=== PATIENT | female | born 1970 | race Caucasian/White ===

== ENCOUNTER 2020-02-03 03:00 | Emergency (ER) | payer MEDICARE, MEDICAID, SELFPAY ==
--- NOTE | ~2020-02-03 | CT_ITS ---
EXAMINATION: CT abdomen pelvis w con DATE: 02/03/2020 03:55 INDICATION: Epigastric abdominal pain. Nausea. TECHNIQUE: Computed tomography (CT) of the abdomen and pelvis was performed with 100 mL Omnipaque 350 intravenous contrast. Automated exposure control and iterative reconstruction technique were employe d. The dose-length product was 293.07 mGy-cm. COMPARISON: None. FINDINGS: The visualized portions of the lung bases are clear without pneumonia or pleural effusion. The heart size is normal. No pericardial effusion. There are areas of low-attenuation in segment III of the liver. A calcification in the liver is consistent with old granulomatous disease. There are ch anges of cholecystectomy. Pancreas divisum is noted. The spleen and adrenal glands are normal. There are cysts in the kidneys measuring up to 1.4 cm in the right. There are no dilated loops of bowel. Th e appendix is normal. The stomach demonstrates changes of fundoplication. There are no pathologically enlarged lymph nodes. There is no free intraperitoneal fluid. There is lumbar dextroscoliosis and mi ld spondylosis. IMPRESSION: 1. Areas of low attenuation in segment III of the liver that may be steatosis or infarct. Reviewed, dictated and finalized at location A. IMPRESSION: 1. Areas of low attenuation in segment III of the liver that may be steatosis o r infarct.
[2020-02-03 02:57] VITALS: BP 132/92; PULSE 100; RESP 17; TEMP 36.3; O2SAT 98
--- NOTE | 2020-02-03 03:12 | ED.ABDPAIN ---
HPI - Abdominal Pain General Chief Complaint: Abdominal Pain Stated Complaint: ABD PAIN Time Seen by Provider: 02/03/20 03:08 Source: RN notes reviewed History of Present Illness HPI narrative: Patient presents emergency department from home via EMS for abdominal pain. Patient states symptoms began 1 week ago. States she is had pain across the upper abdomen described as cramping in nature associated with nausea vomiting and diarrhea. Patient states approximate 1 week ago she was seen at [facility] and diagnosed with colitis. States she is follow-up with her PCP and was started on Augmentin and Cipro but did not like the way the Cipro made her feel and stopped taking the Cipro. Patient was given Zofran by EMS in route. Denies any fevers or chills chest pain shortness of breath or any other symptoms. Patient states the pain is worse with eating Related Data Home Medications Medication Instructions Recorded Confirmed amoxicillin-pot clavulanate 1 tablet PO Q12H 02/03/20 [Augmentin] ondansetron HCl [Zofran] 4 mg PO Q6H PRN 02/03/20 venlafaxine [Effexor XR] 75 mg PO DAILY 02/03/20 Allergies Allergy/AdvReac Type Severity Reaction Status Date / Time azithromycin Allergy Unknown STOMACH Verified 02/03/20 03:22 UPSET PROCHLORPERAZINE EDISYLATE Allergy Severe CONFUSION Uncoded 02/03/20 03:22 PROCHLORPERAZINE MALEATE Allergy Severe CONFUSION Uncoded 02/03/20 03:22 Review of Systems Review of Systems: Narrative: Gen.: Denies fevers or chills ENT: Denies congestion Respiratory: Denies shortness of breath or cough CV: Denies chest pain or palpitations GI: See HPI denies burning, urgency, frequency or hematuria Musculoskeletal: Denies back pain or muscle pain Neuro: Denies numbness, tingling, weakness or focal weakness Skin: Denies rash Except as documented, all other systems reviewed and negative [facility] Past Medical History Medical History (Updated 02/03/20 @ 05:04 by Rip Anderson DO) Migraine headache Surgical History Surgical History (Updated 02/03/20 @ 03:13 by Rip Anderson DO) History of cholecystectomy Family History Family History (Updated 04/27/14 @ 07:13 by DOCTOR UNKNOWN) Mother Family history of elevated blood lipids Family history of arthritis Sibling Family history of arthritis Other Cerebrovascular accident Family history of cardiovascular disease Hypertension Social History Social History Smoking status: Never smoker Alcohol intake: current Exam Narrative: Exam Narrative: APPEARANCE: No acute distress, nontoxic, resting in bed HEENT: Normocephalic, atraumatic, OMM RESPIRATORY: No respiratory distress, clear to auscultation bilaterally with no rhonchi wheezing or rales CARDIOVASCULAR: RRR s murmur ABDOMINAL: Soft, nondistended, tender palpation epigastric, right upper quadrant left upper quadrant, no tenderness right lower quadrant left lower quadrant, no rebound or guarding MUSCULOSKELETAl: Moves all extremities. No clubbing, cyanosis or edema. NEURO: Awake and alert. Following commands, speech normal, no focal deficits SKIN:: Warm, dry. Normal Color PSYCHIATRIC: Normal affect/mood Course Course Emergency Course: Patient states that they are feeling much better at this time. States abdominal pain has resolved. Repeat abdominal exam shows the patient's abdomen to be soft and nontender. Discussed with patient results of workup and diagnosis. Discussed need for follow-up with primary care physician, reasons to return to the emergency department in proper use of medication. Patient understands and agrees to current treatment plan. Discussed with patient need for follow-up with GI and need for possible EGD Vital Signs Vital signs: Vital Signs Temperature 97.3 F L 02/03/20 02:57 Pulse Rate 100 02/03/20 02:57 Respiratory Rate 17 02/03/20 02:57 Blood Pressure 132/92 H 02/03/20 02:57 Puls
[2020-02-03] MEDS: MORPHINE SULFATE 4 MG/ML INJ IV PUSH (03:19)
[2020-02-03] MEDS: SODIUM CHLORIDE 0.9% IV 1,000 ML 999 ML IV CONT (03:19)
[2020-02-03 03:31] LABS: Basophils Percent Auto 0.4 % (0.2-1.2); Eosinophils Percent Auto 0.7 % (0-4.4); Hematocrit 39.8 % (37.0-47.0); Hemoglobin 13.4 g/dL (12.0-15.0); Immature Granulocyte Absolute 0.03 K/mm3 (0.00-0.031); Immature Granulocyte Percent A 0.5 % (0-0.5); Lymphocytes Percent Auto 24.6 % (18.3-44.2); Mean Corpuscular HGB Conc 33.7 g/dl (32-36); Mean Corpuscular Hemoglobin 30.3 pg (26-34); Mean Platelet Volume 10.9 fl (7.4-10.4); Monocytes Absolute Auto 0.5 K/mm3 (0.1-0.6); Monocytes Percent Auto 8.6 % (2.6-8.5); Neutrophils Absolute Auto 3.7 K/mm3 (1.3-6.7); Neutrophils Percent Auto 65.2 % (45.5-73.1); Platelet Count Result 285 k/mm3 (150-375); Red Blood Count 4.42 M/mm3 (4.2-5.4); Red Cell Distribution Width 12.7 % (11.5-14.5); White Blood Count 5.7 K/mm3 (4.5-10.0)
[2020-02-03 03:39] LABS: Lactic Acid Reflex 2.1 mmol/L (0.7-2.1)
[2020-02-03 03:40] LABS: Alanine Aminotransferase 19 U/L (4-35); Albumin Level 5.2 g/dL (3.5-5.1); Alkaline Phosphatase 74 U/L (38-126); Aspartate Amino Transferase 37 U/L (14-36); Bilirubin,Total 0.6 mg/dL (0.2-1.3); Blood Urea Nitrogen 10 mg/dL (7-17); Carbon Dioxide 26 mmol/L (22-30); Chloride 100 mmol/L (98-107); Estimated CRCL calculation 72 ml/min; Estimated Glomerular Filt Rate > 60; Glucose 115 mg/dL (65-105); Lipase 306 U/L (23-300); Potassium 3.1 mmol/L (3.4-5.0); Sodium 138 mmol/L (137-145)
[2020-02-03 03:45] LABS: Prothrombin Time 12.9 Seconds (11.1-14.7)
[2020-02-03 03:48] LABS: Partial Thromboplastin Time 27.9 SECONDS (22.3-36.8)
[2020-02-03 03:59] LABS: Add Urine Microscopic? NO; Appearance Urine Clear (Clear); Bacteria Urine Trace /hpf; Bilirubin Urine Negative (Negative); Blood Urine Negative (Negative); Color Urine Straw (Yellow); Glucose Urine UA Negative (Negative); Ketones Urine Negative (Negative); Leukocyte Esterase Ur Negative LEU/UL (Negative); Mucus Urine Rare /lpf; Nitrate Urine Negative (Negative); Protein Urine Negative (Negative); RBC Urine 0-2 /hpf (0-2); Specific Grav Ur 1.005 (1.001-1.035); Squamous Epithelial Cell Urine Moderate /hpf (Few); Urobilinogen Urine Negative mg/dL (<2.0); WBC Urine 0-3 /hpf
[2020-02-03 04:15] VITALS: BP 133/76; PULSE 57; RESP 16; O2SAT 100
[2020-02-03] MEDS: DICYCLOMINE HCL INJ 20 MG/2 ML VIAL IM (04:17)
[2020-02-03] MEDS: POTASSIUM CHLORIDE 20 MEQ TABLET 40 MEQ PO (05:10)
[2020-02-03] MEDS: PANTOPRAZOLE SODIUM IV 40 MG VIAL IV PUSH (05:10)
[2020-02-03 05:14] VITALS: BP 123/80; PULSE 64; RESP 15; O2SAT 100
[2020-02-03 06:25] LABS: Reflex Lactic Acid Yes or No Add Lactic
--- NOTE | 2020-02-03 13:27 | ECG_ITS ---
Measurements Intervals [place] Rate: 63 P: 51 ND: 122 QRS: 52 QRSD: 88 T: 43 QT: 434 QTc: 444 Interpretive Statements SINUS RHYTHM FREQUENT ATRIAL PREMATURE COMPLEXES NONSPECIFIC ST & T-WAVE ABNORMALITY- ANT/INF LEADS BASELINE ARTIFACT- II, III, AVF ABNORMAL ECG Electronically Signed On 02-03-2020 14:38:21 CDT by Cabrera Myoa D.O.
== END 2020-02-03 05:25 | disposition home or self-care (01) ==
PROVIDERS: Emergency Provider Emergency Medicine
DX: R10.10 Upper abdominal pain, unspecified (principal); I49.1 Atrial premature depolarization; R94.31 Abnormal electrocardiogram [ECG] [EKG]
CPT/HCPCS: 36415; 74177; 80053; 81003; 83605; 83690; 85025; 85610; 85730; 93005; 96361; 96372; 96374; 96375; 99284; A9270; C9113; J0500; J2270; J7030; Q9967

== ENCOUNTER 2020-02-03 05:59 | Observation (INO) | payer MEDICARE, MEDICAID, SELFPAY ==
[2020-02-03] VITALS (22 sets, daily range): BP systolic 99–137; BP diastolic 54–84; PULSE 49–91; RESP 14–21; TEMP 36.4–36.8; O2SAT 95–100; BMI 22.6
--- NOTE | ~2020-02-03 | XR_ITS ---
EXAMINATION: XR chest 1V portable DATE: 02/03/2020 06:27 INDICATION: Dizziness. TECHNIQUE: A single frontal view of the chest was obtained. COMPARISON: CT abdomen and pelvis 02/03/2020 FINDINGS: The chest demonstrates clear lungs without pneumonia, pleural effusion, or pneumothorax. Th e heart size is normal. IMPRESSION: 1. No acute cardiopulmonary disease. Reviewed, dictated and finalized at location A.
--- NOTE | ~2020-02-03 | MR_ITS ---
EXAMINATION: MR abdomen wo/w con DATE: 02/04/2020 16:00 INDICATION: Abnormal liver function tests. TECHNIQUE: Magnetic resonance imaging (MRI) of the abdomen was performed without and with 10 mL Multi Tayla intravenous contrast. Sequences included coronal T2-weighted FS FSE, coronal and axial FS FIEST A, axial T2-weighted FSE, coronal LAVA-flex, axial STIR FSE, axial DWI, axial dual-echo T1-weighted F SPGR, and axial LAVA. Postcontrast sequences included coronal LAVA-flex and a time course of axial LA VA. COMPARISON: CT abdomen and pelvis 02/03/2020 FINDINGS: There is a calcification in the liver, consistent with old granulomatous disease. There is focal stea tosis in segment III of the liver correlating with the CT abnormality. Periportal edema is noted. The portal veins are patent. The gallbladder is absent. The spleen, pancreas, and adrenal glands are nor mal. There are cysts in the kidneys measuring up to 12 mm in the right. There are no dilated loops of bowel. There is a small volume of ascites. There are no pathologically enlarged lymph nodes. IMPRESSION: 1. Focal steatosis in segment III of the liver correlating with the CT abnormality. 2. Small volume of ascites. Reviewed, dictated and finalized at location E. IMPRESSION: 1. Focal steatosis in segment III of the liver correlating with the CT abnormal ity. 2. Small volume of ascites.
--- NOTE | 2020-02-03 06:01 | ECG_ITS ---
Measurements Intervals [place] Rate: 67 P: SC: 0 QRS: 57 QRSD: 83 T: 15 QT: 399 QTc: 422 Interpretive Statements ATRIAL FIBRILLATION BORDERLINE ST-T WAVE ABNORMALITY- DIFFUSE LEADS BASELINE ARTIFACT- I, II, III, AVR, AVL, AVF, V1-V6 ABNORMAL ECG Electronically Signed On 02-03-2020 7:06:36 CDT by Cabrera Moya D.O.
--- NOTE | 2020-02-03 06:12 | ED.DIZZY ---
HPI - Dizziness General Chief Complaint: Dizziness Stated Complaint: feeling dizzy and nauseated Time Seen by Provider: 02/03/20 06:01 History of Present Illness HPI Narrative: Patient presents to the emergency department from the emergency department waiting room for nausea. Patient had been seen in the emergency department for abdominal pain over the past week associated with nausea vomiting. The patient states she is waiting the waiting room when she again became nauseous states that she had a hot feeling go across her and became dizzy. At that time the patient checked back in for further evaluation. Patient states she still feels nauseous at this time. She denies any current abdominal pain denies chest pain shortness of breath or any other symptoms. The patient had previously received Zofran by EMS. Related Data Home Medications Medication Instructions Recorded Confirmed amoxicillin-pot clavulanate 1 tablet PO Q12H 02/03/20 [Augmentin] ondansetron HCl [Zofran] 4 mg PO Q6H PRN 02/03/20 venlafaxine [Effexor XR] 75 mg PO DAILY 02/03/20 Allergies Allergy/AdvReac Type Severity Reaction Status Date / Time azithromycin Allergy Unknown STOMACH Verified 02/03/20 06:44 UPSET PROCHLORPERAZINE EDISYLATE Allergy Severe CONFUSION Uncoded 02/03/20 06:44 PROCHLORPERAZINE MALEATE Allergy Severe CONFUSION Uncoded 02/03/20 06:44 Review of Systems Review of Systems: Narrative: Gen.: Denies fevers or chills Eyes: Denies eye pain or visual change ENT: Denies congestion Respiratory: Denies shortness of breath or cough CV: Denies chest pain or palpitations GI: Reports nausea vomiting and abdominal pain denies diarrhea Musculoskeletal: Denies back pain or muscle pain Neuro: Denies numbness, tingling, weakness or focal weakness reports dizziness Skin: Denies rash Except as documented, all other systems reviewed and negative COUNTS INCLUDE 234 BEDS AT THE [facility] Past Medical History Medical History Migraine headache Surgical History Surgical History (Updated 02/03/20 @ 03:13 by Rip Anderson DO) History of cholecystectomy Family History Family History (Updated 04/27/14 @ 07:13 by DOCTOR UNKNOWN) Mother Family history of elevated blood lipids Family history of arthritis Sibling Family history of arthritis Other Cerebrovascular accident Family history of cardiovascular disease Hypertension Social History Social History Smoking status: Never smoker Alcohol intake: current Gender identity (if verbalized by the patient): Female Exam Narrative: Exam Narrative: APPEARANCE: No acute distress, nontoxic, resting in bed EYES: EOMI HEENT: Normocephalic, atraumatic, OMM RESPIRATORY: No respiratory distress Clear to auscultation bilaterally with no rhonchi wheezing or rales. CARDIOVASCULAR: Regular rate and rhythm without murmurs rubs or gallops. ABDOMINAL: Soft, nontender, nondistended, no rebound or guarding MUSCULOSKELETAl: Moves all extremities. No clubbing, cyanosis or edema. NEURO: Awake and alert. Following commands, speech normal, no focal deficits SKIN:: Warm, dry. No rashes lesions or abrasions PSYCHIATRIC: Normal affect/mood, Course Course Emergency Course: Reviewed patient's previous records CT scan head showed no acute process lab work is been within normal limits Received a call from Dr. Fowler for radiology who come in to read states an overread from patient's previous CT scan shows area of low attenuation in segment 3 of the liver that may be an infarct or steatosis. No signs of blood clots and all vessels are patent Discussed with Dr. Aguilar presentation work-up. Agrees with admission at this time with consult to GI Discussed with patient and family results of workup and diagnosis. Discussed need for admission. Patient and family understand and agree to current treatment plan Vital Signs Vital signs:
[2020-02-03] MEDS: SODIUM CHLORIDE 0.9% IV 1,000 ML 999 ML IV CONT (06:35)
[2020-02-03] MEDS: PROMETHAZINE HCL 25 MG/ML AMPUL 12.5 MG IV PUSH (06:43)
[2020-02-03 07:03] LABS: Troponin I < 0.012 ng/mL (0.000-0.034)
--- NOTE | 2020-02-03 08:30 | ADMGEN ---
This patient, Sarahy Gill, was admitted to 2 Medical Room 260-01. Patient/family oriented to hospital policies and general routines including ID bracelet, bed and alarms, visiting hours, pain management, procedures, bathroom and other care routines, personal items, smoking policy, room service/diet, and visiting hours. Valuables list has been completed. Information on how to activate the Rapid Response Team has been discussed. Patient/Family are encouraged to report perceived risks to care and to ask questions if they do not understand what they are told or what they should do.
[2020-02-03] MEDS: SODIUM CHLORIDE 0.9% IV 1,000 ML 125 ML IV CONT ×2 (09:34→19:11)
--- NOTE | 2020-02-03 14:33 | WPDANESEPPF ---
Anes - Initial Pre Proc Eval Procedure: Operation Date: 02/03/20 14:30 Proposed Procedures p Esophagogastroduodenoscopy - Alverto Salmeron MD Date/Time: 02/03/20 14:33 Surgeon: Mandeep Aguilar MD Pre Op Diagnosis: INTRACTABLE NAUSEA VOMITING,ABDOMINAL PAIN,HEPATIC Patient Data Age: 49 Gender: F Height: 5 ft 4 in Weight: 59.8 kg Last Vital Signs Temp 36.7 C 02/03/20 14:30 Pulse 57 L 02/03/20 14:30 Resp 18 02/03/20 14:30 BP 127/65 02/03/20 14:30 Pulse Ox 99 02/03/20 14:30 Allergies Allergy/AdvReac Type Severity Reaction Status Date / Time azithromycin Allergy Unknown STOMACH Verified 02/03/20 06:44 UPSET PROCHLORPERAZINE EDISYLATE Allergy Severe CONFUSION Uncoded 02/03/20 06:44 PROCHLORPERAZINE MALEATE Allergy Severe CONFUSION Uncoded 02/03/20 06:44 Home Medications Medication Instructions Recorded Confirmed Type amoxicillin-pot clavulanate 1 tablet PO Q12H 02/03/20 02/03/20 History [Augmentin] gabapentin 100 mg PO TID PRN 02/03/20 02/03/20 History midodrine 5 mg PO BID 02/03/20 02/03/20 History venlafaxine [Effexor XR] 150 mg PO DAILY 02/03/20 02/03/20 History Laboratory Tests 02/03/20 03:22 Troponin I < 0.012 ng/mL ng/mL (0.000-0.034) Patient hx anesthesia problems: none Family hx anesthesia problems: none PMFSH Past Medical History Medical History (Updated 02/03/20 @ 14:34 by Ernesto Kern MD) Migraine headache Neuropathy Surgical History Surgical History History of cholecystectomy Family History Family History Mother Family history of elevated blood lipids Family history of arthritis Sibling Family history of arthritis Other Cerebrovascular accident Family history of cardiovascular disease Hypertension Social History Social History Smoking packs per day: 0.5 Smoking cigarettes per day: 10.0 Years smoked: 10 Smoking pack-years: 5.00 Smoking status: Former smoker Tobacco type: cigarettes Alcohol intake: current Drinks per week: 1 Substance use: current Substance use type: marijuana Last use: 01-02-20 Gender identity (if verbalized by the patient): Female Spiritual care concerns: No Anes - Eval Final PreProcedure Day of Procedure 02/03/20 14:33 Patient weight: normal Heart: regular rate and rhythm Lungs: clear to auscultation Airway: Mallampati scale class II Neurological: alert and oriented Last oral intake: >/= 8 hours ASA classification: III Emergent: no Anesthetic plan: proceed Anesthesia type and monitoring: general GIVS and standard monitoring Informed Consent: The patient's anesthetic plan and its attendant risks and benefits were discussed with the patient/family/POA. Questions were solicited and answers provided to the satisfaction of the patient/family/POA.
[2020-02-03] MEDS: LACTATED RINGERS 1,000 ML 150 ML IV CONT (14:36)
[2020-02-03] MEDS: BENZOCAINE (*SP) 60 ML SPRAY CAN (HURRICAINE) 1 SPRAY MUCOUS MEM (14:41)
--- NOTE | 2020-02-03 14:51 | WPDGICN ---
Assessment and Plan Assessment and plan (1) Epigastric abdominal pain: Code(s): R10.13 - Epigastric pain Status: Acute Assessment and Plan: Patient has had epigastric pain for 1 and half weeks. Has been to the ER several times during this interval of time. No response to current therapy. Plan is for EGD to assess whether her previous fundoplication is intact. And to exclude ulcer disease. In the interim we will treat her with proton pump inhibitor such as Protonix. [place] diet anti-reflux measures to include elevating head of bed at night. Further recommendations after endoscopy. (2) History of [place] fundoplication: Code(s): Z98.890 - Other specified postprocedural states Status: Acute (3) Nausea & vomiting: Code(s): R11.2 - Nausea with vomiting, unspecified Status: Acute GI Consult Note Consult date/time: 02/03/20 14:51 HPI: Sarahy Gill is a 49 year old female Seen in evaluation at the request of the emergency room. Patient reports no 1/2 weeks of nausea vomiting. She has had intermittent dry heaves. Very little actual emesis. She has had several loose diarrhea stools that this interval of time. She initially presented to [facility] Emergency Room. A CT scan was performed findings which are not available. She was treated with Zofran because of persistent difficulties over the last weeks she presented [facility] yesterday. She initially was discharged but returned and was admitted for further evaluation. She continues to complain of epigastric discomfort. She is no longer vomiting. Past medical history is significant for a hiatal hernia and GE reflux. She had a fundoplication hiatal hernia repair in 2012. She reports having been told that she had colitis . Is uncertain how this diagnosis was established. The emergency room CT scan last night is unremarkable aside from fatty liver. Review of Systems Review of Systems: All systems reviewed & are unremarkable except as noted in HPI and below PMFSH Past Medical History Medical History Migraine headache Neuropathy Surgical History Surgical History History of cholecystectomy Family History Family History Mother Family history of elevated blood lipids Family history of arthritis Sibling Family history of arthritis Other Cerebrovascular accident Family history of cardiovascular disease Hypertension Social History Social History Smoking packs per day: 0.5 Smoking cigarettes per day: 10.0 Years smoked: 10 Smoking pack-years: 5.00 Smoking status: Former smoker Tobacco type: cigarettes Alcohol intake: current Drinks per week: 1 Substance use: current Substance use type: marijuana Last use: 01-02-20 Gender identity (if verbalized by the patient): Female Spiritual care concerns: No Meds Home Medications and Allergies Home Medications Medication Instructions Recorded Confirmed Type amoxicillin-pot clavulanate 1 tablet PO Q12H 02/03/20 02/03/20 History [Augmentin] gabapentin 100 mg PO TID PRN 02/03/20 02/03/20 History midodrine 5 mg PO BID 02/03/20 02/03/20 History venlafaxine [Effexor XR] 150 mg PO DAILY 02/03/20 02/03/20 History Allergies Allergy/AdvReac Type Severity Reaction Status Date / Time azithromycin Allergy Unknown STOMACH Verified 02/03/20 06:44 UPSET PROCHLORPERAZINE EDISYLATE Allergy Severe CONFUSION Uncoded 02/03/20 06:44 PROCHLORPERAZINE MALEATE Allergy Severe CONFUSION Uncoded 02/03/20 06:44 Vital Signs Vital Signs - 24 hr 02/03/20 06:00 02/03/20 06:34 02/03/20 06:45 Temperature 36.8 C Pulse Rate 65 66 51 L Respiratory Rate 16 20 Blood Pressure 132/84 133/80 130/73 Pulse Oximetry 99 02/03/20 07:0
[2020-02-03] MEDS: VENLAFAXINE HCL XR 75 MG CAP.ER.24H 150 MG PO (16:04)
[2020-02-03] MEDS: ONDANSETRON INJ 4 MG/2 ML VIAL IV PUSH ×2 (16:46→20:20)
--- NOTE | 2020-02-03 16:46 | PM.IMHP ---
H&P: HPI History of Present Illness Chief complaint: INTRACTABLE NAUSEA VOMITING,ABDOMINAL PAIN,HEPATIC Narrative: Sarahy Gill is a 49 year old female admitted with severe nausea and vomiting, pt has history of colitis. but denies much diarrhea this visit. pt describes more pain in her epigastric stomach area. pt had been to [place] with similar compliants. pt has history of fundoplication hiatal hernia repair in 2013. gi is consulted. ct abdo states liver infarct or steatosis unsure of this. pt main compliant is severe abdo pain, nausea and vomiting. denies vomiting any blood pt is a smoker and has history of hiatal hernia Review of Systems Review of Systems: All systems reviewed & are unremarkable except as noted in HPI and below Gastrointestinal: Gastrointestinal: Reports abdominal pain, Reports excessive flatus, Reports dyspepsia, Reports nausea and Reports vomiting PMFSH Past Medical History Medical History Migraine headache Neuropathy Surgical History Surgical History History of cholecystectomy Family History Family History Mother Family history of elevated blood lipids Family history of arthritis Sibling Family history of arthritis Other Cerebrovascular accident Family history of cardiovascular disease Hypertension Social History Social History Smoking packs per day: 0.5 Smoking cigarettes per day: 10.0 Years smoked: 10 Smoking pack-years: 5.00 Smoking status: Former smoker Tobacco type: cigarettes Alcohol intake: current Drinks per week: 1 Substance use: current Substance use type: marijuana Last use: 01-02-20 Gender identity (if verbalized by the patient): Female Spiritual care concerns: No Meds Home Medications and Allergies Home Medications Medication Instructions Recorded Confirmed Type amoxicillin-pot clavulanate 1 tablet PO Q12H 02/03/20 02/03/20 History [Augmentin] gabapentin 100 mg PO TID PRN 02/03/20 02/03/20 History midodrine 5 mg PO BID 02/03/20 02/03/20 History venlafaxine [Effexor XR] 150 mg PO DAILY 02/03/20 02/03/20 History Allergies Allergy/AdvReac Type Severity Reaction Status Date / Time azithromycin Allergy Unknown STOMACH Verified 02/03/20 06:44 UPSET PROCHLORPERAZINE EDISYLATE Allergy Severe CONFUSION Uncoded 02/03/20 06:44 PROCHLORPERAZINE MALEATE Allergy Severe CONFUSION Uncoded 02/03/20 06:44 Vital Signs Vital Signs - 24 hr 02/03/20 06:00 02/03/20 06:34 02/03/20 06:45 Temperature 36.8 C Pulse Rate 65 66 51 L Respiratory Rate 16 20 Blood Pressure 132/84 133/80 130/73 Pulse Oximetry 99 02/03/20 07:00 02/03/20 07:01 02/03/20 07:15 Temperature Pulse Rate 70 65 62 Respiratory Rate 15 16 15 Blood Pressure 124/79 129/71 Pulse Oximetry 95 100 99 02/03/20 07:16 02/03/20 07:17 02/03/20 07:30 Temperature Pulse Rate 62 60 67 Respiratory Rate 16 14 14 Blood Pressure 124/79 Pulse Oximetry 99 97 99 02/03/20 07:31 02/03/20 07:45 02/03/20 08:00 Temperature Pulse Rate 63 63 57 L Respiratory Rate 14 16 16 Blood Pressure 117/80 Pulse Oximetry 98 97 96 02/03/20 08:15 02/03/20 10:00 02/03/20 14:30 Temperature 36.4 C L 36.7 C Pulse Rate 88 52 L 57 L Respiratory Rate 21 H 16 18 Blood Pressure 117/73 127/65 Pulse Oximetry 96 98 99 02/03/20 14:50 02/03/20 15:00 02/03/20 15:10 Temperature Pulse Rate 56 L 51 L 57 L Respiratory Rate 17 20 18 Blood Pressure 117/61 99/54 L 101/65 Pulse Oximetry 98 98 98 02/03/20 15:18 Temperature Pulse Rate 57 L Respiratory Rate 18 Blood Pressure 109/63 Pulse Oximetry 99 Exam Const: General: well developed Nutritional Appearance: well nourished HENMT: Head: normocephalic Eyes: General: appearance norm
[2020-02-03] MEDS: MIDODRINE HCL 2.5 MG TABLET 5 MG PO (16:49)
--- NOTE | 2020-02-03 20:33 | ECG_ITS ---
Measurements Intervals [place] Rate: 67 P: 8 NM: 128 QRS: 57 QRSD: 85 T: 58 QT: 433 QTc: 459 Interpretive Statements SINUS RHYTHM ATRIAL PREMATURE COMPLEXES BASELINE ARTIFACT- I, II, III, AVR, AVL, AVF BORDERLINE ECG Electronically Signed On 02-04-2020 7:09:33 CDT by Cabrera Moya D.O.
--- NOTE | 2020-02-03 20:37 | PC.NURSE ---
Pt complaint of chest pain, sob,nausea and complaints of not being able to straighten her hands on either side of her body.
[2020-02-03] MEDS: PANTOPRAZOLE 40 MG TABLET PO (20:42)
[2020-02-03] MEDS: FAMOTIDINE 20 MG/2 ML VIAL IV PUSH (20:42)
[2020-02-03 21:24] LABS: Troponin I < 0.012 ng/mL (0.000-0.034)
[2020-02-03] MEDS: PROMETHAZINE HCL 25 MG/ML AMPUL IM (21:50)
--- NOTE | 2020-02-03 23:36 | ECG_ITS ---
Measurements Intervals [place] Rate: 59 P: 22 NH: 125 QRS: 25 QRSD: 89 T: 8 QT: 453 QTc: 451 Interpretive Statements SINUS BRADYCARDIA WITH SINUS ARRHYTHMIA ATRIAL PREMATURE COMPLEX EARLY PRECORDIAL R/S TRANSITION BASELINE ARTIFACT- I, II, III, AVL, AVF, V1 BORDERLINE ECG Electronically Signed On 02-04-2020 7:12:24 CDT by Cabrera Moya D.O.
[2020-02-04] MEDS: MORPHINE SULFATE 4 MG/ML INJ 2 MG IV PUSH (00:02)
[2020-02-04] MEDS: ONDANSETRON INJ 4 MG/2 ML VIAL IV PUSH ×3 (00:02→19:26)
[2020-02-04] MEDS: SODIUM CHLORIDE 0.9% IV 1,000 ML 125 ML IV CONT (04:32)
[2020-02-04 05:40] LABS: Basophils Percent Auto 0.2 % (0.2-1.2); Hematocrit 33.8 % (37.0-47.0); Hemoglobin 10.9 g/dL (12.0-15.0); Immature Granulocyte Absolute 0.06 K/mm3 (0.00-0.031); Immature Granulocyte Percent A 0.4 % (0-0.5); Lymphocytes Absolute Auto 0.71 K/mm3 (0.9-3.2); Lymphocytes Percent Auto 4.6 % (18.3-44.2); Mean Corpuscular HGB Conc 32.2 g/dl (32-36); Mean Corpuscular Volume 93.1 fl (80-100); Mean Platelet Volume 11.7 fl (7.4-10.4); Monocytes Absolute Auto 0.6 K/mm3 (0.1-0.6); Monocytes Percent Auto 3.7 % (2.6-8.5); Neutrophils Absolute Auto 14.1 K/mm3 (1.3-6.7); Neutrophils Percent Auto 91.1 % (45.5-73.1); Platelet Count Result 221 k/mm3 (150-375); Red Blood Count 3.63 M/mm3 (4.2-5.4); Red Cell Distribution Width 13.1 % (11.5-14.5); White Blood Count 15.5 K/mm3 (4.5-10.0)
[2020-02-04 05:43] LABS: Alanine Aminotransferase 76 U/L (4-35); Albumin Level 3.9 g/dL (3.5-5.1); Alkaline Phosphatase 105 U/L (38-126); Aspartate Amino Transferase 115 U/L (14-36); Bilirubin,Total 0.5 mg/dL (0.2-1.3); Blood Urea Nitrogen 10 mg/dL (7-17); Calcium 8.6 mg/dL (8.4-10.2); Carbon Dioxide 24 mmol/L (22-30); Chloride 109 mmol/L (98-107); Estimated CRCL calculation 96 ml/min; Estimated Glomerular Filt Rate > 60; Glucose 101 mg/dL (65-105); Potassium 3.5 mmol/L (3.4-5.0); Sodium 138 mmol/L (137-145)
--- NOTE | 2020-02-04 08:03 | WPDANESPN ---
Anes - Prog Note Post-Op Date/Time: 02/04/20 08:03 Cardiovascular status: normal Respiratory status: normal Airway patency: baseline Mental status: baseline Post-Op hydration status: normal Vital Signs: Last Vital Signs Temp 36.7 C 02/03/20 14:30 Pulse 82 02/03/20 20:35 Resp 18 02/03/20 20:35 BP 132/84 02/03/20 23:34 Pulse Ox 98 02/03/20 20:35 I/O: Intake & Output 02/03/20 02/04/20 02/04/20 23:59 07:59 15:59 Intake Total 1110 1000 Output Total 500 400 Balance 610 600 Laboratory Tests 02/04/20 05:00 02/04/20 05:00 02/03/20 02/04/20 02/04/20 20:55 05:00 05:00 WBC 15.5 H RBC 3.63 L Hgb 10.9 L Hct 33.8 L MCV 93.1 MCH 30.0 MCHC 32.2 RDW 13.1 Plt Count 221 MPV 11.7 H Immature Gran % (Auto) 0.4 Neut % (Auto) 91.1 H Lymph % (Auto) 4.6 L [place] % (Auto) 3.7 Eos % (Auto) 0.0 Baso % (Auto) 0.2 Lymph # (Auto) 0.71 L [place] # (Auto) 0.6 Eos # (Auto) 0.0 Baso # (Auto) 0.0 Abs Immat Gran (auto) 0.06 H Absolute Neuts (auto) 14.1 H Absolute Nucleated RBC 0.0 Nucleated RBC % 0.0 Sodium 138 Potassium 3.5 Chloride 109 H Carbon Dioxide 24 BUN 10 Creatinine 0.50 L Estim Creat Clear Calc 96 Estimated GFR > 60 Glucose 101 Calcium 8.6 Total Bilirubin 0.5 AST 115 H ALT 76 H Alkaline Phosphatase 105 Troponin I < 0.012 Total Protein 6.0 L Albumin 3.9 Post-procedural complaints: none Patient Feedback: Patient satisfied with anesthetic care.
[2020-02-04] MEDS: MIDODRINE HCL 2.5 MG TABLET 5 MG PO ×2 (09:37→16:33)
[2020-02-04] MEDS: PANTOPRAZOLE 40 MG TABLET PO ×2 (09:37→19:26)
[2020-02-04] MEDS: VENLAFAXINE HCL XR 75 MG CAP.ER.24H 150 MG PO (09:37)
--- NOTE | 2020-02-04 09:59 | PM.IMPN ---
Progress Note: A&P Assessment and Plan (1) Epigastric abdominal pain: Code(s): R10.13 - Epigastric pain Status: Acute Assessment and Plan: Dr. Salmeron following; appreciate recommendations. Pain possible related to GERD. Pain has improved overnight; willing to advance her diet. EGD per Dr. Salmeron yesterday showed intact fundoplication and normal mucosa. Advance diet as tolerated Monitor If tolerating diet and okay with GI, will likely discharge in 1-2 days (2) Nausea & vomiting: Code(s): R11.2 - Nausea with vomiting, unspecified Status: Resolved Assessment and Plan: Improved overnight Will advance diet as tolerated to bland diet Zofran as needed (3) GERD (gastroesophageal reflux disease): Code(s): K21.9 - Gastro-esophageal reflux disease without esophagitis Status: Acute Assessment and Plan: Possible etiology behind pain. Will continue PPI therapy, bland diet GI following and appreciate recommendations (4) History of Gary fundoplication: Code(s): Z98.890 - Other specified postprocedural states Status: Acute Assessment and Plan: Hx of hiatal hernia s/p Gary fundoplication. EGD this hospital stays shows intact fundoplication. GI following (5) Abnormal CT of liver: Code(s): R93.2 - Abnormal findings on diagnostic imaging of liver and biliary tract Status: Acute Assessment and Plan: CT abd/pelv w/ contrast read as Areas of low attenuation in segment III of the liver that may be steatosis or infarct. GI following and felt to be hepatic steatosis LFTs slightly increased overnight Monitor LFTs (6) Anxiety and depression: Code(s): F41.9 - Anxiety disorder, unspecified; F32.9 - Major depressive disorder, single episode, unspecified Status: Acute Assessment and Plan: pt takes venlafaxine for anxiety and depression. No acute issues at the moment Continue home medication Subjective Date/time seen: 02/04/20 09:59 Interval history: Patient is a 49 yo F with history of anxiety/depression, GERD, history of fundoplication who is here for evaluation for nausea/vomiting and epigastric pain. Patient states she had burning chest pain last night which has since resolved. She feels better today. No n/v today. BM yesterday; non-blood/non-melenic. She is willing to advance her diet today. Denies f/c/s, headaches, dizziness, lightheadedness, cp/palpitations, sob/cough, n/v/d/c, abd pain today, dysuria, hematuria, cloudy urine, calf pain/swelling. Review of Systems Review of Systems: All systems reviewed & are unremarkable except as noted in HPI and below Exam Narrative: Exam Narrative: Patient lying in semi-mathews's position at time of visit Const: General: cooperative, comfortable, no acute distress, well developed, alert and awake Nutritional Appearance: well nourished Orientation/consciousness: patient oriented x3 HENMT: Head: normocephalic and atraumatic General nose exam: Normal nares present Face and sinus: face symmetric Eyes: General: appearance normal, both eyes and all related structures EOM: EOMs intact bilaterally Neck: Neck: trachea midline and supple Chest: Chest palpation & inspection: normal inspection of the chest Resp: Effort & Inspection: normal respiratory effort Auscultation: clear to auscultation bilaterally Cardio: Rate: regular rate Rhythm: regular rhythm Heart sounds: no murmurs GI: Inspection: non-distended GI Palp: Yes abdominal tenderness (epigastric) and Yes Soft to palpation Auscultation: normal bowel sounds and normoactive bowel sounds : General: Yes no CVA tenderness Back/Spine/Pelvis: Back: no CVA tenderness Skin: General skin exam:
[2020-02-04 14:00] VITALS: BP 124/74; PULSE 68; RESP 14; TEMP 37; O2SAT 99
--- NOTE | 2020-02-04 14:17 | WPDGIPROGNO ---
Progress Note: A&P Additional Plan Patient alert comfortable at the present time. No longer nauseated. Apparently had significant nausea with vomiting last night associated with diarrhea. This lasted for about 1-1/2hour and has subsequently resolved. Physical exam reveals patient to be alert. Comfortable at rest. Vital signs are stable. Lungs are clear. Heart without murmur. Abdomen is soft nontender. Labs reveal elevated LFTs overnight. WBC 15.5, hemoglobin 10 0.9, total bilirubin 0.5, AST now 115, ALT 76. Patient has a history of cholecystectomy 20 years ago for gallbladder dysfunction. CT scan suggest fatty liver. But question of infarct in the liver was described. Impression 1. Recurrent nausea vomiting. Etiology unclear. May be related to elevated LFTs. 2. Intact fundoplication. Patient has a history of hiatal hernia repair many years ago. Surgery appears to be intact. Will continue PPI now because of heartburn and nausea. 3. Abnormal CT scan. Question of hepatic infarct is rather unusual. Given her elevated LFTs we may need to investigate this further. Plan is for MRI of the liver at this time. Continue to follow LFTs. Check hepatitis serologies. Subjective Date/time seen: 02/04/20 14:17 Objective Data Vital Signs Vital Signs: Vital Signs - 24 hr 02/03/20 14:30 02/03/20 14:50 02/03/20 15:00 Temperature 36.7 C Pulse Rate 57 L 56 L 51 L Respiratory Rate 18 17 20 Blood Pressure 127/65 117/61 99/54 L Pulse Oximetry 99 98 98 02/03/20 15:10 02/03/20 15:18 02/03/20 20:35 Temperature Pulse Rate 57 L 57 L 82 Respiratory Rate 18 18 18 Blood Pressure 101/65 109/63 137/72 Pulse Oximetry 98 99 98 02/03/20 23:34 Temperature Pulse Rate Respiratory Rate Blood Pressure 132/84 Pulse Oximetry Intake/Output Intake/Output: Intake & Output 02/01/20 02/02/20 02/03/20 02/04/20 23:59 23:59 23:59 23:59 Intake Total 2410 1000 Output Total 500 400 Balance 1910 600 Meds/Results Medications: Active Medications Generic Name Dose Route Start Last Admin Trade Name Freq PRN Reason Stop Dose Admin Acetaminophen 650 mg 02/04/20 07:24 Tylenol Tablet PO Q6H PRN Mild Pain (1-3) or Fever Gabapentin 100 mg 02/03/20 12:56 Neurontin PO TID PRN nerve pain Sodium Chloride 1,000 mls @ 75 mls/hr 02/03/20 06:45 02/04/20 09:37 Normal Saline Iv IV CONT 75 mls/hr .[id number] MERON Infusion Midodrine 5 mg 02/03/20 17:00 02/04/20 09:37 Proamatine PO 5 mg BID MERON Administration Ondansetron HCl 4 mg 02/03/20 06:44 02/04/20 04:32 Zofran Inj IV PUSH 4 mg Q4H PRN Administration Nausea Pantoprazole Sodium 40 mg 02/03/20 21:00 02/04/20 09:37 Protonix PO 40 mg Q12HR MERON Administration Venlafaxine HCl 150 mg 02/03/20 09:00 02/04/20 09:37 Effexor Xr PO 150 mg DAILY MERON Administration Radiology Results: ITS Impressions Chest X-Ray 02/03/20 06:29 IMPRESSION: 1. No acute cardiopulmonary disease. Labs Labs: Laboratory Results - last 24 hr 02/03/20 02/04/20 02/04/20 20:55 05:00 05:00 WBC 15.5 H RBC 3.63 L Hgb 10.9 L Hct 33.8 L MCV 93.1 MCH 30.0 MCHC 32.2 RDW 13.1 Plt Count 221 MPV 11.7 H Immature Gran % (Auto) 0.4 Neut % (Auto) 91.1 H Lymph % (Auto) 4.6 L [place] % (Auto) 3.7 Eos % (Auto) 0.0 Baso % (Auto) 0.2 Lymph # (Auto) 0.71 L [place] # (Auto) 0.6 Eos # (Auto) 0.0 Baso # (Auto) 0.0 Abs Immat Gran (auto) 0.06 H Absolute Neuts (auto) 14.1 H Absolute Nucleated RBC 0.0 Nucleated RBC % 0.0 Sodium 138 Potassium 3.5 Chloride 109 H Carbon Dioxide 24 BUN 10 Creatinine 0.50 L Estim Creat Clear Calc 96 Estimated GFR > 60 Glucose 101 Calcium 8.6 Total Bilirubin 0.5 AST 115 H ALT 76 H Alkaline Phosphatase 105 Troponin I < 0.012 Total Protein 6.0 L Albumin 3.9
[2020-02-04] MEDS: SODIUM CHLORIDE 0.9% IV 1,000 ML 75 ML IV CONT (14:45)
[2020-02-04 17:59] LABS: Alanine Aminotransferase 67 U/L (4-35); Albumin Level 3.8 g/dL (3.5-5.1); Alkaline Phosphatase 103 U/L (38-126); Aspartate Amino Transferase 77 U/L (14-36); Bilirubin,Total 0.4 mg/dL (0.2-1.3)
[2020-02-04 22:00] VITALS: BP 120/69; PULSE 89; RESP 18; TEMP 36.8; O2SAT 91
[2020-02-05] MEDS: ONDANSETRON INJ 4 MG/2 ML VIAL IV PUSH (03:23)
[2020-02-05] MEDS: SODIUM CHLORIDE 0.9% IV 1,000 ML 75 ML IV CONT ×2 (03:25→17:30)
[2020-02-05 06:00] VITALS: BP 127/63; PULSE 61; RESP 16; TEMP 36.7; O2SAT 100
[2020-02-05 08:08] LABS: Basophils Percent Auto 0.2 % (0.2-1.2); Hemoglobin 11.2 g/dL (12.0-15.0); Immature Granulocyte Absolute 0.07 K/mm3 (0.00-0.031); Immature Granulocyte Percent A 0.5 % (0-0.5); Lymphocytes Absolute Auto 1.33 K/mm3 (0.9-3.2); Lymphocytes Percent Auto 10.4 % (18.3-44.2); Mean Corpuscular Hemoglobin 29.6 pg (26-34); Mean Corpuscular Volume 92.6 fl (80-100); Mean Platelet Volume 11.7 fl (7.4-10.4); Monocytes Absolute Auto 0.6 K/mm3 (0.1-0.6); Monocytes Percent Auto 4.8 % (2.6-8.5); Neutrophils Absolute Auto 10.8 K/mm3 (1.3-6.7); Neutrophils Percent Auto 84.1 % (45.5-73.1); Platelet Count Result 234 k/mm3 (150-375); Red Blood Count 3.78 M/mm3 (4.2-5.4); Red Cell Distribution Width 13.3 % (11.5-14.5); White Blood Count 12.8 K/mm3 (4.5-10.0)
[2020-02-05 08:27] LABS: Alanine Aminotransferase 67 U/L (4-35); Albumin Level 3.7 g/dL (3.5-5.1); Alkaline Phosphatase 120 U/L (38-126); Aspartate Amino Transferase 64 U/L (14-36); Bilirubin,Total 0.4 mg/dL (0.2-1.3); Blood Urea Nitrogen 15 mg/dL (7-17); Calcium 8.4 mg/dL (8.4-10.2); Carbon Dioxide 23 mmol/L (22-30); Chloride 107 mmol/L (98-107); Estimated CRCL calculation 81 ml/min; Estimated Glomerular Filt Rate > 60; Glucose 73 mg/dL (65-105); Magnesium 1.9 mg/dL (1.6-2.3); Phosphorus 2.2 mg/dL (2.5-4.5); Potassium 3.6 mmol/L (3.4-5.0); Sodium 138 mmol/L (137-145)
[2020-02-05] MEDS: PANTOPRAZOLE 40 MG TABLET PO ×2 (09:55→21:28)
[2020-02-05] MEDS: VENLAFAXINE HCL XR 75 MG CAP.ER.24H 150 MG PO (09:56)
[2020-02-05] MEDS: MIDODRINE HCL 2.5 MG TABLET 5 MG PO ×2 (09:56→17:29)
--- NOTE | 2020-02-05 12:02 | PM.IMPN ---
Progress Note: A&P Assessment and Plan (1) Epigastric abdominal pain: Code(s): R10.13 - Epigastric pain Status: Acute Assessment and Plan: Dr. Salmeron following; appreciate recommendations. Pain possible related to GERD. Pain has improved overnight; willing to advance her diet. EGD per Dr. Salmeron yesterday showed intact fundoplication and normal mucosa. MRI abdomen shows focal steatosis in segment III of the liver correlating with the CT abnormality. Advance diet as tolerated Monitor If tolerating diet and okay with GI, will likely discharge in 1-2 days Further rec per GI service (2) Nausea & vomiting: Code(s): R11.2 - Nausea with vomiting, unspecified Status: Resolved Assessment and Plan: Nausea overnight, but improved with Zofran Will advance diet as tolerated to bland diet Zofran as needed (3) GERD (gastroesophageal reflux disease): Code(s): K21.9 - Gastro-esophageal reflux disease without esophagitis Status: Acute Assessment and Plan: Possible etiology behind pain. Will continue PPI therapy, bland diet GI following and appreciate recommendations (4) History of Gary fundoplication: Code(s): Z98.890 - Other specified postprocedural states Status: Acute Assessment and Plan: Hx of hiatal hernia s/p Gary fundoplication. EGD per Dr. Salmeron this hospital stay shows intact fundoplication. GI following (5) Anxiety and depression: Code(s): F41.9 - Anxiety disorder, unspecified; F32.9 - Major depressive disorder, single episode, unspecified Status: Acute Assessment and Plan: pt takes venlafaxine for anxiety and depression. No acute issues at the moment Continue home medication (6) Leukocytosis: Code(s): D72.829 - Elevated white blood cell count, unspecified Status: Acute Assessment and Plan: Leukocytosis of unclear etiology. Improving today to 12.8k. Possibly reactive from n/v/retching? No evidence of infection on exam; no signs/symptoms of infection upon history. Continue to monitor CBC overnight should she stay Monitor (7) Hepatic steatosis: Code(s): K76.0 - Fatty (change of) liver, not elsewhere classified Status: Acute Assessment and Plan: CT abd/pelv w/ contrast read as Areas of low attenuation in segment III of the liver that may be steatosis or infarct. MRI abdomen shows focal steatosis in segment III of the liver correlating with the CT abnormality . LFTs improved/stable from yesterday GI following; appreciate recommendations Monitor LFTs Subjective Date/time seen: 02/05/20 12:02 Interval history: Patient is a 49 yo F with history of anxiety/depression, GERD, history of fundoplication who is here for evaluation for nausea/vomiting and epigastric pain. Patient states she had some nausea last night which was resolved with Zofran. She feels okay today. Occasionally has throbbing pain; epigastric; does not radiate. No n/v today; currently having her lunch - liquid diet. No BMs; passing gas. Denies f/c/s, headaches, dizziness, lightheadedness, cp/palpitations, sob/cough, current n/v/d/c, dysuria, hematuria, cloudy urine, calf pain/swelling. Denies any blood disorders, immunological disorders, cancer, or any hormone therapy. No family history of the above. Review of Systems Review of Systems: All systems reviewed & are unremarkable except as noted in HPI and below Exam Narrative: Exam Narrative: Patient sitting upright in bed having lunch Const: General: cooperative, comfortable, no acute distress, well developed, alert and awake Nutritional Appearance: well nourished Orientation/consciousness: patient orie
[2020-02-05] MEDS: POTASSIUM CHLORIDE 20 MEQ TABLET PO (12:56)
[2020-02-05 14:00] VITALS: BP 115/63; PULSE 116; RESP 15; TEMP 36.3; O2SAT 100
[2020-02-05 22:00] VITALS: BP 131/75; PULSE 69; RESP 12; TEMP 36.9; O2SAT 99
[2020-02-06 04:35] LABS: Basophils Percent Auto 0.3 % (0.2-1.2); Eosinophils Percent Auto 0.3 % (0-4.4); Hematocrit 34.5 % (37.0-47.0); Hemoglobin 11.1 g/dL (12.0-15.0); Immature Granulocyte Absolute 0.04 K/mm3 (0.00-0.031); Immature Granulocyte Percent A 0.4 % (0-0.5); Lymphocytes Absolute Auto 2.13 K/mm3 (0.9-3.2); Lymphocytes Percent Auto 22.3 % (18.3-44.2); Mean Corpuscular HGB Conc 32.2 g/dl (32-36); Mean Corpuscular Hemoglobin 29.8 pg (26-34); Mean Corpuscular Volume 92.7 fl (80-100); Mean Platelet Volume 11.4 fl (7.4-10.4); Monocytes Absolute Auto 1.2 K/mm3 (0.1-0.6); Monocytes Percent Auto 12.3 % (2.6-8.5); Neutrophils Absolute Auto 6.2 K/mm3 (1.3-6.7); Neutrophils Percent Auto 64.4 % (45.5-73.1); Platelet Count Result 225 k/mm3 (150-375); Red Blood Count 3.72 M/mm3 (4.2-5.4); Red Cell Distribution Width 13.3 % (11.5-14.5); White Blood Count 9.6 K/mm3 (4.5-10.0)
[2020-02-06 04:58] LABS: Alanine Aminotransferase 58 U/L (4-35); Albumin Level 3.5 g/dL (3.5-5.1); Alkaline Phosphatase 98 U/L (38-126); Aspartate Amino Transferase 46 U/L (14-36); Bilirubin,Total 0.5 mg/dL (0.2-1.3); Blood Urea Nitrogen 6 mg/dL (7-17); Calcium 8.2 mg/dL (8.4-10.2); Carbon Dioxide 28 mmol/L (22-30); Chloride 104 mmol/L (98-107); Estimated CRCL calculation 81 ml/min; Estimated Glomerular Filt Rate > 60; Glucose 86 mg/dL (65-105); Magnesium 1.9 mg/dL (1.6-2.3); Phosphorus 2.1 mg/dL (2.5-4.5); Potassium 3.4 mmol/L (3.4-5.0); Sodium 135 mmol/L (137-145)
[2020-02-06 06:00] VITALS: BP 120/68; PULSE 76; RESP 12; TEMP 37.1; O2SAT 99
[2020-02-06] MEDS: SODIUM CHLORIDE 0.9% IV 1,000 ML 75 ML IV CONT (07:03)
--- NOTE | 2020-02-06 07:17 | WPDGIPROGNO ---
Progress Note: A&P Additional Plan Patient feeling better. Still some nausea reported. Denies overt abdominal pain. Mild tenderness in the epigastric area described. Physical exam reveals her to be alert. Vital signs are stable. HEENT exam she is anicteric. Lungs are clear. Heart without murmur. Abdomen is soft with minimal epigastric discomfort on palpation. Labs reveal total bilirubin 0.5, AST 46, ALT 58, alk-phos 98. MRI of the liver suggest localized fatty deposit. No evidence of infarct. \ 1. Epigastric pain and nausea. Consistent with acid reflux and dyspepsia. Plan is to keep patient on Protonix. She does have a history of GE reflux status post Gary fundoplication in the past. This appears intact by recent endoscopy. 2. Elevated LFTs. Etiology somewhat unclear. She has a previous cholecystectomy. Fatty liver noted on CAT scan potentially could contribute to this. Suggest follow-up LFTs after discharge. I can see her in the office in 2-3 weeks. Subjective Date/time seen: 02/06/20 07:17 Objective Data Vital Signs Vital Signs: Vital Signs - 24 hr 02/05/20 14:00 02/05/20 22:00 Temperature 36.3 C L 36.9 C Pulse Rate 116 H 69 Respiratory Rate 15 12 Blood Pressure 115/63 131/75 Pulse Oximetry 100 99 Intake/Output Intake/Output: Intake & Output 02/03/20 02/04/20 02/05/20 02/06/20 23:59 23:59 23:59 23:59 Intake Total 2410 2520 2720 1000 Output Total 294 194 2403 Balance 1910 1820 1345 1000 Meds/Results Medications: Active Medications Generic Name Dose Route Start Last Admin Trade Name Freq PRN Reason Stop Dose Admin Acetaminophen 650 mg 02/04/20 07:24 Tylenol Tablet PO Q6H PRN Mild Pain (1-3) or Fever Gabapentin 100 mg 02/03/20 12:56 Neurontin PO TID PRN nerve pain Sodium Chloride 1,000 mls @ 75 mls/hr 02/03/20 06:45 02/06/20 07:03 Normal Saline Iv IV CONT 75 mls/hr .[id number] MERON Administration Midodrine 5 mg 02/03/20 17:00 02/05/20 17:29 Proamatine PO 5 mg BID MERON Administration Ondansetron HCl 4 mg 02/03/20 06:44 02/05/20 03:23 Zofran Inj IV PUSH 4 mg Q4H PRN Administration Nausea Pantoprazole Sodium 40 mg 02/03/20 21:00 02/05/20 21:28 Protonix PO 40 mg Q12HR MERON Administration Venlafaxine HCl 150 mg 02/03/20 09:00 02/05/20 09:56 Effexor Xr PO 150 mg DAILY MERON Administration Radiology Results: ITS Impressions Chest X-Ray 02/03/20 06:29 IMPRESSION: 1. No acute cardiopulmonary disease. Abdomen MRI 02/05/20 11:41 IMPRESSION: 1. Focal steatosis in segment III of the liver correlating with the CT abnormality. 2. Small volume of ascites. Labs Labs: Laboratory Results - last 24 hr 02/05/20 02/05/20 02/06/20 07:29 07:29 04:21 WBC 12.8 H 9.6 RBC 3.78 L 3.72 L Hgb 11.2 L 11.1 L Hct 35.0 L 34.5 L MCV 92.6 92.7 MCH 29.6 29.8 MCHC 32.0 32.2 RDW 13.3 13.3 Plt Count 234 225 MPV 11.7 H 11.4 H Immature Gran % (Auto) 0.5 0.4 Neut % (Auto) 84.1 H 64.4 Lymph % (Auto) 10.4 L 22.3 [place] % (Auto) 4.8 12.3 H Eos % (Auto) 0.0 0.3 Baso % (Auto) 0.2 0.3 Lymph # (Auto) 1.33 2.13 [place] # (Auto) 0.6 1.2 H Eos # (Auto) 0.0 0.0 Baso # (Auto) 0.0 0.0 Abs Immat Gran (auto) 0.07 H 0.04 H Absolute Neuts (auto) 10.8 H 6.2 Absolute Nucleated RBC 0.0 0.0 Nucleated RBC % 0.0 0.0 Sodium 138 Potassium 3.6 Chloride 107 Carbon Dioxide 23 BUN 15 D Creatinine 0.60 L Estim Creat Clear Calc 81 Estimated GFR > 60 Glucose 73 Calcium 8.4 Phosphorus 2.2 L Magnesium 1.9 Total Bilirubin 0.4 Direct Bilirubin 0.0 AST 64 H ALT 67 H Alkaline Phosphatase 120 Total Protein 6.0 L Albumin 3.7 02/06/20 04:21 WBC RBC Hgb Hct MCV MCH MCHC RDW Plt Count MPV Immature Gran % (Auto) Neut % (Auto) Lymph % (Auto) [place] % (Auto) Eos % (Auto)
--- NOTE | 2020-02-06 08:15 | PM.DS ---
DS: Admitting Diagnosis Admitting Diagnosis Admitting Diagnosis: Epigastric pain DS: Discharge Diagnosis Discharge Diagnosis (1) Epigastric abdominal pain: Code(s): R10.13 - Epigastric pain Status: Acute Assessment and Plan: Dr. Salmeron following; appreciate recommendations. Pain possible related to GERD. Pain has improved overnight again. Comfortable with Discharge. EGD per Dr. Salmeron during stay showed intact fundoplication and normal mucosa. MRI abdomen shows focal steatosis in segment III of the liver correlating with the CT abnormality. D/c home F/u with Dr. Salmeron F/u with PCP as needed as well Recommended bland diet (2) Nausea & vomiting: Code(s): R11.2 - Nausea with vomiting, unspecified Status: Resolved Assessment and Plan: Appears to have resolved d/c today f/u with GI (3) GERD (gastroesophageal reflux disease): Code(s): K21.9 - Gastro-esophageal reflux disease without esophagitis Status: Acute Assessment and Plan: Possible etiology behind pain. Will continue PPI therapy, bland diet GI following and appreciate recommendations (4) History of Gary fundoplication: Code(s): Z98.890 - Other specified postprocedural states Status: Acute Assessment and Plan: Hx of hiatal hernia s/p Gary fundoplication. EGD per Dr. Salmeron this hospital stay shows intact fundoplication. GI following (5) Anxiety and depression: Code(s): F41.9 - Anxiety disorder, unspecified; F32.9 - Major depressive disorder, single episode, unspecified Status: Acute Assessment and Plan: pt takes venlafaxine for anxiety and depression. No acute issues at the moment Continue home medication (6) Leukocytosis: Code(s): D72.829 - Elevated white blood cell count, unspecified Status: Acute Assessment and Plan: Leukocytosis of unclear etiology. Appears to resolve today at 9.6k. Possibly reactive from n/v/retching? No evidence of infection on exam; no signs/symptoms of infection upon history. F/u with PCP (7) Hepatic steatosis: Code(s): K76.0 - Fatty (change of) liver, not elsewhere classified Status: Acute Assessment and Plan: CT abd/pelv w/ contrast read as Areas of low attenuation in segment III of the liver that may be steatosis or infarct. MRI abdomen shows focal steatosis in segment III of the liver correlating with the CT abnormality . LFTs improved/stable from yesterday GI f/u after discharge; appreciate recommendations Will do CMP in 1 week DS: Summary Hospital Course Reason for hospitalization: Epigastric pain, N/V evaluation Hospital Course: Patient is a 49 yo F with history of anxiety/depression, celiac disease, diverticulosis, GERD, and history of hiatal hernia s/p Gary fundoplication who presented to the ER on 02/02 with complaints of nausea/vomiting. While in the ED, CT of abd/pelvis with contrast found localized fatty liver versus liver infarction. Patient admitted under this setting. Please see H&P for further details. Presenting VS: Temp Pulse Resp BP Pulse Ox 98.2 F 65 16 132/84 99 02/03/20 06:00 02/03/20 06:00 02/03/20 06:00 02/03/20 06:00 02/03/20 06:00 Presenting Pertinent labs: K 3.1, AST 37, lipase 306. CBC, coag, chemistry, UA otherwise unremarkable Micro: none Imaging: Chest X-Ray 02/03/20 06:29 IMPRESSION: 1. No acute cardiopulmonary disease. CT abd/pelvis with contrast 02/03/20 IMPRESSION: 1. Areas of low attenuation in segment III of the liver that may be steatosis or infarct. Abdomen MRI 02/05/20 11:41 IMPRESSION: 1. Focal steatosis in segment III of the liver correlating with the CT abnormality. 2.
[2020-02-06] MEDS: ACETAMINOPHEN 325 MG TABLET 650 MG PO (08:48)
[2020-02-06] MEDS: POTASSIUM CHLORIDE 20 MEQ TABLET 40 MEQ PO (08:49)
[2020-02-06] MEDS: PANTOPRAZOLE 40 MG TABLET PO (08:50)
[2020-02-06] MEDS: MIDODRINE HCL 2.5 MG TABLET 5 MG PO (08:50)
[2020-02-06] MEDS: VENLAFAXINE HCL XR 75 MG CAP.ER.24H 150 MG PO (08:51)
== END 2020-02-06 10:15 | disposition home or self-care (01) ==
LOC: ANHED 06:50 → ANH2MED 07:48
PROVIDERS: Internal Medicine Gastroenterology; Nurse Practitioner; Physician Assistant; Admitting Provider Family Medicine; Emergency Provider Emergency Medicine; PCP Family Medicine; Visit Provider Internal Medicine
PROC: 0DJ08ZZ Inspection of Upper Intestinal Tract, Via Natural or Artificial Opening Endoscopic (ICD-10-PCS; CPT 43235; principal; 2020-02-03 14:30)
DX: R10.13 Epigastric pain (principal); R11.2 Nausea with vomiting, unspecified; K21.9 Gastro-esophageal reflux disease without esophagitis; Z98.890 Other specified postprocedural states; F41.9 Anxiety disorder, unspecified; F32.9 Major depressive disorder, single episode, unspecified; D72.829 Elevated white blood cell count, unspecified; K76.0 Fatty (change of) liver, not elsewhere classified; K90.0 Celiac disease; K57.90 Diverticulosis of intestine, part unspecified, without perforation or abscess without bleeding; G43.909 Migraine, unspecified, not intractable, without status migrainosus; G62.9 Polyneuropathy, unspecified; Z79.899 Other long term (current) drug therapy; Z87.891 Personal history of nicotine dependence; Z90.49 Acquired absence of other specified parts of digestive tract
CPT/HCPCS: 43235; 36415; 71045; 74177; 74183; 80053; 80069; 80076; 81003; 83605; 83690; 83735; 84484; 85025; 85610; 85730; 93005; 96361; 96372; 96374; 96375; 96376; 99284; 99285; A9270; A9577; C9113; G0378; J0500; J2270; J2405; J2550; J2704; J7030; J7120; Q9967

== ENCOUNTER 2020-02-27 11:07 | Outpatient (CLI) | payer MEDICARE, MEDICAID, SELFPAY ==
[2020-02-27 11:51] LABS: Alanine Aminotransferase 10 U/L (4-35); Albumin Level 4.6 g/dL (3.5-5.1); Alkaline Phosphatase 70 U/L (38-126); Aspartate Amino Transferase 22 U/L (14-36); Bilirubin,Total 0.6 mg/dL (0.2-1.3)
== END 2020-02-27 11:08 | disposition home or self-care (01) ==
LOC: ANHLAB 11:10
PROVIDERS: Visit Provider Physician Assistant
DX: K76.0 Fatty (change of) liver, not elsewhere classified (principal)
CPT/HCPCS: 36415; 80076

== ENCOUNTER 2020-03-02 21:42 | Emergency (ER) | payer MEDICARE, MEDICAID, SELFPAY ==
--- NOTE | ~2020-03-02 | CT_ITS ---
EXAMINATION: CT abdomen pelvis w con DATE: 03/03/2020 01:52 INDICATION: Upper abdominal pain and vomiting TECHNIQUE: Computed tomography (CT) of the abdomen and pelvis was performed with 100 mL Omnipaque-350 intravenous contrast. Automated exposure control and iterative reconstruction technique were employe d. The dose-length product was 234.36 mGy-cm. COMPARISON: Abdomen and pelvis CT dated 02/03/2020 and MRI dated 02/04/2020 FINDINGS: Lung bases are clear. Heart size is normal. No pericardial or pleural effusion. Focal hepatic steatos is at the ligamentum teres. Cholecystectomy clips at the gallbladder fossa. Spleen, pancreas, right k idney and bilateral adrenal glands are normal. 6 mm left renal cyst. Postoperative change of prior Ni ssen fundoplication. Mild wall thickening at the gastric antrum which could be related to underdisten tion or gastritis. Normal appendix. No bowel obstruction. A few sigmoid diverticula without adjacent inflammatory change to suggest diverticulitis. Bladder, anteverted uterus and bilateral adnexa are un remarkable. No free intraperitoneal gas or fluid. No pathologically enlarged abdominal or pelvic lymp hadenopathy. Mild thoracolumbar dextrocurvature with mild to moderate lower lumbar predominant facet osteoarthritis. IMPRESSION: 1. Mild wall thickening at the gastric antrum which could be related to under distention or gastritis . Reviewed, dictated and finalized at location A. IMPRESSION: 1. Mild wall thickening at the gastric antrum which could be related to under d istention or gastritis.
[2020-03-02 21:45] VITALS: BP 132/54; PULSE 84; RESP 18; TEMP 36.7; O2SAT 100
--- NOTE | 2020-03-02 22:25 | ED.ABDPAIN ---
HPI - Abdominal Pain General Chief Complaint: Abdominal Pain Stated Complaint: abd pain, n/v Time Seen by Provider: 03/02/20 21:44 Source: patient Mode of arrival: ambulatory Limitations: no limitations History of Present Illness HPI narrative: This patient is a 49 year old female with history of GERD who presents for evaluation of nausea, vomiting and mid abdominal pain. Patient states 2 weeks ago she was admitted at [facility] for similar symptoms. She was discharged on zofran and pantoprazole. OVer the past 2 days she states her nausea and increased. Tonight starting 1 hour ago she developed vomiting and cramping mid abdominal pain. She also reports 4 episodes of loose stools in past hour. She is out of her antiemetic. She reports being hot and cold but no fever. MD elicited complaint: abdominal pain Onset (ago): hour(s) (1) Pain Consistency: constant Related Data Home Medications Medication Instructions Recorded Confirmed amoxicillin-pot clavulanate 1 tablet PO Q12H 02/03/20 02/03/20 [Augmentin] gabapentin 100 mg PO TID PRN 02/03/20 02/03/20 midodrine 5 mg PO BID 02/03/20 02/03/20 venlafaxine [Effexor XR] 150 mg PO DAILY 02/03/20 02/03/20 Allergies Allergy/AdvReac Type Severity Reaction Status Date / Time prochlorperazine AdvReac Severe Confusion Verified 03/02/20 21:51 azithromycin AdvReac Unknown STOMACH Verified 03/02/20 21:51 UPSET Review of Systems Review of Systems: All systems reviewed & are unremarkable except as noted in HPI and below Constitutional: Constitutional: Reports chills, Denies fever(s) and Denies weakness ENT: Reports dizziness Cardiovascular: Cardiovascular: Denies chest pain Respiratory: Respiratory: Denies cough, Denies dyspnea and Denies wheezing Gastrointestinal: Gastrointestinal: Reports abdominal pain, Reports diarrhea, Reports nausea and Reports vomiting Genitourinary: Genitourinary: Reports no additional female genitourinary complaints [facility] Past Medical History Medical History Anxiety and depression Arthritis Celiac disease Diverticulosis GERD (gastroesophageal reflux disease) Migraine headache Neuropathy Surgical History Surgical History History of delivery History of cholecystectomy History of Gary fundoplication History of tubal ligation Family History Family History Mother Family history of elevated blood lipids Family history of arthritis Sibling Family history of arthritis Other Cerebrovascular accident Family history of cardiovascular disease Hypertension Social History Social History Smoking packs per day: 0.5 Smoking cigarettes per day: 10.0 Years smoked: 10 Smoking pack-years: 5.00 Smoking status: Former smoker Tobacco type: cigarettes Alcohol intake: current Drinks per week: 1 Substance use: current Substance use type: marijuana Last use: 01-02-20 Gender identity (if verbalized by the patient): Female Spiritual care concerns: No Exam Const: General: alert Orientation/consciousness: patient oriented x3 HENMT: Head: normocephalic Face and sinus: face symmetric Mouth: Yes moist mucous membranes abnormal Teeth and gingiva: edentulous Throat: posterior oropharynx normal Eyes: EOM: EOMs intact bilaterally Chest: Chest palpation & inspection: normal inspection of the chest Resp: Effort & Inspection: normal respiratory effort, no retractions and no use of accessory muscles Auscultation: clear to auscultation bilaterally Cardio: Rate: regular rate Rhythm: regular rhythm Heart sounds: no murmurs GI: GI Palp: Yes Soft to palpation, Yes Tenderness to palpation present (GI) (epigastric), No Guarding due to palpation present (GI) and No Rigid due to palpation
[2020-03-02 22:36] LABS: Basophils Percent Auto 0.4 % (0.2-1.2); Eosinophils Absolute Auto 0.1 K/mm3 (0-0.3); Eosinophils Percent Auto 1.4 % (0-4.4); Hematocrit 41.3 % (37.0-47.0); Hemoglobin 13.4 g/dL (12.0-15.0); Immature Granulocyte Absolute 0.03 K/mm3 (0.00-0.031); Immature Granulocyte Percent A 0.3 % (0-0.5); Lymphocytes Percent Auto 23.5 % (18.3-44.2); Mean Corpuscular HGB Conc 32.4 g/dl (32-36); Mean Corpuscular Hemoglobin 30.3 pg (26-34); Mean Corpuscular Volume 93.4 fl (80-100); Mean Platelet Volume 11.4 fl (7.4-10.4); Neutrophils Absolute Auto 5.9 K/mm3 (1.3-6.7); Neutrophils Percent Auto 63.4 % (45.5-73.1); Platelet Count Result 288 k/mm3 (150-375); Red Blood Count 4.42 M/mm3 (4.2-5.4); Red Cell Distribution Width 13.2 % (11.5-14.5); White Blood Count 9.4 K/mm3 (4.5-10.0)
[2020-03-02 22:43] VITALS: BP 127/78; PULSE 86
[2020-03-02] MEDS: PANTOPRAZOLE SODIUM IV 40 MG VIAL IV PUSH (22:43)
[2020-03-02] MEDS: ONDANSETRON INJ 4 MG/2 ML VIAL IV PUSH (22:43)
[2020-03-02 22:45] VITALS: BP 114/80; PULSE 98
[2020-03-02 22:47] VITALS: BP 123/111; PULSE 106
[2020-03-02 22:48] LABS: Alanine Aminotransferase 12 U/L (4-35); Albumin Level 4.9 g/dL (3.5-5.1); Alkaline Phosphatase 83 U/L (38-126); Aspartate Amino Transferase 26 U/L (14-36); Bilirubin,Total 0.1 mg/dL (0.2-1.3); Blood Urea Nitrogen 14 mg/dL (7-17); Calcium 9.3 mg/dL (8.4-10.2); Carbon Dioxide 28 mmol/L (22-30); Chloride 104 mmol/L (98-107); Estimated CRCL calculation 81 ml/min; Estimated Glomerular Filt Rate > 60; Glucose 106 mg/dL (65-105); Lipase 434 U/L (23-300); Potassium 3.6 mmol/L (3.4-5.0); Sodium 140 mmol/L (137-145)
[2020-03-02 22:49] LABS: Add Urine Microscopic? NO; Appearance Urine Clear (Clear); Bilirubin Urine Negative (Negative); Blood Urine Negative (Negative); Color Urine Straw (Yellow); Glucose Urine UA Negative (Negative); Ketones Urine Negative (Negative); Leukocyte Esterase Ur Negative LEU/UL (Negative); Nitrate Urine Negative (Negative); Protein Urine Negative (Negative); RBC Urine 0-2 /hpf (0-2); Specific Grav Ur 1.006 (1.001-1.035); Squamous Epithelial Cell Urine Rare /hpf (Few); Urobilinogen Urine Negative mg/dL (<2.0); WBC Urine 0-3 /hpf
[2020-03-02] MEDS: LACTATED RINGERS 1,000 ML 999 ML IV CONT (22:54)
--- NOTE | 2020-03-02 23:28 | PC.NURSE ---
Assumed care of pt at this time. Report from [facility]
[2020-03-02 23:29] VITALS: BP 124/86; PULSE 81; RESP 15; O2SAT 99
[2020-03-03] VITALS: BP 101/73; PULSE 89; RESP 15; O2SAT 99
[2020-03-03 00:50] VITALS: BP 101/73; PULSE 78; RESP 15; O2SAT 98
[2020-03-03 01:00] VITALS: BP 106/67; PULSE 78; RESP 19; O2SAT 99
[2020-03-03] MEDS: ONDANSETRON INJ 4 MG/2 ML VIAL IV PUSH (01:14)
[2020-03-03 02:00] VITALS: BP 117/70; PULSE 83; RESP 15; O2SAT 99
--- NOTE | 2020-03-03 02:24 | PC.NURSE ---
Signed patient over. Report to KIET Bazzi
[2020-03-03 03:42] VITALS: BP 110/79; PULSE 71; RESP 16; TEMP 36.8; O2SAT 97
== END 2020-03-03 03:45 | disposition home or self-care (01) ==
PROVIDERS: Emergency Provider General Practice; PCP Family Medicine
DX: K21.9 Gastro-esophageal reflux disease without esophagitis (principal); F41.9 Anxiety disorder, unspecified; F32.9 Major depressive disorder, single episode, unspecified; M19.90 Unspecified osteoarthritis, unspecified site; K90.0 Celiac disease; G62.9 Polyneuropathy, unspecified; Z87.891 Personal history of nicotine dependence
CPT/HCPCS: 36415; 74177; 80053; 81003; 81025; 83690; 85025; 96361; 96374; 96375; 96376; 99284; C9113; J0131; J2405; J7120; Q9967

== ENCOUNTER 2020-03-04 08:01 | Emergency (ER) | payer MEDICARE, MEDICAID, SELFPAY ==
[2020-03-04 08:05] VITALS: BP 144/71; PULSE 87; RESP 20; TEMP 36.6; O2SAT 98
--- NOTE | 2020-03-04 08:47 | ED.ABDPAIN ---
HPI - Abdominal Pain General Chief Complaint: Abdominal Pain Stated Complaint: abdominal pain/nausea Time Seen by Provider: 03/04/20 08:18 History of Present Illness HPI narrative: 49 yo female w/ GERD, IBS presents with epigastric pain. She has a long history of this she was hospitalized last month for the same and saw dr. hernandez. She was doing better with bland diet until Thursday when she decided to eat a hot dog. She has had pain and nausea since that time. Related Data Home Medications Medication Instructions Recorded Confirmed amoxicillin-pot clavulanate 1 tablet PO Q12H 02/03/20 02/03/20 [Augmentin] gabapentin 100 mg PO TID PRN 02/03/20 02/03/20 midodrine 5 mg PO BID 02/03/20 02/03/20 venlafaxine [Effexor XR] 150 mg PO DAILY 02/03/20 02/03/20 Allergies Allergy/AdvReac Type Severity Reaction Status Date / Time prochlorperazine AdvReac Severe Confusion Verified 03/04/20 08:55 azithromycin AdvReac Unknown STOMACH Verified 03/04/20 08:55 UPSET Review of Systems Review of Systems: All systems reviewed & are unremarkable except as noted in HPI and below Constitutional: Constitutional: Denies fever(s) Cardiovascular: Cardiovascular: Denies chest pain Respiratory: Respiratory: Denies dyspnea Gastrointestinal: Gastrointestinal: Reports abdominal pain, Reports nausea and Reports vomiting PMFSH Past Medical History Medical History Anxiety and depression Arthritis Celiac disease Diverticulosis GERD (gastroesophageal reflux disease) Migraine headache Neuropathy Surgical History Surgical History History of delivery History of cholecystectomy History of Gary fundoplication History of tubal ligation Family History Family History Mother Family history of elevated blood lipids Family history of arthritis Sibling Family history of arthritis Other Cerebrovascular accident Family history of cardiovascular disease Hypertension Social History Social History Smoking packs per day: 0.5 Smoking cigarettes per day: 10.0 Years smoked: 10 Smoking pack-years: 5.00 Smoking status: Former smoker Tobacco type: cigarettes Alcohol intake: current Drinks per week: 1 Substance use: current Substance use type: marijuana Last use: 01-02-20 Gender identity (if verbalized by the patient): Female Spiritual care concerns: No Exam Const: General: healthy appearing, no acute distress and alert Orientation/consciousness: patient oriented x3 HENMT: Head: normal to inspection Neck: Neck: normal visual inspection and no lymphadenopathy Chest: Chest palpation & inspection: no tenderness Resp: Effort & Inspection: normal respiratory effort Auscultation: clear to auscultation bilaterally, no rales, no rhonchi and no wheezes Cardio: Jugular venous distension: no JVD Rate: regular rate Rhythm: regular rhythm Heart sounds: no murmurs GI: Inspection: non-distended GI Palp: Yes Soft to palpation, Yes Tenderness to palpation present (GI), No Guarding due to palpation present (GI) and No Rebound tenderness present Skin: General skin exam: normal color Neuro: General: patient oriented x3 and moves all extremities Speech: normal speech Extrem: General: no edema Psych: Appearance: well kempt Affect: normal affect Course Vital Signs Vital signs: Vital Signs Temperature 36.6 C 03/04/20 08:05 Pulse Rate 87 03/04/20 08:05 Respiratory Rate 20 03/04/20 08:05 Blood Pressure 144/71 H 03/04/20 08:05 Pulse Oximetry 98 03/04/20 08:05 Temperature 36.9 C 03/04/20 11:21 Pulse Rate 73 03/04/20 11:21 Respiratory Rate 16 03/04/20 11:21 Blood Pressure 118/71 03/04/20 11:21 Pulse Oximetry 99 03/04/20 11:21 MDM - Abdomi
[2020-03-04 09:01] LABS: Basophils Percent Auto 0.3 % (0.2-1.2); Eosinophils Percent Auto 0.5 % (0-4.4); Hematocrit 40.2 % (37.0-47.0); Immature Granulocyte Absolute 0.01 K/mm3 (0.00-0.031); Immature Granulocyte Percent A 0.2 % (0-0.5); Lymphocytes Absolute Auto 1.64 K/mm3 (0.9-3.2); Mean Corpuscular HGB Conc 32.3 g/dl (32-36); Mean Corpuscular Hemoglobin 30.1 pg (26-34); Mean Corpuscular Volume 93.1 fl (80-100); Mean Platelet Volume 11.5 fl (7.4-10.4); Monocytes Absolute Auto 0.5 K/mm3 (0.1-0.6); Monocytes Percent Auto 8.2 % (2.6-8.5); Neutrophils Absolute Auto 3.7 K/mm3 (1.3-6.7); Neutrophils Percent Auto 62.8 % (45.5-73.1); Platelet Count Result 270 k/mm3 (150-375); Red Blood Count 4.32 M/mm3 (4.2-5.4); Red Cell Distribution Width 13.2 % (11.5-14.5); White Blood Count 5.9 K/mm3 (4.5-10.0)
[2020-03-04 09:05] LABS: Add Urine Microscopic? YES; Appearance Urine Clear (Clear); Bacteria Urine Trace /hpf; Bilirubin Urine Negative (Negative); Blood Urine Negative (Negative); Color Urine Yellow (Yellow); Glucose Urine UA Negative (Negative); Ketones Urine 1+ mg/dL (Negative); Leukocyte Esterase Ur Negative LEU/UL (Negative); Mucus Urine Rare /lpf; Nitrate Urine Negative (Negative); Protein Urine Negative (Negative); RBC Urine 0-2 /hpf (0-2); Specific Grav Ur 1.016 (1.001-1.035); Squamous Epithelial Cell Urine Few /hpf (Few); Urobilinogen Urine Negative mg/dL (<2.0); WBC Urine 0-3 /hpf
[2020-03-04 09:12] LABS: Alanine Aminotransferase 12 U/L (4-35); Albumin Level 4.3 g/dL (3.5-5.1); Alkaline Phosphatase 75 U/L (38-126); Aspartate Amino Transferase 23 U/L (14-36); Bilirubin,Total 0.4 mg/dL (0.2-1.3); Blood Urea Nitrogen 11 mg/dL (7-17); Calcium 9.2 mg/dL (8.4-10.2); Carbon Dioxide 25 mmol/L (22-30); Chloride 105 mmol/L (98-107); Estimated CRCL calculation 71 ml/min; Estimated Glomerular Filt Rate > 60; Glucose 104 mg/dL (65-105); Lipase 165 U/L (23-300); Potassium 3.8 mmol/L (3.4-5.0); Sodium 139 mmol/L (137-145)
[2020-03-04] MEDS: SODIUM CHLORIDE 0.9% IV 1,000 ML 999 ML IV CONT (10:09)
[2020-03-04] MEDS: ONDANSETRON INJ 4 MG/2 ML VIAL IV PUSH (10:09)
[2020-03-04] MEDS: DICYCLOMINE HCL INJ 20 MG/2 ML VIAL IM (10:14)
[2020-03-04 11:21] VITALS: BP 118/71; PULSE 73; RESP 16; TEMP 36.9; O2SAT 99
== END 2020-03-04 11:23 | disposition home or self-care (01) ==
PROVIDERS: Emergency Provider Emergency Medicine
DX: R10.84 Generalized abdominal pain (principal); G89.29 Other chronic pain; Z87.891 Personal history of nicotine dependence; F41.9 Anxiety disorder, unspecified; F32.9 Major depressive disorder, single episode, unspecified; K21.9 Gastro-esophageal reflux disease without esophagitis; K57.90 Diverticulosis of intestine, part unspecified, without perforation or abscess without bleeding
CPT/HCPCS: 36415; 80053; 81001; 81025; 83690; 85025; 96361; 96372; 96374; 99284; J0500; J2405; J7030

== ENCOUNTER 2020-03-14 14:40 | Emergency (ER) | payer MEDICARE, MEDICAID, SELFPAY ==
--- NOTE | ~2020-03-14 | XR_ITS ---
XR chest 2V DATE: 03/14/2020 16:28 INDICATION: Twitching in chest. Left upper and lower abdominal pain. TECHNIQUE: PA and lateral views COMPARISON: 02/03/2020 portable AP chest FINDINGS: Normal heart size. No hilar or mediastinal enlargement. No pulmonary infiltrate or consolid ation, pleural effusion or pulmonary vascular congestion or pneumothorax. Bilateral hyperinflation. Surgical clips, right upper quadrant, consistent with cholecystectomy. IMPRESSION: Bilateral hyperinflation Reviewed, dictated and finalized at location A. IMPRESSION: Bilateral hyperinflation
--- NOTE | ~2020-03-14 | CT_ITS ---
EXAMINATION: CT abdomen pelvis w con DATE: 03/14/2020 16:04 INDICATION: Right lower quadrant abdominal pain TECHNIQUE: Computed tomography (CT) of the abdomen and pelvis was performed with 100 cc Omnipaque 350 intravenous contrast. Automated exposure control and iterative reconstruction technique were employe d. Exam dose: 235.19 mGy-cm total exam DLP. COMPARISON: 03/03/2020 CT abdomen pelvis FINDINGS: The included lower lung zones are clear of infiltrate or consolidation or mass lesion. Normal heart size. No pericardial or pleural effusion. Status post cholecystectomy. No bile duct or pancreatic duct dilatation. No hepatic, splenic, pancreatic, and adrenal or suspicious renal space occupying mass lesion is detec zafar. 7 mm mid left renal cyst. No urinary tract calculus or hydroureteronephrosis. The urinary bladde r is unremarkable. The uterus and adnexal areas are unremarkable. Normal caliber of the abdominal aorta. No intraperitoneal or retroperitoneal or pelvic mass lesion or adenopathy or ascites. There is a very prominent amount of fecal material within the left colon including sigmoid and descen ding colon, suggesting constipation. No bowel obstruction is evident. Normal appendix. No bowel wall thickening, pneumatosis or intraperitoneal free air. Included skeletal structures are unremarkable. IMPRESSION: Normal appendix Prominent amount of fecal material in the sigmoid and descending colon suggesting constipation 7 mm left renal cyst Reviewed, dictated and finalized at Location A. Reviewed, dictated and finalized at location A. IMPRESSION: Normal appendix Prominent amount of fecal material in the sigmoid and descending colon suggesti ng constipation 7 mm left renal cyst
--- NOTE | 2020-03-14 14:59 | ED.GENADULT ---
HPI - General Adult General Chief complaint: Abdominal Pain Stated complaint: abd pain Time Seen by Provider: 03/14/20 14:55 Source: patient Mode of arrival: ambulatory Limitations: no limitations History of Present Illness HPI narrative: 50-year-old female patient presents to the [facility] with complaints of lower abdominal pain for the past 2 days that is gotten increasingly worse today. Patient rates her pain at this time 7 out of 10. Patient denies any vomiting or diarrhea. Patient states she actually feels like she might be a little bit constipated. Last bowel movement was this morning. Patient states she noticed a little bright red blood during the bowel movement but thinks she might of also been straining. Patient states that she has had some lower abdominal cramping which is typically a little lower than her normal abdominal pain. Patient states that she does have a history of having a spasmatic colon. Patient states that she does see Dr. Mathur for this. Patient states she has been hospitalized for this before. Patient states home she does take dicyclomine, Gas-X, Zofran and famotidine. Patient also states that she has a history of GERD. Patient denies any chest pain or shortness of breath at this time denies any fevers. Denies any pain with urination. Related Data Home Medications Medication Instructions Recorded Confirmed amoxicillin-pot clavulanate 1 tablet PO Q12H 02/03/20 02/03/20 [Augmentin] gabapentin 100 mg PO TID PRN 02/03/20 02/03/20 midodrine 5 mg PO BID 02/03/20 02/03/20 venlafaxine [Effexor XR] 150 mg PO DAILY 02/03/20 02/03/20 Allergies Allergy/AdvReac Type Severity Reaction Status Date / Time prochlorperazine AdvReac Severe Confusion Verified 03/04/20 08:55 azithromycin AdvReac Unknown STOMACH Verified 03/04/20 08:55 UPSET Review of Systems Review of Systems: Narrative: CONSTITUTIONAL: Denies fever, chills, or sweats. EYES: Denies visual changes, redness, or discharge. ENT: Denies rhinorrhea, congestion, sore throat, or otalgia. CARDIOVASCULAR: Denies chest pain, palpitations, or edema. RESPIRATORY: Denies cough or dyspnea. GASTROINTESTINAL: Positive lower abdominal pain, nausea, denies vomiting, or diarrhea. Positive constipation GENITOURINARY: Denies dysuria or hematuria. SKIN: Denies rash or itching. MUSCULOSKELETAL: Denies back pain, joint pain, or myalgia. NEUROLOGIC: Denies headache, numbness, or weakness. PSYCHIATRIC: Denies anxiety or depression. [facility] Past Medical History Medical History (Updated 03/14/20 @ 17:21 by ERUM Humphrey) Anxiety and depression Arthritis Atrial fibrillation Celiac disease Diverticulosis GERD (gastroesophageal reflux disease) Migraine headache Neuropathy Surgical History Surgical History History of delivery History of cholecystectomy History of Gary fundoplication History of tubal ligation Family History Family History Mother Family history of elevated blood lipids Family history of arthritis Sibling Family history of arthritis Other Cerebrovascular accident Family history of cardiovascular disease Hypertension Social History Social History Smoking packs per day: 0.5 Smoking cigarettes per day: 10.0 Years smoked: 10 Smoking pack-years: 5.00 Smoking status: Former smoker Tobacco type: cigarettes Alcohol intake: current Drinks per week: 1 Substance use: current Substance use type: marijuana Last use: 01-02-20 Gender identity (if verbalized by the patient): Female Spiritual care concerns: No Comments At the time of my signature I agree with nursing past medical history, surgical, social, and family history. There is no relevant family history pertinent to the presenting complaint. Exam Narrative: Exam Narrativ
--- NOTE | 2020-03-14 15:08 | ECG_ITS ---
Measurements Intervals [place] Rate: 68 P: [place]: 0 QRS: 64 QRSD: 73 T: 62 QT: 370 QTc: 395 Interpretive Statements SINUS RHYTHM FREQUENT ATRIAL PREMATURE COMPLEXES BASELINE ARTIFACT- V5-V6 ABNORMAL ECG Electronically Signed On 03-14-2020 15:45:23 CDT by Cabrera Moya D.O.
[2020-03-14 15:13] LABS: Basophils Percent Auto 0.4 % (0.2-1.2); Eosinophils Absolute Auto 0.1 K/mm3 (0-0.3); Eosinophils Percent Auto 0.8 % (0-4.4); Hemoglobin 13.9 g/dL (12.0-15.0); Immature Granulocyte Absolute 0.02 K/mm3 (0.00-0.031); Immature Granulocyte Percent A 0.3 % (0-0.5); Lymphocytes Absolute Auto 1.57 K/mm3 (0.9-3.2); Lymphocytes Percent Auto 21.6 % (18.3-44.2); Mean Corpuscular HGB Conc 33.1 g/dl (32-36); Mean Corpuscular Hemoglobin 30.5 pg (26-34); Mean Corpuscular Volume 92.3 fl (80-100); Monocytes Absolute Auto 0.8 K/mm3 (0.1-0.6); Monocytes Percent Auto 11.4 % (2.6-8.5); Neutrophils Absolute Auto 4.8 K/mm3 (1.3-6.7); Neutrophils Percent Auto 65.5 % (45.5-73.1); Platelet Count Result 294 k/mm3 (150-375); Red Blood Count 4.55 M/mm3 (4.2-5.4); Red Cell Distribution Width 13.3 % (11.5-14.5); White Blood Count 7.3 K/mm3 (4.5-10.0)
[2020-03-14 15:28] LABS: Alanine Aminotransferase 12 U/L (4-35); Albumin Level 5.1 g/dL (3.5-5.1); Alkaline Phosphatase 79 U/L (38-126); Aspartate Amino Transferase 28 U/L (14-36); Bilirubin,Total 0.4 mg/dL (0.2-1.3); Blood Urea Nitrogen 13 mg/dL (7-17); Calcium 9.9 mg/dL (8.4-10.2); Carbon Dioxide 28 mmol/L (22-30); Chloride 101 mmol/L (98-107); Estimated CRCL calculation 62 ml/min; Estimated Glomerular Filt Rate > 60; Glucose 110 mg/dL (65-105); Lipase 254 U/L (23-300); Potassium 3.5 mmol/L (3.4-5.0); Sodium 139 mmol/L (137-145)
[2020-03-14 15:37] LABS: Add Urine Microscopic? NO; Appearance Urine Clear (Clear); Bilirubin Urine Negative (Negative); Blood Urine Negative (Negative); Color Urine Yellow (Yellow); Glucose Urine UA Negative (Negative); Ketones Urine Negative (Negative); Leukocyte Esterase Ur Negative LEU/UL (Negative); Nitrate Urine Negative (Negative); Protein Urine Negative (Negative); Specific Grav Ur 1.013 (1.001-1.035); Urobilinogen Urine Negative mg/dL (<2.0)
[2020-03-14] MEDS: ONDANSETRON INJ 4 MG/2 ML VIAL IV PUSH (15:42)
[2020-03-14] MEDS: SODIUM CHLORIDE 0.9% IV 1,000 ML 999 ML IV CONT (15:42)
[2020-03-14 16:30] VITALS: PULSE 72; RESP 20; O2SAT 99
[2020-03-14 17:24] LABS: Troponin I < 0.012 ng/mL (0.000-0.034)
[2020-03-14 17:27] LABS: D Dimer 0.27 ug/mL (<0.48)
[2020-03-14 17:35] VITALS: BP 119/80; PULSE 71; RESP 20; O2SAT 99
== END 2020-03-14 17:39 | disposition home or self-care (01) ==
PROVIDERS: Emergency Medicine; Emergency Provider Nurse Practitioner Family
DX: K59.00 Constipation, unspecified (principal); K21.9 Gastro-esophageal reflux disease without esophagitis; M19.90 Unspecified osteoarthritis, unspecified site; I48.91 Unspecified atrial fibrillation; K90.0 Celiac disease; G62.9 Polyneuropathy, unspecified; Z87.891 Personal history of nicotine dependence; I49.1 Atrial premature depolarization
CPT/HCPCS: 36415; 71046; 74177; 80053; 81003; 81025; 83690; 84484; 85025; 85380; 93005; 96361; 96374; 96375; 99284; J0131; J2405; J7030; Q9967

== ENCOUNTER 2020-04-01 05:16 | Emergency (ER) | payer MEDICARE, MEDICAID, SELFPAY ==
--- NOTE | ~2020-04-01 | XR_ITS ---
EXAMINATION: XR abdomen obstructive series EXAM DATE: 04/01/2020 06:11 INDICATION: Abdominal pain. TECHNIQUE: Frontal upright projection of the upper abdomen, frontal projection of the lower abdomen f or interpretation. There is no prior study for comparison. Correlation was made with CT abdomen pelv is 03/14/2020. FINDINGS: There is moderate amount of colonic stool and gas. No small bowel dilation, nonobstructiv e bowel gas pattern. There are no suspicious calcifications identified. There is no organomegaly suspected. The bones are unremarkable. There are cholecystectomy clips. There is no free intraper itoneal air. The lung bases are clear. IMPRESSION: Unremarkable abdomen x-ray exam. Reviewed, dictated and finalized at location A.
[2020-04-01 05:18] VITALS: BP 127/83; PULSE 92; RESP 18; TEMP 36.8; O2SAT 98
[2020-04-01 05:42] LABS: Basophils Percent Auto 0.3 % (0.2-1.2); Eosinophils Absolute Auto 0.1 K/mm3 (0-0.3); Eosinophils Percent Auto 0.9 % (0-4.4); Hematocrit 41.1 % (37.0-47.0); Hemoglobin 13.2 g/dL (12.0-15.0); Immature Granulocyte Absolute 0.03 K/mm3 (0.00-0.031); Immature Granulocyte Percent A 0.3 % (0-0.5); Lymphocytes Absolute Auto 1.81 K/mm3 (0.9-3.2); Lymphocytes Percent Auto 21.1 % (18.3-44.2); Mean Corpuscular HGB Conc 32.1 g/dl (32-36); Mean Corpuscular Volume 93.4 fl (80-100); Mean Platelet Volume 10.7 fl (7.4-10.4); Monocytes Absolute Auto 0.7 K/mm3 (0.1-0.6); Monocytes Percent Auto 8.3 % (2.6-8.5); Neutrophils Absolute Auto 5.9 K/mm3 (1.3-6.7); Neutrophils Percent Auto 69.1 % (45.5-73.1); Platelet Count Result 342 k/mm3 (150-375); Red Cell Distribution Width 13.4 % (11.5-14.5); White Blood Count 8.6 K/mm3 (4.5-10.0)
--- NOTE | 2020-04-01 05:43 | ED.ABDPAIN ---
HPI - Abdominal Pain General Chief Complaint: Abdominal Pain <DO Brie Hoffman Last Filed: 04/01/20 05:45> Stated Complaint: ABD PAIN <Rip Anderson DO - Last Filed: 04/01/20 05:45> Time Seen by Provider: 04/01/20 05:24 <DO Brie Hoffman Last Filed: 04/01/20 05:45> Source: RN notes reviewed <DO Brie Hoffman Last Filed: 04/01/20 05:45> History of Present Illness HPI narrative: Patient presents emergency department from home for abdominal pain. Patient states that she has been having abdominal pain for the last 2 months worse over the past 2 days. States is described as cramping diffusely with associated nausea. The patient is on Zofran, dicyclomine, and Protonix at home which she has been taking all of as well as occasional Gas-X. She states she has been feeling constipated she denies any fevers or chills chest pain shortness of breath or any other symptoms. Patient states she is being evaluated by Dr. Salmeron as an outpatient is scheduled for colonoscopy this week <DO Brie Hoffman Last Filed: 04/01/20 05:45> Related Data Home Medications: Home Medications Medication Instructions Recorded Confirmed amoxicillin-pot clavulanate 1 tablet PO Q12H 02/03/20 02/03/20 [Augmentin] gabapentin 100 mg PO TID PRN 02/03/20 03/27/20 midodrine 5 mg PO BID 02/03/20 03/27/20 venlafaxine [Effexor XR] 150 mg PO DAILY 02/03/20 02/03/20 buspirone 5 mg PO BID 03/27/20 03/27/20 dicyclomine 20 mg PO QID 03/27/20 03/27/20 <DO Brie Hoffman Last Filed: 04/01/20 05:45> Allergies/Adverse Reactions: Allergies Allergy/AdvReac Type Severity Reaction Status Date / Time prochlorperazine AdvReac Severe Confusion Verified 03/27/20 14:27 azithromycin AdvReac Unknown STOMACH Verified 03/27/20 14:27 UPSET <Rip Anderson DO - Last Filed: 04/01/20 05:45> Review of Systems Review of Systems: Narrative: Gen.: Denies fevers or chills ENT: Denies congestion Respiratory: Denies shortness of breath or cough CV: Denies chest pain or palpitations GI: See HPI denies burning, urgency, frequency or hematuria Musculoskeletal: Denies back pain or muscle pain Neuro: Denies numbness, tingling, weakness or focal weakness Skin: Denies rash Except as documented, all other systems reviewed and negative <Rip Anderson DO - Last Filed: 04/01/20 05:45> [facility] Past Medical History Medical History: Medical History Anxiety and depression Arthritis Atrial fibrillation Celiac disease Diverticulosis GERD (gastroesophageal reflux disease) Migraine headache Neuropathy <Rip Anderson DO - Last Filed: 04/01/20 05:45> Surgical History Surgical History: Surgical History History of delivery History of cholecystectomy History of Gary fundoplication History of tubal ligation <DO Brie Hoffman Last Filed: 04/01/20 05:45> Social History Social History: Social History Smoking packs per day: 0.5 Smoking cigarettes per day: 10.0 Years smoked: 10 Smoking pack-years: 5.00 Smoking status: Former smoker Tobacco type: cigarettes Alcohol intake: current Drinks per week: 1 Substance use: current Substance use type: marijuana Last use: 01-02-20 Gender identity (if verbalized by the patient): Female Spiritual care concerns: No <DO Brie Hoffman Last Filed: 04/01/20 05:45> Exam Narrative: Exam Narrative: APPEARANCE: No acute distress, nontoxic, resting in bed HEENT: Normocephalic, atraumatic, OMM RESPIRATORY: No respiratory distress, clear to auscultation bilaterally with no rhonchi wheezing or rales CARDIOVASCULAR: RRR s murmur ABDOMINAL: Soft, nondistended, diffusely tender to palpation, no rebound or guard MUSCULOSKELETAl: Moves all extremit
[2020-04-01 05:44] LABS: Add Urine Microscopic? NO; Appearance Urine Clear (Clear); Bilirubin Urine Negative (Negative); Blood Urine Negative (Negative); Color Urine Colorless (Yellow); Glucose Urine UA Negative (Negative); Ketones Urine Negative (Negative); Leukocyte Esterase Ur Negative LEU/UL (Negative); Nitrate Urine Negative (Negative); Protein Urine Negative (Negative); Specific Grav Ur 1.005 (1.001-1.035); Urobilinogen Urine Negative mg/dL (<2.0)
[2020-04-01 05:53] LABS: Alanine Aminotransferase 23 U/L (4-35); Albumin Level 4.9 g/dL (3.5-5.1); Alkaline Phosphatase 78 U/L (38-126); Anion Gap 10.5 mmol/L (7-16); Aspartate Amino Transferase 32 U/L (14-36); Bilirubin,Total 0.3 mg/dL (0.2-1.3); Blood Urea Nitrogen 13 mg/dL (7-17); Calcium 9.4 mg/dL (8.4-10.2); Carbon Dioxide 32 mmol/L (22-30); Chloride 102 mmol/L (98-107); Estimated Glomerular Filt Rate > 60; Glucose 114 mg/dL (65-105); Lipase 214 U/L (23-300); Potassium 3.5 mmol/L (3.4-5.0); Sodium 141 mmol/L (137-145)
[2020-04-01] MEDS: ONDANSETRON INJ 4 MG/2 ML VIAL IV PUSH (06:51)
[2020-04-01] MEDS: SODIUM CHLORIDE 0.9% IV 1,000 ML 999 ML IV CONT (06:51)
[2020-04-01 06:52] VITALS: BP 115/70; PULSE 62; RESP 18; O2SAT 99
--- NOTE | 2020-04-01 07:12 | PC.NURSE ---
Assumed care of pt, pt is alert and upright on stretcher, at bedside, discussed POC, lights dimmed and pt given blanket. Fluids are infusing. VSS.
[2020-04-01 08:00] VITALS: BP 108/68; PULSE 76; RESP 16; O2SAT 100
[2020-04-01 08:20] VITALS: BP 125/71; PULSE 77; RESP 20; O2SAT 99
== END 2020-04-01 08:21 | disposition home or self-care (01) ==
PROVIDERS: Emergency Medicine; Emergency Provider Emergency Medicine
DX: R10.84 Generalized abdominal pain (principal); F41.9 Anxiety disorder, unspecified; F32.9 Major depressive disorder, single episode, unspecified; I48.91 Unspecified atrial fibrillation; K90.0 Celiac disease; K21.9 Gastro-esophageal reflux disease without esophagitis; G62.9 Polyneuropathy, unspecified
CPT/HCPCS: 36415; 74019; 80053; 81003; 81025; 83690; 85025; 96361; 96374; 96375; 99284; A9270; J0131; J2405; J7030

== ENCOUNTER 2020-04-02 01:25 | Outpatient (CLI) | payer MEDICARE, MEDICAID, SELFPAY ==
[2020-04-02 16:16] LABS: SARS-CoV-2 RNA PCR Negative
== END 2020-04-02 01:26 | disposition home or self-care (01) ==
LOC: ANHCOVIDDT 01:27
PROVIDERS: Visit Provider Internal Medicine Gastroenterology
DX: Z01.812 Encounter for preprocedural laboratory examination (principal); Z11.59 Encounter for screening for other viral diseases
CPT/HCPCS: 87635; C9803; U0003

== ENCOUNTER 2020-04-04 00:56 | Day surgery (SDC) | payer MEDICARE, MEDICAID, SELFPAY ==
[2020-03-27 14:30] VITALS: BMI 21.4
[2020-04-04 06:19] VITALS: BP 114/56; PULSE 70; RESP 18; TEMP 36.9; O2SAT 100
[2020-04-04] MEDS: LACTATED RINGERS 1,000 ML 150 ML IV CONT (06:34)
--- NOTE | 2020-04-04 07:20 | WPDANESEPPF ---
Anes - Initial Pre Proc Eval Procedure: Operation Date: 04/04/20 07:30 Proposed Procedures p Colonoscopy - Alverto Salmeron MD Date/Time: 04/04/20 07:20 Surgeon: Alverto Salmeron MD Pre Op Diagnosis: Rectal Bleeding Patient Data Age: 50 Gender: F Height: 5 ft 4 in Weight: 57.3 kg Last Vital Signs Temp 98.5 F 04/04/20 06:19 Pulse 70 04/04/20 06:19 Resp 18 04/04/20 06:19 BP 114/56 L 04/04/20 06:19 Pulse Ox 100 04/04/20 06:19 Allergies Allergy/AdvReac Type Severity Reaction Status Date / Time prochlorperazine AdvReac Severe Confusion Verified 04/04/20 06:16 azithromycin AdvReac Unknown STOMACH Verified 04/04/20 06:16 UPSET Home Medications Medication Instructions Recorded Confirmed Type gabapentin 100 mg PO TID PRN 02/03/20 03/27/20 History midodrine 5 mg PO BID 02/03/20 03/27/20 History venlafaxine [Effexor XR] 150 mg PO DAILY 02/03/20 02/03/20 History pantoprazole 40 mg PO Q12HR #60 tablet 02/06/20 03/27/20 Rx ondansetron HCl [Zofran] 4 mg PO Q6H PRN #20 tablet 03/03/20 03/27/20 Rx buspirone 5 mg PO BID 03/27/20 03/27/20 History dicyclomine 20 mg PO QID 03/27/20 03/27/20 History Patient hx anesthesia problems: none Family hx anesthesia problems: none PMFSH Surgical History Surgical History History of delivery History of cholecystectomy History of Gary fundoplication History of tubal ligation Social History Social History Smoking packs per day: 0.5 Smoking cigarettes per day: 10.0 Years smoked: 10 Smoking pack-years: 5.00 Smoking status: Former smoker Tobacco type: cigarettes Alcohol intake: current Drinks per week: 1 Substance use: current Substance use type: marijuana Last use: 5-4-20 Gender identity (if verbalized by the patient): Female Sexual Orientation (if Verbalized by the Patient): Straight or Heterosexual Spiritual care concerns: No Anes - Eval Final PreProcedure Day of Procedure 04/04/20 07:20 Patient weight: normal Heart: irregular rhythm Lungs: clear to auscultation Airway: Mallampati scale class II Neurological: alert and oriented Last oral intake: >/= 8 hours ASA classification: III Emergent: no Anesthetic plan: proceed Anesthesia type and monitoring: general GIVS and standard monitoring Informed Consent: The patient's anesthetic plan and its attendant risks and benefits were discussed with the patient/family/POA. Questions were solicited and answers provided to the satisfaction of the patient/family/POA.
--- NOTE | 2020-04-04 07:58 | WPDGICN ---
Assessment and Plan Assessment and plan (1) Rectal bleeding: Code(s): K62.5 - Hemorrhage of anus and rectum Status: Acute Assessment and Plan: Patient with long history of irritable bowel syndrome now with rectal bleeding. Plan is to evaluate with colonoscopy. Plan to continue high fiber supplementations. Supplement this with Kaopectate or milk a magnesia at minimal dosing if at all possible to control symptoms. Further recommendations will be given after colonoscopy. (2) IBS (irritable bowel syndrome): Code(s): K58.9 - Irritable bowel syndrome without diarrhea Status: Acute (3) GERD (gastroesophageal reflux disease): Code(s): K21.9 - Gastro-esophageal reflux disease without esophagitis Status: Acute (4) History of Gary fundoplication: Code(s): Z98.890 - Other specified postprocedural states Status: Acute GI Consult Note Consult date/time: 04/04/20 07:58 HPI: Sarahy Gill is a 50 year old female seen in evaluation at the request of Bernabe Vieira.Patient reports recurrent abdominal pain. She has notice bright red blood per rectum sometimes described as maroon stool. She frequently complains of constipation treated with MiraLax. Occasionally will have diarrhea that she describes as severe. The past has been felt to have IBS. Past medical history also significant for GERD status post fundoplication. Current medications include FiberCon and pantoprazole. Recently advised to tried Kaopectate for loose stools. Review of Systems Review of Systems: All systems reviewed & are unremarkable except as noted in HPI and below PMFSH Past Medical History Medical History Anxiety and depression Arthritis Atrial fibrillation Celiac disease Diverticulosis GERD (gastroesophageal reflux disease) Migraine headache Neuropathy Surgical History Surgical History History of delivery History of cholecystectomy History of Gary fundoplication History of tubal ligation Family History Family History Mother Family history of elevated blood lipids Family history of arthritis Sibling Family history of arthritis Other Cerebrovascular accident Family history of cardiovascular disease Hypertension Social History Social History Smoking packs per day: 0.5 Smoking cigarettes per day: 10.0 Years smoked: 10 Smoking pack-years: 5.00 Smoking status: Former smoker Tobacco type: cigarettes Alcohol intake: current Drinks per week: 1 Substance use: current Substance use type: marijuana Last use: 01-02-20 Gender identity (if verbalized by the patient): Female Sexual Orientation (if Verbalized by the Patient): Straight or Heterosexual Spiritual care concerns: No Meds Home Medications and Allergies Home Medications Medication Instructions Recorded Confirmed Type gabapentin 100 mg PO TID PRN 02/03/20 03/27/20 History midodrine 5 mg PO BID 02/03/20 03/27/20 History venlafaxine [Effexor XR] 150 mg PO DAILY 02/03/20 02/03/20 History pantoprazole 40 mg PO Q12HR #60 tablet 02/06/20 03/27/20 Rx ondansetron HCl [Zofran] 4 mg PO Q6H PRN #20 tablet 03/03/20 03/27/20 Rx buspirone 5 mg PO BID 03/27/20 03/27/20 History dicyclomine 20 mg PO QID 03/27/20 03/27/20 History Allergies Allergy/AdvReac Type Severity Reaction Status Date / Time prochlorperazine AdvReac Severe Confusion Verified 04/04/20 06:16 azithromycin AdvReac Unknown STOMACH Verified 04/04/20 06:16 UPSET Vital Signs Vital Signs - 24 hr 04/04/20 06:19 Temperature 98.5 F Pulse Rate 70 Respiratory Rate 18 Blood Pressure 114/56 L Pulse Oximetry 100 Exam Narrative: Exam Narrative: Physical exam reveals patient to be alert. Vital signs stable. H
[2020-04-04 07:59] VITALS: BP 87/48; PULSE 98; RESP 27; O2SAT 98
[2020-04-04 08:09] VITALS: BP 96/61; PULSE 75; RESP 22; O2SAT 98
[2020-04-04 08:19] VITALS: BP 99/62; PULSE 64; RESP 16; O2SAT 100
== END 2020-04-04 08:32 | disposition home or self-care (01) ==
PROVIDERS: Visit Provider Internal Medicine Gastroenterology
PROC: 0DJD8ZZ Inspection of Lower Intestinal Tract, Via Natural or Artificial Opening Endoscopic (ICD-10-PCS; CPT 45378; principal; 2020-04-04 07:30)
DX: Z12.11 Encounter for screening for malignant neoplasm of colon (principal); K62.5 Hemorrhage of anus and rectum; D12.4 Benign neoplasm of descending colon; D12.5 Benign neoplasm of sigmoid colon; K64.8 Other hemorrhoids; Z87.891 Personal history of nicotine dependence; F12.90 Cannabis use, unspecified, uncomplicated
CPT/HCPCS: 45385; 87635; 88305; C9803; J2704; J7120; U0003

== ENCOUNTER 2020-04-17 07:27 | Emergency (ER) | payer MEDICARE, MEDICAID, SELFPAY ==
[2020-04-17] VITALS (9 sets, daily range): BP systolic 107–121; BP diastolic 69–87; PULSE 70–76; RESP 18; TEMP 36.9; O2SAT 89–100
--- NOTE | 2020-04-17 07:37 | ECG_ITS ---
Measurements Intervals [place] Rate: 80 P: 42 IA: 129 QRS: 63 QRSD: 78 T: 61 QT: 367 QTc: 425 Interpretive Statements SINUS RHYTHM WITH SINUS ARRHYTHMIA EARLY PRECORDIAL R/S TRANSITION BASELINE ARTIFACT- II, III, AVF BORDERLINE ECG Electronically Signed On 04-17-2020 7:58:16 CDT by Cabrera Moya D.O.
--- NOTE | 2020-04-17 07:39 | ED.ABDPAIN ---
HPI - Abdominal Pain General Chief Complaint: Abdominal Pain Stated Complaint: abd pain Time Seen by Provider: 04/17/20 07:31 Source: patient and family Mode of arrival: ambulatory Limitations: no limitations History of Present Illness HPI narrative: Patient presents with her for epigastric pain. She has this frequently and is followed by Dr. Salmeron. She tried 1 of her irritable bowel medications, without improvement. She gauges it at 7 out of 10. She has been diagnosed with gastritis, increased pancreatic test, and fatty liver. She has had 3 or 4 CAT scans in the last couple months. She has mucousy diarrhea, without blood. She has nausea without vomiting. She has unexplained weight loss. She says that she has a heart condition, she says she has A. fib and low blood pressure. She does not smoke, drink, or do drugs. She does not work outside the home. She has a surgical history of cholecystectomy, and hiatal hernia repair. MD elicited complaint: abdominal pain Pertinent past history: gastritis and other (Fatty liver and elevated lipase) Pain Consistency: constant Location: epigastric Severity: moderate Pain scale (0-10): 7 Related Data Home Medications Medication Instructions Recorded Confirmed gabapentin 100 mg PO TID PRN 02/03/20 03/27/20 midodrine 5 mg PO BID 02/03/20 03/27/20 venlafaxine [Effexor XR] 150 mg PO DAILY 02/03/20 02/03/20 buspirone 5 mg PO BID 03/27/20 03/27/20 dicyclomine 20 mg PO QID 03/27/20 03/27/20 Allergies Allergy/AdvReac Type Severity Reaction Status Date / Time prochlorperazine AdvReac Severe Confusion Verified 04/04/20 06:16 metoclopramide [From Reglan] AdvReac Intermediate anxiety Verified 04/17/20 08:57 azithromycin AdvReac Unknown STOMACH Verified 04/04/20 06:16 UPSET Review of Systems Review of Systems: Narrative: CONSTITUTIONAL: Denies fever, chills, or sweats. She has had recent weight loss. EYES: Denies visual changes, redness, or discharge. ENT: Denies rhinorrhea, congestion, sore throat, or otalgia. CARDIOVASCULAR: Denies chest pain, palpitations, or edema. RESPIRATORY: Denies cough or dyspnea. GASTROINTESTINAL: She had abdominal pain, and nausea, but not vomiting. GENITOURINARY: Denies dysuria or hematuria. SKIN: Denies rash or itching. MUSCULOSKELETAL: Denies back pain, joint pain, or myalgia. NEUROLOGIC: Denies headache, numbness, or weakness. [facility] Past Medical History Medical History Anxiety and depression Arthritis Atrial fibrillation Celiac disease Diverticulosis GERD (gastroesophageal reflux disease) Migraine headache Neuropathy Surgical History Surgical History History of delivery History of cholecystectomy History of Gary fundoplication History of tubal ligation Social History Social History Smoking packs per day: 0.5 Smoking cigarettes per day: 10.0 Years smoked: 10 Smoking pack-years: 5.00 Smoking status: Former smoker Tobacco type: cigarettes Alcohol intake: current Drinks per week: 1 Substance use: current Substance use type: marijuana Last use: 01-02-20 Gender identity (if verbalized by the patient): Female Spiritual care concerns: No Exam Narrative: Exam Narrative: GENERAL: Very thin. Katelyn tattoo on the right calf. HEAD: Normocephalic, atraumatic. EYES: PERRLA and EOMI. ENT: Nares clear, no rhinorrhea or epistaxis. Mucous membranes moist. NECK: Supple. CHEST: Clear to auscultation. No respiratory distress. HEART: Regular rate and rhythm. No murmur heard. Normal peripheral pulses. ABDOMEN: Soft, nontender, nondistended, normal active bowel sounds. EXTREMITIES: Normal range of motion. No edema. SKIN: Warm, dry, no rash. NEURO: No focal deficits. Alert and oriented x3. PSYCH: Flat affect. Course Reevaluation(s) Reevaluation #1: Went
[2020-04-17 07:51] LABS: Basophils Percent Auto 0.5 % (0.2-1.2); Eosinophils Absolute Auto 0.1 K/mm3 (0-0.3); Eosinophils Percent Auto 1.3 % (0-4.4); Hematocrit 39.7 % (37.0-47.0); Hemoglobin 13.1 g/dL (12.0-15.0); Immature Granulocyte Absolute 0.04 K/mm3 (0.00-0.031); Immature Granulocyte Percent A 0.5 % (0-0.5); Lymphocytes Absolute Auto 1.83 K/mm3 (0.9-3.2); Lymphocytes Percent Auto 20.9 % (18.3-44.2); Mean Corpuscular Hemoglobin 30.3 pg (26-34); Mean Corpuscular Volume 91.9 fl (80-100); Mean Platelet Volume 10.8 fl (7.4-10.4); Monocytes Absolute Auto 0.7 K/mm3 (0.1-0.6); Monocytes Percent Auto 8.2 % (2.6-8.5); Neutrophils Percent Auto 68.6 % (45.5-73.1); Platelet Count Result 345 k/mm3 (150-375); Red Blood Count 4.32 M/mm3 (4.2-5.4); Red Cell Distribution Width 13.2 % (11.5-14.5); White Blood Count 8.8 K/mm3 (4.5-10.0)
[2020-04-17] MEDS: SODIUM CHLORIDE 0.9% IV 1,000 ML 999 ML IV CONT (07:56)
[2020-04-17] MEDS: ONDANSETRON INJ 4 MG/2 ML VIAL IV PUSH (07:57)
[2020-04-17] MEDS: BELLADONNA ALK/PHENOB ELIX 10 ML, MAG HYDROX/ALUMINUM HYD/SIMETH 30 ML, LIDOCAINE HCL 2... PO (07:58)
[2020-04-17] MEDS: FAMOTIDINE 20 MG/2 ML VIAL IV PUSH (07:58)
[2020-04-17] MEDS: MORPHINE SULFATE 2 MG/ML INJ IV PUSH (07:59)
[2020-04-17 08:06] LABS: Alanine Aminotransferase 22 U/L (4-35); Alkaline Phosphatase 66 U/L (38-126); Anion Gap 9 mmol/L (8-16); Aspartate Amino Transferase 37 U/L (14-36); Bilirubin,Total 0.6 mg/dL (0.2-1.3); Blood Urea Nitrogen 12 mg/dL (7-17); Calcium 9.8 mg/dL (8.4-10.2); Carbon Dioxide 27 mmol/L (22-30); Chloride 104 mmol/L (98-107); Estimated Glomerular Filt Rate > 60; Glucose 110 mg/dL (65-105); Lipase 194 U/L (23-300); Potassium 4.1 mmol/L (3.4-5.0); Sodium 140 mmol/L (137-145)
[2020-04-17 08:12] LABS: Add Urine Microscopic? NO; Appearance Urine Clear (Clear); Bilirubin Urine Negative (Negative); Blood Urine Negative (Negative); Color Urine Straw (Yellow); Glucose Urine UA Negative (Negative); Ketones Urine Negative (Negative); Leukocyte Esterase Ur Negative LEU/UL (Negative); Nitrate Urine Negative (Negative); Protein Urine Negative (Negative); Urobilinogen Urine Negative mg/dL (<2.0)
[2020-04-17 08:18] LABS: NT Pro B Type Natriuretic Pept 38 PG/ML (5-100); Troponin I 0.016 ng/mL (0.000-0.034)
[2020-04-17] MEDS: METOCLOPRAMIDE HCL INJ 10 MG/2 ML VIAL IV PUSH (08:43)
--- NOTE | 2020-04-17 09:00 | PC.NURSE ---
Called to room, pt states I'm having problems with the reglan . States feels jittery all over. Dr. Grimes at bedside, orders received.
--- NOTE | 2020-04-17 09:23 | PC.NURSE ---
In to d/c patient. States she's had a sudden return of sharp upper abdominal pain. Pt also requesting something for nausea for at home. Dr. Grimes made aware and back in to speak with the patient.
--- NOTE | 2020-04-17 09:24 | PC.NURSE ---
Plan to observe for the next 1/2 hour and watch pain.
--- NOTE | 2020-04-17 09:59 | PC.NURSE ---
Pt states her pain is gone but remains nauseated. States is ready for d/c.
== END 2020-04-17 10:04 | disposition home or self-care (01) ==
PROVIDERS: Emergency Provider Emergency Medicine
DX: R10.13 Epigastric pain (principal); T50.905A Adverse effect of unspecified drugs, medicaments and biological substances, initial encounter; Z87.891 Personal history of nicotine dependence; F41.9 Anxiety disorder, unspecified; F32.9 Major depressive disorder, single episode, unspecified; M19.90 Unspecified osteoarthritis, unspecified site; I48.91 Unspecified atrial fibrillation; K21.9 Gastro-esophageal reflux disease without esophagitis; K57.90 Diverticulosis of intestine, part unspecified, without perforation or abscess without bleeding
CPT/HCPCS: 36415; 80053; 81003; 81025; 83690; 83880; 84484; 85025; 93005; 96361; 96374; 96375; 99284; A9270; J2060; J2270; J2405; J2765; J7030

== ENCOUNTER 2020-04-19 05:11 | Emergency (ER) | payer MEDICARE, MEDICAID, SELFPAY ==
[2020-04-19 05:13] VITALS: BP 133/80; PULSE 74; RESP 15; TEMP 36.3; O2SAT 100
--- NOTE | 2020-04-19 05:29 | ED.ABDPAIN ---
HPI - Abdominal Pain General Chief Complaint: Abdominal Pain <DO Brie Hoffman Last Filed: 04/19/20 06:59> Stated Complaint: Abdominal pain <Rip Anderson DO - Last Filed: 04/19/20 06:59> Time Seen by Provider: 04/19/20 05:21 <Rip Anderson DO - Last Filed: 04/19/20 06:59> Source: RN notes reviewed <Rip Anderson DO - Last Filed: 04/19/20 06:59> History of Present Illness HPI narrative: Patient presents emergency department from home for abdominal pain. Patient with history of recurrent abdominal pain with nausea and vomiting over the past 3 months. Patient is been seen in the emergency department several times before in the past for the same. Patient states that she was seen 2 days ago and symptoms did improve for a day but then returned. Patient notes cramping in the upper abdomen associated with nausea as well as some diarrhea. She denies any fevers or chills chest pain shortness of breath or any other symptoms. She is tried taking her home medications including Zofran and dicyclomine with minimal relief. Patient is followed by Dr. Mathur and is currently being worked up for the symptoms <DO Brie Hoffman Last Filed: 04/19/20 06:59> Related Data Home Medications: Home Medications Medication Instructions Recorded Confirmed gabapentin 100 mg PO TID PRN 02/03/20 03/27/20 midodrine 5 mg PO BID 02/03/20 03/27/20 venlafaxine [Effexor XR] 150 mg PO DAILY 02/03/20 02/03/20 buspirone 5 mg PO BID 03/27/20 03/27/20 dicyclomine 20 mg PO QID 03/27/20 03/27/20 <DO Brie Hoffman Last Filed: 04/19/20 06:59> Allergies/Adverse Reactions: Allergies Allergy/AdvReac Type Severity Reaction Status Date / Time prochlorperazine AdvReac Severe Confusion Verified 04/19/20 05:17 metoclopramide [From Reglan] AdvReac Intermediate anxiety Verified 04/19/20 05:17 azithromycin AdvReac Unknown STOMACH Verified 04/19/20 05:17 UPSET <Rip Anderson DO - Last Filed: 04/19/20 06:59> Review of Systems Review of Systems: Narrative: Gen.: Denies fevers or chills ENT: Denies congestion Respiratory: Denies shortness of breath or cough CV: Denies chest pain or palpitations GI: See HPI denies burning, urgency, frequency or hematuria Musculoskeletal: Denies back pain or muscle pain Neuro: Denies numbness, tingling, weakness or focal weakness Skin: Denies rash Except as documented, all other systems reviewed and negative <Rip Anderson DO - Last Filed: 04/19/20 06:59> [facility] Past Medical History Medical History: Medical History Anxiety and depression Arthritis Atrial fibrillation Celiac disease Diverticulosis GERD (gastroesophageal reflux disease) Migraine headache Neuropathy <Rip Anderson DO - Last Filed: 04/19/20 06:59> Social History Social History: Social History Smoking packs per day: 0.5 Smoking cigarettes per day: 10.0 Years smoked: 10 Smoking pack-years: 5.00 Smoking status: Former smoker Tobacco type: cigarettes Alcohol intake: current Drinks per week: 1 Substance use: current Substance use type: marijuana Last use: 01-02-20 Gender identity (if verbalized by the patient): Female Spiritual care concerns: No <Rip Anderson DO - Last Filed: 04/19/20 06:59> Exam Narrative: Exam Narrative: APPEARANCE: No acute distress, nontoxic, resting in bed EYES: EOMI HEENT: Normocephalic, atraumatic, OMM RESPIRATORY: No respiratory distress Clear to auscultation bilaterally with no rhonchi wheezing or rales. CARDIOVASCULAR: Regular rate and rhythm without murmurs rubs or gallops. ABDOMINAL: Soft, nondistended, diffusely tender palpation no rebound or guarding MUSCULOSKELETAl: Moves all extremities. No clubbing, cyanosis or edema. NEURO: Awake and alert. Following commands, speech normal, no foca
[2020-04-19] MEDS: SODIUM CHLORIDE 0.9% IV 1,000 ML 999 ML IV CONT (05:36)
[2020-04-19] MEDS: PROMETHAZINE HCL 25 MG/ML AMPUL 12.5 MG IV PUSH (05:38)
[2020-04-19 05:43] LABS: Basophils Percent Auto 0.6 % (0.2-1.2); Eosinophils Absolute Auto 0.1 K/mm3 (0-0.3); Eosinophils Percent Auto 1.2 % (0-4.4); Hematocrit 41.6 % (37.0-47.0); Hemoglobin 13.5 g/dL (12.0-15.0); Immature Granulocyte Absolute 0.02 K/mm3 (0.00-0.031); Immature Granulocyte Percent A 0.3 % (0-0.5); Lymphocytes Absolute Auto 1.99 K/mm3 (0.9-3.2); Lymphocytes Percent Auto 28.8 % (18.3-44.2); Mean Corpuscular HGB Conc 32.5 g/dl (32-36); Mean Corpuscular Hemoglobin 30.5 pg (26-34); Mean Corpuscular Volume 93.9 fl (80-100); Mean Platelet Volume 10.7 fl (7.4-10.4); Monocytes Absolute Auto 0.6 K/mm3 (0.1-0.6); Monocytes Percent Auto 9.1 % (2.6-8.5); Neutrophils Absolute Auto 4.2 K/mm3 (1.3-6.7); Platelet Count Result 351 k/mm3 (150-375); Red Blood Count 4.43 M/mm3 (4.2-5.4); Red Cell Distribution Width 13.2 % (11.5-14.5); White Blood Count 6.9 K/mm3 (4.5-10.0)
[2020-04-19 05:46] LABS: Add Urine Microscopic? NO; Appearance Urine Clear (Clear); Bilirubin Urine Negative (Negative); Blood Urine Negative (Negative); Color Urine Colorless (Yellow); Glucose Urine UA Negative (Negative); Ketones Urine Negative (Negative); Leukocyte Esterase Ur Negative LEU/UL (Negative); Nitrate Urine Negative (Negative); Protein Urine Negative (Negative); Urobilinogen Urine Negative mg/dL (<2.0)
[2020-04-19 05:52] LABS: Specific Grav Ur 1.004 (1.001-1.035)
[2020-04-19 05:57] LABS: Alanine Aminotransferase 27 U/L (4-35); Albumin Level 5.3 g/dL (3.5-5.1); Alkaline Phosphatase 75 U/L (38-126); Anion Gap 9 mmol/L (8-16); Aspartate Amino Transferase 32 U/L (14-36); Bilirubin,Total 0.4 mg/dL (0.2-1.3); Blood Urea Nitrogen 10 mg/dL (7-17); Calcium 9.9 mg/dL (8.4-10.2); Carbon Dioxide 31 mmol/L (22-30); Chloride 103 mmol/L (98-107); Estimated Glomerular Filt Rate > 60; Glucose 115 mg/dL (65-105); Lipase 218 U/L (23-300); Potassium 3.3 mmol/L (3.4-5.0); Sodium 143 mmol/L (137-145)
[2020-04-19 06:40] VITALS: BP 103/65; PULSE 76; RESP 15; O2SAT 99
--- NOTE | 2020-04-19 06:51 | ECG_ITS ---
Measurements Intervals [place] Rate: 84 P: 91 MD: 137 QRS: 61 QRSD: 67 T: 65 QT: 351 QTc: 417 Interpretive Statements SINUS RHYTHM ATRIAL PREMATURE COMPLEXES BASELINE ARTIFACT- II, III, AVF BORDERLINE ECG Electronically Signed On 04-19-2020 7:03:47 CDT by Cabrera Moya D.O.
[2020-04-19 07:28] LABS: Magnesium 1.9 mg/dL (1.6-2.3)
[2020-04-19 08:20] VITALS: BP 101/72; PULSE 80; RESP 18; O2SAT 100
[2020-04-19 08:56] VITALS: BP 102/65; PULSE 73; RESP 18; O2SAT 97
== END 2020-04-19 08:58 | disposition home or self-care (01) ==
PROVIDERS: Emergency Medicine; Emergency Provider Emergency Medicine; PCP Family Medicine
DX: F12.10 Cannabis abuse, uncomplicated (principal); E87.6 Hypokalemia; R11.2 Nausea with vomiting, unspecified; I48.91 Unspecified atrial fibrillation; K90.0 Celiac disease; K21.9 Gastro-esophageal reflux disease without esophagitis; G62.9 Polyneuropathy, unspecified; F32.9 Major depressive disorder, single episode, unspecified; F41.9 Anxiety disorder, unspecified; Z87.891 Personal history of nicotine dependence
CPT/HCPCS: 36415; 80053; 81003; 83690; 83735; 85025; 93005; 96361; 96365; 96375; 99284; A9270; J0131; J2550; J7030

== ENCOUNTER 2020-04-27 07:27 | Emergency (ER) | payer MEDICARE, MEDICAID, SELFPAY ==
[2020-04-27 07:32] VITALS: BP 128/81; PULSE 88; RESP 20; TEMP 36.5; O2SAT 100
--- NOTE | 2020-04-27 07:53 | ED.ABDPAIN ---
HPI - Abdominal Pain General Chief Complaint: Abdominal Pain Stated Complaint: abd pain, n/v Time Seen by Provider: 04/27/20 07:29 Source: RN notes reviewed History of Present Illness HPI narrative: Patient presents emergency department from home for abdominal pain. Patient states that she is having pain in the epigastric region of the abdomen starting last night as well associated nausea. She states last night she took her dicyclomine and Zofran but is not taking medications this morning. Epigastric abdominal pain is described as burning and does not radiate. She denies any fevers or chills chest pain shortness of breath diarrhea or any other symptoms. Patient has a history of recurrent abdominal pain and nausea currently followed by Dr. Mathur. Patient does states she smokes marijuana with last ingestion last night Related Data Home Medications Medication Instructions Recorded Confirmed gabapentin 100 mg PO TID PRN 02/03/20 03/27/20 midodrine 5 mg PO BID 02/03/20 03/27/20 venlafaxine [Effexor XR] 150 mg PO DAILY 02/03/20 02/03/20 buspirone 5 mg PO BID 03/27/20 03/27/20 dicyclomine 20 mg PO QID 03/27/20 03/27/20 Allergies Allergy/AdvReac Type Severity Reaction Status Date / Time prochlorperazine AdvReac Severe Confusion Verified 04/27/20 07:35 metoclopramide [From Reglan] AdvReac Intermediate anxiety Verified 04/27/20 07:35 azithromycin AdvReac Unknown STOMACH Verified 04/27/20 07:35 UPSET Review of Systems Review of Systems: Narrative: Gen.: Denies fevers or chills ENT: Denies congestion Respiratory: Denies shortness of breath or cough CV: Denies chest pain or palpitations GI: See HPI denies burning, urgency, frequency or hematuria Musculoskeletal: Denies back pain or muscle pain Neuro: Denies numbness, tingling, weakness or focal weakness Skin: Denies rash Except as documented, all other systems reviewed and negative [facility] Social History Social History Smoking packs per day: 0.5 Smoking cigarettes per day: 10.0 Years smoked: 10 Smoking pack-years: 5.00 Smoking status: Former smoker Tobacco type: cigarettes Alcohol intake: current Drinks per week: 1 Substance use: current Substance use type: marijuana Last use: 01-02-20 Gender identity (if verbalized by the patient): Female Spiritual care concerns: No Exam Narrative: Exam Narrative: APPEARANCE: No acute distress, nontoxic, resting in bed HEENT: Normocephalic, atraumatic, OMM RESPIRATORY: No respiratory distress, clear to auscultation bilaterally with no rhonchi wheezing or rales CARDIOVASCULAR: RRR s murmur ABDOMINAL: Soft, nondistended, tender palpation epigastric, right upper quadrant left upper quadrant, no tenderness right lower quadrant left lower quadrant no rebound or guarding MUSCULOSKELETAl: Moves all extremities. No clubbing, cyanosis or edema. NEURO: Awake and alert. Following commands, speech normal, no focal deficits SKIN:: Warm, dry. Normal Color PSYCHIATRIC: Normal affect/mood Course Course Emergency Course: Reviewed old records. Patient is well-known to myself as well as this facility for similar complaints in past Discussed with patient results of workup and diagnosis. Discussed need for follow-up with primary care, proper use of medication, and reasons to return to the emergency department. Patient understands and agrees to current treatment plan Vital Signs Vital signs: Vital Signs Temperature 97.7 F 04/27/20 07:32 Pulse Rate 88 04/27/20 07:32 Respiratory Rate 20 04/27/20 07:32 Blood Pressure 128/81 04/27/20 07:32 Pulse Oximetry 100 04/27/20 07:32 Temperature 97.7 F 04/27/20 07:32 Pulse Rate 88 04/27/20 07:32 Respiratory Rate 20 04/27/20 07:32 Blood Pressure 128/81 04/27/20 07:32 Pulse Oximetry 100 04/27/20 07:32 MDM - Abdominal Pain MDM Narrative Medical decision making narrative: Patient's abdomen is s
[2020-04-27 07:57] LABS: Basophils Percent Auto 0.3 % (0.2-1.2); Eosinophils Percent Auto 0.7 % (0-4.4); Hematocrit 40.9 % (37.0-47.0); Hemoglobin 13.4 g/dL (12.0-15.0); Immature Granulocyte Absolute 0.02 K/mm3 (0.00-0.031); Immature Granulocyte Percent A 0.3 % (0-0.5); Lymphocytes Absolute Auto 1.24 K/mm3 (0.9-3.2); Lymphocytes Percent Auto 21.2 % (18.3-44.2); Mean Corpuscular HGB Conc 32.8 g/dl (32-36); Mean Corpuscular Hemoglobin 30.3 pg (26-34); Mean Corpuscular Volume 92.5 fl (80-100); Mean Platelet Volume 11.1 fl (7.4-10.4); Monocytes Absolute Auto 0.5 K/mm3 (0.1-0.6); Monocytes Percent Auto 8.5 % (2.6-8.5); Platelet Count Result 290 k/mm3 (150-375); Red Blood Count 4.42 M/mm3 (4.2-5.4); Red Cell Distribution Width 13.4 % (11.5-14.5); White Blood Count 5.9 K/mm3 (4.5-10.0)
[2020-04-27] MEDS: PANTOPRAZOLE SODIUM IV 40 MG VIAL IV PUSH (07:58)
[2020-04-27] MEDS: SODIUM CHLORIDE 0.9% IV 1,000 ML 999 ML IV CONT (07:58)
[2020-04-27] MEDS: ONDANSETRON INJ 4 MG/2 ML VIAL IV PUSH (07:58)
[2020-04-27 07:59] LABS: Add Urine Microscopic? YES; Appearance Urine Clear (Clear); Bilirubin Urine Negative (Negative); Blood Urine 1+ (Negative); Color Urine Straw (Yellow); Glucose Urine UA Negative (Negative); Ketones Urine Negative (Negative); Leukocyte Esterase Ur Negative LEU/UL (Negative); Mucus Urine Rare /lpf; Nitrate Urine Negative (Negative); Protein Urine Negative (Negative); RBC Urine 0-2 /hpf (0-2); Squamous Epithelial Cell Urine Rare /hpf (Few); Urobilinogen Urine Negative mg/dL (<2.0); WBC Urine 0-3 /hpf
[2020-04-27 08:06] LABS: Alanine Aminotransferase 12 U/L (4-35); Albumin Level 4.7 g/dL (3.5-5.1); Alkaline Phosphatase 71 U/L (38-126); Anion Gap 6 mmol/L (8-16); Aspartate Amino Transferase 22 U/L (14-36); Bilirubin,Total 0.3 mg/dL (0.2-1.3); Blood Urea Nitrogen 8 mg/dL (7-17); Calcium 9.5 mg/dL (8.4-10.2); Carbon Dioxide 30 mmol/L (22-30); Chloride 106 mmol/L (98-107); Estimated CRCL calculation 62 ml/min; Estimated Glomerular Filt Rate > 60; Glucose 114 mg/dL (65-105); Lipase 162 U/L (23-300); Potassium 3.7 mmol/L (3.4-5.0); Sodium 142 mmol/L (137-145)
[2020-04-27] MEDS: diphenhydrAMINE HCl INJ 50 MG/ML VIAL 25 MG IV PUSH (09:56)
[2020-04-27 11:04] VITALS: BP 118/80; PULSE 66; RESP 16; TEMP 36.8; O2SAT 99
== END 2020-04-27 11:05 | disposition home or self-care (01) ==
PROVIDERS: Emergency Provider Emergency Medicine
DX: R10.13 Epigastric pain (principal); R11.2 Nausea with vomiting, unspecified; Z87.891 Personal history of nicotine dependence
CPT/HCPCS: 36415; 80053; 81001; 81025; 83690; 85025; 96365; 96375; 99284; A9270; C9113; J0131; J1200; J2405; J7030

== ENCOUNTER 2020-04-28 20:40 | Emergency (ER) | payer MEDICARE, MEDICAID, SELFPAY ==
--- NOTE | 2020-04-28 20:42 | ECG_ITS ---
Measurements Intervals [place] Rate: 76 P: [place]: 0 QRS: 56 QRSD: 89 T: 12 QT: 390 QTc: 440 Interpretive Statements SINUS RHYTHM SUPRAVENTRICULAR TRIGEMINY BORDERLINE ST ABNORMALITY- DIFFUSE LEADS BASELINE ARTIFACT- I, II, III, AVR, AVL, AVF, V3-V6 ABNORMAL ECG Electronically Signed On 04-29-2020 7:34:04 CDT by Cabrera Moya D.O.
[2020-04-28 20:46] VITALS: BP 137/95; PULSE 70; RESP 16; TEMP 36; O2SAT 100
[2020-04-28 21:01] LABS: Basophils Percent Auto 0.3 % (0.2-1.2); Eosinophils Percent Auto 0.3 % (0-4.4); Hematocrit 40.7 % (37.0-47.0); Hemoglobin 13.4 g/dL (12.0-15.0); Immature Granulocyte Absolute 0.02 K/mm3 (0.00-0.031); Immature Granulocyte Percent A 0.3 % (0-0.5); Lymphocytes Absolute Auto 1.68 K/mm3 (0.9-3.2); Lymphocytes Percent Auto 22.7 % (18.3-44.2); Mean Corpuscular HGB Conc 32.9 g/dl (32-36); Mean Corpuscular Volume 91.3 fl (80-100); Mean Platelet Volume 10.8 fl (7.4-10.4); Monocytes Absolute Auto 0.7 K/mm3 (0.1-0.6); Monocytes Percent Auto 9.9 % (2.6-8.5); Neutrophils Absolute Auto 4.9 K/mm3 (1.3-6.7); Neutrophils Percent Auto 66.5 % (45.5-73.1); Platelet Count Result 303 k/mm3 (150-375); Red Blood Count 4.46 M/mm3 (4.2-5.4); Red Cell Distribution Width 13.2 % (11.5-14.5); White Blood Count 7.4 K/mm3 (4.5-10.0)
[2020-04-28 21:27] LABS: Alanine Aminotransferase 13 U/L (4-35); Albumin Level 5.1 g/dL (3.5-5.1); Alkaline Phosphatase 74 U/L (38-126); Anion Gap 9 mmol/L (8-16); Aspartate Amino Transferase 26 U/L (14-36); Bilirubin,Total 0.5 mg/dL (0.2-1.3); Blood Urea Nitrogen 9 mg/dL (7-17); Carbon Dioxide 28 mmol/L (22-30); Chloride 104 mmol/L (98-107); Estimated CRCL calculation 62 ml/min; Estimated Glomerular Filt Rate > 60; Glucose 101 mg/dL (65-105); Lipase 187 U/L (23-300); Sodium 141 mmol/L (137-145)
[2020-04-28 21:37] LABS: Potassium 3.5 mmol/L (3.4-5.0)
--- NOTE | 2020-04-28 23:00 | ED.ARRPALP ---
HPI - Arrhythmia/Palpitations General Chief Complaint: Arrhythmia/Palpitations Stated Complaint: palpatations Time Seen by Provider: 04/28/20 22:48 Source: patient Mode of arrival: ambulatory Limitations: no limitations History of Present Illness HPI narrative: This patient is a 50 year old female with history of gastritis, chronic abdominal pain, paroxsymal afib who presents for evaluation continued abdominal pain and palpitations. This patient states her epigastric pain has worsened since yesterday. She denies associated vomiting but she has nausea. She also reports palpitations , and she has chronic history of palpitations as well. She also reports burning nonradiating chest pain. She has taken her pepcid, bentyl and protonix. complaint: palpitations Related Data Home Medications Medication Instructions Recorded Confirmed gabapentin 100 mg PO TID PRN 02/03/20 03/27/20 midodrine 5 mg PO BID 02/03/20 03/27/20 venlafaxine [Effexor XR] 150 mg PO DAILY 02/03/20 02/03/20 buspirone 5 mg PO BID 03/27/20 03/27/20 dicyclomine 20 mg PO QID 03/27/20 03/27/20 Allergies Allergy/AdvReac Type Severity Reaction Status Date / Time prochlorperazine AdvReac Severe Confusion Verified 04/28/20 20:41 metoclopramide [From Reglan] AdvReac Intermediate anxiety Verified 04/28/20 20:41 azithromycin AdvReac Unknown STOMACH Verified 04/28/20 20:41 UPSET Review of Systems Review of Systems: All systems reviewed & are unremarkable except as noted in HPI and below Constitutional: Constitutional: Denies chills and Denies fever(s) Cardiovascular: Cardiovascular: Reports chest pain Respiratory: Respiratory: Denies cough and Denies dyspnea Gastrointestinal: Gastrointestinal: Reports abdominal pain, Denies diarrhea, Reports nausea and Denies vomiting PMFSH Past Medical History Medical History Anxiety and depression Arthritis Atrial fibrillation Celiac disease Diverticulosis GERD (gastroesophageal reflux disease) Migraine headache Neuropathy Surgical History Surgical History History of delivery History of cholecystectomy History of Gary fundoplication History of tubal ligation Social History Social History Smoking packs per day: 0.5 Smoking cigarettes per day: 10.0 Years smoked: 10 Smoking pack-years: 5.00 Smoking status: Former smoker Tobacco type: cigarettes Alcohol intake: current Drinks per week: 1 Substance use: current Substance use type: marijuana Last use: 01-02-20 Gender identity (if verbalized by the patient): Female Spiritual care concerns: No Exam Narrative: Exam Narrative: GENERAL: Well-appearing, well-nourished, and in no acute distress. HEAD: Normocephalic, atraumatic EYES: PERRLA and EOMI, conjunctiva clear without discharge THROAT:Mucous membranes moist, Oropharynx normal without erythema, exudate, peritonsillar swelling or fluctuance NECK: Supple, without lymphadenopathy or mass RESPIRATORY: No respiratory distress, Airway patent, Respirations non-labored, Clear to auscultation without rales, rhonchi or wheeze HEART: Regular rate and rhythm. No murmur heard. Normal peripheral pulses. ABDOMEN: Soft, epigastric, nondistended, normal active bowel sounds. No masses. No rebound or guarding, No organomegaly. EXTREMITIES: No edema, normal strength with full range of motion. SKIN: Warm, dry, normal color without rash NEURO: Alert and oriented x3. CN 2-12 grossly intact. No focal deficits. PSYCH: Normal mood and affect. Course Reevaluation(s) Reevaluation #1: Patient is resting comfortably in bed. Patient presented with chronic complaints. labs are unremarkable. She has heart score of only 2 so she is stable for discharge home. EKG shows sinus rhythm Date: 04/29/20 Time: 02:46 Vital Signs
[2020-04-28] MEDS: BELLADONNA ALK/PHENOB ELIX 10 ML, MAG HYDROX/ALUMINUM HYD/SIMETH 30 ML, LIDOCAINE HCL 2... PO (23:06)
[2020-04-28] MEDS: ONDANSETRON HCL ODT 4 MG TABLET PO (23:06)
[2020-04-29 00:50] LABS: Magnesium 2.2 mg/dL (1.6-2.3)
[2020-04-29 01:02] LABS: Troponin I < 0.012 ng/mL (0.000-0.034)
[2020-04-29 02:08] LABS: Add Urine Microscopic? YES; Appearance Urine Clear (Clear); Bacteria Urine Trace /hpf; Bilirubin Urine Negative (Negative); Blood Urine Negative (Negative); Color Urine Yellow (Yellow); Glucose Urine UA Negative (Negative); Ketones Urine Trace mg/dL (Negative); Leukocyte Esterase Ur Negative LEU/UL (Negative); Mucus Urine Rare /lpf; Nitrate Urine Negative (Negative); Protein Urine Negative (Negative); RBC Urine 0-2 /hpf (0-2); Specific Grav Ur 1.011 (1.001-1.035); Squamous Epithelial Cell Urine Rare /hpf (Few); Urobilinogen Urine Negative mg/dL (<2.0); WBC Urine 0-3 /hpf
[2020-04-29 02:27] LABS: Troponin I < 0.012 ng/mL (0.000-0.034)
[2020-04-29 02:37] VITALS: BP 135/82; PULSE 65; RESP 18; O2SAT 98
[2020-04-29 03:17] VITALS: BP 132/85; PULSE 87; RESP 16; TEMP 36.7; O2SAT 98
== END 2020-04-29 03:18 | disposition home or self-care (01) ==
PROVIDERS: Family Medicine; Emergency Provider General Practice
DX: K58.9 Irritable bowel syndrome, unspecified (principal); R00.2 Palpitations; F41.9 Anxiety disorder, unspecified; I48.0 Paroxysmal atrial fibrillation; F32.9 Major depressive disorder, single episode, unspecified; K90.0 Celiac disease; K21.9 Gastro-esophageal reflux disease without esophagitis; G62.9 Polyneuropathy, unspecified; Z87.891 Personal history of nicotine dependence
CPT/HCPCS: 36415; 80053; 81001; 83690; 83735; 84484; 85025; 93005; 99284; A9270

== ENCOUNTER 2020-05-09 18:14 | Emergency (ER) | payer MEDICARE, MEDICAID, SELFPAY ==
--- NOTE | ~2020-05-09 | XR_ITS ---
EXAMINATION: XR chest 2V EXAM DATE: 05/09/2020 19:09 INDICATION: Irregular heart rate, burning sensation in chest. History atrial fibrillation. TECHNIQUE: Frontal and lateral projections of the chest obtained and reviewed. Comparison is made to prior examination from 03/14/2020. FINDINGS: Moderate hyperinflation. The lungs are clear. There are no pleural effusions. The cardio mediastinal silhouette is within normal limits. There is no pneumothorax suspected. The bones and s oft tissues are unremarkable. There is no significant interval change. IMPRESSION: 1. No acute cardiopulmonary findings. 2. Hyperinflation. Reviewed, dictated and finalized at location A.
--- NOTE | 2020-05-09 18:35 | ECG_ITS ---
Measurements Intervals [place] Rate: 74 P: [place]: 0 QRS: 46 QRSD: 63 T: 33 QT: 370 QTc: 411 Interpretive Statements SINUS RHYTHM FREQUENT ATRIAL PREMATURE COMPLEXES BASELINE ARTIFACT- I, II, III, AVR, AVF, V3 ABNORMAL ECG Electronically Signed On 05-10-2020 6:57:04 CDT by Cabrera Moya D.O.
[2020-05-09 18:57] LABS: Basophils Percent Auto 0.4 % (0.2-1.2); Eosinophils Absolute Auto 0.1 K/mm3 (0-0.3); Hematocrit 36.7 % (37.0-47.0); Hemoglobin 12.1 g/dL (12.0-15.0); Immature Granulocyte Absolute 0.01 K/mm3 (0.00-0.031); Immature Granulocyte Percent A 0.1 % (0-0.5); Lymphocytes Percent Auto 26.7 % (18.3-44.2); Mean Corpuscular Hemoglobin 30.2 pg (26-34); Mean Corpuscular Volume 91.5 fl (80-100); Mean Platelet Volume 10.9 fl (7.4-10.4); Monocytes Absolute Auto 0.7 K/mm3 (0.1-0.6); Monocytes Percent Auto 10.4 % (2.6-8.5); Neutrophils Absolute Auto 4.1 K/mm3 (1.3-6.7); Neutrophils Percent Auto 61.4 % (45.5-73.1); Platelet Count Result 285 k/mm3 (150-375); Red Blood Count 4.01 M/mm3 (4.2-5.4); Red Cell Distribution Width 13.1 % (11.5-14.5); White Blood Count 6.7 K/mm3 (4.5-10.0)
[2020-05-09 18:58] VITALS: BP 139/78; PULSE 74; RESP 14; TEMP 36.8; O2SAT 99
--- NOTE | 2020-05-09 19:04 | ED.ARRPALP ---
HPI - Arrhythmia/Palpitations General Chief Complaint: Arrhythmia/Palpitations Stated Complaint: poss afibb, burning chest Time Seen by Provider: 05/09/20 19:01 History of Present Illness HPI narrative: Heart racing and palpitations for the past hour. Now having burning pain in her chest. She has a h/o atrial fibrillation and chronic abdominal pain issues for which she is seen here frequently. Related Data Home Medications Medication Instructions Recorded Confirmed gabapentin 100 mg PO TID PRN 02/03/20 03/27/20 midodrine 5 mg PO BID 02/03/20 03/27/20 venlafaxine [Effexor XR] 150 mg PO DAILY 02/03/20 02/03/20 buspirone 5 mg PO BID 03/27/20 03/27/20 dicyclomine 20 mg PO QID 03/27/20 03/27/20 Allergies Allergy/AdvReac Type Severity Reaction Status Date / Time prochlorperazine AdvReac Severe Confusion Verified 04/28/20 20:41 metoclopramide [From Reglan] AdvReac Intermediate anxiety Verified 04/28/20 20:41 azithromycin AdvReac Unknown STOMACH Verified 04/28/20 20:41 UPSET Review of Systems Review of Systems: All systems reviewed & are unremarkable except as noted in HPI and below Constitutional: Constitutional: Reports weakness ENT: Reports dizziness Cardiovascular: Cardiovascular: Reports chest pain and Reports rapid heart rate Respiratory: Respiratory: Reports dyspnea Gastrointestinal: Gastrointestinal: Reports abdominal pain and Reports nausea Neurologic: Reports numbness and Reports weakness PMFSH Past Medical History Medical History Anxiety and depression Arthritis Atrial fibrillation Celiac disease Diverticulosis GERD (gastroesophageal reflux disease) Migraine headache Neuropathy Surgical History Surgical History History of delivery History of cholecystectomy History of Gary fundoplication History of tubal ligation Family History Family History Mother Family history of elevated blood lipids Family history of arthritis Sibling Family history of arthritis Other Cerebrovascular accident Family history of cardiovascular disease Hypertension Social History Social History Smoking packs per day: 0.5 Smoking cigarettes per day: 10.0 Years smoked: 10 Smoking pack-years: 5.00 Smoking status: Former smoker Tobacco type: cigarettes Alcohol intake: current Drinks per week: 1 Substance use: current Substance use type: marijuana Last use: 01-02-20 Gender identity (if verbalized by the patient): Female Spiritual care concerns: No Exam Const: General: no acute distress and alert Nutritional Appearance: well nourished Orientation/consciousness: patient oriented x3 HENMT: Head: normal to inspection Resp: Effort & Inspection: normal respiratory effort Auscultation: clear to auscultation bilaterally, no rales, no rhonchi and no wheezes Cardio: Rate: regular rate Rhythm: regular rhythm Skin: General skin exam: normal color Neuro: General: patient oriented x3 and moves all extremities Speech: normal speech Extrem: General: normal to inspection Psych: Affect: Anxious affect present Course Vital Signs Vital signs: Vital Signs Temperature 36.8 C 05/09/20 18:58 Pulse Rate 74 05/09/20 18:58 Respiratory Rate 14 05/09/20 18:58 Blood Pressure 139/78 05/09/20 18:58 Pulse Oximetry 99 05/09/20 18:58 Temperature 36.8 C 05/09/20 18:58 Pulse Rate 88 05/09/20 22:23 Respiratory Rate 17 05/09/20 22:23 Blood Pressure 113/74 05/09/20 22:23 Pulse Oximetry 99 05/09/20 22:23 MDM - Arrhythmia/Palpitations MDM Narrative Medical decision making narrative: First EKG shows apparent a-fib, but difficult to interpret due to artifact. Telemetry and repeat EKG show sinus rythym with PACs Differential
[2020-05-09 19:09] LABS: Prothrombin Time 13.3 Seconds (11.1-14.7)
[2020-05-09 19:09] LABS: Anion Gap 7 mmol/L (8-16); Blood Urea Nitrogen 12 mg/dL (7-17); Calcium 9.1 mg/dL (8.4-10.2); Carbon Dioxide 27 mmol/L (22-30); Chloride 105 mmol/L (98-107); Estimated Glomerular Filt Rate > 60; Glucose 99 mg/dL (65-105); Potassium 3.5 mmol/L (3.4-5.0); Sodium 139 mmol/L (137-145)
[2020-05-09 19:10] LABS: Partial Thromboplastin Time 27.1 SECONDS (22.3-36.8)
--- NOTE | 2020-05-09 19:15 | PC.NURSE ---
REPORT RECEIVED AT THIS TIME. PT RESTING ON STRETCHER. PT C/O FEELING ANXIOUS. PT RR EVEN AND UNLABORED. VS STABLE. CALL LIGHT IN REACH-ENCOURAGED TO USE. PT REMAINS HOOKED UP TO MONITOR. MD AT BEDSIDE FOR EVALUATION.
[2020-05-09 19:20] LABS: Troponin I < 0.012 ng/mL (0.000-0.034)
[2020-05-09] MEDS: SODIUM CHLORIDE 0.9% IV 1,000 ML 999 ML IV CONT (19:57)
[2020-05-09 19:58] VITALS: BP 127/80; PULSE 76; RESP 17; O2SAT 100
--- NOTE | 2020-05-09 20:15 | ECG_ITS ---
Measurements Intervals [place] Rate: 77 P: 60 MT: 150 QRS: 58 QRSD: 87 T: 61 QT: 408 QTc: 463 Interpretive Statements SINUS RHYTHM ATRIAL PREMATURE COMPLEX BASELINE ARTIFACT- II, III, AVL, V1 BORDERLINE ECG Electronically Signed On 05-10-2020 7:00:07 CDT by Cabrera Moya D.O.
[2020-05-09 22:13] LABS: Troponin I < 0.012 ng/mL (0.000-0.034)
[2020-05-09 22:23] VITALS: BP 113/74; PULSE 88; RESP 17; O2SAT 99
== END 2020-05-09 22:24 | disposition home or self-care (01) ==
PROVIDERS: Emergency Medicine; Emergency Provider Emergency Medicine
DX: R00.2 Palpitations (principal); F41.9 Anxiety disorder, unspecified; R94.31 Abnormal electrocardiogram [ECG] [EKG]; Z87.891 Personal history of nicotine dependence; F32.9 Major depressive disorder, single episode, unspecified; I48.91 Unspecified atrial fibrillation; K21.9 Gastro-esophageal reflux disease without esophagitis; G62.9 Polyneuropathy, unspecified; M19.90 Unspecified osteoarthritis, unspecified site
CPT/HCPCS: 36415; 71046; 80048; 84484; 85025; 85610; 85730; 93005; 96361; 96374; 99284; J2060; J7030

== ENCOUNTER 2020-05-10 07:50 | Outpatient (CLI) | payer MEDICARE, MEDICAID, SELFPAY ==
--- NOTE | ~2020-05-10 | XR_ITS ---
EXAMINATION: XR UGIAC w small bowel DATE: 05/10/2020 10:21 INDICATION: Abdominal pain, diarrhea. Hiatal hernia repair. TECHNIQUE: The patient drank thick barium, gas-producing crystals, and thin barium. A total of 916 fl uoroscopic images of the esophagus, stomach, and proximal small bowel were obtained. 6 overhead radio graphs were obtained during transit of contrast through the small bowel. Fluoroscopy exposure time wa s 4.6 minutes. COMPARISON: CT abdomen and pelvis dated 03/14/2020 FINDINGS: The esophagus is normal without mass or stricture. Esophageal motility is normal. Oh stoppe r change of prior Gary fundal calcification with no evident recurrent hiatal hernia. There was no g astroesophageal reflux with provocative maneuvers. The stomach and proximal small bowel are normal. T he colon is not diagnostically evaluated with minimal opacification of the cecum and ascending colon which was not prepped. Nonetheless there is suggestion of smooth haustral fold thickening in the prox imal colon which could be seen with colitis. IMPRESSION: 1. Gary fundoplication without recurrent hiatal hernia or evident reflux with provocative maneuvers . 2. Normal small bowel follow-through. 3. Suggestion of haustral fold thickening in the proximal colon suggestive of colitis which could be infectious, inflammatory or ischemic in etiology. Correlate clinically and could consider colonoscopy for further evaluation. Reviewed, dictated and finalized at location A. IMPRESSION: 1. Gary fundoplication without recurrent hiatal hernia or evident reflux with provocative maneuvers. 2. Normal small bowel follow-through. 3. Suggestion of haustral fold thickening in the proximal colon suggestive of c olitis which could be infectious, inflammatory or ischemic in etiology. Correla te clinically and could consider colonoscopy for further evaluation.
== END 2020-05-10 07:51 | disposition home or self-care (01) ==
PROVIDERS: Visit Provider Internal Medicine Gastroenterology
DX: R10.9 Unspecified abdominal pain (principal); R93.3 Abnormal findings on diagnostic imaging of other parts of digestive tract
CPT/HCPCS: 74246; 74248

== ENCOUNTER 2020-05-10 17:57 | Emergency (ER) | payer MEDICARE, MEDICAID, SELFPAY ==
--- NOTE | ~2020-05-10 | XR_ITS ---
EXAMINATION: XR chest 2V EXAM DATE: 05/10/2020 18:25 INDICATION: Heart palpitations. Center, right-sided abdominal pain, with vomiting and nausea. Symptom s 3 months. TECHNIQUE: Frontal and lateral projections of the chest obtained and reviewed. Comparison is made to prior examination from 05/09/2020. FINDINGS: The lungs are clear. There are no pleural effusions. The cardiomediastinal silhouette is within normal limits. There is no pneumothorax suspected. The bones and soft tissues are unremarkab le. Mild hyperinflation. Dense material within the colon, from patient's recent upper GI exam. IMPRESSION: Mild hyperinflation. Reviewed, dictated and finalized at location A. IMPRESSION: Mild hyperinflation.
[2020-05-10 18:01] VITALS: BP 139/83; PULSE 80; RESP 12; TEMP 36.6; O2SAT 100
--- NOTE | 2020-05-10 18:02 | ECG_ITS ---
Measurements Intervals [place] Rate: 77 P: 30 [place]: 137 QRS: 45 QRSD: 101 T: 47 QT: 384 QTc: 436 Interpretive Statements SINUS RHYTHM ATRIAL PREMATURE COMPLEXES BORDERLINE ST ABNORMALITY- ANT/INF LEADS BASELINE ARTIFACT- V5 BORDERLINE ECG Electronically Signed On 05-11-2020 7:19:39 CDT by Cabrera Moya D.O.
--- NOTE | 2020-05-10 18:02 | ED.ARRPALP ---
HPI - Arrhythmia/Palpitations General Chief Complaint: Arrhythmia/Palpitations Stated Complaint: Palpitations Time Seen by Provider: 05/10/20 18:02 Source: patient and family Mode of arrival: ambulatory Limitations: no limitations History of Present Illness HPI narrative: Patient is a 50-year-old female with a history of gastritis, chronic abdominal pain, anxiety, chronic palpitations who is well-known to our facility and presents for evaluation of palpitations. Patient states she reports fatigue, palpitations without chest pain, epigastric pain which is burning in nature over the past 24 hours. Patient states she was seen here yesterday with a negative work-up with Dr. Biggs. She states that she had a GI study and follow through with Dr. Salmeron this morning which was inconclusive per the patient. She states that she was discharged home and just has not been feeling like herself. Patient denies any lorna abdominal pain. No urinary symptoms. No fever, cough or shortness of breath. When asked the patient felt like her anxiety and depression contributed to her symptoms she stated that they do and really her symptoms have been worsening over the past 5 years. Per chart review, pt with 5 visits in March 2020. Related Data Home Medications Medication Instructions Recorded Confirmed gabapentin 100 mg PO TID PRN 02/03/20 03/27/20 midodrine 5 mg PO BID 02/03/20 03/27/20 venlafaxine [Effexor XR] 150 mg PO DAILY 02/03/20 02/03/20 buspirone 5 mg PO BID 03/27/20 03/27/20 dicyclomine 20 mg PO QID 03/27/20 03/27/20 Allergies Allergy/AdvReac Type Severity Reaction Status Date / Time prochlorperazine AdvReac Severe Confusion Verified 04/28/20 20:41 metoclopramide [From Reglan] AdvReac Intermediate anxiety Verified 04/28/20 20:41 azithromycin AdvReac Unknown STOMACH Verified 04/28/20 20:41 UPSET Review of Systems Review of Systems: Narrative: CONSTITUTIONAL: Denies fever, chills, or sweats. EYES: Denies visual changes ENT: Denies rhinorrhea, congestion, sore throat, or otalgia. CARDIOVASCULAR: Denies chest pain, reports intermittent palpitations, denies lower extremity edema RESPIRATORY: Denies cough or dyspnea. GASTROINTESTINAL: Reports chronic epigastric abdominal pain and nausea without vomiting GENITOURINARY: Denies dysuria or hematuria. SKIN: Denies rash or itching. MUSCULOSKELETAL: Denies back pain, joint pain, or myalgia. NEUROLOGIC: Denies headache, numbness, reports feeling weak and fatigued PSYCHIATRIC: Reports anxiety and depression [facility] Past Medical History Medical History Anxiety and depression Arthritis Atrial fibrillation Celiac disease Diverticulosis GERD (gastroesophageal reflux disease) Migraine headache Neuropathy Surgical History Surgical History History of delivery History of cholecystectomy History of Gary fundoplication History of tubal ligation Family History Family History Mother Family history of elevated blood lipids Family history of arthritis Sibling Family history of arthritis Other Cerebrovascular accident Family history of cardiovascular disease Hypertension Social History Social History Smoking packs per day: 0.5 Smoking cigarettes per day: 10.0 Years smoked: 10 Smoking pack-years: 5.00 Smoking status: Former smoker Tobacco type: cigarettes Alcohol intake: current Drinks per week: 1 Substance use: current Substance use type: marijuana Last use: 01-02-20 Gender identity (if verbalized by the patient): Female Spiritual care concerns: No Exam Narrative: Exam Narrative: GENERAL: Awake, alert, conversant HEAD: Normocephalic, atraumatic. EYES: PERRLA and EOMI. ENT: Nares clear, no rhinorrhea or epistaxis. Mucous membr
[2020-05-10] MEDS: SODIUM CHLORIDE 0.9% IV 1,000 ML 999 ML IV CONT (18:31)
[2020-05-10 18:37] LABS: Basophils Percent Auto 0.4 % (0.2-1.2); Eosinophils Percent Auto 0.5 % (0-4.4); Hematocrit 37.1 % (37.0-47.0); Hemoglobin 12.2 g/dL (12.0-15.0); Immature Granulocyte Absolute 0.02 K/mm3 (0.00-0.031); Immature Granulocyte Percent A 0.3 % (0-0.5); Lymphocytes Absolute Auto 1.77 K/mm3 (0.9-3.2); Lymphocytes Percent Auto 24.1 % (18.3-44.2); Mean Corpuscular HGB Conc 32.9 g/dl (32-36); Mean Corpuscular Hemoglobin 30.2 pg (26-34); Mean Corpuscular Volume 91.8 fl (80-100); Mean Platelet Volume 10.9 fl (7.4-10.4); Monocytes Absolute Auto 0.7 K/mm3 (0.1-0.6); Monocytes Percent Auto 9.9 % (2.6-8.5); Neutrophils Absolute Auto 4.8 K/mm3 (1.3-6.7); Neutrophils Percent Auto 64.8 % (45.5-73.1); Platelet Count Result 273 k/mm3 (150-375); Red Blood Count 4.04 M/mm3 (4.2-5.4); Red Cell Distribution Width 13.2 % (11.5-14.5); White Blood Count 7.3 K/mm3 (4.5-10.0)
[2020-05-10 18:46] LABS: Prothrombin Time 13.3 Seconds (11.1-14.7)
[2020-05-10 18:47] LABS: Partial Thromboplastin Time 27.4 SECONDS (22.3-36.8)
[2020-05-10 18:49] LABS: Anion Gap 10 mmol/L (8-16); Blood Urea Nitrogen 10 mg/dL (7-17); Calcium 9.2 mg/dL (8.4-10.2); Carbon Dioxide 27 mmol/L (22-30); Chloride 105 mmol/L (98-107); Estimated CRCL calculation 70 ml/min; Estimated Glomerular Filt Rate > 60; Glucose 100 mg/dL (65-105); Potassium 3.6 mmol/L (3.4-5.0); Sodium 142 mmol/L (137-145)
[2020-05-10 19:00] LABS: Troponin I < 0.012 ng/mL (0.000-0.034)
[2020-05-10] MEDS: ONDANSETRON INJ 4 MG/2 ML VIAL IV PUSH (19:25)
[2020-05-10 19:54] VITALS: BP 128/80; PULSE 80; RESP 18; O2SAT 99
== END 2020-05-10 19:55 | disposition home or self-care (01) ==
PROVIDERS: Emergency Provider Emergency Medicine
DX: R00.2 Palpitations (principal); F41.9 Anxiety disorder, unspecified; R10.13 Epigastric pain; F32.9 Major depressive disorder, single episode, unspecified; M19.90 Unspecified osteoarthritis, unspecified site; I48.91 Unspecified atrial fibrillation; K90.0 Celiac disease; K21.9 Gastro-esophageal reflux disease without esophagitis; G62.9 Polyneuropathy, unspecified; Z87.891 Personal history of nicotine dependence; I49.1 Atrial premature depolarization; R94.31 Abnormal electrocardiogram [ECG] [EKG]
CPT/HCPCS: 36415; 71046; 80048; 84484; 85025; 85610; 85730; 93005; 96374; 99284; J2405; J7030

== ENCOUNTER 2020-05-23 07:39 | Emergency (ER) | payer MEDICARE, MEDICAID, SELFPAY ==
[2020-05-23] VITALS (17 sets, daily range): BP systolic 103–149; BP diastolic 70–88; PULSE 59–81; RESP 12–21; TEMP 36.8–36.9; O2SAT 96–100
--- NOTE | ~2020-05-23 | XR_ITS ---
EXAMINATION: XR chest 2V 05/23/2020 10:54 INDICATION: Epigastric pain PROCEDURE: 2 view chest COMPARISON: Comparison to multiple prior studies sequentially, with oldest reviewed study dated 12/2019. FINDINGS: The lungs are clear. The cardiomediastinal silhouette is within normal limits. There are no pleural effusions. There is no pneumothorax suspected. IMPRESSION: 1: NO ACUTE CARDIOPULMONARY DISEASE. Reviewed, dictated and finalized at location A.
--- NOTE | ~2020-05-23 | CT_ITS ---
EXAMINATION: CT abdomen pelvis w con DATE: 05/23/2020 11:34 INDICATION: Abdomen pain. History of irritable bowel syndrome. TECHNIQUE: Computed tomography (CT) of the abdomen and pelvis was performed with 100 cc Omnipaque 350 intravenous contrast. The dose-length product was 236.26 mGy-cm. Automated exposure control and iter ative reconstruction technique were employed. COMPARISON: CT dated 03/14/2020. FINDINGS: Lung bases unremarkable. No significant pleural or pericardial effusion. Heart size normal. Status post cholecystectomy with expected prominence of the bile ducts. There is a 13 mm exophytic r ight renal cyst. The spleen, pancreas, adrenal glands are unremarkable. There is a subcentimeter hypo density of the left kidney, most likely benign cysts. Nonobstructive bowel gas pattern. Tiny fat-cont aining umbilical hernia. No free air or free fluid. No significant vascular abnormality. No lymphaden opathy. There is dextrocurvature of the lumbar spine. No acute osseous abnormality. IMPRESSION: 1. No acute abdominal abnormality. 2: Status post cholecystectomy with expected prominence of the bile ducts. Reviewed, dictated and finalized at location A.
--- NOTE | 2020-05-23 08:04 | ED.ABDPAIN ---
HPI - Abdominal Pain General Chief Complaint: Abdominal Pain Stated Complaint: abd pain Time Seen by Provider: 05/23/20 08:04 Source: patient and family Mode of arrival: ambulatory Limitations: no limitations History of Present Illness HPI narrative: Patient is a 50-year-old female who is well-known to our facility who presents for evaluation of recurrent abdominal pain and diarrhea. Patient reports that she had been doing well for approximately 11 days, and then began to experience lower abdominal cramping pain, and heartburn. Patient is denying any chest pain or shortness of breath. She does report nausea without vomiting. She reports loose stools without any blood or mucus present. She states is consistent with previous symptoms. She has been trying her antacids and nausea medications without much improvement in her symptoms. She states her symptoms began after eating some red meat which she does not typically consume. Related Data Home Medications Medication Instructions Recorded Confirmed gabapentin 100 mg PO TID PRN 02/03/20 03/27/20 midodrine 5 mg PO BID 02/03/20 03/27/20 venlafaxine [Effexor XR] 150 mg PO DAILY 02/03/20 02/03/20 buspirone 5 mg PO BID 03/27/20 03/27/20 dicyclomine 20 mg PO QID 03/27/20 03/27/20 Allergies Allergy/AdvReac Type Severity Reaction Status Date / Time prochlorperazine AdvReac Severe Confusion Verified 04/28/20 20:41 metoclopramide [From Reglan] AdvReac Intermediate anxiety Verified 04/28/20 20:41 azithromycin AdvReac Unknown STOMACH Verified 04/28/20 20:41 UPSET Review of Systems Review of Systems: Narrative: CONSTITUTIONAL: Denies fever, chills ENT: Denies rhinorrhea, congestion CARDIOVASCULAR: Denies chest pain, reports acid reflux RESPIRATORY: Denies cough or dyspnea. GASTROINTESTINAL: Reports abdominal pain, nausea and diarrhea. GENITOURINARY: Denies dysuria or hematuria. SKIN: Denies rash or itching. MUSCULOSKELETAL: Denies back pain, joint pain, or myalgia. NEUROLOGIC: Denies headache, numbness, or weakness. [facility] Past Medical History Medical History Anxiety and depression Arthritis Atrial fibrillation Celiac disease Diverticulosis GERD (gastroesophageal reflux disease) Migraine headache Neuropathy Social History Social History Smoking packs per day: 0.5 Smoking cigarettes per day: 10.0 Years smoked: 10 Smoking pack-years: 5.00 Smoking status: Former smoker Tobacco type: cigarettes Alcohol intake: current Drinks per week: 1 Substance use: current Substance use type: marijuana Last use: 01-02-20 Gender identity (if verbalized by the patient): Female Spiritual care concerns: No Exam Narrative: Exam Narrative: GENERAL: Awake, alert, conversant HEAD: Normocephalic, atraumatic. EYES: PERRLA and EOMI. ENT: Nares clear, no rhinorrhea or epistaxis. Mucous membranes moist. NECK: Supple. CHEST: No respiratory distress, breathing even and non labored HEART: Regular rate, sinus rhythm ABDOMEN:Non distended, non tender, nonrigid, no guarding EXTREMITIES: Normal range of motion. No edema. SKIN: Warm, dry, no rash. NEURO:No focal deficits. Alert and oriented x3 Course Vital Signs Vital signs: Vital Signs Temperature 36.8 C 05/23/20 08:42 Pulse Rate 77 05/23/20 08:42 Respiratory Rate 14 05/23/20 08:42 Blood Pressure 103/72 05/23/20 08:42 Pulse Oximetry 99 05/23/20 08:42 Temperature 36.8 C 05/23/20 11:18 Pulse Rate 66 05/23/20 11:18 Respiratory Rate 21 H 05/23/20 11:18 Blood Pressure 139/84 05/23/20 11:18 Pulse Oximetry 100 05/23/20 11:18 MDM - Abdominal Pain MDM Narrative Medical decision making narrative: Patient's abdomen is soft without significant pain or signs of surgical abdomen on serial exams. Lab and imaging evaluations are reviewed and patient is felt to be a reasonable candidate f
[2020-05-23 08:48] LABS: Basophils Percent Auto 0.4 % (0.2-1.2); Eosinophils Percent Auto 0.4 % (0-4.4); Hematocrit 39.9 % (37.0-47.0); Immature Granulocyte Absolute 0.01 K/mm3 (0.00-0.031); Immature Granulocyte Percent A 0.2 % (0-0.5); Lymphocytes Absolute Auto 0.99 K/mm3 (0.9-3.2); Lymphocytes Percent Auto 17.9 % (18.3-44.2); Mean Corpuscular HGB Conc 32.6 g/dl (32-36); Mean Corpuscular Hemoglobin 30.4 pg (26-34); Mean Corpuscular Volume 93.2 fl (80-100); Mean Platelet Volume 11.2 fl (7.4-10.4); Monocytes Absolute Auto 0.4 K/mm3 (0.1-0.6); Monocytes Percent Auto 6.9 % (2.6-8.5); Neutrophils Absolute Auto 4.1 K/mm3 (1.3-6.7); Neutrophils Percent Auto 74.2 % (45.5-73.1); Platelet Count Result 300 k/mm3 (150-375); Red Blood Count 4.28 M/mm3 (4.2-5.4); Red Cell Distribution Width 13.4 % (11.5-14.5); White Blood Count 5.5 K/mm3 (4.5-10.0)
[2020-05-23 08:50] LABS: Add Urine Microscopic? NO; Appearance Urine Clear (Clear); Bilirubin Urine Negative (Negative); Blood Urine Negative (Negative); Color Urine Colorless (Yellow); Glucose Urine UA Negative (Negative); Ketones Urine Negative (Negative); Leukocyte Esterase Ur Negative LEU/UL (Negative); Nitrate Urine Negative (Negative); Protein Urine Negative (Negative); Specific Grav Ur 1.011 (1.001-1.035); Urobilinogen Urine Negative mg/dL (<2.0)
[2020-05-23 09:00] LABS: Alanine Aminotransferase 15 U/L (4-35); Albumin Level 4.5 g/dL (3.5-5.1); Alkaline Phosphatase 66 U/L (38-126); Anion Gap 4 mmol/L (8-16); Aspartate Amino Transferase 26 U/L (14-36); Bilirubin,Total 0.3 mg/dL (0.2-1.3); Blood Urea Nitrogen 11 mg/dL (7-17); Calcium 9.7 mg/dL (8.4-10.2); Carbon Dioxide 33 mmol/L (22-30); Chloride 105 mmol/L (98-107); Estimated CRCL calculation 68 ml/min; Estimated Glomerular Filt Rate > 60; Glucose 108 mg/dL (65-105); Lipase 166 U/L (23-300); Potassium 3.9 mmol/L (3.4-5.0); Sodium 142 mmol/L (137-145)
[2020-05-23 09:01] LABS: RBC Urine 0-2 /hpf (0-2); Squamous Epithelial Cell Urine Few /hpf (Few); WBC Urine 0-3 /hpf
[2020-05-23] MEDS: ONDANSETRON INJ 4 MG/2 ML VIAL IV PUSH (09:30)
[2020-05-23] MEDS: FAMOTIDINE 20 MG/2 ML VIAL IV PUSH (09:30)
[2020-05-23] MEDS: MORPHINE SULFATE (*CRX) 4 MG/ML INJ IV PUSH (09:30)
[2020-05-23] MEDS: diphenhydrAMINE HCl INJ 50 MG/ML VIAL 25 MG IV PUSH (09:30)
[2020-05-23] MEDS: SODIUM CHLORIDE 0.9% IV 1,000 ML 999 ML IV CONT (09:30)
[2020-05-23 09:45] LABS: Prothrombin Time 12.6 Seconds (11.1-14.7)
[2020-05-23 09:46] LABS: Partial Thromboplastin Time 26.7 SECONDS (22.3-36.8)
[2020-05-23 09:56] LABS: Troponin I < 0.012 ng/mL (0.000-0.034)
--- NOTE | 2020-05-23 10:29 | ECG_ITS ---
Measurements Intervals [place] Rate: 61 P: 56 OR: 136 QRS: 36 QRSD: 86 T: 53 QT: 414 QTc: 420 Interpretive Statements SINUS RHYTHM SUPRAVENTRICULAR TRIGEMINY BASELINE ARTIFACT- V4 ABNORMAL ECG Electronically Signed On 05-23-2020 12:17:51 CDT by Cabrera Moya D.O.
== END 2020-05-23 13:14 | disposition home or self-care (01) ==
PROVIDERS: Emergency Provider Emergency Medicine; PCP Family Medicine
DX: R10.30 Lower abdominal pain, unspecified (principal); R11.2 Nausea with vomiting, unspecified; F17.210 Nicotine dependence, cigarettes, uncomplicated; F41.9 Anxiety disorder, unspecified; F32.9 Major depressive disorder, single episode, unspecified; M19.90 Unspecified osteoarthritis, unspecified site; I48.91 Unspecified atrial fibrillation; K57.90 Diverticulosis of intestine, part unspecified, without perforation or abscess without bleeding; K21.9 Gastro-esophageal reflux disease without esophagitis
CPT/HCPCS: 36415; 71046; 74177; 80053; 81003; 81025; 83690; 84484; 85025; 85610; 85730; 93005; 96361; 96374; 96375; 99284; J1200; J2270; J2405; J7030; Q9967

== ENCOUNTER 2020-05-27 17:25 | Inpatient (IN) | payer MEDICARE, MEDICAID, SELFPAY ==
--- NOTE | ~2020-05-27 | CT_ITS ---
EXAMINATION: CT brain wo con INDICATION: Dizziness COMPARISON: None TECHNIQUE: Standard unenhanced head CT. The dose-length product (DLP) was 605.33 mGy-cm. The mA was a djusted according to patient size. Iterative reconstruction technique was employed. FINDINGS: There is no intracranial hemorrhage, acute infarction, or abnormal mass lesion. The ventric les are normal. There is no abnormal mass effect or midline shift. The foote-white matter differentiat ion is normal. The basal cisterns are patent. The orbits are normal. The patient is edentulous. The p aranasal sinuses, mastoids and calvarium are normal. IMPRESSION: 1. No acute intracranial abnormality. Reviewed, dictated and finalized at location A.
--- NOTE | ~2020-05-27 | XR_ITS ---
EXAMINATION: XR chest 2V DATE: 05/27/2020 19:09 INDICATION: Nausea vomiting and diarrhea, lightheadedness TECHNIQUE: PA and lateral views of the chest are obtained. COMPARISON: 05/23/2020 FINDINGS: The lungs are free of acute opacities. There is no pleural effusion or pneumothorax. The ca rdiomediastinal silhouette is normal. Cholecystectomy clips are noted at the right upper quadrant. IMPRESSION: 1. No acute cardiopulmonary abnormality. Reviewed, dictated and finalized at location A.
--- NOTE | ~2020-05-27 | US_ITS ---
EXAMINATION: US right upper quadrant EXAM DATE: 05/28/2020 11:14 INDICATION: Elevated liver function tests. TECHNIQUE: Multiple grayscale and Doppler images of the abdomen right upper quadrant were obtained (b y a technologist who performed the scan) and subsequently reviewed. There is no prior study for mariann bedolla. FINDINGS: The pancreatic head and body are normal in appearance. The pancreatic tail is not visualized. The l iver has normal echogenicity and contour. There are no focal liver lesions identified. There is no evidence of intrahepatic biliary duct dilation. Portal venous flow was seen in the hepatopedal, nor mal direction and has normal Doppler waveform. No right-sided hydronephrosis. Common bile duct measures 2 mm, which is normal. Cholecystectomy. IMPRESSION: 1. Unremarkable abdominal ultrasound exam. Reviewed, dictated and finalized at location A.
[2020-05-27 17:43] VITALS: BP 114/73; PULSE 76; RESP 18; TEMP 36.8; O2SAT 98
[2020-05-27 18:11] LABS: Basophils Percent Auto 0.4 % (0.2-1.2); Eosinophils Absolute Auto 0.1 K/mm3 (0-0.3); Eosinophils Percent Auto 1.2 % (0-4.4); Hemoglobin 13.3 g/dL (12.0-15.0); Immature Granulocyte Absolute 0.01 K/mm3 (0.00-0.031); Immature Granulocyte Percent A 0.2 % (0-0.5); Lymphocytes Absolute Auto 1.46 K/mm3 (0.9-3.2); Lymphocytes Percent Auto 28.2 % (18.3-44.2); Mean Corpuscular HGB Conc 33.3 g/dl (32-36); Mean Corpuscular Hemoglobin 29.8 pg (26-34); Mean Corpuscular Volume 89.7 fl (80-100); Mean Platelet Volume 10.8 fl (7.4-10.4); Monocytes Absolute Auto 0.7 K/mm3 (0.1-0.6); Monocytes Percent Auto 14.3 % (2.6-8.5); Neutrophils Absolute Auto 2.9 K/mm3 (1.3-6.7); Neutrophils Percent Auto 55.7 % (45.5-73.1); Platelet Count Result 324 k/mm3 (150-375); Red Blood Count 4.46 M/mm3 (4.2-5.4); Red Cell Distribution Width 12.9 % (11.5-14.5); White Blood Count 5.2 K/mm3 (4.5-10.0)
[2020-05-27 18:25] LABS: Alanine Aminotransferase 50 U/L (4-35); Albumin Level 5.1 g/dL (3.5-5.1); Alkaline Phosphatase 132 U/L (38-126); Anion Gap 11 mmol/L (8-16); Aspartate Amino Transferase 30 U/L (14-36); Bilirubin,Total 0.3 mg/dL (0.2-1.3); Blood Urea Nitrogen 7 mg/dL (7-17); Calcium 9.8 mg/dL (8.4-10.2); Carbon Dioxide 29 mmol/L (22-30); Chloride 104 mmol/L (98-107); Estimated CRCL calculation 60 ml/min; Estimated Glomerular Filt Rate > 60; Glucose 96 mg/dL (65-105); Lipase 249 U/L (23-300); Potassium 3.7 mmol/L (3.4-5.0); Sodium 144 mmol/L (137-145)
--- NOTE | 2020-05-27 18:50 | ECG_ITS ---
Measurements Intervals [place] Rate: 65 P: 74 IA: 130 QRS: 70 QRSD: 92 T: 138 QT: 402 QTc: 421 Interpretive Statements SINUS RHYTHM SUPRAVENTRICULAR TRIGEMINY BORDERLINE T WAVE ABNORMALITY- HIGH LATERAL LEADS BASELINE ARTIFACT- I, II, III, AVR, AVL, AVF, V2 ABNORMAL ECG Electronically Signed On 05-28-2020 6:41:18 CDT by Cabrera Moya D.O.
--- NOTE | 2020-05-27 19:15 | ED.NAVMDI ---
HPI - Nausea/Vomiting/Diarrhea General Chief complaint: Nausea/Vomiting/Diarrhea Stated complaint: Multiple Complaints Time Seen by Provider: 05/27/20 18:30 Source: patient Mode of arrival: ambulatory Limitations: no limitations History of Present Illness HPI Narrative: This is a 50 year old female that presents to the ER for nausea and upper abdominal discomfort x 1 week. Reports constant nausea. Reports episodes of vomiting. Reports she has not been able to eat much and is losing weight. Dr. Salmeron is her GI doctor. She recently had an endoscopy that was normal. Also reports one episode of diarrhea. Denies fever, or dysuria. Related Data Home Medications Medication Instructions Recorded Confirmed gabapentin 100 mg PO TID PRN 02/03/20 03/27/20 midodrine 5 mg PO BID 02/03/20 03/27/20 venlafaxine [Effexor XR] 150 mg PO DAILY 02/03/20 02/03/20 buspirone 5 mg PO BID 03/27/20 03/27/20 dicyclomine 20 mg PO QID 03/27/20 03/27/20 Allergies Allergy/AdvReac Type Severity Reaction Status Date / Time prochlorperazine AdvReac Severe Confusion Verified 05/27/20 17:49 metoclopramide [From Reglan] AdvReac Intermediate anxiety Verified 05/27/20 17:49 azithromycin AdvReac Unknown STOMACH Verified 05/27/20 17:49 UPSET Review of Systems Review of Systems: Narrative: CONSTITUTIONAL: Denies fever GASTROINTESTINAL: Reports abdominal pain, nausea, vomiting, and diarrhea. GENITOURINARY: Denies dysuria or hematuria. All systems reviewed & are unremarkable except as noted in HPI and below PMFSH Social History Social History Smoking packs per day: 0.5 Smoking cigarettes per day: 10.0 Years smoked: 10 Smoking pack-years: 5.00 Smoking status: Former smoker Tobacco type: cigarettes Alcohol intake: current Drinks per week: 1 Substance use: current Substance use type: marijuana Last use: 01-02-20 Gender identity (if verbalized by the patient): Female Spiritual care concerns: No Exam Narrative: Exam Narrative: GENERAL: Well-appearing, well-nourished, and in no acute distress. HEAD: Normocephalic, atraumatic. EYES: PERRLA and EOMI. ENT: Nares clear, no rhinorrhea or epistaxis. Mucous membranes moist. Oropharynx without tonsillar hypertrophy exudate or other lesions. Bilateral TMs pearly foote non-bulging NECK: Supple. No adenopathy or masses. CHEST: Clear to auscultation. No respiratory distress. No wheezes rales or rhonchi HEART: Regular rate and rhythm. No murmur heard. Normal peripheral pulses. ABDOMEN: Soft, nondistended, normal active bowel sounds. Mild tenderness to palpation in the epigastrium, without guarding EXTREMITIES: Normal range of motion. No edema. SKIN: Warm, dry, no rash. NEURO: No focal deficits. Alert and oriented x3. PSYCH: Normal mood and affect Course Consultations Consultation #1: Spoke with hospitalist about patient and work-up who accepts admission Date: 05/27/20 Time: 22:54 Consultation #2: Spoke with Dr. Salmeron who will consult Date: 05/27/20 Time: 22:54 Vital Signs Vital signs: Vital Signs Temperature 98.3 F 05/27/20 17:43 Pulse Rate 76 05/27/20 17:43 Respiratory Rate 18 05/27/20 17:43 Blood Pressure 114/73 05/27/20 17:43 Pulse Oximetry 98 05/27/20 17:43 Temperature 98.3 F 05/27/20 17:43 Pulse Rate 78 05/27/20 22:41 Respiratory Rate 14 05/27/20 22:41 Blood Pressure 136/88 05/27/20 22:41 Pulse Oximetry 98 05/27/20 22:41 MDM - Nausea/Vomiting/Diarrhea MDM Narrative Medical decision making narrative: Patient presents the emergency department for upper abdominal pain, nausea and vomiting. Patient with history of chronic abdominal pain. Sees Dr. Mathur. Recently had an EGD a couple of months ago that was normal. She was seen in the ED for similar complaints 4 days ago with a normal CT scan of her abdomen and pelvis. CBC was without acute findings. Metabolic panel with mild transaminitis
[2020-05-27 19:18] LABS: Troponin I < 0.012 ng/mL (0.000-0.034)
[2020-05-27] MEDS: LORazepam INJ (*CRX) 2 MG/ML VIAL 1 MG IV PUSH (19:22)
[2020-05-27] MEDS: SODIUM CHLORIDE 0.9% IV 1,000 ML 999 ML IV CONT (19:22)
[2020-05-27 19:42] LABS: Add Urine Microscopic? NO; Appearance Urine Clear (Clear); Bilirubin Urine Negative (Negative); Blood Urine Negative (Negative); Color Urine Colorless (Yellow); Glucose Urine UA Negative (Negative); Ketones Urine Negative (Negative); Leukocyte Esterase Ur Negative LEU/UL (Negative); Nitrate Urine Negative (Negative); Protein Urine Negative (Negative); Urobilinogen Urine Negative mg/dL (<2.0)
[2020-05-27 19:48] LABS: Specific Grav Ur 1.003 (1.001-1.035)
[2020-05-27 21:39] VITALS: BP 112/80; BP 129/81; BP 158/73; PULSE 49; PULSE 82
[2020-05-27 22:41] VITALS: BP 136/88; PULSE 78; RESP 14; O2SAT 98
[2020-05-27] MEDS: ONDANSETRON INJ 4 MG/2 ML VIAL IV PUSH (22:58)
--- NOTE | 2020-05-27 23:38 | PM.IMHP ---
H&P: HPI History of Present Illness Date/Time: 05/27/20 23:38 Chief complaint: Intractable nausea and vomiting Narrative: This is a 50 year old female with known history of celiac disease and just seen in the ER four days ago when she presented with a complaint of 11 days of abdominal cramping pain, nausea and vomiting as well as loose stools. Tonight she returned to the hospital with ongoing epigastric cramping pain, nausea and vomiting. She had #3 episodes of loose stools today which she described as water like. She denies any recent antibiotic use. She also denies any recent fevers, chills, dysuria, hematuria, or focal deficits. She believes that she has had a small amount of rectal bleeding in her diarrhea. The patient complains that she can't keep any food or fluid down. ER provider attempted a fluid challenge but the patient couldn't tolerate it. The patient just underwent a CT abd/pelvix four days ago when she was seen in the ER for the same complaint which did not demonstrate any pathology. Her last EGD was in August of this year and was unremarkable according to the patient. Her last Colonoscopy appears to have been earlier this month for rectal bleeding and demonstrated internal hemorrhoids and a polyp. She was last hospitalized in January of this year and GI specialist believed her chronic abdominal pain was due to GERD at that time. 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 No other complaints. Review of Systems Review of Systems: All systems reviewed & are unremarkable except as noted in HPI and below PMFSH Past Medical History Medical History Anxiety and depression Arthritis Atrial fibrillation Celiac disease Diverticulosis GERD (gastroesophageal reflux disease) Migraine headache Neuropathy Surgical History Surgical History History of delivery History of cholecystectomy History of Gary fundoplication History of tubal ligation Family History Family History Mother Family history of elevated blood lipids Family history of arthritis Sibling Family history of arthritis Grandparent Cerebrovascular accident Family history of cardiovascular disease Hypertension Diabetes mellitus Social History Social History Smoking packs per day: 0.5 Smoking cigarettes per day: 10.0 Years smoked: 10 Smoking pack-years: 5.00 Smoking status: Former smoker Tobacco type: cigarettes Alcohol intake: never Substance use: current Substance use type: marijuana Last use: 05/21/20 Gender identity (if verbalized by the patient): Female Spiritual care concerns: No Meds Home Medications and Allergies Home Medications Medication Instructions Recorded Confirmed Type pantoprazole 40 mg PO Q12HR #60 tablet 02/06/20 05/28/20 Rx buspirone 10 mg PO BID 03/27/20 05/28/20 History famotidine [Pepcid] 20 mg PO HS #30 tablet 04/17/20 05/28/20 Rx dicyclomine 10 mg PO BID 3 Days #6 cap 05/23/20 05/28/20 Rx ondansetron HCl [Zofran] 4 mg PO Q8H #14 tablet 05/23/20 05/28/20 Rx alum-mag hydroxide-simeth [Mylanta 10 ml PO QID PRN 05/28/20 05/28/20 History Maximum Strength] sertraline 50 mg PO DAILY 05/28/20 05/28/20 History simethicone [Gas-X Extra Strength] 125 mg PO QID PRN 05/28/20 05/28/20 History sumatriptan succinate 100 mg PO DAILY PRN 05/28/20 05/28/20 History Allergies Allergy/AdvReac Type Severity Reaction Status Date / Time prochlorperazine AdvReac Severe Confusion Verified 05/27/20 17:49 metoclopramide [From Reglan] AdvReac Intermediate anxiety Verified 05/27/20 17:49 azithromycin AdvReac Unknown STOMACH Verified 05/27/20 17:49 UPSET Vital Signs Vital
[2020-05-28] VITALS (7 sets, daily range): BP systolic 111–140; BP diastolic 65–92; PULSE 47–76; RESP 16–20; TEMP 36.4–36.8; O2SAT 95–100; BMI 20.7; BMI 29.0; BMI 20.5
--- NOTE | 2020-05-28 00:13 | ADMGEN ---
This patient, Sarahy Gill, was admitted to 3 [facility] Surg Room 312-01. Patient/family oriented to hospital policies and general routines including ID bracelet, bed and alarms, visiting hours, pain management, procedures, bathroom and other care routines, personal items, smoking policy, room service/diet, and visiting hours. Valuables list has been completed. Information on how to activate the Rapid Response Team has been discussed. Patient/Family are encouraged to report perceived risks to care and to ask questions if they do not understand what they are told or what they should do.
[2020-05-28] MEDS: SODIUM CHLORIDE 0.9% IV 1,000 ML 125 ML IV CONT ×3 (00:17→16:25)
[2020-05-28] MEDS: ONDANSETRON INJ 4 MG/2 ML VIAL IV PUSH ×3 (03:06→19:18)
[2020-05-28 06:36] LABS: Basophils Percent Auto 0.4 % (0.2-1.2); Eosinophils Absolute Auto 0.1 K/mm3 (0-0.3); Eosinophils Percent Auto 1.9 % (0-4.4); Hematocrit 33.7 % (37.0-47.0); Hemoglobin 10.9 g/dL (12.0-15.0); Lymphocytes Absolute Auto 1.77 K/mm3 (0.9-3.2); Lymphocytes Percent Auto 36.9 % (18.3-44.2); Mean Corpuscular HGB Conc 32.3 g/dl (32-36); Mean Corpuscular Hemoglobin 29.5 pg (26-34); Mean Corpuscular Volume 91.3 fl (80-100); Mean Platelet Volume 10.8 fl (7.4-10.4); Monocytes Absolute Auto 0.7 K/mm3 (0.1-0.6); Neutrophils Absolute Auto 2.2 K/mm3 (1.3-6.7); Neutrophils Percent Auto 45.8 % (45.5-73.1); Platelet Count Result 259 k/mm3 (150-375); Red Blood Count 3.69 M/mm3 (4.2-5.4); White Blood Count 4.8 K/mm3 (4.5-10.0)
[2020-05-28 06:59] LABS: Anion Gap 6 mmol/L (8-16); Blood Urea Nitrogen 9 mg/dL (7-17); Calcium 8.9 mg/dL (8.4-10.2); Carbon Dioxide 29 mmol/L (22-30); Chloride 108 mmol/L (98-107); Estimated CRCL calculation 90 ml/min; Estimated Glomerular Filt Rate > 60; Glucose 95 mg/dL (65-105); Potassium 3.8 mmol/L (3.4-5.0); Sodium 143 mmol/L (137-145)
[2020-05-28] MEDS: PANTOPRAZOLE SODIUM IV 40 MG VIAL IV PUSH (08:24)
--- NOTE | 2020-05-28 08:56 | WPDGICN ---
Assessment and Plan Assessment and plan (1) Intractable nausea and vomiting: Code(s): R11.2 - Nausea with vomiting, unspecified Status: Acute Assessment and Plan: Patient has recurrent intractable nausea vomiting. Extensive workup is essentially unremarkable. This somewhat suspicious for cyclical vomiting syndrome. This correlates with her marijuana use. I cannot exclude a functional etiology. This may be related to her known anxiety and depression. Plan is for intravenous Reglan. Consider medications for anxiety depression. (2) History of cholecystectomy: Code(s): Z90.49 - Acquired absence of other specified parts of digestive tract Status: Acute Assessment and Plan: Because of previous cholecystectomy mild elevation of the bile ducts on CT scan is normal an expected finding. (3) GERD (gastroesophageal reflux disease): Qualifiers: Esophagitis presence: esophagitis presence not specified Qualified Code(s): K21.9 - Gastro-esophageal reflux disease without esophagitis Code(s): K21.9 - Gastro-esophageal reflux disease without esophagitis Status: Chronic Assessment and Plan: Patient has an established history of GE reflux. Previously treated with Gary fundoplication. Recent x-rays including EGD of shown that fundoplication remains intact. Continued use of pantoprazole is suggested. Pepcid may be discontinued. (4) History of Gary fundoplication: Code(s): Z98.890 - Other specified postprocedural states Status: Acute GI Consult Note Consult date/time: 05/28/20 08:56 HPI: Sarahy Gill is a 50 year old female Seen in evaluation at the request of the hospitalist service. Patient known to my service she has a history of ongoing nausea and vomiting. Has presented multiple times to the emergency room. Was admitted last evening because of ongoing symptoms. Extensive GI workup in the past been relatively noncontributory. Patient does have a history of acid reflux. She has a history of a fundoplication. Recent EGD revealed that this was intact with no other lesions identified. She has had intermittent diarrhea colonoscopy performed 1 month ago revealed benign colon polyp. No other significant pathology identified. Several CAT scans in the emergency room have been unremarkable. There is evidence for previous cholecystectomy. A small-bowel follow-through recently was unremarkable as well. Patient does have ongoing marijuana use. Suggesting cyclical vomiting syndrome. She has been treated in the past for anxiety and depression. Previous surgeries include cholecystectomy and Gary fundoplication. Current medication use has not been helpful including liquid antacids, BuSpar, Bentyl, Pepcid, Protonix, Zofran, sertraline, Gas-X, Review of Systems Review of Systems: All systems reviewed & are unremarkable except as noted in HPI and below PMFSH Past Medical History Medical History Anxiety and depression Arthritis Atrial fibrillation Celiac disease Diverticulosis GERD (gastroesophageal reflux disease) Migraine headache Neuropathy Surgical History Surgical History History of delivery History of cholecystectomy History of Gary fundoplication History of tubal ligation Family History Family History Mother Family history of elevated blood lipids Family history of arthritis Sibling Family history of arthritis Grandparent Cerebrovascular accident Family history of cardiovascular disease Hypertension Diabetes mellitus Social History Social History Smoking packs per day: 0.5 Smoking cigarettes per day: 10.0 Years smoked: 10 Smoking pack-years: 5.00 Smoking status: Former smoker Tobacco type: ci
[2020-05-28 10:14] LABS: Hepatitis B Surface Antigen Negative (Negative)
[2020-05-28 10:19] LABS: HAV RESULT Negative (Negative); Hepatitis B Core IgM Result Negative (Negative)
[2020-05-28 10:31] LABS: Hepatitis C Virus Antibody Negative (Negative)
--- NOTE | 2020-05-28 11:00 | PC.NURSE ---
To Radiology per [w/c for us of rt upper quad in no apparent distress. ]
--- NOTE | 2020-05-28 12:37 | PM.IMPN ---
Progress Note: A&P Assessment and Plan (1) Intractable nausea and vomiting: Code(s): R11.2 - Nausea with vomiting, unspecified Status: Acute Assessment and Plan: Improving. GI is following. She has had an extensive workup. EGD 01/2020 was unremarkable with intact Gary fundiplocation and normal mucosa. Colonoscopy 03/2020 demonstrated two tubular adenomas and internal hemorrhoids. 4 CT abd/pelvis since 01/2020 were unremarkable with most recent 05/23. WBC is normal. LFTs mildly elevated. Continue supportive care with gentle IV hydration and antiemetics as needed. Appreciate GI input. Continue to monitor and advance diet to clear liquids for today. (2) Chronic abdominal pain: Code(s): R10.9 - Unspecified abdominal pain; G89.29 - Other chronic pain Status: Chronic Assessment and Plan: Likely multifactorial secondary to Celiac disease, GERD, IBS. Continue dicyclomine and simethicone. Continue supportive care with analgesics PRN. (3) Chronic diarrhea: Code(s): K52.9 - Noninfective gastroenteritis and colitis, unspecified Status: Acute Assessment and Plan: Continue supportive care. Continue dicyclomine for IBS. Continue GI recommendations. (4) GERD (gastroesophageal reflux disease): Qualifiers: Esophagitis presence: esophagitis presence not specified Qualified Code(s): K21.9 - Gastro-esophageal reflux disease without esophagitis Code(s): K21.9 - Gastro-esophageal reflux disease without esophagitis Status: Chronic Assessment and Plan: Continue PO protonix. (5) Anxiety and depression: Code(s): F41.9 - Anxiety disorder, unspecified; F32.9 - Major depressive disorder, single episode, unspecified Status: Chronic Assessment and Plan: Chronic with no acute issues. Continue buspirone and sertraline. (6) Hepatic steatosis: Code(s): K76.0 - Fatty (change of) liver, not elsewhere classified Status: Chronic Assessment and Plan: Visualized on MRI 02/05/20. LFTs are elevated. Hepatitis panel negative and RUQ US unremarkable. Repeat CMP tomorrow. Subjective Date/time seen: 05/28/20 12:37 Mrs. Gill is a 50 y.o. female with PMH significant for celiac disease, GERD with hiatal hernia s/p Gary fundoplicaton, anxiety, depression, migraines, and recurrent nausea, vomiting, abdominal pain who is seen in follow-up for recurrent nausea, vomiting, and abdominal discomfort. She is feeling better. She requests clear liquid diet and to resume her home medications. She was able to keep apple juice down with mild dyspepsia. She notes mild nausea but no vomiting today. She has diffuse, mild abdominal discomfort which is better today. She reports a large volume of loose stool yesterday but no further diarrhea today. She denies chest pain, shortness of breath, and cough. She reports that she is occasionally chilled but denies subjective fevers. She has no urinary complaints. She reports occasional dizziness and denies headaches and lightheadedness. She reports occasional bright red blood when she wipes and had a colonoscopy 03/2020 showing internal hemorrhoids and two polyps (1 in sigmoid colon and 1 in descending colon) with pathology demonstrating tubular adenomas. Review of Systems Review of Systems: All systems reviewed & are unremarkable except as noted in HPI and below Exam Narrative: Exam Narrative: General: Well-developed and well-nourished 50 y.o. female sitting up in bed, comfortable and in no acute distress. HEENT: Normocephalic and atraumatic. Scleare anicteric. Conjunctivae and lids without exudate or injection. EOMI. Oral mucosa tacky. Neck: Supple without lymphadenopathy or masses. Cardiac: Regular rate and rhythm. S1 and S2 normal. Lungs: Effort normal. Lungs clear to auscultation bilaterally without wheezes, rhonchi, or rales. Abdomen:Bowel sounds are normoactive. Abdomen is soft, n
[2020-05-28] MEDS: busPIRone HCL 5 MG TABLET 10 MG PO (16:26)
[2020-05-28] MEDS: DICYCLOMINE HCL 10 MG CAPSULE PO (16:26)
[2020-05-28] MEDS: PANTOPRAZOLE 40 MG TABLET PO (18:38)
[2020-05-28] MEDS: SIMETHICONE 125 MG CHEW TAB PO (18:38)
[2020-05-28] MEDS: FAMOTIDINE 20 MG TABLET PO (20:14)
[2020-05-29] MEDS: SODIUM CHLORIDE 0.9% IV 1,000 ML 125 ML IV CONT (01:15)
[2020-05-29] MEDS: ONDANSETRON INJ 4 MG/2 ML VIAL IV PUSH ×4 (04:57→23:13)
[2020-05-29 06:00] VITALS: BP 121/78; PULSE 58; RESP 16; TEMP 36.8; O2SAT 99
[2020-05-29 06:48] LABS: Hematocrit 33.2 % (37.0-47.0); Hemoglobin 10.8 g/dL (12.0-15.0); Mean Corpuscular HGB Conc 32.5 g/dl (32-36); Mean Corpuscular Hemoglobin 30.3 pg (26-34); Mean Platelet Volume 11.2 fl (7.4-10.4); Platelet Count Result 245 k/mm3 (150-375); Red Blood Count 3.57 M/mm3 (4.2-5.4); White Blood Count 3.8 K/mm3 (4.5-10.0)
[2020-05-29 06:59] LABS: Alanine Aminotransferase 31 U/L (4-35); Albumin Level 3.5 g/dL (3.5-5.1); Alkaline Phosphatase 90 U/L (38-126); Anion Gap 6 mmol/L (8-16); Aspartate Amino Transferase 26 U/L (14-36); Bilirubin,Total 0.4 mg/dL (0.2-1.3); Blood Urea Nitrogen 7 mg/dL (7-17); Calcium 8.9 mg/dL (8.4-10.2); Carbon Dioxide 28 mmol/L (22-30); Chloride 106 mmol/L (98-107); Estimated CRCL calculation 76 ml/min; Estimated Glomerular Filt Rate > 60; Glucose 93 mg/dL (65-105); Potassium 3.6 mmol/L (3.4-5.0); Sodium 140 mmol/L (137-145)
[2020-05-29 08:00] VITALS: PULSE 58; RESP 16; O2SAT 99
[2020-05-29] MEDS: SODIUM CHLORIDE 0.9% IV 1,000 ML 60 ML IV CONT (09:27)
[2020-05-29] MEDS: DICYCLOMINE HCL 10 MG CAPSULE PO ×2 (09:28→16:43)
[2020-05-29] MEDS: SERTRALINE HCL 50 MG TABLET PO (09:28)
[2020-05-29] MEDS: SIMETHICONE 125 MG CHEW TAB PO (09:28)
[2020-05-29] MEDS: busPIRone HCL 5 MG TABLET 10 MG PO ×2 (09:28→16:43)
[2020-05-29] MEDS: PANTOPRAZOLE 40 MG TABLET PO ×2 (09:28→16:43)
--- NOTE | 2020-05-29 09:48 | WPDGIPROGNO ---
Progress Note: A&P Additional Plan Patient continues to complain of diarrhea. She states she has burning in the epigastric area. Still feels nauseated. Physical exam reveals her to be alert. Vital signs stable. She is afebrile. Anicteric. Lungs are clear. Heart without murmur. Abdomen bowel sounds present soft nontender with no organomegaly. Impression 1. Cyclical vomiting syndrome appears to be most likely in this patient. Plan is for supportive care. IV rehydration may help as she was dehydrated at the time of admission. She does give a history of marijuana use which likely contributes to this diagnosis. 2. Epigastric burning pain. Patient remains on IV Protonix with Pepcid supplement. Recent EGD was unremarkable. Previous fundoplication appears intact. Supportive care advised. 3. History of GE reflux. She has a previous fundoplication. That appears to be intact. We will continue proton pump inhibitors. 4. Diarrhea. Stool cultures have been ordered. Await these findings before any specific therapy. Plan is for rehydration. Supportive care. Patient is allergic to Reglan so this was discontinued. Will advance diet as tolerated. We may need to consider there is a functional component to her complaints. She does give a history of anxiety depression dose of these medications may need to be adjusted. Subjective Date/time seen: 05/29/20 09:48 Objective Data Vital Signs Vital Signs: Vital Signs - 24 hr 05/28/20 14:00 05/28/20 22:00 05/29/20 06:00 Temperature 97.6 F 98.1 F 98.3 F Pulse Rate 72 55 L 58 L Respiratory Rate 20 16 16 Blood Pressure 111/72 124/65 121/78 Pulse Oximetry 100 99 99 Intake/Output Intake/Output: Intake & Output 05/26/20 05/27/20 05/28/20 05/29/20 23:59 23:59 23:59 23:59 Intake Total 1000 3920 2100 Output Total 850 Balance 1000 3920 1250 Meds/Results Medications: Active Medications Generic Name Dose Route Start Last Admin Trade Name Freq PRN Reason Stop Dose Admin Buspirone HCl 10 mg 05/28/20 17:00 05/29/20 09:28 Buspar PO 10 mg BID MERON Administration Dicyclomine HCl 10 mg 05/28/20 17:00 05/29/20 09:28 Bentyl Capsule PO 10 mg BID MERON Administration Famotidine 20 mg 05/28/20 21:00 05/28/20 20:14 Pepcid PO 20 mg HS MERON Administration Sodium Chloride 1,000 mls @ 60 mls/hr 05/27/20 22:35 05/29/20 09:27 Normal Saline Iv IV CONT 60 mls/hr .[id number] MERON Administration Pantoprazole Sodium 40 mg 05/28/20 17:00 05/29/20 09:28 Protonix PO 40 mg BID MERON Administration Sertraline HCl 50 mg 05/29/20 09:00 05/29/20 09:28 Zoloft PO 50 mg DAILY MERON Administration Simethicone 125 mg 05/28/20 12:37 05/29/20 09:28 Phazyme PO 125 mg QID PRN Administration Abdominal Discomfort Sumatriptan Succinate 100 mg 05/28/20 12:37 Imitrex PO DAILY PRN Migraine headache Radiology Results: ITS Impressions Head CT 05/27/20 19:16 IMPRESSION: 1. No acute intracranial abnormality. Chest X-Ray 05/27/20 19:34 IMPRESSION: 1. No acute cardiopulmonary abnormality. Upper Quadrant Ultrasound 05/28/20 11:19 IMPRESSION: 1. Unremarkable abdominal ultrasound exam. Labs Labs: Laboratory Results - last 24 hr 05/28/20 05/29/20 05/29/20 08:47 06:16 06:16 WBC 3.8 L RBC 3.57 L Hgb 10.8 L Hct 33.2 L MCV 93.0 MCH 30.3 MCHC 32.5 RDW 13.0 Plt Count 245 MPV 11.2 H Sodium 140 Potassium 3.6 Chloride 106 Carbon Dioxide 28 Anion Gap 6 L BUN 7 Creatinine 0.70 Estim Creat Clear Calc 76 Estimated GFR > 60 Glucose 93 Calcium 8.9 Total Bilirubin 0.4 AST 26 ALT 31 Alkaline Phosphatase 90 Total Protein 6.0 L Albumin 3.5 Hepatitis A IgM Ab Negative Hep Bs Antigen Negative Hep B Core IgM Ab Negative Hepatitis C Ab Screen Negative
[2020-05-29 14:00] VITALS: BP 126/71; PULSE 64; RESP 16; TEMP 36.9; O2SAT 99
--- NOTE | 2020-05-29 14:49 | PM.IMPN ---
Progress Note: A&P Assessment and Plan (1) Intractable nausea and vomiting: Code(s): R11.2 - Nausea with vomiting, unspecified Status: Acute Assessment and Plan: Improving. GI is following. She has had an extensive workup. EGD 01/2020 was unremarkable with intact Gary fundiplocation and normal mucosa. Colonoscopy 03/2020 demonstrated two tubular adenomas and internal hemorrhoids. 4 CT abd/pelvis since 01/2020 were unremarkable with most recent 05/23. WBC is normal. LFTs mildly elevated. GI recommends continued supportive care with gentle IV hydration and antiemetics as needed. He believes it could be related to cyclic vomiting syndrome from marijuana use. Continue to monitor and advance diet to clear liquids for today. (2) Chronic abdominal pain: Code(s): R10.9 - Unspecified abdominal pain; G89.29 - Other chronic pain Status: Chronic Assessment and Plan: Likely multifactorial secondary to Celiac disease, GERD, IBS, recurrent nausea, vomiting. Continue PPI, dicyclomine and simethicone. Continue supportive care with analgesics PRN. (3) Chronic diarrhea: Code(s): K52.9 - Noninfective gastroenteritis and colitis, unspecified Status: Acute Assessment and Plan: Continue supportive care. Continue dicyclomine for IBS. Continue GI recommendations. (4) GERD (gastroesophageal reflux disease): Qualifiers: Esophagitis presence: esophagitis presence not specified Qualified Code(s): K21.9 - Gastro-esophageal reflux disease without esophagitis Code(s): K21.9 - Gastro-esophageal reflux disease without esophagitis Status: Chronic Assessment and Plan: Continue PO protonix. (5) Anxiety and depression: Code(s): F41.9 - Anxiety disorder, unspecified; F32.9 - Major depressive disorder, single episode, unspecified Status: Chronic Assessment and Plan: Chronic with no acute issues. Continue buspirone and sertraline. (6) Hepatic steatosis: Code(s): K76.0 - Fatty (change of) liver, not elsewhere classified Status: Chronic Assessment and Plan: Visualized on MRI 02/05/20. LFTs are elevated. Hepatitis panel negative and RUQ US unremarkable. Liver functions normalized. Time Spent With Patient Time with patient: 25 - 35 minutes Subjective Date/time seen: 05/29/20 14:49 Interval history: Date of service 05/29/2020: Patient states she is feeling better today but became nauseous after taking her morning medications. She is otherwise tolerating the clear liquid diet well at this time which is some abdominal cramping and slight nausea. She has not vomited in last few days. She denies a bowel movement since arrival. She reports intermittent chest discomfort which she describes as a ?burning? to her epigastric area and sternal chest at times. There is no radiation, no exacerbating or alleviating symptoms. She denies any shortness of breath, cough, fevers, chills, leg swelling, calf pain, lightheadedness code dizziness or any other symptoms at this time. Review of Systems Review of Systems: All systems reviewed & are unremarkable except as noted in HPI and below Exam Narrative: Exam Narrative: General: 50 year-old woman laying flat in bed watching TV. Appears comfortable. In no acute distress. Skin: No jaundice or cyanosis. Good skin turgor. Neck: Full range of motion. Supple. Respiratory: Lungs are clear to auscultation bilaterally. No wheezing, rales or rhonchi. No bony chest wall tenderness. Cardiovascular: The heart has a regular rate and rhythm without murmur. Lower extremities: No lower extremity edema. Distal pulses are easily palpated. No calf tenderness to palpation. Gastrointestinal: Slight tenderness to palpation of epigastric area. No rebound or guarding. The abdomen is otherwise soft and nondistended with active bowel sounds. Psychiatric: Lucid and oriented. Memory intact.
[2020-05-29] MEDS: FAMOTIDINE 20 MG TABLET PO (20:14)
[2020-05-29 20:37] VITALS: BP 132/79; PULSE 60; RESP 12; TEMP 36.5; O2SAT 100
[2020-05-29] MEDS: SUMAtriptan SUCCINATE 25 MG TABLET 100 MG PO (21:29)
--- NOTE | 2020-05-29 23:44 | ECG_ITS ---
Measurements Intervals [place] Rate: 93 P: CO: 0 QRS: 62 QRSD: 77 T: 63 QT: 363 QTc: 453 Interpretive Statements SINUS RHYTHM ATRIAL PREMATURE COMPLEXES BORDERLINE ST ABNORMALITY- ANTEROLATERAL LEADS BASELINE ARTIFACT- I, II, III, AVR, AVL, AVF, V1-V6 BORDERLINE ECG Electronically Signed On 05-30-2020 6:46:23 CDT by Cabrera Moya D.O.
[2020-05-29 23:47] VITALS: BP 137/76; PULSE 62; RESP 16; TEMP 36.1; O2SAT 99
[2020-05-30] MEDS: MAG HYDROX/AL HYDROX/SIMETH 30 ML UDC PO (00:02)
[2020-05-30 00:53] LABS: Troponin I < 0.012 ng/mL (0.000-0.034)
[2020-05-30] MEDS: LORazepam INJ (*CRX) 2 MG/ML VIAL 0.5 MG IV PUSH (00:55)
[2020-05-30] MEDS: SODIUM CHLORIDE 0.9% IV 1,000 ML 60 ML IV CONT (01:44)
[2020-05-30 06:07] VITALS: BP 105/60; PULSE 70; RESP 14; TEMP 37.2; O2SAT 100
[2020-05-30 06:52] LABS: Hematocrit 34.5 % (37.0-47.0); Hemoglobin 11.4 g/dL (12.0-15.0); Mean Corpuscular Hemoglobin 30.2 pg (26-34); Mean Corpuscular Volume 91.3 fl (80-100); Mean Platelet Volume 10.6 fl (7.4-10.4); Platelet Count Result 258 k/mm3 (150-375); Red Blood Count 3.78 M/mm3 (4.2-5.4); White Blood Count 4.8 K/mm3 (4.5-10.0)
[2020-05-30 07:06] LABS: Anion Gap 9 mmol/L (8-16); Blood Urea Nitrogen 7 mg/dL (7-17); Calcium 9.2 mg/dL (8.4-10.2); Carbon Dioxide 29 mmol/L (22-30); Chloride 109 mmol/L (98-107); Estimated CRCL calculation 76 ml/min; Estimated Glomerular Filt Rate > 60; Glucose 89 mg/dL (65-105); Potassium 3.7 mmol/L (3.4-5.0); Sodium 147 mmol/L (137-145)
--- NOTE | 2020-05-30 07:20 | WPDGIPROGNO ---
Progress Note: A&P Additional Plan Patient reports and uncomfortable evening. Apparently she had numbness in her hands after taking headache medication. She states she still had loose stools but not enough for a stool sample. She states abdominal pain has abated. She feels like she could tolerate more solid food. Currently tolerating liquids. Physical exam reveals her to be alert comfortable at rest HEENT exam reveals her to be anicteric. Lungs are clear to auscultation and percussion. Heart is without murmur. Abdominal exam soft nontender with no organomegaly. Impression 1. Cyclic vomiting. Plan to advance diet she appears to be much more settled at the present time. Advance diet as tolerated. 2. Migraine headaches. 3. Numbness in her hands. After headache medication may be secondary to anxiety. 4. Diarrhea. Ongoing complaint. Not enough for a stool sample yet. Will cultures pending if diarrhea persists. 5. GE reflux disease. Patient remains on proton pump inhibitor therapy. History of fundoplication in the past. Subjective Date/time seen: 05/30/20 07:20 Objective Data Vital Signs Vital Signs: Vital Signs - 24 hr 05/29/20 08:00 05/29/20 14:00 05/29/20 20:37 Temperature 98.5 F 97.7 F Pulse Rate 58 L 64 60 Respiratory Rate 16 16 12 Blood Pressure 126/71 132/79 Pulse Oximetry 99 99 100 05/29/20 23:47 05/30/20 06:07 Temperature 97 F L 98.9 F Pulse Rate 62 70 Respiratory Rate 16 14 Blood Pressure 137/76 105/60 Pulse Oximetry 99 100 Intake/Output Intake/Output: Intake & Output 05/27/20 05/28/20 05/29/20 05/30/20 23:59 23:59 23:59 23:59 Intake Total 1000 3920 3010 1100 Output Total 3050 150 Balance 1000 3920 -40 950 Meds/Results Medications: Active Medications Generic Name Dose Route Start Last Admin Trade Name Freq PRN Reason Stop Dose Admin Buspirone HCl 10 mg 05/28/20 17:00 05/29/20 16:43 Buspar PO 10 mg BID MERON Administration Dicyclomine HCl 10 mg 05/28/20 17:00 05/29/20 16:43 Bentyl Capsule PO 10 mg BID MERON Administration Famotidine 20 mg 05/28/20 21:00 05/29/20 20:14 Pepcid PO 20 mg HS MERON Administration Sodium Chloride 1,000 mls @ 60 mls/hr 05/27/20 22:35 05/30/20 01:44 Normal Saline Iv IV CONT 60 mls/hr .[id number] MERON Administration Ondansetron HCl 4 mg 05/29/20 10:30 05/29/20 23:13 Zofran Inj IV PUSH 4 mg Q6H PRN Administration Nausea And Vomiting Pantoprazole Sodium 40 mg 05/28/20 17:00 05/29/20 16:43 Protonix PO 40 mg BID MERON Administration Sertraline HCl 50 mg 05/29/20 09:00 05/29/20 09:28 Zoloft PO 50 mg DAILY MERON Administration Simethicone 125 mg 05/28/20 12:37 05/29/20 09:28 Phazyme PO 125 mg QID PRN Administration Abdominal Discomfort Sumatriptan Succinate 100 mg 05/28/20 12:37 05/29/20 21:29 Imitrex PO 100 mg DAILY PRN Administration Migraine headache Radiology Results: ITS Impressions Head CT 05/27/20 19:16 IMPRESSION: 1. No acute intracranial abnormality. Chest X-Ray 05/27/20 19:34 IMPRESSION: 1. No acute cardiopulmonary abnormality. Upper Quadrant Ultrasound 05/28/20 11:19 IMPRESSION: 1. Unremarkable abdominal ultrasound exam. Labs Labs: Laboratory Results - last 24 hr 05/29/20 05/30/20 05/30/20 06:16 00:09 06:32 WBC 3.8 L 4.8 RBC 3.57 L 3.78 L Hgb 10.8 L 11.4 L Hct 33.2 L 34.5 L MCV 93.0 91.3 MCH 30.3 30.2 MCHC 32.5 33.0 RDW 13.0 13.0 Plt Count 245 258 MPV 11.2 H 10.6 H Sodium Potassium Chloride Carbon Dioxide Anion Gap BUN Creatinine Estim Creat Clear Calc Estimated GFR Glucose Calcium Troponin I < 0.012 05/30/20 06:32 WBC RBC Hgb Hct MCV MCH MCHC RDW Plt Count MPV Sodium 147 H Potassium 3.7 Chloride 109 H Carbon Dioxide 29 Anion Gap 9 BUN 7 Creatinine 0.70 Estim Cr
[2020-05-30 08:00] VITALS: PULSE 70; RESP 14; O2SAT 100
[2020-05-30] MEDS: PANTOPRAZOLE 40 MG TABLET PO ×2 (09:36→17:04)
[2020-05-30] MEDS: SERTRALINE HCL 50 MG TABLET PO (09:36)
[2020-05-30] MEDS: busPIRone HCL 5 MG TABLET 10 MG PO ×2 (09:36→17:05)
[2020-05-30] MEDS: DICYCLOMINE HCL 10 MG CAPSULE PO ×2 (10:12→17:05)
--- NOTE | 2020-05-30 11:34 | PCNFU ---
Nutrition Follow-Up Complete: Inadequate Oral Intake as related to N/V as evidenced by poor po intake reported Goal: Meet estimated nutritional needs Progressing towards goal. We will continue current goal. Pt current nutrition is Regular . Nutrition recommendation: Agree Last recorded weight is 59.4 kg. No new weight. Bowel Motility: +BM reported 05/28-patient states diarrhea continues. Labs Reviewed:Na 147,Hct 34.5,Hgb 11.4 Meds Noted: Zoloft,Protonix Additional Notes: Patient seen today for nutrition follow up. Diet order has advanced to a regular diet. Tolerating diet. Discussion with patient food choices with IBS. Patient instruction attached. Monitoring: Will follow up every 5 days.
--- NOTE | 2020-05-30 13:51 | PM.DS ---
DS: Admitting Diagnosis Admitting Diagnosis Admitting Diagnosis: Intractable nausea and vomiting DS: Discharge Diagnosis Discharge Diagnosis (1) Intractable nausea and vomiting: Code(s): R11.2 - Nausea with vomiting, unspecified Status: Acute Assessment and Plan: Improving. GI is following. She has had an extensive workup. EGD 01/2020 was unremarkable with intact Gary fundiplocation and normal mucosa. Colonoscopy 03/2020 demonstrated two tubular adenomas and internal hemorrhoids. 4 CT abd/pelvis since 01/2020 were unremarkable with most recent 05/23. WBC is normal. LFTs mildly elevated. GI recommends continued supportive care and her diet was increased to regular today and she tolerated breakfast and lunch without any issues. Will continue her PPI BID and PRN Zofran. Told her to quit using marijuana would could contribute to cyclic vomiting syndrome. Patient understands and agrees with the plan all questions answered. Follow-up with GI as outpatient for further evaluation workup if symptoms continue. (2) Chronic abdominal pain: Code(s): R10.9 - Unspecified abdominal pain; G89.29 - Other chronic pain Status: Chronic Assessment and Plan: Likely multifactorial secondary to Celiac disease, GERD, IBS, recurrent nausea, vomiting. Continue PPI, dicyclomine and simethicone. (3) Chronic diarrhea: Code(s): K52.9 - Noninfective gastroenteritis and colitis, unspecified Status: Acute Assessment and Plan: Continue supportive care. Continue dicyclomine for IBS. (4) GERD (gastroesophageal reflux disease): Qualifiers: Esophagitis presence: esophagitis presence not specified Qualified Code(s): K21.9 - Gastro-esophageal reflux disease without esophagitis Code(s): K21.9 - Gastro-esophageal reflux disease without esophagitis Status: Chronic Assessment and Plan: Continue PO protonix. (5) Anxiety and depression: Code(s): F41.9 - Anxiety disorder, unspecified; F32.9 - Major depressive disorder, single episode, unspecified Status: Chronic Assessment and Plan: Chronic with no acute issues. Continue buspirone and sertraline. (6) Hepatic steatosis: Code(s): K76.0 - Fatty (change of) liver, not elsewhere classified Status: Chronic Assessment and Plan: Visualized on MRI 02/05/20. LFTs on arrival. They have since normalized. Hepatitis panel negative and RUQ US unremarkable. Could be secondary to nausea, vomiting. DS: Summary Hospital Course Reason for hospitalization: Patient is a 50-year-old woman with a history of celiac disease, who presented to the emergency department with nausea, vomiting, abdominal cramping and diarrhea for the last 11 days. She has had 8 emergency room visits since April 17, 2020 for similar symptoms. The patient has had an extensive workup with GI as an outpatient with a recent EGD and colonoscopy in the last 3 months. initial vitals show her 98.3%, blood pressure 114/63, heart rate 76, respiratory 18, oxygen saturation 98% on room air. Labs showed normal CBC with differential normal CMP other than slightly elevated ALT 50 and alk Phosphatase at 132. Negative troponin. Normal lipase. Normal urinalysis. Normal hepatitis panel. CT head showed no Intracranial abnormality. Chest x-ray showed no acute cardiopulmonary abnormality. The patient was admitted into the hospital due to her multiple admissions, recurrence of symptoms, unable to tolerate p.o. in the emergency room. GI was consulted for further evaluation while she is in the hospital. She had a right upper quadrant ultrasound which was unremarkable. Conservative management by GI who believes she could have cyclic vomiting syndrome related to her marijuana use. Over the next few days to be slowly advance her diet, antiemetics p.r.n., and PPI was given. Patient was able tolerate a regular diet prior to discharge and was
[2020-05-30 14:00] VITALS: BP 115/68; PULSE 64; RESP 16; TEMP 36.4; O2SAT 99
== END 2020-05-30 17:38 | disposition home or self-care (01) | DRG 394 ==
LOC: ANHED 23:40 → ANH3MEDSUR 23:47
PROVIDERS: Physician Assistant; Admitting Provider Family Medicine; Emergency Provider Family Medicine; PCP Family Medicine; Visit Provider Internal Medicine
DX: R11.15 Cyclical vomiting syndrome unrelated to migraine (principal); I48.20 Chronic atrial fibrillation, unspecified; Z23 Encounter for immunization; F41.8 Other specified anxiety disorders; F12.90 Cannabis use, unspecified, uncomplicated; G89.29 Other chronic pain; K90.0 Celiac disease; K21.9 Gastro-esophageal reflux disease without esophagitis; K58.0 Irritable bowel syndrome with diarrhea; K76.0 Fatty (change of) liver, not elsewhere classified; E86.0 Dehydration; G43.909 Migraine, unspecified, not intractable, without status migrainosus; G62.9 Polyneuropathy, unspecified; M19.90 Unspecified osteoarthritis, unspecified site; Z87.891 Personal history of nicotine dependence; Z90.49 Acquired absence of other specified parts of digestive tract; Z98.890 Other specified postprocedural states
CPT/HCPCS: 36415; 70450; 71046; 76705; 80048; 80053; 80074; 81003; 83690; 84484; 85025; 85027; 90471; 90686; 93005; 96361; 96374; 96375; 96376; 99285; A9270; C9113; G0008; G0378; J2060; J2405; J7030

== ENCOUNTER 2020-07-05 05:50 | Emergency (ER) | payer MEDICARE, MEDICAID, SELFPAY ==
[2020-07-05 05:53] VITALS: BP 130/68; PULSE 82; RESP 18; TEMP 36.4; O2SAT 100
--- NOTE | 2020-07-05 06:08 | ED.NAVMDI ---
HPI - Nausea/Vomiting/Diarrhea General Chief complaint: Abdominal Pain Stated complaint: stomach pain Time Seen by Provider: 07/05/20 06:01 Source: patient Mode of arrival: ambulatory Limitations: no limitations History of Present Illness HPI Narrative: Patient is a 50-year-old female complaining of nausea vomiting diarrhea and abdominal discomfort that started yesterday. Patient states that she could have eaten something bad. Patient does have a history of chronic abdominal pain and chronic diarrhea with multiple ER visits. Patient has had 4 CT scans, an EGD and a colonoscopy, and upper GI series, right upper quadrant ultrasound, and multiple abdominal x-rays done within the last 6 months for the same complaints. 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 Patient denies any chest pain, shortness of breath, fever or chills. Related Data Home Medications Medication Instructions Recorded Confirmed buspirone 10 mg PO BID 03/27/20 05/28/20 alum-mag hydroxide-simeth [Mylanta 10 ml PO QID PRN 05/28/20 05/28/20 Maximum Strength] sertraline 50 mg PO DAILY 05/28/20 05/28/20 simethicone [Gas-X Extra Strength] 125 mg PO QID PRN 05/28/20 05/28/20 sumatriptan succinate 100 mg PO DAILY PRN 05/28/20 05/28/20 Allergies Allergy/AdvReac Type Severity Reaction Status Date / Time prochlorperazine AdvReac Severe Confusion Verified 07/05/20 05:57 metoclopramide [From Reglan] AdvReac Intermediate anxiety Verified 07/05/20 05:57 azithromycin AdvReac Unknown STOMACH Verified 07/05/20 05:57 UPSET Review of Systems Review of Systems: All systems reviewed & are unremarkable except as noted in HPI and below Constitutional: Constitutional: Denies body ache(s), Denies chills, Denies excessive sweating, Denies fatigue, Denies fever(s), Denies headache(s), Denies lethargy, Denies malaise, Denies weakness and Denies weight loss Eyes: Eyes: Denies blurry vision, Denies change in vision and Denies loss of vision ENT: Denies dizziness, Denies ear discharge, Denies headache(s), Denies lip swelling, Denies epistaxis, Denies nasal congestion, Denies neck pain, Denies throat swelling and Denies tongue swelling Cardiovascular: Cardiovascular: Denies chest pain, Denies chest pain at rest, Denies chest pain with activity, Denies diaphoresis, Denies rapid heart rate, Denies edema, Denies irregular heart rhythm, Denies lightheadedness, Denies palpitations, Denies dyspnea and Denies dyspnea on exertion Respiratory: Respiratory: Denies chest congestion, Denies cough, Denies hemoptysis, Denies dyspnea and Denies dyspnea on exertion Gastrointestinal: Gastrointestinal: Denies melena, Denies hematochezia and Denies hematemesis Musculoskeletal: Musculoskeletal: Denies abnormal gait, Denies deformity, Denies joint swelling, Denies limited range of motion, Denies neck pain and Denies numbness Neurologic: Denies Abnormal speech present, Denies abnormal gait, Denies confusion, Denies dizziness, Denies headache(s), Denies focal weakness, Denies loss of vision, Denies numbness, Denies Other visual disturbances, Denies Sensory deficit (Neuro) and Denies weakness Psychiatric: Psychiatric: Denies confusion, Denies depression, Denies auditory hallucinations, Denies homicidal ideation and Denies suicidal ideation Endocrine: Endocrine: Denies cold intolerance, Denies excessive sweating, Denies fatigue, Denies heat intolerance and Denies palpitations Hematologic/Lymphatic: Hematologic/Lymphatic: Denies easy bleeding and Denies easy bruising Allergic/Immunologic: Allergic/Immunologic: Denies lip swelling, Denies throat swelling and Denies tongue swelling PMFSH Past Medical History Medical History Anxiety and depression Arthritis Atrial fibrillation Celiac disease Diverticulosis GERD (gastroesophageal reflux disease) Migraine headache Neuropathy Surgical History Surgical History (Reviewed 05/28/20 @ 02:39 by Mandeep Stovall
[2020-07-05] MEDS: ONDANSETRON INJ 4 MG/2 ML VIAL IV PUSH (06:22)
[2020-07-05] MEDS: SODIUM CHLORIDE 0.9% IV 1,000 ML 999 ML IV CONT (06:22)
[2020-07-05 06:27] LABS: Basophils Percent Auto 0.7 % (0.2-1.2); Eosinophils Absolute Auto 0.1 K/mm3 (0-0.3); Eosinophils Percent Auto 1.7 % (0-4.4); Hematocrit 38.9 % (37.0-47.0); Hemoglobin 12.7 g/dL (12.0-15.0); Immature Granulocyte Absolute 0.01 K/mm3 (0.00-0.031); Immature Granulocyte Percent A 0.2 % (0-0.5); Lymphocytes Absolute Auto 1.23 K/mm3 (0.9-3.2); Lymphocytes Percent Auto 21.2 % (18.3-44.2); Mean Corpuscular HGB Conc 32.6 g/dl (32-36); Mean Platelet Volume 10.2 fl (7.4-10.4); Monocytes Absolute Auto 0.5 K/mm3 (0.1-0.6); Monocytes Percent Auto 7.9 % (2.6-8.5); Neutrophils Percent Auto 68.3 % (45.5-73.1); Platelet Count Result 316 k/mm3 (150-375); Red Blood Count 4.23 M/mm3 (4.2-5.4); Red Cell Distribution Width 13.1 % (11.5-14.5); White Blood Count 5.8 K/mm3 (4.5-10.0)
[2020-07-05 06:35] LABS: Add Urine Microscopic? NO; Appearance Urine Clear (Clear); Bilirubin Urine Negative (Negative); Blood Urine Negative (Negative); Color Urine Colorless (Yellow); Glucose Urine UA Negative (Negative); Ketones Urine Negative (Negative); Leukocyte Esterase Ur Negative LEU/UL (Negative); Nitrate Urine Negative (Negative); Protein Urine Negative (Negative); RBC Urine 0-2 /hpf (0-2); Specific Grav Ur 1.005 (1.001-1.035); Squamous Epithelial Cell Urine Rare /hpf (Few); Urobilinogen Urine Negative mg/dL (<2.0)
[2020-07-05 06:38] LABS: Alanine Aminotransferase 21 U/L (4-35); Albumin Level 4.8 g/dL (3.5-5.1); Alkaline Phosphatase 74 U/L (38-126); Anion Gap 10 mmol/L (8-16); Aspartate Amino Transferase 28 U/L (14-36); Bilirubin,Total 0.3 mg/dL (0.2-1.3); Blood Urea Nitrogen 12 mg/dL (7-17); Calcium 9.7 mg/dL (8.4-10.2); Carbon Dioxide 32 mmol/L (22-30); Chloride 103 mmol/L (98-107); Estimated CRCL calculation 70 ml/min; Estimated Glomerular Filt Rate > 60; Glucose 114 mg/dL (65-105); Lipase 194 U/L (23-300); Potassium 4.1 mmol/L (3.4-5.0); Sodium 145 mmol/L (137-145)
[2020-07-05 08:01] VITALS: BP 128/65; PULSE 80; RESP 18; O2SAT 100
--- NOTE | 2020-07-25 12:53 | PC.NURSE ---
LATE ENTRY This note is being entered to document information to the patient's record. The following information was omitted on [07/05/20], by [Svitlana Loya RN]. NS stopped at 0620.
--- NOTE | 2020-08-02 21:44 | PC.NURSE ---
NS infused into patient and stopped on 07/05/2020 at 0823.
== END 2020-07-05 08:05 | disposition home or self-care (01) ==
PROVIDERS: Emergency Provider Emergency Medicine; PCP Family Medicine
DX: R10.9 Unspecified abdominal pain (principal); G89.29 Other chronic pain; R11.2 Nausea with vomiting, unspecified; R19.7 Diarrhea, unspecified; F41.9 Anxiety disorder, unspecified; F32.9 Major depressive disorder, single episode, unspecified; I48.91 Unspecified atrial fibrillation; K90.0 Celiac disease; K21.9 Gastro-esophageal reflux disease without esophagitis; G62.9 Polyneuropathy, unspecified; Z87.891 Personal history of nicotine dependence
CPT/HCPCS: 36415; 80053; 81003; 81025; 83690; 85025; 96374; 99284; J2405; J7030

== ENCOUNTER 2021-04-25 11:46 | Emergency (ER) | payer MEDICARE, MEDICAID, SELFPAY ==
[2021-04-25] VITALS (26 sets, daily range): BP systolic 87–150; BP diastolic 48–97; PULSE 67–81; RESP 15–16; TEMP 36.4–36.6; O2SAT 97–100
[2021-04-25 12:24] LABS: Basophils Percent Auto 0.4 % (0.2-1.2); Eosinophils Absolute Auto 0.2 K/mm3 (0-0.3); Eosinophils Percent Auto 1.5 % (0-4.4); Hematocrit 38.2 % (37.0-47.0); Hemoglobin 12.3 g/dL (12.0-15.0); Immature Granulocyte Absolute 0.03 K/mm3 (0.00-0.031); Immature Granulocyte Percent A 0.3 % (0-0.5); Lymphocytes Percent Auto 11.8 % (18.3-44.2); Mean Corpuscular HGB Conc 32.2 g/dl (32-36); Mean Corpuscular Hemoglobin 29.1 pg (26-34); Mean Corpuscular Volume 90.5 fl (80-100); Mean Platelet Volume 10.2 fl (7.4-10.4); Monocytes Absolute Auto 0.7 K/mm3 (0.1-0.6); Monocytes Percent Auto 5.9 % (2.6-8.5); Neutrophils Absolute Auto 8.8 K/mm3 (1.3-6.7); Neutrophils Percent Auto 80.1 % (45.5-73.1); Platelet Count Result 360 k/mm3 (150-375); Red Blood Count 4.22 M/mm3 (4.2-5.4); Red Cell Distribution Width 13.5 % (11.5-14.5)
[2021-04-25 12:33] LABS: Alanine Aminotransferase 17 U/L (4-35); Albumin Level 4.7 g/dL (3.5-5.1); Alkaline Phosphatase 88 U/L (38-126); Anion Gap 8 mmol/L (8-16); Aspartate Amino Transferase 31 U/L (14-36); Bilirubin,Total 0.1 mg/dL (0.2-1.3); Blood Urea Nitrogen 9 mg/dL (7-17); Calcium 9.7 mg/dL (8.4-10.2); Carbon Dioxide 26 mmol/L (22-30); Chloride 104 mmol/L (98-107); Estimated CRCL calculation 69 ml/min; Estimated Glomerular Filt Rate > 60; Glucose 121 mg/dL (65-110); Lipase 185 U/L (23-300); Sodium 138 mmol/L (137-145)
--- NOTE | 2021-04-25 13:08 | ED.NAVMDI ---
HPI - Nausea/Vomiting/Diarrhea General Chief complaint: Nausea/Vomiting/Diarrhea Stated complaint: Vomiting Time Seen by Provider: 04/25/21 13:07 History of Present Illness HPI Narrative: 51 yo female w/ h/o GERD, celiac disease presents to the ED c/o nausea and vomiting. She reports that she has been feeling nauseated for a few weeks. She started vomiting last night and has not been able to keep anything down since then . This is associated with epigastric pain and a few loose stools. he has been seen in this ED numerous times for the same symptoms, although she has been under better control recently. No CP, SOB, fever. Related Data Home Medications Medication Instructions Recorded Confirmed alum-mag hydroxide-simeth [Mylanta 10 ml PO QID PRN 05/28/20 05/28/20 Maximum Strength] simethicone [Gas-X Extra Strength] 125 mg PO QID PRN 05/28/20 05/28/20 sumatriptan succinate 100 mg PO DAILY PRN 05/28/20 05/28/20 buspirone 5 mg tablet 100 mg PO BID tablet 04/17/21 clonazepam 0.5 mg tablet 0.5 mg PO BID tablet 04/17/21 dicyclomine 10 mg capsule 20 mg PO BID cap 04/17/21 metoprolol succinate 25 mg 25 mg PO DAILY 04/17/21 tablet,extended release 24 hr Allergies Allergy/AdvReac Type Severity Reaction Status Date / Time prochlorperazine AdvReac Severe Confusion Verified 04/25/21 11:51 metoclopramide [From Reglan] AdvReac Intermediate anxiety Verified 04/25/21 11:51 azithromycin AdvReac Unknown STOMACH Verified 04/25/21 11:51 UPSET Review of Systems Review of Systems: All systems reviewed & are unremarkable except as noted in HPI and below PMFSH Past Medical History Medical History Anxiety and depression Arthritis Atrial fibrillation Celiac disease Diverticulosis GERD (gastroesophageal reflux disease) Migraine headache Neuropathy Surgical History Surgical History History of delivery History of cholecystectomy History of Gary fundoplication History of tubal ligation Family History Family History Mother Family history of elevated blood lipids Family history of arthritis Sibling Family history of arthritis Grandparent Cerebrovascular accident Family history of cardiovascular disease Hypertension Diabetes mellitus Social History Social History Smoking packs per day: 0.5 Smoking cigarettes per day: 10.0 Years smoked: 10 Smoking pack-years: 5.00 Smoking status: Former smoker Tobacco type: cigarettes Alcohol intake: never Substance use: current Substance use type: marijuana Last use: 05/21/20 Gender identity (if verbalized by the patient): Female Spiritual care concerns: No Exam Const: General: healthy appearing, no acute distress and alert Orientation/consciousness: patient oriented x3 HENMT: Head: normal to inspection Resp: Effort & Inspection: normal respiratory effort Auscultation: clear to auscultation bilaterally, no rales, no rhonchi and no wheezes Cardio: Jugular venous distension: no JVD Rate: regular rate Rhythm: regular rhythm Heart sounds: no murmurs GI: Inspection: non-distended GI Palp: Yes Soft to palpation and Yes Tenderness to palpation present (GI) Skin: General skin exam: normal color Neuro: General: patient oriented x3 and moves all extremities Speech: normal speech Extrem: General: no edema Psych: Appearance: well kempt Affect: normal affect Course Vital Signs Vital signs: Vital Signs Temperature 36.4 C L 04/25/21 11:49 Pulse Rate 81 04/25/21 11:49 Respiratory Rate 15 04/25/21 11:49 Blood Pressure 150/97 H 04/25/21 11:49 Pulse Oximetry 99 04/25/21 11:49 Temperature 36.6 C 04/25/21 18:21 Pulse Rate 67 04/25/21 18:21 Respiratory Rate 16 04/25/21 18:21 Blood Pres
[2021-04-25 13:17] LABS: Add Urine Microscopic? NO; Appearance Urine Clear (Clear); Bilirubin Urine Negative (Negative); Blood Urine Negative (Negative); Color Urine Straw (Yellow); Glucose Urine UA Negative (Negative); Ketones Urine Negative (Negative); Leukocyte Esterase Ur Negative LEU/UL (Negative); Nitrate Urine Negative (Negative); Protein Urine Negative (Negative); Specific Grav Ur 1.008 (1.001-1.035); Urobilinogen Urine Negative mg/dL (<2.0)
[2021-04-25] MEDS: ONDANSETRON INJ 4 MG/2 ML VIAL IV PUSH ×2 (14:20→16:25)
[2021-04-25] MEDS: DICYCLOMINE HCL INJ 20 MG/2 ML VIAL IM (14:20)
[2021-04-25] MEDS: PANTOPRAZOLE SODIUM IV 40 MG VIAL IV PUSH (14:20)
[2021-04-25] MEDS: SODIUM CHLORIDE 0.9% IV 1,000 ML 999 ML IV CONT (14:20)
== END 2021-04-25 18:24 | disposition home or self-care (01) ==
PROVIDERS: Emergency Provider Emergency Medicine; PCP Family Medicine
DX: R11.2 Nausea with vomiting, unspecified (principal); R10.13 Epigastric pain; F41.9 Anxiety disorder, unspecified; F32.9 Major depressive disorder, single episode, unspecified; I48.91 Unspecified atrial fibrillation; K90.0 Celiac disease; K21.9 Gastro-esophageal reflux disease without esophagitis; G62.9 Polyneuropathy, unspecified; Z87.891 Personal history of nicotine dependence
CPT/HCPCS: 36415; 80053; 81003; 81025; 83690; 85025; 96372; 96374; 96375; 96376; 99284; A9270; C9113; J0500; J2405; J7030

== ENCOUNTER 2021-04-25 21:39 | Inpatient (IN) | payer MEDICARE, MEDICAID, SELFPAY ==
--- NOTE | ~2021-04-25 | XR_ITS ---
EXAMINATION: XR abdomen/kub 1V EXAM DATE: 04/29/2021 07:24 INDICATION: Adynamic ileus follow-up. TECHNIQUE: Frontal projection(s) of the abdomen for interpretation. Comparison is made to prior exami nation from 04/01/2020. Correlation was made with CT abdomen pelvis 04/25/2021. FINDINGS: There is expected amount of colonic stool and gas. No small bowel dilation, nonobstructiv e bowel gas pattern. There are no suspicious calcifications identified. There is no organomegaly suspected. Mild lumbar dextroscoliosis. There are mild bony degenerative changes. There are cholec ystectomy clips. IMPRESSION: Unremarkable abdomen x-ray exam. Reviewed, dictated and finalized at location [facility].
--- NOTE | ~2021-04-25 | CT_ITS ---
EXAMINATION: CT abdomen pelvis w con DATE: 04/25/2021 23:37 INDICATION: Upper abdominal pain. Nausea, vomiting, diarrhea TECHNIQUE: Computed tomography (CT) of the abdomen and pelvis was performed with 100 cc Omnipaque 350 intravenous contrast. Automated exposure control and iterative reconstruction technique were employe d. Exam dose: 407.92 mGy-cm total exam DLP. COMPARISON: 05/28/2020 right upper quadrant abdominal ultrasound 05/23/2020 CT abdomen pelvis FINDINGS: The lung bases are clear of infiltrate or consolidation. Normal heart size. No pericardial or pleural effusion. Status post cholecystectomy. The liver, spleen, pancreas and adrenal glands are unremarkable. 1.4 cm upper pole right renal cyst. 6 mm and 3 mm left renal cysts. No urinary tract calculus or hydroureteronephrosis. Normal caliber of the abdominal aorta. No intraperitoneal or retroperitoneal or pelvic mass lesion or adenopathy or ascites. There are some gas-distended small bowel segments measuring up to approximately 2.8 cm diameter. Ther e are small bowel air-fluid levels. There is no apparent bowel obstruction. Findings suggest adynamic ileus or enteritis. Diverticulosis of the colon; no CT evidence of diverticulitis. Normal appendix. The uterus, adnexa and urinary bladder are unremarkable. No suspicious osteolytic or osteoblastic lesions. IMPRESSION: Distended small bowel and small bowel air-fluid levels suggesting enteritis or adynamic ileus No apparent bowel obstruction Normal appendix Diverticulosis of the colon; no CT evidence of diverticulitis Status post cholecystectomy Bilateral renal cysts Reviewed, dictated and finalized at [facility]. Reviewed, dictated and finalized at location [facility].
[2021-04-25 21:41] VITALS: BP 119/70; PULSE 84; RESP 16; TEMP 36.5; O2SAT 100
[2021-04-25 22:15] VITALS: BP 103/66; PULSE 72; RESP 14; O2SAT 98
[2021-04-25] MEDS: ONDANSETRON INJ 4 MG/2 ML VIAL IV PUSH (22:40)
[2021-04-25] MEDS: SODIUM CHLORIDE 0.9% IV 1,000 ML 999 ML IV CONT ×2 (22:45→23:55)
[2021-04-25 22:57] LABS: Basophils Percent Auto 0.4 % (0.2-1.2); Eosinophils Absolute Auto 0.2 K/mm3 (0-0.3); Eosinophils Percent Auto 1.6 % (0-4.4); Hematocrit 37.6 % (37.0-47.0); Hemoglobin 12.1 g/dL (12.0-15.0); Immature Granulocyte Absolute 0.02 K/mm3 (0.00-0.031); Immature Granulocyte Percent A 0.2 % (0-0.5); Lymphocytes Absolute Auto 2.03 K/mm3 (0.9-3.2); Lymphocytes Percent Auto 21.5 % (18.3-44.2); Mean Corpuscular HGB Conc 32.2 g/dl (32-36); Mean Corpuscular Volume 90.2 fl (80-100); Mean Platelet Volume 10.7 fl (7.4-10.4); Monocytes Absolute Auto 0.9 K/mm3 (0.1-0.6); Monocytes Percent Auto 9.7 % (2.6-8.5); Neutrophils Absolute Auto 6.3 K/mm3 (1.3-6.7); Neutrophils Percent Auto 66.6 % (45.5-73.1); Platelet Count Result 341 k/mm3 (150-375); Red Blood Count 4.17 M/mm3 (4.2-5.4); Red Cell Distribution Width 13.7 % (11.5-14.5); White Blood Count 9.4 K/mm3 (4.5-10.0)
[2021-04-25 23:14] LABS: Alanine Aminotransferase 17 U/L (4-35); Albumin Level 4.6 g/dL (3.5-5.1); Alkaline Phosphatase 88 U/L (38-126); Anion Gap 9 mmol/L (8-16); Aspartate Amino Transferase 32 U/L (14-36); Bilirubin,Total 0.4 mg/dL (0.2-1.3); Blood Urea Nitrogen 8 mg/dL (7-17); Calcium 9.5 mg/dL (8.4-10.2); Carbon Dioxide 24 mmol/L (22-30); Chloride 110 mmol/L (98-107); Estimated CRCL calculation 69 ml/min; Estimated Glomerular Filt Rate > 60; Glucose 105 mg/dL (65-110); Lipase 182 U/L (23-300); Potassium 3.5 mmol/L (3.4-5.0); Sodium 143 mmol/L (137-145)
[2021-04-25 23:21] VITALS: BP 100/56; PULSE 60; RESP 16; O2SAT 100
[2021-04-25 23:56] VITALS: BP 105/63; PULSE 65; RESP 12; O2SAT 98
[2021-04-26] VITALS (7 sets, daily range): BP systolic 101–115; BP diastolic 57–72; PULSE 52–79; RESP 14–18; TEMP 36.4–36.8; O2SAT 95–100; BMI 27.6
--- NOTE | 2021-04-26 00:44 | ED.NAVMDI ---
HPI - Nausea/Vomiting/Diarrhea General Chief complaint: Nausea/Vomiting/Diarrhea Stated complaint: n/v Time Seen by Provider: 04/25/21 22:20 History of Present Illness HPI Narrative: Patient presents with nausea vomiting and diarrhea. Patient reports she was seen earlier today and initially were doing better however today persisted and she has been unable to eat or drink anything since the start so she came back to the ER for evaluation. Reports diffuse abdominal pain denies any blood or bile or melena she reports subjective fevers. Related Data Home Medications Medication Instructions Recorded Confirmed alum-mag hydroxide-simeth [Mylanta 10 ml PO QID PRN 05/28/20 04/26/21 Maximum Strength] simethicone [Gas-X Extra Strength] 125 mg PO QID PRN 05/28/20 04/26/21 sumatriptan succinate 100 mg PO PRN PRN 05/28/20 04/26/21 clonazepam 0.5 mg tablet 0.5 mg PO BID tablet 04/17/21 04/26/21 dicyclomine 10 mg capsule 20 mg PO BID cap 04/17/21 04/26/21 metoprolol succinate 25 mg 25 mg PO DAILY 04/17/21 04/26/21 tablet,extended release 24 hr bupropion HCl 100 mg PO BID 04/26/21 04/26/21 Allergies Allergy/AdvReac Type Severity Reaction Status Date / Time prochlorperazine AdvReac Severe Confusion Verified 04/25/21 11:51 metoclopramide [From Reglan] AdvReac Intermediate anxiety Verified 04/25/21 11:51 azithromycin AdvReac Unknown STOMACH Verified 04/25/21 11:51 UPSET Review of Systems Review of Systems: CONSTITUTIONAL: Reports fevers chills and sweats EYES: Denies visual changes, redness, or discharge. ENT: Denies rhinorrhea, congestion, sore throat, or otalgia. CARDIOVASCULAR: Denies chest pain, palpitations, or edema. RESPIRATORY: Denies cough or dyspnea. GASTROINTESTINAL: Reports diffuse abdominal pain nausea vomiting and diarrhea GENITOURINARY: Denies dysuria or hematuria. SKIN: Denies rash or itching. MUSCULOSKELETAL: Denies back pain, joint pain, or myalgia. NEUROLOGIC: Denies headache, numbness, dizziness, or weakness. PSYCHIATRIC: Denies anxiety or depression. All systems reviewed & are unremarkable except as noted in HPI and below PMFSH Past Medical History Medical History (Updated 04/26/21 @ 01:50 by Raphael Ordoñez MD) Anxiety and depression Arthritis Atrial fibrillation Celiac disease Diverticulosis GERD (gastroesophageal reflux disease) Migraine headache Neuropathy Surgical History Surgical History History of delivery History of cholecystectomy History of Gary fundoplication History of tubal ligation Family History Family History Mother Family history of elevated blood lipids Family history of arthritis Sibling Family history of arthritis Grandparent Cerebrovascular accident Family history of cardiovascular disease Hypertension Diabetes mellitus Social History Social History Smoking packs per day: 0.5 Smoking cigarettes per day: 10.0 Years smoked: 10 Smoking pack-years: 5.00 Smoking status: Current every day smoker Tobacco type: e-cigarettes/vaping Alcohol intake: never Substance use: current Substance use type: marijuana Last use: 05/21/20 Gender identity (if verbalized by the patient): Female Spiritual care concerns: No Exam Narrative: GENERAL: Well-appearing, well-nourished, and in no acute distress. HEAD: Normocephalic, atraumatic. EYES: PERRLA and EOMI. ENT: Nares clear, no rhinorrhea or epistaxis. Mucous membranes moist. NECK: Supple. No masses. No JVD CHEST: Clear to auscultation. No respiratory distress. No wheezes rales or rhonchi HEART: Regular rate and rhythm. No murmur heard. Normal peripheral pulses. ABDOMEN: Mild diffuse abdominal pain soft,nondistended. EXTREMITIES: Normal range of motion. No edema. SKIN: Warm, dry, no rash. NEURO: No focal deficits. Al
[2021-04-26] MEDS: ONDANSETRON INJ 4 MG/2 ML VIAL IV PUSH ×3 (00:58→19:37)
[2021-04-26] MEDS: LIDOCAINE HCL 2% VISC SOLN 15 ML UDC 20 ML PO (01:09)
[2021-04-26] MEDS: MAG HYDROX/AL HYDROX/SIMETH 30 ML UDC PO (01:09)
[2021-04-26] MEDS: LORazepam INJ (*CRX) 2 MG/ML VIAL 0.5 MG IV PUSH (01:36)
[2021-04-26] MEDS: SODIUM CHLORIDE 0.9% IV 1,000 ML 125 ML IV CONT ×3 (03:16→20:13)
--- NOTE | 2021-04-26 10:15 | PM.IMHP ---
H&P: HPI History of Present Illness Chief Complaint: nausea and vomiting Narrative: This is a 51- year old lady with a past medical history including but not limited to anxiety, atrial fibrillation, GERD, cholecystitis, Gary fundoplication, who has been admitted to the hospitalist service on 04/25/2021. The patient was in her usual state of yaw until day prior to presentation when she developed nausea, vomiting and persistent loose bowels. Vomitus is food particles and stomach fluids without bloods. she has reported episodes of diarrhea while in Ed, but denies any diarrhea today. The patient is examined at the bedside this morning. She is feeling much better. She had some fluids this morning; although she had mild nausea, she was able to keep her food down. She is now able to tolerate fluids. She denies any abdominal discomfort report she was able to sleep well last night overnight issues. Review of Systems Review of Systems: CONSTITUTIONAL: Positive for subjective fevers, Negative for any chills, night sweats, tiredness, fatigue, malaise, anorexia or weight loss. CARDIOVASCULAR: Negative for chest pain, palpitations, dizziness, orthopnea or lower extremity edema. RESPIRATORY: Negative for shortness of breath, cough, wheezing, sputum. GASTROINTESTINAL: positive for nausea; abdominal pain, vomiting and diarrhea have resolved. GENITOURINARY: Negative for frequency, nocturia, dysuria, hematuria. GYNECOLOGIC: Negative for abnormal bleeding. HEMATOLOGIC: Negative for any abnormal bleeding or bruising. MUSCULOSKELETAL: Negative for joint swelling, stiffness or pain. SKIN: Negative for rashes, eruptions, lesions or dryness. NEUROLOGIC: Negative for any focal neurologic complaints. PSYCHIATRIC: Negative for anxiety, panic, depression. [facility] Past Medical History Medical History (Updated 04/26/21 @ 01:50 by Raphael Ordoñez MD) Anxiety and depression Arthritis Atrial fibrillation Celiac disease Diverticulosis GERD (gastroesophageal reflux disease) Migraine headache Neuropathy Surgical History Surgical History History of delivery History of cholecystectomy History of Gary fundoplication History of tubal ligation Family History Family History Mother Family history of elevated blood lipids Family history of arthritis Sibling Family history of arthritis Grandparent Cerebrovascular accident Family history of cardiovascular disease Hypertension Diabetes mellitus Social History Social History Smoking packs per day: 0.5 Smoking cigarettes per day: 10.0 Years smoked: 10 Smoking pack-years: 5.00 Smoking status: Current every day smoker Tobacco type: e-cigarettes/vaping Alcohol intake: never Substance use: current Substance use type: marijuana Last use: 05/21/20 Gender identity (if verbalized by the patient): Female Sexual Orientation (if Verbalized by the Patient): Straight or Heterosexual Spiritual care concerns: No Meds Home Medications and Allergies Home Medications Medication Instructions Recorded Confirmed Type alum-mag hydroxide-simeth [Mylanta 10 ml PO QID PRN 05/28/20 04/26/21 History Maximum Strength] simethicone [Gas-X Extra Strength] 125 mg PO QID PRN 05/28/20 04/26/21 History sumatriptan succinate 100 mg PO PRN PRN 05/28/20 04/26/21 History pantoprazole 40 mg PO Q12HR #60 tablet 05/30/20 04/26/21 Rx clonazepam 0.5 mg tablet 0.5 mg PO BID tablet 04/17/21 04/26/21 History dicyclomine 10 mg capsule 20 mg PO BID cap 04/17/21 04/26/21 History metoprolol succinate 25 mg 25 mg PO DAILY 04/17/21 04/26/21 History tablet,extended release 24 hr ondansetron HCl [Zofran] 4 mg PO Q6H PRN #20 tablet 04/25/21 04/26/21 Rx bupropion HCl 100 mg PO BID 04/26/21 04/26/21 History Allergies Allergy/AdvReac Typ
[2021-04-26] MEDS: ENOXAPARIN 40 MG/0.4 ML SYRINGE SUB-Q (11:36)
[2021-04-26] MEDS: SIMETHICONE 125 MG CHEW TAB PO (11:36)
[2021-04-26] MEDS: clonazePAM (*CRX) 0.5 MG TABLET PO ×2 (11:36→20:13)
[2021-04-26] MEDS: PANTOPRAZOLE 40 MG TABLET PO ×2 (11:37→20:13)
[2021-04-26] MEDS: DICYCLOMINE HCL 10 MG CAPSULE 20 MG PO ×2 (11:37→17:59)
[2021-04-26] MEDS: buPROPion HCL SR (12HR) 100 MG TABCR PO ×2 (11:37→20:13)
[2021-04-27] MEDS: SODIUM CHLORIDE 0.9% IV 1,000 ML 125 ML IV CONT ×3 (03:55→21:21)
[2021-04-27] MEDS: ONDANSETRON INJ 4 MG/2 ML VIAL IV PUSH (03:55)
[2021-04-27 06:00] VITALS: BP 116/66; PULSE 67; RESP 18; TEMP 36.1; O2SAT 100
[2021-04-27] MEDS: SIMETHICONE 125 MG CHEW TAB PO (08:14)
[2021-04-27] MEDS: buPROPion HCL SR (12HR) 100 MG TABCR PO ×2 (08:14→20:49)
[2021-04-27] MEDS: DICYCLOMINE HCL 10 MG CAPSULE 20 MG PO ×2 (08:14→17:05)
[2021-04-27] MEDS: PANTOPRAZOLE 40 MG TABLET PO ×2 (08:14→20:49)
[2021-04-27] MEDS: clonazePAM (*CRX) 0.5 MG TABLET PO ×2 (08:17→20:49)
[2021-04-27] MEDS: MAG HYDROX/AL HYDROX/SIMETH 30 ML UDC 10 ML PO (08:20)
--- NOTE | 2021-04-27 13:08 | PM.IMPN ---
Progress Note: A&P Assessment and Plan (1) IBS (irritable bowel syndrome): Code(s): K58.9 - Irritable bowel syndrome without diarrhea Status: Acute Assessment and Plan: likely cause of patient's symptoms, each being treated individually as below. will continue patient's GI regimen, including Bentyl and simethicone and Protonix. Noted patient is on dicyclomine at home, will continue. Patient follows closely with GI specialist, who has been consulted, appreciate recommendations. (2) Atrial fibrillation: Code(s): I48.91 - Unspecified atrial fibrillation Status: Acute Assessment and Plan: patient reports being diagnosed with atrial fibrillation in the past. Follows with airdrop systems technician, who advised for her to not take beta-blockers as her heart rate becomes on safely bradycardic. Therefore will hold off on beta blockers while she is admitted. Will start her on blood thinners, Eliquis b.i.d.. Discontinue other anticoagulation. Monitor hemoglobin. (3) Nausea & vomiting: Qualifiers: Vomiting Intractability: intractable Vomiting type: unspecified Qualified Code(s): R11.2 - Nausea with vomiting, unspecified Code(s): R11.2 - Nausea with vomiting, unspecified Status: Acute Assessment and Plan: Complex history, has tried several interventions to treat abdominal pain with nausea and vomiting, however no ultimate resolution Follows closely with GI specialist, who is affiliated with [facility], will consult and appreciate recommendations. Zofran not doing well for nausea, will change to IV Tigan. Pain control with p.r.n. morphine. 2 mg q.4 hours. (4) Chronic abdominal pain: Code(s): R10.9 - Unspecified abdominal pain; G89.29 - Other chronic pain Status: Chronic Assessment and Plan: Suspect related to IBS, patient has had cholecystectomy. Lipase normal on admission. No acute changes in abdominal pain in last 24 hours. No signs of rigidity or peritoneal signs on physical exam. Questionable history of celiac disease? GI on consult, appreciate recommendations. Continue p.r.n. morphine (5) Chronic diarrhea: Code(s): K52.9 - Noninfective gastroenteritis and colitis, unspecified Status: Acute (6) Hepatic steatosis: Code(s): K76.0 - Fatty (change of) liver, not elsewhere classified Status: Chronic (7) GERD (gastroesophageal reflux disease): Qualifiers: Esophagitis presence: esophagitis presence not specified Qualified Code(s): K21.9 - Gastro-esophageal reflux disease without esophagitis Code(s): K21.9 - Gastro-esophageal reflux disease without esophagitis Status: Chronic Assessment and Plan: Continue Protonix from home. (8) History of Gary fundoplication: Code(s): Z98.890 - Other specified postprocedural states Status: Acute (9) Anxiety and depression: Code(s): F41.9 - Anxiety disorder, unspecified; F32.9 - Major depressive disorder, single episode, unspecified Status: Chronic Assessment and Plan: Continue bupropion. currently patient does not feel depressed, homicidal, suicidal. (10) History of cholecystectomy: Code(s): Z90.49 - Acquired absence of other specified parts of digestive tract Status: Acute Subjective Date/time seen: 04/27/21 13:08 Patient sitting in bed comfortably throughout interview. However does state that she has intermittent periods of abdominal pain. A and nausea. Has had 2 episodes of vomiting. Review of Systems Review of Systems: All systems reviewed & are unremarkable except as noted in HPI and below Exam Narrative: Does not appear to be in acute distress, able to converse for at least 10 minutes without any difficulty. Const: General: no acute distress Neck: Neck: no JVD Resp: Effort & Inspection: normal respiratory effort Auscultation: clear to auscultation bilaterally Cardio:
[2021-04-27] MEDS: ENOXAPARIN 40 MG/0.4 ML SYRINGE SUB-Q (13:16)
[2021-04-27] MEDS: TRIMETHOBENZAMIDE HCL 200 MG/2 ML VIAL IM ×2 (13:23→21:20)
[2021-04-27 14:00] VITALS: BP 115/68; PULSE 60; RESP 12; TEMP 36.7; O2SAT 99
[2021-04-27 17:57] LABS: Glucose Point of Care 74 mg/dl (65-105)
--- NOTE | 2021-04-27 18:23 | PC.NURSE ---
This RN called Dr. Zavala at 1145 due to pt c/o nausea and anti-emitic not available for another 2 hours. Pt also complaining of pain and that her current medications: tylenol, mylanta, zofran, are not helping. MD to put in new orders. New orders helped pt, but she voiced additional concerns of nausea at 1715, again complaint noted before PRN anti-emitic medication available for pt. Pt also shaking. Checked a blood sugar and pt noted to be at 74. Called who placed orders for stool collection and clear liquid diet to aid in maintaining blood sugars. Will continue to monitor pt; placed pt on contact C isolation.
[2021-04-27] MEDS: APIXABAN 5 MG TABLET PO (20:49)
[2021-04-27 21:24] VITALS: BP 116/72; PULSE 72; RESP 18; TEMP 36.2; O2SAT 100
[2021-04-28] MEDS: MORPHINE SULFATE (*CRX) 2 MG/ML INJ IV PUSH ×2 (00:46→08:41)
[2021-04-28 05:21] VITALS: BP 112/66; PULSE 60; RESP 18; TEMP 36.4; O2SAT 100
[2021-04-28 06:25] LABS: Basophils Percent Auto 0.5 % (0.2-1.2); Eosinophils Absolute Auto 0.2 K/mm3 (0-0.3); Eosinophils Percent Auto 2.7 % (0-4.4); Hematocrit 30.5 % (37.0-47.0); Hemoglobin 9.5 g/dL (12.0-15.0); Immature Granulocyte Absolute 0.02 K/mm3 (0.00-0.031); Immature Granulocyte Percent A 0.3 % (0-0.5); Lymphocytes Absolute Auto 2.15 K/mm3 (0.9-3.2); Lymphocytes Percent Auto 27.8 % (18.3-44.2); Mean Corpuscular HGB Conc 31.1 g/dl (32-36); Mean Corpuscular Hemoglobin 28.4 pg (26-34); Monocytes Absolute Auto 1.1 K/mm3 (0.1-0.6); Monocytes Percent Auto 13.8 % (2.6-8.5); Neutrophils Absolute Auto 4.3 K/mm3 (1.3-6.7); Neutrophils Percent Auto 54.9 % (45.5-73.1); Platelet Count Result 260 k/mm3 (150-375); Red Blood Count 3.35 M/mm3 (4.2-5.4); Red Cell Distribution Width 13.3 % (11.5-14.5); White Blood Count 7.7 K/mm3 (4.5-10.0)
[2021-04-28 06:41] LABS: Alanine Aminotransferase 27 U/L (4-35); Albumin Level 3.4 g/dL (3.5-5.1); Alkaline Phosphatase 66 U/L (38-126); Anion Gap 8 mmol/L (8-16); Aspartate Amino Transferase 39 U/L (14-36); Bilirubin,Total 0.1 mg/dL (0.2-1.3); Blood Urea Nitrogen 5 mg/dL (7-17); Calcium 8.4 mg/dL (8.4-10.2); Carbon Dioxide 22 mmol/L (22-30); Chloride 108 mmol/L (98-107); Estimated CRCL calculation 90 ml/min; Estimated Glomerular Filt Rate > 60; Glucose 89 mg/dL (65-110); Magnesium 1.6 mg/dL (1.6-2.3); Phosphorus 3.5 mg/dL (2.5-4.5); Potassium 3.6 mmol/L (3.4-5.0); Sodium 138 mmol/L (137-145)
[2021-04-28] MEDS: TRIMETHOBENZAMIDE HCL 200 MG/2 ML VIAL IM (08:42)
[2021-04-28] MEDS: SODIUM CHLORIDE 0.9% IV 1,000 ML 125 ML IV CONT ×2 (08:46→16:28)
[2021-04-28 09:23] LABS: Lactate Dehydrogenase 431 U/L (313-618)
[2021-04-28 09:24] LABS: Immature Reticulocyte Fraction 9.1 % (3.0-15.9); Reticulocyte Hemoglobin Conten 33.6 pg (28.2-35.7); Reticulocyte Percent 1.46 % (0.7-4.3); Reticulocytes Absolute 0.05 B/L (32.2-175.7)
[2021-04-28 09:30] LABS: Transferrin 260 mg/dL (206-381)
[2021-04-28 09:35] LABS: Iron 49 ug/dL (37-170)
[2021-04-28 09:44] LABS: Percent Iron Saturation 14 % (20-50)
--- NOTE | 2021-04-28 10:00 | WPDGICN ---
Assessment and Plan Assessment and plan (1) Nausea & vomiting: Qualifiers: Vomiting Intractability: intractable Vomiting type: unspecified Qualified Code(s): R11.2 - Nausea with vomiting, unspecified <Yanique Gloria APRN - Last Filed: 04/28/21 10:20> Code(s): R11.2 - Nausea with vomiting, unspecified <Yanique Gloria APRN - Last Filed: 04/28/21 10:20> Status: Acute <Yanique Gloria APRN - Last Filed: 04/28/21 10:20> Assessment and Plan: Impression: 1. Nausea/Vomiting/Early Satiety/Bloating/Epigastric Abdominal Pain/Loose stools with CT suggestive of enteritis vs. Adynamic Ileus with possible concerns for Functional Dyspepsia vs. Motility vs. PUD vs. Gastritis 2. Dysphagia ring vs. stricture vs. hiatal hernia vs. motility 3. GERD with hx of Gary Fundoplication 4. Celiac Disease?? No evidence of EGD 5. Normocytic Anemia 6. Anxiety and Depression 7. A Fib on Eliquis BID 8. Hx of adenomatous colon polyps 9. Diverticulosis 10. Hemorrhoids 11. Marijuana abuse Recommendations 1. PPI BID 2. Add carafate 1 gram AC/HS 3. D/c Bentyl 4. EGD in AM with Dr. Salmeron. Hold Eliquis 5. Restart Amitriptyline 10 mg-consider titrating up per GI 6. KUB in AM 7. Celiac Panel and Immunofixation 8. Await Stool Studies-pending 9. Add SCDs <Yanique Gloria APRN - Last Filed: 04/28/21 10:20> GI Consult Note Consult date/time: 04/28/21 10:00 <Yanique Gloria APRN - Last Filed: 04/28/21 10:20> HPI: Sarahy Gill is a 51 year old female who presented to ER 04/26/21 for three weeks of daily nausea and one day of vomiting white clear phlegm with loose water stools. She denies any hematemesis, coffee ground emesis, melena or hematochezia. She also reports one day prior to admission she began having epigastric abdominal pain described as cramping with radiation into bilateral lower quadrants. This pain would come and go with no improvement with BM and possible worse postprandial. She does report increasing pyrosis along with dysphagia to liquids and solids near epigastric level that has been ongoing for sometime she states. She reports early satiety and bloating. Last BM was last night and had some rectal burning. Recently had amitriptyline stopped and feels like this is worse. She currently takes Protonix 40 mg daily, Gas X PRN, and Bentyl 20 mg BID. Hx of celiac disease in the past but does not follow gluten free diet. EGD with Dr. Salmeron 01/2020 was normal with normal appearing duodenum. EGD 2010 at [facility] duodenal bx showed chronic duodenitis. Colonoscopy 04/04/2020 had hemorrhoids and adenomatous colon polyps. CT this Admit showed small bowel fluid filled levels suggested of enteritis vs. adynamic ileus and diverticulosis. Hgb has dropped from 12-9. No evidence of active bleeding. Stool studies and anemia work up pending at this time. Smoke marijuana and last time was 5 days ago. No hx of pancreatitis, fx of GI malignancies or IBD. <Yanique Gloria APRN - Last Filed: 04/28/21 10:20> Review of Systems Review of Systems: All systems reviewed & are unremarkable except as noted in HPI and below <Yanique Gloria APRN - Last Filed: 04/28/21 10:20> Gastrointestinal: Gastrointestinal: Reports as per HPI <Yanique Gloria APRN - Last Filed: 04/28/21 10:20> [facility] Past Medical History Medical History: Medical History (Updated 04/28/21 @ 10:05 by Alverto Gonzalez DO) Adenomatous colon polyp Anxiety and depression Arthritis Atrial fibrillation Celiac disease Diverticulosis GERD (gastroesophageal reflux disease) Migraine headache Neuropathy <Yanique Gloria APRN - Last Filed: 04/28/21 10:20> Surgical History Surgical History: Surgical History History of delivery History of cholecystectomy History of Gary fundoplication History of tubal ligation <Yanique Gloria APRN - Last Filed: 04/28/21 10:20> Fam
--- NOTE | 2021-04-28 10:24 | ECG_ITS ---
Measurements Intervals Griffith Rate: 65 P: 29 SD: 127 QRS: 51 QRSD: 82 T: 29 QT: 436 QTc: 456 Interpretive Statements SINUS RHYTHM ATRIAL PREMATURE COMPLEXES BORDERLINE ST ABNORMALITY- INFERIOR LEADS BORDERLINE ECG Electronically Signed On 04-28-2021 19:57:52 CDT by Cabrera Moya D.O.
[2021-04-28 10:36] LABS: Folic Acid > 20.0 ng/mL (2.76->20)
--- NOTE | 2021-04-28 12:03 | PM.IMPN ---
Progress Note: A&P Assessment and Plan (1) IBS (irritable bowel syndrome): Code(s): K58.9 - Irritable bowel syndrome without diarrhea Status: Acute Assessment and Plan: likely cause of patient's symptoms, each being treated individually as below. will continue patient's GI regimen, including Bentyl and simethicone and Protonix. Noted patient is on dicyclomine at home, will continue. Patient follows closely with GI specialist, who has been consulted, Planning for EGD tomorrow. Noted the GI has started the patient on amitriptyline and sucralfate. (2) Atrial fibrillation: Code(s): I48.91 - Unspecified atrial fibrillation Status: Acute Assessment and Plan: patient reports being diagnosed with atrial fibrillation in the past. Follows with data governance consultant, who advised for her to not take beta-blockers as her heart rate becomes on safely bradycardic. Therefore will hold off on beta blockers while she is admitted. started on Eliquis, however holding for procedure tomorrow. Hemoglobin dropped from 12-9.5 today. Will monitor tomorrow, Anticoagulation on hold for now. (3) Nausea & vomiting: Qualifiers: Vomiting Intractability: intractable Vomiting type: unspecified Qualified Code(s): R11.2 - Nausea with vomiting, unspecified Code(s): R11.2 - Nausea with vomiting, unspecified Status: Acute Assessment and Plan: Complex history, has tried several interventions to treat abdominal pain with nausea and vomiting, however no ultimate resolution Follows closely with GI specialist, who is affiliated with [facility], appreciate recommendations. Zofran not doing well for nausea, will change to IV Tigan. Pain control with p.r.n. morphine. 2 mg q.4 hours. (4) Chronic abdominal pain: Code(s): R10.9 - Unspecified abdominal pain; G89.29 - Other chronic pain Status: Chronic Assessment and Plan: Suspect related to IBS, patient has had cholecystectomy. Lipase normal on admission. No acute changes in abdominal pain in last 24 hours. No signs of rigidity or peritoneal signs on physical exam. Questionable history of celiac disease? GI on consult, appreciate recommendations. Continue p.r.n. morphine (5) Anxiety and depression: Code(s): F41.9 - Anxiety disorder, unspecified; F32.9 - Major depressive disorder, single episode, unspecified Status: Chronic Assessment and Plan: Continue bupropion. currently patient does not feel depressed, homicidal, suicidal. Is on Klonopin, however having difficulty tolerating p.o. meds, so will change to IV Ativan. (6) Chronic diarrhea: Code(s): K52.9 - Noninfective gastroenteritis and colitis, unspecified Status: Acute Assessment and Plan: Stooled pathology sent, including C diff toxin. If negative can start loperamide. (7) Hepatic steatosis: Code(s): K76.0 - Fatty (change of) liver, not elsewhere classified Status: Chronic (8) GERD (gastroesophageal reflux disease): Qualifiers: Esophagitis presence: esophagitis presence not specified Qualified Code(s): K21.9 - Gastro-esophageal reflux disease without esophagitis Code(s): K21.9 - Gastro-esophageal reflux disease without esophagitis Status: Chronic Assessment and Plan: Continue Protonix from home. However will have to be IV, as patient cannot tolerate p.o. (9) History of Gary fundoplication: Code(s): Z98.890 - Other specified postprocedural states Status: Acute Subjective Date/time seen: 04/28/21 12:03 complaining of continued abdominal discomfort and nausea. Occasional vomiting, mainly clear liquids, not bilious nonprojectile. Continues to have bowel movements, diarrhea. Review of Systems Review of Systems: All systems reviewed & are unremarkable except as noted in HPI and below Exam Const: General: no acute distress Neck: Neck: no JVD R
[2021-04-28 12:15] LABS: Free T4 Free Thyroxine Reflex 1.24 ng/dL (0.78-2.19)
[2021-04-28 12:55] LABS: Total Triiodothyronine (T3) 1.07 NG/ML (0.97-1.69)
[2021-04-28] MEDS: ONDANSETRON INJ 4 MG/2 ML VIAL IV PUSH ×2 (13:16→21:02)
[2021-04-28] MEDS: LORazepam INJ (*CRX) 2 MG/ML VIAL 0.5 MG IV PUSH ×2 (13:18→22:58)
[2021-04-28 14:00] VITALS: BP 124/58; PULSE 74; RESP 22; TEMP 36.1; O2SAT 99
[2021-04-28 15:34] LABS: Hematocrit 30.3 % (37.0-47.0); Hemoglobin 9.9 g/dL (12.0-15.0)
[2021-04-28] MEDS: SUCRALFATE 1 GM TABLET PO ×2 (16:27→21:02)
--- NOTE | 2021-04-28 19:53 | PC.NURSE ---
This RN was told pt called out that she had vomited multiple times. I went to in the room to check on pt. She repeated that she had vomited numerous times. I expressed my concern and she showed me her vomit, which was 5mls or less of saliva. I tried to educate patient that it was only saliva. She said she knows but it is because she is throwing up from her (pointed to her upper chest, three inches below her collarbone area) chest. She said I cant get it up from here (pointing to her belly). Pt unable to take PO meds from 0900 to 1600 due to her refusing as she was actively vomiting .
[2021-04-28] MEDS: AMITRIPTYLINE HCL 10 MG TABLET PO (21:02)
[2021-04-28] MEDS: buPROPion HCL SR (12HR) 100 MG TABCR PO (21:02)
[2021-04-28] MEDS: PANTOPRAZOLE SODIUM IV 40 MG VIAL IV PUSH (21:02)
[2021-04-28 22:00] VITALS: BP 120/65; PULSE 84; RESP 18; TEMP 36.7; O2SAT 100
[2021-04-29] VITALS (9 sets, daily range): BP systolic 95–123; BP diastolic 49–71; PULSE 65–108; RESP 13–20; TEMP 35.9–37.1; O2SAT 99–100
[2021-04-29] MEDS: SODIUM CHLORIDE 0.9% IV 1,000 ML 125 ML IV CONT ×2 (05:47→15:47)
[2021-04-29 06:43] LABS: Basophils Percent Auto 0.3 % (0.2-1.2); Eosinophils Absolute Auto 0.3 K/mm3 (0-0.3); Hematocrit 31.7 % (37.0-47.0); Hemoglobin 10.1 g/dL (12.0-15.0); Immature Granulocyte Absolute 0.04 K/mm3 (0.00-0.031); Immature Granulocyte Percent A 0.5 % (0-0.5); Lymphocytes Absolute Auto 1.94 K/mm3 (0.9-3.2); Lymphocytes Percent Auto 22.4 % (18.3-44.2); Mean Corpuscular HGB Conc 31.9 g/dl (32-36); Mean Corpuscular Hemoglobin 28.9 pg (26-34); Mean Corpuscular Volume 90.6 fl (80-100); Mean Platelet Volume 10.8 fl (7.4-10.4); Monocytes Absolute Auto 1.1 K/mm3 (0.1-0.6); Neutrophils Absolute Auto 5.3 K/mm3 (1.3-6.7); Neutrophils Percent Auto 60.8 % (45.5-73.1); Platelet Count Result 263 k/mm3 (150-375); Red Cell Distribution Width 13.4 % (11.5-14.5); White Blood Count 8.7 K/mm3 (4.5-10.0)
[2021-04-29 07:11] LABS: Alanine Aminotransferase 26 U/L (4-35); Albumin Level 3.5 g/dL (3.5-5.1); Alkaline Phosphatase 68 U/L (38-126); Anion Gap 11 mmol/L (8-16); Aspartate Amino Transferase 38 U/L (14-36); Bilirubin,Total 0.2 mg/dL (0.2-1.3); Blood Urea Nitrogen 4 mg/dL (7-17); Calcium 8.5 mg/dL (8.4-10.2); Carbon Dioxide 20 mmol/L (22-30); Chloride 104 mmol/L (98-107); Estimated CRCL calculation 106 ml/min; Estimated Glomerular Filt Rate > 60; Glucose 71 mg/dL (65-110); Magnesium 1.7 mg/dL (1.6-2.3); Phosphorus 3.5 mg/dL (2.5-4.5); Potassium 2.9 mmol/L (3.4-5.0); Sodium 135 mmol/L (137-145)
[2021-04-29] MEDS: ONDANSETRON INJ 4 MG/2 ML VIAL IV PUSH (07:32)
--- NOTE | 2021-04-29 08:21 | WPDANESEPPF ---
Anes - Initial Pre Proc Eval Procedure: Operation Date: 04/29/21 12:00 Proposed Procedures p Esophagogastroduodenoscopy - Alverto Salmeron MD Date/Time: 04/29/21 08:21 Surgeon: Medina Rich DO Pre Op Diagnosis: Nausea, Vomiting Patient Data Age: 51 Gender: F Height: 1.63 m Weight: 72.9 kg Last Vital Signs Temp 37.1 C 04/29/21 05:49 Pulse 108 H 04/29/21 05:49 Resp 18 04/29/21 05:49 BP 121/62 04/29/21 05:49 Pulse Ox 100 04/29/21 05:49 Allergies Allergy/AdvReac Type Severity Reaction Status Date / Time prochlorperazine AdvReac Severe Confusion Verified 04/29/21 11:16 metoclopramide [From Reglan] AdvReac Intermediate anxiety Verified 04/29/21 11:16 azithromycin AdvReac Unknown STOMACH Verified 04/29/21 11:16 UPSET Home Medications Medication Instructions Recorded Confirmed Type alum-mag hydroxide-simeth [Mylanta 10 ml PO QID PRN 05/28/20 04/26/21 History Maximum Strength] simethicone [Gas-X Extra Strength] 125 mg PO QID PRN 05/28/20 04/26/21 History sumatriptan succinate 100 mg PO PRN PRN 05/28/20 04/26/21 History pantoprazole 40 mg PO Q12HR #60 tablet 05/30/20 04/26/21 Rx clonazepam 0.5 mg tablet 0.5 mg PO BID tablet 04/17/21 04/26/21 History dicyclomine 10 mg capsule 20 mg PO BID cap 04/17/21 04/26/21 History metoprolol succinate 25 mg 25 mg PO DAILY 04/17/21 04/26/21 History tablet,extended release 24 hr ondansetron HCl [Zofran] 4 mg PO Q6H PRN #20 tablet 04/25/21 04/26/21 Rx bupropion HCl 100 mg PO BID 04/26/21 04/26/21 History Laboratory Tests 04/28/21 04/28/21 04/28/21 09:06 09:06 09:06 WBC RBC Hgb Hct MCV MCH MCHC RDW Plt Count MPV Immature Gran % (Auto) Neut % (Auto) Lymph % (Auto) [place] % (Auto) Eos % (Auto) Baso % (Auto) Lymph # (Auto) [place] # (Auto) Eos # (Auto) Baso # (Auto) Abs Immat Gran (auto) Absolute Neuts (auto) Absolute Nucleated RBC Nucleated RBC % Absolute Retic 0.05 B/L L B/L (32.2-175.7) Percent Retic 1.46 % % (0.7-4.3) Immature Retic Fraction 9.1 % % (3.0-15.9) Retic Hgb Content 33.6 pg pg (28.2-35.7) Hemoglobin A % Hemoglobin A2 Quant Hemoglobin C % Hemoglobin E % Hemoglobin F Percent Hemoglobin S % Hemoglobinopathy Red Blood Count Hemoglobinopathy Hct Hemoglobinopathy Hgb Hemoglobinopathy MCV Hemoglobinopathy MCH Hemoglobinopathy RDW Hemoglobinopathy Interp Haptoglobin Hemoglobin Other Hemoglobin Other 2 Sodium Potassium Chloride Carbon Dioxide Anion Gap BUN Creatinine Estim Creat Clear Calc Estimated GFR Glucose Calcium Phosphorus Magnesium Iron 49 ug/dL ug/dL (37-170) TIBC 338 ug/dL ug/dL (261-462) % Saturation 14 % L % (20-50) Transferrin 260 mg/dL mg/dL (206-381) Ferritin 11.10 ng/mL ng/mL (11.1-264) Total Bilirubin AST ALT Alkaline Phosphatase Lactate Dehydrogenase 431 U/L U/L (313-618) Total Protein Albumin Vitamin B12 926.0 pg/mL pg/mL (239-931) Folate > 20.0 ng/mL H ng/mL (2.76->20) TSH (Reflex) 4.070 uIU/mL uIU/mL (0.465-4.68) Free T4 Total T3 Reticulin IgG Antibody Reticulin IgA Antibody Tiss Transglut IgA Comm
[2021-04-29] MEDS: PANTOPRAZOLE SODIUM IV 40 MG VIAL IV PUSH ×2 (08:51→22:11)
--- NOTE | 2021-04-29 10:42 | PCNFU ---
Nutrition Follow-Up Complete: Inadequate Oral Intake as related to Nausea/Vomiting as evidenced by poor po intake reported. goal: Adequate Intake of at least 75% of meals/supplements Limited progressing towards goal. we will continues current goal. Pt current nutrition is NPO. Nutrition recommendation:Advancing diet as tolerated per MD orders. Last recorded weight is 72.9 kg, no new weight to report. Bowel Motility:+BM reported 04/28 Labs Reviewed:Cr 0.5,BUN 4,Na 135,Hct 31.7,Hgb 10.1 Meds Noted:NS, Elavil, Ativan,Zofran Additional Notes: Nutrition follow op. Patient having EGD/colonoscopy today. Some Nausea reported, ab discomfort. Agree with diet orders at this time. Monitoring: Will monitor every 3 days.
--- NOTE | 2021-04-29 11:00 | PC.NURSE ---
To GI Lab per w/c, IV standby. Report given to KIET.
[2021-04-29] MEDS: LACTATED RINGERS 1,000 ML 150 ML IV CONT (11:19)
--- NOTE | 2021-04-29 12:35 | PC.NURSE ---
Returned from GI Lab. Report received from KIET.
[2021-04-29] MEDS: SIMETHICONE 125 MG CHEW TAB PO (18:03)
--- NOTE | 2021-04-29 18:06 | PM.IMPN ---
Progress Note: A&P Assessment and Plan (1) IBS (irritable bowel syndrome): Code(s): K58.9 - Irritable bowel syndrome without diarrhea Status: Acute Assessment and Plan: likely cause of patient's symptoms, each being treated individually as below. will continue patient's GI regimen, including Bentyl and simethicone and Protonix. Noted patient is on dicyclomine at home, will continue. Patient follows closely with GI specialist, who has been consulted, Planning for EGD tomorrow. Noted the GI has started the patient on amitriptyline and sucralfate. EGD did today did not reveal any source of patient's symptoms. (2) Atrial fibrillation: Code(s): I48.91 - Unspecified atrial fibrillation Status: Acute Assessment and Plan: patient reports being diagnosed with atrial fibrillation in the past. Follows with repertoire manager, who advised for her to not take beta-blockers as her heart rate becomes on safely bradycardic. Therefore will hold off on beta blockers while she is admitted. started on Eliquis, however holding for procedure tomorrow. Hemoglobin dropped shortly after starting anticoagulation, is stable at 10. Currently holding. (3) Nausea & vomiting: Qualifiers: Vomiting Intractability: intractable Vomiting type: unspecified Qualified Code(s): R11.2 - Nausea with vomiting, unspecified Code(s): R11.2 - Nausea with vomiting, unspecified Status: Acute Assessment and Plan: Complex history, has tried several interventions to treat abdominal pain with nausea and vomiting, however no ultimate resolution Follows closely with GI specialist, who is affiliated with [facility], appreciate recommendations. Zofran not doing well for nausea, will change to IV Tigan. Pain control with p.r.n. morphine. 2 mg q.4 hours. (4) Chronic abdominal pain: Code(s): R10.9 - Unspecified abdominal pain; G89.29 - Other chronic pain Status: Chronic Assessment and Plan: Suspect related to IBS, patient has had cholecystectomy. Lipase normal on admission. No acute changes in abdominal pain in last 24 hours. No signs of rigidity or peritoneal signs on physical exam. Questionable history of celiac disease? GI on consult, appreciate recommendations. Continue p.r.n. morphine (5) Anxiety and depression: Code(s): F41.9 - Anxiety disorder, unspecified; F32.9 - Major depressive disorder, single episode, unspecified Status: Chronic Assessment and Plan: Continue bupropion. currently patient does not feel depressed, homicidal, suicidal. Is on Klonopin, however having difficulty tolerating p.o. meds, so will change to IV Ativan. (6) Chronic diarrhea: Code(s): K52.9 - Noninfective gastroenteritis and colitis, unspecified Status: Acute Assessment and Plan: Stooled pathology sent, including C diff toxin. If negative can start loperamide. (7) Hepatic steatosis: Code(s): K76.0 - Fatty (change of) liver, not elsewhere classified Status: Chronic (8) GERD (gastroesophageal reflux disease): Qualifiers: Esophagitis presence: esophagitis presence not specified Qualified Code(s): K21.9 - Gastro-esophageal reflux disease without esophagitis Code(s): K21.9 - Gastro-esophageal reflux disease without esophagitis Status: Chronic Assessment and Plan: Continue Protonix from home. However will have to be IV, as patient cannot tolerate p.o. (9) History of Gary fundoplication: Code(s): Z98.890 - Other specified postprocedural states Status: Acute Subjective Date/time seen: 04/29/21 18:06 Resting comfortably in bed. Eating current leave this afternoon, and able to tolerate meals so far. No abdominal pain. Review of Systems Review of Systems: All systems reviewed & are unremarkable except as noted in HPI and below Exam Neck: Neck: no JVD Resp: Effort & Inspection: n
[2021-04-29] MEDS: APIXABAN 5 MG TABLET PO (22:11)
[2021-04-29] MEDS: buPROPion HCL SR (12HR) 100 MG TABCR PO (22:11)
[2021-04-29] MEDS: AMITRIPTYLINE HCL 10 MG TABLET PO (22:11)
[2021-04-30] MEDS: LORazepam INJ (*CRX) 2 MG/ML VIAL 0.5 MG IV PUSH (00:34)
[2021-04-30 06:56] LABS: Basophils Percent Auto 0.4 % (0.2-1.2); Eosinophils Absolute Auto 0.2 K/mm3 (0-0.3); Eosinophils Percent Auto 2.9 % (0-4.4); Hematocrit 30.8 % (37.0-47.0); Hemoglobin 9.7 g/dL (12.0-15.0); Immature Granulocyte Absolute 0.03 K/mm3 (0.00-0.031); Immature Granulocyte Percent A 0.4 % (0-0.5); Lymphocytes Percent Auto 22.5 % (18.3-44.2); Mean Corpuscular HGB Conc 31.5 g/dl (32-36); Mean Corpuscular Hemoglobin 28.2 pg (26-34); Mean Corpuscular Volume 89.5 fl (80-100); Mean Platelet Volume 10.8 fl (7.4-10.4); Monocytes Percent Auto 13.5 % (2.6-8.5); Neutrophils Absolute Auto 4.6 K/mm3 (1.3-6.7); Neutrophils Percent Auto 60.3 % (45.5-73.1); Platelet Count Result 285 k/mm3 (150-375); Red Blood Count 3.44 M/mm3 (4.2-5.4); Red Cell Distribution Width 13.4 % (11.5-14.5); White Blood Count 7.6 K/mm3 (4.5-10.0)
[2021-04-30 07:25] LABS: Alanine Aminotransferase 23 U/L (4-35); Albumin Level 3.5 g/dL (3.5-5.1); Alkaline Phosphatase 65 U/L (38-126); Anion Gap 9 mmol/L (8-16); Aspartate Amino Transferase 31 U/L (14-36); Bilirubin,Total 0.2 mg/dL (0.2-1.3); Blood Urea Nitrogen 4 mg/dL (7-17); Calcium 8.3 mg/dL (8.4-10.2); Carbon Dioxide 23 mmol/L (22-30); Chloride 104 mmol/L (98-107); Estimated CRCL calculation 106 ml/min; Estimated Glomerular Filt Rate > 60; Glucose 92 mg/dL (65-110); Magnesium 1.5 mg/dL (1.6-2.3); Phosphorus 3.3 mg/dL (2.5-4.5); Potassium 2.5 mmol/L (3.4-5.0); Sodium 136 mmol/L (137-145)
[2021-04-30] MEDS: PANTOPRAZOLE SODIUM IV 40 MG VIAL IV PUSH ×2 (08:31→21:10)
[2021-04-30] MEDS: APIXABAN 5 MG TABLET PO ×2 (08:31→21:10)
[2021-04-30] MEDS: buPROPion HCL SR (12HR) 100 MG TABCR PO ×2 (08:31→21:10)
[2021-04-30] MEDS: POTASSIUM CHLORIDE 20 MEQ TABLET 40 MEQ PO (08:32)
[2021-04-30] MEDS: SODIUM CHLORIDE 0.9% IV 1,000 ML 125 ML IV CONT ×2 (08:34→17:20)
[2021-04-30] MEDS: MAGNESIUM SULF 2 GM/WATER 50ML 2 GM/50 ML BAG IVPB (08:34)
--- NOTE | 2021-04-30 09:30 | WPDANESPN ---
Anes - Prog Note Post-Op Date/Time: 04/30/21 09:30 Cardiovascular status: normal Respiratory status: normal Airway patency: baseline Mental status: baseline Post-Op hydration status: normal Vital Signs: Last Vital Signs Temp 36.4 C 04/29/21 21:51 Pulse 65 04/29/21 21:51 Resp 18 04/29/21 21:51 BP 115/67 04/29/21 21:51 Pulse Ox 100 04/29/21 21:51 Pain Score (VAS): 0 I/O: Intake & Output 04/29/21 04/30/21 04/30/21 23:59 07:59 15:59 Intake Total 1120 480 Output Total 4 Balance 1116 480 Laboratory Tests 04/30/21 06:04 04/30/21 06:04 04/30/21 04/30/21 06:04 06:04 WBC 7.6 RBC 3.44 L Hgb 9.7 L Hct 30.8 L MCV 89.5 MCH 28.2 MCHC 31.5 L RDW 13.4 Plt Count 285 MPV 10.8 H Immature Gran % (Auto) 0.4 Neut % (Auto) 60.3 Lymph % (Auto) 22.5 [place] % (Auto) 13.5 H Eos % (Auto) 2.9 Baso % (Auto) 0.4 Lymph # (Auto) 1.70 [place] # (Auto) 1.0 H Eos # (Auto) 0.2 Baso # (Auto) 0.0 Abs Immat Gran (auto) 0.03 Absolute Neuts (auto) 4.6 Absolute Nucleated RBC 0.0 Nucleated RBC % 0.0 Sodium 136 L Potassium 2.5 L* Chloride 104 Carbon Dioxide 23 Anion Gap 9 BUN 4 L Creatinine 0.50 L Estim Creat Clear Calc 106 Estimated GFR > 60 Glucose 92 Calcium 8.3 L Phosphorus 3.3 Magnesium 1.5 L Total Bilirubin 0.2 AST 31 ALT 23 Alkaline Phosphatase 65 Total Protein 6.0 L Albumin 3.5 Microbiology 04/28/21 17:25 Stool Cryptosporidium Exam - Final Post-procedural complaints: none Patient Feedback: Patient satisfied with anesthetic care.
--- NOTE | 2021-04-30 10:10 | WPDGIPROGNO ---
Progress Note: A&P Assessment and Plan (1) Cyclic vomiting syndrome: Code(s): R11.15 - Cyclical vomiting syndrome unrelated to migraine Status: Acute Assessment and Plan: Patient with resolved nausea vomiting at present. Appears to have cyclic vomiting syndrome would recommend continuing bland diet. Ppi therapy will continue. Will follow up in office at scheduled visit in several months. Discharge when okay with primary care service. (2) IBS (irritable bowel syndrome): Code(s): K58.9 - Irritable bowel syndrome without diarrhea Status: Acute Assessment and Plan: Patient appears to have irritable bowel syndrome. Abdominal cramping likely related to IBS. Will restart Bentyl. (3) History of Gary fundoplication: Code(s): Z98.890 - Other specified postprocedural states Status: Acute Assessment and Plan: Gary fundoplication appears intact. Hopefully this will minimize her acid reflux symptoms. (4) GERD (gastroesophageal reflux disease): Qualifiers: Esophagitis presence: esophagitis presence not specified Qualified Code(s): K21.9 - Gastro-esophageal reflux disease without esophagitis Code(s): K21.9 - Gastro-esophageal reflux disease without esophagitis Status: Chronic (5) Atrial fibrillation: Code(s): I48.91 - Unspecified atrial fibrillation Status: Acute Subjective Date/time seen: 04/30/21 10:10 Patient much less nauseated today. Tolerating general diet. Notes some mid abdominal cramping. Previously this was controlled with Bentyl. Review of Systems Review of Systems: All systems reviewed & are unremarkable except as noted in HPI and below Exam Narrative: Physical exam reveals patient to be alert comfortable at rest. HEENT exam unremarkable. Patient is anicteric. Lungs are clear. Heart without murmur. Abdomen bowel sounds present soft nontender with no organomegaly. Objective Data Vital Signs Vital Signs: Vital Signs - 24 hr 04/29/21 11:17 04/29/21 12:10 04/29/21 12:20 Temperature 97.6 F Pulse Rate 79 84 78 Respiratory Rate 20 16 13 Blood Pressure 123/67 95/49 L 113/71 Pulse Oximetry 100 100 100 04/29/21 12:30 04/29/21 14:00 04/29/21 16:52 Temperature 96.6 F L Pulse Rate 70 71 Respiratory Rate 14 18 Blood Pressure 112/67 116/67 Pulse Oximetry 100 100 99 04/29/21 21:51 Temperature 97.6 F Pulse Rate 65 Respiratory Rate 18 Blood Pressure 115/67 Pulse Oximetry 100 Intake/Output Intake/Output: Intake & Output 04/27/21 04/28/21 04/29/21 04/30/21 23:59 23:59 23:59 23:59 Intake Total 3200 2900 3380 530 Output Total 300 4 Balance 2900 2900 3376 530 Meds/Results Medications: Active Medications Generic Name Dose Route Start Last Admin Trade Name Freq PRN Reason Stop Dose Admin Al Hydrox/Mg Hydrox/Simethicone 10 ml 04/26/21 10:46 04/27/21 08:20 Mag Hydrox/Al Hydrox/Simeth 30 Ml Udc PO 10 ml QID PRN Administration Acid Reflux Amitriptyline HCl 10 mg 04/28/21 21:00 04/29/21 22:11 Amitriptyline Hcl 10 Mg Tablet PO 10 mg HS MERON Administration Apixaban 5 mg 04/27/21 21:00 04/30/21 08:31 Apixaban 5 Mg Tablet PO 5 mg Q12HR MERON Administration Bupropion HCl 100 mg 04/26/21 09:00 04/30/21 08:31 Bupropion Hcl Sr (12hr) 100 Mg Tabcr PO 100 mg Q12HR MERON Administration Clonazepam 0.5 mg 04/30/21 09:24 Clonazepam (*Crx) 0.5 Mg Tablet PO Q12HR MERON Sodium Chloride 1,000 mls @ 125 mls/hr 04/26/21 01:50 04/30/21 08:34 Normal Saline Iv IV CONT 125 mls/hr .Q8H MERON Administration Potassium Chloride 500 mls @ 125 mls/hr 04/30/21 08:00 04/30/21 09:54 Kcl 40 Meq/D5w 500 Ml Peripheral IVPB 04/30/21 11:59 125 mls/hr ONCE ONE Administration Lorazepam 0.5 mg 04/28/21 12:15 04/30/21 00:34 Lorazepam Inj (*Crx) 2 Mg/Ml Vial IV PUSH 0.5 mg Q6H PRN Administration Anxiety Ondansetron HCl 4 mg
[2021-04-30] MEDS: clonazePAM (*CRX) 0.5 MG TABLET PO ×2 (11:51→21:10)
[2021-04-30] MEDS: DICYCLOMINE HCL 10 MG CAPSULE PO ×2 (11:52→16:15)
[2021-04-30 14:00] VITALS: BP 113/63; PULSE 82; RESP 18; TEMP 37.2; O2SAT 100
--- NOTE | 2021-04-30 15:48 | PM.IMPN ---
Progress Note: A&P Assessment and Plan (1) IBS (irritable bowel syndrome): Code(s): K58.9 - Irritable bowel syndrome without diarrhea Status: Acute Assessment and Plan: likely cause of patient's symptoms, each being treated individually as below. will continue patient's GI regimen, including Bentyl and simethicone and Protonix. Noted patient is on dicyclomine at home, will continue. Patient follows closely with GI specialist, who has been consulted, Planning for EGD tomorrow. Noted the GI has started the patient on amitriptyline and sucralfate. EGD did today did not reveal any source of patient's symptoms. (2) Atrial fibrillation: Code(s): I48.91 - Unspecified atrial fibrillation Status: Acute Assessment and Plan: patient reports being diagnosed with atrial fibrillation in the past. Follows with manager of community relations, who advised for her to not take beta-blockers as her heart rate becomes on safely bradycardic. Therefore will hold off on beta blockers while she is admitted. started on Eliquis, however holding for procedure tomorrow. Hemoglobin dropped shortly after starting anticoagulation, is stable at 10. Currently holding. (3) Nausea & vomiting: Qualifiers: Vomiting Intractability: intractable Vomiting type: unspecified Qualified Code(s): R11.2 - Nausea with vomiting, unspecified Code(s): R11.2 - Nausea with vomiting, unspecified Status: Acute Assessment and Plan: Complex history, has tried several interventions to treat abdominal pain with nausea and vomiting, however no ultimate resolution Follows closely with GI specialist, who is affiliated with [facility], appreciate recommendations. Zofran not doing well for nausea, will change to IV Tigan. Pain control with p.r.n. morphine. 2 mg q.4 hours. (4) Chronic abdominal pain: Code(s): R10.9 - Unspecified abdominal pain; G89.29 - Other chronic pain Status: Chronic Assessment and Plan: Suspect related to IBS, patient has had cholecystectomy. Lipase normal on admission. No acute changes in abdominal pain in last 24 hours. No signs of rigidity or peritoneal signs on physical exam. Questionable history of celiac disease? GI on consult, appreciate recommendations. Continue p.r.n. morphine (5) Anxiety and depression: Code(s): F41.9 - Anxiety disorder, unspecified; F32.9 - Major depressive disorder, single episode, unspecified Status: Chronic Assessment and Plan: Continue bupropion. currently patient does not feel depressed, homicidal, suicidal. Is on Klonopin, however having difficulty tolerating p.o. meds, so will change to IV Ativan. (6) Chronic diarrhea: Code(s): K52.9 - Noninfective gastroenteritis and colitis, unspecified Status: Acute Assessment and Plan: Stooled pathology sent, including C diff toxin. If negative can start loperamide. (7) Hepatic steatosis: Code(s): K76.0 - Fatty (change of) liver, not elsewhere classified Status: Chronic (8) GERD (gastroesophageal reflux disease): Qualifiers: Esophagitis presence: esophagitis presence not specified Qualified Code(s): K21.9 - Gastro-esophageal reflux disease without esophagitis Code(s): K21.9 - Gastro-esophageal reflux disease without esophagitis Status: Chronic Assessment and Plan: Continue Protonix from home. However will have to be IV, as patient cannot tolerate p.o. (9) History of Gary fundoplication: Code(s): Z98.890 - Other specified postprocedural states Status: Acute Additional Plan These he is a 51-year-old lady, who was admitted to the hospital medicine service on April 25, 2021 for nausea, abdominal pain vomiting and diarrhea. The patient was treated with IV bowel rest, supportive care and symptomatic management for nausea and abdominal pain. She was started on a clear liquid diet today. She is cu
[2021-04-30 16:50] LABS: Anion Gap 5 mmol/L (8-16); Blood Urea Nitrogen 2 mg/dL (7-17); Calcium 8.4 mg/dL (8.4-10.2); Carbon Dioxide 26 mmol/L (22-30); Chloride 111 mmol/L (98-107); Estimated CRCL calculation 106 ml/min; Estimated Glomerular Filt Rate > 60; Glucose 103 mg/dL (65-110); Potassium 3.3 mmol/L (3.4-5.0); Sodium 142 mmol/L (137-145)
[2021-04-30 20:35] LABS: Haptoglobin 104 mg/dL (43-212)
[2021-04-30] MEDS: AMITRIPTYLINE HCL 10 MG TABLET PO (21:10)
[2021-04-30 21:30] VITALS: BP 122/79; PULSE 72; RESP 18; TEMP 37.1; O2SAT 100
[2021-05-01] MEDS: ACETAMINOPHEN 325 MG TABLET 650 MG PO (01:05)
[2021-05-01 01:07] LABS: Add Urine Microscopic? NO; Appearance Urine Clear (Clear); Bilirubin Urine Negative (Negative); Blood Urine Negative (Negative); Color Urine Straw (Yellow); Glucose Urine UA Negative (Negative); Ketones Urine Negative (Negative); Leukocyte Esterase Ur Negative LEU/UL (NEGATIVE); Nitrate Urine Negative (Negative); Protein Urine Negative (Negative); Specific Grav Ur 1.006 (1.001-1.035); Urobilinogen Urine Negative mg/dL (<2.0)
[2021-05-01] MEDS: SODIUM CHLORIDE 0.9% IV 1,000 ML 125 ML IV CONT (01:07)
[2021-05-01 05:34] VITALS: BP 123/63; PULSE 60; RESP 18; TEMP 36.6; O2SAT 98
[2021-05-01 08:44] LABS: Hemoglobin 10.2 g/dL (12.0-15.0); Mean Corpuscular HGB Conc 31.9 g/dl (32-36); Mean Corpuscular Hemoglobin 29.1 pg (26-34); Mean Corpuscular Volume 91.4 fl (80-100); Mean Platelet Volume 10.5 fl (7.4-10.4); Platelet Count Result 279 k/mm3 (150-375); White Blood Count 6.2 K/mm3 (4.5-10.0)
[2021-05-01 08:53] LABS: Anion Gap 5 mmol/L (8-16); Calcium 8.4 mg/dL (8.4-10.2); Carbon Dioxide 27 mmol/L (22-30); Chloride 109 mmol/L (98-107); Estimated CRCL calculation 106 ml/min; Estimated Glomerular Filt Rate > 60; Glucose 105 mg/dL (65-110); Magnesium 1.7 mg/dL (1.6-2.3); Potassium 3.3 mmol/L (3.4-5.0); Sodium 141 mmol/L (137-145)
[2021-05-01 09:18] LABS: Blood Urea Nitrogen < 2 mg/dL (7-17)
[2021-05-01] MEDS: APIXABAN 5 MG TABLET PO (09:48)
[2021-05-01] MEDS: buPROPion HCL SR (12HR) 100 MG TABCR PO (09:48)
[2021-05-01] MEDS: POTASSIUM CHLORIDE 20 MEQ PACKET (FOR LIQUID) 40 MEQ PO (09:49)
[2021-05-01] MEDS: DICYCLOMINE HCL 10 MG CAPSULE PO (09:49)
[2021-05-01] MEDS: clonazePAM (*CRX) 0.5 MG TABLET PO (09:49)
[2021-05-01] MEDS: PANTOPRAZOLE SODIUM IV 40 MG VIAL IV PUSH (09:49)
[2021-05-01 10:06] LABS: Hematocrit 30.6 % (35.0-45.0); Hemoglobin 9.9 g/dL (11.7-15.5); MCH 29.1 pg (27.0-33.0); RDW 14.4 % (11.0-15.0)
--- NOTE | 2021-05-01 10:53 | WPDGIPROGNO ---
Progress Note: A&P Assessment and Plan (1) Cyclic vomiting syndrome: Code(s): R11.15 - Cyclical vomiting syndrome unrelated to migraine Status: Acute Assessment and Plan: Patient appears to have cyclical vomiting syndrome. Now she is able to tolerate diet. Hopefully can be followed as an outpatient. (2) Atrial fibrillation: Code(s): I48.91 - Unspecified atrial fibrillation Status: Acute Assessment and Plan: Patient has underlying atrial fibrillation at the present time see no contraindication to anticoagulant. (3) Nausea & vomiting: Qualifiers: Vomiting Intractability: intractable Vomiting type: unspecified Qualified Code(s): R11.2 - Nausea with vomiting, unspecified Code(s): R11.2 - Nausea with vomiting, unspecified Status: Acute Assessment and Plan: The nausea vomiting she was admitted with his now gone. Able to tolerate regular diet. (4) Chronic abdominal pain: Code(s): R10.9 - Unspecified abdominal pain; G89.29 - Other chronic pain Status: Chronic Assessment and Plan: Patient has chronic abdominal pain somewhat suspicious for irritable bowel syndrome. Now on a trial of Bentyl which hopefully can continue. She will continue high-fiber diet as well. Subjective Date/time seen: 05/01/21 10:53 Patient continues to report vague epigastric discomfort. She notes abdominal cramping. She no longer has nausea and vomiting however Review of Systems Review of Systems: All systems reviewed & are unremarkable except as noted in HPI and below Exam Narrative: physical exam patient is alert. Lungs are clear. Heart without murmur. Abdomen is soft no localized tenderness no masses evident. Objective Data Vital Signs Vital Signs: Vital Signs - 24 hr 04/30/21 14:00 04/30/21 21:30 05/01/21 05:34 Temperature 98.9 F 98.8 F 97.9 F Pulse Rate 82 72 60 Respiratory Rate 18 18 18 Blood Pressure 113/63 122/79 123/63 Pulse Oximetry 100 100 98 Intake/Output Intake/Output: Intake & Output 04/28/21 04/29/21 04/30/21 05/01/21 23:59 23:59 23:59 23:59 Intake Total 2900 3380 2740 2240 Output Total 4 Balance 2900 3376 2740 2240 Meds/Results Medications: Active Medications Generic Name Dose Route Start Last Admin Trade Name Freq PRN Reason Stop Dose Admin Al Hydrox/Mg Hydrox/Simethicone 10 ml 04/26/21 10:46 04/27/21 08:20 Mag Hydrox/Al Hydrox/Simeth 30 Ml Udc PO 10 ml QID PRN Administration Acid Reflux Amitriptyline HCl 10 mg 04/28/21 21:00 04/30/21 21:10 Amitriptyline Hcl 10 Mg Tablet PO 10 mg HS MERON Administration Apixaban 5 mg 04/27/21 21:00 05/01/21 09:48 Apixaban 5 Mg Tablet PO 5 mg Q12HR MERON Administration Bupropion HCl 100 mg 04/26/21 09:00 05/01/21 09:48 Bupropion Hcl Sr (12hr) 100 Mg Tabcr PO 100 mg Q12HR MERON Administration Clonazepam 0.5 mg 04/30/21 09:24 05/01/21 09:49 Clonazepam (*Crx) 0.5 Mg Tablet PO 0.5 mg Q12HR MERON Administration Dicyclomine HCl 10 mg 04/30/21 09:00 05/01/21 09:49 Dicyclomine Hcl 10 Mg Capsule PO 10 mg BID MERON Administration Sodium Chloride 1,000 mls @ 125 mls/hr 04/26/21 01:50 05/01/21 09:47 Normal Saline Iv IV CONT Infused .Q8H MERON Infusion Lorazepam 0.5 mg 04/28/21 12:15 04/30/21 00:34 Lorazepam Inj (*Crx) 2 Mg/Ml Vial IV PUSH 0.5 mg Q6H PRN Administration Anxiety Ondansetron HCl 4 mg 04/28/21 11:36 04/29/21 07:32 Ondansetron Inj 4 Mg/2 Ml Vial IV PUSH 4 mg Q4H PRN Administration Nausea And Vomiting Pantoprazole Sodium 40 mg 04/28/21 21:00 05/01/21 09:49 Pantoprazole Sodium Iv 40 Mg Vial IV PUSH 40 mg Q12HR MERON Administration Potassium Chloride 40 meq 05/01/21 09:00 05/01/21 09:49 Potassium Chloride 20 Meq Packet (For Liquid) PO Not Given BID MERON Simethicone 125 mg 04/26/21 10:46 04/29/21 18:03 Simethicone 125 Mg Chew Tab PO 125 mg
--- NOTE | 2021-05-01 10:57 | PM.DS ---
DS: Admitting Diagnosis Admitting Diagnosis Chief Complaint: nausea and vomiting DS: Discharge Diagnosis Discharge Diagnosis (1) IBS (irritable bowel syndrome): Code(s): K58.9 - Irritable bowel syndrome without diarrhea Status: Acute Assessment and Plan: likely cause of patient's symptoms, each being treated individually as below. will continue patient's GI regimen, including Bentyl and simethicone and Protonix. Noted patient is on dicyclomine at home, will continue. Patient follows closely with GI specialist, who has been consulted, Planning for EGD tomorrow. Noted the GI has started the patient on amitriptyline and sucralfate. EGD did today did not reveal any source of patient's symptoms. (2) Atrial fibrillation: Code(s): I48.91 - Unspecified atrial fibrillation Status: Acute Assessment and Plan: patient reports being diagnosed with atrial fibrillation in the past. 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 Therefore will hold off on beta blockers while she is admitted. started on Eliquis, however holding for procedure tomorrow. Hemoglobin dropped shortly after starting anticoagulation, is stable at 10. Currently holding. (3) Nausea & vomiting: Qualifiers: Vomiting Intractability: intractable Vomiting type: unspecified Qualified Code(s): R11.2 - Nausea with vomiting, unspecified Code(s): R11.2 - Nausea with vomiting, unspecified Status: Acute Assessment and Plan: Complex history, has tried several interventions to treat abdominal pain with nausea and vomiting, however no ultimate resolution Follows closely with GI specialist, who is affiliated with [facility], appreciate recommendations. Zofran not doing well for nausea, will change to IV Tigan. Pain control with p.r.n. morphine. 2 mg q.4 hours. (4) Chronic abdominal pain: Code(s): R10.9 - Unspecified abdominal pain; G89.29 - Other chronic pain Status: Chronic Assessment and Plan: Suspect related to IBS, patient has had cholecystectomy. Lipase normal on admission. No acute changes in abdominal pain in last 24 hours. No signs of rigidity or peritoneal signs on physical exam. Questionable history of celiac disease? GI on consult, appreciate recommendations. Continue p.r.n. morphine (5) Anxiety and depression: Code(s): F41.9 - Anxiety disorder, unspecified; F32.9 - Major depressive disorder, single episode, unspecified Status: Chronic Assessment and Plan: Continue bupropion. currently patient does not feel depressed, homicidal, suicidal. Is on Klonopin, however having difficulty tolerating p.o. meds, so will change to IV Ativan. (6) Chronic diarrhea: Code(s): K52.9 - Noninfective gastroenteritis and colitis, unspecified Status: Acute Assessment and Plan: Stooled pathology sent, including C diff toxin. If negative can start loperamide. (7) Hepatic steatosis: Code(s): K76.0 - Fatty (change of) liver, not elsewhere classified Status: Chronic (8) GERD (gastroesophageal reflux disease): Qualifiers: Esophagitis presence: esophagitis presence not specified Qualified Code(s): K21.9 - Gastro-esophageal reflux disease without esophagitis Code(s): K21.9 - Gastro-esophageal reflux disease without esophagitis Status: Chronic Assessment and Plan: Continue Protonix from home. However will have to be IV, as patient cannot tolerate p.o. (9) History of Gary fundoplication: Code(s): Z98.890 - Other specified postprocedural states Status: Acute DS: Summary Hospital Course Reason for hospitalization: Chief Complaint: nausea and vomiting Narrative: This is a 51- year old lady with a past medical history including but not limited to anxiety, atrial fibrillation, GERD, cholecystitis, Gary fu
[2021-05-01 21:28] LABS: H pylori Ag Stool Not Detected (Not Detected)
[2021-05-02 15:57] LABS: Gliadin AB, IgG 5 Units (<20); Reticulin IgA Negative (Negative); TTG IGA AB 1 U/mL (<4)
[2021-05-02 17:31] LABS: Norovirus RNA PCR, Stool NOT DETECTED
[2021-05-03 21:07] LABS: Rotavirus Stool Not Detected
== END 2021-05-01 11:32 | disposition home or self-care (01) | DRG 392 ==
LOC: ANHED 04-26 01:50 → ANH3MEDSUR 04-26 02:13
PROVIDERS: Internal Medicine; Internal Medicine Gastroenterology; Nurse Practitioner; Admitting Provider Internal Medicine; Emergency Provider Emergency Medicine; PCP Family Medicine; Visit Provider Family Medicine
PROC: 0DJ08ZZ Inspection of Upper Intestinal Tract, Via Natural or Artificial Opening Endoscopic (ICD-10-PCS; CPT 43235; principal; 2021-04-29 12:00)
DX: K58.0 Irritable bowel syndrome with diarrhea (principal); R11.15 Cyclical vomiting syndrome unrelated to migraine; G89.29 Other chronic pain; E87.6 Hypokalemia; F41.9 Anxiety disorder, unspecified; F32.9 Major depressive disorder, single episode, unspecified; K76.0 Fatty (change of) liver, not elsewhere classified; K21.9 Gastro-esophageal reflux disease without esophagitis; F17.290 Nicotine dependence, other tobacco product, uncomplicated; I48.91 Unspecified atrial fibrillation; D64.9 Anemia, unspecified; K57.90 Diverticulosis of intestine, part unspecified, without perforation or abscess without bleeding; K64.9 Unspecified hemorrhoids; F12.10 Cannabis abuse, uncomplicated; G43.909 Migraine, unspecified, not intractable, without status migrainosus; M19.90 Unspecified osteoarthritis, unspecified site; Z79.899 Other long term (current) drug therapy; Z90.49 Acquired absence of other specified parts of digestive tract; Z98.890 Other specified postprocedural states
CPT/HCPCS: 36415; 74018; 74177; 80048; 80053; 81003; 82607; 82728; 82746; 82948; 83010; 83021; 83516; 83540; 83550; 83605; 83615; 83690; 83735; 84100; 84439; 84443; 84466; 84480; 85014; 85018; 85025; 85027; 85046; 86255; 87015; 87045; 87177; 87209; 87269; 87272; 87324; 87338; 87425; 87427; 87798; 89055; 93005; 96361; 96365; 96366; 96372; 96374; 96375; 96376; 99285; A9270; C9113; G0378; J0131; J1650; J2060; J2270; J2405; J2704; J3250; J3475; J3480; J7030; J7120; Q9967

== ENCOUNTER 2021-05-28 19:58 | Emergency (ER) | payer MEDICARE, MEDICAID, SELFPAY ==
[2021-05-28 20:02] VITALS: BP 108/68; PULSE 70; RESP 19; TEMP 36.6; O2SAT 99
[2021-05-28 20:53] LABS: Basophils Percent Auto 0.3 % (0.2-1.2); Eosinophils Absolute Auto 0.2 K/mm3 (0-0.3); Eosinophils Percent Auto 1.5 % (0-4.4); Hematocrit 35.7 % (37.0-47.0); Hemoglobin 11.4 g/dL (12.0-15.0); Immature Granulocyte Absolute 0.05 K/mm3 (0.00-0.031); Immature Granulocyte Percent A 0.4 % (0-0.5); Lymphocytes Absolute Auto 1.72 K/mm3 (0.9-3.2); Lymphocytes Percent Auto 13.5 % (18.3-44.2); Mean Corpuscular HGB Conc 31.9 g/dl (32-36); Mean Corpuscular Hemoglobin 29.1 pg (26-34); Mean Corpuscular Volume 91.1 fl (80-100); Mean Platelet Volume 10.6 fl (7.4-10.4); Monocytes Percent Auto 7.9 % (2.6-8.5); Neutrophils Absolute Auto 9.8 K/mm3 (1.3-6.7); Neutrophils Percent Auto 76.4 % (45.5-73.1); Platelet Count Result 336 k/mm3 (150-375); Red Blood Count 3.92 M/mm3 (4.2-5.4); Red Cell Distribution Width 15.3 % (11.5-14.5); White Blood Count 12.8 K/mm3 (4.5-10.0)
[2021-05-28 21:06] LABS: Alanine Aminotransferase 23 U/L (4-35); Albumin Level 4.9 g/dL (3.5-5.1); Alkaline Phosphatase 81 U/L (38-126); Anion Gap 9 mmol/L (8-16); Aspartate Amino Transferase 43 U/L (14-36); Bilirubin,Total 0.2 mg/dL (0.2-1.3); Blood Urea Nitrogen 14 mg/dL (7-17); Calcium 9.4 mg/dL (8.4-10.2); Carbon Dioxide 28 mmol/L (22-30); Chloride 102 mmol/L (98-107); Estimated CRCL calculation 69 ml/min; Estimated Glomerular Filt Rate > 60; Glucose 105 mg/dL (65-110); Lipase 260 U/L (23-300); Sodium 139 mmol/L (137-145)
--- NOTE | 2021-05-28 23:05 | ECG_ITS ---
Measurements Intervals [place] Rate: 65 P: 29 [place]: 131 QRS: 39 QRSD: 82 T: 52 QT: 408 QTc: 426 Interpretive Statements SINUS RHYTHM SUPRAVENTRICULAR TRIGEMINY EARLY PRECORDIAL R/S TRANSITION BASELINE ARTIFACT- II, III, AVR, AVF, V2-V6 ABNORMAL ECG Electronically Signed On 05-29-2021 7:00:27 CDT by Cabrera Moya D.O.
--- NOTE | 2021-05-28 23:09 | ED.NAVMDI ---
HPI - Nausea/Vomiting/Diarrhea General Chief complaint: Nausea/Vomiting/Diarrhea Stated complaint: Vomiting for the last hour Time Seen by Provider: 05/28/21 22:52 Source: patient and RN notes reviewed Mode of arrival: ambulatory Limitations: no limitations History of Present Illness HPI Narrative: This is a 51 year old female with history of cyclic vomiting syndrome and IBS who presents for evaluation of nausea, vomiting and abdominal pain. She reports approximately around 7 pm she developed nausea. She reports she developed lower abdominal pain and she became warm and clammy. She felt like she was going to pass out so she called EMS. She started vomiting for 1 hours. EMS gave patient gave patient zofran 4 mg and she reports it settled her stomach, but she her nausea is return. She reports she had solid BM once she got to her room here. She states this symptoms are no different than what she has been evaluated for at [facility]. She has had EDG and evaluation by Dr. Salmeron. Related Data Home Medications Medication Instructions Recorded Confirmed alum-mag hydroxide-simeth [Mylanta 10 ml PO QID PRN 05/28/20 04/26/21 Maximum Strength] simethicone [Gas-X Extra Strength] 125 mg PO QID PRN 05/28/20 04/26/21 sumatriptan succinate 100 mg PO PRN PRN 05/28/20 04/26/21 clonazepam 0.5 mg tablet 0.5 mg PO BID tablet 04/17/21 04/26/21 dicyclomine 10 mg capsule 20 mg PO BID cap 04/17/21 04/26/21 metoprolol succinate 25 mg 25 mg PO DAILY 04/17/21 04/26/21 tablet,extended release 24 hr bupropion HCl 100 mg PO BID 04/26/21 04/26/21 Allergies Allergy/AdvReac Type Severity Reaction Status Date / Time prochlorperazine AdvReac Severe Confusion Verified 04/29/21 11:16 metoclopramide [From Reglan] AdvReac Intermediate anxiety Verified 04/29/21 11:16 azithromycin AdvReac Unknown STOMACH Verified 04/29/21 11:16 UPSET Review of Systems Review of Systems: All systems reviewed & are unremarkable except as noted in HPI and below PMFSH Past Medical History Medical History Adenomatous colon polyp Anxiety and depression Arthritis Atrial fibrillation Celiac disease Diverticulosis GERD (gastroesophageal reflux disease) Migraine headache Neuropathy Surgical History Surgical History History of delivery History of cholecystectomy History of Gary fundoplication History of tubal ligation Family History Family History Mother Family history of elevated blood lipids Family history of arthritis Sibling Family history of arthritis Grandparent Cerebrovascular accident Family history of cardiovascular disease Hypertension Diabetes mellitus Social History Social History Smoking packs per day: 0.5 Smoking cigarettes per day: 10.0 Years smoked: 10 Smoking pack-years: 5.00 Smoking status: Current every day smoker Tobacco type: e-cigarettes/vaping Alcohol intake: never Substance use: current Substance use type: marijuana Last use: 05/21/20 Gender identity (if verbalized by the patient): Female Sexual Orientation (if Verbalized by the Patient): Straight or Heterosexual Spiritual care concerns: No Exam Const: General: no acute distress and alert Orientation/consciousness: patient oriented x3 Eyes: EOM: EOMs intact bilaterally Chest: Chest palpation & inspection: normal inspection of the chest Resp: Effort & Inspection: normal respiratory effort and no retractions Auscultation: clear to auscultation bilaterally Cardio: Rate: regular rate Rhythm: regular rhythm Heart sounds: no murmurs GI: GI Palp: Yes Soft to palpation, Yes Tenderness to palpation present (GI) (mild diffuse,), No Guarding due to palpation present (GI), No Rigid due to palpation, No Hernia pr
[2021-05-28 23:15] LABS: Add Urine Microscopic? NO; Appearance Urine Clear (Clear); Bilirubin Urine Negative (Negative); Blood Urine Negative (Negative); Color Urine Yellow (Yellow); Glucose Urine UA Negative (Negative); Ketones Urine Negative (Negative); Leukocyte Esterase Ur Negative LEU/UL (Negative); Nitrate Urine Negative (Negative); Protein Urine Negative (Negative); Urobilinogen Urine Negative mg/dL (<2.0)
[2021-05-28 23:29] VITALS: BP 110/66; PULSE 66; RESP 13; TEMP 36.6; O2SAT 99
[2021-05-28 23:40] LABS: Troponin I < 0.012 ng/mL (0.000-0.034)
[2021-05-28] MEDS: SODIUM CHLORIDE 0.9% IV 1,000 ML 999 ML IV CONT (23:45)
[2021-05-28] MEDS: ONDANSETRON INJ 4 MG/2 ML VIAL IV PUSH (23:47)
[2021-05-28] MEDS: DICYCLOMINE HCL INJ 20 MG/2 ML VIAL IM (23:49)
[2021-05-29 00:31] VITALS: BP 105/70; PULSE 85; RESP 14; O2SAT 97
[2021-05-29 01:15] VITALS: BP 95/51; PULSE 80
[2021-05-29 01:16] VITALS: BP 110/67; BP 120/75; PULSE 87; PULSE 88
[2021-05-29 01:17] VITALS: BP 120/75; PULSE 84; RESP 13; O2SAT 98
[2021-05-29] MEDS: ONDANSETRON INJ 4 MG/2 ML VIAL IV PUSH (01:25)
[2021-05-29] MEDS: PANTOPRAZOLE SODIUM IV 40 MG VIAL IV PUSH (01:28)
[2021-05-29 02:29] VITALS: BP 104/67; PULSE 90; RESP 18; O2SAT 98
[2021-05-29 04:35] VITALS: BP 102/65; PULSE 81; RESP 18; O2SAT 97
== END 2021-05-29 04:40 | disposition home or self-care (01) ==
PROVIDERS: Emergency Medicine; Emergency Provider General Practice; PCP Family Medicine
DX: K58.9 Irritable bowel syndrome, unspecified (principal); R11.2 Nausea with vomiting, unspecified; I48.91 Unspecified atrial fibrillation; K90.0 Celiac disease; K21.9 Gastro-esophageal reflux disease without esophagitis; G62.9 Polyneuropathy, unspecified; F41.9 Anxiety disorder, unspecified; F32.9 Major depressive disorder, single episode, unspecified; F17.290 Nicotine dependence, other tobacco product, uncomplicated; Z86.010 Personal history of colon polyps
CPT/HCPCS: 36415; 80053; 81003; 81025; 83690; 84484; 85025; 93005; 96361; 96372; 96374; 96375; 96376; 99284; C9113; J0500; J2405; J7030

== ENCOUNTER 2021-08-08 09:28 | Emergency (ER) | payer MEDICARE, MEDICAID, SELFPAY ==
[2021-08-08] VITALS (8 sets, daily range): BP systolic 99–123; BP diastolic 54–87; PULSE 59–85; RESP 14–19; TEMP 35.8–36.8; O2SAT 97–100
[2021-08-08 09:59] LABS: Basophils Absolute Auto 0.1 K/mm3 (0.0-0.1); Basophils Percent Auto 0.7 % (0.2-1.2); Eosinophils Absolute Auto 0.2 K/mm3 (0-0.3); Eosinophils Percent Auto 2.9 % (0-4.4); Hemoglobin 12.1 g/dL (12.0-15.0); Immature Granulocyte Absolute 0.01 K/mm3 (0.00-0.031); Immature Granulocyte Percent A 0.1 % (0-0.5); Lymphocytes Absolute Auto 1.49 K/mm3 (0.9-3.2); Lymphocytes Percent Auto 21.6 % (18.3-44.2); Mean Corpuscular HGB Conc 32.7 g/dl (32-36); Mean Corpuscular Hemoglobin 28.1 pg (26-34); Mean Platelet Volume 9.8 fl (7.4-10.4); Monocytes Absolute Auto 0.8 K/mm3 (0.1-0.6); Monocytes Percent Auto 11.9 % (2.6-8.5); Neutrophils Absolute Auto 4.3 K/mm3 (1.3-6.7); Neutrophils Percent Auto 62.8 % (45.5-73.1); Platelet Count Result 392 k/mm3 (150-375); Red Cell Distribution Width 15.1 % (11.5-14.5); White Blood Count 6.9 K/mm3 (4.5-10.0)
[2021-08-08 10:06] LABS: Alanine Aminotransferase 15 U/L (4-35); Albumin Level 4.7 g/dL (3.5-5.1); Alkaline Phosphatase 93 U/L (38-126); Anion Gap 10 mmol/L (8-16); Aspartate Amino Transferase 29 U/L (14-36); Bilirubin,Total 0.6 mg/dL (0.2-1.3); Blood Urea Nitrogen 9 mg/dL (7-17); Calcium 9.4 mg/dL (8.4-10.2); Carbon Dioxide 27 mmol/L (22-30); Chloride 104 mmol/L (98-107); Estimated CRCL calculation 61 ml/min; Estimated Glomerular Filt Rate > 60; Glucose 126 mg/dL (65-110); Lipase 201 U/L (23-300); Potassium 3.8 mmol/L (3.4-5.0); Sodium 141 mmol/L (137-145)
[2021-08-08 12:08] LABS: Add Urine Microscopic? YES; Appearance Urine Cloudy (Clear); Bilirubin Urine Negative (Negative); Blood Urine Negative (Negative); Color Urine Yellow (Yellow); Glucose Urine UA Negative (Negative); Ketones Urine Negative (Negative); Leukocyte Esterase Ur Negative LEU/UL (Negative); Mucus Urine Rare /lpf; Nitrate Urine Negative (Negative); Protein Urine Negative (Negative); RBC Urine 0-2 /hpf (0-2); Specific Grav Ur 1.012 (1.001-1.035); Squamous Epithelial Cell Urine Many /hpf (Few); Urobilinogen Urine Negative mg/dL (<2.0)
[2021-08-08] MEDS: HALOPERIDOL LACTATE 5 MG/ML VIAL IV PUSH (12:21)
[2021-08-08] MEDS: diphenhydrAMINE HCl INJ 50 MG/ML VIAL IV PUSH (13:06)
[2021-08-08] MEDS: LACTATED RINGERS 1,000 ML 999 ML IV CONT (13:11)
--- NOTE | 2021-08-08 14:54 | ED.NAVMDI ---
HPI - Nausea/Vomiting/Diarrhea General Chief complaint: Nausea/Vomiting/Diarrhea Stated complaint: Nausea/vomiting/diarrhea. Time Seen by Provider: 08/08/21 11:13 Source: patient Mode of arrival: ambulatory Limitations: no limitations History of Present Illness HPI Narrative: 51-year-old female Patient states she has a history of cyclical vomiting and of irritable bowel, sees Dr Salmeron Also h/o AF She reports nausea and vomiting for several days and diarrhea since last night She has some mild diffuse crampy abdominal pain Denies fever, no hematuria or dysuria No blood in the stool or in the emesis At home she has Zofran which she ran out of last night but which was not helping very much as well as Bentyl which she last took today, also not helpful Related Data Home Medications Medication Instructions Recorded Confirmed alum-mag hydroxide-simeth [Mylanta 10 ml PO QID PRN 05/28/20 06/20/21 Maximum Strength] simethicone [Gas-X Extra Strength] 125 mg PO QID PRN 05/28/20 06/20/21 sumatriptan succinate 100 mg PO PRN PRN 05/28/20 06/20/21 clonazepam 0.5 mg tablet 0.5 mg PO BID tablet 04/17/21 06/20/21 metoprolol succinate 25 mg 25 mg PO DAILY 04/17/21 06/20/21 tablet,extended release 24 hr bupropion HCl 100 mg PO BID 04/26/21 06/20/21 flecainide 50 mg tablet 50 mg PO Q12H 06/20/21 06/20/21 sulfamethoxazole 800 1 tablet PO Q12H 06/20/21 06/20/21 mg-trimethoprim 160 mg tablet Allergies Allergy/AdvReac Type Severity Reaction Status Date / Time prochlorperazine AdvReac Severe Confusion Verified 08/08/21 11:46 metoclopramide [From Reglan] AdvReac Intermediate anxiety Verified 08/08/21 11:46 azithromycin AdvReac Unknown STOMACH Verified 08/08/21 11:46 UPSET Review of Systems Review of Systems: All systems reviewed & are unremarkable except as noted in HPI and below Constitutional: Constitutional: Reports no additional constitutional complaints, Denies chills, Reports fatigue, Denies fever(s), Denies headache(s) and Reports weakness Eyes: Eyes: Reports no additional eye complaints and Denies change in vision ENT: Denies headache(s) and Denies sore throat Cardiovascular: Cardiovascular: Denies chest pain and Denies dyspnea Respiratory: Respiratory: Denies cough and Denies dyspnea Gastrointestinal: Gastrointestinal: Reports abdominal pain, Reports diarrhea, Reports nausea and Reports vomiting Genitourinary: Genitourinary: Denies urinary frequency and Denies dysuria Musculoskeletal: Musculoskeletal: Denies deformity, Denies arthralgias, Denies joint swelling and Denies numbness Integumentary/Breasts: Skin/Breast: Denies rash and Denies wounds Neurologic: Denies headache(s), Denies focal weakness and Denies numbness Psychiatric: Psychiatric: Reports no additional psychiatric complaints Endocrine: Endocrine: Reports no additional endocrine complaints Hematologic/Lymphatic: Hematologic/Lymphatic: Reports no additional hematologic/lymphatic complaints Allergic/Immunologic: Allergic/Immunologic: Reports no additional allergic/immunologic complaints [facility] Past Medical History Medical History Adenomatous colon polyp Anxiety and depression Arthritis Atrial fibrillation Celiac disease Diverticulosis GERD (gastroesophageal reflux disease) Migraine headache Neuropathy Surgical History Surgical History History of delivery History of cholecystectomy History of Gary fundoplication History of tubal ligation Family History Family History Mother Family history of elevated blood lipids Family history of arthritis Sibling Family history of arthritis Grandparent Cerebrovascular accident Family history of cardiovascular disease Hypertension Diabetes mellitus Social History Social History (Reviewed 08/08/21 @ 14:59 by Alverto Coyne
[2021-08-12 22:25] LABS: Lactoferrin, Stool Negative (Negative)
== END 2021-08-08 15:15 | disposition left against medical advice (07) ==
PROVIDERS: Emergency Provider Emergency Medicine; PCP Family Medicine
DX: R11.10 Vomiting, unspecified (principal); R19.7 Diarrhea, unspecified; I48.91 Unspecified atrial fibrillation; F17.210 Nicotine dependence, cigarettes, uncomplicated
CPT/HCPCS: 36415; 80053; 81001; 81025; 83630; 83690; 85025; 87045; 87324; 87427; 89055; 99199; 99283; J1200; J1630; J7120

== ENCOUNTER 2022-06-19 06:33 | Outpatient (RCR) | payer MEDICARE, MEDICAID, SELFPAY | END 2022-09-02 12:40 | disposition home or self-care (01) | LOC: ANHPT 06:33 | PROVIDERS: PCP Family Medicine | DX: N39.3 Stress incontinence (female) (male) (principal) | CPT/HCPCS: 99199 ==

== ENCOUNTER 2023-05-22 17:44 | Emergency (ER) | payer OTHER, MEDICARE, MEDICAID, SELFPAY ==
--- NOTE | ~2023-05-22 | XR_ITS ---
XR foot RT min 3V DATE: 05/22/2023 19:04 INDICATION: Dropped object on dorsal foot. Dorsal foot pain TECHNIQUE: 4 views COMPARISON: None FINDINGS: No fracture or dislocation, periosteal reaction or bone destruction. IMPRESSION: Negative Reviewed, dictated and finalized at location A. IMPRESSION: Negative
[2023-05-22 18:37] VITALS: BP 101/66; PULSE 74; RESP 16; TEMP 36.8; O2SAT 100
--- NOTE | 2023-05-22 19:45 | ED.LOWEXIN ---
HPI - Extremity Injury (Lower) General Chief Complaint: Extremity Injury, Lower Stated Complaint: right foot injury - unable to bear weight Time Seen by Provider: 05/22/23 19:45 Source: patient Mode of arrival: ambulatory Limitations: no limitations History of Present Illness HPI Narrative: Patient is a 53-year-old female who presents to the ED with report of right foot pain. Patient reports she dropped her smoking vape off her bed onto her dorsal R foot around 230 pm today. She c/o pain to her R foot since then, reporting that she is unable to bear weight on her right foot due to the pain. She tried taking Tylenol and icing her foot w/o relief. Denies any other injuries. Denies numbness or tingling. Patient is on eliquis d/t hx of afib. Related Data Home Medications Medication Instructions Recorded Confirmed aluminum-mag hydroxide-simethicone 10 ml PO QID PRN Acid Reflux 05/28/20 06/20/21 400 mg-400 mg-40 mg/5 mL oral susp (Mylanta Maximum Strength) simethicone 125 mg chewable tablet 125 mg PO QID PRN Abdominal 05/28/20 06/20/21 (Gas-X Extra Strength) Discomfort sumatriptan succinate 100 mg tablet 100 mg PO PRN PRN Headache 05/28/20 06/20/21 clonazepam 0.5 mg tablet 0.5 mg PO BID 04/17/21 06/20/21 metoprolol succinate 25 mg 25 mg PO DAILY 04/17/21 06/20/21 tablet,extended release 24 hr bupropion HCl 100 mg tablet,12 hr 100 mg PO BID 04/26/21 06/20/21 sustained-release flecainide 50 mg tablet 50 mg PO Q12H 06/20/21 06/20/21 sulfamethoxazole 800 1 tablet PO Q12H 06/20/21 06/20/21 mg-trimethoprim 160 mg tablet (Bactrim DS) Allergies Allergy/AdvReac Type Severity Reaction Status Date / Time prochlorperazine AdvReac Severe Confusion Verified 05/22/23 17:45 metoclopramide [From Reglan] AdvReac Intermediate anxiety Verified 05/22/23 17:45 azithromycin AdvReac Unknown STOMACH Verified 05/22/23 17:45 UPSET Review of Systems Review of Systems: CONSTITUTIONAL: Denies fever, chills, or sweats. MUSCULOSKELETAL: See HPI. NEUROLOGIC: Denies tingling, numbness, or weakness. All systems reviewed & are unremarkable except as noted in HPI and below PMFSH Past Medical History Medical History Adenomatous colon polyp Anxiety and depression Arthritis Atrial fibrillation Celiac disease Diverticulosis GERD (gastroesophageal reflux disease) Migraine headache Neuropathy Surgical History Surgical History History of delivery History of cholecystectomy History of Gary fundoplication History of tubal ligation Family History Family History Mother Family history of elevated blood lipids Family history of arthritis Sibling Family history of arthritis Grandparent Cerebrovascular accident Family history of cardiovascular disease Hypertension Diabetes mellitus Social History Social History Smoking packs per day: 0.5 Smoking cigarettes per day: 10.0 Years smoked: 10 Smoking pack-years: 5.00 Smoking status: Current every day smoker Tobacco type: e-cigarettes/vaping Alcohol intake: never Substance use: current Substance use type: marijuana Last use: 05/21/20 Gender identity (if verbalized by the patient): Female Sexual Orientation (if Verbalized by the Patient): Straight or Heterosexual Spiritual care concerns: No Exam Narrative: GENERAL: Appears older than stated age, well-nourished, non-toxic, in no acute distress. HEAD: Normocephalic, atraumatic. NECK: Supple. No adenopathy, no masses. RESPIRATORY: Airway patent, respirations nonlabored. Clear to auscultation bilaterally, no rales, rhonchi, wheezing. CARDIOVASCULAR: Regular rate and rhythm without murmurs, rubs, or gallops. Pedal pulses 2+ and equal bilaterally. MUSCUL
[2023-05-22] MEDS: ACETAMINOPHEN 500 MG TABLET 1000 MG PO (20:04)
== END 2023-05-22 20:32 | disposition home or self-care (01) ==
LOC: ANHED 20:14
PROVIDERS: Emergency Provider Physician Assistant; PCP Family Medicine
DX: S90.31XA Contusion of right foot, initial encounter (principal); I48.91 Unspecified atrial fibrillation; K90.0 Celiac disease; K21.9 Gastro-esophageal reflux disease without esophagitis; G62.9 Polyneuropathy, unspecified; F32.A Depression, unspecified; F41.9 Anxiety disorder, unspecified; F17.210 Nicotine dependence, cigarettes, uncomplicated; Z86.010 Personal history of colon polyps; Z90.49 Acquired absence of other specified parts of digestive tract; W20.8XXA Other cause of strike by thrown, projected or falling object, initial encounter
CPT/HCPCS: 73630; 99283; A9270

== ENCOUNTER 2023-05-23 19:35 | Emergency (ER) | payer OTHER, MEDICARE, MEDICAID, SELFPAY ==
[2023-05-23] VITALS (8 sets, daily range): BP systolic 100–112; BP diastolic 60–75; PULSE 51–78; RESP 8–18; TEMP 36.9; O2SAT 90–100
[2023-05-23 22:20] LABS: Basophils Absolute Auto 0.1 K/mm3 (0.0-0.1); Basophils Percent Auto 0.3 % (0.2-1.2); Eosinophils Percent Auto 0.1 % (0-4.4); Hematocrit 33.9 % (37.0-47.0); Hemoglobin 10.7 g/dL (12.0-15.0); Immature Granulocyte Absolute 0.07 K/mm3 (0.00-0.031); Immature Granulocyte Percent A 0.4 % (0-0.5); Lymphocytes Absolute Auto 0.56 K/mm3 (0.9-3.2); Lymphocytes Percent Auto 3.3 % (18.3-44.2); Mean Corpuscular HGB Conc 31.6 g/dl (32-36); Mean Corpuscular Hemoglobin 25.7 pg (26-34); Mean Corpuscular Volume 81.3 fl (80-100); Mean Platelet Volume 10.3 fl (7.4-10.4); Monocytes Absolute Auto 1.1 K/mm3 (0.1-0.6); Monocytes Percent Auto 6.2 % (2.6-8.5); Neutrophils Absolute Auto 15.5 K/mm3 (1.3-6.7); Neutrophils Percent Auto 89.7 % (45.5-73.1); Platelet Count Result 376 k/mm3 (150-375); Red Blood Count 4.17 M/mm3 (4.2-5.4); Red Cell Distribution Width 15.7 % (11.5-14.5); White Blood Count 17.2 K/mm3 (4.5-10.0)
[2023-05-23 22:29] LABS: Ovalocytes 1+ (NORMAL); Schistocytes None Seen (NORMAL)
[2023-05-23 22:34] LABS: Alanine Aminotransferase 18 U/L (6-35); Albumin Level 4.9 g/dL (3.5-5.1); Alkaline Phosphatase 106 U/L (38-126); Anion Gap 7 mmol/L (8-16); Aspartate Amino Transferase 35 U/L (14-36); Bilirubin,Total 0.8 mg/dL (0.2-1.3); Blood Urea Nitrogen 12 mg/dL (7-17); Calcium 9.3 mg/dL (8.4-10.2); Carbon Dioxide 27 mmol/L (22-30); Chloride 104 mmol/L (98-107); Estimated Glomerular Filt Rate > 60; Glucose 112 mg/dL (65-110); Lipase 113 U/L (23-300); Potassium 3.8 mmol/L (3.4-5.0); Sodium 138 mmol/L (137-145)
--- NOTE | 2023-05-23 22:40 | ED.NAVMDI ---
HPI - Nausea/Vomiting/Diarrhea General Chief complaint: Nausea/Vomiting/Diarrhea Stated complaint: nausea, vomiting Time Seen by Provider: 05/23/23 22:10 History of Present Illness HPI Narrative: Patient is a 53-year-old female with a history of A-fib on Eliquis, IBS presenting with nausea and vomiting. Patient states that she has not really been able to keep anything down for the last few days. States that she has had episodes like this in the past and it has been related to her IBS. States that she has been taking her Zofran with no relief. She complains of diffuse abdominal cramping. States that she continues to have small loose bowel movements. No fevers, chest pain, shortness of breath, cough. She does report dysuria. Related Data Home Medications Medication Instructions Recorded Confirmed aluminum-mag hydroxide-simethicone 10 ml PO QID PRN Acid Reflux 05/28/20 06/20/21 400 mg-400 mg-40 mg/5 mL oral susp (Mylanta Maximum Strength) simethicone 125 mg chewable tablet 125 mg PO QID PRN Abdominal 05/28/20 06/20/21 (Gas-X Extra Strength) Discomfort sumatriptan succinate 100 mg tablet 100 mg PO PRN PRN Headache 05/28/20 06/20/21 clonazepam 0.5 mg tablet 0.5 mg PO BID 04/17/21 06/20/21 metoprolol succinate 25 mg 25 mg PO DAILY 04/17/21 06/20/21 tablet,extended release 24 hr bupropion HCl 100 mg tablet,12 hr 100 mg PO BID 04/26/21 06/20/21 sustained-release flecainide 50 mg tablet 50 mg PO Q12H 06/20/21 06/20/21 sulfamethoxazole 800 1 tablet PO Q12H 06/20/21 06/20/21 mg-trimethoprim 160 mg tablet (Bactrim DS) Allergies Allergy/AdvReac Type Severity Reaction Status Date / Time prochlorperazine AdvReac Severe Confusion Verified 05/23/23 19:36 metoclopramide [From Reglan] AdvReac Intermediate anxiety Verified 05/23/23 19:36 azithromycin AdvReac Unknown STOMACH Verified 05/23/23 19:36 UPSET Review of Systems Review of Systems: All systems reviewed & are unremarkable except as noted in HPI and below PMFSH Past Medical History Medical History Adenomatous colon polyp Anxiety and depression Arthritis Atrial fibrillation Celiac disease Diverticulosis GERD (gastroesophageal reflux disease) Migraine headache Neuropathy Surgical History Surgical History History of delivery History of cholecystectomy History of Gary fundoplication History of tubal ligation Family History Family History Mother Family history of elevated blood lipids Family history of arthritis Sibling Family history of arthritis Grandparent Cerebrovascular accident Family history of cardiovascular disease Hypertension Diabetes mellitus Social History Social History Smoking packs per day: 0.5 Smoking cigarettes per day: 10.0 Years smoked: 10 Smoking pack-years: 5.00 Smoking status: Current every day smoker Tobacco type: e-cigarettes/vaping Alcohol intake: never Substance use: current Substance use type: marijuana Last use: 05/21/20 Gender identity (if verbalized by the patient): Female Sexual Orientation (if Verbalized by the Patient): Straight or Heterosexual Spiritual care concerns: No Exam Narrative: GENERAL: Nontoxic, no acute distress, pleasant and cooperative HEAD: Normocephalic, atraumatic. EYES: PERRLA and EOMI. ENT: Grossly unremarkable NECK: Supple. CHEST: Clear to auscultation. No respiratory distress. HEART: Regular rate and rhythm ABDOMEN: Soft, mild diffuse tenderness, no focal tenderness, no guarding or rebound EXTREMITIES: Normal range of motion. No edema. SKIN: Warm, dry, no rash. NEURO: No focal deficits. Alert and oriented x3. PSYCH: Normal mood and affect. Course Vital Signs Vital signs: Vital Signs Temperat
[2023-05-23] MEDS: ONDANSETRON INJ 4 MG/2 ML VIAL IV PUSH (22:53)
[2023-05-23] MEDS: MORPHINE SULFATE (*CRX) 4 MG/ML INJ IV PUSH (22:53)
[2023-05-23] MEDS: SODIUM CHLORIDE 0.9% IV 1,000 ML 999 ML IV CONT (22:53)
[2023-05-23] MEDS: KETOROLAC 30 MG/ML VIAL (*BKC) IV PUSH (23:54)
[2023-05-24] VITALS (28 sets, daily range): BP systolic 103–126; BP diastolic 59–76; PULSE 58–77; RESP 8–34; O2SAT 98–100
[2023-05-24 00:53] LABS: Appearance Urine Clear (Clear); Bacteria Urine None Seen /hpf; Bilirubin Urine Negative (Negative); Blood Urine Negative (Negative); Color Urine Yellow (Yellow); Glucose Urine UA Negative (Negative); Ketones Urine 2+ mg/dL (Negative); Leukocyte Esterase Ur Negative LEU/UL (Negative); Nitrate Urine Negative (Negative); Non Pathogenic Casts 0-2; Protein Urine Trace mg/dL (Negative); RBC Urine 0-2 /hpf (0-2); Specific Grav Ur 1.017 (1.001-1.035); Squamous Epithelial Cell Urine None seen /hpf (Few); Urobilinogen Urine 0.2 mg/dL (<2.0); WBC Urine 0-5 /hpf; pH Urine >=9.0 (5.0-9.0)
[2023-05-24 00:54] LABS: Add Urine Microscopic? YES
[2023-05-24 01:21] LABS: Influenza A QL RT-PCR Negative (Negative); Influenza B QL RT-PCR Negative (Negative); SARS-CoV-2 RNA PCR Negative (Negative)
[2023-05-24] MEDS: ONDANSETRON INJ 4 MG/2 ML VIAL IV PUSH (02:42)
== END 2023-05-24 04:58 | disposition home or self-care (01) ==
PROVIDERS: Emergency Provider Emergency Medicine; PCP Family Medicine
DX: R11.2 Nausea with vomiting, unspecified (principal); I48.91 Unspecified atrial fibrillation; K90.0 Celiac disease; K58.9 Irritable bowel syndrome, unspecified; K21.9 Gastro-esophageal reflux disease without esophagitis; G62.9 Polyneuropathy, unspecified; F17.290 Nicotine dependence, other tobacco product, uncomplicated; F41.9 Anxiety disorder, unspecified; F32.A Depression, unspecified; Z90.49 Acquired absence of other specified parts of digestive tract; Z20.822 Contact with and (suspected) exposure to COVID-19; Z79.01 Long term (current) use of anticoagulants
CPT/HCPCS: 36415; 80053; 81001; 83690; 85025; 87636; 96361; 96374; 96375; 96376; 99284; J1885; J2270; J2405; J7030

== ENCOUNTER 2023-06-11 15:22 | Emergency (ER) | payer OTHER, MEDICARE, MEDICAID, SELFPAY ==
--- NOTE | ~2023-06-11 | CT_ITS ---
EXAMINATION: CT abdomen pelvis w con DATE: 06/11/2023 18:07 INDICATION: Abdomen pain TECHNIQUE: Computed tomography (CT) of the abdomen and pelvis was performed with 100 cc Omnipaque 350 intravenous contrast. The dose-length product was 377.02 mGy-cm. Automated exposure control and iter ative reconstruction technique were employed. COMPARISON: CT dated 04/25/2021 FINDINGS: Heart size is normal. No significant pleural or pericardial effusion. No significant vascul ar abnormality. No left adenopathy. Small fat-containing umbilical hernia. Nonobstructive bowel gas p attern. The liver, spleen, pancreas, adrenal glands are unremarkable. There are low-density lesions in both k idneys, most likely benign. No free air or free fluid. Coarse benign-appearing calcification right he patic lobe. No acute osseous abnormality. IMPRESSION: 1. No acute abdominal abnormality. Reviewed, dictated and finalized at location A.
[2023-06-11 15:45] VITALS: BP 124/78; PULSE 77; RESP 16; TEMP 36.7; O2SAT 100
[2023-06-11 16:16] LABS: Basophils Percent Auto 0.7 % (0.2-1.2); Eosinophils Absolute Auto 0.1 K/mm3 (0-0.3); Hematocrit 35.8 % (37.0-47.0); Hemoglobin 10.8 g/dL (12.0-15.0); Immature Granulocyte Absolute 0.01 K/mm3 (0.00-0.031); Immature Granulocyte Percent A 0.2 % (0-0.5); Lymphocytes Absolute Auto 1.85 K/mm3 (0.9-3.2); Lymphocytes Percent Auto 30.1 % (18.3-44.2); Mean Corpuscular HGB Conc 30.2 g/dl (32-36); Mean Corpuscular Hemoglobin 25.2 pg (26-34); Mean Corpuscular Volume 83.6 fl (80-100); Mean Platelet Volume 10.3 fl (7.4-10.4); Monocytes Absolute Auto 0.7 K/mm3 (0.1-0.6); Monocytes Percent Auto 10.6 % (2.6-8.5); Neutrophils Absolute Auto 3.5 K/mm3 (1.3-6.7); Neutrophils Percent Auto 57.4 % (45.5-73.1); Platelet Count Result 409 k/mm3 (150-375); Red Blood Count 4.28 M/mm3 (4.2-5.4); Red Cell Distribution Width 15.6 % (11.5-14.5); White Blood Count 6.2 K/mm3 (4.5-10.0)
[2023-06-11 16:20] LABS: Alanine Aminotransferase 21 U/L (6-35); Albumin Level 4.8 g/dL (3.5-5.1); Alkaline Phosphatase 101 U/L (38-126); Anion Gap 10 mmol/L (8-16); Aspartate Amino Transferase 33 U/L (14-36); Bilirubin,Total 0.5 mg/dL (0.2-1.3); Blood Urea Nitrogen 8 mg/dL (7-17); Calcium 9.5 mg/dL (8.4-10.2); Carbon Dioxide 25 mmol/L (22-30); Chloride 106 mmol/L (98-107); Estimated CRCL calculation 68 ml/min; Estimated Glomerular Filt Rate > 60; Glucose 101 mg/dL (65-110); Lipase 150 U/L (23-300); Potassium 3.6 mmol/L (3.4-5.0); Sodium 141 mmol/L (137-145)
[2023-06-11 16:21] LABS: Appearance Urine Clear (Clear); Bilirubin Urine Negative (Negative); Blood Urine Negative (Negative); Color Urine Yellow (Yellow); Glucose Urine UA Negative (Negative); Ketones Urine Negative (Negative); Leukocyte Esterase Ur Negative LEU/UL (Negative); Nitrate Urine Negative (Negative); Protein Urine Negative (Negative); Specific Grav Ur 1.003 (1.001-1.035); Urobilinogen Urine 0.2 mg/dL (<2.0); pH Urine 7.5 (5.0-9.0)
[2023-06-11 16:43] LABS: Add Urine Microscopic? NO
[2023-06-11] MEDS: ONDANSETRON INJ 4 MG/2 ML VIAL IV PUSH ×2 (17:39→21:30)
[2023-06-11] MEDS: SODIUM CHLORIDE 0.9% IV 1,000 ML 999 ML IV CONT (17:39)
[2023-06-11 17:42] VITALS: BP 122/71; O2SAT 100
[2023-06-11 17:45] VITALS: BP 124/71
--- NOTE | 2023-06-11 17:48 | ECG_ITS ---
Measurements Intervals [place] Rate: 86 P: 60 [place]: 163 QRS: 41 QRSD: 94 T: 53 QT: 408 QTc: 489 Interpretive Statements SINUS RHYTHM ST SEGMENT ABNORMALITY CONSIDER INFEROLATERAL ISCHEMIA ABNORMAL ECG COMPARED TO ECG 05/28/2021 23:43:22 ST (T WAVE) DEVIATION NOW PRESENT Electronically Signed On 06-12-2023 7:26:08 CDT by Say Lu M.D.
--- NOTE | 2023-06-11 17:52 | ED.ABDPAIN ---
HPI - Abdominal Pain General Chief Complaint: Abdominal Pain Stated Complaint: abd pain/dark diarrhea Time Seen by Provider: 06/11/23 17:03 Source: patient Mode of arrival: ambulatory Limitations: no limitations History of Present Illness HPI narrative: 53-year-old female presents today with complaints of 3 weeks of epigastric pain. Patient seeing GI doctor at [facility] and has been working with her over the last 3 weeks. States she saw her recently noted an increase in white count and started her on some antibiotics due to thinking her bacteria in her colon was not right . Patient had seen her after that with a repeat in labs. White count was better, Hemoccult negative. Patient is using Zofran, pantoprazole, Pepcid at home without relief. Pain is in the epigastric region she is also noting diarrhea. She denies using any recent Pepto-Bismol or Maalox. No vomiting. Related Data Home Medications Medication Instructions Recorded Confirmed aluminum-mag hydroxide-simethicone 10 ml PO QID PRN Acid Reflux 05/28/20 06/20/21 400 mg-400 mg-40 mg/5 mL oral susp (Mylanta Maximum Strength) simethicone 125 mg chewable tablet 125 mg PO QID PRN Abdominal 05/28/20 06/20/21 (Gas-X Extra Strength) Discomfort sumatriptan succinate 100 mg tablet 100 mg PO PRN PRN Headache 05/28/20 06/20/21 clonazepam 0.5 mg tablet 0.5 mg PO BID 04/17/21 06/20/21 metoprolol succinate 25 mg 25 mg PO DAILY 04/17/21 06/20/21 tablet,extended release 24 hr bupropion HCl 100 mg tablet,12 hr 100 mg PO BID 04/26/21 06/20/21 sustained-release flecainide 50 mg tablet 50 mg PO Q12H 06/20/21 06/20/21 sulfamethoxazole 800 1 tablet PO Q12H 06/20/21 06/20/21 mg-trimethoprim 160 mg tablet (Bactrim DS) Allergies Allergy/AdvReac Type Severity Reaction Status Date / Time prochlorperazine AdvReac Severe Confusion Verified 05/23/23 19:36 metoclopramide [From Reglan] AdvReac Intermediate anxiety Verified 05/23/23 19:36 azithromycin AdvReac Unknown STOMACH Verified 05/23/23 19:36 UPSET Review of Systems Review of Systems: All systems reviewed & are unremarkable except as noted in HPI and below PMFSH Past Medical History Medical History Adenomatous colon polyp Anxiety and depression Arthritis Atrial fibrillation Celiac disease Diverticulosis GERD (gastroesophageal reflux disease) Migraine headache Neuropathy Surgical History Surgical History History of delivery History of cholecystectomy History of Gayr fundoplication History of tubal ligation Family History Family History Mother Family history of elevated blood lipids Family history of arthritis Sibling Family history of arthritis Grandparent Cerebrovascular accident Family history of cardiovascular disease Hypertension Diabetes mellitus Social History Social History Smoking packs per day: 0.5 Smoking cigarettes per day: 10.0 Years smoked: 10 Smoking pack-years: 5.00 Smoking status: Current every day smoker Tobacco type: e-cigarettes/vaping Alcohol intake: never Substance use: current Substance use type: marijuana Last use: 05/21/20 Gender identity (if verbalized by the patient): Female Sexual Orientation (if Verbalized by the Patient): Straight or Heterosexual Spiritual care concerns: No Exam Const: General: cooperative, healthy appearing, comfortable, no acute distress and well developed Orientation/consciousness: patient oriented x3 HENMT: Head: normal to inspection Eyes: General: appearance normal, both eyes and all related structures Resp: Effort & Inspection: normal respiratory effort and able to speak in complete sentences Auscultation: clear to auscultation bilaterally Cardio: Rate: regular rate Rhythm: regu
[2023-06-11 18:17] LABS: Troponin I < 0.012 ng/mL (0.000-0.034)
[2023-06-11] MEDS: BELLADONNA ALK/PHENOB ELIX 10 ML, MAG HYDROX/ALUMINUM HYD/SIMETH 30 ML, LIDOCAINE HCL 2... PO (19:10)
[2023-06-11 21:33] VITALS: BP 128/64; PULSE 74; RESP 16; O2SAT 100
== END 2023-06-11 21:34 | disposition home or self-care (01) ==
PROVIDERS: Emergency Medicine; Emergency Provider Nurse Practitioner Family; PCP Family Medicine
DX: R10.13 Epigastric pain (principal); R11.2 Nausea with vomiting, unspecified; I48.91 Unspecified atrial fibrillation; K90.0 Celiac disease; K21.9 Gastro-esophageal reflux disease without esophagitis; G62.9 Polyneuropathy, unspecified; M19.90 Unspecified osteoarthritis, unspecified site; F32.A Depression, unspecified; F41.9 Anxiety disorder, unspecified; F17.290 Nicotine dependence, other tobacco product, uncomplicated; Z86.010 Personal history of colon polyps; Z90.49 Acquired absence of other specified parts of digestive tract; Z79.01 Long term (current) use of anticoagulants
CPT/HCPCS: 36415; 74177; 80053; 81003; 83690; 84484; 85025; 93005; 96361; 96374; 96376; 99284; A9270; J2405; J7030; Q9967

== ENCOUNTER 2023-07-04 19:49 | Emergency (ER) | payer OTHER, MEDICAID, SELFPAY ==
[2023-07-04 19:50] VITALS: BP 122/66; PULSE 70; RESP 15; TEMP 36.6; O2SAT 100
--- NOTE | 2023-07-04 19:59 | ECG_ITS ---
Measurements Intervals [place] Rate: 58 P: 60 [place]: 175 QRS: 26 QRSD: 91 T: 30 QT: 451 QTc: 444 Interpretive Statements SINUS BRADYCARDIA INCOMPLETE RIGHT BUNDLE BRANCH BLOCK LOW QRS VOLTAGE IN PRECORDIAL LEADS BORDERLINE ECG NO PREVIOUS ECG AVAILABLE FOR COMPARISON Electronically Signed On 07-05-2023 6:46:06 CASING WRINGER OPERATOR by Cabrera Moya D.O.
[2023-07-04 20:02] LABS: Glucose Point of Care 136 mg/dl (65-105)
--- NOTE | 2023-07-04 21:11 | ED.GENADULT ---
HPI - General Adult General Chief complaint: Dizziness Stated complaint: near syncope Time Seen by Provider: 07/04/23 20:51 History of Present Illness HPI narrative: Patient is a 53-year-old female who presents to the emergency department this afternoon complaining of a near syncopal episode. Patient states that she was at home and all of a sudden felt as though she was going to pass out. Patient then called EMS and was brought to our facility for further evaluation. EMS obtained a glucose check and was noted to be 67 and patient was administered oral dextrose with improvement of her glucose at 297. Patient admits that she felt significantly better after the oral glucose. Patient admits that she has a history of IBS and has not been eating secondary to this. She denies any syncopal episode, denies falling or hitting her head. Patient does have a history of atrial fibrillation and is on blood thinners due to this. She denies any additional symptoms at this time including chest pain, shortness of breath, nausea, vomiting, abdominal pain, dysuria, hematuria, constipation, diarrhea, melena, hematochezia, fevers or chills. He also denies any headaches, dizziness, lightheadedness, blurry visions, focal weakness, numbness and or tingling. There are no other modifying, alleviating, or precipitating factors at this time. Review of Systems Review of Systems: All systems are reviewed and are negative unless stated otherwise in the HPI. Exam Narrative: General: Alert, awake, afebrile, in no acute distress. HEENT: PERRL, no rhinorrhea, no post nasal drip, oropharynx clear. Neck: Trachea midline, no JVD, no lymphadenopathy. Cardiovascular: Regular rate and rhythm, no murmurs, rubs or gallops, no peripheral edema. Respiratory: Clear to auscultation bilaterally, no tachypnea, no wheezing, no rhonchi, no rubs, no respiratory distress. Abdomen: Soft, nontender, nondistended, no rebound, no guarding, no peritoneal signs. Musculoskeletal: No joint swelling or deformity, normal muscle tone. Skin: No rashes or petechia, no signs of infection. Psychiatric: Alert and oriented, normal behavior and judgment for situation. Neurological: Alert and oriented to person, place, and time. Follows all commands. 5 out of 5 motor strength of the bilateral upper and lower extremity, sensation intact in the bilateral upper and lower extremity, cranial nerves II through XII grossly intact, no focal deficits, speech is clear and fluent. Course Vital Signs Vital signs: Vital Signs Temperature 97.9 F 07/04/23 19:50 Pulse Rate 70 07/04/23 19:50 Respiratory Rate 15 07/04/23 19:50 Blood Pressure 122/66 07/04/23 19:50 Pulse Oximetry 100 07/04/23 19:50 Oxygen Delivery Room Air 07/04/23 19:50 Temperature 97.9 F 07/04/23 19:50 Pulse Rate 71 07/04/23 21:31 Respiratory Rate 15 07/04/23 19:50 Blood Pressure 104/63 07/04/23 21:31 Pulse Oximetry 99 07/04/23 21:31 Oxygen Delivery Room Air 07/04/23 19:50 Medical Decision Making MDM Narrative Medical decision making narrative: The patient was evaluated by myself in the emergency department. History is obtained from patient who is an independent historian and physical exam was performed. External medical records were reviewed at this time. Patient was monitored in our emergency department for 2 hours with no recurrent hypoglycemic episodes. Patient denies any history of diabetes and is currently not on any patient hyperglycemic medications. EKG was obtained which revealed sinus bradycardia at a rate of [address] changes, T wave inversions or evidence of acute ischemia. EKG was independently interpreted by me and is currently pending official cardiology read. Differential diagnosis considerations include hypoglycemia and vasovagal episode. Comorbidities impacting this visit include history of IBS and limited oral intake secondary to this and causing her hypoglycemia. I hav
[2023-07-04 21:15] VITALS: BP 97/64; PULSE 61; O2SAT 100
[2023-07-04 21:29] VITALS: O2SAT 100
[2023-07-04 21:30] VITALS: O2SAT 100
[2023-07-04 21:31] VITALS: BP 104/63; PULSE 71; O2SAT 99
== END 2023-07-04 22:03 | disposition home or self-care (01) ==
PROVIDERS: Emergency Provider Emergency Medicine; PCP Family Medicine
DX: E16.2 Hypoglycemia, unspecified (principal); I45.10 Unspecified right bundle-branch block; R00.1 Bradycardia, unspecified
CPT/HCPCS: 82948; 93005; 99283

== ENCOUNTER 2023-07-17 18:04 | Emergency (ER) | payer OTHER, MEDICARE, MEDICAID, SELFPAY ==
[2023-07-17] VITALS (8 sets, daily range): BP systolic 104–112; BP diastolic 64–68; PULSE 62–81; RESP 12–30; TEMP 36.6; O2SAT 99–100
--- NOTE | ~2023-07-17 | XR_ITS ---
EXAMINATION: XR chest 1V portable DATE: 07/17/2023 23:18 INDICATION: Left-sided chest pain TECHNIQUE: frontal view of the chest was obtained. COMPARISON: Chest radiograph dated 05/27/2020 FINDINGS: The lungs remain clear with no focal airspace opacities, pulmonary edema, pleural effusion or pneumot horax. The cardiomediastinal silhouette is normal. Visualized bones and soft tissues are unremarkable . IMPRESSION: 1. No acute cardiopulmonary disease. Reviewed, dictated and finalized at location A. OM CAGER
--- NOTE | ~2023-07-17 | CT_ITS ---
EXAMINATION: CT abdomen pelvis w con DATE: 07/18/2023 00:01 INDICATION: Periumbilical abdominal pain TECHNIQUE: Computed tomography (CT) of the abdomen and pelvis was performed with 100 mL Omnipaque-350 intravenous contrast. Automated exposure control and iterative reconstruction technique were employe d. The dose-length product was 306.43 mGy-cm. COMPARISON: 06/11/2023 FINDINGS: Lung bases are clear. Heart size is normal. No pericardial or pleural effusion. Change of prior Nisse n fundoplication. Small region of focal hepatic steatosis at the ligamentum teres. Calcific a cyst at the dome of the liver consistent with old granulomatous disease. Cholecystectomy clips at the gallbl adder fossa. Spleen, pancreas, bilateral adrenal glands are normal. Bilateral renal cysts, the larges t measuring 1 cm the upper pole of the left kidney where there is also some cortical scarring likely sequela prior infection or infarction. Bladder, anteverted uterus and bilateral adnexa are unremarkab le. Bowels including the appendix are normal. No free intraperitoneal gas or fluid. No pathologically enlarged abdominal or pelvic lymphadenopathy. Tiny fat-containing umbilical hernia. Mild thoracolumb ar dextroscoliosis with mild to moderate spondylosis. IMPRESSION: 1. No acute intra-abdominal/pelvic process. Reviewed, dictated and finalized at location A. RESS PACKER
--- NOTE | 2023-07-17 20:49 | ECG_ITS ---
Measurements Intervals [place] Rate: 63 P: 49 [place]: 163 QRS: 15 QRSD: 93 T: 40 QT: 425 QTc: 435 Interpretive Statements SINUS RHYTHM EARLY PRECORDIAL R/S TRANSITION LOW QRS VOLTAGE IN PRECORDIAL LEADS BORDERLINE ECG COMPARED TO ECG 07/04/2023 20:04:37 SINUS RHYTHM NOW PRESENT Electronically Signed On 07-17-2023 21:43:44 DRILLER HELPER by Cabrera Moya D.O.
--- NOTE | 2023-07-17 22:57 | ED.GENADULT ---
HPI - General Adult General Chief complaint: Dizziness Stated complaint: dizziness Time Seen by Provider: 07/17/23 21:02 Source: patient Limitations: no limitations History of Present Illness HPI narrative: Patient is a 53-year-old female presents to the emergency department complaining of multiple complaints. Patient states she has been having abdominal pain past couple weeks that feels slightly worse tonight, comes and goes, in the middle of her abdomen, sharp, radiates to her bilateral sides are abdomen, has not noticed anything making the pain come on or go away, she has tried Mylanta and Bentyl without any relief. Patient admits to history of this pain similar in the past there history of IBS. Patient admits to urinary frequency and urinary urgency. Patient denies history of kidney stones. Patient is to history of atrial fibrillation and has been taking Eliquis and metoprolol addition of flecainide and taking all these as prescribed without any recent changes. Patient denies history of blood clots or unilateral lower extremity swelling. Patient is to chronic nausea without vomiting the patient's last bowel movement was 4 days ago. Patient denies melena or hematochezia. Patient also states that she developed some chest pain gradually around approximately 5:00 p.m. on the left side of her chest and recent left side of her ribcage crackles and goes it feels like pounding sensation with some mild associated shortness of breath. Patient denies any chest pain and noticed the patient has not tried anything for the chest pain. Patient denies history of coronary artery disease and admits to seeing a adoption services manager Dr. Michael out of [facility]. Patient denies numbness, weakness, headache, vision changes, sore throat, nasal congestion, hematuria, dysuria, rash, recent injuries, recent illness, fever Related Data Allergies Allergy/AdvReac Type Severity Reaction Status Date / Time azithromycin Allergy Gastrointestinal Verified 07/17/23 18:30 Upset metoclopramide [From Reglan] Allergy Shakiness Verified 07/17/23 18:30 prochlorperazine Allergy Shakiness Verified 07/17/23 18:29 [From Compazine] Review of Systems Review of Systems: A 10 system review of systems was completed on the patient and is negative except for what is stated in the HPI. Nursing and ancillary documentation was reviewed. [facility] Comments At time of signature, I have reviewed and agree with nursing past medical, surgical, social and family history unless otherwise noted. Please see the nursing chart for further information. There is no relevant family history pertinent to the presenting complaint. Exam Narrative: CONST: No acute distress. Well nourished. HENMT: Head is normocephalic and atraumatic. Dry mucous membranes. No posterior oropharynx erythema. EYES: No conjunctival icterus, injection, or pallor. PERRL. NECK: No meningeal signs. no JVD. No cervical lymphadenopathy. RESP: Able to speak in full sentences. Normal respiratory effort. CTAB. CARDIO: Regular rate. Regular rhythm. 2+ DP and radial pulses bilaterally. GI: Nondistended. Soft. Mild tenderness to palpation in the periumbilical region. no rebound or guarding or rigidity. Negative Bravo sign. No McBurney's point tenderness palpation. No palpable masses or hernias. : No CVA tenderness to palpation. SKIN: No rashes or lesions noted on exposed skin. NEURO: Oriented x3. Moves all extremities. EXTREM/MSK/BACK: No pedal edema. PSYCH: Normal affect. Course Vital Signs Vital signs: Vital Signs Temperature 98 F 07/17/23 18:20 Pulse Rate 79 07/17/23 18:20 Respiratory Rate 20 07/17/23 18:20 Blood Pressure 112/64 07/17/23 18:20 Pulse Oximetry 100 07/17/23 18:20 Oxygen Delivery Room Air 07/17/23 18:20 Temperature 98 F 07/17/23 18:20 Pulse Rate 61 07/18/23 03:01 Respiratory Rate 12 07/18/23 03:01 Blood Pressure 109/70
[2023-07-17] MEDS: ASPIRIN 325 MG TABLET PO (23:07)
[2023-07-17] MEDS: ONDANSETRON INJ 4 MG/2 ML VIAL IV PUSH (23:07)
[2023-07-17] MEDS: MORPHINE SULFATE (*CRX) 4 MG/ML INJ IV PUSH (23:08)
[2023-07-17] MEDS: SODIUM CHLORIDE 0.9% IV 1,000 ML 999 ML IV CONT (23:08)
--- NOTE | 2023-07-17 23:15 | PC.NURSE ---
Assumed care of pt. Report from KIET Jaramillo. Pt up to restroom for urine sample.
[2023-07-17 23:16] LABS: Basophils Absolute Auto 0.1 K/mm3 (0.0-0.1); Basophils Percent Auto 0.7 % (0.2-1.2); Eosinophils Absolute Auto 0.1 K/mm3 (0-0.3); Eosinophils Percent Auto 0.8 % (0-4.4); Hematocrit 32.3 % (37.0-47.0); Hemoglobin 9.8 g/dL (12.0-15.0); Immature Granulocyte Absolute 0.02 K/mm3 (0.00-0.031); Immature Granulocyte Percent A 0.3 % (0-0.5); Lymphocytes Absolute Auto 1.98 K/mm3 (0.9-3.2); Mean Corpuscular HGB Conc 30.3 g/dl (32-36); Mean Corpuscular Hemoglobin 25.1 pg (26-34); Mean Corpuscular Volume 82.8 fl (80-100); Monocytes Absolute Auto 0.8 K/mm3 (0.1-0.6); Monocytes Percent Auto 10.6 % (2.6-8.5); Neutrophils Absolute Auto 4.2 K/mm3 (1.3-6.7); Neutrophils Percent Auto 59.6 % (45.5-73.1); Platelet Count Result 345 k/mm3 (150-375); Red Cell Distribution Width 16.2 % (11.5-14.5); White Blood Count 7.1 K/mm3 (4.5-10.0)
[2023-07-17 23:27] LABS: INR 1.2; Prothrombin Time 15.7 Seconds (11.1-14.7)
[2023-07-17 23:44] LABS: Alanine Aminotransferase 17 U/L (6-35); Albumin Level 4.5 g/dL (3.5-5.1); Alkaline Phosphatase 91 U/L (38-126); Anion Gap 9 mmol/L (8-16); Aspartate Amino Transferase 30 U/L (14-36); Bilirubin,Total 0.5 mg/dL (0.2-1.3); Blood Urea Nitrogen 8 mg/dL (7-17); Calcium 9.3 mg/dL (8.4-10.2); Carbon Dioxide 26 mmol/L (22-30); Chloride 107 mmol/L (98-107); Estimated CRCL calculation 60 ml/min; Estimated Glomerular Filt Rate > 60; Glucose 107 mg/dL (65-110); Lipase 193 U/L (23-300); Magnesium 2.2 mg/dL (1.6-2.3); Potassium 3.6 mmol/L (3.4-5.0); Sodium 142 mmol/L (137-145)
[2023-07-17 23:45] LABS: Appearance Urine Clear (Clear); Bacteria Urine None Seen /hpf; Bilirubin Urine Negative (Negative); Blood Urine Negative (Negative); Color Urine Yellow (Yellow); Glucose Urine UA Negative (Negative); Ketones Urine Negative (Negative); Leukocyte Esterase Ur Trace LEU/UL (Negative); Nitrate Urine Negative (Negative); Non Pathogenic Casts 0-2; Protein Urine Negative (Negative); RBC Urine 0-2 /hpf (0-2); Specific Grav Ur 1.008 (1.001-1.035); Squamous Epithelial Cell Urine None seen /hpf (Few); Urobilinogen Urine 0.2 mg/dL (<2.0); WBC Urine 0-5 /hpf; pH Urine 8.5 (5.0-9.0)
[2023-07-17 23:45] LABS: Lactic Acid Reflex 1.1 mmol/L (0.7-2.0)
[2023-07-17 23:52] LABS: Influenza A QL RT-PCR Negative (Negative); Influenza B QL RT-PCR Negative (Negative); SARS-CoV-2 RNA PCR Negative (Negative)
[2023-07-17 23:56] LABS: Troponin I < 0.012 ng/mL (0.000-0.034)
[2023-07-18] VITALS (25 sets, daily range): BP systolic 98–142; BP diastolic 48–81; PULSE 50–91; RESP 9–27; O2SAT 92–100
[2023-07-18] LABS: D Dimer < 0.27 ug/mL (<0.48)
[2023-07-18 00:01] LABS: Add Urine Microscopic? YES
--- NOTE | 2023-07-18 00:43 | ECG_ITS ---
Measurements Intervals [place] Rate: 80 P: 41 [place]: 168 QRS: 45 QRSD: 82 T: 42 QT: 403 QTc: 468 Interpretive Statements SINUS RHYTHM EARLY PRECORDIAL R/S TRANSITION BORDERLINE ST-T WAVE ABNORMALITY- DIFFUSE LEADS BASELINE ARTIFACT- I, II, III, AVR, AVL, AVF, V1-V6 BORDERLINE ECG ST-T WAVE ABNORMALITY NOW PRESENT Electronically Signed On 07-18-2023 7:40:58 ELECTRONIC WIRER by Cabrera Moya D.O.
--- NOTE | 2023-07-18 00:43 | PC.NURSE ---
Pt started having new onset cp that now has moved to epigastric pain. Dr Montiel notified and gave VO for repeat EKG.
--- NOTE | 2023-07-18 00:53 | PC.NURSE ---
VO for famotidine to treat pt's epigastric pain from Dr Montiel.
[2023-07-18] MEDS: FAMOTIDINE 20 MG/2 ML VIAL IV PUSH (01:02)
--- NOTE | 2023-07-18 01:05 | PC.NURSE ---
Pt reports to this rn as famotidine being administered: I've had indigestion pain. This isn't indigestion pain. All VS remain stable. EKG completed and shown to Dr Montiel just after taken.
--- NOTE | 2023-07-18 01:58 | PC.NURSE ---
Pt appears to be sleeping a this time. Resp even and nonlabored.
[2023-07-18 02:03] LABS: Troponin I < 0.012 ng/mL (0.000-0.034)
== END 2023-07-18 03:23 | disposition home or self-care (01) ==
PROVIDERS: Emergency Provider Student in an Organized Health Care Education/Training Program; PCP Family Medicine
DX: R10.33 Periumbilical pain (principal); R07.9 Chest pain, unspecified; Z20.822 Contact with and (suspected) exposure to COVID-19
CPT/HCPCS: 36415; 71045; 74177; 80053; 81001; 83605; 83690; 83735; 84484; 85025; 85380; 85610; 85730; 87636; 93005; 96361; 96374; 96375; 99284; A9270; J2270; J2405; J7030; Q9967

== ENCOUNTER 2023-10-08 06:29 | Emergency (ER) | payer OTHER, MEDICARE, SELFPAY ==
[2023-10-08] VITALS (22 sets, daily range): BP systolic 97–121; BP diastolic 60–75; PULSE 48–75; RESP 12–20; TEMP 36.6; O2SAT 93–100
--- NOTE | ~2023-10-08 | CT_ITS ---
CT ANGIOGRAM NECK AND HEAD History: Dizziness. Technique: Axial noncontrast imaging of the brain was performed. Serial spiral axial images through t he head and neck were then obtained during arterial phase IV injection of 100 cc of Omnipaque 350. 3- D postprocessing and MIP images were then reconstructed on the remote workstation. Dose reduction chuy hnique was used on this scan by utilizing automated exposure control and iterative reconstruction chuy hnique. The dose-length product (DLP) was 1592.29 mGy-cm. COMPARISON: 05/27/2020 CTA neck findings: Bilateral vertebral arteries are patent. Bilateral common carotid, internal carot id, and external carotid arteries are patent. No large vessel occlusion. No stenosis or aneurysm. The proximal right internal carotid artery demonstrates 0% stenosis relative to the normal distal artery lumen diameter. The proximal left internal carotid artery demonstrates 0% stenosis relative to the n ormal distal artery lumen diameter. CTA head findings: Distal vertebral arteries, basilar artery, and posterior cerebral arteries are pat ent. Distal internal carotid arteries, middle cerebral arteries, and anterior cerebral arteries are p atent. No large vessel occlusion. No stenosis or aneurysm. Axial noncontrast imaging of brain is unremarkable. No acute infarct, intracranial hemorrhage, or mas s lesion. Aj-white differentiation preserved. No mass effect or midline shift. Ventricles and subar achnoid spaces are unremarkable. Paranasal sinuses and mastoid air cells are clear. Impression: No significant abnormality seen. Reviewed, dictated and finalized at [facility]. [place] WIRELESS SALES REPRESENTATIVE Impression: No significant abnormality seen.
--- NOTE | 2023-10-08 06:41 | ECG_ITS ---
Measurements Intervals [place] Rate: 68 P: 56 [place]: 156 QRS: 66 QRSD: 90 T: 65 QT: 423 QTc: 450 Interpretive Statements SINUS RHYTHM COMPARED TO ECG 07/18/2023 00:45:45 NO SIGNIFICANT CHANGES Electronically Signed On 10-08-2023 11:25:04 DELIVERY CLERK by Christin Jean Baptiste M.D.
[2023-10-08 07:05] LABS: Basophils Percent Auto 0.4 % (0.2-1.2); Eosinophils Percent Auto 0.1 % (0-4.4); Immature Granulocyte Absolute 0.02 K/mm3 (0.00-0.031); Immature Granulocyte Percent A 0.3 % (0-0.5); Lymphocytes Absolute Auto 1.22 K/mm3 (0.9-3.2); Lymphocytes Percent Auto 17.6 % (18.3-44.2); Mean Corpuscular HGB Conc 30.8 g/dl (32-36); Mean Corpuscular Hemoglobin 28.4 pg (26-34); Mean Corpuscular Volume 92.2 fl (80-100); Mean Platelet Volume 10.9 fl (7.4-10.4); Monocytes Absolute Auto 0.5 K/mm3 (0.1-0.6); Monocytes Percent Auto 7.2 % (2.6-8.5); Neutrophils Absolute Auto 5.2 K/mm3 (1.3-6.7); Neutrophils Percent Auto 74.4 % (45.5-73.1); Platelet Count Result 270 k/mm3 (150-375); Red Blood Count 4.23 M/mm3 (4.2-5.4); Red Cell Distribution Width 19.9 % (11.5-14.5); White Blood Count 6.9 K/mm3 (4.5-10.0)
--- NOTE | 2023-10-08 07:23 | ED.GENADULT ---
HPI - General Adult General Chief complaint: Dizziness Stated complaint: dizziness Time Seen by Provider: 10/08/23 07:03 History of Present Illness HPI narrative: Patient is a 53-year-old female who presents to the emergency department this morning complaining of dizziness that has been ongoing for the past 2 days. Patient states that the dizziness is present at rest and when she gets up from a seated position. When asked if her dizziness is a room spinning sensation or lightheadedness and patient states that as a bolus. Patient states that when she closes her eyes she feels so her dizziness gets worse. Dizziness is not precipitated with head movement. She is currently denying any additional symptoms including chest pain, shortness of breath, nausea, vomiting, abdominal pain, dysuria, hematuria, constipation, diarrhea, melena, hematochezia, fevers or chills. Patient also denies any headaches, lightheadedness, blurry visions, focal weakness, numbness and or tingling. There are no other modifying, alleviating, or precipitating factors at this time. Related Data Allergies Allergy/AdvReac Type Severity Reaction Status Date / Time azithromycin Allergy Gastrointestinal Verified 07/17/23 18:30 Upset metoclopramide [From Reglan] Allergy Shakiness Verified 07/17/23 18:30 prochlorperazine Allergy Shakiness Verified 07/17/23 18:29 [From Compazine] Review of Systems Review of Systems: All systems are reviewed and are negative unless stated otherwise in the HPI. Exam Narrative: General: Alert, awake, afebrile, in no acute distress. HEENT: PERRL, no rhinorrhea, no post nasal drip, oropharynx clear, no nystagmus. Neck: Trachea midline, no JVD, no lymphadenopathy. Cardiovascular: Regular rate and rhythm, no murmurs, rubs or gallops, no peripheral edema. Respiratory: Clear to auscultation bilaterally, no tachypnea, no wheezing, no rhonchi, no rubs, no respiratory distress. Abdomen: Soft, nontender, nondistended, no rebound, no guarding, no peritoneal signs. Musculoskeletal: No joint swelling or deformity, normal muscle tone. Skin: No rashes or petechia, no signs of infection. Psychiatric: Alert and oriented, normal behavior and judgment for situation. Neurological: Alert and oriented to person, place, and time. Follows all commands. 5/5 motor strength in the bilateral upper and lower extremity, sensation intact in the bilateral upper and lower extremities, cranial nerves 2-12 grossly intact, no focal deficits, speech is clear and fluent. Course Vital Signs Vital signs: Vital Signs Temperature 97.9 F 10/08/23 06:34 Pulse Rate 65 10/08/23 06:34 Respiratory Rate 13 10/08/23 06:34 Blood Pressure 121/75 10/08/23 06:34 Pulse Oximetry 100 10/08/23 06:34 Oxygen Delivery Room Air 10/08/23 06:34 Temperature 97.9 F 10/08/23 06:34 Pulse Rate 48 L 10/08/23 09:31 Respiratory Rate 16 10/08/23 09:31 Blood Pressure 98/60 L 10/08/23 09:31 Pulse Oximetry 100 10/08/23 09:31 Oxygen Delivery Room Air 10/08/23 06:34 Medical Decision Making MDM Narrative Medical decision making narrative: The patient was evaluated by myself in the emergency department. History is obtained from patient who is an independent historian and physical exam was performed. External medical records were reviewed at this time. IV was established and pertinent tests were ordered. Patient was administered a 1 L fluid bolus with normal saline and 4 mg of IV Zofran for nausea. EKG was obtained which revealed sinus rhythm at a rate of [address] changes, T wave inversions or evidence of acute ischemia. EKG was independently interpreted by me and is currently pending official cardiology read. Laboratory results obtained revealing no acute process. Urinalysis revealed 2+ ketones otherwise unremarkable. Patient was administered a 2 L bolus with normal saline. Imaging studies obtained included CT brain without IV
[2023-10-08 07:33] LABS: Alanine Aminotransferase 40 U/L (6-35); Albumin Level 4.6 g/dL (3.5-5.1); Alkaline Phosphatase 106 U/L (38-126); Anion Gap 11 mmol/L (8-16); Aspartate Amino Transferase 40 U/L (14-36); Bilirubin,Total 0.6 mg/dL (0.2-1.3); Blood Urea Nitrogen 11 mg/dL (7-17); Calcium 9.7 mg/dL (8.4-10.2); Carbon Dioxide 22 mmol/L (22-30); Chloride 106 mmol/L (98-107); Estimated CRCL calculation 68 ml/min; Estimated Glomerular Filt Rate > 60; Glucose 103 mg/dL (65-110); Sodium 139 mmol/L (137-145)
[2023-10-08] MEDS: SODIUM CHLORIDE 0.9% IV 1,000 ML 999 ML IV CONT ×2 (08:08→09:55)
[2023-10-08] MEDS: ONDANSETRON INJ 4 MG/2 ML VIAL IV PUSH (08:09)
[2023-10-08] MEDS: MECLIZINE HCL 25 MG TABLET PO (09:05)
[2023-10-08 09:28] LABS: Appearance Urine Clear (Clear); Bacteria Urine None Seen /hpf; Bilirubin Urine Negative (Negative); Blood Urine Negative (Negative); Color Urine Yellow (Yellow); Glucose Urine UA Negative (Negative); Ketones Urine 2+ mg/dL (Negative); Leukocyte Esterase Ur 1+ LEU/UL (Negative); Need Manual Microscopic Reviewed; Nitrate Urine Negative (Negative); Non Pathogenic Casts 0-2; Protein Urine Negative (Negative); RBC Urine 0-2 /hpf (0-2); Specific Grav Ur 1.018 (1.001-1.035); Squamous Epithelial Cell Urine None seen /hpf (Few); Urobilinogen Urine 0.2 mg/dL (<2.0); WBC Urine 0-5 /hpf; pH Urine 7.5 (5.0-9.0)
[2023-10-08 09:29] LABS: Add Urine Microscopic? YES
--- NOTE | 2023-10-08 11:06 | PC.NURSE ---
Ambulated to restroom with steady gait. Denies further dizziness.
== END 2023-10-08 11:08 | disposition home or self-care (01) ==
PROVIDERS: Emergency Medicine; Emergency Provider Emergency Medicine; PCP Family Medicine
DX: R42 Dizziness and giddiness (principal); E86.0 Dehydration
CPT/HCPCS: 36415; 70496; 70498; 80053; 81001; 85025; 93005; 96361; 96374; 99284; A9270; J2405; J7030; Q9967

== ENCOUNTER 2023-10-10 08:20 | Emergency (ER) | payer OTHER, MEDICARE, SELFPAY ==
[2023-10-10] VITALS (7 sets, daily range): BP systolic 107–118; BP diastolic 63–67; PULSE 58–70; RESP 4–20; TEMP 36.9; O2SAT 99–100
--- NOTE | ~2023-10-10 | CT_ITS ---
EXAMINATION: CT abdomen pelvis w con INDICATION: Epigastric pain and vomiting TECHNIQUE: Computed tomographic images of the abdomen and pelvis were obtained after the administrati on of 100 cc of Omnipaque 350 intravenous contrast. The dose-length product (DLP) was 263.65 mGy-cm. Automated exposure control and iterative reconstruction technique were employed. COMPARISON: 07/17/2023, 04/05/2021 FINDINGS: The lung bases are clear. The heart size is normal. Changes of cholecystectomy are noted. A peripheral calcification in the right hepatic lobe may reflect old granulomatous disease or possibly prior trauma. The spleen, pancreas, and adrenal glands are normal. Cysts of the kidneys measure up t o 11 mm on the right. No pathologically enlarged abdominal or pelvic lymph nodes are identified. No f ree intraperitoneal gas or evidence of bowel obstruction. There is a small volume of pelvic ascites. There is mild chronic wall thickening of the ascending colon, correlate with colonoscopy history. The re is mild lumbar spondylosis. IMPRESSION: 1. No CT correlate for the patient's symptoms. Reviewed, dictated and finalized at location F. ION ROLLER
[2023-10-10 08:54] LABS: Basophils Percent Auto 0.5 % (0.2-1.2); Eosinophils Percent Auto 0.3 % (0-4.4); Hematocrit 36.5 % (37.0-47.0); Hemoglobin 11.8 g/dL (12.0-15.0); Immature Granulocyte Absolute 0.02 K/mm3 (0.00-0.031); Immature Granulocyte Percent A 0.3 % (0-0.5); Lymphocytes Absolute Auto 1.32 K/mm3 (0.9-3.2); Lymphocytes Percent Auto 19.9 % (18.3-44.2); Mean Corpuscular HGB Conc 32.3 g/dl (32-36); Mean Corpuscular Hemoglobin 28.7 pg (26-34); Mean Corpuscular Volume 88.8 fl (80-100); Mean Platelet Volume 10.2 fl (7.4-10.4); Monocytes Absolute Auto 0.5 K/mm3 (0.1-0.6); Monocytes Percent Auto 6.9 % (2.6-8.5); Neutrophils Absolute Auto 4.8 K/mm3 (1.3-6.7); Neutrophils Percent Auto 72.1 % (45.5-73.1); Platelet Count Result 276 k/mm3 (150-375); Red Blood Count 4.11 M/mm3 (4.2-5.4); Red Cell Distribution Width 19.8 % (11.5-14.5); White Blood Count 6.6 K/mm3 (4.5-10.0)
[2023-10-10 08:55] LABS: Appearance Urine Clear (Clear); Bilirubin Urine Negative (Negative); Blood Urine Negative (Negative); Color Urine Yellow (Yellow); Glucose Urine UA Negative (Negative); Ketones Urine Trace mg/dL (Negative); Leukocyte Esterase Ur Negative LEU/UL (Negative); Nitrate Urine Negative (Negative); Protein Urine Negative (Negative); Specific Grav Ur 1.005 (1.001-1.035); Urobilinogen Urine 0.2 mg/dL (<2.0)
[2023-10-10 09:10] LABS: Alanine Aminotransferase 33 U/L (6-35); Albumin Level 4.3 g/dL (3.5-5.1); Alkaline Phosphatase 90 U/L (38-126); Anion Gap 9 mmol/L (8-16); Aspartate Amino Transferase 41 U/L (14-36); Bilirubin,Total 0.6 mg/dL (0.2-1.3); Blood Urea Nitrogen 5 mg/dL (7-17); Calcium 9.6 mg/dL (8.4-10.2); Carbon Dioxide 26 mmol/L (22-30); Chloride 106 mmol/L (98-107); Estimated CRCL calculation 68 ml/min; Estimated Glomerular Filt Rate > 60; Glucose 90 mg/dL (65-110); Lipase 187 U/L (23-300); Potassium 3.3 mmol/L (3.4-5.0); Sodium 141 mmol/L (137-145)
[2023-10-10 09:13] LABS: Add Urine Microscopic? NO
--- NOTE | 2023-10-10 09:21 | ED.ABDPAIN ---
HPI - Abdominal Pain General Chief Complaint: Abdominal Pain Stated Complaint: abd pain/n/v Time Seen by Provider: 10/10/23 09:06 Source: patient Mode of arrival: ambulatory Limitations: no limitations History of Present Illness HPI narrative: This is a 53 year old female that presents to the ER for epigastric pain. Ongoing over the last couple of weeks. Reports every time she eats she either has pain or feels nauseous. 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 Reports associated vomiting and diarrhea. Denies fever, dysuria or hematuria. Related Data Allergies Allergy/AdvReac Type Severity Reaction Status Date / Time azithromycin AdvReac Gastrointestinal Verified 10/10/23 09:24 Upset metoclopramide [From Reglan] AdvReac Shakiness Verified 10/10/23 09:24 prochlorperazine AdvReac Shakiness Verified 10/10/23 09:24 [From Compazine] Review of Systems Review of Systems: CONSTITUTIONAL: Denies fever GASTROINTESTINAL: Reports abdominal pain, nausea, vomiting, and diarrhea. GENITOURINARY: Denies dysuria or hematuria. All systems reviewed & are unremarkable except as noted in HPI and below PMFSH Past Medical History Medical History (Updated 10/10/23 @ 11:42 by Jenny Leach PA-C) History of atrial fibrillation History of gastroesophageal reflux (GERD) History of hyperlipidemia Surgical History Surgical History (Updated 10/10/23 @ 09:26 by Jenny Leach PA-C) History of appendectomy History of cholecystectomy Social History Social History (Updated 10/10/23 @ 09:26 by Jenny Leach PA-C) Substance use: never Exam Narrative: GENERAL: Well-appearing, thin, and in no acute distress. HEAD: Normocephalic, atraumatic. EYES: EOMI. CHEST: Clear to auscultation. No respiratory distress. No wheezes rales or rhonchi HEART: Regular rate and rhythm. No murmur heard. Normal peripheral pulses. ABDOMEN: Soft, nondistended, normal active bowel sounds. Mild tenderness to palpation in epigastrium, without guarding EXTREMITIES: Normal range of motion. No edema. SKIN: Warm, dry, no rash. NEURO: No focal deficits. Alert and oriented x3. PSYCH: Normal mood and affect Course Course Emergency Course: patient and family updated on workup and agree with plan of care. able to tolerate p.o. challenge Vital Signs Vital signs: Vital Signs Temperature 98.4 F 10/10/23 08:30 Pulse Rate 64 10/10/23 08:30 Respiratory Rate 16 10/10/23 08:30 Blood Pressure 118/63 10/10/23 08:30 Pulse Oximetry 100 10/10/23 08:30 Oxygen Delivery Room Air 10/10/23 08:30 Temperature 98.4 F 10/10/23 08:30 Pulse Rate 68 10/10/23 10:45 Respiratory Rate 20 10/10/23 10:45 Blood Pressure 107/67 10/10/23 09:31 Pulse Oximetry 100 10/10/23 10:45 Oxygen Delivery Room Air 10/10/23 08:30 MDM - Abdominal Pain MDM Narrative Medical decision making narrative: Patient presents to the emergency department for epigastric pain and nausea. Ongoing over the last several weeks. This has been a chronic problem for which she is following with GI currently. she is afebrile and nontoxic appearing. Her vitals are stable. CBC without leukocytosis. Shows normocytic anemia hemoglobin of 11.8. Metabolic panel with mild hypokalemia. Lipase is normal. UA without evidence of infection. Influenza and COVID screens are negative. CT abdomen and pelvis without acute findings. Patient and family updated on workup and agree with plan of care. Able to tolerate p.o. challenge. She is to follow up with her pole climber. She was given warnings to return to the ER Differential Diagnosis Differential diagnosis: Likely gastroenteritis, pancreatitis and other (influenza, COVID, GERD, esophagitis) Lab Data Attestation: I reviewed the patient's lab results. 10/10/23 08:45 10/10/23 08:45 Labs: Lab Results 10/10/23 10/10/23 Range/Units 08:45 09:18 WBC 6.6 (4.5-10.0) K/mm
[2023-10-10 09:25] LABS: Magnesium 2.2 mg/dL (1.6-2.3)
[2023-10-10 09:30] LABS: Pregnancy On Board Control Positive; Urine Pregnancy Test Negative
[2023-10-10] MEDS: SODIUM CHLORIDE 0.9% IV 1,000 ML 999 ML IV CONT (09:40)
[2023-10-10] MEDS: PANTOPRAZOLE SODIUM IV 40 MG VIAL IV PUSH (09:40)
[2023-10-10] MEDS: ONDANSETRON INJ 4 MG/2 ML VIAL IV PUSH (09:40)
[2023-10-10 10:09] LABS: Influenza A QL RT-PCR Negative (Negative); Influenza B QL RT-PCR Negative (Negative); SARS-CoV-2 RNA PCR Negative (Negative)
== END 2023-10-10 12:26 | disposition home or self-care (01) ==
PROVIDERS: Emergency Medicine; Emergency Provider Physician Assistant; PCP Internal Medicine
DX: R10.13 Epigastric pain (principal); R11.0 Nausea; E87.6 Hypokalemia; I48.91 Unspecified atrial fibrillation; E78.5 Hyperlipidemia, unspecified; Z20.822 Contact with and (suspected) exposure to COVID-19
CPT/HCPCS: 36415; 74177; 80053; 81003; 81025; 83690; 83735; 85025; 87636; 96361; 96374; 96375; 99284; C9113; J2405; J7030; Q9967

== ENCOUNTER 2023-10-15 13:27 | Emergency (ER) | payer MEDICARE, SELFPAY ==
--- NOTE | ~2023-10-15 | XR_ITS ---
EXAMINATION: XR chest 2V DATE: 10/15/2023 13:58 INDICATION: Left chest pain. Shortness of breath. TECHNIQUE: Frontal and lateral views of the chest were obtained. COMPARISON: Chest single view 07/17/2023, CT abdomen and pelvis 10/10/2013 FINDINGS: There is no pneumonia, pleural effusion, or pneumothorax. The heart size is normal. IMPRESSION: 1. No acute cardiopulmonary disease. Reviewed, dictated and finalized at location A. INE LEAD BURNER
--- NOTE | 2023-10-15 13:37 | ECG_ITS ---
Measurements Intervals [place] Rate: 62 P: 57 CO: 159 QRS: 63 QRSD: 94 T: 56 QT: 400 QTc: 406 Interpretive Statements SINUS RHYTHM NONSPECIFIC ST ABNORMALITY ABNORMAL ECG COMPARED TO ECG 10/08/2023 07:02:24 NO SIGNIFICANT CHANGES Electronically Signed On 10-15-2023 14:01:00 FASHION JOURNALIST by Ivan Marie M.D.
[2023-10-15 13:43] VITALS: BP 104/61; PULSE 65; RESP 16; TEMP 37; O2SAT 100
[2023-10-15 13:50] LABS: Basophils Percent Auto 0.4 % (0.2-1.2); Eosinophils Percent Auto 0.8 % (0-4.4); Hematocrit 39.2 % (37.0-47.0); Hemoglobin 12.3 g/dL (12.0-15.0); Immature Granulocyte Absolute 0.02 K/mm3 (0.00-0.031); Immature Granulocyte Percent A 0.4 % (0-0.5); Lymphocytes Absolute Auto 1.24 K/mm3 (0.9-3.2); Lymphocytes Percent Auto 24.7 % (18.3-44.2); Mean Corpuscular HGB Conc 31.4 g/dl (32-36); Mean Corpuscular Hemoglobin 28.8 pg (26-34); Mean Corpuscular Volume 91.8 fl (80-100); Mean Platelet Volume 10.8 fl (7.4-10.4); Monocytes Absolute Auto 0.5 K/mm3 (0.1-0.6); Monocytes Percent Auto 9.7 % (2.6-8.5); Neutrophils Absolute Auto 3.2 K/mm3 (1.3-6.7); Platelet Count Result 268 k/mm3 (150-375); Red Blood Count 4.27 M/mm3 (4.2-5.4); Red Cell Distribution Width 19.7 % (11.5-14.5)
[2023-10-15 13:59] LABS: Alanine Aminotransferase 30 U/L (6-35); Albumin Level 4.8 g/dL (3.5-5.1); Alkaline Phosphatase 75 U/L (38-126); Anion Gap 8 mmol/L (8-16); Aspartate Amino Transferase 38 U/L (14-36); Bilirubin,Total 0.5 mg/dL (0.2-1.3); Blood Urea Nitrogen 5 mg/dL (7-17); Calcium 9.7 mg/dL (8.4-10.2); Carbon Dioxide 28 mmol/L (22-30); Chloride 105 mmol/L (98-107); Estimated Glomerular Filt Rate > 60; Glucose 126 mg/dL (65-110); Lipase 262 U/L (23-300); Potassium 3.5 mmol/L (3.4-5.0); Sodium 141 mmol/L (137-145)
[2023-10-15 14:01] LABS: INR 1.3; Prothrombin Time 16.9 Seconds (11.1-14.7)
[2023-10-15 14:02] LABS: Partial Thromboplastin Time 32.8 SECONDS (22.3-36.8)
[2023-10-15 14:11] LABS: Troponin I < 0.012 ng/mL (0.000-0.034)
--- NOTE | 2023-10-15 15:50 | PC.NURSE ---
patient left without being seen. encouraged to return if needed. verbalized understanding
== END 2023-10-15 16:03 | disposition left against medical advice (07) ==
LOC: ANHED 15:58
PROVIDERS: Emergency Provider Student in an Organized Health Care Education/Training Program; PCP Internal Medicine
DX: R06.02 Shortness of breath (principal)
CPT/HCPCS: 36415; 71046; 80053; 83690; 84484; 85025; 85610; 85730; 93005; 99199

== ENCOUNTER 2023-11-19 06:34 | Emergency (ER) | payer OTHER, MEDICARE, SELFPAY ==
--- NOTE | ~2023-11-19 | XR_ITS ---
Clinical Indication: Chest pain PA and lateral views of the chest: Comparison: 10/15/2023 Findings: The lungs are clear, without evidence of focal consolidation or pleural effusion. Cardiome diastinal silhouette is within normal limits. Bones and soft tissues are unremarkable. Impression: Normal chest. Reviewed, dictated and finalized at location . Impression: Normal chest.
--- NOTE | 2023-11-19 06:35 | ECG_ITS ---
Measurements Intervals [place] Rate: 61 P: 66 ND: 156 QRS: 34 QRSD: 90 T: 47 QT: 434 QTc: 438 Interpretive Statements SINUS RHYTHM BASELINE ARTIFACT- I, II, III, AVR, AVL, AVF, V5 NORMAL ECG COMPARED TO ECG 06/11/2023 18:15:29 NO SIGNIFICANT CHANGES Electronically Signed On 11-19-2023 7:56:03 CDT by Cabrera Moya D.O.
[2023-11-19 06:43] VITALS: BP 100/58; PULSE 61; RESP 12; O2SAT 100
[2023-11-19 07:02] VITALS: O2SAT 100
[2023-11-19 07:04] VITALS: BP 118/57; PULSE 60; RESP 17; O2SAT 100
[2023-11-19 07:05] LABS: Basophils Percent Auto 0.3 % (0.2-1.2); Eosinophils Absolute Auto 0.1 K/mm3 (0-0.3); Eosinophils Percent Auto 0.9 % (0-4.4); Hematocrit 37.9 % (37.0-47.0); Hemoglobin 12.2 g/dL (12.0-15.0); Immature Granulocyte Absolute 0.03 K/mm3 (0.00-0.031); Immature Granulocyte Percent A 0.4 % (0-0.5); Lymphocytes Absolute Auto 1.45 K/mm3 (0.9-3.2); Lymphocytes Percent Auto 18.9 % (18.3-44.2); Mean Corpuscular HGB Conc 32.2 g/dl (32-36); Mean Corpuscular Hemoglobin 29.9 pg (26-34); Mean Corpuscular Volume 92.9 fl (80-100); Mean Platelet Volume 10.5 fl (7.4-10.4); Monocytes Absolute Auto 0.7 K/mm3 (0.1-0.6); Monocytes Percent Auto 8.7 % (2.6-8.5); Neutrophils Absolute Auto 5.5 K/mm3 (1.3-6.7); Neutrophils Percent Auto 70.8 % (45.5-73.1); Platelet Count Result 297 k/mm3 (150-375); Red Blood Count 4.08 M/mm3 (4.2-5.4); Red Cell Distribution Width 16.8 % (11.5-14.5); White Blood Count 7.7 K/mm3 (4.5-10.0)
[2023-11-19 07:17] LABS: Alanine Aminotransferase 45 U/L (6-35); Albumin Level 4.6 g/dL (3.5-5.1); Alkaline Phosphatase 96 U/L (38-126); Anion Gap 7 mmol/L (8-16); Aspartate Amino Transferase 44 U/L (14-36); Bilirubin,Total 0.7 mg/dL (0.2-1.3); Blood Urea Nitrogen 6 mg/dL (7-17); Calcium 9.8 mg/dL (8.4-10.2); Carbon Dioxide 29 mmol/L (22-30); Chloride 104 mmol/L (98-107); Estimated CRCL calculation 55 ml/min; Estimated Glomerular Filt Rate > 60; Glucose 108 mg/dL (65-110); Lipase 210 U/L (23-300); Potassium 3.5 mmol/L (3.4-5.0); Sodium 140 mmol/L (137-145)
[2023-11-19 07:29] LABS: Troponin I < 0.012 ng/mL (0.000-0.034)
[2023-11-19 07:34] LABS: INR 1.2; Partial Thromboplastin Time 33.7 Seconds (22.3-36.8)
[2023-11-19] MEDS: DICYCLOMINE HCL INJ 20 MG/2 ML VIAL IM (08:11)
[2023-11-19] MEDS: ONDANSETRON INJ 4 MG/2 ML VIAL IV PUSH (08:11)
--- NOTE | 2023-11-19 09:32 | ECG_ITS ---
Measurements Intervals [place] Rate: 51 P: 54 MO: 160 QRS: 18 QRSD: 82 T: 45 QT: 442 QTc: 409 Interpretive Statements SINUS BRADYCARDIA WITH SINUS ARRHYTHMIA BASELINE ARTIFACT- I, II, AVR, AVL, AVF, V1, V4 BORDERLINE ECG COMPARED TO ECG 11/19/2023 06:45:13 SINUS BRADYCARDIA NOW PRESENT SINUS ARRHYTHMIA NOW PRESENT Electronically Signed On 11-19-2023 9:58:39 CDT by Cabrera Moya D.O.
[2023-11-19 09:35] VITALS: BP 140/86; PULSE 58; RESP 16; O2SAT 98
[2023-11-19 10:03] LABS: Troponin I < 0.012 ng/mL (0.000-0.034)
--- NOTE | 2023-11-19 11:13 | ED.GENADULT ---
HPI - General Adult General Chief complaint: Chest Pain Stated complaint: heart palpitations, chest pain, nausea Time Seen by Provider: 11/19/23 07:00 History of Present Illness HPI narrative: patient is a 53-year-old female who presents ER with multiple complaints. Reports she has had some epigastric bloating new heartburn. She has discomfort with eating and drinking. Discomfort moved into her chest earlier this morning. She has had workup with GI recently BC. Denies fevers or chills or sweats. She takes Mylanta and famotidine. Related Data Home Medications Medication Instructions Recorded Confirmed aluminum-mag hydroxide-simethicone 10 ml PO QID PRN Acid Reflux 05/28/20 10/29/23 400 mg-400 mg-40 mg/5 mL oral susp (Mylanta Maximum Strength) simethicone 125 mg chewable tablet 125 mg PO QID PRN Abdominal 05/28/20 10/29/23 (Gas-X Extra Strength) Discomfort apixaban 5 mg tablet (Eliquis) 5 mg PO BID 10/23/23 10/29/23 atorvastatin 40 mg tablet 40 mg PO QHS 10/23/23 10/29/23 famotidine 20 mg tablet 20 mg PO DAILY PRN 10/23/23 10/29/23 metoprolol succinate 25 mg 25 mg PO DAILY 10/23/23 10/29/23 tablet,extended release 24 hr pantoprazole 40 mg tablet,delayed 40 mg PO QAM 10/23/23 10/29/23 release flecainide 100 mg tablet 100 mg PO Q12H 10/29/23 10/29/23 Allergies Allergy/AdvReac Type Severity Reaction Status Date / Time prochlorperazine AdvReac Severe Confusion Verified 10/29/23 10:19 metoclopramide [From Reglan] AdvReac Intermediate anxiety Verified 10/29/23 10:19 azithromycin AdvReac Unknown STOMACH Verified 10/29/23 10:19 UPSET Review of Systems Review of Systems: All systems reviewed & are unremarkable except as noted in HPI and below Constitutional: Constitutional: Reports no additional constitutional complaints ENT: Reports system reviewed and no additional complaints, except as documented Cardiovascular: Cardiovascular: Reports chest pain, Denies rapid heart rate and Denies radiating jaw, neck or arm pain Respiratory: Respiratory: Reports no additional respiratory complaints Gastrointestinal: Gastrointestinal: Reports abdominal pain, Denies constipation, Reports diarrhea, Reports nausea and Denies vomiting Genitourinary: Genitourinary: Reports no additional female genitourinary complaints [facility] Past Medical History Medical History (Reviewed 10/29/23 @ 10:20 by Deana Green [facility]) Adenomatous colon polyp Anemia Anxiety Anxiety and depression Arthritis Arthritis Atrial fibrillation Celiac disease Diverticulosis GERD (gastroesophageal reflux disease) GERD (gastroesophageal reflux disease) Headache History of atrial fibrillation History of gastroesophageal reflux (GERD) History of hyperlipidemia Irritable bowel syndrome with constipation Migraine headache Neuropathy Surgical History Surgical History History of appendectomy History of delivery History of cholecystectomy History of cholecystectomy History of Gary fundoplication History of tubal ligation Hx of emergency section Family History Family History (Reviewed 10/29/23 @ 10:20 by Deana Green [facility]) Mother Family history of elevated blood lipids Family history of arthritis Sibling Family history of arthritis Grandparent Cerebrovascular accident Family history of cardiovascular disease Hypertension Diabetes mellitus Other Heart disease Acute myocardial infarction Father Alcoholism Mother Alcoholism Depression Anxiety Grandparent Throat cancer Cerebrovascular accident Heart problem Social History Social History Smoking packs per day: 0.5 Smoking cigarettes per day: 10.0 Years smoked: 10 Smoking pack-years: 5.00 Smoking status: Current some day smoker Tobacco type: cigarettes and e-cigarettes/vaping Second hand tobacco smoke exposure: No Alc
[2023-11-19 11:41] VITALS: BP 100/65; PULSE 64; RESP 12; O2SAT 100
== END 2023-11-19 11:42 | disposition home or self-care (01) ==
PROVIDERS: Emergency Medicine; Emergency Provider Emergency Medicine; PCP Internal Medicine
DX: K58.1 Irritable bowel syndrome with constipation (principal); I48.91 Unspecified atrial fibrillation; E78.5 Hyperlipidemia, unspecified; G62.9 Polyneuropathy, unspecified; K21.9 Gastro-esophageal reflux disease without esophagitis; M19.90 Unspecified osteoarthritis, unspecified site; F17.210 Nicotine dependence, cigarettes, uncomplicated; F17.290 Nicotine dependence, other tobacco product, uncomplicated; Z86.010 Personal history of colon polyps; Z90.49 Acquired absence of other specified parts of digestive tract; Z79.01 Long term (current) use of anticoagulants; R00.1 Bradycardia, unspecified
CPT/HCPCS: 36415; 71046; 80053; 83690; 84484; 85025; 85610; 85730; 93005; 96372; 96374; 99284; J0500; J2405

== ENCOUNTER 2023-11-20 04:50 | Emergency (ER) | payer OTHER, MEDICARE, SELFPAY ==
[2023-11-20 04:56] VITALS: BP 114/67; PULSE 67; RESP 15; TEMP 36.2; O2SAT 97
[2023-11-20 05:18] VITALS: BP 137/86; PULSE 64; RESP 15; O2SAT 99
--- NOTE | 2023-11-20 05:22 | ED.GENADULT ---
HPI - General Adult General Chief complaint: Nausea/Vomiting/Diarrhea Stated complaint: vomiting, dizzy Time Seen by Provider: 11/20/23 05:04 History of Present Illness HPI narrative: This is a 53-year-old female presenting nausea vomiting. Patient has a long history of abdominal pain associated with nausea vomiting which he associates to IBS. Says it has been getting worse over the last 2 weeks. She was seen here yesterday and given symptomatic treatment with improvement. She went home and then started having vomiting again this morning. She does have some epigastric discomfort. No fever chills chest pain difficulty breathing or urinary symptoms. She has appointment with GI in the next several weeks. Her says they dealing with this issue for the last 8 years. Patient has a history of anxiety and depression and she becomes tearful several times during the interview. Related Data Home Medications Medication Instructions Recorded Confirmed aluminum-mag hydroxide-simethicone 10 ml PO QID PRN Acid Reflux 05/28/20 10/29/23 400 mg-400 mg-40 mg/5 mL oral susp (Mylanta Maximum Strength) simethicone 125 mg chewable tablet 125 mg PO QID PRN Abdominal 05/28/20 10/29/23 (Gas-X Extra Strength) Discomfort apixaban 5 mg tablet (Eliquis) 5 mg PO BID 10/23/23 10/29/23 atorvastatin 40 mg tablet 40 mg PO QHS 10/23/23 10/29/23 famotidine 20 mg tablet 20 mg PO DAILY PRN 10/23/23 10/29/23 metoprolol succinate 25 mg 25 mg PO DAILY 10/23/23 10/29/23 tablet,extended release 24 hr pantoprazole 40 mg tablet,delayed 40 mg PO QAM 10/23/23 10/29/23 release flecainide 100 mg tablet 100 mg PO Q12H 10/29/23 10/29/23 Allergies Allergy/AdvReac Type Severity Reaction Status Date / Time prochlorperazine AdvReac Severe Confusion Verified 10/29/23 10:19 metoclopramide [From Reglan] AdvReac Intermediate anxiety Verified 10/29/23 10:19 azithromycin AdvReac Unknown STOMACH Verified 10/29/23 10:19 UPSET PMFSH Past Medical History Medical History Adenomatous colon polyp Anemia Anxiety Anxiety and depression Arthritis Arthritis Atrial fibrillation Celiac disease Diverticulosis GERD (gastroesophageal reflux disease) GERD (gastroesophageal reflux disease) Headache History of atrial fibrillation History of gastroesophageal reflux (GERD) History of hyperlipidemia Irritable bowel syndrome with constipation Migraine headache Neuropathy Surgical History Surgical History History of appendectomy History of delivery History of cholecystectomy History of cholecystectomy History of Gary fundoplication History of tubal ligation Hx of emergency section Family History Family History Mother Family history of elevated blood lipids Family history of arthritis Sibling Family history of arthritis Grandparent Cerebrovascular accident Family history of cardiovascular disease Hypertension Diabetes mellitus Other Heart disease Acute myocardial infarction Father Alcoholism Mother Alcoholism Depression Anxiety Grandparent Throat cancer Cerebrovascular accident Heart problem Social History Social History Smoking packs per day: 0.5 Smoking cigarettes per day: 10.0 Years smoked: 10 Smoking pack-years: 5.00 Smoking status: Current some day smoker Tobacco type: cigarettes and e-cigarettes/vaping Second hand tobacco smoke exposure: No Alcohol intake: never Substance use: never Substance use type: marijuana Last use: 05/21/20 Do You Feel Safe in your Home?: Yes Lack of Transportation: No Lack of Food: Never True Current Housing: I Have Housing Concerned About Future Housing: No Difficulty Paying Gas/Electric Bills: No Difficulty Paying for Meds:
[2023-11-20 05:23] LABS: Basophils Percent Auto 0.6 % (0.2-1.2); Eosinophils Absolute Auto 0.1 K/mm3 (0-0.3); Eosinophils Percent Auto 2.2 % (0-4.4); Hematocrit 39.3 % (37.0-47.0); Hemoglobin 12.7 g/dL (12.0-15.0); Immature Granulocyte Absolute 0.02 K/mm3 (0.00-0.031); Immature Granulocyte Percent A 0.4 % (0-0.5); Lymphocytes Absolute Auto 1.56 K/mm3 (0.9-3.2); Lymphocytes Percent Auto 30.8 % (18.3-44.2); Mean Corpuscular HGB Conc 32.3 g/dl (32-36); Mean Corpuscular Hemoglobin 29.8 pg (26-34); Mean Corpuscular Volume 92.3 fl (80-100); Mean Platelet Volume 10.9 fl (7.4-10.4); Monocytes Absolute Auto 0.6 K/mm3 (0.1-0.6); Monocytes Percent Auto 11.3 % (2.6-8.5); Neutrophils Absolute Auto 2.8 K/mm3 (1.3-6.7); Neutrophils Percent Auto 54.7 % (45.5-73.1); Platelet Count Result 319 k/mm3 (150-375); Red Blood Count 4.26 M/mm3 (4.2-5.4); Red Cell Distribution Width 16.7 % (11.5-14.5); White Blood Count 5.1 K/mm3 (4.5-10.0)
[2023-11-20] MEDS: SODIUM CHLORIDE 0.9% IV 1,000 ML 999 ML IV CONT (05:26)
[2023-11-20] MEDS: FAMOTIDINE 20 MG/2 ML VIAL IV PUSH (05:27)
[2023-11-20] MEDS: DICYCLOMINE HCL INJ 20 MG/2 ML VIAL IM (05:28)
[2023-11-20 05:29] LABS: Appearance Urine Clear (Clear); Bacteria Urine None Seen /hpf; Bilirubin Urine Negative (Negative); Blood Urine Negative (Negative); Color Urine Yellow (Yellow); Glucose Urine UA Negative (Negative); Ketones Urine Negative (Negative); Leukocyte Esterase Ur 3+ LEU/UL (Negative); Nitrate Urine Negative (Negative); Non Pathogenic Casts 0-2; Protein Urine Negative (Negative); RBC Urine 0-2 /hpf (0-2); Specific Grav Ur 1.005 (1.001-1.035); Squamous Epithelial Cell Urine Few /hpf (Few); Urobilinogen Urine 0.2 mg/dL (<2.0); WBC Urine 51-100 /hpf (0-3)
[2023-11-20 05:33] VITALS: BP 110/51; PULSE 63
[2023-11-20 05:34] VITALS: BP 108/59; PULSE 61
[2023-11-20 05:36] VITALS: BP 115/98; PULSE 85
[2023-11-20 05:36] LABS: Add Urine Microscopic? YES
[2023-11-20 05:40] LABS: Alanine Aminotransferase 41 U/L (6-35); Albumin Level 4.9 g/dL (3.5-5.1); Alkaline Phosphatase 99 U/L (38-126); Anion Gap 7 mmol/L (8-16); Aspartate Amino Transferase 41 U/L (14-36); Bilirubin,Total 0.8 mg/dL (0.2-1.3); Blood Urea Nitrogen 6 mg/dL (7-17); Calcium 10.1 mg/dL (8.4-10.2); Carbon Dioxide 29 mmol/L (22-30); Chloride 104 mmol/L (98-107); Estimated CRCL calculation 60 ml/min; Estimated Glomerular Filt Rate > 60; Glucose 105 mg/dL (65-110); Lipase 204 U/L (23-300); Potassium 3.5 mmol/L (3.4-5.0); Sodium 140 mmol/L (137-145)
[2023-11-20] MEDS: TRIMETHOBENZAMIDE HCL 200 MG/2 ML VIAL IM (05:44)
[2023-11-20 06:20] VITALS: BP 93/65; PULSE 66; RESP 12; O2SAT 100
== END 2023-11-20 06:49 | disposition home or self-care (01) ==
PROVIDERS: Emergency Provider Emergency Medicine; PCP Internal Medicine
DX: N39.0 Urinary tract infection, site not specified (principal); R11.2 Nausea with vomiting, unspecified; I48.91 Unspecified atrial fibrillation; E78.5 Hyperlipidemia, unspecified; K90.0 Celiac disease; K21.9 Gastro-esophageal reflux disease without esophagitis; K58.1 Irritable bowel syndrome with constipation; M19.90 Unspecified osteoarthritis, unspecified site; F32.A Depression, unspecified; F41.9 Anxiety disorder, unspecified; F17.210 Nicotine dependence, cigarettes, uncomplicated; F17.290 Nicotine dependence, other tobacco product, uncomplicated; Z86.2 Personal history of diseases of the blood and blood-forming organs and certain disorders involving the immune mechanism; Z86.010 Personal history of colon polyps; Z90.49 Acquired absence of other specified parts of digestive tract; Z79.01 Long term (current) use of anticoagulants
CPT/HCPCS: 36415; 80053; 81025; 83690; 85025; 87086; 87088; 96360; 96372; 96374; 99284; J0500; J3250; J7030

== ENCOUNTER 2024-02-10 15:04 | Outpatient (CLI) | payer MEDICARE, OTHER, SELFPAY ==
[2024-02-10 08:00] LABS: Anion Gap 5 mmol/L (4-12); Blood Urea Nitrogen 12 mg/dL (7-17); Carbon Dioxide 32 mmol/L (22-30); Chloride 105 mmol/L (98-107); Estimated Glomerular Filt Rate > 60; Glucose 99 mg/dL (65-110); Potassium 4.1 mmol/L (3.4-5.0); Sodium 142 mmol/L (137-145)
[2024-02-10 08:39] LABS: Hemoglobin A1C 5.2 % (<5.7)
== END 2024-02-10 15:05 | disposition home or self-care (01) ==
PROVIDERS: PCP Internal Medicine; Visit Provider Nurse Practitioner
DX: E16.2 Hypoglycemia, unspecified (principal)
CPT/HCPCS: 36415; 80048; 83036; 84443

== ENCOUNTER 2024-04-04 09:07 | Outpatient (CLI) | payer OTHER, MEDICARE, SELFPAY ==
--- NOTE | ~2024-04-04 | MR_ITS ---
EXAMINATION: MR lumbar spine wo con DATE: 04/04/2024 09:32 INDICATION: Radiculopathy, lumbar region. Low back pain. TECHNIQUE: Magnetic resonance imaging (MRI) of the lumbar spine was performed without intravenous con trast. Sequences included sagittal T2-weighted FSE, sagittal T2-weighted FS FSE, sagittal T1-weighted FSE, and axial T2-weighted FSE. COMPARISON: None FINDINGS: There is 10 degrees dextroscoliosis of thoracolumbar spine. Vertebral body heights are norm al. Intervertebral disc heights are normal. The distal spinal cord signal intensity is normal. The co nus medullaris is at L1-L2. The following disc levels are specifically discussed: L1-L2: The disc does not extend beyond the endplate margin. There is mild bilateral facet joint osteo arthritis. There is no neural foraminal stenosis. There is no central canal stenosis. L2-L3: The disc is bulging. There is mild bilateral facet joint osteoarthritis. There is mild bilater al neural foraminal stenosis. There is mild central canal stenosis. L3-L4: The disc is bulging. There is moderate bilateral facet joint osteoarthritis. There is mild lacey ateral neural foraminal stenosis. There is mild central canal stenosis. L4-L5: The disc is bulging and has an annular fissure. There is severe bilateral facet joint osteoart hritis. There is moderate right and mild left neural foraminal stenosis. There is mild central canal stenosis. L5-S1: The disc is bulging and has an annular fissure. There is severe bilateral facet joint osteoart hritis. There is mild bilateral neural foraminal stenosis. There is mild central canal stenosis. IMPRESSION: 1. Mild lumbar spondylosis. 2. Thoracolumbar dextroscoliosis. Reviewed, dictated and finalized at location A.
== END 2024-04-04 09:08 ==
LOC: MICIMG 09:08
PROVIDERS: PCP Internal Medicine; Visit Provider Nurse Practitioner
DX: M43.06 Spondylolysis, lumbar region (principal); M41.85 Other forms of scoliosis, thoracolumbar region
CPT/HCPCS: 72148

== ENCOUNTER 2024-05-04 10:21 | Outpatient (CLI) | payer OTHER, MEDICARE, SELFPAY ==
--- NOTE | 2024-05-04 11:30 | NEURO_ITS ---
Impression: # Complains of pain in right hand. # Normal Nerve Conduction Study. # No Carpal Tunnel Syndrome or ulnar neuropathy. # Normal needle/EMG exam. Nerve Conduction Studies Anti Sensory Summary Table Stim Site NR Peak (ms) P-T Amp (?V) Site1 Site2 Delta-P (ms) Dist (cm) Nahid (m/s) Left Median Anti Sensory (2-3nd Digit) Wrist 2.8 74.0 Wrist 2-3nd Digit 2.8 14.0 50 Wrist 2.9 81.4 Wrist 2-3nd Digit 2.8 14.0 50 Right Median Anti Sensory (2-3nd Digit) Wrist 3.0 70.1 Wrist 2-3nd Digit 3.0 14.0 47 Wrist 2.9 81.9 Wrist 2-3nd Digit 3.0 14.0 47 Left Radial Anti Sensory (Base 1st Digit) Wrist 1.9 38.1 Wrist Base 1st Digit 1.9 0.0 Right Radial Anti Sensory (Base 1st Digit) Wrist 2.5 16.8 Wrist Base 1st Digit 2.5 0.0 Left Ulnar Anti Sensory (5th Digit) Wrist 2.7 63.2 Wrist 5th Digit 2.7 14.0 52 Right Ulnar Anti Sensory (5th Digit) Wrist 2.5 73.1 Wrist 5th Digit 2.5 14.0 56 Motor Summary Table Stim Site NR Onset (ms) O-P Amp (mV) Site1 Site2 Delta-0 (ms) Dist (cm) Nahid (m/s) Left Median Motor (Abd Poll Brev) Wrist 3.0 5.4 Elbow Wrist 4.5 26.0 58 Elbow 7.5 5.4 Right Median Motor (Abd Poll Brev) Wrist 2.6 8.2 Elbow Wrist 4.7 26.0 55 Elbow 7.3 8.7 Left Ulnar Motor (Abd Dig Minimi) Wrist 2.6 6.9 A Elbow Wrist 4.9 28.0 57 A Elbow 7.5 6.7 Right Ulnar Motor (Abd Dig Minimi) Wrist 2.6 7.7 A Elbow Wrist 5.1 28.0 55 A Elbow 7.7 7.2 F Wave Studies NR F-Lat (ms) L-R F-Lat (ms) Left Median (Mrkrs) (Abd Poll Brev) 27.27 0.40 Right Median (Mrkrs) (Abd Poll Brev) 26.86 0.40 Left Ulnar (Mrkrs) (Abd Dig Min) 27.66 0.16 Right Ulnar (Mrkrs) (Abd Dig Min) 27.50 0.16 EMG Side Muscle Nerve Root Ins Act Fibs Amp Dur Recrt Comment Right 1stDorInt Ulnar C8-T1 Nml Nml Nml Nml Nml Right Ext Indicis Radial (Post Int) C7-8 Nml Nml Nml Nml Nml Right Ext Digitorum Radial (Post Int) C7-8 Nml Nml Nml Nml Nml Right BrachioRad Radial C5-6 Nml Nml Nml Nml Nml Right PronatorTeres Median C6-7 Nml Nml Nml Nml Nml Right Abd Poll Brev Median C8-T1 Nml Nml Nml Nml Nml Right ABD Dig Min Ulnar C8-T1 Nml Nml Nml Nml Nml Left 1stDorInt Ulnar C8-T1 Nml Nml Nml Nml Nml Left Ext Indicis Radial (Post Int) C7-8 Nml Nml Nml Nml Nml Left Ext Digitorum Radial (Post Int) C7-8 Nml Nml Nml Nml Nml Left BrachioRad Radial C5-6 Nml Nml Nml Nml Nml Left PronatorTeres Median C6-7 Nml Nml Nml Nml Nml Left Abd Poll Brev Median C8-T1 Nml Nml Nml Nml Nml Left ABD Dig Min Ulnar C8-T1 Nml Nml Nml Nml Nml MTDD
== END 2024-05-04 10:22 | disposition home or self-care (01) ==
LOC: ANHNEURO 10:23
PROVIDERS: PCP Internal Medicine; Visit Provider Nurse Practitioner
DX: M79.642 Pain in left hand (principal); M79.641 Pain in right hand; R20.0 Anesthesia of skin; R20.2 Paresthesia of skin
CPT/HCPCS: 95886; 95911

== ENCOUNTER 2024-05-10 11:43 | Outpatient (CLI) | payer OTHER, MEDICARE, SELFPAY ==
--- NOTE | ~2024-05-10 | XR_ITS ---
XR cervical spine min 6V Ordering provider: Jenny Tello NP History: . R20.0 - Anesthesia of skin HX 3 HERNIATED DISK PAIN X 1 YR . Comparison: None. FINDINGS: VERTEBRAL BODIES: Normal height and alignment. No visible fracture or subluxation. The dens is intact . DISK SPACES: Well maintained. Multilevel facet joint disease. Multilevel uncovertebral joint osteoart hritic changes. No significant intervertebral foraminal narrowing. PARASPINOUS SOFT TISSUES: No prevertebral soft tissue swelling. IMPRESSION: No acute osseous abnormality cervical spine. Multilevel facet joint disease. Reviewed, dictated and finalized at location A.
== END 2024-05-10 11:44 | disposition home or self-care (01) ==
LOC: ANHIMG 11:46
PROVIDERS: PCP Internal Medicine; Visit Provider Nurse Practitioner
DX: M47.812 Spondylosis without myelopathy or radiculopathy, cervical region (principal); R20.0 Anesthesia of skin; R20.2 Paresthesia of skin
CPT/HCPCS: 72052

== ENCOUNTER 2024-05-12 11:01 | Outpatient (CLI) | payer OTHER, MEDICARE, SELFPAY ==
[2024-05-12 12:15] LABS: Rheumatoid Factor 56.8 IU/ML (<12)
[2024-05-13 13:54] LABS: ANA Cascade Screen NEGATIVE (NEGATIVE)
== END 2024-05-12 11:02 | disposition home or self-care (01) ==
LOC: ANHLAB 11:05
PROVIDERS: PCP Internal Medicine; Visit Provider Nurse Practitioner
DX: M25.50 Pain in unspecified joint (principal)
CPT/HCPCS: 36415; 86038; 86225; 86235; 86364; 86430

== ENCOUNTER 2024-05-19 08:15 | Emergency (ER) | payer OTHER, MEDICARE, SELFPAY ==
--- NOTE | ~2024-05-19 | CT_ITS ---
EXAMINATION: CT abdomen pelvis w con DATE: 05/19/2024 09:25 INDICATION: Left flank pain radiating to the left lower quadrant with burning painful urination TECHNIQUE: Computed tomography (CT) of the abdomen and pelvis was performed with 100 mL Omnipaque-350 intravenous contrast. Automated exposure control and iterative reconstruction technique were employe d. The dose-length product was 377.36 mGy-cm. COMPARISON: 10/10/2023 FINDINGS: Lung bases are clear. Heart size is normal. No pericardial or pleural effusion. Focal hepatic steatos is at the ligamentum teres. Chronic mild intra and extrahepatic ductal dilation likely related to julius or cholecystectomy with surgical clips the gallbladder fossa. Small calcified hepatic nodule consiste nt with old granulomatous disease. Spleen, pancreas and bilateral adrenal glands are normal. Unchange d bilateral low-attenuation renal cysts, the larger measuring 1.5 cm at the upper pole of the right k idney. Bilateral ureters are unremarkable. No evident urolithiasis or hydronephrosis. Bladder, uterus and bilateral adnexa are unremarkable. Suture line at the tip the cecum likely) appendectomy. Bowels are otherwise unremarkable with no obstruction. Tiny fat-containing umbilical hernia. No free intrap eritoneal gas or fluid. No pathologically enlarged abdominal or pelvic lymphadenopathy. Mild upper candelario mbar dextrocurvature with mild spondylosis. IMPRESSION: 1. No urolithiasis, hydronephrosis or other acute intra-abdominal/pelvic process. Reviewed, dictated and finalized at location B. IMPRESSION: 1. No urolithiasis, hydronephrosis or other acute intra-abdominal/pelvic proces s.
[2024-05-19 08:24] VITALS: BP 120/86; PULSE 67; RESP 18; TEMP 36.6; O2SAT 100
[2024-05-19] MEDS: LACTATED RINGERS 1,000 ML 999 ML IV CONT (08:42)
[2024-05-19] MEDS: ONDANSETRON INJ 4 MG/2 ML VIAL IV PUSH (08:42)
[2024-05-19] MEDS: MORPHINE SULFATE (*CRX) 4 MG/ML INJ IV PUSH (08:42)
[2024-05-19 08:43] LABS: Basophils Percent Auto 0.4 % (0.2-1.2); Eosinophils Absolute Auto 0.1 K/mm3 (0-0.3); Eosinophils Percent Auto 0.8 % (0-4.4); Hematocrit 40.1 % (37.0-47.0); Hemoglobin 12.8 g/dL (12.0-15.0); Immature Granulocyte Absolute 0.02 K/mm3 (0.00-0.031); Immature Granulocyte Percent A 0.3 % (0-0.5); Lymphocytes Absolute Auto 1.51 K/mm3 (0.9-3.2); Lymphocytes Percent Auto 19.6 % (18.3-44.2); Mean Corpuscular HGB Conc 31.9 g/dl (32-36); Mean Corpuscular Hemoglobin 30.8 pg (26-34); Mean Corpuscular Volume 96.4 fl (80-100); Mean Platelet Volume 9.9 fl (7.4-10.4); Monocytes Absolute Auto 0.5 K/mm3 (0.1-0.6); Monocytes Percent Auto 6.5 % (2.6-8.5); Neutrophils Absolute Auto 5.6 K/mm3 (1.3-6.7); Neutrophils Percent Auto 72.4 % (45.5-73.1); Platelet Count Result 324 k/mm3 (150-375); Red Blood Count 4.16 M/mm3 (4.2-5.4); White Blood Count 7.7 K/mm3 (4.5-10.0)
--- NOTE | 2024-05-19 08:52 | ED.FEMALEGU ---
HPI - Female Genitourinary General Chief complaint: Urogenital-Female Stated complaint: flank pain Time Seen by Provider: 05/19/24 08:21 History of Present Illness HPI Narrative: 54-year-old female with a past medical history significant for cyclic vomiting syndrome, atrial fibrillation on Xarelto and rate control medications. She presents today with 2 days of left-sided low flank pain radiating to her left groin associated with some burning urination and frequency, urgency. She states she has a remote history of kidney infections and procedures from a urological perspective as a child but has been asymptomatic for many years. Denies any recent injuries or traumas. Was otherwise normal state of health. She states she has some baseline nausea and frequent episodes of vomiting at home for which she takes medications. She states her Zofran home did help alleviate some of her nausea. Denies any fever, chills, chest pain, shortness a breath, vaginal discharge or vaginal bleeding. No history of kidney stones or nausea. No trauma recent injuries. Related Data Home Medications Medication Instructions Recorded Confirmed aluminum-mag hydroxide-simethicone 10 ml PO QID PRN Acid Reflux 05/28/20 04/01/24 400 mg-400 mg-40 mg/5 mL oral susp (Mylanta Maximum Strength) simethicone 125 mg chewable tablet 125 mg PO QID PRN Abdominal 05/28/20 04/01/24 (Gas-X Extra Strength) Discomfort apixaban 5 mg tablet (Eliquis) 5 mg PO BID 10/23/23 04/01/24 atorvastatin 40 mg tablet 40 mg PO QHS 10/23/23 04/01/24 famotidine 20 mg tablet 20 mg PO DAILY PRN 10/23/23 04/01/24 metoprolol succinate 25 mg 25 mg PO DAILY 10/23/23 04/01/24 tablet,extended release 24 hr flecainide 100 mg tablet 100 mg PO Q12H 10/29/23 04/01/24 pantoprazole 40 mg tablet,delayed 40 mg PO BID 01/04/24 04/01/24 release Allergies Allergy/AdvReac Type Severity Reaction Status Date / Time prochlorperazine AdvReac Severe Confusion Verified 02/15/24 08:55 metoclopramide [From Reglan] AdvReac Intermediate anxiety Verified 02/15/24 08:55 azithromycin AdvReac Unknown STOMACH Verified 02/15/24 08:55 UPSET promethazine [From Phenergan] AdvReac Jittery Verified 05/19/24 08:26 Review of Systems Review of Systems: As [facility] Past Medical History Medical History Adenomatous colon polyp Anemia Anxiety Anxiety and depression Arthritis Arthritis Atrial fibrillation Celiac disease Diverticulosis GERD (gastroesophageal reflux disease) GERD (gastroesophageal reflux disease) Headache History of atrial fibrillation History of gastroesophageal reflux (GERD) History of hyperlipidemia Irritable bowel syndrome with constipation Migraine headache Neuropathy Surgical History Surgical History History of appendectomy History of delivery History of cholecystectomy History of cholecystectomy History of Gary fundoplication History of tubal ligation Hx of emergency section Family History Family History Mother Family history of elevated blood lipids Family history of arthritis Sibling Family history of arthritis Grandparent Cerebrovascular accident Family history of cardiovascular disease Hypertension Diabetes mellitus Other Heart disease Acute myocardial infarction Father Alcoholism Mother Alcoholism Depression Anxiety Grandparent Throat cancer Cerebrovascular accident Heart problem Social History Social History Smoking packs per day: 0.5 Smoking cigarettes per day: 10.0 Years smoked: 10 Smoking pack-years: 5.00 Smoking status: Current some day smoker Tobacco type: cigarettes and e-cigarettes/vaping Second hand tobacco smoke exposure: No Alcohol in
[2024-05-19 09:01] LABS: Add Urine Microscopic? YES; Appearance Urine Clear (Clear); Bacteria Urine None Seen /hpf; Bilirubin Urine Negative (Negative); Blood Urine Negative (Negative); Color Urine Yellow (Yellow); Glucose Urine UA Negative (Negative); Ketones Urine Negative (Negative); Leukocyte Esterase Ur 2+ LEU/UL (Negative); Nitrate Urine Negative (Negative); Non Pathogenic Casts 0-2; Protein Urine Negative (Negative); RBC Urine 0-2 /hpf (0-2); Specific Grav Ur 1.007 (1.001-1.035); Squamous Epithelial Cell Urine None Seen /hpf (Few); Urobilinogen Urine 0.2 mg/dL (<2.0); WBC Urine 0-5 /hpf (0-3); pH Urine 6.5 (5.0-9.0)
[2024-05-19 09:07] LABS: Alanine Aminotransferase 42 U/L (6-35); Albumin Level 4.7 g/dL (3.5-5.1); Alkaline Phosphatase 67 U/L (38-126); Anion Gap 9 mmol/L (4-12); Aspartate Amino Transferase 46 U/L (14-36); Bilirubin,Total 0.5 mg/dL (0.2-1.3); Blood Urea Nitrogen 9 mg/dL (7-17); Calcium 9.3 mg/dL (8.4-10.2); Carbon Dioxide 29 mmol/L (22-30); Chloride 101 mmol/L (98-107); Estimated CRCL calculation 67 ml/min; Estimated Glomerular Filt Rate > 60; Glucose 120 mg/dL (65-110); Potassium 3.6 mmol/L (3.4-5.0); Sodium 139 mmol/L (137-145)
--- NOTE | 2024-05-19 09:13 | ECG_ITS ---
Test Date: 2024-05-19 09:37:26 Measurements Intervals [place] Rate: 64 P: 63 HI: 193 QRS: 24 QRSD: 94 T: 39 QT: 436 QTc: 451 Interpretive Statements SINUS RHYTHM NORMAL ECG No previous ECG available for comparison Electronically Signed On 05-19-2024 10:38:53 CDT by Cabrera Moya D.O.
[2024-05-19 09:24] LABS: Lipase 190 U/L (23-300)
[2024-05-19 10:04] LABS: Troponin I < 0.012 ng/mL (0.000-0.034)
[2024-05-19 11:10] VITALS: BP 117/77; PULSE 71; RESP 18; O2SAT 100
[2024-05-19 11:33] VITALS: BP 118/61; PULSE 57; RESP 18; O2SAT 99
[2024-05-19 12:35] VITALS: BP 109/67; PULSE 54; RESP 20; TEMP 36.6; O2SAT 100
== END 2024-05-19 12:38 | disposition home or self-care (01) ==
PROVIDERS: Emergency Provider Student in an Organized Health Care Education/Training Program; PCP Internal Medicine
DX: R10.32 Left lower quadrant pain (principal); R11.2 Nausea with vomiting, unspecified; I48.91 Unspecified atrial fibrillation; E78.5 Hyperlipidemia, unspecified; K90.0 Celiac disease; K21.9 Gastro-esophageal reflux disease without esophagitis; K58.9 Irritable bowel syndrome, unspecified; M19.90 Unspecified osteoarthritis, unspecified site; G62.9 Polyneuropathy, unspecified; F32.A Depression, unspecified; F41.9 Anxiety disorder, unspecified; F17.210 Nicotine dependence, cigarettes, uncomplicated; F17.290 Nicotine dependence, other tobacco product, uncomplicated; Z86.010 Personal history of colon polyps; Z90.49 Acquired absence of other specified parts of digestive tract; Z79.01 Long term (current) use of anticoagulants; Z79.899 Other long term (current) drug therapy
CPT/HCPCS: 36415; 74177; 80053; 81001; 83690; 84484; 85025; 87086; 87088; 93005; 96361; 96374; 96375; 99284; J2270; J2405; J7120; Q9967

== ENCOUNTER 2024-05-29 14:25 | Emergency (ER) | payer OTHER, MEDICARE, SELFPAY ==
--- NOTE | ~2024-05-29 | XR_ITS ---
XR knee RT 3V Ordering provider: Panchito Torres MD History: . WENT TO STAND FRONT BENT POSITION FELT AN POP IN MEDIAL KNEE . Comparison: None. FINDINGS: BONES: No acute fracture or dislocation. JOINT SPACES: Normal. SOFT TISSUES: Normal. IMPRESSION: No acute osseous abnormality right knee. Reviewed, dictated and finalized at location A.
--- NOTE | ~2024-05-29 | US_ITS ---
RIGHT LOWER EXTREMITY VENOUS ULTRASOUND Ordering provider: Manuela Sierra PA-C History: . pain in R knee/lower leg . Comparison: None. FINDINGS: --COMMON FEMORAL: Patent and free of thrombus. Normal compressibility, phasic flow and augmentation. --PROXIMAL SUPERFICIAL FEMORAL: Patent and free of thrombus. Normal compressibility, phasic flow and augmentation. --DISTAL SUPERFICIAL FEMORAL: Patent and free of thrombus. Normal compressibility, phasic flow and au gmentation. --POPLITEAL: Patent and free of thrombus. Normal compressibility, phasic flow and augmentation. --POSTERIOR TIBIAL: Patent and free of thrombus. Normal compressibility, phasic flow and augmentation . IMPRESSION: Negative right lower extremity venous US. No deep vein thrombosis. Reviewed, dictated and finalized at location A.
--- NOTE | 2024-05-29 14:34 | ECG_ITS ---
Test Date: 2024-05-29 14:39:30 Measurements Intervals [place] Rate: 63 P: 40 SD: 169 QRS: 18 QRSD: 97 T: 15 QT: 452 QTc: 463 Interpretive Statements SINUS RHYTHM EARLY PRECORDIAL R/S TRANSITION BORDERLINE T WAVE ABNORMALITY- INFERIOR LEADS BASELINE ARTIFACT- I, II, III, AVR, AVL, AVF, V1-V6 BORDERLINE ECG Compared to ECG 05/19/2024 09:37:26 No significant changes Electronically Signed On 05-29-2024 15:36:59 CDT by Cabrera Moya D.O.
[2024-05-29 14:41] VITALS: BP 120/58; PULSE 57; RESP 14; TEMP 36.9; O2SAT 100
--- NOTE | 2024-05-29 14:45 | ED.GENADULT ---
HPI - General Adult General Chief complaint: Extremity Injury, Lower Stated complaint: R leg pain Time Seen by Provider: 05/29/24 14:37 Source: patient Mode of arrival: ambulatory Limitations: no limitations History of Present Illness HPI narrative: Patient is a 54 y/o female, with PMH of pAFIB on Eliquis, who presents to the ED with c/o R knee pain. Patient reports she was squatting down her by refrigerator today putting away groceries when she went to stand and felt a sharp pain in her R knee, felt like a snapping sensation. Patient reports she has had issues with this knee recently and has been going to PT for strengthening. She states the pain was severe at that time and she was unable to bear any weight on her R leg. Her then brought her to the ED. Upon arriving at the ED and getting out of the car, patient became dizzy/ lightheaded, diaphoretic, near syncopal, developed tunnel vision. She was brought immediately back to an ED room. She did not lose consciousness. She states she is feeling better currently. Feels slightly lightheaded with movements. Denies headache, focal numbness or weakness. Related Data Home Medications Medication Instructions Recorded Confirmed aluminum-mag hydroxide-simethicone 10 ml PO QID PRN Acid Reflux 05/28/20 04/01/24 400 mg-400 mg-40 mg/5 mL oral susp (Mylanta Maximum Strength) simethicone 125 mg chewable tablet 125 mg PO QID PRN Abdominal 05/28/20 04/01/24 (Gas-X Extra Strength) Discomfort apixaban 5 mg tablet (Eliquis) 5 mg PO BID 10/23/23 04/01/24 atorvastatin 40 mg tablet 40 mg PO QHS 10/23/23 04/01/24 famotidine 20 mg tablet 20 mg PO DAILY PRN 10/23/23 04/01/24 metoprolol succinate 25 mg 25 mg PO DAILY 10/23/23 04/01/24 tablet,extended release 24 hr flecainide 100 mg tablet 100 mg PO Q12H 10/29/23 04/01/24 pantoprazole 40 mg tablet,delayed 40 mg PO BID 01/04/24 04/01/24 release Allergies Allergy/AdvReac Type Severity Reaction Status Date / Time prochlorperazine AdvReac Severe Confusion Verified 05/29/24 14:47 metoclopramide [From Reglan] AdvReac Intermediate anxiety Verified 05/29/24 14:47 azithromycin AdvReac Unknown STOMACH Verified 05/29/24 14:47 UPSET promethazine [From Phenergan] AdvReac Jittery Verified 05/29/24 14:47 Review of Systems Review of Systems: All systems reviewed & are unremarkable except as noted in HPI. All systems reviewed & are unremarkable except as noted in HPI and below PMFSH Past Medical History Medical History Adenomatous colon polyp Anemia Anxiety Anxiety and depression Arthritis Arthritis Atrial fibrillation Celiac disease Diverticulosis GERD (gastroesophageal reflux disease) GERD (gastroesophageal reflux disease) Headache History of atrial fibrillation History of gastroesophageal reflux (GERD) History of hyperlipidemia Irritable bowel syndrome with constipation Migraine headache Neuropathy Surgical History Surgical History History of appendectomy History of delivery History of cholecystectomy History of cholecystectomy History of Gary fundoplication History of tubal ligation Hx of emergency section Family History Family History Mother Family history of elevated blood lipids Family history of arthritis Sibling Family history of arthritis Grandparent Cerebrovascular accident Family history of cardiovascular disease Hypertension Diabetes mellitus Other Heart disease Acute myocardial infarction Father Alcoholism Mother Alcoholism Depression Anxiety Grandparent Throat cancer Cerebrovascular accident Heart problem Social History Social History Smoking packs per day: 0.5 Smoking cigarettes per day: 10.0 Years smoked: 10
[2024-05-29 14:50] VITALS: BP 92/63; PULSE 61; RESP 18; O2SAT 100
[2024-05-29 14:59] LABS: Basophils Percent Auto 0.5 % (0.2-1.2); Eosinophils Absolute Auto 0.2 K/mm3 (0-0.3); Hematocrit 36.2 % (37.0-47.0); Hemoglobin 12.2 g/dL (12.0-15.0); Immature Granulocyte Absolute 0.01 K/mm3 (0.00-0.031); Immature Granulocyte Percent A 0.1 % (0-0.5); Lymphocytes Absolute Auto 3.54 K/mm3 (0.9-3.2); Lymphocytes Percent Auto 43.5 % (18.3-44.2); Mean Corpuscular HGB Conc 33.7 g/dl (32-36); Mean Corpuscular Hemoglobin 31.5 pg (26-34); Mean Corpuscular Volume 93.5 fl (80-100); Mean Platelet Volume 10.3 fl (7.4-10.4); Monocytes Absolute Auto 1.1 K/mm3 (0.1-0.6); Monocytes Percent Auto 13.8 % (2.6-8.5); Neutrophils Absolute Auto 3.3 K/mm3 (1.3-6.7); Neutrophils Percent Auto 40.1 % (45.5-73.1); Platelet Count Result 306 k/mm3 (150-375); Red Blood Count 3.87 M/mm3 (4.2-5.4); Red Cell Distribution Width 12.9 % (11.5-14.5); White Blood Count 8.1 K/mm3 (4.5-10.0)
[2024-05-29 15:13] LABS: Alanine Aminotransferase 29 U/L (6-35); Albumin Level 4.8 g/dL (3.5-5.1); Alkaline Phosphatase 78 U/L (38-126); Anion Gap 12 mmol/L (4-12); Aspartate Amino Transferase 36 U/L (14-36); Bilirubin,Total 0.3 mg/dL (0.2-1.3); Blood Urea Nitrogen 11 mg/dL (7-17); Calcium 9.5 mg/dL (8.4-10.2); Carbon Dioxide 23 mmol/L (22-30); Chloride 104 mmol/L (98-107); Estimated CRCL calculation 59 ml/min; Estimated Glomerular Filt Rate > 60; Glucose 109 mg/dL (65-110); Sodium 139 mmol/L (137-145)
[2024-05-29 15:22] LABS: Magnesium 2.1 mg/dL (1.6-2.3)
[2024-05-29] MEDS: POTASSIUM CHLORIDE 20 MEQ ER TABLET 40 MEQ PO (15:31)
[2024-05-29] MEDS: HYDROcodone/acetaminophen (*CRX) 5-325 MG TABLET 1 TAB PO (15:31)
[2024-05-29] MEDS: SODIUM CHLORIDE 0.9% IV 1,000 ML 999 ML IV CONT (15:33)
== END 2024-05-29 18:12 | disposition home or self-care (01) ==
PROVIDERS: Emergency Medicine; Emergency Provider Physician Assistant; PCP Internal Medicine
DX: M23.91 Unspecified internal derangement of right knee (principal); I48.91 Unspecified atrial fibrillation; Z79.01 Long term (current) use of anticoagulants; F41.8 Other specified anxiety disorders; K90.0 Celiac disease; K21.9 Gastro-esophageal reflux disease without esophagitis; E78.5 Hyperlipidemia, unspecified; Z72.0 Tobacco use
CPT/HCPCS: 36415; 73562; 80053; 83735; 85025; 93005; 93971; 96360; 99284; A9270; J7030

== ENCOUNTER 2024-06-13 10:45 | Outpatient (CLI) | payer MEDICARE, OTHER, SELFPAY ==
--- NOTE | ~2024-06-13 | MR_ITS ---
MRI of the right knee Clinical history: Medial meniscus tear Technique: Coronal proton density and proton density-weighted images, sagittal proton-density and T2 fat-sat images, and axial proton-density fat-saturated images were acquired. Findings: Anterior and posterior cruciate ligaments are intact. Medial collateral ligament and the la teral collateral ligament complex are intact. Popliteus tendon is intact. There is oblique flap tear of the posterior horn of the medial meniscus. No lateral meniscal tear steve dent. There is mild to moderate chondromalacia at the medial patellar facet extending to the apex. Remainin g articular cartilage in these relatively well-preserved. Bone marrow signals are intact. No significant joint effusion or Roberson's cyst. Extensor mechanism is intact. Impression: Oblique flap tear of the posterior horn of the medial meniscus. Chondromalacia patella, as detailed above. Reviewed, dictated and finalized at location . Impression: Oblique flap tear of the posterior horn of the medial meniscus. Chondromalacia patella, as detailed above.
== END 2024-06-13 10:46 | disposition home or self-care (01) ==
PROVIDERS: PCP Internal Medicine; Visit Provider Orthopaedic Surgery
DX: S83.241A Other tear of medial meniscus, current injury, right knee, initial encounter (principal); X58.XXXA Exposure to other specified factors, initial encounter; M22.41 Chondromalacia patellae, right knee
CPT/HCPCS: 73721

== ENCOUNTER 2024-06-14 06:18 | Emergency (ER) | payer OTHER, MEDICARE, SELFPAY ==
[2024-06-14 06:30] VITALS: BP 103/78; PULSE 62; RESP 16; TEMP 36.6; O2SAT 100
[2024-06-14 06:34] LABS: BEDSIDEPREGUCG Negative (Negative)
[2024-06-14 06:45] LABS: Basophils Percent Auto 0.5 % (0.2-1.2); Eosinophils Absolute Auto 0.1 K/mm3 (0-0.3); Eosinophils Percent Auto 0.7 % (0-4.4); Hematocrit 37.4 % (37.0-47.0); Hemoglobin 12.1 g/dL (12.0-15.0); Immature Granulocyte Absolute 0.04 K/mm3 (0.00-0.031); Immature Granulocyte Percent A 0.5 % (0-0.5); Lymphocytes Absolute Auto 1.39 K/mm3 (0.9-3.2); Lymphocytes Percent Auto 16.5 % (18.3-44.2); Mean Corpuscular HGB Conc 32.4 g/dl (32-36); Mean Corpuscular Hemoglobin 31.3 pg (26-34); Mean Corpuscular Volume 96.6 fl (80-100); Mean Platelet Volume 10.1 fl (7.4-10.4); Monocytes Absolute Auto 0.6 K/mm3 (0.1-0.6); Monocytes Percent Auto 6.7 % (2.6-8.5); Neutrophils Absolute Auto 6.3 K/mm3 (1.3-6.7); Neutrophils Percent Auto 75.1 % (45.5-73.1); Platelet Count Result 289 k/mm3 (150-375); Red Blood Count 3.87 M/mm3 (4.2-5.4); Red Cell Distribution Width 12.8 % (11.5-14.5); White Blood Count 8.4 K/mm3 (4.5-10.0)
[2024-06-14 06:52] LABS: Alanine Aminotransferase 43 U/L (6-35); Albumin Level 4.7 g/dL (3.5-5.1); Alkaline Phosphatase 74 U/L (38-126); Anion Gap 9 mmol/L (4-12); Aspartate Amino Transferase 48 U/L (14-36); Bilirubin,Total 0.5 mg/dL (0.2-1.3); Blood Urea Nitrogen 6 mg/dL (7-17); Calcium 9.7 mg/dL (8.4-10.2); Carbon Dioxide 29 mmol/L (22-30); Chloride 103 mmol/L (98-107); Estimated CRCL calculation 67 ml/min; Estimated Glomerular Filt Rate > 60; Glucose 121 mg/dL (65-110); Lipase 151 U/L (23-300); Potassium 3.8 mmol/L (3.4-5.0); Sodium 141 mmol/L (137-145)
[2024-06-14 06:53] LABS: Add Urine Microscopic? YES; Appearance Urine Clear (Clear); Bacteria Urine None Seen /hpf; Bilirubin Urine Negative (Negative); Blood Urine Negative (Negative); Color Urine Yellow (Yellow); Glucose Urine UA Negative (Negative); Ketones Urine Negative (Negative); Leukocyte Esterase Ur 1+ LEU/UL (Negative); Need Manual Microscopic Reviewed; Nitrate Urine Negative (Negative); Non Pathogenic Casts 0-2; Protein Urine Negative (Negative); RBC Urine 0-2 /hpf (0-2); Specific Grav Ur 1.005 (1.001-1.035); Squamous Epithelial Cell Urine None Seen /hpf (Few); Urobilinogen Urine 0.2 mg/dL (<2.0); WBC Urine 0-5 /hpf (0-3)
--- NOTE | 2024-06-14 07:53 | PC.NURSE ---
Assumed care of pt. Pt reports cramp like abdominal pain that is intermittent, rates pain 5. Pt ambulatory to BR with steady gait. Pt reports history of IBS & cyclic vomiting. Pt reports she is a marijuana user.
[2024-06-14 07:55] VITALS: BP 103/78; PULSE 83; RESP 16; TEMP 36.6; O2SAT 97
--- NOTE | 2024-06-14 08:07 | ED.ABDPAIN ---
HPI - Abdominal Pain General Chief Complaint: Abdominal Pain Stated Complaint: nausea, vomiting, abd pain Time Seen by Provider: 06/14/24 07:58 History of Present Illness HPI narrative: patient is a 54-year-old female with chronic issues related to her abdomen. She woke up this morning with vomiting. She reports she has had upset stomach for the last 4-5 days. She is scheduled to have a procedure at [facility] where they insert electrode to some measure her stomach acid. She has been compliant with home medications. no improvement with home Protonix or Zofran. Related Data Home Medications Medication Instructions Recorded Confirmed aluminum-mag hydroxide-simethicone 10 ml PO QID PRN Acid Reflux 05/28/20 05/31/24 400 mg-400 mg-40 mg/5 mL oral susp (Mylanta Maximum Strength) simethicone 125 mg chewable tablet 125 mg PO QID PRN Abdominal 05/28/20 05/31/24 (Gas-X Extra Strength) Discomfort apixaban 5 mg tablet (Eliquis) 5 mg PO BID 10/23/23 05/31/24 atorvastatin 40 mg tablet 40 mg PO QHS 10/23/23 05/31/24 famotidine 20 mg tablet 20 mg PO DAILY PRN 10/23/23 05/31/24 metoprolol succinate 25 mg 25 mg PO DAILY 10/23/23 05/31/24 tablet,extended release 24 hr flecainide 100 mg tablet 100 mg PO Q12H 10/29/23 05/31/24 pantoprazole 40 mg tablet,delayed 40 mg PO BID 01/04/24 05/31/24 release Allergies Allergy/AdvReac Type Severity Reaction Status Date / Time prochlorperazine AdvReac Severe Confusion Verified 06/14/24 06:18 metoclopramide [From Reglan] AdvReac Intermediate anxiety Verified 06/14/24 06:18 azithromycin AdvReac Unknown STOMACH Verified 06/14/24 06:18 UPSET promethazine [From Phenergan] AdvReac Jittery Verified 06/14/24 06:18 Review of Systems Review of Systems: All systems reviewed & are unremarkable except as noted in HPI and below Constitutional: Constitutional: Reports no additional constitutional complaints ENT: Reports system reviewed and no additional complaints, except as documented Cardiovascular: Cardiovascular: Reports no additional cardiovascular complaints Respiratory: Respiratory: Reports no additional respiratory complaints Gastrointestinal: Gastrointestinal: Reports abdominal pain, Denies constipation, Denies diarrhea, Reports nausea and Reports vomiting PMF Past Medical History Medical History (Updated 06/14/24 @ 08:10 by Sterling Nieves MD) Acute medial meniscus tear of right knee Adenomatous colon polyp Anemia Anxiety Anxiety and depression Arthritis Arthritis Atrial fibrillation Celiac disease Diverticulosis GERD (gastroesophageal reflux disease) GERD (gastroesophageal reflux disease) Headache History of atrial fibrillation History of gastroesophageal reflux (GERD) History of hyperlipidemia Irritable bowel syndrome with constipation Migraine headache Neuropathy Surgical History Surgical History History of appendectomy History of delivery History of cholecystectomy History of cholecystectomy History of Gary fundoplication History of tubal ligation Hx of emergency section Family History Family History Mother Family history of elevated blood lipids Family history of arthritis Sibling Family history of arthritis Grandparent Cerebrovascular accident Family history of cardiovascular disease Hypertension Diabetes mellitus Other Heart disease Acute myocardial infarction Father Alcoholism Mother Alcoholism Depression Anxiety Grandparent Throat cancer Cerebrovascular accident Heart problem Social History Social History Smoking packs per day: 0.5 Smoking cigarettes per day: 10.0 Years smoked: 10 Smoking pack-years: 5.00 Smoking status: Current some day smoker Tobacco type: cigarettes and e-cigarettes/vaping Second hand tobacco smoke exposure: N
[2024-06-14] MEDS: ONDANSETRON INJ 4 MG/2 ML VIAL IV PUSH (08:16)
[2024-06-14] MEDS: SODIUM CHLORIDE 0.9% IV 1,000 ML 999 ML IV CONT (08:16)
[2024-06-14] MEDS: BELLADONNA ALK/PHENOB ELIX 10 ML, MAG HYDROX/ALUMINUM HYD/SIMETH 30 ML, LIDOCAINE HCL 2... PO (08:16)
[2024-06-14 09:12] VITALS: BP 105/57; PULSE 93; RESP 20; O2SAT 100
== END 2024-06-14 09:14 | disposition home or self-care (01) ==
PROVIDERS: Student in an Organized Health Care Education/Training Program; Emergency Provider Emergency Medicine; PCP Internal Medicine
DX: R10.13 Epigastric pain (principal); F17.210 Nicotine dependence, cigarettes, uncomplicated; D64.9 Anemia, unspecified; F41.9 Anxiety disorder, unspecified; F32.A Depression, unspecified; I48.91 Unspecified atrial fibrillation; M19.90 Unspecified osteoarthritis, unspecified site; K21.9 Gastro-esophageal reflux disease without esophagitis
CPT/HCPCS: 36415; 80053; 81001; 81025; 83690; 85025; 87086; 96361; 96374; 99284; A9270; J2405; J7030

== ENCOUNTER 2024-07-14 00:54 | Day surgery (SDC) | payer MEDICARE, OTHER, SELFPAY ==
[2024-07-07 09:29] VITALS: BMI 24.9
--- NOTE | 2024-07-07 09:37 | PC.NURSE ---
Report to the Outpatient Waiting Room, entrance under the green pavilion located off [facility], at time _0730_ on date _[id number]_. Planned Procedure Time: _0930_.? Time changes happen often and if your time is changed the preop area will call you the afternoon before. - You and your visitor will be asked to self-screen and do not enter if you have any COVID symptoms. Please call surgeon if you need to reschedule. - A mask is optional within the hospital at this time. Patients may have clear liquids (water, carbonated beverages, clear teas, apple juice) until 3 hours prior to surgery with a maximum of 20 ounces. - No food from midnight until time of surgery and no smoking Take only the following medications with a SIP of water on the morning of surgery: ___Buspirone, Flecainide, Metoprolol and if needed Zofran DO NOT STOP ANY OF YOUR OTHER PRESCRIPTION MEDICATIONS PRIOR TO SURGERY EXCEPT THE FOLLOWING Medications to discontinue per physician ___Eliquis____ Date to take last [id number]__[id number]____qc patient says was told by Dr Andersen. Please no make-up, nail tajik, hairspray, perfume, deodorant, or body powder the day of surgery.? No jewelry (including any body piercings) or valuables the day of surgery, leave them at home.? Please take a shower or bath the night before, or the morning of, surgery with an antibacterial soap.? Wear comfortable, loose fitting clothing.? - Jewelry must be removed prior to entering the operating room.? Rings and piercings that are not removed may be cut off. - The hospital will not accept responsibility for valuables.? - Please leave all valuables, including medications, at home the day of surgery. If you are going home after surgery, a licensed minibus driver must drive you home.? - NO public transportation without another adult if you receive anesthesia. - We recommend that an adult stay with you for 24 hours following discharge. - We also recommend that you do not drive, make important decision, drink alcoholic beverages, or take any drugs that were not prescribed by your health care provider for at least 24 hours after your discharge time. Follow any additional instructions given to you from your surgeon. Telephone instructions given to __Debbie__and asked if any additional questions and then verbalized understanding. Patient advised to call surgeon office or pre surgery nurse liaison [phone] if any additional questions.
--- NOTE | 2024-07-13 12:32 | PM.IMHP ---
H&P: HPI History of Present Illness Date/Time: 07/13/24 12:32 Chief Complaint: Right knee pain Narrative: right knee pain after injury for the past 2 months. Catching and locking noted. Pain with weight-bearing and activity. Unrelieved with activity modification, exercises and anti-inflammatories. MRI shows medial meniscus tear. [facility] Past Medical History Medical History Acute medial meniscus tear of right knee Adenomatous colon polyp Anemia Anxiety Anxiety and depression Arthritis Arthritis Atrial fibrillation Celiac disease Chondromalacia of right knee Diverticulosis GERD (gastroesophageal reflux disease) GERD (gastroesophageal reflux disease) Headache History of atrial fibrillation History of gastroesophageal reflux (GERD) History of hyperlipidemia Irritable bowel syndrome with constipation Migraine headache Neuropathy Surgical History Surgical History History of appendectomy History of delivery History of cholecystectomy History of cholecystectomy History of [place] fundoplication History of tubal ligation Hx of emergency section Family History Family History Mother Family history of elevated blood lipids Family history of arthritis Sibling Family history of arthritis Grandparent Cerebrovascular accident Family history of cardiovascular disease Hypertension Diabetes mellitus Other Heart disease Acute myocardial infarction Father Alcoholism Mother Alcoholism Depression Anxiety Grandparent Throat cancer Cerebrovascular accident Heart problem Social History Social History Smoking packs per day: 0.5 Smoking cigarettes per day: 10.0 Years smoked: 15 Smoking pack-years: 7.50 Smoking status: Former smoker Tobacco type: cigarettes and e-cigarettes/vaping Second hand tobacco smoke exposure: No Smoking end date: 07/07/02 Additional smoking assessment comments: Currently vapes. Alcohol intake: never Substance use: never Substance use type: marijuana Other substance usage details: Daily Last use: 05/21/20 Do You Feel Safe in your Home?: Yes Lack of Transportation: No Lack of Food: Never True Current Housing: I Have Housing Concerned About Future Housing: No Difficulty Paying Gas/Electric Bills: No Difficulty Paying for Meds: No Currently Unemployed: No Education: Decline to Answer Difficulty w/ Childcare or Family Care: No Living arrangements: with family Occupation/Education: other Additional occupation/education comments: disabled Gender identity (if verbalized by the patient): Female Sexual Orientation (if Verbalized by the Patient): Straight or Heterosexual Spiritual care concerns: No Meds Home Medications and Allergies Home Medications Medication Instructions Recorded Confirmed Type aluminum-mag hydroxide-simethicone 10 ml PO QID PRN Acid Reflux 05/28/20 07/07/24 History 400 mg-400 mg-40 mg/5 mL oral susp (Mylanta Maximum Strength) simethicone 125 mg chewable tablet 125 mg PO QID PRN Abdominal 05/28/20 07/07/24 History (Gas-X Extra Strength) Discomfort dicyclomine 10 mg capsule 20 mg PO BID #60 caps 08/28/21 07/07/24 Rx acetaminophen 500 mg tablet 500 mg PO Q6H PRN pain #30 tabs 07/18/23 07/07/24 Rx ondansetron 4 mg disintegrating 4 mg PO Q8H PRN nausea and 07/18/23 07/07/24 Rx tablet vomiting #14 tabs meclizine 12.5 mg tablet 12.5 mg PO TID PRN dizziness #10 10/08/23 07/07/24 Rx tabs apixaban 5 mg tablet (Eliquis) 5 mg PO BID 10/23/23 07/07/24 History atorvastatin 40 mg tablet 40 mg PO QHS 10/23/23 07/07/24 History famotidine 20 mg tablet 20 mg PO DAILY PRN Acid Reflux 10/23/23 07/07/24 History metoprolol succinate 25 mg 25 mg PO DAILY 10/23/23 07/07/24 History tablet,extended release 24 hr flecainide 100 mg tablet 100 mg PO Q12H 10/29/23 07/07/24 History pantoprazole 40 mg tablet,delayed 40 mg PO BID 01/04/24 07/07/24 History release sumatriptan succinate 6 mg/0.5 mL 6 mg (0.5 mL) subcut ONCE 01/04/24 07/07/24 Rx subcutaneous pen injector abdominal migraine, cyclic vomit syndrome #1 mL amitriptyline 10 mg tablet 10 mg PO QHS #30 tabs 07/06/24 07/07/24 Rx buspirone 10 mg tablet 10 mg PO BID 07/07/24 07/07/24 History Allergies Allergy/AdvReac Type Severity Reaction Status Date / Time prochlorperazine AdvReac Severe Confusion Verified 07/07/24 09:25 metoclopramide [From Reglan] AdvReac Intermediate anxiety Verified 07/07/24 09:25 azithromycin AdvReac Unknown STOMACH Verified 07/07/24 09:25 UPSET promethazine [From Phenergan] AdvReac Jittery Verified 07/07/24 09:25 Exam Const: General: healthy appearing; No in distress or confusion Orientation/consciousness: oriented to person, oriented to place, oriented to time and No confusion HENMT: Head: normal to inspection, normocephalic and atraumatic Eyes: Conjunctivae: conjunctivae normal Sclera: sclerae normal Neck: Neck: supple and nontender Resp: Effort & Inspection: normal respiratory effort and no audible wheezes Cardio: Rate: regular rate Rhythm: regular rhythm Skin: General skin exam: no rashes or lesions noted Neuro: General: oriented to person, oriented to place, oriented to time and No confusion Extrem: Right upper extremity: normal to inspection Left upper extremity: normal to inspection Right lower extremity: hip/thigh Details: normal ROM; no tenderness, knee Details: tenderness (anterior and medial joint line ) Location: of the medial joint line (moderate ) and of the pre-patellar area (moderate ), swelling (peripatellar and medial joint ), abnormal ROM (active range of motion -10 degrees extension, 110 degrees flexion) Details: pain with active ROM during Details: in extension and in flexion, knee ligament exam normal Details: anterior drawer test normal, posterior drawer test normal, valgus stress test normal and Lesvia?s test normal, knee ligament exam abnormal Details: varus stress test normal (painful medial ) and Radha's Test Details: positive medially and foot Details: normal capillary refill, toes with normal ROM, vascular exam Details: dorsalis pedis pulse present and motor-sensory exam Details: light-touch normal; no tenderness; no edema Left lower extremity: normal to inspection, normal capillary refill and knee Details: normal ROM (Active extension 5, flexion 130) and knee ligament exam normal; no tenderness Psych: Affect: normal affect Assessment and Plan Assessment and plan (1) Acute medial meniscus tear of right knee: Qualifiers: Encounter type: subsequent encounter Qualified Code(s): S83.241D - Other tear of medial meniscus, current injury, right knee, subsequent encounter Code(s): S83.241A - Other tear of medial meniscus, current injury, right knee, initial encounter Status: Acute Assessment and Plan: Updated history, physical exam and radiographs reviewed with the patient. Interval changes reviewed. MRI done which shows medial meniscus tear and chondromalacia. Patient has had previous meniscus tear on the left side and underwent arthroscopic surgery. Discussed the condition, nature, etiology and course of natural history with the patient. Treatment options including surgical and nonoperative treatment were reviewed. Risks and benefits of each as well as alternatives reviewed. The patient's questions were answered. Patient desires operative treatment As she is having locking and catching. ? ? ? Discussed nonoperative and operative treatment options with the patient. Risks and benefits of each as well as alternatives were reviewed. All of the patient's questions were answered. The risks of surgery reviewed including but not limited to: Neurovascular damage, wound complication, infection, blood clot, pulmonary embolus, stroke, myocardial infarction, and anesthetic risks up to and including . Continued pain and possible dysfunction were explained. Specific risks of the procedure including later recurrence of deformity. No guarantees were offered. If hardware used, discussed risk of failure/ breakage and possible need for removal. If complications occur, the patient understands the need for further treatment, possible further surgery. Patient verbalizes understanding and wishes to proceed. ? PLAN: Right knee arthroscopy with debridement, partial meniscectomy, chondroplasty, synovectomy, proceed as indicated. (2) Chondromalacia of right knee: Code(s): M94.261 - Chondromalacia, right knee Status: Acute (3) Right knee pain: Qualifiers: Chronicity: acute Qualified Code(s): M25.561 - Pain in right knee Code(s): M25.561 - Pain in right knee Status: Acute
[2024-07-14] VITALS (9 sets, daily range): BP systolic 104–123; BP diastolic 58–68; PULSE 58–75; RESP 9–20; TEMP 36.8–36.9; O2SAT 97–100
--- NOTE | 2024-07-14 07:00 | WPDHPUPDATE1 ---
History and Physical Update Update Date/Time: 07/14/24 07:00 History and Physical has been reviewed, including an updated exam of the patient. There are NO changes in the patient's condition. Risks, benefits, and alternatives have been discussed and questions answered. Patient agrees to proceed with procedure.
[2024-07-14] MEDS: ACETAMINOPHEN 500 MG TABLET 1000 MG PO (08:04)
[2024-07-14] MEDS: LACTATED RINGERS 1,000 ML 30 ML IV CONT (08:05)
[2024-07-14] MEDS: KETOROLAC 15 MG/ML VIAL (*BKC) IV PUSH (08:08)
[2024-07-14] MEDS: BUPIVACAINE/EPINEPHRINE 0.5% 50 ML VIAL INFILTRATE (08:17)
[2024-07-14] MEDS: BUPivacaine HCL 0.25% PF 30 ML VIAL INFILTRATE (08:17)
--- NOTE | 2024-07-14 09:12 | P.PNAN_ITS ---
Anes - Initial Pre Proc Eval Procedure: Operation Date: 07/14/24 09:00 Proposed Procedures p Right Knee Arthroscopy, Debride Meniscus, Synovectomy, Chondroplasty, Proceed As Indicated - Vivek Andersen MD Date/Time: 07/14/24 09:12 Surgeon: Vivek Andersen MD Pre Op Diagnosis: right knee pain,medial meniscus tear,chondromalcia Patient Data Age: 54 Gender: F Height: 1.63 m Weight: 65.8 kg Last Vital Signs Temp 98.2 F 07/14/24 07:09 Pulse 58 L 07/14/24 07:09 Resp 20 07/14/24 07:09 BP 120/66 07/14/24 07:09 Pulse Ox 100 07/14/24 07:09 O2 Del Method Room Air 07/14/24 07:09 Allergies Allergy/AdvReac Type Severity Reaction Status Date / Time prochlorperazine AdvReac Severe Confusion Verified 07/14/24 08:01 metoclopramide [From Reglan] AdvReac Intermediate anxiety Verified 07/14/24 08:01 azithromycin AdvReac Unknown STOMACH Verified 07/14/24 08:01 UPSET promethazine [From Phenergan] AdvReac Jittery Verified 07/14/24 08:01 Home Medications Medication Instructions Recorded Confirmed Type aluminum-mag hydroxide-simethicone 10 ml PO QID PRN Acid Reflux 05/28/20 07/07/24 History 400 mg-400 mg-40 mg/5 mL oral susp (Mylanta Maximum Strength) simethicone 125 mg chewable tablet 125 mg PO QID PRN Abdominal 05/28/20 07/07/24 History (Gas-X Extra Strength) Discomfort dicyclomine 10 mg capsule 20 mg PO BID #60 caps 08/28/21 07/14/24 Rx acetaminophen 500 mg tablet 500 mg PO Q6H PRN pain #30 tabs 07/18/23 07/07/24 Rx ondansetron 4 mg disintegrating 4 mg PO Q8H PRN nausea and 07/18/23 07/07/24 Rx tablet vomiting #14 tabs meclizine 12.5 mg tablet 12.5 mg PO TID PRN dizziness #10 10/08/23 07/07/24 Rx tabs apixaban 5 mg tablet (Eliquis) 5 mg PO BID 10/23/23 07/14/24 History atorvastatin 40 mg tablet 40 mg PO QHS 10/23/23 07/14/24 History famotidine 20 mg tablet 20 mg PO DAILY PRN Acid Reflux 10/23/23 07/14/24 History metoprolol succinate 25 mg 25 mg PO DAILY 10/23/23 07/14/24 History tablet,extended release 24 hr flecainide 100 mg tablet 100 mg PO Q12H 10/29/23 07/14/24 History pantoprazole 40 mg tablet,delayed 40 mg PO BID 01/04/24 07/14/24 History release sumatriptan succinate 6 mg/0.5 mL 6 mg (0.5 mL) subcut ONCE 01/04/24 07/07/24 Rx subcutaneous pen injector abdominal migraine, cyclic vomit syndrome #1 mL amitriptyline 10 mg tablet 10 mg PO QHS #30 tabs 07/06/24 07/14/24 Rx buspirone 10 mg tablet 10 mg PO BID 07/07/24 07/14/24 History hydrocodone 5 mg-acetaminophen 325 1 tablet PO Q6H PRN pain #30 tabs 07/14/24 Rx mg tablet ondansetron 8 mg disintegrating 8 mg PO Q8H PRN nausea and 07/14/24 Rx tablet vomiting #10 tabs polyethylene glycol 3350 17 gram 17 g PO DAILY PRN constipation #14 07/14/24 Rx oral powder packet ea sennosides 8.6 mg-docusate sodium 1 tab-cap PO BID PRN constipation 07/14/24 Rx 50 mg tablet (Senna with Docusate #20 tabs Sodium) Patient hx anesthesia problems: none Family hx anesthesia problems: none Results Review: All pre-operative results and documents have been reviewed as part of the pre- operative evaluation. PENDING SALE TO [facility] Past Medical History Medical History Acute medial meniscus tear of right knee Adenomatous colon polyp Anemia Anxiety Anxiety and depression Arthritis Arthritis Atrial fibrillation Celiac disease Chondromalacia of right knee Diverticulosis GERD (gastroesophageal reflux disease) GERD (gastroesophageal reflux disease) Headache History of atrial fibrillation History of gastroesophageal reflux (GERD) History of hyperlipidemia Irritable bowel syndrome with constipation Migraine headache Neuropathy Surgical History Surgical History History of appendectomy History of delivery History of cholecystectomy History of cholecystectomy History of [place] fundoplication History of tubal ligation Hx of emergency section Family History Family History Mother Family history of elevated blood lipids Family history of arthritis Sibling Family history of arthritis Grandparent Cerebrovascular accident Family history of cardiovascular disease Hypertension Diabetes mellitus Other Heart disease Acute myocardial infarction Father Alcoholism Mother Alcoholism Depression Anxiety Grandparent Throat cancer Cerebrovascular accident Heart problem Social History Social History Smoking packs per day: 0.5 Smoking cigarettes per day: 10.0 Years smoked: 15 Smoking pack-years: 7.50 Smoking status: Former smoker Tobacco type: cigarettes and e-cigarettes/vaping Second hand tobacco smoke exposure: No Smoking end date: 07/07/02 Additional smoking assessment comments: Currently vapes. Alcohol intake: never Substance use: never Substance use type: marijuana Other substance usage details: Daily Last use: 05/21/20 Do You Feel Safe in your Home?: Yes Lack of Transportation: No Lack of Food: Never True Current Housing: I Have Housing Concerned About Future Housing: No Difficulty Paying Gas/Electric Bills: No Difficulty Paying for Meds: No Currently Unemployed: No Education: Decline to Answer Difficulty w/ Childcare or Family Care: No Living arrangements: with family Occupation/Education: other Additional occupation/education comments: disabled Gender identity (if verbalized by the patient): Female Sexual Orientation (if Verbalized by the Patient): Straight or Heterosexual Spiritual care concerns: No Anes - Eval Final PreProcedure Day of Procedure 07/14/24 09:12 Patient weight: normal Heart: regular rate and rhythm Lungs: clear to auscultation Airway: Mallampati scale class II Neurological: alert and oriented Last oral intake: >/= 8 hours ASA classification: III Emergent: no Anesthetic plan: proceed Anesthesia type and monitoring: general LMA and standard monitoring Results Review: All pre-operative results and documents have been reviewed as part of the pre- operative evaluation. Informed Consent: The patient's anesthetic plan and its attendant risks and benefits were discussed with the patient/family/POA. Questions were solicited and answers provided to the satisfaction of the patient/family/POA.
[2024-07-14] MEDS: ceFAZolin 2 GM/D5W 50 ML 2 GM/50 ML BAG IVPB (09:20)
--- NOTE | 2024-07-14 10:36 | P.OP_ITS ---
Procedure Note - Detailed Date of Procedure 07/14/24 Pre-op Diagnosis right knee pain,medial meniscus tear,chondromalcia Post-op Diagnosis Same Procedure Performed Right knee arthroscopy with partial medial meniscectomy, synovectomy cho ndroplasty medial femoral condyle and patellofemoral articulation. Surgeon Vivek Andersen MD Anesthesia General Indications 54-year-old woman sustained an injury to her right knee. Pain along the medial aspect swelling. MRI demonstrates medial meniscus tear and chondromalacia presents for operative treatment. Findings right knee arthroscopic findings: Bucket-handle tear of the medial meniscus with displacement into the intercondylar notch. mucoid degeneration of the body and anterior horn portion of the remaining medial meniscus. Large medial femoral condyle chondral defect and delamination involving the weight-bearing portion of the medial femoral condyle. Located more on the central portion of the medial femoral condyle 4 cm in length and 1 cm in with through the cartilage to the bone surface. Unstable cartilage surrounding. Grade 2 chondromalacia patellofemoral articulation. ACL and PCL intact. Lateral compartment and lateral meniscus intact. This severe synovitis anterior knee medial lateral g utter. Large medial and lateral synovial plica with Impingement. Description of Procedure Informed consent given by patient. Operative extremity marked in preoperative holding area. Patient received intravenous antibiotics. Patient brought to operating room and underwent general anesthetic by anesthesia team. Positioned supine on operating room table. Right leg placed into a posterior thigh leg granger. Foot of the table dropped to 90? and left leg padded out of the field. Time-out performed confirming patient, site of surgery and plan. Right knee prepped and draped in usual sterile surgical fashion using ChloraPrep skin solution. Standard arthroscopic portals made by using a 11 blade knife for the anterior lateral portal 1st. Capsule penetrated bluntly. Camera and inflow started. The below operative findings noted. Intra-articular visualization used to position the anterior medial portal using 22 gauge spinal needle. A 11 blade knife used for the skin and blunt penetration of the capsule. 4.7 millimeter arthroscopic shaver introduced and partial medial meniscectomy of the loose and torn portion performed. Edge of meniscus completed with arthroscopic Wand. Arthroscopic Wand used to perform chondroplasty of the patellofemoral articulation and the medial femoral condyle. Shaver reintroduced and a synovectomy performed of the anterior fat pad and extensive synovium as well as medial and lateral plica. Bleeding points coagulated with Wand. Knee inspected, no loose pieces noted. 1 liter of irrigant infused and suction out. Arthroscopic cannulas removed. Skin closed with 4 nylon interrupted suture. Local anesthetic with 0.25% Marcaine. Sterile dressing applied. Patient awoken from anesthesia, extubated and taken to recovery room in stable condition. All sponge needle and instrument counts correct at the end of the case. Implants None Estimated Blood Loss 5 Tourniquet Time Total Tourniquet Time: 0 Drains No Packing No Pathology None sent Complications None Condition Stable Disposition PACU [facility] Billing Surgery - Charge Forward: Surgery Billing ([id number], [id number])
[2024-07-14] MEDS: fentaNYL CITRATE INJ (*CRX) 100 MCG/2 ML VIAL 25 MCG IV PUSH ×3 (11:21→11:28)
== END 2024-07-14 13:00 | disposition home or self-care (01) ==
PROVIDERS: PCP Internal Medicine; Visit Provider Orthopaedic Surgery
PROC: (CPT 29870; principal; 2024-07-14 09:00)
DX: S83.211A Bucket-handle tear of medial meniscus, current injury, right knee, initial encounter (principal); M94.261 Chondromalacia, right knee; M65.861 Other synovitis and tenosynovitis, right lower leg; X58.XXXA Exposure to other specified factors, initial encounter; I48.91 Unspecified atrial fibrillation; K21.9 Gastro-esophageal reflux disease without esophagitis; F41.8 Other specified anxiety disorders; K58.1 Irritable bowel syndrome with constipation; F17.290 Nicotine dependence, other tobacco product, uncomplicated; F12.90 Cannabis use, unspecified, uncomplicated
CPT/HCPCS: 29881; 29876; A9270; J0461; J0690; J1100; J1596; J1885; J2003; J2250; J2405; J2704; J3010; J7120

== ENCOUNTER 2024-07-30 17:05 | Inpatient (IN) | payer MEDICARE, OTHER, SELFPAY ==
[2024-07-30] VITALS (9 sets, daily range): BP systolic 84–146; BP diastolic 41–64; PULSE 59–76; RESP 10–16; TEMP 36.6; O2SAT 94–100
--- NOTE | ~2024-07-30 | CT_ITS ---
EXAMINATION: CT abdomen pelvis w con DATE: 07/30/2024 22:50 INDICATION: Left lower quadrant abdominal pain. TECHNIQUE: Computed tomography (CT) of the abdomen and pelvis was performed with 100 mL Omnipaque 350 intravenous contrast. Automated exposure control and iterative reconstruction technique were employe d. The dose-length product was 313.15 mGy-cm. COMPARISON: CT abdomen and pelvis 05/19/2024 FINDINGS: The visualized portions of the lung bases are clear without pneumonia or pleural effusion. The heart size is normal. No pericardial effusion. There is a small sliding hiatal hernia. The liver and spleen are normal. There are changes of cholecystectomy. Pancreas divisum is noted. The adrenal g lands are normal. There are cysts in the kidneys measuring up to 12 mm on the right. There are no dil ated loops of bowel. Wall thickening of the descending colon. There are changes of appendectomy. Ther e are no pathologically enlarged lymph nodes. There is no free intraperitoneal fluid. There is mild l umbar spondylosis. Thoracolumbar dextroscoliosis is noted. IMPRESSION: 1. Wall thickening of the descending colon, which may be secondary to underdistention or colitis. Reviewed, dictated and finalized at location A. [employer] IMPRESSION: 1. Wall thickening of the descending colon, which may be secondary to underdist ention or colitis.
--- NOTE | ~2024-07-30 | XR_ITS ---
EXAMINATION: XR chest port-a-cath/central DATE: 07/31/2024 03:14 INDICATION: Central line placement. TECHNIQUE: A single frontal view of the chest was obtained. COMPARISON: Chest 2 views 11/19/2023 FINDINGS: There is no pneumonia, pleural effusion, or pneumothorax. The heart size is normal. There i s a left subclavian central venous catheter with tip at superior cavoatrial junction. Surgical clips in the right upper quadrant are likely from cholecystectomy. IMPRESSION: 1. Central line tip at the superior cavoatrial junction. Reviewed, dictated and finalized at location A. ITY ARBORIST
--- NOTE | 2024-07-30 20:09 | ECG_ITS ---
Test Date: 2024-07-30 20:23:34 Measurements Intervals [place] Rate: 57 P: 39 DC: 162 QRS: 26 QRSD: 86 T: 51 QT: 468 QTc: 458 Interpretive Statements SINUS BRADYCARDIA WITH NON-CONDUCTED ATRIAL PREMATURE COMPLEX BASELINE ARTIFACT- I, II, III, AVR, AVL, AVF, V1-V6 BORDERLINE ECG Compared to ECG 05/29/2024 14:39:30 HEART RATE HAS DECREASED Electronically Signed On 07-30-2024 21:58:26 DEMENTIA PROGRAM DIRECTOR by Cabrera Moya D.O.
--- NOTE | 2024-07-30 20:09 | PC.NURSE ---
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 Pt pointed to center of her chest. EKG order placed.
--- NOTE | 2024-07-30 20:22 | ED_ITS ---
HPI - Nausea/Vomiting/Diarrhea General Chief complaint: Nausea/Vomiting/Diarrhea Stated complaint: LLQ pain Time Seen by Provider: 07/30/24 20:14 History of Present Illness HPI Narrative: 54-year-old female with a past medical history significant for cyclic vomiting syndrome, intractable nausea vomiting, GERD, IBS, atrial fibrillation on Xarelto and rate control medications. Today patient presents to the emergency room with a chief complaint of left lower quadrant abdominal pain, nauseousness, vomiting and diarrhea. She states that she was otherwise in her normal state of health until this afternoon when all her symptoms started the same time. She has had similar presentations in the past. Endorses subjective fever and chills. No urinary complaints. No headache, vision change, shortness for breath. States she is allergic to Compazine and Reglan and Phenergan. Of note recently she had a medial meniscus repair with orthopedic surgery and has been recovering well from this according to her and no complaints in the knee today. Related Data Home Medications Medication Instructions Recorded Confirmed aluminum-mag hydroxide-simethicone 10 ml PO QID PRN Acid Reflux 05/28/20 07/31/24 400 mg-400 mg-40 mg/5 mL oral susp (Mylanta Maximum Strength) simethicone 125 mg chewable tablet 125 mg PO QID PRN Abdominal 05/28/20 07/31/24 (Gas-X Extra Strength) Discomfort apixaban 5 mg tablet (Eliquis) 5 mg PO BID 10/23/23 07/31/24 atorvastatin 40 mg tablet 40 mg PO QHS 10/23/23 07/31/24 famotidine 20 mg tablet 20 mg PO DAILY PRN Acid Reflux 10/23/23 07/31/24 metoprolol succinate 25 mg 25 mg PO DAILY 10/23/23 07/31/24 tablet,extended release 24 hr flecainide 100 mg tablet 100 mg PO Q12H 10/29/23 07/31/24 pantoprazole 40 mg tablet,delayed 40 mg PO BID 01/04/24 07/31/24 release buspirone 10 mg tablet 10 mg PO BID 07/07/24 07/31/24 dicyclomine 10 mg capsule 20 mg PO BID PRN cramping 07/31/24 07/31/24 Allergies Allergy/AdvReac Type Severity Reaction Status Date / Time prochlorperazine AdvReac Severe Confusion Verified 07/31/24 04:54 metoclopramide [From Reglan] AdvReac Intermediate anxiety Verified 07/31/24 04:54 azithromycin AdvReac Unknown STOMACH Verified 07/31/24 04:54 UPSET promethazine [From Phenergan] AdvReac Jittery Verified 07/31/24 04:54 Review of Systems Review of Systems: As reviewed above in HPI [facility] [place] Past Medical History Medical History (Updated 07/31/24 @ 06:46 by Frandy Orellana MD) Adenomatous colon polyp Anemia Anxiety and depression Arthritis Atrial fibrillation Celiac disease Chondromalacia of right knee Diverticulosis GERD (gastroesophageal reflux disease) History of atrial fibrillation History of gastroesophageal reflux (GERD) History of hyperlipidemia History of TIA (transient ischemic attack) Irritable bowel syndrome with constipation Migraine headache Neuropathy Surgical History Surgical History (Updated 07/31/24 @ 06:37 by Medina Rich DO) History of appendectomy History of delivery History of cholecystectomy History of colonoscopy with polypectomy (03/2021) And repeat colonoscopy 2022 History of [place] fundoplication History of tubal ligation Hx of emergency section Status post lateral meniscectomy of right knee (07/2024) Family History Family History Mother Family history of elevated blood lipids Family history of arthritis Sibling Family history of arthritis Grandparent Cerebrovascular accident Family history of cardiovascular disease Hypertension Diabetes mellitus Other Heart disease Acute myocardial infarction Father Alcoholism Mother Alcoholism Depression Anxiety Grandparent Throat cancer Cerebrovascular accident Heart problem Social History Social History (Updated 07/31/24 @ 06:11 by Medina Rich DO) Social History: She lives at home with her of 6 years. This is her 3rd marriage. She had 6 children. One son and 5 daughters. She smoked half pack of cigarettes per day since she was 14 years old but switched to vaping nicotine several years ago. She rarely drinks alcohol and only minute amounts. She uses marijuana daily. Code status: Full code (she would not want to be on the ventilator long-term or if she had no quality of life ) Surrogate decision maker: Smoking packs per day: 0.5 Smoking cigarettes per day: 10.0 Years smoked: 15 Smoking pack-years: 7.50 Smoking status: Former smoker Tobacco type: cigarettes and e-cigarettes/vaping Second hand tobacco smoke exposure: No Smoking end date: 07/07/02 Additional smoking assessment comments: Currently vapes. Alcohol intake: never Substance use: current Substance use type: marijuana Other substance usage details: Daily Last use: 07/30/24 Do You Feel Safe in your Home?: Yes Lack of Transportation: No Lack of Food: Never True Current Housing: Decline to Answer Concerned About Future Housing: Decline to Answer Difficulty Paying Gas/Electric Bills: Decline to Answer Difficulty Paying for Meds: Decline to Answer Currently Unemployed: Decline to Answer Education: Decline to Answer Difficulty w/ Childcare or Family Care: Decline to Answer Living arrangements: with family Occupation/Education: other Additional occupation/education comments: disabled Gender identity (if verbalized by the patient): Female Sexual Orientation (if Verbalized by the Patient): Straight or Heterosexual Spiritual care concerns: No Exam Narrative: GENERAL: Uncomfortable appearing and retching but not any acute distress, answers my questions appropriately, awake alert oriented. HEAD: [Normocephalic, atraumatic.] EYES: [PERRLA and EOMI.] ENT: Nares clear, no rhinorrhea or epistaxis. Mucous membranes moist. NECK: Supple. CHEST: [Clear to auscultation. No respiratory distress.] HEART: [Regular rate and rhythm]. No murmur heard. [Normal peripheral pulses.] ABDOMEN: [Soft, nondistended], [nontender], [No rigidity or guarding] EXTREMITIES: Normal range of motion. [No edema.] SKIN: Warm, dry, no rash. NEURO: [No focal deficits]. Alert and oriented [x3.] PSYCH: [Normal mood and affect.] Course Vital Signs Vital signs: Vital Signs Temperature 36.6 C 07/30/24 17:18 Pulse Rate 64 07/30/24 17:18 Respiratory Rate 14 07/30/24 17:18 Blood Pressure 112/64 07/30/24 17:18 Pulse Oximetry 100 07/30/24 17:18 Temperature 36.6 C 07/30/24 17:18 Pulse Rate 66 07/31/24 03:46 Respiratory Rate 16 07/31/24 03:46 Blood Pressure 102/53 L 07/31/24 03:45 Pulse Oximetry 100 07/31/24 03:46 Oxygen Delivery Room Air 07/31/24 04:30 Procedures Central Line Placement Left SC: Central Line Date: 07/31/24 Central Line Time: 02:30 Discussed w/ the patient/family/POA,the placement of a central venous catheter, including its clinical necessity/indication & associated potential risks, benifits and alternatives.: Yes The patient/family/POA understand(s) and acknowledge(s) the need to proceed with central venous catheter insertion as an important element of the patient's clinical management.: Yes Time Out Performed: Yes Patient Placed on Monitor/Pulse Ox: Yes Max. Sterile Barrier Technique: Caps, large sterile sheet and hand hygiene Central Line Prep: 2% chlorhexidine scrub and sterile drapes applied Technique: seldinger Local Anesthetic: lidocaine 1% Amount of anesthesia used (mL): 5 Ultrasound Used for Placement: No Central Line Lumen Inserted: triple Post Procedure: sutured in place, good blood return, all ports aspirated, flushed, capped and sterile dressing applied Post Procedure X-Ray: tip of catheter in good position and no pneumothorax seen Patient Tolerated Procedure: well and no complications Complications: none MDM - Nausea/Vomiting/Diarrhea MDM Narrative Medical decision making narrative: 54-year-old female with history of cyclic vomiting syndrome, GERD, IBS, atrial fibrillation on Xarelto. Today she presents to the emergency room with sudden-onset abdominal discomfort question left lower quadrant associated with nausea, vomiting, chills and fever. She is afebrile here, not any acute distress but is retching throughout the examination. Abdomen is soft nontender nondistended. Vital signs are reassuring without any fever, hypoxia, tachycar damon or blood pressure concerns. She has had similar presentations in the past. She endorses allergies to Compazine, Phenergan, promethazine as wanting only Zofran for nausea control. Patient has a history of cyclic vomiting syndrome and IBS with similar presentations in past. Differential does include recurrence of cyclic vomiting syndrome, gastroparesis, IBS flare, less likely intra-abdominal process but possible including diverticulitis, appendicitis, pancreatitis. Laboratory studies were obtained including a CBC, CMP, lipase, urinalysis, ekg. She was treated symptomatically with Zofran, morphine, lactated Ringer bolus. Will be reassessed frequently. Patient was treated recently with antibiotics during her orthopedic procedure which raises concern for potential C diff. C diff test was ordered. Patient was re-evaluated had improvement the pain was still retching and very nauseous and still having diarrhea. At this time she was given 2.5 mg of intravenous Haldol which resolved her nauseous and retching sensation. She felt significantly improved. She has a very significant leukocytosis of 25,000, anemia of 11.9 which is just around her baseline. No platelet elevations. Electrolyte panel within normal limits. No renal dysfunction. Glucose 154. No significant hepatic elevations, negative lipase. Urinalysis pending at this time. Straight catheterization ordered. I independently reviewed patient's CT images and I do appreciate significant evidence of colitis specially in the descending right-sided colon. CT scan read by [facility] confirms thickened descending colon concerning for acute colitis. This combined with her elevated white count and soft blood pressures on repeat evaluation of raises suspicion for sepsis. Blood cultures and lactic acid were drawn at this time and she was given additional fluid resuscitation and started on antibiotics including Rocephin and Flagyl to cover intra-abdominal process. Urinalysis pending and will be admitted shortly thereafter. Patient started having downward trending blood pressures here and reached 80 systolic at one point. This was despite adequate 30 cc/kg fluid resuscitation and presently being on antibiotics. We changed her antibiotics to include Zosyn at this time and a central line was placed into her left subclavian with norepinephrine ordered. I discussed the case with both the bog worker Dr. Rueda and the hospitalist Dr. Rich over the phone. We went over patient's imaging studies, laboratory assessments, leukocytosis and lactic elevations as well as her CT scan showing colitis with potential source of her septic shock. Patient was accepted to the intensive care unit at this time. Repeat lactic acid improved to 2.2 indicating adequate resuscitative efforts and is reassuring that her colitis is less likely ischemic in nature. Medical Records Attestation: I reviewed the patient's medical records. Lab Data Attestation: I reviewed the patient's lab results. 07/30/24 21:03 07/30/24 21:03 Labs: Lab Results 07/30/24 07/30/24 07/31/24 Range/Units 21:03 22:00 01:02 WBC 25.0 H (4.5-10.0) K/mm3 RBC 3.84 L (4.2-5.4) M/mm3 Hgb 11.9 L (12.0-15.0) g/dL Hct 36.4 L (37.0-47.0) % MCV 94.8 (80-100) fl MCH 31.0 (26-34) pg MCHC 32.7 (32-36) g/dl RDW 12.6 (11.5-14.5) % Plt Count 340 (150-375) k/mm3 MPV 10.5 H (7.4-10.4) fl Immature Gran % (Auto) Not Reportable Neut % (Auto) Not Reportable Lymph % (Auto) Not Reportable [place] % (Auto) Not Reportable Eos % (Auto) Not Reportable Baso % (Auto) Not Reportable Lymph # (Auto) Not Reportable [place] # (Auto) Not Reportable Eos # (Auto) Not Reportable Baso # (Auto) Not Reportable Abs Immat Gran (auto) Not Reportable Absolute Neuts (auto) Not Reportable Absolute Nucleated RBC Not Reportable Total Counted 100 Neutrophils % (Manual) 83 H (46-73) % Band Neutrophils % 6 (0-6) % Lymphocytes % (Manual) 4.0 L (18-44) % Monocytes % (Manual) 7 (3-9) % Nucleated RBC % Not Reportable Abs Neuts (Manual) 22.25 H (1.7-7.2) K/mm3 Abs Lymphs (Manual) 1.00 L (1.1-4.5) K/mm3 Abs Monocytes (Manual) 1.75 H (0.1-0.90) K/mm3 Platelet Estimate Adequate (Adequate) Schistocytes None seen Sodium 139 (137-145) mmol/L Potassium 3.7 (3.4-5.0) mmol/L Chloride 105 (98-107) mmol/L Carbon Dioxide 23 (22-30) mmol/L Anion Gap 11 (4-12) mmol/L BUN 14 D (7-17) mg/dL Creatinine 0.70 (0.7-1.0) mg/dL Estim Creat Clear Calc Not Reportable Estimated GFR > 60 (59 - ) Glucose 154 H (65-110) mg/dL Lactic Acid 14.3 H* (0.7-2.0) mmol/L Calcium 9.4 (8.4-10.2) mg/dL Total Bilirubin 0.8 (0.2-1.3) mg/dL AST 39 H (14-36) U/L ALT 28 (6-35) U/L Alkaline Phosphatase 87 (38-126) U/L Total Protein 8.0 (6.3-8.2) g/dL Albumin 4.7 (3.5-5.1) g/dL Lipase 210 (23-300) U/L Urine Color Yellow (Yellow) Urine Appearance Clear (Clear) Urine pH 8.0 (5.0-9.0) Ur Specific [place] > 1.045 H (1.001-1.035) Urine Protein Negative (Negative) mg/dL Urine Glucose (UA) Negative (Negative) mg/dL Urine Ketones Negative (Negative) mg/dL Ur Blood (Man) Negative (Negative) Urine Nitrate Negative (Negative) Urine Bilirubin Negative (Negative) Urine Urobilinogen 1.0 (<2.0) mg/dL Leukocyte Esterase Rfl Negative (Negative) NEHA/UL C. difficile (PCR) Negative (NEGATIVE) Influenza A (RT-PCR) Negative (Negative) Influenza B (RT-PCR) Negative (Negative) RSV (RT-PCR) Negative (Negative) SARS-CoV-2 RNA (RT-PCR) Negative (Negative) Imaging Data Attestation: I personally reviewed and interpreted this imaging study as follows: My impression: Inflammatory changes in the colon, no suspicious transition points or obvious bowel obstruction. No obvious perforation or abscess formation. Radiologist's impression: Stat read interpretation of colitis in the descending colon ECG Data EKG #1: Attestation: I personally reviewed and interpreted this ECG as follows: ECG completion date: 07/30/24 ECG completion time: 20:23 Prior ECG tracings: available for review Interpretation: Regular rate rhythm an axis, QTC normal at 458, QRS of 86 and normal, DE interval normal 162. No ST segment elevations, depressions or new inversions. Overall appears to be sinus bradycardia without any ectopy or blocks. Overall no significant interval changes compared to the morphology of previous EKGs on review of the EMR. Critical Care Time Critical Care Time Critical Care Time: Yes Total Critical Care Time: 80 Discharge Plan Discharge Clinical Impression: Septic shock, Colitis, Acidosis, lactic Patient Disposition: Still a Patient Condition: Serious Time of Disposition: 03:07
[2024-07-30] MEDS: MORPHINE SULFATE (*CRX) 4 MG/ML INJ IV PUSH (20:59)
[2024-07-30] MEDS: ONDANSETRON INJ 4 MG/2 ML VIAL IV PUSH (20:59)
[2024-07-30] MEDS: LACTATED RINGERS 1,000 ML 999 ML IV CONT (21:01)
[2024-07-30 21:16] LABS: Hematocrit 36.4 % (37.0-47.0); Hemoglobin 11.9 g/dL (12.0-15.0); Mean Corpuscular HGB Conc 32.7 g/dl (32-36); Mean Corpuscular Volume 94.8 fl (80-100); Mean Platelet Volume 10.5 fl (7.4-10.4); Platelet Count Result 340 k/mm3 (150-375); Red Blood Count 3.84 M/mm3 (4.2-5.4); Red Cell Distribution Width 12.6 % (11.5-14.5)
[2024-07-30 21:31] LABS: Alanine Aminotransferase 28 U/L (6-35); Albumin Level 4.7 g/dL (3.5-5.1); Alkaline Phosphatase 87 U/L (38-126); Anion Gap 11 mmol/L (4-12); Aspartate Amino Transferase 39 U/L (14-36); Bilirubin,Total 0.8 mg/dL (0.2-1.3); Blood Urea Nitrogen 14 mg/dL (7-17); Calcium 9.4 mg/dL (8.4-10.2); Carbon Dioxide 23 mmol/L (22-30); Chloride 105 mmol/L (98-107); Estimated Glomerular Filt Rate > 60; Glucose 154 mg/dL (65-110); Lipase 210 U/L (23-300); Potassium 3.7 mmol/L (3.4-5.0); Sodium 139 mmol/L (137-145)
[2024-07-30 21:53] LABS: Influenza A QL RT-PCR Negative (Negative); Influenza B QL RT-PCR Negative (Negative); RSV RNA, RT-PCR Negative (Negative); SARS-CoV-2 RNA PCR Negative (Negative)
[2024-07-30 22:10] LABS: Band Neutrophils Percent 6 % (0-6); Monocytes Absolute Manual 1.75 K/mm3 (0.1-0.90); Monocytes Percent Manual 7 % (3-9); Neutrophils Absolute Manual 22.25 K/mm3 (1.7-7.2); Neutrophils Percent Manual 83 % (46-73); Platelet Estimate Adequate (Adequate); Total Cells Counted 100
[2024-07-30 22:11] LABS: Schistocytes None Seen
[2024-07-30] MEDS: HALOPERIDOL LACTATE 5 MG/ML VIAL 2.5 MG IV PUSH (22:56)
[2024-07-30 23:17] LABS: Toxigenic C. Diff NEGATIVE (NEGATIVE)
[2024-07-31] VITALS (32 sets, daily range): BP systolic 87–120; BP diastolic 43–95; PULSE 60–93; RESP 10–21; TEMP 36.4–37.2; O2SAT 96–100; BMI 25.5
[2024-07-31] MEDS: LACTATED RINGERS 1,000 ML 999 ML IV CONT ×2 (00:37→02:08)
[2024-07-31 01:12] LABS: Add Urine Microscopic? NO; Appearance Urine Clear (Clear); Bilirubin Urine Negative (Negative); Blood Urine Negative (Negative); Color Urine Yellow (Yellow); Glucose Urine UA Negative (Negative); Ketones Urine Negative (Negative); Leukocyte Esterase Ur Negative LEU/UL (Negative); Nitrate Urine Negative (Negative); Protein Urine Negative (Negative); Specific Grav Ur > 1.045 (1.001-1.035)
[2024-07-31] MEDS: HALOPERIDOL LACTATE 5 MG/ML VIAL 2.5 MG IV PUSH (02:10)
[2024-07-31 02:16] LABS: Lactic Acid Reflex 14.3 mmol/L (0.7-2.0)
[2024-07-31] MEDS: metroNIDAZOLE 500 MG/ISO 100ML 500 MG/100 ML BAG 100 MG IVPB ×3 (02:18→21:28)
--- NOTE | 2024-07-31 02:54 | PC.NURSE ---
per edp dr. guy start norepi infusion when bp is less than 65.
[2024-07-31] MEDS: PIPERACILLIN/TAZ 4.5G/NS 100ML 4.5 GM/100 ML BAG IVPB (03:22)
[2024-07-31 04:08] LABS: Reflex Lactic Acid Yes or No Add Lactic
--- NOTE | 2024-07-31 04:08 | PC.NURSE ---
Report received from KIET Lambert in ED.
--- NOTE | 2024-07-31 04:30 | PC.NURSE ---
This patient, Sarahy Glil, was admitted to Intensive Care Unit-9. Patient/family oriented to hospital policies and general routines including ID bracelet, bed and alarms, visiting hours, pain management, procedures, bathroom and other care routines, personal items, smoking policy, room service/diet, and visiting hours. Information on how to activate the Rapid Response Team has been discussed. Patient/Family are encouraged to report perceived risks to care and to ask questions if they do not understand what they are told or what they should do.
[2024-07-31] MEDS: CENTRAL LINE FLUSH 10 ML IV PUSH ×3 (06:01→21:28)
--- NOTE | 2024-07-31 06:04 | PM.IMHP ---
H&P: HPI History of Present Illness Date/Time: 07/31/24 06:04 Chief Complaint: Abdominal pain, nausea and dry heaves, diarrhea Narrative: 54-year-old female with a past medical history of irritable bowel syndrome with constipation, cyclic vomiting, hiatal hernia with history of Gary fundoplication, atrial fibrillation on Xarelto and chronic back pain who presented to the ER with sudden onset of left lower abdominal pain associated with dry heaves on the evening of the . Symptoms started as a couple of hours prior to coming to the ER. She had associated diaphoresis and flushed sensation. She felt as if she may pass out. She denies any recent ill contacts or unusual food intake. She has not had any travel. She did have a recent meniscus repair 2 weeks ago as outpatient. She did have some preoperative antibiotics. The patient reports that symptoms started with the nausea and dry heaves. She does not vomit because of prior Gary fundoplication. Then she did have 1 formed bowel movement at home. The pain was so bad that she was doubled over and could not move her walk. She reported that the pain was not 11/10 in intensity. She was brought in by EMS and when she was in triage she had complete loss of bowel control with 2 episodes of mushy brown stool. She denies any hematochezia or melena. She denies dysuria changes in urinary frequency. Initially in the ER patient was hypotensive. She received greater than 30 mL/kilos bolus LR. She still had mildly low systolic blood pressures. She did not mention to the ER provider that she does tend to run with a little bit lower blood pressures. She states that she has the lower blood pressures due to being on metoprolol for her history of atrial fibrillation. Currently she is in sinus bradycardia. Review of Systems Review of Systems: 12 systems were reviewed with pertinent positives and negatives per HPI. Except as documented in the HPI, all other systems were reviewed and are negative. She reports chronic low back pain, frequent stress urinary incontinence, mild swelling of the right knee where she had a meniscus repair but no erythema or unexpected pain PMFSH Past Medical History Medical History (Updated 07/31/24 @ 06:52 by Medina Rich, ) Adenomatous colon polyp Anemia Anxiety and depression Arthritis Atrial fibrillation Celiac disease Chondromalacia of right knee Diverticulosis GERD (gastroesophageal reflux disease) History of atrial fibrillation History of gastroesophageal reflux (GERD) History of hyperlipidemia History of TIA (transient ischemic attack) Irritable bowel syndrome with constipation Migraine headache Neuropathy Surgical History Surgical History (Updated 07/31/24 @ 06:37 by Medina Rich DO) History of appendectomy History of delivery History of cholecystectomy History of colonoscopy with polypectomy (03/2021) And repeat colonoscopy 2022 History of Gary fundoplication History of tubal ligation Hx of emergency section Status post lateral meniscectomy of right knee (07/2024) Family History Family History Mother Family history of elevated blood lipids Family history of arthritis Sibling Family history of arthritis Grandparent Cerebrovascular accident Family history of cardiovascular disease Hypertension Diabetes mellitus Other Heart disease Acute myocardial infarction Father Alcoholism Mother Alcoholism Depression Anxiety Grandparent Throat cancer Cerebrovascular accident Heart problem Social History Social History (Updated 07/31/24 @ 06:11 by Medina Rich DO) Social History: She lives at home with her of 6 years. This is her 3rd marriage. She had 6 children. One son and 5 daughters. She smoked half pack of cigarettes per day since she was 14 years old but switched to vaping nicotine several years ago. She rarely drinks alcohol and only minute amounts. She uses marijuana daily. Code status: Full code (she would not want to be on the ventilator long-term or if she had no quality of life ) Surrogate decision maker: Smoking packs per day: 0.5 Smoking cigarettes per day: 10.0 Years smoked: 15 Smoking pack-years: 7.50 Smoking status: Former smoker Tobacco type: cigarettes and e-cigarettes/vaping Second hand tobacco smoke exposure: No Smoking end date: 07/07/02 Additional smoking assessment comments: Currently vapes. Alcohol intake: never Substance use: current Substance use type: marijuana Other substance usage details: Daily Last use: 07/30/24 Do You Feel Safe in your Home?: Yes Lack of Transportation: No Lack of Food: Never True Current Housing: Decline to Answer Concerned About Future Housing: Decline to Answer Difficulty Paying Gas/Electric Bills: Decline to Answer Difficulty Paying for Meds: Decline to Answer Currently Unemployed: Decline to Answer Education: Decline to Answer Difficulty w/ Childcare or Family Care: Decline to Answer Living arrangements: with family Occupation/Education: other Additional occupation/education comments: disabled Gender identity (if verbalized by the patient): Female Sexual Orientation (if Verbalized by the Patient): Straight or Heterosexual Spiritual care concerns: No Meds Home Medications and Allergies Home Medications Medication Instructions Recorded Confirmed Type aluminum-mag hydroxide-simethicone 10 ml PO QID PRN Acid Reflux 05/28/20 07/31/24 History 400 mg-400 mg-40 mg/5 mL oral susp (Mylanta Maximum Strength) simethicone 125 mg chewable tablet 125 mg PO QID PRN Abdominal 05/28/20 07/31/24 History (Gas-X Extra Strength) Discomfort acetaminophen 500 mg tablet 500 mg PO Q6H PRN pain #30 tabs 07/18/23 07/31/24 Rx ondansetron 4 mg disintegrating 4 mg PO Q8H PRN nausea and 07/18/23 07/31/24 Rx tablet vomiting #14 tabs meclizine 12.5 mg tablet 12.5 mg PO TID PRN dizziness #10 10/08/23 07/31/24 Rx tabs apixaban 5 mg tablet (Eliquis) 5 mg PO BID 10/23/23 07/31/24 History atorvastatin 40 mg tablet 40 mg PO QHS 10/23/23 07/31/24 History famotidine 20 mg tablet 20 mg PO DAILY PRN Acid Reflux 10/23/23 07/31/24 History metoprolol succinate 25 mg 25 mg PO DAILY 10/23/23 07/31/24 History tablet,extended release 24 hr flecainide 100 mg tablet 100 mg PO Q12H 10/29/23 07/31/24 History pantoprazole 40 mg tablet,delayed 40 mg PO BID 01/04/24 07/31/24 History release amitriptyline 10 mg tablet 10 mg PO QHS #30 tabs 07/06/24 07/31/24 Rx buspirone 10 mg tablet 10 mg PO BID 07/07/24 07/31/24 History ondansetron 8 mg disintegrating 8 mg PO Q8H PRN nausea and 07/14/24 07/31/24 Rx tablet vomiting #10 tabs dicyclomine 10 mg capsule 20 mg PO BID PRN cramping 07/31/24 07/31/24 History Allergies Allergy/AdvReac Type Severity Reaction Status Date / Time prochlorperazine AdvReac Severe Confusion Verified 07/31/24 04:54 metoclopramide [From Reglan] AdvReac Intermediate anxiety Verified 07/31/24 04:54 azithromycin AdvReac Unknown STOMACH Verified 07/31/24 04:54 UPSET promethazine [From Phenergan] AdvReac Jittery Verified 07/31/24 04:54 Vital Signs Vital Signs - 24 hr 07/30/24 17:18 07/30/24 21:08 07/30/24 21:07 Temperature 97.9 F Pulse Rate 64 71 59 L Respiratory Rate 14 13 16 Blood Pressure 112/64 146/61 H 146/61 H Pulse Oximetry 100 100 100 07/30/24 21:45 07/30/24 22:59 07/30/24 23:00 Temperature Pulse Rate 73 75 68 Respiratory Rate 15 10 L 12 Blood Pressure 90/52 L 98/56 L Pulse Oximetry 100 100 100 07/30/24 23:15 07/30/24 23:30 07/30/24 23:45 Temperature Pulse Rate 71 76 76 Respiratory Rate 13 14 13 Blood Pressure 90/43 L 89/48 L 84/41 L Pulse Oximetry 97 94 96 07/31/24 00:00 07/31/24 00:15 07/31/24 00:31 Temperature Pulse Rate 73 73 72 Respiratory Rate 16 11 L 16 Blood Pressure 98/53 L 108/55 L 95/43 L Pulse Oximetry 96 98 97 07/31/24 00:45 07/31/24 02:02 07/31/24 02:10 Temperature Pulse Rate 79 75 79 Respiratory Rate 13 12 15 Blood Pressure 112/62 87/52 L 96/48 L Pulse Oximetry 100 99 99 07/31/24 02:23 07/31/24 02:15 07/31/24 02:30 Temperature Pulse Rate 80 93 75 Respiratory Rate 10 L 15 15 Blood Pressure 103/53 L 103/53 L 96/51 L Pulse Oximetry 100 100 97 07/31/24 02:31 07/31/24 02:45 07/31/24 02:53 Temperature Pulse Rate 71 87 86 Respiratory Rate 16 11 L 18 Blood Pressure 106/57 L Pulse Oximetry 97 07/31/24 03:00 07/31/24 03:01 07/31/24 03:15 Temperature Pulse Rate 79 84 64 Respiratory Rate 21 H 15 14 Blood Pressure 107/59 L Pulse Oximetry 97 96 98 07/31/24 03:16 07/31/24 03:30 07/31/24 03:31 Temperature Pulse Rate 70 74 67 Respiratory Rate 18 16 16 Blood Pressure 100/47 L 99/52 L Pulse Oximetry 98 98 99 07/31/24 03:45 07/31/24 03:46 Temperature Pulse Rate 73 66 Respiratory Rate 17 16 Blood Pressure 102/53 L Pulse Oximetry 100 100 Exam Narrative: Weight 67 kg BMI 25.6 Const: Other: Appears much older than stated age, no acute distress, normal body habitus HENMT: Other: Mucous membranes are dry, no oral pharyngeal erythema, edentulous in upper and lower jaw, head is normocephalic atraumatic Eyes: Other: No conjunctival pallor, no scleral icterus, pupils are equal and reactive Neck: Other: No JVD, no thyromegaly, supple Resp: Other: Decreased breath sounds bilaterally, no increased work of breathing Cardio: Other: Regular rate, regular rhythm, 2+ bilateral radial pedal pulses GI: Other: Mildly tender in left lower quadrant, nondistended, normoactive bowel sounds, no organomegaly Skin: Other: Mild pallor, non jaundice, no petechia Neuro: Other: Alert oriented x4, speech is clear, no facial asymmetry although exam is somewhat limited as patient does not have dentures in place, moves all extremities equally, no localizing deficits noted during the course of conversation Extrem: Other: Mild edema to the right knee with observed arthroscopic incisions sites that are clean dry and intact Psych: Other: Appropriate mood and affect, pleasant and cooperative, judgment and insight intact H&P: Results Labs Labs: Laboratory Tests 07/30/24 21:03 07/30/24 21:03 07/30/24 07/30/24 07/31/24 21:03 22:00 01:02 WBC 25.0 H RBC 3.84 L Hgb 11.9 L Hct 36.4 L MCV 94.8 MCH 31.0 MCHC 32.7 RDW 12.6 Plt Count 340 MPV 10.5 H Immature Gran % (Auto) Not Reportable Neut % (Auto) Not Reportable Lymph % (Auto) Not Reportable [place] % (Auto) Not Reportable Eos % (Auto) Not Reportable Baso % (Auto) Not Reportable Lymph # (Auto) Not Reportable [place] # (Auto) Not Reportable Eos # (Auto) Not Reportable Baso # (Auto) Not Reportable Abs Immat Gran (auto) Not Reportable Absolute Neuts (auto) Not Reportable Absolute Nucleated RBC Not Reportable Total Counted 100 Neutrophils % (Manual) 83 H Band Neutrophils % 6 Lymphocytes % (Manual) 4.0 L Monocytes % (Manual) 7 Nucleated RBC % Not Reportable Abs Neuts (Manual) 22.25 H Abs Lymphs (Manual) 1.00 L Abs Monocytes (Manual) 1.75 H Platelet Estimate Adequate Schistocytes None seen Sodium 139 Potassium 3.7 Chloride 105 Carbon Dioxide 23 Anion Gap 11 BUN 14 D Creatinine 0.70 Estim Creat Clear Calc Not Reportable Estimated GFR > 60 Glucose 154 H Lactic Acid 14.3 H* Calcium 9.4 Total Bilirubin 0.8 AST 39 H ALT 28 Alkaline Phosphatase 87 Total Protein 8.0 Albumin 4.7 Lipase 210 Urine Color Yellow Urine Appearance Clear Urine pH 8.0 Ur Specific [place] > 1.045 H Urine Protein Negative Urine Glucose (UA) Negative Urine Ketones Negative Ur Blood (Man) Negative Urine Nitrate Negative Urine Bilirubin Negative Urine Urobilinogen 1.0 Leukocyte Esterase Rfl Negative Nasal MRSA (PCR) C. difficile (PCR) Negative Influenza A (RT-PCR) Negative Influenza B (RT-PCR) Negative RSV (RT-PCR) Negative SARS-CoV-2 RNA (RT-PCR) Negative 07/31/24 07/31/24 05:31 05:50 WBC RBC Hgb Hct MCV MCH MCHC RDW Plt Count MPV Immature Gran % (Auto) Neut % (Auto) Lymph % (Auto) [place] % (Auto) Eos % (Auto) Baso % (Auto) Lymph # (Auto) [place] # (Auto) Eos # (Auto) Baso # (Auto) Abs Immat Gran (auto) Absolute Neuts (auto) Absolute Nucleated RBC Total Counted Neutrophils % (Manual) Band Neutrophils % Lymphocytes % (Manual) Monocytes % (Manual) Nucleated RBC % Abs Neuts (Manual) Abs Lymphs (Manual) Abs Monocytes (Manual) Platelet Estimate Schistocytes Sodium Potassium Chloride Carbon Dioxide Anion Gap BUN Creatinine Estim Creat Clear Calc Estimated GFR Glucose Lactic Acid 2.2 H Calcium Total Bilirubin AST ALT Alkaline Phosphatase Total Protein Albumin Lipase Urine Color Urine Appearance Urine pH Ur Specific [place] Urine Protein Urine Glucose (UA) Urine Ketones Ur Blood (Man) Urine Nitrate Urine Bilirubin Urine Urobilinogen Leukocyte Esterase Rfl Nasal MRSA (PCR) Pending C. difficile (PCR) Influenza A (RT-PCR) Influenza B (RT-PCR) RSV (RT-PCR) SARS-CoV-2 RNA (RT-PCR) Impressions Chest X-Ray 07/31/24 06:08 (personally reviewed and interpreted) IMPRESSION: 1. Central line tip at the superior cavoatrial junction. EKG personally reviewed interpreted demonstrated sinus bradycardia Assessment and Plan Assessment and plan (1) Irritable bowel syndrome with constipation: Code(s): K58.1 - Irritable bowel syndrome with constipation Status: Acute (2) Colitis: Code(s): K52.9 - Noninfective gastroenteritis and colitis, unspecified Status: Acute (3) Nausea vomiting and diarrhea: Code(s): R11.2 - Nausea with vomiting, unspecified; R19.7 - Diarrhea, unspecified Status: Acute (4) Hypotension due to hypovolemia: Code(s): E86.1 - Hypovolemia Status: Acute (5) Atrial fibrillation: Qualifiers: Atrial fibrillation type: paroxysmal Qualified Code(s): I48.0 - Paroxysmal atrial fibrillation Code(s): I48.91 - Unspecified atrial fibrillation Status: Acute (6) Cyclic vomiting syndrome: Code(s): R11.15 - Cyclical vomiting syndrome unrelated to migraine Status: Acute Plan Patient has acute colitis and presented with sepsis, hypotension and hypovolemia. Hypovolemia more likely due to hypovolemia and less likely due to septic shock. Patient likely had a more exaggerated response to to hypovolemia because of her chronic baseline borderline hypotension Although patient did have severe lactic acidosis her lactic acid level corrected rapidly with IV fluid administration in is near normal. Patient received 1 dose of Zosyn, Rocephin and Flagyl in the ER. Will continue Rocephin and Flagyl per antibiotic stewardship guidelines. Patient's C diff PCR was negative in the ER. If patient has recurrent diarrhea will send for stool culture. Will continue maintenance IV fluids. Patient does have history of paroxysmal atrial fibrillation but currently is in normal sinus rhythm with occasional intervals of sinus bradycardia. Will continue to monitor patient on telemetry. Patient will be transferred from the ICU to [facility] with telemetry. However will hold patient's metoprolol given her borderline low blood pressures. Will continue home flecainide and Eliquis. The patient does have a history of cyclic vomiting. She reports she has not had a major exacerbation of her cyclic vomiting in a couple of years. She is allergic to multiple anti emetics and sounds like she actually has dystonic reaction to a couple of the antiemetics. If vomiting resumed patient may benefit from additional dosing of Haldol as she had good response to this in the ER. The patient already has outpatient follow-up with GI for pH testing in her esophagus and possible esophageal dilatation in August. Will continue home Pepcid and Protonix. Will also continue home Gas-X as needed. Quality VTE Prophylaxis VTE prophylaxis: pharmacologic ordered (Continue home Eliquis) Hospitalist MIPS Advance Care Plan I have confirmed that the patient's Advanced Care Plan is present, code status is documented, or surrogate decision maker is listed in patient medical record.: Yes Medication Reconciliation I have utilized all available resources to obtain, update and review the patients current medications (includes all prescriptions, OTC, herbals, cannabis, and nutritional supplements).: Yes
[2024-07-31 06:11] LABS: Lactic Acid 2.2 mmol/L (0.7-2.0)
--- NOTE | 2024-07-31 07:44 | P.PNIM_ITS ---
Subjective Date/time seen: 07/31/24 07:44 Interval history: Objective Data Vital Signs Vital Signs: Vital Signs - 24 hr 07/30/24 17:18 07/30/24 21:08 07/30/24 21:07 Temperature 97.9 F Pulse Rate 64 71 59 L Respiratory Rate 14 13 16 Blood Pressure 112/64 146/61 H 146/61 H Pulse Oximetry 100 100 100 Oxygen Delivery 07/30/24 21:45 07/30/24 22:59 07/30/24 23:00 Temperature Pulse Rate 73 75 68 Respiratory Rate 15 10 L 12 Blood Pressure 90/52 L 98/56 L Pulse Oximetry 100 100 100 Oxygen Delivery 07/30/24 23:15 07/30/24 23:30 07/30/24 23:45 Temperature Pulse Rate 71 76 76 Respiratory Rate 13 14 13 Blood Pressure 90/43 L 89/48 L 84/41 L Pulse Oximetry 97 94 96 Oxygen Delivery 07/31/24 00:00 07/31/24 00:15 07/31/24 00:31 Temperature Pulse Rate 73 73 72 Respiratory Rate 16 11 L 16 Blood Pressure 98/53 L 108/55 L 95/43 L Pulse Oximetry 96 98 97 Oxygen Delivery 07/31/24 00:45 07/31/24 02:02 07/31/24 02:10 Temperature Pulse Rate 79 75 79 Respiratory Rate 13 12 15 Blood Pressure 112/62 87/52 L 96/48 L Pulse Oximetry 100 99 99 Oxygen Delivery 07/31/24 02:23 07/31/24 02:15 07/31/24 02:30 Temperature Pulse Rate 80 93 75 Respiratory Rate 10 L 15 15 Blood Pressure 103/53 L 103/53 L 96/51 L Pulse Oximetry 100 100 97 Oxygen Delivery 07/31/24 02:31 07/31/24 02:45 07/31/24 02:53 Temperature Pulse Rate 71 87 86 Respiratory Rate 16 11 L 18 Blood Pressure 106/57 L Pulse Oximetry 97 Oxygen Delivery 07/31/24 03:00 07/31/24 03:01 07/31/24 03:15 Temperature Pulse Rate 79 84 64 Respiratory Rate 21 H 15 14 Blood Pressure 107/59 L Pulse Oximetry 97 96 98 Oxygen Delivery 07/31/24 03:16 07/31/24 03:30 07/31/24 03:31 Temperature Pulse Rate 70 74 67 Respiratory Rate 18 16 16 Blood Pressure 100/47 L 99/52 L Pulse Oximetry 98 98 99 Oxygen Delivery 07/31/24 03:45 07/31/24 03:46 07/31/24 04:30 Temperature Pulse Rate 73 66 Respiratory Rate 17 16 Blood Pressure 102/53 L Pulse Oximetry 100 100 Oxygen Delivery Room Air 07/31/24 06:00 07/31/24 04:30 Temperature 98.9 F Pulse Rate 73 79 Respiratory Rate 12 Blood Pressure 101/57 L Pulse Oximetry 98 Oxygen Delivery Intake/Output Intake/Output: Intake & Output 07/28/24 07/29/24 07/30/24 07/31/24 23:59 23:59 23:59 23:59 Intake Total 1000.0 2250 Output Total 450 Balance 1000.0 1800 Meds/Results Medications: Active Medications Generic Name Dose Route Start Last Admin Trade Name Freq PRN Reason Stop Dose Admin Acetaminophen 500 mg 07/31/24 06:44 Acetaminophen 500 Mg Tablet PO Q6H PRN pain 1-3 or fever Al Hydrox/Mg Hydrox/Simethicone 10 ml 07/31/24 06:59 Mag Hydrox/Al Hydrox/Simeth 30 Ml Udc PO QID PRN Acid Reflux Amitriptyline HCl 10 mg 07/31/24 21:00 Amitriptyline Hcl 10 Mg Tablet PO QHS [facility] Apixaban 5 mg 07/31/24 09:00 Apixaban 5 Mg Tablet PO Q12HR [facility] Atorvastatin Calcium 40 mg 07/31/24 21:00 Atorvastatin 40 Mg Tablet PO QHS [facility] Buspirone HCl 10 mg 07/31/24 09:00 Buspirone Hcl 10 Mg Tablet PO BID [facility] Dicyclomine HCl 20 mg 07/31/24 06:44 Dicyclomine Hcl 10 Mg Capsule PO BID PRN cramping Famotidine 20 mg 07/31/24 06:44 Famotidine 20 Mg Tablet PO DAILY PRN Acid Reflux Flecainide Acetate 100 mg 07/31/24 09:00 Flecainide Acetate 100 Mg Tablet PO Q12HR [facility] Ceftriaxone Sodium 1 gm in 50 mls @ 100 mls/hr 07/31/24 22:00 Rocephin 1 Gm/Ns 50 Ml IVPB Q24H [facility] Metronidazole 500 mg in 100 mls @ 100 mls/hr 07/31/24 10:00 Flagyl 500 Mg/Iso Soln 100 Ml IVPB Q8HR [facility] Sodium Chloride 1,000 mls @ 100 mls/hr 07/31/24 07:00 Normal Saline Iv IV CONT .Q10H [facility] Sodium Chloride 1,000 mls @ 100 mls/hr 07/31/24 07:18 Normal Saline Iv IV CONT .Q10H [facility] Meclizine HCl 12.5 mg 07/31/24 06:44 Meclizine Hcl 12.5 Mg Tablet PO TID PRN dizziness Morphine Sulfate 2 mg 07/31/24 03:01 Morphine Sulfate (*Crx) 2 Mg/Ml Inj IV PUSH Q2H PRN Pain Rated 7-10 Ondansetron HCl 4 mg 07/31/24 03:01 Ondansetron Inj 4 Mg/2 Ml Vial IV PUSH Q4H PRN Nausea Pantoprazole Sodium 40 mg 07/31/24 09:00 Pantoprazole 40 Mg Tablet PO Q12HR [facility] Simethicone 125 mg 07/31/24 06:44 Simethicone 125 Mg Chew Tab PO QID PRN Abdominal Discomfort Sodium Chloride 10 ml 07/31/24 06:00 07/31/24 06:01 Central Line Flush IV PUSH 10 ml Q8HR [facility]ON Administration Sodium Chloride 20 ml 07/31/24 04:21 Central Line Flush IV PUSH PRN PRN after blood draws Radiology Results: ITS Impressions Chest X-Ray 07/31/24 06:08 IMPRESSION: 1. Central line tip at the superior cavoatrial junction. Labs Labs: Laboratory Results - last 24 hr 07/30/24 07/30/24 07/31/24 21:03 22:00 01:02 WBC 25.0 H RBC 3.84 L Hgb 11.9 L Hct 36.4 L MCV 94.8 MCH 31.0 MCHC 32.7 RDW 12.6 Plt Count 340 MPV 10.5 H Immature Gran % (Auto) Not Reportable Neut % (Auto) Not Reportable Lymph % (Auto) Not Reportable [place] % (Auto) Not Reportable Eos % (Auto) Not Reportable Baso % (Auto) Not Reportable Lymph # (Auto) Not Reportable [place] # (Auto) Not Reportable Eos # (Auto) Not Reportable Baso # (Auto) Not Reportable Abs Immat Gran (auto) Not Reportable Absolute Neuts (auto) Not Reportable Absolute Nucleated RBC Not Reportable Total Counted 100 Neutrophils % (Manual) 83 H Band Neutrophils % 6 Lymphocytes % (Manual) 4.0 L Monocytes % (Manual) 7 Nucleated RBC % Not Reportable Abs Neuts (Manual) 22.25 H Abs Lymphs (Manual) 1.00 L Abs Monocytes (Manual) 1.75 H Platelet Estimate Adequate Schistocytes None seen Sodium 139 Potassium 3.7 Chloride 105 Carbon Dioxide 23 Anion Gap 11 BUN 14 D Creatinine 0.70 Estim Creat Clear Calc Not Reportable Estimated GFR > 60 Glucose 154 H Lactic Acid 14.3 H* Calcium 9.4 Total Bilirubin 0.8 AST 39 H ALT 28 Alkaline Phosphatase 87 Total Protein 8.0 Albumin 4.7 Lipase 210 Urine Color Yellow Urine Appearance Clear Urine pH 8.0 Ur Specific [place] > 1.045 H Urine Protein Negative Urine Glucose (UA) Negative Urine Ketones Negative Ur Blood (Man) Negative Urine Nitrate Negative Urine Bilirubin Negative Urine Urobilinogen 1.0 Leukocyte Esterase Rfl Negative C. difficile (PCR) Negative Influenza A (RT-PCR) Negative Influenza B (RT-PCR) Negative RSV (RT-PCR) Negative SARS-CoV-2 RNA (RT-PCR) Negative 07/31/24 05:50 WBC RBC Hgb Hct MCV MCH MCHC RDW Plt Count MPV Immature Gran % (Auto) Neut % (Auto) Lymph % (Auto) [place] % (Auto) Eos % (Auto) Baso % (Auto) Lymph # (Auto) [place] # (Auto) Eos # (Auto) Baso # (Auto) Abs Immat Gran (auto) Absolute Neuts (auto) Absolute Nucleated RBC Total Counted Neutrophils % (Manual) Band Neutrophils % Lymphocytes % (Manual) Monocytes % (Manual) Nucleated RBC % Abs Neuts (Manual) Abs Lymphs (Manual) Abs Monocytes (Manual) Platelet Estimate Schistocytes Sodium Potassium Chloride Carbon Dioxide Anion Gap BUN Creatinine Estim Creat Clear Calc Estimated GFR Glucose Lactic Acid 2.2 H Calcium Total Bilirubin AST ALT Alkaline Phosphatase Total Protein Albumin Lipase Urine Color Urine Appearance Urine pH Ur Specific [place] Urine Protein Urine Glucose (UA) Urine Ketones Ur Blood (Man) Urine Nitrate Urine Bilirubin Urine Urobilinogen Leukocyte Esterase Rfl C. difficile (PCR) Influenza A (RT-PCR) Influenza B (RT-PCR) RSV (RT-PCR) SARS-CoV-2 RNA (RT-PCR)
[2024-07-31 07:45] LABS: MRSA (PCR) DETECTED (NOT DETECTE)
--- NOTE | 2024-07-31 07:48 | P.PNCROSS_ITS ---
Event Note Event Note Event Note: Interval history: This is a 54-year-old female who presented to the hospital today with abdominal pain, nausea, dry heaves, diarrhea. Workup in the hospital included abdomen/pelvis CT which shown. A central line was placed due to hypotension. Chest x-ray which showed central line tip at the superior cavoatrial junction. Initial labs shown a white blood cell count of 25.0, RBC 3.84, hemoglobin 11.9, lactic acid 14.3> 2.2. UA showed urine specific gravity of greater than 1.045, otherwise unremarkable. MRSA was positive. C diff was negative. Rest the doug panel was negative for influenza a and B, RSV, COVID. Blood cultures were obtained and are pending. Patient was given 3 L of IV fluids, Haldol, morphine, Zofran, started on Zosyn and Flagyl while in the ED. she was originally hypotensive and was sent to the ICU for Levophed infusion however her blood pressure improved with just the fluids alone and has been moved out of the ICU. Of note patient sees GI on an outpatient basis at [facility] and is planning for EGD with esophageal dilation next month. Subjective: Patient denies any nausea, vomiting, diarrhea, chest pain, shortness a breath, fever, chills currently. Patient endorses epigastric abdominal pain and acid reflux which is chronic for her. Labs and imaging reviewed. Exam: General: In no acute distress, well nourished Head: atraumatic, no encephalopathy Eyes: EOMI, PERRLA, sclera clear ENT: moist mucous membranes, nasal passages clear Neck: supple, no JVD, no adenopathy, trachea midline Cardiac: Normal S1 and S2. No murmur, gallops or friction rubs, peripheral pulses intact. Respiratory: Lungs clear to auscultation, no adventitious lung sounds Gastrointestinal: soft, non-distended, non-tender, normoactive bowel sounds. : voiding without difficulty. Extremities: moves all extremities well, no edema, good ROM, strength 5/5 Skin: clean, dry, intact. No wounds or lesions. Neuro: Alert and oriented x4, cranial nerves intact, no neuro deficits. Psych: normal mood, normal affect, interactive Plan: * Continue Rocephin and Flagyl * Continue cardiac monitoring * Stool culture pending * C diff was negative * MRSA was positive * White blood cell count 25.0, lactic acid 14.3 now down to 2.2 after 3 L IV fluids * Move out of ICU to regular med surge floor with tele
[2024-07-31] MEDS: busPIRone HCL 10 MG TABLET PO ×2 (08:48→17:06)
[2024-07-31] MEDS: PANTOPRAZOLE 40 MG TABLET PO ×2 (08:48→20:42)
[2024-07-31] MEDS: SODIUM CHLORIDE 0.9% IV 1,000 ML 100 ML IV CONT ×2 (08:48→20:40)
[2024-07-31] MEDS: FLECAINIDE ACETATE 100 MG TABLET PO ×2 (08:48→20:42)
[2024-07-31] MEDS: APIXABAN 5 MG TABLET PO ×2 (08:48→20:43)
[2024-07-31] MEDS: ACETAMINOPHEN 500 MG TABLET PO ×2 (08:55→20:44)
--- NOTE | 2024-07-31 13:13 | PC.NURSE ---
This patient, Sarahy Gill, was transferred to [facility] on 07/31/24 at 1230. Personal belongings sent with patient. Report given to Philomena SANTA. Appropriate documentation sent with patient.
--- NOTE | 2024-07-31 13:42 | PC.NURSE ---
This patient, Sarahy Gill, was received from ICU on 07/31/24 at 1145. Patient/family oriented to unit policies and routines. report received from Julia SANTA
[2024-07-31] MEDS: AMITRIPTYLINE HCL 10 MG TABLET PO (20:42)
[2024-07-31] MEDS: ATORVASTATIN 40 MG TABLET PO (20:42)
[2024-08-01] VITALS (7 sets, daily range): BP systolic 112–131; BP diastolic 65–68; PULSE 42–78; RESP 16–18; TEMP 36.1–36.6; O2SAT 97–98
[2024-08-01] MEDS: metroNIDAZOLE 500 MG/ISO 100ML 500 MG/100 ML BAG 100 MG IVPB (05:58)
[2024-08-01] MEDS: CENTRAL LINE FLUSH 10 ML IV PUSH ×2 (06:10→13:58)
[2024-08-01] MEDS: PANTOPRAZOLE 40 MG TABLET PO (08:17)
[2024-08-01] MEDS: busPIRone HCL 10 MG TABLET PO (08:17)
[2024-08-01] MEDS: APIXABAN 5 MG TABLET PO (08:17)
[2024-08-01] MEDS: FLECAINIDE ACETATE 100 MG TABLET PO (08:17)
[2024-08-01] MEDS: SODIUM CHLORIDE 0.9% IV 1,000 ML 100 ML IV CONT (08:25)
[2024-08-01 11:09] LABS: Basophils Percent Auto 0.3 % (0.2-1.2); Eosinophils Percent Auto 0.2 % (0-4.4); Hematocrit 29.6 % (37.0-47.0); Hemoglobin 9.6 g/dL (12.0-15.0); Immature Granulocyte Absolute 0.05 K/mm3 (0.00-0.031); Immature Granulocyte Percent A 0.5 % (0-0.5); Lymphocytes Absolute Auto 1.62 K/mm3 (0.9-3.2); Lymphocytes Percent Auto 15.1 % (18.3-44.2); Mean Corpuscular HGB Conc 32.4 g/dl (32-36); Mean Corpuscular Hemoglobin 31.5 pg (26-34); Mean Platelet Volume 10.1 fl (7.4-10.4); Monocytes Absolute Auto 1.1 K/mm3 (0.1-0.6); Monocytes Percent Auto 10.6 % (2.6-8.5); Neutrophils Absolute Auto 7.9 K/mm3 (1.3-6.7); Neutrophils Percent Auto 73.3 % (45.5-73.1); Platelet Count Result 234 k/mm3 (150-375); Red Blood Count 3.05 M/mm3 (4.2-5.4); Red Cell Distribution Width 13.1 % (11.5-14.5); White Blood Count 10.7 K/mm3 (4.5-10.0)
[2024-08-01 11:24] LABS: Alanine Aminotransferase 51 U/L (6-35); Albumin Level 3.6 g/dL (3.5-5.1); Alkaline Phosphatase 75 U/L (38-126); Anion Gap 1 mmol/L (4-12); Aspartate Amino Transferase 54 U/L (14-36); Bilirubin,Total 0.4 mg/dL (0.2-1.3); Blood Urea Nitrogen 8 mg/dL (7-17); Calcium 8.3 mg/dL (8.4-10.2); Carbon Dioxide 28 mmol/L (22-30); Chloride 110 mmol/L (98-107); Estimated CRCL calculation 77 ml/min; Estimated Glomerular Filt Rate > 60; Glucose 98 mg/dL (65-110); Magnesium 1.9 mg/dL (1.6-2.3); Potassium 3.3 mmol/L (3.4-5.0); Sodium 139 mmol/L (137-145)
[2024-08-01] MEDS: POTASSIUM CHLORIDE 20 MEQ ER TABLET 40 MEQ PO (12:04)
--- NOTE | 2024-08-01 13:48 | PM.DS ---
DS: Admitting Diagnosis Discharge Date 08/01/24 Admitting Diagnosis Irritable bowel syndrome with constipation Colitis Nausea vomiting and diarrhea Hypotension due to hypovolemia Atrial fibrillation Cyclic vomiting syndrome DS: Discharge Diagnosis Discharge Diagnosis (1) Irritable bowel syndrome with constipation: Code(s): K58.1 - Irritable bowel syndrome with constipation Status: Acute (2) Colitis: Code(s): K52.9 - Noninfective gastroenteritis and colitis, unspecified Status: Acute (3) Nausea vomiting and diarrhea: Code(s): R11.2 - Nausea with vomiting, unspecified; R19.7 - Diarrhea, unspecified Status: Acute (4) Hypotension due to hypovolemia: Code(s): E86.1 - Hypovolemia Status: Acute (5) Atrial fibrillation: Qualifiers: Atrial fibrillation type: paroxysmal Qualified Code(s): I48.0 - Paroxysmal atrial fibrillation Code(s): I48.91 - Unspecified atrial fibrillation Status: Acute (6) Cyclic vomiting syndrome: Code(s): R11.15 - Cyclical vomiting syndrome unrelated to migraine Status: Acute DS: Summary Hospital Course Reason for hospitalization: Irritable bowel syndrome with constipation Colitis Nausea vomiting and diarrhea Hypotension due to hypovolemia Atrial fibrillation Cyclic vomiting syndrome Hospital Course: This is a 54-year-old female who presented to the hospital today with abdominal pain, nausea, dry heaves, diarrhea. Workup in the hospital included abdomen/pelvis CT which shown wall thickening of the descending colon secondary to under distention or colitis. A central line was placed due to hypotension. Chest x-ray which showed central line tip at the superior cavoatrial junction. Initial labs shown a white blood cell count of 25.0, RBC 3.84, hemoglobin 11.9, lactic acid 14.3> 2.2. UA showed urine specific gravity of greater than 1.045, otherwise unremarkable. MRSA was positive. C diff was negative. Rest the doug panel was negative for influenza a and B, RSV, COVID. Blood cultures were obtained and are pending. Patient was given 3 L of IV fluids, Haldol, morphine, Zofran, started on Zosyn and Flagyl while in the ED. she was originally hypotensive and was sent to the ICU for Levophed infusion however her blood pressure improved with just the fluids alone and has been moved out of the ICU. Of note patient sees GI on an outpatient basis at [place] and is planning for EGD with esophageal dilation next month. Patient denies any new complaints today. She is alert and oriented x3, VSS, currently on room air. She is stable for discharge at this time. She will need to finish antibiotics and then follow up with her PCP in 1 week. Final diagnosis: Colitis, IBS, dehydration Status at Discharge Cognitive/behavioral status at discharge: Alert oriented x4 Functional status at discharge: independent ambulation Overall status at discharge: patient is progressing back to baseline Time Spent with Patient Time attestation: Total time spent providing and/or coordinating discharge services: Exam Narrative: General: In no acute distress, well nourished Cardiac: Normal S1 and S2. No murmur, gallops or friction rubs, peripheral pulses intact. Respiratory: Lungs clear to auscultation, no adventitious lung sounds Gastrointestinal: soft, non-distended, non-tender, normoactive bowel sounds. : voiding without difficulty. Neuro: Alert and oriented x4 DS: Data Data Completed and Pending Completed studies during hospitalization: Abdomen/pelvis CT Chest x-ray Pending studies at discharge: Blood cultures Stool culture Labs on day of discharge: Labs from last 24 hours 08/01/24 10:54 WBC 10.7 H RBC 3.05 L Hgb 9.6 L Hct 29.6 L MCV 97.0 MCH 31.5 MCHC 32.4 RDW 13.1 Plt Count 234 MPV 10.1 Immature Gran % (Auto) 0.5 Neut % (Auto) 73.3 H Lymph % (Auto) 15.1 L Kershaw % (Auto) 10.6 H Eos % (Auto) 0.2 Baso % (Auto) 0.3 Lymph # (Auto) 1.62 Kershaw # (Auto) 1.1 H Eos # (Auto) 0.0 Baso # (Auto) 0.0 Abs Immat Gran (auto) 0.05 H Absolute Neuts (auto) 7.9 H Absolute Nucleated RBC 0.000 Nucleated RBC % 0.0 Sodium 139 Potassium 3.3 L Chloride 110 H Carbon Dioxide 28 Anion Gap 1 L BUN 8 D Creatinine 0.60 L Estim Creat Clear Calc 77 Estimated GFR > 60 Glucose 98 Calcium 8.3 L Magnesium 1.9 Total Bilirubin 0.4 AST 54 H ALT 51 H Alkaline Phosphatase 75 Total Protein 6.0 L Albumin 3.6 Preliminary micro results at discharge 07/31/24 01:02 Blood Culture - Preliminary Blood 07/31/24 01:02 Blood Culture - Preliminary Blood Procedures/Treatments: None Discharge Plan Discharge Attending physician on discharge: Eber Moore Consulting providers: Tino Rueda Discharging Clinician: Lashae Hall Anticipated Discharge Date/Time: 08/01/24 11:24 Patient Disposition: Home, Self-Care Activity: as tolerated Diet: as tolerated Discharge Instructions: if initial of your antibiotic as directed even if your feeling better follow-up with your primary care physician in 1 week stay hydrated Patient Instructions: Antibiotic Form, Ciprofloxacin (By mouth), Metronidazole (By mouth), Apixaban (By mouth), MRSA (Methicillin-Resistant Staphylococcus Aureus) (DC), Colitis (ED) Patient Language: Azerbaijani Stand Alone Forms: General Discharge Information Follow-up/Referrals: Mandeep Pennington, [Primary Care Provider] - 1 Week Discharge Medications: New metronidazole 500 mg Tablet 500 mg PO Q8HR Qty: 27 0RF ciprofloxacin HCl 500 mg Tablet 500 mg PO Q12HR Qty: 18 0RF Continued metoprolol succinate 25 mg tablet extended release 24 hr 25 mg PO DAILY atorvastatin 40 mg tablet 40 mg PO QHS famotidine 20 mg tablet 20 mg PO DAILY PRN (Reason: Acid Reflux) Eliquis 5 mg tablet 5 mg PO BID flecainide 100 mg tablet 100 mg PO Q12H amitriptyline 10 mg tablet 10 mg PO QHS Qty: 30 2RF pantoprazole 40 mg tablet,delayed release (DR/EC) 40 mg PO BID buspirone 10 mg tablet 10 mg PO BID ondansetron 8 mg tablet,disintegrating 8 mg PO Q8H PRN (Reason: nausea and vomiting) Qty: 10 1RF dicyclomine 10 mg capsule 20 mg PO BID PRN (Reason: cramping) simethicone [Gas-X Extra Strength] 125 mg Tablet,Chewable 125 mg PO QID PRN (Reason: Abdominal Discomfort) Patient Comments: Patient states that she takes one between meals. alum-mag hydroxide-simeth [Mylanta Maximum Strength] 400-400-40 mg/5 mL Suspension 10 ml PO QID PRN (Reason: Acid Reflux) Patient Comments: Patient states she takes in between meals and before bed. acetaminophen 500 mg tablet 500 mg PO Q6H PRN (Reason: pain) Qty: 30 0RF ondansetron 4 mg tablet,disintegrating 4 mg PO Q8H PRN (Reason: nausea and vomiting) Qty: 14 0RF meclizine 12.5 mg tablet 12.5 mg PO TID PRN (Reason: dizziness) Qty: 10 0RF Date of admission: 07/31/24 03:01 Primary Care Provider: Mandeep Pennington Admitting Provider: Medina Rich Attending physician on admission: Lashae Hall Condition: Improved Quality VTE Prophylaxis VTE prophylaxis: pharmacologic ordered (Continue home Eliquis) Hospitalist MIPS Heart Failure (Exclusion) Patient has history of Heart Transplant or Left Ventricular Assistive Device?: No IF YES, STOP HERE Heart Failure (Qualifier) Patient has current or prior documentation of LVEF less than or equal to 40%, or mod/servere depressed LVSF?: No IF NO, STOP HERE
[2024-08-01] MEDS: metroNIDAZOLE 500 MG TABLET PO (13:58)
== END 2024-08-01 15:35 | disposition home or self-care (01) | DRG 392 ==
LOC: ANHED 20:27 → ANHICU 07-31 03:38 → ANH2MED 07-31 12:32
PROVIDERS: Emergency Medicine; Admitting Provider Internal Medicine; Emergency Provider Student in an Organized Health Care Education/Training Program; PCP Internal Medicine; Visit Provider Nurse Practitioner Acute Care
DX: K52.9 Noninfective gastroenteritis and colitis, unspecified (principal); I48.20 Chronic atrial fibrillation, unspecified; I95.9 Hypotension, unspecified; E86.1 Hypovolemia; K21.9 Gastro-esophageal reflux disease without esophagitis; K90.0 Celiac disease; K57.30 Diverticulosis of large intestine without perforation or abscess without bleeding; K44.9 Diaphragmatic hernia without obstruction or gangrene; E78.5 Hyperlipidemia, unspecified; M19.90 Unspecified osteoarthritis, unspecified site; R11.15 Cyclical vomiting syndrome unrelated to migraine; G62.9 Polyneuropathy, unspecified; F12.90 Cannabis use, unspecified, uncomplicated; F41.9 Anxiety disorder, unspecified; F32.A Depression, unspecified; Z79.01 Long term (current) use of anticoagulants; Z20.822 Contact with and (suspected) exposure to COVID-19; Z86.73 Personal history of transient ischemic attack (TIA), and cerebral infarction without residual deficits; Z86.0101 Personal history of adenomatous and serrated colon polyps; Z22.322 Carrier or suspected carrier of Methicillin resistant Staphylococcus aureus
CPT/HCPCS: 36415; 36556; 74177; 80053; 81003; 83605; 83690; 83735; 85025; 87040; 87045; 87427; 87449; 87493; 87637; 87641; 93005; 96361; 96365; 96367; 96375; 96376; 99291; A9270; C1751; J0696; J1630; J1836; J2270; J2405; J2543; J7030; J7120; Q9967

== ENCOUNTER 2024-08-08 09:49 | Outpatient (CLI) | payer OTHER, MEDICARE, SELFPAY ==
[2024-08-08 19:36] LABS: Basophils Absolute Auto 0.1 K/mm3 (0.0-0.1); Basophils Percent Auto 0.7 % (0.2-1.2); Eosinophils Absolute Auto 0.2 K/mm3 (0-0.3); Eosinophils Percent Auto 2.6 % (0-4.4); Hematocrit 38.4 % (37.0-47.0); Hemoglobin 12.2 g/dL (12.0-15.0); Immature Granulocyte Absolute 0.01 K/mm3 (0.00-0.031); Immature Granulocyte Percent A 0.1 % (0-0.5); Lymphocytes Absolute Auto 2.07 K/mm3 (0.9-3.2); Lymphocytes Percent Auto 30.1 % (18.3-44.2); Mean Corpuscular HGB Conc 31.8 g/dl (32-36); Mean Corpuscular Volume 97.5 fl (80-100); Mean Platelet Volume 10.4 fl (7.4-10.4); Monocytes Absolute Auto 0.8 K/mm3 (0.1-0.6); Monocytes Percent Auto 10.9 % (2.6-8.5); Neutrophils Absolute Auto 3.8 K/mm3 (1.3-6.7); Neutrophils Percent Auto 55.6 % (45.5-73.1); Platelet Count Result 384 k/mm3 (150-375); Red Blood Count 3.94 M/mm3 (4.2-5.4); Red Cell Distribution Width 12.9 % (11.5-14.5); White Blood Count 6.9 K/mm3 (4.5-10.0)
[2024-08-08 20:34] LABS: Alanine Aminotransferase 45 U/L (6-35); Albumin Level 4.6 g/dL (3.5-5.1); Alkaline Phosphatase 72 U/L (38-126); Anion Gap 4 mmol/L (4-12); Aspartate Amino Transferase 50 U/L (14-36); Bilirubin,Total 0.5 mg/dL (0.2-1.3); Blood Urea Nitrogen 5 mg/dL (7-17); Calcium 9.6 mg/dL (8.4-10.2); Carbon Dioxide 33 mmol/L (22-30); Chloride 105 mmol/L (98-107); Estimated Glomerular Filt Rate > 60; Glucose 92 mg/dL (65-110); Magnesium 2.3 mg/dL (1.6-2.3); Potassium 4.2 mmol/L (3.4-5.0); Sodium 142 mmol/L (137-145)
[2024-08-08 21:35] LABS: Folic Acid > 20.0 ng/mL (2.76->20); Vitamin B12 > 1000.0 pg/mL (239-931)
== END 2024-08-08 09:50 | disposition home or self-care (01) ==
LOC: ANHGOSHLAB 09:50
PROVIDERS: PCP Internal Medicine; Visit Provider Internal Medicine
DX: E87.20 Acidosis, unspecified (principal); D64.9 Anemia, unspecified; R11.2 Nausea with vomiting, unspecified; R74.8 Abnormal levels of other serum enzymes
CPT/HCPCS: 36415; 80053; 82607; 82728; 82746; 83735; 85025

== ENCOUNTER 2024-08-12 16:15 | Outpatient (CLI) | payer OTHER, MEDICARE, SELFPAY ==
[2024-08-12 17:39] LABS: Toxigenic C. Diff NEGATIVE (NEGATIVE)
--- OUTSIDE RECORDS SUMMARY | 2024-08-16 04:29 | XMS_ITS | Encounter Summary ---
Author Organization [facility] Care Team Providers Care Electrician Elevator Maintenance Name Role Phone Parmjit Dai MD Primary Care Provider [phone] Jazmine Kulkarni MD Unavailable + [phone] Encounter Details Date Type Department Care Team (Latest Contact Info) Description 09/01/2023 Travel Social History Tobacco Use Types Packs/Day Years Used Date Smoking Tobacco: Former Cigarettes 0.5 10 1 990 - 2000 Smokeless Tobacco: Never Comments Unknown Sex and Gender Information Value Date Recorded Sex Assigned at Not on file Legal Sex Female 1:04 PM CDT Gender Identity Not on file Sexual Orientation Not on file documented as of this encounter Plan of Treatment Not on file documented as of this encounter Visit Diagnoses Not on filedocumented in this encounter Care Teams Electrician Elevator Maintenance Relationship Specialty Start Date End Date Parmjit Dai MD [address] [place] [address] [address] [place] [address] PCP - General Family Medicine 05/21/22 Jazmine Kulkarni MD [address] [place] [address] [address] [place] [address] Family Medicine 05/21/22 documented as of this encounter
--- OUTSIDE RECORDS SUMMARY | 2024-08-16 04:29 | XMS_ITS | Encounter Summary ---
Author Organization [facility] Care Team Providers Care Utility Assembler Name Role Phone Parmjit Dai MD Primary Care Provider [phone] Jazmine Kulkarni MD Unavailable + [phone] Encounter Details Date Type Department Care Team (Latest Contact Info) Description 08/26/2023 Travel Social History Tobacco Use Types Packs/Day Years Used Date Smoking Tobacco: Former Cigarettes 0.5 10 1 990 - 1999 Smokeless Tobacco: Never Comments Unknown Sex and Gender Information Value Date Recorded Sex Assigned at Not on file Legal Sex Female 1:04 PM CDT Gender Identity Not on file Sexual Orientation Not on file documented as of this encounter Plan of Treatment Not on file documented as of this encounter Visit Diagnoses Not on filedocumented in this encounter Care Teams Utility Assembler Relationship Specialty Start Date End Date Parmjit Dai MD [address] [place] [address] [address] [place] [address] PCP - General Family Medicine 05/21/22 Jazmine Kulkarni MD [address] [place] [address] [address] [place] [address] Family Medicine 05/21/22 documented as of this encounter
--- OUTSIDE RECORDS SUMMARY | 2024-08-16 04:29 | XMS_ITS | Encounter Summary ---
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 Role Phone Mandeep Pennington DO Primary Care Provider [phone] Reason for Visit * Reason Comments Follow-up Polyarthralgia Encounter Details Date Type Department Care Team (Late st Contact Info) Description 06/30/2024 9:20 AM CDT Office Visit [facility] Medical [facility] - Rheumatology [address], [address] [place] [address] Rolando Castro DO [address] [place] [address] Fibromyalgia syndrome (Primary Dx); Rheumatoid factor positive; Primary osteoarthritis of both first carpometacarpal joints Social History Tobacco Use Types Packs/Day Years Used Date Smoking Tobacco: Never Smokeless Tobacco: Never Alcohol Use Standard Drinks/Week Comments Not Currently 0 (1 standard drink = 0.6 oz pur e alcohol) Sex and Gender Information Value Date Recorded Sex Assigned at Not on file Gender Identity Not on file Sexual Orientation Not on file documented as of this encounter Last Filed Vital Signs Vital Sign Reading Time Taken Comments Blood Pressure 92/60 06/30/2024 9:18 AM CDT Pulse 61 06/30/2024 9:18 AM CDT Temperature 36.7 ??C (98 ??F) 06/30/2024 9:18 AM CDT Respiratory Rate 16 06/30/2024 9:18 AM CDT Oxygen Saturation 98% 06/30/2024 9:18 AM CDT Inhaled Oxygen Concentration - - Weight 65.3 kg (144 lb) 06/30/2024 9:18 AM CDT Height 162.6 cm (5' 4 ) 06/30/2024 9:18 AM CDT Body Mass Index 24.72 06/30/2024 9:18 AM CDT documented in this encounter Patient Instructions * Patient Instructions* Rolando Castro - 06/30/2024 9:51 AM CDT ICD-10-CM 1. Fibromyalgia syndrome M79.7 2. Rheumatoid factor positive R76.8 3. Primary osteoarthritis of both first carpometacarpal joints M18.0 Fibromyalgia syndrome (Primary) Assessment & Plan: Multiple tender points identified that might explain both joint pain, burning upper back pain and hand/finger numbness/tingling (reports negative NCV testing). I discussed the approach to the clinical diagnosis of a fibromyalgia syndrome as a cause for chronic musculoskeletal pain. I do not provide long-term care for the treatment of fibromyalgia and I have suggested that at thispoint it is not necessary to add any additional medications to possibly relieve symptoms related tothis non-inflammatory hypersensitivity pain disorder. Sarahy Gill was provided additional written information regarding fibromyalgia for further educational information. Fibromyalgia is a painful condition that is not completely understood by medical experts. The causeof fibromyalgia is not known. A person may feel tired and ache all over. It causes tender spots on the body that hurt only when pressed upon. A patient may have trouble sleeping, as well as other symptoms. These problems can upset work and home life. Symptoms tend to come and go, although they may never go away completely. Fibromyalgia does not harm the muscles, joints or organs or cause any permanent deformity or disability in the body. Fibromyalgia syndrome is characterized by generalized noninflammatory pain and is associated with long-standing pain that may come and go and be variable or at time persistently contant. The pain may be located in the soft tissues including tendons or muscle s or joints. The pain can occur in any of the extremities and also be felt along the spine or torso. This is the reason some people feel that they have arthritis. Other unusual symptoms that may suggest an underlying neurologic disorder have also been described in patients with fibromyalgia including numbness and tingling type sensations and shooting pains . Patients often describe fatigue and may awaken with non restorative sleep quality. The condition can occur in men or women in any age butis most common in women routine the ages of 20 in 50. There is no specific test used that can confirm the diagnosis of fibromyalgia and is considered a diagnosis of exclusion where by other conditions need to be excluded and this may or may not require additional test to be performed. The current nature of fibromyalgia seems to suggest that this syndrome represents a disorder of increased sensitivity in pain perception or so-called central pain amplification. Unfortunately, the exact cause of this disorder still remains elusive and unknown and limits the treatment to symptom relief without any known cure at this time. Rheumatoid factor positive Comments: No identificaton on exam or additional lab testing (anti-CCP negative, normal ESR/CRP) or xrays to suggest rheumatoid arthritis diagnosis by diagnostic criteria Primary osteoarthritis of both first carpometacarpal joints documented in this encounter Progress Notes * Rolando Castro DO - 06/30/2024 9:20 AM CDT Images from the original note were not included. RHEUMATOLOGY ESTABLISHED FOLLOW-UP OFFICE ENCOUNTER NOTE 06/30/2024 REFERRING PHYSICIAN/PROVIDER: Mandeep Pennington DO [address] [place] [address] PRIMARY CARE PHYSICIAN /PROVIDER: Mandeep Pennington DO [address] [facility] [address] INDICATION FOR RHEUMATOLOGIC FOLLOW-UP CARE: Chief Complaint Patient presents with Follow-up Polyarthralgia HISTORY OF PRESENTING ILLNESS: Sarahy Gill is a 54 year old female initially seen in [facility]ology on 05/30/2024 for evaluation of progressively worsening polyarthralgi involving the hands, radial and ulnar wrists (worse with certain movements), shoulders (described as a burning sensation), upper back pain on the left, back, left hip and bilateral foot pain (contributing to difficulty walking) developing over the preceding 12 months and the identification of a positive rheumatoid factor at 56.8 IU per mL (normal less than 12) but without any examination findings confirmatory of an inflammatory arthropathies including rheumatoid arthritis but with a clinical suspicion of a fibromyalgia syndrome returns to review results of additional laboratory testing and imaging. Bilateral hand radiographs identified osteoarthritis with significant change localized to the basilar 1st CMC articulations. Bilateral foot radiographs unremarkable. Sedimentation rate and C-reactive protein both within normal range.Anti CCP antibody negative, negative hepatitis-C antibody, and negative QuantiFERON TB gold has checked for further evaluation regarding the presence of a positive rheumatoid factor of uncertain clinical significance. Past rheumatologic history: Sarahy Gill describes a component of morning stiffness upon awakening in the morning with her hands feeling tight but had been experiencing increasing foot pain withinactivity as well and more recently had experienced acute right knee pain described as though her joint had ???popped out of place?? and a loud cracking sensation was awaiting follow-up with an reproduction specialist and was using a right knee Tyron wrap. She did indicate a history of atrial fibrillation on long-term apixaban systemic anticoagulation (avoids the use of NSAIDs) and also had been previous diagnosed with irritable bowel syndrome (prescribed buspirone, amitriptyline and dicyclomine). Outside records review: Records received from referring office [facility]ello[facility] [address] [place] [address] include a single chart note dated 04/01/2024 indicating the patient had presented with bilateralhand pain for 6+ months described as feeling ???achy?? and some numbness/tingling in the fingers (p rimarily the tips of the fingers) and feeling more weakness in her hands as well with difficulty opening jars. Laboratory testing collected 05/12/2024 included detection of a positive rheumatoid factor at 56.8 IU/mL with normal less than 12 and a negative NITIN screen. REVIEW OF SYSTEMS: ROS See pertinent positive and/or negative in HPI PAST MEDICAL HISTORY: Past Medical History: Diagnosis Date Anxiety disorder IBS (irritable bowel syndrome) Major depressive disorder, single episode OA (osteoarthritis) Paroxysmal atrial fibrillation (HCC) PAST SURGICAL HISTORY: Past Surgical History: Procedure Laterality Date APPENDECTOMY, LAPAROSCOPIC 08/2023 Hernia Repair 2013 hiatal FAMILY HISTORY: No family history on file. Allergies Allergen Reactions Azithromycin Other and GI Discomfort Abdominal pain Metoclopramide Other Doesn't like the way it makes her body feel. Had TIA after trying. Doesn't like the way it makes her body feel. Prochlorperazine Other and Unknown made me feel weird, odd also agitation Promethazine Other Made her feel spaced out Social History Socioeconomic History Marital status: Spouse name: Not on file Number of children: Not on file Years of education: Not on file Highest education level: Not on file Occupational History Not on file Tobacco Use Smoking status: Never Smokeless tobacco: Never Vaping Use Vaping status: Every Day Substance and Sexual Activity Alcohol use: Not Currently Drug use: Yes Frequency: 7.0 times per week Types: Marijuana Sexual activity: Not on file Other Topics Concern Not on file Social History Narrative Not on file Social Determinants of Health Financial Resource Strain: Low Risk (09/09/2023) Received from [facility], [facility] Overall Financial Resource Strain (CARDIA) Difficulty of Paying Living Expenses: Not hard at all Food Insecurity: No Food Insecurity (09/09/2023) Received from [facility], [facility] Hunger Vital Sign Worried About Running Out of Food in the Last Year: Never true Ran Out of Food in the Last Year: Never true Transportation Needs: No Transportation Needs (09/09/2023) Received from [facility], [facility] PRAPARE - Transportation Lack of Transportation (Medical): No Lack of Transportation (Non-Medical): No Stress: Not on file Housing Stability: Low Risk (09/09/2023) Received from [facility], [facility] Housing Stability Vital Sign Unable to Pay for Housing in the Last Year: No Number of Places Lived in the Last Year: 1 Unstable Housing in the Last Year: No There is no immunization history on file for this patient. Current Outpatient Medications Medication Sig Dispense Refill Acetaminophen Extra Strength 500 MG TABS Take 1 (one) tablet by mouth every 6 hours as needed For pain. amitriptyline (Elavil) 10 MG tablet Take 1 (one) tablet by mouth apixaban (Eliquis) 5 MG tablet Take 1 (one) tablet by mouth 2 times daily atorvastatin (Lipitor) 40 MG tablet Take 1 (one) tablet by mouth at bedtime busPIRone (Buspar) 10 MG tablet 1 (one) tablet dicyclomine (Bentyl) 20 MG tablet Take 1 (one) tablet by mouth famotidine (Pepcid) 20 MG tablet Take 1 (one) tablet by mouth once daily as needed flecainide (Tambocor) 100 MG tablet TAKE 1 TABLET BY MOUTH TWICE DAILY. START TAKING SATURDAY 07/07 meclizine (Antivert) 12.5 MG tablet Take 1 (one) tablet by mouth 3 times daily as needed (Patient not taking: Reported on 06/30/2024) metoprolol succinate XL 24hr (Toprol XL) 25 MG tablet Take 1 (one) tablet by mouth once daily ondansetron, disintegrating, (Zofran ODT) 4 MG tablet DISSOLVE 1 TABLET ON THE TONGUE EVERY 8 HOURSAS NEEDED FOR NAUSEA OR VOMITING pantoprazole EC (Protonix) 40 MG tablet Take 1 (one) tablet by mouth 2 times daily SUMAtriptan Succinate 6 MG/0.5ML (Patient not taking: Reported on 06/30/2024) No current facility-administered medications for this visit. VITALS: Wt Readings from Last 3 Encounters: 06/30/24 65.3 kg (144 lb) 05/30/24 63.5 kg (140 lb) Temp Readings from Last 3 Encounters: 06/30/24 98 ??F (36.7 ??C) 05/30/24 98 ??F (36.7 ??C) BP Readings from Last 3 Encounters: 06/30/24 92/60 05/30/24 98/60 Pulse Readings from Last 3 Encounters: 06/30/24 61 05/30/24 56 APPEARANCE: Unaccompanied. MUSCULOSKELETAL: No active synovitis identified. Multiple soft tissue tender points consistent witha pattern of allodynia including >11/18 positive fibromyalgia tender points noted. PSYCH: Alert. Appropriate. LABS: No results for input(s): WBC , RBC , HGB , HCT , MCV , MCHC , PLTCOUNT , NEUTPCT , LYMPHPCT , MONOCYTPCT , EOSINPCT , BASOPHILPCT , GRANSIMMPCT , NEUTABS , LYMPHABS , MONOCYTABS , EOSINABS , BASOABS , IMMGRANSABS in the last 28362 hours. No results for input(s): SODIUM , POTASSIUM , CHLORIDE , CO2 , BUN , CREATININE , GLUCOSE , CALCIUM , ALBUMIN , ALKPHOS , ALT , AST , TBIL , TPROT , EGFR in the last 03047 hours. Recent Labs Component Name 06/06/24 1430 CRP <1 Recent Labs Component Name 06/06/24 1430 SEDRATE 2 Component Latest Ref Rng 06/06/2024 2:30 PM QuantiFERON-TB Gold Plus Negative Negative QuantiFERON Criteria Comment QuantiFERON TB1 Ag Value IU/mL 0.00 QuantiFERON TB2 Ag Value IU/mL 0.00 QuantiFERON Nil Value IU/mL 0.00 QuantiFERON Mitogen Value IU/mL >10.00 CCP Antibodies IgG/IgA 0 - 19 units 8 Hepatitis C Antibody Non Reactive Non Reactive No results for input(s): RAQNT in the last 69433 hours. No results for input(s): CCPIGG in the last 04410 hours. No results for input(s): NITIN , ANATITER in the last 36761 hours. No results for input(s): DNAABDS in the last 12242 hours. No results for input(s): C3 in the last 24800 hours., No results for input(s): C4 in the last 42903 hours. No results for input(s): SMAB , SMRNPAB , SSAAB , SSBAB , PFH57EN in the last 14978 hours. No results for input(s): CK in the last 97754 hours. No results for input(s): COLORUA , CLARITYUA , SPECGRAVUA , PHUA , PROTEINUA , BLOODUA , LEUKOCYTEUA , NITRITEUA , GLUCOSEUA , KETONEUA , BILIRUBINUA , UROBILINUA , REDSUBUA , WBCUAAUTO , RBCUAAUTO , EPITHUAAUTO , BACTUAAUTO , YEASTUAAUTO , SPERMUAAUTO , CASTUAAUTO , CRYSUAAUTO , MUCUSUAAUTO in the last 07143 hours. No results for input(s): [id number] in the last 15213 hours. IMAGING: XR Foot Bilat 3Vw or More Narrative: PROCEDURE: XR FOOT BILAT 3VW OR MORE DATE/TIME OF EXAM: 06/06/2024 2:07 PM CLINICAL INFORMATION: None relevant/not provided if blank. Indication: M25.50: Pain in unspecified joint R76.8: Other specified abnormal immunological findings in serum Additional History: COMPARISON: None. FINDINGS: There is no fracture. Alignment is normal. Joint spaces are normal. There is no appreciable soft tissue abnormality. Impression: IMPRESSION: Normal feet radiographs. > Interpreting Provider: Natalia Hamm MD on 06/06/2024 3:01 PM XR Hand Bilat 3Vw or More Narrative: PROCEDURE: XR HAND BILAT 3VW OR MORE DATE/TIME OF EXAM: 06/06/2024 2:07 PM CLINICAL INFORMATION: None relevant/not provided if blank. Indication: M25.50: Pain in unspecified joint R76.8: Other specified abnormal immunological findings in serum Additional History: COMPARISON: None. FINDINGS: There is no fracture. Alignment is normal. There is arthritis throughout the right hand and wrist, most severe at the bases of the thumb and triscaphe joint. There is no identifiable erosion. There is no appreciable soft tissue abnormality. Impression: IMPRESSION: Right hand and wrist osteoarthritis. > Interpreting Provider: Natalia Hamm MD on 06/06/2024 3:00 PM ASSESSMENT/PLAN: ICD-10-CM 1. Fibromyalgia syndrome M79.7 2. Rheumatoid factor positive R76.8 3. Primary osteoarthritis of both first carpometacarpal joints M18.0 Fibromyalgia syndrome (Primary) Assessment & Plan: Multiple tender points identified that might explain both joint pain, burning upper back pain and hand/finger numbness/tingling (reports negative NCV testing). I discussed the approach to the clinical diagnosis of a fibromyalgia syndrome as a cause for chronic musculoskeletal pain. I do not provide long-term care for the treatment of fibromyalgia and I have suggested that at thispoint it is not necessary to add any additional medications to possibly relieve symptoms related tothis non-inflammatory hypersensitivity pain disorder. Sarahy Theresa Gill was provided additional written information regarding fibromyalgia for further educational information. Fibromyalgia is a painful condition that is not completely understood by medical experts. The causeof fibromyalgia is not known. A person may feel tired and ache all over. It causes tender spots on the body that hurt only when pressed upon. A patient may have trouble sleeping, as well as other symptoms. These problems can upset work and home life. Symptoms tend to come and go, although they may never go away completely. Fibromyalgia does not harm the muscles, joints or organs or cause any permanent deformity or disability in the body. Fibromyalgia syndrome is characterized by generalized noninflammatory pain and is associated with long-standing pain that may come and go and be variable or at time persistently contant. The pain may be located in the soft tissues including tendons or muscle s or joints. The pain can occur in any of the extremities and also be felt along the spine or torso. This is the reason some people feel that they have arthritis. Other unusual symptoms that may suggest an underlying neurologic disorder have also been described in patients with fibromyalgia including numbness and tingling type sensations and shooting pains . Patients often describe fatigue and may awaken with non restorative sleep quality. The condition can occur in men or women in any age butis most common in women routine the ages of 20 in 50. There is no specific test used that can confirm the diagnosis of fibromyalgia and is considered a diagnosis of exclusion where by other conditions need to be excluded and this may or may not require additional test to be performed. The current nature of fibromyalgia seems to suggest that this syndrome represents a disorder of increased sensitivity in pain perception or so-called central pain amplification. Unfortunately, the exact cause of this disorder still remains elusive and unknown and limits the treatment to symptom relief without any known cure at this time. Rheumatoid factor positive Comments: No identificaton on exam or additional lab testing (anti-CCP negative, normal ESR/CRP) or xrays to suggest rheumatoid arthritis diagnosis by diagnostic criteria Primary osteoarthritis of both first carpometacarpal joints No follow-ups on file. Please do not hesitate to contact me if I can provide any additional follow-up information that youmay require. Rolando Castro D.O., [facility] [address] [place] [address] The total time spent today in the visit with the patient for this initial encounter, including performing chart preparation, review of available data, and documentation, patient education, not related to any procedure or preventative visit services was 20 minutes. 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 [address] Managing Fibromyalgia Fibromyalgia is a chronic illness. It causes widespread body pain, tenderness, stiffness, and constant tiredness (fatigue). It is important to work with your healthcare provider to make a plan so that you can feel better and do the things you enjoy. Take medicines as directed You may be given medicines to help reduce pain and improve sleep. Several medicines are used to treat fibromyalgia. Two were first made to treat depression. They areduloxetine and milnacipran. A third is called pregaballin. It was made to treat nerve pain. Other medicines include pain relievers, such as acetaminophen. Opioid pain medicines and sleep medicines like zolpidem are not advised for treating fibromyalgia symptoms. Nonsteroidal anti-inflammatory drugs (NSAIDs) may also be used to ease pain. These include ibuprofen and naproxen. Get exercise Gentle exercise can help lessen your pain. Try these tips: ?? Choose activities that are gentle on your joints, such as walking, michael chi, gentle yoga, biking,and swimming or other water exercises. ?? Don?t push yourself too hard. Build up your strength and endurance slowly over time. ?? Stick to it. For the most relief, exercise should become part of your daily life. Get a good night?s rest To help you get more sleep, try the tips below: ?? Sleep only in a bed, not on a couch or chair. ?? Don?t watch TV, read, or work in bed. ?? Go to bed and get up at the same time each day. ?? Try not to take naps. ?? Don?t use alcohol, caffeine, or tobacco for at least 3 hours before going to bed. ?? Don?t drink fluids in the evening to prevent having to get up to urinate. Other things you can do Experts don't know what causes fibromyalgia. But stress, poor eating habits, and extra weight can make symptoms worse. These tips may help you feel better: ?? Eat a balanced diet with plenty of fruits and vegetables, whole grains, lean protein, and low-fat or nonfat dairy products. ?? Maintain a healthy weight. ?? Learn ways to reduce or manage the stress in your life. ?? Work with a cognitive behavior therapist to help manage symptoms of depression and anxiety ?? Ask your healthcare provider for resources to help you make changes. Or check out the resources below. To learn more ?? Arthritis Foundation, www.arthritis.org ?? National Fibromyalgia Association, www.fmaware.org ?? [place] Fibromyalgia [employer] Association, www.afsafund.org Last Reviewed Date: 2023 00:00:00 ?? The [employer]. All rights reserved. This information is not intended as a substitute for professional medical care. Always follow your healthcare professional's instructions. * Clinical References AVS - Rolando Castro DO - 06/30/2024 9:53 AM CDT [id number] Fibromyalgia Fibromyalgia is a chronic condition. It causes pain and tenderness in connective tissues and muscles. Often, there are also many sore areas throughout the body. Symptoms may also include stiffness and feelings of numbness and tingling. Symptoms may be worse when you wake up. They may increase with poor sleep, heavy activity, cold or damp weather, anxiety, or stress. People with fibromyalgia often feel tired. They may have trouble sleeping. Other symptoms include morning stiffness, headaches, and painful menstrual periods. Some people have problems with thinking clearly and changes in memory. The cause of fibromyalgia isn't known. Symptoms are a lot like those of other diseases. These include rheumatoid arthritis, low thyroid, chronic fatigue syndrome, and Lyme disease. In some cases, these diseases may occur together. Fibromyalgia is often treated with medicines. You and your healthcare provider can discuss the medicine that may work best for you. You may have to try more than 1 medicine or combination of medicines before you find what works for you. Home care ?? If your healthcare provider has prescribed or advised medicines, take them as directed. ?? Rest as needed. Try to get enough sleep. If you have trouble sleeping, tell your provider. ?? Be active. Regular exercise can help manage symptoms. Some options include walking, swimming, and biking. Strengthening and aerobic exercises may also be helpful. Talk to your provider about the best ways to be active. ?? Follow a healthy diet. Limit caffeine and alcohol. If you smoke, ask your provider for help to stop. ?? Notice how your body reacts to stress. Learn to listen to your body signals. This will help you take action before the stress becomes severe. ?? Learn relaxation methods. Also consider joining a stress reduction program or class. ?? Talk to your provider about trying complementary treatments. These include acupuncture, hypnosis, and biofeedback. Yoga and michael chi may be helpful. ?? Ask your provider about cognitive behavioral therapy (CBT). This type of counseling can help people with fibromyalgia cope better with their illness. Follow-up care Follow up with your healthcare provider as advised. In many cases, fibromyalgia is best treated with a team approach. This may include your primary care provider, a deep fat cook fry, a physical therapist, and a mental health provider. For more information, visit the National [employer] of Arth[employer] and Musculoskeletal and Skin Diseases (NIAMS) website at www.niams.nih.gov or call 370-419-4020. When to get medical advice Contact your healthcare provider right away if any of these occur: ?? Symptoms get worse or new symptoms develop ?? You feel hopeless, helpless, or lose interest in day-to-day life Last Reviewed Date: 2021 00:00:00 ?? [id number] The [employer]. All rights reserved. This information is not intended as a substitute for professional medical care. Always follow your healthcare professional's instructions. * Clinical References AVS - Rolando Castro DO - 06/30/2024 9:53 AM CDT Images from the original note were not included. [id number] Understanding Fibromyalgia Fibromyalgia is a condition that causes chronic pain. The pain may be all over the body or at certain points on the body. You may also have soreness, stiffness, and severe tiredness (fatigue). What are the symptoms of fibromyalgia? Some people have pain all over their body. But in most cases, you will have tender points on your body. These points are very sore, especially when touched. Finding several of these points along withother symptoms helps your healthcare provider diagnose fibromyalgia. People with fibromyalgia tend to have at least 11 of the 18 tender points shown above. Along with the tender points, you may have some or all these symptoms: ?? Constant tiredness (fatigue), even after a full night?s sleep (nonrestorative sleep) ?? Problems with memory or clear thinking, called fibro fog ?? A burning or throbbing pain in many parts of the body (this pain may vary during the day) ?? Stiffness or aching all over your body ?? Numbness or tingling in your arms and legs ?? Trouble sleeping ?? Bowel problems (bloating, diarrhea, constipation, irritable bowel syndrome) ?? Irritable or overactive bladder ?? Pelvic pain ?? Jaw pain ?? Migraine or tension headaches ?? Depression ?? Anxiety How is fibromyalgia diagnosed? There is no specific lab test to diagnose fibromyalgia. Instead, your healthcare provider will takeyour health history. They will also look at your joints and muscles. Certain criteria are used whendiagnosing fibromyalgia. Symptoms need to be present for at least 3 months. Tests may be done to rule out other health problems with similar symptoms. Then you and your provider can make a plan to help you manage your symptoms. How is fibromyalgia treated? Your healthcare provider may advise 1 or more of these treatments: ?? Medicines. Several medicines may be used to treat fibromyalgia. Two were first made to treat depression. They are duloxetine and milnacipran. A third is pregaballin. It was made to treat nerve pain. ?? Pain relievers. Certain medicines may be used to ease pain. Your provider may tell you to take acetaminophen or a nonsteroidal anti-inflammatory drug (NSAID) like ibuprofen or naproxen. Opioid pain medicines and sleep medicines like zolpidem are not advised for treating fibromyalgia symptoms. ?? Lifestyle changes. You may feel better if you get enough sleep and exercise regularly. Yoga and michael chi are gentle, meditative exercise options. Eating healthy foods may also help with symptoms. ?? Cognitive behavioral therapy. This is a form of talk therapy that can help manage depression andanxiety ?? Alternative treatments. Some people feel better after trying massage or chiropractic treatment. Other choices are biofeedback or acupuncture. Last Reviewed Date: 2023 00:00:00 ?? [id number] The [employer]. All rights reserved. This information is not intended as a substitute for professional medical care. Always follow your healthcare professional's instructions. documented in this encounter Plan of Treatment Not on file documented as of this encounter Visit Diagnoses Diagnosis Fibromyalgia syndrome- Primary Mylagia and myositis, unspecified Rheumatoid factor positive Other and unspecified nonspecific immunological findings Primary osteoarthritis of both first carpometacarpal joints Primary localized osteoarthrosis, hand * Assessment & Plan Note - Rolando Castro, - 06/30/2024 9:52 AM CDTAssociated Problem(s): Fibromyalgia syndrome Multiple tender points identified that might explain both joint pain, burning upper back pain and hand/finger numbness/tingling (reports negative NCV testing). I discussed the approach to the clinical diagnosis of a fibromyalgia syndrome as a cause for chronic musculoskeletal pain. I do not provide long-term care for the treatment of fibromyalgia and I have suggested that at thispoint it is not necessary to add any additional medications to possibly relieve symptoms related tothis non-inflammatory hypersensitivity pain disorder. Sarahy Gill was provided additional written information regarding fibromyalgia for further educational information. Fibromyalgia is a painful condition that is not completely understood by medical experts. The causeof fibromyalgia is not known. A person may feel tired and ache all over. It causes tender spots on the body that hurt only when pressed upon. A patient may have trouble sleeping, as well as other symptoms. These problems can upset work and home life. Symptoms tend to come and go, although they may never go away completely. Fibromyalgia does not harm the muscles, joints or organs or cause any permanent deformity or disability in the body. Fibromyalgia syndrome is characterized by generalized noninflammatory pain and is associated with long-standing pain that may come and go and be variable or at time persistently contant. The pain may be located in the soft tissues including tendons or muscle s or joints. The pain can occur in any of the extremities and also be felt along the spine or torso. This is the reason some people feel that they have arthritis. Other unusual symptoms that may suggest an underlying neurologic disorder have also been described in patients with fibromyalgia including numbness and tingling type sensations and shooting pains . Patients often describe fatigue and may awaken with non restorative sleep quality. The condition can occur in men or women in any age butis most common in women routine the ages of 20 in 50. There is no specific test used that can confirm the diagnosis of fibromyalgia and is considered a diagnosis of exclusion where by other conditions need to be excluded and this may or may not require additional test to be performed. The current nature of fibromyalgia seems to suggest that this syndrome represents a disorder of increased sensitivity in pain perception or so-called central pain amplification. Unfortunately, the exact cause of this disorder still remains elusive and unknown and limits the treatment to symptom relief without any known cure at this time. documented in this encounter Care Teams Auto Machinist Relationship Specialty Start Date End Date Mandeep Pennington DO [address] [place] [address] PCP - General Internal Medicine 06/30/24 documented as of this encounter
--- OUTSIDE RECORDS SUMMARY | 2024-08-16 04:29 | XMS_ITS | Referral Summary ---
Author Organization [facility] Address [address] [place] [address] Care Team Providers Care Notary Public Name Role Phone Mandeep Pennington DO Primary Care Provider [phone] Source Comments [facility] and Associated Physician Practices is amultiple site organization consisting of ambulatory clinics and hospital sitesin [place], [place], [place] and [place]. This disclosure is being madepursuant to the Care Everywhere program and may not contain all information available regarding this patient. Last updated 18.[facility] Encounters Date Type Department Care Team Description 06/30/2024 9:20 AM CDT Office Visit [facility] - Rheumatology [address] [place] [address], [address] [place] [address] Rolando Castro DO Fibromyalgia syndrome (Primary Dx); Rheumatoid factor positive; Primary osteoarthritis of both first carpometacarpal joints 06/06/2024 1:15 PM CDT - 06/06/2024 11:59 PM CDT Hospital Encounter [facility] Imaging Services [address] [place] [address] Rolando Castro DO Discharge Disposition: Home or Self Care 05/30/2024 3:00 PM CDT Office Visit [facility] - Rheumatology [address], [address] [place] [id number] Rolando Castro DO Polyarthralgia (Primary Dx); Rheumatoid factor positive; Fibromyalgia syndrome; History of IBS from Last 3 Months Allergies Active Allergy Reactions Criticality Noted Date Comments Azithromycin Other,GI Discomfort Low 07/29/2016 Abdominal pain Metoclopramide Other Low 09/24/2021 Doesn't like the way it makes her body feel. Had TIA after trying. Doesn't like the way it makes her body feel. Prochlorperazine Other,Unknown Low 07/29/2016 made me feel weird, odd also agitation Promethazine Other Low 08/08/2021 Made her feel spaced out Medications * Be aware that medications may not be up to date on this document. Alwaysverify current medications with the patient. Medication Sig Dispensed Refills Start Date End Date Status Acetaminophen Extra Strength 500 MG TABS Take 1 (one) tablet by mouth every 6 hours as needed For pain. 07/18/2023 Active amitriptyline (Elavil) 10 MG tablet Take 1 (one) tablet by mouth Active apixaban (Eliquis) 5 MG tablet Take 1 (one) tablet by mouth 2 times daily Active atorvastatin (Lipitor) 40 MG tablet Take 1 (one) tablet by mouth at bedtime Active busPIRone (Buspar) 10 MG tablet 1 (one) tablet 05/06/2024 Active dicyclomine (Bentyl) 20 MG tablet Take 1 (one) tablet by mouth 04/17/2023 Active famotidine (Pepcid) 20 MG tablet Take 1 (one) tablet by mouth once daily as needed Active flecainide (Tambocor) 100 MG tablet TAKE 1 TABLET BY MOUTH TWICE DAILY. START TAKING SATURDAY 07/07 Active meclizine (Antivert) 12.5 MG tablet Take 1 (one) tablet by mouth 3 times daily as needed 10/16/2023 Active metoprolol succinate XL 24hr (Toprol XL) 25 MG tablet Take 1 (one) tablet by mouth once daily Active ondansetron, disintegrating, (Zofran ODT) 4 MG tablet DISSOLVE 1 TABLET ON THE TONGUE EVERY 8 HOURS NEEDED FOR NAUSEA OR VOMITING 07/18/2023 Active pantoprazole EC (Protonix) 40 MG tablet Take 1 (one) tablet by mouth 2 times daily 05/13/2024 Active SUMAtriptan Succinate 6 MG/0.5ML 01/04/2024 Active Active Problems Problem Noted Date Diagnosed Date Polyarthralgia 05/30/2024 Overview (05/30/2024): Despite positive RF no current examination findings to confirm rheumatoid arthritis identified. Check CRP/ESR, anti-CCP and hand/foot xrays. Recheck 2 weeks. Rheumatoid factor positive 05/30/2024 Fibromyalgia syndrome 05/30/2024 Overview (05/30/2024): Multiple tender points identified that might explain both joint pain, burning upper back pain and hand/finger numbness/tingling (reports negative NCV testing). Assessment & Plan (06/30/2024 9:52 AM CDT): Multiple tender points identified that might explain both joint pain, burning upper back pain and hand/finger numbness/tingling (reports negative NCV testing). I discussed the approach to the clinical diagnosis of a fibromyalgia syndrome as a cause for chronic musculoskeletal pain. I do not provide long-term care for the treatment of fibromyalgia and I have suggested that at this point it is not necessary to add any additional medications to possibly relieve symptoms related to this non-inflammatory hypersensitivity pain disorder. Sarahy Gill was provided additional written information regarding fibromyalgia for further educational information. Fibromyalgia is a painful condition that is not completely understood by medical experts. The cause of fibromyalgia is not known. A person may [...] in the soft tissues including tendons or muscles or joints. The pain can occur in [...] in men or women in any age but is most common in women routine the ages [...] without any known cure at this time. History of IBS 05/30/2024 Social History Tobacco Use Types Packs/Day Years Used Date Smoking Tobacco: Never Smokeless Tobacco: Never Tobacco Cessation:Counseling Given: Not Answered Alcohol Use Standard Drinks/Week Comments Not Currently 0 (1 standard drink = 0.6 oz pur e alcohol) Sex and Gender Information Value Date Recorded Sex Assigned at Not on file Gender Identity Not on file Sexual Orientation Not on file Last Filed Vital Signs Vital Sign Reading [...] Mass Index 24.72 06/30/2024 9:18 AM CDT Plan of Treatment Not on file Procedures Procedure Name Priority Date/Time Associated Diagnosis Comments HEPATITIS C ANTIBODY Routine 06/06/2024 2:30 PM CDT Rheumatoid factor positive QUANTIFERON TB-GOLD Routine 06/06/2024 2 :30 PM CDT Rheumatoid factor positive CYCLIC CITRUL PEPTIDE ANTIBODY IGG/IGA (CCP) Routine 06/06/2024 2:30 PM CDT Polyarthralgia ERYTHROCYTE SEDIMENTATION RATE Routine 06/06/2024 2:30 PM CDT Polyarthralgia C-REACTIVE PROTEIN Routine 06/06/2024 2: 30 PM CDT Polyarthralgia XR FOOT BILAT 3VW OR MORE Routine 06/06/2024 2:06 PM CDT Polyarthralgia Rheumatoid factor positive XR HAND BILAT 3VW OR MORE Routine 06/06/2024 2:06 PM CDT Polyarthralgia Rheumatoid factor positive from Last 3 Months Results * CYCLIC CITRUL PEPTIDE ANTIBODY IGG/IGA (CCP) (06/06/2024 2:30 PM CDT) CCP Antibodies IgG/IgA 8 0 - 19 units [facility] INSURANCE BILL Comment: ?Negative ? <20 ?Weak positive ?20 - 39 ?Moderate positive ??40 - 59 ?Strong positive ?>59 Blood BLOOD SPECIMEN / Unknown 06/06/2024 2:30 PM CDT 06/06/2024 Narrative [facility] INSURANCE BILL - 06/07/2024 1:10 PM CDT Performed at: ??01 - [facility] [address] [place], [place] ??[id number] Telecom Manager: Edmundo Dias PhD, Phone: ??[phone] Rolando Castro DO LAB - SEROLOGY ORDER KIRA [facility] INSURANCE BILL [address] [place] [address] * C-REACTIVE PROTEIN (CRP) (06/06/2024 2:30 PM CDT) Pathologist [facility] C-Reactive Protein <1 0 - 10 mg/L [facility] INSURANCE BILL Blood BLOOD SPECIMEN / Unknown 06/06/2024 2:30 PM CDT 06/06/2024 Narrative [facility] INSURANCE BILL - 06/07/2024 1:10 PM CDT Performed at: ??01 - [address] ??[id number] Telecom Manager: Edmundo Dias PhD, Phone: ??[phone] Rolando Castro DO LAB - CHEMISTRY ROQUE WALDRON [facility] INSURANCE BILL [address] [place] [address] * QUANTIFERON TB-GOLD (06/06/2024 2:30 PM CDT) [facility] QuantiFERON Incubation Incubation performed. [facility] INSURANCE BILL QuantiFERON-TB Gold Plus Negative Negative [facility] INSURANCE BILL Comment: No response to M tuberculosis antigens detected. Infection with M tuberculosis is unlikely, but high risk individuals should be considered for additional testing (ATS/IDSA/CDC Clinical Practice Guidelines, 2017). The reference range is an Antigen minus Nil result of <0.35 IU/mL. Chemiluminescence immunoassay methodology Performed at: ??[address] - [address] ??[id number] Telecom Manager: Edmundo Disa PhD, Phone: ??[phone] QuantiFERON Criteria Comment [facility] INSURANCE BILL Comment: QuantiFERON-TB Gold Plus is a qualitative indirect test for M tuberculosis infection (including disease) and is intended for use in conjunction with risk assessment, radiography, and other medical and diagnostic evaluations. The QuantiFERON-TB Gold Plus result is determined by subtracting the Nil value from either TB antigen (Ag) value. The Mitogen tube serves as a control for the test. QuantiFERON TB1 Ag Value 0.00 IU/mL [facility] INSURANCE BILL QuantiFERON TB2 Ag Value 0.00 IU/mL [facility] INSURANCE BILL QuantiFERON Nil Value 0.00 IU/mL [facility] INSURANCE BILL QuantiFERON Mitogen Value >10.00 IU/mL [facility] INSURANCE BILL Blood BLOOD SPECIMEN / Unknown 06/06/2024 2:30 PM CDT 06/06/2024 Narrative [facility] INSURANCE BILL - 06/08/2024 11:07 PM CDT Performed at: ??[address] - [address] ??[id number] Telecom Manager: Edmundo Dias PhD, Phone: ??[phone] Rolando Castro DO LAB - CHEMISTRY ORDE RABLES Performing Organization Address City/[facility]/ZIP Co de Phone Number [facility] INSURANCE BILL [address] [place] [address] * SED RATE AUTO (ESR) (06/06/2024 2:30 PM CDT) Erythrocyte Sedimentation Rate Westergren 2 0 - 40 mm/hr [facility] INSURANCE BILL Blood BLOOD SPECIMEN / Unknown 06/06/2024 2:30 PM CDT 06/06/2024 Narrative [facility] INSURANCE BILL - 06/07/2024 7:12 AM CDT Performed at: ??[address] [facility] ??[id number] Telecom Manager: Edmundo Dias PhD, Phone: ??[phone] Rolando Castro DO LAB - HEMATOLOGY ORD ERABLES Performing Organization Address City/[facility] Co de Phone Number [facility] INSURANCE BILL [address] [place] [address] * HEPATITIS C ANTIBODY (06/06/2024 2:30 PM CDT) Hepatitis C Antibody Non Reactive Non Reactive [facility] INSURANCE BILL Comment: HCV antibody alone does not differentiate between previously resolved infection and active infection. Equivocal and Reactive HCV antibody results should be followed up with an HCV RNA test to support the diagnosis of active HCV infection. Blood BLOOD SPECIMEN / Unknown 06/06/2024 2:30 PM CDT 06/06/2024 Narrative [facility] INSURANCE BILL - 06/07/2024 7:12 AM CDT Performed at: ??01 - [facility] [address] [place], [place] ??[id number] Telecom Manager: Edmundo Dias PhD, Phone: ??[phone] Rolando Castro DO LAB - CHEMISTRY ROQUE [place] [facility] INSURANCE BILL [address] [place] [address] * XR Foot Bilat 3Vw or More (06/06/2024 2:06 PM CDT) Anatomical Region Laterality Modality Ankle / Foot, Lower Extremity Ra diographic Imaging 06/06/2024 3:01 PM CDT Impressions 06/06/2024 3:01 PM CDT IMPRESSION: Normal feet radiographs. > Interpreting Provider: Natalia Hamm MD on 06/06/2024 3:01 PM Narrative 06/06/2024 3:01 PM CDT PROCEDURE: ??XR FOOT BILAT 3VW OR MORE DATE/TIME OF EXAM: ??06/06/2024 2:07 PM CLINICAL INFORMATION: None relevant/not provided if blank. Indication: M25.50: Pain in unspecified joint R76.8: Other specified abnormal immunological findings in serum Additional History: COMPARISON: None. FINDINGS: There is no fracture. Alignment is normal. Joint spaces are normal. There is no appreciable soft tissue abnormality. Procedure Note Natalia Hamm MD - 06/06/2024 PROCEDURE: XR FOOT BILAT 3VW OR MORE DATE/TIME OF EXAM: 06/06/2024 2:07 PM CLINICAL INFORMATION: None relevant/not provided if blank. Indication: M25.50: Pain in unspecified joint R76.8: Other specified abnormal immunological findings in serum Additional History: COMPARISON: None. FINDINGS: There is no fracture. Alignment is normal. Joint spaces are normal. There is no appreciable soft tissue abnormality. IMPRESSION: Normal feet radiographs. > Interpreting Provider: Natalia Hamm MD on 06/06/2024 3:01 PM Rolando Castro DO DIAGNOSTIC IMAGING O RDERABLES * XR Hand Bilat 3Vw or More (06/06/2024 2:06 PM CDT) Anatomical Region Laterality Modality Upper Extremity, Wrist / Hand Ra diographic Imaging 06/06/2024 3:00 PM CDT Impressions 06/06/2024 3:00 PM CDT IMPRESSION: Right hand and wrist osteoarthritis. > Interpreting Provider: Natalia Hamm MD on 06/06/2024 3:00 PM Narrative 06/06/2024 3:00 PM CDT PROCEDURE: ??XR HAND BILAT 3VW OR MORE DATE/TIME OF EXAM: ??06/06/2024 2:07 PM CLINICAL INFORMATION: None relevant/not provided [...] There is no appreciable soft tissue abnormality. Procedure Note Natalia Hamm MD - 06/06/2024 PROCEDURE: XR HAND BILAT 3VW OR MORE DATE/TIME OF EXAM: 06/06/2024 2:07 PM CLINICAL INFORMATION: None relevant/not provided if blank. Indication: M25.50: Pain in unspecified joint R76.8: Other specified abnormal immunological findings in serum Additional History: COMPARISON: None. FINDINGS: There is no fracture. Alignment is normal. There is arthritis throughout the right hand and wrist, most severe at the bases of thethumb and triscaphe joint. There is no identifiable erosion. There is no appreciable soft tissue abnormality. IMPRESSION: Right hand and wrist osteoarthritis. > Interpreting Provider: Natalia Hamm MD on 06/06/2024 3:00 PM Rolando Castro DO DIAGNOSTIC IMAGING O RDERABLES from Last 3 Months Care Teams Notary Public Relationship Specialty Start Date End Date Mandeep Pennington DO [address] [place] [address] PCP - General Internal Medicine 06/30/24
--- OUTSIDE RECORDS SUMMARY | 2024-08-16 04:29 | XMS_ITS | Encounter Summary ---
Author Organization [facility] Care Team Providers Care Grainer Machine Name Role Phone Parmjit Dai MD Primary Care Provider [phone] Jazmine Kulkarni MD Unavailable [phone] Encounter Details Date Type Department Care Team (Latest Contact Info) Description 09/04/2023 Travel Social History Tobacco Use Types Packs/Day [...] on filedocumented in this encounter Care Teams Grainer Machine Relationship Specialty Start Date End Date Parmjit Dai MD [address] [place] [address] [address] [place] [address] PCP - General Family Medicine 05/21/22 Jazmine Kulkarni MD [address] [place] [address] [address] [place] [address] Family Medicine 05/21/22 documented as of this encounter
--- OUTSIDE RECORDS SUMMARY | 2024-08-16 04:29 | XMS_ITS | Encounter Summary ---
Author Organization [facility] Address [address] [facility] [place] [address] Phone Care Team Providers Care International First Officer Name Role Phone Parmjit Dai MD Primary Care Provider [phone] Jazmine Kulkarni MD Unavailable + [phone] Reason for Visit * Episode Based Medications (Routine) - Closed Specialty Diagnoses / Procedures Referred By Loreta t Referred To Contact Diagnoses Iron deficiency anemia, unspecified iron deficiency anemia type Milla Brenner Betina, PAC [address] [place] [address] Phone: tel: fax: [facility] [address] [place] [address] Phone: tel: fax: Referral ID Status Reason Start Date Expiration Date Visits Re quested Visits Authorized [id number] Closed 08/14/2023 4 4 Encounter Details Date Type Department Care Team (Late st Contact Info) Description 08/26/2023 9:00 AM AUDIOMETRIST Clinical Support [facility] [address] [place] [id number] Ramone Soto MD [address] [place] [address] Iron deficiency anemia, unspecified iron deficiency anemia type (Primary Dx) Discharge Disposition: Discharged to home or Selfcare Social History Tobacco Use Types Packs/Day Years [...] Sign Reading Time Taken Comments Blood Pressure 127/75 08/26/2023 9:05 AM AUDIOMETRIST Pulse 74 08/26/2023 9:05 AM AUDIOMETRIST Temperature 36.3 ??C (97.4 ??F) 08/26/2023 9:05 AM CS T Respiratory Rate 16 08/26/2023 9:05 AM AUDIOMETRIST Oxygen Saturation - - Inhaled Oxygen Concentration - - Weight - - Height - - Body Mass Index - - documented in this encounter Progress Notes * Monique Short, RN - 08/26/2023 9:00 AM CST Patient arrived in Infusion. IV started.Medication education completed. Patient verbalized no quesitons. Medication given as order per parameters per MD. See VS/IV per flowsheets. Infusion completed.IV dc'd. Patient discharged without concerns. AVS declined. Patient aware of Thursday appointment fornext Infusion. OMETRIST documented in this encounter Plan of Treatment Not on file documented as of this encounter Visit Diagnoses Diagnosis Iron deficiency anemia, unspecified iron deficiency anemia type- Primary documented in this encounter Administered Medications Inactive Administered Medications - up to 3 most recent administrations Medication Order MAR Action Action Date Dose Rate Site iron sucrose (VENOFER) 300 mg in sodium chloride 0.9 % 250 mL IVPB 300 mg, Intravenous, ONCE, 1 dose, On Thu08/26/23 at 1000, Administer over 90 Minutes, Monitor patient for 30 minutes after infusion completedIndications:Iron deficiency anemia, unspecified iron deficiency anemia type New Bag 08/26/2023 9:43 AM AUDIOMETRIST 300 mg 166.7 mL/hr documented in this encounter Care Teams International First Officer Relationship Specialty Start Date End Date Parmjit Dai MD [address] [place] [address] [address] [place] [address] PCP - General Family Medicine 05/21/22 Jazmine Kulkarni MD [address] [facility] [address] Family Medicine 05/21/22 documented as of this encounter
--- OUTSIDE RECORDS SUMMARY | 2024-08-16 04:29 | XMS_ITS | Clinical Summary ---
Author Organization [facility] Address [address] [place] [address] Phone Care Team Providers Care Shovel Handle Assembler Name Role Phone Parmjit Dai MD Primary Care Provider [phone] Jazmine Kulkarni MD Unavailable + [phone] Mir Spencer MD Unavailable Allergies Active Allergy Reactions Criticality Noted Date Comments Azithromycin Other (see Comments) 08/14/2023 Abdominal pain Prochlorperazine Unknown 10/29/2023 Promethazine Other (see Comments) 08/14/2023 Made her feel spaced out Metoclopramide Other (see Comments) 10/29/2023 Doesn't like the way it makes her body feel. Medications apixaban (Eliquis) 5 MG Tablet Take 5 mg by mouth 2 times daily. Active flecainide (TAMBOCOR) 100 MG Tablet Take 100 mg by mouth 2 times daily. Active metoprolol tartrate (LOPRESSOR) 25 MG Tablet Take 25 mg by mouth 2 times daily. Active atorvastatin (LIPITOR) 40 MG Tablet Take 40 mg by mouth nightly. Active nortriptyline (PAMELOR) 25 MG Capsule Take 25 mg by mouth daily. Active pantoprazole (PROTONIX) 40 MG Pack 40 mg by Per NG tube route 2 times daily. Active famotidine (PEPCID) 20 MG Tablet Take 20 mg by mouth daily. Active Ondansetron HCl (ZOFRAN PO) Take by mouth as needed. Active baclofen (LIORESAL) 10 MG Tablet Take 10 mg by mouth 3 times daily. Active Dicyclomine HCl (BENTYL PO)Indications:U p to four times a day Take by mouth. Indications : Up to four times a day Active Active Problems Problem Noted Date Diagnosed Date Anemia Immunizations Immunization Administration Dates Next Due Influenza Vaccine 08/05/2015 Influenza Vaccine, Quadrivalent, PF 05/31,08/20/2021,05/30/2020,2019,07/31/2017 Influenza Vaccine,unspecifie d Formulation 07/01/2022,05/01/2021 Influenza, Injectable, Quadrivalent 07/14/2023,0 09/07/2018,09/08/2016 Influenza, Seasonal, Injecta ble, Undefined 06/02/2014 TDAP Vaccine 07/31/2017 Family History Medical History Relation Name Comments Cancer Maternal Aunt Cancer Maternal Grandmother Diabetes Maternal Grandmother Stroke Maternal Grandmother Relation Name Status Comments Father Maternal Aunt Maternal Grandmother Mother Alive Social History Tobacco Use Types Packs/Day Years Used Date Smoking Tobacco: Former Cigarettes 0.5 10 1 990 - 2000 Smokeless Tobacco: Never Alcohol Use Standard Drinks/Week Comments Not Currently 0 (1 standard drink = 0.6 oz pur e alcohol) Sexually Active Control Partners Comments Not Currently Comments No Sex and Gender Information Value Date Recorded Sex Assigned at Not on file Legal Sex Female 1:04 PM CDT Gender Identity Not on file Sexual Orientation Not on file Last Filed Vital Signs Vital Sign Reading Time Taken Comments Blood Pressure 96/66 10/29/2023 8:05 AM SAWDUST MACHINE OPERATOR Pulse 52 10/29/2023 8:05 AM SAWDUST MACHINE OPERATOR Temperature 36.9 ??C (98.4 ??F) 10/16/2023 8:53 AM CS T Respiratory Rate 20 10/29/2023 8:05 AM SAWDUST MACHINE OPERATOR Oxygen Saturation 100% 10/16/2023 8:53 AM SAWDUST MACHINE OPERATOR Inhaled Oxygen Concentration - - Weight 56.7 kg (125 lb) 10/29/2023 8:05 AM SAWDUST MACHINE OPERATOR Height 162.6 cm (5' 4 ) 10/29/2023 8:05 AM SAWDUST MACHINE OPERATOR Body Mass Index 21.46 10/29/2023 8:05 AM SAWDUST MACHINE OPERATOR Plan of Treatment Health Maintenance Due Date Last Done Comments Hepatitis C Virus (HCV) Screening 1968 Hepatitis B Immunization (1 of 3 - 19+ 3-dose series) 1987 Pap Smear 1989 Cervical Cancer Screening (CCS) 1998 HPV/Cotest 1998 Cologuard 2018 Zoster Immunization (1 of 2) 2018 Influenza Immunization (#1) 05/01/202407/01, 07/01/2022, 06/18/2022, Additional history exists SARS-COV-2 Immunization ( season) 2024 02/20/2021, 01/23/2021 Immunochemical Fecal Occult Blood 06/10/2024 06/10/2023 Mammogram 11/10/2025 11/11/2023, 05/20/2022 Td Immunization Every 10 Years (Adults With 1 Tdap) 07/31/2027 07/31/2017 Colonoscopy 10/29/2032 10/29/2022 Colorectal Cancer Screening 10/29/2032 Respiratory Syncytial Virus (RSV) Immunization (Adult) (1 - 1-dose 75+ series) 2043 10/29/2022 DTaP/Tdap/Td Immunization Discontinued 07/31/2017 Meningococcal Immunization (ACWY) Aged Out No longer eligible based on patient's age to complete this topic Pneumococcal Immunization Combined Aged Out No longer eligible based on patient's age to complete this topic Rotavirus Immunization Aged Out No lo nger eligible based on patient's age to complete this topic Insurance [place] MED[place]ARE C [employer] [facility] Care Teams Shovel Handle Assembler Relationship Specialty Start Date End Date Parmjit Dai MD [address] [facility] [address] [place] [address] PCP - General Family Medicine 05/21/22 Jazmine Kulkarni MD [address] [facility] [facility] [facility] [address] [place] [address] Family Medicine 05/21/22 Mir Spencer MD [address] [place] [address] Consulting Physician Urology 10/29/23
--- OUTSIDE RECORDS SUMMARY | 2024-08-16 04:29 | XMS_ITS | Encounter Summary ---
Author Organization [employer] Care Team Providers Care Supervisor Hot Dip Plating Name Role Phone Parmjit Dai MD Primary Care Provider [phone] Jazmine Kulkarni MD Unavailable + [phone] Mir Spencer MD Unavailable Encounter Details Date Type Department Care Team (Latest Contact Info) Description 10/29/2023 Travel Social History Tobacco Use Types Packs/Day [...] on filedocumented in this encounter Care Teams Supervisor Hot Dip Plating Relationship Specialty Start Date End Date Parmjit Dai MD [address] [place] [address] [address] [place] [address] PCP - General Family Medicine 05/21/22 Jazmine Kulkarni MD [address] [place] [address] [address] [place] [address] Family Medicine 05/21/22 Mir Spencer MD [address] [facility], [address] [address] Consulting Physician Urology 10/29/23 documented as of this encounter
--- OUTSIDE RECORDS SUMMARY | 2024-08-16 04:29 | XMS_ITS | Encounter Summary ---
Author Organization [employer] Care Team Providers Care Siding Stapler Name Role Phone Parmjit Dai MD Primary Care Provider [phone] Jazmine Kulkarni MD Unavailable + [phone] Encounter Details Date Type Department Care Team (Latest Contact Info) Description 10/14/2023 Travel Social History Tobacco Use Types Packs/Day [...] on filedocumented in this encounter Care Teams Siding Stapler Relationship Specialty Start Date End Date Parmjit Dai MD [address] [place] [address] [address] [place] [address] PCP - General Family Medicine 05/21/22 Jazmine Kulkarni MD [address] [place] [address] [address] [place] [place] [address] Family Medicine 05/21/22 documented as of this encounter
--- OUTSIDE RECORDS SUMMARY | 2024-08-16 04:29 | XMS_ITS | Encounter Summary ---
Author Organization [facility] Address [address] [place] [address] Care Team Providers Care Weigher Packing Name Role Phone Unavailable Primary Care Provider Unavailabl e Reason for Visit * Reason Comments Establish Care +RF, polyarthralgia Encounter Details Date Type Department Care Team (Late st Contact Info) Description 05/30/2024 3:00 PM CDT Office Visit [facility] - Rheumatology [address], [address] [place] [address] Rolando Castro DO [address] [place] [address] Polyarthralgia (Primary Dx); Rheumatoid factor positive; Fibromyalgia syndrome; History of IBS Social History Tobacco Use Types Packs/Day Years [...] Sign Reading Time Taken Comments Blood Pressure 98/60 05/30/2024 3:09 PM CDT Pulse 56 05/30/2024 3:09 PM CDT Temperature 36.7 ??C (98 ??F) 05/30/2024 3:09 PM CDT Respiratory Rate 16 05/30/2024 3:09 PM CDT Oxygen Saturation 99% 05/30/2024 3:09 PM CDT Inhaled Oxygen Concentration - - Weight 63.5 kg (140 lb) 05/30/2024 3:09 PM CDT Height 162.6 cm (5' 4 ) 05/30/2024 3:09 PM CDT Body Mass Index 24.03 05/30/2024 3:09 PM CDT documented in this encounter Patient Instructions * Patient Instructions* Rolando Castro DO - 05/30/2024 3:46 PM CDT ICD-10-CM 1. Polyarthralgia Active M25.50 2. Rheumatoid factor positive R76.8 3. Fibromyalgia syndrome Active M79.7 4. History of IBS Z87.19 Polyarthralgia (Primary) Comments: Despite positive RF no current examination findings to confirm rheumatoid arthritis identified. Check CRP/ESR, anti-CCP and hand/foot xrays. Recheck 2 weeks. Orders: - C-REACTIVE PROTEIN (CRP) - SED RATE AUTO (ESR) - CYCLIC CITRUL PEPTIDE ANTIBODY IGG/IGA (CCP) - XR Hand Bilat 3Vw or More; Future - XR Foot Bilat 3Vw or More; Future Rheumatoid factor positive The finding of a positive rheumatoid factor of undetermined clinical significance (with low pre-test probability for rheumatoid arthritis) without current history, examination findings, and/or additional available laboratory results for review, regarding this finding being consistent with the specific diagnosis of rheumatoid arthritis by [employer] classification criteria nor seems to suggest any other active inflammatory polyarthropathy at this time. Rheumatoid factors are nonspecific in nature and can be seen in otherwise healthy individuals and generally are more frequently found in older age groups. Rheumatoid factor can be seen as an immunologic phenomena in patients with chronic infections (e.g. tuberculosis, syphilis, hepatitis C), chronic gingivitis and periodontal disease, cryoglobulinemia, and pulmonary fibrosis. Additional evaluation should be consideredin clinically indicated cases. - XR Hand Bilat 3Vw or More; Future - XR Foot Bilat 3Vw or More; Future - QUANTIFERON TB-GOLD - HEPATITIS C ANTIBODY - RPR; Future Fibromyalgia syndrome Comments: Multiple tender points identified that might explain both joint pain, burning upper back pain and hand/finger numbness/tingling (reports negative NCV testing). Might be a good candidate to consider use of duloxetine that might be effective for fibromyalgia related pain symptoms but also might benefit IBS reported symptoms (in place of buspirone). I discussed the approach to the clinical diagnosis of a fibromyalgia syndrome as a cause for chronic musculoskeletal pain. I do not provide long-term care for the treatment of fibromyalgia and I have suggested that Sarahy Samayoa follow-up with her primary care provider/physician for any additional needed long-term treatment approach recommendations that may be of benefit for relief of symptoms related to this non-inflammatory hypersensitivity pain [...] cure at this time. History of IBS documented in this encounter Progress Notes * Rolando Castro DO - 05/30/2024 3:16 PM CDT RHEUMATOLOGY INITIAL OFFICE ENCOUNTER NOTE 05/30/2024 REFERRING PHYSICIAN/PROVIDER: SEUN Simon [address] [place] [address] PRIMARY CARE PHYSICIAN /PROVIDER: No primary care provider on file. No primary provider on file. REASON FOR CONSULT: Chief Complaint Patient presents with Establish Care +RF, polyarthralgia HISTORY OF PRESENTING ILLNESS: Sarahy Gill is a 54 year old female who was referred to [facility]'s Rheumatology for evaluation of progressively worsening polyarthralgia over the past 12 months primarily involving her hands, radial and ulnar wrists (worse with certain movements), shoulders (described as a burning sensation), upper back pain on the left, back, left hip and bilateral foot pain (contributing to difficulty walking) along with the laboratory finding of a positive rheumatoid factor at 56.8 IU per mL (normal less than 12).. She does describe a component of morning stiffness upon awakening in the morningin her hands feel tight but she also experiences increased pain in her feet with inactivity as welland more recently has experienced acute right knee pain felt like her joint had ???popped out of place?? and yesterday her to loud cracking sensation in his awaiting follow-up with an philosophy specialist and now using an Tyron wrap on her right knee. She does indicate a history of atrial fibrillation on long-term apixaban systemic anticoagulation (avoids the use of NSAIDs) and also has been diagnosed with irritable bowel syndrome and has been prescribed buspirone, amitriptyline and dicyclomine. Outside records review: Records received from referring office of SEUN Simon [address] [place] [address] include a single chart note dated 04/01/2024 [...] Never Smokeless tobacco: Never Vaping Use Vaping Use: Every day Substance and Sexual Activity Alcohol use: Not Currently Drug use: Yes Frequency: 7.0 times per week Types: Marijuana Sexual activity: Not on file Other Topics Concern Not on file Social History Narrative Not on file Social Determinants of Health Financial Resource Strain: Not on file Food Insecurity: Not on file Transportation Needs: Not on file Stress: Not on file Housing Stability: Not on file There is no immunization history on file [...] by mouth 3 times daily as needed metoprolol succinate XL 24hr (Toprol XL) 25 MG tablet Take 1 (one) tablet by mouth once daily ondansetron, disintegrating, (Zofran ODT) 4 MG tablet DISSOLVE 1 TABLET ON THE TONGUE EVERY 8 HOURSAS NEEDED FOR NAUSEA OR VOMITING pantoprazole EC (Protonix) 40 MG tablet Take 1 (one) tablet by mouth 2 times daily SUMAtriptan Succinate 6 MG/0.5ML No current facility-administered medications for this visit. VITALS: Wt Readings from Last 3 Encounters: 05/30/24 63.5 kg (140 lb) Temp Readings from Last 3 Encounters: 05/30/24 98 ??F (36.7 ??C) BP Readings from Last 3 Encounters: 05/30/24 98/60 Pulse Readings from Last 3 Encounters: 05/30/24 56 GEN: Examined while sitting in a manual clinic wheelchair. Accompanied by her . HEENT: Anicteric, noninjected sclera without appearance of episcleritis, scleritis or ciliary flush. MSK: No active synovitis or appearance of chronic rheumatoid joint deformities identified. Multiplesoft tissue tender points suggestive of allodynia with >11/18 positive fibromyalgia tender points noted. Physical Exam There is currently no information documented on the homunculus. Go to the Rheumatology activity andcomplete the homunculus joint exam. SKIN: No rash including plaque psoriasis or nodules identified. PSYCH: Alert. Appropriate. LABS: No results for input(s): WBC , RBC , HGB , HCT , MCV , MCHC , PLTCOUNT , NEUTPCT , LYMPHPCT , MONOCYTPCT , EOSINPCT , BASOPHILPCT , GRANSIMMPCT , NEUTABS , LYMPHABS , MONOCYTABS , EOSINABS , BASOABS , IMMGRANSABS in the last 76734 hours. No results for input(s): SODIUM , POTASSIUM , CHLORIDE , CO2 , BUN , CREATININE , GLUCOSE , CALCIUM , ALBUMIN , ALKPHOS , ALT , AST , TBIL , TPROT , EGFR in the last 26017 hours. No results for input(s): CRP in the last 01464 hours. No results for input(s): SEDRATE in the last 97314 hours. No results for input(s): RAQNT in the last 17256 hours. No results for input(s): CCPIGG in the last 61577 hours. No results for input(s): NITIN , ANATITER in the last 81448 hours. No results for input(s): DNAABDS in the last 94690 hours. No results for input(s): C3 in the last 16320 hours., No results for input(s): C4 in the last 91601 hours. No results for input(s): SMAB , SMRNPAB , SSAAB , SSBAB , THC76YM in the last 74348 hours. No results for input(s): CK in the last 89979 hours. No results for input(s): COLORUA , CLARITYUA , SPECGRAVUA , PHUA , PROTEINUA , BLOODUA , LEUKOCYTEUA , NITRITEUA , GLUCOSEUA , KETONEUA , BILIRUBINUA , UROBILINUA , REDSUBUA , WBCUAAUTO , RBCUAAUTO , EPITHUAAUTO , BACTUAAUTO , YEASTUAAUTO , SPERMUAAUTO , CASTUAAUTO , CRYSUAAUTO , MUCUSUAAUTO in the last 83329 hours. No results for input(s): [id number] in the last 98402 hours. IMAGING: No image results found. ASSESSMENT/PLAN: Orders Placed This Encounter XR Hand Bilat 3Vw or More XR Foot Bilat 3Vw or More C-REACTIVE PROTEIN (CRP) SED RATE AUTO (ESR) CYCLIC CITRUL PEPTIDE ANTIBODY IGG/IGA (CCP) QUANTIFERON TB-GOLD HEPATITIS C ANTIBODY RPR ICD-10-CM 1. Polyarthralgia Active M25.50 2. Rheumatoid factor positive R76.8 3. Fibromyalgia syndrome Active M79.7 4. History of IBS Z87.19 Polyarthralgia (Primary) Comments: Despite positive RF no current examination findings to confirm rheumatoid arthritis identified. Check CRP/ESR, anti-CCP and hand/foot xrays. Recheck 2 weeks. Orders: - C-REACTIVE PROTEIN (CRP) - SED RATE AUTO (ESR) - CYCLIC CITRUL PEPTIDE ANTIBODY IGG/IGA (CCP) - XR Hand Bilat 3Vw or More; Future - XR Foot Bilat 3Vw or More; Future Rheumatoid factor positive The finding of a positive rheumatoid factor of undetermined clinical significance (with low pre-test probability for rheumatoid arthritis) without current history, examination findings, and/or additional available laboratory results for review, regarding this finding being consistent with the specific diagnosis of rheumatoid arthritis by [employer] classification criteria nor seems to suggest any other active inflammatory polyarthropathy at this time. Rheumatoid factors are nonspecific in nature and can be seen in otherwise healthy individuals and generally are more frequently found in older age groups. Rheumatoid factor can be seen as an immunologic phenomena in patients with chronic infections (e.g. tuberculosis, syphilis, hepatitis C), chronic gingivitis and periodontal disease, cryoglobulinemia, and pulmonary fibrosis. Additional evaluation should be consideredin clinically indicated cases. - XR Hand Bilat 3Vw or More; Future - XR Foot Bilat 3Vw or More; Future - QUANTIFERON TB-GOLD - HEPATITIS C ANTIBODY - RPR; Future Fibromyalgia syndrome Comments: Multiple tender points identified that might explain both joint pain, burning upper back pain and hand/finger numbness/tingling (reports negative NCV testing). Might be a good candidate to consider use of duloxetine that might be effective for fibromyalgia related pain symptoms but also might benefit IBS reported symptoms (in place of buspirone). I discussed the approach to the clinical diagnosis of a fibromyalgia syndrome as a cause for chronic musculoskeletal pain. I do not provide long-term care for the treatment of fibromyalgia and I have suggested that Sarahy Yao follow-up with her primary care provider/physician for any additional needed long-term treatment approach recommendations that may be of benefit for relief of symptoms related to this non-inflammatory hypersensitivity pain [...] cure at this time. History of IBS Return in about 2 weeks (around 06/13/2024). Thank you for allowing me to participate in the rheumatologic care of your pleasant patient. Please do not hesitate to contact me if I can provide any additional follow-up information that you may require. Rolando Castro D.O., [facility] Rheumatology [address] [place] [address] The total time spent today in the visit with the patient for this initial encounter, including performing chart preparation, review of available data, and documentation, patient education, not related to any procedure or preventative visit services was 50 minutes. Portions of the record was created with voice recognition software.Variances in soils analyst may occur Rolando Castro DO 05/30/2024 5:02 PM documented in this encounter Plan of Treatment Scheduled Orders Name Type Priority Associated Diagnoses Orde r Schedule RPR Lab Routine Rheumatoid factor positive 1 Occurrences starting 05/30/2024 until 06/24/2025 documented as of this encounter Procedures Procedure Name Priority Date/Time Associated Diagnosis Comments CYCLIC CITRUL PEPTIDE ANTIBODY IGG/IGA (CCP) Routine 06/06/2024 2:30 PM CDT Polyarthralgia C-REACTIVE PROTEIN Routine 06/06/2024 2: 30 PM CDT Polyarthralgia QUANTIFERON TB-GOLD Routine 06/06/2024 2 :30 PM CDT Rheumatoid factor positive ERYTHROCYTE SEDIMENTATION RATE Routine 06/06/2024 2:30 PM CDT Polyarthralgia HEPATITIS C ANTIBODY Routine 06/06/2024 2:30 PM CDT Rheumatoid factor positive documented in this encounter Results * HEPATITIS C ANTIBODY (06/06/2024 2:30 PM [...] 7:12 AM CDT Performed at: ??01 - [facility] ??[id number] Chair Inspector: Edmundo Dias PhD, Phone: ??[phone] Rolandolaura Castro LAB - CHEMISTRY ROQUE WALDRON [facility] INSURANCE BILL [address] [place] [address] * QUANTIFERON TB-GOLD (06/06/2024 2:30 PM CDT) QuantiFERON Incubation Incubation performed. [facility] INSURANCE BILL QuantiFERON-TB Gold Plus Negative Negative [facility] INSURANCE BILL Comment: No response to M tuberculosis antigens detected. Infection with M tuberculosis is unlikely, but high risk individuals should be considered for additional testing (ATS/IDSA/CDC Clinical Practice Guidelines, 2017). The reference range is an Antigen minus Nil result of <0.35 IU/mL. Chemiluminescence immunoassay methodology Performed at: ??01 - [facility] ??[id number] Chair Inspector: Edmundo Dias PhD, Phone: ??[phone] QuantiFERON Criteria Comment [facility] INSURANCE BILL Comment: [...] BILL QuantiFERON TB2 Ag Value 0.00 IU/mL [facility] INSURANCE BILL QuantiFERON Nil Value 0.00 IU/mL [facility] INSURANCE BILL QuantiFERON Mitogen Value >10.00 IU/mL [facility] INSURANCE BILL Blood BLOOD SPECIMEN / Unknown 06/06/2024 2:30 PM CDT 06/06/2024 Narrative [facility] INSURANCE BILL - 06/08/2024 11:07 PM CDT Performed at: ??01 - [facility] [address] [place], [place] ??[id number] Chair Inspector: Edmundo Dias PhD, Phone: ??[phone] Rolando Castro DO LAB - CHEMISTRY ROQUE WALDRON [facility] INSURANCE BILL [address] [place] [address] * CYCLIC CITRUL PEPTIDE ANTIBODY IGG/IGA (CCP) (06/06/2024 2:30 PM CDT) CCP Antibodies IgG/IgA 8 0 - 19 units [facility] INSURANCE BILL Comment: ?Negative ? <20 ?Weak positive ?20 - 39 ?Moderate positive ??40 - 59 ?Strong positive ?>59 Blood BLOOD SPECIMEN / Unknown 06/06/2024 2:30 PM CDT 06/06/2024 Narrative [facility] INSURANCE BILL - 06/07/2024 1:10 PM CDT Performed at: ??01 - [facility] ??[id number] Chair Inspector: Edmundo Dias PhD, Phone: ??[phone] Rolando Castro DO LAB - SEROLOGY ORDER KIRA Performing Organization Address [facility] de Phone Number [facility] INSURANCE BILL [address] [place] [address] * SED RATE AUTO (ESR) (06/06/2024 2:30 PM CDT) Erythrocyte Sedimentation Rate Westergren 2 0 - 40 mm/hr [facility] INSURANCE BILL Blood BLOOD SPECIMEN / Unknown 06/06/2024 2:30 PM CDT 06/06/2024 Narrative [facility] INSURANCE BILL - 06/07/2024 7:12 AM CDT Performed at: ??01 - [facility] ??[id number] Chair Inspector: Edmundo Dias PhD, Phone: ??[phone] Rolando Castro DO LAB - HEMATOLOGY ORD ERABLES Performing Organization Address [facility] de Phone Number [facility] INSURANCE BILL [address] [place] [address] * C-REACTIVE PROTEIN (CRP) (06/06/2024 2:30 PM CDT) C-Reactive Protein <1 0 - 10 mg/L [facility] INSURANCE BILL Blood BLOOD SPECIMEN / Unknown 06/06/2024 2:30 PM CDT 06/06/2024 Narrative [facility] INSURANCE BILL - 06/07/2024 1:10 PM CDT Performed at: ??01 - [facility] [address] [place], [place] ??[id number] Chair Inspector: Edmundo Dias PhD, Phone: ??[phone] Rolando Castro DO LAB - CHEMISTRY ROQUE Ortiz Organization Address City/State/ZIP Co de Phone Number [facility] INSURANCE BILL [address] [place] [address] * XR Foot Bilat 3Vw or More [...] Rolando Castro DO DIAGNOSTIC IMAGING O RDERABLES documented in this encounter Visit Diagnoses Diagnosis Polyarthralgia- Primary Pain in joint, multiple sites Rheumatoid factor positive Other and unspecified nonspecific immunological findings Fibromyalgia syndrome Mylagia and myositis, unspecified History of IBS Personal history of other diseases of digestive system Polyarthralgia Pain in joint, multiple sites Rheumatoid factor positive Other and unspecified nonspecific immunological findings documented in this encounter
--- OUTSIDE RECORDS SUMMARY | 2024-08-16 04:29 | XMS_ITS | Encounter Summary ---
Author Organization [employer] Care Team Providers Care Tumbler Machine Operator Helper Name Role Phone Parmjit Dai MD Primary Care Provider [phone] Jazmine Kulkarni MD Unavailable + [phone] Encounter Details Date Type Department Care Team (Latest Contact Info) Description 08/28/2023 Travel Social History Tobacco Use Types Packs/Day [...] on filedocumented in this encounter Care Teams Tumbler Machine Operator Helper Relationship Specialty Start Date End Date Parmjit Dai MD [address] [place] [address] [address] [place] [address] PCP - General Family Medicine 05/21/22 Jazmine Kulkarni MD [address] [place] [address] [address] [place] [address] Family Medicine 05/21/22 documented as of this encounter
--- OUTSIDE RECORDS SUMMARY | 2024-08-16 04:29 | XMS_ITS | Encounter Summary ---
Author Organization [email or web address] Care Team Providers Care Front Desk Attendant Name Role Phone Parmjit Dai MD Primary Care Provider [phone] Jazmine Kulkarni MD Unavailable + [phone] Encounter Details Date Type Department Care Team (Latest Contact Info) Description 10/16/2023 Travel Social History Tobacco Use Types Packs/Day Years Used Date Smoking Tobacco: Former Cigarettes 0.5 10 1 990 - 1999 Smokeless Tobacco: Never Comments No Sex and Gender Information Value Date Recorded Sex Assigned at Not on file Legal Sex Female 1:04 PM CDT Gender Identity Not on file Sexual Orientation Not on file documented as of this encounter Plan of Treatment Not on file documented as of this encounter Visit Diagnoses Not on filedocumented in this encounter Care Teams Front Desk Attendant Relationship Specialty Start Date End Date Parmjit Dai MD [address] [place] [address] [address] [place] [address] PCP - General Family Medicine 05/21/22 Jazmine Kulkarni MD [address] [place] [address] [address] [place] [place] [address] Family Medicine 05/21/22 documented as of this encounter
--- OUTSIDE RECORDS SUMMARY | 2024-08-16 04:29 | XMS_ITS | Encounter Summary ---
Author Organization [employer] Care Team Providers Care Box Estimator Name Role Phone Parmjit Dai MD Primary Care Provider [phone] Jazmine Kulkarni MD Unavailable + [phone] Encounter Details Date Type Department Care Team (Latest Contact Info) Description 08/14/2023 Travel Social History Tobacco Use Types Packs/Day [...] on filedocumented in this encounter Care Teams Box Estimator Relationship Specialty Start Date End Date Parmjit Dai MD [address] [place] [address] [address] [place] [address] PCP - General Family Medicine 05/21/22 Jazmine Kulkarni MD [address] [place] [address] [address] [place] [address] Family Medicine 05/21/22 documented as of this encounter
--- OUTSIDE RECORDS SUMMARY | 2024-08-16 04:29 | XMS_ITS | Encounter Summary ---
Author Organization [facility] Address [address] [place] [address] Phone Care Team Providers Care Blueprinting And Photocopy Supervisor Name Role Phone Parmjit Dai MD Primary Care Provider [phone] Jazmine Kulkarni MD Unavailable + [phone] Reason for Visit * Episode Based Medications (Routine) - Closed Specialty Diagnoses / Procedures Referred By Loreta t Referred To Contact Diagnoses Iron deficiency anemia, unspecified iron deficiency anemia type Milla Brenner [address], [address] [place] [address] Phone: tel: fax: [facility] [address] [place] [address] Phone: tel: fax: Referral ID Status Reason Start Date Expiration Date Visits Re quested Visits Authorized [id number] Closed 08/14/2023 4 4 Encounter Details Date Type Department Care Team (Late st Contact Info) Description 08/28/2023 9:00 AM TIME BUYER Clinical Support [facility] [address] [place] [id number] Ramone Soto MD [address] [place] [address] Iron deficiency anemia, unspecified iron [...] Sign Reading Time Taken Comments Blood Pressure 121/76 08/28/2023 9:13 AM TIME BUYER Pulse 78 08/28/2023 9:13 AM TIME BUYER Temperature 36.2 ??C (97.2 ??F) 08/28/2023 9:13 AM CS T Respiratory Rate 16 08/28/2023 9:13 AM TIME BUYER Oxygen Saturation - - Inhaled Oxygen Concentration - - Weight - - Height - - Body Mass Index - - documented in this encounter Miscellaneous Notes * Interdisciplinary - Mary Hawk RN - 08/28/2023 9:00 AM CST Pt ambulated into treatment room in stable condition. Vitals obtained. IV started x1 attempt. Flushed with ease and blood return noted. Medication side effects and intended effects reviewed with pt. Pt medicated per MD orders. Pt tolerated well. IV flushed and removed. Gauze and coban to site. Pt discharged in stable condition. BUYER documented in this encounter Plan of Treatment [...] 300 mg, Intravenous, ONCE, 1 dose, On Thu08/28/23 at 1000, Administer over 90 Minutes, Monitor patient for 30 minutes after infusion completedIndications:Iron deficiency anemia, unspecified iron deficiency anemia type New Bag 08/28/2023 9:39 AM TIME BUYER 300 mg 166.7 mL/hr documented in this encounter Care Teams Blueprinting And Photocopy Supervisor Relationship Specialty Start Date End Date Parmjit Dai MD [address] [place] [address] [place] [address] PCP - General Family Medicine 05/21/22 Jazmine Kulkarni MD [address] [place] [address] [place] [address] Family Medicine 05/21/22 documented as of this encounter
--- OUTSIDE RECORDS SUMMARY | 2024-08-16 04:29 | XMS_ITS | Encounter Summary ---
Author Organization [facility] Address [address] [place] [address] Phone Care Team Providers Care Mixed Signal Design Engineer Name Role Phone Parmjit Dai MD Primary Care Provider [phone] Jazmine Kulkarni MD Unavailable + [phone] Reason for Visit * Episode Based Medications (Routine) - Closed Specialty Diagnoses / Procedures Referred By Loreta t Referred To Contact Diagnoses Iron deficiency anemia, unspecified iron deficiency anemia type Milla Brenner Betina, [address] [place] [address] Phone: tel: fax: [facility] [address] [place] [address] Phone: tel: fax: Referral ID Status Reason Start Date Expiration Date Visits Re quested Visits Authorized [id number] Closed 08/14/2023 4 4 Encounter Details Date Type Department Care Team (Late st Contact Info) Description 09/01/2023 9:00 AM SECOND FACING BASTER Clinical Support [facility] [address] [place] [id number] Ramone Soto MD [address] [place] [address] Iron deficiency anemia, unspecified iron [...] Sign Reading Time Taken Comments Blood Pressure 119/78 09/01/2023 9:17 AM SECOND FACING BASTER Pulse 69 09/01/2023 9:17 AM SECOND FACING BASTER Temperature 36.3 ??C (97.4 ??F) 09/01/2023 9:17 AM CS T Respiratory Rate 16 09/01/2023 9:17 AM SECOND FACING BASTER Oxygen Saturation - - Inhaled Oxygen Concentration - - Weight - - Height - - Body Mass Index - - documented in this encounter Miscellaneous Notes * Interdisciplinary - Mary Hawk RN - 09/01/2023 9:00 AM CST Pt ambulated into treatment room in stable condition. Vitals obtained. IV started x1 attempt. Flushed with ease and blood return noted. Medication side effects and intended effects reviewed with pt. Pt medicated per MD orders. Pt tolerated well. IV flushed and removed. Gauze and coban to site. Pt discharged in stable condition. ND FACING BASTER documented in this encounter Plan of Treatment [...] 300 mg, Intravenous, ONCE, 1 dose, On Thu09/01/23 at 0930, Administer over 90 Minutes, Monitor patient for 30 minutes after infusion completedIndications:Iron deficiency anemia, unspecified iron deficiency anemia type New Bag 09/01/2023 9:26 AM SECOND FACING BASTER 300 mg 166.7 mL/hr documented in this encounter Care Teams Mixed Signal Design Engineer Relationship Specialty Start Date End Date Parmjit Dai MD [address] [place] [address] [place] [address] PCP - General Family Medicine 05/21/22 Jazmine Kulkarni MD [address] [place] [address] [place] [address] Family Medicine 05/21/22 documented as of this encounter
--- OUTSIDE RECORDS SUMMARY | 2024-08-16 04:29 | XMS_ITS | Encounter Summary ---
Author Organization [facility] Address [address] [facility] [place] [address] Phone Care Team Providers Care Mva Reactor Operator Name Role Phone Parmjit Dai MD Primary Care Provider Jazmine Kulkarni MD Unavailable [phone] Encounter Details Date Type Department Care Team (Late st Contact Info) Description 08/14/2023 Telephone [facility] [address] [place] [id number] Milla Brenner Betina, [address] [place] [address] Social History Tobacco Use Types Packs/Day Years Used Date Smoking Tobacco: Former Cigarettes 0.5 10 1 990 - 2000 Smokeless Tobacco: Never Comments Unknown Sex and Gender Information Value Date Recorded Sex Assigned at Not on file Legal Sex Female 1:04 PM CDT Gender Identity Not on file Sexual Orientation Not on file documented as of this encounter Miscellaneous Notes * Telephone Encounter - Tricia Carpio RN - 08/14/2023 1:24 PM DATABASE DEVELOPMENT PROJECT MANAGER Pt called and informed of lab results and Milla's recommendations. Educated on the intended effects and side effects of infusion, verbalized understanding. Appts made. BASE DEVELOPMENT PROJECT MANAGER * Telephone Encounter - Tricia Carpio RN - 08/14/2023 1:18 PM DATABASE DEVELOPMENT PROJECT MANAGER ----- Message from HUMERA Kan sent at 08/14/2023 1:04 PM DATABASE DEVELOPMENT PROJECT MANAGER ----- Please advise iron saturation is 9%. Recommend Venofer 300 mg for 4 infusions. Reschedule follow-upfor approximate 2 months. New labs 6 weeks after last infusion. BASE DEVELOPMENT PROJECT MANAGER documented in this encounter Plan of Treatment Not on file documented as of this encounter Visit Diagnoses Not on filedocumented in this encounter Care Teams Mva Reactor Operator Relationship Specialty Start Date End Date Parmjit Dai MD [address] [place] [address] PCP - General Family Medicine 05/21/22 Jazmine Kulkarni MD [address] [place] [address] [address] [place] [place] [address] Family Medicine 05/21/22 documented as of this encounter
--- OUTSIDE RECORDS SUMMARY | 2024-08-16 04:29 | XMS_ITS | Patient Health Summary ---
Author Organization [facility] Address [address] [place] [address] Care Team Providers Care Route Sales Person Name Role Phone Mandeep Pennington DO Primary Care Provider [phone] [facility],non-owned Affiliates and Associated Physician Practices is amultiple site organization consisting of ambulatory clinics and hospital sitesin [place], [place], [place] and [place]. This disclosure is being madepursuant to the Care Everywhere program and may not contain all information available regarding this patient. Last updated 18.[facility] Allergies * Azithromycin(Other,GI Discomfort) -Low Criticality * Metoclopramide(Other) -Low Criticality * Prochlorperazine(Other,Unknown) -Low Criticality * Promethazine(Other) -Low Criticality Medications * Be aware that medications may not be up to date on this document. Alwaysverify current medications with the patient. * Acetaminophen Extra Strength 500 MG TABS(Started 07/18/2023) Take 1 (one) tablet by mouth every 6 hours as needed For pain. * amitriptyline (Elavil) 10 MG tablet Take 1 (one) tablet by mouth * apixaban (Eliquis) 5 MG tablet Take 1 (one) tablet by mouth 2 times daily * atorvastatin (Lipitor) 40 MG tablet Take 1 (one) tablet by mouth at bedtime * busPIRone (Buspar) 10 MG tablet(Started 05/06/2024) 1 (one) tablet * dicyclomine (Bentyl) 20 MG tablet(Started 04/17/2023) Take 1 (one) tablet by mouth * famotidine (Pepcid) 20 MG tablet Take 1 (one) tablet by mouth once daily as needed * flecainide (Tambocor) 100 MG tablet TAKE 1 TABLET BY MOUTH TWICE DAILY. START TAKING SATURDAY 07/07 * meclizine (Antivert) 12.5 MG tablet(Started 10/16/2023) Take 1 (one) tablet by mouth 3 times daily as needed * metoprolol succinate XL 24hr (Toprol XL) 25 MG tablet Take 1 (one) tablet by mouth once daily * ondansetron, disintegrating, (Zofran ODT) 4 MG tablet(Started 07/18/2023) DISSOLVE 1 TABLET ON THE TONGUE EVERY 8 HOURS NEEDED FOR NAUSEA OR VOMITING * pantoprazole EC (Protonix) 40 MG tablet(Started 05/13/2024) Take 1 (one) tablet by mouth 2 times daily * SUMAtriptan Succinate 6 MG/0.5ML(Started 01/04/2024) Active Problems Problem Noted Date Diagnosed Date Polyarthralgia 05/30/2024 Rheumatoid factor positive 05/30/2024 Fibromyalgia syndrome 05/30/2024 History of IBS 05/30/2024 Social History Tobacco [...] Mass Index 24.72 06/30/2024 9:18 AM CDT Procedures * HEPATITIS C ANTIBODY(Performed 06/06/2024) Performed for Rheumatoid factor positive * QUANTIFERON TB-GOLD(Performed 06/06/2024) Performed for Rheumatoid factor positive * CYCLIC CITRUL PEPTIDE ANTIBODY IGG/IGA (CCP)(Performed 06/06/2024) Performed for Polyarthralgia * ERYTHROCYTE SEDIMENTATION RATE(Performed 06/06/2024) Performed for Polyarthralgia * C-REACTIVE PROTEIN(Performed 06/06/2024) Performed for Polyarthralgia * XR FOOT BILAT 3VW OR MORE(Performed 06/06/2024) Performed for Polyarthralgia, Rheumatoid factor positive * XR HAND BILAT 3VW OR MORE(Performed 06/06/2024) Performed for Polyarthralgia, Rheumatoid factor positive Results * CYCLIC CITRUL PEPTIDE ANTIBODY IGG/IGA (CCP) (06/06/2024 2:30 PM CDT) CCP Antibodies IgG/IgA 8 0 - 19 units [facility] INSURANCE BILL Comment: ?Negative ? <20 ?Weak positive ?20 - 39 ?Moderate positive ??40 - 59 ?Strong positive ?>59 Blood BLOOD SPECIMEN / Unknown 06/06/2024 2:30 PM CDT 06/06/2024 Narrative [facility] INSURANCE BILL - 06/07/2024 1:10 PM CDT Performed at: ??01 - [facility] [place] [address] [place], [place] ??[id number] Pier Hand: Edmundo Dias PhD, Phone: ??[phone] Rolando Castro DO LAB - SEROLOGY ORDER KIRA [facility] INSURANCE BILL [address] [place] [address] * C-REACTIVE PROTEIN (CRP) (06/06/2024 2:30 PM CDT) [facility] C-Reactive Protein <1 0 - 10 mg/L [facility] INSURANCE BILL Blood BLOOD SPECIMEN / Unknown 06/06/2024 2:30 PM CDT 06/06/2024 Narrative [facility] INSURANCE BILL - 06/07/2024 1:10 PM CDT Performed at: ??01 - [address] ??[id number] Pier Hand: Edmundo Dias PhD, Phone: ??[phone] Rolando Castro DO LAB - CHEMISTRY ROQUE WALDRON [facility] INSURANCE BILL [address] [place] [address] * QUANTIFERON TB-GOLD (06/06/2024 2:30 PM CDT) [facility] QuantiFERON Incubation Incubation performed. [facility] INSURANCE BILL QuantiFERON-TB Gold Plus Negative Negative [facility] INSURANCE BILL Comment: No response to M tuberculosis antigens detected. Infection with M tuberculosis is unlikely, but high risk individuals should be considered for additional testing (ATS/IDSA/CDC Clinical Practice Guidelines, 2017). The reference range is an Antigen minus Nil result of <0.35 IU/mL. Chemiluminescence immunoassay methodology Performed at: ??[address] - [address] ??[id number] Pier Hand: Edmundo Dias PhD, Phone: ??[phone] QuantiFERON Criteria Comment [facility] INSURANCE BILL Comment: [...] test. QuantiFERON TB1 Ag Value 0.00 IU/mL [facility] INSURANCE BILL QuantiFERON TB2 Ag Value 0.00 IU/mL [facility] INSURANCE BILL QuantiFERON Nil Value 0.00 IU/mL [facility] INSURANCE BILL QuantiFERON Mitogen Value >10.00 IU/mL [facility] INSURANCE BILL Blood BLOOD SPECIMEN / Unknown 06/06/2024 2:30 PM CDT 06/06/2024 Narrative [facility] INSURANCE BILL - 06/08/2024 11:07 PM CDT Performed at: ??01 - [facility] ??[id number] Pier Hand: Edmundo Dias PhD, Phone: ??[phone] Rolando Castro DO LAB - CHEMISTRY ORDE RABLES Performing Organization Address [place] Co de Phone Number [facility] INSURANCE BILL [address] [place] [address] * SED RATE AUTO (ESR) (06/06/2024 2:30 PM CDT) Erythrocyte Sedimentation Rate Westergren 2 0 - 40 mm/hr [facility] INSURANCE BILL Blood BLOOD SPECIMEN / Unknown 06/06/2024 2:30 PM CDT 06/06/2024 Narrative [facility] INSURANCE BILL - 06/07/2024 7:12 AM CDT Performed at: ??01 - [facility] ??[id number] Pier Hand: Edmundo Dias PhD, Phone: ??[phone] Rolando Castro DO LAB - HEMATOLOGY ORD ERABLES Performing Organization Address [facility] Co de Phone Number [facility] INSURANCE BILL [address] [place] [address] * HEPATITIS C ANTIBODY (06/06/2024 2:30 PM [...] 7:12 AM CDT Performed at: ??01 - [facility] [address] [facility] [place], [place] ??[id number] Pier Hand: Edmundo Dias PhD, Phone: ??[phone] Rolando Castro LAB - CHEMISTRY ROQUE WALDRON [facility] INSURANCE BILL [address] [place] [address] * XR Foot Bilat 3Vw or More [...] Rolando Castro DO DIAGNOSTIC IMAGING O RDERABLES Care Teams Route Sales Person Relationship Specialty Start Date End Date Mandeep Pennington DO [address] [place] [address] PCP - General Internal Medicine 06/30/24
--- OUTSIDE RECORDS SUMMARY | 2024-08-16 04:29 | XMS_ITS | Encounter Summary ---
Author Organization [facility] Care Team Providers Care Braille Coder Name Role Phone Parmjit Dai MD Primary Care Provider [phone] Jazmine Kulkarni MD Unavailable + [phone] Mir Spencer MD Unavailable Encounter Details Date Type Department Care Team (Latest Contact Info) Description 02/10/2024 Travel Social History Tobacco Use Types Packs/Day [...] on filedocumented in this encounter Care Teams Braille Coder Relationship Specialty Start Date End Date Parmjit Dai MD [address] [place] [address] [address] [place] [address] PCP - General Family Medicine 05/21/22 Jazmine Kulkarni MD [address] [place] [address] [address] [place] [place] [address] Family Medicine 05/21/22 Mir Spencer MD [address] [facility], [address] [address] Consulting Physician Urology 10/29/23 documented as of this encounter
--- OUTSIDE RECORDS SUMMARY | 2024-08-16 04:29 | XMS_ITS | Encounter Summary ---
Author Organization [facility] Address [address] [facility], [place] [address] Phone Care Team Providers Care Sodium Chlorite Operator Name Role Phone Parmjit Dai MD Primary Care Provider [phone] Jazmine Kulkarni MD Unavailable + [phone] Encounter Details Date Type Department Care Team (Late st Contact Info) Description 08/14/2023 10:00 AM UNIVERSAL BANKER Lab [facility] [address] [place] [address] Milla Brenner PAC [address] [place] [address] Anemia, unspecified type Discharge Disposition: Discharged to home or Selfcare [...] on file documented as of this encounter Progress Notes * Milla Brenner PAC - 08/14/2023 10:00 AM CST Please advise iron saturation is 9%. Recommend Venofer 300 mg for 4 infusions. Reschedule follow-upfor approximate 2 months. New labs 6 weeks after last infusion. ERSAL BANKER documented in this encounter Plan of Treatment Not on file documented as of this encounter Procedures Procedure Name Priority Date/Time Associated Diagnosis Comments IRON,TRANSFERN,CALC.TIB C,%SAT Routine 08/14/2023 10:07 AM UNIVERSAL BANKER Anemia, unspecified type CBC WITH AUTO DIFFERENTIAL Routine 08/14/2023 10:07 AM UNIVERSAL BANKER Anemia, unspecified type FREE KAPPA & LAMBDA LIGHT CHAINS SERUM Routine 08/14/2023 10:07 AM UNIVERSAL BANKER Anemia, unspecified type VITAMIN B12 Routine 08/14/2023 10:07 AM UNIVERSAL BANKER Anemia, unspecified type RETICULOCYTE COUNT (RETIC) Routine 08/14/2023 10:07 AM UNIVERSAL BANKER Anemia, unspecified type LACTATE DEHYDROGENASE (LD) Routine 08/14/2023 10:07 AM UNIVERSAL BANKER Anemia, unspecified type IMMUNOFIXATION W/ ELECTROPHORESIS SERUM Routine 08/14/2023 10:07 AM UNIVERSAL BANKER Anemia, unspecified type FOLIC ACID (FOLATE) Routine 08/14/2023 1 0:07 AM UNIVERSAL BANKER Anemia, unspecified type FERRITIN Routine 08/14/2023 10:07 AM UNIVERSAL BANKER Anemia, unspecified type CMP (COMPREHENSIVE METABOLIC PANEL) Routine 08/14/2023 10:07 AM UNIVERSAL BANKER Anemia, unspecified type COMPLETE BLOOD COUNT (CBC) WITH DIFF Routine 08/14/2023 10:07 AM UNIVERSAL BANKER Anemia, unspecified type documented in this encounter Results * (ABNORMAL) CBC WITH AUTO DIFFERENTIAL (08/14/2023 10:07 AM UNIVERSAL BANKER) WBC 6.72 4.00 - 12.00 10(3)/mcL 08/14/2023 11:45 AM UNIVERSAL BANKER [facility] RBC 3.91 3.80 - 5.30 10(6)/[facility] 08/14/2023 11:45 AM [facility] HEMOGLOBIN (HGB) 10.0(L) 12.0 - 15.8 g/dL 08/14/2023 11:45 AM [facility] HEMATOCRIT (HCT) 32.7(L) 36.0 - 47.0 % 08/14/2023 11:45 AM [facility] MCV 83.6 82.0 - 96.0 fL 08/14/2023 11:45 AM [facility] MCH 25.6(L) 26.0 - 34.0 pg 08/14/2023 11:45 AM [facility] MCHC 30.6(L) 31.0 - 36.0 g/dL 08/14/2023 11:45 AM [facility] PLATELET COUNT 362 140 - 440 10(3)/[facility] 08/14/2023 11:45 AM [facility] RDW 15.9(H) 11.8 - 15.5 % 08/14/2023 11:45 AM [facility] MPV 10.7 9.7 - 12.4 fL 08/14/2023 11:45 AM [facility] NEUTROPHILS 51.9 47.0 - 73.0 % 08/14/2023 11:45 AM [facility] LYMPHOCYTES 30.7 18.0 - 42.0 % 08/14/2023 11:45 AM [facility] MONOCYTES 14.3(H) 4.0 - 12.0 % 08/14/2023 11:45 AM [facility] EOSINOPHILS 2.4 0.0 - 5.0 % 08/14/2023 11:45 AM [facility] BASOPHILS 0.7 0.0 - 1.0 % 08/14/2023 11:45 AM [facility] ABSOLUTE NEUTROPHILS 3.49 1.60 - 7.70 10(3)/mcL 08/14/2023 11:45 AM [facility] ABSOLUTE LYMPHOCYTES 2.06 1.30 - 3.20 10(3)/mcL 08/14/2023 11:45 AM UNIVERSAL BANKER [facility] ABSOLUTE MONOCYTES 0.96 0.20 - 1.00 10(3)/mcL 08/14/2023 11:45 AM UNIVERSAL BANKER [facility] ABSOLUTE EOSINOPHIL 0.16 0.00 - 0.40 10(3)/mcL 08/14/2023 11:45 AM UNIVERSAL BANKER [facility] ABSOLUTE BASOPHILS 0.05 0.00 - 0.10 10(3)/[facility] 08/14/2023 11:45 AM UNIVERSAL BANKER [facility] NRBC PER 100 WBC 0 08/14/20 11:45 AM UNIVERSAL BANKER [facility] Blood Venipuncture / Unknown 08/14/2023 10:07 AM UNIVERSAL BANKER 08/14/2023 11:38 AM UNIVERSAL BANKER [facility] HEMATOLOGY ORDERABLES Fin al Result Performing Organization Address [facility]/State/ZIP Co de Phone Number [facility] [address] [place] [address] * (ABNORMAL) IRON,TRANSFERN,CALC.TIBC,%SAT (08/14/2023 10:07 AM UNIVERSAL BANKER) IRON 42 25 - 156 mcg/dL 08/14/2023 12:24 PM UNIVERSAL BANKER [facility] TRANSFERRIN 362 180 - 382 mg/dL 08/14/2023 12:24 PM UNIVERSAL BANKER [facility] TIBC, CALCULATED 453 265 - 497 mcg/dL 08/14/2023 12:24 PM UNIVERSAL BANKER [facility] % SATURATION * 9(L) 15 - 62 % 08/14/2023 12:24 PM UNIVERSAL BANKER [facility] Blood Venipuncture / Unknown 08/14/2023 10:07 AM UNIVERSAL BANKER 08/14/2023 11:38 AM UNIVERSAL BANKER [facility] CHEMISTRY ORDERABLES Cristy l Result [facility] [address] [place] [address] * (ABNORMAL) IMMUNOFIXATION W/ ELECTROPHORESIS SERUM (08/14/2023 10:07 AM UNIVERSAL BANKER) TOTAL PROTEIN 7.2 6.3 - 8.2 g/dL 08/19/2023 11:40 AM [facility] % ALBUMIN 54.4(L) 55.8 - 66.7 % 08/19/2023 11:40 AM [facility] ALBUMIN SERUM 3.9 2.5 - 5.4 g/dL 08/19/2023 11:40 AM [facility] % ALPHA 1 GLOBULIN 3.3 2.9 - 4.9 % 08/19/2023 11:40 AM [facility] ALPHA 1 0.2 0.2 - 0.4 g/dL 08/19/2023 11:40 AM [facility] % ALPHA 2 GLOBULIN 9.9 7.1 - 11.8 % 08/19/2023 11:40 AM [facility] ALPHA 2 0.7 0.5 - 1.0 g/dL 08/19/2023 11:40 AM [facility] % BETA 14.8(H) 8.4 - 13.1 % 08/19/2023 11:40 AM [facility] BETA-GLOBULIN 1.1 0.5 - 1.1 g/dL 08/19/2023 11:40 AM [facility] % GAMMA GLOBULIN 17.6 11.1 - 18.8 % 08/19/2023 11:40 AM [facility] GAMMA 1.3 0.7 - 1.5 g/dL 08/19/2023 11:40 AM [facility] IMMUNOGLOBULIN G 1,197 552 - 1,631 mg/dL 08/19/2023 11:40 AM [facility] IMMUNOGLOBULIN A 203 65 - 421 mg/dL 08/19/2023 11:40 AM [facility] IMMUNOGLOBULIN M 104 33 - 293 mg/dL 08/19/2023 11:40 AM UNIVERSAL BANKER [facility] INTERPRETATION SERUM No abnormal protein band is detected by serum protein electrophoresis. Serum immunofixation electrophoresis is negative for monoclonal immunoglobulins. Reviewed by Abdirahman Valentine, Ph.D. 08/19/2023 11:40 AM UNIVERSAL BANKER [facility] A/G RATIO, SERUM 1.2 08/19/20 11:40 AM UNIVERSAL BANKER [facility] Blood Venipuncture / Unknown 08/14/2023 10:07 AM UNIVERSAL BANKER 08/14/2023 11:37 AM UNIVERSAL BANKER Narrative [facility] - 08/19/2023 11:40 AM UNIVERSAL BANKER Reviewed by Emiliano Fulton M.D. [facility] PAC CHEMISTRY ORDERABLES Cristy l Result Performing Organization Address [facility] Co de Phone Number [facility] [address] [place] [address], [place] * (ABNORMAL) FREE KAPPA & LAMBDA LIGHT CHAINS SERUM (08/14/2023 10:07 AM UNIVERSAL BANKER) Pathologist [facility] Free Burgess Lt Chn 23.37(H) 3.30 - 19.40 mg/L 08/17/2023 11:03 AM UNIVERSAL BANKER [facility] Free Lambda Lt Chn 14.89 5.71 - 26.30 mg/L 08/17/2023 11:03 AM UNIVERSAL BANKER [facility] free angelo george ratio 1.57 0.26 - 1.65 08/17/2023 11:03 AM UNIVERSAL BANKER [facility] Blood Venipuncture / Unknown 08/14/2023 10:07 AM UNIVERSAL BANKER 08/14/2023 11:37 AM UNIVERSAL BANKER [facility] PAC CHEMISTRY ORDERABLES Cristy l Result Performing Organization Address [facility] Co de Phone Number [facility] [address] [place] [address], [place] * LACTATE DEHYDROGENASE (LD) (08/14/2023 10:07 AM UNIVERSAL BANKER) LDH 202 125 - 220 U/L 08/14/2023 12:24 PM UNIVERSAL BANKER [facility] Blood Venipuncture / Unknown 08/14/2023 10:07 AM UNIVERSAL BANKER 08/14/2023 11:38 AM UNIVERSAL BANKER [facility] PAC CHEMISTRY ORDERABLES Cristy l Result Performing Organization Address City/[facility]/ZIP Co de Phone Number [facility] [address] [place] [address] * RETICULOCYTE COUNT (RETIC) (08/14/2023 10:07 AM UNIVERSAL BANKER) RETICULOCYTES 0.7 0.5 - 2.0 % 08/14/2023 11:45 AM UNIVERSAL BANKER [facility] Blood Venipuncture / Unknown 08/14/2023 10:07 AM UNIVERSAL BANKER 08/14/2023 11:38 AM UNIVERSAL BANKER [facility] HEMATOLOGY ORDERABLES Fin al Result Performing Organization Address City/[facility]/ZIP Co de Phone Number [facility] [address] [place] [address] * VITAMIN B12 (08/14/2023 10:07 AM UNIVERSAL BANKER) VITAMIN B12 783 213 - 816 pg/mL 08/14/2023 12:57 PM UNIVERSAL BANKER [facility] Blood Venipuncture / Unknown 08/14/2023 10:07 AM UNIVERSAL BANKER 08/14/2023 11:37 AM UNIVERSAL BANKER [facility] PAC CHEMISTRY ORDERABLES Cristy l Result Performing Organization Address City/[facility]/ZIP Co de Phone Number [facility] [address] [place] [address] * CMP (COMPREHENSIVE METABOLIC PANEL) (08/14/2023 10:07 AM UNIVERSAL BANKER) SODIUM 144 136 - 145 mmol/L 08/14/2023 12:24 PM [facility] POTASSIUM 3.8 3.5 - 5.1 mmol/L 08/14/2023 12:24 PM [facility] CHLORIDE 106 98 - 107 mmol/L 08/14/2023 12:24 PM [facility] CO2, VENOUS 28 22 - 30 mmol/L 08/14/2023 12:24 PM [facility] ANION GAP 13.8 <18.0 mmol/L 08/14/2023 12:24 PM [facility] GLUCOSE 92 70 - 99 mg/dL 08/14/2023 12:24 PM [facility] BUN 11 10 - 20 mg/dL 08/14/2023 12:24 PM [facility] CREATININE, BLOOD 0.77 0.60 - 1.00 mg/dL 08/14/2023 12:24 PM [facility] BUN/CREATININE RATIO 14 12 - 20 ratio 08/14/2023 12:24 PM [facility] TOTAL PROTEIN 7.5 6.3 - 8.2 g/dL 08/14/2023 12:24 PM [facility] ALBUMIN 4.4 3.5 - 5.0 g/dL 08/14/2023 12:24 PM [facility] A/G RATIO 1.4 1.0 - 2.2 08/14/2023 12:24 PM [facility] CALCIUM 9.2 8.7 - 10.5 mg/dL 08/14/2023 12:24 PM [facility] T BILI 0.4 0.2 - 1.2 mg/dL 08/14/2023 12:24 PM [facility] SGOT (AST) 24 5 - 34 U/L 08/14/2023 12:24 PM [facility] SGPT (ALT) 15 0 - 55 U/L 08/14/2023 12:24 PM [facility] ALKALINE PHOSPHATASE 90 40 - 150 U/L 08/14/2023 12:24 PM UNIVERSAL BANKER [facility] IS THE PATIENT REQUIRED TO BE FASTING? No 08/14/2023 12:24 PM UNIVERSAL BANKER [facility] GFR, ESTIMATED >60 >=60 08/14/2023 12:24 PM UNIVERSAL BANKER [facility] Comment: Creatinine Clearance is the preferred criteria for selecting drug dose adjustments in renally impaired patients. ??The GFR is provided as additional pertinent clinical information. GFR is reported in mL/min/1.73 sq m. Calculation based on the Chronic Kidney Disease Epidemiology Collaboration (CKD- EPI) equation refit without adjustment for race. GFR, EST. >60 >=60 023 12:24 PM UNIVERSAL BANKER [facility] GFR, EST. NONAFRICAN >60 >=60 08/14/2023 12:24 PM UNIVERSAL BANKER [facility] Blood Venipuncture / Unknown 08/14/2023 10:07 AM UNIVERSAL BANKER 08/14/2023 11:38 AM UNIVERSAL BANKER [facility] PAC CHEMISTRY ORDERABLES Cristy l Result [facility] [address] [place] [address] * FERRITIN (08/14/2023 10:07 AM UNIVERSAL BANKER) FERRITIN 7 5 - 204 ng/mL 08/14/2023 12:35 PM UNIVERSAL BANKER [facility] Blood Venipuncture / Unknown 08/14/2023 10:07 AM UNIVERSAL BANKER 08/14/2023 11:38 AM UNIVERSAL BANKER [facility] PAC CHEMISTRY ORDERABLES Cristy l Result [facility] [address] [place] [address] * FOLIC ACID (FOLATE) (08/14/2023 10:07 AM UNIVERSAL BANKER) FOLATE 8.4 7.0 - 31.4 ng/mL 08/14/2023 12:57 PM UNIVERSAL BANKER [facility] IS THE PATIENT REQUIRED TO BE FASTING? No 08/14/2023 12:57 PM UNIVERSAL BANKER [facility] Blood Venipuncture / Unknown 08/14/2023 10:07 AM UNIVERSAL BANKER 08/14/2023 11:37 AM UNIVERSAL BANKER Milla Ayoubris PAC CHEMISTRY ORDERABLES Cristy l Result [facility] [address] [place] [address] documented in this encounter Visit Diagnoses Diagnosis Anemia, unspecified type documented in this encounter Care Teams Sodium Chlorite Operator Relationship Specialty Start Date End Date Parmjit Dai MD [address] [place] [address] [place] [address] PCP - General Family Medicine 05/21/22 Jazmine Kulkarni MD [address] [place] [address] [place] [address] Family Medicine 05/21/22 documented as of this encounter
--- OUTSIDE RECORDS SUMMARY | 2024-08-16 04:29 | XMS_ITS | Encounter Summary ---
Author Organization [facility] Address [address] [place] [address] Phone Care Team Providers Care Steamboat Pilot Name Role Phone Parmjit Dai MD Primary Care Provider [phone] Jazmine Kulkarni MD Unavailable + [phone] Mir Spencer MD Unavailable Reason for Visit * Reason Comments New Patient Kidney Cyst Flank Pain * Consult, Test & Initiate Treatment (Routine) - Open Specialty Diagnoses / Procedures Referred By Contac t Referred To Contact Urology Diagnoses Cyst of kidney, acquired Parmjit Dai MD [address] [place] [address] [facility] [address] [place] [address] Phone: tel: fax: [facility] [address] [place] [address] Phone: tel: fax: Referral ID Status Reason Start Date Expiration Date Visits Re quested Visits Authorized [id number] Open 1 1 Encounter Details Date Type Department Care Team (Late st Contact Info) Description 10/29/2023 8:00 AM CITY COUNCILMAN Office Visit [facility] [address] [place] [address] Mir Spencer MD [address] [facility] [address] [place] [address] Kidney cysts (Primary Dx); Overactive bladder Discharge Disposition: Discharged to home or Selfcare [...] Comments Blood Pressure 96/66 10/29/2023 8:05 AM CITY COUNCILMAN Pulse 52 10/29/2023 8:05 AM CITY COUNCILMAN Temperature - - Respiratory Rate 20 10/29/2023 8:05 AM CITY COUNCILMAN Oxygen Saturation - - Inhaled Oxygen Concentration - - Weight 56.7 kg (125 lb) 10/29/2023 8:05 AM CITY COUNCILMAN Height 162.6 cm (5' 4 ) 10/29/2023 8:05 AM CITY COUNCILMAN Body Mass Index 21.46 10/29/2023 8:05 AM CITY COUNCILMAN documented in this encounter Progress Notes * Mir Spencer MD - 10/29/2023 8:00 AM CST Images from the original note were not included. UROLOGY [facility] [address] [facility], [address] [place] [address] PHONE: FAX: Assessment & Plan Renal cysts -- 10/29/2023: Initial office visit. Bilateral back pain, ache, burning sensation. No dysuria, hematuria. Multiple CTs from [facility] reviewed personally. CT with 08/2023 = 13 mm right upper renal cysts, 5mm left renal cyst, no hydronephrosis or urolithiasis. I do not believe the cysts are causing any pain. Plan: Conservative management. Overactive bladder -- 10/29/2023: Urgency, urge incontinence, nocturia 1-2x. UA negative. Bladder scan = 54 mL. No caffeine intake. Patient not bothered by symptoms enough to try medication. Plan: Try timed voiding. Consider beta agonist or anticholinergic in the future. Follow-up as needed. Subjective: 10/29/2023 CT 08/2023 [facility] HPI: HPI: Sarahy Gill presents with a chief complaint of back pain and kidney cysts. The following portions of the patient's chart were reviewed in this encounter and updated as appropriate: ROS: Review of systems was negative, except as documented in HPI. Objective: VITALS: Resp 20 Ht 5' 4 (1.626 m) Wt 125 lb (56.7 kg) LMP 10/16/2012 BMI 21.46 kg/m?? PHYSICAL EXAM: GENERAL: Normal appearance. Patient is sitting in the exam room comfortably. EYES: Extraocular movements intact. No scleral icterus, normal conjuctiva. ENT: Normal external appearance; oral mucosa is pink and moist. NECK: Symmetrical, no visible thyromegaly or masses. RESPIRATORY: Unlabored respirations. Symmetric chest expansion. CARDIAC: Regular rate GASTROINTESTINAL: Abdomen soft, non-tender. No CVA tenderness PELVIC EXAM: Exam deferred Lab Results Component Value Date WBC 5.11 10/14/2023 HEMOGLOBIN 12.7 10/14/2023 HEMATOCRIT 40.0 10/14/2023 PLATELETCNT 306 10/14/2023 MCV 89.1 10/14/2023 Lab Results Component Value Date SODIUM 144 08/14/2023 POTASSIUM 3.8 08/14/2023 CHLORIDE 106 08/14/2023 CO2VEN 28 08/14/2023 ANIONGAP 13.8 08/14/2023 GLUCOSE 92 08/14/2023 BUN 11 08/14/2023 CREATININE 0.77 08/14/2023 BCRATIO8 14 08/14/2023 TOTALPROTEIN 7.5 08/14/2023 TOTALPROTEIN 7.2 08/14/2023 ALBUMIN 4.4 08/14/2023 AGRATIO 1.2 08/14/2023 CALCIUM 9.2 08/14/2023 TBIL 0.4 08/14/2023 SGOTAST 24 08/14/2023 SGPTALT 15 08/14/2023 ALKALINEPHO 90 08/14/2023 GFRNA >60 08/14/2023 GFRA >60 08/14/2023 No results found for this or any previous visit. No results found for: TESTOSTTTL No results found for this or any previous visit from the past [address]. [address] ABDOMEN PELVIS W/ CONTRAST 09/19/2023 Narrative EXAM DESCRIPTION: CT ABDOMEN PELVIS W CONTRAST REASON FOR STUDY: Abdominal pain, acute, nonlocalized, Pain Pt had appendix removed ten days ago and now having numbness and burning sensations down both legs other surgery hx: GB TECHNIQUE: CT scan of the abdomen and pelvis performed with intravenous and without oral contrast using helical scanning technique with dynamic intravenous contrast injection. Reconstructed coronal and sagittal MPR images reviewed. All images stored on PACS. Automated exposure control was used as a dose optimization technique for this examination. CONTRAST TYPE/DOSE: 75mL of IOVERSOL 350 MG IODINE/ML INTRAVENOUS SYRINGE injected via intravenous COMPARISON: 09/09/2023 REFERENCE: Per ACR white paper recommendations, unless otherwise specified no follow-up imaging is recommended for incidental renal and adrenal lesions per consensus recommendations based on imaging criteria. Further lab evaluation could be pursued based on clinical findings. FINDINGS: LOWER CHEST: Lung bases are clear. Heart size normal. No effusion. LIVER/BILIARY: Liver unremarkable. Biliary tree normal in caliber. GALLBLADDER: Absent. SPLEEN: Normal. PANCREAS: Normal. ADRENAL GLANDS: Normal. KIDNEYS/URINARY TRACT: Small cyst upper pole right kidney. Mild symmetric renal atrophy suggests prior obstruction or infection. Ureters and bladder appear normal. GI: Stomach and small bowel appear normal. Colon unremarkable. Appendix not seen. OTHER ABDOMINAL/PELVIS: Major vascular structures are grossly patent and normal in caliber. No enlarged lymph node or free fluid. Trace pelvic edema. MSK: Moderate facet arthropathy, mild disc disease. Mild hip and SI joint arthrosis. BODY WALL: Small amount of subcutaneous edema in the left lower quadrant suggests a trocar site. IMPRESSION: No abscess or other acute postoperative complication identified. Trace pelvic edema. THIS IS AN ELECTRONICALLY VERIFIED FINAL REPORT 09/19/2023 10:46 AM - Electronically signed by Boone Hernandez M.D. AR: [id number] Report ID: [id number] Reading Location: [id number] No results found for this or any previous visit from the past 365 days. Sarahy Arboleda was seen today for new patient and kidney cyst . Diagnoses and all orders for this visit: Kidney cysts - POCT UA AUTOMATED W/O MICRO By: Mir Spencer MD, 10/29/2023, 8:08 AM [place] COUNCILMAN Primary Care Physician: PARMJIT DAI MD COUNCILMAN documented in this encounter Procedure Notes * Willem Bynum - 10/29/2023 8:00 AM CSTAssociated Order(s): SMILEY,POST-VOID RES,US,NON-IMAGING POCT Bladder Scan collected per standing order of Dr. Spencer on 10/29/2023 PVR= 54 ML COUNCILMAN documented in this encounter Miscellaneous Notes * Addendum Note - Willem Bynum - 10/29/2023 8:00 AM CSTAddended by: WILLEM BYNUM on: 10/29/2023 08:46 AM Modules accepted: Orders COUNCILMAN documented in this encounter Plan of Treatment Not on file documented as of this encounter Procedures Procedure Name Priority Date/Time Associated Diagnosis Comments POCT UA AUTOMATED W/O MICRO Routine 10/29/2023 8:11 AM [place] COUNCILMAN Kidney cysts SMILEY,POST-VOID RES,US,NON-IMAGING Routine 10/29/2023 8:00 AM [place] COUNCILMAN Kidney cysts Overactive bladder documented in this encounter Results * (ABNORMAL) POCT UA AUTOMATED W/O MICRO (10/29/2023 8:11 AM CITY COUNCILMAN) POC UA SPECIFIC GRAVITY 1.005 URINE PH 8.0 5.0 - 9.0 POC URINE LEUKOCYTES 25 /ul(A) Negative Ivone/uL POC URINE NITRITE Negative Negative POC URINE PROTEIN Negative Negative mg/dL POC URINE GLUCOSE Negative Negative, Norm mg/dL POC URINE KETONE Negative Negative mg/dL POC URINE UROBILINOGEN Norm Norm, 0.2 E.U./dL (mg/dL), 1 E.U./dL (mg/dL) POC URINE BILIRUBIN Negative Negative mg/dL POC URINE BLOOD INSTRUMENT Negative Negative Naman/uL POC URINE COLOR Yellow POC URINE CLARITY Clear Urine 10/29/2023 8:11 AM CITY COUNCILMAN us Mir Spencer MD POINT OF CARE TESTING (MANUAL) F inal Result * SMILEY,POST-VOID RES,US,NON-IMAGING (10/29/2023 8:00 AM CITY COUNCILMAN) Narrative Willem Bynum - 10/29/2023 8:00 AM CITY COUNCILMAN Willem Bynum ? 10/29/2023 ??8:46 AM POCT Bladder Scan collected per standing order of Dr. Spencer on 10/29/2023 PVR= 54 ML Mir Spencer MD [place] - SURGERY Final Result documented in this encounter Visit Diagnoses Diagnosis Kidney cysts- Primary Unspecified congenital cystic kidney disease Overactive bladder Hypertonicity of bladder documented in this encounter Care Teams Steamboat Pilot Relationship Specialty Start Date End Date Parmjit Dai MD [address] [place] [address] [address] [place] [address] PCP - General Family Medicine 05/21/22 Jazmine Kulkarni MD [address] [place] [address] [address] [place] [address] Family Medicine 05/21/22 Mir Spencer MD #2 [facility] [address] [place] [address] Consulting Physician Urology 10/29/23 documented as of this encounter
--- OUTSIDE RECORDS SUMMARY | 2024-08-16 04:29 | XMS_ITS | Clinical Summary ---
Author Organization [facility] [employer] Address [address] [place] [address] Care Team Providers Care Production Finisher Name Role Phone Mandeep Pennington DO Primary Care Provider [phone] Source Comments [facility] [employer],non-owned Affiliates and Associated Physician Practices is amultiple site organization consisting of ambulatory clinics and hospital sitesin [place], [place], [place] and [place]. This disclosure is being madepursuant to the Care Everywhere program and may not contain all information available regarding this patient. Last updated 18.[facility] [employer] Allergies Active Allergy Reactions Criticality Noted Date [...] to this non-inflammatory hypersensitivity pain disorder. Sarahy Cardenas Wongjulianalexanderelise was provided additional written information regarding fibromyalgia [...] at this time. History of IBS 05/30/2024 Encounters Date Type Department Care Team Description 06/30/2024 9:20 AM CDT Office Visit [facility] - Rheumatology [address] [place] [address], [address] [place] [id number] Rolando Castro DO Fibromyalgia syndrome (Primary Dx); Rheumatoid factor positive; Primary osteoarthritis of both first carpometacarpal joints 06/06/2024 1:15 PM CDT - 06/06/2024 11:59 PM CDT Hospital Encounter [facility] Health Imaging Services [address] [facility] [address] [place] [address] Rolando Castro DO Discharge Disposition: Home or Self Care 05/30/2024 3:00 PM CDT Office Visit [facility] - Rheumatology [address] [facility] [address], [address] [place] [phone] Rolando Castro DO Polyarthralgia (Primary Dx); Rheumatoid factor positive; Fibromyalgia syndrome; History of IBS from Last 3 Months Social History Tobacco Use Types Packs/Day Years [...] 06/30/2024 9:18 AM CDT Plan of Treatment Health Maintenance Due Date Last Done Comments COLOGUARD (AGES 45-75) - COLON CA SCREENING 1968 COLON MONITORING 1968 COLONOSCOPY - COLON CA SCREENING 1968 CT COLONOGRAPHY - COLON CA SCREENING 1968 Colorectal Cancer Screening 1968 FIT - COLON CA SCREENING 1968 FLEX SIG - COLON CA SCREENING 1968 PAP SMEAR 1968 HIV SCREENING 1983 DTAP/TDAP/TD VACCINES (1 - Tdap) 1987 HEPATITIS B VACCINE (1 of 3 - 19+ 3-dose series) 1987 ZOSTER VACCINE (1 of 2) 2018 DEPRESSION SCREENING 08/31/2023 MEDICARE AWV ? CALENDAR YEAR 2023 COVID-19 VACCINE ( season) 2024 INFLUENZA VACCINE (#1) 2024 , 07/01/2022, 06/18/2022, Additional history exists MAMMOGRAM 11/10/2025 11/11/2023, 05/20/2022 HEPATITIS C SCREENING Completed 06/06/2024 HIB VACCINE Aged Out No longer eligi ble based on patient's age to complete this topic HPV VACCINE Aged Out No longer eligi ble based on patient's age to complete this topic MENINGOCOCCAL VACCINE Aged Out No tal pratima eligible based on patient's age to complete this topic PNEUMOCOCCAL VACCINE Aged Out No long er eligible based on patient's age to complete this topic Procedures Procedure Name Priority Date/Time Associated Diagnosis [...] 1:10 PM CDT Performed at: ??01 - [address] ??[id number] Recreation Facilities Supervisor: Edmundo Dias PhD, Phone: ??[phone] Rolando Castro DO LAB - SEROLOGY ORDER KIRA Performing Organization Address [facility] de Phone Number [facility] INSURANCE BILL [address] [place] [address] * C-REACTIVE PROTEIN (CRP) (06/06/2024 2:30 PM CDT) C-Reactive Protein <1 0 - 10 mg/L [facility] INSURANCE BILL Blood BLOOD SPECIMEN / Unknown 06/06/2024 2:30 PM CDT 06/06/2024 Narrative [facility] INSURANCE BILL - 06/07/2024 1:10 PM CDT Performed at: ??01 - [address] ??[id number] Recreation Facilities Supervisor: Edmundo Dias PhD, Phone: ??[phone] Rolando Castro DO LAB - CHEMISTRY ORDKourtney WALDRON Performing Organization Address City/[facility]/ZIP Co de Phone Number [facility] INSURANCE BILL [address] [place] [address] * QUANTIFERON TB-GOLD (06/06/2024 2:30 PM CDT) [facility] QuantiFERON Incubation Incubation performed. [facility] INSURANCE BILL QuantiFERON-TB Gold Plus Negative Negative [facility] INSURANCE BILL Comment: No response to M tuberculosis antigens detected. Infection with M tuberculosis is unlikely, but high risk individuals should be considered for additional testing (ATS/IDSA/CDC Clinical Practice Guidelines, 2017). The reference range is an Antigen minus Nil result of <0.35 IU/mL. Chemiluminescence immunoassay methodology Performed at: ?? - [address] ??[id number] Recreation Facilities Supervisor: Edmundo Dias PhD, Phone: ??[phone] QuantiFERON Criteria Comment [facility] INSURANCE BILL Comment: [...] - 06/08/2024 11:07 PM CDT Performed at: ?? - [address] ??[id number] Recreation Facilities Supervisor: Edmundo Dias PhD, Phone: ??[phone] Rolando Castro DO LAB - CHEMISTRY ROQUE WALDRON Performing Organization Address City/[facility]/ZIP Co de Phone Number [facility] INSURANCE BILL [address] [place] [address] * SED RATE AUTO (ESR) (06/06/2024 2:30 PM CDT) Erythrocyte Sedimentation Rate Westergren 2 0 - 40 mm/hr [facility] INSURANCE BILL Blood BLOOD SPECIMEN / Unknown 06/06/2024 2:30 PM CDT 06/06/2024 Narrative [facility] INSURANCE BILL - 06/07/2024 7:12 AM CDT Performed at: ??01 - [facility] [address] ??[id number] Recreation Facilities Supervisor: Edmundo Dias PhD, Phone: ??[phone] Rolando Castro DO LAB - HEMATOLOGY ORD ERABLES Performing Organization Address [facility] Co de Phone Number [facility] INSURANCE BILL [address] [place] [address] * HEPATITIS C ANTIBODY (06/06/2024 2:30 PM CDT) Pathologist [facility] Hepatitis C Antibody Non Reactive Non Reactive [...] AM CDT Performed at: ??01 - [facility] [address] ??[id number] Recreation Facilities Supervisor: Edmundo Dias PhD, Phone: ??[phone] Rolando Castro DO LAB - CHEMISTRY ORDE RABDAPHNE Performing Organization Address [facility]/ZIP Co de Phone Number [facility] INSURANCE BILL [address] [place] [address] * XR Foot Bilat 3Vw or More [...] hand and wrist osteoarthritis. > Interpreting Provider: Nataila Hamm MD on 06/06/2024 3:00 PM Narrative [...] RDERABLES from Last 3 Months Care Teams Production Finisher Relationship Specialty Start Date End Date Mandeep Pennington DO [address] [place] [address] PCP - General Internal Medicine 06/30/24
--- OUTSIDE RECORDS SUMMARY | 2024-08-16 04:29 | XMS_ITS | Encounter Summary ---
Author Organization [facility] Address [address] [facility] [address] Phone Care Team Providers Care Assembler Dc Field Yoke Name Role Phone Parmjit Dai MD Primary Care Provider [phone] Jazmine Kulkarni MD Unavailable + [phone] Reason for Visit * Reason Comments Follow-up Encounter Details Date Type Department Care Team (Late st Contact Info) Description 10/16/2023 8:45 AM ICE GUARD TESTER Office Visit [facility] Oncology Services [address] [place] [address] Milla Brenner Betina, [address] [place] [address] Iron deficiency anemia, unspecified iron deficiency anemia type (Primary Dx) Discharge Disposition: Discharged to home or Selfcare Social History Tobacco Use Types Packs/Day Years Used Date Smoking Tobacco: Former Cigarettes 0.5 10 1 990 - 2000 Smokeless Tobacco: Never Comments No Sex and Gender Information Value Date Recorded Sex Assigned at Not on file Legal Sex Female 1:04 PM CDT Gender Identity Not on file Sexual Orientation Not on file documented as of this encounter Last Filed Vital Signs Vital Sign Reading Time Taken Comments Blood Pressure 116/64 10/16/2023 8:53 AM ICE GUARD TESTER Pulse 62 10/16/2023 8:53 AM ICE GUARD TESTER Temperature 36.9 ??C (98.4 ??F) 10/16/2023 8:53 AM CS T Respiratory Rate 20 10/16/2023 8:53 AM ICE GUARD TESTER Oxygen Saturation 100% 10/16/2023 8:53 AM ICE GUARD TESTER Inhaled Oxygen Concentration - - Weight 55.6 kg (122 lb 8 oz) 10/16/2023 8:53 AM ICE GUARD TESTER Height 162.6 cm (5' 4 ) 10/16/2023 8:53 AM ICE GUARD TESTER Body Mass Index 21.03 10/16/2023 8:53 AM ICE GUARD TESTER documented in this encounter Patient Instructions * Patient Instructions* Milla Brenner PAC - 10/16/2023 8:45 AM ICE GUARD TESTER Continue iron rich diet- handout provided Avoid foods/ beverages that interfere with iron absorption Certain heartburn medication such as pantoprazole (Protonix) interfere with iron absorption- do nottake with iron supplement Famotidine (Pepcid) does not interfere with iron absorption Begin oral iron supplement Lyford's chewable, 1 at bedtime- be sure to take iron supplement on an empty stomach with vitamin-C Use cast iron cookware Avoid ibuprofen/Aleve/naproxen-may use Tylenol or Tylenol arthritis as needed for pain. Proceed with labs as recommended prior to follow-up Follow-up in 4 months to review labs PLEASE READ: If you are required to have labs/ testing done PRIOR to follow up, please have testing completed nolater than 2-5 days prior to appointment. If you do not have testing completed prior to your scheduled follow-up appointment you will be asked to reschedule until testing completed All patients are expected to check in with registration 15 minutes prior to all appointments. Patients who arrive 15 minutes or more after their scheduled appointment time may be required to reschedule. Please schedule follow-up in near future to discuss any concerns that were not addressed fully at today's office visit. To continue to provide excellent patient care, you may receive a survey regarding your visit today.To help us serve you better, please complete and return. These surveys are completely anonymous. If you have any concerns/ questions regarding today's visit, please call. If you experience any new or worsening symptoms, please call or go to the emergency department. GUARD TESTER GUARD TESTER GUARD TESTER * Attachments The following attachments cannot be sent through Care Everywhere. * Iron-Rich Diet (Tunisian) documented in this encounter Progress Notes * Milla Brenner, PAC - 10/16/2023 8:45 AM CST Outpatient Hem/Onc Progress Note Sarahy Gill is a 53 y.o. female who presents for 2 month follow-up for iron- deficiency anemia. She received Venofer 300 mg for 4 infusions. Last infusion 09/04/2023. Unfortunately on 09/08/2023 she experienced acute appendicitis and underwent laparoscopic appendectomy. States she is still trying to bounce back get on her feet and experiencing some occasional dizziness, nausea as well as fatigue. Did not really notice any significant change in her energy level with Venofer but this could have been due to the acute illness she suffered. Other than still feeling like she is trying to recoverfrom her surgery she reports feeling good. Denies any chest pain or shortness a breath. Here to review labs. ALLERGIES: Allergies Allergen Reactions ??? Azithromycin Other (see Comments) Abdominal pain ??? Phenergan [Promethazine] Other (see Comments) Made her feel spaced out MEDICATIONS: Current Outpatient Medications Medication Sig Dispense Refill ??? apixaban (Eliquis) 5 MG Tablet Take 5 mg by mouth 2 times daily. ??? atorvastatin (LIPITOR) 40 MG Tablet Take 40 mg by mouth nightly. ??? baclofen (LIORESAL) 10 MG Tablet Take 10 mg by mouth 3 times daily. ??? Dicyclomine HCl (BENTYL PO) Take by mouth. Indications: Up to four times a day ??? famotidine (PEPCID) 20 MG Tablet Take 20 mg by mouth daily. ??? flecainide (TAMBOCOR) 100 MG Tablet Take 100 mg by mouth 2 times daily. ??? metoprolol tartrate (LOPRESSOR) 25 MG Tablet Take 25 mg by mouth 2 times daily. ??? nortriptyline (PAMELOR) 25 MG Capsule Take 25 mg by mouth daily. ??? Ondansetron HCl (ZOFRAN PO) Take by mouth as needed. ??? pantoprazole (PROTONIX) 40 MG Pack 40 mg by Per NG tube route 2 times daily. No current facility-administered medications for this visit. PMS/H: Past Medical History Positives Diagnosis Date ??? Anxiety ??? Arthritis ??? Depression ??? GERD (gastroesophageal reflux disease) ??? Hemorrhoids ??? Hiatal hernia ??? IBS (irritable bowel syndrome) ??? Migraine ??? Palpitations ??? TIA (transient ischemic attack) Past Surgical History: Procedure Laterality Date ??? APPENDECTOMY 08/2023 ??? SECTION 1992 [facility] ??? CHOLECYSTECTOMY 2010 [place] ??? HIATAL HERNIA REPAIR 2012 [facility] ??? KNEE SURGERY 1980 and 2003 [facility] ??? TUBAL LIGATION 2000 [facility] SOCIAL: Social History Socioeconomic History ??? Marital status: Spouse name: Not on file ??? Number of children: Not on file ??? Years of education: Not on file ??? Highest education level: Not on file Occupational History ??? Not on file Tobacco Use ??? Smoking status: Former Packs/day: 0.50 Years: 10.00 Additional pack years: 0.00 Total pack years: 5.00 Types: Cigarettes Quit date: 2000 Years since quittin.1 ??? Smokeless tobacco: Never Vaping Use ??? Vaping Use: Never used Substance and Sexual Activity ??? Alcohol use: Not on file ??? Drug use: Never ??? Sexual activity: Not on file Other Topics Concern ??? Not on file Social History Narrative ??? Not on file Social Determinants of Health Financial Resource Needs: Not on file Food Insecurity Needs: Not on file Transportation Needs: Not on file Physical Activity: Not on file Stress: Not on file Social Integration: Not on file Intimate Partner Violence: Not on file Housing Stability: Not on file FAMILY HX: Family History Problem Relation Age of Onset ??? Cancer Maternal Aunt ??? Stroke Maternal Grandmother ??? Diabetes Maternal Grandmother ??? Cancer Maternal Grandmother VITAL SIGNS: Vitals: 10/16/23 0853 BP: 116/64 BP Location: Right Arm BP Position: Sitting BP Cuff Size: Regular Pulse: 62 Resp: 20 Temp: 98.4 ??F (36.9 ??C) SpO2: 100% Weight: 122 lb 8 oz (55.6 kg) Height: 5' 4 (1.626 m) GENERAL EXAM: GENERAL: Well developed, well nourished, in no acute distress. AAO x3. Cooperative. HEENT: Normocephalic. PERRLA. Nonicteric. NECK: Supple/ non tender/ full ROM LYMPH NODES: No adenopathy. CARDIOVASCULAR: RRR/ S1S2/ No m/g/c/r. PULMONARY: Respirations easy and regular. Breath sounds clear bilaterally. No rhonchi/ rales/ wheezes. MUSCULOSKELETAL: Normal gait and movement of extremities. SKIN: General-warm, pink and dry. No rashes/ lesions. PSYCHIATRIC: Euthymic. Affect congruent with mood. Normal thought process. PAIN ASSESSMENT: 0 DATA: Results for orders placed or performed in visit on 10/14/23 VITAMIN B12 Result Value Ref Range VITAMIN B12 >2,000 (H) 213 - 816 pg/mL FERRITIN Result Value Ref Range FERRITIN 293 (H) 5 - 204 ng/mL IRON,TRANSFERN,CALC.TIBC,%SAT Result Value Ref Range IRON 49 25 - 156 mcg/dL TRANSFERRIN 228 180 - 382 mg/dL TIBC, CALCULATED 285 265 - 497 mcg/dL % SATURATION * 17 15 - 62 % CBC WITH AUTO DIFFERENTIAL Result Value Ref Range WBC 5.11 4.00 - 12.00 10(3)/mcL RBC 4.49 3.80 - 5.30 10(6)/mcL HEMOGLOBIN (HGB) 12.7 12.0 - 15.8 g/dL HEMATOCRIT (HCT) 40.0 36.0 - 47.0 % MCV 89.1 82.0 - 96.0 fL MCH 28.3 26.0 - 34.0 pg MCHC 31.8 31.0 - 36.0 g/dL PLATELET COUNT 306 140 - 440 10(3)/mcL RDW 19.5 (H) 11.8 - 15.5 % MPV 11.0 9.7 - 12.4 fL NEUTROPHILS 57.0 47.0 - 73.0 % LYMPHOCYTES 29.5 18.0 - 42.0 % MONOCYTES 11.5 4.0 - 12.0 % EOSINOPHILS 1.4 0.0 - 5.0 % BASOPHILS 0.6 0.0 - 1.0 % ABSOLUTE NEUTROPHILS 2.91 1.60 - 7.70 10(3)/mcL ABSOLUTE LYMPHOCYTES 1.51 1.30 - 3.20 10(3)/mcL ABSOLUTE MONOCYTES 0.59 0.20 - 1.00 10(3)/mcL ABSOLUTE EOSINOPHIL 0.07 0.00 - 0.40 10(3)/mcL ABSOLUTE BASOPHILS 0.03 0.00 - 0.10 10(3)/mcL NRBC PER 100 WBC 0 Assessment: Diagnoses and all orders for this visit: Iron deficiency anemia, unspecified iron deficiency anemia type - COMPLETE BLOOD COUNT (CBC) WITH DIFF; Future - VITAMIN B12; Future - FERRITIN; Future - IRON,TRANSFERN,CALC.TIBC,%SAT; Future Plan: Reviewed and discussed above results. Advised she did seem to respond to the iron infusion fairly well. Recommended beginning Flintstones chewable 1 chewable nightly with vitamin-C to enhance absorption. She reports she does have cast iron cookware, was encouraged to use for meal prep. Was advised to avoid taking her iron supplement with her pantoprazole as this will interfere with absorption. Iron rich handout was provided. New labs and follow-up in 4 months. Diagnoses and all orders for this visit: Iron deficiency anemia, unspecified iron deficiency anemia type - COMPLETE BLOOD COUNT (CBC) WITH DIFF; Future - VITAMIN B12; Future - FERRITIN; Future - IRON,TRANSFERN,CALC.TIBC,%SAT; Future Return in about 4 months (around 02/14/2024) for Anemia. The patient was given an opportunity to ask questions, and all questions answered to patient's satisfaction. Patient verbalizes understanding of the plan as outlined above. Patient Instructions Continue iron rich diet- handout provided Avoid foods/ beverages that interfere with iron absorption Certain heartburn medication such as pantoprazole (Protonix) interfere with iron absorption- do nottake with iron supplement Famotidine (Pepcid) does not interfere with iron absorption Begin oral iron supplement Lyford's chewable, 1 at bedtime- be sure to take iron supplement on an empty stomach with vitamin-C Use cast iron cookware Avoid ibuprofen/Aleve/naproxen-may use Tylenol or Tylenol arthritis as needed for pain. Proceed with labs as recommended prior to follow-up Follow-up in 4 months to review labs PLEASE READ: If you are required to have labs/ testing done PRIOR to follow up, please have testing completed nolater than 2-5 days prior to appointment. If you do not have testing completed prior to your scheduled follow-up appointment you will be asked to reschedule until testing completed All patients are expected to check in with registration 15 minutes prior to all appointments. Patients who arrive 15 minutes or more after their scheduled appointment time may be required to reschedule. Please schedule follow-up in near future to discuss any concerns that were not addressed fully at today's office visit. To continue to provide excellent patient care, you may receive a survey regarding your visit today.To help us serve you better, please complete and return. These surveys are completely anonymous. If you have any concerns/ questions regarding today's visit, please call. If you experience any new or worsening symptoms, please call or go to the emergency department. GUARD TESTER documented in this encounter Miscellaneous Notes * Interdisciplinary - Vangie Ward - 10/16/2023 8:45 AM CST The patient reports dizziness, nausea and fatigue. Pain score is 0. GUARD TESTER * Idalmis - Vangie Ward - 10/16/2023 8:45 AM CST The patient will follow up in 4 months with labs prior. AVS printed and handed to patient as she was escorted to the lobby. GUARD TESTER documented in this encounter Plan of Treatment Not on file documented as of this encounter Results * IRON,TRANSFERN,CALC.TIBC,%SAT (02/10/2024 9:43 AM CDT) IRON 87 25 - 156 mcg/dL 02/10/2024 10:32 AM CDT [facility] TRANSFERRIN 269 180 - 382 mg/dL 02/10/2024 10:32 AM CDT [facility] TIBC, CALCULATED 336 265 - 497 mcg/dL 02/10/2024 10:32 AM CDT [facility] % SATURATION * 26 15 - 62 % 02/10/2024 10:32 AM CDT [facility] Blood Venipuncture / Unknown 02/10/2024 9:43 AM CDT 02/10/2024 9:53 AM CDT [facility] PAC CHEMISTRY ORDERABLES Cristy l Result [facility] [address] [place] [address] * FERRITIN (02/10/2024 9:43 AM CDT) FERRITIN 135 5 - 204 ng/mL 02/10/2024 10:49 AM CDT [facility] Blood Venipuncture / Unknown 02/10/2024 9:43 AM CDT 02/10/2024 9:53 AM CDT [facility] PAC CHEMISTRY ORDERABLES Cristy l Result [facility] [address] [place] [address] * (ABNORMAL) VITAMIN B12 (02/10/2024 9:43 AM CDT) VITAMIN B12 1,313(H) 213 - 816 pg/mL 02/10/2024 10:52 AM CDT [facility] Blood Venipuncture / Unknown 02/10/2024 9:43 AM CDT 02/10/2024 9:53 AM CDT [facility] PAC CHEMISTRY ORDERABLES Cristy l Result [facility] [address] [place] [address] documented in this encounter Visit Diagnoses Diagnosis Iron deficiency anemia, unspecified iron deficiency anemia type- Primary documented in this encounter Care Teams Assembler Dc Field Yoke Relationship Specialty Start Date End Date Parmjit Dai MD [address] [place] [address] PCP - General Family Medicine 05/21/22 Jazmine Kulkarni MD [address] [place] [address] Family Medicine 05/21/22 documented as of this encounter
--- OUTSIDE RECORDS SUMMARY | 2024-08-16 04:29 | XMS_ITS | Encounter Summary ---
Author Organization [facility] Address [address] [facility] [address] [place] [address] Phone Care Team Providers Care Cadd Instructor Name Role Phone Parmjit Dai MD Primary Care Provider [phone] Jazmine Kulkarni MD Unavailable [phone] Reason for Visit * Episode Based Medications (Routine) - Closed Specialty Diagnoses / Procedures Referred By Loreta t Referred To Contact Diagnoses Iron deficiency anemia, unspecified iron deficiency anemia type Milla Brenner Betina, [address] [place] [address] Phone: tel: fax: [facility] [address] [place] [address] Phone: tel: fax: Referral ID Status Reason Start Date Expiration Date Visits Re quested Visits Authorized [id number] Closed 08/14/2023 4 4 Encounter Details Date Type Department Care Team (Late st Contact Info) Description 09/04/2023 11:00 AM ADVANCE AGENT Clinical Support [facility] [address] [place] [address] Ramone Soto MD [address] [place] [address] Iron deficiency anemia, unspecified iron [...] Sign Reading Time Taken Comments Blood Pressure 122/75 09/04/2023 11:03 AM ADVANCE AGENT Pulse 68 09/04/2023 11:03 AM ADVANCE AGENT Temperature 37 ??C (98.6 ??F) 09/04/2023 11:03 AM ADVANCE AGENT Respiratory Rate 16 09/04/2023 11:03 AM ADVANCE AGENT Oxygen Saturation - - Inhaled Oxygen Concentration - - Weight - - Height - - Body Mass Index - - documented in this encounter Miscellaneous Notes * Interdisciplinary - Chichi Jansen RN - 09/04/2023 11:00 AM CST Presented for scheduled venofer. Vitals and IV obtained. Medicated per orders, tolerated well. IV removed, gauze and coban applied. Left treatment room in stable condition. NCE AGENT documented in this encounter Plan of Treatment [...] 300 mg, Intravenous, ONCE, 1 dose, On Thu09/04/23 at 1130, Administer over 90 Minutes, Monitor patient for 30 minutes after infusion completedIndications:Iron deficiency anemia, unspecified iron deficiency anemia type New Bag 09/04/2023 11:22 AM ADVANCE AGENT 300 mg 166.7 mL/hr documented in this encounter Care Teams Cadd Instructor Relationship Specialty Start Date End Date Parmjit Dai MD [address] [place] [address] PCP - General Family Medicine 05/21/22 Jazmine Kulkarni MD [address] [facility] [address] [address] Family Medicine 05/21/22 documented as of this encounter
--- OUTSIDE RECORDS SUMMARY | 2024-08-16 04:29 | XMS_ITS | Encounter Summary ---
Author Organization [facility] Health Address [address] [place] [address] Care Team Providers Care Security And Privacy Consultant Name Role Phone Unavailable Primary Care Provider Unavailabl e Encounter Details Date Type Department Care Team (Latest Contact Info) Description 06/06/2024 1:15 PM CDT - 06/06/2024 11:59 PM CDT Hospital Encounter [facility] [address] [place] [address] Rolando Castro DO [address] [place] [id number] Discharge Disposition: Home or Self Care Social History Tobacco Use Types Packs/Day Years Used Date Smoking Tobacco: Never Smokeless Tobacco: Never Alcohol Use Standard Drinks/Week Comments Not Currently 0 (1 standard drink = 0.6 oz pur e alcohol) Sex and Gender Information Value Date Recorded Sex Assigned at Not on file Gender Identity Not on file Sexual Orientation Not on file documented as of this encounter Medications at Time of Discharge Medication Sig Dispensed Refills Start Date End Date Acetaminophen Extra Strength 500 MG TABS Take 1 (one) tablet by mouth every 6 hours as needed For pain. 07/18/2023 amitriptyline (Elavil) 10 MG tablet Take 1 (one) tablet by mouth apixaban (Eliquis) 5 MG tablet Take 1 (one) tablet by mouth 2 times daily atorvastatin (Lipitor) 40 MG tablet Take 1 (one) tablet by mouth at bedtime busPIRone (Buspar) 10 MG tablet 1 (one) tablet 05/06/2024 dicyclomine (Bentyl) 20 MG tablet Take 1 (one) tablet by mouth 04/17/2023 famotidine (Pepcid) 20 MG tablet Take 1 (one) tablet by mouth once daily as needed flecainide (Tambocor) 100 MG tablet TAKE 1 TABLET BY MOUTH TWICE DAILY. START TAKING SATURDAY 07/07 meclizine (Antivert) 12.5 MG tablet Take 1 (one) tablet by mouth 3 times daily as needed 10/16/2023 metoprolol succinate XL 24hr (Toprol XL) 25 MG tablet Take 1 (one) tablet by mouth once daily ondansetron, disintegrating, (Zofran ODT) 4 MG tablet DISSOLVE 1 TABLET ON THE TONGUE EVERY 8 HOURS NEEDED FOR NAUSEA OR VOMITING 07/18/2023 pantoprazole EC (Protonix) 40 MG tablet Take 1 (one) tablet by mouth 2 times daily 05/13/2024 SUMAtriptan Succinate 6 MG/0.5ML 01/04/2024 documented as of this encounter Plan of Treatment Not on file documented as of this encounter Procedures Procedure Name Priority Date/Time Associated Diagnosis Comments XR FOOT BILAT 3VW OR MORE Routine 06/06/2024 2:06 PM CDT Polyarthralgia Rheumatoid factor positive XR HAND BILAT 3VW OR MORE Routine 06/06/2024 2:06 PM CDT Polyarthralgia Rheumatoid factor positive documented in this encounter Results * XR Foot Bilat 3Vw or More [...] documented in this encounter Visit Diagnoses Diagnosis Polyarthralgia Pain in joint, multiple sites Rheumatoid factor positive Other and unspecified nonspecific immunological findings documented in this encounter
--- OUTSIDE RECORDS SUMMARY | 2024-08-16 04:30 | XMS_ITS | Encounter Summary ---
Author Organization [facility] Address [address] [place] [address] Phone Care Team Providers Care Aircraft Maintenance Supervisor Name Role Phone Parmjit Dai MD Primary Care Provider [phone] Jazmine Kulkarni MD Unavailable [phone] Reason for Visit * Reason Comments New Patient * Consult, Test & Initiate Treatment (Routine) - Closed Specialty Diagnoses / Procedures Referred By Contac t Referred To Contact Hematology Diagnoses Iron deficiency anemia, unspecified Parmjit Dai MD [address] [place] [address] [address] Phone: tel: fax: [address] [address] Phone: tel: Referral ID Status Reason Start Date Expiration Date Visits Re quested Visits Authorized [id number] Closed 1 1 Encounter Details Date Type Department Care Team (Late st Contact Info) Description 08/14/2023 9:15 AM HOSE FINISHER Initial Consult [facility] [address] [place] [address] Andry Brenner Betina, PAC [address] [place] [address] Anemia, unspecified type (Primary Dx) Discharge Disposition: Discharged to [...] Sign Reading Time Taken Comments Blood Pressure 120/78 08/14/2023 9:31 AM HOSE FINISHER Pulse 76 08/14/2023 9:31 AM HOSE FINISHER Temperature 36.8 ??C (98.2 ??F) 08/14/2023 9:31 AM CS T Respiratory Rate 16 08/14/2023 9:31 AM HOSE FINISHER Oxygen Saturation 96% 08/14/2023 9:31 AM HOSE FINISHER Inhaled Oxygen Concentration - - Weight 61.3 kg (135 lb 3.2 oz) 08/14/2023 9:31 A M HOSE FINISHER Height 162.6 cm (5' 4 ) 08/14/2023 9:31 AM HOSE FINISHER Body Mass Index 23.21 08/14/2023 9:31 AM HOSE FINISHER documented in this encounter Patient Instructions * Patient Instructions* Andry Brenner, HUMERA - 08/14/2023 9:15 AM HOSE FINISHER Iron rich diet- handout provided Increase vitamin C intake to enhance iron absorption Avoid foods/ beverages that interfere with iron absorption Certain heartburn medication such as pantoprazole (Protonix), interfere with iron absorption- do not take at the same time as iron supplement Famotidine (Pepcid) does not interfere with iron absorption May begin Napoleon's chewables 2 tabs 2 x a day - be sure to take iron supplement on an empty stomach with vitamin-C Avoid ibuprofen/Aleve/naproxen-may use Tylenol or Tylenol arthritis as needed for pain. Proceed with labs as recommended Follow-up in 4 weeks to review labs If iron infusion indicated will contact to arrange and plan follow up 2 months after last infusion with new labs a week prior to appointment PLEASE READ: If you are required to [...] call or go to the emergency department. FINISHER FINISHER FINISHER * Attachments The following attachments cannot be sent through Care Everywhere. * Iron-Rich Diet (Cymraes) documented in this encounter Progress Notes * Andry Brenner PAC - 08/14/2023 9:15 AM CST Outpatient Hem/Onc Progress Note Sarahy Gill is a 53 y.o. female seen today for evaluation anemia. Reports she is had chronic problems with anemia for numerous years. Usually has been instructed to take oral iron. States it doeswork but it irritates her IBS and she is difficulty tolerating it. She does have history of GERD, IBS. History of hiatal hernia with surgical repair. Also reports anxiety. States she is lost approximately 10 lb over the last 3-6 months. States she experiences chills frequently. Has been having somenight sweats. Her fatigue is chronic, all the time. Denies any PICA for ice. She does wear glasses but also reports she is noticed some visual changes. She does have hoarseness secondary to her GERD.She suffers from chronic neck pain and stiffness as well as joint pain and stiffness and back pain.She does report DELEON for the last 6-8 months. States she will experience some chest discomfort and palpitations as well. Believes this may also be related to some of her anxiety issues. She reports anitching sensation to arms and legs. Numerous GI issues including poor appetite, heartburn, nausea. IBS causing bowel changes with constipation. Also reports dysphagia. Her last EGD was approximate 2 years ago. She states she is scheduled for new EGD 08/19/2023. Her last colonoscopy was performed 1 year ago. She reports that time she did have polyps. Recommendation was due to check in 5 years. Does notice some dizziness with position change in's especially sitting to standing. Experiences chronic sleep and anxiety issues. Reports urinary frequency Denies headache/ facial pain or sinus pressure or pain. Denies earache/ hearing loss or tinnitus. No nasal discharge or epistaxis. Denies any oral lesions or bleeding from gums. Denies sore throat. Denies lesions/ rash/ discoloration to skin. Denies fainting. Denies any numbness or tingling. Deniesbreast pain/ lump/ nipple discharge. Menarche age 10. Last menstrual cycle age 43 due to ablation. Menopause unknown. Reviewed patients past medical, surgical, social, and family history. Outpatient Medications Marked as Taking for the 08/14/23 encounter (Initial Consult) with Andry Brenner, [facility] Medication Sig Dispense Refill ??? apixaban (Eliquis) [...] Per NG tube route 2 times daily. Allergies as of 08/14/2023 - Reviewed 08/14/2023 Allergen Reaction Noted ??? Azithromycin Other (see Comments) 08/14/2023 History reviewed. No pertinent past medical history. No past surgical history on file. Physical Exam GENERAL:Well developed, well nourished, in no acute distress. AAO x3. Cooperative. HEENT:Normocephalic. PERRLA. Nonicteric. NECK:Supple/ non tender/ full ROM. LYMPH NODES:No adenopathy. CARDIOVASCULAR:RRR/ S1S2/ No m/g/c/r. PULMONARY: Respirations easy and regular. Breath sounds clear bilaterally. No rhonchi/ rales/ wheezes. GI: Abdomen soft, nondistended. No tenderness, rebound, guarding or mass. No hepatosplenomegaly. Bowel sounds normoactive. MUSCULOSKELETAL:Full ROM all extremities. No tenderness/ swelling/ crepitus. SKIN: General-warm, pink and dry. No rashes/ lesions. PSYCHIATRIC:Euthymic. Affect congruent with mood. Normal thought processes. PAIN ASSESSMENT: 0 DATA: CBC: 07/17/23 WBC 7.1 Hgb 9.8 Hct 32.3 Platelets 345 CMP: Na 142 K 3.6 Cl 107 CO2 26 Glu 107 BUN 8 Cr 0.00 AST 30 ALT 17 Alk Phos 91 T. bili 0.5 eGFR >60 Assessment: Diagnoses and all orders for this visit: Anemia, unspecified type - FOLIC ACID (FOLATE); Future - FERRITIN; Future - CMP (COMPREHENSIVE METABOLIC PANEL); Future - COMPLETE BLOOD COUNT (CBC) WITH DIFF; Future - VITAMIN B12; Future - RETICULOCYTE COUNT (RETIC); Future - LACTATE DEHYDROGENASE (LD); Future - FREE KAPPA & LAMBDA LIGHT CHAINS SERUM; Future - IMMUNOFIXATION W/ ELECTROPHORESIS SERUM; Future - IRON,TRANSFERN,CALC.TIBC,%SAT; Future Other orders - apixaban (Eliquis) 5 MG Tablet; Take 5 mg by mouth 2 times daily. - flecainide (TAMBOCOR) 100 MG Tablet; Take 100 mg by mouth 2 times daily. - metoprolol tartrate (LOPRESSOR) 25 MG Tablet; Take 25 mg by mouth 2 times daily. - atorvastatin (LIPITOR) 40 MG Tablet; Take 40 mg by mouth nightly. - nortriptyline (PAMELOR) 25 MG Capsule; Take 25 mg by mouth daily. - pantoprazole (PROTONIX) 40 MG Pack; 40 mg by Per NG tube route 2 times daily. - famotidine (PEPCID) 20 MG Tablet; Take 20 mg by mouth daily. - Ondansetron HCl (ZOFRAN PO); Take by mouth as needed. - baclofen (LIORESAL) 10 MG Tablet; Take 10 mg by mouth 3 times daily. - Dicyclomine HCl (BENTYL PO); Take by mouth. Indications: Up to four times a day Plan: Reviewed discussed chronic anemia. Will proceed with labs to evaluate iron and B12 levels. Was instructed to try Flintstones chewables 2 tabs twice daily. Handout provided on iron rich diet. Was encouraged to take vitamin-C supplement with her largest meal of the day and protein. Counseled regarding interference pantoprazole with iron absorption. Will proceed with labs and follow up in approximately 4 weeks. If iron infusions or indicated, she will be contacted these will be arranged, follow-up will be postponed for 2 months. Diagnoses and all orders for this visit: Anemia, unspecified type - FOLIC ACID (FOLATE); Future - FERRITIN; Future - CMP (COMPREHENSIVE METABOLIC PANEL); Future - COMPLETE BLOOD COUNT (CBC) WITH DIFF; Future - VITAMIN B12; Future - RETICULOCYTE COUNT (RETIC); Future - LACTATE DEHYDROGENASE (LD); Future - FREE KAPPA & LAMBDA LIGHT CHAINS SERUM; Future - IMMUNOFIXATION W/ ELECTROPHORESIS SERUM; Future - IRON,TRANSFERN,CALC.TIBC,%SAT; Future Other orders - apixaban (Eliquis) 5 MG Tablet; Take 5 mg by mouth 2 times daily. - flecainide (TAMBOCOR) 100 MG Tablet; Take 100 mg by mouth 2 times daily. - metoprolol tartrate (LOPRESSOR) 25 MG Tablet; Take 25 mg by mouth 2 times daily. - atorvastatin (LIPITOR) 40 MG Tablet; Take 40 mg by mouth nightly. - nortriptyline (PAMELOR) 25 MG Capsule; Take 25 mg by mouth daily. - pantoprazole (PROTONIX) 40 MG Pack; 40 mg by Per NG tube route 2 times daily. - famotidine (PEPCID) 20 MG Tablet; Take 20 mg by mouth daily. - Ondansetron HCl (ZOFRAN PO); Take by mouth as needed. - baclofen (LIORESAL) 10 MG Tablet; Take 10 mg by mouth 3 times daily. - Dicyclomine HCl (BENTYL PO); Take by mouth. Indications: Up to four times a day Return in about 4 weeks (around 09/11/2023) for Anemia, Review labs/ tests after completed. The patient was given an opportunity to ask questions, and all questions answered to patient's satisfaction. Patient verbalizes understanding of the plan as outlined above. Patient Instructions Iron rich diet- handout provided Increase vitamin C intake to enhance iron absorption Avoid foods/ beverages that interfere with iron absorption Certain heartburn medication such as pantoprazole (Protonix), interfere with iron absorption- do not take at the same time as iron supplement Famotidine (Pepcid) does not interfere with iron absorption May begin Napoleon's chewables 2 tabs 2 x a day - be sure to take iron supplement on an empty stomach with vitamin-C Avoid ibuprofen/Aleve/naproxen-may use Tylenol or Tylenol arthritis as needed for pain. Proceed with labs as recommended Follow-up in 4 weeks to review labs If iron infusion indicated will contact to arrange and plan follow up 2 months after last infusion with new labs a week prior to appointment PLEASE READ: If you are required to [...] call or go to the emergency department. FINISHER documented in this encounter Miscellaneous Notes * Interdisciplinary - Seema Carroll MA - 08/14/2023 9:15 AM CST New pt consult for iron deficiency anemia. No pain, today. Meds updated from new pt paperwork--tjo FINISHER * Interdisciplinary - Seema Carroll MA - 08/14/2023 9:15 AM CST Discussed discharge instructions. AVS given--tjo FINISHER * Addendum Note - Andry Brenner PAC - 08/14/2023 9:15 AM CSTAddended by: ANDRY BRENNER on: 08/14/2023 01:07 PM Modules accepted: Orders FINISHER documented in this encounter Plan of Treatment Not on file documented as of this encounter Results * IRON,TRANSFERN,CALC.TIBC,%SAT (10/14/2023 10:09 AM HOSE FINISHER) IRON 49 25 - 156 mcg/dL 10/14/2023 11:30 AM HOSE FINISHER [facility] TRANSFERRIN 228 180 - 382 mg/dL 10/14/2023 11:30 AM HOSE FINISHER [facility] TIBC, CALCULATED 285 265 - 497 mcg/dL 10/14/2023 11:30 AM HOSE FINISHER [facility] % SATURATION * 17 15 - 62 % 10/14/2023 11:30 AM HOSE FINISHER [facility] Blood Venipuncture / Unknown 10/14/2023 10:09 AM HOSE FINISHER 10/14/2023 11:05 AM HOSE FINISHER Andry Brenner PAC CHEMISTRY ORDERABLES Cristy l Result [facility] [address] [place] [address] * (ABNORMAL) FERRITIN (10/14/2023 10:09 AM HOSE FINISHER) FERRITIN 293(H) 5 - 204 ng/mL 10/14/2023 11:46 AM HOSE FINISHER [facility] Blood Venipuncture / Unknown 10/14/2023 10:09 AM HOSE FINISHER 10/14/2023 11:05 AM HOSE FINISHER [facility] PAC CHEMISTRY ORDERABLES Cristy l Result Performing Organization Address City/[facility]/ZIP Co de Phone Number [facility] [address] [place] [address] * (ABNORMAL) VITAMIN B12 (10/14/2023 10:09 AM HOSE FINISHER) VITAMIN B12 >2,000(H) 213 - 816 pg/mL 10/14/2023 12:02 PM HOSE FINISHER [facility] Blood Venipuncture / Unknown 10/14/2023 10:09 AM HOSE FINISHER 10/14/2023 11:05 AM HOSE FINISHER [facility] PAC CHEMISTRY ORDERABLES Cristy l Result Performing Organization Address City/[facility]/ZIP Co de Phone Number [facility] [address] [place] [address] * (ABNORMAL) IRON,TRANSFERN,CALC.TIBC,%SAT (08/14/2023 10:07 AM HOSE FINISHER) IRON 42 25 - 156 mcg/dL 08/14/2023 12:24 PM HOSE FINISHER [facility] TRANSFERRIN 362 180 - 382 mg/dL 08/14/2023 12:24 PM HOSE FINISHER [facility] TIBC, CALCULATED 453 265 - 497 mcg/dL 08/14/2023 12:24 PM HOSE FINISHER [facility] % SATURATION * 9(L) 15 - 62 % 08/14/2023 12:24 PM HOSE FINISHER [facility] Blood Venipuncture / Unknown 08/14/2023 10:07 AM HOSE FINISHER 08/14/2023 11:38 AM HOSE FINISHER Andry Brenner PAC CHEMISTRY ORDERABLES Cristy l Result [facility] [address] [place] [address] * (ABNORMAL) IMMUNOFIXATION W/ ELECTROPHORESIS SERUM (08/14/2023 10:07 AM HOSE FINISHER) TOTAL PROTEIN 7.2 6.3 - 8.2 g/dL 08/19/2023 11:40 AM [facility] % ALBUMIN 54.4(L) 55.8 - 66.7 % 08/19/2023 11:40 AM [facility] ALBUMIN SERUM 3.9 2.5 - 5.4 g/dL 08/19/2023 11:40 AM [facility] % ALPHA 1 GLOBULIN 3.3 2.9 - 4.9 % 08/19/2023 11:40 AM [facility] ALPHA 1 0.2 0.2 - 0.4 g/dL 08/19/2023 11:40 AM [facility] % ALPHA 2 GLOBULIN 9.9 7.1 - 11.8 % 08/19/2023 11:40 AM [facility] ALPHA 2 0.7 0.5 - 1.0 g/dL 08/19/2023 11:40 AM [facility] % BETA 14.8(H) 8.4 - 13.1 % 08/19/2023 11:40 AM [facility] BETA-GLOBULIN 1.1 0.5 - 1.1 g/dL 08/19/2023 11:40 AM [facility] % GAMMA GLOBULIN 17.6 11.1 - 18.8 % 08/19/2023 11:40 AM [facility] GAMMA 1.3 0.7 - 1.5 g/dL 08/19/2023 11:40 AM [facility] IMMUNOGLOBULIN G 1,197 552 - 1,631 mg/dL 08/19/2023 11:40 AM [facility] IMMUNOGLOBULIN A 203 65 - 421 mg/dL 08/19/2023 11:40 AM HOSE FINISHER [facility] IMMUNOGLOBULIN M 104 33 - 293 mg/dL 08/19/2023 11:40 AM HOSE FINISHER [facility] INTERPRETATION SERUM No abnormal protein band is detected by serum protein electrophoresis. Serum immunofixation electrophoresis is negative for monoclonal immunoglobulins. Reviewed by Abdirahman Valentine, Ph.D. 08/19/2023 11:40 AM HOSE FINISHER [facility] A/G RATIO, SERUM 1.2 08/19/20 11:40 AM HOSE FINISHER [facility] Blood Venipuncture / Unknown 08/14/2023 10:07 AM HOSE FINISHER 08/14/2023 11:37 AM HOSE FINISHER Narrative [facility] - 08/19/2023 11:40 AM HOSE FINISHER Reviewed by Emiliano Fulton M.D. [facility] PAC CHEMISTRY ORDERABLES Cristy l Result Performing Organization Address City/[facility] Co de Phone Number [facility] [address] [place] [address], [place] * (ABNORMAL) FREE KAPPA & LAMBDA LIGHT CHAINS SERUM (08/14/2023 10:07 AM HOSE FINISHER) Free Owenton Lt Chn 23.37(H) 3.30 - 19.40 mg/L 08/17/2023 11:03 AM HOSE FINISHER [facility] Free Lambda Lt Chn 14.89 5.71 - 26.30 mg/L 08/17/2023 11:03 AM HOSE FINISHER [facility] free angelo george ratio 1.57 0.26 - 1.65 08/17/2023 11:03 AM HOSE FINISHER [facility] Blood Venipuncture / Unknown 08/14/2023 10:07 AM HOSE FINISHER 08/14/2023 11:37 AM HOSE FINISHER [facility] PAC CHEMISTRY ORDERABLES Cristy l Result Performing Organization Address [facility] Co de Phone Number [facility] [address] [place] [address], [place] * LACTATE DEHYDROGENASE (LD) (08/14/2023 10:07 AM HOSE FINISHER) LDH 202 125 - 220 U/L 08/14/2023 12:24 PM HOSE FINISHER [facility] Blood Venipuncture / Unknown 08/14/2023 10:07 AM HOSE FINISHER 08/14/2023 11:38 AM HOSE FINISHER [facility] PAC CHEMISTRY ORDERABLES Cristy l Result [facility] [address] [place] [address] * RETICULOCYTE COUNT (RETIC) (08/14/2023 10:07 AM HOSE FINISHER) RETICULOCYTES 0.7 0.5 - 2.0 % 08/14/2023 11:45 AM HOSE FINISHER [facility] Blood Venipuncture / Unknown 08/14/2023 10:07 AM HOSE FINISHER 08/14/2023 11:38 AM HOSE FINISHER [facility] PAC HEMATOLOGY ORDERABLES Fin al Result Performing Organization Address City/[facility]/ZIP Co de Phone Number [facility] [address] [place] [address] * VITAMIN B12 (08/14/2023 10:07 AM HOSE FINISHER) VITAMIN B12 783 213 - 816 pg/mL 08/14/2023 12:57 PM HOSE FINISHER [facility] Blood Venipuncture / Unknown 08/14/2023 10:07 AM HOSE FINISHER 08/14/2023 11:37 AM HOSE FINISHER [facility] PAC CHEMISTRY ORDERABLES Cristy l Result Performing Organization Address City/[facility]/ZIP Co de Phone Number [facility] [address] [place] [address] * CMP (COMPREHENSIVE METABOLIC PANEL) (08/14/2023 10:07 AM [facility]) SODIUM 144 136 - 145 mmol/L 08/14/2023 12:24 PM [facility] POTASSIUM 3.8 3.5 - 5.1 mmol/L 08/14/2023 12:24 PM [facility] CHLORIDE 106 98 - 107 mmol/L 08/14/2023 12:24 PM [facility] CO2, VENOUS 28 22 - 30 mmol/L 08/14/2023 12:24 PM [facility] ANION GAP 13.8 <18.0 mmol/L 08/14/2023 12:24 PM [facility] GLUCOSE 92 70 - 99 mg/dL 08/14/2023 12:24 PM [facility] BUN 11 10 - 20 mg/dL 08/14/2023 12:24 PM [facility] CREATININE, BLOOD 0.77 0.60 - 1.00 mg/dL 08/14/2023 12:24 PM [facility] BUN/CREATININE RATIO 14 12 - 20 ratio 08/14/2023 12:24 PM [facility] TOTAL PROTEIN 7.5 6.3 - 8.2 g/dL 08/14/2023 12:24 PM [facility] ALBUMIN 4.4 3.5 - 5.0 g/dL 08/14/2023 12:24 PM [facility] A/G RATIO 1.4 1.0 - 2.2 08/14/2023 12:24 PM [facility] CALCIUM 9.2 8.7 - 10.5 mg/dL 08/14/2023 12:24 PM [facility] T BILI 0.4 0.2 - 1.2 mg/dL 08/14/2023 12:24 PM [facility] SGOT (AST) 24 5 - 34 U/L 08/14/2023 12:24 PM [facility] SGPT (ALT) 15 0 - 55 U/L 08/14/2023 12:24 PM HOSE FINISHER [facility] ALKALINE PHOSPHATASE 90 40 - 150 U/L 08/14/2023 12:24 PM HOSE FINISHER [facility] IS THE PATIENT REQUIRED TO BE FASTING? No 08/14/2023 12:24 PM HOSE FINISHER [facility] GFR, ESTIMATED >60 >=60 08/14/2023 12:24 PM HOSE FINISHER [facility] Comment: Creatinine Clearance is the preferred criteria for selecting drug dose adjustments in renally impaired patients. ??The GFR is provided as additional pertinent clinical information. GFR is reported in mL/min/1.73 sq m. Calculation based on the Chronic Kidney Disease Epidemiology Collaboration (CKD- EPI) equation refit without adjustment for race. GFR, EST. >60 >=60 023 12:24 PM HOSE FINISHER [facility] GFR, EST. NONAFRICAN >60 >=60 08/14/2023 12:24 PM HOSE FINISHER [facility] Blood Venipuncture / Unknown 08/14/2023 10:07 AM HOSE FINISHER 08/14/2023 11:38 AM HOSE FINISHER [facility] PAC CHEMISTRY ORDERABLES Cristy l Result [facility] [address] [place] [address] * FERRITIN (08/14/2023 10:07 AM HOSE FINISHER) FERRITIN 7 5 - 204 ng/mL 08/14/2023 12:35 PM HOSE FINISHER [facility] Blood Venipuncture / Unknown 08/14/2023 10:07 AM HOSE FINISHER 08/14/2023 11:38 AM HOSE FINISHER [facility] PAC CHEMISTRY ORDERABLES Cristy l Result [facility] [address] [place] [address] * FOLIC ACID (FOLATE) (08/14/2023 10:07 AM HOSE FINISHER) FOLATE 8.4 7.0 - 31.4 ng/mL 08/14/2023 12:57 PM HOSE FINISHER [facility] IS THE PATIENT REQUIRED TO BE FASTING? No 08/14/2023 12:57 PM HOSE FINISHER [facility] Blood Venipuncture / Unknown 08/14/2023 10:07 AM HOSE FINISHER 08/14/2023 11:37 AM HOSE FINISHER us Andry Brenner PAC CHEMISTRY ORDERABLES Cristy l Result [facility] [address] [place] [address] documented in this encounter Visit Diagnoses Diagnosis Anemia, unspecified type- Primary documented in this encounter Care Teams Aircraft Maintenance Supervisor Relationship Specialty Start Date End Date Parmjit Dai MD [address] [place] [address] [address] [address] PCP - General Family Medicine 05/21/22 Jazmine Kulkarni MD [address] [place] [address] [address] [place] [place] [address] Family Medicine 05/21/22 documented as of this encounter
--- OUTSIDE RECORDS SUMMARY | 2024-08-16 04:31 | XMS_ITS | Encounter Summary ---
Author Organization [facility] Address [address] [place] [address] Phone Care Team Providers Care Supply Chain Design Manager Name Role Phone Meer Landa NP Unavailable [phone] Parmjit Dai MD Primary Care Provider [phone] Tico Burton MD Unavailable [phone] Ivan Liang MD Unavailable Encounter Details Date Type Department Care Team (Late st Contact Info) Description 02/12/2024 Telephone [facility] Gastroenterology [address] [place] [address] [place] [address] Katharine Carty Social History Tobacco Use Types Packs/Day Years Used Date Smoking Tobacco: Former Cigarettes 1 4 - 1999 Vaping Smokeless Tobacco: Never Comments:off and on Alcohol Use Standard Drinks/Week Comments No 0 (1 standard drink = 0.6 oz pur e alcohol) on occasion [facility] Utilities Answer Date Recorded In the past 12 months has [employer], gas, oil, or water company threatened to shut off services in your home? No 09/09/2023 Social Connection and Isolat ion Panel [NHANES] Answer Date Recorded In a typical week, how many times do you talk on the phone with family, friends, or neighbors? More than three times a week 09/09/2023 How often do you get togethe r with friends or relatives? More than three times a week 09/09/2023 How often do you attend chur ch or holiness services? Never 09/09/2023 Do you belong to any clubs o r organizations such as jewish groups, unions, fraternal or athletic groups, or school groups? No 09/09/2023 How often do you attend meet ings of the clubs or organizations you belong to? Never 09/09/2023 Are you , , di vorced, , never , or living with a partner? 09/09/2023 AUDIT-C Answer Date Recorded Q1: How often do you have a drink containing alcohol? Never 09/24/2023 Q2: How many drinks containi ng alcohol do you have on a typical day when you are drinking? Patient does not drink Frequency of Binge Drinking Not on file 09/01 Overall Financial Resource Strain (CARDIA) Answe r Date Recorded How hard is it for you to pa y for the very basics like food, housing, medical care, and heating? Not hard at all 09/09/2023 PHQ-2 Answer Date Recorded PHQ-2 Total Score (If total score is 3 or more points, staff should administer the PHQ-9) 0 08/09/2021 Hunger Vital Sign Answer Date Recorded Within the past 12 months, y ou worried that your food would run out before you got the money to buy more. Never true 09/09/19 24 Within the past 12 months, t he food you bought just didn't last and you didn't have money to get more. Never true 09/09/2023 PRAPARE - Transportation Answer Date Re corded In the past 12 months, has l ack of transportation kept you from medical appointments or from getting medications? No 08/31 In the past 12 months, has l ack of transportation kept you from meetings, work, or from getting things needed for daily living? No 09/09/2023 Housing Stability Vital Sign Answer Loco e Recorded In the last 12 months, was t here a time when you were not able to pay the mortgage or rent on time? No 09/09/2023 In the last 12 months, how many places have you lived? 1 09/09/2023 In the last 12 months, was t here a time when you did not have a steady place to sleep or slept in a long-term (including now)? No 09/09/2023 Personal Safety Answer Date Recorded Have you ever been in or are you currently in a harmful physical or emotional relationship or is someone making you feel afraid or unsafe? Denies 02/08/2024 Comments No Sex and Gender Information Value Date Recorded Sex Assigned at Not on file Legal Sex Female 10:06 AM APPLICATION PERFORMANCE ENGINEER Gender Identity Female 06/17/2024 7:02 AM CDT Sexual Orientation Not on file documented as of this encounter Miscellaneous Notes * Telephone Encounter - Evelyn Kerns LPN - 02/12/2024 9:53 AM CDT Refill sent. Sees Dr. Negron 02/19/24. * Telephone Encounter - Katharine Carty - 02/12/2024 9:28 AM CDT Images from the original note were not included. Received refill request via fax. documented in this encounter Plan of Treatment Upcoming Encounters Date Type Department Care Team (Latest Contact Info) Description 09/07/2024 8:30 AM APPLICATION PERFORMANCE ENGINEER Hospital Encounter [facility] [address] [place] [phone] Forest Catherine MD [address] [address] 09/07/2024 8:30 AM APPLICATION PERFORMANCE ENGINEER - 09/07/2024 9:00 AM APPLICATION PERFORMANCE ENGINEER Surgery [facility] [address] [place] [phone] Forest Catherine MD [address] [address] EGD w/Endo Flip & YI placement Scheduled Procedures Name Priority Associated Diagnoses Date/Ti me ESOPHAGOGASTRODUODENOSCOPY Hiatal hernia Gastroesophageal reflux disease, unspecified whether esophagitis present 09/07/2024 8:30 AM APPLICATION PERFORMANCE ENGINEER documented as of this encounter Visit Diagnoses Not on filedocumented in this encounter Care Teams Supply Chain Design Manager Relationship Specialty Start Date End Date Parmjit Dai MD PCP - General 12/31/20 Mere Landa NP Nurse Practitioner 02/07/20 Tico Burton MD Surgeon General Surgery 08/09/21 Ivan Liang MD Consulting Physician General Surgery 09/09/23 documented as of this encounter
--- OUTSIDE RECORDS SUMMARY | 2024-08-16 04:31 | XMS_ITS | Encounter Summary ---
Author Organization [facility] Address [address] [place] [address] Care Team Providers Care City Secretary Name Role Phone Mere Landa NP Unavailable [phone] Parmjit Dai MD Primary Care Provider [phone] Tico Burton MD Unavailable [phone] Ivan Liang MD Unavailable Reason for Visit * Auth/Cert (Routine) Specialty Diagnoses / Procedures Referred By Loreta t Referred To Contact Diagnoses Gastroesophageal reflux disease, unspecified whether esophagitis present Other chronic gastritis without hemorrhage Esophageal dysmotility Gastroesophageal reflux disease, unspecified whether esophagitis present [K21.9] Other chronic gastritis without hemorrhage [K29.50] Esophageal dysmotility [K22.4] Procedures WY ESOPHAGOGASTRODUODENOSCOPY TRANSORAL DIAGNOSTIC WY EGD REMOVAL TUMOR POLYP/OTHER LESION SNARE TECH ESOPHAGOGASTRODUODENOSCOPY with manometry catheter placement Referral ID Status Reason Start Date Expiration Date Visits Re quested Visits Authorized [id number] 1 1 Encounter Details Date Type Department Care Team (Latest Contact Info) Description 02/08/2024 8:00 AM CDT - 02/08/2024 8:30 AM CDT Surgery [facility] [place] [address] [facility] [address] [place] [address] Alecia Newman MD [address] [place] [address] ENDO ADD ON ESOPHAGOGASTRODUODENOSCOPY BIOPSY Surgery Details Date/Time Status Location OR Service Patient Class Case Class Case Type Trauma Case? 02/08/2024 8:00 AM Posted [facility] ENDOSCOPY GI 08 Gastroenterology Outpatient Elective Panel 1 Procedure LRB Anes Op Region Wound Class Comments ENDO ADD ON ESOPHAGOGASTRODUODENOSCOPY BIOPSY N/A Monitor Anesthesia Care N/A ESOPHAGOGASTRODUODENOSCOPY P LACE CATHETER/TUBE N/A Choice Surgeon Surgeon Role Service Panel Alecia Newman MD Primary Gastroenterology 1 documented in this encounter Social History Tobacco Use Types Packs/Day Years Used Date Smoking Tobacco: Former Cigarettes 1999 Vaping Smokeless Tobacco: Never Comments:off and on Alcohol Use Standard Drinks/Week Comments No 0 (1 standard drink = 0.6 oz pur e alcohol) on occasion [facility] Utilities Answer Date Recorded In the past 12 months has [employer], gas, oil, or water [employer] threatened to shut off services in your [...] often do you attend chur ch or zoroastrian services? Never 09/09/2023 Do you belong to any clubs o r organizations such as jain groups, unions, fraternal or athletic groups, or [...] place to sleep or slept in a intermediate (including now)? No 09/09/2023 Personal Safety Answer Date Recorded Have you ever been in or are you currently in a harmful physical or emotional relationship or is someone making you feel afraid or unsafe? 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 Gender Identity Female 06/17/2024 7:02 AM CDT Sexual Orientation Not on file documented as of this encounter Last Filed Vital Signs Vital Sign Reading Time Taken Comments Blood Pressure 116/71 02/08/2024 8:03 AM CDT Pulse 55 02/08/2024 8:03 AM CDT Temperature 36 ??C (96.8 ??F) 02/08/2024 8:03 AM CDT Respiratory Rate 20 02/08/2024 8:03 AM CDT Oxygen Saturation 100% 02/08/2024 8:03 AM CDT Inhaled Oxygen Concentration - - Weight 58.5 kg (129 lb) 02/08/2024 8:03 AM CDT Height 162.6 cm (5' 4 ) 02/08/2024 8:03 AM CDT Body Mass Index 22.14 02/08/2024 8:03 AM CDT documented in this encounter Medications at Time of Discharge albuterol HFA (PROVENTIL HFA,VENTOLIN HFA,PROAIR HFA) 90 mcg/actuation inhaler 2 puffs every 4 (four) hours as needed 04/03/2023 amitriptyline (ELAVIL) 10 mg tablet Take 1 tablet (10 mg total) by mouth nightly at bedtime 02/03/2024 apixaban (ELIQUIS) 5 mg tablet Take 1 tablet (5 mg total) by mouth 2 (two) times a day atorvastatin (LIPITOR) 40 mg tabletIndication s:hyperlipidemia Take 1 tablet (40 mg total) by mouth daily 30 tablet 1 08/13/2021 cephalexin (KEFLEX) 500 mg capsule Take 1 capsule (500 mg total) by mouth every 12 (twelve) hours 11/20/2023 dicyclomine (BENTYL) 20 mg tablet Take 1 tablet (20 mg total) by mouth 4 (four) times a day as needed (abdominal pain/cramping) 360 capsule 3 04/17/2023 docusate sodium (COLACE) 100 mg capsuleIndicatio ns:constipation Take 2 capsules (200 mg total) by mouth nightly famotidine (PEPCID) 20 mg tablet Take 1 tablet (20 mg total) by mouth daily as needed for indigestion or heartburn 180 tablet 3 04/17/2023 flecainide (TAMBOCOR) 100 mg tablet TAKE 1 TABLET BY MOUTH TWICE DAILY. START TAKING Saturday 07/0707/08/2022 meclizine (ANTIVERT) 12.5 mg tablet Take 1 tablet (12.5 mg total) by mouth 3 (three) times a day as needed 10/16/2023 metoprolol XL (TOPROL-XL) 25 mg extended release tablet Take 1 tablet (25 mg total) by mouth daily mirtazapine (REMERON) 15 mg tablet 11/18/2023 SUMAtriptan (IMITREX) 6 mg/0.5 mL injection 01/04/2024 busPIRone (BUSPAR) 10 mg tabletIndication s:Generalized Anxiety Disorder Take 1 tablet (10 mg total) by mouth 3 (three) times a day 90 tablet 1 11/26/2023 4 ondansetron (ZOFRAN) 8 mg tablet Take 0.5-1 tablets (4-8 mg total) by mouth every 6 (six) hours as needed for nausea or vomiting 20 tablet 3 10/08/[address] (PROTONIX) 40 mg EC tablet Take 1 tablet (40 mg total) by mouth 2 (two) times a day before breakfast and dinner 120 tablet 12/16/2023 4 prucalopride (MOTEGRITY) 2 mg tablet Take 1 tablet (2 mg total) by mouth daily 30 tablet 1 11/13/2023 4 documented as of this encounter Discharge Disposition Disposition Code Departure Means Destination Comment s Discharge to home or self care documented in this encounter H&P Notes * Alecia Newman MD - 02/08/2024 8:01 AM CDT Pre Endoscopy History and Physical Sarahyelise Mays is a 53 y.o. female who is here for Procedure(s): ESOPHAGOGASTRODUODENOSCOPY with manometry catheter placement The indication(s) for the procedure(s): dysphagia Past Medical History: Diagnosis Date A-fib (CMS/HCC) (HCC) Anemia Anxiety Arthritis Bipolar affect, depressed ([facility]) Chronic nausea 09/24/2021 Colon polyp Cyclic vomiting syndrome Depression GERD (gastroesophageal reflux disease) Headache, tension-type Hypertension Hypotension IBS (irritable bowel syndrome) Migraine Nausea and vomiting, unspecified vomiting type 12/18/2021 Stroke ([facility]) TIA Weight loss Past Surgical History: Procedure Laterality Date ABDOMINAL SURGERY 2012 hiatel hernia repair APPENDECTOMY ARTHROSCOPIC SURGERY Left 1984,1994,2001 knee SECTION 1992 CHOLECYSTECTOMY COLONOSCOPY 1-2yrs ago COLONOSCOPY 10/29/2022 ENDOMETRIAL ABLATION HERNIA REPAIR POLYPECTOMY TUBAL LIGATION Social History Tobacco Use Smoking status: Former Current packs/day: 0.00 Types: Vaping, Cigarettes Start date: 1983 Quit date: 1999 Years since quittin.4 Smokeless tobacco: Never Tobacco comments: off and on Substance and Sexual Activity Drug use: Yes Types: Marijuana Comment: occasionally last used 09-02-23 Sexual activity: Defer control/protection: Post-menopausal Alcohol Use: Not At Risk (09/24/2023) AUDIT-C Frequency of Alcohol Consumption: Never Average Number of Drinks: Patient does not drink Frequency of Binge Drinking: Not on file Family History Problem Relation Age of Onset Esophageal cancer Maternal Grandmother Heart disease Maternal Grandmother Stroke Maternal Grandmother Hypertension Maternal Grandmother Migraines Mother Allergies Allergen Reactions Metoclopramide Other (See comments) Had TIA after trying. Doesn't like the way it makes her body feel. Phenergan [Promethazine] Agitation Prochlorperazine Other (See comments) and Unknown made me feel weird, odd also agitation Zithromax [Azithromycin] Stomach upset Prior to Admission medications Medication Sig Start Date End Date Taking? Authorizing Provider amitriptyline (ELAVIL) 10 mg tablet Take 1 tablet (10 mg total) by mouth nightly at bedtime 02/03/24 Yes Rosanne Perez MD atorvastatin (LIPITOR) 40 mg tablet Take 1 tablet (40 mg total) by mouth daily 08/13/21 02/08/24 YesLetha Rose MD busPIRone (BUSPAR) 10 mg tablet Take 1 tablet (10 mg total) by mouth 3 (three) times a day 11/26/23 02/08/24 Yes Rose Negron MD dicyclomine (BENTYL) 20 mg tablet Take 1 tablet (20 mg total) by mouth 4 (four) times a day as needed (abdominal pain/cramping) 04/17/23 Yes Richard Bowman NP famotidine (PEPCID) 20 mg tablet Take 1 tablet (20 mg total) by mouth daily as needed for indigestion or heartburn 04/17/23 Yes Richard Bowman NP flecainide (TAMBOCOR) 100 mg tablet TAKE 1 TABLET BY MOUTH TWICE DAILY. START TAKING Saturday 07/0707/08/22 Yes Rosanne Perez MD metoprolol XL (TOPROL-XL) 25 mg extended release tablet Take 1 tablet (25 mg total) by mouth daily Yes Rosanne Perez MD ondansetron (ZOFRAN) 8 mg tablet Take 0.5-1 tablets (4-8 mg total) by mouth every 6 (six) hours as needed for nausea or vomiting 10/08/23 Yes Richard Bowman NP pantoprazole DR (PROTONIX) 40 mg EC tablet Take 1 tablet (40 mg total) by mouth 2 (two) times a daybefore breakfast and dinner 12/16/23 02/14/24 Yes Rose Negron MD albuterol HFA (PROVENTIL HFA,VENTOLIN HFA,PROAIR HFA) 90 mcg/actuation inhaler 2 puffs every 4 (four) hours as needed Patient not taking: Reported on 11/13/2023 04/03/23 Rosanne Perez MD apixaban (ELIQUIS) 5 mg tablet Take 1 tablet (5 mg total) by mouth 2 (two) times a day Rosanne Perez MD cephalexin (KEFLEX) 500 mg capsule Take 1 capsule (500 mg total) by mouth every 12 (twelve) hours 11/20/23 Rosanne Perez MD docusate sodium (COLACE) 100 mg capsule Take 2 capsules (200 mg total) by mouth nightly Rosanne Perez MD meclizine (ANTIVERT) 12.5 mg tablet Take 1 tablet (12.5 mg total) by mouth 3 (three) times a day asneeded 10/16/23 Rosanne Perez MD mirtazapine (REMERON) 15 mg tablet 11/18/23 Rosanne Perez MD prucalopride (MOTEGRITY) 2 mg tablet Take 1 tablet (2 mg total) by mouth daily 11/13/23 01/12/24 Rose Negron MD Review of Systems A pertinent, focused review of systems was completed and negative, except as noted above. OBJECTIVE: Vitals: There were no vitals filed for this visit. Physical Exam: Airway: No significant abnormality. Cardiac: No significant abnormality. Pulmonary: No significant abnormality. Neurological: No significant abnormality. Gastrointestinal: No significant abnormality. ASA Score: per Anesthesia Sedation/Anesthesia Plan: per Anesthesia The risks and complications of the procedure have been explained to the patient. Informed consent was signed. Impression and plan: Will proceed with the planned procedure for the reasons stated above. documented in this encounter Procedure Notes * Alecia Newman MD - 02/08/2024 8:02 AM CDTAssociated Order(s): EGD GI ENDOSCOPY [facility] Patient Name: Sarahy Mays Procedure Date: 02/08/2024 8:02 AM Date of : 1970 Admit Type: Outpatient Age: 53 Gender: Female Attending MD: Alecia Newman M.D. Room: [facility] ENDOSCOPY ROOM 8 Note Status: Finalized Procedure: Upper GI endoscopy Indications: Dysphagia Referring MD: Rose Negron M.D. Providers: Alecia Newman M.D. Medicines: Monitored Anesthesia Care Complications: No immediate complications. Estimated Blood Loss: Estimated blood loss was minimal. Estimated blood loss was minimal. Procedure: Pre-Anesthesia Assessment: - Immediately prior to administration of medications, the patient was re-assessed for adequacy to receive sedatives. The benefits, risks, and alternatives to the procedure and sedation were discussed and informed consent was obtained. The scope was passed under direct vision. The GIF H190 [id number] endoscope was introduced through the mouth, and advanced to the second part of duodenum. The upper GI endoscopy was accomplished without difficulty. The patient tolerated the procedure well. Findings: The Z-line was regular and was found 40 cm from the incisors. The distal esophagus was tortuous. Diffuse erythematous mucosa was found in the stomach. Biopsies were taken with a cold forceps for Helicobacter pylori testing. Two 2 to 4 mm mucosal papules (nodules) were found in the stomach. Biopsies were taken with a cold forceps for histology. Evidence of a fundoplication was found in the cardia. This was traversed. The examined duodenum was normal. A manometry probe catheter was placed under endoscopic guidance Impression: - Z-line regular, 40 cm from the incisors. - Tortuous esophagus. - Erythematous mucosa in the stomach. Biopsied. - Two mucosal papules (nodules) found in the stomach. Biopsied. - A fundoplication was found. - Normal examined duodenum. Recommendation: - Await pathology results. - Perform ambulatory esophageal manometry today. - Return to referring physician. Attending Participation: I personally performed the entire procedure. Electronically signed by Alecia Newman MD Alecia Newman M.D. 02/08/2024 8:37:35 AM . 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 Hospital Encounter [facility] [address] [place] [address] [phone] Forest Catherine MD [address] [address] 09/07/2024 8:30 AM 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 - 09/07/2024 9:00 AM 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 Surgery [facility] [address] [place] [phone] Forest Catherine MD [address] [address] EGD w/Endo Flip & YI placement Scheduled Procedures Name Priority Associated Diagnoses Date/Ti me ESOPHAGOGASTRODUODENOSCOPY Hiatal hernia Gastroesophageal reflux disease, unspecified whether esophagitis present 09/07/2024 8:30 AM 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 documented as of this encounter Procedures Procedure Name Priority Date/Time Associated Diagnosis Comments SURGICAL PATHOLOGY Routine 02/08/2024 8:18 AM CDT Gastroesophageal reflux disease, unspecified whether esophagitis present Other chronic gastritis without hemorrhage Esophageal dysmotility ESOPHAGOGASTRODUODENOSCOPY PLACE CATHETER/TUBE 02/08/2024 8:05 AM CDT Gastroesophageal reflux disease, unspecified whether esophagitis present Other chronic gastritis without hemorrhage Esophageal dysmotility ENDO ADD ON ESOPHAGOGASTRODUODENOSCOPY BIOPSY 02/08/2024 8:05 AM CDT Gastroesophageal reflux disease, unspecified whether esophagitis present Other chronic gastritis without hemorrhage Esophageal dysmotility EGD 02/08/2024 8:02 AM CDT documented in this encounter Results * Surgical pathology (02/08/2024 8:18 AM CDT) Tissue (Gastric/Stomach biopsy) 02/08/2024 8:18 AM CDT Comment:R\o h pylori Tissue (Gastric/Stomach biopsy) 02/08/2024 8:19 AM CDT Narrative PATHOLOGY [facility] - 02/09/2024 12:03 PM CDT EPIC results best viewed via link to PDF [facility] Katerine Lim [facility] [place] [address] [place] [address] Note to Patients: This report may contain a detailed description of human tissue sent by a health care provider to the laboratory for pathologic evaluation. The content of this report is essential for diagnosis and may provide important critical findings. This information may be unfamiliar to patients to review without a medical professional present. It is advised that the patient review this report in the presence of a health care provider who can answer questions and explain the details. SURGICAL PATHOLOGY REPORT FINAL Patient Name: ?? SARAHY MAYS Gender: ??F : ??1970 (Age: 53) Address: ??[address] [place] [address] ??[id number] Hospital #: ??[id number] Taken:02/08/2024 Received:02/08/2024 Reported: 02/09/2024 Patient Type: [facility] SDS ?? Service: Gastro Location: Physician(s): ??Alecia Newman M.D. Parmjit Dai M.D. Rose Negron M.D. Diagnosis: A. ??Stomach, random biopsy: ? - Antral and oxyntic mucosa with no significant abnormality. ? - No Helicobacter pylori is seen. B. ??Stomach, nodule, biopsy: ? - Oxyntic mucosa with foveolar hyperplasia, erosion, acute and chronic inflammation and reactive epithelial changes, in keeping with a gastric hyperplastic polyp. ? - Negative for intestinal metaplasia or dysplasia. ? - No Helicobacter pylori is seen. [facility]/02/09/2024 09:59 By this signature, I attest that the above diagnosis is based upon my personal examination of the slides(and/or other material indicated in the diagnosis). Deandre Hidalgo MD, PHD Report Electronically Reviewed and Signed Out By ??Deandre Hidalgo MD, PHD 02/09/2024 12:03:49 Jesica Salinas M.D. History: The patient is a 53-year-old woman with gastroesophageal reflux disease, other chronic gastritis without hemorrhage and esophageal dysmotility. ??Rule out H pylori. ??Operative procedure: ??Esophagogastroduodenoscopy biopsy. Specimen(s) Received: A: Random gastric cold biopsies B: Gastric nodule cold biopsies Gross Description: Received in two formalin jars labeled with the patient's identifiers. A. ??Labeled random gastric cold biopsies are two padron-white tissue fragments measuring 0.2 and 0.5 cm in greatest dimension. ??Entirely submitted in A1. ??Jar 0. ?? B. ??Labeled gastric nodule cold biopsies is a 0.4 cm in greatest dimension padron-white tissue fragment. ??Entirely submitted in B1. ??Jar 0. ? dxb/02/08/2024 15:34 PA(s): JOSE Ching PA([facility])CM By this signature, I attest that the above diagnosis is based upon my personal examination of the slides(and/or other material). Addenda/Procedures The performance characteristics of some immunohistochemical stains, fluorescence in-situ hybridization tests and immunophenotyping by flow cytometry cited in this report (if any) were determined by the Surgical Pathology and Flow Cytometry Departments at [facility] as part of an ongoing chemistry quality control analyst program and in compliance with federally mandated regulations drawn from the Clinical Laboratory Improvement Act of 1988 (CLIA '88). ??Some of these tests rely on the use of analyte specific reagents and are subject to specific labeling requirements by the US Food and Drug Administration. ??Such diagnostic tests may only be performed in a facility that is certified by the Department of Health and Human Services as a high complexity laboratory under CLIA '88. ??The FDA has determined that such clearance or approval is not necessary. ??This test is used for clinical purposes. ??It should not be regarded as investigational or for research. ??Nevertheless, federal rules concerning the medical use of analyte specific reagents require that the following disclaimer be attached to the report: This test was developed and its performance characteristics determined by the Surgical Pathology and Flow Cytometry Departments of [facility]. ??It has not been cleared or approved by the U. S. Food and Drug Administration. IMAGES AND SCANNED DOCUMENTS, IF INCLUDED, ONLY VIEWABLE IN PDF VERSION OF REPORT us Alecia Newman MD LAB PATHOLOGY ORDERABLES Final Result PATHOLOGY [facility] 3rd Floor [place], [place] [phone] * EGD (02/08/2024 8:02 AM CDT) Anatomical Region Laterality Modality Other Narrative Procedure Note Alecia Newman MD - 02/08/2024 8:02 AM CDT GI ENDOSCOPY [facility] Patient Name: Sarahy Mays Procedure Date: 02/08/2024 8:02 AM Date of : 1970 Admit Type: Outpatient Age: 53 Gender: Female Attending MD: Alecia Newman M.D. Room: [facility] ENDOSCOPY ROOM 8 Note Status: Finalized Procedure: Upper GI endoscopy Indications: Dysphagia Referring MD: Rose Negron M.D. Providers: Alecia Newman M.D. Medicines: Monitored Anesthesia Care Complications: No immediate complications. Estimated Blood Loss: Estimated blood loss was minimal. Estimated bloodloss was minimal. Procedure: Pre-Anesthesia Assessment: - Immediately prior to administration ofmedications, the patient was re-assessed for adequacy to receive sedatives. The benefits, risks, and alternatives to theprocedure and sedation were discussed and informed consentwas obtained. The scope was passed under direct vision. The GIF H190 [id number] endoscope was introducedthrough the mouth, and advanced to the second part of duodenum. The upper GI endoscopy was accomplished without difficulty. The patient tolerated the procedure well. Findings: The Z-line was regular and was found 40 cm from the incisors. The distal esophagus was tortuous. Diffuse erythematous mucosa was found in the stomach. Biopsies were taken with a cold forceps for Helicobacter pylori testing. Two 2 to 4 mm mucosal papules (nodules) were found in the stomach. Biopsies were taken with a cold forceps for histology. Evidence of a fundoplication was found in the cardia. This wastraversed. The examined duodenum was normal. A manometry probe catheter was placed under endoscopic guidance Impression: - Z-line regular, 40 cm from the incisors. - Tortuous esophagus. - Erythematous mucosa in the stomach. Biopsied. - Two mucosal papules (nodules) found in thestomach. Biopsied. - A fundoplication was found. - Normal examined duodenum. Recommendation: - Await pathology results. - Perform ambulatory esophageal manometry today. - Return to referring physician. Attending Participation: I personally performed the entire procedure. Electronically signed by Alecia Newman MD Alecia Newman M.D. 02/08/2024 8:37:35 AM . Number of Addenda: 0 Note Initiated On: 02/08/2024 8:02 AM us Alecia Newman MD ENDOSCOPY PROCEDURES Final Res ult documented in this encounter Visit Diagnoses Diagnosis Gastroesophageal reflux disease, unspecified whether esophagitis present Other chronic gastritis without hemorrhage Esophageal dysmotility Dyskinesia of esophagus Gastritis Unspecified gastritis and gastroduodenitis without mention of hemorrhage Gastroesophageal reflux disease, unspecified whether esophagitis present Other chronic gastritis without hemorrhage Esophageal dysmotility Dyskinesia of esophagus Hiatal hernia Diaphragmatic hernia without mention of obstruction or gangrene Gastroesophageal reflux disease, unspecified whether esophagitis present documented in this encounter Admitting Diagnoses Diagnosis Gastritis Unspecified gastritis and gastroduodenitis without mention of hemorrhage Gastroesophageal reflux disease Esophageal reflux Esophageal dysmotility Dyskinesia of esophagus documented in this encounter Administered Medications Inactive Administered Medications - up to 3 most recent administrations Medication Order MAR Action Action Date Dose Rate Site ondansetron (ZOFRAN) injection 4 mg 4 mg, intravenous, Administer over 2 Minutes, Every 6 hours PRN, nausea, vomiting, Starting on Thu02/08/24 at 0751, Pre-Procedure (GI) sodium chloride 0.9% flush 0.5-20 mL 0.5-20 mL, intra-catheter, As needed, line care, Starting on Thu02/08/24 at 0751, Pre-Procedure (GI), Flush volume based on line type and size. Flush before and after each use. , Indications: FlushingIndications:Flushing sodium chloride 0.9% infusion 30 mL/hr, intravenous, Continuous, Starting on Thu02/08/24 at 0830 Rate/Dose Verify 02/08/2024 8:05 AM CDT New Bag 02/08/2024 8:05 AM CDT 30 mL/hr 30 mL/hr documented in this encounter Historical Medications * This list may reflect changes made after this encounter. amitriptyline (ELAVIL) 10 mg tablet Take 1 tablet (10 mg total) by mouth nightly at bedtime 02/03/2024 added in this encounter Active and Recently Administered Medications Times are shown in CDT. Continuous Medication Order 02/06/2024 02/07/2024 02/08/2024 sodium chloride 0.9% infusion 30 mL/hr, intravenous, Continuous, Starting on Thu02/08/24 at 0830 0805 (New Bag - Prov ider: Tony Vazquez RN)0805 (Rate/Dose Verify - Provider: Marie Collazo CRNA)0903 (Stopped - Provider: Shanel Mario RN) PRN Medication Order 02/06/2024 02/07/2024 02/08/2024 ondansetron (ZOFRAN) injection 4 mg 4 mg, intravenous, Administer over 2 Minutes, Every 6 hours PRN, nausea, vomiting, Starting on Thu02/08/24 at 0751, Pre-Procedure (GI) sodium chloride 0.9% flush 0.5-20 mL 0.5-20 mL, intra-catheter, As needed, line care, Starting on Thu02/08/24 at 0751, Pre-Procedure (GI), Flush volume based on line type and size. Flush before and after each use. , Indications: Flushing documented in this encounter Orders Medications Ordered That Rg ht Not Have Been Administered Count Last Ordered Date First Ordered Date ondansetron (ZOFRAN) injection 4 mg 1 02/07 sodium chloride 0.9% flush 0.5-20 mL 1 01/29 Discharge Count Last Ordered Date First Orde red Date DISCHARGE PATIENT 1 02/08/2024 documented in this encounter Care Teams City Secretary Relationship Specialty Start Date End Date Parmjit Dai MD PCP - General 12/31/20 Mere Landa NP Nurse Practitioner 02/07/20 Tico Burton MD Surgeon General Surgery 08/09/21 Ivan Liagn MD Consulting Physician General Surgery 09/09/23 documented as of this encounter
--- OUTSIDE RECORDS SUMMARY | 2024-08-16 04:31 | XMS_ITS | Encounter Summary ---
Author Organization [facility] Address [address] [place] [address] Phone Care Team Providers Care Heavy Duty Mechanic Farm Equipment Name Role Phone Mere Landa NP Unavailable [phone] Parmjit Dai MD Primary Care Provider [phone] Tico Burton MD Unavailable + [phone] Ivan Liang MD Unavailable Encounter Details Date Type Department Care Team (Late st Contact Info) Description 07/21/2024 Orders Only [facility] Gastroenterology [address] Advanced Medicine 12th [place] [address] [place] [phone] Rose Negron MD [address] [place] [address] Chronic nausea (Primary Dx); Diarrhea, unspecified type Social History Tobacco Use Types Packs/Day Years Used Date Smoking Tobacco: Former Cigarettes 1 - 1999 Vaping Smokeless Tobacco: Never Comments:off and on Alcohol Use Standard Drinks/Week Comments No 0 (1 standard drink = 0.6 oz pur e alcohol) on occasion [facility] Utilities Answer Date Recorded In the past 12 months has [employer], gas, oil, or water company threatened to [...] often do you attend chur ch or latter-day services? Never 09/09/2023 Do you belong to any clubs o r organizations such as zoroastrian groups, unions, fraternal or athletic groups, or [...] place to sleep or slept in a group home (including now)? No 09/09/2023 Personal Safety Answer Date Recorded Have you ever been in or are you currently in a harmful physical or emotional relationship or is someone making you feel afraid or unsafe? Denies 02/08/2024 Comments No Sex and Gender Information Value Date Recorded Sex Assigned at Not on file Legal Sex Female 10:06 AM GROUNDWATER PROGRAMS DIRECTOR Gender Identity Female 06/17/2024 7:02 AM CDT Sexual Orientation Not on file documented as of this encounter Plan of Treatment Upcoming Encounters Date Type Department Care Team (Latest Contact Info) Description 09/07/2024 8:30 AM GROUNDWATER PROGRAMS DIRECTOR Hospital Encounter [facility] [address] [place] [phone] Forest Catherine MD [address] [address] 09/07/2024 8:30 AM GROUNDWATER PROGRAMS DIRECTOR - 09/07/2024 9:00 AM GROUNDWATER PROGRAMS DIRECTOR Surgery [facility] [address] [place] [phone] Forest Catherine MD [address] [address] EGD w/Endo Flip & YI placement Scheduled Orders Name Type Priority Associated Diagnoses Orde r Schedule C. difficile testing Stool Microbiology Routine Chronic nausea Diarrhea, unspecified type Expected: 07/21/2024, Expires: 07/21/2025 Scheduled Procedures Name Priority Associated Diagnoses Date/Ti me ESOPHAGOGASTRODUODENOSCOPY Hiatal hernia Gastroesophageal reflux disease, unspecified whether esophagitis present 09/07/2024 8:30 AM GROUNDWATER PROGRAMS DIRECTOR documented as of this encounter Visit Diagnoses Diagnosis Chronic nausea- Primary Nausea alone Diarrhea, unspecified type Hiatal hernia Diaphragmatic hernia without mention of obstruction or gangrene Gastroesophageal reflux disease, unspecified whether esophagitis present documented in this encounter Additional Health Concerns Infection Onset Date Last Indicated Resolved Time C. difficile suspected 07/21/2024 07/21/202407/22 3:05 AM GROUNDWATER PROGRAMS DIRECTOR documented as of this encounter Care Teams Heavy Duty Mechanic Farm Equipment Relationship Specialty Start Date End Date Parmjit Dai MD PCP - General 12/31/20 Mere Landa NP Nurse Practitioner 02/07/20 Tico Burton MD Surgeon General Surgery 08/09/21 Ivan Liang MD Consulting Physician General Surgery 09/09/23 documented as of this encounter
--- OUTSIDE RECORDS SUMMARY | 2024-08-16 04:31 | XMS_ITS | Encounter Summary ---
Author Organization [facility] Address [address] [place] [address] Phone Care Team Providers Care Community Sports Coordinator Name Role Phone Mere Landa NP Unavailable [phone] Parmjit Dai MD Primary Care Provider [phone] Tico Burton MD Unavailable [phone] Ivan Liang MD Unavailable Encounter Details Date Type Department Care Team (Late st Contact Info) Description 07/30/2024 Orders Only [facility] Scanning, Provider Social History Tobacco Use Types Packs/Day Years Used Date Smoking Tobacco: Former Cigarettes 1 4 - 1999 Vaping Smokeless Tobacco: Never Comments:off and on Alcohol Use Standard Drinks/Week Comments No 0 (1 standard drink = 0.6 oz pur e alcohol) on occasion [facility] Utilities Answer Date Recorded In the past 12 months has [employer], gas, oil, or water company threatened to [...] often do you attend chur ch or anabaptism services? Never 09/09/2023 Do you belong to any clubs o r organizations such as spiritism groups, unions, fraternal or athletic groups, or [...] place to sleep or slept in a senior care (including now)? No 09/09/2023 Personal Safety Answer Date Recorded Have you ever been in or are you currently in a harmful physical or emotional relationship or is someone making you feel afraid or unsafe? Denies 02/08/2024 Comments No Sex and Gender Information Value Date Recorded Sex Assigned at Not on file Legal Sex Female 10:06 AM WATERSHED ENGINEER Gender Identity Female 06/17/2024 7:02 AM CDT Sexual Orientation Not on file documented as of this encounter Plan of Treatment Upcoming Encounters Date Type Department Care Team (Latest Contact Info) Description 09/07/2024 8:30 AM WATERSHED ENGINEER Hospital Encounter [facility] [address] [place] [phone] Forest Catherine MD [address] [address] 09/07/2024 8:30 AM WATERSHED ENGINEER - 09/07/2024 9:00 AM WATERSHED ENGINEER Surgery [facility] [address] [place] [phone] Forest Catherine MD [address] [address] EGD w/Endo Flip & YI placement Scheduled Procedures Name Priority Associated Diagnoses Date/Ti me ESOPHAGOGASTRODUODENOSCOPY Hiatal hernia Gastroesophageal reflux disease, unspecified whether esophagitis present 09/07/2024 8:30 AM WATERSHED ENGINEER documented as of this encounter Procedures Procedure Name Priority Date/Time Associated Diagnosis Comments SCAN - RADIOLOGY/IMAGING 07/30/2024 documented in this encounter Results * SCAN - RADIOLOGY/IMAGING (07/30/2024) Anatomical Region Laterality Modality Other us Provider Scanning Final Result documented in this encounter Visit Diagnoses Not on filedocumented in this encounter Care Teams Community Sports Coordinator Relationship Specialty Start Date End Date Parmjit Dai MD PCP - General 12/31/20 Mere Landa V., BOX ORDER PERSON Nurse Practitioner 02/07/20 Tico Burton MD Surgeon General Surgery 08/09/21 Ivan Liang MD Consulting Physician General Surgery 09/09/23 documented as of this encounter
--- OUTSIDE RECORDS SUMMARY | 2024-08-16 04:31 | XMS_ITS | Clinical Summary ---
Author Organization [facility]Care Care Team Providers Care Quality Improvement Manager Name Role Phone Mere Landa NP Unavailable [phone] Parmjit Dai MD Primary Care Provider [phone] Tico Burton MD Unavailable [phone] Ivan Liang MD Unavailable Allergies Active Allergy Reactions Criticality Noted Date Comments Metoclopramide Other (See comments) Low 09/24/2021 Had TIA after trying. Doesn't like the way it makes her body feel. Promethazine Agitation Low 08/08/2021 Prochlorperazine Other (See comments),Unknown Low 02/23/2018 made me feel weird, odd also agitation Azithromycin Stomach upset Low 02/23/2018 Medications apixaban (ELIQUIS) 5 mg tablet Take 1 tablet (5 mg total) by mouth 2 (two) times a day Active metoprolol XL (TOPROL-XL) 25 mg extended release tablet Take 1 tablet (25 mg total) by mouth daily Active atorvastatin (LIPITOR) 40 mg tabletIndication s:hyperlipidemia Take 1 tablet (40 mg total) by mouth daily 30 tablet 1 1 Active flecainide (TAMBOCOR) 100 mg tablet TAKE 1 TABLET BY MOUTH TWICE DAILY. START TAKING Saturday 07/07 2 Active albuterol HFA (PROVENTIL HFA,VENTOLIN HFA,PROAIR HFA) 90 mcg/actuation inhaler 2 puffs every 4 (four) hours as needed 3 Active famotidine (PEPCID) 20 mg tablet Take 1 tablet (20 mg total) by mouth daily as needed for indigestion or heartburn 180 tablet 3 3 Active dicyclomine (BENTYL) 20 mg tablet Take 1 tablet (20 mg total) by mouth 4 (four) times a day as needed (abdominal pain/cramping) 360 capsule 3 3 Active docusate sodium (COLACE) 100 mg capsuleIndicatio ns:constipation Take 2 capsules (200 mg total) by mouth nightly Active meclizine (ANTIVERT) 12.5 mg tablet Take 1 tablet (12.5 mg total) by mouth 3 (three) times a day as needed 4 Active cephalexin (KEFLEX) 500 mg capsule Take 1 capsule (500 mg total) by mouth every 12 (twelve) hours 4 Active mirtazapine (REMERON) 15 mg tablet 4 Active amitriptyline (ELAVIL) 10 mg tablet Take 1 tablet (10 mg total) by mouth nightly at bedtime 4 Active ondansetron (ZOFRAN) 8 mg tablet Take 0.5-1 tablets (4-8 mg total) by mouth every 6 (six) hours as needed for nausea or vomiting 20 tablet 3 4 Active linaCLOtide (LINZESS) 72 mcg capsuleIndicatio ns:Constipation Predominant Irritable Bowel Syndrome Take 1 capsule (72 mcg total) by mouth daily 30 capsule 2 4 Active SUMAtriptan (IMITREX) 6 mg/0.5 mL injection 4 Active busPIRone (BUSPAR) 10 mg tabletIndication s:Generalized Anxiety Disorder Take 1 tablet (10 mg total) by mouth 2 (two) times a day 60 tablet 2 4 10/03/[address] (PROTONIX) 40 mg EC tablet Take 1 tablet (40 mg total) by mouth 2 (two) times a day before breakfast and dinner 60 tablet 2 4 02/05/20 25 Active Active Problems Problem Noted Date Diagnosed Date Dyssynergic defecation 04/11/2024 Gastroesophageal reflux disease 11/24/2023 Esophageal dysmotility 11/24/2023 Paresthesia of both lower extremities 10/28/2023 Slow transit constipation 09/24/2023 Small intestinal bacterial overgrowth (SIBO) Tubular adenoma of colon 09/24/2023 Chronic abdominal pain 09/09/2023 Iron deficiency anemia 09/09/2023 Severe protein-calorie malnutrition (CMS/HCC) 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 Continue bowel regimen if needed to avoid straining. No submerging incision for 1 more week. Light duty for another 2 weeks. Patient will call us back with any further questions or concerns. Assessment & Plan (09/03/2023 8:54 AM CAFE HELPER): I will discuss her case with GI. The patient is at the point where she is willing to undergo an appendectomy to see if this improves her symptoms. We have discussed that in unfortunately may not relieve any of her current complaints. She is in understanding. Given her full anticoagulation use we will contact her primary care to ensure we can hold this. She is in understanding of the plan. Abdominal pain 07/21/2023 Dyspepsia 07/21/2023 Colitis 09/10/2022 Overview (09/10/2022): Added automatically from request for surgery [id number] Cyclical vomiting 09/05/2022 Gastritis 09/05/2022 Gastroesophageal reflux dise ase with esophagitis without hemorrhage 06/03/2022 Chronic superficial gastritis without bleeding 0 01/17/2022 Chronic anemia 01/17/2022 Nausea and vomiting 12/18/2021 Marijuana use 12/18/2021 Assessment & Plan (12/19/2021 4:23 PM CDT): Patient admits to daily marijuana use. Possibly contributing to cyclic vomiting. Have advised pt to stop smoking. - UDS: Positive for cannabinoid Nausea and vomiting, unspecified vomiting type 0 12/18/2021 History of colonoscopy with polypectomy 10/07/19 22 Hepatic steatosis 10/04/2021 Periumbilical abdominal pain 09/24/2021 Irritable bowel syndrome wit h both constipation and diarrhea 09/24/2021 Chronic nausea 09/24/2021 History of repair of hiatal hernia 09/24/2021 Gastroesophageal reflux disease without esophagi tis 09/24/2021 Dysuria 08/13/2021 Assessment & Plan (08/13/2021 9:33 AM CAFE HELPER): Pt complains of pain with urination. Pt also complains of suprapubic pain. Plan - Urine analysis TIA (transient ischemic attack) 08/11/2021 Assessment & Plan (08/13/2021 9:29 AM CAFE HELPER): Sarahy Gill 51-year-old female presenting with left facial droop and left face tingling sensation. Not a tPA candidate. NA score of 2. Has had previous similar event. Currently back to baseline without any deficits. CT of head showing no intracranial findings, most likely TIA rather than CVA, due to the findings on the CT and MRI. MRI 08/12: Mild chronic ischemic microangiopathy. No acute intracranial abnormality or recent infarction Echo:Normal left ventricular systolic function with no focal wall motion abnormalities. Normal left ventricular size. Left ventricular wall thickness upper limits of normal. Normal left ventricular diastolic function. Ejection fraction is visually estimated at 60-70 % Ultrasound of carotid arteries: Less than 50% of stenosis. Continue aspirin 325 Continue atorvastatin 40 mg Assessment & Plan (08/12/2021 6:00 PM CAFE HELPER): Sarahy Gill 51-year-old female presenting with left facial droop and left face tingling sensation. Not a tPA candidate. NA score of 2. Has had previous similar event. Currently back to baseline without any deficits. CT of head showing no intracranial findings, most likely TIA rather than CVA, due to the findings on the CT and MRI. MRI was done today: Mild chronic ischemic microangiopathy. No acute intracranial abnormality or recent infarction Echo was done pending results Ultrasound of carotid arteries: Less than 50% of stenosis. Continue aspirin 325 Continue atorvastatin 40 mg Cyclic vomiting syndrome 08/09/2021 Assessment & Plan (12/19/2021 4:30 PM CDT): Patient has history of cyclic vomiting syndrome, and chronic marijuana use. Unclear as to what could be the cause as she does report recent marijuana use. Patient reports allergy to Compazine, Phenergan, Reglan. Previously tolerated as home medications and received in hospital. Unclear as if these are real allergies. EGD today: Unremarkable. Patient started on nortriptyline but did not take last night. Reports worried about possible side effects and interactions with other medications. Says she will take tonight. - UDS screen positive for cannabinoids: Have advised to stop - Nortriptyline per GI - p.r.n. Haldol, Zofran, hydroxyzine - Protonix - Diet progression as tolerated - GI on consult appreciate recommendations Assessment & Plan (08/09/2021 6:14 PM CAFE HELPER): Patient has a history of IBS with cyclic vomiting syndrome Patient smokes prescription strength marijuana daily Continue Zofran Started Reglan Monitoring electrolytes IV fluids as needed Will continue to monitor Bipolar affect, depressed 08/09/2021 Assessment & Plan (12/18/2021 5:11 PM CDT): Patient has history of bipolar disease depression type. Currently denies any suicidal homicidal ideation. Says that she is doing well overall and is stable at this time. Will continue home psych meds. Patient continued on citalopram 10 mg q.day, escitalopram 0.5 mg Q a.m., nortriptyline 25 mg Q nightly, venlafaxine 37.5 mg q.day - patient receiving hydroxyzine and Haldol p.r.n. for cyclic vomiting, will also help with agitation/anxiety Assessment & Plan (08/13/2021 9:30 AM CAFE HELPER): Currently mood at baseline. Continue home med Celexa Assessment & Plan (08/12/2021 5:53 PM CAFE HELPER): Currently mood at baseline. Continue home med Celexa Assessment & Plan (08/09/2021 6:30 PM CAFE HELPER): Per patient has a history of bipolar depressive type Stable at this time Not currently on any medication Patient denies any suicidal homicidal ideation Intussusception intestine (CMS/HCC) 08/09/2021 Assessment & Plan (08/09/2021 6:36 PM CAFE HELPER): 08/08/2021 CT abdomen/pelvis with contrast: Possible cystitis, short segmental jejunal to jejunal intussusception measuring 3.5 cm in left upper quadrant 08/09/2021 CT abdomen/pelvis with contrast: Intussusception no longer visualized Patient receiving IV fluid Reglan motility help Zofran for nausea Patient tolerating p.o. food and liquid Will continue to monitor and discharged home tomorrow Hypertension 08/08/2021 Assessment & Plan (12/18/2021 4:38 PM CDT): Have reviewed 24 hour blood pressures and stable at this time. BP: (96-145)/(57-96) 100/61 - will continue home blood pressure medications metoprolol XL 25 mg q.day Assessment & Plan (08/13/2021 9:29 AM CAFE HELPER): Blood pressure has been under control Metoprolol restarted Assessment & Plan (08/12/2021 5:49 PM CAFE HELPER): Blood pressure has been under control Metoprolol has been on hold-to allow for permissive hypertension for the next 24 hours, will restart tomorrow Assessment & Plan (08/09/2021 6:31 PM CAFE HELPER): Have reviewed 24 hour blood pressures and patient is stable Home Metoprolol with hold parameters as patient has AFib Patient on IV fluids Abdominal pain, generalized 08/08/2021 Assessment & Plan (12/19/2021 4:23 PM CDT): Patient reports generalized abdominal pain with multiple admissions for intussusception, cyclic vomiting. - CT abdomen and pelvis: Mild urinary bladder wall thickening, stomach and small bowel are normal in course and caliber without evidence of obstruction,: Normal, pending ox normal, tiny fat containing periumbilical hernia is noted. - UA unremarkable with conditions not met for culture - patient on home Bentyl, nortriptyline, venlafaxine - p.r.n. Haldol, hydroxyzine, Zofran, MiraLax, - GI on consult: Assessment & Plan (08/09/2021 6:12 PM CAFE HELPER): CT abdomen pelvis with contrast at [place] yesterday showed intussusception CT abdomen pelvis with contrast at [facility]: Showed resolution of intussusception Patient has generalized abdominal pain that is chronic in nature. Associated nausea and vomiting: On Zofran p.r.n. Atrial fibrillation (CMS/HCC) 05/15/2020 Assessment & Plan (12/18/2021 4:41 PM CDT): Patient has history of AFib. Currently normal sinus rhythm. - Anticoagulation: Eliquis 5 mg b.i.d. - Rate control: Metoprolol XL 25 mg q.day, flecainide 50 mg b.i.d. - Pt on telemetry at this time - will continue to monitor Assessment & Plan (08/13/2021 9:29 AM CAFE HELPER): Currently in sinus rhythm. Eliquis on hold will resume on August 15. Continue with flecainide Metoprolol restarted Assessment & Plan (08/12/2021 5:54 PM CAFE HELPER): Currently in sinus rhythm. Eliquis on hold will resume on August 15. Continue with flecainide Metoprolol on hold will resume tomorrow Assessment & Plan (08/09/2021 6:18 PM CAFE HELPER): No acute events since admission Patient on Eliquis Metoprolol for rate control with hold parameters Will continue to monitor Essential tremor 10/12/2018 Assessment & Plan (08/13/2021 9:30 AM CAFE HELPER): B/l hand with tremor - no changes in strength Assessment & Plan (08/09/2021 6:30 PM CAFE HELPER): Patient reports after waking up had increase in the essential tremor Patient on beta-isaias No other focal deficit LFTs, electrolytes within normal range Patient denies drug or alcohol use: Will get tox screen to rule out withdrawal Will continue to monitor Jerky body movements 10/12/2018 Irritable bowel syndrome wit h both constipation and diarrhea 02/23/2018 Assessment & Plan (12/18/2021 4:50 PM CDT): She is currently denying any diarrhea but reports constipation. Patient states she was recently seen by GI who started lubiprostone 24 b.i.d.. She has not started this medication. - Started home lubiprostone, Miralax and Pericolace - continue Bentyl - GI on consult Assessment & Plan (08/13/2021 9:30 AM CAFE HELPER): Currently in no acute exacerbation. -continue Bentyl Assessment & Plan (08/12/2021 5:47 PM CAFE HELPER): Currently in no acute exacerbation. -continue Bentyl Assessment & Plan (08/09/2021 6:15 PM CAFE HELPER): Patient on Bentyl Monitoring electrolytes Assessment & Plan (05/21/2018 3:02 PM CDT): Recurrent bloating pain and erratic bms. No access to results of tests from elsewhere. PE neg today. Offered repeat egd/colon but this is ibs-d for all purposes so will try hi fiber diet and recap in 4 weeks. Assessment & Plan (02/23/2018 4:10 PM CDT): Many years of epi and diffuse abd pain often pc assoc with D. No blood. Has had 2 CT scans, 4 EGDs and 2 colonoscopies. Has been told colitis on basis of CT. Has been treated unsuccesssfully with acid reducers and gluten abstinence. Viberzi was offered but insurance wouldn't pay. My feeling is probably ibs-d. Will get all the records from [place] and then regroup to discuss possible treatment options. Orthostatic dizziness 09/16/2016 Palpitations 07/29/2016 Migraine headache 07/29/2016 Assessment & Plan (12/18/2021 4:59 PM CDT): Started home Topamax Assessment & Plan (08/09/2021 6:17 PM CAFE HELPER): Patient not complaining of headache or migraines at this time Sumatriptan on hold Hypokalemia Encounters Date Type Department Care Team Description 08/08/2024 E-Visit [facility] [address] [place] [address] Rose Negron MD Follow up visit with my primary physician 07/30/2024 Orders Only [facility] Scanning, Provider 07/21/2024 Orders Only [facility] [address] [address] [facility] [address] [place] [address] [place] [address] Rose Negron MD Chronic nausea (Primary Dx); Diarrhea, unspecified type 07/20/2024 Orders Only [facility] [address] [facility] [place] [address] [place] [address] Rose Negron MD 07/05/2024 Telephone [facility] [address] [place] [address] [place] [address] Katharine Carty 06/28/2024 Telephone [facility] [place] [facility] [address], [place] [address] Maura Ray RMA 06/23/2024 Telephone [facility] [address] [place] [phone] Spring Campos RN 06/23/2024 Telephone [facility] - [facility] Min[facility]ally Invasive Surgery [address] [facility] [address], [place] [address] Render, Maura E., RMA from Last 3 Months Immunizations Name Administration Dates Next Due Influenza, Unspecified 07/01/2022,05/01/2021 Surgical History Surgery Date Site/Laterality Comments HERNIA REPAIR CHOLECYSTECTOMY ENDOMETRIAL ABLATION TUBAL LIGATION SECTION 08/31/1992 - 08/30/1993 ARTHROSCOPIC SURGERY 1985,1994,2001 Left knee ABDOMINAL SURGERY 08/31/2012 - 08/30/2013 hiatel hernia repair COLONOSCOPY 1-2yrs ago POLYPECTOMY COLONOSCOPY 10/29/2022 APPENDECTOMY UPPER GASTROINTESTINAL ENDOSCOPY Medical History Medical History Date Comments Anxiety Depression Bipolar affect, depressed (HCC) Weight loss Headache, tension-type Migraine Cyclic vomiting syndrome Arthritis Hypertension Stroke (HCC) TIA IBS (irritable bowel syndrome) Hypotension A-fib (CMS/HCC) (HCC) Colon polyp Chronic nausea 09/24/2021 Nausea and vomiting, unspecified vomiting type 0 12/18/2021 Anemia GERD (gastroesophageal reflux disease) Family History Medical History Relation Name Comments Esophageal cancer Maternal Grandmother Heart disease Maternal Grandmother Hypertension Maternal Grandmother Stroke Maternal Grandmother Migraines Mother Relation Name Status Comments Maternal Grandmother Mother Social History Tobacco Use Types Packs/Day Years Used Date Smoking Tobacco: Former Cigarettes 1 - 1999 Vaping Smokeless Tobacco: Never Tobacco Cessation:Counseling Given: Not Answered Comments:off and on Alcohol Use Standard Drinks/Week Comments No 0 (1 standard drink = 0.6 oz pur e alcohol) on occasion [employer] Utilities Answer Date Recorded In the past 12 months has th e electric, gas, oil, or water [employer] threatened to shut off services in your [...] often do you attend chur ch or advent services? Never 09/09/2023 Do you belong to any clubs o r organizations such as hinduism groups, unions, fraternal or athletic groups, or [...] place to sleep or slept in a fci (including now)? No 09/09/2023 Personal Safety Answer Date Recorded Have you ever been in or are you currently in a harmful physical or emotional relationship or is someone making you feel afraid or unsafe? Denies 02/08/2024 Comments No Sex and Gender Information Value Date Recorded Sex Assigned at Not on file Legal Sex Female 10:06 AM CAFE HELPER Gender Identity Female 06/17/2024 7:02 AM CDT Sexual Orientation Not on file Obstetrics History Para Term AB IAB SAB Ectopic Multiple Livin g Live Births 8 6 6 Date Outcome GA Total Labor Labor/2nd/3rd Weight Sex Type Anes PTL Sherrie A1 A5 Name Clin Term Term Term Term Term Term Last Filed Vital Signs Vital Sign Reading Time Taken Comments Blood Pressure 98/64 04/20/2024 2:59 PM CDT Pulse 69 04/20/2024 2:59 PM CDT Temperature 36.8 ??C (98.2 ??F) 04/20/2024 2:59 PM CD T Respiratory Rate 16 04/20/2024 2:59 PM CDT Oxygen Saturation 98% 04/20/2024 2:59 PM CDT Inhaled Oxygen Concentration - - Weight 63 kg (139 lb) 04/20/2024 2:59 PM CDT Height 162.6 cm (5' 4 ) 04/20/2024 2:59 PM CDT Body Mass Index 23.86 04/20/2024 2:59 PM CDT Plan of Treatment Upcoming Encounters Date Type Department Care Team (Latest Contact Info) Description 09/07/2024 8:30 AM CAFE HELPER Hospital Encounter [facility] [address] [place] [phone] Forest Catherine MD [address] [address] 09/07/2024 8:30 AM CAFE HELPER - 09/07/2024 9:00 AM CAFE HELPER Surgery [facility] [address] [place] [address] [phone] Forest Catherine MD [address] [address] EGD w/Endo Flip & YI placement Scheduled Procedures Name Priority Associated Diagnoses Date/Ti me ESOPHAGOGASTRODUODENOSCOPY Hiatal hernia Gastroesophageal reflux disease, unspecified whether esophagitis present 09/07/2024 8:30 AM CAFE HELPER Health Maintenance Due Date Last Done Comments Cervical Cancer Screening 1970 Hepatitis C Screening 1970 Pneumococcal vaccine <65 (1 of 2 - PCV) 1974 Hepatitis B Screening 1986 Regular Well Visit/Exam 18-64 1986 Zoster Vaccine (1 of 2) 2018 Depression Screening 08/08/2022 08/08/2021 Covid-19 Vaccine (3 - 2023-2 5 season) 2024 02/20/2021, 01/23/2021 Influenza Vaccine (#1) 2024 , 07/01/2022, 06/18/2022, Additional history exists Breast Cancer Screening-Mammogram 11/10/2024 11/11/2023, 11/11/2023, 05/20/2022, Additional history exists DTaP/Tdap/Td Vaccine (2 - Td or Tdap) 07/31/2027 07/31/2017 Colon Cancer Screening-Colonoscopy 10/29/2032 10/29/2022 Colon Cancer Screening-CT Colonography Discontinued 10/29/2022 Colon Cancer Screening-DNA Stool Discontinued 10/30/19 Colon Cancer Screening-FIT Discontinued 10/29/2022 Colon Cancer Screening-Sigmoidoscopy Discontinued 10/29/2022 Procedures Procedure Name Priority Date/Time Associated Diagnosis Comments SCAN - RADIOLOGY/IMAGING 07/30/2024 SCREENING MAMMOGRAM BILATERAL W BONG Schedule Routine, Read Routine (OP Routine) 11/11/2023 8:54 AM CDT Screening mammogram, encounter for COLONOSCOPY 10/29/2022 7:59 AM CAFE HELPER from Last 3 Months or Most Recently Relevant to Health Maintenance Results * SCAN - RADIOLOGY/IMAGING (07/30/2024) Anatomical Region Laterality Modality Other us Provider Scanning Final Result * Screening Mammogram Bilateral W Bong (11/11/2023 8:54 AM CDT) Anatomical Region Laterality Modality Breast Bilateral Mammography 11/11/2023 9:13 AM CDT Impressions 11/11/2023 9:13 AM CDT There is no mammographic evidence of malignancy. A 1 year screening mammogram is recommended. BI-RADS: 1 - Negative. The patient has been or will be contacted. The patient will be entered into a reminder system with a target due date of 1 year for her next mammogram. Electronically signed by: Chelle Narayanan 11/11/2023 9:13 AM CDT EXAMINATION: SCREENING MAMMOGRAM BILATERAL W BONG ORDERING HEALTHCARE PROVIDER: SELF SCREENING MAMMOGRAM HISTORY: Routine screening mammography. COMPARISON: ??01/17/2022, 10/05/2018, 08/22/2015 TECHNIQUE: CC and MLO views of the bilateral breasts were obtained with digital technique using breast tomosynthesis with C view. Computer aided detection was utilized. FINDINGS: DENSITY: There are scattered fibroglandular elements in the bilateral breasts. BREASTS: There are no suspicious masses, suspicious calcifications, or other suspicious findings in either breast. There has been no suspicious interval change. us Self Screening Mammogram IMG MAMMO PROCEDURES Fi nal Result * COLONOSCOPY (10/29/2022 7:59 AM CAFE HELPER) Anatomical Region Laterality Modality Other Narrative Procedure Note Germania Sorto MD - 10/29/2022 7:59 AM CST Center Patient Name: Sarahy Gill Procedure Date: 10/29/2022 7:59 AM Date of : 1970 Admit Type: Outpatient Age: 52 Gender: Female Attending MD: Germania Sorto M.D. Room: [facility] ROOM 1 Note Status: Finalized Patient Profile: This is a 52 year old female. Patient was recently hospitalized with acute colitis. Colonoscopy for follow-up evaluation. No family history of coloncancer Procedure: Colonoscopy Indications: Last colonoscopy within the past 3 years, Follow-upof colitis Referring MD: Parmjit Dai M.D. Providers: Germania Sorto M.D. Impression: - One 5 mm polyp in the transverse colon, removedwith a jumbo cold forceps. Resected and retrieved. - Mild diverticulosis in the sigmoid colon. - Random colon biopsy performed. No inflammatory changes noted in the colon at this time. - Internal hemorrhoids. Recommendation: - Await pathology results. - Repeat colonoscopy in 4 years for screeningpurposes. - Continue present medications. Medicines: Monitored Anesthesia Care Complications: No immediate complications. Estimated Blood Loss: Estimated blood loss: none. Procedure: Pre-Anesthesia Assessment: - Prior to the procedure, a History and Physicalwas performed, and patient medications and allergieswere reviewed. The patient's tolerance of previous anesthesia was also reviewed. The risks andbenefits of the procedure and the sedation options and risks were discussed with the patient. All questions were answered, and informed consent was obtained. Prior Anticoagulants: The patient has taken noanticoagulant or antiplatelet agents. ASA Grade Assessment: II -A patient with mild systemic disease. After reviewing the risks and benefits, the patient was deemed in satisfactory condition to undergo the procedure. The benefits, risks and alternatives of theprocedure and sedation were discussed and informed consentwas obtained. All questions were answered. Please referto the signed informed consent document in the medical record. The bowel preparation used was Miralax and bisacodyl tablets via split dose instruction. The scope was passed under direct vision. The Pediatric Colonoscope PCF-H190L [id number] was introducedthrough the anus and advanced to the the cecum, identifiedby appendiceal orifice and ileocecal valve. Thequality of the bowel preparation was fair. Bowel prep was administered using a split dose. Findings: The perianal and digital rectal examinations were normal. The cecum appeared normal. A 5 mm polyp was found in the transverse colon. The polyp wassessile. The polyp was removed with a jumbo cold forceps. Resection andretrieval were complete. The colon (entire examined portion) appeared normal otherwiseoverall. No inflammatory changes noted. Few small scattered diverticuli notedin the left side of the colon. Random biopsies were taken with a cold forceps for histology. Internal hemorrhoids were found during retroflexion. The hemorrhoids were small. Electronically signed by Germania Sorto M.D. Germania Sorto M.D. 10/29/2022 9:46:43 AM Number of Addenda: 0 Note Initiated On: 10/29/2022 7:59 AM Procedure Code(s): --- Professional --- 07159, Colonoscopy, flexible; with biopsy, single or multiple Diagnosis Code(s): --- Professional --- K64.8, Other hemorrhoids D12.3, Benign neoplasm of transverse colon (hepatic flexure orsplenic flexure) K52.9, Noninfective gastroenteritis and colitis, unspecified CPT copyright 2020 [employer]. All rights reserved. The codes documented in this report are preliminary and upon toggler reviewmay be revised to meet current compliance requirements. Recognized by the [employer] for promoting quality in endoscopy Germania Sorto MD ENDOSCOPY PROCEDURES Final Result from Last 3 Months or Most Recently Relevant to Health Maintenance Insurance IDPA CIGFORMERLY [facility] IDPA MEDICARE SOLUTIONS [facility] [place] [id number] Advance Directives For more information, please contact: [phone] Documents on File Type Date Recorded Patient Toolman Expl anation ADVANCE DIRECTIVE 08/14/2021 9:12 AM Raz r of Director Of Residence [employer] * Full Code (Latest Code Status on File) Date Activated Date Inactivated Comments 02/08/2024 7:51 AM 02/08/2024 1:33 PM * Full Code Date Activated Date Inactivated Comments 09/09/2023 4:03 AM 09/09/2023 7:47 PM * Full Code Date Activated Date Inactivated Comments 08/21/2023 9:04 AM 08/21/2023 3:29 PM * Full Code Date Activated Date Inactivated Comments 08/21/2023 9:04 AM 08/21/2023 9:04 AM * Full Code Date Activated Date Inactivated Comments 10/29/2022 8:07 AM 10/29/2022 2:30 PM Care Teams Quality Improvement Manager Relationship Specialty Start Date End Date Parmjit Dai MD PCP - General 12/31/20 Mere Landa NP Nurse Practitioner 02/07/20 Tico Burton MD Surgeon General Surgery 08/09/21 Ivan Liang MD Consulting Physician General Surgery 09/09/23
--- OUTSIDE RECORDS SUMMARY | 2024-08-16 04:31 | XMS_ITS | Encounter Summary ---
Author Organization [facility] Address [address] [place] [address] Phone Care Team Providers Care Nurse Administrator Name Role Phone Mere Landa NP Unavailable [phone] Parmjit Dai MD Primary Care Provider [phone] Tico Burton MD Unavailable [phone] Ivan Liang MD Unavailable Encounter Details Date Type Department Care Team (Late st Contact Info) Description 08/08/2024 E-Visit [facility] Gastroenterology [address] [place] [address] Medical Office Building [address] [place] [address] Rose Negron MD [address] [place] [address] Follow up visit with my primary physician Social History Tobacco Use Types Packs/Day Years Used Date Smoking Tobacco: Former Cigarettes - 1999 Vaping Smokeless Tobacco: Never Comments:off and on Alcohol Use Standard Drinks/Week Comments No 0 (1 standard drink = 0.6 oz pur e alcohol) on occasion [facility] Utilities Answer Date Recorded In the past 12 months has [employer] electric, gas, oil, or water company threatened [...] often do you attend chur ch or pentecostal services? Never 09/09/2023 Do you belong to any clubs o r organizations such as restorationist groups, unions, fraternal or athletic groups, or [...] place to sleep or slept in a mcfp (including now)? No 09/09/2023 Personal Safety Answer Date Recorded Have you ever been in or are you currently in a harmful physical or emotional relationship or is someone making you feel afraid or unsafe? Denies 02/08/2024 Comments No Sex and Gender Information Value Date Recorded Sex Assigned at Not on file Legal Sex Female 10:06 AM BENDING FRAME OPERATOR Gender Identity Female 06/17/2024 7:02 AM CDT Sexual Orientation Not on file documented as of this encounter Progress Notes * Rose Negron MD - 08/11/2024 8:20 AM CST [employer] Message Note This patient gave consent for this Medical Advice Message and is aware that it may result in a billto their insurance, as well as the possibility of receiving a bill. They are an established patientbut are not seeking information exclusively about a problem treated during an in-person or video visit in the last seven days. I did not recommend an in-person or video visit within the next seven days of my reply. See the [employer] message reply for my assessment and plan. I spent a total of 12 minutes reviewing the patient???s prior medical records and current request for medical advice, prescribing medications or ordering tests (if applicable), replying to the patient and documenting this encounter. Rose Negron MD Reviewed outside records, including admission for colitis per patient request CT 07/20 Thickening of the descending colon, under distension vs colitis as treated above Previous colonoscopy 11/20 unremarkable Shows mainly - hiatal hernia, small- nothing to worry about - pancreas divisum- nothing to worry about or fix at present - some thickening of the descending colon, which could be just because your colon was in its naturally collapsed state during the scan or inflamed due to your infection In terms of the hernia- it is difficult to ascertain if it is new or not, based on the small size. .Regards, Rose Negron ING FRAME OPERATOR documented in this encounter Plan of Treatment Upcoming Encounters Date Type Department Care Team (Latest Contact Info) Description 09/07/2024 8:30 AM BENDING FRAME OPERATOR Hospital Encounter [facility] [address] [place] [phone] Forest Catherine MD [address] [address] 09/07/2024 8:30 AM BENDING FRAME OPERATOR - 09/07/2024 9:00 AM BENDING FRAME OPERATOR Surgery [facility] [address] [place] [phone] Forest Catherine MD [address] [address] EGD w/Endo Flip & YI placement Scheduled Procedures Name Priority Associated Diagnoses Date/Ti oh ESOPHAGOGASTRODUODENOSCOPY Hiatal hernia Gastroesophageal reflux disease, unspecified whether esophagitis present 09/07/2024 8:30 AM BENDING FRAME OPERATOR documented as of this encounter Visit Diagnoses Diagnosis Abnormal CT scan, gastrointestinal tract- Primary Hiatal hernia Diaphragmatic hernia without mention of obstruction or gangrene Colitis Other and unspecified noninfectious gastroenteritis and colitis Hiatal hernia Diaphragmatic hernia without mention of obstruction or gangrene Gastroesophageal reflux disease, unspecified whether esophagitis present documented in this encounter Care Teams Nurse Administrator Relationship Specialty Start Date End Date Parmjit Dai MD PCP - General 12/31/20 Mere Landa NP Nurse Practitioner 02/07/20 Tico Burton MD Surgeon General Surgery 08/09/21 Ivan Liang MD Consulting Physician General Surgery 09/09/23 documented as of this encounter
--- OUTSIDE RECORDS SUMMARY | 2024-08-16 04:31 | XMS_ITS | Encounter Summary ---
Author Organization [facility] Healthcare Address [address] [place] [address] Care Team Providers Care High Speed Operator Name Role Phone Mere Landa NP Unavailable [phone] Parmjit Dai MD Primary Care Provider [phone] Tico Burton MD Unavailable [phone] Ivan Liang MD Unavailable Encounter Details Date Type Department Care Team (Late st Contact Info) Description 06/23/[address] [phone] Spring Campos RN Social History Tobacco Use Types Packs/Day Years Used Date Smoking Tobacco: Former Cigarettes - 1999 Vaping Smokeless Tobacco: Never Comments:off and on Alcohol Use Standard Drinks/Week Comments No 0 (1 standard drink = 0.6 oz pur e alcohol) on occasion [facility] Utilities Answer Date Recorded In the past 12 months has [employer] electric, gas, oil, or water company threatened [...] often do you attend chur ch or anglican services? Never 09/09/2023 Do you belong to any clubs o r organizations such as amish groups, unions, fraternal or athletic groups, or [...] place to sleep or slept in a correction (including now)? No 09/09/2023 Personal Safety Answer Date Recorded Have you ever been in or are you currently in a harmful physical or emotional relationship or is someone making you feel afraid or unsafe? Denies 02/08/2024 Comments No Sex and Gender Information Value Date Recorded Sex Assigned at Not on file Legal Sex Female 10:06 AM CERTIFIED HYPERBARIC TECHNOLOGIST Gender Identity Female 06/17/2024 7:02 AM CDT Sexual Orientation Not on file documented as of this encounter Plan of Treatment Upcoming Encounters Date Type Department Care Team (Latest Contact Info) Description 09/07/2024 8:30 AM CERTIFIED HYPERBARIC TECHNOLOGIST Hospital Encounter [facility] [address] [place] [phone] Forest Catherine MD [address] [address] 09/07/2024 8:30 AM CERTIFIED HYPERBARIC TECHNOLOGIST - 09/07/2024 9:00 AM CERTIFIED HYPERBARIC TECHNOLOGIST Surgery [facility] [address] [place] [phone] Forest Catherine MD [address] [address] EGD w/Endo Flip & YI placement Scheduled Procedures Name Priority Associated Diagnoses Date/Ti vt ESOPHAGOGASTRODUODENOSCOPY Hiatal hernia Gastroesophageal reflux disease, unspecified whether esophagitis present 09/07/2024 8:30 AM CERTIFIED HYPERBARIC TECHNOLOGIST documented as of this encounter Visit Diagnoses Not on filedocumented in this encounter Care Teams High Speed Operator Relationship Specialty Start Date End Date Parmjit Dai MD PCP - General 12/31/20 Mere Landa NP Nurse Practitioner 02/07/20 Tico Burton MD Surgeon General Surgery 08/09/21 Ivan Liang MD Consulting Physician General Surgery 09/09/23 documented as of this encounter
--- OUTSIDE RECORDS SUMMARY | 2024-08-16 04:31 | XMS_ITS | Encounter Summary ---
Author Organization [facility] Address [address] [place] [address] Phone Care Team Providers Care Communications Billing Analyst Name Role Phone Mere Landa NP Unavailable [phone] Parmjit Dai MD Primary Care Provider [phone] Tico Burton MD Unavailable [phone] Ivan Liang MD Unavailable Encounter Details Date Type Department Care Team (Late st Contact Info) Description 06/23/2024 Telephone [facility] ([facility] - [facility] Minimally Invasive Surgery [address] [facility] 12th Floor, [place] [address] Maura Ray RMA Social History Tobacco Use Types Packs/Day Years Used Date Smoking Tobacco: Former Cigarettes 1 984 - 1999 Vaping Smokeless Tobacco: Never Comments:off and on Alcohol Use Standard Drinks/Week Comments No 0 (1 standard drink = 0.6 oz pur e alcohol) on occasion [facility] Utilities Answer Date Recorded In the past 12 months has th e electric, gas, oil, or water company threatened [...] often do you attend chur ch or congregational services? Never 09/09/2023 Do you belong to any clubs o r organizations such as evangelical groups, unions, fraternal or athletic groups, or [...] place to sleep or slept in a custodial (including now)? No 09/09/2023 Personal Safety Answer Date Recorded Have you ever been in or are you currently in a harmful physical or emotional relationship or is someone making you feel afraid or unsafe? Denies 02/08/2024 Comments No Sex and Gender Information Value Date Recorded Sex Assigned at Not on file Legal Sex Female 10:06 AM ACCOUNT EXECUTIVE AGRIBUSINESS Gender Identity Female 06/17/2024 7:02 AM CDT Sexual Orientation Not on file documented as of this encounter Miscellaneous Notes * Telephone Encounter - Maura Ray RMA - 06/23/2024 12:07 PM CDT Date: 06/23/2024 Reason for Call: EGD Testing Patient Provider: Say Davila M.D., Ph.D. Medical/Surgical Information: Outcome/Plan: Called pt and she advised that she is going to be having arthroscopic surgery on her knee 07/14/2024. She wants to make sure that this wouldn't cause an issue with her testing on 07/15/2024. Advised pt that I would need to discuss this with the EGD team and would get back into contact with her. Pt agrees with and understands this plan. documented in this encounter Plan of Treatment Upcoming Encounters Date Type Department Care Team (Latest Contact Info) Description 09/07/2024 8:30 AM ACCOUNT EXECUTIVE AGRIBUSINESS Hospital Encounter [facility] [address] [place] [phone] Forest Catherine MD [address] [place] [address] 09/07/2024 8:30 AM ACCOUNT EXECUTIVE AGRIBUSINESS - 09/07/2024 9:00 AM ACCOUNT EXECUTIVE AGRIBUSINESS Surgery [facility] [address] [place] [phone] Forest Catherine MD [address] [place] [address] EGD w/Endo Flip & YI placement Scheduled Procedures Name Priority Associated Diagnoses Date/Ti me ESOPHAGOGASTRODUODENOSCOPY Hiatal hernia Gastroesophageal reflux disease, unspecified whether esophagitis present 09/07/2024 8:30 AM ACCOUNT EXECUTIVE AGRIBUSINESS documented as of this encounter Visit Diagnoses Not on filedocumented in this encounter Care Teams Communications Billing Analyst Relationship Specialty Start Date End Date Parmjit Dai MD PCP - General 12/31/20 Mere Landa NP Nurse Practitioner 02/07/20 Tico Burton MD Surgeon General Surgery 08/09/21 Ivan Liang MD Consulting Physician General Surgery 09/09/23 documented as of this encounter
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
--- OUTSIDE RECORDS SUMMARY | 2024-08-16 04:31 | XMS_ITS | Encounter Summary ---
Author Organization [facility] Address [address] [place] [address] Phone Care Team Providers Care Lacrosse Coach Name Role Phone Mere Landa NP Unavailable [phone] Parmjit Dai MD Primary Care Provider [phone] Tico Burton MD Unavailable [phone] Ivan Liang MD Unavailable Reason for Referral * (Routine) - Pending Review Specialty Diagnoses / Procedures Referred By Contac t Referred To Contact Diagnoses Hiatal hernia Procedures Ambulatory esophageal pH impedance function test > 1 hour (24 hr) - Say Davila MD PhD [address] [place] [address] Phone: tel: fax: [facility] [address] [place] [address] Referral ID Status Reason Start Date Expiration Date V isits Requested Visits Authorized [id number] Pending Review 04/20/2024 05/20/2025 1 1 Reason for Visit * Consultation (Routine) - Closed Specialty Diagnoses / Procedures Referred By Contac t Referred To Contact Minimally Invasive Surgery Diagnoses Hiatal hernia Kapuria, Rose, MD [address] [place] [address] Phone: tel: fax: [facility] (All Locations) Referral ID Status Reason Start Date Expiration Date V isits Requested Visits Authorized [id number] Closed Specialty Services Required 02/19/2024 03/20/2025 1 1 Encounter Details Date Type Department Care Team (Late st Contact Info) Description 04/20/2024 3:00 PM CDT Office Visit [facility] Minimally Invasive Surgery [address] [facility] [address], [place] [address] Say Davila MD PhD [address] [place] [address] Esophageal dysphagia; Severe protein-calorie malnutrition (CMS/HCC) (HCC); Bipolar affective disorder, current episode depressed, current episode severity unspecified (HCC); Atrial fibrillation, unspecified type (HCC) Social History Tobacco Use Types Packs/Day Years Used Date Smoking Tobacco: Former Cigarettes - 1999 Vaping Smokeless Tobacco: Never Comments:off and on Alcohol Use Standard Drinks/Week Comments No 0 (1 standard drink = 0.6 oz pur e alcohol) on occasion [facility] Utilities Answer Date Recorded In the past 12 months has [employer], gas, oil, or water [employer] threatened to shut off services in your [...] often do you attend chur ch or denominational services? Never 09/09/2023 Do you belong to any clubs o r organizations such as baptism groups, unions, fraternal or athletic groups, or [...] place to sleep or slept in a skilled nursing (including now)? No 09/09/2023 Personal Safety Answer Date Recorded Have you ever been in or are you currently in a harmful physical or emotional relationship or is someone making you feel afraid or unsafe? Denies 02/08/2024 Comments No Sex and Gender Information Value Date Recorded Sex Assigned at Not on file Legal Sex Female 10:06 AM HISTORIAN RESEARCH ASSISTANT Gender Identity Female 06/17/2024 7:02 AM CDT [...] Mass Index 23.86 04/20/2024 2:59 PM CDT documented in this encounter Progress Notes * Say Davila MD PhD - 04/20/2024 3:00 PM CDT PT NAME: Sarahy Gill : 1970 DOS: 04/20/2024 #[id number] PRIMARY CARE PHYSICIAN: Parmjit Dai MD REFERRING PHYSICIAN: Rose Negron MD REASON FOR CLINIC VISIT: Consultation requested by Rose Negron MD for dysphagia and regurgitation. BRIEF HISTORY: Sarahy Gill is a 54 y.o. year-old female with a history of atrial fibrillationon Eliquis who presents with a chief complaint of regurgitation. Patient has a history of a hiatal hernia and reflux and per report underwent laparoscopic hiatal hernia repair with fundoplication (noop report available) in 2012 which she notes resolved her symptoms. However, about two years ago, she reports that she started having regurgitation as her primary symptom in which undigested food wascoming back up with every meal. This was associated with dysphagia to both solids and liquids, as well as heartburn and epigastric pain. The patient has tried altering her diet to avoid spicy foods, a lcohol, caffeine and chocolate; eating smaller meals, and avoiding eating close to bedtime. The patient has also tried elevating the head of the bed at night. The patient has tried anti-reflux medication including famotidine and pantoprazole, which has provided only limited relief. The patient denies hematemesis or melena; coughing, wheezing or asthma. The GERD-HRQL score is 27. Patient's workup has included EGD, CT chest abdomen and pelvis as well as high resolution manometry, results of whichare detailed below. PAST MEDICAL HISTORY: The patient has a past medical history of A-fib (CMS/HCC) ([facility]), Anemia, Anxiety, Arthritis, Bipolar affect, depressed ([facility]), Chronic nausea (09/24/2021), Colon polyp, Cyclic vomiting syndrome, Depression, GERD (gastroesophageal reflux disease), Headache, tension-type, Hypertension, Hypotension, IBS (irritable bowel syndrome), Migraine, Nausea and vomiting, unspecified vomiting type (12/18/2021),Stroke ([facility]), and Weight loss. She has no past medical history of Asthma, Awareness under anesthesia, Cancer ([facility]/HCC) ([facility]), CHF (congestive heart failure) ([facility]/HCC) ([facility]), COPD (chronic obstructive pulmonary disease) ([facility]), Coronary artery disease, Delayed emergence from general anesthesia, Diabetes mellitus ([facility]), Hard to intubate, History of transfusion, Malignant hyperthermia, Pseudocholinesterase deficiency, Sleep apnea,Spinal headache, or Thyroid disease. PAST SURGICAL HISTORY: Past Surgical History: Procedure Laterality Date ABDOMINAL SURGERY 2012 hiatel hernia repair APPENDECTOMY ARTHROSCOPIC SURGERY Left 1984,1994,2001 knee SECTION 1992 CHOLECYSTECTOMY COLONOSCOPY 1-2yrs ago COLONOSCOPY 10/29/2022 ENDOMETRIAL ABLATION HERNIA REPAIR POLYPECTOMY TUBAL LIGATION UPPER GASTROINTESTINAL ENDOSCOPY MEDICATIONS: Current Outpatient Medications: albuterol HFA (PROVENTIL HFA,VENTOLIN HFA,PROAIR HFA) 90 mcg/actuation inhaler amitriptyline (ELAVIL) 10 mg tablet apixaban (ELIQUIS) 5 mg tablet busPIRone (BUSPAR) 10 mg tablet cephalexin (KEFLEX) 500 mg capsule dicyclomine (BENTYL) 20 mg tablet docusate sodium (COLACE) 100 mg capsule famotidine (PEPCID) 20 mg tablet flecainide (TAMBOCOR) 100 mg tablet linaCLOtide (LINZESS) 72 mcg capsule meclizine (ANTIVERT) 12.5 mg tablet metoprolol XL (TOPROL-XL) 25 mg extended release tablet mirtazapine (REMERON) 15 mg tablet ondansetron (ZOFRAN) [address] (PROTONIX) 40 mg EC tablet SUMAtriptan (IMITREX) 6 mg/0.5 mL injection atorvastatin (LIPITOR) 40 mg tablet ALLERGIES: Allergies Allergen Reactions Metoclopramide Other (See comments) Had TIA after trying. Doesn't like the way it makes her body feel. Phenergan [Promethazine] Agitation Prochlorperazine Other (See comments) and Unknown made me feel weird, odd also agitation Zithromax [Azithromycin] Stomach upset Social History Tobacco Use Smoking status: Former Current packs/day: 0.00 Types: Vaping, Cigarettes Start date: 1983 Quit date: 1999 Years since quittin.6 Smokeless tobacco: Never Tobacco comments: off and on Substance and Sexual Activity Drug use: Yes Types: Marijuana Comment: occasionally Sexual activity: Defer control/protection: Post-menopausal Alcohol Use: Not At Risk (09/24/2023) AUDIT-C Frequency of Alcohol Consumption: Never Average Number of Drinks: Patient does not drink Frequency of Binge Drinking: Not on file FAMILY HISTORY: The patient's family history includes Esophageal cancer in her maternal grandmother; Heart disease in her maternal grandmother; Hypertension in her maternal grandmother; Migraines in her mother; Stroke in her maternal grandmother. REVIEW OF SYSTEMS: A comprehensive 15-point review of systems was completed by the patient and reviewed in clinic today as documented in the medical record. PHYSICAL EXAMINATION: Vitals: 04/20/24 1459 BP: 98/64 Pulse: 69 Resp: 16 Temp: 36.8 ??C (98.2 ??F) SpO2: 98% Weight: 63 kg (139 lb) Height: 162.6 cm (5' 4 ) Body mass index is 23.86 kg/m??. General: Alert and oriented, in no acute distress. Head: Atraumatic, normocephalic. Eyes: Pupils are equal, round and reactive to light and accommodation. Extraocular muscles are intact. Mouth: Moist mucus membranes. Neck: Supple with no lymphadenopathy. Chest: Clear to auscultation bilaterally. Cardiovascular: Regular rate and rhythm. Abdomen: Soft, nondistended, nontender. Extremities: Warm and dry. Neurovascular: Grossly intact. REVIEW OF STUDIES: All studies independently reviewed by myself High resolution manometry (02/08/24): hypertensive LES with elevated post swallow residual pressures. Intact esophageal body peristalsis EGD (02/08/24): tortuous esophagus. Erythematous mucosa in the stomach. Evidence of fundoplication. CT chest abdomen and pelvis (10/07/2023): No evidence of recurrent hiatal hernia Esophagram (08/04/2023): No evidence of recurrent hiatal hernia. ASSESSMENT AND PLAN: Sarahy Gill is a 54 y.o. year-old female with regurgitation, heartburn and epigastric pain of unknown origin. She has no evidence of a recurrent hiatal hernia. The differential diagnosis includes a loose fundoplication causing GERD and possible peptic stricture versus esop hagogastric junction outflow obstruction (EGJOO) due to a hypertonic LES. We will plan to investigate further with esophageal pH testing as well as EGD with FLIP. We will schedule these tests and contact the patient with the results and further recommendations. She expressed understanding and agreement with this plan. Sincerely, Say Davila MD, PhD, FACS pbx mechanic Minimally Invasive Foregut and General Surgery Director, Robotic Surgery, [facility] HealthCare Director, [facility] ([facility]) Director, [facility] Simulation Fellowship [facility] [place], [place] Office phone: [phone] I have seen and examined the patient along with the resident and agree with the note and plan as documented above. documented in this encounter Plan of Treatment Upcoming Encounters Date Type Department Care Team (Latest Contact Info) Description 09/07/2024 8:30 AM HISTORIAN RESEARCH ASSISTANT Hospital Encounter [facility] [address] [place] [id number] Forest Catherine MD [address] [facility] [address] [place] [address] 09/07/2024 8:30 AM HISTORIAN RESEARCH ASSISTANT - 09/07/2024 9:00 AM HISTORIAN RESEARCH ASSISTANT Surgery [facility] [address] [facility] [address] [place] [phone] Forest Catherine MD [address] [place] [address] EGD w/Endo Flip & YI placement Scheduled Orders Name Type Priority Associated Diagnoses Orde r Schedule EGD -[facility] GI Routine Esophageal dysphagia Expected: 04/21/2024 (Approximate), Expires: 04/20/2025 Ambulatory esophageal pH impedance function test > 1 hour (24 hr) - GI Routine Esophageal dysphagia 1 Occurrences starting 04/20/2024 until 04/20/2025 Scheduled Procedures Name Priority Associated Diagnoses Date/Ti me ESOPHAGOGASTRODUODENOSCOPY Hiatal hernia Gastroesophageal reflux disease, unspecified whether esophagitis present 09/07/2024 8:30 AM HISTORIAN RESEARCH ASSISTANT documented as of this encounter Visit Diagnoses Diagnosis Esophageal dysphagia Dysphagia, pharyngoesophageal phase Severe protein-calorie malnutrition (CMS/HCC) (HCC) Other severe protein-calorie malnutrition Bipolar affective disorder, current episode depressed, current episode severity unspecified (HCC) Atrial fibrillation, unspecified type (HCC) Hiatal hernia Diaphragmatic hernia without mention of obstruction or gangrene Gastroesophageal reflux disease, unspecified whether esophagitis present documented in this encounter Orders Outpatient Referral Count Last Ordered Date Fir st Ordered Date AMB REFERRAL TO MINIMALLY INVASIVE SURGERY 1 04/20/2024 documented in this encounter Care Teams Lacrosse Coach Relationship Specialty Start Date End Date Parmjit Dai MD PCP - General 12/31/20 Mere Landa NP Nurse Practitioner 02/07/20 Tico Burton MD Surgeon General Surgery 08/09/21 Ivan Liang MD Consulting Physician General Surgery 09/09/23 documented as of this encounter
--- OUTSIDE RECORDS SUMMARY | 2024-08-16 04:31 | XMS_ITS | Encounter Summary ---
Author Organization [facility] Address [address] [place] [address] Phone Care Team Providers Care Chip Mixing Machine Operator Name Role Phone Mere Landa NP Unavailable [phone] Parmjit Dai MD Primary Care Provider [phone] Tico Burton MD Unavailable [phone] Ivan Liang MD Unavailable Encounter Details Date Type Department Care Team (Late st Contact Info) Description 04/05/2024 Orders Only [facility] ([facility] Minimally Invasive Surgery [address] [facility] [address] Floor, [place] [address] Maura Ray RMTheresa Social History Tobacco Use Types Packs/Day Years Used Date Smoking Tobacco: Former Cigarettes 1 984 - 1999 Vaping Smokeless Tobacco: Never Comments:off and on Alcohol Use Standard Drinks/Week Comments No 0 (1 standard drink = 0.6 oz pur e alcohol) on occasion [facility] Utilities Answer Date Recorded In [...] often do you attend chur ch or christianity services? Never 09/09/2023 Do you belong to any clubs o r organizations such as faith groups, unions, fraternal or athletic groups, or [...] on file Legal Sex Female 10:06 AM DINING CAR STEWARD Gender Identity Female 06/17/2024 7:02 AM CDT Sexual Orientation Not on file documented as of this encounter Plan of Treatment Upcoming Encounters Date Type Department Care Team (Latest Contact Info) Description 09/07/2024 8:30 AM DINING CAR STEWARD Hospital Encounter [facility] [address] [place] [phone] Forest Catherine MD [address] [address] 09/07/2024 8:30 AM DINING CAR STEWARD - 09/07/2024 9:00 AM DINING CAR STEWARD Surgery [facility] [address] [place] [phone] Forest Catherine MD [address] [address] EGD w/Endo Flip & YI placement Scheduled Procedures Name Priority Associated Diagnoses Date/Ti me ESOPHAGOGASTRODUODENOSCOPY Hiatal hernia Gastroesophageal reflux disease, unspecified whether esophagitis present 09/07/2024 8:30 AM DINING CAR STEWARD documented as of this encounter Visit Diagnoses Not on filedocumented in this encounter Historical Medications * This list may reflect changes made after this encounter. Medication Sig Dispense Quantity Refills Last Filled Start D ate End Date SUMAtriptan (IMITREX) 6 mg/0.5 mL injection 01/04/2024 added in this encounter Care Teams Chip Mixing Machine Operator Relationship Specialty Start Date End Date Parmjit Dai MD PCP - General 12/31/20 Mere Landa NP Nurse Practitioner 02/07/20 Tico Burton MD Surgeon General Surgery 08/09/21 Ivan Liang MD Consulting Physician General Surgery 09/09/23 documented as of this encounter
--- OUTSIDE RECORDS SUMMARY | 2024-08-16 04:31 | XMS_ITS | Encounter Summary ---
Author Organization [facility] Healthcare Address [address] [place] [address] Care Team Providers Care Linesperson Name Role Phone Mere Landa NP Unavailable [phone] Parmjit Dai MD Primary Care Provider [phone] Tico Burton MD Unavailable [phone] Ivan Liang MD Unavailable Encounter Details Date Type Department Care Team (Late st Contact Info) Description 04/27/2024 Telephone [facility] Center [address] [place] [phone] Julia Wyman RN Social History Tobacco Use Types Packs/Day Years Used Date Smoking Tobacco: Former Cigarettes - 1999 Vaping Smokeless Tobacco: Never Comments:off and on Alcohol Use Standard Drinks/Week Comments No 0 (1 standard drink = 0.6 oz pur e alcohol) on occasion [facility] Utilities Answer Date Recorded In the past 12 months has [employer], gas, oil, or water company threatened [...] often do you attend chur ch or protestant services? Never 09/09/2023 Do you belong to any clubs o r organizations such as presybeterian groups, unions, fraternal or athletic groups, or [...] place to sleep or slept in a detention (including now)? No 09/09/2023 Personal Safety Answer Date Recorded Have you ever been in or are you currently in a harmful physical or emotional relationship or is someone making you feel afraid or unsafe? Denies 02/08/2024 Comments No Sex and Gender Information Value Date Recorded Sex Assigned at Not on file Legal Sex Female 10:06 AM PRESS OPERATOR [employer] Gender Identity Female 06/17/2024 7:02 AM CDT Sexual Orientation Not on file documented as of this encounter Plan of Treatment Upcoming Encounters Date Type Department Care Team (Latest Contact Info) Description 09/07/2024 8:30 AM PRESS OPERATOR [employer] Hospital Encounter [facility] [address] [place] [phone] Forest Catherine MD [address] [address] 09/07/2024 8:30 AM PRESS OPERATOR [employer] - 09/07/2024 9:00 AM PRESS OPERATOR [employer] Surgery [facility] [address] [place] [phone] Forest Catherine MD [address] [address] EGD w/Endo Flip & YI placement Scheduled Procedures Name Priority Associated Diagnoses Date/Ti mo ESOPHAGOGASTRODUODENOSCOPY Hiatal hernia Gastroesophageal reflux disease, unspecified whether esophagitis present 09/07/2024 8:30 AM PRESS OPERATOR [employer] documented as of this encounter Visit Diagnoses Not on filedocumented in this encounter Care Teams Linesperson Relationship Specialty Start Date End Date Parmjit Dai MD PCP - General 12/31/20 Mere Landa NP Nurse Practitioner 02/07/20 Tico Burton MD Surgeon General Surgery 08/09/21 Ivan Liang MD Consulting Physician General Surgery 09/09/23 documented as of this encounter
--- OUTSIDE RECORDS SUMMARY | 2024-08-16 04:31 | XMS_ITS | Encounter Summary ---
Author Organization [facility] Address [address] [place] [address] Phone Care Team Providers Care Law Firm Partner Name Role Phone Mere Landa NP Unavailable [phone] Parmjit Dai MD Primary Care Provider [phone] Tico Burton MD Unavailable [phone] Ivan Liang MD Unavailable Encounter Details Date Type Department Care Team (Late st Contact Info) Description 07/05/2024 Telephone [facility] Gastroenterology [address] [facility] 12th [place] [address] [place] [address] Katharine Carty Social History Tobacco Use Types Packs/Day Years Used Date Smoking Tobacco: Former Cigarettes 1 4 - 1999 Vaping Smokeless Tobacco: Never Comments:off and on Alcohol Use Standard Drinks/Week Comments No 0 (1 standard drink = 0.6 oz pur e alcohol) on occasion [facility] Utilities Answer Date Recorded In the past 12 months has [employer], gas, oil, or water company threatened to [...] often do you attend chur ch or buddhism services? Never 09/09/2023 Do you belong to any clubs o r organizations such as buddhist groups, unions, fraternal or athletic groups, or [...] on file Legal Sex Female 10:06 AM STRUCTURAL ENGINEER Gender Identity Female 06/17/2024 7:02 AM CDT Sexual Orientation Not on file documented as of this encounter Miscellaneous Notes * Telephone Encounter - Evelyn Kerns LPN - 07/05/2024 2:28 PM STRUCTURAL ENGINEER Buspirone refilled to pharmacy. CTURAL ENGINEER * Telephone Encounter - Katharine Carty - 07/05/2024 9:06 AM CST Images from the original note were not included. CTURAL ENGINEER * Telephone Encounter - Katharine Carty - 07/05/2024 9:03 AM CST Images from the original note were not included. CTURAL ENGINEER documented in this encounter Plan of Treatment Upcoming Encounters Date Type Department Care Team (Latest Contact Info) Description 09/07/2024 8:30 AM STRUCTURAL ENGINEER Hospital Encounter [facility] [address] [place] [phone] Forest Catherine MD [address] [place] [address] 09/07/2024 8:30 AM STRUCTURAL ENGINEER - 09/07/2024 9:00 AM STRUCTURAL ENGINEER Surgery [facility] [address] [place] [phone] Forest Catherine MD [address] [place] [address] EGD w/Endo Flip & YI placement Scheduled Procedures Name Priority Associated Diagnoses Date/Ti tn ESOPHAGOGASTRODUODENOSCOPY Hiatal hernia Gastroesophageal reflux disease, unspecified whether esophagitis present 09/07/2024 8:30 AM STRUCTURAL ENGINEER documented as of this encounter Visit Diagnoses Not on filedocumented in this encounter Care Teams Law Firm Partner Relationship Specialty Start Date End Date Parmjit Dai MD PCP - General 12/31/20 Mere Landa NP Nurse Practitioner 02/07/20 Tico Burton MD Surgeon General Surgery 08/09/21 Ivan Liang MD Consulting Physician General Surgery 09/09/23 documented as of this encounter
--- OUTSIDE RECORDS SUMMARY | 2024-08-16 04:31 | XMS_ITS | Encounter Summary ---
Author Organization [facility] Healthcare Address [address] [place] [address] Care Team Providers Care Commercial Lender Name Role Phone Mere Landa NP Unavailable [phone] Parmjit Dai MD Primary Care Provider [phone] Tico Burton MD Unavailable [phone] Ivan Liang MD Unavailable Reason for Visit * Auth/Cert (Routine) Specialty Diagnoses / Procedures Referred By Loreta t Referred To Contact Diagnoses Gastroesophageal reflux disease, unspecified whether esophagitis present Other chronic gastritis without hemorrhage Esophageal dysmotility Gastroesophageal reflux disease, unspecified whether esophagitis present [K21.9] Other chronic gastritis without hemorrhage [K29.50] Esophageal dysmotility [K22.4] Procedures IN ESOPHAGOGASTRODUODENOSCOPY TRANSORAL DIAGNOSTIC IN EGD REMOVAL TUMOR POLYP/OTHER LESION SNARE TECH ESOPHAGOGASTRODUODENOSCOPY with manometry catheter placement Referral ID Status Reason Start Date Expiration Date Visits Re quested Visits Authorized [id number] 1 1 Encounter Details Date Type Department Care Team (Late st Contact Info) Description 02/08/2024 8:05 AM CDT Anesthesia Event [facility] [place] [address] [place] [address] Raj Benavides MD [address] [facility] [address] [place] [address] Anesthesia Record Procedure Summary Procedure Name Responsible Anesthesiologist Anesthesia Start Time Anesthesia Stop Time ENDO ADD ON ESOPHAGOGASTRODUODENOSCOPY BIOPSY Raj Benavides MD 02/08/24 0805 02/08/24 0842 Events Date Time Event Comment 02/08/2024 0756 0805 In Room 0805 An Start 0805 An Start Data 0808 An Data Art 0811 Start Supplemental O2 0811 Bite Block Placed 0811 An Induction The patient was reevaluated immediately before moderate or deep sedation use and before anesthesia induction. 0814 Proc Start 0814 Anesthesia Ready 0830 Proc Fin 0834 an stop data 0835 Out of Room 0842 Handoff to RN I completed my handoff to the receiving nurse during which we: 1. Patient identified 2. Responsible provider identified 3. Pertinent medical history reviewed 4. Procedure type and surgical course discussed 5. Intraoperative anesthetic management and any significant issues discussed 6. Expectations and concerns for postop period discussed 7. Questions solicited from receiving nurse 8. Patient disposition at the time of handoff: PACU 0842 An Stop Meds Name Total lidocaine (cardiac) syringe 2 % 60 mg propofol 130 mg propofol 200.07 mg sodium chloride 0.9% infusion 0 mL * Agents Name O2% N2O O2 * Blood No blood administrations on file. Lines, Drains, and Airways Type Details Placement Removal RETIRED Surgical Site 09/09/23; 0959; Abdomen; 08/02/24 (Retired LDA, Removed/Completed by Active Scaler with LDA Utility); 1213 (Retired LDA, Removed/Completed by Active Scaler with LDA Utility) 09/09/23 0959 by Debbie Rich RN 08/02/24 1213 by Discharge Provider, Automatic Peripheral IV Placement Date: 02/08/24; Placement Time: 803; Catheter Size: 20 G; Orientation: Posterior, Right; Location: Hand; Site Prep: Chlorhexidine; Technique: Anatomical landmarks; Inserted by: Marie; Insertion Attempts: 1; Patient Tolerance: Tolerated well; Removal Date: 02/08/24; Removal Time: 90202/08/24 0804 by Tony Vazquez RN 02/08/24 09 by Shanel Mario RN documented in this encounter Social History Tobacco Use Types Packs/Day Years Used Date Smoking Tobacco: Former Cigarettes 1 984 - 1999 Vaping Smokeless Tobacco: Never Comments:off and on Alcohol Use Standard Drinks/Week Comments No 0 (1 standard drink = 0.6 oz pur e alcohol) on occasion [facility] Utilities Answer Date Recorded In [...] often do you attend chur ch or faith services? Never 09/09/2023 Do you belong to [...] place to sleep or slept in a longterm (including now)? No 09/09/2023 Personal Safety Answer Date Recorded Have you ever been in or are you currently in a harmful physical or emotional relationship or is someone making you feel afraid or unsafe? Denies 02/08/2024 Comments No Sex and Gender Information Value Date Recorded Sex Assigned at Not on file Legal Sex Female 10:06 AM DISPATCHER REFINERY Gender Identity Female 06/17/2024 7:02 AM CDT Sexual Orientation Not on file documented as of this encounter OR Notes * Anesthesia Postprocedure Evaluation - Raj Benavides MD - 02/08/2024 9:18 AM CDT Patient: Sarahy Gill Procedure Summary Date: 02/08/24 Room / Location: [facility] ENDOSCOPY ROOM 8 / [facility] Anesthesia Start: 804 Anesthesia Stop: 841 Procedures: ESOPHAGOGASTRODUODENOSCOPY BIOPSY ENDO ADD ON ESOPHAGOGASTRODUODENOSCOPY PLACE CATHETER/TUBE Diagnosis: Gastroesophageal reflux disease, unspecified whether esophagitis present Other chronic gastritis without hemorrhage Esophageal dysmotility (Gastroesophageal reflux disease, unspecified whether esophagitis present [K21.9]) (Other chronic gastritis without hemorrhage [K29.50]) (Esophageal dysmotility [K22.4]) Providers: Alecia Newman MD Responsible Provider: Raj Benavides MD Anesthesia Type: MAC ASA Status: 3 Anesthesia Type: MAC Last vitals BP 124/66 (BP Location: Left arm, Patient Position: Sitting) Pulse 55 Temp 36.5 ??C (97.7 ??F) (Temporal) Resp 12 SpO2 99% Anesthesia Post Evaluation Patient location during evaluation: PACU Patient participation: complete - patient participated Level of consciousness: fully awake Pain management: satisfactory to patient Airway patency: adequate Cardiovascular status: acceptable and hemodynamically stable Respiratory status: acceptable Hydration status: acceptable Pt is: normothermic Nausea/Vomiting status: none No notable events documented. * Anesthesia Preprocedure Evaluation - Raj Benavides MD - 02/08/2024 7:12 AM CDT Images from the original note were not included. Anesthesia Evaluation Sarahy Gill is a 53 y.o. female ESOPHAGOGASTRODUODENOSCOPY with manometry catheter placement Pre-Op Diagnosis Codes: * Gastroesophageal reflux disease, unspecified whether esophagitis present [K21.9] * Other chronic gastritis without hemorrhage [K29.50] * Esophageal dysmotility [K22.4] HISTORY Past Medical History Neurological + TIA Cardiovascular + Hypertension + Atrial fibrillation/flutter - Respiratory Respiratory system: negative Hepatic / Heme Hepatic/Heme system: negative Gastrointestinal + GERD Renal / Renal/ system: negative Musculoskeletal/Pain + Headaches - migraine headaches. Endocrine / Other Endocrine/Other system: negative Patient Active Problem List Diagnosis Date Noted Gastroesophageal reflux disease 11/24/2023 Esophageal dysmotility 11/24/2023 Paresthesia of both lower extremities 10/28/2023 Slow transit constipation 09/24/2023 Small intestinal bacterial overgrowth (SIBO) 09/24/2023 Tubular adenoma of colon 09/24/2023 Chronic abdominal pain 09/09/2023 Iron deficiency anemia 09/09/2023 Severe protein-calorie malnutrition (CMS/HCC) (HCC) 09/09/2023 Appendix disease 09/03/2023 Abdominal pain 07/21/2023 Dyspepsia 07/21/2023 Colitis 09/10/2022 Cyclical vomiting 09/05/2022 Gastritis 09/05/2022 Gastroesophageal reflux disease with esophagitis without hemorrhage 06/03/2022 Chronic superficial gastritis without bleeding 01/17/2022 Chronic anemia 01/17/2022 Nausea and vomiting 12/18/2021 Marijuana use 12/18/2021 Nausea and vomiting, unspecified vomiting type 12/18/2021 History of colonoscopy with polypectomy 10/07/2021 Hepatic steatosis 10/04/2021 Periumbilical abdominal pain 09/24/2021 Irritable bowel syndrome with both constipation and diarrhea 09/24/2021 Chronic nausea 09/24/2021 History of repair of hiatal hernia 09/24/2021 Gastroesophageal reflux disease without esophagitis 09/24/2021 Dysuria 08/13/2021 Hypokalemia TIA (transient ischemic attack) 08/11/2021 Cyclic vomiting syndrome 08/09/2021 Bipolar affect, depressed (HCC) 08/09/2021 Intussusception intestine (CMS/HCC) (HCC) 08/09/2021 Hypertension 08/08/2021 Abdominal pain, generalized 08/08/2021 Atrial fibrillation (CMS/HCC) ([facility]) 05/15/2020 Essential tremor 10/12/2018 Jerky body movements 10/12/2018 Irritable bowel syndrome with both constipation and diarrhea 02/23/2018 Orthostatic dizziness 09/16/2016 Palpitations 07/29/2016 Migraine headache 07/29/2016 Past Medical History: Diagnosis Date A-fib (CMS/HCC) ([facility]) Anemia Anxiety Arthritis Bipolar affect, depressed (HCC) Chronic nausea 09/24/2021 Colon polyp Cyclic vomiting syndrome Depression GERD (gastroesophageal reflux disease) Headache, tension-type Hypertension Hypotension IBS (irritable bowel syndrome) Migraine Nausea and vomiting, unspecified vomiting type 12/18/2021 Stroke ([facility]) TIA Weight loss Past Surgical History: Procedure Laterality Date ABDOMINAL SURGERY 2013 hiatel hernia repair APPENDECTOMY ARTHROSCOPIC SURGERY Left 1984,1994,2001 knee SECTION 1992 CHOLECYSTECTOMY COLONOSCOPY 1-2yrs ago COLONOSCOPY 10/29/2022 ENDOMETRIAL ABLATION HERNIA REPAIR POLYPECTOMY TUBAL LIGATION OB History 8 Para 6 Term 6 AB Living SAB IAB Ectopic Multiple Live Births Allergies Allergen Reactions Metoclopramide Other (See comments) Had TIA after trying. Doesn't like the way it makes her body feel. Phenergan [Promethazine] Agitation Prochlorperazine Other (See comments) and Unknown made me feel weird, odd also agitation Zithromax [Azithromycin] Stomach upset Taking? Last Dose Start Date End Date Provider albuterol HFA (PROVENTIL HFA,VENTOLIN HFA,PROAIR HFA) 90 mcg/actuation inhaler -- 04/03/23 -- Rosanne Perez MD apixaban (ELIQUIS) 5 mg tablet -- -- -- Rosanne Perez MD atorvastatin (LIPITOR) 40 mg tablet () -- 08/13/21 09/24/23 Letha Rose MD Take 1 tablet (40 mg total) by mouth daily busPIRone (BUSPAR) 10 mg tablet () -- 11/26/23 01/25/24 Rose Negron MD Take 1 tablet (10 mg total) by mouth 3 (three) times a day cephalexin (KEFLEX) 500 mg capsule -- 11/20/23 -- Rosanne Perez MD dicyclomine (BENTYL) 20 mg tablet -- 04/17/23 -- Richard Bowman NP Take 1 tablet (20 mg total) by mouth 4 (four) times a day as needed (abdominal pain/cramping) docusate sodium (COLACE) 100 mg capsule -- -- -- Rosanne Perez MD famotidine (PEPCID) 20 mg tablet -- 04/17/23 -- Richard Bowman NP Take 1 tablet (20 mg total) by mouth daily as needed for indigestion or heartburn flecainide (TAMBOCOR) 100 mg tablet -- 07/08/22 -- Rosanne Perez MD meclizine (ANTIVERT) 12.5 mg tablet -- 10/16/23 -- Rosanne Perez MD metoprolol XL (TOPROL-XL) 25 mg extended release tablet -- -- -- Rosanne Perez MD mirtazapine (REMERON) 15 mg tablet -- 11/18/23 -- Rosanne Perez MD ondansetron (ZOFRAN) 8 mg tablet -- 10/08/23 -- Richard Bowman NP Take 0.5-1 tablets (4-8 mg total) by mouth every 6 (six) hours as needed for nausea or vomiting pantoprazole DR (PROTONIX) 40 mg EC tablet -- 12/16/23 02/14/24 Rose Negron MD Take 1 tablet (40 mg total) by mouth 2 (two) times a day before breakfast and dinner prucalopride (MOTEGRITY) 2 mg tablet () -- 11/13/23 01/12/24 Rose Negron MD Take 1 tablet (2 mg total) by mouth daily No current facility-administered medications for this encounter. Social History Tobacco Use Smoking Status Former Current packs/day: 0.00 Types: Vaping, Cigarettes Start date: 1983 Quit date: 1999 Years since quittin.4 Smokeless Tobacco Never Tobacco Comments off and on Alcohol Use: Not At Risk (09/24/2023) AUDIT-C Frequency of Alcohol Consumption: Never Average Number of Drinks: Patient does not drink Frequency of Binge Drinking: Not on file Substance and Sexual Activity Drug Use Yes Types: Marijuana Comment: occasionally last used 09-02-23 Family History Problem Relation Age of Onset Esophageal cancer Maternal Grandmother Heart disease Maternal Grandmother Stroke Maternal Grandmother Hypertension Maternal Grandmother Migraines Mother There were no vitals filed for this visit. PT: No results found for requested labs within last 30 days. INR: No results found for requested labs within last 30 days. APTT: No results found for requested labs within last 30 days. Hgb A1C: No results found for requested labs within last 30 days. CBC RBC: No results found for requested labs within last 30 days. RDW: No results found for requested labs within last 30 days. MCHC: No results found for requested labs within last 30 days. MCH: No results found for requested labs within last 30 days. MCV: No results found for requested labs within last 30 days. Hct: No results found for requested labs within last 30 days. Hgb: No results found for requested labs within last 30 days. WBC: No results found for requested labs within last 30 days. MPV: No results found for requested labs within last 30 days. Platelets: No results found for requested labs within last 30 days. RDW CV: No results found for requested labs within last 30 days. RDW Sd: No results found for requested labs within last 30 days. BMP Glucose: No results found for requested labs within last 30 days. Calcium: No results found for requested labs within last 30 days. Sodium: No results found for requested labs within last 30 days. Potassium: No results found for requested labs within last 30 days. CO2: No results found for requested labs within last 30 days. Chloride: No results found for requested labs within last 30 days. BUN: No results found for requested labs within last 30 days. Creatinine: No results found for requested labs within last 30 days. DOS Physical Exam Attestation: This PAT evaluation Airway Exam: Mallampati: II Cervical ROM: FROM Cardiovascular Exam: Rate: regular Rhythm: regular Pulmonary Exam: LCTA, bilat EENT Exam: trachea midline Dental Exam: Upper dentures and lower dentures Current state: Patient's current state is cooperative and interactive. Anesthesia Plan ASA 3 My patient is approved for the Anesthesia Controlled Medication protocol when under care of a THERMOSTAT REPAIRER Planned anesthesia: MAC Induction: Induction: intravenous. Postoperative Plan: No plan for postoperative opioid use. No postoperative mechanical ventilation intended. Patient's planned disposition post procedure is Outpatient. Informed Consent: Anesthesia plan and risks discussed with patient. Plan and Consent Comments: PLAN MAC. Explained risks. Agreeable to proceed. Consent and Attending signature: I and/or my designee have discussed the anesthesia plan, benefits, possible alternatives, parental presence at time of induction (if indicated), and clinically relevant risks that may include dental injury, unintentional awareness, and/or other complications. The patient and/or parent/legal guardian understand, and agree to proceed. All questions answered. documented in this encounter Plan of Treatment Upcoming Encounters Date Type Department Care Team (Latest Contact Info) Description 09/07/2024 8:30 AM DISPATCHER REFINERY Hospital Encounter [facility] [address] [place] [address] Forest Catherine MD [address] [place] [address] 09/07/2024 8:30 AM DISPATCHER REFINERY - 09/07/2024 9:00 AM DISPATCHER REFINERY Surgery [facility] [address] [place] [address] Forest Catherine MD [address] [place] [address] EGD w/Endo Flip & YI placement Scheduled Procedures Name Priority Associated Diagnoses Date/Ti md ESOPHAGOGASTRODUODENOSCOPY Hiatal hernia Gastroesophageal reflux disease, unspecified whether esophagitis present 09/07/2024 8:30 AM DISPATCHER REFINERY documented as of this encounter Visit Diagnoses Not on filedocumented in this encounter Administered Medications Inactive Administered Medications - up to 3 most recent administrations Medication Order MAR Action Action Date Dose Rate Site lidocaine (cardiac) (XYLOCAINE) preservative free injection intravenous, As needed, Starting on Thu02/08/24 at 0811, Anesthesia Intra-op, Indications: Ventricular ArrhythmiasIndications:Ventricular Arrhythmias Given 02/08/2024 8:11 AM CDT 60 mg propofoL (DIPRIVAN) 10 mg/mL IV intravenous, As needed, Starting on Thu02/08/24 at 0811, Anesthesia Intra-op Given 02/08/2024 8:14 AM CDT 30 mg Given 02/08/2024 8:13 AM CDT 50 mg Given 02/08/2024 8:11 AM CDT 50 mg propofoL (DIPRIVAN) 10 mg/mL IV intravenous, Continuous PRN, Starting on Thu02/08/24 at 0811, Anesthesia Intra-op New Bag 02/08/2024 8:11 AM CDT 180 mcg/kg/min 63.18 mL/hr sodium chloride 0.9% infusion 30 mL/hr, intravenous, Continuous, Starting on Thu02/08/24 at 0830 Rate/Dose Verify 02/08/2024 8:05 AM CDT New Bag 02/08/2024 8:05 AM CDT 30 mL/hr 30 mL/hr documented in this encounter Care Teams Commercial Lender Relationship Specialty Start Date End Date Parmjit Dai MD PCP - General 12/31/20 Mere Landa NP Nurse Practitioner 02/07/20 Tico Burton MD Surgeon General Surgery 08/09/21 Ivan Liang MD Consulting Physician General Surgery 09/09/23 documented as of this encounter
--- OUTSIDE RECORDS SUMMARY | 2024-08-16 04:31 | XMS_ITS | Encounter Summary ---
Author Organization [facility] Address [address] [place] [address] Phone Care Team Providers Care Supervisor Refractory Products Name Role Phone Mere Landa NP Unavailable [phone] Parmjit Dai MD Primary Care Provider [phone] Tico Burton MD Unavailable [phone] Ivan Liang MD Unavailable Reason for Referral * Consultation (Routine) - Closed Specialty Diagnoses / Procedures Referred By Contac t Referred To Contact Minimally Invasive Surgery Diagnoses Hiatal hernia Rose Negron MD [address] [place] [address] Phone: tel: fax: [facility] (All Locations) Referral ID Status Reason Start Date Expiration Date V isits Requested Visits Authorized [id number] Closed Specialty Services Required 02/19/2024 03/20/2025 1 1 Question Answer Please select the performing region: [facility] (All Locations) [167] # of visits: 1 Comments Dysfunctional wrap/recurrent paraesophageal hernia * Consultation (Routine) - Authorized Specialty Diagnoses / Procedures Referred By Contac t Referred To Contact Physical Therapy Diagnoses Dyssynergic defecation Rose Negron MD [address] [place] [address] Phone: tel: fax: [facility] (All Locations) Referral ID Status Reason Start Date Expiration Date Visits Requested Visits Authorized [id number] Authorized Evaluate and Treat 02/19/2024 02/18/2025 24 24 Question Answer PTRFR PT Evaluate and Treat Therapy options discussed with patient? Yes Location provided for therapy services is: Patient requested/Patient preferred Please select the performing region: [facility] (All Locations) [167] # of visits: 24 Comments Pelvic floor physical therapy Encounter Details Date Type Department Care Team (Late st Contact Info) Description 02/19/2024 10:45 AM CDT Office Visit [facility] Gastroenterology [address] 12th [place] [address] [place] [address] Rose Negron MD [address] [place] [address] Dyssynergic defecation (Primary Dx); Hiatal hernia; Constipation due to outlet dysfunction; Esophageal dysphagia; Regurgitation of food Social History Tobacco Use Types Packs/Day Years Used Date Smoking Tobacco: Former Cigarettes 1 984 - 1999 Vaping Smokeless Tobacco: Never Tobacco Cessation:Counseling Given: Not Answered Comments:off and on Alcohol Use Standard Drinks/Week Comments No 0 (1 standard drink = 0.6 oz pur e alcohol) on occasion [employer] Utilities Answer Date Recorded In the past 12 months has [employer], oil, or water [employer] threatened to shut off services in your [...] week 09/09/2023 How often do you attend [facility] or [facility] services? Never 09/09/2023 Do you belong to any clubs o r organizations such as sikhism groups, unions, fraternal or athletic groups, or [...] place to sleep or slept in a nursing home (including now)? No 09/09/2023 Personal Safety Answer Date Recorded Have you ever been in or are you currently in a harmful physical or emotional relationship or is someone making you feel afraid or unsafe? Denies 02/08/2024 Comments No Sex and Gender Information Value Date Recorded Sex Assigned at Not on file Legal Sex Female 10:06 AM NEON TECHNICIAN Gender Identity Female 06/17/2024 7:02 AM CDT Sexual Orientation Not on file documented as of this encounter Last Filed Vital Signs Vital Sign Reading Time Taken Comments Blood Pressure 113/69 02/19/2024 10:43 AM CDT Pulse 54 02/19/2024 10:43 AM CDT Temperature 36.9 ??C (98.5 ??F) 02/19/2024 10:43 AM C DT Respiratory Rate - - Oxygen Saturation 99% 02/19/2024 10:43 AM CDT Inhaled Oxygen Concentration - - Weight 58.5 kg (129 lb) 02/19/2024 10:43 AM CDT Height 162.6 cm (5' 4 ) 02/19/2024 10:43 AM CDT Body Mass Index 22.14 02/19/2024 10:43 AM CDT documented in this encounter Ordered Prescriptions Prescription Sig Dispense Quantity Refills Last Filled Start Date End Date linaCLOtide (LINZESS) 72 mcg capsuleIndications :Constipation Predominant Irritable Bowel Syndrome Take 1 capsule (72 mcg total) by mouth daily 30 capsule 2 02/19/2024 busPIRone (BUSPAR) 10 mg tabletIndications: Generalized Anxiety Disorder Take 1 tablet (10 mg total) by mouth 2 (two) times a day 180 tablet 1 02/19/2024 documented in this encounter Progress Notes * Rose Negron MD - 02/19/2024 12:00 AM CDT PATIENT NAME: LUKASZ GILL : 1970 LIGIA: 02/19/2024 REASON FOR VISIT: Dysphagia, regurgitation as well as constipation. HISTORY OF PRESENT ILLNESS: She is a 53-year-old female with a history of IBS mixed, AFib on Eliquis and migraines, who I initially saw in October for multiple GI issues including alternating diarrhea and constipation with bloating, sensation of fullness that worsened after her cholecystectomy. Also reports nausea and a sensation of regurgitation as well as food often getting stuck in her chest with instances of choking. No improvement with baclofen. She had a hiatal hernia repair at [facility] in 2012. Also, surgeries include appendectomy for appendicitis and a cholecystectomy remotely. She had an upper GI endoscopy in January 2024 that showed a tortuous esophagus and a fundoplication. She had an esophageal manometry on February 07 which showed hypertensive LES with elevated post swallow residual pressures, which represents a dysfunctional wrap and a recurrent paraesophageal hernia and intact esophageal body peristalsis. 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 Pelvic floor therapy was recommended. She has been taking buspirone which has caused a significant improvement in her bloating, however, dysphagia persists. Continues to take Linzess for constipation and is going to start pelvic floor physical therapy soon. Weight has actually improved, which is a good sign. MEDICATIONS: Current Outpatient Medications on File Prior to Visit Medication Sig Dispense Refill amitriptyline (ELAVIL) 10 mg tablet Take 1 tablet (10 mg total) by mouth nightly at bedtime atorvastatin (LIPITOR) 40 mg tablet Take 1 tablet (40 mg total) by mouth daily 30 tablet 1 albuterol HFA (PROVENTIL HFA,VENTOLIN HFA,PROAIR HFA) 90 mcg/actuation inhaler 2 puffs every 4 (four) hours as needed (Patient not taking: Reported on 11/13/2023) apixaban (ELIQUIS) 5 mg tablet Take 1 tablet (5 mg total) by mouth 2 (two) times a day cephalexin (KEFLEX) 500 mg capsule Take 1 capsule (500 mg total) by mouth every 12 (twelve) hours dicyclomine (BENTYL) 20 mg tablet Take 1 tablet (20 mg total) by mouth 4 (four) times a day as needed (abdominal pain/cramping) 360 capsule 3 docusate sodium (COLACE) 100 mg capsule Take 2 capsules (200 mg total) by mouth nightly famotidine (PEPCID) 20 mg tablet Take 1 tablet (20 mg total) by mouth daily as needed for indigestion or heartburn 180 tablet 3 flecainide (TAMBOCOR) 100 mg tablet TAKE 1 TABLET BY MOUTH TWICE DAILY. START TAKING SATURDAY 07/07 meclizine (ANTIVERT) 12.5 mg tablet Take 1 tablet (12.5 mg total) by mouth 3 (three) times a day asneeded metoprolol XL (TOPROL-XL) 25 mg extended release tablet Take 1 tablet (25 mg total) by mouth daily mirtazapine (REMERON) 15 mg tablet ondansetron (ZOFRAN) 8 mg tablet Take 0.5-1 tablets (4-8 mg total) by mouth every 6 (six) hours as needed for nausea or vomiting [address] (PROTONIX) 40 mg EC tablet Take 1 tablet (40 mg total) by mouth 2 (two) times a daybefore breakfast and dinner 60 tablet 0 No current facility-administered medications on file prior to visit. PHYSICAL EXAMINATION: VITALS: Vitals BP 113/69 Pulse 54 Temp 36.9 ??C (98.5 ??F) Ht 162.6 cm (5' 4 ) Wt 58.5 kg (129 lb) SpO2 99% BMI 22.14 kg/m?? GENERAL: Well-appearing, in no acute distress. HEENT: Sclerae anicteric. ABDOMEN: Soft, non-tender; bowel sounds normal; no masses, no organomegaly. EXTREMITIES: No clubbing, cyanosis or edema, or evident deformity. SKIN: No rash or jaundice. NEUROLOGIC: Grossly non-focal on simple observation with normal insight, memory, affect, and orientation, and no focal weakness evident. OBJECTIVE DATA: CT CAP 10/24 IMPRESSION: No evidence of pulmonary embolism is seen. CT AP 09/23 No acute process is otherwise seen to explain the patient's symptoms. IMPRESSION: No abscess or other acute postoperative complication identified. Trace pelvic edema. 08/19/2023-CTA of the abdomen and pelvis with IV contrast: IMPRESSION: Mild narrowing of the proximal celiac artery with slight post stenotic dilatation. This is of uncertain clinical significance. Slight thickening of the wall of the appendix with small appendicolith proximally. No definite acute findings of the appendix. Please correlate with clinical factors. No aortic aneurysm or dissection. No acute finding. 08/04/2023-Double contrast barium esophagram: showed no evidence of hiatal hernia. Mild GERD seen with productive movers only. Possible gastric diverticulum seen. Mild tertiary non pulsatile esophageal contractions seen Endoscopy EGD in July 2023 for cm gastric polyp, localized mild inflammation in the stomach, irregular Z-line, esophageal spasm, dilation at GE junction performed up to 52 [place] . Diagnosis: A. Gastric polyp, biopsy: - Consistent with hyperplastic polyp. - Negative for intestinal metaplasia and dysplasia. B. Esophagus, biopsy: - Fragments of benign squamous epithelium. C. Stomach, biopsy: - Antral type gastric mucosa showing mild chronic inactive gastritis. - Negative for intestinal metaplasia and dysplasia. - Negative for Helicobacter. Colonoscopy October 2022 5 mm polyp, internal hemorrhoids, small scattered diverticulosis Diagnosis: A. Colon, transverse, biopsy: - Tubular adenoma. - No evidence of high-grade dysplasia or malignancy. B. Colon, random, biopsy: - Colonic mucosa with no significant histopathologic abnormalities. ASSESSMENT AND PLAN: A 53-year-old female with irritable bowel syndrome mixed subtype, constipation secondary to outlet dysfunction, dysphagia likely due to dysfunctional wrap, as well as functional bloating. Pelvic floor dyssynergia. Refer to pelvic floor physical therapy. Dysphagia and regurgitation with gastroesophageal reflux disease. Discussed heartburn could be secondary to stasis in the esophagus. Continue pantoprazole and refer to [facility] for potential fundoplication repair. Chronic constipation. Start Linzess before breakfast. Discussed diarrhea can occur for the first 10days, which is expected. Bloating. Improved with buspirone with weight gain. Continue buspirone 10 mg twice daily. Prescription was refilled. Follow up in 6 months. ELECTRONICALLY SIGNED - 02/22/2024 01:19 PM Rose Negron M.D. Credit Card Associatedairy science teacher [address] [address] administrative sales assistant Academic office TELMA/leeroy documented in this encounter Plan of Treatment Upcoming Encounters Date Type Department Care Team (Latest Contact Info) Description 09/07/2024 8:30 AM NEON TECHNICIAN Hospital Encounter [facility] [address] [place] [phone] Forest Catherine MD [address] [place] [address] 09/07/2024 8:30 AM NEON TECHNICIAN - 09/07/2024 9:00 AM NEON TECHNICIAN Surgery [facility] [address] [place] [phone] Forest Catherine MD [address] [place] [address] EGD w/Endo Flip & YI placement Scheduled Procedures Name Priority Associated Diagnoses Date/Ti me ESOPHAGOGASTRODUODENOSCOPY Hiatal hernia Gastroesophageal reflux disease, unspecified whether esophagitis present 09/07/2024 8:30 AM NEON TECHNICIAN Scheduled Referrals Name Type Priority Associated Diagnoses Order Schedule Ambulatory referral order to Physical Therapy - Outpatient Referral Routine Dyssynergic defecation Expected: 03/04/2024 (Approximate), Expires: 02/18/2025 Ambulatory referral to Minimally Invasive Surgery Outpatient Referral Routine Hiatal hernia Expected: 03/04/2024 (Approximate), Expires: 02/18/2025 documented as of this encounter Visit Diagnoses Diagnosis Dyssynergic defecation- Primary Hiatal hernia Diaphragmatic hernia without mention of obstruction or gangrene Constipation due to outlet dysfunction Esophageal dysphagia Dysphagia, pharyngoesophageal phase Regurgitation of food Hiatal hernia Diaphragmatic hernia without mention of obstruction or gangrene Gastroesophageal reflux disease, unspecified whether esophagitis present documented in this encounter Discontinued Medications Medication Sig Discontinue Reason Start Date End Da te prucalopride (MOTEGRITY) 2 mg tablet Take 1 tablet (2 mg total) by mouth daily 11/13/2023 02/19/2024 busPIRone (BUSPAR) 10 mg tabletIndications:Genera lized Anxiety Disorder Take 1 tablet (10 mg total) by mouth 3 (three) times a day Reorder 11/26/2023 02/19/2024 documented as of this encounter Care Teams Supervisor Refractory Products Relationship Specialty Start Date End Date Parmjit Dai MD PCP - General 12/31/20 Mere Landa NP Nurse Practitioner 02/07/20 Tico Burton MD Surgeon General Surgery 08/09/21 Ivan Liang MD Consulting Physician General Surgery 09/09/23 documented as of this encounter
--- OUTSIDE RECORDS SUMMARY | 2024-08-16 04:31 | XMS_ITS | Encounter Summary ---
Author Organization [facility] Address [address] [place] [address] Phone Care Team Providers Care Certified Medical Coding Specialist Name Role Phone Mere Landa NP Unavailable [phone] Parmjit Dai MD Primary Care Provider [phone] Tico Burton MD Unavailable [phone] Ivan Liang MD Unavailable Encounter Details Date Type Department Care Team (Late st Contact Info) Description 07/20/2024 Orders Only [facility] Gastroenterology [address] [facility] 12th [place] [address] [place] [phone] Rose Negron MD [address] [place] [address] Social History Tobacco Use Types Packs/Day Years Used Date Smoking Tobacco: Former Cigarettes 1 984 - 1999 Vaping Smokeless Tobacco: Never Comments:off and on Alcohol Use Standard Drinks/Week Comments No 0 (1 standard drink = 0.6 oz pur e alcohol) on occasion [facility] Utilities Answer Date Recorded In the past 12 months has [employer] electric, gas, oil, or water company threatened [...] often do you attend chur ch or church services? Never 09/09/2023 Do you belong to [...] on file Legal Sex Female 10:06 AM SELF PAY SPECIALIST Gender Identity Female 06/17/2024 7:02 AM CDT Sexual Orientation Not on file documented as of this encounter Plan of Treatment Upcoming Encounters Date Type Department Care Team (Latest Contact Info) Description 09/07/2024 8:30 AM SELF PAY SPECIALIST Hospital Encounter [facility] [address] [place] [phone] Forest Catherine MD [address] [address] 09/07/2024 8:30 AM SELF PAY SPECIALIST - 09/07/2024 9:00 AM SELF PAY SPECIALIST Surgery [facility] [address] [place] [phone] Forest Catherine MD [address] [address] EGD w/Endo Flip & YI placement Scheduled Procedures Name Priority Associated Diagnoses Date/Ti me ESOPHAGOGASTRODUODENOSCOPY Hiatal hernia Gastroesophageal reflux disease, unspecified whether esophagitis present 09/07/2024 8:30 AM SELF PAY SPECIALIST documented as of this encounter Visit Diagnoses Not on filedocumented in this encounter Additional Health Concerns Infection Onset Date Last Indicated Resolved Time C. difficile suspected 07/21/2024 07/21/202407/22 3:05 AM SELF PAY SPECIALIST documented as of this encounter Care Teams Certified Medical Coding Specialist Relationship Specialty Start Date End Date Parmjit Dai MD PCP - General 12/31/20 Mere Landa NP Nurse Practitioner 02/07/20 Tico Burton MD Surgeon General Surgery 08/09/21 Ivan Liang MD Consulting Physician General Surgery 09/09/23 documented as of this encounter
--- OUTSIDE RECORDS SUMMARY | 2024-08-16 04:31 | XMS_ITS | Encounter Summary ---
Author Organization [facility] Healthcare Address [address] [place] [address] Care Team Providers Care Rewinder Operator Helper Name Role Phone Mere Landa NP Unavailable [phone] Parmjit Dai MD Primary Care Provider [phone] Tico Burton MD Unavailable [phone] Ivan Liang MD Unavailable Reason for Referral * Gastroenterology (Routine) - Closed Specialty Diagnoses / Procedures Referred By Loreta ledbetter Referred To Contact Diagnoses Irritable bowel syndrome with both constipation and diarrhea Procedures High Resolution Anorectal Motility (Rectal Sensation/Tone) with Balloon Expulsion - Rose Negron MD [address] [facility] [address] [place] [address] Phone: tel: fax: [address] [address] Referral ID Status Reason Start Date Expiration Date Visits Re quested Visits Authorized [id number] Closed 11/24/2023 12/23/2024 1 1 Reason for Visit * Auth/Cert (Routine) Specialty Diagnoses / Procedures Referred By Loreta ledbetter Referred To Contact Diagnoses Gastroesophageal reflux disease, unspecified whether esophagitis present Other chronic gastritis without hemorrhage Esophageal dysmotility Gastroesophageal reflux disease, unspecified whether esophagitis present [K21.9] Other chronic gastritis without hemorrhage [K29.50] Esophageal dysmotility [K22.4] Procedures VT ESOPHAGOGASTRODUODENOSCOPY TRANSORAL DIAGNOSTIC VT EGD REMOVAL TUMOR POLYP/OTHER LESION SNARE TECH ESOPHAGOGASTRODUODENOSCOPY with manometry catheter placement Referral ID Status Reason Start Date Expiration Date Visits Re quested Visits Authorized [id number] 1 1 Encounter Details Date Type Department Care Team (Latest Contact Info) Description 02/08/2024 7:10 AM CDT - 02/08/2024 11:59 PM CDT Hospital Encounter [facility] [address] [facility] [address] [place] [id number] Irritable bowel syndrome with both constipation and diarrhea Discharge Disposition: Discharge to home or self care Social History Tobacco Use Types Packs/Day Years Used Date Smoking Tobacco: Former Cigarettes 1 4 - 1999 Vaping Smokeless Tobacco: Never Comments:off and on Alcohol Use Standard Drinks/Week Comments No 0 (1 standard drink = 0.6 oz pur e alcohol) on occasion [employer] Utilities Answer Date Recorded In the past 12 months has [employer], gas, oil, or water [employer] threatened to shut off services in your [...] 09/09/2023 How often do you attend chur or tenriism services? Never 09/09/2023 Do you belong to any clubs o r organizations such as hindu groups, unions, fraternal or athletic groups, or [...] on file Legal Sex Female 10:06 AM GALLERY MANAGER Gender Identity Female 06/17/2024 7:02 AM CDT Sexual Orientation Not on file documented as of this encounter Discharge Instructions * Discharge Instructions* Maty Hammond RN - 02/08/2024 9:50 AM CDT .Resume normal activities you were doing at home. Resume diet you were on at home Resume home medications . For questions or concerns please call the Motility Nurse during normal business hours (7:00 am to 3:30 pm) at [phone] Patient received copy and understands the discharge insructions. documented in this encounter Medications at Time [...] Discharge Disposition Disposition Code Departure Means Destination Discharge to home or self care documented in this encounter Plan of Treatment Upcoming Encounters Date Type Department Care Team (Latest Contact Info) Description 09/07/2024 8:30 AM [facility] Hospital Encounter [facility] [address] [place] [phone] Forest Catherine MD [address] [address] 09/07/2024 8:30 AM GALLERY MANAGER - 09/07/2024 9:00 AM [facility] Surgery [facility] [address] [place] [phone] Forest Catherine MD [address] [address] EGD w/Endo Flip & YI placement Scheduled Procedures Name Priority Associated Diagnoses Date/Ti la ESOPHAGOGASTRODUODENOSCOPY Hiatal hernia Gastroesophageal reflux disease, unspecified whether esophagitis present 09/07/2024 8:30 AM GALLERY MANAGER documented as of this encounter Procedures Procedure Name Priority Date/Time Associated Diagnosis Comments HIGH RESOLUTION ANORECTAL MOTILITY (RECTAL SENSATION/TONE) WITH BALLOON EXPULSION Routine 02/08/2024 2:47 PM CDT Irritable bowel syndrome with both constipation and diarrhea documented in this encounter Results * High Resolution Anorectal Motility (Rectal Sensation/Tone) with Balloon Expulsion - (02/08/2024 2:47 PM CDT) Anatomical Region Laterality Modality Other Rose Negron MD GI LAB PROCEDURE ORDERABLES Fi nal Result documented in this encounter Visit Diagnoses Diagnosis Irritable bowel syndrome with both constipation and diarrhea Hiatal hernia Diaphragmatic hernia without mention of obstruction or gangrene Gastroesophageal reflux disease, unspecified whether esophagitis present documented in this encounter Care Teams Rewinder Operator Helper Relationship Specialty Start Date End Date Parmjit Dai MD PCP - General 12/31/20 Mere Landa NP Nurse Practitioner 02/07/20 Tico Burton MD Surgeon General Surgery 08/09/21 Ivan Liang MD Consulting Physician General Surgery 09/09/23 documented as of this encounter
--- OUTSIDE RECORDS SUMMARY | 2024-08-16 04:31 | XMS_ITS | Encounter Summary ---
Author Organization [facility] Healthcare Address [address] [place] [address] Care Team Providers Care Manager Regional Name Role Phone Mere Landa NP Unavailable [phone] Parmjit Dai MD Primary Care Provider [phone] Tico Burton MD Unavailable [phone] Ivan Liang MD Unavailable Encounter Details Date Type Department Care Team (Late st Contact Info) Description 02/01/2024 Telephone [facility] [address] [address] Lamar Figueroa RN Social History Tobacco Use Types Packs/Day Years Used Date Smoking Tobacco: Former Cigarettes 1 4 - 1999 Vaping Smokeless Tobacco: Never Comments:off and on Alcohol Use Standard Drinks/Week Comments No 0 (1 standard drink = 0.6 oz pur e alcohol) on occasion [facility] Utilities Answer Date Recorded In the past 12 months has [employer], gas, oil, or water company threatened [...] often do you attend chur ch or catholic services? Never 09/09/2023 Do you belong to any clubs o r organizations such as taoism groups, unions, fraternal or athletic groups, or [...] place to sleep or slept in a chcf (including now)? No 09/09/2023 Personal Safety Answer Date Recorded Have you ever been in or are you currently in a harmful physical or emotional relationship or is someone making you feel afraid or unsafe? Denies 10/07/2023 Comments No Sex and Gender Information Value Date Recorded Sex Assigned at Not on file Legal Sex Female 10:06 AM CONTAINER PACKER OPERATOR Gender Identity Female 06/17/2024 7:02 AM CDT Sexual Orientation Not on file documented as of this encounter Miscellaneous Notes * Telephone Encounter - Lamar Figueroa RN - 02/01/2024 10:47 AM CDT GI PROCEDURE PRE CALL 7 day call Discussed with: Unable to get a hold of patient, left message [x] Spoke with patient and confirmed procedure, physician, location, date, arrival time [] No answer. Left voicemail asking patient to return call to [facility]. GENERAL INSTRUCTIONS [x] Bring medication list, photo ID, and insurance card [] Review general procedure process. The Endo nurse will review your medical history, place an IV, and you will meet anesthesia team. We will monitor you after the procedure until it is safe for you to go home. Please plan to spend at least four hours here for the entire process. [x] Patient will need a ambulette driver or responsible adult. Since you will be receiving sedation, you willnot be able to drive or leave without someone who can monitor you. You must have a ride arranged toand from the hospital with a responsible adult. If you will be going home by way of a transport service a responsible adult will need to be with you. The nurse will call to confirm your transportation and if they are unable to confirm your procedure will be cancelled. [x] Instructed patient to removed all jewelry and piercing before procedure. Notes/Issues: Left message for [facility] regarding EGD with Manometry on 02/08/2024 to arrive at 7 am or the time you were instructed to for manometry. Left the above general instructions. Provided number to call Evelyn [phone] if do not have instructions, have not been instructed on holding Eliquis, have questions or unable to come. documented in this encounter Plan of Treatment Upcoming Encounters Date Type Department Care Team (Latest Contact Info) Description 09/07/2024 8:30 AM CONTAINER PACKER OPERATOR Hospital Encounter [facility] [address] [place] [phone] Forest Catherine MD [address] [address] 09/07/2024 8:30 AM CONTAINER PACKER OPERATOR - 09/07/2024 9:00 AM CONTAINER PACKER OPERATOR Surgery [facility] [address] [place] [phone] Forest Catherine MD [address] [address] EGD w/Endo Flip & YI placement Scheduled Procedures Name Priority Associated Diagnoses Date/Ti me ESOPHAGOGASTRODUODENOSCOPY Hiatal hernia Gastroesophageal reflux disease, unspecified whether esophagitis present 09/07/2024 8:30 AM CONTAINER PACKER OPERATOR documented as of this encounter Visit Diagnoses Not on filedocumented in this encounter Care Teams Manager Regional Relationship Specialty Start Date End Date Parmjit Dai MD PCP - General 12/31/20 Mere Landa NP Nurse Practitioner 02/07/20 Tico Burton MD Surgeon General Surgery 08/09/21 Ivan Liang MD Consulting Physician General Surgery 09/09/23 documented as of this encounter
--- OUTSIDE RECORDS SUMMARY | 2024-08-16 04:31 | XMS_ITS | Encounter Summary ---
Author Organization [facility] Healthcare Address [address] [place] [address] Care Team Providers Care Tractor Operator Name Role Phone Mere Landa NP Unavailable [phone] Parmjit Dai MD Primary Care Provider [phone] Tico Burton MD Unavailable [phone] Ivan Liang MD Unavailable Reason for Referral * Gastroenterology (Routine) - Closed Specialty Diagnoses / Procedures Referred By Loreta lebdetter Referred To Contact Diagnoses Gastroesophageal reflux disease with esophagitis without hemorrhage History of repair of hiatal hernia Esophageal dysmotility Procedures High resolution esophageal motility (manometry) - Rose Negron MD [address] [facility] [address] [place] [address] Phone: tel: fax: [facility] (All Locations) Referral ID Status Reason Start Date Expiration Date Visits Re quested Visits Authorized [id number] Closed 11/13/2023 12/12/2024 1 1 Reason for Visit * Auth/Cert (Routine) Specialty Diagnoses / Procedures Referred By Loreta ledbetter Referred To Contact Diagnoses Gastroesophageal reflux disease, unspecified whether esophagitis present Other chronic gastritis without hemorrhage Esophageal dysmotility Gastroesophageal reflux disease, unspecified whether esophagitis present [K21.9] Other chronic gastritis without hemorrhage [K29.50] Esophageal dysmotility [K22.4] Procedures NC ESOPHAGOGASTRODUODENOSCOPY TRANSORAL DIAGNOSTIC NC EGD REMOVAL TUMOR POLYP/OTHER LESION SNARE TECH ESOPHAGOGASTRODUODENOSCOPY with manometry catheter placement Referral ID Status Reason Start Date Expiration Date Visits Re quested Visits Authorized [id number] 1 1 Encounter Details Date Type Department Care Team (Latest Contact Info) Description 02/08/2024 7:10 AM CDT - 02/08/2024 11:59 PM CDT Hospital Encounter [facility] [address] [facility] [address] [place] [address] Gastroesophageal reflux disease with esophagitis without hemorrhage; History of repair of hiatal hernia; Esophageal dysmotility Discharge Disposition: Discharge to home or self care Social History Tobacco Use Types Packs/Day Years Used Date Smoking Tobacco: Former Cigarettes 1 - 1999 Vaping Smokeless Tobacco: Never Comments:off and on Alcohol Use Standard Drinks/Week Comments No 0 (1 standard drink = 0.6 oz pur e alcohol) on occasion [employer] Utilities Answer Date Recorded In the past 12 months has [employer], gas, oil, or water [employer] threatened to shut off services in your [...] How often do you attend chur or pentecostal services? Never 09/09/2023 Do you [...] place to sleep or slept in a retirement (including now)? No 09/09/2023 Personal Safety Answer Date Recorded Have you ever been in or are you currently in a harmful physical or emotional relationship or is someone making you feel afraid or unsafe? 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 Resume diet you were on at home Resume home medications. For questions or concerns please call the Motility Nurse during normal business hours (7:00 am to 3:30 pm) at [phone] Patient received copy and understands the discharge [...] (Latest Contact Info) Description 09/07/2024 8:30 AM [facility] Hospital Encounter [facility] [address] [place] [phone] Forest Catherine MD [address] [address] 09/07/2024 8:30 AM HUNTING SALES LEADER - 09/07/2024 9:00 AM [facility] Surgery [facility] [address] [place] [phone] Forest Catherine MD [address] [address] EGD w/Endo Flip & YI placement Scheduled Procedures Name Priority Associated Diagnoses Date/Ti fl ESOPHAGOGASTRODUODENOSCOPY Hiatal hernia Gastroesophageal reflux disease, unspecified whether esophagitis present 09/07/2024 8:30 AM HUNTING SALES LEADER documented as of this encounter Procedures Procedure Name Priority Date/Time Associated Diagnosis Comments HIGH RESOLUTION ESOPHAGEAL MOTILITY (MANOMETRY) Routine 02/08/2024 Gastroesophageal reflux disease with esophagitis without hemorrhage History of repair of hiatal hernia Esophageal dysmotility documented in this encounter Results * High resolution esophageal motility (manometry) - (02/08/2024) Anatomical Region Laterality Modality Other Rose Negron MD GI LAB PROCEDURE ORDERABLES Fi nal Result documented in this encounter Visit Diagnoses Diagnosis Gastroesophageal reflux disease with esophagitis without hemorrhage History of repair of hiatal hernia Esophageal dysmotility Dyskinesia of esophagus Hiatal hernia Diaphragmatic hernia without mention of obstruction or gangrene Gastroesophageal reflux disease, unspecified whether esophagitis present documented in this encounter Care Teams Tractor Operator Relationship Specialty Start Date End Date Parmjit Dai MD PCP - General 12/31/20 Mere Landa NP Nurse Practitioner 02/07/20 Tico Burton MD Surgeon General Surgery 08/09/21 Ivan Liagn MD Consulting Physician General Surgery 09/09/23 documented as of this encounter
--- OUTSIDE RECORDS SUMMARY | 2024-08-16 04:31 | XMS_ITS | Encounter Summary ---
Author Organization [facility] Address [address] [place] [address] Phone Care Team Providers Care Field Service Specialist Name Role Phone Mere Landa NP Unavailable [phone] Parmjit Dai MD Primary Care Provider [phone] Tico Burton MD Unavailable [phone] Ivan Liang MD Unavailable Encounter Details Date Type Department Care Team (Late st Contact Info) Description 05/13/2024 Telephone [facility] [address] [facility] 12th [place] [address] [place] [address] Katharine Carty Social History Tobacco Use Types Packs/Day Years Used Date Smoking Tobacco: Former Cigarettes 1 4 - 1999 Vaping Smokeless Tobacco: Never Comments:off and on Alcohol Use Standard Drinks/Week Comments No 0 (1 standard drink = 0.6 oz pur e alcohol) on occasion [facility] Utilities Answer Date Recorded In the past 12 months has [employer]), gas, oil, or water company threatened to [...] any clubs o r organizations such as anabaptist groups, unions, fraternal or athletic groups, or [...] on file Legal Sex Female 10:06 AM SUPERVISOR MODERN LANGUAGES Gender Identity Female 06/17/2024 7:02 AM CDT Sexual Orientation Not on file documented as of this encounter Ordered Prescriptions Prescription Sig Dispense Quantity Refills Last Filled Start Date End Date pantoprazole DR (PROTONIX) 40 mg EC tablet Take 1 tablet (40 mg total) by mouth 2 (two) times a day before breakfast and dinner 60 tablet 2 05/13/2024 documented in this encounter Miscellaneous Notes * Addendum Note - Earle Quiroz LPN - 05/13/2024 1:43 PM CDTAddended by: EARLE QUIROZ on: 05/13/2024 01:43 PM Modules accepted: Orders * Telephone Encounter - Katharine Carty - 05/13/2024 12:30 PM CDT Images from the original note were not included. Fax from pharmacy requesting a refill. documented in this encounter Plan of Treatment Upcoming Encounters Date Type Department Care Team (Latest Contact Info) Description 09/07/2024 8:30 AM SUPERVISOR MODERN LANGUAGES Hospital Encounter [facility] [address] [place] [phone] Forest Catherine MD [address] [place] [address] 09/07/2024 8:30 AM SUPERVISOR MODERN LANGUAGES - 09/07/2024 9:00 AM SUPERVISOR MODERN LANGUAGES Surgery [facility] [address] [place] [phone] Forest Catherine MD [address] [place] [address] EGD w/Endo Flip & YI placement Scheduled Procedures Name Priority Associated Diagnoses Date/Ti me ESOPHAGOGASTRODUODENOSCOPY Hiatal hernia Gastroesophageal reflux disease, unspecified whether esophagitis present 09/07/2024 8:30 AM SUPERVISOR MODERN LANGUAGES documented as of this encounter Visit Diagnoses Not on filedocumented in this encounter Discontinued Medications Medication Sig Discontinue Reason Start Date End Da te pantoprazole DR (PROTONIX) 40 mg EC tablet Take 1 tablet (40 mg total) by mouth 2 (two) times a day before breakfast and dinner Reorder 03/21/2024 05/13/2024 documented as of this encounter Care Teams Field Service Specialist Relationship Specialty Start Date End Date Parmjit Dai MD PCP - General 12/31/20 Mere Landa NP Nurse Practitioner 02/07/20 Tico Burton MD Surgeon General Surgery 08/09/21 Ivan Liang MD Consulting Physician General Surgery 09/09/23 documented as of this encounter
--- OUTSIDE RECORDS SUMMARY | 2024-08-16 04:31 | XMS_ITS | Encounter Summary ---
Author Organization [facility] Address [address] [place] [address] Phone Care Team Providers Care Production Broacher Name Role Phone Mere Landa NP Unavailable [phone] Parmjit Dai MD Primary Care Provider [phone] Tico Burton MD Unavailable [phone] Ivan Liang MD Unavailable Encounter Details Date Type Department Care Team (Late st Contact Info) Description 04/11/2024 Plan of Care Documentation [facility] Physical Therapy [address] [place] [address] Social History Tobacco Use Types Packs/Day Years Used Date Smoking Tobacco: Former Cigarettes 1 - 1999 Vaping Smokeless Tobacco: Never Comments:off and on Alcohol Use Standard Drinks/Week Comments No 0 (1 standard drink = 0.6 oz pur e alcohol) on occasion [facility] Utilities Answer Date Recorded In the past 12 months has [employer], gas, oil, or water company threatened to [...] often do you attend chur ch or bahai services? Never 09/09/2023 Do you belong to any clubs o r organizations such as confucianist groups, unions, fraternal or athletic groups, or [...] place to sleep or slept in a residential (including now)? No 09/09/2023 Personal Safety Answer Date Recorded Have you ever been in or are you currently in a harmful physical or emotional relationship or is someone making you feel afraid or unsafe? Denies 02/08/2024 Comments No Sex and Gender Information Value Date Recorded Sex Assigned at Not on file Legal Sex Female 10:06 AM GLOBAL TRANSPORTATION MANAGER Gender Identity Female 06/17/2024 7:02 AM CDT Sexual Orientation Not on file documented as of this encounter Plan of Treatment Upcoming Encounters Date Type Department Care Team (Latest Contact Info) Description 09/07/2024 8:30 AM GLOBAL TRANSPORTATION MANAGER Hospital Encounter [facility] [address] [place] [phone] Forest Catherine MD [address] [address] 09/07/2024 8:30 AM GLOBAL TRANSPORTATION MANAGER - 09/07/2024 9:00 AM GLOBAL TRANSPORTATION MANAGER Surgery [facility] [address] [place] [phone] Forest Catherine MD [address] [address] EGD w/Endo Flip & YI placement Scheduled Procedures Name Priority Associated Diagnoses Date/Ti me ESOPHAGOGASTRODUODENOSCOPY Hiatal hernia Gastroesophageal reflux disease, unspecified whether esophagitis present 09/07/2024 8:30 AM GLOBAL TRANSPORTATION MANAGER documented as of this encounter Visit Diagnoses Not on filedocumented in this encounter Care Teams Production Broacher Relationship Specialty Start Date End Date Parmjit Dai MD PCP - General 12/31/20 Mere Landa NP Nurse Practitioner 02/07/20 Tico Burton MD Surgeon General Surgery 08/09/21 Ivan Liang MD Consulting Physician General Surgery 09/09/23 documented as of this encounter
--- OUTSIDE RECORDS SUMMARY | 2024-08-16 04:31 | XMS_ITS | Referral Summary ---
Author Organization [facility] Care Team Providers Care Fixed Income Analyst Name Role Phone Mere Landa NP Unavailable [phone] Parmjit Dai MD Primary Care Provider [phone] Tico Burton MD Unavailable [phone] Ivan Liang MD Unavailable Encounters Date Type Department Care Team Description 08/08/2024 E-Visit [facility] [address] [place] [address] Medical Office Building [address] [place] [address] Rose Negron MD Follow up visit with my primary physician 07/30/2024 Orders Only [facility] Scanning, Provider 07/21/2024 Orders Only [facility] Medicine 12th [place] [address] [place] [address] Rose Negron MD Chronic nausea (Primary Dx); Diarrhea, unspecified type 07/20/2024 Orders Only [facility] [address] [facility] Medicine 12th [place] [address] [place] [address] Rose Negron MD 07/05/2024 Telephone [facility] [address] [facility] 12th [place] [address] [place] [address] Katharine Carty 06/28/2024 Telephone [facility]) [facility] [address] [facility] 12th Floor, [place] [phone] Maura Ray RMA 06/23/2024 Telephone [facility] [address] [place] [phone] Spring Campos RN 06/23/2024 Telephone [facility]) [facility] [address] [facility] 12th Floor, [place] [phone] Render, Maura Recinos RMA from Last 3 Months Allergies Active Allergy [...] breakfast and dinner 60 tablet 2 4 10/05/19 25 Active Active Problems Problem Noted Date Diagnosed Date 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 Continue bowel regimen if needed to avoid straining. No submerging incision for 1 more week. Light duty for another 2 weeks. Patient will call us back with any further questions or concerns. Assessment & Plan (09/03/2023 8:54 AM CERTIFIED MASTER LOCKSMITH): I will discuss her case with GI. [...] (09/10/2022): Added automatically from request for surgery [id number] Cyclical vomiting 09/05/2022 Gastritis 09/05/2022 Gastroesophageal reflux [...] 08/13/2021 Assessment & Plan (08/13/2021 9:33 AM CERTIFIED MASTER LOCKSMITH): Pt complains of pain with urination. Pt also complains of suprapubic pain. Plan - Urine analysis TIA (transient ischemic attack) 08/11/2021 Assessment & Plan (08/13/2021 9:29 AM CERTIFIED MASTER LOCKSMITH): Sarahy Gill 51-year-old female presenting with left [...] mg Assessment & Plan (08/12/2021 6:00 PM CERTIFIED MASTER LOCKSMITH): Sarahy Gill 51-year-old female presenting with left [...] recommendations Assessment & Plan (08/09/2021 6:14 PM CERTIFIED MASTER LOCKSMITH): Patient has a history of IBS with [...] agitation/anxiety Assessment & Plan (08/13/2021 9:30 AM CERTIFIED MASTER LOCKSMITH): Currently mood at baseline. Continue home med Celexa Assessment & Plan (08/12/2021 5:53 PM CERTIFIED MASTER LOCKSMITH): Currently mood at baseline. Continue home med Celexa Assessment & Plan (08/09/2021 6:30 PM CERTIFIED MASTER LOCKSMITH): Per patient has a history of bipolar depressive type Stable at this time Not currently on any medication Patient denies any suicidal homicidal ideation Intussusception intestine (CMS/HCC) 08/09/2021 Assessment & Plan (08/09/2021 6:36 PM CERTIFIED MASTER LOCKSMITH): 08/08/2021 CT abdomen/pelvis with contrast: Possible cystitis, [...] q.day Assessment & Plan (08/13/2021 9:29 AM CERTIFIED MASTER LOCKSMITH): Blood pressure has been under control Metoprolol restarted Assessment & Plan (08/12/2021 5:49 PM CERTIFIED MASTER LOCKSMITH): Blood pressure has been under control Metoprolol has been on hold-to allow for permissive hypertension for the next 24 hours, will restart tomorrow Assessment & Plan (08/09/2021 6:31 PM CERTIFIED MASTER LOCKSMITH): Have reviewed 24 hour blood pressures and [...] consult: Assessment & Plan (08/09/2021 6:12 PM CERTIFIED MASTER LOCKSMITH): CT abdomen pelvis with contrast at [place] yesterday showed intussusception CT abdomen pelvis with contrast at [facility]: Showed resolution of intussusception Patient has generalized [...] monitor Assessment & Plan (08/13/2021 9:29 AM CERTIFIED MASTER LOCKSMITH): Currently in sinus rhythm. Eliquis on hold will resume on August 15. Continue with flecainide Metoprolol restarted Assessment & Plan (08/12/2021 5:54 PM CERTIFIED MASTER LOCKSMITH): Currently in sinus rhythm. Eliquis on hold will resume on August 15. Continue with flecainide Metoprolol on hold will resume tomorrow Assessment & Plan (08/09/2021 6:18 PM CERTIFIED MASTER LOCKSMITH): No acute events since admission Patient on Eliquis Metoprolol for rate control with hold parameters Will continue to monitor Essential tremor 10/12/2018 Assessment & Plan (08/13/2021 9:30 AM CERTIFIED MASTER LOCKSMITH): B/l hand with tremor - no changes in strength Assessment & Plan (08/09/2021 6:30 PM CERTIFIED MASTER LOCKSMITH): Patient reports after waking up had increase [...] consult Assessment & Plan (08/13/2021 9:30 AM CERTIFIED MASTER LOCKSMITH): Currently in no acute exacerbation. -continue Bentyl Assessment & Plan (08/12/2021 5:47 PM CERTIFIED MASTER LOCKSMITH): Currently in no acute exacerbation. -continue Bentyl Assessment & Plan (08/09/2021 6:15 PM CERTIFIED MASTER LOCKSMITH): Patient on Bentyl Monitoring electrolytes Assessment & [...] ibs-d. Will get all the records from [place] and then regroup to discuss possible treatment options. Orthostatic dizziness 09/16/2016 Palpitations 07/29/2016 Migraine headache 07/29/2016 Assessment & Plan (12/18/2021 4:59 PM CDT): Started home Topamax Assessment & Plan (08/09/2021 6:17 PM CERTIFIED MASTER LOCKSMITH): Patient not complaining of headache or migraines at this time Sumatriptan on hold Hypokalemia Immunizations Name Administration Dates Next Due Influenza, Unspecified 07/01/2022,05/01/2021 Social History Tobacco Use Types Packs/Day Years Used Date Smoking Tobacco: Former Cigarettes 1 1999 Vaping Smokeless Tobacco: Never Tobacco Cessation:Counseling Given: Not Answered Comments:off and on Alcohol Use Standard Drinks/Week Comments No 0 (1 standard drink = 0.6 oz pur e alcohol) on occasion [facility] Utilities Answer Date Recorded In the past 12 months has [place], gas, oil, or water [employer] threatened to shut off services in your [...] often do you attend chur ch or oriental orthodox services? Never 09/09/2023 Do you belong to any clubs o r organizations such as yarsani groups, unions, fraternal or athletic groups, or [...] file Legal Sex Female 10:06 AM CERTIFIED MASTER LOCKSMITH Gender Identity Female 06/17/2024 7:02 AM CDT Sexual Orientation Not on file Last Filed [...] Contact Info) Description 09/07/2024 8:30 AM CERTIFIED MASTER LOCKSMITH Hospital Encounter [facility] [address] [place] [phone] Forest Catherine MD [address] [place] [address] 09/07/2024 8:30 AM CERTIFIED MASTER LOCKSMITH - 09/07/2024 9:00 AM CERTIFIED MASTER LOCKSMITH Surgery [facility] [address] [place] [phone] Forest Catherine MD [address] [place] [address] EGD w/Endo Flip & YI placement Scheduled Procedures Name Priority Associated Diagnoses Date/Ti me ESOPHAGOGASTRODUODENOSCOPY Hiatal hernia Gastroesophageal reflux disease, unspecified whether esophagitis present 09/07/2024 8:30 AM CERTIFIED MASTER LOCKSMITH Procedures Procedure Name Priority Date/Time Associated Diagnosis Comments SCAN - RADIOLOGY/IMAGING 07/30/2024 SCREENING MAMMOGRAM BILATERAL W BONG Schedule Routine, Read Routine (OP Routine) 11/11/2023 8:54 AM CDT Screening mammogram, encounter for COLONOSCOPY 10/29/2022 7:59 AM CERTIFIED MASTER LOCKSMITH from Last 3 Months or Most Recently [...] for her next mammogram. Electronically signed by: Ting Newman M.D. Narrative 11/11/2023 9:13 AM CDT EXAMINATION: SCREENING MAMMOGRAM [...] nal Result * COLONOSCOPY (10/29/2022 7:59 AM CERTIFIED MASTER LOCKSMITH) Anatomical Region Laterality Modality Other Narrative Procedure Note Germania Sorto MD - 10/29/2022 7:59 AM CST [facility] Patient Name: Sarahy Gill Procedure Date: 10/29/2022 7:59 AM Date of : 1970 Admit Type: Outpatient Age: 52 Gender: Female Attending MD: Germania Sorto M.D. Room: [facility] ROOM 1 Note Status: Finalized Patient Profile: [...] under direct vision. The Pediatric Colonoscope PCF-H190L [id number] was introducedthrough the anus and advanced to [...] 7:59 AM Procedure Code(s): --- Professional --- 84380, Colonoscopy, flexible; with biopsy, single or multiple Diagnosis Code(s): --- Professional --- K64.8, Other hemorrhoids D12.3, Benign neoplasm of transverse colon (hepatic flexure orsplenic flexure) K52.9, Noninfective gastroenteritis and colitis, unspecified CPT copyright 2020 [employer]. All rights reserved. The codes documented in this report are preliminary and upon roping machine tender reviewmay be revised to meet current compliance requirements. Recognized by the [employer] for promoting quality in endoscopy Germania Sorto MD ENDOSCOPY PROCEDURES Final Result from Last 3 Months or Most Recently Relevant to Health Maintenance Insurance [employer] MEDICARE SOLUTIONS [facility] [facility] [employer] MEDICARE SOLUTIONS [employer] ALLEGIAN Advance Directives For more information, please contact: [phone] Documents on File Type Date Recorded Patient Stockkeeper Expl anation ADVANCE DIRECTIVE 08/14/2021 9:12 AM Raz r of Development Assistant-Medical * Full Code (Latest Code Status on [...] 8:07 AM 10/29/2022 2:30 PM Care Teams Fixed Income Analyst Relationship Specialty Start Date End Date Parmjit Dai MD PCP - General 12/31/20 Mere Landa NP Nurse Practitioner 02/07/20 Tico Burton MD Surgeon General Surgery 08/09/21 Ivan Liang MD Consulting Physician General Surgery 09/09/23
--- OUTSIDE RECORDS SUMMARY | 2024-08-16 04:31 | XMS_ITS | Encounter Summary ---
Author Organization [facility] Address [address] [place] [address] Phone Care Team Providers Care Electric Scoop Operator Name Role Phone Mere Landa NP Unavailable [phone] Parmjit Dai MD Primary Care Provider [phone] Tico Burton MD Unavailable [phone] Ivan Liang MD Unavailable Encounter Details Date Type Department Care Team (Late st Contact Info) Description 04/26/2024 Orders Only [facility] ([facility]) - [facility] Minimally Invasive Surgery [address] [facility] 12th Floor, [place] [address] Say Davila MD PhD [address] [place] [address] Gastroesophageal reflux disease, unspecified whether esophagitis present (Primary Dx) Social History Tobacco Use Types Packs/Day Years Used Date Smoking Tobacco: Former Cigarettes - 1999 Vaping Smokeless Tobacco: Never Comments:off and on Alcohol Use Standard Drinks/Week Comments No 0 (1 standard drink = 0.6 oz pur e alcohol) on occasion [facility] Utilities Answer Date Recorded In the [...] often do you attend chur ch or scientology services? Never 09/09/2023 Do you belong to any clubs o r organizations such as orthodoxy groups, unions, fraternal or athletic groups, or [...] on file Legal Sex Female 10:06 AM METALWORKING INSTRUCTOR Gender Identity Female 06/17/2024 7:02 AM CDT Sexual Orientation Not on file documented as of this encounter Plan of Treatment Upcoming Encounters Date Type Department Care Team (Latest Contact Info) Description 09/07/2024 8:30 AM METALWORKING INSTRUCTOR Hospital Encounter [facility] [address] [place] [phone] Forest Catherine MD [address] [address] 09/07/2024 8:30 AM METALWORKING INSTRUCTOR - 09/07/2024 9:00 AM METALWORKING INSTRUCTOR Surgery [facility] [address] [place] [phone] Forest Catherine MD [address] [address] EGD w/Endo Flip & YI placement Scheduled Orders Name Type Priority Associated Diagnoses Orde r Schedule YI - GI Routine Gastroesophageal reflux disease, unspecified whether esophagitis present Expected: 04/27/2024 (Approximate), Expires: 04/26/2025 Scheduled Procedures Name Priority Associated Diagnoses Date/Ti me ESOPHAGOGASTRODUODENOSCOPY Hiatal hernia Gastroesophageal reflux disease, unspecified whether esophagitis present 09/07/2024 8:30 AM METALWORKING INSTRUCTOR documented as of this encounter Visit Diagnoses Diagnosis Gastroesophageal reflux disease, unspecified whether esophagitis present- Primary Hiatal hernia Diaphragmatic hernia without mention of obstruction or gangrene Gastroesophageal reflux disease, unspecified whether esophagitis present documented in this encounter Care Teams Electric Scoop Operator Relationship Specialty Start Date End Date Parmjit Dai MD PCP - General 12/31/20 Mere Landa NP Nurse Practitioner 02/07/20 Tico Burton MD Surgeon General Surgery 08/09/21 Ivan Liang MD Consulting Physician General Surgery 09/09/23 documented as of this encounter
--- OUTSIDE RECORDS SUMMARY | 2024-08-16 04:31 | XMS_ITS | Encounter Summary ---
Author Organization [facility] Address [address] [place] [address] Phone Care Team Providers Care Display Maker Name Role Phone Mere Landa NP Unavailable [phone] Parmjit Dai MD Primary Care Provider [phone] Tico Burton MD Unavailable [phone] Ivan Liang MD Unavailable Encounter Details Date Type Department Care Team (Late st Contact Info) Description 06/28/2024 Telephone [facility] ([facility]) - [facility] Minimally Invasive Surgery [address] [facility] 12th Floor, [place] [address] Maura Ray RMA Social History Tobacco Use Types Packs/Day Years Used Date Smoking Tobacco: Former Cigarettes 1 984 - 1999 Vaping Smokeless Tobacco: Never Comments:off and on Alcohol Use Standard Drinks/Week Comments No 0 (1 standard drink = 0.6 oz pur e alcohol) on occasion [facility] Utilities Answer Date Recorded In the past [...] often do you attend chur ch or uatsdin services? Never 09/09/2023 Do you belong to any clubs o r organizations such as episcopalian groups, unions, fraternal or athletic groups, or [...] place to sleep or slept in a jail (including now)? No 09/09/2023 Personal Safety Answer Date Recorded Have you ever been in or are you currently in a harmful physical or emotional relationship or is someone making you feel afraid or unsafe? Denies 02/08/2024 Comments No Sex and Gender Information Value Date Recorded Sex Assigned at Not on file Legal Sex Female 10:06 AM MEDICAL LABORATORY TECHNOLOGIST Gender Identity Female 06/17/2024 7:02 AM CDT Sexual Orientation Not on file documented as of this encounter Miscellaneous Notes * Telephone Encounter - Maura Ray RMA - 06/28/2024 12:44 PM CDT Images from the original note were not included. Date: 06/28/2024 Reason for Call: Reschedule Testing Patient Provider: Say Davila M.D., Ph.D. Medical/Surgical Information: Marah Byrnes RMA Render, Denise E., RMA What testing is she scheduled for? Probably not a good idea to consider any esophageal test till she is through the acute phase. For instance, if she gets prescribed an opioid, it might affect manometry. Erasto Previous Messages ----- Message ----- From: Marua Ray RMA Sent: 06/23/2024 12:06 PM CDT To: JOHNY Gould Subject: EGD with Endoflip 07/15/2024 Devaughn Mesa pt is going to be having arthroscopic surgery on her knee 07/14 due to an injury. Is this going to cause an issue with Dr. Catherine being able to do the testing the following day? I didn't want to have the pt reschedule if this would be ok. I think rescheduling would be better since I am not sure how well she is going to be getting around for the testing. Please advise. Thank you, Maura ZABALA ([facility]) Outcome/Plan: Called pt and advised of Dr. Catherine recommendations. Advised pt that we can get her rescheduled for the testing after her surgery. Transferred pt to [facility]. Pt agrees with and understands this plan. documented in this encounter Plan of Treatment Upcoming Encounters Date Type Department Care Team (Latest Contact Info) Description 09/07/2024 8:30 AM MEDICAL LABORATORY TECHNOLOGIST Hospital Encounter [facility] [address] [place] [phone] Forest Catherine MD [address] [address] 09/07/2024 8:30 AM MEDICAL LABORATORY TECHNOLOGIST - 09/07/2024 9:00 AM MEDICAL LABORATORY TECHNOLOGIST Surgery [facility] [address] [place] [phone] Forest Catherine MD [address] [address] EGD w/Endo Flip & YI placement Scheduled Procedures Name Priority Associated Diagnoses Date/Ti me ESOPHAGOGASTRODUODENOSCOPY Hiatal hernia Gastroesophageal reflux disease, unspecified whether esophagitis present 09/07/2024 8:30 AM MEDICAL LABORATORY TECHNOLOGIST documented as of this encounter Visit Diagnoses Not on filedocumented in this encounter Care Teams Display Maker Relationship Specialty Start Date End Date Parmjit Dai MD PCP - General 12/31/20 Mere Landa NP Nurse Practitioner 02/07/20 Tico Burton MD Surgeon General Surgery 08/09/21 Ivan Liang MD Consulting Physician General Surgery 09/09/23 documented as of this encounter
--- OUTSIDE RECORDS SUMMARY | 2024-08-16 04:31 | XMS_ITS | Encounter Summary ---
Author Organization [facility] Address [address] [place] [address] Care Team Providers Care Broom Maker Name Role Phone Mere Landa NP Unavailable [phone] Parmjit Dai MD Primary Care Provider [phone] Tico Burton MD Unavailable [phone] Ivan Liang MD Unavailable Encounter Details Date Type Department Care Team (Late st Contact Info) Description 02/03/2024 Telephone [facility] [address] [address] Lamar Figueroa RN Social History Tobacco Use Types Packs/Day Years Used Date Smoking Tobacco: Former Cigarettes 1 4 - 1999 Vaping Smokeless Tobacco: Never Comments:off and on Alcohol Use Standard Drinks/Week Comments No 0 (1 standard drink = 0.6 oz pur e alcohol) on occasion [facility] Utilities Answer Date Recorded In the past 12 months has [employer], gas, oil, or water company threatened [...] often do you attend chur ch or restorationist services? Never 09/09/2023 Do you belong to any clubs o r organizations such as cheondoism groups, unions, fraternal or athletic groups, or [...] on file Legal Sex Female 10:06 AM CLINICAL PROJECT ASSISTANT Gender Identity Female 06/17/2024 7:02 AM CDT Sexual Orientation Not on file documented as of this encounter Miscellaneous Notes * Telephone Encounter - Lamar Figueroa RN - 02/03/2024 2:37 PM CDT GI PROCEDURE PRE CALL 3 day call Discussed with: Unable to get a hold of patient, left message [] Spoke with patient and confirmed procedure, physician, location, date, arrival time [x] No answer. Left voicemail asking patient to return call to [facility]. GENERAL INSTRUCTIONS [x] Bring medication list, photo ID, and insurance card [x] Review general procedure process. The Endo nurse will review your medical history, place an IV,and you will meet anesthesia team. We will monitor you after the procedure until it is safe for youto go home. Please plan to spend at least four hours here for the entire process. [x] Confirm patient has a bicycle taxi driver or responsible adult. Since you will be receiving sedation, you will not be able to drive or leave without someone who can monitor you. You must have a ride arranged to and from the hospital with a responsible adult. If you will be going home by way of a transport service a responsible adult will need to be with you. The nurse will call to confirm your transportation and if they are unable to confirm your procedure will be cancelled. [x] Instructed patient to removed all jewelry and piercing before procedure. Notes/Issues: Left another message for Nkechi regarding EGD with Manometry on 02/08/2024 to arrive at 7 am or the time you were instructed to for manometry. Left the above general instructions. Make sure you hold your blood thinner 3 days prior to your procedure. Provided number to call Evelyn [phone] if do not have instructions, have questions or unable to come. documented in this encounter Plan of Treatment Upcoming Encounters Date Type Department Care Team (Latest Contact Info) Description 09/07/2024 8:30 AM CLINICAL PROJECT ASSISTANT Hospital Encounter [facility] [address] [place] [phone] Forest Catherine MD [address] [address] 09/07/2024 8:30 AM CLINICAL PROJECT ASSISTANT - 09/07/2024 9:00 AM CLINICAL PROJECT ASSISTANT Surgery [facility] [address] [place] [phone] Forest Catherine MD [address] [address] EGD w/Endo Flip & YI placement Scheduled Procedures Name Priority Associated Diagnoses Date/Ti me ESOPHAGOGASTRODUODENOSCOPY Hiatal hernia Gastroesophageal reflux disease, unspecified whether esophagitis present 09/07/2024 8:30 AM CLINICAL PROJECT ASSISTANT documented as of this encounter Visit Diagnoses Not on filedocumented in this encounter Care Teams Broom Maker Relationship Specialty Start Date End Date Parmjit Dai MD PCP - General 12/31/20 Mere Landa NP Nurse Practitioner 02/07/20 Tico Burton MD Surgeon General Surgery 08/09/21 Ivan Liang MD Consulting Physician General Surgery 09/09/23 documented as of this encounter
--- OUTSIDE RECORDS SUMMARY | 2024-08-16 04:31 | XMS_ITS | Encounter Summary ---
Author Organization [facility] Address [address] [place] [address] Phone Care Team Providers Care Military Logistics Specialist Name Role Phone Mere Landa NP Unavailable [phone] Parmjit Dai MD Primary Care Provider [phone] Tico Burton MD Unavailable + [phone] Ivan Liang MD Unavailable Encounter Details Date Type Department Care Team (Late st Contact Info) Description 03/21/2024 Telephone [facility] Gastroenterology [address] [facility] 12th [place] [address] [place] [address] Katharine Carty Social History Tobacco Use Types Packs/Day Years Used Date Smoking Tobacco: Former Cigarettes 1 4 - 1999 Vaping Smokeless Tobacco: Never Comments:off and on Alcohol Use Standard Drinks/Week Comments No 0 (1 standard drink = 0.6 oz pur e alcohol) on occasion [facility] Utilities Answer Date Recorded In the past 12 months has [employer], gas, oil, or water company threatened to [...] often do you attend chur ch or sikhism services? Never 09/09/2023 Do you belong to [...] on file Legal Sex Female 10:06 AM SENIOR SALES EXECUTIVE Gender Identity Female 06/17/2024 7:02 AM CDT Sexual Orientation Not on file documented as of this encounter Miscellaneous Notes * Telephone Encounter - Evelyn Kerns LPN - 03/21/2024 9:31 AM CDT Prescription refilled. * Telephone Encounter - Katharine Carty - 03/21/2024 8:24 AM CDT Images from the original note were not included. Received fax from pharmacy for a refill. documented in this encounter Plan of Treatment Upcoming Encounters Date Type Department Care Team (Latest Contact Info) Description 09/07/2024 8:30 AM SENIOR SALES EXECUTIVE Hospital Encounter [facility] [address] [place] [phone] Forest Catherine MD [address] [address] 09/07/2024 8:30 AM SENIOR SALES EXECUTIVE - 09/07/2024 9:00 AM SENIOR SALES EXECUTIVE Surgery [facility] [address] [place] [phone] Forest Catherine MD [address] [address] EGD w/Endo Flip & YI placement Scheduled Procedures Name Priority Associated Diagnoses Date/Ti me ESOPHAGOGASTRODUODENOSCOPY Hiatal hernia Gastroesophageal reflux disease, unspecified whether esophagitis present 09/07/2024 8:30 AM SENIOR SALES EXECUTIVE documented as of this encounter Visit Diagnoses Not on filedocumented in this encounter Care Teams Military Logistics Specialist Relationship Specialty Start Date End Date Parmjit Dai MD PCP - General 12/31/20 Mere Landa NP Nurse Practitioner 02/07/20 Tico Burton MD Surgeon General Surgery 08/09/21 Ivan Liang MD Consulting Physician General Surgery 09/09/23 documented as of this encounter
--- OUTSIDE RECORDS SUMMARY | 2024-08-16 04:31 | XMS_ITS | Encounter Summary ---
Author Organization [facility] Healthcare Address [address] [place] [address] Care Team Providers Care Supervisor Composing Room Name Role Phone Mere Landa NP Unavailable [phone] Parmjit Dai MD Primary Care Provider [phone] Tico Burton MD Unavailable [phone] Ivan Liang MD Unavailable Reason for Visit * Auth/Cert (Routine) Specialty Diagnoses / Procedures Referred By Loreta t Referred To Contact Diagnoses Gastroesophageal reflux disease, unspecified whether esophagitis present Other chronic gastritis without hemorrhage Esophageal dysmotility Gastroesophageal reflux disease, unspecified whether esophagitis present [K21.9] Other chronic gastritis without hemorrhage [K29.50] Esophageal dysmotility [K22.4] Procedures AK ESOPHAGOGASTRODUODENOSCOPY TRANSORAL DIAGNOSTIC AK EGD REMOVAL TUMOR POLYP/OTHER LESION SNARE TECH ESOPHAGOGASTRODUODENOSCOPY with manometry catheter placement Referral ID Status Reason Start Date Expiration Date Visits Re quested Visits Authorized [id number] 1 1 Encounter Details Date Type Department Care Team (Latest Contact Info) Description 02/08/2024 7:10 AM CDT - 02/08/2024 9:28 AM CDT Hospital Encounter [facility] [address] [facility] [address] [place], [place] [phone] Alecia Newman MD [address] [place] [address] Gastroesophageal reflux disease, unspecified whether esophagitis present; Other chronic gastritis without hemorrhage; Esophageal dysmotility Discharge Disposition: Discharge to home or self care Social History Tobacco Use Types Packs/Day Years Used Date Smoking Tobacco: Former Cigarettes 1 - 1999 Vaping Smokeless Tobacco: Never Comments:off and on Alcohol Use Standard Drinks/Week Comments No 0 (1 standard drink = 0.6 oz pur e alcohol) on occasion [facility] Utilities Answer Date Recorded In the past 12 months has e [employer], gas, oil, or water [employer] threatened to shut off services in your [...] any clubs o r organizations such as sabianism groups, unions, fraternal or athletic groups, or [...] place to sleep or slept in a snf (including now)? No 09/09/2023 Personal Safety Answer Date Recorded Have you ever been in or are you currently in a harmful physical or emotional relationship or is someone making you feel afraid or unsafe? 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 Gender Identity Female 06/17/2024 7:02 AM CDT Sexual Orientation Not on file documented as of this encounter Last Filed Vital Signs Vital Sign Reading Time Taken Comments Blood Pressure 124/66 02/08/2024 9:08 AM CDT Pulse 55 02/08/2024 9:08 AM CDT Temperature 36.5 ??C (97.7 ??F) 02/08/2024 8:38 AM C DT Respiratory Rate 12 02/08/2024 9:08 AM CDT Oxygen Saturation 99% 02/08/2024 9:08 AM CDT Inhaled Oxygen Concentration - - [...] (HCC) Anemia Anxiety Arthritis Bipolar affect, depressed ([facility]) Chronic nausea 09/24/2021 Colon polyp Cyclic vomiting syndrome Depression GERD (gastroesophageal reflux disease) Headache, tension-type Hypertension Hypotension IBS (irritable bowel syndrome) Migraine Nausea and vomiting, unspecified vomiting type 12/18/2021 Stroke ([facility]) TIA Weight loss Past Surgical History: Procedure Laterality Date ABDOMINAL SURGERY 2013 hiatel hernia repair APPENDECTOMY ARTHROSCOPIC SURGERY Left 1984,1994,2001 knee SECTION 1992 CHOLECYSTECTOMY COLONOSCOPY 1-2yrs ago COLONOSCOPY 10/29/2022 ENDOMETRIAL ABLATION HERNIA REPAIR POLYPECTOMY TUBAL LIGATION Social History Tobacco Use Smoking status: Former Current packs/day: 0.00 Types: Vaping, Cigarettes Start date: 1983 Quit date: 2000 Years since quittin.4 Smokeless tobacco: Never Tobacco comments: off and on Substance and Sexual Activity Drug use: Yes Types: Marijuana Comment: occasionally last used 1-24 Sexual activity: Defer control/protection: Post-menopausal Alcohol Use: [...] by mouth nightly at bedtime 02/03/24 Yes ProviderRosanne MD atorvastatin (LIPITOR) 40 mg tablet Take [...] TWICE DAILY. START TAKING Saturday 07/0707/08/22 Yes ProviderRosanne MD metoprolol XL (TOPROL-XL) 25 mg extended release tablet Take 1 tablet (25 mg total) by mouth daily Yes ProviderRosanne MD ondansetron (ZOFRAN) 8 mg tablet Take [...] Female Attending MD: Alecia Newman M.D. Room: [facility] ENDOSCOPY ROOM 8 Note Status: Finalized Procedure: [...] passed under direct vision. The GIF [id number] endoscope was introduced through the mouth, and [...] (Latest Contact Info) Description 09/07/2024 8:30 AM [facility] Hospital Encounter [facility] [address] [place] [phone] Forest Catherine MD [address] [place] [address] 09/07/2024 8:30 AM WATER TECHNICIAN - 09/07/2024 9:00 AM WATER TECHNICIAN Surgery [facility] [address] [place] [phone] Forest Catehrine MD [address] [place] [address] EGD w/Endo Flip & YI placement Scheduled Procedures Name Priority Associated Diagnoses Date/Ti me ESOPHAGOGASTRODUODENOSCOPY Hiatal hernia Gastroesophageal reflux disease, unspecified whether esophagitis present 09/07/2024 8:30 AM WATER TECHNICIAN documented as of this encounter Procedures Procedure [...] biopsy) 02/08/2024 8:19 AM CDT Narrative PATHOLOGY [facility] - 02/09/2024 12:03 PM CDT EPIC results best viewed via link to PDF [facility] Katerine Lim [facility] [place] [address] Note to Patients: This report may contain [...] Gender: ??F : ??1970 (Age: 53) Address: ??[address] [place] [address] Hospital #: ??[id number] Taken:02/08/2024 Received:02/08/2024 Reported: 02/09/2024 Patient Type: [facility] SDS ?? Service: Gastro Location: Physician(s): ??Alecia Newman M.D. Chelle Colón M.D. Diagnosis: A. ??Stomach, random biopsy: ? [...] ? - No Helicobacter pylori is seen. [facility]/02/09/2024 09:59 By this signature, I attest [...] B1. ??Jar 0. ? dxb/02/08/2024 15:34 PA(s): Jb Herron S, LUCÍA(ASCP)CM By this signature, I attest that the above diagnosis is based upon my personal examination of the slides(and/or other material). Addenda/Procedures The performance characteristics of some immunohistochemical stains, fluorescence in-situ hybridization tests and immunophenotyping by flow cytometry cited in this report (if any) were determined by the Surgical Pathology and Flow Cytometry Departments at [facility] as part of an ongoing vice president quality assurance program and in compliance with federally mandated [...] Surgical Pathology and Flow Cytometry Departments of [facility]. ??It has not been cleared or approved by the U. S. Food and Drug Administration. IMAGES AND SCANNED DOCUMENTS, IF INCLUDED, ONLY VIEWABLE IN PDF VERSION OF REPORT us Alecia Newman MD LAB PATHOLOGY ORDERABLES Final Result PATHOLOGY [facility] 3rd Floor [place], [place] [phone] * EGD (02/08/2024 8:02 AM CDT) Anatomical Region Laterality Modality Other Narrative Procedure Note Alecia Newman MD - 02/08/2024 8:02 AM CDT [facility] ENDOSCOPY [facility] Patient Name: Sarahy Mays Procedure Date: 02/08/2024 8:02 AM Date of : 1970 Admit Type: Outpatient Age: 53 Gender: Female Attending MD: Alecia Newman M.D. Room: [facility] ENDOSCOPY ROOM 8 Note Status: Finalized Procedure: [...] passed under direct vision. The GIF [id number] endoscope was introducedthrough the mouth, and advanced [...] gastritis and gastroduodenitis without mention of hemorrhage Hiatal hernia Diaphragmatic hernia without mention of [...] 02/08/2024 documented in this encounter Care Teams Supervisor Composing Room Relationship Specialty Start Date End Date Parmjit Dai MD PCP - General 12/31/20 Mere Landa NP Nurse Practitioner 02/07/20 Tico Burton MD Surgeon General Surgery 08/09/21 Ivan Liang MD Consulting Physician General Surgery 09/09/23 documented as of this encounter
--- OUTSIDE RECORDS SUMMARY | 2024-08-16 04:32 | XMS_ITS | Encounter Summary ---
Author Organization [facility] Healthcare Address [address] [place] [address] Care Team Providers Care Certified Endoscopy Technician Name Role Phone Mere Landa NP Unavailable [phone] Parmjit Dai MD Primary Care Provider [phone] Tico Burton MD Unavailable [phone] Ivna Liang MD Unavailable Encounter Details Date Type Department Care Team (Late st Contact Info) Description 11/11/2023 9:20 AM CDT [address] Paresthesia of both lower extremities Social History Tobacco Use Types Packs/Day Years Used Date Smoking Tobacco: Former Cigarettes 1 4 - 1999 Vaping Smokeless Tobacco: Never Comments:off and on Alcohol Use Standard Drinks/Week Comments No 0 (1 standard drink = 0.6 oz pur e alcohol) on occasion [facility] Utilities Answer Date Recorded In the past 12 months has [employer], gas, oil, or water company threatened [...] week 09/09/2023 How often do you attend [facility] or episcopalian services? 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 Gender Identity Female 06/17/2024 7:02 AM CDT Sexual Orientation Not on file documented as of this encounter Plan of Treatment Upcoming Encounters Date Type Department Care Team (Latest Contact Info) Description 09/07/2024 8:30 AM MORTGAGE PROTECTION SPECIALIST Hospital Encounter [facility] [address] [place] [phone] Forest Catherine MD [address] [address] 09/07/2024 8:30 AM MORTGAGE PROTECTION SPECIALIST - 09/07/2024 9:00 AM MORTGAGE PROTECTION SPECIALIST Surgery [facility] [address] [place] [phone] Forest Catherine MD [address] [address] EGD w/Endo Flip & YI placement Scheduled Procedures Name Priority Associated Diagnoses Date/Ti me ESOPHAGOGASTRODUODENOSCOPY Hiatal hernia Gastroesophageal reflux disease, unspecified whether esophagitis present 09/07/2024 8:30 AM MORTGAGE PROTECTION SPECIALIST documented as of this encounter Procedures Procedure Name Priority Date/Time Associated Diagnosis Comments THYROID FUNCTION CASCADE Routine 11/11/2023 9:04 AM CDT Paresthesia of both lower extremities PROTEIN ELECTROPHORESIS, WITH REFLEX, SERUM Routine 11/11/2023 9:04 AM CDT Paresthesia of both lower extremities FOLATE Routine 11/11/2023 9:04 AM CDT Paresthesia of both lower extremities VITAMIN B12 Routine 11/11/2023 9:04 AM CDT Paresthesia of both lower extremities documented in this encounter Results * Vitamin B12 (11/11/2023 9:04 AM CDT) Pathologist [facility] Vitamin B12 1,184 230 - 1,250 pg/mL Blood 11/11/2023 9:04 AM CDT 11/11/2023 10:45 AM CDT Say Nugent MD LAB BLOOD ORDERABLES Fi nal Result Performing Organization Address City/[facility]/ZIP Co de Phone Number BREN GONZALEZ ([place]) [address] [facility] [place] [address] * Folate (11/11/2023 9:04 AM CDT) [facility] Folic acid >20.0 >=5.0 ng/mL Comment:Slightly Hemolyzed S pecimen. Results may be affected. Blood 11/11/2023 9:04 AM CDT 11/11/2023 10:45 AM CDT Say Nugent MD LAB BLOOD ORDERABLES Fi nal Result Performing Organization Address [facility] Co de Phone Number BREN GONZALE[facility] ([place]) [address] [place] [address] [place] [address] * Protein electrophoresis with reflex, serum (11/11/2023 9:04 AM CDT) [facility] Protein, sr 7.1 6.2 - 8.2 g/dL Comment:Testing performed by : [facility], [address] [place]., [address] Albumin 4.5 3.2 - 5.0 g/dL BREN GONZALEZ ([place]) Comment:Testing performed by : [facility], [address] [place]., [address] Alpha-1 globulin 0.3 0.2 - 0.4 g/dL [facility]EN [facility] ([place]) Comment:Testing performed by : [facility], [address] [place]., [address] Alpha-2 globulin 0.6 0.5 - 1.0 g/dL [facility] ([place]) Comment:Testing performed by : [facility], [address] [place]., [address] Beta-1 globulin 0.4 0.3 - 0.6 g/dL [facility] ([place]) Comment:Testing performed by : [facility], [address] [place]., [address] Beta-2 globulin 0.3 0.2 - 0.6 g/dL [facility] ([place]) Comment:Testing performed by : [facility], [address] [place]., [address] Gamma globulin 1.0 0.5 - 1.7 g/dL [facility] ([place]) Comment:Testing performed by : [facility], [address] [place] [address], [address] SPEP interp Please see comment [facility] ([place]) Comment: No apparent monoclonal peak Reviewed and signed by Marcos Wynn MD, PhD 11/12/2023 Testing performed by: [facility], [address] [place] [address]., [address] Blood 11/11/2023 9:04 AM CDT 11/11/2023 2:33 PM CDT Say Nugent MD LAB BLOOD ORDERABLES nal Result [facility] ([place]) 1 [facility] Department [place] [address] * Thyroid Function [place] (11/11/2023 9:04 AM CDT) TSH 0.93 0.30 - 4.20 mcIUnit/mL Blood 11/11/2023 9:04 AM CDT 11/11/2023 10:46 AM CDT us Say Nugent MD LAB BLOOD ORDERABLES Fi nal Result [facility]EN [facility] ([place]) 1 [facility] [place] [place] [address] documented in this encounter Visit Diagnoses Diagnosis Paresthesia of both lower extremities Hiatal hernia Diaphragmatic hernia without mention of obstruction or gangrene Gastroesophageal reflux disease, unspecified whether esophagitis present documented in this encounter Care Teams Certified Endoscopy Technician Relationship Specialty Start Date End Date Parmjit Dai MD PCP - General 12/31/20 Mere Landa NP Nurse Practitioner 02/07/20 Tico Burton MD Surgeon General Surgery 08/09/21 Ivan Liang MD Consulting Physician General Surgery 09/09/23 documented as of this encounter
--- OUTSIDE RECORDS SUMMARY | 2024-08-16 04:32 | XMS_ITS | Encounter Summary ---
Author Organization [facility] Healthcare Address [address] [place] [address] Care Team Providers Care Quality Assurance Monitor Chassis Name Role Phone Mere Landa NP Unavailable [phone] Parmjit Dai MD Primary Care Provider [phone] Tico Burton MD Unavailable [phone] Ivan Liang MD Unavailable Reason for Referral * Diagnostic Imaging (Routine) - Closed Specialty Diagnoses / Procedures Referred By Contac t Referred To Contact Diagnoses Screening mammogram, encounter for Procedures Screening Mammogram Bilateral W Bong Screening Mammogram, [address] [phone] Referral ID Status Reason Start Date Expiration Date Visits Re quested Visits Authorized [id number] Closed 09/23/2023 10/22/2024 1 1 * Diagnostic Imaging (Routine) - Closed Specialty Diagnoses / Procedures Referred By Contac t Referred To Contact Diagnoses Screening mammogram, encounter for Procedures Screening Mammogram Bilateral W Bong Screening Mammogram, [address] [phone] Referral ID Status Reason Start Date Expiration Date Visits Re quested Visits Authorized [id number] Closed 09/23/2023 10/22/2024 1 1 CTOR FUNDS DEVELOPMENT Reason for Visit * Diagnostic Imaging (Routine) - Closed Specialty Diagnoses / Procedures Referred By Loreta t Referred To Contact Diagnoses Screening mammogram, encounter for Procedures Screening Mammogram Bilateral W Bong Screening Mammogram, Self [facility] [address] [place] [address] Referral ID Status Reason Start Date Expiration Date Visits Re quested Visits Authorized [id number] Closed 09/23/2023 10/22/2024 1 1 Encounter Details Date Type Department Care Team (Latest Contact Info) Description 11/11/2023 8:41 AM CDT - 11/11/2023 11:59 PM CDT Hospital Encounter [facility] [address] [place] [address] Screening mammogram, encounter for Discharge Disposition: Discharge to home or self care Social History Tobacco Use Types Packs/Day Years Used Date Smoking Tobacco: Former Cigarettes 1 1999 Vaping Smokeless Tobacco: Never Comments:off and on Alcohol Use Standard Drinks/Week Comments No 0 (1 standard drink = 0.6 oz pur e alcohol) on occasion [facility] Utilities Answer Date Recorded In the past 12 months has [employer], gas, oil, or water [employer] threatened to shut off services in your [...] How often do you attend chur or episcopalian services? 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 Gender Identity Female 06/17/2024 7:02 AM CDT Sexual Orientation Not on file documented as of this encounter Medications at Time of Discharge albuterol HFA (PROVENTIL HFA,VENTOLIN HFA,PROAIR HFA) 90 mcg/actuation inhaler 2 puffs every 4 (four) hours as needed 04/03/2023 apixaban (ELIQUIS) 5 mg tablet Take 1 tablet (5 mg total) by mouth 2 (two) times a day atorvastatin (LIPITOR) 40 mg tabletIndication s:hyperlipidemia Take 1 tablet (40 mg total) by mouth daily 30 tablet 1 08/13/2021 dicyclomine (BENTYL) 20 mg tablet Take 1 [...] tablet (25 mg total) by mouth daily baclofen (LIORESAL) 10 mg tablet Take 1/2-1 pill t.i.d. Take 10-15 minutes before eating to help with the esophageal spasms. 90 tablet 3 08/06/2023 4 colestipoL (COLESTID) 1 gram tablet Take two tablets up to twice daily for problematic diarrhea. Hold if get constipated. Take all other medications at least 1 hour before or 4 hours after you take colestipol because it can interfere with their absorption. 120 tablet 1 11/06/2023 4 lactulose solution 10 gram/15mL Take 15-30 mls 1-2 times daily as needed for problematic constipation. 473 mL 2 09/24/2023 4 lubiprostone (AMITIZA) 24 mcg capsule Take 1 capsule (24 mcg total) by mouth 2 (two) times a day with meals 180 capsule 3 04/17/2023 4 nortriptyline (PAMELOR) 25 mg capsule Take 1 capsule (25 mg total) by mouth nightly 90 capsule 3 04/17/2023 4 ondansetron (ZOFRAN) 8 mg tablet Take 0.5-1 tablets (4-8 mg total) by mouth every 6 (six) hours as needed for nausea or vomiting 20 tablet 3 10/08/[address] (PROTONIX) 40 mg EC tablet Take 1 tablet (40 mg total) by mouth daily 90 tablet 3 04/17/2023 4 sucralfate (CARAFATE) 1 gram tabletIndication s:Gastritis. Take one pill 3-4 times daily for the next two weeks. 56 tablet 10/07/2023 4 SUMAtriptan (IMITREX) 50 mg tabletIndication s:Migraine Take 1 tablet (50 mg total) by mouth once as needed for migraine May repeat dose once in 2 hours if no relief. Do not exceed 2 doses in 24 hours. 4 documented as of this encounter Discharge Disposition Disposition Code Departure Means Destination Discharge to home or self care documented in this encounter Plan of Treatment Upcoming Encounters Date Type Department Care Team (Latest Contact Info) Description 09/07/2024 8:30 AM [facility] Hospital Encounter [facility] [address] [place] [phone] Forest Catherine MD [address] [address] 09/07/2024 8:30 AM DIRECTOR FUNDS DEVELOPMENT - 09/07/2024 9:00 AM [facility] Surgery [facility] [address] [place] [phone] Forest Catherine MD [address] [address] EGD w/Endo Flip & YI placement Scheduled Procedures Name Priority Associated Diagnoses Date/Ti me ESOPHAGOGASTRODUODENOSCOPY Hiatal hernia Gastroesophageal reflux disease, unspecified whether esophagitis present 09/07/2024 8:30 AM DIRECTOR FUNDS DEVELOPMENT documented as of this encounter Procedures Procedure Name Priority Date/Time Associated Diagnosis Comments SCREENING MAMMOGRAM BILATERAL W BONG Schedule Routine, Read Routine (OP Routine) 11/11/2023 8:54 AM CDT Screening mammogram, encounter for documented in this encounter Results * Screening Mammogram Bilateral W Bong (11/11/2023 [...] Mammogram IMG MAMMO PROCEDURES Fi nal Result documented in this encounter Visit Diagnoses Diagnosis Screening mammogram, encounter for Hiatal hernia Diaphragmatic hernia without mention of obstruction or gangrene Gastroesophageal reflux disease, unspecified whether esophagitis present documented in this encounter Care Teams Quality Assurance Monitor Chassis Relationship Specialty Start Date End Date Parmjit Dai MD PCP - General 12/31/20 Mere Landa NP Nurse Practitioner 02/07/20 Tico Burton MD Surgeon General Surgery 08/09/21 Ivan Liang MD Consulting Physician General Surgery 09/09/23 documented as of this encounter
--- OUTSIDE RECORDS SUMMARY | 2024-08-16 04:32 | XMS_ITS | Encounter Summary ---
Author Organization [facility] Healthcare Address [address] [place] [address] Care Team Providers Care Creative Manager Name Role Phone Mere Landa NP Unavailable [phone] Parmjit Dai MD Primary Care Provider [phone] Tico Burton MD Unavailable [phone] Ivan Liang MD Unavailable Reason for Referral * Neurology (Routine) - Authorized Specialty Diagnoses / Procedures Referred By Contgonzalo t Referred To Contact Diagnoses Paresthesia of both lower extremities Procedures EMG/NCV - Say Nugent MD [address] [place] [address] [address] [place] [address] Phone: tel: fax: [address] [phone] Referral ID Status Reason Start Date Expiration Date V isits Requested Visits Authorized [id number] Authorized 10/28/2023 11/26/2024 1 1 EMENTATION ENGINEER Reason for Visit * Reason Comments Numbness Numbness and burning of lower extremities - difficulty walking Encounter Details Date Type Department Care Team (Late st Contact Info) Description 10/28/2023 2:30 PM IMPLEMENTATION ENGINEER Office Visit [facility] [address] [facility] [address] [place] [address] Say Nugent MD [address] [facility] [place] [address] Paresthesia of both lower extremities (Primary Dx) Social History Tobacco Use Types Packs/Day Years Used Date Smoking Tobacco: Former Cigarettes 1 4 - 1999 Vaping Smokeless Tobacco: Never Tobacco Cessation:Counseling Given: Not Answered Comments:off and on Alcohol Use Standard Drinks/Week Comments No 0 (1 standard drink = 0.6 oz pur e alcohol) on occasion [facility] Utilities Answer Date Recorded In the past 12 months has e electric, gas, oil, or water company [...] often do you attend chur ch or yarsanism services? Never 09/09/2023 Do you belong to any clubs o r organizations such as adventism groups, unions, fraternal or athletic groups, or [...] on file Legal Sex Female 10:06 AM IMPLEMENTATION ENGINEER Gender Identity Female 06/17/2024 7:02 AM CDT Sexual Orientation Not on file documented as of this encounter Last Filed Vital Signs Vital Sign Reading Time Taken Comments Blood Pressure 101/70 10/28/2023 2:27 PM IMPLEMENTATION ENGINEER Pulse 58 10/28/2023 2:27 PM IMPLEMENTATION ENGINEER Temperature - - Respiratory Rate - - Oxygen Saturation 94% 10/28/2023 2:27 PM IMPLEMENTATION ENGINEER Inhaled Oxygen Concentration - - Weight 56.7 kg (125 lb) 10/28/2023 2:27 PM IMPLEMENTATION ENGINEER Height 162.6 cm (5' 4 ) 10/28/2023 2:27 PM IMPLEMENTATION ENGINEER Body Mass Index 21.46 10/28/2023 2:27 PM IMPLEMENTATION ENGINEER documented in this encounter Progress Notes * Say Nugent MD - 10/28/2023 2:30 PM CST Subjective/Objective Patient ID: Sarahy Gill is a 53 y.o. female. Chief Complaint Tingling, numbness and weakness of lower extremities HPI She had a ER visit on 09/19/2023 for tingling and numbness of lower extremities, as well as weaknesslower extremities. They were tired. This has been going on for one months ago. It started suddenly from both feet up to hips. Over the time, it is the same. Past Medical History: Diagnosis Date A-fib ([facility]) ([facility]) Anemia Anxiety Arthritis Bipolar affect, depressed ([facility]) Chronic nausea 09/24/2021 Colon polyp Cyclic vomiting syndrome Depression Headache, tension-type Hypertension Hypotension IBS (irritable bowel syndrome) Migraine Nausea and vomiting, unspecified vomiting type 12/18/2021 Stroke ([facility]) TIA Weight loss Allergies Allergen Reactions Compazine [Prochlorperazine] Other (See comments) made me feel weird, odd also agitation Phenergan [Promethazine] Agitation Reglan [Metoclopramide] Other (See comments) Had TIA after trying. Zithromax [Azithromycin] Stomach upset Current Outpatient Medications Medication Sig Dispense Refill albuterol HFA (PROVENTIL HFA,VENTOLIN HFA,PROAIR HFA) 90 mcg/actuation inhaler 2 puffs every 4 (four) hours as needed apixaban (ELIQUIS) 5 mg tablet Take 1 tablet (5 mg total) by mouth 2 (two) times a day baclofen (LIORESAL) 10 mg tablet Take 1/2-1 pill t.i.d. Take 10-15 minutes before eating to help with the esophageal spasms. 90 tablet 3 dicyclomine (BENTYL) 20 mg tablet Take 1 [...] MOUTH TWICE DAILY. START TAKING SATURDAY 07/07 lactulose solution 10 gram/15mL Take 15-30 mls 1-2 times daily as needed for problematic constipation. 473 mL 2 lubiprostone (AMITIZA) 24 mcg capsule Take 1 capsule (24 mcg total) by mouth 2 (two) times a day with meals 180 capsule 3 metoprolol XL (TOPROL-XL) 25 mg extended release tablet Take 1 tablet (25 mg total) by mouth daily nortriptyline (PAMELOR) 25 mg capsule Take 1 capsule (25 mg total) by mouth nightly 90 capsule 3 ondansetron (ZOFRAN) 8 mg tablet Take 0.5-1 tablets (4-8 mg total) by mouth every 6 (six) hours as needed for nausea or vomiting [address] (PROTONIX) 40 mg EC tablet Take 1 tablet (40 mg total) by mouth daily 90 tablet 3 sucralfate (CARAFATE) 1 gram tablet Take one pill 3-4 times daily for the next two weeks. 56 tablet0 SUMAtriptan (IMITREX) 50 mg tablet Take 1 tablet (50 mg total) by mouth once as needed for migraineMay repeat dose once in 2 hours if no relief. Do not exceed 2 doses in 24 hours. atorvastatin (LIPITOR) 40 mg tablet Take 1 tablet (40 mg total) by mouth daily 30 tablet 1 No current facility-administered medications for this visit. has a current medication list which includes the following prescription(s): albuterol hfa, apixaban, baclofen, dicyclomine, docusate sodium, famotidine, flecainide, lactulose, lubiprostone, metoprolol xl, nortriptyline, ondansetron, pantoprazole dr, sucralfate, sumatriptan, and atorvastatin. Family History Problem Relation Age of Onset Esophageal cancer Maternal Grandmother Heart disease Maternal Grandmother Stroke Maternal Grandmother Hypertension Maternal Grandmother Migraines Mother Social History Socioeconomic History Marital status: Spouse name: Not on file Number of children: Not on file Years of education: Not on file Highest education level: Not on file Occupational History Not on file Tobacco Use Smoking status: Former Smoker Start date: 1983 Quit date: 2000 Years since quittin.0 Smokeless tobacco: Never Used Tobacco comment: off and on Vaping Use Vaping Use: Every day Substance and Sexual Activity Alcohol use: No Comment: on occasion Drug use: Yes Types: Marijuana Comment: occasionally Sexual activity: Defer control/protection: Post-menopausal Other Topics Concern Not on file Social History Narrative Not on file Social Determinants of Health Financial Resource Strain: Not on file Food Insecurity: Not on file Transportation Needs: Not on file Physical Activity: Not on file Stress: Not on file Social Connections: Not on file Intimate Partner Violence: Not on file Housing Stability: Not on file BP 101/70 (BP Location: Left arm, Patient Position: Sitting) Pulse 58 Ht 162.6 cm (5' 4 ) Wt 56.7 kg (125 lb) SpO2 94% BMI 21.46 kg/m?? Physical Exam Mental status: alert, speech fluent, comprehension intact, follow command appropriately Cranial nerve: JOSEF, corneal reflex present. EOMI, VFF by confrontation method. Facial sensations symmetrical. Face symmetrical. shoulder shrug symmetrical b/l. tongue midline. Motor: bulk normal, tone normal, pronator drift negative. Strength 5/5. No abnormal movement. Sensation: LT Normal and symmetrical. Gait: normal Assessment/Plan I am seeing this 53 y.o. female who is here for tingling and numbness of lower extremities. Diagnoses and all orders for this visit: Paresthesia of both lower extremities 1. NCV/EMG of bilateral lower extremity 2. Folic acid, vitamin B12, TSH with T4 reflex and SPEP Past investigations: 1. 08/12/2021 MRI of the brain without: No acute intracranial process. 2. 08/12/2021 carotid ultrasound: No high-degree stenosis. 3. 08/16/2021 EKG: Sinus rhythm. HR 69. 4. 08/12/2021 echocardiogram: 60-70%. No mural thrombosis or valvular vegetation. 5. 08/12/2021 cholesterol 192, triglyceride 70, HDL 55, LDL 123. Return in about 2 months (around 12/27/2023). EMENTATION ENGINEER documented in this encounter Miscellaneous Notes * Addendum Note - Lauren Finch CLT - 10/28/2023 2:30 PM CSTAddended by: LAUREN FINCH on: 11/11/2023 09:04 AM Modules accepted: Orders documented in this encounter Plan of Treatment Upcoming Encounters Date Type Department Care Team (Latest Contact Info) Description 09/07/2024 8:30 AM IMPLEMENTATION ENGINEER Hospital Encounter [facility] [address] [place] [phone] Forest Catherine MD [address] [place] [phone] 09/07/2024 8:30 AM IMPLEMENTATION ENGINEER - 09/07/2024 9:00 AM IMPLEMENTATION ENGINEER Surgery [facility] [address] [place] [phone] Forest Catherine MD [address] [place] [id number] EGD w/Endo Flip & YI placement Scheduled Orders Name Type Priority Associated Diagnoses Orde r Schedule EMG/NCV - Neurology Routine Paresthesia of both lower extremities 1 Occurrences starting 10/28/2023 until 10/28/2024 Scheduled Procedures Name Priority Associated Diagnoses Date/Ti me ESOPHAGOGASTRODUODENOSCOPY Hiatal hernia Gastroesophageal reflux disease, unspecified whether esophagitis present 09/07/2024 8:30 AM IMPLEMENTATION ENGINEER documented as of this encounter Results * Thyroid Function Hunt (11/11/2023 9:04 AM CDT) TSH 0.93 0.30 - 4.20 mcIUnit/mL Blood 11/11/2023 9:04 AM CDT 11/11/2023 10:46 AM CDT us Say Nugent MD LAB BLOOD ORDERABLES Fi nal Result [facility] ([place]) [address] [facility] [place] [address] * Protein electrophoresis with reflex, serum (11/11/2023 9:04 AM CDT) [facility] Protein, sr 7.1 6.2 - 8.2 g/dL Comment:Testing performed by : [facility], [address] [place]., [address] Albumin 4.5 3.2 - 5.0 g/dL [facility] ([place]) Comment:Testing performed by : [facility], [address] [place] [address], [id number] Alpha-1 globulin 0.3 0.2 - 0.4 g/dL [facility] ([place]) Comment:Testing performed by : [facility], [address] [place] [address], [id number] Alpha-2 globulin 0.6 0.5 - 1.0 g/dL [facility] ([place]) Comment:Testing performed by : [facility], [address] [place] [address], [id number] Beta-1 globulin 0.4 0.3 - 0.6 g/dL [facility] ([place]) Comment:Testing performed by : [facility], [address] [place] [address], [id number] Beta-2 globulin 0.3 0.2 - 0.6 g/dL [facility] ([place]) Comment:Testing performed by : [facility], [address] [place] [address], [id number] Gamma globulin 1.0 0.5 - 1.7 g/dL [facility] ([place]) Comment:Testing performed by : [facility], [address] [place] [address], [id number] SPEP interp Please see comment [facility] ([place]) Comment: No apparent monoclonal peak Reviewed and signed by Marcos Wynn MD, PhD 11/12/2023 Testing performed by: [facility], [address] [place] [address], [id number] Blood 11/11/2023 9:04 AM CDT 11/11/2023 2:33 PM CDT us Say Nugent MD LAB BLOOD ORDERABLES Fi nal Result Performing Organization Address City/[facility]/ZIP Co de Phone Number [facility] ([place]) [address] [facility] [place] [address] * Folate (11/11/2023 9:04 AM CDT) Folic acid >20.0 >=5.0 ng/mL Comment:Slightly Hemolyzed S pecimen. Results may be affected. Blood 11/11/2023 9:04 AM CDT 11/11/2023 10:45 AM CDT Say Nugent MD LAB BLOOD ORDERABLES Fi nal Result Performing Organization Address [facility] Co de Phone Number [facility] ([place]) [address] [facility] [place] [address] * Vitamin B12 (11/11/2023 9:04 AM CDT) Vitamin B12 1,184 230 - 1,250 pg/mL Blood 11/11/2023 9:04 AM CDT 11/11/2023 10:45 AM CDT Say Nugent MD LAB BLOOD ORDERABLES Fi nal Result Performing Organization Address [facility] Co de Phone Number [facility] ([place]) 1 [facility] [address] documented in this encounter Visit Diagnoses Diagnosis Paresthesia of both lower extremities- Primary Hiatal hernia Diaphragmatic hernia without mention of obstruction or gangrene Gastroesophageal reflux disease, unspecified whether esophagitis present documented in this encounter Care Teams Creative Manager Relationship Specialty Start Date End Date Parmjit Dai MD PCP - General 12/31/20 Mere Landa NP Nurse Practitioner 02/07/20 Tico Burton MD Surgeon General Surgery 08/09/21 Ivan Liang MD Consulting Physician General Surgery 09/09/23 documented as of this encounter
--- OUTSIDE RECORDS SUMMARY | 2024-08-16 04:32 | XMS_ITS | Encounter Summary ---
Author Organization [facility] Address [address] [place] [address] Phone Care Team Providers Care Oncology Registrar Name Role Phone Mere Landa NP Unavailable [phone] Parmjit Dai MD Primary Care Provider [phone] Tico Burton MD Unavailable [phone] Ivan Liang MD Unavailable Reason for Referral * Gastroenterology (Routine) - Closed Specialty Diagnoses / Procedures Referred By Loreta ledbetter Referred To Contact Diagnoses Gastroesophageal reflux disease with esophagitis without hemorrhage History of repair of hiatal hernia Esophageal dysmotility Procedures High resolution esophageal motility (manometry) - Rose Negron MD [address] [place] [address] Phone: tel: fax: [facility] (All Locations) Referral ID Status Reason Start Date Expiration Date Visits Re quested Visits Authorized [id number] Closed 11/13/2023 12/12/2024 1 1 Reason for Visit * Consultation (Urgent) - Authorized Specialty Diagnoses / Procedures Referred By Loreta ledbetter Referred To Contact Gastroenterology Diagnoses Irritable bowel syndrome with both constipation and diarrhea Chronic nausea Gastroesophageal reflux disease with esophagitis without hemorrhage Small intestinal bacterial overgrowth (SIBO) Chronic superficial gastritis without bleeding History of repair of hiatal hernia Esophageal dysmotility Richard Bowman NP [address] [place] [address] Phone: tel: fax: [facility] (All Locations) Referral ID Status Reason Start Date Expiration Date Visits Requested Visits Authorized [id number] Authorized Specialty Services Required 10/09/2023 11/07/2024 10 10 Encounter Details Date Type Department Care Team (Late st Contact Info) Description 11/13/2023 9:00 AM CDT Office Visit [facility] Gastroenterology [address] 12th [place] [address] [place] [address] Rose Negron MD [address] [place] [address] Irritable bowel syndrome with both constipation and diarrhea; Chronic nausea; Gastroesophageal reflux disease with esophagitis without hemorrhage; Small intestinal bacterial overgrowth (SIBO); Chronic superficial gastritis without bleeding; History of repair of hiatal hernia; Esophageal dysmotility Social History Tobacco Use Types Packs/Day Years Used Date Smoking Tobacco: Former Cigarettes 1999 Vaping Smokeless Tobacco: Never Tobacco Cessation:Counseling Given: Not Answered Comments:off and on Alcohol Use Standard Drinks/Week Comments No 0 (1 standard drink = 0.6 oz pur e alcohol) on occasion [facility] Utilities Answer Date Recorded In the past 12 months has [employer], [employer], or water [employer] threatened to shut off services in your [...] How often do you attend chur or worship services? Never 09/09/2023 Do you belong to any clubs o r organizations such as buddhism groups, unions, fraternal or athletic groups, or [...] place to sleep or slept in a alf (including now)? No 09/09/2023 Personal Safety Answer Date Recorded Have you ever been in or are you currently in a harmful physical or emotional relationship or is someone making you feel afraid or unsafe? Denies 10/07/2023 Comments No Sex and Gender Information Value Date Recorded Sex Assigned at Not on file Legal Sex Female 10:06 AM ENTERPRISE SOFTWARE DEVELOPER Gender Identity Female 06/17/2024 7:02 AM CDT Sexual Orientation Not on file documented as of this encounter Last Filed Vital Signs Vital Sign Reading Time Taken Comments Blood Pressure 96/66 11/13/2023 8:59 AM CDT Pulse 51 11/13/2023 8:59 AM CDT Temperature 36.7 ??C (98 ??F) 11/13/2023 8:59 AM CDT Respiratory Rate - - Oxygen Saturation - - Inhaled Oxygen Concentration - - Weight 56.3 kg (124 lb 3.2 oz) 11/13/2023 8:59 A M CDT Height 162.6 cm (5' 4 ) 11/13/2023 8:59 AM CDT Body Mass Index 21.32 11/13/2023 8:59 AM CDT documented in this encounter Ordered Prescriptions Prescription Sig Dispense Quantity Refills Last Filled Start Date End Date pantoprazole DR (PROTONIX) 40 mg EC tablet Take 1 tablet (40 mg total) by mouth 2 (two) times a day before breakfast and dinner 120 tablet 11/13/2023 4 prucalopride (MOTEGRITY) 2 mg tablet Take 1 tablet (2 mg total) by mouth daily 30 tablet 1 11/13/2023 4 busPIRone (BUSPAR) 5 mg tabletIndications: Generalized Anxiety Disorder Take 1 tablet (5 mg total) by mouth 3 (three) times a day 90 tablet 1 11/13/2023 4 documented in this encounter Progress Notes * Rose Negron MD - 11/13/2023 9:00 AM CDT Images from the original note were not included. [facility] DIV[facility] OF GASTROENTEROLOGY Clinic Address: [address] [place] [address], [address] , [place] [address] [facility] [address] [place] [address] [place] [address] Consult Note NAME: Sarahy Gill : 1970 DOS: 11/13/2023 Reason for referral: abdominal pain, nausea and emesis, diarrhea and constipation Consult requested by: Richard Bowman* Primary Care Physician: Parmjit Dai MD Subjective Chief complaint: abdominal pain, nausea and emesis, diarrhea and constipation HPI Ms. Gill is a 53 y.o. female with history ofIBS- mixed, afib on Eliquis, migraines, who presents , presents with a long-standing history of gastrointestinal issues. The patient describes an inconsistency in bowel movements, alternating between diarrhea and constipation. The patient also experiences bloating and a sensation of fullness, which she believes contributes to her nausea and abdominal pain. These symptoms have been ongoing for approximately 10-15 years, with the patient noting a possible increase in severity following cholecystectomy. The patient describes the abdominal fullness as intermittent, with periods of a few good days where she can eat without discomfort, followed by days where she wakes up feeling unable to eat due to nausea and cramping. The cramping is localized to the lower abdomen, while the pain is felt in the upper abdomen. These symptoms are typically noticed after meals and in the evenings. The patient also reports issues with swallowing, with food often getting stuck in her chest. This has led to instances of choking. The patient is currently taking baclofen to manage this issue, has not noted any significant improvement. The patient has a history of blood in the stool, with the most recent occurrence being the morning of the consultation. The patient also reports a history of constipation, with the sensation of stool getting stuck in the rectum. In some instances, the patient has had to manually remove the stool. The patient has a history ofatrial fibrillation and is currently on Apixaban. The patient also has a history of a large perineal tear from childbirth. She had a hiatal hernia repair at [facility], possibly in 2012, cholecystectomy and recent appendectomy for appendicitis. She feels that her symptoms have improved somewhat after her appendectomy Patient Active Problem List Diagnosis Irritable bowel syndrome with both constipation and diarrhea Essential tremor Jerky body movements Orthostatic dizziness Hypertension Atrial fibrillation (CMS/HCC) (HCC) Palpitations Migraine headache Abdominal pain, generalized Cyclic vomiting syndrome Bipolar affect, depressed (HCC) Intussusception intestine (CMS/HCC) (HCC) TIA (transient ischemic attack) Dysuria Hypokalemia Periumbilical abdominal pain Irritable bowel syndrome with both constipation and diarrhea Chronic nausea History of repair of hiatal hernia Gastroesophageal reflux disease without esophagitis Hepatic steatosis History of colonoscopy with polypectomy Nausea and vomiting Marijuana use Nausea and vomiting, unspecified vomiting type Chronic superficial gastritis without bleeding Chronic anemia Gastroesophageal reflux disease with esophagitis without hemorrhage Cyclical vomiting Gastritis Colitis Abdominal pain Dyspepsia Appendix disease Chronic abdominal pain Iron deficiency anemia Severe protein-calorie malnutrition (CMS/HCC) (HCC) Slow transit constipation Small intestinal bacterial overgrowth (SIBO) Tubular adenoma of colon Paresthesia of both lower extremities Past Medical History: Diagnosis Date A-fib (CMS/HCC) (HCC) Anemia Anxiety Arthritis Bipolar affect, depressed (HCC) Chronic nausea 09/24/2021 Colon polyp Cyclic vomiting syndrome Depression Headache, tension-type Hypertension Hypotension IBS (irritable bowel syndrome) Migraine Nausea and vomiting, unspecified vomiting type 12/18/2021 Stroke (HCC) TIA Weight loss Past Surgical History: Procedure Laterality Date ABDOMINAL SURGERY 2012 hiatel hernia repair ARTHROSCOPIC SURGERY Left 1984,1994,2001 knee SECTION 1992 CHOLECYSTECTOMY COLONOSCOPY 1-2yrs ago COLONOSCOPY 10/29/2022 ENDOMETRIAL ABLATION HERNIA REPAIR POLYPECTOMY TUBAL LIGATION Current Outpatient Medications: apixaban (ELIQUIS) 5 mg tablet, Take 1 tablet (5 mg total) by mouth 2 (two) times a day, Disp: , Rfl: atorvastatin (LIPITOR) 40 mg tablet, Take 1 tablet (40 mg total) by mouth daily, Disp: , Rfl: dicyclomine (BENTYL) 20 mg tablet, Take 1 tablet (20 mg total) by mouth 4 (four) times a day as needed (abdominal pain/cramping), Disp: 360 capsule, Rfl: 3 famotidine (PEPCID) 20 mg tablet, Take 1 tablet (20 mg total) by mouth daily as needed for indigestion or heartburn, Disp: 180 tablet, Rfl: 3 flecainide (TAMBOCOR) 100 mg tablet, TAKE 1 TABLET BY MOUTH TWICE DAILY. START TAKING SATURDAY 07/07, Disp: , Rfl: meclizine (ANTIVERT) 12.5 mg tablet, Take 1 tablet (12.5 mg total) by mouth 3 (three) times a day as needed, Disp: , Rfl: metoprolol XL (TOPROL-XL) 25 mg extended release tablet, Take 1 tablet (25 mg total) by mouth daily, Disp: , Rfl: ondansetron (ZOFRAN) 8 mg tablet, Take 0.5-1 tablets (4-8 mg total) by mouth every 6 (six) hours asneeded for nausea or vomiting, Disp: 20 tablet, Rfl: 3 albuterol HFA (PROVENTIL HFA,VENTOLIN HFA,PROAIR HFA) 90 mcg/actuation inhaler, 2 puffs every 4 (four) hours as needed (Patient not taking: Reported on 11/13/2023), Disp: , Rfl: atorvastatin (LIPITOR) 40 mg tablet, Take 1 tablet (40 mg total) by mouth daily, Disp: 30 tablet, Rfl: 1 busPIRone (BUSPAR) 5 mg tablet, Take 1 tablet (5 mg total) by mouth 3 (three) times a day, Disp: 90tablet, Rfl: 1 docusate sodium (COLACE) 100 mg capsule, Take 2 capsules (200 mg total) by mouth nightly, Disp: , Rfl: pantoprazole DR (PROTONIX) 40 mg EC tablet, Take 1 tablet (40 mg total) by mouth 2 (two) times a day before breakfast and dinner, Disp: 120 tablet, Rfl: 0 prucalopride (MOTEGRITY) 2 mg tablet, Take 1 tablet (2 mg total) by mouth daily, Disp: 30 tablet, Rfl: 1 Allergies Allergen Reactions Metoclopramide Other (See comments) Had TIA after trying. Doesn't like the way it makes her body feel. Phenergan [Promethazine] Agitation Prochlorperazine Other (See comments) and Unknown made me feel weird, odd also agitation Zithromax [Azithromycin] Stomach upset Family History Problem Relation Age of Onset Esophageal cancer Maternal Grandmother Heart disease Maternal Grandmother Stroke Maternal Grandmother Hypertension Maternal Grandmother Migraines Mother Social History Tobacco Use Smoking status: Former Current packs/day: 0.00 Types: Vaping, Cigarettes Start date: 1983 Quit date: 1999 Years since quittin.2 Smokeless tobacco: Never Tobacco comments: off and on Substance and Sexual Activity Drug use: Yes Types: Marijuana Comment: occasionally last used 1-24 Sexual activity: Defer control/protection: Post-menopausal Alcohol Use: Not At Risk (09/24/2023) AUDIT-C Frequency of Alcohol Consumption: Never Average Number of Drinks: Patient does not drink Frequency of Binge Drinking: Not on file ROS As outlined in HPI. All other systems negative. Objective Vital Signs BP 96/66 Pulse 51 Temp 36.7 ??C (98 ??F) Ht 162.6 cm (5' 4 ) Wt 56.3 kg (124 lb 3.2 oz) BMI 21.32 kg/m?? Physical Exam GENERAL: Well-appearing, in no acute distress. HEENT: NC/AT/JOSEF NECK: Supple without lymphadenopathy. LUNGS: Clear to auscultation bilaterally. CARDIOVASCULAR: Regular rate and rhythm with no murmur. ABDOMEN: soft, non-tender; bowel sounds normal; no masses, no organomegaly EXTREMITIES: No clubbing, cyanosis or edema SKIN: No rash or jaundice. NEUROLOGIC: Grossly nonfocal on simple observation with normal insight, memory, affect, and orientation, and no focal weakness evident Results: Labs Lab Results Component Value Date WBC 5.7 10/07/2023 HGB 12.1 10/07/2023 HCT 38.0 10/07/2023 MCV 89.6 10/07/2023 LABPLAT 286 10/07/2023 Lab Results Component Value Date SODIUM 143 10/07/2023 POTASSIUM 3.8 10/07/2023 CHLORIDE 104 10/07/2023 CO2 26 10/07/2023 BUNSER 8 10/07/2023 CREATININE 0.89 10/07/2023 GLUCOSE 100 10/07/2023 CALCIUM 9.8 10/07/2023 Lab Results Component Value Date PROT 7.6 10/07/2023 ALBUMIN 4.7 10/07/2023 BILITOT 0.4 10/07/2023 ALKPHOS 106 10/07/2023 AST 35 10/07/2023 ALT 38 10/07/[address] CAP 10/24 IMPRESSION: No evidence of [...] at GE junction performed up to 52 [place] . Diagnosis: A. Gastric polyp, biopsy: - [...] Colonic mucosa with no significant histopathologic abnormalities. Assessment/Plan Constipation and dysphagia, with chronic nausea: Longstanding history of inconsistent bowel movements, alternating between diarrhea and constipation, with associated abdominal pain and bloating. History of hiatal hernia repair and cholecystectomy. Current symptoms suggestive of potential pelvic floor dysfunction and possible issues with gastric accommodation. -Order anorectal manometry to assess pelvic floor function. -Order esophageal manometry to assess esophageal motility post-hiatal hernia repair. -Start Buspirone 5mg TID . -Start Motegrity for constipation. -Increase Protonix to twice daily. -Discontinue Baclofen and nortriptyline -Continue Dicyclamine as needed for cramping. -Follow-up in 10 weeks. Atrial Fibrillation: On anticoagulation therapy. -Continue current management. Orders Orders Placed This Encounter Procedures High resolution esophageal motility (manometry) - Standing Status: Future Standing Expiration Date: 11/12/2024 Order Specific Question: Where should this order be performed? Answer: [facility] (All Locations) [167] High Resolution Anorectal Motility (Rectal Sensation/Tone) with Balloon Expulsion - Standing Status: Future Standing Expiration Date: 11/12/2024 Order Specific Question: Where should this order be performed? Answer: [facility] [[id number]] Return to clinic in 10 weeks Rose Negron MD Railroad Car Inspectoroverlock sleeve setter [place] [address] [place] [address] fish hatchery assistant Academic office documented in this encounter Plan of Treatment Upcoming Encounters Date Type Department Care Team (Latest Contact Info) Description 09/07/2024 8:30 AM ENTERPRISE SOFTWARE DEVELOPER Hospital Encounter [facility] [address] [place] [phone] Forest Catherine MD [address] [address] 09/07/2024 8:30 AM ENTERPRISE SOFTWARE DEVELOPER - 09/07/2024 9:00 AM ENTERPRISE SOFTWARE DEVELOPER Surgery [facility] [address] [place] [phone] Forest Catherine MD [address] [id number] EGD w/Endo Flip & YI placement Scheduled Procedures Name Priority Associated Diagnoses Date/Ti me ESOPHAGOGASTRODUODENOSCOPY Hiatal hernia Gastroesophageal reflux disease, unspecified whether esophagitis present 09/07/2024 8:30 AM ENTERPRISE SOFTWARE DEVELOPER documented as of this encounter Results * High resolution esophageal motility (manometry) - (02/08/2024) Anatomical Region Laterality Modality Other us Rose Negron MD GI LAB PROCEDURE ORDERABLES Fi nal Result documented in this encounter Visit Diagnoses Diagnosis Irritable bowel syndrome with both constipation and diarrhea Chronic nausea Nausea alone Gastroesophageal reflux disease with esophagitis without hemorrhage Small intestinal bacterial overgrowth (SIBO) Chronic superficial gastritis without bleeding History of repair of hiatal hernia Esophageal dysmotility Dyskinesia of esophagus Hiatal hernia Diaphragmatic hernia without mention of obstruction or gangrene Gastroesophageal reflux disease, unspecified whether esophagitis present documented in this encounter Discontinued Medications Medication Sig Discontinue Reason Start Date End Da te baclofen (LIORESAL) 10 mg tablet Take 1/2-1 pill t.i.d. Take 10-15 minutes before eating to help with the esophageal spasms. 08/06/2023 11/13/2023 colestipoL (COLESTID) 1 gram tablet Take two tablets up to twice daily for problematic diarrhea. Hold if get constipated. Take all other medications at least 1 hour before or 4 hours after you take colestipol because it can interfere with their absorption. 11/06/2023 11/13/2023 lactulose solution 10 gram/15mL Take 15-30 mls 1-2 times daily as needed for problematic constipation. 09/24/2023 11/13/2023 nortriptyline (PAMELOR) 25 mg capsule Take 1 capsule (25 mg total) by mouth nightly 04/17/2023 11/13/2023 sucralfate (CARAFATE) 1 gram tabletIndications:Bg ritis. Take one pill 3-4 times daily for the next two weeks. 10/07/2023 11/13/2023 lubiprostone (AMITIZA) 24 mcg capsule Take 1 capsule (24 mcg total) by mouth 2 (two) times a day with meals 04/17/2023 11/13/2023 SUMAtriptan (IMITREX) 50 mg tabletIndications:Migr angie Take 1 tablet (50 mg total) by mouth once as needed for migraine May repeat dose once in 2 hours if no relief. Do not exceed 2 doses in 24 hours. 11/13/[address] (PROTONIX) 40 mg EC tablet Take 1 tablet (40 mg total) by mouth daily 04/17/2023 11/13/2023 documented as of this encounter Historical Medications * This list may reflect changes made after this encounter. meclizine (ANTIVERT) 12.5 mg tablet Take 1 tablet (12.5 mg total) by mouth 3 (three) times a day as needed 10/16/2023 atorvastatin (LIPITOR) 40 mg tablet Take 1 tablet (40 mg total) by mouth daily 11/24/2023 added in this encounter Orders Outpatient Referral Count Last Ordered Date Fir st Ordered Date AMB REFERRAL TO GASTROENTEROLOGY 1 11/13/19 documented in this encounter Care Teams Oncology Registrar Relationship Specialty Start Date End Date Parmjit Dai MD PCP - General 12/31/20 Mere Landa V. FOLLOW UP REP Nurse Practitioner 02/07/20 Tico Burton MD Surgeon General Surgery 08/09/21 Ivan Liang MD Consulting Physician General Surgery 09/09/23 documented as of this encounter
--- OUTSIDE RECORDS SUMMARY | 2024-08-16 04:32 | XMS_ITS | Encounter Summary ---
Author Organization [facility] Address [address] [place] [address] Care Team Providers Care Swimming Pool Servicer Name Role Phone Mere Landa NP Unavailable [phone] Parmjit Dai MD Primary Care Provider [phone] Tico Burton MD Unavailable [phone] Ivan Liang MD Unavailable Encounter Details Date Type Department Care Team (Late st Contact Info) Description 11/18/2023 Telephone [facility] Center [address] [place] [phone] Julia Wyman RN Social History Tobacco Use Types Packs/Day Years Used Date Smoking Tobacco: Former Cigarettes - 1999 Vaping Smokeless Tobacco: Never Comments:off and on Alcohol Use Standard Drinks/Week Comments No 0 (1 standard drink = 0.6 oz pur e alcohol) on occasion [facility] Utilities Answer Date Recorded In the past 12 months has [employer], gas, oil, or water company threatened [...] often do you attend chur ch or congregation services? Never 09/09/2023 Do you belong to any clubs o r organizations such as restorationism groups, unions, fraternal or athletic groups, or [...] place to sleep or slept in a usp (including now)? No 09/09/2023 Personal Safety Answer Date Recorded Have you ever been in or are you currently in a harmful physical or emotional relationship or is someone making you feel afraid or unsafe? Denies 10/07/2023 Comments No Sex and Gender Information Value Date Recorded Sex Assigned at Not on file Legal Sex Female 10:06 AM SOLE BUFFER Gender Identity Female 06/17/2024 7:02 AM CDT Sexual Orientation Not on file documented as of this encounter Miscellaneous Notes * Telephone Encounter - Julia Wyman RN - 11/18/2023 2:55 PM CDT Tried calling pt to schedule EMOTE and anorectal motility. PT stated she tried to have the esophageal motility placed before she was unable to tolerate probe placement while awake. Told pt she would have to talk with Dr. Negorn to see if she would be okay with it being placed endoscopically and wewould need to have a new order for an EGD if the MD still wanted test. Pt was going to call back once talked with MD documented in this encounter Plan of Treatment Upcoming Encounters Date Type Department Care Team (Latest Contact Info) Description 09/07/2024 8:30 AM SOLE BUFFER Hospital Encounter [facility] [address] [place] [phone] Forest Catherine MD [address] [address] 09/07/2024 8:30 AM SOLE BUFFER - 09/07/2024 9:00 AM SOLE BUFFER Surgery [facility] [address] [place] [phone] Forest Catherine MD [address] [address] EGD w/Endo Flip & YI placement Scheduled Procedures Name Priority Associated Diagnoses Date/Ti me ESOPHAGOGASTRODUODENOSCOPY Hiatal hernia Gastroesophageal reflux disease, unspecified whether esophagitis present 09/07/2024 8:30 AM SOLE BUFFER documented as of this encounter Visit Diagnoses Not on filedocumented in this encounter Care Teams Swimming Pool Servicer Relationship Specialty Start Date End Date Parmjit Dai MD PCP - General 12/31/20 Mere Landa NP Nurse Practitioner 02/07/20 Tico Burton MD Surgeon General Surgery 08/09/21 Ivan Liang MD Consulting Physician General Surgery 09/09/23 documented as of this encounter
--- OUTSIDE RECORDS SUMMARY | 2024-08-16 04:32 | XMS_ITS | Encounter Summary ---
Author Organization [facility] Healthcare Address [address] [place] [address] Care Team Providers Care Steam Clothes Press Operator Name Role Phone Mere Landa NP Unavailable [phone] Parmjit Dai MD Primary Care Provider [phone] Tico Burton MD Unavailable [phone] Ivan Liang MD Unavailable Reason for Visit * Reason Comments Chest Pain Encounter Details Date Type Department Care Team (Late st Contact Info) Description 10/07/2023 7:48 PM SCOURING MACHINE OPERATOR - 10/07/2023 11:09 PM [facility] Emergency [facility] Emergency Department [address] [place] [address] Kat Biggs MD [address] [place] [address] [place] [address] Chronic abdominal pain (Primary Dx); Left flank pain; Chest pain, unspecified type Discharge Disposition: Discharge to home or self care Social History Tobacco Use Types Packs/Day Years Used Date Smoking Tobacco: Former Cigarettes - 1999 Vaping Smokeless Tobacco: Never Comments:off and on Alcohol Use Standard Drinks/Week Comments No 0 (1 standard drink = 0.6 oz pur e alcohol) on occasion [facility] Utilities Answer Date Recorded In the past 12 months has [employer], oil, or water [employer] threatened to shut off services in your [...] often do you attend chur ch or spiritism services? Never 09/09/2023 Do you belong to any clubs o r organizations such as sikh groups, unions, fraternal or athletic groups, or [...] on file Legal Sex Female 10:06 AM SCOURING MACHINE OPERATOR Gender Identity Female 06/17/2024 7:02 AM CDT Sexual Orientation Not on file documented as of this encounter Last Filed Vital Signs Vital Sign Reading Time Taken Comments Blood Pressure 115/75 10/07/2023 10:00 PM SCOURING MACHINE OPERATOR Pulse 57 10/07/2023 10:00 PM SCOURING MACHINE OPERATOR Temperature 35.8 ??C (96.5 ??F) 10/07/2023 10:[address] Respiratory Rate 12 10/07/2023 10:00 PM SCOURING MACHINE OPERATOR Oxygen Saturation 97% 10/07/2023 10:00 PM SCOURING MACHINE OPERATOR Inhaled Oxygen Concentration - - Weight 56.7 kg (125 lb) 10/07/2023 5:45 PM SCOURING MACHINE OPERATOR Height - - Body Mass Index 21.46 09/29/2023 10:42 AM SCOURING MACHINE OPERATOR documented in this encounter Discharge Instructions * Discharge Instructions* Kat Biggs MD - 10/07/2023 9:53 PM SCOURING MACHINE OPERATOR Continue your previously prescribed medications. Perkins diet Increase fluids. Follow-up with your doctor in 2-3 days. Return to the ER with worsening symptoms or with concerns. RING MACHINE OPERATOR documented in this encounter Medications at Time [...] MOUTH TWICE DAILY. START TAKING Saturday 07/0707/08/2022 metoprolol XL (TOPROL-XL) 25 mg extended release tablet Take 1 tablet (25 mg total) by mouth daily baclofen (LIORESAL) 10 mg tablet Take 1/2-1 pill t.i.d. Take 10-15 minutes before eating to help with the esophageal spasms. 90 tablet 3 08/06/2023 4 lactulose solution 10 gram/15mL Take 15-30 [...] for nausea or vomiting 20 tablet 3 05/29/2023 4 ondansetron (ZOFRAN) 8 mg tablet Take [...] or self care documented in this encounter ED Notes * Kat Biggs MD - 10/07/2023 7:57 PM CST HPI Chief Complaint Patient presents with Chest Pain HPI Patient History: This is a 53-year-old female with a history of tremor, TIA, CVA, IBS, hypertension, AFib on Eliquis, cyclical vomiting, bipolar, migraines who presents with intermittent left-sided chest pain since this morning and left flank pain for 2 days. She notes nausea and inability to keep down food. Per chart review patient had an appendectomy on 09/09. She was seen here in the ER on 09/19 for legpain she had a CT scan of the abdomen pelvis with contrast on 09/19 which showed postop changes. She also had CT scans on 09/09/22 and 08/19/23 Patient Active Problem List Diagnosis Date Noted Slow transit constipation 09/24/2023 Small intestinal bacterial [...] Cyclic vomiting syndrome 08/09/2021 Bipolar affect, depressed ([facility]) 08/09/2021 Intussusception intestine (CMS/HCC) ([facility]) 08/09/2021 Hypertension 08/08/2021 Abdominal pain, generalized 08/08/2021 Atrial fibrillation (CMS/HCC) ([facility]) 05/15/2020 Essential tremor 10/12/2018 Jerky body movements 10/12/2018 Irritable bowel syndrome with both constipation and diarrhea 02/23/2018 Orthostatic dizziness 09/16/2016 Palpitations 07/29/2016 Migraine headache 07/29/2016 Past Medical History: Diagnosis Date A-fib (CMS/HCC) ([facility]) Anemia Anxiety Arthritis Bipolar affect, depressed ([facility]) Chronic nausea 09/24/2021 Colon polyp Cyclic vomiting syndrome Depression Headache, tension-type Hypertension Hypotension IBS (irritable bowel syndrome) Migraine Nausea and vomiting, unspecified vomiting type 12/18/2021 Stroke ([facility]) TIA Weight loss Past Surgical History: Procedure Laterality Date ABDOMINAL SURGERY 2013 hiatel hernia repair ARTHROSCOPIC SURGERY Left 1984,1994,2001 knee SECTION 1992 CHOLECYSTECTOMY COLONOSCOPY 1-2yrs ago COLONOSCOPY 10/29/2022 ENDOMETRIAL ABLATION HERNIA REPAIR POLYPECTOMY TUBAL LIGATION Family History Problem Relation Age of Onset Esophageal cancer Maternal Grandmother Heart disease Maternal Grandmother Stroke Maternal Grandmother Hypertension Maternal Grandmother Migraines Mother Social History Tobacco Use Smoking status: Former Types: Vaping, Cigarettes Start date: 1983 Quit date: 1999 Years since quittin.1 Smokeless tobacco: Never Tobacco comments: off and on Vaping Use Vaping Use: Every day Start date: 10/02/2014 Substances: Nicotine, Flavoring Devices: Pre-filled or refillable cartridge, Refillable tank Substance and Sexual Activity Alcohol use: No Comment: on occasion Drug use: Yes Types: Marijuana Comment: occasionally last used 1-3-24 Sexual activity: Defer control/protection: Post-menopausal Social History Social History Narrative Not on file Review of Systems Review of Systems Constitutional: Negative for chills. HENT: Negative for congestion. Eyes: Negative for pain. Respiratory: Negative for chest tightness. Cardiovascular: Positive for chest pain. Negative for leg swelling. Gastrointestinal: Positive for abdominal pain. Endocrine: Negative for polydipsia. Genitourinary: Positive for flank pain. Negative for dysuria. Musculoskeletal: Negative for back pain. Allergic/Immunologic: Negative for food allergies. Neurological: Negative for headaches. Hematological: Negative for adenopathy. Psychiatric/Behavioral: Negative for behavioral problems. All other systems reviewed and are negative. Physical Exam ED Triage Vitals [10/07/23 1745] Temp Pulse Resp BP SpO2 36.7 ??C (98.1 ??F) 60 16 110/61 100 % Temp src Heart Rate Source Patient Position BP Location FiO2 (%) Temporal -- -- -- -- Height Height Method Weight Weight Method -- -- 56.7 kg (125 lb) Stated Physical Exam Vitals and nursing note reviewed. Constitutional: General: She is not in acute distress. Appearance: She is normal weight. She is not ill-appearing. HENT: Head: Normocephalic. Eyes: Extraocular Movements: Extraocular movements intact. Pupils: Pupils are equal, round, and reactive to light. Cardiovascular: Rate and Rhythm: Normal rate and regular rhythm. Pulses: Carotid pulses are 2+ on the right side and 2+ on the left side. Radial pulses are 2+ on the right side and 2+ on the left side. Dorsalis pedis pulses are 2+ on the right side and 2+ on the left side. Posterior tibial pulses are 2+ on the right side and 2+ on the left side. Heart sounds: Normal heart sounds. Pulmonary: Effort: Pulmonary effort is normal. Breath sounds: Normal breath sounds. Chest: Chest wall: No tenderness. Abdominal: General: Bowel sounds are normal. Palpations: Abdomen is soft. Tenderness: There is no abdominal tenderness. Comments: Left flank minimally tender Musculoskeletal: General: Normal range of motion. Cervical back: Normal range of motion and neck supple. Right lower leg: No tenderness. No edema. Left lower leg: No tenderness. No edema. Skin: General: Skin is warm. Capillary Refill: Capillary refill takes less than 2 seconds. Findings: No ecchymosis. Neurological: General: No focal deficit present. Mental Status: She is alert. Psychiatric: Mood and Affect: Mood normal. MDM NIH Score Medical Decision Making This is a 53-year-old female with a history of tremor, TIA, CVA, IBS, hypertension, AFib on Eliquis, cyclical vomiting, bipolar, migraines who presents with intermittent left-sided chest pain since this morning and left flank pain for 2 days. Differential includes infection, PE, ACS, chest wall stra in, GERD, esophagitis, other Amount and/or Complexity of Data Reviewed Independent Historian: Details: Alone External Data Reviewed: notes. Labs: ordered. Radiology: ordered. ECG/medicine tests: ordered. Risk OTC drugs. Prescription drug management. ED Course as of 10/07/232157 Time: 10/07 2152 Comment: EKG done at 5:51 p.m. normal sinus rhythm rate [address] changes By: Kat Biggs MD Time: 10/07 2157 Comment: Patient feeling better. Will discharge By: Kat Biggs MD Final diagnoses: Chronic abdominal pain Left flank pain Chest pain, unspecified type Kat Biggs MD 10/07/232157 RING MACHINE OPERATOR * Cori Garcia RN - 10/07/2023 5:44 PM CST Pt ambulatory to triage with c/o L sided chest pain intermittently since this morning and flank pain x 2 days. PMH a-fib RING MACHINE OPERATOR documented in this encounter Plan of Treatment Upcoming Encounters Date Type Department Care Team (Latest Contact Info) Description 09/07/2024 8:30 AM SCOURING MACHINE OPERATOR Hospital Encounter [facility] [address] [place] [phone] Forest Catherine MD [address] [address] 09/07/2024 8:30 AM SCOURING MACHINE OPERATOR - 09/07/2024 9:00 AM SCOURING MACHINE OPERATOR Surgery [facility] [address] [place] [phone] Forest Catherine MD [address] [address] EGD w/Endo Flip & YI placement Scheduled Procedures Name Priority Associated Diagnoses Date/Ti me ESOPHAGOGASTRODUODENOSCOPY Hiatal hernia Gastroesophageal reflux disease, unspecified whether esophagitis present 09/07/2024 8:30 AM SCOURING MACHINE OPERATOR documented as of this encounter Procedures Procedure Name Priority Date/Time Associated Diagnosis Comments CT CHEST PE ABDOMEN PELVIS W CONTRAST ED 10/07/2023 9:03 PM SCOURING MACHINE OPERATOR TROPONIN T HIGH-SENSITIVITY 2-HOUR Timed 10/07/2023 8:23 PM SCOURING MACHINE OPERATOR URINALYSIS AND REFLEX TO MICROSCOPIC AND CULTURE STAT 10/07/2023 6:54 PM SCOURING MACHINE OPERATOR XR CHEST PA LATERAL 2 VIEWS ED 10/07/2023 6:07 PM SCOURING MACHINE OPERATOR TROPONIN T HIGH-SENSITIVITY SERIES (BASELINE, 2HR, 4HR, 6HR) STAT 10/07/2023 5:54 PM SCOURING MACHINE OPERATOR EGFR STAT 10/07/2023 5:54 PM SCOURING MACHINE OPERATOR DIFFERENTIAL AUTO STAT 10/07/2023 5:5 4 PM SCOURING MACHINE OPERATOR CBC WITH AUTO DIFFERENTIAL STAT 10/07/2023 5:54 PM SCOURING MACHINE OPERATOR LIPASE STAT 10/07/2023 5:54 PM SCOURING MACHINE OPERATOR COMPREHENSIVE METABOLIC PANEL STAT 10/07/2023 5:54 PM SCOURING MACHINE OPERATOR ECG 12-LEAD STAT 10/07/2023 5:51 PM SCOURING MACHINE OPERATOR documented in this encounter Results * CT Chest PE (CTA) Abdomen Pelvis W Contrast (10/07/2023 9:03 PM SCOURING MACHINE OPERATOR) Anatomical Region Laterality Modality Body N/A Computed Tomogra phy 10/07/2023 9:32 PM SCOURING MACHINE OPERATOR Narrative 10/07/2023 9:39 PM SCOURING MACHINE OPERATOR EXAM DESCRIPTION: CT CHEST PE (CTA) ABDOMEN PELVIS W CONTRAST REASON FOR STUDY: cp and flank pain and abd pain ?? Intermittent left side chest pain, left flank pain, and nausea for 2 days ?? Hx of HTN, a-fib,hernia repair, cholecystectomy, and tubal ligation ? TECHNIQUE: CT angiogram of the chest with routine abdomen and pelvis performed with intravenous and ??without ??oral contrast using helical scanning technique with dynamic intravenous contrast injection. Reconstructed coronal and sagittal MPR images reviewed. All images stored on PACS. ??3D MIP images of the chest rendered on scanning unit and reviewed at time of interpretation. ?? Automated exposure control was used as a dose optimization technique for this examination. CONTRAST TYPE/DOSE: 75mL of IOVERSOL 350 MG IODINE/ML INTRAVENOUS SYRINGE ?? injected via ?? intravenous COMPARISON: 09/19/2023 REFERENCE: Per ACR white paper recommendations, unless otherwise specified no follow-up imaging is recommended for incidental renal and adrenal lesions per consensus recommendations based on imaging criteria. Further lab evaluation could be pursued based on clinical findings. FINDINGS: CHEST CHEST VASCULATURE: ??No acute pulmonary thromboembolism. LUNGS: ??No nodules or masses. No pneumonia. PLEURA: ??No effusion. No pneumothorax. MEDIASTINUM/ANNE: ??No identified masses or abnormal nodes. HEART: ??Heart size is normal with no pericardial effusion. AXILLA: ??No adenopathy. CHEST WALL: ??No masses. ??No subcutaneous air. HARDWARE/LINES/TUBES: ??None. MUSCULOSKELETAL CHEST: ??No significant abnormality. ABDOMEN/PELVIS LIVER: ??Small focus of calcification within the lateral aspect of the right lobe is similar to previous GALLBLADDER: ??Removed BILE DUCTS: ??No intrahepatic or extrahepatic ductal dilatation. SPLEEN: ??Normal size. ??No focal lesions. PANCREAS: ??No identified cystic or solid masses. No significant calcifications. No adjacent inflammation or peripancreatic fluid collections. Pancreatic duct not dilated. ?? ADRENALS: ??Normal. KIDNEYS/URINARY TRACT: ??No identified significant cystic or solid masses. No visualized stones. No hydronephrosis or hydroureter. Symmetric enhancement. ?? Urinary bladder is unremarkable. GI: ??No dilated bowel loops. No obvious wall thickening. ??The appendix appears to have been removed.. ??No significant diverticular disease. PERITONEUM: ??No ascites or free air. RETROPERITONEUM: ??No mass or adenopathy. REPRODUCTIVE: ??No significant abnormality. VASCULATURE ABDOMEN: ??No abdominal aortic aneurysm. MUSCULOSKELETAL ABDOMEN PELVIS: ??No acute finding. OTHER: ??No significant abnormality. IMPRESSION: No evidence of pulmonary embolism is seen. No acute process is otherwise seen to explain the patient's symptoms. THIS IS AN ELECTRONICALLY VERIFIED FINAL REPORT 10/07/2023 9:39 PM - Electronically signed by ??Humza Jolly M.D. KH: TARIK D: ??10/07/2023 9:39 PM T: ??10/07/2023 9:39 PM Report ID: [id number] Reading Location: ??[id number] Procedure Note Humza Jolly MD - 10/07/2023 EXAM DESCRIPTION: CT CHEST PE (CTA) ABDOMEN PELVIS W CONTRAST REASON FOR STUDY: cp and flank pain and abd pain Intermittent left side chest pain, left flank pain, and nausea for 2 daysHx of HTN, a-fib,hernia repair, cholecystectomy, and tubal ligation TECHNIQUE: CT angiogram of the chest with routine abdomen and pelvisperformed with intravenous and without oral contrast using helical scanningtechnique with dynamic intravenous contrast injection. Reconstructed coronal and sagittal MPR images reviewed. All images stored on PACS. 3D MIP images ofthe chest rendered on scanning unit and reviewed at time of interpretation. Automated exposure control was used as a dose optimization technique forthis examination. CONTRAST TYPE/DOSE: 75mL of IOVERSOL 350 MG IODINE/ML INTRAVENOUS SYRINGE injected via intravenous COMPARISON: 09/19/2023 REFERENCE: Per ACR white paper recommendations, unless otherwise specifiedno follow-up imaging is recommended for incidental renal and adrenal lesionsper consensus recommendations based on imaging criteria. Further labevaluation could be pursued based on clinical findings. FINDINGS: CHEST CHEST VASCULATURE: No acute pulmonary thromboembolism. LUNGS: No nodules or masses. No pneumonia. PLEURA: No effusion. No pneumothorax. MEDIASTINUM/ANNE: No identified masses or abnormal nodes. HEART: Heart size is normal with no pericardial effusion. AXILLA: No adenopathy. CHEST WALL: No masses. No subcutaneous air. HARDWARE/LINES/TUBES: None. MUSCULOSKELETAL CHEST: No significant abnormality. ABDOMEN/PELVIS LIVER: Small focus of calcification within the lateral aspect of theright lobe is similar to previous GALLBLADDER: Removed BILE DUCTS: No intrahepatic or extrahepatic ductal dilatation. SPLEEN: Normal size. No focal lesions. PANCREAS: No identified cystic or solid masses. No significant calcifications. No adjacent inflammation or peripancreatic fluidcollections. Pancreatic duct not dilated. ADRENALS: Normal. KIDNEYS/URINARY TRACT: No identified significant cystic or solid masses.No visualized stones. No hydronephrosis or hydroureter. Symmetricenhancement. Urinary bladder is unremarkable. GI: No dilated bowel loops. No obvious wall thickening. The appendixappears to have been removed.. No significant diverticular disease. PERITONEUM: No ascites or free air. RETROPERITONEUM: No mass or adenopathy. REPRODUCTIVE: No significant abnormality. VASCULATURE ABDOMEN: No abdominal aortic aneurysm. MUSCULOSKELETAL ABDOMEN PELVIS: No acute finding. OTHER: No significant abnormality. IMPRESSION: No evidence of pulmonary embolism is seen. No acute process is otherwise seen to explain the patient's symptoms. THIS IS AN ELECTRONICALLY VERIFIED FINAL REPORT 10/07/2023 9:39 PM - Electronically signed by Humza Jolly M.D. KH: TARIK Report ID: [id number] Reading Location: [id number] Kat Biggs MD IMG CT PROCEDURES Final R esult * Troponin T high-sensitivity 2-hour (10/07/2023 8:23 PM SCOURING MACHINE OPERATOR) Trop T hs <6 <=14 ng/L [facility] ([place]) Comment: Interpretive Data For further hscTnT resources including the diagnostic algorithm and an aid in interpretation, copy and paste this link: https://nrl.testcatalog.org/show/hsTrop Current Interpretive Data last revised 2020. Trop T hs delta 0 ng/L [facility] Trop T hs interp Insignificant [facility] Blood 10/07/2023 8:23 PM SCOURING MACHINE OPERATOR 10/07/2023 8:26 PM SCOURING MACHINE OPERATOR us Cornelius Monson MD LAB BLOOD ORDERABLES Final Res ult [facility] ([place]) [address] [facility] Department [place] [address] * Urinalysis reflex to microscopic and culture Urine, clean voided (10/07/2023 6:54 PM SCOURING MACHINE OPERATOR) Color, ur Straw Yellow [facility] Clarity, ur Clear Clear [facility] ([place]) Specific gravity, ur 1.005 1.003 - 1.030 [facility] ([place]) pH, urine 8.0 [facility] Comment: Interpretive Data ? Urine pH is affected by diet, medications, systemic acid-base disturbances, and renal tubular function. ??pH may affect urinary stone formation. ??For example, urine pH below 6.0 may help reduce the tendency for calcium phosphate stones and pH greater than 6.0 may reduce the tendency for uric acid stone formation. Source: [employer] Current Interpretive Data was last revised on 2017 Protein, ur ql Negative Negative [facility] Glucose, ur ql Negative Negative [facility] ([place]) Ketones, ur Negative Negative [facility] ([place]) Bilirubin, ur Negative Negative [facility] ([place]) Blood, ur Negative Negative [facility] ([place]) Urobilinogen, ur <2.0 <2.0 mg/dL [facility] ([place]) Nitrite, ur Negative Negative [facility] ([place]) Leukocyte esterase, ur Negative Negative [facility] ([place]) UA reflex comment Reflex conditions for microscopic UA and culture not met. [facility] ([place]) Urine, clean voided 10/07/2023 6:54 PM SCOURING MACHINE OPERATOR 10/07/2023 7:10 PM SCOURING MACHINE OPERATOR us Kat Biggs MD LAB MICROBIOLOGY - GENERA L ORDERABLES Final Result [facility] [address] [facility] Department [place] [address] * XR Chest Pa Lateral 2 Views (10/07/2023 6:07 PM SCOURING MACHINE OPERATOR) Anatomical Region Laterality Modality Body, Chest N/A Computed Radiogr aphy 10/07/2023 6:12 PM SCOURING MACHINE OPERATOR Narrative 10/07/2023 6:12 PM SCOURING MACHINE OPERATOR EXAM DESCRIPTION: XR CHEST PA LATERAL 2 VIEWS REASON FOR STUDY: chest pain ?? Pt ambulatory to triage with c/o L sided chest pain intermittently since this morning and flank pain x 2 days. ?? Hx of a-fib ??No surgery ?? TECHNIQUE: 2 ??radiographic view(s) of the chest. COMPARISON: Chest radiographs 09/19/2023 FINDINGS: LUNGS: ??No focal opacity, pleural effusion, or pneumothorax. ?? HEART/MEDIASTINUM: ??Cardiac silhouette normal in size. Mediastinal and hilar contours appear normal. LINES/TUBES: ??None. BONES: ??No acute osseous abnormality. IMPRESSION: No acute cardiopulmonary abnormality. THIS IS AN ELECTRONICALLY VERIFIED FINAL REPORT 10/07/2023 6:12 PM - Electronically signed by ??Princess Grant Burns M.D. FT: FT D: ??10/07/2023 6:12 PM T: ??10/07/2023 6:12 PM Report ID: [id number] Reading Location: ??[id number] Procedure Note Princess Almodovar MD - 10/07/2023 EXAM DESCRIPTION: XR CHEST PA LATERAL 2 VIEWS REASON FOR STUDY: chest pain Pt ambulatory to triage with c/o L sided chest pain intermittently sincethis morning and flank pain x 2 days. Hx of a-fib No surgery TECHNIQUE: 2 radiographic view(s) of the chest. COMPARISON: Chest radiographs 09/19/2023 FINDINGS: LUNGS: No focal opacity, pleural effusion, or pneumothorax. HEART/MEDIASTINUM: Cardiac silhouette normal in size. Mediastinal andhilar contours appear normal. LINES/TUBES: None. BONES: No acute osseous abnormality. IMPRESSION: No acute cardiopulmonary abnormality. THIS IS AN ELECTRONICALLY VERIFIED FINAL REPORT 10/07/2023 6:12 PM - Electronically signed by Princess Burns M.D. FT: FT Report ID: [id number] Reading Location: [id number] Kat Biggs MD IMG XR PROCEDURES Final R esult * eGFR (10/07/2023 5:54 PM SCOURING MACHINE OPERATOR) eGFR 77 mL/min/1. 73 m2 [facility] ([place]) Comment: Interpretive Data Reference Interval Normal ?>/= 90 mL/min/1.73m2 Mildly decreased* ? 60 - 89 mL/min/1.73m2 Mildly to moderately decreased ?45 - 59 mL/min/1.73m2 Moderately to severely decreased ??30 - 44 mL/min/1.73m2 Severely decreased ?15 - 29 mL/min/1.73m2 Kidney Failure ?< 15 ??mL/min/1.73m2 *Relative to young adult level Estimated glomerular filtration rate is determined by the 2020 CKD-EPI equation recommended by the National Kidney Foundation (A Unifying Approach to GFR Estimation: Recommendations of the NKF-ASK Task Force on Reassessing the Inclusion of Race in Diagnosing Kidney Disease, JASN 2020). The CKD-EPI equation should not be used for patients with unstable renal function and has not been validated in children and those over 70. Current interpretive data was last reviewed 2021. Blood 10/07/2023 5:54 PM SCOURING MACHINE OPERATOR 10/07/2023 5:57 PM SCOURING MACHINE OPERATOR us Kat Biggs MD LAB BLOOD ORDERABLES Cristy l Result [facility] ([place]) [address] [facility] Department [place] [address] * Differential, auto (10/07/2023 5:54 PM SCOURING MACHINE OPERATOR) Neutrophil abs 3.5 1.5 - 6.5 K/cumm [facility] ([place]) Imm gran abs 0.0 0.0 - 0.1 K/cumm [facility] ([place]) Lymphocyte abs 1.7 0.8 - 3.3 K/cumm [facility] ([place]) Monocyte abs 0.5 0.2 - 0.8 K/cumm [facility] ([place]) Eosinophil abs 0.0 0.0 - 0.5 K/cumm [facility] ([place]) Basophil abs 0.0 0.0 - 0.1 K/cumm [facility] ([place]) Neutrophil pct 60.5 % [facility] ([place]) Comment: Interpretive Data Percent cell count reference ranges are not reported, since discordance with absolute values may lead to misinterpretation of CBC data. Current Interpretive Data was last revised on 2017. Imm gran pct 0.2 % [facility] ([place]) Comment: Interpretive Data Percent cell count reference ranges are not reported, since discordance with absolute values may lead to misinterpretation of CBC data. Current Interpretive Data was last revised on 2017. Lymphocyte pct 30.3 % [facility] ([place]) Comment: Interpretive Data Percent cell count reference ranges are not reported, since discordance with absolute values may lead to misinterpretation of CBC data. Current Interpretive Data was last revised on 2017. Monocyte pct 8.0 % [facility] ([place]) Comment: Interpretive Data Percent cell count reference ranges are not reported, since discordance with absolute values may lead to misinterpretation of CBC data. Current Interpretive Data was last revised on 2017. Eosinophil pct 0.5 % [facility] ([place]) Comment: Interpretive Data Percent cell count reference ranges are not reported, since discordance with absolute values may lead to misinterpretation of CBC data. Current Interpretive Data was last revised on 2017. Basophil pct 0.5 % [facility] ([place]) Comment: Interpretive Data Percent cell count reference ranges are not reported, since discordance with absolute values may lead to misinterpretation of CBC data. Current Interpretive Data was last revised on 2017. Blood 10/07/2023 5:54 PM SCOURING MACHINE OPERATOR 10/07/2023 5:57 PM SCOURING MACHINE OPERATOR Kat Biggs MD LAB BLOOD ORDERABLES Cristy l Result Performing Organization Address City/[facility]/ZIP Co de Phone Number [facility] ([place]) [address] [facility] [place] [address] * Lipase (10/07/2023 5:54 PM SCOURING MACHINE OPERATOR) Lipase 43 10 - 99 Units/L [facility] ([place]) Blood 10/07/2023 5:54 PM SCOURING MACHINE OPERATOR 10/07/2023 5:57 PM SCOURING MACHINE OPERATOR Kat Biggs MD LAB BLOOD ORDERABLES Cristy l Result Performing Organization Address City/[facility]/ZIP Co de Phone Number [facility] ([place]) [address] [facility] [place] [address] * Troponin T high-sensitivity series (baseline, 2hr, 4hr, 6hr) (10/07/2023 5:54 PM SCOURING MACHINE OPERATOR) Pathologist [facility] Trop T hs <6 <=14 ng/L [facility] ([place]) Comment: Interpretive Data For further hscTnT resources including the diagnostic algorithm and an aid in interpretation, copy and paste this link: https://nrl.testcatalog.org/show/hsTrop Current Interpretive Data last revised 2020. Blood 10/07/2023 5:54 PM SCOURING MACHINE OPERATOR 10/07/2023 5:57 PM SCOURING MACHINE OPERATOR Kat Biggs MD LAB BLOOD ORDERABLES Cristy l Result [facility] ([place]) [address] [facility] Department [place] [address] * Comprehensive metabolic panel (10/07/2023 5:54 PM SCOURING MACHINE OPERATOR) [facility] Sodium 143 135 - 145 mmol/L [facility] ([place]) Potassium, pl 3.8 3.3 - 4.9 mmol/L [facility] ([place]) Chloride 104 97 - 110 mmol/L [facility] ([place]) CO2 26 22 - 32 mmol/L [facility] ([place]) Anion gap 13 2 - 15 mmol/L [facility] ([place]) BUN 8 6 - 25 mg/dL [facility] ([place]) Creatinine 0.89 0.60 - 1.10 mg/dL [facility] ([place]) Glucose 100 70 - 199 mg/dL [facility] ([place]) Comment: Interpretive Data Fasting glucose >/= 126 mg/dl is diagnostic for diabetes. ?? Fasting is defined as no caloric intake for at least 8 hours. Fasting glucose between 100 mg/dl to 125 mg/dl is diagnostic of prediabetes. In a patient with classic symptoms of hyperglycemia or hyperglycemic crisis, a random glucose >/= 200 mg/dl is diagnostic for diabetes. In the absence of unequivocal hyperglycemia, results should be confirmed by repeat testing. The classification and Diagnosis of Diabetes Diabetes Care 2021; 46: S19-S40. Current interpretive data was last revised 2022. Calcium 9.8 8.5 - 10.3 mg/dL [facility] ([place]) Bilirubin, total 0.4 0.1 - 1.2 mg/dL [facility] ([place]) Protein, pl 7.6 6.5 - 8.5 g/dL [facility] ([place]) Albumin 4.7 3.5 - 5.0 g/dL [facility] ([place]) Alk phos 106 40 - 130 Units/L [facility] ([place]) ALT 38 7 - 45 Units/L [facility] ([place]) AST 35 10 - 45 Units/L [facility] ([place]) Blood 10/07/2023 5:54 PM SCOURING MACHINE OPERATOR 10/07/2023 5:57 PM SCOURING MACHINE OPERATOR us Kat Biggs MD LAB BLOOD ORDERABLES Cristy l Result [facility] ([place]) [address] [facility] [place] [address] * (ABNORMAL) CBC with auto differential (10/07/2023 5:54 PM SCOURING MACHINE OPERATOR) WBC 5.7 3.8 - 9.9 K/cumm [facility] ([place]) Hgb 12.1 11.9 - 15.5 g/dL [facility] ([place]) Hct 38.0 35.6 - 45.5 % [facility] ([place]) Plt 286 150 - 400 K/cumm [facility] ([place]) MPV 10.3 9.1 - 12.3 fL [facility] ([place]) RBC 4.24 3.90 - 5.20 M/cumm [facility] ([place]) MCV 89.6 81.3 - 96.4 fL [facility] ([place]) MCH 28.5 27.1 - 33.3 pg [facility] ([place]) MCHC 31.8(L) 32.3 - 35.7 g/dL [facility] ([place]) RDW CV 20.1(H) 11.1 - 14.9 % [facility] ([place]) RDW SD 65.6(H) 35.7 - 48.1 fL [facility] ([place]) NRBC abs 0.00 0.00 - 0.01 K/cumm [facility] ([place]) Blood (Blood, Venous) 10/07/2023 5:54 PM SCOURING MACHINE OPERATOR 10/07/2023 5:57 PM SCOURING MACHINE OPERATOR Kat Biggs MD LAB BLOOD ORDERABLES Cristy l Result Performing Organization Address City/[facility]/ZIP Co de Phone Number [facility] ([place]) [address] [facility] [place] [address] * ECG 12 lead (10/07/2023 5:51 PM SCOURING MACHINE OPERATOR) 10/07/2023 5:51 PM SCOURING MACHINE OPERATOR Narrative [facility] - 10/08/2023 10:43 AM SCOURING MACHINE OPERATOR Vent Rate: 58 bpm RR Interval: 1023 msec ND Interval: 147 msec QRS Duration: 85 msec QT Interval: 424 msec QTC Interval: 421 msec P-R-T [place]: 65 - 42 - 56 degrees IMPRESSION: SINUS BRADYCARDIA BORDERLINE ECG NO CHANGE FROM PREVIOUS TRACING NOTED Electronically Signed By: Arnaldo Yan MD Kat Biggs MD ECG ORDERABLES Final Res ult Performing Organization Address [facility] Phone Number [facility] [email or web address] [facility] documented in this encounter Visit Diagnoses Diagnosis Chronic abdominal pain- Primary Abdominal pain, unspecified site Left flank pain Abdominal pain, unspecified site Chest pain, unspecified type Hiatal hernia Diaphragmatic hernia without mention of obstruction or gangrene Gastroesophageal reflux disease, unspecified whether esophagitis present documented in this encounter Administered Medications Inactive Administered Medications - up to 3 most recent administrations Medication Order MAR Action Action Date Dose Rate Site aspirin chewable tablet 324 mg 324 mg, oral, Once, On Thu10/07/23 at 1746, For 1 dose, Indications: Chest PainIndications:Chest Pain Given 10/07/2023 7:59 PM SCOURING MACHINE OPERATOR 324 mg droPERidol (INAPSINE) injection 1.25 mg 1.25 mg, intravenous, Administer over 5 Minutes, Once, On Thu10/07/23 at 2006, For 1 dose Given 10/07/2023 8:27 PM SCOURING MACHINE OPERATOR 1.25 mg ioversoL (OPTIRAY 350) syringe 75 mL 75 mL, intravenous, Once in imaging, contrast, Starting on Thu10/07/23 at 2103, For 1 dose Contrast Given 10/07/2023 9:03 PM SCOURING MACHINE OPERATOR 75 mL pantoprazole (PROTONIX) 40 mg in sodium chloride 0.9% 10 mL IV Syringe 40 mg, intravenous, at 300 mL/hr, Administer over 2 Minutes, Once, On Thu10/07/23 at 2151, For 1 dose, For IV administration, reconstitute 40 mg vial with 10 mL sodium chloride 0.9% for injection for a final concentration of 4 mg/mL, Indications: Treatment of Non-Bleeding Gastric DisorderIndications:Treatm ent of Non-Bleeding Gastric Disorder Given 10/07/2023 10:23 PM SCOURING MACHINE OPERATOR 40 mg 300 mL/hr sodium chloride 0.9% bolus 1,000 mL 1,000 mL, intravenous, at 1,000 mL/hr, Administer over 1 Hours, Once, On Thu10/07/23 at 2005, For 1 dose New Bag 10/07/2023 8:30 PM SCOURING MACHINE OPERATOR 1,000 mL 1000 mL/hr documented in this encounter Active and Recently Administered Medications Times are shown in SCOURING MACHINE OPERATOR. Scheduled Medication Order 10/05/2023 10/06/2023 10/07/2023 aspirin chewable tablet 324 mg (COMPLETED) 324 mg, oral, Once, On Thu10/07/23 at 1746, For 1 dose, Indications: Chest Pain 1958 (Given - Provid er: Gina Arreola RN) droPERidol (INAPSINE) injection 1.25 mg (COMPLETED) 1.25 mg, intravenous, Administer over 5 Minutes, Once, On Thu10/07/23 at 2005, For 1 dose 2026 (Given - Provid er: Lucy Rich RN) pantoprazole (PROTONIX) 40 mg in sodium chloride 0.9% 10 mL IV Syringe (COMPLETED) 40 mg, intravenous, at 300 mL/hr, Administer over 2 Minutes, Once, On Thu10/07/23 at 2151, For 1 dose, For IV administration, reconstitute 40 mg vial with 10 mL sodium chloride 0.9% for injection for a final concentration of 4 mg/mL, Indications: Treatment of Non-Bleeding Gastric Disorder 2223 (Given - Provid er: Gina Arreola, KIET) sodium chloride 0.9% bolus 1,000 mL (COMPLETED) 1,000 mL, intravenous, at 1,000 mL/hr, Administer over 1 Hours, Once, On Thu10/07/23 at 2006, For 1 dose 2030 (New Bag - Prov ider: Lucy Rich RN)2307 (Stopped - Provider: Gina Arreola RN) PRN Medication Order 10/05/2023 10/06/2023 10/07/2023 ioversoL (OPTIRAY 350) syringe 75 mL (COMPLETED) 75 mL, intravenous, Once in imaging, contrast, Starting on Thu10/07/23 at 210, For 1 dose 2102 (Contrast Given - Provider: Shanel Almonte RT) documented in this encounter Care Teams Steam Clothes Press Operator Relationship Specialty Start Date End Date Parmjit Dai MD PCP - General 12/31/20 Mere Landa NP Nurse Practitioner 02/07/20 Tico Burton MD Surgeon General Surgery 08/09/21 Ivan Liang MD Consulting Physician General Surgery 09/09/23 documented as of this encounter
--- OUTSIDE RECORDS SUMMARY | 2024-08-16 04:32 | XMS_ITS | Encounter Summary ---
Author Organization [facility] Address [address] [place] [address] Phone Care Team Providers Care Manager Performance Improvement Name Role Phone Mere Landa NP Unavailable [phone] Parmjit Dai MD Primary Care Provider [phone] Tico Burton MD Unavailable [phone] Ivan Liang MD Unavailable Reason for Visit * Reason Onset Date Comments GI Preprocedure 11/24/2023 Encounter Details Date Type Department Care Team (Late st Contact Info) Description 11/24/2023 Documentation [facility] Gastroenterology [facility] 12th [place] [address] [place] [address] Evelyn Kerns LPN GI Preprocedure Social History Tobacco Use Types Packs/Day Years Used Date Smoking Tobacco: Former Cigarettes 1 984 - 1999 Vaping Smokeless Tobacco: Never Comments:off and on Alcohol Use Standard Drinks/Week Comments No 0 (1 standard drink = 0.6 oz pur e alcohol) on occasion [facility] Utilities Answer Date Recorded In [...] often do you attend chur ch or taoism services? Never 09/09/2023 Do you belong to any clubs o r organizations such as muslim groups, unions, fraternal or athletic groups, or [...] on file Legal Sex Female 10:06 AM OVERNIGHT CAREGIVER Gender Identity Female 06/17/2024 7:02 AM CDT Sexual Orientation Not on file documented as of this encounter Progress Notes * Evelyn Kerns, KAVITHA - 11/24/2023 10:41 AM CDT PROCEDURE Type: EGD w/manometry placement Indication: GERD/ Referring Physician: Migdalia Date Referred: 10/2023 CLINICAL ASSESSMENT [x] Clinical assessment obtained via MyChart with patient 11/24/23 []COVID/Flu Screening questions []BMI>45, Weight >350 lbs [x] Patient had GI procedure/CPAP clinic/GI clinic <30 days (if Yes, no medical screening questions needed unless new clinical issues in last 30 days) Medical screening questions: Notes: PACEMAKER/ICD Y/N: No/NA Device info: Last documented device check: Any shocks since last cards visit (if yes must see cardiology for procedure clearance): DIALYSIS Y/N: No/NA []HD- Schedule on non-HD day, see protocol []PD- Drain PD fluid AM of procedure, if colonoscopy order AB ppx, see protocol REGULAR DIABETIC MEDS Y/N: No/NA []Yes- Discuss diabetes medication management with prescribing physician GLP DIABETIC MEDICATIONS Y/N: No/NA None Educated Patient on the need to hold Medication, and to contact their ordering MD or Molded Goods Spot Picker about bridging medication for procedure. N/A [] Yes - Letter Sent to Ordering Physician/Molded Goods Spot Picker Date sent: Hold instructions: GLP Weight Loss Medications N/A Educated Patient on the need to hold Medication, and to contact their ordering MD or Molded Goods Spot Picker about bridging medication for procedure. Y/N: No/NA None [] Yes - Letter Sent to Ordering Physician/Molded Goods Spot Picker Hold older Instructions: BLOOD THINNERS/ANTICOAG/ANTIPLATELET (BESIDES ASA) Medication: Apixaban (Eliquis) Physician contacted for hold order/date sent: 11/24/23 Dr. Tarik Michael Hold order Method sent: Epic Fax Date hold received: 11/25/23 Hold instructions: Hold Eliquis x 3 days CONTINUE ASPIRIN INFORMATION REQUESTED []Imaging: []Medical Progress Note/H&P []Medication list []Other: PATIENT OPTIMIZATION []Physician reviewing escalation: []CPAP: Date scheduled: Outcome : [] Location limitations: Scheduling Scheduling location limitations: Tool Chaser needed [] NA Language: POA [] NA Name: Required extended education:no SPECIAL PROCEDURE INSTRUCTIONS Scheduling Notes Procedure information Date of procedure: 02/08/24 Time of procedure: 0800 Arrival time: 0700 Location: [facility] Proceduralist: Paty Instructions Method of instructions: MyChart and Mailed Copy [x]Confirmation of ride/orthotic/prosthetic practitioner [x]Post anesthesia restrictions given [x]NPO Instructions: [x]Diet Instructions: [x]Take non-blood thinner prescription meds that morning []Bring med list, photo ID, insurance card, no valuables []Bring COVID vaccination card (if vaccinated) Bowel Prep Prep prescribed: NA Method of Bowel Prep (RX): NA documented in this encounter Plan of Treatment Upcoming Encounters Date Type Department Care Team (Latest Contact Info) Description 09/07/2024 8:30 AM [facility] Hospital Encounter [facility] [address] [place] [phone] Forest Catherine MD [address] [place] [address] 09/07/2024 8:30 AM OVERNIGHT CAREGIVER - 09/07/2024 9:00 AM OVERNIGHT CAREGIVER Surgery [facility] [address] [place] [phone] Forest Catherine MD [address] [place] [address] EGD w/Endo Flip & YI placement Scheduled Procedures Name Priority Associated Diagnoses Date/Ti me ESOPHAGOGASTRODUODENOSCOPY Hiatal hernia Gastroesophageal reflux disease, unspecified whether esophagitis present 09/07/2024 8:30 AM OVERNIGHT CAREGIVER documented as of this encounter Visit Diagnoses Diagnosis Gastroesophageal reflux disease, unspecified whether esophagitis present- Primary Other chronic gastritis without hemorrhage Esophageal dysmotility Dyskinesia of esophagus Hiatal hernia Diaphragmatic hernia without mention of obstruction or gangrene Gastroesophageal reflux disease, unspecified whether esophagitis present documented in this encounter Orders Case Request Count Last Ordered Date First Orde red Date CASE REQUEST GI 1 11/24/2023 documented in this encounter Care Teams Manager Performance Improvement Relationship Specialty Start Date End Date Parmjit Dai MD PCP - General 12/31/20 Mere Landa NP Nurse Practitioner 02/07/20 Tico Burton MD Surgeon General Surgery 08/09/21 Ivan Liang MD Consulting Physician General Surgery 09/09/23 documented as of this encounter
--- OUTSIDE RECORDS SUMMARY | 2024-08-16 04:32 | XMS_ITS | Encounter Summary ---
Author Organization [facility] Healthcare Address [address] [place] [address] Care Team Providers Care Louver Door Assembler Name Role Phone Mere Landa NP Unavailable [phone] Parmjit Dai MD Primary Care Provider [phone] Tico Burton MD Unavailable [phone] Ivan Liang MD Unavailable Reason for Visit * Reason Comments Leg Pain Encounter Details Date Type Department Care Team (Late st Contact Info) Description 09/19/2023 8:51 AM CONSTRUCTION TRADES CONTRACTOR - 09/19/2023 11:30 AM [facility] Emergency [facility] Emergency Department [address] [place] [address] Beverley Paige MD [address] [place] [address] Pain in both lower extremities (Primary Dx) Discharge Disposition: Discharge to home or self care Social History Tobacco Use Types Packs/Day Years Used Date Smoking Tobacco: Former Cigarettes - 1999 Vaping Smokeless Tobacco: Never Comments:off and on Alcohol Use Standard Drinks/Week Comments No 0 (1 standard drink = 0.6 oz pur e alcohol) on occasion [facility] Utilities Answer Date Recorded In the past 12 months has [employer], gas, oil, or water [employer] threatened to shut off services in your [...] often do you attend chur ch or yarsani services? Never 09/09/2023 Do you belong to any clubs o r organizations such as adventist groups, unions, fraternal or athletic groups, or school groups? No 09/09/2023 How often do you attend meet ings of the clubs or organizations you belong to? Never 09/09/2023 Are you , , di vorced, , never , or living with a partner? 09/09/2023 AUDIT-C Answer Date Recorded Q1: How often do you have a drink containing alcohol? Never 09/03/2023 Q2: How many drinks containi ng alcohol do you have on a typical day when you are drinking? Patient does not drink Frequency of Binge Drinking Not on file 11/2023 Overall Financial Resource Strain (CARDIA) Answe r [...] No 09/09/2023 Personal Safety Answer Date Recorded Getting School Help Needed Denies 08/10 Comments No Sex and Gender Information Value Date Recorded Sex Assigned at Not on file Legal Sex Female 10:06 AM CONSTRUCTION TRADES CONTRACTOR Gender Identity Female 06/17/2024 7:02 AM CDT Sexual Orientation Not on file documented as of this encounter Last Filed Vital Signs Vital Sign Reading Time Taken Comments Blood Pressure 114/65 09/19/2023 11:00 AM CONSTRUCTION TRADES CONTRACTOR Pulse 56 09/19/2023 11:15 AM CONSTRUCTION TRADES CONTRACTOR Temperature 36.7 ??C (98 ??F) 09/19/2023 8:49 AM CONSTRUCTION TRADES CONTRACTOR Respiratory Rate 13 09/19/2023 11:15 AM CONSTRUCTION TRADES CONTRACTOR Oxygen Saturation 100% 09/19/2023 11:15 AM CONSTRUCTION TRADES CONTRACTOR Inhaled Oxygen Concentration - - Weight 57.6 kg (127 lb) 09/19/2023 8:49 AM CONSTRUCTION TRADES CONTRACTOR Height 162.6 cm (5' 4 ) 09/19/2023 8:49 AM CONSTRUCTION TRADES CONTRACTOR Body Mass Index 21.8 09/19/2023 8:49 AM CONSTRUCTION TRADES CONTRACTOR documented in this encounter Discharge Instructions * Attachments The following attachments cannot be sent through Care Everywhere. * Myalgias (Amharic) * Pain, Acute, Uncertain Cause (Amharic) documented in this encounter Medications at Time [...] esophageal spasms. 90 tablet 3 08/06/2023 4 lubiprostone (AMITIZA) 24 mcg capsule Take [...] or vomiting 20 tablet 3 05/29/[address] (PROTONIX) 40 mg EC tablet Take 1 tablet (40 mg total) by mouth daily 90 tablet 3 04/17/2023 4 SUMAtriptan (IMITREX) 50 mg tabletIndication s:Migraine [...] documented in this encounter ED Notes * Beverley Paige MD - 09/19/2023 11:03 AM CST HPI Chief Complaint Patient presents with Leg Pain Patient is a 53-year-old female with a recent appendectomy about 10 days ago comes to emergency department today for leg pain and a burning sensation since yesterday. Patient states she has had this issue before when she had COVID last year. She denies any other symptoms denies any falls Patient History: Patient Active Problem List Diagnosis Date Noted Chronic abdominal pain 09/09/2023 Iron deficiency anemia [...] Abdominal pain, generalized 08/08/2021 Atrial fibrillation (CMS/HCC) (HCC) 05/15/2020 Essential tremor 10/12/2018 Jerky body movements [...] 2000 Years since quittin.0 Smokeless tobacco: Never Tobacco comments: off and on Vaping Use Vaping Use: Every day Start date: 10/02/2014 Substances: Nicotine, Flavoring Devices: Pre-filled or refillable cartridge, Refillable tank Substance and Sexual Activity Alcohol use: No Comment: on occasion Drug use: Yes Types: Marijuana Comment: occasionally last used 09-02-23 Sexual activity: Defer control/protection: Post-menopausal Social History Social History Narrative Not on file Review of Systems Review of Systems Constitutional: Negative. Negative for activity change, appetite change, chills, diaphoresis, fatigue and fever. HENT: Negative. Negative for congestion, drooling, rhinorrhea and sore throat. Eyes: Negative. Negative for photophobia, redness and visual disturbance. Respiratory: Negative. Negative for cough, chest tightness and shortness of breath. Cardiovascular: Negative. Negative for chest pain, palpitations and leg swelling. Gastrointestinal: Negative. Negative for abdominal pain, anal bleeding, blood in stool, constipation, diarrhea, nausea and vomiting. Endocrine: Negative. Genitourinary: Negative. Negative for decreased urine volume, difficulty urinating, dysuria, frequency, hematuria and urgency. Musculoskeletal: Positive for myalgias (bilateral lower extremity). Negative for arthralgias. Skin: Negative. Negative for rash and wound. Allergic/Immunologic: Negative for immunocompromised state. Neurological: Negative. Negative for dizziness, weakness and headaches. Hematological: Negative. Does not bruise/bleed easily. Psychiatric/Behavioral: Negative. Negative for confusion. All other systems reviewed and are negative. Physical Exam ED Triage Vitals [09/19/23 0849] Temp Pulse Resp BP SpO2 36.7 ??C (98 ??F) 67 14 122/75 100 % Temp src Heart Rate Source Patient Position BP Location FiO2 (%) Temporal -- -- -- -- Height Height Method Weight Weight Method 1.626 m (5' 4 ) Stated 57.6 kg (127 lb) Stated Physical Exam Vitals and nursing note reviewed. Constitutional: General: She is not in acute distress. Appearance: She is well-developed. She is not ill-appearing, toxic-appearing or diaphoretic. HENT: Head: Normocephalic and atraumatic. Eyes: General: No scleral icterus. Extraocular Movements: Extraocular movements intact. Conjunctiva/sclera: Conjunctivae normal. Pupils: Pupils are equal, round, and reactive to light. Neck: Thyroid: No thyromegaly. Vascular: No JVD. Trachea: No tracheal deviation. Cardiovascular: Rate and Rhythm: Normal rate. Pulmonary: Effort: Pulmonary effort is normal. No respiratory distress. Breath sounds: No stridor. No wheezing or rhonchi. Abdominal: General: Abdomen is flat. There is no distension. Palpations: Abdomen is soft. There is no mass. Tenderness: There is no abdominal tenderness. Hernia: No hernia is present. Musculoskeletal: General: Normal range of motion. Cervical back: Normal range of motion and neck supple. Right lower leg: No edema. Left lower leg: No edema. Skin: General: Skin is warm and dry. Neurological: General: No focal deficit present. Mental Status: She is alert and oriented to person, place, and time. Mental status is at baseline. Motor: No abnormal muscle tone. Psychiatric: Mood and Affect: Mood normal. Behavior: Behavior normal. Thought Content: Thought content normal. Judgment: Judgment normal. MDM NIH Score Medical Decision Making Amount and/or Complexity of Data Reviewed Labs: ordered. Radiology: ordered. ECG/medicine tests: ordered. Risk Prescription drug management. Final diagnoses: Pain in both lower extremities There may be grammatical errors in this note due to use of voice recognition software. DISPOSITION:DISCHARGED Beverley Paige MD 09/19/23 1120 TRUCTION TRADES CONTRACTOR * Lilian Prajapati RN - 09/19/2023 8:48 AM CST Patient to ED c/o bilateral leg pain that started last night. Patient denies injury. Reports recentlow back pain. TRUCTION TRADES CONTRACTOR documented in this encounter Plan of Treatment Upcoming Encounters Date Type Department Care Team (Latest Contact Info) Description 09/07/2024 8:30 AM CONSTRUCTION TRADES CONTRACTOR Hospital Encounter [facility] [address] [place] [phone] Forest Catherine MD [address] [address] 09/07/2024 8:30 AM CONSTRUCTION TRADES CONTRACTOR - 09/07/2024 9:00 AM CONSTRUCTION TRADES CONTRACTOR Surgery [facility] [address] [place] [phone] Forest Catherine MD [address] [address] EGD w/Endo Flip & YI placement Scheduled Procedures Name Priority Associated Diagnoses Date/Ti me ESOPHAGOGASTRODUODENOSCOPY Hiatal hernia Gastroesophageal reflux disease, unspecified whether esophagitis present 09/07/2024 8:30 AM CONSTRUCTION TRADES CONTRACTOR documented as of this encounter Procedures Procedure Name Priority Date/Time Associated Diagnosis Comments CT ABDOMEN PELVIS W CONTRAST ED 09/19/2023 10:39 AM CONSTRUCTION TRADES CONTRACTOR TROPONIN T HIGH-SENSITIVITY SERIES (BASELINE, 2HR, 4HR, 6HR) STAT 09/19/2023 10:05 AM CONSTRUCTION TRADES CONTRACTOR INFLUENZA A/B, RSV, AND COVID-19 PCR Routine 09/19/2023 10:05 AM CONSTRUCTION TRADES CONTRACTOR SEPSIS LACTATE WITH REFLEX STAT 09/19/2023 10:05 AM CONSTRUCTION TRADES CONTRACTOR EGFR STAT 09/19/2023 10:05 AM CONSTRUCTION TRADES CONTRACTOR DIFFERENTIAL AUTO STAT 09/19/2023 10: 05 AM CONSTRUCTION TRADES CONTRACTOR CBC WITH AUTO DIFFERENTIAL STAT 09/19/2023 10:05 AM CONSTRUCTION TRADES CONTRACTOR PROTIME-INR STAT 09/19/2023 10:05 AM CONSTRUCTION TRADES CONTRACTOR CREATINE KINASE (CK), TOTAL STAT 09/19/2023 10:05 AM CONSTRUCTION TRADES CONTRACTOR COMPREHENSIVE METABOLIC PANEL STAT 09/19/2023 10:05 AM CONSTRUCTION TRADES CONTRACTOR XR CHEST 1 VIEW ED 09/19/2023 10:01 AM CONSTRUCTION TRADES CONTRACTOR ECG 12-LEAD STAT 09/19/2023 9:55 AM CONSTRUCTION TRADES CONTRACTOR documented in this encounter Results * CT Abdomen Pelvis W Contrast (09/19/2023 10:39 AM CONSTRUCTION TRADES CONTRACTOR) Anatomical Region Laterality Modality Body N/A Computed Tomogra phy 09/19/2023 10:4 2 AM CONSTRUCTION TRADES CONTRACTOR Narrative 09/19/2023 10:46 AM CONSTRUCTION TRADES CONTRACTOR EXAM DESCRIPTION: ?? CT ABDOMEN PELVIS W CONTRAST REASON FOR STUDY: ?? Abdominal pain, acute, nonlocalized, Pain ?? Pt had appendix removed ten days ago and now having numbness and burning sensations down both legs ??other surgery hx: GB ?? TECHNIQUE: CT scan of the abdomen and pelvis performed with intravenous and ?? without ??oral contrast using helical scanning technique with dynamic intravenous contrast injection. Reconstructed coronal and sagittal MPR images reviewed. All images stored on PACS. Automated exposure control was used as a dose optimization technique for this examination. CONTRAST TYPE/DOSE: ?? 75mL of IOVERSOL 350 MG IODINE/ML INTRAVENOUS SYRINGE ?? injected via ?? intravenous COMPARISON: ?? 09/09/2023 REFERENCE: Per ACR white paper recommendations, unless otherwise specified no follow-up imaging is recommended for incidental renal and adrenal lesions per consensus recommendations based on imaging criteria. Further lab evaluation could be pursued based on clinical findings. FINDINGS: LOWER CHEST: ??Lung bases are clear. ??Heart size normal. ??No effusion. LIVER/BILIARY: ??Liver unremarkable. ?? Biliary tree normal in caliber. GALLBLADDER: ??Absent. SPLEEN: ??Normal. PANCREAS: ??Normal. ADRENAL GLANDS: ??Normal. KIDNEYS/URINARY TRACT: ??Small cyst upper pole right kidney. ??Mild symmetric renal atrophy suggests prior obstruction or infection. ??Ureters and bladder appear normal. ?? GI: ??Stomach and small bowel appear normal. ??Colon unremarkable. ??Appendix not seen. ?? OTHER ABDOMINAL/PELVIS: ??Major vascular structures are grossly patent and normal in caliber. ??No enlarged lymph node or free fluid. ??Trace pelvic edema. MSK: ??Moderate facet arthropathy, mild disc disease. ??Mild hip and SI joint arthrosis. ?? BODY WALL: ??Small amount of subcutaneous edema in the left lower quadrant suggests a trocar site. ?? IMPRESSION: No abscess or other acute postoperative complication identified. ??Trace pelvic edema. ?? THIS IS AN ELECTRONICALLY VERIFIED FINAL REPORT 09/19/2023 10:46 AM - Electronically signed by ??Boone Hernandez M.D. AR: GRAEME D: ??09/19/2023 10:46 AM T: ??09/19/2023 10:46 AM Report ID: [id number] Reading Location: ??[id number] Procedure Note Boone Hernandez MD - 09/19/2023 EXAM DESCRIPTION: CT ABDOMEN PELVIS W CONTRAST REASON FOR STUDY: Abdominal pain, acute, nonlocalized, Pain Pt had appendix removed ten days ago and now having numbness and burning sensations down both legs other surgery hx: GB TECHNIQUE: CT scan of the abdomen and pelvis performed with intravenousand without oral contrast using helical scanning technique with dynamic intravenous contrast injection. Reconstructed coronal and sagittal MPRimages reviewed. All images stored on PACS. Automated exposure control was usedas a dose optimization technique for this examination. CONTRAST TYPE/DOSE: 75mL of IOVERSOL 350 MG IODINE/ML INTRAVENOUSSYRINGE injected via intravenous COMPARISON: 09/09/2023 REFERENCE: Per [...] TRACT: Small cyst upper pole right kidney. Mildsymmetric renal atrophy suggests prior obstruction or infection. Ureters andbladder appear normal. GI: Stomach and small bowel appear normal. Colon unremarkable. Appendixnot seen. OTHER ABDOMINAL/PELVIS: Major vascular structures are grossly patent and normal in caliber. No enlarged lymph node or free fluid. Trace pelvicedema. MSK: Moderate facet arthropathy, mild disc disease. Mild hip and SIjoint arthrosis. BODY WALL: Small amount of subcutaneous edema in the left lower quadrant suggests a trocar site. IMPRESSION: No abscess or other acute postoperative complication identified. Tracepelvic edema. THIS IS AN ELECTRONICALLY VERIFIED FINAL REPORT 09/19/2023 10:46 AM - Electronically signed by Boone Hernandez M.D. AR: GRAEME Report ID: [id number] Reading Location: [place] [address] Beverley Paige MD IMG CT PROCEDURES F inal Result * eGFR (09/19/2023 10:05 AM CONSTRUCTION TRADES CONTRACTOR) eGFR 99 mL/min/1. 73 m2 [facility] ([place]) Comment: [...] interpretive data was last reviewed 2021. Blood 09/19/2023 10:0 5 AM CONSTRUCTION TRADES CONTRACTOR 09/19/2023 10:09 AM CONSTRUCTION TRADES CONTRACTOR us Beverley Paige MD LAB BLOOD ORDERABLE S Final Result [facility] ([place]) 1 [facility] Department [place] [address] * Differential, auto (09/19/2023 10:05 AM CONSTRUCTION TRADES CONTRACTOR) Neutrophil abs 3.6 1.5 - 6.5 K/cumm [facility] ([place]) Imm gran abs 0.0 0.0 - 0.1 K/cumm [facility] ([place]) Lymphocyte abs 1.2 0.8 - 3.3 K/cumm [facility] ([place]) Monocyte abs 0.5 0.2 - 0.8 K/cumm [facility] ([place]) Eosinophil abs 0.1 0.0 - 0.5 K/cumm [facility] ([place]) Basophil abs 0.0 0.0 - 0.1 K/cumm [facility] ([place]) Neutrophil pct 66.4 % [facility] ([place] Comment: Interpretive Data Percent cell count reference ranges are not reported, since discordance with absolute values may lead to misinterpretation of CBC data. Current Interpretive Data was last revised on 2017. Imm gran pct 0.4 % [facility] ([place]) Comment: Interpretive Data Percent cell count reference ranges are not reported, since discordance with absolute values may lead to misinterpretation of CBC data. Current Interpretive Data was last revised on 2017. Lymphocyte pct 22.9 % [facility] ([place]) Comment: Interpretive Data Percent cell count reference ranges are not reported, since discordance with absolute values may lead to misinterpretation of CBC data. Current Interpretive Data was last revised on 2017. Monocyte pct 8.6 % [facility] ([place]) Comment: Interpretive Data Percent cell count reference ranges are not reported, since discordance with absolute values may lead to misinterpretation of CBC data. Current Interpretive Data was last revised on 2017. Eosinophil pct 1.1 % [facility] ([place]) Comment: Interpretive Data Percent cell count reference ranges are not reported, since discordance with absolute values may lead to misinterpretation of CBC data. Current Interpretive Data was last revised on 2017. Basophil pct 0.6 % [facility] ([place]) Comment: Interpretive Data Percent cell count reference ranges are not reported, since discordance with absolute values may lead to misinterpretation of CBC data. Current Interpretive Data was last revised on 2017. Blood 09/19/2023 10:0 5 AM CONSTRUCTION TRADES CONTRACTOR 09/19/2023 10:09 AM CONSTRUCTION TRADES CONTRACTOR us Beverley Paige MD LAB BLOOD ORDERABLE S Final Result [facility] ([place]) [address] [facility] Department [place] [address] * Influenza A/B, RSV, and COVID-19 PCR Nasopharyngeal (09/19/2023 10:05 AM CONSTRUCTION TRADES CONTRACTOR) COVID-19 RNA Negative Negative [facility] ([place]) Influenza A RNA Negative Negative [facility] Influenza B RNA [facility] RSV RNA Negative Negative [facility] Comment: Interpretive data: Testing performed by [facility]. This test is performed using the [employer] Xpert Xpress CoV-2/Flu/RSV plus assay. This is a multiplex, real- time reverse transcriptase PCR assay intended for the qualitative detection of nucleic acid from SARS-CoV-2, influenza A, influenza B, and respiratory syncytial virus. This assay has been cleared by the [place] Food and Drug administration. The performance characteristics have been verified by the [facility]. ?? Results must be considered in the clinical context, and a negative result does not rule out infection. Interpretive Data last revised 2023 Nasopharyngeal 09/19/2023 10 :05 AM CONSTRUCTION TRADES CONTRACTOR 09/19/2023 10:09 AM CONSTRUCTION TRADES CONTRACTOR Narrative [facility] - 09/19/2023 11:00 AM CONSTRUCTION TRADES CONTRACTOR Is the Patient experiencing symptoms consistent with COVID?->Yes Beverley Paige MD LAB MICROBIOLOGY - GENERAL ORDERABLES Final Result [facility] ([place] [address] [facility] Department [place] [address] * Creatine kinase (CK), total (09/19/2023 10:05 AM CONSTRUCTION TRADES CONTRACTOR) CK 60 30 - 200 Units/L [facility] ([place]) Blood 09/19/2023 10:0 5 AM CONSTRUCTION TRADES CONTRACTOR 09/19/2023 10:09 AM CONSTRUCTION TRADES CONTRACTOR Beverley Paige MD LAB BLOOD ORDERABLE S Final Result Performing Organization Address City/[facility]/ZIP Co de Phone Number [facility] ([place]) [address] [place] [address] Department [place] [address] * (ABNORMAL) Protime-INR (09/19/2023 10:05 AM CONSTRUCTION TRADES CONTRACTOR) PT 19.0(H) 10.3 - 13.7 sec [facility] ([place]) INR 1.67(H) 0.90 - 1.20 [facility] ([place]) Comment: Interpretive data Oral anticoagulant therapeutic ranges: Venous thromboembolism prophylaxis or treatment: 2.0-3.0 CARDIOLOGY Standard range: 2.0-3.0 High-intensity range: 2.5-3.5 Refer to indication-specific guidelines for appropriate target ranges for prosthetic heart valve replacement. Current interpretive data was last revised on 2019. Blood 09/19/2023 10:0 5 AM CONSTRUCTION TRADES CONTRACTOR 09/19/2023 10:09 AM CONSTRUCTION TRADES CONTRACTOR Beverley Paige MD LAB BLOOD ORDERABLE S Final Result Performing Organization Address [facility] Co de Phone Number [facility] ([place] [address] [place] [address] * Sepsis Lactate w/ Reflex (09/19/2023 10:05 AM CONSTRUCTION TRADES CONTRACTOR) Sepsis Lactate 1.0 0.7 - 2.0 mmol/L [facility]) Blood 09/19/2023 10:0 5 AM CONSTRUCTION TRADES CONTRACTOR 09/19/2023 10:09 AM CONSTRUCTION TRADES CONTRACTOR Result [facility] Beverley Paige MD LAB BLOOD ORDERABLE S Final Result Performing Organization Address [facility] de Phone Number [facility] ([place] [address] [place] [address] * Troponin T high-sensitivity series (baseline, 2hr, 4hr, 6hr) (09/19/2023 10:05 AM CONSTRUCTION TRADES CONTRACTOR) Trop T hs <6 <=14 ng/L [facility] ([place] Comment: Interpretive Data For further hscTnT resources including the diagnostic algorithm and an aid in interpretation, copy and paste this link: https://nrl.testcatalog.org/show/hsTrop Current Interpretive Data last revised 2020. Blood 09/19/2023 10:0 5 AM CONSTRUCTION TRADES CONTRACTOR 09/19/2023 10:09 AM CONSTRUCTION TRADES CONTRACTOR Beverley Paige MD LAB BLOOD ORDERABLE S Final Result Performing Organization Address [facility] Co de Phone Number [facility] ([place] 1 [facility] [place] [address] * Comprehensive metabolic panel (09/19/2023 10:05 AM CONSTRUCTION TRADES CONTRACTOR) Sodium 142 135 - 145 mmol/L [facility] ([place]) Potassium, pl 4.0 3.3 - 4.9 mmol/L [facility] ([place]) Chloride 106 97 - 110 mmol/L [facility] ([place]) CO2 28 22 - 32 mmol/L [facility] ([place]) Anion gap 8 2 - 15 mmol/L [facility] ([place]) BUN 9 6 - 25 mg/dL [facility] ([place]) Creatinine 0.72 0.60 - 1.10 mg/dL [facility] ([place]) Glucose 95 70 - 199 mg/dL [facility] ([place]) Comment: Interpretive Data Fasting glucose >/= 126 [...] interpretive data was last revised 2022. Calcium 9.7 8.5 - 10.3 mg/dL [facility] ([place]) Bilirubin, total 0.4 0.1 - 1.2 mg/dL [facility] ([place]) Protein, pl 7.6 6.5 - 8.5 g/dL [facility] ([place]) Albumin 4.5 3.5 - 5.0 g/dL [facility] ([place]) Alk phos 90 40 - 130 Units/L [facility]) ALT 25 7 - 45 Units/L [facility]) AST 26 10 - 45 Units/L [facility] ([place]) Blood 09/19/2023 10:0 5 AM CONSTRUCTION TRADES CONTRACTOR 09/19/2023 10:09 AM CONSTRUCTION TRADES CONTRACTOR us Beverley Paige MD LAB BLOOD ORDERABLE S Final Result [facility] ([place]) [address] [facility] Department [place] [address] * (ABNORMAL) CBC with auto differential (09/19/2023 10:05 AM CONSTRUCTION TRADES CONTRACTOR) WBC 5.4 3.8 - 9.9 K/cumm [facility] ([place]) Hgb 11.5(L) 11.9 - 15.5 g/dL [facility] ([place]) Hct 36.6 35.6 - 45.5 % [facility] ([place]) Plt 334 150 - 400 K/cumm [facility] ([place]) MPV 10.6 9.1 - 12.3 fL [facility]) RBC 4.18 3.90 - 5.20 M/cumm [facility] ([place]) MCV 87.6 81.3 - 96.4 fL [facility] ([place]) MCH 27.5 27.1 - 33.3 pg [facility] ([place]) MCHC 31.4(L) 32.3 - 35.7 g/dL [facility] ([place]) RDW CV 21.0(H) 11.1 - 14.9 % [facility] ([place]) RDW SD 65.4(H) 35.7 - 48.1 fL [facility] ([place]) NRBC abs 0.00 0.00 - 0.01 K/cumm [facility] ([place]) Blood 09/19/2023 10:0 5 AM CONSTRUCTION TRADES CONTRACTOR 09/19/2023 10:09 AM CONSTRUCTION TRADES CONTRACTOR us Beverley Paige MD LAB BLOOD ORDERABLE S Final Result [facility] ([place] [address] [facility] Department [place] [address] * XR Chest 1 Vw Portable (09/19/2023 10:01 AM CONSTRUCTION TRADES CONTRACTOR) Anatomical Region Laterality Modality Body, Chest N/A Computed Radiogr aphy 09/19/2023 10:4 1 AM CONSTRUCTION TRADES CONTRACTOR Narrative 09/19/2023 10:42 AM CONSTRUCTION TRADES CONTRACTOR EXAM DESCRIPTION: XR CHEST 1 VIEW REASON FOR STUDY: chest pain ?? Patient to ED c/o bilateral leg pain that started last night. Patient denies injury. Reports recent low back pain ? TECHNIQUE: ??Portable upright AP view of the chest. COMPARISON: 01/01/2023 FINDINGS: LUNGS AND PLEURA: ??No focal opacity, large effusion, or pneumothorax identified. HEART/MEDIASTINUM: ??Trachea midline. ?? Cardiac silhouette normal in size. Mediastinal contours appear normal. BONES: ??Unremarkable. ?? CHEST WALL: ??Unremarkable. ?? UPPER ABDOMEN: ??Unremarkable. ?? IMPRESSION: No acute abnormality identified. ?? THIS IS AN ELECTRONICALLY VERIFIED FINAL REPORT 09/19/2023 10:42 AM - Electronically signed by ??Boone Hernandez M.D. AR: [email or web address] D: ??09/19/2023 10:42 AM T: ??09/19/2023 10:42 AM Report ID: [id number] Reading Location: ??[id number] Procedure Note Boone Hernandez MD - 09/19/2023 EXAM DESCRIPTION: XR CHEST 1 VIEW REASON FOR STUDY: chest pain Patient to ED c/o bilateral leg pain that started last night. Patientdenies injury. Reports recent low back pain TECHNIQUE: Portable upright AP view of the chest. COMPARISON: 01/01/2023 FINDINGS: LUNGS AND PLEURA: No focal opacity, large effusion, or pneumothorax identified. HEART/MEDIASTINUM: Trachea midline. Cardiac silhouette normal in size. Mediastinal contours appear normal. BONES: Unremarkable. CHEST WALL: Unremarkable. UPPER ABDOMEN: Unremarkable. IMPRESSION: No acute abnormality identified. THIS IS AN ELECTRONICALLY VERIFIED FINAL REPORT 09/19/2023 10:42 AM - Electronically signed by Boone Hernandez M.D. AR: [email or web address] Report ID: [id number] Reading Location: [id number] Beverley Paige MD IMG XR PROCEDURES F inal Result * ECG 12 lead (09/19/2023 9:55 AM [employer]) 09/19/2023 9:55 AM [employer] Narrative [facility] - 09/19/2023 12:26 PM [employer] Vent Rate: 63 bpm RR Interval: 939 msec MT Interval: 173 msec QRS Duration: 77 msec QT Interval: 403 msec QTC Interval: 411 msec P-R-T [employer]: 65 - 38 - 45 degrees IMPRESSION: SINUS RHYTHM NORMAL ECG NO CHANGE FROM PREVIOUS TRACING NOTED Electronically Signed By: Arnaldo Yan MD us Beverley Paige MD ECG ORDERABLES Fin al Result [facility] documented in this encounter Visit Diagnoses Diagnosis Pain in both lower extremities- Primary Hiatal hernia Diaphragmatic hernia without mention of obstruction or gangrene Gastroesophageal reflux disease, unspecified whether esophagitis present documented in this encounter Administered Medications Inactive Administered Medications - up to 3 most recent administrations Medication Order MAR Action Action Date Dose Rate Site HYDROcodone-acetaminophen (NORCO) 5-325 mg per tablet 2 tablet 2 tablet, oral, Once, On 09/19/23 at 0947, For 1 dose, Indications: PainIndications:Pain Given 09/19/2023 10:08 AM [employer] 2 tablets ioversoL (OPTIRAY 350) syringe 75 mL 75 mL, intravenous, Once in imaging, contrast, Starting on 09/19/23 at 1037, For 1 dose Contrast Given 09/19/2023 10:39 AM [employer] 75 mL documented in this encounter Active and Recently Administered Medications Times are shown in [employer]. Scheduled Medication Order 09/17/2023 09/18/2023 09/19/2023 HYDROcodone-acetaminophen (NORCO) 5-325 mg per tablet 2 tablet (COMPLETED) 2 tablet, oral, Once, On 09/19/23 at 0947, For 1 dose, Indications: Pain 1008 (Given - Provid er: Narda Foss RN) PRN Medication Order 09/17/2023 09/18/2023 09/19/2023 ioversoL (OPTIRAY 350) syringe 75 mL (COMPLETED) 75 mL, intravenous, Once in imaging, contrast, Starting on 09/19/23 at 1037, For 1 dose 1039 (Contrast Given - Provider: Naz Quinteros RT) documented in this encounter Orders Nursing Count Last Ordered Date First Orde red Date CONTINUOUS PULSE OXIMETRY 1 09/19/2023 documented in this encounter Additional Health Concerns Infection Onset Date Last Indicated Resolved Time COVID: Suspected 09/19/2023 09/19/2023 09/19/2023 11:01 AM [employer] documented as of this encounter Care Teams [employer] Relationship Specialty Start Date End Date Parmjit Dai MD PCP - General 12/31/20 Mere Landa NP Nurse Practitioner 02/07/20 Tico Burton MD Surgeon General Surgery 08/09/21 Ivan Liang MD Consulting Physician General Surgery 09/09/23 documented as of this encounter
--- OUTSIDE RECORDS SUMMARY | 2024-08-16 04:32 | XMS_ITS | Encounter Summary ---
Author Organization [facility] Healthcare Address [address] [place] [address] Care Team Providers Care Optometrist President/Practice Owner Name Role Phone Mere Landa NP Unavailable [phone] Parmjit Dai MD Primary Care Provider [phone] Tico Burton MD Unavailable [phone] Ivan Liang MD Unavailable Reason for Visit * Reason Comments Follow-up Patient is here toda y for a 3 month follow up for IBS-C/D. Constipation Patient reports havi ng frequent constipation. Patient states she can go 2-3 days without a BM. Encounter Details Date Type Department Care Team (Latest Contact Info) Description 09/24/2023 8:00 AM POLICY WRITER TYPIST Office Visit [facility] at [address] [place] [address] Richard Bowman NP [address] [place] [address] [address] [place] [address] Irritable bowel syndrome with both constipation and diarrhea (Primary Dx); Slow transit constipation; Small intestinal bacterial overgrowth (SIBO); Chronic nausea; Gastroesophageal reflux disease with esophagitis without hemorrhage; Chronic superficial gastritis without bleeding; History of repair of hiatal hernia; Tubular adenoma of colon; Esophageal dysmotility Social History Tobacco Use Types Packs/Day Years Used Date Smoking Tobacco: Former Cigarettes 1 984 - 1999 Vaping Smokeless Tobacco: Never Tobacco Cessation:Counseling Given: Not Answered Comments:off and on Alcohol Use Standard Drinks/Week Comments No 0 (1 standard drink = 0.6 oz pur e alcohol) on occasion [facility] Utilities Answer Date Recorded In the [...] often do you attend chur ch or christian services? Never 09/09/2023 Do you belong to any clubs o r organizations such as christianity groups, unions, fraternal or athletic groups, or [...] place to sleep or slept in a penitentiary (including now)? No 09/09/2023 Personal Safety Answer Date Recorded Getting School Help Needed Denies 08/10 Comments No Sex and Gender Information Value Date Recorded Sex Assigned at Not on file Legal Sex Female 10:06 AM POLICY WRITER TYPIST Gender Identity Female 06/17/2024 7:02 AM CDT Sexual Orientation Not on file documented as of this encounter Last Filed Vital Signs Vital Sign Reading Time Taken Comments Blood Pressure 101/64 09/24/2023 8:18 AM POLICY WRITER TYPIST Pulse 68 09/24/2023 8:18 AM POLICY WRITER TYPIST Temperature - - Respiratory Rate - - Oxygen Saturation - - Inhaled Oxygen Concentration - - Weight 58.9 kg (129 lb 12.8 oz) 09/24/2023 8:18 AM POLICY WRITER TYPIST Height 162.6 cm (5' 4 ) 09/24/2023 8:18 AM POLICY WRITER TYPIST Body Mass Index 22.28 09/24/2023 8:18 AM POLICY WRITER TYPIST documented in this encounter Patient Instructions * Patient Instructions* Richard Bowman NP - 09/24/2023 8:00 AM POLICY WRITER TYPIST The only changes I recommend making today are adding lactulose as needed. You can take 15-30 mL up to twice daily as needed when on day 2-3 without a good bowel movement. It should help you have a bowel movement within a few hours, but do not be surprised if it causes some short term diarrhea. If you seem to get any excessive gas production with the lactulose, take a dose of Gas-X/simethicone each time you take it. CY WRITER TYPIST CY WRITER TYPIST documented in this encounter Ordered Prescriptions Prescription Sig Dispense Quantity Refills Last Filled Start Date End Date lactulose solution 10 gram/15mL Take 15-30 mls 1-2 times daily as needed for problematic constipation. 473 mL 2 09/24/2023 4 documented in this encounter Progress Notes * Richard Bowman NP - 09/24/2023 8:00 AM CST Images from the original note were not included. PATIENT DEMOGRAPHICS Sarahy Gill is a 53 y.o. White female. PATIENT'S CARE TEAM Patient Care Team: Parmjit Dai MD as PCP - Mere Orellana NP (Nurse Practitioner) Tico Burton MD as Surgeon (General Surgery) Ivan Liang MD as Consulting Physician (General Surgery) CHIEF COMPLAINT Chief Complaint Patient presents with Follow-up Patient is here today for a 3 month follow up for IBS-C/D. Constipation Patient reports having frequent constipation. Patient states she can go 2-3 days without a BM. HPI/ROS New or existing patient visit: Existing. Weight is down 12 lb since last office visit with me on 06/08. Eats less when she is not feeling well from a GI standpoint. Referring Provider: Parmjit Dai MD Nkechi is here today for routine GI follow up on chronic IBS that is constipation predominant with likely a component of SIBO. Has a history of colitis that resolved with antibiotics (early 2022). Since last office visit, 06/08, she has realized MiraLax and senna/docusate make her sick after she takes the so she has been avoiding them. This helps her to have less nausea/vomiting. She continues on Amitiza/lubiprostone 24 mcg b.i.d.. She has Bentyl/dicyclomine 20 mg to use as needed when cramping is severe, but she only truly takes it as needed when cramping is severe since it can contribute to constipation by relaxing the colon. She continues to intermittently have nausea/vomiting and abdominal pain. No melena. Occasionally has blood on the stool and with wiping whenever her constipation bel little more severe, likely from hemorrhoids. No rectal pain. She has had a good bowel movement yesterday and today so for the last few days she has really been feeling well. However, even with the A mitiza/lubiprostone on board she will still go 2-3 days without a good bowel movement and that is whenever she feels much worse from a GI standpoint. She does intermittently have diarrhea issues, especially with laxative use. She does use Gas-X as needed with positive benefit. She uses Zofran as needed with positive benefit. She has been also started on nortriptyline and has been up titrated to 25 mg at HS. She has chronic dysphagia and takes baclofen 5-10 mg 10-15 minutes before eating with positive benefit. Heartburn and reflux are well controlled on Protonix 40 mg daily and famotidine 20 mg daily as needed. (History hiatal hernia repair). She is chronically anticoagulated on Eliquis. No NSAID use. No alcohol use. Nonsmoker. No drug use. Former smoker. Vapes nicotine. Denies alcohol and drug use other than occasional marijuana use. * Will keep in mind that at one point we tried doxycycline to cover for SIBO and it did not help, but the Rifaximin did..., but made constipation worse... Gastric emptying study is scheduled for 10/20/2023. EGD in early showed mild chronic inactive gastritis and reflux esophagitis changes. Repeat EGD 08/21/2023 with benign hyperplastic polyp removed. Esophageal biopsy was normal. Stomach biopsy showed mild chronic inactive gastritis without H pylori, intestinal metaplasia, or dysplasia. 09/19/2023-CT of the abdomen and pelvis with IV contrast: No concerning findings noted. Trace pelvic edema seen. No postop appendectomy complications noted. 09/09/2023-appendectomy with Dr. Liang with pathology report revealing benign appendix with impacted fecal material and focal acute inflammation consistent with early acute appendicitis. 09/09/2023 CT of the abdomen and pelvis with IV contrast: IMPRESSION: Persistent ascending colonic wall thickening mucosal hyperenhancement compared to 08/19/2023. This finding is new compared to 09/04/2022. These findings are most compatible with colitis. However given persistence since 08/19/2023, underlying mass can not be excluded. Recommend follow-up colonoscopy when clinically feasible if not recently performed for further evaluation. Normal appendix. 08/19/2023-CTA of the abdomen and pelvis with [...] seen. Mild tertiary non pulsatile esophageal contractions seen. 10/29/2022-colonoscopy completed. 5 mm tubular adenoma removed from the transverse colon. Mild diverticulosis seen in the sigmoid colon. No obvious inflammatory changes. Random colon biopsy normal. Small internal hemorrhoids noted. Advised to repeat in four years. Gallbladder previously surgically removed. Celiac screening negative in 2022. Current Outpatient Medications Medication Sig Dispense Refill albuterol HFA (PROVENTIL HFA,VENTOLIN HFA,PROAIR HFA) 90 mcg/actuation inhaler 2 puffs every 4 (four) hours as needed apixaban (ELIQUIS) 5 mg tablet Take 1 tablet (5 mg total) by mouth 2 (two) times a day atorvastatin (LIPITOR) 40 mg tablet Take 1 tablet (40 mg total) by mouth daily 30 tablet 1 baclofen (LIORESAL) 10 mg tablet Take 1/2-1 [...] MOUTH TWICE DAILY. START TAKING SATURDAY 07/07 lubiprostone (AMITIZA) 24 mcg capsule Take 1 [...] total) by mouth daily 90 tablet 3 SUMAtriptan (IMITREX) 50 mg tablet Take 1 tablet (50 mg total) by mouth once as needed for migraineMay repeat dose once in 2 hours if no relief. Do not exceed 2 doses in 24 hours. lactulose solution 10 gram/15mL Take 15-30 mls 1-2 times daily as needed for problematic constipation. 473 mL 2 No current facility-administered medications for this visit. PHYSICAL EXAM BP 101/64 (BP Location: Left arm, Patient Position: Sitting) Pulse 68 Ht 162.6 cm (5' 4 ) Wt 58.9 kg (129 lb 12.8 oz) BMI 22.28 kg/m?? No LMP recorded. Patient is postmenopausal. Positive responses are italicized. Constitutional: No acute distress/sickly appearance. Eyes: No scleral icterus. Cardiovascular: Normal rate and regular rhythm; no murmur heard; no leg edema. Pulmonary: Pulmonary effort and breath sounds normal. Abdominal: Bowel sounds active; abdomen is soft/non-distended. No abdominal tenderness; no rebound;no guarding. No obvious hernia identified. Skin: No jaundice or significant pallor. No rash. Neurological: Alert and oriented to person, place, time. Psychiatric: Mood/behavioral normal. TESTS/LABS/PROCEDURES (not all inclusive) 09/19/23- CT abd/pelvis with IV contrast: FINDINGS: LOWER CHEST: Lung bases are clear. [...] acute postoperative complication identified. Trace pelvic edema. 09/09/23- Appendectomy with Dr. Liang: Diagnosis: A. Appendix, laparoscopic appendectomy: Benign appendix with impacted fecal material and focal acute inflammation Consistent with early acute appendicitis 09/09/23- CT abd/pelvis with IV contrast: FINDINGS: LOWER CHEST: No significant pulmonary abnormalities. No effusion. LIVER: Normal size. No identified cystic or solid masses. GALLBLADDER: Surgically absent. BILE DUCTS: No intrahepatic or extrahepatic ductal dilatation. SPLEEN: Normal size. No focal lesions. PANCREAS: No identified cystic or solid masses. No significant calcifications. No adjacent inflammation or peripancreatic fluid collections. Pancreatic duct not dilated. ADRENALS: Normal. KIDNEYS/URINARY TRACT: Kidneys enhance symmetrically. Redemonstrated right upper pole cystic lesion similar in size compared to prior examination. Left kidney has a normal CT appearance. No hydronephrosis. Urinary bladder is unremarkable. GI: There is persistent colonic wall thickening ascending colon mucosal hyperenhancement compared to 08/19/2023. This finding is new compared to 09/04/2022. The appendix is normal. There is a 2 mm appendicolith in the distal portion of the appendix. PERITONEUM: No ascites or free air. RETROPERITONEUM: No mass or adenopathy. REPRODUCTIVE: No significant abnormality. VASCULATURE: No abdominal aortic aneurysm. MUSCULOSKELETAL: No acute findings. Mild multilevel degenerative intervertebral disc height loss. There is dextroscoliosis. OTHER: No other abnormality. IMPRESSION: Persistent ascending colonic wall thickening mucosal hyperenhancement compared to 08/19/2023. This finding is new compared to 09/04/2022. These findings are most compatible with colitis. However given persistence since 08/19/2023, underlying mass can not be excluded. Recommend follow-up colonoscopy when clinically feasible if not recently performed for further evaluation. Normal appendix. 08/21/2023-EGD with Dr. Sorto: A single benign gastric polyp was resected and retrieved. Chronic gastritis changes noted. Mild esophageal dysmotility noted she was biopsied and dilated. Diagnosis: A. Gastric polyp, biopsy: - Consistent with hyperplastic polyp. - Negative for intestinal metaplasia and dysplasia. B. Esophagus, biopsy: - Fragments of benign squamous epithelium. C. Stomach, biopsy: - Antral type gastric mucosa showing mild chronic inactive gastritis. - Negative for intestinal metaplasia and dysplasia. - Negative for Helicobacter. 08/19/23- CTA abd/pelvis: FINDINGS: VASCULATURE: No dissection, aneurysm, intramural hematoma, rupture, or penetrating atherosclerotic ulcer. No large vessel occlusion. CELIAC TRUNK: There is a relative mild narrowing of the proximal celiac artery with slight post stenotic dilatation. This is best appreciated on sagittal image 55 and 56. This is of uncertain clinical significance. SUPERIOR MESENTERIC ARTERY: No flow limiting stenosis, dissection, or aneurysm. RIGHT RENAL ARTERY: No flow limiting stenosis, dissection, or aneurysm.. LEFT RENAL ARTERY: No flow limiting stenosis, dissection, or aneurysm. Duplicated right renal artery. INFERIOR MESENTERIC ARTERY: No flow limiting stenosis, dissection, or aneurysm. AORTA: No flow limiting stenosis, dissection, or aneurysm. ILIAC ARTERIES: No flow limiting stenosis, dissection, or aneurysm. LOWER CHEST: No significant pulmonary abnormalities. No effusion. LIVER: Normal size. No identified cystic or solid masses. GALLBLADDER: Cholecystectomy. BILE DUCTS: No intrahepatic or extrahepatic ductal dilatation. SPLEEN: Normal size. No focal lesions. PANCREAS: No identified cystic or solid masses. No significant calcifications. No adjacent inflammation or peripancreatic fluid collections. Pancreatic duct not dilated. ADRENALS: Normal. KIDNEYS/URINARY TRACT: Septated renal cyst in the upper pole right kidney measuring 1.5 cm. No renal calculi. No definable hydronephrosis. GI: Appendix is very slightly thick walled with a small calculus proximally. No definite acute findings evident of the appendix. Please correlate with clinical factors. There is no bowel wall thickening or evidence for ischemic bowel. Large amount of formed stool throughout the colon. PERITONEUM: No ascites or free air. RETROPERITONEUM: No mass or adenopathy. REPRODUCTIVE: No significant abnormality. MUSCULOSKELETAL: Slight dextroscoliosis. OTHER: No other abnormality. IMPRESSION: Mild narrowing of the proximal celiac artery with slight post stenotic dilatation. This is of uncertain clinical significance. Slight thickening of the wall of the appendix with small appendicolith proximally. No definite acute findings of the appendix. Please correlate with clinical factors. No aortic aneurysm or dissection. No acute finding. 08/04/23- Double contrast barium esophagram: IMPRESSION: 1. No evidence of hiatal hernia. Mild gastroesophageal reflux with provocative maneuvers. 2. There appears to be an outpouching of the gastric fundus projecting to the right which may represent a gastric diverticulum. 3. Mild tertiary and non pulsatile esophageal contractions. 01/21/2023-fecal elastase level normal at 374. 10/29/2022-Colonoscopy with Dr. Sorto: 5 mm tubular adenoma polyp removed from the transverse colon. Mild diverticulosis noted in the sigmoid colon. No obvious inflammatory changes seen. Random colon biopsies were negative for microscopic colitis. Small internal hemorrhoids noted. Advised to repeat in four years. 09/04/2022-CT of the abdomen and pelvis with IV contrast: IMPRESSION: 1. No definite evidence of bowel obstruction. 2. Mild diffuse mucosal thickening of the colon, which is concerning for mild colitis of infectious or inflammatory etiology. 3. Mild circumferential mucosal thickening of the urinary bladder, which may be related to underdistention versus cystitis. Clinical correlation with urinary analysis is recommended as clinically indicated. 4. Scattered colonic diverticula without definite evidence of diverticulitis. 5. Mild diffuse hepatic steatosis. 6. Normal appendix. 06/10/22- CT abd/pelvis with IV contrast: IMPRESSION: 1. Moderate right-sided colonic stool burden. Otherwise, no acute findings in the abdomen or pelvisto explain the patient's abdominal pain. 12/18/21- EGD with Dr. Sorto: Normal duodenum. Mild reflux esophagitis changes noted. Nonspecific gastric antral erythema noted. Gastric biopys noted antral-type gastric mucosa showing mild chronic inactive gastritis with mild regenerative changes. No metaplasia, dysplasia, or H. Pylori. 12/18/21- CT Abd/pelvis with IV, but no PO contrast: There was a lot of motion artifact during the exam. New nodular soft tissue density noted in the R medial gluteal fold. Infectious etiology cannot be excluded. Minimal urinary bladder wall thickening noted. 09/09/21-CT abdomen/pelvis with contrast noted: a focus of air in the bladder, decreased from prior imaging; a tiny fat containing umbilical hernia was noted; otherwise normal. 09/09/2021 -X-ray of the abdomen noted: a prominent air-filled loops of small bowel measuring up to2.8 cm and that is why the CT was completed. 09/09/2021- Labs: white blood cell count was 10.4. H/ H was 11.4/37.5 and hemoglobin had been 10.8 one month prior. CMP was normal. Urinalysis normal. Lipase normal in July of 2021. 08/22/2021-CT abd/pelvis: noted: a large amount of stool in the colon along with air bubbles in thebladder. 08/12/2021-Echocardiogram showed: a normal ejection fraction at 60-70%. She does follow with Cardiology. 08/09/2021- CT ABD/Pelvis: showed resolution of the intussusception. 08/08/21- CT abd/pelvis showed: a possible short-segment jejunal intussusception in the left upper quadrant along with diffuse hepatic steatosis and postsurgical changes of cholecystectomy. Possible cystitis was noted as well. 2019- Colonoscopy was completed with Dr. Aiken: A few polyps were removed. Internal hemorrhoids were noted. Not sure when she is supposed to repeat. No family history of colon cancer. Likely needs to be on a 5 year surveillance colonoscopy schedule. GI ASSESSMENT/PLAN (K58.2) Irritable bowel syndrome with both constipation and diarrhea (primary encounter diagnosis) (K59.01) Slow transit constipation Chronic symptomatology. Constipation predominant, but easily prone to diarrhea issues, especially with laxative use. Improving, but still not under good control. She will avoid MiraLax and senna/docusate combo pill since they seem to cause nausea/vomiting and make her not feel well. Recent CT scan was without concerning findings. She was provided the following instructions/plan to follow after today's visit: -The only changes I recommend making today is adding lactulose as needed. You can take 15-30 mL up to twice daily as needed when on day 2-3 without a good bowel movement. It should help you have a bowel movement within a few hours, but do not be surprised if it causes some short term diarrhea. -If you seem to get any excessive gas production with the lactulose, take a dose of Gas-X/simethicone each time you take it. -Continue QID PRN Gas-X -Continue Bentyl/dicyclomine 20 mg q.i.d. p.r.n., but use sparingly for cramping, since can contribute to diarrhea. -Continue Amitiza/lubiprostone 24 mcg b.i.d.. -Continue Nortriptyline 25 mg at HS. -Continue to identify/avoid food triggers (FODMAP diet list previously provided). (K63.8228) Small intestinal bacterial overgrowth (SIBO) * Will keep in mind that at one point we tried doxycycline to cover for SIBO and it did not help, but the Rifaximin did..., but made constipation worse... No concerns for an active SIBO issue at thistime. (R11.0) Chronic nausea Chronic symptomatology that waxes and wanes in severity, but is more problematic when constipation is not well controlled so that is where the majority of our focus will be placed. She will continue Zofran as needed. She has a gastric emptying study that is scheduled for next month. She will continue to avoid senna/docusate and MiraLax since it seems to contribute to nausea issues. Has had a cholecystectomy in the past. (K21.00) Gastroesophageal reflux disease with esophagitis without hemorrhage (K29.30) Chronic superficial gastritis without bleeding (Z98.890, Z87.19) History of repair of hiatal hernia Well controlled at present on Protonix 40 mg daily and famotidine 20 mg daily p.r.n.. She will continue this regimen without change. Risks/benefits/side effects of long-term PPI use were discussed with patient. Encouraged to continue to work on vaping cessation. Encouraged to continue to avoid alcohol and NSAID use. (K22.4) Esophageal dysmotility Noted at time of recent double-contrast barium esophagram. Baclofen is helping. She will continue it at 10 mg 10-15 minutes before eating up to t.i.d.. (D12.6) Tubular adenoma of colon Needs a repeat colonoscopy at the [facility], in October of 2026. Orders Placed This Encounter lactulose solution 10 gram/15mL Sig: Take 15-30 mls 1-2 times daily as needed for problematic constipation. Dispense: 473 mL Refill: 2 Return in about 6 weeks (around 11/05/2023) for IBS. Medication(s) and/or immunization(s) uses and side effects briefly discussed. Patient verbalizes understanding of all instructions provided today and agrees with plan. Total time spent on the date of the [id number]-[id number]-[id number] encounter, including both gydg-vu-cxtw time (including time spent providing education) and jix-bfff-fm-face time (pre-charting, reviewing chart, post-charting) was 33 minutes. This note is dictated and transcribed by [employer]. Planning Director variances may occur. Despite proofreading, typographical errors may occur. My collaborating physician is Dr. Germania Sorto-Gastroenterology. Richard Bowman NP CY WRITER TYPIST documented in this encounter Plan of Treatment Upcoming Encounters Date Type Department Care Team (Latest Contact Info) Description 09/07/2024 8:30 AM POLICY WRITER TYPIST Hospital Encounter [facility] [address] [place] [phone] Forest Catherine MD [address] [address] 09/07/2024 8:30 AM POLICY WRITER TYPIST - 09/07/2024 9:00 AM POLICY WRITER TYPIST Surgery [facility] [address] [place] [phone] Forest Catherine MD [address] [address] EGD w/Endo Flip & YI placement Scheduled Procedures Name Priority Associated Diagnoses Date/Ti me ESOPHAGOGASTRODUODENOSCOPY Hiatal hernia Gastroesophageal reflux disease, unspecified whether esophagitis present 09/07/2024 8:30 AM POLICY WRITER TYPIST documented as of this encounter Visit Diagnoses Diagnosis Irritable bowel syndrome with both constipation and diarrhea- Primary Slow transit constipation Small intestinal bacterial overgrowth (SIBO) Chronic nausea Nausea alone Gastroesophageal reflux disease with esophagitis without hemorrhage Chronic superficial gastritis without bleeding History of repair of hiatal hernia Tubular adenoma of colon Benign neoplasm of colon Esophageal dysmotility Dyskinesia of esophagus Hiatal hernia Diaphragmatic hernia without mention of obstruction or gangrene Gastroesophageal reflux disease, unspecified whether esophagitis present documented in this encounter Care Teams Optometrist President/Practice Owner Relationship Specialty Start Date End Date Parmjit Dai MD PCP - General 12/31/20 Mere Landa NP Nurse Practitioner 02/07/20 Tico Burton MD Surgeon General Surgery 08/09/21 Ivan Liang MD Consulting Physician General Surgery 09/09/23 documented as of this encounter
--- OUTSIDE RECORDS SUMMARY | 2024-08-16 04:32 | XMS_ITS | Encounter Summary ---
Author Organization [facility] Healthcare Address [address] [place] [address] Care Team Providers Care Digital Assistant Name Role Phone Mere Landa NP Unavailable [phone] Parmjit Ewing MD Primary Care Provider [phone] Tico Burton MD Unavailable [phone] Jared Liang MD Unavailable Reason for Visit * Reason Comments Abdominal Pain * Auth/Cert (Routine) Specialty Diagnoses / Procedures Referred By Loreta t Referred To Contact Diagnoses Chronic abdominal pain Procedures na Referral ID Status Reason Start Date Expiration Date Visits Re quested Visits Authorized [id number] 1 1 Encounter Details Date Type Department Care Team (Late st Contact Info) Description 09/08/2023 9:44 PM NURSERY WORKER - 09/09/2023 3:47 PM NURSERY WORKER Emergency [facility] Surgery Care [address] [place] [address] Matilde Knowles MD [address] [place] [address] [place] [address] Germán Egan MD [address] [place] [address] [place] [address] Ryan Nation Jr., MD [address] [place] [address] [place] [address] Jared Liang MD [address] [place] [address] [place] [address] Chronic abdominal pain (Primary Dx); Acute appendicitis, unspecified acute appendicitis type; Appendix disease Discharge Disposition: Discharge to home or self care Social History Tobacco Use Types Packs/Day Years Used Date Smoking Tobacco: Former Cigarettes 1999 Vaping Smokeless Tobacco: Never Comments:off and on Alcohol Use Standard Drinks/Week Comments No 0 (1 standard drink = 0.6 oz pur e alcohol) on occasion [facility] Utilities Answer Date Recorded In the past 12 months has [employer], gas, oil, or water company threatened to [...] any clubs o r organizations such as anabaptism groups, unions, fraternal or athletic groups, or [...] to sleep or slept in a senior living (including now)? No 09/09/2023 Personal Safety Answer Date Recorded Getting School Help Needed Denies 08/10 Comments No Sex and Gender Information Value Date Recorded Sex Assigned at Not on file Legal Sex Female 10:06 AM NURSERY WORKER Gender Identity Female 06/17/2024 7:02 AM CDT Sexual Orientation Not on file documented as of this encounter Last Filed Vital Signs Vital Sign Reading Time Taken Comments Blood Pressure 109/70 09/09/2023 12:06 PM NURSERY WORKER Pulse 67 09/09/2023 12:06 PM NURSERY WORKER Temperature 36.3 ??C (97.3 ??F) 09/09/2023 12:[address] Respiratory Rate 18 09/09/2023 12:06 PM NURSERY WORKER Oxygen Saturation 100% 09/09/2023 12:06 PM NURSERY WORKER Inhaled Oxygen Concentration - - Weight 57.9 kg (127 lb 9.6 oz) 09/09/2023 3:05 A M NURSERY WORKER Height 163.8 cm (5' 4.5 ) 09/09/2023 3:05 AM NURSERY WORKER Body Mass Index 21.56 09/09/2023 3:05 AM NURSERY WORKER documented in this encounter Discharge Summaries * Della Wright MD - 09/09/2023 3:47 PM CST Inpatient Discharge Summary Patient Name - Sarahy Mays Patient Age - 53 yrs Patient - [id number] [facility] - [id number] Document Creation Date: 09/09/2023 Admitting Provider, : Jared Liang MD Discharge Provider, MD: No att. providers found Primary Care Physician at Discharge: Parmjit Ewing MD [phone] Admission Date: 09/08/2023 Discharge Date/time: 09/09/2023 Admission Location: [facility] LOS - LOS: 0 days DETAILS OF HOSPITAL STAY Hospital Problems/Diagnoses Principal Problem: Chronic abdominal pain Active Problems: Irritable bowel syndrome with both constipation and diarrhea Atrial fibrillation (CMS/HCC) (HCC) Bipolar affect, depressed (HCC) Chronic nausea History of repair of hiatal hernia Gastroesophageal reflux disease without esophagitis History of colonoscopy with polypectomy Nausea and vomiting Chronic anemia Appendix disease Iron deficiency anemia Severe protein-calorie malnutrition (CMS/HCC) (HCC) Reason for Hospitalization: Chronic abdominal pain Hospital Course: Sarahy Mays is a 53 y.o. female with a PMH of afib, DDD, BPD, panic disorder, depression, IBS, and anemia presented with chief complaint of abdominal pain. Patient has chronic right lower quadrant pain, which has been ongoing for the past few months, but reports for the past day and a the abdo brigido pain has got worse. Dull pain with severity of 8/10. Patient reports it radiates from right lower quadrant to the belly button and occasionally into the groin. Reports constant pain for the past day and a half. Reports nausea and vomiting. Patient also reports multiple bowel movements non bloody, no melena. Patient reports that she has not tolerated the pain so she came to the ED for further evaluation. Patient has been evaluated by Dr. Liang who had scheduled an appendectomy for 09/09. In the ED, afebrile, pulse 78, RR 18, BP 106/56, SpO2 of 100%. CMP within normal limits, lipase 35,CBC no leukocytosis noted, hemoglobin 10.6 with an MCV of 83.7. The ER doctor spoke with Dr. Liang who recommended further CT imaging to be obtained. CT abdomen pelvis Persistent ascending colonicwall thickening mucosal hyperenhancement compared to 08/19/2023. This finding is new compared to 09/04/2022. These findings are most compatible with colitis. However given persistence since 08/19/2023, underlying mass can not be excluded. Recommend follow-up colonoscopy when clinically feasible if not recently performed for further evaluation. Normal appendix. Pain was given Bentyl, Toradol, Zofran, droperidol , and 1 L of fluids. GI was consulted ED. a formed stool was obtained, solid light brown no gross blood or melena, and no observed mucous. Patient was admitted for chronic abdominal pain. Patient taken to surgery early on 09/09/23 and seen afterwards. Stated pain was previously 8/10 prior to surgery, and 3/10 after procedure. Patient stated she felt well to go home. Placed on Wellpinit 5-325mg for pain control. Patient is to follow up with GI at hospital discharge. Discharge Details Physical Exam at Discharge: Discharge Condition: good Pulse: 67 Resp: 18 BP: 109/70 Temp: 36.3 ??C (97.3 ??F) Weight: 57.9 kg (127 lb 9.6 oz) Pertinent Exam Findings at Discharge: Constitutional: In NAD, stated pain was 3/10 and she felt well enough to go home Cardiac: Regular rate and rhythm, normal S1 and S2 Respiratory: No wheezes, rales or rhonchi Gastrointestinal: No TTP MSK: Neck supple Skin: No rashes or lesions Discharge Disposition: Discharge to home or self care Code Status at Discharge: Full Code Active Issues & Recommended Plan for Follow-up: Chronic abdominal pain IBS syndrome with both constipation and diarrhea Colitis S/p appendectomy -Continue Wellpinit 5-325mg q6hr PRN for 7 days -Continue Zofran 8mg q8hr GERD -Continue Famotidine 20mg PRN -Continue Protonix 40mg daily Bipolar disorder Anxiety -Continue Nortriptyline 25mg A-fib -Continue Eliquis 5mg BID Allergies: Compazine [prochlorperazine], Phenergan [promethazine], Reglan [metoclopramide], and Zithromax [azithromycin] Discharge Medications: Your medication list START taking these medications Instructions Last Dose Given Next Dose Due HYDROcodone-acetaminophen 5-325 mg per tablet Commonly known as: NORCO Take 1 tablet by mouth every 6 (six) hours as needed for pain for up to 7 days CONTINUE taking these medications Instructions Last Dose Given Next Dose Due albuterol HFA 90 mcg/actuation inhaler Commonly known as: PROVENTIL HFA,VENTOLIN HFA,PROAIR HFA 2 puffs every 4 (four) hours as needed apixaban 5 mg tablet Commonly known as: ELIQUIS Take 1 tablet (5 mg total) by mouth 2 (two) times a day atorvastatin 40 mg tablet Commonly known as: LIPITOR Take 1 tablet (40 mg total) by mouth daily baclofen 10 mg tablet Commonly known as: LIORESAL Take 1/2-1 pill t.i.d. Take 10-15 minutes before eating to help with the esophageal spasms. dicyclomine 20 mg tablet Commonly known as: BENTYL Take 1 tablet (20 mg total) by mouth 4 (four) times a day as needed (abdominal pain/cramping) docusate sodium 100 mg capsule Commonly known as: COLACE Take 2 capsules (200 mg total) by mouth nightly famotidine 20 mg tablet Commonly known as: PEPCID Take 1 tablet (20 mg total) by mouth daily as needed for indigestion or heartburn flecainide 100 mg tablet Commonly known as: TAMBOCOR TAKE 1 TABLET BY MOUTH TWICE DAILY. START TAKING SATURDAY 07/07 lubiprostone 24 mcg capsule Doctor's comments: ZERO refills remain on this prescription. Your patient is requesting advance approval of refills for this medication to PREVENT ANY MISSED DOSES Commonly known as: AMITIZA Take 1 capsule (24 mcg total) by mouth 2 (two) times a day with meals metoprolol XL 25 mg extended release tablet Commonly known as: TOPROL-XL Take 1 tablet (25 mg total) by mouth daily nortriptyline 25 mg capsule Commonly known as: PAMELOR Take 1 capsule (25 mg total) by mouth nightly ondansetron 8 mg tablet Commonly known as: ZOFRAN Take 0.5-1 tablets (4-8 mg total) by mouth every 6 (six) hours as needed for nausea or vomiting pantoprazole DR 40 mg EC tablet Commonly known as: PROTONIX Take 1 tablet (40 mg total) by mouth daily SUMAtriptan 50 mg tablet Commonly known as: IMITREX Take 1 tablet (50 mg total) by mouth once as needed for migraine May repeat dose once in 2 hours ifno relief. Do not exceed 2 doses in 24 hours. Where to Get Your Medications You can get these medications from any pharmacy Bring a paper prescription for each of these medications HYDROcodone-acetaminophen 5-325 mg per tablet Time Spent in Discharge Process: I have spent 30 minutes on discharge planning activities. Time spent was on Coordination of care, Follow up , and discharge exam Test Results Pending at Discharge (If Blank, None Found): Pending Labs Order Current Status Surgical pathology In process Operative Procedures Performed (If Blank, None Found): Procedure(s): LAPAROSCOPIC APPENDECTOMY Outpatient Follow-Up: Future Appointments Date Time Provider Department Center 09/11/2023 8:45 AM [facility] Br[facility] Img [facility] 09/15/2023 12:00 PM [facility] Nuc Med [facility] 09/15/2023 1:00 PM [facility] Nuc [facility] 09/15/2023 2:00 PM [facility] Nuc Med [facility] 09/15/2023 3:00 PM [facility] Nuc Med [facility] 09/15/2023 4:00 PM [facility] Nuc Med [facility] 09/24/2023 8:00 AM Richard Bowman NP [facility] Specialty 10/19/2023 9:00 AM Richard Bowman NP [facility] Specialty Contact Information for Follow-ups Jared Liang MD Specialty: General Surgery Relationship: Consulting Physician [address] [facility] [address] [place] [address] Next Steps: Schedule an appointment as soon as possible for a visit in 1 week(s) Parmjit Ewing MD Specialty: Family Medicine [address] [facility] [address] TIANA Lyle [facility] [address] [facility] [address] Next Steps: Follow up Comments: Follow up with established provider: 1 week Questions: To provider: PARMJIT EWING Matthew Christopher, MD Specialty: General Surgery Relationship: Consulting Physician Farida [address] [facility] [address] Next Steps: Follow up Instructions: Follow up with general surgery Questions: To provider: JARED LIANG Instructions for follow-up (appointment date and time): Follow up with general surgery Please schedule an appointment with the following provider(s): Jared Liang MD [address] [facility] [address] [place] [address] Schedule an appointment as soon as possible for a visit in 1 week(s) Parmjit Ewing MD [address] [facility] [address] MONTIEL B [facility] [address] [place] [address] Jared Liang MD [address] [facility] [address] [place] [address] Follow up with general surgery ANCILLARY INFORMATION Other Procedures & Diagnostic Tests: CT Abdomen Pelvis W Contrast Result Date: 09/09/2023 EXAM DESCRIPTION: CT ABDOMEN PELVIS W CONTRAST REASON FOR STUDY: RLQ abdominal pain, appendicitis suspected (Age => 12y) Right sided lower abdominal pain started yesterday Scheduled for appendectomy today No surgeries No cancer HTN Hx of hysterectomy Hx of hernia repair Hx of cholecystectomy Hx of ablation TECHNIQUE: CT scan of the abdomen and pelvis performed with intravenous and without oralcontrast using helical scanning technique with dynamic intravenous contrast injection. Reconstructed coronal and sagittal MPR images reviewed. All images stored on PACS. Automated exposure control was used as a dose optimization technique for this examination. CONTRAST TYPE/DOSE: 75mL of IOVERSOL 350 MG IODINE/ML INTRAVENOUS SYRINGE injected via intravenous COMPARISON: 08/19/2023 REFERENCE: Per ACR white paper recommendations, unless otherwise specified no follow-up imaging is recommended for incidental renal and adrenal lesions per consensus recommendations based on imaging criteria. Furtherlab evaluation could be pursued based on clinical findings. FINDINGS: LOWER CHEST: No significant pulmonary abnormalities. [...] to 08/19/2023. This finding is new compared to09/04/2022. The appendix is normal. There is a 2 mm appendicolith in the distal portion of the appendix. PERITONEUM: No ascites or free air. RETROPERITONEUM: No mass or adenopathy. REPRODUCTIVE: No significant abnormality. VASCULATURE: No abdominal aortic aneurysm. MUSCULOSKELETAL: No acute findings. Mild multilevel degenerative intervertebral disc height loss. There is dextroscoliosis. OTHER: Noother abnormality. IMPRESSION: Persistent ascending colonic wall thickening mucosal hyperenhancement compared to 08/19/2023. This finding is new compared to 09/04/2022. These findings are most compatible with colitis. However given persistence since 08/19/2023, underlying mass can not be excluded. Recommend follow-up colonoscopy when clinically feasible if not recently performed for further evaluation. Normal appendix. THIS IS AN ELECTRONICALLY VERIFIED FINAL REPORT 09/09/2023 1:07 AM - Electronically signed by Parmjit Herrera M.D. BB: BÁRBARA Report ID: [id number] Reading Location: [place] [address] Recent Labs: Recent Labs Lab Units 09/09/23 07509/08/23 1859 WBC K/cumm 9.0 7.5 HEMOGLOBIN g/dL 10.2* 10.6* HEMATOCRIT % 33.2* 33.3* PLATELETS K/cumm 321 333 Recent Labs Lab Units 09/09/23 0758 09/08/23 1859 WBC K/cumm 9.0 7.5 HEMOGLOBIN g/dL 10.2* 10.6* HEMATOCRIT % 33.2* 33.3* PLATELETS K/cumm 321 333 NEUTROS PCT % -- 76.5 LYMPHS PCT % -- 15.8 MONOS PCT % -- 6.9 EOS PCT % -- 0.3 Recent Labs Lab Units 09/09/23 07509/08/23 1859 SODIUM mmol/L 144 141 POTASSIUM PLASMA mmol/L 3.7 3.4 CHLORIDE mmol/L 109 106 CO2 mmol/L 25 25 BUN SERUM mg/dL 10 7 CREATININE mg/dL 0.66 0.68 [id number] mL/min/1.73 m2 104 103 GLUCOSE mg/dL 105 110 CALCIUM mg/dL 9.0 9.6 ALBUMIN g/dL 4.2 4.5 Recent Labs Lab Units 09/09/23 0758 09/08/23 1859 SODIUM mmol/L 144 141 POTASSIUM PLASMA mmol/L 3.7 3.4 CHLORIDE mmol/L 109 106 CO2 mmol/L 25 25 ANIONGAP mmol/L 10 11 GLUCOSE mg/dL 105 110 BUN SERUM mg/dL 10 7 CREATININE mg/dL 0.66 0.68 CALCIUM mg/dL 9.0 9.6 ALBUMIN g/dL 4.2 4.5 ALK PHOS Units/L 85 90 ALT Units/L 34 34 AST Units/L 38 37 BILIRUBIN TOTAL mg/dL 0.3 0.4 Recent Labs Lab Units 09/09/23 0758 09/08/23 1859 ALK PHOS Units/L 85 90 BILIRUBIN TOTAL mg/dL 0.3 0.4 TOTAL PROTEIN g/dL 6.9 7.6 ALT Units/L 34 34 AST Units/L 38 37 Lab Results Component Value Date GLUCOSE 105 09/09/2023 GLUCOSE 110 09/08/2023 GLUCOSE 113 09/04/2022 Implant Implants No active implants to display in this view. General Precautions (If Blank, None Found): Isolation Status: No active isolations Nutritional Status and in-house recommendations: Dietary Orders (From admission, onward) Start Ordered 09/09/23 1700 Oral Nutrition Supplements Select Supplement: Ensure Clear - Any Flavor All Meals Question: Select Supplement: Answer: Ensure Clear - Any Flavor 09/09/23 1453 09/09/23 1053 Adult Diet Clear Liquid Diet effective now Question: ([facility]) Diet Type Answer: Clear Liquid 09/09/23 1052 Anticoagulation Indication: INR: No results found for requested labs within last 30 days. Warfarin Administrations (last 168 hours) None Oxygen Status: O2 Therapy for the past 12 hrs: O2 Therapy O2 Flow Rate (L/min) 09/09/23 1206 None (Room air) -- 09/09/23 1106 None (Room air) -- 09/09/23 1035 None (Room air) -- 09/09/23 1020 Supplemental oxygen 6 L/min 09/09/23 0810 None (Room air) -- 09/09/23 0717 None (Room air) -- Wound Care Instructions Other Instructions Call provider for: difficulty breathing or chest pain Call provider for: persistent dizziness or light-headedness Call provider for: persistent nausea or vomiting Call provider for: redness, tenderness, or signs of infection (pain, swelling, redness, odor or green/yellow discharge around incision site) Call provider for: severe uncontrolled pain Active LDAs (If Blank, None Found): Peripheral IV 09/08/23 20 G Anterior;Distal;Left Forearm (Active) Placement Date/Time: 09/08/232309 Type: Angiocath Size (Gauge): 20 G Location Orientation: Anterior;Distal;Left Location: Forearm Site Prep: Chlorhexidine Inserted by: leslie cole Insertion attempts: 2 Patient Tolerance: Tolerated well Patient Emergency Contact: Primary Emergency Contact: Arnulfo Mays Immunization Status at Discharge Immunization History Administered Date(s) Administered Influenza, Unspecified 05/01/2021, 07/01/2022 Moderna SARS-CoV-2 Monovalent Vaccination (12+ YRS) 01/23/2021, 02/20/2021 Della Wright MD Cosigned by Ryan Nation Jr., MD at 09/10/2023 7:20 AM NURSERY WORKER ERY WORKER ERY WORKER Associated attestation - Ryan Nation Jr., MD - 09/10/2023 7:20 AM NURSERY WORKER I personally saw and examined the patient and discussed the case with the resident. I have reviewedthe resident's note and agree with the content and plan as written. My total encounter time on 09/10/23 was 36 minutes which was spent in the activities documented in the note. This includes time spent prior to the visit and after the visit in direct care of the patient. This time does not include time spent in any separately reportable services. Ryan Nation Jr., MD documented in this encounter Discharge Instructions * Discharge Instructions* Bernice Velazquez RN - 09/09/2023 2:03 PM NURSERY WORKER Discharge Instructions: 1. No driving while on narcotics 2. No heavy lifting greater than a milk jug until follow up 3. Ice to operative site, on 15 minutes off 15 minutes as needed for pain 4. May shower starting 09/10, No tub baths or soaking of incisions 5. Take stool softner while on narcotics to prevent constipation 6. Call for worsening pain, erythema, drainage or any other concerns about your incisions or post operative course 7. Follow up in 1 week, Please call office for appointment 8. Diet, until follow up: as tolerates THANK YOU for choosing our team to provide your health care. Your HEALTH AND SAFETY are important to us. We hope you feel your care on [facility] is ALWAYS EXCELLENT! Please call [facility] at [phone] if you have any questions regarding your care. Wishing you continued improvement during your recovery. Your Surgical Care Unit Team Bernice Carranza Dana, Denise, Brittny Kessler Samantha, Megan, Stacy, Debbie, Sheila, Lamika, Judy, Nicole Lopez Jocelyn, Rochelle, Simona, Bonnie, Angie, Melanie, Kayla, Devin, Cassie. Nicole Lopez Jocelyn, Rochelle, Simona, Bonnie, Angie, Melanie, Angelique, Jennifer Gray. ERY WORKER ERY WORKER * Discharge Instr - Diet* Monique Luna, SILVIA - 09/09/2023 2:48 PM NURSERY WORKER Recommend to eat a GI soft diet until physician approves advancement. This diet consists of foods that are easily digested. Acceptable foods are soft in texture and low in fiber. Highly fibrous foods, fried foods, legumes, spicy foods, and gas forming fruits and vegetables are likely to cause pain and discomfort and should be avoided. Additional resources are available online from the Academy of Nutrition and Dietetics at www.eatright.org If poor intakes and/or unintended weight loss occur on discharge follow up with primary care physician. Call [facility] Dietitian's office at [phone] for questions about your diet. If interested in nutrition counseling, ask your doctor for referral and call [phone] to make an appointment. Oral nutritional supplement 2 - 3 x daily until intakes consistently adequate. ERY WORKER * Attachments The following attachments cannot be sent through Care Everywhere. * Hydrocodone/Acetaminophen (By mouth) (Algerian) documented in this encounter Medications at Time [...] tablet (25 mg total) by mouth daily HYDROcodone-acet aminophen (NORCO) 5-325 mg per tabletIndication s:Pain Take 1 tablet by mouth every 6 (six) hours as needed for pain for up to 7 days 28 tablet 09/09/2023 baclofen (LIORESAL) 10 mg tablet Take 1/2-1 [...] hours. 4 documented as of this encounter Ordered Prescriptions Prescription Sig Dispense Quantity Refills Last Filled Start Date End Date HYDROcodone-acetam inophen (NORCO) 5-325 mg per tabletIndications: Pain Take 1 tablet by mouth every 6 (six) hours as needed for pain for up to 7 days 28 tablet 09/09/2023 09/16/2023 documented in this encounter Discharge Disposition Disposition Code Departure Means Destination Comment s Discharge to home or self care documented in this encounter H&P Notes * Letha Rose MD - 09/09/2023 2:52 AM CST History and Physical Family Medicine Service Date of service: 09/09/23 Chief Complaint: Abdominal pain Primary care provider: Parmjit Ewing MD HPI: Sarahy Mays is a 53 y.o. female with a PMH of afib, DDD, BPD, panic disorder, depression, IBS, and anemia presented with chief complaint of abdominal pain. Patient has chronic right lower quadrant pain, which has been ongoing for the past few months, but reports for the past day and a the abdo brigido pain has got worse. Dull pain with severity of 8/10. Patient reports it radiates from right lower quadrant to the belly button and occasionally into the groin. Reports constant pain for the past day and a half. Reports nausea and vomiting. Patient also reports multiple bowel movements non bloody, no melena. Patient reports that she has not tolerated the pain so she came to the ED for further evaluation. Patient has been evaluated by Dr. Liang who had scheduled an appendectomy for 09/09 In the ED, afebrile, pulse 78, RR 18, BP 106/56, SpO2 of 100%. CMP within normal limits, lipase 35,CBC no leukocytosis noted, hemoglobin 10.6 with an MCV of 83.7. The ER doctor spoke with Dr. Liang who recommended further CT imaging to be obtained. CT abdomen pelvis Persistent ascending colonicwall thickening mucosal hyperenhancement compared to 08/19/2023. This finding is new compared to 09/04/2022. These findings are most compatible with colitis. However given persistence since 08/19/2023, underlying mass can not be excluded. Recommend follow-up colonoscopy when clinically feasible if not recently performed for further evaluation. Normal appendix. Pain was given Bentyl, Toradol, Zofran, droperidol , and 1 L of fluids. GI was consulted ED. a formed stool was obtained, solid light brown no gross blood or melena, and no observed mucous. Patient was admitted for chronic abdominal pain At time of visit patient denied any abdominal pain, denied any nausea or vomiting. Patient reports last colonoscopy was in October of 2022, polyp was removed and patient was to follow up in 3-4 years. Patient also reported history of colitis requiring antibiotics and treatment. Patient reports that she has been off of her Eliquis due to planned surgery on 09/09. Patient accepted by [facility], Ryan Salinas Jr* (Attending) and Dr. Letha Rose MD (Resident). Past Medical History: Diagnosis Date A-fib (CMS/HCC) (HCC) Anemia Anxiety Arthritis Bipolar affect, depressed (HCC) Chronic nausea 09/24/2021 Colon polyp Cyclic vomiting syndrome Depression Headache, tension-type Hypertension Hypotension IBS (irritable bowel syndrome) Migraine Nausea and vomiting, unspecified vomiting type 12/18/2021 Stroke (HCC) TIA Weight loss Past Surgical History: Procedure Laterality Date ABDOMINAL SURGERY 2013 hiatel hernia repair ARTHROSCOPIC SURGERY Left 1985,1994,2001 knee SECTION 1992 CHOLECYSTECTOMY COLONOSCOPY 1-2yrs ago COLONOSCOPY 10/29/2022 ENDOMETRIAL ABLATION HERNIA REPAIR POLYPECTOMY TUBAL LIGATION Medications Prior to Admission Medication Sig Dispense Refill Last Dose albuterol HFA (PROVENTIL HFA,VENTOLIN HFA,PROAIR HFA) 90 [...] not exceed 2 doses in 24 hours. Allergies Allergen Reactions Compazine [Prochlorperazine] Other (See comments) made me feel weird, odd also agitation Phenergan [Promethazine] Agitation Reglan [Metoclopramide] Other (See comments) Had TIA after trying. Zithromax [Azithromycin] Stomach upset Social History Tobacco Use Smoking status: Former Types: Vaping, Cigarettes Start date: 1983 Quit date: 1999 Years since quittin.0 Smokeless tobacco: Never Tobacco comments: off and on Substance and Sexual Activity Drug use: Yes Types: Marijuana Comment: occasionally last used 124 Sexual activity: Defer control/protection: Post-menopausal Alcohol Use: Not At Risk (09/03/2023) AUDIT-C Frequency of Alcohol Consumption: Never Average Number of Drinks: Patient does not drink Frequency of Binge Drinking: Not on file Family History Problem Relation Age of Onset Esophageal cancer Maternal Grandmother Heart disease Maternal Grandmother Stroke Maternal Grandmother Hypertension Maternal Grandmother Migraines Mother Review of Systems: Review of Systems Constitutional: Negative for chills, fever, malaise/fatigue and weight loss. HENT: Negative for congestion and sore throat. Eyes: Negative for blurred vision. Respiratory: Negative for cough and shortness of breath. Cardiovascular: Negative for chest pain and leg swelling. Gastrointestinal: Positive for abdominal pain, diarrhea, heartburn, nausea and vomiting. Negative for blood in stool. Genitourinary: Negative for dysuria, frequency and urgency. Musculoskeletal: Negative for myalgias. Skin: Negative for rash. Neurological: Negative for dizziness and headaches. Psychiatric/Behavioral: Positive for depression. The patient is nervous/anxious. OBJECTIVE Vitals: Arrival Vitals [09/08/23 1854] Temp 36.4 ??C (97.6 ??F) Pulse 78 Resp 18 BP 106/56 SpO2 100 % Temp src Heart Rate Source Patient Position BP Location FiO2 (%) 24hr Min/Max: Temp Min: 36.4 ??C (97.6 ??F) Max: 37 ??C (98.6 ??F) Pulse Min: 59 Max: 104 BP Min: 97/57 Max: 119/59 Resp Min: 8 Max: 21 SpO2 Min: 99 % Max: 100 % Most Recent : Vitals: 09/09/23 0305 BP: 107/62 Pulse: 69 Resp: 14 Temp: 37 ??C (98.6 ??F) SpO2: 99% No intake or output data in the 24 hours ending 09/09/23 0412 Physical exam: General: Patient no acute distress, lying in bed Eyes: EOMI, CANDIDA, sclare non icteric Neck: supple, no cervical LAD ENT: No gross oral lesion, tongue midline, mucosa moist Respiratory: Clear to auscultation Cardiovascular: Regular rate, S1-S2 Abdomen: +BS, Non Tender, Non distended, No gross hepatomegaly Lower Ext: No gross edema, pedal artery pulses present bilaterally Neuro: Moves all 4 extremities, Alert and oriented x 4, good coordination, normal speech Musculoskeletal: no gross joint erythema, edema, tenderness Genitourinary: No suprapubic tenderness Skin: warm and dry Psychiatric: Normal affect, good judgment Lab/Radiology/Diagnostic Review: Recent Results (from the past 24 hour(s)) CBC with auto differential Collection Time: 09/08/23 6:59 PM Result Value Ref Range WBC 7.5 3.8 - 9.9 K/cumm Hgb 10.6 (L) 11.9 - 15.5 g/dL Hct 33.3 (L) 35.6 - 45.5 % Plt 333 150 - 400 K/cumm MPV 10.0 9.1 - 12.3 fL RBC 3.98 3.90 - 5.20 M/cumm MCV 83.7 81.3 - 96.4 fL MCH 26.6 (L) 27.1 - 33.3 pg MCHC 31.8 (L) 32.3 - 35.7 g/dL RDW CV 18.7 (H) 11.1 - 14.9 % RDW SD 55.2 (H) 35.7 - 48.1 fL NRBC abs 0.00 0.00 - 0.01 K/cumm Comprehensive metabolic panel Collection Time: 09/08/23 6:59 PM Result Value Ref Range Sodium 141 135 - 145 mmol/L Potassium, pl 3.4 3.3 - 4.9 mmol/L Chloride 106 97 - 110 mmol/L CO2 25 22 - 32 mmol/L Anion gap 11 2 - 15 mmol/L BUN 7 6 - 25 mg/dL Creatinine 0.68 0.60 - 1.10 mg/dL Glucose 110 70 - 199 mg/dL Calcium 9.6 8.5 - 10.3 mg/dL Bilirubin, total 0.4 0.1 - 1.2 mg/dL Protein, pl 7.6 6.5 - 8.5 g/dL Albumin 4.5 3.5 - 5.0 g/dL Alk phos 90 40 - 130 Units/L ALT 34 7 - 45 Units/L AST 37 10 - 45 Units/L Lipase Collection Time: 09/08/23 6:59 PM Result Value Ref Range Lipase 35 10 - 99 Units/L Differential, auto Collection Time: 09/08/23 6:59 PM Result Value Ref Range Neutrophil abs 5.8 1.5 - 6.5 K/cumm Imm gran abs 0.0 0.0 - 0.1 K/cumm Lymphocyte abs 1.2 0.8 - 3.3 K/cumm Monocyte abs 0.5 0.2 - 0.8 K/cumm Eosinophil abs 0.0 0.0 - 0.5 K/cumm Basophil abs 0.0 0.0 - 0.1 K/cumm Neutrophil pct 76.5 % Imm gran pct 0.1 % Lymphocyte pct 15.8 % Monocyte pct 6.9 % Eosinophil pct 0.3 % Basophil pct 0.4 % eGFR Collection Time: 09/08/23 6:59 PM Result Value Ref Range eGFR 103 mL/min/1.[address] Abdomen Pelvis W Contrast Result Date: 09/09/2023 Narrative: EXAM DESCRIPTION: CT ABDOMEN PELVIS W CONTRAST REASON FOR STUDY: RLQ abdominal pain, appendicitis suspected (Age => 12y) Right sided lower abdominal pain started yesterday Scheduled forappendectomy today No surgeries No cancer HTN Hx of hysterectomy Hx of hernia repair Hx of cholecystectomy Hx of ablation TECHNIQUE: CT scan of the abdomen and pelvis performed with intravenous and wi thout oral contrast using helical scanning technique with dynamic intravenous contrast injection. Reconstructed coronal and sagittal MPR images reviewed. All images stored on PACS. Automated exposurecontrol was used as a dose optimization technique for this examination. CONTRAST TYPE/DOSE: 75mL ofIOVERSOL 350 MG IODINE/ML INTRAVENOUS SYRINGE injected via intravenous COMPARISON: 08/19/2023 REFERENCE: Per ACR white paper recommendations, unless otherwise specified no follow-up imaging is recommended for incidental renal and adrenal lesions per consensus recommendations based on imaging criteria. Further lab evaluation could be pursued based on clinical findings. FINDINGS: LOWER CHEST: No sig nificant pulmonary abnormalities. No effusion. LIVER: Normal size. No identified cystic or solid masses. GALLBLADDER: Surgically absent. BILE DUCTS: No intrahepatic or extrahepatic ductal dilatation.SPLEEN: Normal size. No focal lesions. PANCREAS: No identified cystic or solid masses. No significant calcifications. No adjacent inflammation or peripancreatic fluid collections. Pancreatic duct notdilated. ADRENALS: Normal. KIDNEYS/URINARY TRACT: Kidneys enhance symmetrically. [...] IMPRESSION: Persistent ascending colonic wall thickening mucosal hyper enhancement compared to 08/19/2023. This finding is new compared to 09/04/2022. These findings are most compatible with colitis. However given persistence since 08/19/2023, underlying mass can not beexcluded. Recommend follow-up colonoscopy when clinically feasible if not recently performed for further evaluation. Normal appendix. THIS IS AN ELECTRONICALLY VERIFIED FINAL REPORT 09/09/2023 1:07 AM- Electronically signed by Parmjit Herrera M.D. BB: BÁRBARA Report ID: [id number] Reading Location: [id number] CTA Abdomen Pelvis Result Date: 08/19/2023 Narrative: EXAM DESCRIPTION: CTA ABDOMEN PELVIS REASON FOR STUDY: Rule out abdominal blood vessel ischemia as a cause of her acute on chronic abdominal pain that is worse after eating. Abdomen pain for 6 months / nausea Had hiatal hernia repaired 2 years ago Surgery:GB and TECHNIQUE: CTA scan of the abdomen and pelvis performed without and with intravenous and without oral contrast using helical scanning technique with dynamic intravenous contrast injection. Precontrast, arterial, and portal venous phase images of the abdomen and pelvis were acquired. Images reviewed with lung, soft tissue and bone windows. Reconstructed coronal and sagittal MPR images reviewed. All images storedon PACS. 3D MIP images rendered on scanning unit and reviewed at time of interpretation. Automated exposure control was used as a dose optimization technique for this examination. CONTRAST TYPE/DOSE:75mL of IOVERSOL 350 MG IODINE/ML INTRAVENOUS SYRINGE injected via intravenous COMPARISON: CT abdomen pelvis 09/04/2022. REFERENCE: Unless otherwise specified, no follow-up imaging is recommended forincidental renal and adrenal lesions per consensus recommendations based on imaging criteria. Further lab evaluation could be pursued based on clinical findings. Management of the Incidental Renal Mass on CT: A White Paper of the ACR Incidental Findings Committee. J Am Kacey Radiol. 2018 Oct;15(2):264-273. Management of Incidental Adrenal Masses: A White Paper of the ACR Incidental Findings Committee. J Am Kacey Radiol. 2017 Mar;14(8):1038- 1044. FINDINGS: VASCULATURE: No dissection, aneurysm, intramural hematoma, [...] AORTA: No flow limiting stenosis, dissection, or aneurysm.ILIAC ARTERIES: No flow limiting stenosis, dissection, or aneurysm. LOWER CHEST: No significant pulmonary abnormalities. No effusion. LIVER: Normal size. No identified cystic or solid masses. GALLBLADDER: Cholecystectomy. BILE DUCTS: No intrahepatic or extrahepatic ductal dilatation. SPLEEN: Normalsize. No focal lesions. PANCREAS: No identified cystic or solid masses. No significant calcifications. No adjacent inflammation or peripancreatic fluid collections. Pancreatic duct not dilated. ADRENALS: Normal. KIDNEYS/URINARY TRACT: Septated renal cyst in the upper pole right kidney measuring 1.5cm. No renal calculi. No definable hydronephrosis. GI: [...] aortic aneurysm or dissection. No acute finding. THIS IS AN ELECTRONICALLY VERIFIED FINAL REPORT 08/19/2023 11:51 AM - Electronically signed by Kolby Kay M.D. LC: NICKY Report ID: [id number] Reading Location: [id number] Current Facility-Administered Medications Medication Dose Route Frequency Provider Last Rate Last Admin albuterol 2.5 mg /3 mL (0.083 %) nebulizer solution 2.5 mg 2.5 mg nebulization Q4H PRN (RT) Letha Rose MD dicyclomine (BENTYL) capsule 20 mg 20 mg oral QID PRN Letha Rose MD famotidine (PEPCID) tablet 20 mg 20 mg oral Daily PRN Letha Rose MD flecainide (TAMBOCOR) tablet 100 mg 100 mg oral BID Letha Rose MD Lactated Ringer's (LR) infusion 75 mL/hr intravenous Continuous Letha Rose MD lubiprostone (AMITIZA) capsule 24 mcg 24 mcg oral BID with meals (bkfst, dinner) Letha Rose MD metoprolol XL (TOPROL-XL) extended release tablet 25 mg 25 mg oral Daily Letha Rose MD nortriptyline (PAMELOR) capsule 25 mg 25 mg oral Nightly Letha Rose MD ondansetron ODT (ZOFRAN-ODT) disintegrating tablet 4 mg 4 mg oral Q6H PRN Matilde Knowles MD Or ondansetron (ZOFRAN) injection 4 mg 4 mg intravenous Q6H PRN Matilde Knowles MD 4 mg at 09/09/[address] (PROTONIX) extended release tablet 40 mg 40 mg oral Daily Letha Rose MD polyethylene glycol (MIRALAX) packet 17 g 17 g oral Daily PRN Matilde Knowles MD A/P Assessment/Plan ASSESSMENT AND PLAN: Principal Problem: Chronic abdominal pain Active Problems: Atrial fibrillation (CMS/HCC) (HCC) Irritable bowel syndrome with both constipation and diarrhea Bipolar affect, depressed (HCC) Chronic nausea History of repair of hiatal hernia Gastroesophageal reflux disease without esophagitis History of colonoscopy with polypectomy Nausea and vomiting Chronic anemia Iron deficiency anemia Resolved Problems: No resolved hospital problems. No new Assessment & Plan notes have been filed under this hospital service since the last note was generated. Service: Hospitalists Abdominal pain IBS syndrome with both constipation diarrhea History Cyclic vomiting syndrome, and colitis 53-year-old female presents with chief complaint of abdominal pain. Abdominal pain cramping nature lower quadrant. Patient has multiple medical conditions that can be the cause of her current abdominal pain. Differential diagnosis: IBS, GERD, colitis, UTI, nephrolithiasis, appendicitis,(unlikely pancreatitis with a normal lipase) CT abdomen pelvis with contrast: Persistent ascending colonic wall thickening, which are compatiblewith colitis. Underlying mass could not be excluded recommended follow up colonoscopy. Patient currently without a white count, with well-formed stool, unlikely colitis requiring antibiotics. Per chart review: Patient with history of cyclic vomiting syndrome secondary to MJ use, with previous history of colitis treated with antibiotics. Last colonoscopy 10/29/2022:with Dr. Sorto: 5 mm tubular adenoma polyp removed from the transverse colon. Mild diverticulosis noted in the sigmoid colon. No obvious inflammatory changes seen. Random colon biopsies were negative for microscopic colitis. Small internal hemorrhoids noted. Advised to repeat in four years. Patient was scheduled to have an appendectomy by Dr. Liang on 09/09. Previous CT scan did show abnormal appendix, per surgery: mild thickening of the appendix with a possible small appendicolith. Current CT obtained showed normal appendix. Will defer to Dr. Liang to see if he is planning on still continue with the procedure Home medication: Amitiza 24 mcg b.i.d, MiraLax and senna as needed, Bentyl for cramping as needed, Gas-X as needed Previous workup for celiac disease was negative Plan Will resume home medication Will get a UA Pending recommendations of GI and surgery Patient currently NPO Continue with fluids GERD Currently treated with Protonix and p.r.n. use of famotidine Will continue home medication Bipolar disorder Anxiety Patient has a history of bipolar disorder, type 2. Currently stable Home medication: Nortriptyline 25 mg AFib Patient with known history of AFib Previously anticoagulated with Eliquis 5 mg b.i.d.-due to elective surgery on 09/09, Eliquis has been placed on hold since 09/06. Rate control: Metoprolol and flecainide Chronic anemia Iron deficiency anemia On presentation noted to have a hemoglobin of 10.6 Patient baseline about 10-11 Currently stable Continue to follow with daily CBC Patient received schedule Venofer last administration was 09/04/2023 These fluid and electrolyte abnormalities are being treated, evaluated or monitored: No fluid or electrolyte disorders FEN: NPO, LR75ml/hr GI PPX: Protonix DVT PPx: No DVT prophylaxis-plan for surgery today Consults: Surgery, GI Code Status: Full code Anticipated LOS: Less than 2 midnights Letha Rose MD [facility]- PGY3 [facility] Date of Service: 09/09/2023 4:12 AM Cosigned by Ryan Nation Jr., MD at 09/09/2023 4:22 PM NURSERY WORKER ERY WORKER ERY WORKER Associated attestation - Ryan Nation Jr., MD - 09/09/2023 4:22 PM NURSERY WORKER I personally saw and examined the patient and discussed the case with the resident. I have reviewedthe resident's note and agree with the content and plan as written. CT abd/pelvis w/ contrast showed some thickening of the wall of the ascending colon concerning for colitis vs mass and a grossly normal appearing appendix, imaging personally reviewed. UA unremarkable other than 1+ ketones. CMP unremarkable. MDM: high complexity Ryan Nation Jr., MD documented in this encounter Consult Notes * FelishaMonique romero, RD - 09/09/2023 2:46 PM CSTAssociated Order(s): IP CONSULT TO NUTRITION SERVICES NUTRITION ASSESSMENT Nutrition Status: Patient meets criteria for severe chronic malnutrition, reference ASPEN guidelines. Present on Admission: Yes REASON FOR ASSESSMENT: Consult/Referral - At Risk MST Score and Malnutrition Assessment and Screened at Nutrition Risk - At Risk MST Score Encounter Date: 09/09/23 2:49 PM Admission Date: 09/08/2023 LOS: 0 days HPI: Patient is a 53 y.o. female PMH of afib, DDD, BPD, panic disorder, depression, IBS, and anemia presented with chief complaint of abdominal pain. Patient has chronic right lower quadrant pain, which has been ongoing for the past few months, but reports for the past day and a the abdominal pain has got worse. Dull pain with severity of 8/10. Patient reports it radiates from right lower quadrant to the belly button and occasionally into the groin. Reports constant pain for the past day and a half.Reports nausea and vomiting. Patient also reports multiple bowel movements non bloody, no melena. Patient reports that she has not tolerated the pain so she came to the ED for further evaluation. Patient has been evaluated by Dr. Liang who had scheduled an appendectomy for 09/09 Objective Past Medical History: Diagnosis Date A-fib (CMS/HCC) [...] control/protection: Post-menopausal Alcohol Use: Not At Risk (09/03/2023) AUDIT-C Frequency of Alcohol Consumption: Never Average Number of Drinks: Patient does not drink Frequency of Binge Drinking: Not on file MEDICATION/LAB REVIEW: Scheduled Meds: flecainide, 100 mg, oral, BID lubiprostone, 24 mcg, oral, BID with meals (bkfst, dinner) metoprolol XL, 25 mg, oral, Daily nortriptyline, 25 mg, oral, Nightly pantoprazole DR, 40 mg, oral, Daily Continuous Infusions: Lactated Ringer's, 125 mL/hr, Last Rate: 125 mL/hr (09/09/23 1110) PRN Meds: albuterol dicyclomine famotidine ondansetron ODT OR ondansetron polyethylene glycol Recent Labs Lab Units 09/09/23 0758 SODIUM mmol/L 144 POTASSIUM PLASMA mmol/L 3.7 CHLORIDE mmol/L 109 CO2 mmol/L 25 BUN SERUM mg/dL 10 CREATININE mg/dL 0.66 [id number] mL/min/1.73 m2 104 CALCIUM mg/dL 9.0 ALBUMIN g/dL 4.2 Recent Labs Lab Units 09/09/23 0758 09/08/23 1859 GLUCOSE mg/dL 105 110 ALT Date Value Ref Range Status 09/09/2023 34 7 - 45 Units/L Final AST Date Value Ref Range Status 09/09/2023 38 10 - 45 Units/L Final Alk phos Date Value Ref Range Status 09/09/2023 85 40 - 130 Units/L Final Lipase Date Value Ref Range Status 09/08/2023 35 10 - 99 Units/L Final Lab Results Component Value Date HGBA1C 5.0 08/12/2021 HDL 55 08/12/2021 LDLCALC 123 08/12/2021 CHOL 192 08/12/2021 TRIG 70 08/12/2021 NURSING ASSESSMENT: Last BM Date: 09/08/23 Bowel Sounds (All Quadrants): Present Hansel Scale Score: 20 Skin Integrity: Surgical incision Vital Signs BP: 109/70 Temp: 36.3 ??C (97.3 ??F) Pulse: 67 Resp: 18 SpO2: 100 % Intake/Output Summary (Last 24 hours) at 09/09/2023 1449 Last data filed at 09/09/2023 1412 Gross per 24 hour Intake 1100 ml Output 205 ml Net 895 ml Adult Malnutrition Scoring Tool (MST) Have You Recently Lost Weight Without Trying?: Yes (Comment) How Much Weight Have You Lost?: 2 - 13 lb Have you been eating poorly because of a decreased appetite?: Yes Malnutrition Screening Tool (MST) Score: 2 Anthropometrics Weight: 57.9 kg (127 lb 9.6 oz) Admission Weight : 59 kg Weight Change: -1.08 kg (-2.40 lbs) IBW/kg (Calculated) : 55.6 kg Height: 163.8 cm (5' 4.5 ) Weight in (lb) to have BMI = 25: 147.6 BMI (Calculated): 21.6 Wt Readings from Last 10 Encounters: 09/09/23 57.9 kg (127 lb 9.6 oz) 09/03/23 59.3 kg (130 lb 11.2 oz) 08/21/23 60.8 kg (134 lb) 06/08/23 64 kg (141 lb 1.6 oz) 04/17/23 65.5 kg (144 lb 4.8 oz) 12/02/22 67.6 kg (149 lb 1.6 oz) 10/29/22 63.5 kg (140 lb) 09/05/22 62.6 kg (138 lb 0.1 oz) 09/04/22 62.6 kg (138 lb) 08/18/22 63.5 kg (140 lb) ESTIMATED NEEDS: Total Kcal/kg Estimated Needs : 1852.13 Kcal/k. Type of Weight Used for Estimated Kcals: Current Total Protein Estimated Needs (gm): 46.3 Protein Needs Based on g/k.8 Type of Weight Used for Estimated Protein : Current Total Fluid Estimated Needs: 1852.13 Fluid Needs Based on : 1 ml/kcal Type of Weight Used for Estimated Fluid Needs: Current Dietary Orders (From admission, onward) Start Ordered 09/09/23 1053 Adult Diet Clear Liquid Diet effective now Question: ([facility]) Diet Type Answer: Clear Liquid 09/09/23 1052 Allergies: Reviewed. IMPRESSION: Pt seen for 2 MST and consult. Pt says 3-4 months ago she was 140 lbs, 9.9% weight loss in 3-4 months, clinically significant. Pt says during that time, she's been unable to eat because of stomach issues. She has not tried supplements but is willing to try them. Ensure clear at meals. Encourage PO i yovany. ASPEN MALNUTRITION ASSESSMENT: Date of completion: 09/09/23 ASPEN/AND Malnutrition Screening: Chronic illness or injury severe Energy Intake: < 75% energy intake compared to estimated energy needs > (or equal to) 1 month Weight Loss: > 7.5% in 3 months (9.9% in 3-4 months) Body Fat: Severe Muscle Mass: Severe Patient Meets Criteria for Severe Malnutrition: Yes NUTRITION FOCUSED PHYSICAL EXAM: Completed. Subcutaneous Fat Loss Orbital Region - Surrounding the Eye: Dark circles Cheek Region - Buccal Fat: Flat cheeks Upper Arm Region - Triceps/Biceps: Between folds, fingers touch Muscle Loss Pentecostal Region - Temporalis Muscle: Hollowing, scooping, depression Clavicle Bone Region - Pectoralis Major, Deltoid, Trapezius Muscles: Visible in male, some protrusion in female Clavicle and Acromion Bone Region - Deltoid Muscle: Acromion process may slightly protrude Dorsal Hand - Interosseous Muscle: Slightly depressed NUTRITION DIAGNOSIS: Nutrition Diagnosis 1: Inadequate oral intake Related to: Loss of appetite, Nausea, Vomiting, Weight loss Evidenced by: Patient interview, Subcutaneous fat loss, Wt loss 10% /6m INTERVENTION(S): Summary: Encouragement, [place] diet preferences within the limits of nutrition care order, Initial assessment, Medical food supplement, NFPE GOAL(S): Oral intake to meet 75% estimated nutritional needs by next assessment, Advance to oral intake as medically able, Tolerance of medical food supplement by next assessment MONITORING/EVALUATION: Discharge plans, Labs, PO intake, Supplement tolerance Diet Instructions Adult Discharge Diet Diet Type: Return to previous diet Recommend to eat a GI soft diet until physician approves advancement. This diet consists of foods that are easily digested. Acceptable foods are soft in texture and low in fiber. Highly fibrous foods, fried foods, legumes, spicy foods, and gas forming fruits and vegetables are likely to cause pain and discomfort and should be avoided. Additional resources are available online from the Academy of Nutrition and Dietetics at www.eatright.org If poor intakes and/or unintended weight loss occur on discharge follow up with primary care physician. Call [facility] Dietitian's office at [phone] for questions about your diet. If interested in nutrition counseling, ask your doctor for referral and call [phone] to make an appointment. Oral nutritional supplement 2 - 3 x daily until intakes consistently adequate. Monique Luna RDN N Inpatient Office: [phone] Weekend Coverage: [phone] ERY WORKER * Jared Liang MD - 09/09/2023 9:12 AM CSTAssociated Order(s): IP CONSULT TO GENERAL SURGERY Surgery Consult Subjective: Patient Name: Sarahy Mays Date of Consult: 09/09/23 HPI: Sarahy Mays is a 53 y.o. female presenting for surgical evaluation of Abdominal pain. The patient was recently seen as an outpatient for this. She has been having several months of intermittent right lower quadrant abdominal pain. Imaging performed brought up question of a possibly dilated appendix with an appendicolith present. She had been seen and evaluated by GI with upper and lower endoscopy without any significant findings. She was referred to us for further evaluation for potential appendectomy just to rule this out as a source. She was being set up to have this performed when she presented to the emergency department with worsening of her symptoms Chief Complaint: Abdominal Pain Attending Provider: Ryan Nation Jr* Allergies as of 09/08/2023 - Reviewed 09/08/2023 Allergen Reaction Noted Compazine [prochlorperazine] Other (See comments) 02/23/2018 Phenergan [promethazine] Agitation 08/08/2021 Reglan [metoclopramide] Other (See comments) 09/24/2021 Zithromax [azithromycin] Stomach upset 02/23/2018 Current Facility-Administered Medications: [MAR Hold] albuterol 2.5 mg /3 mL (0.083 %) nebulizer solution 2.5 mg, 2.5 mg, nebulization, Q4H PRN (RT) Carrier Fluids for Secondary Infusion - 0.9% Sodium Chloride, 30 mL, intravenous, PRN cefOXitin (MEFOXITIN) 2,000 mg/20 mL in sterile water (premix) 2,000 mg, 2,000 mg, intravenous, Once [OCT Hold] dicyclomine (BENTYL) capsule 20 mg, 20 mg, oral, QID PRN [OCT Hold] famotidine (PEPCID) tablet 20 mg, 20 mg, oral, Daily PRN [OCT Hold] flecainide (TAMBOCOR) tablet 100 mg, 100 mg, oral, BID, 100 mg at 09/09/23804 Lactated Ringer's (LR) infusion, 75 mL/hr, intravenous, Continuous, Stopped at 09/09/23804 Lactated Ringer's (LR) infusion, 30 mL/hr, intravenous, Continuous, Last Rate: 30 mL/hr at , 30 mL/hr at 09/09/23811 [OCT Hold] lubiprostone (AMITIZA) capsule 24 mcg, 24 mcg, oral, BID with meals (bkfst, dinner) [OCT Hold] metoprolol XL (TOPROL-XL) extended release tablet 25 mg, 25 mg, oral, Daily, 25 mg at 09/09/23804 [OCT Hold] nortriptyline (PAMELOR) capsule 25 mg, 25 mg, oral, Nightly [OCT Hold] ondansetron ODT (ZOFRAN-ODT) disintegrating tablet 4 mg, 4 mg, oral, Q6H PRN OR [MARHold] ondansetron (ZOFRAN) injection 4 mg, 4 mg, intravenous, Q6H PRN, 4 mg at 09/09/23351 [OCT Hold] pantoprazole DR (PROTONIX) extended release tablet 40 mg, 40 mg, oral, Daily [MAR Hold] polyethylene glycol (MIRALAX) packet 17 g, 17 g, oral, Daily PRN sodium chloride 0.9% flush 0.5-20 mL, 0.5-20 mL, intra-catheter, PRN Past Medical History: Diagnosis Date A-fib (CMS/HCC) (HCC) Anemia Anxiety Arthritis Bipolar affect, depressed ([facility]) Chronic nausea 09/24/2021 Colon polyp Cyclic vomiting syndrome Depression Headache, tension-type Hypertension Hypotension IBS (irritable bowel syndrome) Migraine Nausea and vomiting, unspecified vomiting type 12/18/2021 Stroke ([facility]) TIA Weight loss Past Surgical History: [...] date: 1983 Quit date: 1999 Years since quittin.0 Smokeless tobacco: Never Tobacco comments: off and on Substance and Sexual Activity Drug use: Yes Types: Marijuana Comment: occasionally last used 1--24 Sexual activity: Defer control/protection: Post-menopausal Alcohol Use: Not At Risk (09/03/2023) AUDIT-C Frequency of Alcohol Consumption: Never Average Number of Drinks: Patient does not drink Frequency of Binge Drinking: Not on file Review of Systems Constitutional: Negative for activity change. HENT: Negative for hearing loss and sore throat. Eyes: Negative for visual disturbance. Respiratory: Negative for cough and shortness of breath. Cardiovascular: Negative for chest pain. Gastrointestinal: positive for abdominal pain Genitourinary: Negative for dysuria. Musculoskeletal: Negative for back pain. Neurological: Negative for dizziness and syncope. Psychiatric/Behavioral: Negative for agitation and confusion. Objective: Temp: [36.1 ??C (96.9 ??F)-37 ??C (98.6 ??F)] 36.7 ??C (98.1 ??F) Pulse: [59-104] 68 Resp: [8-21] 18 BP: (97-119)/(51-78) 115/73 Physical Exam Constitutional: The patient is oriented to person, place, and time. Head: Normocephalic and atraumatic. Eyes: Pupils are equal, round, and reactive to light. Neck: No thyromegaly present. Cardiovascular: Normal rate and regular rhythm. Pulmonary/Chest: Effort normal and breath sounds normal. Abdominal: Soft. non distended. Tenderness to palpation in the right lower quadrant Genitourinary: Rectum normal. Musculoskeletal: Normal range of motion. Neurological: alert and oriented to person, place, and time. Skin: Skin is warm and dry. Psychiatric: normal mood and affect. Labs: White blood cell count 9 Imaging: CT scan of the abdomen pelvis was personally reviewed. There was no free air or pneumatosis. The appendicolith was redemonstrated. There is no secondary signs of appendicitis. There is some mild thickening potentially within the ascending colon versus just the colon being decompressed Assessment: Present on Admission: Chronic abdominal pain Atrial fibrillation (CMS/HCC) (HCC) Bipolar affect, depressed (HCC) Chronic anemia Chronic nausea Gastroesophageal reflux disease without esophagitis Irritable bowel syndrome with both constipation and diarrhea Nausea and vomiting Plan: Chronic right lower quadrant abdominal pain Patient will be NPO for the procedure. We have discussed again that this may not resolve any of hersymptoms. If pain is unchanged after appendectomy will rediscuss with GI further options going forward. Continue IV pain control and IV antiemetics as needed. Consent to be obtained Jared Liang MD 9:12 AM 09/09/2023 ERY WORKER documented in this encounter ED Notes * Tianna Churchill PA - 09/08/2023 10:42 PM CST HPI Chief Complaint Patient presents with ??? Abdominal Pain 53-year-old A&O x4 female patient with multiple comorbidities presents for re- evaluation of herchronic right lower quadrant pain. This has been ongoing for the past few months, has been working with Dr. Liang. Scheduled to have an appendectomy performed tomorrow morning. States her pain hasbeen to severe at home and she has not developing nausea, presents for evaluation. Has been afebrile. Denies all other complaints at this time including urinary complaints Patient History: Patient Active Problem List Diagnosis Date Noted ??? 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 Abdominal pain 07/21/2023 ??? Dyspepsia 07/21/2023 ??? Colitis 09/10/2022 ??? Cyclical vomiting 09/05/2022 ??? Gastritis 09/05/2022 ??? Gastroesophageal reflux disease with esophagitis without hemorrhage 06/03/2022 ??? Chronic superficial gastritis without bleeding 01/17/2022 ??? Chronic anemia 01/17/2022 ??? Nausea and vomiting 12/18/2021 ??? Marijuana use 12/18/2021 ??? Nausea and vomiting, unspecified vomiting type 12/18/2021 ??? History of colonoscopy with polypectomy 10/07/2021 ??? Hepatic steatosis 10/04/2021 ??? Periumbilical abdominal pain 09/24/2021 ??? Irritable bowel syndrome with both constipation and diarrhea 09/24/2021 ??? Chronic nausea 09/24/2021 ??? History of repair of hiatal hernia 09/24/2021 ??? Gastroesophageal reflux disease without esophagitis 09/24/2021 ??? Dysuria 08/13/2021 ??? Hypokalemia ??? TIA (transient ischemic attack) 08/11/2021 ??? Cyclic vomiting syndrome 08/09/2021 ??? Bipolar affect, depressed (HCC) 08/09/2021 ??? Intussusception intestine (CMS/HCC) (HCC) 08/09/2021 ??? Hypertension 08/08/2021 ??? Abdominal pain, generalized 08/08/2021 ??? Atrial fibrillation (CMS/HCC) ([facility]) 05/15/2020 ??? Essential tremor 10/12/2018 ??? Jerky body movements 10/12/2018 ??? Irritable bowel syndrome with both constipation and diarrhea 02/23/2018 ??? Orthostatic dizziness 09/16/2016 ??? Palpitations 07/29/2016 ??? Migraine headache 07/29/2016 Past Medical History: Diagnosis Date ??? A-fib (CMS/HCC) (HCC) ??? Anemia ??? Anxiety ??? Arthritis ??? Bipolar affect, depressed (HCC) ??? Chronic nausea 09/24/2021 ??? Colon polyp ??? Cyclic vomiting syndrome ??? Depression ??? Headache, tension-type ??? Hypertension ??? Hypotension ??? IBS (irritable bowel syndrome) ??? Migraine ??? Nausea and vomiting, unspecified vomiting type 12/18/2021 ??? Stroke (HCC) TIA ??? Weight loss Past Surgical History: Procedure Laterality Date ??? ABDOMINAL SURGERY 2012 hiatel hernia repair ??? ARTHROSCOPIC SURGERY Left 1984,1994,2001 knee ??? SECTION 1992 ??? CHOLECYSTECTOMY ??? COLONOSCOPY 1-2yrs ago ??? COLONOSCOPY 10/29/2022 ??? ENDOMETRIAL ABLATION ??? HERNIA REPAIR ??? POLYPECTOMY ??? TUBAL LIGATION Family History Problem Relation Age of Onset ??? Esophageal cancer Maternal Grandmother ??? Heart disease Maternal Grandmother ??? Stroke Maternal Grandmother ??? Hypertension Maternal Grandmother ??? Migraines Mother Social History Tobacco Use ??? Smoking status: Former Types: Vaping, Cigarettes Start date: 1983 Quit date: 2000 Years since quittin.0 ??? Smokeless tobacco: Never ??? Tobacco comments: off and on Vaping Use ??? Vaping Use: Every day ??? Start date: 10/02/2014 ??? Substances: Nicotine, Flavoring ??? Devices: Pre-filled or refillable cartridge, Refillable tank Substance and Sexual Activity ??? Alcohol use: No Comment: on occasion ??? Drug use: Yes Types: Marijuana Comment: occasionally last used 1-3-24 ??? Sexual activity: Defer control/protection: Post-menopausal Social History Social History Narrative ??? Not on file Review of Systems Review of Systems Gastrointestinal: Positive for abdominal pain. All other systems reviewed and are negative. Physical Exam ED Triage Vitals [09/08/23 1854] Temp Pulse Resp BP SpO2 36.4 ??C (97.6 ??F) 78 18 106/56 100 % Temp src Heart Rate Source Patient Position BP Location FiO2 (%) -- -- -- -- -- Height Height Method Weight Weight Method -- -- 59 kg (130 lb) -- Physical Exam Vitals and nursing note reviewed. Constitutional: General: She is not in acute distress. Appearance: She is well-developed. She is not ill-appearing, toxic-appearing or diaphoretic. HENT: Head: Normocephalic and atraumatic. Eyes: Extraocular Movements: Extraocular movements intact. Cardiovascular: Rate and Rhythm: Normal rate. Heart sounds: Normal heart sounds. Pulmonary: Effort: Pulmonary effort is normal. Breath sounds: Normal breath sounds. Abdominal: General: Bowel sounds are normal. Palpations: Abdomen is soft. Tenderness: There is abdominal tenderness in the right lower quadrant. Skin: General: Skin is warm and dry. Capillary Refill: Capillary refill takes less than 2 seconds. Coloration: Skin is not mottled or pale. Findings: No rash. Neurological: General: No focal deficit present. Mental Status: She is alert and oriented to person, place, and time. MDM NIH Score Medical Decision Making 53-year-old A&O x4 female patient with multiple comorbidities presents for evaluation of continuing right lower quadrant pain. She states this has been ongoing for the past few months, is currently working with Dr. Liang. Due to no resolution of symptoms, they are scheduled an appendectomy for tomorrow despite any current signs of appendicitis. She states she was due to arrive here tomorrow at 7:45 a.m., surgery scheduled for 9:15 a.m.. She states her pain and nausea has been too difficult to control at home, presents for evaluation. Denies change in her type of pain just states it wasworse than normal. Denies associated fever, chills, emesis, bowel change, diarrhea, dyspnea, chest pain. No recent trauma. Denies dysuria, hematuria, pyuria Physical exam shows mild tenderness to right lower quadrant. Otherwise unremarkable Differential: Chronic right lower quadrant pain. Doubt pancreatitis. Doubt other infectious process Plan: Labs, symptom control. Patient would prefer at this time to go home and not stay overnight. We will attempt IV medications and re-evaluate Risk Prescription drug management. ED Course as of 09/09/23 0247 Time: 09/08 4687 Comment: Denies any change in improvement, is wanting be admitted at this time By: Tianna Churchill PA Time: 09/08 2348 Value: Comprehensive metabolic panel: Sodium 141 Potassium, pl 3.4 Chloride 106 CO2 25 Anion gap 11 BUN 7 Creatinine 0.68 Glucose 110 Calcium 9.6 Bilirubin, total 0.4 Protein, pl 7.6 Albumin 4.5 Alk phos 90 ALT 34 AST 37 Comment: Unremarkable By: Tianna Churchill PA Time: 09/08 2348 Value: Lipase: Lipase, Serum 35 Comment: Unremarkable By: Tianna Churchill PA Time: 09/08 2348 Value: CBC with auto differential(!): WBC 7.5 Hgb 10.6(!) Hct 33.3(!) Plt 333 MPV 10.0 RBC 3.98 MCV 83.7 MCH 26.6(!) MCHC 31.8(!) RDW CV 18.7(!) RDW SD 55.2(!) NRBC abs 0.00 Comment: Chronic anemia By: Tianna Churchill PA Time: 09/09 11 Comment: I spoke to Dr. Liang who recommends obtaining advanced imaging/CT to rule out other causes of ongoing abdominal pain. He said on previous image she had an irregular appendix. 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 This is of uncertain clinical significance. Slight thickening of the wall of the appendix with small appendicolith proximally. No definite acute findings of the appendix. Please correlate with clinical factors. No aortic aneurysm or dissection. No acute finding. By: Matilde Knowles MD Time: 09/09 34 Comment: Transferring care to Dr. Knowles d/t shift change. Pending CT for dispo By: Tianna Churchill PA Time: 09/09 128 Value: CT Abdomen Pelvis W Contrast Comment: IMPRESSION: Persistent ascending colonic wall thickening mucosal hyperenhancement compared to 08/19/2023. This finding is new compared to 09/04/2022. These findings are most compatible with colitis. However given persistence since 08/19/2023, underlying mass can not be excluded. Recommend follow-up colonoscopy when clinically feasible if not recently performed for further evaluation. Normal appendix. By: Matilde Knowles MD Time: 09/09 129 Value: WBC: 7.5 Comment: Normal By: Matilde Knowles MD Time: 09/09 0130 Value: Hgb(!): 10.6 Comment: Baseline By: Matilde Knowles MD Time: 09/09 0155 Comment: Dr. Egan accepts patient for admission for GI consultation. We discussed antibiotics. The patient denies diarrhea. She says she was having formed stools that are sometimes mucousy. No fever. No white count. These symptoms have been going on for months. I have a low suspicion for acute in fectious or bacterial cause of symptoms. Will hold off on antibiotics. By: Matilde Knowles MD Time: 09/09 0246 Comment: Patient produced a stool sample. Gross description of the specimen: Small, 1 or 2 grams I would estimate, solid light brown formed stool chunk. No gross blood or melena. No mucous observed. It is definitely not diarrhea. Discussing with the hospitalist to see if any test should be run on this normal appearing stool sample. By: Matilde Knowles MD Final diagnoses: Chronic abdominal pain Tianna Churchill PA 09/09/23 0047 Cosigned by Matilde Knowles MD at 09/09/2023 3:22 AM NURSERY WORKER ERY WORKER ERY WORKER * Geoff Renee, RN - 09/08/2023 6:52 PM CST Patient complains of RLQ abdominal pain and nausea that started this morning. Patient states she isscheduled to have an appendectomy in the morning. ERY WORKER documented in this encounter Miscellaneous Notes * Initial Assessments - Queenie Byrnes RN - 09/09/2023 3:18 PM CST CM Low Risk Discharge Planning Assessment Note Primary Care Provider: Parmjit Ewing MD Preferred Pharmacy: No Pharmacies Listed Who does the patient or legal guardian want to receive education instruction and discharge plans for after care assistance?: Decline Living Arrangements: Spouse/significant other, Family members (09/09/23 030) Additional Information and Discharge Plan: DC plan discussed with patient and at bedside. Goal is to return home-lives with her and he will be her ride home. Independent and doesn't use any equipment for mobility. Had a lap appy this morning. Barrier to dc is recovery after surgery.No home needs noted at this time. Queenie Byrnes RN Phone Number: ERY WORKER * Op Note - Jared Liang MD - 09/09/2023 9:36 AM CST NAME: Sarahy Mays DATE OF : 1970 SURGEON: Jared Liang MD CHOCOLATE COATER:Supervisor Sample Preparation: Debbie Rich RN Scrub: Halina Vieira RN LEARNING CENTER COORDINATOR: Funmi Gilmore NP FLOAT: Annie Regalado RNFA DATE OF SURGERY: 09/09/2023 PREOP DIAGNOSES: Chronic right lower quadrant pain POSTOP DIAGNOSES: Mild inflammation of distal tip of appendix PROCEDURE: Laparoscopic appendectomy INDICATIONS OF PROCEDURE: The patient is a 53-year-old female with several months of chronic right lower quadrant abdominal pain. Imaging at 1 point demonstrated a mildly dilated appendix with an appendicolith present. She would underwent upper and lower endoscopy by GI without significant finding. We discussed with the patient performing an appendectomy with her knowing that this may not make any difference with regards to the right lower quadrant pain. She was set up for elective surgery but presented to the ER for worsening pain. We proceeded with diagnostic laparoscopy and appendectomy. FINDINGS: The distal tip of the appendix did appear to be mildly injected. The ascending colon that was read as potential colitis on imaging appeared without abnormality. The small bowel was run from the ligament of Treitz to the terminal ileum without any findings. The stomach and liver appeared normal. Thesigmoid colon was redundant but without inflammation. The uterus and left ovary was normal. There was changes with partial oophorectomy or some resection of the adnexal structure on the right. DETAILS OF PROCEDURE: After informed consent was obtained the patient was taken to the operating room and placed supine on the operating table. SCD boots were applied to bilateral lower extremities. General endotracheal intubation was achieved. Perioperative antibiotics were administered and a preoperative time-out completed. The patient was then prepped and draped in standard sterile fashion. Attention was directed towards the abdomen where a 1 cm supraumbilical incision was made. Using Optiview technique a 5 mm trocar and 0 degree scope was inserted into the abdominal cavity under direct visualization. No bowel noted to be in the vicinity of this initial trocar entrance. The abdomen was insufflated to 15 mm ofmercury. A 12 mm trocar was placed in the left mid abdomen with care taken to avoid injury to the inferior epigastric vessels. A 5 mm port was placed in the suprapubic location with care taken to avoid injury to the bladder. At this time the patient was placed head down and rotated to her left. Thesmall bowel was grasped and retracted out of the pelvis. At this time the appendix came into view. The distal tip was noted to be mildly inflamed. At this time the appendix was grasped and elevated. The mesoappendix was taken down with the Harmonic scalpel. This was done until the base of the appendix was freed as it entered the cecum. At this time a linear stapler was inserted and the base of the appendix divided with a single firing of a purple load. The appendix was then grasped and brought through the 12 mm trocar. At this time the appendiceal base was inspected. It was found to be hemostatic. The remaining abdomen was then inspected. The ascending colon that was read as potential colitis on imaging was without abnormality. The small bowel was run from Treitz to terminal ileum withoutpathology. The liver and stomach appeared normal. The sigmoid colon was redundant but again withoutany inflammation or signs of diverticulitis. The left ovary and tube structures appeared without abnormality as well as the uterus. The right adnexal structures had a partial resection either of a portion of the ovary or tubes at some point. At this point we are happy that there was no other identifiable cause of the pain within the right abdomen. Trocars were removed under direct visualization and pneumoperitoneum evacuated. The fascia of the 12 mm trocar was closed with a [id number] 0 Vicryl stitch. The skin of all trocar sites were closed with interrupted 4 0 Monocryl subcuticular stitches. Dermabond was then applied. The patient was awoken from anesthesia and transferred to recovery in stable condition. At the end of the procedure all sponge, needle and instrument counts were reported to be correct x2 at the end of the case. ANESTHESIA: General. Plus 10 cc of 0.5% Marcaine with epinephrine COMPLICATIONS: None BLOOD LOSS: 10 cc SPECIMEN: Appendix Jared Liang MD 09/09/2023 10:20 AM ERY WORKER * Plan of Care - Teri Acosta RN - 09/09/2023 4:17 AM CST Problem: Health Behavior: Goal: Understanding of discharge needs will improve Outcome: Ongoing Problem: Lack of Knowledge: Goal: Verbalization of understanding the information provided will improve Outcome: Ongoing Problem: Fluid Volume: Goal: Maintenance of adequate hydration will improve Outcome: Ongoing Goal: Will show no signs and symptoms of electrolyte imbalance Outcome: Ongoing Problem: Nutritional: Goal: Maintenance of adequate nutrition will improve Outcome: Ongoing Problem: Sensory: Goal: Occurrences of nausea will decrease Outcome: Ongoing Goals: Clinical Goals for the Shift: Patient to remain hemodynamically stable this shift. Summary: Patient orientated to the unit. PRN for nausea given as per order. Up to bathroom with SBA. NPO for surgery later this morning. IV SL. ERY WORKER * ED Re-evaluation Note - Matilde Knowles MD - 09/09/2023 12:16 AM NURSERY WORKER ED Re-evaluation Portions of the record may have been created with voice recognition software. Occasional wrong-word or '[id number]' substitutions may have occurred due to the inherent limitations of voice recognition software. Read the chart carefully and recognize, using context, where substitutions have occurred. I have reviewed and interpreted all of the currently available lab results from this visit (if applicable): Labs Reviewed CBC WITH AUTO DIFFERENTIAL - Abnormal Result Value WBC 7.5 Hgb 10.6 (*) Hct 33.3 (*) Plt 333 MPV 10.0 RBC 3.98 MCV 83.7 MCH 26.6 (*) MCHC 31.8 (*) RDW CV 18.7 (*) RDW SD 55.2 (*) NRBC abs 0.00 URINALYSIS AND REFLEX TO MICROSCOPIC AND CULTURE COMPREHENSIVE METABOLIC PANEL Sodium 141 Potassium, pl 3.4 Chloride 106 CO2 25 Anion gap 11 BUN 7 Creatinine 0.68 Glucose 110 Calcium 9.6 Bilirubin, total 0.4 Protein, pl 7.6 Albumin 4.5 Alk phos 90 ALT 34 AST 37 LIPASE Lipase 35 DIFFERENTIAL AUTO Neutrophil abs 5.8 Imm gran abs 0.0 Lymphocyte abs 1.2 Monocyte abs 0.5 Eosinophil abs 0.0 Basophil abs 0.0 Neutrophil pct 76.5 Imm gran pct 0.1 Lymphocyte pct 15.8 Monocyte pct 6.9 Eosinophil pct 0.3 Basophil pct 0.4 EGFR eGFR 103 Radiographs (if obtained): Report Reviewed: CT Abdomen Pelvis W Contrast Final Result EKG (if obtained): (All EKGs are interpreted by myself in the absence of a med surg rn) Procedures Chart/outside records review shows: Reviewed recent CT scan that showed appendicolith ED course/MDM: External chart review: (details typically documented under ED workup or in chart/outside record review above in my note, if obtained) History obtained by: (Typically documented in the HPI section, sometimes in ED course when obtainedfrom additional historians but not at the initial time of patient presentation.) Discussion of management: (typically conversations time stamped and documented in ED course), Independent interpretation studies: (typically documented in ED course and please note that labs and Radiology reads obtained in the ED and listed above have been reviewed) Vitals: 09/09/23 0235 09/09/23 0240 09/09/23 0245 09/09/23 0250 BP: Pulse: 71 71 79 75 Resp: 12 10 11 9 Temp: SpO2: 100% 100% 100% 100% Weight: ED Course as of 09/09/23 0301 Time: 09/08 2347 Comment: Denies any change in improvement, is wanting be admitted at this time By: Tianna Churchill PA Time: 09/08 2348 Value: Comprehensive metabolic panel: Sodium 141 Potassium, pl 3.4 Chloride 106 CO2 25 Anion gap 11 BUN 7 Creatinine 0.68 Glucose 110 Calcium 9.6 Bilirubin, total 0.4 Protein, pl 7.6 Albumin 4.5 Alk phos 90 ALT 34 AST 37 Comment: Unremarkable By: Tianna Churchill PA Time: 09/08 2348 Value: Lipase: Lipase, Serum 35 Comment: Unremarkable By: Tianna Churchill PA Time: 09/08 2348 Value: CBC with auto differential(!): WBC 7.5 Hgb 10.6(!) Hct 33.3(!) Plt 333 MPV 10.0 RBC 3.98 MCV 83.7 MCH 26.6(!) MCHC 31.8(!) RDW CV 18.7(!) RDW SD 55.2(!) NRBC abs 0.00 Comment: Chronic anemia By: Tianna Churchill PA Time: 09/09 11 Comment: I spoke to Dr. Liang who recommends obtaining advanced imaging/CT to rule out other causes of ongoing abdominal pain. He said on previous image she had an irregular appendix. 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 This is of uncertain clinical significance. Slight thickening of the wall of the appendix with small appendicolith proximally. No definite acute findings of the appendix. Please correlate with clinical factors. No aortic aneurysm or dissection. No acute finding. By: Matilde Knowles MD Time: 09/09 34 Comment: Transferring care to Dr. Knowles d/t shift change. Pending CT for dispo By: Tianna Churchill PA Time: 09/09 128 Value: CT Abdomen Pelvis W Contrast Comment: IMPRESSION: Persistent ascending colonic wall thickening mucosal hyperenhancement compared to 08/19/2023. This finding is new compared to 09/04/2022. These findings are most compatible with colitis. However given persistence since 08/19/2023, underlying mass can not be excluded. Recommend follow-up colonoscopy when clinically feasible if not recently performed for further evaluation. Normal appendix. By: Matilde Knowles MD Time: 09/09 129 Value: WBC: 7.5 Comment: Normal By: Matilde Knowles MD Time: 09/09 129 Value: Hgb(!): 10.6 Comment: Baseline By: Matilde Knowles MD Time: 09/09 154 Comment: Dr. Egan accepts patient for admission for GI consultation. We discussed antibiotics. The patient denies diarrhea. She says she was having formed stools that are sometimes mucousy. No fever. No white count. These symptoms have been going on for months. I have a low suspicion for acute in fectious or bacterial cause of symptoms. Will hold off on antibiotics. By: Matilde Knowles MD Time: 09/09 245 Comment: Patient produced a stool sample. Gross description of the specimen: Small, 1 or 2 grams I would estimate, solid light brown formed stool chunk. No gross blood or melena. No mucous observed. It is definitely not diarrhea. Discussing with the hospitalist to see if any test should be run on this normal appearing stool sample. By: Matilde Knowles MD MDM: 53-year-old presenting with chronic abdominal pain. No diarrhea. A previous CT scan showed abnormal appendix so she was going to get her appendix out this morning. But now her appendix is normalon CT so that may not happen. Certain recommended further workup to find out cause of chronic abdominal pain and a repeat CT scan was obtained that showed possible colitis. The patient has no diarrhea. She was hemodynamically stable. She has no elevated white count. Will admit for further workup and treatment of symptoms. No indication for antibiotics at this time. Shared decision-making: Patientis agreeable to admission Clinical Impression: 1. Chronic abdominal pain Disposition: Admit (Please note that portions of this note may have been completed with a voice recognition program. Ultrasound Technol errors occur. Please contact me for any clarification.) Matilde Knowles MD 09/09/23 0302 ERY WORKER documented in this encounter Plan of Treatment Upcoming Encounters Date Type Department Care Team (Latest Contact Info) Description 09/07/2024 8:30 AM NURSERY WORKER Hospital Encounter [facility] [address] [place] [phone] Forest Catherine MD [address] [address] 09/07/2024 8:30 AM NURSERY WORKER - 09/07/2024 9:00 AM NURSERY WORKER Surgery [facility] [address] [place] [phone] Forest Catherine MD [address] [address] EGD w/Endo Flip & YI placement Scheduled Procedures Name Priority Associated Diagnoses Date/Ti me ESOPHAGOGASTRODUODENOSCOPY Hiatal hernia Gastroesophageal reflux disease, unspecified whether esophagitis present 09/07/2024 8:30 AM NURSERY WORKER documented as of this encounter Procedures Procedure Name Priority Date/Time Associated Diagnosis Comments SURGICAL PATHOLOGY Routine 09/09/2023 11 :04 AM NURSERY WORKER Acute appendicitis, unspecified acute appendicitis type LAPAROSCOPIC APPENDECTOMY 09/09/2023 9:01 AM NURSERY WORKER APPENDIX DISEASE [K38.9] ABO/RH STAT 09/09/2023 8:11 AM NURSERY WORKER ANTIBODY SCREEN STAT 09/09/2023 8:11 AM NURSERY WORKER TYPE AND SCREEN STAT 09/09/2023 8:11 AM NURSERY WORKER EGFR Routine 09/09/2023 7:58 AM NURSERY WORKER CBC WITHOUT DIFFERENTIAL Routine 09/09/2023 7:58 AM NURSERY WORKER COMPREHENSIVE METABOLIC PANEL Routine 09/09/2023 7:58 AM NURSERY WORKER URINALYSIS AND REFLEX TO MICROSCOPIC AND CULTURE STAT 09/09/2023 2:[address] ABDOMEN PELVIS W CONTRAST ED 09/09/2023 12:52 AM NURSERY WORKER EGFR STAT 09/08/2023 6:59 PM NURSERY WORKER DIFFERENTIAL AUTO STAT 09/08/2023 6:5 9 PM NURSERY WORKER CBC WITH AUTO DIFFERENTIAL STAT 09/08/2023 6:59 PM NURSERY WORKER LIPASE STAT 09/08/2023 6:59 PM NURSERY WORKER COMPREHENSIVE METABOLIC PANEL STAT 09/08/2023 6:59 PM NURSERY WORKER documented in this encounter Results * Surgical pathology (09/09/2023 11:04 AM NURSERY WORKER) Tissue (Appendix) 09/09/2023 9:44 AM NURSERY WORKER Comment:Dx right lower quadr ant pain Narrative [facility] ([place]) - 09/11/2023 10:29 AM NURSERY WORKER EPIC results best viewed via link to PDF [facility] Department of Pathology [address] [place] [id number] Note to Patients: This report may contain [...] can answer questions and explain the details. Final Report Patient Name: ??SARAHY MAYS Address: ??[address] [place] [address], ??[place], [place] ?? Gender: ??F : ??1970 (Age: 53) Service: ??Surgery Location: ??[facility] Hospital #: ??[id number] Patient Type: ??[facility] EP OP in bed Accession # ?[id number] Taken: ??09/09/2023 Received: ??09/09/2023 Accessioned: ??09/09/2023 Reported: ??09/11/2023 Physician(s):Jared Liang MD Diagnosis: A. ??Appendix, laparoscopic appendectomy: ? Benign appendix with impacted fecal material and focal acute inflammation ? Consistent with early acute appendicitis ?? Victoria Saravia M.D. Report Electronically Reviewed and Signed Out By ??Victoria Saravia M.D. ??09/11/2023 10:29:10 Specimen(s) Received: A: Appendix Microscopic Description: Microscopic examination corroborates the diagnosis. ??Initially submitted tissue shows benign appendix with impacted fecal material with slight mural attenuation but does not demonstrate significant acute inflammation. ??The remaining appendix is submitted, showing additional impacted fecal material with surrounding acute inflammation within the lumen with associated reactive epithelial changes and focal intraepithelial neutrophils, consistent with early acute appendicitis. Clinical History: APPENDIX DISEASE [K38.9] Laparoscopic Appendectomy Gross Description: The specimen is submitted in a single formalin filled container labeled with SARAHY MAYS and appendix . ??It is a vermiform appendix that measures 6 x 0.8 cm. ??The serosa is congested but smooth. ??The wall is intact and measures up to 0.3 cm in thickness. ??Soft fecal matter is present within the lumen. ??Represented in 1 cassette. ??Remaining tissue is submitted in A2 T.Stanford Zuñiga R.N. PYobany./Victoria Saravia M.D. REPORT IMAGES AND SCANNED DOCUMENTS, IF INCLUDED, ONLY VIEWABLE IN PDF VERSION OF REPORT The performance characteristics of some immunohistochemical stains, fluorescence in-situ hybridization tests and immunophenotyping by flow cytometry cited in this report (if any) were determined by the Surgical Pathology Department at [facility] as part of an ongoing type disk quality control supervisor program and in compliance with federally mandated [...] a high complexity laboratory under CLIA '88. The FDA has determined that such clearance or approval is not necessary. ??This test is used for clinical purposes. ??It should not be regarded as investigational or for research. ??Nevertheless, federal rules concerning the medical use of analyte specific reagents require that the following disclaimer be attached to the report: This test was developed and its performance characteristics determined by the Surgical Pathology Department [facility]. ??It has not been cleared or approved by the U. S. Food and Drug Administration. Note for decalcified specimens: This assay has not been validated on decalcified tissues. Results should be interpreted with caution given the possibility of false negativity on decalcified specimens us Jared Liang MD LAB PATHOLOGY OR DERABLES Final Result PATHOLOGY [facility] ([place]) [address] [place], [place] [id number] * Antibody screen (09/09/2023 8:11 AM NURSERY WORKER) Hola, indirect, Gel Interpretation Negative ABSC [facility] ([place]) Blood 09/09/2023 8:11 AM NURSERY WORKER 09/09/2023 8:29 AM NURSERY WORKER Narrative [facility] ([place]) - 09/09/2023 9:10 AM NURSERY WORKER Has the patient had Daratumumab or Isatuximab in the past 6 months?->Unknown Jared Liang MD LAB BLOOD BANK T EST ORDERABLES Final Result Performing Organization Address [facility] Co de Phone Number [facility] ([place]) 1 [facility] [place] [address] * ABO/Rh (09/09/2023 8:11 AM NURSERY WORKER) ABO/Rh B Positive [facility] ([place]) Blood 09/09/2023 8:11 AM NURSERY WORKER 09/09/2023 8:29 AM NURSERY WORKER Narrative [facility] ([place]) - 09/09/2023 9:10 AM NURSERY WORKER Has the patient had Daratumumab or Isatuximab in the past 6 months?->Unknown Jared Liang MD LAB BLOOD BANK T EST ORDERABLES Final Result Performing Organization Address [facility] de Phone Number [facility] ([place]) 1 [facility] [place] [address] * eGFR (09/09/2023 7:58 AM NURSERY WORKER) eGFR 104 mL/min/1. 73 m2 [facility] ([place]) Comment: [...] interpretive data was last reviewed 2021. Blood 09/09/2023 7:58 AM NURSERY WORKER 09/09/2023 8:04 AM NURSERY WORKER us Ryan Nation Jr., MD LAB BLOOD ORDERABLE S Final Result [facility] ([place]) 1 [facility] [place] [address] * Comprehensive metabolic panel (09/09/2023 7:58 AM NURSERY WORKER) Sodium 144 135 - 145 mmol/L [facility] Potassium, pl 3.7 3.3 - 4.9 mmol/L [facility] ([place]) Chloride 109 97 - 110 mmol/L [facility] ([place]) CO2 25 22 - 32 mmol/L [facility] ([place] Anion gap 10 2 - 15 mmol/L [facility] BUN 10 6 - 25 mg/dL [facility] ([place]) Creatinine 0.66 0.60 - 1.10 mg/dL [facility] ([place]) Glucose 105 70 - 199 mg/dL [facility] ([place]) [...] interpretive data was last revised 2022. Calcium 9.0 8.5 - 10.3 mg/dL [facility] ([place]) Bilirubin, total 0.3 0.1 - 1.2 mg/dL [facility] ([place]) Protein, pl 6.9 6.5 - 8.5 g/dL [facility] ([place]) Albumin 4.2 3.5 - 5.0 g/dL [facility] ([place]) Alk phos 85 40 - 130 Units/L [facility] ([place]) ALT 34 7 - 45 Units/L [facility] ([place]) AST 38 10 - 45 Units/L [facility] ([place]) Blood 09/09/2023 7:58 AM NURSERY WORKER 09/09/2023 8:04 AM NURSERY WORKER us Ryan Nation Jr., MD LAB BLOOD ORDERABLE S Final Result [facility] ([place]) 1 [facility] [place] [address] * (ABNORMAL) CBC without differential (09/09/2023 7:58 AM NURSERY WORKER) WBC 9.0 3.8 - 9.9 K/cumm [facility] ([place]) Hgb 10.2(L) 11.9 - 15.5 g/dL [facility] ([place]) Hct 33.2(L) 35.6 - 45.5 % [facility] ([place]) Plt 321 150 - 400 K/cumm [facility] ([place]) MPV 10.1 9.1 - 12.3 fL [facility] ([place]) RBC 3.90 3.90 - 5.20 M/cumm [facility] ([place]) MCV 85.1 81.3 - 96.4 fL [facility] ([place]) MCH 26.2(L) 27.1 - 33.3 pg [facility] ([place]) MCHC 30.7(L) 32.3 - 35.7 g/dL [facility] ([place]) RDW CV 19.8(H) 11.1 - 14.9 % [facility] ([place]) RDW SD 58.6(H) 35.7 - 48.1 fL [facility] ([place]) NRBC abs 0.00 0.00 - 0.01 K/cumm [facility] ([place]) Blood 09/09/2023 7:58 AM NURSERY WORKER 09/09/2023 8:04 AM NURSERY WORKER us Ryan Nation Jr., MD LAB BLOOD ORDERABLE S Final Result [facility] ([place]) 1 [facility] [place] [address] * (ABNORMAL) Urinalysis reflex to microscopic and culture Urine (09/09/2023 2:28 AM NURSERY WORKER) Color, ur Yellow Yellow [facility] ([place]) Clarity, ur Clear Clear [facility] ([place]) Specific gravity, ur OVER 1.003 - 1.030 [facility] ([place]) pH, urine 8.0 [facility] ([place]) Comment: Interpretive Data ? Urine pH is affected by diet, medications, systemic acid-base disturbances, and renal tubular function. ??pH may affect urinary stone formation. ??For example, urine pH below 6.0 may help reduce the tendency for calcium phosphate stones and pH greater than 6.0 may reduce the tendency for uric acid stone formation. Source: [facility] [place] Current Interpretive Data was last revised on 2017 Protein, ur ql Trace Negative [facility] ([place]) Glucose, ur ql Negative Negative [facility] ([place]) Ketones, ur 1+(A) Negative [facility] ([place]) Bilirubin, ur Negative Negative [facility] ([place]) Blood, ur Negative Negative [facility] ([place]) Urobilinogen, ur <2.0 <2.0 mg/dL [facility] ([place]) Nitrite, ur Negative Negative [facility] ([place]) Leukocyte esterase, ur Negative Negative [facility] ([place]) UA reflex comment Reflex conditions for microscopic UA and culture not met. [facility] ([place]) Urine 09/09/2023 2:28 AM NURSERY WORKER 09/09/2023 5:46 AM NURSERY WORKER us Matilde Knowles MD LAB MICROBIOLOGY - GENER AL ORDERABLES Final Result [facility] ([place]) 1 [facility] [place] [address] * CT Abdomen Pelvis W Contrast (09/09/2023 12:52 AM NURSERY WORKER) Anatomical Region Laterality Modality Body N/A Computed Tomogra phy 09/09/2023 12:5 5 AM NURSERY WORKER Narrative 09/09/2023 1:07 AM NURSERY WORKER EXAM DESCRIPTION: ?? CT ABDOMEN PELVIS W CONTRAST REASON FOR STUDY: ?? RLQ abdominal pain, appendicitis suspected (Age => 12y) ?? Right sided lower abdominal pain started yesterday ??Scheduled for appendectomy today ??No surgeries ??No cancer ??HTN ?? Hx of hysterectomy ??Hx of hernia repair ?? Hx of cholecystectomy ??Hx of ablation ? TECHNIQUE: CT scan of the abdomen and [...] ?? injected via ?? intravenous COMPARISON: ?? 08/19/2023 REFERENCE: Per ACR white paper recommendations, unless otherwise specified no follow-up imaging is recommended for incidental renal and adrenal lesions per consensus recommendations based on imaging criteria. Further lab evaluation could be pursued based on clinical findings. FINDINGS: LOWER CHEST: ?? No significant pulmonary abnormalities. No effusion. LIVER: ?? Normal size. ??No identified cystic or solid masses. GALLBLADDER: ?? Surgically absent. BILE DUCTS: ?? No intrahepatic or extrahepatic ductal dilatation. SPLEEN: ?? Normal size. ??No focal lesions. PANCREAS: ?? No identified cystic or solid masses. No significant calcifications. No adjacent inflammation or peripancreatic fluid collections. Pancreatic duct not dilated. ?? ADRENALS: ?? Normal. KIDNEYS/URINARY TRACT: ?? Kidneys enhance symmetrically. ?? Redemonstrated right upper pole cystic lesion similar in size compared to prior examination. ??Left kidney has a normal CT appearance. ??No hydronephrosis. ?? Urinary bladder is unremarkable. GI: ?? There is persistent colonic wall thickening ascending colon mucosal hyperenhancement compared to 08/19/2023. ??This finding is new compared to 09/04/2022. ??The appendix is normal. ??There is a 2 mm appendicolith in the distal portion of the appendix. PERITONEUM: ?? No ascites or free air. RETROPERITONEUM: ?? No mass or adenopathy. REPRODUCTIVE: ?? No significant abnormality. VASCULATURE: ?? No abdominal aortic aneurysm. MUSCULOSKELETAL: ?? No acute findings. ??Mild multilevel degenerative intervertebral disc height loss. ??There is dextroscoliosis. OTHER: ?? No other abnormality. IMPRESSION: Persistent ascending colonic wall thickening mucosal hyperenhancement compared to 08/19/2023. This finding is new compared to 09/04/2022. These findings are most compatible with colitis. ??However given persistence since 08/19/2023, underlying mass can not be excluded. ??Recommend follow-up colonoscopy when clinically feasible if not recently performed for further evaluation. Normal appendix. THIS IS AN ELECTRONICALLY VERIFIED FINAL REPORT 09/09/2023 1:07 AM - Electronically signed by ??Parmjit Herrera M.D. BB: BÁRBARA D: ??09/09/2023 1:07 AM T: ??09/09/2023 1:07 AM Report ID: [id number] Reading Location: ??[id number] Procedure Note Parmjit Herrera MD PhD - 09/09/2023 EXAM DESCRIPTION: CT ABDOMEN PELVIS W CONTRAST REASON FOR STUDY: RLQ abdominal pain, appendicitis suspected (Age =>12y) Right sided lower abdominal pain started yesterday Scheduled forappendectomy today No surgeries No cancer HTN Hx of hysterectomy Hx of herniarepair Hx of cholecystectomy Hx of ablation TECHNIQUE: CT scan of the abdomen and pelvis performed with intravenousand without oral contrast using helical scanning technique with dynamic intravenous contrast injection. Reconstructed coronal and sagittal MPRimages reviewed. All images stored on PACS. Automated exposure control was usedas a dose optimization technique for this examination. CONTRAST TYPE/DOSE: 75mL of IOVERSOL 350 MG IODINE/ML INTRAVENOUSSYRINGE injected via intravenous COMPARISON: 08/19/2023 REFERENCE: Per ACR white paper recommendations, unless otherwise specifiedno follow-up imaging is recommended for incidental renal and adrenal lesionsper consensus recommendations based on imaging criteria. Further labevaluation could be pursued based on clinical findings. FINDINGS: LOWER CHEST: No significant pulmonary abnormalities. No effusion. LIVER: Normal size. No identified cystic or solid masses. GALLBLADDER: Surgically absent. BILE DUCTS: No intrahepatic or extrahepatic ductal dilatation. SPLEEN: Normal size. No focal lesions. PANCREAS: No identified cystic or solid masses. No significant calcifications. No adjacent inflammation or peripancreatic fluidcollections. Pancreatic duct not dilated. ADRENALS: Normal. KIDNEYS/URINARY TRACT: Kidneys enhance symmetrically. Redemonstratedright upper pole cystic lesion similar in size compared to prior examination.Left kidney has a normal CT appearance. No hydronephrosis. Urinary bladderis unremarkable. GI: There is persistent colonic wall [...] are most compatible with colitis. However given persistencesince 08/19/2023, underlying mass can not be excluded. Recommend follow-up colonoscopy when clinically feasible if not recently performed for further evaluation. Normal appendix. THIS IS AN ELECTRONICALLY VERIFIED FINAL REPORT 09/09/2023 1:07 AM - Electronically signed by Parmjit Herrera M.D. BB: BÁRBARA Report ID: [id number] Reading Location: [place] [address] Matilde Knowles MD IMG CT PROCEDURES Final Result * eGFR (09/08/2023 6:59 PM NURSERY WORKER) eGFR 103 mL/min/1. 73 m2 [facility] ([place]) Comment: Interpretive Data Reference Interval Normal ?>/= [...] interpretive data was last reviewed 2021. Blood 09/08/2023 6:59 PM NURSERY WORKER 09/08/2023 7:02 PM NURSERY WORKER us Matilde Knowles MD LAB BLOOD ORDERABLES Fin al Result [facility] ([place]) 1 [facility] [place] [address] * Differential, auto (09/08/2023 6:59 PM NURSERY WORKER) Neutrophil abs 5.8 1.5 - 6.5 K/cumm [facility] ([place]) Imm gran abs 0.0 0.0 - 0.1 K/cumm [facility] ([place]) Lymphocyte abs 1.2 0.8 - 3.3 K/cumm [facility] ([place]) Monocyte abs 0.5 0.2 - 0.8 K/cumm [facility] ([place]) Eosinophil abs 0.0 0.0 - 0.5 K/cumm [facility] ([place]) Basophil abs 0.0 0.0 - 0.1 K/cumm [facility] ([place]) Neutrophil pct 76.5 % [facility] ([place]) Comment: Interpretive Data Percent cell count reference ranges are not reported, since discordance with absolute values may lead to misinterpretation of CBC data. Current Interpretive Data was last revised on 2017. Imm gran pct 0.1 % [facility] ([place]) Comment: Interpretive Data Percent cell count reference ranges are not reported, since discordance with absolute values may lead to misinterpretation of CBC data. Current Interpretive Data was last revised on 2017. Lymphocyte pct 15.8 % [facility] ([place]) Comment: Interpretive Data Percent cell count reference ranges are not reported, since discordance with absolute values may lead to misinterpretation of CBC data. Current Interpretive Data was last revised on 2017. Monocyte pct 6.9 % [facility] ([place]) Comment: Interpretive Data Percent cell count reference ranges are not reported, since discordance with absolute values may lead to misinterpretation of CBC data. Current Interpretive Data was last revised on 2017. Eosinophil pct 0.3 % [facility] ([place]) Comment: Interpretive Data Percent cell count reference ranges are not reported, since discordance with absolute values may lead to misinterpretation of CBC data. Current Interpretive Data was last revised on 2017. Basophil pct 0.4 % [facility] ([place]) Comment: Interpretive Data Percent cell count reference ranges are not reported, since discordance with absolute values may lead to misinterpretation of CBC data. Current Interpretive Data was last revised on 2017. Blood 09/08/2023 6:59 PM NURSERY WORKER 09/08/2023 7:02 PM NURSERY WORKER us Matilde Knowles MD LAB BLOOD ORDERABLES Fin al Result [facility] ([place]) 1 [facility] [place] [address] * Lipase (09/08/2023 6:59 PM NURSERY WORKER) Lipase 35 10 - 99 Units/L [facility] Blood (Blood, Venous) 09/08/2023 6:59 PM NURSERY WORKER 09/08/2023 7:02 PM NURSERY WORKER Matilde Knowles MD LAB BLOOD ORDERABLES Fin al Result Performing Organization Address [facility] Co de Phone Number [facility] ([place]) 1 [facility] [place] [address] * Comprehensive metabolic panel (09/08/2023 6:59 PM NURSERY WORKER) Sodium 141 135 - 145 mmol/L [facility] ([place]) Potassium, pl 3.4 3.3 - 4.9 mmol/L [facility] ([place]) Chloride 106 97 - 110 mmol/L [facility] ([place]) CO2 25 22 - 32 mmol/L [facility] ([place]) Anion gap 11 2 - 15 mmol/L [facility] ([place]) BUN 7 6 - 25 mg/dL [facility] ([place]) Creatinine 0.68 0.60 - 1.10 mg/dL [facility] ([place]) Glucose 110 70 - 199 mg/dL [facility] ([place]) [...] interpretive data was last revised 2022. Calcium 9.6 8.5 - 10.3 mg/dL [facility] ([place]) Bilirubin, total 0.4 0.1 - 1.2 mg/dL [facility] ([place]) Protein, pl 7.6 6.5 - 8.5 g/dL [facility] ([place]) Albumin 4.5 3.5 - 5.0 g/dL [facility] ([place]) Alk phos 90 40 - 130 Units/L [facility] ([place]) ALT 34 7 - 45 Units/L [facility] ([place]) AST 37 10 - 45 Units/L [facility] ([place]) Blood 09/08/2023 6:59 PM NURSERY WORKER 09/08/2023 7:02 PM NURSERY WORKER us Matilde Knowles MD LAB BLOOD ORDERABLES Fin al Result [facility] ([place]) 1 [facility] [place] [address] * (ABNORMAL) CBC with auto differential (09/08/2023 6:59 PM NURSERY WORKER) WBC 7.5 3.8 - 9.9 K/cumm [facility] ([place]) Hgb 10.6(L) 11.9 - 15.5 g/dL [facility] ([place]) Hct 33.3(L) 35.6 - 45.5 % [facility] ([place]) Plt 333 150 - 400 K/cumm [facility] ([place]) MPV 10.0 9.1 - 12.3 fL [facility] ([place]) RBC 3.98 3.90 - 5.20 M/cumm [facility] ([place]) MCV 83.7 81.3 - 96.4 fL [facility] ([place]) MCH 26.6(L) 27.1 - 33.3 pg [facility] ([place]) MCHC 31.8(L) 32.3 - 35.7 g/dL [facility] ([place]) RDW CV 18.7(H) 11.1 - 14.9 % [facility] ([place]) RDW SD 55.2(H) 35.7 - 48.1 fL [facility] ([place]) NRBC abs 0.00 0.00 - 0.01 K/cumm [facility] ([place]) Blood (Blood, Venous) 09/08/2023 6:59 PM NURSERY WORKER 09/08/2023 7:02 PM NURSERY WORKER us Matilde Knowles MD LAB BLOOD ORDERABLES Fin al Result [facility] ([place]) 1 [facility] [place] [address] documented in this encounter Visit Diagnoses Diagnosis Chronic abdominal pain- Primary Abdominal pain, unspecified site Chronic abdominal pain Abdominal pain, unspecified site Acute appendicitis, unspecified acute appendicitis type Appendix disease Other and unspecified diseases of appendix Atrial fibrillation (CMS/HCC) ([facility]) Atrial fibrillation Bipolar affect, depressed ([facility]) Bipolar I disorder, most recent episode (or current) depressed, unspecified Chronic anemia Unspecified anemia Chronic nausea Nausea alone Gastroesophageal reflux disease without esophagitis Esophageal reflux History of colonoscopy with polypectomy Other postprocedural status History of repair of hiatal hernia Irritable bowel syndrome with both constipation and diarrhea Nausea and vomiting Nausea with vomiting Iron deficiency anemia Unspecified iron deficiency anemia Appendix disease Other and unspecified diseases of appendix Severe protein-calorie malnutrition (CMS/HCC) ([facility]) Other severe protein-calorie malnutrition Hiatal hernia Diaphragmatic hernia without mention of obstruction or gangrene Gastroesophageal reflux disease, unspecified whether esophagitis present documented in this encounter Admitting Diagnoses Diagnosis Chronic abdominal pain Abdominal pain, unspecified site Appendix disease Other and unspecified diseases of appendix documented in this encounter Administered Medications Inactive Administered Medications - up to 3 most recent administrations Medication Order MAR Action Action Date Dose Rate Site acetaminophen (TYLENOL) tablet 1,000 mg 1,000 mg, oral, Once, On Thu09/09/23 at 0224, For 1 dose Given 09/09/2023 2:36 AM NURSERY WORKER 1,000 mg acetaminophen (TYLENOL) tablet 1,000 mg 1,000 mg, oral, Once, On Thu09/09/23 at 0845, For 1 dose, Pre-Op, Indications: Pre-Emptive AnalgesiaIndications:Pre-E mptive Analgesia Given 09/09/2023 8:11 AM NURSERY WORKER 1,000 mg albuterol 2.5 mg /3 mL (0.083 %) nebulizer solution 2.5 mg 2.5 mg, nebulization, Every 4 hours PRN (respiratory practitioner), wheezing, shortness of breath, Starting on Thu09/09/23 at 0405, This therapy was substituted for Albuterol HFA per protocol. dicyclomine (BENTYL) capsule 20 mg 20 mg, oral, Once, On Thu09/09/23 at 0224, For 1 dose Given 09/09/2023 2:35 AM NURSERY WORKER 20 mg droPERidol (INAPSINE) injection 1.25 mg 1.25 mg, intravenous, Administer over 5 Minutes, Once, On Thu09/09/23 at 0223, For 1 dose Given 09/09/2023 2:35 AM NURSERY WORKER 1.25 mg flecainide (TAMBOCOR) tablet 100 mg 100 mg, oral, 2 times daily, First dose on Thu09/09/23 at 0900 Given 09/09/2023 8:05 AM NURSERY WORKER 100 mg ioversoL (OPTIRAY 350) syringe 75 mL 75 mL, intravenous, Once in imaging, contrast, Starting on Thu09/09/23 at 0042, For 1 dose Contrast Given 09/09/2023 12:43 AM NURSERY WORKER 75 mL ketorolac (TORADOL) 15 mg/mL injection 15 mg 15 mg, intravenous, Once, On Thu09/08/23 at 2220, For 1 dose, For Adult IV push, administer over 15 seconds, Indications: PainIndications:Pain Given 09/08/2023 11:20 PM NURSERY WORKER 15 mg Lactated Ringer's (LR) infusion 75 mL/hr, intravenous, Continuous, Starting on Thu09/09/23 at 0445 New Bag 09/09/2023 4:39 AM NURSERY WORKER 75 mL/hr 75 mL/hr Lactated Ringer's (LR) infusion 30 mL/hr, intravenous, Continuous, Starting on Thu09/09/23 at 0845, Pre-Op New Bag 09/09/2023 9:56 AM NURSERY WORKER Restarted 09/09/2023 9:17 AM NURSERY WORKER New Bag 09/09/2023 8:12 AM NURSERY WORKER 30 mL/hr 30 mL/hr Lactated Ringer's (LR) infusion 125 mL/hr, intravenous, Continuous, Starting on Thu09/09/23 at 1100, Phase I Restarted 09/09/2023 11:10 AM NURSERY WORKER 125 mL/hr 125 m L/hr metoprolol XL (TOPROL-XL) extended release tablet 25 mg 25 mg, oral, Daily, First dose on Thu09/09/23 at 0900, Tablets that are scored may be split, but do not crush, chew, dissolve, open or otherwise manipulate tablet/capsule. Given 09/09/2023 8:05 AM NURSERY WORKER 25 mg ondansetron (ZOFRAN) injection 4 mg 4 mg, intravenous, Administer over 2 Minutes, Once, On Thu09/08/23 at 2216, For 1 dose Given 09/08/2023 11:20 PM NURSERY WORKER 4 mg ondansetron (ZOFRAN) injection 4 mg 4 mg, intravenous, Administer over 2 Minutes, Every 6 hours PRN, nausea, vomiting, if not tolerating PO, Starting on Thu09/09/23 at 0335, Indications: Nausea and VomitingIndications:Nausea and Vomiting Given 09/09/2023 9:21 AM NURSERY WORKER 4 mg Given 09/09/2023 3:52 AM NURSERY WORKER 4 mg ondansetron ODT (ZOFRAN-ODT) disintegrating tablet 4 mg 4 mg, oral, Every 6 hours PRN, nausea, vomiting, Starting on Thu09/09/23 at 0335, Indications: Nausea and VomitingIndications:Nausea and Vomiting sodium chloride 0.9% bolus 1,000 mL 1,000 mL, intravenous, Once, On Thu09/08/23 at 2330, For 1 dose New Bag 09/08/2023 11:30 PM NURSERY WORKER 1,000 mL documented in this encounter Active and Recently Administered Medications Times are shown in NURSERY WORKER. Scheduled Medication Order 09/07/2023 09/08/2023 09/09/2023 acetaminophen (TYLENOL) tablet 1,000 mg (COMPLETED) 1,000 mg, oral, Once, On Thu09/09/23 at 0224, For 1 dose 0236 (Given - Provid er: Leslie Nolan RN) acetaminophen (TYLENOL) tablet 1,000 mg (COMPLETED) 1,000 mg, oral, Once, On Thu09/09/23 at 0845, For 1 dose, Pre-Op, Indications: Pre-Emptive Analgesia 0811 (Given - Provid er: Jessica Angel RN - Comment: took this morning) cefOXitin (MEFOXITIN) 2,000 mg/20 mL in sterile water (premix) 2,000 mg (COMPLETED) 2,000 mg, intravenous, at 400 mL/hr, Administer over 3 Minutes, Once, On Thu09/09/23 at 0845, For 1 dose, Pre-Op, Indications: Prophylaxis, Surgical 0926 (Given - Provid er: Rodri Key CRNA) dicyclomine (BENTYL) capsule 20 mg (COMPLETED) 20 mg, oral, Once, On Thu09/09/23 at 0224, For 1 dose 0235 (Given - Provid er: Leslie Nolan RN) droPERidol (INAPSINE) injection 1.25 mg (COMPLETED) 1.25 mg, intravenous, Administer over 5 Minutes, Once, On Thu09/09/23 at 0223, For 1 dose 0235 (Given - Provid er: Leslie Nolan RN) flecainide (TAMBOCOR) tablet 100 mg 100 mg, oral, 2 times daily, First dose on Thu09/09/23 at 0900 0801 (MAR Hold - Provider: Automatic Transfer Provider - Reason: Patient not available)0801 ([facility] Unhold - Provider: Automatic Transfer Provider)0801 ([facility] Hold - Provider: Automatic Transfer Provider - Reason: Patient not available)0801 ([facility] Unhold - Provider: Automatic Transfer Provider)0802 (MAR Hold - Provider: Automatic Transfer Provider - Reason: Patient not available)0805 (Given - Provider: Hedy Stoll RN)0900 (Dose Auto Held - Provider: Automatic Transfer Provider)1052 ([facility] Unhold - Provider: Hedy Stoll RN) ketorolac (TORADOL) 15 mg/mL injection 15 mg (COMPLETED) 15 mg, intravenous, Once, On Thu09/08/23 at 2220, For 1 dose, For Adult IV push, administer over 15 seconds, Indications: Pain 2320 (Given - Provider: Leslie Nolan, KIET) lubiprostone (AMITIZA) capsule 24 mcg 24 mcg, oral, 2 times daily with meals (bkfst, dinner), First dose on Thu09/09/23 at 0800, Do not crush, chew, cut, dissolve, open or otherwise manipulate tablet/capsule. 0801 ([facility] Hold - Provider: Automatic Transfer Provider - Reason: Patient not available)0801 ([facility] Unhold - Provider: Automatic Transfer Provider)0801 ([facility] Hold - Provider: Automatic Transfer Provider - Reason: Patient not available)0801 ([facility] Unhold - Provider: Automatic Transfer Provider)0802 ([facility] Hold - Provider: Automatic Transfer Provider - Reason: Patient not available)0805 (Not Given - Provider: Hedy Stoll RN - Reason: Hold for Procedure)1052 ([facility] Unhold - Provider: Hedy Stoll, KIET) metoprolol XL (TOPROL-XL) extended release tablet 25 mg 25 mg, oral, Daily, First dose on Thu09/09/23 at 0900, Tablets that are scored may be split, but do not crush, chew, dissolve, open or otherwise manipulate tablet/capsule. 0801 ([facility] Hold - Provider: Automatic Transfer Provider - Reason: Patient not available)0801 ([facility] Unhold - Provider: Automatic Transfer Provider)0801 ([facility] Hold - Provider: Automatic Transfer Provider - Reason: Patient not available)0801 ([facility] Unhold - Provider: Automatic Transfer Provider)0802 ([facility] Hold - Provider: Automatic Transfer Provider - Reason: Patient not available)0805 (Given - Provider: Hedy Stoll RN)0900 (Dose Auto Held - Provider: Automatic Transfer Provider)1052 ([facility] Unhold - Provider: Hdey Stoll, KIET) nortriptyline (PAMELOR) capsule 25 mg 25 mg, oral, Nightly, First dose on Thu09/09/23 at 2100 0801 ([facility] Hold - Provider: Automatic Transfer Provider - Reason: Patient not available)0801 ([facility] Unhold - Provider: Automatic Transfer Provider)0801 ([facility] Hold - Provider: Automatic Transfer Provider - Reason: Patient not available)0801 ([facility] Unhold - Provider: Automatic Transfer Provider)0802 ([facility] Hold - Provider: Automatic Transfer Provider - Reason: Patient not available)1052 ([facility] Unhold - Provider: Hedy Stoll, KIET) ondansetron (ZOFRAN) injection 4 mg (COMPLETED) 4 mg, intravenous, Administer over 2 Minutes, Once, On Thu09/08/23 at 2216, For 1 dose 2320 (Given - Provider: Leslie Nolan RN) pantoprazole DR (PROTONIX) extended release tablet 40 mg 40 mg, oral, Daily, First dose on Thu09/09/23 at 0900, Do not crush, chew, cut, dissolve, open or otherwise manipulate tablet/capsule., Indications: gerd 0801 (MAR Hold - Provider: Automatic Transfer Provider - Reason: Patient not available)0801 ([facility] Unhold - Provider: Automatic Transfer Provider)0801 ([facility] Hold - Provider: Automatic Transfer Provider - Reason: Patient not available)08 (MAR Unhold - Provider: Automatic Transfer Provider)0802 (MAR Hold - Provider: Automatic Transfer Provider - Reason: Patient not available)0900 (Dose Auto Held - Provider: Automatic Transfer Provider)1052 ([facility] Unhold - Provider: Hedy Stoll, KIET) sodium chloride 0.9% bolus 1,000 mL (COMPLETED) 1,000 mL, intravenous, Once, On Thu09/08/23 at 2330, For 1 dose 2330 (New Bag - Provider: Leslie Nolan RN) 0030 (Stopped - Provider: Leslie Nolan RN) Continuous Medication Order 09/07/2023 09/08/2023 09/09/2023 Lactated Ringer's (LR) infusion (CANCELED) 75 mL/hr, intravenous, Continuous, Starting on Thu09/09/23 at 0445 0439 (New Bag - Prov ider: Teri Acosta RN)0805 (Stopped - Provider: Hedy Stoll, KIET) Lactated Ringer's (LR) infusion (CANCELED) 30 mL/hr, intravenous, Continuous, Starting on Thu09/09/23 at 0845, Pre-Op 0812 (New Bag - Prov ider: Jessica Angel, KIET)0916 (Paused - Provider: Rodri Key CRNA - Comment: Switch to gravity)0917 (Restarted - Provider: Rodri Key CRNA)0956 (New Bag - Provider: Rodri Key CRNA)1052 (Due: Stopped - Provider: Jared Liang MD) Lactated Ringer's (LR) infusion 125 mL/hr, intravenous, Continuous, Starting on Thu09/09/23 at 1100, Phase I 1110 (Restarted - Pr ovider: Hedy Stoll RN)1947 (Due: Stopped) PRN Medication Order 09/07/2023 09/08/2023 09/09/2023 albuterol 2.5 mg /3 mL (0.083 %) nebulizer solution 2.5 mg 2.5 mg, nebulization, Every 4 hours PRN (respiratory practitioner), wheezing, shortness of breath, Starting on Thu09/09/23 at 0405, This therapy was substituted for Albuterol HFA per protocol. 0801 ([facility] Hold - Pro vider: Automatic Transfer Provider - Reason: Patient not available)08 ([facility] Unhold - Provider: Automatic Transfer Provider)08 ([facility] Hold - Provider: Automatic Transfer Provider - Reason: Patient not available)08 ([facility] Unhold - Provider: Automatic Transfer Provider)08 ([facility] Hold - Provider: Automatic Transfer Provider - Reason: Patient not available)1052 ([facility] Unhold - Provider: Hedy Stoll, KIET) BUPivacaine-EPINEPHrine (MARCAINE with EPI) 0.5 %-1:200,000 preservative free injection (CANCELED) As needed, Starting on Thu09/09/23 at 0938, Intra-Op 0938 (Given - Provid er: Jared Liang MD) dicyclomine (BENTYL) capsule 20 mg 20 mg, oral, 4 times daily PRN, abdominal pain/cramping, Starting on Thu09/09/23 at 0401 0801 ([facility] Hold - Pro vider: Automatic Transfer Provider - Reason: Patient not available)08 ([facility] Unhold - Provider: Automatic Transfer Provider)08 ([facility] Hold - Provider: Automatic Transfer Provider - Reason: Patient not available)08 ([facility] Unhold - Provider: Automatic Transfer Provider)0802 ([facility] Hold - Provider: Automatic Transfer Provider - Reason: Patient not available)1052 ([facility] Unhold - Provider: Hedy Stoll, KIET) famotidine (PEPCID) tablet 20 mg 20 mg, oral, Daily PRN, indigestion, heartburn, Starting on Thu09/09/23 at 0401 0801 ([facility] Hold - Pro vider: Automatic Transfer Provider - Reason: Patient not available)08 ([facility] Unhold - Provider: Automatic Transfer Provider)0801 ([facility] Hold - Provider: Automatic Transfer Provider - Reason: Patient not available)0801 ([facility] Unhold - Provider: Automatic Transfer Provider)0802 ([facility] Hold - Provider: Automatic Transfer Provider - Reason: Patient not available)1052 ([facility] Unhold - Provider: Hedy Stoll, RN) ioversoL (OPTIRAY 350) syringe 75 mL (COMPLETED) 75 mL, intravenous, Once in imaging, contrast, Starting on Thu09/09/23 at 0042, For 1 dose 0043 (Contrast Given - Provider: Tessa Ceron, RT) ondansetron (ZOFRAN) injection 4 mg(Linked Group 1) 4 mg, intravenous, Administer over 2 Minutes, Every 6 hours PRN, nausea, vomiting, if not tolerating PO, Starting on Thu09/09/23 at 0335, Indications: Nausea and Vomiting 0352 (Given - Provid er: Teri Acosta RN)0801 ([facility] Hold - Provider: Automatic Transfer Provider - Reason: Patient not available)0801 ([facility] Unhold - Provider: Automatic Transfer Provider)0801 ([facility] Hold - Provider: Automatic Transfer Provider - Reason: Patient not available)0801 ([facility] Unhold - Provider: Automatic Transfer Provider)0802 ([facility] Hold - Provider: Automatic Transfer Provider - Reason: Patient not available)0921 (Given - Provider: Rodri Key CRNA)1052 ([facility] Unhold - Provider: Hedy Stoll, KIET) ondansetron ODT (ZOFRAN-ODT) disintegrating tablet 4 mg(Linked Group 1) 4 mg, oral, Every 6 hours PRN, nausea, vomiting, Starting on Thu09/09/23 at 0335, Indications: Nausea and Vomiting 0352 (See Alternativ e - Provider: Teri Acosta RN)0801 ([facility] Hold - Provider: Automatic Transfer Provider - Reason: Patient not available)0801 ([facility] Unhold - Provider: Automatic Transfer Provider)0801 ([facility] Hold - Provider: Automatic Transfer Provider - Reason: Patient not available)0801 ([facility] Unhold - Provider: Automatic Transfer Provider)0802 ([facility] Hold - Provider: Automatic Transfer Provider - Reason: Patient not available)0921 (See Alternative - Provider: Rodri Key CRNA)1052 ([facility] Unhold - Provider: Hedy Stoll, RN) polyethylene glycol (MIRALAX) packet 17 g 17 g, oral, Daily PRN, constipation, Starting on Thu09/09/23 at 0335, Indications: constipation 0801 ([facility] Hold - Pro vider: Automatic Transfer Provider - Reason: Patient not available)0801 ([facility] Unhold - Provider: Automatic Transfer Provider)0801 ([facility] Hold - Provider: Automatic Transfer Provider - Reason: Patient not available)08 ([facility] Unhold - Provider: Automatic Transfer Provider)0802 ([facility] Hold - Provider: Automatic Transfer Provider - Reason: Patient not available)1052 ([facility] Unhold - Provider: Hedy Stoll, RN) sodium chloride 0.9% irrigation (CANCELED) As needed, Starting on Thu09/09/23 at 0942, Intra-Op 0942 (Given - Provid er: Jared Liang MD - Comment: On sterile field for irrigation) Linked Groups Order Group 1: ondansetron ODT (ZOFRAN-ODT) disintegrating tablet 4 mgJump to med 4 mg, oral, Every 6 hours PRN, nausea, vomiting, Starting on Thu09/09/23 at 0335, Indications: Nausea and Vomiting Or ondansetron (ZOFRAN) injection 4 mgJump to med 4 mg, intravenous, Administer over 2 Minutes, Every 6 hours PRN, nausea, vomiting, if not tolerating PO, Starting on Thu09/09/23 at 0335, Indications: Nausea and Vomiting documented in this encounter Orders Medications Ordered That Rg ht Not Have Been Administered Count Last Ordered Date First Ordered Date albuterol 2.5 mg /3 mL (0.08 3 %) nebulizer solution 2.5 mg 1 09/09/2023 albuterol HFA (PROVENTIL HFA ,VENTOLIN HFA,PROAIR HFA) 90 mcg/actuation inhaler 2 puff 09/09/2023 BUPivacaine-EPINEPHrine (MAR SHIRIN with EPI) 0.5 %-1:200,000 preservative free injection 09/09/2023 Carrier Fluids for Secondary Infusion - 0.9% Sodium Chloride 09/09/2023 cefOXitin (MEFOXITIN) 2,000 mg/20 mL in sterile water (premix) 2,000 mg 09/09/2023 dicyclomine (BENTYL) capsule 20 mg 1 2023 famotidine (PEPCID) tablet 20 mg 1 09/09/19 24 fentaNYL (SUBLIMAZE) preserv ative free injection 25 mcg 1 09/09/2023 lubiprostone (AMITIZA) capsule 24 mcg 1 05/2024 naloxone (NARCAN) 0.4 mg/mL injection 0.04-0.4 mg 1 09/09/2023 nortriptyline (PAMELOR) capsule 25 mg 1 05/2024 ondansetron (ZOFRAN) injection 4 mg 1 09/09 ondansetron ODT (ZOFRAN-ODT) disintegrating tablet 4 mg 1 09/09/[address] (PROTONIX) e xtended release tablet 40 mg 1 09/09/2023 polyethylene glycol (MIRALAX) packet 17 g 1 09/09/2023 sodium chloride 0.9% flush 0.5-20 mL 1 08/31 sodium chloride 0.9% irrigation 1 Diet Count Last Ordered Date First Orde red Date ADULT DISCHARGE DIET 1 09/09/2023 Nursing Count Last Ordered Date First Orde red Date DISCHARGE ACTIVITY 1 09/09/2023 DISCHARGE CALL PROVIDER 5 09/09/2023 FOLLOW UP WITH ESTABLISHED PROVIDER 2 09/09 Consult Count Last Ordered Date First Orde red Date IP CONSULT TO GENERAL SURGERY 1 09/09/2023 IP CONSULT TO NUTRITION SERVICES 1 09/09/19 24 IV Count Last Ordered Date First Orde red Date INSERT PERIPHERAL IV 1 09/08/2023 SALINE LOCK IV 1 09/08/2023 Admission Count Last Ordered Date First Orde red Date INITIATE OBSERVATION SERVICES 1 09/09/2023 Discharge Count Last Ordered Date First Orde red Date DISCHARGE PATIENT 1 09/09/2023 CORE MEASURES Count Last Ordered Date First Ord ered Date REASON FOR NO VTE PROPHYLAXIS AT ADMISSION 1 09/09/2023 documented in this encounter Care Teams Digital Assistant Relationship Specialty Start Date End Date Parmjit Ewing MD PCP - General 12/31/20 Mere Landa V., SMALL ENGINE TRAINER Nurse Practitioner 02/07/20 Tico Burton MD Surgeon General Surgery 08/09/21 Jared Liang MD Consulting Physician General Surgery 09/09/23 documented as of this encounter
--- OUTSIDE RECORDS SUMMARY | 2024-08-16 04:32 | XMS_ITS | Encounter Summary ---
Author Organization [facility] Healthcare Address [address] [place] [address] Care Team Providers Care Tax Accounting Assistant Name Role Phone Mere Landa NP Unavailable [phone] Parmjit Dai MD Primary Care Provider [phone] Tico Burton MD Unavailable [phone] Ivan Liang MD Unavailable Encounter Details Date Type Department Care Team (Late st Contact Info) Description 11/26/2023 Orders Only [facility] [address] [place] [id number] Rose Negron MD [address] [facility] [address] [place] [address] Social History Tobacco Use Types Packs/Day Years Used Date Smoking Tobacco: Former Cigarettes 1 984 - 1999 Vaping Smokeless Tobacco: Never Comments:off and on Alcohol Use Standard Drinks/Week Comments No 0 (1 standard drink = 0.6 oz pur e alcohol) on occasion [facility] Utilities Answer Date Recorded In [...] often do you attend chur ch or synagogue services? Never 09/09/2023 Do you belong to any clubs o r organizations such as uatsdin groups, unions, fraternal or athletic groups, or [...] place to sleep or slept in a assisted (including now)? No 09/09/2023 Personal Safety Answer Date Recorded Have you ever been in or are you currently in a harmful physical or emotional relationship or is someone making you feel afraid or unsafe? Denies 10/07/2023 Comments No Sex and Gender Information Value Date Recorded Sex Assigned at Not on file Legal Sex Female 10:06 AM ELECTRIC CUTTER OPERATOR Gender Identity Female 06/17/2024 7:02 AM CDT Sexual Orientation Not on file documented as of this encounter Ordered Prescriptions Prescription Sig Dispense Quantity Refills Last Filled Start Date End Date busPIRone (BUSPAR) 10 mg tabletIndications: Generalized Anxiety Disorder Take 1 tablet (10 mg total) by mouth 3 (three) times a day 90 tablet 1 11/26/2023 02/19/2024 documented in this encounter Plan of Treatment Upcoming Encounters Date Type Department Care Team (Latest Contact Info) Description 09/07/2024 8:30 AM ELECTRIC CUTTER OPERATOR Hospital Encounter [facility] [address] [place] [phone] Forest Catherine MD [address] [address] 09/07/2024 8:30 AM ELECTRIC CUTTER OPERATOR - 09/07/2024 9:00 AM ELECTRIC CUTTER OPERATOR Surgery [facility] [address] [place] [phone] Forest Catherine MD [address] [address] EGD w/Endo Flip & YI placement Scheduled Procedures Name Priority Associated Diagnoses Date/Ti me ESOPHAGOGASTRODUODENOSCOPY Hiatal hernia Gastroesophageal reflux disease, unspecified whether esophagitis present 09/07/2024 8:30 AM ELECTRIC CUTTER OPERATOR documented as of this encounter Visit Diagnoses Not on filedocumented in this encounter Discontinued Medications Medication Sig Discontinue Reason Start Date End Da te busPIRone (BUSPAR) 5 mg tabletIndications:Genera lized Anxiety Disorder Take 1 tablet (5 mg total) by mouth 3 (three) times a day 11/13/2023 11/26/2023 documented as of this encounter Care Teams Tax Accounting Assistant Relationship Specialty Start Date End Date Parmjit Dai MD PCP - General 12/31/20 Mere Landa NP Nurse Practitioner 02/07/20 Tico Burton MD Surgeon General Surgery 08/09/21 Ivan Liang MD Consulting Physician General Surgery 09/09/23 documented as of this encounter
--- OUTSIDE RECORDS SUMMARY | 2024-08-16 04:32 | XMS_ITS | Encounter Summary ---
Author Organization [facility] Address [address] [place] [address] Phone Care Team Providers Care [employer] Name Role Phone Mere Landa NP Unavailable [phone] Parmjit Dai MD Primary Care Provider [phone] Tico Burton MD Unavailable [phone] Ivan Liang MD Unavailable Reason for Referral * Gastroenterology (Routine) - Closed Specialty Diagnoses / Procedures Referred By Contgonzalo t Referred To Contact Diagnoses Irritable bowel syndrome with both constipation and diarrhea Procedures High Resolution Anorectal Motility (Rectal Sensation/Tone) with Balloon Expulsion - Rose Negron MD [address] [place] [address] Phone: tel: fax: [address] [phone] Referral ID Status Reason Start Date Expiration Date Visits Re quested Visits Authorized [id number] Closed 11/24/2023 12/23/2024 1 1 Encounter Details Date Type Department Care Team (Late st Contact Info) Description 11/24/2023 Orders Only [facility] Gastroenterology [address] [facility] 12th [place] [address] [place] [address] Rose Negron MD [address] [place] [address] Irritable bowel syndrome with both constipation and diarrhea (Primary Dx) Social History Tobacco Use Types Packs/Day Years Used Date Smoking Tobacco: Former Cigarettes 1999 Vaping Smokeless Tobacco: Never Comments:off and on Alcohol Use Standard Drinks/Week Comments No 0 (1 standard drink = 0.6 oz pur e alcohol) on occasion [facility] Utilities Answer Date Recorded In the past 12 months has e [employer], gas, oil, or water company threatened to [...] often do you attend chur ch or taoist services? Never 09/09/2023 Do you belong to any clubs o r organizations such as mandaen groups, unions, fraternal or athletic groups, or [...] on file Legal Sex Female 10:06 AM FRONT EDGER Gender Identity Female 06/17/2024 7:02 AM CDT Sexual Orientation Not on file documented as of this encounter Plan of Treatment Upcoming Encounters Date Type Department Care Team (Latest Contact Info) Description 09/07/2024 8:30 AM FRONT EDGER Hospital Encounter [facility] [address] [place] [id number] Forest Catherine MD [address] [place] [address] 09/07/2024 8:30 AM FRONT EDGER - 09/07/2024 9:00 AM FRONT EDGER Surgery [facility] [address] [place] [id number] Forest Catherine MD [address] [place] [address] EGD w/Endo Flip & YI placement Scheduled Procedures Name Priority Associated Diagnoses Date/Ti me ESOPHAGOGASTRODUODENOSCOPY Hiatal hernia Gastroesophageal reflux disease, unspecified whether esophagitis present 09/07/2024 8:30 AM FRONT EDGER documented as of this encounter Results * High Resolution Anorectal Motility (Rectal Sensation/Tone) with Balloon Expulsion - (02/08/2024 2:47 PM CDT) Anatomical Region Laterality Modality Other Rose Negron MD GI LAB PROCEDURE ORDERABLES Fi nal Result documented in this encounter Visit Diagnoses Diagnosis Irritable bowel syndrome with both constipation and diarrhea- Primary Hiatal hernia Diaphragmatic hernia without mention of obstruction or gangrene Gastroesophageal reflux disease, unspecified whether esophagitis present documented in this encounter Care Teams [employer] Relationship Specialty Start Date End Date Parmjit Dai MD PCP - General 12/31/20 Mere Landa NP Nurse Practitioner 02/07/20 Tico Burton MD Surgeon General Surgery 08/09/21 Ivan Liang MD Consulting Physician General Surgery 09/09/23 documented as of this encounter
--- OUTSIDE RECORDS SUMMARY | 2024-08-16 04:32 | XMS_ITS | Encounter Summary ---
Author Organization [facility] Healthcare Address [address] [place] [address] Care Team Providers Care School Speech Language Pathologist Name Role Phone Mere Landa NP Unavailable [phone] Parmjit Ewing MD Primary Care Provider [phone] Tico Burton MD Unavailable [phone] Jared Liang MD Unavailable Reason for Visit * Reason Comments Abdominal Pain * Auth/Cert (Routine) Specialty Diagnoses / Procedures Referred By Loreta t Referred To Contact Diagnoses Chronic abdominal pain Procedures na Referral ID Status Reason Start Date Expiration Date Visits Re quested Visits Authorized [id number] 1 1 Encounter Details Date Type Department Care Team (Late st Contact Info) Description 09/09/2023 9:20 AM SENIOR PHP WEB DEVELOPER - 09/09/2023 10:50 AM SENIOR PHP WEB DEVELOPER Surgery [facility] Operating Room [address] [place] [address] Jared Liang MD [address] [place] [id number] LAPAROSCOPIC APPENDECTOMY Surgery Details Date/Time Status Location OR Service Patient Class Case Class Case Type Trauma Case? 09/09/2023 9:20 AM Posted [facility] OPERATING ROOM OR 01 General Surgery Inpatient Elective Panel 1 Procedure LRB Anes Op Region Wound Class Comments LAPAROSCOPIC APPENDECTOMY N/A General Abdomen Class II - Clean Contaminated dx right lower quadrant pain Surgeon Surgeon Role Service Panel Jared Liang MD Primary General Surgery 1 documented in this encounter Social History Tobacco Use Types Packs/Day Years Used Date Smoking Tobacco: Former Cigarettes 1999 Vaping Smokeless Tobacco: Never Comments:off and on Alcohol Use Standard Drinks/Week Comments No 0 (1 standard drink = 0.6 oz pur e alcohol) on occasion [facility] Utilities Answer Date Recorded In [...] often do you attend chur ch or gnosticist services? Never 09/09/2023 Do you belong to any clubs o r organizations such as yazidi groups, unions, fraternal or athletic groups, or [...] file Legal Sex Female 10:06 AM SENIOR PHP WEB DEVELOPER Gender Identity Female 06/17/2024 7:02 AM CDT Sexual Orientation Not on file documented as of this encounter Last Filed Vital Signs Vital Sign Reading Time Taken Comments Blood Pressure 109/63 09/09/2023 10:45 AM SENIOR PHP WEB DEVELOPER Pulse 63 09/09/2023 10:45 AM SENIOR PHP WEB DEVELOPER Temperature 36.5 ??C (97.7 ??F) 09/09/2023 10:[address] Respiratory Rate 15 09/09/2023 10:45 AM SENIOR PHP WEB DEVELOPER Oxygen Saturation 96% 09/09/2023 10:45 AM SENIOR PHP WEB DEVELOPER Inhaled Oxygen Concentration - - Weight 57.9 kg (127 lb 9.6 oz) 09/09/2023 3:05 A M SENIOR PHP WEB DEVELOPER Height 163.8 cm (5' 4.5 ) 09/09/2023 3:05 AM SENIOR PHP WEB DEVELOPER Body Mass Index 21.56 09/09/2023 3:05 AM SENIOR PHP WEB DEVELOPER documented in this encounter Discharge Summaries * Della Wright MD - 09/09/2023 3:47 PM CST Inpatient Discharge Summary Patient Name - Sarahy Mays Patient Age - 53 yrs Patient - [id number] [facility] - [id number] Document Creation Date: 09/09/2023 Admitting Provider, : Jared Liang MD Discharge Provider, : No att. providers found Primary Care Physician at Discharge: Parmjit Ewing MD [phone] Admission Date: 09/08/2023 Discharge Date/time: 09/09/2023 Admission Location: [facility] LOS - LOS: 0 days [...] felt well to go home. Placed on [place] 5-325mg for pain control. Patient is to [...] constipation and diarrhea Colitis S/p appendectomy -Continue [place] 5-325mg q6hr PRN for 7 days -Continue [...] 2:00 PM [facility]IG [facility] Nuc Med [facility] Main 09/15/2023 3:00 PM [facility] Nuc Med [facility] Main 09/15/2023 4:00 PM [facility] Nuc Med [facility] Main 09/24/2023 8:00 AM Richard Bowman NP [facility] 230 Specialty 10/19/2023 9:00 AM Richard Bowman NP [facility] 230 Specialty Contact Information for Follow-ups Jared Liang MD Specialty: General Surgery Relationship: Consulting Physician [address] [place] [address] [address] [place] [address] Next Steps: Schedule an appointment as soon as possible for a visit in 1 week(s) Parmjit Ewing MD Specialty: Family Medicine [address] [place] [address] DR TIANA Lyle [facility] [address] [place] [address] Next Steps: Follow up Comments: Follow up with established provider: 1 week Questions: To provider: PARMJIT EWING Matthew Christopher, MD Specialty: General Surgery Relationship: Consulting Physician Farida [facility] [address] S[address] [place] [address] Next Steps: Follow up Instructions: Follow up with general surgery Questions: To provider: JARED LIANG Instructions for follow-up (appointment date and time): Follow up with general surgery Please schedule an appointment with the following provider(s): Jared Liang MD [address] [facility] [address] [place] [phone] Schedule an appointment as soon as possible for a visit in 1 week(s) Parmjit Ewing MD [address] [facility] [address] TIANA Lyle [facility] [address] [facility] [address] Jared Liang MD [address] [facility] [address] [facility] [address] Follow up with general surgery ANCILLARY INFORMATION [...] Parmjit Herrera M.D. BB: BÁRBARA Report ID: [id number] Reading Location: [place] [address] Recent Labs: Recent Labs Lab Units 09/09/23 0758 09/08/23 [...] -- 0.3 Recent Labs Lab Units 09/09/23 0758 09/08/23 1859 SODIUM mmol/L 144 141 POTASSIUM PLASMA mmol/L 3.7 3.4 CHLORIDE mmol/L 109 106 CO2 mmol/L 25 25 BUN SERUM mg/dL 10 7 CREATININE mg/dL 0.66 0.68 [id number] mL/min/1.73 m2 104 103 GLUCOSE mg/dL 105 [...] Nation Jr., MD at 09/10/2023 7:20 AM SENIOR PHP WEB DEVELOPER OR PHP WEB DEVELOPER OR PHP WEB DEVELOPER Associated attestation - Ryan Nation Jr., MD - 09/10/2023 7:20 AM SENIOR PHP WEB DEVELOPER I personally saw and examined the patient [...] Bernice Velazquez RN - 09/09/2023 2:03 PM SENIOR PHP WEB DEVELOPER Discharge Instructions: 1. No driving while on [...] is ALWAYS EXCELLENT! Please call [facility] at [phone] if you have any questions regarding your care. Wishing you continued improvement during your recovery. Your Surgical Care Unit Team Bernice Carranza Dana, Denise, Victoria, Brittny, Alexandra Hale Stacy, Debbie, Sheila, Lamika, Judy, Nicole Lopez, Chloe Barry Simona, Bonnie, Angie, Melanie, Angelique, Jennifer Gray. Nicole Lopez Jocelyn, Rochelle, Simona, Bonnie, Angie, Melanie, Angelique, Jennifer Gray. OR PHP WEB DEVELOPER OR PHP WEB DEVELOPER * Discharge Instr - Diet* Monique Luna, RD - 09/09/2023 2:48 PM SENIOR PHP WEB DEVELOPER Recommend to eat a GI soft diet [...] follow up with primary care physician. Call [facility] Dietitian's office at [phone] for questions about your diet. If interested in nutrition counseling, ask your doctor for referral and call [phone] to make an appointment. Oral nutritional supplement 2 - 3 x daily until intakes consistently adequate. OR PHP WEB DEVELOPER * Attachments The following attachments cannot be sent through Care Everywhere. * Hydrocodone/Acetaminophen (By mouth) (Comoran) documented in this encounter Medications at Time [...] up to 7 days 28 tablet 09/09/2023 4 baclofen (LIORESAL) 10 mg tablet Take 1/2-1 [...] planned surgery on 09/09. Patient accepted by [facility], Ryan Salinas [...] Parmjit Herrera M.D. BB: BÁRBARA Report ID: [id number] Reading Location: [id number] CTA Abdomen Pelvis Result Date: 08/19/2023 Narrative: [...] with dynamic intravenous contrast injection. Precontrast, arterial, andportal venous phase images of the abdomen and pelvis were acquired. Images reviewed with lung, softtissue and bone windows. Reconstructed coronal and sagittal MPR images reviewed. All images stored on PACS. 3D MIP images rendered on scanning unit and reviewed at time of interpretation. Automated exposure control was used as a dose optimization technique for this examination. CONTRAST TYPE/DOSE: 75mL of IOVERSOL 350 MG IODINE/ML INTRAVENOUS SYRINGE injected via intravenous COMPARISON: CT abdomen pelvis 09/04/2022. REFERENCE: Unless otherwise specified, no follow-up imaging is recommended for incidental [...] dissection, or aneurysm. LOWER CHEST: No significant pulmo nary abnormalities. No effusion. LIVER: Normal size. No [...] Appendix is very slightly thick walled with asmall calculus proximally. No definite acute findings evident of the appendix. Please correlate with clinical factors. There is no bowel wall thickening or evidence for ischemic bowel. Large amount of formed stool throughout the colon. PERITONEUM: No ascites or free air. RETROPERITONEUM: No mass oradenopathy. REPRODUCTIVE: No significant abnormality. MUSCULOSKELETAL: Slight dextroscoliosis. OTHER: No other abnormality. 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 This is of uncertain clinical significance. Slight thickening of the wall of theappendix with small appendicolith proximally. No definite acute findings of the appendix. Please correlate with clinical factors. No aortic aneurysm or dissection. No acute finding. THIS IS AN ELECTRONICALLY VERIFIED FINAL REPORT 08/19/2023 11:51 AM - Electronically signed by Kolby Kay M.D. LC: NICKY Report ID: [id number] Reading Location: [place] [address] Current Facility-Administered Medications Medication Dose Route Frequency [...] MD 4 mg at 09/09/23 0352 pantoprazole (PROTONIX) extended release tablet 40 mg 40 [...] Less than 2 midnights Letha Rose MD [facility] Family Medicine Residency- PGY3 [facility] Date of Service: 09/09/2023 4:12 AM Cosigned by Ryan Nation Jr., MD at 09/09/2023 4:22 PM SENIOR PHP WEB DEVELOPER OR PHP WEB DEVELOPER OR PHP WEB DEVELOPER Associated attestation - Ryan Nation Jr., MD - 09/09/2023 4:22 PM SENIOR PHP WEB DEVELOPER I personally saw and examined the patient [...] documented in this encounter Consult Notes * Monique Luna, RD - 09/09/2023 2:46 PM CSTAssociated Order(s): [...] BUN SERUM mg/dL 10 CREATININE mg/dL 0.66 [id number] mL/min/1.73 m2 104 CALCIUM mg/dL 9.0 ALBUMIN [...] them. Ensure clear at meals. Encourage PO rylee pedroza. DERICK MALNUTRITION ASSESSMENT: Date of completion: 09/09/23 ASPEN/AND [...] Triceps/Biceps: Between folds, fingers touch Muscle Loss Nondenominational Region - Temporalis Muscle: Hollowing, scooping, depression [...] Wt loss 10% /6m INTERVENTION(S): Summary: Encouragement, [place] diet preferences within the limits of nutrition [...] follow up with primary care physician. Call [facility] Dietitian's office at [phone] for questions about your diet. If interested in nutrition counseling, ask your doctor for referral and call [phone] to make an appointment. Oral nutritional supplement 2 - 3 x daily until intakes consistently adequate. DESTINEE Pino Inpatient Office: [phone] Weekend Coverage: [phone] OR PHP WEB DEVELOPER * Jared Liang MD - 09/09/2023 9:12 [...] tablet 40 mg, 40 mg, oral, Daily [OCT Hold] polyethylene glycol (MIRALAX) packet 17 g, [...] obtained Jared Liang MD 9:12 AM 09/09/2023 OR PHP WEB DEVELOPER documented in this encounter ED Notes * [...] pain, generalized 08/08/2021 ??? Atrial fibrillation (CMS/HCC) (HCC) 05/15/2020 ??? Essential tremor 10/12/2018 ??? Jerky [...] History: Procedure Laterality Date ??? ABDOMINAL SURGERY 2013 hiatel hernia repair ??? ARTHROSCOPIC SURGERY Left 1985,1995,2002 knee ??? SECTION 1992 ??? CHOLECYSTECTOMY ??? [...] Types: Marijuana Comment: occasionally last used 09-02-23 ??? Sexual activity: Defer control/protection: Post-menopausal Social [...] Course as of 09/09/23 0247 Time: 09/08 2347 Comment: Denies any change in improvement, is wanting be admitted at this time By: Tianna Churchill PA Time: 09/08 6532 Value: Comprehensive metabolic panel: Sodium 141 Potassium, [...] Matilde Knowles MD at 09/09/2023 3:22 AM SENIOR PHP WEB DEVELOPER OR PHP WEB DEVELOPER OR PHP WEB DEVELOPER * Geoff Renee RN - 09/08/2023 6:52 PM CST Patient complains of RLQ abdominal pain and nausea that started this morning. Patient states she isscheduled to have an appendectomy in the morning. OR PHP WEB DEVELOPER documented in this encounter Miscellaneous Notes * Initial Assessments - Queenie Byrnes RN - 09/09/2023 3:18 PM CST CM Low Risk Discharge Planning Assessment Note Primary Care Provider: Parmjit Ewing MD Preferred Pharmacy: No Pharmacies Listed Who does the patient or legal guardian want to receive education instruction and discharge plans for after care assistance?: Decline Living Arrangements: Spouse/significant other, Family members (09/09/23 0303) Additional Information and Discharge Plan: DC plan discussed with patient and at bedside. Goal is to return home-lives with her and he will be her ride home. Independent and doesn't use any equipment for mobility. Had a lap appy this morning. Barrier to dc is recovery after surgery.No home needs noted at this time. Queenie Byrnes RN Phone Number: OR PHP WEB DEVELOPER * Op Note - Jared Liang MD - 09/09/2023 9:36 AM CST NAME: Sarahy Mays DATE OF : 1970 SURGEON: Jared Liang MD EMERGENCY MANAGEMENT SPECIALIST:Marketing Services Specialist: Debbie Rich RN Scrub: Halina Vieira RN DECISION SUPPORT ANALYST: Funmi Gilmore NP FLOAT: Annie Regalado RNFA [...] 12 mm trocar was closed with a [id number] 0 Vicryl stitch. The skin of all [...] Appendix Jared Liang MD 09/09/2023 10:20 AM OR PHP WEB DEVELOPER * Plan of Care - Teri Acosta [...] for surgery later this morning. IV SL. OR PHP WEB DEVELOPER * ED Re-evaluation Note - Matilde Knowles MD - 09/09/2023 12:16 AM SENIOR PHP WEB DEVELOPER ED Re-evaluation Portions of the record may have been created with voice recognition software. 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 By: Matilde Knowles MD Time: 09/09 7879 Comment: Patient produced a stool sample. Gross [...] been completed with a voice recognition program. Is Support Analyst errors occur. Please contact me for any clarification.) Matilde Knowles MD 09/09/23 0302 OR PHP WEB DEVELOPER documented in this encounter Plan of Treatment Upcoming Encounters Date Type Department Care Team (Latest Contact Info) Description 09/07/2024 8:30 AM SENIOR PHP WEB DEVELOPER Hospital Encounter [facility] [address] [place] [phone] Forest Catherine MD [address] [address] 09/07/2024 8:30 AM SENIOR PHP WEB DEVELOPER - 09/07/2024 9:00 AM SENIOR PHP WEB DEVELOPER Surgery [facility] Center [address] [place] [phone] Forest Catherine MD [address] [address] EGD w/Endo Flip & YI placement Scheduled Procedures Name Priority Associated Diagnoses Date/Ti me ESOPHAGOGASTRODUODENOSCOPY Hiatal hernia Gastroesophageal reflux disease, unspecified whether esophagitis present 09/07/2024 8:30 AM SENIOR PHP WEB DEVELOPER documented as of this encounter Procedures Procedure Name Priority Date/Time Associated Diagnosis Comments SURGICAL PATHOLOGY Routine 09/09/2023 11 :04 AM SENIOR PHP WEB DEVELOPER Acute appendicitis, unspecified acute appendicitis type LAPAROSCOPIC APPENDECTOMY 09/09/2023 9:01 AM SENIOR PHP WEB DEVELOPER APPENDIX DISEASE [K38.9] ABO/RH STAT 09/09/2023 8:11 AM SENIOR PHP WEB DEVELOPER ANTIBODY SCREEN STAT 09/09/2023 8:11 AM SENIOR PHP WEB DEVELOPER TYPE AND SCREEN STAT 09/09/2023 8:11 AM SENIOR PHP WEB DEVELOPER EGFR Routine 09/09/2023 7:58 AM SENIOR PHP WEB DEVELOPER CBC WITHOUT DIFFERENTIAL Routine 09/09/2023 7:58 AM SENIOR PHP WEB DEVELOPER COMPREHENSIVE METABOLIC PANEL Routine 09/09/2023 7:58 AM SENIOR PHP WEB DEVELOPER URINALYSIS AND REFLEX TO MICROSCOPIC AND CULTURE STAT 09/09/2023 2:28 AM SENIOR PHP WEB DEVELOPER CT ABDOMEN PELVIS W CONTRAST ED 09/09/2023 12:52 AM SENIOR PHP WEB DEVELOPER EGFR STAT 09/08/2023 6:59 PM SENIOR PHP WEB DEVELOPER DIFFERENTIAL AUTO STAT 09/08/2023 6:5 9 PM SENIOR PHP WEB DEVELOPER CBC WITH AUTO DIFFERENTIAL STAT 09/08/2023 6:59 PM SENIOR PHP WEB DEVELOPER LIPASE STAT 09/08/2023 6:59 PM SENIOR PHP WEB DEVELOPER COMPREHENSIVE METABOLIC PANEL STAT 09/08/2023 6:59 PM SENIOR PHP WEB DEVELOPER documented in this encounter Results * Surgical pathology (09/09/2023 11:04 AM SENIOR PHP WEB DEVELOPER) Tissue (Appendix) 09/09/2023 9:44 AM SENIOR PHP WEB DEVELOPER Comment:Dx right lower quadr ant pain Narrative PATHOLOGY [facility] ([facility]) - 09/11/2023 10:29 AM SENIOR PHP WEB DEVELOPER EPIC results best viewed via link to PDF [facility] Department of Pathology [address] [place], [place] [id number] Note to Patients: This report may contain [...] Final Report Patient Name: ??SARAHY MAYS Address: ??[address] [place] [address], ??[place], [place] ?? Gender: ??F : ??1970 (Age: 53) Service: ??Surgery Location: ??[facility] Hospital #: ??[id number] Patient Type: ??[facility] EP OP in bed Accession # ?[id number] Taken: ??09/09/2023 Received: ??09/09/2023 Accessioned: ??09/09/2023 Reported: [...] cassette. ??Remaining tissue is submitted in A2 Romi Zuñiga R.N., P.A./Victoria Saravia M.D. REPORT IMAGES AND SCANNED DOCUMENTS, IF INCLUDED, ONLY VIEWABLE IN PDF VERSION OF REPORT The performance characteristics of some immunohistochemical stains, fluorescence in-situ hybridization tests and immunophenotyping by flow cytometry cited in this report (if any) were determined by the Surgical Pathology Department at [facility] as part of an ongoing quality assurance analyst program and in compliance with federally [...] characteristics determined by the Surgical Pathology Department [facility]. ??It has not been cleared or approved by the U. S. Food and Drug Administration. Note for decalcified specimens: This assay has not been validated on decalcified tissues. Results should be interpreted with caution given the possibility of false negativity on decalcified specimens Jared Liang MD LAB PATHOLOGY OR DERABLES Final Result PATHOLOGY [facility] ([facility]) [address] [place] [address] * Antibody screen (09/09/2023 8:11 AM SENIOR PHP WEB DEVELOPER) Hola, indirect, Gel Interpretation Negative ABSC [facility] ([facility]) Blood 09/09/2023 8:11 AM SENIOR PHP WEB DEVELOPER 09/09/2023 8:29 AM SENIOR PHP WEB DEVELOPER Narrative [facility] ([place]) - 09/09/2023 9:10 AM SENIOR PHP WEB DEVELOPER Has the patient had Daratumumab or Isatuximab in the past 6 months?->Unknown Jared Liang MD LAB BLOOD BANK T EST ORDERABLES Final Result [facility] ([facility]) 1 [facility] [place] [address] * ABO/Rh (09/09/2023 8:11 AM SENIOR PHP WEB DEVELOPER) ABO/Rh B Positive [facility] ([place]) Blood 09/09/2023 8:11 AM SENIOR PHP WEB DEVELOPER 09/09/2023 8:29 AM SENIOR PHP WEB DEVELOPER Narrative [facility] ([facility]) - 09/09/2023 9:10 AM SENIOR PHP WEB DEVELOPER Has the patient had Daratumumab or Isatuximab in the past 6 months?->Unknown Jared Liang MD LAB BLOOD BANK T EST ORDERABLES Final Result [facility] ([facility]) 1 [facility] [place] [address] * eGFR (09/09/2023 7:58 AM SENIOR PHP WEB DEVELOPER) eGFR 104 mL/min/1. 73 m2 [facility] ([place]) Comment: Interpretive Data Reference Interval Normal ?>/= [...] last reviewed 2021. Blood 09/09/2023 7:58 AM SENIOR PHP WEB DEVELOPER 09/09/2023 8:04 AM SENIOR PHP WEB DEVELOPER us Ryan Nation Jr., MD LAB BLOOD ORDERABLE S Final Result [facility]) 1 [facility] Department [place] [address] * Comprehensive metabolic panel (09/09/2023 7:58 AM SENIOR PHP WEB DEVELOPER) Sodium 144 135 - 145 mmol/L [facility] ([facility]) Potassium, pl 3.7 3.3 - 4.9 mmol/L [facility] ([place]) Chloride 109 97 - 110 mmol/L [facility] ([place]) CO2 25 22 - 32 mmol/L [facility] ([place]) Anion gap 10 2 - 15 mmol/L [facility] ([place]) BUN 10 6 - 25 [...] [facility] ([place]) Blood 09/09/2023 7:58 AM SENIOR PHP WEB DEVELOPER 09/09/2023 8:04 AM SENIOR PHP WEB DEVELOPER us Ryan Nation Jr., MD LAB BLOOD ORDERABLE S Final Result [facility] ([place]) 1 [facility] Department [place] [address] * (ABNORMAL) CBC without differential (09/09/2023 7:58 AM SENIOR PHP WEB DEVELOPER) WBC 9.0 3.8 - 9.9 K/cumm [facility] [...] [facility] ([place]) Blood 09/09/2023 7:58 AM SENIOR PHP WEB DEVELOPER 09/09/2023 8:04 AM SENIOR PHP WEB DEVELOPER us Ryan Nation Jr., MD LAB BLOOD ORDERABLE S Final Result Performing Organization Address [facility] Co de Phone Number [facility] ([place]) 1 [facility] Department [place] [address] * (ABNORMAL) Urinalysis reflex to microscopic and culture Urine (09/09/2023 2:28 AM SENIOR PHP WEB DEVELOPER) Color, ur Yellow Yellow [facility] ([place]) [...] tendency for uric acid stone formation. Source: [facility] Current Interpretive Data was last revised on [...] [facility] ([place]) Urine 09/09/2023 2:28 AM SENIOR PHP WEB DEVELOPER 09/09/2023 5:46 AM SENIOR PHP WEB DEVELOPER us Matilde Knowles MD LAB MICROBIOLOGY - GENER AL ORDERABLES Final Result [facility] ([place]) 1 [facility] Department [place] [address] * CT Abdomen Pelvis W Contrast (09/09/2023 12:52 AM SENIOR PHP WEB DEVELOPER) Anatomical Region Laterality Modality Body N/A Computed Tomogra phy 09/09/2023 12:5 5 AM SENIOR PHP WEB DEVELOPER Narrative 09/09/2023 1:07 AM SENIOR PHP WEB DEVELOPER EXAM DESCRIPTION: ?? CT ABDOMEN PELVIS W [...] AM T: ??09/09/2023 1:07 AM Report ID: [id number] Reading Location: ??[id number] Procedure Note Parmjit Herrera MD PhD - [...] Parmjit Herrera M.D. BB: BÁRBARA Report ID: [id number] Reading Location: [id number] Matilde Knowles MD IMG CT PROCEDURES Final Result * eGFR (09/08/2023 6:59 PM SENIOR PHP WEB DEVELOPER) eGFR 103 mL/min/1. 73 m2 [facility] ([place]) Comment: [...] last reviewed 2021. Blood 09/08/2023 6:59 PM SENIOR PHP WEB DEVELOPER 09/08/2023 7:02 PM SENIOR PHP WEB DEVELOPER us Matilde Knowles MD LAB BLOOD ORDERABLES Fin al Result Performing Organization Address City/State/[facility] Co de Phone Number [facility] ([place]) 1 [facility] Department [place] [address] * Differential, auto (09/08/2023 6:59 PM SENIOR PHP WEB DEVELOPER) Neutrophil abs 5.8 1.5 - 6.5 K/cumm [facility] ([place]) Imm gran abs 0.0 0.0 - 0.1 [...] revised on 2017. Monocyte pct 6.9 % [facility] ([place]) Comment: Interpretive Data Percent cell [...] revised on 2017. Blood 09/08/2023 6:59 PM SENIOR PHP WEB DEVELOPER 09/08/2023 7:02 PM SENIOR PHP WEB DEVELOPER us Matilde Knowles MD LAB BLOOD ORDERABLES Fin al Result [facility] ([place]) 1 [facility] Department [place] [address] * Lipase (09/08/2023 6:59 PM SENIOR PHP WEB DEVELOPER) Lipase 35 10 - 99 Units/L [facility] ([place]) Blood (Blood, Venous) 09/08/2023 6:59 PM SENIOR PHP WEB DEVELOPER 09/08/2023 7:02 PM SENIOR PHP WEB DEVELOPER us Matilde Knowles MD LAB BLOOD ORDERABLES Fin al Result [facility] ([place]) 1 [facility] [place] [address] * Comprehensive metabolic panel (09/08/2023 6:59 PM SENIOR PHP WEB DEVELOPER) Sodium 141 135 - 145 mmol/L [facility] [...] [facility] ([place]) Blood 09/08/2023 6:59 PM SENIOR PHP WEB DEVELOPER 09/08/2023 7:02 PM SENIOR PHP WEB DEVELOPER us Matilde Knowles MD LAB BLOOD ORDERABLES Fin al Result [facility] ([place]) 1 [facility] [place] [address] * (ABNORMAL) CBC with auto differential (09/08/2023 6:59 PM SENIOR PHP WEB DEVELOPER) WBC 7.5 3.8 - 9.9 K/cumm [facility] [...] - 0.01 K/cumm [facility] ([place]) Blood (Blood, Venous) 09/08/2023 6:59 PM SENIOR PHP WEB DEVELOPER 09/08/2023 7:02 PM SENIOR [employer] WE[employer] DEVELOPER us Matilde Knowles MD LAB BLOOD ORDERABLES Fin al Result BREN GONZALEZ CAYDEN 1 [facility] [place] Department [place] [address] documented in this encounter Visit Diagnoses Not on filedocumented in this encounter Admitting Diagnoses Diagnosis Chronic [...] For 1 dose Given 09/09/2023 2:36 AM SENIOR PHP WEB DEVELOPER 1,000 mg acetaminophen (TYLENOL) tablet 1,000 mg 1,000 mg, oral, Once, On Thu09/09/23 at 0845, For 1 dose, Pre-Op, Indications: Pre-Emptive AnalgesiaIndications:P re-Emptive Analgesia Given 09/09/2023 8:11 AM SENIOR PHP WEB DEVELOPER 1,000 mg albuterol 2.5 mg /3 mL (0.083 %) nebulizer solution 2.5 mg 2.5 mg, nebulization, Every 4 hours PRN (leather stamper), wheezing, shortness of breath, Starting on Thu09/09/23 at 0405, This therapy was substituted for Albuterol HFA per protocol. BUPivacaine-EPINEPHrin e (MARCAINE with EPI) 0.5 %-1:200,000 preservative free injection As needed, Starting on Thu09/09/23 at 0938, Intra-Op Given 09/09/2023 9:38 AM SENIOR PHP WEB DEVELOPER 7 mL Surgical Site dicyclomine (BENTYL) capsule 20 mg 20 mg, oral, Once, On Thu09/09/23 at 0224, For 1 dose Given 09/09/2023 2:35 AM SENIOR PHP WEB DEVELOPER 20 mg droPERidol (INAPSINE) injection 1.25 mg 1.25 mg, intravenous, Administer over 5 Minutes, Once, On Thu09/09/23 at 0223, For 1 dose Given 09/09/2023 2:35 AM SENIOR PHP WEB DEVELOPER 1.25 mg flecainide (TAMBOCOR) tablet 100 mg 100 mg, oral, 2 times daily, First dose on Thu09/09/23 at 0900 Given 09/09/2023 8:05 AM SENIOR PHP WEB DEVELOPER 100 mg ioversoL (OPTIRAY 350) syringe 75 mL 75 mL, intravenous, Once in imaging, contrast, Starting on Thu09/09/23 at 0042, For 1 dose Contrast Given 09/09/2023 12:43 AM SENIOR PHP WEB DEVELOPER 75 mL ketorolac (TORADOL) 15 mg/mL injection 15 mg 15 mg, intravenous, Once, On Thu09/08/23 at 2220, For 1 dose, For Adult IV push, administer over 15 seconds, Indications: PainIndications:Pain Given 09/08/2023 11:20 PM SENIOR PHP WEB DEVELOPER 15 mg Lactated Ringer's (LR) infusion 75 mL/hr, intravenous, Continuous, Starting on Thu09/09/23 at 0445 New Bag 09/09/2023 4:39 AM SENIOR PHP WEB DEVELOPER 75 mL/hr 75 mL/hr Lactated Ringer's (LR) infusion 30 mL/hr, intravenous, Continuous, Starting on Thu09/09/23 at 0845, Pre-Op New Bag 09/09/2023 9:56 AM SENIOR PHP WEB DEVELOPER Restarted 09/09/2023 9:17 AM SENIOR PHP WEB DEVELOPER New Bag 09/09/2023 8:12 AM SENIOR PHP WEB DEVELOPER 30 mL/hr 30 mL/hr Lactated Ringer's (LR) infusion 125 mL/hr, intravenous, Continuous, Starting on Thu09/09/23 at 1100, Phase I Restarted 09/09/2023 11:10 AM SENIOR PHP WEB DEVELOPER 125 mL/hr 125 m L/hr metoprolol XL (TOPROL-XL) extended release tablet 25 mg 25 mg, oral, Daily, First dose on Thu09/09/23 at 0900, Tablets that are scored may be split, but do not crush, chew, dissolve, open or otherwise manipulate tablet/capsule. Given 09/09/2023 8:05 AM SENIOR PHP WEB DEVELOPER 25 mg ondansetron (ZOFRAN) injection 4 mg 4 mg, intravenous, Administer over 2 Minutes, Once, On Thu09/08/23 at 2216, For 1 dose Given 09/08/2023 11:20 PM SENIOR PHP WEB DEVELOPER 4 mg ondansetron (ZOFRAN) injection 4 mg 4 mg, intravenous, Administer over 2 Minutes, Every 6 hours PRN, nausea, vomiting, if not tolerating PO, Starting on Thu09/09/23 at 0335, Indications: Nausea and VomitingIndications:Nausea and Vomiting Given 09/09/2023 9:21 AM SENIOR PHP WEB DEVELOPER 4 mg Given 09/09/2023 3:52 AM SENIOR PHP WEB DEVELOPER 4 mg ondansetron ODT (ZOFRAN-ODT) disintegrating tablet 4 mg 4 mg, oral, Every 6 hours PRN, nausea, vomiting, Starting on Thu09/09/23 at 0335, Indications: Nausea and VomitingIndications:Nausea and Vomiting sodium chloride 0.9% bolus 1,000 mL 1,000 mL, intravenous, Once, On Thu09/08/23 at 2330, For 1 dose New Bag 09/08/2023 11:30 PM SENIOR PHP WEB DEVELOPER 1,000 mL sodium chloride 0.9% irrigation As needed, Starting on Thu09/09/23 at 0942, Intra-Op Given 09/09/2023 9:42 AM SENIOR PHP WEB DEVELOPER 500 mL Surgical Site documented in this encounter Active and Recently Administered Medications Times are shown in SENIOR PHP WEB DEVELOPER. Scheduled Medication Order 09/07/2023 09/08/2023 09/09/2023 acetaminophen (TYLENOL) tablet 1,000 mg (COMPLETED) 1,000 mg, oral, Once, On Thu09/09/23 at 0224, For 1 dose 023 (Given - Provid er: Leslie Nolan RN) acetaminophen (TYLENOL) tablet 1,000 mg (COMPLETED) 1,000 mg, oral, Once, On Thu09/09/23 at 0845, For 1 dose, Pre-Op, Indications: Pre-Emptive Analgesia 08 (Given - Provid er: Jessica Angel RN - Comment: took this morning) cefOXitin (MEFOXITIN) 2,000 mg/20 mL in sterile water (premix) 2,000 mg (COMPLETED) 2,000 mg, intravenous, at 400 mL/hr, Administer over 3 Minutes, Once, On Thu09/09/23 at 0845, For 1 dose, Pre-Op, Indications: Prophylaxis, Surgical 09 (Given - Provid er: Rodri Key CRNA) dicyclomine (BENTYL) capsule 20 mg (COMPLETED) 20 mg, oral, Once, On Thu09/09/23 at 0224, For 1 dose 0235 (Given - Provid er: Leslie Nolan, KIET) droPERidol (INAPSINE) injection 1.25 mg (COMPLETED) 1.25 mg, intravenous, Administer over 5 Minutes, Once, On Thu09/09/23 at 0223, For 1 dose 0235 (Given - Provid er: Leslie Nolan, KIET) flecainide (TAMBOCOR) tablet 100 mg 100 mg, oral, 2 times daily, First dose on Thu09/09/23 at 0900 0801 (MAR Hold - Provider: Automatic Transfer Provider - Reason: Patient not available)08 ([facility] Unhold - Provider: Automatic Transfer Provider)08 ([facility] Hold - Provider: Automatic Transfer Provider - Reason: Patient not available)08 ([facility] Unhold - Provider: Automatic Transfer Provider)08 ([facility] Hold - Provider: Automatic Transfer Provider - Reason: Patient not available)0805 (Given - Provider: Hedy Stoll, KIET)0900 (Dose Auto Held - Provider: Automatic Transfer Provider)1052 ([facility] Unhold - Provider: Hedy Stoll, KIET) ketorolac (TORADOL) 15 mg/mL injection 15 mg [...] dissolve, open or otherwise manipulate tablet/capsule. 0801 ([facility] Hold - Provider: Automatic Transfer Provider - Reason: Patient not available)0801 ([facility] Unhold - Provider: Automatic Transfer Provider)08 ([facility] Hold - Provider: Automatic Transfer Provider - Reason: Patient not available)08 ([facility] Unhold - Provider: Automatic Transfer Provider)0802 ([facility] Hold - Provider: Automatic Transfer Provider - Reason: Patient not available)0805 (Not Given - Provider: Hedy Stoll RN - Reason: Hold for Procedure)1052 ([facility] Unhold - Provider: Hedy Stoll RN) metoprolol XL (TOPROL-XL) extended release tablet 25 mg 25 mg, oral, Daily, First dose on Thu09/09/23 at 0900, Tablets that are scored may be split, but do not crush, chew, dissolve, open or otherwise manipulate tablet/capsule. 0801 ([facility] Hold - Provider: Automatic Transfer Provider - Reason: Patient not available)0801 ([facility] Unhold - Provider: Automatic Transfer Provider)08 ([facility] Hold - Provider: Automatic Transfer Provider - Reason: Patient not available)08 ([facility] Unhold - Provider: Automatic Transfer Provider)0802 (MAR Hold - Provider: Automatic Transfer Provider - Reason: Patient not available)0805 (Given - Provider: Hedy Stoll, KIET)0900 (Dose Auto Held - Provider: Automatic Transfer Provider)1052 ([facility] Unhold - Provider: Hedy Stoll, KIET) nortriptyline (PAMELOR) capsule 25 mg 25 mg, oral, Nightly, First dose on Thu09/09/23 at 2100 0801 ([facility] Hold - Provider: Automatic Transfer Provider - Reason: Patient not available)08 ([facility] Unhold - Provider: Automatic Transfer Provider)08 ([facility] Hold - Provider: Automatic Transfer Provider - Reason: Patient not available)08 ([facility] Unhold - Provider: Automatic Transfer Provider)08 ([facility] Hold - Provider: Automatic Transfer Provider - Reason: Patient not available)1052 ([facility] Unhold - Provider: Hedy Stoll, RN) ondansetron (ZOFRAN) injection 4 mg (COMPLETED) 4 mg, intravenous, Administer over 2 Minutes, Once, On Thu09/08/23 at 2216, For 1 dose 2320 (Given - Provider: Leslie Nolan, RN) pantoprazole DR (PROTONIX) extended release tablet 40 mg 40 mg, oral, Daily, First dose on Thu09/09/23 at 0900, Do not crush, chew, cut, dissolve, open or otherwise manipulate tablet/capsule., Indications: gerd 0801 ([facility] Hold - Provider: Automatic Transfer Provider - Reason: Patient not available)08 ([facility] Unhold - Provider: Automatic Transfer Provider)08 ([facility] Hold - Provider: Automatic Transfer Provider - Reason: Patient not available)08 ([facility] Unhold - Provider: Automatic Transfer Provider)0802 (MAR Hold - Provider: Automatic Transfer Provider - Reason: Patient not available)0900 (Dose Auto Held - Provider: Automatic Transfer Provider)1052 ([facility] Unhold - Provider: Hedy Stoll, KIET) sodium chloride 0.9% bolus 1,000 mL (COMPLETED) 1,000 mL, intravenous, Once, On Thu09/08/23 at 2330, For 1 dose 2330 (New Bag - Provider: Leslie Nolan, RN) 0030 (Stopped - Provider: Leslie Nolan RN) Continuous Medication Order 09/07/2023 09/08/2023 09/09/2023 Lactated Ringer's (LR) infusion (CANCELED) 75 mL/hr, intravenous, Continuous, Starting on Thu09/09/23 at 0445 0439 (New Bag - Prov ider: Teri Acosta RN)0805 (Stopped - Provider: Hedy Stoll RN) Lactated Ringer's (LR) infusion (CANCELED) 30 mL/hr, intravenous, Continuous, Starting on Thu09/09/23 at 0845, Pre-Op 0812 (New Bag - Prov ider: Jessica Angel RN)0916 (Paused - Provider: Rodri Key CRNA - [...] 2.5 mg, nebulization, Every 4 hours PRN (leather stamper), wheezing, shortness of breath, Starting on Thu09/09/23 at 0405, This therapy was substituted for Albuterol HFA per protocol. 0801 (OCT Hold - Pro vider: Automatic Transfer Provider - Reason: Patient not available)0801 ([facility] Unhold - Provider: Automatic Transfer Provider)0801 ([facility] Hold - Provider: Automatic Transfer Provider - Reason: Patient not available)0801 ([facility] Unhold - Provider: Automatic Transfer Provider)0802 ([facility] Hold - Provider: Automatic Transfer Provider - Reason: Patient not available)1052 ([facility] Unhold - Provider: Hedy Stoll, KIET) BUPivacaine-EPINEPHrine (MARCAINE with EPI) 0.5 %-1:200,000 preservative free injection (CANCELED) As needed, Starting on Thu09/09/23 at 0938, Intra-Op 0938 (Given - Provid er: Jared Liang MD) dicyclomine (BENTYL) capsule 20 mg 20 mg, oral, 4 times daily PRN, abdominal pain/cramping, Starting on Thu09/09/23 at 0401 0801 ([facility] Hold - Pro vider: Automatic Transfer Provider - Reason: Patient not available)0801 ([facility] Unhold - Provider: Automatic Transfer Provider)0801 ([facility] Hold - Provider: Automatic Transfer Provider - Reason: Patient not available)0801 ([facility] Unhold - Provider: Automatic Transfer Provider)0802 ([facility] Hold - Provider: Automatic Transfer Provider - Reason: Patient not available)1052 ([facility] Unhold - Provider: Hedy Stoll, KIET) famotidine (PEPCID) tablet 20 mg 20 mg, oral, Daily PRN, indigestion, heartburn, Starting on Thu09/09/23 at 0401 0801 ([facility] Hold - Pro vider: Automatic Transfer Provider - Reason: Patient not available)0801 ([facility] Unhold - Provider: Automatic Transfer Provider)0801 ([facility] Hold - Provider: Automatic Transfer Provider - Reason: Patient not available)0801 ([facility] Unhold - Provider: Automatic Transfer Provider)0802 ([facility] Hold - Provider: Automatic Transfer Provider - Reason: Patient not available)1052 ([facility] Unhold - Provider: Hedy Stoll, KIET) ioversoL (OPTIRAY 350) syringe 75 mL (COMPLETED) 75 mL, intravenous, Once in imaging, contrast, Starting on Thu09/09/23 at 0042, For 1 dose 0043 (Contrast Given - Provider: Tessa Chayo Ceron, RT) ondansetron (ZOFRAN) injection 4 mg(Linked Group 1) 4 mg, intravenous, Administer over 2 Minutes, Every 6 hours PRN, nausea, vomiting, if not tolerating PO, Starting on Thu09/09/23 at 0335, Indications: Nausea and Vomiting 0352 (Given - Provid er: Teri Acosta RN)0801 ([facility] Hold - Provider: Automatic Transfer Provider - Reason: Patient not available)0801 ([facility] Unhold - Provider: Automatic Transfer Provider)0801 ([facility] Hold - Provider: Automatic Transfer Provider - Reason: Patient not available)0801 ([facility] Unhold - Provider: Automatic Transfer Provider)0802 ([facility] Hold - Provider: Automatic Transfer Provider - Reason: Patient not available)0921 (Given - Provider: Rodri Key CRNA)1052 ([facility] Unhold - Provider: Hedy Stoll, KIET) ondansetron ODT (ZOFRAN-ODT) disintegrating tablet 4 mg(Linked Group 1) 4 mg, oral, Every 6 hours PRN, nausea, vomiting, Starting on Thu09/09/23 at 0335, Indications: Nausea and Vomiting 0352 (See Alternativ e - Provider: Teri Acosta RN)0801 ([facility] Hold - Provider: Automatic Transfer Provider - Reason: Patient not available)0801 ([facility] Unhold - Provider: Automatic Transfer Provider)0801 ([facility] Hold - Provider: Automatic Transfer Provider - Reason: Patient not available)0801 ([facility] Unhold - Provider: Automatic Transfer Provider)0802 ([facility] Hold - Provider: Automatic Transfer Provider - Reason: Patient not available)0921 (See Alternative - Provider: Rodri Key CRNA)1052 ([facility] Unhold - Provider: Hedy Stoll, KIET) polyethylene glycol (MIRALAX) packet 17 g 17 g, oral, Daily PRN, constipation, Starting on Thu09/09/23 at 0335, Indications: constipation 0801 ([facility] Hold - Pro vider: Automatic Transfer Provider - Reason: Patient not available)0801 ([facility] Unhold - Provider: Automatic Transfer Provider)0801 ([facility] Hold - Provider: Automatic Transfer Provider - Reason: Patient not available)0801 ([facility] Unhold - Provider: Automatic Transfer Provider)0802 ([facility] Hold - Provider: Automatic Transfer Provider - Reason: Patient not available)1052 ([facility] Unhold - Provider: Hedy Stoll RN) sodium chloride 0.9% irrigation (CANCELED) As [...] (0.08 3 %) nebulizer solution 2.5 mg 09/09/2023 albuterol HFA (PROVENTIL HFA ,VENTOLIN HFA,PROAIR HFA) 90 mcg/actuation inhaler 2 puff 09/09/2023 Carrier Fluids for Secondary Infusion - 0.9% Sodium Chloride 09/09/2023 cefOXitin (MEFOXITIN) 2,000 mg/20 mL in sterile water (premix) 2,000 mg 09/09/2023 dicyclomine (BENTYL) capsule 20 mg 2023 famotidine (PEPCID) tablet 20 mg 09/09/19 fentaNYL (SUBLIMAZE) preserv ative free injection 25 mcg 09/09/2023 lubiprostone (AMITIZA) capsule 24 mcg 05/2024 naloxone (NARCAN) 0.4 mg/mL injection 0.04-0.4 mg 09/09/2023 nortriptyline (PAMELOR) capsule 25 mg 05/2024 ondansetron (ZOFRAN) injection 4 mg 09/09 ondansetron ODT (ZOFRAN-ODT) disintegrating tablet 4 mg 09/09/[address] (PROTONIX) e xtended release tablet 40 mg 1 09/09/2023 polyethylene glycol (MIRALAX) packet 17 g 1 09/09/2023 sodium chloride 0.9% flush 0.5-20 mL 1 08/31 Diet Count Last Ordered Date First Orde red Date ADULT DISCHARGE DIET 1 09/09/2023 Nursing Count Last Ordered Date First Orde red Date DISCHARGE ACTIVITY 1 09/09/2023 DISCHARGE CALL PROVIDER 5 09/09/2023 FOLLOW UP WITH ESTABLISHED PROVIDER 2 09/09 Consult Count Last Ordered Date First Orde red Date IP CONSULT TO GENERAL SURGERY 1 09/09/2023 IP CONSULT TO NUTRITION SERVICES 1 09/09/19 IV Count Last Ordered Date First Orde [...] 09/09/2023 documented in this encounter Care Teams School Speech Language Pathologist Relationship Specialty Start Date End Date Parmjit Ewing MD PCP - General 12/31/20 Mere Landa NP Nurse Practitioner 02/07/20 Tico Burton MD Surgeon General Surgery 08/09/21 Jared Liang MD Consulting Physician General Surgery 09/09/23 documented as of this encounter
--- OUTSIDE RECORDS SUMMARY | 2024-08-16 04:32 | XMS_ITS | Encounter Summary ---
Author Organization [facility] Healthcare Address [address] [place] [address] Care Team Providers Care Hair Spinner Name Role Phone Mere Landa NP Unavailable [phone] Parmjit Dai MD Primary Care Provider [phone] Tico Burton MD Unavailable [phone] Ivan Liang MD Unavailable Reason for Visit * Reason Comments Ingestion Encounter Details Date Type Department Care Team (Late st Contact Info) Description 09/29/2023 11:31 AM PRINTED CIRCUIT BOARDS CONTACT PRINTER - 09/29/2023 4:18 PM [facility] Emergency Department [address] [place] [address] Juice Pineda MD [address] [place] [id number] Accidental drug ingestion, initial encounter (Primary Dx) Discharge Disposition: Discharge to home [...] Recorded In the past 12 months has [employer] gas, oil, or water company threatened to [...] on file Legal Sex Female 10:06 AM PRINTED CIRCUIT BOARDS CONTACT PRINTER Gender Identity Female 06/17/2024 7:02 AM CDT Sexual Orientation Not on file documented as of this encounter Last Filed Vital Signs Vital Sign Reading Time Taken Comments Blood Pressure 102/54 09/29/2023 3:30 PM PRINTED CIRCUIT BOARDS CONTACT PRINTER Pulse 56 09/29/2023 4:00 PM PRINTED CIRCUIT BOARDS CONTACT PRINTER Temperature 36.1 ??C (97 ??F) 09/29/2023 10:42 AM PRINTED CIRCUIT BOARDS CONTACT PRINTER Respiratory Rate 18 09/29/2023 4:00 PM PRINTED CIRCUIT BOARDS CONTACT PRINTER Oxygen Saturation 98% 09/29/2023 4:00 PM PRINTED CIRCUIT BOARDS CONTACT PRINTER Inhaled Oxygen Concentration - - Weight 56.7 kg (125 lb) 09/29/2023 10:42 AM PRINTED CIRCUIT BOARDS CONTACT PRINTER Height 162.6 cm (5' 4 ) 09/29/2023 10:42 AM PRINTED CIRCUIT BOARDS CONTACT PRINTER Body Mass Index 21.46 09/29/2023 10:42 AM PRINTED CIRCUIT BOARDS CONTACT PRINTER documented in this encounter Discharge Instructions * Discharge Instructions* Juice Pineda MD - 09/29/2023 2:28 PM PRINTED CIRCUIT BOARDS CONTACT PRINTER Do not take Eliquis, pantoprazole, famotidine, metoprolol or Tambocor today. Resume those medications tomorrow. Follow-up with your primary care doctor. TED CIRCUIT BOARDS CONTACT PRINTER * Attachments The following attachments cannot be sent through Care Everywhere. * Ingestion, Accidental: Nontoxic (Adult) (Cambodian) documented in this encounter Medications at Time [...] documented in this encounter ED Notes * Juice Pineda MD - 09/29/2023 12:10 PM CST HPI Chief Complaint Patient presents with Ingestion She accidentally took her medications twice this morning, at 5:00 a.m. and 9:00 a.m.. She says she took the 9:00 a.m. pills out of habit . Patient complains of nausea, headache, shortness of breath,dizziness, weakness. Patient History: Patient Active Problem List Diagnosis [...] Cyclic vomiting syndrome 08/09/2021 Bipolar affect, depressed ([facility]) 08/09/2021 Intussusception intestine ([facility]) ([facility]) 08/09/2021 Hypertension 08/08/2021 Abdominal pain, generalized 08/08/2021 Atrial fibrillation ([facility]) ([facility]) 05/15/2020 Essential tremor 10/12/2018 Jerky body movements 10/12/2018 Irritable bowel syndrome with both constipation and diarrhea 02/23/2018 Orthostatic dizziness 09/16/2016 Palpitations 07/29/2016 Migraine headache 07/29/2016 Past Medical History: Diagnosis Date A-fib ([facility]) ([facility]) Anemia Anxiety Arthritis Bipolar affect, depressed ([facility]) Chronic nausea 09/24/2021 Colon polyp Cyclic vomiting syndrome Depression Headache, tension-type Hypertension Hypotension IBS (irritable bowel syndrome) Migraine Nausea and vomiting, unspecified vomiting type 12/18/2021 Stroke ([facility]) TIA Weight loss Past Surgical History: Procedure [...] Systems Review of Systems Constitutional: Negative for chills and fever. HENT: Negative for congestion, rhinorrhea and sore throat. Eyes: Negative for pain. Respiratory: Positive for shortness of breath. Negative for cough. Cardiovascular: Negative for chest pain and leg swelling. Gastrointestinal: Positive for nausea. Negative for abdominal pain, diarrhea and vomiting. Genitourinary: Negative for difficulty urinating. Musculoskeletal: Negative for myalgias. Skin: Negative for rash. Neurological: Positive for dizziness and weakness. Negative for headaches. Psychiatric/Behavioral: Negative for behavioral problems. Physical Exam ED Triage Vitals [09/29/23 1042] Temp Pulse Resp BP SpO2 36.1 ??C (97 ??F) 68 16 131/82 100 % Temp src Heart Rate Source Patient Position BP Location FiO2 (%) Temporal -- -- -- -- Height Height Method Weight Weight Method 1.626 m (5' 4 ) Stated 56.7 kg (125 lb) Stated Physical Exam Vitals and nursing note reviewed. Constitutional: General: She is not in acute distress. Appearance: She is well-developed. HENT: Head: Normocephalic and atraumatic. Eyes: Conjunctiva/sclera: Conjunctivae normal. Cardiovascular: Rate and Rhythm: Normal rate and regular rhythm. Heart sounds: No murmur heard. Pulmonary: Effort: Pulmonary effort is normal. No respiratory distress. Breath sounds: Normal breath sounds. Abdominal: Palpations: Abdomen is soft. Tenderness: There is no abdominal tenderness. Musculoskeletal: General: No swelling. Cervical back: Neck supple. Skin: General: Skin is warm and dry. Capillary Refill: Capillary refill takes less than 2 seconds. Neurological: Mental Status: She is alert. Psychiatric: Mood and Affect: Mood normal. Labs Reviewed CBC WITH AUTO DIFFERENTIAL - Abnormal Result Value WBC 5.0 Hgb 12.6 Hct 39.9 Plt 247 MPV 10.8 RBC 4.51 MCV 88.5 MCH 27.9 MCHC 31.6 (*) RDW CV 20.5 (*) RDW SD 65.5 (*) NRBC abs 0.00 COMPREHENSIVE METABOLIC PANEL Sodium 142 Potassium, pl 3.7 Chloride 103 CO2 26 Anion gap 13 BUN 7 Creatinine 0.82 Glucose 94 Calcium 10.0 Bilirubin, total 0.4 Protein, pl 7.9 Albumin 4.9 Alk phos 97 ALT 32 AST 30 MAGNESIUM Magnesium 2.2 DIFFERENTIAL AUTO Neutrophil abs 2.8 Imm gran abs 0.0 Lymphocyte abs 1.7 Monocyte abs 0.5 Eosinophil abs 0.0 Basophil abs 0.0 Neutrophil pct 56.4 Imm gran pct 0.4 Lymphocyte pct 32.7 Monocyte pct 9.1 Eosinophil pct 0.8 Basophil pct 0.6 EGFR eGFR 84 No orders to display MDM NIH Score Medical Decision Making Patient presents with accidental ingestion including Eliquis, pantoprazole, famotidine, metoprolol,flecainide. Amount and/or Complexity of Data Reviewed Labs: Details: Labs unremarkable ECG/medicine tests: ordered and independent interpretation performed. Details: EKG: Sinus bradycardia, rate 58 EKG: Sinus rhythm, rate 62, normal Discussion of management or test interpretation with external provider(s): Differential diagnosis: Accidental ingestion, arrhythmia. Main concern is the flecainide. Patient observed for 6 hours. EKGswere normal. Final diagnoses: Accidental drug ingestion, initial encounter Juice Pineda MD 09/29/23 1527 TED CIRCUIT BOARDS CONTACT PRINTER * Julia Molina RN - 09/29/2023 10:40 AM CST Pt to ED for c/o I think I took my morning medications twice today on accident . Pt reports she called poison control and was advised to come to ED for observation. Pt reports she believes she took Eliquis, Pantoprazole, Famotidine, Metoprolol and Tambocor twice. TED CIRCUIT BOARDS CONTACT PRINTER documented in this encounter Miscellaneous Notes * ED Procedure Note - Juice Pineda MD - 09/29/2023 1:43 PM CSTAssociated Order(s): ECG 12 lead Procedure ECG 12 lead Date/Time: 09/29/2023 1:43 PM Performed by: Juice Pineda MD Authorized by: Juice Pineda MD Rate: ECG rate: 62 ECG rate assessment: normal Rhythm: Rhythm: sinus rhythm Interpretation: Interpretation: normal Juice Pineda MD 09/29/23 1343 TED CIRCUIT BOARDS CONTACT PRINTER documented in this encounter Plan of Treatment Upcoming Encounters Date Type Department Care Team (Latest Contact Info) Description 09/07/2024 8:30 AM PRINTED CIRCUIT BOARDS CONTACT PRINTER Hospital Encounter [address] [place] [phone] Forest Catherine MD [address] [place] [address] 09/07/2024 8:30 AM PRINTED CIRCUIT BOARDS CONTACT PRINTER - 09/07/2024 9:00 AM PRINTED CIRCUIT BOARDS CONTACT PRINTER Surgery [facility] [address] [place] [phone] Forest Catherine MD [address] [place] [address] EGD w/Endo Flip & YI placement Scheduled Procedures Name Priority Associated Diagnoses Date/Ti in ESOPHAGOGASTRODUODENOSCOPY Hiatal hernia Gastroesophageal reflux disease, unspecified whether esophagitis present 09/07/2024 8:30 AM PRINTED CIRCUIT BOARDS CONTACT PRINTER documented as of this encounter Procedures Procedure Name Priority Date/Time Associated Diagnosis Comments ECG 12-LEAD Routine 09/29/2023 1:30 PM PRINTED CIRCUIT BOARDS CONTACT PRINTER EGFR STAT 09/29/2023 11:02 AM PRINTED CIRCUIT BOARDS CONTACT PRINTER DIFFERENTIAL AUTO STAT 09/29/2023 11: 02 AM PRINTED CIRCUIT BOARDS CONTACT PRINTER CBC WITH AUTO DIFFERENTIAL STAT 09/29/2023 11:02 AM PRINTED CIRCUIT BOARDS CONTACT PRINTER MAGNESIUM Routine 09/29/2023 11:02 AM PRINTED CIRCUIT BOARDS CONTACT PRINTER COMPREHENSIVE METABOLIC PANEL STAT 09/29/2023 11:02 AM PRINTED CIRCUIT BOARDS CONTACT PRINTER ECG 12-LEAD STAT 09/29/2023 10:49 AM PRINTED CIRCUIT BOARDS CONTACT PRINTER documented in this encounter Results * ECG 12 lead (09/29/2023 1:30 PM PRINTED CIRCUIT BOARDS CONTACT PRINTER) 09/29/2023 1:30 PM PRINTED CIRCUIT BOARDS CONTACT PRINTER Narrative [facility] - 09/29/2023 3:02 PM PRINTED CIRCUIT BOARDS CONTACT PRINTER Vent Rate: 62 bpm RR Interval: 965 msec PA Interval: 164 msec QRS Duration: 80 msec QT Interval: 431 msec QTC Interval: 436 msec P-R-T Viola: 71 - 22 - 36 degrees IMPRESSION: SINUS RHYTHM POOR R-WAVE PROGRESSION - LATE TRANSISITION VS. ANTERIOR WV INDETERMINATE AGE NORMAL ECG NO CHANGE FROM PREVIOUS TRACING NOTED Electronically Signed By: Arnaldo Yan MD us Juice Pineda MD ECG ORDERABLES Final Result [facility] * eGFR (09/29/2023 11:02 AM PRINTED CIRCUIT BOARDS CONTACT PRINTER) eGFR 84 mL/min/1. 73 m2 [facility] ([place] Comment: [...] interpretive data was last reviewed 2021. Blood 09/29/2023 11:0 2 AM PRINTED CIRCUIT BOARDS CONTACT PRINTER 09/29/2023 11:17 AM PRINTED CIRCUIT BOARDS CONTACT PRINTER us Beverley Paige MD LAB BLOOD ORDERABLE S Final Result [facility] ([place]) 1 [facility] [place] [address] * Differential, auto (09/29/2023 11:02 AM PRINTED CIRCUIT BOARDS CONTACT PRINTER) Neutrophil abs 2.8 1.5 - 6.5 K/cumm [facility] ([place]) Imm gran abs 0.0 0.0 - 0.1 K/cumm [facility] ([place]) Lymphocyte abs 1.7 0.8 - 3.3 K/cumm [facility] ([place]) Monocyte abs 0.5 0.2 - 0.8 K/cumm [facility] ([place]) Eosinophil abs 0.0 0.0 - 0.5 K/cumm [facility] ([place]) Basophil abs 0.0 0.0 - 0.1 K/cumm [facility] ([place]) Neutrophil pct 56.4 % [facility] ([place]) Comment: Interpretive Data Percent cell count reference [...] was last revised on 2017. Lymphocyte pct 32.7 % [facility] ([place]) Comment: Interpretive Data Percent cell count reference ranges are not reported, since discordance with absolute values may lead to misinterpretation of CBC data. Current Interpretive Data was last revised on 2017. Monocyte pct 9.1 % [facility] ([place]) Comment: Interpretive Data Percent cell count reference ranges are not reported, since discordance with absolute values may lead to misinterpretation of CBC data. Current Interpretive Data was last revised on 2017. Eosinophil pct 0.8 % [facility] ([place]) Comment: Interpretive [...] Data was last revised on 2017. Blood 09/29/2023 11:0 2 AM PRINTED CIRCUIT BOARDS CONTACT PRINTER 09/29/2023 11:17 AM PRINTED CIRCUIT BOARDS CONTACT PRINTER Beverley Paige MD LAB BLOOD ORDERABLE S Final Result [facility] ([place]) 1 [facility] [place] [place] [address] * Magnesium (09/29/2023 11:02 AM PRINTED CIRCUIT BOARDS CONTACT PRINTER) Pathologist [facility] Magnesium 2.2 1.4 - 2.5 mg/dL [facility] ([place]) Blood 09/29/2023 11:0 2 AM PRINTED CIRCUIT BOARDS CONTACT PRINTER 09/29/2023 11:17 AM PRINTED CIRCUIT BOARDS CONTACT PRINTER Beverley Paige MD LAB BLOOD ORDERABLE S Final Result Performing Organization Address City/[facility]/ZIP Co de Phone Number [facility] ([place]) 1 [facility] [place] [address] * (ABNORMAL) CBC with auto differential (09/29/2023 11:02 AM PRINTED CIRCUIT BOARDS CONTACT PRINTER) WBC 5.0 3.8 - 9.9 K/cumm [facility] ([place]) Hgb 12.6 11.9 - 15.5 g/dL [facility] ([place]) Hct 39.9 35.6 - 45.5 % [facility] ([place]) Plt 247 150 - 400 K/cumm [facility] ([place]) MPV 10.8 9.1 - 12.3 fL [facility] ([place]) RBC 4.51 3.90 - 5.20 M/cumm [facility] ([place]) MCV 88.5 81.3 - 96.4 fL [facility] ([place]) MCH 27.9 27.1 - 33.3 pg [facility] ([place]) MCHC 31.6(L) 32.3 - 35.7 g/dL [facility] ([place]) RDW CV 20.5(H) 11.1 - 14.9 % [facility] ([place]) RDW SD 65.5(H) 35.7 - 48.1 fL [facility] NRBC abs 0.00 0.00 - 0.01 K/cumm [facility] ([place]) Blood 09/29/2023 11:0 2 AM PRINTED CIRCUIT BOARDS CONTACT PRINTER 09/29/2023 11:17 AM PRINTED CIRCUIT BOARDS CONTACT PRINTER us Beverley Paige MD LAB BLOOD ORDERABLE S Final Result [facility] ([place]) 1 [facility] Department [place] [address] * Comprehensive metabolic panel (09/29/2023 11:02 AM PRINTED CIRCUIT BOARDS CONTACT PRINTER) Sodium 142 135 - 145 mmol/L [facility] Potassium, pl 3.7 3.3 - 4.9 mmol/L [facility] Chloride 103 97 - 110 mmol/L [facility]) CO2 26 22 - 32 mmol/L [facility] ([place]) Anion gap 13 2 - 15 mmol/L [facility] BUN 7 6 - 25 mg/dL [facility] ([place]) Creatinine 0.82 0.60 - 1.10 mg/dL [facility] Glucose 94 70 - 199 mg/dL [facility] ([place]) Comment: Interpretive Data Fasting glucose [...] interpretive data was last revised 2022. Calcium 10.0 8.5 - 10.3 mg/dL [facility] ([place]) Bilirubin, total 0.4 0.1 - 1.2 mg/dL [facility] ([place]) Protein, pl 7.9 6.5 - 8.5 g/dL [facility] ([place]) Albumin 4.9 3.5 - 5.0 g/dL [facility] ([place]) Alk phos 97 40 - 130 Units/L [facility] ([place]) ALT 32 7 - 45 Units/L [facility] ([place]) AST 30 10 - 45 Units/L [facility] ([place]) Blood 09/29/2023 11:0 2 AM PRINTED CIRCUIT BOARDS CONTACT PRINTER 09/29/2023 11:17 AM PRINTED CIRCUIT BOARDS CONTACT PRINTER Beverley Paige MD LAB BLOOD ORDERABLE S Final Result Performing Organization Address [facility] Co de Phone Number [facility] ([place]) 1 [facility] [place] [address] * ECG 12 lead (09/29/2023 10:49 AM PRINTED CIRCUIT BOARDS CONTACT PRINTER) 09/29/2023 10:4 9 AM PRINTED CIRCUIT BOARDS CONTACT PRINTER Narrative [facility] - 09/29/2023 3:02 PM PRINTED CIRCUIT BOARDS CONTACT PRINTER Vent Rate: 58 bpm RR Interval: 1021 msec PA Interval: 155 msec QRS Duration: 94 msec QT Interval: 422 msec QTC Interval: 419 msec P-R-T Viola: 77 - 79 - 71 degrees IMPRESSION: SINUS BRADYCARDIA WITH SINUS ARRHYTHMIA SEPTAL MYOCARDIAL INFARCTION , PROBABLY OLD [40+ ms Q WAVE IN V1/V2] ABNORMAL ECG NO CHANGE FROM PREVIOUS TRACING NOTED Electronically Signed By: Arnaldo Yan MD us Juice Pineda MD ECG ORDERABLES Final Result Performing Organization Address [facility] Co de Phone Number [facility] [employer] [facility] documented in this encounter Visit Diagnoses Diagnosis Accidental drug ingestion, initial encounter- Primary Hiatal hernia Diaphragmatic hernia without mention of obstruction or gangrene Gastroesophageal reflux disease, unspecified whether esophagitis present documented in this encounter Care Teams Hair Spinner Relationship Specialty Start Date End Date Parmjit Dai MD PCP - General 12/31/20 Mere Landa NP Nurse Practitioner 02/07/20 Tico Burton MD Surgeon General Surgery 08/09/21 Ivan Liang MD Consulting Physician General Surgery 09/09/23 documented as of this encounter
--- OUTSIDE RECORDS SUMMARY | 2024-08-16 04:32 | XMS_ITS | Encounter Summary ---
Author Organization [facility] Healthcare Address [address] [place] [address] Care Team Providers Care Last Picker Name Role Phone Mere Landa NP Unavailable [phone] Parmjit Dai MD Primary Care Provider [phone] Tico Burton MD Unavailable [phone] Ivan Liang MD Unavailable Encounter Details Date Type Department Care Team (Late st Contact Info) Description 11/24/2023 Telephone [facility] [address] [address] Maty Hammond RN Social History Tobacco Use Types Packs/Day Years Used Date Smoking Tobacco: Former Cigarettes 4 - 1999 Vaping Smokeless Tobacco: Never Comments:off and on Alcohol Use Standard Drinks/Week Comments No 0 (1 standard drink = 0.6 oz pur e alcohol) on occasion [facility] Utilities Answer Date Recorded In the past 12 months has [employer], gas, oil, or water company threatened [...] often do you attend chur ch or worship services? Never 09/09/2023 Do you [...] on file Legal Sex Female 10:06 AM ROPE TOW OPERATOR Gender Identity Female 06/17/2024 7:02 AM CDT Sexual Orientation Not on file documented as of this encounter Miscellaneous Notes * Telephone Encounter - Maty Hammond RN - 11/24/2023 3:52 PM CDT Instructions given to patient and information mailed for esophageal manometry on 02/08/24. documented in this encounter Plan of Treatment Upcoming Encounters Date Type Department Care Team (Latest Contact Info) Description 09/07/2024 8:30 AM ROPE TOW OPERATOR Hospital Encounter [facility] [address] [place] [phone] Forest Catherine MD [address] [address] 09/07/2024 8:30 AM ROPE TOW OPERATOR - 09/07/2024 9:00 AM ROPE TOW OPERATOR Surgery [facility] [address] [place] [phone] Forest Catherine MD [address] [address] EGD w/Endo Flip & YI placement Scheduled Procedures Name Priority Associated Diagnoses Date/Ti me ESOPHAGOGASTRODUODENOSCOPY Hiatal hernia Gastroesophageal reflux disease, unspecified whether esophagitis present 09/07/2024 8:30 AM ROPE TOW OPERATOR documented as of this encounter Visit Diagnoses Not on filedocumented in this encounter Discontinued Medications Medication Sig Discontinue Reason Start Date End Da te atorvastatin (LIPITOR) 40 mg tablet Take 1 tablet (40 mg total) by mouth daily 11/24/2023 documented as of this encounter Historical Medications * This list may reflect changes made after this encounter. mirtazapine (REMERON) 15 mg tablet 11/18/2023 cephalexin (KEFLEX) 500 mg capsule Take 1 capsule (500 mg total) by mouth every 12 (twelve) hours 11/20/2023 added in this encounter Care Teams Last Picker Relationship Specialty Start Date End Date Parmjit Dai MD PCP - General 12/31/20 Mere Landa NP Nurse Practitioner 02/07/20 Tico Burton MD Surgeon General Surgery 08/09/21 Ivan Liang MD Consulting Physician General Surgery 09/09/23 documented as of this encounter
--- OUTSIDE RECORDS SUMMARY | 2024-08-16 04:32 | XMS_ITS | Encounter Summary ---
Author Organization [facility] Healthcare Address [address] [place] [address] Care Team Providers Care Facilities Technician Name Role Phone Mere Landa NP Unavailable [phone] Parmjit Dai MD Primary Care Provider [phone] Tico Burton MD Unavailable [phone] Ivan Liang MD Unavailable Reason for Visit * Reason Comments Post-op : LAPAROSCOPIC APPEN DECTOMY 09/09/23 Encounter Details Date Type Department Care Team (Late st Contact Info) Description 09/17/2023 8:50 AM TEACHERS ASSISTANT Office Visit [address] [place] [address] Ivan Liang MD [address] [place] [address] [address] [place] [address] Appendix disease (Primary Dx) Social History Tobacco Use Types Packs/Day Years Used Date Smoking Tobacco: Former Cigarettes - 1999 Vaping Smokeless Tobacco: Never Comments:off and on Alcohol Use Standard Drinks/Week Comments No 0 (1 standard drink = 0.6 oz pur e alcohol) on occasion [facility] Utilities Answer Date Recorded In the past 12 months has [employer], gas, oil, or water company threatened to [...] often do you attend chur ch or hinduism services? Never 09/09/2023 Do you belong to [...] place to sleep or slept in a [place] (including now)? No 09/09/2023 Personal Safety Answer Date Recorded Getting School Help Needed Denies 08/10 Comments No Sex and Gender Information Value Date Recorded Sex Assigned at Not on file Legal Sex Female 10:06 AM TEACHERS ASSISTANT Gender Identity Female 06/17/2024 7:02 AM CDT Sexual Orientation Not on file documented as of this encounter Last Filed Vital Signs Vital Sign Reading Time Taken Comments Blood Pressure 104/63 09/17/2023 9:12 AM TEACHERS ASSISTANT Pulse 69 09/17/2023 9:12 AM TEACHERS ASSISTANT Temperature 36.2 ??C (97.1 ??F) 09/17/2023 9:12 AM CS T Respiratory Rate - - Oxygen Saturation 98% 09/17/2023 9:12 AM TEACHERS ASSISTANT Inhaled Oxygen Concentration - - Weight 58.2 kg (128 lb 3.2 oz) 09/17/2023 9:12 A M TEACHERS ASSISTANT Height 162.6 cm (5' 4 ) 09/17/2023 9:12 AM TEACHERS ASSISTANT Body Mass Index 22.01 09/17/2023 9:12 AM TEACHERS ASSISTANT documented in this encounter Progress Notes * Ivan Liang MD - 09/17/2023 8:50 AM CST Images from the original note were not included. Post Op Note Subjective: Patient Name: Sarahy Gill Date of Visit: 09/17/23 HPI: No complaints since surgery. Had some issues with diarrhea and then constipation but these areimproving. Tolerating a diet Chief Complaint: Post-op (: LAPAROSCOPIC APPENDECTOMY 09/09/23) Objective: Vitals BP 104/63 (BP Location: Right arm, Patient Position: Sitting) Pulse 69 Temp 36.2 ??C (97.1 ??F) Ht 162.6 cm (5' 4 ) Wt 58.2 kg (128 lb 3.2 oz) SpO2 98% BMI 22.01 kg/m?? Physical Exam Incisions clean, dry and intact Assessment/Plan Diagnoses and all orders for this visit: Appendix disease (Primary) Assessment & Plan: Diet as tolerates. Continue bowel regimen if needed to avoid straining. No submerging incision for 1 more week. Light duty for another 2 weeks. Patient will call us back with any further questions orconcerns. 9:54 AM 09/17/2023 HERS ASSISTANT documented in this encounter Miscellaneous Notes * Assessment & Plan Note - Ivan Liang MD - 09/17/2023 9:54 AM CSTAssociated Problem(s): Appendix disease Diet as tolerates. Continue bowel regimen if needed to avoid straining. No submerging incision for 1 more week. Light duty for another 2 weeks. Patient will call us back with any further questions orconcerns. HERS ASSISTANT documented in this encounter Plan of Treatment Upcoming Encounters Date Type Department Care Team (Latest Contact Info) Description 09/07/2024 8:30 AM TEACHERS ASSISTANT Hospital Encounter [facility] [address] [place] [phone] Forest Catherine MD [address] [address] 09/07/2024 8:30 AM TEACHERS ASSISTANT - 09/07/2024 9:00 AM TEACHERS ASSISTANT Surgery [facility] [address] [place] [phone] Forest Catherine MD [address] [address] EGD w/Endo Flip & YI placement Scheduled Procedures Name Priority Associated Diagnoses Date/Ti me ESOPHAGOGASTRODUODENOSCOPY Hiatal hernia Gastroesophageal reflux disease, unspecified whether esophagitis present 09/07/2024 8:30 AM TEACHERS ASSISTANT documented as of this encounter Visit Diagnoses Diagnosis Appendix disease- Primary Other and unspecified diseases of appendix Hiatal hernia Diaphragmatic hernia without mention of obstruction or gangrene Gastroesophageal reflux disease, unspecified whether esophagitis present documented in this encounter Care Teams Facilities Technician Relationship Specialty Start Date End Date Parmjit Dai MD PCP - General 12/31/20 Mere Landa NP Nurse Practitioner 02/07/20 Tico Burton MD Surgeon General Surgery 08/09/21 Ivan Liang MD Consulting Physician General Surgery 09/09/23 documented as of this encounter
--- OUTSIDE RECORDS SUMMARY | 2024-08-16 04:32 | XMS_ITS | Encounter Summary ---
Author Organization [facility] Healthcare Address [address] [place] [address] Care Team Providers Care Block Chopper Hand Name Role Phone Mere Landa NP Unavailable [phone] Parmjit Dai MD Primary Care Provider [phone] Tico Burton MD Unavailable [phone] Ivan Liang MD Unavailable Encounter Details Date Type Department Care Team (Late st Contact Info) Description 11/25/2023 Telephone [facility] [address] [id number] Maty Hammond RN Social History Tobacco Use Types Packs/Day Years Used Date Smoking Tobacco: Former Cigarettes 4 - 1999 Vaping Smokeless Tobacco: Never Comments:off and on Alcohol Use Standard Drinks/Week Comments No 0 (1 standard drink = 0.6 oz pur e alcohol) on occasion [facility] Utilities Answer Date Recorded In the past 12 months has [employer], gas, oil, or water company threatened [...] any clubs o r organizations such as shinto groups, unions, fraternal or athletic groups, or [...] place to sleep or slept in a half-way (including now)? No 09/09/2023 Personal Safety Answer Date Recorded Have you ever been in or are you currently in a harmful physical or emotional relationship or is someone making you feel afraid or unsafe? Denies 10/07/2023 Comments No Sex and Gender Information Value Date Recorded Sex Assigned at Not on file Legal Sex Female 10:06 AM MEDICAL SCIENTIFIC LIAISON Gender Identity Female 06/17/2024 7:02 AM CDT Sexual Orientation Not on file documented as of this encounter Miscellaneous Notes * Telephone Encounter - Maty Hammond, RN - 11/25/2023 8:29 AM CDT Instructions given to patient and information mailed for ARM on 02/08/24 at 10:00 documented in this encounter Plan of Treatment Upcoming Encounters Date Type Department Care Team (Latest Contact Info) Description 09/07/2024 8:30 AM MEDICAL SCIENTIFIC LIAISON Hospital Encounter [facility] [address] [place] [phone] Forest Catherine MD [address] [address] 09/07/2024 8:30 AM MEDICAL SCIENTIFIC LIAISON - 09/07/2024 9:00 AM MEDICAL SCIENTIFIC LIAISON Surgery [facility] [address] [place] [phone] Forest Catherine MD [address] [address] EGD w/Endo Flip & YI placement Scheduled Procedures Name Priority Associated Diagnoses Date/Ti me ESOPHAGOGASTRODUODENOSCOPY Hiatal hernia Gastroesophageal reflux disease, unspecified whether esophagitis present 09/07/2024 8:30 AM MEDICAL SCIENTIFIC LIAISON documented as of this encounter Visit Diagnoses Not on filedocumented in this encounter Care Teams Block Chopper Hand Relationship Specialty Start Date End Date Parmjit Dai MD PCP - General 12/31/20 Mere Landa NP Nurse Practitioner 02/07/20 Tico Burton MD Surgeon General Surgery 08/09/21 Ivan Liang MD Consulting Physician General Surgery 09/09/23 documented as of this encounter
--- OUTSIDE RECORDS SUMMARY | 2024-08-16 04:33 | XMS_ITS | Encounter Summary ---
Author Organization [facility] Address [address] [place] [address] Care Team Providers Care Manager Math Name Role Phone Mere Landa NP Unavailable [phone] Parmjit Dai MD Primary Care Provider [phone] Tico Burton MD Unavailable [phone] Reason for Visit * Auth/Cert (Routine) Specialty Diagnoses / Procedures Referred By Contgonzalo t Referred To Contact Diagnoses Abdominal pain Dyspepsia Abdominal pain [R10.9] Dyspepsia [R10.13] Procedures [place] ESOPHAGOGASTRODUODENOSCOPY TRANSORAL DIAGNOSTIC ESOPHAGOGASTRODUODENOSCOPY Referral ID Status Reason Start Date Expiration Date Visits Re quested Visits Authorized [id number] 1 1 Encounter Details Date Type Department Care Team (Latest Contact Info) Description 08/21/2023 10:30 AM LOSS PREVENTION AGENT - 08/21/2023 11:00 AM LOSS PREVENTION AGENT Surgery [facility] [address] [place] [address] Germania Sorto MD [address] [place] [id number] ESOPHAGOGASTRODUODENOSCOPY BIOPSY Surgery Details Date/Time Status Location OR Service Patient Class Case Class Case Type Trauma Case? 08/21/2023 10:30 AM Posted [facility] GI 01 Gastroenterology Outpatient Elective Panel 1 Procedure LRB Anes Op Region Wound Class Comments ESOPHAGOGASTRODUODENOSCOPY BIOPSY N/A Monitor Anesthesia Care BOUGIE DILATION N/A Choice Surgeon Surgeon Role Service Panel Germania Sorto MD Primary Gastroenterology 1 documented in this encounter Social History Tobacco Use Types Packs/Day Years Used Date Smoking Tobacco: Former Cigarettes 1 - 1999 Vaping Smokeless Tobacco: Never Tobacco Cessation:Counseling Given: Not Answered Comments:off and on Alcohol Use Standard Drinks/Week Comments No 0 (1 standard drink = 0.6 oz pur e alcohol) on occasion AUDIT-C Answer Date Recorded Q1: How often do you have a drink containing alcohol? Never 06/08/2023 Q2: How many drinks containi ng alcohol do you have on a typical day when you are drinking? Patient does not drink Q3: How often do you have si x or more drinks on one occasion? Never 06/08/2023 PHQ-2 Answer Date Recorded PHQ-2 Total Score (If total score is 3 or more points, staff should administer the PHQ-9) 0 08/09/2021 Personal Safety Answer Date Recorded Getting School Help Needed Denies 08/10 Comments No Sex and Gender Information Value Date Recorded Sex Assigned at Not on file Legal Sex Female 10:06 AM LOSS PREVENTION AGENT Gender Identity Female 06/17/2024 7:02 AM CDT Sexual Orientation Not on file documented as of this encounter Last Filed Vital Signs Vital Sign Reading Time Taken Comments Blood Pressure 107/70 08/21/2023 10:48 AM LOSS PREVENTION AGENT Pulse 64 08/21/2023 10:48 AM LOSS PREVENTION AGENT Temperature 37.1 ??C (98.8 ??F) 08/21/2023 9:12 AM CS T Respiratory Rate 16 08/21/2023 10:48 AM LOSS PREVENTION AGENT Oxygen Saturation 100% 08/21/2023 10:48 AM LOSS PREVENTION AGENT Inhaled Oxygen Concentration - - Weight 60.8 kg (134 lb) 08/21/2023 9:12 AM LOSS PREVENTION AGENT Height 162.6 cm (5' 4 ) 08/21/2023 9:12 AM LOSS PREVENTION AGENT Body Mass Index 23 08/21/2023 9:12 AM LOSS PREVENTION AGENT documented in this encounter Medications at Time [...] needed (abdominal pain/cramping) 360 capsule 3 04/17/2023 famotidine (PEPCID) 20 mg tablet Take 1 [...] documented in this encounter H&P Notes * Germania Sorto MD - 08/21/2023 10:43 AM CST History and Physical Date of visit: 08/21/2023 Subjective: Patient is a 53 y.o. female presented for evaluation for chronic abdominal pain and vomiting. Past Medical History: Diagnosis Date A-fib (CMS/HCC) (HCC) Anxiety Arthritis Bipolar affect, depressed ([facility]) Chronic nausea 09/24/2021 Colon polyp Cyclic vomiting syndrome Depression Headache, tension-type Hypertension Hypotension IBS (irritable bowel syndrome) Migraine Nausea and vomiting, unspecified vomiting type 12/18/2021 Stroke ([facility]) Weight loss Past Surgical History: Procedure Laterality Date ABDOMINAL SURGERY 2012 hiatel hernia repair ARTHROSCOPIC SURGERY Left 1984,1994,2001 knee SECTION 1992 CHOLECYSTECTOMY COLONOSCOPY 1-2yrs ago COLONOSCOPY 10/29/2022 ENDOMETRIAL ABLATION HERNIA REPAIR POLYPECTOMY TUBAL LIGATION Medications Prior to Admission Medication Sig Dispense Refill Last Dose apixaban (ELIQUIS) 5 mg tablet Take 1 tablet (5 mg total) by mouth 2 (two) times a day Past Week flecainide (TAMBOCOR) 100 mg tablet TAKE 1 TABLET BY MOUTH TWICE DAILY. START TAKING Saturday 07/0708/21/2023 metoprolol XL (TOPROL-XL) 25 mg extended release tablet Take 1 tablet (25 mg total) by mouth daily 08/21/2023 albuterol HFA (PROVENTIL HFA,VENTOLIN HFA,PROAIR HFA) 90 mcg/actuation inhaler 2 puffs every 4 (four) hours as needed atorvastatin (LIPITOR) 40 mg tablet Take 1 [...] as needed (abdominal pain/cramping) 360 capsule 3 famotidine (PEPCID) 20 mg tablet Take 1 tablet (20 mg total) by mouth daily as needed for indigestion or heartburn 180 tablet 3 lubiprostone (AMITIZA) 24 mcg capsule Take 1 capsule (24 mcg total) by mouth 2 (two) times a day with meals 180 capsule 3 More than a month nortriptyline (PAMELOR) 25 mg capsule Take 1 [...] date: 1983 Quit date: 2000 Years since quittin.9 Smokeless tobacco: Never Tobacco comments: off and on Substance and Sexual Activity Drug use: Yes Types: Marijuana Comment: occasionally last used 10/28/2022 Sexual activity: Defer control/protection: Post-menopausal Alcohol Use: Not At Risk (06/08/2023) AUDIT-C Frequency of Alcohol Consumption: Never Average Number of Drinks: Patient does not drink Frequency of Binge Drinking: Never Family History Problem Relation Age of Onset Esophageal cancer Maternal Grandmother Heart disease Maternal Grandmother Stroke Maternal Grandmother Hypertension Maternal Grandmother Migraines Mother Physical Exam: Patient is awake and answers well. Eyes: no jaundice. Lungs: CTA anteriorly. ENT: no mouth ulcers. Abdomen: soft, no distention, no tenderness, bowel sounds positive. Extremities: no edema. Skin: no rash. GI IMPRESSION: Chronic abdominal pain and vomiting GI PLAN/RECOMMENDATIONS: EGD Germania Sorto MD PREVENTION AGENT documented in this encounter Procedure Notes * Germania Sorto MD - 08/21/2023 9:09 AM CSTAssociated Order(s): EGD [facility] Patient Name: Sarahy Gill Procedure Date: 08/21/2023 9:09 AM Date of : 1970 Admit Type: Outpatient Age: 53 Gender: Female Attending MD: Germania Sorto M.D. Room: [facility] ROOM 1 Note Status: Upper Inspector Override Patient Profile: This is a 53 year old female. Patient has chronic complaints of abdominal pain, nausea vomiting and dry heaving intermittently, intermittent dysphagia. Noted patient smokes marijuana regularly. Recent CT angiogram of the abdomen was unremarkable except for mild thickening at the appendix as well as a small phleboliths. On exam she does have mild tenderness in the right lower quadrant area. Procedure: Upper GI endoscopy Indications: Generalized abdominal pain, Dysphagia, Nausea with vomiting Referring MD: Parmjit Dai M.D. Providers: Germania Sorto M.D. Impression: - A single small benign gastric polyp. Resected and retrieved. - Chronic gastritis. Biopsied. - Mild esophageal dysmotility otherwise normal esophagus. Biopsied. Dilated. Recommendation: - Await pathology results. - Continue present medications. - I think there is a good element of functional symptoms. If the abdominal pain continued and specially if patient has tenderness in the right lower quadrant then 1 should consider empiric appendectomy considering the recent CT findings. - Patient will definitely benefit from stopping marijuana use. Medicines: Monitored Anesthesia Care Complications: No immediate complications. Estimated Blood Loss: Estimated blood loss: none. Procedure: Pre-Anesthesia Assessment: - Prior to the procedure, a History and Physical was performed, and patient medications and allergies were reviewed. The patient's tolerance of previous anesthesia was also reviewed. The risks and benefits of the procedure and the sedation options and risks were discussed with the patient. All questions were answered, and informed consent was obtained. Prior Anticoagulants: The patient has taken no anticoagulant or antiplatelet agents. ASA Grade Assessment: Per anesthesia note and evaluation. After reviewing the risks and benefits, the patient was deemed in satisfactory condition to undergo the procedure. The benefits, risks, and alternatives to the procedure and sedation were discussed and informed consent was obtained. The scope was passed under direct vision. The Endoscope GIF-H190 [id number] was introduced through the mouth, and advanced to the second part of duodenum. The upper GI endoscopy was accomplished without difficulty. The patient tolerated the procedure well. Findings: The examined duodenum was normal. A single 4 mm semi-sessile polyp with no stigmata of recent bleeding was found in the gastric antrum. The polyp was removed with a cold biopsy forceps. Resection and retrieval were complete. Localized mild inflammation characterized by erosions and erythema was found in the prepyloric region of the stomach. Biopsies were taken with a cold forceps for histology. Mild irregularity noted at the Z-line at the GE junction which may represent mild reflux esophagitis. No erosions and no ulcers The examined esophagus was normal. Spasm noted in the esophagus body which may represent dysmotility. Biopsies were taken with a cold forceps for histology. The scope was withdrawn. Dilation was performed with a Hills dilator with no resistance at 52 Fr. Electronically signed by Germania Sorto M.D. Germania Sorto M.D. 08/21/2023 11:07:47 AM Number of Addenda: 0 Note Initiated On: 08/21/2023 9:09 AM Procedure Code(s): --- Professional --- 09951, Esophagogastroduodenoscopy, flexible, transoral; with biopsy, single or multiple 70074, Dilation of esophagus, by unguided sound or bougie, single or multiple passes Diagnosis Code(s): --- Professional --- K31.7, Polyp of stomach and duodenum K29.50, Unspecified chronic gastritis without bleeding R10.84, Generalized abdominal pain R13.10, Dysphagia, unspecified R11.2, Nausea with vomiting, unspecified CPT copyright 2020 [employer]. All rights reserved. The codes documented in this report are preliminary and upon fish bait processing supervisor review may be revised to meet current compliance requirements. Recognized by the [employer] for promoting quality in endoscopy PREVENTION AGENT PREVENTION AGENT documented in this encounter Miscellaneous Notes * Perioperative Nursing Note - Mery Mcelroy RN - 08/21/2023 11:10 AM LOSS PREVENTION AGENT Dr. Sorto spoke with patient regarding today's procedure. He stated patient may try to cease marijuana and may opt for appendix removal after follow up in office in August. PREVENTION AGENT documented in this encounter Plan of Treatment Upcoming Encounters Date Type Department Care Team (Latest Contact Info) Description 09/07/2024 8:30 AM LOSS PREVENTION AGENT Hospital Encounter [facility] [address] [place] [id number] Forest Catherine MD [address] [facility] [address] [place], [place] [id number] 09/07/2024 8:30 AM LOSS PREVENTION AGENT - 09/07/2024 9:00 AM LOSS PREVENTION AGENT Surgery [facility] [address] [place] [address] Forest Catherine MD [address] [place] [address] EGD w/Endo Flip & YI placement Scheduled Procedures Name Priority Associated Diagnoses Date/Ti me ESOPHAGOGASTRODUODENOSCOPY Hiatal hernia Gastroesophageal reflux disease, unspecified whether esophagitis present 09/07/2024 8:30 AM LOSS PREVENTION AGENT documented as of this encounter Procedures Procedure Name Priority Date/Time Associated Diagnosis Comments SURGICAL PATHOLOGY STAT 08/21/2023 11:36 AM LOSS PREVENTION AGENT Abdominal pain Dyspepsia BOUGIE DILATION 08/21/2023 10:08 AM LOSS PREVENTION AGENT Abdominal pain Dyspepsia ESOPHAGOGASTRODUODENOSCOPY BIOPSY 08/21/2023 10:08 AM LOSS PREVENTION AGENT Abdominal pain Dyspepsia EGD 08/21/2023 9:09 AM LOSS PREVENTION AGENT documented in this encounter Results * Surgical pathology (08/21/2023 11:36 AM LOSS PREVENTION AGENT) Tissue (Gastric/Stomach biopsy) 08/21/2023 10:30 AM LOSS PREVENTION AGENT Tissue (Esophageal biopsy) 08/21/2023 10:30 AM LOSS PREVENTION AGENT Tissue (Gastric/Stomach biopsy) 08/21/2023 10:30 AM LOSS PREVENTION AGENT Narrative PATHOLOGY [facility] ([facility]) - 08/26/2023 8:34 AM LOSS PREVENTION AGENT EPIC results best viewed via link to PDF [facility] Department of Pathology [address] [place] [id number] Note to Patients: This report may contain [...] the details. Final Report Patient Name: ??SARAHY GILL Address: ??[address] [place], [place] [address], ??[place], [place] ?? Gender: ??F : ??1970 (Age: 53) Service: ??Gastro Location: ??[facility] Hospital #: ??[id number] Patient Type: [facility] Accession # ?[id number] Taken: ??08/21/2023 Received: ??08/21/2023 Accessioned: ??08/21/2023 Reported: ??08/26/2023 Physician(s):Dr. Germania Sorto M.D. Diagnosis: A. ??Gastric polyp, biopsy: ? - Consistent with hyperplastic polyp. ? - Negative for intestinal metaplasia and dysplasia. B. ??Esophagus, biopsy: ? - Fragments of benign squamous epithelium. C. ??Stomach, biopsy: ? - Antral type gastric mucosa showing mild chronic inactive gastritis. ? - Negative for intestinal metaplasia and dysplasia. ? - Negative for Helicobacter. Say Martin M.D. Report Electronically Reviewed and Signed Out By ??Say Martin M.D. ??08/26/2023 08:34:31 Specimen(s) Received: A: Gastric polyp biopsy B: Esophageal Biopsy C: Gastric biopsy Microscopic Description: A. Sections show oxyntic type polypoid gastric mucosa with overlying hyperplastic foveolar epithelium compatible with a hyperplastic polyp. ??Additionally, a small panel of immunohistochemical stains was performed with adequate controls. ??A Helicobacter immunohistochemical stain is negative. ??A pancytokeratin AE1/AE3 shows no evidence of an infiltrating carcinoma. B. Sections show fragments of benign squamous epithelium. ??No significant inflammatory infiltrate is seen. ??No fungal elements or viral cytopathic effect is seen. ??There is no evidence of dysplasia. ??No glandular mucosa is present. C. Sections show antral-type gastric mucosa showing mild chronic inactive gastritis. ??No significant acute inflammatory infiltrate is seen. ??There is no evidence of intestinal metaplasia or dysplasia. ??In order to classify the gastritis further, a Helicobacter immunohistochemical stain was performed with adequate controls and is negative. ??Additionally, a pancytokeratin AE1/AE3 shows no evidence of an infiltrating carcinoma. Clinical History: Abdominal pain [R10.9] Dyspepsia [R10.13] EGD Gross Description: The specimen is submitted in three formalin containers labeled SARAHY GILL . A. ??The first container is labeled gastric polyp . ??It is 2 padron 2 mm fragments. ??All in A. B. ??The second container is labeled esophageal biopsy . ??It is 3 padron fragments between 1 and 2 mm. ??All in B. C. ??The third container is labeled gastric . It is 3 padron fragments between 2 and 3 mm. All in C. T.A. Brenda Zuñiga., P.Theresa./Victoria Saravia M.D. REPORT IMAGES AND SCANNED DOCUMENTS, IF INCLUDED, ONLY VIEWABLE IN PDF VERSION OF REPORT The performance characteristics of some immunohistochemical stains, fluorescence in-situ hybridization tests and immunophenotyping by flow cytometry cited in this report (if any) were determined by the Surgical Pathology Department at [facility] as part of an ongoing fiberglass quality technician program and in compliance with federally mandated [...] characteristics determined by the Surgical Pathology Department [facility]. ??It has not been cleared or approved by the U. S. Food and Drug Administration. Note for decalcified specimens: This assay has not been validated on decalcified tissues. Results should be interpreted with caution given the possibility of false negativity on decalcified specimens Germania Sorto MD LAB PATHOLOGY ORDERABLES F inal Result PATHOLOGY [facility]) [address] [place] [address] * EGD (08/21/2023 9:09 AM LOSS PREVENTION AGENT) Anatomical Region Laterality Modality Other Narrative Procedure Note Germania Sorto MD - 08/21/2023 9:09 AM CST [facility] Patient Name: Sarahy Gill Procedure Date: 08/21/2023 9:09 AM Date of : 1970 Admit Type: Outpatient Age: 53 Gender: Female Attending MD: Germania Sorto M.D. Room: [facility] ROOM 1 Note Status: Upper Inspector Override Patient Profile: This is a 53 year old female. Patient has chronic complaints of abdominal pain, nausea vomiting anddry heaving intermittently, intermittent dysphagia.Noted patient smokes marijuana regularly. Recent CT angiogram of the abdomen was unremarkable exceptfor mild thickening at the appendix as well as a small phleboliths. On exam she does have mild tendernessin the right lower quadrant area. Procedure: Upper GI endoscopy Indications: Generalized abdominal pain, Dysphagia, Nausea with vomiting Referring MD: Parmjit Dai M.D. Providers: Ahmad A. Karadaghy, M.D. Impression: - A single small benign gastric polyp. Resected and retrieved. - Chronic gastritis. Biopsied. - Mild esophageal dysmotility otherwise normal esophagus. Biopsied. Dilated. Recommendation: - Await pathology results. - Continue present medications. - I think there is a good element of functional symptoms. If the abdominal pain continued and specially if patient has tenderness in the rightlower quadrant then 1 should consider empiricappendectomy considering the recent CT findings. - Patient will definitely benefit from stopping marijuana use. Medicines: Monitored Anesthesia Care Complications: No immediate [...] noanticoagulant or antiplatelet agents. ASA Grade Assessment: Per anesthesia note and evaluation. After reviewing the risks and benefits, the patient was deemed in satisfactory condition to undergo the procedure. The benefits, risks, and alternatives to theprocedure and sedation were discussed and informed consentwas obtained. The scope was passed under direct vision. The Endoscope GIF-H190 [id number] was introduced through the mouth, and advanced to the second partof duodenum. The upper GI endoscopy was accomplished without difficulty. The patient tolerated the procedure well. Findings: The examined duodenum was normal. A single 4 mm semi-sessile polyp with no stigmata of recent bleedingwas found in the gastric antrum. The polyp was removed with a cold biopsy forceps. Resection and retrieval were complete. Localized mild inflammation characterized by erosions and erythemawas found in the prepyloric region of the stomach. Biopsies were takenwith a cold forceps for histology. Mild irregularity noted at the Z-line at the GE junction which may represent mild reflux esophagitis. No erosions and no ulcers The examined esophagus was normal. Spasm noted in the esophagus body which may represent dysmotility. Biopsies were taken with a coldforceps for histology. The scope was withdrawn. Dilation was performed with a Hills dilator with no resistance at 52 Fr. Electronically signed by Germania Sorto M.D. Germania Sorto M.D. 08/21/2023 11:07:47 AM Number of Addenda: 0 Note Initiated On: 08/21/2023 9:09 AM Procedure Code(s): --- Professional --- 69363, Esophagogastroduodenoscopy, flexible, transoral; with biopsy, single or multiple 79062, Dilation of esophagus, by unguided sound or bougie, single or multiple passes Diagnosis Code(s): --- Professional --- K31.7, Polyp of stomach and duodenum K29.50, Unspecified chronic gastritis without bleeding R10.84, Generalized abdominal pain R13.10, Dysphagia, unspecified R11.2, Nausea with vomiting, unspecified CPT copyright 2020 [employer]. All rights reserved. The codes documented in this report are preliminary and upon fish bait processing supervisor reviewmay be revised to meet current compliance requirements. Recognized by the [employer] for promoting quality in endoscopy Germania Sorto MD ENDOSCOPY PROCEDURES Edite d Result - Final documented in this encounter Visit Diagnoses Diagnosis Abdominal pain Abdominal pain, unspecified site Dyspepsia Dyspepsia and other specified disorders of function of stomach Abdominal pain Abdominal pain, unspecified site Dyspepsia Dyspepsia and other specified disorders of function of stomach Hiatal hernia Diaphragmatic hernia without mention of obstruction or gangrene Gastroesophageal reflux disease, unspecified whether esophagitis present documented in this encounter Admitting Diagnoses Diagnosis Abdominal pain Abdominal pain, unspecified site Dyspepsia Dyspepsia and other specified disorders of function of stomach documented in this encounter Administered Medications Inactive Administered Medications - up to 3 most recent administrations Medication Order MAR Action Action Date Dose Rate Site ondansetron (ZOFRAN) injection 4 mg 4 mg, intravenous, Administer over 2 Minutes, Every 30 min PRN, nausea, vomiting, Starting on Thu08/21/23 at 0903, For 2 doses, Recovery (GI), Indications: Nausea and VomitingIndications:Nausea and Vomiting sodium chloride 0.9% flush 0.5-20 mL 0.5-20 mL, intra-catheter, As needed, line care, Starting on Thu08/21/23 at 0904, Pre-Procedure (GI), Flush volume based on line type and size. Flush before and after each use. sodium chloride 0.9% infusion 30 mL/hr, intravenous, Continuous, Starting on Thu08/21/23 at 0945, Pre-Procedure (GI) Rate/Dose Verify 08/21/2023 10:13 AM LOSS PREVENTION AGENT 30 mL/hr New Bag 08/21/2023 9:36 AM LOSS PREVENTION AGENT 30 mL/hr 30 mL/hr sodium chloride 0.9% infusion 125 mL/hr, intravenous, Continuous, Starting on Thu08/21/23 at 0945, Recovery (GI) documented in this encounter Discontinued Medications Medication Sig Discontinue Reason Start Date End Da te hyoscyamine (LEVSIN) 0.125 mg SL tabletIndications:Urinar y Incontinence Take 1-2 tablets (0.125-0.25 mg total) by mouth 4 (four) times a day as needed for cramping (abdominal pain) 07/22/2023 08/20/2023 documented as of this encounter Active and Recently Administered Medications Times are shown in LOSS PREVENTION AGENT. Continuous Medication Order 08/19/2023 08/20/2023 08/21/2023 sodium chloride 0.9% infusion 30 mL/hr, intravenous, Continuous, Starting on Thu08/21/23 at 0945, Pre-Procedure (GI) 0936 (New Bag - Prov ider: Brook Stanton RN)1013 (Rate/Dose Verify - Provider: Magda Hutton MD)1524 (Due: Stopped) sodium chloride 0.9% infusion 125 mL/hr, intravenous, Continuous, Starting on Thu08/21/23 at 0945, Recovery (GI) 0945 (Due) PRN Medication Order 08/19/2023 08/20/2023 08/21/2023 ondansetron (ZOFRAN) injection 4 mg 4 mg, intravenous, Administer over 2 Minutes, Every 30 min PRN, nausea, vomiting, Starting on Thu08/21/23 at 0903, For 2 doses, Recovery (GI), Indications: Nausea and Vomiting sodium chloride 0.9% flush 0.5-20 mL 0.5-20 mL, intra-catheter, As needed, line care, Starting on Thu08/21/23 at 0904, Pre-Procedure (GI), Flush volume based on line type and size. Flush before and after each use. documented in this encounter Orders Medications Ordered That Rg ht Not Have Been Administered Count Last Ordered Date First Ordered Date ondansetron (ZOFRAN) injection 4 mg 1 08/21 sodium chloride 0.9% flush 0.5-20 mL 1 08/01 sodium chloride 0.9% infusion 1 08/21/2023 Discharge Count Last Ordered Date First Orde red Date DISCHARGE PATIENT 1 08/21/2023 documented in this encounter Care Teams Manager Math Relationship Specialty Start Date End Date Parmjit Dai MD PCP - General 12/31/20 Mere Landa NP Nurse Practitioner 02/07/20 Tico Burton MD Surgeon General Surgery 08/09/21 documented as of this encounter
--- OUTSIDE RECORDS SUMMARY | 2024-08-16 04:33 | XMS_ITS | Encounter Summary ---
Author Organization [facility] Healthcare Address [address] [place] [address] Care Team Providers Care Mergers And Acquisitions Associate Name Role Phone Mere Landa NP Unavailable [phone] Parmjit Dai MD Primary Care Provider [phone] Tico Burton MD Unavailable + [phone] Reason for Visit * Reason Onset Date Comments Schedule EGD 07/21/2023 Encounter Details Date Type Department Care Team (Late st Contact Info) Description 07/21/2023 Telephone [facility] Medical [facility] Gastroenterology at [address] [place] [address] Kalani Barth Schedule EGD Social History Tobacco Use Types Packs/Day Years Used Date Smoking Tobacco: Former Cigarettes 1999 Smokeless Tobacco: Never Comments:off and on Alcohol [...] staff should administer the PHQ-9) 0 08/09/2021 Comments No Sex and Gender Information Value Date Recorded Sex Assigned at Not on file Legal Sex Female 10:06 AM CONCRETE POLISHER Gender Identity Female 06/17/2024 7:02 AM CDT Sexual Orientation Not on file documented as of this encounter Miscellaneous Notes * Telephone Encounter - Kalani Barth - 07/21/2023 11:09 AM CST Patient is scheduled for an EGD with Dr. Sorto on 08/21/23. Instructions mailed to patient and sent via [employer]. Pt on blood thinner (if yes, list medication and reason for taking): Yes - Eliquis Has pt had recent stent placement within the last year: No Pt have pacemaker/defibrillator: No Pt diabetic (if yes, insulin or oral meds): No Pt on any injections for weight loss: No Pt have kidney disease or on dialysis: No Pt on iron: No Mechanical Heart valve: No Instructed pt to call with any medical changes and/or medications/insurance. RETE POLISHER documented in this encounter Plan of Treatment Upcoming Encounters Date Type Department Care Team (Latest Contact Info) Description 09/07/2024 8:30 AM CONCRETE POLISHER Hospital Encounter [facility] [address] [place] [phone] Forest Catherine MD [address] [address] 09/07/2024 8:30 AM CONCRETE POLISHER - 09/07/2024 9:00 AM CONCRETE POLISHER Surgery [facility] [address] [place] [phone] Forest Catherine MD [address] [address] EGD w/Endo Flip & YI placement Scheduled Procedures Name Priority Associated Diagnoses Date/Ti me ESOPHAGOGASTRODUODENOSCOPY Hiatal hernia Gastroesophageal reflux disease, unspecified whether esophagitis present 09/07/2024 8:30 AM CONCRETE POLISHER documented as of this encounter Visit Diagnoses Diagnosis Abdominal pain- Primary Abdominal pain, unspecified site Dyspepsia Dyspepsia and other specified disorders of function of stomach Hiatal hernia Diaphragmatic hernia without mention of obstruction or gangrene Gastroesophageal reflux disease, unspecified whether esophagitis present documented in this encounter Orders Case Request Count Last Ordered Date First Orde red Date CASE REQUEST GI 1 07/21/2023 documented in this encounter Care Teams Mergers And Acquisitions Associate Relationship Specialty Start Date End Date Parmjit Dai MD PCP - General 12/31/20 Mere Landa NP Nurse Practitioner 02/07/20 Tico Burton MD Surgeon General Surgery 08/09/21 documented as of this encounter
--- OUTSIDE RECORDS SUMMARY | 2024-08-16 04:33 | XMS_ITS | Encounter Summary ---
Author Organization [facility] Healthcare Address [address] [place] [address] Care Team Providers Care Wood Furniture Assembler Name Role Phone Mere Landa NP Unavailable [phone] Parmjit Dai MD Primary Care Provider [phone] Tico Burton MD Unavailable [phone] Encounter Details Date Type Department Care Team (Late st Contact Info) Description 08/12/2023 Telephone [facility] Medical Group Gastroenterology at [address] [place] [address] Antonio Hand MA Social History Tobacco Use Types Packs/Day Years Used Date Smoking Tobacco: Former Cigarettes 1 4 - 1999 Smokeless Tobacco: Never Comments:off and on [...] on file Legal Sex Female 10:06 AM HOME PERFORMANCE CONSULTANT Gender Identity Female 06/17/2024 7:02 AM CDT Sexual Orientation Not on file documented as of this encounter Miscellaneous Notes * Telephone Encounter - Richard Bowman NP - 08/13/2023 7:54 AM HOME PERFORMANCE CONSULTANT Okay- thank you for letting me know! PERFORMANCE CONSULTANT * Telephone Encounter - Antonio Hand MA - 08/12/2023 2:19 PM HOME PERFORMANCE CONSULTANT Patient called stating that she was supposed to have a gastric emptying study done today & patient had to reschedule due to her sensitivity to eggs. Patients study will now be done on September 15 with oatmeal instead of eggs. Patient wanted me to let you know. PERFORMANCE CONSULTANT documented in this encounter Plan of Treatment Upcoming Encounters Date Type Department Care Team (Latest Contact Info) Description 09/07/2024 8:30 AM HOME PERFORMANCE CONSULTANT Hospital Encounter [facility] [address] [place] [phone] Forest Catherine MD [address] [address] 09/07/2024 8:30 AM HOME PERFORMANCE CONSULTANT - 09/07/2024 9:00 AM HOME PERFORMANCE CONSULTANT Surgery [facility] [address] [place] [phone] Forest Catherine MD [address] [address] EGD w/Endo Flip & YI placement Scheduled Procedures Name Priority Associated Diagnoses Date/Ti me ESOPHAGOGASTRODUODENOSCOPY Hiatal hernia Gastroesophageal reflux disease, unspecified whether esophagitis present 09/07/2024 8:30 AM HOME PERFORMANCE CONSULTANT documented as of this encounter Visit Diagnoses Not on filedocumented in this encounter Care Teams Wood Furniture Assembler Relationship Specialty Start Date End Date Parmjit Dai MD PCP - General 12/31/20 Mere Landa NP Nurse Practitioner 02/07/20 Tico Burton MD Surgeon General Surgery 08/09/21 documented as of this encounter
--- OUTSIDE RECORDS SUMMARY | 2024-08-16 04:33 | XMS_ITS | Encounter Summary ---
Author Organization [facility] Healthcare Address [address] [place] [address] Care Team Providers Care Care Administrative Tech Name Role Phone Mere Landa NP Unavailable [phone] Parmjit Dai MD Primary Care Provider [phone] Tico Burton MD Unavailable [phone] Reason for Visit * Reason Comments Follow-up Patient is here toda y for a ER follow up for vomiting. Patient reports abdominal cramps with nausea. Abdominal Cramping Nausea Encounter Details Date Type Department Care Team (Latest Contact Info) Description 06/08/2023 1:30 PM CDT Office Visit [facility] Medical [facility] Gastroenterology at [address] [place] [address] Richard Bowman NP [address] [place] [address] [address] [place] [address] Irritable bowel syndrome with both constipation and diarrhea (Primary Dx); Chronic nausea; Gastroesophageal reflux disease with esophagitis without hemorrhage; Chronic superficial gastritis without bleeding; History of repair of hiatal hernia; History of colonoscopy with polypectomy; Leukocytosis, unspecified type Social History Tobacco Use Types Packs/Day Years Used Date Smoking Tobacco: Former Cigarettes 1 984 - 1999 Smokeless Tobacco: Never Tobacco Cessation:Counseling Given: Not [...] file Legal Sex Female 10:06 AM FOOD CLERK Gender Identity Female 06/17/2024 7:02 AM CDT Sexual Orientation Not on file documented as of this encounter Last Filed Vital Signs Vital Sign Reading Time Taken Comments Blood Pressure 108/72 06/08/2023 1:25 PM CDT Pulse 68 06/08/2023 1:25 PM CDT Temperature - - Respiratory Rate - - Oxygen Saturation 99% 06/08/2023 1:25 PM CDT Inhaled Oxygen Concentration - - Weight 64 kg (141 lb 1.6 oz) 06/08/2023 1:25 PM CDT Height 162.6 cm (5' 4 ) 06/08/2023 1:25 PM CDT Body Mass Index 24.22 06/08/2023 1:25 PM CDT documented in this encounter Patient Instructions * Patient Instructions* Richard Bowman NP - 06/08/2023 1:30 PM CDT Get Oil of Oregano capsules by [employer] on and take 1 pill 3 times daily for 10 days, off 20-30 days, then repeat. Continue this pattern indefinitely as it is a natural antibiotic that will help keep your gut bacteria balanced... Continue Amitiza/lubiprostone one pill twice daily for chronic constipation, but until you are having better bowel movements, take two senna/docusate combo pills nightly. On bad days you can take up to two twice daily. Cut back on it and use a few times weekly, if it ends up causing you problematicdiarrhea. For more severely problematic constipation issues, you can take up to two bisacodyl/Dulcolax tabs, but on the days that you take this, skip the senna/docusate. Continue Gas-X/simethicone up to 4 times daily. Continue to try to identify food triggers that you need to avoid. As heartburn and reflux get under better control, try to reduce your pantoprazole/Protonix to everyother day dosing as this will help her bowel issues become less problematic over time. Continue to reserve the Bentyl for cramping unrelieved by Gas-X since it can contribute to constipation by slowing GI transit. documented in this encounter Progress Notes * Richard Bowman NP - 06/08/2023 1:30 PM CDT Images from the original note were not included. PATIENT DEMOGRAPHICS Sarahy Gill is a 53 y.o. White female. PATIENT'S CARE TEAM Patient Care Team: Parmjit Dai MD as PCP - General Mere Landa NP (Nurse Practitioner) Tico Burton MD as Surgeon (General Surgery) CHIEF COMPLAINT Chief Complaint Patient presents with Follow-up Patient is here today for a ER follow up for vomiting. Patient reports abdominal cramps with nausea. Abdominal Cramping Nausea HPI/ROS New or existing patient visit: Existing. Referring Provider: Parmjit Dai MD Nkechi is here today for an ER follow up r/t her chronic GI issues. She has IBS that is constipation predominant, but definitely has a component of diarrhea and SIBO as well as chronic nausea. She also has GERD/gastritis and history of hiatal hernia repair. She was recently seen in the ER for her symptoms at [facility] on 05/23 with problematic abdominal pain and diarrhea. She was diagnosed as having likely food poisoning/gastroenteritis and dehydration. White blood cell count was 17.2. Hemoglobin was 10.7. Platelet count 376. Creatinine was normal. Sodium and other electrolytes were normal. No significant interventions beyond Zofran and morphine were provided. She was advised to follow-up with GI. She sent me a message that her symptoms were worsening and I sent her a course of rifaximin to cover for SIBO, which she completed a few days ago and is feeling better, but constipation has been a little more problematic post antibiotics. She continues on Amitiza, but is not doing any Mitzi Colace or MiraLax. She has Zofran to use as needed for the na usea, but it is improving. She uses Gas-X as needed for cramping and bloating. She uses Bentyl as needed for the cramping that is significant and unrelieved by the Gas-X, but she knows to use this sparingly since it can contribute to constipation/slow GI transit. Heartburn and reflux are well controlled as long as she takes Protonix 40 mg daily and avoids red sauce/spicy foods. She has Pepcid to use b.i.d. p.r.n.. Sometimes she takes it more routinely when her GERD symptoms are flare up and other times she uses it just as needed. She is chronically anticoagulated on Eliquis. No NSAID or aspirin use. Former smoker. Vapes nicotine. Denies alcohol and drug use other than occasional marijuana use. No recent vomiting. * Will keep in mind that at one point we tried doxycycline to cover for SIBO and it did not help, but the Rifaximin did... EGD in early showed mild chronic inactive gastritis and reflux esophagitis changes. She had a colonoscopy in October. Small tubular adenoma removed. Diverticulosis noted in the sigmoid colon that was mild in nature. Random colon biopsy was negative for microscopic colitis. Small internal hemorrhoids noted. Advised to repeat in four years. Celiac serology normal. She does have a history of bacterial colitis earlier this year, but no concerns for an active colitis issue. She has not been havingany diarrhea, melena, or hematochezia. Gallbladder previously surgically removed. Celiac screening earlier this year was negative. No NSAID or aspirin use. Chronically anticoagulated on Eliquis. Former smoker. Vapes nicotine. Denies alcohol and drug use other than occasional marijuana use. PHYSICAL EXAM BP 108/72 (BP Location: Left arm, Patient Position: Sitting) Pulse 68 Ht 162.6 cm (5' 4 ) Wt 64 kg (141 lb 1.6 oz) SpO2 99% BMI 24.22 kg/m?? No LMP recorded. Patient is postmenopausal. [...] Psychiatric: Mood/behavioral normal. TESTS/LABS/PROCEDURES (not all inclusive) 01/21/2023-fecal elastase level normal at 374. 10/29/2022-Colonoscopy [...] both constipation and diarrhea (primary encounter diagnosis) Chronic symptomatology. Appears to have a SIBO component given her positive response to rifaximin for the diarrhea and bloating/nausea, but it has worsened her chronic underlying constipation short term. She was provided the following instructions/plan to follow after today's visit: -Get Oil of Oregano capsules by Herbal [employer] on and take 1 pill 3 times daily for 10 days,off 20-30 days, then repeat. Continue this pattern indefinitely as it is a natural antibiotic that will help keep your gut bacteria balanced... -Continue Amitiza/lubiprostone one pill twice daily for chronic constipation, but until you are having better bowel movements, take two senna/docusate combo pills nightly. On bad days you can take upto two twice daily. Cut back on it and use a few times weekly, if it ends up causing you problematic diarrhea. -For more severely problematic constipation issues, you can take up to two bisacodyl/Dulcolax tabs,but on the days that you take this, skip the senna/docusate. -Continue Gas-X/simethicone up to 4 times daily. -Continue to try to identify food triggers that you need to avoid. -As heartburn and reflux get under better control, try to reduce your pantoprazole/Protonix to every other day dosing as this will help her bowel issues become less problematic over time. -Continue to reserve the Bentyl for cramping unrelieved by Gas-X since it can contribute to constipation by slowing GI transit. (R11.0) Chronic nausea Chronic, intermittent issue that I believe is related to excessive gas production and her IBS more so than anything else. Will that is where we will place our focus. See discussion above. She can continue Zofran as needed. (K21.00) Gastroesophageal reflux disease with esophagitis without hemorrhage (K29.30) Chronic superficial gastritis without bleeding (Z98.890, Z87.19) History of repair of hiatal hernia Chronic symptomatology is well controlled on Protonix 40 mg daily and b.i.d. p.r.n. famotidine. I advised her that as she feels better over time she should try to reduce her Protonix to every other day dosing as this will help with her bowel habits long-term. Reminded to moderate her diet, avoid triggers, avoid NSAIDs, and avoid alcohol. Risks/benefits/side effects of long-term PPI use were discussed with patient. (Z98.890, Z86.010) History of colonoscopy with polypectomy On a four year surveillance schedule and needs repeat colonoscopy in October of 2026. (D72.829) Leukocytosis, unspecified type White blood cell count mildly elevated at 17 while in the ER on 05/23. Diagnosed as likely having food poisoning versus viral gastroenteritis at that time. Will reassess to make sure it has normalized. Orders Placed This Encounter CBC with auto differential Standing Status: Future Number of Occurrences: 1 Standing Expiration Date: 06/08/2024 Return in about 3 months (around 09/08/2023) for IBS/GERD. Medication(s) and/or immunization(s) uses and side effects briefly discussed. Patient verbalizes understanding of all instructions provided today and agrees with plan. Total time spent on the date of the [id number] encounter, including both gsqv-ex-mthj time (including time spent providing education) and bzh-uwfz-in-face time (pre-charting, reviewing chart, post-charting) was 40 minutes. This note is dictated and transcribed by [email or web address]. Mechanical Maintenance Engineer variances may occur. Despite proofreading, typographical errors may occur. My collaborating physician is Dr. Germania Sorto-Gastroenterology. Richard Bowman NP documented in this encounter Plan of Treatment Upcoming Encounters Date Type Department Care Team (Latest Contact Info) Description 09/07/2024 8:30 AM FOOD CLERK Hospital Encounter [facility] [address] [place] [phone] Forset Catherine MD [address] [address] 09/07/2024 8:30 AM FOOD CLERK - 09/07/2024 9:00 AM FOOD CLERK Surgery [facility] [address] [place] [phone] Forest Catherine MD [address] [address] EGD w/Endo Flip & YI placement Scheduled Procedures Name Priority Associated Diagnoses Date/Ti me ESOPHAGOGASTRODUODENOSCOPY Hiatal hernia Gastroesophageal reflux disease, unspecified whether esophagitis present 09/07/2024 8:30 AM FOOD CLERK documented as of this encounter Results * (ABNORMAL) CBC with auto differential (06/08/2023 2:14 PM CDT) WBC 6.7 3.8 - 9.9 K/cumm [facility] Hgb 9.3(L) 11.9 - 15.5 g/dL [facility] Hct 30.5(L) 35.6 - 45.5 % [facility] Plt 372 150 - 400 K/cumm [facility] MPV 10.6 9.1 - 12.3 fL [facility] RBC 3.66(L) 3.90 - 5.20 M/cumm [facility] Comment: Interpretive Data A reference range for this assay has not been established for patients with an unknown legal sex. Please refer to the laboratory test catalog for established sex-specific reference intervals. Current interpretive data was last revised on 2023. MCV 83.3 81.3 - 96.4 fL [facility] MCH 25.4(L) 27.1 - 33.3 pg [facility] MCHC 30.5(L) 32.3 - 35.7 g/dL [facility] RDW CV 15.5(H) 11.1 - 14.9 % [facility] RDW SD 47.6 35.7 - 48.1 fL [facility] NRBC abs 0.00 0.00 - 0.01 K/cumm [facility] Blood 06/08/2023 2:14 PM CDT 06/08/2023 3:33 PM CDT Richard Bowman PRECISION ASSEMBLER LAB BLOOD ORDERABLE S Final Result [facility] Department [place] [address] documented in this encounter Visit Diagnoses Diagnosis Irritable bowel syndrome with both constipation and diarrhea- Primary Chronic nausea Nausea alone Gastroesophageal reflux disease with esophagitis without hemorrhage Chronic superficial gastritis without bleeding History of repair of hiatal hernia History of colonoscopy with polypectomy Other postprocedural status Leukocytosis, unspecified type Hiatal hernia Diaphragmatic hernia without mention of obstruction or gangrene Gastroesophageal reflux disease, unspecified whether esophagitis present documented in this encounter Care Teams Care Administrative Tech Relationship Specialty Start Date End Date Parmjit Dai MD PCP - General 12/31/20 Mere Landa NP Nurse Practitioner 02/07/20 Tico Burton MD Surgeon General Surgery 08/09/21 documented as of this encounter
--- OUTSIDE RECORDS SUMMARY | 2024-08-16 04:33 | XMS_ITS | Encounter Summary ---
Author Organization [facility] Healthcare Address [address] [place] [address] Care Team Providers Care [employer] Name Role Phone Mere Landa NP Unavailable [phone] Parmjit Dai MD Primary Care Provider [phone] Tico Burton MD Unavailable [phone] Reason for Visit * Auth/Cert Specialty Diagnoses / Procedures Referred By Contac t Referred To Contact Diagnoses Colitis Colitis [K52.9] Procedures ND COLONOSCOPY FLX DX W/COLLJ SPEC WHEN PFRMD COLONOSCOPY Referral ID Status Reason Start Date Expiration Date Visits Re quested Visits Authorized [id number] 1 1 Encounter Details Date Type Department Care Team (Late st Contact Info) Description 10/29/2022 9:00 AM USED CAR LOT ATTENDANT - 10/29/2022 9:30 AM USED CAR LOT ATTENDANT Surgery [facility] [address] [place] [address] Germania Sorto MD [address] [place] [id number] COLON BIOPSY Surgery Details Date/Time Status Location OR Service Patient Class Case Class Case Type Trauma Case? 10/29/2022 9:00 AM Posted [facility] GI 01 Gastroenterology Outpatient Elective Panel 1 Procedure LRB Anes Op Region Wound Class Comments COLON BIOPSY N/A Monitor Anesthesia Care Surgeon Surgeon Role Service Panel Geramnia Sorto MD Primary Gastroenterology 1 documented in [...] you have a drink containing alcohol? Never 10/29/2022 Q2: How many drinks containi ng alcohol do you have on a typical day when you are drinking? Patient does not drink Q3: How often do you have si x or more drinks on one occasion? Never 10/29/2022 PHQ-2 Answer Date Recorded PHQ-2 Total Score (If total score is 3 or more points, staff should administer the PHQ-9) 0 08/09/2021 Comments No Sex and Gender Information Value Date Recorded Sex Assigned at Not on file Legal Sex Female 10:06 AM USED CAR LOT ATTENDANT Gender Identity Female 06/17/2024 7:02 AM CDT Sexual Orientation Not on file documented as of this encounter Last Filed Vital Signs Vital Sign Reading Time Taken Comments Blood Pressure 111/74 10/29/2022 8:16 AM USED CAR LOT ATTENDANT Pulse 63 10/29/2022 8:16 AM USED CAR LOT ATTENDANT Temperature 36.6 ??C (97.9 ??F) 10/29/2022 8:16 AM CS T Respiratory Rate 20 10/29/2022 8:16 AM USED CAR LOT ATTENDANT Oxygen Saturation 100% 10/29/2022 8:16 AM USED CAR LOT ATTENDANT Inhaled Oxygen Concentration - - Weight 63.5 kg (140 lb) 10/29/2022 8:16 AM USED CAR LOT ATTENDANT Height 162.6 cm (5' 4 ) 10/29/2022 8:16 AM USED CAR LOT ATTENDANT Body Mass Index 24.03 10/29/2022 8:16 AM USED CAR LOT ATTENDANT documented in this encounter Medications at Time of Discharge apixaban (ELIQUIS) 5 mg tablet Take 1 tablet (5 mg total) by mouth 2 (two) times a day atorvastatin (LIPITOR) 40 mg tabletIndications:h yperlipidemia Take 1 tablet (40 mg total) by mouth daily 30 tablet 1 08/13/2021 flecainide (TAMBOCOR) 100 mg tablet TAKE 1 TABLET BY MOUTH TWICE DAILY. START TAKING STEVE 11/7 07/08/2022 metoprolol XL (TOPROL-XL) 25 mg extended release tablet Take 1 tablet (25 mg total) by mouth daily dicyclomine (BENTYL) 10 mg capsule Take 2 capsules (20 mg total) by mouth 4 (four) times a day as needed (abdominal pain/cramping) 240 capsule 5 09/24/2021 11/25/[address] (CYMBALTA) 60 mg capsule Take 1 capsule (60 mg total) by mouth daily 10/01/2022 04/17/20 23 famotidine (PEPCID) 20 mg tablet Take 1 tablet (20 mg total) by mouth daily as needed for indigestion or heartburn 90 tablet 3 01/15/2022 02/11/20 23 hydrOXYzine (ATARAX) 50 mg tablet Take 1 tablet (50 mg total) by mouth 3 (three) times a day 10/01/2022 04/17/20 23 lubiprostone (AMITIZA) 24 mcg capsule TAKE 1 CAPSULE(24 MCG) BY MOUTH TWICE DAILY WITH MEALS 60 capsule 5 06/05/2022 04/17/20 23 nortriptyline (PAMELOR) 25 mg capsule Take 1 capsule (25 mg total) by mouth nightly 30 capsule 11 12/20/2021 04/17/20 23 ondansetron (ZOFRAN) 4 mg tablet Take 1 tablet (4 mg total) by mouth every 6 (six) hours 30 tablet 5 09/24/2021 12/02/19 23 ondansetron ODT (ZOFRAN-ODT) 8 mg disintegrating tablet Take 1 tablet (8 mg total) by mouth every 6 (six) hours as needed for nausea or vomiting 20 tablet 3 09/04/2022 04/17/[address] (PROTONIX) 40 mg EC tablet Take 1 tablet (40 mg total) by mouth daily 90 tablet 3 09/24/2021 01/16/20 23 SUMAtriptan (IMITREX) 50 mg tabletIndications:M igraine Take 1 tablet (50 mg total) by mouth once as needed for migraine May repeat dose once in 2 hours if no relief. Do not exceed 2 doses in 24 hours. 11/13/19 24 documented as of this encounter Discharge Disposition Disposition Code Departure Means Destination Comment s Discharge to home or self care documented in this encounter H&P Notes * Germania Sorto MD - 10/29/2022 9:34 AM CST History and Physical Date of visit: 10/29/2022 Subjective: Patient is a 52 y.o. female presented for evaluation for acute colitis. Past Medical History: Diagnosis Date A-fib (CMS/HCC) ([facility]) Anxiety Arthritis Bipolar affect, depressed (CMS/HCC) (HCC) Colon polyp Cyclic vomiting syndrome Depression Headache, tension-type Hypertension Hypotension IBS (irritable bowel syndrome) Migraine Stroke (CMS/HCC) ([facility]) Weight loss Past Surgical History: Procedure Laterality Date ABDOMINAL SURGERY 2012 hiatel hernia repair ARTHROSCOPIC SURGERY Left 1984,1994,2001 knee SECTION 1992 CHOLECYSTECTOMY COLONOSCOPY 1-2yrs ago COLONOSCOPY 10/29/2022 ENDOMETRIAL ABLATION HERNIA REPAIR POLYPECTOMY TUBAL LIGATION Medications Prior to Admission Medication Sig Dispense Refill Last Dose atorvastatin (LIPITOR) 40 mg tablet Take 1 tablet (40 mg total) by mouth daily 30 tablet 1 10/28/2022 dicyclomine (BENTYL) 10 mg capsule Take 2 capsules (20 mg total) by mouth 4 (four) times a day as needed (abdominal pain/cramping) 240 capsule 5 Past Week famotidine (PEPCID) 20 mg tablet Take 1 tablet (20 mg total) by mouth daily as needed for indigestion or heartburn 90 tablet 3 10/28/2022 flecainide (TAMBOCOR) 100 mg tablet TAKE 1 TABLET BY MOUTH TWICE DAILY. START TAKING Saturday 07/0710/28/2022 lubiprostone (AMITIZA) 24 mcg capsule TAKE 1 CAPSULE(24 MCG) BY MOUTH TWICE DAILY WITH MEALS 60 capsule 5 Past Week metoprolol XL (TOPROL-XL) 25 mg extended release tablet Take 25 mg by mouth daily 10/28/2022 nortriptyline (PAMELOR) 25 mg capsule Take 1 capsule (25 mg total) by mouth nightly 30 capsule 11 Past Week ondansetron (ZOFRAN) 4 mg tablet Take 1 tablet (4 mg total) by mouth every 6 (six) hours 30 tablet 5 Past Week ondansetron ODT (ZOFRAN-ODT) 8 mg disintegrating tablet Take 1 tablet (8 mg total) by mouth every 6(six) hours as needed for nausea or vomiting 20 tablet 3 Past Week pantoprazole DR (PROTONIX) 40 mg EC tablet Take 1 tablet (40 mg total) by mouth daily 90 tablet 3 10/28/2022 apixaban (ELIQUIS) 5 mg tablet Take 5 mg by mouth 2 (two) times a day 10/23/2022 ciprofloxacin (CIPRO) 500 mg tablet Take 1 tablet (500 mg total) by mouth 2 (two) times a day 14 tablet 0 escitalopram (LEXAPRO) 10 mg tablet Take 10 mg by mouth daily SUMAtriptan (IMITREX) 50 mg tablet Take 50 mg by mouth once as needed for migraine May repeat dose once in 2 hours if no relief. Do not exceed 2 doses in 24 hours. More than a month traMADoL (ULTRAM) 50 mg tablet Take 1 tablet (50 mg total) by mouth every 6 (six) hours as needed for pain for up to 15 doses 15 tablet 0 Allergies Allergen Reactions Compazine [Prochlorperazine] Other (See comments) made me feel weird, odd also agitation Phenergan [Promethazine] Agitation Reglan [Metoclopramide] Other (See comments) Had TIA after trying. Zithromax [Azithromycin] Stomach upset Social History Tobacco Use Smoking status: Former Types: Cigarettes Start date: 1983 Quit date: 1999 Years since quittin. Smokeless tobacco: Never Tobacco comments: off and on Substance and Sexual Activity Drug use: Yes Types: Marijuana Comment: occasionally last used 10/28/2022 Sexual activity: Defer control/protection: Post-menopausal Alcohol Use: Not At Risk Frequency of Alcohol Consumption: Never Average Number [...] no edema. Skin: no rash. GI IMPRESSION: Colitis, follow up evaluation GI PLAN/RECOMMENDATIONS: Colonoscopy Germania Sorto MD CAR LOT ATTENDANT documented in this encounter Procedure Notes * Germania Sorto MD - 10/29/2022 7:59 AM CSTAssociated Order(s): COLONOSCOPY [facility] Patient Name: Lukasz Gill Procedure Date: 10/29/2022 7:59 AM Date of : 1970 Admit Type: Outpatient Age: 52 Gender: Female Attending MD: Germania Sorto M.D. Room: [facility] ENDOSCOPY ROOM 1 Note Status: Finalized Patient Profile: This is a 52 year old female. Patient was recently hospitalized with acute colitis. Colonoscopy for follow-up evaluation. No family history of colon cancer Procedure: Colonoscopy Indications: Last colonoscopy within the past 3 years, Follow-up of colitis Referring MD: Parmjit Dai M.D. Providers: Germania Sorto M.D. Impression: - One 5 mm polyp in the transverse colon, removed with a jumbo cold forceps. Resected and retrieved. - Mild diverticulosis in the sigmoid colon. - Random colon biopsy performed. No inflammatory changes noted in the colon at this time. - Internal hemorrhoids. Recommendation: - Await pathology results. - Repeat colonoscopy in 4 years for screening purposes. - Continue present medications. Medicines: Monitored Anesthesia [...] anticoagulant or antiplatelet agents. ASA Grade Assessment: II - A patient with mild systemic disease. After reviewing the risks and benefits, the patient was deemed in satisfactory condition to undergo the procedure. The benefits, risks and alternatives of the procedure and sedation were discussed and informed consent was obtained. All questions were answered. Please refer to the signed informed consent document in the medical record. The bowel preparation used was Miralax and bisacodyl tablets via split dose instruction. The scope was passed under direct vision. The Pediatric Colonoscope PCF-H190L [id number] was introduced through the anus and advanced to the the cecum, identified by appendiceal orifice and ileocecal valve. The quality of the bowel preparation was fair. Bowel prep was administered using a split dose. Findings: The perianal and digital rectal examinations were normal. The cecum appeared normal. A 5 mm polyp was found in the transverse colon. The polyp was sessile. The polyp was removed with a jumbo cold forceps. Resection and retrieval were complete. The colon (entire examined portion) appeared normal otherwise overall. No inflammatory changes noted. Few small scattered diverticuli noted in the left side of the colon. Random biopsies were taken with a cold forceps for histology. Internal hemorrhoids were found during retroflexion. The hemorrhoids were small. Electronically signed by Germania Sorto M.D. Germania Sorto M.D. 10/29/2022 9:46:43 AM Number of Addenda: 0 Note Initiated On: 10/29/2022 7:59 AM Procedure Code(s): --- Professional --- 76410, Colonoscopy, flexible; with biopsy, single or multiple Diagnosis Code(s): --- Professional --- K64.8, Other hemorrhoids D12.3, Benign neoplasm of transverse colon (hepatic flexure or splenic flexure) K52.9, Noninfective gastroenteritis and colitis, unspecified CPT copyright 2020 [employer]. All rights reserved. The codes documented in this report are preliminary and upon fine wire drawer review may be revised to meet current compliance requirements. Recognized by the [place] [employer] for promoting quality in endoscopy CAR LOT ATTENDANT documented in this encounter Miscellaneous Notes * Perioperative Nursing Note - Adryan Benavides RN - 10/29/2022 9:57 AM USED CAR LOT ATTENDANT Dr Sorto spoke with the patient about the procedure. Patient is to have a repeat colonoscopy in4 years. CAR LOT ATTENDANT documented in this encounter Plan of Treatment Upcoming Encounters Date Type Department Care Team (Latest Contact Info) Description 09/07/2024 8:30 AM USED CAR LOT ATTENDANT Hospital Encounter [facility] [address] [place] [phone] Forest Catherine MD [address] [address] 09/07/2024 8:30 AM USED CAR LOT ATTENDANT - 09/07/2024 9:00 AM USED CAR LOT ATTENDANT Surgery [facility] [address] [place] [phone] Forest Catherine MD [address] [address] EGD w/Endo Flip & YI placement Scheduled Procedures Name Priority Associated Diagnoses Date/Ti me ESOPHAGOGASTRODUODENOSCOPY Hiatal hernia Gastroesophageal reflux disease, unspecified whether esophagitis present 09/07/2024 8:30 AM USED CAR LOT ATTENDANT documented as of this encounter Procedures Procedure Name Priority Date/Time Associated Diagnosis Comments SURGICAL PATHOLOGY STAT 10/29/2022 1: 04 PM USED CAR LOT ATTENDANT Colitis COLON BIOPSY 10/29/2022 9:01 AM USED CAR LOT ATTENDANT Colitis COLONOSCOPY 10/29/2022 7:59 AM USED CAR LOT ATTENDANT documented in this encounter Results * Surgical pathology (10/29/2022 1:04 PM USED CAR LOT ATTENDANT) Tissue (Polyp(s), colon/colorectal, esophageal, gastric) 10/29/2022 9:32 AM USED CAR LOT ATTENDANT Tissue (Colon, Biopsy) 10/29/2022 9:32 AM USED CAR LOT ATTENDANT Narrative PATHOLOGY [facility] [facility] - 10/30/2022 10:44 AM USED CAR LOT ATTENDANT EPIC results best viewed via link to PDF [facility] Department of Pathology [address] [place] [address] Note to Patients: This report may contain [...] explain the details. Final Report Patient Name: ??LUKASZ GILL Address: ??[address] [place] [address], ??[place], [place] ?? Gender: ??F : ??1970 (Age: 52) Service: ??Gastro Location: ??[facility] Hospital #: ??[id number] Patient Type: ??[facility] Accession # ?[id number] Taken: ??10/29/2022 Received: ??10/29/2022 Accessioned: ??10/29/2022 Reported: ??10/30/2022 Physician(s):Dr. Germania Sorto M.D. Diagnosis: A. ??Colon, transverse, biopsy: ? - Tubular adenoma. ? - No evidence of high-grade dysplasia or malignancy. B. ??Colon, random, biopsy: ? - Colonic mucosa with no significant histopathologic abnormalities. Sterling Collier MD Report Electronically Reviewed and Signed Out By ??Sterling Collier MD ??10/30/2022 10:44:07 Specimen(s) Received: A: Tranverse colon polyp B: Random colon biopsy Microscopic Description: A. Microscopic examination shows three polypoid fragments of colonic mucosa, one of which shows adenomatous mucosal changes consistent with a tubular adenoma. ??There is no evidence of high-grade dysplasia or malignancy. B. Microscopic examination shows fragments of colonic mucosa with no significant histopathologic abnormalities. ??There is no significant active inflammation. ??There is no significant intraepithelial lymphocytosis nor is there thickening of the subepithelial collagen layer. ??There is no evidence of dysplasia or malignancy. Clinical History: Colitis. ??Colonoscopy. ?? Gross Description: The specimen is submitted in two formalin containers labeled LUKASZ LYNROSA . A. ??The first container is labeled transverse colon polyp . It is 3 padron 2 mm fragments. All in A. B. ??The second container is labeled random . It is multiple padron 2-4 mm fragments. All in B. T.A. Brenda Zuñiga., P.A./Mitch Alexander M.D. REPORT IMAGES AND SCANNED DOCUMENTS, IF INCLUDED, ONLY VIEWABLE IN PDF VERSION OF REPORT The performance characteristics of some immunohistochemical stains, fluorescence in-situ hybridization tests and immunophenotyping by flow cytometry cited in this report (if any) were determined by the Surgical Pathology Department at [facility] as part of an ongoing water quality manager program and in compliance with federally mandated [...] characteristics determined by the Surgical Pathology Department [facility]. ??It has not been cleared or approved by the U. S. Food and Drug Administration. Note for decalcified specimens: This assay has not been validated on decalcified tissues. Results should be interpreted with caution given the possibility of false negativity on decalcified specimens us Germania Sorto MD LAB PATHOLOGY ORDERABLES F inal Result PATHOLOGY [facility] [address] [place] [address] * COLONOSCOPY (10/29/2022 7:59 AM USED CAR LOT ATTENDANT) Anatomical Region Laterality Modality Other Narrative Procedure Note Germania Sorto MD - 10/29/2022 7:59 AM CST [facility] Patient Name: Lukasz Gill Procedure Date: 10/29/2022 7:59 AM Date of : 1970 Admit Type: Outpatient Age: 52 Gender: Female Attending MD: Germania Sorto M.D. Room: [facility] ENDOSCOPY ROOM 1 Note Status: Finalized Patient Profile: [...] under direct vision. The Pediatric Colonoscope PCF-H190L [id number] was introducedthrough the anus and advanced to [...] 7:59 AM Procedure Code(s): --- Professional --- 46289, Colonoscopy, flexible; with biopsy, single or multiple Diagnosis Code(s): --- Professional --- K64.8, Other hemorrhoids D12.3, Benign neoplasm of transverse colon (hepatic flexure orsplenic flexure) K52.9, Noninfective gastroenteritis and colitis, unspecified CPT copyright 2020 [employer]. All rights reserved. The codes documented in this report are preliminary and upon fine wire drawer reviewmay be revised to meet current compliance requirements. Recognized by the [place] [employer] for promoting quality in endoscopy Germania Sorto MD ENDOSCOPY PROCEDURES Final Result documented in this encounter Visit Diagnoses Diagnosis Colitis- Primary Other and unspecified noninfectious gastroenteritis and colitis Colitis Other and unspecified noninfectious gastroenteritis and colitis Hiatal hernia Diaphragmatic hernia without mention of obstruction or gangrene Gastroesophageal reflux disease, unspecified whether esophagitis present documented in this encounter Admitting Diagnoses Diagnosis Colitis Other and unspecified noninfectious gastroenteritis and colitis documented in this encounter Administered Medications Inactive Administered Medications - up to 3 most recent administrations Medication Order MAR Action Action Date Dose Rate Site ondansetron (ZOFRAN) injection 4 mg 4 mg, intravenous, Administer over 2 Minutes, Every 30 min PRN, nausea, vomiting, Starting on Thu10/29/22 at 0806, For 2 doses, Recovery (GI), Indications: Nausea and VomitingIndications:Nausea and Vomiting sodium chloride 0.9% flush 0.5-20 mL 0.5-20 mL, intra-catheter, Every 8 hours scheduled, First dose on Thu10/29/22 at 0845, Pre-Procedure (GI), Flush volume based on line type and size. sodium chloride 0.9% flush 0.5-20 mL 0.5-20 mL, intra-catheter, As needed, line care, Starting on Thu10/29/22 at 0807, Pre-Procedure (GI), Flush volume based on line type and size. Flush before and after each use. sodium chloride 0.9% infusion 30 mL/hr, intravenous, Continuous, Starting on Thu10/29/22 at 0845, Pre-Procedure (GI) Restarted 10/29/2022 9:18 AM USED CAR LOT ATTENDANT Rate/Dose Verify 10/29/2022 9:16 AM USED CAR LOT ATTENDANT 30 mL/h r New Bag 10/29/2022 8:43 AM USED CAR LOT ATTENDANT 30 mL/hr 30 mL/hr sodium chloride 0.9% infusion 125 mL/hr, intravenous, Continuous, Starting on Thu10/29/22 at 0845, Recovery (GI) documented in this encounter Discontinued Medications Medication Sig Discontinue Reason Start Date End Da te escitalopram (LEXAPRO) 10 mg tabletIndications:Anxi ety with Depression Take 10 mg by mouth daily Stop Taking at Discharge 10/29/2022 ciprofloxacin (CIPRO) 500 mg tabletIndications:Abdo brigido/Pelvic Infection Take 1 tablet (500 mg total) by mouth 2 (two) times a day Stop Taking at Discharge 09/04/2022 10/29/2022 traMADoL (ULTRAM) 50 mg tablet Take 1 tablet (50 mg total) by mouth every 6 (six) hours as needed for pain for up to 15 doses Stop Taking at Discharge 09/04/2022 10/29/2022 documented as of this encounter Active and Recently Administered Medications Times are shown in USED CAR LOT ATTENDANT. Scheduled Medication Order 10/27/2022 10/28/2022 10/29/2022 sodium chloride 0.9% flush 0.5-20 mL 0.5-20 mL, intra-catheter, Every 8 hours scheduled, First dose on Thu10/29/22 at 0845, Pre-Procedure (GI), Flush volume based on line type and size. 0845 (Due) Continuous Medication Order 10/27/2022 10/28/2022 10/29/2022 sodium chloride 0.9% infusion 30 mL/hr, intravenous, Continuous, Starting on Thu10/29/22 at 0845, Pre-Procedure (GI) 0843 (New Bag - Prov ider: Adryan Benavides RN)0916 (Rate/Dose Verify - Provider: Travis Shahid MD)0917 (Paused - Provider: Travis Shahid MD - Comment: Switch to gravity)0918 (Restarted - Provider: Travis Shahid MD)0931 (Anesthesia Volume Adjustment - Provider: Travis Shahid MD)1430 (Due: Stopped) sodium chloride 0.9% infusion 125 mL/hr, intravenous, Continuous, Starting on Thu10/29/22 at 0845, Recovery (GI) 0845 (Due) PRN Medication Order 10/27/2022 10/28/2022 10/29/2022 ondansetron (ZOFRAN) injection 4 mg 4 mg, intravenous, Administer over 2 Minutes, Every 30 min PRN, nausea, vomiting, Starting on Thu10/29/22 at 0806, For 2 doses, Recovery (GI), Indications: Nausea and Vomiting sodium chloride 0.9% flush 0.5-20 mL 0.5-20 mL, intra-catheter, As needed, line care, Starting on Thu10/29/22 at 0807, Pre-Procedure (GI), Flush volume based on line type and size. Flush before and after each use. documented in this encounter Orders Medications Ordered That Rg ht Not Have Been Administered Count Last Ordered Date First Ordered Date ondansetron (ZOFRAN) injection 4 mg 1 10/29 sodium chloride 0.9% flush 0.5-20 mL 2 08/2022 sodium chloride 0.9% infusion 1 10/29/2022 Discharge Count Last Ordered Date First Orde red Date DISCHARGE PATIENT 1 10/29/2022 documented in this encounter Care Teams [employer] Relationship Specialty Start Date End Date Parmjit Dai MD PCP - General 12/31/20 Mere Landa NP Nurse Practitioner 02/07/20 Tico Burton MD Surgeon General Surgery 08/09/21 documented as of this encounter
--- OUTSIDE RECORDS SUMMARY | 2024-08-16 04:33 | XMS_ITS | Encounter Summary ---
Author Organization [facility] Healthcare Address [address] [place] [address] Care Team Providers Care Pipe Testing Technician Name Role Phone Mere Landa NP Unavailable [phone] Parmjit Dai MD Primary Care Provider [phone] Tico Burton MD Unavailable + [phone] Encounter Details Date Type Department Care Team (Latest Contact Info) Description 06/10/2023 7:00 AM CDT - 06/10/2023 11:59 PM CDT Hospital Encounter [address] Anemia, unspecified type Discharge Disposition: Discharge to home [...] on file Legal Sex Female 10:06 AM COTTONSEED MEAT PRESSER Gender Identity Female 06/17/2024 7:02 AM CDT [...] tablet (25 mg total) by mouth daily lubiprostone (AMITIZA) 24 mcg capsule Take 1 [...] or self care documented in this encounter Miscellaneous Notes * Result Encounter Note - Richard Bowman NP - 06/10/2023 2:28 PM CDT Results discussed with patient via [place]. Stool testing negative for blood. documented in this encounter Plan of Treatment Upcoming Encounters Date Type Department Care Team (Latest Contact Info) Description 09/07/2024 8:30 AM COTTONSEED MEAT PRESSER Hospital Encounter [facility] [address] [place] [phone] Forest Catherine MD [address] [address] 09/07/2024 8:30 AM COTTONSEED MEAT PRESSER - 09/07/2024 9:00 AM COTTONSEED MEAT PRESSER Surgery [facility] [address] [place] [phone] Forest Catherine MD [address] [address] EGD w/Endo Flip & YI placement Scheduled Procedures Name Priority Associated Diagnoses Date/Ti me ESOPHAGOGASTRODUODENOSCOPY Hiatal hernia Gastroesophageal reflux disease, unspecified whether esophagitis present 09/07/2024 8:30 AM COTTONSEED MEAT PRESSER documented as of this encounter Procedures Procedure Name Priority Date/Time Associated Diagnosis Comments GUAIAC OCCULT BLOOD, FECAL, NOT FOR NEOPLASM SCREENING Routine 06/10/2023 11:50 AM CDT Anemia, unspecified type GUAIAC OCCULT BLOOD, FECAL, NOT FOR NEOPLASM SCREENING Routine 06/10/2023 11:50 AM CDT Anemia, unspecified type documented in this encounter Results * Guaiac occult blood, fecal, non-neoplasm (06/10/2023 11:50 AM CDT) Guaiac occult blood, fecal Negative Negative Stool 06/10/2023 11:5 0 AM CDT 06/10/2023 1:48 PM CDT Narrative BREN GON[facility]ALE[facility] ([place]) - 06/10/2023 1:53 PM CDT Yes x2 please. Richard Bowman NP LAB BODY FLUIDS AND STOOLS ORDERABLES Final Result Performing Organization Address City/[facility] Co de Phone Number BREN GONZALEZ ([place]) [address] [facility] [place] [address] * Guaiac occult blood, fecal, non-neoplasm (06/10/2023 11:50 AM CDT) Guaiac occult blood, fecal Negative Negative Stool 06/10/2023 11:5 0 AM CDT 06/10/2023 1:48 PM CDT Narrative BREN GONZALEZ ([place]) - 06/10/2023 1:53 PM CDT Yes, x2 please. Richard Bowman NP LAB BODY FLUIDS AND STOOLS ORDERABLES Final Result BREN GONZALEZ ([place]) [address] [place] [address] [place] [address] documented in this encounter Visit Diagnoses Diagnosis Anemia, unspecified type Hiatal hernia Diaphragmatic hernia without mention of obstruction or gangrene Gastroesophageal reflux disease, unspecified whether esophagitis present documented in this encounter Care Teams Pipe Testing Technician Relationship Specialty Start Date End Date Parmjit Dai MD PCP - General 12/31/20 CordellMree garcia NP Nurse Practitioner 02/07/20 Tico Burton MD Surgeon General Surgery 08/09/21 documented as of this encounter
--- OUTSIDE RECORDS SUMMARY | 2024-08-16 04:33 | XMS_ITS | Encounter Summary ---
Author Organization [facility] Healthcare Address [address] [place] [address] Care Team Providers Care Monumental Stonemason Name Role Phone Mere Landa NP Unavailable [phone] Parmjit Dai MD Primary Care Provider [phone] Tico Burton MD Unavailable [phone] Reason for Visit * Auth/Cert Specialty Diagnoses / Procedures Referred By Contac t Referred To Contact Diagnoses Colitis Colitis [K52.9] Procedures [place] COLONOSCOPY FLX DX W/COLLJ SPEC WHEN PFRMD COLONOSCOPY Referral ID Status Reason Start Date Expiration Date Visits Re quested Visits Authorized [id number] 1 1 Encounter Details Date Type Department Care Team (Late st Contact Info) Description 10/29/2022 9:16 AM CIGARETTE ROLLER Anesthesia Event [facility] Center [address] [place] [address] Travis Shahid MD [address] [place] [id number] Anesthesia Record Procedure Summary Procedure Name Responsible Anesthesiologist Anesthesia Start Time Anesthesia Stop Time COLON BIOPSY Travis Shahid MD 10/29/22 0916 10/29/22 0933 Events Date Time Event Comment 10/29/2022 0844 0906 In Room 0908 An Start Data 0916 An Start 0916 Start Supplemental O2 0916 Patient Positioned Laterally 0918 An Induction The patient was reevaluated immediately before moderate or deep sedation use and before anesthesia induction. 0918 Anesthesia Ready 0933 an stop data 0933 Handoff to RN I completed my handoff [...] disposition at the time of handoff: PACU 33 An Stop 0935 Out of Room Meds Name Total lidocaine (cardiac) syringe 2 % 100 mg propofol 340 mg sodium chloride 0.9% infusion 350 mL * Agents No agents on file. * Blood No blood administrations on file. Lines, Drains, and Airways Type Details Placement Removal Peripheral IV Placement Date: 09/22; Placement Time: 841; Catheter Size: 20 G; Orientation: Right; Location: Hand; Site Prep: Alcohol; Insertion Attempts: 3; Removal Date: 10/29/22; Removal Time: 1013 10/29/22 0842 by Adryan Benavides RN 10/29/22 1013 by Adryan Benavides RN documented in this encounter Social History Tobacco Use Types Packs/Day Years Used Date Smoking Tobacco: Former Cigarettes 1 984 - 2000 Smokeless Tobacco: Never Comments:off and on Alcohol [...] on file Legal Sex Female 10:06 AM CIGARETTE ROLLER Gender Identity Female 06/17/2024 7:02 AM CDT Sexual Orientation Not on file documented as of this encounter OR Notes * Anesthesia Postprocedure Evaluation - Travis Shahid MD - 10/29/2022 9:42 AM CST Patient: Sarahy Gill Procedure Summary Date: 10/29/22 Room / Location: [facility] ROOM 1 / [facility] Anesthesia Start: 915 Anesthesia Stop: 932 Procedure: COLON BIOPSY Diagnosis: Colitis (Colitis [K52.9]) Providers: Germania Sorto MD Responsible Provider: Travis Shahid MD Anesthesia Type: general/TIVA ASA Status: 3 Anesthesia Type: general/TIVA Last vitals BP 93/51 Pulse 60 Temp 36.6 ??C (97.9 ??F) (Temporal) Resp 20 SpO2 100% Anesthesia Post Evaluation Patient location during evaluation: PACU Patient participation: complete - patient participated Level of consciousness: fully awake Pain management: adequate Airway patency: adequate Evidence of recall: no Cardiovascular status: acceptable Respiratory status: acceptable Hydration status: acceptable Pt is: normothermic Nausea/Vomiting status: none No notable events documented. RETTE ROLLER * Anesthesia Preprocedure Evaluation - Travis Shahid MD - 10/29/2022 8:09 AM CST Images from the original note were not included. Anesthesia Evaluation Sarahy Gill is a 52 y.o. female Procedure(s): COLONOSCOPY Pre-Op Diagnosis Codes: * Colitis [K52.9] HISTORY Past Medical History Information obtained from: patient and chart. Neurological + TIA + Psychiatric history - anxiety, depression and bipolar Cardiovascular + Hypertension + Hyperlipidemia + Atrial fibrillation/flutter - Respiratory Respiratory system: negative Hepatic / Heme Hepatic/Heme system: negative Gastrointestinal + GERD - on daily therapy. Renal / Renal/ system: negative Musculoskeletal/Pain + Osteoarthritis + Headaches - migraine headaches. Endocrine / Other Endocrine/Other system: negative Day of Surgery assessments + Possibility of assessed - ruled out by patient's provided history. Patient Active Problem List Diagnosis ??? Irritable bowel syndrome with both constipation and diarrhea ??? Essential tremor ??? Jerky body movements ??? Orthostatic dizziness ??? Hypertension ??? Atrial fibrillation (CMS/HCC) (HCC) ??? Palpitations ??? Migraine headache ??? Abdominal pain, generalized ??? Cyclic vomiting syndrome ??? Bipolar affect, depressed (CMS/HCC) (HCC) ??? Intussusception intestine (CMS/HCC) (HCC) ??? TIA (transient ischemic attack) ??? Dysuria ??? Hypokalemia ??? Periumbilical abdominal pain ??? Irritable bowel syndrome with both constipation and diarrhea ??? Chronic nausea ??? History of repair of hiatal hernia ??? Gastroesophageal reflux disease without esophagitis ??? Hepatic steatosis ??? History of colonoscopy with polypectomy ??? Nausea and vomiting ??? Marijuana use ??? Nausea and vomiting, unspecified vomiting type ??? Chronic superficial gastritis without bleeding ??? Chronic anemia ??? Gastroesophageal reflux disease with esophagitis without hemorrhage ??? Cyclical vomiting ??? Gastritis ??? Colitis Past Medical History: Diagnosis Date ??? A-fib (CMS/HCC) (HCC) ??? Anxiety ??? Arthritis ??? Bipolar affect, depressed (CMS/HCC) (HCC) ??? Colon polyp ??? Cyclic vomiting syndrome ??? Depression ??? Headache, tension-type ??? Hypertension ??? Hypotension ??? IBS (irritable bowel syndrome) ??? Migraine ??? Stroke (CMS/HCC) (HCC) ??? Weight loss Past Surgical History: Procedure Laterality Date ??? ABDOMINAL SURGERY 2013 hiatel hernia repair ??? ARTHROSCOPIC SURGERY Left 1984,1994,2001 knee ??? SECTION 1992 ??? CHOLECYSTECTOMY ??? COLONOSCOPY 1-2yrs ago ??? ENDOMETRIAL ABLATION ??? HERNIA REPAIR ??? POLYPECTOMY ??? TUBAL LIGATION OB History 8 Para 6 Term 6 AB Living SAB IAB Ectopic Multiple Live Births Allergies Allergen Reactions ??? Compazine [Prochlorperazine] Other (See comments) made me feel weird, odd also agitation ??? Phenergan [Promethazine] Agitation ??? Reglan [Metoclopramide] Other (See comments) Had TIA after trying. ??? Zithromax [Azithromycin] Stomach upset Taking? Last Dose Start Date End Date Provider apixaban (ELIQUIS) 5 mg tablet -- -- -- ProviderRosanne MD atorvastatin (LIPITOR) 40 mg tablet () -- 08/13/21 09/02/22 Letha Rose MD Take 1 tablet (40 mg total) by mouth daily ciprofloxacin (CIPRO) 500 mg tablet -- 09/04/22 -- Kat Biggs MD Take 1 tablet (500 mg total) by mouth 2 (two) times a day dicyclomine (BENTYL) 10 mg capsule -- 09/24/21 -- Richard Gracia NP Take 2 capsules (20 mg total) by mouth 4 (four) times a day as needed (abdominal pain/cramping) escitalopram (LEXAPRO) 10 mg tablet -- -- -- Rosanne Perez MD famotidine (PEPCID) 20 mg tablet -- 01/15/22 -- Richard Gracia NP Take 1 tablet (20 mg total) by mouth daily as needed for indigestion or heartburn flecainide (TAMBOCOR) 100 mg tablet -- 07/08/22 -- Rosanne Perez MD lubiprostone (AMITIZA) 24 mcg capsule -- 06/05/22 -- Richard Gracia NP TAKE 1 CAPSULE(24 MCG) BY MOUTH TWICE DAILY WITH MEALS Notes: ZERO refills remain on this prescription. Your patient is requesting advance approval of refills for this medication to PREVENT ANY MISSED DOSES metoprolol XL (TOPROL-XL) 25 mg extended release tablet -- -- -- Rosanne Perez MD nortriptyline (PAMELOR) 25 mg capsule -- 12/20/21 12/20/22 Joshua Pearson MD Take 1 capsule (25 mg total) by mouth nightly ondansetron (ZOFRAN) 4 mg tablet -- 09/24/21 -- Richard Gracia NP Take 1 tablet (4 mg total) by mouth every 6 (six) hours ondansetron ODT (ZOFRAN-ODT) 8 mg disintegrating tablet -- 09/04/22 -- Richadr Gracia NP Take 1 tablet (8 mg total) by mouth every 6 (six) hours as needed for nausea or vomiting Notes: 4 mg dose is not working. pantoprazole DR (PROTONIX) 40 mg EC tablet -- 09/24/21 -- Richard Gracia NP Take 1 tablet (40 mg total) by mouth daily SUMAtriptan (IMITREX) 50 mg tablet -- -- -- Rosanne Perez MD traMADoL (ULTRAM) 50 mg tablet -- 09/04/22 -- Kat Biggs MD Take 1 tablet (50 mg total) by mouth every 6 (six) hours as needed for pain for up to 15 doses Current Facility-Administered Medications: ??? ondansetron (ZOFRAN) injection 4 mg, 4 mg, intravenous, Q30 Min PRN ??? sodium chloride 0.9% flush 0.5-20 mL, 0.5-20 mL, intra-catheter, Q8H MERON ??? sodium chloride 0.9% flush 0.5-20 mL, 0.5-20 mL, intra-catheter, PRN ??? sodium chloride 0.9% infusion, 30 mL/hr, intravenous, Continuous ??? sodium chloride 0.9% infusion, 125 mL/hr, intravenous, Continuous Social History Tobacco Use Smoking Status Former ??? Types: Cigarettes ??? Start date: 1983 ??? Quit date: 1999 ??? Years since quittin.1 Smokeless Tobacco Never Tobacco Comments off and on Alcohol Use: Not At Risk ??? Frequency of Alcohol Consumption: Never ??? Average Number of Drinks: Patient does not drink ??? Frequency of Binge Drinking: Never Substance and Sexual Activity Drug Use Yes ??? Types: Marijuana Comment: occasionally Family History Problem Relation Age of Onset ??? Esophageal cancer Maternal Grandmother ??? Heart disease Maternal Grandmother ??? Stroke Maternal Grandmother ??? Hypertension Maternal Grandmother ??? Migraines Mother There were no vitals filed for this visit. PT: No results found for requested labs within last 720 hours. INR: No results found for requested labs within last 720 hours. APTT: No results found for requested labs within last 720 hours. Hgb A1C: No results found for requested labs within last 720 hours. CBC RBC: No results found for requested labs within last 720 hours. RDW: No results found for requested labs within last 720 hours. MCHC: No results found for requested labs within last 720 hours. MCH: No results found for requested labs within last 720 hours. MCV: No results found for requested labs within last 720 hours. Hct: No results found for requested labs within last 720 hours. Hgb: No results found for requested labs within last 720 hours. WBC: No results found for requested labs within last 720 hours. MPV: No results found for requested labs within last 720 hours. Platelets: No results found for requested labs within last 720 hours. RDW CV: No results found for requested labs within last 720 hours. RDW Sd: No results found for requested labs within last 720 hours. BMP Glucose: No results found for requested labs within last 720 hours. Calcium: No results found for requested labs within last 720 hours. Sodium: No results found for requested labs within last 720 hours. Potassium: No results found for requested labs within last 720 hours. CO2: No results found for requested labs within last 720 hours. Chloride: No results found for requested labs within last 720 hours. BUN: No results found for requested labs within last 720 hours. Creatinine: No results found for requested labs within last 720 hours. DOS Physical Exam Medical history, medications, and allergies reviewed. Attestation: I endorse the findings of the anesthesia pre-evaluation assessment dated: 10/29/2022. Airway Exam: Mallampati: I Cervical ROM: FROM TM distance: normal Cardiovascular Exam: Rate: regular Rhythm: regular Pulmonary Exam: LCTA, bilat Dental Exam: Edentulous Current state: Patient's current state is cooperative and interactive. Anesthesia Plan ASA 3 My patient is approved for the Anesthesia Controlled Medication protocol when under care of a HEAD OF PRECISION TARGETING Planned anesthesia: General/TIVA Induction: Induction: intravenous. Postoperative Plan: No plan for postoperative opioid use. No postoperative mechanical ventilation intended. Patient's planned disposition post procedure is Outpatient. Informed Consent: Discussed plan with attending and HEAD OF PRECISION TARGETING. Anesthesia plan and risks discussed with patient. Consent and Attending signature: I and/or my designee have discussed the anesthesia plan, benefits, possible alternatives, parental presence at time of induction (if indicated), and clinically relevant risks that may include dental injury, unintentional awareness, and/or other complications. The patient and/or parent/legal guardian understand, and agree to proceed. All questions answered. RETTE ROLLER RETTE ROLLER documented in this encounter Plan of Treatment Upcoming Encounters Date Type Department Care Team (Latest Contact Info) Description 09/07/2024 8:30 AM CIGARETTE ROLLER Hospital Encounter [facility] [address] [place] [phone] Forest Catherine MD [address] [place] [id number] 09/07/2024 8:30 AM CIGARETTE ROLLER - 09/07/2024 9:00 AM CIGARETTE ROLLER Surgery [facility] [address] [place] [phone] Forest Catherine MD [address] [place] [id number] EGD w/Endo Flip & YI placement Scheduled Procedures Name Priority Associated Diagnoses Date/Ti me ESOPHAGOGASTRODUODENOSCOPY Hiatal hernia Gastroesophageal reflux disease, unspecified whether esophagitis present 09/07/2024 8:30 AM CIGARETTE ROLLER documented as of this encounter Visit Diagnoses Not on filedocumented in this encounter Administered Medications Inactive Administered Medications - up to 3 most recent administrations Medication Order MAR Action Action Date Dose Rate Site lidocaine (XYLOCAINE) 20 mg/mL (2 %) preservative free injection intravenous, As needed, Starting on Thu10/29/22 at 0918, Anesthesia Intra-op Given 10/29/2022 9:18 AM CIGARETTE ROLLER 100 mg propofoL (DIPRIVAN) 10 mg/mL IV intravenous, As needed, Starting on Thu10/29/22 at 0918, Anesthesia Intra-op Given 10/29/2022 9:28 AM CIGARETTE ROLLER 40 mg Given 10/29/2022 9:26 AM CIGARETTE ROLLER 50 mg Given 10/29/2022 9:21 AM CIGARETTE ROLLER 80 mg sodium chloride 0.9% infusion 30 mL/hr, intravenous, Continuous, Starting on Thu10/29/22 at 0845, Pre-Procedure (GI) Restarted 10/29/2022 9:18 AM CIGARETTE ROLLER Rate/Dose Verify 10/29/2022 9:16 AM CIGARETTE ROLLER 30 mL/h r New Bag 10/29/2022 8:43 AM CIGARETTE ROLLER 30 mL/hr 30 mL/hr documented in this encounter Care Teams Monumental Stonemason Relationship Specialty Start Date End Date Parmjit Dai MD PCP - General 12/31/20 Mere Landa NP Nurse Practitioner 02/07/20 Tico Burton MD Surgeon General Surgery 08/09/21 documented as of this encounter
--- OUTSIDE RECORDS SUMMARY | 2024-08-16 04:33 | XMS_ITS | Encounter Summary ---
Author Organization [facility] Healthcare Address [address] [place] [address] Care Team Providers Care Supervisor Coke Handling Name Role Phone Mere Landa NP Unavailable [phone] Parmjit Dai MD Primary Care Provider [phone] Tico Burton MD Unavailable [phone] Reason for Visit * Auth/Cert Specialty Diagnoses / Procedures Referred By Contac t Referred To Contact Diagnoses Colitis Colitis [K52.9] Procedures KS COLONOSCOPY FLX DX W/COLLJ SPEC WHEN PFRMD COLONOSCOPY Referral ID Status Reason Start Date Expiration Date Visits Re quested Visits Authorized [id number] 1 1 Encounter Details Date Type Department Care Team (Latest Contact Info) Description 10/29/2022 7:57 AM MAINTENANCE INSPECTOR - 10/29/2022 10:30 AM MAINTENANCE INSPECTOR Hospital Encounter [facility] [address] [place] [address] Germania Sorto MD [address] [place] [id number] Colitis Discharge Disposition: Discharge to home or self care Social History Tobacco Use Types Packs/Day Years Used Date Smoking Tobacco: Former Cigarettes 1 - 1999 Smokeless Tobacco: Never Tobacco Cessation:Counseling [...] on file Legal Sex Female 10:06 AM MAINTENANCE INSPECTOR Gender Identity Female 06/17/2024 7:02 AM CDT Sexual Orientation Not on file documented as of this encounter Last Filed Vital Signs Vital Sign Reading Time Taken Comments Blood Pressure 116/65 10/29/2022 10:10 AM MAINTENANCE INSPECTOR Pulse 55 10/29/2022 10:10 AM MAINTENANCE INSPECTOR Temperature 36.7 ??C (98.1 ??F) 10/29/2022 10:[address] Respiratory Rate 20 10/29/2022 10:10 AM MAINTENANCE INSPECTOR Oxygen Saturation 100% 10/29/2022 10:10 AM MAINTENANCE INSPECTOR Inhaled Oxygen Concentration - - Weight 63.5 kg (140 lb) 10/29/2022 8:16 AM MAINTENANCE INSPECTOR Height 162.6 cm (5' 4 ) 10/29/2022 8:16 AM MAINTENANCE INSPECTOR Body Mass Index 24.03 10/29/2022 8:16 AM MAINTENANCE INSPECTOR documented in this encounter Medications at Time [...] Past Medical History: Diagnosis Date A-fib (CMS/HCC) ([facility]) Anxiety Arthritis Bipolar affect, depressed (CMS/HCC) ([facility]) Colon polyp Cyclic vomiting syndrome Depression Headache, tension-type Hypertension Hypotension IBS (irritable bowel syndrome) Migraine Stroke (CMS/HCC) ([facility]) Weight loss Past Surgical History: [...] evaluation GI PLAN/RECOMMENDATIONS: Colonoscopy Germania Sorto MD TENANCE INSPECTOR documented in this encounter Procedure Notes * Germania Sorto MD - 10/29/2022 7:59 AM CSTAssociated Order(s): [facility] Patient Name: Sarahy Gill Procedure Date: 10/29/2022 7:59 AM Date of : 1970 Admit Type: Outpatient Age: 52 Gender: Female Attending MD: Germania Sorto M.D. Room: [facility] END[facility]COPY ROOM 1 Note Status: Finalized Patient [...] under direct vision. The Pediatric Colonoscope PCF-H190L [id number] was introduced through the anus and advanced [...] 7:59 AM Procedure Code(s): --- Professional --- 57248, Colonoscopy, flexible; with biopsy, single or multiple Diagnosis Code(s): --- Professional --- K64.8, Other hemorrhoids D12.3, Benign neoplasm of transverse colon (hepatic flexure or splenic flexure) K52.9, Noninfective gastroenteritis and colitis, unspecified CPT copyright 2020 [employer]. All rights reserved. The codes documented in this report are preliminary and upon automated logistics specialist review may be revised to meet current compliance requirements. Recognized by the [employer] for promoting quality in endoscopy TENANCE INSPECTOR documented in this encounter Miscellaneous Notes * Perioperative Nursing Note - Adryan Benavides RN - 10/29/2022 9:[address] Sorto spoke with the patient about the procedure. Patient is to have a repeat colonoscopy in4 years. TENANCE INSPECTOR documented in this encounter Plan of Treatment Upcoming Encounters Date Type Department Care Team (Latest Contact Info) Description 09/07/2024 8:30 AM MAINTENANCE INSPECTOR Hospital Encounter [facility] [address] [place] [phone] Forest Catherine MD [address] [address] 09/07/2024 8:30 AM MAINTENANCE INSPECTOR - 09/07/2024 9:00 AM MAINTENANCE INSPECTOR Surgery [facility] [address] [place] [phone] Forest Catherine MD [address] [address] EGD w/Endo Flip & YI placement Scheduled Procedures Name Priority Associated Diagnoses Date/Ti me ESOPHAGOGASTRODUODENOSCOPY Hiatal hernia Gastroesophageal reflux disease, unspecified whether esophagitis present 09/07/2024 8:30 AM MAINTENANCE INSPECTOR documented as of this encounter Procedures Procedure Name Priority Date/Time Associated Diagnosis Comments SURGICAL PATHOLOGY STAT 10/29/2022 1: 04 PM MAINTENANCE INSPECTOR Colitis COLON BIOPSY 10/29/2022 9:01 AM MAINTENANCE INSPECTOR Colitis COLONOSCOPY 10/29/2022 7:59 AM MAINTENANCE INSPECTOR documented in this encounter Results * Surgical pathology (10/29/2022 1:04 PM MAINTENANCE INSPECTOR) Tissue (Polyp(s), colon/colorectal, esophageal, gastric) 10/29/2022 9:32 AM MAINTENANCE INSPECTOR Tissue (Colon, Biopsy) 10/29/2022 9:32 AM MAINTENANCE INSPECTOR Narrative PATHOLOGY [facility] - 10/30/2022 10:44 AM MAINTENANCE INSPECTOR EPIC results best viewed via link to PDF [facility] Department of Pathology [address] [place], [place] [id number] Note to Patients: This report may contain [...] explain the details. Final Report Patient Name: ??KSENIA GILLTheresa Coyne Address: ??[address] [place] [address], ??[place], [place] ?? Gender: ??F : ??1970 (Age: 52) Service: ??Gastro Location: ??[facility] Hospital #: ??[id number] Patient Type: ??[facility] Accession # ?[id number] Taken: ??10/29/2022 Received: ??10/29/2022 Accessioned: ??10/29/2022 Reported: [...] is submitted in two formalin containers labeled SARAHY GILL . A. ??The first container is labeled transverse colon polyp . It is 3 padron 2 mm fragments. All in A. B. ??The second container is labeled random . It is multiple padron 2-4 mm fragments. All in B. T.A. Emi Zuñiga, P.A./Mitch Alexander M.D. REPORT IMAGES AND SCANNED DOCUMENTS, IF INCLUDED, ONLY VIEWABLE IN PDF VERSION OF REPORT The performance characteristics of some immunohistochemical stains, fluorescence in-situ hybridization tests and immunophenotyping by flow cytometry cited in this report (if any) were determined by the Surgical Pathology Department at [facility] as part of an ongoing supplier quality engineer program and in compliance with federally mandated [...] characteristics determined by the Surgical Pathology Department [facility]. ??It has not been cleared or approved by the U. S. Food and Drug Administration. Note for decalcified specimens: This assay has not been validated on decalcified tissues. Results should be interpreted with caution given the possibility of false negativity on decalcified specimens Germania Sorto MD LAB PATHOLOGY ORDERABLES F inal Result PATHOLOGY [facility] [address] [place] [address] * COLONOSCOPY (10/29/2022 7:59 AM MAINTENANCE INSPECTOR) Anatomical Region Laterality Modality Other Narrative Procedure Note Germania Sorto MD - 10/29/2022 7:59 AM CST [facility] Patient Name: Sarahy Gill Procedure Date: 10/29/2022 7:59 AM Date of : 1970 Admit Type: Outpatient Age: 52 Gender: Female Attending MD: Germania Sorto M.D. Room: [facility]COPY ROOM 1 Note Status: Finalized Patient [...] under direct vision. The Pediatric Colonoscope PCF-H190L [id number] was introducedthrough the anus and advanced to [...] 7:59 AM Procedure Code(s): --- Professional --- 28900, Colonoscopy, flexible; with biopsy, single or multiple Diagnosis Code(s): --- Professional --- K64.8, Other hemorrhoids D12.3, Benign neoplasm of transverse colon (hepatic flexure orsplenic flexure) K52.9, Noninfective gastroenteritis and colitis, unspecified CPT copyright 2020 [employer]. All rights reserved. The codes documented in this report are preliminary and upon automated logistics specialist reviewmay be revised to meet current compliance requirements. Recognized by the [employer] for promoting quality [...] 0845, Pre-Procedure (GI) Restarted 10/29/2022 9:18 AM MAINTENANCE INSPECTOR Rate/Dose Verify 10/29/2022 9:16 AM MAINTENANCE INSPECTOR 30 mL/h r New Bag 10/29/2022 8:43 AM MAINTENANCE INSPECTOR 30 mL/hr 30 mL/hr sodium chloride 0.9% [...] Recently Administered Medications Times are shown in MAINTENANCE INSPECTOR. Scheduled Medication Order 10/27/2022 10/28/2022 10/29/2022 sodium [...] 10/29/2022 documented in this encounter Care Teams Supervisor Coke Handling Relationship Specialty Start Date End Date Parmjit Dai MD PCP - General 12/31/20 Mere Landa NP Nurse Practitioner 02/07/20 Tico Burton MD Surgeon General Surgery 08/09/21 documented as of this encounter
--- OUTSIDE RECORDS SUMMARY | 2024-08-16 04:33 | XMS_ITS | Encounter Summary ---
Author Organization [facility] Healthcare Address [address] [place] [address] Care Team Providers Care Diamond Driller Helper Name Role Phone Mere Landa NP Unavailable [phone] Parmjit Dai MD Primary Care Provider [phone] Tico Burton MD Unavailable [phone] Encounter Details Date Type Department Care Team (Late st Contact Info) Description 07/20/2023 Telephone [facility] Gastroenterology at [address] [place] [address] Richard Bowman NP [address] [place] [address] [address] [place] [address] Social History Tobacco Use Types Packs/Day Years [...] on file Legal Sex Female 10:06 AM DIGITAL MARKETING APPRENTICE Gender Identity Female 06/17/2024 7:02 AM CDT Sexual Orientation Not on file documented as of this encounter Miscellaneous Notes * Telephone Encounter - Kalani Barth - 07/21/2023 10:25 AM CST Called patient and she was agreeable to having EGD done on 08/21/23 at 11:00 am. TAL MARKETING APPRENTICE * Telephone Encounter - Richard Bowman NP - 07/20/2023 3:48 PM DIGITAL MARKETING APPRENTICE Patient and I have been communicating via my chart. She has ongoing stomach upset after eating/abdominal pain. Please schedule her an EGD with Dr. Sorto for evaluation of abdominal pain and dyspepsia. Please try to do within the next six weeks, if possible as she has had a few ER visits for this issue. TAL MARKETING APPRENTICE documented in this encounter Plan of Treatment Upcoming Encounters Date Type Department Care Team (Latest Contact Info) Description 09/07/2024 8:30 AM DIGITAL MARKETING APPRENTICE Hospital Encounter [facility] [address] [place] [phone] Forest Catherine MD [address] [address] 09/07/2024 8:30 AM DIGITAL MARKETING APPRENTICE - 09/07/2024 9:00 AM DIGITAL MARKETING APPRENTICE Surgery [facility] [address] [place] [phone] Forest Catherine MD [address] [address] EGD w/Endo Flip & YI placement Scheduled Procedures Name Priority Associated Diagnoses Date/Ti me ESOPHAGOGASTRODUODENOSCOPY Hiatal hernia Gastroesophageal reflux disease, unspecified whether esophagitis present 09/07/2024 8:30 AM DIGITAL MARKETING APPRENTICE documented as of this encounter Visit Diagnoses Not on filedocumented in this encounter Care Teams Diamond Driller Helper Relationship Specialty Start Date End Date Parmjit Dai MD PCP - General 12/31/20 Mere Landa NP Nurse Practitioner 02/07/20 Tico Burton MD Surgeon General Surgery 08/09/21 documented as of this encounter
--- OUTSIDE RECORDS SUMMARY | 2024-08-16 04:33 | XMS_ITS | Encounter Summary ---
Author Organization [facility] Healthcare Address [address] [place] [address] Care Team Providers Care Roof Mechanic Name Role Phone Mere Landa NP Unavailable [phone] Parmjit Dai MD Primary Care Provider [phone] Tico Burton MD Unavailable [phone] Encounter Details Date Type Department Care Team (Late st Contact Info) Description 08/19/2023 9:35 AM ESTIMATOR LUMBER [address] [phone] Social History Tobacco Use Types Packs/Day Years Used Date Smoking Tobacco: Former Cigarettes 1 984 - 1999 Smokeless Tobacco: Never Comments:off and [...] on file Legal Sex Female 10:06 AM ESTIMATOR LUMBER Gender Identity Female 06/17/2024 7:02 AM CDT Sexual Orientation Not on file documented as of this encounter Plan of Treatment Upcoming Encounters Date Type Department Care Team (Latest Contact Info) Description 09/07/2024 8:30 AM ESTIMATOR LUMBER Hospital Encounter [facility] [address] [place] [phone] Forest Catherine MD [address] [address] 09/07/2024 8:30 AM ESTIMATOR LUMBER - 09/07/2024 9:00 AM ESTIMATOR LUMBER Surgery [facility] [address] [place] [phone] Forest Catherine MD [address] [address] EGD w/Endo Flip & YI placement Scheduled Procedures Name Priority Associated Diagnoses Date/Ti me ESOPHAGOGASTRODUODENOSCOPY Hiatal hernia Gastroesophageal reflux disease, unspecified whether esophagitis present 09/07/2024 8:30 AM ESTIMATOR LUMBER documented as of this encounter Procedures Procedure Name Priority Date/Time Associated Diagnosis Comments CREATININE, WHOLE BLOOD STAT 08/19/2023 9:42 AM ESTIMATOR LUMBER documented in this encounter Results * Creatinine, whole blood (08/19/2023 9:42 AM ESTIMATOR LUMBER) Creatinine, bld 0.87 0.60 - 1.30 mg/dL [facility] Blood 08/19/2023 9:42 AM ESTIMATOR LUMBER 08/19/2023 9:51 AM ESTIMATOR LUMBER us Richard Bowman BITUMASTIC APPLIER LAB BLOOD ORDERABLE S Final Result [facility] [address] [facility] Department [place] [address] documented in this encounter Visit Diagnoses Not on filedocumented in this encounter Care Teams Roof Mechanic Relationship Specialty Start Date End Date Parmjit Dai MD PCP - General 12/31/20 Mere Landa NP Nurse Practitioner 02/07/20 Tico Burton MD Surgeon General Surgery 08/09/21 documented as of this encounter
--- OUTSIDE RECORDS SUMMARY | 2024-08-16 04:33 | XMS_ITS | Encounter Summary ---
Author Organization [facility] Address [address] [facility] [address] [place] [address] Care Team Providers Care Forge Operator Name Role Phone Mere Landa NP Unavailable [phone] Parmjit Dai MD Primary Care Provider [phone] Tico Burton MD Unavailable [phone] Encounter Details Date Type Department Care Team (Late st Contact Info) Description 05/25/2023 Telephone [facility] Gastroenterology at [address] [place] [address] Swetha Worthy MA Social History Tobacco Use Types Packs/Day Years Used Date Smoking Tobacco: Former Cigarettes 1 984 - 1999 Smokeless Tobacco: Never Comments:off and on Alcohol Use Standard Drinks/Week Comments No 0 (1 standard drink = 0.6 oz pur e alcohol) on occasion AUDIT-C Answer Date Recorded Q1: How often do you have a drink containing alcohol? Never 04/17/2023 Q2: How many drinks containi ng alcohol do you have on a typical day when you are drinking? Patient does not drink Q3: How often do you have si x or more drinks on one occasion? Never 04/17/2023 PHQ-2 Answer Date Recorded PHQ-2 Total Score (If total score is 3 or more points, staff should administer the PHQ-9) 0 08/09/2021 Comments No Sex and Gender Information Value Date Recorded Sex Assigned at Not on file Legal Sex Female 10:06 AM INSURANCE REPRESENTATIVE Gender Identity Female 06/17/2024 7:02 AM CDT Sexual Orientation Not on file documented as of this encounter Miscellaneous Notes * Telephone Encounter - Richard Bowman NP - 05/26/2023 12:19 PM CDT Great- thank you! * Telephone Encounter - Keri Chamberlain MA - 05/26/2023 9:06 AM CDT Xifaxin has been approved and patient has been informed * Telephone Encounter - Keri Chamberlain MA - 05/25/2023 12:07 PM CDT Precert sent to cover my meds * Telephone Encounter - Richard Bowman NP - 05/25/2023 9:50 AM CDT Please also check into the rifaximin denial that she is talking about. * Telephone Encounter - Richard Bowman NP - 05/25/2023 9:50 AM CDT Please try to obtain a copy of any ER records before her visit. * Telephone Encounter - Swetha Worthy MA - 05/25/2023 9:27 AM CDT Patient called in requesting an ER follow up visit. Patient stated that she went to [facility] on Thursday due to feeling weak and vomiting. Patient stated she is unable to eat. She is also following up about a medication that you had prescribed that her insurance would not cover. I let the patient know that your first available appt was 06/08. Please advise documented in this encounter Plan of Treatment Upcoming Encounters Date Type Department Care Team (Latest Contact Info) Description 09/07/2024 8:30 AM INSURANCE REPRESENTATIVE Hospital Encounter [facility] [address] [place] [phone] Forest Catherine MD [address] [address] 09/07/2024 8:30 AM INSURANCE REPRESENTATIVE - 09/07/2024 9:00 AM INSURANCE REPRESENTATIVE Surgery [facility] [address] [place] [phone] Forest Catherine MD [address] [address] EGD w/Endo Flip & YI placement Scheduled Procedures Name Priority Associated Diagnoses Date/Ti me ESOPHAGOGASTRODUODENOSCOPY Hiatal hernia Gastroesophageal reflux disease, unspecified whether esophagitis present 09/07/2024 8:30 AM INSURANCE REPRESENTATIVE documented as of this encounter Visit Diagnoses Not on filedocumented in this encounter Care Teams Forge Operator Relationship Specialty Start Date End Date Parmjit Dai MD PCP - General 12/31/20 Mere Landa NP Nurse Practitioner 02/07/20 Tico Burton MD Surgeon General Surgery 08/09/21 documented as of this encounter
--- OUTSIDE RECORDS SUMMARY | 2024-08-16 04:33 | XMS_ITS | Encounter Summary ---
Author Organization [facility] Healthcare Address [address] [place] [address] Care Team Providers Care Multilith Operator Name Role Phone Mere Landa NP Unavailable [phone] Parmjit Dai MD Primary Care Provider [phone] Tico Burton MD Unavailable [phone] Encounter Details Date Type Department Care Team (Late st Contact Info) Description 08/12/2023 Telephone [facility] Gastroenterology at [address] [place] [phone] Antonio Hand MA Social History [...] on file Legal Sex Female 10:06 AM VEHICLE DELIVERY WORKER Gender Identity Female 06/17/2024 7:02 AM CDT Sexual Orientation Not on file documented as of this encounter Miscellaneous Notes * Telephone Encounter - Antonio Hand MA - 08/12/2023 12:36 PM VEHICLE DELIVERY WORKER Patient left a voicemail about not being able to get her gastric emptying study done due to eggs making her sick. I called patient and left voicemail asking her to call the office back so I could geta little more information to forward to the doctor. CLE DELIVERY WORKER documented in this encounter Plan of Treatment Upcoming Encounters Date Type Department Care Team (Latest Contact Info) Description 09/07/2024 8:30 AM VEHICLE DELIVERY WORKER Hospital Encounter [facility] [address] [place] [phone] Forest Catherine MD [address] [address] 09/07/2024 8:30 AM VEHICLE DELIVERY WORKER - 09/07/2024 9:00 AM VEHICLE DELIVERY WORKER Surgery [facility] [address] [place] [phone] Forest Catherine MD [address] [address] EGD w/Endo Flip & YI placement Scheduled Procedures Name Priority Associated Diagnoses Date/Ti me ESOPHAGOGASTRODUODENOSCOPY Hiatal hernia Gastroesophageal reflux disease, unspecified whether esophagitis present 09/07/2024 8:30 AM VEHICLE DELIVERY WORKER documented as of this encounter Visit Diagnoses Not on filedocumented in this encounter Care Teams Multilith Operator Relationship Specialty Start Date End Date Parmjit Dai MD PCP - General 12/31/20 Mere Landa NP Nurse Practitioner 02/07/20 Tico Burton MD Surgeon General Surgery 08/09/21 documented as of this encounter
--- OUTSIDE RECORDS SUMMARY | 2024-08-16 04:33 | XMS_ITS | Encounter Summary ---
Author Organization [facility] Address [address] [place] [address] Care Team Providers Care Corporate Account Executive Name Role Phone Mere Landa NP Unavailable [phone] Parmjit Dai MD Primary Care Provider [phone] Tico Burton MD Unavailable [phone] Reason for Visit * Reason Comments Follow-up 6 month follow up fo r ibs/nausea/gerd.Patient reports having nausea,constipation abdominal cramping. Irritable Bowel Syndrome GERD Nausea Abdominal Cramping Constipation Encounter Details Date Type Department Care Team (Latest Contact Info) Description 12/02/2022 8:30 AM CDT Office Visit [facility] Gastroenterology at [address] [place] [address] Richard Bowman NP [address] [place] [address] [address] [place] [address] Irritable bowel syndrome with both constipation and diarrhea (Primary Dx); Chronic nausea; Gastroesophageal reflux disease with esophagitis without hemorrhage; Chronic superficial gastritis without bleeding; History of repair of hiatal hernia; History of colonoscopy with polypectomy Social History Tobacco Use Types Packs/Day Years Used Date Smoking Tobacco: Former Cigarettes 1 984 - 1999 Smokeless Tobacco: Never Tobacco Cessation:Counseling Given: Not Answered Comments:off and on Alcohol Use Standard Drinks/Week Comments No 0 (1 standard drink = 0.6 oz pur e alcohol) on occasion AUDIT-C Answer Date Recorded Q1: How often do you have a drink containing alcohol? Never 12/02/2022 Q2: How many drinks containi ng alcohol do you have on a typical day when you are drinking? Patient does not drink Q3: How often do you have si x or more drinks on one occasion? Never 12/02/2022 PHQ-2 Answer Date Recorded PHQ-2 Total Score (If total score is 3 or more points, staff should administer the PHQ-9) 0 08/09/2021 Comments No Sex and Gender Information Value Date Recorded Sex Assigned at Not on file Legal Sex Female 10:06 AM CAREER COUNSELOR Gender Identity Female 06/17/2024 7:02 AM CDT Sexual Orientation Not on file documented as of this encounter Last Filed Vital Signs Vital Sign Reading Time Taken Comments Blood Pressure 107/69 12/02/2022 8:22 AM CDT Pulse 78 12/02/2022 8:22 AM CDT Temperature - - Respiratory Rate - - Oxygen Saturation 98% 12/02/2022 8:22 AM CDT Inhaled Oxygen Concentration - - Weight 67.6 kg (149 lb 1.6 oz) 12/02/2022 8:22 A M CDT Height 162.6 cm (5' 4 ) 12/02/2022 8:22 AM CDT Body Mass Index 25.59 12/02/2022 8:22 AM CDT documented in this encounter Patient Instructions * Patient Instructions* Richard Bowman NP - 12/02/2022 8:30 AM CDT Add in Milk of magnesia- 30 mls a few times weekly, in place of miralax, or if you need to, in addition to. documented in this encounter Progress Notes * Richard Bowman NP - 12/02/2022 8:30 AM CDT Images from the original note were not included. PATIENT DEMOGRAPHICS Sarahy Gill is a 52 y.o. White female. PATIENT'S CARE TEAM Patient Care Team: Parmjit Dai MD as PCP - General Mere Landa NP (Nurse Practitioner) Tico Burton MD as Surgeon (General Surgery) CHIEF COMPLAINT Chief Complaint Patient presents with Follow-up 6 month follow up for ibs/nausea/gerd.Patient reports having nausea,constipation abdominal cramping. Irritable Bowel Syndrome GERD Nausea Abdominal Cramping Constipation HPI/ROS New or existing patient visit: Existing. Referring Provider: Parmjit Dai MD Nkechi is here today for routine GI follow up. WILLEM with me was 09/02/22; appetite has overall improved and weight is up 11 lbs since that time. She has had the following testing completed in recent months: 10/29/2022-colonoscopy with Dr. Sorto: 5 mm tubular adenoma [...] Mild diffuse hepatic steatosis. 6. Normal appendix. The possible CT proven colitis was treated with antibiotics and symptoms subsided. No evidence of residual or inflammatory colitis on colonoscopy. Constipation is doing better. She is not always ableto take the Amitiza twice daily because she does not like to eat 1st thing in the morning and it is supposed to be taken with food. She is prescribed Amitiza 24 mcg b.i.d. some more often than not she finds herself taking it once daily. Also takes two senna-S daily and MiraLax a few times weekly. Tends to alternate between diarrhea and straining. At this point she is having a bowel movement usually every 3-4 days. Uses Bentyl as needed for the cramping with significant positive benefit. Also takes nortriptyline, which sometimes helps IBS symptoms. She uses Gas-X as needed with positive benefit. Having much less problematic nausea than she once did. No recent use of Zofran. Heartburn and reflux are currently well controlled on Protonix 40 mg daily and she is requiring rare use of famotidine for breakthrough symptoms. She stays away from spicy foods and red sauce is as they definitely trigger her GERD symptoms. No melena or hematochezia. No significant abdominal pain recently. EGD in early showed mild chronic inactive gastritis and reflux esophagitis changes. She took a course of doxycycline several months ago to cover for SIBO, but it did not have a positive impact on her symptoms. Celiac screening earlier this year was negative. She never did complete the stool testing to rule out EPI. No NSAID or aspirin use. Chronically anticoagulated on Eliquis. Former smoker. Vapes nicotine. Denies alcohol and drug use other than occasional marijuana use. Gallbladder previously surgically removed. PHYSICAL EXAM BP 107/69 (BP Location: Left arm, Patient Position: Sitting) Pulse 78 Ht 162.6 cm (5' 4 ) Wt 67.6 kg (149 lb 1.6 oz) SpO2 98% BMI 25.59 kg/m?? No LMP recorded. Patient is postmenopausal. [...] Psychiatric: Mood/behavioral normal. TESTS/LABS/PROCEDURES (not all inclusive) 10/29/2022-Colonoscopy with Dr. Sorto: 5 mm tubular [...] and diarrhea (primary encounter diagnosis) Chronic symptomatology. Constipation predominant. Improving over time, but not quite well controlled. She was encouraged to continue Amitiza. Currently taking once every day and sometimes twice dailybecause does not always eat breakfast and it is supposed to be taken with food or can cause nausea.I advised patient that she can try taking without eating and if it does not cause nausea, she can take it regardless of eating. If she is able to consistently take one dose b.i.d., I have a feeling that her IBS will significantly improve. For now she will continue two senna-S daily, and in place ofMiraLax or in addition to, can take one dose of milk of magnesia at 30 mils a few times weekly. Shewill continue Bentyl, nortriptyline, and Gas-X without change. She will continue to identify and avoid food triggers. Will check pancreatic elastase levels to see if she would benefit from PERT therapy. (R11.0) Chronic nausea Significantly improving over time and only problematic on rare occasion. Can continue Zofran as needed. Will focus on managing her constipation better as that seems to be one of the causes of the nausea, especially when fecal load is on the high side. Will check pancreatic elastase levels to see ifshe would benefit from PERT therapy. (K21.00) Gastroesophageal reflux disease with esophagitis without hemorrhage (K29.30) Chronic superficial gastritis without bleeding (Z98.890, Z87.19) History of repair of hiatal hernia Chronic symptomatology. Well controlled as long as she takes Protonix 40 mg daily. Has problematic symptoms if she misses a dose. For now, will have her continue it daily, but eventually I would liketo see her wean down to at least every other day dosing to reduce risk of potential side effects from long-term daily use. Can continue to use famotidine b.i.d. p.r.n.. However, does not have to takevery often at this point. Advised to continue moderate her diet, continue to avoid NSAIDs, triggers, and alcohol. Risks/benefits/side effects of long-term PPI use were discussed with patient. Previous hiatal hernia repair appeared to be intact on EGD completed in early . Vaping cessation encouraged. (Z98.890, Z86.010) History of colonoscopy with polypectomy On a four year surveillance schedule and needs repeat colonoscopy in October of 2026. Orders Placed This Encounter Pancreatic elastase, stool Standing Status: Future Standing Expiration Date: 12/03/2023 Return in about 4 months (around 04/03/2023) for IBS&GERD&Nausea. Medication(s) and/or immunization(s) uses and side effects briefly discussed. Patient verbalizes understanding of all instructions provided today and agrees with plan. This note is dictated and transcribed by [employer]. Manager Room variances may occur. Despite proofreading, typographical errors may occur. My collaborating physician is Dr. Germania Sorto-Gastroenterology. Richard Bowman NP documented in this encounter Plan of Treatment Upcoming Encounters Date Type Department Care Team (Latest Contact Info) Description 09/07/2024 8:30 AM CAREER COUNSELOR Hospital Encounter [facility] [address] [place] [phone] Forest Catherine MD [address] [address] 09/07/2024 8:30 AM CAREER COUNSELOR - 09/07/2024 9:00 AM CAREER COUNSELOR Surgery [facility] [address] [place] [phone] Forest Catherine MD [address] [address] EGD w/Endo Flip & YI placement Scheduled Procedures Name Priority Associated Diagnoses Date/Ti me ESOPHAGOGASTRODUODENOSCOPY Hiatal hernia Gastroesophageal reflux disease, unspecified whether esophagitis present 09/07/2024 8:30 AM CAREER COUNSELOR documented as of this encounter Results * Pancreatic elastase, stool (01/21/2023 9:30 AM CDT) Pancreatic elastase, stool 374 >200 (Normal) mcg/g BREN GONZALEZ ([place]) Comment: Test Performed by: [facility] [address] [place] [address] Newspaper Subscription Solicitor: Cheo Yuen M.D. Ph.D.; CLIA# [id number] Stool 01/21/2023 9:30 AM CDT 01/21/2023 12:19 PM CDT Richard Bowman COMMUNITY SERVICE SPECIALIST LAB BODY FLUIDS AND STOOLS ORDERABLES Final Result BREN GONZALEZ ([place]) [address] [facility] Department [place] [address] documented in this encounter Visit Diagnoses Diagnosis Irritable bowel syndrome with both constipation and diarrhea- Primary Chronic nausea Nausea alone Gastroesophageal reflux disease with esophagitis without hemorrhage Chronic superficial gastritis without bleeding History of repair of hiatal hernia History of colonoscopy with polypectomy Other postprocedural status Hiatal hernia Diaphragmatic hernia without mention of obstruction or gangrene Gastroesophageal reflux disease, unspecified whether esophagitis present documented in this encounter Historical Medications * This list may reflect changes made after this encounter. DULoxetine DR (CYMBALTA) 60 mg capsule Take 1 capsule (60 mg total) by mouth daily 10/01/2022 04/17/2023 hydrOXYzine (ATARAX) 50 mg tablet Take 1 tablet (50 mg total) by mouth 3 (three) times a day 10/01/2022 04/17/2023 added in this encounter Care Teams Corporate Account Executive Relationship Specialty Start Date End Date Parmjit Dai MD PCP - General 12/31/20 Mere Landa NP Nurse Practitioner 02/07/20 Tico Burton MD Surgeon General Surgery 08/09/21 documented as of this encounter
--- OUTSIDE RECORDS SUMMARY | 2024-08-16 04:33 | XMS_ITS | Encounter Summary ---
Author Organization [facility] Address [address] [place] [address] Care Team Providers Care Rn On Site Name Role Phone Mere Landa NP Unavailable [phone] Parmjit Dai MD Primary Care Provider [phone] Tico Burton MD Unavailable [phone] Reason for Visit * Reason Comments Consult Abnormal CT scan GI tract * Consultation (Routine) - Closed Specialty Diagnoses / Procedures Referred By Loreta ledbetter Referred To Contact General Surgery Diagnoses Abnormal CT scan, gastrointestinal tract Richard Bowman NP [address] [place] [address] DR SANTI[address]O [address] [place] [id number] Phone: tel: fax: Ivan Liang MD Phone: tel: fax: Referral ID Status Reason Start Date Expiration Date V isits Requested Visits Authorized [id number] Closed Specialty Services Required 08/27/2023 09/25/2024 1 1 Encounter Details Date Type Department Care Team (Latest Contact Info) Description 09/03/2023 8:45 AM PATTERNMAKER BENCH Office Visit [address] [place] [address] Ivan Liang MD [address] [place] [address] DR SANTIAGO [address] [place] [address] Appendix disease (Primary Dx); Abnormal CT scan, gastrointestinal tract Social History Tobacco Use Types Packs/Day Years [...] of Binge Drinking Not on file 11/2023 PHQ-2 Answer Date Recorded PHQ-2 Total Score (If total score is 3 or more points, staff should administer the PHQ-9) 0 08/09/2021 Personal Safety Answer Date Recorded Getting School Help Needed Denies 08/10 Comments No Sex and Gender Information Value Date Recorded Sex Assigned at Not on file Legal Sex Female 10:06 AM PATTERNMAKER BENCH Gender Identity Female 06/17/2024 7:02 AM CDT Sexual Orientation Not on file documented as of this encounter Last Filed Vital Signs Vital Sign Reading Time Taken Comments Blood Pressure 107/71 09/03/2023 8:33 AM PATTERNMAKER BENCH Pulse 68 09/03/2023 8:33 AM PATTERNMAKER BENCH Temperature 36.2 ??C (97.1 ??F) 09/03/2023 8:33 AM CS T Respiratory Rate - - Oxygen Saturation 99% 09/03/2023 8:33 AM PATTERNMAKER BENCH Inhaled Oxygen Concentration - - Weight 59.3 kg (130 lb 11.2 oz) 09/03/2023 8:33 AM PATTERNMAKER BENCH Height 162.6 cm (5' 4 ) 09/03/2023 8:33 AM PATTERNMAKER BENCH Body Mass Index 22.43 09/03/2023 8:33 AM PATTERNMAKER BENCH documented in this encounter Progress Notes * Ivan Liang MD - 09/03/2023 8:45 AM CST Images from the original note were not included. Surgery Consult Subjective: Patient Name: Sarahy Gill Date of Visit: 09/03/23 HPI: Sarahy Gill is a 53 y.o. female presenting for surgical evaluation of right lower quadrant pain. This has been ongoing for the past few months. This is sharp at times but can also be dull.It does not seem to radiate. There does not seem to be a clear-cut cause to trigger the symptoms. The attacks seem to be increasing in frequency over the past few months. Chief Complaint: Consult (Abnormal CT scan GI tract ) Referred by: Parmjit Dai MD Allergies as of 09/03/2023 - Reviewed 09/03/2023 Allergen Reaction Noted Compazine [prochlorperazine] Other (See comments) 02/23/2018 Phenergan [promethazine] Agitation 08/08/2021 Reglan [metoclopramide] Other (See comments) 09/24/2021 Zithromax [azithromycin] Stomach upset 02/23/2018 Current Outpatient Medications: albuterol HFA (PROVENTIL HFA,VENTOLIN HFA,PROAIR HFA) 90 mcg/actuation inhaler apixaban (ELIQUIS) 5 mg tablet atorvastatin (LIPITOR) 40 mg tablet baclofen (LIORESAL) 10 mg tablet dicyclomine (BENTYL) 20 mg tablet famotidine (PEPCID) 20 mg tablet lubiprostone (AMITIZA) 24 mcg capsule metoprolol XL (TOPROL-XL) 25 mg extended release tablet nortriptyline (PAMELOR) 25 mg capsule ondansetron (ZOFRAN) [address] (PROTONIX) 40 mg EC tablet SUMAtriptan (IMITREX) 50 mg tablet flecainide (TAMBOCOR) 100 mg tablet Past Medical History: Diagnosis Date A-fib (CMS/HCC) (HCC) Anxiety Arthritis Bipolar affect, depressed (HCC) Chronic nausea 09/24/2021 Colon polyp Cyclic vomiting syndrome Depression Headache, tension-type Hypertension Hypotension IBS (irritable bowel syndrome) Migraine Nausea and vomiting, unspecified vomiting type 12/18/2021 Stroke ([facility]) Weight loss Past Surgical [...] not drink Frequency of Binge Drinking: Never Review of Systems Constitutional: Negative for activity change. HENT: Negative for hearing loss and sore throat. Eyes: Negative for visual disturbance. Respiratory: Negative for cough and shortness of breath. Cardiovascular: Negative for chest pain. Gastrointestinal: Positive for abdominal pain Genitourinary: Negative for dysuria. Musculoskeletal: Negative for back pain. Neurological: Negative for dizziness and syncope. Psychiatric/Behavioral: Negative for agitation and confusion. Imaging: CT scan of the abdomen pelvis was personally reviewed. There was no free air or pneumatosis. There is a significant stool burden throughout the entire colon. There was some mild thickening of the appendix with a possible small appendicolith. Objective: Vitals BP 107/71 (BP Location: Right arm, Patient Position: Sitting) Pulse 68 Temp 36.2 ??C (97.1 ??F) Ht 162.6 cm (5' 4 ) Wt 59.3 kg (130 lb 11.2 oz) SpO2 99% BMI 22.43 kg/m?? Physical Exam Constitutional: The patient is oriented to person, place, and time. Head: Normocephalic and atraumatic. Eyes: Pupils are equal, round, and reactive to light. Neck: No thyromegaly present. Cardiovascular: Normal rate and regular rhythm. Pulmonary/Chest: Effort normal and breath sounds normal. Abdominal: Soft. non distended. Right lower quadrant tenderness Genitourinary: Rectum normal. Musculoskeletal: Normal range of motion. Neurological: alert and oriented to person, place, and time. Skin: Skin is warm and dry. Psychiatric: normal mood and affect. Assessment/Plan Diagnoses and all orders for this visit: Appendix disease (Primary) Assessment & Plan: I will discuss her case with GI. [...] She is in understanding of the plan. Abnormal CT scan, gastrointestinal tract - Ambulatory referral to General Surgery Ivan Liang MD 8:54 AM 09/03/2023 ERNMAKER BENCH documented in this encounter Miscellaneous Notes * Assessment & Plan Note - Ivan Liang MD - 09/03/2023 8:54 AM CSTAssociated Problem(s): Appendix disease I will discuss her case with GI. [...] She is in understanding of the plan. ERNMAKER BENCH documented in this encounter Plan of Treatment Upcoming Encounters Date Type Department Care Team (Latest Contact Info) Description 09/07/2024 8:30 AM PATTERNMAKER BENCH Hospital Encounter [facility] [address] [place] [phone] Forest Catherine MD [address] [address] 09/07/2024 8:30 AM PATTERNMAKER BENCH - 09/07/2024 9:00 AM PATTERNMAKER BENCH Surgery [facility] [address] [place] [phone] Forest Catherine MD [address] [address] EGD w/Endo Flip & YI placement Scheduled Procedures Name Priority Associated Diagnoses Date/Ti me ESOPHAGOGASTRODUODENOSCOPY Hiatal hernia Gastroesophageal reflux disease, unspecified whether esophagitis present 09/07/2024 8:30 AM PATTERNMAKER BENCH documented as of this encounter Visit Diagnoses Diagnosis Appendix disease- Primary Other and unspecified diseases of appendix Abnormal CT scan, gastrointestinal tract Hiatal hernia Diaphragmatic hernia without mention of obstruction or gangrene Gastroesophageal reflux disease, unspecified whether esophagitis present documented in this encounter Orders Outpatient Referral Count Last Ordered Date Fir st Ordered Date AMB REFERRAL TO GENERAL SURGERY 1 4 documented in this encounter Care Teams Rn On Site Relationship Specialty Start Date End Date Parmjit Dai MD PCP - General 12/31/20 Mere Landa NP Nurse Practitioner 02/07/20 Tico Burton MD Surgeon General Surgery 08/09/21 documented as of this encounter
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
--- OUTSIDE RECORDS SUMMARY | 2024-08-16 04:33 | XMS_ITS | Encounter Summary ---
Author Organization [facility] Healthcare Address [address] [place] [address] Care Team Providers Care Rn Orthopaedic Name Role Phone Mere Landa NP Unavailable [phone] Parmjit Dai MD Primary Care Provider [phone] Tico Burton MD Unavailable [phone] Encounter Details Date Type Department Care Team (Late st Contact Info) Description 06/08/2023 Orders Only [facility] Medical [facility] Gastroenterology at [address] [place] [address] Richard Bowman NP [address] [place] [address] [address] [place] [address] Anemia, unspecified type (Primary Dx) Social History Tobacco Use Types [...] on file Legal Sex Female 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 Gender Identity Female 06/17/2024 7:02 AM CDT Sexual Orientation Not on file documented as of this encounter Plan of Treatment Upcoming Encounters Date Type Department Care Team (Latest Contact Info) Description 09/07/2024 8:30 AM PULVERIZING AND SIFTING OPERATOR Hospital Encounter [facility] [address] [place] [phone] Forest Catherine MD [address] [id number] 09/07/2024 8:30 AM PULVERIZING AND SIFTING OPERATOR - 09/07/2024 9:00 AM PULVERIZING AND SIFTING OPERATOR Surgery [facility] [address] [place] [phone] Forest Catherine MD [address] [id number] EGD w/Endo Flip & YI placement Scheduled Procedures Name Priority Associated Diagnoses Date/Ti me ESOPHAGOGASTRODUODENOSCOPY Hiatal hernia Gastroesophageal reflux disease, unspecified whether esophagitis present 09/07/2024 8:30 AM PULVERIZING AND SIFTING OPERATOR documented as of this encounter Results * Guaiac occult blood, fecal, non-neoplasm (06/10/2023 11:50 AM CDT) Guaiac occult blood, fecal Negative Negative Stool 06/10/2023 11:5 0 AM CDT 06/10/2023 1:48 PM CDT Narrative BREN GONZALEZ ([place]) - 06/10/2023 1:53 PM CDT Yes, x2 please. Richard Bowman PAINTING MANAGER LAB BODY FLUIDS AND STOOLS ORDERABLES Final Result BREN GONZALEZ ([place]) 1 [facility] [place] [address] * Guaiac occult blood, fecal, non-neoplasm (06/10/2023 11:50 AM CDT) Guaiac occult blood, fecal Negative Negative Stool 06/10/2023 11:5 0 AM CDT 06/10/2023 1:48 PM CDT Narrative BREN GONZALEZ ([place]) - 06/10/2023 1:53 PM CDT Yes x2 please. Richard Bowman PAINTING MANAGER LAB BODY FLUIDS AND STOOLS ORDERABLES Final Result Performing Organization Address City/[facility] Co de Phone Number BREN GONZALEZ ([place]) 1 [facility] [place] [address] documented in this encounter Visit Diagnoses Diagnosis Anemia, unspecified type- Primary Anemia, unspecified type Hiatal hernia Diaphragmatic hernia without mention of obstruction or gangrene Gastroesophageal reflux disease, unspecified whether esophagitis present documented in this encounter Care Teams Rn Orthopaedic Relationship Specialty Start Date End Date Parmjit Dai MD PCP - General 12/31/20 Mere Lnada NP Nurse Practitioner 02/07/20 Tico Burton MD Surgeon General Surgery 08/09/21 documented as of this encounter
--- OUTSIDE RECORDS SUMMARY | 2024-08-16 04:33 | XMS_ITS | Encounter Summary ---
Author Organization [facility] Healthcare Address [address] [place] [address] Care Team Providers Care Stain Sprayer Name Role Phone Mere Landa NP Unavailable [phone] Parmjit Dai MD Primary Care Provider [phone] Tico Burton MD Unavailable [phone] Reason for Referral * MRI/CAT/PET Scan (Routine) - Closed Specialty Diagnoses / Procedures Referred By Loreta ledbetter Referred To Contact Radiology Diagnoses Chronic abdominal pain Generalized postprandial abdominal pain Procedures CTA Abdomen Pelvis Richard Bowman NP Phone: tel: fax: [address] [phone] Referral ID Status Reason Start Date Expiration Date Visits Re quested Visits Authorized [id number] Closed 07/22/2023 08/20/2024 1 1 N COATER Reason for Visit * MRI/CAT/PET Scan (Routine) - Closed Specialty Diagnoses / Procedures Referred By Loreta ledbetter Referred To Contact Radiology Diagnoses Chronic abdominal pain Generalized postprandial abdominal pain Procedures CTA Abdomen Pelvis Richard Bowman NP Phone: tel: fax: [address] [phone] Referral ID Status Reason Start Date Expiration Date Visits Re quested Visits Authorized [id number] Closed 07/22/2023 08/20/2024 1 1 Encounter Details Date Type Department Care Team (Latest Contact Info) Description 08/19/2023 9:29 AM RESIN COATER - 08/19/2023 11:59 PM RESIN COATER Hospital Encounter [facility] [address] [place] [address] Chronic abdominal pain; Generalized postprandial abdominal pain Discharge Disposition: Discharge to home or self care Social History Tobacco Use Types Packs/Day Years Used Date Smoking Tobacco: Former Cigarettes 1 1999 Smokeless Tobacco: Never Comments:off and on [...] on file Legal Sex Female 10:06 AM RESIN COATER Gender Identity Female 06/17/2024 7:02 AM CDT Sexual Orientation Not on file documented as of this encounter Medications at Time of Discharge albuterol HFA (PROVENTIL HFA,VENTOLIN HFA,PROAIR HFA) 90 mcg/actuation inhaler 2 puffs every 4 (four) hours as needed 04/03/2023 apixaban (ELIQUIS) 5 mg tablet Take 1 tablet (5 mg total) by mouth 2 (two) times a day atorvastatin (LIPITOR) 40 mg tabletIndications: hyperlipidemia Take 1 tablet (40 mg total) by [...] esophageal spasms. 90 tablet 3 08/06/2023 4 hyoscyamine (LEVSIN) 0.125 mg SL tabletIndications: Urinary Incontinence Take 1-2 tablets (0.125-0.25 mg total) by mouth 4 (four) times a day as needed for cramping (abdominal pain) 120 tablet 3 07/22/2023 3 lubiprostone (AMITIZA) 24 mcg capsule Take [...] 3 04/17/2023 4 SUMAtriptan (IMITREX) 50 mg tabletIndications: Migraine Take 1 tablet (50 mg total) by [...] Encounter Note - Richard Bowman NP - 08/19/2023 11:59 PM CST You are doing an EGD on this patient tomorrow. She has horrible IBS, but never sticks with my suggestions because they all cause abdominal pain or diarrhea. She has chronic abdominal pain that has led to several CTs, not just here, but at [place]. Please review the celiac artery and appendix abnormalities on her recent CTA and give guidance. Please discuss with patient whenever you see her tomorrow at time of her EGD. As you can see, there was a large amount of stool in her colon. N COATER documented in this encounter Plan of Treatment Upcoming Encounters Date Type Department Care Team (Latest Contact Info) Description 09/07/2024 8:30 AM RESIN COATER Hospital Encounter [facility] [address] [place] [phone] Forest Catherine MD [address] [address] 09/07/2024 8:30 AM RESIN COATER - 09/07/2024 9:00 AM RESIN COATER Surgery [facility] [address] [place] [phone] Forest Catherine MD [address] [address] EGD w/Endo Flip & YI placement Scheduled Procedures Name Priority Associated Diagnoses Date/Ti me ESOPHAGOGASTRODUODENOSCOPY Hiatal hernia Gastroesophageal reflux disease, unspecified whether esophagitis present 09/07/2024 8:30 AM RESIN COATER documented as of this encounter Procedures Procedure Name Priority Date/Time Associated Diagnosis Comments CTA ABDOMEN PELVIS W WO CONTRAST Schedule YULISSA, Read Routine (Patient lives out of area) 08/19/2023 10:53 AM RESIN COATER Chronic abdominal pain Generalized postprandial abdominal pain documented in this encounter Results * CTA Abdomen Pelvis (08/19/2023 10:53 AM RESIN COATER) Anatomical Region Laterality Modality Body N/A Computed Tomogra phy 08/19/2023 11:2 1 AM RESIN COATER Narrative 08/19/2023 11:51 AM RESIN COATER EXAM DESCRIPTION: ?? CTA ABDOMEN PELVIS REASON FOR STUDY: ?? Rule out abdominal blood vessel ischemia as a cause of her acute on chronic abdominal pain that is worse after eating. ?? Abdomen pain for 6 months / nausea ??Had hiatal hernia repaired 2 years ago ?? Surgery:GB and ?? TECHNIQUE: CTA scan of the abdomen and pelvis performed ??without and with ?? intravenous and ??without ??oral contrast using helical scanning technique with dynamic intravenous contrast injection. ??Precontrast, arterial, and portal venous phase images of the abdomen and pelvis were acquired. ?Images reviewed with lung, soft tissue and bone windows. Reconstructed coronal and sagittal MPR images reviewed. All images stored on PACS. ??3D MIP images rendered on scanning unit and reviewed at time of interpretation. ??Automated exposure control was used as a dose optimization technique for this examination. CONTRAST TYPE/DOSE: ?? 75mL of IOVERSOL 350 MG IODINE/ML INTRAVENOUS SYRINGE ?? injected via ?? intravenous COMPARISON: ?? CT abdomen pelvis 09/04/2022. REFERENCE: Unless otherwise [...] Findings Committee. J Am Kacey Radiol. 2017 Mar;14(8):4485-4697. FINDINGS: VASCULATURE: ?No dissection, aneurysm, intramural hematoma, rupture, or penetrating atherosclerotic ulcer. ?? No large vessel occlusion. CELIAC TRUNK: ?? There is a relative mild narrowing of the proximal celiac artery with slight post stenotic dilatation. ??This is best appreciated on sagittal image 55 and 56. ??This is of uncertain clinical significance. SUPERIOR MESENTERIC ARTERY: ?? No flow limiting stenosis, dissection, or aneurysm. RIGHT RENAL ARTERY: ?? No flow limiting stenosis, dissection, or aneurysm.. LEFT RENAL ARTERY: ?? No flow limiting stenosis, dissection, or aneurysm. ?? Duplicated right renal artery. INFERIOR MESENTERIC ARTERY: ?? No flow limiting stenosis, dissection, or aneurysm. AORTA: ?? No flow limiting stenosis, dissection, or aneurysm. ILIAC ARTERIES: ?? No flow limiting stenosis, dissection, or aneurysm. LOWER CHEST: ?? No significant pulmonary abnormalities. No effusion. LIVER: ?? Normal size. ??No identified cystic or solid masses. GALLBLADDER: ?? Cholecystectomy. BILE DUCTS: ?? No intrahepatic or extrahepatic ductal dilatation. SPLEEN: ?? Normal size. ??No focal lesions. PANCREAS: ?? No identified cystic or solid masses. No significant calcifications. No adjacent inflammation or peripancreatic fluid collections. Pancreatic duct not dilated. ?? ADRENALS: ?? Normal. KIDNEYS/URINARY TRACT: ?? Septated renal cyst in the upper pole right kidney measuring 1.5 cm. ?No renal calculi. ??No definable hydronephrosis. GI: ?? Appendix is very slightly thick walled with a small calculus proximally. No definite acute findings evident of the appendix. ??Please correlate with clinical factors. ??There is no bowel wall thickening or evidence for ischemic bowel. ??Large amount of formed stool throughout the colon. PERITONEUM: ?? No ascites or free air. RETROPERITONEUM: ?? No mass or adenopathy. REPRODUCTIVE: ?? No significant abnormality. MUSCULOSKELETAL: ?? Slight dextroscoliosis. OTHER: ?? No other abnormality. IMPRESSION: Mild narrowing of [...] 08/19/2023 11:51 AM - Electronically signed by ??Kolby Kay M.D. LC: NICKY D: ??08/19/2023 11:51 AM T: ??08/19/2023 11:51 AM Report ID: [id number] Reading Location: ??[id number] Procedure Note Stacy Kay MD - 08/19/2023 EXAM DESCRIPTION: CTA ABDOMEN PELVIS REASON FOR STUDY: Rule out abdominal blood vessel ischemia as a cause ofher acute on chronic abdominal pain that is worse after eating. Abdomen pain for 6 months / nausea Had hiatal hernia repaired 2 years ago Surgery:GB and TECHNIQUE: CTA scan of the abdomen and pelvis performed without and with intravenous and without oral contrast using helical scanning techniquewith dynamic intravenous contrast injection. Precontrast, arterial, and portal venous phase images of the abdomen and pelvis were acquired. Images reviewed with lung, soft tissue and bone windows. Reconstructed coronaland sagittal MPR images reviewed. All images stored on PACS. 3D MIP images rendered on scanning unit and reviewed at time of interpretation.Automated exposure control was used as a dose optimization technique for this examination. CONTRAST TYPE/DOSE: 75mL of IOVERSOL 350 MG IODINE/ML INTRAVENOUSSYRINGE injected via intravenous COMPARISON: CT abdomen pelvis 09/04/2022. REFERENCE: Unless otherwise specified, no follow-up imaging is recommendedfor incidental renal and adrenal lesions per consensus recommendations basedon imaging criteria. Further lab evaluation could be pursued based onclinical findings. Management of the Incidental Renal Mass on CT: A White Paper of the ACR Incidental Findings Committee. J Am Kacey Radiol. 2018 Oct;15(2):264-273. Management of Incidental Adrenal Masses: A White Paper of the ACRIncidental Findings Committee. J Am Kacey Radiol. 2017 Mar;14(8):5138-8575. FINDINGS: VASCULATURE: No dissection, aneurysm, intramural hematoma, [...] Septated renal cyst in the upper pole rightkidney measuring 1.5 cm. No renal calculi. No definable hydronephrosis. GI: Appendix is very slightly thick walled with a small calculusproximally. No definite acute findings evident of the appendix. Please correlatewith clinical factors. There is no bowel wall thickening or evidence forischemic bowel. Large amount of formed stool throughout [...] definite acute findings of the appendix. Please correlatewith clinical factors. No aortic aneurysm or dissection. No acute finding. THIS IS AN ELECTRONICALLY VERIFIED FINAL REPORT 08/19/2023 11:51 AM - Electronically signed by Kolby Kay M.D. LC: NICKY Report ID: [id number] Reading Location: [place] [address] [facility] DEVELOPMENT TRAINER IMG CT PROCEDURES F inal Result documented in this encounter Visit Diagnoses Diagnosis Chronic abdominal pain Abdominal pain, unspecified site Generalized postprandial abdominal pain Hiatal hernia Diaphragmatic hernia without mention of obstruction or gangrene Gastroesophageal reflux disease, unspecified whether esophagitis present documented in this encounter Administered Medications Inactive Administered Medications - up to 3 most recent administrations Medication Order MAR Action Action Date Dose Rate Site ioversoL (OPTIRAY 350) syringe 75 mL 75 mL, intravenous, Once in imaging, contrast, Starting on Thu08/19/23 at 1027, For 1 dose Contrast Given 08/19/2023 10:28 AM RESIN COATER 75 mL documented in this encounter Orders Medications Ordered That Rg ht Not Have Been Administered Count Last Ordered Date First Ordered Date ioversoL (OPTIRAY 350) syringe 75 mL 1 08/01 documented in this encounter Care Teams Stain Sprayer Relationship Specialty Start Date End Date Parmjit Dai MD PCP - General 12/31/20 Mere Landa NP Nurse Practitioner 02/07/20 Tico Burton MD Surgeon General Surgery 08/09/21 documented as of this encounter
--- OUTSIDE RECORDS SUMMARY | 2024-08-16 04:33 | XMS_ITS | Encounter Summary ---
Author Organization [facility] Healthcare Address [address] [place] [address] Care Team Providers Care General Milling Superintendent Name Role Phone Mere Landa NP Unavailable [phone] Parmjit Dai MD Primary Care Provider [phone] Tico Burton MD Unavailable [phone] Encounter Details Date Type Department Care Team (Late st Contact Info) Description 06/08/2023 2:15 PM CDT Lab [address] Leukocytosis, unspecified type Social History Tobacco Use [...] on file Legal Sex Female 10:06 AM EXTENSION CLERK Gender Identity Female 06/17/2024 7:02 AM CDT Sexual Orientation Not on file documented as of this encounter Miscellaneous Notes * Result Encounter Note - Richard Bowman NP - 06/08/2023 3:49 PM CDT The following [email or web address] message was sent to patient discussing results: Hi Nkechi, Your white blood cell count has returned to normal. You do have mild anemia that has slightly worsened since your ER visit. Hemoglobin is 9.3 and I believe it was in the 10s at that time. I am going to order stool test to check your stool for blood. Please obtain the supplies you need to collect through our lab downstairs. I am placing those orders now. Please collect from two different stool samples. If the stool testing is negative, then I will have you please follow-up with your PCP for additional evaluation/management of the anemia. Please let me know if you have any questions or concerns. Richard Bowman NP documented in this encounter Plan of Treatment Upcoming Encounters Date Type Department Care Team (Latest Contact Info) Description 09/07/2024 8:30 AM [facility] Hospital Encounter [facility] [address] [place] [phone] Forest Catherine MD [address] [address] 09/07/2024 8:30 AM EXTENSION CLERK - 09/07/2024 9:00 AM [facility] Surgery [facility] [address] [place] [address] [phone] Forest Catherine MD [address] [address] EGD w/Endo Flip & YI placement Scheduled Procedures Name Priority Associated Diagnoses Date/Ti me ESOPHAGOGASTRODUODENOSCOPY Hiatal hernia Gastroesophageal reflux disease, unspecified whether esophagitis present 09/07/2024 8:30 AM EXTENSION CLERK documented as of this encounter Procedures Procedure Name Priority Date/Time Associated Diagnosis Comments DIFFERENTIAL AUTO Routine 06/08/2023 2:1 4 PM CDT Leukocytosis, unspecified type CBC WITH AUTO DIFFERENTIAL Routine 06/08/2023 2:14 PM CDT Leukocytosis, unspecified type documented in this encounter Results * (ABNORMAL) Differential, auto (06/08/2023 2:14 PM CDT) Neutrophil abs 3.2 1.7 - 6.5 K/cumm [facility] Imm gran abs 0.0 0.0 - 0.1 K/cumm [facility] Lymphocyte abs 2.5 0.8 - 3.3 K/cumm [facility] Monocyte abs 0.9(H) 0.2 - 0.8 K/cumm [facility] Eosinophil abs 0.2 0.0 - 0.5 K/cumm [facility] Basophil abs 0.0 0.0 - 0.1 K/cumm [facility] Neutrophil pct 46.7 % [facility] Comment: Interpretive [...] was last revised on 2017. Lymphocyte pct 37.1 % [facility] Comment: Interpretive Data Percent cell count reference ranges are not reported, since discordance with absolute values may lead to misinterpretation of CBC data. Current Interpretive Data was last revised on 2017. Monocyte pct 12.8 % [facility] Comment: Interpretive Data Percent cell count reference ranges are not reported, since discordance with absolute values may lead to misinterpretation of CBC data. Current Interpretive Data was last revised on 2017. Eosinophil pct 2.7 % [facility] Comment: Interpretive [...] Data was last revised on 2017. Blood 06/08/2023 2:14 PM CDT 06/08/2023 3:33 PM CDT Richard Bowman LEG MAN LAB BLOOD ORDERABLE S Final Result [facility] 1 [facility] [place] [address] * (ABNORMAL) CBC with auto differential (06/08/2023 [...] ([place]) MCHC 30.5(L) 32.3 - 35.7 g/dL [facility] RDW CV 15.5(H) 11.1 - 14.9 % [facility] RDW SD 47.6 35.7 - 48.1 fL [facility] NRBC abs 0.00 0.00 - 0.01 K/cumm [facility] Blood 06/08/2023 2:14 PM CDT 06/08/2023 3:33 PM CDT Richard Bowman LEG MAN LAB BLOOD ORDERABLE S Final Result [facility] 1 [facility] Department [place] [address] documented in this encounter Visit Diagnoses Diagnosis Leukocytosis, unspecified type Hiatal hernia Diaphragmatic hernia without mention of obstruction or gangrene Gastroesophageal reflux disease, unspecified whether esophagitis present documented in this encounter Care Teams General Milling Superintendent Relationship Specialty Start Date End Date Parmjit Dai MD PCP - General 12/31/20 Mere Landa NP Nurse Practitioner 02/07/20 Tico Burton MD Surgeon General Surgery 08/09/21 documented as of this encounter
--- OUTSIDE RECORDS SUMMARY | 2024-08-16 04:33 | XMS_ITS | Encounter Summary ---
Author Organization [facility] Healthcare Address [address] [place] [address] Care Team Providers Care Geology Teacher Name Role Phone Mere Landa NP Unavailable [phone] Parmjit Dai MD Primary Care Provider [phone] Tico Burton MD Unavailable [phone] Reason for Referral * Diagnostic Imaging (Routine) - Closed Specialty Diagnoses / Procedures Referred By Loreta ledbetter Referred To Contact Diagnoses Gastroesophageal reflux disease with esophagitis without hemorrhage Chronic nausea Cough, unspecified type Procedures [place] Esophagram, Double Contrast Richard Bowman NP Phone: tel: fax: [address] [address] Referral ID Status Reason Start Date Expiration Date Visits Re quested Visits Authorized [id number] Closed 07/15/2023 08/13/2024 1 1 UITRY NEGATIVE INSPECTOR Reason for Visit * Diagnostic Imaging (Routine) - Closed Specialty Diagnoses / Procedures Referred By Loreta ledbetter Referred To Contact Diagnoses Gastroesophageal reflux disease with esophagitis without hemorrhage Chronic nausea Cough, unspecified type Procedures FL Esophagram, Double Contrast Richard Bowman NP Phone: tel: fax:[phone] [address] Referral ID Status Reason Start Date Expiration Date Visits Re quested Visits Authorized [id number] Closed 07/15/2023 08/13/2024 1 1 Encounter Details Date Type Department Care Team (Latest Contact Info) Description 08/04/2023 8:53 AM CIRCUITRY NEGATIVE INSPECTOR - 08/04/2023 11:59 PM CIRCUITRY NEGATIVE INSPECTOR Hospital Encounter [facility] [address] [place] [address] Rad, Amh Fluoro Gastroesophageal reflux disease with esophagitis without hemorrhage; Chronic nausea; Cough, unspecified type Discharge Disposition: Discharge to home [...] on file Legal Sex Female 10:06 AM CIRCUITRY NEGATIVE INSPECTOR Gender Identity Female 06/17/2024 7:02 AM [...] tablet (25 mg total) by mouth daily hyoscyamine (LEVSIN) 0.125 mg SL tabletIndications: Urinary [...] (Latest Contact Info) Description 09/07/2024 8:30 AM [facility] Hospital Encounter [facility] [address] [place] [phone] Forest Catherine MD [address] [address] 09/07/2024 8:30 AM CIRCUITRY NEGATIVE INSPECTOR - 09/07/2024 9:00 AM CIRCUITRY NEGATIVE INSPECTOR Surgery [facility] [address] [place] [phone] Forest Catherine MD [address] [address] EGD w/Endo Flip & YI placement Scheduled Procedures Name Priority Associated Diagnoses Date/Ti me ESOPHAGOGASTRODUODENOSCOPY Hiatal hernia Gastroesophageal reflux disease, unspecified whether esophagitis present 09/07/2024 8:30 AM CIRCUITRY NEGATIVE INSPECTOR documented as of this encounter Procedures Procedure Name Priority Date/Time Associated Diagnosis Comments FL ESOPHAGRAM, DOUBLE CONTRAST Schedule Routine, Read Routine (OP Routine) 08/04/2023 9:02 AM CIRCUITRY NEGATIVE INSPECTOR Gastroesophageal reflux disease with esophagitis without hemorrhage Chronic nausea Cough, unspecified type documented in this encounter Results * FL Esophagram, Double Contrast (08/04/2023 9:02 AM CIRCUITRY NEGATIVE INSPECTOR) Anatomical Region Laterality Modality Body N/A Radio Fluoroscop y 08/04/2023 11:5 8 AM CIRCUITRY NEGATIVE INSPECTOR Narrative 08/04/2023 12:16 PM CIRCUITRY NEGATIVE INSPECTOR EXAM DESCRIPTION: ?? FL ESOPHAGRAM BARIUM SWALLOW TO STOMACH, DOUBLE CONTRAST REASON FOR STUDY: ?? Significant GERD and cough. If you can see the intestines, please comment on if she appears to have a lot of poop on board..., How significant is GERD? ??Any concerns for hiatal hernia or esophageal dysmotility? COMPARISON: CT abdomen pelvis 09/04/2022 RADIATION DOSE: Dose: ??81.5 ?? mGy Reference Air Kerma (Ka,r) TECHNIQUE: Patient ingested effervescent granules followed by thick and thin barium. FINDINGS: ESOPHAGEAL MOTILITY: ?? Mild tertiary and non-pulsatile contractions of the esophagus were noted. ??There appears to be a mid esophageal leftward directed diverticulum. ESOPHAGEAL MUCOSA: ?? No mass or ulceration appreciated. GASTRO-ESOPHAGEAL JUNCTION: ?? Gastroesophageal junction was located below the diaphragm and there is no evidence of a hiatal hernia. ??There was mild gastroesophageal reflux with provocative maneuvers. STOMACH: ?? There appears to be an outpouching of the fundus projecting to the right which most likely represents a gastric diverticulum . ??Otherwise the stomach is unremarkable. GASTRIC OUTLET: ?? No delay in emptying. ??Normal pylorus. DUODENAL BULB: ?? Normal distention. No spasm or ulceration. DUODENUM: ?? Mucosa normal. ??No extrinsic masses or malrotation. PROXIMAL SMALL BOWEL: ?? Mucosa normal. ??No extrinsic masses or malrotation. NON-GI TRACT STRUCTURES: ?? No significant finding. OTHER: ?? On the operations officer afloat radiograph there was no evidence of a high stool burden to suggest constipation as clinically queried. IMPRESSION: 1. ?? No evidence of hiatal hernia. ??Mild gastroesophageal reflux with provocative maneuvers. 2. ?? There appears to be an outpouching of the gastric fundus projecting to the right which may represent a gastric diverticulum. 3. ?? Mild tertiary and non pulsatile esophageal contractions. THIS IS AN ELECTRONICALLY VERIFIED FINAL REPORT 08/04/2023 12:16 PM - Electronically signed by ??Ken Gonsales M.D. MM: MM D: ??08/04/2023 12:16 PM T: ??08/04/2023 12:16 PM Report ID: [id number] Reading Location: ??[id number] Procedure Note Ken Gonsales MD - 08/04/2023 EXAM DESCRIPTION: FL ESOPHAGRAM BARIUM SWALLOW TO STOMACH, DOUBLECONTRAST REASON FOR STUDY: Significant GERD and cough. If you can see theintestines, please comment on if she appears to have a lot of poop on board..., How significant is GERD? Any concerns for hiatal hernia or esophageal dysmotility? COMPARISON: CT abdomen pelvis 09/04/2022 RADIATION DOSE: Dose: 81.5 mGy Reference Air Kerma (Ka,r) TECHNIQUE: Patient ingested effervescent granules followed by thick andthin barium. FINDINGS: ESOPHAGEAL MOTILITY: Mild tertiary and non-pulsatile contractions of the esophagus were noted. There appears to be a mid esophageal leftwarddirected diverticulum. ESOPHAGEAL MUCOSA: No mass or ulceration appreciated. GASTRO-ESOPHAGEAL JUNCTION: Gastroesophageal junction was located belowthe diaphragm and there is no evidence of a hiatal hernia. There was mild gastroesophageal reflux with provocative maneuvers. STOMACH: There appears to be an outpouching of the fundus projecting tothe right which most likely represents a gastric diverticulum . Otherwise the stomach is unremarkable. GASTRIC OUTLET: No delay in emptying. Normal pylorus. DUODENAL BULB: Normal distention. No spasm or ulceration. DUODENUM: Mucosa normal. No extrinsic masses or malrotation. PROXIMAL SMALL BOWEL: Mucosa normal. No extrinsic masses ormalrotation. NON-GI TRACT STRUCTURES: No significant finding. OTHER: On the operations officer afloat radiograph there was no evidence of a high stoolburden to suggest constipation as clinically queried. IMPRESSION: 1. No evidence of hiatal hernia. Mild gastroesophageal reflux with provocative maneuvers. 2. There appears to be an outpouching of the gastric fundus projectingto the right which may represent a gastric diverticulum. 3. Mild tertiary and non pulsatile esophageal contractions. THIS IS AN ELECTRONICALLY VERIFIED FINAL REPORT 08/04/2023 12:16 PM - Electronically signed by Ken Gonsales M.D. MM: MM Report ID: [id number] Reading Location: [place] [address] [facility] Natalia Bilderback PUTTY PATCHER IMG FLUOROSCOPY PRO CEDURES Final Result documented in this encounter Visit Diagnoses Diagnosis Gastroesophageal reflux disease with esophagitis without hemorrhage Chronic nausea Nausea alone Cough, unspecified type Hiatal hernia Diaphragmatic hernia without mention of obstruction or gangrene Gastroesophageal reflux disease, unspecified whether esophagitis present documented in this encounter Administered Medications Inactive Administered Medications - up to 3 most recent administrations Medication Order MAR Action Action Date Dose Rate Site barium sulfate (E-Z DISK) 700 mg tablet 700 mg 700 mg, oral, Once in imaging, contrast, Starting on Thu08/04/23 at 0902, For 1 dose Contrast Given 08/04/2023 9:05 AM CIRCUITRY NEGATIVE INSPECTOR 700 mg barium sulfate (E-Z-HD) 98 % suspension 135 mL 135 mL, oral, Once in imaging, contrast, Starting on Thu08/04/23 at 0902, For 1 dose Contrast Given 08/04/2023 9:06 AM CIRCUITRY NEGATIVE INSPECTOR 135 mL barium sulfate (E-Z-PAQUE) 96 % (w/w) suspension 1 Bottle 1 Bottle, oral, Once in imaging, contrast, Starting on Thu08/04/23 at 0902, For 1 dose Contrast Given 08/04/2023 9:06 AM CIRCUITRY NEGATIVE INSPECTOR 1 Bottle sod bicarbonate-citric acid-simethicone (E-Z GAS) (EZ-GAS II) effervescent granules 1 packet 1 packet, oral, Once in imaging, contrast, Starting on Thu08/04/23 at 0902, For 1 dose Given 08/04/2023 9:06 AM CIRCUITRY NEGATIVE INSPECTOR 1 packet documented in this encounter Care Teams Geology Teacher Relationship Specialty Start Date End Date Parmjit Dai MD PCP - General 12/31/20 Mere Landa NP Nurse Practitioner 02/07/20 Tico Burton MD Surgeon General Surgery 08/09/21 documented as of this encounter
--- OUTSIDE RECORDS SUMMARY | 2024-08-16 04:33 | XMS_ITS | Encounter Summary ---
Author Organization [facility] Healthcare Address [address] [place] [address] Care Team Providers Care Administrative Receptionist Name Role Phone Mere Landa NP Unavailable [phone] Parmjit Dai MD Primary Care Provider [phone] Tico Burton MD Unavailable [phone] Reason for Visit * Auth/Cert (Routine) Specialty Diagnoses / Procedures Referred By Contac t Referred To Contact Diagnoses Abdominal pain Dyspepsia Abdominal pain [R10.9] Dyspepsia [R10.13] Procedures CT ESOPHAGOGASTRODUODENOSCOPY TRANSORAL DIAGNOSTIC ESOPHAGOGASTRODUODENOSCOPY Referral ID Status Reason Start Date Expiration Date Visits Re quested Visits Authorized [id number] 1 1 Encounter Details Date Type Department Care Team (Latest Contact Info) Description 08/21/2023 8:57 AM MAGAZINE GRINDER LOADER - 08/21/2023 11:18 AM MAGAZINE GRINDER LOADER Hospital Encounter [facility] [address] [place] [address] Germania Sorto MD [address] [place] [id number] Abdominal pain; Dyspepsia Discharge Disposition: Discharge to home or self [...] on file Legal Sex Female 10:06 AM MAGAZINE GRINDER LOADER Gender Identity Female 06/17/2024 7:02 AM CDT Sexual Orientation Not on file documented as of this encounter Last Filed Vital Signs Vital Sign Reading Time Taken Comments Blood Pressure 119/75 08/21/2023 11:02 AM MAGAZINE GRINDER LOADER Pulse 62 08/21/2023 11:02 AM MAGAZINE GRINDER LOADER Temperature 36.9 ??C (98.5 ??F) 08/21/2023 11:[address] Respiratory Rate 16 08/21/2023 11:02 AM MAGAZINE GRINDER LOADER Oxygen Saturation 100% 08/21/2023 11:02 AM MAGAZINE GRINDER LOADER Inhaled Oxygen Concentration - - Weight 60.8 kg (134 lb) 08/21/2023 9:12 AM MAGAZINE GRINDER LOADER Height 162.6 cm (5' 4 ) 08/21/2023 9:12 AM MAGAZINE GRINDER LOADER Body Mass Index 23 08/21/2023 9:12 AM MAGAZINE GRINDER LOADER documented in this encounter Medications at Time [...] and vomiting, unspecified vomiting type 12/18/2021 Stroke ([facility]) Weight loss Past Surgical History: Procedure Laterality [...] date: 1983 Quit date: 1999 Years since quittin.9 Smokeless tobacco: Never Tobacco [...] vomiting GI PLAN/RECOMMENDATIONS: EGD Germania Sorto MD ZINE GRINDER LOADER documented in this encounter Procedure Notes * Germania Sorto MD - 08/21/2023 9:09 AM CSTAssociated Order(s): [facility] Patient Name: Sarahy Gill Procedure Date: 08/21/2023 9:09 AM Date of : 1970 Admit Type: Outpatient Age: 53 Gender: Female Attending MD: Germania Sorto M.D. [facility] Note Status: Quiller Machine Fixer Override Patient Profile: This is a 53 [...] passed under direct vision. The Endoscope GIF-H190 [id number] was introduced through the mouth, and advanced [...] 9:09 AM Procedure Code(s): --- Professional --- 19963, Esophagogastroduodenoscopy, flexible, transoral; with biopsy, single or multiple 76139, Dilation of esophagus, by unguided sound or bougie, single or multiple passes Diagnosis Code(s): --- Professional --- K31.7, Polyp of stomach and duodenum K29.50, Unspecified chronic gastritis without bleeding R10.84, Generalized abdominal pain R13.10, Dysphagia, unspecified R11.2, Nausea with vomiting, unspecified CPT copyright 2020 [employer]. All rights reserved. The codes documented in this report are preliminary and upon rn internship review may be revised to meet current compliance requirements. Recognized by the [place] [employer] for promoting quality in endoscopy ZINE GRINDER LOADER ZINE GRINDER LOADER documented in this encounter Miscellaneous Notes * Perioperative Nursing Note - Mery Mcelroy RN - 08/21/2023 11:10 [address] GRINDER LO[address]ER Dr[address] Sorto spoke with patient regarding today's procedure. He stated patient may try to cease marijuana and may opt for appendix removal after follow up in office in August. ZINE GRINDER LOADER documented in this encounter Plan of Treatment Upcoming Encounters Date Type Department Care Team (Latest Contact Info) Description 09/07/2024 8:30 AM MAGAZINE GRINDER LOADER Hospital Encounter [facility] [address] [place] [phone] Forest Catherine MD [address] [facility] [place] [address] 09/07/2024 8:30 AM MAGAZINE GRINDER LOADER - 09/07/2024 9:00 AM MAGAZINE GRINDER LOADER Surgery [facility] [address] [place] [phone] Forest Catherine MD [address] [facility] [place] [address] EGD w/Endo Flip & YI placement Scheduled Procedures Name Priority Associated Diagnoses Date/Ti me ESOPHAGOGASTRODUODENOSCOPY Hiatal hernia Gastroesophageal reflux disease, unspecified whether esophagitis present 09/07/2024 8:30 AM MAGAZINE GRINDER LOADER documented as of this encounter Procedures Procedure Name Priority Date/Time Associated Diagnosis Comments SURGICAL PATHOLOGY STAT 08/21/2023 11:36 AM MAGAZINE GRINDER LOADER Abdominal pain Dyspepsia BOUGIE DILATION 08/21/2023 10:08 AM MAGAZINE GRINDER LOADER Abdominal pain Dyspepsia ESOPHAGOGASTRODUODENOSCOPY BIOPSY 08/21/2023 10:08 AM MAGAZINE GRINDER LOADER Abdominal pain Dyspepsia EGD 08/21/2023 9:09 AM MAGAZINE GRINDER LOADER documented in this encounter Results * Surgical pathology (08/21/2023 11:36 AM MAGAZINE GRINDER LOADER) Tissue (Gastric/Stomach biopsy) 08/21/2023 10:30 AM MAGAZINE GRINDER LOADER Tissue (Esophageal biopsy) 08/21/2023 10:30 AM MAGAZINE GRINDER LOADER Tissue (Gastric/Stomach biopsy) 08/21/2023 10:30 AM MAGAZINE GRINDER LOADER Narrative [facility] - 08/26/2023 8:34 AM MAGAZINE GRINDER LOADER EPIC results best viewed via link to PDF [facility] Department of Pathology [address] [place], [place] [id number] Note to Patients: This report may contain [...] explain the details. Final Report Patient Name: ??DAVONSARAHY Stanford Address: ??[address] [place] [address], ??[place], [place] [address] Gender: ??F : ??1970 (Age: 53) Service: ??Gastro Location: ??[facility] #: ??[id number] Patient Type: ??[facility] Accession # ?[id number] Taken: ??08/21/2023 Received: ??08/21/2023 Accessioned: ??08/21/2023 Reported: [...] and 3 mm. All in C. T.A. Emi Zuñiga P.A./Victoria Saravia M.D. REPORT IMAGES AND SCANNED DOCUMENTS, IF INCLUDED, ONLY VIEWABLE IN PDF VERSION OF REPORT The performance characteristics of some immunohistochemical stains, fluorescence in-situ hybridization tests and immunophenotyping by flow cytometry cited in this report (if any) were determined by the Surgical Pathology Department at [facility] as part of an ongoing quality control microbiologist program and in compliance with federally mandated [...] characteristics determined by the Surgical Pathology Department [facility]. ??It has not been cleared or approved by the U. S. Food and Drug Administration. Note for decalcified specimens: This assay has not been validated on decalcified tissues. Results should be interpreted with caution given the possibility of false negativity on decalcified specimens us Germania Sorto MD LAB PATHOLOGY ORDERABLES F inal Result [facility]OLOGY [facility] [address] [place] [address] * EGD (08/21/2023 9:09 AM MAGAZINE GRINDER LOADER) Anatomical Region Laterality Modality Other Narrative Procedure Note Gemrania Sorto MD - 08/21/2023 9:09 AM CST [facility] Patient Name: Sarahy Gill Procedure Date: 08/21/2023 9:09 AM Date of : 1970 Admit Type: Outpatient Age: 53 Gender: Female Attending MD: Germania Sorto M.D. Room: [facility] 1 Note Status: Quiller Machine Fixer Override Patient Profile: This is a 53 [...] passed under direct vision. The Endoscope [id number]-[id number] was introduced through the mouth, and advanced [...] 9:09 AM Procedure Code(s): --- Professional --- 39430, Esophagogastroduodenoscopy, flexible, transoral; with biopsy, single or multiple 38820, Dilation of esophagus, by unguided sound or bougie, single or multiple passes Diagnosis Code(s): --- Professional --- K31.7, Polyp of stomach and duodenum K29.50, Unspecified chronic gastritis without bleeding R10.84, Generalized abdominal pain R13.10, Dysphagia, unspecified R11.2, Nausea with vomiting, unspecified CPT copyright 2020 [employer]. All rights reserved. The codes documented in this report are preliminary and upon rn internship reviewmay be revised to meet current compliance requirements. Recognized by the [place] [employer] for promoting quality [...] Pre-Procedure (GI) Rate/Dose Verify 08/21/2023 10:13 AM MAGAZINE GRINDER LOADER 30 mL/hr New Bag 08/21/2023 9:36 AM MAGAZINE GRINDER LOADER 30 mL/hr 30 mL/hr sodium chloride 0.9% [...] Recently Administered Medications Times are shown in MAGAZINE GRINDER LOADER. Continuous Medication Order 08/19/2023 08/20/2023 08/21/2023 sodium [...] 08/21/2023 documented in this encounter Care Teams Administrative Receptionist Relationship Specialty Start Date End Date Parmjit Dai MD PCP - General 12/31/20 Mere Landa NP Nurse Practitioner 02/07/20 Tico Burton MD Surgeon General Surgery 08/09/21 documented as of this encounter
--- OUTSIDE RECORDS SUMMARY | 2024-08-16 04:33 | XMS_ITS | Encounter Summary ---
Author Organization [facility] Address [address] [place] [address] Care Team Providers Care Manual Equipment Mechanic Name Role Phone Mere Landa NP Unavailable [phone] Parmjit Dai MD Primary Care Provider [phone] Tico Burton MD Unavailable [phone] Encounter Details Date Type Department Care Team (Latest Contact Info) Description 01/21/2023 9:30 AM CDT - 01/21/2023 11:59 PM CDT Hospital Encounter [address] [phone] Irritable bowel syndrome with both constipation and diarrhea; Chronic nausea; Gastroesophageal reflux disease with esophagitis without hemorrhage; Chronic superficial gastritis without bleeding Discharge Disposition: Discharge to home or self [...] on file Legal Sex Female 10:06 AM RELATIONSHIP CONSULTANT Gender Identity Female 06/17/2024 7:02 AM [...] mg total) by mouth daily 90 tablet 1 01/15/2023 04/17/20 23 SUMAtriptan (IMITREX) 50 mg tabletIndications:M igraine [...] Encounter Note - Richard Bowman NP - 01/21/2023 11:59 PM CDT See my chart comment as follows: Thank you for completing the stool testing to check for digestive issues related to the pancreas; test results were normal. CEB documented in this encounter Plan of Treatment Upcoming Encounters Date Type Department Care Team (Latest Contact Info) Description 09/07/2024 8:30 AM [facility] Hospital Encounter [facility] [address] [place] [phone] Forest Catherine MD [address] [address] 09/07/2024 8:30 AM RELATIONSHIP CONSULTANT - 09/07/2024 9:00 AM [facility] Surgery [facility] [address] [place] [phone] Forest Catherine MD [address] [address] EGD w/Endo Flip & YI placement Scheduled Procedures Name Priority Associated Diagnoses Date/Ti me ESOPHAGOGASTRODUODENOSCOPY Hiatal hernia Gastroesophageal reflux disease, unspecified whether esophagitis present 09/07/2024 8:30 AM RELATIONSHIP CONSULTANT documented as of this encounter Procedures Procedure Name Priority Date/Time Associated Diagnosis Comments PANCREATIC ELASTASE, STOOL Routine 01/21/2023 9:30 AM CDT Irritable bowel syndrome with both constipation and diarrhea Chronic nausea Gastroesophageal reflux disease with esophagitis without hemorrhage Chronic superficial gastritis without bleeding documented in this encounter Results * Pancreatic elastase, stool (01/21/2023 9:30 AM CDT) Pancreatic elastase, stool 374 >200 (Normal) mcg/g BREN GONZALEZ ([place]) Comment: Test Performed by: [facility] [address] [place] [address] Fur Blower Operator: Cheo Yuen M.D. Ph.D.; [facility]# [id number] Stool 01/21/2023 9:30 AM CDT 01/21/2023 12:19 PM CDT Richard Bowman NP LAB BODY FLUIDS AND STOOLS ORDERABLES Final Result BREN GONZALEZ ([place]) 1 [facility] [place] [address] documented in this encounter Visit Diagnoses Diagnosis Irritable bowel syndrome with both constipation and diarrhea Chronic nausea Nausea alone Gastroesophageal reflux disease with esophagitis without hemorrhage Chronic superficial gastritis without bleeding Hiatal hernia Diaphragmatic hernia without mention of obstruction or gangrene Gastroesophageal reflux disease, unspecified whether esophagitis present documented in this encounter Care Teams Manual Equipment Mechanic Relationship Specialty Start Date End Date Parmjit Dai MD PCP - General 12/31/20 Mere Landa NP Nurse Practitioner 02/07/20 Tico Burton MD Surgeon General Surgery 08/09/21 documented as of this encounter
--- OUTSIDE RECORDS SUMMARY | 2024-08-16 04:33 | XMS_ITS | Encounter Summary ---
Author Organization [facility] Healthcare Address [address] [place] [address] Care Team Providers Care Small Offset Printer Name Role Phone Mere Landa NP Unavailable [phone] Parmjit Dai MD Primary Care Provider [phone] Tico Burton MD Unavailable [phone] Encounter Details Date Type Department Care Team (Late st Contact Info) Description 08/18/2023 Telephone [facility] [address] [place] [address] Kalani Rojas, RT Social History Tobacco Use Types Packs/Day Years [...] on file Legal Sex Female 10:06 AM STOCK DRIER TENDER Gender Identity Female 06/17/2024 7:02 AM CDT Sexual Orientation Not on file documented as of this encounter Miscellaneous Notes * Telephone Encounter - Kalani Rojas RT - 08/18/2023 10:22 AM CST Confirmed appt K DRIER TENDER documented in this encounter Plan of Treatment Upcoming Encounters Date Type Department Care Team (Latest Contact Info) Description 09/07/2024 8:30 AM STOCK DRIER TENDER Hospital Encounter [facility] [address] [place] [phone] Forest Catherine MD [address] [address] 09/07/2024 8:30 AM STOCK DRIER TENDER - 09/07/2024 9:00 AM STOCK DRIER TENDER Surgery [facility] [address] [place] [phone] Forest Catherine MD [address] [address] EGD w/Endo Flip & YI placement Scheduled Procedures Name Priority Associated Diagnoses Date/Ti me ESOPHAGOGASTRODUODENOSCOPY Hiatal hernia Gastroesophageal reflux disease, unspecified whether esophagitis present 09/07/2024 8:30 AM STOCK DRIER TENDER documented as of this encounter Visit Diagnoses Not on filedocumented in this encounter Care Teams Small Offset Printer Relationship Specialty Start Date End Date Parmjit Dai MD PCP - General 12/31/20 Mere Landa NP Nurse Practitioner 02/07/20 Tico Burton MD Surgeon General Surgery 08/09/21 documented as of this encounter
--- OUTSIDE RECORDS SUMMARY | 2024-08-16 04:33 | XMS_ITS | Encounter Summary ---
Author Organization [facility] Address [address] [facility] [address] [place] [address] Care Team Providers Care Information Specialist Name Role Phone Mere Landa NP Unavailable [phone] Parmjit Dai MD Primary Care Provider [phone] Tico Burton MD Unavailable [phone] Reason for Visit * Reason Comments Follow-up Patient is here toda y for a 4 month follow up for IBS&GERD&Nausea. Patient reports having abdominal cramping for the past 2 days. Abdominal Cramping Encounter Details Date Type Department Care Team (Latest Contact Info) Description 04/17/2023 9:00 AM CDT Office Visit [facility] Gastroenterology at [address] [place] [address] Richard Bowman NP [address] [place] [address] [address] [place] [address] Irritable bowel syndrome with both constipation and diarrhea (Primary Dx); Chronic nausea; Gastroesophageal reflux disease with esophagitis without hemorrhage; Chronic superficial gastritis without bleeding; History of repair of hiatal hernia; History of colonoscopy with polypectomy; Slow transit constipation Social History Tobacco Use Types Packs/Day Years Used Date Smoking Tobacco: Former Cigarettes 1 4 - 1999 Smokeless Tobacco: Never Tobacco Cessation:Counseling [...] on file Legal Sex Female 10:06 AM PLYWOOD STOCK GRADER Gender Identity Female 06/17/2024 7:02 AM CDT Sexual Orientation Not on file documented as of this encounter Last Filed Vital Signs Vital Sign Reading Time Taken Comments Blood Pressure 101/66 04/17/2023 9:00 AM CDT Pulse 73 04/17/2023 9:00 AM CDT Temperature - - Respiratory Rate - - Oxygen Saturation 98% 04/17/2023 9:00 AM CDT Inhaled Oxygen Concentration - - Weight 65.5 kg (144 lb 4.8 oz) 04/17/2023 9:00 A M CDT Height 162.6 cm (5' 4 ) 04/17/2023 9:00 AM CDT Body Mass Index 24.77 04/17/2023 9:00 AM CDT documented in this encounter Patient Instructions * Patient Instructions* Richard Bowman NP - 04/17/2023 9:00 AM CDT Increase your 100 mg docusate stool softener to taking 2 twice daily. Take with food to avoid nausea. If that does not help, add in 1 capful of Miralax a few times weekly, but you can do it daily if you need to. Senna is the medication that really helps with moving stool through the colon so you can take 2 of these a few times weekly if you need to! If you need to, you can take 1-2 magnesium based dulcolax chews a few times weekly to help with better bowel movements. Continue Amitiza/lubiprostone, Protonix, famotidine, Zofran, nortriptyline, Gas- X and Bentyl without change. documented in this encounter Ordered Prescriptions Prescription Sig Dispense Quantity Refills Last Filled Start Date End Date dicyclomine (BENTYL) 20 mg tablet Take 1 tablet (20 mg total) by mouth 4 (four) times a day as needed (abdominal pain/cramping) 360 capsule 3 04/17/2023 famotidine (PEPCID) 20 mg tablet Take 1 tablet (20 mg total) by mouth daily as needed for indigestion or heartburn 180 tablet 3 04/17/2023 lubiprostone (AMITIZA) 24 mcg capsule Take 1 capsule (24 mcg total) by mouth 2 (two) times a day with meals 180 capsule 3 04/17/2023 11/13/[address] (PROTONIX) 40 mg EC tablet Take 1 tablet (40 mg total) by mouth daily 90 tablet 3 04/17/2023 11/13/19 24 nortriptyline (PAMELOR) 25 mg capsule Take 1 capsule (25 mg total) by mouth nightly 90 capsule 3 04/17/2023 11/13/19 24 ondansetron ODT (ZOFRAN-ODT) 8 mg disintegrating tablet Take 1 tablet (8 mg total) by mouth every 6 (six) hours as needed for nausea or vomiting 20 tablet 11 04/17/2023 05/29/20 23 documented in this encounter Progress Notes * Richard Bowman NP - 04/17/2023 9:00 AM CDT Images from the original note were not included. PATIENT DEMOGRAPHICS Sarahy Gill is a 53 y.o. White female. PATIENT'S CARE TEAM Patient Care Team: Parmjit Dai MD as PCP - General Mere Landa V. MILL MANAGER (Nurse Practitioner) Tico Burton MD as Surgeon (General Surgery) CHIEF COMPLAINT Chief Complaint Patient presents with Follow-up Patient is here today for a 4 month follow up for IBS&GERD&Nausea. Patient reports having abdominal cramping for the past 2 days. Abdominal Cramping HPI/ROS New or existing patient visit: Existing. Referring Provider: Parmjit Dai MD Nkechi is here today for routine GI follow up. WILLEM with 12/21; weight is down 5 lbs since that time. Following last office visit pancreatic elastase levels came back normal. Her chronic nausea is currently well controlled on p.r.n. Zofran and Gas-X. Heartburn and reflux are well controlled on famotidine 20 mg b.i.d. p.r.n. and Protonix 40 mg daily, but she does not feel like she can reduce fromdaily PPI use. Her IBS that is constipation predominant is improving, but not quite well controlled. She is definitely having much more good days than bad days. She continues on Amitiza 24 mcg b.i.d.and two Colace stool softeners nightly. She takes senna as needed, but still has some issues with the constipation being problematic. She sometimes has cramping and bloating. She uses Gas-X for the bloating and cramping as needed. She uses Bentyl as needed for the more severe cramping, but uses it sparingly as she knows it can contribute to constipation. Her chronic IBS symptoms are less bothersome on nortriptyline so she would like to continue it at 25 mg at HS. She has made appropriate dietary changes that have helped her IBS and GERD as well. EGD in early showed mild chronic inactive [...] active colitis issue. She has not been having any diarrhea, melena, or hematochezia. She took a course of doxycycline several months ago to cover for SIBO, but it did not have a positive impact on her symptoms. Gallbladder previously surgically removed. Celiac screening earlier this year was negative. No NSAID or aspirin use. Chronically anticoagulated on Eliquis. Former smoker. Vapes nicotine. Denies alcohol and drug use other than occasional marijuana use. PHYSICAL EXAM BP 101/66 (BP Location: Left arm, Patient Position: Sitting) Pulse 73 Ht 162.6 cm (5' 4 ) Wt 65.5 kg (144 lb 4.8 oz) SpO2 98% BMI 24.77 kg/m?? No LMP recorded. Patient is postmenopausal. [...] with both constipation and diarrhea (primary encounter diagnosis)/Slow transit constipation (K59.01) Chronic symptomatology. Constipation predominant. No recent diarrhea issues. Improving, but not well controlled. She will continue to moderate her diet and avoid triggers. She was provided the following instructions/plan to follow after today's visit: -Increase your 100 mg docusate stool softener to taking 2 twice daily. Take with food to avoid nausea. -If that does not help, add in 1 capful of Miralax a few times weekly, but you can do it daily if you need to. -Senna is the medication that really helps with moving stool through the colon so you can take 2 ofthese a few times weekly if you need to! -If you need to, you can take 1-2 magnesium based dulcolax chews a few times weekly to help with better bowel movements. - Continue Bentyl, Gas-X, and nortriptyline without change. She is aware to use the Bentyl sparingly since can contribute to constipation. (R11.0) Chronic nausea Well controlled on p.r.n. use of Zofran, which she will continue without change. She will continue to moderate her diet and avoid triggers. (K21.00) Gastroesophageal reflux disease with esophagitis without hemorrhage (K29.30) Chronic superficial gastritis without bleeding (Z98.890, Z87.19) History of repair of hiatal hernia Chronic symptomatology that is decently well controlled on Protonix 40 mg daily and famotidine b.i.d. p.r.n., which she can continue without change. She will continue to moderate her diet and avoid triggers. Long-term goal is to get her off of high-dose daily PPI use. Risks/benefits/side effects oflong-term PPI use were discussed with patient. Also reminded to avoid NSAIDs and alcohol, especially when symptoms have been flared up. (Z98.890, Z86.010) History of colonoscopy with polypectomy On a four year surveillance schedule and needs repeat colonoscopy in October of 2026. Orders Placed This Encounter ondansetron ODT (ZOFRAN-ODT) 8 mg disintegrating tablet Sig: Take 1 tablet (8 mg total) by mouth every 6 (six) hours as needed for nausea or vomiting Dispense: 20 tablet Refill: 11 4 mg dose is not working. nortriptyline (PAMELOR) 25 mg capsule Sig: Take 1 capsule (25 mg total) by mouth nightly Dispense: 90 capsule Refill: [address] (PROTONIX) 40 mg EC tablet Sig: Take 1 tablet (40 mg total) by mouth daily Dispense: 90 tablet Refill: 3 famotidine (PEPCID) 20 mg tablet Sig: Take 1 tablet (20 mg total) by mouth daily as needed for indigestion or heartburn Dispense: 180 tablet Refill: 3 lubiprostone (AMITIZA) 24 mcg capsule Sig: Take 1 capsule (24 mcg total) by mouth 2 (two) times a day with meals Dispense: 180 capsule Refill: 3 ZERO refills remain on this prescription. Your patient is requesting advance approval of refills for this medication to PREVENT ANY MISSED DOSES dicyclomine (BENTYL) 20 mg tablet Sig: Take 1 tablet (20 mg total) by mouth 4 (four) times a day as needed (abdominal pain/cramping) Dispense: 360 capsule Refill: 3 Return in about 6 months (around 10/18/2023) for IBS/GERD. Medication(s) and/or immunization(s) uses and side effects briefly discussed. Patient verbalizes understanding of all instructions provided today and agrees with plan. This note is dictated and transcribed by [employer]. Audit Spec variances may occur. Despite proofreading, typographical errors may occur. My collaborating physician is Dr. Germania Sorto-Gastroenterology. Richard Bowman NP Cosigned by Germania Sorto MD at 04/22/2023 3:12 PM CDT documented in this encounter Plan of Treatment Upcoming Encounters Date Type Department Care Team (Latest Contact Info) Description 09/07/2024 8:30 AM [facility] Hospital Encounter [facility] [address] [place] [phone] Forest Catherine MD [address] [address] 09/07/2024 8:30 AM PLYWOOD STOCK GRADER - 09/07/2024 9:00 AM PLYWOOD STOCK GRADER Surgery [facility] [address] [place] [phone] Forest Catherine MD [address] [address] EGD w/Endo Flip & YI placement Scheduled Procedures Name Priority Associated Diagnoses Date/Ti sd ESOPHAGOGASTRODUODENOSCOPY Hiatal hernia Gastroesophageal reflux disease, unspecified whether esophagitis present 09/07/2024 8:30 AM PLYWOOD STOCK GRADER documented as of this encounter Visit Diagnoses Diagnosis Irritable bowel syndrome with both constipation and diarrhea- Primary Chronic nausea Nausea alone Gastroesophageal reflux disease with esophagitis without hemorrhage Chronic superficial gastritis without bleeding History of repair of hiatal hernia History of colonoscopy with polypectomy Other postprocedural status Slow transit constipation Hiatal hernia Diaphragmatic hernia without mention of obstruction or gangrene Gastroesophageal reflux disease, unspecified whether esophagitis present documented in this encounter Discontinued Medications Medication Sig Discontinue Reason Start Date End Da te ondansetron (ZOFRAN) 4 mg tablet Take 1 tablet (4 mg total) by mouth every 6 (six) hours 12/01/2022 04/17/2023 hydrOXYzine (ATARAX) 50 mg tablet Take 1 tablet (50 mg total) by mouth 3 (three) times a day 10/01/2022 04/17/[address] (CYMBALTA) 60 mg capsule Take 1 capsule (60 mg total) by mouth daily 10/01/2022 04/17/2023 nortriptyline (PAMELOR) 25 mg capsule Take 1 capsule (25 mg total) by mouth nightly Reorder 12/20/2021 04/17/2023 lubiprostone (AMITIZA) 24 mcg capsule TAKE 1 CAPSULE(24 MCG) BY MOUTH TWICE DAILY WITH MEALS Reorder 06/05/2022 04/17/2023 ondansetron ODT (ZOFRAN-ODT) 8 mg disintegrating tablet Take 1 tablet (8 mg total) by mouth every 6 (six) hours as needed for nausea or vomiting Reorder 09/04/2022 04/17/2023 dicyclomine (BENTYL) 10 mg capsule Take 2 capsules (20 mg total) by mouth 4 (four) times a day as needed (abdominal pain/cramping) Reorder 11/24/2022 04/17/[address] (PROTONIX) 40 mg EC tablet Take 1 tablet (40 mg total) by mouth daily Reorder 01/15/2023 04/17/2023 famotidine (PEPCID) 20 mg tablet Take 1 tablet (20 mg total) by mouth daily as needed for indigestion or heartburn Reorder 02/10/2023 04/17/2023 documented as of this encounter Historical Medications * This list may reflect changes made after this encounter. albuterol HFA (PROVENTIL HFA,VENTOLIN HFA,PROAIR HFA) 90 mcg/actuation inhaler 2 puffs every 4 (four) hours as needed 04/03/2023 added in this encounter Care Teams Information Specialist Relationship Specialty Start Date End Date Parmjit Dai MD PCP - General 12/31/20 Mere Landa NP Nurse Practitioner 02/07/20 Tico Burton MD Surgeon General Surgery 08/09/21 documented as of this encounter
--- OUTSIDE RECORDS SUMMARY | 2024-08-16 04:33 | XMS_ITS | Encounter Summary ---
Author Organization [facility] Address [address] [place] [address] Care Team Providers Care Senior Javascript Engineer Name Role Phone Mere Landa NP Unavailable [phone] Parmjit Dai MD Primary Care Provider [phone] Tico Burton MD Unavailable [phone] Reason for Visit * Reason Onset Date Comments Schedule Colonoscopy 09/10/2022 Encounter Details Date Type Department Care Team (Late st Contact Info) Description 09/10/2022 Telephone [facility] Gastroenterology at [address] [place] [address] Kalani Barth Schedule Colonoscopy Social History Tobacco Use Types Packs/Day Years Used Date Smoking Tobacco: Former Cigarettes 4 - 1999 Smokeless Tobacco: Never Comments:off and on Alcohol Use Standard Drinks/Week Comments No 0 (1 standard drink = 0.6 oz pur e alcohol) on occasion AUDIT-C Answer Date Recorded Q1: How often do you have a drink containing alcohol? Never 09/05/2022 Q2: How many drinks containi ng alcohol do you have on a typical day when you are drinking? Patient does not drink Q3: How often do you have si x or more drinks on one occasion? Never 09/05/2022 PHQ-2 Answer Date Recorded PHQ-2 Total Score (If total score is 3 or more points, staff should administer the PHQ-9) 0 08/09/2021 Comments No Sex and Gender Information Value Date Recorded Sex Assigned at Not on file Legal Sex Female 10:06 AM GAMING INVESTIGATOR Gender Identity Female 06/17/2024 7:02 AM CDT Sexual Orientation Not on file documented as of this encounter Miscellaneous Notes * Telephone Encounter - Kalani Barth - 09/10/2022 9:05 AM CST Patient is scheduled for a colonoscopy with Dr. Sorto on 10/29/22. Prep instructions mailed to patient and sent via [employer]. Last colonoscopy: 1-2 years ago Family history colon cancer (if yes, relationship to pt): No Personal history colon polyps or colon cancer: Yes - Polyps Pt on blood thinner (if yes, list medication and reason for taking): Yes - Eliquis Has pt had recent stent placement within the last year: No Pt have pacemaker/defibrillator: No Pt diabetic (if yes, insulin or oral meds): No Pt have kidney disease or on dialysis: No Pt on iron: No Hx of Constipation: Yes Mechanical Heart valve: No COVID-19 test verbally given to pt: Not Needed Instructed pt to call with any medical changes and/or medications/insurance. NG INVESTIGATOR documented in this encounter Plan of Treatment Upcoming Encounters Date Type Department Care Team (Latest Contact Info) Description 09/07/2024 8:30 AM GAMING INVESTIGATOR Hospital Encounter [facility] [address] [place] [phone] Forest Catherine MD [address] [address] 09/07/2024 8:30 AM GAMING INVESTIGATOR - 09/07/2024 9:00 AM GAMING INVESTIGATOR Surgery [facility] [address] [place] [phone] Forest Catherine MD [address] [address] EGD w/Endo Flip & YI placement Scheduled Procedures Name Priority Associated Diagnoses Date/Ti me ESOPHAGOGASTRODUODENOSCOPY Hiatal hernia Gastroesophageal reflux disease, unspecified whether esophagitis present 09/07/2024 8:30 AM GAMING INVESTIGATOR documented as of this encounter Visit Diagnoses Diagnosis Colitis- Primary Other and unspecified noninfectious gastroenteritis and colitis Hiatal hernia Diaphragmatic hernia without mention of obstruction or gangrene Gastroesophageal reflux disease, unspecified whether esophagitis present documented in this encounter Orders Case Request Count Last Ordered Date First Orde red Date CASE REQUEST GI 1 09/10/2022 documented in this encounter Care Teams Senior Javascript Engineer Relationship Specialty Start Date End Date Parmjit Dai MD PCP - General 12/31/20 Mere Landa NP Nurse Practitioner 02/07/20 Tico Burton MD Surgeon General Surgery 08/09/21 documented as of this encounter
--- OUTSIDE RECORDS SUMMARY | 2024-08-16 04:33 | XMS_ITS | Encounter Summary ---
Author Organization [facility] Healthcare Address [address] [place] [address] Care Team Providers Care Linux Server Engineer Name Role Phone Mere Landa NP Unavailable [phone] Parmjit Dai MD Primary Care Provider [phone] Tico Burton MD Unavailable [phone] Reason for Visit * Auth/Cert (Routine) Specialty Diagnoses / Procedures Referred By Contac t Referred To Contact Diagnoses Abdominal pain Dyspepsia Abdominal pain [R10.9] Dyspepsia [R10.13] Procedures DE ESOPHAGOGASTRODUODENOSCOPY TRANSORAL DIAGNOSTIC ESOPHAGOGASTRODUODENOSCOPY Referral ID Status Reason Start Date Expiration Date Visits Re quested Visits Authorized [id number] 1 1 Encounter Details Date Type Department Care Team (Late st Contact Info) Description 08/21/2023 10:13 AM STAVE BLOCK ROLLER Anesthesia Event [facility] [address] [place] [id number] Magda Hutton MD [address] [facility] [phone] [place] [phone] Anesthesia Record Procedure Summary Procedure Name Responsible Anesthesiologist Anesthesia Start Time Anesthesia Stop Time ESOPHAGOGASTRODUODENOSCOPY BIOPSY Magda Hutton MD 08/21/23 1013 08/21/23 1031 Events Date Time Event Comment 08/21/2023 1013 1013 In Room 1013 An Start 1013 An Start Data 1014 Start Supplemental O2 1018 Patient Positioned Laterally 1018 An Induction The patient was reevaluated immediately before moderate or deep sedation use and before anesthesia induction. 1019 Proc Start 1019 Anesthesia Ready 1028 Proc Fin 1028 an stop data 1029 Handoff to RN I completed my handoff [...] Patient disposition at the time of handoff: No value filed. 1031 An Stop 1032 Out of Room Meds Name Total lidocaine (cardiac) syringe 2 % 60 mg propofol 200 mg benzocaine (HURRICAINE ONE) mouth spray 20 % 1 spray sodium chloride 0.9% infusion 0 mL * Agents Name O2 * Blood No blood administrations on file. Lines, Drains, and Airways Type Details Placement Removal Peripheral IV Placement Date: 08/01 10/23; Placement Time: 935; Catheter Size: 20 G; Orientation: Right, Lateral; Location: Wrist; Site Prep: Chlorhexidine; Technique: Anatomical landmarks; Inserted by: abiel stanton rn; Insertion Attempts: 1; Patient Tolerance: Tolerated well; Removal Date: 08/21/23; Removal Time: 111; Removal Reason: Therapy completed 08/21/2336 by Brook Stanton RN 08/21/23 111 by Mery Mcelroy RN documented in this encounter Social History [...] on file Legal Sex Female 10:06 AM STAVE BLOCK ROLLER Gender Identity Female 06/17/2024 7:02 AM CDT Sexual Orientation Not on file documented as of this encounter OR Notes * Anesthesia Postprocedure Evaluation - Magda Hutton MD - 08/21/2023 12:19 PM CST Patient: Sarahy Gill Procedure Summary Date: 08/21/23 Room / Location: [facility] ROOM 1 / [facility] Anesthesia Start: 1013 Anesthesia Stop: 103 Procedures: ESOPHAGOGASTRODUODENOSCOPY BIOPSY BOUGIE DILATION Diagnosis: Abdominal pain Dyspepsia (Abdominal pain [R10.9]) (Dyspepsia [R10.13]) Providers: Germania Sorto MD Responsible Provider: Magda Hutton MD Anesthesia Type: general TIVA ASA Status: 2 Anesthesia Type: general TIVA Last vitals BP 119/75 Pulse 62 Temp 36.9 ??C (98.5 ??F) (Temporal) Resp 16 SpO2 100% Anesthesia Post Evaluation Patient location during evaluation: PACU Patient participation: complete - patient participated Level of consciousness: fully awake Pain management: adequate Airway patency: adequate Evidence of recall: no Cardiovascular status: acceptable Respiratory status: acceptable Hydration status: acceptable Pt is: normothermic Nausea/Vomiting status: none No notable events documented. E BLOCK ROLLER * Anesthesia Preprocedure Evaluation - Magda Hutton MD - 08/21/2023 10:05 AM CST Images from the original note were not included. Anesthesia Evaluation Sarahy Gill is a 53 y.o. female Procedure(s): ESOPHAGOGASTRODUODENOSCOPY Pre-Op Diagnosis Codes: * Abdominal pain [R10.9] * Dyspepsia [R10.13] HISTORY Past Medical History Information obtained from: patient and chart. Neurological + TIA + Psychiatric history - anxiety, depression and bipolar Pertinent negatives: seizures and CVA/stroke Cardiovascular + Hypertension + Hyperlipidemia + Atrial fibrillation/flutter - Pertinent negatives: TX ; pacemaker/ICD and negative for CHF Respiratory + Current smoker (MJ and nicotine vape) - Counseled to abstain from smoking the day of surgery. Patient refrained from smoking on day of surgery. Pertinent negatives: COPD; asthma and sleep apnea (ABIGAIL) Hepatic / Heme + History of anemia Gastrointestinal + GERD - on daily therapy. Renal / Pertinent negatives: renal disease Musculoskeletal/Pain + Osteoarthritis + Headaches - migraine headaches. Endocrine / Other Pertinent negatives: diabetes mellitus and thyroid disease Functional Capacity Functional capacity: 4-6 METs Day of Surgery assessments + Possibility of assessed - ruled out by patient's provided history. Review of Systems Pertinent negatives: SOB; recent cold/flu; fever and chest pain Patient Active Problem List Diagnosis ??? Irritable bowel syndrome with both constipation and diarrhea ??? Essential tremor ??? Jerky body movements ??? Orthostatic dizziness ??? Hypertension ??? Atrial fibrillation (CMS/HCC) (HCC) ??? Palpitations ??? Migraine headache ??? Abdominal pain, generalized ??? Cyclic vomiting syndrome ??? Bipolar affect, depressed (HCC) ??? Intussusception intestine (CMS/HCC) (HCC) ??? [...] ??? Cyclical vomiting ??? Gastritis ??? Colitis ??? Abdominal pain ??? Dyspepsia Past Medical History: Diagnosis Date ??? A-fib (CMS/HCC) (HCC) ??? Anxiety ??? Arthritis ??? Bipolar affect, depressed (HCC) ??? Chronic nausea 09/24/2021 ??? Colon polyp ??? Cyclic vomiting syndrome ??? Depression ??? Headache, tension-type ??? Hypertension ??? Hypotension ??? IBS (irritable bowel syndrome) ??? Migraine ??? Nausea and vomiting, unspecified vomiting type 12/18/2021 ??? Stroke (HCC) ??? Weight loss Past Surgical History: [...] HFA) 90 mcg/actuation inhaler -- 04/03/23 -- Provider, MD Rosanne apixaban (ELIQUIS) 5 mg tablet Past Week -- -- ProviderRosanne MD atorvastatin (LIPITOR) 40 mg tablet () -- 08/13/21 06/08/23 Letha Rose MD Take 1 tablet (40 mg total) by mouth daily baclofen (LIORESAL) 10 mg tablet -- 08/06/23 -- Richard Bowman NP Take 1/2-1 pill t.i.d. Take 10-15 minutes before eating to help with the esophageal spasms. dicyclomine (BENTYL) 20 mg tablet -- 04/17/23 -- Richard Bowman NP Take 1 tablet (20 mg total) by mouth 4 (four) times a day as needed (abdominal pain/cramping) famotidine (PEPCID) 20 mg tablet -- 04/17/23 -- Richard Bowman NP Take 1 tablet (20 mg total) by mouth daily as needed for indigestion or heartburn flecainide (TAMBOCOR) 100 mg tablet 08/21/2023 11/08/22 -- Rosanne Perez MD lubiprostone (AMITIZA) 24 mcg capsule More than a month 04/17/23 -- Richard Bowman NP Take 1 capsule (24 mcg total) by mouth 2 (two) times a day with meals Notes: ZERO refills remain on this prescription. Your patient is requesting advance approval of refills for this medication to PREVENT ANY MISSED DOSES metoprolol XL (TOPROL-XL) 25 mg extended release tablet 08/21/2023 -- -- Rosanne Perez MD nortriptyline (PAMELOR) 25 mg capsule -- 04/17/23 04/16/24 Richard Bowman NP Take 1 capsule (25 mg total) by mouth nightly ondansetron (ZOFRAN) 8 mg tablet -- 05/29/23 -- Richard Bowman NP Take 0.5-1 tablets (4-8 mg total) by mouth every 6 (six) hours as needed for nausea or vomiting pantoprazole DR (PROTONIX) 40 mg EC tablet -- 04/17/23 -- Richard Bowman NP Take 1 tablet (40 mg total) by mouth daily SUMAtriptan (IMITREX) 50 mg tablet -- -- -- Rosanne Perez MD Current Facility-Administered Medications: ??? ondansetron (ZOFRAN) injection 4 mg, 4 mg, intravenous, Q30 Min PRN ??? sodium chloride 0.9% flush 0.5-20 mL, 0.5-20 mL, intra-catheter, PRN ??? sodium chloride 0.9% infusion, 30 mL/hr, intravenous, Continuous, Last Rate: 30 mL/hr at 08/21/23935, 30 mL/hr at 08/21/23935 ??? sodium chloride 0.9% infusion, 125 mL/hr, intravenous, Continuous Social History Tobacco Use Smoking Status Former ??? Types: Vaping, Cigarettes ??? Start date: 1983 ??? Quit date: 1999 ??? Years since quittin.9 Smokeless Tobacco Never Tobacco Comments off and on Alcohol Use: Not At Risk (06/08/2023) AUDIT-C ??? Frequency of Alcohol Consumption: Never ??? Average Number of Drinks: Patient does not drink ??? Frequency of Binge Drinking: Never Substance and Sexual Activity Drug Use Yes ??? Types: Marijuana Comment: occasionally last used 10/28/2022 Family History Problem Relation Age of Onset ??? Esophageal cancer Maternal Grandmother ??? Heart disease Maternal Grandmother ??? Stroke Maternal Grandmother ??? Hypertension Maternal Grandmother ??? Migraines Mother Vitals: 08/21/23 0912 BP: 109/74 Pulse: 61 Resp: 16 Temp: 37.1 ??C (98.8 ??F) SpO2: 97% PT: No results found for requested labs [...] requested labs within last 30 days. Creatinine: 08/19/2023: 0.87 mg/dL STOP-Bang Total Score: 3 DOS Physical Exam Medical history, medications, and allergies reviewed. Attestation: I endorse the findings of the anesthesia pre-evaluation assessment dated: 08/21/2023. Airway Exam: Mallampati: I Cervical ROM: FROM TM distance: normal Cardiovascular Exam: Rate: regular Rhythm: regular Pulmonary Exam: LCTA, bilat Dental Exam: Edentulous Current state: Patient's current state is cooperative and interactive. Anesthesia Plan ASA 2 My patient is approved for the Anesthesia Controlled Medication protocol when under care of a DEPARTMENT ASSISTANT Planned anesthesia: General TIVA Induction: Induction: intravenous. Informed Consent: Discussed plan with DEPARTMENT ASSISTANT. Anesthesia plan and risks discussed with patient. Consent and Attending signature: I and/or my designee have discussed the anesthesia plan, benefits, possible alternatives, parental presence at time of induction (if indicated), and clinically relevant risks that may include dental injury, unintentional awareness, and/or other complications. The patient and/or parent/legal guardian understand, and agree to proceed. All questions answered. E BLOCK ROLLER documented in this encounter Plan of Treatment Upcoming Encounters Date Type Department Care Team (Latest Contact Info) Description 09/07/2024 8:30 AM STAVE BLOCK ROLLER Hospital Encounter [facility] [address] [place] [phone] Forest Catherine MD [address] [address] 09/07/2024 8:30 AM STAVE BLOCK ROLLER - 09/07/2024 9:00 AM STAVE BLOCK ROLLER Surgery [facility] [address] [place] [phone] Forest Catherine MD [address] [address] EGD w/Endo Flip & YI placement Scheduled Procedures Name Priority Associated Diagnoses Date/Ti me ESOPHAGOGASTRODUODENOSCOPY Hiatal hernia Gastroesophageal reflux disease, unspecified whether esophagitis present 09/07/2024 8:30 AM STAVE BLOCK ROLLER documented as of this encounter Visit Diagnoses Not on filedocumented in this encounter Administered Medications Inactive Administered Medications - up to 3 most recent administrations Medication Order MAR Action Action Date Dose Rate Site benzocaine (HURRICAINE) 20 % mouth spray mouth/throat, As needed, Starting on Thu08/21/23 at 1015, Anesthesia Intra-op Given 08/21/2023 10:15 AM STAVE BLOCK ROLLER 1 spray lidocaine (XYLOCAINE) 20 mg/mL (2 %) preservative free injection intravenous, As needed, Starting on Thu08/21/23 at 1018, Anesthesia Intra-op Given 08/21/2023 10:18 AM STAVE BLOCK ROLLER 60 mg propofoL (DIPRIVAN) 10 mg/mL IV intravenous, As needed, Starting on Thu08/21/23 at 1018, Anesthesia Intra-op Bolus 08/21/2023 10:26 AM STAVE BLOCK ROLLER 30 mg Bolus 08/21/2023 10:23 AM STAVE BLOCK ROLLER 40 mg Bolus 08/21/2023 10:20 AM STAVE BLOCK ROLLER 30 mg sodium chloride 0.9% infusion 30 mL/hr, intravenous, Continuous, Starting on Thu08/21/23 at 0945, Pre-Procedure (GI) Rate/Dose Verify 08/21/2023 10:13 AM STAVE BLOCK ROLLER 30 mL/hr New Bag 08/21/2023 9:36 AM STAVE BLOCK ROLLER 30 mL/hr 30 mL/hr documented in this encounter Care Teams Linux Server Engineer Relationship Specialty Start Date End Date Parmjit Dai MD PCP - General 12/31/20 Mere Landa NP Nurse Practitioner 02/07/20 Tico Burton MD Surgeon General Surgery 08/09/21 documented as of this encounter
--- OUTSIDE RECORDS SUMMARY | 2024-08-16 04:33 | XMS_ITS | Encounter Summary ---
Author Organization [facility] Healthcare Address [address] [place] [address] Care Team Providers Care Powder Compounder Name Role Phone Mere Landa NP Unavailable [phone] Parmjit Dai MD Primary Care Provider [phone] Tico Burton MD Unavailable [phone] Ivan Liang MD Unavailable Reason for Visit * Auth/Cert (Routine) Specialty Diagnoses / Procedures Referred By Contac t Referred To Contact Diagnoses Chronic abdominal pain Procedures na Referral ID Status Reason Start Date Expiration Date Visits Re quested Visits Authorized [id number] 1 1 Encounter Details Date Type Department Care Team (Late st Contact Info) Description 09/09/2023 9:17 AM TRUCK GREASER Anesthesia Event [facility] Operating Room [address] [place] [address] Travis Shahid MD [address] [place] [address] [place] [id number] [address] Anesthesia Record Procedure Summary Procedure Name Responsible Anesthesiologist Anesthesia Start Time Anesthesia Stop Time LAPAROSCOPIC APPENDECTOMY (Abdomen) Travis Shahid MD 09/09/23 0917 09/09/23 1020 Events Date Time Event Comment 09/09/2023 0830 0916 In Room 0917 An Start 0917 An Start Data 0921 An Induction The patient was reevaluated immediately before moderate or deep sedation use and before anesthesia induction. 0921 An Intubation 0931 Anesthesia Ready 0936 Proc Start 0936 Incision Start 1011 An Extubation 1011 Proc Fin 1014 an stop data 1015 Out of Room 1020 Handoff to RN I completed my handoff [...] the time of handoff: No value filed. 1020 An Stop Meds Name Total midazolam 2 mg fentaNYL 100 mcg propofol 100 mg lidocaine (cardiac) syringe 2 % 3 mL rocuronium 30 mg phenylephrine 300 mcg dexamethasone 4 mg cefOXitin (MEFOXITIN) 2,000 mg/20 mL in sterile water (premix) 2,000 mg 2,000 mg ondansetron (ZOFRAN) injection 4 mg 4 mg glycopyrrolate 400 mcg neostigmine 1 mg/mL 3 mg ketorolac 15 mg Lactated Ringer's (LR) infusion 1,000 mL * Agents Name O2 Air Sevoflurane Inspired Sevoflurane * Blood No blood administrations on file. Lines, Drains, and Airways Type Details Placement Removal Peripheral IV Placement Date: 09/08/23; Placement Time: 231; Catheter Size: 20 G; Orientation: Anterior, Distal, Left; Location: Forearm; Site Prep: Chlorhexidine; Inserted by: leslie cole; Insertion Attempts: 2; Patient Tolerance: Tolerated well; Removal Date: 09/19/23; Removal Time: 1004; Removal Reason: Not present on admission 09/08/23 2310 by Leslie Nolan RN 09/19/23 1004 by Narda Foss RN ETT Placement Date: 09/09/23; Placement Time: 926 (created via procedure documentation); Mask Ventilation: 1; Technique: Video laryngoscopy; Type: ETT - single; Single Lumen Tube Size: 7 mm; Cuffed: Yes; Laryngoscope: Claudio; Blade Size: 3; Location: Oral; Insertion Attempts: 1; Placement Verification: Auscultation, Capnometry; Removal Date: 09/09/23; Removal Time: 1011 09/09/23 0927 by Rodri Key CRNA 09/09/23 1011 by Rodri Key CRNA RETIRED Surgical Site 09/09/23; 0959; Abdomen; 08/02/24 (Retired LDA, Removed/Completed by [facility] with LDA Utility); 1213 (Retired LDA, Removed/Completed by [facility] with LDA Utility) 09/09/23 0959 by Debbie Rich RN 08/02/24 1213 by Discharge Provider, Automatic documented in this encounter Social History Tobacco Use Types Packs/Day Years Used Date Smoking Tobacco: Former Cigarettes 1 - 1999 Vaping Smokeless Tobacco: Never Comments:off and on Alcohol Use Standard Drinks/Week Comments No 0 (1 standard drink = 0.6 oz pur e alcohol) on occasion [facility] Utilities Answer Date Recorded In the past 12 months has [employer], gas, oil, or water [employer] threatened to shut off services in your [...] often do you attend chur ch or druze services? Never 09/09/2023 Do you belong to any clubs o r organizations such as rastafarian groups, unions, fraternal or athletic groups, or [...] on file Legal Sex Female 10:06 AM TRUCK GREASER Gender Identity Female 06/17/2024 7:02 AM CDT Sexual Orientation Not on file documented as of this encounter OR Notes * Anesthesia Postprocedure Evaluation - Travis Shahid MD - 09/09/2023 10:29 AM CST Patient: Sarahy Gill Procedure Summary Date: 09/09/23 Room / [facility] Anesthesia Start: 916 Anesthesia Stop: 1019 Procedure: LAPAROSCOPIC APPENDECTOMY (Abdomen) Diagnosis: (APPENDIX DISEASE [K38.9]) Providers: Ivan Liang MD Responsible Provider: Travis Shahid MD Anesthesia Type: general ASA Status: 2 Anesthesia Type: general Last vitals BP 120/58 Pulse 84 Temp 36.5 ??C (97.7 ??F) (Skin) Resp 20 SpO2 99% Anesthesia Post Evaluation Patient location during evaluation: PACU Patient participation: complete - patient participated Level of consciousness: fully awake Pain management: adequate Airway patency: adequate Evidence of recall: no Cardiovascular status: acceptable Respiratory status: acceptable Hydration status: acceptable Pt is: normothermic Nausea/Vomiting status: none No notable events documented. K GREASER * Anesthesia Procedure Notes - Rodri Key CRNA - 09/09/2023 9:27 AM TRUCK GREASER Associated Order(s): Airway Airway Patient location: pre-op Urgency: elective Indications for airway management: anesthesia Difficult airway: no Staff: Placed by: OFFICE ASSOCIATE: Rodri Key CRNA Emergent airway documentation: Risks and benefits discussed: yes Consent obtained: yes Consent given by: patient Airway prep: Preoxygenated: yes Patient position: sniffing MILS maintained throughout: yes Mask difficulty assessment: 1 - vent by mask Spontaneous ventilation during airway: absent Sedation level during airway: GA Final airway details: Final airway type: endotracheal airway Tube type: ETT ETT size: 7.0 mm Cuffed: yes Technique used for successful ETT placement: video laryngoscopy Insertion site: oral Blade type: Claudio Video blade type: Lopes Blade size: 3 Cormack-Lehane (video): grade I - full view of glottis Cuff inflated with: air ETT to teeth: 20 cm Placement verified by: auscultation and CO2 detection Airway secured with: silk tape Number of attempts: 1 Ventilation between attempts: none Planned trial extubation: yes K GREASER * Anesthesia Preprocedure Evaluation - Magda Hutton MD - 09/09/2023 8:03 AM TRUCK GREASER Images from the original note were not included. Anesthesia Evaluation Sarahy Gill is a 53 y.o. female Procedure(s): LAPAROSCOPIC APPENDECTOMY * No Diagnosis Codes entered * HISTORY Past Medical History Information obtained from: chart. Neurological + TIA + Psychiatric history - anxiety, depression and bipolar Pertinent negatives: seizures and CVA/stroke Cardiovascular + Hypertension + Hyperlipidemia + Atrial fibrillation/flutter - Pertinent negatives: [place] ; pacemaker/ICD and negative for CHF Respiratory [...] by patient's provided history. Review of Systems + nausea/vomiting (Last emesis was yesterday and was clear fluid.) Pertinent negatives: SOB; recent cold/flu; fever and [...] ??? Colitis ??? Abdominal pain ??? Dyspepsia ??? Appendix disease ??? Chronic abdominal pain ??? Iron deficiency anemia Past Medical History: Diagnosis Date ??? A-fib [...] after trying. ??? Zithromax [Azithromycin] Stomach upset Med List Status: Nurse Complete Set By: Teri Acosta RN at 09/09/2023 3:38 AM Taking? Last Dose Start Date End Date Provider albuterol HFA (PROVENTIL HFA,VENTOLIN HFA,PROAIR HFA) 90 mcg/actuation inhaler -- 04/03/23 -- ProviderRosanne MD apixaban (ELIQUIS) 5 mg tablet -- -- -- Rosanne Perez MD atorvastatin (LIPITOR) 40 mg tablet () -- 08/13/21 09/03/23 Letha Rose MD Take 1 tablet (40 [...] MD lubiprostone (AMITIZA) 24 mcg capsule -- 04/17/23 -- Richard Bowman NP Take [...] Rosanne Perez MD Current Facility-Administered Medications: ??? [MAR Hold] albuterol 2.5 mg /3 mL (0.083 %) nebulizer solution 2.5 mg, 2.5 mg, nebulization, Q4H PRN (RT) ??? [MAR Hold] dicyclomine (BENTYL) capsule 20 mg, 20 mg, oral, QID PRN ??? [MAR Hold] famotidine (PEPCID) tablet 20 mg, 20 mg, oral, Daily PRN ??? [MAR Hold] flecainide (TAMBOCOR) tablet 100 mg, 100 mg, oral, BID ??? Lactated Ringer's (LR) infusion, 75 mL/hr, intravenous, Continuous, Last Rate: 75 mL/hr at 09/09/23 0439, 75 mL/hr at 09/09/23 0439 ??? [MAR Hold] lubiprostone (AMITIZA) capsule 24 mcg, 24 mcg, oral, BID with meals (bkfst, dinner) ??? [MAR Hold] metoprolol XL (TOPROL-XL) extended release tablet 25 mg, 25 mg, oral, Daily ??? [MAR Hold] nortriptyline (PAMELOR) capsule 25 mg, 25 mg, oral, Nightly ??? [MAR Hold] ondansetron ODT (ZOFRAN-ODT) disintegrating tablet 4 mg, 4 mg, oral, Q6H PRN OR [MAR Hold] ondansetron (ZOFRAN) injection 4 mg, 4 mg, intravenous, Q6H PRN, 4 mg at 09/09/23 0352 ??? [MAR Hold] pantoprazole DR (PROTONIX) extended release tablet 40 mg, 40 mg, oral, Daily ??? [MAR Hold] polyethylene glycol (MIRALAX) packet 17 g, 17 g, oral, Daily PRN Social History Tobacco Use Smoking Status Former ??? Types: Vaping, Cigarettes ??? Start date: 1983 ??? Quit date: 1999 ??? Years since quittin.0 Smokeless Tobacco Never Tobacco Comments off and on Alcohol Use: Not At Risk (09/03/2023) AUDIT-C ??? Frequency of Alcohol Consumption: Never ??? Average Number of Drinks: Patient does not drink ??? Frequency of Binge Drinking: Not on file Substance and Sexual Activity Drug Use Yes ??? Types: Marijuana Comment: occasionally last used 124 Family History Problem Relation Age of Onset ??? Esophageal cancer Maternal Grandmother ??? Heart disease Maternal Grandmother ??? Stroke Maternal Grandmother ??? Hypertension Maternal Grandmother ??? Migraines Mother Vitals: 09/09/23 0250 09/09/23 0305 09/09/23 0717 BP: 107/62 101/72 Pulse: 75 69 81 Resp: 9 14 Temp: 37 ??C (98.6 ??F) 36.1 ??C (96.9 ??F) SpO2: 100% 99% 100% PT: No results found for requested labs within last 30 days. INR: No results found for requested labs within last 30 days. APTT: No results found for requested labs within last 30 days. Hgb A1C: No results found for requested labs within last 30 days. CBC RBC: 09/08/2023: 3.98 M/cumm RDW: No results found for requested labs within last 30 days. MCHC: 09/08/2023: 31.8 g/dL (L) MCH: 09/08/2023: 26.6 pg (L) MCV: 09/08/2023: 83.7 fL Hct: 09/08/2023: 33.3 % (L) Hgb: 09/08/2023: 10.6 g/dL (L) WBC: 09/08/2023: 7.5 K/cumm MPV: 09/08/2023: 10.0 fL Platelets: 09/08/2023: 333 K/cumm RDW CV: 09/08/2023: 18.7 % (H) RDW Sd: 09/08/2023: 55.2 fL (H) BMP Glucose: 09/08/2023: 110 mg/dL Calcium: 09/08/2023: 9.6 mg/dL Sodium: 09/08/2023: 141 mmol/L Potassium: 09/08/2023: 3.4 mmol/L CO2: 09/08/2023: 25 mmol/L Chloride: 09/08/2023: 106 mmol/L BUN: 09/08/2023: 7 mg/dL Creatinine: 09/08/2023: 0.68 mg/dL DOS Physical Exam Medical history, medications, and allergies reviewed. Attestation: I endorse the findings of the anesthesia pre-evaluation assessment dated: 09/09/2023. Airway Exam: Mallampati: I Cervical ROM: FROM TM distance: normal Cardiovascular Exam: Rate: regular Rhythm: regular Pulmonary Exam: LCTA, bilat Dental Exam: Edentulous Current state: Patient's current state is cooperative and interactive. Anesthesia Plan ASA 2 My patient is approved for the Anesthesia Controlled Medication protocol when under care of a OFFICE ASSOCIATE Planned anesthesia: General Team communication plan: oral ET tube Induction: Induction: intravenous. Postoperative Plan: No postoperative mechanical ventilation intended. Informed Consent: Discussed plan with OFFICE ASSOCIATE. Anesthesia plan and risks discussed with patient. Consent and Attending signature: I and/or my designee have discussed the anesthesia plan, benefits, possible alternatives, parental presence at time of induction (if indicated), and clinically relevant risks that may include dental injury, unintentional awareness, and/or other complications. The patient and/or parent/legal guardian understand, and agree to proceed. All questions answered. K GREASER documented in this encounter Plan of Treatment Upcoming Encounters Date Type Department Care Team (Latest Contact Info) Description 09/07/2024 8:30 AM TRUCK GREASER Hospital Encounter [facility] [address] [place] [phone] Forest Catherine MD [address] [address] 09/07/2024 8:30 AM TRUCK GREASER - 09/07/2024 9:00 AM TRUCK GREASER Surgery [facility] [address] [place] [phone] Forest Catherine MD [address] [address] EGD w/Endo Flip & YI placement Scheduled Procedures Name Priority Associated Diagnoses Date/Ti me ESOPHAGOGASTRODUODENOSCOPY Hiatal hernia Gastroesophageal reflux disease, unspecified whether esophagitis present 09/07/2024 8:30 AM TRUCK GREASER documented as of this encounter Procedures Procedure Name Priority Date/Time Associated Diagnosis Comments HI AN ELECTIVE ENDOTRACHEAL AIRWAY Routine 09/09/2023 9:27 AM TRUCK GREASER documented in this encounter Results * HI AN ELECTIVE ENDOTRACHEAL AIRWAY (09/09/2023 9:27 AM TRUCK GREASER) Narrative Rodri Key CRNA - 09/09/2023 9:27 AM TRUCK GREASER Rodri Key CRNA ? 09/09/2023 ??9:27 AM Airway Patient location: pre-op Urgency: elective Indications for airway management: anesthesia Difficult airway: no Staff: Placed by: OFFICE ASSOCIATE: Rodri Key CRNA Emergent airway documentation: Risks and benefits discussed: yes Consent obtained: yes Consent given by: patient Airway prep: Preoxygenated: yes Patient position: sniffing MILS maintained throughout: yes Mask difficulty assessment: 1 - vent by mask Spontaneous ventilation during airway: absent Sedation level during airway: GA Final airway details: Final airway type: endotracheal airway Tube type: ETT ETT size: 7.0 mm Cuffed: yes Technique used for successful ETT placement: video laryngoscopy Insertion site: oral Blade type: Lcaudio Video blade type: Lopes Blade size: 3 Cormack-Lehane (video): grade I - full view of glottis Cuff inflated with: air ETT to teeth: 20 cm Placement verified by: auscultation and CO2 detection Airway secured with: silk tape Number of attempts: 1 Ventilation between attempts: none Planned trial extubation: yes us Travis Shahid MD ANESTHESIA ORDERABLES Final Result documented in this encounter Visit Diagnoses Not on filedocumented in this encounter Administered Medications Inactive Administered Medications - up to 3 most recent administrations Medication Order MAR Action Action Date Dose Rate Site cefOXitin (MEFOXITIN) 2,000 mg/20 mL in sterile water (premix) 2,000 mg 2,000 mg, intravenous, at 400 mL/hr, Administer over 3 Minutes, Once, On Thu09/09/23 at 0845, For 1 dose, Pre-Op, Indications: Prophylaxis, SurgicalIndications:Prophylaxis, Surgical Given 09/09/2023 9:26 AM TRUCK GREASER 2,000 mg dexAMETHasone (DECADRON) 4 mg/mL injection intravenous, Administer over 2 Minutes, As needed, Starting on Thu09/09/23 at 0926, Anesthesia Intra-op Given 09/09/2023 9:26 AM TRUCK GREASER 4 mg fentaNYL (SUBLIMAZE) preservative free injection intravenous, As needed, Starting on Thu09/09/23 at 0921, Anesthesia Intra-op Given 09/09/2023 9:55 AM TRUCK GREASER 50 mcg Given 09/09/2023 9:21 AM TRUCK GREASER 50 mcg glycopyrrolate (ROBINUL) injection intravenous, Administer over 1 Minutes, As needed, Starting on Thu09/09/23 at 0931, Anesthesia Intra-op Given 09/09/2023 10:04 AM TRUCK GREASER 200 mcg Given 09/09/2023 9:31 AM TRUCK GREASER 200 mcg ketorolac (TORADOL) 30 mg/mL (1 mL) injection intravenous, As needed, Starting on Thu09/09/23 at 1004, Anesthesia Intra-op Given 09/09/2023 10:04 AM TRUCK GREASER 15 mg Lactated Ringer's (LR) infusion 30 mL/hr, intravenous, Continuous, Starting on Thu09/09/23 at 0845, Pre-Op New Bag 09/09/2023 9:56 AM TRUCK GREASER Restarted 09/09/2023 9:17 AM TRUCK GREASER New Bag 09/09/2023 8:12 AM TRUCK GREASER 30 mL/hr 30 mL/hr lidocaine (XYLOCAINE) 20 mg/mL (2 %) preservative free injection intravenous, As needed, Starting on Thu09/09/23 at 0921, Anesthesia Intra-op Given 09/09/2023 9:21 AM TRUCK GREASER 3 mL midazolam (VERSED) 1 mg/mL preservative free injection intravenous, Administer over 2 Minutes, As needed, Starting on Thu09/09/23 at 0917, Anesthesia Intra-op Given 09/09/2023 9:17 AM TRUCK GREASER 2 mg neostigmine (PROSTIGMIN) injection intravenous, Administer over 3 Minutes, As needed, Starting on Thu09/09/23 at 1004, Anesthesia Intra-op Given 09/09/2023 10:04 AM TRUCK GREASER 3 mg ondansetron (ZOFRAN) injection 4 mg 4 mg, intravenous, Administer over 2 Minutes, Every 6 hours PRN, nausea, vomiting, if not tolerating PO, Starting on Thu09/09/23 at 0335, Indications: Nausea and VomitingIndications:Nausea and Vomiting Given 09/09/2023 9:21 AM TRUCK GREASER 4 mg Given 09/09/2023 3:52 AM TRUCK GREASER 4 mg phenylephrine (PAUL-SYNEPHRINE) injection intravenous, As needed, Starting on Thu09/09/23 at 0930, Anesthesia Intra-op Given 09/09/2023 9:37 AM TRUCK GREASER 100 mcg Given 09/09/2023 9:34 AM TRUCK GREASER 100 mcg Given 09/09/2023 9:30 AM TRUCK GREASER 100 mcg propofoL (DIPRIVAN) 10 mg/mL IV intravenous, As needed, Starting on Thu09/09/23 at 0921, Anesthesia Intra-op New Bag 09/09/2023 9:21 AM TRUCK GREASER 100 mg rocuronium (ZEMURON) injection intravenous, As needed, Starting on Thu09/09/23 at 0921, Anesthesia Intra-op Given 09/09/2023 9:21 AM TRUCK GREASER 30 mg documented in this encounter Care Teams Powder Compounder Relationship Specialty Start Date End Date Parmjit Dai MD PCP - General 12/31/20 Mere Landa NP Nurse Practitioner 02/07/20 Tico Burton MD Surgeon General Surgery 08/09/21 Ivan Liang MD Consulting Physician General Surgery 09/09/23 documented as of this encounter
--- OUTSIDE RECORDS SUMMARY | 2024-08-16 04:34 | XMS_ITS | Encounter Summary ---
Author Organization [facility] Healthcare Address [address] [place] [address] Care Team Providers Care Bullet Maker Name Role Phone Mere Landa NP Unavailable [phone] Parmjit Dai MD Primary Care Provider [phone] Tico Burton MD Unavailable [phone] Reason for Visit * Reason Comments Multiple Medical Complaints Encounter Details Date Type Department Care Team (Late st Contact Info) Description 08/17/2022 11:42 PM TEXTILE EXAMINER - 08/18/2022 4:55 AM [facility] Emergency [facility] Emergency Department [address] [place] [address] Sterling Briones MD [address] [place] [id number] Vasovagal episode (Primary Dx) Discharge Disposition: Discharge to home [...] you have a drink containing alcohol? Never 06/03/2022 Q2: How many drinks containi ng alcohol do you have on a typical day when you are drinking? Patient does not drink Q3: How often do you have si x or more drinks on one occasion? Never 06/03/2022 PHQ-2 Answer Date Recorded PHQ-2 Total Score (If total score is 3 or more points, staff should administer the PHQ-9) 0 08/09/2021 Comments No Sex and Gender Information Value Date Recorded Sex Assigned at Not on file Legal Sex Female 10:06 AM TEXTILE EXAMINER Gender Identity Female 06/17/2024 7:02 AM CDT Sexual Orientation Not on file documented as of this encounter Last Filed Vital Signs Vital Sign Reading Time Taken Comments Blood Pressure 120/66 08/18/2022 4:00 AM TEXTILE EXAMINER Pulse 81 08/18/2022 4:00 AM TEXTILE EXAMINER Temperature 36.7 ??C (98 ??F) 08/17/2022 8:52 PM TEXTILE EXAMINER Respiratory Rate 17 08/17/2022 8:52 PM TEXTILE EXAMINER Oxygen Saturation 100% 08/18/2022 4:00 AM TEXTILE EXAMINER Inhaled Oxygen Concentration - - Weight 63.5 kg (140 lb) 08/17/2022 8:52 PM TEXTILE EXAMINER Height 162.6 cm (5' 4 ) 08/17/2022 8:52 PM TEXTILE EXAMINER Body Mass Index 24.03 08/17/2022 8:52 PM TEXTILE EXAMINER documented in this encounter Discharge Instructions * Discharge Instructions* Sterling Briones MD - 08/18/2022 4:08 AM TEXTILE EXAMINER Your labs, vital signs, and physical exam were re-assuring. There are no signs of any dangerous or life threatening condition today. You are stable do follow- up with your primary care provider. Continue your home medication regimen. ILE EXAMINER documented in this encounter Medications at Time of Discharge apixaban (ELIQUIS) 5 mg tablet Take 1 tablet (5 mg total) by mouth 2 (two) times a day atorvastatin (LIPITOR) 40 mg tabletIndications:h yperlipidemia Take 1 tablet (40 mg total) by mouth daily 30 tablet 1 1 flecainide (TAMBOCOR) 100 mg tablet TAKE 1 TABLET BY MOUTH TWICE DAILY. START TAKING Saturday 07/07 2 metoprolol XL (TOPROL-XL) 25 mg extended release tablet Take 1 tablet (25 mg total) by mouth daily clonazePAM (KlonoPIN) 0.5 mg tablet Take 0.5 mg by mouth every morning 2 09/02/19 23 dicyclomine (BENTYL) 10 mg capsule Take 2 capsules (20 mg total) by mouth 4 (four) times a day as needed (abdominal pain/cramping) 240 capsule 5 2 11/25/19 23 escitalopram (LEXAPRO) 10 mg tabletIndications:A nxiety with Depression Take 10 mg by mouth daily 10/30/19 23 famotidine (PEPCID) 20 mg tablet Take 1 tablet (20 mg total) by mouth daily as needed for indigestion or heartburn 90 tablet 3 2 02/11/20 23 flecainide (TAMBOCOR) 50 mg tablet Take 50 mg by mouth 2 (two) times a day 09/02/19 23 fluconazole (DIFLUCAN) 150 mg tablet Take 1 pill at onset of yeast infection symptoms. May repeat dose in 72 hours if no resolution of symptoms. 2 tablet 2 09/05/19 23 hydrOXYzine (ATARAX) 25 mg tablet Take 25 mg by mouth 3 (three) times a day as needed 1 09/02/19 23 lubiprostone (AMITIZA) 24 mcg capsule TAKE 1 CAPSULE(24 MCG) BY MOUTH TWICE DAILY WITH MEALS 60 capsule 5 2 04/17/20 23 melatonin 5 mg tablet Take 1 tablet (5 mg total) by mouth nightly as needed (sleep) 10 tablet 2 09/05/19 23 nortriptyline (PAMELOR) 25 mg capsule Take 1 capsule (25 mg total) by mouth nightly 30 capsule 11 2 04/17/20 23 ondansetron (ZOFRAN) 4 mg tablet Take 1 tablet (4 mg total) by mouth every 6 (six) hours 30 tablet 5 2 12/02/19 23 ondansetron ODT (ZOFRAN-ODT) 4 mg disintegrating tablet Take 1 tablet (4 mg total) by mouth every 4 (four) hours as needed for nausea or vomiting 30 tablet 2 09/04/[address] (PROTONIX) 40 mg EC tablet Take 1 tablet (40 mg total) by mouth daily 90 tablet 3 2 01/16/20 23 polyethylene glycol (MIRALAX) 17 gram/dose powder Take 1-2 capfuls nightly for constipation management. 595 g 3 2 09/05/19 23 senna-docusate (PERICOLACE) 8.6-50 mg Take 2 pills nightly for constipation management 180 tablet 3 2 09/05/19 23 SUMAtriptan (IMITREX) 50 mg tabletIndications:M igraine Take 1 tablet (50 mg total) by mouth once as needed for migraine May repeat dose once in 2 hours if no relief. Do not exceed 2 doses in 24 hours. 11/13/19 24 venlafaxine XR (EFFEXOR-XR) 37.5 mg 24 hr capsule Take 37.5 mg by mouth daily 2 09/02/19 23 documented as of this encounter Ordered Prescriptions Prescription Sig Dispense Quantity Refills Last Filled Start Date End Date melatonin 5 mg tablet Take 1 tablet (5 mg total) by mouth nightly as needed (sleep) 10 tablet 08/18/2022 3 documented in this encounter Discharge Disposition Disposition Code Departure Means Destination Discharge to home or self care documented in this encounter ED Notes * Sterling Briones MD - 08/17/2022 11:51 PM CST HPI Chief Complaint Patient presents with Multiple Medical Complaints Patient presents c/o multiple complaints. She has a PMhx of cyclical vomiting syndrome / cannabinoid hyperemsis, gastritis, GERD, esophagitis, IBS (w/ constipation & diarrhea), cyclical vomiting syndrome / cannabinoid hyperemesis, hypokalemia, TIA/stroke, migraines, HTN, A fib, essential tremor, anxiety and bipolar disorder. Patient reports 1.5 week of productive cough and feeling bad. Today had a near syncopal episode. Developed dizziness/lightheadedness, got hot and sweaty, developed nausea and palpitations, and generalized weakness. Also c/o mild headache. Some urine frequency but no dysuria. 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 Called PCP (Parmjit Dai) for an appointment and is scheduled for Sep 02. Patient History: Patient Active Problem List Diagnosis Date Noted Gastroesophageal reflux disease with esophagitis without hemorrhage [...] Cyclic vomiting syndrome 08/09/2021 Bipolar affect, depressed (CMS/HCC) (FORMERLY [facility]) 08/09/2021 Intussusception intestine (CMS/HCC) ([facility]) 08/09/2021 Hypertension 08/08/2021 Abdominal pain, generalized 08/08/2021 Atrial fibrillation (CMS/HCC) ([facility]) 05/15/2020 Essential tremor 10/12/2018 Jerky body movements 10/12/2018 Irritable bowel syndrome with both constipation and diarrhea 02/23/2018 Orthostatic dizziness 09/16/2016 Palpitations 07/29/2016 Migraine headache 07/29/2016 Past Medical History: Diagnosis Date A-fib (CMS/HCC) (FORM[facility]LY [facility]) Anxiety Arthritis Bipolar affect, depressed (CMS/HCC) ([facility]) Cyclic vomiting syndrome Depression Headache, tension-type Hypertension Hypotension IBS (irritable bowel syndrome) Migraine Stroke (CMS/HCC) ([facility]) Weight loss Past Surgical History: Procedure Laterality Date ABDOMINAL SURGERY 2013 hiatel hernia repair ARTHROSCOPIC SURGERY Left 1984,1994,2001 knee SECTION 1992 CHOLECYSTECTOMY ENDOMETRIAL ABLATION HERNIA REPAIR TUBAL LIGATION Family History Problem Relation Age of Onset Esophageal cancer Maternal Grandmother Heart disease Maternal Grandmother Stroke Maternal Grandmother Hypertension Maternal Grandmother Migraines Mother Social History Tobacco Use Smoking status: Former Types: Cigarettes Start date: 1983 Quit date: 2000 Years since quittin.9 Smokeless tobacco: Never Tobacco comments: off and on Vaping Use Vaping Use: Every day Start date: 10/02/2014 Substances: Nicotine, Flavoring Devices: Pre-filled or refillable cartridge, Refillable tank Substance and Sexual Activity Alcohol use: No Comment: on occasion Drug use: Yes Types: Marijuana Comment: occasionally Sexual activity: Defer control/protection: Post-menopausal Social History Social History Narrative Not on file Review of Systems Review of Systems Constitutional: Positive for diaphoresis and fatigue. HENT: Negative. Eyes: Positive for photophobia. Respiratory: Positive for cough. Negative for shortness of breath. Cardiovascular: Positive for palpitations. Negative for chest pain. Gastrointestinal: Positive for nausea. Negative for abdominal pain, constipation, diarrhea and vomiting. Endocrine: Negative. Genitourinary: Positive for frequency. Negative for dysuria and flank pain. Musculoskeletal: Negative. Allergic/Immunologic: Negative. Neurological: Positive for dizziness, weakness (generalized), light-headedness and headaches. Hematological: Negative. Psychiatric/Behavioral: Negative. Breast: Negative. Physical Exam ED Triage Vitals [08/17/222051] Temp Pulse Resp BP SpO2 36.7 ??C (98 ??F) 68 17 106/63 100 % Temp src Heart Rate Source Patient Position BP Location FiO2 (%) -- -- -- -- -- Height Height Method Weight Weight Method 1.626 m (5' 4 ) -- 63.5 kg (140 lb) -- Physical Exam Vitals and nursing note reviewed. Constitutional: General: She is not in acute distress. HENT: Head: Normocephalic and atraumatic. Nose: Nose normal. Mouth/Throat: Mouth: Mucous membranes are moist. Eyes: Extraocular Movements: Extraocular movements intact. Cardiovascular: Rate and Rhythm: Tachycardia present. Pulses: Normal pulses. Heart sounds: Normal heart sounds. Pulmonary: Effort: Pulmonary effort is normal. Breath sounds: Normal breath sounds. Abdominal: General: Abdomen is flat. Bowel sounds are normal. Palpations: Abdomen is soft. Tenderness: There is no abdominal tenderness. There is no right CVA tenderness, left CVA tenderness, guarding or rebound. Musculoskeletal: General: Normal range of motion. Cervical back: Neck supple. Skin: General: Skin is warm and dry. Capillary Refill: Capillary refill takes less than 2 seconds. Neurological: General: No focal deficit present. Mental Status: She is alert and oriented to person, place, and time. Mental status is at baseline. Psychiatric: Mood and Affect: Mood normal. Behavior: Behavior normal. Thought Content: Thought content normal. Judgment: Judgment normal. [facility] Medical Decision Making Reviewed previous records: From clinic visits and previous admission(s) Summarize previous history: She has a PMhx of cyclical vomiting syndrome / cannabinoid hyperemsis, gastritis, GERD, esophagitis, IBS (w/ constipation & diarrhea), cyclical vomiting syndrome / cannabinoid hyperemesis, hypokalemia, TIA/stroke, migraines, HTN, A fib, essential tremor, anxiety and bipolar disorder. 06/10/22 - CT Abd/Pel = Moderate right-sided colonic stool burden. Otherwise, no acute findings in the abdomen or pelvis to explain the patient's abdominal pain. Critical care performed: No ED Course as of 08/18/22 0438 Time: 08/17 2107 Value: ECG 12 lead Comment: Sinus at 67 bpm, no acute injury pattern By: Sterling Briones MD Time: 08/17 2125 Value: WBC(!): 10.7 Comment: Chronic leukocytosis, stable By: Sterling Briones MD Time: 08/17 2125 Value: Hgb(!): 10.3 Comment: Chronic anemia By: Sterling Briones MD Time: 08/17 2313 Comment: Chem unremarkable LFT normal Trop neg x 1 By: Sterling Briones MD Time: 08/18 0000 Comment: Treated with droperidol, toradol, pepcid, and NS bolus. [She reports allergies to compazine, phenergan, and reglan] By: Sterling Briones MD Time: 08/18 159 Value: Cannabinoids, ur(!): Detected Comment: (Reviewed) By: Sterling Briones MD Time: 08/18 200 Comment: COVID / FLU / RSV = neg By: Sterling Briones MD Time: 08/18 200 Value: XR Chest 1 Vw Portable Comment: No acute cardiopulmonary disease. By: Sterling Briones MD Time: 08/18 222 Comment: Droperidol ordered for nausea --> patient refused and wants zofran. GUILLAUME improved. Now only reporting nausea. By: Sterling Briones MD Time: 08/18 336 Comment: Trop neg x 2 By: Sterling Briones MD Time: 08/18 403 Comment: Patient stable for discharge. She was updated and is agreeable with the plan. By: Sterling Briones MD Time: 08/18 408 Comment: DC / Follow-up instructions Your labs, vital signs, and physical exam were re-assuring. There are no signs of any dangerous or life threatening condition today. You are stable do follow- up with your primary care provider. Continue your home medication regimen. By: Sterling Briones MD Final diagnoses: Vasovagal episode Sterling Briones MD 08/18/22 0438 ILE EXAMINER * Eagle Gabriel RN - 08/17/2022 8:49 PM CST Patient arrives to the ED with complaints of palpitations, nausea, dizziness, and general unwell feeling. Patient states she has a history of A-fib. Patient states she has a history of a stroke too. Patient states at time of triage she feels weak and feels a little off. Patient also complains of dry mouth. Patient states she has epigastric pain. Patient states she has also had issues going to [facility] this week. ILE EXAMINER documented in this encounter Miscellaneous Notes * ED Procedure Note - Sterling Briones MD - 08/17/2022 9:06 PM CSTAssociated Order(s): ECG 12 lead Procedure ECG 12 lead Date/Time: 08/17/2022 9:06 PM Performed by: Sterling Briones MD Authorized by: Beverley Paige MD Rate: ECG rate: 67 ECG rate assessment: normal Rhythm: Rhythm: sinus rhythm Ectopy: Ectopy: none QRS: QRS axis: Normal QRS intervals: Normal Conduction: Conduction: normal ST segments: ST segments: Normal T waves: T waves: normal Interpretation: Interpretation: No acute injury pattern Recommended Follow-up: Recommended follow up: further workup in the ED Sterling Briones MD 08/17/222106 ILE EXAMINER documented in this encounter Plan of Treatment Upcoming Encounters Date Type Department Care Team (Latest Contact Info) Description 09/07/2024 8:30 AM TEXTILE EXAMINER Hospital Encounter [facility] [address] [place] [phone] Forest Catherine MD [address] [address] 09/07/2024 8:30 AM TEXTILE EXAMINER - 09/07/2024 9:00 AM TEXTILE EXAMINER Surgery [facility] [address] [place] [phone] Forest Catherine MD [address] [address] EGD w/Endo Flip & YI placement Scheduled Procedures Name Priority Associated Diagnoses Date/Ti me ESOPHAGOGASTRODUODENOSCOPY Hiatal hernia Gastroesophageal reflux disease, unspecified whether esophagitis present 09/07/2024 8:30 AM TEXTILE EXAMINER documented as of this encounter Procedures Procedure Name Priority Date/Time Associated Diagnosis Comments TROPONIN T HIGH-SENSITIVITY 6-HOUR Timed 08/18/2022 2:34 AM TEXTILE EXAMINER POCT HCG, URINE Routine 08/18/2022 12:38 AM TEXTILE EXAMINER URINALYSIS AND REFLEX TO MICROSCOPIC AND CULTURE STAT 08/18/2022 12:30 AM TEXTILE EXAMINER DRUGS OF ABUSE SCREEN, URINE WITHOUT CONFIRMATION STAT 08/18/2022 12:30 AM TEXTILE EXAMINER XR CHEST 1 VIEW ED 08/18/2022 12:17 AM TEXTILE EXAMINER INFLUENZA A/B, RSV, AND COVID-19 PCR Routine 08/18/2022 12:12 AM TEXTILE EXAMINER ECG 12-LEAD STAT 08/17/2022 9:02 PM TEXTILE EXAMINER TROPONIN T HIGH-SENSITIVITY SERIES (BASELINE, 2HR, 4HR, 6HR) STAT 08/17/2022 9:00 PM TEXTILE EXAMINER EGFR STAT 08/17/2022 9:00 PM TEXTILE EXAMINER DIFFERENTIAL AUTO STAT 08/17/2022 9:0 0 PM TEXTILE EXAMINER CBC WITH AUTO DIFFERENTIAL STAT 08/17/2022 9:00 PM TEXTILE EXAMINER LIPASE STAT 08/17/2022 9:00 PM TEXTILE EXAMINER COMPREHENSIVE METABOLIC PANEL STAT 08/17/2022 9:00 PM TEXTILE EXAMINER documented in this encounter Results * Troponin T high-sensitivity 6-hour (08/18/2022 2:34 AM TEXTILE EXAMINER) Trop T hs <6 <=14 ng/L [facility] ([place]) Comment: Interpretive Data For further hscTnT resources including the diagnostic algorithm and an aid in interpretation, copy and paste this link: https://nrl.testcatalog.org/show/hsTrop Current Interpretive Data last revised 2020. Trop T hs delta 0 ng/L [facility] ([place]) Trop T hs interp Insignificant [facility] ([place]) Blood 08/18/2022 2:34 AM TEXTILE EXAMINER 08/18/2022 2:38 AM TEXTILE EXAMINER Beverley Paige MD LAB BLOOD ORDERABLE S Final Result [facility] ([place]) 1 [facility] Department [place] [address] * POCT hCG, urine (08/18/2022 12:38 AM TEXTILE EXAMINER) HCG, ur, POC Negative Lot Number [id number] QC Backgroud Clear Acceptable QC Control Line Acceptable Urine 08/18/2022 12:3 8 AM TEXTILE EXAMINER Beverley Paige MD POINT OF CARE TEST ORDERABLES Final Result * (ABNORMAL) Drugs of Abuse Screen, Urine without Confirmation (08/18/2022 12:30 AM TEXTILE EXAMINER) Amphetamine, ur Not Detected CutOff 500ng/mL [facility] ([place]) Comment: Interpretive Data - Amphetamines: ??Samples containing greater than 500 ng/mL d-methamphetamine ??or other cross-reacting amphetamine compounds are reported as positive. ??Amphetamine immunoassays are subject to significant false positive rates due to cross-reactivity of non-amphetamine drugs. Current Interpretive Data was last reviewed 2018. Barbiturates, ur Not Detected CutOff 200ng/mL [facility] ([place]) Comment: Interpretive Data - Barbiturates: ??Samples containing greater than 200 ng/mL secobarbital or other cross-reacting barbiturate compounds are reported as positive. ??False positive and false negative results are possible. Current Interpretive Data was last reviewed 2018. Benzodiazepines, ur Not Detected CutOff 100ng/mL [facility] ([place]) Comment: Interpretive Data - Benzodiazepines: ??Samples containing greater than 100 ng/mL nordiazepam or other cross-reacting compounds are reported as positive. ?? False positive and false negative results are possible. ?? Current Interpretive Data was last reviewed 2018. Cannabinoids, ur Detected(A) CutOff 50 ng/mL [facility] ([place]) Comment: Interpretive Data - Cannabinoids: ??Samples containing greater than 50 ng/mL delta-9 THC -COOH or other cross-reacting compounds are reported as positive. ??False positive and false negative results are possible. ?? Current Interpretive Data was last reviewed 2018. Cocaine, ur Not Detected CutOff 150ng/mL [facility] ([place]) Comment: Interpretive Data - Cocaine: ??Samples containing greater than 150 ng/mL benzoylecgonine or other cross-reacting compounds are reported as positive. False positive and false negative results are possible. Current Interpretive Data was last reviewed 2018. Fentanyl, Ur Not Detected Cutoff 1 ng/mL [facility] ([place]) Comment: Interpretive Data - Fentanyls: ??Samples containing greater than 1 ng/mL fentanyl or other cross-reacting fentanyl compounds are reported as detected. ??False positive and false negative results are possible. Current Interpretive Data was last reviewed 2019. Methadone, ur Not Detected CutOff 300ng/mL [facility] ([place]) Comment: Interpretive Data - Methadone: ??Samples containing greater than 300 ng/mL d,l-methadone or other cross-reacting compounds are reported as positive. ??False positive and false negative results are possible. Current Interpretive Data was last reviewed 2018. Opiates, ur Not Detected CutOff 300ng/mL [facility] ([place]) Comment: Interpretive Data - Opiates: ??Samples containing greater than 300 ng/mL morphine or other cross-reacting compounds are reported as positive. ??False positive and false negative results are possible. Current Interpretive Data was last reviewed 2018. Oxycodone, ur Not Detected CutOff 100ng/mL [facility] ([place]) Comment: Interpretive Data - Oxycodone: ??Samples containing greater than 100 ng/mL oxycodone or other cross-reacting compounds are reported as positive. ??False positive and false negative results are possible. ?? Current Interpretive Data was last reviewed 2018. Phencyclidine, ur Not Detected CutOff 25 ng/mL [facility] ([place]) Comment: Interpretive Data - Phencyclidine: ??Samples containing greater than 25 ng/mL phencyclidine or other cross-reacting compounds are reported as positive. ??False positive and false negative results are possible. ?? Current Interpretive Data was last reviewed 2018. Urine Creatinine 15 mg/dL [facility] ([place]) Comment: Interpretive Data Urine Creatinine: < 10 mg/dL is extremely dilute = or > 10 but < 20 mg/dL is dilute = or > 20 mg/dL is normal Current Interpretive Data was last revised on 2017. Urine 08/18/2022 12:3 0 AM TEXTILE EXAMINER 08/18/2022 12:32 AM TEXTILE EXAMINER Narrative [facility] ([place]) - 08/18/2022 1:11 AM TEXTILE EXAMINER Drug of Abuse screening is performed by immunoassay for medical purposes only. ??This is not to be used for Pain Management purposes. Sterling Briones MD LAB URINE ORDERABLES Final Result [facility] ([place]) 1 [facility] Department of Laboratories [place], [place] [id number] * (ABNORMAL) Urinalysis reflex to microscopic and culture Urine (08/18/2022 12:30 AM TEXTILE EXAMINER) Color, ur Straw Yellow [facility] ([place]) Clarity, ur Clear Clear [facility] ([place]) Specific gravity, ur 1.002(L) 1.003 - 1.030 [facility] ([place]) pH, urine 7.0 [facility] ([place]) Protein, ur ql Negative Negative [facility] ([place]) Glucose, ur ql Negative Negative [facility] ([place]) Ketones, ur Negative Negative [facility] ([place]) Bilirubin, ur Negative Negative [facility] ([place]) Blood, ur Negative Negative [facility] ([place]) Urobilinogen, ur <2.0 <2.0 mg/dL [facility] ([place]) Nitrite, ur Negative Negative [facility] ([place]) Leukocyte esterase, ur Negative Negative [facility] ([place]) UA reflex comment Reflex conditions for microscopic UA and culture not met. [facility] ([place]) Urine 08/18/2022 12:3 0 AM TEXTILE EXAMINER 08/18/2022 12:32 AM TEXTILE EXAMINER Narrative [facility] ([place]) - 08/18/2022 12:56 AM TEXTILE EXAMINER ?? Urine pH is affected by diet, medications, systemic acid-base disturbances, and renal tubular function. ??pH may affect urinary stone formation. ??For example, urine pH below 6.0 may help reduce the tendency for calcium phosphate stones and pH greater than 6.0 may reduce the tendency for uric acid stone formation. Source: [place] Noted. Last revised 09-10-2017 us Beverley Paige MD LAB MICROBIOLOGY - GENERAL ORDERABLES Final Result [facility] ([place] 1 [facility] Department [place] [address] * XR Chest 1 Vw Portable (08/18/2022 12:17 AM TEXTILE EXAMINER) Anatomical Region Laterality Modality Body, Chest N/A Computed Radiogr aphy 08/18/2022 12:4 0 AM TEXTILE EXAMINER Narrative 08/18/2022 12:40 AM TEXTILE EXAMINER EXAM DESCRIPTION: ?? XR CHEST 1 VIEW REASON FOR STUDY: ?? infection ?? Complaints of palpitations, nausea, dizziness, and general unwell feeling for 2-3 days. ?? Hx of AFIB, stroke ?? TECHNIQUE: ?? Frontal ??radiographic view of the chest acquired. COMPARISON: 07/06/2022 FINDINGS: LUNGS/PLEURA: ?? No focal consolidation or pneumothorax. No pleural effusion. HEART/MEDIASTINUM: ?? Heart size is normal. Normal mediastinal and hilar contours. HARDWARE/LINES/TUBES: ?? None. BONES: ?? No acute findings. OTHER: ?? No other significant finding. IMPRESSION: ??No acute cardiopulmonary disease. THIS IS AN ELECTRONICALLY VERIFIED FINAL REPORT 08/18/2022 12:40 AM - Electronically signed by ??David Hernandez M.D. RW: [email or web address] D: ??08/18/2022 12:40 AM T: ??08/18/2022 12:40 AM Report ID: [id number] Reading Location: ??[id number] Procedure Note David Hernandez MD - 08/18/2022 EXAM DESCRIPTION: XR CHEST 1 VIEW REASON FOR STUDY: infection Complaints of palpitations, nausea, dizziness, and general unwell feelingfor 2-3 days. Hx of AFIB, stroke TECHNIQUE: Frontal radiographic view of the chest acquired. COMPARISON: 07/06/2022 FINDINGS: LUNGS/PLEURA: No focal consolidation or pneumothorax. No pleuraleffusion. HEART/MEDIASTINUM: Heart size is normal. Normal mediastinal and hilar contours. HARDWARE/LINES/TUBES: None. BONES: No acute findings. OTHER: No other significant finding. IMPRESSION: No acute cardiopulmonary disease. THIS IS AN ELECTRONICALLY VERIFIED FINAL REPORT 08/18/2022 12:40 AM - Electronically signed by David Hernandez M.D. RW: YOSSI Report ID: [id number] Reading Location: [id number] us Sterling Briones MD IMG XR PROCEDURES Final Re sult * Influenza A/B, RSV, and COVID-19 PCR Nasopharyngeal (08/18/2022 12:12 AM TEXTILE EXAMINER) COVID-19 RNA Negative Negative [facility] ([place]) Influenza A RNA Negative Negative [facility]) Influenza B RNA Negative Negative [facility] ([place]) RSV RNA Negative Negative [facility] ([place]) Comment: Interpretive data: This test is performed using the [employer] Xpert Xpress CoV-2/Flu/RSV plus assay. This is a multiplex, real-time reverse transcriptase PCR assay intended for the qualitative detection of nucleic acid from SARS-CoV-2, influenza A, influenza B, and respiratory syncytial virus. This assay has been reviewed by the FDA for Emergency Use Authorization (EUA). The performance characteristics have been verified by the performing laboratory. Results must be considered in the clinical context, and a negative result does not rule out infection. Interpretive Data last revised 2021. Nasopharyngeal 08/18/2022 12 :12 AM TEXTILE EXAMINER 08/18/2022 12:14 AM TEXTILE EXAMINER Narrative [facility] ([place]) - 08/18/2022 12:58 AM TEXTILE EXAMINER Is the Patient experiencing symptoms consistent with COVID?->Unknown Reason for testing?->Symptomatic us Sterling Briones MD LAB MICROBIOLOGY - GENERAL ORDERABLES Final Result Performing Organization Address City/[facility]/ZIP Co de Phone Number [facility] ([place]) 1 [facility] Department [place] [address] * ECG 12 lead (08/17/2022 9:02 PM TEXTILE EXAMINER) 08/17/2022 9:02 PM TEXTILE EXAMINER Narrative [facility] - 08/18/2022 7:42 AM TEXTILE EXAMINER Vent Rate: 67 bpm RR Interval: 886 msec VA Interval: 144 msec QRS Duration: 98 msec QT Interval: 412 msec QTC Interval: 428 msec P-R-T [place]: 50 - 46 - 53 degrees SINUS RHYTHM NORMAL ECG COMPARED TO PREVIOUS TRACING, HEART RATE IS NOW SLOWER and PACs no longer seen Electronically Signed By: Dr Rip Huizar us Beverley Paige MD ECG ORDERABLES Fin al Result Performing Organization Address [facility] Co de Phone Number [facility] * eGFR (08/17/2022 9:00 PM TEXTILE EXAMINER) eGFR 65 mL/min/1. 73 m2 [facility] ([place]) Comment: Interpretive Data Reference Interval Normal [...] interpretive data was last reviewed 2021. Blood 08/17/2022 9:00 PM TEXTILE EXAMINER 08/17/2022 9:08 PM TEXTILE EXAMINER us Beverley Paige MD LAB BLOOD ORDERABLE S Final Result [facility] ([place]) 1 [facility] Department [place] [address] * (ABNORMAL) Differential, auto (08/17/2022 9:00 PM TEXTILE EXAMINER) Neutrophil abs 7.0(H) 1.7 - 6.5 K/cumm [facility] ([place]) Imm gran abs 0.0 0.0 - 0.1 K/cumm [facility] ([place]) Lymphocyte abs 2.3 0.8 - 3.3 K/cumm [facility] ([place]) Monocyte abs 1.1(H) 0.2 - 0.8 K/cumm [facility] ([place]) Eosinophil abs 0.2 0.0 - 0.5 K/cumm [facility] ([place]) Basophil abs 0.1 0.0 - 0.1 K/cumm [facility] ([place]) Neutrophil pct 65.4 % [facility] ([place]) Comment: Interpretive Data Percent cell count reference ranges are not reported, since discordance with absolute values may lead to misinterpretation of CBC data. Current Interpretive Data was last revised on 2017. Imm gran pct 0.3 % [facility] ([place]) Comment: Interpretive Data Percent cell count reference ranges are not reported, since discordance with absolute values may lead to misinterpretation of CBC data. Current Interpretive Data was last revised on 2017. Lymphocyte pct 21.4 % [facility] ([place]) Comment: Interpretive Data Percent cell count reference ranges are not reported, since discordance with absolute values may lead to misinterpretation of CBC data. Current Interpretive Data was last revised on 2017. Monocyte pct 10.0 % [facility] ([place]) Comment: Interpretive Data Percent cell count reference ranges are not reported, since discordance with absolute values may lead to misinterpretation of CBC data. Current Interpretive Data was last revised on 2017. Eosinophil pct 2.2 % [facility] ([place]) Comment: Interpretive Data Percent cell count reference ranges are not reported, since discordance with absolute values may lead to misinterpretation of CBC data. Current Interpretive Data was last revised on 2017. Basophil pct 0.7 % [facility] ([place]) Comment: Interpretive Data Percent cell count reference ranges are not reported, since discordance with absolute values may lead to misinterpretation of CBC data. Current Interpretive Data was last revised on 2017. Blood 08/17/2022 9:00 PM TEXTILE EXAMINER 08/17/2022 9:08 PM TEXTILE EXAMINER us Beverley Paige MD LAB BLOOD ORDERABLE S Final Result [facility] ([place]) 1 [facility] Department [place] [address] * Troponin T high-sensitivity series (baseline, 2hr, 4hr, 6hr) (08/17/2022 9:00 PM TEXTILE EXAMINER) Trop T hs <6 <=14 ng/L [facility] ([place]) Comment: Interpretive Data For further hscTnT resources including the diagnostic algorithm and an aid in interpretation, copy and paste this link: https://nrl.testcatalog.org/show/hsTrop Current Interpretive Data last revised 2020. Blood 08/17/2022 9:00 PM TEXTILE EXAMINER 08/17/2022 9:08 PM TEXTILE EXAMINER Beverley Paige MD LAB BLOOD ORDERABLE S Final Result [facility] ([place]) 1 [facility] Department [place] [address] * Lipase (08/17/2022 9:00 PM TEXTILE EXAMINER) Lipase 44 10 - 99 Units/L [facility] ([place]) Blood (Blood, Venous) 08/17/2022 9:00 PM TEXTILE EXAMINER 08/17/2022 9:08 PM TEXTILE EXAMINER Beverley Paige MD LAB BLOOD ORDERABLE S Final Result Performing Organization Address [facility] Co de Phone Number [facility] ([place]) 1 [facility] [place] [address] * Comprehensive metabolic panel (08/17/2022 9:00 PM TEXTILE EXAMINER) Sodium 141 135 - 145 mmol/L [facility] Potassium, pl 3.4 3.3 - 4.9 mmol/L [facility] ([place]) Chloride 105 97 - 110 mmol/L [facility] ([place]) CO2 26 22 - 32 mmol/L [facility] ([place]) Anion gap 10 2 - 15 mmol/L [facility] ([place]) BUN 9 8 - 25 mg/dL [facility] ([place]) Creatinine 1.03 0.60 - 1.10 mg/dL [facility] ([place]) Glucose 137 70 - 199 mg/dL [facility] ([place]) [...] classification and Diagnosis of Diabetes Diabetes Care 2017;40 (Suppl. 1):S11. Current interpretive data was last revised 2017. Calcium 9.2 8.5 - 10.3 mg/dL [facility] ([place]) Bilirubin, total <0.2 0.1 - 1.2 mg/dL [facility] ([place]) Protein, pl 7.2 6.5 - 8.5 g/dL [facility] ([place]) Albumin 4.2 3.5 - 5.0 g/dL [facility] ([place]) Alk phos 101 40 - 130 Units/L [facility] ([place]) ALT 16 7 - 45 Units/L [facility] ([place]) AST 24 10 - 45 Units/L [facility] ([place]) Blood 08/17/2022 9:00 PM TEXTILE EXAMINER 08/17/2022 9:08 PM TEXTILE EXAMINER us Beverley Paige MD LAB BLOOD ORDERABLE S Final Result [facility] ([place]) 1 [facility] Department [place] [address] * (ABNORMAL) CBC with auto differential (08/17/2022 9:00 PM TEXTILE EXAMINER) WBC 10.7(H) 3.8 - 9.9 K/cumm [facility] ([place]) Hgb 10.3(L) 11.9 - 15.5 g/dL [facility] ([place]) Hct 32.6(L) 35.6 - 45.5 % [facility] ([place]) Plt 353 150 - 400 K/cumm [facility] ([place]) MPV 10.1 9.1 - 12.3 fL [facility] ([place]) RBC 3.79(L) 3.90 - 5.20 M/cumm [facility] ([place]) MCV 86.0 81.3 - 96.4 fL [facility] ([place]) MCH 27.2 27.1 - 33.3 pg [facility] ([place]) MCHC 31.6(L) 32.3 - 35.7 g/dL [facility] ([place]) RDW CV 14.3 11.1 - 14.9 % [facility] ([place]) RDW SD 45.1 35.7 - 48.1 fL [facility] ([place]) NRBC abs 0.00 0.00 - 0.01 K/cumm [facility] ([place]) Blood (Blood, Venous) 08/17/2022 9:00 PM TEXTILE EXAMINER 08/17/2022 9:08 PM TEXTILE EXAMINER us Beverley Paige MD LAB BLOOD ORDERABLE S Final Result [facility] ([place]) 1 [facility] [place] [address] documented in this encounter Visit Diagnoses Diagnosis Vasovagal episode- Primary Syncope and collapse Hiatal hernia Diaphragmatic hernia without mention of obstruction or gangrene Gastroesophageal reflux disease, unspecified whether esophagitis present documented in this encounter Administered Medications Inactive Administered Medications - up to 3 most recent administrations Medication Order MAR Action Action Date Dose Rate Site dextrose 5% and sodium chloride 0.9% infusion (premix) 250 mL/hr, intravenous, Continuous, Starting on 08/18/22 at 0225, For 4 hours New Bag 08/18/2022 2:31 AM TEXTILE EXAMINER 250 mL/hr 250 mL/hr diphenhydrAMINE (BENADRYL) injection 25 mg 25 mg, intravenous, Administer over 2 Minutes, Once, On Thu08/18/22 at 0228, For 1 dose Given 08/18/2022 2:31 AM TEXTILE EXAMINER 25 mg droperidoL (INAPSINE) injection 1.25 mg 1.25 mg, intravenous, Administer over 5 Minutes, Once, On Thu08/18/22 at 0001, For 1 dose Given 08/18/2022 12:05 AM TEXTILE EXAMINER 1.25 mg famotidine (PEPCID) injection 20 mg 20 mg, intravenous, Administer over 2 Minutes, Once, On Thu08/18/22 at 0001, For 1 dose Given 08/18/2022 12:06 AM TEXTILE EXAMINER 20 mg ketorolac (TORADOL) 30 mg/mL (1 mL) injection 30 mg 30 mg, intravenous, Once, On Thu08/18/22 at 0001, For 1 dose Given 08/18/2022 12:05 AM TEXTILE EXAMINER 30 mg ondansetron (ZOFRAN) injection 4 mg 4 mg, intravenous, Administer over 2 Minutes, Once, On Thu08/18/22 at 0228, For 1 dose Given 08/18/2022 2:31 AM TEXTILE EXAMINER 4 mg sodium chloride 0.9% bolus 2,000 mL 2,000 mL, intravenous, Once, On Thu08/18/22 at 0001, For 1 dose New Bag 08/18/2022 12:05 AM TEXTILE EXAMINER 1,000 mL documented in this encounter Active and Recently Administered Medications Times are shown in TEXTILE EXAMINER. Scheduled Medication Order 08/16/2022 08/17/2022 08/18/2022 diphenhydrAMINE (BENADRYL) injection 25 mg (COMPLETED) 25 mg, intravenous, Administer over 2 Minutes, Once, On Thu08/18/22 at 0228, For 1 dose 0231 (Given - Provid er: Genevieve Garibay RN) droperidoL (INAPSINE) injection 1.25 mg (COMPLETED) 1.25 mg, intravenous, Administer over 5 Minutes, Once, On Thu08/18/22 at 0001, For 1 dose 0005 (Given - Provid er: Shannon Neves RN) famotidine (PEPCID) injection 20 mg (COMPLETED) 20 mg, intravenous, Administer over 2 Minutes, Once, On Thu08/18/22 at 0001, For 1 dose 0006 (Given - Provid er: Shannon Neves RN) ketorolac (TORADOL) 30 mg/mL (1 mL) injection 30 mg (COMPLETED) 30 mg, intravenous, Once, On Thu08/18/22 at 0001, For 1 dose 0005 (Given - Provid er: Shannon Neves RN) ondansetron (ZOFRAN) injection 4 mg (COMPLETED) 4 mg, intravenous, Administer over 2 Minutes, Once, On Thu08/18/22 at 0228, For 1 dose 0231 (Given - Provid er: Genevieve Garibay RN) sodium chloride 0.9% bolus 2,000 mL (COMPLETED) 2,000 mL, intravenous, Once, On Thu08/18/22 at 0001, For 1 dose 0005 (New Bag - Prov ider: Shannon Neves RN - Comment: first bag)[id number] (Stopped - Provider: Genevieve Garibay RN) Continuous Medication Order 08/16/2022 08/17/2022 08/18/2022 dextrose 5% and sodium chloride 0.9% infusion (premix) 250 mL/hr, intravenous, Continuous, Starting on 08/18/22 at 0225, For 4 hours 0231 (New Bag - Prov ider: Genevieve Garibay RN)[id number] (Stopped - Provider: Genevieve Garibay RN) documented in this encounter Orders Medications Ordered That Rg ht Not Have Been Administered Count Last Ordered Date First Ordered Date droperidoL (INAPSINE) injection 1.25 mg 1 1 10/19/2021 Nursing Count Last Ordered Date First Orde red Date MISCELLANEOUS NURSING CARE ORDER (SPECIFY) 1 08/17/2022 IV Count Last Ordered Date First Orde red Date SALINE LOCK IV 1 08/17/2022 documented in this encounter Additional Health Concerns Infection Onset Date Last Indicated Resolved Time COVID: Suspected 08/18/2022 08/18/2022 08/18/2022 12:59 AM TEXTILE EXAMINER documented as of this encounter Care Teams Bullet Maker Relationship Specialty Start Date End Date Parmjit Dai MD PCP - General 12/31/20 Mere Landa NP Nurse Practitioner 02/07/20 Tico Burton MD Surgeon General Surgery 08/09/21 documented as of this encounter
--- OUTSIDE RECORDS SUMMARY | 2024-08-16 04:34 | XMS_ITS | Encounter Summary ---
Author Organization Formerly [facility] Address [address] [place] [address] Care Team Providers Care Information Security Architect Name Role Phone Mere Landa NP Unavailable [phone] Parmjit Dai MD Primary Care Provider [phone] Tico Burton MD Unavailable [phone] Reason for Visit * Reason Comments Rapid Heart Rate Encounter Details Date Type Department Care Team (Late st Contact Info) Description 07/06/2022 2:03 AM PARTY PLAN SALES CONSULTANT - 07/06/2022 5:33 AM [facility] Emergency Department [address] [place] [address] Kat Biggs MD 1 [facility] [place] [address] Palpitations (Primary Dx) Discharge Disposition: Discharge to home [...] on file Legal Sex Female 10:06 AM PARTY PLAN SALES CONSULTANT Gender Identity Female 06/17/2024 7:02 AM CDT Sexual Orientation Not on file documented as of this encounter Last Filed Vital Signs Vital Sign Reading Time Taken Comments Blood Pressure 110/57 07/06/2022 5:00 AM PARTY PLAN SALES CONSULTANT Pulse 88 07/06/2022 5:00 AM PARTY PLAN SALES CONSULTANT Temperature 36.7 ??C (98 ??F) 07/06/2022 2:07 AM PARTY PLAN SALES CONSULTANT Respiratory Rate 14 07/06/2022 5:00 AM PARTY PLAN SALES CONSULTANT Oxygen Saturation 97% 07/06/2022 5:00 AM PARTY PLAN SALES CONSULTANT Inhaled Oxygen Concentration - - Weight 63.5 kg (140 lb) 07/06/2022 2:05 AM PARTY PLAN SALES CONSULTANT Height 162.6 cm (5' 4 ) 07/06/2022 2:05 AM PARTY PLAN SALES CONSULTANT Body Mass Index 24.03 07/06/2022 2:05 AM PARTY PLAN SALES CONSULTANT documented in this encounter Discharge Instructions * Discharge Instructions* Kat Biggs MD - 07/06/2022 5:24 AM PARTY PLAN SALES CONSULTANT Obtain the Holter monitor. They will call you to arrange it. Follow-up with your doctor in 2-3 days. Return with worsening symptoms or with concerns. Y PLAN SALES CONSULTANT * Attachments The following attachments cannot be sent through Care Everywhere. * Heart Palpitations ([employer]) (Persian) documented in this encounter Medications at Time of Discharge apixaban (ELIQUIS) 5 mg tablet Take 1 tablet (5 mg total) by mouth 2 (two) times a day atorvastatin (LIPITOR) 40 mg tabletIndications:h yperlipidemia Take 1 tablet (40 mg total) by mouth daily 30 tablet 1 metoprolol XL (TOPROL-XL) 25 mg extended release [...] MEALS 60 capsule 5 2 04/17/20 23 nortriptyline (PAMELOR) 25 mg capsule [...] 09/02/19 23 documented as of this encounter Discharge Disposition Disposition Code Departure Means Destination Discharge to home or self care documented in this encounter ED Notes * Kat Biggs MD - 07/06/2022 2:35 AM CST HPI Chief Complaint Patient presents with Rapid Heart Rate HPI Patient History: This is a 52-year-old female with a history IBS, marijuana use, cyclical vomiting syndrome, chronicnausea, TIA, bipolar, hypertension, GERD, atrial fibrillation on Eliquis who presents with racing heart. The patient states she woke up and her heart was racing and she had a hard time catching her breath. She states she felt like it would not go away so she came in. Now she states her arms and legs are a little bit numb and tingly for the racing heart has resolved. She also has some burning in her upper abdomen move/lower chest. She states she is been sick with a cough for about a week and that her grandson is sick but she does not know with what. She states they have been treating him for avirus. She denies fever, chills, nausea, vomiting. Patient Active Problem List Diagnosis Date Noted [...] syndrome 08/09/2021 Bipolar affect, depressed (CMS/HCC) ([facility]) 08/09/2021 Intussusception intestine (CMS/HCC) ([facility]) 08/09/2021 Hypertension 08/08/2021 Abdominal pain, generalized 08/08/2021 Atrial fibrillation (CMS/HCC) ([facility]) 05/15/2020 Essential tremor 10/12/2018 Jerky body movements 10/12/2018 Irritable bowel syndrome with both constipation and diarrhea 02/23/2018 Orthostatic dizziness 09/16/2016 Palpitations 07/29/2016 Migraine headache 07/29/2016 Past Medical History: Diagnosis Date A-fib (CMS/HCC) ([facility]) Anxiety Arthritis Bipolar affect, depressed (CMS/HCC) ([facility]) Cyclic vomiting syndrome Depression Headache, tension-type Hypertension Hypotension IBS (irritable bowel syndrome) Migraine Stroke ([facility]) ([facility]) Weight loss Past [...] date: 1983 Quit date: 2000 Years since quittin.8 Smokeless tobacco: Never Tobacco comments: off and [...] Constitutional: Negative for chills. HENT: Negative for hearing loss. Eyes: Negative for itching. Respiratory: Positive for cough and shortness of breath. Cardiovascular: Positive for palpitations. Gastrointestinal: Negative for constipation. Endocrine: Negative for heat intolerance. Genitourinary: Negative for dysuria. Musculoskeletal: Negative for back pain. Skin: Negative for rash. Allergic/Immunologic: Negative for food allergies. Neurological: Positive for numbness. Negative for facial asymmetry. Hematological: Negative for adenopathy. Psychiatric/Behavioral: Negative for hallucinations. All other systems reviewed and are negative. Breast: Negative for tenderness. Physical Exam ED Triage Vitals Temp Pulse Resp BP SpO2 07/06/2220607/06/2220607/06/2220407/06/2220607/06/22204 36.7 ??C (98 ??F) 86 18 114/70 100 % Temp src Heart Rate Source Patient Position BP Location FiO2 (%) 07/06/22206 -- -- -- -- Temporal Height Height Method Weight Weight Method 07/06/2220407/06/2220407/06/2220407/06/22204 1.626 m (5' 4 ) Stated 63.5 kg (140 lb) Stated Physical Exam Vitals and nursing note reviewed. Constitutional: General: She is not in acute distress. Appearance: Normal appearance. She is normal weight. She is not ill-appearing, toxic-appearing or diaphoretic. Comments: Patient is extremely anxious and hyperventilating slightly HENT: Head: Normocephalic and atraumatic. Right Ear: External ear normal. Left Ear: External ear normal. Nose: Nose normal. Mouth/Throat: Mouth: Mucous membranes are dry. Pharynx: Oropharynx is clear. Eyes: Extraocular Movements: Extraocular movements intact. Conjunctiva/sclera: Conjunctivae normal. Pupils: Pupils are equal, round, and reactive to light. Cardiovascular: Rate and Rhythm: Normal rate and regular rhythm. Pulses: Normal pulses. Heart sounds: Normal heart sounds. Pulmonary: Effort: Pulmonary effort is normal. Breath sounds: Normal breath sounds. No wheezing. Abdominal: General: Bowel sounds are normal. Palpations: Abdomen is soft. Tenderness: There is no abdominal tenderness. There is no right CVA tenderness or left CVA tenderness. Musculoskeletal: General: Normal range of motion. Cervical back: Normal range of motion and neck supple. Right lower leg: No edema. Left lower leg: No edema. Skin: General: Skin is warm. Capillary Refill: Capillary refill takes less than 2 seconds. Findings: No erythema. Neurological: General: No focal deficit present. Mental Status: She is alert and oriented to person, place, and time. Cranial Nerves: No cranial nerve deficit. Motor: No weakness. Psychiatric: Mood and Affect: Mood normal. Behavior: Behavior normal. Thought Content: Thought content normal. Comments: Anxious [facility] ED Course as of 07/06/22527 Time: 07/06 455 Comment: Patient feels much better. Will f/u as OP By: Kat Biggs MD Time: 07/06 525 Comment: EKG done at 2 7 atrial fibrillation rate [address] changes By: Kat Biggs MD Time: 07/06 526 Comment: Patient is noted to be in sinus rhythm while in the room on the monitor. By: Kat Biggs MD Final diagnoses: Palpitations Kat Biggs MD 07/06/22527 Y PLAN SALES CONSULTANT * Shannon Neves RN - 07/06/2022 2:04 AM CST Pt states she woke up with a racing heart. Pt states that she had trouble catching her breath. Pt states she has a hx of afib. Pt has burning in her chest. Y PLAN SALES CONSULTANT Y PLAN SALES CONSULTANT documented in this encounter Plan of Treatment Upcoming Encounters Date Type Department Care Team (Latest Contact Info) Description 09/07/2024 8:30 AM PARTY PLAN SALES CONSULTANT Hospital Encounter [facility] [address] [place] [phone] Forest Catherine MD [address] [address] 09/07/2024 8:30 AM PARTY PLAN SALES CONSULTANT - 09/07/2024 9:00 AM PARTY PLAN SALES CONSULTANT Surgery [facility] [address] [place] [phone] Forest Catherine MD [address] [address] EGD w/Endo Flip & YI placement Scheduled Procedures Name Priority Associated Diagnoses Date/Ti me ESOPHAGOGASTRODUODENOSCOPY Hiatal hernia Gastroesophageal reflux disease, unspecified whether esophagitis present 09/07/2024 8:30 AM PARTY PLAN SALES CONSULTANT documented as of this encounter Procedures Procedure Name Priority Date/Time Associated Diagnosis Comments XR CHEST 1 VIEW ED 07/06/2022 4:14 AM PARTY PLAN SALES CONSULTANT TROPONIN T HIGH-SENSITIVITY 2-HOUR Timed 07/06/2022 4:12 AM PARTY PLAN SALES CONSULTANT INFLUENZA A/B, RSV, AND COVID-19 PCR Routine 07/06/2022 2:43 AM PARTY PLAN SALES CONSULTANT TROPONIN T HIGH-SENSITIVITY SERIES (BASELINE, 2HR, 4HR, 6HR) STAT 07/06/2022 2:14 AM PARTY PLAN SALES CONSULTANT EGFR STAT 07/06/2022 2:14 AM PARTY PLAN SALES CONSULTANT DIFFERENTIAL AUTO STAT 07/06/2022 2:1 4 AM PARTY PLAN SALES CONSULTANT CBC WITH AUTO DIFFERENTIAL STAT 07/06/2022 2:14 AM PARTY PLAN SALES CONSULTANT COMPREHENSIVE METABOLIC PANEL STAT 07/06/2022 2:14 AM PARTY PLAN SALES CONSULTANT ECG 12-LEAD STAT 07/06/2022 2:07 AM PARTY PLAN SALES CONSULTANT documented in this encounter Results * XR Chest 1 Vw Portable (07/06/2022 4:14 AM PARTY PLAN SALES CONSULTANT) Anatomical Region Laterality Modality Body, Chest N/A Computed Radiogr aphy 07/06/2022 4:31 AM PARTY PLAN SALES CONSULTANT Narrative 07/06/2022 4:32 AM PARTY PLAN SALES CONSULTANT EXAM DESCRIPTION: ?? XR CHEST 1 VIEW REASON FOR STUDY: ?? Palpitations ?? Pt states she woke up with a racing heart. ??Pt states that she had trouble catching her breath. ??Pt states she has a hx of afib. ??Pt has burning in her chest. Former smoker ?? TECHNIQUE: ?? Frontal ??radiographic view of the chest acquired. COMPARISON: None Available. FINDINGS: LUNGS/PLEURA: ?? No focal consolidation or pneumothorax. No pleural effusion. HEART/MEDIASTINUM: ?? Heart size is normal. Normal mediastinal and hilar contours. HARDWARE/LINES/TUBES: ?? None. BONES: ?? No acute findings. OTHER: ?? No other significant finding. IMPRESSION: ??No acute cardiopulmonary disease. THIS IS AN ELECTRONICALLY VERIFIED FINAL REPORT 07/06/2022 4:32 AM - Electronically signed by ??David Hernandez M.D. RW: YOSSI D: ??07/06/2022 4:32 AM T: ??07/06/2022 4:32 AM Report ID: [id number] Reading Location: ??[id number] Procedure Note David Hernandez MD - 07/06/2022 EXAM DESCRIPTION: XR CHEST 1 VIEW REASON FOR STUDY: Palpitations Pt states she woke up with a racing heart. Pt states that she had trouble catching her breath. Pt states she has a hx of afib. Pt has burning inher chest. Former smoker TECHNIQUE: Frontal radiographic view of the chest acquired. COMPARISON: None Available. FINDINGS: LUNGS/PLEURA: No focal consolidation or pneumothorax. No pleuraleffusion. HEART/MEDIASTINUM: Heart size is normal. Normal mediastinal and hilar contours. HARDWARE/LINES/TUBES: None. BONES: No acute findings. OTHER: No other significant finding. IMPRESSION: No acute cardiopulmonary disease. THIS IS AN ELECTRONICALLY VERIFIED FINAL REPORT 07/06/2022 4:32 AM - Electronically signed by David Hernandez M.D. RW: YOSSI Report ID: [id number] Reading Location: [place] [address] Kat Biggs MD IMG XR PROCEDURES Final R esult * Troponin T high-sensitivity 2-hour (07/06/2022 4:12 AM PARTY PLAN SALES CONSULTANT) Trop T hs <6 <=14 ng/L [facility] ([place]) Comment: Interpretive Data For further hscTnT resources including the diagnostic algorithm and an aid in interpretation, copy and paste this link: https://nrl.testcatalog.org/show/hsTrop Current Interpretive Data last revised 2020. Trop T hs delta 0 ng/L [facility] ([place]) Trop T hs interp Insignificant [facility] ([place]) Blood 07/06/2022 4:12 AM PARTY PLAN SALES CONSULTANT 07/06/2022 4:18 AM PARTY PLAN SALES CONSULTANT Kat Biggs MD LAB BLOOD ORDERABLES Cristy l Result [facility] ([place]) 1 [facility] [place] [address] * Influenza A/B, RSV, and COVID-19 PCR Nasopharyngeal (07/06/2022 2:43 AM PARTY PLAN SALES CONSULTANT) Pathologist [facility] COVID-19 RNA Negative Negative [facility] ([place]) Influenza A RNA Negative Negative [facility] ([place]) Influenza B RNA Negative Negative [facility] ([place]) RSV RNA Negative Negative [facility] ([place]) Comment: Interpretive data: This test is performed using the [employer] Xpert Xpress CoV-2/Flu/RSV plus assay. This is [...] infection. Interpretive Data last revised 2021. Nasopharyngeal 07/06/2022 2: 43 AM PARTY PLAN SALES CONSULTANT 07/06/2022 2:48 AM PARTY PLAN SALES CONSULTANT Narrative [facility] ([place]) - 07/06/2022 3:51 AM PARTY PLAN SALES CONSULTANT Is the Patient experiencing symptoms consistent with COVID?->Yes Date of Symptom Onset->06/29/22 Reason for testing?->Bed placement or semi-private room Kta Biggs MD LAB MICROBIOLOGY - GENERA L ORDERABLES Final Result [facility] ([place]) 1 [facility] [place] [address] * eGFR (07/06/2022 2:14 AM PARTY PLAN SALES CONSULTANT) Pathologist [facility] eGFR 105 mL/min/1. 73 m2 [facility] ([place]) Comment: Interpretive Data Reference Interval Normal ?>/= [...] interpretive data was last reviewed 2021. Blood 07/06/2022 2:14 AM PARTY PLAN SALES CONSULTANT 07/06/2022 2:19 AM PARTY PLAN SALES CONSULTANT Kat Biggs MD LAB BLOOD ORDERABLES Cristy beebe Result [facility] ([place]) 1 [facility] [place] [address] * (ABNORMAL) Differential, auto (07/06/2022 2:14 AM PARTY PLAN SALES CONSULTANT) Neutrophil abs 9.0(H) 1.7 - 6.5 K/cumm [facility] ([place]) Imm gran abs 0.0 0.0 - 0.1 K/cumm [facility] ([place]) Lymphocyte abs 1.7 0.8 - 3.3 K/cumm [facility] ([place]) Monocyte abs 1.0(H) 0.2 - 0.8 K/cumm [facility] ([place]) Eosinophil abs 0.1 0.0 - 0.5 K/cumm [facility] ([place]) Basophil abs 0.0 0.0 - 0.1 K/cumm [facility] ([place]) Neutrophil pct 76.4 % [facility] ([place]) Comment: Interpretive [...] was last revised on 2017. Lymphocyte pct 14.2 % [facility] ([place]) Comment: Interpretive Data Percent cell count reference ranges are not reported, since discordance with absolute values may lead to misinterpretation of CBC data. Current Interpretive Data was last revised on 2017. Monocyte pct 8.1 % [facility] ([place]) Comment: Interpretive Data Percent cell count reference ranges are not reported, since discordance with absolute values may lead to misinterpretation of CBC data. Current Interpretive Data was last revised on 2017. Eosinophil pct 0.7 % [facility] ([place]) Comment: Interpretive Data Percent cell count reference ranges are not reported, since discordance with absolute values may lead to misinterpretation of CBC data. Current Interpretive Data was last revised on 2017. Basophil pct 0.3 % [facility] ([place]) Comment: Interpretive Data Percent cell count reference ranges are not reported, since discordance with absolute values may lead to misinterpretation of CBC data. Current Interpretive Data was last revised on 2017. Blood 07/06/2022 2:14 AM PARTY PLAN SALES CONSULTANT 07/06/2022 2:19 AM PARTY PLAN SALES CONSULTANT us Kat Biggs MD LAB BLOOD ORDERABLES Cristy l Result [facility] ([place]) 1 [facility] [place] [address] * Troponin T high-sensitivity series (baseline, 2hr, 4hr, 6hr) (07/06/2022 2:14 AM PARTY PLAN SALES CONSULTANT) Trop T hs <6 <=14 ng/L [facility] ([place]) Comment: Interpretive Data For further hscTnT resources including the diagnostic algorithm and an aid in interpretation, copy and paste this link: https://nrl.testcatalog.org/show/hsTrop Current Interpretive Data last revised 2020. Blood 07/06/2022 2:14 AM PARTY PLAN SALES CONSULTANT 07/06/2022 2:19 AM PARTY PLAN SALES CONSULTANT Kat Biggs MD LAB BLOOD ORDERABLES Cristy beebe Result [facility] ([place]) 1 [facility] [place] [address] * (ABNORMAL) Comprehensive metabolic panel (07/06/2022 2:14 AM PARTY PLAN SALES CONSULTANT) Sodium 141 135 - 145 mmol/L [facility] ([place]) Potassium, pl 3.4 3.3 - 4.9 mmol/L [facility] ([place]) Chloride 104 97 - 110 mmol/L [facility] ([place]) CO2 26 22 - 32 mmol/L [facility] ([place]) Anion gap 11 2 - 15 mmol/L [facility] ([place]) BUN 6(L) 8 - 25 mg/dL [facility] ([place]) Creatinine 0.64 0.60 - 1.10 mg/dL [facility] ([place]) Glucose 126 70 - 199 mg/dL [facility] ([place]) [...] interpretive data was last revised 2017. Calcium 9.6 8.5 - 10.3 mg/dL [facility] ([place]) Bilirubin, total <0.2 0.1 - 1.2 mg/dL [facility] ([place]) Protein, pl 7.9 6.5 - 8.5 g/dL [facility] ([place]) Albumin 4.6 3.5 - 5.0 g/dL [facility] ([place]) Alk phos 124 40 - 130 Units/L [facility] ([place]) ALT 16 7 - 45 Units/L [facility] ([place]) AST 29 10 - 45 Units/L [facility] ([place]) Blood 07/06/2022 2:14 AM PARTY PLAN SALES CONSULTANT 07/06/2022 2:19 AM PARTY PLAN SALES CONSULTANT Kat Biggs MD LAB BLOOD ORDERABLES Cristy beebe Result [facility] ([place]) 1 [facility] [place] [address] * (ABNORMAL) CBC with auto differential (07/06/2022 2:14 AM PARTY PLAN SALES CONSULTANT) WBC 11.8(H) 3.8 - 9.9 K/cumm [facility] ([place]) Hgb 11.6(L) 11.9 - 15.5 g/dL [facility] ([place]) Hct 35.6 35.6 - 45.5 % [facility] ([place]) Plt 390 150 - 400 K/cumm [facility] ([place]) MPV 9.8 9.1 - 12.3 fL [facility] ([place]) RBC 4.16 3.90 - 5.20 M/cumm [facility] ([place]) MCV 85.6 81.3 - 96.4 fL [facility] ([place]) MCH 27.9 27.1 - 33.3 pg [facility] ([place]) MCHC 32.6 32.3 - 35.7 g/dL [facility] ([place]) RDW CV 14.4 11.1 - 14.9 % [facility] ([place]) RDW SD 45.1 35.7 - 48.1 fL [facility] ([place]) NRBC abs 0.00 0.00 - 0.01 K/cumm [facility] ([place]) Blood (Blood, Venous) 07/06/2022 2:14 AM PARTY PLAN SALES CONSULTANT 07/06/2022 2:19 AM PARTY PLAN SALES CONSULTANT Kat Biggs MD LAB BLOOD ORDERABLES Cristy l Result Performing Organization Address City/[facility]/ZIP Co de Phone Number [facility] ([place]) 1 [facility] [place] [address] * ECG 12 lead (07/06/2022 2:07 AM PARTY PLAN SALES CONSULTANT) 07/06/2022 2:07 AM PARTY PLAN SALES CONSULTANT Narrative [facility] - 07/07/2022 8:28 AM PARTY PLAN SALES CONSULTANT Vent Rate: 88 bpm RR Interval: 678 msec [place] Interval: 0 msec QRS Duration: 82 msec QT Interval: 380 msec QTC Interval: 426 msec P-R-T [place]: 0 - 61 - 44 degrees Probable sinus rhythm with PACs LOW QRS VOLTAGE IN PRECORDIAL LEADS ??[QRS DEFLECTION < 1.0 mV IN CHEST LEADS] MODERATE ST DEPRESSION ??[0.05+ mV ST DEPRESSION] ABNORMAL ECG No change from prior EKG Electronically Signed By: Arnaldo Yan MD Kat Biggs MD ECG ORDERABLES Final Res ult Performing Organization Address [facility] Co de Phone Number [facility] documented in this encounter Visit Diagnoses Diagnosis Palpitations- Primary Hiatal hernia Diaphragmatic hernia without mention of obstruction or gangrene Gastroesophageal reflux disease, unspecified whether esophagitis present documented in this encounter Administered Medications Inactive Administered Medications - up to 3 most recent administrations Medication Order MAR Action Action Date Dose Rate Site LORazepam (ATIVAN) tablet 0.5 mg 0.5 mg, oral, Once, On 07/06/22 at 0253, For 1 dose Given 07/06/2022 3:01 AM PARTY PLAN SALES CONSULTANT 0.5 mg ondansetron (ZOFRAN) injection 4 mg 4 mg, intravenous, Administer over 2 Minutes, Once, On 07/06/22 at 0244, For 1 dose Given 07/06/2022 2:45 AM PARTY PLAN SALES CONSULTANT 4 mg documented in this encounter Active and Recently Administered Medications Due to Daylight Saving Time, this section may contain times in both CDT and PARTY PLAN SALES CONSULTANT. Scheduled Medication Order 07/04/2022 07/05/2022 07/06/2022 LORazepam (ATIVAN) tablet 0.5 mg (COMPLETED) 0.5 mg, oral, Once, On 07/06/22 at 0253, For 1 dose 0301 (Given - Provid er: Destinee Foote RN) ondansetron (ZOFRAN) injection 4 mg (COMPLETED) 4 mg, intravenous, Administer over 2 Minutes, Once, On 07/06/22 at 0244, For 1 dose 0245 (Given - Provid er: Destinee Foote RN) documented in this encounter Additional Health Concerns Infection Onset Date Last Indicated Resolved Time COVID: Suspected 07/06/2022 07/06/2022 07/06/2022 3:52 AM PARTY PLAN SALES CONSULTANT documented as of this encounter Care Teams Information Security Architect Relationship Specialty Start Date End Date Parmjit Dai MD PCP - General 12/31/20 Mere Landa NP Nurse Practitioner 02/07/20 Tico Burton MD Surgeon General Surgery 08/09/21 documented as of this encounter
--- OUTSIDE RECORDS SUMMARY | 2024-08-16 04:34 | XMS_ITS | Encounter Summary ---
Author Organization [facility] Address [address] [place] [address] Care Team Providers Care Family Nurse Name Role Phone Mere Landa NP Unavailable [phone] Parmjit Dai MD Primary Care Provider [phone] Tico Burton MD Unavailable [phone] Encounter Details Date Type Department Care Team (Late st Contact Info) Description 08/22/2022 Orders Only [facility] Gastroenterology at [address] [place] [address] Richard Bowman NP [address] [place] [address] [address] [place] [address] Irritable bowel syndrome with both constipation and [...] on file Legal Sex Female 10:06 AM HUMAN RESOURCES MANAGER Gender Identity Female 06/17/2024 7:02 AM CDT Sexual Orientation Not on file documented as of this encounter Plan of Treatment Upcoming Encounters Date Type Department Care Team (Latest Contact Info) Description 09/07/2024 8:30 AM HUMAN RESOURCES MANAGER Hospital Encounter [facility] [address] [place] [phone] Forest Catherine MD [address] [address] 09/07/2024 8:30 AM HUMAN RESOURCES MANAGER - 09/07/2024 9:00 AM HUMAN RESOURCES MANAGER Surgery [facility] [address] [place] [phone] Forest Catherine MD [address] [address] EGD w/Endo Flip & YI placement Scheduled Procedures Name Priority Associated Diagnoses Date/Ti me ESOPHAGOGASTRODUODENOSCOPY Hiatal hernia Gastroesophageal reflux disease, unspecified whether esophagitis present 09/07/2024 8:30 AM HUMAN RESOURCES MANAGER documented as of this encounter Visit Diagnoses Diagnosis Irritable bowel syndrome with both constipation and diarrhea- Primary Hiatal hernia Diaphragmatic hernia without mention of obstruction or gangrene Gastroesophageal reflux disease, unspecified whether esophagitis present documented in this encounter Care Teams Family Nurse Relationship Specialty Start Date End Date Parmjit Dai MD PCP - General 12/31/20 Mere Landa NP Nurse Practitioner 02/07/20 Tico Burton MD Surgeon General Surgery 08/09/21 documented as of this encounter
--- OUTSIDE RECORDS SUMMARY | 2024-08-16 04:34 | XMS_ITS | Encounter Summary ---
Author Organization [facility] Address [address] [place] [address] Care Team Providers Care Institute Scientist Name Role Phone Mere Landa NP Unavailable [phone] Parmjit Dai MD Primary Care Provider [phone] Tico Burton MD Unavailable [phone] Encounter Details Date Type Department Care Team (Late st Contact Info) Description 09/04/2022 Telephone [facility] Gastroenterology at [address] [place] [address] Richard Bowman NP [address] [place] [address] [address] [place] [address] Social History Tobacco Use Types [...] on file Legal Sex Female 10:06 AM BULB ASSEMBLER Gender Identity Female 06/17/2024 7:02 AM CDT Sexual Orientation Not on file documented as of this encounter Ordered Prescriptions Prescription Sig Dispense Quantity Refills Last Filled Start Date End Date ondansetron ODT (ZOFRAN-ODT) 8 mg disintegrating tablet Take 1 tablet (8 mg total) by mouth every 6 (six) hours as needed for nausea or vomiting 20 tablet 3 09/04/2022 3 documented in this encounter Miscellaneous Notes * Telephone Encounter - Kalani Barth - 09/10/2022 8:56 AM CST Called patient and scheduled her colonoscopy with Dr. Sorto on 10/29/22. ASSEMBLER * Telephone Encounter - Richard Gracia NP - 09/04/2022 4:33 PM BULB ASSEMBLER 2 day please- to be on the safe side. ASSEMBLER * Telephone Encounter - Kalani Barth - 09/04/2022 4:17 PM CST Lvm for pt to call back and schedule. Richard, should pt do 1 or 2 day prep? Looks like she's had both diarrhea and constipation. ASSEMBLER * Telephone Encounter - Corina Petersen MA - 09/04/2022 2:16 PM CST Pt informed of the results please schedule see message and schedule procedure. ASSEMBLER * Telephone Encounter - Richard Gracia NP - 09/04/2022 1:52 PM BULB ASSEMBLER Please send her information to Kalani so she can set her up for a colonoscopy in 6-8 weeks so we can do biopsies to ensure nothing else is going on. As long as the antibiotics make her feel better, she can wait and follow-up with me in October as scheduled. Based on her allergy list, I can not give her Compazine, promethazine, or Reglan as they can all cause similar reactions. I will send the 8 mg dose of Zofran, to see if it helps better. ASSEMBLER * Telephone Encounter - Corina Petersen MA - 09/04/2022 11:31 AM CST Patient called and reports that she went to the ER this morning [facility] for Abdominal pain ER sent her home reporting that she has colitis and was sent home with two antibiotics. Pt on Flagyl and Cipro. Patient wants to know if there anything she can do for the nausea. Pt was given Zofran inthe ER. Patient was just in Thursday and was told to follow up with our office 2-3 days afterwards. Pt wants to know if follow up is needed since she was just seen. Please Advice? ASSEMBLER documented in this encounter Plan of Treatment Upcoming Encounters Date Type Department Care Team (Latest Contact Info) Description 09/07/2024 8:30 AM BULB ASSEMBLER Hospital Encounter [facility] [address] [place] [phone] Forest Catherine MD [address] [place] [address] 09/07/2024 8:30 AM BULB ASSEMBLER - 09/07/2024 9:00 AM BULB ASSEMBLER Surgery [facility] [address] [place] [phone] Forest Catherine MD [address] [place] [address] EGD w/Endo Flip & YI placement Scheduled Procedures Name Priority Associated Diagnoses Date/Ti me ESOPHAGOGASTRODUODENOSCOPY Hiatal hernia Gastroesophageal reflux disease, unspecified whether esophagitis present 09/07/2024 8:30 AM BULB ASSEMBLER documented as of this encounter Visit Diagnoses Not on filedocumented in this encounter Discontinued Medications Medication Sig Discontinue Reason Start Date End Da te ondansetron ODT (ZOFRAN-ODT) 4 mg disintegrating tablet Take 1 tablet (4 mg total) by mouth every 4 (four) hours as needed for nausea or vomiting 06/10/2022 09/04/2022 ondansetron (ZOFRAN) 4 mg tablet Take 1 tablet (4 mg total) by mouth every 4 (four) hours as needed for nausea or vomiting 09/04/2022 09/04/2022 documented as of this encounter Care Teams Institute Scientist Relationship Specialty Start Date End Date Parmjit Dai MD PCP - General 12/31/20 Mere Landa NP Nurse Practitioner 02/07/20 Tico Burton MD Surgeon General Surgery 08/09/21 documented as of this encounter
--- OUTSIDE RECORDS SUMMARY | 2024-08-16 04:34 | XMS_ITS | Encounter Summary ---
Author Organization [facility] Address [address] [place] [address] Care Team Providers Care Full Service Supervisor Name Role Phone Mere Landa NP Unavailable [phone] Parmjit Dai MD Primary Care Provider [phone] Tico Burton MD Unavailable [phone] Encounter Details Date Type Department Care Team (Late st Contact Info) Description 03/27/2022 Telephone [facility] Gastroenterology at [address] [place] [address] Katerine Lundy PA [address] [place] [address] [address] [place] [address] Social History Tobacco Use Types Packs/Day Years Used Date Smoking Tobacco: Former Cigarettes - 1999 Smokeless Tobacco: Never Comments:off and on Alcohol Use Standard Drinks/Week Comments No 0 (1 standard drink = 0.6 oz pur e alcohol) on occasion AUDIT-C Answer Date Recorded Q1: How often do you have a drink containing alc ohol? Never 12/18/2021 Average Number of Drinks Not on file 022 Q3: How often do you have si x or more drinks on one occasion? 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 * Telephone Encounter - Katerine Lundy PA - 03/27/2022 3:36 PM CDT I have reached out to the patient via [email or web address]. Please let me know if she calls back. Thanks! * Telephone Encounter - Corina Petersen MA - 03/27/2022 12:18 PM CDT Patient sees arabella for IBS has an apt scheduled with Arabella on 04/15/2022. Patient wants sooner apt having a flare up pt reports having really bad heart burn took Mylanta for symptoms having blood in stool and abdominal pain pain scale 5 has Upper abdominal pain above belly button. documented in this encounter Plan of Treatment Upcoming Encounters Date Type Department Care Team (Latest Contact Info) Description 09/07/2024 8:30 AM ACCOUNT FINANCIAL MANAGER Hospital Encounter GI Center [facility] [place] [phone] Forest Catherine MD [address] [place] [address] 09/07/2024 8:30 AM ACCOUNT FINANCIAL MANAGER - 09/07/2024 9:00 AM ACCOUNT FINANCIAL MANAGER Surgery GI Center [address] [place] [address] Forest Catherine MD [address] [place] [address] EGD w/Endo Flip & YI placement Scheduled Procedures Name Priority Associated Diagnoses Date/Ti me ESOPHAGOGASTRODUODENOSCOPY Hiatal hernia Gastroesophageal reflux disease, unspecified whether esophagitis present 09/07/2024 8:30 AM ACCOUNT FINANCIAL MANAGER documented as of this encounter Visit Diagnoses Not on filedocumented in this encounter Care Teams Full Service Supervisor Relationship Specialty Start Date End Date Parmjit Dai MD PCP - General 12/31/20 Mere Landa NP Nurse Practitioner 02/07/20 Tico Burton MD Surgeon General Surgery 08/09/21 documented as of this encounter
--- OUTSIDE RECORDS SUMMARY | 2024-08-16 04:34 | XMS_ITS | Encounter Summary ---
Author Organization [facility] Address [address] [facility] [address] [place] [address] Care Team Providers Care Transformation Lead Name Role Phone Mere Landa NP Unavailable [phone] Parmjit Dai MD Primary Care Provider [phone] Tico Burton MD Unavailable [phone] Reason for Visit * Reason Comments Follow-up Patient here for a f ollow up for abdominal pain and nausea. Patient reports symptoms are better but had two episodes of abdominal cramping that came on quickly. 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 Gender Identity Female 06/17/2024 7:02 AM CDT Sexual Orientation Not on file documented as of this encounter Last Filed Vital Signs Vital Sign Reading Time Taken Comments Blood Pressure 142/64 06/03/2022 1:25 PM CDT Pulse 74 06/03/2022 1:25 PM CDT Temperature - - Respiratory Rate - - Oxygen Saturation 98% 06/03/2022 1:25 PM CDT Inhaled Oxygen Concentration - - Weight 64.5 kg (142 lb 1.6 oz) 06/03/2022 1:25 P M CDT Height - - Body Mass Index 24.39 01/17/2022 2:20 PM CDT documented in this encounter Patient Instructions * Patient Instructions* Richard Gracia NP - 06/03/2022 1:30 PM CDT Consider taking Gas-X as needed when cramping is more severe; consider taking 2- 3 times daily. Add in Culturelle or Align probiotic and take daily for 2-3 months, then change to taking a 1 monthcourse of these probiotics every 2-3 months so that you are getting 4 months per year of a good probiotic. documented in this encounter Ordered Prescriptions Prescription Sig Dispense Quantity Refills Last Filled Start Date End Date lubiprostone (AMITIZA) 24 mcg capsule Take 1 capsule (24 mcg total) by mouth 2 (two) times a day with meals 60 capsule 5 06/03/2022 2 documented in this encounter Progress Notes * Richard Gracia NP - 06/03/2022 1:30 PM CDT Images from the original note were not included. PATIENT DEMOGRAPHICS Sarahy Gill is a 52 y.o. White female. PATIENT'S CARE TEAM Patient Care Team: Parmjit Dai MD as PCP - General Mere Landa NP (Nurse Practitioner) Tico Burton MD as Surgeon (General Surgery) CHIEF COMPLAINT Chief Complaint Patient presents with ??? Follow-up Patient here for a follow up for abdominal pain and nausea. Patient reports symptoms are better buthad two episodes of abdominal cramping that came on quickly. ??? Nausea ??? Abdominal Cramping HPI New or existing patient visit: Existing. Referring Provider: Parmjit Dai MD Nkechi is here today for routine GI follow up. Last office visit with me was in December. Weight is up 2lb since that time so honestly essentially stable. IBS symptoms are doing better. Has good days and bad days, but much more good days than she used to. IBS is constipation predominant, but has a component of diarrhea as well, especially when constipation has recently been more problematic. Only has cramping on occasion so takes Bentyl as needed, but uses sparingly, with positive benefit. She continues on two Colace stool softeners daily, Amitiza 24 mcg b.i.d., and MiraLax as needed, but has not recently had to take any MiraLax. Still sometimes has bloating and gas issues, but they are better than they have been in the past. On rare occasion will notice some scant bright red blood with wiping (likely from known internal hemorrhoids); denies r ectal pain. She has been working on identifying and avoiding or trigger foods. She did take a course of doxycycline after her last office visit to cover for potential SIBO, but she is honestly not sure how much it helped. She does take nortriptyline 25 mg at HS started earlier this year in it does seem to help with both her IBS and insomnia issues so she would like to continue it. Colonoscopy last completed in [address] Aiken: A few polyps were removed. Internal hemorrhoidswere noted. Not sure when she is supposed to repeat. No family history of colon cancer. Likely needs to be on a 5 year surveillance colonoscopy schedule. Celiac screening earlier this year was negative. She never did complete the stool testing to rule out EPI. Still occasionally has nausea, but no recent vomiting. Has Zofran to use as needed with positive benefit. Heartburn and reflux do well, only if she takes Protonix 40 mg every single day, and does notmiss a dose. No recent issues with significant abdominal pain. Has famotidine to use as needed for heartburn and reflux issues, but has not recently had to take it. EGD completed earlier this year showed mild chronic inactive gastritis and reflux esophagitis changes. No NSAID or aspirin use. Chronically anticoagulated on Eliquis. Former smoker. Vapes nicotine. Denies alcohol and drug use other than occasional marijuana use. Gallbladder previously surgically removed. MEDICAL HISTORY Patient's active problem list, medical history, surgical history, social history, and family history were reviewed and updated as needed. Patient Active Problem List Diagnosis Date Noted ??? Gastroesophageal reflux disease with esophagitis without [...] vomiting syndrome 08/09/2021 ??? Bipolar affect, depressed (CMS/HCC) (HCC) 08/09/2021 ??? Intussusception intestine (CMS/HCC) (HCC) 08/09/2021 ??? Hypertension 08/08/2021 ??? Abdominal pain, generalized 08/08/2021 ??? Atrial fibrillation (CMS/HCC) ([facility]) 05/15/2020 ??? Essential tremor 10/12/2018 ??? Jerky body movements 10/12/2018 ??? Irritable bowel syndrome with both constipation and diarrhea 02/23/2018 ??? Orthostatic dizziness 09/16/2016 ??? Palpitations 07/29/2016 ??? Migraine headache 07/29/2016 Past Medical History: Diagnosis Date ??? Anxiety ??? Arthritis ??? Bipolar affect, depressed (CMS/HCC) (HCC) ??? Cyclic vomiting syndrome ??? Depression ??? Headache, tension-type ??? Hypertension ??? Migraine ??? Stroke (CMS/HCC) ([facility]) ??? Weight loss Past Surgical History: Procedure Laterality Date ??? ABDOMINAL SURGERY 2012 hiatel hernia repair ??? ARTHROSCOPIC SURGERY Left 1984,1994,2001 knee ??? SECTION 1992 ??? CHOLECYSTECTOMY ??? ENDOMETRIAL ABLATION ??? HERNIA REPAIR ??? TUBAL LIGATION Family History Problem Relation Age of Onset ??? Esophageal cancer Maternal Grandmother ??? Heart disease Maternal Grandmother ??? Stroke Maternal Grandmother ??? Hypertension Maternal Grandmother ??? Migraines Mother Social History Tobacco Use ??? Smoking status: Former Types: Cigarettes Start date: 1983 Quit date: 2000 Years since quittin.7 ??? Smokeless tobacco: Never ??? Tobacco comments: off and on Substance and Sexual Activity ??? Drug use: Yes Types: Marijuana Comment: occasionally ??? Sexual activity: Defer control/protection: Post-menopausal Alcohol Use: Not At Risk ??? Frequency of Alcohol Consumption: Never ??? Average Number of Drinks: Patient does not drink ??? Frequency of Binge Drinking: Never MEDICATIONS Current Outpatient Medications: ??? apixaban (ELIQUIS) 5 mg tablet ??? atorvastatin (LIPITOR) 40 mg tablet ??? clonazePAM (KlonoPIN) 0.5 mg tablet ??? dicyclomine (BENTYL) 10 mg capsule ??? escitalopram (LEXAPRO) 10 mg tablet ??? famotidine (PEPCID) 20 mg tablet ??? flecainide (TAMBOCOR) 50 mg tablet ??? fluconazole (DIFLUCAN) 150 mg tablet ??? hydrOXYzine (ATARAX) 25 mg tablet ??? metoprolol XL (TOPROL-XL) 25 mg extended release tablet ??? nortriptyline (PAMELOR) 25 mg capsule ??? ondansetron (ZOFRAN) 4 mg tablet ??? pantoprazole DR (PROTONIX) 40 mg EC tablet ??? polyethylene glycol (MIRALAX) 17 gram/dose powder ??? senna-docusate (PERICOLACE) 8.6-50 mg ??? SUMAtriptan (IMITREX) 50 mg tablet ??? venlafaxine XR (EFFEXOR-XR) 37.5 mg 24 hr capsule ??? lubiprostone (AMITIZA) 24 mcg capsule Medications were reviewed and updated as needed. ALLERGIES Allergies Allergen Reactions ??? Compazine [Prochlorperazine] Other (See comments) made me feel weird, odd also agitation ??? Phenergan [Promethazine] Agitation ??? Reglan [Metoclopramide] Other (See comments) Had TIA after trying. ??? Zithromax [Azithromycin] Stomach upset Allergies were reviewed and updated as needed. REVIEW OF SYSTEMS Positive responses are italicized. Constitutional: Activity change, appetite change, chills, diaphoresis, fatigue, fever, significant weight change. HENT: Congestion, drooling, mouth sores, postnasal drip, rhinorrhea, sore throat, trouble swallowing, voice change. Respiratory: Cough, choking, chest tightness, shortness of breath, wheezing, stridor. Cardiovascular: Chest pain, palpitations, leg swelling. Gastrointestinal: See HPI for full review of this system. Genitourinary: Difficulty urinating, dysuria, frequency,urgency. Musculoskeletal: Arthralgias or myalgias. Skin: Pallor or rash. Neurological: Dizziness, light-headedness, headaches. Psychiatric/Behavioral: Decreased concentration, sleep issues, problematic depression, problematic anxiety. PHYSICAL EXAM BP 142/64 (BP Location: Right arm, Patient Position: Sitting) Pulse 74 Wt 64.5 kg (142 lb 1.6 oz) SpO2 98% BMI 24.39 kg/m?? No LMP recorded. Patient is postmenopausal. Positive responses are italicized. Constitutional: No acute distress/sickly appearance. HENT: Normocephalic/atraumatic; mucous membranes moist; oropharynx is clear; no posterior oropharyngeal erythema. Eyes: No scleral icterus. Neck: No thyroid mass/obvious thyromegaly. Trachea midline. No obvious lymphadenopathy. Cardiovascular: Normal rate and regular rhythm; no murmur heard; no leg edema. Pulmonary: Pulmonary effort and breath sounds normal. Abdominal: Bowel sounds active; abdomen is soft/non-distended. No abdominal tenderness; no rebound;no guarding. No obvious hernia identified. Skin: No jaundice or significant pallor. No rash. Neurological: Alert and oriented to person, place, time. Psychiatric: Mood/behavioral normal. TESTS/LABS/PROCEDURES 12/18/21- EGD with Dr. Sorto: Normal duodenum. [...] on a 5 year surveillance colonoscopy schedule. No visits with results within 3 Month(s) from this visit. Latest known visit with results is: Lab on 01/17/2022 Component Date Value ??? WBC 01/17/2022 9.6 ??? Hgb 01/17/2022 11.5 (A) ??? Hct 01/17/2022 36.1 ??? Plt 01/17/2022 353 ??? MPV 01/17/2022 10.9 ??? RBC 01/17/2022 4.12 ??? MCV 01/17/2022 87.6 ??? MCH 01/17/2022 27.9 ??? MCHC 01/17/2022 31.9 (A) ??? RDW CV 01/17/2022 17.0 (A) ??? RDW SD 01/17/2022 54.7 (A) ??? NRBC abs 01/17/2022 0.00 ??? IgA 01/17/2022 223 ??? Celiac disease interpret* 01/17/2022 See Comment ??? Neutrophil abs 01/17/2022 6.5 ??? Imm gran abs 01/17/2022 0.0 ??? Lymphocyte abs 01/17/2022 1.8 ??? Monocyte abs 01/17/2022 1.1 (A) ??? Eosinophil abs 01/17/2022 0.2 ??? Basophil abs 01/17/2022 0.1 ??? Neutrophil pct 01/17/2022 67.1 ??? Imm gran pct 01/17/2022 0.2 ??? Lymphocyte pct 01/17/2022 18.6 ??? Monocyte pct 01/17/2022 11.1 ??? Eosinophil pct 01/17/2022 2.4 ??? Basophil pct 01/17/2022 0.6 ? ? TTG ab, IgA 01/17/2022 <1.2 GI ASSESSMENT/PLAN (K58.2) Irritable bowel syndrome with both constipation and diarrhea (primary encounter diagnosis) Chronic condition that waxes and wanes in severity. Constipation predominant. Symptoms seem to be improving over time with better management of her underlying constipation. She will continue Amitiza without change. She can continue her two stool softeners daily and MiraLax as needed. Recommend she add in Culturelle or align probiotics as follows:take daily for 2-3 months, then change to taking a 1 month course of these probiotics every 2-3 months so that you are getting 4 months per year of a good probiotic. I also recommend she add in Gas-X as needed or consider taking scheduled 2-3 times daily. I think this would really helped a lot of her IBS related cramping. Can use Bentyl as needed, but will continue to use sparingly, since can contribute to constipation issues. At this point, we are not sure if she has a SIBO component, especially when symptoms are more severe, but she does not recall having a positive response to the ten day course of doxycycline prescribed at last office visit. New Medications Ordered This Visit Medications ??? lubiprostone (AMITIZA) 24 mcg capsule Sig: Take 1 capsule (24 mcg total) by mouth 2 (two) times a day with meals Dispense: 60 capsule Refill: 5 (R11.0) Chronic nausea Chronic, intermittent issue. Improving over time. Can continue Zofran as needed. Also going to haveher try Gas-X as needed, since nausea could potentially be related to trapped gas, when problematic. (K21.00) Gastroesophageal reflux disease with esophagitis without [...] Can continue to use famotidine b.i.d. p.r.n.. Advised to moderate her diet, continue to avoid NSAIDs, triggers, and alcohol. Risks/benefits/side effects of long-term PPI use were discussed with patient. Previous hiatal hernia repair appeared to be intact on EGD completed earlier this year. (Z98.890, Z86.010) History of colonoscopy with polypectomy Needs repeat colonoscopy at the five year point, in 2024. Return in about 6 months (around 12/02/2022) for IBS/nausea/GERD. Medication(s) and/or immunization(s) uses and side effects briefly discussed. Patient verbalizes understanding of all instructions provided today and agrees with plan. Total time spent on the date of the [id number] encounter, including both xisc-xk-fohe time (including staff/provider time spent providing education) and rsr-qmlx-ki-face time (pre-charting, reviewing chart, post-charting) was 32 minutes. This note is dictated and transcribed by [employer]. Manager Commercial Sales variances may occur. Despite proofreading, typographical errors may occur. My collaborating physician is Dr. Germania Sorto- Gastroenterology. Richard Gracia NP Cosigned by Germania Sorto MD at 06/07/2022 10:05 AM CDT documented in this encounter Plan of Treatment Upcoming Encounters Date Type Department Care Team (Latest Contact Info) Description 09/07/2024 8:30 AM [facility] Hospital Encounter [facility] [address] [place] [phone] Forest Catherine MD [address] [place] [address] 09/07/2024 8:30 AM [employer] - 09/07/2024 9:00 AM [facility] Surgery [facility] [address] [place] [phone] Forest Catherine MD [address] [place] [address] EGD w/Endo Flip & YI placement Scheduled Procedures Name Priority Associated Diagnoses Date/Ti me ESOPHAGOGASTRODUODENOSCOPY Hiatal hernia Gastroesophageal reflux disease, unspecified whether esophagitis present 09/07/2024 8:30 AM [employer]YS documented as of this encounter Visit Diagnoses [...] Discontinue Reason Start Date End Da te lubiprostone (AMITIZA) 24 mcg capsule Take 1 capsule (24 mcg total) by mouth 2 (two) times a day with meals Reorder 12/16/2021 06/03/2022 documented as of this encounter Care Teams Transformation Lead Relationship Specialty Start Date End Date Parmjit Dai MD PCP - General 12/31/20 Mere Landa NP Nurse Practitioner 02/07/20 Tico Burton MD Surgeon General Surgery 08/09/21 documented as of this encounter
--- OUTSIDE RECORDS SUMMARY | 2024-08-16 04:34 | XMS_ITS | Encounter Summary ---
Author Organization [facility] Healthcare Address [address] [place] [address] Care Team Providers Care Roving Department Supervisor Name Role Phone Mere Landa NP Unavailable [phone] Parmjit Dai MD Primary Care Provider [phone] Tico Burton MD Unavailable [phone] Reason for Visit * Reason Comments Shortness of Breath Encounter Details Date Type Department Care Team (Late st Contact Info) Description 06/09/2022 9:33 PM CDT - 06/10/2022 5:32 AM CDT Emergency [facility] Emergency Department [address] [place] [address] Beverley Paige MD [address] [facility] [place] [address] Matilde Knowles MD [address] [place] [address] [place] [address] Abdominal pain (Primary Dx); Irritable bowel syndrome, unspecified type; Cyclical vomiting Discharge Disposition: Discharge to home or self [...] on file Legal Sex 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 Gender Identity Female 06/17/2024 7:02 AM CDT Sexual Orientation Not on file documented as of this encounter Last Filed Vital Signs Vital Sign Reading Time Taken Comments Blood Pressure 117/81 06/10/2022 2:45 AM CDT Pulse 106 06/10/2022 5:30 AM CDT Temperature 36.8 ??C (98.2 ??F) 06/10/2022 2:45 AM CD T Respiratory Rate 13 06/10/2022 2:45 AM CDT Oxygen Saturation 99% 06/10/2022 5:30 AM CDT Inhaled Oxygen Concentration - - Weight 63.5 kg (140 lb) 06/09/2022 8:11 PM CDT Height - - Body Mass Index 24.03 01/17/2022 2:20 PM CDT documented in this encounter Discharge Instructions * Attachments The following attachments cannot be sent through Care Everywhere. * Abdominal Pain, Unknown Cause, (Female) (Polish) * Irritable Bowel Syndrome (AfterCare(R) Instructions(ER/ED)) (Polish) documented in this encounter Medications at Time of Discharge apixaban (ELIQUIS) 5 mg tablet Take 1 tablet (5 mg total) by mouth 2 (two) times a day atorvastatin (LIPITOR) 40 mg tabletIndications:h yperlipidemia Take 1 tablet (40 mg total) by mouth daily 30 tablet 1 1 metoprolol XL (TOPROL-XL) 25 mg extended [...] Start Date End Date ondansetron ODT (ZOFRAN-ODT) 4 mg disintegrating tablet Take 1 tablet (4 mg total) by mouth every 4 (four) hours as needed for nausea or vomiting 30 tablet 06/10/2022 3 documented in this encounter Discharge Disposition Disposition Code Departure Means Destination Discharge to home or self care documented in this encounter ED Notes * Beverley aPige MD - 06/10/2022 1:01 AM CDT HPI Chief Complaint Patient presents with Shortness of Breath The patient is a 52-year-old female with a past medical history of TIA, migraines, AFib on Eliquis,central tremor, GERD, irritable bowel syndrome , bipolar 1 disorder who comes emergency department today for nausea and vomiting as well as fevers and chills. Patient states her symptoms started today she denies a headache she denies cough she denies chest pain she denies shortness of breath. Patient denies diarrhea or constipation. She has no other complaints at this time. Issues did who symptoms started this evening. Patient History: Patient Active Problem List Diagnosis [...] Cyclic vomiting syndrome 08/09/2021 Bipolar affect, depressed ([facility]) ([facility]) 08/09/2021 Intussusception intestine ([facility]) ([facility]) 08/09/2021 Hypertension 08/08/2021 Abdominal pain, generalized 08/08/2021 Atrial fibrillation ([facility]) ([facility]) 05/15/2020 Essential tremor 10/12/2018 Jerky body movements 10/12/2018 Irritable bowel syndrome with both constipation and diarrhea 02/23/2018 Orthostatic dizziness 09/16/2016 Palpitations 07/29/2016 Migraine headache 07/29/2016 Past Medical History: Diagnosis Date Anxiety Arthritis Bipolar affect, depressed ([facility]) ([facility]) Cyclic vomiting syndrome Depression Headache, tension-type Hypertension Migraine Stroke ([facility]) ([facility]) Weight loss Past Surgical History: [...] not drink Frequency of Binge Drinking: Never Alcohol Use: Not At Risk Frequency of Alcohol Consumption: Never Average Number of Drinks: Patient does not drink Frequency of Binge Drinking: Never Social History Social History Narrative Not on file Review of Systems Review of Systems Constitutional: Positive for chills and fever. Negative for activity change, appetite change, diaphoresis and fatigue. HENT: Negative. Negative for congestion, drooling, rhinorrhea and sore throat. Eyes: Negative. Negative for photophobia, redness and visual disturbance. Respiratory: Negative. Negative for cough, chest tightness and shortness of breath. Cardiovascular: Negative. Negative for chest pain, palpitations and leg swelling. Gastrointestinal: Positive for abdominal pain, nausea and vomiting. Negative for anal bleeding, blood in stool, constipation and diarrhea. Endocrine: Negative. Genitourinary: Negative. Negative for decreased urine volume, difficulty urinating, dysuria, frequency, hematuria and urgency. Musculoskeletal: Negative. Negative for arthralgias and myalgias. Skin: Negative. Negative for rash and wound. Allergic/Immunologic: Negative for immunocompromised state. Neurological: Negative. Negative for dizziness, weakness and headaches. Hematological: Negative. Does not bruise/bleed easily. Psychiatric/Behavioral: Negative. Negative for confusion. All other systems reviewed and are negative. Physical Exam ED Triage Vitals Temp Pulse Resp BP SpO2 06/09/22201006/09/22201006/09/22201006/09/22201006/09/222010 36.3 ??C (97.4 ??F) 98 20 124/74 100 % Temp src Heart Rate Source Patient Position BP Location FiO2 (%) 06/09/22201006/09/22 2300 06/09/22 2300 06/09/22 2300 -- Temporal Monitor Lying Right arm Height Height Method Weight Weight Method -- -- 06/09/22201006/09/222010 63.5 kg (140 lb) Stated Physical Exam [...] There is no mass. Tenderness: There is abdominal tenderness (lower abdominal tenderness). There is no guarding or rebound. Hernia: No hernia is present. Musculoskeletal: General: Normal range of motion. Cervical back: Normal range of motion and neck supple. Skin: General: Skin is warm and dry. Coloration: Skin is not jaundiced or pale. Findings: No bruising. Neurological: General: No focal deficit present. Mental Status: She is alert and oriented to person, place, and time. Mental status is at baseline. Motor: No abnormal muscle tone. Psychiatric: Comments: Anxious appearing Pt care turned over to Dr. Knowles at shift change. MDM MDM Final diagnoses: Abdominal pain Irritable bowel syndrome, unspecified type Cyclical vomiting There may be grammatical errors in this note due to use of voice recognition software. Beverley Paige MD 06/14/22 0612 * Hood Guerrero RN - 06/09/2022 8:15 PM CDT Patient c/o SOB today Positive for nausea, vomiting, chills Negative for CP, abdominal pain, diarrhea, cough. PMHx of a-fib, TIA. Patient is diaphoretic in triage and states that she is too weak to move for FAST exam. is currently shouting at this RN.Security called documented in this encounter Miscellaneous Notes * ED Re-evaluation Note - Matilde Knowles MD - 06/10/2022 1:17 AM CDT ED Re-evaluation Patient care assumed from Dr. Paige. Case and findings, including treatment plan, evaluations, consults, and lab/imaging results were discussed. Please see previous physician's documentation for complete history and physical exam. At this time CT pending. 52-year-old female with history of constipation predominant irritable bowel syndrome, cyclic vomiting, chronic marijuana use reporting nausea vomiting abdominal pain and she would like to be admittedto the hospital for this. Patient has history of AFib paroxysmally, EKG shows a lot of baseline artifact, AFib with rate control 78, narrow QRS, normal ST segments and T-waves without STEMI or equivalent appreciated on this EKG limited by baseline artifact. ED Course as of 06/10/22 0549 Time: 06/10 203 Value: CT Abdomen Pelvis W Contrast Comment: IMPRESSION: 1. Moderate right-sided colonic stool burden. Otherwise, no acute findings in the abdomen or pelvis to explain the patient's abdominal pain. By: Matilde Knowles MD Time: 06/10 335 Value: Hgb(!): 11.1 Comment: Baseline By: Matilde Knowles MD Time: 06/10 335 Value: WBC(!): 14.8 Comment: Nonspecific and nondiagnostic By: Matilde Knowles MD Time: 06/10 451 Comment: Patient reports feeling antsy after droperidol. But is no longer dry heaving. By: Matilde Knowles MD Patient required additional treatment for nausea vomiting prior to discharge but is now tolerating p.o.. In fact she has never actually thrown up while in the emergency department she does clings onto a vomit basin in possibly heaves. But her lab work is all very reassuring. I gave her copy of it went over everything including or CT scan with her. She has been given return precautions and follow-up instructions which he verbalized understanding agreement. Impression: 1. Abdominal pain 2. Irritable bowel syndrome, unspecified type 3. 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 Surgery [facility] [address] [place] [phone] Forest Catherine MD [address] [address] EGD w/Endo Flip & YI placement Scheduled Procedures Name Priority Associated Diagnoses Date/Ti me ESOPHAGOGASTRODUODENOSCOPY Hiatal hernia Gastroesophageal reflux disease, unspecified whether esophagitis present 09/07/2024 8:30 AM [employer]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 documented as of this encounter Procedures Procedure Name Priority Date/Time Associated Diagnosis Comments CT ABDOMEN PELVIS W CONTRAST ED 06/10/2022 12:36 AM CDT URINALYSIS AND REFLEX TO MICROSCOPIC AND CULTURE STAT 06/09/2022 10:58 PM CDT DRUGS OF ABUSE SCREEN, URINE WITHOUT CONFIRMATION STAT 06/09/2022 10:58 PM CDT TROPONIN T HIGH-SENSITIVITY SERIES (BASELINE, 2HR, 4HR, 6HR) STAT 06/09/2022 10:35 PM CDT INFLUENZA A/B, RSV, AND COVID-19 PCR Routine 06/09/2022 10:35 PM CDT SEPSIS LACTATE WITH REFLEX STAT 06/09/2022 10:35 PM CDT EGFR STAT 06/09/2022 10:35 PM CDT DIFFERENTIAL AUTO STAT 06/09/2022 10: 35 PM CDT CBC WITH AUTO DIFFERENTIAL STAT 06/09/2022 10:35 PM CDT BLOOD CULTURE Routine 06/09/2022 10:35 PM CDT BLOOD CULTURE Routine 06/09/2022 10:35 PM CDT COMPREHENSIVE METABOLIC PANEL STAT 06/09/2022 10:35 PM CDT XR CHEST PA LATERAL 2 VIEWS ED 06/09/2022 8:41 PM CDT ECG 12-LEAD STAT 06/09/2022 8:19 PM CDT documented in this encounter Results * CT Abdomen Pelvis W Contrast (06/10/2022 12:36 AM CDT) Anatomical Region Laterality Modality Body N/A Computed Tomogra phy 06/10/2022 1:16 AM CDT Narrative 06/10/2022 1:23 AM CDT EXAM DESCRIPTION: ?? CT ABDOMEN PELVIS W CONTRAST REASON FOR STUDY: ?? Pain ?? C/o nausea, vomiting, shortness of breath, and chills onset today. ?? Hx of hernia repair, , tubal ligation, and cholecystectomy ? TECHNIQUE: CT scan of the abdomen and pelvis performed with intravenous and ?? without ??oral contrast using helical scanning technique with dynamic intravenous contrast injection. Reconstructed coronal and sagittal MPR images reviewed. All images stored on PACS. Automated exposure control was used as a dose optimization technique for this examination. CONTRAST TYPE/DOSE: ?? 100mL of IOVERSOL 350 MG IODINE/ML INTRAVENOUS SOLUTION ?? injected via ?? intravenous COMPARISON: ?? 12/18/2021 FINDINGS: LOWER CHEST: ?? No significant pulmonary [...] Normal. KIDNEYS/URINARY TRACT: ?? Kidneys enhance symmetrically. ??Redemonstrated is a simple cyst in the upper pole right kidney. ??Low-attenuation lesion in the midpole left kidney is too small to characterize by CT likely represents a simple cyst statistically speaking. ??No hydronephrosis. ?Urinary bladder is unremarkable. GI: Moderate right-sided colonic stool burden. ?? No dilated bowel loops. No obvious wall thickening. ??Normal appendix. ??No significant diverticular disease. PERITONEUM: ?? No ascites or free air. RETROPERITONEUM: ?? No mass or adenopathy. REPRODUCTIVE: ?? No significant abnormality. VASCULATURE: ?? No abdominal aortic aneurysm. ??The proximal superior mesenteric artery is patent. ??The main portal vein, superior mesenteric vein and splenic vein are patent. MUSCULOSKELETAL: ?? No significant abnormality. OTHER: ?? No other abnormality. IMPRESSION: ?? 1. ?? Moderate right-sided colonic stool burden. ??Otherwise, no acute findings in the abdomen or pelvis to explain the patient's abdominal pain. REFERENCE: Unless otherwise specified, no follow-up imaging [...] Findings Committee. J Am Kacey Radiol. 2017 Mar;14(8):9122-4663. THIS IS AN ELECTRONICALLY VERIFIED FINAL REPORT 06/10/2022 1:23 AM - Electronically signed by ??Parmjit Herrera M.D. BB: BÁRBARA D: ??06/10/2022 1:23 AM T: ??06/10/2022 1:23 AM Report ID: [id number] Reading Location: ??[id number] Procedure Note Parmjit Herrera MD PhD - 06/10/2022 EXAM DESCRIPTION: CT ABDOMEN PELVIS W CONTRAST REASON FOR STUDY: Pain C/o nausea, vomiting, shortness of breath, and chills onset today. Hx of hernia repair, , tubal ligation, and cholecystectomy TECHNIQUE: CT scan of the abdomen and pelvis performed with intravenousand without oral contrast using helical scanning technique with dynamic intravenous contrast injection. Reconstructed coronal and sagittal MPRimages reviewed. All images stored on PACS. Automated exposure control was used as a dose optimization technique forthis examination. CONTRAST TYPE/DOSE: 100mL of IOVERSOL 350 MG IODINE/ML INTRAVENOUSSOLUTION injected via intravenous COMPARISON: 12/18/2021 FINDINGS: LOWER CHEST: No significant pulmonary abnormalities. No effusion. LIVER: Normal size. No identified cystic or solid masses. GALLBLADDER: Surgically absent. BILE DUCTS: No intrahepatic or extrahepatic ductal dilatation. SPLEEN: Normal size. No focal lesions. PANCREAS: No identified cystic or solid masses. No significant calcifications. No adjacent inflammation or peripancreatic fluidcollections. Pancreatic duct not dilated. ADRENALS: Normal. KIDNEYS/URINARY TRACT: Kidneys enhance symmetrically. Redemonstrated bel simple cyst in the upper pole right kidney. Low-attenuation lesion in the midpole left kidney is too small to characterize by CT likely represents a simple cyst statistically speaking. No hydronephrosis. Urinary bladderis unremarkable. GI: Moderate right-sided colonic stool burden. No dilated bowel loops.No obvious wall thickening. Normal appendix. No significant diverticular disease. PERITONEUM: No ascites or free air. RETROPERITONEUM: No mass or adenopathy. REPRODUCTIVE: No significant abnormality. VASCULATURE: No abdominal aortic aneurysm. The proximal superiormesenteric artery is patent. The main portal vein, superior mesenteric vein andsplenic vein are patent. MUSCULOSKELETAL: No significant abnormality. OTHER: No other abnormality. IMPRESSION: 1. Moderate right-sided colonic stool burden. Otherwise, no acutefindings in the abdomen or pelvis to explain the patient's abdominal pain. REFERENCE: Unless otherwise specified, no follow-up imaging [...] Findings Committee. J Am Kacey Radiol. 2017 Mar;14(8):2383-8742. THIS IS AN ELECTRONICALLY VERIFIED FINAL REPORT 06/10/2022 1:23 AM - Electronically signed by Parmjit Herrera M.D. BB: BÁRBARA Report ID: [id number] Reading Location: [place] [address] Beverley Paige MD [facility] [place] PROCEDURES F inal Result * (ABNORMAL) Drugs of Abuse Screen, Urine without Confirmation (06/09/2022 10:58 PM CDT) Amphetamine, ur Not Detected CutOff 500ng/mL [facility] ([place]) Comment: Interpretive Data - Amphetamines: [...] Data was last reviewed 2018. Urine Creatinine 44 mg/dL [facility] ([place]) Comment: Interpretive Data Urine Creatinine: < 10 mg/dL is extremely dilute = or > 10 but < 20 mg/dL is dilute = or > 20 mg/dL is normal Current Interpretive Data was last revised on 2017. Urine 06/09/2022 10:5 8 PM CDT 06/09/2022 11:04 PM CDT Narrative [facility] ([place]) - 06/09/2022 11:26 PM CDT Drug of Abuse screening is performed by immunoassay for medical purposes only. ??This is not to be used for Pain Management purposes. Beverley Paige MD LAB URINE ORDERABLE S Final Result [facility] 1 [facility] Department [place] [address] * Urinalysis reflex to microscopic and culture Urine (06/09/2022 10:58 PM CDT) Color, ur Straw Yellow [facility] ([place]) Clarity, ur Clear Clear [facility] ([place]) Specific gravity, ur 1.005 1.003 - 1.030 [facility] ([place]) pH, urine 7.5 [facility] ([place]) Protein, ur ql Negative [...] culture not met. [facility] ([place]) Urine 06/09/2022 10:5 8 PM CDT 06/09/2022 11:04 PM CDT Narrative [facility] ([place]) - 06/09/2022 11:08 PM CDT ?? Urine pH is affected by diet, medications, systemic acid-base disturbances, and renal tubular function. ??pH may affect urinary stone formation. ??For example, urine pH below 6.0 may help reduce the tendency for calcium phosphate stones and pH greater than 6.0 may reduce the tendency for uric acid stone formation. Source: [place]. Last revised 09-10-2017 us Beverley Paige MD LAB MICROBIOLOGY - GENERAL ORDERABLES Final Result [facility] ([place]) 1 [facility] Department [place] [address] * eGFR (06/09/2022 10:35 PM CDT) eGFR 99 mL/min/1. 73 m2 [facility] ([place]) Comment: Interpretive Data Reference Interval Normal ?>/= [...] interpretive data was last reviewed 2021. Blood 06/09/2022 10:3 5 PM CDT 06/09/2022 10:45 PM CDT us Beverley Paige MD LAB BLOOD ORDERABLE S Final Result [facility] ([place]) 1 [facility] Department [place] [address] * (ABNORMAL) Differential, auto (06/09/2022 10:35 PM CDT) Neutrophil abs 11.2(H) 1.7 - 6.5 K/cumm [facility] ([place]) Imm gran abs 0.1 0.0 - 0.1 K/cumm [facility] ([place]) Lymphocyte abs 1.8 0.8 - 3.3 K/cumm [facility] ([place]) Monocyte abs 1.6(H) 0.2 - 0.8 K/cumm [facility] ([place]) Eosinophil abs 0.1 0.0 - 0.5 K/cumm [facility] ([place]) Basophil abs 0.1 0.0 - 0.1 K/cumm [facility] ([place]) Neutrophil pct 75.8 % [facility] ([place]) Comment: Interpretive Data Percent cell count reference ranges are not reported, since discordance with absolute values may lead to misinterpretation of CBC data. Current Interpretive Data was last revised on 2017. Imm gran pct 0.5 % [facility] ([place]) Comment: Interpretive Data Percent cell count reference ranges are not reported, since discordance with absolute values may lead to misinterpretation of CBC data. Current Interpretive Data was last revised on 2017. Lymphocyte pct 12.1 % [facility] ([place]) Comment: Interpretive Data Percent cell count reference ranges are not reported, since discordance with absolute values may lead to misinterpretation of CBC data. Current Interpretive Data was last revised on 2017. Monocyte pct 10.8 % [facility] ([place]) Comment: Interpretive Data Percent cell count reference ranges are not reported, since discordance with absolute values may lead to misinterpretation of CBC data. Current Interpretive Data was last revised on 2017. Eosinophil pct 0.4 % [facility] ([place]) Comment: Interpretive [...] Data was last revised on 2017. Blood 06/09/2022 10:3 5 PM CDT 06/09/2022 10:45 PM CDT Beverley Paige MD LAB BLOOD ORDERABLE S Final Result Performing Organization Address City/[facility]/ZIP Co de Phone Number [facility] ([place]) 1 [facility] [place] [address] * Troponin T high-sensitivity series (baseline, 2hr, 4hr, 6hr) (06/09/2022 10:35 PM CDT) Trop T hs <6 <=14 ng/L [facility] ([place]) Comment: Interpretive Data For further hscTnT resources including the diagnostic algorithm and an aid in interpretation, copy and paste this link: https://nrl.testcatalog.org/show/hsTrop Current Interpretive Data last revised 2020. Blood 06/09/2022 10:3 5 PM CDT 06/09/2022 10:45 PM CDT Beverley Paige MD LAB BLOOD ORDERABLE S Final Result Performing Organization Address City/[facility]/ZIP Co de Phone Number [facility] ([place]) 1 [facility] [place] [employer] [place] [address] * Blood culture Blood (06/09/2022 10:35 PM CDT) Report Final Report: No growth [facility] ([place]) Comment:Testing performed by : [facility], [address] [facility]., [address] Blood 06/09/2022 10:3 5 PM CDT 06/10/2022 5:52 AM CDT Narrative [facility] ([place]) - 06/14/2022 7:01 AM CDT From a different site than #1. 1. ?Blood cultures are incubated for 4 days on a continuously monitored blood culture system. The first report of a negative culture is issued within 24 hours of receipt of the specimen in the laboratory. 2. ?Positive culture results are reported as soon as they are detected. 3. ?The most important factor for detection of microbes in the setting of bloodstream infection is the volume of blood submitted for culture. Failure to collect an optimal blood volume can result in false negative blood cultures. For pediatric patients, the recommended blood volume to collect is 1 mL of blood per year of patient age (up to 20 mL) per blood culture set. For adult patients, 20 mL of blood, divided equally between aerobic and anaerobic blood culture bottles, is recommended for each blood culture set. 4. ?For blood cultures with Gram-positive cocci, a rapid molecular test for organism identification may be performed using the Postabonigene Gram-Positive Blood Culture Assay. This assay detects microbial DNA in positive blood culture broth via hybridization of target DNA to capture oligonucleotides on a microarray. This assay has been cleared by the [place] Food and Drug Administration and its performance characteristics have been verified by the [facility]. 5. ?For questions about this culture, contact the Microbiology Laboratory at [phone]. Interpretive data was last revised on 2020. Beverley Paige MD LAB MICROBIOLOGY - GENERAL ORDERABLES Final Result [facility] ([place]) 1 [facility] Department [place] [address] * Blood culture Blood (06/09/2022 10:35 PM CDT) Report Final Report: No growth [facility] ([place]) Comment:Testing performed by : [facility], [address] [facility]., [address] Blood 06/09/2022 10:3 5 PM CDT 06/10/2022 5:52 AM CDT Narrative [facility]LAINA [facility]ON[facility] ([place]) - 06/14/2022 7:01 AM CDT 1. ?Blood cultures are incubated for 4 days on a continuously monitored blood culture system. The first report of a negative culture is issued within 24 hours of receipt of the specimen in the laboratory. 2. ?Positive culture results are reported as soon as they are detected. 3. ?The most important factor for detection of microbes in the setting of bloodstream infection is the volume of blood submitted for culture. Failure to collect an optimal blood volume can result in false negative blood cultures. For pediatric patients, the recommended blood volume to collect is 1 mL of blood per year of patient age (up to 20 mL) per blood culture set. For adult patients, 20 mL of blood, divided equally between aerobic and anaerobic blood culture bottles, is recommended for each blood culture set. 4. ?For blood cultures with Gram-positive cocci, a rapid molecular test for organism identification may be performed using the Postabonigene Gram-Positive Blood Culture Assay. This assay detects microbial DNA in positive blood culture broth via hybridization of target DNA to capture oligonucleotides on a microarray. This assay has been cleared by the [place] Food and Drug Administration and its performance characteristics have been verified by the [facility]. 5. ?For questions about this culture, contact the Microbiology Laboratory at [phone]. Interpretive data was last revised on 2020. Beverley Paige MD LAB MICROBIOLOGY - GENERAL ORDERABLES Final Result [facility]ON[facility] ([place]) 1 [facility] Department [place] [address] * Sepsis Lactate w/ Reflex (06/09/2022 10:35 PM CDT) Sepsis Lactate 1.4 0.7 - 2.0 mmol/L [facility] ([place]) Blood 06/09/2022 10:3 5 PM CDT 06/09/2022 10:45 PM CDT Beverley Paige MD LAB BLOOD ORDERABLE S Final Result Performing Organization Address City/[facility]/ZIP Co de Phone Number BREN GONZALEZ ([place]) 1 [facility] Department [place] [address] * Influenza A/B, RSV, and COVID-19 PCR Nasopharyngeal (06/09/2022 10:35 PM CDT) COVID-19 RNA Negative Negative [facility] ([place]) Influenza A RNA Negative Negative [facility] ([place]) Influenza B RNA Negative Negative [facility] ([place]) RSV RNA Negative Negative [facility] ([place]) Comment: Interpretive data: This test is performed using the BlueSw[employer] Xpert Xpress CoV-2/Flu/RSV plus assay. This is [...] infection. Interpretive Data last revised 2021. Nasopharyngeal 06/09/2022 10 :35 PM CDT 06/09/2022 10:45 PM CDT Narrative [facility]ON[facility] ([place]) - 06/09/2022 11:27 PM CDT Is the Patient experiencing symptoms consistent with COVID?->Yes Date of Symptom Onset->06/07/22 Reason for testing?->Symptomatic Bevreley Paige MD LAB MICROBIOLOGY - GENERAL ORDERABLES Final Result [facility] ([place]) 1 [facility] Department [place] [address] * Comprehensive metabolic panel (06/09/2022 10:35 PM CDT) Sodium 140 135 - 145 mmol/L [facility] ([place]) Potassium, pl 3.5 3.3 - 4.9 mmol/L [facility] ([place]) Chloride 103 97 - 110 mmol/L [facility] ([place]) CO2 27 22 - 32 mmol/L [facility] ([place]) Anion gap 10 2 - 15 mmol/L [facility] ([place]) BUN 9 8 - 25 mg/dL [facility] ([place]) Creatinine 0.72 0.60 - 1.10 mg/dL [facility] ([place]) Glucose 146 70 - 199 mg/dL [facility] ([place]) [...] 10.3 mg/dL [facility] ([place]) Bilirubin, total 0.2 0.1 - 1.2 mg/dL [facility] ([place]) Protein, pl 7.4 6.5 - 8.5 g/dL [facility] ([place]) Albumin 4.5 3.5 - 5.0 g/dL [facility] ([place]) Alk phos 116 40 - 130 Units/L [facility] ([place]) ALT 12 7 - 45 Units/L [facility] ([place]) AST 23 10 - 45 Units/L [facility] ([place]) Blood 06/09/2022 10:3 5 PM CDT 06/09/2022 10:45 PM CDT us Beverley Paige MD LAB BLOOD ORDERABLE S Final Result [facility] ([place]) 1 [facility] [place] [address] * (ABNORMAL) CBC with auto differential (06/09/2022 10:35 PM CDT) WBC 14.8(H) 3.8 - 9.9 K/cumm [facility] ([place]) Hgb 11.1(L) 11.9 - 15.5 g/dL [facility] ([place]) Hct 34.4(L) 35.6 - 45.5 % [facility] ([place]) Plt 349 150 - 400 K/cumm [facility] ([place]) MPV 10.2 9.1 - 12.3 fL [facility] ([place]) RBC 3.93 3.90 - 5.20 M/cumm [facility] ([place]) MCV 87.5 81.3 - 96.4 fL [facility] ([place]) MCH 28.2 27.1 - 33.3 pg [facility] ([place]) MCHC 32.3 32.3 - 35.7 g/dL [facility] ([place]) RDW CV 13.8 11.1 - 14.9 % [facility] ([place]) RDW SD 44.2 35.7 - 48.1 fL [facility] ([place]) NRBC abs 0.00 0.00 - 0.01 K/cumm [facility] ([place]) Blood 06/09/2022 10:3 5 PM CDT 06/09/2022 10:45 PM CDT us Beverley Paige MD LAB BLOOD ORDERABLE S Final Result [facility] GONZALE[facility] ([place]) 1 [facility] [place] [employer] [place] [address] * XR Chest 2 views (06/09/2022 8:41 PM CDT) Anatomical Region Laterality Modality Body, Chest N/A Computed Radiogr aphy 06/09/2022 9:13 PM CDT Narrative 06/09/2022 9:13 PM CDT EXAM DESCRIPTION: ?? XR CHEST PA LATERAL 2 VIEWS REASON FOR STUDY: ?? new onset sob ?? c/o SOB today ? Positive for nausea, vomiting, chills ??Negative for CP, abdominal pain, diarrhea, cough. PMHx of a-fib, TIA. Patient is diaphoretic in triage and states that she is too weak to move for FAST exam. is currently shouting at this RN. Security called ?Former smoker ?? TECHNIQUE: ?? Frontal ??and lateral radiographic views of the chest acquired. COMPARISON: 08/14/2021 FINDINGS: LUNGS/PLEURA: ?? No focal consolidation or pneumothorax. No pleural effusion. HEART/MEDIASTINUM: ?? Heart size is normal. Normal mediastinal and hilar contours. HARDWARE/LINES/TUBES: ?? None. BONES: ?? No acute findings. OTHER: ?? No other significant finding. IMPRESSION: ??No acute cardiopulmonary abnormality. THIS IS AN ELECTRONICALLY VERIFIED FINAL REPORT 06/09/2022 9:13 PM - Electronically signed by ??David Hernandez M.D. RW: [email or web address] D: ??06/09/2022 9:13 PM T: ??06/09/2022 9:13 PM Report ID: [id number] Reading Location: ??[id number] Procedure Note David Hernandez MD - 06/09/2022 EXAM DESCRIPTION: XR CHEST PA LATERAL 2 VIEWS REASON FOR STUDY: new onset sob c/o SOB today Positive for nausea, vomiting, chills Negative for CP, abdominal pain, diarrhea, cough. PMHx of a-fib, TIA. Patient isdiaphoretic in triage and states that she is too weak to move for FAST exam. is currently shouting at this RN. Security called Former smoker TECHNIQUE: Frontal and lateral radiographic views of the chestacquired. COMPARISON: 08/14/2021 FINDINGS: LUNGS/PLEURA: No focal consolidation or pneumothorax. No pleuraleffusion. HEART/MEDIASTINUM: Heart size is normal. Normal mediastinal and hilar contours. HARDWARE/LINES/TUBES: None. BONES: No acute findings. OTHER: No other significant finding. IMPRESSION: No acute cardiopulmonary abnormality. THIS IS AN ELECTRONICALLY VERIFIED FINAL REPORT 06/09/2022 9:13 PM - Electronically signed by David Hernandez M.D. RW: [email or web address] Report ID: [id number] Reading Location: [place] [address] Beverley Paige MD IMG XR PROCEDURES F inal Result * ECG 12 lead (06/09/2022 8:19 PM CDT) 06/09/2022 8:19 PM CDT Narrative [facility] - 06/10/2022 12:44 PM CDT Vent Rate: 78 bpm RR Interval: 762 msec NE Interval: 0 msec QRS Duration: 71 msec QT Interval: 401 msec QTC Interval: 435 msec P-R-T [place]: 0 - 37 - 4 degrees Baseline artifact, probable sinus rhythm with PACs ST DEVIATION AND MODERATE T-WAVE ABNORMALITY, CONSIDER INFERIOR ISCHEMIA ??[- 0.1+ mV T WAVE IN II/aVF] ABNORMAL ECG Recommend repeat EKG with stable baseline for accurate comparison Electronically Signed By: Arnaldo Yan MD Beverley Paige MD ECG ORDERABLES Fin al Result [facility] documented in this encounter Visit Diagnoses Diagnosis Abdominal pain- Primary Abdominal pain, unspecified site Irritable bowel syndrome, unspecified type Cyclical vomiting Persistent vomiting Hiatal hernia Diaphragmatic hernia without mention of obstruction or gangrene Gastroesophageal reflux disease, unspecified whether esophagitis present documented in this encounter Administered Medications Inactive Administered Medications - up to 3 most recent administrations Medication Order MAR Action Action Date Dose Rate Site dicyclomine (BENTYL) capsule 20 mg 20 mg, oral, Once, On Thu06/10/22 at 0336, For 1 dose Given 06/10/2022 4:21 AM CDT 20 mg diphenhydrAMINE (BENADRYL) injection 25 mg 25 mg, intravenous, Administer over 2 Minutes, Once, On Thu06/10/22 at 0452, For 1 dose Given 06/10/2022 5:19 AM CDT 25 mg droperidoL (INAPSINE) injection 1.25 mg 1.25 mg, intravenous, Administer over 5 Minutes, Once, On Thu06/10/22 at 0334, For 1 dose Given 06/10/2022 4:20 AM CDT 1.25 mg famotidine (PEPCID) injection 40 mg 40 mg, intravenous, Administer over 2 Minutes, Once, On Thu06/10/22 at 0337, For 1 dose Given 06/10/2022 4:20 AM CDT 40 mg ioversoL (OPTIRAY 350) injection 100 mL 100 mL, intravenous, Once in imaging, contrast, Starting on Thu06/10/22 at 0025, For 1 dose Contrast Given 06/10/2022 12:33 AM CDT 100 mL ondansetron (ZOFRAN) injection 4 mg 4 mg, intravenous, Administer over 2 Minutes, Once, On Thu06/09/22 at 2206, For 1 dose Given 06/09/2022 10:35 PM CDT 4 mg ondansetron (ZOFRAN) injection 4 mg 4 mg, intravenous, Administer over 2 Minutes, Once, On Thu06/10/22 at 0245, For 1 dose Given 06/10/2022 2:54 AM CDT 4 mg documented in this encounter Active and Recently Administered Medications Times are shown in CDT. Scheduled Medication Order 06/08/2022 06/09/2022 06/10/2022 aluminum-magnesium hydroxide-simethicone (MAALOX) 40-40-4 mg/mL oral suspension 10 mL 10 mL, oral, Once, On Thu06/10/22 at 0336, For 1 dose 0336 (Due) dicyclomine (BENTYL) capsule 20 mg (COMPLETED) 20 mg, oral, Once, On Thu06/10/22 at 0336, For 1 dose 0421 (Given - Provid er: Clarisse Valles, KIET) diphenhydrAMINE (BENADRYL) injection 25 mg (COMPLETED) 25 mg, intravenous, Administer over 2 Minutes, Once, On Thu06/10/22 at 0452, For 1 dose 0519 (Given - Provid er: Clarisse Valles RN) droperidoL (INAPSINE) injection 1.25 mg (COMPLETED) 1.25 mg, intravenous, Administer over 5 Minutes, Once, On Thu06/10/22 at 0334, For 1 dose 0420 (Given - Provid er: Clarisse Valles, RN) famotidine (PEPCID) injection 40 mg (COMPLETED) 40 mg, intravenous, Administer over 2 Minutes, Once, On Thu06/10/22 at 0337, For 1 dose 0420 (Given - Provid er: Clarisse Valles, KIET) ondansetron (ZOFRAN) injection 4 mg (COMPLETED) 4 mg, intravenous, Administer over 2 Minutes, Once, On Thu06/09/22 at 2206, For 1 dose 2235 (Given - Provider: Clarisse Valles RN) ondansetron (ZOFRAN) injection 4 mg (COMPLETED) 4 mg, intravenous, Administer over 2 Minutes, Once, On Thu06/10/22 at 0245, For 1 dose 0254 (Given - Provid er: Clarisse Valles RN) PRN Medication Order 06/08/2022 06/09/2022 06/10/2022 ioversoL (OPTIRAY 350) injection 100 mL (COMPLETED) 100 mL, intravenous, Once in imaging, contrast, Starting on Thu06/10/22 at 0025, For 1 dose 0033 (Contrast Given - Provider: Shanel De Leon RT) documented in this encounter Orders Medications Ordered That Rg ht Not Have Been Administered Count Last Ordered Date First Ordered Date aluminum-magnesium hydroxide -simethicone (MAALOX) 40-40-4 mg/mL oral suspension 10 mL 1 06/10/2022 Nursing Count Last Ordered Date First Orde red Date NURSING COMMUNICATION 1 06/10/2022 documented in this encounter Additional Health Concerns Infection Onset Date Last Indicated Resolved Time COVID: Suspected 06/09/2022 06/09/2022 06/09/2022 11:28 PM CDT documented as of this encounter Care Teams Roving Department Supervisor Relationship Specialty Start Date End Date Parmjit Dai MD PCP - General 12/31/20 Mere Landa NP Nurse Practitioner 02/07/20 Tico Burton MD Surgeon General Surgery 08/09/21 documented as of this encounter
--- OUTSIDE RECORDS SUMMARY | 2024-08-16 04:34 | XMS_ITS | Encounter Summary ---
Author Organization [facility] Address [address] [place] [address] Care Team Providers Care Clerical Administrator Name Role Phone Mere Landa NP Unavailable [phone] Parmjit Dai MD Primary Care Provider [phone] Tico Burton MD Unavailable [phone] Reason for Referral * Diagnostic Imaging (Routine) - Closed Specialty Diagnoses / Procedures Referred By Contac t Referred To Contact Diagnoses Screening mammogram, encounter for Procedures Screening Mammogram Bilateral W Bong Screening Mammogram, Self [address] [address] Referral ID Status Reason Start Date Expiration Date Visits Re quested Visits Authorized [id number] Closed 04/23/2022 05/23/2023 1 1 * Diagnostic Imaging (Routine) - Closed Specialty Diagnoses / Procedures Referred By Contac t Referred To Contact Diagnoses Screening mammogram, encounter for Procedures Screening Mammogram Bilateral W Bong Screening Mammogram, Self [address] [address] Referral ID Status Reason Start Date Expiration Date Visits Re quested Visits Authorized [id number] Closed 04/23/2022 05/23/2023 1 1 Reason for Visit * Diagnostic Imaging (Routine) - Closed Specialty Diagnoses / Procedures Referred By Contac t Referred To Contact Diagnoses Screening mammogram, encounter for Procedures Screening Mammogram Bilateral W Bong Screening Mammogram, Self [facility] [address] [place] [address] Referral ID Status Reason Start Date Expiration Date Visits Re quested Visits Authorized [id number] Closed 04/23/2022 05/23/2023 1 1 Encounter Details Date Type Department Care Team (Latest Contact Info) Description 05/20/2022 2:56 PM CDT - 05/20/2022 11:59 PM CDT Hospital Encounter [facility] [address] [place] [address] Screening Mammogram, Self Screening mammogram, encounter for Discharge Disposition: Discharge [...] on file Legal Sex Female 10:06 AM [employer] Gender Identity Female 06/17/2024 7:02 AM CDT Sexual Orientation Not on file documented as of this encounter Medications at Time of Discharge apixaban (ELIQUIS) 5 mg tablet Take 1 tablet (5 mg total) by mouth 2 (two) times a day atorvastatin (LIPITOR) 40 mg tabletIndication s:hyperlipidemia Take 1 tablet (40 mg total) by mouth daily 30 tablet 1 08/13/2021 metoprolol XL (TOPROL-XL) 25 mg extended release tablet Take 1 tablet (25 mg total) by mouth daily clonazePAM (KlonoPIN) 0.5 mg tablet Take 0.5 mg by mouth every morning 09/12/2021 3 dicyclomine (BENTYL) 10 mg capsule Take 2 capsules (20 mg total) by mouth 4 (four) times a day as needed (abdominal pain/cramping) 240 capsule 5 09/24/2021 3 escitalopram (LEXAPRO) 10 mg tabletIndication s:Anxiety with Depression Take 10 mg by mouth daily 3 famotidine (PEPCID) 20 mg tablet Take 1 tablet (20 mg total) by mouth daily as needed for indigestion or heartburn 90 tablet 3 01/15/2022 3 flecainide (TAMBOCOR) 50 mg tablet Take 50 mg by mouth 2 (two) times a day 3 fluconazole (DIFLUCAN) 150 mg tablet Take 1 pill at onset of yeast infection symptoms. May repeat dose in 72 hours if no resolution of symptoms. 2 tablet 01/30/2022 3 hydrOXYzine (ATARAX) 25 mg tablet Take 25 mg by mouth 3 (three) times a day as needed 08/14/2021 3 lubiprostone (AMITIZA) 24 mcg capsule Take 1 capsule (24 mcg total) by mouth 2 (two) times a day with meals 60 capsule 5 12/16/2021 2 nortriptyline (PAMELOR) 25 mg capsule Take 1 capsule (25 mg total) by mouth nightly 30 capsule 11 12/20/2021 3 ondansetron (ZOFRAN) 4 mg tablet Take 1 tablet (4 mg total) by mouth every 6 (six) hours 30 tablet 5 09/24/[address] (PROTONIX) 40 mg EC tablet Take 1 tablet (40 mg total) by mouth daily 90 tablet 3 09/24/2021 3 polyethylene glycol (MIRALAX) 17 gram/dose powder Take 1-2 capfuls nightly for constipation management. 595 g 3 09/24/2021 3 senna-docusate (PERICOLACE) 8.6-50 mg Take 2 pills nightly for constipation management 180 tablet 3 09/24/2021 3 SUMAtriptan (IMITREX) 50 mg tabletIndication s:Migraine Take 1 tablet (50 mg total) by mouth once as needed for migraine May repeat dose once in 2 hours if no relief. Do not exceed 2 doses in 24 hours. 4 venlafaxine XR (EFFEXOR-XR) 37.5 mg 24 hr capsule Take 37.5 mg by mouth daily 12/12/2021 3 documented as of this encounter Discharge Disposition Disposition Code Departure Means Destination Discharge to home or self care documented in this encounter Plan of Treatment Upcoming Encounters Date Type Department Care Team (Latest Contact Info) Description 09/07/2024 8:30 AM [employer] MECH[employer]IC Hospital Encounter [facility] [address] [place] [phone] Forest Catherine MD [address] [address] 09/07/2024 8:30 AM [employer] MECH[employer]IC - 09/07/2024 9:00 AM [employer] MECH[employer]IC Surgery [facility] [address] [place] [phone] Forest Catherine MD [address] [address] EGD w/Endo Flip & YI placement Scheduled Procedures Name Priority Associated Diagnoses Date/Ti me ESOPHAGOGASTRODUODENOSCOPY Hiatal hernia Gastroesophageal reflux disease, unspecified whether esophagitis present 09/07/2024 8:30 AM [employer] documented as of this encounter Procedures Procedure Name Priority Date/Time Associated Diagnosis Comments SCREENING MAMMOGRAM BILATERAL W BONG Schedule Routine, Read Routine (OP Routine) 05/20/2022 3:11 PM CDT Screening mammogram, encounter for documented in this encounter Results * Screening Mammogram Bilateral W Bong (05/20/2022 3:11 PM CDT) Anatomical Region Laterality Modality Breast Bilateral Mammography 05/30/2022 12:1 4 PM CDT Impressions 05/30/2022 12:14 PM CDT There is no mammographic evidence of malignancy. A 1 year screening mammogram is recommended. BI-RADS: 1 - Negative. The patient has been or will be contacted. The patient will be entered into a reminder system with a target due date of 1 year for her next mammogram. Electronically signed by: Cedric Barnhart M.D. Narrative 05/30/2022 12:14 PM CDT EXAMINATION: SCREENING MAMMOGRAM BILATERAL W BONG ORDERING HEALTHCARE PROVIDER: SELF SCREENING MAMMOGRAM HISTORY: Routine screening mammography. COMPARISON: ??10/05/2018, 08/22/2015 TECHNIQUE: CC and MLO views of [...] present documented in this encounter Care Teams Clerical Administrator Relationship Specialty Start Date End Date Parmjit Dai MD PCP - General 12/31/20 Mere Landa NP Nurse Practitioner 02/07/20 Tico Burton MD Surgeon General Surgery 08/09/21 documented as of this encounter
--- OUTSIDE RECORDS SUMMARY | 2024-08-16 04:34 | XMS_ITS | Encounter Summary ---
Author Organization [facility] Address [address] [place] [address] Care Team Providers Care Beader Name Role Phone Mere Landa NP Unavailable [phone] Parmjit Dai MD Primary Care Provider [phone] Tico Burton MD Unavailable [phone] Reason for Visit * Reason Comments Follow-up Pt here for a follow up reports diarrhea has subsided and now is having constipation, abdominal pain upper mid x 2 weeks interment pain scale 5 and abdominal cramping and nausea. Nausea Constipation Abdominal Cramping Encounter Details Date Type Department Care Team (Latest Contact Info) Description 09/02/2022 1:30 PM MACHINE II CUTTER Office Visit [facility] Gastroenterology at [address] [place] [address] Richard Bowman NP [address] [place] [address] [address] [place] [address] Irritable bowel syndrome with both constipation and [...] you have a drink containing alcohol? Never 09/02/2022 Q2: How many drinks containi ng alcohol do you have on a typical day when you are drinking? Patient does not drink Q3: How often do you have si x or more drinks on one occasion? Never 09/02/2022 PHQ-2 Answer Date Recorded PHQ-2 Total Score (If total score is 3 or more points, staff should administer the PHQ-9) 0 08/09/2021 Comments No Sex and Gender Information Value Date Recorded Sex Assigned at Not on file Legal Sex Female 10:06 AM MACHINE II CUTTER Gender Identity Female 06/17/2024 7:02 AM CDT Sexual Orientation Not on file documented as of this encounter Patient Instructions * Patient Instructions* Richard Gracia NP - 09/02/2022 1:30 PM MACHINE II CUTTER To get you feeling better, you need to do a laxative cleanse as follows: -On the morning of the cleanse, take 4 (5 mg) Bisacodyl tabs. - 2 hours later mix up 8 heaping capfuls of Miralax in 1000 mls (4 capfuls per 500 mls) and drink over 2 hours. - If no significant BM 6 hours after completing miralax mixture, take 4 additional Bisacodyl tabs. -On a day to day basis, feel free to take extra strength Gas-X up to 4 times daily and I think it will really help your cramping/bloating. -You can continue Bentyl as needed for cramping, but try to take less of it overtime since can contribute to constipation. -Continue Amitiza, but try to remember to take twice daily, every day. -As needed when constipation is more problematic, add in 2 Senna-S as needed. Never go two days without a good BM before adding this in. Senna-S is a colace/senna combo pill. INE II CUTTER documented in this encounter Progress Notes * Richard Gracia NP - 09/02/2022 1:30 PM CST Images from the original note were not included. PATIENT DEMOGRAPHICS Sarahy Gill is a 52 y.o. White female. PATIENT'S CARE TEAM Patient Care Team: Parmjit Dai MD as PCP - Mere Orellana NP (Nurse Practitioner) Tico Burton MD as Surgeon (General Surgery) CHIEF COMPLAINT Chief Complaint Patient presents with Follow-up Pt here for a follow up reports diarrhea has subsided and now is having constipation, abdominal pain upper mid x 2 weeks interment pain scale 5 and abdominal cramping and nausea. Nausea Constipation Abdominal Cramping HPI New or existing patient visit: Existing. Referring Provider: Parmjit Dai MD Nkechi called a few weeks ago with problematic bowel issues/GERD symptoms. Last office visit was on 07/04. Weight is stable since that time. I ordered a KUB x- ray to evaluate fecal load, but she didnot complete. She was stuck in the cycle of diarrhea at that time, but is now constipated and has gone 1-1.5 weeks without a bowel movement. She is prescribed Amitiza 24 mcg b.i.d.. Last filled for 60 day supply on 05/31. Originally she stated that she was taking it as prescribed, but then admittedthat she forgets to take it twice daily most of the time so usually only takes it once daily. Whenever she is taking it twice daily, she does feel much better. Having a lot of abdominal cramping, bloating, and nausea. No vomiting. Heartburn and reflux are well controlled as long as she takes Protonix 40 mg daily and Pepcid 1-2 times daily as needed. She did take a course of Cipro for five days starting 08/20 for a UTI. She is using Zofran as needed for the nausea with positive benefit. She continues to have less cycles of problematic symptoms than she used to, but symptoms are still not quitewell controlled. Denies hematochezia or melena. Appetite waxes and wanes. The following testing hasbeen completed since last office visit: 06/10/22- CT abd/pelvis with IV contrast: IMPRESSION: 1. Moderate right-sided colonic stool burden. Otherwise, no acute findings in the abdomen or pelvisto explain the patient's abdominal pain. She took a course of doxycycline a few months ago to cover for SIBO, but it did not have a positiveimpact on her symptoms. She does take nortriptyline 25 mg at HS started earlier this year in it does seem to help with bothher IBS and insomnia issues so she would like to continue it. Colonoscopy last completed in [address] Aiken: A few polyps were removed. Internal hemorrhoidswere noted. Not sure when she is supposed to repeat. No family history of colon cancer. Likely needs to be on a 5 year surveillance colonoscopy schedule. EGD completed earlier this year showed mild chronic inactive gastritis and reflux esophagitis changes. Celiac screening earlier this year was negative. [...] vomiting syndrome 08/09/2021 Bipolar affect, depressed (CMS/HCC) ([facility]) 08/09/2021 Intussusception intestine (CMS/HCC) (HCC) 08/09/2021 Hypertension 08/08/2021 Abdominal pain, generalized 08/08/2021 Atrial fibrillation (CMS/HCC) ([facility]) 05/15/2020 Essential tremor 10/12/2018 Jerky body movements 10/12/2018 Irritable bowel syndrome with both constipation and diarrhea 02/23/2018 Orthostatic dizziness 09/16/2016 Palpitations 07/29/2016 Migraine headache 07/29/2016 Past Medical History: Diagnosis Date A-fib ([facility]) ([facility]) Anxiety Arthritis Bipolar affect, depressed ([facility]) ([facility]) Cyclic vomiting syndrome Depression Headache, tension-type Hypertension Hypotension IBS (irritable bowel syndrome) Migraine Stroke ([facility]) ([facility]) Weight loss Past Surgical History: Procedure Laterality [...] not drink Frequency of Binge Drinking: Never MEDICATIONS Current Outpatient Medications: apixaban (ELIQUIS) 5 mg tablet atorvastatin (LIPITOR) 40 mg tablet dicyclomine (BENTYL) 10 mg capsule escitalopram (LEXAPRO) 10 mg tablet famotidine (PEPCID) 20 mg tablet fluconazole (DIFLUCAN) 150 mg tablet lubiprostone (AMITIZA) 24 mcg capsule melatonin 5 mg tablet metoprolol XL (TOPROL-XL) 25 mg extended release tablet nortriptyline (PAMELOR) 25 mg capsule ondansetron (ZOFRAN) 4 mg tablet ondansetron ODT (ZOFRAN-ODT) [address] tablet pantoprazole [address] (PROTONIX) 40 mg EC tablet polyethylene glycol (MIRALAX) 17 gram/dose powder senna-docusate (PERICOLACE) 8.6-50 mg SUMAtriptan (IMITREX) [address] (CYMBALTA) 60 mg capsule flecainide (TAMBOCOR) 100 mg tablet hydrOXYzine (ATARAX) 50 mg tablet Medications were reviewed and updated as needed. ALLERGIES Allergies Allergen Reactions Compazine [Prochlorperazine] Other (See comments) made me feel weird, odd also agitation Phenergan [Promethazine] Agitation Reglan [Metoclopramide] Other (See comments) Had TIA after trying. Zithromax [Azithromycin] Stomach upset Allergies were reviewed [...] of this system. Genitourinary: Difficulty urinating, dysuria, frequency, urgency. Musculoskeletal: Arthralgias or myalgias. Skin: Pallor or rash. Neurological: Dizziness, light-headedness, headaches. Psychiatric/Behavioral: Decreased concentration, sleep issues, problematic depression, problematic anxiety. PHYSICAL EXAM There were no vitals taken for this visit. No LMP recorded. Patient is postmenopausal. Positive [...] person, place, time. Psychiatric: Mood/behavioral normal. TESTS/LABS/PROCEDURES 06/10/22- CT abd/pelvis with IV contrast: IMPRESSION: [...] on a 5 year surveillance colonoscopy schedule. Admission on 08/18/2022, Discharged on 08/18/2022 Component Date Value WBC 08/18/2022 11.1 (H) Hgb 08/18/2022 10.9 (L) Hct 08/18/2022 34.3 (L) Plt 08/18/2022 380 MPV 08/18/2022 10.3 RBC 08/18/2022 3.94 MCV 08/18/2022 87.1 MCH 08/18/2022 27.7 MCHC 08/18/2022 31.8 (L) RDW CV 08/18/2022 14.2 RDW SD 08/18/2022 45.7 NRBC abs 08/18/2022 0.00 Sodium 08/18/2022 138 Potassium, pl 08/18/2022 3.1 (L) Chloride 08/18/2022 102 CO2 08/18/2022 25 Anion gap 08/18/2022 11 BUN 08/18/2022 10 Creatinine 08/18/2022 0.70 Glucose 08/18/2022 107 Calcium 08/18/2022 9.1 Bilirubin, total 08/18/2022 0.3 Protein, pl 08/18/2022 7.5 Albumin 08/18/2022 4.3 Alk phos 08/18/2022 103 ALT 08/18/2022 15 AST 08/18/2022 24 Color, ur 08/18/2022 Yellow Clarity, ur 08/18/2022 Turbid (A) Specific gravity, ur 08/18/2022 1.016 pH, urine 08/18/2022 6.5 Protein, ur ql 08/18/2022 Trace Glucose, ur ql 08/18/2022 1+ (A) Ketones, ur 08/18/2022 Negative Bilirubin, ur 08/18/2022 Negative Blood, ur 08/18/2022 Negative Urobilinogen, ur 08/18/2022 <2.0 Nitrite, ur 08/18/2022 Negative Leukocyte esterase, ur 08/18/2022 2+ (A) UA reflex comment 08/18/2022 Reflex to microscopic UA will be performed. Neutrophil abs 08/18/2022 8.7 (H) Imm gran abs 08/18/2022 0.0 Lymphocyte abs 08/18/2022 1.5 Monocyte abs 08/18/2022 0.8 Eosinophil abs 08/18/2022 0.0 Basophil abs 08/18/2022 0.0 Neutrophil pct 08/18/2022 78.6 Imm gran pct 08/18/2022 0.3 Lymphocyte pct 08/18/2022 13.2 Monocyte pct 08/18/2022 7.4 Eosinophil pct 08/18/2022 0.2 Basophil pct 08/18/2022 0.3 WBC, ur 08/18/2022 0-5 RBC, ur 08/18/2022 0-2 Epithelial cells, squamo* 08/18/2022 1-5 Bacteria, ur 08/18/2022 4+ (A) Mucous, ur 08/18/2022 Present (A) Culture Reflex Comment 08/18/2022 Reflex conditions for urine culture (WBC >10) not met. eGFR 08/18/2022 103 Admission on 08/17/2022, Discharged on 08/18/2022 Component Date Value WBC 08/17/2022 10.7 (H) Hgb 08/17/2022 10.3 (L) Hct 08/17/2022 32.6 (L) Plt 08/17/2022 353 MPV 08/17/2022 10.1 RBC 08/17/2022 3.79 (L) MCV 08/17/2022 86.0 MCH 08/17/2022 27.2 MCHC 08/17/2022 31.6 (L) RDW CV 08/17/2022 14.3 RDW SD 08/17/2022 45.1 NRBC abs 08/17/2022 0.00 Sodium 08/17/2022 141 Potassium, pl 08/17/2022 3.4 Chloride 08/17/2022 105 CO2 08/17/2022 26 Anion gap 08/17/2022 10 BUN 08/17/2022 9 Creatinine 08/17/2022 1.03 Glucose 08/17/2022 137 Calcium 08/17/2022 9.2 Bilirubin, total 08/17/2022 <0.2 Protein, pl 08/17/2022 7.2 Albumin 08/17/2022 4.2 Alk phos 08/17/2022 101 ALT 08/17/2022 16 AST 08/17/2022 24 Lipase 08/17/2022 44 Color, ur 08/18/2022 Straw Clarity, ur 08/18/2022 Clear Specific gravity, ur 08/18/2022 1.002 (L) pH, urine 08/18/2022 7.0 Protein, ur ql 08/18/2022 Negative Glucose, ur ql 08/18/2022 Negative Ketones, ur 08/18/2022 Negative Bilirubin, ur 08/18/2022 Negative Blood, ur 08/18/2022 Negative Urobilinogen, ur 08/18/2022 <2.0 Nitrite, ur 08/18/2022 Negative Leukocyte esterase, ur 08/18/2022 Negative UA reflex comment 08/18/2022 Reflex conditions for microscopic UA and culture not met. HCG, ur, POC 08/18/2022 Negative Lot Number 08/18/2022 [id number] QC Backgroud Clear 08/18/2022 Acceptable QC Control Line 08/18/2022 Acceptable Trop T hs 08/17/2022 <6 Neutrophil abs 08/17/2022 7.0 (H) Imm gran abs 08/17/2022 0.0 Lymphocyte abs 08/17/2022 2.3 Monocyte abs 08/17/2022 1.1 (H) Eosinophil abs 08/17/2022 0.2 Basophil abs 08/17/2022 0.1 Neutrophil pct 08/17/2022 65.4 Imm gran pct 08/17/2022 0.3 Lymphocyte pct 08/17/2022 21.4 Monocyte pct 08/17/2022 10.0 Eosinophil pct 08/17/2022 2.2 Basophil pct 08/17/2022 0.7 Trop T hs 08/18/2022 <6 Trop T hs delta 08/18/2022 0 Trop T hs interp 08/18/2022 Insignificant eGFR 08/17/2022 65 Amphetamine, ur 08/18/2022 Not Detected Barbiturates, ur 08/18/2022 Not Detected Benzodiazepines, ur 08/18/2022 Not Detected Cannabinoids, ur 08/18/2022 Detected (A) Cocaine, ur 08/18/2022 Not Detected Fentanyl, Ur 08/18/2022 Not Detected Methadone, ur 08/18/2022 Not Detected Opiates, ur 08/18/2022 Not Detected Oxycodone, ur 08/18/2022 Not Detected Phencyclidine, ur 08/18/2022 Not Detected Urine Creatinine 08/18/2022 15 COVID-19 RNA 08/18/2022 Negative Influenza A RNA 08/18/2022 Negative Influenza B RNA 08/18/2022 Negative RSV RNA 08/18/2022 Negative Admission on 07/06/2022, Discharged on 07/06/2022 Component Date Value WBC 07/06/2022 11.8 (H) Hgb 07/06/2022 11.6 (L) Hct 07/06/2022 35.6 Plt 07/06/2022 390 MPV 07/06/2022 9.8 RBC 07/06/2022 4.16 MCV 07/06/2022 85.6 MCH 07/06/2022 27.9 MCHC 07/06/2022 32.6 RDW CV 07/06/2022 14.4 RDW SD 07/06/2022 45.1 NRBC abs 07/06/2022 0.00 Sodium 07/06/2022 141 Potassium, pl 07/06/2022 3.4 Chloride 07/06/2022 104 CO2 07/06/2022 26 Anion gap 07/06/2022 11 BUN 07/06/2022 6 (L) Creatinine 07/06/2022 0.64 Glucose 07/06/2022 126 Calcium 07/06/2022 9.6 Bilirubin, total 07/06/2022 <0.2 Protein, pl 07/06/2022 7.9 Albumin 07/06/2022 4.6 Alk phos 07/06/2022 124 ALT 07/06/2022 16 AST 07/06/2022 29 Trop T hs 07/06/2022 <6 Neutrophil abs 07/06/2022 9.0 (H) Imm gran abs 07/06/2022 0.0 Lymphocyte abs 07/06/2022 1.7 Monocyte abs 07/06/2022 1.0 (H) Eosinophil abs 07/06/2022 0.1 Basophil abs 07/06/2022 0.0 Neutrophil pct 07/06/2022 76.4 Imm gran pct 07/06/2022 0.3 Lymphocyte pct 07/06/2022 14.2 Monocyte pct 07/06/2022 8.1 Eosinophil pct 07/06/2022 0.7 Basophil pct 07/06/2022 0.3 Trop T hs 07/06/2022 <6 Trop T hs delta 07/06/2022 0 Trop T hs interp 07/06/2022 Insignificant COVID-19 RNA 07/06/2022 Negative Influenza A RNA 07/06/2022 Negative Influenza B RNA 07/06/2022 Negative RSV RNA 07/06/2022 Negative eGFR 07/06/2022 105 Admission on 06/09/2022, Discharged on 06/10/2022 Component Date Value WBC 06/09/2022 14.8 (H) Hgb 06/09/2022 11.1 (L) Hct 06/09/2022 34.4 (L) Plt 06/09/2022 349 MPV 06/09/2022 10.2 RBC 06/09/2022 3.93 MCV 06/09/2022 87.5 MCH 06/09/2022 28.2 MCHC 06/09/2022 32.3 RDW CV 06/09/2022 13.8 RDW SD 06/09/2022 44.2 NRBC abs 06/09/2022 0.00 Sodium 06/09/2022 140 Potassium, pl 06/09/2022 3.5 Chloride 06/09/2022 103 CO2 06/09/2022 27 Anion gap 06/09/2022 10 BUN 06/09/2022 9 Creatinine 06/09/2022 0.72 Glucose 06/09/2022 146 Calcium 06/09/2022 9.6 Bilirubin, total 06/09/2022 0.2 Protein, pl 06/09/2022 7.4 Albumin 06/09/2022 4.5 Alk phos 06/09/2022 116 ALT 06/09/2022 12 AST 06/09/2022 23 COVID-19 RNA 06/09/2022 Negative Influenza A RNA 06/09/2022 Negative Influenza B RNA 06/09/2022 Negative RSV RNA 06/09/2022 Negative Color, ur 06/09/2022 Straw Clarity, ur 06/09/2022 Clear Specific gravity, ur 06/09/2022 1.005 pH, urine 06/09/2022 7.5 Protein, ur ql 06/09/2022 Negative Glucose, ur ql 06/09/2022 Negative Ketones, ur 06/09/2022 Negative Bilirubin, ur 06/09/2022 Negative Blood, ur 06/09/2022 Negative Urobilinogen, ur 06/09/2022 <2.0 Nitrite, ur 06/09/2022 Negative Leukocyte esterase, ur 06/09/2022 Negative UA reflex comment 06/09/2022 Reflex conditions for microscopic UA and culture not met. Sepsis Lactate 06/09/2022 1.4 Report 06/09/2022 Value:Final Report: No growth Report 06/09/2022 Value:Final Report: No growth Trop T hs 06/09/2022 <6 Amphetamine, ur 06/09/2022 Not Detected Barbiturates, ur 06/09/2022 Not Detected Benzodiazepines, ur 06/09/2022 Not Detected Cannabinoids, ur 06/09/2022 Detected (A) Cocaine, ur 06/09/2022 Not Detected Fentanyl, Ur 06/09/2022 Not Detected Methadone, ur 06/09/2022 Not Detected Opiates, ur 06/09/2022 Not Detected Oxycodone, ur 06/09/2022 Not Detected Phencyclidine, ur 06/09/2022 Not Detected Urine Creatinine 06/09/2022 44 Neutrophil abs 06/09/2022 11.2 (H) Imm gran abs 06/09/2022 0.1 Lymphocyte abs 06/09/2022 1.8 Monocyte abs 06/09/2022 1.6 (H) Eosinophil abs 06/09/2022 0.1 Basophil abs 06/09/2022 0.1 Neutrophil pct 06/09/2022 75.8 Imm gran pct 06/09/2022 0.5 Lymphocyte pct 06/09/2022 12.1 Monocyte pct 06/09/2022 10.8 Eosinophil pct 06/09/2022 0.4 Basophil pct 06/09/2022 0.4 eGFR 06/09/2022 99 GI ASSESSMENT/PLAN (K58.2) Irritable bowel syndrome with both constipation and diarrhea (primary encounter diagnosis) Chronic condition that waxes and wanes in severity. Constipation predominant. Symptoms seem to be improving over time with better management of her underlying constipation, but still having some significant cycles of both diarrhea and constipation (although less cycles of problematic symptoms are occurring over time). She was given the following instructions/plan to follow after today's visit: To get you feeling better, you need to do a laxative cleanse as follows: -On the morning of the cleanse, take 4 (5 mg) Bisacodyl tabs. - 2 hours later mix up 8 heaping capfuls of Miralax in 1000 mls (4 capfuls per 500 mls) and drink over 2 hours. - If no significant BM 6 hours after completing miralax mixture, take 4 additional Bisacodyl tabs. -On a day to day basis, feel free to take extra strength Gas-X up to 4 times daily and I think it will really help your cramping/bloating. -You can continue Bentyl as needed for cramping, but try to take less of it overtime since can contribute to constipation. -Continue Amitiza, but try to remember to take twice daily, every day. -As needed when constipation is more problematic, add in 2 Senna-S as needed. Never go two days without a good BM before adding this in. Senna-S is a colace/senna combo pill. (R11.0) Chronic nausea (K21.00) Gastroesophageal reflux disease with esophagitis without [...] intact on EGD completed in early . Smoking cessation encouraged. Can continue PRN Zofran. (Z98.890, Z86.010) History of colonoscopy with polypectomy Needs repeat colonoscopy at the five year point, in 2024. Return in about 10 weeks (around 11/11/2022) for IBS C & D . Medication(s) and/or immunization(s) uses and side effects briefly discussed. Patient verbalizes understanding of all instructions provided today and agrees with plan. Total time spent on the date of the dakg-lb-bplc encounter, including both ziks-yb-sosm time (including staff/provider time spent providing education) and nkn-nmez-ov-face time (pre-charting, reviewing chart, post-charting) was 32 minutes. This note is dictated and transcribed by [employer]. Radiology Asst variances may occur. Despite proofreading, typographical errors may occur. My collaborating physician is Dr. Germania Sorto- Gastroenterology. Richard Gracia NP INE II CUTTER documented in this encounter Plan of Treatment Upcoming Encounters Date Type Department Care Team (Latest Contact Info) Description 09/07/2024 8:30 AM MACHINE II CUTTER Hospital Encounter [facility] [address] [place] [phone] Forest Catherine MD [address] [address] 09/07/2024 8:30 AM MACHINE II CUTTER - 09/07/2024 9:00 AM MACHINE II CUTTER Surgery [facility] [address] [place] [phone] Forest Catherine MD [address] [address] EGD w/Endo Flip & YI placement Scheduled Procedures Name Priority Associated Diagnoses Date/Ti me ESOPHAGOGASTRODUODENOSCOPY Hiatal hernia Gastroesophageal reflux disease, unspecified whether esophagitis present 09/07/2024 8:30 AM MACHINE II CUTTER documented as of this encounter Visit Diagnoses [...] Discontinue Reason Start Date End Da te ciprofloxacin (CIPRO) 250 mg tablet TAKE 1 TABLET BY MOUTH EVERY DAY FOR 5 DAYS 08/20/2022 09/02/2022 clonazePAM (KlonoPIN) 0.5 mg tablet Take 0.5 mg by mouth every morning 09/12/2021 09/02/2022 flecainide (TAMBOCOR) 50 mg tablet Take 50 mg by mouth 2 (two) times a day 09/02/2022 hydrOXYzine (ATARAX) 25 mg tablet Take 25 mg by mouth 3 (three) times a day as needed 08/14/2021 09/02/2022 venlafaxine XR (EFFEXOR-XR) 37.5 mg 24 hr capsule Take 37.5 mg by mouth daily 12/12/2021 09/02/2022 documented as of this encounter Historical Medications * This list may reflect changes made after this encounter. flecainide (TAMBOCOR) 100 mg tablet TAKE 1 TABLET BY MOUTH TWICE DAILY. START TAKING Saturday 07/0707/08/2022 hydrOXYzine (ATARAX) 50 mg tablet Take 50 mg by mouth 3 (three) times a day 08/20/2022 09/05/[address] (CYMBALTA) 60 mg capsule Take 60 mg by mouth daily 08/20/2022 09/05/2022 ciprofloxacin (CIPRO) 250 mg tablet TAKE 1 TABLET BY MOUTH EVERY DAY FOR 5 DAYS 08/20/2022 09/02/2022 added in this encounter Care Teams Beader Relationship Specialty Start Date End Date Parmjit Dai MD PCP - General 12/31/20 Mere Landa NP Nurse Practitioner 02/07/20 Tico Burton MD Surgeon General Surgery 08/09/21 documented as of this encounter
--- OUTSIDE RECORDS SUMMARY | 2024-08-16 04:34 | XMS_ITS | Encounter Summary ---
Author Organization [facility] Address [address] [place] [address] Care Team Providers Care Coal Cager Name Role Phone Mere Landa NP Unavailable [phone] Parmjit Dai MD Primary Care Provider [phone] Tico Burton MD Unavailable [phone] Encounter Details Date Type Department Care Team (Late st Contact Info) Description 03/28/2022 Orders Only [facility] Gastroenterology at [address] [place] [phone] Katerine Lundy PA [address] [place] [address] [address] [place] [address] Social History Tobacco Use Types [...] on file Legal Sex Female 10:06 AM CASING SPLITTER Gender Identity Female 06/17/2024 7:02 AM CDT Sexual Orientation Not on file documented as of this encounter Ordered Prescriptions Prescription Sig Dispense Quantity Refills Last Filled Start Date End Date hydrocortisone (ANUSOL-HC) 2.5 % rectal cream Insert into the rectum 2 (two) times a day for 14 days 30 g 03/28/2022 04/11/2022 documented in this encounter Plan of Treatment Upcoming Encounters Date Type Department Care Team (Latest Contact Info) Description 09/07/2024 8:30 AM CASING SPLITTER Hospital Encounter [facility] [address] [place] [phone] Forest Catherine MD [address] [address] 09/07/2024 8:30 AM CASING SPLITTER - 09/07/2024 9:00 AM CASING SPLITTER Surgery [facility] [address] [place] [phone] Forest Catherine MD [address] [address] EGD w/Endo Flip & YI placement Scheduled Procedures Name Priority Associated Diagnoses Date/Ti ak ESOPHAGOGASTRODUODENOSCOPY Hiatal hernia Gastroesophageal reflux disease, unspecified whether esophagitis present 09/07/2024 8:30 AM CASING SPLITTER documented as of this encounter Visit Diagnoses Not on filedocumented in this encounter Care Teams Coal Cager Relationship Specialty Start Date End Date Parmjit Dai MD PCP - General 12/31/20 Mere Landa NP Nurse Practitioner 02/07/20 Tico Burton MD Surgeon General Surgery 08/09/21 documented as of this encounter
--- OUTSIDE RECORDS SUMMARY | 2024-08-16 04:34 | XMS_ITS | Encounter Summary ---
Author Organization [facility] Address [address] [place] [address] Care Team Providers Care Section 8 Property Manager Name Role Phone Mere Landa NP Unavailable [phone] Parmjit Dai MD Primary Care Provider [phone] Tico Burton MD Unavailable [phone] Encounter Details Date Type Department Care Team (Late st Contact Info) Description 01/30/2022 Telephone [facility] Gastroenterology at [address] [place] [address] Keri Chamberlain MA Social History Tobacco Use Types Packs/Day [...] file Legal Sex 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 May repeat dose in 72 hours if no resolution of symptoms. 2 tablet 01/30/2022 3 documented in this encounter Miscellaneous Notes * Telephone Encounter - Corina Petersen MA - 01/30/2022 1:11 PM CDT Informed pt of the below information. * Telephone Encounter - Vinita Gracia NP - 01/30/2022 12:08 PM CDT Dicyclomine does not tend to cause yeast infections. I sent a round of Diflucan. She should follow-up with PCP or Gyne if symptoms persist. * Addendum Note - Vinita Gracia NP - 01/30/2022 12:08 PM CDTAddended by: VINITA GRACIA on: 01/30/2022 12:08 PM Modules accepted: Orders * Telephone Encounter - Keri Chamberlain MA - 01/30/2022 8:44 AM CDT Pt call stating that she has been taking dicyclomine and now has developed a yeast infection and would like a script sent to [facility] in [place], will call her back documented in this encounter Plan of Treatment Upcoming Encounters Date Type Department Care Team (Latest Contact Info) Description 09/07/2024 8:30 AM SENIOR SCIENTIST Hospital Encounter [facility] [address] [place] [phone] Forest Catherine MD [address] [address] 09/07/2024 8:30 AM SENIOR SCIENTIST - 09/07/2024 9:00 AM SENIOR SCIENTIST Surgery [facility] [address] [place] [phone] Forest Catherine MD [address] [address] EGD w/Endo Flip & YI placement Scheduled Procedures Name Priority Associated Diagnoses Date/Ti me ESOPHAGOGASTRODUODENOSCOPY Hiatal hernia Gastroesophageal reflux disease, unspecified whether esophagitis present 09/07/2024 8:30 AM SENIOR SCIENTIST documented as of this encounter Visit Diagnoses Not on filedocumented in this encounter Care Teams Section 8 Property Manager Relationship Specialty Start Date End Date Parmjit Dai MD PCP - General 12/31/20 Mere Landa NP Nurse Practitioner 02/07/20 Tico Burton MD Surgeon General Surgery 08/09/21 documented as of this encounter
--- OUTSIDE RECORDS SUMMARY | 2024-08-16 04:34 | XMS_ITS | Encounter Summary ---
Author Organization [facility] Healthcare Address [address] [place] [address] Care Team Providers Care Stylist Apprentice Name Role Phone Mere Landa NP Unavailable [phone] Parmjit Dai MD Primary Care Provider [phone] Tico Burton MD Unavailable [phone] Encounter Details Date Type Department Care Team (Late st Contact Info) Description 01/17/2022 2:55 PM CDT Lab [address] Germania Sorto MD [address] [place] [id number] Richard Bowman NP [address] [place] [phone] Irritable bowel syndrome with both constipation and diarrhea; Periumbilical abdominal pain; Chronic nausea Discharge Disposition: Discharge to home or self [...] on file Legal 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 * Result Encounter Note - Richard Gracia NP - 01/20/2022 4:09 PM CDT See my chart comment as follows: Anemia is improving. Celiac screening is still pending. documented in this encounter Plan of Treatment Upcoming Encounters Date Type Department Care Team (Latest Contact Info) Description 09/07/2024 8:30 AM [facility] Hospital Encounter [facility] [address] [place] [phone] Forest Catherine MD [address] [place] [address] 09/07/2024 8:30 AM BATTERY STARTER - 09/07/2024 9:00 AM BATTERY STARTER Surgery [facility] [address] [place] [phone] Forest Catherine MD [address] [place] [address] EGD w/Endo Flip & YI placement Scheduled Procedures Name Priority Associated Diagnoses Date/Ti me ESOPHAGOGASTRODUODENOSCOPY Hiatal hernia Gastroesophageal reflux disease, unspecified whether esophagitis present 09/07/2024 8:30 AM BATTERY STARTER documented as of this encounter Procedures Procedure Name Priority Date/Time Associated Diagnosis Comments DIFFERENTIAL AUTO Routine 01/17/2022 2:5 3 PM CDT Irritable bowel syndrome with both constipation and diarrhea CBC WITH AUTO DIFFERENTIAL Routine 01/17/2022 2:53 PM CDT Irritable bowel syndrome with both constipation and diarrhea CELIAC REFLEX PANEL Routine 01/17/2022 2 :53 PM CDT Irritable bowel syndrome with both constipation and diarrhea Periumbilical abdominal pain Chronic nausea TISSUE TRANSGLUTAMINASE, IGA Routine 01/17/2022 2:53 PM CDT documented in this encounter Results * Tissue transglutaminase IgA (TGG-IgA Ab) (01/17/2022 2:53 PM CDT) [facility] TTG ab, IgA <1.2 <4.0 (Negative) units/mL [facility] Comment: Test Performed by: [place] [address] [employer]eral Limousine Driver: Cheo Yuen M.D. Ph.D.; CLIA# [id number] Blood 01/17/2022 2:53 PM CDT 01/17/2022 5:37 PM CDT us Richard Bowman CONVEX GRINDER OPERATOR LAB BLOOD ORDERABLE S Final Result [facility] [address] [facility] Department [place] [address] * (ABNORMAL) Differential, auto (01/17/2022 2:53 PM CDT) Neutrophil abs 6.5 1.7 - 6.5 K/cumm [facility] ([place] Imm gran abs 0.0 0.0 - 0.1 K/cumm [facility] ([place] Lymphocyte abs 1.8 0.8 - 3.3 K/cumm [facility] ([place]) Monocyte abs 1.1(H) 0.2 - 0.8 K/cumm [facility] ([place]) Eosinophil abs 0.2 0.0 - 0.5 K/cumm [facility] ([place]) Basophil abs 0.1 0.0 - 0.1 K/cumm [facility] ([place]) Neutrophil pct 67.1 % [facility] ([place]) Comment: Interpretive Data Percent cell count reference ranges are not reported, since discordance with absolute values may lead to misinterpretation of CBC data. Current Interpretive Data was last revised on 2017. Imm gran pct 0.2 % [facility] ([place]) Comment: Interpretive Data Percent cell count reference ranges are not reported, since discordance with absolute values may lead to misinterpretation of CBC data. Current Interpretive Data was last revised on 2017. Lymphocyte pct 18.6 % [facility] ([place]) Comment: Interpretive Data Percent cell count reference ranges are not reported, since discordance with absolute values may lead to misinterpretation of CBC data. Current Interpretive Data was last revised on 2017. Monocyte pct 11.1 % [facility] ([place]) Comment: Interpretive Data Percent cell count reference ranges are not reported, since discordance with absolute values may lead to misinterpretation of CBC data. Current Interpretive Data was last revised on 2017. Eosinophil pct 2.4 % [facility] ([place]) Comment: Interpretive [...] Data was last revised on 2017. Blood 01/17/2022 2:53 PM CDT 01/17/2022 5:37 PM CDT Richard Bowman LAB BLOOD ORDERABLE S Final Result Performing Organization Address [facility] Co de Phone Number [facility] 1 [facility] [place] [address] * Celiac reflex panel (01/17/2022 2:53 PM CDT) IgA 223 61 - 356 mg/dL [facility]) Celiac disease interpretation See Comment [facility]) Comment: Negative serology. Celiac disease unlikely. However, approximately 10% of patients with celiac disease are seronegative. Also, patients who are already adhering to a gluten-free diet may be seronegative. If celiac disease is highly clinically suspected, consider HLA-DQ typing. Test Performed by: [place] [address] [employer] Limousine Driver: Cheo Yuen M.D. Ph.D.; CLIA# [id number] Blood 01/17/2022 2:53 PM CDT 01/17/2022 5:37 PM CDT Richard Bowman LAB BLOOD ORDERABLE S Final Result Performing Organization Address [facility] de Phone Number [facility] 1 [facility] [place] [address] * (ABNORMAL) CBC with auto differential (01/17/2022 2:53 PM CDT) WBC 9.6 3.8 - 9.9 K/cumm [facility] ([place] Hgb 11.5(L) 11.9 - 15.5 g/dL [facility] ([place] Hct 36.1 35.6 - 45.5 % [facility] Plt 353 150 - 400 K/cumm [facility] ([place] MPV 10.9 9.1 - 12.3 fL [facility] RBC 4.12 3.90 - 5.20 M/cumm [facility] ([place] MCV 87.6 81.3 - 96.4 fL [facility] MCH 27.9 27.1 - 33.3 pg [facility] MCHC 31.9(L) 32.3 - 35.7 g/dL [facility] RDW CV 17.0(H) 11.1 - 14.9 % [facility] RDW SD 54.7(H) 35.7 - 48.1 fL [facility] NRBC abs 0.00 0.00 - 0.01 K/cumm [facility] ([place] Blood 01/17/2022 2:53 PM CDT 01/17/2022 5:37 PM CDT Richard Bowman NP LAB BLOOD ORDERABLE S Final Result [facility] [address] [facility] Department [place] [address] documented in this encounter Visit Diagnoses Diagnosis Irritable bowel syndrome with both constipation and diarrhea Periumbilical abdominal pain Abdominal pain, periumbilic Chronic nausea Nausea alone Hiatal hernia Diaphragmatic hernia without mention of obstruction or gangrene Gastroesophageal reflux disease, unspecified whether esophagitis present documented in this encounter Care Teams Stylist Apprentice Relationship Specialty Start Date End Date Parmjit Dai MD PCP - General 12/31/20 Mere Landa NP Nurse Practitioner 02/07/20 Tico Burton MD Surgeon General Surgery 08/09/21 documented as of this encounter
--- OUTSIDE RECORDS SUMMARY | 2024-08-16 04:34 | XMS_ITS | Encounter Summary ---
Author Organization [facility] Healthcare Address [address] [place] [address] Care Team Providers Care Director Of Conservation Name Role Phone Mere Landa NP Unavailable [phone] Parmjit Dai MD Primary Care Provider [phone] Tico Burton MD Unavailable [phone] Reason for Visit * Reason Comments Vomiting * Auth/Cert Specialty Diagnoses / Procedures Referred By Contac t Referred To Contact Diagnoses Cyclical vomiting Colitis Procedures na Referral ID Status Reason Start Date Expiration Date Visits Re quested Visits Authorized [id number] 1 1 Encounter Details Date Type Department Care Team (Late st Contact Info) Description 09/05/2022 3:55 AM SEPTIC TECHNICIAN - 09/05/2022 3:53 PM SEPTIC TECHNICIAN Emergency [facility] Surgery Care [address] [place] [address] Cornelius Monson MD [address] [place] [address] [place] [address] [place] [id number] Juve Sheldon MD [address] [place] [address] # [place] [address] Geraldo Vazquez MD [address] [facility] [place] [address] Yadi Kulkarni MD [address] [place] [address] [place] [address] Cyclical vomiting (Primary Dx); Colitis Discharge Disposition: Discharge to home or [...] on file Legal Sex Female 10:06 AM SEPTIC TECHNICIAN Gender Identity Female 06/17/2024 7:02 AM CDT Sexual Orientation Not on file documented as of this encounter Last Filed Vital Signs Vital Sign Reading Time Taken Comments Blood Pressure 108/57 09/05/2022 11:29 AM SEPTIC TECHNICIAN Pulse 92 09/05/2022 2:08 PM SEPTIC TECHNICIAN Temperature 36.3 ??C (97.4 ??F) 09/05/2022 11:[address] Respiratory Rate 18 09/05/2022 11:29 AM SEPTIC TECHNICIAN Oxygen Saturation 100% 09/05/2022 11:29 AM SEPTIC TECHNICIAN Inhaled Oxygen Concentration - - Weight 62.6 kg (138 lb 0.1 oz) 09/05/2022 3:57 A M SEPTIC TECHNICIAN Height - - Body Mass Index 23.69 09/04/2022 6:44 AM SEPTIC TECHNICIAN documented in this encounter Discharge Summaries * Joshua Pearson MD - 09/05/2022 3:29 PM CST Inpatient same day H&P/Discharge Summary Patient Name - Sarahy Gill Patient Age - 52 yrs Patient - [id number] [facility] - [id number] Document Creation Date: 09/05/2022 Admitting Provider, MD: Geraldo Vazquez MD Discharge Provider, : Yadi Kulkarni MD Primary Care Physician at Discharge: Parmjit Dai MD [phone] Admission Date: 09/05/2022 Discharge Date/time: 09/05/2022 Admission Location: [facility] LOS - LOS: 0 days DETAILS OF HOSPITAL STAY Hospital Problems/Diagnoses Principal Problem: Cyclical vomiting Active Problems: Irritable bowel syndrome with both constipation and diarrhea Hypertension Atrial fibrillation (CMS/HCC) (HCC) Bipolar affect, depressed (CMS/HCC) (HCC) Chronic nausea Hepatic steatosis Chronic anemia Gastroesophageal reflux disease with esophagitis without hemorrhage Gastritis Reason for Hospitalization: CC: Uncontrolled nausea and vomiting Sarahy Gill is a 52 y.o. female with a PMH of cyclic vomiting syndrome, cannabis use, bipolardisorder, hypertension, GERD, hepatic steatosis, anemia. HPI: Patient is a 52-year-old female who presented to the emergency department earlier this morning withcomplaints of nausea/vomiting, diarrhea and epigastric abdominal discomfort. Patient has multiple visits to the emergency department over the last week complaining of similar symptoms. CT abd yesterday showed colitis. She was discharged at that time with a diagnosis of mild colitis on Flagyl and cefepime which she has taken for 1 day. Yet returned with similar symptoms. Patient has also been seenby her desk operator this past week who reported for her to continue to take the Zofran along with the antibiotics. That they believed it was of possibly a flare from her IBS versus colitis. Urine drug screen 08/18 positive for cannabinoids. Patient reports daily marijuana use and cites that it helps with anxiety and helps her to have an appetite. Has been advised on multiple hospitalizations to avoid marijuana as could be the cause of her cyclic vomiting. Patient reports that she quit smoking marijuana for short time and continued to have nausea and vomiting. These symptoms are not new for this patient. She has intermittently experienced flares over the past requiring hospitalization. She has had multiple changes in her medications due to abnormal side effects to medications previously tolerated like Compazine, Phenergan, Reglan, hydroxyzine. All of which have been on her home med list in tolerated. Unclear if these are true allergies. Patient on home Bentyl p.r.n., q.i.d. Gas-X p.r.n., p.r.n. Zofran with 40 mg and 80 mg available, 40 mg of Protonixdaily, Colace/senna p.r.n., b.i.d. Amitiza, and MiraLax p.r.n.. Hospital course While in the emergency department patient had mild leukocytosis which is her baseline, urinalysis was unremarkable with reflex conditions not met. Lipase 48 and with normal limits. CMP reassuring with normal kidney function and GFR at 85. 09/04/22 CT-AB with contrast performed yesterday noted to milddiffuse thickening of the colon with mild colitis, diverticulosis no diverticulitis, mild diffuse hepatic steatosis. At day of DC denying any nausea, vomiting or abdominal pain. She has not had emesis or diarrhea since admission. She is no longer complaining of heartburn. She has no dysphagia or melena noted. She is currently on day 10/07 of Cipro and Flagyl for her colitis. Zofran for nausea and vomiting which is helping. Patient diet progressed to full liquid diet and tolerating so far. She reports that she hasbeen told she needs a colonoscopy which can be arranged as an outpatient. Patient has regular follow-up with her GI doctor. Patient has no nausea or vomiting, is tolerating p.o. fluids and food, has had a bowel movement and is no longer complaining of abdominal pain. Vital signs are reviewed with patient stable at this time. GI has signed off. Patient stable for discharge at this time. Colitis Abdominal pain, generalized Irritable bowel syndrome with both constipation and diarrhea Cyclic vomiting syndrome Chronic nausea hepatic steatosis Assessment Patient has history of cyclic vomiting syndrome, and chronic marijuana use. Unclear as to what could be the cause as she does report marijuana use as recent as yesterday. EGD 12/18/21 which noted erythematous mucosa in antrum likely mild chronic gastritis, mild reflux esophagitis; biopsies unremarkable. Patient reports allergy to Compazine, Phenergan, Reglan. Previously tolerated as home medications and received in hospital. Unclear as if these are real allergies. Interval history Patient seen at bedside in is currently tolerating p.o. fluid and full liquid diet. Physical exam with minimal abdominal tenderness on deep palpation. Nausea and vomiting controlled with p.o. and IV Zofran. Had small loose bowel movement which did not sound like diarrhea per patient's description. Patient has mild leukocytosis at baseline WBC 12.[address] abdomen 09/04/2022 showed mild diffuse thickening of the colon indicating mild colitis, no fat stranding. Patient started on antibiotics on day 2 of 7 Cipro and Flagyl. CMP with normal AST and ALTs no LFT abnormalities noted. Plan - continue p.o. Cefepime and Flagyl day 2 - patient admits to cannabinoid use despite being advised to stop. - continue home Amitiza b.i.d., nortriptyline 25 mg q.h.s., Bentyl 20 mg q.i.d. p.r.n., - cholestyramine as needed to bulk up stools, avoid home laxative regimens at this time, and restart after diarrhea is resolved. - p.r.n. 4 mg Zofran Q 4 p.r.n. - Protonix 40 mg q.day - Diet progression as tolerated: Full liquid diet and asking for regular food; continue with - GI on consult will follow-up as outpatient, has signed off and okay to discharge - colonoscopy and stool studies will be arranged as outpatient Marijuana use Assessment & Plan Patient admits to daily marijuana use. Possibly contributing to cyclic vomiting. Patient has been advised during multiple hospital visits to quit smoking marijuana as it makes it hard to to discern what is causing her cyclic vomiting. Marijuana use does fit the bill however also has IBS and ongoingcolitis. Patient reports is the only thing that stimulates her appetite and controls her anxiety. - 08/18/2022 UDS: Positive for cannabinoid Bipolar affect, depressed (CMS/HCC) ([facility]) Assessment & Plan Patient has history of bipolar disease depression type. Currently denies any suicidal homicidal ideation. Says that she is doing well overall and is stable at this time. Patient was previously takinghydroxyzine but says she has been having bad reactions to it and has not been taking at home. She has multiple psych medications on her reconciled med list that she are not currently taking. Patient currently only taking Zoloft and nortriptyline. - home Zoloft 10 mg not on formulary patient temporarily transferred to citalopram 10 mg. Will continue Zoloft on discharge. - nortriptyline 25 mg q.h.s. continue Atrial fibrillation ([facility]) (HCC) Assessment & Plan Patient has history of AFib. - Anticoagulation: Eliquis 5 mg b.i.d. - Rate control: Metoprolol XL 25 mg q.day, flecainide 50 mg b.i.d. - Pt on telemetry at this time: Normal sinus rhythm - will continue to monitor Hypertension Assessment & Plan Have reviewed 24 hour blood pressures and stable at this time. 24 hour BP range: (108-137)/(56-94) 108/57 - will continue home blood pressure medications metoprolol XL 25 mg q.day Discharge Details Physical Exam at Discharge: Discharge Condition: good Pulse: 92 Resp: 18 BP: 108/57 Temp: 36.3 ??C (97.4 ??F) Weight: 62.6 kg (138 lb 0.1 oz) Pertinent Exam Findings at Discharge: General; patient reports no nausea or vomiting, is breathing comfortably on room air, does report anxiety. Lungs: Clear to auscultation bilaterally, normal respiratory effort, no wheezing rhonchi rales Cardio: Normal heart sounds with regular rate and rhythm, S1 and S2 appreciated, no murmurs, gallops, rubs, denies chest pain or palpitations Abdomen: Soft, nondistended, nontender do light and when distracted no pain on deep palpation, no guarding, no rebound tenderness no noted masses MSK: Patient able to ambulate on her own with normal gait no weakness,No peripheral edema noted, Discharge Disposition: Discharge to home or self care Code Status at Discharge: Full Code Active Issues & Recommended Plan for Follow-up: Follow-up with your PCP 1 week after discharge for continuity of care. Follow-up with your GI specialists possible colonoscopy with stool studies as outpatient. Allergies: Compazine [prochlorperazine], Phenergan [promethazine], Reglan [metoclopramide], and Zithromax [azithromycin] Discharge Medications: Your medication list START taking these medications Instructions Last Dose Given Next Dose Due fluconazole 150 mg tablet Commonly known as: DIFLUCAN Start taking on: September 06, 2022 Notes to patient: Anti fungal medication Take 1 tablet (150 mg total) by mouth daily for 4 doses CONTINUE taking these medications Instructions Last Dose Given Next Dose Due apixaban 5 mg tablet Commonly known as: ELIQUIS Take 5 mg by mouth 2 (two) times a day atorvastatin 40 mg tablet Commonly known as: LIPITOR Take 1 tablet (40 mg total) by mouth daily ciprofloxacin 500 mg tablet Commonly known as: CIPRO Take 1 tablet (500 mg total) by mouth 2 (two) times a day dicyclomine 10 mg capsule Commonly known as: BENTYL Take 2 capsules (20 mg total) by mouth 4 (four) times a day as needed (abdominal pain/cramping) escitalopram 10 mg tablet Commonly known as: LEXAPRO Take 10 mg by mouth daily famotidine 20 mg tablet Commonly known as: [...] ANY MISSED DOSES Commonly known as: AMITIZA TAKE 1 CAPSULE(24 MCG) BY MOUTH TWICE DAILY WITH MEALS metoprolol XL 25 mg extended release tablet Commonly known as: TOPROL-XL Take 25 mg by mouth daily metroNIDAZOLE 500 mg tablet Commonly known as: FLAGYL Take 1 tablet (500 mg total) by mouth 3 (three) times a day for 7 days nortriptyline 25 mg capsule Commonly known as: PAMELOR Take 1 capsule (25 mg total) by mouth nightly ondansetron 4 mg tablet Commonly known as: ZOFRAN Take 1 tablet (4 mg total) by mouth every 6 (six) hours ondansetron ODT 8 mg disintegrating tablet Doctor's comments: 4 mg dose is not working. Commonly known as: ZOFRAN-ODT Take 1 tablet (8 mg total) by mouth every 6 (six) hours as needed for nausea or vomiting pantoprazole DR 40 mg EC tablet Commonly known as: PROTONIX Take 1 tablet (40 mg total) by mouth daily SUMAtriptan 50 mg tablet Commonly known as: IMITREX Take 50 mg by mouth once as needed for migraine May repeat dose once in 2 hours if no relief. Do not exceed 2 doses in 24 hours. traMADoL 50 mg tablet Commonly known as: ULTRAM Take 1 tablet (50 mg total) by mouth every 6 (six) hours as needed for pain for up to 15 doses Where to Get Your Medications These medications were sent to [id number] - [place], [place] - [address] [facility] [address], [facility] [id number] fluconazole 150 mg tablet Time Spent in Discharge Process: I have spent 45 minutes on discharge planning activities. Time spent was on Coordination of care, Counselling with patient/family, discharge exam, parent/patient education, and PCP communication Test Results Pending at Discharge (If Blank, None Found): Operative Procedures Performed (If Blank, None Found): Outpatient Follow-Up: Future Appointments Date Time Provider Department Center 11/12/2022 9:00 AM Richard Gracia NP [facility] 12/02/2022 8:30 AM Richard Gracia NP [facility] Contact Information for Follow-ups Parmjit Dai MD Specialty: Family Medicine [address] [place] [address] DR TIANA SANTIAGO [address] [place] [id number] Next Steps: Follow up in 1 week(s) Instructions: Please call office to make an appointment Please schedule an appointment with the following provider(s): Parmjit Dai MD [address] [place] [address] DR TIANA SANTIAGO [address] [place] [id number] Follow up in 1 week(s) Please call office to make an appointment ANCILLARY INFORMATION Other Procedures & Diagnostic Tests: No results found. Recent Labs: Recent Labs Lab Units 09/04/22 0727 WBC K/cumm 12.1* HEMOGLOBIN g/dL 12.0 HEMATOCRIT % 37.5 PLATELETS K/cumm 455* Recent Labs Lab Units 09/04/22 0727 WBC K/cumm 12.1* HEMOGLOBIN g/dL 12.0 HEMATOCRIT % 37.5 PLATELETS K/cumm 455* NEUTROS PCT % 73.6 LYMPHS PCT % 15.2 MONOS PCT % 8.6 EOS PCT % 1.7 Recent Labs Lab Units 09/04/22 0727 SODIUM mmol/L 138 POTASSIUM PLASMA mmol/L 3.7 CHLORIDE mmol/L 99 CO2 mmol/L 29 BUN SERUM mg/dL 14 CREATININE mg/dL 0.82 [id number] mL/min/1.73 m2 85 GLUCOSE mg/dL 113 CALCIUM mg/dL 9.9 ALBUMIN g/dL 4.6 Recent Labs Lab Units 09/04/22 0727 SODIUM mmol/L 138 POTASSIUM PLASMA mmol/L 3.7 CHLORIDE mmol/L 99 CO2 mmol/L 29 ANIONGAP mmol/L 10 GLUCOSE mg/dL 113 BUN SERUM mg/dL 14 CREATININE mg/dL 0.82 CALCIUM mg/dL 9.9 ALBUMIN g/dL 4.6 ALK PHOS Units/L 108 ALT Units/L 19 AST Units/L 27 BILIRUBIN TOTAL mg/dL 0.5 Recent Labs Lab Units 09/04/22 0727 ALK PHOS Units/L 108 BILIRUBIN TOTAL mg/dL 0.5 TOTAL PROTEIN g/dL 8.0 ALT Units/L 19 AST Units/L 27 Lab Results Component Value Date GLUCOSE 113 09/04/2022 GLUCOSE 107 08/18/2022 GLUCOSE 137 08/17/2022 Implant: Implants No active implants to display in this view. General Precautions (If Blank, None Found): Isolation Status: No active isolations Nutritional Status and in-house recommendations: Dietary Orders (From admission, onward) Start Ordered 09/05/22 0958 Adult Diet Full Liquid Diet effective now Comments: Advanced as tolerated Question: ([facility]) Diet Type Answer: Full Liquid 09/05/22 0957 Anticoagulation Indication: INR: No results found for requested labs within last 720 hours. Warfarin Administrations (last 168 hours) None Oxygen Status: O2 Therapy for the past 12 hrs: O2 Therapy 09/05/22 1129 None (Room air) 09/05/22 0928 None (Room air) 09/05/22 0806 None (Room air) 09/05/22 0730 None (Room air) 09/05/22 0700 (P) None (Room air) 09/05/22 0655 None (Room air) 09/05/22 0357 None (Room air) Wound Care Instructions Other Instructions Call provider for: Temperature -Temperature greater than 101 degrees F Call provider for: difficulty breathing or chest pain Call provider for: hives Call provider for: persistent dizziness or light-headedness Call provider for: persistent nausea or vomiting Call provider for: redness, tenderness, or signs of infection (pain, swelling, redness, odor or green/yellow discharge around incision site) Call provider for: severe uncontrolled pain Call provider for: headache, visual disturbances, weakness and speech changes Active LDAs (If Blank, None Found): Patient Emergency Contact: Primary Emergency Contact: Arnulfo Gill Immunization Status at Discharge Immunization History Administered Date(s) Administered Influenza, Unspecified 05/01/2021, 07/01/2022 Moderna SARS-CoV-2 Vaccination (12+ YRS) 01/23/2021, 02/20/2021 Joshua Pearson MD Cosigned by Yadi Kulkarni MD at 09/05/2022 4:54 PM SEPTIC TECHNICIAN IC TECHNICIAN IC TECHNICIAN IC TECHNICIAN Associated attestation - Yadi Kulkarni MD - 09/05/2022 4:54 PM SEPTIC TECHNICIAN I personally saw and examined the patient and discussed the case with the resident. I have reviewedthe resident's note and agree with the content and plan as written. MDM moderate Yadi Kulkarni MD documented in this encounter Discharge Instructions * Attachments The following attachments cannot be sent through Care Everywhere. * Fluconazole (By mouth) (Welsh) documented in this encounter Medications at Time [...] tablet (25 mg total) by mouth daily fluconazole (DIFLUCAN) 150 mg tabletIndications:S kin/Soft Tissue Infection Take 1 tablet (150 mg total) by mouth daily for 4 doses 4 tablet 09/06/2022 09/10/19 metroNIDAZOLE (FLAGYL) 500 mg tablet Take 1 tablet (500 mg total) by mouth 3 (three) times a day for 7 days 21 tablet 09/04/2022 09/11/19 23 ciprofloxacin (CIPRO) 500 mg tabletIndications:A bdominal/Pelvic Infection Take 1 tablet (500 mg total) by mouth 2 (two) times a day 14 tablet 09/04/2022 10/30/19 23 dicyclomine (BENTYL) 10 mg capsule Take 2 capsules (20 mg total) by mouth 4 (four) times a day as needed (abdominal pain/cramping) 240 capsule 5 09/24/2021 11/25/19 23 escitalopram (LEXAPRO) 10 mg tabletIndications:A nxiety with Depression Take 10 mg by mouth daily 10/30/19 23 famotidine (PEPCID) 20 mg tablet Take 1 tablet (20 mg total) by mouth daily as needed for indigestion or heartburn 90 tablet 3 01/15/2022 02/11/20 23 lubiprostone (AMITIZA) 24 mcg capsule TAKE [...] 2 doses in 24 hours. 11/13/19 24 traMADoL (ULTRAM) 50 mg tablet Take 1 tablet (50 mg total) by mouth every 6 (six) hours as needed for pain for up to 15 doses 15 tablet 09/04/2022 10/30/19 documented as of this encounter Ordered Prescriptions Prescription Sig Dispense Quantity Refills Last Filled Start Date End Date fluconazole (DIFLUCAN) 150 mg tabletIndications: Skin/Soft Tissue Infection Take 1 tablet (150 mg total) by mouth daily for 4 doses 4 tablet 09/06/2022 09/10/2022 documented in this encounter Discharge Disposition Disposition Code Departure Means Destination Discharge to home or self care documented in this encounter Progress Notes * Queenie Byrnes RN - 09/05/2022 2:24 PM CST DC plan discussed with patient. Goal is to return home-lives with her and he will be her ride home. Indep. Ambulating in hallways. Barrier to dc is resolution of cyclic vomiting. No needs noted at this time. 09/05/22 1423 Discharge Summary Chart reviewed Other (Comment) (spoke with patient.) Does patient have a planned readmission to hospital planned? No Discharge Disposition Private residence Equipment/Provider Needs No Home Needs Identified Discharge Additional Assistance Does the patient need discharge transport arranged? No Post Discharge Care Provider Post Discharge Care Plan Next level of care provider has access to complete EMR IC TECHNICIAN * Katerine Lundy PA - 09/05/2022 10:00 AM CST Gastroenterology Daily Inpatient Progress Note Reason for consult: Cyclic vomiting, colitis Date of visit: 09/05/2022 Subjective HPI: Sarahy Gill is a 52 y.o. female who presented to the ED early this morning with c/o nausea, vomiting, diarrhea, epigastric abdominal pain. Patient was seen in the ED yesterday as well for similar symptoms. CT A/P W contrast performed yesterday noted mild diffuse thickening of the colon c/o mild colitis, diverticulosis, mild diffuse hepatic steatosis. She was D/C home at that time with diagnosis of mild colitis. Of note, patient is well known to our GI office and follows closely with ERUM Alaniz. She reports having a history of cyclical vomiting syndrome and IBS-C/D. Her current symptoms are not new for her; she will intermittently experience flares. Per chart review, patient had been on a regimen of bentyl prn, QID gasX prn, prn zofran, 40mg protonix daily, colace/senna prn, BID amitiza, and miralax prn. At time of exam patient denies any current nausea, vomiting, abdominal pain. No emesis or diarrhea charted since admission. Denies heartburn. Denies dysphagia. Denies melena. WBC elevated at 12.1. Patient is currently on cipro and flagyl for colitis. She is using zofran as needed for the nausea/vomiting; states the IV zofran helps more than PO. She is on a full liquid diet. Appetite fair. Of note, UDS from 08/18/22 detected cannabinoids. Patient had an EGD 12/18/21 which noted erythematous mucosa in antrum likely mild chronic gastritis, mild reflux esophagitis; biopsies unremarkable. Review of Systems Constitutional: Negative for chills, diaphoresis, fatigue, fever, and unexpected weight change. +appetite change, activity change HENT: Negative for congestion, drooling, mouth sores, postnasal drip, rhinorrhea, sore throat, trouble swallowing, and voice change. Respiratory: Negative for cough, choking, chest tightness, wheezing, and stridor. +shortness of breath Cardiovascular: Negative for chest pain, palpitations, and leg swelling. Gastrointestinal: See HPI for full review of this system. No heartburn or reflux. No constipation. No bowel habit changes. No dark, black, or bloody bowel movements. No rectal pain or bleeding. +epigastric abdominal pain, nausea, vomiting, diarrhea Genitourinary: Negative for difficulty urinating, dysuria, frequency, and urgency. Musculoskeletal: Negative for arthralgias and myalgias. Skin: Negative for pallor and rash. Neurological: Negative for dizziness, light-headedness, and headaches. Psychiatric/Behavioral: Negative for decreased concentration, dysphoric mood, and sleep disturbance. The patient is not nervous/anxious. Intake/Output last 3 shifts: No intake/output data recorded. Lab/Radiology/Diagnostic Review: Recent Labs Lab Units 09/04/22 0727 WBC K/cumm 12.1* HEMOGLOBIN g/dL 12.0 HEMATOCRIT % 37.5 PLATELETS K/cumm 455* SODIUM mmol/L 138 POTASSIUM PLASMA mmol/L 3.7 CHLORIDE mmol/L 99 CO2 mmol/L 29 ANIONGAP mmol/L 10 GLUCOSE mg/dL 113 BUN SERUM mg/dL 14 CREATININE mg/dL 0.82 CALCIUM mg/dL 9.9 ALBUMIN g/dL 4.6 BILIRUBIN TOTAL mg/dL 0.5 ALK PHOS Units/L 108 ALT Units/L 19 AST Units/L 27 and Results for orders placed during the hospital encounter of 09/04/22CT Abdomen Pelvis W ContrastNarrativeEXAM DESCRIPTION: CT ABDOMEN PELVIS W CONTRASTREASON FOR STUDY: Abdominal pain, acute, nonlocalizedPelvic pain today, nausea and diarrheaTECHNIQUE: CT scan of the abdomen and pelvis performedwith intravenous andwithout oral contrast using helical scanning technique with dynamicintravenous contrast injection. Reconstructed coronal and sagittal MPR imagesreviewed. All images stored on PACS.Automated exposure control was used as a dose optimization technique for thisexamination.CONTRAST TYPE/DOSE: 75mL of IOVERSOL 350 MG IODINE/ML INTRAVENOUS SYRINGEinjected via intravenousCOMPARISON: 06/10/2022FINDINGS:LOWER CHEST: The heart size is stable. There is no definite evidence ofpericardialeffusion. There is mild bibasilar subsegmental atelectasis, whichis most significant in the lingula.LIVER: There is mild diffuse hepatic steatosis. The hepatic and portalveins are grossly patent. There is a stable nonspecific parenchymalcalcification in the lateral right hepatic dome measuring 0.5 cm, which doesnot require follow-up imaging.GALLBLADDER: Surgically absent.BILE DUCTS: No intrahepatic or extrahepatic ductal dilatation.SPLEEN: The spleen is grossly stable in size and unremarkable.PA NCREAS: The pancreas appears grossly stable without definite of pancreaticductal dilatation, peripancreatic inflammatory changes, or peripancreaticfluid collection.ADRENALS: The bilateral adrenal glands are grossly stable and unremarkable.KIDNEYS/URINARY TRACT: The bilateral kidneys enhance symmetrically. Thereis a 1.3 cm cyst in the upper pole of the right kidney. There are fewadditional too small to characterize hypoattenuating lesions in the bilateralkidneys, and these lesions do not requirefollow-up imaging. There is nodefinite evidence of hydronephrosis or hydroureter. There is mildcircu mferential mucosal thickening of the urinary bladder.GI: There is no definite evidence of bowel obstruction. The appendix isvisualized without definite evidence of pericecal or periappendicealinflammatory changes to suggest appendicitis. There is mild diffuse mucosalthickening of the colon. There are scattered colonic diverticula withoutdefinite evidence of diverticulitis. There is a tiny fat containingperiumbilical hernia. There is no definite evidence of free air or fluid inthe abdomen and pelvis. There is no definite evidence of lymphadenopathy inthe abdomen and pelvis.REPRODUCTIVE: There is no definite CT evidence of a large ovarian or uterinemass.MUSCULOSKELETAL: There is a mild dextroscoliotic curvature of the spine withmild degenerative changes.OTHER: No other abnormality.Impression1. No definite evidence of bowel obstruction.2. Mild diffuse mucosal thickening of the colon, whichis concerning formild colitis of infectious or inflammatory etiology.3. Mild circumferential mucosal thickening of the urinary bladder, which maybe related to underdistention versus cystitis. Clinical correlation withurinary analysis is recommended as clinically indicated.4. Scattered colonic diverticula without definite evidence ofdiverticulitis.5. Mild diffuse hepatic steatosis.6. Normal appendix.REFERENCE: Unless otherwise specified, no follow-up imaging is recommended forincidental renal and adrenal lesions per consensus recommendations based onimaging criteria. Further lab evaluation could be pursued based on clinicalfindings.Management of the Incidental Renal Mass on CT: A White Paperof the ACRIncidental Findings Committee. J Am Kacey Radiol. 2018 Oct;15(2):264- 273.Management of Incidental Adrenal Masses: A White Paper of the ACR IncidentalFindings Committee. J Am Kacey Radiol. 2017 Mar;14(8):6673-2176.THIS IS AN ELECTRONICALLY VERIFIED FINAL REPORT09/04/2022 9:19 AM- Electronically signed by Luis Ricketts D.O.PS: PSD: 09/04/2022 9:19 AMT: 09/04/2022 9:19 AMReport ID:[id number] Location: [id number] Current Medications: Current Facility-Administered Medications: acetaminophen (TYLENOL) tablet 650 mg, 650 mg, oral, Q4H PRN, Juve Sheldon MD, 650 mg at 09/05/22 0828 ciprofloxacin (CIPRO) 400 mg/200 mL in dextrose 5% (premix) 400 mg, 400 mg, intravenous, Q12H Pito CHANCE Alan F., MD, Last Rate: 200 mL/hr at 09/05/22828, 400 mg at 09/05/22828 metroNIDAZOLE (FLAGYL) 500 mg/100 mL in sodium chloride (premix) 500 mg, 500 mg, intravenous, Q8H Pito CHANCE Alan F., MD ondansetron ODT (ZOFRAN-ODT) disintegrating tablet 4 mg, 4 mg, oral, Q6H PRN OR ondansetron (ZOFRAN) injection 4 mg, 4 mg, intravenous, Q6H PRN, Juve Sheldon MD, 4 mg at 09/05/22828 Objective Vital signs in last 24 hours: Temp: [35.5 ??C (95.9 ??F)-36.6 ??C (97.8 ??F)] 36.5 ??C (97.7 ??F) Pulse: [86-99] 99 Resp: [18-20] 20 BP: (109-137)/(56-94) 116/75 Physical Exam Constitutional: General: No acute distress. Appearance: Not ill-appearing. HENT: Head: Normocephalic and atraumatic. Mouth/Throat: Mouth: Mucous membranes are moist. Pharynx: Oropharynx is clear. No posterior oropharyngeal erythema. Eyes: General: No scleral icterus. Neck: Thyroid: No thyroid mass or thyromegaly. Trachea: Trachea normal. Cardiovascular: Rate and Rhythm: Normal rate and regular rhythm. Heart sounds: No murmur heard. Appearance: No edema in legs. Pulmonary: Effort: Pulmonary effort is normal. Breath sounds: Normal breath sounds. Abdominal: General: Bowel sounds are normal. Palpations: Abdomen is soft and non-distended. Tenderness: There is no abdominal tenderness. There is no guarding or rebound. Hernia: No hernia is present. Lymphadenopathy: Cervical: No cervical adenopathy. Skin: General: Skin is warm and dry. Coloration: Skin is not jaundiced or pale. Findings: No bruising or rash. Neurological: Mental Status: Pt is alert and oriented to person, place, and time. Psychiatric: Mood and Affect: Mood normal. Behavior: Behavior normal. Gastroenterology Impression/Plan/Recommendations: Nausea, vomiting Epigastric abdominal pain Reports history of cyclic vomiting syndrome. Flares of these symptoms appear to be typical for this patient. Will treat symptomatically with zofran prn and diet restriction. Symptoms starting to improve. Can advance diet to GI soft if symptoms continue to improve. Diarrhea with CT findings c/o colitis CT A/P W contrast performed yesterday noted mild diffuse thickening of the colon c/o mild colitis; no fat stranding. May avoid using any home laxative regimens at this time. Can continue cipro and flagyl to cover infectious etiologies; treat for a total of 7 days. Will order stool tests for furtherworkup. If tolerating diet advance, advance to GI soft. If diarrhea persists, can add cholestyramine to help bulk the stools. Hepatic steatosis CT noted fatty liver changes. LFTs within normal limits. Will order liver workup. Limit high fructose corn syrup and alcohol. Once symptoms are controlled, patient can follow-up with our office outpatient for continued management. My collaborating physician is Dr. Germania Sorto-Gastroenterology. Voice recognition software [employer] Direct was used dictate and transcribe this document. Draw Tender variances may occur. Despite proofreading, typographical errors may occur. LUCÍA Michelle Cosigned by Germania Sorto MD at 09/06/2022 1:39 PM SEPTIC TECHNICIAN IC TECHNICIAN IC TECHNICIAN IC TECHNICIAN documented in this encounter Nursing Notes * Natividad Baugh RN - 09/05/2022 3:37 PM CST Pt discharged today. Stable, A&O x4. Explained and given discharge instructions with atbedside, verbalized understanding with all questions at this time. Pt belongings received. Chaperoned out per wheelchair to family. IC TECHNICIAN documented in this encounter ED Notes * Juve Sheldon MD - 09/05/2022 6:17 AM CST HPI Chief Complaint Patient presents with Vomiting HPI Patient History: Patient Active Problem List Diagnosis Date Noted Cyclical vomiting 09/05/2022 Gastroesophageal reflux disease with esophagitis without [...] depressed (CMS/HCC) (FORMERLY [facility]) 08/09/2021 Intussusception intestine (CMS/HCC) (FORMER[facility]) 08/09/2021 Hypertension 08/08/2021 Abdominal pain, generalized 08/08/2021 Atrial fibrillation (CMS/HCC) (HCC) 05/15/2020 Essential tremor 10/12/2018 Jerky body movements 10/12/2018 Irritable bowel syndrome with both constipation and diarrhea 02/23/2018 Orthostatic dizziness 09/16/2016 Palpitations 07/29/2016 Migraine headache 07/29/2016 Past Medical History: Diagnosis Date A-fib (CMS/HCC) (FORMERLY [facility]) Anxiety Arthritis Bipolar affect, depressed (CMS/HCC) (HCC) Cyclic vomiting syndrome Depression Headache, tension-type Hypertension Hypotension IBS (irritable bowel syndrome) Migraine Stroke (CMS/HCC) (FORM[facility]) Weight loss Past Surgical History: Procedure Laterality [...] file Review of Systems Review of Systems Physical Exam ED Triage Vitals [09/05/22 0357] Temp Pulse Resp BP SpO2 (!) 35.5 ??C (95.9 ??F) 86 18 137/94 100 % Temp src Heart Rate Source Patient Position BP Location FiO2 (%) -- -- -- -- -- Height Height Method Weight Weight Method -- -- 62.6 kg (138 lb 0.1 oz) -- Physical Exam MDM Medical Decision Making 52-year-old female with history of cyclic vomiting, seen here at this facility frequently for the same, most recently yesterday with full workup showing mild colitis-discharged on Cipro and Flagyl, returns with continued nausea vomiting. Will admit patient for IV antibiotics Amount and/or Complexity of Data Reviewed Discussion of management or test interpretation with external provider(s): Spoke with the hospitalist, agrees on admission for IV antibiotics Risk Decision regarding hospitalization. ED Course as of 09/05/22616 Time: 09/05 547 Comment: Still feeling nauseous , she states every time she turns still feels sick to her stomach. By: Cornelius Monson MD Final diagnoses: Cyclical vomiting Colitis Juve Sheldon MD 09/05/22617 IC TECHNICIAN * Cornelius Monson MD - 09/05/2022 4:30 AM CST HPI Chief Complaint Patient presents with Vomiting 52-year-old with a history of cyclical vomiting syndrome, bipolar disorder, hypertension here with the complaints of nausea and vomiting since last evening. Patient was seen yesterday morning in the ER for the same complaint was diagnosed with mild colitis. However patient denies any diarrhea at this time. She states that she has taken Zofran with no relief. Patient History: Patient Active Problem List Diagnosis [...] depressed (CMS/HCC) (FORM[facility]LY [facility]) 08/09/2021 Intussusception intestine (CMS/HCC) ([facility]) 08/09/2021 Hypertension 08/08/2021 Abdominal pain, generalized 08/08/2021 Atrial fibrillation (CMS/HCC) (HCC) 05/15/2020 Essential tremor 10/12/2018 Jerky body movements 10/12/2018 Irritable bowel syndrome with both constipation and diarrhea 02/23/2018 Orthostatic dizziness 09/16/2016 Palpitations 07/29/2016 Migraine headache 07/29/2016 Past Medical History: Diagnosis Date A-fib (CMS/HCC) (FORM[facility]LY [facility]) Anxiety Arthritis Bipolar affect, depressed (CMS/HCC) (HCC) Cyclic vomiting syndrome Depression Headache, tension-type Hypertension Hypotension IBS (irritable bowel syndrome) Migraine Stroke (CMS/HCC) ([facility]) Weight loss Past Surgical History: Procedure Laterality [...] of Systems Review of Systems Constitutional: Negative. HENT: Negative. Eyes: Negative. Respiratory: Negative. Cardiovascular: Negative. Endocrine: Negative. Genitourinary: Negative. Musculoskeletal: Negative. Neurological: Negative. Hematological: Negative. Physical Exam ED Triage Vitals [09/05/22 0359] Temp Pulse Resp BP SpO2 (!) 35.5 ??C (95.9 ??F) 86 18 137/94 100 % Temp src Heart Rate Source Patient Position BP Location FiO2 (%) -- -- -- -- -- Height Height Method Weight Weight Method -- -- 62.6 kg (138 lb 0.1 oz) -- Physical Exam Vitals and nursing note reviewed. HENT: Head: Normocephalic. Nose: Nose normal. Eyes: Pupils: Pupils are equal, round, and reactive to light. Cardiovascular: Rate and Rhythm: Normal rate and regular rhythm. Heart sounds: Normal heart sounds. Pulmonary: Effort: Pulmonary effort is normal. Breath sounds: Normal breath sounds. Abdominal: Palpations: Abdomen is soft. Musculoskeletal: Cervical back: Normal range of motion. Skin: General: Skin is warm. Neurological: General: No focal deficit present. Mental Status: She is alert. [facility] Medical Decision Making 32-year-old with a history of cyclical vomiting syndrome here with nausea and vomiting since last evening. She was discharged from the ER less than 12 hours ago for the same page P will congressional assistant IV fluids and droperidol Risk Prescription drug management. ED Course as of 09/05/22 0549 Time: 09/05 547 Comment: Still feeling nauseous , she states every time she turns still feels sick to her stomach. By: Cornelius Monson MD Final diagnoses: Cyclical vomiting Cornelius Monson MD 09/05/2249 IC TECHNICIAN * Eagle Gabriel RN - 09/05/2022 3:55 AM CST Patient arrives to the ED with complaints of vomiting. Patient was seen here yesterday and diagnosed with mild colitis. Patient states she just woke up an hour ago and started vomiting again and states her zofran isnt working. Patient is alert and oriented x 4 at time of triage. IC TECHNICIAN documented in this encounter Plan of Treatment Upcoming Encounters Date Type Department Care Team (Latest Contact Info) Description 09/07/2024 8:30 AM SEPTIC TECHNICIAN Hospital Encounter [facility] [address] [place] [phone] Forest Catherine MD [address] [address] 09/07/2024 8:30 AM SEPTIC TECHNICIAN - 09/07/2024 9:00 AM SEPTIC TECHNICIAN Surgery [facility] [address] [place] [phone] Forest Catherine MD [address] [address] EGD w/Endo Flip [facility] Y[facility] placement Scheduled Procedures Name Priority Associated Diagnoses Date/Ti me ESOPHAGOGASTRODUODENOSCOPY Hiatal hernia Gastroesophageal reflux disease, unspecified whether esophagitis present 09/07/2024 8:30 AM SEPTIC TECHNICIAN documented as of this encounter Visit Diagnoses Diagnosis Cyclical vomiting- Primary Persistent vomiting Cyclical vomiting Persistent vomiting Colitis Other and unspecified noninfectious gastroenteritis and colitis Atrial fibrillation (CMS/HCC) (HCC) Atrial fibrillation Bipolar affect, depressed (HCC) Bipolar I disorder, most recent episode (or current) depressed, unspecified Chronic anemia Unspecified anemia Chronic nausea Nausea alone Gastroesophageal reflux disease with esophagitis without hemorrhage Hepatic steatosis Other chronic nonalcoholic liver disease Hypertension Unspecified essential hypertension Irritable bowel syndrome with both constipation and diarrhea Gastritis Unspecified gastritis and gastroduodenitis without mention of hemorrhage Hiatal hernia Diaphragmatic hernia without mention of obstruction or gangrene Gastroesophageal reflux disease, unspecified whether esophagitis present documented in this encounter Admitting Diagnoses Diagnosis Cyclical vomiting Persistent vomiting documented in this encounter Administered Medications Inactive Administered Medications - up to 3 most recent administrations Medication Order MAR Action Action Date Dose Rate Site acetaminophen (TYLENOL) tablet 650 mg 650 mg, oral, Every 4 hours PRN, 1st line for pain, Starting on Thu09/05/22 at 0759, Indications: PainIndications:Pain Given 09/05/2022 8:28 AM SEPTIC TECHNICIAN 650 mg apixaban (ELIQUIS) tablet 5 mg 5 mg, oral, 2 times daily, First dose on Thu09/05/22 at 1400, Nurse to discontinue heparin infusion order and associated bolus at first administration of apixaban using 'order condition met' order source, Indications: atrial fibrillationIndications:atri al fibrillation Given 09/05/2022 2:09 PM SEPTIC TECHNICIAN 5 mg ciprofloxacin (CIPRO) 400 mg/200 mL in dextrose 5% (premix) 400 mg 400 mg, intravenous, at 200 mL/hr, Administer over 60 Minutes, Every 12 hours scheduled, First dose on Thu09/05/22 at 0845, Indications: Abdominal/Pelvic InfectionIndications:Abdomin al/Pelvic Infection New Bag 09/05/2022 8:29 AM SEPTIC TECHNICIAN 400 mg 200 mL/hr droperidoL (INAPSINE) injection 1.25 mg 1.25 mg, intravenous, Administer over 5 Minutes, Once, On Thu09/05/22 at 0425, For 1 dose Given 09/05/2022 4:38 AM SEPTIC TECHNICIAN 1.25 mg flecainide (TAMBOCOR) tablet 100 mg 100 mg, oral, 2 times daily, First dose on Thu09/05/22 at 1400 Given 09/05/2022 2:09 PM SEPTIC TECHNICIAN 100 mg fluconazole (DIFLUCAN) tablet 150 mg 150 mg, oral, Daily, First dose on Thu09/05/22 at 1200, For 5 doses, Indications: Skin/Soft Tissue InfectionIndications:Skin/So ft Tissue Infection Given 09/05/2022 2:10 PM SEPTIC TECHNICIAN 150 mg metoprolol XL (TOPROL-XL) extended release tablet 25 mg 25 mg, oral, Daily, First dose on Thu09/05/22 at 1400, Tablets that are scored may be split, but do not crush, chew, dissolve, open or otherwise manipulate tablet/capsule. Given 09/05/2022 2:08 PM SEPTIC TECHNICIAN 25 mg metroNIDAZOLE (FLAGYL) 500 mg/100 mL in sodium chloride (premix) 500 mg 500 mg, intravenous, at 200 mL/hr, Administer over 30 Minutes, Every 8 hours scheduled, First dose on Thu09/05/22 at 0900, Room temperature only, Indications: Abdominal/Pelvic InfectionIndications:Abdomin al/Pelvic Infection New Bag 09/05/2022 10:30 AM SEPTIC TECHNICIAN 500 mg 200 mL/hr ondansetron (ZOFRAN) injection 4 mg 4 mg, intravenous, Administer over 2 Minutes, Every 6 hours PRN, nausea, vomiting, if not tolerating PO, Starting on Thu09/05/22 at 0759, Indications: Nausea and VomitingIndications:Nausea and Vomiting Given 09/05/2022 8:29 AM SEPTIC TECHNICIAN 4 mg ondansetron ODT (ZOFRAN-ODT) disintegrating tablet 4 mg 4 mg, oral, Every 6 hours PRN, nausea, vomiting, Starting on Thu09/05/22 at 0759, Indications: Nausea and VomitingIndications:Nausea and Vomiting pantoprazole DR (PROTONIX) extended release tablet 40 mg 40 mg, oral, Daily, First dose on Thu09/05/22 at 1400, Do not crush, chew, cut, dissolve, open or otherwise manipulate tablet/capsule. Given 09/05/2022 2:09 PM SEPTIC TECHNICIAN 40 mg sodium chloride 0.9% bolus 1,000 mL 1,000 mL, intravenous, at 1,000 mL/hr, Administer over 1 Hours, Once, On Thu09/05/22 at 0425, For 1 dose New Bag 09/05/2022 4:40 AM SEPTIC TECHNICIAN 1,000 mL 1000 mL/hr sodium chloride 0.9% infusion 125 mL/hr, intravenous, Continuous, Starting on Thu09/05/22 at 0830 New Bag 09/05/2022 8:29 AM SEPTIC TECHNICIAN 125 mL/hr 125 mL/hr documented in this encounter Discontinued Medications Medication Sig Discontinue Reason Start Date End Da te polyethylene glycol (MIRALAX) 17 gram/dose powder Take 1-2 capfuls nightly for constipation management. Therapy completed 09/24/2021 09/05/2022 senna-docusate (PERICOLACE) 8.6-50 mg Take 2 pills nightly for constipation management Therapy completed 09/24/2021 09/05/[address] (CYMBALTA) 60 mg capsule Take 60 mg by mouth daily Therapy completed 08/20/2022 09/05/2022 fluconazole (DIFLUCAN) 150 mg tablet Take 1 pill at onset of yeast infection symptoms. May repeat dose in 72 hours if no resolution of symptoms. 01/30/2022 09/05/2022 melatonin 5 mg tablet Take 1 tablet (5 mg total) by mouth nightly as needed (sleep) Therapy completed 08/18/2022 09/05/2022 hydrOXYzine (ATARAX) 50 mg tablet Take 50 mg by mouth 3 (three) times a day 08/20/2022 09/05/2022 documented as of this encounter Active and Recently Administered Medications Times are shown in SEPTIC TECHNICIAN. Scheduled Medication Order 09/03/2022 09/04/2022 09/05/2022 apixaban (ELIQUIS) tablet 5 mg 5 mg, oral, 2 times daily, First dose on Thu09/05/22 at 1400, Nurse to discontinue heparin infusion order and associated bolus at first administration of apixaban using 'order condition met' order source, Indications: atrial fibrillation 1409 (Given - Provid er: Natividad Baugh RN) ciprofloxacin (CIPRO) 400 mg/200 mL in dextrose 5% (premix) 400 mg 400 mg, intravenous, at 200 mL/hr, Administer over 60 Minutes, Every 12 hours scheduled, First dose on Thu09/05/22 at 0845, Indications: Abdominal/Pelvic Infection 0829 (New Bag - Prov ider: Natividad Baugh RN) citalopram (CeleXA) tablet 10 mg 10 mg, oral, Daily, First dose on Thu09/05/22 at 1400, Indications: Anxiety with Depression 1407 (Not Given - Pr ovider: Natividad Baugh RN - Reason: Patient/family refused) droperidoL (INAPSINE) injection 1.25 mg (COMPLETED) 1.25 mg, intravenous, Administer over 5 Minutes, Once, On Thu09/05/22 at 0425, For 1 dose 0438 (Given - Provid er: Jessica Washington RN) flecainide (TAMBOCOR) tablet 100 mg 100 mg, oral, 2 times daily, First dose on Thu09/05/22 at 1400 1409 (Given - Provid er: Natividad Baugh RN) fluconazole (DIFLUCAN) tablet 150 mg 150 mg, oral, Daily, First dose on Thu09/05/22 at 1200, For 5 doses, Indications: Skin/Soft Tissue Infection 1410 (Given - Provid er: Natividad Baugh RN) lubiprostone (AMITIZA) capsule 24 mcg 24 mcg, oral, 2 times daily with meals (bkfst, dinner), First dose on Thu09/05/22 at 1800, Do not crush, chew, cut, dissolve, open or otherwise manipulate tablet/capsule. metoprolol XL (TOPROL-XL) extended release tablet 25 mg 25 mg, oral, Daily, First dose on Thu09/05/22 at 1400, Tablets that are scored may be split, but do not crush, chew, dissolve, open or otherwise manipulate tablet/capsule. 1408 (Given - Provid er: Natividad Baugh RN) metroNIDAZOLE (FLAGYL) 500 mg/100 mL in sodium chloride (premix) 500 mg 500 mg, intravenous, at 200 mL/hr, Administer over 30 Minutes, Every 8 hours scheduled, First dose on Thu09/05/22 at 0900, Room temperature only, Indications: Abdominal/Pelvic Infection 1030 (New Bag - Prov ider: Natividad Baugh RN)1400 (Due) nortriptyline (PAMELOR) capsule 25 mg 25 mg, oral, Nightly, First dose on Thu09/05/[address] (PROTONIX) extended release tablet 40 mg 40 mg, oral, Daily, First dose on Thu09/05/22 at 1400, Do not crush, chew, cut, dissolve, open or otherwise manipulate tablet/capsule. 1409 (Given - Provid er: Natividad Baugh RN) sodium chloride 0.9% bolus 1,000 mL (COMPLETED) 1,000 mL, intravenous, at 1,000 mL/hr, Administer over 1 Hours, Once, On Thu09/05/22 at 0425, For 1 dose 0440 (New Bag - Prov ider: Jessica Washington RN)0700 (Stopped - Provider: Jessica Bey RN) Continuous Medication Order 09/03/2022 09/04/2022 09/05/2022 sodium chloride 0.9% infusion (CANCELED) 125 mL/hr, intravenous, Continuous, Starting on Thu09/05/22 at 0830 0829 (New Bag - Prov ider: Natividad Baugh RN)0957 (Stopped - Provider: Natividad Baugh RN) PRN Medication Order 09/03/2022 09/04/2022 09/05/2022 acetaminophen (TYLENOL) tablet 650 mg 650 mg, oral, Every 4 hours PRN, 1st line for pain, Starting on Thu09/05/22 at 0759, Indications: Pain 0828 (Given - Provid er: Natividad Baugh RN) dicyclomine (BENTYL) capsule 20 mg 20 mg, oral, 4 times daily PRN, abdominal pain/cramping, Starting on Thu09/05/22 at 1257 famotidine (PEPCID) tablet 20 mg 20 mg, oral, Daily PRN, indigestion, heartburn, Starting on Thu09/05/22 at 1258 ondansetron (ZOFRAN) injection 4 mg(Linked Group 1) 4 mg, intravenous, Administer over 2 Minutes, Every 6 hours PRN, nausea, vomiting, if not tolerating PO, Starting on Thu09/05/22 at 0759, Indications: Nausea and Vomiting 0829 (Given - Provid er: Natividad Baugh RN) ondansetron ODT (ZOFRAN-ODT) disintegrating tablet 4 mg(Linked Group 1) 4 mg, oral, Every 6 hours PRN, nausea, vomiting, Starting on Thu09/05/22 at 0759, Indications: Nausea and Vomiting 0829 (See Alternativ e - Provider: Natividad Baugh RN) SUMAtriptan (IMITREX) tablet 50 mg 50 mg, oral, Once as needed, migraine, Starting on Thu09/05/22 at 1310, May repeat dose once in 2 hours if unresolved. Do not exceed 200 mg in 24 hours., Indications: Migraine Linked Groups Order Group 1: ondansetron ODT (ZOFRAN-ODT) disintegrating tablet 4 mgJump to med 4 mg, oral, Every 6 hours PRN, nausea, vomiting, Starting on Thu09/05/22 at 0759, Indications: Nausea and Vomiting Or ondansetron (ZOFRAN) injection 4 mgJump to med 4 mg, intravenous, Administer over 2 Minutes, Every 6 hours PRN, nausea, vomiting, if not tolerating PO, Starting on Thu09/05/22 at 0759, Indications: Nausea and Vomiting documented in this encounter Orders Medications Ordered That Rg ht Not Have Been Administered Count Last Ordered Date First Ordered Date citalopram (CeleXA) tablet 10 mg 1 09/05/19 23 dicyclomine (BENTYL) capsule 20 mg 1 2022 famotidine (PEPCID) tablet 20 mg 1 09/05/19 23 lubiprostone (AMITIZA) capsule 24 mcg 1 01/2023 nortriptyline (PAMELOR) capsule 25 mg 1 01/2023 ondansetron ODT (ZOFRAN-ODT) disintegrating tablet 4 mg 1 09/05/2022 SUMAtriptan (IMITREX) tablet 50 mg 1 2022 Diet Count Last Ordered Date First Orde red Date ADULT DISCHARGE DIET 1 09/05/2022 Nursing Count Last Ordered Date First Orde red Date DISCHARGE ACTIVITY 1 09/05/2022 DISCHARGE CALL PROVIDER 8 09/05/2022 TELEMETRY MONITORING 1 09/05/2022 Admission Count Last Ordered Date First Orde red Date INITIATE OBSERVATION SERVICES 1 09/05/2022 Discharge Count Last Ordered Date First Orde red Date DISCHARGE PATIENT 1 09/05/2022 CORE MEASURES Count Last Ordered Date First Ord ered Date REASON FOR NO VTE PROPHYLAXIS AT ADMISSION 1 09/05/2022 documented in this encounter Care Teams Director Of Conservation Relationship Specialty Start Date End Date Parmjit Dai MD PCP - General 12/31/20 Mere Landa NP Nurse Practitioner 02/07/20 Tico Burton MD Surgeon General Surgery 08/09/21 documented as of this encounter
--- OUTSIDE RECORDS SUMMARY | 2024-08-16 04:34 | XMS_ITS | Encounter Summary ---
Author Organization [facility] Address [address] [place] [address] Care Team Providers Care Printed Circuit Boards Solder Leveler Name Role Phone Mere Landa NP Unavailable [phone] Parmjit Dai MD Primary Care Provider [phone] Tico Burton MD Unavailable [phone] Encounter Details Date Type Department Care Team (Late st Contact Info) Description 12/18/2021 3:38 PM CDT Anesthesia Event [address] [address] Travis Shahid MD [address] [place] [address] [place] [address] [facility] [address] [place], [place] [id number] Anesthesia Record Procedure Summary Procedure Name Responsible Anesthesiologist Anesthesia Start Time Anesthesia Stop Time ESOPHAGOGASTRODUODENOSCOPY BIOPSY Travis Shahid MD 12/18/21 1538 12/18/21 1545 Events Date Time Event Comment 12/18/2021 1425 1533 In Room 1538 An Start 1538 An Start Data 1538 Start Supplemental O2 1538 Patient Positioned Laterally 1539 An Induction The patient was reevaluated immediately before moderate or deep sedation use and before anesthesia induction. 1540 Proc Start 1541 Anesthesia Ready 1543 Proc Fin 1545 Handoff to RN I completed my handoff [...] disposition at the time of handoff: PACU 1545 An Stop 1546 Release from care 1548 Out of Room Meds Name Total lidocaine (cardiac) syringe 2 % 60 mg propofol 100 mg sodium chloride 0.9% infusion 400 mL * Agents Name O2 * Blood No blood administrations on file. Lines, Drains, and Airways Type Details Placement Removal Peripheral IV Placement Date: 11/29 05/22; Placement Time: 2112; Catheter Size: 20 G; Orientation: Right; Location: Antecubital; Site Prep: Alcohol; Inserted by: timmy; Insertion Attempts: 1; Patient Tolerance: Tolerated well; Removal Date: 12/19/21; Removal Time: 152; Removal Reason: Occluded 12/17/212112 by Marce Doty RN 12/19/211519 by Jessica Delarosa documented in this encounter Social History Tobacco [...] on file Legal Sex Female 10:06 AM UR COORDINATOR Gender Identity Female 06/17/2024 7:02 AM CDT Sexual Orientation Not on file documented as of this encounter OR Notes * Anesthesia Postprocedure Evaluation - Travis Shahid MD - 12/18/2021 4:00 PM CDT Patient: Sarahy Gill Procedure Summary Date: 12/18/21 Room / Location: [facility] ENDOSCOPY ROOM 1 / [facility]OSCOPY Anesthesia Start: 1538 Anesthesia Stop: 1545 Procedure: ESOPHAGOGASTRODUODENOSCOPY BIOPSY (N/A ) Diagnosis: Nausea and vomiting, unspecified vomiting type (Nausea and vomiting, unspecified vomiting type [R11.2]) Providers: Germania Sorto MD Responsible Provider: Travis Shahid MD Anesthesia Type: general/TIVA ASA Status: 3 Anesthesia Type: general/TIVA Last vitals BP 101/61 (BP Location: Right arm) Pulse 61 Temp 37.1 ??C (98.7 ??F) (Temporal) Resp 16 SpO2 98% Anesthesia Post Evaluation Patient location during evaluation: PACU Patient participation: complete - patient participated Level of consciousness: fully awake Pain management: adequate Airway patency: adequate Evidence of recall: no Cardiovascular status: acceptable Respiratory status: acceptable Hydration status: acceptable Pt is: normothermic Nausea/Vomiting status: none No complications documented. * Anesthesia Preprocedure Evaluation - Prasanna Shaw MD - 12/18/2021 9:50 AM CDT Images from the original note were not included. Anesthesia Evaluation Sarahy Gill is a 51 y.o. female Procedure(s): ESOPHAGOGASTRODUODENOSCOPY Pre-Op Diagnosis Codes: * Nausea and vomiting, unspecified vomiting type [R11.2] HISTORY Past Medical History Information obtained from: chart. Neurological + TIA + Psychiatric history - bipolar and anxiety Cardiovascular + Hypertension + Atrial fibrillation/flutter - Hepatic / Heme + Liver disease - ENCISO. Gastrointestinal + GERD - on daily therapy. Comments: IBS Musculoskeletal/Pain + Headaches - migraine headaches. Review of Systems + nausea/vomiting + abdominal pain Patient Active Problem List Diagnosis ??? Irritable bowel syndrome with diarrhea ??? Essential tremor ??? Jerky body [...] colonoscopy with polypectomy ??? Nausea and vomiting Past Medical History: Diagnosis Date ??? Anxiety ??? Arthritis ??? Bipolar affect, depressed (CMS/HCC) (HCC) ??? Cyclic vomiting syndrome ??? Depression ??? Headache, tension-type ??? Hypertension ??? Migraine ??? Stroke (CMS/HCC) (HCC) ??? Weight loss Past Surgical History: Procedure Laterality Date ??? ABDOMINAL SURGERY 2012 hiatel hernia repair ??? ARTHROSCOPIC SURGERY Left 1984,1994,2001 knee ??? SECTION 1992 ??? CHOLECYSTECTOMY ??? ENDOMETRIAL ABLATION ??? HERNIA REPAIR ??? TUBAL LIGATION OB History No obstetric history on file. Allergies Allergen Reactions ??? Compazine [Prochlorperazine] Other (See comments) made me feel weird, odd also agitation ??? Phenergan [Promethazine] Agitation ??? Reglan [Metoclopramide] Other (See comments) Had TIA after trying. ??? Zithromax [Azithromycin] Stomach upset Taking? Last Dose Start Date End Date Provider apixaban (ELIQUIS) 5 mg tablet -- -- Rosanne Perez MD atorvastatin (LIPITOR) 40 mg tablet () 08/13/21 10/12/21 Letha Rose MD Take 1 tablet (40 mg total) by mouth daily clonazePAM (KlonoPIN) 0.5 mg tablet 09/12/21 -- Rosanne Perez MD dicyclomine (BENTYL) 10 mg capsule 09/24/21 -- Richard Gracia NP Take 2 capsules (20 mg total) by mouth 4 (four) times a day as needed (abdominal pain/cramping) escitalopram (LEXAPRO) 10 mg tablet -- -- Rosanne Perez MD flecainide (TAMBOCOR) 50 mg tablet -- -- Rosanne Perez MD hydrOXYzine (ATARAX) 25 mg tablet 08/14/21 -- Rosanne Perez MD lubiprostone (AMITIZA) 24 mcg capsule 12/16/21 01/15/22 Richard Gracia NP Take 1 capsule (24 mcg total) by mouth 2 (two) times a day with meals metoprolol XL (TOPROL-XL) 25 mg extended release tablet -- -- Rosanne Perez MD ondansetron (ZOFRAN) 4 mg tablet 09/24/21 -- Richard Gracia NP Take 1 tablet (4 mg total) by mouth every 6 (six) hours pantoprazole DR (PROTONIX) 40 mg EC tablet 09/24/21 -- Richard Gracia NP Take 1 tablet (40 mg total) by mouth daily polyethylene glycol (MIRALAX) 17 gram/dose powder 09/24/21 -- Richard Gracia NP Take 1-2 capfuls nightly for constipation management. senna-docusate (PERICOLACE) 8.6-50 mg 09/24/21 -- Richard Gracia NP Take 2 pills nightly for constipation management SUMAtriptan (IMITREX) 50 mg tablet -- -- Rosanne Perez MD venlafaxine XR (EFFEXOR-XR) 37.5 mg 24 hr capsule 12/12/21 -- Rosanne Perez MD Current Facility-Administered Medications: ??? acetaminophen (TYLENOL) tablet 650 mg, 650 mg, oral, Q4H PRN ??? dicyclomine (BENTYL) capsule 20 mg, 20 mg, oral, Q8H PRN ??? haloperidol (HALDOL) injection 2 mg, 2 mg, intramuscular, Q6H PRN ??? loperamide (IMODIUM) capsule 2 mg, 2 mg, oral, TID PRN, 2 mg at 12/18/21 0714 ??? ondansetron ODT (ZOFRAN-ODT) disintegrating tablet 4 mg, 4 mg, oral, Q6H PRN OR ondansetron(ZOFRAN) injection 4 mg, 4 mg, intravenous, Q6H PRN, 4 mg at 12/18/21 0714 ??? polyethylene glycol (MIRALAX) packet 17 g, 17 g, oral, Daily PRN Current Outpatient Medications: ??? apixaban (ELIQUIS) 5 mg tablet ??? atorvastatin (LIPITOR) 40 mg tablet ??? clonazePAM (KlonoPIN) 0.5 mg tablet ??? dicyclomine (BENTYL) 10 mg capsule ??? escitalopram (LEXAPRO) 10 mg tablet ??? flecainide (TAMBOCOR) 50 mg tablet ??? hydrOXYzine (ATARAX) 25 mg tablet ??? lubiprostone (AMITIZA) 24 mcg capsule ??? metoprolol XL (TOPROL-XL) 25 mg extended release tablet ??? ondansetron (ZOFRAN) 4 mg tablet ??? pantoprazole DR (PROTONIX) 40 mg EC tablet ??? polyethylene glycol (MIRALAX) 17 gram/dose powder ??? senna-docusate (PERICOLACE) 8.6-50 mg ??? SUMAtriptan (IMITREX) 50 mg tablet ??? venlafaxine XR (EFFEXOR-XR) 37.5 mg 24 hr capsule Social History Tobacco Use Smoking Status Former Smoker ??? Start date: 1983 ??? Quit date: 1999 ??? Years since quittin.3 Smokeless Tobacco Never Used Tobacco Comment off and on Substance and Sexual Activity Alcohol Use No Comment: on occasion Substance and Sexual Activity Drug Use Yes ??? Types: Marijuana Comment: occasionally Family History Problem Relation Age of Onset ??? Esophageal cancer Maternal Grandmother ??? Heart disease Maternal Grandmother ??? Stroke Maternal Grandmother ??? Hypertension Maternal Grandmother ??? Migraines Mother Vitals: 12/18/21 0639 12/18/21 0700 12/18/21 0800 BP: 145/96 96/61 Pulse: 66 78 61 Resp: Temp: 36 ??C (96.8 ??F) SpO2: 100% 97% 95% PT: No results found for requested labs within last 720 hours. INR: No results found for requested labs within last 720 hours. APTT: No results found for requested labs within last 720 hours. Hgb A1C: No results found for requested labs within last 720 hours. CBC RBC: 12/17/2021: 4.38 M/cumm RDW: No results found for requested labs within last 720 hours. MCHC: 12/17/2021: 32.3 g/dL MCH: 12/17/2021: 26.7 pg (L) MCV: 12/17/2021: 82.6 fL Hct: 12/17/2021: 36.2 % Hgb: 12/17/2021: 11.7 g/dL (L) WBC: 12/17/2021: 14.3 K/cumm (H) MPV: 12/17/2021: 10.6 fL Platelets: 12/17/2021: 320 K/cumm RDW CV: 12/17/2021: 15.5 % (H) RDW Sd: 12/17/2021: 46.9 fL BMP Glucose: 12/17/2021: 101 mg/dL Calcium: 12/17/2021: 9.7 mg/dL Sodium: 12/17/2021: 140 mmol/L Potassium: 12/17/2021: 4.0 mmol/L CO2: 12/17/2021: 25 mmol/L Chloride: 12/17/2021: 103 mmol/L BUN: 12/17/2021: 9 mg/dL Creatinine: 12/17/2021: 0.70 mg/dL TTE 08/11/21 Conclusions: Normal left ventricular systolic function with no focal wall motion abnormalities. Normal left ventricular size. Left ventricular wall thickness upper limits of normal. Normal left ventricular diastolic function. Ejection fraction is visually estimated at 60-70 %. The atrial septum is not well visualized. Saline contrast study performed without evidence of right to left shunt within limitations of poor image quality. EKG 08/16/21 SINUS RHYTHM NONSPECIFIC T-WAVE ABNORMALITY CXR 08/14/21 NAD DOS Physical Exam Medical history, medications, and allergies reviewed. Attestation: This PAT evaluation 12/18/2021. Airway Exam: Mallampati: II Cervical ROM: FROM TM distance: >4 Cardiovascular Exam: Rate: regular Rhythm: regular Pulmonary Exam: LCTA, bilat Dental Exam: Upper dentures and lower dentures Current state: Patient's current state is cooperative. Anesthesia Plan ASA 3 Planned anesthesia: General/TIVA Induction: Induction: intravenous. Informed Consent: Discussed plan with TRANSITIONS MANAGER RN. Anesthesia plan and risks discussed with patient. [...] (Latest Contact Info) Description 09/07/2024 8:30 AM UR COORDINATOR Hospital Encounter [facility] [address] [place] [phone] Forest Catherine MD [address] [address] 09/07/2024 8:30 AM UR COORDINATOR - 09/07/2024 9:00 AM UR COORDINATOR Surgery [facility] [address] [place] [phone] Forest Catherine MD [address] [address] EGD w/Endo Flip & YI placement Scheduled Procedures Name Priority Associated Diagnoses Date/Ti me ESOPHAGOGASTRODUODENOSCOPY Hiatal hernia Gastroesophageal reflux disease, unspecified whether esophagitis present 09/07/2024 8:30 AM UR COORDINATOR documented as of this encounter Visit Diagnoses Not on filedocumented in this encounter Administered Medications Inactive Administered Medications - up to 3 most recent administrations Medication Order MAR Action Action Date Dose Rate Site lidocaine (XYLOCAINE) 20 mg/mL (2 %) preservative free injection intravenous, As needed, Starting on Thu12/18/21 at 1539, Anesthesia Intra-op Given 12/18/2021 3:39 PM CDT 60 mg propofoL (DIPRIVAN) 10 mg/mL IV intravenous, As needed, Starting on Thu12/18/21 at 1539, Anesthesia Intra-op Given 12/18/2021 3:41 PM CDT 50 mg Given 12/18/2021 3:39 PM CDT 50 mg sodium chloride 0.9% infusion 125 mL/hr, intravenous, Continuous, Starting on Thu12/18/21 at 1500, Recovery (GI) New Bag 12/18/2021 3:38 PM CDT 100 mL/hr documented in this encounter Care Teams Printed Circuit Boards Solder Leveler Relationship Specialty Start Date End Date Parmjit Dai MD PCP - General 12/31/20 Mere Landa NP Nurse Practitioner 02/07/20 Tico uBrton MD Surgeon General Surgery 08/09/21 documented as of this encounter
--- OUTSIDE RECORDS SUMMARY | 2024-08-16 04:34 | XMS_ITS | Encounter Summary ---
Author Organization [facility] Address [address] [place] [address] Care Team Providers Care Thread Separator Name Role Phone Mere Landa NP Unavailable [phone] Parmjit Dai MD Primary Care Provider [phone] Tico Burton MD Unavailable [phone] Encounter Details Date Type Department Care Team (Latest Contact Info) Description 08/17/2022 8:11 PM IT CONSULTING MANAGER - 08/17/2022 11:41 PM IT CONSULTING MANAGER Hospital Encounter [facility] Emergency, Room R Discharge Disposition: Discharge to home or self [...] on file Legal Sex Female 10:06 AM IT CONSULTING MANAGER Gender Identity Female 06/17/2024 7:02 AM [...] (Latest Contact Info) Description 09/07/2024 8:30 AM IT CONSULTING MANAGER Hospital Encounter [facility] [address] [place] [phone] Forest Catherine MD [address] [place] [address] 09/07/2024 8:30 AM IT CONSULTING MANAGER - 09/07/2024 9:00 AM IT CONSULTING MANAGER Surgery [facility] [address] [place] [phone] Forest Catherine MD [address] [place] [address] EGD w/Endo Flip & YI placement Scheduled Procedures Name Priority Associated Diagnoses Date/Ti al ESOPHAGOGASTRODUODENOSCOPY Hiatal hernia Gastroesophageal reflux disease, unspecified whether esophagitis present 09/07/2024 8:30 AM IT CONSULTING MANAGER documented as of this encounter Visit Diagnoses Not on filedocumented in this encounter Care Teams Thread Separator Relationship Specialty Start Date End Date Parmjit Dai MD PCP - General 12/31/20 Mere Landa NP Nurse Practitioner 02/07/20 Tico Burton MD Surgeon General Surgery 08/09/21 documented as of this encounter
--- OUTSIDE RECORDS SUMMARY | 2024-08-16 04:34 | XMS_ITS | Encounter Summary ---
Author Organization [facility] Healthcare Address [address] [place] [address] Care Team Providers Care Moccasin Sewer Name Role Phone Mere Landa NP Unavailable [phone] Parmjit Ewing MD Primary Care Provider [phone] Tico Burton MD Unavailable [phone] Reason for Visit * Reason Comments Abdominal Pain Vomiting Nausea Encounter Details Date Type Department Care Team (Latest Contact Info) Description 12/17/2021 10:18 PM CDT - 12/20/2021 12:10 PM CDT Hospital Encounter 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 Gender Identity Female 06/17/2024 7:02 AM CDT Sexual Orientation Not on file documented as of this encounter Last Filed Vital Signs Vital Sign Reading Time Taken Comments Blood Pressure 126/65 12/20/2021 7:43 AM CDT Pulse 69 12/20/2021 7:43 AM CDT Temperature 36.1 ??C (97 ??F) 12/20/2021 7:43 AM CDT Respiratory Rate 16 12/20/2021 7:43 AM CDT Oxygen Saturation 100% 12/20/2021 7:43 AM CDT Inhaled Oxygen Concentration - - Weight 64 kg (141 lb) 12/18/2021 1:17 PM CDT Height 162.6 cm (5' 4 ) 12/18/2021 1:17 PM CDT Body Mass Index 24.2 12/18/2021 1:17 PM CDT documented in this encounter Discharge Diagnoses Diagnosis Cyclical vomiting syndrome unrelated to migraine - CYCLICAL VOMITING SYNDROME UNRELATED TO MIGRAINE Gastro-esophageal reflux disease with esophagitis, without bleeding - GASTRO-ESOPHAGEAL REFLUX DISEASE WITH ESOPHAGITIS, WITHOUT BLEEDING Unspecified chronic gastritis without bleeding - UNSPECIFIED CHRONIC GASTRITIS WITHOUT BLEEDING Mixed irritable bowel syndrome - MIXED IRRITABLE BOWEL SYNDROME Generalized abdominal pain - GENERALIZED ABDOMINAL PAIN Abdominal pain, generalized Elevated white blood cell count, unspecified - ELEVATED WHITE BLOOD CELL COUNT, UNSPECIFIED Cannabis use, unspecified, uncomplicated - CANNABIS USE, UNSPECIFIED, UNCOMPLICATED Essential (primary) hypertension - ESSENTIAL (PRIMARY) HYPERTENSION Unspecified essential hypertension Contact with and (suspected) exposure to covid-19 - CONTACT WITH AND (SUSPECTED) EXPOSURE TO COVID-19 Unspecified atrial fibrillation (HCC) - UNSPECIFIED ATRIAL FIBRILLATION Other bipolar disorder (HCC) - OTHER BIPOLAR DISORDER Anemia, unspecified - ANEMIA, UNSPECIFIED Migraine, unspecified, not intractable, without status migrainosus - MIGRAINE, UNSPECIFIED, NOT INTRACTABLE, WITHOUT STATUS MIGRAINOSUS Personal history of transient ischemic attack (TIA), and cerebral infarction without residual deficits - PERSONAL HISTORY OF TRANSIENT ISCHEMIC ATTACK (TIA), AND CEREBRAL INFARCTION WITHOUT RESIDUAL DEFICI Acquired absence of other specified parts of digestive tract - ACQUIRED ABSENCE OF OTHER SPECIFIED PARTS OF DIGESTIVE TRACT Tubal ligation status - TUBAL LIGATION STATUS snf (current) use of anticoagulants - 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) USE OF ANTICOAGULANTS Long-term (current) use of anticoagulants 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 - OTHER 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) DRUG THERAPY Allergy status to other antibiotic agents - ALLERGY STATUS TO OTHER ANTIBIOTIC AGENTS Allergy status to narcotic agent - ALLERGY STATUS TO NARCOTIC AGENT Allergy status to other drugs, medicaments and biological substances - ALLERGY STATUS TO OTHER DRUGS, MEDICAMENTS AND BIOLOGICAL SUBSTANCES Personal history of nicotine dependence - PERSONAL HISTORY OF NICOTINE DEPENDENCE Family history of stroke - FAMILY HISTORY OF STROKE Family history of stroke (cerebrovascular) Family history of ischemic heart disease and other diseases of the circulatory system - FAMILY HISTORY OF ISCHEMIC HEART DISEASE AND OTHER DISEASES OF THE CIRCULATORY SYSTEM Family history of malignant neoplasm of digestive organs - FAMILY HISTORY OF MALIGNANT NEOPLASM OF DIGESTIVE ORGANS documented in this encounter Discharge Summaries * Joshua Pearson MD - 12/20/2021 12:10 PM CDT Inpatient Discharge Summary Patient Name - Sarahy Mays Patient Age - 51 yrs Patient - [id number] [facility] - [id number] Document Creation Date: 12/20/2021 Admitting Provider, MD: Cheyenne Benavides MD Discharge Provider, : Naz Enriquez MD Primary Care Physician at Discharge: Parmjit Eiwng MD [phone] Admission Date: 12/17/2021 Discharge Date/time: 12/20/2021 Admission Location: [facility] LOS - LOS: 2 days DETAILS OF HOSPITAL STAY Hospital Problems/Diagnoses Active Problems: Cyclic vomiting syndrome Irritable bowel syndrome with both constipation and diarrhea Hypertension Atrial fibrillation (CMS/HCC) (HCC) Migraine headache Abdominal pain, generalized Bipolar affect, depressed (CMS/HCC) (HCC) Marijuana use Reason for Hospitalization: CC: nausea and vomiting Hospital Course: SUBJECTIVE Sarahy Mays is a 51 y.o. female with a PMH of irritable bowel syndrome, cyclic vomiting, chronic marijuana use presented to the emergency department with complaints of decreased appetite, weight loss, uncontrollable nausea and vomiting. ?? HPI: Onset of symptoms was about 2 weeks ago when patient noted decrease in appetite. Reports only eating 1 meal a day during this time with weight loss. However during GI office visit patient had noted to gain 2 lb. Reports seeing GI yesterday who prescribed her lubiprostone 24 mcg b.i.d. with breakfast and dinner. She reports not starting the medication due to sudden onset of abdominal pain with bowel urgency with no relief or bowel movement. Patient reports associated diaphoresis and feelinglightheaded like she was going to pass out. Pain was rated 8/10, radiated to her left lower quadrant. Was described as stabbing with no clear aggravating factors. Reports that felt similar to when she had intussusception so she went to the emergency department. Reports multiple episodes of nausea with vomiting unable to tell how many times. Did not take her temperature, reports no bowel movement in the last 2 days. Does have a history of IBD and fluctuates between diarrhea and constipation. At this time she denies any headache, lightheadedness, difficulty swelling, cough, chills, fever, nightsweats, chest pain, palpitations, shortness of breath changes in urination frequency/dysuria. No vaginal symptoms as patient has history of uterine ablation and is postmenopausal. ?? ED Course: While in the emergency department significant labs UDS positive for cannabinoids, leukocytosis with white blood cells at 14.3. Mild anemia with hemoglobin 11.7. CMP, kidney function, lactate all reassuring. CT showed normal bowel structures but did have noted nodules in the gluteal folds, with mild bladder wall thickening. UA unremarkable with conditions not met for reflex. Upper respiratory panel including COVID unremarkable. Patient was given Zofran, Haldol, Phenergan rectal with little relief. Continued to have nausea and vomiting and was admitted for further management. Active Problems: Cyclic vomiting syndrome Irritable bowel syndrome with both constipation and diarrhea Hypertension Atrial fibrillation (CMS/HCC) ([facility]) Migraine headache Abdominal pain, generalized Bipolar affect, depressed (CMS/HCC) ([facility]) Marijuana use Resolved Problems: No resolved hospital problems. Cyclic vomiting syndrome Assessment & Plan Patient has history of cyclic vomiting syndrome, and chronic marijuana use. Unclear as to what could be the cause as she does report recent marijuana use. Patient reports allergy to Compazine, Phenergan, Reglan. Previously tolerated as home medications and received in hospital. Unclear as if these are real allergies. EGD Unremarkable. Patient started on nortriptyline and reports she felt much better this morning. - UDS screen positive for cannabinoids: Have advised to stop - Nortriptyline started per GI - Luibiprostone started by GI as outpatient prior to admission - Protonix - Diet progression as tolerated - GI on consult appreciate recommendations Marijuana use Assessment & Plan Patient admits to daily marijuana use. Possibly contributing to cyclic vomiting. Have advised pt tostop smoking. - UDS: Positive for cannabinoid Bipolar affect, depressed (CMS/[facility]) ([facility]) Assessment & Plan Patient has history of [...] cyclic vomiting, will also help with agitation/anxiety Abdominal pain, generalized Assessment & Plan Patient reports generalized abdominal pain with multiple admissions for intussusception, cyclic vomiting. - CT abdomen and pelvis: Mild urinary bladder wall thickening, stomach and small bowel are normal in course and caliber without evidence of obstruction,: Normal, pending ox normal, tiny fat containing periumbilical hernia is noted. - UA unremarkable with conditions not met for culture - continue home meds - GI on consult will follow up with them as op Migraine headache Assessment & Plan OnTopamax Atrial fibrillation ([facility]) ([facility]) Assessment & Plan Patient has history of AFib. Currently normal sinus rhythm. She has had some asymptomatic episodes of bradycardia into the 40's. She may benefit from dose changes in her metoprolol as op. - Anticoagulation: Eliquis 5 mg b.i.d. - Rate control: Metoprolol XL 25 mg q.day, flecainide 50 mg b.i.d. - Pt on telemetry at this time Hypertension Assessment & Plan Have reviewed 24 hour blood pressures and stable at this time. BP: (125-129)/(64-69) 126/65 - will continue home blood pressure medications metoprolol XL 25 mg q.day Irritable bowel syndrome with both constipation and diarrhea Assessment & Plan She is currently denying any diarrhea but reports constipation. Patient states she was recently seen by GI who started lubiprostone 24 b.i.d.. She has not started this medication. - Started home lubiprostone, Miralax and Pericolace - continue Bentyl - GI on consult Discharge Details Physical Exam at Discharge: Discharge Condition: good Pulse: 69 Resp: 16 BP: 126/65 Temp: 36.1 ??C (97 ??F) Weight: 64 kg (141 lb) Pertinent Exam Findings at Discharge: Physical Exam Vitals and nursing note reviewed. Constitutional: General: She is not in acute distress. Appearance: Normal appearance. She is not ill-appearing, toxic-appearing or diaphoretic. HENT: Head: Normocephalic and atraumatic. Right Ear: External ear normal. Left Ear: External ear normal. Nose: Nose normal. Mouth/Throat: Mouth: Mucous membranes are moist. Pharynx: Oropharynx is clear. Eyes: General: No scleral icterus. Extraocular Movements: Extraocular movements intact. Conjunctiva/sclera: Conjunctivae normal. Pupils: Pupils are equal, round, and reactive to light. Cardiovascular: Rate and Rhythm: Normal rate and regular rhythm. Pulses: Normal pulses. Heart sounds: Normal heart sounds. No murmur heard. No friction rub. No gallop. Pulmonary: Effort: Pulmonary effort is normal. No respiratory distress. Breath sounds: Normal breath sounds. No wheezing or rhonchi. Chest: Chest wall: No tenderness. Abdominal: General: Abdomen is flat. Bowel sounds are normal. There is no distension. Palpations: Abdomen is soft. There is no shifting dullness, fluid wave, hepatomegaly, splenomegaly or mass. Tenderness: There is no abdominal tenderness. There is no right CVA tenderness, left CVA tenderness, guarding or rebound. Musculoskeletal: General: No swelling or tenderness. Normal range of motion. Cervical back: Normal range of motion and neck supple. Right lower leg: No edema. Left lower leg: No edema. Skin: General: Skin is warm. Capillary Refill: Capillary refill takes less than 2 seconds. Coloration: Skin is not jaundiced. Findings: No erythema or rash. Neurological: General: No focal deficit present. Mental Status: She is alert and oriented to person, place, and time. Mental status is at baseline. Psychiatric: Mood and Affect: Mood is anxious. Behavior: Behavior normal. Discharge Disposition: Discharge to home or self care Code Status at Discharge: Full Code Active Issues & Recommended Plan for Follow-up: Patient will need to follow-up with her primary care physician for resolution of symptoms. Follow-up with GI appointment already made Continue to take all medications as prescribed Discontinue smoking marijuana as can be the cause of some of her cyclic vomiting symptom. Allergies: Compazine [prochlorperazine], Phenergan [promethazine], Reglan [metoclopramide], and Zithromax [azithromycin] Discharge Medications: Your medication list START taking these medications Instructions Last Dose Given Next Dose Due nortriptyline 25 mg capsule Commonly known as: PAMELOR Take 1 capsule (25 mg total) by mouth nightly CONTINUE taking these medications Instructions Last Dose Given Next Dose Due apixaban 5 mg tablet Commonly known as: ELIQUIS Notes to patient: Blood thinner atorvastatin 40 mg tablet Commonly known as: LIPITOR Notes to patient: cholesterol Take 1 tablet (40 mg total) by mouth daily clonazePAM 0.5 mg tablet Commonly known as: KlonoPIN Notes to patient: anxiety dicyclomine 10 mg capsule Commonly known as: BENTYL Take 2 capsules (20 mg total) by mouth 4 (four) times a day as needed (abdominal pain/cramping) escitalopram 10 mg tablet Commonly known as: LEXAPRO Notes to patient: mood flecainide 50 mg tablet Commonly known as: TAMBOCOR Notes to patient: Irregular heart rate hydrOXYzine 25 mg tablet Commonly known as: ATARAX Notes to patient: Anxiety/itching lubiprostone 24 mcg capsule Commonly known as: AMITIZA Notes to patient: IBS/constipation Take 1 capsule (24 mcg total) by mouth 2 (two) times a day with meals metoprolol XL 25 mg extended release tablet Commonly known as: TOPROL-XL Notes to patient: Blood pressure ondansetron 4 mg tablet Commonly known as: ZOFRAN Notes to patient: nausea Take 1 tablet (4 mg total) by mouth every 6 (six) hours pantoprazole DR 40 mg EC tablet Commonly known as: PROTONIX Notes to patient: Acid trademark paralegal Take 1 tablet (40 mg total) by mouth daily polyethylene glycol 17 gram/dose powder Commonly known as: MIRALAX Take 1-2 capfuls nightly for constipation management. senna-docusate 8.6-50 mg Commonly known as: PERICOLACE Take 2 pills nightly for constipation management SUMAtriptan 50 mg tablet Commonly known as: IMITREX venlafaxine XR 37.5 mg 24 hr capsule Commonly known as: EFFEXOR-XR Notes to patient: mood Where to Get Your Medications These medications were sent to [id number] - [place], [place] - [address] [address], [place] [id number] ?? nortriptyline 25 mg capsule Time Spent in Discharge Process: I have spent 40 minutes on discharge planning activities. Time spent was on Coordination of care, Follow up , Counselling with patient/family, discharge exam and parent/patient education Test Results Pending at Discharge (If Blank, None Found): Operative Procedures Performed (If Blank, None Found): Procedure(s): ESOPHAGOGASTRODUODENOSCOPY BIOPSY Outpatient Follow-Up: Future Appointments Date Time Provider Department Center 01/14/2022 12:00 PM [facility] 01/14/2022 1:00 PM [facility] 01/14/2022 2:00 PM [facility] 01/14/2022 3:00 PM [facility] 01/14/2022 4:00 PM [facility] 01/28/2022 10:15 AM Richard Gracia NP [facility] 01/29/2022 9:30 AM Richard Gracia NP [facility] Contact Information for Follow-ups Parmjit Ewing MD Specialty: Family Medicine Relationship: PCP - General [address] [place] [address] [place] [address] Next Steps: Follow up Instructions: Please follow up with your PCP after hospital discharge. Call to make an appointment. Questions: Instructions for follow-up (appointment date and time): Please follow up with your PCP after hospital discharge. Call to make an appointment. To provider: PARMJIT EWING Ahmad A., MD Specialty: Gastroenterology, Internal Medicine [address] [place] [address] [address] [facility] [id number] Next Steps: Follow up Instructions: call to make a follow up in 6-8 weeks Please schedule an appointment with the following provider(s): Parmjit Ewing MD [address] [place] [address] [address] [place] [address] Please follow up with your PCP after hospital discharge. Call to make an appointment. Germania Sorto MD [address] [place] [address] [address] [facility] [id number] Follow up call to make a follow up in 6-8 weeks ANCILLARY INFORMATION Other Procedures & Diagnostic Tests: CT Abdomen Pelvis W Contrast Result Date: 12/18/2021 EXAM DESCRIPTION: CT ABDOMEN PELVIS W CONTRAST REASON FOR STUDY: Abdominal infection suspected 51 y.o. female with h/o irritable bowel syndrome, cyclical vomiting, presents for abdominal pain that isnot her typical abdominal pain. The patient had been feeling well for the past 2 weeks has only been eating 1 meal a day has lost 7 lb per her report (per GI note had gained 2 lb from her previous visit) saw her GI doctor yesterday who prescribed a new med but the patient has not started yet, she has not yet picked it up from the pharmacy. Today, she went to the bathroom, she was having some low abdominal pain and thought that she needed to have a bowel movement, sat on the toilet, did not havea bowel movement, but started sweating, feeling lightheaded like she was going to pass out, put a cool washcloth on her neck and laid down in bed. Then the pain traveled into her right-sided abdomen,was severe, stabbing without clear aggravating or relieving factors, but felt similar to when she had intussusception the past which is why she presented to the emergency department. She has been nauseated. No vomiting, no measured fever, no change in bowel habits. Last bowel movement was 2 days ago but she goes in between having diarrhea and constipation. No dysuria frequency urgency, no vaginalsymptoms, his history of uterine ablation and is postmenopausal. TECHNIQUE: CT scan of the abdomen and pelvis performed with intravenous and without oral contrast using helical scanning technique with dynamic intravenous contrast injection. Reconstructed coronal and sagittal MPR images reviewed. All images stored on PACS. Automated exposure control was used as a dose optimization technique for this examination. CONTRAST TYPE/DOSE: 100mL of IOVERSOL 320 MG IODINE/ML INTRAVENOUS SOLUTION injectedvia intravenous COMPARISON: 09/09/2021 FINDINGS: Motion artifact degrades images limiting interpretation evaluation of this examination. LOWER CHEST: No significant pulmonary abnormalities. No effusion. Small sliding hiatal hernia. LIVER: Focus of contrast enhancement in the right carey liver is notseen on prior examination, likely related to portal venous shunting, and phase of contrast. GALLBLADDER: Surgically absent BILE DUCTS: No intrahepatic or extrahepatic ductal dilatation. SPLEEN: Normal size. No focal lesions. PANCREAS: No identified cystic or solid masses. No significant calcifications. No adjacent inflammation or peripancreatic fluid collections. Pancreatic duct not dilated. ADRENALS: Normal. KIDNEYS/URINARY TRACT: Kidneys enhance symmetrically. Right upper pole renal lesion isdegraded by motion artifact and better evaluated on prior CT 09/09/2021. No hydronephrosis. Mild urinary bladder wall thickening. GI: New nodular soft tissue densities the right medial gluteal fold (image 147). For reference, there is a 1.1 cm nodular soft tissue density in the medial right glutealfold (image 147). Stomach and small bowel are normal in course and caliber without evidence of obstruction. The colon is normal. The appendix is normal. Tiny fat containing periumbilical hernia is seen. PERITONEUM: No ascites or free air. RETROPERITONEUM: The portal venous system is poorly opacified due to phase of contrast. The proximal superior mesenteric artery is patent. There is a replaced right hepatic artery. REPRODUCTIVE: No significant abnormality. VASCULATURE: No abdominal aortic aneur ysm. MUSCULOSKELETAL: Scoliosis. Grade 1 anterolisthesis of L4 on L5. Mild multilevel degenerative disc disease of the lumbar spine. Bilateral facet arthropathy. OTHER: No other abnormality. IMPRESSION: 1. Mild urinary bladder wall thickening. Recommend clinical correlation with urinalysis to evaluate for cystitis. 2. New, nodular soft tissue densities in the right medial gluteal fold. Infectiousetiology cannot be excluded. Recommend clinical correlation with physical examination. THIS IS AN ELECTRONICALLY VERIFIED FINAL REPORT 12/18/2021 1:07 AM - Electronically signed by Parmjit Herrera M.D. BB: BÁRBARA Report ID: [id number] Reading Loca tion: [id number] Recent Labs: Recent Labs Lab Units 12/19/2130212/17/212111 WBC K/cumm 10.3* 14.3* HEMOGLOBIN g/dL 9.1* 11.7* HEMATOCRIT % 29.3* 36.2 PLATELETS K/cumm 230 320 Recent Labs Lab Units 12/19/2130212/17/212111 WBC K/cumm 10.3* 14.3* HEMOGLOBIN g/dL 9.1* 11.7* HEMATOCRIT % 29.3* 36.2 PLATELETS K/cumm 230 320 NEUTROS PCT % -- 79.7 LYMPHS PCT % -- 14.4 MONOS PCT % -- 5.0 EOS PCT % -- 0.3 Recent Labs Lab Units 12/19/2130212/17/212111 SODIUM mmol/L 143 140 POTASSIUM PLASMA mmol/L 3.5 4.0 CHLORIDE mmol/L 108 103 CO2 mmol/L 26 25 BUN SERUM mg/dL 11 9 CREATININE mg/dL 0.79 0.70 [id number] mL/min/1.73 m2 89 103 GLUCOSE mg/dL 99 101 CALCIUM mg/dL 8.7 9.7 ALBUMIN g/dL -- 4.7 Recent Labs Lab Units 12/19/2130212/17/212111 SODIUM mmol/L 143 140 POTASSIUM PLASMA mmol/L 3.5 4.0 CHLORIDE mmol/L 108 103 CO2 mmol/L 26 25 ANIONGAP mmol/L 10 12 GLUCOSE mg/dL 99 101 BUN SERUM mg/dL 11 9 CREATININE mg/dL 0.79 0.70 CALCIUM mg/dL 8.7 9.7 ALBUMIN g/dL -- 4.7 ALK PHOS Units/L -- 107 ALT Units/L -- 10 AST Units/L -- 22 BILIRUBIN TOTAL mg/dL -- 0.3 Recent Labs Lab Units 12/17/212111 ALK PHOS Units/L 107 BILIRUBIN TOTAL mg/dL 0.3 TOTAL PROTEIN g/dL 7.7 ALT Units/L 10 AST Units/L 22 Lab Results Component Value Date GLUCOSE 99 12/19/2021 GLUCOSE 101 12/17/2021 GLUCOSE 106 09/09/2021 Implant: Implants No active implants to display in this view. General Precautions (If Blank, None Found): Isolation Status: No active isolations Nutritional Status and in-house recommendations: Dietary Orders (From admission, onward) Start Ordered 12/19/21 1104 Adult Diet GI Diets; GI Soft; Low Fat, Low Chol, Low Na Diet effective now Question Answer Comment ([facility]) Diet Type GI Diets GI: GI Soft Fat / Sodium Restriction: Low Fat, Low Chol, Low Na 12/19/21 1106 Anticoagulation Indication: INR: No results found for requested labs within last 720 hours. Warfarin Administrations (last 168 hours) None Oxygen Status: No data found. Wound Care Instructions Other Instructions Call provider for: Temperature -Temperature greater than 101 degrees F Call provider for: difficulty breathing or chest pain Call provider for: extreme fatigue Call provider for: hives Call provider for: persistent dizziness or light-headedness Call provider for: persistent nausea or vomiting Call provider for: redness, tenderness, or signs of infection (pain, swelling, redness, odor or green/yellow discharge around incision site) Call provider for: severe uncontrolled pain Call provider for: headache, visual disturbances, weakness and speech changes If you have any questions or concerns after discharge please call [facility] at [phone]. Active LDAs (If Blank, None Found): Patient Emergency Contact: Primary Emergency Contact: Arnulfo Mays Immunization Status at Discharge Immunization History Administered Date(s) Administered ??? Influenza, Unspecified 05/01/2021 ??? Moderna SARS-CoV-2 Vaccination 01/23/2021, 02/20/2021 Joshua Pearson MD Cosigned by Naz Enriquez MD at 12/20/2021 6:06 PM CDT Associated attestation - Naz Enriquez MD - 12/20/2021 6:06 PM CDT I personally saw and examined the patient on 12/20/2021 and discussed the case with the resident. Kevin reviewed the resident's note and agree with the content and plan as written. Additional information as noted below. Patient admitted and treated for ongoing issues with cyclical vomiting. Patient improved by discharge. Was seen by GI and started on nortriptyline. EGD completed with no acute issues. A final exam, heart regular rate and rhythm. Lungs clear. Abdomen soft and nontender. Patient tolerating regular diet by discharge. Discharged home with plan to continue follow-up with GI as well as her primary physician. Please see resident physician note for full details. Total time spent in discharge: 40 minutes Naz Enriquez MD Director of Family Medicine Inpatient Services Sales Representative [employer], [facility] documented in this encounter Discharge Instructions * Discharge Instr - Other Orders* Julia Pulido RN - 12/20/2021 11:44 AM CDT If you have any questions or concerns after discharge please call [facility] at [phone]. * Attachments The following attachments cannot be sent through Care Everywhere. * Nortriptyline (By mouth) (Surinamese) documented in this encounter Medications at Time [...] Take 10 mg by mouth daily 3 flecainide (TAMBOCOR) 50 mg tablet Take 50 mg by mouth 2 (two) times a day 3 hydrOXYzine (ATARAX) 25 mg tablet Take [...] 12/12/2021 3 documented as of this encounter Ordered Prescriptions Prescription Sig Dispense Quantity Refills Last Filled Start Date End Date nortriptyline (PAMELOR) 25 mg capsule Take 1 capsule (25 mg total) by mouth nightly 30 capsule 11 12/20/2021 3 nortriptyline (PAMELOR) 25 mg capsule Take 1 capsule (25 mg total) by mouth nightly 30 capsule 12/20/2021 2 documented in this encounter Discharge Disposition Disposition Code Departure Means Destination Discharge to home or self care documented in this encounter Progress Notes * Joshua Pearson MD - 12/19/2021 4:24 PM CDT Images from the original note were not included. General Medicine Daily Progress [facility] Sarahy Mays [id number] Admitting Provider: Cheyenne Benavides MD Primary Care Physician:Parmjit Ewing MD [phone] Attending Physician: Naz Enriquez MD Today's Date: 12/19/2021 Time: 4:30 PM Admission Date: 12/17/2021 SUBJECTIVE Sarahy Mays is a 51 y.o. female with a PMH of irritable bowel syndrome, cyclic vomiting, chronic marijuana use presented to the emergency department with complaints of decreased appetite, weight loss, uncontrollable nausea and vomiting. Interval history: Patient states that she is feeling well overall and is seen lying in supine position in NAD. Decreased appetite but tolerating clear liquid diet. Progressed by GI today with small bites taken. Patient still having nausea without vomiting. She did not take nortriptyline last night due to questions about side effects and interactions with other medications. Says she will try tonight. Reports diarrhea has continued since admission. Decreased sleep due to anxiety over current medical condition and fear of getting another TIA. Denies any headache, changes in vision, cough, new onset chest pain, shortness of breath. OBJECTIVE Vitals: 24hr Min/Max: Temp Min: 36.3 ??C (97.3 ??F) Max: 37.1 ??C (98.7 ??F) Pulse Min: 44 Max: 95 BP Min: 101/61 Max: 129/69 Resp Min: 15 Max: 16 SpO2 Min: 98 % Max: 100 % Most Recent : Vitals: 12/19/21 1545 BP: Pulse: 76 Resp: Temp: SpO2: I/O last 2 completed shifts: In: 1910 [P.O.:360; I.V.:1550] Out: - I/O this shift: In: 300 [P.O.:300] Out: - Past Medical History: Diagnosis Date ??? Anxiety ??? Arthritis ??? Bipolar affect, depressed (CMS/HCC) (HCC) ??? Cyclic vomiting syndrome ??? Depression ??? Headache, tension-type ??? Hypertension ??? Migraine ??? Stroke (CMS/HCC) (HCC) ??? Weight loss Medications Review Scheduled Meds: Current Facility-Administered Medications Medication Dose Route Frequency Provider Last Rate Last Admin ??? acetaminophen (TYLENOL) tablet 650 mg 650 mg oral Q4H PRN Germania Sorto MD 650 mg at 12/19/21 1517 ??? apixaban (ELIQUIS) tablet 5 mg 5 mg oral BID Joshua Pearson MD 5 mg at 12/19/21 0803 ??? atorvastatin (LIPITOR) tablet 40 mg 40 mg oral Daily Joshua Pearson MD 40 mg at 12/18/212024 ??? bisacodyl EC (DULCOLAX EC) tablet 10 mg 10 mg oral Daily PRN Naz Enriquez MD ??? citalopram (CeleXA) tablet 10 mg 10 mg oral Daily Joshua Pearson MD ??? clonazePAM (KlonoPIN) tablet 0.5 mg 0.5 mg oral QAM Joshua Pearson MD 0.5 mg at 12/18/21 2248 ??? famotidine (PEPCID) tablet 20 mg 20 mg oral BID Joshua Pearson MD 20 mg at 12/19/21 0807 ??? flecainide (TAMBOCOR) tablet 50 mg 50 mg oral BID Joshua Pearson MD 50 mg at 12/19/21 0801 ??? haloperidol (HALDOL) injection 2 mg 2 mg intramuscular Q6H PRN Germania Sorto MD ??? hydrOXYzine (VISTARIL) capsule 25 mg 25 mg oral TID PRN Naz Enriquez MD ??? lubiprostone (AMITIZA) capsule 24 mcg 24 mcg oral BID with meals (bkfst, dinner) Joshua Pearson MD 24 mcg at 12/19/21 0813 ??? magnesium hydroxide (MILK OF MAGNESIA) 80 mg/mL (33.3 mg/mL as elemental magnesium) oral suspension 30 mL 30 mL oral Daily PRN Naz Enriquez MD ??? metoprolol XL (TOPROL-XL) extended release tablet 25 mg 25 mg oral Daily Joshua Pearson MD 25 mg at 12/19/21 0803 ??? mineral oil (FLEET MINERAL OIL) enema 1 enema 1 enema rectal Daily PRN Naz Enriquez MD ??? nortriptyline (PAMELOR) capsule 25 mg 25 mg oral Nightly Germania Sorto MD ??? ondansetron ODT (ZOFRAN-ODT) disintegrating tablet 4 mg 4 mg oral Q6H PRN Germania Sorto MD Or ??? ondansetron (ZOFRAN) injection 4 mg 4 mg intravenous Q6H PRN Germania Sorto MD 4 mg at 12/18/21 0714 ??? ondansetron (ZOFRAN) tablet 4 mg 4 mg oral Q6H Joshua Pearson MD 4 mg at 12/19/21 1114 ??? polyethylene glycol (MIRALAX) packet 17 g 17 g oral Daily PRN Germania Sorto MD ??? polyethylene glycol (MIRALAX) packet 17 g 17 g oral Nightly Joshua Pearson MD ??? senna-docusate (PERICOLACE) 8.6-50 mg per tablet 2 tablet 2 tablet oral Nightly Joshua Pearson MD ??? sodium chloride 0.9% flush 0.5-20 mL 0.5-20 mL intra-catheter Q8H [facility] Germania Sorto MD 10 mL at 12/19/21 1519 ??? sodium chloride 0.9% flush 0.5-20 mL 0.5-20 mL intra-catheter PRN Germania Sorto MD ??? SUMAtriptan (IMITREX) tablet 50 mg 50 mg oral Once PRN Joshua Pearson MD ??? venlafaxine XR (EFFEXOR-XR) extended release capsule 37.5 mg 37.5 mg oral Daily Joshua Pearson MD 37.5 mg at 12/19/21 0803 PRN Meds:??? acetaminophen ??? bisacodyl EC ??? haloperidol ??? hydrOXYzine ??? magnesium hydroxide ??? mineral oil ??? ondansetron ODT OR ondansetron ??? polyethylene glycol ??? sodium chloride 0.9% ??? SUMAtriptan Home Meds: HOME MEDICATIONS : apixaban (ELIQUIS) 5 mg tablet atorvastatin (LIPITOR) 40 mg tablet clonazePAM (KlonoPIN) 0.5 mg tablet dicyclomine (BENTYL) 10 mg capsule escitalopram (LEXAPRO) 10 mg tablet flecainide (TAMBOCOR) 50 mg tablet hydrOXYzine (ATARAX) 25 mg tablet lubiprostone (AMITIZA) 24 mcg capsule metoprolol XL (TOPROL-XL) 25 mg extended release tablet ondansetron (ZOFRAN) [address] (PROTONIX) 40 mg EC tablet polyethylene glycol (MIRALAX) 17 gram/dose powder senna-docusate (PERICOLACE) 8.6-50 mg SUMAtriptan (IMITREX) 50 mg tablet venlafaxine XR (EFFEXOR-XR) 37.5 mg 24 hr capsule Continuous Infusions: Physical Exam Lab/Current Review: Recent Results (from the past 24 hour(s)) CBC without differential Collection Time: 12/19/21 3:03 AM Result Value Ref Range WBC 10.3 (H) 3.8 - 9.9 K/cumm Hgb 9.1 (L) 11.9 - 15.5 g/dL Hct 29.3 (L) 35.6 - 45.5 % Plt 230 150 - 400 K/cumm MPV 11.1 9.1 - 12.3 fL RBC 3.42 (L) 3.90 - 5.20 M/cumm MCV 85.7 81.3 - 96.4 fL MCH 26.6 (L) 27.1 - 33.3 pg MCHC 31.1 (L) 32.3 - 35.7 g/dL RDW CV 16.3 (H) 11.1 - 14.9 % RDW SD 51.1 (H) 35.7 - 48.1 fL NRBC abs 0.00 0.00 - 0.01 K/cumm Basic metabolic panel Collection Time: 12/19/21 3:03 AM Result Value Ref Range Sodium 143 135 - 145 mmol/L Potassium, pl 3.5 3.3 - 4.9 mmol/L Chloride 108 97 - 110 mmol/L CO2 26 22 - 32 mmol/L Anion gap 10 2 - 15 mmol/L BUN 11 8 - 25 mg/dL Creatinine 0.79 0.60 - 1.10 mg/dL Glucose 99 70 - 199 mg/dL Calcium 8.7 8.5 - 10.3 mg/dL eGFR Collection Time: 12/19/21 3:03 AM Result Value Ref Range eGFR 89 mL/min/1.73 m2 No results found for: TROPONINT Recent Labs Lab Units 12/17/21 2335 LACTATE mmol/L 1.0 Recent Labs Lab Units 12/19/21 0303 CREATININE mg/dL 0.[address] Abdomen Pelvis W Contrast Result Date: 12/18/2021 Narrative: EXAM DESCRIPTION: CT ABDOMEN PELVIS W CONTRAST REASON FOR STUDY: Abdominal infection suspected 51 y.o. female with h/o irritable bowel syndrome, cyclical vomiting, presents for abdominal pain that is not her typical abdominal pain. The patient had been feeling well for the past 2 weeks has only been eating 1 meal a day has lost 7 lb per her report (per GI note had gained 2 lb from her previous visit) saw her GI doctor yesterday who prescribed a new med but the patient has not startedyet, she has not yet picked it up from the pharmacy. Today, she went to the bathroom, she was having some low abdominal pain and thought that she needed to have a bowel movement, sat on the toilet, di d not have a bowel movement, but started sweating, feeling lightheaded like she was going to pass out, put a cool washcloth on her neck and laid down in bed. Then the pain traveled into her right-sided abdomen, was severe, stabbing without clear aggravating or relieving factors, but felt similar towhen she had intussusception the past which is why she presented to the emergency department. She has been nauseated. No vomiting, no measured fever, no change in bowel habits. Last bowel movement was 2 days ago but she goes in between having diarrhea and constipation. No dysuria frequency urgency,no vaginal symptoms, his history of uterine ablation and is postmenopausal. TECHNIQUE: CT scan of the abdomen and pelvis performed with intravenous and without oral contrast using helical scanning technique with dynamic intravenous contrast injection. Reconstructed coronal and sagittal MPR images reviewed. All images stored on PACS. Automated exposure control was used as a dose optimization technique for this examination. CONTRAST TYPE/DOSE: 100mL of IOVERSOL 320 MG IODINE/ML INTRAVENOUS SOLUTION injected via intravenous COMPARISON: 09/09/2021 FINDINGS: Motion artifact degrades images limiting interpretation evaluation of this examination. LOWER CHEST: No significant pulmonary abnormalities. No effusion. Small sliding hiatal hernia. LIVER: Focus of contrast enhancement in the right carey liver is not seen on prior examination, likely related to portal venous shunting, and phase of contrast. GALLBLADDER: Surgically absent BILE DUCTS: No intrahepatic or extrahepatic ductal dilatation. SPLEEN: Normal size. No focal lesions. PANCREAS: No identified cystic or solid masses. No significant c alcifications. No adjacent inflammation or peripancreatic fluid collections. Pancreatic duct not dilated. ADRENALS: Normal. KIDNEYS/URINARY TRACT: Kidneys enhance symmetrically. Right upper pole renal lesion is degraded by motion artifact and better evaluated on prior CT 09/09/2021. No hydronephrosis. Mild urinary bladder wall thickening. GI: New nodular soft tissue densities the right medial gluteal fold (image 147). For reference, there is a 1.1 cm nodular soft tissue density in the medial right gluteal fold (image 147). Stomach and small bowel are normal in course and caliber without evidence of obstruction. The colon is normal. The appendix is normal. Tiny fat containing periumbilical he rnia is seen. PERITONEUM: No ascites or free air. RETROPERITONEUM: The portal venous system is poorly opacified due to phase of contrast. The proximal superior mesenteric artery is patent. There is areplaced right hepatic artery. REPRODUCTIVE: No significant abnormality. VASCULATURE: No abdominal aortic aneurysm. MUSCULOSKELETAL: Scoliosis. Grade 1 anterolisthesis of L4 on L5. Mild multilevel degenerative disc disease of the lumbar spine. Bilateral facet arthropathy. OTHER: No other abnormality. IMPRESSION: 1. Mild urinary bladder wall thickening. Recommend clinical correlation with urinalysis to evaluate for cystitis. 2. New, nodular soft tissue densities in the right medial gluteal fold.Infectious etiology cannot be excluded. Recommend clinical correlation with physical examination. THIS IS AN ELECTRONICALLY VERIFIED FINAL REPORT 12/18/2021 1:07 AM - Electronically signed by Parmjit Herrera M.D. BB: BÁRBARA Report ID: [id number] Reading Location: [id number] Microbiology 12/18/21 1355 Influenza A/B, RSV, and COVID-19 PCR Nasopharyngeal Collected: 12/18/21 1305 Final result Specimen: Nasopharyngeal COVID-19 RNA Negative Influenza B RNA Negative Influenza A RNA Negative RSV RNA Negative ASSESSMENT AND PLAN: 12/19/21 Patient stable at this time continue have nausea and vomiting. Did not take nortriptyline last night but will this evening. Anticipate discharge tomorrow. Active Problems: Cyclic vomiting syndrome Irritable bowel syndrome with both constipation and diarrhea Hypertension Atrial fibrillation (CMS/HCC) ([facility]) Migraine headache Abdominal pain, generalized Bipolar affect, depressed (CMS/HCC) ([facility]) Marijuana use Resolved Problems: No resolved hospital problems. Cyclic vomiting syndrome Assessment & Plan Patient has history of cyclic vomiting syndrome, [...] effects and interactions with other medications. Says lian take tonight. - UDS screen positive for cannabinoids: Have advised to stop - Nortriptyline per GI - p.r.n. Haldol, Zofran, hydroxyzine - Protonix - Diet progression as tolerated - GI on consult appreciate recommendations Marijuana use Assessment & Plan Patient admits to daily marijuana use. Possibly contributing to cyclic vomiting. Have advised pt tostop smoking. - UDS: Positive for cannabinoid Bipolar affect, depressed ([facility]) ([facility]) Assessment & Plan Patient has history of [...] cyclic vomiting, will also help with agitation/anxiety Abdominal pain, generalized Assessment & Plan Patient reports generalized abdominal pain with multiple [...] hydroxyzine, Zofran, MiraLax, - GI on consult: Migraine headache Assessment & Plan Started home Topamax Atrial fibrillation ([facility]) ([facility]) Assessment & Plan Patient has history of AFib. Currently normal sinus rhythm. - Anticoagulation: Eliquis 5 mg b.i.d. - Rate control: Metoprolol XL 25 mg q.day, flecainide 50 mg b.i.d. - Pt on telemetry at this time - will continue to monitor Hypertension Assessment & Plan Have reviewed 24 hour blood pressures and stable at this time. BP: (96-145)/(57-96) 100/61 - will continue home blood pressure medications metoprolol XL 25 mg q.day Irritable bowel syndrome with both constipation and diarrhea Assessment & Plan She is currently denying any diarrhea but reports constipation. Patient states she was recently seen by GI who started lubiprostone 24 b.i.d.. She has not started this medication. - Started home lubiprostone, Miralax and Pericolace - continue Bentyl - GI on consult Code: Full FEN: Patient started on IV fluids, electrolytes within normal limits, nutritional supplements as needed Diet: Adult clear liquid GI prophylaxis: Protonix DVT prophylaxis: Eliquis Precautions: Consults: GI Disposition: Sarahy Mays is a 51 y.o. female admitted for cyclic vomiting on 12/17/2021. Waiting for GI workup including EGD and discharge when released by a GI. Anticipate discharge in 1-2 days. Portions of the record may have been created with voice recognition software. Occasional wrong-word or '[id number]' substitutions may have occurred due to the inherent limitations of voice recognition software. Read the chart carefully and recognize, using context, where substitutions have occurred. RAJIV Pearson MD Family Medicine PGY-1 [facility] 12/19/2021 4:30 PM Cosigned by Naz Enriquez MD at 12/19/2021 5:08 PM CDT Associated attestation - Naz Enriquez MD - 12/19/2021 5:08 PM CDT I personally saw and examined the patient on 12/19/2021 and discussed the case with the resident. Kevin reviewed the resident's note and agree with the content and plan as written. Additional information as noted below. Patient seen earlier today. Feeling better with no current nausea or vomiting. Already seen by GI with diet advanced. Patient agreeable to taking nortriptyline tonight. On exam, no acute distress. Abdomen with bowel sounds present, soft an nontender. Heart regular rate and rhythm. Lungs clear bilaterally. Will monitor overnight. Anticipate discharge tomorrow if stable. Continue treatment as otherwise outlined in resident physician note. MDM: Yancy Enriquez MD Director of Family Medicine Inpatient Services Sales Representative [employer], [facility] * Germania Sorto MD - 12/19/2021 2:37 PM CDT GI Daily Progress Note Date of visit: 12/19/2021 Subjective: Last 24 hours records reviewed. Patient is doing well. No more nausea vomiting since yesterday. No abdominal pain. No chest pain. No dysphagia. She feels well. She tolerated liquid diet well. ROS: GENERAL: no fever, appetite is good. RESPIRATORY: no shortness of breath, no cough. SKIN: no itching, no rash. EYES: no redness, no itching, no visual changes. Objective: Vital signs in last 24 hours: Temp: [36.3 ??C (97.3 ??F)-37.1 ??C (98.7 ??F)] 36.3 ??C (97.3 ??F) Pulse: [50-95] 95 Resp: [15-18] 16 BP: (100-112)/(59-66) 112/66 Intake/Output last 3 shifts: I/O last 3 completed shifts: In: 1910 [P.O.:360; I.V.:1550] Out: - Physical Exam: Patient is alert and oriented to time and place and self. Patient appears comfortable. Eyes: no jaundice. Lymphatics: no submandibular and no subclavicular lymphadenopathy. Lungs: CTA anteriorly. ENT: no mouth ulcers. GI: abdomen is soft, no distention, no tenderness, bowel sounds positive. Musculos keletal: no joint swelling, no edema. Skin: no rash. Psych: mood seems normal. No confusion. Labs and Imaging: Labs and X rays reviewed. Recent Results (from the past 24 hour(s)) CBC without differential Collection Time: 12/19/21 3:03 AM Result Value Ref Range WBC 10.3 (H) 3.8 - 9.9 K/cumm Hgb 9.1 (L) 11.9 - 15.5 g/dL Hct 29.3 (L) 35.6 - 45.5 % Plt 230 150 - 400 K/cumm MPV 11.1 9.1 - 12.3 fL RBC 3.42 (L) 3.90 - 5.20 M/cumm MCV 85.7 81.3 - 96.4 fL MCH 26.6 (L) 27.1 - 33.3 pg MCHC 31.1 (L) 32.3 - 35.7 g/dL RDW CV 16.3 (H) 11.1 - 14.9 % RDW SD 51.1 (H) 35.7 - 48.1 fL NRBC abs 0.00 0.00 - 0.01 K/cumm Basic metabolic panel Collection Time: 12/19/21 3:03 AM Result Value Ref Range Sodium 143 135 - 145 mmol/L Potassium, pl 3.5 3.3 - 4.9 mmol/L Chloride 108 97 - 110 mmol/L CO2 26 22 - 32 mmol/L Anion gap 10 2 - 15 mmol/L BUN 11 8 - 25 mg/dL Creatinine 0.79 0.60 - 1.10 mg/dL Glucose 99 70 - 199 mg/dL Calcium 8.7 8.5 - 10.3 mg/dL eGFR Collection Time: 12/19/21 3:03 AM Result Value Ref Range eGFR 89 mL/min/1.73 m2 No results found. GI IMPRESSION: 1. Acute nausea vomiting. This is recurrent episodes attributed to cyclic vomiting syndrome and possibly to associated chronic marijuana use. GI PLAN/RECOMMENDATIONS: 1. Patient is doing well. Advance diet. 2. Continue famotidine. Continue nortriptyline at night. 3. If diet tolerated the patient can be discharged home. 4. Follow-up in the GI office in 6-8 weeks Voice recognition software [employer] was used dictate and transcribe this document. [employer] variances may occur. Despite proofreading, typographical errors may occur. Germania Sorto MD * Christa Abdullahi, KIET - 12/19/2021 12:26 PM CDT CM Initial Assessment Interview Note Information Obtained From: Patient (12/19/21 1223) Admission Source: home Impression: nausea and vomiting Plan Includes: evaluation Primary Source of Transportation: Does the patient need discharge transport arranged?: No (12/18/21 4097) Health Insurance Coverage: [facility] Prescription Coverage: yes Pharmacy: [facility] Primary Care Provider: Parmjit Ewing MD Prior to Admission: Primary Caregiver: Self Support System: Spouse/Significant Other, Children, Family members Home Care Services: No Durable Medical Equipment: None Living Arrangements: Spouse/significant other, Children, Family members Type of Residence: Private residence Steps in home? : No steps inside or outside (12/18/21 1317) Potential discharge needs include: Patient expects to be Discharged to: Private residence, (12/19/21 1223) Additional Information: Patient lives at home with her , daughter, daughter's fiance and grandson. She is independent with mobility and adls. No devices used. Patient can drive. She doesn't work. Discharge plan is to return to home and her or daughter will provide transportation. No needs at this time. IMM signed. Will continue to follow. Patient's Identified Problem/Goal Problem: Ensure acute medical needs are met and that patient has a safe discharge plan. Goal: Secure a discharge plan that patient/family are agreeable with and ensure patient has continuum of care. Case management will follow for discharge planning and send referrals as needed. Christa Abdullahi RN * Germania Sorto MD - 12/18/2021 8:30 AM CDT GI Daily Progress Note Date of visit: 12/18/2021 Subjective: Last 24 hours records reviewed. Patient was doing well yesterday and she was in the GI office. Patient went home and around 10:00 a.m. at night she started to have dry heaving and nausea vomiting. She could not recall if she ate anything bad. Discontinue overnight so she came today is to the emergency room. Symptoms seems to quickly settled. She has some abdominal cramping but no severe abdominalpain. No hematemesis. Patient throw up mainly bile. She has no dysphagia. Patient has recurrent episode of nausea vomiting over the years and diagnosed with cyclic vomiting syndrome. At home she take Protonix. She has chronic constipation and she take laxatives at home ROS: GENERAL: no fever, appetite is normal good. RESPIRATORY: no shortness of breath, no cough. SKIN: no itching, no rash. EYES: no redness, no itching, no visual changes. Objective: Vital signs in last 24 hours: Temp: [36 ??C (96.8 ??F)-37.2 ??C (98.9 ??F)] 36 ??C (96.8 ??F) Pulse: [61-78] 61 Resp: [11-22] 22 BP: (96-145)/(61-96) 96/61 Intake/Output last 3 shifts: No intake/output data recorded. Physical Exam: Patient is alert and oriented to time and place and self. Patient appears comfortable. Eyes: no jaundice. Lymphatics: no submandibular and no subclavicular lymphadenopathy. Lungs: CTA anteriorly. ENT: no mouth ulcers. GI: abdomen is soft, no distention, no tenderness, bowel sounds positive. Musculos keletal: no joint swelling, no edema. Skin: no rash. Psych: mood seems normal. No confusion. Labs and Imaging: Labs and X rays reviewed. Recent Results (from the past 24 hour(s)) CBC with auto differential Collection Time: 12/17/21 9:12 PM Result Value Ref Range WBC 14.3 (H) 3.8 - 9.9 K/cumm Hgb 11.7 (L) 11.9 - 15.5 g/dL Hct 36.2 35.6 - 45.5 % Plt 320 150 - 400 K/cumm MPV 10.6 9.1 - 12.3 fL RBC 4.38 3.90 - 5.20 M/cumm MCV 82.6 81.3 - 96.4 fL MCH 26.7 (L) 27.1 - 33.3 pg MCHC 32.3 32.3 - 35.7 g/dL RDW CV 15.5 (H) 11.1 - 14.9 % RDW SD 46.9 35.7 - 48.1 fL NRBC abs 0.00 0.00 - 0.01 K/cumm Comprehensive metabolic panel Collection Time: 12/17/21 9:12 PM Result Value Ref Range Sodium 140 135 - 145 mmol/L Potassium, pl 4.0 3.3 - 4.9 mmol/L Chloride 103 97 - 110 mmol/L CO2 25 22 - 32 mmol/L Anion gap 12 2 - 15 mmol/L BUN 9 8 - 25 mg/dL Creatinine 0.70 0.60 - 1.10 mg/dL Glucose 101 70 - 199 mg/dL Calcium 9.7 8.5 - 10.3 mg/dL Bilirubin, total 0.3 0.1 - 1.2 mg/dL Protein, pl 7.7 6.5 - 8.5 g/dL Albumin 4.7 3.5 - 5.0 g/dL Alk phos 107 40 - 130 Units/L ALT 10 7 - 45 Units/L AST 22 10 - 45 Units/L Lipase Collection Time: 12/17/21 9:12 PM Result Value Ref Range Lipase 38 10 - 99 Units/L Differential, auto Collection Time: 12/17/21 9:12 PM Result Value Ref Range Neutrophil abs 11.4 (H) 1.7 - 6.5 K/cumm Imm gran abs 0.0 0.0 - 0.1 K/cumm Lymphocyte abs 2.1 0.8 - 3.3 K/cumm Monocyte abs 0.7 0.2 - 0.8 K/cumm Eosinophil abs 0.1 0.0 - 0.5 K/cumm Basophil abs 0.0 0.0 - 0.1 K/cumm Neutrophil pct 79.7 % Imm gran pct 0.3 % Lymphocyte pct 14.4 % Monocyte pct 5.0 % Eosinophil pct 0.3 % Basophil pct 0.3 % eGFR Collection Time: 12/17/21 9:12 PM Result Value Ref Range eGFR 103 mL/min/1.73 m2 Urinalysis reflex to microscopic and culture Urine, clean voided Collection Time: 12/17/21 9:25 PM Specimen: Urine, clean voided Result Value Ref Range Color, ur Yellow Yellow Clarity, ur Clear Clear Specific gravity, ur 1.010 1.003 - 1.030 pH, urine 6.5 Protein, ur ql Negative Negative Glucose, ur ql Negative Negative Ketones, ur Negative Negative Bilirubin, ur Negative Negative Blood, ur Negative Negative Urobilinogen, ur <2.0 <2.0 mg/dL Nitrite, ur Negative Negative Leukocyte esterase, ur Negative Negative UA reflex comment Reflex conditions for microscopic UA and culture not met. Drugs of Abuse Screen, Urine without Confirmation Collection Time: 12/17/21 9:25 PM Result Value Ref Range Amphetamine, ur Not Detected CutOff 500ng/mL Barbiturates, ur Not Detected CutOff 200ng/mL Benzodiazepines, ur Not Detected CutOff 100ng/mL Cannabinoids, ur Detected (A) CutOff 50 ng/mL Cocaine, ur Not Detected CutOff 150ng/mL Fentanyl, Ur Not Detected Cutoff 1 ng/mL Methadone, ur Not Detected CutOff 300ng/mL Opiates, ur Not Detected CutOff 300ng/mL Oxycodone, ur Not Detected CutOff 100ng/mL Phencyclidine, ur Not Detected CutOff 25 ng/mL Urine Creatinine 101 mg/dL Lactate Collection Time: 12/17/21 11:35 PM Result Value Ref Range Lactate 1.0 0.7 - 2.0 mmol/L No results found. GI IMPRESSION: 1. Recurrent episode nausea vomiting attributed to cyclic vomiting syndrome. With this is primarilycyclic vomiting syndrome or secondary to marijuana use is hard to a certain in the setting. I suspect this is at least partially effect of hyperemesis secondary to marijuana use. GI PLAN/RECOMMENDATIONS: 1. EGD today. 2. Counseling for marijuana use. 3. Nortriptyline at night. 4. Follow-up progress. Voice recognition software [employer] was used dictate and transcribe this document. Hat Brim Curler variances may occur. Despite proofreading, typographical errors may occur. Germania Sorto MD documented in this encounter H&P Notes * Joshua Pearson MD - 12/18/2021 4:52 PM CDT Images from the original note were not included. History and Physical Hospitalist services [facility] Admitting Provider: Cheyenne Benavides MD Primary Care Physician:Parmjit Ewing MD [phone] Attending Physician: Naz Enriquez MD Admission Date: 12/17/2021 Sarahy Mays [id number] SUBJECTIVE Sarahy Mays is a 51 y.o. female with a PMH of irritable bowel syndrome, cyclic vomiting, chronic marijuana use presented to the emergency department with complaints of decreased appetite, weight loss, uncontrollable nausea and vomiting. HPI: Onset of symptoms was about 2 weeks ago when patient noted decrease in appetite. Reports only eating 1 meal a day during this time with weight loss. However during GI office visit patient had noted to gain 2 lb. Reports seeing GI yesterday who prescribed her lubiprostone 24 mcg b.i.d. with breakfast and dinner. She reports not starting the medication due to sudden onset of abdominal pain with bowel urgency with no relief or bowel movement. Patient reports associated diaphoresis and feelinglightheaded like she was going to pass out. Pain was rated 8/10, radiated to her left lower quadrant. Was described as stabbing with no clear aggravating factors. Reports that felt similar to when she had intussusception so she went to the emergency department. Reports multiple episodes of nausea with vomiting unable to tell how many times. Did not take her temperature, reports no bowel movement in the last 2 days. Does have a history of IBD and fluctuates between diarrhea and constipation. At this time she denies any headache, lightheadedness, difficulty swelling, cough, chills, fever, nightsweats, chest pain, palpitations, shortness of breath changes in urination frequency/dysuria. No vaginal symptoms as patient has history of uterine ablation and is postmenopausal. ED Course: While in the emergency department significant labs UDS positive for cannabinoids, leukocytosis with white blood cells at 14.3. Mild anemia with hemoglobin 11.7. CMP, kidney function, lactate all reassuring. CT showed normal bowel structures but did have noted nodules in the gluteal folds, with mild bladder wall thickening. UA unremarkable with conditions not met for reflex. Upper respiratory panel including COVID unremarkable. Patient was given Zofran, Haldol, Phenergan rectal with little relief. Continued to have nausea and vomiting and was admitted for further management. Past Medical History: Diagnosis Date ??? Anxiety ??? Arthritis ??? Bipolar affect, depressed (CMS/HCC) (FORM[facility]LY [facility]) ??? Cyclic vomiting syndrome ??? Depression ??? Headache, tension-type ??? Hypertension ??? Migraine ??? Stroke (CMS/HCC) ([facility]) ??? Weight loss Past Surgical History: Procedure Laterality Date ??? ABDOMINAL SURGERY 2013 hiatel hernia repair ??? ARTHROSCOPIC SURGERY Left 1984,1994,2001 knee ??? SECTION 1992 ??? CHOLECYSTECTOMY ??? ENDOMETRIAL ABLATION ??? HERNIA REPAIR ??? TUBAL LIGATION Medications Prior to Admission Medication Sig Dispense Refill Last Dose ??? apixaban (ELIQUIS) 5 mg tablet Take 5 mg by mouth 2 (two) times a day 12/17/2021 at Unknown time ??? atorvastatin (LIPITOR) 40 mg tablet Take 1 tablet (40 mg total) by mouth daily 30 tablet 1 ??? clonazePAM (KlonoPIN) 0.5 mg tablet Take 0.5 mg by mouth every morning Past Week at Unknown time ??? dicyclomine (BENTYL) 10 mg capsule Take 2 capsules (20 mg total) by mouth 4 (four) times a day as needed (abdominal pain/cramping) 240 capsule 5 12/17/2021 at Unknown time ??? escitalopram (LEXAPRO) 10 mg tablet Take 10 mg by mouth daily Past Week at Unknown time ??? flecainide (TAMBOCOR) 50 mg tablet Take 50 mg by mouth 2 (two) times a day Past Week at Unknowntime ??? hydrOXYzine (ATARAX) 25 mg tablet Take 25 mg by mouth 3 (three) times a day as needed Past Weekat Unknown time ??? lubiprostone (AMITIZA) 24 mcg capsule Take 1 capsule (24 mcg total) by mouth 2 (two) times a day with meals 60 capsule 5 Unknown at Unknown time ??? metoprolol XL (TOPROL-XL) 25 mg extended release tablet Take 25 mg by mouth daily 12/17/2021 at Unknown time ??? ondansetron (ZOFRAN) 4 mg tablet Take 1 tablet (4 mg total) by mouth every 6 (six) hours 30 tablet 5 12/17/2021 at Unknown time ??? pantoprazole DR (PROTONIX) 40 mg EC tablet Take 1 tablet (40 mg total) by mouth daily 90 tablet3 12/17/2021 at Unknown time ??? polyethylene glycol (MIRALAX) 17 gram/dose powder Take 1-2 capfuls nightly for constipation management. 595 g 3 Past Week at Unknown time ??? senna-docusate (PERICOLACE) 8.6-50 mg Take 2 pills nightly for constipation management 180 tablet 3 Past Week at Unknown time ??? SUMAtriptan (IMITREX) 50 mg tablet Take 50 mg by mouth once as needed for migraine May repeat dose once in 2 hours if no relief. Do not exceed 2 doses in 24 hours. Past Week at Unknown time ??? venlafaxine XR (EFFEXOR-XR) 37.5 mg 24 hr capsule Take 37.5 mg by mouth daily Past Week at Unknown time Allergies Allergen Reactions ??? Compazine [Prochlorperazine] Other (See comments) made me feel weird, odd also agitation ??? Phenergan [Promethazine] Agitation ??? Reglan [Metoclopramide] Other (See comments) Had TIA after trying. ??? Zithromax [Azithromycin] Stomach upset Social History Tobacco Use ??? Smoking status: Former Smoker Start date: 1983 Quit date: 2000 Years since quittin.3 ??? Smokeless tobacco: Never Used ??? Tobacco comment: off and on Substance Use Topics ??? Alcohol use: No Comment: on occasion Family History Problem Relation Age of Onset ??? Esophageal cancer Maternal Grandmother ??? Heart disease Maternal Grandmother ??? Stroke Maternal Grandmother ??? Hypertension Maternal Grandmother ??? Migraines Mother Review of Systems Constitutional: Positive for malaise/fatigue. Negative for chills, fever and weight loss. HENT: Negative. Eyes: Negative. Respiratory: Negative. Cardiovascular: Negative. Gastrointestinal: Positive for abdominal pain, constipation, diarrhea, heartburn, nausea and vomiting. Negative for blood in stool and melena. Genitourinary: Negative. Musculoskeletal: Negative. Skin: Negative. Neurological: Positive for headaches. Endo/Heme/Allergies: Negative. Psychiatric/Behavioral: Positive for depression and substance abuse. Negative for hallucinations, memory loss and suicidal ideas. The patient is nervous/anxious. The patient does not have insomnia. OBJECTIVE Vitals: Arrival Vitals Temp 12/17/21 1635 36.9 ??C (98.5 ??F) Pulse 12/17/21 1635 63 Resp 12/17/21 1635 18 BP 12/17/21 1635 106/62 SpO2 12/17/21 1635 100 % Temp src 12/17/21 2117 Tympanic Heart Rate Source 12/18/21 1317 Monitor Patient Position 12/17/21 2117 Sitting BP Location 12/17/21 2117 Right arm FiO2 (%) -- 24hr Min/Max: Temp Min: 36 ??C (96.8 ??F) Max: 37.2 ??C (98.9 ??F) Pulse Min: 50 Max: 78 BP Min: 96/61 Max: 145/96 Resp Min: 11 Max: 22 SpO2 Min: 95 % Max: 100 % Most Recent : Vitals: 12/18/21 1653 BP: 103/61 Pulse: 50 Resp: 15 Temp: 36.4 ??C (97.6 ??F) SpO2: 99% I/O this shift: In: 900 [I.V.:900] Out: - Intake/Output Summary (Last 24 hours) at 12/18/20211713 Last data filed at 12/18/2021 1630 Gross per 24 hour Intake 900 ml Output -- Net 900 ml Past Medical History: Diagnosis Date ??? Anxiety ??? Arthritis ??? Bipolar affect, depressed (CMS/HCC) ([facility]) ??? Cyclic vomiting syndrome ??? Depression ??? Headache, tension-type ??? Hypertension ??? Migraine ??? Stroke (CMS/HCC) ([facility]) ??? Weight loss Medications HOME MEDICATIONS : apixaban (ELIQUIS) 5 mg tablet atorvastatin (LIPITOR) 40 mg tablet clonazePAM (KlonoPIN) 0.5 mg tablet dicyclomine (BENTYL) 10 mg capsule escitalopram (LEXAPRO) 10 mg tablet flecainide (TAMBOCOR) 50 mg tablet hydrOXYzine (ATARAX) 25 mg tablet lubiprostone (AMITIZA) 24 mcg capsule metoprolol XL (TOPROL-XL) 25 mg extended release tablet ondansetron (ZOFRAN) [address] (PROTONIX) 40 mg EC tablet polyethylene glycol (MIRALAX) 17 gram/dose powder senna-docusate (PERICOLACE) 8.6-50 mg SUMAtriptan (IMITREX) 50 mg tablet venlafaxine XR (EFFEXOR-XR) 37.5 mg 24 hr capsule Current Facility-Administered Medications Medication Dose Route Frequency Provider Last Rate Last Admin ??? acetaminophen (TYLENOL) tablet 650 mg 650 mg oral Q4H PRN Germania Sorto MD ??? apixaban (ELIQUIS) tablet 5 mg 5 mg oral BID Joshua Pearson MD ??? atorvastatin (LIPITOR) tablet 40 mg 40 mg oral Daily Joshua Pearson MD ??? citalopram (CeleXA) tablet 10 mg 10 mg oral Daily Joshua Pearson MD 10 mg at 12/18/21 1711 ??? [START ON 12/19/2021] clonazePAM (KlonoPIN) tablet 0.5 mg 0.5 mg oral QAM Joshua Pearson MD ??? flecainide (TAMBOCOR) tablet 50 mg 50 mg oral BID Joshua Pearson MD ??? haloperidol (HALDOL) injection 2 mg 2 mg intramuscular Q6H PRN Germania Sorto MD ??? hydrOXYzine (VISTARIL) capsule 25 mg 25 mg oral TID PRN Naz Enriquez MD ??? lubiprostone (AMITIZA) capsule 24 mcg 24 mcg oral BID with meals (bkfst, dinner) Joshua Pearson MD ??? metoprolol XL (TOPROL-XL) extended release tablet 25 mg 25 mg oral Daily Joshua Pearson MD 25 mg at 12/18/211710 ??? nortriptyline (PAMELOR) capsule 25 mg 25 mg oral Nightly Germania Sorto MD ??? ondansetron ODT (ZOFRAN-ODT) disintegrating tablet 4 mg 4 mg oral Q6H PRN Germania Sorto MD Or ??? ondansetron (ZOFRAN) injection 4 mg 4 mg intravenous Q6H PRN Germania Sorto MD 4 mg at 12/18/21 0714 ??? ondansetron (ZOFRAN) tablet 4 mg 4 mg oral Q6H Joshua Pearson MD 4 mg at 12/18/211710 ??? pantoprazole DR (PROTONIX) extended release tablet 40 mg 40 mg oral Daily Joshua Pearson MD 40 mg at 12/18/211710 ??? polyethylene glycol (MIRALAX) packet 17 g 17 g oral Daily PRN Germania Sorto MD ??? polyethylene glycol (MIRALAX) packet 17 g 17 g oral Nightly Joshua Pearson MD ??? [START ON 12/19/2021] senna-docusate (PERICOLACE) 8.6-50 mg per tablet 2 tablet 2 tablet oral Nightly Joshua Pearson MD ??? sodium chloride 0.9% flush 0.5-20 mL 0.5-20 mL intra-catheter Q8H MERON Germania Sorto MD 10 mL at 12/18/211646 ??? sodium chloride 0.9% flush 0.5-20 mL 0.5-20 mL intra-catheter PRN Germania Sorto MD ??? sodium chloride 0.9% infusion 50 mL/hr intravenous Continuous Germania Sorto MD 50 mL/hr at 12/18/211646 50 mL/hr at 12/18/211646 ??? SUMAtriptan (IMITREX) tablet 50 mg 50 mg oral Once PRN Joshua Pearson MD ??? venlafaxine XR (EFFEXOR-XR) extended release capsule 37.5 mg 37.5 mg oral Daily Joshua Pearson MD PRN Medications Medication Dose Route Frequency Last Admin ??? acetaminophen (TYLENOL) tablet 650 mg 650 mg oral Q4H PRN ??? haloperidol (HALDOL) injection 2 mg 2 mg intramuscular Q6H PRN ??? hydrOXYzine (VISTARIL) capsule 25 mg 25 mg oral TID PRN ??? ondansetron ODT (ZOFRAN-ODT) disintegrating tablet 4 mg 4 mg oral Q6H PRN Or ??? ondansetron (ZOFRAN) injection 4 mg 4 mg intravenous Q6H PRN 4 mg at 12/18/21 0714 ??? polyethylene glycol (MIRALAX) packet 17 g 17 g oral Daily PRN ??? sodium chloride 0.9% flush 0.5-20 mL 0.5-20 mL intra-catheter PRN ??? SUMAtriptan (IMITREX) tablet 50 mg 50 mg oral Once PRN sodium chloride 0.9%, 50 mL/hr, Last Rate: 50 mL/hr (12/18/211646) Physical Exam Vitals and nursing note reviewed. Constitutional: General: She is not in acute distress. Appearance: Normal appearance. She is well-developed. She is not toxic-appearing or diaphoretic. Comments: Patient reports feeling nauseous, and weak HENT: Head: Normocephalic and atraumatic. Right Ear: External ear normal. Left Ear: External ear normal. Nose: Nose normal. Mouth/Throat: Mouth: Mucous membranes are moist. Pharynx: Oropharynx is clear. No oropharyngeal exudate. Eyes: General: No scleral icterus. Extraocular Movements: Extraocular movements intact. Conjunctiva/sclera: Conjunctivae normal. Pupils: Pupils are equal, round, and reactive to light. Cardiovascular: Rate and Rhythm: Normal rate and regular rhythm. Pulses: Normal pulses. Heart sounds: Normal heart sounds. No murmur heard. No friction rub. No gallop. Pulmonary: Effort: Pulmonary effort is normal. No respiratory distress. Breath sounds: Normal breath sounds. No stridor. No wheezing, rhonchi or rales. Chest: Chest wall: No tenderness. Abdominal: General: Abdomen is flat. Bowel sounds are normal. There is no distension or abdominal bruit. Thereare no signs of injury. Palpations: Abdomen is soft. There is no fluid wave, mass or pulsatile mass. Tenderness: There is generalized abdominal tenderness. There is no right CVA tenderness, left CVA tenderness, guarding or rebound. Hernia: No hernia is present. Musculoskeletal: General: No swelling or tenderness. Normal range of motion. Cervical back: Normal range of motion and neck supple. Right lower leg: No edema. Left lower leg: No edema. Skin: General: Skin is warm. Capillary Refill: Capillary refill takes less than 2 seconds. Coloration: Skin is not jaundiced. Findings: No erythema or rash. Neurological: General: No focal deficit present. Mental Status: She is alert and oriented to person, place, and time. Mental status is at baseline. Psychiatric: Mood and Affect: Mood normal. Behavior: Behavior normal. Lab Recent Results (from the past 24 hour(s)) CBC with auto differential Collection Time: 12/17/21 9:12 PM Result Value Ref Range WBC 14.3 (H) 3.8 - 9.9 K/cumm Hgb 11.7 (L) 11.9 - 15.5 g/dL Hct 36.2 35.6 - 45.5 % Plt 320 150 - 400 K/cumm MPV 10.6 9.1 - 12.3 fL RBC 4.38 3.90 - 5.20 M/cumm MCV 82.6 81.3 - 96.4 fL MCH 26.7 (L) 27.1 - 33.3 pg MCHC 32.3 32.3 - 35.7 g/dL RDW CV 15.5 (H) 11.1 - 14.9 % RDW SD 46.9 35.7 - 48.1 fL NRBC abs 0.00 0.00 - 0.01 K/cumm Comprehensive metabolic panel Collection Time: 12/17/21 9:12 PM Result Value Ref Range Sodium 140 135 - 145 mmol/L Potassium, pl 4.0 3.3 - 4.9 mmol/L Chloride 103 97 - 110 mmol/L CO2 25 22 - 32 mmol/L Anion gap 12 2 - 15 mmol/L BUN 9 8 - 25 mg/dL Creatinine 0.70 0.60 - 1.10 mg/dL Glucose 101 70 - 199 mg/dL Calcium 9.7 8.5 - 10.3 mg/dL Bilirubin, total 0.3 0.1 - 1.2 mg/dL Protein, pl 7.7 6.5 - 8.5 g/dL Albumin 4.7 3.5 - 5.0 g/dL Alk phos 107 40 - 130 Units/L ALT 10 7 - 45 Units/L AST 22 10 - 45 Units/L Lipase Collection Time: 12/17/21 9:12 PM Result Value Ref Range Lipase 38 10 - 99 Units/L Differential, auto Collection Time: 12/17/21 9:12 PM Result Value Ref Range Neutrophil abs 11.4 (H) 1.7 - 6.5 K/cumm Imm gran abs 0.0 0.0 - 0.1 K/cumm Lymphocyte abs 2.1 0.8 - 3.3 K/cumm Monocyte abs 0.7 0.2 - 0.8 K/cumm Eosinophil abs 0.1 0.0 - 0.5 K/cumm Basophil abs 0.0 0.0 - 0.1 K/cumm Neutrophil pct 79.7 % Imm gran pct 0.3 % Lymphocyte pct 14.4 % Monocyte pct 5.0 % Eosinophil pct 0.3 % Basophil pct 0.3 % eGFR Collection Time: 12/17/21 9:12 PM Result Value Ref Range eGFR 103 mL/min/1.73 m2 Urinalysis reflex to microscopic and culture Urine, clean voided Collection Time: 12/17/21 9:25 PM Specimen: Urine, clean voided Result Value Ref Range Color, ur Yellow Yellow Clarity, ur Clear Clear Specific gravity, ur 1.010 1.003 - 1.030 pH, urine 6.5 Protein, ur ql Negative Negative Glucose, ur ql Negative Negative Ketones, ur Negative Negative Bilirubin, ur Negative Negative Blood, ur Negative Negative Urobilinogen, ur <2.0 <2.0 mg/dL Nitrite, ur Negative Negative Leukocyte esterase, ur Negative Negative UA reflex comment Reflex conditions for microscopic UA and culture not met. Drugs of Abuse Screen, Urine without Confirmation Collection Time: 12/17/21 9:25 PM Result Value Ref Range Amphetamine, ur Not Detected CutOff 500ng/mL Barbiturates, ur Not Detected CutOff 200ng/mL Benzodiazepines, ur Not Detected CutOff 100ng/mL Cannabinoids, ur Detected (A) CutOff 50 ng/mL Cocaine, ur Not Detected CutOff 150ng/mL Fentanyl, Ur Not Detected Cutoff 1 ng/mL Methadone, ur Not Detected CutOff 300ng/mL Opiates, ur Not Detected CutOff 300ng/mL Oxycodone, ur Not Detected CutOff 100ng/mL Phencyclidine, ur Not Detected CutOff 25 ng/mL Urine Creatinine 101 mg/dL Lactate Collection Time: 12/17/21 11:35 PM Result Value Ref Range Lactate 1.0 0.7 - 2.0 mmol/L Influenza A/B, RSV, and COVID-19 PCR Nasopharyngeal Collection Time: 12/18/21 1:05 PM Specimen: Nasopharyngeal Result Value Ref Range COVID-19 RNA Negative Negative Influenza A RNA Negative Negative Influenza B RNA Negative Negative RSV RNA Negative Negative Recent Labs Lab Units 12/17/21 2112 CREATININE mg/dL 0.70 No results found for: TROPONINT Recent Labs Lab Units 12/17/21 2335 LACTATE mmol/L [address] Abdomen Pelvis W Contrast Result Date: 12/18/2021 Narrative: EXAM DESCRIPTION: CT ABDOMEN PELVIS W CONTRAST REASON FOR STUDY: Abdominal infection suspected 51 y.o. female with h/o irritable bowel syndrome, cyclical vomiting, presents for abdominal pain that is not her typical abdominal pain. The patient had been feeling well for the past 2 weeks has only been eating 1 meal a day has lost 7 lb per her report (per GI note had gained 2 lb from her previous visit) saw her GI doctor yesterday who prescribed a new med but the patient has not startedyet, she has not yet picked it up from the pharmacy. Today, she went to the bathroom, she was having some low abdominal pain and thought that she needed to have a bowel movement, sat on the toilet, di d not have a bowel movement, but started sweating, feeling lightheaded like she was going to pass out, put a cool washcloth on her neck and laid down in bed. Then the pain traveled into her right-sided abdomen, was severe, stabbing without clear aggravating or relieving factors, but felt similar towhen she had intussusception the past which is why she presented to the emergency department. She has been nauseated. No vomiting, no measured fever, no change in bowel habits. Last bowel movement was 2 days ago but she goes in between having diarrhea and constipation. No dysuria frequency urgency,no vaginal symptoms, his history of uterine ablation and is postmenopausal. TECHNIQUE: CT scan of the abdomen and pelvis performed with intravenous and without oral contrast using helical scanning technique with dynamic intravenous contrast injection. Reconstructed coronal and sagittal MPR images reviewed. All images stored on PACS. Automated exposure control was used as a dose optimization technique for this examination. CONTRAST TYPE/DOSE: 100mL of IOVERSOL 320 MG IODINE/ML INTRAVENOUS SOLUTION injected via intravenous COMPARISON: 09/09/2021 FINDINGS: Motion artifact degrades images limiting interpretation evaluation of this examination. LOWER CHEST: No significant pulmonary abnormalities. No effusion. Small sliding hiatal hernia. LIVER: Focus of contrast enhancement in the right carey liver is not seen on prior examination, likely related to portal venous shunting, and phase of contrast. GALLBLADDER: Surgically absent BILE DUCTS: No intrahepatic or extrahepatic ductal dilatation. SPLEEN: Normal size. No focal lesions. PANCREAS: No identified cystic or solid masses. No significant c alcifications. No adjacent inflammation or peripancreatic fluid collections. Pancreatic duct not dilated. ADRENALS: Normal. KIDNEYS/URINARY TRACT: Kidneys enhance symmetrically. Right upper pole renal lesion is degraded by motion artifact and better evaluated on prior CT 09/09/2021. No hydronephrosis. Mild urinary bladder wall thickening. GI: New nodular soft tissue densities the right medial gluteal fold (image 147). For reference, there is a 1.1 cm nodular soft tissue density in the medial right gluteal fold (image 147). Stomach and small bowel are normal in course and caliber without evidence of obstruction. The colon is normal. The appendix is normal. Tiny fat containing periumbilical he rnia is seen. PERITONEUM: No ascites or free air. RETROPERITONEUM: The portal venous system is poorly opacified due to phase of contrast. The proximal superior mesenteric artery is patent. There is areplaced right hepatic artery. REPRODUCTIVE: No significant abnormality. VASCULATURE: No abdominal aortic aneurysm. MUSCULOSKELETAL: Scoliosis. Grade 1 anterolisthesis of L4 on L5. Mild multilevel degenerative disc disease of the lumbar spine. Bilateral facet arthropathy. OTHER: No other abnormality. IMPRESSION: 1. Mild urinary bladder wall thickening. Recommend clinical correlation with urinalysis to evaluate for cystitis. 2. New, nodular soft tissue densities in the right medial gluteal fold.Infectious etiology cannot be excluded. Recommend clinical correlation with physical examination. THIS IS AN ELECTRONICALLY VERIFIED FINAL REPORT 12/18/2021 1:07 AM - Electronically signed by Parmjit Herrera M.D. BB: BÁRBARA Report ID: [id number] Reading Location: [place] [id number] Microbiology 12/18/21 1355 Influenza A/B, RSV, and COVID-19 PCR Nasopharyngeal Collected: 12/18/21 1305 Final result Specimen: Nasopharyngeal COVID-19 RNA Negative Influenza B RNA Negative Influenza A RNA Negative RSV RNA Negative 12/17/212131 Urinalysis reflex to microscopic and culture Urine, clean voided Collected: 12/17/212124 Final result Specimen: Urine, clean voided Color, ur Yellow Bilirubin, ur Negative Clarity, ur Clear Blood, ur Negative Specific gravity, ur 1.010 Urobilinogen, ur <2.0 mg/dL pH, urine 6.5 Nitrite, ur Negative Protein, ur ql Negative Leukocyte esterase, ur Negative Glucose, ur ql Negative UA reflex comment Reflex conditions for microscopic UA and culture not met. Ketones, ur Negative ASSESSMENT AND PLAN: 12/18/21 Pt stable at this time, complaining of some abdominal with nausea and vomiting. Most likely cyclic vomiting versus hyperemesis from chronic marijuana use or combo of both. - UDS positive for cannabinoid, patient admits to daily use. - GI on consult EGD unremarkable - CT abdomen unremarkable, did indicate nodules in the gluteal fold Principal Problem: Nausea and vomiting, unspecified vomiting type Active Problems: Cyclic vomiting syndrome Irritable bowel syndrome with both constipation and diarrhea Hypertension Atrial fibrillation (CMS/HCC) ([facility]) Migraine headache Abdominal pain, generalized Bipolar affect, depressed ([facility]) ([facility]) Marijuana use Resolved Problems: No resolved hospital problems. Cyclic vomiting syndrome Assessment & Plan Patient has history of cyclic vomiting syndrome, and chronic marijuana use. Unclear as to what could be the cause as she does report recent marijuana use. Patient reports allergy to Compazine, Phenergan, Reglan. Previously tolerated as home medications and received in hospital. Unclear as if these are real allergies. EGD today: Unremarkable - UDS screen positive for cannabinoids. - p.r.n. Haldol, Zofran, hydroxyzine - continue Protonix - GI on consult appreciate recommendations Marijuana use Assessment & Plan Patient admits to daily marijuana use. Possibly contributing to cyclic vomiting. - UDS: Positive for cannabinoid Bipolar affect, depressed ([facility]) ([facility]) Assessment & Plan Patient has history of [...] cyclic vomiting, will also help with agitation/anxiety Abdominal pain, generalized Assessment & Plan Patient reports generalized abdominal pain with multiple [...] hydroxyzine, Zofran, MiraLax, - GI on consult: Migraine headache Assessment & Plan Started home Topamax Atrial fibrillation ([facility]) ([facility]) Assessment & Plan Patient has history of AFib. Currently normal sinus rhythm. - Anticoagulation: Eliquis 5 mg b.i.d. - Rate control: Metoprolol XL 25 mg q.day, flecainide 50 mg b.i.d. - Pt on telemetry at this time - will continue to monitor Hypertension Assessment & Plan Have reviewed 24 hour blood pressures and stable at this time. BP: (96-145)/(57-96) 100/61 - will continue home blood pressure medications metoprolol XL 25 mg q.day Irritable bowel syndrome with both constipation and diarrhea Assessment & Plan She is currently denying any diarrhea but reports constipation. Patient states she was recently seen by GI who started lubiprostone 24 b.i.d.. She has not started this medication. - Started home lubiprostone, Miralax and Pericolace - continue Bentyl - GI on consult Family communication:12/18/21 None Code: Full FEN: Patient started on IV fluids, electrolytes within normal limits, nutritional supplements as needed Diet: Adult clear liquid GI prophylaxis: Protonix DVT prophylaxis: Eliquis Precautions: Consults: GI Disposition: Sarahy Mays is a 51 y.o. female admitted for cyclic vomiting on 12/17/2021. Waiting for GI workup including EGD and discharge when released by a GI. Anticipate discharge in 1-2 days. Portions of the record may have been created with voice recognition software. Occasional wrong-word or '[id number]' substitutions may have occurred due to the inherent limitations of voice recognition software. Read the chart carefully and recognize, using context, where substitutions have occurred. Joshua Pearson MD Family Medicine PGY-1 [facility] Date of Service: 12/18/2021 Cosigned by Naz Enriquez MD at 12/18/2021 6:53 PM CDT Associated attestation - Naz Enriquez MD - 12/18/2021 6:53 PM CDT I personally saw and examined the patient on 12/18/2021 and discussed the case with the resident. Ihave reviewed the resident's note and agree with the content and plan as written. Additional information as noted below. Patient seen this morning while still in the emergency room. Patient with recurrent problems of cyclical vomiting. Doing better at the time of visit but had still had episodes of vomiting while in the emergency room. Patient regularly seen by GI. On exam, no acute distress. Heart S1-S2. Lungs clear bilaterally. Abdomen soft and nontender. Extremities without edema. Appreciate help from GI with patient now having had EGD. Continue PPI. Continue other treatments as outlined in resident physician history and physical. Anticipated length of stay: Greater than 2 midnights Total time spent in history and physical: 50 minutes MDM: High complexity Naz Enriquez MD Director of Family Medicine Inpatient Services Sales Representative [employer], [facility] documented in this encounter Procedure Notes * Germania Sorto MD - 12/18/2021 2:14 PM CDTAssociated Order(s): EGD [facility] Patient Name: Sarahy Mays Procedure Date: 12/18/2021 2:14 PM Date of : 1970 Admit Type: Outpatient Age: 51 Gender: Female Attending MD: Germania Sorto M.D. Room: [facility] ENDOSCOPY ROOM 1 Note Status: Finalized Patient Profile: This is a 51 year old female. Patient admitted with nausea vomiting. She has recurrent episode of nausea vomiting attributed to cyclic vomiting syndrome. She smokes marijuana Procedure: Upper GI endoscopy Indications: Nausea with vomiting Referring MD: Parmjit Ewing M.D. Providers: Germania Sorto M.D. Impression: - Normal examined duodenum. - Erythematous mucosa in the antrum likely mild chronic gastritis. Biopsied. - Mild reflux esophagitis Recommendation: - Await pathology results. - Use Protonix (pantoprazole) 40 mg PO daily. - Start clear liquid diet and slowly advance diet. - Add nortriptyline at night. Medicines: Monitored Anesthesia Care Complications: No immediate [...] passed under direct vision. The Endoscope [id number]-H190 [id number] was introduced through the mouth, and advanced to the second part of duodenum. The upper GI endoscopy was accomplished without difficulty. The patient tolerated the procedure well. Findings: The examined duodenum was normal. Mucosal pattern normal. Diffuse moderately erythematous mucosa without bleeding was found in the gastric antrum suggestive of mild chronic gastritis. No ulcers. Biopsies were taken with a cold forceps for histology. The gastric body and fundus were unremarkable. Retroflexion view in the stomach was unremarkable . The examined esophagus was normal. The GE junction noted with mild reflux esophagitis Electronically signed by Germania Sorto M.D. Germania Sorto M.D. 12/18/2021 4:22:58 PM Number of Addenda: 0 Note Initiated On: 12/18/2021 2:14 PM Procedure Code(s): --- Professional --- 83769, Esophagogastroduodenoscopy, flexible, transoral; with biopsy, single or multiple Diagnosis Code(s): --- Professional --- K31.89, Other diseases of stomach and duodenum R11.2, Nausea with vomiting, unspecified CPT copyright 2020 [employer]. All rights reserved. The codes documented in this report are preliminary and upon cost estimator review may be revised to meet current compliance requirements. Recognized by the [employer] for promoting quality in endoscopy documented in this encounter Nursing Notes * Mary Sheldon RN - 12/20/2021 10:33 AM CDT was contacted/ pt's request. Pt would like to be out before noon, her only ride has to be at work by 1400. Pt stated I have no one else to call so I can get a ride home * Mary Sheldon RN - 12/20/2021 10:[address] Enriquez was notified the pt's sensitivities are back. documented in this encounter ED Notes * Matilde Knowles MD - 12/17/2021 10:55 PM CDT Triage Chief Complaint: Chief Complaint Patient presents with ??? Abdominal Pain ??? Vomiting ??? Nausea Portions of the record may have been created with voice recognition software. Occasional wrong-word or '[id number]' substitutions may have occurred due to the inherent limitations of voice recognition software. Read the chart carefully and recognize, using context, where substitutions have occurred. H&P: Sarahy Mays is a 51 y.o. female with h/o irritable bowel syndrome, cyclical vomiting, presents for abdominal pain that is not her typical abdominal pain. The patient had been feeling well for the past 2 weeks has only been eating 1 meal a day has lost 7 lb per her report (per GI note had gained 2 lb from her previous visit) saw her GI doctor yesterday who prescribed a new med but the patient has not started yet, she has not yet picked it up from the pharmacy. Today, she went to the bathroom, she was having some low abdominal pain and thought that she needed to have a bowel movement, saton the toilet, did not have a bowel movement, but started sweating, feeling lightheaded like she was going to pass out, put a cool washcloth on her neck and laid down in bed. Then the pain traveled into her right-sided abdomen, was severe, stabbing without clear aggravating or relieving factors, but felt similar to when she had intussusception the past which is why she presented to the emergency department. She has been nauseated. No vomiting, no measured fever, no change in bowel habits. Last bowel movement was 2 days ago but she goes in between having diarrhea and constipation. No dysuria frequency urgency, no vaginal symptoms, his history of uterine ablation and is postmenopausal. ROS: At least 10 systems reviewed and otherwise negative except as in the HPI. Past Medical History: Diagnosis Date ??? Anxiety ??? Arthritis ??? Bipolar affect, depressed (CMS/HCC) ([facility]) ??? Cyclic vomiting syndrome ??? Depression ??? Headache, tension-type ??? Hypertension ??? Migraine ??? Stroke (CMS/HCC) ([facility]) ??? Weight loss Past Surgical History: Procedure Laterality Date ??? ABDOMINAL SURGERY 2013 hiatel hernia repair ??? ARTHROSCOPIC SURGERY Left 1984,1994,2001 knee ??? SECTION 1992 ??? CHOLECYSTECTOMY ??? ENDOMETRIAL ABLATION ??? HERNIA REPAIR ??? TUBAL LIGATION HOME MEDICATIONS : apixaban (ELIQUIS) 5 mg tablet atorvastatin (LIPITOR) 40 mg tablet clonazePAM (KlonoPIN) 0.5 mg tablet dicyclomine (BENTYL) 10 mg capsule escitalopram (LEXAPRO) 10 mg tablet flecainide (TAMBOCOR) 50 mg tablet hydrOXYzine (ATARAX) 25 mg tablet lubiprostone (AMITIZA) 24 mcg capsule metoprolol XL (TOPROL-XL) 25 mg extended release tablet ondansetron (ZOFRAN) [address] (PROTONIX) 40 mg EC tablet polyethylene glycol (MIRALAX) 17 gram/dose powder senna-docusate (PERICOLACE) 8.6-50 mg SUMAtriptan (IMITREX) 50 mg tablet venlafaxine XR (EFFEXOR-XR) 37.5 mg 24 hr capsule Allergies Allergen Reactions ??? Compazine [Prochlorperazine] Other (See comments) made me feel weird, odd also agitation ??? Phenergan [Promethazine] Agitation ??? Reglan [Metoclopramide] Other (See comments) Had TIA after trying. ??? Zithromax [Azithromycin] Stomach upset Nursing Notes Reviewed. Physical Exam: ED Triage Vitals Temp Pulse Resp BP SpO2 12/17/21 1635 12/17/21 1635 12/17/21 1635 12/17/21 1635 12/17/21 1635 36.9 ??C (98.5 ??F) 63 18 106/62 100 % Temp src Heart Rate Source Patient Position BP Location FiO2 (%) 12/17/212116 -- 12/17/21211612/17/212116 -- Tympanic Sitting Right arm GENERAL APPEARANCE: Awake and alert. No acute distress. HEAD: Atraumatic. EYES: Sclera anicteric. EOMI. ENT: Tolerates saliva. NECK: Supple. Trachea midline. HEART: RRR. Radial pulses 2+. LUNGS: Respirations unlabored. CTAB. ABDOMEN: Soft. Non-tender. No guarding or rebound. EXTREMITIES: No acute deformities. SKIN: Warm and dry. NEUROLOGICAL: No gross facial drooping. Moves all 4 extremities spontaneously. Normal speech and mental status. No ataxia noted. PSYCHIATRIC: Normal mood. I have reviewed and interpreted all of the currently available lab results from this visit (if applicable): Labs Reviewed CBC WITH AUTO DIFFERENTIAL - Abnormal Result Value WBC 14.3 (*) Hgb 11.7 (*) Hct 36.2 Plt 320 MPV 10.6 RBC 4.38 MCV 82.6 MCH 26.7 (*) MCHC 32.3 RDW CV 15.5 (*) RDW SD 46.9 NRBC abs 0.00 DIFFERENTIAL AUTO - Abnormal Neutrophil abs 11.4 (*) Imm gran abs 0.0 Lymphocyte abs 2.1 Monocyte abs 0.7 Eosinophil abs 0.1 Basophil abs 0.0 Neutrophil pct 79.7 Imm gran pct 0.3 Lymphocyte pct 14.4 Monocyte pct 5.0 Eosinophil pct 0.3 Basophil pct 0.3 URINALYSIS AND REFLEX TO MICROSCOPIC AND CULTURE Color, ur Yellow Clarity, ur Clear Specific gravity, ur 1.010 pH, urine 6.5 Protein, ur ql Negative Glucose, ur ql Negative Ketones, ur Negative Bilirubin, ur Negative Blood, ur Negative Urobilinogen, ur <2.0 Nitrite, ur Negative Leukocyte esterase, ur Negative UA reflex comment Value: Reflex conditions for microscopic UA and culture not met. Narrative: Urine pH is affected by diet, medications, systemic acid-base disturbances, and renal tubular function. pH may affect urinary stone formation. For example, urine pH below 6.0 may help reduce the tendency for calcium phosphate stones and pH greater than 6.0 may reduce the tendency for uric acid stone formation. Source: [place].Last revised 09-10-2017 COMPREHENSIVE METABOLIC PANEL Sodium 140 Potassium, pl 4.0 Chloride 103 CO2 25 Anion gap 12 BUN 9 Creatinine 0.70 Glucose 101 Calcium 9.7 Bilirubin, total 0.3 Protein, pl 7.7 Albumin 4.7 Alk phos 107 ALT 10 AST 22 LIPASE Lipase 38 EGFR eGFR 103 LACTATE Lactate 1.0 DRUGS OF ABUSE SCREEN, URINE WITHOUT CONFIRMATION Radiographs (if obtained): Report Reviewed: CT Abdomen Pelvis W Contrast Final Result ED course/MDM: Vitals: 12/17/21 1635 12/17/21 2117 12/18/21 0115 BP: 106/62 134/89 BP Location: Right arm Patient Position: Sitting Pulse: 63 76 67 Resp: 18 18 14 Temp: 36.9 ??C (98.5 ??F) 37.2 ??C (98.9 ??F) TempSrc: Tympanic SpO2: 100% 100% 100% Weight: 64 kg (141 lb) ED Course as of 12/18/21 0510 Time: 12/17 2236 Value: WBC(!): 14.3 Comment: Nonspecific and nondiagnostic By: Matilde Knowles MD Time: 12/17 2236 Value: Hgb(!): 11.7 Comment: Baseline By: Matilde Knowles MD Time: 12/17 2257 Comment: Patient is asking if she can have her home flecainide and apixaban. Will hold apixaban until CT scan results return just in case of surgical emergency, will give patient's home dose of flecainide. She was given Zofran in triage in feels somewhat improved at this time. UA not consistent with UTI. Electrolytes, renal and liver function all reassuring. Slight leukocytosis which is nonspecific. She denies any other symptoms such as runny nose cough shortness of breath chest pain rash. Because her symptoms to her feel like previous episode of intussusception, it is not her typical abdominal pain, was more sudden onset and severe as well as migratory, will obtain advanced imaging. By: Matilde Knowles MD Time: 12/18 125 Value: CT Abdomen Pelvis W Contrast Comment: IMPRESSION: ?? 1. Mild urinary bladder wall thickening. Recommend clinical correlation with urinalysis to evaluate for cystitis. 2. New, nodular soft tissue densities in the right medial gluteal fold. Infectious etiology cannot be excluded. Recommend clinical correlation with physical examination. ?? By: Matilde Knowles MD Time: 12/18 4988 Comment: Patient pulled out her IV. She is not having nausea vomiting. Will give IM Zofran, also discussed rectal Phenergan, she gets extrapyramidal side effects with multiple antiemetics. Non IV route of administration much less likely to cause extrapyramidal side effects. Additionally, medicationside effect has been miss classified in this patient's case as a allergy when it is not actually true allergy. In this case it is likely that the benefit outweighs the risk. After reading in reviewing the CT scan report, a thorough inspection and evaluation of the patient's gluteal fold and perirectal and rectal area were examined with male nurse hand heel seat fitter. No abnormal finding. No skin changes. No nodular density identified. No abscess or cellulitis or induration or fluctuance appreciated. No pain on exam. By: Matilde Knowles MD Time: 12/18 4196 Comment: At that patient had improved, however after her CT scan was done when I had gone over her results she started throwing up again. Have unable to control her symptoms, at this point it looks like she may require admission to the hospital for intractable vomiting. By: Matilde Knowles MD Time: 12/18 9742 Comment: Dr. Benavides accepts patient for admission By: Matilde Knowles MD Clinical Impression: 1. Nausea and vomiting, unspecified vomiting type 2. Abdominal pain Disposition: Observation for intractable vomiting (Please note that portions of this note may have been completed with a voice recognition program. [employer] errors occur. Please contact me for any clarification.) Matilde Knowles MD 12/18/21510 * Natalia Delacruz RN - 12/17/2021 4:33 PM CDT Patient here for evaluation of abdominal pain, nausea, and vomiting x2 days. Patient seen by her doctor yesterday for this and was prescribed a new medication, but patient has not been able to get itfilled. documented in this encounter Miscellaneous Notes * Plan of Care - Mary Sheldon RN - 12/20/2021 12:10 PM CDT Goals: Clinical Goals for the Shift: VSS, monitor pain and nausea, remain free from falls and injuries, discharge today. Summary: this shift pt had no complaints of pain/nausea. Pt remained free of falls and injuries. Pthad all her scheduled medications. MD was contacted/pt request. Pt desired to leave before noon, since only ride had to be at work by 1400. Pt had no IV during this shift. Reviewed discharge information with pt, pt discharged to home, pt taken down to ems driver parking where daughter was waiting for her. Purse was taken from locked cabinet and given to pt. * Plan of Care - Jovon Rios RN - 12/20/2021 5:38 AM CDT Goals: Clinical Goals for the Shift: Patient will tolerate food and fluid. Patient will remain safe and free from falls. patient will have increased comfort. Summary: Rested well overnight. VSS. No n/v noted. Tolerating fluids well. No falls or injuries occurred. * Plan of Care - Mary Tobin RN - 12/19/2021 5:53 PM CDT Problem: Health Behavior: Goal: Understanding of discharge needs will improve Outcome: Not Progressing Problem: Activity: Goal: Risk for activity intolerance will decrease Outcome: Not Progressing Problem: Lack of Knowledge: Goal: Knowledge of diagnostic tests will improve Outcome: Not Progressing Goal: Knowledge of safety precautions will improve Outcome: Not Progressing Goal: Knowledge of the prescribed therapeutic regimen will improve Outcome: Not Progressing Problem: Health Behavior: Goal: Ability to state signs and symptoms to report to health care provider will improve Outcome: Not Progressing Problem: Physical Regulation: Goal: Ability to maintain clinical measurements within normal limits will improve Outcome: Not Progressing Problem: Infection Risk: Goal: Will remain free from infection Outcome: Not Progressing Problem: Safety: Goal: Ability to remain free from injury will improve Outcome: Not Progressing Goal: Will remain free from falls Outcome: Not Progressing Problem: Self-Care: Goal: Ability to participate in self-care as condition permits will improve Outcome: Not Progressing Problem: Sensory: Goal: Pain level will decrease Outcome: Not Progressing Goals: Clinical Goals for the Shift: Patient will tolerate food and fluid. Patient will remain safe and free from falls. patient will have increased comfort. Summary: Patient tolerated food and fluid but patient ate a few bites at meal time. Patient states no feeling of nausea. Patient has been up ambulating the trevino this evening multiple times. Patient has been safe and free from falls. Patient has spent some time in the chair and patient has been moreengaging. * Plan of Care - Deedee Camacho RN - 12/19/2021 5:45 AM CDT Goals: Clinical Goals for the Shift: VSS. Monitor pain & nausea. No falls/injuries. Summary: VSS. Pt has been resting in bed tonight with no complaints of pain. Zofran given for nausea. Pt independent to bathroom, no diarrhea tonight. No falls/injuries. Call light within reach and pt uses appropriately. * Assessment & Plan Note - Joshua Pearson MD - 12/18/2021 4:57 PM CDT Associated Problem(s): Migraine headache Started home Topamax * Assessment & Plan Note - Joshua Pearson MD - 12/18/2021 4:56 PM CDT Associated Problem(s): Marijuana use Patient admits to daily marijuana use. Possibly contributing to cyclic vomiting. Have advised pt tostop smoking. - UDS: Positive for cannabinoid * Assessment & Plan Note - Joshua Pearson MD - 12/18/2021 4:46 PM CDT Associated Problem(s): Bipolar affect, depressed (HCC) Patient has history of bipolar disease depression [...] cyclic vomiting, will also help with agitation/anxiety * Assessment & Plan Note - Joshua Pearson MD - 12/18/2021 4:44 PM CDT Associated Problem(s): Cyclic vomiting syndrome Patient has history of cyclic vomiting syndrome, [...] effects and interactions with other medications. Says lian take tonight. - UDS screen positive for cannabinoids: Have advised to stop - Nortriptyline per GI - p.r.n. Haldol, Zofran, hydroxyzine - Protonix - Diet progression as tolerated - GI on consult appreciate recommendations * Assessment & Plan Note - Joshua Pearson MD - 12/18/2021 4:41 PM CDT Associated Problem(s): Abdominal pain, generalized Patient reports generalized abdominal pain with multiple [...] hydroxyzine, Zofran, MiraLax, - GI on consult: * Assessment & Plan Note - Joshua Pearson MD - 12/18/2021 4:38 PM CDT Associated Problem(s): Atrial fibrillation (CMS/HCC) (HCC) Patient has history of AFib. Currently normal sinus rhythm. - Anticoagulation: Eliquis 5 mg b.i.d. - Rate control: Metoprolol XL 25 mg q.day, flecainide 50 mg b.i.d. - Pt on telemetry at this time - will continue to monitor * Assessment & Plan Note - Joshua Pearson MD - 12/18/2021 4:37 PM CDT Associated Problem(s): Hypertension Have reviewed 24 hour blood pressures and stable at this time. BP: (96-145)/(57-96) 100/61 - will continue home blood pressure medications metoprolol XL 25 mg q.day * Assessment & Plan Note - Joshua Pearson MD - 12/18/2021 4:33 PM CDT Associated Problem(s): Irritable bowel syndrome with both constipation and diarrhea She is currently denying any diarrhea but reports constipation. Patient states she was recently seen by GI who started lubiprostone 24 b.i.d.. She has not started this medication. - Started home lubiprostone, Miralax and Pericolace - continue Bentyl - GI on consult * Perioperative Nursing Note - Destinee Mejia RN - 12/18/2021 4:[address] Sorto spoke with Patient regarding today's procedure. He recommends staying on Protonix daily and nortriptyline in the evening. She is to remain on a clear liquid diet and advance as tolerated. Report called to Mary Tobin RN/U. She is being transported back to [facility]/Room 3606 via wheelchair. * Plan of Care - Mary Tobin RN - 12/18/2021 1:50 PM CDT Problem: Health Behavior: Goal: Understanding of discharge needs will improve Outcome: Not Progressing Problem: Activity: Goal: Risk for activity intolerance will decrease Outcome: Not Progressing Problem: Lack of Knowledge: Goal: Knowledge of diagnostic tests will improve Outcome: Not Progressing Goal: Knowledge of safety precautions will improve Outcome: Not Progressing Goal: Knowledge of the prescribed therapeutic regimen will improve Outcome: Not Progressing Problem: Health Behavior: Goal: Ability to state signs and symptoms to report to health care provider will improve Outcome: Not Progressing Problem: Physical Regulation: Goal: Ability to maintain clinical measurements within normal limits will improve Outcome: Not Progressing Problem: Infection Risk: Goal: Will remain free from infection Outcome: Not Progressing Problem: Safety: Goal: Ability to remain free from injury will improve Outcome: Not Progressing Goal: Will remain free from falls Outcome: Not Progressing Problem: Self-Care: Goal: Ability to participate in self-care as condition permits will improve Outcome: Not Progressing Problem: Sensory: Goal: Pain level will decrease Outcome: Not Progressing Goals: Summary: Patient admit to room 3606 for ongoing assessment and testing for complaints of abd pain with nausea and vomiting. Patient states she alos had diarrhea. Patient instructed how to reach the nurse and how to operate the TV. Patient instructed to call for trips to the bathroom should she feelunstable. documented in this encounter Plan of Treatment Upcoming Encounters Date Type Department Care Team (Latest Contact Info) Description 09/07/2024 8:30 AM REGIONAL DRIVER Hospital Encounter [facility] [address] [place] [phone] Forest Catherine MD [address] [place] [address] 09/07/2024 8:30 AM REGIONAL DRIVER - 09/07/2024 9:00 AM REGIONAL DRIVER Surgery [facility] [address] [place] [phone] Forest Catherine MD [address] [place] [address] EGD w/Endo Flip & YI placement Scheduled Procedures Name Priority Associated Diagnoses Date/Ti me ESOPHAGOGASTRODUODENOSCOPY Hiatal hernia Gastroesophageal reflux disease, unspecified whether esophagitis present 09/07/2024 8:30 AM REGIONAL DRIVER documented as of this encounter Procedures Procedure Name Priority Date/Time Associated Diagnosis Comments EGFR Routine 12/19/2021 3:03 AM CDT CBC WITHOUT DIFFERENTIAL Routine 022 3:03 AM CDT BASIC METABOLIC PANEL Routine 12/19/2021 3:03 AM CDT ESOPHAGOGASTRODUODENOSCOPY BIOPSY 12/18/2021 3:28 PM CDT Nausea and vomiting, unspecified vomiting type EGD 12/18/2021 2:14 PM CDT INFLUENZA A/B, RSV, AND COVID-19 PCR Routine 12/18/2021 1:05 PM CDT SURGICAL PATHOLOGY STAT 12/18/2021 9:28 AM CDT Nausea and vomiting, unspecified vomiting type CT ABDOMEN PELVIS W CONTRAST ED 12:37 AM CDT LACTATE STAT 12/17/2021 11:35 PM CDT URINALYSIS AND REFLEX TO MICROSCOPIC AND CULTURE STAT 12/17/2021 9:25 PM CDT DRUGS OF ABUSE SCREEN, URINE WITHOUT CONFIRMATION STAT 12/17/2021 9:25 PM CDT EGFR STAT 12/17/2021 9:12 PM CDT DIFFERENTIAL AUTO STAT 12/17/2021 9:12 PM CDT CBC WITH AUTO DIFFERENTIAL STAT 12/17 9:12 PM CDT LIPASE STAT 12/17/2021 9:12 PM CDT COMPREHENSIVE METABOLIC PANEL STAT 9:12 PM CDT documented in this encounter Results * eGFR (12/19/2021 3:03 AM CDT) eGFR 89 mL/min/1. 73 m2 [facility] ([place]) Comment: [...] interpretive data was last reviewed 2021. Blood 12/19/2021 3:03 AM CDT 12/19/2021 3:14 AM CDT Naz Enriquez MD LAB BLOOD ORDERABLES Cristy beebe Result [facility] ([place]) 1 [facility] [place] [address] * Basic metabolic panel (12/19/2021 3:03 AM CDT) Sodium 143 135 - 145 mmol/L [facility] ([place]) Potassium, pl 3.5 3.3 - 4.9 mmol/L [facility] ([place]) Chloride 108 97 - 110 mmol/L [facility] ([place]) CO2 26 22 - 32 mmol/L [facility] ([place]) Anion gap 10 2 - 15 mmol/L [facility] ([place]) BUN 11 8 - 25 mg/dL [facility] ([place]) Creatinine 0.79 0.60 - 1.10 mg/dL [facility] ([place]) Glucose 99 70 - 199 mg/dL [facility] ([place]) [...] interpretive data was last revised 2017. Calcium 8.7 8.5 - 10.3 mg/dL [facility] ([place]) Blood 12/19/2021 3:03 AM CDT 12/19/2021 3:14 AM CDT us Naz Enriquez MD LAB BLOOD ORDERABLES Cristy l Result [facility] ([place]) 1 [facility] [place] [place] [address] * (ABNORMAL) CBC without differential (12/19/2021 3:03 AM CDT) WBC 10.3(H) 3.8 - 9.9 K/cumm [facility] ([place]) Hgb 9.1(L) 11.9 - 15.5 g/dL [facility] ([place]) Hct 29.3(L) 35.6 - 45.5 % [facility] ([place]) Plt 230 150 - 400 K/cumm [facility] ([place]) MPV 11.1 9.1 - 12.3 fL [facility] ([place]) RBC 3.42(L) 3.90 - 5.20 M/cumm [facility] ([place]) MCV 85.7 81.3 - 96.4 fL [facility] ([place]) MCH 26.6(L) 27.1 - 33.3 pg [facility] ([place]) MCHC 31.1(L) 32.3 - 35.7 g/dL [facility] ([place]) RDW CV 16.3(H) 11.1 - 14.9 % [facility] ([place]) RDW SD 51.1(H) 35.7 - 48.1 fL [facility] ([place]) NRBC abs 0.00 0.00 - 0.01 K/cumm [facility] ([place]) Blood 12/19/2021 3:03 AM CDT 12/19/2021 3:14 AM CDT us Naz Enriquez MD LAB BLOOD ORDERABLES Cristy l Result [facility] ([place]) 1 [facility] [place] [place] [address] * EGD (12/18/2021 2:14 PM CDT) Anatomical Region Laterality Modality Other Narrative Procedure Note Germania Sorto MD - 12/18/2021 2:14 PM CDT [facility] Patient Name: Sarahy Mays Procedure Date: 12/18/2021 2:14 PM Date of : 1970 Admit Type: Outpatient Age: 51 Gender: Female Attending MD: Germania Sorto M.D. Room: [facility] ENDOSCOPY ROOM 1 Note Status: Finalized Patient Profile: This is a 51 year old female. Patient admitted with nausea vomiting. She has recurrent episode ofnausea vomiting attributed to cyclic vomiting syndrome.She smokes marijuana Procedure: Upper GI endoscopy Indications: Nausea with vomiting Referring MD: Parmjit Ewing M.D. Providers: Germania Sorto M.D. Impression: - Normal examined duodenum. - Erythematous mucosa in the antrum likely mild chronic gastritis. Biopsied. - Mild reflux esophagitis Recommendation: - Await pathology results. - Use Protonix (pantoprazole) 40 mg PO daily. - Start clear liquid diet and slowly advancediet. - Add nortriptyline at night. Medicines: Monitored Anesthesia Care Complications: No immediate [...] passed under direct vision. The Endoscope [id number] was introduced through the mouth, and advanced to the second partof duodenum. The upper GI endoscopy was accomplished without difficulty. The patient tolerated the procedure well. Findings: The examined duodenum was normal. Mucosal pattern normal. Diffuse moderately erythematous mucosa without bleeding was found inthe gastric antrum suggestive of mild chronic gastritis. No ulcers.Biopsies were taken with a cold forceps for histology. The gastric body and fundus were unremarkable. Retroflexion view in the stomach was unremarkable . The examined esophagus was normal. The GE junction noted with mild reflux esophagitis Electronically signed by Germania Sorto M.D. Germania Sorto M.D. 12/18/2021 4:22:58 PM Number of Addenda: 0 Note Initiated On: 12/18/2021 2:14 PM Procedure Code(s): --- Professional --- 90032, Esophagogastroduodenoscopy, flexible, transoral; with biopsy, single or multiple Diagnosis Code(s): --- Professional --- K31.89, Other diseases of stomach and duodenum R11.2, Nausea with vomiting, unspecified CPT copyright 2020 [employer]. All rights reserved. The codes documented in this report are preliminary and upon cost estimator reviewmay be revised to meet current compliance requirements. Recognized by the [place] [employer] for promoting quality in endoscopy Germania Sorto MD ENDOSCOPY PROCEDURES Final Result * Influenza A/B, RSV, and COVID-19 PCR Nasopharyngeal (12/18/2021 1:05 PM CDT) COVID-19 RNA Negative Negative [facility] ([place]) Influenza A RNA Negative Negative [facility] ([place]) Influenza B RNA Negative Negative [facility] ([place]) RSV RNA Negative Negative [facility] ([place]) Comment: Interpretive data: This test is performed using the [employer] Xpert Xpress CoV-2/Flu/RSV plus assay. This is [...] infection. Interpretive Data last revised 2021. Nasopharyngeal 12/18/2021 1: 05 PM CDT 12/18/2021 1:10 PM CDT Narrative [facility] ([place]) - 12/18/2021 1:55 PM CDT Is the Patient experiencing symptoms consistent with COVID?->No Reason for testing?->Urgent surgical procedure Germania Sorto MD LAB MICROBIOLOGY - GENERAL ORDERABLES Final Result [facility] ([place]) 1 [facility] [place] [address] * Surgical pathology (12/18/2021 9:28 AM CDT) Tissue (Polyp(s), colon/colorectal, esophageal, gastric) 12/18/2021 3:49 PM CDT Narrative PATHOLOGY [facility] ([place]) - 12/20/2021 1:33 PM CDT EPIC results best viewed via link to PDF [facility] Department of Pathology [address] [place] [id number] Note to Patients: This report may contain [...] Final Report Patient Name: ??SARAHY MAYS Address: ??[address] [place] [address], ??[place], [place] ?? Gender: ??F : ??1970 (Age: 51) Service: ??Medical Location: ??[facility] Hospital #: ??[id number] Patient Type: ??[facility] Accession # ?[id number] Taken: ??12/18/2021 Received: ??12/19/2021 Accessioned: ??12/19/2021 Reported: ??12/20/2021 Physician(s):Dr. Germania Sorto M.D. Diagnosis: Stomach, biopsies: ? - Antral-type gastric mucosa showing mild chronic inactive gastritis with mild regenerative change. - Negative for intestinal metaplasia and dysplasia. - Negative for Helicobacter. Say Martin M.D. Report Electronically Reviewed and Signed Out By ??Say Martin M.D. ??12/20/2021 13:33:45 Specimen(s) Received: A: Gastric biopsy Microscopic Description: Sections show fragments of antral-type gastric mucosa showing a mild chronic inactive gastritis with some mild regenerative change. ??There is no evidence of intestinal metaplasia or dysplasia. In order to classify the gastritis further, a Helicobacter immunohistochemical stain was performed with adequate controls and is negative. Clinical History: Nausea and vomiting. ??EGD. ?? Gross Description: The specimen is submitted in a single container labeled Sarahy Mays and gastric body . ??It is two padron 2 mm fragments. ??All in one cassette. ??Victoria Saravia M.D./Hotrensia Florez REPORT IMAGES AND SCANNED DOCUMENTS, IF INCLUDED, ONLY VIEWABLE IN PDF VERSION OF REPORT The performance characteristics of some immunohistochemical stains, fluorescence in-situ hybridization tests and immunophenotyping by flow cytometry cited in this report (if any) were determined by the Surgical Pathology Department at [facility] as part of an ongoing director quality systems program and in compliance with federally mandated [...] characteristics determined by the Surgical Pathology Department [facility]. ??It has not been cleared or approved by the U. S. Food and Drug Administration. Note for decalcified specimens: This assay has not been validated on decalcified tissues. Results should be interpreted with caution given the possibility of false negativity on decalcified specimens Germania Sorto MD LAB PATHOLOGY ORDERABLES F inal Result Performing Organization Address City/State/[facility] Co de Phone Number PATHOLOGY [facility] [address] [place] [address] * CT Abdomen Pelvis W Contrast (12/18/2021 12:37 AM CDT) Anatomical Region Laterality Modality Body N/A Computed Tomogra phy 12/18/2021 12:5 1 AM CDT Narrative 12/18/2021 1:07 AM CDT EXAM DESCRIPTION: ?? CT ABDOMEN PELVIS W CONTRAST REASON FOR STUDY: ?? Abdominal infection suspected ?? 51 y.o. female with h/o irritable bowel syndrome, cyclical vomiting, presents for abdominal pain that is not her typical abdominal pain. ??The patient had been feeling well for the past 2 weeks has only been eating 1 meal a day has lost 7 lb per her ?? report (per GI note had gained 2 lb from her previous visit) saw her GI doctor yesterday who prescribed a new med but the patient has not started yet, she has not yet picked it up from the pharmacy. ??Today, she went to the bathroom, she was having some ?? low abdominal pain and thought that she needed to have a bowel movement, sat on the toilet, did not have a bowel movement, but started sweating, feeling lightheaded like she was going to pass out, put a cool washcloth on her neck and laid down in bed. ?Then the pain traveled into her right-sided abdomen, was severe, stabbing without clear aggravating or relieving factors, but felt similar to when she had intussusception the past which is why she presented to the emergency department. ??She has been ?? nauseated. ??No vomiting, no measured fever, no change in bowel habits. ??Last bowel movement was 2 days ago but she goes in between having diarrhea and constipation. ??No dysuria frequency urgency, no vaginal symptoms, his history of uterine ablation and ?? is postmenopausal. ?? TECHNIQUE: CT scan of the abdomen and pelvis performed with intravenous and ?? without ??oral contrast using helical scanning technique with dynamic intravenous contrast injection. Reconstructed coronal and sagittal MPR images reviewed. All images stored on PACS. Automated exposure control was used as a dose optimization technique for this examination. CONTRAST TYPE/DOSE: ?? 100mL of IOVERSOL 320 MG IODINE/ML INTRAVENOUS SOLUTION ?? injected via ?? intravenous COMPARISON: ?? 09/09/2021 FINDINGS: Motion artifact degrades images limiting interpretation evaluation of this examination. LOWER CHEST: ?? No significant pulmonary abnormalities. No effusion. ?? Small sliding hiatal hernia. LIVER: ?? Focus of contrast enhancement in the right carey liver is not seen on prior examination, likely related to portal venous shunting, and phase of contrast. GALLBLADDER: ?? Surgically absent BILE DUCTS: ?? No intrahepatic or extrahepatic ductal dilatation. SPLEEN: ?? Normal size. ??No focal lesions. PANCREAS: ?? No identified cystic or solid masses. No significant calcifications. No adjacent inflammation or peripancreatic fluid collections. Pancreatic duct not dilated. ?? ADRENALS: ?? Normal. KIDNEYS/URINARY TRACT: ?? Kidneys enhance symmetrically. ??Right upper pole renal lesion is degraded by motion artifact and better evaluated on prior CT 09/09/2021. ??No hydronephrosis. ?Mild urinary bladder wall thickening. GI: ?? New nodular soft tissue densities the right medial gluteal fold (image 147). ??For reference, there is a 1.1 cm nodular soft tissue density in the medial right gluteal fold (image 147). ??Stomach and small bowel are normal in course and caliber without evidence of obstruction. ??The colon is normal. ??The appendix is normal. ??Tiny fat containing periumbilical hernia is seen. PERITONEUM: ?? No ascites or free air. RETROPERITONEUM: ?? The portal venous system is poorly opacified due to phase of contrast. ??The proximal superior mesenteric artery is patent. ??There is a replaced right hepatic artery. REPRODUCTIVE: ?? No significant abnormality. VASCULATURE: ?? No abdominal aortic aneurysm. MUSCULOSKELETAL: ?? Scoliosis. ??Grade 1 anterolisthesis of L4 on L5. ??Mild multilevel degenerative disc disease of the lumbar spine. ?? Bilateral facet arthropathy. OTHER: ?? No other abnormality. IMPRESSION: ?? 1. ?? Mild urinary bladder wall thickening. ??Recommend clinical correlation with urinalysis to evaluate for cystitis. 2. ?? New, nodular soft tissue densities in the right medial gluteal fold. ?? Infectious etiology cannot be excluded. ??Recommend clinical correlation with physical examination. THIS IS AN ELECTRONICALLY VERIFIED FINAL REPORT 12/18/2021 1:07 AM - Electronically signed by ??Parmjit Herrera M.D. BB: BÁRBARA D: ??12/18/2021 1:07 AM T: ??12/18/2021 1:07 AM Report ID: [id number] Reading Location: ??[id number] Procedure Note Parmjit Herrera MD PhD - 12/18/2021 EXAM DESCRIPTION: CT ABDOMEN PELVIS W CONTRAST REASON FOR STUDY: Abdominal infection suspected 51 y.o. female with h/o irritable bowel syndrome, cyclical vomiting,presents for abdominal pain that is not her typical abdominal pain. The patienthad been feeling well for the past 2 weeks has only been eating 1 meal a dayhas lost 7 lb per her report (per GI note had gained 2 lb from her previous visit) saw her GI doctor yesterday who prescribed a new med but thepatient has not started yet, she has not yet picked it up from the pharmacy.Today, she went to the bathroom, she was having some low abdominal pain andthought that she needed to have a bowel movement, sat on the toilet, did not havea bowel movement, but started sweating, feeling lightheaded like she wasgoing to pass out, put a cool washcloth on her neck and laid down in bed.Then the pain traveled into her right-sided abdomen, was severe, stabbingwithout clear aggravating or relieving factors, but felt similar to when she had intussusception the past which is why she presented to the emergency department. She has been nauseated. No vomiting, no measured fever, no change in bowel habits. Last bowel movement was 2 days ago but she goesin between having diarrhea and constipation. No dysuria frequency urgency,no vaginal symptoms, his history of uterine ablation and is postmenopausal. TECHNIQUE: CT scan of the abdomen and pelvis performed with intravenousand without oral contrast using helical scanning technique with dynamic intravenous contrast injection. Reconstructed coronal and sagittal MPRimages reviewed. All images stored on PACS. Automated exposure control was used as a dose optimization technique forthis examination. CONTRAST TYPE/DOSE: 100mL of IOVERSOL 320 MG IODINE/ML INTRAVENOUSSOLUTION injected via intravenous COMPARISON: 09/09/2021 FINDINGS: Motion artifact degrades images limiting interpretation evaluation of this examination. LOWER CHEST: No significant pulmonary abnormalities. No effusion.Small sliding hiatal hernia. LIVER: Focus of contrast enhancement in the right carey liver is not seenon prior examination, likely related to portal venous shunting, and phase of contrast. GALLBLADDER: Surgically absent BILE DUCTS: No intrahepatic or extrahepatic ductal dilatation. SPLEEN: Normal size. No focal lesions. PANCREAS: No identified cystic or solid masses. No significant calcifications. No adjacent inflammation or peripancreatic fluidcollections. Pancreatic duct not dilated. ADRENALS: Normal. KIDNEYS/URINARY TRACT: Kidneys enhance symmetrically. Right upper pole renal lesion is degraded by motion artifact and better evaluated on priorCT 09/09/2021. No hydronephrosis. Mild urinary bladder wall thickening. GI: New nodular soft tissue densities the right medial gluteal fold(image 147). For reference, there is a 1.1 cm nodular soft tissue density in the medial right gluteal fold (image 147). Stomach and small bowel are normalin course and caliber without evidence of obstruction. The colon is normal.The appendix is normal. Tiny fat containing periumbilical hernia is seen. PERITONEUM: No ascites or free air. RETROPERITONEUM: The portal venous system is poorly opacified due tophase of contrast. The proximal superior mesenteric artery is patent. There bel replaced right hepatic artery. REPRODUCTIVE: No significant abnormality. VASCULATURE: No abdominal aortic aneurysm. MUSCULOSKELETAL: Scoliosis. Grade 1 anterolisthesis of L4 on L5. Mild multilevel degenerative disc disease of the lumbar spine. Bilateralfacet arthropathy. OTHER: No other abnormality. IMPRESSION: 1. Mild urinary bladder wall thickening. Recommend clinical correlation with urinalysis to evaluate for cystitis. 2. New, nodular soft tissue densities in the right medial gluteal fold. Infectious etiology cannot be excluded. Recommend clinical correlationwith physical examination. THIS IS AN ELECTRONICALLY VERIFIED FINAL REPORT 12/18/2021 1:07 AM - Electronically signed by Parmjit Herrera M.D. BB: BÁRBARA Report ID: [id number] Reading Location: [id number] Mtailde Knowles MD IMG CT PROCEDURES Final Result * Lactate (12/17/2021 11:35 PM CDT) Pathologist [facility] Lactate 1.0 0.7 - 2.0 mmol/L [facility]) Blood 12/17/2021 11:3 5 PM CDT 12/17/2021 11:47 PM CDT Matilde Knowles MD LAB BLOOD ORDERABLES Fin al Result [facility] ([place]) 1 [facility] Department [place] [address] * (ABNORMAL) Drugs of Abuse Screen, Urine without Confirmation (12/17/2021 9:25 PM CDT) Pathologist [facility] Amphetamine, ur Not Detected CutOff 500ng/mL [facility] [...] 2018. Opiates, ur Not Detected CutOff 300ng/mL [facility] ([place]) Comment: Interpretive Data - Opiates: ??Samples containing greater than 300 ng/mL morphine or other cross-reacting compounds are reported as positive. ??False positive and false negative results are possible. Current Interpretive Data was last reviewed 2018. Oxycodone, ur Not Detected CutOff 100ng/mL [facility] ([place]) Comment: Interpretive Data - Oxycodone: ??Samples containing greater than 100 ng/mL oxycodone or other cross-reacting compounds are reported as positive. ??False positive and false negative results are possible. ?? Current Interpretive Data was last reviewed 2018. Phencyclidine, ur Not Detected CutOff 25 ng/mL [facility] ([place]) Comment: Interpretive Data - Phencyclidine: ??Samples containing greater than 25 ng/mL phencyclidine or other cross-reacting compounds are reported as positive. ??False positive and false negative results are possible. ?? Current Interpretive Data was last reviewed 2018. Urine Creatinine 101 mg/dL [facility] ([place]) Comment: Interpretive Data Urine Creatinine: < 10 mg/dL is extremely dilute = or > 10 but < 20 mg/dL is dilute = or > 20 mg/dL is normal Current Interpretive Data was last revised on 2017. Urine 12/17/2021 9:25 PM CDT 12/18/2021 5:13 AM CDT Narrative [facility] ([place]) - 12/18/2021 5:39 AM CDT Drug of Abuse screening is performed by immunoassay for medical purposes only. ??This is not to be used for Pain Management purposes. us Matilde Knowles MD LAB URINE ORDERABLES Fin al Result [facility] ([place]) 1 [facility] [place] [address] * Urinalysis reflex to microscopic and culture Urine, clean voided (12/17/2021 9:25 PM CDT) Color, ur Yellow Yellow [facility] ([place]) Clarity, ur Clear Clear [facility] ([place]) Specific gravity, ur 1.010 1.003 - 1.030 [facility] ([place]) pH, urine 6.5 [facility] ([place]) Protein, ur ql Negative [...] met. [facility] ([place]) Urine, clean voided 12/17/2021 9:25 PM CDT 12/17/2021 9:28 PM CDT Narrative [facility] ([place]) - 12/17/2021 9:32 PM CDT ?? Urine pH is affected by diet, medications, systemic acid-base disturbances, and renal tubular function. ??pH may affect urinary stone formation. ??For example, urine pH below 6.0 may help reduce the tendency for calcium phosphate stones and pH greater than 6.0 may reduce the tendency for uric acid stone formation. Source: [employer]. Last revised 09-10-2017 us Matilde Knowles MD LAB MICROBIOLOGY - GENER AL ORDERABLES Final Result [facility] ([place]) 1 [facility] [place] [address] * eGFR (12/17/2021 9:12 PM CDT) eGFR 103 mL/min/1. 73 m2 [facility] ([place]) Comment: Interpretive Data Reference Interval Normal [...] interpretive data was last reviewed 2021. Blood 12/17/2021 9:12 PM CDT 12/17/2021 9:16 PM CDT us Matilde Knowles MD LAB BLOOD ORDERABLES Fin al Result Performing Organization Address City/State/[facility] Co de Phone Number [facility] ([place]) 1 [facility] Department of Laboratories [place], [place] [id number] * (ABNORMAL) Differential, auto (12/17/2021 9:12 PM CDT) Neutrophil abs 11.4(H) 1.7 - 6.5 K/cumm [facility] ([place]) Imm gran abs 0.0 0.0 - 0.1 K/cumm [facility] ([place]) Lymphocyte abs 2.1 0.8 - 3.3 K/cumm [facility] ([place]) Monocyte abs 0.7 0.2 - 0.8 K/cumm [facility] ([place]) Eosinophil abs 0.1 0.0 - 0.5 K/cumm [facility] ([place]) Basophil abs 0.0 0.0 - 0.1 K/cumm [facility] ([place]) Neutrophil pct 79.7 % [facility] ([place]) Comment: Interpretive [...] was last revised on 2017. Lymphocyte pct 14.4 % [facility] ([place]) Comment: Interpretive Data Percent cell count reference ranges are not reported, since discordance with absolute values may lead to misinterpretation of CBC data. Current Interpretive Data was last revised on 2017. Monocyte pct 5.0 % [facility] ([place]) Comment: Interpretive Data [...] revised on 2017. Basophil pct 0.3 % [facility] ([place]) Comment: Interpretive Data Percent cell count reference ranges are not reported, since discordance with absolute values may lead to misinterpretation of CBC data. Current Interpretive Data was last revised on 2017. Blood 12/17/2021 9:12 PM CDT 12/17/2021 9:16 PM CDT us Matilde Knowles MD LAB BLOOD ORDERABLES Fin al Result [facility] ([place]) 1 [facility] [place] [address] * Lipase (12/17/2021 9:12 PM CDT) Lipase 38 10 - 99 Units/L [facility] ([place]) Blood 12/17/2021 9:12 PM CDT 12/17/2021 9:16 PM CDT us Matilde Knowles MD LAB BLOOD ORDERABLES Fin al Result [facility] ([place]) 1 [facility] [place] [address] * Comprehensive metabolic panel (12/17/2021 9:12 PM CDT) Sodium 140 135 - 145 mmol/L [facility] ([place]) Potassium, pl 4.0 3.3 - 4.9 mmol/L [facility] ([place]) Chloride 103 97 - 110 mmol/L [facility] ([place]) CO2 25 22 - 32 mmol/L [facility] Anion gap 12 2 - 15 mmol/L [facility] BUN 9 8 - 25 mg/dL [facility] Creatinine 0.70 0.60 - 1.10 mg/dL [facility] Glucose 101 70 - 199 mg/dL [facility] [...] interpretive data was last revised 2017. Calcium 9.7 8.5 - 10.3 mg/dL [facility] Bilirubin, total 0.3 0.1 - 1.2 mg/dL [facility] Protein, pl 7.7 6.5 - 8.5 g/dL [facility] Albumin 4.7 3.5 - 5.0 g/dL [facility] Alk phos 107 40 - 130 Units/L [facility] ALT 10 7 - 45 Units/L [facility] AST 22 10 - 45 Units/L [facility] Blood 12/17/2021 9:12 PM CDT 12/17/2021 9:16 PM CDT us Matilde Knowles MD LAB BLOOD ORDERABLES Fin al Result [facility] 1 [facility] [place] [address] * (ABNORMAL) CBC with auto differential (12/17/2021 9:12 PM CDT) WBC 14.3(H) 3.8 - 9.9 K/cumm [facility] Hgb 11.7(L) 11.9 - 15.5 g/dL [facility] Hct 36.2 35.6 - 45.5 % [facility] Plt 320 150 - 400 K/cumm [facility] MPV 10.6 9.1 - 12.3 fL [facility] RBC 4.38 3.90 - 5.20 M/cumm [facility] MCV 82.6 81.3 - 96.4 fL [facility] MCH 26.7(L) 27.1 - 33.3 pg [facility] MCHC 32.3 32.3 - 35.7 g/dL [facility] RDW CV 15.5(H) 11.1 - 14.9 % [facility] RDW SD 46.9 35.7 - 48.1 fL [facility] NRBC abs 0.00 0.00 - 0.01 K/cumm [facility] Blood 12/17/2021 9:12 PM CDT 12/17/2021 9:16 PM CDT us Matilde Knowles MD LAB BLOOD ORDERABLES Fin al Result [facility] [place] 1 [facility] Department [place] [address] documented in this encounter Visit Diagnoses Diagnosis Nausea and vomiting, unspecified vomiting type- Primary Abdominal pain Abdominal pain, unspecified site Irritable bowel syndrome with both constipation and diarrhea Hypertension Unspecified essential hypertension Atrial fibrillation (CMS/HCC) (HCC) Atrial fibrillation Abdominal pain, generalized Cyclic vomiting syndrome Persistent vomiting Bipolar affect, depressed (HCC) Bipolar I disorder, most recent episode (or current) depressed, unspecified Marijuana use Migraine headache Migraine, unspecified, without mention of intractable migraine without mention of status migrainosus Hiatal hernia Diaphragmatic hernia without mention of obstruction or gangrene Gastroesophageal reflux disease, unspecified whether esophagitis present documented in this encounter Admitting Diagnoses Diagnosis Nausea and vomiting Nausea with vomiting documented in this encounter Administered Medications Inactive Administered Medications - up to 3 most recent administrations Medication Order MAR Action Action Date Dose Rate Site acetaminophen (TYLENOL) tablet 650 mg 650 mg, oral, Every 4 hours PRN, 1st line for pain, Starting on Thu12/18/21 at 0639, Indications: PainIndications:Pain Given 12/19/2021 3:17 PM CDT 650 mg Given 12/19/2021 8:12 AM CDT 650 mg apixaban (ELIQUIS) tablet 5 mg 5 mg, oral, 2 times daily, First dose on Thu12/18/21 at 2100, Indications: atrial fibrillationIndications:atrial fibrillation Given 12/20/2021 10:15 AM CDT 5 mg Given 12/19/2021 8:48 PM CDT 5 mg Given 12/19/2021 8:03 AM CDT 5 mg atorvastatin (LIPITOR) tablet 40 mg 40 mg, oral, Daily, First dose on Thu12/18/21 at 2100, Indications: hyperlipidemiaIndications:hyperlipidemia Given 12/19/2021 8:48 PM CDT 40 mg Given 12/18/2021 8:25 PM CDT 40 mg bisacodyl EC (DULCOLAX EC) tablet 10 mg 10 mg, oral, Daily PRN, constipation, If no results 24 hours after milk of magnesia, Starting on Thu12/18/21 at 2123, Do not crush, chew, cut, dissolve, open or otherwise manipulate tablet/capsule. clonazePAM (KlonoPIN) tablet 0.5 mg 0.5 mg, oral, Every morning, First dose on Thu12/18/21 at 2145 Given 12/19/2021 7:54 PM CDT 0.5 mg Given 12/18/2021 10:48 PM CDT 0.5 mg famotidine (PEPCID) injection 40 mg 40 mg, intravenous, Administer over 2 Minutes, Once, On Thu12/18/21 at 0419, For 1 dose Given 12/18/2021 5:00 AM CDT 40 mg famotidine (PEPCID) tablet 20 mg 20 mg, oral, 2 times daily, First dose on Thu12/19/21 at 0900, Medication, pantoprazole, changed from PPI to H2 antagonist (famotidine) per protocol for stress ulcer prophylaxis. Dosed based off of crcl > 50 ml/min (Estimated Creatinine Clearance: 71.1 mL/min (by C-G formula based on SCr of 0.79 mg/dL).) Given 12/20/2021 10:14 AM CDT 20 mg Given 12/19/2021 8:48 PM CDT 20 mg Given 12/19/2021 8:07 AM CDT 20 mg flecainide (TAMBOCOR) tablet 50 mg 50 mg, oral, Once, On Thu12/17/21 at 2259, For 1 dose Given 12/17/2021 11:34 PM CDT 50 mg flecainide (TAMBOCOR) tablet 50 mg 50 mg, oral, 2 times daily, First dose on Thu12/18/21 at 2100 Given 12/20/2021 10:14 AM CDT 50 mg Given 12/19/2021 8:49 PM CDT 50 mg Given 12/19/2021 8:01 AM CDT 50 mg haloperidol (HALDOL) injection 2.5 mg 2.5 mg, intramuscular, Once, On Thu12/18/21 at 0419, For 1 dose, If administered IV push, administer over 5 min for adults Given 12/18/2021 4:47 AM CDT 2.5 mg Left Deltoid hydrOXYzine (VISTARIL) capsule 25 mg 25 mg, oral, 3 times daily PRN, anxiety, Starting on Thu12/18/21 at 1655 ioversoL (OPTIRAY 320) injection 100 mL 100 mL, intravenous, Once in imaging, contrast, Starting on Thu12/18/21 at 0029, For 1 dose Contrast Given 12/18/2021 12:37 AM CDT 100 mL Lactated Ringer's (LR) bolus 1,000 mL 1,000 mL, intravenous, at 1,000 mL/hr, Administer over 1 Hours, Once, On Thu12/17/21 at 2252, For 1 dose New Bag 12/17/2021 11:34 PM CDT 1,000 mL 1000 mL/hr loperamide (IMODIUM) capsule 2 mg 2 mg, oral, 3 times daily PRN, diarrhea, Starting on Thu12/18/21 at 0639, Maximum recommended dose 16 mg/day Given 12/18/2021 7:14 AM CDT 2 mg LORazepam (ATIVAN) injection 0.5 mg 0.5 mg, intravenous, Once, On Thu12/18/21 at 0003, For 1 dose, For IV administration, dilute with equal volume of 0.9% sodium chloride to a final concentration of 1 mg/mL. Do not exceed a rate of 2 mg/minute Given 12/18/2021 12:05 AM CDT 0.5 mg lubiprostone (AMITIZA) capsule 24 mcg 24 mcg, oral, 2 times daily with meals (bkfst, dinner), First dose on Thu12/18/21 at 1800, Do not crush, chew, cut, dissolve, open or otherwise manipulate tablet/capsule. Given 12/20/2021 10:16 AM CDT 24 mcg Given 12/19/2021 5:37 PM CDT 24 mcg Given 12/19/2021 8:13 AM CDT 24 mcg magnesium hydroxide (MILK OF MAGNESIA) 80 mg/mL (33.3 mg/mL as elemental magnesium) oral suspension 30 mL 30 mL, oral, Daily PRN, constipation, Starting on Thu12/18/21 at 2123 metoprolol XL (TOPROL-XL) extended release tablet 25 mg 25 mg, oral, Daily, First dose on Thu12/18/21 at 1715, Tablets that are scored may be split, but do not crush, chew, dissolve, open or otherwise manipulate tablet/capsule., On hold since Thu12/20/2021 at 0727 until manually unheld Given 12/19/2021 8:03 AM CDT 25 mg Given 12/18/2021 5:11 PM CDT 25 mg mineral oil (FLEET MINERAL OIL) enema 1 enema 1 enema, rectal, Daily PRN, constipation, if no results 24 hours after bisacodyl, Starting on Thu12/18/21 at 2123, Indications: constipationIndications:cons tipation nortriptyline (PAMELOR) capsule 25 mg 25 mg, oral, Nightly, First dose on Thu12/18/21 at 2100 Given 12/19/2021 8:49 PM CDT 25 mg ondansetron (ZOFRAN) injection 4 mg 4 mg, intravenous, Administer over 2 Minutes, Once, On Thu12/17/21 at 2342, For 1 dose Given 12/17/2021 11:44 PM CDT 4 mg ondansetron (ZOFRAN) injection 4 mg 4 mg, intravenous, Administer over 2 Minutes, Every 6 hours PRN, nausea, vomiting, if not tolerating PO, Starting on Thu12/18/21 at 0639, Indications: Nausea and VomitingIndications:Nausea and Vomiting Given 12/18/2021 7:14 AM CDT 4 mg ondansetron (ZOFRAN) injection 8 mg 8 mg, intramuscular, Once, On Thu12/18/21 at 0136, For 1 dose Given 12/18/2021 1:52 AM CDT 8 mg Left Dorsogluteal/Buttock ondansetron (ZOFRAN) tablet 4 mg 4 mg, oral, Every 6 hours, First dose on Thu12/18/21 at 1715 Given 12/20/2021 11:22 AM CDT 4 mg Given 12/20/2021 5:27 AM CDT 4 mg Given 12/19/2021 11:06 PM CDT 4 mg ondansetron ODT (ZOFRAN-ODT) disintegrating tablet 4 mg 4 mg, oral, Once, On Thu12/17/21 at 2115, For 1 dose Given 12/17/2021 9:16 PM CDT 4 mg ondansetron ODT (ZOFRAN-ODT) disintegrating tablet 4 mg 4 mg, oral, Every 6 hours PRN, nausea, vomiting, Starting on Thu12/18/21 at 0639, Indications: Nausea and VomitingIndications:Nausea and Vomiting pantoprazole DR (PROTONIX) extended release tablet 40 mg 40 mg, oral, Daily, First dose on Thu12/18/21 at 1715, Do not crush, chew, cut, dissolve, open or otherwise manipulate tablet/capsule., Indications: Stress Ulcer ProphylaxisIndications:Stress Ulcer Prophylaxis Given 12/18/2021 5:11 PM CDT 40 mg polyethylene glycol (MIRALAX) packet 17 g 17 g, oral, Nightly, First dose (after last reorder) on Anayeli 12/19/21 at 2100 Given 12/19/2021 8:49 PM CDT 17 g promethazine (PHENERGAN) suppository 25 mg 25 mg, rectal, Once, On Thu12/18/21 at 0136, For 1 dose, Refrigerate Given 12/18/2021 1:52 AM CDT 25 mg senna-docusate (PERICOLACE) 8.6-50 mg per tablet 2 tablet 2 tablet, oral, Nightly, First dose on Anayeli 12/19/21 at 2100 Given 12/19/2021 8:50 PM CDT 2 tablets sodium chloride 0.9% flush 0.5-20 mL 0.5-20 mL, intra-catheter, Every 8 hours scheduled, First dose on Thu12/18/21 at 1400, Flush volume based on line type and size. Given 12/20/2021 5:28 AM CDT 10 mL Given 12/19/2021 8:50 PM CDT 10 mL Given 12/19/2021 3:19 PM CDT 10 mL sodium chloride 0.9% flush 0.5-20 mL 0.5-20 mL, intra-catheter, As needed, line care, Starting on Thu12/18/21 at 1318, Flush volume based on line type and size. Flush before and after each use. sodium chloride 0.9% infusion 50 mL/hr, intravenous, Continuous, Starting on Thu12/18/21 at 1715 Rate/Dose Verify 12/19/2021 6:00 AM CDT 50 mL/hr 50 mL/hr New Bag 12/18/2021 4:47 PM CDT 50 mL/hr 50 mL/hr venlafaxine XR (EFFEXOR-XR) extended release capsule 37.5 mg 37.5 mg, oral, Daily, First dose on Thu12/18/21 at 1800, Do not crush, chew, cut, dissolve, open or otherwise manipulate tablet/capsule. Given 12/20/2021 10:14 AM CDT 37.5 mg Given 12/19/2021 8:03 AM CDT 37.5 mg Given 12/18/2021 5:36 PM CDT 37.5 mg documented in this encounter Discontinued Medications Medication Sig Discontinue Reason Start Date End Da te nortriptyline (PAMELOR) 25 mg capsule Take 1 capsule (25 mg total) by mouth nightly 12/20/2021 12/20/2021 documented as of this encounter Active and Recently Administered Medications Times are shown in CDT. Scheduled Medication Order 12/18/2021 12/19/2021 12/20/2021 apixaban (ELIQUIS) tablet 5 mg 5 mg, oral, 2 times daily, First dose on Thu12/18/21 at 2100, Indications: atrial fibrillation 2024 (Given - Provider: Deedee Camacho RN) 0803 (Given - Provider: Jessica Delarosa)2047 (Given - Provider: Jovon Rios RN) 1015 (Given - Provider: Mary Sheldon RN) atorvastatin (LIPITOR) tablet 40 mg 40 mg, oral, Daily, First dose on Thu12/18/21 at 2100, Indications: hyperlipidemia 2024 (Given - Provider: Deedee Camacho RN) 2047 (Given - Provider: Jovon Rios, KIET) citalopram (CeleXA) tablet 10 mg 10 mg, oral, Daily, First dose on Thu12/18/21 at 1715, Indications: Anxiety with Depression 1711 (Not Given - Provider: Mary Tobin RN - Reason: Patient/family refused) 0800 (Not Given - Provider: Jessica Delarosa - Reason: Patient/family refused) 1015 (Not Given - Provider: Mary Sheldon RN - Reason: Patient/family refused) clonazePAM (KlonoPIN) tablet 0.5 mg 0.5 mg, oral, Every morning, First dose on Thu12/18/21 at 2145 2248 (Given - Provider: Deedee Camacho, KIET) 1954 (Given - Provider: Jovon Rios RN) famotidine (PEPCID) injection 40 mg (COMPLETED) 40 mg, intravenous, Administer over 2 Minutes, Once, On Thu12/18/21 at 0419, For 1 dose 0500 (Given - Provider: Nicolás Goodwin RN) famotidine (PEPCID) tablet 20 mg 20 mg, oral, 2 times daily, First dose on Anayeli 12/19/21 at 0900, Medication, pantoprazole, changed from PPI to H2 antagonist (famotidine) per protocol for stress ulcer prophylaxis. Dosed based off of crcl > 50 ml/min (Estimated Creatinine Clearance: 71.1 mL/min (by C-G formula based on SCr of 0.79 mg/dL).) 0803 (Not Given - Provider: Jessica Delraosa - Reason: Order Discontinued)0807 (Given - Provider: Jessica Delarosa)2047 (Given - Provider: Jovon Rios RN) 1014 (Given - Provider: Mary Sheldon RN) flecainide (TAMBOCOR) tablet 50 mg 50 mg, oral, 2 times daily, First dose on Thu12/18/21 at 2100 202 (Given - Provider: Deedee Camacho RN) 08 (Given - Provider: Jessica Delarosa)2048 (Given - Provider: Jovon Rios RN) 1014 (Given - Provider: Mary Sheldon RN) haloperidol (HALDOL) injection 2.5 mg (COMPLETED) 2.5 mg, intramuscular, Once, On Thu12/18/21 at 0419, For 1 dose, If administered IV push, administer over 5 min for adults 0447 (Given - Provider: Nicolás Goodwin RN) LORazepam (ATIVAN) injection 0.5 mg (COMPLETED) 0.5 mg, intravenous, Once, On Thu12/18/21 at 0003, For 1 dose, For IV administration, dilute with equal volume of 0.9% sodium chloride to a final concentration of 1 mg/mL. Do not exceed a rate of 2 mg/minute 0005 (Given - Provider: Nicolás Goodwin RN) lubiprostone (AMITIZA) capsule 24 mcg 24 mcg, oral, 2 times daily with meals (bkfst, dinner), First dose on Thu12/18/21 at 1800, Do not crush, chew, cut, dissolve, open or otherwise manipulate tablet/capsule. 2019 (Not Given - Provider: Deedee Camacho RN - Reason: Patient/family refused) 0813 (Given - Provider: Jessica Delarosa)1737 (Given - Provider: Mary Tobin RN) 1016 (Given - Provider: Mary Sheldon RN) metoprolol XL (TOPROL-XL) extended release tablet 25 mg 25 mg, oral, Daily, First dose on Thu12/18/21 at 1715, Tablets that are scored may be split, but do not crush, chew, dissolve, open or otherwise manipulate tablet/capsule., On hold since Thu12/20/2021 at 0727 until manually unheld 171 (Given - Provider: Mary Tobin RN) 0803 (Given - Provider: Jessica Delarosa) 0727 (Held by Provider - Provider: Joshua Pearson MD - Reason: Change in Patient Status)0900 (Dose Auto Held - Provider: Joshua Pearson MD)1643 (Unheld by Provider - Provider: Automatic Discharge Provider) nortriptyline (PAMELOR) capsule 25 mg 25 mg, oral, Nightly, First dose on Thu12/18/21 at 2100 2020 (Not Given - Provider: Deedee Camacho RN - Reason: Patient/family refused) 2048 (Given - Provider: Jovon Rios RN) ondansetron (ZOFRAN) injection 8 mg (COMPLETED) 8 mg, intramuscular, Once, On Thu12/18/21 at 0136, For 1 dose 0152 (Given - Provider: Nicolás Goodwin RN) ondansetron (ZOFRAN) tablet 4 mg 4 mg, oral, Every 6 hours, First dose on Thu12/18/21 at 1715 1711 (Given - Provider: Mary Tobin RN)2248 (Given - Provider: Deedee Camacho RN) 0555 (Given - Provider: Deedee Camacho RN)1114 (Given - Provider: Jessica Delarosa)1649 (Given - Provider: Mary Tobin, KIET)2306 (Given - Provider: Jovon Rios, KIET) 0527 (Given - Provider: Jovon Rios RN)1122 (Given - Provider: Mary Sheldon RN) pantoprazole DR (PROTONIX) extended release tablet 40 mg (CANCELED) 40 mg, oral, Daily, First dose on Thu12/18/21 at 1715, Do not crush, chew, cut, dissolve, open or otherwise manipulate tablet/capsule., Indications: Stress Ulcer Prophylaxis 171 (Given - Provider: Mary Tobin, KIET) polyethylene glycol (MIRALAX) packet 17 g 17 g, oral, Nightly, First dose (after last reorder) on Thu12/19/21 at 2100 2048 (Given - Provider: Jovon Rios, KIET) promethazine (PHENERGAN) suppository 25 mg (COMPLETED) 25 mg, rectal, Once, On Thu12/18/21 at 0136, For 1 dose, Refrigerate 0152 (Given - Provider: Nicolás Goodwin, KIET) senna-docusate (PERICOLACE) 8.6-50 mg per tablet 2 tablet 2 tablet, oral, Nightly, First dose on Thu12/19/21 at 2100 2049 (Given - Provider: Jovon Rios, KIET) sodium chloride 0.9% flush 0.5-20 mL 0.5-20 mL, intra-catheter, Every 8 hours scheduled, First dose on Thu12/18/21 at 1400, Flush volume based on line type and size. 1407 (OCT Hold - Provider: Automatic Transfer Provider - Reason: Patient not available)1642 (MAR Unhold - Provider: Mary Tobin RN)1647 (Given - Provider: Mary Toibn RN - Comment: in EGD)2245 (Not Given - Provider: Deedee Camacho RN - Reason: IV Infusing) 0555 (Not Given - Provider: Deedee Camacho, KIET - Reason: IV Infusing)1519 (Given - Provider: Jessica Delarosa)2049 (Given - Provider: Jovon Rios RN) 0528 (Given - Provider: Jovon Rios RN) venlafaxine XR (EFFEXOR-XR) extended release capsule 37.5 mg 37.5 mg, oral, Daily, First dose on Thu12/18/21 at 1800, Do not crush, chew, cut, dissolve, open or otherwise manipulate tablet/capsule. 1736 (Given - Provider: Mary Tobin RN) 0803 (Given - Provider: Jessica Delarosa) 1014 (Given - Provider: Mary Sheldon RN) Continuous Medication Order 12/18/2021 12/19/2021 12/20/2021 sodium chloride 0.9% infusion (CANCELED) 125 mL/hr, intravenous, Continuous, Starting on Thu12/18/21 at 1500, Recovery (GI) 1538 (New Bag - Provider: Lauren Yang CRNA)1545 (Anesthesia Volume Adjustment - Provider: Lauren Yang CRNA) sodium chloride 0.9% infusion (CANCELED) 50 mL/hr, intravenous, Continuous, Starting on Thu12/18/21 at 1715 1647 (New Bag - Provider: Mary Tobin RN) 0600 (Rate/Dose Verify - Provider: Lea Marcelo RN)1214 (Stopped - Provider: Jessica Delarosa) PRN Medication Order 12/18/2021 12/19/2021 12/20/2021 acetaminophen (TYLENOL) tablet 650 mg 650 mg, oral, Every 4 hours PRN, 1st line for pain, Starting on Thu12/18/21 at 0639, Indications: Pain 1407 (MAR Hold - Provider: Automatic Transfer Provider - Reason: Patient not available)1642 (MAR Unhold - Provider: Mary Tobin RN) 0812 (Given - Provider: Jessica Delarosa)1143 (Not Given - Provider: Jessica Delarosa - Reason: Other - Comment: given at 8:12)1517 (Given - Provider: Jessica Delarosa) bisacodyl EC (DULCOLAX EC) tablet 10 mg 10 mg, oral, Daily PRN, constipation, If no results 24 hours after milk of magnesia, Starting on Thu12/18/21 at 2123, Do not crush, chew, cut, dissolve, open or otherwise manipulate tablet/capsule. haloperidol (HALDOL) injection 2 mg 2 mg, intramuscular, Every 6 hours PRN, nausea, Starting on Thu12/18/21 at 0639, If administered IV push, administer over 5 min for adults 1407 (OCT Hold - Provider: Automatic Transfer Provider - Reason: Patient not available)1642 ([facility] Unhold - Provider: Mary Tobin RN) hydrOXYzine (VISTARIL) capsule 25 mg 25 mg, oral, 3 times daily PRN, anxiety, Starting on Thu12/18/21 at 1655 ioversoL (OPTIRAY 320) injection 100 mL (COMPLETED) 100 mL, intravenous, Once in imaging, contrast, Starting on Thu12/18/21 at 0029, For 1 dose 0037 (Contrast Given - Provider: Lottie Jones, RT) loperamide (IMODIUM) capsule 2 mg (CANCELED) 2 mg, oral, 3 times daily PRN, diarrhea, Starting on Thu12/18/21 at 0639, Maximum recommended dose 16 mg/day 0714 (Given - Provider: Roxy Denney RN)1407 (OCT Hold - Provider: Automatic Transfer Provider - Reason: Patient not available)164 ([facility] Unhold - Provider: Mary Tobin RN) magnesium hydroxide (MILK OF MAGNESIA) 80 mg/mL (33.3 mg/mL as elemental magnesium) oral suspension 30 mL 30 mL, oral, Daily PRN, constipation, Starting on Thu12/18/21 at 2123 mineral oil (FLEET MINERAL OIL) enema 1 enema 1 enema, rectal, Daily PRN, constipation, if no results 24 hours after bisacodyl, Starting on Thu12/18/21 at 2123, Indications: constipation ondansetron (ZOFRAN) injection 4 mg(Linked Group 1) 4 mg, intravenous, Administer over 2 Minutes, Every 6 hours PRN, nausea, vomiting, if not tolerating PO, Starting on Thu12/18/21 at 0639, Indications: Nausea and Vomiting 0714 (Given - Provider: Roxy Denney RN)1407 ([facility] Hold - Provider: Automatic Transfer Provider - Reason: Patient not available)1642 ([facility] Unhold - Provider: Mary Tobin RN) ondansetron ODT (ZOFRAN-ODT) disintegrating tablet 4 mg(Linked Group 1) 4 mg, oral, Every 6 hours PRN, nausea, vomiting, Starting on Thu12/18/21 at 0639, Indications: Nausea and Vomiting 0714 (See Alternative - Provider: Roxy Denney RN)1407 ([facility] Hold - Provider: Automatic Transfer Provider - Reason: Patient not available)1642 ([facility] Unhold - Provider: Mary Tobin RN) polyethylene glycol (MIRALAX) packet 17 g 17 g, oral, Daily PRN, constipation, Starting on Thu12/18/21 at 0639, Indications: constipation 1407 ([facility] Hold - Provider: Automatic Transfer Provider - Reason: Patient not available)1642 ([facility] Unhold - Provider: Mary Tobin RN) sodium chloride 0.9% flush 0.5-20 mL 0.5-20 mL, intra-catheter, As needed, line care, Starting on Thu12/18/21 at 1318, Flush volume based on line type and size. Flush before and after each use. 1407 ([facility] Hold - Provider: Automatic Transfer Provider - Reason: Patient not available)1642 ([facility] Unhold - Provider: Mary Tobin RN) SUMAtriptan (IMITREX) tablet 50 mg 50 mg, oral, Once as needed, migraine, Starting on Thu12/18/21 at 1631, May repeat dose once in 2 hours if unresolved. Do not exceed 200 mg in 24 hours., Indications: Migraine Linked Groups Order Group 1: ondansetron ODT (ZOFRAN-ODT) disintegrating tablet 4 mgJump to med 4 mg, oral, Every 6 hours PRN, nausea, vomiting, Starting on Thu12/18/21 at 0639, Indications: Nausea and Vomiting Or ondansetron (ZOFRAN) injection 4 mgJump to med 4 mg, intravenous, Administer over 2 Minutes, Every 6 hours PRN, nausea, vomiting, if not tolerating PO, Starting on Thu12/18/21 at 0639, Indications: Nausea and Vomiting documented in this encounter Orders Medications Ordered That Rg ht Not Have Been Administered Count Last Ordered Date First Ordered Date bisacodyl EC (DULCOLAX EC) tablet 10 mg 1 0 12/18/2021 citalopram (CeleXA) tablet 10 mg 1 12/19/19 dicyclomine (BENTYL) capsule 20 mg 1 2021 haloperidol (HALDOL) injection 2 mg 1 12/18 hydrOXYzine (ATARAX) tablet 25 mg 1 022 hydrOXYzine (VISTARIL) capsule 25 mg 1 11/30 magnesium hydroxide (MILK OF MAGNESIA) 80 mg/mL (33.3 mg/mL as elemental magnesium) oral suspension 30 mL 1 12/18/2021 mineral oil (FLEET MINERAL O IL) enema 1 enema 1 12/18/2021 ondansetron ODT (ZOFRAN-ODT) disintegrating tablet 4 mg 1 12/18/2021 polyethylene glycol (MIRALAX) packet 17 g 2 12/18/2021 polyethylene glycol (MIRALAX) powder 238 g 1 12/18/2021 sodium chloride 0.9% flush 0.5-20 mL 1 11/30 sodium chloride 0.9% infusion 2 12/18/2021 SUMAtriptan (IMITREX) tablet 50 mg 1 2021 Diet Count Last Ordered Date First Orde red Date ADULT DISCHARGE DIET 1 12/20/2021 Nursing Count Last Ordered Date First Orde red Date DISCHARGE ACTIVITY 1 12/20/2021 DISCHARGE CALL PROVIDER 8 12/20/2021 DISCHARGE INSTRUCTIONS 1 12/20/2021 FOLLOW UP WITH ESTABLISHED PROVIDER 1 12/20 WEIGH PATIENT 1 12/18/2021 CORE MEASURES Count Last Ordered Date First Ord ered Date REASON FOR NO VTE PROPHYLAXIS AT ADMISSION 1 12/18/2021 Case Request Count Last Ordered Date First Orde red Date CASE REQUEST GI 1 12/18/2021 ADT Patient Update Count Last Ordered Date Firs t Ordered Date ED IP DECISION TO ADMIT 1 12/18/2021 documented in this encounter Care Teams [employer] Relationship Specialty Start Date End Date Parmjit Ewing MD PCP - General 12/31/20 Mere Landa NP Nurse Practitioner 02/07/20 Tico Burton MD Surgeon General Surgery 08/09/21 documented as of this encounter
--- OUTSIDE RECORDS SUMMARY | 2024-08-16 04:34 | XMS_ITS | Encounter Summary ---
Author Organization [facility] Address [address] [place] [address] Care Team Providers Care Child Development Instructor Name Role Phone Mere Landa NP Unavailable [phone] Parmjit Dai MD Primary Care Provider [phone] Tico Burton MD Unavailable [phone] Encounter Details Date Type Department Care Team (Late st Contact Info) Description 07/17/2022 Telephone [facility] Gastroenterology at [address] [place] [address] Keri Chamberlain MA Social History [...] on file Legal Sex Female 10:06 AM FINDING FASTENER Gender Identity Female 06/17/2024 7:02 AM CDT Sexual Orientation Not on file documented as of this encounter Miscellaneous Notes * Telephone Encounter - Corina Petersen MA - 07/18/2022 3:08 PM CST Pt aware of cleanse and will look in her my-chart for instructions. ING FASTENER * Telephone Encounter - Corina Petersen MA - 07/18/2022 9:17 AM CST Left detailed message that cleanse was sent to her my chart and if pt doesn't see it to call officeeither way to inform us or my chart a message that instructions are received. ING FASTENER * Telephone Encounter - Richard Gracia NP - 07/17/2022 4:16 PM FINDING FASTENER Okay, she needs to do a laxative cleanse as follows: ON THE DAY OF YOUR QUICK CLEANSE: Mix up 6 heaping capfuls/packets of Miralax in 1000 mls of water or electrolyte replacement drink. Drink mixture over 1-2 hours. When you first start drinking it; take 3 Bisacodyl tabs. Stay at home and near the toilet this day!! Electrolyte replacement solution: Gatorade, Powerade, Propel, Pedialyte, hydration packets (use sugar free/low sugar version if have diabetes). Stay well hydrated!! Please buy all items over the counter. When she notices bowel habits slowing down, she should add in 1 capful of Miralax and 1 Bisacodyl tab taken daily as needed. She can periodically do above cleanse if she needs to. Let me know if symptoms do not soon improve. ING FASTENER * Telephone Encounter - Corina Petersen MA - 07/17/2022 3:57 PM CST Patient took 2 Bentyl yesterday for cramping and takes this as needed. Pt takes 2 stool softeners QHS and Amitiza BID, pt took Miralax 1 capful mix with a cup of water but normally she does not take Miralax. Pt has not had a bowel movement in a week just little hard pieces of stool. Yes pt had diarrhea one week prior to the Constipation. Pt also reports stomach cramping on going always no start date with flare-ups. ING FASTENER * Telephone Encounter - Richard Gracia NP - 07/17/2022 1:35 PM FINDING FASTENER So it looks like she is supposed to be taking two stool softeners daily, Amitiza 24 mcg twice daily, and MiraLax as needed, and Bentyl as needed. How has she been taking these? What are her currently problematic symptoms? When did they start? Is she having diarrhea, was she having any obvious constipation before the diarrhea started? ING FASTENER * Telephone Encounter - Keri Chamberlain MA - 07/17/2022 9:00 AM CST Patient called stating that she is having an ibs flare and would like to know what she could do at home, will her call her back to let her know ING FASTENER documented in this encounter Plan of Treatment Upcoming Encounters Date Type Department Care Team (Latest Contact Info) Description 09/07/2024 8:30 AM FINDING FASTENER Hospital Encounter [facility] [address] [place] [address] Forest Catherine MD [address] [place] [address] 09/07/2024 8:30 AM FINDING FASTENER - 09/07/2024 9:00 AM FINDING FASTENER Surgery [facility] [address] [place] [address] Forest Catherine MD [address] [place] [address] EGD w/Endo Flip & YI placement Scheduled Procedures Name Priority Associated Diagnoses Date/Ti me ESOPHAGOGASTRODUODENOSCOPY Hiatal hernia Gastroesophageal reflux disease, unspecified whether esophagitis present 09/07/2024 8:30 AM FINDING FASTENER documented as of this encounter Visit Diagnoses Not on filedocumented in this encounter Care Teams Child Development Instructor Relationship Specialty Start Date End Date Parmjit Dai MD PCP - General 12/31/20 Mere Landa NP Nurse Practitioner 02/07/20 Tico Burton MD Surgeon General Surgery 08/09/21 documented as of this encounter
--- OUTSIDE RECORDS SUMMARY | 2024-08-16 04:34 | XMS_ITS | Encounter Summary ---
Author Organization [facility] Address [address] [place] [address] Care Team Providers Care Unit Receptionist Name Role Phone Mere Landa NP Unavailable [phone] Parmjit Dai MD Primary Care Provider [phone] Tico Burton MD Unavailable [phone] Reason for Visit * Reason Comments Follow-up Irritable Bowel Syndrome Patient here fo r a 6 week follow up. Patient reports IBS flair up x 1 week reports diarrhea. Diarrhea Encounter Details Date Type Department Care Team (Latest Contact Info) Description 01/17/2022 2:30 PM CDT Office Visit [facility] Gastroenterology at [address] [place] [address] Richard Bowman NP [address] [place] [address] [address] [place] [address] Irritable bowel syndrome with both constipation and diarrhea (Primary Dx); Chronic nausea; Cyclic vomiting syndrome; Gastroesophageal reflux disease with esophagitis without hemorrhage; Chronic superficial gastritis without bleeding; History of repair of hiatal hernia; History of colonoscopy with polypectomy; Chronic anemia Social History Tobacco Use Types Packs/Day Years [...] on file Legal Sex Female 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 AM 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 Gender Identity Female 06/17/2024 7:02 AM CDT Sexual Orientation Not on file documented as of this encounter Last Filed Vital Signs Vital Sign Reading Time Taken Comments Blood Pressure 90/62 01/17/2022 2:20 PM CDT Pulse 83 01/17/2022 2:20 PM CDT Temperature - - Respiratory Rate - - Oxygen Saturation 98% 01/17/2022 2:20 PM CDT Inhaled Oxygen Concentration - - Weight 63.5 kg (140 lb) 01/17/2022 2:20 PM CDT Height 162.6 cm (5' 4 ) 01/17/2022 2:20 PM CDT Body Mass Index 24.03 01/17/2022 2:20 PM CDT documented in this encounter Ordered Prescriptions Prescription Sig Dispense Quantity Refills Last Filled Start Date End Date doxycycline (ADOXA) 100 mg tablet Take 1 tablet (100 mg total) by mouth 2 (two) times a day for 10 days 20 tablet 01/17/2022 01/27/2022 documented in this encounter Progress Notes * Richard Gracia NP - 01/17/2022 2:30 PM CDT Images from the original note were not included. PATIENT DEMOGRAPHICS Sarahy Gill is a 51 y.o. White female. PATIENT'S CARE TEAM Patient Care Team: Parmjit Dai MD as PCP - General Mere Landa NP (Nurse Practitioner) Tico Burton MD as Surgeon (General Surgery) EMOGRAPHICS CHIEF COMPLAINT Chief Complaint Patient presents with ??? Follow-up ??? Irritable Bowel Syndrome Patient here for a 6 week follow up. Patient reports IBS flair up x 1 week reports diarrhea. ??? Diarrhea HPI New or existing patient visit: Existing. Referring Provider: Parmjit Dai MD Nkechi is here today with her significant other for follow up. WILLEM with me was 12/16; weight is stable since that time. She was hospitalized on 12/17 with nausea without vomiting, abdominal pain, and alternating constipation/ diarrhea. All of these are chronic issues. She had an EGD during her hospital stay with Dr. Sorto that showed mild chronic inactive gastritis along with mild reflux esophagitis changes, but was otherwise normal. Advised to continue Protonix 40 mg daily and she has. Nortriptyline 25 mg daily was added and she believes it offers positive benefit and is helping her sleepbetter at night. Has not had any vomiting since getting out of the hospital, but still having ongoing nausea issues although they are better than they were in the past. She still alternates between constipation and diarrhea. No recent skipped days on her bowel movements. Had diarrhea yesterday. No BM today. Started on Amitiza 24 micro g b.i.d. at her last visit and she feels that it has offered positive benefit and she would like to continue it. She is also using Pericolace and Miralax as needed, but needs them less than she used to. No bright red blood per rectum or rectal pain. Appetite is not great, but is improving. She stay away from spicy foods. Heartburn and reflux are well controlled on Protonix 40 mg daily. Only occasionally having breakthrough symptoms. Has a history of hiatal hernia repair in 2012. No mention of recurrent hernia or loose wrap on her recent EGD. She does not take NSAIDs. She is on chronic anticoagulation. She takes Tylenol for her aches and pains. She chronically uses marijuana on a routine basis, which could potentially contribute to her nausea issues. Uses Zofran p.r.n. for the nausea with positive benefit. Used to have a lot of cyclic vomiting, but hon estly does not vomit very much anymore. She called yesterday with a lot of cramping and bloating issues. Had not been taking her Bentyl since getting out of the hospital so she was advised that it was okay to take. She was worried about combining it with nortriptyline. She took a few doses of Bentyl yesterday and it is helping the pain/cramping. I had previously mentioned at her last office visitsending her for a hydrogen breath test to rule out the possibility of SIBO, but she did not really want to drive to [facility] for the test. I also ordered a celiac screening and fecal elastaselevels, but these did not get done. She has a history of chronic mild anemia with baseline hemoglobin in the 10s and 11s, but it looks like her hemoglobin was down to the 9s at hospital discharge so will likely reassess. GB previously surgically removed. Former smoker. Vapes nicotine. No alcohol use. Answers for HPI/ROS submitted by the patient on 01/16/2022 Chronicity: chronic Onset: in the past 7 days Onset quality: gradual Frequency: constantly Episode duration: 1 weeks Progression since onset: gradually worsening Pain location: generalized abdominal region Pain - numeric: 6/10 Pain quality: aching, burning, cramping, a sensation of fullness Radiates to: LUQ, RUQ, back anorexia: No arthralgias: Yes belching: No constipation: Yes diarrhea: Yes dysuria: Yes fever: No flatus: Yes frequency: Yes headaches: No hematochezia: No hematuria: No melena: No myalgias: Yes nausea: Yes weight loss: Yes vomiting: No Aggravated by: eating, movement, vomiting Relieved by: being still, certain positions, passing flatus, recumbency Diagnostic workup: CT scan, GI consult, upper endoscopy MEDICAL HISTORY Patient's active problem list, medical history, surgical history, social history, and family history were reviewed and updated as needed. Patient Active Problem List Diagnosis Date Noted ??? Chronic superficial gastritis without bleeding 01/17/2022 [...] syndrome 08/09/2021 ??? Bipolar affect, depressed (CMS/HCC) ([facility]) 08/09/2021 ??? Intussusception intestine (CMS/HCC) ([facility]) 08/09/2021 ??? Hypertension 08/08/2021 ??? Abdominal pain, generalized 08/08/2021 ??? Atrial fibrillation (CMS/HCC) ([facility]) 05/15/2020 ??? Essential tremor 10/12/2018 ??? Jerky body movements 10/12/2018 ??? Irritable bowel syndrome with both constipation and diarrhea 02/23/2018 ??? Orthostatic dizziness 09/16/2016 ??? Palpitations 07/29/2016 ??? Migraine headache 07/29/2016 Past Medical History: Diagnosis Date ??? Anxiety ??? Arthritis ??? Bipolar affect, depressed (CMS/HCC) (HCC) ??? Cyclic vomiting syndrome ??? Depression ??? Headache, tension-type ??? Hypertension ??? Migraine ??? Stroke (CMS/HCC) ([facility]) ??? Weight loss Past Surgical History: Procedure Laterality Date ??? ABDOMINAL SURGERY 2013 hiatel hernia repair ??? ARTHROSCOPIC SURGERY Left 1985,1995,2002 knee ??? SECTION 1993 ??? CHOLECYSTECTOMY ??? ENDOMETRIAL ABLATION ??? HERNIA [...] Used ??? Tobacco comment: off and on Vaping Use ??? Vaping Use: Every day ??? Start date: 10/02/2014 ??? Substances: Nicotine, Flavoring ??? Devices: Pre-filled or refillable cartridge, Refillable tank Substance Use Topics ??? Alcohol use: No Comment: on occasion ??? Drug use: Yes Types: Marijuana Comment: occasionally MEDICATIONS Current Outpatient Medications: ??? apixaban (ELIQUIS) [...] (EFFEXOR-XR) 37.5 mg 24 hr capsule ??? doxycycline (ADOXA) 100 mg tablet Medications were reviewed and updated [...] problematic depression, problematic anxiety. PHYSICAL EXAM BP 90/62 (BP Location: Right arm, Patient Position: Sitting) Pulse 83 Ht 162.6 cm (5' 4 ) Wt 63.5 kg (140 lb) SpO2 98% BMI 24.03 kg/m?? No LMP recorded. Patient is postmenopausal. [...] 5 year surveillance colonoscopy schedule. Admission on 12/17/2021, Discharged on 12/20/2021 Component Date Value ??? WBC 12/17/2021 14.3 (A) ??? Hgb 12/17/2021 11.7 (A) ??? Hct 12/17/2021 36.2 ??? Plt 12/17/2021 320 ??? MPV 12/17/2021 10.6 ??? RBC 12/17/2021 4.38 ??? MCV 12/17/2021 82.6 ??? MCH 12/17/2021 26.7 (A) ??? MCHC 12/17/2021 32.3 ??? RDW CV 12/17/2021 15.5 (A) ??? RDW SD 12/17/2021 46.9 ??? NRBC abs 12/17/2021 0.00 ??? Sodium 12/17/2021 140 ??? Potassium, pl 12/17/2021 4.0 ??? Chloride 12/17/2021 103 ??? CO2 12/17/2021 25 ??? Anion gap 12/17/2021 12 ??? BUN 12/17/2021 9 ??? Creatinine 12/17/2021 0.70 ??? Glucose 12/17/2021 101 ??? Calcium 12/17/2021 9.7 ??? Bilirubin, total 12/17/2021 0.3 ??? Protein, pl 12/17/2021 7.7 ??? Albumin 12/17/2021 4.7 ??? Alk phos 12/17/2021 107 ??? ALT 12/17/2021 10 ??? AST 12/17/2021 22 ??? Lipase 12/17/2021 38 ??? Color, ur 12/17/2021 Yellow ??? Clarity, ur 12/17/2021 Clear ??? Specific gravity, ur 12/17/2021 1.010 ??? pH, urine 12/17/2021 6.5 ??? Protein, ur ql 12/17/2021 Negative ??? Glucose, ur ql 12/17/2021 Negative ??? Ketones, ur 12/17/2021 Negative ??? Bilirubin, ur 12/17/2021 Negative ??? Blood, ur 12/17/2021 Negative ? ? Urobilinogen, ur 12/17/2021 <2.0 ??? Nitrite, ur 12/17/2021 Negative ??? Leukocyte esterase, ur 12/17/2021 Negative ??? UA reflex comment 12/17/2021 Reflex conditions for microscopic UA and culture not met. ??? Neutrophil abs 12/17/2021 11.4 (A) ??? Imm gran abs 12/17/2021 0.0 ??? Lymphocyte abs 12/17/2021 2.1 ??? Monocyte abs 12/17/2021 0.7 ??? Eosinophil abs 12/17/2021 0.1 ??? Basophil abs 12/17/2021 0.0 ??? Neutrophil pct 12/17/2021 79.7 ??? Imm gran pct 12/17/2021 0.3 ??? Lymphocyte pct 12/17/2021 14.4 ??? Monocyte pct 12/17/2021 5.0 ??? Eosinophil pct 12/17/2021 0.3 ??? Basophil pct 12/17/2021 0.3 ??? eGFR 12/17/2021 103 ??? Lactate 12/17/2021 1.0 ??? Amphetamine, ur 12/17/2021 Not Detected ??? Barbiturates, ur 12/17/2021 Not Detected ??? Benzodiazepines, ur 12/17/2021 Not Detected ??? Cannabinoids, ur 12/17/2021 Detected (A) ??? Cocaine, ur 12/17/2021 Not Detected ??? Fentanyl, Ur 12/17/2021 Not Detected ??? Methadone, ur 12/17/2021 Not Detected ??? Opiates, ur 12/17/2021 Not Detected ??? Oxycodone, ur 12/17/2021 Not Detected ??? Phencyclidine, ur 12/17/2021 Not Detected ??? Urine Creatinine 12/17/2021 101 ??? COVID-19 RNA 12/18/2021 Negative ??? Influenza A RNA 12/18/2021 Negative ??? Influenza B RNA 12/18/2021 Negative ??? RSV RNA 12/18/2021 Negative ??? WBC 12/19/2021 10.3 (A) ??? Hgb 12/19/2021 9.1 (A) ??? Hct 12/19/2021 29.3 (A) ??? Plt 12/19/2021 230 ??? MPV 12/19/2021 11.1 ??? RBC 12/19/2021 3.42 (A) ??? MCV 12/19/2021 85.7 ??? MCH 12/19/2021 26.6 (A) ??? MCHC 12/19/2021 31.1 (A) ??? RDW CV 12/19/2021 16.3 (A) ??? RDW SD 12/19/2021 51.1 (A) ??? NRBC abs 12/19/2021 0.00 ??? Sodium 12/19/2021 143 ??? Potassium, pl 12/19/2021 3.5 ??? Chloride 12/19/2021 108 ??? CO2 12/19/2021 26 ??? Anion gap 12/19/2021 10 ??? BUN 12/19/2021 11 ??? Creatinine 12/19/2021 0.79 ??? Glucose 12/19/2021 99 ??? Calcium 12/19/2021 8.7 ??? eGFR 12/19/2021 89 GI ASSESSMENT/PLAN (K58.2) Irritable bowel syndrome with both constipation and diarrhea (primary encounter diagnosis) Chronic condition. Constipation predominant with some diarrhea at times. Improving, but not quite well controlled. She will continue the Amitiza without change as it does seem to offer positive benefit. She will continue to use Mitzi Colace and MiraLax as needed. She will continue Bentyl p.r.n.. Shewill continue nortriptyline 25 mg at HS. She was again given a handout with high and low FODMAP foods. Advised to focus on the low FODMAP foods and to avoid the high FODMAP foods. Discussed cutting out lactose to see if it offers positive benefit. Discussed the possibility of having her do independent food sensitivity testing. Examples provided. Celiac sprue screening order provided to patient to complete. Ordered at last visit, but not completed by patient. Duodenum appeared normal on recent EGD, which makes this less likely to be an issue, but I still would like the testing done. She was also given an order to check pancreatic elastase levels to assess for EPI; originally ordered at [facility], but not yet done. Encouraged to complete outstanding labs, if possible! Also, going to treat for possible SIBO with a course of doxycycline to see if offers positive benefit. If it does offer positivebenefit, but symptoms eventually return, will [facility] so that if abnormal, can hopefully qualify her for a round of rifaximin. Will see how her symptoms do and go from there. Potential side effects of doxycycline discussed with patient. (R11.0) Chronic nausea Chronic issue. Remains problematic. Can continue Zofran p.r.n.. Going to treat for possible SIBO with a course of doxycycline to see if offers positive benefit. If it does offer positive benefit, butsymptoms eventually return, will try to get the hydrogen breath test completed for her through [facility] so that if abnormal, can hopefully qualify her for a round of rifaximin. Will see how her symptoms do and go from there. Gastric emptying study scheduled for 01/14. Ordered at last office visit. (R11.15) Cyclic vomiting syndrome No recent issues with vomiting, but have to keep in mind she may have a component of cannabis hyperemesis syndrome, given her chronic cannabis use. Will keep this in mind if vomiting returns. She will continue nortriptyline 25 mg daily as it does offer positive benefit for her chronic GI symptoms and sleep. (K21.00) Gastroesophageal reflux disease with esophagitis without hemorrhage (K29.30) Chronic superficial gastritis without bleeding Chronic GERD symptoms are well controlled with rare breakthrough symptoms as long as she takes Protonix 40 mg daily. Recent EGD showed mild chronic reflux esophagitis changes and inactive gastritis. Given her chronic anticoagulation and chronic upper GI symptoms, will have her continue it without change for now to reduce her risk of upper GI issues in the future. She will continue to avoid NSAIDsand alcohol. (Z98.890, Z87.19) History of repair of hiatal hernia Has had no recurrence of hiatal hernia. Will monitor. (Z98.890, Z86.010) History of colonoscopy with polypectomy Due for surveillance colonoscopy in 2024. (D64.9) Chronic anemia Chronic issue. Slightly worse at time of hospital discharge. Likely related to hemodilution from IVfluids. Will reassess to make sure it is improving. No concerns for active GI bleed at this time, based on symptomatology. Orders Placed This Encounter Procedures ??? CBC with auto differential Standing Status: Future Number of Occurrences: 1 Standing Expiration Date: 01/17/2023 New Medications Ordered This Visit Medications ??? doxycycline (ADOXA) 100 mg tablet Sig: Take 1 tablet (100 mg total) by mouth 2 (two) times a day for 10 days Dispense: 20 tablet Refill: 0 Return in about 6 weeks (around 02/28/2022) for IBS, GERD, Nausea . Medication(s) and/or immunization(s) uses and side effects briefly discussed. Patient verbalizes understanding of all instructions provided today and agrees with plan. Total time spent on the date of the yotr-ps-aleu encounter, including both njcq-ro-yulp time (including staff/provider time spent providing education) and ljw-xlpv-zw-face time (pre-charting, reviewing chart, post-charting) was 30 minutes. This note is dictated and transcribed by [employer]. Pitch Filler variances may occur. Despite proofreading, typographical errors may occur. My collaborating physician is Dr. Germania Sorto- Gastroenterology. Richard Gracia NP documented in this encounter Plan of Treatment Upcoming Encounters Date Type Department Care Team (Latest Contact Info) Description 09/07/2024 8:30 AM 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 Hospital Encounter [facility] [address] [place] [phone] Forest Catherine MD [address] [place] [id number] 09/07/2024 8:30 AM 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 - 09/07/2024 9:00 AM 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 Surgery [facility] [address] [place] [phone] Forest Catherine MD [address] [address] EGD w/Endo Flip & YI placement Scheduled Procedures Name Priority Associated Diagnoses Date/Ti me ESOPHAGOGASTRODUODENOSCOPY Hiatal hernia Gastroesophageal reflux disease, unspecified whether esophagitis present 09/07/2024 8:30 AM 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 documented as of this encounter Results * (ABNORMAL) CBC with auto differential (01/17/2022 2:53 PM CDT) WBC 9.6 3.8 - 9.9 K/cumm [facility] Hgb 11.5(L) 11.9 - 15.5 g/dL [facility] Hct 36.1 35.6 - 45.5 % [facility] Plt 353 150 - 400 K/cumm [facility] MPV 10.9 9.1 - 12.3 fL [facility] RBC 4.12 3.90 - 5.20 M/cumm [facility] MCV 87.6 81.3 - 96.4 fL [facility] MCH 27.9 27.1 - 33.3 pg [facility] MCHC 31.9(L) 32.3 - 35.7 g/dL [facility] RDW CV 17.0(H) 11.1 - 14.9 % [facility] RDW SD 54.7(H) 35.7 - 48.1 fL [facility] NRBC abs 0.00 0.00 - 0.01 K/cumm [facility] Blood 01/17/2022 2:53 PM CDT 01/17/2022 5:37 PM CDT Richard Bowman NP LAB BLOOD ORDERABLE S Final Result [facility] [place] [address] documented in this encounter Visit Diagnoses Diagnosis Irritable bowel syndrome with both constipation and diarrhea- Primary Chronic nausea Nausea alone Cyclic vomiting syndrome Persistent vomiting Gastroesophageal reflux disease with esophagitis without hemorrhage Chronic superficial gastritis without bleeding History of repair of hiatal hernia History of colonoscopy with polypectomy Other postprocedural status Chronic anemia Unspecified anemia Hiatal hernia Diaphragmatic hernia without mention of obstruction or gangrene Gastroesophageal reflux disease, unspecified whether esophagitis present documented in this encounter Discontinued Medications Medication Sig Discontinue Reason Start Date End Da te hydrOXYzine (ATARAX) 50 mg tablet Take 50 mg by mouth 3 (three) times a day Duplicate order 01/09/2022 01/17/2022 documented as of this encounter Historical Medications * This list may reflect changes made after this encounter. hydrOXYzine (ATARAX) 50 mg tablet Take 50 mg by mouth 3 (three) times a day 01/09/2022 01/17/2022 added in this encounter Care Teams Unit Receptionist Relationship Specialty Start Date End Date Parmjit Dai MD PCP - General 12/31/20 Mere Landa V. BURGLAR ALARM OPERATOR Nurse Practitioner 02/07/20 Tico Burton MD Surgeon General Surgery 08/09/21 documented as of this encounter
--- OUTSIDE RECORDS SUMMARY | 2024-08-16 04:34 | XMS_ITS | Encounter Summary ---
Author Organization [facility] Address [address] [place] [address] Care Team Providers Care Manager Trade Marketing Name Role Phone Mere Landa NP Unavailable [phone] Parmjit Dai MD Primary Care Provider [phone] Tico Burton MD Unavailable + [phone] Reason for Visit * Reason Comments Multiple Medical Complaints Encounter Details Date Type Department Care Team (Late st Contact Info) Description 08/18/2022 8:18 AM TOUR BUS DRIVER/GUIDE - 08/18/2022 8:36 AM [facility] Emergency [facility] Emergency Department [address] [place] [address] Juve Sheldon MD [address] [place] [id number] Nausea and vomiting, unspecified vomiting type (Primary Dx) Discharge Disposition: Discharge to home [...] you are drinking? Patient does not drink 10/04/202 2 Q3: How often do you have si x or more drinks on one occasion? Never 06/03/2022 PHQ-2 Answer Date Recorded PHQ-2 Total Score (If total score is 3 or more points, staff should administer the PHQ-9) 0 08/09/2021 Comments No Sex and Gender Information Value Date Recorded Sex Assigned at Not on file Legal Sex Female 10:06 AM TOUR BUS DRIVER/GUIDE Gender Identity Female 06/17/2024 7:02 AM CDT Sexual Orientation Not on file documented as of this encounter Last Filed Vital Signs Vital Sign Reading Time Taken Comments Blood Pressure 121/88 08/18/2022 7:03 AM TOUR BUS DRIVER/GUIDE Pulse 85 08/18/2022 7:03 AM TOUR BUS DRIVER/GUIDE Temperature 36.4 ??C (97.6 ??F) 08/18/2022 7:03 AM CS T Respiratory Rate 16 08/18/2022 7:03 AM TOUR BUS DRIVER/GUIDE Oxygen Saturation 100% 08/18/2022 7:03 AM TOUR BUS DRIVER/GUIDE Inhaled Oxygen Concentration - - Weight 63.5 kg (140 lb) 08/18/2022 7:03 AM TOUR BUS DRIVER/GUIDE Height 162.6 cm (5' 4 ) 08/18/2022 7:03 AM TOUR BUS DRIVER/GUIDE Body Mass Index 24.03 08/18/2022 7:03 AM TOUR BUS DRIVER/GUIDE documented in this encounter Discharge Instructions * Discharge Instructions* Juve Sheldon MD - 08/18/2022 8:34 AM TOUR BUS DRIVER/GUIDE Take your Zofran as directed BUS DRIVER/GUIDE * Attachments The following attachments cannot be sent through Care Everywhere. * Acute Nausea and Vomiting (Discharge Care) (Ethiopian) documented in this encounter Medications at Time [...] ED Notes * Juve Sheldon MD - 08/18/2022 8:24 AM CST HPI Chief Complaint Patient presents with Multiple Medical Complaints Patient is a 52-year-old female who presents emergency room, again, complaining of nausea vomiting.Patient was discharged from this facility approximately 2-3 hours ago for the same. No fevers or chills. No abdominal pain or urinary symptoms or diarrhea. No respiratory complaints. Patient also states that the back of my throat is yellow . Patient has a history of cyclic vomiting and has Zofran at home. Patient became quite belligerent during examination-not happy that her repeat blood work was essentially unremarkable from before. No aggravating alleviating factors. There is no other complaints of further review of symptoms negative Patient History: Patient Active Problem List Diagnosis [...] vomiting syndrome 08/09/2021 Bipolar affect, depressed (CMS/HCC) ([facility]) 08/09/2021 Intussusception intestine (CMS/HCC) ([facility]) 08/09/2021 Hypertension 08/08/2021 Abdominal pain, generalized 08/08/2021 Atrial fibrillation (CMS/HCC) ([facility]) 05/15/2020 Essential tremor 10/12/2018 Jerky body movements 10/12/2018 Irritable bowel syndrome with both constipation and diarrhea 02/23/2018 Orthostatic dizziness 09/16/2016 Palpitations 07/29/2016 Migraine headache 07/29/2016 Past Medical History: Diagnosis Date A-fib (CMS/HCC) ([facility]) Anxiety Arthritis Bipolar affect, depressed (CMS/HCC) ([facility]) Cyclic vomiting syndrome Depression Headache, tension-type Hypertension Hypotension IBS (irritable bowel syndrome) Migraine Stroke (CMS/[facility]) ([facility]) Weight loss [...] file Review of Systems Review of Systems All other systems reviewed and are negative. Physical Exam ED Triage Vitals [08/18/22 0703] Temp Pulse Resp BP SpO2 36.4 ??C (97.6 ??F) 85 16 121/88 100 % Temp src Heart Rate Source Patient Position BP Location FiO2 (%) Temporal -- -- -- -- Height Height Method Weight Weight Method 1.626 m (5' 4 ) Stated 63.5 kg (140 lb) Stated Physical Exam Vitals and nursing note reviewed. Constitutional: General: She is not in acute distress. Appearance: She is not ill-appearing, toxic-appearing or diaphoretic. HENT: Head: Normocephalic and atraumatic. Mouth/Throat: Mouth: Mucous membranes are moist. Pharynx: Oropharynx is clear. No oropharyngeal exudate or posterior oropharyngeal erythema. Eyes: Extraocular Movements: Extraocular movements intact. Conjunctiva/sclera: Conjunctivae normal. Pupils: Pupils are equal, round, and reactive to light. Cardiovascular: Rate and Rhythm: Normal rate and regular rhythm. Pulses: Normal pulses. Pulmonary: Effort: Pulmonary effort is normal. No respiratory distress. Breath sounds: Normal breath sounds. No wheezing. Abdominal: General: There is no distension. Palpations: Abdomen is soft. There is no mass. Tenderness: There is no abdominal tenderness. Musculoskeletal: General: Normal range of motion. Cervical back: Normal range of motion. No rigidity. Skin: General: Skin is warm and dry. Capillary Refill: Capillary refill takes less than 2 seconds. Neurological: Mental Status: She is alert and oriented to person, place, and time. Gait: Gait normal. Psychiatric: Thought Content: Thought content normal. [facility] ED Course as of 08/18/22833 Time: 08/18 803 Comment: Patient states I think I am just going to leave . By: Juve Sheldon MD Final diagnoses: Nausea and vomiting, unspecified vomiting type Juve Sheldon MD 08/18/22833 BUS DRIVER/GUIDE * Araseli Kong RN - 08/18/2022 6:57 AM CST Pt returns to ED c/o sore throat since last night and pelvic pain, N/V Denies injury. Emesis x 2 athome with constipation. Pt states she was here yesterday c/o afib. PmHx: cyclic vomiting, IBS, Afib BUS DRIVER/GUIDE BUS DRIVER/GUIDE documented in this encounter Plan of Treatment Upcoming Encounters Date Type Department Care Team (Latest Contact Info) Description 09/07/2024 8:30 AM TOUR BUS DRIVER/GUIDE Hospital Encounter [facility] [address] [place] [phone] Forest Catherine MD [address] [address] 09/07/2024 8:30 AM TOUR BUS DRIVER/GUIDE - 09/07/2024 9:00 AM TOUR BUS DRIVER/GUIDE Surgery [facility] [address] [place] [phone] Forest Catherine MD [address] [address] EGD w/Endo Flip & YI placement Scheduled Procedures Name Priority Associated Diagnoses Date/Ti me ESOPHAGOGASTRODUODENOSCOPY Hiatal hernia Gastroesophageal reflux disease, unspecified whether esophagitis present 09/07/2024 8:30 AM TOUR BUS DRIVER/GUIDE documented as of this encounter Procedures Procedure Name Priority Date/Time Associated Diagnosis Comments EGFR STAT 08/18/2022 7:21 AM TOUR BUS DRIVER/GUIDE DIFFERENTIAL AUTO STAT 08/18/2022 7:2 1 AM TOUR BUS DRIVER/GUIDE URINALYSIS AND REFLEX TO MICROSCOPIC AND CULTURE STAT 08/18/2022 7:21 AM TOUR BUS DRIVER/GUIDE CBC WITH AUTO DIFFERENTIAL STAT 08/18/2022 7:21 AM TOUR BUS DRIVER/GUIDE URINALYSIS, MICROSCOPIC ONLY STAT 08/18/2022 7:21 AM TOUR BUS DRIVER/GUIDE COMPREHENSIVE METABOLIC PANEL STAT 08/18/2022 7:21 AM TOUR BUS DRIVER/GUIDE documented in this encounter Results * eGFR (08/18/2022 7:21 AM TOUR BUS DRIVER/GUIDE) eGFR 103 mL/min/1. 73 m2 [facility] ([place]) Comment: Interpretive Data Reference Interval Normal ?>/= [...] of Race in Diagnosing Kidney Disease, JASN 202). The CKD-EPI equation should not be used for patients with unstable renal function and has not been validated in children and those over 70. Current interpretive data was last reviewed 2021. Blood 08/18/2022 7:21 AM TOUR BUS DRIVER/GUIDE 08/18/2022 7:24 AM TOUR BUS DRIVER/GUIDE us Juve Sheldon MD LAB BLOOD ORDERABLES Final Re sult [facility] ([place]) 1 [facility] Department [place] [address] * (ABNORMAL) Urinalysis, microscopic only (08/18/2022 7:21 AM TOUR BUS DRIVER/GUIDE) WBC, ur 0-5 0 - 5 /HPF [facility] ([place]) RBC, ur 0-2 0 - 2 /HPF [facility] ([place]) Epithelial cells, squamous, ur 1-5 0 - 5 /HPF [facility] ([place]) Bacteria, ur 4+(A) [facility] ([place]) Mucous, ur Present(A) [facility] ([place]) Culture Reflex Comment Reflex conditions for urine culture (WBC >10) not met. [facility] ([place]) Urine, bladder 08/18/2022 7 :21 AM TOUR BUS DRIVER/GUIDE 08/18/2022 7:24 AM TOUR BUS DRIVER/GUIDE us Juve Sheldon MD LAB URINE ORDERABLES Final Re sult [facility] ([place]) 1 [facility] Department [place] [address] * (ABNORMAL) Differential, auto (08/18/2022 7:21 AM TOUR BUS DRIVER/GUIDE) Neutrophil abs 8.7(H) 1.7 - 6.5 K/cumm [facility] ([place]) Imm gran abs 0.0 0.0 - 0.1 K/cumm [facility] ([place]) Lymphocyte abs 1.5 0.8 - 3.3 K/cumm [facility] ([place]) Monocyte abs 0.8 0.2 - 0.8 K/cumm [facility] ([place]) Eosinophil abs 0.0 0.0 - 0.5 K/cumm [facility] ([place]) Basophil abs 0.0 0.0 - 0.1 K/cumm [facility] ([place]) Neutrophil pct 78.6 % [facility] ([place]) Comment: Interpretive [...] was last revised on 2017. Lymphocyte pct 13.2 % [facility] ([place]) Comment: Interpretive Data Percent cell count reference ranges are not reported, since discordance with absolute values may lead to misinterpretation of CBC data. Current Interpretive Data was last revised on 2017. Monocyte pct 7.4 % [facility] ([place]) Comment: Interpretive Data Percent cell count reference ranges are not reported, since discordance with absolute values may lead to misinterpretation of CBC data. Current Interpretive Data was last revised on 2017. Eosinophil pct 0.2 % [facility] ([place]) Comment: Interpretive [...] Data was last revised on 2017. Blood 08/18/2022 7:21 AM TOUR BUS DRIVER/GUIDE 08/18/2022 7:24 AM TOUR BUS DRIVER/GUIDE us Juve Sheldon MD LAB BLOOD ORDERABLES Final Re sult [facility] ([place]) 1 [facility] Department [place] [address] * (ABNORMAL) Urinalysis reflex to microscopic and culture Urine, bladder (08/18/2022 7:21 AM TOUR BUS DRIVER/GUIDE) Color, ur Yellow Yellow [facility] ([place]) Clarity, ur Turbid(A) Clear [facility] ([place]) Specific gravity, ur 1.016 1.003 - 1.030 [facility] ([place]) pH, urine 6.5 [facility] ([place]) Protein, ur ql Trace Negative [facility] ([place]) Glucose, ur ql 1+(A) Negative [facility] ([place]) Ketones, ur Negative Negative [facility] ([place]) Bilirubin, ur Negative Negative [facility] ([place]) Blood, ur Negative Negative [facility]) Urobilinogen, ur <2.0 <2.0 mg/dL [facility] ([place]) Nitrite, ur Negative Negative [facility] ([place]) Leukocyte esterase, ur 2+(A) Negative [facility] ([place]) UA reflex comment Reflex to microscopic UA will be performed. [facility] ([place]) Urine, bladder 08/18/2022 7: 21 AM TOUR BUS DRIVER/GUIDE 08/18/2022 7:24 AM TOUR BUS DRIVER/GUIDE Narrative [facility] ([place]) - 08/18/2022 7:28 AM TOUR BUS DRIVER/GUIDE ?? Urine pH is affected by diet, medications, systemic acid-base disturbances, and renal tubular function. ??pH may affect urinary stone formation. ??For example, urine pH below 6.0 may help reduce the tendency for calcium phosphate stones and pH greater than 6.0 may reduce the tendency for uric acid stone formation. Source: [employer] Last revised 09-10-2017 us Juve Sheldon MD LAB MICROBIOLOGY - GENERAL OR DERABLES Final Result [facility] ([place]) 1 [facility] Department [place] [address] * (ABNORMAL) Comprehensive metabolic panel (08/18/2022 7:21 AM TOUR BUS DRIVER/GUIDE) Sodium 138 135 - 145 mmol/L [facility] ([place]) Potassium, pl 3.1(L) 3.3 - 4.9 mmol/L [facility] ([place]) Chloride 102 97 - 110 mmol/L [facility]) CO2 25 22 - 32 mmol/L [facility]) Anion gap 11 2 - 15 mmol/L [facility]) BUN 10 8 - 25 mg/dL [facility]) Creatinine 0.70 0.60 - 1.10 mg/dL [facility] ([place]) Glucose 107 70 - 199 mg/dL [facility] ([place]) [...] interpretive data was last revised 2017. Calcium 9.1 8.5 - 10.3 mg/dL [facility] ([place]) Bilirubin, total 0.3 0.1 - 1.2 mg/dL [facility] ([place]) Protein, pl 7.5 6.5 - 8.5 g/dL [facility] ([place]) Albumin 4.3 3.5 - 5.0 g/dL [facility] ([place]) Alk phos 103 40 - 130 Units/L [facility]) ALT 15 7 - 45 Units/L [facility]) AST 24 10 - 45 Units/L [facility] ([place]) Blood 08/18/2022 7:21 AM TOUR BUS DRIVER/GUIDE 08/18/2022 7:24 AM TOUR BUS DRIVER/GUIDE us Juve Sheldon MD LAB BLOOD ORDERABLES [facility] 1 [facility] Department [place] [address] * (ABNORMAL) CBC with auto differential (08/18/2022 7:21 AM TOUR BUS DRIVER/GUIDE) WBC 11.1(H) 3.8 - 9.9 K/cumm [facility] ([place]) Hgb 10.9(L) 11.9 - 15.5 g/dL [facility] ([place]) Hct 34.3(L) 35.6 - 45.5 % [facility] ([place]) Plt 380 150 - 400 K/cumm [facility] ([place]) MPV 10.3 9.1 - 12.3 fL [facility]) RBC 3.94 3.90 - 5.20 M/cumm [facility] ([place]) MCV 87.1 81.3 - 96.4 fL [facility] ([place]) MCH 27.7 27.1 - 33.3 pg [facility]) MCHC 31.8(L) 32.3 - 35.7 g/dL [facility] ([place]) RDW CV 14.2 11.1 - 14.9 % [facility] ([place]) RDW SD 45.7 35.7 - 48.1 fL [facility] ([place]) NRBC abs 0.00 0.00 - 0.01 K/cumm [facility] ([place]) Blood 08/18/2022 7:21 AM TOUR BUS DRIVER/GUIDE 08/18/2022 7:24 AM TOUR BUS DRIVER/GUIDE Juve Sheldon MD LAB BLOOD ORDERABLES Final Re sult [facility] ([place]) 1 [facility] Department [place] [address] documented in this encounter Visit Diagnoses Diagnosis Nausea and vomiting, unspecified vomiting type- Primary Hiatal hernia Diaphragmatic hernia without mention of obstruction or gangrene Gastroesophageal reflux disease, unspecified whether esophagitis present documented in this encounter Care Teams Manager Trade Marketing Relationship Specialty Start Date End Date Parmjit Dai MD PCP - General 12/31/20 Mere Landa NP Nurse Practitioner 02/07/20 Tico Burton MD Surgeon General Surgery 08/09/21 documented as of this encounter
--- OUTSIDE RECORDS SUMMARY | 2024-08-16 04:34 | XMS_ITS | Encounter Summary ---
Author Organization [facility] Address [address] [place] [address] Care Team Providers Care Taxi Proprietor Name Role Phone Mere Landa NP Unavailable [phone] Parmjit Dai MD Primary Care Provider [phone] Tico Burton MD Unavailable [phone] Encounter Details Date Type Department Care Team (Late st Contact Info) Description 01/15/2022 Telephone [facility] Gastroenterology at [address] [place] [address] Richard Bowman NP [address] [place] [address] [address] [place] [address] Social History Tobacco Use Types [...] on file Legal Sex Female 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 Patient states that Nortriptyline is working and she will see you on 01/17/22 for visit. * Telephone Encounter - Richard Gracia NP - 01/15/2022 11:31 AM CDT To give the best guidance, I really need to know what her biggest problematic symptoms are. She cantake 20 mg of Bentyl up to 4 times daily For abdominal cramping and pain. She can take Protonix 40 mg daily, but I would recommend taking any more than that. I will send a script for p.r.n. famotidine that she can take daily as needed for breakthrough heartburn and reflux symptoms. Does she feel that the nortriptyline has offered a positive benefit? We started her on it at 25 mg a few weeks ago. If she has feels that it is helping, but not enough, let me know and I can increase dose. * Telephone Encounter - Corina Petersen MA - 01/15/2022 10:13 AM CDT Patient has an apt ThursdayJanuary 17 for a follow up on IBS and pt is currently having a flair up. Patient wants to know if she can take her Protonix more than once a day with the other medications that she is taking? Bentyl and Nortriptyline? documented in this encounter Plan of Treatment Upcoming Encounters Date Type Department Care Team (Latest Contact Info) Description 09/07/2024 8:30 AM WOOL WASHING MACHINE OPERATOR Hospital Encounter [facility] [address] [place] [phone] Forest Catherine MD [address] [place] [address] 09/07/2024 8:30 AM WOOL WASHING MACHINE OPERATOR - 09/07/2024 9:00 AM WOOL WASHING MACHINE OPERATOR Surgery [facility] [address] [place] [phone] Forest Catherine MD [address] [place] [address] EGD w/Endo Flip & YI placement Scheduled Procedures Name Priority Associated Diagnoses Date/Ti me ESOPHAGOGASTRODUODENOSCOPY Hiatal hernia Gastroesophageal reflux disease, unspecified whether esophagitis present 09/07/2024 8:30 AM WOOL WASHING MACHINE OPERATOR documented as of this encounter Visit Diagnoses Not on filedocumented in this encounter Care Teams Taxi Proprietor Relationship Specialty Start Date End Date Parmjit Dai MD PCP - General 12/31/20 Mere Landa NP Nurse Practitioner 02/07/20 Tico Burton MD Surgeon General Surgery 08/09/21 documented as of this encounter
--- OUTSIDE RECORDS SUMMARY | 2024-08-16 04:34 | XMS_ITS | Encounter Summary ---
Author Organization [facility] Address [address] [place] [address] Care Team Providers Care Incident Response Manager Name Role Phone Mere Landa NP Unavailable [phone] Parmjit Dai MD Primary Care Provider [phone] Tico Burton MD Unavailable [phone] Reason for Visit * Reason Comments Abdominal Pain Encounter Details Date Type Department Care Team (Late st Contact Info) Description 09/04/2022 6:54 AM OIL AND GAS SPECIALIST - 09/04/2022 10:12 AM [facility] Emergency [facility] Emergency Department [address] [place] [address] Kat Biggs MD [address] [place] [address] [place] [address] Colitis (Primary Dx) Discharge Disposition: Discharge to home [...] on file Legal Sex Female 10:06 AM OIL AND GAS SPECIALIST Gender Identity Female 06/17/2024 7:02 AM CDT Sexual Orientation Not on file documented as of this encounter Last Filed Vital Signs Vital Sign Reading Time Taken Comments Blood Pressure 111/65 09/04/2022 9:30 AM OIL AND GAS SPECIALIST Pulse 82 09/04/2022 9:30 AM OIL AND GAS SPECIALIST Temperature 36.3 ??C (97.3 ??F) 09/04/2022 9:45 AM CS T Respiratory Rate 16 09/04/2022 9:30 AM OIL AND GAS SPECIALIST Oxygen Saturation 100% 09/04/2022 9:30 AM OIL AND GAS SPECIALIST Inhaled Oxygen Concentration - - Weight 62.6 kg (138 lb) 09/04/2022 6:44 AM OIL AND GAS SPECIALIST Height 162.6 cm (5' 4 ) 09/04/2022 6:44 AM OIL AND GAS SPECIALIST Body Mass Index 23.69 09/04/2022 6:44 AM OIL AND GAS SPECIALIST documented in this encounter Discharge Instructions * Discharge Instructions* Kat Bgigs MD - 09/04/2022 9:30 AM OIL AND GAS SPECIALIST Meds as prescribed. Return to the ER with worsening symptoms or with concerns Liquid diet. Advance your diet to regular slowly as tolerated. Follow-up with her doctor in 2-3 days. AND GAS SPECIALIST * Attachments The following attachments cannot be sent through Care Everywhere. * Colitis (AfterCare(R) Instructions(ER/ED)) (Telugu) documented in this encounter Medications at Time [...] tablet (25 mg total) by mouth daily metroNIDAZOLE (FLAGYL) 500 mg tablet Take 1 tablet (500 mg total) by mouth 3 (three) times a day for 7 days 21 tablet 09/04/2022 3 ciprofloxacin (CIPRO) 500 mg tabletIndication s:Abdominal/Pelv ic Infection Take 1 tablet (500 mg total) by mouth 2 (two) times a day 14 tablet 09/04/2022 3 dicyclomine (BENTYL) 10 mg capsule Take 2 capsules (20 mg total) by mouth 4 (four) times a day as needed (abdominal pain/cramping) 240 capsule 5 09/24/[address] (CYMBALTA) 60 mg capsule Take 60 mg by mouth daily 08/20/2022 3 escitalopram (LEXAPRO) 10 mg tabletIndication s:Anxiety with Depression Take 10 mg by mouth daily 3 famotidine (PEPCID) 20 mg tablet Take 1 tablet (20 mg total) by mouth daily as needed for indigestion or heartburn 90 tablet 3 01/15/2022 3 fluconazole (DIFLUCAN) 150 mg tablet Take 1 pill at onset of yeast infection symptoms. May repeat dose in 72 hours if no resolution of symptoms. 2 tablet 01/30/2022 3 hydrOXYzine (ATARAX) 50 mg tablet Take 50 mg by mouth 3 (three) times a day 08/20/2022 3 lubiprostone (AMITIZA) 24 mcg capsule TAKE 1 CAPSULE(24 MCG) BY MOUTH TWICE DAILY WITH MEALS 60 capsule 5 06/05/2022 3 melatonin 5 mg tablet Take 1 tablet (5 mg total) by mouth nightly as needed (sleep) 10 tablet 08/18/2022 3 nortriptyline (PAMELOR) 25 mg capsule Take [...] exceed 2 doses in 24 hours. 4 traMADoL (ULTRAM) 50 mg tablet Take 1 tablet (50 mg total) by mouth every 6 (six) hours as needed for pain for up to 15 doses 15 tablet 09/04/2022 3 documented as of this encounter Ordered Prescriptions Prescription Sig Dispense Quantity Refills Last Filled Start Date End Date traMADoL (ULTRAM) 50 mg tablet Take 1 tablet (50 mg total) by mouth every 6 (six) hours as needed for pain for up to 15 doses 15 tablet 09/04/2022 3 ondansetron (ZOFRAN) 4 mg tablet Take 1 tablet (4 mg total) by mouth every 4 (four) hours as needed for nausea or vomiting 15 tablet 09/04/2022 3 metroNIDAZOLE (FLAGYL) 500 mg tablet Take 1 tablet (500 mg total) by mouth 3 (three) times a day for 7 days 21 tablet 09/04/2022 3 ciprofloxacin (CIPRO) 500 mg tabletIndications: Abdominal/Pelvic Infection Take 1 tablet (500 mg total) by mouth 2 (two) times a day 14 tablet 09/04/2022 3 documented in this encounter Discharge Disposition Disposition Code Departure Means Destination Discharge to home or self care documented in this encounter ED Notes * Kat Biggs MD - 09/04/2022 7:11 AM CST HPI Chief Complaint Patient presents with Abdominal Pain HPI Patient History: This is a 52-year-old female with a history of IBS, GERD, migraines, hypertension,atrial fibrillation on Eliquis, bipolar, cyclical vomiting syndrome with chronic nausea who presents with abdominal pain since this morning and nausea. The patient describes left-sided abdominal discomfort, worse in the lower abdomen. She denies fever or chills. No sick contacts. Nothing really makes it better or worse. No diarrhea or constipation. Patient states her symptoms are mild. states he thinks they are little worse than usual. Patient Active Problem List Diagnosis Date Noted Cyclical vomiting 09/05/2022 Gastritis 09/05/2022 Gastroesophageal reflux [...] vomiting syndrome 08/09/2021 Bipolar affect, depressed (CMS/HCC) ([facility]) 08/09/2021 Intussusception intestine (CMS/HCC) (HCC) 08/09/2021 Hypertension 08/08/2021 Abdominal pain, generalized 08/08/2021 Atrial fibrillation (CMS/HCC) (HCC) 05/15/2020 Essential tremor 10/12/2018 Jerky body movements 10/12/2018 Irritable bowel syndrome with both constipation and diarrhea 02/23/2018 Orthostatic dizziness 09/16/2016 Palpitations 07/29/2016 Migraine headache 07/29/2016 Past Medical History: Diagnosis Date A-fib (CMS/HCC) ([facility]) Anxiety Arthritis Bipolar affect, depressed (CMS/HCC) (HCC) Cyclic vomiting syndrome Depression Headache, tension-type Hypertension Hypotension IBS (irritable bowel syndrome) Migraine Stroke (CMS/HCC) (HCC) Weight loss Past Surgical History: Procedure Laterality [...] Eyes: Negative for pain. Respiratory: Negative for cough. Cardiovascular: Negative for chest pain. Gastrointestinal: Positive for abdominal pain and nausea. Endocrine: Negative for polydipsia. Genitourinary: Negative for frequency. Musculoskeletal: Negative for arthralgias. Allergic/Immunologic: Negative for food allergies. Neurological: Negative for headaches. Hematological: Negative for adenopathy. Psychiatric/Behavioral: Negative for behavioral problems. All other systems reviewed and are negative. Physical Exam ED Triage Vitals [09/04/22 0644] Temp Pulse Resp BP SpO2 36.3 ??C (97.4 ??F) 64 18 124/79 100 % Temp src Heart Rate Source Patient Position BP Location FiO2 (%) Temporal -- -- -- -- Height Height Method Weight Weight Method 1.626 m (5' 4 ) Stated 62.6 kg (138 lb) Stated Physical Exam Vitals reviewed. Constitutional: Appearance: She is well-developed and normal weight. She is not toxic-appearing. HENT: Head: Normocephalic and atraumatic. Mouth/Throat: Mouth: Mucous membranes are moist. Pharynx: Oropharynx is clear. Eyes: Extraocular Movements: Extraocular movements intact. Pupils: Pupils are equal, round, and reactive to light. Cardiovascular: Rate and Rhythm: Normal rate and regular rhythm. Heart sounds: Normal heart sounds. Pulmonary: Effort: Pulmonary effort is normal. Breath sounds: Normal breath sounds. Abdominal: General: Abdomen is flat. Bowel sounds are normal. Palpations: Abdomen is soft. Tenderness: There is no right CVA tenderness or left CVA tenderness. Hernia: No hernia is present. Skin: General: Skin is warm. Capillary Refill: Capillary refill takes less than 2 seconds. Neurological: General: No focal deficit present. Mental Status: She is alert and oriented to person, place, and time. Psychiatric: Mood and Affect: Mood normal. Behavior: Behavior normal. MDM Medical Decision Making 52-year-old with IBS, nausea, abdominal pain. Differential includes IBS exacerbation, cystitis, diverticulitis, colitis, viral infection, other Amount and/or Complexity of Data Reviewed Labs: ordered. Decision-making details documented in ED Course. Radiology: ordered. Risk Prescription drug management. ED Course as of 09/08/22814 Time: 09/04 758 Comment: UA contaminated, but negative By: Kat Biggs MD Time: 09/04 758 Value: WBC(!): 12.1 Comment: (Reviewed) By: Kat Biggs MD Time: 09/08 813 Comment: Discussed results with and patient. They voiced understanding and think me for treatment. Will follow-up By: Kat Biggs MD Final diagnoses: Colitis Kat Biggs MD 09/08/22 0815 AND GAS SPECIALIST * Julia Molina RN - 09/04/2022 6:42 AM CST Pt arrives to ED via POV for c/o abdominal pain that started this morning. Pt reports nausea. Pt denies vomiting or diarrhea. Pt has hx of IBS. Pt reports pain as in the lower abdominal area. AND GAS SPECIALIST documented in this encounter Plan of Treatment Upcoming Encounters Date Type Department Care Team (Latest Contact Info) Description 09/07/2024 8:30 AM OIL AND GAS SPECIALIST Hospital Encounter [facility] [address] [place] [phone] Forest Catherine MD [address] [address] 09/07/2024 8:30 AM OIL AND GAS SPECIALIST - 09/07/2024 9:00 AM OIL AND GAS SPECIALIST Surgery [facility] [address] [place] [phone] Forest Catherine MD [address] [address] EGD w/Endo Flip & YI placement Scheduled Procedures Name Priority Associated Diagnoses Date/Ti me ESOPHAGOGASTRODUODENOSCOPY Hiatal hernia Gastroesophageal reflux disease, unspecified whether esophagitis present 09/07/2024 8:30 AM OIL AND GAS SPECIALIST documented as of this encounter Procedures Procedure Name Priority Date/Time Associated Diagnosis Comments CT ABDOMEN PELVIS W CONTRAST ED 09/04/2022 9:10 AM OIL AND GAS SPECIALIST XR ABDOMEN 2 VIEWS W CHEST 1 VIEW ED 09/04/2022 8:15 AM OIL AND GAS SPECIALIST EGFR STAT 09/04/2022 7:27 AM OIL AND GAS SPECIALIST DIFFERENTIAL AUTO STAT 09/04/2022 7:2 7 AM OIL AND GAS SPECIALIST URINALYSIS AND REFLEX TO MICROSCOPIC AND CULTURE STAT 09/04/2022 7:27 AM OIL AND GAS SPECIALIST CBC WITH AUTO DIFFERENTIAL STAT 09/04/2022 7:27 AM OIL AND GAS SPECIALIST URINALYSIS, MICROSCOPIC ONLY STAT 09/04/2022 7:27 AM OIL AND GAS SPECIALIST LIPASE STAT 09/04/2022 7:27 AM OIL AND GAS SPECIALIST COMPREHENSIVE METABOLIC PANEL STAT 09/04/2022 7:27 AM OIL AND GAS SPECIALIST documented in this encounter Results * CT Abdomen Pelvis W Contrast (09/04/2022 9:10 AM OIL AND GAS SPECIALIST) Anatomical Region Laterality Modality Body N/A Computed Tomogra phy 09/04/2022 9:12 AM OIL AND GAS SPECIALIST Narrative 09/04/2022 9:19 AM OIL AND GAS SPECIALIST EXAM DESCRIPTION: ?? CT ABDOMEN PELVIS W CONTRAST REASON FOR STUDY: ?? Abdominal pain, acute, nonlocalized ?? Pelvic pain today, nausea and diarrhea ?? TECHNIQUE: CT scan of the abdomen [...] ?? injected via ?? intravenous COMPARISON: ?? 06/10/2022 FINDINGS: LOWER CHEST: ?? The heart size is stable. ??There is no definite evidence of pericardial effusion. ??There is mild bibasilar subsegmental atelectasis, which is most significant in the lingula. LIVER: ?? There is mild diffuse hepatic steatosis. ??The hepatic and portal veins are grossly patent. ??There is a stable nonspecific parenchymal calcification in the lateral right hepatic dome measuring 0.5 cm, which does not require follow-up imaging. GALLBLADDER: ?? Surgically absent. BILE DUCTS: ?? No intrahepatic or extrahepatic ductal dilatation. SPLEEN: ?? The spleen is grossly stable in size and unremarkable. PANCREAS: ?? The pancreas appears grossly stable without definite of pancreatic ductal dilatation, peripancreatic inflammatory changes, or peripancreatic fluid collection. ?? ADRENALS: ?? The bilateral adrenal glands are grossly stable and unremarkable. KIDNEYS/URINARY TRACT: ?? The bilateral kidneys enhance symmetrically. ??There is a 1.3 cm cyst in the upper pole of the right kidney. ??There are few additional too small to characterize hypoattenuating lesions in the bilateral kidneys, and these lesions do not require follow-up imaging. ??There is no definite evidence of hydronephrosis or hydroureter. ?There is mild circumferential mucosal thickening of the urinary bladder. GI: ?? There is no definite evidence of bowel obstruction. ??The appendix is visualized without definite evidence of pericecal or periappendiceal inflammatory changes to suggest appendicitis. ??There is mild diffuse mucosal thickening of the colon. ??There are scattered colonic diverticula without definite evidence of diverticulitis. ??There is a tiny fat containing periumbilical hernia. ??There is no definite evidence of free air or fluid in the abdomen and pelvis. ??There is no definite evidence of lymphadenopathy in the abdomen and pelvis. REPRODUCTIVE: ?? There is no definite CT evidence of a large ovarian or uterine mass. MUSCULOSKELETAL: ?? There is a mild dextroscoliotic curvature of the spine with mild degenerative changes. OTHER: ?? No other abnormality. IMPRESSION: ?? 1. ?? No definite evidence of bowel obstruction. 2. ?? Mild diffuse mucosal thickening of the colon, which is concerning for mild colitis of infectious or inflammatory etiology. 3. ?? Mild circumferential mucosal thickening of the urinary bladder, which may be related to underdistention versus cystitis. ??Clinical correlation with urinary analysis is recommended as clinically indicated. 4. ?? Scattered colonic diverticula without definite evidence of diverticulitis. 5. ?? Mild diffuse hepatic steatosis. 6. ?? Normal appendix. REFERENCE: Unless otherwise specified, no follow-up imaging [...] Findings Committee. J Am Kacey Radiol. 2017 Mar;14(8):2903-0458. THIS IS AN ELECTRONICALLY VERIFIED FINAL REPORT 09/04/2022 9:19 AM - Electronically signed by ??Luis Ricketts D.O. PS: PS D: ??09/04/2022 9:19 AM T: ??09/04/2022 9:19 AM Report ID: [id number] Reading Location: ??[id number] Procedure Note Luis Ricketts, DO - 09/04/2022 EXAM DESCRIPTION: CT ABDOMEN PELVIS W CONTRAST REASON FOR STUDY: Abdominal pain, acute, nonlocalized Pelvic pain today, nausea and diarrhea TECHNIQUE: CT scan of the abdomen and pelvis performed with intravenousand without oral contrast using helical scanning technique with dynamic intravenous contrast injection. Reconstructed coronal and sagittal MPRimages reviewed. All images stored on PACS. Automated exposure control was used as a dose optimization technique forthis examination. CONTRAST TYPE/DOSE: 75mL of IOVERSOL 350 MG IODINE/ML INTRAVENOUSSYRINGE injected via intravenous COMPARISON: 06/10/2022 FINDINGS: LOWER CHEST: The heart size is stable. There is no definite evidence of pericardial effusion. There is mild bibasilar subsegmental atelectasis,which is most significant in the lingula. LIVER: There is mild diffuse hepatic steatosis. The hepatic and portal veins are grossly patent. There is a stable nonspecific parenchymal calcification in the lateral right hepatic dome measuring 0.5 cm, whichdoes not require follow-up imaging. GALLBLADDER: Surgically absent. BILE DUCTS: No intrahepatic or extrahepatic ductal dilatation. SPLEEN: The spleen is grossly stable in size and unremarkable. PANCREAS: The pancreas appears grossly stable without definite ofpancreatic ductal dilatation, peripancreatic inflammatory changes, or peripancreatic fluid collection. ADRENALS: The bilateral adrenal glands are grossly stable andunremarkable. KIDNEYS/URINARY TRACT: The bilateral kidneys enhance symmetrically.There is a 1.3 cm cyst in the upper pole of the right kidney. There are few additional too small to characterize hypoattenuating lesions in thebilateral kidneys, and these lesions do not require follow-up imaging. There is no definite evidence of hydronephrosis or hydroureter. There is mild circumferential mucosal thickening of the urinary bladder. GI: There is no definite evidence of bowel obstruction. The appendix is visualized without definite evidence of pericecal or periappendiceal inflammatory changes to suggest appendicitis. There is mild diffusemucosal thickening of the colon. There are scattered colonic diverticula without definite evidence of diverticulitis. There is a tiny fat containing periumbilical hernia. There is no definite evidence of free air or fluidin the abdomen and pelvis. There is no definite evidence of lymphadenopathyin the abdomen and pelvis. REPRODUCTIVE: There is no definite CT evidence of a large ovarian oruterine mass. MUSCULOSKELETAL: There is a mild dextroscoliotic curvature of the spinewith mild degenerative changes. OTHER: No other abnormality. IMPRESSION: 1. No definite evidence of bowel obstruction. 2. Mild diffuse mucosal thickening of the colon, which is concerning for mild colitis of infectious or inflammatory etiology. 3. Mild circumferential mucosal thickening of the urinary bladder, whichmay be related to underdistention versus cystitis. Clinical correlation with urinary analysis is recommended as clinically indicated. 4. Scattered colonic diverticula without definite evidence of diverticulitis. 5. Mild diffuse hepatic steatosis. 6. Normal appendix. REFERENCE: Unless otherwise specified, no follow-up imaging [...] Findings Committee. J Am Kacey Radiol. 2017 Mar;14(8):4769-2062. THIS IS AN ELECTRONICALLY VERIFIED FINAL REPORT 09/04/2022 9:19 AM - Electronically signed by Luis Ricketts D.O. PS: PS Report ID: [id number] Reading Location: [place] [address] Kat Biggs MD IM CT PROCEDURES Final R esult * XR Abdomen 2 Views W Chest 1 View (09/04/2022 8:15 AM OIL AND GAS SPECIALIST) Anatomical Region Laterality Modality Body, Abdomen N/A Computed Radiogr aphy 09/04/2022 8:30 AM OIL AND GAS SPECIALIST Narrative 09/04/2022 8:34 AM OIL AND GAS SPECIALIST EXAM DESCRIPTION: ?? XR ABDOMEN 2 VIEWS W CHEST 1 VIEW REASON FOR STUDY: ?? lower abd pain ?? history of IBS, GERD, migraines, hypertension, atrial fibrillation on Eliquis, bipolar, cyclical vomiting syndrome with chronic nausea who presents with abdominal pain since this morning and nausea. ?? TECHNIQUE: 1 view of the chest and ??2 ??views of the abdomen acquired. COMPARISON: ?? Chest radiograph dated 08/18/2022 and abdominal radiograph dated 09/09/2021. FINDINGS: LUNGS/PLEURA: ?? No focal consolidation or pneumothorax. No pleural effusion. HEART/MEDIASTINUM: ?? Heart size is normal. Normal mediastinal and hilar contours. FREE-AIR: ?? None. No abnormal gas collections. ?? BOWEL GAS PATTERN: ?? Nonobstructive pattern. No dilated loops or air fluid levels. ?? SOFT TISSUES: ?? No significant abnormal calcifications. ?? HARDWARE/LINES/TUBES: ?? None. BONES: ?? Moderate degenerative changes in the lower lumbar spine. OTHER: ?? No other significant finding. ?? IMPRESSION: ??No acute abnormalities. THIS IS AN ELECTRONICALLY VERIFIED FINAL REPORT 09/04/2022 8:34 AM - Electronically signed by ??Humza Gonzales M.D. KN: ALON D: ??09/04/2022 8:34 AM T: ??09/04/2022 8:34 AM Report ID: [id number] Reading Location: ??[id number] Procedure Note Humza Gonzales MD - 09/04/2022 EXAM DESCRIPTION: XR ABDOMEN 2 VIEWS W CHEST 1 VIEW REASON FOR STUDY: lower abd pain history of IBS, GERD, migraines, hypertension, atrial fibrillation onEliquis, bipolar, cyclical vomiting syndrome with chronic nausea who presents with abdominal pain since this morning and nausea. TECHNIQUE: 1 view of the chest and 2 views of the abdomen acquired. COMPARISON: Chest radiograph dated 08/18/2022 and abdominal radiographdated 09/09/2021. FINDINGS: LUNGS/PLEURA: No focal consolidation or pneumothorax. No pleuraleffusion. HEART/MEDIASTINUM: Heart size is normal. Normal mediastinal and hilar contours. FREE-AIR: None. No abnormal gas collections. BOWEL GAS PATTERN: Nonobstructive pattern. No dilated loops or air fluid levels. SOFT TISSUES: No significant abnormal calcifications. HARDWARE/LINES/TUBES: None. BONES: Moderate degenerative changes in the lower lumbar spine. OTHER: No other significant finding. IMPRESSION: No acute abnormalities. THIS IS AN ELECTRONICALLY VERIFIED FINAL REPORT 09/04/2022 8:34 AM - Electronically signed by Humza Gonzales M.D. KN: ALON Report ID: [id number] Reading Location: [place] [address] Kat Biggs MD IMG XR PROCEDURES Final R esult * eGFR (09/04/2022 7:27 AM OIL AND GAS SPECIALIST) eGFR 85 mL/min/1. 73 m2 [facility] ([place]) Comment: [...] interpretive data was last reviewed 2021. Blood 09/04/2022 7:27 AM OIL AND GAS SPECIALIST 09/04/2022 7:34 AM OIL AND GAS SPECIALIST Kat Biggs MD LAB BLOOD ORDERABLES Cristy l Result Performing Organization Address City/[facility] Co de Phone Number [facility] ([place]) [address] [facility] [place] [address] * (ABNORMAL) Urinalysis, microscopic only (09/04/2022 7:27 AM OIL AND GAS SPECIALIST) WBC, ur 0-5 0 - 5 /HPF [facility] ([place]) RBC, ur 0-2 0 - 2 /HPF [facility] ([place]) Epithelial cells, squamous, ur 11-20(A) 0 - 5 /HPF [facility] ([place]) Bacteria, ur Trace(A) [facility] ([place]) Mucous, ur Present(A) [facility] ([place]) Culture Reflex Comment Reflex conditions for urine culture (WBC >10) not met. [facility] ([place]) Urine 09/04/2022 7:27 AM OIL AND GAS SPECIALIST 09/04/2022 7:34 AM OIL AND GAS SPECIALIST Kat Biggs MD LAB URINE ORDERABLES Cristy l Result Performing Organization Address City/[facility] Co de Phone Number [facility] ([place]) [address] [facility] [place] [address] * (ABNORMAL) Differential, auto (09/04/2022 7:27 AM OIL AND GAS SPECIALIST) Neutrophil abs 8.9(H) 1.7 - 6.5 K/cumm [facility] ([place]) Imm gran abs 0.1 0.0 - 0.1 K/cumm [facility] ([place]) Lymphocyte abs 1.8 0.8 - 3.3 K/cumm [facility] ([place]) Monocyte abs 1.0(H) 0.2 - 0.8 K/cumm [facility] ([place]) Eosinophil abs 0.2 0.0 - 0.5 K/cumm [facility] ([place]) Basophil abs 0.1 0.0 - 0.1 K/cumm [facility] ([place]) Neutrophil pct 73.6 % [facility] ([place]) Comment: Interpretive [...] was last revised on 2017. Lymphocyte pct 15.2 % [facility] ([place]) Comment: Interpretive [...] was last revised on 2017. Eosinophil pct 1.7 % [facility] ([place]) Comment: Interpretive [...] Data was last revised on 2017. Blood 09/04/2022 7:27 AM OIL AND GAS SPECIALIST 09/04/2022 7:34 AM OIL AND GAS SPECIALIST us Kat Biggs MD LAB BLOOD ORDERABLES Cristy beebe Result [facility] ([place]) 1 [facility] Department [place] [address] * (ABNORMAL) Urinalysis reflex to microscopic and culture Urine (09/04/2022 7:27 AM OIL AND GAS SPECIALIST) Color, ur Yellow Yellow [facility] ([place]) Clarity, ur Turbid(A) Clear [facility] ([place]) Specific gravity, ur 1.017 1.003 - 1.030 [facility] ([place]) pH, urine 5.5 [facility] ([place]) Protein, ur ql Trace Negative [facility] ([place]) Glucose, ur ql Negative Negative [facility] ([place]) Ketones, ur Negative Negative [facility] ([place]) Bilirubin, ur Negative Negative [facility] ([place]) Blood, ur Trace(A) Negative [facility] ([place]) Urobilinogen, ur <2.0 <2.0 mg/dL [facility] ([place]) Nitrite, ur Negative Negative [facility] ([place]) Leukocyte esterase, ur 1+(A) Negative [facility] ([place]) UA reflex comment Reflex to microscopic UA will be performed. [facility] ([place]) Urine 09/04/2022 7:27 AM OIL AND GAS SPECIALIST 09/04/2022 7:34 AM OIL AND GAS SPECIALIST Narrative [facility] ([place]) - 09/04/2022 7:39 AM OIL AND GAS SPECIALIST ?? Urine pH is affected by diet, medications, systemic acid-base disturbances, and renal tubular function. ??pH may affect urinary stone formation. ??For example, urine pH below 6.0 may help reduce the tendency for calcium phosphate stones and pH greater than 6.0 may reduce the tendency for uric acid stone formation. Source: [employer]. Last revised 09-10-2017 us Kat Biggs MD LAB MICROBIOLOGY - GENERA L ORDERABLES Final Result [facility] ([place]) 1 [facility] Department [place] [address] * Lipase (09/04/2022 7:27 AM OIL AND GAS SPECIALIST) Lipase 48 10 - 99 Units/L [facility] Blood 09/04/2022 7:27 AM OIL AND GAS SPECIALIST 09/04/2022 7:34 AM OIL AND GAS SPECIALIST Kat Biggs MD LAB BLOOD ORDERABLES Cristy l Result Performing Organization Address City/[facility]/ZIP Co de Phone Number [facility] 1 [facility] [employer] [place] [address] * (ABNORMAL) CBC with auto differential (09/04/2022 7:27 AM OIL AND GAS SPECIALIST) WBC 12.1(H) 3.8 - 9.9 K/cumm [facility] Hgb 12.0 11.9 - 15.5 g/dL [facility] Hct 37.5 35.6 - 45.5 % [facility] Plt 455(H) 150 - 400 K/cumm [facility] MPV 9.8 9.1 - 12.3 fL [facility] RBC 4.45 3.90 - 5.20 M/cumm [facility] MCV 84.3 81.3 - 96.4 fL [facility] MCH 27.0(L) 27.1 - 33.3 pg [facility] MCHC 32.0(L) 32.3 - 35.7 g/dL [facility] RDW CV 14.1 11.1 - 14.9 % [facility] RDW SD 43.1 35.7 - 48.1 fL [facility] NRBC abs 0.00 0.00 - 0.01 K/cumm [facility] Blood 09/04/2022 7:27 AM OIL AND GAS SPECIALIST 09/04/2022 7:34 AM OIL AND GAS SPECIALIST Kat Biggs MD LAB BLOOD ORDERABLES Cristy l Result Performing Organization Address City/[facility]/ZIP Co de Phone Number [facility] 1 [facility] [place] [address] * Comprehensive metabolic panel (09/04/2022 7:27 AM OIL AND GAS SPECIALIST) Sodium 138 135 - 145 mmol/L [facility] Potassium, pl 3.7 3.3 - 4.9 mmol/L [facility] Chloride 99 97 - 110 mmol/L [facility] CO2 29 22 - 32 mmol/L [facility] Anion gap 10 2 - 15 mmol/L [facility] BUN 14 8 - 25 mg/dL [facility] Creatinine 0.82 0.60 - 1.10 mg/dL [facility] Glucose 113 70 - 199 mg/dL [facility] [...] interpretive data was last revised 2017. Calcium 9.9 8.5 - 10.3 mg/dL [facility] Bilirubin, total 0.5 0.1 - 1.2 mg/dL [facility] Protein, pl 8.0 6.5 - 8.5 g/dL [facility] Albumin 4.6 3.5 - 5.0 g/dL [facility] Alk phos 108 40 - 130 Units/L [facility] ALT 19 7 - 45 Units/L [facility] AST 27 10 - 45 Units/L [facility] Blood 09/04/2022 7:27 AM OIL AND GAS SPECIALIST 09/04/2022 7:34 AM OIL AND GAS SPECIALIST Kat Biggs MD LAB BLOOD ORDERABLES Cristy beebe Result [facility] [place]) 1 [facility] Department [place] [address] documented in this encounter Visit Diagnoses Diagnosis Colitis- Primary Other and unspecified noninfectious gastroenteritis and colitis Hiatal hernia Diaphragmatic hernia without mention of obstruction or gangrene Gastroesophageal reflux disease, unspecified whether esophagitis present documented in this encounter Administered Medications Inactive Administered Medications - up to 3 most recent administrations Medication Order MAR Action Action Date Dose Rate Site ciprofloxacin (CIPRO) tablet 500 mg 500 mg, oral, Once, On Anayeli 09/04/22 at 0928, For 1 dose, Indications: Abdominal/Pelvic InfectionIndications:Abdo brigido/Pelvic Infection Given 09/04/2022 9:41 AM OIL AND GAS SPECIALIST 500 mg ioversoL (OPTIRAY 350) syringe 75 mL 75 mL, intravenous, Once in imaging, contrast, Starting on Anayeli 09/04/22 at 0901, For 1 dose Contrast Given 09/04/2022 9:02 AM OIL AND GAS SPECIALIST 75 mL ketorolac (TORADOL) 30 mg/mL (1 mL) injection 30 mg 30 mg, intravenous, Once, On Anayeli 09/04/22 at 0744, For 1 dose, For Adult IV push, administer over 15 seconds Given 09/04/2022 8:02 AM OIL AND GAS SPECIALIST 30 mg metroNIDAZOLE (FLAGYL) tablet 500 mg 500 mg, oral, Once, On Anayeli 09/04/22 at 0928, For 1 dose, Indications: Abdominal/Pelvic InfectionIndications:Abdo brigido/Pelvic Infection Given 09/04/2022 9:41 AM OIL AND GAS SPECIALIST 500 mg ondansetron (ZOFRAN) injection 4 mg 4 mg, intravenous, Administer over 2 Minutes, Once, On Anayeli 09/04/22 at 0928, For 1 dose, Indications: Nausea and VomitingIndications:Nause a and Vomiting Given 09/04/2022 9:41 AM OIL AND GAS SPECIALIST 4 mg sodium chloride 0.9% bolus 1,000 mL 1,000 mL, intravenous, at 1,000 mL/hr, Administer over 1 Hours, Once, On Anayeli 09/04/22 at 0744, For 1 dose New Bag 09/04/2022 8:02 AM OIL AND GAS SPECIALIST 1,000 mL 1000 mL/hr documented in this encounter Active and Recently Administered Medications Times are shown in OIL AND GAS SPECIALIST. Scheduled Medication Order 09/02/2022 09/03/2022 09/04/2022 ciprofloxacin (CIPRO) tablet 500 mg (COMPLETED) 500 mg, oral, Once, On Anayeli 09/04/22 at 0928, For 1 dose, Indications: Abdominal/Pelvic Infection 0941 (Given - Provid er: Maritza Sullivan RN) ketorolac (TORADOL) 30 mg/mL (1 mL) injection 30 mg (COMPLETED) 30 mg, intravenous, Once, On Anayeli 09/04/22 at 0744, For 1 dose, For Adult IV push, administer over 15 seconds 0802 (Given - Provid er: Maritza Sullivan RN) metroNIDAZOLE (FLAGYL) tablet 500 mg (COMPLETED) 500 mg, oral, Once, On Anayeli 09/04/22 at 0928, For 1 dose, Indications: Abdominal/Pelvic Infection 0941 (Given - Provid er: Maritza Sullivan RN) ondansetron (ZOFRAN) injection 4 mg (COMPLETED) 4 mg, intravenous, Administer over 2 Minutes, Once, On Anayeli 09/04/22 at 0928, For 1 dose, Indications: Nausea and Vomiting 0941 (Given - Provid er: Maritza Sullivan RN) sodium chloride 0.9% bolus 1,000 mL (COMPLETED) 1,000 mL, intravenous, at 1,000 mL/hr, Administer over 1 Hours, Once, On Anayeli 09/04/22 at 0744, For 1 dose 0802 (New Bag - Prov ider: Maritza Sullivan RN)0932 (Stopped - Provider: Maritza Sullivan RN) PRN Medication Order 09/02/2022 09/03/2022 09/04/2022 ioversoL (OPTIRAY 350) syringe 75 mL (COMPLETED) 75 mL, intravenous, Once in imaging, contrast, Starting on Anayeli 09/04/22 at 0901, For 1 dose 0902 (Contrast Given - Provider: Kassidy Richards, RT) documented in this encounter Care Teams Incident Response Manager Relationship Specialty Start Date End Date Parmjit Dai MD PCP - General 12/31/20 Mere Landa NP Nurse Practitioner 02/07/20 Tico Burton MD Surgeon General Surgery 08/09/21 documented as of this encounter
--- OUTSIDE RECORDS SUMMARY | 2024-08-16 04:35 | XMS_ITS | Encounter Summary ---
Author Organization [facility] Healthcare Address [address] [place] [address] Care Team Providers Care Director Of Events Name Role Phone Mere Landa NP Unavailable [phone] Parmjit Dai MD Primary Care Provider [phone] Tico Burton MD Unavailable [phone] Encounter Details Date Type Department Care Team (Latest Contact Info) Description 12/17/2021 3:32 PM CDT - 12/17/2021 10:17 PM CDT Hospital En[facility] Discharge Disposition: Discharge to home or self [...] on file Legal Sex Female 10:06 AM RESIDENTIAL TECH Gender Identity Female 06/17/2024 7:02 AM CDT [...] by mouth nightly 30 capsule 11 12/20/2021 2 nortriptyline (PAMELOR) 25 mg capsule Take [...] (Latest Contact Info) Description 09/07/2024 8:30 AM RESIDENTIAL TECH Hospital Encounter [facility] [address] [place] [phone] Forest Catherine MD [address] [address] 09/07/2024 8:30 AM RESIDENTIAL TECH - 09/07/2024 9:00 AM RESIDENTIAL TECH Surgery [facility] [address] [place] [phone] Forest Catherine MD [address] [address] EGD w/Endo Flip & YI placement Scheduled Procedures Name Priority Associated Diagnoses Date/Ti il ESOPHAGOGASTRODUODENOSCOPY Hiatal hernia Gastroesophageal reflux disease, unspecified whether esophagitis present 09/07/2024 8:30 AM RESIDENTIAL TECH documented as of this encounter Visit Diagnoses Not on filedocumented in this encounter Care Teams Director Of Events Relationship Specialty Start Date End Date Parmjit Dai MD PCP - General 12/31/20 Mere Landa NP Nurse Practitioner 02/07/20 Tico Burton MD Surgeon General Surgery 08/09/21 documented as of this encounter
--- OUTSIDE RECORDS SUMMARY | 2024-08-16 04:35 | XMS_ITS | Encounter Summary ---
Author Organization [facility] Healthcare Address [address] [place] [address] Care Team Providers Care Catering Staff Member Name Role Phone Mere Landa NP Unavailable [phone] Parmjit Dai MD Primary Care Provider [phone] Tico Burton MD Unavailable [phone] Reason for Visit * Reason Comments Palpitations Pt reports feeling d sidney that started yesterday at 2030 with generalized body shaking , chest palpitations, and nausea without emesis that is unrelieved with anti-emetics. Pt reports last BM was yesterday without any black or red in stool. Pt denies diarrhea. Pt is anxious; Pt self reports feeling anxious. Pt reports hx of afib. Pt denies hx of diabetes. Pt reports she was recently admitted and discharged with TIA and UTI and prescribed anbx and ASA. Pt in no distress with even and unlabored respiratio Nausea Shaking Encounter Details Date Type Department Care Team (Late st Contact Info) Description 08/14/2021 1:31 AM ASSESSMENT ANALYST - 08/14/2021 5:43 AM ASSESSMENT ANALYST Emergency [facility] [address] [place] [address] Matilde Knowles MD [address] [place], [place] [address] [address] Tremulousness (Primary Dx); Palpitations; Nausea Discharge Disposition: Discharge to home or self [...] have a drink containing alc ohol? Never 08/09/2021 Average Number of Drinks Not on file 021 Frequency of Binge Drinking Not on file 07/31 PHQ-2 Answer Date Recorded PHQ-2 Total Score (If total score is 3 or more points, staff should administer the PHQ-9) 0 08/09/2021 Comments No Sex and Gender Information Value Date Recorded Sex Assigned at Not on file Legal Sex Female 10:06 AM ASSESSMENT ANALYST Gender Identity Female 06/17/2024 7:02 AM CDT Sexual Orientation Not on file documented as of this encounter Last Filed Vital Signs Vital Sign Reading Time Taken Comments Blood Pressure 112/58 08/14/2021 5:30 AM ASSESSMENT ANALYST Pulse 87 08/14/2021 5:30 AM ASSESSMENT ANALYST Temperature 37.1 ??C (98.7 ??F) 08/14/2021 1:38 AM CS T Respiratory Rate 24 08/14/2021 5:30 AM ASSESSMENT ANALYST Oxygen Saturation 100% 08/14/2021 5:30 AM ASSESSMENT ANALYST Inhaled Oxygen Concentration - - Weight 68 kg (150 lb) 08/14/2021 1:38 AM ASSESSMENT ANALYST Height 162.6 cm (5' 4 ) 08/14/2021 1:38 AM ASSESSMENT ANALYST Body Mass Index 25.75 08/14/2021 1:38 AM ASSESSMENT ANALYST documented in this encounter Discharge Diagnoses Diagnosis Tremor, unspecified - TREMOR, UNSPECIFIED Palpitations - PALPITATIONS Nausea - NAUSEA Nausea alone Essential (primary) hypertension - ESSENTIAL (PRIMARY) HYPERTENSION Unspecified essential hypertension Unspecified atrial fibrillation (HCC) - UNSPECIFIED ATRIAL FIBRILLATION Irritable bowel syndrome without diarrhea - IRRITABLE BOWEL SYNDROME WITHOUT DIARRHEA Unspecified osteoarthritis, unspecified site - UNSPECIFIED OSTEOARTHRITIS, UNSPECIFIED SITE Bipolar disorder, unspecified (HCC) - BIPOLAR DISORDER, UNSPECIFIED Bipolar disorder, unspecified intermission coordinator (current) use of anticoagulants - PROCESSING OPERATOR (CURRENT) USE OF ANTICOAGULANTS Long-term (current) use of anticoagulants half-way (current) use of aspirin - PROCESSING OPERATOR (CURRENT) USE OF ASPIRIN 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 - OTHER [facility] (CURRENT) DRUG THERAPY Personal history of transient ischemic attack (TIA), and cerebral infarction without residual deficits - PERSONAL HISTORY OF TRANSIENT ISCHEMIC ATTACK (TIA), AND CEREBRAL INFARCTION WITHOUT RESIDUAL DEFICI Personal history of urinary (tract) infections - PERSONAL HISTORY OF URINARY (TRACT) INFECTIONS Allergy status to other antibiotic agents - ALLERGY STATUS TO OTHER ANTIBIOTIC AGENTS Allergy status to other drugs, medicaments and biological substances - ALLERGY STATUS TO OTHER DRUGS, MEDICAMENTS AND BIOLOGICAL SUBSTANCES documented in this encounter Discharge Instructions * Attachments The following attachments cannot be sent through Care Everywhere. * Tremors (Toe Puncher) (Fijian) * Heart Palpitations (General Information) (Fijian) * Symptoms With Uncertain Cause (Fijian) documented in this encounter Medications at Time of Discharge apixaban (ELIQUIS) 5 mg tablet Take 1 tablet (5 mg total) by mouth 2 (two) times a day atorvastatin (LIPITOR) 40 mg tabletIndication s:hyperlipidemia Take 1 tablet (40 mg total) by mouth daily 30 tablet 1 08/13/2021 metoprolol XL (TOPROL-XL) 25 mg extended release tablet Take 1 tablet (25 mg total) by mouth daily ondansetron (ZOFRAN) 4 mg tablet Take 1 tablet (4 mg total) by mouth every 8 (eight) hours as needed for nausea or vomiting 30 tablet 08/10/2021 2 sulfamethoxazole -trimethoprim (BACTRIM DS) 800-160 mg per tabletIndication s:Urinary Tract/Genitourin fang Infection Take 1 tablet (160 mg of trimethoprim total) by mouth 2 (two) times a day for 9 doses 9 tablet 08/13/2021 1 aspirin 325 mg tabletIndication s:cerebral ischemia,Cerebra l Ischemia Take 1 tablet (325 mg total) by mouth daily for 1 dose Take until Aug 15- when you restart eliquis 1 tablet 08/14/2021 2 dicyclomine (BENTYL) 10 mg capsule Take 20 mg by mouth 2 (two) times a day 2 escitalopram (LEXAPRO) 10 mg tabletIndication s:Anxiety with Depression Take 10 mg by mouth daily 3 flecainide (TAMBOCOR) 50 mg tablet Take 50 mg by mouth 2 (two) times a day 3 hydrOXYzine (ATARAX) 25 mg tablet Take 25 mg by mouth 3 (three) times a day as needed 08/14/[address] (PROTONIX) 40 mg EC tablet Take 40 mg by mouth every 12 (twelve) hours 2 SUMAtriptan (IMITREX) 50 mg tabletIndication s:Migraine Take 1 tablet (50 mg total) by mouth once as needed for migraine May repeat dose once in 2 hours if no relief. Do not exceed 2 doses in 24 hours. 4 documented as of this encounter Discharge Disposition Disposition Code Departure Means Destination Discharge to home or self care documented in this encounter ED Notes * Riaz Marinelli RN - 08/14/2021 1:55 AM CST Pt reports feeling dizzy that started yesterday at 2030 with generalized body shaking , chest palpitations, and nausea without emesis that is unrelieved with anti-emetics. Pt reports last BM was yesterday without any black or red in stool. Pt denies diarrhea. Pt is anxious; Pt self reports feelinganxious. Pt reports hx of afib. Pt denies hx of diabetes. Pt reports she was recently admitted and discharged with TIA and UTI and prescribed anbx and ASA. Pt in no distress with even and unlabored respirations. VSS. NIH 0. Pt updated. Pt denies any needs. Pt provided with warm blanket. Pt ambulatory with a steady gait and no assistance required. SSMENT ANALYST * Matilde Knowles MD - 08/14/2021 1:50 AM CST Triage Chief Complaint: Chief Complaint Patient presents with ??? Palpitations Pt reports feeling dizzy that started yesterday at 2030 with generalized body shaking , chest palpitations, and nausea without emesis that is unrelieved with anti-emetics. Pt reports last BM was yesterday without any black or red in stool. Pt denies diarrhea. Pt is anxious; Pt self reports feelinganxious. Pt reports hx of afib. Pt denies hx of diabetes. Pt reports she was recently admitted and discharged with TIA and UTI and prescribed anbx and ASA. Pt in no distress with even and unlabored respiratio ??? Nausea ??? Shaking Portions of the record may have been created with voice recognition software. Occasional wrong-word or '[id number]' substitutions may have occurred due to the inherent limitations of voice recognition software. Read the chart carefully and recognize, using context, where substitutions have occurred. H&P: Sarahy Gill is a 51 y.o. female with h/o AFib on Eliquis, cyclical vomiting, IBS, anxiety andbipolar disorder, recent admission for diffuse tremors , and chief complaint of ???tingling?? , speech disturbance/left-sided facial droop, Workup for CVA overall negative, MRI without evidence of acute infarct. Stroke Neurology did recommend tPA. ??Patient likely developed a TIA, per discharge documentation. Patient was discharged yesterday. Patient took her night medications and went to bed. She then felt like both of her lower extremities were shaking. She then felt like her heart was racing. She became nauseous but did not throw up. She still feels like she is shaking. No facial droop one-sided weakness or numbness or speech disturbance. No new medications. She reports that she was having this shaking while she was here in the emergency department. No new symptoms. No new fever or shortness of breath chest pain abdominal pain vomiting or diarrhea. No leg swelling. ROS: At least 10 systems reviewed and otherwise negative except as in the HPI. Past Medical History: Diagnosis Date ??? Anxiety ??? Arthritis ??? Bipolar affect, depressed (CMS/HCC) (HCC) ??? Cyclic vomiting syndrome ??? Depression ??? Headache, tension-type ??? Hypertension ??? Migraine ??? Stroke (CMS/HCC) ([facility]) ??? Weight loss Past Surgical History: Procedure Laterality Date ??? ABDOMINAL SURGERY 2013 hiatel hernia repair ??? ARTHROSCOPIC SURGERY Left 1984,1994,2001 knee ??? SECTION 1992 ??? CHOLECYSTECTOMY ??? ENDOMETRIAL ABLATION ??? HERNIA REPAIR ??? TUBAL LIGATION HOME MEDICATIONS : apixaban (ELIQUIS) 5 mg tablet aspirin 325 mg tablet atorvastatin (LIPITOR) 40 mg tablet dicyclomine (BENTYL) 10 mg capsule escitalopram (LEXAPRO) 10 mg tablet flecainide (TAMBOCOR) 50 mg tablet metoprolol XL (TOPROL-XL) 25 mg extended release tablet ondansetron (ZOFRAN) [address] (PROTONIX) 40 mg EC tablet sulfamethoxazole-trimethoprim (BACTRIM DS) 800-160 mg per tablet SUMAtriptan (IMITREX) 50 mg tablet Allergies Allergen Reactions ??? Compazine [Prochlorperazine] Other (See comments) made me feel weird, odd also agitation ??? Phenergan [Promethazine] Agitation ??? Zithromax [Azithromycin] Stomach upset Nursing Notes Reviewed. Physical Exam: ED Triage Vitals [08/14/21 0138] Temp Pulse Resp BP SpO2 37.1 ??C (98.7 ??F) 68 14 135/82 100 % Temp src Heart Rate Source Patient Position BP Location FiO2 (%) Oral -- -- -- -- GENERAL APPEARANCE: Awake and alert. HEAD: Atraumatic. EYES: Sclera anicteric. EOMI. ENT: Tolerates saliva. NECK: Supple. Trachea midline. HEART: RRR. Radial pulses 2+. LUNGS: Respirations unlabored. CTAB. ABDOMEN: Soft. Non-tender. No guarding or rebound. EXTREMITIES: No acute deformities. SKIN: Warm and dry. NEUROLOGICAL: No gross facial drooping. Moves all 4 extremities spontaneously. Normal speech and mental status. No ataxia noted. Finger-nose within normal limits. Patient was not shaking when I initially wanted to see ear but when I had her blow onto her back to demonstrate that her legs were shaking she seemed to be shaking her legs. When I had her lift 1 leg up and then the other to demonstratestrength testing, there did not seem to be an intention tremor or other abnormality. It seem to extinguish with exertion. No dysmetria. Symmetrical smile and palate rise. Symmetrical eyebrow lift. 5/5 strength throughout. Sensation light touch is intact throughout. No visual field deficit. No difficulty naming. No slurred speech. NIH stroke score: 0. PSYCHIATRIC: Anxious affect. I have reviewed and interpreted all of the currently available lab results from this visit (if applicable): Labs Reviewed CBC WITH AUTO DIFFERENTIAL - Abnormal Result Value WBC 8.9 Hgb 10.1 (*) Hct 31.2 (*) Plt 302 MPV 10.1 RBC 3.57 (*) MCV 87.4 MCH 28.3 MCHC 32.4 RDW CV 15.2 (*) RDW SD 48.6 (*) NRBC abs 0.00 COMPREHENSIVE METABOLIC PANEL - Abnormal Sodium 142 Potassium, pl 3.5 Chloride 107 CO2 21 (*) Anion gap 14 BUN 7 (*) Creatinine 0.56 (*) Glucose 123 Calcium 9.2 Bilirubin, total 0.2 Protein, pl 7.0 Albumin 4.2 Alk phos 71 ALT 9 AST 19 DIFFERENTIAL AUTO - Abnormal Neutrophil abs 6.4 Imm gran abs 0.0 Lymphocyte abs 1.4 Monocyte abs 1.0 (*) Eosinophil abs 0.1 Basophil abs 0.0 Neutrophil pct 71.5 Imm gran pct 0.2 Lymphocyte pct 15.4 Monocyte pct 11.6 Eosinophil pct 0.9 Basophil pct 0.4 TROPONIN T HIGH-SENSITIVITY SERIES (BASELINE, 2HR, 4HR, 6HR) Trop T hs <6 TROPONIN T HIGH-SENSITIVITY 2-HOUR Trop T hs <6 Trop T hs delta 0 Trop T hs interp Insignificant EGFR eGFR 109 Radiographs (if obtained): Report Reviewed: XR Chest Pa Lateral 2 Vw Final Result COMPARISON: None FINDINGS: LUNGS/PLEURA: No focal consolidation or pneumothorax. No pleural effusion. ?? HEART/MEDIASTINUM: Heart size is normal. Normal mediastinal and hilar contours. ?? HARDWARE/LINES/TUBES: None. ?? BONES: No acute findings. ?? OTHER: No other significant finding. IMPRESSION: No acute cardiopulmonary abnormality. ?? EKG (if obtained): (All EKGs are interpreted by myself in the absence of a tile power shear operator) Sinus rhythm with a rate of 65, normal intervals, normal axis, normal ST segments and T-waves as far as I can tell but there is lot of baseline artifact limiting interpretation. A repeat EKG was obtained, once again there is baseline artifact limiting interpretation, there might be some ST sagging in leads V3 through V6. No STEMI. Unclear significance. Patient remains in sinus rhythm. Compared toprevious EKG on 08/11/2021, no change. Including the nonspecific T- wave abnormality noted in the lateral leads. Previously there were some occasional supraventricular premature complexes that are notseen today. Procedures Chart review shows: Transthoracic echocardiogram 08/12/2021 Conclusions: Normal left ventricular systolic function with no focal wall motion abnormalities. Normal left ventricular size. Left ventricular wall thickness upper limits of normal. Normal left ventricular diastolic function. Ejection fraction is visually estimated at 60-70 %. The atrial septum is not well visualized. Saline contrast study performed without evidence of right to left shunt within limitations of poor image quality. MRI brain 08/12/2021 IMPRESSION: Mild chronic ischemic microangiopathy. No acute intracranial abnormality or recent infarction. ED course/MDM: Vitals: 08/14/21 0445 08/14/21 0500 08/14/21 0515 08/14/21 0530 BP: 124/71 124/74 130/74 112/58 Pulse: 57 82 52 87 Resp: Temp: TempSrc: SpO2: 96% 100% 98% 100% Weight: Height: ED Course as of 08/14/21 0616 Time: 08/14 340 Value: Potassium, pl: 3.5 Comment: Patient was concerned about her recent history of low potassium, it was corrected prior todischarge. It remains stable from 15 hours ago. By: Matilde Knowles MD Time: 08/14 340 Value: Hgb(!): 10.1 Comment: Stable from previous By: Matilde Knowles MD MDM: Treated with Zofran and lorazepam. No vomiting while here. Low suspicion for atypical ACS. Symptoms not consistent with stroke-like symptoms. EKG and troponin both x2 are unchanged from baseline. For the shakiness, recommend following up with Neurology. Patient has a follow-up next week with her tile power shear operator and her primary doctor which she has been encouraged to keep. At this time, it is unclear what is causing her symptoms. No electrolyte abnormality. Patient was concerned about hypokalemia but it looks as though it is still corrected from yesterday. Patient has been given return precautions and follow-up instructions which she verbalized understanding agreement. Clinical Impression: 1. Tremulousness 2. Palpitations 3. Nausea Disposition: Discharge (Please note that portions of this note may have been completed with a voice recognition program. Pediatric Nurse errors occur. Please contact me for any clarification.) Matilde Knowles MD 08/14/21 0616 SSMENT ANALYST documented in this encounter Plan of Treatment Upcoming Encounters Date Type Department Care Team (Latest Contact Info) Description 09/07/2024 8:30 AM ASSESSMENT ANALYST Hospital Encounter [facility] [address] [place] [phone] Forest Catherine MD [address] [address] 09/07/2024 8:30 AM ASSESSMENT ANALYST - 09/07/2024 9:00 AM ASSESSMENT ANALYST Surgery [facility] [address] [place] [phone] Forest Catherine MD [address] [address] EGD w/Endo Flip & YI placement Scheduled Procedures Name Priority Associated Diagnoses Date/Ti me ESOPHAGOGASTRODUODENOSCOPY Hiatal hernia Gastroesophageal reflux disease, unspecified whether esophagitis present 09/07/2024 8:30 AM ASSESSMENT ANALYST documented as of this encounter Procedures Procedure Name Priority Date/Time Associated Diagnosis Comments TROPONIN T HIGH-SENSITIVITY 2-HOUR Timed 08/14/2021 3:52 AM ASSESSMENT ANALYST ECG 12-LEAD STAT 08/14/2021 3:17 AM ASSESSMENT ANALYST XR CHEST PA LATERAL 2 VIEWS ED 08/14/2021 2:06 AM ASSESSMENT ANALYST EGFR STAT 08/14/2021 1:51 AM ASSESSMENT ANALYST COMPREHENSIVE METABOLIC PANEL STAT 08/14/2021 1:51 AM ASSESSMENT ANALYST TROPONIN T HIGH-SENSITIVITY SERIES (BASELINE, 2HR, 4HR, 6HR) STAT 08/14/2021 1:50 AM ASSESSMENT ANALYST DIFFERENTIAL AUTO STAT 08/14/2021 1:5 0 AM ASSESSMENT ANALYST CBC WITH AUTO DIFFERENTIAL STAT 08/14/2021 1:50 AM ASSESSMENT ANALYST ECG 12-LEAD STAT 08/14/2021 1:46 AM ASSESSMENT ANALYST documented in this encounter Results * Troponin T high-sensitivity 2-hour (08/14/2021 3:52 AM ASSESSMENT ANALYST) Trop T hs <6 <=14 ng/L [facility] ([place]) Comment: Interpretive Data For further hscTnT resources including the diagnostic algorithm and an aid in interpretation, copy and paste this link: https://nrl.testcatalog.org/show/hsTrop Current Interpretive Data last revised 2020. Trop T hs delta 0 ng/L [facility] ([place]) Trop T hs interp Insignificant [facility] ([place]) Blood 08/14/2021 3:52 AM ASSESSMENT ANALYST 08/14/2021 4:33 AM ASSESSMENT ANALYST us Matilde Knowles MD LAB BLOOD ORDERABLES Fin al Result [facility] ([place]) 1 [facility] Department of Laboratories [place], [place] [id number] * ECG 12 lead (08/14/2021 3:17 AM ASSESSMENT ANALYST) 08/14/2021 3:17 AM ASSESSMENT ANALYST Narrative [facility] - 08/14/2021 9:58 AM ASSESSMENT ANALYST Vent Rate: 67 bpm RR Interval: 891 msec [place] Interval: 131 msec QRS Duration: 78 msec QT Interval: 421 msec QTC Interval: 436 msec P-R-T [place]: 36 - 33 - 3 degrees SINUS RHYTHM POSSIBLE RIGHT VENTRICULAR CONDUCTION DELAY ??[RSR (QR) IN V1/V2] NONSPECIFIC ST \T\ T-WAVE ABNORMALITY BORDERLINE ECG Electronically Signed By: Kofi Sheffield MD, [facility] us Matilde Knowles MD ECG ORDERABLES Edited R esult - Final [facility] [employer] [facility] * XR Chest Pa Lateral 2 Vw (08/14/2021 2:06 AM ASSESSMENT ANALYST) Anatomical Region Laterality Modality Body, Chest N/A Computed Radiogr aphy 08/14/2021 2:12 AM ASSESSMENT ANALYST Narrative 08/14/2021 2:13 AM ASSESSMENT ANALYST EXAM DESCRIPTION: ?? XR CHEST PA LATERAL 2 VIEWS REASON FOR STUDY: ?? Chest Pain ?? Patient was just discharged yesterday for possible TIA, last night patient became shaky and heart felt like it was racing ?? TECHNIQUE: ?? Frontal ??and lateral radiographic views of the chest acquired. COMPARISON: ?? None FINDINGS: LUNGS/PLEURA: ?? No focal consolidation or pneumothorax. No pleural effusion. HEART/MEDIASTINUM: ?? Heart size is normal. Normal mediastinal and hilar contours. HARDWARE/LINES/TUBES: ?? None. BONES: ?? No acute findings. OTHER: ?? No other significant finding. IMPRESSION: ??No acute cardiopulmonary abnormality. THIS IS AN ELECTRONICALLY VERIFIED FINAL REPORT 08/14/2021 2:13 AM - Electronically signed by ??Parmjit Herrera M.D. BB: BÁRBARA D: ??08/14/2021 2:13 AM T: ??08/14/2021 2:13 AM Report ID: [id number] Reading Location: ??[id number] Procedure Note Parmjit Herrera MD PhD - 08/14/2021 EXAM DESCRIPTION: XR CHEST PA LATERAL 2 VIEWS REASON FOR STUDY: Chest Pain Patient was just discharged yesterday for possible TIA, last night patient became shaky and heart felt like it was racing TECHNIQUE: Frontal and lateral radiographic views of the chestacquired. COMPARISON: None FINDINGS: LUNGS/PLEURA: No focal consolidation or pneumothorax. No pleuraleffusion. HEART/MEDIASTINUM: Heart size is normal. Normal mediastinal and hilar contours. HARDWARE/LINES/TUBES: None. BONES: No acute findings. OTHER: No other significant finding. IMPRESSION: No acute cardiopulmonary abnormality. THIS IS AN ELECTRONICALLY VERIFIED FINAL REPORT 08/14/2021 2:13 AM - Electronically signed by Parmjit Herrera M.D. BB: BÁRBARA Report ID: [id number] Reading Location: [id number] us Matilde Knowles MD IMG XR PROCEDURES Final Result * eGFR (08/14/2021 1:51 AM ASSESSMENT ANALYST) eGFR 109 mL/min/1. 73 m2 [facility] ([place]) Comment: [...] interpretive data was last reviewed 2021. Blood 08/14/2021 1:51 AM ASSESSMENT ANALYST 08/14/2021 1:56 AM ASSESSMENT ANALYST us Matilde Knowles MD LAB BLOOD ORDERABLES Fin al Result [facility] ([place]) 1 [facility] Department [place] [address] * (ABNORMAL) Comprehensive metabolic panel (08/14/2021 1:51 AM ASSESSMENT ANALYST) Sodium 142 135 - 145 mmol/L [facility] ([place]) Potassium, pl 3.5 3.3 - 4.9 mmol/L [facility] ([place]) Chloride 107 97 - 110 mmol/L [facility] ([place]) CO2 21(L) 22 - 32 mmol/L [facility] ([place]) Anion gap 14 2 - 15 mmol/L [facility] ([place]) BUN 7(L) 8 - 25 mg/dL [facility] ([place]) Creatinine 0.56(L) 0.60 - 1.10 mg/dL [facility] ([place]) Glucose 123 70 - 199 mg/dL [facility] ([place]) [...] 1.2 mg/dL [facility] ([place]) Protein, pl 7.0 6.5 - 8.5 g/dL [facility] ([place]) Albumin 4.2 3.5 - 5.0 g/dL [facility] ([place]) Alk phos 71 40 - 130 Units/L [facility] ([place]) ALT 9 7 - 45 Units/L [facility] ([place]) AST 19 10 - 45 Units/L [facility] ([place]) Comment:Slightly Hemolyzed S pecimen Blood 08/14/2021 1:51 AM ASSESSMENT ANALYST 08/14/2021 1:56 AM ASSESSMENT ANALYST us Matilde Knowles MD LAB BLOOD ORDERABLES Fin al Result [facility] ([place]) 1 [facility] Department [place] [address] * (ABNORMAL) Differential, auto (08/14/2021 1:50 AM ASSESSMENT ANALYST) Neutrophil abs 6.4 1.7 - 6.5 K/cumm [facility] ([place]) Imm gran abs 0.0 0.0 - 0.1 K/cumm [facility] ([place]) Lymphocyte abs 1.4 0.8 - 3.3 K/cumm [facility] ([place]) Monocyte abs 1.0(H) 0.2 - 0.8 K/cumm [facility] ([place]) Eosinophil abs 0.1 0.0 - 0.5 K/cumm [facility] ([place]) Basophil abs 0.0 0.0 - 0.1 K/cumm [facility] ([place]) Neutrophil pct 71.5 % [facility] ([place]) Comment: Interpretive [...] was last revised on 2017. Lymphocyte pct 15.4 % [facility] ([place]) Comment: Interpretive Data Percent cell count reference ranges are not reported, since discordance with absolute values may lead to misinterpretation of CBC data. Current Interpretive Data was last revised on 2017. Monocyte pct 11.6 % [facility] ([place]) Comment: Interpretive Data Percent cell count reference ranges are not reported, since discordance with absolute values may lead to misinterpretation of CBC data. Current Interpretive Data was last revised on 2017. Eosinophil pct 0.9 % [facility] ([place]) Comment: Interpretive [...] Data was last revised on 2017. Blood 08/14/2021 1:50 AM ASSESSMENT ANALYST 08/14/2021 1:53 AM ASSESSMENT ANALYST Matilde Knowles MD LAB BLOOD ORDERABLES Fin al Result [facility] ([place]) 1 [facility] [place] [address] * Troponin T high-sensitivity series (baseline, 2hr, 4hr, 6hr) (08/14/2021 1:50 AM ASSESSMENT ANALYST) Trop T hs <6 <=14 ng/L [facility] ([place]) Comment: Interpretive Data For further hscTnT resources including the diagnostic algorithm and an aid in interpretation, copy and paste this link: https://nrl.testcatalog.org/show/hsTrop Current Interpretive Data last revised 2020. Blood 08/14/2021 1:50 AM ASSESSMENT ANALYST 08/14/2021 1:53 AM ASSESSMENT ANALYST Matilde Knowles MD LAB BLOOD ORDERABLES Fin al Result Performing Organization Address City/[facility]/ZIP Co de Phone Number [facility] ([place]) 1 [facility] [place] [address] * (ABNORMAL) CBC with auto differential (08/14/2021 1:50 AM ASSESSMENT ANALYST) WBC 8.9 3.8 - 9.9 K/cumm [facility] Hgb 10.1(L) 11.9 - 15.5 g/dL [facility] Hct 31.2(L) 35.6 - 45.5 % [facility] Plt 302 150 - 400 K/cumm [facility] MPV 10.1 9.1 - 12.3 fL [facility] RBC 3.57(L) 3.90 - 5.20 M/cumm [facility] MCV 87.4 81.3 - 96.4 fL [facility] MCH 28.3 27.1 - 33.3 pg [facility] MCHC 32.4 32.3 - 35.7 g/dL [facility] RDW CV 15.2(H) 11.1 - 14.9 % [facility] RDW SD 48.6(H) 35.7 - 48.1 fL [facility] NRBC abs 0.00 0.00 - 0.01 K/cumm [facility] Blood (Blood, Venous) 08/14/2021 1:50 AM ASSESSMENT ANALYST 08/14/2021 1:53 AM ASSESSMENT ANALYST us Matilde Knowles MD LAB BLOOD ORDERABLES Fin al Result [facility] 1 [facility] Department [place] [address] * ECG 12 lead (08/14/2021 1:46 AM ASSESSMENT ANALYST) 08/14/2021 1:46 AM ASSESSMENT ANALYST Narrative [facility] - 08/14/2021 9:56 AM ASSESSMENT ANALYST Vent Rate: 65 bpm RR Interval: 912 msec [place] Interval: 136 msec QRS Duration: 65 msec QT Interval: 416 msec QTC Interval: 428 msec P-R-T [place]: 42 - 27 - 2 degrees SINUS RHYTHM NONSPECIFIC T-WAVE ABNORMALITY BORDERLINE ECG Electronically Signed By: Kofi Sheffield MD, [facility] us Matilde Knowles MD ECG ORDERABLES Final Re sult [facility] documented in this encounter Visit Diagnoses Diagnosis Tremulousness- Primary Palpitations Nausea Nausea alone Hiatal hernia Diaphragmatic hernia without mention of obstruction or gangrene Gastroesophageal reflux disease, unspecified whether esophagitis present documented in this encounter Administered Medications Inactive Administered Medications - up to 3 most recent administrations Medication Order MAR Action Action Date Dose Rate Site LORazepam (ATIVAN) tablet 0.5 mg 0.5 mg, oral, Once, On Thu08/14/21 at 0311, For 1 dose Given 08/14/2021 3:18 AM ASSESSMENT ANALYST 0.5 mg ondansetron ODT (ZOFRAN-ODT) disintegrating tablet 4 mg 4 mg, oral, Once, On Thu08/14/21 at 0150, For 1 dose, Indications: Nausea, VomitingIndications:Nausea,Vomitin g Given 08/14/2021 2:10 AM ASSESSMENT ANALYST 4 mg documented in this encounter Active and Recently Administered Medications Times are shown in ASSESSMENT ANALYST. Scheduled Medication Order 08/12/2021 08/13/2021 08/14/2021 LORazepam (ATIVAN) tablet 0.5 mg (COMPLETED) 0.5 mg, oral, Once, On Thu08/14/21 at 0311, For 1 dose 0318 (Given - Provid er: Riaz Marinelli RN) ondansetron ODT (ZOFRAN-ODT) disintegrating tablet 4 mg (COMPLETED) 4 mg, oral, Once, On Thu08/14/21 at 0150, For 1 dose, Indications: Nausea, Vomiting 0210 (Given - Provid er: Riaz Marinelli RN) documented in this encounter Orders Nursing Count Last Ordered Date First Orde red Date CARDIO RESPIRATORY MONITORING 08/14/2021 NURSING COMMUNICATION 1 08/14/2021 IV Count Last Ordered Date First Orde red Date SALINE LOCK IV 1 08/14/2021 documented in this encounter Care Teams Catering Staff Member Relationship Specialty Start Date End Date Parmjit Dai MD PCP - General 12/31/20 Mere Landa NP Nurse Practitioner 02/07/20 Tico Burton MD Surgeon General Surgery 08/09/21 documented as of this encounter
--- OUTSIDE RECORDS SUMMARY | 2024-08-16 04:35 | XMS_ITS | Encounter Summary ---
Author Organization [facility] Address [address] [place] [address] Care Team Providers Care Top Printing Press Operator Name Role Phone Sumit Bose MD Primary Care Provider Reason for Visit * Reason Comments Abdominal Pain Nausea Diarrhea Poor Appetite Encounter Details Date Type Department Care Team (Latest Contact Info) Description 05/21/2018 2:45 PM CDT Office Visit [facility] Gastroenterology at [address] [place] [address] Mandeep Fountain MD [address] [place] [address] [address] [place] [address] Irritable bowel syndrome with diarrhea (Primary Dx) Social History Tobacco Use Types Packs/Day Years Used Date Smoking Tobacco: Former Cigarettes 1 984 - 1999 Smokeless Tobacco: Never Comments:off and on Alcohol Use Standard Drinks/Week Comments Yes 0 (1 standard drink = 0.6 oz pur e alcohol) on occasion Comments No Sex and Gender Information Value Date Recorded Sex Assigned at Not on file Legal Sex Female 10:06 AM HOME THERAPY CLINICIAN Gender Identity Female 06/17/2024 7:02 AM CDT Sexual Orientation Not on file documented as of this encounter Last Filed Vital Signs Vital Sign Reading Time Taken Comments Blood Pressure 106/80 05/21/2018 2:36 PM CDT Pulse 93 05/21/2018 2:36 PM CDT Temperature 36.9 ??C (98.5 ??F) 05/21/2018 2:36 PM CD T Respiratory Rate - - Oxygen Saturation 96% 05/21/2018 2:36 PM CDT Inhaled Oxygen Concentration - - Weight 59.8 kg (131 lb 12.8 oz) 05/21/2018 2:36 PM CDT Height 163.8 cm (5' 4.5 ) 05/21/2018 2:36 PM CDT Body Mass Index 22.27 05/21/2018 2:36 PM CDT documented in this encounter Patient Instructions * Patient Instructions* Mandeep Fountain MD - 05/21/2018 2:45 PM CDT Hi fiber diet and return 4 weeks documented in this encounter Progress Notes * Mandeep Fountain MD - 05/21/2018 2:45 PM CDT Subjective/Objective Patient ID: Sarahy Navarrete is a 48 y.o. female. Chief Complaint Abdominal Pain; Nausea; Diarrhea; and Poor Appetite ibs-d Review of Systems Constitutional: Negative for appetite change, fatigue and unexpected weight change. HENT: Negative for dental problem, sore throat and trouble swallowing. Eyes: Negative for photophobia. Respiratory: Negative for shortness of breath and wheezing. Cardiovascular: Negative for chest pain, palpitations and leg swelling. Gastrointestinal: Positive for abdominal distention, abdominal pain and diarrhea. Negative for blood in stool, constipation, nausea, rectal pain and vomiting. Endocrine: Negative. Negative for polydipsia and polyphagia. Genitourinary: Negative for difficulty urinating. Musculoskeletal: Negative for arthralgias, back pain, gait problem, joint swelling and myalgias. Skin: Negative. Negative for pallor and rash. Allergic/Immunologic: Negative for food allergies and immunocompromised state. Neurological: Negative. Hematological: Negative. Psychiatric/Behavioral: Negative. Physical Exam Constitutional: She is oriented to person, place, and time. She appears well- developed and well-nourished. HENT: Nose: Nose normal. Mouth/Throat: Oropharynx is clear and moist. Eyes: Conjunctivae and lids are normal. Neck: Trachea normal. No thyroid mass and no thyromegaly present. Cardiovascular: Normal rate, regular rhythm and normal pulses. Pulmonary/Chest: Effort normal and breath sounds normal. Abdominal: Soft. Normal appearance and bowel sounds are normal. Neurological: She is alert and oriented to person, place, and time. Skin: Skin is warm and dry. Psychiatric: She has a normal mood and affect. Assessment/Plan Diagnoses and all orders for this visit: Irritable bowel syndrome with diarrhea (K58.0) (Primary) Assessment & Plan: Recurrent bloating pain and erratic bms. No access to results of tests from elsewhere. PE neg today. Offered repeat egd/colon but this is ibs-d for all purposes so will try hi fiber diet and recap in4 weeks. documented in this encounter Miscellaneous Notes * Assessment & Plan Note - Mandeep Fountain MD - 05/21/2018 3:00 PM CDT Associated Problem(s): Irritable bowel syndrome with both constipation and diarrhea Recurrent bloating pain and erratic bms. No access to results of tests from elsewhere. PE neg today. Offered repeat egd/colon but this is ibs-d for all purposes so will try hi fiber diet and recap in4 weeks. documented in this encounter Plan of Treatment Upcoming Encounters Date Type Department Care Team (Latest Contact Info) Description 09/07/2024 8:30 AM [facility] Hospital Encounter [facility] [address] [place] [phone] Forest Catherine MD [address] [facility] [place] [address] 09/07/2024 8:30 AM HOME THERAPY CLINICIAN - 09/07/2024 9:00 AM [facility] Surgery [facility] [address] [place] [phone] Forest Catherine MD [address] [place] [address] EGD w/Endo Flip & YI placement Scheduled Procedures Name Priority Associated Diagnoses Date/Ti me ESOPHAGOGASTRODUODENOSCOPY Hiatal hernia Gastroesophageal reflux disease, unspecified whether esophagitis present 09/07/2024 8:30 AM HOME THERAPY CLINICIAN documented as of this encounter Visit Diagnoses Diagnosis Irritable bowel syndrome with diarrhea- Primary Irritable bowel syndrome Hiatal hernia Diaphragmatic hernia without mention of obstruction or gangrene Gastroesophageal reflux disease, unspecified whether esophagitis present documented in this encounter Historical Medications * This list may reflect changes made after this encounter. ciprofloxacin (CIPRO) 500 mg tablet 05/21/2018 08/09/2021 venlafaxine XR (EFFEXOR-XR) 150 mg 24 hr capsule TK 1 C PO D 0 05/13/2018 08/09/2021 added in this encounter Care Teams Top Printing Press Operator Relationship Specialty Start Date End Date Sumit Bose MD [address] [facility] [address] [place] [address] PCP - General Gastroenterology 04/15/17 10/11/18 documented as of this encounter
--- OUTSIDE RECORDS SUMMARY | 2024-08-16 04:35 | XMS_ITS | Encounter Summary ---
Author Organization [facility] Healthcare Address [address] [place] [address] Care Team Providers Care Bank Credit Card Collection Clerk Name Role Phone Mere Landa NP Unavailable [phone] Parmjit Dai MD Primary Care Provider [phone] Tico Burton MD Unavailable [phone] Encounter Details Date Type Department Care Team (Latest Contact Info) Description 09/09/2021 9:06 AM HAND WOODWORKING SANDER - 09/09/2021 10:14 AM HAND WOODWORKING SANDER Hospital Encounter [facility] [address] [place] [id number] Discharge Disposition: Discharge to home or self [...] on file Legal Sex Female 10:06 AM HAND WOODWORKING SANDER Gender Identity Female 06/17/2024 7:02 AM CDT [...] for nausea or vomiting 30 tablet 08/10/2021 09/09/2021 aspirin 325 mg tabletIndication s:cerebral ischemia,Cerebra l Ischemia Take 1 tablet (325 mg total) by mouth daily for 1 dose Take until Aug 15- when you restart eliquis 1 tablet 08/14/2021 09/17/2021 dicyclomine (BENTYL) 10 mg capsule Take 20 mg by mouth 2 (two) times a day 09/24/2021 escitalopram (LEXAPRO) 10 mg tabletIndication s:Anxiety with Depression Take 10 mg by mouth daily 10/29/2022 flecainide (TAMBOCOR) 50 mg tablet Take 50 mg by mouth 2 (two) times a day 09/02/2022 hydrOXYzine (ATARAX) 25 mg tablet Take 25 mg by mouth 3 (three) times a day as needed 08/14/2021 09/02/[address] (PROTONIX) 40 mg EC tablet Take 40 mg by mouth every 12 (twelve) hours 09/24/2021 SUMAtriptan (IMITREX) 50 mg tabletIndication s:Migraine Take 1 tablet (50 mg total) by mouth once as needed for migraine May repeat dose once in 2 hours if no relief. Do not exceed 2 doses in 24 hours. 11/13/2023 documented as of this encounter Discharge Disposition Disposition Code Departure Means Destination Discharge to home or self care documented in this encounter Plan of Treatment Upcoming Encounters Date Type Department Care Team (Latest Contact Info) Description 09/07/2024 8:30 AM [facility] Hospital Encounter [facility] [address] [phone] Forest Catherine MD [address] [place] [address] 09/07/2024 8:30 AM HAND WOODWORKING SANDER - 09/07/2024 9:00 AM HAND WOODWORKING SANDER Surgery [facility] [address] [place] [phone] Forest Catherine MD [address] [place] [address] EGD w/Endo Flip & YI placement Scheduled Procedures Name Priority Associated Diagnoses Date/Ti me ESOPHAGOGASTRODUODENOSCOPY Hiatal hernia Gastroesophageal reflux disease, unspecified whether esophagitis present 09/07/2024 8:30 AM HAND WOODWORKING SANDER documented as of this encounter Procedures Procedure Name Priority Date/Time Associated Diagnosis Comments XR ABDOMEN ERECT AND OR DECUBITS 2 VIEWS ED 09/09/2021 9:17 AM HAND WOODWORKING SANDER documented in this encounter Results * XR Abdomen Erect and or Decubitus 2 Views (09/09/2021 9:17 AM HAND WOODWORKING SANDER) Anatomical Region Laterality Modality Body, Abdomen N/A Computed Radiogr aphy 09/09/2021 9:20 AM HAND WOODWORKING SANDER Narrative 09/09/2021 9:22 AM HAND WOODWORKING SANDER EXAM DESCRIPTION: ?? XR ABDOMEN ERECT AND OR DECUBITUS 2 VIEWS REASON FOR STUDY: ?? Abdominal Pain ?? C/O n/v/d as well as +GUILLAUME and abdominal pain, RUQ and lower abdomen. Pt reports she also has cramping that also goes along with it . Pt reports hx of hiatal hernia repair as well as cholecystetomy ([id number]?). Pt has history of IBS. ?? TECHNIQUE: ??Supine and erect/decubitus ??radiographic views of the abdomen acquired. COMPARISON: ?? None FINDINGS: There is no definite evidence of bowel obstruction. ??There are prominent air-filled loops of small bowel measuring up to 2.8 cm. ??There is air and fecal debris noted in the colon. ??There is no definite evidence of free air under the diaphragm. ??Postsurgical clips are noted in the right upper quadrant the abdomen. ??There is a mild dextroscoliotic curvature of the spine with degenerative changes. IMPRESSION: ?? 1. ?? No definite evidence of bowel obstruction. 2. ?? Prominent air-filled loops of small bowel measuring up to 2.8 cm, which may be related to enteritis or ileus. ??Follow-up is recommended as clinically indicated. THIS IS AN ELECTRONICALLY VERIFIED FINAL REPORT 09/09/2021 9:22 AM - Electronically signed by ??Luis Ricketts D.O. PS: PS D: ??09/09/2021 9:22 AM T: ??09/09/2021 9:22 AM Report ID: [id number] Reading Location: ??[id number] Procedure Note Luis Ricketts, - 09/09/2021 EXAM DESCRIPTION: XR ABDOMEN ERECT AND OR DECUBITUS 2 VIEWS REASON FOR STUDY: Abdominal Pain C/O n/v/d as well as +GUILLAUME and abdominal pain, RUQ and lower abdomen. Ptreports she also has cramping that also goes along with it . Pt reports hx ofhiatal hernia repair as well as cholecystetomy ([id number]?). Pt has history ofIBS. TECHNIQUE: Supine and erect/decubitus radiographic views of the abdomen acquired. COMPARISON: None FINDINGS: There is no definite evidence of bowel obstruction. There are prominent air-filled loops of small bowel measuring up to 2.8 cm. There is air and fecal debris noted in the colon. There is no definite evidence of freeair under the diaphragm. Postsurgical clips are noted in the right upperquadrant the abdomen. There is a mild dextroscoliotic curvature of the spine with degenerative changes. IMPRESSION: 1. No definite evidence of bowel obstruction. 2. Prominent air-filled loops of small bowel measuring up to 2.8 cm,which may be related to enteritis or ileus. Follow-up is recommended asclinically indicated. THIS IS AN ELECTRONICALLY VERIFIED FINAL REPORT 09/09/2021 9:22 AM - Electronically signed by Luis Ricketts D.O. PS: PS Report ID: [id number] Reading Location: [id number] Kat Biggs MD IMG XR PROCEDURES Final R esult documented in this encounter Visit Diagnoses Not on filedocumented in this encounter Care Teams Bank Credit Card Collection Clerk Relationship Specialty Start Date End Date Parmjit Dai MD PCP - General 12/31/20 Mere Landa NP Nurse Practitioner 02/07/20 Tico Burton MD Surgeon General Surgery 08/09/21 documented as of this encounter
--- OUTSIDE RECORDS SUMMARY | 2024-08-16 04:35 | XMS_ITS | Encounter Summary ---
Author Organization [facility] Healthcare Address [address] [place] [address] Care Team Providers Care Grocery Clerk Name Role Phone Mere Landa NP Unavailable [phone] Parmjit aDi MD Primary Care Provider [phone] Tico Burton MD Unavailable [phone] Reason for Visit * Reason Comments Diarrhea Abdominal Pain Encounter Details Date Type Department Care Team (Late st Contact Info) Description 08/26/2021 - 08/26/2021 10:39 AM [facility] Emergency [facility] Emergency Department [address] [place] [id number] Discharge Disposition: Left without being seen Social History Tobacco Use Types Packs/Day Years [...] on file Legal Sex Female 10:06 AM TOW TRUCK DRIVER Gender Identity Female 06/17/2024 7:02 AM CDT Sexual Orientation Not on file documented as of this encounter Last Filed Vital Signs Vital Sign Reading Time Taken Comments Blood Pressure 113/74 08/26/2021 7:39 AM TOW TRUCK DRIVER Pulse 63 08/26/2021 7:39 AM TOW TRUCK DRIVER Temperature 37.1 ??C (98.7 ??F) 08/26/2021 7:39 AM CS T Respiratory Rate 18 08/26/2021 7:39 AM TOW TRUCK DRIVER Oxygen Saturation 100% 08/26/2021 7:39 AM TOW TRUCK DRIVER Inhaled Oxygen Concentration - - Weight 67.1 kg (148 lb) 08/26/2021 7:39 AM TOW TRUCK DRIVER Height 162.6 cm (5' 4 ) 08/26/2021 7:39 AM TOW TRUCK DRIVER Body Mass Index 25.4 08/26/2021 7:39 AM TOW TRUCK DRIVER documented in this encounter Discharge Diagnoses Diagnosis Procedure and treatment not carried out due to patient leaving prior to being seen by health care provider - PROCEDURE AND TREATMENT NOT CARRIED OUT DUE TO PATIENT LEAVING PRIOR TO BEING SEEN BY HEALTH CARE IN documented in this encounter Medications at Time [...] Discharge Disposition Disposition Code Departure Means Destination Left without being seen documented in this encounter ED Notes * Narda Kraus RN - 08/26/2021 7:38 AM CST Patient arrives with diarrhea x 3 this morning, patient states she was here 11 days ago and diagnosed with constipation and took miralax and has been going little santo each day and this morning she started having cramping in her abdomen and had the diarrhea. TRUCK DRIVER documented in this encounter Plan of Treatment Upcoming Encounters Date Type Department Care Team (Latest Contact Info) Description 09/07/2024 8:30 AM TOW TRUCK DRIVER Hospital Encounter [facility] [address] [place] [phone] Forest Catherine MD [address] [address] 09/07/2024 8:30 AM TOW TRUCK DRIVER - 09/07/2024 9:00 AM TOW TRUCK DRIVER Surgery [facility] [address] [place] [phone] Forest Catherine MD [address] [address] EGD w/Endo Flip & YI placement Scheduled Procedures Name Priority Associated Diagnoses Date/Ti me ESOPHAGOGASTRODUODENOSCOPY Hiatal hernia Gastroesophageal reflux disease, unspecified whether esophagitis present 09/07/2024 8:30 AM TOW TRUCK DRIVER documented as of this encounter Procedures Procedure Name Priority Date/Time Associated Diagnosis Comments EGFR STAT 08/26/2021 8:05 AM TOW TRUCK DRIVER DIFFERENTIAL AUTO STAT 08/26/2021 8:0 5 AM TOW TRUCK DRIVER CBC WITH AUTO DIFFERENTIAL STAT 08/26/2021 8:05 AM TOW TRUCK DRIVER COMPREHENSIVE METABOLIC PANEL STAT 08/26/2021 8:05 AM TOW TRUCK DRIVER documented in this encounter Results * eGFR (08/26/2021 8:05 AM TOW TRUCK DRIVER) eGFR 98 mL/min/1. 73 m2 [facility] Comment: [...] interpretive data was last reviewed 2021. Blood 08/26/2021 8:05 AM TOW TRUCK DRIVER 08/26/2021 8:07 AM TOW TRUCK DRIVER us Juice Pineda MD LAB BLOOD ORDERABLES Final R esult [facility] 1 [facility] Department [place] [address] * Differential, auto (08/26/2021 8:05 AM TOW TRUCK DRIVER) Neutrophil abs 3.9 1.7 - 6.5 K/cumm [facility] Imm gran abs 0.0 0.0 - 0.1 K/cumm [facility] Lymphocyte abs 1.8 0.8 - 3.3 K/cumm [facility] Monocyte abs 0.8 0.2 - 0.8 K/cumm [facility] Eosinophil abs 0.2 0.0 - 0.5 K/cumm [facility] Basophil abs 0.1 0.0 - 0.1 K/cumm [facility] Neutrophil pct 57.3 % [facility] Comment: Interpretive [...] was last revised on 2017. Lymphocyte pct 27.2 % [facility] Comment: Interpretive Data Percent cell count reference ranges are not reported, since discordance with absolute values may lead to misinterpretation of CBC data. Current Interpretive Data was last revised on 2017. Monocyte pct 11.7 % [facility] Comment: Interpretive Data Percent cell count reference ranges are not reported, since discordance with absolute values may lead to misinterpretation of CBC data. Current Interpretive Data was last revised on 2017. Eosinophil pct 3.0 % [facility] Comment: Interpretive Data Percent cell count reference ranges are not reported, since discordance with absolute values may lead to misinterpretation of CBC data. Current Interpretive Data was last revised on 2017. Basophil pct 0.7 % [facility] Comment: Interpretive Data Percent cell count reference ranges are not reported, since discordance with absolute values may lead to misinterpretation of CBC data. Current Interpretive Data was last revised on 2017. Blood 08/26/2021 8:05 AM TOW TRUCK DRIVER 08/26/2021 8:07 AM TOW TRUCK DRIVER us Juice Pineda MD LAB BLOOD ORDERABLES Final R esult [facility] ([place] 1 [facility] Department [place] [address] * Comprehensive metabolic panel (08/26/2021 8:05 AM TOW TRUCK DRIVER) Sodium 143 135 - 145 mmol/L [facility] Potassium, pl 4.4 3.3 - 4.9 mmol/L [facility] Chloride 105 97 - 110 mmol/L [facility] CO2 28 22 - 32 mmol/L [facility] Anion gap 10 2 - 15 mmol/L [facility] BUN 11 8 - 25 mg/dL [facility] Creatinine 0.73 0.60 - 1.10 mg/dL [facility] [...] interpretive data was last revised 2017. Calcium 9.8 8.5 - 10.3 mg/dL [facility] Bilirubin, total 0.3 0.1 - 1.2 mg/dL [facility] Protein, pl 7.7 6.5 - 8.5 g/dL [facility] Albumin 4.5 3.5 - 5.0 g/dL [facility] Alk phos 86 40 - 130 Units/L [facility] ALT 17 7 - 45 Units/L [facility] AST 23 10 - 45 Units/L [facility] Blood 08/26/2021 8:05 AM TOW TRUCK DRIVER 08/26/2021 8:07 AM TOW TRUCK DRIVER us Juice Pineda MD LAB BLOOD ORDERABLES Final R esult [facility] 1 [facility] Department [place] [address] * (ABNORMAL) CBC with auto differential (08/26/2021 8:05 AM TOW TRUCK DRIVER) WBC 6.7 3.8 - 9.9 K/cumm [facility] Hgb 11.2(L) 11.9 - 15.5 g/dL [facility] Hct 35.9 35.6 - 45.5 % [facility] Plt 349 150 - 400 K/cumm [facility] MPV 10.6 9.1 - 12.3 fL [facility] RBC 4.00 3.90 - 5.20 M/cumm [facility] MCV 89.8 81.3 - 96.4 fL [facility] MCH 28.0 27.1 - 33.3 pg [facility] MCHC 31.2(L) 32.3 - 35.7 g/dL [facility] RDW CV 14.3 11.1 - 14.9 % [facility] RDW SD 47.3 35.7 - 48.1 fL [facility] NRBC abs 0.00 0.00 - 0.01 K/cumm [facility] ([place] Blood 08/26/2021 8:05 AM TOW TRUCK DRIVER 08/26/2021 8:07 AM TOW TRUCK DRIVER Juice Pineda MD LAB BLOOD ORDERABLES Final R esult [facility] ([place]) 1 [facility] Department [place] [address] documented in this encounter Visit Diagnoses Not on filedocumented in this encounter Care Teams Grocery Clerk Relationship Specialty Start Date End Date Parmjit Dai MD PCP - General 12/31/20 Mere Landa NP Nurse Practitioner 02/07/20 Tico Burton MD Surgeon General Surgery 08/09/21 documented as of this encounter
--- OUTSIDE RECORDS SUMMARY | 2024-08-16 04:35 | XMS_ITS | Encounter Summary ---
Author Organization [facility] Healthcare Address [address] [place] [address] Care Team Providers Care University Relations Recruiter Name Role Phone Mere Landa NP Unavailable [phone] Parmjit Dai MD Primary Care Provider [phone] Tico Burton MD Unavailable [phone] Reason for Visit * Reason Comments Abdominal Pain Encounter Details Date Type Department Care Team (Late st Contact Info) Description 08/27/2021 2:45 AM PERL DEVELOPER - 08/27/2021 6:49 AM [facility] Emergency [facility] Emergency Department [address] [place] [address] Matilde Knowles MD [address] [place] [id number] Abdominal pain (Primary Dx); Alternating constipation and diarrhea; Bradycardia Discharge Disposition: Discharge to home or self [...] Frequency of Binge Drinking Not on file 12/1 PHQ-2 Answer Date Recorded PHQ-2 Total Score (If total score is 3 or more points, staff should administer the PHQ-9) 0 08/09/2021 Comments No Sex and Gender Information Value Date Recorded Sex Assigned at Not on file Legal Sex Female 10:06 AM PERL DEVELOPER Gender Identity Female 06/17/2024 7:02 AM CDT Sexual Orientation Not on file documented as of this encounter Last Filed Vital Signs Vital Sign Reading Time Taken Comments Blood Pressure 130/82 08/27/2021 6:45 AM PERL DEVELOPER Pulse 51 08/27/2021 6:45 AM PERL DEVELOPER Temperature 36.6 ??C (97.9 ??F) 08/26/2021 9:43 PM CS T Respiratory Rate 16 08/27/2021 6:45 AM PERL DEVELOPER Oxygen Saturation 97% 08/27/2021 6:45 AM PERL DEVELOPER Inhaled Oxygen Concentration - - Weight 67.1 kg (148 lb) 08/26/2021 9:43 PM PERL DEVELOPER Height 162.6 cm (5' 4 ) 08/26/2021 9:43 PM PERL DEVELOPER Body Mass Index 25.4 08/26/2021 9:43 PM PERL DEVELOPER documented in this encounter Discharge Diagnoses Diagnosis Constipation, unspecified - CONSTIPATION, UNSPECIFIED Diarrhea, unspecified - DIARRHEA, UNSPECIFIED Bradycardia, unspecified - BRADYCARDIA, UNSPECIFIED Personal history of transient ischemic attack (TIA), and cerebral infarction without residual deficits - PERSONAL HISTORY OF TRANSIENT ISCHEMIC ATTACK (TIA), AND CEREBRAL INFARCTION WITHOUT RESIDUAL DEFICI Other fdc (current) drug therapy - OTHER EXECUTIVE TEAM LEADER (CURRENT) DRUG THERAPY termite treater helper (current) use of aspirin - EXECUTIVE TEAM LEADER (CURRENT) USE OF ASPIRIN [facility] (current) use of anticoagulants - EXECUTIVE TEAM LEADER (CURRENT) USE OF ANTICOAGULANTS Long-term (current) use of anticoagulants Essential (primary) hypertension - ESSENTIAL (PRIMARY) HYPERTENSION Unspecified essential hypertension documented in this encounter Discharge Instructions * Attachments The following attachments cannot be sent through Care Everywhere. * Abdominal Pain, Unknown Cause, (Female) (Wolof) * Symptoms With Uncertain Cause (Wolof) documented in this encounter Medications at Time [...] ED Notes * Matilde Knowles MD - 08/27/2021 3:01 AM CST Triage Chief Complaint: Chief Complaint Patient presents with ??? Abdominal Pain Portions of the record may have been created with voice recognition software. Occasional wrong-word or '[id number]' substitutions may have occurred due to the inherent limitations of voice recognition software. Read the chart carefully and recognize, using context, where substitutions have occurred. H&P: Sarahy Gill is a 51 y.o. female with h/o irritable bowel syndrome and cyclic vomiting syndrome and previous psychiatric illness, treated for UTI with Bactrim after positive UA on 08/13, presents for abdominal pain that is epigastric and in the low abdomen. It does not move or radiate. It started about 3 days ago. Has had reduced appetite for about 3 days. Has started MiraLax after her last visit for constipation and is now having diarrhea. No black or bloody stool. No hemoptysis. Some nausea but not vomiting. Has had urinary frequency for 1 and half days. No fever. No vaginal bleeding or discharge. No chest pain or shortness of breath or cough. Patient is worried she has recurrence of intussusception seen on 08/08/2021. Resolved on 08/09/2021. Patient had an abdominal pelvis CT scanon 08/22/2021, 5 days ago. At that time was noted to have some air bubbles in her bladder. A UA at that time was normal. ROS: At least 10 systems reviewed and [...] EC tablet SUMAtriptan (IMITREX) 50 mg tablet Allergies Allergen Reactions ??? Compazine [Prochlorperazine] Other (See comments) made me feel weird, odd also agitation ??? Phenergan [Promethazine] Agitation ??? Zithromax [Azithromycin] Stomach upset Nursing Notes Reviewed. Physical Exam: ED Triage Vitals [08/26/213] Temp Pulse Resp BP SpO2 36.6 ??C (97.9 ??F) 61 16 114/76 100 % Temp src Heart Rate Source Patient Position BP Location FiO2 (%) Temporal -- -- -- -- GENERAL APPEARANCE: Awake and alert. No acute [...] from this visit (if applicable): Labs Reviewed URINALYSIS AND REFLEX TO MICROSCOPIC AND CULTURE - Abnormal Result Value Color, ur Yellow Clarity, ur Clear Specific gravity, ur 1.013 pH, urine 7.0 Protein, ur ql Negative Glucose, ur ql Negative Ketones, ur Negative Bilirubin, ur Negative Blood, ur Negative Urobilinogen, ur <2.0 Nitrite, ur Negative Leukocyte esterase, ur 2+ (*) UA reflex comment Reflex to microscopic UA will be performed. Narrative: Urine pH is affected by diet, medications, systemic acid-base disturbances, and renal tubular function. pH may affect urinary stone formation. For example, urine pH below 6.0 may help reduce the tendency for calcium phosphate stones and pH greater than 6.0 may reduce the tendency for uric acid stone formation. Source: [employer].Last revised 09-10-2017 CBC WITH AUTO DIFFERENTIAL - Abnormal WBC 6.8 Hgb 10.8 (*) Hct 35.1 (*) Plt 332 MPV 10.8 RBC 3.92 MCV 89.5 MCH 27.6 MCHC 30.8 (*) RDW CV 14.6 RDW SD 47.6 NRBC abs 0.00 URINALYSIS, MICROSCOPIC ONLY - Abnormal WBC, ur 11-20 (*) RBC, ur 0-2 Epithelial cells, squamous, ur 6-10 (*) Bacteria, ur Trace (*) Mucous, ur Present (*) Culture Reflex Comment Reflex to urine culture will be performed. URINE CULTURE COMPREHENSIVE METABOLIC PANEL Sodium 144 Potassium, pl 3.7 Chloride 106 CO2 26 Anion gap 12 BUN 10 Creatinine 0.72 Glucose 109 Calcium 9.6 Bilirubin, total 0.3 Protein, pl 7.5 Albumin 4.7 Alk phos 79 ALT 16 AST 37 DIFFERENTIAL AUTO Neutrophil abs 3.6 Imm gran abs 0.0 Lymphocyte abs 2.3 Monocyte abs 0.8 Eosinophil abs 0.1 Basophil abs 0.0 Neutrophil pct 53.1 Imm gran pct 0.1 Lymphocyte pct 34.0 Monocyte pct 11.2 Eosinophil pct 1.2 Basophil pct 0.4 EGFR eGFR 100 Radiographs (if obtained): Report Reviewed: No orders to display EKG (if obtained): (All EKGs are interpreted by myself in the absence of a machine welder) Procedures Chart review shows: Results for SARAHY GILL ( ) as of 08/27/2021 05:35 Ref. Range 08/22/2021 09:25 Color, ur Latest Ref Range: Yellow Straw Clarity, ur Latest Ref Range: Clear Clear Specific gravity, ur Latest Ref Range: 1.003 - 1.030 1.006 pH, urine Unknown 6.5 Protein, ur ql Latest Ref Range: Negative Negative Glucose, ur ql Latest Ref Range: Negative Negative Ketones, ur Latest Ref Range: Negative Negative Bilirubin, ur Latest Ref Range: Negative Negative Blood, ur Latest Ref Range: Negative Negative Urobilinogen, ur Latest Ref Range: <2.0 mg/dL <2.0 Nitrite, ur Latest Ref Range: Negative Negative Leukocyte esterase, ur Latest Ref Range: Negative Negative CT abdomen pelvis 08/22/2021, 5 days ago FINDINGS: LOWER CHEST: No significant pulmonary abnormalities. No effusion. ?? LIVER: Normal size. No identified cystic or solid masses. ?? GALLBLADDER: Surgically removed ?? BILE DUCTS: No intrahepatic or extrahepatic ductal dilatation. ?? SPLEEN: Normal size. No focal lesions. ?? PANCREAS: No identified cystic or solid masses. No significant calcifications. No adjacent inflammation or peripancreatic fluid collections. Pancreatic duct not dilated. ?? ADRENALS: Normal. ?? KIDNEYS/URINARY TRACT: No identified significant cystic or solid masses. A couple of small benign cysts are seen in the right kidney. No visualized stones. No hydronephrosis or hydroureter. Symmetric enhancement. A couple of air bubbles are seen in the bladder. ?? GI: No bowel obstruction was seen. There is no intussusception. A large amount of stool is seen throughout the colon. ?? PERITONEUM: No ascites or free air. ?? RETROPERITONEUM: No mass or adenopathy. ?? REPRODUCTIVE: No significant abnormality. ?? VASCULATURE: No abdominal aortic aneurysm. ?? MUSCULOSKELETAL: No significant abnormality. ?? OTHER: No other abnormality. IMPRESSION: 1. Large amount of stool in the colon. ?? 2. Air bubbles in the bladder. This might be due to recent catheterization. Correlation with the catheterization history is required. ?? 3. No intussusception. Patient developed dysuria on 08/13. Urinalysis significant for 4+ leukocyte esterase and >50 wbc. Patient started antibiotics Bactrim. Collected 08/13/2021 08:47 ?? Status: Final result ?? Visible to patient: Yes (seen) ?? Specimen Information: Urine ?? 0 Result Notes Component Report ??.??(.) Final Report: Greater than or equal to 100,000 colonies/mL of Escherichia coli Comment: Testing performed by: [facility], [address] [facility], [place]., [address] Organism ESCHERICHIA COLI Resulting Agency [facility] Susceptibility Escherichia coli INTERPRETATION Ampicillin Susceptible Cefazolin Susceptible Cefdinir Susceptible Cefepime Susceptible Ceftazidime Susceptible Ceftriaxone Susceptible Cefuroxime-axetil Susceptible Cephalexin Susceptible Ciprofloxacin Susceptible Gentamicin Susceptible Meropenem Susceptible Nitrofurantoin Susceptible Piperacillin/Tazobactam Susceptible Trimethoprim with Sulfamethoxazole Susceptible ?? 08/08/21 IMPRESSION: Intussusception has resolved. No acute abnormality identified. ED course/MDM: Vitals: 08/27/21 0525 08/27/21 0545 08/27/21 0550 08/27/21 0630 BP: 103/75 113/72 Pulse: (!) 49 56 (!) 46 51 Resp: 16 14 16 17 Temp: TempSrc: SpO2: 100% 99% 99% 99% Weight: Height: ED Course as of 08/27/21 0643 Time: 08/27 0300 Value: Epithelial cells, squamous, ur(!): 6-10 Comment: (Reviewed) By: Matilde Knowles MD Time: 08/27 0300 Value: Nitrite, ur: Negative Comment: (Reviewed) By: Matilde Knowles MD MDM: 51-year-old female who is well known to this department presenting multiple times recently for various complaints is presenting today with abdominal pain and diarrhea. Was having constipation startedon stool softeners. Not having diarrhea. On review of system she did endorse urinary frequency and urgency. No dysuria. UA is really not consistent with UTI. A previous UA was positive for E coli andat that time she had greater than 50 white blood cells. Today it is slightly elevated with no nitrite. Low suspicion for UTI at this time. Urine will be reflex to a culture. Due to chemistry equipment being down in our lab, patient's chemistry results were delayed. No concerning abnormalities. Patient has had multiple CT scans including 1 5 days ago. At this time based on her benign abdominal exam, advanced imaging not indicated. She was treated with Zofran. If able to tolerate p.o. okay for discharge. Clinical Impression: 1. Abdominal pain 2. Alternating constipation and diarrhea 3. Bradycardia Disposition: Discharge (Please note that portions of this note may have been completed with a voice recognition program. Artificial Glass Eye Maker errors occur. Please contact me for any clarification.) Matilde Knowles MD 08/27/21 0643 DEVELOPER * Queenie Alves RN - 08/26/2021 9:40 PM CST Pt amb to er by self. Pt c/o pain to upper and lower abd pain since yesterday. States she has IBS. States she has had diarrhea all day today. resp even and non-labored. Pt c/o feeling nauseated without emesis. States she took zofran at home. Denies fever. DEVELOPER documented in this encounter Plan of Treatment Upcoming Encounters Date Type Department Care Team (Latest Contact Info) Description 09/07/2024 8:30 AM PERL DEVELOPER Hospital Encounter [facility] [address] [place] [phone] Forest Catherine MD [address] [address] 09/07/2024 8:30 AM PERL DEVELOPER - 09/07/2024 9:00 AM PERL DEVELOPER Surgery [facility] [address] [place] [phone] Forest Catherine MD [address] [address] EGD w/Endo Flip & YI placement Scheduled Procedures Name Priority Associated Diagnoses Date/Ti me ESOPHAGOGASTRODUODENOSCOPY Hiatal hernia Gastroesophageal reflux disease, unspecified whether esophagitis present 09/07/2024 8:30 AM PERL DEVELOPER documented as of this encounter Procedures Procedure Name Priority Date/Time Associated Diagnosis Comments EGFR STAT 08/27/2021 2:04 AM PERL DEVELOPER DIFFERENTIAL AUTO STAT 08/27/2021 2:0 4 AM PERL DEVELOPER CBC WITH AUTO DIFFERENTIAL STAT 08/27/2021 2:04 AM PERL DEVELOPER COMPREHENSIVE METABOLIC PANEL STAT 08/27/2021 2:04 AM PERL DEVELOPER URINALYSIS AND REFLEX TO MICROSCOPIC AND CULTURE STAT 08/26/2021 9:52 PM PERL DEVELOPER URINALYSIS, MICROSCOPIC ONLY STAT 08/26/2021 9:52 PM PERL DEVELOPER URINE CULTURE STAT 08/26/2021 9:52 PM PERL DEVELOPER documented in this encounter Results * eGFR (08/27/2021 2:04 AM PERL DEVELOPER) eGFR 100 mL/min/1. 73 m2 [facility] ([place]) Comment: Interpretive Data Reference Interval Normal ?>/= [...] Current interpretive data was last reviewed 2021. Testing performed by: [facility], [address] [place] [address], [place]., [address] Blood 08/27/2021 2:04 AM PERL DEVELOPER 08/27/2021 5:03 AM PERL DEVELOPER us Mandeep Kaba MD LAB BLOOD ORDERABLES Final Result [facility] ([place]) 1 [facility] [place] [address] * Differential, auto (08/27/2021 2:04 AM PERL DEVELOPER) Neutrophil abs 3.6 1.7 - 6.5 K/cumm [facility] ([place]) Imm gran abs 0.0 0.0 - 0.1 K/cumm [facility] ([place]) Lymphocyte abs 2.3 0.8 - 3.3 K/cumm [facility] ([place]) Monocyte abs 0.8 0.2 - 0.8 K/cumm [facility] ([place]) Eosinophil abs 0.1 0.0 - 0.5 K/cumm [facility] ([place]) Basophil abs 0.0 0.0 - 0.1 K/cumm [facility] ([place]) Neutrophil pct 53.1 % [facility] ([place]) Comment: Interpretive [...] was last revised on 2017. Lymphocyte pct 34.0 % [facility] ([place]) Comment: Interpretive Data Percent cell count reference ranges are not reported, since discordance with absolute values may lead to misinterpretation of CBC data. Current Interpretive Data was last revised on 2017. Monocyte pct 11.2 % [facility] ([place]) Comment: Interpretive Data Percent cell count reference ranges are not reported, since discordance with absolute values may lead to misinterpretation of CBC data. Current Interpretive Data was last revised on 2017. Eosinophil pct 1.2 % [facility] ([place]) Comment: Interpretive [...] Data was last revised on 2017. Blood 08/27/2021 2:04 AM PERL DEVELOPER 08/27/2021 2:23 AM PERL DEVELOPER us Matilde Knowles MD LAB BLOOD ORDERABLES Fin al Result [facility] ([place]) 1 [facility] [place] [address] * Comprehensive metabolic panel (08/27/2021 2:04 AM PERL DEVELOPER) Sodium 144 135 - 145 mmol/L [facility] ([place]) Comment:Testing performed by : [address] [address] Potassium, pl 3.7 3.3 - 4.9 mmol/L [facility] ([place]) Comment:Testing performed by : [facility], [address] [place] [address], [address] Chloride 106 97 - 110 mmol/L [facility] ([place]) Comment:Testing performed by : [facility], [address] [place] [address], [address] CO2 26 22 - 32 mmol/L [facility] ([place]) Comment:Testing performed by : [address] [address] Anion gap 12 2 - 15 mmol/L [facility] ([place]) Comment:Testing performed by : [address] [address] BUN 10 8 - 25 mg/dL [facility] ([place]) Comment:Testing performed by : [address], [address] Creatinine 0.72 0.60 - 1.10 mg/dL [facility] ([place]) Comment:Testing performed by : [address], [address] Glucose 109 70 - 199 mg/dL [facility] ([place]) [...] Current interpretive data was last revised 2017. Testing performed by: [facility], [address] [place] [address]., [address] Calcium 9.6 8.5 - 10.3 mg/dL [facility] ([place]) Comment:Testing performed by : [address] [address] Bilirubin, total 0.3 0.1 - 1.2 mg/dL [facility] ([place]) Comment:Testing performed by : [address], [address] Protein, pl 7.5 6.5 - 8.5 g/dL [facility] ([place]) Comment:Testing performed by : [address], [address] Albumin 4.7 3.5 - 5.0 g/dL [facility] ([place]) Comment:Testing performed by : [address], [address] Alk phos 79 40 - 130 Units/L [facility] ([place]) Comment:Testing performed by : [address], [address] ALT 16 7 - 45 Units/L [facility] ([place]) Comment:Testing performed by : [address], [address] AST 37 10 - 45 Units/L [facility] ([place]) Comment:Testing performed by : [address], [address] Blood 08/27/2021 2:04 AM PERL DEVELOPER 08/27/2021 2:23 AM PERL DEVELOPER us Matilde Knowles MD LAB BLOOD ORDERABLES Fin al Result [facility] ([place]) 1 [facility] Department [place] [address] * (ABNORMAL) CBC with auto differential (08/27/2021 2:04 AM PERL DEVELOPER) WBC 6.8 3.8 - 9.9 K/cumm [facility] ([place]) Hgb 10.8(L) 11.9 - 15.5 g/dL [facility] ([place]) Hct 35.1(L) 35.6 - 45.5 % [facility] ([place]) Plt 332 150 - 400 K/cumm [facility] ([place]) MPV 10.8 9.1 - 12.3 fL [facility]) RBC 3.92 3.90 - 5.20 M/cumm [facility] ([place]) MCV 89.5 81.3 - 96.4 fL [facility] ([place]) MCH 27.6 27.1 - 33.3 pg [facility] ([place]) MCHC 30.8(L) 32.3 - 35.7 g/dL [facility] ([place]) RDW CV 14.6 11.1 - 14.9 % [facility]) RDW SD 47.6 35.7 - 48.1 fL [facility] ([place]) NRBC abs 0.00 0.00 - 0.01 K/cumm [facility] ([place]) Blood 08/27/2021 2:04 AM PERL DEVELOPER 08/27/2021 2:23 AM PERL DEVELOPER us Matilde Knowles MD LAB BLOOD ORDERABLES Fin al Result [facility] ([place]) 1 [facility] Department [place] [address] * Urine culture Urine (08/26/2021 9:52 PM PERL DEVELOPER) Report Final Report: Less than 100,000 colonies/mL (clinically insignificant growth based on current clinical standards) [facility] ([place]) Comment:Testing performed by : [facility], [address] [facility], [place]., [address] Organism (CLINICALLY INSIGNIFICANT GROWTH [facility] ([place]) Urine 08/26/2021 9:52 PM PERL DEVELOPER 08/27/2021 1:13 AM PERL DEVELOPER Narrative [facility] ([place]) - 08/28/2021 6:44 AM PERL DEVELOPER Urine culture reflexed based upon urinalysis results. Testing performed by [facility] ([phone]) us Mandeep Kaba MD LAB MICROBIOLOGY - GENERAL ORDERABLES Final Result Performing Organization Address [facility] Co de Phone Number [facility] ([place] 1 [facility] [place] [address] * (ABNORMAL) Urinalysis, microscopic only (08/26/2021 9:52 PM PERL DEVELOPER) WBC, ur 11-20(A) 0 - 5 /HPF [facility] ([place]) RBC, ur 0-2 0 - 2 /HPF [facility] ([place]) Epithelial cells, squamous, ur 6-10(A) 0 - 5 /HPF [facility] ([place]) Bacteria, ur Trace(A) [facility] ([place]) Mucous, ur Present(A) [facility] ([place]) Culture Reflex Comment Reflex to urine culture will be performed. [facility] ([place]) Urine 08/26/2021 9:52 PM PERL DEVELOPER 08/26/2021 9:55 PM PERL DEVELOPER us Matilde Knowles MD LAB URINE ORDERABLES Fin al Result Performing Organization Address [facility] Co de Phone Number [facility] 1 [facility] [place] [address] * (ABNORMAL) Urinalysis reflex to microscopic and culture Urine (08/26/2021 9:52 PM PERL DEVELOPER) Color, ur Yellow Yellow [facility] ([place]) Clarity, ur Clear Clear [facility] ([place]) Specific gravity, ur 1.013 1.003 - 1.030 [facility] ([place]) pH, urine 7.0 [facility] ([place]) Protein, ur ql Negative Negative [facility]) Glucose, ur ql Negative Negative [facility]) Ketones, ur Negative Negative [facility]) Bilirubin, ur Negative Negative [facility]) Blood, ur Negative Negative [facility]) Urobilinogen, ur <2.0 <2.0 mg/dL [facility] ([place]) Nitrite, ur Negative Negative [facility] ([place]) Leukocyte esterase, ur 2+(A) Negative [facility] ([place]) UA reflex comment Reflex to microscopic UA will be performed. [facility] Urine 08/26/2021 9:52 PM PERL DEVELOPER 08/26/2021 9:55 PM PERL DEVELOPER Narrative [facility] ([place] - 08/26/2021 10:03 PM PERL DEVELOPER ?? Urine pH is affected by diet, medications, systemic acid-base disturbances, and renal tubular function. ??pH may affect urinary stone formation. ??For example, urine pH below 6.0 may help reduce the tendency for calcium phosphate stones and pH greater than 6.0 may reduce the tendency for uric acid stone formation. Source: [employer]. Last revised 09-10-2017 us Matilde Knowles MD LAB MICROBIOLOGY - [facility] AL ORDERABLES Final Result [facility] ([place]) 1 [facility] [place] [address] documented in this encounter Visit Diagnoses Diagnosis Abdominal pain- Primary Abdominal pain, unspecified site Alternating constipation and diarrhea Bradycardia Other specified cardiac dysrhythmias Hiatal hernia Diaphragmatic hernia without mention of obstruction or gangrene Gastroesophageal reflux disease, unspecified whether esophagitis present documented in this encounter Administered Medications Inactive Administered Medications - up to 3 most recent administrations Medication Order MAR Action Action Date Dose Rate Site ondansetron ODT (ZOFRAN-ODT) disintegrating tablet 4 mg 4 mg, oral, Once, On Thu08/27/21 at 0438, For 1 dose, Indications: Nausea, VomitingIndications:Nausea,Vomiting Given 08/27/2021 4:43 AM PERL DEVELOPER 4 mg documented in this encounter Active and Recently Administered Medications Times are shown in PERL DEVELOPER. Scheduled Medication Order 08/25/2021 08/26/2021 08/27/2021 ondansetron ODT (ZOFRAN-ODT) disintegrating tablet 4 mg (COMPLETED) 4 mg, oral, Once, On Thu08/27/21 at 0438, For 1 dose, Indications: Nausea, Vomiting 0443 (Given - Provid er: Riaz Marinelli, KIET) documented in this encounter Orders Medications Ordered That Rg ht Not Have Been Administered Count Last Ordered Date First Ordered Date ondansetron ODT (ZOFRAN-ODT) disintegrating tablet 4 mg 1 08/27/2021 documented in this encounter Care Teams University Relations Recruiter Relationship Specialty Start Date End Date Parmjit Dai MD PCP - General 12/31/20 Mere Landa NP Nurse Practitioner 02/07/20 Tico Burton MD Surgeon General Surgery 08/09/21 documented as of this encounter
--- OUTSIDE RECORDS SUMMARY | 2024-08-16 04:35 | XMS_ITS | Encounter Summary ---
Author Organization [facility] Healthcare Address [address] [place] [address] Care Team Providers Care Corporate Sales Trainer Name Role Phone Mere Landa NP Unavailable [phone] Parmjit Dai MD Primary Care Provider [phone] Tico Burton MD Unavailable [phone] Ivan Liang MD Unavailable Reason for Visit * Reason Onset Date Comments Scheduling Appointments 06/19/2021 confirmi ng mammogram appt Encounter Details Date Type Department Care Team (Late st Contact Info) Description 06/19/2021 Telephone [facility] [address] [place] [id number] Cheryl Trejo RT Scheduling Appointments (confirming mammogram appt) Social History Tobacco Use Types Packs/Day Years Used Date Smoking Tobacco: Former Cigarettes 1 - 1999 Smokeless Tobacco: Never Comments:off and on Alcohol Use Standard Drinks/Week Comments No 0 (1 standard drink = 0.6 oz pur e alcohol) on occasion Comments No Sex and Gender Information Value Date Recorded Sex Assigned at Not on file Legal Sex Female 10:06 AM [employer] APPRENTICE Gender Identity Female 06/17/2024 7:02 AM CDT Sexual Orientation Not on file documented as of this encounter Plan of Treatment Upcoming Encounters Date Type Department Care Team (Latest Contact Info) Description 09/07/2024 8:30 AM [employer] MECH[employer]IC APPRENTICE Hospital Encounter [address] [place] [phone] Forest Catherine MD [address] [address] 09/07/2024 8:30 AM [employer] MECHANIC APPRENTICE - 09/07/2024 9:00 AM PIANO MECHANIC APPRENTICE Surgery [facility] [address] [place] [phone] Forest Catherine MD [address] [address] EGD w/Endo Flip & YI placement Scheduled Procedures Name Priority Associated Diagnoses Date/Ti ri ESOPHAGOGASTRODUODENOSCOPY Hiatal hernia Gastroesophageal reflux disease, unspecified whether esophagitis present 09/07/2024 8:30 AM [employer] ME[employer] APPRENTICE documented as of this encounter Visit Diagnoses Not on filedocumented in this encounter Additional Health Concerns Infection Onset Date Last Indicated Resolved Time COVID: Suspected 06/09/2022 06/09/2022 06/09/2022 11:28 PM CDT COVID: Suspected 07/06/2022 07/06/2022 07/06/2022 3:52 AM [employer] APPRENTICE COVID: Suspected 08/18/2022 08/18/2022 08/18/2022 12:59 AM [employer] ME[employer]IC APPRENTICE COVID: Suspected 09/19/2023 09/19/2023 09/19/2023 11:01 AM [employer] ME[employer]IC APPRENTICE C. difficile suspected 07/21/2024 07/21/202407/22 3:05 AM [employer] ME[employer] APPRENTICE documented as of this encounter Care Teams Corporate Sales Trainer Relationship Specialty Start Date End Date Parmjit Dai MD PCP - General 12/31/20 Mere Landa NP Nurse Practitioner 02/07/20 Tico Burton MD Surgeon General Surgery 08/09/21 Ivan Liang MD Consulting Physician General Surgery 09/09/23 documented as of this encounter
--- OUTSIDE RECORDS SUMMARY | 2024-08-16 04:35 | XMS_ITS | Encounter Summary ---
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 [employer] Name Role Phone Mere Landa NP Unavailable [phone] Parmjit Dai MD Primary Care Provider [phone] Tico Burton MD Unavailable [phone] Reason for Visit * Reason Comments Multiple Medical Complaints Encounter Details Date Type Department Care Team (Late st Contact Info) Description 09/09/2021 10:15 AM GUN PERFORATOR - 09/09/2021 3:16 PM GUN PERFORATOR Emergency [facility] Emergency Department [address] [place] [address] Cornelius Monson MD [address] [place] [id number] Abdominal pain (Primary Dx); Irritable bowel syndrome with diarrhea Discharge Disposition: Discharge to home or [...] on file Legal Sex Female 10:06 AM GUN PERFORATOR Gender Identity Female 06/17/2024 7:02 AM CDT Sexual Orientation Not on file documented as of this encounter Last Filed Vital Signs Vital Sign Reading Time Taken Comments Blood Pressure 115/73 09/09/2021 3:00 PM GUN PERFORATOR Pulse 68 09/09/2021 3:00 PM GUN PERFORATOR Temperature 36.9 ??C (98.5 ??F) 09/09/2021 9:03 AM CS T Respiratory Rate 18 09/09/2021 9:03 AM GUN PERFORATOR Oxygen Saturation 100% 09/09/2021 3:00 PM GUN PERFORATOR Inhaled Oxygen Concentration - - Weight 67.1 kg (148 lb) 09/09/2021 9:03 AM GUN PERFORATOR Height 162.6 cm (5' 4 ) 09/09/2021 9:03 AM GUN PERFORATOR Body Mass Index 25.4 09/09/2021 9:03 AM GUN PERFORATOR documented in this encounter Discharge Diagnoses Diagnosis Unspecified abdominal pain - UNSPECIFIED ABDOMINAL PAIN Irritable bowel syndrome with diarrhea - IRRITABLE BOWEL SYNDROME WITH DIARRHEA Irritable bowel syndrome Unspecified atrial fibrillation (HCC) - UNSPECIFIED ATRIAL FIBRILLATION Essential (primary) hypertension - ESSENTIAL (PRIMARY) HYPERTENSION Unspecified essential hypertension Family history of ischemic heart disease and other diseases of the circulatory system - FAMILY HISTORY OF ISCHEMIC HEART DISEASE AND OTHER DISEASES OF THE CIRCULATORY SYSTEM Personal history of transient ischemic attack (TIA), and cerebral infarction without residual deficits - PERSONAL HISTORY OF TRANSIENT ISCHEMIC ATTACK (TIA), AND CEREBRAL INFARCTION WITHOUT RESIDUAL DEFICI Personal history of nicotine dependence - PERSONAL HISTORY OF NICOTINE DEPENDENCE Acquired absence of other specified parts of digestive tract - ACQUIRED ABSENCE OF OTHER SPECIFIED PARTS OF DIGESTIVE TRACT 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 * Irritable Bowel Syndrome ([place]) ([place]) documented in this encounter Medications at Time [...] times a day as needed 08/14/2021 09/02/2022 ondansetron (ZOFRAN) 4 mg tablet Take 1 tablet (4 mg total) by mouth every 6 (six) hours 12 tablet 09/09/2021 09/24/[address] (PROTONIX) 40 mg EC tablet Take 40 mg by mouth every 12 (twelve) hours 09/24/2021 SUMAtriptan (IMITREX) 50 mg tabletIndication s:Migraine Take 1 tablet (50 mg total) by mouth once as needed for migraine May repeat dose once in 2 hours if no relief. Do not exceed 2 doses in 24 hours. 11/13/2023 documented as of this encounter Ordered Prescriptions Prescription Sig Dispense Quantity Refills Last Filled Start Date End Date ondansetron (ZOFRAN) 4 mg tablet Take 1 tablet (4 mg total) by mouth every 6 (six) hours 12 tablet 09/09/2021 09/24/2021 documented in this encounter Discharge Disposition Disposition Code Departure Means Destination Discharge to home or self care documented in this encounter ED Notes * Cornelius Monson MD - 09/09/2021 3:16 PM CST HPI Chief Complaint Patient presents with ??? Multiple Medical Complaints 51-year-old with a history of atrial fibrillation, IBS here with the complaints of abdominal pain, nausea vomiting and diarrhea. She states that she has been having significant abdominal pain for last 2 days. She denies any fever or chills. Denies any blood in the urine or in the stool. No history of fever or chills Patient History: Patient Active Problem List Diagnosis Date Noted ??? Dysuria 08/13/2021 ??? Hypokalemia ??? TIA (transient ischemic attack) 08/11/2021 ??? Cyclic vomiting syndrome 08/09/2021 ??? Bipolar affect, depressed (CMS/HCC) (HCC) 08/09/2021 ??? Intussusception intestine (CMS/HCC) (HCC) 08/09/2021 ??? Hypertension 08/08/2021 ??? Abdominal pain, generalized 08/08/2021 ??? Atrial fibrillation (CMS/HCC) (HCC) 05/15/2020 ??? Essential tremor 10/12/2018 ??? Jerky body movements 10/12/2018 ??? Irritable bowel syndrome with diarrhea 02/23/2018 ??? Orthostatic dizziness 09/16/2016 ??? [...] Years since quittin.0 ??? Smokeless tobacco: Never Used ??? Tobacco comment: off and on Vaping Use ??? Vaping Use: Every day Substance Use Topics ??? Alcohol use: No Comment: on occasion ??? Drug use: Yes Types: Marijuana Comment: occasionally Social History Social History Narrative ??? Not on file Review of Systems Review of Systems Constitutional: Negative. HENT: Negative. Gastrointestinal: Positive for abdominal pain, diarrhea, nausea and vomiting. Genitourinary: Negative. Musculoskeletal: Negative. Skin: Negative. Neurological: Negative. Hematological: Negative. Psychiatric/Behavioral: Negative. Physical Exam ED Triage Vitals [09/09/21 0903] Temp Pulse Resp BP SpO2 36.9 ??C (98.5 ??F) 55 18 100/72 100 % Temp src Heart Rate Source Patient Position BP Location FiO2 (%) Temporal -- -- -- -- Physical Exam Vitals and nursing note reviewed. Constitutional: Appearance: Normal appearance. HENT: Head: Normocephalic and atraumatic. Eyes: Extraocular Movements: Extraocular movements intact. Pupils: Pupils are equal, round, and reactive to light. Cardiovascular: Rate and Rhythm: Normal rate and regular rhythm. Pulses: Normal pulses. Heart sounds: Normal heart sounds. Pulmonary: Effort: Pulmonary effort is normal. Breath sounds: Normal breath sounds. Abdominal: General: Abdomen is flat. Palpations: Abdomen is soft. Tenderness: There is no abdominal tenderness. Musculoskeletal: General: Normal range of motion. Cervical back: Normal range of motion. Skin: General: Skin is warm. Capillary Refill: Capillary refill takes less than 2 seconds. Neurological: General: No focal deficit present. Mental Status: She is alert and oriented to person, place, and time. CT Abdomen Pelvis W Contrast Final Result XR Abdomen Erect and or Decubitus 2 Views Final Result Results for orders placed or performed during the hospital encounter of 09/09/21 Urinalysis reflex to microscopic and culture Urine Specimen: Urine Result Value Ref Range Color, ur Straw Yellow Clarity, ur Clear Clear Specific gravity, ur 1.003 1.003 - 1.030 pH, urine 6.0 Protein, ur ql Negative Negative Glucose, ur ql Negative Negative Ketones, ur Negative Negative Bilirubin, ur Negative Negative Blood, ur Negative Negative Urobilinogen, ur <2.0 <2.0 mg/dL Nitrite, ur Negative Negative Leukocyte esterase, ur Negative Negative UA reflex comment Reflex conditions for microscopic UA and culture not met. CBC with auto differential Result Value Ref Range WBC 10.4 (H) 3.8 - 9.9 K/cumm Hgb 11.4 (L) 11.9 - 15.5 g/dL Hct 37.5 35.6 - 45.5 % Plt 310 150 - 400 K/cumm MPV 10.8 9.1 - 12.3 fL RBC 4.13 3.90 - 5.20 M/cumm MCV 90.8 81.3 - 96.4 fL MCH 27.6 27.1 - 33.3 pg MCHC 30.4 (L) 32.3 - 35.7 g/dL RDW CV 14.1 11.1 - 14.9 % RDW SD 46.5 35.7 - 48.1 fL NRBC abs 0.00 0.00 - 0.01 K/cumm Comprehensive metabolic panel Result Value Ref Range Sodium 141 135 - 145 mmol/L Potassium, pl 4.1 3.3 - 4.9 mmol/L Chloride 104 97 - 110 mmol/L CO2 29 22 - 32 mmol/L Anion gap 8 2 - 15 mmol/L BUN 4 (L) 8 - 25 mg/dL Creatinine 0.67 0.60 - 1.10 mg/dL Glucose 106 70 - 199 mg/dL Calcium 9.3 8.5 - 10.3 mg/dL Bilirubin, total 0.3 0.1 - 1.2 mg/dL Protein, pl 7.0 6.5 - 8.5 g/dL Albumin 4.6 3.5 - 5.0 g/dL Alk phos 86 40 - 130 Units/L ALT 15 7 - 45 Units/L AST 24 10 - 45 Units/L Differential, auto Result Value Ref Range Neutrophil abs 8.2 (H) 1.7 - 6.5 K/cumm Imm gran abs 0.0 0.0 - 0.1 K/cumm Lymphocyte abs 1.3 0.8 - 3.3 K/cumm Monocyte abs 0.8 0.2 - 0.8 K/cumm Eosinophil abs 0.1 0.0 - 0.5 K/cumm Basophil abs 0.0 0.0 - 0.1 K/cumm Neutrophil pct 78.0 % Imm gran pct 0.3 % Lymphocyte pct 12.5 % Monocyte pct 7.8 % Eosinophil pct 1.1 % Basophil pct 0.3 % eGFR Result Value Ref Range eGFR 104 mL/min/1.73 m2 Sepsis Lactate w/ Reflex Result Value Ref Range Sepsis Lactate 1.0 0.7 - 2.0 mmol/L [facility] MDM Final diagnoses: Abdominal pain Irritable bowel syndrome with diarrhea Cornelius Monson MD 09/09/21 1167 PERFORATOR * Emerald Gates RN - 09/09/2021 9:00 AM CST 51 yr old female presents to the ED with C/O n/v/d as well as +GUILLAUME and abdominal pain, RUQ and lowerabdomen. Pt reports she also has cramping that also goes along with it . Pt reports hx of hiatal hernia repair as well as cholecystetomy ([id number]?). Pt adds she spoke with her pcp last week who put her on iron pills. PERFORATOR PERFORATOR documented in this encounter Plan of Treatment Upcoming Encounters Date Type Department Care Team (Latest Contact Info) Description 09/07/2024 8:30 AM GUN PERFORATOR Hospital Encounter [facility] [address] [place] [phone] Forest Catherine MD [address] [place] [address] 09/07/2024 8:30 AM GUN PERFORATOR - 09/07/2024 9:00 AM GUN PERFORATOR Surgery [facility] [address] [place] [phone] Forest Catherine MD [address] [place] [address] EGD w/Endo Flip & YI placement Scheduled Procedures Name Priority Associated Diagnoses Date/Ti me ESOPHAGOGASTRODUODENOSCOPY Hiatal hernia Gastroesophageal reflux disease, unspecified whether esophagitis present 09/07/2024 8:30 AM GUN PERFORATOR documented as of this encounter Procedures Procedure Name Priority Date/Time Associated Diagnosis Comments CT ABDOMEN PELVIS W CONTRAST ED 09/09/2021 11:46 AM GUN PERFORATOR SEPSIS LACTATE WITH REFLEX STAT 09/09/2021 11:04 AM GUN PERFORATOR URINALYSIS AND REFLEX TO MICROSCOPIC AND CULTURE STAT 09/09/2021 9:58 AM GUN PERFORATOR EGFR STAT 09/09/2021 9:29 AM GUN PERFORATOR DIFFERENTIAL AUTO STAT 09/09/2021 9:2 9 AM GUN PERFORATOR CBC WITH AUTO DIFFERENTIAL STAT 09/09/2021 9:29 AM GUN PERFORATOR COMPREHENSIVE METABOLIC PANEL STAT 09/09/2021 9:29 AM GUN PERFORATOR XR ABDOMEN ERECT AND OR DECUBITS 2 VIEWS ED 09/09/2021 9:17 AM GUN PERFORATOR documented in this encounter Results * CT Abdomen Pelvis W Contrast (09/09/2021 11:46 AM GUN PERFORATOR) Anatomical Region Laterality Modality Body N/A Computed Tomogra phy 09/09/2021 11:4 9 AM GUN PERFORATOR Narrative 09/09/2021 11:54 AM GUN PERFORATOR EXAM DESCRIPTION: ?? CT ABDOMEN PELVIS W CONTRAST REASON FOR STUDY: ?? Bowel obstruction high-grade suspected ?? Abdominal pain, nausea and vomiting diarrhea for a week and a half ??Known IBS ?? TECHNIQUE: CT scan of the abdomen [...] ?? injected via ?? intravenous COMPARISON: ?? 08/22/2021 FINDINGS: LOWER CHEST: ?? Imaged lung bases appear clear. LIVER: ?? Focal decreased attenuation along the falciform ligament is noted, most compatible with focal fatty infiltration. ??Remainder of the liver demonstrates customary postcontrast enhancement. GALLBLADDER: ?? Surgically absent BILE DUCTS: ?? No intrahepatic or extrahepatic ductal dilatation. SPLEEN: ?? Normal size. ??No focal lesions. PANCREAS: ?? There is no evidence of a pancreatic mass or significant peripancreatic inflammation. ?? ADRENALS: ?? Normal. KIDNEYS/URINARY TRACT: ?? There is a 1.2 cm fluid attenuation mass within the superior pole of the right kidney, similar to the prior examination, compatible with a cyst. ??There is no evidence of hydronephrosis. ??No abnormal enhancing renal masses are seen. ?The bladder is mildly distended with fluid. ??A small focus of gas within the bladder is noted. GI: ?? The appendix originates around axial image 103, within normal limits in size. ??No significant periappendiceal inflammatory changes are noted. ??There is no evidence of small-bowel obstruction. ??No significant wall thickening, mural hyperenhancement is seen of the bowel. PERITONEUM: ?? No ascites or free air. RETROPERITONEUM: ?? No mass or adenopathy. REPRODUCTIVE: ?? No significant abnormality. VASCULATURE: ?? Aorta demonstrates normal course and caliber. ??Tiny fat containing umbilical hernia is present. MUSCULOSKELETAL: ?? Minor osteoarthritic changes of the hips are noted. ??Mild osteoarthritic changes of the spine are present. OTHER: ?? No other abnormality. IMPRESSION: ?? 1. ?? No findings of bowel obstruction. 2. ?? No findings of enteritis. 3. ?? Focus of air within the bladder, decreased over the prior examination. ?? This may result from prior instrumentation, or infection and appears improved over the prior examination. THIS IS AN ELECTRONICALLY VERIFIED FINAL REPORT 09/09/2021 11:54 AM - Electronically signed by ??Oj Echeverria M.D. AT: AT D: ??09/09/2021 11:54 AM T: ??09/09/2021 11:54 AM Report ID: [id number] Reading Location: ??[id number] Procedure Note Oj Echeverria MD - 09/09/2021 EXAM DESCRIPTION: CT ABDOMEN PELVIS W CONTRAST REASON FOR STUDY: Bowel obstruction high-grade suspected Abdominal pain, nausea and vomiting diarrhea for a week and a half KnownIBS TECHNIQUE: CT scan of the abdomen and pelvis performed with intravenousand without oral contrast using helical scanning technique with dynamic intravenous contrast injection. Reconstructed coronal and sagittal MPRimages reviewed. All images stored on PACS. Automated exposure control was used as a dose optimization technique forthis examination. CONTRAST TYPE/DOSE: 100mL of IOVERSOL 320 MG IODINE/ML INTRAVENOUSSOLUTION injected via intravenous COMPARISON: 08/22/2021 FINDINGS: LOWER CHEST: Imaged lung bases appear clear. LIVER: Focal decreased attenuation along the falciform ligament isnoted, most compatible with focal fatty infiltration. Remainder of the liver demonstrates customary postcontrast enhancement. GALLBLADDER: Surgically absent BILE DUCTS: No intrahepatic or extrahepatic ductal dilatation. SPLEEN: Normal size. No focal lesions. PANCREAS: There is no evidence of a pancreatic mass or significant peripancreatic inflammation. ADRENALS: Normal. KIDNEYS/URINARY TRACT: There is a 1.2 cm fluid attenuation mass withinthe superior pole of the right kidney, similar to the prior examination, compatible with a cyst. There is no evidence of hydronephrosis. Noabnormal enhancing renal masses are seen. The bladder is mildly distended with fluid. A small focus of gas within the bladder is noted. GI: The appendix originates around axial image 103, within normal limitsin size. No significant periappendiceal inflammatory changes are noted.There is no evidence of small-bowel obstruction. No significant wallthickening, mural hyperenhancement is seen of the bowel. PERITONEUM: No ascites or free air. RETROPERITONEUM: No mass or adenopathy. REPRODUCTIVE: No significant abnormality. VASCULATURE: Aorta demonstrates normal course and caliber. Tiny fat containing umbilical hernia is present. MUSCULOSKELETAL: Minor osteoarthritic changes of the hips are noted.Mild osteoarthritic changes of the spine are present. OTHER: No other abnormality. IMPRESSION: 1. No findings of bowel obstruction. 2. No findings of enteritis. 3. Focus of air within the bladder, decreased over the priorexamination. This may result from prior instrumentation, or infection and appearsimproved over the prior examination. THIS IS AN ELECTRONICALLY VERIFIED FINAL REPORT 09/09/2021 11:54 AM - Electronically signed by Oj Echeverria M.D. AT: AT Report ID: [id number] Reading Location: [place] [address] Cornelius Monson MD IMG CT PROCEDURES Final Result * Sepsis Lactate w/ Reflex (09/09/2021 11:04 AM GUN PERFORATOR) Pathologist [facility] Sepsis Lactate 1.0 0.7 - 2.0 mmol/L [facility] ([place]) Blood 09/09/2021 11:0 4 AM GUN PERFORATOR 09/09/2021 11:06 AM GUN PERFORATOR Cornelius Monson MD LAB BLOOD ORDERABLES Final Res ult [facility] ([place] Department of Laboratories [place] [id number] * Urinalysis reflex to microscopic and culture Urine (09/09/2021 9:58 AM GUN PERFORATOR) Color, ur Straw Yellow [facility] ([place]) Clarity, ur Clear Clear [facility] ([place]) Specific gravity, ur 1.003 1.003 - 1.030 [facility] ([place]) pH, urine 6.0 [facility] ([place]) Protein, ur ql Negative [...] culture not met. [facility] ([place]) Urine 09/09/2021 9:58 AM GUN PERFORATOR 09/09/2021 10:01 AM GUN PERFORATOR Narrative [facility] ([place]) - 09/09/2021 10:11 AM GUN PERFORATOR ?? Urine pH is affected by diet, medications, systemic acid-base disturbances, and renal tubular function. ??pH may affect urinary stone formation. ??For example, urine pH below 6.0 may help reduce the tendency for calcium phosphate stones and pH greater than 6.0 may reduce the tendency for uric acid stone formation. Source: [facility] [employer]. Last revised 09-10-2017 us Kat Biggs MD LAB MICROBIOLOGY - GENERA L ORDERABLES Final Result [facility] ([place]) 1 [facility] Department [place] [address] * eGFR (09/09/2021 9:29 AM GUN PERFORATOR) eGFR 104 mL/min/1. 73 m2 [facility] ([place]) Comment: [...] of Race in Diagnosing Kidney Disease, JASN 2021). The CKD-EPI equation should not be used for patients with unstable renal function and has not been validated in children and those over 70. Current interpretive data was last reviewed 2021. Blood 09/09/2021 9:2 9 AM GUN PERFORATOR 09/09/2021 9:34 AM GUN PERFORATOR Kat Biggs MD LAB BLOOD ORDERABLES Cristy beebe Result [facility] ([place]) [facility] Department [place] [address] * (ABNORMAL) Differential, auto (09/09/2021 9:29 AM GUN PERFORATOR) Neutrophil abs 8.2(H) 1.7 - 6.5 K/cumm [facility] ([place]) Imm gran abs 0.0 0.0 - 0.1 K/cumm [facility] ([place]) Lymphocyte abs 1.3 0.8 - 3.3 K/cumm [facility] ([place]) Monocyte abs 0.8 0.2 - 0.8 K/cumm [facility] ([place]) Eosinophil abs 0.1 0.0 - 0.5 K/cumm [facility] ([place]) Basophil abs 0.0 0.0 - 0.1 K/cumm [facility] ([place]) Neutrophil pct 78.0 % [facility] ([place]) Comment: Interpretive [...] was last revised on 2017. Lymphocyte pct 12.5 % [facility] ([place]) Comment: Interpretive Data Percent cell count reference ranges are not reported, since discordance with absolute values may lead to misinterpretation of CBC data. Current Interpretive Data was last revised on 2017. Monocyte pct 7.8 % [facility] ([place]) Comment: Interpretive Data [...] Data was last revised on 2017. Blood 09/09/2021 9:29 AM GUN PERFORATOR 09/09/2021 9:34 AM GUN PERFORATOR Kat Biggs MD LAB BLOOD ORDERABLES Cristy l Result [facility] Department [place] [address] * (ABNORMAL) Comprehensive metabolic panel (09/09/2021 9:29 AM GUN PERFORATOR) Sodium 141 135 - 145 mmol/L [facility] ([place]) Potassium, pl 4.1 3.3 - 4.9 mmol/L [facility] ([place]) Chloride 104 97 - 110 mmol/L [facility]) CO2 29 22 - 32 mmol/L [facility] ([place]) Anion gap 8 2 - 15 mmol/L [facility] BUN 4(L) 8 - 25 mg/dL [facility]) Creatinine 0.67 0.60 - 1.10 mg/dL [facility] ([place]) Glucose 106 70 - 199 mg/dL [facility]) Comment: Interpretive Data Fasting glucose [...] interpretive data was last revised 2017. Calcium 9.3 8.5 - 10.3 mg/dL [facility] ([place]) [...] - 45 Units/L [facility] ([place]) Blood 09/09/2021 9:29 AM GUN PERFORATOR 09/09/2021 9:34 AM GUN PERFORATOR us Kat Biggs MD LAB BLOOD ORDERABLES Cristy l Result [facility] Department [place] [address] * (ABNORMAL) CBC with auto differential (09/09/2021 9:29 AM GUN PERFORATOR) WBC 10.4(H) 3.8 - 9.9 K/cumm [facility] ([place]) Hgb 11.4(L) 11.9 - 15.5 g/dL [facility] ([place]) Hct 37.5 35.6 - 45.5 % [facility] ([place]) Plt 310 150 - 400 K/cumm [facility] ([place]) MPV 10.8 9.1 - 12.3 fL [facility] ([place]) RBC 4.13 3.90 - 5.20 M/cumm [facility] ([place]) MCV 90.8 81.3 - 96.4 fL [facility] ([place]) MCH 27.6 27.1 - 33.3 pg [facility] ([place]) MCHC 30.4(L) 32.3 - 35.7 g/dL [facility] ([place]) RDW CV 14.1 11.1 - 14.9 % [facility] ([place]) RDW SD 46.5 35.7 - 48.1 fL [facility] ([place]) NRBC abs 0.00 0.00 - 0.01 K/cumm [facility] ([place]) Blood (Blood, Venous) 09/09/2021 9:29 AM GUN PERFORATOR 09/09/2021 9:34 AM GUN PERFORATOR us Kat Biggs MD LAB BLOOD ORDERABLES Cristy beebe Result [facility] ([place]) [facility] [place] [address] * XR Abdomen Erect and or Decubitus 2 Views (09/09/2021 9:17 AM GUN PERFORATOR) Anatomical Region Laterality Modality Body, Abdomen N/A Computed Radiogr aphy 09/09/2021 9:20 AM GUN PERFORATOR Narrative 09/09/2021 9:22 AM GUN PERFORATOR EXAM DESCRIPTION: ?? XR ABDOMEN ERECT AND OR DECUBITUS 2 VIEWS REASON FOR STUDY: ?? Abdominal Pain ?? C/O n/v/d as well as +GUILLAUME and abdominal pain, RUQ and lower abdomen. Pt reports she also has cramping that also goes along with it . Pt reports hx of hiatal hernia repair as well as cholecystetomy ([id number]?). Pt has history of IBS. ?? TECHNIQUE: [...] AM T: ??09/09/2021 9:22 AM Report ID: [id number] Reading Location: ??[id number] Procedure Note Jamarcus Luis Belle, DO - 09/09/2021 EXAM DESCRIPTION: XR ABDOMEN ERECT AND OR DECUBITUS 2 VIEWS REASON FOR STUDY: Abdominal Pain C/O n/v/d as well as +GUILLAUME and abdominal pain, RUQ and lower abdomen. Ptreports she also has cramping that also goes along with it . Pt reports hx ofhiatal hernia repair as well as cholecystetomy ([id number]?). Pt has history ofIBS. TECHNIQUE: Supine and [...] Luis Ricketts D.O. PS: PS Report ID: [id number] Reading Location: [id number] us Kat Biggs MD IMG XR PROCEDURES Final R esult documented in this encounter Visit Diagnoses Diagnosis Abdominal pain- Primary Abdominal pain, unspecified site Irritable bowel syndrome with diarrhea Irritable bowel syndrome Hiatal hernia Diaphragmatic hernia without mention of obstruction or gangrene Gastroesophageal reflux disease, unspecified whether esophagitis present documented in this encounter Administered Medications Inactive Administered Medications - up to 3 most recent administrations Medication Order MAR Action Action Date Dose Rate Site ioversoL (OPTIRAY 320) injection 100 mL 100 mL, intravenous, Once in imaging, contrast, Starting on Thu09/09/21 at 1129, For 1 dose Contrast Given 09/09/2021 11:42 AM GUN PERFORATOR 100 mL sodium chloride 0.9% bolus 1,000 mL 1,000 mL, intravenous, at 1,000 mL/hr, Administer over 1 Hours, Once, On Thu09/09/21 at 1103, For 1 dose New Bag 09/09/2021 11:12 AM GUN PERFORATOR 1,000 mL 1000 mL/hr documented in this encounter Active and Recently Administered Medications Times are shown in GUN PERFORATOR. Scheduled Medication Order 09/07/2021 09/08/2021 09/09/2021 sodium chloride 0.9% bolus 1,000 mL (COMPLETED) 1,000 mL, intravenous, at 1,000 mL/hr, Administer over 1 Hours, Once, On Thu09/09/21 at 1103, For 1 dose 1112 (New Bag - Prov ider: Kassidy Peraza, RN)[phone] (Stopped - Provider: Kassidy Peraza, KIET) PRN Medication Order 09/07/2021 09/08/2021 09/09/2021 ioversoL (OPTIRAY 320) injection 100 mL (COMPLETED) 100 mL, intravenous, Once in imaging, contrast, Starting on Thu09/09/21 at 1129, For 1 dose 1142 (Contrast Given - Provider: Naz Quinteros, RT - Comment: /23) documented in this encounter Care Teams Welding [employer] Relationship Specialty Start Date End Date Parmjit Dai MD PCP - General 12/31/20 Mere Landa NP Nurse Practitioner 02/07/20 Tico Burton MD Surgeon General Surgery 08/09/21 documented as of this encounter
--- OUTSIDE RECORDS SUMMARY | 2024-08-16 04:35 | XMS_ITS | Encounter Summary ---
Author Organization [facility] Healthcare Address [address] [place] [address] Care Team Providers Care Biometrics Instructor Name Role Phone Mere Landa NP Unavailable [phone] Parmjit Dai MD Primary Care Provider [phone] Encounter Details Date Type Department Care Team (Latest Contact Info) Description 05/28/2021 7:09 PM CDT - 05/28/2021 11:59 PM CDT Hospital Encounter [facility] [...] file Legal Sex Female 10:06 AM CLINICAL NUTRITION MANAGER Gender Identity Female 06/17/2024 7:02 AM CDT Sexual Orientation Not on file documented as of this encounter Medications at Time of Discharge busPIRone (BUSPAR) 15 mg tabletIndication s:Generalized Anxiety Disorder Take 15 mg by mouth 2 (two) times a day. 08/09/2021 calcium carbonate-mag hydroxid 400-135 mg/5 mL suspension Take by mouth 4 (four) times a day. 08/09/2021 ciprofloxacin (CIPRO) 500 mg tablet 05/21/2018 08/09/2021 clonazePAM (KlonoPIN) 0.5 mg tabletIndication s:Panic Disorder Take 0.5 mg by mouth as needed for anxiety. 08/09/2021 desvenlafaxine 50 mg tablet extended release 24hrIndications: major depressive disorder Take 50 mg by mouth daily. 08/09/2021 divalproex ER (DEPAKOTE ER) 500 mg 24 hr tabletIndication s:Bipolar Disorder Take 500 mg by mouth daily. 08/09/2021 naproxen (ANAPROX,ALEVE) 220 mg tablet Take by mouth as needed for pain. 08/09/2021 naproxen-diphenh ydramine 220-25 mg tablet Take by mouth. 08/09/2021 ondansetron (ZOFRAN) 4 mg tablet Take 1 tablet (4 mg total) by mouth every 6 (six) hours 12 tablet 01/25/2020 08/13/2021 primidone (MYSOLINE) 50 mg tabletIndication s:Essential tremor 1/4 tab po qhs 1 week, 1/2 tab qhs 1 week, 1/4 tab qam & 1/2 tab qhs 1 week, 1/2 tab bid 1 w, 1/2 tab qam, 1 tab qhs1 week, then 1 tab bid 120 tablet 3 10/12/2018 08/09/2021 SUMAtriptan (IMITREX) 50 mg tabletIndication s:Migraine Take 1 tablet (50 mg total) by mouth once as needed for migraine May repeat dose once in 2 hours if no relief. Do not exceed 2 doses in 24 hours. 11/13/2023 venlafaxine XR (EFFEXOR-XR) 150 mg 24 hr capsule TK 1 C PO D 0 05/13/2018 021 documented as of this encounter Discharge Disposition Disposition Code Departure Means Destination Discharge to home or self care documented in this encounter Plan of Treatment Upcoming Encounters Date Type Department Care Team (Latest Contact Info) Description 09/07/2024 8:30 AM CLINICAL NUTRITION MANAGER Hospital Encounter [facility] [address] [place] [id number] Forest Catherine MD [address] [place] [address] 09/07/2024 8:30 AM CLINICAL NUTRITION MANAGER - 09/07/2024 9:00 AM CLINICAL NUTRITION MANAGER Surgery [facility] [address] [place] [address] Forest Catherine MD [address] [place] [address] EGD w/Endo Flip & YI placement Scheduled Procedures Name Priority Associated Diagnoses Date/Ti me ESOPHAGOGASTRODUODENOSCOPY Hiatal hernia Gastroesophageal reflux disease, unspecified whether esophagitis present 09/07/2024 8:30 AM CLINICAL NUTRITION MANAGER documented as of this encounter Visit Diagnoses Not on filedocumented in this encounter Care Teams Biometrics Instructor Relationship Specialty Start Date End Date Parmjit Dai MD PCP - General 12/31/20 Mere Landa NP Nurse Practitioner 02/07/20 documented as of this encounter
--- OUTSIDE RECORDS SUMMARY | 2024-08-16 04:35 | XMS_ITS | Encounter Summary ---
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 Name Role Phone Mere Landa NP Unavailable [phone] Parmjit Dai MD Primary Care Provider [phone] Tico Burton MD Unavailable [phone] Reason for Visit * Reason Comments Abdominal Pain Encounter Details Date Type Department Care Team (Late st Contact Info) Description 08/08/2021 8:21 PM KILN FIRER - 08/10/2021 3:00 PM KILN FIRER Emergency [facility] Surgery Care [address] [place] [address] Juice Pineda MD [address] [facility] [place] [address] Roxy Barros MD [address] [facility] [place] [address] Amelia Riley MD [address] [facility] [place] [address] [place] Huertas MD [address] [place] [address] Abdominal pain, generalized (Primary Dx); Non-intractable vomiting, presence of nausea not specified, unspecified vomiting type; Diarrhea, unspecified type; Small bowel intussusception (CMS/HCC) (HCC) Discharge Disposition: Discharge to home or self [...] on file Legal Sex Female 10:06 AM KILN FIRER Gender Identity Female 06/17/2024 7:02 AM CDT Sexual Orientation Not on file documented as of this encounter Last Filed Vital Signs Vital Sign Reading Time Taken Comments Blood Pressure 112/65 08/10/2021 7:40 AM KILN FIRER Pulse 84 08/10/2021 7:40 AM KILN FIRER Temperature 36.1 ??C (97 ??F) 08/10/2021 7:40 AM KILN FIRER Respiratory Rate 16 08/10/2021 7:40 AM KILN FIRER Oxygen Saturation 100% 08/10/2021 7:40 AM KILN FIRER Inhaled Oxygen Concentration - - Weight 67.7 kg (149 lb 4.8 oz) 08/09/2021 1:00 A M KILN FIRER Height 162.6 cm (5' 4 ) 08/09/2021 1:00 AM KILN FIRER Body Mass Index 25.63 08/09/2021 1:00 AM KILN FIRER documented in this encounter Discharge Diagnoses Diagnosis Intussusception (CMS/HCC) (HCC) - INTUSSUSCEPTION Intussusception Irritable bowel syndrome with diarrhea - IRRITABLE BOWEL SYNDROME WITH DIARRHEA Irritable bowel syndrome Essential tremor - ESSENTIAL TREMOR Essential (primary) hypertension - ESSENTIAL (PRIMARY) HYPERTENSION Unspecified essential hypertension Unspecified atrial fibrillation (HCC) - UNSPECIFIED ATRIAL FIBRILLATION Migraine, unspecified, not intractable, without status migrainosus - MIGRAINE, UNSPECIFIED, NOT INTRACTABLE, WITHOUT STATUS MIGRAINOSUS Cyclical vomiting syndrome unrelated to migraine - CYCLICAL VOMITING SYNDROME UNRELATED TO MIGRAINE Bipolar disorder, unspecified (HCC) - BIPOLAR DISORDER, UNSPECIFIED Bipolar disorder, unspecified Anxiety disorder, unspecified - ANXIETY DISORDER, UNSPECIFIED Personal history of nicotine dependence - PERSONAL HISTORY OF NICOTINE DEPENDENCE documented in this encounter Discharge Summaries * Joshua Pearson MD - 08/10/2021 1:30 PM CST Inpatient Discharge Summary BRIEF OVERVIEW Admitting Provider: [place] MD Discharge Provider: Amelia Riley MD Primary Care Physician at Discharge: Parmjit Dai MD [phone] Admission Date: 08/08/2021 Discharge Date: 08/10/2021 Date of Service: 08/10/2021 Primary Discharge Diagnosis: Intussusception intestine (CMS/HCC) (HCC) Secondary Discharge Diagnosis: Principal Problem: Intussusception intestine (CMS/HCC) (HCC) Active Problems: Irritable bowel syndrome with diarrhea Essential tremor Hypertension Atrial fibrillation (CMS/HCC) (HCC) Migraine headache Abdominal pain, generalized Cyclic vomiting syndrome Bipolar affect, depressed (CMS/HCC) (HCC) DETAILS OF HOSPITAL STAY Presenting Problem/History of Present Illness: Intussusception intestine (CMS/HCC) (FORMERLY [facility]) Hospital Course: Sarahy Gill is a 51 y.o. y/o female with PMH bipolar type 2, cyclic vomiting syndrome, IBS, ,headache tension, migraine. Complains of generalized abdominal pain, onset 4 days, nausea dry heaving 3-4, vomiting, chest pain15 episodes of diarrhea since last night. [place] ED yesterday morning: Discharged receiving Haldol, Benadryl IV fluid for cyclic vomiting. No imaging, felt better on discharge became the [facility] when symptoms came back. CT scan showed resolution of intussusception. Patient receiving Zofran, Reglan, IV fluid. Slight leukocytosis, no fever, no chills, no night sweats. Urinalysis negative. EKG showed sinus rhythm with supraventricular beats. ?? This afternoon patient states that she is feeling much better, stating that her abdominal pain is gone. Patient still having nausea without vomiting. Intussusception intestine (CMS/HCC) (HCC) 08/08/2021 CT abdomen/pelvis with contrast: Possible cystitis, short segmental jejunal to jejunal intussusception measuring 3.5 cm in left upper quadrant 08/09/2021 CT abdomen/pelvis with contrast: Intussusception no longer visualized Per EMR review: Patient has had 4 CT exam, 4 EGDs, 2 colonoscopys. Has been told colitis basis of CT, given diagnoses IBD-d Encourage p.o. fluid intake Patient tolerating food have advised gradual progression of diet on discharge Reglan t.i.d. on discharge Zofran p.r.n. for nausea Patient will need follow-up with her GI doctor for further workup and monitoring. Will continue to monitor and discharged home tomorrow ?? Abdominal pain, generalized Patient has ongoing chronic abdominal pain issues being evaluated by her GI doc Dr. Fountain See above ?? Cyclic vomiting syndrome Patient has a history of IBS with cyclic vomiting syndrome Patient smokes prescription strength marijuana daily: Have advised cutting back as can cause cyclicvomiting. Zofran p.r.n. Reglan t.i.d. ?? Irritable bowel syndrome with diarrhea Patient on Bentyl Hypertension Have reviewed 24 hour blood pressures and patient is stable Home Metoprolol with hold parameters as patient has AFib ?? Migraine headache Patient not complaining of headache or migraines at this time Sumatriptan on hold resume on discharge ?? Atrial fibrillation ([facility]/HCC) (FORMERLY [facility]) No acute events since admission Patient on Eliquis Metoprolol for rate control with hold parameters ?? Essential tremor Patient reports after waking up had increase in the essential tremor Patient on beta-isaias No other focal deficit LFTs, electrolytes within normal range Will continue to monitor ?? Bipolar affect, depressed (CMS/HCC) (FORMERLY [facility]) Per patient has a history of bipolar depressive type Stable at this time Not currently on any medication Patient denies any suicidal homicidal ideation Active Issues Requiring Follow-up: Follow-up with GI for further workup of intussusception, nausea and vomiting Test Results Pending at Discharge: None Operative Procedures Performed: None Pertinent Test Results: ECG 12 lead Result Date: 08/09/2021 Narrative: Vent Rate: 65 bpm RR Interval: 916 msec TN Interval: 133 msec QRS Duration: 81 msec QT Interval: 425 msec QTC Interval: 437 msec P-R-T [place]: 142 - 173 - 165 degrees SINUS RHYTHM WITH FREQUENT SUPRAVENTRICULAR PREMATURE COMPLEXES ARM LEADS REVERSED [INVERTED P AND QRS IN I] ABNORMAL RHYTHM ECG Electronically Signed By: Dr Ryan [place] CT Abdomen Pelvis W Contrast Result Date: 08/09/2021 Narrative: EXAM DESCRIPTION: CT ABDOMEN PELVIS W CONTRAST REASON FOR STUDY: Abdominal pain, acute, nonlocalized c/o has had abd pain n/v and unable to keep anything down Prior exam done on 08/08/21 at 9:35 pm For evaluation of small bowel intussusception TECHNIQUE: CT scan of the abdomen and pelvisperformed with intravenous and without oral contrast using helical scanning technique with dynamic intravenous contrast injection. Reconstructed coronal and sagittal MPR images reviewed. All images stored on PACS. Automated exposure control was used as a dose optimization technique for this examination. CONTRAST TYPE/DOSE: 100mL of IOVERSOL 320 MG IODINE/ML INTRAVENOUS SYRINGE injected via intravenous COMPARISON: 08/08/2021 FINDINGS: LOWER CHEST: Lung bases are clear. Heart size normal. No effusion. LIVER/BILIARY: Liver unremarkable. Biliary tree normal in caliber. GALLBLADDER: Absent. SPLEEN: Normal. PANCREAS: Normal. ADRENAL GLANDS: Normal. KIDNEYS/URINARY TRACT: Right calyceal diverticulum. Contrast in the collecting systems. GI: Stomach and small bowel appear normal. Colon and appendix unremarkable. OTHER ABDOMINAL/PELVIS: Major vascular structures are grossly patent and normal in caliber. No enlarged lymph node or free fluid. MSK: Mild facet arthropathy. BODY WALL: Normal. IMPRESSION: Intussusception has resolved. No acute abnormality identified. THIS IS AN ELECTRONICALLY VERIFIED FINAL REPORT 08/09/2021 5:39 AM - Electronically signed by Boone Hernandez M.D. AR: GRAEME Report ID: [id number] Reading Location: [id number] CT Abdomen Pelvis W Contrast Result Date: 08/08/2021 Narrative: EXAM DESCRIPTION: CT ABDOMEN PELVIS W CONTRAST REASON FOR STUDY: Abdominal pain, acute, nonlocalized h/o A-fib on Eliquis, cyclic vomiting, IBS, anxiety, and depression, s/p cholecystectomy and hernia repair, generalized abdominal pain for 1 week, worsening for 4 days. Associated symptoms include nausea, vomiting, and chest pain, as well as 15 episodes of diarrhea since last night TECHNIQUE: CT scan of the abdomen and pelvis performed with intravenous and without oral contrast usinghelical scanning technique with dynamic intravenous contrast injection. Reconstructed coronal and sagittal MPR images reviewed. All images stored on PACS. Automated exposure control was used as a dose optimization technique for this examination. CONTRAST TYPE/DOSE: 100 mL Optiray 320 COMPARISON: 01/25/2020. FINDINGS: LOWER CHEST: No significant abnormality is visualized. LIVER: Diffuse hepatic steatosis. Normal size. Small calcification of the lateral right hepatic lobe, likely sequela of healed granulomatous disease. GALLBLADDER: Surgically absent. BILE DUCTS: No intrahepatic or extrahepatic ductal dilatation. PANCREAS: Enhances normally. No peripancreatic inflammatory change. SPLEEN: Enhances normally. Normal size. Small splenule located anteriorly. ADRENALS: Normal. KIDNEYS/URINARY TRACT: No visualized stones. No hydronephrosis or hydroureter. Symmetric enhancement. Small bilateral renal cysts, unchanged from prior. Persistent lobulation of both kidneys, a normal anatomic variant. Small focus of gas within the anti dependent urinary bladder, which also appears mildly thick-walled. In the absence of any recent instrumentation, findings are suspicious for cystitis. Correlation with urinalysis recommended. REPRODUCTIVE: No suspicious abnormality. GI: No evidence of acute gastrointestinal inflammation or obstruction. Short segment jejunal-jejunal intussusception within the left upper quadrant of the abdomen, measuring no greater than 3.5 cm, likely a transient phenomenon. Normal appendix. PERITONEUM: No intraperitoneal free fluid or free air. Tiny fat containing umbilical hernia. RETROPERITONEUM: No suspicious abdominal or pelvic lymphadenopathy. VASCULATURE: No abdominal aortic aneurysm. Mild atheromatous disease of the abdominal aorta and branch vessels. MUSCULO SKELETAL: No suspicious abnormality. OTHER: No other abnormality. IMPRESSION: 1. Possible cystitis.Correlation with urinalysis recommended. 2. Short segment jejunal-jejunal intussusception in the left upper quadrant of the abdomen measures 3.5 cm. Small bowel small bowel intussusceptions measuringless than 5 cm in length are typically a transient phenomenon. 3. Diffuse hepatic steatosis. 4. Postsurgical changes of cholecystectomy. THIS IS AN ELECTRONICALLY VERIFIED FINAL REPORT 08/08/2021 10:20 PM - Electronically signed by Rip De La Vega M.D. RT: RT T: 08/08/2021 10:20 PM Report ID: [id number] Reading Location: [place] [address] Discharge Details Physical Exam at Discharge: Discharge Condition: improved and stable. Pulse: 84 Resp: 16 BP: 112/65 Temp: 36.1 ??C (97 ??F) Pertinent Exam Findings at Discharge: General: Awake and alert. No acute distress. Eyes: EOMI, CANDIDA, sclerae non icteric. Neck: supple, no lymphadenopathy, no gross carotid bruits appreciated Pharynx: No gross oral lesion, tongue midline, mucous membranes moist. CV: Heart regular rate and rhythm. No murmur. Respiratory: Lungs clear to auscultation bilaterally, no rales, rhonchi or wheezes, good inspiratory effort. GI: Abdomen with bowel sounds present, soft, nontender, nondistended, no hepatomegaly. : Extremities: No gross edema, pedal artery pulses present bilaterally. Neurologic: Muscular Strength upper and lower extremities 5/5 bilaterally, DTRs 2/4 biceps and knees, sensory intact, cranial nerves 2-12 within normal limits, good coordination, normal speech. Oriented x 3. Musculoskeletal: No gross joint erythema, edema, tenderness. Skin: No rash or lesion seen. Psychiatric: Appropriate mood and affect. Discharge Disposition: Discharge to home or self care Code Status at Discharge: Full Code Discharge Instructions: patient will need to follow-up with her GI doctor for further workup and evaluation of ongoing IBS-d, cyclic vomiting syndrome, intussusception. Call to make an appointment. Discharge Medications: Your medication list START taking these medications metoclopramide 10 mg tablet Take 1 tablet (10 mg total) by mouth 3 (three) times a day before meals Commonly known as: REGLAN CONTINUE taking these medications apixaban 5 mg tablet Commonly known as: ELIQUIS dicyclomine 10 mg capsule Commonly known as: BENTYL flecainide 50 mg tablet Commonly known as: TAMBOCOR metoprolol XL 25 mg extended release tablet Commonly known as: TOPROL-XL ondansetron 4 mg tablet Take 1 tablet (4 mg total) by mouth every 6 (six) hours Commonly known as: ZOFRAN pantoprazole DR 40 mg EC tablet Commonly known as: PROTONIX SUMAtriptan 50 mg tablet Commonly known as: IMITREX Outpatient Follow-Up: No future appointments. TOTAL TIME SPENT ON DAY OF DISCHARGE 35 MINUTES VTyler Alber Pearson MD Family Medicine PGY-1 [facility] 08/10/2021 1:30 PM Cosigned by Metias, Cisneros, MD at 08/10/2021 2:17 PM KILN FIRER FIRER FIRER Associated attestation - Amelia Riley MD - 08/10/2021 2:17 PM KILN FIRER I personally saw and examined the patient on 08/10/2021 and discussed the case with the resident. Ihave reviewed the resident's note and agree with the content and plan as written. Additional information as noted below. 51yo F with PMHx of bipolar 2 disorder, pAFib, cannabis use disorder, cyclical vomiting syndrome, IBS here for abdominal pain, nausea, vomiting. Found to have intussusception. Repeat CT scan 7hr later with resolution of symptoms. Diet was slowly advanced. On day of discharge, patient was able to tolerate her regular diet. Nausea was controlled with Zofran and Reglan. Will discharge with plan to follow-up with GI as outpatient, scheduled Reglan 10 mg TID and Zofran as needed. Rest of plan per resident note Amelia Riley MD Family Medicine Hospitalist Attending Physician - JADYN [place] [facility] documented in this encounter Discharge Instructions * Discharge Instructions* Joshua Pearson MD - 08/10/2021 1:21 PM KILN FIRER Abdominal Pain WHAT YOU NEED TO KNOW: Abdominal pain can be dull, achy, or sharp. You may have pain in one area of your abdomen, or in your entire abdomen. Your pain may be caused by a condition such as constipation, food sensitivity or poisoning, infection, or a blockage. Abdominal pain can also be from a hernia, appendicitis, or an ulcer. Liver, gallbladder, or kidney conditions can also cause abdominal pain. The cause of your abdominal pain may be unknown. DISCHARGE INSTRUCTIONS: Return to the emergency department if: ?? You have new chest pain or shortness of breath. ?? You have pulsing pain in your upper abdomen or lower back that suddenly becomes constant. ?? Your pain is in the right lower abdominal area and worsens with movement. ?? You have a fever over 100.4??F (38??C) or shaking chills. ?? You are vomiting and cannot keep food or liquids down. ?? Your pain does not improve or gets worse over the next 8 to 12 hours. ?? You see blood in your vomit or bowel movements, or they look black and tarry. ?? Your skin or the whites of your eyes turn yellow. ?? You are a woman and have a large amount of vaginal bleeding that is not your monthly period. Contact your healthcare provider if: ?? You have pain in your lower back. ?? You are a man and have pain in your testicles. ?? You have pain when you urinate. ?? You have questions or concerns about your condition or care. Follow up with your healthcare provider within 24 hours or as directed: Write down your questions so you remember to ask them during your visits. Medicines: ?? Medicines may be given to calm your stomach and prevent vomiting or to decrease pain. Ask how totake pain medicine safely. ?? Take your medicine as directed. Contact your healthcare provider if you think your medicine is not helping or if you have side effects. Tell him of her if you are allergic to any medicine. Keep a list of the medicines, vitamins, and herbs you take. Include the amounts, and when and why you take them. Bring the list or the pill bottles to follow-up visits. Carry your medicine list with you in case of an emergency. ?? 2017 [employer] Information is for End User's use only and may not be sold, redistributed or otherwise used for commercial purposes. All illustrations and images included in CareNotes?? are the copyrighted property of [employer] or [employer]. The above information is an surgical aides teacher only. It is not intended as medical advice for individual conditions or treatments. Talk to your doctor, nurse or pharmacist before following any medical regimen to see if it is safe and effective for you. FIRER * Discharge Instr - Other Orders* Brittny Jay RN - 08/10/2021 1:49 PM KILN FIRER THANK YOU for choosing our team to provide your health care. Your HEALTH AND SAFETY are important to us. We hope you feel your care on SCU was ALWAYS EXCELLENT! Please call [facility] at [phone] if you have any questions regarding your care. Wishing you continued improvement during your recovery. Your Surgical Care Unit Team Bernice Carranza Dana, Denise, Nancy, Peggy, Alexandra Hale Stacy, Debbie, Sheila, Lamika, Judy, Lindsey, Suzie, Nik, Jocelyn, Rochelle, Simona, Cathy, Emily. FIRER * Attachments The following attachments cannot be sent through Care Everywhere. * Irritable Bowel Syndrome (Discharge Care) ([place]) * Irritable Bowel Syndrome (General Information) ([place]an) * Abdominal Pain (AfterCare(R) Instructions(ER/ED)) ([place]) * Metoclopramide (By mouth) ([place]) documented in this encounter Medications at Time of Discharge apixaban (ELIQUIS) 5 mg tablet Take 1 tablet (5 mg total) by mouth 2 (two) times a day metoprolol XL (TOPROL-XL) 25 mg extended release tablet Take 1 tablet (25 mg total) by mouth daily ondansetron (ZOFRAN) 4 mg tablet Take 1 tablet (4 mg total) by mouth every 8 (eight) hours as needed for nausea or vomiting 30 tablet 08/10/2021 09/09/2021 dicyclomine (BENTYL) 10 mg capsule Take 20 mg by mouth 2 (two) times a day 09/24/2021 flecainide (TAMBOCOR) 50 mg tablet Take 50 mg by mouth 2 (two) times a day 09/02/2022 metoclopramide (REGLAN) 10 mg tabletIndication s:gastroesophage al reflux disease Take 1 tablet (10 mg total) by mouth 3 (three) times a day before meals 90 tablet 08/10/2021 08/13/2021 ondansetron (ZOFRAN) 4 mg tablet Take 1 tablet (4 mg total) by mouth every 6 (six) hours 12 tablet 01/25/2020 08/13/[address] (PROTONIX) 40 mg EC tablet [...] nausea or vomiting 30 tablet 08/10/2021 2 metoclopramide (REGLAN) 10 mg tabletIndications: gastroesophageal reflux disease Take 1 tablet (10 mg total) by mouth 3 (three) times a day before meals 90 tablet 08/10/2021 1 documented in this encounter Discharge Disposition Disposition Code Departure Means Destination Discharge to home or self care documented in this encounter Progress Notes * Christa Abdullahi RN - 08/09/2021 2:29 PM CST DAREK Initial Assessment Interview Note Information Obtained From: Patient (08/09/211427) Admission Source: home Impression: abdominal pain Plan Includes: evaluation Primary Source of Transportation: Health Insurance Coverage: [facility] [employer] Prescription Coverage: yes Pharmacy: [facility] Primary Care Provider: Parmjit Dai MD Prior to Admission: Primary Caregiver: Self Support System: Spouse/Significant Other Home Care Services: No Durable Medical Equipment: None Living Arrangements: Spouse/significant other Type of Residence: Private residence Steps in home? : No steps inside or outside,Yes, Outside of home Number of steps outside:: 3 steps (08/09/21102) Potential discharge needs include: Patient expects to be Discharged to: Private residence, (08/09/211427) Additional Information: Patient lives at home with her . She is independent with mobility and adls. No devices used for mobility. Able to drive. Doesn't work. Discharge plan will be to return to home and her will provide transportation. No needs at this time. OBS booklet given and RIVERA letter signed. Will continue to follow. Patient's Identified Problem/Goal Problem: Ensure acute medical needs are met and that patient has a safe discharge plan. Goal: Secure a discharge plan that patient/family are agreeable with and ensure patient has continuum of care. Case management will follow for discharge planning and send referrals as needed. Based on a comprehensive family assessment, assistance with instrumental activities of daily livingafter discharge will be provided by patient. Christa Abdullahi RN FIRER * Monique Luna RD - 08/09/2021 2:00 PM CST Nutrition Assessment Reason for Assessment: Screened at Nutrition Risk and Initial Nutrition Assessment Encounter Date: 08/09/21 2:00 PM Nutrition Assessment and Plan: Patient is a 51 y.o. female. Admit Dx: ABDOMINAL PAIN, GENERALIZED (PRIMARY ENCOUNTER DIAGNOSIS) NON-INTRACTABLE VOMITING, PRESENCE OF NAUSEA NOT SPECIFIED, UNSPECIFIED VOMITING TYPE DIARRHEA, UNSPECIFIED TYPE SMALL BOWEL INTUSSUSCEPTION (CMS/HCC) (HCC). Admitted on 08/08/2021, current LOS is 0 days. Pediatric Nutrition Screen What diet do you follow at home?: [place]/Heart Healthy Adult Malnutrition Scoring Tool (MST) What diet do you follow at home?: [place]/Heart Healthy Have You Recently Lost Weight Without Trying?: No Have you been eating poorly because of a decreased appetite?: Yes Malnutrition Screening Tool (MST) Score: 1 Current diet order: Adult Diet Regular Pt intake na. PO intakes: na ASSESSMENT: Nutrition Diagnosis 1: Inadequate oral intake Related to: Nausea,Vomiting Evidenced by: Physical finding ?? Interventions: [place] diet preferences within the limits of nutrition care order ?? Monitoring and Evaluation: Diet advancement,Discharge plans,Labs,PO intake ?? Goals: Advance to oral intake as medically able,Adequate nutrition to meet estimated needs by next assessment ? Wt Readings from Last 10 Encounters: 08/09/21 67.7 kg (149 lb 4.8 oz) 01/25/20 62.1 kg (137 lb) 10/12/18 56.5 kg (124 lb 9.6 oz) 05/21/18 59.8 kg (131 lb 12.8 oz) 02/23/18 65.2 kg (143 lb 12.8 oz) Estimated needs: ?? Total Kcal/kg Estimated Needs : 1693.05 based on Kcal/k. Type of Weight Used for Estimated Kcals: Current ?? Total Protein Estimated Needs (gm): 54.18 Protein Needs Based on g/k.8 Type of Weight Used for Estimated Protein : Current. ?? Total Fluid Estimated Needs: 2030.66 Fluid Needs Based on : 30 ml/kg. Objective Anthropometrics Weight: 67.7 kg (149 lb 4.8 oz) Admission Weight : 65.8 kg Weight Change: 1.95 kg (4.30 lbs) IBW/kg (Calculated) : 54.4 kg Height: 162.6 cm (5' 4 ) Weight in (lb) to have BMI = 25: 145.3 BMI (Calculated): 25.6 3 Day I/O Summary 08/07 1900 - 08/09 0659 In: 277 [I.V.:277] Out: - Temp: 36.3 ??C (97.4 ??F) Past Medical History: Diagnosis Date ??? Anxiety ??? Bipolar affect, depressed (CMS/HCC) (HCC) ??? Cyclic vomiting syndrome ??? Depression ??? Headache, tension-type ??? Migraine ??? Weight loss Medications and Lab Review: Scheduled Meds: Continuous Infusions: Sodium Date Value Ref Range Status 08/09/2021 141 135 - 145 mmol/L Final Potassium, pl Date Value Ref Range Status 08/09/2021 3.4 3.3 - 4.9 mmol/L Final BUN Date Value Ref Range Status 08/09/2021 9 8 - 25 mg/dL Final Creatinine Date Value Ref Range Status 08/09/2021 0.52 (L) 0.60 - 1.10 mg/dL Final Albumin Date Value Ref Range Status 08/08/2021 4.5 3.5 - 5.0 g/dL Final Calcium Date Value Ref Range Status 08/09/2021 8.9 8.5 - 10.3 mg/dL Final No results found for: HGBA1C POC Glucose: na(08/09) Nursing Assessment: Bowel Sounds (All Quadrants): Hypoactive Hansel Scale Score: 20 Skin Integrity: Abrasion Nutrition Follow-Up : 08/13/[address],LDN FIRER documented in this encounter H&P Notes * Joshua Pearson MD - 08/09/2021 6:19 PM CST [facility] Adult Hospitalist Service History and Physical Patient Name: Sarahy Gill Patient : 1970 Age/Sex: 51 y.o. female Room/Bed: [id number]/[place] [address] Admission Date/Time: 08/08/2021 8:21 PM Date: 08/09/2021 Time: 6:36 PM Primary Care Physician: Parmjit Dai MD PCP Office Location: [address] [place] [address] [place] [id number] PCP Date and Time of Service of H&P: Chief Complaint: Abdominal discomfort HPI: Sarahy Gill is a 51 y.o. y/o female with PMH bipolar type 2, cyclic vomiting syndrome, IBS, ,headache tension, migraine. Complains of generalized abdominal pain, onset 4 days, nausea dry heaving 3-4, vomiting, chest pain15 episodes of diarrhea since last night. [place] ED yesterday morning: Discharged receiving Haldol, Benadryl IV fluid for cyclic vomiting. No imaging, felt better on discharge became the [facility] when symptoms came back. CT scan showed resolution of intussusception. Patient receiving Zofran, Reglan, IV fluid. Slight leukocytosis, no fever, no chills, no night sweats. Urinalysis negative. EKG showed sinus rhythm with supraventricular beats. This afternoon patient states that she is feeling much better after eating and drinking fluid. Returned back to room this evening patient complaining of nausea despite receiving Zofran and Reglan. Also complains of essential tremor, which appears to be exaggerated. When distracted intensity decreases. REVIEW OF SYSTEMS 1. Constitutional Denies: weight loss, weight gain, fever, chills, night sweats, fatigue 2. Eyes Denies: change in vision, double vision, eye pain, eye discharge, icterus 3. ENT Denies: change in hearing, ear pain, ear discharge, nose bleed, nasal congestion, sore throat 4. Respiratory Denies: SOB, wheezing, cough, sputum, hemoptysis 5. CV Denies: chest pain, palpitations, syncope, edema, dyspnea 6. GI Denies: abdominal pain, decreased appetite, nausea, vomiting, change in bowel habitus, diarrhea, constipation, melena, BRBPR 7. Denies: dysuria, frequency, hematuria, nocturia, urgency 8. Metabolic Denies: cold intolerance, heat intolerance, polyphagia, polydipsia 9. Neurologic Denies: Essential tremor, headache, dizziness, seizure, change in mental status, focal weakness, focal numbness 10. Musculoskeletal Denies: myalgia, joint pain, joint redness, joint swelling, extremity pain 11. Hematologic Denies: bleeding, bruising, hematoma, lymphadenopathy, icterus 12. Skin Denies: rash, lesion 13. Psychiatric Denies: anxiety, depression Past Medical History: Diagnosis Date ??? Anxiety ??? Bipolar affect, depressed (CMS/HCC) (FORMERLY [facility]) ??? Cyclic vomiting syndrome ??? Depression ??? Headache, tension-type ??? Migraine ??? Weight loss Past Surgical History: Procedure Laterality Date ??? ARTHROSCOPIC SURGERY Left 1984,1994,2001 knee ??? [...] 1983 Quit date: 2000 Years since quittin.9 ??? Smokeless tobacco: Never Used ??? Tobacco comment: off and on Substance Use Topics ??? Alcohol use: No Comment: on occasion Allergies Allergen Reactions ??? Compazine [Prochlorperazine] Other (See comments) made me feel weird, odd also agitation ??? Phenergan [Promethazine] Agitation ??? Zithromax [Azithromycin] Stomach upset Medications Prior to Admission Medication Sig Dispense Refill Last Dose ??? apixaban (ELIQUIS) 5 mg tablet Take 5 mg by mouth 2 (two) times a day ??? dicyclomine (BENTYL) 10 mg capsule Take 20 mg by mouth 2 (two) times a day ??? flecainide (TAMBOCOR) 50 mg tablet Take 50 mg by mouth 2 (two) times a day ??? metoprolol XL (TOPROL-XL) 25 mg extended release tablet Take 25 mg by mouth daily ??? pantoprazole DR (PROTONIX) 40 mg EC tablet Take 40 mg by mouth every 12 (twelve) hours ??? ondansetron (ZOFRAN) 4 mg tablet Take 1 tablet (4 mg total) by mouth every 6 (six) hours 12 tablet 0 ??? SUMAtriptan (IMITREX) 50 mg tablet Take 50 mg by mouth once as needed for migraine. May repeat dose once in 2 hours if no relief. Do not exceed 2 doses in 24 hours. Objective: Patient Vitals for the past 24 hrs: BP Temp Temp src Pulse Resp SpO2 Height Weight 08/09/21 1108 110/62 36.3 ??C (97.4 ??F) Temporal 76 20 98 % -- -- 08/09/21 0810 -- -- -- 72 -- -- -- -- 08/09/21 0720 119/63 36.6 ??C (97.8 ??F) Temporal 76 18 100 % -- -- 08/09/21 0100 133/65 36.3 ??C (97.3 ??F) Temporal 70 16 100 % 162.6 cm (5' 4 ) 67.7 kg (149 lb 4.8 oz) 08/08/21 2156 109/67 37 ??C (98.6 ??F) Oral 66 16 99 % -- -- 08/08/21 1930 109/60 36.7 ??C (98 ??F) Temporal 81 18 100 % 162.6 cm (5' 4 ) 65.8 kg (145 lb) Physical Exam: General: Awake and alert. No acute distress. Eyes: EOMI, CANDIDA, sclerae non icteric. Neck: supple, no lymphadenopathy, no gross carotid bruits appreciated Pharynx: No gross oral lesion, tongue midline, mucous membranes moist. CV: Heart regular rate and rhythm. No murmur. Respiratory: Lungs clear to auscultation bilaterally, no rales, rhonchi or wheezes, good inspiratory effort. GI: Abdomen with bowel sounds present, soft, nontender, nondistended, no hepatomegaly. : Extremities: No gross edema, pedal artery pulses present bilaterally. Neurologic: Muscular Strength upper and lower extremities 5/5 bilaterally, DTRs 2/4 biceps and knees, sensory intact, cranial nerves 2-12 within normal limits, good coordination, normal speech. Oriented x 3. Musculoskeletal: No gross joint erythema, edema, tenderness. Skin: No rash or lesion seen. Psychiatric: Appropriate mood and affect. Laboratory Results: Recent Results (from the past 24 hour(s)) CBC with auto differential Collection Time: 08/08/21 8:43 PM Result Value Ref Range WBC 10.0 (H) 3.8 - 9.9 K/cumm Hgb 11.1 (L) 11.9 - 15.5 g/dL Hct 35.1 (L) 35.6 - 45.5 % Plt 328 150 - 400 K/cumm MPV 10.3 9.1 - 12.3 fL RBC 3.99 3.90 - 5.20 M/cumm MCV 88.0 81.3 - 96.4 fL MCH 27.8 27.1 - 33.3 pg MCHC 31.6 (L) 32.3 - 35.7 g/dL RDW CV 15.2 (H) 11.1 - 14.9 % RDW SD 48.6 (H) 35.7 - 48.1 fL NRBC abs 0.00 0.00 - 0.01 K/cumm Comprehensive metabolic panel Collection Time: 08/08/21 8:43 PM Result Value Ref Range Sodium 138 135 - 145 mmol/L Potassium, pl 3.5 3.3 - 4.9 mmol/L Chloride 105 97 - 110 mmol/L CO2 22 22 - 32 mmol/L Anion gap 11 2 - 15 mmol/L BUN 10 8 - 25 mg/dL Creatinine 0.59 (L) 0.60 - 1.10 mg/dL Glucose 128 70 - 199 mg/dL Calcium 9.4 8.5 - 10.3 mg/dL Bilirubin, total 0.2 0.1 - 1.2 mg/dL Protein, pl 7.4 6.5 - 8.5 g/dL Albumin 4.5 3.5 - 5.0 g/dL Alk phos 85 40 - 130 Units/L ALT 10 7 - 45 Units/L AST 21 10 - 45 Units/L Lipase Collection Time: 08/08/21 8:43 PM Result Value Ref Range Lipase 34 10 - 99 Units/L Differential, auto Collection Time: 08/08/21 8:43 PM Result Value Ref Range Neutrophil abs 8.4 (H) 1.7 - 6.5 K/cumm Imm gran abs 0.0 0.0 - 0.1 K/cumm Lymphocyte abs 0.9 0.8 - 3.3 K/cumm Monocyte abs 0.7 0.2 - 0.8 K/cumm Eosinophil abs 0.0 0.0 - 0.5 K/cumm Basophil abs 0.0 0.0 - 0.1 K/cumm Neutrophil pct 84.0 % Imm gran pct 0.4 % Lymphocyte pct 8.5 % Monocyte pct 6.9 % Eosinophil pct 0.0 % Basophil pct 0.2 % Troponin T high-sensitivity series (baseline, 2hr, 4hr, 6hr) Collection Time: 08/08/21 8:43 PM Result Value Ref Range Trop T hs <6 <=14 ng/L eGFR Collection Time: 08/08/21 8:43 PM Result Value Ref Range eGFR 105 mL/min/1.73 m2 Troponin T high-sensitivity 2-hour Collection Time: 08/08/21 11:29 PM Result Value Ref Range Trop T hs <6 <=14 ng/L Trop T hs delta 0 ng/L Trop T hs interp Insignificant Urinalysis reflex to microscopic and culture Urine, clean voided Collection Time: 08/08/21 11:29 PM Specimen: Urine, clean voided Result Value Ref Range Color, ur Yellow Yellow Clarity, ur Clear Clear Specific gravity, ur OVER 1.003 - 1.030 pH, urine 7.5 Protein, ur ql Trace Negative Glucose, ur ql Negative Negative Ketones, ur 1+ (A) Negative Bilirubin, ur Negative Negative Blood, ur Negative Negative Urobilinogen, ur <2.0 <2.0 mg/dL Nitrite, ur Negative Negative Leukocyte esterase, ur Negative Negative UA reflex comment Reflex conditions for microscopic UA and culture not met. Basic metabolic panel Collection Time: 08/09/21 6:48 AM Result Value Ref Range Sodium 141 135 - 145 mmol/L Potassium, pl 3.4 3.3 - 4.9 mmol/L Chloride 108 97 - 110 mmol/L CO2 23 22 - 32 mmol/L Anion gap 9 2 - 15 mmol/L BUN 9 8 - 25 mg/dL Creatinine 0.52 (L) 0.60 - 1.10 mg/dL Glucose 103 70 - 199 mg/dL Calcium 8.9 8.5 - 10.3 mg/dL eGFR Collection Time: 08/09/21 6:48 AM Result Value Ref Range eGFR 109 mL/min/1.73 m2 Radiology: ECG 12 lead Result Date: 08/09/2021 Narrative: Vent Rate: 65 bpm RR Interval: 916 msec TN Interval: 133 msec QRS Duration: 81 msec QT Interval: 425 msec QTC Interval: 437 msec P-R-T [place]: 142 - 173 - 165 degrees SINUS RHYTHM WITH FREQUENT SUPRAVENTRICULAR PREMATURE COMPLEXES ARM LEADS REVERSED [INVERTED P AND QRS IN I] ABNORMAL RHYTHM ECG Electronically Signed By: Dr Ryan [place] CT Abdomen Pelvis W Contrast Result Date: 08/09/2021 Narrative: EXAM DESCRIPTION: CT ABDOMEN PELVIS W CONTRAST REASON FOR STUDY: Abdominal pain, acute, nonlocalized c/o has had abd pain n/v and unable to keep anything down Prior exam done on 08/08/21 at 9:35 pm For evaluation of small bowel intussusception TECHNIQUE: CT scan of the abdomen and pelvisperformed with intravenous and without oral contrast using helical scanning technique with dynamic intravenous contrast injection. Reconstructed coronal and sagittal MPR images reviewed. All images stored on PACS. Automated exposure control was used as a dose optimization technique for this examination. CONTRAST TYPE/DOSE: 100mL of IOVERSOL 320 MG IODINE/ML INTRAVENOUS SYRINGE injected via intravenous COMPARISON: 08/08/2021 FINDINGS: LOWER CHEST: Lung bases are clear. Heart size normal. No effusion. LIVER/BILIARY: Liver unremarkable. Biliary tree normal in caliber. GALLBLADDER: Absent. SPLEEN: Normal. PANCREAS: Normal. ADRENAL GLANDS: Normal. KIDNEYS/URINARY TRACT: Right calyceal diverticulum. Contrast in the collecting systems. GI: Stomach and small bowel appear normal. Colon and appendix unremarkable. OTHER ABDOMINAL/PELVIS: Major vascular structures are grossly patent and normal in caliber. No enlarged lymph node or free fluid. MSK: Mild facet arthropathy. BODY WALL: Normal. IMPRESSION: Intussusception has resolved. No acute abnormality identified. THIS IS AN ELECTRONICALLY VERIFIED FINAL REPORT 08/09/2021 5:39 AM - Electronically signed by Boone Hernandez M.D. AR: GRAEME Report ID: [id number] Reading Location: [id number] CT Abdomen Pelvis W Contrast Result Date: 08/08/2021 Narrative: EXAM DESCRIPTION: CT ABDOMEN PELVIS W CONTRAST REASON FOR STUDY: Abdominal pain, acute, nonlocalized h/o A-fib on Eliquis, cyclic vomiting, IBS, anxiety, and depression, s/p cholecystectomy and hernia repair, generalized abdominal pain for 1 week, worsening for 4 days. Associated symptoms include nausea, vomiting, and chest pain, as well as 15 episodes of diarrhea since last night TECHNIQUE: CT scan of the abdomen and pelvis performed with intravenous and without oral contrast using helical scanning technique with dynamic intravenous contrast injection. Reconstructed coronal and sagittal MPR images reviewed. All images stored on PACS. Automated exposure control was used as a doseoptimization technique for this examination. CONTRAST TYPE/DOSE: 100 mL Optiray 320 COMPARISON: 01/25/2020. FINDINGS: LOWER CHEST: No significant abnormality is visualized. LIVER: Diffuse hepatic steatosis. Normal size. Small calcification of the lateral right hepatic lobe, likely sequela of healed granulomatous disease. GALLBLADDER: Surgically absent. BILE DUCTS: No intrahepatic or extrahepatic ductal dilatation. PANCREAS: Enhances normally. No peripancreatic inflammatory change. SPLEEN: Enhances normally. Normal size. Small splenule located anteriorly. ADRENALS: Normal. KIDNEYS/URINARY TRACT: No visualized stones. No hydronephrosis or hydroureter. Symmetric enhancement. Small bilateral renal cysts, unchanged from prior. Persistent lobulation of both kidneys, a normal anatomic variant. Small focus of gas within the anti dependent urinary bladder, which also appears mildly thick-walled. In the absence of any recent instrumentation, findings are suspicious for cystitis. Correlation with urinalysis recommended. REPRODUCTIVE: No suspicious abnormality. GI: No evidence of acute gastrointestinal inflammation or obstruction. Short segment jejunal-jejunal intussusception within theleft upper quadrant of the abdomen, measuring no greater than 3.5 cm, likely a transient phenomenon. Normal appendix. PERITONEUM: No intraperitoneal free fluid or free air. Tiny fat containing umbilical hernia. RETROPERITONEUM: No suspicious abdominal or pelvic lymphadenopathy. VASCULATURE: No abdominal aortic aneurysm. Mild atheromatous disease of the abdominal aorta and branch vessels. MUSCULOSK ELETAL: No suspicious abnormality. OTHER: No other abnormality. IMPRESSION: 1. Possible cystitis. Correlation with urinalysis recommended. 2. Short segment jejunal-jejunal intussusception in the leftupper quadrant of the abdomen measures 3.5 cm. Small bowel small bowel intussusceptions measuring less than 5 cm in length are typically a transient phenomenon. 3. Diffuse hepatic steatosis. 4. Postsurgical changes of cholecystectomy. THIS IS AN ELECTRONICALLY VERIFIED FINAL REPORT 08/08/2021 10:20 PM - Electronically signed by Rip De La Vega M.D. RT: RT Report ID: [id number] Reading Location: [place] [id number] ASSESSMENT AND PLAN: Principal Problem: Intussusception intestine (CMS/HCC) (FORMERLY [facility]) Active Problems: Irritable bowel syndrome with diarrhea Essential tremor Hypertension Atrial fibrillation (CMS/HCC) (HCC) Migraine headache Abdominal pain, generalized Cyclic vomiting syndrome Bipolar affect, depressed (CMS/HCC) (HCC) Resolved Problems: No resolved hospital problems. Intussusception intestine (CMS/HCC) (FORMERLY [facility]) 08/08/2021 CT abdomen/pelvis with contrast: Possible cystitis, short segmental jejunal to jejunal intussusception measuring 3.5 cm in left upper quadrant 08/09/2021 CT abdomen/pelvis with contrast: Intussusception no longer visualized Per EMR review: Patient has had 4 CT exam, 4 EGDs, 2 colonoscopys. Has been told colitis basis of CT, given diagnoses IBD-d Patient receiving IV fluid Reglan motility help Zofran for nausea Patient tolerating p.o. food and liquid Patient will need follow-up with her GI doctor for further workup and monitoring. Will continue to monitor and discharged home tomorrow Abdominal pain, generalized Patient has ongoing chronic abdominal pain issues being evaluated by her GI doc Dr. Fountain See above Cyclic vomiting syndrome Patient has a history of IBS with cyclic vomiting syndrome Patient smokes prescription strength marijuana daily Continue Zofran Started Reglan Monitoring electrolytes IV fluids as needed Will continue to monitor Irritable bowel syndrome with diarrhea Patient on Bentyl Monitoring electrolytes Hypertension Have reviewed 24 hour blood pressures and patient is stable Home Metoprolol with hold parameters as patient has AFib Patient on IV fluids Migraine headache Patient not complaining of headache or migraines at this time Sumatriptan on hold Atrial fibrillation (CMS/HCC) (FORMERLY [facility]) No acute events since admission Patient on Eliquis Metoprolol for rate control with hold parameters Will continue to monitor Essential tremor Patient reports after waking up had increase in the essential tremor Patient on beta-isaias No other focal deficit LFTs, electrolytes within normal range Patient denies drug or alcohol use: Will get tox screen to rule out withdrawal Will continue to monitor Bipolar affect, depressed (CMS/HCC) (HCC) Per patient has a history of bipolar depressive type Stable at this time Not currently on any medication Patient denies any suicidal homicidal ideation Code: Full code Fluids: Normal saline 0.9 infusion 75 mL completed encouraging p.o. fluid intake Electrolyte: Monitoring electrolytes and within normal limits Nutrition: Nutritional supplements vitamin supplements as needed Diet: Adult regular diet GI prophylaxis: Famotidine 20 mg DVT prophylaxis: On Eliquis Precaution: None Consult: Surgical Disposition: Patient will most likely discharge home tomorrow with follow-up with her GI as outpatient. Portions of the record may have been created with voice recognition software. Occasional wrong-word or '[id number]' substitutions may have occurred due to the inherent limitations of voice recognition software. Read the chart carefully and recognize, using context, where substitutions have occurred. MDM: Joshua Pearson [facility] PGY-1 [facility] CC: Parmjit Dai MD Cosigned by Amelia Riley MD at 08/09/2021 7:06 PM KILN FIRER FIRER FIRER Associated attestation - Amelia Riley MD - 08/09/2021 7:06 PM KILN FIRER I personally saw and examined the patient on 08/09/2021 and discussed the case with the resident. Ihave reviewed the resident's note and agree with the content and plan as written. Additional information as noted below. 51-year-old female with PMHx of bipolar 2 disorder, paroxysmal AFib, cannabis use disorder, cyclical vomiting syndrome, IBS presenting for abdominal pain, nausea, vomiting. CT abdomen/pelvis in the ED found to have intussusception. Patient was admitted overnight for evaluation with surgery. RepeatCT abdomen pelvis this a.m. demonstrated resolution of intussusception. Patient tolerated p.o. welland was cleared for discharge from General surgery however patient felt she was still on well and was complaining of tremor. Denied any drug use or other medications. Will continue patient on Reglan Zofran p.r.n. advanced diet as tolerated. Will obtain UDS to assess for possible substance use. If patient remains well controlled, plan to discharge tomorrow on Reglan with close follow- up with GI for further workup. Continue flecainide, metoprolol, Eliquis for AFib management. Rest of plan per resident note Amelia Riley MD Family Medicine Hospitalist Attending Physician - [facility] MDM: Moderate complexity documented in this encounter Consult Notes * Salima Knowles NP - 08/09/2021 11:10 AM CSTAssociated Order(s): IP CONSULT TO GENERAL SURGERY General Surgery Consult Reason for Consult: small bowel intussusception Requesting Provider: Subjective Patient is a 51 y.o. female with chief complaint of nausea, vomiting. HPI: Patient with acute onset nausea, vomiting, who was seen at outside hospital yesterday, treated the vomiting, and was then discharged home. She had return of symptoms and diarrhea shortly after being discharged and then presented to our hospital. Imaging demonstrated a short segment jejunal intussusception. She was made npo,, admitted for observation. Repeat ct 6 hours later demonstrated resolution of symptoms. Patient states she feels sores and somewhat still nauseated. Denies blood in stool. Past Medical History: Diagnosis Date ??? Anxiety ??? Bipolar affect, depressed (CMS/HCC) (HCC) ??? Cyclic vomiting syndrome ??? Depression ??? Headache, tension-type ??? Migraine ??? Weight loss Past Surgical History: Procedure Laterality Date ??? ARTHROSCOPIC SURGERY Left 1984,1994,2001 knee ??? SECTION 1992 ??? CHOLECYSTECTOMY ??? ENDOMETRIAL ABLATION ??? HERNIA REPAIR ??? TUBAL LIGATION HOME MEDICATIONS : apixaban (ELIQUIS) 5 mg tablet dicyclomine (BENTYL) 10 mg capsule flecainide (TAMBOCOR) 50 mg tablet metoprolol XL (TOPROL-XL) 25 mg extended release tablet pantoprazole DR (PROTONIX) 40 mg EC tablet ondansetron (ZOFRAN) 4 mg tablet SUMAtriptan (IMITREX) 50 mg tablet busPIRone (BUSPAR) 15 mg tablet calcium carbonate-mag hydroxid 400-135 mg/5 mL suspension ciprofloxacin (CIPRO) 500 mg tablet clonazePAM (KlonoPIN) 0.5 mg tablet desvenlafaxine 50 mg tablet extended release 24hr divalproex ER (DEPAKOTE ER) 500 mg 24 hr tablet naproxen (ANAPROX,ALEVE) 220 mg tablet naproxen-diphenhydramine 220-25 mg tablet primidone (MYSOLINE) 50 mg tablet venlafaxine XR (EFFEXOR-XR) 150 mg 24 hr capsule Allergies Allergen Reactions ??? Compazine [Prochlorperazine] Other (See comments) made me feel weird, odd also agitation ??? Phenergan [Promethazine] Agitation ??? Zithromax [Azithromycin] Stomach upset Social History Tobacco Use ??? Smoking status: Former Smoker Start date: 1983 Quit date: 2000 Years since quittin.9 ??? Smokeless tobacco: Never Used ??? Tobacco comment: off and on Substance Use Topics ??? Alcohol use: No Comment: on occasion Family History Problem Relation Age of Onset ??? Esophageal cancer Maternal Grandmother ??? Heart disease Maternal Grandmother ??? Stroke Maternal Grandmother ??? Hypertension Maternal Grandmother ??? Migraines Mother Review of Systems: Constitutional: negative Eyes: negative Ears, nose, mouth, throat, and face: negative Respiratory: negative Cardiovascular: positive for chest pressure/discomfort Gastrointestinal: positive for abdominal pain, change in bowel habits, diarrhea, nausea and vomiting Genitourinary: negative Integument/breast: negative Musculoskeletal: negative Neurological: negative Behavioral/Psych: negative Vitals: 24hr Min/Max: Temp Min: 36.3 ??C (97.3 ??F) Max: 37 ??C (98.6 ??F) Pulse Min: 66 Max: 81 BP Min: 109/67 Max: 133/65 Resp Min: 16 Max: 20 SpO2 Min: 98 % Max: 100 % Most Recent : Vitals: 08/09/21 1108 BP: 110/62 Pulse: 76 Resp: 20 Temp: 36.3 ??C (97.4 ??F) SpO2: 98% I/O last 2 completed shifts: In: 277 [I.V.:277] Out: - I/O this shift: In: 240 [P.O.:240] Out: - Objective Physical Exam: General appearance: appears stated age, cooperative, fatigued and mild distress Head: Normocephalic, without obvious abnormality, atraumatic Eyes: conjunctivae/corneas clear. PERRL Lungs: unlabored without cough Heart: regular rate and rhythm Abdomen:soft, non-distended, some tenderness but non-specific, no guarding, no rebound Extremities: extremities normal, warm and well-perfused Pulses: 2+ and symmetric Skin: Skin color, texture, turgor normal. No rashes or lesions Neurologic: Alert and oriented x4, non-focal ASA Classification:II Lab/Radiology/Diagnostic Review: Laboratory review: Lab results in the last 24 hours: Recent Results (from the past 24 hour(s)) CBC with auto differential Collection Time: 08/08/21 8:43 PM Result Value Ref Range WBC 10.0 (H) 3.8 - 9.9 K/cumm Hgb 11.1 (L) 11.9 - 15.5 g/dL Hct 35.1 (L) 35.6 - 45.5 % Plt 328 150 - 400 K/cumm MPV 10.3 9.1 - 12.3 fL RBC 3.99 3.90 - 5.20 M/cumm MCV 88.0 81.3 - 96.4 fL MCH 27.8 27.1 - 33.3 pg MCHC 31.6 (L) 32.3 - 35.7 g/dL RDW CV 15.2 (H) 11.1 - 14.9 % RDW SD 48.6 (H) 35.7 - 48.1 fL NRBC abs 0.00 0.00 - 0.01 K/cumm Comprehensive metabolic panel Collection Time: 08/08/21 8:43 PM Result Value Ref Range Sodium 138 135 - 145 mmol/L Potassium, pl 3.5 3.3 - 4.9 mmol/L Chloride 105 97 - 110 mmol/L CO2 22 22 - 32 mmol/L Anion gap 11 2 - 15 mmol/L BUN 10 8 - 25 mg/dL Creatinine 0.59 (L) 0.60 - 1.10 mg/dL Glucose 128 70 - 199 mg/dL Calcium 9.4 8.5 - 10.3 mg/dL Bilirubin, total 0.2 0.1 - 1.2 mg/dL Protein, pl 7.4 6.5 - 8.5 g/dL Albumin 4.5 3.5 - 5.0 g/dL Alk phos 85 40 - 130 Units/L ALT 10 7 - 45 Units/L AST 21 10 - 45 Units/L Lipase Collection Time: 08/08/21 8:43 PM Result Value Ref Range Lipase 34 10 - 99 Units/L Differential, auto Collection Time: 08/08/21 8:43 PM Result Value Ref Range Neutrophil abs 8.4 (H) 1.7 - 6.5 K/cumm Imm gran abs 0.0 0.0 - 0.1 K/cumm Lymphocyte abs 0.9 0.8 - 3.3 K/cumm Monocyte abs 0.7 0.2 - 0.8 K/cumm Eosinophil abs 0.0 0.0 - 0.5 K/cumm Basophil abs 0.0 0.0 - 0.1 K/cumm Neutrophil pct 84.0 % Imm gran pct 0.4 % Lymphocyte pct 8.5 % Monocyte pct 6.9 % Eosinophil pct 0.0 % Basophil pct 0.2 % Troponin T high-sensitivity series (baseline, 2hr, 4hr, 6hr) Collection Time: 08/08/21 8:43 PM Result Value Ref Range Trop T hs <6 <=14 ng/L eGFR Collection Time: 08/08/21 8:43 PM Result Value Ref Range eGFR 105 mL/min/1.73 m2 Troponin T high-sensitivity 2-hour Collection Time: 08/08/21 11:29 PM Result Value Ref Range Trop T hs <6 <=14 ng/L Trop T hs delta 0 ng/L Trop T hs interp Insignificant Urinalysis reflex to microscopic and culture Urine, clean voided Collection Time: 08/08/21 11:29 PM Specimen: Urine, clean voided Result Value Ref Range Color, ur Yellow Yellow Clarity, ur Clear Clear Specific gravity, ur OVER 1.003 - 1.030 pH, urine 7.5 Protein, ur ql Trace Negative Glucose, ur ql Negative Negative Ketones, ur 1+ (A) Negative Bilirubin, ur Negative Negative Blood, ur Negative Negative Urobilinogen, ur <2.0 <2.0 mg/dL Nitrite, ur Negative Negative Leukocyte esterase, ur Negative Negative UA reflex comment Reflex conditions for microscopic UA and culture not met. Basic metabolic panel Collection Time: 08/09/21 6:48 AM Result Value Ref Range Sodium 141 135 - 145 mmol/L Potassium, pl 3.4 3.3 - 4.9 mmol/L Chloride 108 97 - 110 mmol/L CO2 23 22 - 32 mmol/L Anion gap 9 2 - 15 mmol/L BUN 9 8 - 25 mg/dL Creatinine 0.52 (L) 0.60 - 1.10 mg/dL Glucose 103 70 - 199 mg/dL Calcium 8.9 8.5 - 10.3 mg/dL eGFR Collection Time: 08/09/21 6:48 AM Result Value Ref Range eGFR 109 mL/min/1.73 m2 Imaging review: I have reviewed the result(s) ct abd and pelvis Assessment /Plan will initiate food, if she tolerates this, she can be discharged. We discussed that if she does have recurrent symptoms any time in the future that she needs to have ct imaging and follow up to discuss surgical intervention. Patient voices understanding. Principal Problem: Abdominal pain, generalized Cosigned by Tico Burton MD at 08/09/2021 11:22 AM KILN FIRER FIRER FIRER documented in this encounter Nursing Notes * Brittny Jay RN - 08/10/2021 3:12 PM CST 1500 IV removed. All belongings packed. To cigar packer and picker prescription medications at outside pharmacy. Discharged to home with and escorted out to car in stable condition. FIRER documented in this encounter ED Notes * Juice Pineda MD - 08/08/2021 8:52 PM CST Chief Complaint Patient presents with ??? Abdominal Pain HPI 08/08/2021 8:52 PM Sarahy Gill is a 51 y.o. female former smoker with a h/o A-fib on Eliquis, cyclic vomiting, IBS, anxiety, and depression, s/p cholecystectomy and hernia repair, who arrived via EMS with generalized abdominal pain for 1 week, worsening for 4 days. Associated symptoms include nausea, vomiting, and chest pain, as well as 15 episodes of diarrhea since last night. Patient states that she was seen at [place] ED this morning, and was discharged after receiving Haldol, Benadryl, and IV fluids, but her symptoms have persisted. She denies having a CT of her abdomen today. No other complaints at this time. GI: Dr. Salmeron Past Medical History: Diagnosis Date ??? Anxiety ??? Bipolar affect, depressed (CMS/HCC) (HCC) ??? Cyclic vomiting syndrome ??? Depression ??? Headache, tension-type ??? Migraine ??? Weight loss Past Surgical History: Procedure Laterality Date ??? ARTHROSCOPIC SURGERY Left 1984,1994,2001 knee ??? [...] 1983 Quit date: 2000 Years since quittin.9 ??? Smokeless tobacco: Never Used ??? Tobacco comment: off and on Vaping Use ??? Vaping Use: Every day Substance Use Topics ??? Alcohol use: No Comment: on occasion ??? Drug use: Yes Types: Marijuana Review of Systems Review of Systems Constitutional: Negative for chills and fever. HENT: Negative for congestion, rhinorrhea and sore throat. Eyes: Negative for pain and visual disturbance. Respiratory: Negative for cough and shortness of breath. Cardiovascular: Positive for chest pain. Negative for leg swelling. Gastrointestinal: Positive for abdominal pain, diarrhea, nausea and vomiting. Genitourinary: Negative for difficulty urinating and dysuria. Musculoskeletal: Negative for arthralgias and myalgias. Skin: Negative for rash and wound. Neurological: Negative for dizziness and headaches. Psychiatric/Behavioral: Negative for behavioral problems. Physical Exam ED Triage Vitals Temp Pulse Resp BP SpO2 08/08/21192908/08/21192908/08/21192908/08/[id number]/08/[id number] 36.7 ??C (98 ??F) 81 18 109/60 100 % Temp src Heart Rate Source Patient Position BP Location FiO2 (%) 08/08/21192908/08/21215508/09/219908/08/212155 -- Temporal Monitor Lying;HOB 30 degrees Left arm Physical Exam Vitals and nursing note reviewed. HENT: Head: Normocephalic and atraumatic. Eyes: Extraocular Movements: Extraocular movements intact. Conjunctiva/sclera: Conjunctivae normal. Cardiovascular: Rate and Rhythm: Normal rate and regular rhythm. Pulmonary: Effort: Pulmonary effort is normal. No respiratory distress. Breath sounds: Normal breath sounds. Abdominal: Palpations: Abdomen is soft. Tenderness: There is generalized abdominal tenderness. Musculoskeletal: Cervical back: Normal range of motion and neck supple. Skin: General: Skin is warm and dry. Neurological: General: No focal deficit present. Mental Status: She is alert and oriented to person, place, and time. Procedures Labs Reviewed URINALYSIS AND REFLEX TO MICROSCOPIC AND CULTURE - Abnormal Result Value Color, ur Yellow Clarity, ur Clear Specific gravity, ur OVER pH, urine 7.5 Protein, ur ql Trace Glucose, ur ql Negative Ketones, ur 1+ (*) Bilirubin, ur Negative Blood, ur Negative Urobilinogen, [...] for uric acid stone formation. Source: [employer].Last revised 09-10-2017 CBC WITH AUTO DIFFERENTIAL - Abnormal WBC 10.0 (*) Hgb 11.1 (*) Hct 35.1 (*) Plt 328 MPV 10.3 RBC 3.99 MCV 88.0 MCH 27.8 MCHC 31.6 (*) RDW CV 15.2 (*) RDW SD 48.6 (*) NRBC abs 0.00 COMPREHENSIVE METABOLIC PANEL - Abnormal Sodium 138 Potassium, pl 3.5 Chloride 105 CO2 22 Anion gap 11 BUN 10 Creatinine 0.59 (*) Glucose 128 Calcium 9.4 Bilirubin, total 0.2 Protein, pl 7.4 Albumin 4.5 Alk phos 85 ALT 10 AST 21 DIFFERENTIAL AUTO - Abnormal Neutrophil abs 8.4 (*) Imm gran abs 0.0 Lymphocyte abs 0.9 Monocyte abs 0.7 Eosinophil abs 0.0 Basophil abs 0.0 Neutrophil pct 84.0 Imm gran pct 0.4 Lymphocyte pct 8.5 Monocyte pct 6.9 Eosinophil pct 0.0 Basophil pct 0.2 BASIC METABOLIC PANEL - Abnormal Sodium 141 Potassium, pl 3.4 Chloride 108 CO2 23 Anion gap 9 BUN 9 Creatinine 0.52 (*) Glucose 103 Calcium 8.9 LIPASE Lipase 34 TROPONIN T HIGH-SENSITIVITY SERIES (BASELINE, 2HR, 4HR, 6HR) Trop T hs <6 EGFR eGFR 105 TROPONIN T HIGH-SENSITIVITY 2-HOUR Trop T hs <6 Trop T hs delta 0 Trop T hs interp Insignificant EGFR eGFR 109 COMPREHENSIVE METABOLIC PANEL Sodium 143 Potassium, pl 3.4 Chloride 106 CO2 23 Anion gap 14 BUN 15 Creatinine 0.63 Glucose 93 Calcium 9.2 Bilirubin, total 0.3 Protein, pl 7.1 Albumin 4.4 Alk phos 78 ALT 11 AST [address] Abdomen Pelvis W Contrast Final Result CT Abdomen Pelvis W Contrast Final Result BP 112/65 (BP Location: Left arm) Pulse 84 Temp 36.1 ??C (97 ??F) (Temporal) Resp 16 Ht 162.6 cm (5' 4 ) Wt 67.7 kg (149 lb 4.8 oz) SpO2 100% BMI 25.63 kg/m?? MDM Number of Diagnoses or Management Options Amount and/or Complexity of Data Reviewed Clinical lab tests: ordered Tests in the radiology section of CPT??: ordered Risk of Complications, Morbidity, and/or Mortality Presenting problems: moderate Diagnostic procedures: moderate Management options: moderate General comments: Patient has a history of cyclic vomiting. Also has a history of atrial fibrillation. She has some chest pain and abdominal pain with persistent nausea and vomiting. Will start fluids and Zofran. Will get CT scan. Will check labs. Patient Progress Patient progress: stable ED Course as of 08/11/21 0958 Time: 08/08 2056 Comment: I discussed case and findings, including treatment plan, evaluations, consults, and lab/imaging results. Dr. Barros agreed to assume care of the patient. By: Kellie Scott Time: 08/08 2300 Comment: Patient was feeling better but now is feeling nauseated again. Abdomen: Soft, no guarding or rebound. Will page surgery to consult on CT scan results. By: Roxy Barros MD Time: 08/08 2311 Comment: Benson AGUIRRE recommends repeat CT with contrast in 6 hours. Will page hospitalist for admit. By: Roxy Barros MD Time: 08/08 157 Comment: Dr. Huertas has accepted the patient for admit. By: Roxy Barros MD Final diagnoses: Abdominal pain, generalized Non-intractable vomiting, presence of nausea not specified, unspecified vomiting type Diarrhea, unspecified type Small bowel intussusception (CMS/HCC) (HCC) This note is prepared by Kellie Scott, acting as a scribe for Juice Pineda MD. I electronically signed this note at 9:58 AM on 08/11/2021. I, Juice Pineda MD, have personally performed the services described in the documentation, reviewed the documentation, as recorded by the scribe in my presence, and it accurately and completely records my words and actions. Kellie Scott 08/08/212055 Juice Pineda MD 08/08/212127 Juice Pineda MD 08/11/21957 FIRER FIRER * Kelby Keita RN - 08/08/2021 7:29 PM CST Brought to triage via [facility] c/o has had abd pain n/v. Was seen at [facility] today and wasgiven haldol benadryl and iv fluids. States was discharged home and is not feeling better. has been unable to keep any food down. FIRER documented in this encounter Miscellaneous Notes * Plan of Care - Brittny Jay RN - 08/10/2021 3:11 PM CST Problem: Health Behavior: Goal: Understanding of discharge needs will improve Outcome: Adequate for Discharge Problem: Lack of Knowledge: Goal: Knowledge on safety and abstaining from self-injurious behavior will increase Outcome: Adequate for Discharge Goal: Knowledge of therapies/resources will increase Outcome: Adequate for Discharge Problem: Health Behavior: Goal: Ability to manage health-related needs will improve Outcome: Adequate for Discharge Problem: Low Risk for Self-Injurious Behavior: Goal: Ability to remain free from injury will improve Description: (Low Risk) Outcome: Adequate for Discharge Problem: Activity: Goal: Risk for activity intolerance will decrease Outcome: Adequate for Discharge Problem: Lack of Knowledge: Goal: Knowledge of disease or condition will improve Outcome: Adequate for Discharge Goal: Ability to state and carry out methods to decrease the pain will improve Outcome: Adequate for Discharge Problem: Nutritional: Goal: Nutritional status will be supported Outcome: Adequate for Discharge Problem: Fluid Volume: Goal: Maintenance of adequate hydration will improve Outcome: Adequate for Discharge Problem: Health Behavior: Goal: Ability to state signs and symptoms to report to health care provider will improve Outcome: Adequate for Discharge Problem: Physical Regulation: Goal: Complications related to the disease process, condition or treatment will be avoided or minimized Outcome: Adequate for Discharge Goal: Ability to maintain clinical measurements within normal limits will improve Outcome: Adequate for Discharge Problem: Sensory: Goal: Ability to identify factors that increase the pain will improve Outcome: Adequate for Discharge Goal: Ability to notify healthcare provider of pain before it becomes unmanageable or unbearable will improve Outcome: Adequate for Discharge Goal: Pain level will decrease Outcome: Adequate for Discharge Problem: Lack of Knowledge: Goal: Ability to state ways to decrease the risk of falls will improve Outcome: Adequate for Discharge Problem: Safety: Goal: Will remain free from falls Outcome: Adequate for Discharge Goal: Will remain free from injury from falls Outcome: Adequate for Discharge Goal: Will remain free from falls and injury in home environment Outcome: Adequate for Discharge Goals: Clinical Goals for the Shift: pt to have positive bowel sounds, VSS, pain controlled Summary: all goals met for stable discharge to home FIRER * Plan of Care - Brittny Jay RN - 08/10/2021 1:46 PM CST Problem: Health Behavior: Goal: Understanding of discharge needs will improve Outcome: Adequate for Discharge Problem: Lack of Knowledge: Goal: Knowledge on safety and abstaining from self-injurious behavior will increase Outcome: Adequate for Discharge Goal: Knowledge of therapies/resources will increase Outcome: Adequate for Discharge Problem: Health Behavior: Goal: Ability to manage health-related needs will improve Outcome: Adequate for Discharge Problem: Low Risk for Self-Injurious Behavior: Goal: Ability to remain free from injury will improve Description: (Low Risk) Outcome: Adequate for Discharge Problem: Activity: Goal: Risk for activity intolerance will decrease Outcome: Adequate for Discharge Problem: Lack of Knowledge: Goal: Knowledge of disease or condition will improve Outcome: Adequate for Discharge Goal: Ability to state and carry out methods to decrease the pain will improve Outcome: Adequate for Discharge Problem: Nutritional: Goal: Nutritional status will be supported Outcome: Adequate for Discharge Problem: Fluid Volume: Goal: Maintenance of adequate hydration will improve Outcome: Adequate for Discharge Problem: Health Behavior: Goal: Ability to state signs and symptoms to report to health care provider will improve Outcome: Adequate for Discharge Problem: Physical Regulation: Goal: Complications related to the disease process, condition or treatment will be avoided or minimized Outcome: Adequate for Discharge Goal: Ability to maintain clinical measurements within normal limits will improve Outcome: Adequate for Discharge Problem: Sensory: Goal: Ability to identify factors that increase the pain will improve Outcome: Adequate for Discharge Goal: Ability to notify healthcare provider of pain before it becomes unmanageable or unbearable will improve Outcome: Adequate for Discharge Goal: Pain level will decrease Outcome: Adequate for Discharge Problem: Lack of Knowledge: Goal: Ability to state ways to decrease the risk of falls will improve Outcome: Adequate for Discharge Problem: Safety: Goal: Will remain free from falls Outcome: Adequate for Discharge Goal: Will remain free from injury from falls Outcome: Adequate for Discharge Goal: Will remain free from falls and injury in home environment Outcome: Adequate for Discharge Goals: Clinical Goals for the Shift: pt to have positive bowel sounds, VSS, pain controlled Summary: all goals met for stable discharge to home FIRER * Plan of Care - Victoria Pope RN - 08/10/2021 4:57 AM CST Problem: Health Behavior: Goal: Understanding of discharge needs will improve Outcome: Progressing Problem: Lack of Knowledge: Goal: Knowledge on safety and abstaining from self-injurious behavior will increase Outcome: Progressing Goal: Knowledge of therapies/resources will increase Outcome: Progressing Problem: Health Behavior: Goal: Ability to manage health-related needs will improve Outcome: Progressing Problem: Low Risk for Self-Injurious Behavior: Goal: Ability to remain free from injury will improve Description: (Low Risk) Outcome: Progressing Problem: Activity: Goal: Risk for activity intolerance will decrease Outcome: Progressing Problem: Nutritional: Goal: Nutritional status will be supported Outcome: Progressing Problem: Lack of Knowledge: Goal: Knowledge of disease or condition will improve Outcome: Progressing Goal: Ability to state and carry out methods to decrease the pain will improve Outcome: Progressing Problem: Physical Regulation: Goal: Complications related to the disease process, condition or treatment will be avoided or minimized Outcome: Progressing Goal: Ability to maintain clinical measurements within normal limits will improve Outcome: Progressing Problem: Sensory: Goal: Ability to identify factors that increase the pain will improve Outcome: Progressing Goal: Ability to notify healthcare provider of pain before it becomes unmanageable or unbearable will improve Outcome: Progressing Goal: Pain level will decrease Outcome: Progressing Problem: Health Behavior: Goal: Ability to state signs and symptoms to report to health care provider will improve Outcome: Progressing Goals: Clinical Goals for the Shift: no diarrhea, pain and nausea relieved. oral intake sufficient. vs andlabs wnl. Summary: has slept at intervals. No diarrhea. Tolerating fluids po without nausea. Remains on scheduled po zofran. No request for pain med. FIRER * Assessment & Plan Note - Joshua Pearson MD - 08/09/2021 6:33 PM KILN FIRER Associated Problem(s): Intussusception intestine (CMS/HCC) (HCC) 08/08/2021 CT abdomen/pelvis with contrast: Possible cystitis, short segmental jejunal to jejunal intussusception measuring 3.5 cm in left upper quadrant 08/09/2021 CT abdomen/pelvis with contrast: Intussusception no longer visualized Patient receiving IV fluid Reglan motility help Zofran for nausea Patient tolerating p.o. food and liquid Will continue to monitor and discharged home tomorrow FIRER * Assessment & Plan Note - Joshua Pearson MD - 08/09/2021 6:29 PM KILN FIRER Associated Problem(s): Bipolar affect, depressed (HCC) Per patient has a history of bipolar depressive type Stable at this time Not currently on any medication Patient denies any suicidal homicidal ideation FIRER * Assessment & Plan Note - Joshua Pearson MD - 08/09/2021 6:18 PM KILN FIRER Associated Problem(s): Essential tremor Patient reports after waking up had increase in the essential tremor Patient on beta-isaias No other focal deficit LFTs, electrolytes within normal range Patient denies drug or alcohol use: Will get tox screen to rule out withdrawal Will continue to monitor FIRER FIRER * Assessment & Plan Note - Joshua Pearson MD - 08/09/2021 6:17 PM KILN FIRER Associated Problem(s): Atrial fibrillation (CMS/HCC) (HCC) No acute events since admission Patient on Eliquis Metoprolol for rate control with hold parameters Will continue to monitor FIRER * Assessment & Plan Note - Joshua Pearson MD - 08/09/2021 6:15 PM KILN FIRER Associated Problem(s): Migraine headache Patient not complaining of headache or migraines at this time Sumatriptan on hold FIRER * Assessment & Plan Note - Joshua Pearson MD - 08/09/2021 6:15 PM KILN FIRER Associated Problem(s): Irritable bowel syndrome with both constipation and diarrhea Patient on Bentyl Monitoring electrolytes FIRER * Assessment & Plan Note - Joshua Pearson MD - 08/09/2021 6:14 PM KILN FIRER Associated Problem(s): Hypertension Have reviewed 24 hour blood pressures and patient is stable Home Metoprolol with hold parameters as patient has AFib Patient on IV fluids FIRER FIRER * Assessment & Plan Note - Joshua Pearson MD - 08/09/2021 6:12 PM KILN FIRER Associated Problem(s): Cyclic vomiting syndrome Patient has a history of IBS with cyclic vomiting syndrome Patient smokes prescription strength marijuana daily Continue Zofran Started Reglan Monitoring electrolytes IV fluids as needed Will continue to monitor FIRER * Assessment & Plan Note - Joshua Pearson MD - 08/09/2021 6:10 PM KILN FIRER Associated Problem(s): Abdominal pain, generalized CT abdomen pelvis with contrast at [place] yesterday showed intussusception CT abdomen pelvis with contrast at [facility]: Showed resolution of intussusception Patient has generalized abdominal pain that is chronic in nature. Associated nausea and vomiting: On Zofran p.r.n. FIRER FIRER * Plan of Care - Nkechi Hernandez RN - 08/09/2021 11:44 AM CST Goals: Clinical Goals for the Shift: Patient will remain hemodynamically stable. Summary: VSS, adequate pain control, free from falls/injury FIRER * Plan of Care - Della Gates RN - 08/09/2021 6:11 AM CST Goals: Clinical Goals for the Shift: Patient will remain hemodynamically stable. Summary: Problem: Health Behavior: Goal: Understanding of discharge needs will improve Outcome: Progressing Problem: Lack of Knowledge: Goal: Knowledge on safety and abstaining from self-injurious behavior will increase Outcome: Progressing Goal: Knowledge of therapies/resources will increase Outcome: Progressing Problem: Health Behavior: Goal: Ability to manage health-related needs will improve Outcome: Progressing Problem: Low Risk for Self-Injurious Behavior: Goal: Ability to remain free from injury will improve Description: (Low Risk) Outcome: Progressing Problem: Activity: Goal: Risk for activity intolerance will decrease Outcome: Progressing Problem: Lack of Knowledge: Goal: Knowledge of disease or condition will improve Outcome: Progressing Goal: Ability to state and carry out methods to decrease the pain will improve Outcome: Progressing Problem: Fluid Volume: Goal: Maintenance of adequate hydration will improve Outcome: Progressing Problem: Health Behavior: Goal: Ability to state signs and symptoms to report to health care provider will improve Outcome: Progressing Problem: Physical Regulation: Goal: Complications related to the disease process, condition or treatment will be avoided or minimized Outcome: Progressing Goal: Ability to maintain clinical measurements within normal limits will improve Outcome: Progressing Problem: Sensory: Goal: Ability to identify factors that increase the pain will improve Outcome: Progressing Goal: Ability to notify healthcare provider of pain before it becomes unmanageable or unbearable will improve Outcome: Progressing Goal: Pain level will decrease Outcome: Progressing Problem: Lack of Knowledge: Goal: Ability to state ways to decrease the risk of falls will improve Outcome: Progressing Problem: Safety: Goal: Will remain free from falls Outcome: Progressing Goal: Will remain free from injury from falls Outcome: Progressing Goal: Will remain free from falls and injury in home environment Outcome: Progressing FIRER * ED Procedure Note - Roxy Barros MD - 08/09/2021 2:50 AM CSTAssociated Order(s): ECG 12 lead Procedure ECG 12 lead Date/Time: 08/09/2021 2:50 AM Performed by: Roxy Barros MD Authorized by: Juice Pineda MD Rate: ECG rate: 65 ECG rate assessment: normal Rhythm: Rhythm: sinus arrhythmia Ectopy: Ectopy: PAC QRS: QRS axis: Normal Conduction: Conduction: normal T waves: T waves: flattening Flattening: AVF Previous ECG: Previous ECG: Unavailable Interpretation: Interpretation: abnormal Roxy Barros MD 08/09/21 0251 FIRER * ED Re-evaluation Note - Roxy Barros MD - 08/08/2021 8:53 PM CST ED Re-evaluation Assumed care of the patient from Dr. Pineda. 51-year-old female with complaint of diarrhea since last night. Patient had 3-4 episodes of dry heaving today. Patient was seen at [place] earlier today and discharged from there at 2:00 p.m.. Ryland was treated for cyclic vomiting with Haldol, Benadryl and IV fluids. No imaging was done at that time. Patient felt better on discharge but symptoms returned so she came here. Vitals: 08/08/21 2156 BP: 109/67 Pulse: 66 Resp: 16 Temp: 37 ??C (98.6 ??F) SpO2: 99% PE: No acute distress, emesis and nausea have resolved. CV: Regular rate rhythm Lungs: Clear to auscultation bilateral Abdomen: Soft, nontender no guarding or rebound Results for orders placed or performed during the hospital encounter of 08/08/21 CBC with auto differential Result Value Ref Range WBC 10.0 (H) 3.8 - 9.9 K/cumm Hgb 11.1 (L) 11.9 - 15.5 g/dL Hct 35.1 (L) 35.6 - 45.5 % Plt 328 150 - 400 K/cumm MPV 10.3 9.1 - 12.3 fL RBC 3.99 3.90 - 5.20 M/cumm MCV 88.0 81.3 - 96.4 fL MCH 27.8 27.1 - 33.3 pg MCHC 31.6 (L) 32.3 - 35.7 g/dL RDW CV 15.2 (H) 11.1 - 14.9 % RDW SD 48.6 (H) 35.7 - 48.1 fL NRBC abs 0.00 0.00 - 0.01 K/cumm Comprehensive metabolic panel Result Value Ref Range Sodium 138 135 - 145 mmol/L Potassium, pl 3.5 3.3 - 4.9 mmol/L Chloride 105 97 - 110 mmol/L CO2 22 22 - 32 mmol/L Anion gap 11 2 - 15 mmol/L BUN 10 8 - 25 mg/dL Creatinine 0.59 (L) 0.60 - 1.10 mg/dL Glucose 128 70 - 199 mg/dL Calcium 9.4 8.5 - 10.3 mg/dL Bilirubin, total 0.2 0.1 - 1.2 mg/dL Protein, pl 7.4 6.5 - 8.5 g/dL Albumin 4.5 3.5 - 5.0 g/dL Alk phos 85 40 - 130 Units/L ALT 10 7 - 45 Units/L AST 21 10 - 45 Units/L Lipase Result Value Ref Range Lipase 34 10 - 99 Units/L Differential, auto Result Value Ref Range Neutrophil abs 8.4 (H) 1.7 - 6.5 K/cumm Imm gran abs 0.0 0.0 - 0.1 K/cumm Lymphocyte abs 0.9 0.8 - 3.3 K/cumm Monocyte abs 0.7 0.2 - 0.8 K/cumm Eosinophil abs 0.0 0.0 - 0.5 K/cumm Basophil abs 0.0 0.0 - 0.1 K/cumm Neutrophil pct 84.0 % Imm gran pct 0.4 % Lymphocyte pct 8.5 % Monocyte pct 6.9 % Eosinophil pct 0.0 % Basophil pct 0.2 % Troponin T high-sensitivity series (baseline, 2hr, 4hr, 6hr) Result Value Ref Range Trop T hs <6 <=14 ng/L eGFR Result Value Ref Range eGFR 105 mL/min/1.[address] A/P: FINDINGS: ?? LOWER CHEST: No significant abnormality is visualized. ?? LIVER: Diffuse hepatic steatosis. Normal size. Small calcification of the lateral right hepatic lobe, likely sequela of healed granulomatous disease. ?? GALLBLADDER: Surgically absent. ?? BILE DUCTS: No intrahepatic or extrahepatic ductal dilatation. ?? PANCREAS: Enhances normally. No peripancreatic inflammatory change. ?? SPLEEN: Enhances normally. Normal size. Small splenule located anteriorly. ?? ADRENALS: Normal. ?? KIDNEYS/URINARY TRACT: No visualized stones. No hydronephrosis or hydroureter. Symmetric enhancement. Small bilateral renal cysts, unchanged from prior. Persistent lobulation of both kidneys, a normal anatomic variant. ?? Small focus of gas within the anti dependent urinary bladder, which also appears mildly thick-walled. In the absence of any recent instrumentation, findings are suspicious for cystitis. Correlation with urinalysis recommended. ?? REPRODUCTIVE: No suspicious abnormality. ?? GI: No evidence of acute gastrointestinal inflammation or obstruction. Short segment jejunal-jejunal intussusception within the left upper quadrant of the abdomen, measuring no greater than 3.5 cm, likely a transient phenomenon. Normal appendix. ?? PERITONEUM: No intraperitoneal free fluid or free air. Tiny fat containing umbilical hernia. ?? RETROPERITONEUM: No suspicious abdominal or pelvic lymphadenopathy. ?? VASCULATURE: No abdominal aortic aneurysm. Mild atheromatous disease of the abdominal aorta and branch vessels. ?? MUSCULOSKELETAL: No suspicious abnormality. ?? OTHER: No other abnormality. IMPRESSION: ?? 1. Possible cystitis. Correlation with urinalysis recommended. 2. Short segment jejunal-jejunal intussusception in the left upper quadrant of the abdomen measures 3.5 cm. Small bowel small bowel intussusceptions measuring less than 5 cm in length are typically a transient phenomenon. 3. Diffuse hepatic steatosis. 4. Postsurgical changes of cholecystectomy. ? THIS IS AN ELECTRONICALLY VERIFIED FINAL REPORT 08/08/2021 10:20 PM - Electronically signed by Rip De La Vega M.D. ?? RT: RT ED Course as of 08/08/21 2350 Time: 08/08 2056 Comment: I discussed case and findings, including treatment plan, evaluations, consults, and lab/imaging results. Dr. Barros agreed to assume care of the patient. By: Kellie Scott Time: 08/08 2300 Comment: Patient was feeling better but now is feeling nauseated again. Abdomen: Soft, no guarding or rebound. Will page surgery to consult on CT scan results. By: Roxy Barros MD Time: 08/08 2311 Comment: [facility] AGUIRRE recommends repeat CT with contrast in 6 hours. Will page hospitalist for admit. By: Roxy Barros MD Time: 08/08 9441 Comment: Dr. Huertas has accepted the patient for admit. By: Roxy Barros MD 51-year-old female presenting with diarrhea, nausea and vomiting x1 day. This is her 2nd hospital visit within 24 hours. Patient also had generalized abdominal pain for 1 week. Labs today are benign.CT scan reveals 3.5 cm jejunal jejunal intussusception and cystitis probable. We have consulted surgery. Nurse practitioner Eyers recommends repeat CT scan in 6 hours. Patient will be admitted for 1. Nausea and vomiting-patient received antiemetics and IV fluid 2. Jejunal intussusception-repeat CT scan in 6 hours with surgical consult Patient is stable for admission at this time. Diagnosis: 1. Abdominal pain, generalized 2. Non-intractable vomiting, presence of nausea not specified, unspecified vomiting type 3. Diarrhea, unspecified type 4. Small bowel intussusception (CMS/HCC) (HCC) Disposition: Admit for observation. Roxy Barros MD 08/09/21 0355 FIRER documented in this encounter Plan of Treatment Upcoming Encounters Date Type Department Care Team (Latest Contact Info) Description 09/07/2024 8:30 AM KILN FIRER Hospital Encounter [facility] [address] [place] [phone] Forest Catherine MD [address] [place] [address] [address] 09/07/2024 8:30 AM KILN FIRER - 09/07/2024 9:00 AM KILN FIRER Surgery [facility] [address] [place] [address] [phone] Forest Catherine MD [address] [place] [address] [address] EGD w/Endo Flip & YI placement Scheduled Procedures Name Priority Associated Diagnoses Date/Ti me ESOPHAGOGASTRODUODENOSCOPY Hiatal hernia Gastroesophageal reflux disease, unspecified whether esophagitis present 09/07/2024 8:30 AM KILN FIRER documented as of this encounter Procedures Procedure Name Priority Date/Time Associated Diagnosis Comments EGFR Routine 08/10/2021 8:20 AM KILN FIRER COMPREHENSIVE METABOLIC PANEL Routine 08/10/2021 8:20 AM KILN FIRER EGFR Routine 08/09/2021 6:48 AM KILN FIRER BASIC METABOLIC PANEL Routine 08/09/2021 6:[address] ABDOMEN PELVIS W CONTRAST ED 08/09/2021 5:12 AM KILN FIRER TROPONIN T HIGH-SENSITIVITY 2-HOUR Timed 08/08/2021 11:29 PM KILN FIRER URINALYSIS AND REFLEX TO MICROSCOPIC AND CULTURE Routine 08/08/2021 11:[address] ABDOMEN PELVIS W CONTRAST ED 08/08/2021 9:51 PM KILN FIRER ECG 12-LEAD Routine 08/08/2021 9:02 PM KILN FIRER TROPONIN T HIGH-SENSITIVITY SERIES (BASELINE, 2HR, 4HR, 6HR) Routine 08/08/2021 8:43 PM KILN FIRER EGFR STAT 08/08/2021 8:43 PM KILN FIRER DIFFERENTIAL AUTO STAT 08/08/2021 8:4 3 PM KILN FIRER CBC WITH AUTO DIFFERENTIAL STAT 08/08/2021 8:43 PM KILN FIRER LIPASE STAT 08/08/2021 8:43 PM KILN FIRER COMPREHENSIVE METABOLIC PANEL STAT 08/08/2021 8:43 PM KILN FIRER documented in this encounter Results * eGFR (08/10/2021 8:20 AM KILN FIRER) eGFR 102 mL/min/1.7 3 m2 [facility] ([place]) Comment: Interpretive Data Reference Interval Normal ?>/= 90 mL/min/1.73m2 Mildly decreased* ? 60 - 89 mL/min/1.73m2 Mildly to moderately decreased ?45 - 59 mL/min/1.73m2 Moderately to severely decreased ??30 - 44 mL/min/1.73m2 Severely decreased ?15 - 29 mL/min/1.73m2 Kidney Failure ?< 15 ??mL/min/1.73m2 *Relative to young adult level Estimated glomerular filtration rate is determined by the CKD-EPI equation recommended by the National Kidney Foundation (KDIGO 2012 Clinical Practice Guideline for the Evaluation and Management of Chronic Kidney Disease. Kidney Intnl Suppl Aug 2012;3:1). The CKD-EPI equation should not be used for patients with unstable renal function and has not been validated in children and those over 70. Current interpretive data was last reviewed 2020 Blood 08/10/2021 8:20 AM KILN FIRER 08/10/2021 8:21 AM KILN FIRER us Amelia Riley MD LAB BLOOD ORDERABLES Final Resul t [facility] ([place]) [facility] Department of Laboratories [place], [place] [id number] * Comprehensive metabolic panel (08/10/2021 8:20 AM KILN FIRER) Sodium 143 135 - 145 mmol/L [facility] ([place]) Potassium, pl 3.4 3.3 - 4.9 mmol/L [facility] ([place]) Chloride 106 97 - 110 mmol/L [facility] ([place]) CO2 23 22 - 32 mmol/L [facility] ([place]) Anion gap 14 2 - 15 mmol/L [facility] ([place]) BUN 15 8 - 25 mg/dL [facility] ([place]) Creatinine 0.63 0.60 - 1.10 mg/dL [facility] ([place]) Glucose 93 70 - 199 mg/dL [facility] ([place]) [...] 1.2 mg/dL [facility] ([place]) Protein, pl 7.1 6.5 - 8.5 g/dL [facility] ([place]) Albumin 4.4 3.5 - 5.0 g/dL [facility] ([place]) Alk phos 78 40 - 130 Units/L [facility] ([place]) ALT 11 7 - 45 Units/L [facility] ([place]) AST 21 10 - 45 Units/L [facility] ([place]) Blood 08/10/2021 8:20 AM KILN FIRER 08/10/2021 8:21 AM KILN FIRER us Amelia Riley MD LAB BLOOD ORDERABLES Final Resul t [facility] ([place]) [facility] Department [place] [address] * eGFR (08/09/2021 6:48 AM KILN FIRER) eGFR 109 mL/min/1.7 3 m2 [facility] ([place]) Comment: Interpretive Data Reference Interval Normal ?>/= 90 mL/min/1.73m2 Mildly decreased* ? 60 - 89 mL/min/1.73m2 Mildly to moderately decreased ?45 - 59 mL/min/1.73m2 Moderately to severely decreased ??30 - 44 mL/min/1.73m2 Severely decreased ?15 - 29 mL/min/1.73m2 Kidney Failure ?< 15 ??mL/min/1.73m2 *Relative to young adult level Estimated glomerular filtration rate is determined by the CKD-EPI equation recommended by the National Kidney Foundation (KDIGO 2012 Clinical Practice Guideline for the Evaluation and Management of Chronic Kidney Disease. Kidney Intnl Suppl Aug 2012;3:1). The CKD-EPI equation should not be used for patients with unstable renal function and has not been validated in children and those over 70. Current interpretive data was last reviewed 2020 Blood 08/09/2021 6:48 AM KILN FIRER 08/09/2021 7:08 AM KILN FIRER us Roxy Barros MD LAB BLOOD ORDERABLES Final Resul t [facility] ([place]) [facility] Department [place] [address] * (ABNORMAL) Basic metabolic panel (08/09/2021 6:48 AM KILN FIRER) Sodium 141 135 - 145 mmol/L [facility] ([place]) Potassium, pl 3.4 3.3 - 4.9 mmol/L [facility] ([place]) Chloride 108 97 - 110 mmol/L [facility] ([place]) CO2 23 22 - 32 mmol/L [facility] ([place]) Anion gap 9 2 - 15 mmol/L [facility] ([place]) BUN 9 8 - 25 mg/dL [facility] ([place]) Creatinine 0.52(L) 0.60 - 1.10 mg/dL [facility] ([place]) Glucose 103 70 - 199 mg/dL [facility] ([place]) Comment: Interpretive Data Fasting glucose >/= [...] interpretive data was last revised 2017. Calcium 8.9 8.5 - 10.3 mg/dL [facility] ([place]) Blood 08/09/2021 6:48 AM KILN FIRER 08/09/2021 7:08 AM KILN FIRER us Roxy Barros MD LAB BLOOD ORDERABLES Final Resul t [facility] ([place]) [facility] Department [place] [address] * CT Abdomen Pelvis W Contrast (08/09/2021 5:12 AM KILN FIRER) Anatomical Region Laterality Modality Body N/A Computed Tomogra phy 08/09/2021 5:28 AM KILN FIRER Narrative 08/09/2021 5:39 AM KILN FIRER EXAM DESCRIPTION: ?? CT ABDOMEN PELVIS W CONTRAST REASON FOR STUDY: ?? Abdominal pain, acute, nonlocalized ?? c/o has had abd pain n/v and unable to keep anything down ?? Prior exam done on 08/08/21 at 9:35 pm ?? For evaluation of small bowel intussusception ?? TECHNIQUE: CT scan of the abdomen and pelvis performed with intravenous and ?? without ??oral contrast using helical scanning technique with dynamic intravenous contrast injection. Reconstructed coronal and sagittal MPR images reviewed. All images stored on PACS. Automated exposure control was used as a dose optimization technique for this examination. CONTRAST TYPE/DOSE: ?? 100mL of IOVERSOL 320 MG IODINE/ML INTRAVENOUS SYRINGE ?? injected via ?? intravenous COMPARISON: ?? 08/08/2021 FINDINGS: LOWER CHEST: ??Lung bases are clear. ??Heart size normal. ??No effusion. LIVER/BILIARY: ??Liver unremarkable. ?? Biliary tree normal in caliber. GALLBLADDER: ??Absent. SPLEEN: ??Normal. PANCREAS: ??Normal. ADRENAL GLANDS: ??Normal. KIDNEYS/URINARY TRACT: ??Right calyceal diverticulum. ??Contrast in the collecting systems. ?? GI: ??Stomach and small bowel appear normal. ??Colon and appendix unremarkable. ?? OTHER ABDOMINAL/PELVIS: ??Major vascular structures are grossly patent and normal in caliber. ??No enlarged lymph node or free fluid. MSK: ??Mild facet arthropathy. ?? BODY WALL: ??Normal. ?? IMPRESSION: Intussusception has resolved. ??No acute abnormality identified. ?? THIS IS AN ELECTRONICALLY VERIFIED FINAL REPORT 08/09/2021 5:39 AM - Electronically signed by ??Boone Hernandez M.D. AR: [place] D: ??08/09/2021 5:39 AM T: ??08/09/2021 5:39 AM Report ID: [id number] Reading Location: ??[id number] Procedure Note Boone Hernandez MD - 08/09/2021 EXAM DESCRIPTION: CT ABDOMEN PELVIS W CONTRAST REASON FOR STUDY: Abdominal pain, acute, nonlocalized c/o has had abd pain n/v and unable to keep anything down Prior examdone on 08/08/21 at 9:35 pm For evaluation of small bowel intussusception TECHNIQUE: CT scan of the abdomen and pelvis performed with intravenousand without oral contrast using helical scanning technique with dynamic intravenous contrast injection. Reconstructed coronal and sagittal MPRimages reviewed. All images stored on PACS. Automated exposure control was used as a dose optimization technique forthis examination. CONTRAST TYPE/DOSE: 100mL of IOVERSOL 320 MG IODINE/ML INTRAVENOUSSYRINGE injected via intravenous COMPARISON: 08/08/2021 FINDINGS: LOWER CHEST: Lung bases are clear. Heart size normal. No effusion. LIVER/BILIARY: Liver unremarkable. Biliary tree normal in caliber. GALLBLADDER: Absent. SPLEEN: Normal. PANCREAS: Normal. ADRENAL GLANDS: Normal. KIDNEYS/URINARY TRACT: Right calyceal diverticulum. Contrast in the collecting systems. GI: Stomach and small bowel appear normal. Colon and appendixunremarkable. OTHER ABDOMINAL/PELVIS: Major vascular structures are grossly patent and normal in caliber. No enlarged lymph node or free fluid. MSK: Mild facet arthropathy. BODY WALL: Normal. IMPRESSION: Intussusception has resolved. No acute abnormality identified. THIS IS AN ELECTRONICALLY VERIFIED FINAL REPORT 08/09/2021 5:39 AM - Electronically signed by Boone Hernandez M.D. AR: [place] Report ID: [id number] Reading Location: [place] [address] us Roxy Barros MD IMG CT PROCEDURES Final Result * (ABNORMAL) Urinalysis reflex to microscopic and culture Urine, clean voided (08/08/2021 11:29 PM KILN FIRER) Color, ur Yellow Yellow [facility] ([place]) Clarity, ur Clear Clear [facility] ([place]) Specific gravity, ur OVER 1.003 - 1.030 [facility] ([place]) pH, urine 7.5 [facility] ([place]) Protein, ur ql Trace Negative [facility] ([place]) Glucose, ur ql Negative Negative [facility] ([place]) Ketones, ur 1+(A) Negative [facility] [...] met. [facility] ([place]) Urine, clean voided 08/08/2021 11:29 PM KILN FIRER 08/08/2021 11:37 PM KILN FIRER Narrative [facility] ([place]) - 08/09/2021 12:58 AM KILN FIRER ?? Urine pH is affected by diet, medications, systemic acid-base disturbances, and renal tubular function. ??pH may affect urinary stone formation. ??For example, urine pH below 6.0 may help reduce the tendency for calcium phosphate stones and pH greater than 6.0 may reduce the tendency for uric acid stone formation. Source: [facility]. Last revised 09-10-2017 us Roxy Barros MD LAB MICROBIOLOGY - GENERAL ORDER KIRA Final Result Performing Organization Address [facility] de Phone Number [facility] ([place]) [address] [place] [address] [place] [address] * Troponin T high-sensitivity 2-hour (08/08/2021 11:29 PM KILN FIRER) Trop T hs <6 <=14 ng/L [facility] ([place]) Comment: Interpretive Data For further hscTnT resources including the diagnostic algorithm and an aid in interpretation, copy and paste this link: https://nrl.testcatalog.org/show/hsTrop Current Interpretive Data last revised 2020. Trop T hs delta 0 ng/L [facility] ([place]) Trop T hs interp Insignificant [facility] ([place]) Blood 08/08/2021 11:2 9 PM KILN FIRER 08/08/2021 11:36 PM KILN FIRER us Juice Pineda MD LAB BLOOD ORDERABLES Final R esult Performing Organization Address [facility] de Phone Number [facility] ([place]) [address] [place] [address] [place] [address] * CT Abdomen Pelvis W Contrast (08/08/2021 9:51 PM KILN FIRER) Anatomical Region Laterality Modality Body N/A Computed Tomogra phy 08/08/2021 10:0 8 PM KILN FIRER Narrative 08/08/2021 10:20 PM KILN FIRER EXAM DESCRIPTION: ?? CT ABDOMEN PELVIS W CONTRAST REASON FOR STUDY: ?? Abdominal pain, acute, nonlocalized ?? h/o A-fib on Eliquis, cyclic vomiting, IBS, anxiety, and depression, s/p cholecystectomy and hernia repair, generalized abdominal pain for 1 week, worsening for 4 days. Associated symptoms include nausea, vomiting, and chest pain, as well as 15 episodes of diarrhea since last night ?? TECHNIQUE: CT scan of the abdomen and pelvis performed with intravenous and ?? without ??oral contrast using helical scanning technique with dynamic intravenous contrast injection. Reconstructed coronal and sagittal MPR images reviewed. All images stored on PACS. ??Automated exposure control was used as a dose optimization technique for this examination. CONTRAST TYPE/DOSE: ?? 100 mL Optiray 320 ?? COMPARISON: ?? 01/25/2020. FINDINGS: ?? LOWER CHEST: ?? No significant abnormality is visualized. LIVER: ?? Diffuse hepatic steatosis. ?Normal size. ?? Small calcification of the lateral right hepatic lobe, likely sequela of healed granulomatous disease. GALLBLADDER: ?? Surgically absent. BILE DUCTS: ?? No intrahepatic or extrahepatic ductal dilatation. PANCREAS: ?? Enhances normally. ??No peripancreatic inflammatory change. ? SPLEEN: ?? Enhances normally. ?? Normal size. ?? Small splenule located anteriorly. ADRENALS: ?? Normal. KIDNEYS/URINARY TRACT: ?? No visualized stones. No hydronephrosis or hydroureter. Symmetric enhancement. ?Small bilateral renal cysts, unchanged from prior. ??Persistent lobulation of both kidneys, a normal anatomic variant. ??Small focus of gas within the anti dependent urinary bladder, which also appears mildly thick-walled. ??In the absence of any recent instrumentation, findings are suspicious for cystitis. ??Correlation with urinalysis recommended. REPRODUCTIVE: ?? No suspicious abnormality. ? GI: ?? No evidence of acute gastrointestinal inflammation or obstruction. ?? Short segment jejunal-jejunal intussusception within the left upper quadrant of the abdomen, measuring no greater than 3.5 cm, likely a transient phenomenon. ??Normal appendix. PERITONEUM: ?? No intraperitoneal free fluid or free air. ?? Tiny fat containing umbilical hernia. RETROPERITONEUM: ?? No suspicious abdominal or pelvic lymphadenopathy. ? VASCULATURE: ?? No abdominal aortic aneurysm. ?? Mild atheromatous disease of the abdominal aorta and branch vessels. MUSCULOSKELETAL: ?? No suspicious abnormality. ? OTHER: ?? No other abnormality. IMPRESSION: ?? 1. ?? Possible cystitis. ??Correlation with urinalysis recommended. 2. ?? Short segment jejunal-jejunal intussusception in the left upper quadrant of the abdomen measures 3.5 cm. ??Small bowel small bowel intussusceptions measuring less than 5 cm in length are typically a transient phenomenon. 3. ?? Diffuse hepatic steatosis. 4. ?? Postsurgical changes of cholecystectomy. THIS IS AN ELECTRONICALLY VERIFIED FINAL REPORT 08/08/2021 10:20 PM - Electronically signed by ??Rip De La Vega M.D. RT: RT D: ??08/08/2021 10:20 PM T: ??08/08/2021 10:20 PM Report ID: [id number] Reading Location: ??[id number] Procedure Note Rip De La Vega MD - 08/08/2021 EXAM DESCRIPTION: CT ABDOMEN PELVIS W CONTRAST REASON FOR STUDY: Abdominal pain, acute, nonlocalized h/o A-fib on Eliquis, cyclic vomiting, IBS, anxiety, and depression, s/p cholecystectomy and hernia repair, generalized abdominal pain for 1 week, worsening for 4 days. Associated symptoms include nausea, vomiting, andchest pain, as well as 15 episodes of diarrhea since last night TECHNIQUE: CT scan of the abdomen and pelvis performed with intravenousand without oral contrast using helical scanning technique with dynamic intravenous contrast injection. Reconstructed coronal and sagittal MPRimages reviewed. All images stored on PACS. Automated exposure control was used as a dose optimization technique for this examination. CONTRAST TYPE/DOSE: 100 mL Optiray 320 COMPARISON: 01/25/2020. FINDINGS: LOWER CHEST: No significant abnormality is visualized. LIVER: Diffuse hepatic steatosis. Normal size. Small calcificationof the lateral right hepatic lobe, likely sequela of healed granulomatous disease. GALLBLADDER: Surgically absent. BILE DUCTS: No intrahepatic or extrahepatic ductal dilatation. PANCREAS: Enhances normally. No peripancreatic inflammatory change. SPLEEN: Enhances normally. Normal size. Small splenule located anteriorly. ADRENALS: Normal. KIDNEYS/URINARY TRACT: No visualized stones. No hydronephrosis or hydroureter. Symmetric enhancement. Small bilateral renal cysts,unchanged from prior. Persistent lobulation of both kidneys, a normalanatomic variant. Small focus of gas within the anti dependent urinary bladder, which also appears mildly thick-walled. In the absence of any recentinstrumentation, findings are suspicious for cystitis. Correlation with urinalysis recommended. REPRODUCTIVE: No suspicious abnormality. GI: No evidence of acute gastrointestinal inflammation or obstruction. Short segment jejunal-jejunal intussusception within the left upperquadrant of the abdomen, measuring no greater than 3.5 cm, likely a transient phenomenon. Normal appendix. PERITONEUM: No intraperitoneal free fluid or free air. Tiny fatcontaining umbilical hernia. RETROPERITONEUM: No suspicious abdominal or pelvic lymphadenopathy. VASCULATURE: No abdominal aortic aneurysm. Mild atheromatous diseaseof the abdominal aorta and branch vessels. MUSCULOSKELETAL: No suspicious abnormality. OTHER: No other abnormality. IMPRESSION: 1. Possible cystitis. Correlation with urinalysis recommended. 2. Short segment jejunal-jejunal intussusception in the left upperquadrant of the abdomen measures 3.5 cm. Small bowel small bowel intussusceptions measuring less than 5 cm in length are typically a transient phenomenon. 3. Diffuse hepatic steatosis. 4. Postsurgical changes of cholecystectomy. THIS IS AN ELECTRONICALLY VERIFIED FINAL REPORT 08/08/2021 10:20 PM - Electronically signed by Rip De La Vega M.D. RT: RT Report ID: [id number] Reading Location: [place] [address] Juice Pineda MD IMG CT PROCEDURES Final Resu lt * ECG 12 lead (08/08/2021 9:02 PM KILN FIRER) 08/08/2021 9:02 PM KILN FIRER Narrative [facility] - 08/09/2021 1:19 PM KILN FIRER Vent Rate: 65 bpm RR Interval: 916 msec TN Interval: 133 msec QRS Duration: 81 msec QT Interval: 425 msec QTC Interval: 437 msec P-R-T [place]: 142 - 173 - 165 degrees SINUS RHYTHM WITH FREQUENT SUPRAVENTRICULAR PREMATURE COMPLEXES ARM LEADS REVERSED ??[INVERTED P AND QRS IN I] ABNORMAL RHYTHM ECG Electronically Signed By: Dr Ryan [place] us Juice Pineda MD ECG ORDERABLES Final Result [facility] * eGFR (08/08/2021 8:43 PM KILN FIRER) eGFR 105 mL/min/1.7 3 m2 [facility] ([place]) Comment: Interpretive Data Reference Interval Normal ?>/= 90 mL/min/1.73m2 Mildly decreased* ? 60 - 89 mL/min/1.73m2 Mildly to moderately decreased ?45 - 59 mL/min/1.73m2 Moderately to severely decreased ??30 - 44 mL/min/1.73m2 Severely decreased ?15 - 29 mL/min/1.73m2 Kidney Failure ?< 15 ??mL/min/1.73m2 *Relative to young adult level Estimated glomerular filtration rate is determined by the CKD-EPI equation recommended by the National Kidney Foundation (KDIGO 2012 Clinical Practice Guideline for the Evaluation and Management of Chronic Kidney Disease. Kidney Intnl Suppl Aug 2012;3:1). The CKD-EPI equation should not be used for patients with unstable renal function and has not been validated in children and those over 70. Current interpretive data was last reviewed 2020 Blood 08/08/2021 8:43 PM KILN FIRER 08/08/2021 8:46 PM KILN FIRER us Juice Pineda MD LAB BLOOD ORDERABLES Final R esult [facility] ([place]) [facility] Department [place] [address] * Troponin T high-sensitivity series (baseline, 2hr, 4hr, 6hr) (08/08/2021 8:43 PM KILN FIRER) Trop T hs <6 <=14 ng/L [facility] ([place]) Comment: Interpretive Data For further hscTnT resources including the diagnostic algorithm and an aid in interpretation, copy and paste this link: https://nrl.testcatalog.org/show/hsTrop Current Interpretive Data last revised 2020. Blood 08/08/2021 8:43 PM KILN FIRER 08/08/2021 9:38 PM KILN FIRER us Juice Pineda MD LAB BLOOD ORDERABLES Final R esult [facility] ([place]) [address] [facility] Department [place] [address] * (ABNORMAL) Differential, auto (08/08/2021 8:43 PM KILN FIRER) Neutrophil abs 8.4(H) 1.7 - 6.5 K/cumm [facility] ([place]) Imm gran abs 0.0 0.0 - 0.1 K/cumm [facility] ([place]) Lymphocyte abs 0.9 0.8 - 3.3 K/cumm [facility] ([place]) Monocyte abs 0.7 0.2 - 0.8 K/cumm [facility] ([place]) Eosinophil abs 0.0 0.0 - 0.5 K/cumm [facility] ([place]) Basophil abs 0.0 0.0 - 0.1 K/cumm [facility] ([place]) Neutrophil pct 84.0 % [facility] ([place]) Comment: Interpretive [...] was last revised on 2017. Lymphocyte pct 8.5 % [facility] ([place]) Comment: Interpretive Data Percent cell count reference ranges are not reported, since discordance with absolute values may lead to misinterpretation of CBC data. Current Interpretive Data was last revised on 2017. Monocyte pct 6.9 % [facility] ([place]) Comment: Interpretive Data Percent cell count reference ranges are not reported, since discordance with absolute values may lead to misinterpretation of CBC data. Current Interpretive Data was last revised on 2017. Eosinophil pct 0.0 % [facility] ([place]) Comment: Interpretive Data Percent cell count reference ranges are not reported, since discordance with absolute values may lead to misinterpretation of CBC data. Current Interpretive Data was last revised on 2017. Basophil pct 0.2 % [facility] ([place]) Comment: Interpretive Data Percent cell count reference ranges are not reported, since discordance with absolute values may lead to misinterpretation of CBC data. Current Interpretive Data was last revised on 2017. Blood 08/08/2021 8:43 PM KILN FIRER 08/08/2021 8:46 PM KILN FIRER us Juice Pineda MD LAB BLOOD ORDERABLES Final R esult Performing Organization Address City/[facility]/ZIP Co de Phone Number [facility] ([place]) [address] [facility] [place] [address] * Lipase (08/08/2021 8:43 PM KILN FIRER) Lipase 34 10 - 99 Units/L [facility] ([place]) Blood 08/08/2021 8:43 PM KILN FIRER 08/08/2021 8:46 PM KILN FIRER us Juice Pineda MD LAB BLOOD ORDERABLES Final R esult Performing Organization Address [facility] Co de Phone Number [facility] ([place]) [address] [facility] [place] [address] * (ABNORMAL) Comprehensive metabolic panel (08/08/2021 8:43 PM KILN FIRER) Sodium 138 135 - 145 mmol/L [facility] ([place]) Potassium, pl 3.5 3.3 - 4.9 mmol/L [facility] ([place]) Chloride 105 97 - 110 mmol/L [facility] ([place]) CO2 22 22 - 32 mmol/L [facility] ([place]) Anion gap 11 2 - 15 mmol/L [facility] ([place]) BUN 10 8 - 25 mg/dL [facility] ([place]) Creatinine 0.59(L) 0.60 - 1.10 mg/dL [facility] ([place]) Glucose 128 70 - 199 mg/dL [facility] ([place]) [...] interpretive data was last revised 2017. Calcium 9.4 8.5 - 10.3 mg/dL [facility] ([place]) Bilirubin, total 0.2 0.1 - 1.2 mg/dL [facility] ([place]) Protein, pl 7.4 6.5 - 8.5 g/dL [facility] ([place]) Albumin 4.5 3.5 - 5.0 g/dL [facility] ([place]) Alk phos 85 40 - 130 Units/L [facility] ([place]) ALT 10 7 - 45 Units/L [facility] ([place]) AST 21 10 - 45 Units/L [facility] ([place]) Blood 08/08/2021 8:43 PM KILN FIRER 08/08/2021 8:46 PM KILN FIRER Juice Pineda MD LAB BLOOD ORDERABLES Final R esult [facility] ([place]) [address] [facility] Department [place] [address] * (ABNORMAL) CBC with auto differential (08/08/2021 8:43 PM KILN FIRER) WBC 10.0(H) 3.8 - 9.9 K/cumm [facility] ([place]) Hgb 11.1(L) 11.9 - 15.5 g/dL [facility] ([place]) Hct 35.1(L) 35.6 - 45.5 % [facility] ([place]) Plt 328 150 - 400 K/cumm [facility] ([place]) MPV 10.3 9.1 - 12.3 fL [facility] ([place]) RBC 3.99 3.90 - 5.20 M/cumm [facility] ([place]) MCV 88.0 81.3 - 96.4 fL [facility] ([place]) MCH 27.8 27.1 - 33.3 pg [facility] ([place]) MCHC 31.6(L) 32.3 - 35.7 g/dL [facility] ([place]) RDW CV 15.2(H) 11.1 - 14.9 % [facility] ([place]) RDW SD 48.6(H) 35.7 - 48.1 fL [facility] ([place]) NRBC abs 0.00 0.00 - 0.01 K/cumm [facility] ([place]) Blood 08/08/2021 8:43 PM KILN FIRER 08/08/2021 8:46 PM KILN FIRER us Juice Pineda MD LAB BLOOD ORDERABLES Final R esult [facility] ([place]) [address] [facility] Department [place] [address] documented in this encounter Visit Diagnoses Diagnosis Intussusception intestine (CMS/HCC) (FORMERLY [facility])- Primary Intussusception Abdominal pain, generalized Non-intractable vomiting, presence of nausea not specified, unspecified vomiting type Diarrhea, unspecified type Small bowel intussusception (CMS/HCC) ([facility]) Abdominal pain, generalized Hypertension Unspecified essential hypertension Irritable bowel syndrome with diarrhea Irritable bowel syndrome Migraine headache Migraine, unspecified, without mention of intractable migraine without mention of status migrainosus Cyclic vomiting syndrome Persistent vomiting Atrial fibrillation (CMS/HCC) (HCC) Atrial fibrillation Essential tremor Bipolar affect, depressed (HCC) Bipolar I disorder, most recent episode (or current) depressed, unspecified Hiatal hernia Diaphragmatic hernia without mention of obstruction or gangrene Gastroesophageal reflux disease, unspecified whether esophagitis present documented in this encounter Admitting Diagnoses Diagnosis Abdominal pain, generalized documented in this encounter Administered Medications Inactive Administered Medications - up to 3 most recent administrations Medication Order MAR Action Action Date Dose Rate Site apixaban (ELIQUIS) tablet 5 mg 5 mg, oral, 2 times daily, First dose on Thu08/09/21 at 2100, Nurse to discontinue heparin infusion order and associated bolus at first administration of apixaban using ? order condition met? order source, Indications: atrial fibrillationIndications:atrial fibrillation Given 08/10/2021 8:31 AM KILN FIRER 5 mg Given 08/09/2021 8:19 PM KILN FIRER 5 mg dicyclomine (BENTYL) capsule 20 mg 20 mg, oral, 2 times daily, First dose on Thu08/09/21 at 2100 Given 08/10/2021 8:31 AM KILN FIRER 20 mg Given 08/09/2021 8:19 PM KILN FIRER 20 mg famotidine (PEPCID) tablet 20 mg 20 mg, oral, 2 times daily, First dose on Thu08/09/21 at 1600, Medication, pantoprazole 40 mg , changed from PPI to H2 antagonist famotidine 20 mg po bid per protocol for indication of stress ulcer prophylaxis., Indications: Prevention of Stress UlcerIndications:Prevention of Stress Ulcer Given 08/10/2021 8:31 AM KILN FIRER 20 mg Given 08/09/2021 4:14 PM KILN FIRER 20 mg fentaNYL (SUBLIMAZE) preservative free injection 50 mcg 50 mcg, intravenous, Once, On Anayeli 08/08/21 at 2054, For 1 dose Given 08/08/2021 9:33 PM KILN FIRER 50 mcg flecainide (TAMBOCOR) tablet 50 mg 50 mg, oral, 2 times daily, First dose on Thu08/09/21 at 2100 Given 08/10/2021 8:31 AM KILN FIRER 50 mg Given 08/09/2021 8:19 PM KILN FIRER 50 mg ioversoL (OPTIRAY 320) intravenous syringe 100 mL 100 mL, intravenous, Once in imaging, contrast, Starting on Anayeli 08/08/21 at 2152, For 1 dose Contrast Given 08/08/2021 9:52 PM KILN FIRER 100 mL ioversoL (OPTIRAY 320) intravenous syringe 100 mL 100 mL, intravenous, Once in imaging, contrast, Starting on Thu08/09/21 at 0512, For 1 dose Contrast Given 08/09/2021 5:13 AM KILN FIRER 100 mL metoclopramide (REGLAN) tablet 10 mg 10 mg, oral, 3 times daily before meals, First dose on Thu08/09/21 at 1500 Given 08/10/2021 2:10 PM KILN FIRER 10 mg Given 08/10/2021 8:31 AM KILN FIRER 10 mg Given 08/09/2021 4:14 PM KILN FIRER 10 mg metoprolol XL (TOPROL-XL) extended release tablet 25 mg 25 mg, oral, Daily, First dose on Thu08/09/21 at 1900, Hold if systolic blood pressure < 100, or heart rate < 60. Tablets that are scored may be split, but do not crush, chew, dissolve, open or otherwise manipulate tablet/capsule. Given 08/10/2021 8:31 AM KILN FIRER 25 mg Given 08/09/2021 6:45 PM KILN FIRER 25 mg morphine injection 2 mg 2 mg, intravenous, Administer over 4 Minutes, Every 3 hours PRN, 1st line for pain, Starting on Thu08/09/21 at 0102, Indications: PainIndications:Pain Given 08/09/2021 4:41 AM KILN FIRER 2 mg Given 08/09/2021 1:44 AM KILN FIRER 2 mg ondansetron (ZOFRAN) injection 4 mg 4 mg, intravenous, Administer over 2 Minutes, Once, On Anayeli 08/08/21 at 2054, For 1 dose Given 08/08/2021 9:30 PM KILN FIRER 4 m g ondansetron (ZOFRAN) injection 4 mg 4 mg, intravenous, Administer over 2 Minutes, Every 6 hours PRN, nausea, vomiting, Starting on Thu08/09/21 at 0148 Given 08/09/2021 2:14 PM KILN FIRER 4 mg Given 08/09/2021 3:45 AM KILN FIRER 4 mg ondansetron (ZOFRAN) tablet 4 mg 4 mg, oral, Every 6 hours, First dose on Thu08/09/21 at 1800 Given 08/10/2021 2:10 PM KILN FIRER 4 mg Given 08/10/2021 6:44 AM KILN FIRER 4 mg Given 08/10/2021 12:01 AM KILN FIRER 4 mg sodium chloride 0.9% bolus 1,000 mL 1,000 mL, intravenous, Once, On Anayeli 08/08/21 at 2054, For 1 dose New Bag 08/08/2021 9:49 PM KILN FIRER 1,000 mL sodium chloride 0.9% infusion 75 mL/hr, intravenous, Continuous, Starting on Anayeli 08/08/21 at 2330, For 12 hours Rate/Dose Verify 08/09/2021 8:10 AM KILN FIRER 75 mL/hr 75 mL/hr New Bag 08/09/2021 1:27 AM KILN FIRER 75 mL/hr 75 mL/hr documented in this encounter Discontinued Medications Medication Sig Discontinue Reason Start Date End Da te busPIRone (BUSPAR) 15 mg tabletIndications:Genera lized Anxiety Disorder Take 15 mg by mouth 2 (two) times a day. Therapy completed 08/09/2021 calcium carbonate-mag hydroxid 400-135 mg/5 mL suspension Take by mouth 4 (four) times a day. Therapy completed 08/09/2021 ciprofloxacin (CIPRO) 500 mg tablet Therapy completed 05/21/2018 08/09/2021 clonazePAM (KlonoPIN) 0.5 mg tabletIndications:Panic Disorder Take 0.5 mg by mouth as needed for anxiety. Therapy completed 08/09/2021 desvenlafaxine 50 mg tablet extended release 24hrIndications:major depressive disorder Take 50 mg by mouth daily. Therapy completed 08/09/2021 divalproex ER (DEPAKOTE ER) 500 mg 24 hr tabletIndications:Bipola r Disorder Take 500 mg by mouth daily. Therapy completed 08/09/2021 naproxen (ANAPROX,ALEVE) 220 mg tablet Take by mouth as needed for pain. Therapy completed 08/09/2021 naproxen-diphenhydramine 220-25 mg tablet Take by mouth. Therapy completed 08/09/2021 primidone (MYSOLINE) 50 mg tabletIndications:Essent ial tremor 1/4 tab po qhs 1 week, 1/2 tab qhs 1 week, 1/4 tab qam & 1/2 tab qhs 1 week, 1/2 tab bid 1 w, 1/2 tab qam, 1 tab qhs1 week, then 1 tab bid Therapy completed 10/12/2018 08/09/2021 venlafaxine XR (EFFEXOR-XR) 150 mg 24 hr capsule TK 1 C PO D Therapy completed 05/13/2018 08/09/2021 documented as of this encounter Historical Medications * This list may reflect changes made after this encounter. metoprolol XL (TOPROL-XL) 25 mg extended release tablet Take 1 tablet (25 mg total) by mouth daily apixaban (ELIQUIS) 5 mg tablet Take 1 tablet (5 mg total) by mouth 2 (two) times a day dicyclomine (BENTYL) 10 mg capsule Take 20 mg by mouth 2 (two) times a day 09/24/2021 flecainide (TAMBOCOR) 50 mg tablet Take 50 mg by mouth 2 (two) times a day 09/02/[address] (PROTONIX) 40 mg EC tablet Take 40 mg by mouth every 12 (twelve) hours 09/24/2021 added in this encounter Active and Recently Administered Medications Times are shown in KILN FIRER. Scheduled Medication Order 08/08/2021 08/09/2021 08/10/2021 apixaban (ELIQUIS) tablet 5 mg 5 mg, oral, 2 times daily, First dose on Thu08/09/21 at 2100, Nurse to discontinue heparin infusion order and associated bolus at first administration of apixaban using ? order condition met? order source, Indications: atrial fibrillation 2019 (Given - Provider: Victoria Pope RN) 0831 (Given - Provider: Brittny Jay RN) dicyclomine (BENTYL) capsule 20 mg 20 mg, oral, 2 times daily, First dose on Thu08/09/21 at 2100 2019 (Given - Provider: Victoria Pope RN) 0831 (Given - Provider: Brittny Jay RN) famotidine (PEPCID) tablet 20 mg 20 mg, oral, 2 times daily, First dose on Thu08/09/21 at 1600, Medication, pantoprazole 40 mg , changed from PPI to H2 antagonist famotidine 20 mg po bid per protocol for indication of stress ulcer prophylaxis., Indications: Prevention of Stress Ulcer 161 (Given - Provider: Nkechi Hernandez RN) 0831 (Given - Provider: Brittny Jay RN) fentaNYL (SUBLIMAZE) preservative free injection 50 mcg (COMPLETED) 50 mcg, intravenous, Once, On Anayeli 08/08/21 at 205, For 1 dose 2132 (Given - Provider: Nicolás Goodwin RN) flecainide (TAMBOCOR) tablet 50 mg 50 mg, oral, 2 times daily, First dose on Thu08/09/21 at 2100 2019 (Given - Provider: Victoria Pope RN) 0831 (Given - Provider: Brittny Jay, KIET) metoclopramide (REGLAN) tablet 10 mg 10 mg, oral, 3 times daily before meals, First dose on Thu08/09/21 at 1500 1614 (Given - Provider: Nkechi Hernandez RN) 0831 (Given - Provider: Brittny Jay RN)1410 (Given - Provider: Brittny Jay RN) metoprolol XL (TOPROL-XL) extended release tablet 25 mg 25 mg, oral, Daily, First dose on Thu08/09/21 at 1900, Hold if systolic blood pressure < 100, or heart rate < 60. Tablets that are scored may be split, but do not crush, chew, dissolve, open or otherwise manipulate tablet/capsule. 1845 (Given - Provider: Nkechi Hernandez RN) 0831 (Given - Provider: Brittny Jay RN) ondansetron (ZOFRAN) injection 4 mg (COMPLETED) 4 mg, intravenous, Administer over 2 Minutes, Once, On Anayeli 08/08/21 at 2053, For 1 dose 2129 (Given - Provider: Nicolás Goodwin RN) ondansetron (ZOFRAN) tablet 4 mg 4 mg, oral, Every 6 hours, First dose on Thu08/09/21 at 1800 1845 (Given - Provider: Nkechi Hernandez RN) 0001 (Given - Provider: Victoria Pope RN)0644 (Given - Provider: Victoria Pope, KIET)1410 (Given - Provider: Brittny Jay RN) sodium chloride 0.9% bolus 1,000 mL (COMPLETED) 1,000 mL, intravenous, Once, On Anayeli 08/08/21 at 2053, For 1 dose 2148 (New Bag - Provider: Nicolás Goodwin RN) 0005 (Stopped - Provider: Nicolás Goodwin RN) Continuous Medication Order 08/08/2021 08/09/2021 08/10/2021 sodium chloride 0.9% infusion () 75 mL/hr, intravenous, Continuous, Starting on Anayeli 08/08/21 at 2330, For 12 hours 0127 (New Bag - Provider: Della Gates RN)0810 (Rate/Dose Verify - Provider: Nkechi Hernandez, RN) PRN Medication Order 08/08/2021 08/09/2021 08/10/2021 ioversoL (OPTIRAY 320) intravenous syringe 100 mL (COMPLETED) 100 mL, intravenous, Once in imaging, contrast, Starting on Anayeli 08/08/21 at 2152, For 1 dose 2152 (Contrast Given - Provider: Shanel De Leon, RT - Comment: /2023) ioversoL (OPTIRAY 320) intravenous syringe 100 mL (COMPLETED) 100 mL, intravenous, Once in imaging, contrast, Starting on 08/09/21 at 0512, For 1 dose 0513 (Contrast Given - Provider: Shanel De Leon, RT - Comment: /2023) morphine injection 2 mg 2 mg, intravenous, Administer over 4 Minutes, Every 3 hours PRN, 1st line for pain, Starting on 08/09/21 at 0102, Indications: Pain 0144 (Given - Provider: Della Gates RN)0441 (Given - Provider: Della Gates RN) ondansetron (ZOFRAN) injection 4 mg 4 mg, intravenous, Administer over 2 Minutes, Every 6 hours PRN, nausea, vomiting, Starting on 08/09/21 at 0148 0345 (Given - Provider: Della Gates RN)1414 (Given - Provider: Nkechi Hernandez, KIET) ondansetron (ZOFRAN) tablet 4 mg 4 mg, oral, 3 times daily PRN, nausea, vomiting, Starting on 08/10/21 at 1323 documented in this encounter Orders Medications Ordered That Rg ht Not Have Been Administered Count Last Ordered Date First Ordered Date ondansetron (ZOFRAN) tablet 4 mg 1 08/10/[address] (PROTONIX) e xtended release tablet 40 mg 1 08/09/2021 Nursing Count Last Ordered Date First Orde red Date FOLLOW UP WITH ESTABLISHED PROVIDER 1 08/09 Consult Count Last Ordered Date First Orde red Date IP CONSULT TO GENERAL SURGERY 1 08/09/2021 CORE MEASURES Count Last Ordered Date First Ord ered Date REASON FOR NO VTE PROPHYLAXI S - HOSPITAL ADMISSION - MEDICATIONS 1 08/09/2021 ADT Patient Update Count Last Ordered Date Firs t Ordered Date ED IP DECISION TO ADMIT 1 08/08/2021 documented in this encounter Care Teams Computerized Mill Recorder Relationship Specialty Start Date End Date Parmjit Dai MD PCP - General 12/31/20 Mere Landa NP Nurse Practitioner 02/07/20 Tico Burton MD Surgeon General Surgery 08/09/21 documented as of this encounter
--- OUTSIDE RECORDS SUMMARY | 2024-08-16 04:35 | XMS_ITS | Encounter Summary ---
Author Organization [facility] Healthcare Address [address] [place] [address] Care Team Providers Care General Operator Name Role Phone Sumit Bose MD Primary Care Provider Encounter Details Date Type Department Care Team (Late st Contact Info) Description 10/07/2018 10:00 AM APRN Ancillary Procedure [facility] Outside Films Social History Tobacco Use Types Packs/Day Years Used Date Smoking Tobacco: Former Cigarettes 1 984 - 2000 Smokeless Tobacco: Never Comments:off and on Alcohol Use Standard Drinks/Week Comments Yes 0 (1 standard drink = 0.6 oz pur e alcohol) on occasion Comments No Sex and Gender Information Value Date Recorded Sex Assigned at Not on file Legal Sex Female 10:06 AM APRN Gender Identity Female 06/17/2024 7:02 AM CDT Sexual Orientation Not on file documented as of this encounter Plan of Treatment Upcoming Encounters Date Type Department Care Team (Latest Contact Info) Description 09/07/2024 8:30 AM APRN Hospital Encounter [facility] [address] [place] [phone] Forest Catherine MD [address] [place] [address] 09/07/2024 8:30 AM APRN - 09/07/2024 9:00 AM APRN Surgery [facility] [address] [place] [address] [place] [phone] Forest Catherine MD [address] [place] [address] EGD w/Endo Flip & YI placement Scheduled Procedures Name Priority Associated Diagnoses Date/Ti me ESOPHAGOGASTRODUODENOSCOPY Hiatal hernia Gastroesophageal reflux disease, unspecified whether esophagitis present 09/07/2024 8:30 AM APRN documented as of this encounter Procedures Procedure Name Priority Date/Time Associated Diagnosis Comments BREAST IMAGING OUTSIDE REFERENCE Routine 10/07/2018 10:00 AM APRN documented in this encounter Results * Breast Imaging Outside Reference (10/07/2018 10:00 AM APRN) Narrative [facility] - 05/30/2022 9:52 AM CDT This order has been auto-finalized and does not contain a result. us Not In File Miscellaneous IMG MAMMO PROCEDURES F inal Result [facility] documented in this encounter Visit Diagnoses Not on filedocumented in this encounter Care Teams General Operator Relationship Specialty Start Date End Date Sumit Bose MD [address] [facility] [address] [place] [address] PCP - General Gastroenterology 04/15/17 10/11/18 documented as of this encounter
--- OUTSIDE RECORDS SUMMARY | 2024-08-16 04:35 | XMS_ITS | Encounter Summary ---
Author Organization [facility] Healthcare Address [address] [place] [address] Care Team Providers Care Range Aide Name Role Phone Mere Landa NP Unavailable [phone] Parmjit Ewing MD Primary Care Provider [phone] Tico Burton MD Unavailable [phone] Reason for Visit * Reason Comments Abdominal Pain Vomiting Nausea Encounter Details Date Type Department Care Team (Latest Contact Info) Description 12/18/2021 2:35 PM CDT - 12/18/2021 3:10 PM CDT Surgery [facility] [address] [place] [address] Germania Sorto MD [address] [place] [address] ESOPHAGOGASTRODUODENOSCOPY BIOPSY Surgery Details Date/Time Status Location OR Service Patient Class Case Class Case Type Trauma Case? 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[employer] ADV[employer] Gender Identity Female 06/17/2024 7:02 AM CDT Sexual Orientation Not on file documented as of this encounter Last Filed Vital Signs Vital Sign Reading Time Taken Comments Blood Pressure 101/57 12/18/2021 2:09 PM CDT Pulse 63 12/18/2021 2:09 PM CDT Temperature 36.8 ??C (98.3 ??F) 12/18/2021 2:09 PM CD T Respiratory Rate 16 12/18/2021 2:09 PM CDT Oxygen Saturation 100% 12/18/2021 2:09 PM CDT Inhaled Oxygen Concentration - - Weight 64 kg (141 lb) 12/18/2021 1:17 PM CDT Height 162.6 cm (5' 4 ) 12/18/2021 1:17 PM CDT Body Mass Index 24.2 12/18/2021 1:17 PM CDT documented in this encounter Discharge Summaries * Joshua Pearson MD - 12/20/2021 12:10 PM CDT Inpatient Discharge Summary Patient Name - Sarahy Mays Patient Age - 51 yrs Patient - [id number] [facility] - [id number] Document Creation Date: 12/20/2021 Admitting Provider, MD: Cheyenne Benavides MD Discharge Provider, : Naz Enriquez MD Primary Care Physician at Discharge: Parmjit Ewing MD [phone] Admission Date: 12/17/2021 Discharge Date/time: 12/20/2021 Admission Location: [facility] LOS - LOS: 2 days DETAILS OF HOSPITAL STAY Hospital Problems/Diagnoses Active Problems: Cyclic vomiting syndrome Irritable bowel syndrome with both constipation and diarrhea Hypertension Atrial fibrillation ([facility]) ([facility]) Migraine headache Abdominal pain, generalized Bipolar affect, depressed ([facility]) ([facility]) Marijuana use Reason for Hospitalization: CC: nausea [...] both constipation and diarrhea Hypertension Atrial fibrillation ([facility]) ([facility]) Migraine headache Abdominal pain, generalized Bipolar affect, depressed ([facility]) ([facility]) Marijuana use Resolved Problems: No resolved hospital [...] UDS: Positive for cannabinoid Bipolar affect, depressed ([facility]) ([facility]) Assessment & Plan Patient has history of [...] headache Assessment & Plan OnTopamax Atrial fibrillation ([facility]) ([facility]) Assessment & Plan Patient has history of [...] known as: 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 nortriptyline 25 mg capsule Time Spent [...] 12:00 PM [facility] Nuc Med [facility] Main 01/14/2022 1:00 PM [facility] Nuc Med [facility] Main 01/14/2022 2:00 PM [facility] Nuc Med [facility] Main 01/14/2022 3:00 PM [facility] Nuc Med [facility] Main 01/14/2022 4:00 PM [facility] Nuc Med [facility] Main 01/28/2022 10:15 AM Richard Gracia NP [facility] 01/29/2022 9:30 AM Richard Gracia NP [facility] Contact Information for Follow-ups Parmjit Ewing MD Specialty: Family Medicine Relationship: PCP - General [address] [facility] [address] [place] [address] Next Steps: Follow up Instructions: Please follow up with your PCP after hospital discharge. Call to make an appointment. Questions: Instructions for follow-up (appointment date and time): Please follow up with your PCP after hospital discharge. Call to make an appointment. To provider: PARMJIT EWING Ahmad A., MD Specialty: Gastroenterology, Internal Medicine [address] [facility] [address] [place] [address] Next Steps: Follow up Instructions: call to make a follow up in 6-8 weeks Please schedule an appointment with the following provider(s): Parmjit Ewing MD [address] [place] [address] [address] [place] [address] Please follow up with your PCP after hospital discharge. Call to make an appointment. Germania Sorto MD [address] [place] [address] [address] [place] [address] Follow up call to make a follow [...] Parmjit Herrera M.D. BB: BÁRBARA Report ID: [id number] Reading Loca tion: [id number] Recent Labs: Recent Labs Lab Units 12/19/2130212/17/212111 [...] mg/dL 11 9 CREATININE mg/dL 0.79 0.70 [id number] mL/min/1.73 m2 89 103 GLUCOSE mg/dL 99 [...] concerns after discharge please call [facility] at [phone]. Active LDAs (If Blank, None Found): Patient [...] and discussed the case with the resident. Melitonave reviewed the resident's note and agree with [...] MD Director of Family Medicine Inpatient Services [place], [facility] Family Medicine Residency [facility] documented in this encounter Discharge Instructions * Discharge Instr - Other Orders* Julia Pulido RN - 12/20/2021 11:44 AM CDT If you have any questions or concerns after discharge please call [facility] at [phone]. * Attachments The following attachments cannot be sent through Care Everywhere. * Nortriptyline (By mouth) (Spanish) documented in this encounter Medications at Time [...] total) by mouth nightly 30 capsule 12/20/2021 3 nortriptyline (PAMELOR) 25 mg capsule [...] General Medicine Daily Progress [facility] Sarahy Mays [id number] Admitting Provider: Cheyenne Benavides MD Primary Care Physician:Parmjit Ewing MD [phone] Attending Physician: Naz Enriquez MD Today's Date: 12/19/2021 Time: 4:30 PM Admission Date: 12/17/2021 NOMAN Mays is a 51 y.o. female with [...] MERON Germania Sorto MD 10 mL at 12/19/21 [...] Parmjit Herrera M.D. BB: BÁRBARA Report ID: [id number] Reading Location: [place] [address] Microbiology 12/18/21 1355 Influenza A/B, RSV, and [...] constipation and diarrhea Hypertension Atrial fibrillation (CMS/HCC) ([facility]) Migraine headache Abdominal pain, generalized Bipolar affect, depressed (CMS/HCC) ([facility]) Marijuana use Resolved Problems: No resolved hospital [...] effects and interactions with other medications. Says shewill take tonight. - UDS screen positive for cannabinoids: Have advised to stop - Nortriptyline per GI - p.r.n. Haldol, Zofran, hydroxyzine - Protonix - Diet progression as tolerated - GI on consult appreciate recommendations Marijuana use Assessment & Plan Patient admits to daily marijuana use. Possibly contributing to cyclic vomiting. Have advised pt tostop smoking. - UDS: Positive for cannabinoid Bipolar affect, depressed ([facility]) ([facility]) Assessment & Plan Patient has history of [...] & Plan Started home Topamax Atrial fibrillation ([facility]) ([facility]) Assessment & Plan Patient has history of [...] with voice recognition software. Occasional wrong-word or 'washc-g-rrhh' substitutions may have occurred due to the inherent limitations of voice recognition software. Read the chart carefully and recognize, using context, where substitutions have occurred. RAJIV Pearson MD Family Medicine PGY-1 [facility] Family Medicine Residency 12/19/2021 4:30 PM Cosigned [...] MD Director of Family Medicine Inpatient Services [place], [facility] Medicine Residency [facility] * Germania Sorto MD - 12/19/2021 2:37 [...] office in 6-8 weeks Voice recognition software [employer] Fluency Direct was used dictate and transcribe this document. Finisher Denture variances may occur. Despite proofreading, typographical errors may occur. Germania Sorto MD * Christa Abdullahi RN - 12/19/2021 12:26 PM CDT CM Initial Assessment Interview Note Information Obtained From: Patient (12/19/21 1223) Admission Source: home Impression: nausea and vomiting Plan Includes: evaluation Primary Source of Transportation: Does the patient need discharge transport arranged?: No (12/18/21 9940) Health Insurance Coverage: [facility] Navigating Cancer Prescription Coverage: yes Pharmacy: [facility] Primary Care Provider: Parmjit Ewing MD Prior [...] night. 4. Follow-up progress. Voice recognition software Tuan[employer] Direct was used dictate and transcribe this document. Finisher Denture variances may occur. Despite proofreading, typographical errors may occur. Germania Sorto MD documented in this encounter H&P Notes * Joshua Pearson MD - 12/18/2021 4:52 PM CDT Images from the original note were not included. History and Physical Hospitalist services [facility] Admitting Provider: Cheyenne Benavides MD Primary Care Physician:Parmjit Ewing MD [phone] Attending Physician: Naz Enriquez MD Admission Date: 12/17/2021 Sarahy Mays [id number] SUBJECTIVE Sarahy Mays is a 51 y.o. [...] ??? Arthritis ??? Bipolar affect, depressed (CMS/HCC) ([facility]) ??? Cyclic vomiting syndrome ??? Depression ??? Headache, tension-type ??? Hypertension ??? Migraine ??? Stroke (CMS/HCC) ([facility]) ??? Weight loss Past Surgical History: Procedure [...] Rate Source 12/18/21 1317 Monitor Patient Position 12/17/212116 Sitting BP Location 12/17/21 2117 Right arm [...] - Intake/Output Summary (Last 24 hours) at 12/18/2021 1714 Last data filed at 12/18/2021 1630 Gross per 24 hour Intake 900 ml Output -- Net 900 ml Past Medical History: Diagnosis Date ??? Anxiety ??? Arthritis ??? Bipolar affect, depressed (CMS/HCC) (HCC) ??? Cyclic vomiting syndrome ??? Depression ??? Headache, tension-type ??? Hypertension ??? Migraine ??? Stroke (CMS/HCC) (HCC) ??? Weight loss Medications HOME MEDICATIONS : [...] Daily Joshua Pearson MD 10 mg at 12/18/211710 ??? [START ON 12/19/2021] clonazePAM (KlonoPIN) tablet [...] GI note had gained 2 lb from herprevious visit) saw her GI doctor yesterday who [...] appendix is normal. Tiny fat containing periumbilical h ernia is seen. PERITONEUM: No ascites or free air. RETROPERITONEUM: The portal venous system is poorly opacified due to phase of contrast. The proximal superior mesenteric artery is patent. There is a replaced right hepatic artery. REPRODUCTIVE: No significant abnormality. VASCULATURE: No abdominalaortic aneurysm. MUSCULOSKELETAL: Scoliosis. Grade 1 anterolisthesis of [...] Parmjit Herrera M.D. BB: BÁRBARA Report ID: [id number] Location: [id number] Microbiology 12/18/21 1355 Influenza A/B, RSV, and [...] both constipation and diarrhea Hypertension Atrial fibrillation ([facility]) ([facility]) Migraine headache Abdominal pain, generalized Bipolar affect, depressed ([facility]) ([facility]) Marijuana use Resolved Problems: No resolved hospital [...] UDS: Positive for cannabinoid Bipolar affect, depressed ([facility]) ([facility]) Assessment & Plan Patient has history of [...] & Plan Started home Topamax Atrial fibrillation ([facility]) (HCC) Assessment & Plan Patient has history [...] with voice recognition software. Occasional wrong-word or 'ffwsd-h-dvbi' substitutions may have occurred due to the inherent limitations of voice recognition software. Read the chart carefully and recognize, using context, where substitutions have occurred. Joshua Pearson MD Family Medicine PGY-1 [facility] Family Medicine Residency Date of Service: 12/18/2021 [...] MD Director of Family Medicine Inpatient Services [place], [facility] Family Medicine Residency [facility] documented in this encounter Procedure Notes * Germania Sorto MD - 12/18/2021 2:14 PM CDTAssociated Order(s): EGD [facility] Patient Name: Sarahy Mays Procedure Date: 12/18/2021 2:14 PM Date of : 1970 Admit Type: Outpatient Age: 51 Gender: Female Attending MD: Germania Sorto M.D. Room: [facility] ENDOSCOPY ROOM 1 Note Status: Finalized Patient [...] passed under direct vision. The Endoscope GIF-[id number] was introduced through the mouth, and advanced [...] 2:14 PM Procedure Code(s): --- Professional --- 83181, Esophagogastroduodenoscopy, flexible, transoral; with biopsy, single or multiple Diagnosis Code(s): --- Professional --- K31.89, Other diseases of stomach and duodenum R11.2, Nausea with vomiting, unspecified CPT copyright 2020 [employer]. All rights reserved. The codes documented in this report are preliminary and upon stenographic court reporter review may be revised to meet current compliance requirements. Recognized by the [employer] for promoting quality in endoscopy documented in this encounter Nursing Notes * Mary Sheldon RN - 12/20/2021 10:33 AM CDT MD was contacted/ pt's request. Pt would like [...] with voice recognition software. Occasional wrong-word or 'wcqkt-z-[id number]' substitutions may have occurred due to the [...] ??? Arthritis ??? Bipolar affect, depressed (CMS/HCC) ([facility]) ??? Cyclic vomiting syndrome ??? Depression ??? Headache, tension-type ??? Hypertension ??? Migraine ??? Stroke (CMS/HCC) ([facility]) ??? Weight loss Past Surgical History: Procedure [...] tendency for uric acid stone formation. Source: [employer].Last revised 09-10-2017 COMPREHENSIVE METABOLIC PANEL Sodium 140 [...] ?? By: Matilde Knowles MD Time: 12/18 0957 Comment: Patient pulled out her IV. She [...] rectal area were examined with male nurse staff radiation therapist. No abnormal finding. No skin changes. No nodular density identified. No abscess or cellulitis or induration or fluctuance appreciated. No pain on exam. By: Matilde Knowles MD Time: 12/18 5695 Comment: At that patient had improved, however after her CT scan was done when I had gone over her results she started throwing up again. Have unable to control her symptoms, at this point it looks like she may require admission to the hospital for intractable vomiting. By: Matilde Knowles MD Time: 12/18 509 Comment: Dr. Benavides accepts patient for admission By: Matilde Knowles MD Clinical Impression: 1. Nausea and vomiting, unspecified vomiting type 2. Abdominal pain Disposition: Observation for intractable vomiting (Please note that portions of this note may have been completed with a voice recognition program. Finisher Denture errors occur. Please contact me for any [...] discharged to home, pt taken down to [email or web address] parking where daughter was waiting for her. [...] RN/U. She is being transported back to U/Room 3606 via wheelchair. * Plan of Care [...] (Latest Contact Info) Description 09/07/2024 8:30 AM CUSTOMER SUCCESS ADVOCATE Hospital Encounter [facility] [address] [place] [address] [phone] Forest Catherine MD [address] [address] 09/07/2024 8:30 AM CUSTOMER SUCCESS ADVOCATE - 09/07/2024 9:00 AM CUSTOMER SUCCESS ADVOCATE Surgery [facility] [address] [place] [address] [phone] Forest Catherine MD [address] [address] EGD w/Endo Flip & YI placement Scheduled Procedures Name Priority Associated Diagnoses Date/Ti me ESOPHAGOGASTRODUODENOSCOPY Hiatal hernia Gastroesophageal reflux disease, unspecified whether esophagitis present 09/07/2024 8:30 AM CUSTOMER SUCCESS ADVOCATE documented as of this encounter Procedures Procedure [...] MD LAB BLOOD ORDERABLES Cristy beebe Result [facility] Department [place] [address] * Basic metabolic panel (12/19/2021 3:03 AM [...] Cristy beebe Result [facility] Department [place] [address] * (ABNORMAL) CBC without differential (12/19/2021 3:03 [...] Cristy beebe Result [facility] Department [place] [address] * EGD (12/18/2021 2:14 PM CDT) Anatomical Region Laterality Modality Other Narrative Procedure Note Germania Sorto MD - 12/18/2021 2:14 PM CDT [facility] Patient Name: Sarahy Mays Procedure Date: 12/18/2021 2:14 PM Date of : 1970 Admit Type: Outpatient Age: 51 Gender: Female Attending MD: Germania Sorto M.D. Room: [facility] ENDOSCOPY ROOM 1 Note Status: Finalized Patient [...] passed under direct vision. The Endoscope GIF-H190 [id number] was introduced through the mouth, and advanced [...] 2:14 PM Procedure Code(s): --- Professional --- 17531, Esophagogastroduodenoscopy, flexible, transoral; with biopsy, single or multiple Diagnosis Code(s): --- Professional --- K31.89, Other diseases of stomach and duodenum R11.2, Nausea with vomiting, unspecified CPT copyright 2020 [employer]. All rights reserved. The codes documented in this report are preliminary and upon stenographic court reporter reviewmay be revised to meet current compliance requirements. Recognized by the [employer] for promoting quality [...] data: This test is performed using the [employer] Xpert Xpress CoV-2/Flu/RSV plus assay. This is [...] PM CDT 12/18/2021 1:10 PM CDT Narrative [facility] - 12/18/2021 1:55 PM CDT Is the Patient experiencing symptoms consistent with COVID?->No Reason for testing?->Urgent surgical procedure Germania Sorto MD LAB MICROBIOLOGY - GENERAL ORDERABLES Final Result [facility] ([place]) [facility] Department [place] [address] * Surgical pathology (12/18/2021 9:28 AM CDT) Tissue (Polyp(s), colon/colorectal, esophageal, gastric) 12/18/2021 3:49 PM CDT Narrative PATHOLOGY [facility] - 12/20/2021 1:33 PM CDT EPIC results best viewed via link to PDF [facility] Department of Pathology [address] [place] [id number] Note to Patients: This report may contain [...] the details. Final Report Patient Name: ??SARAHY MAYSCinthya Address: ??[address] [place] [address], ??[place], [place] ?? Gender: ??F : ??1970 (Age: 51) Service: ??Medical Location: ??[facility] Hospital #: ??[id number] Patient Type: ??[facility] IP Accession # ?[id number] Taken: ??12/18/2021 Received: ??12/19/2021 Accessioned: ??12/19/2021 Reported: [...] submitted in a single container labeled Sarahy A. Dellarosa and gastric body . ??It is two padron 2 mm fragments. ??All in one cassette. ??Victoria Saravia M.D./Lynette Florez. REPORT IMAGES AND SCANNED DOCUMENTS, IF INCLUDED, ONLY VIEWABLE IN PDF VERSION OF REPORT The performance characteristics of some immunohistochemical stains, fluorescence in-situ hybridization tests and immunophenotyping by flow cytometry cited in this report (if any) were determined by the Surgical Pathology Department at [facility] as part of an ongoing supervisor type disk quality control program and in compliance with federally mandated [...] determined by the Surgical Pathology Department [facility]. ??It has not been cleared or approved by the U. S. Food and Drug Administration. Note for decalcified specimens: This assay has not been validated on decalcified tissues. Results should be interpreted with caution given the possibility of false negativity on decalcified specimens us Germania Sorto MD LAB PATHOLOGY ORDERABLES F inal Result PATHOLOGY [facility] [address] [place] [address] * CT Abdomen Pelvis W Contrast (12/18/2021 [...] AM T: ??12/18/2021 1:07 AM Report ID: [id number] Reading Location: ??[id number] Procedure Note Parmjit Herrera MD PhD - [...] Parmjit Herrera M.D. BB: BÁRBARA Report ID: [id number] Reading Location: [place] [address] Matilde Knowles MD IMG CT PROCEDURES Final Result * Lactate (12/17/2021 11:35 PM CDT) Lactate 1.0 0.7 - 2.0 mmol/L [facility] Blood 12/17/2021 11:3 5 PM CDT 12/17/2021 11:47 PM CDT Matilde Knowles MD LAB BLOOD ORDERABLES Fin al Result [facility] ([place] Department [place] [address] * (ABNORMAL) Drugs of Abuse Screen, Urine without Confirmation (12/17/2021 9:25 PM CDT) [facility] Amphetamine, ur Not Detected CutOff 500ng/mL [facility] [...] 2019. Methadone, ur Not Detected CutOff 300ng/mL [facility] ([place]) Comment: Interpretive Data - Methadone: ??Samples [...] 12/18/2021 5:13 AM CDT Narrative [facility] ([place]) - 12/18/2021 5:39 AM CDT Drug of Abuse screening is performed by immunoassay for medical purposes only. ??This is not to be used for Pain Management purposes. us Matilde Ana Casner MD LAB URINE ORDERABLES Fin al Result [facility] ([place]) [facility] [place] [address] * Urinalysis reflex to microscopic and culture [...] PM CDT 12/17/2021 9:28 PM CDT Narrative [facility] ([place]) - 12/17/2021 9:32 PM CDT ?? Urine pH is affected by diet, medications, systemic acid-base disturbances, and renal tubular function. ??pH may affect urinary stone formation. ??For example, urine pH below 6.0 may help reduce the tendency for calcium phosphate stones and pH greater than 6.0 may reduce the tendency for uric acid stone formation. Source: [employer]. Last revised 09-10-2017 Matilde Knowles MD LAB MICROBIOLOGY - GENER AL ORDERABLES Final Result [facility] ([place] [place] [address] * eGFR (12/17/2021 9:12 PM CDT) eGFR 103 mL/min/1. 73 m2 [facility] ([place]) Comment: Interpretive Data Reference Interval Normal ?>/= [...] BLOOD ORDERABLES Fin al Result [facility] ([place]) [facility] Department [place] [address] * (ABNORMAL) Differential, auto (12/17/2021 9:12 PM CDT) Neutrophil abs 11.4(H) 1.7 - 6.5 K/cumm [facility] ([place]) Imm gran abs 0.0 0.0 - 0.1 [...] Fin al Result [facility] ([place]) [facility] Department [place] [address] * Lipase (12/17/2021 9:12 PM CDT) Lipase 38 10 - 99 Units/L [facility] Blood 12/17/2021 9:12 PM CDT 12/17/2021 9:16 PM CDT Matilde Knowles MD LAB BLOOD ORDERABLES Fin al Result Performing Organization Address [facility] [facility] de Phone Number BREN GONZALEZ ([place]) 1 [facility] Department of [employer] [place] [address] * Comprehensive metabolic panel (12/17/2021 9:12 PM [...] Fin al Result [facility] ([place]) 1 [facility] Department [place] [address] * (ABNORMAL) CBC with auto differential (12/17/2021 [...] - 0.01 K/cumm BREN GONZALEZ ([place]) Blood 12/17/2021 9:12 PM CDT 12/17/2021 9:16 PM CDT us Matilde Knowles MD LAB BLOOD ORDERABLES Fin al Result BREN GONZALEZ ([place]) 1 [facility] Department [place] [address] documented in this encounter Visit Diagnoses Diagnosis Nausea and vomiting, unspecified vomiting type- Primary Abdominal pain Abdominal pain, unspecified site Nausea and vomiting, unspecified vomiting type Hiatal hernia Diaphragmatic hernia without mention [...] 10:48 PM CDT 0.5 mg famotidine (PEPCID) tablet 20 mg 20 [...] Given 12/19/2021 8:01 AM CDT 50 mg hydrOXYzine (VISTARIL) capsule 25 mg 25 mg, oral, 3 times daily PRN, anxiety, Starting on Thu12/18/21 at 1655 lubiprostone (AMITIZA) capsule 24 mcg 24 mcg, [...] bisacodyl, Starting on Thu12/18/21 at 2123, Indications: constipationIndications:constipation nortriptyline (PAMELOR) capsule 25 mg 25 mg, [...] 7:14 AM CDT 4 mg ondansetron (ZOFRAN) tablet 4 mg [...] 0639, Indications: Nausea and VomitingIndications:Nausea and Vomiting polyethylene glycol (MIRALAX) packet 17 g 17 g, oral, Nightly, First dose (after last reorder) on Thu12/19/21 at 2100 Given 12/19/2021 8:49 PM CDT 17 g senna-docusate (PERICOLACE) 8.6-50 mg per tablet 2 tablet 2 tablet, oral, Nightly, First dose on Thu12/19/21 at 2100 Given 12/19/2021 8:50 PM CDT [...] size. Flush before and after each use. venlafaxine XR (EFFEXOR-XR) extended release capsule 37.5 [...] Mary Tobin RN - Reason: Patient/family refused) 08 (Not Given - Provider: Jessica Delarosa - Reason: Patient/family refused) 101 (Not Given - Provider: Mary Sheldon RN - Reason: Patient/family refused) clonazePAM (KlonoPIN) tablet 0.5 mg 0.5 mg, oral, Every morning, First dose on Thu12/18/21 at 2145 2248 (Given - Provider: Deedee Camacho RN) 195 (Given - Provider: Jovon Rios RN) famotidine [...] mg/dL).) 0803 (Not Given - Provider: Jessica Delarosa - Reason: Order Discontinued)0807 (Given - Provider: Jessica Delarosa)2047 (Given - Provider: Jovon Rios, KIET) 101 (Given - Provider: Mary Sheldon, KIET) flecainide (TAMBOCOR) tablet 50 mg 50 mg, oral, 2 times daily, First dose on Thu12/18/21 at 2100 2024 (Given - Provider: Deedee Camacho RN) 08 (Given - Provider: Jessica Delarosa)2048 (Given - Provider: Jovon Rios RN) 1014 (Given - Provider: Mary Sheldon, KIET) haloperidol (HALDOL) injection 2.5 mg (COMPLETED) 2.5 mg, intramuscular, Once, On Thu12/18/21 at 0419, For 1 dose, If administered IV push, administer over 5 min for adults 0447 (Given - Provider: Nicolás Goodwin, KIET) LORazepam (ATIVAN) injection 0.5 mg (COMPLETED) 0.5 mg, intravenous, Once, On Thu12/18/21 at 0003, For 1 dose, For IV administration, dilute with equal volume of 0.9% sodium chloride to a final concentration of 1 mg/mL. Do not exceed a rate of 2 mg/minute 0005 (Given - Provider: Nicolás Goodwin, KIET) lubiprostone (AMITIZA) capsule 24 mcg 24 [...] at 1715 1711 (Given - Provider: Mary Tobin, KIET)2248 (Given - Provider: Deedee Camacho, KIET) 0555 (Given - Provider: Deedee Camacho RN)1114 (Given - Provider: Jessica Delarosa)1649 (Given - Provider: Mary Tobin RN)2306 (Given - Provider: Jovon Rios RN) 0527 (Given - Provider: Jovon Rios RN)1122 (Given - Provider: Mary Sheldon RN) pantoprazole DR (PROTONIX) extended release tablet 40 mg (CANCELED) 40 mg, oral, Daily, First dose on Thu12/18/21 at 1715, Do not crush, chew, cut, dissolve, open or otherwise manipulate tablet/capsule., Indications: Stress Ulcer Prophylaxis 1710 (Given - Provider: Mary Tobin RN) polyethylene glycol (MIRALAX) packet 17 g 17 g, oral, Nightly, First dose (after last reorder) on Thu12/19/21 at 2100 2048 (Given - Provider: Jovon Rios, KIET) promethazine (PHENERGAN) suppository 25 mg (COMPLETED) 25 mg, rectal, Once, On Thu12/18/21 at 0136, For 1 dose, Refrigerate 015 (Given - Provider: Nicolás Goodwin RN) senna-docusate (PERICOLACE) 8.6-50 mg per tablet 2 tablet 2 tablet, oral, Nightly, First dose on Thu12/19/21 at 2100 2049 (Given - Provider: Jovon Rios RN) sodium chloride 0.9% flush 0.5-20 mL 0.5-20 mL, intra-catheter, Every 8 hours scheduled, First dose on Thu12/18/21 at 1400, Flush volume based on line type and size. 1407 ([facility] Hold - Provider: Automatic Transfer Provider - Reason: Patient not available)1642 ([facility] Unhold - Provider: Mary Tobin RN)1647 (Given - Provider: Mary Tobin RN - Comment: in EGD)2245 (Not Given - Provider: Deedee Camacho RN - Reason: IV Infusing) 0555 (Not Given - Provider: Deedee Camacho RN - Reason: IV Infusing)1519 (Given - Provider: Jessica Delarosa)2050 (Given - Provider: Jovon Rios RN) 0528 [...] on Thu12/18/21 at 0639, Indications: Pain 1407 (OCT Hold - Provider: Automatic Transfer Provider - Reason: Patient not available)1642 ([facility] Unhold - Provider: Mary Tobin, KIET) 0812 (Given - Provider: Jessica Delarosa)1143 (Not [...] administer over 5 min for adults 1407 ([facility] Hold - Provider: Automatic Transfer Provider - Reason: Patient not available)164 ([facility] Unhold - Provider: Mary Tobin, KIET) hydrOXYzine (VISTARIL) capsule 25 mg 25 mg, [...] 16 mg/day 0714 (Given - Provider: Roxy Denney, KIET)1407 ([facility] Hold - Provider: Automatic Transfer Provider - Reason: Patient not available)1642 ([facility] Unhold - Provider: Mary Tobin, KIET) magnesium hydroxide (MILK OF MAGNESIA) 80 mg/mL [...] 0714 (Given - Provider: Roxy Denney RN)1407 ([facility] Hold - Provider: Automatic Transfer Provider - Reason: Patient not available)1642 ([facility] Unhold - Provider: Mary Tobin RN) ondansetron ODT (ZOFRAN-ODT) disintegrating tablet 4 mg(Linked Group 1) 4 mg, oral, Every 6 hours PRN, nausea, vomiting, Starting on Thu12/18/21 at 0639, Indications: Nausea and Vomiting 0714 (See Alternative - Provider: Roxy Denney RN)1407 ([facility] Hold - Provider: Automatic Transfer Provider - Reason: Patient not available)1642 ([facility] Unhold - Provider: Mary oTbin RN) polyethylene glycol (MIRALAX) packet 17 g 17 g, oral, Daily PRN, constipation, Starting on Thu12/18/21 at 0639, Indications: constipation 1407 ([facility] Hold - Provider: Automatic Transfer Provider - Reason: Patient not available)1642 ([facility] Unhold - Provider: Mary Tobin RN) sodium chloride 0.9% flush 0.5-20 mL 0.5-20 mL, intra-catheter, As needed, line care, Starting on Thu12/18/21 at 1318, Flush volume based on line type and size. Flush before and after each use. 1407 ([facility] Hold - Provider: Automatic Transfer Provider - Reason: Patient not available)1642 ([facility] Unhold - Provider: Mary Tobin RN) SUMAtriptan [...] Count Last Ordered Date First Ordered Date famotidine (PEPCID) tablet 20 mg 1 12/20/19 polyethylene glycol (MIRALAX) packet 17 g 3 12/19/2021 12/18/2021 acetaminophen (TYLENOL) tablet 650 mg 1 apixaban (ELIQUIS) tablet 5 mg 1 12/18/2021 atorvastatin (LIPITOR) tablet 40 mg 1 12/18 bisacodyl EC (DULCOLAX EC) tablet 10 mg 1 0 12/18/2021 citalopram (CeleXA) tablet 10 mg 1 12/19/19 clonazePAM (KlonoPIN) tablet 0.5 mg 1 12/18 dicyclomine (BENTYL) capsule 20 mg 1 2021 famotidine (PEPCID) injection 40 mg 1 12/18 flecainide (TAMBOCOR) tablet 50 mg 2 202112/17/2021 haloperidol (HALDOL) injection 2 mg 1 12/18 haloperidol (HALDOL) injection 2.5 mg 1 hydrOXYzine (ATARAX) tablet 25 mg 1 022 hydrOXYzine (VISTARIL) capsule 25 mg 11/30 ioversoL (OPTIRAY 320) injection 100 mL 1 0 12/18/2021 loperamide (IMODIUM) capsule 2 mg 1 022 LORazepam (ATIVAN) injection 0.5 mg 1 12/18 lubiprostone (AMITIZA) capsule 24 mcg 1 magnesium hydroxide (MILK OF MAGNESIA) 80 mg/mL (33.3 mg/mL as elemental magnesium) oral suspension 30 mL 1 12/18/2021 metoprolol XL (TOPROL-XL) ex tended release tablet 25 mg 1 12/18/2021 mineral oil (FLEET MINERAL O [place]) enema 1 enema 1 12/18/2021 nortriptyline (PAMELOR) capsule 25 mg 1 ondansetron (ZOFRAN) injection 4 mg 2 12/1812/17/2021 ondansetron (ZOFRAN) injection 8 mg 1 12/18 ondansetron (ZOFRAN) tablet 4 mg 1 12/19/19 ondansetron ODT (ZOFRAN-ODT) disintegrating tablet 4 mg 2 12/18/2021 12/17/[address] (PROTONIX) e xtended release tablet 40 mg 1 12/18/2021 polyethylene glycol (MIRALAX) powder 238 g 1 12/18/2021 promethazine (PHENERGAN) suppository 25 mg 1 12/18/2021 senna-docusate (PERICOLACE) 8.6-50 mg per tablet 2 tablet 1 12/18/2021 sodium chloride 0.9% flush 0.5-20 mL 2 11/30 sodium chloride 0.9% infusion 3 12/18/2021 SUMAtriptan (IMITREX) tablet 50 mg 1 2021 venlafaxine XR (EFFEXOR-XR) extended release capsule 37.5 mg 1 12/18/2021 Lactated Ringer's (LR) bolus 1,000 mL 1 Diet Count Last Ordered Date First [...] 12/18/2021 documented in this encounter Care Teams Range Aide Relationship Specialty Start Date End Date Parmjit Ewing MD PCP - General 12/31/20 Mere Landa NP Nurse Practitioner 02/07/20 Tico Burton MD Surgeon General Surgery 08/09/21 documented as of this encounter
--- OUTSIDE RECORDS SUMMARY | 2024-08-16 04:35 | XMS_ITS | Encounter Summary ---
Author Organization [facility] Address [address] [place] [address] Care Team Providers Care Cutting Machine Offbearer Name Role Phone Mere Landa NP Unavailable [phone] Parmjit Dai MD Primary Care Provider [phone] Tico Burton MD Unavailable [phone] Reason for Visit * Reason Comments Abdominal Pain Per the patient stil l having abdominal pain and nausea for over a year. Per the patient her bowel movements are normal Encounter Details Date Type Department Care Team (Latest Contact Info) Description 10/29/2021 10:15 AM [facility] [employer] Office Visit [facility] Gastroenterology at [address] [place] [id number] Richard Bowman NP [address] [place] [address] [address] [place] [address] Irritable bowel syndrome with both constipation and diarrhea (Primary Dx); Periumbilical abdominal pain; Cyclic vomiting syndrome; Chronic nausea; History of repair of hiatal hernia; Gastroesophageal reflux disease without esophagitis; History of colonoscopy with polypectomy; Hepatic steatosis Social History Tobacco Use Types Packs/Day Years [...] on file Legal Sex Female 10:06 AM [employer] Gender Identity Female 06/17/2024 7:02 AM CDT Sexual Orientation Not on file documented as of this encounter Last Filed Vital Signs Vital Sign Reading Time Taken Comments Blood Pressure 102/72 10/29/2021 10:12 AM [employer] Pulse 54 10/29/2021 10:12 AM [employer] Temperature - - Respiratory Rate - - Oxygen Saturation 98% 10/29/2021 10:12 AM [employer] Inhaled Oxygen Concentration - - Weight 67.4 kg (148 lb 9.6 oz) 10/29/2021 10:12 AM [employer] Height 162.6 cm (5' 4 ) 10/29/2021 10:12 AM [employer] Body Mass Index 25.51 10/29/2021 10:12 AM [employer] documented in this encounter Patient Instructions * Patient Instructions* Richard Gracia NP - 10/29/2021 10:15 AM [employer] Continue Mitzi-colace (senna and colace combo) 2 tabs nightly. Continue 1-2 capfuls of Miralax nightly. You can add in more Miralax as needed. Just make sure you do not get dehydrated from the diarrhea. Add in 1-2 extra plain colace nightly (also known as docusate) Comes in 100 mg or 250 mg. You can do the lower or higher dose, but maybe start with the lower dose. Do not take this on an empty stomach. Buy these OTC. 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 PATIENT DEMOGRAPHICS Sarahy Gill is a 51 y.o. White female. PATIENT'S CARE TEAM Patient Care Team: Parmjit Dai MD as PCP - General Mere Landa NP (Nurse Practitioner) Tico Burton MD as Surgeon (General Surgery) EMOGRAPHICS CHIEF COMPLAINT Chief Complaint Patient presents with ??? Abdominal Pain Per the patient still having abdominal pain and nausea for over a year. Per the patient her bowel movements are normal HPI New or existing patient visit: Existing. Referring Provider: Parmjit Dai MD Nkechi is here today for routine follow up visit. WILLEM with me was 09/24/21 (established care with on this date); previously saw Dr. Urbano at [place] (I never did receive these prior records). Weight is up 2 lbs since last visit. Has not had any cycles of vomiting since her WILLEM with me. Still has some morning nausea issues. Takes Zofran PRN and it helps. No seizure history, but has tried Reglan in the past and not tolerated it. Periumbilical pain/cramping are a lot better. The Bentyl definitely helps. Her bowel regimen currently includes 2 pericolace nightly and 1 capful of Miralax nightly. Still sometimes gets two days in a row and other times will go multiple times per day. Has a combination of loose and formed stools. Today she has already gone 3 times since 9:00 a.m.. Stool started out hard this morning, but now they are on the looser side. The better BMs she has, the less issues she has with gas/bloating/cramping. Tries to follow a low FODMAP diet. Occasionally notices a little blood with wiping, but none mixedin the stool. Has not noticed these last few days. No rectal pain. She is anticoagulated on Eliquis. She believe she is likely lactose intolerance so she tries to stay away from lactose containing products. Heartburn and reflux feel like they are decently well controlled on Protonix 40 mg daily with rare breakthrough symptoms (reduced from BID dosing at time of WILLEM). Not has not recently had to take anyfamotidine. No NSAID or aspirin use. Has history of Afib and TIAs. Takes Eliquis. History of hiatalhernia repair in 2013. Has had an EGD sometime in the last few years and believes that wrap was intact. GB previously surgically removed. No alcohol use, drug use, or tobacco use. CT abdomen/pelvis with contrast done on 09/09/2021 noted a focus of air in the bladder, decreased from prior imaging. Otherwise normal. A tiny fat containing umbilical hernia was noted. X-ray of the abdomen done on 09/09/2021 noted a prominent air-filled loops of small bowel measuringup to 2.8 cm and that is why the CT was completed. CT completed on 08/22/2021 noted a large amount of stool in the colon along with air bubbles in thebladder. Had an echocardiogram done on 08/12/2021 that showed a normal ejection fraction at 60-70%. She doesfollow with Cardiology. CT completed on 08/09/2021 showed resolution of the intussusception. 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 Possible cystitis was noted as well. Colonoscopy was completed with Dr. Aiken in 2019. A few polyps were removed. Internal hemorrhoids were noted. Not sure when she is supposed to repeat. No family history of colon cancer. Likely needsto be on a 5 year surveillance colonoscopy schedule. Labs complete last completed on 09/09/2021 and at that time white blood cell count was 10.4. H/ H was 11.4/37.5 and hemoglobin had been 10.8 one month prior. CMP was normal. Urinalysis normal. Lipasenormal in July of 2021. REVIEW OF SYSTEMS Review of Systems Constitutional: Negative for activity change, appetite change, chills, diaphoresis, fatigue, fever,and unexpected weight change. HENT: Negative for congestion, drooling, mouth sores, postnasal drip, rhinorrhea, sore throat, trouble swallowing, and voice change. Respiratory: Negative for cough, choking, chest tightness, shortness of breath, wheezing, and stridor. Cardiovascular: Negative for chest pain, palpitations, and leg swelling. Gastrointestinal: See HPI for full review of this system. Heartburn and reflux are well controlled with rare breakthrough symptoms. Still sometimes has morning nausea, but improved from previous visit. No longer having any vomiting issues and has not vomited since last visit. No recent issues with dry heaving. The periumbilical pain and cramping that she was having has greatly improved. Constipation is better controlled. Passing a combination of loose and formed stools. Sometimes has urgency and frequency, especially in the morning. Rarely he passes bright red blood per rectum with wiping, but none mixed in the stool. Has a hemorrhoid that occasionally flares up. No recent rectal pain issues. Occasionally having gas and bloating issues, but they are better than they have been in the past.No incontinence issues. No bowel habit changes. No dark, black, or bloody bowel movements. Genitourinary: Negative for difficulty urinating, dysuria, frequency, and urgency. Musculoskeletal: Negative for arthralgias and myalgias. Skin: Negative for pallor and rash. Neurological: Negative for dizziness, light-headedness, and headaches. Psychiatric/Behavioral: Negative for decreased concentration, dysphoric mood, and sleep disturbance. The patient is not nervous/anxious. PHYSICAL EXAM BP 102/72 (BP Location: Left arm, Patient Position: Sitting) Pulse 54 Ht 162.6 cm (5' 4 ) Wt 67.4 kg (148 lb 9.6 oz) SpO2 98% BMI 25.51 kg/m?? No LMP recorded. Patient is postmenopausal. Physical Exam Constitutional: General: No acute distress. Appearance: Not ill-appearing. Weight is healthy. HENT: Head: Normocephalic and atraumatic. Mouth/Throat: Mouth: [...] Bowel sounds are normal. Palpations: Abdomen is soft, non distended. Tenderness: No abdominal tenderness noted. There is no guarding or rebound. Hernia: No hernia is present. Lymphadenopathy: Cervical: No cervical adenopathy. Skin: General: Skin is warm and dry. Coloration: Skin is not jaundiced or pale. Findings: No bruising or rash. Neurological: Mental Status: Pt is alert and oriented to person, place, and time. Psychiatric: Mood and Affect: Mood normal. Behavior: Behavior normal. GI ASSESSMENT/PLAN Diagnoses and all orders for this visit: Irritable bowel syndrome with both constipation and diarrhea (Primary) Periumbilical abdominal pain Chronic issues, much better controlled than have been in the past. Can continue Bentyl PRN for cramping as it helps. She was given the following instructions to follow: Continue Mitzi-colace (senna and colace combo) 2 tabs nightly. Continue 1-2 capfuls of Miralax nightly. You can add in more Miralax as needed. Just make sure you do not get dehydrated from the diarrhea. Add in 1-2 extra plain colace nightly (also known as docusate) Comes in 100 mg or 250 mg. You can do the lower or higher dose, but maybe start with the lower dose. Do not take this on an empty stomach. Buy these OTC. She was also provided with the following dietary recommendations to review/implement: [email or web address] Cyclic vomiting syndrome Chronic nausea Chronic issue, doing significantly better on her symptomatology than she has done in the past. No vomiting since WILLEM; continues to sometimes have some am nausea. Can continue Zofran p.r.n.. Should continue to try to eat small, frequent, healthy meals. Should avoid eating late and overeating. History of repair of hiatal hernia Gastroesophageal reflux disease without esophagitis - pantoprazole DR (PROTONIX) 40 mg EC tablet; Take 1 tablet (40 mg total) by mouth daily Heartburn and reflux are well controlled with rare breakthrough symptoms. Has had EGD in past few years that showed intact wrap from prior HH repair. Protonix 40 mg b.i.d. was reduced to 40 mg daily at time of last office visit and she has tolerated this change well. For now, will have her continueProtonix 40 mg daily without change, but I am hopeful that we will get her down to every other day d osing on 40 mg or 20 mg daily, eventually. Long-term goal would be to reduce her PPI use to preventpotential for long-term side effects. If symptoms become problematic, will get double contrast barium esophagram. ~Patient was counseled to: -Avoid trigger foods (such as spicy foods, fried foods, onions, peppermints, chocolate, high acid foods and juices, caffeinated beverages, carbonated beverages, and tomato based products). -Avoid alcohol take. -Avoid routine use of NSAIDs. -Avoid lying down for 2-3 hours after eating. -Weight loss encouraged. -Eat smaller meals. - Avoid tobacco use. -Sleep on left side. -Avoid wearing tight clothing that puts pressure on the stomach. History of colonoscopy with polypectomy Colonoscopy was completed with Dr. Aiken in 2019. A few polyps were removed. Internal hemorrhoids were noted. Not sure when she is supposed to repeat. No family history of colon cancer. Likely needsto be on a 5 year surveillance colonoscopy schedule and due in 2024. Hepatic steatosis Incidental finding on prior imaging. Healthy lifestyle changes encouraged. Encouraged to limit alcohol use to on occasion and only in moderation. Encouraged to cut back on carbs, fats, portions, and sugary beverages in diet. Encouraged to walk as much as possible for exercise. Weight is healthy so no weight loss needed. Return in about 3 months (around 01/29/2022) for IBS. Medication(s) and/or immunization(s) uses and side effects briefly discussed. Patient verbalizes understanding of all instructions provided today and agrees with plan. MEDICAL HISTORY Patient's active problem list, medical history, surgical history, social history, and family history were reviewed and updated as needed. Patient Active Problem List Diagnosis Date Noted ??? History of colonoscopy with polypectomy 10/07/2021 [...] date: 1983 Quit date: 2000 Years since quittin.2 ??? Smokeless tobacco: Never Used ??? Tobacco [...] mg ??? SUMAtriptan (IMITREX) 50 mg tablet Medications were reviewed and updated as needed. ALLERGIES Allergies Allergen Reactions ??? Compazine [Prochlorperazine] Other (See comments) made me feel weird, odd also agitation ??? Phenergan [Promethazine] Agitation ??? Reglan [Metoclopramide] Other (See comments) Had TIA after trying. ??? Zithromax [Azithromycin] Stomach upset Allergies were reviewed and updated as needed. Total time spent on the date of the azpa-oe-jrut encounter, including both oswr-nk-sakr time (including staff/provider time spent providing education) and wae-uwwy-pf-face time (pre-charting, reviewing chart, post-charting) was 30 minutes. This note is dictated and transcribed by [email or web address]. Regulatory Coordinator variances may occur. Despite proofreading, typographical errors may occur. My collaborating physician is Dr. Germania Sorto- Gastroenterology. Richard Gracia NP documented in this encounter Plan of Treatment Upcoming Encounters Date Type Department Care Team (Latest Contact Info) Description 09/07/2024 8:30 AM [facility] Hospital Encounter [facility] [address] [place] [phone] Forest Catherine MD [address] [place] [address] 09/07/2024 8:30 AM [employer] - 09/07/2024 9:00 AM [employer] Surgery [facility] [address] [place] [id number] Forest Catherine MD [address] [place] [address] EGD w/Endo Flip & YI placement Scheduled Procedures Name Priority Associated Diagnoses Date/Ti me ESOPHAGOGASTRODUODENOSCOPY Hiatal hernia Gastroesophageal reflux disease, unspecified whether esophagitis present 09/07/2024 8:30 AM [employer] documented as of this encounter Visit Diagnoses Diagnosis Irritable bowel syndrome with both constipation and diarrhea- Primary Periumbilical abdominal pain Abdominal pain, periumbilic Cyclic vomiting syndrome Persistent vomiting Chronic nausea Nausea alone History of repair of hiatal hernia Gastroesophageal reflux disease without esophagitis Esophageal reflux History of colonoscopy with polypectomy Other postprocedural status Hepatic steatosis Other chronic nonalcoholic liver disease Hiatal hernia Diaphragmatic hernia without mention of obstruction or gangrene Gastroesophageal reflux disease, unspecified whether esophagitis present documented in this encounter Care Teams Cutting Machine Offbearer Relationship Specialty Start Date End Date Parmjit Dai MD PCP - General 12/31/20 Mere Landa NP Nurse Practitioner 02/07/20 Tico Burton MD Surgeon General Surgery 08/09/21 documented as of this encounter
--- OUTSIDE RECORDS SUMMARY | 2024-08-16 04:35 | XMS_ITS | Encounter Summary ---
Author Organization [facility] Healthcare Address [address] [place] [address] Care Team Providers Care Traffic Signal Repairer Name Role Phone Mere Landa NP Unavailable [phone] Parmjit Dai MD Primary Care Provider [phone] Tico Burton MD Unavailable [phone] Reason for Visit * Reason Comments Abdominal Pain Encounter Details Date Type Department Care Team (Late st Contact Info) Description 08/22/2021 8:59 AM FORESTRY PATROLMAN - 08/22/2021 11:47 AM [facility] Emergency [facility] Emergency Department [address] [place] [id number] Irritable bowel syndrome with constipation (Primary Dx) Discharge Disposition: Discharge to home [...] on file Legal Sex Female 10:06 AM FORESTRY PATROLMAN Gender Identity Female 06/17/2024 7:02 AM CDT Sexual Orientation Not on file documented as of this encounter Last Filed Vital Signs Vital Sign Reading Time Taken Comments Blood Pressure 106/66 08/22/2021 11:19 AM FORESTRY PATROLMAN Pulse 55 08/22/2021 11:19 AM FORESTRY PATROLMAN Temperature 36.8 ??C (98.2 ??F) 08/22/2021 11:[address] Respiratory Rate 18 08/22/2021 8:43 AM FORESTRY PATROLMAN Oxygen Saturation 99% 08/22/2021 11:19 AM FORESTRY PATROLMAN Inhaled Oxygen Concentration - - Weight 67.1 kg (148 lb) 08/22/2021 8:43 AM FORESTRY PATROLMAN Height 162.6 cm (5' 4 ) 08/22/2021 8:43 AM FORESTRY PATROLMAN Body Mass Index 25.4 08/22/2021 8:43 AM FORESTRY PATROLMAN documented in this encounter Discharge Diagnoses Diagnosis Irritable bowel syndrome with constipation - IRRITABLE BOWEL SYNDROME WITH CONSTIPATION Irritable bowel syndrome Essential (primary) hypertension - ESSENTIAL (PRIMARY) HYPERTENSION Unspecified essential hypertension Acquired absence of other specified parts of digestive tract - ACQUIRED ABSENCE OF OTHER SPECIFIED PARTS OF DIGESTIVE TRACT Personal history of other diseases of the digestive system - PERSONAL HISTORY OF OTHER DISEASES OF THE DIGESTIVE SYSTEM Personal history of transient ischemic attack (TIA), and cerebral infarction without residual deficits - PERSONAL HISTORY OF TRANSIENT ISCHEMIC ATTACK (TIA), AND CEREBRAL INFARCTION WITHOUT RESIDUAL DEFICI Personal history of nicotine dependence - PERSONAL HISTORY OF NICOTINE DEPENDENCE documented in this encounter Discharge Instructions * Discharge Instructions* Moni Pina NP - 08/22/2021 10:57 AM FORESTRY PATROLMAN Take a capful of Miralax every day until you have good bowel movements. STRY PATROLMAN * Attachments The following attachments cannot be sent through Care Everywhere. * Constipation (Adult) ([place]) * Irritable Bowel Syndrome (AfterCare(R) Instructions(ER/ED)) ([place] Citizen) documented in this encounter Medications at Time of Discharge apixaban (ELIQUIS) 5 mg tablet Take 1 tablet (5 mg total) by mouth 2 (two) times a day atorvastatin (LIPITOR) 40 mg tabletIndication s:hyperlipidemia Take 1 tablet (40 mg total) by mouth daily 30 tablet 1 08/13/2021 metoprolol XL (TOPROL-XL) 25 mg extended release tablet Take 1 tablet (25 mg total) by mouth daily magnesium citrate solution Take 296 mL by mouth once for 1 dose 300 mL 08/22/2021 08/22/2021 ondansetron (ZOFRAN) 4 mg tablet Take 1 [...] Refills Last Filled Start Date End Date magnesium citrate solution Take 296 mL by mouth once for 1 dose 300 mL 08/22/2021 08/22/2021 documented in this encounter Discharge Disposition Disposition Code Departure Means Destination Discharge to home or self care documented in this encounter ED Notes * Moni Pina NP - 08/22/2021 9:18 AM CST HPI Chief Complaint Patient presents with ??? Abdominal Pain 51-year-old female presents to ED with visitor at side. Patient states last night she began having nausea. Patient states today she began having epigastric and mid lower abdominal pain. Patient reports feeling bloated. Patient states she is not sure if she ate too much yesterday denies having an unhealthy diet recently. Patient reports urinary frequency but denies any dysuria. Denies any fevers, chills, chest pain, shortness of breath, diarrhea, constipation, or back pain. Patient has taken Zofran at home without any relief. Patient History: Patient Active Problem List Diagnosis Date Noted ??? Dysuria 08/13/2021 ??? Hypokalemia ??? TIA (transient ischemic attack) 08/11/2021 ??? Cyclic vomiting syndrome 08/09/2021 ??? Bipolar affect, depressed (CMS/HCC) ([facility]) 08/09/2021 ??? Intussusception intestine (CMS/HCC) ([facility]) 08/09/2021 ??? Hypertension 08/08/2021 ??? Abdominal pain, generalized 08/08/2021 ??? Atrial fibrillation (CMS/HCC) ([facility]) 05/15/2020 ??? Essential tremor 10/12/2018 ??? Jerky body movements 10/12/2018 ??? Irritable bowel syndrome with diarrhea 02/23/2018 ??? Orthostatic dizziness 09/16/2016 ??? Palpitations 07/29/2016 ??? Migraine headache 07/29/2016 Past Medical History: Diagnosis Date ??? Anxiety ??? Arthritis ??? Bipolar affect, depressed (CMS/HCC) (HCC) ??? Cyclic vomiting syndrome ??? Depression ??? Headache, tension-type ??? Hypertension ??? Migraine ??? Stroke (CMS/HCC) ([facility]) ??? Weight loss Past Surgical History: [...] occasion ??? Drug use: Yes Types: Marijuana Social History Social History Narrative ??? Not on file Review of Systems Review of Systems Constitutional: Negative. Negative for chills and fever. HENT: Negative. Respiratory: Negative. Negative for shortness of breath. Cardiovascular: Negative. Negative for chest pain. Gastrointestinal: Positive for abdominal distention, abdominal pain and nausea. Negative for constipation, diarrhea and vomiting. Genitourinary: Positive for frequency. Negative for dysuria. Musculoskeletal: Negative. Negative for back pain. Skin: Negative. Neurological: Negative. All other systems reviewed and are negative. Physical Exam ED Triage Vitals [08/22/21 0843] Temp Pulse Resp BP SpO2 36.7 ??C (98 ??F) 53 18 109/63 100 % Temp src Heart Rate Source Patient Position BP Location FiO2 (%) -- -- -- -- -- Physical Exam Vitals and nursing note reviewed. Exam conducted with a print support specialist present. Constitutional: General: She is not in acute distress. Appearance: She is well-developed. She is not ill-appearing, toxic-appearing or diaphoretic. HENT: Head: Normocephalic and atraumatic. Eyes: Extraocular Movements: Extraocular movements intact. Cardiovascular: Rate and Rhythm: Normal rate. Heart sounds: Normal heart sounds. Pulmonary: Effort: Pulmonary effort is normal. No respiratory distress. Breath sounds: Normal breath sounds. Abdominal: General: Bowel sounds are decreased. Palpations: Abdomen is soft. Tenderness: There is abdominal tenderness in the epigastric area. Skin: General: Skin is warm and dry. Capillary Refill: Capillary refill takes less than 2 seconds. Neurological: General: No focal deficit present. Mental Status: She is alert and oriented to person, place, and time. Psychiatric: Mood and Affect: Mood normal. Behavior: Behavior normal. MDM Medical Decision Making Differential Diagnosis or Management Options: IBS Bowel obstruction UTI Intussusception Critical care performed: No ED Course as of 08/22/21 1100 Time: 08/22 1051 Comment: 1. Large amount of stool in the colon. ?? 2. Air bubbles in the bladder. This might be due to recent catheterization. Correlation with the catheterization history is required. ?? 3. No intussusception. By: Moni Pina NP Time: 08/22 1059 Comment: Discussed the importance of walking/movement and good water intake. By: Moni Pina NP Final diagnoses: Irritable bowel syndrome with constipation Moni Pina NP 08/22/21 1100 Cosigned by Juice Pineda MD at 08/22/2021 11:03 AM FORESTRY PATROLMAN STRY PATROLMAN STRY PATROLMAN Associated attestation - Juice Pineda MD - 08/22/2021 11:03 AM FORESTRY PATROLMAN ED Attestation I agree with management. * Natalia Delacruz RN - 08/22/2021 8:40 AM CST Patient here for evaluation of abdominal pain. Patient states she started to loose her appetite yesterday and her stomach felt bloated. States the pain started this morning. Reports nausea but no vomiting or diarrhea. STRY PATROLMAN documented in this encounter Plan of Treatment Upcoming Encounters Date Type Department Care Team (Latest Contact Info) Description 09/07/2024 8:30 AM FORESTRY PATROLMAN Hospital Encounter [facility] [address] [place] [phone] Forest Catherine MD [address] [address] 09/07/2024 8:30 AM FORESTRY PATROLMAN - 09/07/2024 9:00 AM FORESTRY PATROLMAN Surgery [facility] [address] [place] [phone] Forest Catherine MD [address] [address] EGD w/Endo Flip & YI placement Scheduled Procedures Name Priority Associated Diagnoses Date/Ti me ESOPHAGOGASTRODUODENOSCOPY Hiatal hernia Gastroesophageal reflux disease, unspecified whether esophagitis present 09/07/2024 8:30 AM FORESTRY PATROLMAN documented as of this encounter Procedures Procedure Name Priority Date/Time Associated Diagnosis Comments CT ABDOMEN PELVIS W CONTRAST ED 08/22/2021 10:33 AM FORESTRY PATROLMAN EGFR STAT 08/22/2021 9:25 AM FORESTRY PATROLMAN DIFFERENTIAL AUTO STAT 08/22/2021 9:2 5 AM FORESTRY PATROLMAN URINALYSIS AND REFLEX TO MICROSCOPIC AND CULTURE STAT 08/22/2021 9:25 AM FORESTRY PATROLMAN CBC WITH AUTO DIFFERENTIAL STAT 08/22/2021 9:25 AM FORESTRY PATROLMAN LIPASE STAT 08/22/2021 9:25 AM FORESTRY PATROLMAN COMPREHENSIVE METABOLIC PANEL STAT 08/22/2021 9:25 AM FORESTRY PATROLMAN documented in this encounter Results * CT Abdomen Pelvis W Contrast (08/22/2021 10:33 AM FORESTRY PATROLMAN) Anatomical Region Laterality Modality Body N/A Computed Tomogra phy 08/22/2021 10:3 5 AM FORESTRY PATROLMAN Narrative 08/22/2021 10:47 AM FORESTRY PATROLMAN EXAM DESCRIPTION: ?? CT ABDOMEN PELVIS W CONTRAST REASON FOR STUDY: Epigastric pain; epigastric and lower mid abdomen pain, hx of intussception that resolved one week ago ? PSHx tyler hernia ? TECHNIQUE: CT scan of the abdomen [...] ?? injected via ?? intravenous COMPARISON: ?? 08/09/2021 and 08/08/2021 FINDINGS: LOWER CHEST: ?? No significant pulmonary abnormalities. No effusion. LIVER: ?? Normal size. ??No identified cystic or solid masses. GALLBLADDER: ?? Surgically removed BILE DUCTS: ?? No intrahepatic or extrahepatic ductal dilatation. SPLEEN: ?? Normal size. ??No focal lesions. PANCREAS: ?? No identified cystic or solid masses. No significant calcifications. No adjacent inflammation or peripancreatic fluid collections. Pancreatic duct not dilated. ?? ADRENALS: ?? Normal. KIDNEYS/URINARY TRACT: ?? No identified significant cystic or solid masses. ??A couple of small benign cysts are seen in the right kidney. ??No visualized stones. No hydronephrosis or hydroureter. Symmetric enhancement. ?A couple of air bubbles are seen in the bladder. GI: ?? No bowel obstruction was seen. ??There is no intussusception. ??A large amount of stool is seen throughout the colon. PERITONEUM: ?? No ascites or free air. RETROPERITONEUM: ?? No mass or adenopathy. REPRODUCTIVE: ?? No significant abnormality. VASCULATURE: ?? No abdominal aortic aneurysm. MUSCULOSKELETAL: ?? No significant abnormality. OTHER: ?? No other abnormality. IMPRESSION: ??1. ??Large amount of stool in the colon. 2. ??Air bubbles in the bladder. ??This might be due to recent catheterization. ?? Correlation with the catheterization history is required. 3. ??No intussusception. THIS IS AN ELECTRONICALLY VERIFIED FINAL REPORT 08/22/2021 10:47 AM - Electronically signed by ??Irvin Tran M.D. SHYAM: SHYAM D: ??08/22/2021 10:47 AM T: ??08/22/2021 10:47 AM Report ID: [id number] Reading Location: ??[id number] Procedure Note Sathish Tran MD - 08/22/2021 EXAM DESCRIPTION: CT ABDOMEN PELVIS W CONTRAST REASON FOR STUDY: Epigastric pain; epigastric and lower mid abdomen pain, hx ofintussception that resolved one week ago PSHx tyler hernia TECHNIQUE: CT scan of the abdomen and pelvis performed with intravenousand without oral contrast using helical scanning technique with dynamic intravenous contrast injection. Reconstructed coronal and sagittal MPRimages reviewed. All images stored on PACS. Automated exposure control was used as a dose optimization technique forthis examination. CONTRAST TYPE/DOSE: 100mL of IOVERSOL 320 MG IODINE/ML INTRAVENOUSSYRINGE injected via intravenous COMPARISON: 08/09/2021 and 08/08/2021 FINDINGS: LOWER CHEST: No significant pulmonary abnormalities. No effusion. LIVER: Normal size. No identified cystic or solid masses. GALLBLADDER: Surgically removed BILE DUCTS: No intrahepatic or extrahepatic ductal dilatation. SPLEEN: Normal size. No focal lesions. PANCREAS: No identified cystic or solid masses. No significant calcifications. No adjacent inflammation or peripancreatic fluidcollections. Pancreatic duct not dilated. ADRENALS: Normal. KIDNEYS/URINARY TRACT: No identified significant cystic or solid masses.A couple of small benign cysts are seen in the right kidney. No visualized stones. No hydronephrosis or hydroureter. Symmetric enhancement. Acouple of air bubbles are seen in the bladder. GI: No bowel obstruction was seen. There is no intussusception. Alarge amount of stool is seen throughout the colon. PERITONEUM: No ascites or free air. RETROPERITONEUM: No mass or adenopathy. REPRODUCTIVE: No significant abnormality. VASCULATURE: No abdominal aortic aneurysm. MUSCULOSKELETAL: No significant abnormality. OTHER: No other abnormality. IMPRESSION: 1. Large amount of stool in the colon. 2. Air bubbles in the bladder. This might be due to recentcatheterization. Correlation with the catheterization history is required. 3. No intussusception. THIS IS AN ELECTRONICALLY VERIFIED FINAL REPORT 08/22/2021 10:47 AM - Electronically signed by Irvin Tran M.D. SHYAM: SHYAM Report ID: [id number] Reading Location: [place] [address] us Moni Pina HOTEL ENGINEER IMG CT PROCEDURES Final Resu lt * eGFR (08/22/2021 9:25 AM FORESTRY PATROLMAN) eGFR 103 mL/min/1. 73 m2 [facility] [...] interpretive data was last reviewed 2021. Blood 08/22/2021 9:25 AM FORESTRY PATROLMAN 08/22/2021 9:33 AM FORESTRY PATROLMAN us Moni Pina NP LAB BLOOD ORDERABLES Final R esult [facility] ([place]) 1 [facility] Department [place] [address] * Differential, auto (08/22/2021 9:25 AM FORESTRY PATROLMAN) Neutrophil abs 5.9 1.7 - 6.5 K/cumm [facility] ([place]) Imm gran abs 0.0 0.0 - 0.1 K/cumm [facility] ([place]) Lymphocyte abs 1.2 0.8 - 3.3 K/cumm [facility] ([place]) Monocyte abs 0.8 0.2 - 0.8 K/cumm [facility] ([place]) Eosinophil abs 0.2 0.0 - 0.5 K/cumm [facility] ([place]) Basophil abs 0.0 0.0 - 0.1 K/cumm [facility] ([place]) Neutrophil pct 72.8 % [facility] ([place] Comment: Interpretive [...] was last revised on 2017. Lymphocyte pct 14.9 % [facility] Comment: Interpretive Data Percent cell count reference ranges are not reported, since discordance with absolute values may lead to misinterpretation of CBC data. Current Interpretive Data was last revised on 2017. Monocyte pct 9.6 % [facility] ([place]) Comment: Interpretive Data Percent cell count reference ranges are not reported, since discordance with absolute values may lead to misinterpretation of CBC data. Current Interpretive Data was last revised on 2017. Eosinophil pct 1.9 % [facility] ([place] Comment: Interpretive [...] Data was last revised on 2017. Blood 08/22/2021 9:25 AM FORESTRY PATROLMAN 08/22/2021 9:34 AM FORESTRY PATROLMAN Moni Pina HOTEL ENGINEER LAB BLOOD ORDERABLES Final R esult Performing Organization Address City/[facility]/ZIP Co de Phone Number [facility] ([place]) 1 [facility] [place] [address] * Lipase (08/22/2021 9:25 AM FORESTRY PATROLMAN) Lipase 67 10 - 99 Units/L [facility] ([place]) Blood 08/22/2021 9:25 AM FORESTRY PATROLMAN 08/22/2021 9:33 AM FORESTRY PATROLMAN Moni Pina HOTEL ENGINEER LAB BLOOD ORDERABLES Final R esult Performing Organization Address [facility]/RUST de Phone Number [facility] ([place]) [address] [place] [address] * Urinalysis reflex to microscopic and culture Urine (08/22/2021 9:25 AM FORESTRY PATROLMAN) Color, ur Straw Yellow [facility] ([place]) Clarity, ur Clear Clear [facility] ([place]) Specific gravity, ur 1.006 1.003 - 1.030 [facility] ([place]) pH, [...] microscopic UA and culture not met. [facility] ([place]) Urine 08/22/2021 9:25 AM FORESTRY PATROLMAN 08/22/2021 10:01 AM FORESTRY PATROLMAN Narrative [facility] ([place]) - 08/22/2021 10:05 AM FORESTRY PATROLMAN ?? Urine pH is affected by diet, medications, systemic acid-base disturbances, and renal tubular function. ??pH may affect urinary stone formation. ??For example, urine pH below 6.0 may help reduce the tendency for calcium phosphate stones and pH greater than 6.0 may reduce the tendency for uric acid stone formation. Source: [facility] [place]. Last revised 09-10-2017 us Moni Pina NP LAB MICROBIOLOGY - GENERAL O RDERABLES Final Result [facility] ([place] 1 [facility] Department [place] [address] * Comprehensive metabolic panel (08/22/2021 9:25 AM FORESTRY PATROLMAN) Sodium 142 135 - 145 mmol/L [facility] Potassium, pl 4.3 3.3 - 4.9 mmol/L [facility] ([place] Chloride 105 97 - 110 mmol/L [facility] ([place] CO2 26 22 - 32 mmol/L [facility] ([place] Anion gap 11 2 - 15 mmol/L [facility] ([place] BUN 10 8 - 25 mg/dL [facility] Creatinine 0.70 0.60 - 1.10 mg/dL [facility] ([place]) Glucose 108 70 - 199 mg/dL [facility] Comment: Interpretive Data Fasting glucose [...] 1.2 mg/dL [facility] ([place]) Protein, pl 7.3 6.5 - 8.5 g/dL [facility] ([place]) Albumin 4.4 3.5 - 5.0 g/dL [facility] ([place]) Alk phos 83 40 - 130 Units/L [facility] ([place] ALT 13 7 - 45 Units/L [facility] ([place] AST 18 10 - 45 Units/L [facility] ([place]) Blood 08/22/2021 9:25 AM FORESTRY PATROLMAN 08/22/2021 9:33 AM FORESTRY PATROLMAN us Moni Pina HOTEL ENGINEER LAB BLOOD ORDERABLES Final R esult [facility] ([place] 1 [facility] Department [place] [address] * (ABNORMAL) CBC with auto differential (08/22/2021 9:25 AM FORESTRY PATROLMAN) WBC 8.1 3.8 - 9.9 K/cumm [facility] ([place]) Hgb 11.2(L) 11.9 - 15.5 g/dL [facility] ([place]) Hct 35.4(L) 35.6 - 45.5 % [facility] ([place] Plt 335 150 - 400 K/cumm [facility] ([place] MPV 10.1 9.1 - 12.3 fL [facility] RBC 3.99 3.90 - 5.20 M/cumm [facility] MCV 88.7 81.3 - 96.4 fL [facility] ([place] MCH 28.1 27.1 - 33.3 pg [facility] ([place] MCHC 31.6(L) 32.3 - 35.7 g/dL [facility] ([place] RDW CV 14.6 11.1 - 14.9 % [facility] ([place]) RDW SD 46.8 35.7 - 48.1 fL [facility] ([place]) NRBC abs 0.00 0.00 - 0.01 K/cumm [facility] ([place]) Blood 08/22/2021 9:25 AM FORESTRY PATROLMAN 08/22/2021 9:34 AM FORESTRY PATROLMAN us Moni Pina NP LAB BLOOD ORDERABLES Final R esult [facility] ([place] Department [place] [address] documented in this encounter Visit Diagnoses Diagnosis Irritable bowel syndrome with constipation- Primary Irritable bowel syndrome Hiatal hernia Diaphragmatic hernia without mention of obstruction or gangrene Gastroesophageal reflux disease, unspecified whether esophagitis present documented in this encounter Administered Medications Inactive Administered Medications - up to 3 most recent administrations Medication Order MAR Action Action Date Dose Rate Site ioversoL (OPTIRAY 320) intravenous syringe 100 mL 100 mL, intravenous, Once in imaging, contrast, Starting on Anayeli 08/22/21 at 1031, For 1 dose Contrast Given 08/22/2021 10:33 AM FORESTRY PATROLMAN 100 mL ondansetron (ZOFRAN) injection 4 mg 4 mg, intravenous, Administer over 2 Minutes, Once, On Anayeli 08/22/21 at 0918, For 1 dose, Indications: Nausea and VomitingIndications:Nausea and Vomiting Given 08/22/2021 9:29 AM FORESTRY PATROLMAN 4 mg documented in this encounter Active and Recently Administered Medications Times are shown in FORESTRY PATROLMAN. Scheduled Medication Order 08/20/2021 08/21/2021 08/22/2021 ondansetron (ZOFRAN) injection 4 mg (COMPLETED) 4 mg, intravenous, Administer over 2 Minutes, Once, On Anayeli 08/22/21 at 0918, For 1 dose, Indications: Nausea and Vomiting 0929 (Given - Provid er: Kalani Rose RN) PRN Medication Order 08/20/2021 08/21/2021 08/22/2021 ioversoL (OPTIRAY 320) intravenous syringe 100 mL (COMPLETED) 100 mL, intravenous, Once in imaging, contrast, Starting on Anayeli 08/22/21 at 1031, For 1 dose 1033 (Contrast Given - Provider: RT Clay) documented in this encounter Care Teams Traffic Signal Repairer Relationship Specialty Start Date End Date Parmjit Dai MD PCP - General 12/31/20 Mere Landa NP Nurse Practitioner 02/07/20 Tico Burton MD Surgeon General Surgery 08/09/21 documented as of this encounter
--- OUTSIDE RECORDS SUMMARY | 2024-08-16 04:35 | XMS_ITS | Encounter Summary ---
Author Organization [facility] Address [address] [place] [address] Care Team Providers Care Airset Caster Name Role Phone Jazmine Hanson MD Primary Care Provider [phone] Encounter Details Date Type Department Care Team (Late st Contact Info) Description 10/12/2018 8:30 AM ELECTRICAL MAINTENANCE MECHANIC Office Visit [facility] [address] [place] [address] Say Nugent MD [address] [facility] [address] [place] [address] Essential tremor (Primary Dx); Jerky body movements Social History Tobacco Use Types Packs/Day Years Used Date Smoking Tobacco: Former Cigarettes 1 984 - 2000 Smokeless Tobacco: Never Comments:off and on Alcohol Use Standard Drinks/Week Comments No 0 (1 standard drink = 0.6 oz pur e alcohol) on occasion Comments No Sex and Gender Information Value Date Recorded Sex Assigned at Not on file Legal Sex Female 10:06 AM ELECTRICAL MAINTENANCE MECHANIC Gender Identity Female 06/17/2024 7:02 AM CDT Sexual Orientation Not on file documented as of this encounter Last Filed Vital Signs Vital Sign Reading Time Taken Comments Blood Pressure 117/81 10/12/2018 8:49 AM ELECTRICAL MAINTENANCE MECHANIC Pulse 97 10/12/2018 8:49 AM ELECTRICAL MAINTENANCE MECHANIC Temperature - - Respiratory Rate - - Oxygen Saturation - - Inhaled Oxygen Concentration - - Weight 56.5 kg (124 lb 9.6 oz) 10/12/2018 8:49 A M ELECTRICAL MAINTENANCE MECHANIC Height 163.8 cm (5' 4.5 ) 10/12/2018 8:49 AM ELECTRICAL MAINTENANCE MECHANIC Body Mass Index 21.06 10/12/2018 8:49 AM ELECTRICAL MAINTENANCE MECHANIC documented in this encounter Ordered Prescriptions Prescription Sig Dispense Quantity Refills Last Filled Start Date End Date primidone (MYSOLINE) 50 mg tabletIndications:E ssential tremor 1/4 tab po qhs 1 week, 1/2 tab qhs 1 week, 1/4 tab qam & 1/2 tab qhs 1 week, 1/2 tab bid 1 w, 1/2 tab qam, 1 tab qhs1 week, then 1 tab bid 120 tablet 3 10/12/2018 08/09/2021 documented in this encounter Progress Notes * Say Nugent MD - 10/12/2018 8:30 AM CST Subjective/Objective Patient ID: Sarahy Navarrete is a 48 y.o. female. Chief Complaint This is a 48 y.o. female who is referred by Dr. Sumit Bose MD for consultation of tremor and jerky movement HPI This has been going on for about 1-2 months. The tremor affected both hands equally. It is both rest tremor and action tremor. No significant change with gait. Her mother side grandmother has Parkinson disease. She has intermittent involuntary jerky movement of hands. She has been taking Depakote 500 mg qam and 2 tablets qhs. The dose was increased about 6 months ago. Clonazepam 0.5 mg qd prn. She had stomach hernia surgery in 2012. Since then, her appetite has been poor. She has been losing weight. She was evaluated by GI. Past Medical History: Diagnosis Date ??? Anxiety ??? Bipolar affect, depressed (CMS/HCC) ??? Depression ??? Headache, tension-type ??? Migraine ??? Weight loss Allergies Allergen Reactions ??? Compazine [Prochlorperazine] Other (See comments) made me feel weird, odd ??? Zithromax [Azithromycin] Stomach upset Current Outpatient Prescriptions Medication Sig Dispense Refill ??? busPIRone (BUSPAR) 15 mg tablet Take 15 mg by mouth 2 (two) times a day. ??? calcium carbonate-mag hydroxid 400-135 mg/5 mL suspension Take by mouth 4 (four) times a day. ??? divalproex ER (DEPAKOTE ER) 500 mg 24 hr tablet Take 500 mg by mouth daily. ??? naproxen-diphenhydramine 220-25 mg tablet Take by mouth. ??? venlafaxine XR (EFFEXOR-XR) 150 mg 24 hr capsule TK 1 C PO D 0 ??? ciprofloxacin (CIPRO) 500 mg tablet ??? clonazePAM (KlonoPIN) 0.5 mg tablet Take 0.5 mg by mouth as needed for anxiety. ??? desvenlafaxine 50 mg tablet extended release 24hr Take 50 mg by mouth daily. ??? naproxen (ANAPROX,ALEVE) 220 mg tablet Take by mouth as needed for pain. ? ? primidone (MYSOLINE) 50 mg tablet 1/4 tab po qhs 1 week, 1/2 tab qhs 1 week, 1/4 tab qam & 1/2 tab qhs 1 week, 1/2 tab bid 1 w, 1/2 tab qam, 1 tab qhs1 week, then 1 tab bid 120 tablet 3 ??? SUMAtriptan (IMITREX) 50 mg tablet Take 50 mg by mouth once as needed for migraine. May repeat dose once in 2 hours if no relief. Do not exceed 2 doses in 24 hours. No current facility-administered medications for this visit. has a current medication list which includes the following prescription(s): buspirone, calcium carbonate-mag hydroxid, divalproex er, naproxen- diphenhydramine, venlafaxine xr, ciprofloxacin, clonazepam, desvenlafaxine, naproxen, primidone, and sumatriptan. Family History Problem Relation Age of Onset ??? Esophageal cancer Maternal Grandmother ??? Heart disease Maternal Grandmother ??? Stroke Maternal Grandmother ??? Hypertension Maternal Grandmother ??? Migraines Mother Social History Social History ??? Marital status: Unknown Spouse name: N/A ??? Number of children: N/A ??? Years of education: N/A Occupational History ??? Not on file. Social History Main Topics ??? Smoking status: Former Smoker Start date: 1983 Quit date: 1999 ??? Smokeless tobacco: Never Used Comment: off and on ??? Alcohol use No Comment: on occasion ??? Drug use: Yes Types: Marijuana ??? Sexual activity: Not on file Other Topics Concern ??? Not on file Social History Narrative ??? No narrative on file Review of Systems Constitutional: No weight loss/gain, Fatigue, excessive sweating, fever, chills HEENT: No headache/migraine, hearing loss,change in vision, cataracts Respiratory: No trouble breathing, coughing/wheezing, asthma, snoring Muscle skeletal: No joint pain, muscle pain, back pain, neck pain, limb pain Cardiovascular: No chest pain, palpitations, irregular heart beat, passing out, fainting Vascular: NoTingling, numbness, swelling, discoloration of the extremities Gastrointestinal: No nausea, vomiting, diarrhea, abdominal pain Neurologic: No tremors, weakness, numbness, changes in gait, changes in memory Genitourinary: No painful urination, difficulty urination, frequent urination, urinary incontinence, discoloration of urine Reproductive: No hot flash, changes in libido, sexual transmitted disease Metabolic//Endocrine: No sensitivity to heat/cold, abnormal sleep pattern, skin change No hot flash. Psychiatric: No anxiety, depression, mood swings BP 117/81 Pulse 97 Ht 163.8 cm (5' 4.5 ) Wt 56.5 kg (124 lb 9.6 oz) BMI 21.06 kg/m?? Physical Exam Constitutional: well-developed, well-nourished and in no acute stress. Head/Neck: atraumatic, no deformity or stiffness of neck Ears, Nose, Mouth and Throat: No ear tenderness, rhinorrhea, dry mouth or redness of throat. Eyes: Conjunctiva is clear. Sclera normal in color. Eyelid is normal Cardiovascular: S1, S2 are regular. No rubs or gallops Respiratory: clear bilaterally. No rales or wheezing. Adequate air entry Musculoskeletal: no atrophy, Tenderness or abnormal movement Extremities: no edema, cyanosis or deformities Skin: no rashes or lesions. No discoloration. Psychiatric: normal mood and affect. Judgment and insight appear intact Mental status: alert, speech fluent, comprehension intact, follow command appropriately Cranial nerve: JOSEF, corneal reflex present. EOMI, VFF by confrontation method. Facial sensations symmetrical. Face symmetrical. shoulder shrug symmetrical b/l. tongue midline. Motor: bulk normal, tone normal, pronator drift negative. Strength 5/5. Moderate postural tremor of hands Coordination: FTN normal Reflexes: Biceps 2+ b/l, Triceps 2+ b/l, Knee reflex 2+ b/l, Achilles reflex 2+ b/l. plantar downward b/l. Sensation: LT Normal and symmetrical. Gait: could walk independently. Assessment/Plan This is a 48 y.o. female who is referred by Dr. Sumit Bose MD for consultation of tremor and jerky movement. The tremor looks like essential tremor. The jerking movement sounds like benign myoclonic jerking movement. Diagnoses and all orders for this visit: Essential tremor (Primary) - primidone (MYSOLINE) 50 mg tablet; 1/4 tab po qhs 1 week, 1/2 tab qhs 1 week, 1/4 tab qam & 1/2 tab qhs 1 week, 1/2 tab bid 1 w, 1/2 tab qam, 1 tab qhs1 week, then 1 tab bid Jerky body movements - mild. Will observe at this time. Return in about 3 months (around 01/09/2019), or with terry. TRICAL MAINTENANCE MECHANIC documented in this encounter Plan of Treatment Upcoming Encounters Date Type Department Care Team (Latest Contact Info) Description 09/07/2024 8:30 AM ELECTRICAL MAINTENANCE MECHANIC Hospital Encounter [facility] [address] [place] [phone] Forest Catherine MD [address] [address] 09/07/2024 8:30 AM ELECTRICAL MAINTENANCE MECHANIC - 09/07/2024 9:00 AM ELECTRICAL MAINTENANCE MECHANIC Surgery [facility] [address] [place] [phone] Forest Catherine MD [address] [address] EGD w/Endo Flip & YI placement Scheduled Procedures Name Priority Associated Diagnoses Date/Ti me ESOPHAGOGASTRODUODENOSCOPY Hiatal hernia Gastroesophageal reflux disease, unspecified whether esophagitis present 09/07/2024 8:30 AM ELECTRICAL MAINTENANCE MECHANIC documented as of this encounter Visit Diagnoses Diagnosis Essential tremor- Primary Jerky body movements Abnormal involuntary movements Hiatal hernia Diaphragmatic hernia without mention of obstruction or gangrene Gastroesophageal reflux disease, unspecified whether esophagitis present documented in this encounter Historical Medications * This list may reflect changes made after this encounter. naproxen-diphenhy dramine 220-25 mg tablet Take by mouth. 08/09/2021 added in this encounter Care Teams Airset Caster Relationship Specialty Start Date End Date Jazmine Hanson MD [address] [place] [address] DR MONTIEL B [address] [address] PCP - General Family Medicine 10/12/18 01/19/20 documented as of this encounter
--- OUTSIDE RECORDS SUMMARY | 2024-08-16 04:35 | XMS_ITS | Encounter Summary ---
Author Organization [facility] Address [address] [place] [address] Care Team Providers Care Space Systems Operations Manager Name Role Phone Mere Landa NP Unavailable [phone] Parmjit Dai MD Primary Care Provider [phone] Tico Burton MD Unavailable [phone] Encounter Details Date Type Department Care Team (Late st Contact Info) Description 10/04/2021 Telephone [facility] Gastroenterology at [address] [place] [address] Keri Chamberlain MA Social History [...] on file Legal Sex Female 10:06 AM ACTIVITY DIRECTOR Gender Identity Female 06/17/2024 7:02 AM CDT Sexual Orientation Not on file documented as of this encounter Miscellaneous Notes * Telephone Encounter - Mandeep Fountain MD - 10/07/2021 9:51 AM CST I last saw 05/18. Suggest OC next avail or return to [facility] who has recently seen her VITY DIRECTOR * Telephone Encounter - Keri Chamberlain MA - 10/04/2021 12:00 PM CST Pt states her symptoms have worsened, states that she is taking double the zofran for nausea and her abdominal pain is more severe, would like to know what she should do VITY DIRECTOR documented in this encounter Plan of Treatment Upcoming Encounters Date Type Department Care Team (Latest Contact Info) Description 09/07/2024 8:30 AM ACTIVITY DIRECTOR Hospital Encounter [facility] [address] [place] [phone] Forest Catherine MD [address] [address] 09/07/2024 8:30 AM ACTIVITY DIRECTOR - 09/07/2024 9:00 AM ACTIVITY DIRECTOR Surgery [facility] [address] [place] [phone] Forest Catherine MD [address] [address] EGD w/Endo Flip & IY placement Scheduled Procedures Name Priority Associated Diagnoses Date/Ti me ESOPHAGOGASTRODUODENOSCOPY Hiatal hernia Gastroesophageal reflux disease, unspecified whether esophagitis present 09/07/2024 8:30 AM ACTIVITY DIRECTOR documented as of this encounter Visit Diagnoses Not on filedocumented in this encounter Care Teams Space Systems Operations Manager Relationship Specialty Start Date End Date Parmjit Dai MD PCP - General 12/31/20 Mere Landa NP Nurse Practitioner 02/07/20 Tico Burton MD Surgeon General Surgery 08/09/21 documented as of this encounter
--- OUTSIDE RECORDS SUMMARY | 2024-08-16 04:35 | XMS_ITS | Encounter Summary ---
Author Organization [facility] Healthcare Address [address] [place] [address] Care Team Providers Care Roof Truss Detailer Name Role Phone Mere Landa NP Unavailable [phone] Parmjit Dai MD Primary Care Provider [phone] Tico Burton MD Unavailable [phone] Reason for Visit * Reason Comments Weakness - Generalized Encounter Details Date Type Department Care Team (Late st Contact Info) Description 08/15/2021 10:09 PM ALARM SIGNALER - 08/16/2021 5:25 AM [facility] Emergency [facility] Emergency Department [address] [place] [address] Roxy Barros MD [address] [place] [id number] Weakness (Primary Dx); Paresthesia and pain of extremity; Nausea Discharge Disposition: Discharge to home or [...] on file Legal Sex Female 10:06 AM ALARM SIGNALER Gender Identity Female 06/17/2024 7:02 AM CDT Sexual Orientation Not on file documented as of this encounter Last Filed Vital Signs Vital Sign Reading Time Taken Comments Blood Pressure 117/72 08/16/2021 1:43 AM ALARM SIGNALER Pulse 61 08/16/2021 1:43 AM ALARM SIGNALER Temperature 36.3 ??C (97.4 ??F) 08/15/2021 9:50 PM CS T Respiratory Rate 14 08/16/2021 1:43 AM ALARM SIGNALER Oxygen Saturation 100% 08/16/2021 1:43 AM ALARM SIGNALER Inhaled Oxygen Concentration - - Weight 68 kg (150 lb) 08/15/2021 9:50 PM ALARM SIGNALER Height 162.6 cm (5' 4 ) 08/15/2021 9:50 PM ALARM SIGNALER Body Mass Index 25.75 08/15/2021 9:50 PM ALARM SIGNALER documented in this encounter Discharge Diagnoses Diagnosis Weakness - WEAKNESS Other malaise and fatigue Paresthesia of skin - PARESTHESIA OF SKIN Nausea with vomiting, unspecified - NAUSEA WITH VOMITING, UNSPECIFIED Unspecified atrial fibrillation (HCC) - UNSPECIFIED ATRIAL FIBRILLATION retirement (current) use of anticoagulants - SUPERINTENDENT PIER (CURRENT) USE OF ANTICOAGULANTS Long-term (current) use of anticoagulants Personal history of transient ischemic attack (TIA), and cerebral infarction without residual deficits - PERSONAL HISTORY OF TRANSIENT ISCHEMIC ATTACK (TIA), AND CEREBRAL INFARCTION WITHOUT RESIDUAL DEFICI Personal history of nicotine dependence - PERSONAL HISTORY OF NICOTINE DEPENDENCE documented in this encounter Discharge Instructions * Discharge Instructions* Roxy Barros MD - 08/16/2021 5:15 AM ALARM SIGNALER Your CT head tonight did not show any acute intracranial findings. The lab work and EKG were withinnormal limits. Your MRI on August 12 did not show any acute infarction. Keep your appointment with neurology and cardiology next week. Call your primary care physician today for follow-up of continued symptoms. Return if worse, new numbness or weakness, chest pain or fever. M SIGNALER * Attachments The following attachments cannot be sent through Care Everywhere. * Paresthesia (General Information) (Kyrgyz) * Weakness (Beach Attendant) (Kyrgyz) documented in this encounter Medications at Time [...] documented in this encounter ED Notes * Roxy Barros MD - 08/15/2021 11:41 PM CSTAssociated Order(s): ECG 12 lead Chief Complaint Patient presents with ??? Weakness - Generalized 10:51 PM 08/15/2021 Patient is a 51 year old female with a history of IBS, atrial fibrillation (on Eliquis), s/p cholecystectomy, s/p hernia repair, cyclical vomiting, anxiety, and bipolar disorder, who presents to the ED, complaining of moderate left-sided weakness onset around 1-2 PM that has been gradually worsening throughout the day. She states that her left arms feels heavy as though she has been overexerting it. Additionally, she reports that she has cramping in her legs and feels as though they may give out. She reports that she had difficulty with her PT and OT exercises today secondary to the left-sided weakness. She states that she also noted the weakness was worsened when walking from her bed to the bathroom. Associated symptoms include nausea, abdominal cramping, bilateral feet numbness, dysequilibrium, and dizziness. She has tried taking a hot shower and ambulating with minimal relief, but does note moderate relief with rest. She was recently admitted for a TIA and notes that her symptoms today are similar to her symptoms at the time of the TIA. She also reports that she did have tremors in her left hand at that time, but notes that these have improved. She had been instructed to stop taking her Eliquis today and reports that she started taking it again today. She states that she was feeling well when she woke up this morning and slept for 7 hours last night. No other alleviating orexacerbating factors. She states that she is right hand dominant. Per Chart Review: Patient was seen in this ED on 08/14/2021 for palpitations, nausea, and tremors. EKG and troponin were unchanged from baseline. Lab work did not show an electrolyte abnormality. Patient was treated with Zofran and lorazepam. Patient was discharged home with instructions to follow-up with her PCP and neurology. Patient was admitted to this facility on 08/11/2021 s/p TIA. CT head without contrast was negative for any acute intracranial findings. Neurology did not recommend tPA. NIH score was 2. MRI showed noevidence of acute infarct. Carotid arteries ultrasound and echo showed no acute findings. Urinalysis showed 4+ leukocyte esterase and >50 wbc and the patient was started on antibiotics. Eliquis was held and patient was started on aspirin and Lipitor. Patient was discharged home on 08/13/2021 with instructions to follow-up with her PCP. Patient was admitted prior to that for intussusception. That resolved spontaneously and she was discharged on 08/10/21. 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 Anxiety ??? Arthritis ??? Bipolar affect, depressed (CMS/HCC) ([facility]) ??? Cyclic vomiting syndrome ??? Depression ??? Headache, tension-type ??? Hypertension ??? Migraine ??? Stroke (CMS/HCC) ([facility]) ??? Weight loss Past Surgical History: [...] use: Yes Types: Marijuana Review of Systems Constitutional: Negative for chills and fever. HENT: Negative for congestion and ear pain. Eyes: Negative for pain and discharge. Respiratory: Negative for cough and shortness of breath. Cardiovascular: Negative for chest pain and palpitations. Gastrointestinal: Positive for abdominal pain (cramping) and nausea. Negative for vomiting. Genitourinary: Negative for dysuria and frequency. Musculoskeletal: Negative for back pain and myalgias. Skin: Negative for rash and wound. Neurological: Positive for dizziness, weakness (left-sided) and numbness (bilateral feet). Negativefor headaches. +Dysequilibrium ED Triage Vitals Temp Pulse Resp BP SpO2 08/15/21214908/15/21214908/15/21214908/15/21214908/15/212149 36.3 ??C (97.4 ??F) 67 18 123/70 100 % Temp src Heart Rate Source Patient Position BP Location FiO2 (%) 08/15/21214908/16/21 0015 08/16/21 0015 -- -- Temporal Monitor Lying Physical Exam Vitals and nursing note reviewed. Constitutional: Appearance: Normal appearance. She is not ill-appearing. HENT: Head: Normocephalic and atraumatic. Right Ear: [...] breath sounds. Abdominal: General: Abdomen is flat. There is no distension. Tenderness: There is no abdominal tenderness. Musculoskeletal: Cervical back: Normal range of motion and neck supple. Skin: Capillary Refill: Capillary refill takes less than 2 seconds. Neurological: General: No focal deficit present. Mental Status: She is alert and oriented to person, place, and time. Comments: Mental status: Awake, alert and oriented x 3 Higher Cerebral Function: speech is fluent, naming intact Cranial Nerves II- Visual bartlett intact III, IV,- Extraocular movements intact, pupils equal, round and reactive to light V/VII- Facial sensation intact and symmetric with normal strength VIII, IX, X- Hearing not tested, normal swallow and gag XI- normal trapezius strength via shoulder shrug and head rotation XII- no tongue deviation on protrusion Motor Function Right upper extremity: 5/5 Left upper extremity: 5/5 Right lower extremity: 5/5 Left lower extremity: 5/5 Reflexes: 2/4 throughout, no clonus Sensory: normal to touch, temperature to all limbs Coordination: normal finger to nose, no dysmetria or tremor Gait: normal ECG 12 lead Date/Time: 08/16/2021 6:31 AM Performed by: Roxy Barros MD Authorized by: Boone Meyers MD Rate: ECG rate: 69 ECG rate assessment: normal Rhythm: Rhythm: sinus rhythm Ectopy: Ectopy: none QRS: QRS axis: Normal T waves: T waves: flattening and inverted Flattening: V3 Inverted: III and aVF Previous ECG: Previous ECG: Compared to current Date of previous EC08/14/2021 Similarity: No change Interpretation: Interpretation: abnormal Labs Reviewed CBC WITH AUTO DIFFERENTIAL - Abnormal Result Value WBC 9.3 Hgb 10.5 (*) Hct 32.5 (*) Plt 306 MPV 10.2 RBC 3.71 (*) MCV 87.6 MCH 28.3 MCHC 32.3 RDW CV 15.2 (*) RDW SD 47.9 NRBC abs 0.00 DIFFERENTIAL AUTO - Abnormal Neutrophil abs 6.3 Imm gran abs 0.0 Lymphocyte abs 1.5 Monocyte abs 1.3 (*) Eosinophil abs 0.1 Basophil abs 0.0 Neutrophil pct 67.9 Imm gran pct 0.2 Lymphocyte pct 16.3 Monocyte pct 14.0 Eosinophil pct 1.2 Basophil pct 0.4 BASIC METABOLIC PANEL Sodium 140 Potassium, pl 3.4 Chloride 104 CO2 27 Anion gap 9 BUN 9 Creatinine 0.66 Glucose 103 Calcium 9.[address] Head WO Contrast Final Result BP 117/72 (Patient Position: Lying) Pulse 61 Temp 36.3 ??C (97.4 ??F) (Temporal) Resp 14 Ht162.6 cm (5' 4 ) Wt 68 kg (150 lb) SpO2 100% BMI 25.75 kg/m?? MDM Number of Diagnoses or Management Options Nausea: established and worsening Paresthesia and pain of extremity: established and worsening Weakness: established and worsening Amount and/or Complexity of Data Reviewed Clinical lab tests: reviewed Tests in the radiology section of CPT??: reviewed Tests in the medicine section of CPT??: ordered and reviewed Review and summarize past medical records: yes Risk of Complications, Morbidity, and/or Mortality Presenting problems: moderate Diagnostic procedures: moderate Management options: moderate General comments: Will evaluate for acute intracranial abnormality, electrolyte abnormality or infection, dehydration Patient Progress Patient progress: improved 51-year-old female with weakness and paresthesias to the left upper extremity and lower extremity. Symptoms have been intermittent and improved since being in the ER. I have repeated CT imaging that shows no acute change. Labs are otherwise within normal limits and we have given her medicines for nausea. Patient is stable for discharge at this time. During her last admission she had complete neurological workup including MRI and carotid artery imaging. MRI at that time did not show any acute infarction. Patient has scheduled follow-up with Cardiology and Neurology. I have encouraged her to keep these appointments. 5:15 AM: Rechecked the patient- The patient is resting comfortably and feeling better. I discussed the results of the diagnostic studies, my clinical impression, and the plan for further treatment with the patient. The patient agrees with the plan and discharge at this time, all questions addressed. The patient is medically stable for discharge at this time. I have given the patient instructions regarding his diagnosis, expectations, follow up, and return precautions. I explained to the patient that emergent conditions may arise and to return to the ER for new, worsening, or any persistent conditions. I've explained the importance of following up with h is/her Primary Care Physician- (or the referral physician listed below) as instructed. The patient verbalized understanding of the discharge instructions. New medications: Discharge Medication List as of 08/16/2021 5:21 AM I have advised the patient to follow up with the information as noted below Contact Information for Follow-ups Parmjit Dai MD Specialty: Family Medicine Relationship: PCP - General [address] [place] [address] [address] [facility] [id number] Next Steps: Call today Instructions: for recheck of symptoms Disposition: Discharged Diagnosis: Weakness Paresthesia and pain of extremity Nausea Lottie Lepe scribed for Roxy Barros MD, in the doctor's presence. I electronically signed this note at 11:45 PM on 08/15/2021. I, Roxy Barros MD, have personally performed the services described in the documentation, reviewed the documentation, as recorded by the scribe in my presence, and it accurately and completely records my words and actions. MattRamon betheaLottie 08/16/21 0518 Roxy Barros MD 08/16/21 0637 M SIGNALER * Kelby Keita RN - 08/15/2021 9:48 PM CST Ambulate to triage c/o headache leg weakness and heaviness in lt arm that started around 1pm today.States was recently in hospital. M SIGNALER documented in this encounter Plan of Treatment Upcoming Encounters Date Type Department Care Team (Latest Contact Info) Description 09/07/2024 8:30 AM ALARM SIGNALER Hospital Encounter [facility] [address] [place] [phone] Forest Catherine MD [address] [address] 09/07/2024 8:30 AM ALARM SIGNALER - 09/07/2024 9:00 AM ALARM SIGNALER Surgery [facility] [address] [place] [phone] Forest Catherine MD [address] [address] EGD w/Endo Flip & YI placement Scheduled Procedures Name Priority Associated Diagnoses Date/Ti me ESOPHAGOGASTRODUODENOSCOPY Hiatal hernia Gastroesophageal reflux disease, unspecified whether esophagitis present 09/07/2024 8:30 AM ALARM SIGNALER documented as of this encounter Procedures Procedure Name Priority Date/Time Associated Diagnosis Comments EGFR STAT 08/15/2021 11:45 PM ALARM SIGNALER DIFFERENTIAL AUTO STAT 08/15/2021 11: 45 PM ALARM SIGNALER CBC WITH AUTO DIFFERENTIAL STAT 08/15/2021 11:45 PM ALARM SIGNALER BASIC METABOLIC PANEL STAT 08/15/2021 11:[address] HEAD WO CONTRAST ED 08/15/2021 1 1:39 PM ALARM SIGNALER ECG 12-LEAD STAT 08/15/2021 9:57 PM ALARM SIGNALER documented in this encounter Results * eGFR (08/15/2021 11:45 PM ALARM SIGNALER) eGFR 105 mL/min/1. 73 m2 [facility] ([place]) Comment: [...] interpretive data was last reviewed 2021. Blood 08/15/2021 11:4 5 PM ALARM SIGNALER 08/15/2021 11:50 PM ALARM SIGNALER us Roxy Barros MD LAB BLOOD ORDERABLES Final Resul t [facility] ([place]) 1 [facility] Department [place] [address] * (ABNORMAL) Differential, auto (08/15/2021 11:45 PM ALARM SIGNALER) Neutrophil abs 6.3 1.7 - 6.5 K/cumm [facility] ([place]) Imm gran abs 0.0 0.0 - 0.1 K/cumm [facility] ([place]) Lymphocyte abs 1.5 0.8 - 3.3 K/cumm [facility] ([place]) Monocyte abs 1.3(H) 0.2 - 0.8 K/cumm [facility] ([place]) Eosinophil abs 0.1 0.0 - 0.5 K/cumm [facility] ([place]) Basophil abs 0.0 0.0 - 0.1 K/cumm [facility] ([place]) Neutrophil pct 67.9 % [facility] ([place]) Comment: Interpretive [...] was last revised on 2017. Lymphocyte pct 16.3 % [facility] ([place]) Comment: Interpretive Data Percent cell count reference ranges are not reported, since discordance with absolute values may lead to misinterpretation of CBC data. Current Interpretive Data was last revised on 2017. Monocyte pct 14.0 % [facility] ([place]) Comment: Interpretive Data [...] Data was last revised on 2017. Blood 08/15/2021 11:4 5 PM ALARM SIGNALER 08/15/2021 11:50 PM ALARM SIGNALER us Roxy Barros MD LAB BLOOD ORDERABLES Final Resul t [facility] ([place]) [facility] Department [place] [address] * (ABNORMAL) CBC with auto differential (08/15/2021 11:45 PM ALARM SIGNALER) WBC 9.3 3.8 - 9.9 K/cumm [facility] ([place]) Hgb 10.5(L) 11.9 - 15.5 g/dL [facility] ([place]) Hct 32.5(L) 35.6 - 45.5 % [facility] ([place]) Plt 306 150 - 400 K/cumm [facility] ([place]) MPV 10.2 9.1 - 12.3 fL [facility] ([place]) RBC 3.71(L) 3.90 - 5.20 M/cumm [facility] ([place]) MCV 87.6 81.3 - 96.4 fL [facility] ([place]) MCH 28.3 27.1 - 33.3 pg [facility] ([place]) MCHC 32.3 32.3 - 35.7 g/dL [facility] ([place]) RDW CV 15.2(H) 11.1 - 14.9 % [facility] ([place]) RDW SD 47.9 35.7 - 48.1 fL [facility] ([place]) NRBC abs 0.00 0.00 - 0.01 K/cumm [facility] ([place]) Blood 08/15/2021 11:4 5 PM ALARM SIGNALER 08/15/2021 11:50 PM ALARM SIGNALER us Roxy Barros MD LAB BLOOD ORDERABLES Final Resul t [facility] ([place]) 1 [facility] Department [place] [address] * Basic metabolic panel (08/15/2021 11:45 PM ALARM SIGNALER) Sodium 140 135 - 145 mmol/L [facility] ([place]) Potassium, pl 3.4 3.3 - 4.9 mmol/L [facility] ([place]) Chloride 104 97 - 110 mmol/L [facility] ([place]) CO2 27 22 - 32 mmol/L [facility] ([place]) Anion gap 9 2 - 15 mmol/L [facility] ([place]) BUN 9 8 - 25 mg/dL [facility] ([place]) Creatinine 0.66 0.60 - 1.10 mg/dL [facility] ([place]) Glucose 103 70 - 199 mg/dL [facility] ([place]) [...] interpretive data was last revised 2017. Calcium 9.5 8.5 - 10.3 mg/dL [facility] ([place]) Blood 08/15/2021 11:4 5 PM ALARM SIGNALER 08/15/2021 11:50 PM ALARM SIGNALER us Roxy Barros MD LAB BLOOD ORDERABLES Final Resul t [facility] ([place]) 1 [facility] [employer] [place] [facility] [place] [address] * CT Head WO Contrast (08/15/2021 11:39 PM ALARM SIGNALER) Anatomical Region Laterality Modality Head and Neck N/A Computed Tomogra phy 08/15/2021 11:5 4 PM ALARM SIGNALER Narrative 08/15/2021 11:57 PM ALARM SIGNALER EXAM DESCRIPTION: ?? CT HEAD WO CONTRAST REASON FOR STUDY: ?? 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 c/o headache leg weakness and heaviness in lt arm that started around 1pm today. History of TIA ?? TECHNIQUE: Axial images acquired through the brain without intravenous contrast. ??Images stored on PACS. ?? Automated exposure control was used as a dose optimization technique for this examination. COMPARISON: ?? 08/11/2020 FINDINGS: BRAIN: ?? No acute intracranial hemorrhage. ??Ventricles are normal in size and morphology. ??No midline shift or mass effect. ??The foote-white matter differentiation is normal. CALVARIUM: ?? No fracture. SINUSES/MASTOIDS: ?? No fluid or mucosal thickening. ORBITS: ?? No significant abnormality. OTHER: ?? No other significant abnormality. IMPRESSION: ??No acute intracranial findings. ?? MRI is more sensitive for the detection of acute cerebral ischemia. ??If neoplasm is suspected a brain MRI with and without intravenous contrast should be obtained for further evaluation. THIS IS AN ELECTRONICALLY VERIFIED FINAL REPORT 08/15/2021 11:57 PM - Electronically signed by ??Parmjit Herrera M.D. 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 History of TIA TECHNIQUE: Axial images acquired through the brain without intravenous contrast. Images stored on PACS. Automated exposure control was used asa dose optimization technique for this examination. COMPARISON: 08/11/2020 FINDINGS: BRAIN: No acute intracranial hemorrhage. Ventricles are normal in sizeand morphology. No midline shift or mass effect. The foote-white matter differentiation is normal. CALVARIUM: No fracture. SINUSES/MASTOIDS: No fluid or mucosal thickening. ORBITS: No significant abnormality. OTHER: No other significant abnormality. IMPRESSION: No acute intracranial findings. MRI is more sensitive for thedetection of acute cerebral ischemia. If neoplasm is suspected a brain MRI with and without intravenous contrast should be obtained for further evaluation. THIS IS AN ELECTRONICALLY VERIFIED FINAL REPORT 08/15/2021 11:57 PM - Electronically signed by Parmjit Herrera M.D. BB: BÁRBARA Report ID: [id number] Reading Location: [id number] us Roxy Barros MD IMG CT PROCEDURES Final Result * ECG 12 lead (08/15/2021 9:57 PM ALARM SIGNALER) 08/15/2021 9:57 PM ALARM SIGNALER Narrative [facility] - 08/16/2021 8:38 AM ALARM SIGNALER Vent Rate: 69 bpm RR Interval: 859 msec SD Interval: 142 msec QRS Duration: 80 msec QT Interval: 393 msec QTC Interval: 413 msec P-R-T Chambers: 32 - 26 - 12 degrees SINUS RHYTHM NONSPECIFIC T-WAVE ABNORMALITY BORDERLINE ECG No change from prior EKG Electronically Signed By: Arnaldo Yan MD us Boone Meyers MD ECG ORDERABLES Fin al Result [facility] documented in this encounter Visit Diagnoses Diagnosis Weakness- Primary Other malaise and fatigue Paresthesia and pain of extremity Nausea Nausea alone Hiatal hernia Diaphragmatic hernia without mention of obstruction or gangrene Gastroesophageal reflux disease, unspecified whether esophagitis present documented in this encounter Administered Medications Inactive Administered Medications - up to 3 most recent administrations Medication Order MAR Action Action Date Dose Rate Site diphenhydrAMINE (BENADRYL) injection 12.5 mg 12.5 mg, intravenous, Administer over 2 Minutes, Once, On Thu08/16/21 at 0207, For 1 dose Given 08/16/2021 2:16 AM ALARM SIGNALER 12.5 mg ondansetron (ZOFRAN) injection 4 mg 4 mg, intravenous, Administer over 2 Minutes, Once, On Thu08/16/21 at 0207, For 1 dose Given 08/16/2021 2:20 AM ALARM SIGNALER 4 mg sodium chloride 0.9% bolus 1,000 mL 1,000 mL, intravenous, Once, On Thu08/16/21 at 0235, For 1 dose New Bag 08/16/2021 2:41 AM ALARM SIGNALER 1,000 mL documented in this encounter Active and Recently Administered Medications Times are shown in ALARM SIGNALER. Scheduled Medication Order 08/14/2021 08/15/2021 08/16/2021 diphenhydrAMINE (BENADRYL) injection 12.5 mg (COMPLETED) 12.5 mg, intravenous, Administer over 2 Minutes, Once, On Thu08/16/21 at 0207, For 1 dose 0216 (Given - Provid er: Clarisse Valles RN) ondansetron (ZOFRAN) injection 4 mg (COMPLETED) 4 mg, intravenous, Administer over 2 Minutes, Once, On Thu08/16/21 at 0207, For 1 dose 0220 (Given - Provid er: Clarisse Valles, KIET) sodium chloride 0.9% bolus 1,000 mL (COMPLETED) 1,000 mL, intravenous, Once, On Thu08/16/21 at 0235, For 1 dose 0241 (New Bag - Prov ider: Clarisse Valles, KIET)[id number] (Stopped - Provider: Francine Dorado RN) documented in this encounter Care Teams Roof Truss Detailer Relationship Specialty Start Date End Date Parmjit Dai MD PCP - General 12/31/20 Mere Landa NP Nurse Practitioner 02/07/20 Tico Burton MD Surgeon General Surgery 08/09/21 documented as of this encounter
--- OUTSIDE RECORDS SUMMARY | 2024-08-16 04:35 | XMS_ITS | Encounter Summary ---
Author Organization [facility] Healthcare Address [address] [place] [address] Care Team Providers Care Relay Telegrapher Name Role Phone Jazmine Hanson MD Unavailable Jazmine Hanson MD Primary Care Provider [phone] Encounter Details Date Type Department Care Team (Latest Contact Info) Description 02/03/2020 2:33 AM CDT - 02/03/2020 11:59 PM CDT Hospital Encounter [facility] [...] on file Legal Sex Female 10:06 AM MOLD TECHNICIAN Gender Identity Female 06/17/2024 7:02 AM [...] (Latest Contact Info) Description 09/07/2024 8:30 AM MOLD TECHNICIAN Hospital Encounter [facility] [address] [place] [phone] Forest Catherine MD [address] [place] [address] 09/07/2024 8:30 AM MOLD TECHNICIAN - 09/07/2024 9:00 AM MOLD TECHNICIAN Surgery [facility] [address] [place] [phone] Forest Catherine MD [address] [place] [address] EGD w/Endo Flip & YI placement Scheduled Procedures Name Priority Associated Diagnoses Date/Ti md ESOPHAGOGASTRODUODENOSCOPY Hiatal hernia Gastroesophageal reflux disease, unspecified whether esophagitis present 09/07/2024 8:30 AM MOLD TECHNICIAN documented as of this encounter Visit Diagnoses Not on filedocumented in this encounter Care Teams Relay Telegrapher Relationship Specialty Start Date End Date Jazmine Hanson MD [address] [place] [address] [address] TIANA L[address] [place] [address] PCP - General 01/26/20 12/30/20 Jazmine Hanson MD [address] [place] [address] [address] TIANA Lyle [address] [place] [address] Family Medicine 01/20/20 02/06/20 documented as of this encounter
--- OUTSIDE RECORDS SUMMARY | 2024-08-16 04:35 | XMS_ITS | Encounter Summary ---
Author Organization [facility] Healthcare Address [address] [place] [address] Care Team Providers Care Promotions Executive Producer Name Role Phone Mere Landa NP Unavailable Parmjit Dai MD Primary Care Provider [phone] Encounter Details Date Type Department Care Team (Latest Contact Info) Description 08/08/2021 6:39 PM TRANSCRIBING OPERATORS SUPERVISOR - 08/08/2021 8:20 PM TRANSCRIBING OPERATORS SUPERVISOR Hospital Encounter [facility] Discharge Disposition: [...] on file Legal Sex Female 10:06 AM TRANSCRIBING OPERATORS SUPERVISOR Gender Identity Female 06/17/2024 7:02 AM CDT [...] nausea or vomiting 30 tablet 08/10/2021 09/09/2021 busPIRone (BUSPAR) 15 mg tabletIndication s:Generalized Anxiety [...] Take 50 mg by mouth daily. 08/09/2021 dicyclomine (BENTYL) 10 mg capsule Take 20 mg by mouth 2 (two) times a day 09/24/2021 divalproex ER (DEPAKOTE ER) 500 mg 24 hr tabletIndication s:Bipolar Disorder Take 500 mg by mouth daily. 08/09/2021 flecainide (TAMBOCOR) 50 mg tablet Take 50 mg by mouth 2 (two) times a day 09/02/2022 metoclopramide (REGLAN) 10 mg tabletIndication s:gastroesophage al reflux disease Take 1 tablet (10 mg total) by mouth 3 (three) times a day before meals 90 tablet 08/10/2021 08/13/2021 naproxen (ANAPROX,ALEVE) 220 mg tablet Take by mouth as needed for pain. 08/09/2021 naproxen-diphenh ydramine 220-25 mg tablet Take by mouth. 08/09/2021 ondansetron (ZOFRAN) 4 mg tablet Take 1 tablet (4 mg total) by mouth every 6 (six) hours 12 tablet 01/25/2020 08/13/[address] (PROTONIX) 40 mg EC tablet Take 40 mg by mouth every 12 (twelve) hours 09/24/2021 primidone (MYSOLINE) 50 mg tabletIndication s:Essential tremor [...] (Latest Contact Info) Description 09/07/2024 8:30 AM TRANSCRIBING OPERATORS SUPERVISOR Hospital Encounter [facility] [address] [place] [phone] Forest Catherine MD [address] [address] 09/07/2024 8:30 AM TRANSCRIBING OPERATORS SUPERVISOR - 09/07/2024 9:00 AM TRANSCRIBING OPERATORS SUPERVISOR Surgery [facility] [address] [place] [phone] Forest Catherine MD [address] [address] EGD w/Endo Flip & YI placement Scheduled Procedures Name Priority Associated Diagnoses Date/Ti mt ESOPHAGOGASTRODUODENOSCOPY Hiatal hernia Gastroesophageal reflux disease, unspecified whether esophagitis present 09/07/2024 8:30 AM TRANSCRIBING OPERATORS SUPERVISOR documented as of this encounter Visit Diagnoses Not on filedocumented in this encounter Care Teams Promotions Executive Producer Relationship Specialty Start Date End Date Parmjit Dai MD PCP - General 12/31/20 Mere Landa NP Nurse Practitioner 02/07/20 documented as of this encounter
--- OUTSIDE RECORDS SUMMARY | 2024-08-16 04:35 | XMS_ITS | Encounter Summary ---
Author Organization [facility] Address [address] [place] [address] Care Team Providers Care Outbound Sales Agent Name Role Phone Mere Landa NP Unavailable [phone] Parmjit Dai MD Primary Care Provider [phone] Tico Burton MD Unavailable [phone] Reason for Visit * Reason Comments Abdominal Pain Patient is in office for abdominal pain. Patient states she was seeing another Gi physician at [facility]. Patient was diagnosed with IBs with Dr. Fountain and the other Gi physician. States this pain has been going on for a long time with no relief. Diarrhea Patient states she g oes back and forth between constipation and diarrhea Constipation * Consultation (Routine) - Closed Specialty Diagnoses / Procedures Referred By Loreta ledbetter Referred To Contact Gastroenterology Diagnoses Abdominal pain Germania Sorto MD Phone: tel: fax: Germania Sorto MD [address] [place] [address] [address] Phone: tel: fax: Referral ID Status Reason Start Date Expiration Date V isits Requested Visits Authorized [id number] Closed Specialty Services Required 09/02/2021 10/02/2022 1 1 Encounter Details Date Type Department Care Team (Latest Contact Info) Description 09/24/2021 10:45 AM QUALITY CONTROL TECHNICIAN Office Visit [facility] Gastroenterology at [address] [place] [phone] Richard Bowman NP [address] [facility] [address] [place] [address] Irritable bowel syndrome with both constipation and diarrhea (Primary Dx); Periumbilical abdominal pain; Cyclic vomiting syndrome; Chronic nausea; History of repair of hiatal hernia; Gastroesophageal reflux disease without esophagitis; Hepatic steatosis; History of colonoscopy with polypectomy Social History [...] on file Legal Sex Female 10:06 AM QUALITY CONTROL TECHNICIAN Gender Identity Female 06/17/2024 7:02 AM CDT Sexual Orientation Not on file documented as of this encounter Last Filed Vital Signs Vital Sign Reading Time Taken Comments Blood Pressure 96/82 09/24/2021 11:10 AM QUALITY CONTROL TECHNICIAN Pulse 55 09/24/2021 11:10 AM QUALITY CONTROL TECHNICIAN Temperature - - Respiratory Rate - - Oxygen Saturation 94% 09/24/2021 11:10 AM QUALITY CONTROL TECHNICIAN Inhaled Oxygen Concentration - - Weight 66.5 kg (146 lb 9.6 oz) 09/24/2021 11:10 AM QUALITY CONTROL TECHNICIAN Height 162.6 cm (5' 4 ) 09/24/2021 11:10 AM QUALITY CONTROL TECHNICIAN Body Mass Index 25.16 09/24/2021 11:10 AM QUALITY CONTROL TECHNICIAN documented in this encounter Patient Instructions * Patient Instructions* Richard Gracia NP - 09/24/2021 10:45 AM QUALITY CONTROL TECHNICIAN If you feel like you are super constipated, you have my permission to mix up heaping 6 capfuls of Miralax in 1 L of electrolyte replacement beverage and drink over 2 hours. Take 2 Dulcolax (Bisacodyl) tabs or 2 Senna (brad-colace) tabs when you first start drinking the solution. The goal is to get a lot of stool out this day. You have my permission to do this 2-3 times monthly as needed. On a regular basis, take: 1-2 capfuls of Miralax nightly 2 Pericolace nightly (senna/sennoside-colace/docusate combo) it is a combo of stool softener and laxative. You can add in up to 2 additional colace stool softeners nightly as needed. Drop your Protonix down to 40 mg once daily. Zofran as needed. Bentyl 10-20 mg up to 4 times daily as needed, but I am fine if you take at least twice daily scheduled. We can consider adding back in some Amitriptyline to help with pain if you continue to have issues,but it can contribute to constipation so lets see how you do with the new regimen first before adding it. ITY CONTROL TECHNICIAN documented in this encounter Ordered Prescriptions Prescription Sig Dispense Quantity Refills Last Filled Start Date End Date senna-docusate (PERICOLACE) 8.6-50 mg Take 2 pills nightly for constipation management 180 tablet 3 09/24/2021 3 polyethylene glycol (MIRALAX) 17 gram/dose powder Take 1-2 capfuls nightly for constipation management. 595 g 3 09/24/2021 3 dicyclomine (BENTYL) 10 mg capsule Take 2 capsules (20 mg total) by mouth 4 (four) times a day as needed (abdominal pain/cramping) 240 capsule 5 09/24/2021 3 ondansetron (ZOFRAN) 4 mg tablet Take 1 tablet (4 mg total) by mouth every 6 (six) hours 30 tablet 5 09/24/[address] (PROTONIX) 40 mg EC tablet Take 1 tablet (40 mg total) by mouth daily 90 tablet 3 09/24/2021 3 documented in this encounter Progress Notes * Richard Gracia NP - 09/24/2021 10:45 AM CST Images from the original note were not included. PATIENT DEMOGRAPHICS Sarahy Gill is a 51 y.o. White female. PATIENT'S CARE TEAM Patient Care Team: Parmjit Dai MD as PCP - General Mere Landa NP (Nurse Practitioner) Tico Burton MD as Surgeon (General Surgery) EMOGRAPHICS CHIEF COMPLAINT Chief Complaint Patient presents with ??? Abdominal Pain Patient is in office for abdominal pain. Patient states she was seeing another Gi physician at [facility]. Patient was diagnosed with IBs with Dr. Fountain and the other Gi physician. States this pain has been going on for a long time with no relief. ??? Diarrhea Patient states she goes back and forth between constipation and diarrhea ??? Constipation HPI New or existing patient visit: New. Referring Provider: Parmjit Dai MD Nkechi is here today to establish care for her GI health. She does carry a diagnosis of cyclic vomiting syndrome. Prior patient of Dr. Urbano at [facility], but just felt like she was getting nowhere with her GI issues over time. Has had 5+ ER visits for GI related issues in last 1-2 months. Chronically has periumbilical pain, lower abdominal cramping, gas, bloating. Alternates between one extremeto the other (constipation/diarrhea). Will go from skipping bowel movements for three or four days to having 5-6 bowel movements daily. Sometimes has urgency. Has a combination of loose and formed stools. Frequently feels nauseated. Occasionally vomits, but dry heaves more than anything else. Weight goes up and down but is within her usual range. Heartburn and reflux are well controlled. No dark stools bloody stools, rectal pain, or rectal bleeding. No incontinency issues. No seizure history, but has tried Reglan in the past and not tolerated it. She has tried cutting out processed cheeses. Tries to follow a low FODMAP diet. She has never triedLinzess or Amitiza. Takes MiraLax only whenever she is miserable. Previously took amitriptyline andfelt that it helped with her chronic GI symptoms. Not sure why it was stopped. Heartburn and reflux are well controlled with rare breakthrough symptoms. Has been taking Protonix 40 mg b.i.d. for more than a year. No NSAID or aspirin use. Has history of Afib and TIAs. Takes Eliquis. History of hiatal hernia repair in 2012. Has had an EGD sometime in the last few years and believes that wrap was intact. GB previously surgically removed. She takes Zofran p.r.n. and Bentyl p.r.n. with some positive relief from her symptoms. No alcohol use, drug use, or tobacco use. She is going to consider seeing a local specialist who does hair testing for food sensitivities. CT abdomen/pelvis with contrast done on 09/09/2021 [...] well controlled with rare breakthrough symptoms. Has frequent nausea with occasional vomiting. Has frequent dry heaving. Has chronic periumbilical pain and lower abdominal cramping. Chronically has gas and bloating issues. Chronically alternates between constipation and diarrhea. Has a combination of loose and formed stools. Sometimes has fecal urgency. No incontinence issues. No bowel habit changes. No dark, black, or bloody bowel movements. No rectal pain or bleeding. Genitourinary: Negative for difficulty urinating, dysuria, frequency, and urgency. Musculoskeletal: Negative for arthralgias and myalgias. Skin: Negative for pallor and rash. Neurological: Negative for dizziness, light-headedness, and headaches. Psychiatric/Behavioral: Negative for decreased concentration, dysphoric mood, and sleep disturbance. The patient is not nervous/anxious. PHYSICAL EXAM BP 96/82 (BP Location: Left arm, Patient Position: Sitting) Pulse 55 Ht 162.6 cm (5' 4 ) Wt 66.5 kg (146 lb 9.6 oz) SpO2 94% BMI 25.16 kg/m?? No LMP recorded. Patient is postmenopausal. [...] sounds are normal. Palpations: Abdomen is soft, but bloated. Tenderness: Mild periumbilical tenderness noted. There is no guarding or [...] constipation and diarrhea (Primary) Periumbilical abdominal pain - Ambulatory referral to Gastroenterology - dicyclomine (BENTYL) 10 mg capsule; Take 2 capsules (20 mg total) by mouth 4 (four) times a day as needed (abdominal pain/cramping) - polyethylene glycol (MIRALAX) 17 gram/dose powder; Take 1-2 capfuls nightly for constipation management. - senna-docusate (PERICOLACE) 8.6-50 mg; Take 2 pills nightly for constipation management Chronic issue Still problematic. Chronically has periumbilical pain, lower abdominal cramping, gas,bloating. Alternates between one extreme to the other (constipation/diarrhea). Will go from skipping bowel movements for three or four days to having 5-6 bowel movements daily. Sometimes has urgency.Has a combination of loose and formed stools. She is going to consider seeing a local specialist who does hair testing for food sensitivities. Advised to stick to Low FODMAP eating as much as possible, identifying and avoiding triggers. She was given the following instructions to follow: If you feel like you are super constipated, you have my permission to mix up heaping 6 capfuls of Miralax in 1 L of electrolyte replacement beverage and drink over 2 hours. Take 2 Dulcolax (Bisacodyl) tabs or 2 Senna (brad-colace) tabs when you first start drinking the solution. The goal is to get a lot of stool out this day. You have my permission to do this 2-3 times monthly as needed. On a regular basis, take: 1-2 capfuls of Miralax nightly 2 Pericolace nightly (senna/sennoside-colace/docusate combo) it is a combo of stool softener and laxative. You can add in up to 2 additional colace stool softeners nightly as needed. Bentyl 10-20 mg up to 4 times daily as needed, but I am fine if you take at least twice daily scheduled. We can consider adding back in some Amitriptyline to help with pain if you continue to have issues,but it can contribute to constipation so lets see how you do with the new regimen first before adding it. Cyclic vomiting syndrome Chronic nausea Frequently feels nauseated. Occasionally vomits, but dry heaves more than anything else. Weight goes up and down but is within her usual range. This is a chronic issue without an acute change. Can continue PRN Zofran. Refill sent and usually works well for her. We can consider adding back in some Amitriptyline to help with pain and these symptoms if she continues to have issues with them, but it can contribute to constipation so I want to see how she does with her new bowel regimen first beforeadding it back in. Also, better control of her lower GI symptoms, will likely positively effect herproblematic upper GI symptoms. Will see how she is doing at follow up and go from there. Recommend she try to eat small, frequent, healthy meals and avoid alcohol/drug use. History of repair of hiatal hernia Gastroesophageal reflux disease without esophagitis - pantoprazole DR (PROTONIX) 40 mg EC tablet; Take 1 tablet (40 mg total) by mouth daily - ondansetron (ZOFRAN) 4 mg tablet; Take 1 tablet (4 mg total) by mouth every 6 (six) hours Heartburn and reflux are well controlled with rare breakthrough symptoms. Has had EGD in past few years that showed intact wrap from prior HH repair. Has been on Protonix 40 mg b.i.d., consistently for more than a year. Will reduce dosing to 40 mg once daily on her Protonix to reduce her future risk of long-term side effects from taking the high-dose medication on a daily basis. Will see how she is doing at follow-up and consider reducing dosing further to 20 mg daily or 40 mg every other day. ~Patient was counseled to: -Avoid trigger foods [...] surveillance colonoscopy schedule and due in 2024. Return in about 8 weeks (around 11/19/2021) for IBS . Will attempt to obtain copy of all prior GI records from Dr. Aiken and [facility] in [place], [place]. Medication(s) and/or immunization(s) uses and side effects briefly discussed. Patient verbalizes understanding of all instructions provided today and agrees with plan. MEDICAL HISTORY Patient's active problem list, medical history, surgical history, social history, and family history were reviewed and updated as needed. Patient Active Problem List Diagnosis Date Noted ??? Periumbilical abdominal pain 09/24/2021 ??? Irritable bowel syndrome with both constipation and diarrhea 09/24/2021 ??? Chronic nausea 09/24/2021 ??? History of repair of hiatal hernia 09/24/2021 ??? Gastroesophageal reflux disease without esophagitis 09/24/2021 ??? Dysuria 08/13/2021 ??? Hypokalemia ??? TIA (transient ischemic attack) 08/11/2021 ??? Cyclic vomiting syndrome 08/09/2021 ??? Bipolar affect, depressed (CMS/HCC) ([facility]) 08/09/2021 ??? Intussusception intestine (CMS/HCC) ([facility]) 08/09/2021 ??? Hypertension 08/08/2021 ??? Abdominal pain, generalized 08/08/2021 ??? Atrial fibrillation (CMS/HCC) ([facility]) 05/15/2020 ??? Essential tremor 10/12/2018 ??? [...] DR (PROTONIX) 40 mg EC tablet ??? SUMAtriptan (IMITREX) 50 mg tablet ??? polyethylene glycol (MIRALAX) 17 gram/dose powder ??? senna-docusate (PERICOLACE) 8.6-50 mg Medications were reviewed and updated as needed. ALLERGIES Allergies Allergen Reactions ??? Compazine [Prochlorperazine] Other (See comments) made me feel weird, odd also agitation ??? Phenergan [Promethazine] Agitation ??? Zithromax [Azithromycin] Stomach upset Allergies were reviewed and updated as needed. Total time spent on the date of the idni-qp-lkix encounter, including both btcj-ki-pdus time (including staff/provider time spent providing education) and xcc-uwcl-se-face time (pre-charting, reviewing chart, post-charting) was 45 minutes. This note is dictated and transcribed by [employer]. Solar Installation Manager variances may occur. Despite proofreading, typographical errors may occur. My collaborating physician is Dr. Germania Sorto- Gastroenterology. Richard Gracia NP ITY CONTROL TECHNICIAN documented in this encounter Plan of Treatment Upcoming Encounters Date Type Department Care Team (Latest Contact Info) Description 09/07/2024 8:30 AM QUALITY CONTROL TECHNICIAN Hospital Encounter [facility] [address] [place] [phone] Forest Catherine MD [address] [address] 09/07/2024 8:30 AM QUALITY CONTROL TECHNICIAN - 09/07/2024 9:00 AM QUALITY CONTROL TECHNICIAN Surgery [facility] [address] [place] [phone] Forest Catherine MD [address] [address] EGD w/Endo Flip & YI placement Scheduled Procedures Name Priority Associated Diagnoses Date/Ti me ESOPHAGOGASTRODUODENOSCOPY Hiatal hernia Gastroesophageal reflux disease, unspecified whether esophagitis present 09/07/2024 8:30 AM QUALITY CONTROL TECHNICIAN documented as of this encounter Visit Diagnoses Diagnosis Irritable bowel syndrome with both constipation and diarrhea- Primary Periumbilical abdominal pain Abdominal pain, periumbilic Cyclic vomiting syndrome Persistent vomiting Chronic nausea Nausea alone History of repair of hiatal hernia Gastroesophageal reflux disease without esophagitis Esophageal reflux Hepatic steatosis Other chronic nonalcoholic liver disease History of colonoscopy with polypectomy Other postprocedural status Hiatal hernia Diaphragmatic hernia without mention of obstruction or gangrene Gastroesophageal reflux disease, unspecified whether esophagitis present documented in this encounter Discontinued Medications Medication Sig Discontinue Reason Start Date End Da te pantoprazole DR (PROTONIX) 40 mg EC tablet Take 40 mg by mouth every 12 (twelve) hours Reorder 09/24/2021 dicyclomine (BENTYL) 10 mg capsule Take 20 mg by mouth 2 (two) times a day Reorder 09/24/2021 ondansetron (ZOFRAN) 4 mg tablet Take 1 tablet (4 mg total) by mouth every 6 (six) hours Reorder 09/09/2021 09/24/2021 documented as of this encounter Historical Medications * This list may reflect changes made after this encounter. hydrOXYzine (ATARAX) 25 mg tablet Take 25 mg by mouth 3 (three) times a day as needed 08/14/2021 09/02/2022 clonazePAM (KlonoPIN) 0.5 mg tablet Take 0.5 mg by mouth every morning 09/12/2021 09/02/2022 added in this encounter Orders Outpatient Referral Count Last Ordered Date Fir st Ordered Date AMB REFERRAL TO GASTROENTEROLOGY 1 09/24/19 22 documented in this encounter Care Teams Outbound Sales Agent Relationship Specialty Start Date End Date Parmjit Dai MD PCP - General 12/31/20 Mere Landa NP Nurse Practitioner 02/07/20 Tico Burton MD Surgeon General Surgery 08/09/21 documented as of this encounter
--- OUTSIDE RECORDS SUMMARY | 2024-08-16 04:35 | XMS_ITS | Encounter Summary ---
Author Organization [facility] Address [address] [place] [address] Care Team Providers Care Air Traffic Control Supervisor Name Role Phone Mere Landa NP Unavailable [phone] Parmjit Dai MD Primary Care Provider [phone] Tico Burton MD Unavailable [phone] Encounter Details Date Type Department Care Team (Late st Contact Info) Description 09/17/2021 8:30 AM GUEST SERVICES COORDINATOR Office Visit [facility] [address] [facility] [address] [place] [address] Say Nugent MD [address] [place] [address] [address] [place] [address] TIA (transient ischemic attack) (Primary Dx) Social History Tobacco Use Types [...] on file Legal Sex Female 10:06 AM GUEST SERVICES COORDINATOR Gender Identity Female 06/17/2024 7:02 AM CDT Sexual Orientation Not on file documented as of this encounter Last Filed Vital Signs Vital Sign Reading Time Taken Comments Blood Pressure 93/64 09/17/2021 8:41 AM GUEST SERVICES COORDINATOR Pulse 66 09/17/2021 8:41 AM GUEST SERVICES COORDINATOR Temperature - - Respiratory Rate - - Oxygen Saturation - - Inhaled Oxygen Concentration - - Weight 66.6 kg (146 lb 12.8 oz) 09/17/2021 8:41 AM GUEST SERVICES COORDINATOR Height 162.6 cm (5' 4 ) 09/17/2021 8:41 AM GUEST SERVICES COORDINATOR Body Mass Index 25.2 09/17/2021 8:41 AM GUEST SERVICES COORDINATOR documented in this encounter Progress Notes * Say Nugent MD - 09/17/2021 8:30 AM CST Subjective/Objective Patient ID: Sarahy Gill is a 51 y.o. female. Chief Complaint I am seeing this 51 y.o. female in consultation requested by Dr. Parmjit Dai MD for TIA HPI She had numbness of left face in 07/2021. It was associated with left facial drooping, weakness of left upper and lower extremities. It happened while she was watching TV. It was slightly weaker on left side. She was able to move them. It lasted for about 12 hours. She had PT/OT and physical therapy. No new episode since she was discharged. She has AF and has been on Eliquis. She was evaluated [facility]. Past Medical History: Diagnosis Date ??? Anxiety ??? Arthritis ??? Bipolar affect, depressed (CMS/HCC) ([facility]) ??? Cyclic vomiting syndrome ??? Depression ??? Headache, tension-type ??? Hypertension ??? Migraine ??? Stroke (CMS/HCC) ([facility]) ??? Weight loss Allergies Allergen Reactions ??? Compazine [Prochlorperazine] Other (See comments) made me feel weird, odd also agitation ??? Phenergan [Promethazine] Agitation ??? Zithromax [Azithromycin] Stomach upset Current Outpatient Medications Medication Sig Dispense Refill ??? apixaban (ELIQUIS) 5 mg tablet Take 5 mg by mouth 2 (two) times a day ??? atorvastatin (LIPITOR) 40 mg tablet Take 1 tablet (40 mg total) by mouth daily 30 tablet 1 ??? dicyclomine (BENTYL) 10 mg capsule Take 20 mg by mouth 2 (two) times a day ??? escitalopram (LEXAPRO) 10 mg tablet Take 10 mg by mouth daily ??? flecainide (TAMBOCOR) 50 mg tablet Take 50 mg by mouth 2 (two) times a day ??? metoprolol XL (TOPROL-XL) 25 mg extended release tablet Take 25 mg by mouth daily ??? ondansetron (ZOFRAN) 4 mg tablet Take 1 tablet (4 mg total) by mouth every 6 (six) hours 12 tablet 0 ??? pantoprazole DR (PROTONIX) 40 mg EC tablet Take 40 mg by mouth every 12 (twelve) hours ??? SUMAtriptan (IMITREX) 50 mg tablet Take 50 mg by mouth once as needed for migraine. May repeat dose once in 2 hours if no relief. Do not exceed 2 doses in 24 hours. No current facility-administered medications for this visit. has a current medication list which includes the following prescription(s): apixaban, atorvastatin,dicyclomine, escitalopram, flecainide, metoprolol xl, ondansetron, pantoprazole dr, and sumatriptan. Family History Problem Relation Age of Onset ??? Esophageal cancer Maternal Grandmother ??? Heart disease Maternal Grandmother ??? Stroke Maternal Grandmother ??? Hypertension Maternal Grandmother ??? Migraines Mother Social History Socioeconomic History ??? Marital status: Spouse name: Not on file ??? Number of children: Not on file ??? Years of education: Not on file ??? Highest education level: Not on file Occupational History ??? Not on file Tobacco Use ??? Smoking status: Former Smoker Start date: 1983 Quit date: 2000 Years since quittin.0 ??? Smokeless tobacco: Never Used ??? Tobacco comment: off and on Vaping Use ??? Vaping Use: Every day Substance and Sexual Activity ??? Alcohol use: No Comment: on occasion ??? Drug use: Yes Types: Marijuana Comment: occasionally ??? Sexual activity: Defer control/protection: Post-menopausal Other Topics Concern ??? Not on file Social History Narrative ??? Not on file Social Determinants of Health Financial Resource Strain: Not on file Food Insecurity: Not on file Transportation Needs: Not on file Physical Activity: Not on file Stress: Not on file Social Connections: Not on file Intimate Partner Violence: Not on file Housing Stability: Not on file BP 93/64 Pulse 66 Ht 162.6 cm (5' 4 ) Wt 66.6 kg (146 lb 12.8 oz) BMI 25.20 kg/m?? Physical Exam Mental status: alert, speech fluent, comprehension intact, follow command appropriately Cranial nerve: JOSEF, corneal reflex present. EOMI, VFF by confrontation method. Facial sensations symmetrical. Face symmetrical. shoulder shrug symmetrical b/l. tongue midline. Motor: bulk normal, tone normal, pronator drift negative. Strength 5/5. No abnormal movement. Sensation: LT Normal and symmetrical. Gait: normal Assessment/Plan I am seeing this 51 y.o. female in consultation requested by Dr. Parmjit Dai MD for TIA. She has AF Diagnoses and all orders for this visit: TIA (transient ischemic attack) (Primary) 1. Eliquis 5 mg b.i.d. 2. Atorvastatin 40 mg daily 3. Discussed risk modifications for TIA and stroke Review of investigations: 1. 08/12/2021 MRI of the brain without: No acute intracranial process. 2. 08/12/2021 carotid ultrasound: No high-degree stenosis. 3. 08/16/2021 EKG: Sinus rhythm. HR 69. 4. 08/12/2021 echocardiogram: 60-70%. No mural thrombosis or valvular vegetation. 5. 08/12/2021 cholesterol 192, triglyceride 70, HDL 55, LDL 123. Return if symptoms worsen or fail to improve. T SERVICES COORDINATOR documented in this encounter Plan of Treatment Upcoming Encounters Date Type Department Care Team (Latest Contact Info) Description 09/07/2024 8:30 AM GUEST SERVICES COORDINATOR Hospital Encounter [address] [phone] Forest Catherine MD [address] [place] [address] 09/07/2024 8:30 AM GUEST SERVICES COORDINATOR - 09/07/2024 9:00 AM GUEST SERVICES COORDINATOR Surgery [facility] [address] [place] [address] Forest Catherine MD [address] [place] [address] EGD w/Endo Flip & YI placement Scheduled Procedures Name Priority Associated Diagnoses Date/Ti me ESOPHAGOGASTRODUODENOSCOPY Hiatal hernia Gastroesophageal reflux disease, unspecified whether esophagitis present 09/07/2024 8:30 AM GUEST SERVICES COORDINATOR documented as of this encounter Visit Diagnoses Diagnosis TIA (transient ischemic attack)- Primary Unspecified transient cerebral ischemia Hiatal hernia Diaphragmatic hernia without mention of obstruction or gangrene Gastroesophageal reflux disease, unspecified whether esophagitis present documented in this encounter Discontinued Medications Medication Sig Discontinue Reason Start Date End Da te aspirin 325 mg tabletIndications:cerebr al ischemia,Cerebral Ischemia Take 1 tablet (325 mg total) by mouth daily for 1 dose Take until Aug 15- when you restart eliquis Alternate therapy 08/14/2021 09/17/2021 documented as of this encounter Care Teams Air Traffic Control Supervisor Relationship Specialty Start Date End Date Parmjit Dai MD PCP - General 12/31/20 Mere Landa NP Nurse Practitioner 02/07/20 Tico Burton MD Surgeon General Surgery 08/09/21 documented as of this encounter
--- OUTSIDE RECORDS SUMMARY | 2024-08-16 04:35 | XMS_ITS | Encounter Summary ---
Author Organization [facility] Healthcare Address [address] [place] [address] Care Team Providers Care Tailman Name Role Phone Mere Landa NP Primary Care Provider [phone] Jazmine Hanson MD Unavailable Reason for Visit * Reason Comments Abdominal Pain Vomiting Encounter Details Date Type Department Care Team (Late st Contact Info) Description 01/25/2020 5:18 AM CDT - 01/25/2020 8:21 AM CDT Emergency 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 RECRUITER Gender Identity Female 06/17/2024 7:02 AM CDT Sexual Orientation Not on file documented as of this encounter Last Filed Vital Signs Vital Sign Reading Time Taken Comments Blood Pressure 109/78 01/25/2020 8:16 AM CDT Pulse 76 01/25/2020 8:16 AM CDT Temperature 36.3 ??C (97.4 ??F) 01/25/2020 5:21 AM CD T Respiratory Rate 12 01/25/2020 8:16 AM CDT Oxygen Saturation 100% 01/25/2020 8:16 AM CDT Inhaled Oxygen Concentration - - Weight 62.1 kg (137 lb) 01/25/2020 5:21 AM CDT Height 162.6 cm (5' 4 ) 01/25/2020 5:21 AM CDT Body Mass Index 23.52 01/25/2020 5:21 AM CDT documented in this encounter Discharge Diagnoses Diagnosis Nausea with vomiting, unspecified - NAUSEA WITH VOMITING, UNSPECIFIED Irritable bowel syndrome without diarrhea - IRRITABLE BOWEL SYNDROME WITHOUT DIARRHEA Anxiety disorder, unspecified - ANXIETY DISORDER, UNSPECIFIED Major depressive disorder, single episode, unspecified - MAJOR DEPRESSIVE DISORDER, SINGLE EPISODE, UNSPECIFIED Acquired absence of other specified parts of digestive tract - ACQUIRED ABSENCE OF OTHER SPECIFIED PARTS OF DIGESTIVE TRACT Family history of ischemic heart disease and other diseases of the circulatory system - FAMILY HISTORY OF ISCHEMIC HEART DISEASE AND OTHER DISEASES OF THE CIRCULATORY SYSTEM Family history of stroke - FAMILY HISTORY OF STROKE Family history of stroke (cerebrovascular) Family history of malignant neoplasm of digestive organs - FAMILY HISTORY OF MALIGNANT NEOPLASM OF DIGESTIVE ORGANS Personal history of nicotine dependence - PERSONAL HISTORY OF NICOTINE DEPENDENCE Cannabis use, unspecified, uncomplicated - CANNABIS USE, UNSPECIFIED, UNCOMPLICATED documented in this encounter Discharge Instructions * Attachments The following attachments cannot be sent through Care Everywhere. * Vomiting and Diarrhea, Nonspecific (Adult) (Jamaican) documented in this encounter Medications at Time [...] 05/13/2018 021 documented as of this encounter Ordered Prescriptions Prescription Sig Dispense Quantity Refills Last Filled Start Date End Date ondansetron (ZOFRAN) 4 mg tablet Take 1 tablet (4 mg total) by mouth every 6 (six) hours 12 tablet 01/25/2020 08/13/2021 documented in this encounter Discharge Disposition Disposition Code Departure Means Destination Discharge to home or self care documented in this encounter ED Notes * Rekha Cheek MD - 01/25/2020 5:21 AM CDT HPI Chief Complaint Patient presents with ??? Abdominal Pain ??? Vomiting HPI 5:22 AM Sarahy Gill is a 49 y.o. female former smoker with a h/o IBS who presents to the ED with abdominal pain for 2 days. Associated symptoms include nausea and vomiting. No exacerbating or alleviating factors. Patient states she cannot tolerate PO. She states she has been hospitalized 3 times in the past year for the same symptoms, and was treated with antibiotics and nausea medication. She denies fever. No other complaints at this time. Patient History Past Medical History: Diagnosis Date ??? Anxiety [...] Smoking status: Former Smoker Start date: 1983 Last attempt to quit: 2000 Years since quittin.4 ??? Smokeless tobacco: Never Used ??? Tobacco comment: off and on Substance Use Topics ??? Alcohol use: No Comment: on occasion ??? Drug use: Yes Types: Marijuana Review of Systems Review of Systems Constitutional: Negative for fever. HENT: Negative for congestion. Eyes: Negative for redness. Respiratory: Negative for shortness of breath. Cardiovascular: Negative for chest pain. Gastrointestinal: Positive for abdominal pain, nausea and vomiting. Genitourinary: Negative for difficulty urinating. Musculoskeletal: Negative for joint swelling. Skin: Negative for rash. Neurological: Negative for headaches. Psychiatric/Behavioral: Negative for agitation. Physical Exam ED Triage Vitals [01/25/20 0521] Temp Pulse Resp BP SpO2 36.3 ??C (97.4 ??F) 88 18 151/96 100 % Temp src Heart Rate Source Patient Position BP Location FiO2 (%) Temporal -- -- -- -- Physical Exam Vitals signs and nursing note reviewed. Constitutional: General: She is not in acute distress. Appearance: She is well-developed. HENT: Head: Normocephalic and atraumatic. Right Ear: External ear normal. No drainage. Left Ear: External ear normal. No drainage. Nose: No rhinorrhea. Mouth/Throat: Mouth: Mucous membranes are moist. Eyes: Extraocular Movements: Extraocular movements intact. Conjunctiva/sclera: Conjunctivae normal. Neck: Musculoskeletal: Normal range of motion. Cardiovascular: Rate and Rhythm: Normal rate and regular rhythm. Heart sounds: Normal heart sounds. No murmur. Pulmonary: Effort: Pulmonary effort is normal. No respiratory distress. Breath sounds: Normal breath sounds. Abdominal: General: There is no distension. Palpations: Abdomen is soft. Tenderness: There is generalized abdominal tenderness. Musculoskeletal: Right lower leg: No edema. Left lower leg: No edema. Skin: General: Skin is warm and dry. Neurological: Mental Status: She is alert. Motor: Motor function is intact. Psychiatric: Behavior: Behavior is cooperative. Procedures MDM Labs Reviewed CBC WITH AUTO DIFFERENTIAL - Abnormal Result Value WBC 10.9 (*) Hgb 13.4 Hct 41.1 Plt 314 MPV 10.7 RBC 4.46 MCV 92.2 MCH 30.0 MCHC 32.6 RDW CV 12.8 RDW SD 43.7 NRBC abs 0.00 LACTATE - Abnormal Lactate 2.3 (*) DIFFERENTIAL AUTO - Abnormal Neutrophil abs 8.2 (*) Imm gran abs 0.0 Lymphocyte abs 1.8 Monocyte abs 0.7 Eosinophil abs 0.0 Basophil abs 0.0 Neutrophil pct 75.6 Imm gran pct 0.4 Lymphocyte pct 16.9 Monocyte pct 6.5 Eosinophil pct 0.2 Basophil pct 0.4 URINALYSIS AND REFLEX TO MICROSCOPIC AND CULTURE COMPREHENSIVE METABOLIC PANEL LIPASE PROTIME-INR CT Abdomen Pelvis W Contrast (Results Pending) BP 151/96 Pulse 88 Temp 36.3 ??C (97.4 ??F) (Temporal) Resp 18 Ht 162.6 cm (5' 4 ) Wt 62.1 kg (137 lb) SpO2 100% BMI 23.52 kg/m?? MDM Number of Diagnoses or Management Options Diagnosis management comments: 49-year-old female with multiple comorbidities including IBD the presents today for acute abdominal pain. Differential diagnosis includes appy flare versus diverticulitis versus other acute abdominal pelvic pathology. Amount and/or Complexity of Data Reviewed Clinical lab tests: ordered and reviewed Tests in the radiology section of CPT??: ordered and reviewed ED Course as of Jan 24 551 Time: 01/24 550 Comment: Patient care transferred to Dr. Weiss. ??Case and findings, including treatment plan,evaluations, consults, and lab/imaging results were discussed. By: Rekha Cheek MD No diagnosis found. This note is prepared by Kellie Scott, acting as a scribe for Rekha Cheek MD. I electronically signed this note at 5:51 AM on 01/25/2020. I, Rekha Cheek MD, have personally performed the services described in the documentation, reviewed the documentation, as recorded by the scribe in my presence, and it accurately and completely records my words and actions. Any errors in translation of speech to the EMR are related to software and not the clinician. Rekha Cheek MD 01/25/20550 * Kelby Keita RN - 01/25/2020 5:19 AM CDT Ambulate to room c/o abd pain and vomiting for last 2 days. States has hx of colitis. Denies difficulty with urination. States has had loose stools. documented in this encounter Miscellaneous Notes * ED Re-evaluation Note - Jovon Weiss MD - 01/25/2020 8:06 AM CDT ED Re-evaluation Received this patient in transfer from Dr. Cheek, she has been resting comfortably and has minimal nausea at this time. Discussed labs and CT report with her. She will follow-up with her GI doctor. Will discharge home. Jovon Weiss MD 01/25/20 0807 documented in this encounter Plan of Treatment Upcoming Encounters Date Type Department Care Team (Latest Contact Info) Description 09/07/2024 8:30 AM TECHNOLOGY RECRUITER Hospital Encounter [facility] [address] [place] [phone] Forest Catherine MD [address] [place] [phone] 09/07/2024 8:30 AM TECHNOLOGY RECRUITER - 09/07/2024 9:00 AM TECHNOLOGY RECRUITER Surgery [facility] [address] [place] [phone] Forest Catherine MD [address] [place] [address] EGD w/Endo Flip & YI placement Scheduled Procedures Name Priority Associated Diagnoses Date/Ti me ESOPHAGOGASTRODUODENOSCOPY Hiatal hernia Gastroesophageal reflux disease, unspecified whether esophagitis present 09/07/2024 8:30 AM TECHNOLOGY RECRUITER documented as of this encounter Procedures Procedure Name Priority Date/Time Associated Diagnosis Comments CT ABDOMEN PELVIS W CONTRAST ED 01/25/2020 7:05 AM CDT URINALYSIS AND REFLEX TO MICROSCOPIC AND CULTURE STAT 01/25/2020 6:48 AM CDT URINALYSIS, MICROSCOPIC ONLY STAT 01/25/2020 6:48 AM CDT LACTATE STAT 01/25/2020 5:34 AM CDT EGFR STAT 01/25/2020 5:34 AM CDT DIFFERENTIAL AUTO STAT 01/25/2020 5:3 4 AM CDT CBC WITH AUTO DIFFERENTIAL STAT 01/25/2020 5:34 AM CDT PROTIME-INR STAT 01/25/2020 5:34 AM CDT LIPASE STAT 01/25/2020 5:34 AM CDT COMPREHENSIVE METABOLIC PANEL STAT 01/25/2020 5:34 AM CDT documented in this encounter Results * CT Abdomen Pelvis W Contrast (01/25/2020 7:05 AM CDT) Anatomical Region Laterality Modality Body N/A Computed Tomogra phy 01/25/2020 7:14 AM CDT Impressions 01/25/2020 7:37 AM CDT 1. ??No CT evidence of a bowel obstruction. ??No evidence of diverticulitis. 2. ??2.3 x 2 cm masslike region of hypoattenuation at the gastroesophageal junction. ??Per report the patient has a history of prior hernia repair, and this may represent the sequela of that (such as a Gary fundoplication). ??This can be correlated with patient history as well as reports of prior multiple endoscopies. ??In the absence of prior surgery, this may represent a lesion such as a gastrointestinal stromal tumor and can be further evaluated with MRI. 3. ??Hepatic steatosis. Electronically signed by: Say Oswald M.D. Narrative 01/25/2020 7:37 AM CDT EXAMINATION: CT ABDOMEN PELVIS W CONTRAST ORDERING HEALTHCARE PROVIDER: REKHA CHEEK HISTORY: Abdominal pain, acute, nonlocalized. ??For one week ?? TECHNIQUE: CT abdomen and pelvis with intravenous and without oral contrast. ??Reconstructed coronal and sagittal MPR images reviewed. All images stored on PACS. ??Automated exposure control was used as a dose optimization technique for this examination. CONTRAST TYPE/DOSE: Optiray 320, 100 mL intravenous right AC COMPARISON: None available FINDINGS: Limited view of the lung bases is normal. ??The visualized heart is normal. Hepatic steatosis is present. ??There is focal fatty deposition adjacent to the falciform ligament. ??The gallbladder surgically absent. ??Possible dropped gallstone or surgical clip at the hepatic dome is noted. ??The common duct is normal in caliber for postcholecystectomy state. ??The pancreas and, spleen and adrenal glands are normal. Right renal cyst is present. ??Small left renal hypoattenuating lesion is too small to characterize. ??There is no hydronephrosis. ??The bladder is normal. There is a 2.3 x 2 cm masslike area of hypoattenuation at the gastroesophageal junction. ??The stomach is otherwise normal in appearance. ??The duodenum is normal in course. ??The small bowel is normal in course and morphology, without evidence of obstruction. The colon is normal. ??The appendix is visualized and is normal. The uterus is normal. ??There is no intra-abdominal free fluid or free air. ??There is no lymphadenopathy. ??Arterial atherosclerosis is present. ??Small fat-containing periumbilical hernia is present. Bone windows demonstrate no suspicious osseous lytic or blastic lesions. Procedure Note Say Oswald MD - 01/25/2020 EXAMINATION: CT ABDOMEN PELVIS W CONTRAST ORDERING HEALTHCARE PROVIDER: REKHA CHEEK HISTORY: Abdominal pain, acute, nonlocalized. For one week TECHNIQUE: CT abdomen and pelvis with intravenous and without oral contrast. Reconstructed coronal and sagittal MPR images reviewed. All images stored on PACS. Automated exposure control was used as a dose optimization technique for this examination. CONTRAST TYPE/DOSE: Optiray 320, 100 mL intravenous right AC COMPARISON: None available FINDINGS: Limited view of the lung bases is normal. The visualized heart is normal. Hepatic steatosis is present. There is focal fatty deposition adjacent to the falciform ligament. The gallbladder surgically absent. Possible dropped gallstone or surgical clip at the hepatic dome is noted. The common duct is normal in caliber for postcholecystectomy state. The pancreas and, spleen and adrenal glands are normal. Right renal cyst is present. Small left renal hypoattenuating lesion is too small to characterize. There is no hydronephrosis. The bladder is normal. There is a 2.3 x 2 cm masslike area of hypoattenuation at the gastroesophageal junction. The stomach is otherwise normal in appearance. The duodenum is normal in course. The small bowel is normal in course and morphology, without evidence of obstruction. The colon is normal. The appendix is visualized and is normal. The uterus is normal. There is no intra-abdominal free fluid or free air. There is no lymphadenopathy. Arterial atherosclerosis is present. Small fat-containing periumbilical hernia is present. Bone windows demonstrate no suspicious osseous lytic or blastic lesions. IMPRESSION: 1. No CT evidence of a bowel obstruction. No evidence of diverticulitis. 2. 2.3 x 2 cm masslike region of hypoattenuation at the gastroesophageal junction. Per report the patient has a history of prior hernia repair, and this may represent the sequela of that (such as a Gary fundoplication). This can be correlated with patient history as well as reports of prior multiple endoscopies. In the absence of prior surgery, this may represent a lesion such as a gastrointestinal stromal tumor and can be further evaluated with MRI. 3. Hepatic steatosis. Electronically signed by: Say Oswald M.D. Rekha Cheek MD IMG CT PROCEDURES Final Resu lt * (ABNORMAL) Urinalysis, microscopic only (01/25/2020 6:48 AM CDT) WBC, ur 0-5 0 - 5 /HPF [facility] ([place]) RBC, ur 0-2 0 - 2 /HPF [facility] ([place]) Epithelial cells, squamous, ur 1-5 0 - 5 /HPF [facility] ([place]) Mucous, ur Present(A) [facility] ([place]) Hyaline casts, ur 1-5 0 - 10 /LPF [facility] ([place]) Culture Reflex Comment Reflex conditions for urine culture (WBC >10) not met. [facility] ([place]) Urine 01/25/2020 6:48 AM CDT 01/25/2020 6:51 AM CDT Rekha Cheek MD LAB URINE ORDERABLES Final R esult [facility] ([place]) 1 [facility] Department [place] [address] * (ABNORMAL) Urinalysis reflex to microscopic and culture Urine (01/25/2020 6:48 AM CDT) Color, ur Yellow Yellow [facility] ([place]) Clarity, ur Clear Clear [facility] ([place]) Specific gravity, ur 1.013 1.010 - 1.025 [facility] pH, urine 7.0 [facility] ([place]) Protein, ur ql Trace Negative [facility] ([place]) Glucose, ur ql Negative Negative [facility] Ketones, ur 1+(A) Negative [facility] ([place]) Bilirubin, ur Negative Negative [facility] ([place]) Blood, ur Negative Negative [facility] Urobilinogen, ur <2.0 <2.0 mg/dL [facility] ([place]) Nitrite, ur Negative Negative [facility] ([place]) Leukocyte esterase, ur 1+(A) Negative [facility] ([place]) UA reflex comment Reflex to microscopic UA will be performed. [facility] ([place]) Urine 01/25/2020 6:48 AM CDT 01/25/2020 6:51 AM CDT Narrative [facility] ([place]) - 01/25/2020 6:54 AM CDT ?? Urine pH is affected by diet, medications, systemic acid-base disturbances, and renal tubular function. ??pH may affect urinary stone formation. ??For example, urine pH below 6.0 may help reduce the tendency for calcium phosphate stones and pH greater than 6.0 may reduce the tendency for uric acid stone formation. Source: [facility]. Last revised 09-10-2017 us Rekha Cheek MD LAB MICROBIOLOGY - GENERAL O RDERABLES Final Result [facility] ([place]) 1 [facility] Department [place] [address] * eGFR (01/25/2020 5:34 AM CDT) eGFR 97 mL/min/1.7 3 m2 [facility] ([place]) Comment: Interpretive Data Reference Interval Normal ?>/= 90 mL/min/1.73m2 Mildly decreased* ? 60 - 89 mL/min/1.73m2 Mildly to moderately decreased ?45 - 59 mL/min/1.73m2 Moderately to severely decreased ??30 - 44 mL/min/1.73m2 Severely decreased ?15 - 29 mL/min/1.73m2 Kidney Failure ?< 15 ??mL/min/1.73m2 *Relative to young adult level If -Mozambican multiply value by 1.16. Estimated glomerular filtration rate is determined by [...] 70. Current interpretive data was last reviewed 2016. Blood specimen (specimen) 01/25/2020 5:34 AM CDT 01/25/2020 5:36 AM CDT us Rekha Cheek MD LAB BLOOD ORDERABLES Final R esult [facility] ([place] 1 [facility] Department [place] [address] * (ABNORMAL) Differential, auto (01/25/2020 5:34 AM CDT) Neutrophil abs 8.2(H) 1.7 - 6.5 K/cumm [facility] ([place]) Imm gran abs 0.0 0.0 - 0.1 K/cumm [facility] ([place]) Lymphocyte abs 1.8 0.8 - 3.3 K/cumm [facility] ([place]) Monocyte abs 0.7 0.2 - 0.8 K/cumm [facility] ([place]) Eosinophil abs 0.0 0.0 - 0.5 K/cumm [facility] ([place]) Basophil abs 0.0 0.0 - 0.1 K/cumm [facility] ([place]) Neutrophil pct 75.6 % [facility] ([place]) Comment: Interpretive [...] was last revised on 2017. Lymphocyte pct 16.9 % [facility] ([place]) Comment: Interpretive Data Percent cell count reference ranges are not reported, since discordance with absolute values may lead to misinterpretation of CBC data. Current Interpretive Data was last revised on 2017. Monocyte pct 6.5 % [facility] ([place]) Comment: Interpretive Data [...] revised on 2017. Basophil pct 0.4 % [facility] ([place]) Comment: Interpretive Data Percent cell count reference ranges are not reported, since discordance with absolute values may lead to misinterpretation of CBC data. Current Interpretive Data was last revised on 2017. Blood specimen (specimen) 01/25/2020 5:34 AM CDT 01/25/2020 5:36 AM CDT us Rekha Cheek MD LAB BLOOD ORDERABLES Final R esult [facility] ([place]) 1 [facility] Department [place] [address] * Protime-INR (01/25/2020 5:34 AM CDT) PT 12.5 9.5 - 13.0 sec [facility] ([place]) INR 1.1 0.9 - 1.2 [facility] ([place]) Comment: Interpretive data Oral anticoagulant therapeutic ranges: Venous thromboembolism prophylaxis or treatment: 2.0-3.0 CARDIOLOGY Standard range: 2.0-3.0 High-intensity range: 2.5-3.5 Refer to indication-specific guidelines for appropriate target ranges for prosthetic heart valve replacement. Current interpretive data was last revised on 2019. Blood specimen (specimen) 01/25/2020 5:34 AM CDT 01/25/2020 5:36 AM CDT Rekha Cheek MD LAB BLOOD ORDERABLES Final R esult Performing Organization Address City/[facility]/ZIP Co de Phone Number [facility] ([place]) 1 [facility] [place] [address] * (ABNORMAL) Lactate (01/25/2020 5:34 AM CDT) Lactate 2.3(H) 0.7 - 2.0 mmol/L [facility] ([place]) Blood specimen (specimen) 01/25/2020 5:34 AM CDT 01/25/2020 5:36 AM CDT Rekha Cheek MD LAB BLOOD ORDERABLES Final R esult Performing Organization Address [facility]/[place] Co de Phone Number [facility] ([place]) 1 [facility] [place] [address] * Lipase (01/25/2020 5:34 AM CDT) Lipase 56 10 - 99 Units/L [facility] ([place]) Blood specimen (specimen) 01/25/2020 5:34 AM CDT 01/25/2020 5:36 AM CDT Rekha Cheek MD LAB BLOOD ORDERABLES Final R esult Performing Organization Address City/[facility]/[place] Co de Phone Number [facility] ([place]) 1 [facility] [place] [address] * Comprehensive metabolic panel (01/25/2020 5:34 AM CDT) Sodium 142 135 - 145 mmol/L [facility] ([place]) Potassium, pl 3.6 3.3 - 4.9 mmol/L [facility] ([place]) Chloride 101 97 - 110 mmol/L [facility] ([place]) CO2 27 22 - 32 mmol/L [facility] ([place]) Anion gap 15 2 - 15 mmol/L [facility] ([place]) BUN 16 8 - 25 mg/dL [facility] ([place]) Creatinine 0.72 0.60 - 1.10 mg/dL [facility] ([place]) Glucose 152 70 - 199 mg/dL [facility] ([place]) [...] - 8.5 g/dL [facility] ([place]) Albumin 5.0 3.5 - 5.0 g/dL [facility] ([place]) Alk phos 72 40 - 130 Units/L [facility] ([place]) ALT 11 7 - 45 Units/L [facility] ([place]) AST 32 10 - 45 Units/L [facility] ([place]) Blood specimen (specimen) 01/25/2020 5:34 AM CDT 01/25/2020 5:36 AM CDT us Rekha Cheek MD LAB BLOOD ORDERABLES Final R esult [facility] ([place]) 1 [facility] Department [place] [address] * (ABNORMAL) CBC with auto differential (01/25/2020 5:34 AM CDT) WBC 10.9(H) 3.8 - 9.9 K/cumm [facility] ([place]) Hgb 13.4 11.9 - 15.5 g/dL [facility] ([place]) Hct 41.1 35.6 - 45.5 % [facility] ([place]) Plt 314 150 - 400 K/cumm [facility] ([place]) MPV 10.7 9.1 - 12.3 fL [facility] ([place]) RBC 4.46 3.90 - 5.20 M/cumm [facility] ([place]) MCV 92.2 81.3 - 96.4 fL [facility] ([place]) MCH 30.0 27.1 - 33.3 pg [facility] ([place]) MCHC 32.6 32.3 - 35.7 g/dL [facility] ([place]) RDW CV 12.8 11.1 - 14.9 % [facility] ([place]) RDW SD 43.7 35.7 - 48.1 fL [facility] ([place]) NRBC abs 0.00 0.00 - 0.01 K/cumm [facility] ([place]) Blood specimen (specimen) 01/25/2020 5:34 AM CDT 01/25/2020 5:36 AM CDT us Rekha Cheek MD LAB BLOOD ORDERABLES Final R esult [facility] ([place]) 1 [facility] Department [place] [address] documented in this encounter Visit Diagnoses Diagnosis Non-intractable vomiting with nausea, unspecified vomiting type- Primary Hiatal hernia Diaphragmatic hernia without mention of obstruction or gangrene Gastroesophageal reflux disease, unspecified whether esophagitis present documented in this encounter Administered Medications Inactive Administered Medications - up to 3 most recent administrations Medication Order MAR Action Action Date Dose Rate Site ioversoL (OPTIRAY 320) intravenous syringe 100 mL 100 mL, intravenous, Once in imaging, contrast, Starting on Thu01/25/20 at 0656, For 1 dose Given 01/25/2020 6:57 AM CDT 100 mL LORazepam (ATIVAN) injection 1 mg 1 mg, intravenous, Once, On Thu01/25/20 at 0806, For 1 dose, For IV administration, dilute with equal volume of 0.9% sodium chloride. Do not exceed a rate of 2 mg/minute Given 01/25/2020 8:12 AM CDT 1 mg metoclopramide (REGLAN) injection 10 mg 10 mg, intravenous, Administer over 1 Minutes, Once, On Thu01/25/20 at 0649, For 1 dose Given 01/25/2020 6:52 AM CDT 10 mg ondansetron (ZOFRAN) injection 4 mg 4 mg, intravenous, Administer over 2 Minutes, Once, On Thu01/25/20 at 0525, For 1 dose, Indications: Nausea, VomitingIndications:Nausea, Vomiting Given 01/25/2020 5:37 AM CDT 4 mg sodium chloride 0.9% bolus 1,000 mL 1,000 mL, intravenous, at 1,000 mL/hr, Administer over 1 Hours, Once, On Thu01/25/20 at 0525, For 1 dose New Bag 01/25/2020 5:37 AM CDT 1,000 mL 100 0 mL/hr documented in this encounter Active and Recently Administered Medications Times are shown in CDT. Scheduled Medication Order 01/23/2020 01/24/2020 01/25/2020 LORazepam (ATIVAN) injection 1 mg (COMPLETED) 1 mg, intravenous, Once, On Thu01/25/20 at 0806, For 1 dose, For IV administration, dilute with equal volume of 0.9% sodium chloride. Do not exceed a rate of 2 mg/minute 0812 (Given - Provid er: Yadira Babb RN) metoclopramide (REGLAN) injection 10 mg (COMPLETED) 10 mg, intravenous, Administer over 1 Minutes, Once, On Thu01/25/20 at 0649, For 1 dose 0652 (Given - Provid er: Yadira Babb RN) ondansetron (ZOFRAN) injection 4 mg (COMPLETED) 4 mg, intravenous, Administer over 2 Minutes, Once, On Thu01/25/20 at 0525, For 1 dose, Indications: Nausea, Vomiting 0537 (Given - Provid er: Kelby Keita RN) sodium chloride 0.9% bolus 1,000 mL (COMPLETED) 1,000 mL, intravenous, at 1,000 mL/hr, Administer over 1 Hours, Once, On Thu01/25/20 at 0525, For 1 dose 0537 (New Bag - Prov ider: Kelby Keita RN)0649 (Stopped - Provider: Yadira Babb RN) PRN Medication Order 01/23/2020 01/24/2020 01/25/2020 ioversoL (OPTIRAY 320) intravenous syringe 100 mL (COMPLETED) 100 mL, intravenous, Once in imaging, contrast, Starting on Thu01/25/20 at 0656, For 1 dose 0657 (Given - Provid er: Elizabeth Eubanks, RT - Comment: [id number]) documented in this encounter Orders Nursing Count Last Ordered Date First Orde red Date CARDIO RESPIRATORY MONITORING 1 01/25/2020 CONTINUOUS PULSE OXIMETRY 1 01/25/2020 IV Count Last Ordered Date First Orde red Date INSERT PERIPHERAL IV 1 01/25/2020 documented in this encounter Care Teams Tailman Relationship Specialty Start Date End Date Mere Landa V., BALANCE WEIGHER PCP - General Nurse Practitioner 01/20/20 01/25/20 Jazmine Hanson MD [address] [place] [address] DR MONTIEL B [facility] [address] [place] [address] Family Medicine 01/20/20 02/06/20 documented as of this encounter
--- OUTSIDE RECORDS SUMMARY | 2024-08-16 04:35 | XMS_ITS | Encounter Summary ---
Author Organization [facility] Address [address] [place] [address] Care Team Providers Care Lace Stripper Name Role Phone Mere Landa NP Unavailable [phone] Parmjit Dai MD Primary Care Provider [phone] Tico Burton MD Unavailable [phone] Reason for Visit * Reason Comments Nausea Patient reports naus ea x month. Patient reports not having an appetite. 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 Gender Identity Female 06/17/2024 7:02 AM CDT Sexual Orientation Not on file documented as of this encounter Last Filed Vital Signs Vital Sign Reading Time Taken Comments Blood Pressure 112/74 12/16/2021 11:12 AM CDT Pulse 52 12/16/2021 11:12 AM CDT Temperature - - Respiratory Rate - - Oxygen Saturation 95% 12/16/2021 11:12 AM CDT Inhaled Oxygen Concentration - - Weight 64 kg (141 lb) 12/16/2021 11:12 AM CDT Height 162.6 cm (5' 4 ) 12/16/2021 11:12 AM CDT Body Mass Index 24.2 12/16/2021 11:12 AM CDT documented in this encounter Ordered Prescriptions Prescription Sig Dispense Quantity Refills Last Filled Start Date End Date lubiprostone (AMITIZA) 24 mcg capsule Take 1 capsule (24 mcg total) by mouth 2 (two) times a day with meals 60 capsule 5 12/16/2021 documented in this encounter Progress Notes * Richard Gracia NP - 12/16/2021 11:15 AM CDT Images from the original note were not included. PATIENT DEMOGRAPHICS Sarahy Gill is a 51 y.o. White female. PATIENT'S CARE TEAM Patient Care Team: Parmjit Dai MD as PCP - Mere Orellana NP (Nurse Practitioner) Tico Burton MD as Surgeon (General Surgery) EMOGRAPHICS CHIEF COMPLAINT Chief Complaint Patient presents with ??? Nausea Patient reports nausea x month. Patient reports not having an appetite. ??? Weight Loss Patient reports loosing 7 pounds ??? Constipation Patient reports stools are not regular HPI New or existing patient visit: Existing. Referring Provider: Parmjit Dai MD Nkechi is here today for routine follow up visit; WILLEM 10/29- down 7 lbs. States that she has had somenausea and decreased appetite for the last month. Complains of occasional cramping and upper abdominal discomfort just above the belly button and across the abdomen. Has some constipation and irregularity issues. No diarrhea issues. Has some gas and bloating issues. Manages her chronic constipationwith one cap full of MiraLax nightly, two senna daily, and two Colace daily. Takes Bentyl 3-4 timesdaily for the cramping, which helps. No side effect issues. No vomiting. No bright red blood per rectum. No rectal pain. Tries to follow a low FODMAP diet. Occasional heartburn and reflux, but nothing significant; for the most part is well controlled on Protonix 40 mg daily. Uses Zofran p.r.n. for the nausea, which helps; needs refill. Has tried Reglan in the past and is intolerant of it. She does take Protonix 40 mg daily. She is chronically anticoagulated on Eliquis. Used to have cyclic vomiting issues, but no vomiting issues in several months.History of hiatal hernia repair in 2012. Has had an EGD sometime in the last few years and believes that wrap was intact. GB previously surgically removed. No alcohol use or drug use. Former smoker. Vapes nicotine. No NSAID use. MEDICAL HISTORY Patient's active problem list, medical history, surgical history, social history, and family history were reviewed and updated as needed. Patient Active Problem List Diagnosis Date Noted ??? Nausea and vomiting 12/18/2021 ??? Marijuana [...] syndrome 08/09/2021 ??? Bipolar affect, depressed (CMS/HCC) ([facility]) 08/09/2021 ??? Intussusception intestine (CMS/HCC) ([facility]) 08/09/2021 ??? Hypertension 08/08/2021 ??? Abdominal pain, generalized 08/08/2021 ??? Atrial fibrillation (CMS/HCC) ([facility]) 05/15/2020 ??? Essential tremor 10/12/2018 ??? Jerky body movements 10/12/2018 ??? Irritable bowel syndrome with both constipation and diarrhea 02/23/2018 ??? Orthostatic dizziness 09/16/2016 ??? Palpitations 07/29/2016 ??? Migraine headache 07/29/2016 Past Medical History: Diagnosis Date ??? Anxiety ??? Arthritis ??? Bipolar affect, depressed (CMS/HCC) (HCC) ??? Cyclic vomiting syndrome ??? Depression ??? Headache, tension-type ??? Hypertension ??? Migraine ??? Stroke (CMS/HCC) ([facility]) ??? Weight loss Past Surgical History: [...] capsule ??? lubiprostone (AMITIZA) 24 mcg capsule ??? nortriptyline (PAMELOR) 25 mg capsule Medications were reviewed and updated as [...] problematic depression, problematic anxiety. PHYSICAL EXAM BP 112/74 (BP Location: Right arm, Patient Position: Sitting) Pulse 52 Ht 162.6 cm (5' 4 ) Wt64 kg (141 lb) SpO2 95% BMI 24.20 kg/m?? No LMP recorded. Patient is postmenopausal. [...] person, place, time. Psychiatric: Mood/behavioral normal. TESTS/LABS/PROCEDURES 09/09/21-CT abdomen/pelvis with contrast noted: a focus [...] both constipation and diarrhea (primary encounter diagnosis) (R10.33) Periumbilical abdominal pain Chronic issue; better controlled; will continue Bentyl p.r.n./Low FODMAP diet; will continue bowel regimen with 1 capful miralax nightly, two Colace daily, and two senna daily. Going to try her on Amitiza 24 mcg BID, if insurance will cover and she can try stopping other meds and slowly adding backin, as needed, depending on her response to Amitiza. -Celiac reflex panel, -Pancreatic elastase, stool -Consider sending for hydrogen breath test to rule out the possibility of SIBO in the future. (R11.0) Chronic nausea Chronic issue; used to be associated with vomiting, but now no longer is. -Celiac reflex panel, -Pancreatic elastase, stool - NM Gastric Emptying -Consider sending for hydrogen breath test to rule out the possibility of SIBO in the future. (Z98.890, Z87.19) History of repair of hiatal hernia (K21.9) Gastroesophageal reflux disease without esophagitis Chronic issue. Better control and has been in the past. Will continue Protonix 40 mg daily. GERD precautions advised/discussed and handout provided. Advised to avoid NSAIDs/alcohol. (Z98.890, Z86.010) History of colonoscopy with polypectomy Due for C-scope in 2024. (K76.0) Hepatic steatosis Chronic; stable issue. Weight loss, blood sugar control, healthy diet, increased exercise, alcohol avoidance (other than rare moderation)-all strongly advised. Return in about 6 weeks (around 01/27/2022) for IBS with constipation and chronic nausea . Medication(s) and/or immunization(s) uses and side effects briefly discussed. Patient verbalizes understanding of all instructions provided today and agrees with plan. Total time spent on the date of the [id number] encounter, including both tgso-km-kxtz time (including staff/provider time spent providing education) and mow-vasg-yp-face time (pre-charting, reviewing chart, post-charting) was 30 minutes. This note is dictated and transcribed by [employer]. Computed Tomography Technician variances may occur. Despite proofreading, typographical errors may occur. My collaborating physician is Dr. Germania Sorto- Gastroenterology. Richard Gracia NP documented in this encounter Plan of Treatment Upcoming Encounters Date Type Department Care Team (Latest Contact Info) Description 09/07/2024 8:30 AM POWER CHISEL OPERATOR Hospital Encounter [facility] [address] [place] [phone] Forest Catherine MD [address] [address] 09/07/2024 8:30 AM POWER CHISEL OPERATOR - 09/07/2024 9:00 AM POWER CHISEL OPERATOR Surgery [facility] [address] [place] [phone] Forest Catherine MD [address] [address] EGD w/Endo Flip & YI placement Scheduled Procedures Name Priority Associated Diagnoses Date/Ti me ESOPHAGOGASTRODUODENOSCOPY Hiatal hernia Gastroesophageal reflux disease, unspecified whether esophagitis present 09/07/2024 8:30 AM POWER CHISEL OPERATOR documented as of this encounter Results * Celiac reflex panel (01/17/2022 2:53 PM [...] suspected, consider HLA-DQ typing. Test Performed by: [facility] [address] [place] [address] Steam Box Tender: Cheo Yuen M.D. Ph.D.; IA# [id number] Blood 01/17/2022 2:53 PM CDT 01/17/2022 5:37 PM CDT Richard Bowman CLINCHING MACHINE OPERATOR LAB BLOOD ORDERABLE S Final Result [facility] ([facility]) [address] [facility] Department [place] [address] documented in this encounter Visit Diagnoses Diagnosis Irritable bowel syndrome with both constipation and diarrhea- Primary Periumbilical abdominal pain Abdominal pain, periumbilic Chronic nausea Nausea alone History of repair [...] may reflect changes made after this encounter. venlafaxine XR (EFFEXOR-XR) 37.5 mg 24 hr capsule Take 37.5 mg by mouth daily 12/12/2021 09/02/2022 added in this encounter Care Teams Lace Stripper Relationship Specialty Start Date End Date Parmjit Dai MD PCP - General 12/31/20 Mere Landa NP Nurse Practitioner 02/07/20 Tico Burton MD Surgeon General Surgery 08/09/21 documented as of this encounter
--- OUTSIDE RECORDS SUMMARY | 2024-08-16 04:35 | XMS_ITS | Encounter Summary ---
Author Organization [facility] Address [address] [place] [address] Care Team Providers Care Filter Tank Tender Helper Head Name Role Phone Mere Landa NP Unavailable [phone] Parmjit Dai MD Primary Care Provider [phone] Tico Burton MD Unavailable [phone] Reason for Visit * Reason Comments Tingling Encounter Details Date Type Department Care Team (Latest Contact Info) Description 08/11/2021 10:00 AM IDENTIFICATION TECHNICIAN - 08/13/2021 4:00 PM IDENTIFICATION TECHNICIAN Hospital Encounter [facility] IMU [address] [place] [address] Juice Pineda MD [address] [place] [address] Antoinette Pickett MD [address] [place] [address] [place] [address] Amelia Riley MD [address] [place] [address] Naz Enriquez MD [address] [place] [address] [place] [address] Cerebrovascular accident (CVA) due to embolism of precerebral artery (CMS/HCC) (HCC) (Primary Dx) Discharge Disposition: Discharge to home [...] on file Legal Sex Female 10:06 AM IDENTIFICATION TECHNICIAN Gender Identity Female 06/17/2024 7:02 AM CDT Sexual Orientation Not on file documented as of this encounter Last Filed Vital Signs Vital Sign Reading Time Taken Comments Blood Pressure 121/71 08/13/2021 11:20 AM IDENTIFICATION TECHNICIAN Pulse 65 08/13/2021 11:20 AM IDENTIFICATION TECHNICIAN Temperature 36.8 ??C (98.3 ??F) 08/13/2021 11:[address] Respiratory Rate 16 08/13/2021 11:20 AM IDENTIFICATION TECHNICIAN Oxygen Saturation 100% 08/13/2021 11:20 AM IDENTIFICATION TECHNICIAN Inhaled Oxygen Concentration - - Weight 75.8 kg (167 lb) 08/11/2021 1:13 PM IDENTIFICATION TECHNICIAN Height 162.6 cm (5' 4 ) 08/11/2021 1:13 PM IDENTIFICATION TECHNICIAN Body Mass Index 28.67 08/11/2021 1:13 PM IDENTIFICATION TECHNICIAN documented in this encounter Discharge Diagnoses Diagnosis Transient cerebral ischemic attack, unspecified - TRANSIENT CEREBRAL ISCHEMIC ATTACK, UNSPECIFIED Hypokalemia - HYPOKALEMIA Hypopotassemia Nicotine dependence, other tobacco product, uncomplicated - NICOTINE DEPENDENCE, OTHER TOBACCO PRODUCT, UNCOMPLICATED Bipolar disorder, unspecified (HCC) - BIPOLAR DISORDER, UNSPECIFIED Bipolar disorder, unspecified Essential tremor - ESSENTIAL TREMOR Essential (primary) hypertension - ESSENTIAL (PRIMARY) HYPERTENSION Unspecified essential hypertension Paroxysmal atrial fibrillation (CMS/HCC) (HCC) - PAROXYSMAL ATRIAL FIBRILLATION Atrial fibrillation Other specified peripheral vascular diseases (HCC) - OTHER SPECIFIED PERIPHERAL VASCULAR DISEASES Irritable bowel syndrome with diarrhea - IRRITABLE BOWEL SYNDROME WITH DIARRHEA Irritable bowel syndrome Nihss score 2 - NIHSS SCORE 2 Facial weakness - FACIAL WEAKNESS senior care (current) use of anticoagulants - SURVEYOR OIL WELL DIRECTIONAL (CURRENT) USE OF ANTICOAGULANTS Long-term (current) use of anticoagulants Family history of ischemic heart disease and other diseases of the circulatory system - FAMILY HISTORY OF ISCHEMIC HEART DISEASE AND OTHER DISEASES OF THE CIRCULATORY SYSTEM Family history of stroke - FAMILY HISTORY OF STROKE Family history of stroke (cerebrovascular) Anxiety disorder, unspecified - ANXIETY DISORDER, UNSPECIFIED Other [facility] (current) drug therapy - OTHER [facility] (CURRENT) DRUG THERAPY documented in this encounter Discharge Summaries * Letha Rose MD - 08/13/2021 3:09 PM CST Inpatient Discharge Summary BRIEF OVERVIEW Admitting Provider: Antoinette Pickett MD Discharge Provider: Naz Enriquez MD Primary Care Physician at Discharge: Parmjit Dai MD [phone] Admission Date: 08/11/2021 Discharge Date: 08/13/2021 Date of Service: 08/13/2021 Primary Discharge Diagnosis: TIA (transient ischemic attack) Secondary Discharge Diagnosis: Principal Problem: TIA (transient ischemic attack) Active Problems: Hypertension Atrial fibrillation (CMS/HCC) (HCC) Dysuria Irritable bowel syndrome with diarrhea Essential tremor Bipolar affect, depressed (CMS/HCC) (HCC) Abdominal pain, generalized DETAILS OF HOSPITAL STAY Presenting Problem/History of Present Illness: TIA (transient ischemic attack) Sarahy Mays is a 51 y.o. female former smoker with a h/o A-fib on Eliquis, cyclic vomiting, small bowel intussusception, IBS, anxiety, and bipolar disorder, s/p cholecystectomy and hernia repair, who presents to the ED on 08/11 with left-sided facial droop. At 7pm on 08/10 is when pt developed the symptoms. Associated symptoms include speech difficulty and generalized tremors. She states that these symptoms have improved since last night, but are still present. Additionally, she reports decreased appetite, nausea, and mild, intermittent abdominal cramping, which have been improving since she was recently admitted to this facility for small bowel intussusception. She reports taking Eliquis as prescribed. She denies vomiting, chest pain, and SOB. No other complaints at this time. Hospital Course: Workup in the ED noted stable vital signs,Blood work was unremarkable.CT head without contrast negative for any acute intracranial findings.NIH score 2. Tele stroke team consulted. Recommended against tPA. Patient was admitted for stroke workup. Eliquis was put on hold. PT was started on aspirin and Lipitor. Further lab work for hemoglobin A1c and lipid panel. PT OT speech was on consult. Patientwas put on fall precautions. Metoprolol was on hold since patient was on permissive hypertension for the next 24-48 hours. Further testing with MRI ultrasound of care did arteries and echo cardiogramwas done on 08/12. Workup for CVA overall negative, MRI without evidence of acute infarct. Patient likely developed a TIA. Reglan was discontinued due to its likely contribution to neuro symptoms. Patient was back to baseline. Patient developed dysuria on 08/13. Urinalysis significant for 4+ leukocyte esterase and >50 wbc. Patient started antibiotics Bactrim. Patient also developed hypokalemiawhich was replenished. Active Issues Requiring Follow-up: TIA (transient ischemic attack) Hypertension Atrial fibrillation Irritable bowel syndrome with diarrhea Essential tremor Bipolar affect, depressed Test Results Pending at Discharge: Pending Labs Order Current Status Urine culture Urine In process Operative Procedures Performed: none Pertinent Test Results: ECG 12 lead Result Date: 08/12/2021 Narrative: Vent Rate: 69 bpm RR Interval: 864 msec OR Interval: 141 msec QRS Duration: 70 msec QT Interval: 392 msec QTC Interval: 411 msec P-R-T [place]: 41 - 41 - 18 degrees SINUS RHYTHM WITH OCCASIONAL SUPRAVENTRICULAR PREMATURE COMPLEXES NONSPECIFIC T-WAVE ABNORMALITY BORDERLINE ECG No change fromprior EKG Electronically Signed By: Arnaldo Yan MD ECG 12 lead Result Date: 08/09/2021 Narrative: Vent Rate: 65 bpm RR Interval: 916 msec OR Interval: 133 msec QRS Duration: 81 msec QT Interval: 425 msec QTC Interval: 437 msec P-R-T [place]: 142 - 173 - 165 degrees SINUS [...] 5:39 AM - Electronically signed by Boone Hrenandez M.D. AR: GRAEME Report ID: [id number] Reading Location: [place] [address] CT Abdomen Pelvis W Contrast Result Date: [...] La Vega M.D. RT: RT Report ID: [id number] Reading Location: [id number] MRI Brain WO Contrast Result Date: 08/12/2021 Narrative: EXAM DESCRIPTION: MRI BRAIN WO CONTRAST REASON FOR STUDY: Neuro deficit, acute, stroke suspected left-sided facial droop since Thursday at 7 PM. Associated symptoms include speech difficulty and generalized tremors. She states that these symptoms have improved since last night, but are still present. Additionally, she reports decreased appetite, nausea, and mild, intermittent abdominalcramping, which have been improving since she was recently admitted to this facility for small bowel intussusception TECHNIQUE: Multiplanar imaging includes non-contrasted T1, T2, FLAIR, and diffusion with ADC map sequences. Additional sequence(s) sensitive to blood products. Images stored on PACS.COMPARISON: Head CT 08/11/2021. FINDINGS: CEREBRUM: There is no mass, mass effect or midline shift.No intracranial hemorrhage or blood degradation products. WHITE MATTER: Few small T2/FLAIR hyperintensities affecting the supratentorial white matter are nonspecific and may not be clinically signific ant. Most likely this is on the basis of very mild chronic ischemic microangiopathy. POSTERIOR FOSSA: Unremarkable. There is no cerebellar tonsillar ectopia. DIFFUSION IMAGING: No cytotoxic edema is identified. EXTRAAXIAL SPACES: No mass or fluid collection. BRAIN VOLUME: Age appropriate. No evidence of hydrocephalus. PITUITARY: Unremarkable. VASCULATURE: Flow voids at the skull base are present.ORBITS: Unremarkable. PARANASAL SINUSES AND MASTOIDS: Sinuses and mastoids are clear. OTHER: No other significant finding. IMPRESSION: Mild chronic ischemic microangiopathy. No acute intracranial abnormality or recent infarction. THIS IS AN ELECTRONICALLY VERIFIED FINAL REPORT 08/12/2021 8:53 AM - Electronically signed by Rodri Hayes D.O. : Report ID: [id number] Reading Location: [place] [id number] US Carotids Duplex Bilateral Result Date: 08/12/2021 Narrative: EXAM DESCRIPTION: US CAROTIDS DUPLEX BILATERAL REASON FOR STUDY: Other Cerebral Infarction (Stroke) Stroke, left-sided facial tingling and left extremity weakness since last night. TECHNIQUE: Aj scale, color Doppler and spectral Doppler imaging were performed. Velocity criteria are extrapolated from diameter as defined by the Society of Radiologists in Ultrasound Consensus Conference. All velocity measurements are in cm/sec. COMPARISON: None FINDINGS: Right: Mild intimal thickening. Distal CCA Peak Systolic Velocity: 95.9 Peak ICA Systolic Velocity: 122.8 Peak ICA/CCA Systolic Ratio: 1.3 Vertebral Artery: Antegrade flow. Left: Mild intimal thickening. Distal CCA Peak Systolic Ve locity: 94.2 Peak ICA Systolic Velocity: 106.9 Peak ICA/CCA Systolic Ratio: 1.1 Vertebral Artery: Antegrade flow. IMPRESSION: 1. Velocities correspond to a less than 50% diameter stenosis of the right internal carotid artery. 2. Velocities correspond to a less than 50% diameter stenosis of the leftinternal carotid artery. 3. Antegrade direction of flow of the bilateral vertebral arteries. REFERENCE: Consensus Panel Aj-Scale and Doppler US Criteria for Diagnosis of ICA Stenosis. No stenosis: ICA PSV <125*, 0% plaque, ICA/CCA PSV Ratio <2.0, ICA EDV <40*. <50% stenosis: ICA PSV <125*, <50% plaque, ICA/CCA PSV Ratio <2.0, ICA EDV <40*. 50-69% stenosis: ICA PSV 125-230*, >=50% plaque, ICA/CCA PSV Ratio 2.0-4.0, ICA EDV 40-100*. >=70% but less than near occlusion >230, >=50% plaque, ICA/CAA PSV Ratio >4.0, ICA EDV >100*. *cm/sec Plaque estimate (diameter reduction) with ja-scale and color Doppler US. RSNA 2002 THIS IS AN ELECTRONICALLY VERIFIED FINAL REPORT 08/12/2021 9:24 AM - Electronically signed by Sukhjinder Pastrana M.D. JR: Report ID: [id number] Reading Location: [place] [address] CT Stroke Head WO Contrast Result Date: 08/11/2021 Narrative: EXAM DESCRIPTION: CT STROKE HEAD WO CONTRAST REASON FOR STUDY: Neuro deficit, acute, stroke suspected, Stroke Left sided facial tingling and left extremity weakness started around 7 pm last night. TECHNIQUE: Axial images acquired through the brain without intravenous contrast. Images stored on PACS. Automated exposure control was used as a dose optimization technique for this examination. COMPARISON: No prior. FINDINGS: BRAIN: There are no extra-axial fluid collections. No evidence of hemorrhage. Aj-white matter differentiation is normal. Ventricles and sulci are consistent with age. No shift of midline structures or of mass effect. EXTRA-AXIAL SPACES: No fluid collections. No m asses. CALVARIUM: No fracture. SINUSES/MASTOIDS: No fluid or mucosal thickening. ORBITS: No significant abnormality. OTHER: No other significant abnormality. IMPRESSION: 1. No acute intracranial findings. 2. Findings called by the operation support center at 10:15 a.m. 08/11/2021. THIS IS AN ELECTRONICALLY VERIFIED FINAL REPORT 08/11/2021 10:15 AM - Electronically signed by Say Ford M.D. MJ: KIA Report ID: [id number] Reading Location: [id number] TRANSTHORACIC ECHO (TTE) W BUBBLE STUDY Result Date: 08/12/2021 Narrative: [address] [place] [address] Echocardiogram Report Patient Name: SARAHY MAYS : 1970 Study Date: 2021-08-12 3:14:03 PM Gender: F Tech: DEHORNER Location: [id number] Ref.Provider: NORTH HUERTAS Height(Cm): 164 BSA: 1.76 Weight(Kg): 68 Quality: Adequate Order Provider: NORTH HUERTAS Procedures: Echocardiographic Report: Transthoracic echocardiogram with 2D, M-Mode, and color Doppler examination with saline contrast study. Indications: Transient Ischemic Attack. Measurements: 2D/M Mode Doppler Measurement Value Normal Range Measurement Value Normal Range EF Teich MM 51.3 [ 55.0 - 70.0 ] percent ELAINA Vmax 3.36 [ 2.00 - 4.00 ] cm2 LVIDd MM 4.89 [ 3.90 - 5.30 ] cm AV Mean PG 4 [ 2- 4 ] mmHg LVIDs MM 3.61 [ 2.30 - 3.90 ] cm AV Peak Nahid 1.49 [ 1.00 - 1.70 ] m/s LVPWd MM 1.15 [ 0.60 - 1.00 ] cm AV VTI 35.55 cm IVSd MM 0.90 [ 0.60 - 0.90 ] cm LVOT Diam 2.34 [ 1.70 - 2.10 ] cm LA Dimension MM 3.82 [ 2.70 - 3.80 ] cm LVOT Peak Nahid 1.17 [ 0.70 - 1.10 ] m/s AoR Diam MM 2.92 [ 2.60- 3.70 ] cm LVOT VTI 22.72 [ 20.00 - 30.00 ] cm ACS MM 2.01 cm MV E Peak Nahid 0.95 [ 0.60 - 1.30 ] m/s MV A Peak Nahid 0.42 [ 1.00 - 1.20 ] m/s MV Mean PG 2 [ <= 5 ] mmHg MV PHT 56 [ 20 - 100 ] msec MVA 3.90 MV Decel Time 194 [ 104 - 258 ] msec PV Peak Nahid 1.17 [ 0.40 - 0.80 ] m/s TR Peak Nahid 3.00 [ 1.00 - 2.80 ] m/s TR Peak PG 36 mmHg RVSP 46.00 [ 10.00 - 36.00 ] mmHg E' 0.11 E/E' 8.65 PA Pressure 10.00 [ 10.00 - 36.00 ] mmHg Findings: Atrial Septum: The atrial septum is not well visualized. Saline contrast study performed without evidence of right to left shunt. Left Ventricle: Normal left ventricular systolic function with no focal wall motion abnormalities. Normal left ventricular size. Left ventricular wall thickness upper limits of normal. Normal left ventricular diastolic function. Ejection fraction is visually estimated at 60-70 %. Left Atrium: The left atrium is normal in size. Right Ventricle: Normal right ventricular size. Normal right ventricular systolic function. Right Atrium: The right atrium is normal in size. Aortic Valve: Normal structure of the aortic valve. Mitral Valve: Normal structure of the mitral valve. Pulmonic Valve: Normal structure of the pulmonicvalve. Tricuspid Valve: Normal structure of the tricuspid valve. Normal right ventricular systolic pressure. Pericardium: Normal pericardium with no significant pericardial effusion. Aorta: Normal aor tic root. Sinus of Valsalva is normal. Aortic arch is normal. Descending aorta is normal. IVC: Normal size and normal respiratory collapse consistent with normal right atrial pressure (<5 mmHg). Pulmonary Artery: Normal pulmonary artery size. Conclusions: Normal left ventricular systolic function with no focal wall motion abnormalities. Normal left ventricular size. Left ventricular wall thickness upper limits of normal. Normal left ventricular diastolic function. Ejection fraction is visually estimated at 60-70 %. The atrial septum is not well visualized. Saline contrast study performed without evidence of right to left shunt within limitations of poor image quality. Electronically Signed By: Kofi Sheffield MD, [facility] 2021-08-12 18:32:12 IDENTIFICATION TECHNICIAN Discharge Details Physical Exam at Discharge: Discharge Condition: improved and stable. Pulse: 65 Resp: 16 BP: 121/71 Temp: 36.8 ??C (98.3 ??F) Pertinent Exam Findings at Discharge: Patient sitting in bed comfortably in no acute distress. Lungs clear to auscultation with good air movement. Abdomen soft positive bowel sounds,suprapubic tenderness, negative CVA, heart regular rate and rhythm. Lower extremities no edema. Speaking in full sentences without any difficulty. No facial droop visualized. Lower extremity strength 5/5, upper extremity strength 5/5. Discharge Disposition: Discharge to home or self care Code Status at Discharge: Full Code Discharge Instructions: Activity Instructions Discharge activity: Resume normal activity Diet Instructions Adult Discharge Diet Diet Type: Return to previous diet Other Instructions Call provider for: difficulty breathing or chest pain Call provider for: headache, visual disturbances, weakness and speech changes THANK YOU for choosing our team to provide your health care. Your HEALTH AND SAFETY are important to us. We hope you feel your care on IMU was ALWAYS EXCELLENT! Please call IMU at [phone] if you have any questions regarding your care. Wishing you continued improvement during your recovery. Your Intermediate Care Unit Team Discharge Medications: Your medication list START taking these medications aspirin 325 mg tablet Take 1 tablet (325 mg total) by mouth daily for 1 dose Take until Aug 15- when you restart eliquis Start taking on: August 14, 2021 atorvastatin 40 mg tablet Take 1 tablet (40 mg total) by mouth daily Commonly known as: LIPITOR sulfamethoxazole-trimethoprim 800-160 mg per tablet Take 1 tablet (160 mg of trimethoprim total) by mouth 2 (two) times a day for 9 doses Commonly known as: BACTRIM DS CHANGE how you take these medications ondansetron 4 mg tablet Take 1 tablet (4 mg total) by mouth every 8 (eight) hours as needed for nausea or vomiting Commonly known as: ZOFRAN What changed: Another medication with the same name was removed. Continue taking this medication, and follow the directions you see here. CONTINUE taking these medications apixaban 5 mg tablet Commonly known as: ELIQUIS dicyclomine 10 mg capsule Commonly known as: BENTYL escitalopram 10 mg tablet Commonly known as: LEXAPRO flecainide 50 mg tablet Commonly known as: TAMBOCOR metoprolol XL 25 mg extended release tablet Commonly known as: TOPROL-XL pantoprazole DR 40 mg EC tablet Commonly known as: PROTONIX SUMAtriptan 50 mg tablet Commonly known as: IMITREX STOP taking these medications metoclopramide 10 mg tablet Commonly known as: REGLAN Outpatient Follow-Up: No future appointments. TOTAL TIME SPENT ON DAY OF DISCHARGE 30 MINUTES Letha Rose MD Family Medicine PGY-1 [facility] 08/13/2021 3:09 PM Cosigned by Naz Enriquez MD at 08/13/2021 6:19 PM IDENTIFICATION TECHNICIAN TIFICATION TECHNICIAN TIFICATION TECHNICIAN Associated attestation - Naz Enriquez MD - 08/13/2021 6:19 PM IDENTIFICATION TECHNICIAN I personally saw and examined the patient on 08/13/2021 and discussed the case with the resident. Kevin reviewed the resident's note and agree with the content and plan as written. Additional information as noted below. Patient admitted with left facial droop and generalized tremors. Patient had resolution of symptoms. Known atrial fibrillation on [facility]. By the time of discharge, patient with no speech difficulty or facial droop but still having some tremors. Patient also with some other paresthesias. No chest pain or chest pressure by discharge. On final physical exam, patient awake and alert in no acute distress. Strength equal bilaterally. Speech clear. Heart irregularly irregular. Lungs clear to auscultation bilaterally. Abdomen soft and nontender. Patient felt to have TIA. While in hospital, patient given aspirin but will returned to [facility] on 08/15/2021. Additionally, patient with dysuria at discharge with UA suspicious for UTI for which shewill complete a course of Bactrim. Continue to monitor blood pressure with metoprolol restarted. Patient will follow-up with primary physician as well as Cardiology. Patient did require correction of hypokalemia while in hospital. Additional information as per resident physician discharge summary. Additional discharge diagnosis: Hypokalemia Total time spent in discharge: 35 minutes Naz Enriquez MD Director of Family Medicine Inpatient Services Record Pressman, JADYN [facility] documented in this encounter Discharge Instructions * Discharge Instructions* Denise Barth, RN - 08/13/2021 3:03 PM IDENTIFICATION TECHNICIAN Images from the original note were not included. Effects of a Stroke WHAT YOU NEED TO KNOW: The effects of a stroke may be different for everyone. They may depend on where the stroke happenedin your brain and how much damage occurred there. Some people may make a full recovery. Other people may have long-term effects. It is important to talk to your healthcare provider about any symptomsyou have after a stroke. There are medicines and therapies to help manage the effects of a stroke. DISCHARGE INSTRUCTIONS: Call 911 or have someone else call 911 for any of the following: ?? You have any of the following signs of a stroke: ?? Numbness or drooping on one side of your face ?? Weakness in an arm or leg ?? Confusion or difficulty speaking ?? Dizziness, a severe headache, or vision loss ? You cannot be woken up. ?? You fall and hit your head. ?? You have a seizure. ?? You feel lightheaded, short of breath, and have chest pain. ?? You cough up blood. Seek care immediately if: ?? Your arm or leg is painful, red, or larger than normal. ?? You feel weak, dizzy, or faint. ?? You have a fall without hitting your head. ?? Your blood sugar level or blood pressure is higher or lower than your healthcare provider said it should be. ?? You bleed heavily or cannot stop bleeding from a cut or injury. ?? You have a new, severe headache. Contact your healthcare provider if: ?? You have a fever. ?? You have a rash. ?? You have new or worsening symptoms. ?? You feel extremely sad or anxious. ?? You feel you are unable to cope with your condition. ?? You have trouble sleeping. ?? You have open sores. ?? You choke or cough when eating or drinking. ?? You have questions or concerns about your condition or care. Problems with language, speech, and memory: ?? Difficulty finding the right words or putting complete sentences together ?? Difficulty putting words together that make sense ?? Difficulty paying attention or a short attention span ?? Difficulty writing or reading ?? Problems with memory or being disoriented to time, place, or situation ?? Problems thinking clearly or feeling confused ?? Difficulty understanding written or spoken language or learning something new Muscle and nerve problems: A stroke may affect one side of your body or part of one side. You may be at an increased risk for falling if you have difficulty moving your leg muscles. You may have any of the following: ?? Inability to move your arm, leg, or one side of your face (paralysis) ?? Muscle weakness, spasms, or muscles that stay in one position (contracted) ?? Poor balance, difficulty walking, or difficulty grasping objects ?? Changes in your vision or poor vision ?? Ignoring, or being unaware of one side of your body ?? Numbness of your arm, hand, fingers, leg, foot, or toes ?? Pain, tickling, or prickling in weak or paralyzed parts of your body Bowel and bladder problems: ?? Loss of control of your urine or bowel movements ?? Feeling like you have to urinate frequently, even when your bladder is not full ?? Difficulty emptying your bladder or constipation Swallowing and eating problems: ?? Difficulty swallowing food ?? Difficulty feeding yourself ?? A lack of taste or a change in the way you taste things ?? An increased risk for aspiration (food moves into the lungs) and pneumonia due to swallowing problems Changes in personality or mood: ?? Depression, sadness, irritability, or hopelessness ?? Anger, frustration, or anxiety ?? Difficulty controlling emotions or expressing inappropriate emotions ?? Quick mood changes Fatigue: ?? Low energy levels ?? Tiring easily ?? A lack of motivation Problems sleeping: ?? Development of sleep apnea ?? Changes in sleep such as sleeping too much or not enough Problems with sexual function: ?? Difficulty having or keeping an erection ?? Vaginal dryness ?? A decreased interest in sex Self care after a stroke: ?? Go to rehabilitation (rehab) as directed. Rehab is an important part of treatment. A speech therapist helps you relearn or improve your ability to talk and swallow. You may start slowly and start doing more difficult tasks over time. Physical therapists can help you gain strength and build endurance. Occupational therapists teach you new ways to do daily activities, such as getting dressed. Therapy can help you improve your ability to walk or keep your balance. Your therapy may include tasksor movements you will need to do for everyday activities. An example is being able to raise or lower yourself from a chair. ?? Prevent falls in your home. Remove anything you might trip over. Tape electrical cords down. Keep paths clear throughout your home. Make sure your home is well lighted. Put nonslip materials on surfaces that might be slippery. An example is your bathtub or shower floor. ?? Use assistive devices. A cane or walker may help you keep your balance as you walk. ?? Manage other medical conditions. Manage your heart conditions, blood pressure, and diabetes. Management of these conditions can reduce your risk for another stroke. Take your medicines as directed. Follow your healthcare provider's instructions for diet. ?? Join a support group. Life after a stroke can be difficult. It may be helpful to talk to others who have had a stroke. There are also support groups for family members or support persons of those whom have had a stroke. Ask your healthcare provider for more information about support groups. Know the signs of depression: Depression may happen after you have a stroke. Depression can lower your quality of life and cause you to stop doing things to help you be stronger. Depression can causeyou to become less independent. Know the signs of depression so that you can receive help. Tell your family and friends that if they see these signs, to let your healthcare provider know. You may show any of the following signs of depression: ?? Extreme sadness ?? Avoiding social interaction with family or friends ?? A lack of interest in things you once enjoyed ?? Irritability ?? Trouble sleeping ?? Low energy levels ?? A change in eating habits or sudden weight gain or loss Driving after a stroke: Do not drive a car without talking to your healthcare provider or occupational therapist. The effects of a stroke may make it difficult or unsafe for you to drive. You may need to have a driver retraining instructor evaluation before you can safely and legally drive a car. You may also need to take a driver retraining instructor training program or get special equipment installed in your car. Ask your healthcare provider for more information about driving after a stroke. For more information and support: ?? National Stroke [employer] [address] [place] [address] Phone: Web Address: http://www.stroke.org Follow up with your healthcare provider as directed: You may need to come in for regular tests of your brain function. If you are taking warfarin, you will need to come in for regular blood tests. Your INR levels will also need to be checked. These tests help make sure you are taking the right amount of warfarin. Write down your questions so you remember to ask them during your visits. ?? 2017 [employer] Information is for End User's use only and may not be sold, redistributed or otherwise used for commercial purposes. All illustrations and images included in CareNotes?? are the copyrighted property of [employer]. or [employer]. The above information is an educational program director only. It is not intended as medical advice for individual conditions or treatments. Talk to your doctor, nurse or pharmacist before following any medical regimen to see if it is safe and effective for you. TIFICATION TECHNICIAN * Discharge Instr - Other Orders* Denise Barth RN - 08/13/2021 3:00 PM IDENTIFICATION TECHNICIAN THANK YOU for choosing our team to provide your health care. Your HEALTH AND SAFETY are important to us. We hope you feel your care on IMU was ALWAYS EXCELLENT! Please call IMU at [phone] if you have any questions regarding your care. Wishing you continued improvement during your recovery. Your Intermediate Care Unit Team TIFICATION TECHNICIAN * Attachments The following attachments cannot be sent through Care Everywhere. * Aspirin (By mouth) (Surinamese) * Atorvastatin (By mouth) (Surinamese) * Sulfamethoxazole/Trimethoprim (By mouth) (Surinamese) documented in this encounter [...] mouth 2 (two) times a day [address] (PROTONIX) 40 mg EC [...] Refills Last Filled Start Date End Date atorvastatin (LIPITOR) 40 mg tabletIndications :hyperlipidemia Take 1 tablet (40 mg total) by mouth daily 30 tablet 1 08/13/2021 sulfamethoxazole- trimethoprim (BACTRIM DS) 800-160 mg per tabletIndications :Urinary Tract/Genitourina ry Infection Take 1 tablet (160 mg of trimethoprim total) by mouth 2 (two) times a day for 9 doses 9 tablet 08/13/2021 1 aspirin 325 mg tabletIndications :cerebral ischemia,Cerebral Ischemia Take 1 tablet (325 mg total) by mouth daily for 1 dose Take until Aug 15- when you restart eliquis 1 tablet 08/14/2021 2 documented in this encounter Discharge Disposition Disposition Code Departure Means Destination Discharge to home or self care documented in this encounter Progress Notes * Teresa Zepeda COTA - 08/13/2021 3:00 PM CST Occupational Therapy 08/13/21 1413 General Session Type Treatment OT Received On 08/13/21 Safe Environment Arm Band Checked;Call Light within Reach Pain Assessment Pain Assessment No/denies pain All Joints - ROM/Strength - Right R Motion All Joints AROM R Position All Joints Seated Equipment Theraband (Red) Muscle Tone-All Joints-Right WNL R Weight/Reps/Sets All Joints 10 reps using Red Theraband with handout All Joints - ROM/STRENGTH - Left L Motion All Joints AROM L Position All Joints Seated Equipment Theraband (Red) Muscle Tone-All Joints-Left WNL L Weight/Reps/Sets All Joints 10 reps using Red Theraband with Handout Cognition Orientation Oriented X4 (person, place, time, situation) Plan Plan Discharge Recommendation/Plan OT Recommendation Home with family Treatment/Interventions Therapeutic exercise;Strengthening OT - OK to Discharge Yes TIFICATION TECHNICIAN * Letha Rose MD - 08/13/2021 9:38 AM CST General Medicine Daily Progress SUBJECTIVE Sarahy A Wonglarosa??is a 51 y.o.??female??former smoker??with a h/o A- fib on Eliquis, cyclic vomiting, small bowel??intussusception, IBS, anxiety, and bipolar disorder, s/p cholecystectomy and hernia repair,??who presents to the ED with left-sided facial droop?? Chief complaint of left-sided facial droop, left face tingling, speech difficulty Interval History: Patient states that her appetite is not good. She states that she had only few bites for dinner. She also complains of pain with urination, and abdominal pain. She denies any blood in urine. No catheter placed in recent hospital admission. She also states that she has the tremor in b/l hands and feet. Numbness and tingling in the S 1 dermatone region in b/l feet. Denies any changes in strength. Speech is clear. She is basically back to her baseline. Pt K level was low 2.9 and it was replenished. Patient had her MRI and ultrasound of carotid arteries, echo with out any significant finding. Patient to resume Eliquis on August 15. Will continue with aspirin 325. Denies any SOB, headache, vision changes, chest pain OBJECTIVE Vitals: 24hr Min/Max: Temp Min: 36.3 ??C (97.4 ??F) Max: 37.1 ??C (98.7 ??F) Pulse Min: 52 Max: 80 BP Min: 123/72 Max: 136/77 Resp Min: 16 Max: 20 SpO2 Min: 97 % Max: 99 % Most Recent : Vitals: 08/13/21 0732 BP: 136/77 Pulse: 69 Resp: 16 Temp: 36.5 ??C (97.7 ??F) SpO2: 99% I/O last 2 completed shifts: In: 600 [P.O.:600] Out: 750 [Urine:750] I/O this shift: In: 500 [IV Piggyback:500] Out: - Physical Exam: Eyes: EOMI, CANDIDA, sclare non icteric Neck: supple, no nuchal ridigity, no gross carotid bruits appreciated Pharynx: No gross oral lesion, tongue midline, mucosa moist Lungs: good air movement, clear to auscultation Heart: [id number], no significant murmur or gallop Abd: +BS, Tender, Non distended, suprapubic tenderness, negative CVA b/l Lower Ext: No gross edema, pedal artery pulses are palpable bilaterally Neuro: No new deficits appreciated Musculoskeletal: no gross joint erythema, edema, tenderness Skin: No new change Lab/Current Medication Review: Recent Results (from the past 24 hour(s)) Basic metabolic panel Collection Time: 08/13/21 4:50 AM Result Value Ref Range Sodium 141 135 - 145 mmol/L Potassium, pl 2.9 (Critical) 3.3 - 4.9 mmol/L Chloride 105 97 - 110 mmol/L CO2 26 22 - 32 mmol/L Anion gap 10 2 - 15 mmol/L BUN 10 8 - 25 mg/dL Creatinine 0.53 (L) 0.60 - 1.10 mg/dL Glucose 102 70 - 199 mg/dL Calcium 8.9 8.5 - 10.3 mg/dL Magnesium Collection Time: 08/13/21 4:50 AM Result Value Ref Range Magnesium 1.7 1.4 - 2.5 mg/dL Phosphorus Collection Time: 08/13/21 4:50 AM Result Value Ref Range Phosphorus, pl 3.5 2.3 - 4.5 mg/dL CBC with auto differential Collection Time: 08/13/21 4:50 AM Result Value Ref Range WBC 7.0 3.8 - 9.9 K/cumm Hgb 10.1 (L) 11.9 - 15.5 g/dL Hct 31.4 (L) 35.6 - 45.5 % Plt 281 150 - 400 K/cumm MPV 10.8 9.1 - 12.3 fL RBC 3.55 (L) 3.90 - 5.20 M/cumm MCV 88.5 81.3 - 96.4 fL MCH 28.5 27.1 - 33.3 pg MCHC 32.2 (L) 32.3 - 35.7 g/dL RDW CV 15.1 (H) 11.1 - 14.9 % RDW SD 48.9 (H) 35.7 - 48.1 fL NRBC abs 0.00 0.00 - 0.01 K/cumm Differential, auto Collection Time: 08/13/21 4:50 AM Result Value Ref Range Neutrophil abs 4.0 1.7 - 6.5 K/cumm Imm gran abs 0.0 0.0 - 0.1 K/cumm Lymphocyte abs 1.8 0.8 - 3.3 K/cumm Monocyte abs 1.0 (H) 0.2 - 0.8 K/cumm Eosinophil abs 0.1 0.0 - 0.5 K/cumm Basophil abs 0.0 0.0 - 0.1 K/cumm Neutrophil pct 56.8 % Imm gran pct 0.1 % Lymphocyte pct 26.3 % Monocyte pct 14.3 % Eosinophil pct 1.9 % Basophil pct 0.6 % eGFR Collection Time: 08/13/21 4:50 AM Result Value Ref Range eGFR 111 mL/min/1.73 m2 ECG 12 lead Result Date: 08/12/2021 Narrative: Vent Rate: 69 bpm RR Interval: 864 msec OR Interval: 141 msec QRS Duration: 70 msec QT Interval: 392 msec QTC Interval: 411 msec P-R-T [place]: 41 - 41 - 18 degrees SINUS RHYTHM WITH OCCASIONAL SUPRAVENTRICULAR PREMATURE COMPLEXES NONSPECIFIC T-WAVE ABNORMALITY BORDERLINE ECG No change fromprior EKG Electronically Signed By: Arnaldo Yan MD ECG 12 lead Result Date: 08/09/2021 Narrative: Vent Rate: 65 bpm RR Interval: 916 msec OR Interval: 133 msec QRS Duration: 81 msec QT Interval: 425 msec QTC Interval: 437 msec P-R-T [place]: 142 - 173 - 165 degrees SINUS [...] Boone Hernandez M.D. AR: GRAEME Report ID: [id number] Reading Location: [place] [address] CT Abdomen Pelvis W Contrast Result Date: [...] La Vega M.D. RT: RT Report ID: [id number] Reading Location: [place] [address] MRI Brain WO Contrast Result Date: 08/12/2021 Narrative: EXAM DESCRIPTION: MRI BRAIN WO CONTRAST REASON FOR STUDY: Neuro deficit, acute, stroke suspected left-sided facial droop since Thursday at 7 PM. Associated symptoms include speech difficulty and generalized tremors. She states that these symptoms have improved since last night, but are still present. Additionally, she reports decreased appetite, nausea, and mild, intermittent abdominalcramping, which have been improving since she was recently admitted to this facility for small bowel intussusception TECHNIQUE: Multiplanar imaging includes non-contrasted T1, T2, FLAIR, and diffusion with ADC map sequences. Additional sequence(s) sensitive to blood products. Images stored on PACS.COMPARISON: Head CT 08/11/2021. FINDINGS: CEREBRUM: There is no mass, mass effect or midline shift. No intracranial hemorrhage or blood degradation products. WHITE MATTER: Few small T2/FLAIR hyperintensities affecting the supratentorial white matter are nonspecific and may not be clinically signifi cant. Most likely this is on the basis of very mild chronic ischemic microangiopathy. POSTERIOR FOSSA: Unremarkable. There is no cerebellar tonsillar ectopia. DIFFUSION IMAGING: No cytotoxic edema isidentified. EXTRAAXIAL SPACES: No mass or fluid collection. BRAIN VOLUME: Age appropriate. No evidence of hydrocephalus. PITUITARY: Unremarkable. VASCULATURE: Flow voids at the skull base are present. ORBITS: Unremarkable. PARANASAL SINUSES AND MASTOIDS: Sinuses and mastoids are clear. OTHER: No other significant finding. IMPRESSION: Mild chronic ischemic microangiopathy. No acute intracranial abnormality or recent infarction. THIS IS AN ELECTRONICALLY VERIFIED FINAL REPORT 08/12/2021 8:53 AM - Electronically signed by Rodri Hayes D.O. : Report ID: [id number] Reading Location: [id number] US Carotids Duplex Bilateral Result Date: 08/12/2021 Narrative: EXAM DESCRIPTION: US CAROTIDS DUPLEX BILATERAL REASON FOR STUDY: Other Cerebral Infarction (Stroke) Stroke, left-sided facial tingling and left extremity weakness since last night. TECHNIQUE: Aj scale, color Doppler and spectral Doppler imaging were performed. Velocity criteria are extrapolated from diameter as defined by the Society of Radiologists in Ultrasound Consensus Conference. All velocity measurements are in cm/sec. COMPARISON: None FINDINGS: Right: Mild intimal thickening. Distal CCA Peak Systolic Velocity: 95.9 Peak ICA Systolic Velocity: 122.8 Peak ICA/CCA Systolic Ratio: 1.3 Vertebral Artery: Antegrade flow. Left: Mild intimal thickening. Distal CCA Peak Systolic Ve locity: 94.2 Peak ICA Systolic Velocity: 106.9 Peak ICA/CCA Systolic Ratio: 1.1 Vertebral Artery: Antegrade flow. IMPRESSION: 1. Velocities correspond to a less than 50% diameter stenosis of the right internal carotid artery. 2. Velocities correspond to a less than 50% diameter stenosis of the leftinternal carotid artery. 3. Antegrade direction of flow of the bilateral vertebral arteries. REFERENCE: Consensus Panel Aj-Scale and Doppler US Criteria for Diagnosis of ICA Stenosis. No stenosis: ICA PSV <125*, 0% plaque, ICA/CCA PSV Ratio <2.0, ICA EDV <40*. <50% stenosis: ICA PSV <125*, <50% plaque, ICA/CCA PSV Ratio <2.0, ICA EDV <40*. 50-69% stenosis: ICA PSV 125-230*, >=50% plaque, ICA/CCA PSV Ratio 2.0-4.0, ICA EDV 40-100*. >=70% but less than near occlusion >230, >=50% plaque, ICA/CAA PSV Ratio >4.0, ICA EDV >100*. *cm/sec Plaque estimate (diameter reduction) with aj-scale and color Doppler US. RSNA 2002 THIS IS AN ELECTRONICALLY VERIFIED FINAL REPORT 08/12/2021 9:24 AM - Electronically signed by Sukhjinder Pastrana M.D. JR: Report ID: [id number] Reading Location: [id number] CT Stroke Head WO Contrast Result Date: 08/11/2021 Narrative: EXAM DESCRIPTION: CT STROKE HEAD WO CONTRAST REASON FOR STUDY: Neuro deficit, acute, stroke suspected, Stroke Left sided facial tingling and left extremity weakness started around 7 pm last night. TECHNIQUE: Axial images acquired through the brain without intravenous contrast. Images stored on PACS. Automated exposure control was used as a dose optimization technique for this examination. COMPARISON: No prior. FINDINGS: BRAIN: There are no extra-axial fluid collections. No evidence of hemorrhage. Aj-white matter differentiation is normal. Ventricles and sulci are consistent withage. No shift of midline structures or of mass effect. EXTRA-AXIAL SPACES: No fluid collections. No masses. CALVARIUM: No fracture. SINUSES/MASTOIDS: No fluid or mucosal thickening. ORBITS: No significant abnormality. OTHER: No other significant abnormality. IMPRESSION: 1. No acute intracranial findings. 2. Findings called by the operation support center at 10:15 a.m. 08/11/2021. THIS IS AN ELECTR ONICALLY VERIFIED FINAL REPORT 08/11/2021 10:15 AM - Electronically signed by Say ADAM: KIA Report ID: [id number] Reading Location: [id number] TRANSTHORACIC ECHO (TTE) W BUBBLE STUDY Result Date: 08/12/2021 Narrative: [address] [place] [address] Echocardiogram Report Patient Name: SARAHY MAYS : 1970 Study Date: 2021-08-12 3:14:03 PM Gender: F Tech: DEHORNER Location: [id number] Ref.Provider: NORTH HUERTAS Height(Cm): 164 BSA: 1.76 Weight(Kg): 68 Quality: Adequate Order Provider: NORTH HUERTAS Procedures: Echocardiographic Report: Transthoracic echocardiogram with 2D, M-Mode, and color Doppler examination with saline contrast study. Indications: Transient Ischemic Attack. Measurements: 2D/M Mode Doppler Measurement Value Normal Range Measurement Value Normal Range EF Teich MM 51.3 [ 55.0 -70.0 ] percent ELAINA Vmax 3.36 [ 2.00 - 4.00 ] cm2 LVIDd MM 4.89 [ 3.90 - 5.30 ] cm AV Mean PG 4 [ 2 - 4 ] mmHg LVIDs MM 3.61 [ 2.30 - 3.90 ] cm AV Peak Nahid 1.49 [ 1.00 - 1.70 ] m/s LVPWd MM 1.15 [ 0.60 - 1.00 ] cm AV VTI 35.55 cm IVSd MM 0.90 [ 0.60 - 0.90 ] cm LVOT Diam 2.34 [ 1.70 - 2.10 ] cm LA Di mension MM 3.82 [ 2.70 - 3.80 ] cm LVOT Peak Nahid 1.17 [ 0.70 - 1.10 ] m/s AoR Diam MM 2.92 [ 2.60 -3.70 ] cm LVOT VTI 22.72 [ 20.00 - 30.00 ] cm ACS MM 2.01 cm MV E Peak Nahid 0.95 [ 0.60 - 1.30 ] m/sMV A Peak Nahid 0.42 [ 1.00 - 1.20 ] m/s MV Mean PG 2 [ <= 5 ] mmHg MV PHT 56 [ 20 - 100 ] msec MVA 3.90 MV Decel Time 194 [ 104 - 258 ] msec PV Peak Nahid 1.17 [ 0.40 - 0.80 ] m/s TR Peak Nahid 3.00 [ 1.00 - 2.80 ] m/s TR Peak PG 36 mmHg RVSP 46.00 [ 10.00 - 36.00 ] mmHg E' 0.11 E/E' 8.65 PA Pressure 10.00 [ 10.00 - 36.00 ] mmHg Findings: Atrial Septum: The atrial septum is not well visualized.Saline contrast study performed without evidence of right to left shunt. Left Ventricle: Normal left ventricular systolic function with no focal wall motion abnormalities. Normal left ventricular size. Left ventricular wall thickness upper limits of normal. Normal left ventricular diastolic function. Ejection fraction is visually estimated at 60-70 %. Left Atrium: The left atrium is normal in size. Right Ventricle: Normal right ventricular size. Normal right ventricular systolic function. RightAtrium: The right atrium is normal in size. Aortic Valve: Normal structure of the aortic valve. Mitral Valve: Normal structure of the mitral valve. Pulmonic Valve: Normal structure of the pulmonic valve. Tricuspid Valve: Normal structure of the tricuspid valve. Normal right ventricular systolic pressure. Pericardium: Normal pericardium with no significant pericardial effusion. Aorta: Normal aortic root. Sinus of Valsalva is normal. Aortic arch is normal. Descending aorta is normal. IVC: Normal size and normal respiratory collapse consistent with normal right atrial pressure (<5 mmHg). Pulmonary Artery: Normal pulmonary artery size. Conclusions: Normal left ventricular systolic function with no focal wall motion abnormalities. Normal left ventricular size. Left ventricular wall thickness upper limits of normal. Normal left ventricular diastolic function. Ejection fraction is visually estimated at 60-70 %. The atrial septum is not well visualized. Saline contrast study performed without evidence of right to left shunt within limitations of poor image quality. Electronically SignedBy: Kofi Sheffield MD, [facility] 2021-08-12 18:32:12 IDENTIFICATION TECHNICIAN Current Facility-Administered Medications Medication Dose Route Frequency Provider Last Rate Last Admin ??? [Held by Provider] apixaban (ELIQUIS) tablet 5 mg 5 mg oral BID [place] MD ??? aspirin tablet 325 mg 325 mg oral Daily [place] Hu[place] MD 325 mg at 08/13/21 0838 Or ??? aspirin suppository 300 mg 300 mg rectal Daily [place] MD ??? atorvastatin (LIPITOR) tablet 40 mg 40 mg oral Daily [place] MD 40 mg at 08/12/212013 ??? citalopram (CeleXA) tablet 10 mg 10 mg oral Daily [place] MD 10 mg at 08/13/21 0838 ??? dicyclomine (BENTYL) capsule 20 mg 20 mg oral BID [place] MD 20 mg at 08/13/21 0838 ??? flecainide (TAMBOCOR) tablet 50 mg 50 mg oral BID [place] MD 50 mg at 08/13/21 0838 ??? [Held by Provider] metoprolol XL (TOPROL-XL) extended release tablet 25 mg 25 mg oral Daily [place] Hu[place] MD ??? ondansetron (ZOFRAN) injection 4 mg 4 mg intravenous Q6H PRN [place] MD 4 mg at 08/12/212013 ??? pantoprazole DR (PROTONIX) extended release tablet 40 mg 40 mg oral Q12H [place] MD 40 mg at 08/13/21 0838 ??? potassium chloride 40 mEq/520 mL in sodium chloride 0.9% (premix) 40 mEq 40 mEq intravenous [id number] ogrman MD 130 mL/hr at 08/13/21 0838 40 mEq at 08/13/21 0838 ??? ramelteon (ROZEREM) tablet 8 mg 8 mg oral Nightly PRN [place] MD 8 mg at 08/12/212013 A/P: Assessment/Plan * TIA (transient ischemic attack) Assessment & Plan Sarahy Mays 51-year-old female presenting with left facial droop and left face tingling sensation. Not a tPA candidate. NA score of 2. Has had previous similar event. Currently back to baselinewithout any deficits. CT of head showing no intracranial findings, most likely TIA rather than CVA, due to the findings on the CT and MRI. MRI 08/12: Mild chronic ischemic microangiopathy. No acute intracranial abnormality or recent infarction Echo:Normal left ventricular systolic function with no focal wall motion abnormalities. Normal leftventricular size. Left ventricular wall thickness upper limits of normal. Normal left ventricular diastolic function. Ejection fraction is visually estimated at 60-70 % Ultrasound of carotid arteries: Less than 50% of stenosis. Continue aspirin 325 Continue atorvastatin 40 mg Dysuria Assessment & Plan Pt complains of pain with urination. Pt also complains of suprapubic pain. Plan - UA 4+ leukocyte esterase, >50 wbc - reflexed to UC pending results -started bactrim BID for 5 days ( last day 08/17) Atrial fibrillation (CMS/HCC) (HCC) Assessment & Plan Currently in sinus rhythm. Eliquis on hold will resume on August 15. Continue with flecainide Metoprolol restarted Hypertension Assessment & Plan Blood pressure has been under control Metoprolol restarted Bipolar affect, depressed (CMS/HCC) (HCC) Assessment & Plan Currently mood at baseline. Continue home med Celexa Essential tremor Assessment & Plan B/l hand with tremor - no changes in strength Irritable bowel syndrome with diarrhea Assessment & Plan Currently in no acute exacerbation. - continue Bentyl FEN: GI ppx: pantoprazole DVT ppx: eliquis on hold Consults: neurology Code: Full code dispo: MDM Principal Problem: TIA (transient ischemic attack) Active Problems: Hypertension Atrial fibrillation (CMS/HCC) (HCC) Dysuria Irritable bowel syndrome with diarrhea Essential tremor Bipolar affect, depressed (CMS/HCC) (HCC) Abdominal pain, generalized Resolved Problems: No resolved hospital problems. Letha Rose MD Family Medicine PGY-1 [facility] 08/13/2021 9:36 AM Cosigned by Naz Enriquez MD at 08/13/2021 4:15 PM IDENTIFICATION TECHNICIAN TIFICATION TECHNICIAN TIFICATION TECHNICIAN Associated attestation - Naz Enriquez MD - 08/13/2021 4:15 PM IDENTIFICATION TECHNICIAN I personally saw and examined the patient on 08/13/2021 and discussed the case with the resident. Kevin reviewed the resident's note and agree with the content and plan as written. Additional information as noted below. Patient reports feeling much better today. No chest pain. No shortness of breath. No facial droop. Currently receiving potassium for low potassium level. Still has tremor. On physical exam, she is inno acute distress. Speech is clear. Heart irregularly irregular. Lungs are clear. Abdomen is soft nontender. Strength is equal bilaterally. Initial potassium 2.9 with repeat 3.5 after replacement. Discussed with patient discharge today as long as potassium improved. Will still need to continue follow-up as an outpatient. Patient agreeable with discharge after follow-up potassium level known. Please see resident physician as well as discharge summary for further details. MDM: Yancy Enriquez MD Director of Family Medicine Inpatient Services Record [place], [facility] * Teresa Zepeda COTA - 08/13/2021 8:55 AM CST Occupational Therapy 08/13/21 0850 General OT Missed Visit Reason Unavailable (Pt eating breakfast, will check back @ later time.) Rehab Only - Missed Reasons - All Disciplines Unavailable (Comment) (Pt just eating breakfast, will check back @ later time.) TIFICATION TECHNICIAN * Letha Rose MD - 08/12/2021 6:00 PM CST General Medicine Daily Progress SUBJECTIVE Sarahy A Dellarosa??is a 51 y.o.??female??former smoker??with a h/o A- fib on Eliquis, cyclic vomiting, small bowel??intussusception, IBS, anxiety, and bipolar disorder, s/p cholecystectomy and hernia repair,??who presents to the ED with left-sided facial droop Chief complaint of left-sided facial droop, left face tingling, speech difficulty Interval History: Patient enjoying breakfast during examination. Speech clear. Believes that she isback to her baseline. Patient denies any numbness or tingling in the left side of the face. Patienthad her MRI and ultrasound of carotid arteries, echo done today. Reglan was discontinued. Patient to resume Eliquis on August 15. Will continue with aspirin 325. Patient denies any shortness of breath, headache, vision changes, chest pain, palpitations, weakness. OBJECTIVE Vitals: 24hr Min/Max: Temp Min: 36.1 ??C (96.9 ??F) Max: 37.1 ??C (98.7 ??F) Pulse Min: 58 Max: 66 BP Min: 120/74 Max: 131/76 Resp Min: 16 Max: 20 SpO2 Min: 98 % Max: 100 % Most Recent : Vitals: 12/13/21 1553 BP: 129/75 Pulse: 61 Resp: 16 Temp: 36.9 ??C (98.5 ??F) SpO2: 99% I/O last 2 completed shifts: In: 1951. [I.V.:1953.] Out: 200 [Urine:200] I/O this shift: In: 600 [P.O.:600] Out: - Physical Exam: General: Awake, alert, oriented x4, in no acute distress Eyes: EOMI, CANDDIA, sclare non icteric Neck: supple, trachea midline, thyroid not enlarged, no gross carotid bruits appreciated Pharynx: No gross oral lesion, tongue midline, mucosa moist Lungs: CTA, no wheezing Heart: Regular rate and rhythm Abd: +BS, Non Tender, Non distended, No gross hepatomegaly Lower Ext: No gross edema Neuro: clear speech , no facial droop observed ,Cranial nerves II-XII grossly intact. Moves all extremities equally, no gross sensory deficits Lab/Current Medication Review: Recent Results (from the past 24 hour(s)) Basic metabolic panel Collection Time: 08/12/21 3:11 AM Result Value Ref Range Sodium 144 135 - 145 mmol/L Potassium, pl 3.1 (L) 3.3 - 4.9 mmol/L Chloride 107 97 - 110 mmol/L CO2 22 22 - 32 mmol/L Anion gap 15 2 - 15 mmol/L BUN 12 8 - 25 mg/dL Creatinine 0.52 (L) 0.60 - 1.10 mg/dL Glucose 91 70 - 199 mg/dL Calcium 8.6 8.5 - 10.3 mg/dL Magnesium Collection Time: 08/12/21 3:11 AM Result Value Ref Range Magnesium 1.7 1.4 - 2.5 mg/dL Phosphorus Collection Time: 08/12/21 3:11 AM Result Value Ref Range Phosphorus, pl 3.1 2.3 - 4.5 mg/dL CBC with auto differential Collection Time: 08/12/21 3:11 AM Result Value Ref Range WBC 8.3 3.8 - 9.9 K/cumm Hgb 9.8 (L) 11.9 - 15.5 g/dL Hct 30.6 (L) 35.6 - 45.5 % Plt 277 150 - 400 K/cumm MPV 11.1 9.1 - 12.3 fL RBC 3.47 (L) 3.90 - 5.20 M/cumm MCV 88.2 81.3 - 96.4 fL MCH 28.2 27.1 - 33.3 pg MCHC 32.0 (L) 32.3 - 35.7 g/dL RDW CV 15.7 (H) 11.1 - 14.9 % RDW SD 49.6 (H) 35.7 - 48.1 fL NRBC abs 0.00 0.00 - 0.01 K/cumm Differential, auto Collection Time: 08/12/21 3:11 AM Result Value Ref Range Neutrophil abs 4.9 1.7 - 6.5 K/cumm Imm gran abs 0.0 0.0 - 0.1 K/cumm Lymphocyte abs 2.2 0.8 - 3.3 K/cumm Monocyte abs 1.1 (H) 0.2 - 0.8 K/cumm Eosinophil abs 0.1 0.0 - 0.5 K/cumm Basophil abs 0.0 0.0 - 0.1 K/cumm Neutrophil pct 58.8 % Imm gran pct 0.2 % Lymphocyte pct 26.0 % Monocyte pct 13.3 % Eosinophil pct 1.2 % Basophil pct 0.5 % eGFR Collection Time: 08/12/21 3:11 AM Result Value Ref Range eGFR 109 mL/min/1.73 m2 Hemoglobin A1c Collection Time: 08/12/21 3:12 AM Result Value Ref Range Hgb A1C 5.0 4.0 - 5.6 % Estimated Average Glucose 97 mg/dL Lipid panel Collection Time: 08/12/21 3:12 AM Result Value Ref Range Cholesterol 192 30 - 199 mg/dL Triglycerides 70 <=149 mg/dL HDL 55 >=40 mg/dL LDL, calculated 123 <=129 mg/dL Non-HDL Cholesterol 137 mg/dL Chol/HDL ratio 3 ECG 12 lead Result Date: 08/12/2021 Narrative: Vent Rate: 69 bpm RR Interval: 864 msec OR Interval: 141 msec QRS Duration: 70 msec QT Interval: 392 msec QTC Interval: 411 msec P-R-T [place]: 41 - 41 - 18 degrees SINUS RHYTHM WITH OCCASIONAL SUPRAVENTRICULAR PREMATURE COMPLEXES NONSPECIFIC T-WAVE ABNORMALITY BORDERLINE ECG No change fromprior EKG Electronically Signed By: Arnaldo Yan MD ECG 12 lead Result Date: 08/09/2021 Narrative: Vent Rate: 65 bpm RR Interval: 916 msec OR Interval: 133 msec QRS Duration: 81 msec QT Interval: 425 msec QTC Interval: 437 msec P-R-T [place]: 142 - 173 - 165 degrees SINUS [...] Boone Hernandez M.D. AR: GRAEME Report ID: [id number] Reading Location: [id number] CT Abdomen Pelvis W Contrast Result Date: [...] Surgically absent. BILE DUCTS: No intrahepatic or extrahepaticductal dilatation. PANCREAS: Enhances normally. No peripancreatic inflammatory [...] of the abdominal aorta and branch vessels. MUSCULOS KELETAL: No suspicious abnormality. OTHER: No other abnormality. [...] IS AN ELECTRONICALLY VERIFIED FINAL REPORT 08/08/2021 10:20PM - Electronically signed by Rip De La Vega M.D. RT: RT Report ID: [id number] Reading Location: [id number] MRI Brain WO Contrast Result Date: 08/12/2021 Narrative: EXAM DESCRIPTION: MRI BRAIN WO CONTRAST REASON FOR STUDY: Neuro deficit, acute, stroke suspected left-sided facial droop since Thursday at 7 PM. Associated symptoms include speech difficulty and generalized tremors. She states that these symptoms have improved since last night, but are still present. Additionally, she reports decreased appetite, nausea, and mild, intermittent abdominalcramping, which have been improving since she was recently admitted to this facility for small bowel intussusception TECHNIQUE: Multiplanar imaging includes non-contrasted T1, T2, FLAIR, and diffusion with ADC map sequences. Additional sequence(s) sensitive to blood products. Images stored on PACS.COMPARISON: Head CT 08/11/2021. FINDINGS: CEREBRUM: There is no mass, mass effect or midline shift.No intracranial hemorrhage or blood degradation products. WHITE MATTER: Few small T2/FLAIR hyperintensities affecting the supratentorial white matter are nonspecific and may not be clinically signific ant. Most likely this is on the basis of very mild chronic ischemic microangiopathy. POSTERIOR FOSSA: Unremarkable. There is no cerebellar tonsillar ectopia. DIFFUSION IMAGING: No cytotoxic edema is identified. EXTRAAXIAL SPACES: No mass or fluid collection. BRAIN VOLUME: Age appropriate. No evidence of hydrocephalus. PITUITARY: Unremarkable. VASCULATURE: Flow voids at the skull base are present.ORBITS: Unremarkable. PARANASAL SINUSES AND MASTOIDS: Sinuses and mastoids are clear. OTHER: No other significant finding. IMPRESSION: Mild chronic ischemic microangiopathy. No acute intracranial abnormality or recent infarction. THIS IS AN ELECTRONICALLY VERIFIED FINAL REPORT 08/12/2021 8:53 AM - Electronically signed by Rordi Hayes D.O. : Report ID: [id number] Reading Location: [id number] US Carotids Duplex Bilateral Result Date: 08/12/2021 Narrative: EXAM DESCRIPTION: US CAROTIDS DUPLEX BILATERAL REASON FOR STUDY: Other Cerebral Infarction (Stroke) Stroke, left-sided facial tingling and left extremity weakness since last night. TECHNIQUE: Aj scale, color Doppler and spectral Doppler imaging were performed. Velocity criteria are extrapolated from diameter as defined by the Society of Radiologists in Ultrasound Consensus Conference. All velocity measurements are in cm/sec. COMPARISON: None FINDINGS: Right: Mild intimal thickening. Distal CCA Peak Systolic Velocity: 95.9 Peak ICA Systolic Velocity: 122.8 Peak ICA/CCA Systolic Ratio: 1.3 Vertebral Artery: Antegrade flow. Left: Mild intimal thickening. Distal CCA Peak Systolic Ve locity: 94.2 Peak ICA Systolic Velocity: 106.9 Peak ICA/CCA Systolic Ratio: 1.1 Vertebral Artery: Antegrade flow. IMPRESSION: 1. Velocities correspond to a less than 50% diameter stenosis of the right internal carotid artery. 2. Velocities correspond to a less than 50% diameter stenosis of the leftinternal carotid artery. 3. Antegrade direction of flow of the bilateral vertebral arteries. REFERENCE: Consensus Panel Aj-Scale and Doppler US Criteria for Diagnosis of ICA Stenosis. No stenosis: ICA PSV <125*, 0% plaque, ICA/CCA PSV Ratio <2.0, ICA EDV <40*. <50% stenosis: ICA PSV <125*, <50% plaque, ICA/CCA PSV Ratio <2.0, ICA EDV <40*. 50-69% stenosis: ICA PSV 125-230*, >=50% plaque, ICA/CCA PSV Ratio 2.0-4.0, ICA EDV 40-100*. >=70% but less than near occlusion >230, >=50% plaque, ICA/CAA PSV Ratio >4.0, ICA EDV >100*. *cm/sec Plaque estimate (diameter reduction) with aj-scale and color Doppler US. RSNA 2003 THIS IS AN ELECTRONICALLY VERIFIED FINAL REPORT 08/12/2021 9:24 AM - Electronically signed by Sukhjinder Pastrana M.D. JR: Report ID: [id number] Reading Location: [place] [address] CT Stroke Head WO Contrast Result Date: 08/11/2021 Narrative: EXAM DESCRIPTION: CT STROKE HEAD WO CONTRAST REASON FOR STUDY: Neuro deficit, acute, stroke suspected, Stroke Left sided facial tingling and left extremity weakness started around 7 pm last night. TECHNIQUE: Axial images acquired through the brain without intravenous contrast. Images stored on PACS. Automated exposure control was used as a dose optimization technique for this examination. COMPARISON: No prior. FINDINGS: BRAIN: There are no extra-axial fluid collections. No evidence of hemorrhage. Aj-white matter differentiation is normal. Ventricles and sulci are consistent with age. No shift of midline structures or of mass effect. EXTRA-AXIAL SPACES: No fluid collections. No m asses. CALVARIUM: No fracture. SINUSES/MASTOIDS: No fluid or mucosal thickening. ORBITS: No significant abnormality. OTHER: No other significant abnormality. IMPRESSION: 1. No acute intracranial findings. 2. Findings called by the operation support center at 10:15 a.m. 08/11/2021. THIS IS AN ELECTRONICALLY VERIFIED FINAL REPORT 08/11/2021 10:15 AM - Electronically signed by Say Ford M.D. MJ: KIA Report ID: [id number] Reading Location: [id number] Current Facility-Administered Medications Medication Dose Route Frequency Provider Last Rate Last Admin ??? [Held by Provider] apixaban (ELIQUIS) tablet 5 mg 5 mg oral BID [place] MD ??? aspirin tablet 325 mg 325 mg oral Daily [place] MD 325 mg at 08/12/21936 Or ??? aspirin suppository 300 mg 300 mg rectal Daily [place] MD ??? atorvastatin (LIPITOR) tablet 40 mg 40 mg oral Daily [place] MD 40 mg at 08/11/212125 ??? citalopram (CeleXA) tablet 10 mg 10 mg oral Daily [place] MD 10 mg at 08/12/21937 ??? dicyclomine (BENTYL) capsule 20 mg 20 mg oral BID [place] MD 20 mg at 08/12/21936 ??? flecainide (TAMBOCOR) tablet 50 mg 50 mg oral BID [place] MD 50 mg at 08/12/21937 ??? [Held by Provider] metoprolol XL (TOPROL-XL) extended release tablet 25 mg 25 mg oral Daily [place] MD ??? ondansetron (ZOFRAN) injection 4 mg 4 mg intravenous Q6H PRN [place] MD 4 mg at 08/12/21 0720 ??? pantoprazole DR (PROTONIX) extended release tablet 40 mg 40 mg oral Q12H [place] MD 40 mg at 08/12/21 0937 A/P: MDM Principal Problem: Cerebrovascular accident (CVA) due to embolism of precerebral artery (CMS/HCC) ([facility]) Active Problems: Irritable bowel syndrome with diarrhea Essential tremor Hypertension Atrial fibrillation (CMS/HCC) (HCC) Abdominal pain, generalized Bipolar affect, depressed (CMS/HCC) ([facility]) Resolved Problems: No resolved hospital problems. Letha Rose MD Family Medicine PGY-1 [facility] 08/12/2021 5:39 PM Assessment/Plan * TIA (transient ischemic attack) Assessment & Plan Sarahy Mendezalexanderelise 51-year-old female presenting with left facial droop and left face tingling sensation. Not a tPA candidate. NA score of 2. Has had previous similar event. Currently back to baselinewithout any deficits. CT of head showing no intracranial findings, most likely TIA rather than CVA, due to the findings on the CT and MRI. MRI was done today: Mild chronic ischemic microangiopathy. No acute intracranial abnormality or recent infarction Echo was done pending results Ultrasound of carotid arteries: Less than 50% of stenosis. Continue aspirin 325 Continue atorvastatin 40 mg Atrial fibrillation (CMS/HCC) ([facility]) Assessment & Plan Currently in sinus rhythm. Eliquis on hold will resume on August 15. Continue with flecainide Metoprolol on hold will resume tomorrow Hypertension Assessment & Plan Blood pressure has been under control Metoprolol has been on hold-to allow for permissive hypertension for the next 24 hours, will restart tomorrow Irritable bowel syndrome with diarrhea Assessment & Plan Currently in no acute exacerbation. -continue Bentyl Bipolar affect, depressed (CMS/HCC) ([facility]) Assessment & Plan Currently mood at baseline. Continue home med Celexa FEN: No fluids, normal diet GI ppx: Pantoprazole Code: Full code DVT prophylaxis: None Dispo: 08/13/2021 Cosigned by Amelia Riley MD at 08/12/2021 6:45 PM IDENTIFICATION TECHNICIAN TIFICATION TECHNICIAN TIFICATION TECHNICIAN Associated attestation - Amelia Riley MD - 08/12/2021 6:45 PM IDENTIFICATION TECHNICIAN I personally saw and examined the patient on 08/12/2021 and discussed the case with the resident. Ihave reviewed the resident's note and agree with the content and plan as written. Additional information as noted below. 51yo F with PMHx of bipolar disorder, paroxysmal AFib, cannabis use disorder, cyclical vomiting, IBS admitted as a stroke 1 for facial droop 4 hours after discharge on 08/10. Workup for CVA overall negative, MRI today obtained without evidence of acute infarct. Patient likely developed a TIA and asymptomatically at baseline today, PT/OT/PLASTIC STRAIGHTENING ROLL OPERATOR eval performed, no needs noted. Will hold Reglan, likelycontributed to neuro symptoms. Still awaiting echo with bubble study, can discharge if normal, anticipate discharge tomorrow. Rest of plan per resident note Amelia Riley MD Family Medicine Hospitalist Attending Physician - JADYN Rodarte Family [facility] MDM: Moderate complexity * Maxwell Romero, OT - 08/12/2021 3:48 PM CST Occupational Therapy Initial EValuation Past Medical History: Diagnosis Date Anxiety Arthritis Bipolar affect, depressed (CMS/HCC) ([facility]) Cyclic vomiting syndrome Depression Headache, tension-type Hypertension Migraine Stroke (CMS/HCC) ([facility]) Weight loss 08/12/21 1219 General Chart Reviewed Yes Session Type Evaluation OT Received On 08/12/21 Safe Environment Arm Band Checked;Notified RN;Call Light within Reach Subjective Agreeable to Therapy Family/Caregiver Present Yes Occupational Therapy-Patient Goal go home Precautions Precautions Fall risk Home Living Type of Home House Home Layout One level Home Access Stairs to enter without rails Entrance Stairs-Rails None Entrance Stairs-Number of Steps 3 Bathroom Shower/Tub Tub/shower unit Bathroom Toilet Standard Bathroom Equipment Hand-held shower Home Mobility Equipment None Prior Function Level of [place] Independent with ADLs;Independent functional transfers;Independent with ambulation;Independent with homemaking with ambulation Lives With Spouse;Daughter Receives Help From Spouse/Significant other;Family (dtr's S.O, and grandson) Driving Yes Fall within the last 6 months Yes Fall within the last 6 months comment 2 falls, once off of front stairs, then when playing with grandson ADL ADLS (WDL) X Grooming Grooming: Where assessed Standing at sink Grooming: Level of assistance Independent Grooming: Assistance with Wash/dry hands LE Dressing LE Dressing: Where assessed Sitting;Edge of bed LE Dressing: Level of assistance Independent LE Dressing: Assistance with Don/doff R sock;Don/doff L sock Toileting Toileting: Where assessed Toilet Toileting: Level of assistance Independent Toileting: Assistance with Clothing management up;Clothing management down Toilet Transfers Toilet Transfer From Bed Toilet Transfer Type To and from Toilet Transfer to Standard toilet Toilet Transfer Technique Ambulating Toilet Transfer: Equipment No device Toilet Transfers Independent Pain Assessment Pain Assessment No/denies pain Activity Tolerance Endurance Endurance does not limit participation in activity Cognition Orientation Oriented X4 (person, place, time, situation) Bed Mobility 1 Bed Mobility From 1 Supine Bed Mobility Type 1 To and from Bed Mobility to 1 Edge of bed Level of Assistance 1 Independent Transfer 1 Transfer From 1 Bed Transfer Type 1 To and from Transfer to 1 Toilet Technique 1 Stand pivot;Sit to stand;Stand to sit Transfer Device 1 No device Transfer Level of Assistance 1 Independent RUE Assessment RUE Assessment WFL LUE Assessment LUE Assessment WFL OT Treatment/Exercise Comments OT Treatment/Exercise Comments pt reports LT UE fatigue with activity, educated in home exercises and continueing to use LT UE with all activity. Pt requests one more OT visit to establish HEP. Assessment Prognosis Excellent Plan Plan If this is the last note, consider this the discharge summary;Plan of care initiated Recommendation/Plan OT Recommendation Home with family OT Frequency Follow-up visit only Treatment/Interventions Strengthening;Therapeutic exercise OT Evaluation Complete Yes Multi-Disciplinary Problems (from Occupational Therapy) Active Problems Problem: OT Misc Start Date: 08/12/21 Goal Start Date Expected End Date End Date OT [facility] [place]12[place] 08/19/21 -- Goal Details: Patient will be independent with UE HEP x 15 reps each to improve lacey UE strength andcoordination for improved functional capacity and ADL independence. TIFICATION TECHNICIAN * Lesvia Bell RN - 08/12/2021 1:21 PM CST CM Initial Assessment Interview Note Information Obtained From: Patient (08/12/211317) Admission Source: ED Impression: c/o L. Sided facial droop and difficulty speaking. Plan Includes: Assessment and discharge planning Primary Source of Transportation: Health Insurance Coverage: [facility] [employer] and Medicaid [place] Prescription Coverage: yes Pharmacy: [facility] Primary Care Provider: Parmjit Dai MD Prior to Admission: Primary Caregiver: Self Support System: Spouse/Significant Other,Family members,Children Home Care Services: No Living Arrangements: Spouse/significant other,Children,Family members Type of Residence: Private residence Steps in home? : Yes, Outside of home Number of steps outside:: 3 steps (08/12/211317) Potential discharge needs include: Dialysis: Behavioral Health Services: Behavioral Health Services: No (08/12/211317) Patient expects to be Discharged to: Private residence, (08/12/211317) Additional Information: Discharge plan discussed with pt. Goal is to return home with spouse and family. Spouse will be her ride home. Pt. Is independent and uses no ambulatory aides. Barrier to discharge is resolution of L. Sided facial droop and difficulty speaking. No needs at this time. CM willcontinue to follow. Patient's Identified Problem/Goal Problem: Ensure acute medical needs are met and that patient has a safe discharge plan. Goal: Secure a discharge plan that patient/family are agreeable with and ensure patient has continuum of care. Case management will follow for discharge planning and send referrals as needed. Lesvia Bell RN TIFICATION TECHNICIAN * Vanessa Calvillo PT - 08/12/2021 10:37 AM CST Physical Therapy INITIAL EVALUATION PATIENT'S NAME:Sarahy Mays :1970 AGE:51 y.o. TIME IN:1040 TIME OUT:1058 CURRENT DIAGNOSIS AND HOSPITAL COURSE:left facial droop and speech difficulty with h/o a-fib, cyclic vomiting, small bowel intussusception, IBS, anxiety, bipolar, s/p cholecystectomy, hernia repair Patient Active Problem List Diagnosis ??? Irritable bowel syndrome with diarrhea ??? Essential tremor ??? Jerky body movements ??? Orthostatic dizziness ??? Hypertension ??? Atrial fibrillation (CMS/HCC) (HCC) ??? Palpitations ??? Migraine headache ??? Abdominal pain, generalized ??? Cyclic vomiting syndrome ??? Bipolar affect, depressed (CMS/HCC) (HCC) ??? Intussusception intestine (CMS/HCC) (HCC) ??? Cerebrovascular accident (CVA) due to embolism of precerebral artery (CMS/HCC) (HCC) Past Medical History: Diagnosis Date ??? Anxiety [...] ABLATION ??? HERNIA REPAIR ??? TUBAL LIGATION SUBJECTIVE LIVES WITH: , dtr and dtrs fiance and grandson LIVING ENVIRONMENT: house with 3 steps to enter without handrails PRIOR LEVEL OF FUNCTION: independent with bathing, dressing, cooking and cleaning. Family does not assist with equipment cleaner EQUIPMENT OWNED: no DME EQUIPMENT USED: no DME FALL HISTORY: reports 3 falls in the last 6 months, reporting that it feels like she in not pickingup her left foot far enough SOCIAL SUPPORTS: , dtr and dtrs fiance work, patient is home alone PATIENT/FAMILY GOAL: none stated MENTAL STATUS/ORIENTATION: Alert and oriented x4 OBJECTIVE PRECAUTIONS: fall risk APPEARANCE/POSTURE: supine in bed with IV attached PAIN: Pre-therapy pain level: 5/10 Pain location: back Pain intervention: denies need for pain meds Post-therapy pain level/response to intervention: 01/07 VITAL SIGNS: Resting heart rate: 57 Post-activity heart rate: 62 Resting O2 sat: 98 Post-activity O2 sat: 97 LE ASSESSMENTS: Right LE ROM: WFL Left LE ROM: WFL Right LE strength: WFL Left LE strength: WFL Coordination: not tested Tone: WFL MOBILITY: Bed mobility: supine to sit with independence Transfers: sit to/from stand with independence Ambulation: Distance: 500' Assistive device: no assistive device Level of assist: independent Deviations: steady gait Stairs: Not tested Balance/Special Tests: Static sitting balance: good Dynamic sitting balance: good Static standing balance: good Dynamic standing balance: good 6 CLICK: Basic Mobility - 6 Click How much difficulty does the patient have: Turning over in bed: None How much difficulty does the patient currently have: Sitting down and standing up from a chair witharms?: None How much difficulty does the patient have: Moving from lying on back to sitting on the side of the bed?: None How much difficulty does the patient have: Moving to and from a bed to a chair including wheelchair?: None How much help does the patient currently need: Walk in hospital room?: None How much help from another person does the patient currently need: Climbing 3-5 steps with a railing?: None Total 6 Click Score (range 6-24): 24 APPEARANCE/POSTURE (end of session): sitting in bedside chair with IV attached EDUCATION: patient educated on plan of care RESPONSE TO EDUCATION: verbalizes understanding ASSESSMENT PROBLEM LIST: none noted at this time BARRIERS TO LEARNING: NA BARRIERS TO DISCHARGE: NA REHAB POTENTIAL/PROGNOSIS: good PLAN RECOMMENDATIONS: home with family TREATMENT PLAN/INTERVENTIONS: initial discharge, independent with gait and mobility FREQUENCY: one time visit EQUIPMENT RECOMMENDATIONS: none noted at this time Refer to multi-disciplinary care plan section for PT specific goals. If this is the last note, please consider this the discharge summary. TIFICATION TECHNICIAN * Katharine Green, PLASTIC STRAIGHTENING ROLL OPERATOR - 08/12/2021 9:32 AM CST Speech Language/Pathology 08/12/21 0900 General Chart Reviewed Yes Session Type Evaluation PLASTIC STRAIGHTENING ROLL OPERATOR Received On 08/12/21 Safe Environment Call Light within Reach;Session Completed Bedside Subjective Agreeable to Therapy Family/Caregiver Present Yes ( was present) Current Functional Status PLASTIC STRAIGHTENING ROLL OPERATOR Swallowing WFL PLASTIC STRAIGHTENING ROLL OPERATOR Cognition WFL PLASTIC STRAIGHTENING ROLL OPERATOR Communication WFL Cognition Overall Cognitive Status WFL Arousal/Alertness Alert Attention Span Appears intact Current communication Appears Intact Orientation Oriented X4 (person, place, time, situation) Compliance/Behavior Easy to engage Perseveration Not present Articulation/Phonology Speech WFL Motor Speech Apraxia None present Verbal Expression Primary Mode of Expression Verbal Comments Comments Pt just returned from MRI, she was alert & talkative & ready to eat Speech Therapy Prognosis Services No skilled PLASTIC STRAIGHTENING ROLL OPERATOR services at this time Recommendations PLASTIC STRAIGHTENING ROLL OPERATOR Recommendation (Add'l Services) No further PLASTIC STRAIGHTENING ROLL OPERATOR indicated PLASTIC STRAIGHTENING ROLL OPERATOR - OK to Discharge Yes Speech Evaluation Complete Yes TIFICATION TECHNICIAN documented in this encounter H&P Notes * [place] Huert[place] MD - 08/11/2021 7:52 PM CST Adult Hospitalist Service History and Physical Patient Name: Sarahy Mays Patient : 1970 Age/Sex: 51 y.o. female Room/Bed: [place] [id number] Admission Date/Time: 08/11/2021 10:00 AM Date: 08/11/2021 Time: 7:52 PM Primary Care Physician: Parmjit Dai MD PCP Office Location: [address] [place] [address] PCP SUBJECTIVE: Sarahy Mays is a 51 y.o. female former smoker with a h/o A-fib on Eliquis, cyclic vomiting, small bowel intussusception, IBS, anxiety, and bipolar disorder, s/p cholecystectomy and hernia repair, who presents to the ED with left-sided facial droop HPI Patient presented to the emergency department for evaluation of left-sided facial drooping onset 7:00 p.m. yesterday evening associated with speech difficulty generalized tremors, decreased appetite,some nausea mild intermittent cramping. Patient reports history of recent admission to the facilitywith intussusception which resolved spontaneously. History of AFib currently on Eliquis oral anticoagulation. Had been compliant with the medications. On further workup in the ED noted stable vital signs. Blood work was unremarkable. CT head without contrast negative for any acute intracranial findings. NIH score 2. Tele stroke team consulted. Recommended against tPA. Patient did meet the criteria for thrombectomyas well. Patient was referred for admission for stroke workup. Review of Systems: Constitutional Denies: weight loss, weight gain, fever, chills, night sweats, fatigue Eyes Denies: change in vision, double vision, eye pain, eye discharge, icterus ENT Denies: change in hearing, ear pain, ear discharge, nose bleed, nasal congestion, sore throat Respiratory Denies: SOB, wheezing, cough, sputum, hemoptysis CV Denies: chest pain, palpitations, syncope, edema, dyspnea GI Complains of: Mild intermittent abdominal pain, decreased appetite, nausea, denies vomiting, changein bowel habitus, diarrhea, constipation, melena, BRBPR Denies: dysuria, frequency, hematuria, nocturia, urgency Metabolic Denies: cold intolerance, heat intolerance, polyphagia, polydipsia Neurologic Denies: headache, dizziness, seizure, change in mental status, focal weakness, focal numbness. Complains of left-sided facial drooping, speech difficulties. Symptoms currently almost completely resolved Musculoskeletal Denies: myalgia, joint pain, joint redness, joint swelling, extremity pain Hematologic Denies: bleeding, bruising, hematoma, lymphadenopathy, icterus Past Medical History: Past Medical History: Diagnosis Date ??? Anxiety ??? Arthritis ??? Bipolar affect, depressed (CMS/HCC) ([facility]) ??? Cyclic vomiting syndrome ??? Depression ??? Headache, tension-type ??? Hypertension ??? Migraine ??? Stroke (CMS/HCC) ([facility]) ??? Weight loss Past Surgical History: Past Surgical History: Procedure Laterality Date ??? ABDOMINAL SURGERY 2013 hiatel hernia repair ??? ARTHROSCOPIC SURGERY Left 1984,1994,2001 knee ??? SECTION 1992 ??? CHOLECYSTECTOMY ??? ENDOMETRIAL ABLATION ??? HERNIA REPAIR ??? TUBAL LIGATION Family History: Family History Problem Relation Age of Onset ??? Esophageal cancer Maternal Grandmother ??? Heart disease Maternal Grandmother ??? Stroke Maternal Grandmother ??? Hypertension Maternal Grandmother ??? Migraines Mother Social History: Social History Tobacco Use ??? Smoking status: Former Smoker Start date: 1983 Quit date: 2000 Years since quittin.9 ??? Smokeless tobacco: Never Used ??? Tobacco comment: off and on Substance Use Topics ??? Alcohol use: No Comment: on occasion Allergies: Allergies Allergen Reactions ??? Compazine [Prochlorperazine] Other (See comments) made me feel weird, odd also agitation ??? Phenergan [Promethazine] Agitation ??? Zithromax [Azithromycin] Stomach upset Home Medications: Medications Prior to Admission Medication Sig Dispense Refill Last Dose ??? escitalopram (LEXAPRO) 10 mg tablet Take 10 mg by mouth daily 08/10/2021 at Unknown time ??? apixaban (ELIQUIS) 5 mg tablet Take 5 mg by mouth 2 (two) times a day 08/11/2021 at Unknown time ??? dicyclomine (BENTYL) 10 mg capsule Take 20 mg by mouth 2 (two) times a day 08/10/2021 at Unknown time ??? flecainide (TAMBOCOR) 50 mg tablet Take 50 mg by mouth 2 (two) times a day 08/11/2021 at Unknown time ??? metoclopramide (REGLAN) 10 mg tablet Take 1 tablet (10 mg total) by mouth 3 (three) times a daybefore meals 90 tablet 0 08/10/2021 at Unknown time ??? metoprolol XL (TOPROL-XL) 25 mg extended release tablet Take 25 mg by mouth daily 08/10/2021 atUnknown time ??? ondansetron (ZOFRAN) 4 mg tablet Take 1 tablet (4 mg total) by mouth every 6 (six) hours 12 tablet 0 08/11/2021 at Unknown time ??? ondansetron (ZOFRAN) 4 mg tablet Take 1 tablet (4 mg total) by mouth every 8 (eight) hours as needed for nausea or vomiting 30 tablet 0 Unknown at Unknown time ??? pantoprazole DR (PROTONIX) 40 mg EC tablet Take 40 mg by mouth every 12 (twelve) hours 08/11/2021 at Unknown time ??? SUMAtriptan (IMITREX) 50 mg tablet Take 50 mg by mouth once as needed for migraine. May repeat dose once in 2 hours if no relief. Do not exceed 2 doses in 24 hours. More than a month at Unknown time Objective: Vitals: Patient Vitals for the past 24 hrs: Patient Vitals for the past 24 hrs: BP Temp Temp src Pulse Resp SpO2 Height Weight 08/11/21 1937 123/70 36.2 ??C (97.2 ??F) Temporal 66 18 99 % -- -- 08/11/21 1800 -- -- -- 64 -- -- -- -- 08/11/21 1456 122/72 36.4 ??C (97.6 ??F) Temporal 64 18 99 % -- -- 08/11/21 1313 126/79 36.4 ??C (97.5 ??F) Temporal 59 18 99 % 162.6 cm (5' 4 ) 75.8 kg (167 lb) 08/11/21 1030 126/70 -- -- 67 19 98 % -- -- 08/11/21 1029 -- 36.8 ??C (98.2 ??F) Oral -- -- -- -- -- 08/11/21 1017 126/77 -- -- 67 18 99 % 162.6 cm (5' 4 ) 73 kg (161 lb) 08/11/21 1002 (!) 143/107 -- -- -- -- -- -- -- Physical Exam: General: Awake, alert, oriented x4, in no acute distress Eyes: EOMI, CANDIDA, sclare non icteric Neck: supple, trachea midline, thyroid not enlarged, no gross carotid bruits appreciated Pharynx: No gross oral lesion, tongue midline, mucosa moist Lungs CTA Heart: [id number] Abd: +BS, Non Tender, Non distended, No gross hepatomegaly Lower Ext: No gross edema Neuro: Cranial nerves II-XII grossly intact. Moves all extremities equally, no gross sensory deficits Level of Consciousness (1a.): 0 LOC Questions (1b.): 0 LOC Commands (1c.): 0 Best Gaze (2.): 0 Visual (3.): 0 Facial Palsy (4.): 1 Motor Arm, Left (5a.): 0 Motor Arm, Right (5b.): 0 Motor Leg, Left (6a.): 0 Motor Leg, Right (6b.): 0 Limb Ataxia (7.): 0 Sensory (8.): 1 Best Language (9.): 0 Dysarthria (10.): 0 Extinction and Inattention (11.) (Formerly Neglect): 0 Total: 2 Musculoskeletal: no gross joint erythema, edema, tenderness Genitourinary: No suprapubic or CVA tenderness Skin: No skin rashes, warm and dry to palpation Laboratory Results: Recent Results (from the past 24 hour(s)) POCT glucose Collection Time: 08/11/21 10:03 AM Result Value Ref Range Glucose, POC 117 (H) 71 - 98 mg/dL Basic metabolic panel Collection Time: 08/11/21 10:10 AM Result Value Ref Range Sodium 140 135 - 145 mmol/L Potassium, pl 3.3 3.3 - 4.9 mmol/L Chloride 103 97 - 110 mmol/L CO2 27 22 - 32 mmol/L Anion gap 10 2 - 15 mmol/L BUN 12 8 - 25 mg/dL Creatinine 0.71 0.60 - 1.10 mg/dL Glucose 123 70 - 199 mg/dL Calcium 9.1 8.5 - 10.3 mg/dL CBC with auto differential Collection Time: 08/11/21 10:10 AM Result Value Ref Range WBC 7.8 3.8 - 9.9 K/cumm Hgb 11.4 (L) 11.9 - 15.5 g/dL Hct 35.8 35.6 - 45.5 % Plt 330 150 - 400 K/cumm MPV 10.1 9.1 - 12.3 fL RBC 4.04 3.90 - 5.20 M/cumm MCV 88.6 81.3 - 96.4 fL MCH 28.2 27.1 - 33.3 pg MCHC 31.8 (L) 32.3 - 35.7 g/dL RDW CV 15.3 (H) 11.1 - 14.9 % RDW SD 49.5 (H) 35.7 - 48.1 fL NRBC abs 0.00 0.00 - 0.01 K/cumm Protime-INR Collection Time: 08/11/21 10:10 AM Result Value Ref Range PT 18.6 (H) 9.5 - 13.6 sec INR 1.7 (H) 0.9 - 1.2 aPTT Collection Time: 08/11/21 10:10 AM Result Value Ref Range aPTT 41 (H) 27 - 37 sec Troponin T high-sensitivity series (baseline, 2hr, 4hr, 6hr) Collection Time: 08/11/21 10:10 AM Result Value Ref Range Trop T hs <6 <=14 ng/L Hepatic function panel Collection Time: 08/11/21 10:10 AM Result Value Ref Range Bilirubin, total 0.2 0.1 - 1.2 mg/dL Bilirubin, direct <0.2 0.1 - 0.3 mg/dL Protein, pl 7.5 6.5 - 8.5 g/dL Albumin 4.4 3.5 - 5.0 g/dL Alk phos 83 40 - 130 Units/L ALT 12 7 - 45 Units/L AST 23 10 - 45 Units/L Differential, auto Collection Time: 08/11/21 10:10 AM Result Value Ref Range Neutrophil abs 5.4 1.7 - 6.5 K/cumm Imm gran abs 0.0 0.0 - 0.1 K/cumm Lymphocyte abs 1.5 0.8 - 3.3 K/cumm Monocyte abs 0.8 0.2 - 0.8 K/cumm Eosinophil abs 0.0 0.0 - 0.5 K/cumm Basophil abs 0.0 0.0 - 0.1 K/cumm Neutrophil pct 69.4 % Imm gran pct 0.3 % Lymphocyte pct 19.4 % Monocyte pct 10.1 % Eosinophil pct 0.4 % Basophil pct 0.4 % eGFR Collection Time: 08/11/21 10:10 AM Result Value Ref Range eGFR 97 mL/min/1.73 m2 Radiology: ECG 12 lead Result Date: 08/09/2021 Narrative: Vent Rate: 65 bpm RR Interval: 916 msec OR Interval: 133 msec QRS Duration: 81 msec QT Interval: 425 msec QTC Interval: 437 msec P-R-T [place]: 142 - 173 - 165 degrees SINUS [...] keep anything down Prior exam done on 12/09/21 at 9:35 pm For evaluation of small [...] and small bowel appear normal. Colon and appendi x unremarkable. OTHER ABDOMINAL/PELVIS: Major vascular structures are grossly patent and normal in caliber. No enlarged lymph node or free fluid. MSK: Mild facet arthropathy. BODY WALL: Normal. IMPRESSION: Intussusception has resolved. No acute abnormality identified. THIS IS AN ELECTRONICALLY VERIFIED FINAL REPORT 08/09/2021 5:39 AM - Electronically signed by Boone Hernandez M.D. AR: GRAEME Report ID: [id number] Reading Location: [id number] CT Abdomen Pelvis W Contrast Result Date: [...] of the abdominal aorta and branch vessels. MUSCULOS KELETAL: No suspicious abnormality. OTHER: No other abnormality. [...] IS AN ELECTRONICALLY VERIFIED FINAL REPORT 08/08/2021 10:20PM - Electronically signed by Rip De La Vega M.D. RT: RT Report ID: [id number] Reading Location: [id number] CT Stroke Head WO Contrast Result Date: 08/11/2021 Narrative: EXAM DESCRIPTION: CT STROKE HEAD WO CONTRAST REASON FOR STUDY: Neuro deficit, acute, stroke suspected, Stroke Left sided facial tingling and left extremity weakness started around 7 pm last night. TECHNIQUE: Axial images acquired through the brain without intravenous contrast. Images stored on PACS. Automated exposure control was used as a dose optimization technique for this examination. COMPARISON: No prior. FINDINGS: BRAIN: There are no extra-axial fluid collections. No evidence of hemorrhage. Aj-white matter differentiation is normal. Ventricles and sulci are consistent with age. No shift of midline structures or of mass effect. EXTRA-AXIAL SPACES: No fluid collections. No m asses. CALVARIUM: No fracture. SINUSES/MASTOIDS: No fluid or mucosal thickening. ORBITS: No significant abnormality. OTHER: No other significant abnormality. IMPRESSION: 1. No acute intracranial findings. 2. Findings called by the operation support center at 10:15 a.m. 08/11/2021. THIS IS AN ELECTRONICALLY VERIFIED FINAL REPORT 08/11/2021 10:15 AM - Electronically signed by Say Ford M.D. MJ: KIA Report ID: [id number] Reading Location: [place] [id number] EKG: Rate: ?ECG rate: ??69 ?ECG rate assessment: normal ?? Rhythm: ?Rhythm: sinus rhythm ?? Ectopy: ?Ectopy comment: ??PACs Interpretation: ?Interpretation comment: ??Nothing acute ASSESSMENT AND PLAN: Principal Problem: Cerebrovascular accident (CVA) due to embolism of precerebral artery (CMS/HCC) (HCC) Patient currently is on Eliquis oral anticoagulation. Noted candidate for tPA or thrombectomy. NIH score 2 Tele stroke recommendations appreciated. Will hold Eliquis for now and resume in 4 days. Started on aspirin and Lipitor. Will check hemoglobin A1c and lipid panel in a.m.. PT OT speech eval. Fall precautions. Permissive hypertension for the next 24-48 hours unless end-organ damage evidence. Will hold metoprolol for now. MRI, ultrasound carotid arteries and echocardiogram bubble study scheduled in a.m.. Active Problems: Irritable bowel syndrome with diarrhea Continue Bentyl Essential tremor Hypertension Holding metoprolol for now. Will allow permissive hypertension for the next 12- 48 hours. Atrial fibrillation (CMS/HCC) (HCC) On Eliquis oral anticoagulation which is on hold for the next 4 days. Holding metoprolol for permissive hypertension. Continue flecainide. Abdominal pain, generalized Recent admission for small-bowel intussusception. Symptoms overall are improving. Continue with Bentyl as needed. Bipolar affect, depressed (CMS/HCC) (HCC) Continue Lexapro Principal Problem: Cerebrovascular accident (CVA) due to embolism of precerebral artery (CMS/HCC) (HCC) Active Problems: Irritable bowel syndrome with diarrhea Essential tremor Hypertension Atrial fibrillation (CMS/HCC) (HCC) Abdominal pain, generalized Bipolar affect, depressed (CMS/HCC) (HCC) Full Code Expected LOS: Present midnights MDM: High complexity [place] Huertas MD Internal Medicine - Hospitalist [facility] - Adult Hospitalist Service CC: Parmjit Dai MD TIFICATION TECHNICIAN TIFICATION TECHNICIAN documented in this encounter Consult Notes * Sheridan Davenport - 08/12/2021 11:11 AM CSTAssociated Order(s): IP CONSULT TO NUTRITION SERVICES Nutrition Assessment Reason for Assessment: Consult/Referral and Diet Education Encounter Date: 08/12/21 11:11 AM Nutrition Assessment and Plan: Patient is a 51 y.o. female. Admit Dx: CEREBROVASCULAR ACCIDENT (CVA) DUE TO EMBOLISM OF PRECEREBRAL ARTERY (CMS/HCC) (HCC) (PRIMARY ENCOUNTER DIAGNOSIS). Admitted on 08/11/2021, current LOS is 1 days. Adult Malnutrition Scoring Tool (MST) Have You Recently Lost Weight Without Trying?: No Have you been eating poorly because of a decreased appetite?: No Malnutrition Screening Tool (MST) Score: 0 Current diet order: Adult Diet Restricted; Low Fat, Low Chol, Low Na Pt intake is inconsistent. PO intakes: no intakes yet Supplement Order: N/A ASSESSMENT: Nutrition education for stroke. Pt says she has IBS and cyclic vomiting as well. Nutrition education given for low sodium diet. Pt verbalizes understanding. Printed materials given. Continue to monitor. Nutrition Diagnosis 1: (STROKE CONSULT) Related to: Chronic illness/injury Evidenced by: Patient interview,Physical finding ?? Interventions: Education, nutrition,Ransom diet preferences within the limits of nutrition care order ?? Monitoring and Evaluation: Discharge plans,Labs,Plan of care,PO intake,Weight changes ?? Goals: Adequate nutrition to meet estimated needs by next assessment ? Wt Readings from Last 10 Encounters: 08/11/21 75.8 kg (167 lb) 08/09/21 67.7 kg (149 lb 4.8 oz) 01/25/20 62.1 kg (137 lb) 10/12/18 56.5 kg (124 lb 9.6 oz) 05/21/18 59.8 kg (131 lb 12.8 oz) 02/23/18 65.2 kg (143 lb 12.8 oz) Estimated needs: ?? Total Kcal/kg Estimated Needs : 1893.78 based on Kcal/k. Type of Weight Used for Estimated Kcals: Current ?? MS Total Energy Needs: 1779.36 kcal using Stress Factor: 1.2 Activity Factor: 1.1 ?? [place] Total Energy Needs + Fever Factor: 1779.36 ?? Total Protein Estimated Needs (gm): 75.75 Protein Needs Based on g/k.0 Type of Weight Used for Estimated Protein : Current. ?? Total Fluid Estimated Needs: 1892.78 Fluid Needs Based on : 1 ml/kcal. Objective Anthropometrics Weight: 75.8 kg (167 lb) Admission Weight : 75.8 kg Weight Change: 2.72 kg (6.00 lbs) IBW/kg (Calculated) : 54.4 kg Height: 162.6 cm (5' 4 ) Weight in (lb) to have BMI = 25: 145.3 BMI (Calculated): 28.7 BMI Classification: BMI 25.0 - 29.9 Overweight 3 Day I/O Summary 08/10 1900 - 08/12 0659 In: 1952.1 [I.V.:1952.1] Out: 200 [Urine:200] Temp: 36.1 ??C (96.9 ??F) Past Medical History: Diagnosis Date ??? Anxiety ??? Arthritis ??? Bipolar affect, depressed (CMS/HCC) (HCC) ??? Cyclic vomiting syndrome ??? Depression ??? Headache, tension-type ??? Hypertension ??? Migraine ??? Stroke (CMS/HCC) (HCC) ??? Weight loss Medications and Lab Review: Scheduled Meds: [Held by Provider] apixaban, 5 mg, oral, BID aspirin, 325 mg, oral, Daily Or aspirin, 300 mg, rectal, Daily atorvastatin, 40 mg, oral, Daily citalopram, 10 mg, oral, Daily dicyclomine, 20 mg, oral, BID flecainide, 50 mg, oral, BID metoclopramide, 10 mg, oral, TID AC [Held by Provider] metoprolol XL, 25 mg, oral, Daily pantoprazole DR, 40 mg, oral, Q12H Continuous Infusions: sodium chloride 0.9%, 125 mL/hr, Last Rate: 125 mL/hr (08/12/21 0305) Sodium Date Value Ref Range Status 08/12/2021 144 135 - 145 mmol/L Final Potassium, pl Date Value Ref Range Status 08/12/2021 3.1 (L) 3.3 - 4.9 mmol/L Final BUN Date Value Ref Range Status 08/12/2021 12 8 - 25 mg/dL Final Creatinine Date Value Ref Range Status 08/12/2021 0.52 (L) 0.60 - 1.10 mg/dL Final Phosphorus, pl Date Value Ref Range Status 08/12/2021 3.1 2.3 - 4.5 mg/dL Final Albumin Date Value Ref Range Status 08/11/2021 4.4 3.5 - 5.0 g/dL Final Magnesium Date Value Ref Range Status 08/12/2021 1.7 1.4 - 2.5 mg/dL Final Calcium Date Value Ref Range Status 08/12/2021 8.6 8.5 - 10.3 mg/dL Final HDL Date Value Ref Range Status 08/12/2021 55 >=40 mg/dL Final Comment: Interpretive Data Ages < or = 19 years Acceptable: >45 mg/dL Borderline low: 40-45 mg/dL Low: <40 mg/dL Ages > or = 20 years Desirable: >or= 60 mg/dL Low: <40 mg/dL Literature References: 1. Expert Panel on Integrated Guidelines for Cardiovascular Health and Risk Reduction in Children and Adolescents. Pediatrics 2011;128:S213 2. NCEP Expert Panel. Circulation 2004;110:227 Current Interpretive Data was last revised on 2018. Lab Results Component Value Date HGBA1C 5.0 08/12/2021 POC Glucose: Results for SARAHY MAYS ( ) as of 08/12/2021 11:13 Ref. Range 08/09/2021 06:48 08/10/2021 08:20 08/11/2021 10:03 08/11/2021 10:10 08/12/2021 03:11 Glucose Latest Ref Range: 70 - 199 mg/dL 103 93 123 91 Glucose, POC Latest Ref Range: 71 - 98 mg/dL 117 (H) Nursing Assessment: Last BM Date: 08/11/21 Bowel Sounds (All Quadrants): Active,Passing flatus Hansel Scale Score: 21 Skin Integrity: Bruising Nutrition Follow-Up : 08/16/21 Sheridan Davenport, MS RD LDN TIFICATION TECHNICIAN documented in this encounter Nursing Notes * Monique Anthony RN - 08/11/2021 1:10 PM CST 1310 Pt to room per stretcher from ED. Oriented to room, call system, safety precautions and plan of care. 1345 Assessment complete. Discussed plan of care. Questions answered. TIFICATION TECHNICIAN TIFICATION TECHNICIAN documented in this encounter ED Notes * Juice Pineda MD - 08/11/2021 10:13 AM CSTAssociated Order(s): ECG 12 lead Chief Complaint Patient presents with ??? Tingling HPI 08/11/2021 10:13 AM Sarahy Mays is a 51 y.o. female former smoker with a h/o A-fib on Eliquis, cyclic vomiting, small bowel intussusception, IBS, anxiety, and bipolar disorder, s/p cholecystectomy and hernia repair, who presents to the ED with left-sided facial droop since yesterday at 7 PM. Associated symptoms include speech difficulty and generalized tremors. She states that these symptoms have improved since last night, but are still present. Additionally, she reports decreased appetite, nausea, and mild,intermittent abdominal cramping, which have been improving since she was recently admitted to this facility for small bowel intussusception. She reports taking Eliquis as prescribed. She denies vomiting, chest pain, and SOB. No other complaints at this time. Per chart review: Patient was admitted to this facility 08/09/21-08/10/21 for small bowel intussusception. Repeat CT showed resolution of intussusception. Treated with Reglan, Zofran, IV fluids. Past Medical History: Diagnosis Date ??? Anxiety [...] Systems Review of Systems Constitutional: Positive for appetite change (decreased). Negative for chills and fever. HENT: Negative for congestion, rhinorrhea and sore throat. Eyes: Negative for pain and redness. Respiratory: Negative for cough and shortness of breath. Cardiovascular: Negative for chest pain and leg swelling. Gastrointestinal: Positive for nausea. Negative for abdominal pain, diarrhea and vomiting. Genitourinary: Negative for difficulty urinating and dysuria. Musculoskeletal: Negative for arthralgias and myalgias. Skin: Negative for rash and wound. Neurological: Positive for tremors (generalized), facial asymmetry (left-sided facial droop) and speech difficulty. Negative for dizziness and headaches. Psychiatric/Behavioral: Negative for behavioral problems. Physical Exam ED Triage Vitals Temp Pulse Resp BP SpO2 08/11/21 1029 08/11/21 1017 08/11/21 1017 08/11/21 1002 08/11/21 1017 36.8 ??C (98.2 ??F) 67 18 (!) 143/107 99 % Temp src Heart Rate Source Patient Position BP Location FiO2 (%) 08/11/21 1029 -- -- -- -- Oral Physical Exam Vitals and nursing note reviewed. HENT: Head: Normocephalic and atraumatic. Comments: Decreased sensation to left facial area. Mouth/Throat: Comments: Slight mouth droop on the left side. Eyes: Extraocular Movements: Extraocular movements intact. Conjunctiva/sclera: [...] and dry. Neurological: Mental Status: She is alert and oriented to person, place, and time. Comments: No motor deficits. Slight mouth droop on the left side. Decreased sensation to left face and left leg. Normal [id number]. Normal speech. Normal comprehension. ECG 12 lead Date/Time: 08/11/2021 10:23 AM Performed by: Juice Pineda MD Authorized by: Juice Pineda MD Rate: ECG rate: 69 ECG rate assessment: normal Rhythm: Rhythm: sinus rhythm Ectopy: Ectopy comment: PACs Interpretation: Interpretation comment: Nothing acute Labs Reviewed CBC WITH AUTO DIFFERENTIAL - Abnormal Result Value WBC 7.8 Hgb 11.4 (*) Hct 35.8 Plt 330 MPV 10.1 RBC 4.04 MCV 88.6 MCH 28.2 MCHC 31.8 (*) RDW CV 15.3 (*) RDW SD 49.5 (*) NRBC abs 0.00 Narrative: Potential Stroke Patient PROTIME-INR - Abnormal PT 18.6 (*) INR 1.7 (*) Narrative: Potential stroke patient. APTT - Abnormal aPTT 41 (*) Narrative: Potential stroke patient. POCT GLUCOSE DEVICE - Abnormal Glucose, POC 117 (*) BASIC METABOLIC PANEL Sodium 140 Potassium, pl 3.3 Chloride 103 CO2 27 Anion gap 10 BUN 12 Creatinine 0.71 Glucose 123 Calcium 9.1 Narrative: Potential Stroke patient. TROPONIN T HIGH-SENSITIVITY SERIES (BASELINE, 2HR, 4HR, 6HR) Trop T hs <6 HEPATIC FUNCTION PANEL Bilirubin, total 0.2 Bilirubin, direct <0.2 Protein, pl 7.5 Albumin 4.4 Alk phos 83 ALT 12 AST 23 DIFFERENTIAL AUTO Neutrophil abs 5.4 Imm gran abs 0.0 Lymphocyte abs 1.5 Monocyte abs 0.8 Eosinophil abs 0.0 Basophil abs 0.0 Neutrophil pct 69.4 Imm gran pct 0.3 Lymphocyte pct 19.4 Monocyte pct 10.1 Eosinophil pct 0.4 Basophil pct 0.4 EGFR eGFR 97 TROPONIN T HIGH-SENSITIVITY 2-HOUR TROPONIN T HIGH-SENSITIVITY 4-HR TROPONIN T HIGH-SENSITIVITY 6-HOUR POCT GLUCOSE DEVICE CT Stroke Head WO Contrast Final Result BP 126/70 Pulse 67 Temp 36.8 ??C (98.2 ??F) (Oral) Resp 19 Ht 162.6 cm (5' 4 ) Wt 73 kg (161 lb) SpO2 98% BMI 27.64 kg/m?? MDM Number of Diagnoses or Management Options Amount and/or Complexity of Data Reviewed Clinical lab tests: reviewed and ordered Tests in the radiology section of CPT??: reviewed and ordered Tests in the medicine section of CPT??: ordered and reviewed Independent visualization of images, tracings, or specimens: yes Risk of Complications, Morbidity, and/or Mortality Presenting problems: high Diagnostic procedures: high Management options: high General comments: Patient presents with neurological symptoms since 7:00 p.m. last evening. She hasmouth droop on the left with numbness of the left face and arm. She says she has slurred speech. I do not feel she has slurred speech. NIH stroke scale is 2. CT negative. Will admit for further workup including MRI, carotid ultrasound, echo. Patient Progress Patient progress: stable ED Course as of 08/11/21 1214 Time: 08/11 1028 Comment: Discussed case with [facility] Cede[facility] stroke team, who does not recommend tPA or thrombectomy. By: Kellie Scott Time: 08/11 1039 Comment: Discussed case with Dr. Sanches, Neurology, who agrees to consult. By: Kellie Scott Time: 08/11 1044 Comment: Discussed case with Dr. Pickett, Hospitalist, who accepts the patient for admission. By: Kellie Scott Final diagnoses: Cerebrovascular accident (CVA) due to embolism of precerebral artery (CMS/HCC) (HCC) This note is prepared by Kellie Scott, acting as a scribe for Juice Pineda MD. I electronically signed this note at 12:14 PM on 08/11/2021. I, Juice Pineda MD, have personally performed the services described in the documentation, reviewed the documentation, as recorded by the scribe in my presence, and it accurately and completely records my words and actions. Kellie Scott 08/11/21 1034 Juice Pineda MD 08/11/21 1215 Juice Pineda MD 08/11/21 1221 TIFICATION TECHNICIAN TIFICATION TECHNICIAN * Lauren Hernandez, KIET - 08/11/2021 9:57 AM CST 51 y.o. female pt to ED, reports she was here yesterday, was d/c from here 3pm yesterday. At 7pm last night pts L side of face was drooping, difficulty speaking at that time as well. Drooping to L side of mouth has improved, equal shingle trimmer, pt reports persistent nausea. TIFICATION TECHNICIAN documented in this encounter Miscellaneous Notes * Plan of Care - Teresa Zepeda COTA - 08/13/2021 3:01 PM CST Problem: OT Misc Goal: OT STG - Misc 1 Description: Patient will be independent with UE HEP x 15 reps each to improve lacey UE strength and coordination for improved functional capacity and ADL independence. Outcome: Completed Pt issued and demo'd HEP with Red Theraband Exercises while seated in bed. Pt also educated on importance of returning to home routine and to continue working on strengthening exercises using small dumbbells at home or soup cans to improve functional strength for increased INDEP with ADL and IADL activities. TIFICATION TECHNICIAN * Subjective & Objective - Letha Rose MD - 08/13/2021 9:36 AM IDENTIFICATION TECHNICIAN General Medicine Daily Progress SUBJECTIVE Sarahy A Dellarosa??is a 51 y.o.??female??former smoker??with a h/o A- fib on Eliquis, cyclic vomiting, small bowel??intussusception, IBS, anxiety, and bipolar disorder, s/p cholecystectomy and hernia repair,??who presents to the ED with left-sided facial droop?? Chief complaint of left-sided facial droop, left face tingling, speech difficulty Interval History: Patient states that her appetite is not good. She states that she had only few bites for dinner. She also complains of pain with urination, and abdominal pain. She denies any blood in urine. No catheter placed in recent hospital admission. She also states that she has the tremor in b/l hands and feet. Numbness and tingling in the S 1 dermatone region in b/l feet. Denies any changes in strength. Speech is clear. She is basically back to her baseline. Patient had her MRI and ultrasound of carotid arteries, echo with out any significant finding. Patient to resume Eliquis on August 15. Will continue with aspirin 325. Denies any SOB, headache, vision changes, chest pain OBJECTIVE Vitals: 24hr Min/Max: Temp Min: 36.3 ??C (97.4 ??F) Max: 37.1 ??C (98.7 ??F) Pulse Min: 52 Max: 80 BP Min: 123/72 Max: 136/77 Resp Min: 16 Max: 20 SpO2 Min: 97 % Max: 99 % Most Recent : Vitals: 08/13/21 0732 BP: 136/77 Pulse: 69 Resp: 16 Temp: 36.5 ??C (97.7 ??F) SpO2: 99% I/O last 2 completed shifts: In: 600 [P.O.:600] Out: 750 [Urine:750] I/O this shift: In: 500 [IV Piggyback:500] Out: - Physical Exam: Eyes: EOMI, CANDIDA, sclare non icteric Neck: supple, no nuchal ridigity, no gross carotid bruits appreciated Pharynx: No gross oral lesion, tongue midline, mucosa moist Lungs: good air movement, clear to auscultation Heart: [id number], no significant murmur or gallop Abd: +BS, Tender, Non distended, suprapubic tenderness, negative CVA b/l Lower Ext: No gross edema, pedal artery pulses are palpable bilaterally Neuro: No new deficits appreciated Musculoskeletal: no gross joint erythema, edema, tenderness Skin: No new change Lab/Current Medication Review: Recent Results (from the past 24 hour(s)) Basic metabolic panel Collection Time: 08/13/21 4:50 AM Result Value Ref Range Sodium 141 135 - 145 mmol/L Potassium, pl 2.9 (Critical) 3.3 - 4.9 mmol/L Chloride 105 97 - 110 mmol/L CO2 26 22 - 32 mmol/L Anion gap 10 2 - 15 mmol/L BUN 10 8 - 25 mg/dL Creatinine 0.53 (L) 0.60 - 1.10 mg/dL Glucose 102 70 - 199 mg/dL Calcium 8.9 8.5 - 10.3 mg/dL Magnesium Collection Time: 08/13/21 4:50 AM Result Value Ref Range Magnesium 1.7 1.4 - 2.5 mg/dL Phosphorus Collection Time: 08/13/21 4:50 AM Result Value Ref Range Phosphorus, pl 3.5 2.3 - 4.5 mg/dL CBC with auto differential Collection Time: 08/13/21 4:50 AM Result Value Ref Range WBC 7.0 3.8 - 9.9 K/cumm Hgb 10.1 (L) 11.9 - 15.5 g/dL Hct 31.4 (L) 35.6 - 45.5 % Plt 281 150 - 400 K/cumm MPV 10.8 9.1 - 12.3 fL RBC 3.55 (L) 3.90 - 5.20 M/cumm MCV 88.5 81.3 - 96.4 fL MCH 28.5 27.1 - 33.3 pg MCHC 32.2 (L) 32.3 - 35.7 g/dL RDW CV 15.1 (H) 11.1 - 14.9 % RDW SD 48.9 (H) 35.7 - 48.1 fL NRBC abs 0.00 0.00 - 0.01 K/cumm Differential, auto Collection Time: 08/13/21 4:50 AM Result Value Ref Range Neutrophil abs 4.0 1.7 - 6.5 K/cumm Imm gran abs 0.0 0.0 - 0.1 K/cumm Lymphocyte abs 1.8 0.8 - 3.3 K/cumm Monocyte abs 1.0 (H) 0.2 - 0.8 K/cumm Eosinophil abs 0.1 0.0 - 0.5 K/cumm Basophil abs 0.0 0.0 - 0.1 K/cumm Neutrophil pct 56.8 % Imm gran pct 0.1 % Lymphocyte pct 26.3 % Monocyte pct 14.3 % Eosinophil pct 1.9 % Basophil pct 0.6 % eGFR Collection Time: 08/13/21 4:50 AM Result Value Ref Range eGFR 111 mL/min/1.73 m2 ECG 12 lead Result Date: 08/12/2021 Narrative: Vent Rate: 69 bpm RR Interval: 864 msec OR Interval: 141 msec QRS Duration: 70 msec QT Interval: 392 msec QTC Interval: 411 msec P-R-T [place]: 41 - 41 - 18 degrees SINUS RHYTHM WITH OCCASIONAL SUPRAVENTRICULAR PREMATURE COMPLEXES NONSPECIFIC T-WAVE ABNORMALITY BORDERLINE ECG No change fromprior EKG Electronically Signed By: Arnaldo Yan MD ECG 12 lead Result Date: 08/09/2021 Narrative: Vent Rate: 65 bpm RR Interval: 916 msec OR Interval: 133 msec QRS Duration: 81 msec QT Interval: 425 msec QTC Interval: 437 msec P-R-T [place]: 142 - 173 - 165 degrees SINUS [...] Boone Hernandez M.D. AR: GRAEME Report ID: [id number] Reading Location: [id number] CT Abdomen Pelvis W Contrast Result Date: [...] of the abdominal aorta and branch vessels. MUSCULOS KELETAL: No suspicious abnormality. OTHER: No other abnormality. [...] RT T: 08/08/2021 10:20 PM Report ID: [id number] Reading Location: [id number] MRI Brain WO Contrast Result Date: 08/12/2021 Narrative: EXAM DESCRIPTION: MRI BRAIN WO CONTRAST REASON FOR STUDY: Neuro deficit, acute, stroke suspected left-sided facial droop since Thursday at 7 PM. Associated symptoms include speech difficulty and generalized tremors. She states that these symptoms have improved since last night, but are still present. Additionally, she reports decreased appetite, nausea, and mild, intermittent abdominalcramping, which have been improving since she was recently admitted to this facility for small bowel intussusception TECHNIQUE: Multiplanar imaging includes non-contrasted T1, T2, FLAIR, and diffusion with ADC map sequences. Additional sequence(s) sensitive to blood products. Images stored on PACS.COMPARISON: Head CT 08/11/2021. FINDINGS: CEREBRUM: There is no mass, mass effect or midline shift.No intracranial hemorrhage or blood degradation products. WHITE MATTER: Few small T2/FLAIR hyperintensities affecting the supratentorial white matter are nonspecific and may not be clinically signific ant. Most likely this is on the basis of very mild chronic ischemic microangiopathy. POSTERIOR FOSSA: Unremarkable. There is no cerebellar tonsillar ectopia. DIFFUSION IMAGING: No cytotoxic edema is identified. EXTRAAXIAL SPACES: No mass or fluid collection. BRAIN VOLUME: Age appropriate. No evidence of hydrocephalus. PITUITARY: Unremarkable. VASCULATURE: Flow voids at the skull base are present.ORBITS: Unremarkable. PARANASAL SINUSES AND MASTOIDS: Sinuses and mastoids are clear. OTHER: No other significant finding. IMPRESSION: Mild chronic ischemic microangiopathy. No acute intracranial abnormality or recent infarction. THIS IS AN ELECTRONICALLY VERIFIED FINAL REPORT 08/12/2021 8:53 AM - Electronically signed by Rodri Hayes D.O. : Report ID: [id number] Reading Location: [id number] US Carotids Duplex Bilateral Result Date: 08/12/2021 Narrative: EXAM DESCRIPTION: US CAROTIDS DUPLEX BILATERAL REASON FOR STUDY: Other Cerebral Infarction (Stroke) Stroke, left-sided facial tingling and left extremity weakness since last night. TECHNIQUE: Aj scale, color Doppler and spectral Doppler imaging were performed. Velocity criteria are extrapolated from diameter as defined by the Society of Radiologists in Ultrasound Consensus Conference. All velocity measurements are in cm/sec. COMPARISON: None FINDINGS: Right: Mild intimal thickening. Distal CCA Peak Systolic Velocity: 95.9 Peak ICA Systolic Velocity: 122.8 Peak ICA/CCA Systolic Ratio: 1.3 Vertebral Artery: Antegrade flow. Left: Mild intimal thickening. Distal CCA Peak Systolic Ve locity: 94.2 Peak ICA Systolic Velocity: 106.9 Peak ICA/CCA Systolic Ratio: 1.1 Vertebral Artery: Antegrade flow. IMPRESSION: 1. Velocities correspond to a less than 50% diameter stenosis of the right internal carotid artery. 2. Velocities correspond to a less than 50% diameter stenosis of the leftinternal carotid artery. 3. Antegrade direction of flow of the bilateral vertebral arteries. REFERENCE: Consensus Panel Aj-Scale and Doppler US Criteria for Diagnosis of ICA Stenosis. No stenosis: ICA PSV <125*, 0% plaque, ICA/CCA PSV Ratio <2.0, ICA EDV <40*. <50% stenosis: ICA PSV <125*, <50% plaque, ICA/CCA PSV Ratio <2.0, ICA EDV <40*. 50-69% stenosis: ICA PSV 125-230*, >=50% plaque, ICA/CCA PSV Ratio 2.0-4.0, ICA EDV 40-100*. >=70% but less than near occlusion >230, >=50% plaque, ICA/CAA PSV Ratio >4.0, ICA EDV >100*. *cm/sec Plaque estimate (diameter reduction) with aj-scale and color Doppler US. RSNA 2003 THIS IS AN ELECTRONICALLY VERIFIED FINAL REPORT 08/12/2021 9:24 AM - Electronically signed by Sukhjinder Pastrana M.D. JR: Report ID: [id number] Reading Location: [place] [id number] CT Stroke Head WO Contrast Result Date: 08/11/2021 Narrative: EXAM DESCRIPTION: CT STROKE HEAD WO CONTRAST REASON FOR STUDY: Neuro deficit, acute, stroke suspected, Stroke Left sided facial tingling and left extremity weakness started around 7 pm last night. TECHNIQUE: Axial images acquired through the brain without intravenous contrast. Images stored on PACS. Automated exposure control was used as a dose optimization technique for this examination. COMPARISON: No prior. FINDINGS: BRAIN: There are no extra-axial fluid collections. No evidence of hemorrhage. Aj-white matter differentiation is normal. Ventricles and sulci are consistent with age. No shift of midline structures or of mass effect. EXTRA-AXIAL SPACES: No fluid collections. No m asses. CALVARIUM: No fracture. SINUSES/MASTOIDS: No fluid or mucosal thickening. ORBITS: No significant abnormality. OTHER: No other significant abnormality. IMPRESSION: 1. No acute intracranial findings. 2. Findings called by the operation support center at 10:15 a.m. 08/11/2021. THIS IS AN ELECTRONICALLY VERIFIED FINAL REPORT 08/11/2021 10:15 AM - Electronically signed by Say Ford M.D. MJ: KIA Report ID: [id number] Reading Location: [id number] TRANSTHORACIC ECHO (TTE) W BUBBLE STUDY Result Date: 08/12/2021 Narrative: [place] [id number] Echocardiogram Report Patient Name: SARAHY MAYS : 1970 Study Date: 2021-08-12 3:14:03 PM Gender: F Tech: DEHORNER Location: [id number] Ref.Provider: NOR[facility] HUERTAS Height(Cm): 164 BSA: 1.76 Weight(Kg): 68 Quality: Adequate Order Provider: NORTH HUERTAS Procedures: Echocardiographic Report: Transthoracic echocardiogram with 2D, M-Mode, and color Doppler examination with saline contrast study. Indications: Transient Ischemic Attack. Measurements: 2D/M Mode Doppler Measurement Value Normal Range Measurement Value Normal Range EF Teich MM 51.3 [ 55.0 - 70.0 ] percent ELAINA Vmax 3.36 [ 2.00 - 4.00 ] cm2 LVIDd MM 4.89 [ 3.90 - 5.30 ] cm AV Mean PG 4 [ 2- 4 ] mmHg LVIDs MM 3.61 [ 2.30 - 3.90 ] cm AV Peak Nahid 1.49 [ 1.00 - 1.70 ] m/s LVPWd MM 1.15 [ 0.60 - 1.00 ] cm AV VTI 35.55 cm IVSd MM 0.90 [ 0.60 - 0.90 ] cm LVOT Diam 2.34 [ 1.70 - 2.10 ] cm LA Dimension MM 3.82 [ 2.70 - 3.80 ] cm LVOT Peak Nahid 1.17 [ 0.70 - 1.10 ] m/s AoR Diam MM 2.92 [ 2.60 - 3.70 ] cm LVOT VTI 22.72 [ 20.00 - 30.00 ] cm ACS MM 2.01 cm MV E Peak Nahid 0.95 [ 0.60 - 1.30 ]m/s MV A Peak Nahid 0.42 [ 1.00 - 1.20 ] m/s MV Mean PG 2 [ <= 5 ] mmHg MV PHT 56 [ 20 - 100 ] msec MVA 3.90 MV Decel Time 194 [ 104 - 258 ] msec PV Peak Nahid 1.17 [ 0.40 - 0.80 ] m/s TR Peak Nahid 3.00 [ 1.00 - 2.80 ] m/s TR Peak PG 36 mmHg RVSP 46.00 [ 10.00 - 36.00 ] mmHg E' 0.11 E/E' 8.65 PAPressure 10.00 [ 10.00 - 36.00 ] mmHg Findings: Atrial Septum: The atrial septum is not well visualized. Saline contrast study performed without evidence of right to left shunt. Left Ventricle: Normal left ventricular systolic function with no focal wall motion abnormalities. Normal left ventricular size. Left ventricular wall thickness upper limits of normal. Normal left ventricular diastolic function. Ejection fraction is visually estimated at 60-70 %. Left Atrium: The left atrium is normal in size. Right Ventricle: Normal right ventricular size. Normal right ventricular systolic function. Right Atrium: The right atrium is normal in size. Aortic Valve: Normal structure of the aortic valve. Mitral Valve: Normal structure of the mitral valve. Pulmonic Valve: Normal structure of the pulmonic valve. Tricuspid Valve: Normal structure of the tricuspid valve. Normal right ventricular systolic pressure. Pericardium: Normal pericardium with no significant pericardial effusion. Aorta: Normal a ortic root. Sinus of Valsalva is normal. Aortic arch is normal. Descending aorta is normal. IVC: Normal size and normal respiratory collapse consistent with normal right atrial pressure (<5 mmHg).Pulmonary Artery: Normal pulmonary artery size. Conclusions: Normal left ventricular systolic function with no focal wall motion abnormalities. Normal left ventricular size. Left ventricular wall thic kness upper limits of normal. Normal left ventricular diastolic function. Ejection fraction is visually estimated at 60-70 %. The atrial septum is not well visualized. Saline contrast study performedwithout evidence of right to left shunt within limitations of poor image quality. Electronically Signed By: Kofi Sheffield MD, [facility] 2021-08-12 18:32:12 IDENTIFICATION TECHNICIAN Current Facility-Administered Medications Medication Dose Route Frequency Provider Last Rate Last Admin ??? [Held by Provider] apixaban (ELIQUIS) tablet 5 mg 5 mg oral BID [place] MD ??? aspirin tablet 325 mg 325 mg oral Daily [place] MD 325 mg at 08/13/21 0838 Or ??? aspirin suppository 300 mg 300 mg rectal Daily [place] MD ??? atorvastatin (LIPITOR) tablet 40 mg 40 mg oral Daily [place] MD 40 mg at 08/12/212013 ??? citalopram (CeleXA) tablet 10 mg 10 mg oral Daily [place] MD 10 mg at 08/13/21 0838 ??? dicyclomine (BENTYL) capsule 20 mg 20 mg oral BID [place] MD 20 mg at 08/13/21 0838 ??? flecainide (TAMBOCOR) tablet 50 mg 50 mg oral BID [place] MD 50 mg at 08/13/21 0838 ??? [Held by Provider] metoprolol XL (TOPROL-XL) extended release tablet 25 mg 25 mg oral Daily [place] MD ??? ondansetron (ZOFRAN) injection 4 mg 4 mg intravenous Q6H PRN [place] MD 4 mg at 08/12/212013 ??? pantoprazole DR (PROTONIX) extended release tablet 40 mg 40 mg oral Q12H [place] MD 40 mg at 08/13/21 0838 ??? potassium chloride 40 mEq/520 mL in sodium chloride 0.9% (premix) 40 mEq 40 mEq intravenous [id number] Wilkins MD 130 mL/hr at 08/13/21 0838 40 mEq at 08/13/21 0838 ??? ramelteon (ROZEREM) tablet 8 mg 8 mg oral Nightly PRN [place] MD 8 mg at 08/12/212013 A/P: MDM Principal Problem: TIA (transient ischemic attack) Active Problems: Hypertension Atrial fibrillation (CMS/HCC) (HCC) Dysuria Irritable bowel syndrome with diarrhea Essential tremor Bipolar affect, depressed (CMS/HCC) (HCC) Abdominal pain, generalized Resolved Problems: No resolved hospital problems. Letha Rose MD Family Medicine PGY-1 [facility] 08/13/2021 9:36 AM TIFICATION TECHNICIAN * Assessment & Plan Note - Letha Rose MD - 08/13/2021 9:32 AM IDENTIFICATION TECHNICIAN Associated Problem(s): Dysuria Pt complains of pain with urination. Pt also complains of suprapubic pain. Plan - Urine analysis TIFICATION TECHNICIAN * Assessment & Plan Note - Letha Rose MD - 08/13/2021 9:30 AM IDENTIFICATION TECHNICIAN Associated Problem(s): Bipolar affect, depressed ([facility]) Currently mood at baseline. Continue home med Celexa TIFICATION TECHNICIAN * Assessment & Plan Note - Letha Rose MD - 08/13/2021 9:30 AM IDENTIFICATION TECHNICIAN Associated Problem(s): Essential tremor B/l hand with tremor - no changes in strength TIFICATION TECHNICIAN * Assessment & Plan Note - Letha Rose MD - 08/13/2021 9:29 AM IDENTIFICATION TECHNICIAN Associated Problem(s): Irritable bowel syndrome with both constipation and diarrhea Currently in no acute exacerbation. -continue Bentyl TIFICATION TECHNICIAN * Assessment & Plan Note - Letha Rose MD - 08/13/2021 9:29 AM IDENTIFICATION TECHNICIAN Associated Problem(s): Atrial fibrillation (CMS/HCC) (HCC) Currently in sinus rhythm. Eliquis on hold will resume on August 15. Continue with flecainide Metoprolol restarted TIFICATION TECHNICIAN * Assessment & Plan Note - Letha Rose MD - 08/13/2021 9:29 AM IDENTIFICATION TECHNICIAN Associated Problem(s): Hypertension Blood pressure has been under control Metoprolol restarted TIFICATION TECHNICIAN * Assessment & Plan Note - Letha Rose MD - 08/13/2021 9:28 AM IDENTIFICATION TECHNICIAN Associated Problem(s): TIA (transient ischemic attack) Sarahy Cardenas Jairo 51-year-old female presenting with left facial droop and left face tingling sensation. Not a tPA candidate. NA score of 2. Has had previous similar event. Currently back to baselinewithout any deficits. CT of head showing no intracranial findings, most likely TIA rather than CVA, due to the findings on the CT and MRI. MRI 08/12: Mild chronic ischemic microangiopathy. No acute intracranial abnormality or recent infarction Echo:Normal left ventricular systolic function with no focal wall motion abnormalities. Normal leftventricular size. Left ventricular wall thickness upper limits of normal. Normal left ventricular diastolic function. Ejection fraction is visually estimated at 60-70 % Ultrasound of carotid arteries: Less than 50% of stenosis. Continue aspirin 325 Continue atorvastatin 40 mg TIFICATION TECHNICIAN * Assessment & Plan Note - Letha Rose MD - 08/12/2021 5:54 PM IDENTIFICATION TECHNICIAN Associated Problem(s): TIA (transient ischemic attack) Sarahy Mays 51-year-old female presenting with left facial droop and left face tingling sensation. Not a tPA candidate. NA score of 2. Has had previous similar event. Currently back to baselinewithout any deficits. CT of head showing no intracranial findings, most likely TIA rather than CVA, due to the findings on the CT and MRI. MRI was done today: Mild chronic ischemic microangiopathy. No acute intracranial abnormality or recent infarction Echo was done pending results Ultrasound of carotid arteries: Less than 50% of stenosis. Continue aspirin 325 Continue atorvastatin 40 mg TIFICATION TECHNICIAN TIFICATION TECHNICIAN * Assessment & Plan Note - Letha Rose MD - 08/12/2021 5:54 PM IDENTIFICATION TECHNICIAN Associated Problem(s): Atrial fibrillation (CMS/HCC) (HCC) Currently in sinus rhythm. Eliquis on hold will resume on August 15. Continue with flecainide Metoprolol on hold will resume tomorrow TIFICATION TECHNICIAN * Assessment & Plan Note - Letha Rose MD - 08/12/2021 5:52 PM IDENTIFICATION TECHNICIAN Associated Problem(s): Bipolar affect, depressed (HCC) Currently mood at baseline. Continue home med Celexa TIFICATION TECHNICIAN TIFICATION TECHNICIAN * Assessment & Plan Note - Letha Rose MD - 08/12/2021 5:48 PM IDENTIFICATION TECHNICIAN Associated Problem(s): Hypertension Blood pressure has been under control Metoprolol has been on hold-to allow for permissive hypertension for the next 24 hours, will restart tomorrow TIFICATION TECHNICIAN * Assessment & Plan Note - Letha Rose MD - 08/12/2021 5:46 PM IDENTIFICATION TECHNICIAN Associated Problem(s): Irritable bowel syndrome with both constipation and diarrhea Currently in no acute exacerbation. -continue Bentyl TIFICATION TECHNICIAN * Subjective & Objective - Letha Rose MD - 08/12/2021 5:39 PM IDENTIFICATION TECHNICIAN General Medicine Daily Progress SUBJECTIVE Sarahy A Dellarosa??is a 51 y.o.??female??former smoker??with a h/o A- fib on Eliquis, cyclic vomiting, small bowel??intussusception, IBS, anxiety, and bipolar disorder, s/p cholecystectomy and hernia repair,??who presents to the ED with left-sided facial droop Chief complaint of left-sided facial droop, left face tingling, speech difficulty Interval History: Patient enjoying breakfast during examination. Speech clear. Believes that she isback to her baseline. Patient denies any numbness or tingling in the left side of the face. Patienthad her MRI and ultrasound of carotid arteries, echo today pending results. Reglan was discontinued. Patient to resume Eliquis on August 15. Will continue with aspirin 325. OBJECTIVE Vitals: 24hr Min/Max: Temp Min: 36.1 ??C (96.9 ??F) Max: 37.1 ??C (98.7 ??F) Pulse Min: 58 Max: 66 BP Min: 120/74 Max: 131/76 Resp Min: 16 Max: 20 SpO2 Min: 98 % Max: 100 % Most Recent : Vitals: 08/12/21 1553 BP: 129/75 Pulse: 61 Resp: 16 Temp: 36.9 ??C (98.5 ??F) SpO2: 99% I/O last 2 completed shifts: In: 1951.1 [I.V.:1951.1] Out: 200 [Urine:200] I/O this shift: In: 600 [P.O.:600] Out: - Physical Exam: General: Awake, alert, oriented x4, in no acute distress Eyes: EOMI, CANDIDA, sclare non icteric Neck: supple, trachea midline, thyroid not enlarged, no gross carotid bruits appreciated Pharynx: No gross oral lesion, tongue midline, mucosa moist Lungs: CTA, no wheezing Heart: Regular rate and rhythm Abd: +BS, Non Tender, Non distended, No gross hepatomegaly Lower Ext: No gross edema Neuro: clear speech , no facial droop observed ,Cranial nerves II-XII grossly intact. Moves all extremities equally, no gross sensory deficits Lab/Current Medication Review: Recent Results (from the past 24 hour(s)) Basic metabolic panel Collection Time: 08/12/21 3:11 AM Result Value Ref Range Sodium 144 135 - 145 mmol/L Potassium, pl 3.1 (L) 3.3 - 4.9 mmol/L Chloride 107 97 - 110 mmol/L CO2 22 22 - 32 mmol/L Anion gap 15 2 - 15 mmol/L BUN 12 8 - 25 mg/dL Creatinine 0.52 (L) 0.60 - 1.10 mg/dL Glucose 91 70 - 199 mg/dL Calcium 8.6 8.5 - 10.3 mg/dL Magnesium Collection Time: 08/12/21 3:11 AM Result Value Ref Range Magnesium 1.7 1.4 - 2.5 mg/dL Phosphorus Collection Time: 08/12/21 3:11 AM Result Value Ref Range Phosphorus, pl 3.1 2.3 - 4.5 mg/dL CBC with auto differential Collection Time: 08/12/21 3:11 AM Result Value Ref Range WBC 8.3 3.8 - 9.9 K/cumm Hgb 9.8 (L) 11.9 - 15.5 g/dL Hct 30.6 (L) 35.6 - 45.5 % Plt 277 150 - 400 K/cumm MPV 11.1 9.1 - 12.3 fL RBC 3.47 (L) 3.90 - 5.20 M/cumm MCV 88.2 81.3 - 96.4 fL MCH 28.2 27.1 - 33.3 pg MCHC 32.0 (L) 32.3 - 35.7 g/dL RDW CV 15.7 (H) 11.1 - 14.9 % RDW SD 49.6 (H) 35.7 - 48.1 fL NRBC abs 0.00 0.00 - 0.01 K/cumm Differential, auto Collection Time: 08/12/21 3:11 AM Result Value Ref Range Neutrophil abs 4.9 1.7 - 6.5 K/cumm Imm gran abs 0.0 0.0 - 0.1 K/cumm Lymphocyte abs 2.2 0.8 - 3.3 K/cumm Monocyte abs 1.1 (H) 0.2 - 0.8 K/cumm Eosinophil abs 0.1 0.0 - 0.5 K/cumm Basophil abs 0.0 0.0 - 0.1 K/cumm Neutrophil pct 58.8 % Imm gran pct 0.2 % Lymphocyte pct 26.0 % Monocyte pct 13.3 % Eosinophil pct 1.2 % Basophil pct 0.5 % eGFR Collection Time: 08/12/21 3:11 AM Result Value Ref Range eGFR 109 mL/min/1.73 m2 Hemoglobin A1c Collection Time: 08/12/21 3:12 AM Result Value Ref Range Hgb A1C 5.0 4.0 - 5.6 % Estimated Average Glucose 97 mg/dL Lipid panel Collection Time: 08/12/21 3:12 AM Result Value Ref Range Cholesterol 192 30 - 199 mg/dL Triglycerides 70 <=149 mg/dL HDL 55 >=40 mg/dL LDL, calculated 123 <=129 mg/dL Non-HDL Cholesterol 137 mg/dL Chol/HDL ratio 3 ECG 12 lead Result Date: 08/12/2021 Narrative: Vent Rate: 69 bpm RR Interval: 864 msec OR Interval: 141 msec QRS Duration: 70 msec QT Interval: 392 msec QTC Interval: 411 msec P-R-T [place]: 41 - 41 - 18 degrees SINUS RHYTHM WITH OCCASIONAL SUPRAVENTRICULAR PREMATURE COMPLEXES NONSPECIFIC T-WAVE ABNORMALITY BORDERLINE ECG No change fromprior EKG Electronically Signed By: Arnaldo Yan MD ECG 12 lead Result Date: 08/09/2021 Narrative: Vent Rate: 65 bpm RR Interval: 916 msec OR Interval: 133 msec QRS Duration: 81 msec QT Interval: 425 msec QTC Interval: 437 msec P-R-T [place]: 142 - 173 - 165 degrees SINUS [...] Boone Hernandez M.D. AR: GRAEME Report ID: [id number] Reading Location: [id number] CT Abdomen Pelvis W Contrast Result Date: [...] La Vega M.D. RT: RT Report ID: [id number] Reading Location: [place] [address] MRI Brain WO Contrast Result Date: 08/12/2021 Narrative: EXAM DESCRIPTION: MRI BRAIN WO CONTRAST REASON FOR STUDY: Neuro deficit, acute, stroke suspected left-sided facial droop since Thursday at 7 PM. Associated symptoms include speech difficulty and generalized tremors. She states that these symptoms have improved since last night, but are still present. Additionally, she reports decreased appetite, nausea, and mild, intermittent abdominalcramping, which have been improving since she was recently admitted to this facility for small bowel intussusception TECHNIQUE: Multiplanar imaging includes non-contrasted T1, T2, FLAIR, and diffusion with ADC map sequences. Additional sequence(s) sensitive to blood products. Images stored on PACS.COMPARISON: Head CT 08/11/2021. FINDINGS: CEREBRUM: There is no mass, mass effect or midline shift.No intracranial hemorrhage or blood degradation products. WHITE MATTER: Few small T2/FLAIR hyperintensities affecting the supratentorial white matter are nonspecific and may not be clinically signific ant. Most likely this is on the basis of very mild chronic ischemic microangiopathy. POSTERIOR FOSSA: Unremarkable. There is no cerebellar tonsillar ectopia. DIFFUSION IMAGING: No cytotoxic edema is identified. EXTRAAXIAL SPACES: No mass or fluid collection. BRAIN VOLUME: Age appropriate. No evidence of hydrocephalus. PITUITARY: Unremarkable. VASCULATURE: Flow voids at the skull base are present.ORBITS: Unremarkable. PARANASAL SINUSES AND MASTOIDS: Sinuses and mastoids are clear. OTHER: No other significant finding. IMPRESSION: Mild chronic ischemic microangiopathy. No acute intracranial abnormality or recent infarction. THIS IS AN ELECTRONICALLY VERIFIED FINAL REPORT 08/12/2021 8:53 AM - Electronically signed by Rodri Hayes D.O. : Report ID: [id number] Reading Location: [id number] US Carotids Duplex Bilateral Result Date: 08/12/2021 Narrative: EXAM DESCRIPTION: US CAROTIDS DUPLEX BILATERAL REASON FOR STUDY: Other Cerebral Infarction (Stroke) Stroke, left-sided facial tingling and left extremity weakness since last night. TECHNIQUE: Aj scale, color Doppler and spectral Doppler imaging were performed. Velocity criteria are extrapolated from diameter as defined by the Society of Radiologists in Ultrasound Consensus Conference. All velocity measurements are in cm/sec. COMPARISON: None FINDINGS: Right: Mild intimal thickening. Distal CCA Peak Systolic Velocity: 95.9 Peak ICA Systolic Velocity: 122.8 Peak ICA/CCA Systolic Ratio: 1.3 Vertebral Artery: Antegrade flow. Left: Mild intimal thickening. Distal CCA Peak Systolic Ve locity: 94.2 Peak ICA Systolic Velocity: 106.9 Peak ICA/CCA Systolic Ratio: 1.1 Vertebral Artery: Antegrade flow. IMPRESSION: 1. Velocities correspond to a less than 50% diameter stenosis of the right internal carotid artery. 2. Velocities correspond to a less than 50% diameter stenosis of the leftinternal carotid artery. 3. Antegrade direction of flow of the bilateral vertebral arteries. REFERENCE: Consensus Panel Aj-Scale and Doppler US Criteria for Diagnosis of ICA Stenosis. No stenosis: ICA PSV <125*, 0% plaque, ICA/CCA PSV Ratio <2.0, ICA EDV <40*. <50% stenosis: ICA PSV <125*, <50% plaque, ICA/CCA PSV Ratio <2.0, ICA EDV <40*. 50-69% stenosis: ICA PSV 125-230*, >=50% plaque, ICA/CCA PSV Ratio 2.0-4.0, ICA EDV 40-100*. >=70% but less than near occlusion >230, >=50% plaque, ICA/CAA PSV Ratio >4.0, ICA EDV >100*. *cm/sec Plaque estimate (diameter reduction) with aj-scale and color Doppler US. RSNA 2002 THIS IS AN ELECTRONICALLY VERIFIED FINAL REPORT 08/12/2021 9:24 AM - Electronically signed by Sukhjinder Pastrana M.D. JR: Report ID: [id number] Reading Location: [id number] CT Stroke Head WO Contrast Result Date: 08/11/2021 Narrative: EXAM DESCRIPTION: CT STROKE HEAD WO CONTRAST REASON FOR STUDY: Neuro deficit, acute, stroke suspected, Stroke Left sided facial tingling and left extremity weakness started around 7 pm last night. TECHNIQUE: Axial images acquired through the brain without intravenous contrast. Images stored on PACS. Automated exposure control was used as a dose optimization technique for this examination. COMPARISON: No prior. FINDINGS: BRAIN: There are no extra-axial fluid collections. No evidence of hemorrhage. Aj-white matter differentiation is normal. Ventricles and sulci are consistent with age. No shift of midline structures or of mass effect. EXTRA-AXIAL SPACES: No fluid collections. No masses. CALVARIUM: No fracture. SINUSES/MASTOIDS: No fluid or mucosal thickening. ORBITS: No significant abnormality. OTHER: No other significant abnormality. IMPRESSION: 1. No acute intracranial findings. 2. Findings called by the operation support center at 10:15 a.m. 08/11/2021. THIS IS AN ELECTR ONICALLY VERIFIED FINAL REPORT 08/11/2021 10:15 AM - Electronically signed by Say Ford M.D. MJ: KIA Report ID: [id number] Reading Location: [id number] Current Facility-Administered Medications Medication Dose Route Frequency Provider Last Rate Last Admin ??? [Held by Provider] apixaban (ELIQUIS) tablet 5 mg 5 mg oral BID [place] MD ??? aspirin tablet 325 mg 325 mg oral Daily [place] MD 325 mg at 08/12/21 0937 Or ??? aspirin suppository 300 mg 300 mg rectal Daily [place] MD ??? atorvastatin (LIPITOR) tablet 40 mg 40 mg oral Daily [place] MD 40 mg at 08/11/216 ??? citalopram (CeleXA) tablet 10 mg 10 mg oral Daily [place] MD 10 mg at 08/12/21 0938 ??? dicyclomine (BENTYL) capsule 20 mg 20 mg oral BID [place] MD 20 mg at 08/12/21936 ??? flecainide (TAMBOCOR) tablet 50 mg 50 mg oral BID [place] MD 50 mg at 08/12/21 0938 ??? [Held by Provider] metoprolol XL (TOPROL-XL) extended release tablet 25 mg 25 mg oral Daily [place] MD ??? ondansetron (ZOFRAN) injection 4 mg 4 mg intravenous Q6H PRN [place] MD 4 mg at 08/12/21 0720 ??? pantoprazole DR (PROTONIX) extended release tablet 40 mg 40 mg oral Q12H [place] MD 40 mg at 08/12/21936 A/P: MDM Principal Problem: Cerebrovascular accident (CVA) due to embolism of precerebral artery (CMS/HCC) (HCC) Active Problems: Irritable bowel syndrome with diarrhea Essential tremor Hypertension Atrial fibrillation (CMS/HCC) (HCC) Abdominal pain, generalized Bipolar affect, depressed (CMS/HCC) (HCC) Resolved Problems: No resolved hospital problems. Letha Rose MD Family Medicine PGY-1 [facility] 08/12/2021 5:39 PM TIFICATION TECHNICIAN * Plan of Care - Kassidy Vo RN - 08/12/2021 5:36 AM CST Goals: Clinical Goals for the Shift: Patient will have stable neurological status, vitals and labs, remainfree from injury/fall Summary: Patient medicated for nausea once, c/o feeling intermittently shaky. No facial droop. Vitals stable. Problem: Health Behavior: Goal: Understanding of discharge [...] and injury in home environment Outcome: Progressing Problem: Activity: Goal: Ability to perform activities of daily living will be supported Outcome: Progressing Problem: Lack of Knowledge: Goal: Knowledge of disease or condition will improve Outcome: Progressing Goal: Understanding of discharge needs will improve Outcome: Progressing Problem: Coping: Goal: Level of anxiety will decrease Outcome: Progressing Problem: Nutritional: Goal: Maintenance of adequate nutrition will improve Description: AHA recommends a diet rich in fruits and vegatables, low-fat dairy and restricted saltintake to aid with blood pressure reduction Outcome: Progressing Problem: Physical Regulation: Goal: Complications related to the disease process, condition or treatment will be avoided or minimized Outcome: Progressing Problem: Safety: Goal: Will remain free from injury Outcome: Progressing TIFICATION TECHNICIAN * Plan of Care - Monique Anthony RN - 08/11/2021 4:59 PM CST Problem: Health Behavior: Goal: Understanding [...] and injury in home environment Outcome: Progressing Problem: Activity: Goal: Ability to perform activities of daily living will be supported Outcome: Progressing Problem: Lack of Knowledge: Goal: Knowledge of disease or condition will improve Outcome: Progressing Goal: Understanding of discharge needs will improve Outcome: Progressing Problem: Coping: Goal: Level of anxiety will decrease Outcome: Progressing Problem: Nutritional: Goal: Maintenance of adequate nutrition will improve Description: AHA recommends a diet rich in fruits and vegatables, low-fat dairy and restricted saltintake to aid with blood pressure reduction Outcome: Progressing Problem: Physical Regulation: Goal: Complications related to the disease process, condition or treatment will be avoided or minimized Outcome: Progressing Problem: Safety: Goal: Will remain free from injury Outcome: Progressing Goals: Hemodynamic stability, no neuro deficits, comfort/safety Summary: goals initiated TIFICATION TECHNICIAN * ED Procedure Note - Juice Pineda MD - 08/11/2021 12:20 PM CSTAssociated Order(s): Critical Care Procedure Critical Care Performed by: Juice Pineda MD Authorized by: Juice Pineda MD Critical care provider statement: As reflected in the history, physical exam, orders, notes, and/or MDM, I was personally present while the patient was critically ill and provided critical care services for approximately 45 minutes, excluding time involved in separately billable procedures. Critical care was necessary to treat or prevent imminent or life-threatening deterioration of the following condition(s): acute cerebrovascular accident (CVA) Critical care was time spent by me providing the following: decision regarding acute lytic therapy and initiation of stroke management I provided emergent necessary critical care medicine services to this patient. I ordered and reviewed test results and/or imaging studies. I spent time discussing the management of this critically ill patient with consultants and the medical staff. Juice Pineda MD 08/11/21 1220 Juice Pineda MD 08/11/21 1220 TIFICATION TECHNICIAN TIFICATION TECHNICIAN * Telestroke - Ned Stratton MD - 08/11/2021 10:30 AM [facility] Telestroke Consultation Note Patient Name: Sarahy Mays Date of : 1970 Date of Service: 08/11/2021 Telestroke Documentation Consult Start Time: 1022 Consult Stop Time: 1029 Consult Time Calculation (min): 7 min Video Used? : No Reminded Originating Hosp to Document use of Video: No Imaging Reviewed?: Yes (08/11/21 1028) Subjective HPI: Patient is a 51 y.o. female presenting with L facial droop and L face and left leg tingling sensation. Onset was 7pm. Unclear what she was doing at the time when it occurred. She is a former smoker, on eliquis for pafib and was just discharged from the hospital for small bowel intussuception. No headache or left arm involvement. Last known well Onset of Symptoms - Date: 08/10/21 Onset of Symptoms - Time: 1900 (08/11/21 1025) PMH/Vascular Risk Factors: Atrial Fibrillation, (Not in a hospital admission) No current facility-administered medications for this encounter. Current Outpatient Medications Medication Sig Dispense Refill ??? apixaban (ELIQUIS) 5 mg tablet Take 5 mg by mouth 2 (two) times a day ??? dicyclomine (BENTYL) 10 mg capsule Take 20 mg by mouth 2 (two) times a day ??? flecainide (TAMBOCOR) 50 mg tablet Take 50 mg by mouth 2 (two) times a day ??? metoclopramide (REGLAN) 10 mg tablet Take 1 tablet (10 mg total) by mouth 3 (three) times a daybefore meals 90 tablet 0 ??? metoprolol XL (TOPROL-XL) 25 mg extended release tablet Take 25 mg by mouth daily ??? ondansetron (ZOFRAN) 4 mg tablet Take 1 tablet (4 mg total) by mouth every 6 (six) hours 12 tablet 0 ??? ondansetron (ZOFRAN) 4 mg tablet Take 1 tablet (4 mg total) by mouth every 8 (eight) hours as needed for nausea or vomiting 30 tablet 0 ??? pantoprazole DR (PROTONIX) 40 mg EC tablet Take 40 mg by mouth every 12 (twelve) hours ??? SUMAtriptan (IMITREX) 50 mg tablet Take 50 mg by mouth once as needed for migraine. May repeat dose once in 2 hours if no relief. Do not exceed 2 doses in 24 hours. Objective Vitals: Patient Vital Signs for the past 24 hrs: BP Temp Temp src Pulse Resp SpO2 Height Weight 08/11/21 1029 -- 36.8 ??C (98.2 ??F) Oral -- -- -- -- -- 08/11/21 1017 126/77 -- -- 67 18 99 % 162.6 cm (5' 4 ) 73 kg (161 lb) 08/11/21 1002 (!) 143/107 -- -- -- -- -- -- -- NIHSS: NIH Stroke Scale Level of Consciousness (1a.): Alert, keenly responsive LOC Questions (1b.): Answers both questions correctly LOC Commands (1c.): Performs both tasks correctly Best Gaze (2.): Normal Visual (3.): No visual loss Facial Palsy (4.): Minor paralysis Motor Arm, Left (5a.): No drift Motor Arm, Right (5b.): No drift Motor Leg, Left (6a.): No drift Motor Leg, Right (6b.): No drift Limb Ataxia (7.): Absent Sensory (8.): Rirc-sd-rnzmizxa sensory loss, patient feels pinprick is less sharp or is dull on theaffected side, or there is a loss of superficial pain with pinprick, but patient is aware of being touched Best Language (9.): No aphasia Dysarthria (10.): Normal Extinction and Inattention (11.) (Formerly Neglect): No abnormality Total: 2 (08/11/21 1020) Other exam findings Imaging Interpretation: no acute intracrainal abnl. CT Head preliminary read for lytic treatment (Read to Treat)? N/A Labs: Lab Results Lab Value Date/Time GLUCOSE 117 (H) 08/11/2021 1003 GLUCOSE 93 08/10/2021 0820 PT 18.6 (H) 08/11/2021 1010 INR 1.7 (H) 08/11/2021 1010 Hematology Lab History Some values may be hidden. Unless noted otherwise, only the newest values recorded on each date aredisplayed. Labs - Hematology Latest Ref Range 08/08/21 08/11/21 WBC 3.8 - 9.9 K/cumm 10.0 (A) 7.8 Total Hb, POC 11.9 - 15.5 g/dL 11.1 (A) 11.4 (A) Hct 35.6 - 45.5 % 35.1 (A) 35.8 Plt 150 - 400 K/cumm 328 330 Neutrophil abs 1.7 - 6.5 K/cumm 8.4 (A) 5.4 Lymphocytes, abs 0.8 - 3.3 K/cumm 0.9 1.5 (A) Abnormal value Other notable labs: Medical Decision Making: Recommendations t-PA Recommended: No Patient was evaluated but ineligible for IV thrombolysis for the following reason(s): Mild, non-disabling stroke symptoms,Unable to administer tPA by 4.5 hr from last known well Thrombectomy Decision: No Thrombectomy Exclusion Criteria: NIHSS < 6 between 0-16 hours, or NIHSS < 10 between 16 and 24 hours (08/11/21 1028) Assessment/Plan: Ms. Mays presenting with L facial droop and L face and leg tingling sensation. Not an acute TPA or thrombectomy candidate. Agree with admission for further observation and management. Agree with Aspirin 325mg or 300mg suppository if not given already Allow for permissive hypertension, allowing BP up to 220/120. Can benefit from a brain MRI For stroke risk evaluation, please obtain A1c, LDL. Carotid imaging (ultrasound or CTA) Will also benefit from high intensity statin such as Lipitor 40-80mg or crestor 20mg, regardless ofLDL. In the setting of a small/mild stroke, can stop anticoagulation and resume in 4 days from last known well. In the mean time, she should be on ASA 325mg daily. Total time spent coordinating care 15 minutes. Ned Stratton MD [facility] [employer] Telestroke Service TIFICATION TECHNICIAN documented in this encounter Plan of Treatment Upcoming Encounters Date Type Department Care Team (Latest Contact Info) Description 09/07/2024 8:30 AM IDENTIFICATION TECHNICIAN Hospital Encounter [facility] [address] [place] [phone] Forest Catherine MD [address] [address] 09/07/2024 8:30 AM IDENTIFICATION TECHNICIAN - 09/07/2024 9:00 AM IDENTIFICATION TECHNICIAN Surgery [facility] [address] [place] [phone] Forest Catherine MD [address] [address] EGD w/Endo Flip & YI placement Scheduled Procedures Name Priority Associated Diagnoses Date/Ti me ESOPHAGOGASTRODUODENOSCOPY Hiatal hernia Gastroesophageal reflux disease, unspecified whether esophagitis present 09/07/2024 8:30 AM IDENTIFICATION TECHNICIAN documented as of this encounter Procedures Procedure Name Priority Date/Time Associated Diagnosis Comments EGFR Routine 08/13/2021 12:09 PM IDENTIFICATION TECHNICIAN BASIC METABOLIC PANEL Routine 08/13/2021 12:09 PM IDENTIFICATION TECHNICIAN URINALYSIS AND REFLEX TO MICROSCOPIC AND CULTURE Routine 08/13/2021 8:47 AM IDENTIFICATION TECHNICIAN URINALYSIS, MICROSCOPIC ONLY Routine 08/13/2021 8:47 AM IDENTIFICATION TECHNICIAN URINE CULTURE Routine 08/13/2021 8:47 AM IDENTIFICATION TECHNICIAN EGFR Routine 08/13/2021 4:50 AM IDENTIFICATION TECHNICIAN DIFFERENTIAL AUTO Routine 08/13/2021 4:5 0 AM IDENTIFICATION TECHNICIAN CBC WITH AUTO DIFFERENTIAL Routine 08/13/2021 4:50 AM IDENTIFICATION TECHNICIAN PHOSPHORUS Routine 08/13/2021 4:50 AM IDENTIFICATION TECHNICIAN MAGNESIUM Routine 08/13/2021 4:50 AM IDENTIFICATION TECHNICIAN BASIC METABOLIC PANEL Routine 08/13/2021 4:50 AM IDENTIFICATION TECHNICIAN TRANSTHORACIC ECHO (TTE) COMPLETE W DOPPLER/CF WO CONTRAST W BUBBLE STAT 08/12/2021 3:45 PM IDENTIFICATION TECHNICIAN US CAROTIDS DUPLEX BILATERAL ED 08/12/2021 9:12 AM IDENTIFICATION TECHNICIAN MRI BRAIN WO CONTRAST ED 08/12/2021 8:43 AM IDENTIFICATION TECHNICIAN HEMOGLOBIN A1C Routine 08/12/2021 3:12 AM IDENTIFICATION TECHNICIAN LIPID PANEL Routine 08/12/2021 3:12 AM IDENTIFICATION TECHNICIAN EGFR Routine 08/12/2021 3:11 AM IDENTIFICATION TECHNICIAN DIFFERENTIAL AUTO Routine 08/12/2021 3:1 1 AM IDENTIFICATION TECHNICIAN CBC WITH AUTO DIFFERENTIAL Routine 08/12/2021 3:11 AM IDENTIFICATION TECHNICIAN PHOSPHORUS Routine 08/12/2021 3:11 AM IDENTIFICATION TECHNICIAN MAGNESIUM Routine 08/12/2021 3:11 AM IDENTIFICATION TECHNICIAN BASIC METABOLIC PANEL Routine 08/12/2021 3:11 AM IDENTIFICATION TECHNICIAN OR CRITICAL CARE ILL/INJURED PATIENT INIT 30-74 MIN Routine 08/11/2021 12:20 PM IDENTIFICATION TECHNICIAN ECG 12-LEAD STAT 08/11/2021 10:[address] STROKE PROTOCOL WO CONTRAST Critical/Life-T hreatening 08/11/2021 10:11 AM IDENTIFICATION TECHNICIAN TROPONIN T HIGH-SENSITIVITY SERIES (BASELINE, 2HR, 4HR, 6HR) STAT 08/11/2021 10:10 AM IDENTIFICATION TECHNICIAN EGFR STAT 08/11/2021 10:10 AM IDENTIFICATION TECHNICIAN DIFFERENTIAL AUTO STAT 08/11/2021 10: 10 AM IDENTIFICATION TECHNICIAN CBC WITH AUTO DIFFERENTIAL STAT 08/11/2021 10:10 AM IDENTIFICATION TECHNICIAN APTT STAT 08/11/2021 10:10 AM IDENTIFICATION TECHNICIAN PROTIME-INR STAT 08/11/2021 10:10 AM IDENTIFICATION TECHNICIAN HEPATIC FUNCTION PANEL STAT 08/11/2021 10:10 AM IDENTIFICATION TECHNICIAN BASIC METABOLIC PANEL STAT 08/11/2021 10:10 AM IDENTIFICATION TECHNICIAN POCT GLUCOSE DEVICE Routine 08/11/2021 1 0:03 AM IDENTIFICATION TECHNICIAN documented in this encounter Results * eGFR (08/13/2021 12:09 PM IDENTIFICATION TECHNICIAN) eGFR 109 mL/min/1. 73 m2 [facility] [...] interpretive data was last reviewed 2021. Blood 08/13/2021 12:0 9 PM IDENTIFICATION TECHNICIAN 08/13/2021 12:23 PM IDENTIFICATION TECHNICIAN us Naz Enriquez MD LAB BLOOD ORDERABLES Cristy beebe Result [facility] ([place]) [address] [facility] Department [place] [address] * (ABNORMAL) Basic metabolic panel (08/13/2021 12:09 PM IDENTIFICATION TECHNICIAN) Sodium 139 135 - 145 mmol/L [facility] ([place]) Potassium, pl 3.5 3.3 - 4.9 mmol/L [facility] ([place]) Chloride 104 97 - 110 mmol/L [facility] ([place]) CO2 25 22 - 32 mmol/L [facility] ([place]) Anion gap 10 2 - 15 mmol/L [facility] ([place] BUN 10 8 - 25 mg/dL [facility] ([place]) Creatinine 0.57(L) 0.60 - 1.10 mg/dL [facility] ([place]) Glucose 94 70 - 199 mg/dL [facility] ([place]) [...] 2017. Calcium 8.7 8.5 - 10.3 mg/dL [facility] ([place]) Blood 08/13/2021 12:0 9 PM IDENTIFICATION TECHNICIAN 08/13/2021 12:23 PM IDENTIFICATION TECHNICIAN us Naz Enriquez MD LAB BLOOD ORDERABLES Cristy beebe Result [facility] ([place]) 1 [facility] Department [place] [address] * (ABNORMAL) Urine culture Urine (08/13/2021 8:47 AM IDENTIFICATION TECHNICIAN) Report Final Report: Greater than or equal to 100,000 colonies/mL of Escherichia coli (.) [facility] ([place]) Comment:Testing performed by : [facility], [address] [facility], [place]., [address] Organism ESCHERICHIA COLI [facility]ON[facility] ([place]) Urine 08/13/2021 8:47 AM IDENTIFICATION TECHNICIAN 08/13/2021 1:09 PM IDENTIFICATION TECHNICIAN Narrative [facility] ([place]) - 08/16/2021 7:04 AM IDENTIFICATION TECHNICIAN Urine culture reflexed based upon urinalysis results. Testing performed by [facility] ([phone]) Organism Antibiotic Method Susceptibility Escherichia coli Ampicillin INTERPRETATION Susceptible Escherichia coli Cefazolin INTERPRETATION Susceptible Escherichia coli Nitrofurantoin INTERPRETATION Susceptible Escherichia coli Gentamicin INTERPRETATION Susceptible Escherichia coli Trimethoprim with Sulfamethoxazole IN TERPRETATION Susceptible Escherichia coli Meropenem INTERPRETATION Susceptible Escherichia coli Cefepime INTERPRETATION Susceptible Escherichia coli Ciprofloxacin INTERPRETATION Susceptible Escherichia coli Ceftazidime INTERPRETATION Susceptible Escherichia coli Ceftriaxone INTERPRETATION Susceptible Escherichia coli Piperacillin/Tazobactam INTERPRETATIO N Susceptible Escherichia coli Cephalexin INTERPRETATION Susceptible Escherichia coli Cefuroxime-axetil INTERPRETATION Susceptible Escherichia coli Cefdinir INTERPRETATION Susceptible Letha Rose MD LAB MICROBIOLOGY - GENERA L ORDERABLES Final Result Performing Organization Address [facility] Co de Phone Number [facility] ([place]) 1 [facility] [employer] [place] [address] * (ABNORMAL) Urinalysis, microscopic only (08/13/2021 8:47 AM IDENTIFICATION TECHNICIAN) WBC, ur >50(A) 0 - 5 /HPF [facility] ([place]) RBC, ur 11-20(A) 0 - 2 /HPF [facility] ([place]) Epithelial cells, squamous, ur 6-10(A) 0 - 5 /HPF [facility] ([place]) Bacteria, ur 1+(A) [facility] ([place]) Mucous, ur Present(A) [facility] ([place]) Hyaline casts, ur 6-10 0 - 10 /LPF [facility] ([place]) Culture Reflex Comment Reflex to urine culture will be performed. [facility] ([place]) Urine 08/13/2021 8:4 7 AM IDENTIFICATION TECHNICIAN 08/13/2021 9:44 AM IDENTIFICATION TECHNICIAN Letha Rose MD LAB URINE ORDERABLES Cristy l Result Performing Organization Address City/[facility] Co de Phone Number [facility] ([place]) 1 [facility] [employer] [place] [address] * (ABNORMAL) Urinalysis reflex to microscopic and culture Urine (08/13/2021 8:47 AM IDENTIFICATION TECHNICIAN) Color, ur Yellow Yellow [facility] ([place]) Clarity, ur Turbid(A) Clear [facility] ([place]) Specific gravity, ur 1.016 1.003 - 1.030 [facility] ([place]) pH, urine 6.5 [facility] ([place]) Protein, ur ql 1+(A) Negative [facility] ([place]) Glucose, ur ql Negative Negative [facility] ([place]) Ketones, ur 2+(A) Negative [facility] ([place]) Bilirubin, ur Negative Negative [facility] ([place]) Blood, ur 1+(A) Negative [facility] ([place]) Urobilinogen, ur <2.0 <2.0 mg/dL [facility] ([place]) Nitrite, ur Negative Negative [facility] ([place]) Leukocyte esterase, ur 4+(A) Negative [facility] ([place]) UA reflex comment Reflex to microscopic UA will be performed. [facility] ([place]) Urine 08/13/2021 8:47 AM IDENTIFICATION TECHNICIAN 08/13/2021 9:44 AM IDENTIFICATION TECHNICIAN Narrative [facility] - 08/13/2021 9:48 AM IDENTIFICATION TECHNICIAN ?? Urine pH is affected by diet, medications, systemic acid-base disturbances, and renal tubular function. ??pH may affect urinary stone formation. ??For example, urine pH below 6.0 may help reduce the tendency for calcium phosphate stones and pH greater than 6.0 may reduce the tendency for uric acid stone formation. Source: [employer] (MM). Last revised 09-10-2017 Letha Rose MD LAB MICROBIOLOGY - GENERA L ORDERABLES Final Result [facility] ([place]) 1 [facility] Department [place] [address] * eGFR (08/13/2021 4:50 AM IDENTIFICATION TECHNICIAN) eGFR 111 mL/min/1. 73 m2 [facility] ([place]) Comment: [...] interpretive data was last reviewed 2021. Blood 08/13/2021 4:50 AM IDENTIFICATION TECHNICIAN 08/13/2021 5:34 AM IDENTIFICATION TECHNICIAN us Amelia Riley MD LAB BLOOD ORDERABLES Final Resul t [facility] ([place]) 1 [facility] Department [place] [address] * (ABNORMAL) Differential, auto (08/13/2021 4:50 AM IDENTIFICATION TECHNICIAN) Neutrophil abs 4.0 1.7 - 6.5 K/cumm [facility] ([place]) Imm gran abs 0.0 0.0 - 0.1 K/cumm [facility] ([place]) Lymphocyte abs 1.8 0.8 - 3.3 K/cumm [facility] ([place]) Monocyte abs 1.0(H) 0.2 - 0.8 K/cumm [facility] ([place]) Eosinophil abs 0.1 0.0 - 0.5 K/cumm [facility] ([place]) Basophil abs 0.0 0.0 - 0.1 K/cumm [facility] ([place]) Neutrophil pct 56.8 % [facility] ([place]) Comment: Interpretive [...] was last revised on 2017. Lymphocyte pct 26.3 % [facility] ([place]) Comment: Interpretive Data Percent cell count reference ranges are not reported, since discordance with absolute values may lead to misinterpretation of CBC data. Current Interpretive Data was last revised on 2017. Monocyte pct 14.3 % [facility] ([place]) Comment: Interpretive Data Percent cell [...] Data was last revised on 2017. Blood 08/13/2021 4:50 AM IDENTIFICATION TECHNICIAN 08/13/2021 5:34 AM IDENTIFICATION TECHNICIAN us Amelia Riley MD LAB BLOOD ORDERABLES Final Resul t [facility] ([place]) 1 [facility] Department [place] [address] * (ABNORMAL) CBC with auto differential (08/13/2021 4:50 AM IDENTIFICATION TECHNICIAN) WBC 7.0 3.8 - 9.9 K/cumm [facility] ([place]) Hgb 10.1(L) 11.9 - 15.5 g/dL [facility] ([place]) Hct 31.4(L) 35.6 - 45.5 % [facility] ([place]) Plt 281 150 - 400 K/cumm [facility] ([place]) MPV 10.8 9.1 - 12.3 fL [facility] ([place]) RBC 3.55(L) 3.90 - 5.20 M/cumm [facility] ([place]) MCV 88.5 81.3 - 96.4 fL [facility] ([place]) MCH 28.5 27.1 - 33.3 pg [facility] ([place]) MCHC 32.2(L) 32.3 - 35.7 g/dL [facility] ([place]) RDW CV 15.1(H) 11.1 - 14.9 % [facility] ([place]) RDW SD 48.9(H) 35.7 - 48.1 fL [facility] ([place]) NRBC abs 0.00 0.00 - 0.01 K/cumm [facility] ([place]) Blood 08/13/2021 4:50 AM IDENTIFICATION TECHNICIAN 08/13/2021 5:34 AM IDENTIFICATION TECHNICIAN Amelia Riley MD LAB BLOOD ORDERABLES Final Resul t Performing Organization Address City/[facility] Co de Phone Number [facility] ([place]) 1 [facility] [employer] [place] [address] * Phosphorus (08/13/2021 4:50 AM IDENTIFICATION TECHNICIAN) Phosphorus, pl 3.5 2.3 - 4.5 mg/dL [facility] ([place]) Blood 08/13/2021 4:50 AM IDENTIFICATION TECHNICIAN 08/13/2021 5:34 AM IDENTIFICATION TECHNICIAN Amelia Riley MD LAB BLOOD ORDERABLES Final Resul t Performing Organization Address City/[facility] Co de Phone Number [facility] ([place]) 1 [facility] [place] [address] * Magnesium (08/13/2021 4:50 AM IDENTIFICATION TECHNICIAN) Magnesium 1.7 1.4 - 2.5 mg/dL [facility] ([place]) Blood 08/13/2021 4:50 AM IDENTIFICATION TECHNICIAN 08/13/2021 5:34 AM IDENTIFICATION TECHNICIAN Amelia Riley MD LAB BLOOD ORDERABLES Final Resul t [facility] ([place]) 1 [facility] Department [place] [address] * (ABNORMAL) Basic metabolic panel (08/13/2021 4:50 AM IDENTIFICATION TECHNICIAN) Sodium 141 135 - 145 mmol/L [facility] ([place]) Potassium, pl 2.9(C) 3.3 - 4.9 mmol/L [facility] ([place]) Comment:Critical Result call ed to and read back by Farhan Lewis ([facility]), DATE: 2021-08-13 06:44:00 BY: Maurizio Sylvester Chloride 105 97 - 110 mmol/L [facility] ([place]) CO2 26 22 - 32 mmol/L [facility] ([place]) Anion gap 10 2 - 15 mmol/L [facility] ([place]) BUN 10 8 - 25 mg/dL [facility] ([place]) Creatinine 0.53(L) 0.60 - 1.10 mg/dL [facility] ([place]) Glucose 102 70 - 199 mg/dL [facility] ([place]) [...] 2017. Calcium 8.9 8.5 - 10.3 mg/dL [facility] ([place]) Blood 08/13/2021 4:50 AM IDENTIFICATION TECHNICIAN 08/13/2021 5:34 AM IDENTIFICATION TECHNICIAN us Amelia Riley MD LAB BLOOD ORDERABLES Final Resul t [facility] ([place]) [address] [place] [address] Department [place] [address] * TRANSTHORACIC ECHO (TTE) COMPLETE W DOPPLER/CF WO CONTRAST W BUBBLE (08/12/2021 3:45 PM IDENTIFICATION TECHNICIAN) Anatomical Region Laterality Modality Ultrasound 08/12/2021 3:14 PM IDENTIFICATION TECHNICIAN Narrative 08/12/2021 6:32 PM IDENTIFICATION TECHNICIAN [address] [address] Echocardiogram Report Patient Name: SARAHY MAYS : 1970 Study Date: 2021-08-12 3:14:03 PM Gender: F Tech: DEHORNER Location: [id number] Ref.Provider: NORTH HUERTAS Height(Cm): 164 BSA: 1.76 Weight(Kg): 68 Quality: Adequate Order Provider: NORTH HUERTAS Procedures: Echocardiographic Report: Transthoracic echocardiogram with 2D, M-Mode, and color Doppler examination with saline contrast study. Indications: Transient Ischemic Attack. Measurements: 2D/M Mode ?Doppler ? Measurement ?Value ?Normal Range ? Measurement ?Value ?Normal Range ? EF Teich MM ?51.3 ? [ 55.0 - 70.0 ] percent ?ELAINA Vmax ? 3.36 ? [ 2.00 - 4.00 ] cm2 ? LVIDd MM ? 4.89 ? [ 3.90 - 5.30 ] cm ? AV Mean PG ? 4 ?[ 2 - 4 ] mmHg ? LVIDs MM ? 3.61 ? [ 2.30 - 3.90 ] cm ? AV Peak Nahid ?1.49 ? [ 1.00 - 1.70 ] m/s ? LVPWd MM ? 1.15 ? [ 0.60 - 1.00 ] cm ? AV VTI ? 35.55 ?cm ? IVSd MM ?0.90 ? [ 0.60 - 0.90 ] cm ? LVOT Diam ?2.34 ? [ 1.70 - 2.10 ] cm ? LA Dimension MM ?3.82 ? [ 2.70 - 3.80 ] cm ? LVOT Peak Nahid ?1.17 ? [ 0.70 - 1.10 ] m/s ? AoR Diam MM ?2.92 ? [ 2.60 - 3.70 ] cm ? LVOT VTI ? 22.72 ?[ 20.00 - 30.00 ] cm ? ACS MM ? 2.01 ? cm ? MV E Peak Nahid ?0.95 ? [ 0.60 - 1.30 ] m/s ? MV A Peak Nahid ?0.42 ? [ 1.00 - 1.20 ] m/s ? MV Mean PG ? 2 ?[ <= 5 ] mmHg ? MV PHT ? 56 ? [ 20 - 100 ] msec ? MVA ?3.90 ? MV Decel Time ?194 ?[ 104 - 258 ] msec ? PV Peak Nahid ?1.17 ? [ 0.40 - 0.80 ] m/s ? TR Peak Nahid ?3.00 ? [ 1.00 - 2.80 ] m/s ? TR Peak PG ? 36 ? mmHg ? RVSP ? 46.00 ?[ 10.00 - 36.00 ] mmHg ? E' ? 0.11 ? E/E' ? 8.65 ? PA Pressure ?10.00 ?[ 10.00 - 36.00 ] mmHg ? Findings: Atrial Septum: The atrial septum is not well visualized. Saline contrast study performed without evidence of right to left shunt. Left Ventricle: Normal left ventricular systolic function with no focal wall motion abnormalities. Normal left ventricular size. Left ventricular wall thickness upper limits of normal. Normal left ventricular diastolic function. Ejection fraction is visually estimated at 60-70 %. Left Atrium: The left atrium is normal in size. Right Ventricle: Normal right ventricular size. Normal right ventricular systolic function. Right Atrium: The right atrium is normal in size. Aortic Valve: Normal structure of the aortic valve. Mitral Valve: Normal structure of the mitral valve. Pulmonic Valve: Normal structure of the pulmonic valve. Tricuspid Valve: Normal structure of the tricuspid valve. Normal right ventricular systolic pressure. Pericardium: Normal pericardium with no significant pericardial effusion. Aorta: Normal aortic root. Sinus of Valsalva is normal. Aortic arch is normal. Descending aorta is normal. IVC: Normal size and normal respiratory collapse consistent with normal right atrial pressure (<5 mmHg). Pulmonary Artery: Normal pulmonary artery size. Conclusions: Normal left ventricular systolic function with no focal wall motion abnormalities. Normal left ventricular size. Left ventricular wall thickness upper limits of normal. Normal left ventricular diastolic function. Ejection fraction is visually estimated at 60-70 %. The atrial septum is not well visualized. Saline contrast study performed without evidence of right to left shunt within limitations of poor image quality. Electronically Signed By: Kofi Sheffield MD, [facility] 2021-08-12 18:32:12 IDENTIFICATION TECHNICIAN Procedure Note Kofi Sheffield MD - 08/12/[address] [address] Echocardiogram Report Patient Name: Rajwinder MAYS ID: [id number] : [id number] Date: 2021-08-12 3:14:03 PM Gender: FAccession #: [id number] Tech: NPLocation: [id number] Ref.Provider: NORTH HUERTASHeight(Cm): 164 BSA: 1.76Weight(Kg): 68 Quality: AdequateOrder Provider: NORTH HUERTAS Procedures: Echocardiographic Report: Transthoracic echocardiogram with 2D, M-Mode, and color Dopplerexamination with saline contrast study. Indications: Transient Ischemic Attack. Measurements: 2D/M Mode Doppler Measurement Value Normal Range MeasurementValue Normal Range EF Teich MM 51.3 [ 55.0 - 70.0 ] percent ELAINA Vmax3.36 [ 2.00 - 4.00 ] cm2 LVIDd MM 4.89 [ 3.90 - 5.30 ] cm AV Mean PG 4[ 2 - 4 ] mmHg LVIDs MM 3.61 [ 2.30 - 3.90 ] cm AV Peak Vel1.49 [ 1.00 - 1.70 ] m/s LVPWd MM 1.15 [ 0.60 - 1.00 ] cm AV VTI35.55 cm IVSd MM 0.90 [ 0.60 - 0.90 ] cm LVOT Diam2.34 [ 1.70 - 2.10 ] cm LA Dimension MM 3.82 [ 2.70 - 3.80 ] cm LVOT Peak Vel1.17 [ 0.70 - 1.10 ] m/s AoR Diam MM 2.92 [ 2.60 - 3.70 ] cm LVOT VTI22.72 [ 20.00 - 30.00 ] cm ACS MM 2.01 cm MV E Peak Vel0.95 [ 0.60 - 1.30 ] m/s MV A Peak Vel0.42 [ 1.00 - 1.20 ] m/s MV Mean PG 2[ <= 5 ] mmHg MV PHT 56[ 20 - 100 ] msec MVA3.90 MV Decel Avso055 [ 104 - 258 ] msec PV Peak Vel1.17 [ 0.40 - 0.80 ] m/s TR Peak Vel3.00 [ 1.00 - 2.80 ] m/s TR Peak PG 36mmHg RVSP46.00 [ 10.00 - 36.00 ] mmHg E'0.11 E/E'8.65 PA Xcxxjnaq05.00 [ 10.00 - 36.00 ] mmHg Findings: Atrial Septum: The atrial septum is not well visualized. Saline contrast study performedwithout evidence of right to left shunt. Left Ventricle: Normal left ventricular systolic function with no focal wall motionabnormalities. Normal left ventricular size. Left ventricular wall thickness upper limits ofnormal. Normal left ventricular diastolic function. Ejection fraction is visuallyestimated at 60-70 %. Left Atrium: The left atrium is normal in size. Right Ventricle: Normal right ventricular size. Normal right ventricular systolicfunction. Right Atrium: The right atrium is normal in size. Aortic Valve: Normal structure of the aortic valve. Mitral Valve: Normal structure of the mitral valve. Pulmonic Valve: Normal structure of the pulmonic valve. Tricuspid Valve: Normal structure of the tricuspid valve. Normal right ventricular systolicpressure. Pericardium: Normal pericardium with no significant pericardial effusion. Aorta: Normal aortic root. Sinus of Valsalva is normal. Aortic arch is normal.Descending aorta is normal. IVC: Normal size and normal respiratory collapse consistent with normal rightatrial pressure (<5 mmHg). Pulmonary Artery: Normal pulmonary artery size. Conclusions: Normal left ventricular systolic function with no focal wall motionabnormalities. Normal left ventricular size. Left ventricular wall thickness upper limitsof normal. Normal left ventricular diastolic function. Ejection fraction is visuallyestimated at 60-70 %. The atrial septum is not well visualized. Saline contrast study performedwithout evidence of right to left shunt within limitations of poor imagequality. Electronically Signed By: Kofi Sheffield MD, [facility] 2021-08-12 18:32:12 IDENTIFICATION TECHNICIAN us [place] MD CV ECHO PROCEDURES Final Resu lt * US Carotids Duplex Bilateral (08/12/2021 9:12 AM IDENTIFICATION TECHNICIAN) Anatomical Region Laterality Modality Vascular Bilateral Ultrasound 08/12/2021 9:16 AM IDENTIFICATION TECHNICIAN Narrative 08/12/2021 9:24 AM IDENTIFICATION TECHNICIAN EXAM DESCRIPTION: ?? US CAROTIDS DUPLEX BILATERAL REASON FOR STUDY: Other Cerebral Infarction (Stroke) ?? Stroke, left-sided facial tingling and left extremity weakness since last night. ? TECHNIQUE: Aj scale, color Doppler and spectral Doppler imaging were performed. ??Velocity criteria are extrapolated from diameter as defined by the Society of Radiologists in Ultrasound Consensus Conference. All velocity measurements are in cm/sec. COMPARISON: None FINDINGS: Right: ??Mild intimal thickening. Distal CCA Peak Systolic Velocity: ??95.9 Peak ICA Systolic Velocity: ??122.8 Peak ICA/CCA Systolic Ratio: ??1.3 Vertebral Artery: ?? Antegrade flow. Left: ??Mild intimal thickening. Distal CCA Peak Systolic Velocity: 94.2 Peak ICA Systolic Velocity: 106.9 Peak ICA/CCA Systolic Ratio: 1.1 Vertebral Artery: ?? Antegrade flow. IMPRESSION: 1. Velocities correspond to a ??less than 50% ??diameter stenosis of the right internal carotid artery. 2. Velocities correspond to a ??less than 50% ??diameter stenosis of the left internal carotid artery. 3. ??Antegrade direction of flow of the bilateral vertebral arteries. REFERENCE: Consensus Panel Aj-Scale and Doppler US Criteria for Diagnosis of ICA Stenosis. No stenosis: ICA PSV <125*, 0% plaque, ICA/CCA PSV Ratio <2.0, ICA EDV <40*. <50% stenosis: ICA PSV <125*, <50% plaque, ICA/CCA PSV Ratio <2.0, ICA EDV <40*. 50-69% stenosis: ICA PSV 125-230*, >=50% plaque, ICA/CCA PSV Ratio 2.0-4.0, ICA EDV 40-100*. >=70% but less than near occlusion >230, >=50% plaque, ICA/CAA PSV Ratio >4.0, ICA EDV >100*. *cm/sec Plaque estimate (diameter reduction) with aj-scale and color Doppler US. RSNA 2002 THIS IS AN ELECTRONICALLY VERIFIED FINAL REPORT 08/12/2021 9:24 AM - Electronically signed by ??Sukhjinder Pastrana M.D. JR: D: ??08/12/2021 9:24 AM T: ??08/12/2021 9:24 AM Report ID: [id number] Reading Location: ??[id number] Procedure Note Sukhjinder Pastrana MD - 08/12/2021 EXAM DESCRIPTION: US CAROTIDS DUPLEX BILATERAL REASON FOR STUDY: Other Cerebral Infarction (Stroke) Stroke, left-sided facial tingling and left extremity weakness since last night. TECHNIQUE: Aj scale, color Doppler and spectral Doppler imaging were performed. Velocity criteria are extrapolated from diameter as defined bythe Society of Radiologists in Ultrasound Consensus Conference. All velocity measurements are in cm/sec. COMPARISON: None FINDINGS: Right: Mild intimal thickening. Distal CCA Peak Systolic Velocity: 95.9 Peak ICA Systolic Velocity: 122.8 Peak ICA/CCA Systolic Ratio: 1.3 Vertebral Artery: Antegrade flow. Left: Mild intimal thickening. Distal CCA Peak Systolic Velocity: 94.2 Peak ICA Systolic Velocity: 106.9 Peak ICA/CCA Systolic Ratio: 1.1 Vertebral Artery: Antegrade flow. IMPRESSION: 1. Velocities correspond to a less than 50% diameter stenosis of theright internal carotid artery. 2. Velocities correspond to a less than 50% diameter stenosis of theleft internal carotid artery. 3. Antegrade direction of flow of the bilateral vertebral arteries. REFERENCE: Consensus Panel Aj-Scale and Doppler US Criteria forDiagnosis of ICA Stenosis. No stenosis: ICA PSV <125*, 0% plaque, ICA/CCA PSV Ratio <2.0, ICA EDV<40*. <50% stenosis: ICA PSV <125*, <50% plaque, ICA/CCA PSV Ratio <2.0, ICA EDV <40*. 50-69% stenosis: ICA PSV 125-230*, >=50% plaque, ICA/CCA PSV Ratio2.0-4.0, ICA EDV 40-100*. >=70% but less than near occlusion >230, >=50% plaque, ICA/CAA PSV Ratio>4.0, ICA EDV >100*. *cm/sec Plaque estimate (diameter reduction) with aj-scale and color DopplerUS. RSNA 2002 THIS IS AN ELECTRONICALLY VERIFIED FINAL REPORT 08/12/2021 9:24 AM - Electronically signed by Sukhjinder Pastrana M.D. JR: Report ID: [id number] Reading Location: [id number] [place] MD IM US PROCEDURES Final Resul t * MRI Brain WO Contrast (08/12/2021 8:43 AM IDENTIFICATION TECHNICIAN) Anatomical Region Laterality Modality Head and Neck N/A Magnetic Resonan ce 08/12/2021 8:48 AM IDENTIFICATION TECHNICIAN Narrative 08/12/2021 8:53 AM IDENTIFICATION TECHNICIAN EXAM DESCRIPTION: ?? MRI BRAIN WO CONTRAST REASON FOR STUDY: ?? Neuro deficit, acute, stroke suspected ?? left-sided facial droop since Thursday at 7 PM. Associated symptoms include speech difficulty and generalized tremors. She states that these symptoms have improved since last night, but are still present. Additionally, she reports decreased appetite, ?? nausea, and mild, intermittent abdominal cramping, which have been improving since she was recently admitted to this facility for small bowel intussusception ?? TECHNIQUE: Multiplanar imaging includes non-contrasted T1, T2, FLAIR, and diffusion with ADC map sequences. Additional sequence(s) sensitive to blood products. Images stored on PACS. ? COMPARISON: ?? Head CT 08/11/2021. FINDINGS: CEREBRUM: ?? There is no mass, mass effect or midline shift. ?No intracranial hemorrhage or blood degradation products. WHITE MATTER: ?? Few small T2/FLAIR hyperintensities affecting the supratentorial white matter are nonspecific and may not be clinically significant. ??Most likely this is on the basis of very mild chronic ischemic microangiopathy. POSTERIOR FOSSA: ?? Unremarkable. ??There is no cerebellar tonsillar ectopia. DIFFUSION IMAGING: ?? No cytotoxic edema is identified. EXTRAAXIAL SPACES: ?? No mass or fluid collection. BRAIN VOLUME: ?? Age appropriate. ??No evidence of hydrocephalus. PITUITARY: ?? Unremarkable. VASCULATURE: ?? Flow voids at the skull base are present. ORBITS: ?? Unremarkable. PARANASAL SINUSES AND MASTOIDS: ?? Sinuses and mastoids are clear. OTHER: ?? No other significant finding. IMPRESSION: ?? Mild chronic ischemic microangiopathy. ??No acute intracranial abnormality or recent infarction. THIS IS AN ELECTRONICALLY VERIFIED FINAL REPORT 08/12/2021 8:53 AM - Electronically signed by ??Rodri Hayes D.O. : D: ??08/12/2021 8:53 AM T: ??08/12/2021 8:53 AM Report ID: [id number] Reading Location: ??[id number] Procedure Note Abigail Rodri, DO - 08/12/2021 EXAM DESCRIPTION: MRI BRAIN WO CONTRAST REASON FOR STUDY: Neuro deficit, acute, stroke suspected left-sided facial droop since Thursday at 7 PM. Associated symptomsinclude speech difficulty and generalized tremors. She states that these symptomshave improved since last night, but are still present. Additionally, shereports decreased appetite, nausea, and mild, intermittent abdominal cramping,which have been improving since she was recently admitted to this facility forsmall bowel intussusception TECHNIQUE: Multiplanar imaging includes non-contrasted T1, T2, FLAIR, and diffusion with ADC map sequences. Additional sequence(s) sensitive toblood products. Images stored on PACS. COMPARISON: Head CT 08/11/2021. FINDINGS: CEREBRUM: There is no mass, mass effect or midline shift. Nointracranial hemorrhage or blood degradation products. WHITE MATTER: Few small T2/FLAIR hyperintensities affecting the supratentorial white matter are nonspecific and may not be clinically significant. Most likely this is on the basis of very mild chronicischemic microangiopathy. POSTERIOR FOSSA: Unremarkable. There is no cerebellar tonsillarectopia. DIFFUSION IMAGING: No cytotoxic edema is identified. EXTRAAXIAL SPACES: No mass or fluid collection. BRAIN VOLUME: Age appropriate. No evidence of hydrocephalus. PITUITARY: Unremarkable. VASCULATURE: Flow voids at the skull base are present. ORBITS: Unremarkable. PARANASAL SINUSES AND MASTOIDS: Sinuses and mastoids are clear. OTHER: No other significant finding. IMPRESSION: Mild chronic ischemic microangiopathy. No acute intracranial abnormalityor recent infarction. THIS IS AN ELECTRONICALLY VERIFIED FINAL REPORT 08/12/2021 8:53 AM - Electronically signed by Rodri Hayes D.O. : Report ID: [id number] Reading Location: [id number] [place] MD IMG MRI PROCEDURES Final Resu lt * Lipid panel (08/12/2021 3:12 AM IDENTIFICATION TECHNICIAN) Cholesterol 192 30 - 199 mg/dL [facility] ([place]) Comment: Interpretive Data Ages < or = 19 years ??Acceptable: ? <170 mg/dL ??Borderline high: ??170-199 mg/dL ??High: ? >or= 200 mg/dL Ages > or = 20 years ??Desirable: ?<200 mg/dL ??Borderline high: ??200-239 mg/dL ??High: ? >or= 240 mg/dL Literature References: 1. Expert Panel on Integrated Guidelines for Cardiovascular Health and Risk Reduction in Children and Adolescents. Pediatrics 2011;128:S213 2. NCEP Expert Panel. Circulation 2004;110:227 Current Interpretive Data was last revised on 2018. Triglycerides 70 <=149 mg/dL [facility] ([place]) Comment: Interpretive Data Ages < or = 9 years ??Acceptable: ? <75 mg/dL ??Borderline high: ??75-99 mg/dL ??High: ? >or= 100 mg/dL Ages 10 to 20 years ??Acceptable: ? <90 mg/dL ??Borderline high: ??90-129 mg/dL ??High: ? >or= 130 mg/dL Ages > or = 20 years ??Desirable: ?<150 mg/dL ??Borderline high: ??150-199 mg/dL ??High: ? 200-499 mg/dL ?Very high: ?? >or= 499 mg/dL Literature References: 1. Expert Panel on Integrated Guidelines for Cardiovascular Health and Risk Reduction in Children and Adolescents. Pediatrics 2011;128:S213 2. NCEP Expert Panel. Circulation 2004;110:227 Current Interpretive Data was last revised on 2018. HDL 55 >=40 mg/dL [facility] ([place]) Comment: Interpretive Data Ages < or = 19 years ??Acceptable: ? >45 mg/dL ??Borderline low: ?? 40-45 mg/dL ??Low: ? <40 mg/dL Ages > or = 20 years ??Desirable: ?>or= 60 mg/dL ??Low: ? <40 mg/dL Literature References: 1. Expert Panel on Integrated Guidelines for Cardiovascular Health and Risk Reduction in Children and Adolescents. Pediatrics 2011;128:S213 2. NCEP Expert Panel. Circulation 2004;110:227 Current Interpretive Data was last revised on 2018. LDL, calculated 123 <=129 mg/dL [facility] ([place]) Comment: Interpretive Data Ages < or = 19 years ??Acceptable: ? <110 mg/dL ??Borderline high: ??110-129 mg/dL ??High: ?>or= 130 mg/dL Ages > or = 20 years ??Optimal: ? <100 mg/dL ??Near optimal: ?100-129 mg/dL ??Borderline high: ?? 130-159 mg/dL ??High: ?>160 mg/dL Literature References: 1. Expert Panel on Integrated Guidelines for Cardiovascular Health and Risk Reduction in Children and Adolescents. Pediatrics 2011;128:S213 2. NCEP Expert Panel. Circulation 2004;110:227 Current Interpretive Data was last revised on 2018. Non-HDL Cholesterol 137 mg/dL [facility] ([place]) Comment: Interpretive Data Ages < or = 19 years ??Acceptable: ?<120 mg/dL ??Borderline high: ??120-144 mg/dL ??High: ?>145 mg/dL Ages > or = 20 years ??When triglycerides are >200 mg/dL, Non-HDL cholesterol is a secondary target of ? therapy with treatment goals that are 30 mg/dL greater than the LDL cholesterol target. ? Literature References: 1. Expert Panel on Integrated Guidelines for Cardiovascular Health and Risk Reduction in Children and Adolescents. Pediatrics 2011;128:S213 2. NCEP Expert Panel. Circulation 2004;110:227 Current Interpretive Data was last revised on 2018. Chol/HDL ratio 3 [facility] ([place]) Blood 08/12/2021 3:12 AM IDENTIFICATION TECHNICIAN 08/12/2021 4:33 AM IDENTIFICATION TECHNICIAN [place] MD LAB BLOOD ORDERABLES Final Re sult Performing Organization Address [facility] de Phone Number [facility] ([facility]) 1 [facility] [place] [address] * Hemoglobin A1c (08/12/2021 3:12 AM IDENTIFICATION TECHNICIAN) Pathologist [facility] Hgb A1C 5.0 4.0 - 5.6 % [facility] ([facility]) Estimated Average Glucose 97 mg/dL [facility] ([facility]) Comment: The ADA recommends reporting an estimated Average Glucose (eAG) with all Hemoglobin A1c results using the equation derived from a study of 507 normal and diabetic adults. ??Minority populations were underrepresented and children were not included. ?? (Diabetes Care 31:2120-9003, 2008). ??The eAG is not equivalent to a fasting glucose. Blood 08/12/2021 3:12 AM IDENTIFICATION TECHNICIAN 08/12/2021 4:33 AM IDENTIFICATION TECHNICIAN [place] MD LAB BLOOD ORDERABLES Final Re sult Performing Organization Address City/[facility] Co de Phone Number [facility] ([place]) 1 [facility] [place] [address] * eGFR (08/12/2021 3:11 AM IDENTIFICATION TECHNICIAN) eGFR 109 mL/min/1. 73 m2 [facility] [...] interpretive data was last reviewed 2021. Blood 08/12/2021 3:11 AM IDENTIFICATION TECHNICIAN 08/12/2021 8:14 AM IDENTIFICATION TECHNICIAN us Amelia Riley MD LAB BLOOD ORDERABLES Final Resul t [facility] ([place]) 1 [facility] Department [place] [address] * (ABNORMAL) Differential, auto (08/12/2021 3:11 AM IDENTIFICATION TECHNICIAN) Neutrophil abs 4.9 1.7 - 6.5 K/cumm [facility] ([place]) Imm gran abs 0.0 0.0 - 0.1 K/cumm [facility] ([place]) Lymphocyte abs 2.2 0.8 - 3.3 K/cumm [facility] ([place]) Monocyte abs 1.1(H) 0.2 - 0.8 K/cumm [facility] ([place]) Eosinophil abs 0.1 0.0 - 0.5 K/cumm [facility] ([place]) Basophil abs 0.0 0.0 - 0.1 K/cumm [facility] ([place]) Neutrophil pct 58.8 % [facility] ([place]) Comment: Interpretive [...] was last revised on 2017. Lymphocyte pct 26.0 % [facility] ([place]) Comment: Interpretive Data Percent cell count reference ranges are not reported, since discordance with absolute values may lead to misinterpretation of CBC data. Current Interpretive Data was last revised on 2017. Monocyte pct 13.3 % [facility] ([place]) Comment: Interpretive Data [...] Data was last revised on 2017. Blood 08/12/2021 3:11 AM IDENTIFICATION TECHNICIAN 08/12/2021 8:14 AM IDENTIFICATION TECHNICIAN us Amelia Riley MD LAB BLOOD ORDERABLES Final Resul t [facility] ([place]) 1 [facility] Department [place] [address] * (ABNORMAL) CBC with auto differential (08/12/2021 3:11 AM IDENTIFICATION TECHNICIAN) WBC 8.3 3.8 - 9.9 K/cumm [facility] ([place]) Hgb 9.8(L) 11.9 - 15.5 g/dL [facility] ([place]) Hct 30.6(L) 35.6 - 45.5 % [facility] ([place]) Plt 277 150 - 400 K/cumm [facility] ([place]) MPV 11.1 9.1 - 12.3 fL [facility] ([place]) RBC 3.47(L) 3.90 - 5.20 M/cumm [facility] ([place]) MCV 88.2 81.3 - 96.4 fL [facility] ([place]) MCH 28.2 27.1 - 33.3 pg [facility] ([place]) MCHC 32.0(L) 32.3 - 35.7 g/dL [facility] ([place]) RDW CV 15.7(H) 11.1 - 14.9 % [facility] ([place]) RDW SD 49.6(H) 35.7 - 48.1 fL [facility] ([place]) NRBC abs 0.00 0.00 - 0.01 K/cumm [facility] ([place]) Blood 08/12/2021 3:11 AM IDENTIFICATION TECHNICIAN 08/12/2021 8:14 AM IDENTIFICATION TECHNICIAN Amelia Riley MD LAB BLOOD ORDERABLES Final Resul t Performing Organization Address City/[facility] Co de Phone Number [facility] ([place]) 1 [facility] [place] [address] * Phosphorus (08/12/2021 3:11 AM IDENTIFICATION TECHNICIAN) Phosphorus, pl 3.1 2.3 - 4.5 mg/dL [facility] ([place]) Blood 08/12/2021 3:11 AM IDENTIFICATION TECHNICIAN 08/12/2021 8:14 AM IDENTIFICATION TECHNICIAN Amelia Riley MD LAB BLOOD ORDERABLES Final Resul t [facility] ([place]) 1 [facility] [place] [address] * Magnesium (08/12/2021 3:11 AM IDENTIFICATION TECHNICIAN) Magnesium 1.7 1.4 - 2.5 mg/dL [facility] ([place]) Blood 08/12/2021 3:11 AM IDENTIFICATION TECHNICIAN 08/12/2021 8:14 AM IDENTIFICATION TECHNICIAN Amelia Riley MD LAB BLOOD ORDERABLES Final Resul t [facility] ([place]) 1 [facility] Department [place] [address] * (ABNORMAL) Basic metabolic panel (08/12/2021 3:11 AM IDENTIFICATION TECHNICIAN) Sodium 144 135 - 145 mmol/L [facility] ([place]) Potassium, pl 3.1(L) 3.3 - 4.9 mmol/L [facility] ([place]) Chloride 107 97 - 110 mmol/L [facility] ([place]) CO2 22 22 - 32 mmol/L [facility] ([place]) Anion gap 15 2 - 15 mmol/L [facility] ([place]) BUN 12 8 - 25 mg/dL [facility] ([place]) Creatinine 0.52(L) 0.60 - 1.10 mg/dL [facility] ([place]) Glucose 91 70 - 199 mg/dL [facility] ([place] Comment: Interpretive Data Fasting glucose [...] interpretive data was last revised 2017. Calcium 8.6 8.5 - 10.3 mg/dL [facility] ([place]) Blood 08/12/2021 3:11 AM IDENTIFICATION TECHNICIAN 08/12/2021 8:14 AM IDENTIFICATION TECHNICIAN Amelia Riley MD LAB BLOOD ORDERABLES Final Resul t [facility] [place]) 6 [facility] Department [place] [address] * OR CRITICAL CARE ILL/INJURED PATIENT INIT 30-74 MIN (08/11/2021 12:20 PM IDENTIFICATION TECHNICIAN) Narrative Juice Pineda MD - 08/11/2021 12:20 PM IDENTIFICATION TECHNICIAN Juice Pineda MD ? 08/11/2021 12:20 PM Critical Care Performed by: Juice Pineda MD Authorized by: Juice Pineda MD Critical care provider statement: As reflected in the history, physical exam, orders, notes, and/or MDM, I was personally present while the patient was critically ill and provided critical care services for approximately 45 minutes, excluding time involved in separately billable procedures. ??Critical care was necessary to treat or prevent imminent or life-threatening deterioration of the following condition(s): ?? acute cerebrovascular accident (CVA) ??Critical care was time spent by me providing the following: ? decision regarding acute lytic therapy and initiation of stroke management ?? I provided emergent necessary critical care medicine services to this patient. I ordered and reviewed test results and/or imaging studies. I spent time discussing the management of this critically ill patient with consultants and the medical staff. us Jiuce Pineda MD IN CLINIC/BEDSIDE ORDERABLES Edited Result - Final * ECG 12 lead (08/11/2021 10:23 AM IDENTIFICATION TECHNICIAN) 08/11/2021 10:2 3 AM IDENTIFICATION TECHNICIAN Narrative [facility] - 08/12/2021 9:51 AM IDENTIFICATION TECHNICIAN Vent Rate: 69 bpm RR Interval: 864 msec OR Interval: 141 msec QRS Duration: 70 msec QT Interval: 392 msec QTC Interval: 411 msec P-R-T [place]: 41 - 41 - 18 degrees SINUS RHYTHM WITH OCCASIONAL SUPRAVENTRICULAR PREMATURE COMPLEXES NONSPECIFIC T-WAVE ABNORMALITY BORDERLINE ECG No change from prior EKG Electronically Signed By: Arnaldo Yan MD us Juice Pineda MD ECG ORDERABLES Final Result [facility] * CT Stroke Head WO Contrast (08/11/2021 10:11 AM IDENTIFICATION TECHNICIAN) Anatomical Region Laterality Modality Head N/A Computed Tomogra phy 08/11/2021 10:1 3 AM IDENTIFICATION TECHNICIAN Narrative 08/11/2021 10:15 AM IDENTIFICATION TECHNICIAN EXAM DESCRIPTION: ?? CT STROKE HEAD WO CONTRAST REASON FOR STUDY: ?? Neuro deficit, acute, stroke suspected, Stroke ?? Left sided facial tingling and left extremity weakness started around 7 pm last night. ?? TECHNIQUE: Axial images acquired through the brain without intravenous contrast. ??Images stored on PACS. ?? Automated exposure control was used as a dose optimization technique for this examination. COMPARISON: ?? No prior. FINDINGS: BRAIN: ?? There are no extra-axial fluid collections. ??No evidence of hemorrhage. ??Aj-white matter differentiation is normal. ?Ventricles and sulci are consistent with age. ??No shift of midline structures or of mass effect. ? EXTRA-AXIAL SPACES: ?? No fluid collections. No masses. CALVARIUM: ?? No fracture. SINUSES/MASTOIDS: ?? No fluid or mucosal thickening. ORBITS: ?? No significant abnormality. OTHER: ?? No other significant abnormality. IMPRESSION: ?? 1. ?? No acute intracranial findings. 2. ?? Findings called by the operation support center at 10:15 a.m. 08/11/2021. THIS IS AN ELECTRONICALLY VERIFIED FINAL REPORT 08/11/2021 10:15 AM - Electronically signed by ??Say Ford M.D. MJ: KIA D: ??08/11/2021 10:15 AM T: ??08/11/2021 10:15 AM Report ID: [id number] Reading Location: ??[id number] Procedure Note Say Ford MD - 08/11/2021 EXAM DESCRIPTION: CT STROKE HEAD WO CONTRAST REASON FOR STUDY: Neuro deficit, acute, stroke suspected, Stroke Left sided facial tingling and left extremity weakness started around 7 pm last night. TECHNIQUE: Axial images acquired through the brain without intravenous contrast. Images stored on PACS. Automated exposure control was used asa dose optimization technique for this examination. COMPARISON: No prior. FINDINGS: BRAIN: There are no extra-axial fluid collections. No evidence of hemorrhage. Aj-white matter differentiation is normal. Ventriclesand sulci are consistent with age. No shift of midline structures or of mass effect. EXTRA-AXIAL SPACES: No fluid collections. No masses. CALVARIUM: No fracture. SINUSES/MASTOIDS: No fluid or mucosal thickening. ORBITS: No significant abnormality. OTHER: No other significant abnormality. IMPRESSION: 1. No acute intracranial findings. 2. Findings called by the operation support center at 10:15 a.m.08/11/2021. THIS IS AN ELECTRONICALLY VERIFIED FINAL REPORT 08/11/2021 10:15 AM - Electronically signed by Say Ford M.D. MJ: KIA Report ID: [id number] Reading Location: [place] [address] us Juice Pineda MD IMG CT PROCEDURES Final Resu lt * eGFR (08/11/2021 10:10 AM IDENTIFICATION TECHNICIAN) eGFR 97 mL/min/1.7 3 m2 [facility] ([place]) Comment: Interpretive Data [...] interpretive data was last reviewed 2020 Blood 08/11/2021 10:1 0 AM IDENTIFICATION TECHNICIAN 08/11/2021 10:13 AM IDENTIFICATION TECHNICIAN us Juice Pineda MD LAB BLOOD ORDERABLES Final R esult [facility] ([place] 1 [facility] Department [place] [address] * Differential, auto (08/11/2021 10:10 AM IDENTIFICATION TECHNICIAN) Neutrophil abs 5.4 1.7 - 6.5 K/cumm [facility] ([place]) Imm gran abs 0.0 0.0 - 0.1 K/cumm [facility] ([place]) Lymphocyte abs 1.5 0.8 - 3.3 K/cumm [facility] ([place]) Monocyte abs 0.8 0.2 - 0.8 K/cumm [facility] ([place]) Eosinophil abs 0.0 0.0 - 0.5 K/cumm [facility] ([place]) Basophil abs 0.0 0.0 - 0.1 K/cumm [facility] ([place]) Neutrophil pct 69.4 % [facility] ([place]) Comment: Interpretive [...] was last revised on 2017. Lymphocyte pct 19.4 % [facility] ([place]) Comment: Interpretive Data Percent cell count reference ranges are not reported, since discordance with absolute values may lead to misinterpretation of CBC data. Current Interpretive Data was last revised on 2017. Monocyte pct 10.1 % [facility] ([place]) Comment: Interpretive Data [...] Data was last revised on 2017. Blood 08/11/2021 10:1 0 AM IDENTIFICATION TECHNICIAN 08/11/2021 10:13 AM IDENTIFICATION TECHNICIAN Juice Pineda MD LAB BLOOD ORDERABLES Final R esult [facility] ([place]) 1 [facility] Department [place] [address] * Hepatic function panel (08/11/2021 10:10 AM IDENTIFICATION TECHNICIAN) Bilirubin, total 0.2 0.1 - 1.2 mg/dL [facility] ([place]) Bilirubin, direct <0.2 0.1 - 0.3 mg/dL [facility] ([place]) Protein, pl 7.5 6.5 - 8.5 g/dL [facility] ([place]) Albumin 4.4 3.5 - 5.0 g/dL [facility] ([place]) Alk phos 83 40 - 130 Units/L [facility] ([place]) ALT 12 7 - 45 Units/L [facility] ([place]) AST 23 10 - 45 Units/L [facility] ([place]) Blood 08/11/2021 10:1 0 AM IDENTIFICATION TECHNICIAN 08/11/2021 10:13 AM IDENTIFICATION TECHNICIAN Juice Pineda MD LAB BLOOD ORDERABLES Final R esult Performing Organization Address City/[facility]/ZIP Co de Phone Number [facility] ([place]) 1 [facility] [place] [address] * Troponin T high-sensitivity series (baseline, 2hr, 4hr, 6hr) (08/11/2021 10:10 AM IDENTIFICATION TECHNICIAN) Trop T hs <6 <=14 ng/L [facility] ([place]) Comment: Interpretive Data For further hscTnT resources including the diagnostic algorithm and an aid in interpretation, copy and paste this link: [email or web address].testcatalog.org/show/[email or web address] Current Interpretive Data last revised 2020. Blood 08/11/2021 10:1 0 AM IDENTIFICATION TECHNICIAN 08/11/2021 10:13 AM IDENTIFICATION TECHNICIAN Juice Pineda MD LAB BLOOD ORDERABLES Final R esult Performing Organization Address [facility] Co de Phone Number [facility] ([place]) 1 [facility] [place] [address] * (ABNORMAL) aPTT (08/11/2021 10:10 AM IDENTIFICATION TECHNICIAN) aPTT 41(H) 27 - 37 sec [facility] ([place]) Comment: Interpretive data Heparin therapeutic range: 60-94 seconds Range based on correlation with therapeutic heparin activity range of 0.3-0.7 units/ml. Current interpretive data was last revised on 2019. Blood (Blood, Venous) 08/11/2021 10:10 AM IDENTIFICATION TECHNICIAN 08/11/2021 10:13 AM IDENTIFICATION TECHNICIAN Narrative [facility] ([place]) - 08/11/2021 10:25 AM IDENTIFICATION TECHNICIAN Potential stroke patient. Juice Pineda MD LAB BLOOD ORDERABLES Final R esult Performing Organization Address City/[facility]/ZIP Co de Phone Number [facility] ([place]) 1 [facility] [place] [address] * (ABNORMAL) Protime-INR (08/11/2021 10:10 AM IDENTIFICATION TECHNICIAN) Pathologist [facility] PT 18.6(H) 9.5 - 13.6 sec [facility] ([place]) INR 1.7(H) 0.9 - 1.2 [facility] ([place]) Comment: Interpretive data Oral anticoagulant therapeutic ranges: Venous thromboembolism prophylaxis or treatment: 2.0-3.0 CARDIOLOGY Standard range: 2.0-3.0 High-intensity range: 2.5-3.5 Refer to indication-specific guidelines for appropriate target ranges for prosthetic heart valve replacement. Current interpretive data was last revised on 2019. Blood (Blood, Venous) 08/11/2021 10:10 AM IDENTIFICATION TECHNICIAN 08/11/2021 10:13 AM IDENTIFICATION TECHNICIAN Narrative [facility] ([place] - 08/11/2021 10:23 AM IDENTIFICATION TECHNICIAN Potential stroke patient. Juice Pineda MD LAB BLOOD ORDERABLES Final R esult [facility] ([place]) 1 [facility] Department [place] [address] * (ABNORMAL) CBC with auto differential (08/11/2021 10:10 AM IDENTIFICATION TECHNICIAN) Pathologist [facility] WBC 7.8 3.8 - 9.9 K/cumm [facility] ([place]) Hgb 11.4(L) 11.9 - 15.5 g/dL [facility] ([place]) Hct 35.8 35.6 - 45.5 % [facility] ([place]) Plt 330 150 - 400 K/cumm [facility] ([place]) MPV 10.1 9.1 - 12.3 fL [facility] ([place]) RBC 4.04 3.90 - 5.20 M/cumm [facility] ([place]) MCV 88.6 81.3 - 96.4 fL [facility] ([place]) MCH 28.2 27.1 - 33.3 pg [facility] ([place]) MCHC 31.8(L) 32.3 - 35.7 g/dL [facility] ([place]) RDW CV 15.3(H) 11.1 - 14.9 % [facility] ([place]) RDW SD 49.5(H) 35.7 - 48.1 fL [facility] ([place] NRBC abs 0.00 0.00 - 0.01 K/cumm [facility] ([place]) Blood (Blood, Venous) 08/11/2021 10:10 AM IDENTIFICATION TECHNICIAN 08/11/2021 10:13 AM IDENTIFICATION TECHNICIAN Narrative [facility] ([place]) - 08/11/2021 10:16 AM IDENTIFICATION TECHNICIAN Potential Stroke Patient us Juice Pineda MD LAB BLOOD ORDERABLES Final R esult [facility] ([place]) 1 [facility] Department [place] [address] * Basic metabolic panel (08/11/2021 10:10 AM IDENTIFICATION TECHNICIAN) Sodium 140 135 - 145 mmol/L [facility] ([place]) Potassium, pl 3.3 3.3 - 4.9 mmol/L [facility] ([place]) Chloride 103 97 - 110 mmol/L [facility] ([place]) CO2 27 22 - 32 mmol/L [facility]) Anion gap 10 2 - 15 mmol/L [facility] ([place]) BUN 12 8 - 25 mg/dL [facility] ([place]) Creatinine 0.71 0.60 - 1.10 mg/dL [facility] ([place]) Glucose 123 70 - 199 mg/dL [facility] ([place]) Comment: Interpretive Data Fasting glucose [...] 2017. Calcium 9.1 8.5 - 10.3 mg/dL [facility] ([place]) Blood 08/11/2021 10:1 0 AM IDENTIFICATION TECHNICIAN 08/11/2021 10:13 AM IDENTIFICATION TECHNICIAN Narrative [facility] ([place]) - 08/11/2021 10:34 AM IDENTIFICATION TECHNICIAN Potential Stroke patient. us Juice Pineda MD LAB BLOOD ORDERABLES Final R esult [facility] ([place]) 1 [facility] [employer] [place] [address] * (ABNORMAL) POCT glucose (08/11/2021 10:03 AM IDENTIFICATION TECHNICIAN) [facility] Signature Glucose, POC 117(H) 71 - 98 mg/dL [facility] ([place]) Blood 08/11/2021 10:0 3 AM IDENTIFICATION TECHNICIAN 08/11/2021 10:03 AM IDENTIFICATION TECHNICIAN us Notinfile Unknown LAB POCT ORDERABLES - DEVICE F inal Result Performing Organization Address City/[facility]/ZIP Co de Phone Number [facility] ([place]) 1 [facility] [place] [address] documented in this encounter Visit Diagnoses Diagnosis TIA (transient ischemic attack)- Primary Unspecified transient cerebral ischemia Cerebrovascular accident (CVA) due to embolism of precerebral artery (HCC) Abdominal pain, generalized Atrial fibrillation (CMS/HCC) (HCC) Atrial fibrillation Bipolar affect, depressed (HCC) Bipolar I disorder, most recent episode (or current) depressed, unspecified Essential tremor Hypertension Unspecified essential hypertension Irritable bowel syndrome with diarrhea Irritable bowel syndrome Dysuria Hiatal hernia Diaphragmatic hernia without mention of obstruction or gangrene Gastroesophageal reflux disease, unspecified whether esophagitis present documented in this encounter Admitting Diagnoses Diagnosis Cerebrovascular accident (CVA) due to embolism of precerebral artery (HCC) documented in this encounter Administered Medications Inactive Administered Medications - up to 3 most recent administrations Medication Order MAR Action Action Date Dose Rate Site aspirin suppository 300 mg 300 mg, rectal, Daily, First dose on 08/11/21 at 2044, If unable to tolerate PO, Indications: cerebral ischemia, Cerebral IschemiaIndications:cerebral ischemia,Cerebral Ischemia aspirin tablet 325 mg 325 mg, oral, Daily, First dose on Thu08/11/21 at 2045, Administer suppository per rectum if unable to tolerate PO., Indications: cerebral ischemia, Cerebral IschemiaIndications:cerebral ischemia,Cerebral Ischemia Given 08/13/2021 8:38 AM IDENTIFICATION TECHNICIAN 325 mg Given 08/12/2021 9:37 AM IDENTIFICATION TECHNICIAN 325 mg Given 08/11/2021 9:26 PM IDENTIFICATION TECHNICIAN 325 mg atorvastatin (LIPITOR) tablet 40 mg 40 mg, oral, Daily, First dose on 08/11/21 at 2100, Indications: hyperlipidemiaIndications:hyperlipidemia Given 08/12/2021 8:14 PM IDENTIFICATION TECHNICIAN 40 mg Given 08/11/2021 9:26 PM IDENTIFICATION TECHNICIAN 40 mg citalopram (CeleXA) tablet 10 mg 10 mg, oral, Daily, First dose on Thu08/12/21 at 0900, Indications: Anxiety with DepressionIndications:Anxiety with Depression Given 08/13/2021 8:3 8 AM IDENTIFICATION TECHNICIAN 10 mg Given 08/12/2021 9:38 AM IDENTIFICATION TECHNICIAN 10 mg dicyclomine (BENTYL) capsule 20 mg 20 mg, oral, 2 times daily, First dose on 08/11/21 at 2100 Given 08/13/2021 8:38 AM IDENTIFICATION TECHNICIAN 20 mg Given 08/12/2021 8:14 PM IDENTIFICATION TECHNICIAN 20 mg Given 08/12/2021 9:37 AM IDENTIFICATION TECHNICIAN 20 mg flecainide (TAMBOCOR) tablet 50 mg 50 mg, oral, 2 times daily, First dose on 08/11/21 at 2100 Given 08/13/2021 8:38 AM IDENTIFICATION TECHNICIAN 50 mg Given 08/12/2021 8:14 PM IDENTIFICATION TECHNICIAN 50 mg Given 08/12/2021 9:38 AM IDENTIFICATION TECHNICIAN 50 mg LORazepam (ATIVAN) injection 0.5 mg 0.5 mg, intravenous, Once, On Thu08/12/21 at 0845, For 1 dose, For IV administration, dilute with equal volume of 0.9% sodium chloride to a final concentration of 1 mg/mL. Do not exceed a rate of 2 mg/minute Given 08/12/2021 8:06 AM IDENTIFICATION TECHNICIAN 0.5 mg metoclopramide (REGLAN) tablet 10 mg 10 mg, oral, 3 times daily before meals, First dose on Thu08/12/21 at 0730, Indications: gastroesophageal reflux diseaseIndications:gastroesophageal reflux disease Given 08/12/2021 9:37 AM IDENTIFICATION TECHNICIAN 10 mg ondansetron (ZOFRAN) injection 4 mg 4 mg, intravenous, Administer over 2 Minutes, Once, On Thu08/11/21 at 1048, For 1 dose Given 08/11/2021 11:02 AM IDENTIFICATION TECHNICIAN 4 mg ondansetron (ZOFRAN) injection 4 mg 4 mg, intravenous, Administer over 2 Minutes, Every 6 hours PRN, nausea, Starting on Thu08/11/21 at 1053 Given 08/12/2021 8:14 PM IDENTIFICATION TECHNICIAN 4 mg Given 08/12/2021 7:20 AM IDENTIFICATION TECHNICIAN 4 mg Given 08/12/2021 1:12 AM IDENTIFICATION TECHNICIAN [address] (PROTONIX) extended release tablet 40 mg 40 mg, oral, Every 12 hours, First dose on Thu08/11/21 at 2100, Do not crush, chew, cut, dissolve, open or otherwise manipulate tablet/capsule., Indications: Stress Ulcer Prophylaxis, Cyclic vomiting syndrome, Intussusception intestineIndications:Stress Ulcer Prophylaxis,Cyclic vomiting syndrome, Intussusception intestine Given 08/13/2021 8:38 AM IDENTIFICATION TECHNICIAN 40 mg Given 08/12/2021 8:14 PM IDENTIFICATION TECHNICIAN 40 mg Given 08/12/2021 9:37 AM IDENTIFICATION TECHNICIAN 40 mg potassium chloride 40 mEq/520 mL in sodium chloride 0.9% (premix) 40 mEq 40 mEq, intravenous, at 130 mL/hr, Administer over 4 Hours, Every 4 hours, First dose on Thu08/13/21 at 0800, For 2 doses, Total dose = 80 mEq, Indications: hypokalemiaIndications:hypokalemia New Bag 08/13/2021 12:59 PM IDENTIFICATION TECHNICIAN 40 mE q 130 mL/hr New Bag 08/13/2021 8:38 AM IDENTIFICATION TECHNICIAN 40 mEq 130 mL/hr ramelteon (ROZEREM) tablet 8 mg 8 mg, oral, Nightly PRN, sleep, Starting on Thu08/12/21 at 1935, Indications: Sleep-Onset InsomniaIndications:Sleep-Onset Insomnia Given 08/12/2021 8:14 PM IDENTIFICATION TECHNICIAN 8 mg sodium chloride 0.9% infusion 125 mL/hr, intravenous, Continuous, Starting on 08/11/21 at 1054 New Bag 08/12/2021 3:05 AM IDENTIFICATION TECHNICIAN 125 mL/hr 125 mL/hr New Bag 08/11/2021 7:41 PM IDENTIFICATION TECHNICIAN 125 mL/hr 125 mL/hr New Bag 08/11/2021 11:26 AM IDENTIFICATION TECHNICIAN 125 mL/hr 125 mL/hr sulfamethoxazole-trimethoprim (BACTRIM DS) 800-160 mg per tablet 160 mg of trimethoprim 160 mg of trimethoprim, oral, 2 times daily, First dose on Thu08/13/21 at 1130, For 5 days, Indications: Urinary Tract/Genitourinary InfectionIndications:Urinary Tract/Genitourinary Infection Given 08/13/2021 12:59 PM IDENTIFICATION TECHNICIAN 160 mg of trimethoprim documented in this encounter Discontinued Medications Medication Sig Discontinue Reason Start Date End Da te ondansetron (ZOFRAN) 4 mg tablet Take 1 tablet (4 mg total) by mouth every 6 (six) hours Stop Taking at Discharge 01/25/2020 08/13/2021 metoclopramide (REGLAN) 10 mg tabletIndications:lubna roesophageal reflux disease Take 1 tablet (10 mg total) by mouth 3 (three) times a day before meals Stop Taking at Discharge 08/10/2021 08/13/2021 documented as of this encounter Historical Medications * This list may reflect changes made after this encounter. escitalopram (LEXAPRO) 10 mg tabletIndications :Anxiety with Depression Take 10 mg by mouth daily 10/29/2022 added in this encounter Active and Recently Administered Medications Times are shown in IDENTIFICATION TECHNICIAN. Scheduled Medication Order 08/11/2021 08/12/2021 08/13/2021 apixaban (ELIQUIS) tablet 5 mg 5 mg, oral, 2 times daily, First dose on 08/11/21 at 2100, Indications: atrial fibrillation, On hold since 08/11/2021 at 2019 until manually unheld 2018 (Held by Provider - Provider: [place] Huertas MD - Reason: Change in Patient Status)2099 (Dose Auto Held) 0900 (Dose Auto Held)2100 (Dose Auto Held) 0900 (Dose Auto Held)2000 (Unheld by Provider - Provider: Automatic Discharge Provider) aspirin suppository 300 mg(Linked Group 1) 300 mg, rectal, Daily, First dose on 08/11/21 at 2044, If unable to tolerate PO, Indications: cerebral ischemia, Cerebral Ischemia 2125 (See Alternative - Provider: Kassidy Vo RN) 0937 (See Alternative - Provider: May Caldwell RN) 0838 (See Alternative - Provider: May Caldwell RN) aspirin tablet 325 mg(Linked Group 1) 325 mg, oral, Daily, First dose on 08/11/21 at 2044, Administer suppository per rectum if unable to tolerate PO., Indications: cerebral ischemia, Cerebral Ischemia 2125 (Given - Provider: Kassidy Vo RN) 0937 (Given - Provider: May Caldwell RN) 0838 (Given - Provider: May Caldwell RN) atorvastatin (LIPITOR) tablet 40 mg 40 mg, oral, Daily, First dose on 08/11/21 at 2099, Indications: hyperlipidemia 2125 (Given - Provider: Kassidy Vo RN) 2013 (Given - Provider: Kassidy Vo RN) citalopram (CeleXA) tablet 10 mg 10 mg, oral, Daily, First dose on Thu08/12/21 at 0900, Indications: Anxiety with Depression 937 (Given - Provider: May Caldwell RN) 0838 (Given - Provider: May Caldwell RN) dicyclomine (BENTYL) capsule 20 mg 20 mg, oral, 2 times daily, First dose on 08/11/21 at 2099 2125 (Given - Provider: Kassidy Vo RN) 0937 (Given - Provider: May Caldwell RN)2013 (Given - Provider: Kassidy Vo RN) 0838 (Given - Provider: May Caldwell RN) flecainide (TAMBOCOR) tablet 50 mg 50 mg, oral, 2 times daily, First dose on 08/11/21 at 2099 2137 (Given - Provider: Kassidy Vo RN) 0938 (Given - Provider: May Caldwell RN)2013 (Given - Provider: Kassidy Vo RN) 0838 (Given - Provider: May Caldwell RN) LORazepam (ATIVAN) injection 0.5 mg (COMPLETED) 0.5 mg, intravenous, Once, On Thu08/12/21 at 0845, For 1 dose, For IV administration, dilute with equal volume of 0.9% sodium chloride to a final concentration of 1 mg/mL. Do not exceed a rate of 2 mg/minute 0806 (Given - Provider: May Caldwell, KIET) metoclopramide (REGLAN) tablet 10 mg (CANCELED) 10 mg, oral, 3 times daily before meals, First dose on Thu08/12/21 at 0730, Indications: gastroesophageal reflux disease 0937 (Given - Provider: May Caldwell, KIET)1922 (Not Given - Provider: Kassidy Vo, KIET - Reason: Order Discontinued) metoprolol XL (TOPROL-XL) extended release tablet 25 mg 25 mg, oral, Daily, First dose on Thu08/12/21 at 0900, Tablets that are scored may be split, but do not crush, chew, dissolve, open or otherwise manipulate tablet/capsule. 2018 (Held by Provider - Provider: North Huertas MD - Reason: Change in Patient Status) 0900 (Dose Auto Held) 0900 (Dose Auto Held)0942 (Unheld by Provider - Provider: Letha Rose MD) ondansetron (ZOFRAN) injection 4 mg (COMPLETED) 4 mg, intravenous, Administer over 2 Minutes, Once, On 08/11/21 at 1048, For 1 dose 1102 (Given - Provider: Emerald Gates RN) pantoprazole DR (PROTONIX) extended release tablet 40 mg 40 mg, oral, Every 12 hours, First dose on Thu08/11/21 at 2100, Do not crush, chew, cut, dissolve, open or otherwise manipulate tablet/capsule., Indications: Stress Ulcer Prophylaxis, Cyclic vomiting syndrome, Intussusception intestine 2126 (Given - Provider: Kassidy Vo, KIET) 936 (Given - Provider: May Caldwell, KIET)2013 (Given - Provider: Kassidy Vo, KIET) 0838 (Given - Provider: May Caldwell, KIET) potassium chloride 40 mEq/520 mL in sodium chloride 0.9% (premix) 40 mEq 40 mEq, intravenous, at 130 mL/hr, Administer over 4 Hours, Every 4 hours, First dose on Thu08/13/21 at 0800, For 2 doses, Total dose = 80 mEq, Indications: hypokalemia 0838 (New Bag - Provider: May Caldwell, KIET)1259 (New Bag - Provider: May Caldwell, RN) sulfamethoxazole-trimetho prim (BACTRIM DS) 800-160 mg per tablet 160 mg of trimethoprim 160 mg of trimethoprim, oral, 2 times daily, First dose on Thu08/13/21 at 1130, For 5 days, Indications: Urinary Tract/Genitourinary Infection 1259 (Given - Provider: May Caldwell, KIET) Continuous Medication Order 08/11/2021 08/12/2021 08/13/2021 sodium chloride 0.9% infusion (CANCELED) 125 mL/hr, intravenous, Continuous, Starting on Thu08/11/21 at 1054 1126 (New Bag - Provider: Funmi Leonard RN)1940 (Stopped - Provider: Kassidy Vo RN)194 (New Bag - Provider: Kassidy Vo RN) 030 (Stopped - Provider: Kassidy Vo, KIET)0305 (New Bag - Provider: Kassidy Vo, RN) PRN Medication Order 08/11/2021 08/12/2021 08/13/2021 ondansetron (ZOFRAN) injection 4 mg 4 mg, intravenous, Administer over 2 Minutes, Every 6 hours PRN, nausea, Starting on Thu08/11/21 at 1053 0112 (Given - Provider: Rodríguez Raymond RN)0720 (Given - Provider: Kassidy Vo, KIET)2013 (Given - Provider: Kassidy Vo, RN) ramelteon (ROZEREM) tablet 8 mg 8 mg, oral, Nightly PRN, sleep, Starting on Thu08/12/21 at 1935, Indications: Sleep-Onset Insomnia 2013 (Given - Provider: Rodríguez Raymond, KIET) Linked Groups Order Group 1: aspirin tablet 325 mgJump to med 325 mg, oral, Daily, First dose on Thu08/11/21 at 2045, Administer suppository per rectum if unable to tolerate PO., Indications: cerebral ischemia, Cerebral Ischemia Or aspirin suppository 300 mgJump to med 300 mg, rectal, Daily, First dose on 08/11/21 at 2045, If unable to tolerate PO, Indications: cerebral ischemia, Cerebral Ischemia documented in this encounter Orders Medications Ordered That Rg ht Not Have Been Administered Count Last Ordered Date First Ordered Date apixaban (ELIQUIS) tablet 5 mg 1 08/11/2021 aspirin suppository 300 mg 1 08/11/2021 metoprolol XL (TOPROL-XL) ex tended release tablet 25 mg 1 08/11/2021 Lab Orders Without Results Count Last Ordered D ate First Ordered Date POCT GLUCOSE DEVICE 1 08/11/2021 Diet Count Last Ordered Date First Orde red Date ADULT DISCHARGE DIET 1 08/13/2021 Nursing Count Last Ordered Date First Orde red Date DISCHARGE ACTIVITY 1 08/13/2021 DISCHARGE CALL PROVIDER 2 08/13/2021 CARDIORESPIRATORY MONITOR 1 08/11/2021 MISCELLANEOUS NURSING CARE ORDER (SPECIFY) 1 08/11/2021 NURSING SWALLOW ASSESSMENT 1 08/11/2021 WEIGH PATIENT 1 08/11/2021 Consult Count Last Ordered Date First Orde red Date IP CONSULT TO NUTRITION SERVICES 2 08/11/20 21 IV Count Last Ordered Date First Orde red Date SALINE LOCK IV 2 08/11/2021 CORE MEASURES Count Last Ordered Date First Ord ered Date REASON FOR NO VTE PROPHYLAXIS AT ADMISSION 2 08/11/2021 REASON FOR NOT ADMINISTERING ANTITHROMBOTIC THERAPY BY EOD 2 1 08/11/2021 REASON FOR NOT INITIATING IV THROMBOLYTIC 1 08/11/2021 ADT Patient Update Count Last Ordered Date Firs t Ordered Date ED IP DECISION TO ADMIT 1 08/11/2021 documented in this encounter Care Teams Filter Tank Tender Helper Head Relationship Specialty Start Date End Date Parmjit Dai MD PCP - General 12/31/20 Mere Landa NP Nurse Practitioner 02/07/20 Tico Burton MD Surgeon General Surgery 08/09/21 documented as of this encounter
--- OUTSIDE RECORDS SUMMARY | 2024-08-16 04:36 | XMS_ITS | Encounter Summary ---
Author Organization [facility] Healthcare Address [address] [place] [address] Care Team Providers Care Office Messenger Name Role Phone Unavailable Primary Care Provider Unavailabl e Encounter Details Date Type Department Care Team (Late st Contact Info) Description 09/04/2015 1:55 PM HELPER/DRIVER - 09/29/2016 1:55 PM HELPER/DRIVER Hospital Encounter [facility] Willi Macias MD [facility] [address] Social History Tobacco Use Types Packs/Day Years Used Date Smoking Tobacco: Never Assessed Comments Unknown Sex and Gender Information Value Date Recorded Sex Assigned at Not on file Legal Sex Female 10:06 AM HELPER/DRIVER Gender Identity Female 06/17/2024 7:02 AM CDT Sexual Orientation Not on file documented as of this encounter Plan of Treatment Upcoming Encounters Date Type Department Care Team (Latest Contact Info) Description 09/07/2024 8:30 AM HELPER/DRIVER Hospital Encounter [facility] [address] [place] [phone] Forest Catherine MD [address] [place] [address] 09/07/2024 8:30 AM HELPER/DRIVER - 09/07/2024 9:00 AM HELPER/DRIVER Surgery [facility] [address] [place] [phone] Forest Catherine MD [address] [place] [address] EGD w/Endo Flip & YI placement Scheduled Procedures Name Priority Associated Diagnoses Date/Ti me ESOPHAGOGASTRODUODENOSCOPY Hiatal hernia Gastroesophageal reflux disease, unspecified whether esophagitis present 09/07/2024 8:30 AM HELPER/DRIVER documented as of this encounter Visit Diagnoses Not on filedocumented in this encounter
--- OUTSIDE RECORDS SUMMARY | 2024-08-16 04:36 | XMS_ITS | Encounter Summary ---
Author Organization [facility] Healthcare Address [address] [place] [address] Care Team Providers Care Medical Oncologist Name Role Phone Unavailable Primary Care Provider Unavailabl e Encounter Details Date Type Department Care Team (Latest Contact Info) Description 09/12/2015 8:44 AM DATA MODELING ARCHITECT Hospital Encounter [facility] Sumit Bose MD [address] [address] Other specified disorders of kidney and ureter Social History Tobacco Use Types Packs/Day Years Used Date Smoking Tobacco: Never Assessed Comments Unknown Sex and Gender Information Value Date Recorded Sex Assigned at Not on file Legal Sex Female 10:06 AM DATA MODELING ARCHITECT Gender Identity Female 06/17/2024 7:02 AM CDT Sexual Orientation Not on file documented as of this encounter Plan of Treatment Upcoming Encounters Date Type Department Care Team (Latest Contact Info) Description 09/07/2024 8:30 AM DATA MODELING ARCHITECT Hospital Encounter [facility] [address] [place] [phone] Forest Catherine MD [address] [facility] [address] [place] [address] 09/07/2024 8:30 AM DATA MODELING ARCHITECT - 09/07/2024 9:00 AM DATA MODELING ARCHITECT Surgery [facility] [address] [place] [address], [place] [phone] Forest Catherine MD [address] [place] [address] EGD w/Endo Flip & YI placement Scheduled Procedures Name Priority Associated Diagnoses Date/Ti me ESOPHAGOGASTRODUODENOSCOPY Hiatal hernia Gastroesophageal reflux disease, unspecified whether esophagitis present 09/07/2024 8:30 AM DATA MODELING ARCHITECT documented as of this encounter Procedures Procedure Name Priority Date/Time Associated Diagnosis Comments CT ABDOMEN W WO CONTRAST Routine 09/12/2015 12:00 AM DATA MODELING ARCHITECT documented in this encounter Results * CT Abdomen W WO Contrast (09/12/2015 12:00 AM DATA MODELING ARCHITECT) Anatomical Region Laterality Modality Body N/A Computed Tomogra phy 09/12/2015 Narrative 09/12/2015 11:[address] scan of the abdomen with and without contrast History of renal mass seen on MRI. ??The exam is compared to MRI performed on 08/18/2015 TECHNIQUE: ??Pre and postcontrast imaging was performed The patient received 100 mL of Omnipaque 350 to the right AC without complication. Diagnosis Code N28.89 Findings: The lung bases are clear. Heart size is normal. No focal liver mass is present. ??Spleen is normal. Cholecystectomy changes are present. ??The abnormality on the recent MRI corresponds to a dilated carrie. ??This is benign. ??No concerning solid mass is present. ??There is no hydronephrosis present. The pancreas spleen are within normal limits. There is no adenopathy present. ??No free air noted. ??Diverticulosis is present. Impression Abnormality seen on recent MRI corresponds to a dilated renal carrie. ??No concerning solid mass is present. ??Cholecystectomy changes are present. Diverticulosis. THIS IS AN ELECTRONICALLY VERIFIED REPORT 09/12/2015 11:28 AM: ??Gabriel Lin M.D. Gabriel Lin M.D. NC:jaz 11:28 AM 11:28 AM [facility] [EOD] Procedure Note Provider, MD Rosanne - 01/14/2021 CT scan of the abdomen with and without contrast History of renal mass seen on MRI. The exam is compared to MRI performedon 08/18/2015 TECHNIQUE: Pre and postcontrast imaging was performed The patient received 100 mL of Omnipaque 350 to the right AC without complication. Diagnosis Code N28.89 Findings: The lung bases are clear. Heart size is normal. No focal liver mass is present. Spleen is normal. Cholecystectomy changes are present. The abnormality on the recent MRI corresponds to a dilated carrie. This is benign. No concerning solid massis present. There is no hydronephrosis present. The pancreas spleen are within normal limits. There is no adenopathy present. No free air noted. Diverticulosis ispresent. Impression Abnormality seen on recent MRI corresponds to a dilated renal carrie. No concerning solid mass is present. Cholecystectomy changes are present. Diverticulosis. THIS IS AN ELECTRONICALLY VERIFIED REPORT 09/12/2015 11:28 AM: Gabriel Lin M.D. Gabriel Lin M.D. NC:jaz 11:28 AM 11:28 AM [facility] [EOD] Sumit Bose MD IMG CT PROCEDURES Final Result documented in this encounter Visit Diagnoses Diagnosis Other specified disorders of kidney and ureter Hiatal hernia Diaphragmatic hernia without mention of obstruction or gangrene Gastroesophageal reflux disease, unspecified whether esophagitis present documented in this encounter
--- OUTSIDE RECORDS SUMMARY | 2024-08-16 04:36 | XMS_ITS | Encounter Summary ---
Author Organization [facility] Healthcare Address [address] [place] [address] Care Team Providers Care Purchasing Analyst Name Role Phone Unavailable Primary Care Provider Unavailabl e Encounter Details Date Type Department Care Team (Late st Contact Info) Description 12/12/2015 8:43 AM CDT - 12/12/2015 10:11 AM CDT Hospital Encounter [facility] Yue Gu, CORONER TRANSPORT TECHNICIAN [address] [facility] [address] [address] Cervicalgia Social History Tobacco Use Types Packs/Day Years Used Date Smoking Tobacco: Never Assessed Comments Unknown Sex and Gender Information Value Date Recorded Sex Assigned at Not on file Legal Sex Female 10:06 AM APPRENTICE CARPENTER Gender Identity Female 06/17/2024 7:02 AM CDT Sexual Orientation Not on file documented as of this encounter Last Filed Vital Signs Vital Sign Reading Time Taken Comments Blood Pressure 121/77 12/12/2015 9:02 AM CDT Pulse 70 12/12/2015 9:02 AM CDT Temperature 37 ??C (98.6 ??F) 12/12/2015 9:02 AM CDT Respiratory Rate - - Oxygen Saturation 99% 12/12/2015 9:02 AM CDT Inhaled Oxygen Concentration - - Weight 82.1 kg (181 lb) 12/12/2015 9:02 AM CDT Height 162.6 cm (5' 4 ) 12/12/2015 9:02 AM CDT Body Mass Index 31.07 12/12/2015 9:02 AM CDT documented in this encounter Plan of Treatment Upcoming Encounters Date Type Department Care Team (Latest Contact Info) Description 09/07/2024 8:30 AM APPRENTICE CARPENTER Hospital Encounter [facility] [address] [place] [phone] Forest Catherine MD [address] [address] 09/07/2024 8:30 AM APPRENTICE CARPENTER - 09/07/2024 9:00 AM APPRENTICE CARPENTER Surgery [facility] [address] [place] [phone] Forest Catherine MD [address] [address] EGD w/Endo Flip & YI placement Scheduled Procedures Name Priority Associated Diagnoses Date/Ti wy ESOPHAGOGASTRODUODENOSCOPY Hiatal hernia Gastroesophageal reflux disease, unspecified whether esophagitis present 09/07/2024 8:30 AM APPRENTICE CARPENTER documented as of this encounter Visit Diagnoses Diagnosis Cervicalgia Hiatal hernia Diaphragmatic hernia without mention of obstruction or gangrene Gastroesophageal reflux disease, unspecified whether esophagitis present documented in this encounter
--- OUTSIDE RECORDS SUMMARY | 2024-08-16 04:36 | XMS_ITS | Encounter Summary ---
Author Organization [facility] Healthcare Address [address] [place] [address] Care Team Providers Care Cytology Manager Name Role Phone Unavailable Primary Care Provider Unavailabl e Encounter Details Date Type Department Care Team (Late st Contact Info) Description 08/14/2015 10:09 AM TUBE BUFFER - 08/14/2015 11:12 AM TUBE BUFFER Hospital Encounter [facility] Yue Gu, BUSINESS DEVELOPMENT ASSISTANT [address] [facility] [address] [address] Low back pain; Cervicalgia Social History Tobacco Use Types Packs/Day Years Used Date Smoking Tobacco: Never Assessed Comments Unknown Sex and Gender Information Value Date Recorded Sex Assigned at Not on file Legal Sex Female 10:06 AM TUBE BUFFER Gender Identity Female 06/17/2024 7:02 AM CDT Sexual Orientation Not on file documented as of this encounter Last Filed Vital Signs Vital Sign Reading Time Taken Comments Blood Pressure 130/85 08/14/2015 10:37 AM TUBE BUFFER Pulse 83 08/14/2015 10:37 AM TUBE BUFFER Temperature 36.9 ??C (98.4 ??F) 08/14/2015 10:[address] Respiratory Rate - - Oxygen Saturation 96% 08/14/2015 10:37 AM TUBE BUFFER Inhaled Oxygen Concentration - - Weight 86.2 kg (190 lb) 08/14/2015 10:37 AM TUBE BUFFER Height 165.1 cm (5' 5 ) 08/14/2015 10:37 AM TUBE BUFFER Body Mass Index 31.62 08/14/2015 10:37 AM TUBE BUFFER documented in this encounter Plan of Treatment Upcoming Encounters Date Type Department Care Team (Latest Contact Info) Description 09/07/2024 8:30 AM TUBE BUFFER Hospital Encounter [facility] [address] [place] [phone] Forest Catherine MD [address] [address] 09/07/2024 8:30 AM TUBE BUFFER - 09/07/2024 9:00 AM TUBE BUFFER Surgery [facility] [address] [place] [phone] Forest Catherine MD [address] [address] EGD w/Endo Flip & YI placement Scheduled Procedures Name Priority Associated Diagnoses Date/Ti me ESOPHAGOGASTRODUODENOSCOPY Hiatal hernia Gastroesophageal reflux disease, unspecified whether esophagitis present 09/07/2024 8:30 AM TUBE BUFFER documented as of this encounter Visit Diagnoses Diagnosis Low back pain Lumbago Cervicalgia Hiatal hernia Diaphragmatic hernia without mention of obstruction or gangrene Gastroesophageal reflux disease, unspecified whether esophagitis present documented in this encounter
--- OUTSIDE RECORDS SUMMARY | 2024-08-16 04:36 | XMS_ITS | Encounter Summary ---
Author Organization [facility] Care Team Providers Care Bricklayer Sewer Name Role Phone Unavailable Primary Care Provider Unavailabl e Encounter Details Date Type Department Care Team (Late st Contact Info) Description 07/13/2012 9:58 AM GOODWILL AMBASSADOR - 07/13/2012 4:00 PM GOODWILL AMBASSADOR Hospital Encounter [facility] Forest Catherine MD [address] [place] [address] Cough; Vomiting alone; Procedure not carried out because of patient's decision Social History Tobacco Use Types Packs/Day Years Used Date Smoking Tobacco: Never Assessed Comments Unknown Sex and Gender Information Value Date Recorded Sex Assigned at Not on file Legal Sex Female 10:06 AM GOODWILL AMBASSADOR Gender Identity Female 06/17/2024 7:02 AM CDT Sexual Orientation Not on file documented as of this encounter Plan of Treatment Upcoming Encounters Date Type Department Care Team (Latest Contact Info) Description 09/07/2024 8:30 AM GOODWILL AMBASSADOR Hospital Encounter [facility] [address] [place] [phone] Forest Catherine MD [address] [place] [address] 09/07/2024 8:30 AM GOODWILL AMBASSADOR - 09/07/2024 9:00 AM GOODWILL AMBASSADOR Surgery [facility] [address] [place] [phone] Forest Catherine MD [address] [place] [address] EGD w/Endo Flip & YI placement Scheduled Procedures Name Priority Associated Diagnoses Date/Ti me ESOPHAGOGASTRODUODENOSCOPY Hiatal hernia Gastroesophageal reflux disease, unspecified whether esophagitis present 09/07/2024 8:30 AM GOODWILL AMBASSADOR documented as of this encounter Visit Diagnoses Diagnosis Cough Vomiting alone Procedure not carried out because of patient's decision Surgical or other procedure not carried out because of patient's decision Hiatal hernia Diaphragmatic hernia without mention of obstruction or gangrene Gastroesophageal reflux disease, unspecified whether esophagitis present documented in this encounter
--- OUTSIDE RECORDS SUMMARY | 2024-08-16 04:36 | XMS_ITS | Encounter Summary ---
Author Organization [facility] Healthcare Address [address] [place] [address] Care Team Providers Care Facility Sales And Admin Name Role Phone Unavailable Primary Care Provider Unavailabl e Encounter Details Date Type Department Care Team (Late st Contact Info) Description 02/24/2013 9:47 AM CDT - 02/24/2014 9:47 AM CDT Hospital Encounter [facility] Willi Macias MD [address] [address] Social History Tobacco Use Types Packs/Day Years Used Date Smoking Tobacco: Never Assessed Comments Unknown Sex and Gender Information Value Date Recorded Sex Assigned at Not on file Legal Sex Female 10:06 AM DIRT BIKE MECHANIC Gender Identity Female 06/17/2024 7:02 AM CDT Sexual Orientation Not on file documented as of this encounter Plan of Treatment Upcoming Encounters Date Type Department Care Team (Latest Contact Info) Description 09/07/2024 8:30 AM DIRT BIKE MECHANIC Hospital Encounter [facility] [address] [place] [phone] Forest Catherine MD [address] [place] [address] 09/07/2024 8:30 AM DIRT BIKE MECHANIC - 09/07/2024 9:00 AM DIRT BIKE MECHANIC Surgery [facility] [address] [place] [phone] Forest Catherine MD [address] [place] [address] EGD w/Endo Flip & YI placement Scheduled Procedures Name Priority Associated Diagnoses Date/Ti me ESOPHAGOGASTRODUODENOSCOPY Hiatal hernia Gastroesophageal reflux disease, unspecified whether esophagitis present 09/07/2024 8:30 AM DIRT BIKE MECHANIC documented as of this encounter Visit Diagnoses Not on filedocumented in this encounter
--- OUTSIDE RECORDS SUMMARY | 2024-08-16 04:36 | XMS_ITS | Encounter Summary ---
Author Organization [facility] Healthcare Address [address] [place] [address] Care Team Providers Care Grocery Store Courtesy Clerk Name Role Phone Unavailable Primary Care Provider Unavailabl e Encounter Details Date Type Department Care Team (Latest Contact Info) Description 09/10/2015 11:19 AM CHARGE MACHINE OPERATOR - 09/10/2015 12:24 PM CHARGE MACHINE OPERATOR Hospital Encounter [facility] Yue Gu, STEMHOLE BORER [address] [facility] [address] [address] Other intervertebral disc degeneration, lumbar region; Low back pain; Pain of left lower leg Social History Tobacco Use Types Packs/Day Years Used Date Smoking Tobacco: Never Assessed Comments Unknown Sex and Gender Information Value Date Recorded Sex Assigned at Not on file Legal Sex Female 10:06 AM CHARGE MACHINE OPERATOR Gender Identity Female 06/17/2024 7:02 AM CDT Sexual Orientation Not on file documented as of this encounter Last Filed Vital Signs Vital Sign Reading Time Taken Comments Blood Pressure 128/82 09/10/2015 11:34 AM CHARGE MACHINE OPERATOR Pulse 71 09/10/2015 11:34 AM CHARGE MACHINE OPERATOR Temperature 37.3 ??C (99.1 ??F) 09/10/2015 11:[address] Respiratory Rate - - Oxygen Saturation 97% 09/10/2015 11:34 AM CHARGE MACHINE OPERATOR Inhaled Oxygen Concentration - - Weight 85.9 kg (189 lb 6.4 oz) 09/10/2015 11:34 AM CHARGE MACHINE OPERATOR Height 162.6 cm (5' 4 ) 09/10/2015 11:34 AM CHARGE MACHINE OPERATOR Body Mass Index 32.51 09/10/2015 11:34 AM CHARGE MACHINE OPERATOR documented in this encounter Plan of Treatment Upcoming Encounters Date Type Department Care Team (Latest Contact Info) Description 09/07/2024 8:30 AM CHARGE MACHINE OPERATOR Hospital Encounter [facility] [address] [place] [phone] Forest Catherine MD [address] [address] 09/07/2024 8:30 AM CHARGE MACHINE OPERATOR - 09/07/2024 9:00 AM CHARGE MACHINE OPERATOR Surgery [facility] [address] [place] [phone] Forest Catherine MD [address] [address] EGD w/Endo Flip & YI placement Scheduled Procedures Name Priority Associated Diagnoses Date/Ti me ESOPHAGOGASTRODUODENOSCOPY Hiatal hernia Gastroesophageal reflux disease, unspecified whether esophagitis present 09/07/2024 8:30 AM CHARGE MACHINE OPERATOR documented as of this encounter Visit Diagnoses Diagnosis Other intervertebral disc degeneration, lumbar region Low back pain Lumbago Pain of left lower leg Hiatal hernia Diaphragmatic hernia without mention of obstruction or gangrene Gastroesophageal reflux disease, unspecified whether esophagitis present documented in this encounter
--- OUTSIDE RECORDS SUMMARY | 2024-08-16 04:36 | XMS_ITS | Encounter Summary ---
Author Organization [facility] Healthcare Address [address] [place] [address] Care Team Providers Care Insulation Sprayer Name Role Phone Unavailable Primary Care Provider Unavailabl e Encounter Details Date Type Department Care Team (Late st Contact Info) Description 08/22/2015 10:40 AM EMPLOYEE RELATIONS SPECIALIST Ancillary Procedure [facility] Outside Films Social History Tobacco Use Types Packs/Day Years Used Date Smoking Tobacco: Never Assessed Comments Unknown Sex and Gender Information Value Date Recorded Sex Assigned at Not on file Legal Sex Female 10:06 AM EMPLOYEE RELATIONS SPECIALIST Gender Identity Female 06/17/2024 7:02 AM CDT Sexual Orientation Not on file documented as of this encounter Plan of Treatment Upcoming Encounters Date Type Department Care Team (Latest Contact Info) Description 09/07/2024 8:30 AM EMPLOYEE RELATIONS SPECIALIST Hospital Encounter [facility] [address] [place] [phone] Forest Catherine MD [address] [address] 09/07/2024 8:30 AM EMPLOYEE RELATIONS SPECIALIST - 09/07/2024 9:00 AM EMPLOYEE RELATIONS SPECIALIST Surgery [facility] [address] [place] [phone] Forest Catherine MD [address] [address] EGD w/Endo Flip & YI placement Scheduled Procedures Name Priority Associated Diagnoses Date/Ti me ESOPHAGOGASTRODUODENOSCOPY Hiatal hernia Gastroesophageal reflux disease, unspecified whether esophagitis present 09/07/2024 8:30 AM EMPLOYEE RELATIONS SPECIALIST documented as of this encounter Procedures Procedure Name Priority Date/Time Associated Diagnosis Comments BREAST IMAGING OUTSIDE REFERENCE Routine 08/22/2015 10:40 AM EMPLOYEE RELATIONS SPECIALIST documented in this encounter Results * Breast Imaging Outside Reference (08/22/2015 10:40 AM EMPLOYEE RELATIONS SPECIALIST) Narrative [facility] - 05/30/2022 9:52 AM CDT This order has been auto-finalized and does not contain a result. us Not In File Miscellaneous IMG MAMMO PROCEDURES F inal Result [facility] documented in this encounter Visit Diagnoses Not on filedocumented in this encounter
--- OUTSIDE RECORDS SUMMARY | 2024-08-16 04:36 | XMS_ITS | Encounter Summary ---
Author Organization [facility] Care Team Providers Care Kerfer Machine Operator Name Role Phone Unavailable Primary Care Provider Unavailabl e Encounter Details Date Type Department Care Team (Late st Contact Info) Description 09/04/2009 2:00 PM FOOD PRODUCTION MACHINE OPERATOR - 08/30/2010 11:59 PM FOOD PRODUCTION MACHINE OPERATOR Hospital Encounter [facility] Shira Cooper MD [address] [place] [phone] Social History Tobacco Use Types Packs/Day Years Used Date Smoking Tobacco: Never Assessed Comments Unknown Sex and Gender Information Value Date Recorded Sex Assigned at Not on file Legal Sex Female 10:06 AM FOOD PRODUCTION MACHINE OPERATOR Gender Identity Female 06/17/2024 7:02 AM CDT Sexual Orientation Not on file documented as of this encounter Plan of Treatment Upcoming Encounters Date Type Department Care Team (Latest Contact Info) Description 09/07/2024 8:30 AM FOOD PRODUCTION MACHINE OPERATOR Hospital Encounter [facility] [address] [place] [phone] Forest Catherine MD [address] [facility] [address] [place] [address] 09/07/2024 8:30 AM FOOD PRODUCTION MACHINE OPERATOR - 09/07/2024 9:00 AM FOOD PRODUCTION MACHINE OPERATOR Surgery [facility] [address] [place] [phone] Forest Catherine MD [address] [place] [address] EGD w/Endo Flip & YI placement Scheduled Procedures Name Priority Associated Diagnoses Date/Ti co ESOPHAGOGASTRODUODENOSCOPY Hiatal hernia Gastroesophageal reflux disease, unspecified whether esophagitis present 09/07/2024 8:30 AM FOOD PRODUCTION MACHINE OPERATOR documented as of this encounter Visit Diagnoses Not on filedocumented in this encounter
--- OUTSIDE RECORDS SUMMARY | 2024-08-16 04:36 | XMS_ITS | Encounter Summary ---
Author Organization [facility] Medical Group Address [address] [facility] [address] [place] [address] Care Team Providers Care Hose Stripper Name Role Phone Sumit Bose MD Primary Care Provider Encounter Details Date Type Department Care Team (Late st Contact Info) Description 11/30/2017 Telephone [place] [address] [place] [address] [place] [phone] Juancarlos Toribio RN Social History Tobacco Use Types Packs/Day Years Used Date Smoking Tobacco: Never Assessed Comments Unknown Sex and Gender Information Value Date Recorded Sex Assigned at Not on file Legal Sex Female 10:06 AM QUARTZ MOUNTER Gender Identity Female 06/17/2024 7:02 AM CDT Sexual Orientation Not on file documented as of this encounter Miscellaneous Notes * Telephone Encounter - Juancarlos Navarro MA - 11/30/2017 10:39 AM CDT Left 3rd message for pt to call back. Referral for o/v from Dr. Lucero's office. Fakierra Lucero making office aware, have not been able to contact pt. documented in this encounter Plan of Treatment Upcoming Encounters Date Type Department Care Team (Latest Contact Info) Description 09/07/2024 8:30 AM QUARTZ MOUNTER Hospital Encounter [facility] [address] [place] [phone] Forest Catherine MD [address] [place] [address] 09/07/2024 8:30 AM QUARTZ MOUNTER - 09/07/2024 9:00 AM QUARTZ MOUNTER Surgery [facility] [address] [place] [phone] Forest Catherine MD [address] [place] [address] EGD w/Endo Flip & YI placement Scheduled Procedures Name Priority Associated Diagnoses Date/Ti me ESOPHAGOGASTRODUODENOSCOPY Hiatal hernia Gastroesophageal reflux disease, unspecified whether esophagitis present 09/07/2024 8:30 AM QUARTZ MOUNTER documented as of this encounter Visit Diagnoses Not on filedocumented in this encounter Care Teams Hose Stripper Relationship Specialty Start Date End Date Sumit Bose MD [address] [facility] [address] [place] [address] PCP - General Gastroenterology 04/15/17 10/11/18 documented as of this encounter
--- OUTSIDE RECORDS SUMMARY | 2024-08-16 04:36 | XMS_ITS | Encounter Summary ---
Author Organization [facility] Healthcare Address [address] [place] [address] Care Team Providers Care Lining Mechanic Name Role Phone Unavailable Primary Care Provider Unavailabl e Encounter Details Date Type Department Care Team (Latest Contact Info) Description 08/18/2015 10:11 AM WEB ENGINEER Hospital Encounter [facility] Willi Macias MD [facility] [place] [phone] Low back pain; Other intervertebral disc degeneration, lumbar region Social History Tobacco Use Types Packs/Day Years Used Date Smoking Tobacco: Never Assessed Comments Unknown Sex and Gender Information Value Date Recorded Sex Assigned at Not on file Legal Sex Female 10:06 AM WEB ENGINEER Gender Identity Female 06/17/2024 7:02 AM CDT Sexual Orientation Not on file documented as of this encounter Plan of Treatment Upcoming Encounters Date Type Department Care Team (Latest Contact Info) Description 09/07/2024 8:30 AM WEB ENGINEER Hospital Encounter [facility] [address] [place] [phone] Forest Catherine MD [address] [place] [address] 09/07/2024 8:30 AM WEB ENGINEER - 09/07/2024 9:00 AM WEB ENGINEER Surgery [facility] [address] [place] [phone] Forest Catherine MD [address] [place] [address] EGD w/Endo Flip & YI placement Scheduled Procedures Name Priority Associated Diagnoses Date/Ti me ESOPHAGOGASTRODUODENOSCOPY Hiatal hernia Gastroesophageal reflux disease, unspecified whether esophagitis present 09/07/2024 8:30 AM WEB ENGINEER documented as of this encounter Procedures Procedure Name Priority Date/Time Associated Diagnosis Comments MRI LUMBAR SPINE WO CONTRAST Routine 08/18/2015 10:45 AM WEB ENGINEER XR SPINE LUMBAR 2 OR 3 VIEWS Routine 08/18/2015 10:14 AM WEB ENGINEER documented in this encounter Results * MRI Lumbar Spine WO Contrast (08/18/2015 10:45 AM WEB ENGINEER) Anatomical Region Laterality Modality Spine N/A Magnetic Resonan ce 08/18/2015 10:4 5 AM WEB ENGINEER Impressions 08/20/2015 8:39 AM WEB ENGINEER ?? Degenerative disc and joint disease at L4-5 and L5-S1 as detailed. 1.7 cm irregularly marginated lesion in the superior pole the right kidney is indeterminate. ??Recommend further evaluation with renal mass protocol CT. THIS IS AN ELECTRONICALLY VERIFIED REPORT 08/20/2015 8:36 AM: ??Mandeep Jarvis M.D. Mandeep Jarvis M.D. DS:ds 08:36 AM 08:36 AM BM [EOD] Narrative 08/20/2015 8:39 AM WEB ENGINEER EXAMINATION: ??Lumbar spine MRI without contrast HISTORY: ??Low back pain for 10 years TECHNIQUE: ??Sagittal and axial T1 and T2-weighted images and spine were performed without contrast. COMPARISON: ??Lumbar radiograph 08/18/2015 FINDINGS: ??5 lumbar type vertebral bodies are assumed for the purposes of this dictation. ??Very subtle mild dextroconvex lumbar curvature. ??There is normal lumbar lordosis. ??No abnormalities of alignment are identified. ??The vertebral body heights are maintained. ??Small benign osseous hemangioma in L1. The distal cord and conus medullaris have a normal caliber and morphology. ?? The conus terminates at the upper L2 level. ??No abnormal cord signal is noted. 1.7 cm T2 hyperintense lesion in the right superior renal pole. Findings on a level by level basis: T12-L1 thru L3-4: Normal L4-5: Mild facet arthropathy. ??Mild disc desiccation. ??Broad-based right paracentral disc protrusion, and mild diffuse asymmetric right disc bulge. ?? Mild to moderate right subarticular and foraminal stenosis. ??Minimal spinal and left foraminal stenosis. L5-S1:Mild facet arthropathy. ??Mild disc desiccation. ??Small broad-based left paracentral disc protrusion minimally effacing the left S1 nerve root sleeve. Mild left subarticular and foraminal stenosis. ??No central spinal or right foraminal stenosis. Procedure Note Provider, MD Rosanne - 01/14/2021 EXAMINATION: Lumbar spine MRI without contrast HISTORY: Low back pain for 10 years TECHNIQUE: Sagittal and axial T1 and T2-weighted images and spine were performed without contrast. COMPARISON: Lumbar radiograph 08/18/2015 FINDINGS: 5 lumbar type vertebral bodies are assumed for the purposes ofthis dictation. Very subtle mild dextroconvex lumbar curvature. There isnormal lumbar lordosis. No abnormalities of alignment are identified. Thevertebral body heights are maintained. Small benign osseous hemangioma in L1. The distal cord and conus medullaris have a normal caliber and morphology. The conus terminates at the upper L2 level. No abnormal cord signal isnoted. 1.7 cm T2 hyperintense lesion in the right superior renal pole. Findings on a level by level basis: T12-L1 thru L3-4: Normal L4-5: Mild facet arthropathy. Mild disc desiccation. Broad-based right paracentral disc protrusion, and mild diffuse asymmetric right disc bulge. Mild to moderate right subarticular and foraminal stenosis. Minimalspinal and left foraminal stenosis. L5-S1:Mild facet arthropathy. Mild disc desiccation. Small broad-basedleft paracentral disc protrusion minimally effacing the left S1 nerve rootsleeve. Mild left subarticular and foraminal stenosis. No central spinal or right foraminal stenosis. IMPRESSION: Degenerative disc and joint disease at L4-5 and L5-S1 as detailed. 1.7 cm irregularly marginated lesion in the superior pole the right kidneyis indeterminate. Recommend further evaluation with renal mass protocol CT. THIS IS AN ELECTRONICALLY VERIFIED REPORT 08/20/2015 8:36 AM: Mandeep Jarvis M.D. Mandeep Jarvis M.D. DS:nanda 08:36 AM 08:36 AM [facility] [EOD] Willi Macias MD IMG MRI PROCEDURES Final Result * XR Spine Lumbar 2 or 3 Views (08/18/2015 10:14 AM WEB ENGINEER) Anatomical Region Laterality Modality Spine N/A Radiographic Chiquita ging 08/18/2015 10:1 4 AM WEB ENGINEER Impressions 08/18/2015 10:39 AM WEB ENGINEER ?? 1. ??No evidence of acute fracture or spondylolisthesis in the lumbar spine. 2. ??Minimal degenerative disc disease and facet arthropathy at L5-S1. THIS IS AN ELECTRONICALLY VERIFIED REPORT 08/18/2015 10:35 AM: ??Sterling Reece M.D. Sterling Reece M.D. AB: 10:35 AM 10:35 AM BM [EOD] Narrative 08/18/2015 10:39 AM WEB ENGINEER EXAMINATION: ??Lumbar spine series. HISTORY: ??Lower back pain for 10 years. TECHNIQUE: ??3 views of the lumbar spine. COMPARISON: ??None. FINDINGS: ??There are 5 non-rib bearing lumbar type vertebral bodies. ??The vertebral body heights are preserved. ??There is minimal disc height loss at L5-S1. ??There are tiny marginal paravertebral osteophytes. ??There is mild facet arthropathy N L5-S1. ??The visualized bony pelvis is intact. ??The sacroiliac joints are unremarkable. ??Surgical clips project over the right upper quadrant. Procedure Note Provider, MD Rosanne - 01/14/2021 EXAMINATION: Lumbar spine series. HISTORY: Lower back pain for 10 years. TECHNIQUE: 3 views of the lumbar spine. COMPARISON: None. FINDINGS: There are 5 non-rib bearing lumbar type vertebral bodies. The vertebral body heights are preserved. There is minimal disc height lossat L5-S1. There are tiny marginal paravertebral osteophytes. There is mild facet arthropathy N L5-S1. The visualized bony pelvis is intact. The sacroiliac joints are unremarkable. Surgical clips project over the right upper quadrant. IMPRESSION: 1. No evidence of acute fracture or spondylolisthesis in the lumbarspine. 2. Minimal degenerative disc disease and facet arthropathy at L5-S1. THIS IS AN ELECTRONICALLY VERIFIED REPORT 08/18/2015 10:35 AM: Sterling Reece M.D. Sterling Reece M.D. AB: 10:35 AM 10:35 AM [facility] [EOD] Yue [place] [employer] DEFENSE CREWMEMBER IMG XR PROCEDURES Final Res ult documented in this encounter Visit Diagnoses Diagnosis Low back pain Lumbago Other intervertebral disc degeneration, lumbar region Hiatal hernia Diaphragmatic hernia without mention of obstruction or gangrene Gastroesophageal reflux disease, unspecified whether esophagitis present documented in this encounter
--- OUTSIDE RECORDS SUMMARY | 2024-08-16 04:36 | XMS_ITS | Encounter Summary ---
Author Organization [facility] Healthcare Address [address] [place] [address] Care Team Providers Care Nuclear Criticality Safety Engineer Name Role Phone Unavailable Primary Care Provider Unavailabl e Encounter Details Date Type Department Care Team (Latest Contact Info) Description 12/20/2015 2:37 PM CDT - 12/20/2015 4:32 PM CDT Hospital Encounter [facility] Willi Macias MD [facility] [place] [address] Spondylosis of cervical region without myelopathy or radiculopathy; Cervicalgia; Pain in left shoulder; Bipolar disorder (CMS/HCC) Social History Tobacco Use Types Packs/Day Years Used Date Smoking Tobacco: Never Assessed Comments Unknown Sex and Gender Information Value Date Recorded Sex Assigned at Not on file Legal Sex Female 10:06 AM RUBBER FLAP TUBER MACHINE OPERATOR Gender Identity Female 06/17/2024 7:02 AM CDT Sexual Orientation Not on file documented as of this encounter Last Filed Vital Signs Vital Sign Reading Time Taken Comments Blood Pressure 107/72 12/20/2015 2:51 PM CDT Pulse 75 12/20/2015 2:51 PM CDT Temperature 36.8 ??C (98.3 ??F) 12/20/2015 2:51 PM CD T Respiratory Rate - - Oxygen Saturation 98% 12/20/2015 2:51 PM CDT Inhaled Oxygen Concentration - - Weight - - Height - - Body Mass Index - - documented in this encounter Plan of Treatment Upcoming Encounters Date Type Department Care Team (Latest Contact Info) Description 09/07/2024 8:30 AM RUBBER FLAP TUBER MACHINE OPERATOR Hospital Encounter [facility] [address] [place] [phone] Forest Catherine MD [address] [address] 09/07/2024 8:30 AM RUBBER FLAP TUBER MACHINE OPERATOR - 09/07/2024 9:00 AM RUBBER FLAP TUBER MACHINE OPERATOR Surgery [facility] [address] [place] [phone] Forest Catherine MD [address] [address] EGD w/Endo Flip & YI placement Scheduled Procedures Name Priority Associated Diagnoses Date/Ti az ESOPHAGOGASTRODUODENOSCOPY Hiatal hernia Gastroesophageal reflux disease, unspecified whether esophagitis present 09/07/2024 8:30 AM RUBBER FLAP TUBER MACHINE OPERATOR documented as of this encounter Visit Diagnoses Diagnosis Spondylosis of cervical region without myelopathy or radiculopathy Cervicalgia Pain in left shoulder Bipolar disorder (HCC) Bipolar disorder, unspecified Hiatal hernia Diaphragmatic hernia without mention of obstruction or gangrene Gastroesophageal reflux disease, unspecified whether esophagitis present documented in this encounter
--- OUTSIDE RECORDS SUMMARY | 2024-08-16 04:36 | XMS_ITS | Encounter Summary ---
Author Organization [facility] Address [address] [place] [address] Care Team Providers Care Translator/Interpreter Name Role Phone Sumit Bose MD Primary Care Provider Reason for Visit * Reason Comments Weight Loss over 3 years 220#, n o appetite, EGD and colonoscopy late 2016; Hospitalized in November, dx stomach inf and colitits Encounter Details Date Type Department Care Team (Latest Contact Info) Description 02/23/2018 3:15 PM CDT Office Visit [facility] Gastroenterology at [address] [place] [address] Mandeep Fountain MD [address] [place] [address] [address] [place] [address] Irritable bowel syndrome with diarrhea (Primary Dx) [...] on file Legal Sex Female 10:06 AM KNITTER MACHINE Gender Identity Female 06/17/2024 7:02 AM CDT Sexual Orientation Not on file documented as of this encounter Last Filed Vital Signs Vital Sign Reading Time Taken Comments Blood Pressure 104/66 02/23/2018 3:42 PM CDT Pulse 62 02/23/2018 3:42 PM CDT Temperature 36.8 ??C (98.2 ??F) 02/23/2018 3:42 PM CD T Respiratory Rate - - Oxygen Saturation - - Inhaled Oxygen Concentration - - Weight 65.2 kg (143 lb 12.8 oz) 02/23/2018 3:42 PM CDT Height 163.8 cm (5' 4.5 ) 02/23/2018 3:42 PM CDT Body Mass Index 24.3 02/23/2018 3:42 PM CDT documented in this encounter Patient Instructions * Patient Instructions* Mandeep Fountain MD - 02/23/2018 3:15 PM CDT retur n after we go over the data from prior workups documented in this encounter Progress Notes * Mandeep Fountain MD - 02/23/2018 3:15 PM CDT Subjective/Objective Patient ID: Sarahy Navarrete is a 47 y.o. female. Chief Complaint Weight Loss (over 3 years 220#, no appetite, EGD and colonoscopy late 2016; Hospitalized in November, dx stomach inf and colitits) Years of abd pain assoc with abnormal bowel function. Review of Systems Constitutional: Negative for appetite change, fatigue and unexpected weight change. HENT: Negative for dental problem, sore throat and trouble swallowing. Eyes: Negative for photophobia. Respiratory: Negative for shortness of breath and wheezing. Cardiovascular: Negative for chest pain, palpitations and leg swelling. Gastrointestinal: Negative for abdominal pain, blood in stool, constipation, diarrhea, nausea, rectal pain and vomiting. Endocrine: Negative. [...] this visit: Irritable bowel syndrome with diarrhea (Primary) Assessment & Plan: Many years of epi and diffuse abd pain often pc assoc with D. No blood. Has had 2 CT scans, 4 EGDs and 2 colonoscopies. Has been told colitis on basis of CT. Has been treated unsuccesssfully with acid reducers and gluten abstinence. Viberzi was offered but insurance wouldn't pay. My feeling is probably ibs-d. Will get all the records from [place] and then regroup to discuss possible treatment options. documented in this encounter Miscellaneous Notes * Assessment & Plan Note - Mandeep Fountain MD - 02/23/2018 4:07 PM CDT Associated Problem(s): Irritable bowel syndrome with both constipation and diarrhea Many years of epi and diffuse abd pain often pc assoc with D. No blood. Has had 2 CT scans, 4 EGDs and 2 colonoscopies. Has been told colitis on basis of CT. Has been treated unsuccesssfully with acid reducers and gluten abstinence. Viberzi was offered but insurance wouldn't pay. My feeling is probably ibs-d. Will get all the records from [place] and then regroup to discuss possible treatment options. documented in this encounter Plan of Treatment Upcoming Encounters Date Type Department Care Team (Latest Contact Info) Description 09/07/2024 8:30 AM KNITTER MACHINE Hospital Encounter [facility] [address] [place] [phone] Forest Catherine MD [address] [place] [address] 09/07/2024 8:30 AM KNITTER MACHINE - 09/07/2024 9:00 AM KNITTER MACHINE Surgery [facility] [address] [place] [phone] Forest Catherine MD [address] [place] [address] EGD w/Endo Flip & YI placement Scheduled Procedures Name Priority Associated Diagnoses Date/Ti me ESOPHAGOGASTRODUODENOSCOPY Hiatal hernia Gastroesophageal reflux disease, unspecified whether esophagitis present 09/07/2024 8:30 AM KNITTER MACHINE documented as of this encounter Visit Diagnoses Diagnosis Irritable bowel syndrome with diarrhea- Primary Irritable bowel syndrome Hiatal hernia Diaphragmatic hernia without mention of obstruction or gangrene Gastroesophageal reflux disease, unspecified whether esophagitis present documented in this encounter Historical Medications * This list may reflect changes made after this encounter. calcium carbonate-mag hydroxid 400-135 mg/5 mL suspension Take by mouth 4 (four) times a day. 08/09/2021 naproxen (ANAPROX,ALEVE) 220 mg tablet Take by mouth as needed for pain. 08/09/2021 SUMAtriptan (IMITREX) 50 mg tabletIndication s:Migraine Take 1 tablet (50 mg total) by mouth once as needed for migraine May repeat dose once in 2 hours if no relief. Do not exceed 2 doses in 24 hours. 11/13/2023 clonazePAM (KlonoPIN) 0.5 mg tabletIndication s:Panic Disorder Take 0.5 mg by mouth as needed for anxiety. 08/09/2021 divalproex ER (DEPAKOTE ER) 500 mg 24 hr tabletIndication s:Bipolar Disorder Take 500 mg by mouth daily. 08/09/2021 busPIRone (BUSPAR) 15 mg tabletIndication s:Generalized Anxiety Disorder Take 15 mg by mouth 2 (two) times a day. 08/09/2021 desvenlafaxine 50 mg tablet extended release 24hrIndications: major depressive disorder Take 50 mg by mouth daily. 08/09/2021 added in this encounter Care Teams Translator/Interpreter Relationship Specialty Start Date End Date Sumit Bose MD [address] [facility] [address] [place] [address] PCP - General Gastroenterology 04/15/17 10/11/18 documented as of this encounter
--- OUTSIDE RECORDS SUMMARY | 2024-08-16 04:36 | XMS_ITS | Encounter Summary ---
Author Organization [facility] Address [address] [place] [address] Care Team Providers Care Hosted Services Analyst Name Role Phone Unavailable Primary Care Provider Unavailabl e Encounter Details Date Type Department Care Team (Late st Contact Info) Description 08/15/2011 4:31 PM OFFICE SPECIALIST - 08/15/2011 11:59 PM OFFICE SPECIALIST Hospital Encounter [facility] Other depressive disorder Social History Tobacco Use Types Packs/Day Years Used Date Smoking Tobacco: Never Assessed Comments Unknown Sex and Gender Information Value Date Recorded Sex Assigned at Not on file Legal Sex Female 10:06 AM OFFICE SPECIALIST Gender Identity Female 06/17/2024 7:02 AM CDT Sexual Orientation Not on file documented as of this encounter Plan of Treatment Upcoming Encounters Date Type Department Care Team (Latest Contact Info) Description 09/07/2024 8:30 AM OFFICE SPECIALIST Hospital Encounter [facility] [address] [place] [phone] Forest Catherine MD [address] [address] 09/07/2024 8:30 AM OFFICE SPECIALIST - 09/07/2024 9:00 AM OFFICE SPECIALIST Surgery [facility] [address] [place] [phone] Forest Catherine MD [address] [address] EGD w/Endo Flip & YI placement Scheduled Procedures Name Priority Associated Diagnoses Date/Ti me ESOPHAGOGASTRODUODENOSCOPY Hiatal hernia Gastroesophageal reflux disease, unspecified whether esophagitis present 09/07/2024 8:30 AM OFFICE SPECIALIST documented as of this encounter Visit Diagnoses Diagnosis Other depressive disorder Hiatal hernia Diaphragmatic hernia without mention of obstruction or gangrene Gastroesophageal reflux disease, unspecified whether esophagitis present documented in this encounter
--- OUTSIDE RECORDS SUMMARY | 2024-08-16 04:36 | XMS_ITS | Encounter Summary ---
Author Organization [facility] Address [address] [place] [address] Care Team Providers Care Child & Adolescent Psychiatrist Name Role Phone Sumit Bose MD Primary Care Provider Encounter Details Date Type Department Care Team (Late st Contact Info) Description 11/23/2017 Telephone [place] [address] [place] [phone] Juancarlos Toribio, RN Social History Tobacco Use Types Packs/Day Years Used Date Smoking Tobacco: Never Assessed Comments Unknown Sex and Gender Information Value Date Recorded Sex Assigned at Not on file Legal Sex Female 10:06 AM INTERMODAL DISPATCHER Gender Identity Female 06/17/2024 7:02 AM CDT Sexual Orientation Not on file documented as of this encounter Miscellaneous Notes * Telephone Encounter - Juancarlos Navarro MA - 11/23/2017 9:19 AM CDT Left message for patient to call back to schedule o/v w/ Dr. Fountain, per referral from pt PCP, Dr. Lucero. - 11/03/17 @ 11:51 - 11/23/16 @ 0917 documented in this encounter Plan of Treatment Upcoming Encounters Date Type Department Care Team (Latest Contact Info) Description 09/07/2024 8:30 AM INTERMODAL DISPATCHER Hospital Encounter [facility] [address] [place] [phone] Forest Catherine MD [address] [address] 09/07/2024 8:30 AM INTERMODAL DISPATCHER - 09/07/2024 9:00 AM INTERMODAL DISPATCHER Surgery [facility] [address] [place] [phone] Forest Catherine MD [address] [address] EGD w/Endo Flip & YI placement Scheduled Procedures Name Priority Associated Diagnoses Date/Ti me ESOPHAGOGASTRODUODENOSCOPY Hiatal hernia Gastroesophageal reflux disease, unspecified whether esophagitis present 09/07/2024 8:30 AM INTERMODAL DISPATCHER documented as of this encounter Visit Diagnoses Not on filedocumented in this encounter Care Teams Child & Adolescent Psychiatrist Relationship Specialty Start Date End Date Sumit Bose MD [address] [address] PCP - General Gastroenterology 04/15/17 10/11/18 documented as of this encounter
== END 2024-08-12 16:16 | disposition home or self-care (01) ==
LOC: ANHLAB 16:16
PROVIDERS: PCP Internal Medicine; Visit Provider Nurse Practitioner
DX: R19.7 Diarrhea, unspecified (principal)
CPT/HCPCS: 87045; 87177; 87209; 87427; 87449; 87493; 89055

== ENCOUNTER 2024-10-11 03:32 | Emergency (ER) | payer OTHER, MEDICARE, SELFPAY ==
--- NOTE | ~2024-10-11 | CT_ITS ---
EXAMINATION: CT abdomen pelvis w con DATE: 10/11/2024 11:44 INDICATION: Abdominal pain. Nausea and vomiting. TECHNIQUE: Computed tomography (CT) of the abdomen and pelvis was performed with 100 mL Omnipaque 350 intravenous contrast. Automated exposure control and iterative reconstruction technique were employe d. The dose-length product was 291.06 mGy-cm. COMPARISON: CT abdomen and pelvis 07/30/2024 FINDINGS: The visualized portions of lung bases are clear without pneumonia or pleural effusion. The heart size is normal. No pericardial effusion. Calcifications in the liver consistent with old granul omatous disease. There are changes of cholecystectomy. The spleen, pancreas, and adrenal glands are n ormal. There are cysts in the kidneys measuring up to 15 mm on the right. There are no dilated loops of bowel. There are changes of appendectomy. There are no pathologically enlarged lymph nodes. There is no free intraperitoneal fluid. There is lumbar dextroscoliosis and mild spondylosis. IMPRESSION: 1. No etiology for the patient's symptoms. Reviewed, dictated and finalized at location A. NCIAL ECONOMIST
--- OUTSIDE RECORDS SUMMARY | 2024-10-11 03:36 | XMS_ITS | Clinical Summary ---
Author Organization [facility] [employer] Address [address] [place] [address] Care Team Providers Care Recruitment And Outreach Assistant Name Role Phone Mandeep Pennington DO Primary Care Provider [phone] Source Comments [facility] [employer],non-owned Affiliates and Associated Physician Practices is amultiple site organization consisting of ambulatory clinics and hospital sitesin [place], [place], [place] and [place]. This disclosure is being madepursuant to the Care Everywhere program and may not contain all information available regarding this patient. Last updated 18.[facility] [employer] Allergies Active Allergy Reactions Criticality Noted Date [...] this non-inflammatory hypersensitivity pain disorder. Sarahy Cardenas Jairo was provided additional written information regarding fibromyalgia [...] 59 06/30/2024 9:18 AM CDT Temperature 36.7 C (98 F) 06/30/2024 9:18 AM CDT Respiratory Rate 16 [...] COLON CA SCREENING [address] COLONOGRAPHY - COLON CA SCREENING 1968 FIT - COLON CA SCREENING 1968 FLEX SIG - COLON CA SCREENING 1968 PAP SMEAR 1968 HIV SCREENING 1983 DTAP/TDAP/TD VACCINES (1 - Tdap) 1987 HEPATITIS B VACCINE (1 of 3 - 19+ 3-dose series) 1987 PNEUMOCOCCAL VACCINE 50+ (1 of 1 - PCV) 2018 ZOSTER VACCINE (1 of 2) 2018 COVID-19 VACCINE (1 - season) 2024 INFLUENZA VACCINE (#1) 2024 , 07/01/2022, 06/18/2022, Additional history exists DEPRESSION SCREENING 08/31/2024 MEDICARE AWV CALENDAR YEAR 2024 MAMMOGRAM 11/10/2025 11/11/2023, 10/29, 05/20/2022 COLONOSCOPY - COLON CA SCREENING 10/29/2032 10/29/2022 Colorectal Cancer Screening 10/29/2032 HEPATITIS C SCREENING Completed 06/06/2024 HIB VACCINE Aged Out No longer eligi ble based on patient's age to complete this topic HPV VACCINE Aged Out No longer eligi ble based on patient's age to complete this topic MENINGOCOCCAL (Group B) VACCINE Aged Out No longer eligible based on [...] 06/06/2024 2:30 PM CDT Rheumatoid factor positive from Last 3 Months or Most Recently Relevant to Health Maintenance Results * HEPATITIS C ANTIBODY (06/06/2024 2:30 [...] - 06/07/2024 7:12 AM CDT Performed at: [address] [id number] [employer] Operator: Edmundo Dias PhD, Phone: [phone] Rolando Castro DO LAB - CHEMISTRY [facility] INSURANCE BILL [address] [place] [address] from Last 3 Months or Most Recently Relevant to Health Maintenance Care Teams Recruitment And Outreach Assistant Relationship Specialty Start Date End Date Mandeep Pennington DO [address] [place] [phone] PCP - General Internal Medicine 06/30/24
--- OUTSIDE RECORDS SUMMARY | 2024-10-11 03:36 | XMS_ITS | Referral Summary ---
Author Organization [facility]Care Care Team Providers Care Delivery Driver Name Role Phone Mere Landa NP Unavailable [phone] Parmjit Dai MD Primary Care Provider [phone] Tico Burton MD Unavailable [phone] Ivan Liang MD Unavailable Encounters Date Type Department Care Team Description 09/08/[address] [facility] - [facility] Minimally Invasive Surgery [address] [place] [address] 12th Floor, [place] [address] Socorro Ruano 09/06/2024 Telephone [facility] [place] [address] Michael Sanchez, RN 09/06/2024 Telephone [facility] [place] [address] Michael Sanchez, RN 09/06/[address] [facility] - [facility] Minimally Invasive Surgery [address] [facility] 12th Floor, [place] [address] Say Davila MD PhD Medical Question/Miscellaneo us 09/06/2024 Telephone [facility] ([facility] - [facility] Minimally Invasive Surgery [address] [facility] 12th Floor, [place] [address] Say Davila MD PhD Medical Question/Miscellaneo us 09/05/2024 Telephone [facility] [address] [facility] 12th [place] [address] [place] [address] Katerine Blanco, RN AC Hold - Eliquis 09/02/2024 Orders Only [facility]enter[facility] [address] [place] [address] Medical Office Building [address] [place] [phone] Ary Carter LPN 09/02/2024 Telephone [facility] [address] [place] [address] Michael Sanchez RN 09/01/2024 Telephone [facility]enter[facility] [address] [place] [address] [place] [address] [place] [phone] Katharine Carty 08/08/2024 E-Visit [facility] [address] [place] [address] Medical Office Building [address] [place] [phone] Rose Negron MD Follow up visit with my primary physician 07/30/2024 Orders Only [facility] Scanning, Provider 07/21/2024 Orders Only [facility] [address] [place] [address] [place] [address] [place] [phone] Rose Negron MD Chronic nausea (Primary Dx); Diarrhea, unspecified type 07/20/2024 Orders Only 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 Continue bowel regimen if needed to avoid straining. No submerging incision for 1 more week. Light duty for another 2 weeks. Patient will call us back with any further questions or concerns. Assessment & Plan (09/03/2023 8:54 AM AWAKE OVERNIGHT COUNSELOR): I will discuss her case with GI. [...] (09/10/2022): Added automatically from request for surgery [id number] Cyclical vomiting 09/05/2022 Gastritis 09/05/2022 Gastroesophageal reflux [...] 08/13/2021 Assessment & Plan (08/13/2021 9:33 AM AWAKE OVERNIGHT COUNSELOR): Pt complains of pain with urination. Pt also complains of suprapubic pain. Plan - Urine analysis TIA (transient ischemic attack) 08/11/2021 Assessment & Plan (08/13/2021 9:29 AM AWAKE OVERNIGHT COUNSELOR): Sarahy Cardenas Jairo 51-year-old female presenting with [...] mg Assessment & Plan (08/12/2021 6:00 PM AWAKE OVERNIGHT COUNSELOR): Sarahy Gill 51-year-old female presenting with left [...] recommendations Assessment & Plan (08/09/2021 6:14 PM AWAKE OVERNIGHT COUNSELOR): Patient has a history of IBS with [...] agitation/anxiety Assessment & Plan (08/13/2021 9:30 AM AWAKE OVERNIGHT COUNSELOR): Currently mood at baseline. Continue home med Celexa Assessment & Plan (08/12/2021 5:53 PM AWAKE OVERNIGHT COUNSELOR): Currently mood at baseline. Continue home med Celexa Assessment & Plan (08/09/2021 6:30 PM AWAKE OVERNIGHT COUNSELOR): Per patient has a history of bipolar depressive type Stable at this time Not currently on any medication Patient denies any suicidal homicidal ideation Intussusception intestine (CMS/HCC) 08/09/2021 Assessment & Plan (08/09/2021 6:36 PM AWAKE OVERNIGHT COUNSELOR): 08/08/2021 CT abdomen/pelvis with contrast: Possible cystitis, [...] q.day Assessment & Plan (08/13/2021 9:29 AM AWAKE OVERNIGHT COUNSELOR): Blood pressure has been under control Metoprolol restarted Assessment & Plan (08/12/2021 5:49 PM AWAKE OVERNIGHT COUNSELOR): Blood pressure has been under control Metoprolol has been on hold-to allow for permissive hypertension for the next 24 hours, will restart tomorrow Assessment & Plan (08/09/2021 6:31 PM AWAKE OVERNIGHT COUNSELOR): Have reviewed 24 hour blood pressures and [...] consult: Assessment & Plan (08/09/2021 6:12 PM AWAKE OVERNIGHT COUNSELOR): CT abdomen pelvis with contrast at [facility] yesterday showed intussusception CT abdomen pelvis with contrast at [facility]: Showed resolution of intussusception Patient has generalized abdominal pain that is chronic in nature. Associated nausea and vomiting: On Zofran p.r.n. Atrial fibrillation ([facility]/HCC) 05/15/2020 Assessment & Plan (12/18/2021 4:41 PM CDT): Patient has history of AFib. Currently normal sinus rhythm. - Anticoagulation: Eliquis 5 mg b.i.d. - Rate control: Metoprolol XL 25 mg q.day, flecainide 50 mg b.i.d. - Pt on telemetry at this time - will continue to monitor Assessment & Plan (08/13/2021 9:29 AM AWAKE OVERNIGHT COUNSELOR): Currently in sinus rhythm. Eliquis on hold will resume on August 15. Continue with flecainide Metoprolol restarted Assessment & Plan (08/12/2021 5:54 PM AWAKE OVERNIGHT COUNSELOR): Currently in sinus rhythm. Eliquis on hold will resume on August 15. Continue with flecainide Metoprolol on hold will resume tomorrow Assessment & Plan (08/09/2021 6:18 PM AWAKE OVERNIGHT COUNSELOR): No acute events since admission Patient on Eliquis Metoprolol for rate control with hold parameters Will continue to monitor Essential tremor 10/12/2018 Assessment & Plan (08/13/2021 9:30 AM AWAKE OVERNIGHT COUNSELOR): B/l hand with tremor - no changes in strength Assessment & Plan (08/09/2021 6:30 PM AWAKE OVERNIGHT COUNSELOR): Patient reports after waking up had increase [...] consult Assessment & Plan (08/13/2021 9:30 AM AWAKE OVERNIGHT COUNSELOR): Currently in no acute exacerbation. -continue Bentyl Assessment & Plan (08/12/2021 5:47 PM AWAKE OVERNIGHT COUNSELOR): Currently in no acute exacerbation. -continue Bentyl Assessment & Plan (08/09/2021 6:15 PM AWAKE OVERNIGHT COUNSELOR): Patient on Bentyl Monitoring electrolytes Assessment & [...] ibs-d. Will get all the records from [place] and then regroup to discuss possible treatment options. Orthostatic dizziness 09/16/2016 Palpitations 07/29/2016 Migraine headache 07/29/2016 Assessment & Plan (12/18/2021 4:59 PM CDT): Started home Topamax Assessment & Plan (08/09/2021 6:17 PM AWAKE OVERNIGHT COUNSELOR): Patient not complaining of headache or migraines at this time Sumatriptan on hold Hypokalemia Immunizations Name Administration Dates Next Due Influenza, Unspecified 07/01/2022,05/01/2021 Social History Tobacco Use Types Packs/Day Years Used Date Smoking Tobacco: Former Cigarettes 1 984 - 2000 Vaping Smokeless Tobacco: Never Tobacco Cessation:Counseling Given: Not Answered Comments:off and on Alcohol Use Standard Drinks/Week Comments No 0 (1 standard drink = 0.6 oz pur e alcohol) on occasion [facility] Utilities Answer Date Recorded In the past 12 months has Guide, gas, oil, or water Float: [place] threatened to shut off services in your [...] week 09/09/2023 How often do you attend [facility] or restorationism services? Never 09/09/2023 Do you belong to any clubs o r organizations such as jainism groups, unions, fraternal or athletic groups, or school groups? No 09/09/2023 How often do you attend meet ings of the clubs or organizations you belong to? Never 09/09/2023 Are you , , di vorced, , never , or living with a partner? 09/09/2023 AUDIT-C Answer Date Recorded Q1: How often do you have a drink containing alcohol? Never 08/26/2024 Q2: How many drinks containi ng alcohol do you have on a typical day when you are drinking? Patient does not drink Q3: How often do you have si x or more drinks on one occasion? Never 08/26/2024 Overall Financial Resource Strain (CARDIA) Answe r [...] on file Legal Sex Female 10:06 AM AWAKE OVERNIGHT COUNSELOR Gender Identity Female 06/17/2024 7:02 AM CDT Sexual Orientation Not on file Last Filed Vital Signs Vital Sign Reading Time Taken Comments Blood Pressure 98/64 04/20/2024 2:59 PM CDT Pulse 69 04/20/2024 2:59 PM CDT Temperature 36.8 C (98.2 F) 04/20/2024 2:59 PM CDT Respiratory Rate 16 04/20/2024 2:59 PM CDT Oxygen Saturation 98% 04/20/2024 2:59 PM CDT Inhaled Oxygen Concentration - - Weight 63 kg (139 lb) 04/20/2024 2:59 PM CDT Height 162.6 cm (5' 4 ) 04/20/2024 2:59 PM CDT Body Mass Index 23.86 04/20/2024 2:59 PM CDT Plan of Treatment Upcoming Encounters Date Type Department Care Team (Latest Contact Info) Description 10/19/2024 8:30 AM AWAKE OVERNIGHT COUNSELOR Hospital Encounter [facility] [address] [place] [phone] Forest Catherine MD [address] [address] 10/19/2024 8:30 AM AWAKE OVERNIGHT COUNSELOR - 10/19/2024 9:00 AM AWAKE OVERNIGHT COUNSELOR Surgery [facility] [address] [place] [phone] Forest Catherine MD [address] [address] EGD w/Endo Flip & YI placement Scheduled Procedures Name Priority Associated Diagnoses Date/Ti me ESOPHAGOGASTRODUODENOSCOPY Hiatal hernia Gastroesophageal reflux disease, unspecified whether esophagitis present 10/19/2024 8:30 AM AWAKE OVERNIGHT COUNSELOR Procedures Procedure Name Priority Date/Time Associated Diagnosis Comments SCAN - RADIOLOGY/IMAGING 07/30/2024 SCREENING MAMMOGRAM BILATERAL W BONG Schedule Routine, Read Routine (OP Routine) 11/11/2023 8:54 AM CDT Screening mammogram, encounter for COLONOSCOPY 10/29/2022 7:59 AM AWAKE OVERNIGHT COUNSELOR from Last 3 Months or Most Recently [...] SCREENING MAMMOGRAM HISTORY: Routine screening mammography. COMPARISON: 01/17/2022, 10/05/2018, 08/22/2015 TECHNIQUE: CC and MLO views [...] nal Result * COLONOSCOPY (10/29/2022 7:59 AM AWAKE OVERNIGHT COUNSELOR) Anatomical Region Laterality Modality Other Narrative Procedure Note Germania Sorto MD - 10/29/2022 7:[address] [facility] Patient Name: Sarahy Gill Procedure Date: 10/29/2022 7:59 AM Date of : 1970 Admit Type: Outpatient Age: 52 Gender: Female Attending MD: Germania Sorto M.D. Room: [facility] ENDOSCOPY ROOM 1 Note Status: [...] under direct vision. The Pediatric Colonoscope PCF-H190L [id number] was introducedthrough the anus and advanced to [...] 7:59 AM Procedure Code(s): --- Professional --- 64565, Colonoscopy, flexible; with biopsy, single or multiple Diagnosis Code(s): --- Professional --- K64.8, Other hemorrhoids D12.3, Benign neoplasm of transverse colon (hepatic flexure orsplenic flexure) K52.9, Noninfective gastroenteritis and colitis, unspecified CPT copyright 2020 [place] [employer]. All rights reserved. The codes documented in this report are preliminary and upon dental insurance coordinator reviewmay be revised to meet current compliance requirements. Recognized by the [place] [employer] for Gastrointestinal End[employer] for promoting quality in endoscopy Germania Sorto MD ENDOSCOPY PROCEDURES Final Result from Last 3 Months or Most Recently Relevant to Health Maintenance Insurance [facility] MEDICARE [employer] [facility] MED[facility] Address: [address] [address] [place] [address] [facility] H[facility]/PPO Address: [facility] [id number] JULIANA [place]TEGA [address] [employer] MEDICARE SOLUTIONS [employer] Advance Directives For more information, please contact: [phone] Documents on File Type Date Recorded Patient Transit Coach Operator Expl anation ADVANCE DIRECTIVE 08/14/2021 9:12 AM Raz r [employer] * Full Code (Latest Code Status on [...] 8:07 AM 10/29/2022 2:30 PM Care Teams Delivery Driver Relationship Specialty Start Date End Date Parmjit Dai MD PCP - General 12/31/20 Mere Landa NP Nurse Practitioner 02/07/20 Tico Burton MD Surgeon General Surgery 08/09/21 Ivan Liang MD Consulting Physician General Surgery 09/09/23
--- OUTSIDE RECORDS SUMMARY | 2024-10-11 03:36 | XMS_ITS | Patient Health Summary ---
Author Organization [facility] Address [address] [place] [address] Care Team Providers Care Mass Spec Name Role Phone Mandeep Pennington DO Primary Care Provider [phone] [facility],non-owned Affiliates and Associated Physician Practices is amultiple site organization consisting of ambulatory clinics and hospital sitesin [place], [place], [place] and [place]. This disclosure is being madepursuant to the Care Everywhere program and may not contain all information available regarding this patient. Last updated 18.[facility] Allergies * Azithromycin(Other,GI Discomfort) -Low Criticality * [...] - 19 units [facility] INSURANCE BILL Comment: Negative <20 Weak positive 20 - 39 Moderate positive 40 - 59 Strong positive >59 Blood BLOOD SPECIMEN / Unknown 06/06/2024 2:30 PM CDT 06/06/2024 Narrative [facility] INSURANCE BILL - 06/07/2024 1:10 PM CDT Performed at: [address] [place] [id number] Graduate Nurse: Edmundo Dias PhD, Phone: [phone] Rolando Castro DO LAB - SEROLOGY ORDER KIRA [facility] INSURANCE BILL [address] [place] [address] * C-REACTIVE PROTEIN (CRP) (06/06/2024 2:30 PM CDT) C-Reactive Protein <1 0 - 10 mg/L [facility] INSURANCE BILL Blood BLOOD SPECIMEN / Unknown 06/06/2024 2:30 PM CDT 06/06/2024 Narrative [facility] INSURANCE BILL - 06/07/2024 1:10 PM CDT Performed at: [address] [place] [id number] Graduate Nurse: Edmundo Dias PhD, Phone: [phone] Rolando Castro DO LAB - CHEMISTRY ROQUE WALDRON [facility] INSURANCE BILL [address] [place] [address] * QUANTIFERON TB-GOLD (06/06/2024 2:30 PM CDT) [facility] QuantiFERON Incubation Incubation performed. [facility] INSURANCE BILL QuantiFERON-TB Gold Plus Negative Negative [facility] INSURANCE BILL Comment: No response to M tuberculosis antigens detected. Infection with M tuberculosis is unlikely, but high risk individuals should be considered for additional testing (ATS/IDSA/CDC Clinical Practice Guidelines, 2017). The reference range is an Antigen minus Nil result of <0.35 IU/mL. Chemiluminescence immunoassay methodology Performed at: [address] [place] [id number] Graduate Nurse: Edmundo Dias PhD, Phone: [phone] QuantiFERON Criteria Comment [facility] INSURANCE BILL Comment: [...] - 06/08/2024 11:07 PM CDT Performed at: [address] [place] [address] [id number] Graduate Nurse: Edmundo Dias PhD, Phone: [phone] Rolando Castro DO LAB - CHEMISTRY ORDE RABDAPHNE Performing Organization Address City/[facility] Co de Phone Number [facility] INSURANCE BILL [address] [place] [address] * SED RATE AUTO (ESR) (06/06/2024 2:30 PM CDT) Pathologist [facility] Erythrocyte Sedimentation Rate Westergren 2 0 - 40 mm/hr [facility] INSURANCE BILL Blood BLOOD SPECIMEN / Unknown 06/06/2024 2:30 PM CDT 06/06/2024 Narrative [facility] INSURANCE BILL - 06/07/2024 7:12 AM CDT Performed at: - [address] [id number] Graduate Nurse: Edmundo Dias PhD, Phone: [phone] Rolando Castro DO LAB - HEMATOLOGY ORD ERABLES Performing Organization Address [facility] de Phone Number [facility] INSURANCE BILL [address] [place] [address] * HEPATITIS C ANTIBODY (06/06/2024 2:30 PM CDT) Pathologist [facility] Hepatitis C Antibody Non Reactive Non Reactive [...] - 06/07/2024 7:12 AM CDT Performed at: - [facility] [id number] Graduate Nurse: Edmundo Dias PhD, Phone: [phone] Rolando Castro DO LAB - CHEMISTRY ORDE RABDAPHNE Performing Organization Address [facility] Co de Phone Number [facility] INSURANCE BILL [address] [place] [address] * XR Foot Bilat 3Vw or More (06/06/2024 2:06 PM CDT) Anatomical Region Laterality Modality Ankle / Foot, Lower Extremity Ra diographic Imaging 06/06/2024 3:01 PM CDT Impressions 06/06/2024 3:01 PM CDT IMPRESSION: Normal feet radiographs. > Interpreting Provider: Natalia Hamm MD on 06/06/2024 3:01 PM Narrative 06/06/2024 3:01 PM CDT PROCEDURE: XR FOOT BILAT 3VW OR MORE [...] PM Narrative 06/06/2024 3:00 PM CDT PROCEDURE: XR HAND BILAT 3VW OR MORE [...] PM Rolando Castro DO DIAGNOSTIC IMAGING O [facility] Care Teams Mass Spec Relationship Specialty Start Date End Date Mandeep Pennington DO [address] [place] [address] PCP - General Internal Medicine 06/30/24
--- OUTSIDE RECORDS SUMMARY | 2024-10-11 03:36 | XMS_ITS | Clinical Summary ---
Author Organization [facility] Address [address] [place] [address] Phone Care Team Providers Care Design Center Consultant Name Role Phone Parmjit Dai MD Primary Care Provider [phone] Jazmine Kulkarni MD Unavailable [phone] Mir Spencer MD Unavailable Allergies Active Allergy [...] Comments Blood Pressure 96/66 10/29/2023 8:05 AM POLICY DIRECTOR Pulse 52 10/29/2023 8:05 AM POLICY DIRECTOR Temperature 36.9 C (98.4 F) 10/16/2023 8:53 AM POLICY DIRECTOR Respiratory Rate 20 10/29/2023 8:05 AM POLICY DIRECTOR Oxygen Saturation 100% 10/16/2023 8:53 AM POLICY DIRECTOR Inhaled Oxygen Concentration - - Weight 56.7 kg (125 lb) 10/29/2023 8:05 AM POLICY DIRECTOR Height 162.6 cm (5' 4 ) 10/29/2023 8:05 AM POLICY DIRECTOR Body Mass Index 21.46 10/29/2023 8:05 AM POLICY DIRECTOR Plan of Treatment Health Maintenance Due Date Last Done Comments Hepatitis C Virus (HCV) Screening 1970 Hepatitis B Immunization (1 of 3 - 19+ 3-dose series) 1987 Pap Smear 1989 Cervical Cancer Screening (CCS) 1998 HPV/Cotest 1998 Cologuard 2018 Pneumococcal Immunization (50+ years) (1 of 1 - PCV) 2018 Zoster Immunization (1 of 2) 2018 [...] age to complete this topic Insurance MEDICAID [place] MEDICARE C [facility] CIGNA Care Teams Design Center Consultant Relationship Specialty Start Date End Date Parmjit Dai MD [address] [place] [address] [address] [place] [address] PCP - General Family Medicine 05/21/22 Jazmine Kulkarni MD [address] [place] [address] [address] [place] [address] Family Medicine 05/21/22 Mir Spencer MD [address] [facility] [address] [place] [address] Consulting Physician Urology 10/29/23
--- OUTSIDE RECORDS SUMMARY | 2024-10-11 03:36 | XMS_ITS | Referral Summary ---
Author Organization [facility] Address [address] [place] [address] Care Team Providers Care Sanitary Napkin Machine Tender Name Role Phone Mandeep Pennington DO Primary Care Provider [phone] Source Comments [facility],non-owned Affiliates and Associated Physician Practices is amultiple site organization consisting of ambulatory clinics and hospital sitesin [place], [place], [place] and [place]. This disclosure is being madepursuant to the Care Everywhere program and may not contain all information available regarding this patient. Last updated 18.[facility] Allergies Active Allergy Reactions Criticality Noted Date [...] - 06/07/2024 7:12 AM CDT Performed at: [address] [place], [place] [id number] [place], [place] [id number] Animal Rides Manager: Edmundo Dias PhD, Phone: [phone] Rolando Castro DO LAB - CHEMISTRY ROQUE WALDRON [facility] INSURANCE BILL [address] [place] [address] from Last 3 Months or Most Recently Relevant to Health Maintenance Care Teams Sanitary [place]kin Machine Tender Relationship Specialty Start Date End Date Mandeep Pennington DO [address] [place] [address] PCP - General Internal Medicine 06/30/24
--- OUTSIDE RECORDS SUMMARY | 2024-10-11 03:36 | XMS_ITS | Clinical Summary ---
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 Continue bowel regimen if needed to avoid straining. No submerging incision for 1 more week. Light duty for another 2 weeks. Patient will call us back with any further questions or concerns. Assessment & Plan (09/03/2023 8:54 AM AIR DEFENSE SPECIALIST): I will discuss her case with GI. [...] (09/10/2022): Added automatically from request for surgery [id number] Cyclical vomiting 09/05/2022 Gastritis 09/05/2022 Gastroesophageal reflux [...] 08/13/2021 Assessment & Plan (08/13/2021 9:33 AM AIR DEFENSE SPECIALIST): Pt complains of pain with urination. Pt also complains of suprapubic pain. Plan - Urine analysis TIA (transient ischemic attack) 08/11/2021 Assessment & Plan (08/13/2021 9:29 AM AIR DEFENSE SPECIALIST): Sarahy Gill 51-year-old female presenting with left [...] mg Assessment & Plan (08/12/2021 6:00 PM AIR DEFENSE SPECIALIST): Sarahy Gill 51-year-old female presenting with left [...] recommendations Assessment & Plan (08/09/2021 6:14 PM AIR DEFENSE SPECIALIST): Patient has a history of IBS with [...] agitation/anxiety Assessment & Plan (08/13/2021 9:30 AM AIR DEFENSE SPECIALIST): Currently mood at baseline. Continue home med Celexa Assessment & Plan (08/12/2021 5:53 PM AIR DEFENSE SPECIALIST): Currently mood at baseline. Continue home med Celexa Assessment & Plan (08/09/2021 6:30 PM AIR DEFENSE SPECIALIST): Per patient has a history of bipolar depressive type Stable at this time Not currently on any medication Patient denies any suicidal homicidal ideation Intussusception intestine (CMS/HCC) 08/09/2021 Assessment & Plan (08/09/2021 6:36 PM AIR DEFENSE SPECIALIST): 08/08/2021 CT abdomen/pelvis with contrast: Possible cystitis, [...] q.day Assessment & Plan (08/13/2021 9:29 AM AIR DEFENSE SPECIALIST): Blood pressure has been under control Metoprolol restarted Assessment & Plan (08/12/2021 5:49 PM AIR DEFENSE SPECIALIST): Blood pressure has been under control Metoprolol has been on hold-to allow for permissive hypertension for the next 24 hours, will restart tomorrow Assessment & Plan (08/09/2021 6:31 PM AIR DEFENSE SPECIALIST): Have reviewed 24 hour blood pressures and [...] consult: Assessment & Plan (08/09/2021 6:12 PM AIR DEFENSE SPECIALIST): CT abdomen pelvis with contrast at [place] yesterday showed intussusception CT abdomen pelvis with contrast at [facility]: Showed resolution of intussusception Patient has [...] monitor Assessment & Plan (08/13/2021 9:29 AM AIR DEFENSE SPECIALIST): Currently in sinus rhythm. Eliquis on hold will resume on August 15. Continue with flecainide Metoprolol restarted Assessment & Plan (08/12/2021 5:54 PM AIR DEFENSE SPECIALIST): Currently in sinus rhythm. Eliquis on hold will resume on August 15. Continue with flecainide Metoprolol on hold will resume tomorrow Assessment & Plan (08/09/2021 6:18 PM AIR DEFENSE SPECIALIST): No acute events since admission Patient on Eliquis Metoprolol for rate control with hold parameters Will continue to monitor Essential tremor 10/12/2018 Assessment & Plan (08/13/2021 9:30 AM AIR DEFENSE SPECIALIST): B/l hand with tremor - no changes in strength Assessment & Plan (08/09/2021 6:30 PM AIR DEFENSE SPECIALIST): Patient reports after waking up had increase [...] consult Assessment & Plan (08/13/2021 9:30 AM AIR DEFENSE SPECIALIST): Currently in no acute exacerbation. -continue Bentyl Assessment & Plan (08/12/2021 5:47 PM AIR DEFENSE SPECIALIST): Currently in no acute exacerbation. -continue Bentyl Assessment & Plan (08/09/2021 6:15 PM AIR DEFENSE SPECIALIST): Patient on Bentyl Monitoring electrolytes Assessment & [...] ibs-d. Will get all the records from [place] and then regroup to discuss possible treatment options. Orthostatic dizziness 09/16/2016 Palpitations 07/29/2016 Migraine headache 07/29/2016 Assessment & Plan (12/18/2021 4:59 PM CDT): Started home Topamax Assessment & Plan (08/09/2021 6:17 PM AIR DEFENSE SPECIALIST): Patient not complaining of headache or migraines at this time Sumatriptan on hold Hypokalemia Encounters Date Type Department Care Team Description 09/08/2024 Telephone [facility] ([facility]) - [facility] Minimally Invasive Surgery [address] [facility] [address], [place] [phone] Socorro Ruano 09/06/2024 Telephone [facility] [address] [place] [phone] Michael Sanchez, KIET 09/06/2024 Telephone [facility] [address] [place] [phone] Michael Sanchez RN 09/06/2024 Telephone [facility] ([facility]) - [facility] Minimally Invasive Surgery [address] [facility] [address] [address], [place] [phone] Say Davila MD PhD Medical Question/Miscellaneo us 09/06/2024 Telephone [facility] ([facility]) - [facility] Minimally Invasive Surgery [address] [facility] [address], [place] [phone] Say Davila MD PhD Medical Question/Miscellaneo us 09/05/2024 Telephone [facility] [address] [place] [address] 12th [place] [address] [place] [phone] Katerine Blanco, RN AC Hold - Eliquis 09/02/2024 Orders Only [facility] [address] [facility] [address] [place] [phone] Ary Carter LPN 09/02/2024 Telephone [facility] [address] [place] [phone] Michael Sanchez RN 09/01/2024 Telephone [facility] [address] [facility] [address]th [place] [address] [place] [address] Carloz Katharine 08/08/2024 E-Visit [facility] [address] [facility] [address] [place] [address] Rose Negron MD Follow up visit with my primary physician 07/30/2024 Orders Only [facility] Scanning, Provider 07/21/2024 Orders Only [facility] [facility] [address]th [place] [address] [place] [address] Rose Negron MD Chronic nausea (Primary Dx); Diarrhea, unspecified type 07/20/2024 Orders Only [facility] [address]th [place] [address] [place] [address] Rose Negron MD from Last 3 Months Immunizations Name Administration Dates Next Due Influenza, Unspecified 07/01/2022,05/01/2021 Surgical History Surgery Date Site/Laterality Comments HERNIA REPAIR CHOLECYSTECTOMY ENDOMETRIAL ABLATION TUBAL LIGATION SECTION 08/31/1992 - 08/30/1993 ARTHROSCOPIC SURGERY 1984,1994,2001 Left knee ABDOMINAL SURGERY 08/31/2012 - 08/30/2013 [...] 0 12/18/2021 Anemia GERD (gastroesophageal reflux disease) Dysphagia Chronic constipation Hyperlipidemia Cholelithiasis Family History Medical History Relation Name Comments [...] oz pur e alcohol) on occasion [facility] Utilities Answer Date Recorded In the [...] often do you attend chur ch or anabaptist services? Never 09/09/2023 Do you belong to [...] on file Legal Sex Female 10:06 AM AIR DEFENSE SPECIALIST Gender Identity Female 06/17/2024 7:02 AM [...] (Latest Contact Info) Description 10/19/2024 8:30 AM AIR DEFENSE SPECIALIST Hospital Encounter [facility] [address] [place] [phone] Forest Catherine MD [address] [address] 10/19/2024 8:30 AM AIR DEFENSE SPECIALIST - 10/19/2024 9:00 AM AIR DEFENSE SPECIALIST Surgery [facility] [address] [place] [phone] Forest Catherine MD [address] [address] EGD w/Endo Flip & YI placement Scheduled Procedures Name Priority Associated Diagnoses Date/Ti me ESOPHAGOGASTRODUODENOSCOPY Hiatal hernia Gastroesophageal reflux disease, unspecified whether esophagitis present 10/19/2024 8:30 AM AIR DEFENSE SPECIALIST Health Maintenance Due Date Last Done Comments [...] mammogram, encounter for COLONOSCOPY 10/29/2022 7:59 AM AIR DEFENSE SPECIALIST from Last 3 Months or Most Recently [...] nal Result * COLONOSCOPY (10/29/2022 7:59 AM AIR DEFENSE SPECIALIST) Anatomical Region Laterality Modality Other Narrative Procedure Note Germania Sorto MD - 10/29/2022 7:59 AM CST [facility] Patient Name: Sarahy Gill Procedure Date: 10/29/2022 7:59 AM Date of : 1970 Admit Type: Outpatient Age: 52 Gender: Female Attending MD: Germania Sorto M.D. Room: [facility] ENDOSCOPY ROOM 1 Note Status: [...] under direct vision. The Pediatric Colonoscope PCF-H190L [id number] was introducedthrough the anus and advanced to [...] 7:59 AM Procedure Code(s): --- Professional --- 15365, Colonoscopy, flexible; with biopsy, single or multiple Diagnosis Code(s): --- Professional --- K64.8, Other hemorrhoids D12.3, Benign neoplasm of transverse colon (hepatic flexure orsplenic flexure) K52.9, Noninfective gastroenteritis and colitis, unspecified CPT copyright 2020 [employer]. All rights reserved. The codes documented in this report are preliminary and upon ball warper tender reviewmay be revised to meet current compliance requirements. Recognized by the [employer] for promoting quality in endoscopy Germania Sorto MD ENDOSCOPY PROCEDURES Final Result from Last 3 Months or Most Recently Relevant to Health Maintenance Insurance [facility] MEDICARE SOLUTIONS JOANAJOHN [employer]LM[employer] MEDICARE SOLUTIONS [employer]ANCE Advance Directives For more information, please contact: [phone] Documents on File Type Date Recorded Patient Command Center Officer Expl anation ADVANCE DIRECTIVE 08/14/2021 9:12 AM [employer] Engineer-Medical * Full Code (Latest Code Status on [...] 8:07 AM 10/29/2022 2:30 PM Care Teams [employer] T[employer] Relationship Specialty Start Date End Date Parmjit Dai MD PCP - General 12/31/20 Mere Landa NP Nurse Practitioner 02/07/20 Tico Burton MD Surgeon General Surgery 08/09/21 Ivan Liang MD Consulting Physician General Surgery 09/09/23
--- OUTSIDE RECORDS SUMMARY | 2024-10-11 03:36 | XMS_ITS | Encounter Summary ---
Author Organization [facility] Healthcare Address [address] [place] [address] Care Team Providers Care Cloth Packer Name Role Phone Mere Landa NP Unavailable [phone] Parmjit Dai MD Primary Care Provider [phone] Tico Burton MD Unavailable [phone] Ivan Liang MD Unavailable Reason for Visit * Reason Onset Date Comments Scheduling Appointments 06/19/2021 confirmi ng mammogram appt Encounter Details Date Type Department Care Team (Late st Contact Info) Description 06/19/2021 Telephone [facility] [address] [place] [phone] Cheryl Trejo RT Scheduling Appointments (confirming mammogram [...] on file Legal Sex Female 10:06 AM JEWEL OLIVING MACHINE OPERATOR Gender Identity Female 06/17/2024 7:02 AM CDT Sexual Orientation Not on file documented as of this encounter Plan of Treatment Upcoming Encounters Date Type Department Care Team (Latest Contact Info) Description 10/19/2024 8:30 AM JEWEL OLIVING MACHINE OPERATOR Hospital Encounter [facility] [address] [place] [phone] Forest Catherine MD [address] [address] 10/19/2024 8:30 AM JEWEL OLIVING MACHINE OPERATOR - 10/19/2024 9:00 AM JEWEL OLIVING MACHINE OPERATOR Surgery [facility] [address] [place] [phone] Forest Catherine MD [address] [address] EGD w/Endo Flip & YI placement Scheduled Procedures Name Priority Associated Diagnoses Date/Ti me ESOPHAGOGASTRODUODENOSCOPY Hiatal hernia Gastroesophageal reflux disease, unspecified whether esophagitis present 10/19/2024 8:30 AM JEWEL OLIVING MACHINE OPERATOR documented as of this encounter Visit Diagnoses Not on filedocumented in this encounter Additional Health Concerns Infection Onset Date Last Indicated Resolved Time COVID: Suspected 06/09/2022 06/09/2022 06/09/2022 11:28 PM CDT COVID: Suspected 07/06/2022 07/06/2022 07/06/2022 3:52 AM JEWEL OLIVING MACHINE OPERATOR COVID: Suspected 08/18/2022 08/18/2022 08/18/2022 12:59 AM JEWEL OLIVING MACHINE OPERATOR COVID: Suspected 09/19/2023 09/19/2023 09/19/2023 11:01 AM JEWEL OLIVING MACHINE OPERATOR C. difficile suspected 07/21/2024 07/21/202407/22 3:05 AM JEWEL OLIVING MACHINE OPERATOR documented as of this encounter Care Teams Cloth Packer Relationship Specialty Start Date End Date Parmjit Dai MD PCP - General 12/31/20 Mere Landa [employer] DEVELOPER Nurse Practitioner 02/07/20 Tico Burton MD Surgeon General Surgery 08/09/21 Ivan Liang MD Consulting Physician General Surgery 09/09/23 documented as of this encounter
[2024-10-11 03:50] VITALS: BP 106/64; PULSE 76; RESP 13; TEMP 36.7; O2SAT 99
[2024-10-11 07:22] VITALS: BP 117/68; PULSE 82; RESP 18; TEMP 36.2; O2SAT 100
--- NOTE | 2024-10-11 10:31 | ED_ITS ---
HPI - Nausea/Vomiting/Diarrhea General Chief complaint: Nausea/Vomiting/Diarrhea Stated complaint: not feeling well Time Seen by Provider: 10/11/24 10:14 Source: patient Mode of arrival: ambulatory Limitations: no limitations History of Present Illness HPI Narrative: Patient is a 54 y/o female, with PMH of IBS and cyclic vomiting syndrome, AFIB on xarelto, who presents to the ED with multiple complaints. Patient reports having cough, congestion, sore throat, headaches, myalgias, subjective fevers since yesterday. She then woke up overnight with N/V/D and abdominal pain. Reports diffuse cramping throughout upper and lower abdomen. Reports persistent nausea. States she was recently admitted here for colitis/sepsis in July 2024. Denies significant shortness of breath, CP. Notes that her grandson has been sick with similar URI symptoms. Related Data Home Medications ?Medication ?Instructions ?Recorded ?Confirmed ?Last Taken ?Type aluminum-mag hydroxide-simethicone 10 ml PO QID PRN Acid Reflux 05/28/20 09/06/24 07/23/24 History 400 mg-400 mg-40 mg/5 mL oral susp (Mylanta Maximum Strength) simethicone 125 mg chewable tablet 125 mg PO QID PRN Abdominal 05/28/20 09/06/24 04/24/21 21:00 History (Gas-X Extra Strength) Discomfort apixaban 5 mg tablet (Eliquis) 5 mg PO BID 10/23/23 09/06/24 07/30/24 History atorvastatin 40 mg tablet 40 mg PO QHS 10/23/23 09/06/24 07/29/24 History famotidine 20 mg tablet 20 mg PO DAILY PRN Acid Reflux 10/23/23 09/06/24 07/30/24 History metoprolol succinate 25 mg 25 mg PO DAILY 10/23/23 09/06/24 07/30/24 History tablet,extended release 24 hr flecainide 100 mg tablet 100 mg PO Q12H 10/29/23 09/06/24 07/30/24 History pantoprazole 40 mg tablet,delayed 40 mg PO BID 01/04/24 09/06/24 07/30/24 History release buspirone 10 mg tablet 10 mg PO BID 11/07/24 01/07/25 11/30/24 History dicyclomine 10 mg capsule 20 mg PO BID PRN cramping 07/31/24 09/06/24 07/30/24 History Allergies Allergy/AdvReac Type Severity Reaction Status Date / Time prochlorperazine AdvReac Severe Confusion Verified 10/11/24 10:19 metoclopramide (From Reglan) AdvReac Intermediate anxiety Verified 10/11/24 10:19 azithromycin AdvReac Unknown STOMACH Verified 10/11/24 10:19 UPSET promethazine (From Phenergan) AdvReac Jittery Verified 10/11/24 10:19 Review of Systems 2 Review of Systems: All systems reviewed & are unremarkable except as noted in HPI. All systems reviewed & are unremarkable except as noted in HPI and below PMFSH Past Medical History Medical History Foot pain, right Achilles tendon contracture, right Chondromalacia of right knee Anemia History of TIA (transient ischemic attack) Irritable bowel syndrome with constipation History of hyperlipidemia History of atrial fibrillation History of gastroesophageal reflux (GERD) Adenomatous colon polyp Atrial fibrillation Arthritis GERD (gastroesophageal reflux disease) Celiac disease Diverticulosis Anxiety and depression Neuropathy Migraine headache Surgical History Surgical History History of colonoscopy with polypectomy (03/2021) And repeat colonoscopy 2022 Status post lateral meniscectomy of right knee (07/2024) Hx of emergency section History of appendectomy History of delivery History of tubal ligation History of Gary fundoplication History of cholecystectomy Family History Family History Mother Family history of elevated blood lipids Family history of arthritis Sibling Family history of arthritis Grandparent Cerebrovascular accident Family history of cardiovascular disease Hypertension Diabetes mellitus Other Heart disease Acute myocardial infarction Father Alcoholism Mother Alcoholism Depression Anxiety Grandparent Throat cancer Cerebrovascular accident Heart problem Social History Social History Social History: She lives at home with her of 6 years. This is her 3rd marriage. She had 6 children. One son and 5 daughters. She smoked half pack of cigarettes per day since she was 14 years old but switched to vaping nicotine several years ago. She rarely drinks alcohol and only minute amounts. She uses marijuana daily. Code status: Full code (she would not want to be on the ventilator long-term or if she had no quality of life ) Surrogate decision maker: Smoking packs per day: 0.5 Smoking cigarettes per day: 10.0 Years smoked: 15 Smoking pack-years: 7.50 Smoking status: Former smoker Tobacco type: cigarettes and e-cigarettes/vaping Second hand tobacco smoke exposure: No Smoking end date: 07/07/02 Additional smoking assessment comments: Currently vapes. Alcohol intake: never Substance use: current Substance use type: marijuana Other substance usage details: Daily Last use: 07/30/24 Do You Feel Safe in your Home?: Yes Lack of Transportation: No Lack of Food: Never True Current Housing: Decline to Answer Concerned About Future Housing: Decline to Answer Difficulty Paying Gas/Electric Bills: Decline to Answer Difficulty Paying for Meds: Decline to Answer Currently Unemployed: Decline to Answer Education: Decline to Answer Difficulty w/ Childcare or Family Care: Decline to Answer Living arrangements: with family Occupation/Education: other Additional occupation/education comments: disabled Gender identity (if verbalized by the patient): Female Sexual Orientation (if Verbalized by the Patient): Straight or Heterosexual Spiritual care concerns: No Exam 2 Narrative: GENERAL: Mildly ill appearing, appears older than stated age, well-nourished, non-toxic, in no acute distress. HEAD: Normocephalic, atraumatic. RESPIRATORY: Airway patent, respirations nonlabored. Clear to auscultation bilaterally, no rales, rhonchi, wheezing. CARDIOVASCULAR: Regular rate and rhythm without murmurs, rubs, or gallops. ABDOMINAL: Soft, mild diffuse tenderness throughout abdomen, nondistended. Normoactive BS. MUSCULOSKELETAL: Moves all extremities. No gross deformities. SKIN: Warm, dry, normal color. NEURO: A&O X3. Speech clear. PSYCHIATRIC: Appropriate mood and affect. Normal interaction. Course Vital Signs Vital signs: Vital Signs Temperature 98.1 F 10/11/24 03:50 Pulse Rate 76 10/11/24 03:50 Respiratory Rate 13 10/11/24 03:50 Blood Pressure 106/64 10/11/24 03:50 Pulse Oximetry 99 10/11/24 03:50 Oxygen Delivery Room Air 10/11/24 03:50 Temperature 97.2 F L 10/11/24 07:22 Pulse Rate 78 10/11/24 12:12 Respiratory Rate 18 10/11/24 12:12 Blood Pressure 114/58 L 10/11/24 12:12 Pulse Oximetry 100 10/11/24 12:12 Oxygen Delivery Room Air 10/11/24 03:50 MDM - Nausea/Vomiting/Diarrhea MDM Narrative Medical decision making narrative: Patient presented to ED with URI symptoms, nausea, vomiting, diarrhea. VSS are stable upon arrival. BP is borderline low. This is fairly consistent with patient's previous records, chronically low BP. Fluids initiated. Laboratory studies fairly unremarkable. No leukocytosis or anemia. Stable electrolytes and kidney function. Patient tested positive for influenza A. Consistent with clinical picture. Patient is within the window for receiving tamiflu given sx onset. Discussed this with patient. She is agreeable to starting this. CT abd/pelvis obtained and w/o acute findings. No surgical findings. Patient given fluids and nausea medicine in the ED. She is feeling improved on re-evaluation. Feel she is safe for discharge home. She has Zofran at home that she can continue to use. Advised to stay well hydrated. Discussed further management of influenza. Given return precautions. Otherwise recommended follow-up with PCP for further evaluation. She agrees w/ plan. D/C in stable condition. Medical Records Attestation: I reviewed the patient's medical records. Lab Data Attestation: I reviewed the patient's lab results. 10/11/24 10:58 10/11/24 10:58 Labs: Lab Results 10/11/24 10/11/24 10/11/24 Range/Units 09:59 10:58 10:58 WBC 6.9 (4.5-10.0) K/mm3 RBC 3.85 L (4.2-5.4) M/mm3 Hgb 12.2 (12.0-15.0) g/dL Hct 36.5 L (37.0-47.0) % MCV 94.8 (80-100) fl MCH 31.7 (26-34) pg MCHC 33.4 (32-36) g/dl RDW 13.4 (11.5-14.5) % Plt Count 247 (150-375) k/mm3 MPV 10.5 H (7.4-10.4) fl Immature Gran % (Auto) 0.6 H (0-0.5) % Neut % (Auto) 80.6 H (45.5-73.1) % Lymph % (Auto) 3.0 L (18.3-44.2) % [facility] % (Auto) 15.5 H (2.6-8.5) % Eos % (Auto) 0.0 (0-4.4) % Baso % (Auto) 0.3 (0.2-1.2) % Lymph # (Auto) 0.21 L (0.9-3.2) K/mm3 [facility] # (Auto) 1.1 H (0.1-0.6) K/mm3 Eos # (Auto) 0.0 (0-0.3) K/mm3 Baso # (Auto) 0.0 (0.0-0.1) K/mm3 Abs Immat Gran (auto) 0.04 H (0.00-0.031) K/mm3 Absolute Neuts (auto) 5.6 (1.3-6.7) K/mm3 Absolute Nucleated RBC 0.000 (0.0-0.012) K/mm3 Nucleated RBC % 0.0 (0.0-0.2) % Sodium 143 (137-145) mmol/L Potassium 4.0 (3.4-5.0) mmol/L Chloride 104 (98-107) mmol/L Carbon Dioxide 27 (22-30) mmol/L Anion Gap 12 (4-12) mmol/L BUN 10 D (7-17) mg/dL Creatinine 0.65 L (0.7-1.0) mg/dL Estim Creat Clear Calc 71 ml/min Estimated GFR > 60 (59 - ) Glucose 107 (65-110) mg/dL Calcium 9.6 (8.4-10.2) mg/dL Magnesium 2.1 Cancelled (1.6-2.3) mg/dL Total Bilirubin 0.5 (0.2-1.3) mg/dL AST 37 H (14-36) U/L ALT 32 (6-35) U/L Alkaline Phosphatase 85 (38-126) U/L Total Protein 8.0 (6.3-8.2) g/dL Albumin 4.7 (3.5-5.1) g/dL Influenza A (RT-PCR) Positive A (Negative) Influenza B (RT-PCR) Negative (Negative) RSV (RT-PCR) Negative (Negative) SARS-CoV-2 RNA (RT-PCR) Negative (Negative) Imaging Data Attestation: I personally reviewed and interpreted this imaging study as follows: Radiologist's impression: ITS Impressions Abdomen/Pelvis CT 10/11/24 12:03 IMPRESSION: 1. No etiology for the patient's symptoms. Discharge Plan Discharge Clinical Impression: Influenza A Nausea and vomiting Qualifiers: Vomiting type: unspecified Qualified Code(s): R11.2 - Nausea with vomiting, unspecified Patient Disposition: Home, Self-Care Condition: Stable Instructions: Antibiotic Form, Dehydration (ED), Clear Liquid Diet (ED), Influenza (ED), Acute Nausea and Vomiting (ED) Additional Instructions: You were diagnosed with Influenza A today. Isolate at home as you are contagious. Take Tamiflu as prescribed. Continue home medications. Continue Zofran as needed for nausea. Stay well- hydrated at home as much as possible. Recommend frequent sipping of fluids. Recommend electrolyte rich fluids, Gatorade, Pedialyte, body armor. Utilize Tessalon Perles as needed for cough. Recommend Tylenol around the clock as needed for discomfort and/or fevers. Recommend vfvx-vux-dptaoss cough and cold medicines for symptom relief, Delsym, Mucinex, DayQuil, NyQuil, Sudafed, Robitussin, TheraFlu. Follow with primary care doctor upon resolution of symptoms. Return to the ED if you experience chest pain, difficulty breathing, unable to keep down food or drink, severe pain, or any other symptoms of concern. Patient Language: American Prescriptions: New benzonatate 200 mg capsule 200 mg PO TID PRN (Reason: cough) Qty: 15 0RF oseltamivir [Tamiflu] 75 mg capsule 75 mg PO Q12H 5 Days Qty: 10 0RF ondansetron 4 mg tablet,disintegrating 4 mg PO Q8H PRN (Reason: nausea and vomiting) Qty: 15 0RF No Action metoprolol succinate 25 mg tablet extended release 24 hr 25 mg PO DAILY atorvastatin 40 mg tablet 40 mg PO QHS famotidine 20 mg tablet 20 mg PO DAILY PRN (Reason: Acid Reflux) Eliquis 5 mg tablet 5 mg PO BID flecainide 100 mg tablet 100 mg PO Q12H pantoprazole 40 mg tablet,delayed release (DR/EC) 40 mg PO BID buspirone 10 mg tablet 10 mg PO BID ondansetron 8 mg tablet,disintegrating 8 mg PO Q8H PRN (Reason: nausea and vomiting) Qty: 10 1RF dicyclomine 10 mg capsule 20 mg PO BID PRN (Reason: cramping) simethicone [Gas-X Extra Strength] 125 mg Tablet,Chewable 125 mg PO QID PRN (Reason: Abdominal Discomfort) Patient Comments: Patient states that she takes one between meals. alum-mag hydroxide-simeth [Mylanta Maximum Strength] 400-400-40 mg/5 mL Suspension 10 ml PO QID PRN (Reason: Acid Reflux) Patient Comments: Patient states she takes in between meals and before bed. acetaminophen 500 mg tablet 500 mg PO Q6H PRN (Reason: pain) Qty: 30 0RF ondansetron 4 mg tablet,disintegrating 4 mg PO Q8H PRN (Reason: nausea and vomiting) Qty: 14 0RF meclizine 12.5 mg tablet 12.5 mg PO TID PRN (Reason: dizziness) Qty: 10 0RF amitriptyline 10 mg tablet See Rx Instructions .ROUTE .COMPLEX Qty: 30 2RF Dose Instruction: TAKE 1 TABLET BY MOUTH EVERYDAY AT BEDTIME Rx Instructions: TAKE 1 TABLET BY MOUTH EVERYDAY AT BEDTIME Follow-up/Referrals: UNKNOWN,DOCTOR [Primary Care Provider] - Time of Disposition: 12:36
[2024-10-11 10:40] LABS: Influenza A QL RT-PCR Positive (Negative); Influenza B QL RT-PCR Negative (Negative); RSV RNA, RT-PCR Negative (Negative); SARS-CoV-2 RNA PCR Negative (Negative)
[2024-10-11] MEDS: ONDANSETRON INJ 4 MG/2 ML VIAL IV PUSH (11:01)
[2024-10-11] MEDS: SODIUM CHLORIDE 0.9% IV 1,000 ML 999 ML IV CONT (11:01)
[2024-10-11 11:03] VITALS: BP 93/54; PULSE 84; RESP 18; O2SAT 100
[2024-10-11 11:09] LABS: Basophils Percent Auto 0.3 % (0.2-1.2); Hematocrit 36.5 % (37.0-47.0); Hemoglobin 12.2 g/dL (12.0-15.0); Immature Granulocyte Absolute 0.04 K/mm3 (0.00-0.031); Immature Granulocyte Percent A 0.6 % (0-0.5); Lymphocytes Absolute Auto 0.21 K/mm3 (0.9-3.2); Mean Corpuscular HGB Conc 33.4 g/dl (32-36); Mean Corpuscular Hemoglobin 31.7 pg (26-34); Mean Corpuscular Volume 94.8 fl (80-100); Mean Platelet Volume 10.5 fl (7.4-10.4); Monocytes Absolute Auto 1.1 K/mm3 (0.1-0.6); Monocytes Percent Auto 15.5 % (2.6-8.5); Neutrophils Absolute Auto 5.6 K/mm3 (1.3-6.7); Neutrophils Percent Auto 80.6 % (45.5-73.1); Platelet Count Result 247 k/mm3 (150-375); Red Blood Count 3.85 M/mm3 (4.2-5.4); Red Cell Distribution Width 13.4 % (11.5-14.5); White Blood Count 6.9 K/mm3 (4.5-10.0)
[2024-10-11 11:20] LABS: Alanine Aminotransferase 32 U/L (6-35); Albumin Level 4.7 g/dL (3.5-5.1); Alkaline Phosphatase 85 U/L (38-126); Anion Gap 12 mmol/L (4-12); Aspartate Amino Transferase 37 U/L (14-36); Bilirubin,Total 0.5 mg/dL (0.2-1.3); Blood Urea Nitrogen 10 mg/dL (7-17); Calcium 9.6 mg/dL (8.4-10.2); Carbon Dioxide 27 mmol/L (22-30); Chloride 104 mmol/L (98-107); Estimated CRCL calculation 71 ml/min; Estimated Glomerular Filt Rate > 60; Glucose 107 mg/dL (65-110); Magnesium 2.1 mg/dL (1.6-2.3); Sodium 143 mmol/L (137-145)
--- OUTSIDE RECORDS SUMMARY | 2024-10-11 11:26 | XMS_ITS | Patient Health Summary ---
Author Organization [facility] Address [address] [place] [address] Care Team Providers Care Plan Checker Name Role Phone Mandeep Pennington DO Primary Care Provider [phone] Note from [facility],non-owned Affiliates and Associated Physician Practices is amultiple site organization consisting of ambulatory clinics and hospital sitesin [place], [place], [place] and [place]. This disclosure is being madepursuant to the Care Everywhere program and may not contain all information available regarding this patient. Last updated 18.[facility] Allergies * Azithromycin(Other,GI Discomfort) -Low Criticality * [...] - 06/07/2024 1:10 PM CDT Performed at: [address] [place] [address] [id number] Changer Fixer: Edmundo Dias PhD, Phone: [phone] Rolando Castro DO LAB - SEROLOGY ORDER KIRA [facility] INSURANCE BILL [address] [place] [address] * C-REACTIVE PROTEIN (CRP) (06/06/2024 2:30 PM CDT) C-Reactive Protein <1 0 - 10 mg/L [facility] INSURANCE BILL Blood BLOOD SPECIMEN / Unknown 06/06/2024 2:30 PM CDT 06/06/2024 Narrative [facility] INSURANCE BILL - 06/07/2024 1:10 PM CDT Performed at: [address] [place] [address] [id number] Changer Fixer: Edmundo Dias PhD, Phone: [phone] Rolando Castro DO LAB - CHEMISTRY ROQUE WALDRON [facility] INSURANCE BILL [address] [place] [address] * QUANTIFERON TB-GOLD (06/06/2024 2:30 PM CDT) [facility] QuantiFERON Incubation Incubation performed. [facility] INSURANCE BILL QuantiFERON-TB Gold Plus Negative Negative [facility] INSURANCE BILL Comment: No response to M tuberculosis antigens detected. Infection with M tuberculosis is unlikely, but high risk individuals should be considered for additional testing (ATS/IDSA/CDC Clinical Practice Guidelines, 2017). The reference range is an Antigen minus Nil result of <0.35 IU/mL. Chemiluminescence immunoassay methodology Performed at: [address] [place] [address] [id number] Changer Fixer: Edmundo Dias PhD, Phone: [phone] QuantiFERON Criteria Comment [facility] INSURANCE BILL Comment: [...] - 06/08/2024 11:07 PM CDT Performed at: [address] [place] [address] [id number] Changer Fixer: Edmundo Dias PhD, Phone: [phone] Rolando Castro DO LAB - CHEMISTRY ORDE RABDAPHNE Performing Organization Address [facility] Co de Phone Number [facility] INSURANCE BILL [address] [place] [address] * SED RATE AUTO (ESR) (06/06/2024 2:30 PM CDT) Pathologist [facility] Erythrocyte Sedimentation Rate Westergren 2 0 - 40 mm/hr [facility] INSURANCE BILL Blood BLOOD SPECIMEN / Unknown 06/06/2024 2:30 PM CDT 06/06/2024 Narrative [facility] INSURANCE BILL - 06/07/2024 7:12 AM CDT Performed at: - [address] [id number] Changer Fixer: Edmundo Dias PhD, Phone: [phone] Rolando Castro DO LAB - HEMATOLOGY ORD ERABLES Performing Organization Address [facility] de Phone Number [facility] INSURANCE BILL [address] [place] [address] * HEPATITIS C ANTIBODY (06/06/2024 2:30 PM CDT) Pathologist [facility] Hepatitis C Antibody Non Reactive Non Reactive [...] 06/07/2024 7:12 AM CDT Performed at: - [facility] [id number] Changer Fixer: Edmundo Dias PhD, Phone: [phone] Rolando Castro DO LAB - CHEMISTRY ORDE RABDAPHNE Performing Organization Address [facility] Co de Phone Number [facility] INSURANCE BILL [address] [place] [address] * XR Foot Bilat 3Vw or More [...] PM Rolando Castro DO DIAGNOSTIC IMAGING O [facility] Care Teams Plan Checker Relationship Specialty Start Date End Date Mandeep Pennington DO [address] [place] [address] PCP - General Internal Medicine 06/30/24
--- OUTSIDE RECORDS SUMMARY | 2024-10-11 11:26 | XMS_ITS | Clinical Summary ---
Author Organization [facility] Address [address] [place] [address] Phone Care Team Providers Care Spray Blender Name Role Phone Parmjit Dai MD Primary Care Provider [phone] Jazmine Kulkarni MD Unavailable [phone] Mir Spencer MD Unavailable Allergies Active Allergy [...] Comments Blood Pressure 96/66 10/29/2023 8:05 AM DESK CLERKS SUPERVISOR Pulse 52 10/29/2023 8:05 AM DESK CLERKS SUPERVISOR Temperature 36.9 C (98.4 F) 10/16/2023 8:53 AM DESK CLERKS SUPERVISOR Respiratory Rate 20 10/29/2023 8:05 AM DESK CLERKS SUPERVISOR Oxygen Saturation 100% 10/16/2023 8:53 AM DESK CLERKS SUPERVISOR Inhaled Oxygen Concentration - - Weight 56.7 kg (125 lb) 10/29/2023 8:05 AM DESK CLERKS SUPERVISOR Height 162.6 cm (5' 4 ) 10/29/2023 8:05 AM DESK CLERKS SUPERVISOR Body Mass Index 21.46 10/29/2023 8:05 AM DESK CLERKS SUPERVISOR Plan of Treatment Health Maintenance Due Date [...] age to complete this topic Insurance MEDICAID [place] MEDICARE C [facility] CIGNA Care Teams Spray Blender Relationship Specialty Start Date End Date Parmjit Dai MD [address] [place] [address] [address] [place] [address] PCP - General Family Medicine 05/21/22 Jazmine Kulkarni MD [address] [place] [address] [address] [place] [address] Family Medicine 05/21/22 Mir Spencer MD [address] [facility] [address] [place] [address] Consulting Physician Urology 10/29/23
--- OUTSIDE RECORDS SUMMARY | 2024-10-11 11:26 | XMS_ITS | Referral Summary ---
Author Organization [facility] Address [address] [place] [address] Care Team Providers Care Cap Sizer Name Role Phone Mandeep Pennington DO Primary Care Provider [phone] Source Comments [facility],non-owned Affiliates and Associated Physician Practices is amultiple site organization consisting of ambulatory clinics and hospital sitesin [place], [place], [place] and [place]. This disclosure is being madepursuant to the Care Everywhere program and may not contain all information available regarding this patient. Last updated 18.[facility] Allergies Active Allergy Reactions Criticality Noted Date [...] - 06/07/2024 7:12 AM CDT Performed at: [address] [place], [place] [id number] [place], [place] [id number] Block Operator: Edmundo Dais PhD, Phone: [phone] Rolando Castro DO LAB - CHEMISTRY ROQUE WALDRON [facility] INSURANCE BILL [address] [place] [address] from Last 3 Months or Most Recently Relevant to Health Maintenance Care Teams Cap Sizer Relationship Specialty Start Date End Date Mandeep Pennington DO [address] [place] [address] PCP - General Internal Medicine 06/30/24
--- OUTSIDE RECORDS SUMMARY | 2024-10-11 11:26 | XMS_ITS | Referral Summary ---
Author Organization [facility]Care Care Team Providers Care Activity Manager Name Role Phone Mere Landa NP Unavailable [phone] Parmjit Dai MD Primary Care Provider [phone] Tico Burton MD Unavailable [phone] Ivan Liang MD Unavailable Encounters Date Type Department Care Team Description 09/08/2024 Telephone [facility] ([facility] Minimally Invasive Surgery [address] [place] [address] 12th Floor, [place] [address] Socorro Ruano 09/06/2024 Telephone [facility] [place] [address] Michael Sanchez, RN 09/06/2024 Telephone [facility] [place] [address] Michael Sanchez, RN 09/06/2024 Telephone [facility] ([facility] Minimally Invasive Surgery [address] [facility] 12th Floor, [place] [address] Say Davila MD PhD Medical Question/Miscellaneo us 09/06/2024 Telephone [facility] ([facility] Minimally Invasive Surgery [address] [facility] 12th Floor, [place] [address] Say Davila MD PhD Medical Question/Miscellaneo us 09/05/2024 Telephone [facility] [address] [facility] 12th [place] [address] [place] [phone] Katerine Blanco, RN AC Hold - Eliquis 09/02/2024 Orders Only [facility] [address] [place] [address] Medical Office Building [address] [place] [phone] Ary Carter LPN 09/02/2024 Telephone [facility] [address] [place] [phone] Michael Sanchez RN 09/01/2024 Telephone [facility] [address] [place] [address] [place] [address] [place] [phone] Katharine Carty 08/08/2024 E-Visit [facility] [address] [place] [address] Medical Office Building [address] [place] [phone] Rose Negron MD Follow up visit with my primary physician 07/30/2024 Orders Only [facility] Scanning, Provider 07/21/2024 Orders Only [facility] [address] [place] [address] [place] [address] [place] [phone] Rose Negron MD Chronic nausea (Primary Dx); Diarrhea, unspecified type 07/20/2024 Orders Only [facility] [facility] 12th [place] [address] [place] [phone] Rose Negron MD from Last 3 Months [...] 09/03/2023 Assessment & Plan (09/17/2023 9:54 AM SUPERVISOR ENDLESS TRACK VEHICLE): Diet as tolerates. Continue bowel regimen if needed to avoid straining. No submerging incision for 1 more week. Light duty for another 2 weeks. Patient will call us back with any further questions or concerns. Assessment & Plan (09/03/2023 8:54 AM SUPERVISOR ENDLESS TRACK VEHICLE): I will discuss her case with GI. [...] (09/10/2022): Added automatically from request for surgery [id number] Cyclical vomiting 09/05/2022 Gastritis 09/05/2022 Gastroesophageal reflux [...] 08/13/2021 Assessment & Plan (08/13/2021 9:33 AM SUPERVISOR ENDLESS TRACK VEHICLE): Pt complains of pain with urination. Pt also complains of suprapubic pain. Plan - Urine analysis TIA (transient ischemic attack) 08/11/2021 Assessment & Plan (08/13/2021 9:29 AM SUPERVISOR ENDLESS TRACK VEHICLE): Sarahy Cardenas Jairo 51-year-old female presenting with [...] mg Assessment & Plan (08/12/2021 6:00 PM SUPERVISOR ENDLESS TRACK VEHICLE): Sarahy Gill 51-year-old female presenting with left [...] recommendations Assessment & Plan (08/09/2021 6:14 PM SUPERVISOR ENDLESS TRACK VEHICLE): Patient has a history of IBS with [...] agitation/anxiety Assessment & Plan (08/13/2021 9:30 AM SUPERVISOR ENDLESS TRACK VEHICLE): Currently mood at baseline. Continue home med Celexa Assessment & Plan (08/12/2021 5:53 PM SUPERVISOR ENDLESS TRACK VEHICLE): Currently mood at baseline. Continue home med Celexa Assessment & Plan (08/09/2021 6:30 PM SUPERVISOR ENDLESS TRACK VEHICLE): Per patient has a history of bipolar depressive type Stable at this time Not currently on any medication Patient denies any suicidal homicidal ideation Intussusception intestine (CMS/HCC) 08/09/2021 Assessment & Plan (08/09/2021 6:36 PM SUPERVISOR ENDLESS TRACK VEHICLE): 08/08/2021 CT abdomen/pelvis with contrast: Possible cystitis, [...] q.day Assessment & Plan (08/13/2021 9:29 AM SUPERVISOR ENDLESS TRACK VEHICLE): Blood pressure has been under control Metoprolol restarted Assessment & Plan (08/12/2021 5:49 PM SUPERVISOR ENDLESS TRACK VEHICLE): Blood pressure has been under control Metoprolol has been on hold-to allow for permissive hypertension for the next 24 hours, will restart tomorrow Assessment & Plan (08/09/2021 6:31 PM SUPERVISOR ENDLESS TRACK VEHICLE): Have reviewed 24 hour blood pressures and [...] consult: Assessment & Plan (08/09/2021 6:12 PM SUPERVISOR ENDLESS TRACK VEHICLE): CT abdomen pelvis with contrast at [place] yesterday showed intussusception CT abdomen pelvis with contrast at [facility]: Showed resolution of intussusception Patient has generalized abdominal pain that is chronic in nature. Associated nausea and vomiting: On Zofran p.r.n. Atrial fibrillation ([facility]/HCC) 05/15/2020 Assessment & Plan (12/18/2021 4:41 PM CDT): Patient has history of AFib. Currently normal sinus rhythm. - Anticoagulation: Eliquis 5 mg b.i.d. - Rate control: Metoprolol XL 25 mg q.day, flecainide 50 mg b.i.d. - Pt on telemetry at this time - will continue to monitor Assessment & Plan (08/13/2021 9:29 AM SUPERVISOR ENDLESS TRACK VEHICLE): Currently in sinus rhythm. Eliquis on hold will resume on August 15. Continue with flecainide Metoprolol restarted Assessment & Plan (08/12/2021 5:54 PM SUPERVISOR ENDLESS TRACK VEHICLE): Currently in sinus rhythm. Eliquis on hold will resume on August 15. Continue with flecainide Metoprolol on hold will resume tomorrow Assessment & Plan (08/09/2021 6:18 PM SUPERVISOR ENDLESS TRACK VEHICLE): No acute events since admission Patient on Eliquis Metoprolol for rate control with hold parameters Will continue to monitor Essential tremor 10/12/2018 Assessment & Plan (08/13/2021 9:30 AM SUPERVISOR ENDLESS TRACK VEHICLE): B/l hand with tremor - no changes in strength Assessment & Plan (08/09/2021 6:30 PM SUPERVISOR ENDLESS TRACK VEHICLE): Patient reports after waking up had increase [...] consult Assessment & Plan (08/13/2021 9:30 AM SUPERVISOR ENDLESS TRACK VEHICLE): Currently in no acute exacerbation. -continue Bentyl Assessment & Plan (08/12/2021 5:47 PM SUPERVISOR ENDLESS TRACK VEHICLE): Currently in no acute exacerbation. -continue Bentyl Assessment & Plan (08/09/2021 6:15 PM SUPERVISOR ENDLESS TRACK VEHICLE): Patient on Bentyl Monitoring electrolytes Assessment & [...] ibs-d. Will get all the records from [place] and then regroup to discuss possible treatment options. Orthostatic dizziness 09/16/2016 Palpitations 07/29/2016 Migraine headache 07/29/2016 Assessment & Plan (12/18/2021 4:59 PM CDT): Started home Topamax Assessment & Plan (08/09/2021 6:17 PM SUPERVISOR ENDLESS TRACK VEHICLE): Patient not complaining of headache or migraines [...] oz pur e alcohol) on occasion [facility] Utilities Answer Date Recorded In the past 12 months has [employer], gas, oil, or water [place] threatened to shut off services in your [...] week 09/09/2023 How often do you attend [facility] or confucianism services? Never 09/09/2023 Do you belong to any clubs o r organizations such as moravian groups, unions, fraternal or athletic groups, or [...] place to sleep or slept in a fpc (including now)? No 09/09/2023 Personal Safety Answer Date Recorded Have you ever been in or are you currently in a harmful physical or emotional relationship or is someone making you feel afraid or unsafe? Denies 02/08/2024 Comments No Sex and Gender Information Value Date Recorded Sex Assigned at Not on file Legal Sex Female 10:06 AM SUPERVISOR ENDLESS TRACK VEHICLE Gender Identity Female 06/17/2024 7:02 AM CDT [...] (Latest Contact Info) Description 10/19/2024 8:30 AM SUPERVISOR ENDLESS TRACK VEHICLE Hospital Encounter [facility] [address] [place] [phone] Forest Catherine MD [address] [address] 10/19/2024 8:30 AM SUPERVISOR ENDLESS TRACK VEHICLE - 10/19/2024 9:00 AM SUPERVISOR ENDLESS TRACK VEHICLE Surgery [facility] [address] [place] [phone] Forest Catherine MD [address] [address] EGD w/Endo Flip & YI placement Scheduled Procedures Name Priority Associated Diagnoses Date/Ti me ESOPHAGOGASTRODUODENOSCOPY Hiatal hernia Gastroesophageal reflux disease, unspecified whether esophagitis present 10/19/2024 8:30 AM SUPERVISOR ENDLESS TRACK VEHICLE Procedures Procedure Name Priority Date/Time Associated Diagnosis Comments SCAN - RADIOLOGY/IMAGING 07/30/2024 SCREENING MAMMOGRAM BILATERAL W BONG Schedule Routine, Read Routine (OP Routine) 11/11/2023 8:54 AM CDT Screening mammogram, encounter for COLONOSCOPY 10/29/2022 7:59 AM SUPERVISOR ENDLESS TRACK VEHICLE from Last 3 Months or Most Recently [...] nal Result * COLONOSCOPY (10/29/2022 7:59 AM SUPERVISOR ENDLESS TRACK VEHICLE) Anatomical Region Laterality Modality Other Narrative Procedure Note Germania Sorto MD - 10/29/2022 7:59 AM CST [facility] Patient Name: Sarahy Gill Procedure Date: 10/29/2022 7:59 AM Date of : 1970 Admit Type: Outpatient Age: 52 Gender: Female Attending MD: Germania Sorto M.D. Room: [facility] ENDOSCOPY ROOM 1 Note Status: Finalized Patient [...] under direct vision. The Pediatric Colonoscope PCF-H190L [id number] was introducedthrough the anus and advanced to [...] 7:59 AM Procedure Code(s): --- Professional --- 03523, Colonoscopy, flexible; with biopsy, single or multiple Diagnosis Code(s): --- Professional --- K64.8, Other hemorrhoids D12.3, Benign neoplasm of transverse colon (hepatic flexure orsplenic flexure) K52.9, Noninfective gastroenteritis and colitis, unspecified CPT copyright 2020 [employer]. All rights reserved. The codes documented in this report are preliminary and upon respite care provider reviewmay be revised to meet current compliance requirements. Recognized by the [employer] for promoting quality in endoscopy Germania Sorto MD ENDOSCOPY PROCEDURES Final Result from Last 3 Months or Most Recently Relevant to Health Maintenance Insurance [facility] MEDICARE SOLUTIONS [facility] HMO/PPO Address: [facility] [id number] [place] [address] [employer] MEDICARE SOLUTIONS [employer] Advance Directives For more information, please contact: [phone] Documents on File Type Date Recorded Patient Client Support Professional Expl anation ADVANCE DIRECTIVE 08/14/2021 9:12 AM [employer] Worker-Medical * Full Code (Latest Code Status on [...] 8:07 AM 10/29/2022 2:30 PM Care Teams Activity Manager Relationship Specialty Start Date End Date Parmjit Dai MD PCP - General 12/31/20 Mere Landa NP Nurse Practitioner 02/07/20 Tico Burton MD Surgeon General Surgery 08/09/21 Ivan Liang MD Consulting Physician General Surgery 09/09/23
--- OUTSIDE RECORDS SUMMARY | 2024-10-11 11:26 | XMS_ITS | Encounter Summary ---
Author Organization [facility] Healthcare Address [address] [place] [address] Care Team Providers Care Burn Center Nurse Name Role Phone Mere Landa NP Unavailable [phone] Parmjit Dai MD Primary Care Provider [phone] Tico Burton MD Unavailable [phone] Ivan Liang MD Unavailable Reason for Visit * Reason Onset Date Comments Scheduling Appointments 06/19/2021 confirmi ng mammogram appt Encounter Details Date Type Department Care Team (Late st Contact Info) Description 06/19/2021 Telephone [facility] [address] [place] [phone] Cheryl Trejo RT Scheduling Appointments (confirming mammogram [...] on file Legal Sex Female 10:06 AM CALL CENTER SUPPORT REPRESENTATIVE Gender Identity Female 06/17/2024 7:02 AM CDT Sexual Orientation Not on file documented as of this encounter Plan of Treatment Upcoming Encounters Date Type Department Care Team (Latest Contact Info) Description 10/19/2024 8:30 AM CALL CENTER SUPPORT REPRESENTATIVE Hospital Encounter [facility] [address] [place] [phone] Forest Catherine MD [address] [address] 10/19/2024 8:30 AM CALL CENTER SUPPORT REPRESENTATIVE - 10/19/2024 9:00 AM CALL CENTER SUPPORT REPRESENTATIVE Surgery [facility] [address] [place] [phone] Forest Catherine MD [address] [address] EGD w/Endo Flip & YI placement Scheduled Procedures Name Priority Associated Diagnoses Date/Ti me ESOPHAGOGASTRODUODENOSCOPY Hiatal hernia Gastroesophageal reflux disease, unspecified whether esophagitis present 10/19/2024 8:30 AM CALL CENTER SUPPORT REPRESENTATIVE documented as of this encounter Visit Diagnoses Not on filedocumented in this encounter Additional Health Concerns Infection Onset Date Last Indicated Resolved Time COVID: Suspected 06/09/2022 06/09/2022 06/09/2022 11:28 PM CDT COVID: Suspected 07/06/2022 07/06/2022 07/06/2022 3:52 AM CALL CENTER SUPPORT REPRESENTATIVE COVID: Suspected 08/18/2022 08/18/2022 08/18/2022 12:59 AM CALL CENTER SUPPORT REPRESENTATIVE COVID: Suspected 09/19/2023 09/19/2023 09/19/2023 11:01 AM CALL CENTER SUPPORT REPRESENTATIVE C. difficile suspected 07/21/2024 07/21/202407/22 3:05 AM CALL CENTER SUPPORT REPRESENTATIVE documented as of this encounter Care Teams Burn Center Nurse Relationship Specialty Start Date End Date Parmjit Dai MD PCP - General 12/31/20 Mere Landa V. PHARMACIST'S AIDE Nurse Practitioner 02/07/20 Tico Burton MD Surgeon General Surgery 08/09/21 Ivan Liang MD Consulting Physician General Surgery 09/09/23 documented as of this encounter
--- OUTSIDE RECORDS SUMMARY | 2024-10-11 11:26 | XMS_ITS | Clinical Summary ---
Author Organization [facility] Address [address] [facility] [place] [address] Care Team Providers Care Director Of Perioperative Services Name Role Phone Mandeep Pennington DO Primary Care Provider [phone] Source Comments [facility],non-owned Affiliates and Associated Physician Practices is amultiple site organization consisting of ambulatory clinics and hospital sitesin [place], [place], [place] and [place]. This disclosure is being madepursuant to the Care Everywhere program and may not contain all information available regarding this patient. Last updated 18.[facility] Allergies Active Allergy Reactions Criticality Noted Date [...] 06/07/2024 7:12 AM CDT Performed at: [address] [id number] Elevator Attendant: Edmundo Dias PhD, Phone: [phone] Rolando Castro DO LAB - CHEMISTRY [facility] INSURANCE BILL [address] [place] [address] from Last 3 Months or Most Recently Relevant to Health Maintenance Care Teams Director Of Perioperative Services Relationship Specialty Start Date End Date Mandeep Pennington DO [address] [place] [address] PCP - General Internal Medicine 06/30/24
--- OUTSIDE RECORDS SUMMARY | 2024-10-11 11:26 | XMS_ITS | Clinical Summary ---
Author Organization [facility] HealthCare Care Team Providers Care Software Project Lead Name Role Phone Mere Landa NP Unavailable [phone] Parmjit Dai MD Primary Care Provider [phone] Tico Burton MD Unavailable [phone] Ivan Liang MD Unavailable Allergies Active Allergy [...] 09/03/2023 Assessment & Plan (09/17/2023 9:54 AM OCEANOGRAPHY TEACHER): Diet as tolerates. Continue bowel regimen if needed to avoid straining. No submerging incision for 1 more week. Light duty for another 2 weeks. Patient will call us back with any further questions or concerns. Assessment & Plan (09/03/2023 8:54 AM OCEANOGRAPHY TEACHER): I will discuss her case with GI. [...] (09/10/2022): Added automatically from request for surgery [id number] Cyclical vomiting 09/05/2022 Gastritis 09/05/2022 Gastroesophageal reflux [...] 08/13/2021 Assessment & Plan (08/13/2021 9:33 AM OCEANOGRAPHY TEACHER): Pt complains of pain with urination. Pt also complains of suprapubic pain. Plan - Urine analysis TIA (transient ischemic attack) 08/11/2021 Assessment & Plan (08/13/2021 9:29 AM OCEANOGRAPHY TEACHER): Sarahy Gill 51-year-old female presenting with left [...] mg Assessment & Plan (08/12/2021 6:00 PM OCEANOGRAPHY TEACHER): Sarahy Gill 51-year-old female presenting with left [...] recommendations Assessment & Plan (08/09/2021 6:14 PM OCEANOGRAPHY TEACHER): Patient has a history of IBS with [...] agitation/anxiety Assessment & Plan (08/13/2021 9:30 AM OCEANOGRAPHY TEACHER): Currently mood at baseline. Continue home med Celexa Assessment & Plan (08/12/2021 5:53 PM OCEANOGRAPHY TEACHER): Currently mood at baseline. Continue home med Celexa Assessment & Plan (08/09/2021 6:30 PM OCEANOGRAPHY TEACHER): Per patient has a history of bipolar depressive type Stable at this time Not currently on any medication Patient denies any suicidal homicidal ideation Intussusception intestine (CMS/HCC) 08/09/2021 Assessment & Plan (08/09/2021 6:36 PM OCEANOGRAPHY TEACHER): 08/08/2021 CT abdomen/pelvis with contrast: Possible cystitis, [...] q.day Assessment & Plan (08/13/2021 9:29 AM OCEANOGRAPHY TEACHER): Blood pressure has been under control Metoprolol restarted Assessment & Plan (08/12/2021 5:49 PM OCEANOGRAPHY TEACHER): Blood pressure has been under control Metoprolol has been on hold-to allow for permissive hypertension for the next 24 hours, will restart tomorrow Assessment & Plan (08/09/2021 6:31 PM OCEANOGRAPHY TEACHER): Have reviewed 24 hour blood pressures and [...] consult: Assessment & Plan (08/09/2021 6:12 PM OCEANOGRAPHY TEACHER): CT abdomen pelvis with contrast at [place] yesterday showed intussusception CT abdomen pelvis with contrast at [facility]: Showed resolution of intussusception Patient has generalized [...] monitor Assessment & Plan (08/13/2021 9:29 AM OCEANOGRAPHY TEACHER): Currently in sinus rhythm. Eliquis on hold will resume on August 15. Continue with flecainide Metoprolol restarted Assessment & Plan (08/12/2021 5:54 PM OCEANOGRAPHY TEACHER): Currently in sinus rhythm. Eliquis on hold will resume on August 15. Continue with flecainide Metoprolol on hold will resume tomorrow Assessment & Plan (08/09/2021 6:18 PM OCEANOGRAPHY TEACHER): No acute events since admission Patient on Eliquis Metoprolol for rate control with hold parameters Will continue to monitor Essential tremor 10/12/2018 Assessment & Plan (08/13/2021 9:30 AM OCEANOGRAPHY TEACHER): B/l hand with tremor - no changes in strength Assessment & Plan (08/09/2021 6:30 PM OCEANOGRAPHY TEACHER): Patient reports after waking up had increase [...] consult Assessment & Plan (08/13/2021 9:30 AM OCEANOGRAPHY TEACHER): Currently in no acute exacerbation. -continue Bentyl Assessment & Plan (08/12/2021 5:47 PM OCEANOGRAPHY TEACHER): Currently in no acute exacerbation. -continue Bentyl Assessment & Plan (08/09/2021 6:15 PM OCEANOGRAPHY TEACHER): Patient on Bentyl Monitoring electrolytes Assessment & [...] ibs-d. Will get all the records from [place] and then regroup to discuss possible treatment options. Orthostatic dizziness 09/16/2016 Palpitations 07/29/2016 Migraine headache 07/29/2016 Assessment & Plan (12/18/2021 4:59 PM CDT): Started home Topamax Assessment & Plan (08/09/2021 6:17 PM OCEANOGRAPHY TEACHER): Patient not complaining of headache or migraines at this time Sumatriptan on hold Hypokalemia Encounters Date Type Department Care Team Description 09/08/2024 Telephone [facility] ([facility]) - [facility] Minimally Invasive Surgery [address], [place] [phone] Socorro Ruano 09/06/2024 Telephone [facility] [address] [place] [phone] Michael Sanchez, KIET 09/06/2024 Telephone [facility] [address] [place] [phone] Michael Sanchez RN 09/06/2024 Telephone [facility] ([facility]) - [facility] Minimally Invasive Surgery [address], [place] [phone] Say Davila MD PhD Medical Question/Miscellaneo us 09/06/2024 Telephone [facility] ([facility]) - [facility] Minimally Invasive Surgery [address], [place] [phone] Say Davila MD PhD Medical Question/Miscellaneo us 09/05/2024 Telephone [facility] [address] [place] [address] [address]th [place] [address] [place] [phone] Katerine Blanco, RN AC Hold - Eliquis 09/02/2024 Orders Only [facility] [address] [place] [phone] Ary Carter LPN 09/02/2024 Telephone [facility] [address] [place] [phone] Michael Sanchez RN 09/01/2024 Telephone [facility] [address] [place] [address] [place] [phone] Carloz Katharine 08/08/2024 E-Visit [facility] [address] [facility] [address] [place] [phone] Rose Negron MD Follow up visit with my primary physician 07/30/2024 Orders Only [facility] Scanning, Provider 07/21/2024 Orders Only [facility] [place] [address] [place] [address] Rose Negron MD Chronic nausea (Primary Dx); Diarrhea, unspecified type 07/20/2024 Orders Only [facility] [place] [address] [place] [address] Rose Negron MD from Last [...] on occasion [facility] Utilities Answer Date Recorded In the past [...] often do you attend chur ch or roman catholic services? Never 09/09/2023 Do you belong [...] place to sleep or slept in a halfway (including now)? No 09/09/2023 Personal Safety Answer Date Recorded Have you ever been in or are you currently in a harmful physical or emotional relationship or is someone making you feel afraid or unsafe? Denies 02/08/2024 Comments No Sex and Gender Information Value Date Recorded Sex Assigned at Not on file Legal Sex Female 10:06 AM OCEANOGRAPHY TEACHER Gender Identity Female 06/17/2024 7:02 AM CDT [...] (Latest Contact Info) Description 10/19/2024 8:30 AM OCEANOGRAPHY TEACHER Hospital Encounter [facility] [address] [place] [phone] Forest Catherine MD [address] [address] 10/19/2024 8:30 AM OCEANOGRAPHY TEACHER - 10/19/2024 9:00 AM OCEANOGRAPHY TEACHER Surgery [facility] [address] [place] [phone] Forest Catherine MD [address] [address] EGD w/Endo Flip & YI placement Scheduled Procedures Name Priority Associated Diagnoses Date/Ti me ESOPHAGOGASTRODUODENOSCOPY Hiatal hernia Gastroesophageal reflux disease, unspecified whether esophagitis present 10/19/2024 8:30 AM OCEANOGRAPHY TEACHER Health Maintenance Due Date Last Done Comments [...] mammogram, encounter for COLONOSCOPY 10/29/2022 7:59 AM OCEANOGRAPHY TEACHER from Last 3 Months or Most Recently [...] nal Result * COLONOSCOPY (10/29/2022 7:59 AM OCEANOGRAPHY TEACHER) Anatomical Region Laterality Modality Other Narrative Procedure Note Germania Sorto MD - 10/29/2022 7:59 AM CST [facility] Patient Name: Sarahy Gill Procedure Date: 10/29/2022 7:59 AM Date of : 1970 Admit Type: Outpatient Age: 52 Gender: Female Attending MD: Germania Sorto M.D. Room: [facility] ENDOSCOPY [facility]OM 1 Note Status: Finalized Patient Profile: This is a 52 year old female. Patient was recently hospitalized with acute colitis. Colonoscopy for follow-up evaluation. No family history of coloncancer Procedure: Colonoscopy Indications: Last colonoscopy within the past 3 years, Follow-upof colitis Referring MD: Parmjit aDi M.D. Providers: Germania Sorto M.D. Impression: - [...] under direct vision. The Pediatric Colonoscope PCF-H190L [id number] was introducedthrough the anus and advanced to [...] 7:59 AM Procedure Code(s): --- Professional --- 54515, Colonoscopy, flexible; with biopsy, single or multiple Diagnosis Code(s): --- Professional --- K64.8, Other hemorrhoids D12.3, Benign neoplasm of transverse colon (hepatic flexure orsplenic flexure) K52.9, Noninfective gastroenteritis and colitis, unspecified CPT copyright 2020 [employer]. All rights reserved. The codes documented in this report are preliminary and upon do all operator reviewmay be revised to meet current compliance requirements. Recognized by the [employer] for promoting quality in endoscopy Germania Sorto MD ENDOSCOPY PROCEDURES Final Result from Last 3 Months or Most Recently Relevant to Health Maintenance Insurance [facility] MEDICARE SOLUTIONS [employer] MEDICARE SOLUTIONS [employer]ANCE Advance Directives For more information, please contact: [phone] Documents on File Type Date Recorded Patient Liquid Loader Expl anation ADVANCE DIRECTIVE 08/14/2021 9:12 AM Raz r of Law Researcher-Medical * Full Code (Latest Code Status on [...] 8:07 AM 10/29/2022 2:30 PM Care Teams Software Project Lead Relationship Specialty Start Date End Date Parmjit Dai MD PCP - General 12/31/20 Mere Landa NP Nurse Practitioner 02/07/20 Tico Burton MD Surgeon General Surgery 08/09/21 Ivan Liang MD Consulting Physician General Surgery 09/09/23
[2024-10-11 12:12] VITALS: BP 114/58; PULSE 78; RESP 18; O2SAT 100
[2024-10-11] MEDS: ACETAMINOPHEN 500 MG TABLET 1000 MG PO (12:24)
[2024-10-11] MEDS: HALOPERIDOL LACTATE 5 MG/ML VIAL 2.5 MG IV PUSH (12:25)
[2024-10-11] MEDS: diphenhydrAMINE HCl INJ 50 MG/ML VIAL 25 MG IV PUSH (12:58)
== END 2024-10-11 13:19 | disposition home or self-care (01) ==
PROVIDERS: Emergency Medicine; Emergency Provider Physician Assistant
DX: J10.1 Influenza due to other identified influenza virus with other respiratory manifestations (principal); R11.2 Nausea with vomiting, unspecified; Z20.822 Contact with and (suspected) exposure to COVID-19; F17.210 Nicotine dependence, cigarettes, uncomplicated; D64.9 Anemia, unspecified; Z86.73 Personal history of transient ischemic attack (TIA), and cerebral infarction without residual deficits; E78.5 Hyperlipidemia, unspecified; I48.91 Unspecified atrial fibrillation; K21.9 Gastro-esophageal reflux disease without esophagitis; F41.9 Anxiety disorder, unspecified; F32.A Depression, unspecified
CPT/HCPCS: 36415; 74177; 80053; 83735; 85025; 87637; 96361; 96374; 96375; 99284; A9270; J1200; J1630; J2405; J7030; Q9967

== ENCOUNTER 2024-10-26 11:18 | Outpatient (CLI) | payer OTHER, MEDICARE, SELFPAY ==
--- NOTE | ~2024-10-26 | XR_ITS ---
CHEST RADIOGRAPH, PA AND LATERAL CLINICAL HISTORY: R05.9 - Cough, unspecified . COMPARISON: 07/31/2024 TECHNIQUE: PA and lateral views of the chest. FINDINGS The cardiomediastinal silhouette is unremarkable. The lungs are clear. Visualized osseous structures and soft tissues are unremarkable. IMPRESSION: No focal infiltrate or effusion. Reviewed, dictated and finalized at location A. WORKER
== END 2024-10-26 11:19 | disposition home or self-care (01) ==
LOC: GOSHIMG 11:18
PROVIDERS: PCP Nurse Practitioner; Visit Provider Nurse Practitioner
DX: R05.9 Cough, unspecified (principal)
CPT/HCPCS: 71046

== ENCOUNTER 2024-11-24 17:19 | Emergency (ER) | payer OTHER, MEDICARE, SELFPAY ==
--- NOTE | 2024-11-24 17:21 | ED_ITS ---
HPI - Ear Problem General Chief complaint: Ear Stated complaint: SORE THROAT/EARACHE Time Seen by Provider: 11/24/24 17:21 Source: patient Mode of arrival: ambulatory Limitations: no limitations History of Present Illness HPI Narrative: Sarahy is a 54-year-old female patient presenting to the clinic today with complaints of left-sided sore throat, left-sided ear pain, and urinary frequency. She reports symptoms started last night and got worse today. Also notice urinary frequency today. Denies any burning with urination but thinks she may be starting to get a UTI. No fevers, chills, body aches. Does have nasal congestion Related Data Home Medications ?Medication ?Instructions ?Recorded ?Confirmed ?Last Taken ?Type aluminum-mag hydroxide-simethicone 10 ml PO QID PRN Acid Reflux 05/28/20 11/07/24 07/23/24 History 400 mg-400 mg-40 mg/5 mL oral susp (Mylanta Maximum Strength) simethicone 125 mg chewable tablet 125 mg PO QID PRN Abdominal 05/28/20 11/07/24 04/24/21 21:00 History (Gas-X Extra Strength) Discomfort apixaban 5 mg tablet (Eliquis) 5 mg PO BID 10/23/23 11/24/24 07/30/24 History atorvastatin 40 mg tablet 40 mg PO QHS 10/23/23 11/24/24 07/29/24 History famotidine 20 mg tablet 20 mg PO DAILY PRN Acid Reflux 10/23/23 11/07/24 07/30/24 History metoprolol succinate 25 mg 25 mg PO DAILY 10/23/23 11/24/24 07/30/24 History tablet,extended release 24 hr flecainide 100 mg tablet 100 mg PO Q12H 10/29/23 11/24/24 07/30/24 History pantoprazole 40 mg tablet,delayed 40 mg PO BID 01/04/24 11/24/24 07/30/24 History release buspirone 10 mg tablet 10 mg PO BID 07/07/24 11/24/24 07/30/24 History dicyclomine 10 mg capsule 20 mg PO BID PRN cramping 07/31/24 11/07/24 07/30/24 History Allergies Allergy/AdvReac Type Severity Reaction Status Date / Time prochlorperazine AdvReac Severe Confusion Verified 11/24/24 17:29 metoclopramide (From Reglan) AdvReac Intermediate anxiety Verified 11/24/24 17:29 azithromycin AdvReac Unknown STOMACH Verified 11/24/24 17:29 UPSET promethazine (From Phenergan) AdvReac Jittery Verified 11/24/24 17:29 Review of Systems Review of Systems: Pertinent positives per HPI. Patient denies any fever, chills, rash, headache, visual changes, dizziness, cough, shortness of breath, chest pain, palpitations, nausea, vomiting, diarrhea, constipation, abdominal pain, or any urinary issues. [facility] Past Medical History Medical History Foot pain, right Achilles tendon contracture, right Chondromalacia of right knee Anemia History of TIA (transient ischemic attack) Irritable bowel syndrome with constipation History of hyperlipidemia History of atrial fibrillation History of gastroesophageal reflux (GERD) Adenomatous colon polyp Atrial fibrillation Arthritis GERD (gastroesophageal reflux disease) Celiac disease Diverticulosis Anxiety and depression Neuropathy Migraine headache Surgical History Surgical History History of colonoscopy with polypectomy (03/2021) And repeat colonoscopy 2022 Status post lateral meniscectomy of right knee (07/2024) Hx of emergency section History of appendectomy History of delivery History of tubal ligation History of Gary fundoplication History of cholecystectomy Family History Family History Mother Family history of elevated blood lipids Family history of arthritis Sibling Family history of arthritis Grandparent Cerebrovascular accident Family history of cardiovascular disease Hypertension Diabetes mellitus Other Heart disease Acute myocardial infarction Father Alcoholism Mother Alcoholism Depression Anxiety Grandparent Throat cancer Cerebrovascular accident Heart problem Social History Social History Social History: She lives at home with her of 6 years. This is her 3rd marriage. She had 6 children. One son and 5 daughters. She smoked half pack of cigarettes per day since she was 14 years old but switched to vaping nicotine several years ago. She rarely drinks alcohol and only minute amounts. She uses marijuana daily. Code status: Full code (she would not want to be on the ventilator long-term or if she had no quality of life ) Surrogate decision maker: Smoking packs per day: 0.5 Smoking cigarettes per day: 10.0 Years smoked: 15 Smoking pack-years: 7.50 Smoking status: Former smoker Tobacco type: cigarettes and e-cigarettes/vaping Second hand tobacco smoke exposure: No Smoking end date: 07/07/02 Additional smoking assessment comments: Currently vapes. Alcohol intake: never Substance use: current Substance use type: marijuana Other substance usage details: Daily Last use: 07/30/24 Do You Feel Safe in your Home?: Yes Lack of Transportation: No Lack of Food: Never True Current Housing: Decline to Answer Concerned About Future Housing: Decline to Answer Difficulty Paying Gas/Electric Bills: Decline to Answer Difficulty Paying for Meds: Decline to Answer Currently Unemployed: Decline to Answer Education: Decline to Answer Difficulty w/ Childcare or Family Care: Decline to Answer Living arrangements: with family Occupation/Education: other Additional occupation/education comments: disabled Gender identity (if verbalized by the patient): Female Sexual Orientation (if Verbalized by the Patient): Straight or Heterosexual Spiritual care concerns: No Comments At the time of my signature, I reviewed and agree with the nursing past medical, surgical, social, and family history. There is no relevant family history pertinent to the patient complaint. Exam Narrative: General: Well-developed, well nourished, in no apparent distress Head: Normocephalic, atraumatic Eyes: Pupils equally round and reactive to light bilaterally, EOM intact, sclera and conjunctive clear, no discharge, lids normal Ears: TMs intact and congested, mild bulging of the left TM, tenderness to palpation over the eustachian tube, ear canals clear, no drainage, grossly hearing normal. Nose: Nares patent, clear discharge, no inflammation, no sinus tenderness. Mouth: Oropharynx without lesions or masses, good dentition, MMM. Neck: Supple, trachea midline, no enlargement of anterior or posterior cervical nodes, no thyroid masses or goiter palpable. Cardio: Regular rate and rhythm, s1 and s2 normal, no murmur appreciated. Resp: Clear to auscultation bilaterally anteriorly and posteriorly, no rhonchi, rales, wheezing or rubs Abdomen: Soft, pliable, bowel sounds present in all quadrants, non-tender to palpation, no organomegly, no CVAT tenderness. Course Course Emergency Course: Portions of this record may have been created with voice recognition software. Level of Care: Express Care Visit Vital Signs Vital signs: Vital Signs Temperature 37.3 C 11/24/24 17:31 Pulse Rate 65 11/24/24 17:31 Respiratory Rate 16 11/24/24 17:31 Blood Pressure 114/68 11/24/24 17:31 Pulse Oximetry 99 11/24/24 17:31 Temperature 37.3 C 11/24/24 17:31 Pulse Rate 65 11/24/24 17:31 Respiratory Rate 16 11/24/24 17:31 Blood Pressure 114/68 11/24/24 17:31 Pulse Oximetry 99 11/24/24 17:31 Vital signs reviewed Medical Decision Making MDM Narrative Medical decision making narrative: At the time of visit patient is resting comfortably on the exam table. Patient appears to be nontoxic. Labs: Strep test was negative in the clinic today. Urinalysis shows trace of leukocytes. We will send urine for culture. Plan: I suspect patient has urinary frequency with left-sided eustachian tube dysfunction. Prescription for prednisone was sent to the pharmacy. Supportive measures were discussed with the patient and they voiced understanding discharge instructions and agrees to treatment plan. Return precautions reviewed Differential Diagnosis Differential Diagnosis: Otitis media, otitis externa, eustachian tube dysfunction, cerumen impaction, upper respiratory infection, serous otitis Vital Signs Vital Signs: Vital Signs Temperature 37.3 C 11/24/24 17:31 Pulse Rate 65 11/24/24 17:31 Respiratory Rate 16 11/24/24 17:31 Blood Pressure 114/68 11/24/24 17:31 Pulse Oximetry 99 11/24/24 17:31 Temperature 37.3 C 11/24/24 17:31 Pulse Rate 65 11/24/24 17:31 Respiratory Rate 16 11/24/24 17:31 Blood Pressure 114/68 11/24/24 17:31 Pulse Oximetry 99 11/24/24 17:31 Lab Data Labs: Lab Results 11/24/24 11/24/24 Range/Units 17:39 17:43 POC Urine Color Yellow Yellow POC Urine Clarity Clear Clear POC Urine pH 7.0 7.0 POC Ur Specif [place] 1.010 1.010 POC Urine Protein Negative Negative (Negative) POC Ur Glucose (UA) Negative Negative (Negative) POC Urine Ketones Negative Negative (Negative) POC Urine Blood Negative Negative (Negative) POC Urine Nitrite Negative Negative (Negative) POC Urine Bilirubin Negative Negative (Negative) POC Urine Urobilinogen 0.2 0.2 POC U Leukocyte Esteras Trace Trace (Negative) POC Grp A Strep Screen Negative (Negative) Discharge Plan Discharge Clinical Impression: Increased urinary frequency Eustachian tube dysfunction Qualifiers: Laterality: left Qualified Code(s): H69.92 - Unspecified Eustachian tube disorder, left ear Pharyngitis Qualifiers: Pharyngitis/tonsillitis etiology: unspecified etiology Qualified Code(s): J02.9 - Acute pharyngitis, unspecified Patient Disposition: Home, Self-Care Condition: Stable Instructions: Antibiotic Form, Strep Throat (ED), Earache (ED), Urinary Urgency and Frequency (DC) Additional Instructions: URI/pharyngitis discharge instructions Take prednisone as directed Increase fluids and stay well hydrated Tylenol/motrin for pain/fever Flonase and OTC antihistamines such as Zyrtec or Claritin as directed Vicks vapor rub to open sinuses Sinus rinses for congestion Cepacol spray, cough drops, throat lozenges, warm tea with honey/lemon, gargle salt water to soothe throat BRAT diet for diarrhea Clear liquids x 24 hours then advance as tolerated for nausea/vomiting Go to the ED if you develop a worsening in your condition- high fever not controlled by Tylenol or Motrin, dehydration, weakness, lethargy, shortness of breath, or chest pain. Follow up with your PCP in 3-5 days if symptoms persist. Urinary frequency discharge instructions Urinalysis positive for trace leukocytes. We will send urine for culture Increase fluids and stay well hydrated Wipe front to back. May use wet wipes. Avoid tub baths If sexually active- pee before and after intercourse. Wear cotton panties Avoid tight clothing up against the genitals Follow up with your PCP in 1 week if symptoms persist. Patient Language: Andorran Prescriptions: New prednisone 20 mg tablet 40 mg PO DAILY 5 Days Qty: 10 0RF No Action metoprolol succinate 25 mg tablet extended release 24 hr 25 mg PO DAILY atorvastatin 40 mg tablet 40 mg PO QHS famotidine 20 mg tablet 20 mg PO DAILY PRN (Reason: Acid Reflux) Eliquis 5 mg tablet 5 mg PO BID flecainide 100 mg tablet 100 mg PO Q12H pantoprazole 40 mg tablet,delayed release (DR/EC) 40 mg PO BID buspirone 10 mg tablet 10 mg PO BID dicyclomine 10 mg capsule 20 mg PO BID PRN (Reason: cramping) simethicone [Gas-X Extra Strength] 125 mg Tablet,Chewable 125 mg PO QID PRN (Reason: Abdominal Discomfort) Patient Comments: Patient states that she takes one between meals. alum-mag hydroxide-simeth [Mylanta Maximum Strength] 400-400-40 mg/5 mL Suspension 10 ml PO QID PRN (Reason: Acid Reflux) Patient Comments: Patient states she takes in between meals and before bed. acetaminophen 500 mg tablet 500 mg PO Q6H PRN (Reason: pain) Qty: 30 0RF meclizine 12.5 mg tablet 12.5 mg PO TID PRN (Reason: dizziness) Qty: 10 0RF ondansetron 4 mg tablet,disintegrating 4 mg PO Q8H PRN (Reason: nausea and vomiting) Qty: 15 0RF amitriptyline 10 mg tablet See Rx Instructions .ROUTE .COMPLEX Qty: 30 2RF Dose Instruction: TAKE 1 TABLET BY MOUTH EVERYDAY AT BEDTIME Rx Instructions: TAKE 1 TABLET BY MOUTH EVERYDAY AT BEDTIME Follow-up/Referrals: Mandeep Pennington DO [Primary Care Provider] - Time of Disposition: 17:45 Quality NIHSS Nursing Documentation ED NIHSS nursing documentation: reviewed/agree
[2024-11-24 17:31] VITALS: BP 114/68; PULSE 65; RESP 16; TEMP 37.3; O2SAT 99
[2024-11-24 17:42] LABS: EDSTREPNEGPOS1 Negative (Negative); EDUAAPPEAR Clear; EDUABILI Negative (Negative); EDUABLOOD Negative (Negative); EDUACOLOR1 Yellow; EDUAGLUCOSE Negative (Negative); EDUAKETONE Negative (Negative); EDUALEUKO Trace (Negative); EDUANITRATE Negative (Negative); EDUAPROTEIN Negative (Negative); EDUAUROBILI 0.2
[2024-11-24 17:46] LABS: EDUAAPPEAR Clear; EDUABILI Negative (Negative); EDUABLOOD Negative (Negative); EDUACOLOR1 Yellow; EDUAGLUCOSE Negative (Negative); EDUAKETONE Negative (Negative); EDUALEUKO Trace (Negative); EDUANITRATE Negative (Negative); EDUAPROTEIN Negative (Negative); EDUAUROBILI 0.2
== END 2024-11-24 17:50 | disposition home or self-care (01) ==
PROVIDERS: Emergency Provider Nurse Practitioner Family; PCP Internal Medicine
DX: R35.0 Frequency of micturition (principal); H69.92 Unspecified Eustachian tube disorder, left ear; J02.9 Acute pharyngitis, unspecified; F17.290 Nicotine dependence, other tobacco product, uncomplicated; I48.91 Unspecified atrial fibrillation; K21.9 Gastro-esophageal reflux disease without esophagitis; M19.90 Unspecified osteoarthritis, unspecified site; K90.0 Celiac disease; G62.9 Polyneuropathy, unspecified; E78.5 Hyperlipidemia, unspecified; Z86.73 Personal history of transient ischemic attack (TIA), and cerebral infarction without residual deficits; F41.9 Anxiety disorder, unspecified; F32.A Depression, unspecified
CPT/HCPCS: 81003; 87081; 87086; 87880; 99213; G0463

== ENCOUNTER 2024-12-07 09:59 | Outpatient (CLI) | payer OTHER, MEDICARE, SELFPAY ==
--- OUTSIDE RECORDS SUMMARY | 2024-12-07 11:14 | XMS_ITS | Referral Summary ---
Author Organization [facility] Care Team Providers Care Powder Hand Name Role Phone Mere Landa NP Unavailable [phone] Parmjit Dai MD Primary Care Provider [phone] Tico Burton MD Unavailable [phone] Ivan Liang MD Unavailable Encounters Date Type Department Care Team Description 11/25/2024 Telephone [facility] [place] [address] Julia Wyman, KIET 11/11/2024 Telephone [facility] Gastroenterology [address] [facility] [address] [place] [address] [place] [address] Katharine Carty Refill request 10/18/2024 Telephone [facility] [address] [place] [address] Julia Wyman, RN 09/08/[address] [facility] Advanced [facility]) - [facility] Minimally Invasive Surgery [facility] [facility] [address], [place] [address] Socorro Ruano from Last 3 Months Allergies Active Allergy [...] mouth daily Active atorvastatin (LIPITOR) 40 mg tabletIndicatio ns:hyperlipidem ia Take 1 tablet (40 mg total) by [...] 3 Active docusate sodium (COLACE) 100 mg capsuleIndicati ons:constipatio n Take 2 capsules (200 mg total) by [...] 3 4 Active linaCLOtide (LINZESS) 72 mcg capsuleIndicati ons:Constipatio n Predominant Irritable Bowel Syndrome Take 1 capsule (72 mcg total) by mouth daily 30 capsule 2 4 Active SUMAtriptan (IMITREX) 6 mg/0.5 mL injection [address] (PROTONIX) 40 mg EC tablet Take 1 tablet (40 mg total) by mouth 2 (two) times a day before breakfast and dinner 60 tablet 1 5 Active busPIRone (BUSPAR) 10 mg tabletIndicatio ns:Generalized Anxiety Disorder Take 1 tablet (10 mg total) by mouth 2 (two) times a day 60 tablet 1 5 025 Active busPIRone (BUSPAR) 10 mg tabletIndicatio ns:Generalized Anxiety Disorder Take 1 tablet (10 mg total) by mouth 2 (two) times a day 60 tablet 1 5 025 Discontin ued(Reord er) Active Problems Problem Noted Date Diagnosed Date 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 Continue bowel regimen if needed to avoid straining. No submerging incision for 1 more week. Light duty for another 2 weeks. Patient will call us back with any further questions or concerns. Assessment & Plan (09/03/2023 8:54 AM CHOKE SETTER): I will discuss her case with GI. [...] (09/10/2022): Added automatically from request for surgery [id number] Cyclical vomiting 09/05/2022 Gastritis 09/05/2022 Gastroesophageal reflux [...] 08/13/2021 Assessment & Plan (08/13/2021 9:33 AM CHOKE SETTER): Pt complains of pain with urination. Pt also complains of suprapubic pain. Plan - Urine analysis TIA (transient ischemic attack) 08/11/2021 Assessment & Plan (08/13/2021 9:29 AM CHOKE SETTER): Sarahy Theresa Gill 51-year-old female presenting with left facial [...] mg Assessment & Plan (08/12/2021 6:00 PM CHOKE SETTER): Sarahy Gill 51-year-old female presenting with left [...] recommendations Assessment & Plan (08/09/2021 6:14 PM CHOKE SETTER): Patient has a history of IBS with [...] agitation/anxiety Assessment & Plan (08/13/2021 9:30 AM CHOKE SETTER): Currently mood at baseline. Continue home med Celexa Assessment & Plan (08/12/2021 5:53 PM CHOKE SETTER): Currently mood at baseline. Continue home med Celexa Assessment & Plan (08/09/2021 6:30 PM CHOKE SETTER): Per patient has a history of bipolar depressive type Stable at this time Not currently on any medication Patient denies any suicidal homicidal ideation Intussusception intestine 08/09/2021 Assessment & Plan (08/09/2021 6:36 PM CHOKE SETTER): 08/08/2021 CT abdomen/pelvis with contrast: Possible cystitis, [...] q.day Assessment & Plan (08/13/2021 9:29 AM CHOKE SETTER): Blood pressure has been under control Metoprolol restarted Assessment & Plan (08/12/2021 5:49 PM CHOKE SETTER): Blood pressure has been under control Metoprolol has been on hold-to allow for permissive hypertension for the next 24 hours, will restart tomorrow Assessment & Plan (08/09/2021 6:31 PM CHOKE SETTER): Have reviewed 24 hour blood pressures and [...] consult: Assessment & Plan (08/09/2021 6:12 PM CHOKE SETTER): CT abdomen pelvis with contrast at [place] yesterday showed intussusception CT abdomen pelvis with contrast at [facility]: Showed resolution of intussusception Patient has generalized abdominal pain that is chronic in nature. Associated nausea and vomiting: On Zofran p.r.n. Atrial fibrillation 05/15/2020 Assessment & Plan (12/18/2021 4:41 PM CDT): Patient has history of AFib. Currently normal sinus rhythm. - Anticoagulation: Eliquis 5 mg b.i.d. - Rate control: Metoprolol XL 25 mg q.day, flecainide 50 mg b.i.d. - Pt on telemetry at this time - will continue to monitor Assessment & Plan (08/13/2021 9:29 AM CHOKE SETTER): Currently in sinus rhythm. Eliquis on hold will resume on August 15. Continue with flecainide Metoprolol restarted Assessment & Plan (08/12/2021 5:54 PM CHOKE SETTER): Currently in sinus rhythm. Eliquis on hold will resume on August 15. Continue with flecainide Metoprolol on hold will resume tomorrow Assessment & Plan (08/09/2021 6:18 PM CHOKE SETTER): No acute events since admission Patient on Eliquis Metoprolol for rate control with hold parameters Will continue to monitor Essential tremor 10/12/2018 Assessment & Plan (08/13/2021 9:30 AM CHOKE SETTER): B/l hand with tremor - no changes in strength Assessment & Plan (08/09/2021 6:30 PM CHOKE SETTER): Patient reports after waking up had increase [...] consult Assessment & Plan (08/13/2021 9:30 AM CHOKE SETTER): Currently in no acute exacerbation. -continue Bentyl Assessment & Plan (08/12/2021 5:47 PM CHOKE SETTER): Currently in no acute exacerbation. -continue Bentyl Assessment & Plan (08/09/2021 6:15 PM CHOKE SETTER): Patient on Bentyl Monitoring electrolytes Assessment & [...] ibs-d. Will get all the records from [place] and then regroup to discuss possible treatment options. Orthostatic dizziness 09/16/2016 Palpitations 07/29/2016 Migraine headache 07/29/2016 Assessment & Plan (12/18/2021 4:59 PM CDT): Started home Topamax Assessment & Plan (08/09/2021 6:17 PM CHOKE SETTER): Patient not complaining of headache or migraines at this time Sumatriptan on hold Hypokalemia Immunizations Immunization Administration Dates Next Due Influenza, Unspecified 07/01/2022,05/01/2021 Social History Tobacco Use Types Packs/Day Years Used Date Smoking Tobacco: Former Cigarettes 1 984 - 1999 Vaping Smokeless Tobacco: Never Tobacco Cessation:Counseling Given: Not Answered Comments:off and on Alcohol Use Standard Drinks/Week Comments No 0 (1 standard drink = 0.6 oz pur e alcohol) on occasion [facility] Utilities Answer Date Recorded In the past 12 months has [employer], gas, oil, or water [employer] threatened to shut off services in your [...] any clubs o r organizations such as catholic groups, unions, fraternal or athletic groups, or [...] on file Legal Sex Female 10:06 AM CHOKE SETTER Gender Identity Female 06/17/2024 7:02 AM CDT [...] 04/20/2024 2:59 PM CDT Plan of Treatment Not on file Procedures Procedure Name Priority Date/Time Associated Diagnosis Comments SCREENING MAMMOGRAM BILATERAL W BONG Schedule Routine, Read Routine (OP Routine) 11/11/2023 8:54 AM CDT Screening mammogram, encounter for COLONOSCOPY 10/29/2022 7:59 AM CHOKE SETTER from Last 3 Months or Most Recently Relevant to Health Maintenance Results * Screening Mammogram Bilateral W Bong [...] nal Result * COLONOSCOPY (10/29/2022 7:59 AM CHOKE SETTER) Anatomical Region Laterality Modality Other Narrative Procedure Note Germania Sorto MD - 10/29/2022 7:59 AM CST [facility] Patient Name: Sarahy Gill Procedure Date: 10/29/2022 7:59 AM Date of : 1970 Admit Type: Outpatient Age: 52 Gender: Female Attending MD: Germania Sorto M.D. Room: [facility] 1 Note Status: Finalized Patient Profile: [...] under direct vision. The Pediatric Colonoscope PCF-H190L [id number] was introducedthrough the anus and advanced to [...] 7:59 AM Procedure Code(s): --- Professional --- 83308, Colonoscopy, flexible; with biopsy, single or multiple Diagnosis Code(s): --- Professional --- K64.8, Other hemorrhoids D12.3, Benign neoplasm of transverse colon (hepatic flexure orsplenic flexure) K52.9, Noninfective gastroenteritis and colitis, unspecified CPT copyright 2020 [employer]. All rights reserved. The codes documented in this report are preliminary and upon digging machine operator reviewmay be revised to meet current compliance requirements. Recognized by the [employer] for promoting quality in endoscopy Germania Sorto MD ENDOSCOPY PROCEDURES Final Result from Last 3 Months or Most Recently Relevant to Health Maintenance Insurance IDPA [facility] MEDICARE [facility] Address: [address] [address] [place] [address] JOANAJOHN REGAN [facility] MEDICARE ADVANTAGE [facility] Address: [address] [address] [place] [address] CIGJOHN ALLEGIAN Advance Directives For more information, please contact: [phone] Documents on File Type Date Recorded Patient Car Knocker Expl anation ADVANCE DIRECTIVE 08/14/2021 9:12 AM Raz r of Pitching Coach-Medical * Full Code (Latest Code Status on [...] 8:07 AM 10/29/2022 2:30 PM Care Teams Powder Hand Relationship Specialty Start Date End Date Parmjit Dai MD PCP - General 12/31/20 Mere Landa NP Nurse Practitioner 02/07/20 iTco Burton MD Surgeon General Surgery 08/09/21 Ivan Liang MD Consulting Physician General Surgery 09/09/23
--- OUTSIDE RECORDS SUMMARY | 2024-12-07 11:14 | XMS_ITS | Clinical Summary ---
Author Organization [facility] Address [address] [place] [address] Phone Care Team Providers Care Varnisher Name Role Phone Parmjit Dai MD Primary Care Provider [phone] Jazmine Kulkarni MD Unavailable [phone] Mir Spencer MD Unavailable Allergies Active Allergy [...] Comments Blood Pressure 96/66 10/29/2023 8:05 AM INWARD TOLL OPERATOR Pulse 52 10/29/2023 8:05 AM INWARD TOLL OPERATOR Temperature 36.9 C (98.4 F) 10/16/2023 8:53 AM INWARD TOLL OPERATOR Respiratory Rate 20 10/29/2023 8:05 AM INWARD TOLL OPERATOR Oxygen Saturation 100% 10/16/2023 8:53 AM INWARD TOLL OPERATOR Inhaled Oxygen Concentration - - Weight 56.7 kg (125 lb) 10/29/2023 8:05 AM INWARD TOLL OPERATOR Height 162.6 cm (5' 4 ) 10/29/2023 8:05 AM INWARD TOLL OPERATOR Body Mass Index 21.46 10/29/2023 8:05 AM INWARD TOLL OPERATOR Plan of Treatment Health Maintenance Due [...] Immunochemical Fecal Occult Blood 06/10/2024 06/10/2023 Mammogram 11/10/2024 11/11/2023, 05/20/2022 Td Immunization Every 10 Years [...] age to complete this topic Insurance MEDICAID [place] MEDIC[facility] Care Teams Varnisher Relationship Specialty Start Date End Date Parmjit Dai MD [address] [place] [address] [address] [place] [address] PCP - General Family Medicine 05/21/22 Jazmine Kulkarni MD [address] [place] [address] [address] [place] [address] Family Medicine 05/21/22 Mir Spencer MD [address] [place] [address] Consulting Physician Urology 10/29/23
--- OUTSIDE RECORDS SUMMARY | 2024-12-07 11:14 | XMS_ITS | Encounter Summary ---
Author Organization [facility] Healthcare Address [address] [place] [address] Care Team Providers Care Fine Grade Operator Name Role Phone Mere Landa NP Unavailable [phone] Parmjit Dai MD Primary Care Provider [phone] Tico Burton MD Unavailable [phone] Ivan Liang MD Unavailable Reason for Visit * Reason Onset Date Comments Scheduling Appointments 06/19/2021 confirmi ng mammogram appt Encounter Details Date Type Department Care Team (Late st Contact Info) Description 06/19/2021 Telephone [facility] [address] [place] [id number] Cheryl Trejo RT Scheduling Appointments (confirming mammogram [...] on file Legal Sex Female 10:06 AM BACON SKINNER Gender Identity Female 06/17/2024 7:02 AM CDT Sexual Orientation Not on file documented as of this encounter Plan of Treatment Not on file documented as of this encounter Visit Diagnoses Not on filedocumented in this encounter Additional Health Concerns Infection Onset Date Last Indicated Resolved Time COVID: Suspected 06/09/2022 06/09/2022 06/09/2022 11:28 PM CDT COVID: Suspected 07/06/2022 07/06/2022 07/06/2022 3:52 AM BACON SKINNER COVID: Suspected 08/18/2022 08/18/2022 08/18/2022 12:59 AM BACON SKINNER COVID: Suspected 09/19/2023 09/19/2023 09/19/2023 11:01 AM BACON SKINNER C. difficile suspected 07/21/2024 07/21/202407/22 3:05 AM BACON SKINNER documented as of this encounter Care Teams Fine Grade Operator Relationship Specialty Start Date End Date Parmjit Dai MD PCP - General 12/31/20 Mere Landa V. GLOBAL IMPLEMENTATION MANAGER Nurse Practitioner 02/07/20 Tico Burton MD Surgeon General Surgery 08/09/21 Ivan Liang MD Consulting Physician General Surgery 09/09/23 documented as of this encounter
--- OUTSIDE RECORDS SUMMARY | 2024-12-07 11:14 | XMS_ITS | Clinical Summary ---
Author Organization [facility] HealthCare Care Team Providers Care Greige Goods Examiner Name Role Phone Mere Landa NP Unavailable [phone] Parmjit Dai MD Primary Care Provider [phone] Tico Burton MD Unavailable [phone] Ivan Liang MD Unavailable Allergies Active Allergy [...] 09/03/2023 Assessment & Plan (09/17/2023 9:54 AM ENVIRONMENTAL REMEDIATION SPECIALIST): Diet as tolerates. Continue bowel regimen if needed to avoid straining. No submerging incision for 1 more week. Light duty for another 2 weeks. Patient will call us back with any further questions or concerns. Assessment & Plan (09/03/2023 8:54 AM ENVIRONMENTAL REMEDIATION SPECIALIST): I will discuss her case with [...] (09/10/2022): Added automatically from request for surgery [id number] Cyclical vomiting 09/05/2022 Gastritis 09/05/2022 Gastroesophageal reflux [...] 12/18/2021 History of colonoscopy with polypectomy 10/07/19 Hepatic steatosis 10/04/2021 Periumbilical abdominal pain 09/24/2021 Irritable bowel syndrome wit h both constipation and diarrhea 09/24/2021 Chronic nausea 09/24/2021 History of repair of hiatal hernia 09/24/2021 Gastroesophageal reflux disease without esophagi tis 09/24/2021 Dysuria 08/13/2021 Assessment & Plan (08/13/2021 9:33 AM ENVIRONMENTAL REMEDIATION SPECIALIST): Pt complains of pain with urination. Pt also complains of suprapubic pain. Plan - Urine analysis TIA (transient ischemic attack) 08/11/2021 Assessment & Plan (08/13/2021 9:29 AM ENVIRONMENTAL REMEDIATION SPECIALIST): Sarahy Gill 51-year-old female presenting with [...] mg Assessment & Plan (08/12/2021 6:00 PM ENVIRONMENTAL REMEDIATION SPECIALIST): Sarahy Gill 51-year-old female presenting with [...] recommendations Assessment & Plan (08/09/2021 6:14 PM ENVIRONMENTAL REMEDIATION SPECIALIST): Patient has a history of IBS [...] agitation/anxiety Assessment & Plan (08/13/2021 9:30 AM ENVIRONMENTAL REMEDIATION SPECIALIST): Currently mood at baseline. Continue home med Celexa Assessment & Plan (08/12/2021 5:53 PM ENVIRONMENTAL REMEDIATION SPECIALIST): Currently mood at baseline. Continue home med Celexa Assessment & Plan (08/09/2021 6:30 PM ENVIRONMENTAL REMEDIATION SPECIALIST): Per patient has a history of bipolar depressive type Stable at this time Not currently on any medication Patient denies any suicidal homicidal ideation Intussusception intestine 08/09/2021 Assessment & Plan (08/09/2021 6:36 PM ENVIRONMENTAL REMEDIATION SPECIALIST): 08/08/2021 CT abdomen/pelvis with contrast: Possible [...] q.day Assessment & Plan (08/13/2021 9:29 AM ENVIRONMENTAL REMEDIATION SPECIALIST): Blood pressure has been under control Metoprolol restarted Assessment & Plan (08/12/2021 5:49 PM ENVIRONMENTAL REMEDIATION SPECIALIST): Blood pressure has been under control Metoprolol has been on hold-to allow for permissive hypertension for the next 24 hours, will restart tomorrow Assessment & Plan (08/09/2021 6:31 PM ENVIRONMENTAL REMEDIATION SPECIALIST): Have reviewed 24 hour blood pressures [...] consult: Assessment & Plan (08/09/2021 6:12 PM ENVIRONMENTAL REMEDIATION SPECIALIST): CT abdomen pelvis with contrast at [place] yesterday showed intussusception CT abdomen pelvis with contrast at [facility]: Showed resolution of intussusception Patient has generalized [...] monitor Assessment & Plan (08/13/2021 9:29 AM ENVIRONMENTAL REMEDIATION SPECIALIST): Currently in sinus rhythm. Eliquis on hold will resume on August 15. Continue with flecainide Metoprolol restarted Assessment & Plan (08/12/2021 5:54 PM ENVIRONMENTAL REMEDIATION SPECIALIST): Currently in sinus rhythm. Eliquis on hold will resume on August 15. Continue with flecainide Metoprolol on hold will resume tomorrow Assessment & Plan (08/09/2021 6:18 PM ENVIRONMENTAL REMEDIATION SPECIALIST): No acute events since admission Patient on Eliquis Metoprolol for rate control with hold parameters Will continue to monitor Essential tremor 10/12/2018 Assessment & Plan (08/13/2021 9:30 AM ENVIRONMENTAL REMEDIATION SPECIALIST): B/l hand with tremor - no changes in strength Assessment & Plan (08/09/2021 6:30 PM ENVIRONMENTAL REMEDIATION SPECIALIST): Patient reports after waking up had [...] consult Assessment & Plan (08/13/2021 9:30 AM ENVIRONMENTAL REMEDIATION SPECIALIST): Currently in no acute exacerbation. -continue Bentyl Assessment & Plan (08/12/2021 5:47 PM ENVIRONMENTAL REMEDIATION SPECIALIST): Currently in no acute exacerbation. -continue Bentyl Assessment & Plan (08/09/2021 6:15 PM ENVIRONMENTAL REMEDIATION SPECIALIST): Patient on Bentyl Monitoring electrolytes Assessment [...] ibs-d. Will get all the records from [place] and then regroup to discuss possible treatment options. Orthostatic dizziness 09/16/2016 Palpitations 07/29/2016 Migraine headache 07/29/2016 Assessment & Plan (12/18/2021 4:59 PM CDT): Started home Topamax Assessment & Plan (08/09/2021 6:17 PM ENVIRONMENTAL REMEDIATION SPECIALIST): Patient not complaining of headache or migraines at this time Sumatriptan on hold Hypokalemia Encounters Date Type Department Care Team Description 11/25/2024 Telephone [facility] [address] [place] [address] Julia Wyman RN 11/11/2024 Telephone [facility] [address] [facility] Advanced Medicine 12th [place] [address] [place] [address] Katharine Carty Refill request 10/18/2024 Telephone [facility] [place] [address] Julia Wyman, KIET 09/08/2024 Telephone [facility] - [facility] Minimally Invasive Surgery [address] [facility] Medicine 12th Floor, [place] [address] Socorro Ruano from Last 3 Months Immunizations Immunization Administration Dates Next Due Influenza, [...] TIA IBS (irritable bowel syndrome) Hypotension A-fib (HCC) Colon polyp Chronic nausea 09/24/2021 Nausea [...] often do you attend chur ch or rastafari services? Never 09/09/2023 Do you belong to [...] on file Legal Sex Female 10:06 AM ENVIRONMENTAL REMEDIATION SPECIALIST Gender Identity Female 06/17/2024 7:02 AM CDT Sexual Orientation Not on file Obstetrics History Para Term AB IAB SAB Ectopic Multiple Livin g Live Births 8 6 6 Date Outcome GA Total Labor Labor//3rd Weight Sex Type Anes PTL Sherrie A1 [...] 04/20/2024 2:59 PM CDT Plan of Treatment Health Maintenance Due Date Last Done Comments Cervical Cancer Screening 1970 Hepatitis C Screening 1970 Hepatitis B Screening 1986 Regular Well Visit/Exam 18-64 1986 Pneumococcal vaccine <65 (1 of 2 - PCV) 1987 Zoster Vaccine (1 of 2) 2018 Depression Screening 08/08/2022 08/08/2021 Covid-19 Vaccine (3 - 2023-2 5 season) 2024 02/20/2021, 01/23/2021 Breast Cancer Screening-Mammogram 11/10/2024 11/11/2023, 11/11/2023, 05/20/2022, Additional history exists Influenza Vaccine (Season Ended) 2025 07/14/2023, 07/01/2022, 06/18/2022, Additional history exists DTaP/Tdap/Td Vaccine (2 - [...] mammogram, encounter for COLONOSCOPY 10/29/2022 7:59 AM ENVIRONMENTAL REMEDIATION SPECIALIST from Last 3 Months or Most [...] nal Result * COLONOSCOPY (10/29/2022 7:59 AM ENVIRONMENTAL REMEDIATION SPECIALIST) Anatomical Region Laterality Modality Other Narrative Procedure Note Germania Sorto MD - 10/29/2022 7:59 AM CST [facility] Patient Name: Sarahy Gill Procedure Date: 10/29/2022 7:59 AM Date of : 1970 Admit Type: Outpatient Age: 52 Gender: Female Attending MD: Germania Sorto M.D. Room: [facility] ENDOSCOPY ROOM 1 Note Status: Finalized [...] under direct vision. The Pediatric Colonoscope PCF-H190L [id number] was introducedthrough the anus and advanced to [...] 7:59 AM Procedure Code(s): --- Professional --- 22621, Colonoscopy, flexible; with biopsy, single or multiple Diagnosis Code(s): --- Professional --- K64.8, Other hemorrhoids D12.3, Benign neoplasm of transverse colon (hepatic flexure orsplenic flexure) K52.9, Noninfective gastroenteritis and colitis, unspecified CPT copyright 2020 [employer]. All rights reserved. The codes documented in this report are preliminary and upon dispatcher automobile rental reviewmay be revised to meet current compliance requirements. Recognized by the [employer] for promoting quality in endoscopy Germania Sorto MD ENDOSCOPY PROCEDURES Final Result from Last 3 Months or Most Recently Relevant to Health Maintenance Insurance IDPA UHC MEDICARE ADVANTAGE [facility] MEDICARE ADVANTAGE [employer] Advance Directives For more information, please contact: [phone] Documents on File Type Date Recorded Patient Community Living Specialist Expl anation ADVANCE DIRECTIVE 08/14/2021 9:12 AM Raz r of Self Pay Specialist-Medical * Full Code (Latest Code Status on [...] 8:07 AM 10/29/2022 2:30 PM Care Teams Greige Goods Examiner Relationship Specialty Start Date End Date Parmjit Dai MD PCP - General 12/31/20 Mere Landa NP Nurse Practitioner 02/07/20 Tico Burton MD Surgeon General Surgery 08/09/21 Ivan Liang MD Consulting Physician General Surgery 09/09/23
--- OUTSIDE RECORDS SUMMARY | 2024-12-07 11:14 | XMS_ITS | Clinical Summary ---
Author Organization [facility] [employer] Address [address] [facility] [place] [address] Care Team Providers Care Lab Manager Name Role Phone Mandeep Pennington DO Primary Care Provider [phone] Source Comments [facility] [employer],non-owned Affiliates and Associated Physician Practices is amultiple site organization consisting of ambulatory clinics and hospital sitesin [place], [place], [place] and [place]. This disclosure is being madepursuant to the Care Everywhere program and may not contain all information available regarding this patient. Last updated 18.[facility] [employer] Allergies Active Allergy Reactions Criticality Noted Date [...] 2018 COVID-19 VACCINE (1 - season) 2024 DEPRESSION SCREENING 08/31/2024 MEDICARE AWV CALENDAR YEAR 2024 INFLUENZA VACCINE (Season Ended) 2025 07/14/2023, 07/01/2022, 06/18/2022, Additional history exists MAMMOGRAM 11/10/2025 11/11/2023, 10/29, 05/20/2022 COLONOSCOPY - COLON CA SCREENING 10/29/2032 10/29/2022 Colorectal Cancer Screening 10/29/2032 HEPATITIS C SCREENING Completed 06/06/2024 HIB VACCINE Aged Out No longer eligi ble based on patient's age to complete this topic HPV VACCINE Aged Out No longer eligi ble based on patient's age to complete this topic MENINGOCOCCAL (Group B) VACCINE SHARED DECISION-MAKING Aged Out No longer eligible based on patient's age to complete this topic MENINGOCOCCAL GROUPS A/C/Y/W VACCINE Aged Out No longer eligible based [...] - 06/07/2024 7:12 AM CDT Performed at: [address] [place] [id number] Transplant Case Manager: Edmundo Dias PhD, Phone: [phone] Rolando Castro DO LAB - CHEMISTRY ROQUE WALDRON [facility] INSURANCE BILL [address] [place] [address] from Last 3 Months or Most Recently Relevant to Health Maintenance Care Teams Lab Manager Relationship Specialty Start Date End Date Mandeep Pennington DO [address] [place] [address] PCP - General Internal Medicine 06/30/24
[2024-12-07 11:38] LABS: Add Urine Microscopic? YES; Appearance Urine Clear (Clear); Bacteria Urine None Seen /hpf; Bilirubin Urine Negative (Negative); Blood Urine Trace (Negative); Color Urine Yellow (Yellow); Glucose Urine UA Negative (Negative); Ketones Urine Negative (Negative); Leukocyte Esterase Ur 3+ LEU/UL (Negative); Need Manual Microscopic Reviewed; Nitrate Urine Negative (Negative); Protein Urine Negative (Negative); RBC Urine 0-2 /hpf (0-2); Specific Grav Ur 1.003 (1.001-1.035); Squamous Epithelial Cell Urine None Seen /hpf (Few); Urobilinogen Urine 0.2 mg/dL (<2.0); WBC Urine 51-100 /hpf (0-3); pH Urine 7.5 (5.0-9.0)
== END 2024-12-07 10:00 | disposition home or self-care (01) ==
LOC: ANHGOSHLAB 10:00
PROVIDERS: PCP Internal Medicine; Visit Provider Nurse Practitioner
DX: R30.0 Dysuria (principal)
CPT/HCPCS: 81001; 87077; 87086; 87186

== ENCOUNTER 2025-01-13 01:40 | Emergency (ER) | payer OTHER, MEDICARE, SELFPAY ==
--- NOTE | ~2025-01-13 | CT_ITS ---
CT of the Abdomen and Pelvis: Indication: Abdominal pain Technique: 2.5 mm axial scans were obtained through the abdomen and pelvis following intravenous adm inistration of 100 cc of Omnipaque 350. Dose reduction technique was used on this scan by utilizing a utomated exposure control and iterative reconstruction technique. The dose-length product (DLP) was 4 22.52 mGy-cm. Findings: Scans through the lung bases are unremarkable. Focal coarse calcification noted in the upper liver, of doubtful clinical significance. Cholecystecto my clips are present. The spleen, pancreas, adrenals and kidneys are within normal limits. No eviden ce of aortic aneurysm. No lymphadenopathy. No bowel obstruction or bowel wall thickening. There is no evidence to suggest acute appendicitis. Images through the pelvis were performed. Urinary bladder unremarkable. No pelvic mass seen. No ascit es. Impression: No acute abnormality. Reviewed, dictated and finalized at [facility]. Impression: No acute abnormality.
--- OUTSIDE RECORDS SUMMARY | 2025-01-13 04:38 | XMS_ITS | Encounter Summary ---
Author Organization [facility] Healthcare Address [address] [place] [address] Care Team Providers Care Fixture Relamper Name Role Phone Mere Landa NP Unavailable [phone] Parmjit Dai MD Primary Care Provider [phone] Tico Burton MD Unavailable [phone] Ivan Liang MD Unavailable Reason for Visit * Reason Onset Date Comments Scheduling Appointments 06/19/2021 confirmi ng mammogram appt Encounter Details Date Type Department Care Team (Late st Contact Info) Description 06/19/2021 Telephone [facility] [address] [place] [address] Cheryl Trejo RT Scheduling Appointments (confirming mammogram [...] on file Legal Sex Female 10:06 AM ANTISQUEAK CHALKER Gender Identity Female 06/17/2024 7:02 AM CDT Sexual Orientation Not on file documented as of this encounter Plan of Treatment Scheduled Procedures Name Priority Associated Diagnoses Date/Ti me ESOPHAGOGASTRODUODENOSCOPY Open Access Gastroesophageal reflux disease, unspecified whether esophagitis present ESOPHAGOGASTRODUODENOSCOPY Open Access Dysphagia, unspecified type documented as of this encounter Visit Diagnoses Not on filedocumented in this encounter Additional Health Concerns Infection Onset Date Last Indicated Resolved Time COVID: Suspected 06/09/2022 06/09/2022 06/09/2022 11:28 PM CDT COVID: Suspected 07/06/2022 07/06/2022 07/06/2022 3:52 AM ANTISQUEAK CHALKER COVID: Suspected 08/18/2022 08/18/2022 08/18/2022 12:59 AM ANTISQUEAK CHALKER COVID: Suspected 09/19/2023 09/19/2023 09/19/2023 11:01 AM ANTISQUEAK CHALKER C. difficile suspected 07/21/2024 07/21/202407/22 3:05 AM ANTISQUEAK CHALKER documented as of this encounter Care Teams Fixture Relamper Relationship Specialty Start Date End Date Parmjit Dai MD PCP - General 12/31/20 Mere Landa NP Nurse Practitioner 02/07/20 Tico Burton MD Surgeon General Surgery 08/09/21 Ivan Liang MD Consulting Physician General Surgery 09/09/23 documented as of this encounter
--- OUTSIDE RECORDS SUMMARY | 2025-01-13 04:38 | XMS_ITS | Clinical Summary ---
Author Organization [facility] [employer] Address [address] [facility] [place] [address] Care Team Providers Care Loan Secretary Name Role Phone Mandeep Pennington DO Primary Care Provider [phone] Source Comments [facility] [employer],non-owned Affiliates and Associated Physician Practices is amultiple site organization consisting of ambulatory clinics and hospital sitesin [place], [place], [place] and [place]. This disclosure is being madepursuant to the Care Everywhere program and may not contain all information available regarding this patient. Last updated 18.[facility] [employer] Allergies Active Allergy Reactions Criticality Noted Date [...] document. Alwaysverify current medications with the patient. Acetaminophen Extra Strength 500 MG TABS Take [...] to this non-inflammatory hypersensitivity pain disorder. Sarahy Elise Gill was provided additional written information regarding [...] drink = 0.6 oz pur e alcohol) Comments No Sex and Gender Information Value Date Recorded Sex Assigned at Not on file Legal Sex Female 11:26 AM CDT Gender Identity Not on file Sexual [...] - 06/07/2024 7:12 AM CDT Performed at: [address] [place] [id number] Youth Agent: Edmundo Dias PhD, Phone: [phone] Rolando Castro DO LAB - CHEMISTRY ORDERABLES Final Result Performing Organization Address City/State/[facility] [[email or web address]] Co de Phone Number [facility] INSURANCE BILL [address] [place] [address] from Last 3 Months or Most Recently Relevant to Health Maintenance Insurance [employer] [facility] MANAGED MEDICARE ADV Care Teams Loan Secretary Relationship Specialty Start Date End Date Mandeep Pennington DO [address] [place] [phone] PCP - General Internal Medicine 06/30/24
--- OUTSIDE RECORDS SUMMARY | 2025-01-13 04:38 | XMS_ITS | Clinical Summary ---
Author Organization [facility] Address [address] [place] [address] Phone Care Team Providers Care Insulation Inspector Name Role Phone Parmjit Dai MD Primary Care Provider [phone] Jazmine Kulkarni MD Unavailable [phone] Mir Spencer MD Unavailable Allergies Active Allergy [...] Comments Blood Pressure 96/66 10/29/2023 8:05 AM PEST CONTROL OPERATOR Pulse 52 10/29/2023 8:05 AM PEST CONTROL OPERATOR Temperature 36.9 C (98.4 F) 10/16/2023 8:53 AM PEST CONTROL OPERATOR Respiratory Rate 20 10/29/2023 8:05 AM PEST CONTROL OPERATOR Oxygen Saturation 100% 10/16/2023 8:53 AM PEST CONTROL OPERATOR Inhaled Oxygen Concentration - - Weight 56.7 kg (125 lb) 10/29/2023 8:05 AM PEST CONTROL OPERATOR Height 162.6 cm (5' 4 ) 10/29/2023 8:05 AM PEST CONTROL OPERATOR Body Mass Index 21.46 10/29/2023 8:05 AM PEST CONTROL OPERATOR Plan of Treatment Health Maintenance Due [...] this topic Insurance MEDICAID [place] MEDICARE [facility] Care Teams Insulation Inspector Relationship Specialty Start Date End Date Parmjit Dai MD [address] [place] [address] [address] [place] [address] PCP - General Family Medicine 05/21/22 Jazmine Kulkarni MD [address] [place] [address] [address] [place] [address] Family Medicine 05/21/22 Mir Spencer MD [address] [place] [address] Consulting Physician Urology 10/29/23
--- OUTSIDE RECORDS SUMMARY | 2025-01-13 04:38 | XMS_ITS | Encounter Summary ---
Author Organization [facility] Address [address] [place] [address] Phone Care Team Providers Care Catering Sous Chef Name Role Phone Mere Landa NP Unavailable [phone] Parmjit Dai MD Primary Care Provider [phone] Tico Burton MD Unavailable [phone] Ivan Liang MD Unavailable Reason for Visit * Reason Onset Date Comments Scheduling Testing/Treatment 01/12/2025 Encounter Details Date Type Department Care Team (Late st Contact Info) Description 01/12/2025 Telephone [facility] Gastroenterology [address] [place] [address] Medical Office [address], [address] [place] [address] Abena Lam RN Scheduling Testing/Treatment Social History Tobacco Use Types Packs/Day Years Used Date Smoking Tobacco: Former Cigarettes 1 984 - 1999 Vaping Smokeless Tobacco: Never Comments:off and on Alcohol Use Standard Drinks/Week Comments No 0 (1 standard drink = 0.6 oz pur e alcohol) on occasion [facility] Utilities Answer Date Recorded In [...] on file Legal Sex Female 10:06 AM HOTEL OR MOTEL ROOM SERVICE SUPERVISOR Gender Identity Female 06/17/2024 7:02 AM CDT Sexual Orientation Not on file documented as of this encounter Miscellaneous Notes * Telephone Encounter - Abena Lam RN - 01/12/2025 2:59 PM CDT Attempted to reach the patient to discuss scheduling per below. No Answer, left message. Team updated. ----- Message from Nurse Maty Mcduffie sent at 01/12/2025 2:29 PM CDT ----- Regarding: RE: EGD/Endolip/YI I can only do 02/17. Let's do the EGD Endoflip at 1300. But, I'll need her to arrive by 1100 for pre YI teaching. That is earlier than we usually ask them to come, but I can only do her teaching at that time because of our schedule. And we can't do the EGD/YI earlier than 1300. If that date doesn't work for her, it will have to be February. Let me know if she takes it and I will mira with her YI instructions. Anna ----- Message ----- From: Abena Lam RN Sent: 01/12/2025 1:03 PM CDT To: Monique Mora RN; Magda Brooks RN; # Subject: RE: EGD/Endolip/YI AR has openings on 02/17, 02/21 and 02/24 ----- Message ----- From: Maty Hammond RN Sent: 01/12/2025 12:18 PM CDT To: Abena Lam RN; Monique oMra, KIET; # Subject: EGD/Endolip/YI Abena/Monique, This patient should be coming across one of your radars. Orders were placed today by Dr Davila's office for an EGD/Endoflip to be done at [facility] as well as a YI pH capsule that will be placed during the same procedure. We will need to coordinate a day for that. Maura (Dr. Davila's MA) said this is not urgent. I told her it would likely be in February. Depending on Marv/Germania's schedules we might be able to come up with a date for YI with you at the end of January (but not likely). Call [employer] when you get the order and we'll see what we can do. Thanks, Anna documented in this encounter Plan of Treatment Scheduled Procedures Name Priority Associated Diagnoses Date/Ti me ESOPHAGOGASTRODUODENOSCOPY Open Access Gastroesophageal reflux disease, unspecified whether esophagitis present ESOPHAGOGASTRODUODENOSCOPY Open Access Dysphagia, unspecified type documented as of this encounter Visit Diagnoses Not on filedocumented in this encounter Care Teams Catering Sous Chef Relationship Specialty Start Date End Date Parmjit Dai MD PCP - General 12/31/20 Mere Landa NP Nurse Practitioner 02/07/20 Tico Burton MD Surgeon General Surgery 08/09/21 Ivan Liang MD Consulting Physician General Surgery 09/09/23 documented as of this encounter
--- OUTSIDE RECORDS SUMMARY | 2025-01-13 04:38 | XMS_ITS | Clinical Summary ---
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 Continue bowel regimen if needed to avoid straining. No submerging incision for 1 more week. Light duty for another 2 weeks. Patient will call us back with any further questions or concerns. Assessment & Plan (09/03/2023 8:54 AM KINDERGARTEN PARAPROFESSIONAL): I will discuss her case with GI. [...] (09/10/2022): Added automatically from request for surgery [id number] Cyclical vomiting 09/05/2022 Gastritis 09/05/2022 Gastroesophageal reflux [...] 08/13/2021 Assessment & Plan (08/13/2021 9:33 AM KINDERGARTEN PARAPROFESSIONAL): Pt complains of pain with urination. Pt also complains of suprapubic pain. Plan - Urine analysis TIA (transient ischemic attack) 08/11/2021 Assessment & Plan (08/13/2021 9:29 AM KINDERGARTEN PARAPROFESSIONAL): Sarahy Gill 51-year-old female presenting with left [...] mg Assessment & Plan (08/12/2021 6:00 PM KINDERGARTEN PARAPROFESSIONAL): Sarahy Gill 51-year-old female presenting with left [...] recommendations Assessment & Plan (08/09/2021 6:14 PM KINDERGARTEN PARAPROFESSIONAL): Patient has a history of IBS with [...] agitation/anxiety Assessment & Plan (08/13/2021 9:30 AM KINDERGARTEN PARAPROFESSIONAL): Currently mood at baseline. Continue home med Celexa Assessment & Plan (08/12/2021 5:53 PM KINDERGARTEN PARAPROFESSIONAL): Currently mood at baseline. Continue home med Celexa Assessment & Plan (08/09/2021 6:30 PM KINDERGARTEN PARAPROFESSIONAL): Per patient has a history of bipolar depressive type Stable at this time Not currently on any medication Patient denies any suicidal homicidal ideation Intussusception intestine 08/09/2021 Assessment & Plan (08/09/2021 6:36 PM KINDERGARTEN PARAPROFESSIONAL): 08/08/2021 CT abdomen/pelvis with contrast: Possible cystitis, [...] q.day Assessment & Plan (08/13/2021 9:29 AM KINDERGARTEN PARAPROFESSIONAL): Blood pressure has been under control Metoprolol restarted Assessment & Plan (08/12/2021 5:49 PM KINDERGARTEN PARAPROFESSIONAL): Blood pressure has been under control Metoprolol has been on hold-to allow for permissive hypertension for the next 24 hours, will restart tomorrow Assessment & Plan (08/09/2021 6:31 PM KINDERGARTEN PARAPROFESSIONAL): Have reviewed 24 hour blood pressures and [...] consult: Assessment & Plan (08/09/2021 6:12 PM KINDERGARTEN PARAPROFESSIONAL): CT abdomen pelvis with contrast at [place] yesterday showed intussusception CT abdomen pelvis with contrast at [facility]: Showed resolution of intussusception Patient has [...] monitor Assessment & Plan (08/13/2021 9:29 AM KINDERGARTEN PARAPROFESSIONAL): Currently in sinus rhythm. Eliquis on hold will resume on August 15. Continue with flecainide Metoprolol restarted Assessment & Plan (08/12/2021 5:54 PM KINDERGARTEN PARAPROFESSIONAL): Currently in sinus rhythm. Eliquis on hold will resume on August 15. Continue with flecainide Metoprolol on hold will resume tomorrow Assessment & Plan (08/09/2021 6:18 PM KINDERGARTEN PARAPROFESSIONAL): No acute events since admission Patient on Eliquis Metoprolol for rate control with hold parameters Will continue to monitor Essential tremor 10/12/2018 Assessment & Plan (08/13/2021 9:30 AM KINDERGARTEN PARAPROFESSIONAL): B/l hand with tremor - no changes in strength Assessment & Plan (08/09/2021 6:30 PM KINDERGARTEN PARAPROFESSIONAL): Patient reports after waking up had increase [...] consult Assessment & Plan (08/13/2021 9:30 AM KINDERGARTEN PARAPROFESSIONAL): Currently in no acute exacerbation. -continue Bentyl Assessment & Plan (08/12/2021 5:47 PM KINDERGARTEN PARAPROFESSIONAL): Currently in no acute exacerbation. -continue Bentyl Assessment & Plan (08/09/2021 6:15 PM KINDERGARTEN PARAPROFESSIONAL): Patient on Bentyl Monitoring electrolytes Assessment & [...] ibs-d. Will get all the records from [place] and then regroup to discuss possible treatment options. Orthostatic dizziness 09/16/2016 Palpitations 07/29/2016 Migraine headache 07/29/2016 Assessment & Plan (12/18/2021 4:59 PM CDT): Started home Topamax Assessment & Plan (08/09/2021 6:17 PM KINDERGARTEN PARAPROFESSIONAL): Patient not complaining of headache or migraines at this time Sumatriptan on hold Hypokalemia Encounters Date Type Department Care Team Description 01/12/2025 Telephone [facility] Gastroenterology [facility] Medical Office Building [address], [address] [place] [phone] Abena Lam, KIET Scheduling Testing/Treatment 01/12/2025 Orders Only [facility]) [facility] Minimally Invasive Surgery [address] [place] [address] 12th Floor, [place] [phone] Say Davila MD PhD Gastroesophageal reflux disease, unspecified whether esophagitis present (Primary Dx) 01/09/2025 Telephone [facility] Gastroenterology [address] [place] [address] 12th [place] [address] [place] [address] Marah Byrnes RMA PRE PROCEDURE ASSESSMENT 01/09/2025 Orders Only [facility] Gastroenterology [address] [place] [address] 12th [place] [address] [place] [phone] Forest Catherine MD Esophageal dysphagia (Primary Dx); Gastroesophageal reflux disease with esophagitis without hemorrhage 01/06/2025 Orders Only [facility]) [facility] Minimally Invasive Surgery [address] [place] [address] 12th Floor, [place] [address] Say Davila MD PhD Dysphagia, unspecified type (Primary Dx) 01/03/2025 Orders Only [facility]) [facility] Minimally Invasive Surgery [address] [place] [address] 12th Floor, [place] [phone] Say Davila MD PhD Gastroesophageal reflux disease, unspecified whether esophagitis present (Primary Dx) 11/25/2024 Telephone [facility] Center [address] [place] [address] Julia Wyman, KIET 11/11/2024 Telephone [facility] Gastroenterology [facility] 12th [place] [address] [place] [address] Katharine Carty Refill request 10/18/2024 Telephone [facility] [address] [place] [address] Julia Wyman, KIET from Last 3 Months Immunizations Immunization Administration [...] oz pur e alcohol) on occasion [facility] Utilities Answer Date Recorded In the past 12 months has e [employer], gas, oil, or water company threatened to [...] often do you attend chur ch or hoahaoism services? Never 09/09/2023 Do you belong to [...] on file Legal Sex Female 10:06 AM KINDERGARTEN PARAPROFESSIONAL Gender Identity Female 06/17/2024 7:02 AM CDT [...] 04/20/2024 2:59 PM CDT Plan of Treatment Scheduled Procedures Name Priority Associated Diagnoses Date/Ti me ESOPHAGOGASTRODUODENOSCOPY Open Access Gastroesophageal reflux disease, unspecified whether esophagitis present ESOPHAGOGASTRODUODENOSCOPY Open Access Dysphagia, unspecified type Health Maintenance Due Date Last Done Comments [...] mammogram, encounter for COLONOSCOPY 10/29/2022 7:59 AM KINDERGARTEN PARAPROFESSIONAL from Last 3 Months or Most Recently [...] nal Result * COLONOSCOPY (10/29/2022 7:59 AM KINDERGARTEN PARAPROFESSIONAL) Anatomical Region Laterality Modality Other Narrative Procedure Note Germania Sorto MD - 10/29/2022 7:59 AM CST [facility] Patient Name: Sarahy Gill Procedure Date: 10/29/2022 7:59 AM Date of : 1970 Admit Type: Outpatient Age: 52 Gender: Female Attending MD: Germania Sorto M.D. Room: [facility] ENDOSCOPY ROOM 1 Note Status: Finalized Patient [...] under direct vision. The Pediatric Colonoscope PCF-H190L [id number] was introducedthrough the anus and advanced to [...] 7:59 AM Procedure Code(s): --- Professional --- 29998, Colonoscopy, flexible; with biopsy, single or multiple Diagnosis Code(s): --- Professional --- K64.8, Other hemorrhoids D12.3, Benign neoplasm of transverse colon (hepatic flexure orsplenic flexure) K52.9, Noninfective gastroenteritis and colitis, unspecified CPT copyright 2020 [employer]. All rights reserved. The codes documented in this report are preliminary and upon division traffic superintendent reviewmay be revised to meet current compliance requirements. Recognized by the [employer] for promoting quality in endoscopy Germania Sorto MD ENDOSCOPY PROCEDURES Final Result from Last 3 Months or Most Recently Relevant to Health Maintenance Insurance [facility] MEDICARE ADVANTAGE JOANAJOHN OLMSTEADAL[place] [id number] MEDICARE ADVANTAGE JOANAJOHN OLMSTEADALEX Advance Directives For more information, please contact: [phone] Documents on File Type Date Recorded Patient Claims Examiner Expl anation ADVANCE DIRECTIVE 08/14/2021 9:12 AM Raz r of Thermal Cutter Helper-Medical * Full Code (Latest Code Status on [...] 8:07 AM 10/29/2022 2:30 PM Care Teams Stewarding Supervisor Relationship Specialty Start Date End Date Parmjit Dai MD PCP - General 12/31/20 Mere Landa NP Nurse Practitioner 02/07/20 Tico Burton MD Surgeon General Surgery 08/09/21 Ivan Liang MD Consulting Physician General Surgery 09/09/23
--- OUTSIDE RECORDS SUMMARY | 2025-01-13 04:38 | XMS_ITS | Referral Summary ---
Author Organization [facility] HealthCare Care Team Providers Care Product Handler Name Role Phone Mere Landa NP Unavailable [phone] Parmjit Dai MD Primary Care Provider [phone] Tico Burton MD Unavailable [phone] Ivan Liang MD Unavailable Encounters Date Type Department Care Team Description 01/12/2025 Telephone [facility] Gastroenterology [address] [place] [address] Medical Office Building [address], [address] [place] [address] Abena Lam, KIET Scheduling Testing/Treatment 01/12/2025 Orders Only [facility] - [facility] Minimally Invasive Surgery [address] [place] [address] 12th Floor, [place] [address] Say Davila MD PhD Gastroesophageal reflux disease, unspecified whether esophagitis present (Primary Dx) 01/09/2025 Telephone [facility] Gastroenterology [address] [place] [address] [address] [place] [address] Marah Byrnes RMA PRE PROCEDURE ASSESSMENT 01/09/2025 Orders Only [facility] Gastroenterology [address] [place] [address] [address] [place] [address] [place] [address] Forest Catherine MD Esophageal dysphagia (Primary Dx); Gastroesophageal reflux disease with esophagitis without hemorrhage 01/06/2025 Orders Only [facility]) - [facility] Minimally Invasive Surgery [address] [facility] [address], [place] [address] Say Davila MD PhD Dysphagia, unspecified type (Primary Dx) 01/03/2025 Orders Only [facility]) - [facility] Minimally Invasive Surgery [address] [facility] [address], [place] [address] Say Davila MD PhD Gastroesophageal reflux disease, unspecified whether esophagitis present (Primary Dx) 11/25/2024 Telephone [facility] GI Center [facility] [place] [address] Julia Wyman, KIET 11/11/2024 Telephone [facility] Gastroenterology [facility] [address]th [place] [address] [place] [address] Katharine Carty Refill request 10/18/2024 Telephone [facility] GI Center [facility] [place] [address] Julia Wyman, KIET from Last 3 Months Allergies Active Allergy [...] a day 60 tablet 1 5 02/10/20 Active Active Problems Problem Noted Date Diagnosed Date Dysphagia 01/06/2025 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 Continue bowel regimen if needed to avoid straining. No submerging incision for 1 more week. Light duty for another 2 weeks. Patient will call us back with any further questions or concerns. Assessment & Plan (09/03/2023 8:54 AM MARKER HAND): I will discuss her case with GI. [...] (09/10/2022): Added automatically from request for surgery [id number] Cyclical vomiting 09/05/2022 Gastritis 09/05/2022 Gastroesophageal reflux [...] 08/13/2021 Assessment & Plan (08/13/2021 9:33 AM MARKER HAND): Pt complains of pain with urination. Pt also complains of suprapubic pain. Plan - Urine analysis TIA (transient ischemic attack) 08/11/2021 Assessment & Plan (08/13/2021 9:29 AM MARKER HAND): Sarahy Gill 51-year-old female presenting with left [...] mg Assessment & Plan (08/12/2021 6:00 PM MARKER HAND): Sarahy Gill 51-year-old female presenting with left [...] recommendations Assessment & Plan (08/09/2021 6:14 PM MARKER HAND): Patient has a history of IBS with [...] agitation/anxiety Assessment & Plan (08/13/2021 9:30 AM MARKER HAND): Currently mood at baseline. Continue home med Celexa Assessment & Plan (08/12/2021 5:53 PM MARKER HAND): Currently mood at baseline. Continue home med Celexa Assessment & Plan (08/09/2021 6:30 PM MARKER HAND): Per patient has a history of bipolar depressive type Stable at this time Not currently on any medication Patient denies any suicidal homicidal ideation Intussusception intestine 08/09/2021 Assessment & Plan (08/09/2021 6:36 PM MARKER HAND): 08/08/2021 CT abdomen/pelvis with contrast: Possible cystitis, [...] q.day Assessment & Plan (08/13/2021 9:29 AM MARKER HAND): Blood pressure has been under control Metoprolol restarted Assessment & Plan (08/12/2021 5:49 PM MARKER HAND): Blood pressure has been under control Metoprolol has been on hold-to allow for permissive hypertension for the next 24 hours, will restart tomorrow Assessment & Plan (08/09/2021 6:31 PM MARKER HAND): Have reviewed 24 hour blood pressures and [...] consult: Assessment & Plan (08/09/2021 6:12 PM MARKER HAND): CT abdomen pelvis with contrast at [place] yesterday showed intussusception CT abdomen pelvis with contrast at [facility]: Showed resolution of intussusception Patient has [...] monitor Assessment & Plan (08/13/2021 9:29 AM MARKER HAND): Currently in sinus rhythm. Eliquis on hold will resume on August 15. Continue with flecainide Metoprolol restarted Assessment & Plan (08/12/2021 5:54 PM MARKER HAND): Currently in sinus rhythm. Eliquis on hold will resume on August 15. Continue with flecainide Metoprolol on hold will resume tomorrow Assessment & Plan (08/09/2021 6:18 PM MARKER HAND): No acute events since admission Patient on Eliquis Metoprolol for rate control with hold parameters Will continue to monitor Essential tremor 10/12/2018 Assessment & Plan (08/13/2021 9:30 AM MARKER HAND): B/l hand with tremor - no changes in strength Assessment & Plan (08/09/2021 6:30 PM MARKER HAND): Patient reports after waking up had increase [...] consult Assessment & Plan (08/13/2021 9:30 AM MARKER HAND): Currently in no acute exacerbation. -continue Bentyl Assessment & Plan (08/12/2021 5:47 PM MARKER HAND): Currently in no acute exacerbation. -continue Bentyl Assessment & Plan (08/09/2021 6:15 PM MARKER HAND): Patient on Bentyl Monitoring electrolytes Assessment & [...] ibs-d. Will get all the records from [place] and then regroup to discuss possible treatment options. Orthostatic dizziness 09/16/2016 Palpitations 07/29/2016 Migraine headache 07/29/2016 Assessment & Plan (12/18/2021 4:59 PM CDT): Started home Topamax Assessment & Plan (08/09/2021 6:17 PM MARKER HAND): Patient not complaining of headache or migraines at this time Sumatriptan on hold Hypokalemia Immunizations Immunization Administration Dates Next Due Influenza, Unspecified 07/01/2022,05/01/2021 Social History Tobacco Use Types Packs/Day Years Used Date Smoking Tobacco: Former Cigarettes - 1999 Vaping Smokeless Tobacco: Never Tobacco Cessation:Counseling Given: Not Answered Comments:off and on Alcohol Use Standard Drinks/Week Comments No 0 (1 standard drink = 0.6 oz pur e alcohol) on occasion en[employer] Utilities Answer Date Recorded In the past 12 months has [employer], gas, oil, or water [employer] threatened to shut off services in your [...] week 09/09/2023 How often do you attend [facility] or confucianism services? Never 09/09/2023 Do you belong to any clubs o r organizations such as caodaism groups, unions, fraternal or athletic groups, or [...] on file Legal Sex Female 10:06 AM MARKER HAND Gender Identity Female 06/17/2024 7:02 AM CDT [...] present ESOPHAGOGASTRODUODENOSCOPY Open Access Dysphagia, unspecified type Procedures Procedure Name Priority Date/Time Associated Diagnosis Comments SCREENING MAMMOGRAM BILATERAL W BONG Schedule Routine, Read Routine (OP Routine) 11/11/2023 8:54 AM CDT Screening mammogram, encounter for COLONOSCOPY 10/29/2022 7:59 AM MARKER HAND from Last 3 Months or Most Recently [...] nal Result * COLONOSCOPY (10/29/2022 7:59 AM MARKER HAND) Anatomical Region Laterality Modality Other Narrative Procedure Note Germania Sorto MD - 10/29/2022 7:59 AM CST [facility] Center Patient Name: Sarahy Gill Procedure Date: 10/29/2022 7:59 AM Date of : 1970 Admit Type: Outpatient Age: 52 Gender: Female Attending MD: Germania Sorto M.D. Room: [facility] ENDOSCOPY ROOM 1 Note Status: Finalized Patient [...] under direct vision. The Pediatric Colonoscope PCF-H190L [id number] was introducedthrough the anus and advanced to [...] 7:59 AM Procedure Code(s): --- Professional --- 89298, Colonoscopy, flexible; with biopsy, single or multiple Diagnosis Code(s): --- Professional --- K64.8, Other hemorrhoids D12.3, Benign neoplasm of transverse colon (hepatic flexure orsplenic flexure) K52.9, Noninfective gastroenteritis and colitis, unspecified CPT copyright 2020 [employer]. All rights reserved. The codes documented in this report are preliminary and upon engineering supervisor reviewmay be revised to meet current compliance requirements. Recognized by the [place] for promoting quality in endoscopy Germania Sorto MD ENDOSCOPY PROCEDURES Final Result from Last 3 Months or Most Recently Relevant to Health Maintenance Insurance [facility] MEDICARE ADVANTAGE [facility] MEDICARE ADVANTAGE [place] SPEARS Advance Directives For more information, please contact: [phone] Documents on File Type Date Recorded Patient Laundry Washer Expl anation ADVANCE DIRECTIVE 08/14/2021 9:12 AM Raz r of Ed Transporter-Medical * Full Code (Latest Code Status on [...] 8:07 AM 10/29/2022 2:30 PM Care Teams Product Handler Relationship Specialty Start Date End Date Parmjit Dai MD PCP - General 12/31/20 Mere Landa NP Nurse Practitioner 02/07/20 Tico Burton MD Surgeon General Surgery 08/09/21 Ivan Liang MD Consulting Physician General Surgery 09/09/23
--- OUTSIDE RECORDS SUMMARY | 2025-01-13 04:38 | XMS_ITS | Encounter Summary ---
Author Organization [facility] Address [address] [place] [address] Phone Care Team Providers Care Rn Intern Name Role Phone Mere Landa NP Unavailable [phone] Parmjit Dai MD Primary Care Provider [phone] Tico Burton MD Unavailable [phone] Ivan Liang MD Unavailable Encounter Details Date Type Department Care Team (Late st Contact Info) Description 01/12/[address] [facility] - [facility] Minimally Invasive Surgery [address] [facility] Advanced Medicine 12th Floor, [place] [address] Say Davila MD PhD [address] [place] [address] Gastroesophageal reflux disease, unspecified whether esophagitis present [...] th e electric, gas, oil, or water [employer] threatened to shut off services in your [...] often do you attend chur ch or shinto services? Never 09/09/2023 Do you belong to any clubs o r organizations such as alevism groups, unions, fraternal or athletic groups, or [...] place to sleep or slept in a long term (including now)? No 09/09/2023 Personal Safety Answer Date Recorded Have you ever been in or are you currently in a harmful physical or emotional relationship or is someone making you feel afraid or unsafe? Denies 02/08/2024 Comments No Sex and Gender Information Value Date Recorded Sex Assigned at Not on file Legal Sex Female 10:06 AM TAG AND LABEL CUTTER Gender Identity Female 06/17/2024 7:02 AM CDT Sexual Orientation Not on file documented as of this encounter Plan of Treatment Scheduled Procedures Name Priority Associated Diagnoses Date/Ti me ESOPHAGOGASTRODUODENOSCOPY Open Access Gastroesophageal reflux disease, unspecified whether esophagitis present ESOPHAGOGASTRODUODENOSCOPY Open Access Dysphagia, unspecified type documented as of this encounter Visit Diagnoses Diagnosis Gastroesophageal reflux disease, unspecified whether esophagitis present- Primary documented in this encounter Orders Case Request Count Last Ordered Date First Orde red Date GI DIRECT ACCESS CASE REQUEST 1 01/12/2025 documented in this encounter Care Teams Rn Intern Relationship Specialty Start Date End Date Parmjit Dai MD PCP - General 12/31/20 Mere Landa NP Nurse Practitioner 02/07/20 Tico Burton MD Surgeon General Surgery 08/09/21 Ivan Liang MD Consulting Physician General Surgery 09/09/23 documented as of this encounter
[2025-01-13 04:47] LABS: Hematocrit 37.9 % (37.0-47.0); Hemoglobin 11.9 g/dL (12.0-15.0); Mean Corpuscular HGB Conc 31.4 g/dl (32-36); Mean Corpuscular Hemoglobin 30.1 pg (26-34); Mean Corpuscular Volume 95.7 fl (80-100); Mean Platelet Volume 10.4 fl (7.4-10.4); Platelet Count Result 345 k/mm3 (150-375); Red Blood Count 3.96 M/mm3 (4.2-5.4); Red Cell Distribution Width 13.6 % (11.5-14.5); White Blood Count 10.2 K/mm3 (4.5-10.0)
[2025-01-13 04:48] LABS: Add Urine Microscopic? YES; Appearance Urine Clear (Clear); Bacteria Urine None Seen /hpf; Bilirubin Urine Negative (Negative); Blood Urine Negative (Negative); Color Urine Yellow (Yellow); Glucose Urine UA Negative (Negative); Ketones Urine Negative (Negative); Lactic Acid Reflex 1.9 mmol/L (0.7-2.0); Leukocyte Esterase Ur 2+ LEU/UL (Negative); Need Manual Microscopic Reviewed; Nitrate Urine Negative (Negative); Non Pathogenic Casts 0-2; Protein Urine Negative (Negative); RBC Urine 0-2 /hpf (0-2); Specific Grav Ur 1.009 (1.001-1.035); Squamous Epithelial Cell Urine None Seen /hpf (Few); WBC Urine 0-5 /hpf (0-3); pH Urine 8.5 (5.0-9.0)
[2025-01-13 04:49] LABS: Alanine Aminotransferase 27 U/L (6-35); Alkaline Phosphatase 98 U/L (38-126); Anion Gap 12 mmol/L (4-12); Aspartate Amino Transferase 39 U/L (14-36); Bilirubin,Total 0.3 mg/dL (0.2-1.3); Blood Urea Nitrogen 11 mg/dL (7-17); Calcium 9.6 mg/dL (8.4-10.2); Carbon Dioxide 26 mmol/L (22-30); Chloride 105 mmol/L (98-107); Estimated Glomerular Filt Rate > 60; Glucose 124 mg/dL (65-110); Lipase 210 U/L (23-300); Potassium 3.6 mmol/L (3.4-5.0); Sodium 143 mmol/L (137-145); Troponin I < 0.012 ng/mL (0.000-0.034)
--- NOTE | 2025-01-13 06:59 | P.PNED_ITS ---
Subjective Date/time seen: 01/13/25 06:59 Interval history: Patient care issued during EMR down time. Please see scanned in paper charting for additional collateral information as well as the additional signed encounter note done for the same visit under a different account number. Objective Data Meds/Results Radiology Results: ITS Impressions Abdomen/Pelvis CT 01/13/25 05:24 Impression: No acute abnormality. Labs Labs: Laboratory Results - last 24 hr 01/13/25 02:25 WBC 10.2 H RBC 3.96 L Hgb 11.9 L Hct 37.9 MCV 95.7 MCH 30.1 MCHC 31.4 L RDW 13.6 Plt Count 345 MPV 10.4 Sodium 143 Potassium 3.6 Chloride 105 Carbon Dioxide 26 Anion Gap 12 BUN 11 Creatinine 0.76 Estim Creat Clear Calc Not Reportable Estimated GFR > 60 Glucose 124 H Lactic Acid 1.9 Calcium 9.6 Total Bilirubin 0.3 AST 39 H ALT 27 Alkaline Phosphatase 98 Troponin I < 0.012 Total Protein 8.0 Albumin 5.0 Lipase 210 Urine Color Yellow Urine Appearance Clear Urine pH 8.5 Ur Specific [place] 1.009 Urine Protein Negative Urine Glucose (UA) Negative Urine Ketones Negative Ur Blood (Man) Negative Urine Nitrate Negative Urine Bilirubin Negative Urine Urobilinogen 1.0 Add Ur Microanalysis Reviewed Leukocyte Esterase Rfl 2+ H Urine RBC 0-2 Urine WBC 0-5 Ur Squamous Epith Cells None seen Urine Bacteria None seen Urine Casts 0-2
[2025-01-13 08:37] LABS: Estimated Glomerular Filt Rate > 60
== END 2025-01-13 05:20 | disposition home or self-care (01) ==
PROVIDERS: Emergency Provider Student in an Organized Health Care Education/Training Program; PCP Internal Medicine
DX: K52.9 Noninfective gastroenteritis and colitis, unspecified (principal); I48.91 Unspecified atrial fibrillation; Z79.01 Long term (current) use of anticoagulants; Z79.899 Other long term (current) drug therapy; E78.5 Hyperlipidemia, unspecified; Z86.73 Personal history of transient ischemic attack (TIA), and cerebral infarction without residual deficits; F17.210 Nicotine dependence, cigarettes, uncomplicated
CPT/HCPCS: 36415; 71045; 74177; 80053; 81001; 82565; 83605; 83690; 84484; 85027; 87086; 93005; 96361; 96372; 96374; 96375; 99284; J0500; J1171; J1630; J7120; Q9967

== ENCOUNTER 2025-01-13 01:40 | Emergency (ER) | payer OTHER, MEDICARE, SELFPAY ==
--- NOTE | ~2025-01-13 | XR_ITS ---
Portable chest x-ray Comparison: 10/26/2024 Clinical History: Chest pain Findings: Lungs are clear, without focal consolidation or pleural effusion. Cardiomediastinal silho uette is stable. Bones and soft tissues are unremarkable. Impression: Normal chest. Reviewed, dictated and finalized at [facility]. Impression: Normal chest.
[2025-01-13 01:40] VITALS: BP 117/58; PULSE 71; PULSE 78; RESP 17; TEMP 36.8; O2SAT 100
[2025-01-13 02:00] VITALS: BP 116/72; PULSE 64; RESP 13; O2SAT 100
[2025-01-13 04:00] VITALS: BP 131/68; PULSE 65; RESP 22; O2SAT 99
--- NOTE | 2025-01-13 05:15 | ECG_ITS ---
Test Date: 2025-01-13 05:24:36 Measurements Intervals [place] Rate: 49 P: 18 MT: 154 QRS: 15 QRSD: 90 T: 24 QT: 471 QTc: 427 Interpretive Statements SINUS BRADYCARDIA OTHERWISE NORMAL ECG Compared to ECG 07/30/2024 20:23:34 Atrial premature complex(es) no longer present Electronically Signed On 01-13-2025 09:57:32 CDT by Ivan Marie M.D.
--- NOTE | 2025-01-13 05:30 | ED.ABDPAIN ---
HPI - Abdominal Pain General Chief Complaint: Chest Pain Stated Complaint: Unknown History of Present Illness HPI narrative: 54-year-old female with a past medical history including cyclic vomiting, GERD, IBS, atrial fibrillation on Xarelto. Patient presents to the emergency department with several days of nausea vomiting and watery diarrhea. Patient states it feels very similar to her previous flare-up of colitis. Patient denies any recent abdominal surgeries and has history of cholecystectomy, appendectomy and hernia repair. No recent antibiotic use or recent hospital visits. Patient presents complaining of lower abdominal cramping pain not responsive to Bentyl or Zofran at home. She endorse some minor chest pain shortness a breath associated with this but is most concerned about her cramping lower abdominal pain associated with voluminous diarrhea and some vomiting. No trauma or injury. Related Data Home Medications Medication Instructions Recorded Confirmed Last Taken Type aluminum-mag hydroxide-simethicone 10 ml PO QID PRN Acid Reflux 05/28/20 01/12/25 07/23/24 History 400 mg-400 mg-40 mg/5 mL oral susp (Mylanta Maximum Strength) simethicone 125 mg chewable tablet 125 mg PO QID PRN Abdominal 05/28/20 01/12/25 04/24/21 21:00 History (Gas-X Extra Strength) Discomfort apixaban 5 mg tablet (Eliquis) 5 mg PO BID 10/23/23 01/12/25 07/30/24 History famotidine 20 mg tablet 20 mg PO DAILY PRN Acid Reflux 10/23/23 01/12/25 07/30/24 History metoprolol succinate 25 mg 25 mg PO DAILY 10/23/23 01/12/25 07/30/24 History tablet,extended release 24 hr flecainide 100 mg tablet 100 mg PO Q12H 10/29/23 01/12/25 07/30/24 History pantoprazole 40 mg tablet,delayed 40 mg PO BID 01/04/24 01/12/25 07/30/24 History release buspirone 10 mg tablet 10 mg PO BID 07/07/24 01/12/25 07/30/24 History dicyclomine 10 mg capsule 20 mg PO BID PRN cramping 07/31/24 01/12/25 07/30/24 History Allergies Allergy/AdvReac Type Severity Reaction Status Date / Time prochlorperazine AdvReac Severe Confusion Verified 01/12/25 09:04 metoclopramide (From Reglan) AdvReac Intermediate anxiety Verified 01/12/25 09:04 azithromycin AdvReac Unknown STOMACH Verified 01/12/25 09:04 UPSET promethazine (From Phenergan) AdvReac Jittery Verified 01/12/25 09:04 Review of Systems Review of Systems: As reviewed above in HPI [facility] Past Medical History Medical History Foot pain, right Achilles tendon contracture, right Chondromalacia of right knee Anemia History of TIA (transient ischemic attack) Irritable bowel syndrome with constipation History of hyperlipidemia History of atrial fibrillation History of gastroesophageal reflux (GERD) Adenomatous colon polyp Atrial fibrillation Arthritis GERD (gastroesophageal reflux disease) Celiac disease Diverticulosis Anxiety and depression Neuropathy Migraine headache Surgical History Surgical History History of endometrial ablation Hx of hernia repair Hx of laparoscopy Hx of dilation and curettage History of colonoscopy with polypectomy (03/2021) And repeat colonoscopy 2022 Status post lateral meniscectomy of right knee (07/2024) Hx of emergency section History of appendectomy History of delivery History of tubal ligation History of [place] fundoplication History of cholecystectomy Family History Family History Mother Family history of elevated blood lipids Family history of arthritis Sibling Family history of arthritis Grandparent Cerebrovascular accident Family history of cardiovascular disease Hypertension Diabetes mellitus Other Heart disease Acute myocardial infarction Father Alcoholism Mother Alcoholism Depression Anxiety Grandparent Throat cancer Cerebrovascular accident Heart problem Social History Social History Social History: She lives at home with her of 6 years. This is her 3rd marriage. She had 6 children. One son and 5 daughters. She smoked half pack of cigarettes per day since she was 14 years old but switched to vaping nicotine several years ago. She rarely drinks alcohol and only minute amounts. She uses marijuana daily. Code status: Full code (she would not want to be on the ventilator long-term or if she had no quality of life ) Surrogate decision maker: Smoking packs per day: 0.5 Smoking cigarettes per day: 10.0 Years smoked: 15 Smoking pack-years: 7.50 Smoking status: Current every day smoker Tobacco type: e-cigarettes/vaping Second hand tobacco smoke exposure: No Additional smoking assessment comments: Currently vapes. Alcohol intake: never Substance use: current Substance use type: marijuana Other substance usage details: Daily Last use: 07/30/24 Do You Feel Safe in your Home?: Yes Lack of Transportation: No Lack of Food: Never True Current Housing: Decline to Answer Concerned About Future Housing: Decline to Answer Difficulty Paying Gas/Electric Bills: Decline to Answer Difficulty Paying for Meds: Decline to Answer Currently Unemployed: Decline to Answer Education: Decline to Answer Difficulty w/ Childcare or Family Care: Decline to Answer Living arrangements: with family Occupation/Education: other Additional occupation/education comments: disabled Gender identity (if verbalized by the patient): Female Sexual Orientation (if Verbalized by the Patient): Straight or Heterosexual Spiritual care concerns: No Exam Narrative: GENERAL: Unwell appearing but not any acute distress, answering questions appropriately HEAD: [Normocephalic, atraumatic.] EYES: [PERRLA and EOMI.] ENT: Nares clear, no rhinorrhea or epistaxis. Mucous membranes moist. NECK: Supple. CHEST: [Clear to auscultation. No respiratory distress.] HEART: [Regular rate and rhythm]. No murmur heard. [Normal peripheral pulses.] ABDOMEN: [Soft, nondistended], [nontender], [No rigidity or guarding] EXTREMITIES: Normal range of motion. [No edema.] SKIN: Warm, dry, no rash. NEURO: [No focal deficits]. Alert and oriented [x3.] PSYCH: [Normal mood and affect.] Course Vital Signs Vital signs: Vital Signs Temperature 36.8 C 01/13/25 01:40 Pulse Rate 71 01/13/25 01:40 Respiratory Rate 17 01/13/25 01:40 Blood Pressure 117/58 L 01/13/25 01:40 Pulse Oximetry 100 01/13/25 01:40 Oxygen Delivery Room Air 01/13/25 01:40 Temperature 36.8 C 01/13/25 01:40 Pulse Rate 71 01/13/25 06:21 Respiratory Rate 18 01/13/25 06:21 Blood Pressure 106/68 01/13/25 06:21 Pulse Oximetry 100 01/13/25 06:21 Oxygen Delivery Room Air 01/13/25 01:40 MDM - Abdominal Pain MDM Narrative Medical decision making narrative: Patient care assumed during EMR down time with written records to be scanned in for additional information. Duplicate patient registration present at same time with different encounter number. 54-year-old female with a past medical history including cyclic vomiting, GERD, IBS, atrial fibrillation on Xarelto, previous colitis. Surgical history including cholecystectomy, appendectomy. Patient presents to the emergency depart with complaints of lower abdominal cramping pain associated with voluminous watery diarrhea and nauseousness with vomiting. She also told the triage staff she had some chest discomfort shortness of breath. She has no chest pain at this time, endorses some nauseousness without vomiting. Main concern is her lower abdominal pain. States it feels very similar to last time she had colitis. She is overall not any acute distress but is on well and uncomfortable appearing. Her vital signs reassuring without any tachycardia, fever, hypoxia normal blood pressure. Patient was given fluid resuscitation, pain control medications as well as antiemetics with Haldol given her numerous allergies to other antiemetics. Laboratory studies were drawn including CBC, CMP, lipase, lactic acid, troponin. EKG has x-ray and a CT scan with IV contrast was ordered. Patient's workup reveals no significant leukocytosis, anemia of 11.9 which is stable from baseline. Normal platelet count. Electrolyte panel is unremarkable. Normal glucose, normal LFTs, negative lactic acid. Negative troponin. Normal lipase. Urinalysis does not show any infection. Chest x-ray shows no acute findings. CT of the abdomen pelvis shows no acute abnormalities. Patient re-evaluated with good symptom control. Given her hemodynamic stability, no significant symptoms while here in the emergency department and unremarkable workup she can be safely discharged home. Given prescriptions for Bentyl, loperamide for diarrhea, and Zofran p.o. for nausea control. Patient safely discharged at this time. Medical Records Attestation: I reviewed the patient's medical records. Lab Data Attestation: I reviewed the patient's lab results. Labs: Lab Results 01/13/25 Range/Units 05:26 Troponin I < 0.012 (0.000-0.034) ng/mL Imaging Data Attestation: I personally reviewed and interpreted this imaging study as follows: My impression: CT A/P w/ IV contrast: Impression: No acute abnormality. Impressions Chest X-Ray 01/13/25 05:20 Impression: Normal chest. Radiologist's impression: ITS Impressions Chest X-Ray 01/13/25 05:20 Impression: Normal chest. ECG Data EKG #1: Attestation: I personally reviewed and interpreted this ECG as follows: ECG completion date: 01/13/25 ECG completion time: 05:24 Interpretation: Sinus bradycardia, no ST segment elevations, depressions or inversions. No signs of ectopy. Regular sinus rhythm. No significant interval change compared to prior. No signs of atrial fibrillation. Discharge Plan Discharge Clinical Impression: Abdominal pain, Nausea and vomiting, Chest pain, Gastroenteritis, Acute diarrhea Clinical Impression: (Ruled Out): Anemia Patient Disposition: Home Condition: Stable Instructions: Antibiotic Form, Gastroenteritis (DC), Acute Nausea and Vomiting (DC), Abdominal Pain (ED) Additional Instructions: All of your laboratory studies and imaging studies are reassuring. No signs of colitis, no signs of significant infection, all of your organs are healthy at this time, no signs of any cardiac damage. We will send you home a combination of symptom controlling medications including Zofran for nausea vomiting, loperamide for diarrhea and Bentyl for abdominal cramping. Return with any emergent concerns but please follow-up with your regular doctor for your your visit here today. Patient Language: Moz[place] Prescriptions: New loperamide [Anti-Diarrheal (loperamide)] 2 mg capsule 2 mg PO Q6H PRN (Reason: loose stool) Qty: 14 0RF dicyclomine 20 mg tablet 20 mg PO TID PRN (Reason: abdominal pain) Qty: 14 0RF ondansetron 4 mg tablet,disintegrating 4 mg PO Q8H PRN (Reason: nausea and vomiting) Qty: 10 0RF No Action metoprolol succinate 25 mg tablet extended release 24 hr 25 mg PO DAILY famotidine 20 mg tablet 20 mg PO DAILY PRN (Reason: Acid Reflux) Eliquis 5 mg tablet 5 mg PO BID flecainide 100 mg tablet 100 mg PO Q12H pantoprazole 40 mg tablet,delayed release (DR/EC) 40 mg PO BID buspirone 10 mg tablet 10 mg PO BID dicyclomine 10 mg capsule 20 mg PO BID PRN (Reason: cramping) simethicone [Gas-X Extra Strength] 125 mg Tablet,Chewable 125 mg PO QID PRN (Reason: Abdominal Discomfort) Patient Comments: Patient states that she takes one between meals. alum-mag hydroxide-simeth [Mylanta Maximum Strength] 400-400-40 mg/5 mL Suspension 10 ml PO QID PRN (Reason: Acid Reflux) Patient Comments: Patient states she takes in between meals and before bed. meclizine 12.5 mg tablet 12.5 mg PO TID PRN (Reason: dizziness) Qty: 10 0RF ondansetron 4 mg tablet,disintegrating 4 mg PO Q8H PRN (Reason: nausea and vomiting) Qty: 15 0RF amitriptyline 10 mg tablet See Rx Instructions .ROUTE .COMPLEX Qty: 30 5RF Dose Instruction: TAKE 1 TABLET BY MOUTH EVERYDAY AT BEDTIME Rx Instructions: TAKE 1 TABLET BY MOUTH EVERYDAY AT BEDTIME Follow-up/Referrals: Mandeep Pennington DO [Primary Care Provider] - Time of Disposition: 06:13
[2025-01-13 06:08] LABS: Troponin I < 0.012 ng/mL (0.000-0.034)
[2025-01-13 06:21] VITALS: BP 106/68; PULSE 71; RESP 18; O2SAT 100
--- NOTE | 2025-01-13 13:29 | ECG_ITS ---
Test Date: 2025-01-13 05:26:01 Measurements Intervals [place] Rate: 54 P: 47 WI: 155 QRS: 13 QRSD: 86 T: 27 QT: 456 QTc: 433 Interpretive Statements SINUS BRADYCARDIA LOW QRS VOLTAGE IN PRECORDIAL LEADS [QRS DEFLECTION < 1.0 mV IN CHEST LEADS] Compared to ECG 01/13/2025 05:24:36 NO SIGNIFICANT CHANGES Electronically Signed On 01-13-2025 15:10:12 CDT by Christin Jean Baptiste M.D.
== END 2025-01-13 06:21 | disposition home or self-care (01) ==
PROVIDERS: Emergency Provider Student in an Organized Health Care Education/Training Program; PCP Internal Medicine
DX: K52.9 Noninfective gastroenteritis and colitis, unspecified (principal); I48.91 Unspecified atrial fibrillation; E78.5 Hyperlipidemia, unspecified; F17.210 Nicotine dependence, cigarettes, uncomplicated; Z79.01 Long term (current) use of anticoagulants; Z79.899 Other long term (current) drug therapy; Z86.73 Personal history of transient ischemic attack (TIA), and cerebral infarction without residual deficits
CPT/HCPCS: 36415; 71045; 84484; 93005; 99284

== ENCOUNTER 2025-01-20 13:01 | Outpatient (CLI) | payer OTHER, MEDICARE, SELFPAY ==
--- NOTE | ~2025-01-20 | MM_ITS ---
EXAMINATION: MM screening karla BI w viktoria HISTORY: Screening TECHNIQUE: Craniocaudal and mediolateral oblique 3-D tomosynthesis images were obtained and synthetic 2-D images were generated. CAD analysis was submitted and interpreted. COMPARISON: No prior mammogram is available for comparison at this institution. BREAST PARENCHYMAL COMPOSITION: Not dense: There are scattered areas of fibroglandular density. FINDINGS: There is no evidence of suspicious mass, calcification, or architectural distortion to sugg est malignancy in either breast. There has been no suspicious interval change. IMPRESSION: 1. No mammographic evidence of malignancy. 2. Recommend routine screening mammography in one year. BI-RADS Category 1: Negative Reviewed, dictated and finalized at location B.
--- NOTE | ~2025-01-20 | DEXA_ITS ---
Bone Density Report Name: LUKASZ MAYS Age: 54 Sex: Female Ethnicity: White Date of : 1970 Indication: postmenopausal; screening for osteoporosis; inflammatory bowel disease; Referring Provider: JESSICA COBURN Study: Bone densitometry was performed. Exam Date: January 20, 2025 Accession number: [id number] Bone Density: Region BMD T-score Z-score Classification AP Spine(L1-L4) 1.019 -0.3 0.9 Normal Femoral Neck (Left) 0.711 -1.2 -0.1 Osteopenia Total Hip (Left) 0.892 -0.4 0.4 Normal Femoral Neck (Right) 0.684 -1.5 -0.3 Osteopenia Total Hip (Right) 0.816 -1.0 -0.3 Normal Femoral Neck Mean 0.698 -1.4 -0.2 Osteopenia Total Hip Mean 0.854 -0.7 0.1 Normal World Health Organization criteria for BMD impression classify patients as: Normal (T-score at or above -1.0), Osteopenia (T-score between -1.0 and -2.5), or Osteoporosis (T-score at or below -2.5). 10-year Fracture Risk(1): Major Osteoporotic Fracture 7.0% Hip Fracture 0.5% Reported Risk Factors: [place] (), Neck BMD=0.684, BMI=24.6 (1) FRAX(R) Version 3.08. Fracture probability calculated for an untreated patient. Fracture probability may be lower if the patient has received treatment. Clinical Information Provided by Patient: Has used the following medications: Vitamin D, multi Has the following medical conditions: Inflammatory bowel diseases Patient maximum height was 64.5 Menopause Age: 48 No regular weight bearing exercise Onset of menses at age 10 Number of children 6 Impression: The patient has low bone mass, based on the Right Femoral Neck T-score. Discussion: BONE DENSITY IS LOW AT ONE OR MORE SKELETAL SITES. This patient's lowest T-score is low at one or more skeletal sites. It meets the World Health Organization's (WHO) criteria for ?low bone mass? (T-score between -1.0 and -2.5). The patient's 10-year risk of fracture as calculated by FRAX is less than the threshold where pharmacological therapy is recommended by the National Osteoporosis Foundation (NOF). However, all treatment decisions require clinical judgment and consideration of individual patient factors, including patient preferences, comorbidities, previous drug use, risk factors not captured in the FRAX model (e.g., frailty, falls, vitamin D deficiency, increased bone turnover, interval significant decline in bone density) and possible under or overestimation of fracture risk by FRAX. The patient should follow a healthful lifestyle (good nutrition with adequate calcium and vitamin D, and appropriate weight-bearing exercise). Follow-Up: Consider repeating this study in 2 to 3 years to reassess this patient's status, or sooner if there is some new clinical indication. Reported by: EMILIE on 01/20/2025 1:29:00 PM. Reviewed, dictated and finalized at location A.
--- OUTSIDE RECORDS SUMMARY | 2025-01-20 13:05 | XMS_ITS | Clinical Summary ---
Author Organization [facility] HealthCare Care Team Providers Care Coil Winder Repair Name Role Phone Mere Landa NP Unavailable [phone] Parmjit Dai MD Primary Care Provider [phone] Tico Burton MD Unavailable [phone] Ivan Liang MD Unavailable Allergies Active Allergy [...] (two) times a day 60 tablet 2 5 025 Active acetaminophen (TYLENOL) 500 mg tablet Take 1 tablet (500 mg total) by mouth every 6 (six) hours as needed 3 Active busPIRone (BUSPAR) 10 mg tabletIndicatio ns:Generalized [...] 09/03/2023 Assessment & Plan (09/17/2023 9:54 AM TRANSFORMATION LEAD): Diet as tolerates. Continue bowel regimen if needed to avoid straining. No submerging incision for 1 more week. Light duty for another 2 weeks. Patient will call us back with any further questions or concerns. Assessment & Plan (09/03/2023 8:54 AM TRANSFORMATION LEAD): I will discuss her case with GI. [...] (09/10/2022): Added automatically from request for surgery [id number] Cyclical vomiting 09/05/2022 Gastritis 09/05/2022 Gastroesophageal reflux [...] 08/13/2021 Assessment & Plan (08/13/2021 9:33 AM TRANSFORMATION LEAD): Pt complains of pain with urination. Pt also complains of suprapubic pain. Plan - Urine analysis TIA (transient ischemic attack) 08/11/2021 Assessment & Plan (08/13/2021 9:29 AM TRANSFORMATION LEAD): Sarahy Gill 51-year-old female presenting with left [...] mg Assessment & Plan (08/12/2021 6:00 PM TRANSFORMATION LEAD): Sarahy Gill 51-year-old female presenting with left [...] recommendations Assessment & Plan (08/09/2021 6:14 PM TRANSFORMATION LEAD): Patient has a history of IBS with [...] agitation/anxiety Assessment & Plan (08/13/2021 9:30 AM TRANSFORMATION LEAD): Currently mood at baseline. Continue home med Celexa Assessment & Plan (08/12/2021 5:53 PM TRANSFORMATION LEAD): Currently mood at baseline. Continue home med Celexa Assessment & Plan (08/09/2021 6:30 PM TRANSFORMATION LEAD): Per patient has a history of bipolar depressive type Stable at this time Not currently on any medication Patient denies any suicidal homicidal ideation Intussusception intestine 08/09/2021 Assessment & Plan (08/09/2021 6:36 PM TRANSFORMATION LEAD): 08/08/2021 CT abdomen/pelvis with contrast: Possible cystitis, [...] q.day Assessment & Plan (08/13/2021 9:29 AM TRANSFORMATION LEAD): Blood pressure has been under control Metoprolol restarted Assessment & Plan (08/12/2021 5:49 PM TRANSFORMATION LEAD): Blood pressure has been under control Metoprolol has been on hold-to allow for permissive hypertension for the next 24 hours, will restart tomorrow Assessment & Plan (08/09/2021 6:31 PM TRANSFORMATION LEAD): Have reviewed 24 hour blood pressures and [...] consult: Assessment & Plan (08/09/2021 6:12 PM TRANSFORMATION LEAD): CT abdomen pelvis with contrast at [facility] yesterday showed intussusception CT abdomen pelvis with contrast at [facility]: Showed resolution of intussusception Patient has [...] monitor Assessment & Plan (08/13/2021 9:29 AM TRANSFORMATION LEAD): Currently in sinus rhythm. Eliquis on hold will resume on August 15. Continue with flecainide Metoprolol restarted Assessment & Plan (08/12/2021 5:54 PM TRANSFORMATION LEAD): Currently in sinus rhythm. Eliquis on hold will resume on August 15. Continue with flecainide Metoprolol on hold will resume tomorrow Assessment & Plan (08/09/2021 6:18 PM TRANSFORMATION LEAD): No acute events since admission Patient on Eliquis Metoprolol for rate control with hold parameters Will continue to monitor Essential tremor 10/12/2018 Assessment & Plan (08/13/2021 9:30 AM TRANSFORMATION LEAD): B/l hand with tremor - no changes in strength Assessment & Plan (08/09/2021 6:30 PM TRANSFORMATION LEAD): Patient reports after waking up had increase [...] consult Assessment & Plan (08/13/2021 9:30 AM TRANSFORMATION LEAD): Currently in no acute exacerbation. -continue Bentyl Assessment & Plan (08/12/2021 5:47 PM TRANSFORMATION LEAD): Currently in no acute exacerbation. -continue Bentyl Assessment & Plan (08/09/2021 6:15 PM TRANSFORMATION LEAD): Patient on Bentyl Monitoring electrolytes Assessment & [...] Will get all the records from [place] and then regroup to discuss possible treatment options. Orthostatic dizziness 09/16/2016 Palpitations 07/29/2016 Migraine headache 07/29/2016 Assessment & Plan (12/18/2021 4:59 PM CDT): Started home Topamax Assessment & Plan (08/09/2021 6:17 PM TRANSFORMATION LEAD): Patient not complaining of headache or migraines at this time Sumatriptan on hold Hypokalemia Encounters Date Type Department Care Team Description 01/19/2025 Telephone [facility] Digestive Disease Center [facility] [address] [place] [address] Magda Brooks RN 01/19/2025 Telephone [facility] Gastroenterology [address] [place] [address] Medical [address], [address] [place] [address] Abena Lam RN GI Preprocedure; Scheduling Testing/Treatment 01/16/2025 Telephone [facility] Gastroenterology [address] [place] [address] Medical [address], [address] [place] [address] Abena Lam, KIET Scheduling Testing/Treatment; Unsuccessful Phone Call 2 01/16/2025 Telephone [facility] Specialty Services [address] [place] [address] Katharine Bee, KIET 01/16/2025 Telephone [facility] Gastroenterology [address] [facility] Advanced Medicine 12th [place] [address] [place] [address] Katharine Carty 01/12/2025 Telephone [facility] Gastroenterology [address] [place] [address] Medical [address], [address] [place] [address] Abena Lam RN Scheduling Testing/Treatment 01/12/2025 Orders Only [facility]) [facility] Minimally Invasive Surgery [address] [place] [address] Floor, [place] [address] Say Davila MD PhD Gastroesophageal reflux disease, unspecified whether esophagitis present (Primary Dx) 01/09/2025 Telephone [facility] Gastroenterology [address] [place] [address] [place] [id number] Marah Byrnes RMA PRE PROCEDURE ASSESSMENT 01/09/2025 Orders Only [facility] Gastroenterology [address] [place] [address] [place] [id number] Forest Catherine MD Esophageal dysphagia (Primary Dx); Gastroesophageal reflux disease with esophagitis without hemorrhage 01/06/2025 Orders Only [facility]) [facility] Minimally Invasive Surgery [address] [place] [address], [place] [address] Say Davila MD PhD Dysphagia, unspecified type (Primary Dx) 01/03/2025 Orders Only [facility]) [facility] Minimally Invasive Surgery [address] [place] [address], [place] [address] Say Davila MD PhD Gastroesophageal reflux disease, unspecified whether esophagitis present (Primary Dx) 11/25/2024 Telephone [facility] GI Center [facility] [place] [phone] Julia Wyman RN 11/11/2024 Telephone [facility] Gastroenterology [address] [place] [address] [place] [address] [place] [address] Katharine Carty Refill request from Last 3 Months Immunizations Immunization Administration [...] 0.6 oz pur e alcohol) on occasion pushd Utilities Answer Date Recorded In the past 12 months has [employer], gas, oil, or water [employer] threatened to shut off services in your [...] How often do you attend chur or anabaptist services? Never 09/09/2023 Do you [...] place to sleep or slept in a care home (including now)? No 09/09/2023 Personal Safety Answer Date Recorded Have you ever been in or are you currently in a harmful physical or emotional relationship or is someone making you feel afraid or unsafe? Denies 02/08/2024 Comments No Sex and Gender Information Value Date Recorded Sex Assigned at Not on file Legal Sex Female 10:06 AM TRANSFORMATION LEAD Gender Identity Female 06/17/2024 7:02 AM CDT [...] - - Weight 65.3 kg (144 lb) 01/19/2025 10:15 AM CDT Height 161.3 cm (5' 3.5 ) 01/19/2025 10:15 AM CD T Body Mass Index 25.11 01/19/2025 10:15 AM CDT Plan of Treatment Upcoming Encounters Date Type Department Care Team (Latest Contact Info) Description 02/21/2025 1:00 PM CDT Hospital Encounter [facility] Digestive Disease [place] [address] [address] Marv Earl MD [address] [address] 02/21/2025 1:00 PM CDT - 02/21/2025 1:30 PM CDT Surgery [facility] Digestive Disease [place] [address] [address] Marv Earl MD [address] [address] EGD/EndoFLIP/YI Scheduled Procedures Name Priority Associated Diagnoses Date/Ti ia ESOPHAGOGASTRODUODENOSCOPY Esophageal dysphagia Gastroesophageal reflux disease with esophagitis without hemorrhage 02/21/2025 1:00 PM CDT ESOPHAGOGASTRODUODENOSCOPY Open Access Gastroesophageal reflux disease, unspecified [...] mammogram, encounter for COLONOSCOPY 10/29/2022 7:59 AM TRANSFORMATION LEAD from Last 3 Months or Most Recently [...] nal Result * COLONOSCOPY (10/29/2022 7:59 AM TRANSFORMATION LEAD) Anatomical Region Laterality Modality Other Narrative Procedure Note Germania Sorto MD - 10/29/2022 7:59 AM CST [facility] Patient Name: Sarahy Gill Procedure Date: 10/29/2022 7:59 AM Date of : 1970 Admit Type: Outpatient Age: 52 Gender: Female Attending MD: Germania Sorto M.D. Room: [facility] ENDOSCOPY ROOM 1 Note Status: Finalized Patient [...] under direct vision. The Pediatric Colonoscope PCF-H190L [id number] was introducedthrough the anus and advanced to [...] 7:59 AM Procedure Code(s): --- Professional --- 40734, Colonoscopy, flexible; with biopsy, single or multiple Diagnosis Code(s): --- Professional --- K64.8, Other hemorrhoids D12.3, Benign neoplasm of transverse colon (hepatic flexure orsplenic flexure) K52.9, Noninfective gastroenteritis and colitis, unspecified CPT copyright 2020 [employer]. All rights reserved. The codes documented in this report are preliminary and upon medical records coder reviewmay be revised to meet current compliance requirements. Recognized by the [employer] [employer] for promoting quality in endoscopy Germania Sorto MD ENDOSCOPY PROCEDURES Final Result from Last 3 Months or Most Recently Relevant to Health Maintenance Insurance [facility] MEDICARE ADVANTAGE [facility] MEDICARE ADVANTAGE [employer] Advance Directives For more information, please contact: [phone] Documents on File Type Date Recorded Patient Lining Presser Expl anation ADVANCE DIRECTIVE 08/14/2021 9:12 AM Raz r of Student Liaison Officer-Medical * Full Code (Latest Code Status on [...] 8:07 AM 10/29/2022 2:30 PM Care Teams Coil Winder Repair Relationship Specialty Start Date End Date Parmjit Dai MD PCP - General 12/31/20 Mere Landa NP Nurse Practitioner 02/07/20 Tico Burton MD Surgeon General Surgery 08/09/21 Ivan Linag MD Consulting Physician General Surgery 09/09/23
--- OUTSIDE RECORDS SUMMARY | 2025-01-20 13:05 | XMS_ITS | Encounter Summary ---
Author Organization [facility] Healthcare Address [address] [place] [address] Care Team Providers Care Road Maker Name Role Phone Mere Landa NP Unavailable [phone] Parmjit Dai MD Primary Care Provider [phone] Tico Burton MD Unavailable [phone] Ivan Liang MD Unavailable Reason for Visit * Reason Onset Date Comments Scheduling Appointments 06/19/2021 confirmi ng mammogram appt Encounter Details Date Type Department Care Team (Late st Contact Info) Description 06/19/2021 Telephone [facility] [address] [place] [address] Cheryl Trejo RT Scheduling Appointments (confirming mammogram [...] on file Legal Sex Female 10:06 AM DESKTOP SUPPORT ASSOCIATE Gender Identity Female 06/17/2024 7:02 AM CDT Sexual Orientation Not on file documented as of this encounter Plan of Treatment Upcoming Encounters Date Type Department Care Team (Latest Contact Info) Description 02/21/2025 1:00 PM CDT Hospital Encounter [facility] Digestive Disease [place] [address] [facility] [address] [place] [address] Marv Earl MD [address] [place] [address] 02/21/2025 1:00 PM CDT - 02/21/2025 1:30 PM CDT Surgery [facility] Digestive Disease [place] [address] [facility] [address] [place] [address] Marv Earl MD [address] [place] [address] EGD/EndoFLIP/YI Scheduled Procedures Name Priority Associated Diagnoses Date/Ti ri ESOPHAGOGASTRODUODENOSCOPY Esophageal dysphagia Gastroesophageal reflux disease with [...] COVID: Suspected 07/06/2022 07/06/2022 07/06/2022 3:52 AM DESKTOP SUPPORT ASSOCIATE COVID: Suspected 08/18/2022 08/18/2022 08/18/2022 12:59 AM DESKTOP SUPPORT ASSOCIATE COVID: Suspected 09/19/2023 09/19/2023 09/19/2023 11:01 AM DESKTOP SUPPORT ASSOCIATE C. difficile suspected 07/21/2024 07/21/202407/22 3:05 AM DESKTOP SUPPORT ASSOCIATE documented as of this encounter Care Teams Road Maker Relationship Specialty Start Date End Date Parmjit Dai MD PCP - General 12/31/20 Mere Landa NP Nurse Practitioner 02/07/20 Tico Burton MD Surgeon General Surgery 08/09/21 Ivan Liang MD Consulting Physician General Surgery 09/09/23 documented as of this encounter
--- OUTSIDE RECORDS SUMMARY | 2025-01-20 13:05 | XMS_ITS | Clinical Summary ---
Author Organization [facility] Address [address] [place] [address] Phone Care Team Providers Care Net Application Support Specialist Name Role Phone Parmjit Dai MD Primary Care Provider [phone] Jazmine Kulkarni MD Unavailable [phone] Mir [place] MD Unavailable Allergies Active Allergy [...] Comments Blood Pressure 96/66 10/29/2023 8:05 AM CLIENT EXECUTIVE Pulse 52 10/29/2023 8:05 AM CLIENT EXECUTIVE Temperature 36.9 C (98.4 F) 10/16/2023 8:53 AM CLIENT EXECUTIVE Respiratory Rate 20 10/29/2023 8:05 AM CLIENT EXECUTIVE Oxygen Saturation 100% 10/16/2023 8:53 AM CLIENT EXECUTIVE Inhaled Oxygen Concentration - - Weight 56.7 kg (125 lb) 10/29/2023 8:05 AM CLIENT EXECUTIVE Height 162.6 cm (5' 4 ) 10/29/2023 8:05 AM CLIENT EXECUTIVE Body Mass Index 21.46 10/29/2023 8:05 AM CLIENT EXECUTIVE Plan of Treatment Health Maintenance Due Date [...] age to complete this topic Insurance MEDICAID [place] MEDICARE C [facility] Care Teams Net Application Support Specialist Relationship Specialty Start Date End Date Parmjit Dai MD [address] [place] [address] [address] [place] [address] PCP - General Family Medicine 05/21/22 Jazmine Kulkarni MD [address] [place] [address] [address] [place] [address] Family Medicine 05/21/22 Mir [place] MD [address] [place] [address] Consulting Physician Urology 10/29/23
--- OUTSIDE RECORDS SUMMARY | 2025-01-20 13:05 | XMS_ITS | Encounter Summary ---
Author Organization [facility] Healthcare Address [address] [place] [address] Care Team Providers Care B2B Sales Manager Name Role Phone Mere Landa NP Unavailable [phone] Parmjit Dai MD Primary Care Provider [phone] Tico Burton MD Unavailable [phone] Ivan Liang MD Unavailable Encounter Details Date Type Department Care Team (Late st Contact Info) Description 01/19/2025 Telephone [facility] Digestive Disease Center [address] [address] Magda Brooks RN Social History Tobacco Use Types Packs/Day Years Used Date Smoking Tobacco: Former Cigarettes 4 - 1999 Vaping Smokeless Tobacco: Never Comments:off and on Alcohol Use Standard Drinks/Week Comments No 0 (1 standard drink = 0.6 oz pur e alcohol) on occasion [facility] Utilities Answer Date Recorded In the past 12 months has [employer] electric, gas, oil, or water company threatened [...] any clubs o r organizations such as mormon groups, unions, fraternal or athletic groups, or [...] on file Legal Sex Female 10:06 AM BONDING MOLDER Gender Identity Female 06/17/2024 7:02 AM CDT Sexual Orientation Not on file documented as of this encounter Last Filed Vital Signs Vital Sign Reading Time Taken Comments Blood Pressure - - Pulse - - Temperature - - Respiratory Rate - - Oxygen Saturation - - Inhaled Oxygen Concentration - - Weight 65.3 kg (144 lb) 01/19/2025 10:15 AM CDT Height 161.3 cm (5' 3.5 ) 01/19/2025 10:15 AM CD T Body Mass Index 25.11 01/19/2025 10:15 AM CDT documented in this encounter Miscellaneous Notes * Telephone Encounter - Magda Brooks RN - 01/19/2025 10:19 AM CDT Sarahy Gill is scheduled for EGD/YI on 02/21 with 11:00 am arrival for Yi teaching, then EGD/Yi at 1:00 pm. Information and instructions; including when to hold medications, were reviewedwith patient then placed in my chart and the mail. documented in this encounter Plan of Treatment Upcoming Encounters Date Type Department Care Team (Latest Contact Info) Description 02/21/2025 1:00 PM CDT Hospital Encounter [facility] Digestive Disease [place] [address] [facility] [address] [place] [address] Marv Earl MD [address] [place] [address] 02/21/2025 1:00 PM CDT - 02/21/2025 1:30 PM CDT Surgery [facility] Digestive Disease Center [address] [facility] [address] [place] [address] Marv Earl MD [address] [place] [address] EGD/EndoFLIP/YI Scheduled Procedures Name Priority Associated Diagnoses Date/Ti me ESOPHAGOGASTRODUODENOSCOPY Esophageal dysphagia Gastroesophageal reflux disease with esophagitis without hemorrhage 02/21/2025 1:00 PM CDT ESOPHAGOGASTRODUODENOSCOPY Open Access Gastroesophageal reflux disease, unspecified whether esophagitis present ESOPHAGOGASTRODUODENOSCOPY Open Access Dysphagia, unspecified type documented as of this encounter Visit Diagnoses Not on filedocumented in this encounter Historical Medications * This list may reflect changes made after this encounter. acetaminophen (TYLENOL) 500 mg tablet Take 1 tablet (500 mg total) by mouth every 6 (six) hours as needed 07/18/2023 added in this encounter Care Teams B2B Sales Manager Relationship Specialty Start Date End Date Parmjit Dai MD PCP - General 12/31/20 Mere Landa NP Nurse Practitioner 02/07/20 Tico Burton MD Surgeon General Surgery 08/09/21 Ivan Liang MD Consulting Physician General Surgery 09/09/23 documented as of this encounter
--- OUTSIDE RECORDS SUMMARY | 2025-01-20 13:05 | XMS_ITS | Clinical Summary ---
Author Organization [facility] Address [address] [place] [address] Care Team Providers Care Welfare Manager Name Role Phone Mandeep Pennington DO Primary Care Provider [phone] Source Comments [facility],non-owned Affiliates and Associated Physician Practices is amultiple site organization consisting of ambulatory clinics and hospital sitesin [place], [place], [place] and [place]. This disclosure is being madepursuant to the Care Everywhere program and may not contain all information available regarding this patient. Last updated 18.[facility] Allergies Active Allergy Reactions Criticality Noted Date [...] to this non-inflammatory hypersensitivity pain disorder. Sarahy Theresa Gill [...] - 06/07/2024 7:12 AM CDT Performed at: [address] [place] [id number] Weaving Inspector: Edmundo Dias PhD, Phone: [phone] Rolando Castro DO LAB - CHEMISTRY ORDERABLES Final Result Performing Organization Address City/State/[facility] Co de Phone Number [facility] INSURANCE BILL [address] [place] [address] from Last 3 Months or Most Recently Relevant to Health Maintenance Insurance [facility] [facility] MANAGED MEDICARE ADV Care Teams Welfare Manager Relationship Specialty Start Date End Date Mandeep Pennington DO [address] [place] [phone] PCP - General Internal Medicine 06/30/24
--- OUTSIDE RECORDS SUMMARY | 2025-01-20 13:05 | XMS_ITS | Encounter Summary ---
Author Organization [facility] Address [address] [place] [address] Phone Care Team Providers Care Vascular Technologist Name Role Phone Mere Landa NP Unavailable [phone] Parmjit Dai MD Primary Care Provider [phone] Tico Burton MD Unavailable [phone] Ivan Liang MD Unavailable Reason for Visit * Reason Onset Date Comments GI Preprocedure 01/19/2025 Scheduling Testing/Treatment 01/19/2025 Encounter Details Date Type Department Care Team (Late st Contact Info) Description 01/19/2025 Telephone [facility] Gastroenterology [facility] Medical Office Building [address], [address] [place] [address] Abena Lam RN GI Preprocedure; Scheduling Testing/Treatment Social History Tobacco Use Types Packs/Day Years Used Date Smoking Tobacco: Former Cigarettes - 1999 Vaping Smokeless Tobacco: Never Comments:off and on Alcohol Use Standard Drinks/Week Comments No 0 (1 standard drink = 0.6 oz pur e alcohol) on occasion [facility] Utilities Answer Date Recorded In the past 12 months has [employer], gas, oil, or water company threatened to [...] often do you attend chur ch or confucianist services? 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 MANUEL Indication: GERD, eso dysphagia Referring Physician: Giovanni Date Referred: CLINICAL ASSESSMENT [x] Clinical assessment obtained via phone call with patient 01/19/25 [x]COVID/Flu Screening questions []BMI>45, Weight >350 lbs [] Patient had GI procedure/CPAP clinic/GI clinic <30 days (if Yes, no medical screening questions needed unless new clinical issues in last 30 days) Medical screening questions: BMI/Weight: NA CARDIOVASCULAR: A fib- If new (not previously known) diagnosis, needs cards or CPAP first dx 5 yrs ago RESPIRATORY/LUNG: None RENAL/LIVER/GI: None GI: Previous COLON or EGD: both Hx of Polyps, Hilton, Barretts:yes colon polyps Hx of Constipation:N/A Have you ever required a two day prep? N/A BLEEDING/CLOTTING: None NEUROLOGICAL: Stroke- If within 1 month escalate to GI physician to consider CPAP referral/continuing blood thinner/reschedule. 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 No [] Yes - Letter Sent to Ordering Physician/Spring Tacker Date sent: Hold instructions: GLP Weight Loss Medications N/A Educated Patient on the need to hold Medication, and to contact their ordering MD or Spring Tacker about bridging medication for procedure. Y/N: No/NA None [] Yes - Letter Sent to Ordering Physician/Spring Tacker Hold older Instructions: BLOOD THINNERS/ANTICOAG/ANTIPLATELET (BESIDES ASA) Medication: Apixaban (Eliquis) Physician contacted for hold order/date sent: Tarik Michael MD 01/19/25 Hold order Method sent: Kitchon Fax Date hold received: Hold instructions: CONTINUE ASPIRIN INFORMATION REQUESTED []Imaging: []Medical Progress Note/H&P []Medication list []Other: PATIENT OPTIMIZATION []Physician reviewing escalation: []CPAP: Date scheduled: Outcome : [] Location limitations: Scheduling Scheduling location limitations: Lead Ingot Molder needed [x] NA Language: POA [] NA Name: Arnulfo Gill [id number] Required extended education:no SPECIAL PROCEDURE INSTRUCTIONS Scheduling Notes Procedure information Date of procedure: 02/21/25 Time of procedure: 1300 Arrival time: 1100 for MANUEL teaching Location: [facility] Proceduralist: Mady Armas Method of instructions: MyChart and Verbal [x]Confirmation of ride/senior science consultant [x]Post anesthesia restrictions given [x]NPO Instructions: [x]Diet Instructions: [x]Take non-blood thinner prescription meds that morning [x]Bring med list, photo ID, insurance card, no valuables [x]Bring COVID vaccination card (if vaccinated) Bowel Prep Prep prescribed: Method of Bowel Prep (RX): ----- Message from Nurse Magda Tovar sent at 01/19/2025 8:26 AM CDT ----- Regarding: RE: EGD/Endolip/MANUEL Abena, Following up on this EGD/Manuel. Have you been able to reach patient (I know reaching the pt. Has been a challenge) to see if 02/21 afternoon works-11:00 arrival for teaching, the EGD/Manuel at 1300? Doe, Magda ----- Message ----- From: Maty Hammond RN Sent: 01/17/2025 4:02 PM CDT To: Maura Ray, A; Abena Verduzco# Subject: RE: EGD/Endolip/MANUEL Abena, Clarification on previous note. We can get her squeezed in on 02/21, not 02/17. But, everything else in previous message is the same. Let's do the EGD Endoflip at 1300. But, I'll need her to arrive by 1100 for pre MANUEL teaching. That is earlier than we usually ask them to come, but I can only do her teaching at that time because of our schedule. And we can't do the EGD/MANUEL earlier than 1300. If you don't get a response, Maura (Dr. Davila's MA) said this is not urgent ane we can wait until the February schedule comes out. Anna ----- Message ----- From: Abena Lam RN Sent: 01/16/2025 3:42 PM CDT To: Monique Mora RN; Magda Brooks RN; M# Subject: RE: EGD/Endolip/MANUEL FYI, 2nd attempt by phone made today, no answer, left a message and sent a mychart letter. Will make another attempt in a few days. After that will defer to Ref MD to contact pt. Thanks! ----- Message ----- From: Monique Mora RN Sent: 01/12/2025 3:21 PM CDT To: Abena Lam RN; Magda Churchill# Subject: RE: EGD/Endolip/MANUEL Abena let me know if you need anything else. KBO ----- Message ----- From: Abena Lam RN Sent: 01/12/2025 2:57 PM CDT To: Monique Mora RN; Magda Brooks, RN; # Subject: RE: EGD/Endolip/MANUEL I called and had to leave a message on vm. Will let you know once I speak with pt. thanks ----- Message ----- From: Maty Hammond RN Sent: 01/12/2025 2:33 PM CDT To: Abena Lam RN; Monique Mora, RN; # Subject: RE: EGD/Endolip/MANUEL I can only do 02/17. Let's do the EGD Endoflip at 1300. But, I'll need her to arrive by 1100 for pre MANUEL teaching. That is earlier than we usually ask them to come, but I can only do her teaching at that time because of our schedule. And we can't do the EGD/MANUEL earlier than 1300. If that date doesn't work for her, it will have to be February. Let me know if she takes it and I will mira with her MANUEL instructions. Anna ----- Message ----- From: Abena Lam RN Sent: 01/12/2025 1:03 PM CDT To: Monique Mora RN; Magda Brooks, RN; # Subject: RE: EGD/Endolip/MANUEL AR has openings on 02/17, 02/21 and 02/24 ----- Message ----- From: Maty Hammond RN Sent: 01/12/2025 12:18 PM CDT To: Abena Lam RN; Monique Mora, RN; # Subject: EGD/Endolip/MANUEL Vickey, This patient should be coming across one of your radars. Orders were placed today by Dr Davila's office for an EGD/Endoflip to be done at [facility] as well as a MANUEL pH capsule that will be placed during the same procedure. We will need to coordinate a day for that. Maura (Dr. Davila's MA) said this is noturgent. I told her it would likely be in February. Depending on Marv/Germania's schedules we might be able to come up with a date for MANUEL with you at the end of January (but not likely). Call [employer] when you get the order and we'll see what we can do. Thanks, Anna documented in this encounter Plan of Treatment Upcoming Encounters Date Type Department Care Team (Latest Contact Info) Description 02/21/2025 1:00 PM CDT Hospital Encounter [facility] Digestive Disease [place] [address] [address] Marv Earl MD [address] [address] 02/21/2025 1:00 PM CDT - 02/21/2025 1:30 PM CDT Surgery [facility] Digestive Disease [place] [id number] [address] Marv Earl MD [address] [facility] [place] [address] EGD/EndoFLIP/MANUEL Scheduled Procedures Name Priority Associated Diagnoses Date/Ti me ESOPHAGOGASTRODUODENOSCOPY Esophageal dysphagia Gastroesophageal reflux disease with esophagitis without hemorrhage 02/21/2025 1:00 PM CDT ESOPHAGOGASTRODUODENOSCOPY Open Access Gastroesophageal reflux disease, unspecified whether esophagitis present ESOPHAGOGASTRODUODENOSCOPY Open Access Dysphagia, unspecified type documented as of this encounter Visit Diagnoses Diagnosis Esophageal dysphagia- Primary Dysphagia, pharyngoesophageal phase Gastroesophageal reflux disease with esophagitis without hemorrhage Dysphagia Gastroesophageal reflux disease with esophagitis without hemorrhage Esophageal dysphagia Dysphagia, pharyngoesophageal phase Gastroesophageal reflux disease with esophagitis without hemorrhage documented in this encounter Orders Case Request Count Last Ordered Date First Orde red Date CASE REQUEST GI 1 01/19/2025 documented in this encounter Care Teams Vascular Technologist Relationship Specialty Start Date End Date Parmjit Dai MD PCP - General 12/31/20 Mere Landa NP Nurse Practitioner 02/07/20 Tico Burton MD Surgeon General Surgery 08/09/21 Ivan Liang MD Consulting Physician General Surgery 09/09/23 documented as of this encounter
--- OUTSIDE RECORDS SUMMARY | 2025-01-20 13:05 | XMS_ITS | Referral Summary ---
Author Organization [facility] HealthCare Care Team Providers Care Puttying And Calking Supervisor Name Role Phone Mere Landa NP Unavailable [phone] Parmjit Dai MD Primary Care Provider [phone] Tico Burton MD Unavailable [phone] Ivan Liang MD Unavailable Encounters Date Type Department Care Team Description 01/19/2025 Telephone [facility] Disease [facility] [address] [place] [address] Magda Brooks RN 01/19/2025 Telephone [facility] Gastroenterology [address] [place] [address] [address], [address] [place] [address] Abena Lam, KIET GI Preprocedure; Scheduling Testing/Treatment 01/16/2025 Telephone [facility] Gastroenterology [address] [place] [address] [address] [place] [address] Abena Lam, KIET Scheduling Testing/Treatment; Unsuccessful Phone Call 2 01/16/2025 Telephone [facility] Specialty Services [address] [place] [address] Katharine Bee RN 01/16/2025 Telephone [facility] Gastroenterology [facility], [facility] Medicine 12th [place] [address] [place] [address] Katharine Carty 01/12/2025 Telephone [facility] Gastroenterology [address] [facility] Medical Office Building [address], [address] [place] [address] Abena Lam, KIET Scheduling Testing/Treatment 01/12/2025 Orders Only [facility]) - [facility] Minimally Invasive Surgery [address] [place] [address], [place] [address] Say Davila MD PhD Gastroesophageal reflux disease, unspecified whether esophagitis present (Primary Dx) 01/09/2025 Telephone [facility] Gastroenterology [address] [place] [address] [place] [address] Marah Byrnes RMA PRE PROCEDURE ASSESSMENT 01/09/2025 Orders Only [facility] Gastroenterology [address] [place] [address] [place] [address] Forest Catherine MD Esophageal dysphagia (Primary Dx); Gastroesophageal reflux disease with esophagitis without hemorrhage 01/06/2025 Orders Only [facility]) - [facility] Minimally Invasive Surgery [address] [place] [address], [place] [address] Say Davila MD PhD Dysphagia, unspecified type (Primary Dx) 01/03/2025 Orders Only [facility]) - [facility] Minimally Invasive Surgery [address] [place] [address], [place] [address] Say Davila MD PhD Gastroesophageal reflux disease, unspecified whether esophagitis present (Primary Dx) 11/25/2024 Telephone [facility] [address] [place] [address] Julia [place], KIET 11/11/2024 Telephone [facility] Gastroenterology [facility] [address] [place] [address] Katharine Carty Refill request from Last 3 Months Allergies Active Allergy [...] 09/03/2023 Assessment & Plan (09/17/2023 9:54 AM WORKFORCE SPECIALIST): Diet as tolerates. Continue bowel regimen if needed to avoid straining. No submerging incision for 1 more week. Light duty for another 2 weeks. Patient will call us back with any further questions or concerns. Assessment & Plan (09/03/2023 8:54 AM WORKFORCE SPECIALIST): I will discuss her case with [...] (09/10/2022): Added automatically from request for surgery [id number] Cyclical vomiting 09/05/2022 Gastritis 09/05/2022 Gastroesophageal reflux [...] 08/13/2021 Assessment & Plan (08/13/2021 9:33 AM WORKFORCE SPECIALIST): Pt complains of pain with urination. Pt also complains of suprapubic pain. Plan - Urine analysis TIA (transient ischemic attack) 08/11/2021 Assessment & Plan (08/13/2021 9:29 AM WORKFORCE SPECIALIST): Sarahy Gill 51-year-old female presenting with [...] mg Assessment & Plan (08/12/2021 6:00 PM WORKFORCE SPECIALIST): Sarahy Gill 51-year-old female presenting with [...] recommendations Assessment & Plan (08/09/2021 6:14 PM WORKFORCE SPECIALIST): Patient has a history of IBS [...] agitation/anxiety Assessment & Plan (08/13/2021 9:30 AM WORKFORCE SPECIALIST): Currently mood at baseline. Continue home med Celexa Assessment & Plan (08/12/2021 5:53 PM WORKFORCE SPECIALIST): Currently mood at baseline. Continue home med Celexa Assessment & Plan (08/09/2021 6:30 PM WORKFORCE SPECIALIST): Per patient has a history of bipolar depressive type Stable at this time Not currently on any medication Patient denies any suicidal homicidal ideation Intussusception intestine 08/09/2021 Assessment & Plan (08/09/2021 6:36 PM WORKFORCE SPECIALIST): 08/08/2021 CT abdomen/pelvis with contrast: Possible [...] q.day Assessment & Plan (08/13/2021 9:29 AM WORKFORCE SPECIALIST): Blood pressure has been under control Metoprolol restarted Assessment & Plan (08/12/2021 5:49 PM WORKFORCE SPECIALIST): Blood pressure has been under control Metoprolol has been on hold-to allow for permissive hypertension for the next 24 hours, will restart tomorrow Assessment & Plan (08/09/2021 6:31 PM WORKFORCE SPECIALIST): Have reviewed 24 hour blood pressures [...] consult: Assessment & Plan (08/09/2021 6:12 PM WORKFORCE SPECIALIST): CT abdomen pelvis with contrast at [facility] yesterday showed intussusception CT abdomen pelvis with contrast at [facility]: Showed resolution of intussusception Patient has [...] monitor Assessment & Plan (08/13/2021 9:29 AM WORKFORCE SPECIALIST): Currently in sinus rhythm. Eliquis on hold will resume on August 15. Continue with flecainide Metoprolol restarted Assessment & Plan (08/12/2021 5:54 PM WORKFORCE SPECIALIST): Currently in sinus rhythm. Eliquis on hold will resume on August 15. Continue with flecainide Metoprolol on hold will resume tomorrow Assessment & Plan (08/09/2021 6:18 PM WORKFORCE SPECIALIST): No acute events since admission Patient on Eliquis Metoprolol for rate control with hold parameters Will continue to monitor Essential tremor 10/12/2018 Assessment & Plan (08/13/2021 9:30 AM WORKFORCE SPECIALIST): B/l hand with tremor - no changes in strength Assessment & Plan (08/09/2021 6:30 PM WORKFORCE SPECIALIST): Patient reports after waking up had [...] consult Assessment & Plan (08/13/2021 9:30 AM WORKFORCE SPECIALIST): Currently in no acute exacerbation. -continue Bentyl Assessment & Plan (08/12/2021 5:47 PM WORKFORCE SPECIALIST): Currently in no acute exacerbation. -continue Bentyl Assessment & Plan (08/09/2021 6:15 PM WORKFORCE SPECIALIST): Patient on Bentyl Monitoring electrolytes Assessment [...] ibs-d. Will get all the records from [place] and then regroup to discuss possible treatment options. Orthostatic dizziness 09/16/2016 Palpitations 07/29/2016 Migraine headache 07/29/2016 Assessment & Plan (12/18/2021 4:59 PM CDT): Started home Topamax Assessment & Plan (08/09/2021 6:17 PM WORKFORCE SPECIALIST): Patient not complaining of headache or [...] 0.6 oz pur e alcohol) on occasion [facility] Utilities Answer Date Recorded In the [...] any clubs o r organizations such as methodist groups, unions, fraternal or athletic groups, or [...] on file Legal Sex Female 10:06 AM WORKFORCE SPECIALIST Gender Identity Female 06/17/2024 7:02 AM [...] Description 02/21/2025 1:00 PM CDT Hospital Encounter [facility] [address] [address] Marv Earl MD [address] [place] [address] 02/21/2025 1:00 PM CDT - 02/21/2025 1:30 PM CDT Surgery [facility] [address] [facility] [address] [place] [address] Marv Earl MD [address] [place] [address] EGD/EndoFLIP/YI Scheduled Procedures Name Priority Associated Diagnoses [...] mammogram, encounter for COLONOSCOPY 10/29/2022 7:59 AM WORKFORCE SPECIALIST from Last 3 Months or Most [...] nal Result * COLONOSCOPY (10/29/2022 7:59 AM WORKFORCE SPECIALIST) Anatomical Region Laterality Modality Other Narrative Procedure Note Germania Sorto MD - 10/29/2022 7:[address] [facility] Patient Name: Sarahy Gill Procedure Date: 10/29/2022 7:59 AM Date of : 1970 Admit Type: Outpatient Age: 52 Gender: Female Attending MD: Germania Sorto M.D. Room: [facility] 1 Note Status: Finalized Patient [...] under direct vision. The Pediatric Colonoscope PCF-H190L [id number] was introducedthrough the anus and advanced to [...] 7:59 AM Procedure Code(s): --- Professional --- 37634, Colonoscopy, flexible; with biopsy, single or multiple Diagnosis Code(s): --- Professional --- K64.8, Other hemorrhoids D12.3, Benign neoplasm of transverse colon (hepatic flexure orsplenic flexure) K52.9, Noninfective gastroenteritis and colitis, unspecified CPT copyright 2020 [employer]. All rights reserved. The codes documented in this report are preliminary and upon contracts intern reviewmay be revised to meet current compliance requirements. Recognized by the [employer] for promoting quality in endoscopy Germania Sorto MD ENDOSCOPY PROCEDURES Final Result from Last 3 Months or Most Recently Relevant to Health Maintenance Insurance IDPA [facility] MEDICARE ADVANTAGE JOANAJOHN [place] [id number] MEDICARE ADVANTAGE JOANAJOHN OLMSTEADALEX Advance Directives For more information, please contact: [phone] Documents on File Type Date Recorded Patient Plant Hr Manager Expl anation ADVANCE DIRECTIVE 08/14/2021 9:12 AM Raz r of Upset Operator-Medical * Full Code (Latest Code Status on [...] 8:07 AM 10/29/2022 2:30 PM Care Teams Puttying And Calking Supervisor Relationship Specialty Start Date End Date Parmjit Dai MD PCP - General 12/31/20 Mere Landa NP Nurse Practitioner 02/07/20 Tico Burton MD Surgeon General Surgery 08/09/21 Ivan Liang MD Consulting Physician General Surgery 09/09/23
== END 2025-01-20 13:02 | disposition home or self-care (01) ==
PROVIDERS: PCP Internal Medicine; Visit Provider Nurse Practitioner Obstetrics & Gynecology
DX: Z12.31 Encounter for screening mammogram for malignant neoplasm of breast (principal); Z78.0 Asymptomatic menopausal state; M85.89 Other specified disorders of bone density and structure, multiple sites
CPT/HCPCS: 77063; 77067; 77080

== ENCOUNTER 2025-02-01 22:07 | Emergency (ER) | payer OTHER, MEDICARE, SELFPAY ==
--- NOTE | ~2025-02-01 | CT_ITS ---
CT abdomen pelvis w con Ordering provider: Frandy Orellana MD History: 54 years Female with . abd pain, blood in stool . Comparison: January 13, 2025 Technique: CT abdomen and pelvis with IV and without oral contrast. Automated exposure control and it erative reconstruction technique were employed. The dose-length product was 373.54 mGy-cm. 100 mL Omn ipaque 350 was given IV. Findings: VISUALIZED LOWER CHEST: Normal. UPPER ABDOMINAL ORGANS: Liver: Slightly dilated intrahepatic bile ducts. CBD measures 8 mm. Gallbladder: Status post cholecystectomy. Spleen: Normal. Stomach/duodenum: Normal. Pancreas: Slightly dilated pancreatic duct. Possibility of pancreatic divisum is not excluded. MRI ev aluation is advised. Adrenals: Normal. Kidneys: Small cyst in the right kidney upper pole. PELVIC ORGANS: The bladder is underfilled with thickened wall. Evaluation for cystitis advised. BOWEL AND MESENTERY: Colon: No evidence of diverticulitis. Slightly thickened wall of the sigmoid, descending and transver se colon is seen which may indicate colitis. Follow-up advised. Status post appendectomy. Small Bowel: Normal. No obstruction. Peritoneum/mesentery: No free air or free fluid. No mesenteric lymphadenopathy. RETROPERITONEUM: Mild atheromatous disease of the abdominal aorta. No retroperitoneal lymphadenopat hy. MUSCULOSKELETAL: Superficial soft tissues: The superficial soft tissues are normal. Bones: Age appropriate degenerative changes of the spine. Mild dextroscoliosis. IMPRESSION: 1. No evidence of appendicitis, diverticulitis or intestinal obstruction. 2. Slightly dilated intrahepatic bile ducts. 3. Dilated pancreatic duct with highly suggestive pancreatic divisum. 4. Slightly thickened wall of the colon which may indicate colitis. Follow-up advised. Reviewed, dictated and finalized at location A.
--- OUTSIDE RECORDS SUMMARY | 2025-02-01 22:10 | XMS_ITS | Clinical Summary ---
Author Organization [facility] [employer] Address [address] [place] [address] Care Team Providers Care Wire Bender Name Role Phone Mandeep Pennington DO Primary Care Provider [phone] Source Comments [facility] [employer],non-owned Affiliates and Associated Physician Practices is amultiple site organization consisting of ambulatory clinics and hospital sitesin [place], [place], [place]. This disclosure is being madepursuant to the Care Everywhere program and may not contain all information available regarding this patient. Last updated 18.[facility] [employer] Allergies Active Allergy Reactions Criticality Noted Date [...] numbness and tingling type sensations and shooting pains. Patients often describe fatigue and may awaken [...] 9:18 AM CDT Height 162.6 cm (5' 4) 06/30/2024 9:18 AM CDT Body Mass Index [...] - 06/07/2024 7:12 AM CDT Performed at: [address] [place] [id number] Watch Train Assembler: Edmundo Dias PhD, Phone: [phone] Rolando Castro DO LAB - CHEMISTRY ORDERABLES Final Result Performing Organization Address City/State/[facility] Co de Phone Number [facility] INSURANCE BILL [address] [place] [address] from Last 3 Months or Most Recently Relevant to Health Maintenance Insurance [employer] [facility] MANAGED MEDICARE ADV Care Teams Wire Bender Relationship Specialty Start Date End Date Mandeep Pennington DO [address] [place] [id number] PCP - General Internal Medicine 06/30/24
--- OUTSIDE RECORDS SUMMARY | 2025-02-01 22:10 | XMS_ITS | Referral Summary ---
Author Organization [facility] Care Team Providers Care Adding Machine Servicer Name Role Phone Mere Landa NP Unavailable [phone] Parmjit Dai MD Primary Care Provider [phone] Tico Burton MD Unavailable [phone] Ivan Liang MD Unavailable Encounters Date Type Department Care Team Description 01/19/2025 Telephone [facility] [address] [place] [address] Magda Brooks RN 01/19/2025 Telephone [facility] [address] [place] [address] Abena Lam, KIET GI Preprocedure; Scheduling Testing/Treatment; AC hold recs 01/16/2025 Telephone [facility] [address] [place] [address] Abena Lam, KIET Scheduling Testing/Treatment; Unsuccessful Phone Call 2 01/16/2025 Telephone [facility] [address] [place] [address] Katharine Bee RN 01/16/2025 Telephone [facility] [address] [facility] 12th [place] [address] [place] [phone] Katharine Carty 01/12/2025 Telephone [facility] [address] [place] [address] Abena Lam, KIET Scheduling Testing/Treatment 01/12/2025 Orders Only [facility] Minimally Invasive Surgery [address] [place] [address], [address] [place] [phone] Say Davila MD PhD Gastroesophageal reflux disease, unspecified whether esophagitis present (Primary Dx) 01/09/2025 Telephone [facility] [address] [place] [address] [place] [address] Marah Byrnes RMA PRE PROCEDURE ASSESSMENT 01/09/2025 Orders Only [facility] [address] [place] [address] [address] [place] [phone] Forest Catherine MD Esophageal dysphagia (Primary Dx); Gastroesophageal reflux disease with esophagitis without hemorrhage 01/06/2025 Orders Only [facility]) [facility] [address] [place] [address], [address] [place] [phone] aSy Davila MD PhD Dysphagia, unspecified type (Primary Dx) 01/03/2025 Orders Only [facility]) [facility] Surgery [address] [place] [address], [place] [address] Say Davila MD PhD Gastroesophageal reflux disease, unspecified whether esophagitis present (Primary Dx) 11/25/[address] [facility] [address] [place] [address] Julia Wyman, KIET 11/11/2024 Telephone [facility] [address] [place] [address] [place] [address] Carloz Katharine Refill request from Last 3 Months Allergies [...] 09/03/2023 Assessment & Plan (09/17/2023 9:54 AM PIE BAKER): Diet as tolerates. Continue bowel regimen if needed to avoid straining. No submerging incision for 1 more week. Light duty for another 2 weeks. Patient will call us back with any further questions or concerns. Assessment & Plan (09/03/2023 8:54 AM PIE BAKER): I will discuss her case with GI. [...] (09/10/2022): Added automatically from request for surgery [id number] Cyclical vomiting 09/05/2022 Gastritis 09/05/2022 Gastroesophageal reflux [...] 08/13/2021 Assessment & Plan (08/13/2021 9:33 AM PIE BAKER): Pt complains of pain with urination. Pt also complains of suprapubic pain. Plan - Urine analysis TIA (transient ischemic attack) 08/11/2021 Assessment & Plan (08/13/2021 9:29 AM PIE BAKER): Sarahy Gill 51-year-old female presenting with left [...] mg Assessment & Plan (08/12/2021 6:00 PM PIE BAKER): Sarahy Gill 51-year-old female presenting with left [...] recommendations Assessment & Plan (08/09/2021 6:14 PM PIE BAKER): Patient has a history of IBS with [...] agitation/anxiety Assessment & Plan (08/13/2021 9:30 AM PIE BAKER): Currently mood at baseline. Continue home med Celexa Assessment & Plan (08/12/2021 5:53 PM PIE BAKER): Currently mood at baseline. Continue home med Celexa Assessment & Plan (08/09/2021 6:30 PM PIE BAKER): Per patient has a history of bipolar depressive type Stable at this time Not currently on any medication Patient denies any suicidal homicidal ideation Intussusception intestine 08/09/2021 Assessment & Plan (08/09/2021 6:36 PM PIE BAKER): 08/08/2021 CT abdomen/pelvis with contrast: Possible cystitis, [...] q.day Assessment & Plan (08/13/2021 9:29 AM PIE BAKER): Blood pressure has been under control Metoprolol restarted Assessment & Plan (08/12/2021 5:49 PM PIE BAKER): Blood pressure has been under control Metoprolol has been on hold-to allow for permissive hypertension for the next 24 hours, will restart tomorrow Assessment & Plan (08/09/2021 6:31 PM PIE BAKER): Have reviewed 24 hour blood pressures and [...] consult: Assessment & Plan (08/09/2021 6:12 PM PIE BAKER): CT abdomen pelvis with contrast at [place] yesterday showed intussusception CT abdomen pelvis with [...] monitor Assessment & Plan (08/13/2021 9:29 AM PIE BAKER): Currently in sinus rhythm. Eliquis on hold will resume on August 15. Continue with flecainide Metoprolol restarted Assessment & Plan (08/12/2021 5:54 PM PIE BAKER): Currently in sinus rhythm. Eliquis on hold will resume on August 15. Continue with flecainide Metoprolol on hold will resume tomorrow Assessment & Plan (08/09/2021 6:18 PM PIE BAKER): No acute events since admission Patient on Eliquis Metoprolol for rate control with hold parameters Will continue to monitor Essential tremor 10/12/2018 Assessment & Plan (08/13/2021 9:30 AM PIE BAKER): B/l hand with tremor - no changes in strength Assessment & Plan (08/09/2021 6:30 PM PIE BAKER): Patient reports after waking up had increase [...] consult Assessment & Plan (08/13/2021 9:30 AM PIE BAKER): Currently in no acute exacerbation. -continue Bentyl Assessment & Plan (08/12/2021 5:47 PM PIE BAKER): Currently in no acute exacerbation. -continue Bentyl Assessment & Plan (08/09/2021 6:15 PM PIE BAKER): Patient on Bentyl Monitoring electrolytes Assessment & [...] ibs-d. Will get all the records from [place] and then regroup to discuss possible treatment options. Orthostatic dizziness 09/16/2016 Palpitations 07/29/2016 Migraine headache 07/29/2016 Assessment & Plan (12/18/2021 4:59 PM CDT): Started home Topamax Assessment & Plan (08/09/2021 6:17 PM PIE BAKER): Patient not complaining of headache or migraines [...] 0.6 oz pur e alcohol) on occasion [facility] Utilities Answer Date Recorded In the [...] often do you attend chur ch or sabianist services? Never 09/09/2023 Do you belong to [...] on file Legal Sex Female 10:06 AM PIE BAKER Gender Identity Female 06/17/2024 7:02 AM CDT [...] 10:15 AM CDT Height 161.3 cm (5' 3.5) 01/19/2025 10:15 AM CD T Body Mass Index 25.11 01/19/2025 10:15 AM CDT Plan of Treatment Upcoming Encounters Date Type Department Care Team (Latest Contact Info) Description 02/21/2025 1:00 PM CDT Hospital Encounter [facility] [address] [place] [address] Marv Earl MD [address] [place] [address] 02/21/2025 1:00 PM CDT - 02/21/2025 1:30 PM CDT Surgery [facility] [address] [place] [address] Marv Earl MD [address] [place] [address] EGD/EndoFLIP/YI Scheduled Procedures Name Priority Associated Diagnoses [...] mammogram, encounter for COLONOSCOPY 10/29/2022 7:59 AM PIE BAKER from Last 3 Months or Most Recently [...] nal Result * COLONOSCOPY (10/29/2022 7:59 AM PIE BAKER) Anatomical Region Laterality Modality Other Narrative Procedure Note Germania Sorto MD - 10/29/2022 7:59 AM CST [facility] Patient Name: Sarahy Gill Procedure Date: 10/29/2022 7:59 AM Date of : 1970 Admit Type: Outpatient Age: 52 Gender: Female Attending MD: Germania Sorto M.D. [facility] Note Status: Finalized [...] under direct vision. The Pediatric Colonoscope PCF-H190L [id number] was introducedthrough the anus and advanced to [...] 7:59 AM Procedure Code(s): --- Professional --- 04158, Colonoscopy, flexible; with biopsy, single or multiple Diagnosis Code(s): --- Professional --- K64.8, Other hemorrhoids D12.3, Benign neoplasm of transverse colon (hepatic flexure orsplenic flexure) K52.9, Noninfective gastroenteritis and colitis, unspecified CPT copyright 2020 [employer]. All rights reserved. The codes documented in this report are preliminary and upon elevator service mechanic reviewmay be revised to meet current compliance requirements. 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
--- OUTSIDE RECORDS SUMMARY | 2025-02-01 22:10 | XMS_ITS | Encounter Summary ---
Author Organization [facility] Address [address] [place] [address] Phone Care Team Providers Care Metal Tile Setter Name Role Phone Mere Landa NP Unavailable [phone] Parmjit Dai MD Primary Care Provider [phone] Tico Burton MD Unavailable [phone] Ivan Liang MD Unavailable Reason for Visit * Reason Onset Date Comments GI Preprocedure 01/19/2025 Scheduling Testing/Treatment 01/19/2025 AC hold recs 01/19/2025 Encounter Details Date Type Department Care Team (Late st Contact Info) Description 01/19/2025 Telephone [facility] [address] [place] [address] [address] [place] [address] Abena Lam RN GI Preprocedure; Scheduling Testing/Treatment; AC hold recs Social History Tobacco Use Types Packs/Day Years Used Date Smoking Tobacco: Former Cigarettes 1 - 1999 Vaping Smokeless Tobacco: Never Comments:off and on Alcohol Use Standard Drinks/Week Comments No 0 (1 standard drink = 0.6 oz pur e alcohol) on occasion [facility] Utilities Answer Date Recorded In the past 12 months has [employer] gas, oil, or water company threatened to [...] often do you attend chur ch or alevism services? Never 09/09/2023 Do you belong to any clubs o r organizations such as jew groups, unions, fraternal or athletic groups, or [...] on file Legal Sex Female 10:06 AM [employer] Gender Identity Female 06/17/2024 7:02 AM CDT Sexual Orientation Not on file documented as of this encounter Miscellaneous Notes * Telephone Encounter - Abena Lam RN - 02/01/2025 4:41 PM CDT Images from the original note were not included. Attempted to reach pt to discuss AC hold recs per below. No answer, left message. * Telephone Encounter - Abena Lam RN [...] ago ENDOCRINE: None PRIOR PROCEDURE ISSUES: None FLOWER POT PRESS OPERATOR/: NA IMPLANTS.: None PSYCH/Behavioral Hx: Yes [...] and to contact their ordering MD or Highway Worker about bridging medication for procedure. No [] Yes - Letter Sent to Ordering Physician/Highway Worker Date sent: Hold instructions: GLP Weight Loss Medications N/A Educated Patient on the need to hold Medication, and to contact their ordering MD or Highway Worker about bridging medication for procedure. Y/N: No/NA None [] Yes - Letter Sent to Ordering Physician/Highway Worker Hold older Instructions: BLOOD THINNERS/ANTICOAG/ANTIPLATELET (BESIDES ASA) Medication: Apixaban (Eliquis) Physician contacted for hold order/date sent: Tarik Michael MD 01/19/25 Hold order Method sent: Epic Fax Date hold received: Hold instructions: CONTINUE ASPIRIN INFORMATION REQUESTED []Imaging: []Medical Progress Note/H&P []Medication list []Other: PATIENT OPTIMIZATION []Physician reviewing escalation: []CPAP: Date scheduled: Outcome : [] Location limitations: Scheduling Scheduling location limitations: Douper needed [x] NA Language: POA [] NA Name: Arnulfo Gill [phone] Required extended education:no SPECIAL PROCEDURE INSTRUCTIONS Scheduling Notes Procedure information Date of procedure: 02/21/25 Time of procedure: 1300 Arrival time: 1100 for MANUEL teaching Location: [facility] Proceduralist: Rengarajan Instructions Method of instructions: MyChart and Verbal [x]Confirmation of ride/stripper and taper [x]Post anesthesia restrictions given [x]NPO Instructions: [x]Diet [...] arrival for teaching, the EGD/Manuel at 1300? Magda Azar ----- Message ----- From: Maty Hammond RN Sent: 01/17/2025 4:02 PM CDT To: Maura Ray [facility]; Abena Verduzco# Subject: RE: EGD/Endolip/MANUEL Abena, Clarification [...] Sent: 01/12/2025 2:33 PM CDT To: Abena Lma RN; Monique Mora, KIET; # Subject: RE: EGD/Endolip/MANUEL I can only [...] CDT To: Abena Lam RN; Monique Mora, KIET; # Subject: EGD/Endolip/MANUEL Abena/Monique, This patient should be coming across one of your radars. Orders were placed today by Dr Davila's office for an EGD/Endoflip to be done at [facility] as well as a MANUEL pH [...] Description 02/21/2025 1:00 PM CDT Hospital Encounter [facility] [address] [address] Marv Earl MD [address] [address] 02/21/2025 1:00 PM CDT - 02/21/2025 1:30 PM CDT Surgery [facility] [address] [address] Marv Earl MD [address] [address] EGD/EndoFLIP/MANUEL Scheduled Procedures Name Priority Associated Diagnoses [...] 01/19/2025 documented in this encounter Care Teams Metal Tile Setter Relationship Specialty Start Date End Date Parmjit Dai MD PCP - General 12/31/20 Mere Landa NP Nurse Practitioner 02/07/20 Tico Burton MD Surgeon General Surgery 08/09/21 Ivan Liang MD Consulting Physician General Surgery 09/09/23 documented as of this encounter
--- OUTSIDE RECORDS SUMMARY | 2025-02-01 22:10 | XMS_ITS | Clinical Summary ---
Author Organization [facility] Care Team Providers Care Scalehouse Attendant Name Role Phone Mere Landa NP Unavailable [phone] Parmjit Dai MD Primary Care Provider [phone] Tico Burton MD Unavailable [phone] Ivan Liang MD Unavailable Allergies Active Allergy [...] 09/03/2023 Assessment & Plan (09/17/2023 9:54 AM PRODUCTION SAMPLER): Diet as tolerates. Continue bowel regimen if needed to avoid straining. No submerging incision for 1 more week. Light duty for another 2 weeks. Patient will call us back with any further questions or concerns. Assessment & Plan (09/03/2023 8:54 AM PRODUCTION SAMPLER): I will discuss her case with GI. [...] (09/10/2022): Added automatically from request for surgery [id number] Cyclical vomiting 09/05/2022 Gastritis 09/05/2022 Gastroesophageal reflux [...] 08/13/2021 Assessment & Plan (08/13/2021 9:33 AM PRODUCTION SAMPLER): Pt complains of pain with urination. Pt also complains of suprapubic pain. Plan - Urine analysis TIA (transient ischemic attack) 08/11/2021 Assessment & Plan (08/13/2021 9:29 AM PRODUCTION SAMPLER): Sarahy Gill 51-year-old female presenting with left [...] mg Assessment & Plan (08/12/2021 6:00 PM PRODUCTION SAMPLER): Sarahy Gill 51-year-old female presenting with left [...] recommendations Assessment & Plan (08/09/2021 6:14 PM PRODUCTION SAMPLER): Patient has a history of IBS with [...] agitation/anxiety Assessment & Plan (08/13/2021 9:30 AM PRODUCTION SAMPLER): Currently mood at baseline. Continue home med Celexa Assessment & Plan (08/12/2021 5:53 PM PRODUCTION SAMPLER): Currently mood at baseline. Continue home med Celexa Assessment & Plan (08/09/2021 6:30 PM PRODUCTION SAMPLER): Per patient has a history of bipolar depressive type Stable at this time Not currently on any medication Patient denies any suicidal homicidal ideation Intussusception intestine 08/09/2021 Assessment & Plan (08/09/2021 6:36 PM PRODUCTION SAMPLER): 08/08/2021 CT abdomen/pelvis with contrast: Possible cystitis, [...] q.day Assessment & Plan (08/13/2021 9:29 AM PRODUCTION SAMPLER): Blood pressure has been under control Metoprolol restarted Assessment & Plan (08/12/2021 5:49 PM PRODUCTION SAMPLER): Blood pressure has been under control Metoprolol has been on hold-to allow for permissive hypertension for the next 24 hours, will restart tomorrow Assessment & Plan (08/09/2021 6:31 PM PRODUCTION SAMPLER): Have reviewed 24 hour blood pressures and [...] consult: Assessment & Plan (08/09/2021 6:12 PM PRODUCTION SAMPLER): CT abdomen pelvis with contrast at [place] yesterday showed intussusception CT abdomen pelvis with contrast at [facility]: Showed resolution of intussusception Patient has [...] monitor Assessment & Plan (08/13/2021 9:29 AM PRODUCTION SAMPLER): Currently in sinus rhythm. Eliquis on hold will resume on August 15. Continue with flecainide Metoprolol restarted Assessment & Plan (08/12/2021 5:54 PM PRODUCTION SAMPLER): Currently in sinus rhythm. Eliquis on hold will resume on August 15. Continue with flecainide Metoprolol on hold will resume tomorrow Assessment & Plan (08/09/2021 6:18 PM PRODUCTION SAMPLER): No acute events since admission Patient on Eliquis Metoprolol for rate control with hold parameters Will continue to monitor Essential tremor 10/12/2018 Assessment & Plan (08/13/2021 9:30 AM PRODUCTION SAMPLER): B/l hand with tremor - no changes in strength Assessment & Plan (08/09/2021 6:30 PM PRODUCTION SAMPLER): Patient reports after waking up had increase [...] consult Assessment & Plan (08/13/2021 9:30 AM PRODUCTION SAMPLER): Currently in no acute exacerbation. -continue Bentyl Assessment & Plan (08/12/2021 5:47 PM PRODUCTION SAMPLER): Currently in no acute exacerbation. -continue Bentyl Assessment & Plan (08/09/2021 6:15 PM PRODUCTION SAMPLER): Patient on Bentyl Monitoring electrolytes Assessment & [...] ibs-d. Will get all the records from [place] and then regroup to discuss possible treatment options. Orthostatic dizziness 09/16/2016 Palpitations 07/29/2016 Migraine headache 07/29/2016 Assessment & Plan (12/18/2021 4:59 PM CDT): Started home Topamax Assessment & Plan (08/09/2021 6:17 PM PRODUCTION SAMPLER): Patient not complaining of headache or migraines at this time Sumatriptan on hold Hypokalemia Encounters Date Type Department Care Team Description 01/19/2025 Telephone [facility] [address] [place] [address] [address] [place] [address] Magda Brooks RN 01/19/2025 Telephone [facility] [address] [place] [address] Medical [address] [place] [address] Abena Lam RN GI Preprocedure; Scheduling Testing/Treatment; AC hold recs 01/16/2025 Telephone [facility] [address] [place] [address] Medical [address] [place] [address] Abena Lam RN Scheduling Testing/Treatment; Unsuccessful Phone Call 2 01/16/2025 Telephone [facility] Specialty Services [address] [place] [address] Katharine Bee RN 01/16/2025 Telephone [facility] Advanced Medicine 12th [place] [address] [place] [address] Katharine Carty 01/12/2025 Telephone [facility] [address] [place] [address] Medical Office [address] [place] [address] Abena Lam RN Scheduling Testing/Treatment 01/12/2025 Orders Only [facility]) [facility] [address] [place] [address] Floor, [place] [phone] Say Davila MD PhD Gastroesophageal reflux disease, unspecified whether esophagitis present (Primary Dx) 01/09/2025 Telephone [facility] [address] [place] [address] [place] [address] [place] [phone] Marah Byrnes RMA PRE PROCEDURE ASSESSMENT 01/09/2025 Orders Only [facility] [address] [place] [address] [place] [phone] Forest Catherine MD Esophageal dysphagia (Primary Dx); Gastroesophageal reflux disease with esophagitis without hemorrhage 01/06/2025 Orders Only [facility]) [facility] [address] [place] [address], [place] [phone] Say Davila MD PhD Dysphagia, unspecified type (Primary Dx) 01/03/2025 Orders Only [facility]) [facility] [address] [place] [address], [place] [phone] Say Davila MD PhD Gastroesophageal reflux disease, unspecified whether esophagitis present (Primary Dx) 11/25/2024 Telephone [facility] [place] [phone] Julia Wyman, KIET 11/11/2024 Telephone [facility] [address] [place] [address] [place] [phone] Katharine Carty Refill request from Last 3 [...] 0.6 oz pur e alcohol) on occasion [employer] Answer Date Recorded In the past 12 months has [employer], gas, oil, or water [employer] threatened to shut off services in your [...] often do you attend chur ch or restorationism services? Never 09/09/2023 Do you belong to any clubs o r organizations such as lutheran groups, unions, fraternal or athletic groups, or [...] on file Legal Sex Female 10:06 AM PRODUCTION SAMPLER Gender Identity Female 06/17/2024 7:02 AM CDT [...] 02/21/2025 1:00 PM CDT Hospital Encounter [facility] [place] [address] [address] Marv Earl MD [address] [address] 02/21/2025 1:00 PM CDT - 02/21/2025 1:30 PM CDT Surgery [facility] [place] [address] [address] Marv Earl MD [address] [address] EGD/EndoFLIP/YI Scheduled Procedures Name Priority Associated Diagnoses Date/Ti al ESOPHAGOGASTRODUODENOSCOPY Esophageal dysphagia Gastroesophageal reflux disease with [...] mammogram, encounter for COLONOSCOPY 10/29/2022 7:59 AM PRODUCTION SAMPLER from Last 3 Months or Most Recently [...] nal Result * COLONOSCOPY (10/29/2022 7:59 AM PRODUCTION SAMPLER) Anatomical Region Laterality Modality Other Narrative Procedure Note Germania Sorto MD - 10/29/2022 7:59 AM CST [facility] Patient Name: Sarahy Gill Procedure Date: 10/29/2022 7:59 AM Date of : 1970 Admit Type: Outpatient Age: 52 Gender: Female Attending MD: Germania Sorto M.D. Room: [facility] ENDOSCOPY ROOM 1 Note Status: Finalized Patient [...] under direct vision. The Pediatric Colonoscope PCF-H190L [id number] was introducedthrough the anus and advanced to [...] 7:59 AM Procedure Code(s): --- Professional --- 00563, Colonoscopy, flexible; with biopsy, single or multiple Diagnosis Code(s): --- Professional --- K64.8, Other hemorrhoids D12.3, Benign neoplasm of transverse colon (hepatic flexure orsplenic flexure) K52.9, Noninfective gastroenteritis and colitis, unspecified CPT copyright 2020 [employer]. All rights reserved. The codes documented in this report are preliminary and upon remote inpatient coder reviewmay be revised to meet current compliance requirements. 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
--- OUTSIDE RECORDS SUMMARY | 2025-02-01 22:10 | XMS_ITS | Clinical Summary ---
Author Organization [facility] Address [address] [place] [address] Phone Care Team Providers Care Occupational Therapy Professor Name Role Phone Parmjit Dai MD Primary Care Provider [phone] Jazmine Kulkarni MD Unavailable [phone] Mir Spencer MD Unavailable Allergies Active Allergy [...] Comments Blood Pressure 96/66 10/29/2023 8:05 AM NEPHROLOGY SOCIAL WORKER Pulse 52 10/29/2023 8:05 AM NEPHROLOGY SOCIAL WORKER Temperature 36.9 C (98.4 F) 10/16/2023 8:53 AM NEPHROLOGY SOCIAL WORKER Respiratory Rate 20 10/29/2023 8:05 AM NEPHROLOGY SOCIAL WORKER Oxygen Saturation 100% 10/16/2023 8:53 AM NEPHROLOGY SOCIAL WORKER Inhaled Oxygen Concentration - - Weight 56.7 kg (125 lb) 10/29/2023 8:05 AM NEPHROLOGY SOCIAL WORKER Height 162.6 cm (5' 4) 10/29/2023 8:05 AM NEPHROLOGY SOCIAL WORKER Body Mass Index 21.46 10/29/2023 8:05 AM NEPHROLOGY SOCIAL WORKER Plan of Treatment Health Maintenance Due Date Last Done Comments Hepatitis C Virus (HCV) Screening 1970 Hepatitis B Immunization (1 of 3 - 19+ 3-dose series) 1987 Pap Smear 1989 Cervical Cancer Screening (CCS) 1998 HPV/Cotest 1998 Cologuard 2018 Pneumococcal Immunization (50+ years) (1 of 1 - PCV) 2018 Zoster Immunization (1 of 2) 2018 SARS-COV-2 Immunization (3 - season) 2024 02/20/2021, 01/23/2021 Immunochemical Fecal Occult Blood 06/10/2024 06/10/2023 Mammogram 11/10/2024 11/11/2023, 05/20/2022 Influenza Immunization (Season Ended) 2025 07/14/2023, 07/01/2022, 06/18/2022, Additional history exists Td Immunization Every 10 Years (Adults With 1 Tdap) 07/31/2027 07/31/2017 Colonoscopy 10/29/2032 10/29/2022 Colorectal Cancer Screening 10/29/2032 Respiratory Syncytial Virus (RSV) Immunization (Adult) (1 - 1-dose 75+ series) 2043 10/29/2022 DTaP/Tdap/Td Immunization Discontinued 07/31/2017 Human Papillomavirus (HPV) Immunization Aged Out No longer eligible based on patient's age to complete this topic Meningococcal Immunization (ACWY) Aged Out No longer eligible based on patient's age to complete this topic Rotavirus Immunization Aged Out No lo nger eligible based on patient's age to complete this topic Insurance MEDICAID [place] MEDICARE C [facility] CIGNA Care Teams Occupational Therapy Professor Relationship Specialty Start Date End Date Parmjit Dai MD [address] [place] [address] [address] [place] [address] PCP - General Family Medicine 05/21/22 Jazmine Kulkarni MD [address] [place] [address] [address] [place] [address] Family Medicine 05/21/22 Mir Spencer MD [address] [place] [address] Consulting Physician Urology 10/29/23
--- OUTSIDE RECORDS SUMMARY | 2025-02-01 22:10 | XMS_ITS | Encounter Summary ---
Author Organization [facility] Address [address] [place] [address] Care Team Providers Care Front End Architect Name Role Phone Mere Landa NP Unavailable [phone] Parmjit Dai MD Primary Care Provider [phone] Tico Burton MD Unavailable [phone] Ivan Liang MD Unavailable Reason for Visit * Reason Onset Date Comments Scheduling Appointments 06/19/2021 confirmi ng mammogram appt Encounter Details Date Type Department Care Team (Late st Contact Info) Description 06/19/2021 Telephone [facility] [address] [place] [address] Cheryl Trejo RT Scheduling Appointments (confirming mammogram [...] file Legal Sex Female 10:06 AM MEDICAL DONATION PROFESSIONAL Gender Identity Female 06/17/2024 7:02 AM CDT Sexual Orientation Not on file documented as of this encounter Plan of Treatment Upcoming Encounters Date Type Department Care Team (Latest Contact Info) Description 02/21/2025 1:00 PM CDT Hospital Encounter [facility] [place] [address] [place] [address] Marv Earl MD [address] [place] [address] 02/21/2025 1:00 PM CDT - 02/21/2025 1:30 PM CDT Surgery [facility] [place] [address] [place] [address] Marv Earl MD [address] [place] [address] EGD/EndoFLIP/YI Scheduled Procedures Name Priority Associated Diagnoses Date/Ti mt ESOPHAGOGASTRODUODENOSCOPY Esophageal dysphagia Gastroesophageal reflux disease with [...] COVID: Suspected 07/06/2022 07/06/2022 07/06/2022 3:52 AM MEDICAL DONATION PROFESSIONAL COVID: Suspected 08/18/2022 08/18/2022 08/18/2022 12:59 AM MEDICAL DONATION PROFESSIONAL COVID: Suspected 09/19/2023 09/19/2023 09/19/2023 11:01 AM MEDICAL DONATION PROFESSIONAL C. difficile suspected 07/21/2024 07/21/202407/22 3:05 AM MEDICAL DONATION PROFESSIONAL documented as of this encounter Care Teams Front End Architect Relationship Specialty Start Date End Date Parmjit Dai MD PCP - General 12/31/20 Mere Landa NP Nurse Practitioner 02/07/20 Tico Burton MD Surgeon General Surgery 08/09/21 Ivan Liang MD Consulting Physician General Surgery 09/09/23 documented as of this encounter
[2025-02-01 22:16] VITALS: BP 117/92; O2SAT 97
--- NOTE | 2025-02-01 22:17 | ECG_ITS ---
Test Date: 2025-02-01 22:21:03 Measurements Intervals [place] Rate: 74 P: 54 MN: 169 QRS: 18 QRSD: 76 T: 32 QT: 409 QTc: 456 Interpretive Statements SINUS RHYTHM BASELINE ARTIFACT- I, II, III, AVR, AVL, AVF, V5-V6 NORMAL ECG Compared to ECG 01/13/2025 05:26:01 HEART RATE HAS INCREASED Electronically Signed On 02-02-2025 06:09:34 CDT by Cabrera Moya D.O.
--- NOTE | 2025-02-01 22:20 | ED_ITS ---
HPI - Nausea/Vomiting/Diarrhea General Chief complaint: Nausea/Vomiting/Diarrhea Stated complaint: n/v/diarrhea, blood in stool Time Seen by Provider: 02/01/25 22:10 Source: police History of Present Illness HPI Narrative: 54-year-old female with a complex past medical history including cyclic vomiting syndrome, GERD, IBS, atrial fibrillation on Xarelto, past surgical history including appendectomy and Gary fundoplication for hiatal hernia. Patient presents to the emergency department chief complaint of nauseousness, vomiting, cramping abdominal pain and some blood streaks in her diarrhea recently. Symptoms started yesterday. States that this feels like a similar episode to her previous colitis. She has had previous admissions for colitis and even ICU stay secondary to septic shock in the past. Presently she is complaining of cramping abdominal pain as well as some nauseousness without vomiting. She also had several episodes of diarrhea today and has been going to the bathroom frequently. She states that the last few time she has had some blood droplets mixed in and she states that she has been wiping herself raw with toilet paper from how often she goes to the bathroom. She follows up regularly with Gastroenterology on outpatient basis with the next appointment in March. Related Data Home Medications ?Medication ?Instructions ?Recorded ?Confirmed ?Last Taken ?Type aluminum-mag hydroxide-simethicone 10 ml PO QID PRN Acid Reflux 05/28/20 01/18/25 07/23/24 History 400 mg-400 mg-40 mg/5 mL oral susp (Mylanta Maximum Strength) simethicone 125 mg chewable tablet 125 mg PO QID PRN Abdominal 05/28/20 01/18/25 04/24/21 21:00 History (Gas-X Extra Strength) Discomfort apixaban 5 mg tablet (Eliquis) 5 mg PO BID 10/23/23 01/18/25 07/30/24 History famotidine 20 mg tablet 20 mg PO DAILY PRN Acid Reflux 10/23/23 01/18/25 07/30/24 History metoprolol succinate 25 mg 25 mg PO DAILY 10/23/23 01/18/25 07/30/24 History tablet,extended release 24 hr flecainide 100 mg tablet 100 mg PO Q12H 10/29/23 01/18/25 07/30/24 History pantoprazole 40 mg tablet,delayed 40 mg PO BID 01/04/24 01/18/25 07/30/24 History release buspirone 10 mg tablet 10 mg PO BID 07/07/24 01/18/25 07/30/24 History Allergies Allergy/AdvReac Type Severity Reaction Status Date / Time prochlorperazine AdvReac Severe Confusion Verified 01/18/25 14:08 metoclopramide (From Reglan) AdvReac Intermediate anxiety Verified 01/18/25 14:08 azithromycin AdvReac Unknown STOMACH Verified 01/18/25 14:08 UPSET promethazine (From Phenergan) AdvReac Jittery Verified 01/18/25 14:08 Review of Systems 2 Review of Systems: As reviewed above in HPI [facility] Past Medical History Medical History Foot pain, right Achilles tendon contracture, right Chondromalacia of right knee Anemia History of TIA (transient ischemic attack) Irritable bowel syndrome with constipation History of hyperlipidemia History of atrial fibrillation History of gastroesophageal reflux (GERD) Adenomatous colon polyp Atrial fibrillation Arthritis GERD (gastroesophageal reflux disease) Celiac disease Diverticulosis Anxiety and depression Neuropathy Migraine headache Surgical History Surgical History History of endometrial ablation Hx of hernia repair Hx of laparoscopy Hx of dilation and curettage History of colonoscopy with polypectomy (03/2021) And repeat colonoscopy 2022 Status post lateral meniscectomy of right knee (07/2024) Hx of emergency section History of appendectomy History of delivery History of tubal ligation History of Gary fundoplication History of cholecystectomy Family History Family History Mother Family history of elevated blood lipids Family history of arthritis Sibling Family history of arthritis Grandparent Cerebrovascular accident Family history of cardiovascular disease Hypertension Diabetes mellitus Other Heart disease Acute myocardial infarction Father Alcoholism Mother Alcoholism Depression Anxiety Grandparent Throat cancer Cerebrovascular accident Heart problem Social History Social History Social History: She lives at home with her of 6 years. This is her 3rd marriage. She had 6 children. One son and 5 daughters. She smoked half pack of cigarettes per day since she was 14 years old but switched to vaping nicotine several years ago. She rarely drinks alcohol and only minute amounts. She uses marijuana daily. Code status: Full code (she would not want to be on the ventilator long-term or if she had no quality of life ) Surrogate decision maker: Smoking packs per day: 0.5 Smoking cigarettes per day: 10.0 Years smoked: 15 Smoking pack-years: 7.50 Smoking status: Current every day smoker Tobacco type: e-cigarettes/vaping Second hand tobacco smoke exposure: No Additional smoking assessment comments: Currently vapes. Alcohol intake: never Substance use: current Substance use type: marijuana Other substance usage details: Daily Last use: 07/30/24 Do You Feel Safe in your Home?: Yes Lack of Transportation: No Lack of Food: Never True Current Housing: Decline to Answer Concerned About Future Housing: Decline to Answer Difficulty Paying Gas/Electric Bills: Decline to Answer Difficulty Paying for Meds: Decline to Answer Currently Unemployed: Decline to Answer Education: Decline to Answer Difficulty w/ Childcare or Family Care: Decline to Answer Living arrangements: with family Occupation/Education: other Additional occupation/education comments: disabled Gender identity (if verbalized by the patient): Female Sexual Orientation (if Verbalized by the Patient): Straight or Heterosexual Spiritual care concerns: No Exam 2 Narrative: GENERAL: Appears older than stated age but not any acute distress, answering questions appropriately HEAD: [Normocephalic, atraumatic.] EYES: [PERRLA and EOMI.] ENT: Nares clear, no rhinorrhea or epistaxis. Mucous membranes moist. NECK: Supple. CHEST: [Clear to auscultation. No respiratory distress.] HEART: [Regular rate and rhythm]. No murmur heard. [Normal peripheral pulses.] ABDOMEN: [Soft, nondistended], mildly tender to palpation diffusely without any rigidity or guarding, no signs of peritonitis EXTREMITIES: Normal range of motion. [No edema.] SKIN: Warm, dry, no rash. NEURO: [No focal deficits]. Alert and oriented [x3.] PSYCH: [Normal mood and affect.] Course Vital Signs Vital signs: Vital Signs Blood Pressure 117/92 H 02/01/25 22:16 Pulse Oximetry 97 02/01/25 22:16 Pulse Rate 72 02/02/25 00:16 Respiratory Rate 17 02/02/25 00:16 Blood Pressure 105/70 02/02/25 00:16 Pulse Oximetry 98 02/02/25 00:16 MDM - Nausea/Vomiting/Diarrhea MDM Narrative Medical decision making narrative: 54-year-old female with a complex past medical history including cyclic vomiting syndrome, GERD, IBS, atrial fibrillation on Xarelto, past surgical history including appendectomy and Gary fundoplication for hiatal hernia. Patient presents to the emergency department chief complaint of nauseousness, vomiting, cramping abdominal pain and some blood streaks in her diarrhea recently. Patient has reassuring vital signs here without any tachycardia, fever, hypoxia blood pressure concerns. She has a soft nondistended but mildly tender abdomen. Considerations are broad but includes colitis, gastroenteritis, inflammatory bowel disease, diverticulitis, irritable bowel syndrome exacerbation, less likely ischemic in nature given normal vital signs and chronically anticoagulated with Eliquis for her AFib. Low suspicion cardiac or vascular pathology. Given her age and risk factors a broad workup was ordered this time including a CBC, CMP, lactic acid, lipase, urinalysis, EKG, troponin, CT abdomen pelvis with IV contrast. Patient provided fluids, Dilaudid for analgesia and haloperidol for antiemetics given her multiple allergies to other agents. Patient re-evaluated frequently. Patient CT scan was independently reviewed and also interpreted by Radiology. No evidence of appendicitis, diverticulitis or any intestinal obstruction. Slightly dilated intrahepatic ducts and a mildly dilated pancreatic duct suggestive of pancreatic divisum per radiology's interpretation. Patient has thickened colonic wall of the sigmoid descending and transverse colon suggestive of colitis. Patient's laboratory studies are reassuring with no significant leukocytosis or anemia. Normal platelet count. Normal electrolytes, normal renal function, normal glucose, unremarkable LFTs. Normal lactic acid. Negative lipase. EKG shows sinus rhythm. Vital signs are normal. No fever, hypoxia, tachycardia or blood pressure concerns. I discussed patient's CT findings with her including potential causes such as toxigenic, infectious, ischemic, inflammatory causes to her colitis. Patient has had some blood in her diarrhea and stool studies were ordered. She states she does not feel like she needs to go to the bathroom at this time. Discussed outpatient labs if unable to provide a sample here today. Her pain is markedly improved and she is no longer nauseous or vomiting. I discussed the treatment course with the patient including her significant risk factors and previous ICU admission for colitis resulting in septic shock. Patient is hemodynamically stable here today with normal vital signs and improvement in symptom control so I do not believe she requires hospitalization but would benefit from a short course of antibiotics in the event this is infectious in nature. Patient agreed and will be started on ciprofloxacin as she states she has not tolerated Flagyl before. Single agent ciprofloxacin IV was given here and prescription sent to her pharmacy. Patient was given strict return precautions. She has an upcoming GI appointment with her doctor at [facility] in March and I encouraged her to call them tomorrow morning to make them aware of the ER visit and plan of care and for having close outpatient follow-up arranged. Patient was comfortable with the plan and will return with any problems. Medical Records Attestation: I reviewed the patient's medical records. Lab Data Attestation: I reviewed the patient's lab results. 02/01/25 22:23 02/01/25 22:23 Labs: Lab Results 02/01/25 02/01/25 Range/Units 22:22 22:23 WBC 8.6 (4.5-10.0) K/mm3 RBC 4.07 L (4.2-5.4) M/mm3 Hgb 12.1 (12.0-15.0) g/dL Hct 37.6 (37.0-47.0) % MCV 92.4 (80-100) fl MCH 29.7 (26-34) pg MCHC 32.2 (32-36) g/dl RDW 13.5 (11.5-14.5) % Plt Count 321 (150-375) k/mm3 MPV 9.8 (7.4-10.4) fl Immature Gran % (Auto) 0.3 (0-0.5) % Neut % (Auto) 72.5 (45.5-73.1) % Lymph % (Auto) 16.8 L (18.3-44.2) % [place] % (Auto) 9.7 H (2.6-8.5) % Eos % (Auto) 0.5 (0-4.4) % Baso % (Auto) 0.2 (0.2-1.2) % Lymph # (Auto) 1.44 (0.9-3.2) K/mm3 [place] # (Auto) 0.8 H (0.1-0.6) K/mm3 Eos # (Auto) 0.0 (0-0.3) K/mm3 Baso # (Auto) 0.0 (0.0-0.1) K/mm3 Abs Immat Gran (auto) 0.03 (0.00-0.031) K/mm3 Absolute Neuts (auto) 6.2 (1.3-6.7) K/mm3 Absolute Nucleated RBC 0.000 (0.0-0.012) K/mm3 Nucleated RBC % 0.0 (0.0-0.2) % Sodium 139 (137-145) mmol/L Potassium 3.7 (3.4-5.0) mmol/L Chloride 105 (98-107) mmol/L Carbon Dioxide 25 (22-30) mmol/L Anion Gap 9 (4-12) mmol/L BUN 8 (7-17) mg/dL Creatinine 0.77 (0.7-1.0) mg/dL Estim Creat Clear Calc Not Reportable Estimated GFR > 60 (59 - ) Glucose 116 H (65-110) mg/dL Lactic Acid 1.2 (0.7-2.0) mmol/L Calcium 9.8 (8.4-10.2) mg/dL Total Bilirubin 0.6 (0.2-1.3) mg/dL AST 46 H (14-36) U/L ALT 21 (6-35) U/L Alkaline Phosphatase 76 (38-126) U/L Troponin I < 0.012 (0.000-0.034) ng/mL Total Protein 8.3 H (6.3-8.2) g/dL Albumin 4.9 (3.5-5.1) g/dL Lipase 209 (23-300) U/L Urine Color Yellow (Yellow) Urine Appearance Clear (Clear) Urine pH 6.5 (5.0-9.0) Ur Specific South Range 1.006 (1.001-1.035) Urine Protein Negative (Negative) mg/dL Urine Glucose (UA) Negative (Negative) mg/dL Urine Ketones Negative (Negative) mg/dL Ur Blood (Man) Trace (Negative) Urine Nitrate Negative (Negative) Urine Bilirubin Negative (Negative) Urine Urobilinogen 0.2 (<2.0) mg/dL Leukocyte Esterase Rfl 3+ H (Negative) NEHA/UL Urine RBC 0-2 (0-2) /hpf Urine WBC 11-20 H (0-3) /hpf Ur Squamous Epith Cells None seen (Few) /hpf Urine Bacteria Trace /hpf Urine Casts 0-2 Imaging Data Attestation: I personally reviewed and interpreted this imaging study as follows: My impression: Impressions Abdomen/Pelvis CT 02/01/25 23:05 IMPRESSION: 1. No evidence of appendicitis, diverticulitis or intestinal obstruction. 2. Slightly dilated intrahepatic bile ducts. 3. Dilated pancreatic duct with highly suggestive pancreatic divisum. 4. Slightly thickened wall of the colon which may indicate colitis. Follow-up advised. Discharge Plan Discharge Clinical Impression: Colitis, Abdominal pain, Diarrhea, Blood in stool Patient Disposition: Home Condition: Stable Instructions: Antibiotic Form, Clear Liquid Diet (ED), Abdominal Pain (ED), Colitis (ED) Additional Instructions: Your CT scan shows inflamed bowel wall consistent with colitis. We will treat this as a potential infectious process with antibiotics. Your CT scan also shows a mildly dilated pancreatic duct but no masses or any signs of urgent or emergent concerns and this can be followed up with outpatient with her GI specialist. Call your GI specialist tomorrow morning to arrange a close outpatient follow-up appointment. We will send you home with antibiotics, pain control medications, Zofran for nausea. Stick to a bland diet for the next several days until symptoms improve. Return with any high-grade fevers not responding to Tylenol, inability to tolerate oral intake, intractable abdominal pain, profuse diarrhea leading towards dehydration, profound rectal bleeding or any other concerns. Patient Language: Bahraini Prescriptions: New loperamide [Anti-Diarrheal (loperamide)] 2 mg capsule 2 mg PO Q6H PRN (Reason: loose stool) Qty: 14 0RF dicyclomine 20 mg tablet 20 mg PO TID PRN (Reason: abdominal pain) Qty: 14 0RF ondansetron 4 mg tablet,disintegrating 4 mg PO Q8H PRN (Reason: nausea and vomiting) Qty: 20 0RF ciprofloxacin HCl 500 mg tablet 500 mg PO Q12H 5 Days Qty: 10 0RF No Action metoprolol succinate 25 mg tablet extended release 24 hr 25 mg PO DAILY famotidine 20 mg tablet 20 mg PO DAILY PRN (Reason: Acid Reflux) Eliquis 5 mg tablet 5 mg PO BID flecainide 100 mg tablet 100 mg PO Q12H pantoprazole 40 mg tablet,delayed release (DR/EC) 40 mg PO BID buspirone 10 mg tablet 10 mg PO BID simethicone [Gas-X Extra Strength] 125 mg Tablet,Chewable 125 mg PO QID PRN (Reason: Abdominal Discomfort) Patient Comments: Patient states that she takes one between meals. alum-mag hydroxide-simeth [Mylanta Maximum Strength] 400-400-40 mg/5 mL Suspension 10 ml PO QID PRN (Reason: Acid Reflux) Patient Comments: Patient states she takes in between meals and before bed. dicyclomine 20 mg tablet 20 mg PO TID PRN (Reason: abdominal pain) Qty: 14 0RF ondansetron 4 mg tablet,disintegrating 4 mg PO Q8H PRN (Reason: nausea and vomiting) Qty: 10 0RF amitriptyline 10 mg tablet See Rx Instructions .ROUTE .COMPLEX Qty: 30 5RF Dose Instruction: TAKE 1 TABLET BY MOUTH EVERYDAY AT BEDTIME Rx Instructions: TAKE 1 TABLET BY MOUTH EVERYDAY AT BEDTIME Follow-up/Referrals: Mandeep Pennington, [Primary Care Provider] -
[2025-02-01] MEDS: HALOPERIDOL LACTATE 5 MG/ML VIAL 2.5 MG IV PUSH (22:31)
[2025-02-01] MEDS: FAMOTIDINE 20 MG/2 ML VIAL IV PUSH (22:31)
[2025-02-01] MEDS: HYDROmorphone HCL INJ (*CRX) 2 MG/ML VIAL 0.5 MG IV PUSH (22:32)
[2025-02-01 22:34] LABS: Basophils Percent Auto 0.2 % (0.2-1.2); Eosinophils Percent Auto 0.5 % (0-4.4); Hematocrit 37.6 % (37.0-47.0); Hemoglobin 12.1 g/dL (12.0-15.0); Immature Granulocyte Absolute 0.03 K/mm3 (0.00-0.031); Immature Granulocyte Percent A 0.3 % (0-0.5); Lymphocytes Absolute Auto 1.44 K/mm3 (0.9-3.2); Lymphocytes Percent Auto 16.8 % (18.3-44.2); Mean Corpuscular HGB Conc 32.2 g/dl (32-36); Mean Corpuscular Hemoglobin 29.7 pg (26-34); Mean Corpuscular Volume 92.4 fl (80-100); Mean Platelet Volume 9.8 fl (7.4-10.4); Monocytes Absolute Auto 0.8 K/mm3 (0.1-0.6); Monocytes Percent Auto 9.7 % (2.6-8.5); Neutrophils Absolute Auto 6.2 K/mm3 (1.3-6.7); Neutrophils Percent Auto 72.5 % (45.5-73.1); Platelet Count Result 321 k/mm3 (150-375); Red Blood Count 4.07 M/mm3 (4.2-5.4); Red Cell Distribution Width 13.5 % (11.5-14.5); White Blood Count 8.6 K/mm3 (4.5-10.0)
[2025-02-01] MEDS: SODIUM CHLORIDE 0.9% IV 1,000 ML 999 ML IV CONT (22:38)
[2025-02-01 22:42] LABS: Add Urine Microscopic? YES; Appearance Urine Clear (Clear); Bilirubin Urine Negative (Negative); Blood Urine Trace (Negative); Color Urine Yellow (Yellow); Glucose Urine UA Negative (Negative); Ketones Urine Negative (Negative); Leukocyte Esterase Ur 3+ LEU/UL (Negative); Nitrate Urine Negative (Negative); Non Pathogenic Casts 0-2; Protein Urine Negative (Negative); RBC Urine 0-2 /hpf (0-2); Specific Grav Ur 1.006 (1.001-1.035); Squamous Epithelial Cell Urine None Seen /hpf (Few); Urobilinogen Urine 0.2 mg/dL (<2.0); pH Urine 6.5 (5.0-9.0)
[2025-02-01 22:42] LABS: Lactic Acid Reflex 1.2 mmol/L (0.7-2.0)
[2025-02-01 22:43] LABS: Alanine Aminotransferase 21 U/L (6-35); Albumin Level 4.9 g/dL (3.5-5.1); Alkaline Phosphatase 76 U/L (38-126); Anion Gap 9 mmol/L (4-12); Aspartate Amino Transferase 46 U/L (14-36); Bilirubin,Total 0.6 mg/dL (0.2-1.3); Blood Urea Nitrogen 8 mg/dL (7-17); Calcium 9.8 mg/dL (8.4-10.2); Carbon Dioxide 25 mmol/L (22-30); Chloride 105 mmol/L (98-107); Estimated Glomerular Filt Rate > 60; Glucose 116 mg/dL (65-110); Lipase 209 U/L (23-300); Potassium 3.7 mmol/L (3.4-5.0); Sodium 139 mmol/L (137-145); Total Protein 8.3 g/dL (6.3-8.2)
--- OUTSIDE RECORDS SUMMARY | 2025-02-01 22:43 | XMS_ITS | Encounter Summary ---
Author Organization [facility] Address [address] [place] [address] Phone Care Team Providers Care Dietary Assistant Name Role Phone Mere Landa NP Unavailable [phone] Parmjit Dai MD Primary Care Provider [phone] Tico Burton MD Unavailable [phone] Ivan Liang MD Unavailable Reason for Visit * Reason Onset Date Comments GI Preprocedure 01/19/2025 Scheduling Testing/Treatment 01/19/2025 AC hold recs 01/19/2025 Encounter Details Date Type Department Care Team (Late st Contact Info) Description 01/19/2025 Telephone [facility] Gastroenterology [address] [place] [address] Medical Office [address] [place] [address] Abena Lam RN GI Preprocedure; Scheduling Testing/Treatment; AC hold recs Social History Tobacco Use Types Packs/Day Years Used Date Smoking Tobacco: Former Cigarettes 1 - 1999 Vaping Smokeless Tobacco: Never Comments:off and on Alcohol Use Standard Drinks/Week Comments No 0 (1 standard drink = 0.6 oz pur e alcohol) on occasion [facility] Utilities Answer Date Recorded In the past 12 months has [employer], gas, oil, or water company threatened to [...] on file Legal Sex Female 10:06 AM ZIPPER IRONER Gender Identity Female 06/17/2024 7:02 AM CDT [...] ago ENDOCRINE: None PRIOR PROCEDURE ISSUES: None PRINCIPAL PROCESS ENGINEER/: NA IMPLANTS.: None PSYCH/Behavioral Hx: Yes Depression/anxiety [...] and to contact their ordering MD or Steward/Stewardess Deck about bridging medication for procedure. No [] Yes - Letter Sent to Ordering Physician/Steward/Stewardess Deck Date sent: Hold instructions: GLP Weight Loss Medications N/A Educated Patient on the need to hold Medication, and to contact their ordering MD or Steward/Stewardess Deck about bridging medication for procedure. Y/N: No/NA None [] Yes - Letter Sent to Ordering Physician/Steward/Stewardess Deck Hold older Instructions: BLOOD THINNERS/ANTICOAG/ANTIPLATELET (BESIDES ASA) Medication: Apixaban (Eliquis) Physician contacted for hold order/date sent: Tarik Michael MD 01/19/25 Hold order Method sent: Epic Fax Date hold received: Hold instructions: CONTINUE ASPIRIN INFORMATION REQUESTED []Imaging: []Medical Progress Note/H&P []Medication list []Other: PATIENT OPTIMIZATION []Physician reviewing escalation: []CPAP: Date scheduled: Outcome : [] Location limitations: Scheduling Scheduling location limitations: Bar Supervisor needed [x] NA Language: POA [] NA Name: Arnulfo Gill [phone] Required extended education:no SPECIAL PROCEDURE INSTRUCTIONS Scheduling Notes Procedure information Date of procedure: 02/21/25 Time of procedure: 1300 Arrival time: 1100 for MANUEL teaching Location: [facility] Proceduralist: Rengarajan Instructions Method of instructions: MyChart and Verbal [x]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 Madga Azar ----- Message ----- From: Maty Hammond RN Sent: 01/17/2025 4:02 PM CDT To: Maura Ray [facility]; Abena Verduzco# Subject: RE: EGD/Endolip/MANUEL Abena, Clarification [...] 2:57 PM CDT To: Monique Mora RN; aMgda Brooks, RN; # Subject: RE: EGD/Endolip/MANUEL I called and had to leave a message on vm. Will let you know once I speak with pt. thanks ----- Message ----- From: Maty Hammond RN Sent: 01/12/2025 2:33 PM CDT To: Abena Lam RN; Monique Mora, KIET; # Subject: RE: [...] Lam RN; Monique Mora, KIET; # Subject: EGD/Endolip/AMNUEL Abena/Monique, This patient should be coming across one of your radars. Orders were placed today by Dr Davila's office for an EGD/Endoflip to be done at [facility] as well as a MANUEL pH capsule [...] Description 02/21/2025 1:00 PM CDT Hospital Encounter [facility] Digestive Disease [address] [address] Marv Earl MD [address] [address] 02/21/2025 1:00 PM CDT - 02/21/2025 1:30 PM CDT Surgery [facility] Center [facility] [address] [address] Marv Earl MD [address] [address] EGD/EndoFLIP/MANUEL Scheduled Procedures Name Priority Associated Diagnoses [...] 01/19/2025 documented in this encounter Care Teams Dietary Assistant Relationship Specialty Start Date End Date Parmjit Dai MD PCP - General 12/31/20 Mere Landa NP Nurse Practitioner 02/07/20 Tico Burton MD Surgeon General Surgery 08/09/21 Ivan Liang MD Consulting Physician General Surgery 09/09/23 documented as of this encounter
--- OUTSIDE RECORDS SUMMARY | 2025-02-01 22:43 | XMS_ITS | Clinical Summary ---
Author Organization [facility] Address [address] [place] [address] Phone Care Team Providers Care Steel Post Installer Name Role Phone Parmjit Dai MD Primary Care Provider [phone] Jazmine Kulkarni MD Unavailable [phone] Mir Spencer MD Unavailable Allergies Active Allergy [...] Comments Blood Pressure 96/66 10/29/2023 8:05 AM BINDING FOLDER MACHINE Pulse 52 10/29/2023 8:05 AM BINDING FOLDER MACHINE Temperature 36.9 C (98.4 F) 10/16/2023 8:53 AM BINDING FOLDER MACHINE Respiratory Rate 20 10/29/2023 8:05 AM BINDING FOLDER MACHINE Oxygen Saturation 100% 10/16/2023 8:53 AM BINDING FOLDER MACHINE Inhaled Oxygen Concentration - - Weight 56.7 kg (125 lb) 10/29/2023 8:05 AM BINDING FOLDER MACHINE Height 162.6 cm (5' 4) 10/29/2023 8:05 AM BINDING FOLDER MACHINE Body Mass Index 21.46 10/29/2023 8:05 AM BINDING FOLDER MACHINE Plan of Treatment Health Maintenance Due Date [...] age to complete this topic Insurance MEDICAID [place] MED[place] C [facility] C[employer] Care Teams Steel Post Installer Relationship Specialty Start Date End Date Parmjit Dai MD [address] [place] [address] [address] [place] [address] PCP - General Family Medicine 05/21/22 Jazmine Kulkarni MD [address] [place] [address] [address] [place] [address] Family Medicine 05/21/22 Mir Spencer MD [address] [place] [address] Consulting Physician Urology 10/29/23
--- OUTSIDE RECORDS SUMMARY | 2025-02-01 22:43 | XMS_ITS | Clinical Summary ---
Author Organization [facility] HealthCare Care Team Providers Care Cost Recovery Technician Name Role Phone Mere Landa NP Unavailable [phone] Parmjit Dai MD Primary Care Provider [phone] Tico Burton MD Unavailable [phone] Ivan Liang MD Unavailable Allergies Active Allergy [...] 09/03/2023 Assessment & Plan (09/17/2023 9:54 AM RESEARCH SUPPORT SPECIALIST): Diet as tolerates. Continue bowel regimen if needed to avoid straining. No submerging incision for 1 more week. Light duty for another 2 weeks. Patient will call us back with any further questions or concerns. Assessment & Plan (09/03/2023 8:54 AM RESEARCH SUPPORT SPECIALIST): I will discuss her case with [...] (09/10/2022): Added automatically from request for surgery [id number] Cyclical vomiting 09/05/2022 Gastritis 09/05/2022 Gastroesophageal reflux [...] 08/13/2021 Assessment & Plan (08/13/2021 9:33 AM RESEARCH SUPPORT SPECIALIST): Pt complains of pain with urination. Pt also complains of suprapubic pain. Plan - Urine analysis TIA (transient ischemic attack) 08/11/2021 Assessment & Plan (08/13/2021 9:29 AM RESEARCH SUPPORT SPECIALIST): Sarahy Gill 51-year-old female presenting with [...] mg Assessment & Plan (08/12/2021 6:00 PM RESEARCH SUPPORT SPECIALIST): Sarahy Gill 51-year-old female presenting with [...] recommendations Assessment & Plan (08/09/2021 6:14 PM RESEARCH SUPPORT SPECIALIST): Patient has a history of IBS [...] agitation/anxiety Assessment & Plan (08/13/2021 9:30 AM RESEARCH SUPPORT SPECIALIST): Currently mood at baseline. Continue home med Celexa Assessment & Plan (08/12/2021 5:53 PM RESEARCH SUPPORT SPECIALIST): Currently mood at baseline. Continue home med Celexa Assessment & Plan (08/09/2021 6:30 PM RESEARCH SUPPORT SPECIALIST): Per patient has a history of bipolar depressive type Stable at this time Not currently on any medication Patient denies any suicidal homicidal ideation Intussusception intestine 08/09/2021 Assessment & Plan (08/09/2021 6:36 PM RESEARCH SUPPORT SPECIALIST): 08/08/2021 CT abdomen/pelvis with contrast: Possible [...] q.day Assessment & Plan (08/13/2021 9:29 AM RESEARCH SUPPORT SPECIALIST): Blood pressure has been under control Metoprolol restarted Assessment & Plan (08/12/2021 5:49 PM RESEARCH SUPPORT SPECIALIST): Blood pressure has been under control Metoprolol has been on hold-to allow for permissive hypertension for the next 24 hours, will restart tomorrow Assessment & Plan (08/09/2021 6:31 PM RESEARCH SUPPORT SPECIALIST): Have reviewed 24 hour blood pressures [...] consult: Assessment & Plan (08/09/2021 6:12 PM RESEARCH SUPPORT SPECIALIST): CT abdomen pelvis with contrast at [place] yesterday showed intussusception CT abdomen pelvis with contrast at [facility]: Showed resolution of intussusception Patient has [...] monitor Assessment & Plan (08/13/2021 9:29 AM RESEARCH SUPPORT SPECIALIST): Currently in sinus rhythm. Eliquis on hold will resume on August 15. Continue with flecainide Metoprolol restarted Assessment & Plan (08/12/2021 5:54 PM RESEARCH SUPPORT SPECIALIST): Currently in sinus rhythm. Eliquis on hold will resume on August 15. Continue with flecainide Metoprolol on hold will resume tomorrow Assessment & Plan (08/09/2021 6:18 PM RESEARCH SUPPORT SPECIALIST): No acute events since admission Patient on Eliquis Metoprolol for rate control with hold parameters Will continue to monitor Essential tremor 10/12/2018 Assessment & Plan (08/13/2021 9:30 AM RESEARCH SUPPORT SPECIALIST): B/l hand with tremor - no changes in strength Assessment & Plan (08/09/2021 6:30 PM RESEARCH SUPPORT SPECIALIST): Patient reports after waking up had [...] consult Assessment & Plan (08/13/2021 9:30 AM RESEARCH SUPPORT SPECIALIST): Currently in no acute exacerbation. -continue Bentyl Assessment & Plan (08/12/2021 5:47 PM RESEARCH SUPPORT SPECIALIST): Currently in no acute exacerbation. -continue Bentyl Assessment & Plan (08/09/2021 6:15 PM RESEARCH SUPPORT SPECIALIST): Patient on Bentyl Monitoring electrolytes Assessment [...] ibs-d. Will get all the records from [place] and then regroup to discuss possible treatment options. Orthostatic dizziness 09/16/2016 Palpitations 07/29/2016 Migraine headache 07/29/2016 Assessment & Plan (12/18/2021 4:59 PM CDT): Started home Topamax Assessment & Plan (08/09/2021 6:17 PM RESEARCH SUPPORT SPECIALIST): Patient not complaining of headache or migraines at this time Sumatriptan on hold Hypokalemia Encounters Date Type Department Care Team Description 01/19/2025 Telephone [facility] [address] [place] [address] [address] [place] [address] Magda Brooks RN 01/19/[address] [facility] Gastroenterology [address] [place] [address] Medical Office Building [address], [address] [place] [address] Abena Lam RN GI Preprocedure; Scheduling Testing/Treatment; AC hold recs 01/16/[address] [facility] Gastroenterology [address] [place] [address] Medical Office [address], [address] [place] [address] Abena Lam RN Scheduling Testing/Treatment; Unsuccessful Phone Call 2 01/16/2025 Telephone [facility] Specialty Services [address] [place] [address] Katharine Bee RN 01/16/[address] [facility] Gastroenterology [facility] Advanced Medicine 12th [place] [address] [place] [address] Katharine Carty 01/12/[address] [facility] Gastroenterology [address] [place] [address] Medical Office Building [address], [address] [place] [address] Abena Lam RN Scheduling Testing/Treatment 01/12/2025 Orders Only [facility]) [facility] Minimally Invasive Surgery [address] [place] [address] Floor, [place] [phone] Say Davila MD PhD Gastroesophageal reflux disease, unspecified whether esophagitis present (Primary Dx) 01/09/[address] [facility] Gastroenterology [address] [place] [address] [place] [address] [place] [phone] Marah Byrnes RMA PRE PROCEDURE ASSESSMENT 01/09/[address] [facility] Gastroenterology [address] [place] [address] [place] [address] Forest Catherine MD Esophageal dysphagia (Primary Dx); Gastroesophageal reflux disease with esophagitis without hemorrhage 01/06/2025 Orders Only [facility]) [facility] Minimally Invasive Surgery [address] [place] [address], [place] [phone] Say Davila MD PhD Dysphagia, unspecified type (Primary Dx) 01/03/2025 Orders Only [facility]) [facility] Minimally Invasive Surgery [address] [place] [address], [place] [address] Say Davila MD PhD Gastroesophageal reflux disease, unspecified whether esophagitis present (Primary Dx) 11/25/2024 Telephone [facility] [place] [address] Julia Wyman, KIET 11/11/[address] [facility] Gastroenterology [address] [place] [address] [place] [phone] Katharine Carty Refill request from Last 3 [...] 0.6 oz pur e alcohol) on occasion [employer] Answer Date Recorded In the past 12 months has [employer], gas, oil, or water [employer] threatened to shut off services in your [...] any clubs o r organizations such as oriental orthodox groups, unions, fraternal or athletic groups, or [...] on file Legal Sex Female 10:06 AM RESEARCH SUPPORT SPECIALIST Gender Identity Female 06/17/2024 7:02 AM [...] Description 02/21/2025 1:00 PM CDT Hospital Encounter [facility] Dig[facility] Disease [place] [address] [address] Marv Earl MD [address] [address] 02/21/2025 1:00 PM CDT - 02/21/2025 1:30 PM CDT Surgery [facility] Digestive Disease [place] [address] [address] Marv Earl MD [address] [address] EGD/EndoFLIP/YI Scheduled Procedures Name Priority Associated Diagnoses Date/Ti ga ESOPHAGOGASTRODUODENOSCOPY Esophageal dysphagia Gastroesophageal reflux disease with [...] mammogram, encounter for COLONOSCOPY 10/29/2022 7:59 AM RESEARCH SUPPORT SPECIALIST from Last 3 Months or Most [...] nal Result * COLONOSCOPY (10/29/2022 7:59 AM RESEARCH SUPPORT SPECIALIST) Anatomical Region Laterality Modality Other Narrative Procedure Note Germania Sorto MD - 10/29/2022 7:59 AM CST [facility] Patient Name: Sarahy Gill Procedure Date: 10/29/2022 7:59 AM Date of : 1970 Admit Type: Outpatient Age: 52 Gender: Female Attending MD: Germania Sorto M.D. Room: [facility] ENDOSCOPY ROOM 1 Note Status: Finalized Patient [...] under direct vision. The Pediatric Colonoscope PCF-H190L [id number] was introducedthrough the anus and advanced to [...] 7:59 AM Procedure Code(s): --- Professional --- 67041, Colonoscopy, flexible; with biopsy, single or multiple Diagnosis Code(s): --- Professional --- K64.8, Other hemorrhoids D12.3, Benign neoplasm of transverse colon (hepatic flexure orsplenic flexure) K52.9, Noninfective gastroenteritis and colitis, unspecified CPT copyright 2020 [employer]. All rights reserved. The codes documented in this report are preliminary and upon record filing clerk reviewmay be revised to meet current compliance requirements. Recognized by the [place] [employer] for promoting quality in endoscopy Germania Sorto MD ENDOSCOPY PROCEDURES Final Result from Last 3 Months or Most Recently Relevant to Health Maintenance Insurance IDPA [facility] MEDICARE ADVANTAGE JOANAJOHN ALLEGIANCE Advance Directives For more information, please contact: [phone] Documents on File Type Date Recorded Patient Supervisor Looping Expl anation ADVANCE DIRECTIVE 08/14/2021 9:12 AM Raz r of Auto Repair Technician-Medical * Full Code (Latest Code Status on [...] 8:07 AM 10/29/2022 2:30 PM Care Teams Cost Recovery Technician Relationship Specialty Start Date End Date Parmjit Dai MD PCP - General 12/31/20 Mere Landa V., CARLA Nurse Practitioner 02/07/20 Tico Burton MD Surgeon General Surgery 08/09/21 Ivan Liang MD Consulting Physician General Surgery 09/09/23
--- OUTSIDE RECORDS SUMMARY | 2025-02-01 22:43 | XMS_ITS | Referral Summary ---
Author Organization [facility] HealthCare Care Team Providers Care Transit Operator Name Role Phone Mere Landa NP Unavailable [phone] Parmjit Dai MD Primary Care Provider [phone] Tico Burton MD Unavailable [phone] Ivan Liang MD Unavailable Encounters Date Type Department Care Team Description 01/19/2025 Telephone [facility] Disease [facility] [address] [facility] [address] [place] [address] Magda Brooks RN 01/19/2025 Telephone [facility] Gastroenterology [address] [facility] Medical Office Building [address], [address] [place] [address] Abena Lam, KIET GI Preprocedure; Scheduling Testing/Treatment; AC hold recs 01/16/2025 Telephone [facility] Gastroenterology [address] [facility] Medical Office Building [address], [address] [place] [address] Abena Lam, KIET Scheduling Testing/Treatment; Unsuccessful Phone Call 2 01/16/2025 Telephone [facility] Specialty Services [address] [place] [address] Katharine Bee RN 01/16/2025 Telephone [facility] Gastroenterology [address] [facility] 12th [place] [address] [place] [phone] Katharine Carty 01/12/2025 Telephone [facility] Gastroenterology [address] [facility] Medical Office Building [address], [address] [place] [address] Abena Lam, KIET Scheduling Testing/Treatment 01/12/2025 Orders Only [facility]) [facility] Minimally Invasive Surgery [address] [place] [address], [address] [place] [phone] Say Davila MD PhD Gastroesophageal reflux disease, unspecified whether esophagitis present (Primary Dx) 01/09/2025 Telephone [facility] Gastroenterology [address] [place] [address] [place] [address] Marah Byrnes RMA PRE PROCEDURE ASSESSMENT 01/09/2025 Orders Only [facility] Gastroenterology [address] [place] [address] [address] [place] [phone] Forest Catherine MD Esophageal dysphagia (Primary Dx); Gastroesophageal reflux disease with esophagitis without hemorrhage 01/06/2025 Orders Only [facility]) [facility] Minimally Invasive Surgery [address] [place] [address], [address] [place] [phone] Say Davila MD PhD Dysphagia, unspecified type (Primary Dx) 01/03/2025 Orders Only [facility]) [facility] Minimally Invasive Surgery [address] [place] [address], [place] [address] Say Davila MD PhD Gastroesophageal reflux disease, unspecified whether esophagitis present (Primary Dx) 11/25/2024 Telephone [facility] [address] [place] [address] Julia Wyman, KIET 11/11/2024 Telephone [facility] Gastroenterology [address] [place] [address] [place] [address] Carloz Katharine Refill request from Last 3 [...] 09/03/2023 Assessment & Plan (09/17/2023 9:54 AM SAND MIXER OPERATOR): Diet as tolerates. Continue bowel regimen if needed to avoid straining. No submerging incision for 1 more week. Light duty for another 2 weeks. Patient will call us back with any further questions or concerns. Assessment & Plan (09/03/2023 8:54 AM SAND MIXER OPERATOR): I will discuss her case with GI. [...] (09/10/2022): Added automatically from request for surgery [id number] Cyclical vomiting 09/05/2022 Gastritis 09/05/2022 Gastroesophageal reflux [...] 08/13/2021 Assessment & Plan (08/13/2021 9:33 AM SAND MIXER OPERATOR): Pt complains of pain with urination. Pt also complains of suprapubic pain. Plan - Urine analysis TIA (transient ischemic attack) 08/11/2021 Assessment & Plan (08/13/2021 9:29 AM SAND MIXER OPERATOR): Sarahy Gill 51-year-old female presenting with left [...] mg Assessment & Plan (08/12/2021 6:00 PM SAND MIXER OPERATOR): Sarahy Gill 51-year-old female presenting with left [...] recommendations Assessment & Plan (08/09/2021 6:14 PM SAND MIXER OPERATOR): Patient has a history of IBS with [...] agitation/anxiety Assessment & Plan (08/13/2021 9:30 AM SAND MIXER OPERATOR): Currently mood at baseline. Continue home med Celexa Assessment & Plan (08/12/2021 5:53 PM SAND MIXER OPERATOR): Currently mood at baseline. Continue home med Celexa Assessment & Plan (08/09/2021 6:30 PM SAND MIXER OPERATOR): Per patient has a history of bipolar depressive type Stable at this time Not currently on any medication Patient denies any suicidal homicidal ideation Intussusception intestine 08/09/2021 Assessment & Plan (08/09/2021 6:36 PM SAND MIXER OPERATOR): 08/08/2021 CT abdomen/pelvis with contrast: Possible cystitis, [...] q.day Assessment & Plan (08/13/2021 9:29 AM SAND MIXER OPERATOR): Blood pressure has been under control Metoprolol restarted Assessment & Plan (08/12/2021 5:49 PM SAND MIXER OPERATOR): Blood pressure has been under control Metoprolol has been on hold-to allow for permissive hypertension for the next 24 hours, will restart tomorrow Assessment & Plan (08/09/2021 6:31 PM SAND MIXER OPERATOR): Have reviewed 24 hour blood pressures and [...] consult: Assessment & Plan (08/09/2021 6:12 PM SAND MIXER OPERATOR): CT abdomen pelvis with contrast at [place] yesterday showed intussusception CT abdomen pelvis with contrast at [facility]: Showed resolution of intussusception Patient has [...] monitor Assessment & Plan (08/13/2021 9:29 AM SAND MIXER OPERATOR): Currently in sinus rhythm. Eliquis on hold will resume on August 15. Continue with flecainide Metoprolol restarted Assessment & Plan (08/12/2021 5:54 PM SAND MIXER OPERATOR): Currently in sinus rhythm. Eliquis on hold will resume on August 15. Continue with flecainide Metoprolol on hold will resume tomorrow Assessment & Plan (08/09/2021 6:18 PM SAND MIXER OPERATOR): No acute events since admission Patient on Eliquis Metoprolol for rate control with hold parameters Will continue to monitor Essential tremor 10/12/2018 Assessment & Plan (08/13/2021 9:30 AM SAND MIXER OPERATOR): B/l hand with tremor - no changes in strength Assessment & Plan (08/09/2021 6:30 PM SAND MIXER OPERATOR): Patient reports after waking up had increase [...] consult Assessment & Plan (08/13/2021 9:30 AM SAND MIXER OPERATOR): Currently in no acute exacerbation. -continue Bentyl Assessment & Plan (08/12/2021 5:47 PM SAND MIXER OPERATOR): Currently in no acute exacerbation. -continue Bentyl Assessment & Plan (08/09/2021 6:15 PM SAND MIXER OPERATOR): Patient on Bentyl Monitoring electrolytes Assessment & [...] ibs-d. Will get all the records from [place] and then regroup to discuss possible treatment options. Orthostatic dizziness 09/16/2016 Palpitations 07/29/2016 Migraine headache 07/29/2016 Assessment & Plan (12/18/2021 4:59 PM CDT): Started home Topamax Assessment & Plan (08/09/2021 6:17 PM SAND MIXER OPERATOR): Patient not complaining of headache or migraines [...] on occasion [facility] Utilities Answer Date Recorded In the past [...] any clubs o r organizations such as judaism groups, unions, fraternal or athletic groups, or [...] on file Legal Sex Female 10:06 AM SAND MIXER OPERATOR Gender Identity Female 06/17/2024 7:02 AM [...] Description 02/21/2025 1:00 PM CDT Hospital Encounter [facility] [address] [place] [address] Marv Earl MD [address] [place] [address] 02/21/2025 1:00 PM CDT - 02/21/2025 1:30 PM CDT Surgery [facility] [address] [facility] [address] [place] [address] Marv Earl MD [address] [place] [address] EGD/EndoFLIP/YI Scheduled Procedures Name Priority Associated Diagnoses [...] mammogram, encounter for COLONOSCOPY 10/29/2022 7:59 AM SAND MIXER OPERATOR from Last 3 Months or Most Recently [...] nal Result * COLONOSCOPY (10/29/2022 7:59 AM SAND MIXER OPERATOR) Anatomical Region Laterality Modality Other Narrative Procedure Note Germania Sorto MD - 10/29/2022 7:59 AM CST [facility] Patient Name: Sarahy Gill Procedure Date: 10/29/2022 7:59 AM Date of : 1970 Admit Type: Outpatient Age: 52 Gender: Female Attending MD: Germania Sorto M.D. Room: [facility] ENDOSCOPY ROOM 1 Note Status: Finalized Patient [...] under direct vision. The Pediatric Colonoscope PCF-H190L [id number] was introducedthrough the anus and advanced to [...] 7:59 AM Procedure Code(s): --- Professional --- 56666, Colonoscopy, flexible; with biopsy, single or multiple Diagnosis Code(s): --- Professional --- K64.8, Other hemorrhoids D12.3, Benign neoplasm of transverse colon (hepatic flexure orsplenic flexure) K52.9, Noninfective gastroenteritis and colitis, unspecified CPT copyright 2020 [employer]. All rights reserved. The codes documented in this report are preliminary and upon business development representative reviewmay be revised to meet current compliance requirements. Recognized by the [employer] for promoting quality in endoscopy Germania Sorto MD ENDOSCOPY PROCEDURES Final Result from Last 3 Months or Most Recently Relevant to Health Maintenance Insurance IDPA [facility] MEDICARE ADVANTAGE JOANAJOHN OLMSTEADALEX [facility] MEDICARE ADVANTAGE FRANCISCO SPEARS Advance Directives For more information, please contact: [phone] Documents on File Type Date Recorded Patient Adult Basic Education Manager Expl anation ADVANCE DIRECTIVE 08/14/2021 9:12 AM Raz r of Diet Aide-Medical * Full Code (Latest Code Status on [...] 8:07 AM 10/29/2022 2:30 PM Care Teams Transit Operator Relationship Specialty Start Date End Date Parmjit Dai MD PCP - General 12/31/20 Mere Landa NP Nurse Practitioner 02/07/20 Tico Burton MD Surgeon General Surgery 08/09/21 Ivan Liang MD Consulting Physician General Surgery 09/09/23
--- OUTSIDE RECORDS SUMMARY | 2025-02-01 22:43 | XMS_ITS | Encounter Summary ---
Author Organization [facility] Healthcare Address [address] [place] [address] Care Team Providers Care Project Management Engineer Name Role Phone Mere Landa NP Unavailable [phone] Parmjit Dai MD Primary Care Provider [phone] Tico Burton MD Unavailable [phone] Ivan Liang MD Unavailable Reason for Visit * Reason Onset Date Comments Scheduling Appointments 06/19/2021 confirmi ng mammogram appt Encounter Details Date Type Department Care Team (Late st Contact Info) Description 06/19/2021 Telephone [facility] [address] [place] [address] Cheryl Trejo RT Scheduling Appointments (confirming mammogram [...] file Legal Sex Female 10:06 AM HOME ENERGY CONSULTANT SUPERVISOR Gender Identity Female 06/17/2024 7:02 AM CDT Sexual Orientation Not on file documented as of this encounter Plan of Treatment Upcoming Encounters Date Type Department Care Team (Latest Contact Info) Description 02/21/2025 1:00 PM CDT Hospital Encounter [facility] Dig[facility]ive Disease [place] [address] [facility] [address] [place] [address] Marv Earl MD [address] [place] [address] 02/21/2025 1:00 PM CDT - 02/21/2025 1:30 PM CDT Surgery [facility] [place] [address] [facility] [address] [place] [address] Marv Earl MD [address] [place] [address] EGD/EndoFLIP/YI Scheduled Procedures Name Priority Associated Diagnoses Date/Ti co ESOPHAGOGASTRODUODENOSCOPY Esophageal dysphagia Gastroesophageal reflux disease with [...] COVID: Suspected 07/06/2022 07/06/2022 07/06/2022 3:52 AM HOME ENERGY CONSULTANT SUPERVISOR COVID: Suspected 08/18/2022 08/18/2022 08/18/2022 12:59 AM HOME ENERGY CONSULTANT SUPERVISOR COVID: Suspected 09/19/2023 09/19/2023 09/19/2023 11:01 AM HOME ENERGY CONSULTANT SUPERVISOR C. difficile suspected 07/21/2024 07/21/202407/22 3:05 AM HOME ENERGY CONSULTANT SUPERVISOR documented as of this encounter Care Teams Project Management Engineer Relationship Specialty Start Date End Date Parmjit Dai MD PCP - General 12/31/20 Mere Landa NP Nurse Practitioner 02/07/20 Tico Burton MD Surgeon General Surgery 08/09/21 Ivan Liang MD Consulting Physician General Surgery 09/09/23 documented as of this encounter
--- OUTSIDE RECORDS SUMMARY | 2025-02-01 22:43 | XMS_ITS | Clinical Summary ---
Author Organization [facility] Address [address] [place] [address] Care Team Providers Care Lap Machine Tender Name Role Phone Mandeep Pennington DO Primary Care Provider [phone] Source Comments [facility],non-owned Affiliates and Associated Physician Practices is amultiple site organization consisting of ambulatory clinics and hospital sitesin [place], [place], [place] and [place]. This disclosure is being madepursuant to the Care Everywhere program and may not contain all information available regarding this patient. Last updated 18.[facility] Allergies Active Allergy Reactions Criticality Noted Date [...] - 06/07/2024 7:12 AM CDT Performed at: [address] [place] [id number] Marketing Outreach Coordinator: Edmundo Dias PhD, Phone: [phone] Rolando Castro DO LAB - CHEMISTRY ORDERABLES Final Result Performing Organization Address City/State/[facility] Co de Phone Number [facility] INSURANCE BILL [address] [place] [address] from Last 3 Months or Most Recently Relevant to Health Maintenance Insurance [employer] [facility] MANAGED MEDICARE ADV Care Teams Lap Machine Tender Relationship Specialty Start Date End Date Mandeep Pennington DO [address] [place] [id number] PCP - General Internal Medicine 06/30/24
[2025-02-01 22:47] VITALS: BP 126/84; PULSE 70; RESP 13; O2SAT 100
[2025-02-01 22:54] LABS: Troponin I < 0.012 ng/mL (0.000-0.034)
[2025-02-01 22:56] LABS: Bacteria Urine Trace /hpf
[2025-02-01 23:07] VITALS: BP 128/72; PULSE 74; RESP 14; O2SAT 100
[2025-02-01 23:16] VITALS: BP 122/66; PULSE 72; RESP 17; O2SAT 100
[2025-02-01 23:31] VITALS: BP 112/69; PULSE 81; RESP 13; O2SAT 100
[2025-02-01] MEDS: CIPROFLOXACIN 400 MG/D5W 200ML 200 ML 200 MG IVPB (23:40)
[2025-02-01 23:46] VITALS: BP 122/78; PULSE 71; RESP 15; O2SAT 98
[2025-02-02 00:01] VITALS: BP 118/65; PULSE 68; RESP 20; O2SAT 97
[2025-02-02 00:16] VITALS: BP 105/70; PULSE 72; RESP 17; O2SAT 98
== END 2025-02-02 00:52 | disposition home or self-care (01) ==
PROVIDERS: Emergency Provider Student in an Organized Health Care Education/Training Program; PCP Internal Medicine
DX: K52.9 Noninfective gastroenteritis and colitis, unspecified (principal); K92.1 Melena; I48.91 Unspecified atrial fibrillation; E78.5 Hyperlipidemia, unspecified; K90.0 Celiac disease; K58.1 Irritable bowel syndrome with constipation; K21.9 Gastro-esophageal reflux disease without esophagitis; M19.90 Unspecified osteoarthritis, unspecified site; G62.9 Polyneuropathy, unspecified; F41.9 Anxiety disorder, unspecified; F32.A Depression, unspecified; F17.290 Nicotine dependence, other tobacco product, uncomplicated; Z86.0101 Personal history of adenomatous and serrated colon polyps; Z86.73 Personal history of transient ischemic attack (TIA), and cerebral infarction without residual deficits; Z90.49 Acquired absence of other specified parts of digestive tract; Z79.01 Long term (current) use of anticoagulants; Z79.899 Other long term (current) drug therapy; R93.3 Abnormal findings on diagnostic imaging of other parts of digestive tract
CPT/HCPCS: 36415; 74177; 80053; 81001; 83605; 83690; 84484; 85025; 87086; 93005; 96361; 96365; 96375; 99284; J0744; J1171; J1630; J7030; Q9967

== ENCOUNTER 2025-02-06 14:27 | Outpatient (RCR) | payer OTHER, MEDICARE, SELFPAY ==
--- NOTE | 2025-02-06 15:25 | OPREHPOC ---
Outpatient Therapy Plan of Care This is a Multidisciplinary Plan of Care that may contain components documented by all disciplines (PT, OT, and ST.) PT Problem 1 PT Problem #1 Knowledge Deficit PT Goal 1 Goal / Goal Update 1. Patient will perform independent HEP 2. Patient will verbalize urge suppression strategies Target Visit 3 PT Problem 2 PT Problem #2 Impaired Strength PT Goal 1 Goal / Goal Update 1. Improve pelvic floor strength to 4/5 to reduce incontinence and support symptoms of prolapse 2. Improve pelvic floor endurance to 10 seconds to reduce incontinence and support symptoms of prolapse Target Visit 6 PT Problem 3 PT Problem #3 Impaired Functional ADLs PT Goal 1 Goal / Goal Update 1. Patient will report incontinence no more than 1 time in a 2 week period 2. Patient will be able to hold at least 30 minutes before voiding 3. Patient will void no more than 8 times in a 24 hour period 4. Patient will report BM at least 5 days out of 7 Target Visit 6
--- NOTE | 2025-02-06 15:25 | PTOPEVAL1 ---
Assessment and note entered by Autumn Estrada DPT Evaluation Information Assessment Status Evaluation Diagnosis n81.10 ICD-10 Condition Codes (PT) Weakness R53.1,Urge incontinence N39.41,Mixed incontinence N39.46,Stress incontinence N39.3 Subjective Information Pt reports diagnosis of cystocele and is urinating frequently. Voids more than 10 times a day, can hold urge to void up to 5 minutes but not longer. Urinary incontinence a few times a week and often has to void again right after voiding. Incontinence with cough or sneeze as well as on the way to the bathroom. Wears pads if going out in the community and has had to change clothes at times. Some pain with urination. Feels pressure and heaviness from prolapse, causes difficulty with urination. BM varies, has been diagnosed with IBS-C. Recently BM every 3rd day, sometimes will need to strain. Does not sit more than 5 minutes on average. Highest pain with BM 4-5/10 and lowest 0/10. No significant history of pelvic pain. Pt has been 8 times, delivered 7 times: 1 C- section, 6 vaginal deliveries. Tearing with multiple. Previous abnormal pap smear and colposcopy, uterine ablation, cysts removed from ovarian. No other b/b history. Patient goal: cut down the amount of times I have to pee during the day and control it better when I 'm out and about Return to MD in the fall. Pt already keeps a food journal. Was just given a fiber supplement to use once a day. Reported Pain Level Pain Score 0: Self Report Assessment PT Clinical Summary The patient is presenting to skilled therapy with a diagnosis of cystocele, reports of mixed urinary incontinence, urinary frequency, and difficulty with BM and diagnosis of IBS-C. She presents with decreased pelvic floor strength and endurance as well as signs of pelvic organ prolapse, and decreased hip and abdominal strength. These impairments are contributing to her urinary symptoms and frequent incontinence. She will highly benefit from therapy to improve reduce incontinence, urinary frequency, and improve symptoms from prolapse in order to return to full function. Plan of Care Interventions Manual Therapy,Neuro Re-education,Patient/ Caregiver Education,Therapeutic Activities, Therapeutic Exercise PT Services Indicated Yes Treatment Frequency and 1 time a week for 6 visits Duration These treatments will address the objective and functional deficits as defined above. The patient will be advanced safely and appropriately in order for the patient to progress towards his/her prior level of function. Additional exercises will be introduced and as well as a comprehensive home exercise program upon discharge, if needed, ?to ensure carryover of functional gains achieved in the clinic. This treatment plan has been reviewed and agreement upon by the patient.
--- NOTE | 2025-02-16 08:01 | PCPTNOTE ---
Patient called to cancel appointment 02/16/25, unknown reason.
--- NOTE | 2025-02-20 13:51 | PCPTNOTE ---
Patient called to cancel appointment 02/20/25 due to needing to get other medical testing done tomorrow.
--- NOTE | 2025-03-02 10:03 | PCPTNOTE ---
Patient did not show up for appointment 03/02/25.
--- NOTE | 2025-03-23 09:44 | PCPTNOTE ---
Patient did not show up for appointment 03/23/25.
--- NOTE | 2025-03-30 09:23 | PTOPDC ---
Assessment and note entered by Autumn Estrada DPT Evaluation Information Assessment Status Discharge - Pt Not Present Diagnosis n81.10 ICD-10 Condition Codes (PT) Weakness R53.1,Urge incontinence N39.41,Mixed incontinence N39.46,Stress incontinence N39.3 Subjective Information - Assessment PT Clinical Summary Patient has not attended therapy since initial evaluation on 02/06/25. She has cancelled/no showed 4 visits since then, and her case will be discharged per attendance policy. Plan of Care PT Services Indicated No
== END 2025-03-31 07:37 | disposition home or self-care (01) ==
LOC: ANHGOSHPT 14:27
PROVIDERS: PCP Internal Medicine; Visit Provider Nurse Practitioner Obstetrics & Gynecology
DX: N81.10 Cystocele, unspecified (principal)
CPT/HCPCS: 97112; 97162; 97530

== ENCOUNTER 2025-02-12 04:55 | Emergency (ER) | payer OTHER, MEDICARE, SELFPAY ==
--- OUTSIDE RECORDS SUMMARY | 2025-02-12 04:57 | XMS_ITS | Clinical Summary ---
Author Organization [facility] Care Team Providers Care Clinical Science Liaison Name Role Phone Mere Landa NP Unavailable [phone] Parmjit Dai MD Primary Care Provider [phone] Tico Burton MD Unavailable [phone] Ivan Liang MD Unavailable Allergies Active Allergy [...] total) by mouth daily 30 tablet 1 08/13/20 21 Active flecainide (TAMBOCOR) 100 mg tablet TAKE 1 TABLET BY MOUTH TWICE DAILY. START TAKING Saturday 07/0707/08/20 22 Active albuterol HFA (PROVENTIL HFA,VENTOLIN HFA,PROAIR HFA) 90 mcg/actuation inhaler 2 puffs every 4 (four) hours as needed 04/03/20 23 Active famotidine (PEPCID) 20 mg tablet Take 1 tablet (20 mg total) by mouth daily as needed for indigestion or heartburn 180 tablet 3 04/17/20 23 Active dicyclomine (BENTYL) 20 mg tablet Take 1 tablet (20 mg total) by mouth 4 (four) times a day as needed (abdominal pain/cramping) 360 capsule 3 04/17/20 23 Active docusate sodium (COLACE) 100 mg capsuleIndicati ons:constipatio n Take 2 capsules (200 mg total) by mouth nightly Active meclizine (ANTIVERT) 12.5 mg tablet Take 1 tablet (12.5 mg total) by mouth 3 (three) times a day as needed 10/16/19 24 Active cephalexin (KEFLEX) 500 mg capsule Take 1 capsule (500 mg total) by mouth every 12 (twelve) hours 11/20/19 24 Active mirtazapine (REMERON) 15 mg tablet 11/18/19 24 Active amitriptyline (ELAVIL) 10 mg tablet Take 1 tablet (10 mg total) by mouth nightly at bedtime 02/03/20 24 Active ondansetron (ZOFRAN) 8 mg tablet Take 0.5-1 tablets (4-8 mg total) by mouth every 6 (six) hours as needed for nausea or vomiting 20 tablet 3 02/16/20 24 Active linaCLOtide (LINZESS) 72 mcg capsuleIndicati ons:Constipatio n Predominant Irritable Bowel Syndrome Take 1 capsule (72 mcg total) by mouth daily 30 capsule 2 02/19/20 24 Active SUMAtriptan (IMITREX) 6 mg/0.5 mL injection 01/04/[address] (PROTONIX) 40 mg EC tablet Take 1 tablet (40 mg total) by mouth 2 (two) times a day before breakfast and dinner 60 tablet 1 09/02/19 25 Active busPIRone (BUSPAR) 10 mg tabletIndicatio ns:Generalized Anxiety Disorder Take 1 tablet (10 mg total) by mouth 2 (two) times a day 60 tablet 2 01/17/20 25 025 Active acetaminophen (TYLENOL) 500 mg tablet Take 1 tablet (500 mg total) by mouth every 6 (six) hours as needed 07/18/20 23 Active busPIRone (BUSPAR) 10 mg tabletIndicatio ns:Generalized Anxiety Disorder Take 1 tablet (10 mg total) by mouth 2 (two) times a day 60 tablet 1 11/12/19 25 025 Discontinu ed(Reorder ) polyethylene glycol (GoLYTELY) 236-22.74-6.74 -5.86 gram solution Take 4,000 mL by mouth once for 1 dose PLEASE TAKE 1ST HALF (2L) AT 6PM THE EVENING PRIOR TO YOUR PROCEDURE, AND THE 2ND HALF (2L) SIX HOURS BEFORE LEAVING HOME IN THE MORNING. 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 Continue bowel regimen if needed to avoid straining. No submerging incision for 1 more week. Light duty for another 2 weeks. Patient will call us back with any further questions or concerns. Assessment & Plan (09/03/2023 8:54 AM SUPERINTENDENT COLLIERY): I will discuss her case with GI. [...] (09/10/2022): Added automatically from request for surgery [id number] Cyclical vomiting 09/05/2022 Gastritis 09/05/2022 Gastroesophageal reflux [...] 08/13/2021 Assessment & Plan (08/13/2021 9:33 AM SUPERINTENDENT COLLIERY): Pt complains of pain with urination. Pt also complains of suprapubic pain. Plan - Urine analysis TIA (transient ischemic attack) 08/11/2021 Assessment & Plan (08/13/2021 9:29 AM SUPERINTENDENT COLLIERY): Sarahy Mendezalexanderelise 51-year-old female presenting with left [...] mg Assessment & Plan (08/12/2021 6:00 PM SUPERINTENDENT COLLIERY): Sarahy Gill 51-year-old female presenting with left [...] recommendations Assessment & Plan (08/09/2021 6:14 PM SUPERINTENDENT COLLIERY): Patient has a history of IBS with [...] agitation/anxiety Assessment & Plan (08/13/2021 9:30 AM SUPERINTENDENT COLLIERY): Currently mood at baseline. Continue home med Celexa Assessment & Plan (08/12/2021 5:53 PM SUPERINTENDENT COLLIERY): Currently mood at baseline. Continue home med Celexa Assessment & Plan (08/09/2021 6:30 PM SUPERINTENDENT COLLIERY): Per patient has a history of bipolar depressive type Stable at this time Not currently on any medication Patient denies any suicidal homicidal ideation Intussusception intestine 08/09/2021 Assessment & Plan (08/09/2021 6:36 PM SUPERINTENDENT COLLIERY): 08/08/2021 CT abdomen/pelvis with contrast: Possible cystitis, [...] q.day Assessment & Plan (08/13/2021 9:29 AM SUPERINTENDENT COLLIERY): Blood pressure has been under control Metoprolol restarted Assessment & Plan (08/12/2021 5:49 PM SUPERINTENDENT COLLIERY): Blood pressure has been under control Metoprolol has been on hold-to allow for permissive hypertension for the next 24 hours, will restart tomorrow Assessment & Plan (08/09/2021 6:31 PM SUPERINTENDENT COLLIERY): Have reviewed 24 hour blood pressures and [...] consult: Assessment & Plan (08/09/2021 6:12 PM SUPERINTENDENT COLLIERY): CT abdomen pelvis with contrast at [facility] yesterday showed intussusception CT abdomen pelvis with contrast at [facility]: Showed resolution of intussusception Patient has [...] monitor Assessment & Plan (08/13/2021 9:29 AM SUPERINTENDENT COLLIERY): Currently in sinus rhythm. Eliquis on hold will resume on August 15. Continue with flecainide Metoprolol restarted Assessment & Plan (08/12/2021 5:54 PM SUPERINTENDENT COLLIERY): Currently in sinus rhythm. Eliquis on hold will resume on August 15. Continue with flecainide Metoprolol on hold will resume tomorrow Assessment & Plan (08/09/2021 6:18 PM SUPERINTENDENT COLLIERY): No acute events since admission Patient on Eliquis Metoprolol for rate control with hold parameters Will continue to monitor Essential tremor 10/12/2018 Assessment & Plan (08/13/2021 9:30 AM SUPERINTENDENT COLLIERY): B/l hand with tremor - no changes in strength Assessment & Plan (08/09/2021 6:30 PM SUPERINTENDENT COLLIERY): Patient reports after waking up had increase [...] consult Assessment & Plan (08/13/2021 9:30 AM SUPERINTENDENT COLLIERY): Currently in no acute exacerbation. -continue Bentyl Assessment & Plan (08/12/2021 5:47 PM SUPERINTENDENT COLLIERY): Currently in no acute exacerbation. -continue Bentyl Assessment & Plan (08/09/2021 6:15 PM SUPERINTENDENT COLLIERY): Patient on Bentyl Monitoring electrolytes Assessment & [...] ibs-d. Will get all the records from [facility] and then regroup to discuss possible treatment options. Orthostatic dizziness 09/16/2016 Palpitations 07/29/2016 Migraine headache 07/29/2016 Assessment & Plan (12/18/2021 4:59 PM CDT): Started home Topamax Assessment & Plan (08/09/2021 6:17 PM SUPERINTENDENT COLLIERY): Patient not complaining of headache or migraines at this time Sumatriptan on hold Hypokalemia Encounters Date Type Department Care Team Description 02/08/2025 Orders Only [facility] Gastroenterology [address] [place] [address] Medical Office Building [address], [address] [place] [address] Monique Delgado, KIET 02/08/2025 Documentation [facility] Gastroenterology [address] [place] [address] Medical Office Building [address], [address] [place] [address] Monique Delgado, RN adding colon to 02/21/25 procedure 02/07/2025 Orders Only [facility] Gastroenterology [facility] 12th [place] [address] Rose Negron MD Abnormal CT scan, gastrointestinal tract (Primary Dx) 02/06/2025 Telephone [facility] Gastroenterology [address] [place] [address] Medical Office Building [address] [place] [address] Monique Delgado, RN AC Hold recommendations 01/19/2025 Telephone [facility] [address] [facility] [address] [place] [address] Magda Brooks RN 01/19/2025 Telephone [facility] Gastroenterology [address] [place] [address] Medical Office Building [address] [place] [address] Abena Lam, KIET GI Preprocedure; Scheduling Testing/Treatment; AC hold recs 01/16/2025 Telephone [facility] Gastroenterology [address] [place] [address] Medical Office Building [address], [address] [place] [address] Abena Lam, KITE Scheduling Testing/Treatment; Unsuccessful Phone Call 2 01/16/2025 Telephone [facility] Special[facility] [address] [place] [address] Katharine Bee, KIET 01/16/2025 Telephone [facility] Gastroenterology [address] [place] [address] [place] [phone] Katharine Carty 01/12/2025 Telephone [facility] Gastroenterology [address] [place] [address] Medical Office Building [address], [address] [place] [address] Abena Lam, KIET Scheduling Testing/Treatment 01/12/2025 Orders Only [facility] Minimally In[facility] [address], [address] [place] [phone] Say Davila MD PhD Gastroesophageal reflux disease, unspecified whether esophagitis present (Primary Dx) 01/09/2025 Telephone [facility] Gastroenterology [address] [place] [address] [place] [address] Marah Byrnes RMA PRE PROCEDURE ASSESSMENT 01/09/2025 Orders Only [facility] Gastroenterology [address] [place] [address] 12th [place] [phone] Forest Catherine MD Esophageal dysphagia (Primary Dx); Gastroesophageal reflux disease with esophagitis without hemorrhage 01/06/2025 Orders Only [facility]) [facility] Minimally [facility]vasive Surgery [address] [facility] 12th Floor, [place] [phone] Say Davila MD PhD Dysphagia, unspecified type (Primary Dx) 01/03/2025 Orders Only [facility]) - [facility] Minimally Invasive Surgery [address] [facility] 12th Floor, [place] [address] Say Davila MD PhD Gastroesophageal reflux disease, unspecified whether esophagitis present (Primary Dx) 11/25/2024 Telephone [facility] [address] [place] [address] Julia Wyman RN from Last 3 Months Immunizations Immunization Administration [...] 0.6 oz pur e alcohol) on occasion [facility] Utilities Answer Date Recorded In the past [...] any clubs o r organizations such as mosque groups, unions, fraternal or athletic groups, or [...] on file Legal Sex Female 10:06 AM SUPERINTENDENT COLLIERY Gender Identity Female 06/17/2024 7:02 AM CDT [...] Description 02/21/2025 1:00 PM CDT Hospital Encounter [facility] [address] [address] Marv Earl MD [address] [place] [address] 02/21/2025 1:00 PM CDT - 02/21/2025 1:30 PM CDT Surgery [facility] [address] [facility] [address] [place] [address] Marv Earl MD [address] [place] [address] EGD/EndoFLIP/YI/ Colon Scheduled Procedures Name Priority Associated Diagnoses Date/Ti me ESOPHAGOGASTRODUODENOSCOPY Esophageal dysphagia Gastroesophageal reflux disease with esophagitis without hemorrhage Rectal bleeding 02/21/2025 1:00 PM CDT COLONOSCOPY Esophageal dysphagia Gastroesophageal reflux disease with esophagitis without hemorrhage Rectal bleeding 02/21/2025 1:00 PM CDT ESOPHAGOGASTRODUODENOSCOPY Open Access [...] mammogram, encounter for COLONOSCOPY 10/29/2022 7:59 AM SUPERINTENDENT COLLIERY from Last 3 Months or Most Recently [...] nal Result * COLONOSCOPY (10/29/2022 7:59 AM SUPERINTENDENT COLLIERY) Anatomical Region Laterality Modality Other Narrative Procedure Note Germania Sorto MD - 10/29/2022 7:59 AM CST [facility] Patient Name: Sarahy Gill Procedure Date: 10/29/2022 7:59 AM Date of : 1970 Admit Type: Outpatient Age: 52 Gender: Female Attending MD: Germania Sorto M.D. Room: [facility] ENDOSCOPY ROOM 1 Note Status: Finalized [...] under direct vision. The Pediatric Colonoscope PCF-H190L [id number] was introducedthrough the anus and advanced to [...] 7:59 AM Procedure Code(s): --- Professional --- 11540, Colonoscopy, flexible; with biopsy, single or multiple Diagnosis Code(s): --- Professional --- K64.8, Other hemorrhoids D12.3, Benign neoplasm of transverse colon (hepatic flexure orsplenic flexure) K52.9, Noninfective gastroenteritis and colitis, unspecified CPT copyright 2020 [employer]. All rights reserved. The codes documented in this report are preliminary and upon physical therapist reviewmay be revised to meet current compliance requirements. 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
--- OUTSIDE RECORDS SUMMARY | 2025-02-12 04:57 | XMS_ITS | Referral Summary ---
Author Organization [facility] Care Team Providers Care Qa Internship Name Role Phone Mere Landa NP Unavailable [phone] Parmjit Dai MD Primary Care Provider [phone] Tico Burton MD Unavailable [phone] Ivan Liang MD Unavailable Encounters Date Type Department Care Team Description 02/08/2025 Orders Only [facility] [address] [place] [address] Medical Office Building [address], [address] [place] [address] Monique Delgado RN 02/08/2025 Documentation [facility] [address] [place] [address] Medical Office [address], [address] [place] [address] Monique Delgado RN adding colon to 02/21/25 procedure 02/07/2025 Orders Only [facility] [address] [facility] 12th [place] [address] [place] [address] Rose Negron MD Abnormal CT scan, gastrointestinal tract (Primary Dx) 02/06/2025 Telephone [facility] [address] [place] [address] Medical Office [address], [address] [place] [address] Monique Delgado, KIET AC Hold recommendations 01/19/2025 Telephone [facility] [address] [facility] [address] [place] [address] Magda Brooks RN 01/19/2025 Telephone [facility] [address] [place] [address] Medical Office [address], [address] [place] [address] Abena Lam, KIET GI Preprocedure; Scheduling Testing/Treatment; AC hold recs 01/16/2025 Telephone [facility] [address] [place] [address] Medical Office [address] [place] [address] Abena Lam, KIET Scheduling Testing/Treatment; Unsuccessful Phone Call 2 01/16/2025 Telephone [facility] [address] [place] [address] Katharine Bee, KIET 01/16/2025 Telephone [facility] [address] [place] [address] [place] [address] [place] [address] Katharine Carty 01/12/2025 Telephone [facility] [address] [place] [address] Medical Office [address] [place] [address] Abena Lam, KIET Scheduling Testing/Treatment 01/12/2025 Orders Only [facility] [address], [place] [phone] Say Davila MD PhD Gastroesophageal reflux disease, unspecified whether esophagitis present (Primary Dx) 01/09/2025 Telephone [facility] [facility] 12th [place] [address] [place] [address] Marah Byrnes RMA PRE PROCEDURE ASSESSMENT 01/09/2025 Orders Only [facility] [address] [place] [address] 12th [place] [address] [place] [phone] Forest Catherine MD Esophageal dysphagia (Primary Dx); Gastroesophageal reflux disease with esophagitis without hemorrhage 01/06/2025 Orders Only [facility] - [facility]vasive Surgery [address] [facility] 12th Floor, [place] [address] Say Davila MD PhD Dysphagia, unspecified type (Primary Dx) 01/03/2025 Orders Only [facility]) - [facility]vasive Surgery [address] [facility] 12th Floor, [place] [address] Say Davila MD PhD Gastroesophageal reflux disease, unspecified whether esophagitis present (Primary Dx) 11/25/[address] [facility] [address] [place] [address] Julia Wyman RN from Last 3 Months Allergies Active Allergy [...] 09/03/2023 Assessment & Plan (09/17/2023 9:54 AM WIRELESS INTERNET INSTALLER): Diet as tolerates. Continue bowel regimen if needed to avoid straining. No submerging incision for 1 more week. Light duty for another 2 weeks. Patient will call us back with any further questions or concerns. Assessment & Plan (09/03/2023 8:54 AM WIRELESS INTERNET INSTALLER): I will discuss her case with GI. [...] (09/10/2022): Added automatically from request for surgery [id number] Cyclical vomiting 09/05/2022 Gastritis 09/05/2022 Gastroesophageal reflux [...] 08/13/2021 Assessment & Plan (08/13/2021 9:33 AM WIRELESS INTERNET INSTALLER): Pt complains of pain with urination. Pt also complains of suprapubic pain. Plan - Urine analysis TIA (transient ischemic attack) 08/11/2021 Assessment & Plan (08/13/2021 9:29 AM WIRELESS INTERNET INSTALLER): Sarahy Gill 51-year-old female presenting with left [...] mg Assessment & Plan (08/12/2021 6:00 PM WIRELESS INTERNET INSTALLER): Sarahy A Dellarosa 51-year-old female presenting with left facial droop [...] recommendations Assessment & Plan (08/09/2021 6:14 PM WIRELESS INTERNET INSTALLER): Patient has a history of IBS with [...] agitation/anxiety Assessment & Plan (08/13/2021 9:30 AM WIRELESS INTERNET INSTALLER): Currently mood at baseline. Continue home med Celexa Assessment & Plan (08/12/2021 5:53 PM WIRELESS INTERNET INSTALLER): Currently mood at baseline. Continue home med Celexa Assessment & Plan (08/09/2021 6:30 PM WIRELESS INTERNET INSTALLER): Per patient has a history of bipolar depressive type Stable at this time Not currently on any medication Patient denies any suicidal homicidal ideation Intussusception intestine 08/09/2021 Assessment & Plan (08/09/2021 6:36 PM WIRELESS INTERNET INSTALLER): 08/08/2021 CT abdomen/pelvis with contrast: Possible cystitis, [...] q.day Assessment & Plan (08/13/2021 9:29 AM WIRELESS INTERNET INSTALLER): Blood pressure has been under control Metoprolol restarted Assessment & Plan (08/12/2021 5:49 PM WIRELESS INTERNET INSTALLER): Blood pressure has been under control Metoprolol has been on hold-to allow for permissive hypertension for the next 24 hours, will restart tomorrow Assessment & Plan (08/09/2021 6:31 PM WIRELESS INTERNET INSTALLER): Have reviewed 24 hour blood pressures and [...] consult: Assessment & Plan (08/09/2021 6:12 PM WIRELESS INTERNET INSTALLER): CT abdomen pelvis with contrast at [facility] yesterday showed intussusception CT abdomen pelvis with contrast at [facility]: Showed resolution of intussusception Patient has [...] monitor Assessment & Plan (08/13/2021 9:29 AM WIRELESS INTERNET INSTALLER): Currently in sinus rhythm. Eliquis on hold will resume on August 15. Continue with flecainide Metoprolol restarted Assessment & Plan (08/12/2021 5:54 PM WIRELESS INTERNET INSTALLER): Currently in sinus rhythm. Eliquis on hold will resume on August 15. Continue with flecainide Metoprolol on hold will resume tomorrow Assessment & Plan (08/09/2021 6:18 PM WIRELESS INTERNET INSTALLER): No acute events since admission Patient on Eliquis Metoprolol for rate control with hold parameters Will continue to monitor Essential tremor 10/12/2018 Assessment & Plan (08/13/2021 9:30 AM WIRELESS INTERNET INSTALLER): B/l hand with tremor - no changes in strength Assessment & Plan (08/09/2021 6:30 PM WIRELESS INTERNET INSTALLER): Patient reports after waking up had increase [...] consult Assessment & Plan (08/13/2021 9:30 AM WIRELESS INTERNET INSTALLER): Currently in no acute exacerbation. -continue Bentyl Assessment & Plan (08/12/2021 5:47 PM WIRELESS INTERNET INSTALLER): Currently in no acute exacerbation. -continue Bentyl Assessment & Plan (08/09/2021 6:15 PM WIRELESS INTERNET INSTALLER): Patient on Bentyl Monitoring electrolytes Assessment & [...] ibs-d. Will get all the records from [facility] and then regroup to discuss possible treatment options. Orthostatic dizziness 09/16/2016 Palpitations 07/29/2016 Migraine headache 07/29/2016 Assessment & Plan (12/18/2021 4:59 PM CDT): Started home Topamax Assessment & Plan (08/09/2021 6:17 PM WIRELESS INTERNET INSTALLER): Patient not complaining of headache or migraines [...] In the past 12 months has e [employer], gas, oil, or water [employer] threatened to shut off services in your [...] often do you attend chur ch or jew services? Never 09/09/2023 Do you belong to [...] place to sleep or slept in a prison (including now)? No 09/09/2023 Personal Safety Answer Date Recorded Have you ever been in or are you currently in a harmful physical or emotional relationship or is someone making you feel afraid or unsafe? Denies 02/08/2024 Comments No Sex and Gender Information Value Date Recorded Sex Assigned at Not on file Legal Sex Female 10:06 AM WIRELESS INTERNET INSTALLER Gender Identity Female 06/17/2024 7:02 AM CDT [...] Description 02/21/2025 1:00 PM CDT Hospital Encounter [facility] [place] [address] [facility] [address] [place] [address] Marv Earl MD [address] [address] 02/21/2025 1:00 PM CDT - 02/21/2025 1:30 PM CDT Surgery [facility] [place] [address] [address] [address] Marv Earl MD [address] [address] EGD/EndoFLIP/YI/ Colon Scheduled Procedures Name Priority Associated [...] mammogram, encounter for COLONOSCOPY 10/29/2022 7:59 AM WIRELESS INTERNET INSTALLER from Last 3 Months or Most Recently [...] nal Result * COLONOSCOPY (10/29/2022 7:59 AM WIRELESS INTERNET INSTALLER) Anatomical Region Laterality Modality Other Narrative Procedure Note Germania Sorto MD - 10/29/2022 7:59 AM CST [facility] Patient Name: Sarahy Gill Procedure Date: 10/29/2022 7:59 AM Date of : 1970 Admit Type: Outpatient Age: 52 Gender: Female Attending MD: Germania Sorto M.D. Room: [facility] ENDOSCOPY ROOM 1 Note Status: [...] under direct vision. The Pediatric Colonoscope PCF-H190L [id number] was introducedthrough the anus and advanced to [...] 7:59 AM Procedure Code(s): --- Professional --- 47556, Colonoscopy, flexible; with biopsy, single or multiple Diagnosis Code(s): --- Professional --- K64.8, Other hemorrhoids D12.3, Benign neoplasm of transverse colon (hepatic flexure orsplenic flexure) K52.9, Noninfective gastroenteritis and colitis, unspecified CPT copyright 2020 [employer]. All rights reserved. The codes documented in this report are preliminary and upon chain saw operator reviewmay be revised to meet current compliance requirements. 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 ROLL[employer] MILL OPERATOR Nurse Practitioner 02/07/20 Tico Burton MD Surgeon General Surgery 08/09/21 Ivan Liang MD Consulting Physician General Surgery 09/09/23
--- OUTSIDE RECORDS SUMMARY | 2025-02-12 04:57 | XMS_ITS | Encounter Summary ---
Author Organization [facility] Address [address] [place] [address] Care Team Providers Care City Editor Name Role Phone Mere Landa NP Unavailable [phone] Parmjit Dai MD Primary Care Provider [phone] Tico Burton MD Unavailable [phone] Ivan Liang MD Unavailable Reason for Visit * Reason Onset Date Comments Scheduling Appointments 06/19/2021 confirmi ng mammogram appt Encounter Details Date Type Department Care Team (Late st Contact Info) Description 06/19/2021 Telephone [facility] [address] [place] [address] Cheryl Trejo RT Scheduling Appointments (confirming mammogram [...] on file Legal Sex Female 10:06 AM CURATOR Gender Identity Female 06/17/2024 7:02 AM CDT Sexual Orientation Not on file documented as of this encounter Plan of Treatment Upcoming Encounters Date Type Department Care Team (Latest Contact Info) Description 02/21/2025 1:00 PM CDT Hospital Encounter [facility] [place] [address] [place] [address] Marv Earl MD [address] [place] [address] 02/21/2025 1:00 PM CDT - 02/21/2025 1:30 PM CDT Surgery [facility] [place] [address] [place] [address] Marv Earl MD [address] [place] [address] EGD/EndoFLIP/YI/ Colon Scheduled Procedures Name Priority Associated [...] COVID: Suspected 07/06/2022 07/06/2022 07/06/2022 3:52 AM CURATOR COVID: Suspected 08/18/2022 08/18/2022 08/18/2022 12:59 AM CURATOR COVID: Suspected 09/19/2023 09/19/2023 09/19/2023 11:01 AM CURATOR C. difficile suspected 07/21/2024 07/21/202407/22 3:05 AM CURATOR documented as of this encounter Care Teams City Editor Relationship Specialty Start Date End Date Parmjit Dai MD PCP - General 12/31/20 Mere Landa V., CARLA Nurse Practitioner 02/07/20 Tico Burton MD Surgeon General Surgery 08/09/21 Ivan Liang MD Consulting Physician General Surgery 09/09/23 documented as of this encounter
--- OUTSIDE RECORDS SUMMARY | 2025-02-12 04:58 | XMS_ITS | Clinical Summary ---
Author Organization [facility] Address [address] [place] [address] Care Team Providers Care Welding Setter Name Role Phone Mandeep Pennington DO Primary Care Provider [phone] Source Comments [facility],non-owned Affiliates and Associated Physician Practices is amultiple site organization consisting of ambulatory clinics and hospital sitesin [place], [place], [place] and [place]. This disclosure is being madepursuant to the Care Everywhere program and may not contain all information available regarding this patient. Last updated 18.[facility] Allergies Active Allergy Reactions Criticality Noted Date [...] (AGES 45-75) - COLON CA SCREENING 1970 CT COLONOGRAPHY [...] history exists MAMMOGRAM 11/10/2025 11/11/2023, 10/29, 05/20/2022 COLON MONITORING 10/29/2032 10/29/2022 COLONOSCOPY - COLON CA SCREENING 10/29/2032 10/29/2022 [...] - 06/07/2024 7:12 AM CDT Performed at: [facility] [id number] Pulling Unit Operator: Edmundo Dias PhD, Phone: [phone] Rolando Castro DO LAB - CHEMISTRY ORDERABLES Final Result Performing Organization Address City/State/[facility] Co de Phone Number [facility] INSURANCE BILL [address] [place] [address] from Last 3 Months or Most Recently Relevant to Health Maintenance Insurance [employer] [facility] MANAGED MEDICARE ADV Care Teams Welding Setter Relationship Specialty Start Date End Date Mandeep Pennington DO [address] [place] [address] PCP - General Internal Medicine 06/30/24
--- OUTSIDE RECORDS SUMMARY | 2025-02-12 04:58 | XMS_ITS | Clinical Summary ---
Author Organization [facility] Address [address] [place] [address] Phone Care Team Providers Care Automotive Service Porter Name Role Phone Parmjit Dai MD Primary Care Provider [phone] Jazmine Kulkarni MD Unavailable [phone] Mir Spencer MD Unavailable Allergies Active Allergy [...] Comments Blood Pressure 96/66 10/29/2023 8:05 AM SKI TOP TRIMMER Pulse 52 10/29/2023 8:05 AM SKI TOP TRIMMER Temperature 36.9 C (98.4 F) 10/16/2023 8:53 AM SKI TOP TRIMMER Respiratory Rate 20 10/29/2023 8:05 AM SKI TOP TRIMMER Oxygen Saturation 100% 10/16/2023 8:53 AM SKI TOP TRIMMER Inhaled Oxygen Concentration - - Weight 56.7 kg (125 lb) 10/29/2023 8:05 AM SKI TOP TRIMMER Height 162.6 cm (5' 4) 10/29/2023 8:05 AM SKI TOP TRIMMER Body Mass Index 21.46 10/29/2023 8:05 AM SKI TOP TRIMMER Plan of Treatment Health Maintenance Due Date Last Done Comments Hepatitis C Virus (HCV) Screening 1970 Hepatitis B Immunization (1 of 3 - 19+ 3-dose series) 1987 Pap Smear 1989 Cervical Cancer Screening (CCS) 1998 HPV/Cotest 1998 Cologuard 2013 Pneumococcal Immunization (50+ years) (1 of 1 [...] (Adult) (1 - 1-dose 75+ series) 2043 DTaP/Tdap/Td Immunization Discontinued 07/31/2017 Human Papillomavirus (HPV) Immunization Aged Out No longer eligible based on patient's age to complete this topic Meningococcal Immunization (ACWY) Aged Out No longer eligible based on patient's age to complete this topic Rotavirus Immunization Aged Out No lo nger eligible based on patient's age to complete this topic Insurance MEDICAID [place] MEDICARE C [facility] Care Teams Automotive Service Porter Relationship Specialty Start Date End Date Parmjit Dai MD [address] [place] [address] [address] [place] [address] PCP - General Family Medicine 05/21/22 Jazmine Kulkarni MD [address] [place] [address] [address] [place] [address] Family Medicine 05/21/22 Mir Spencer MD [address] [place] [address] Consulting Physician Urology 10/29/23
[2025-02-12 04:59] VITALS: BP 131/84; PULSE 73; RESP 16; TEMP 36.4; O2SAT 100
[2025-02-12] MEDS: PANTOPRAZOLE SODIUM IV 40 MG VIAL IV PUSH (05:09)
[2025-02-12 05:14] LABS: BEDSIDEPREGUCG Negative (Negative)
[2025-02-12] MEDS: droPERidol 5 MG/2 ML VIAL IV PUSH (05:15)
[2025-02-12] MEDS: MAG HYDROX/AL HYDROX/SIMETH 30 ML UDC PO (05:15)
[2025-02-12 05:16] LABS: Basophils Percent Auto 0.2 % (0.2-1.2); Eosinophils Percent Auto 0.1 % (0-4.4); Hematocrit 41.5 % (37.0-47.0); Immature Granulocyte Absolute 0.04 K/mm3 (0.00-0.031); Immature Granulocyte Percent A 0.4 % (0-0.5); Lymphocytes Absolute Auto 1.64 K/mm3 (0.9-3.2); Lymphocytes Percent Auto 15.7 % (18.3-44.2); Mean Corpuscular HGB Conc 31.3 g/dl (32-36); Mean Corpuscular Hemoglobin 29.3 pg (26-34); Mean Corpuscular Volume 93.5 fl (80-100); Monocytes Absolute Auto 0.6 K/mm3 (0.1-0.6); Monocytes Percent Auto 5.8 % (2.6-8.5); Neutrophils Absolute Auto 8.1 K/mm3 (1.3-6.7); Neutrophils Percent Auto 77.8 % (45.5-73.1); Platelet Count Result 373 k/mm3 (150-375); Red Blood Count 4.44 M/mm3 (4.2-5.4); Red Cell Distribution Width 13.2 % (11.5-14.5); White Blood Count 10.4 K/mm3 (4.5-10.0)
[2025-02-12 05:26] LABS: Alanine Aminotransferase 24 U/L (6-35); Albumin Level 5.1 g/dL (3.5-5.1); Alkaline Phosphatase 90 U/L (38-126); Anion Gap 15 mmol/L (4-12); Aspartate Amino Transferase 39 U/L (14-36); Bilirubin,Total 0.3 mg/dL (0.2-1.3); Blood Urea Nitrogen 8 mg/dL (7-17); Calcium 9.8 mg/dL (8.4-10.2); Carbon Dioxide 24 mmol/L (22-30); Chloride 103 mmol/L (98-107); Estimated CRCL calculation 60 ml/min; Estimated Glomerular Filt Rate > 60; Glucose 126 mg/dL (65-110); Lipase 260 U/L (23-300); Potassium 3.5 mmol/L (3.4-5.0); Sodium 142 mmol/L (137-145); Total Protein 8.8 g/dL (6.3-8.2)
[2025-02-12 05:27] LABS: Lactic Acid Reflex 2.1 mmol/L (0.7-2.0)
[2025-02-12 05:41] LABS: Add Urine Microscopic? YES; Appearance Urine Clear (Clear); Bacteria Urine None Seen /hpf; Bilirubin Urine Negative (Negative); Blood Urine Negative (Negative); Color Urine Yellow (Yellow); Glucose Urine UA Negative (Negative); Ketones Urine Negative (Negative); Leukocyte Esterase Ur 2+ LEU/UL (Negative); Need Manual Microscopic Reviewed; Nitrate Urine Negative (Negative); Non Pathogenic Casts 0-2; Protein Urine Negative (Negative); Specific Grav Ur 1.012 (1.001-1.035); Squamous Epithelial Cell Urine Occasional /hpf (Few)
--- NOTE | 2025-02-12 05:42 | ED.ABDPAIN ---
HPI - Abdominal Pain General Chief Complaint: Abdominal Pain Stated Complaint: abd pain, n/v Time Seen by Provider: 02/12/25 04:56 History of Present Illness HPI narrative: Patient with history of cyclic vomiting syndrome, chronic abdominal pain, presents here with abdominal pain, nausea, vomiting, diarrhea since last night, they feel the same as her usual symptoms, when she was here a week and half ago and a few weeks ago, she has colonoscopy scheduled soon with her GI doctor. Pain to epigastric abdomen Related Data Home Medications ?Medication ?Instructions ?Recorded ?Confirmed ?Last Taken ?Type aluminum-mag hydroxide-simethicone 10 ml PO QID PRN Acid Reflux 05/28/20 01/18/25 07/23/24 History 400 mg-400 mg-40 mg/5 mL oral susp (Mylanta Maximum Strength) simethicone 125 mg chewable tablet 125 mg PO QID PRN Abdominal 05/28/20 01/18/25 04/24/21 21:00 History (Gas-X Extra Strength) Discomfort apixaban 5 mg tablet (Eliquis) 5 mg PO BID 10/23/23 01/18/25 07/30/24 History famotidine 20 mg tablet 20 mg PO DAILY PRN Acid Reflux 10/23/23 01/18/25 07/30/24 History metoprolol succinate 25 mg 25 mg PO DAILY 10/23/23 01/18/25 07/30/24 History tablet,extended release 24 hr flecainide 100 mg tablet 100 mg PO Q12H 10/29/23 01/18/25 07/30/24 History pantoprazole 40 mg tablet,delayed 40 mg PO BID 01/04/24 01/18/25 07/30/24 History release buspirone 10 mg tablet 10 mg PO BID 07/07/24 01/18/25 07/30/24 History Allergies Allergy/AdvReac Type Severity Reaction Status Date / Time prochlorperazine AdvReac Severe Confusion Verified 02/12/25 05:04 metoclopramide (From Reglan) AdvReac Intermediate anxiety Verified 02/12/25 05:04 azithromycin AdvReac Unknown STOMACH Verified 02/12/25 05:04 UPSET promethazine (From Phenergan) AdvReac Jittery Verified 02/12/25 05:04 Review of Systems Review of Systems: All systems reviewed & are unremarkable except as noted in HPI and below PMFSH Past Medical History Medical History Foot pain, right Achilles tendon contracture, right Chondromalacia of right knee Anemia History of TIA (transient ischemic attack) Irritable bowel syndrome with constipation History of hyperlipidemia History of atrial fibrillation History of gastroesophageal reflux (GERD) Adenomatous colon polyp Atrial fibrillation Arthritis GERD (gastroesophageal reflux disease) Celiac disease Diverticulosis Anxiety and depression Neuropathy Migraine headache Surgical History Surgical History History of endometrial ablation Hx of hernia repair Hx of laparoscopy Hx of dilation and curettage History of colonoscopy with polypectomy (03/2021) And repeat colonoscopy 2022 Status post lateral meniscectomy of right knee (07/2024) Hx of emergency section History of appendectomy History of delivery History of tubal ligation History of [place] fundoplication History of cholecystectomy Family History Family History Mother Family history of elevated blood lipids Family history of arthritis Sibling Family history of arthritis Grandparent Cerebrovascular accident Family history of cardiovascular disease Hypertension Diabetes mellitus Other Heart disease Acute myocardial infarction Father Alcoholism Mother Alcoholism Depression Anxiety Grandparent Throat cancer Cerebrovascular accident Heart problem Social History Social History Social History: She lives at home with her of 6 years. This is her 3rd marriage. She had 6 children. One son and 5 daughters. She smoked half pack of cigarettes per day since she was 14 years old but switched to vaping nicotine several years ago. She rarely drinks alcohol and only minute amounts. She uses marijuana daily. Code status: Full code (she would not want to be on the ventilator long-term or if she had no quality of life ) Surrogate decision maker: Smoking packs per day: 0.5 Smoking cigarettes per day: 10.0 Years smoked: 15 Smoking pack-years: 7.50 Smoking status: Current every day smoker Tobacco type: e-cigarettes/vaping Second hand tobacco smoke exposure: No Additional smoking assessment comments: Currently vapes. Alcohol intake: never Substance use: current Substance use type: marijuana Other substance usage details: Daily Last use: 07/30/24 Do You Feel Safe in your Home?: Yes Lack of Transportation: No Lack of Food: Never True Current Housing: Decline to Answer Concerned About Future Housing: Decline to Answer Difficulty Paying Gas/Electric Bills: Decline to Answer Difficulty Paying for Meds: Decline to Answer Currently Unemployed: Decline to Answer Education: Decline to Answer Difficulty w/ Childcare or Family Care: Decline to Answer Living arrangements: with family Occupation/Education: other Additional occupation/education comments: disabled Gender identity (if verbalized by the patient): Female Sexual Orientation (if Verbalized by the Patient): Straight or Heterosexual Spiritual care concerns: No Exam Narrative: EXAMINATION OF ORGAN SYSTEMS/BODY AREAS: Constitutional: Vital signs per nursing GENERAL: Appears uncomfortable, holding emesis bag HEAD: Normal with no signs of head trauma. EYES: EOMI, conjunctiva normal ENT: Hearing grossly intact LUNGS: Nonlabored breathing. HEART: [Regular rate and rhythm] ABD: [Soft], slightly tender to palpation epigastric abdomen EXT: Normal range of motion SKIN: [No rashes or lesions.] NEURO: [Alert and oriented x 3. No gross focal sensory or strength deficits.] PSYCH: Normal affect Course Vital Signs Vital signs: Vital Signs Temperature 97.5 F L 02/12/25 04:59 Pulse Rate 73 02/12/25 04:59 Respiratory Rate 16 02/12/25 04:59 Blood Pressure 131/84 02/12/25 04:59 Pulse Oximetry 100 02/12/25 04:59 Oxygen Delivery Room Air 02/12/25 04:59 Temperature 97.5 F L 02/12/25 04:59 Pulse Rate 73 02/12/25 04:59 Respiratory Rate 16 02/12/25 04:59 Blood Pressure 131/84 02/12/25 04:59 Pulse Oximetry 100 02/12/25 04:59 Oxygen Delivery Room Air 02/12/25 04:59 MDM - Abdominal Pain MDM Narrative Medical decision making narrative: 1) Differential diagnosis: Colitis including C diff colitis given recent antibiotic course, cyclic vomiting, gastritis/esophagitis; less likely ischemic bowel without severe pain or abnormal vital signs or tenderness and patient already anticoagulated 2) Comorbidities: AFib on blood thinners, cyclic vomiting syndrome 3) External notes reviewed: Prior PCP notes 4) History sources independently obtained from: n/a 5) Discussion of management with: 6) Independent interpretation of: 7) Diagnostic tests or therapies considered but not ordered: We discussed obtaining another CT however patient just had 1 about 10 days ago symptoms are not new or different from today so with shared decision-making, patient declines repeat CT today 8) Social determinants of health: 9) Shared decision making: Given patient's intolerance of several antiemetics, I did try droperidol, also gave Maalox, Protonix, and on re-evaluation, patient states she has actually feeling quite a bit better. Will give additional IV fluids and sucralfate. Given her multiple rounds of antibiotics and diarrhea I did put an order for C diff. Urinalysis with some WBCs and leukocyte esterase however there is no bacteria seen, patient has no dysuria or suprapubic or flank pain, and she has already finished a course of Cipro yesterday so at this point I will not start additional antibiotics, but will send culture. On repeat evaluation, no new abdominal tenderness, no more nausea vomiting, symptoms improved. She has close follow-up with GI and is comfortable with outpatient management, so I have let her know she return to the emergency room for any further issues. Lab Data 02/12/25 05:10 02/12/25 05:10 Labs: Lab Results 02/12/25 02/12/25 Range/Units 05:10 05:12 WBC 10.4 H (4.5-10.0) K/mm3 RBC 4.44 (4.2-5.4) M/mm3 Hgb 13.0 (12.0-15.0) g/dL Hct 41.5 (37.0-47.0) % MCV 93.5 (80-100) fl MCH 29.3 (26-34) pg MCHC 31.3 L (32-36) g/dl RDW 13.2 (11.5-14.5) % Plt Count 373 (150-375) k/mm3 MPV 10.0 (7.4-10.4) fl Immature Gran % (Auto) 0.4 (0-0.5) % Neut % (Auto) 77.8 H (45.5-73.1) % Lymph % (Auto) 15.7 L (18.3-44.2) % [place] % (Auto) 5.8 (2.6-8.5) % Eos % (Auto) 0.1 (0-4.4) % Baso % (Auto) 0.2 (0.2-1.2) % Lymph # (Auto) 1.64 (0.9-3.2) K/mm3 [place] # (Auto) 0.6 (0.1-0.6) K/mm3 Eos # (Auto) 0.0 (0-0.3) K/mm3 Baso # (Auto) 0.0 (0.0-0.1) K/mm3 Abs Immat Gran (auto) 0.04 H (0.00-0.031) K/mm3 Absolute Neuts (auto) 8.1 H (1.3-6.7) K/mm3 Absolute Nucleated RBC 0.000 (0.0-0.012) K/mm3 Nucleated RBC % 0.0 (0.0-0.2) % Sodium 142 (137-145) mmol/L Potassium 3.5 (3.4-5.0) mmol/L Chloride 103 (98-107) mmol/L Carbon Dioxide 24 (22-30) mmol/L Anion Gap 15 H (4-12) mmol/L BUN 8 (7-17) mg/dL Creatinine 0.79 (0.7-1.0) mg/dL Estim Creat Clear Calc 60 ml/min Estimated GFR > 60 (59 - ) Glucose 126 H (65-110) mg/dL Lactic Acid 2.1 H (0.7-2.0) mmol/L Calcium 9.8 (8.4-10.2) mg/dL Total Bilirubin 0.3 (0.2-1.3) mg/dL AST 39 H (14-36) U/L ALT 24 (6-35) U/L Alkaline Phosphatase 90 (38-126) U/L Total Protein 8.8 H (6.3-8.2) g/dL Albumin 5.1 (3.5-5.1) g/dL Lipase 260 (23-300) U/L Urine Color Yellow (Yellow) Urine Appearance Clear (Clear) Urine pH 8.0 (5.0-9.0) Ur Specific [place] 1.012 (1.001-1.035) Urine Protein Negative (Negative) mg/dL Urine Glucose (UA) Negative (Negative) mg/dL Urine Ketones Negative (Negative) mg/dL Ur Blood (Man) Negative (Negative) Urine Nitrate Negative (Negative) Urine Bilirubin Negative (Negative) Urine Urobilinogen 1.0 (<2.0) mg/dL Add Ur Microanalysis Reviewed Leukocyte Esterase Rfl 2+ H (Negative) NEHA/UL Urine RBC 3-5 H (0-2) /hpf Urine WBC 11-20 H (0-3) /hpf Ur Squamous Epith Cells Occasional (Few) /hpf Urine Bacteria None seen /hpf Urine Casts 0-2 POC Urine HCG, Qual Negative (Negative) Discharge Plan Discharge Clinical Impression: Abdominal pain, epigastric, Nausea, vomiting, and diarrhea Patient Disposition: Home Condition: Stable Instructions: Acute Nausea and Vomiting (ED), Abdominal Pain (ED) Additional Instructions: Please follow up with your doctor; you can always return for any further issues. Patient Language: [place] Prescriptions: No Action metoprolol succinate 25 mg tablet extended release 24 hr 25 mg PO DAILY famotidine 20 mg tablet 20 mg PO DAILY PRN (Reason: Acid Reflux) Eliquis 5 mg tablet 5 mg PO BID flecainide 100 mg tablet 100 mg PO Q12H pantoprazole 40 mg tablet,delayed release (DR/EC) 40 mg PO BID buspirone 10 mg tablet 10 mg PO BID loperamide [Anti-Diarrheal (loperamide)] 2 mg capsule 2 mg PO Q6H PRN (Reason: loose stool) Qty: 14 0RF dicyclomine 20 mg tablet 20 mg PO TID PRN (Reason: abdominal pain) Qty: 14 0RF ondansetron 4 mg tablet,disintegrating 4 mg PO Q8H PRN (Reason: nausea and vomiting) Qty: 20 0RF simethicone [Gas-X Extra Strength] 125 mg Tablet,Chewable 125 mg PO QID PRN (Reason: Abdominal Discomfort) Patient Comments: Patient states that she takes one between meals. alum-mag hydroxide-simeth [Mylanta Maximum Strength] 400-400-40 mg/5 mL Suspension 10 ml PO QID PRN (Reason: Acid Reflux) Patient Comments: Patient states she takes in between meals and before bed. dicyclomine 20 mg tablet 20 mg PO TID PRN (Reason: abdominal pain) Qty: 14 0RF amitriptyline 10 mg tablet See Rx Instructions .ROUTE .COMPLEX Qty: 30 5RF Dose Instruction: TAKE 1 TABLET BY MOUTH EVERYDAY AT BEDTIME Rx Instructions: TAKE 1 TABLET BY MOUTH EVERYDAY AT BEDTIME ondansetron 4 mg tablet,disintegrating 4 mg PO Q8H PRN (Reason: nausea and vomiting) Qty: 20 0RF fluconazole 150 mg tablet 150 mg PO ONCE Qty: 2 0RF Rx Instructions: May repeat after 72 hours if needed Follow-up/Referrals: Mandeep Pennington, [Primary Care Provider] -
[2025-02-12] MEDS: SUCRALFATE 1 GM TABLET PO (05:50)
[2025-02-12] MEDS: LACTATED RINGERS 1,000 ML 999 ML IV CONT (05:50)
[2025-02-12 06:11] VITALS: BP 106/51; PULSE 68; RESP 17; O2SAT 98
[2025-02-12 07:13] LABS: Reflex Lactic Acid Yes or No Add Lactic
== END 2025-02-12 06:47 | disposition home or self-care (01) ==
PROVIDERS: Emergency Provider Emergency Medicine; PCP Internal Medicine
DX: R11.2 Nausea with vomiting, unspecified (principal); R19.7 Diarrhea, unspecified; R10.9 Unspecified abdominal pain; I48.91 Unspecified atrial fibrillation; E78.5 Hyperlipidemia, unspecified; K21.9 Gastro-esophageal reflux disease without esophagitis; K90.0 Celiac disease; K58.1 Irritable bowel syndrome with constipation; F41.9 Anxiety disorder, unspecified; F32.A Depression, unspecified; F17.290 Nicotine dependence, other tobacco product, uncomplicated; Z86.0101 Personal history of adenomatous and serrated colon polyps; Z86.73 Personal history of transient ischemic attack (TIA), and cerebral infarction without residual deficits; Z86.2 Personal history of diseases of the blood and blood-forming organs and certain disorders involving the immune mechanism; Z90.49 Acquired absence of other specified parts of digestive tract; Z79.01 Long term (current) use of anticoagulants; Z79.899 Other long term (current) drug therapy
CPT/HCPCS: 36415; 80053; 81001; 81025; 83605; 83690; 85025; 87086; 96361; 96374; 96375; 99284; A9270; J1790; J2470; J7120

== ENCOUNTER 2025-03-07 23:27 | Emergency (ER) | payer OTHER, MEDICARE, SELFPAY ==
--- NOTE | ~2025-03-07 | CT_ITS ---
CT of the Abdomen and Pelvis: Indication: Abdominal pain Technique: 2.5 mm axial scans were obtained through the abdomen and pelvis following intravenous adm inistration of 100 cc of Omnipaque 350. Dose reduction technique was used on this scan by utilizing a utomated exposure control and iterative reconstruction technique. The dose-length product (DLP) was 2 56.30 mGy-cm. COMPARISON: 02/01/2025 Findings: Scans through the lung bases are unremarkable. The liver, spleen, pancreas, adrenals and kidneys are within normal limits. Cholecystectomy clips are present. No evidence of aortic aneurysm. No lymphadenopathy. No bowel obstruction or bowel wall thickening. There is no evidence to suggest acute appendicitis. Images through the pelvis were performed. Urinary bladder unremarkable. No pelvic mass seen. No ascit es. Impression: No significant abnormalities seen. Reviewed, dictated and finalized at [facility]. Impression: No significant abnormalities seen.
--- OUTSIDE RECORDS SUMMARY | 2025-03-07 23:30 | XMS_ITS | Clinical Summary ---
Author Organization [facility] Care Team Providers Care Hip Hop Performers Name Role Phone Mere Landa NP Unavailable [phone] Tico Burton MD Unavailable [phone] Ivan Liang MD Unavailable Mandeep Pennington DO Primary Care Provider [phone] Allergies Active Allergy Reactions Criticality Noted Date [...] mouth nightly at bedtime 02/03/20 24 Active linaCLOtide (LINZESS) 72 mcg capsuleIndicati ons:Constipatio n Predominant Irritable Bowel Syndrome Take 1 capsule (72 mcg total) by mouth daily 30 capsule 2 02/19/20 24 Active SUMAtriptan (IMITREX) 6 mg/0.5 mL injection 01/04/20 24 Active busPIRone (BUSPAR) 10 mg tabletIndicatio ns:Generalized Anxiety Disorder Take 1 tablet (10 mg total) by mouth 2 (two) times a day 60 tablet 2 01/17/20 25 025 Active acetaminophen (TYLENOL) 500 mg tablet Take 1 tablet (500 mg total) by mouth every 6 (six) hours as needed 07/18/[address] (PROTONIX) 40 mg EC tablet Take 1 tablet (40 mg total) by mouth 2 (two) times a day before breakfast and dinner 60 tablet 1 02/14/20 25 025 Active ondansetron (ZOFRAN) 8 mg tablet Take 0.5-1 tablets (4-8 mg total) by mouth every 6 (six) hours as needed for nausea or vomiting 20 tablet 02/18/20 25 Active ondansetron (ZOFRAN) 8 mg tablet Take 0.5-1 tablets (4-8 mg total) by mouth every 6 (six) hours as needed for nausea or vomiting 20 tablet 3 02/16/20 24 025 Discontinu ed(Reorder ) pantoprazole DR (PROTONIX) 40 mg EC tablet Take 1 tablet (40 mg total) by mouth 2 (two) times a day before breakfast and dinner 60 tablet 1 09/02/19 25 025 Discontinu ed(Reorder ) polyethylene glycol [...] 09/03/2023 Assessment & Plan (09/17/2023 9:54 AM DYE BLENDER): Diet as tolerates. Continue bowel regimen if needed to avoid straining. No submerging incision for 1 more week. Light duty for another 2 weeks. Patient will call us back with any further questions or concerns. Assessment & Plan (09/03/2023 8:54 AM DYE BLENDER): I will discuss her case with GI. [...] (09/10/2022): Added automatically from request for surgery [id number] Cyclical vomiting 09/05/2022 Gastritis 09/05/2022 Gastroesophageal reflux [...] 08/13/2021 Assessment & Plan (08/13/2021 9:33 AM DYE BLENDER): Pt complains of pain with urination. Pt also complains of suprapubic pain. Plan - Urine analysis TIA (transient ischemic attack) 08/11/2021 Assessment & Plan (08/13/2021 9:29 AM DYE BLENDER): Sarahy Cardenas Meganelise 51-year-old female presenting with left facial droop [...] mg Assessment & Plan (08/12/2021 6:00 PM DYE BLENDER): Sarahy Mays 51-year-old female presenting with left [...] recommendations Assessment & Plan (08/09/2021 6:14 PM DYE BLENDER): Patient has a history of IBS with [...] agitation/anxiety Assessment & Plan (08/13/2021 9:30 AM DYE BLENDER): Currently mood at baseline. Continue home med Celexa Assessment & Plan (08/12/2021 5:53 PM DYE BLENDER): Currently mood at baseline. Continue home med Celexa Assessment & Plan (08/09/2021 6:30 PM DYE BLENDER): Per patient has a history of bipolar depressive type Stable at this time Not currently on any medication Patient denies any suicidal homicidal ideation Intussusception intestine 08/09/2021 Assessment & Plan (08/09/2021 6:36 PM DYE BLENDER): 08/08/2021 CT abdomen/pelvis with contrast: Possible cystitis, [...] q.day Assessment & Plan (08/13/2021 9:29 AM DYE BLENDER): Blood pressure has been under control Metoprolol restarted Assessment & Plan (08/12/2021 5:49 PM DYE BLENDER): Blood pressure has been under control Metoprolol has been on hold-to allow for permissive hypertension for the next 24 hours, will restart tomorrow Assessment & Plan (08/09/2021 6:31 PM DYE BLENDER): Have reviewed 24 hour blood pressures and [...] consult: Assessment & Plan (08/09/2021 6:12 PM DYE BLENDER): CT abdomen pelvis with contrast at [place] yesterday showed intussusception CT abdomen pelvis with contrast at [facility]: Showed resolution of intussusception Patient [...] monitor Assessment & Plan (08/13/2021 9:29 AM DYE BLENDER): Currently in sinus rhythm. Eliquis on hold will resume on August 15. Continue with flecainide Metoprolol restarted Assessment & Plan (08/12/2021 5:54 PM DYE BLENDER): Currently in sinus rhythm. Eliquis on hold will resume on August 15. Continue with flecainide Metoprolol on hold will resume tomorrow Assessment & Plan (08/09/2021 6:18 PM DYE BLENDER): No acute events since admission Patient on Eliquis Metoprolol for rate control with hold parameters Will continue to monitor Essential tremor 10/12/2018 Assessment & Plan (08/13/2021 9:30 AM DYE BLENDER): B/l hand with tremor - no changes in strength Assessment & Plan (08/09/2021 6:30 PM DYE BLENDER): Patient reports after waking up had increase [...] consult Assessment & Plan (08/13/2021 9:30 AM DYE BLENDER): Currently in no acute exacerbation. -continue Bentyl Assessment & Plan (08/12/2021 5:47 PM DYE BLENDER): Currently in no acute exacerbation. -continue Bentyl Assessment & Plan (08/09/2021 6:15 PM DYE BLENDER): Patient on Bentyl Monitoring electrolytes Assessment & [...] ibs-d. Will get all the records from [facility] and then regroup to discuss possible treatment options. Orthostatic dizziness 09/16/2016 Palpitations 07/29/2016 Migraine headache 07/29/2016 Assessment & Plan (12/18/2021 4:59 PM CDT): Started home Topamax Assessment & Plan (08/09/2021 6:17 PM DYE BLENDER): Patient not complaining of headache or migraines at this time Sumatriptan on hold Hypokalemia Encounters Date Type Department Care Team Description 02/24/2025 Results Follow-Up [facility] Gastroenterology [address] [place] [address] Marv Earl MD Surgical pathology 02/21/2025 1:12 PM CDT Anesthesia Event [facility] Digestive Disease [address] [place] [address] Dl Lerner MD 02/21/2025 1:00 PM CDT - 02/21/2025 1:30 PM CDT Surgery [facility] [place] [id number] [facility] [address] [place] [address] Marv Earl MD ESOPHAGEAL BALLOON DISTENSION STUDY DIAGNOSTIC WITH PROVOCATION 02/21/2025 10:42 AM CDT - 02/21/2025 11:59 PM CDT Hospital Encounter [facility] [place] [address] [facility] [address] [place] [address] Dysphagia, unspecified type Discharge Disposition: Discharge to home or self care 02/21/2025 10:42 AM CDT - 02/21/2025 2:32 PM CDT Hospital Encounter [facility] [place] [address] [facility] [address] [place] [address] Marv Earl MD Esophageal dysphagia; Gastroesophageal reflux disease with esophagitis without hemorrhage; Rectal bleeding Discharge Disposition: Discharge to home or self care 02/14/2025 Telephone [facility] Gastroenterology [address] [place] [address] 12th [place] [address] [place] [address] Rose Negron MD MRI/MRCP Order 02/13/2025 Telephone [facility] Gastroenterology [address] [place] [address] 12th [place] [address] [place] [address] Katharine Carty 02/08/2025 Orders Only [facility] Gastroenterology [address] [place] [address] Medical Office Building [address], [address] [place] [phone] Monique Delgado RN 02/08/2025 Documentation [facility] Gastroenterology [address] [place] [address] Medical Office [address] [place] [phone] Monique Delgado, KIET adding colon to 02/21/25 procedure 02/07/2025 Orders Only [facility] Gastroenterology [address] [place] [address] 12th [place] [address] [place] [address] Rose Negron MD Abnormal CT scan, gastrointestinal tract (Primary Dx) 02/06/2025 Telephone [facility] Gastroenterology [address] [place] [address] Medical Office [address], [address] [place] [phone] Monique Delgado, RN AC Hold recommendations 01/19/2025 Telephone [facility] [address] [facility] [address] [place] [address] Magda Brooks RN 01/19/2025 Telephone [facility] Gastroenterology [address] [place] [address] Medical Office [address] [place] [phone] Abena Lam, KIET GI Preprocedure; Scheduling Testing/Treatment; AC hold recs 01/16/2025 Telephone [facility] Gastroenterology [address] [place] [address] [address] [place] [address] Abena Lam, KIET Scheduling Testing/Treatment; Unsuccessful Phone Call 2 01/16/2025 Telephone [facility] Specialty Services [address] [place] [address] Katharine Bee RN 01/16/2025 Telephone [facility] Gastroenterology [address] [place] [address] [place] [address] [place] [phone] Katharine Carty 01/12/2025 Telephone [facility] Gastroenterology [address] [place] [address] Office [address], [address] [place] [address] Abena Lam, KIET Scheduling Testing/Treatment 01/12/2025 Orders Only [facility] Minimally Invasive Surgery [address] [place] [address] Floor, [address] [place] [id number] Say Davila MD PhD Gastroesophageal reflux disease, unspecified whether esophagitis present (Primary Dx) 01/09/2025 Telephone [facility] Gastroenterology [address] [place] [address] [place] [address] [place] [address] Marah Byrnes RMA PRE PROCEDURE ASSESSMENT 01/09/2025 Orders Only [facility] Gastroenterology [address] [place] [address] 12th [place] [address] [place] [phone] Forest Catherine MD Esophageal dysphagia (Primary Dx); Gastroesophageal reflux disease with esophagitis without hemorrhage 01/06/2025 Orders Only [facility]) [facility] Minimally Invasive Surgery [address] [facility] 12th [place], [place] [address] Say Davila MD PhD Dysphagia, unspecified type (Primary Dx) 01/03/2025 Orders Only [facility]) [facility] Minimally Invasive Surgery [address] [facility] 12th Floor, [place] [address] Say Davila MD PhD Gastroesophageal reflux disease, unspecified whether esophagitis present (Primary Dx) from Last 3 Months Immunizations Immunization Administration Dates Next Due Influenza, Unspecified 07/01/2022,05/01/2021 Surgical History Surgery Date Site/Laterality Comments HERNIA REPAIR CHOLECYSTECTOMY ENDOMETRIAL ABLATION TUBAL LIGATION SECTION 08/31/1992 - 08/30/1993 ARTHROSCOPIC SURGERY 1984,1994,2001 Left knee ABDOMINAL SURGERY 08/31/2012 - 08/30/2013 hiatel hernia repair COLONOSCOPY 1-2yrs ago POLYPECTOMY COLONOSCOPY 10/29/2022 APPENDECTOMY UPPER GASTROINTESTINAL ENDOSCOPY KNEE ARTHROSCOPY Right Medical History Medical History Date Comments Anxiety [...] Types Packs/Day Years Used Date Smoking Tobacco: Every Day Vaping Smokeless Tobacco: Never Tobacco Cessation:Ready to Q uit: Not Asked; Counseling Given: Not Answered Comments:off and on Alcohol Use Standard Drinks/Week Comments No 0 (1 standard drink = 0.6 oz pur e alcohol) on occasion [facility] Utilities Answer Date Recorded In the past 12 months has [employer], gas, oil, or water company threatened to [...] often do you attend chur ch or baptist services? Never 09/09/2023 Do you belong to any clubs o r organizations such as taoist groups, unions, fraternal or athletic groups, or school groups? No 09/09/2023 How often do you attend meet ings of the clubs or organizations you belong to? Never 09/09/2023 Are you , , di vorced, , never , or living with a partner? 09/09/2023 AUDIT-C Answer Date Recorded Q1: How often do you have a drink containing alcohol? Never 02/21/2025 Q2: How many drinks containi ng alcohol do you have on a typical day when you are drinking? Patient does not drink Q3: How often do you have si x or more drinks on one occasion? Never 02/21/2025 Overall Financial Resource Strain (CARDIA) Answe r [...] making you feel afraid or unsafe? Denies 02/21/2025 Comments No Sex and Gender Information Value Date Recorded Sex Assigned at Not on file Legal Sex Female 10:06 AM DYE BLENDER Gender Identity Female 06/17/2024 7:02 AM CDT Sexual Orientation Not on file Obstetrics History Para Term AB IAB SAB Ectopic Multiple Livin g Live Births 8 6 6 Date Outcome GA Total Labor Labor/2nd/3rd Weight Sex Type Anes PTL Sherrie A1 A5 Name Clin Term Term Term Term Term Term Last Filed Vital Signs Vital Sign Reading Time Taken Comments Blood Pressure 114/81 02/21/2025 2:18 PM CDT Pulse 65 02/21/2025 2:18 PM CDT Temperature 36.1 C (97 F) 02/21/2025 1:58 PM CDT Respiratory Rate 16 02/21/2025 2:18 PM CDT Oxygen Saturation 100% 02/21/2025 2:18 PM CDT Inhaled Oxygen Concentration - - Weight 63 kg (139 lb) 02/21/2025 12:31 PM CDT Height 164.6 cm (5' 4.8) 02/21/2025 12:31 PM CD T Body Mass Index 23.27 02/21/2025 12:31 PM CDT Plan of Treatment Scheduled Procedures [...] 11/11/2023, 05/20/2022, Additional history exists Influenza Vaccine (#1) 2025 , 07/01/2022, 06/18/2022, Additional history exists DTaP/Tdap/Td Vaccine (2 - Td or Tdap) 07/31/2027 07/31/2017 Colon Cancer Screening-Colonoscopy 02/21/2035 02/21/2025, 10/29/2022 Colon Cancer Screening-CT Colonography Discontinued 02/21/2025, 10/29/2022 Colon Cancer Screening-DNA Stool Discontinued 02/22/20, 10/29/2022 Colon Cancer Screening-FIT Discontinued 02/21/2025, Colon Cancer Screening-Sigmoidoscopy Discontinued 02/21/2025, 10/29/2022 Procedures Procedure Name Priority Date/Time Associated Diagnosis Comments SURGICAL PATHOLOGY Routine 02/21/2025 1:47 PM CDT Esophageal dysphagia Gastroesophagea l reflux disease with esophagitis without hemorrhage Rectal bleeding COLONOSCOPY 02/21/2025 1:14 PM CDT EGD 02/21/2025 1:13 PM CDT ESOPHAGOGASTRODUODENOSCOPY 02/21 1:12 PM CDT Esophageal dysphagia Gastroesophagea l reflux disease with esophagitis without hemorrhage Rectal bleeding Special Needs EndoFLIP and YI COLON BIOPSY 02/21/2025 1:12 PM CDT Esophageal dysphagia Gastroesophagea l reflux disease with esophagitis without hemorrhage Rectal bleeding Special Needs EndoFLIP and YI ESOPHAGEAL BALLOON DISTENSIO N STUDY DIAGNOSTIC WITH PROVOCATION 02/21/2025 1:12 PM CDT Esophageal dysphagia Gastroesophagea l reflux disease with esophagitis without hemorrhage Rectal bleeding Special Needs EndoFLIP and YI YI Routine 02/21/2025 11:44 AM CDT Dysphagia, unspecified type SCREENING MAMMOGRAM BILATERA Justen W BONG Schedule Routine, Read Routine (OP Routine) 11/11/2023 8:54 AM CDT Screening mammogram, encounter for from Last 3 Months or Most Recently Relevant to Health Maintenance Results * Surgical pathology (02/21/2025 1:47 PM CDT) Tissue (Ileum, Biopsy) 02/21/2025 1:47 PM CDT Tissue specimen (specimen) (Colon, Biopsy) 02/21/2025 1:48 PM CDT Tissue specimen (specimen) (Colon, Biopsy) 02/21/2025 1:49 PM CDT Narrative PATHOLOGY [facility] - 02/22/2025 7:31 PM CDT EPIC results best viewed via link to PDF [facility] Katerine Lim [facility] [place] [address] Note to Patients: This report may contain [...] details. SURGICAL PATHOLOGY REPORT FINAL Patient Name: SARAHY MAYS Gender: F : 1970 (Age: 54) Address: [address] [place] [id number] Hospital #: [id number] Taken:02/21/2025 Received:02/21/2025 Reported: 02/22/2025 Patient Type: [facility] Service: Gastro Location: Physician(s): Marv Earl M.D. Mandeep Pennington DO Diagnosis: A. Small intestine, terminal ileum, biopsy: - Ileal mucosa with no significant abnormality. B. Colon, right, biopsy: - Colonic mucosa with focal active colitis (cryptitis). C. Colon, left, biopsy: - Colonic mucosa with no significant abnormality. [facility]/02/22/2025 15:10 By this signature, I attest that the above diagnosis is based upon my personal examination of the slides(and/or other material indicated in the diagnosis). Deandre Hidalgo MD, PHD Report Electronically Reviewed and Signed Out By Deandre Hidalgo MD, PHD 02/22/2025 19:31:07 Diagnosis Comment The significance of the focal active colitis in the right colon biopsy is unclear. Correlation with the patient's presentation and infectious workup may be helpful. History: The patient is a 54-year-old woman presenting for esophageal dysphagia, gastroesophageal reflux disease with esophagitis without hemorrhage, and rectal bleeding. Operative procedure: Esophageal balloon distention steady Diagnostic with provocation and colon biopsy. Specimen(s) Received: A: Cold biopsies -terminal ileum B: Cold biopsies -right colon C: Cold biopsis left colon Gross Description: Received in three formalin jars labeled with the patient's identifiers. A. Labeled cold biopsies terminal ileum and consists of two padron-pink fragment(s) of soft tissue measuring 0.6 cm each in greatest dimension. Labeled A1. Jar 0. B. Labeled cold biopsies right colon and consists of multiple padron-pink fragment(s) of soft tissue with an aggregate measurement of 1.2 x 0.6 x 0.1 cm. Labeled B1. Jar 0. C. Labeled cold biopsies left colon and consists of multiple padron-pink fragment(s) of soft tissue with an aggregate measurement of 0.9 x 0.5 x 0.1 cm. Labeled C1. Jar 0. [facility]/02/21/2025 15:54 PA(s): Natalia Morrell By this signature, I attest that the above diagnosis is based upon my personal examination of the slides(and/or other material). Addenda/Procedures The performance characteristics of some immunohistochemical stains, fluorescence in-situ hybridization tests and immunophenotyping by flow cytometry cited in this report (if any) were determined by the Surgical Pathology and Flow Cytometry Departments at [facility] as part of an ongoing rn quality program and in compliance with federally mandated regulations drawn from the Clinical Laboratory Improvement Act of 1988 (CLIA '88). Some of these tests rely on the use of analyte specific reagents and are subject to specific labeling requirements by the US Food and Drug Administration. Such diagnostic tests may only be performed in a facility that is certified by the Department of Health and Human Services as a high complexity laboratory under CLIA '88. The FDA has determined that such clearance or approval is not necessary. This test is used for clinical purposes. It should not be regarded as investigational or for research. Nevertheless, federal rules concerning the medical use of analyte specific reagents require that the following disclaimer be attached to the report: This test was developed and its performance characteristics determined by the Surgical Pathology and Flow Cytometry Departments of [facility]. It has not been cleared or approved by the U. S. Food and Drug Administration. IMAGES AND SCANNED DOCUMENTS, IF INCLUDED, ONLY VIEWABLE IN PDF VERSION OF REPORT us Marv Earl MD LAB PATHOLOGY ORDERABLES [facility] Result PATHOLOGY [facility] 3rd Floor [place], [place] [phone] * Colonoscopy (02/21/2025 1:14 PM CDT) Anatomical Region Laterality Modality Other Narrative Procedure Note Marv Earl MD - 02/21/2025 1:14 PM CDT GI ENDOSCOPY [facility] Patient Name: Sarahy Mays Procedure Date: 02/21/2025 1:14 PM Date of : 1970 Admit Type: Outpatient Age: 54 Gender: Female Attending MD: Marv Earl M.D. Room: [facility] ENDOSCOPY ROOM 9 Note Status: Finalized Procedure: Colonoscopy Indications: Abnormal CT of the GI tract; CT 07/2024 with wall thickening of the descending colon Referring MD: Say Davila M.D. Providers: Marv Earl M.D. Comorbidities See the other procedure note for documentation of comorbidities Medicines: Monitored Anesthesia Care Complications: No immediate complications. Estimated Blood Loss: Estimated blood loss: none. Procedure: Pre-Anesthesia Assessment: - Prior to the procedure, a History and Physicalwas performed, and patient medications, allergies and sensitivities were reviewed. The patient'stolerance of previous anesthesia was reviewed. - Immediately prior to administration ofmedications, the patient was re-assessed for adequacy to receive sedatives. - The risks and benefits of the procedure and the sedation options and risks were discussed with the patient. All questions were answered and informed consent was obtained. The benefits, risks and alternatives of theprocedure and sedation were discussed and informed consentwas obtained. All questions were answered. Please referto the signed informed consent document in the medical record. The scope was passed under direct vision.The [id number] endoscope was introduced through the anus and advanced to the terminal ileum. The colonoscopy was performed without difficulty. The patient tolerated the procedure well. The qualityof the bowel preparation was evaluated using the BBPS (Paris Bowel Preparation Scale) with scores of:Right Colon = 1 (portion of mucosa seen, but other areasnot well seen due to staining, residual stool and/or opaque liquid), Transverse Colon = 2 (minor amountof residual staining, small fragments of stool and/or opaque liquid, but mucosa seen well) and Left Colon= 2 (minor amount of residual staining, smallfragments of stool and/or opaque liquid, but mucosa seenwell). The total BBPS score equals 5. The bowelpreparation used was GoLYTELY via split dose instruction. The quality of the bowel preparation was poor. Findings: The perianal and digital rectal examinations were normal. The terminal ileum appeared normal. Biopsies were taken with a cold forceps for histology. A large amount of semi-liquid semi-solid stool was found in theentire colon, interfering with visualization. Multiple small and large-mouthed diverticula were found in thesigmoid colon, descending colon and ascending colon. Normal mucosa was found in the entire colon. Biopsies were taken witha cold forceps for histology. Non-bleeding internal hemorrhoids were found during retroflexion. Impression: - The examined portion of the ileum was normal. Biopsied. - Stool in the entire examined colon. Preparation insufficient for polyp surveillance. - Diverticulosis in the sigmoid colon, in the descending colon and in the ascending colon. - Normal mucosa in the entire examined colon.Biopsied. - Non-bleeding internal hemorrhoids. Recommendation: - The patient will be observed post-procedure,until all discharge criteria are met. - Await pathology results. - Follow up with primary edger automatic. - Continue home medications. - Resume previous diet. - Follow up with referring physician as previously scheduled. - In the unusual situation that you developabdominal, bleeding or other significant problems in the days following this procedure please call [phone] ask for my nurse, Abena Lam. After hours and evenings please call [phone] and speak to theGI fellow occupational medicine physician. Please tell the fellow that Dr. Earl did your procedure and that you were instructed to have the fellow call me or thephysician covering for me to discuss the management of your condition. If you have an urgent problem, please goto the nearest emergency room and have the ER doctorcall my office during the day or [facility] transfer ([phone]) center after hours and weekends to arrange admission or transfer to our facility. Attending Participation: I personally performed the entire procedure. Electronically signed by Marv Earl MD Marv Earl M.D. 02/21/2025 2:02:04 PM . Number of Addenda: 0 Note Initiated On: 02/21/2025 1:14 PM us Marv Earl MD ENDOSCOPY PROCEDURES Final Result * EGD (02/21/2025 1:13 PM CDT) Anatomical Region Laterality Modality Other Narrative Procedure Note Marv Earl MD - 02/21/2025 1:13 PM CDT GI ENDOSCOPY [facility] Patient Name: Sarahy Mays Procedure Date: 02/21/2025 1:13 PM Date of : 1970 Admit Type: Outpatient Age: 54 Gender: Female Attending MD: Marv Earl M.D. Room: [facility] ENDOSCOPY ROOM 9 Note Status: Finalized Procedure: Upper GI endoscopy Indications: Dysphagia Referring MD: Say Davila M.D. Providers: Marv Earl M.D. Comorbidities See the other procedure note for documentation of comorbidities Medicines: Monitored Anesthesia Care Complications: No immediate complications. Estimated Blood Loss: Estimated blood loss: none. Procedure: Pre-Anesthesia Assessment: - Prior to the procedure, a History and Physicalwas performed, and patient medications, allergies and sensitivities were reviewed. The patient'stolerance of previous anesthesia was reviewed. - Immediately prior to administration ofmedications, the patient was re-assessed for adequacy to receive sedatives. The benefits, risks, and alternatives to theprocedure and sedation were discussed and informed consentwas obtained. The scope was passed under direct vision. The GIF HQ190 [id number] endoscope was introduced through the mouth, and advanced to the second partof duodenum. The upper GI endoscopy was accomplished without difficulty. The patient tolerated the procedure well. Findings: The lower third of the esophagus was mildly tortuous. The lower esophageal sphincter was widely patent with no resistance withendoscope advancement, though slight angulation at the level of the wrap was noted. With the patient in the left lateral decubitus position, a 16cm long 3 mm diameter functional lumen imaging probe (FLIP), with a volume-based barostat bag, was placed at the lower esophagealsphincter using endoscopic visualization for the diagnostic evaluation of dysphagia. Saline was infused into the bag to a volume of 60 mL. The observed distensibility at that volume was approximately 3.0 mm2/mmHg with a minimum diameter of 17 mm. The catheter was deflated and withdrawn. Next, the YI capsule with delivery system wasintroduced through the mouth and advanced into the esophagus, such that theBRAVO pH capsule was positioned 34 cm from the incisors, which was 6 cm proximal to the GE junction. Suction was applied to the well of the YI pH capsule to suck in the adjacent mucosa of the esophagususing the external vacuum pump set at a minimum vacuum pressure of 550 mmHg for 30 seconds. The YI pH capsule was then deployed by depressingthe plunger on top of the handle to advance the locking pin into themucosa, thereby attaching the capsule to the esophagus. The plunger was then rotated a quarter turn clockwise to release the capsule from the delivery system. The delivery system was then withdrawn. Endoscopywas utilized for probe placement and diagnostic evaluation. A 1 cm hiatal hernia was present. Evidence of a fundoplication was found in the cardia. The wrapappeared intact. This was traversed. The stomach was normal. The examined duodenum was normal. Impression: - Mildly tortuous esophagus in the lower third.Widely patent lower esophageal sphincter with noresistance with endoscope advancement, though slightangulation at the level of the wrap was noted. FLIP performedand demonstrates compliant lower esophageal sphincterwith normal distensibility index. - 1 cm hiatal hernia. - A fundoplication was found. The wrap appearsintact. - Normal stomach. - Normal examined duodenum. - The YI pH capsule was positioned 34 cm fromthe incisors, which was 6 cm proximal to the GEjunction. Recommendation: - Await YI study. - Follow up with primary edger automatic and MISas previously scheduled. - Proceed with colonoscopy. Attending Participation: I personally performed the entire procedure. Electronically signed by Marv Earl MD Marv Earl M.D. 02/21/2025 2:05:06 PM . Number of Addenda: 0 Note Initiated On: 02/21/2025 1:13 PM us Mavr Earl MD ENDOSCOPY PROCEDURES Final Result * YI - (02/21/2025 11:44 AM CDT) Anatomical Region Laterality Modality Other us Say Davila MD PhD GI LAB PROCEDURE ORDER KIRA Final Result * Screening Mammogram Bilateral W [...] Mammogram IMG MAMMO PROCEDURES Fi nal Result from Last 3 Months or Most Recently Relevant to Health Maintenance Insurance [facility] MEDICARE ADVANTAGE [facility] Member Subscriber Plan / Payer (Ef fective 2023-Present) Name:Sarahy Mays Relation to Subscriber:Spouse Name:Arnulfo Mays Elise Date of :1969 (Home) Address: [address] [place] [address] Payer ID:[id number] (NAIC) Type:CIGNA HMO/PPO Address: [address] [facility] [address] [facility] MEDICARE ADVANTAGE [place] [id number] Advance Directives For more information, please contact: [phone] Documents on File Type Date Recorded Patient Shed Workers Supervisor Expl anation ADVANCE DIRECTIVE 08/14/2021 9:12 AM Raz r of Senior Patrol Agent-Medical * Full Code (Latest Code Status on File) Date Activated Date Inactivated Comments 02/21/2025 12:31 PM 02/21/2025 6:32 PM * Full Code Date Activated Date Inactivated Comments 02/08/2024 7:51 AM 02/08/2024 1:33 PM * Full Code Date Activated Date Inactivated Comments 09/09/2023 4:03 AM 09/09/2023 7:47 PM * Full Code Date Activated Date Inactivated Comments 08/21/2023 9:04 AM 08/21/2023 3:29 PM * Full Code Date Activated Date Inactivated Comments 08/21/2023 9:04 AM 08/21/2023 9:04 AM Care Teams Hip Hop Performers Relationship Specialty Start Date End Date Mandeep Pennington DO [facility] [address] [address] PCP - General Internal Medicine 02/14/25 Mere Landa NP Nurse Practitioner 02/07/20 Tico Burton MD Surgeon General Surgery 08/09/21 Ivan Liang MD Consulting Physician General Surgery 09/09/23
--- OUTSIDE RECORDS SUMMARY | 2025-03-07 23:30 | XMS_ITS | Encounter Summary ---
Author Organization [facility] Address [address] [place] [address] Phone Care Team Providers Care Deputy Clerk Of [address] Name Role Phone Mere Landa NP Unavailable [phone] Tico Burton MD Unavailable [phone] Ivan Liang MD Unavailable Mandeep Pennington DO Primary Care Provider [phone] Reason for Visit * Reason Onset Date Comments Test Results 02/24/2025 Encounter Details Date Type Department Care Team (Late st Contact Info) Description 02/24/2025 Results Follow-Up [facility] Gastroenterology [address] [facility] 2nd [address] [place] [address] Marv Earl MD [address] [place] [address] Surgical pathology Social History Tobacco Use Types Packs/Day Years Used Date Smoking Tobacco: Every Day Vaping Smokeless Tobacco: Never Comments:off and on Alcohol Use Standard Drinks/Week Comments No 0 (1 standard drink = 0.6 oz pur e alcohol) on occasion [facility] Utilities Answer Date Recorded In the past 12 months has [employer], gas, oil, or water [employer] threatened to shut off services in your [...] on file Legal Sex Female 10:06 AM PRE CERTIFICATION SPECIALIST Gender Identity Female 06/17/2024 7:02 AM CDT Sexual Orientation Not on file documented as of this encounter Plan of Treatment Scheduled Procedures Name Priority Associated Diagnoses Date/Ti me ESOPHAGOGASTRODUODENOSCOPY Open Access Gastroesophageal reflux disease, unspecified whether esophagitis present ESOPHAGOGASTRODUODENOSCOPY Open Access Dysphagia, unspecified type documented as of this encounter Visit Diagnoses Not on filedocumented in this encounter Care Teams Deputy Clerk Of [address] Court Relationship Specialty Start Date End Date Mandeep Pennington DO [address] [place] [address] [address] [place] [address] PCP - General Internal Medicine 02/14/25 Mere Landa NP Nurse Practitioner 02/07/20 Tico Burton MD Surgeon General Surgery 08/09/21 Ivan Liang MD Consulting Physician General Surgery 09/09/23 documented as of this encounter
--- OUTSIDE RECORDS SUMMARY | 2025-03-07 23:30 | XMS_ITS | Clinical Summary ---
Author Organization [facility] Address [address] [place] [address] Phone Care Team Providers Care Proposition Player Name Role Phone Parmjit Dai MD Primary Care Provider [phone] Jazmine Kulkarni MD Unavailable [phone] Mir Spencer MD Unavailable Allergies Active Allergy [...] Comments Blood Pressure 96/66 10/29/2023 8:05 AM NURSE EMERGENCY ROOM Pulse 52 10/29/2023 8:05 AM NURSE EMERGENCY ROOM Temperature 36.9 C (98.4 F) 10/16/2023 8:53 AM NURSE EMERGENCY ROOM Respiratory Rate 20 10/29/2023 8:05 AM NURSE EMERGENCY ROOM Oxygen Saturation 100% 10/16/2023 8:53 AM NURSE EMERGENCY ROOM Inhaled Oxygen Concentration - - Weight 56.7 kg (125 lb) 10/29/2023 8:05 AM NURSE EMERGENCY ROOM Height 162.6 cm (5' 4) 10/29/2023 8:05 AM NURSE EMERGENCY ROOM Body Mass Index 21.46 10/29/2023 8:05 AM NURSE EMERGENCY ROOM Plan of Treatment Health Maintenance Due Date [...] 06/10/2023 Mammogram 11/10/2024 11/11/2023, 05/20/2022 Influenza Immunization (#1) 05/01/202507/01, 07/01/2022, 06/18/2022, Additional history exists Td Immunization [...] age to complete this topic Insurance MEDICAID [place] MEDICARE C [facility] Care Teams Proposition Player Relationship Specialty Start Date End Date Parmjit Dai MD [address] [place] [address] [address] [place] [address] PCP - General Family Medicine 05/21/22 Jazmine Kulkarni MD [address] [place] [address] [address] [place] [address] Family Medicine 05/21/22 Mir Spencer MD [address] [place] [address] Consulting Physician Urology 10/29/23
--- OUTSIDE RECORDS SUMMARY | 2025-03-07 23:30 | XMS_ITS | Referral Summary ---
Author Organization [facility] HealthCare Care Team Providers Care Rectangular Tank Cooper Name Role Phone Mere Landa NP Unavailable [phone] Tico Burton MD Unavailable [phone] Ivan Liang MD Unavailable Mandeep Pennington DO Primary Care Provider [phone] Encounters Date Type Department Care Team Description 02/24/2025 Results Follow-Up [facility] Gastroenterology [address] [facility] 2nd Floor [address] [place] [address] Marv Earl MD Surgical pathology 02/21/2025 1:12 PM CDT Anesthesia Event [facility] Digestive Disease [address] [address] Dl Lerner MD 02/21/2025 10:42 AM CDT - 02/21/2025 11:59 PM CDT Hospital Encounter [facility] Digestive Disease [place] [id number] [facility] [address] [place] [address] Dysphagia, unspecified type Discharge Disposition: Discharge to home or self care 02/21/2025 1:00 PM CDT - 02/21/2025 1:30 PM CDT Surgery [facility] Digestive Disease Center [facility] [address] [place] [address] Marv Earl MD ESOPHAGEAL BALLOON DISTENSION STUDY DIAGNOSTIC WITH PROVOCATION 02/21/2025 10:42 AM CDT - 02/21/2025 2:32 PM CDT Hospital Encounter [facility] Digestive Disease Center [address] [facility] [address] [place] [address] Marv Earl MD Esophageal dysphagia; Gastroesophageal reflux disease with esophagitis without hemorrhage; Rectal bleeding Discharge Disposition: Discharge to home or self care 02/14/2025 Telephone [facility] Gastroenterology [address] [facility] 12th [place] [address] [place] [address] Rose Negron MD MRI/MRCP Order 02/13/2025 Telephone [facility] Gastroenterology [address] [place] [address] 12th [place] [address] [place] [address] Carloz Katharine 02/08/2025 Orders Only [facility] Gastroenterology [address] [place] [address] Medical Office Building [address], [address] [place] [address] Monique Delgado, KIET 02/08/2025 Documentation [facility] Gastroenterology [address] [place] [address] Medical Office [address], [address] [place] [address] Monique Delgado, KIET adding colon to 02/21/25 procedure 02/07/2025 Orders Only [facility] Gastroenterology [address] [place] [address] [place] [address] [place] [address] Rose Negron MD Abnormal CT scan, gastrointestinal tract (Primary Dx) 02/06/2025 Telephone [facility] Gastroenterology [address] [place] [address] Medical Office [address], [address] [place] [address] Monique Delgado, KIET AC Hold recommendations 01/19/2025 Telephone [facility] Digestive Disease Center [address] [facility] [address] [place] [address] Magda Brooks RN 01/19/2025 Telephone [facility] Gastroenterology [address] [place] [address] Medical [address], [address] [place] [address] Abena Lam, KIET GI Preprocedure; Scheduling Testing/Treatment; AC hold recs 01/16/2025 Telephone [facility] Gastroenterology [address] [place] [address] Medical Office [address], [address] [place] [address] Abena Lam, KIET Scheduling Testing/Treatment; Unsuccessful Phone Call 2 01/16/2025 Telephone [facility] Specialty Services [facility] [place] [address] Katharine Bee, KIET 01/16/2025 Telephone [facility] Gastroenterology [address] [place] [address] [place] [address] Katharine Carty 01/12/2025 Telephone [facility] Gastroenterology [address] [place] [address] [address], [address] [place] [address] Abena Lam, KIET Scheduling Testing/Treatment 01/12/2025 Orders Only [facility]) - [facility] Minimally Invasive Surgery [address] [place] [address] Floor, [place] [address] Say Davila MD PhD Gastroesophageal reflux disease, unspecified whether esophagitis present (Primary Dx) 01/09/2025 Telephone [facility] Gastroenterology [address] [place] [address] [place] [address] [place] [address] Marah Byrens RMA PRE PROCEDURE ASSESSMENT 01/09/2025 Orders Only [facility] Gastroenterology [address] [place] [address] [place] [address] [place] [phone] Forest Catherine MD Esophageal dysphagia (Primary Dx); Gastroesophageal reflux disease with esophagitis without hemorrhage 01/06/2025 Orders Only [facility]) [facility] Minimally Invasive Surgery [address] [place] [address] Floor, [place] [phone] Say Davila MD PhD Dysphagia, unspecified type (Primary Dx) 01/03/2025 Orders Only [facility]) - [facility] Minimally Invasive Surgery [address] [facility] 12th Floor, [place] [address] Say Davila MD PhD Gastroesophageal reflux disease, unspecified whether esophagitis present (Primary Dx) from Last 3 Months Allergies Active Allergy [...] 09/03/2023 Assessment & Plan (09/17/2023 9:54 AM HEEL FINISHER): Diet as tolerates. Continue bowel regimen if needed to avoid straining. No submerging incision for 1 more week. Light duty for another 2 weeks. Patient will call us back with any further questions or concerns. Assessment & Plan (09/03/2023 8:54 AM HEEL FINISHER): I will discuss her case with GI. [...] (09/10/2022): Added automatically from request for surgery [id number] Cyclical vomiting 09/05/2022 Gastritis 09/05/2022 Gastroesophageal reflux [...] 08/13/2021 Assessment & Plan (08/13/2021 9:33 AM HEEL FINISHER): Pt complains of pain with urination. Pt also complains of suprapubic pain. Plan - Urine analysis TIA (transient ischemic attack) 08/11/2021 Assessment & Plan (08/13/2021 9:29 AM HEEL FINISHER): Sarahy Mays 51-year-old female presenting with left [...] mg Assessment & Plan (08/12/2021 6:00 PM HEEL FINISHER): Sarahy Mays 51-year-old female presenting with left [...] recommendations Assessment & Plan (08/09/2021 6:14 PM HEEL FINISHER): Patient has a history of IBS with [...] agitation/anxiety Assessment & Plan (08/13/2021 9:30 AM HEEL FINISHER): Currently mood at baseline. Continue home med Celexa Assessment & Plan (08/12/2021 5:53 PM HEEL FINISHER): Currently mood at baseline. Continue home med Celexa Assessment & Plan (08/09/2021 6:30 PM HEEL FINISHER): Per patient has a history of bipolar depressive type Stable at this time Not currently on any medication Patient denies any suicidal homicidal ideation Intussusception intestine 08/09/2021 Assessment & Plan (08/09/2021 6:36 PM HEEL FINISHER): 08/08/2021 CT abdomen/pelvis with contrast: Possible cystitis, [...] q.day Assessment & Plan (08/13/2021 9:29 AM HEEL FINISHER): Blood pressure has been under control Metoprolol restarted Assessment & Plan (08/12/2021 5:49 PM HEEL FINISHER): Blood pressure has been under control Metoprolol has been on hold-to allow for permissive hypertension for the next 24 hours, will restart tomorrow Assessment & Plan (08/09/2021 6:31 PM HEEL FINISHER): Have reviewed 24 hour blood pressures and [...] consult: Assessment & Plan (08/09/2021 6:12 PM HEEL FINISHER): CT abdomen pelvis with contrast at [place] yesterday showed intussusception CT abdomen pelvis with contrast at [facility]: Showed resolution of intussusception Patient has [...] monitor Assessment & Plan (08/13/2021 9:29 AM HEEL FINISHER): Currently in sinus rhythm. Eliquis on hold will resume on August 15. Continue with flecainide Metoprolol restarted Assessment & Plan (08/12/2021 5:54 PM HEEL FINISHER): Currently in sinus rhythm. Eliquis on hold will resume on August 15. Continue with flecainide Metoprolol on hold will resume tomorrow Assessment & Plan (08/09/2021 6:18 PM HEEL FINISHER): No acute events since admission Patient on Eliquis Metoprolol for rate control with hold parameters Will continue to monitor Essential tremor 10/12/2018 Assessment & Plan (08/13/2021 9:30 AM HEEL FINISHER): B/l hand with tremor - no changes in strength Assessment & Plan (08/09/2021 6:30 PM HEEL FINISHER): Patient reports after waking up had increase [...] consult Assessment & Plan (08/13/2021 9:30 AM HEEL FINISHER): Currently in no acute exacerbation. -continue Bentyl Assessment & Plan (08/12/2021 5:47 PM HEEL FINISHER): Currently in no acute exacerbation. -continue Bentyl Assessment & Plan (08/09/2021 6:15 PM HEEL FINISHER): Patient on Bentyl Monitoring electrolytes Assessment & [...] unsuccesssfully with acid reducers and gluten abstinence. Marilinzi was offered but insurance wouldn't pay. My feeling is probably ibs-d. Will get all the records from [place] and then regroup to discuss possible treatment options. Orthostatic dizziness 09/16/2016 Palpitations 07/29/2016 Migraine headache 07/29/2016 Assessment & Plan (12/18/2021 4:59 PM CDT): Started home Topamax Assessment & Plan (08/09/2021 6:17 PM HEEL FINISHER): Patient not complaining of headache or migraines [...] pur e alcohol) on occasion [facility] Utilities Answer Date Recorded In the past 12 months has [employer], gas, oil, or water [employer] threatened to shut off services in your [...] any clubs o r organizations such as congregation groups, unions, fraternal or athletic groups, or [...] money to buy more. Never true 09/09/19 Within the past 12 months, t he [...] on file Legal Sex Female 10:06 AM HEEL FINISHER Gender Identity Female 06/17/2024 7:02 AM CDT [...] CDT Dysphagia, unspecified type SCREENING MAMMOGRAM BILATERA L W BONG Schedule Routine, Read Routine (OP Routine) 11/11/2023 8:54 AM CDT Screening mammogram, encounter for from Last 3 Months or Most Recently Relevant to Health Maintenance Results * Surgical pathology (02/21/2025 1:47 PM CDT) Tissue (Ileum, Biopsy) 02/21/2025 1:47 PM CDT Tissue specimen (specimen) (Colon, Biopsy) 02/21/2025 1:48 PM CDT Tissue specimen (specimen) (Colon, Biopsy) 02/21/2025 1:49 PM CDT Narrative PATHOLOGY [facility] - 02/22/2025 7:31 PM CDT EPIC results best viewed via link to PDF [facility] Katerine Lim [facility] [place] [address] Note to Patients: This report may contain [...] Gender: F : 1970 (Age: 54) Address: [address] [place] [address] Hospital #: [id number] Taken:02/21/2025 Received:02/21/2025 Reported: 02/22/2025 Patient Type: [facility] Service: Gastro Location: Physician(s): Chelle Carter DO Diagnosis: A. Small intestine, terminal ileum, biopsy: - Ileal mucosa with no significant abnormality. B. Colon, right, biopsy: - Colonic mucosa with focal active colitis (cryptitis). C. Colon, left, biopsy: - Colonic mucosa with no significant abnormality. [facility]/02/22/2025 15:10 By this signature, I attest that [...] x 0.1 cm. Labeled C1. Jar 0. [facility]/02/21/2025 15:54 PA(s): Natalia Morrell By this signature, I attest that the above diagnosis is based upon my personal examination of the slides(and/or other material). Addenda/Procedures The performance characteristics of some immunohistochemical stains, fluorescence in-situ hybridization tests and immunophenotyping by flow cytometry cited in this report (if any) were determined by the Surgical Pathology and Flow Cytometry Departments at [facility] as part of an ongoing quality assistant program and in compliance with federally mandated [...] Surgical Pathology and Flow Cytometry Departments of [facility]. It has not been cleared or approved by the U. S. Food and Drug Administration. IMAGES AND SCANNED DOCUMENTS, IF INCLUDED, ONLY VIEWABLE IN PDF VERSION OF REPORT us Marv Earl MD LAB PATHOLOGY ORDERABLES Fi nal Result PATHOLOGY [facility] 3rd Floor [place], [place] [phone] * Colonoscopy (02/21/2025 1:14 PM CDT) Anatomical Region Laterality Modality Other Narrative Procedure Note Marv Earl MD - 02/21/2025 1:14 PM CDT GI ENDOSCOPY [facility] Patient Name: Sarahy Mays Procedure Date: 02/21/2025 1:14 PM Date of : 1970 Admit Type: Outpatient Age: 54 Gender: Female Attending MD: Marv Earl M.D. Room: [facility] ENDOSCOPY ROOM 9 Note Status: Finalized Procedure: [...] The scope was passed under direct vision.The [id number] endoscope was introduced through the anus and advanced to the terminal ileum. The colonoscopy was performed without difficulty. The patient tolerated the procedure well. The qualityof the bowel preparation was evaluated using the BBPS (Depue Bowel Preparation Scale) with scores of:Right Colon [...] pathology results. - Follow up with primary clinic administrator. - Continue home medications. - Resume previous diet. - Follow up with referring physician as previously scheduled. - In the unusual situation that you developabdominal, bleeding or other significant problems in the days following this procedure please call [phone] ask for my nurse, Abena Lam. After hours and evenings please call [phone] and speak to theGI fellow button spindler. Please tell the fellow that Dr. Earl did your procedure and that you were instructed to have the fellow call me or thephysician covering for me to discuss the management of your condition. If you have an urgent problem, please goto the nearest emergency room and have the ER doctorcall my office during the day or [facility] transfer ([phone]) center after hours and weekends to arrange [...] Female Attending MD: Marv Earl M.D. Room: [facility] ENDOSCOPY ROOM 9 Note Status: Finalized Procedure: [...] passed under direct vision. The [id number] [id number] endoscope was introduced through the mouth, and [...] YI study. - Follow up with primary clinic administrator and MISas previously scheduled. - Proceed with colonoscopy. Attending Participation: I personally performed the entire procedure. Electronically signed by Marv Earl MD Marv Earl M.D. 02/21/2025 2:05:06 PM . Number of Addenda: 0 Note Initiated On: 02/21/2025 1:13 PM us Marv Earl MD ENDOSCOPY PROCEDURES Final Result * YI - (02/21/2025 11:44 AM CDT) Anatomical Region Laterality Modality Other Say Davila MD PhD GI LAB PROCEDURE ORDER KIRA Final Result * Screening Mammogram Bilateral W Bong (11/11/2023 8:54 AM CDT) Anatomical Region Laterality Modality Breast Bilateral Mammography 11/11/2023 9:1 3 AM CDT Impressions 11/11/2023 9:13 AM CDT [...] Recently Relevant to Health Maintenance Insurance [facility] MEDICARE ADVANTAGE [facility] MEDIC[facility] ADVANTAGE JOANAJOHN ALLEGIANCE Advance Directives For more information, please contact: [phone] Documents on File Type Date Recorded Patient Epoxy Coatings Installer Expl anation ADVANCE DIRECTIVE 08/14/2021 9:12 AM Raz r of Compensation Expert-Medical * Full Code (Latest Code Status on [...] 9:04 AM 08/21/2023 9:04 AM Care Teams Rectangular Tank Cooper Relationship Specialty Start Date End Date Mandeep Pennington DO [facility] [address] [address] PCP - General Internal Medicine 02/14/25 Mere Landa V. STOCKROOM INVENTORY CLERK Nurse Practitioner 02/07/20 Tico Burton MD Surgeon General Surgery 08/09/21 Ivan Liang MD Consulting Physician General Surgery 09/09/23
--- OUTSIDE RECORDS SUMMARY | 2025-03-07 23:30 | XMS_ITS | Encounter Summary ---
Author Organization [facility] Healthcare Address [address] [place] [address] Care Team Providers Care Optimization Analyst Name Role Phone Mere Landa NP Unavailable [phone] Parmjit Dai MD Primary Care Provider [phone] Tico Burton MD Unavailable [phone] Ivan Liang MD Unavailable Mandeep Pennington DO Primary Care Provider [phone] Reason for Visit * Reason Onset Date Comments Scheduling Appointments 06/19/2021 confirmi ng mammogram appt Encounter Details Date Type Department Care Team (Late st Contact Info) Description 06/19/2021 Telephone [facility] [address] [place] [address] Cheryl Trejo RT Scheduling Appointments (confirming mammogram [...] file Legal Sex Female 10:06 AM RESEARCH AND DEVELOPMENT SCIENTIST Gender Identity Female 06/17/2024 7:02 AM [...] COVID: Suspected 07/06/2022 07/06/2022 07/06/2022 3:52 AM RESEARCH AND DEVELOPMENT SCIENTIST COVID: Suspected 08/18/2022 08/18/2022 08/18/2022 12:59 AM RESEARCH AND DEVELOPMENT SCIENTIST COVID: Suspected 09/19/2023 09/19/2023 09/19/2023 11:01 AM RESEARCH AND DEVELOPMENT SCIENTIST C. difficile suspected 07/21/2024 07/21/202407/22 3:05 AM RESEARCH AND DEVELOPMENT SCIENTIST documented as of this encounter Care Teams Optimization Analyst Relationship Specialty Start Date End Date Parmjit Dai MD PCP - General 12/31/20 02/13/25 Mandeep Pennington DO [facility] [address] [place] [address] [place] [address] PCP - General Internal Medicine 02/14/25 Mere Landa NP Nurse Practitioner 02/07/20 Tico Burton MD Surgeon General Surgery 08/09/21 Ivan Liang MD Consulting Physician General Surgery 09/09/23 documented as of this encounter
--- OUTSIDE RECORDS SUMMARY | 2025-03-07 23:30 | XMS_ITS | Clinical Summary ---
Author Organization [facility] Address [address] [facility] [place] [address] Care Team Providers Care Apron Man Name Role Phone Mandeep Pennington DO Primary Care Provider [phone] Source Comments [facility],non-owned Affiliates and Associated Physician Practices is amultiple site organization consisting of ambulatory clinics and hospital sitesin [place], [place], [place] and [place]. This disclosure is being madepursuant to the Care Everywhere program and may not contain all information available regarding this patient. Last updated 18.[facility] Allergies Active Allergy Reactions Criticality Noted Date [...] FLEX SIG - COLON CA SCREENING 1970 HIV SCREENING 1983 DTAP/TDAP/TD VACCINES (1 - Tdap) 1987 HEPATITIS B VACCINE (1 of 3 - 19+ 3-dose series) 1987 PAP SMEAR 1989 PNEUMOCOCCAL VACCINE 50+ (1 of 1 - PCV) 2018 ZOSTER VACCINE (1 of 2) 2018 COVID-19 VACCINE (1 - season) 2024 DEPRESSION SCREENING 08/31/2024 MEDICARE AWV CALENDAR YEAR 2024 INFLUENZA VACCINE (#1) 2025 , 07/01/2022, 06/18/2022, Additional history exists MAMMOGRAM [...] - 06/07/2024 7:12 AM CDT Performed at: [address] [id number] Fuel Cell Technician: Edmundo Dias PhD, Phone: [phone] Rolando Castro DO LAB - CHEMISTRY ORDERABLES Final Result Performing Organization Address City/State/[facility] Co de Phone Number [facility] INSURANCE BILL [address] [place] [address] from Last 3 Months or Most Recently Relevant to Health Maintenance Insurance [employer] MANAGED MEDICARE ADV Care Teams Apron Man Relationship Specialty Start Date End Date Mandeep Pennington DO [address] [place] [address] PCP - General Internal Medicine 06/30/24
[2025-03-07 23:38] VITALS: BP 107/80; PULSE 79; RESP 13; TEMP 36.8; O2SAT 98
--- NOTE | 2025-03-07 23:38 | ECG_ITS ---
Test Date: 2025-03-07 23:43:11 Measurements Intervals [place] Rate: 75 P: 68 MD: 145 QRS: 35 QRSD: 97 T: 41 QT: 437 QTc: 491 Interpretive Statements SINUS RHYTHM BASELINE ARTIFACT NOTED GROSSLY NORMAL ECG Compared to ECG 02/01/2025 22:21:03 No significant changes Electronically Signed On 03-08-2025 07:51:00 CDT by Say Lu M.D.
[2025-03-07 23:43] VITALS: PULSE 78
[2025-03-07 23:59] VITALS: RESP 15; O2SAT 99
--- NOTE | 2025-03-07 23:59 | ED_ITS ---
HPI - General Adult General Chief complaint: Unspecified <Manuela Sierra PA-C - Last Filed: 03/08/25 17:00> Stated complaint: MULTIPLE COMPLAINTS <JENNI Waldron Last Filed: 03/08/25 17:00> Time Seen by Provider: 03/07/25 23:56 <Manuela Sierra PA-C - Last Filed: 03/08/25 17:00> Source: patient <JENNI Waldron Last Filed: 03/08/25 17:00> Mode of arrival: ambulatory <JENNI Waldron Last Filed: 03/08/25 17:00> Limitations: no limitations <JENNI Waldron Last Filed: 03/08/25 17:00> History of Present Illness HPI narrative: Patient is a 54-year-old female, with PMH of IBS, AFIB on eliquis, who presents to the ED with report of lower abdominal pain. Patient reports having pain throughout her lower abdomen and in her L upper abdomen since Thursday. Also reports nausea, diarrhea. Has been taking Zofran at home without improvement. Denies vomiting. Does report that she passed a small amount of bright red blood in her stool today. Denies fevers. Patient states she recently had a colonoscopy which showed a small area of colitis. He has been seen here for colitis in the past as well. Sees a GI specialist with [facility]. <JENNI Waldron Last Filed: 03/08/25 17:00> Related Data Home medications: Home Medications ?Medication ?Instructions ?Recorded ?Confirmed ?Last Taken ?Type aluminum-mag hydroxide-simethicone 10 ml PO QID PRN Acid Reflux 05/28/20 01/18/25 07/23/24 History 400 mg-400 mg-40 mg/5 mL oral susp (Mylanta Maximum Strength) simethicone 125 mg chewable tablet 125 mg PO QID PRN Abdominal 05/28/20 01/18/25 04/24/21 21:00 History (Gas-X Extra Strength) Discomfort apixaban 5 mg tablet (Eliquis) 5 mg PO BID 10/23/23 01/18/25 07/30/24 History famotidine 20 mg tablet 20 mg PO DAILY PRN Acid Reflux 10/23/23 01/18/25 07/30/24 History metoprolol succinate 25 mg 25 mg PO DAILY 10/23/23 01/18/25 07/30/24 History tablet,extended release 24 hr flecainide 100 mg tablet 100 mg PO Q12H 10/29/23 01/18/25 07/30/24 History pantoprazole 40 mg tablet,delayed 40 mg PO BID 01/04/24 01/18/25 07/30/24 History release buspirone 10 mg tablet 10 mg PO BID 07/07/24 01/18/25 07/30/24 History <Manuela Sierra PA-C - Last Filed: 03/08/25 17:00> Allergies/adverse reactions: Allergies Allergy/AdvReac Type Severity Reaction Status Date / Time prochlorperazine AdvReac Severe Confusion Verified 03/07/25 23:28 metoclopramide (From Reglan) AdvReac Intermediate anxiety Verified 03/07/25 23:28 azithromycin AdvReac Unknown STOMACH Verified 03/07/25 23:28 UPSET promethazine (From Phenergan) AdvReac Jittery Verified 03/07/25 23:28 <Manuela Sierra PA-C - Last Filed: 03/08/25 17:00> Review of Systems 2 Review of Systems: All systems reviewed & are unremarkable except as noted in HPI. <Manuela Sierra PA-C - Last Filed: 03/08/25 17:00> All systems reviewed & are unremarkable except as noted in HPI and below < Manuela Sierra PA-C - Last Filed: 03/08/25 17:00> [facility] Past Medical History Medical History: Medical History Foot pain, right Achilles tendon contracture, right Chondromalacia of right knee Anemia History of TIA (transient ischemic attack) Irritable bowel syndrome with constipation History of hyperlipidemia History of atrial fibrillation History of gastroesophageal reflux (GERD) Adenomatous colon polyp Atrial fibrillation Arthritis GERD (gastroesophageal reflux disease) Celiac disease Diverticulosis Anxiety and depression Neuropathy Migraine headache <Manuela Sierra PA-C - Last Filed: 03/08/25 17:00> Surgical History Surgical History: Surgical History History of endometrial ablation Hx of hernia repair Hx of laparoscopy Hx of dilation and curettage History of colonoscopy with polypectomy (03/2021) And repeat colonoscopy 2022 Status post lateral meniscectomy of right knee (07/2024) Hx of emergency section History of appendectomy History of delivery History of tubal ligation History of Gary fundoplication History of cholecystectomy <Manuela Sierra PA-C - Last Filed: 03/08/25 17:00> Family History Family History: Family History Mother Family history of elevated blood lipids Family history of arthritis Sibling Family history of arthritis Grandparent Cerebrovascular accident Family history of cardiovascular disease Hypertension Diabetes mellitus Other Heart disease Acute myocardial infarction Father Alcoholism Mother Alcoholism Depression Anxiety Grandparent Throat cancer Cerebrovascular accident Heart problem <Manuela Sierra PA-C - Last Filed: 03/08/25 17:00> Social History Social History: Social History Social History: She lives at home with her of 6 years. This is her 3rd marriage. She had 6 children. One son and 5 daughters. She smoked half pack of cigarettes per day since she was 14 years old but switched to vaping nicotine several years ago. She rarely drinks alcohol and only minute amounts. She uses marijuana daily. Code status: Full code (she would not want to be on the ventilator long-term or if she had no quality of life ) Surrogate decision maker: Smoking packs per day: 0.5 Smoking cigarettes per day: 10.0 Years smoked: 15 Smoking pack-years: 7.50 Smoking status: Current every day smoker Tobacco type: e-cigarettes/vaping Second hand tobacco smoke exposure: No Additional smoking assessment comments: Currently vapes. Alcohol intake: never Substance use: current Substance use type: marijuana Other substance usage details: Daily Last use: 07/30/24 Do You Feel Safe in your Home?: Yes Lack of Transportation: No Lack of Food: Never True Current Housing: Decline to Answer Concerned About Future Housing: Decline to Answer Difficulty Paying Gas/Electric Bills: Decline to Answer Difficulty Paying for Meds: Decline to Answer Currently Unemployed: Decline to Answer Education: Decline to Answer Difficulty w/ Childcare or Family Care: Decline to Answer Living arrangements: with family Occupation/Education: other Additional occupation/education comments: disabled Gender identity (if verbalized by the patient): Female Sexual Orientation (if Verbalized by the Patient): Straight or Heterosexual Spiritual care concerns: No <Manuela Sierra PA-C - Last Filed: 03/08/25 17:00> Exam 2 Narrative: GENERAL: Appears older than stated age, mildly uncomfortable appearing, non- toxic, in no acute distress. HEAD: Normocephalic, atraumatic. ENT: Edentulous. RESPIRATORY: Airway patent, respirations nonlabored. Clear to auscultation bilaterally, no rales, rhonchi, wheezing. CARDIOVASCULAR: Regular rate and rhythm without murmurs, rubs, or gallops. ABDOMINAL: Soft, mild diffuse tenderness throughout lower abdomen, LUQ, no rebound, nondistended. Normoactive BS. MUSCULOSKELETAL: Moves all extremities. No gross deformities. SKIN: Warm, dry, normal color. NEURO: A&O X3. Speech clear. No ataxic movements. PSYCHIATRIC: Appropriate mood and affect. Normal interaction. <Manuela Sierra PA-C - Last Filed: 03/08/25 17:00> Course SALES MANAGER/PA Physician Supervision For this patient encounter, I reviewed the SALES MANAGER or PA documentation, treatment plan, and medical decision making and had [id number] time with this patient. I performed all aspects of the MDM as documented. <Emily Limon MD - Last Filed: 03/08/25 03:28> Vital Signs Vital signs: Vital Signs Temperature 98.2 F 03/07/25 23:38 Pulse Rate 79 03/07/25 23:38 Respiratory Rate 13 03/07/25 23:38 Blood Pressure 107/80 03/07/25 23:38 Pulse Oximetry 98 03/07/25 23:38 Temperature 97.9 F 03/08/25 03:39 Pulse Rate 70 03/08/25 03:39 Respiratory Rate 19 03/08/25 03:39 Blood Pressure 104/58 L 03/08/25 03:39 Pulse Oximetry 98 03/08/25 03:39 <Manuela Sierra PA-C - Last Filed: 03/08/25 17:00> Vital Signs Temperature 98.2 F 03/07/25 23:38 Pulse Rate 79 03/07/25 23:38 Respiratory Rate 13 03/07/25 23:38 Blood Pressure 107/80 03/07/25 23:38 Pulse Oximetry 98 03/07/25 23:38 Temperature 97.9 F 03/08/25 03:39 Pulse Rate 70 03/08/25 03:39 Respiratory Rate 19 03/08/25 03:39 Blood Pressure 104/58 L 03/08/25 03:39 Pulse Oximetry 98 03/08/25 03:39 <Emily Limon MD - Last Filed: 03/08/25 03:28> Medical Decision Making MDM Narrative Medical decision making narrative: Patient presented to ED with lower abdominal pain, nausea, diarrhea. History of IBS. Vital signs are stable upon arrival. Patient in no acute distress. Afebrile. Cbc without leukocytosis or anemia. H&H is stable. She did report having a small amount of blood in her stool today. She showed me a picture of this. Appeared consistent with mucous with 2 small streaks of blood. No overt hematochezia. CMP with evidence of mild dehydration. Bicarb 21, anion gap of 13. Fluids initiated. Electrolytes are otherwise stable. Kidney function is stable. UA w/o signs of infection. CT scan of abdomen/pelvis obtained. Care signed out to Dr. Limon at shift change pending STAT RAD CT results. < Manuela Sierra PA-C - Last Filed: 03/08/25 17:00> Patient presented to ED with lower abdominal pain, nausea, diarrhea. History of IBS. Vital signs are stable upon arrival. Patient in no acute distress. Afebrile. Cbc without leukocytosis or anemia. H&H is stable. She did report having a small amount of blood in her stool today. She showed me a picture of this. Appeared consistent with mucous with 2 small streaks of blood. No overt hematochezia. CMP with evidence of mild dehydration. Bicarb 21, anion gap of 13. Fluids initiated. Electrolytes are otherwise stable. Kidney function is stable. UA w/o signs of infection. CT scan of abdomen/pelvis obtained. Care signed out to Dr. Liomn at shift change pending STAT RAD CT results. Patient was signed out to me pending CT abdomen pelvis with IV contrast. CT was obtained and interpreted by me revealing no acute findings. Patient was informed of these findings at bedside. 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 Provided strict return precautions instructed return to the emergency department if any new or worsening symptoms develop. She was discharged home in stable condition. <Emily Limon MD - Last Filed: 03/08/25 03:28> Medical Records Medical records reviewed: Yes I reviewed the external patient's medical records. <Manuela Sierra PA-C - Last Filed: 03/08/25 17:00> Vital Signs Vital Signs: Vital Signs Temperature 98.2 F 03/07/25 23:38 Pulse Rate 79 03/07/25 23:38 Respiratory Rate 13 03/07/25 23:38 Blood Pressure 107/80 03/07/25 23:38 Pulse Oximetry 98 03/07/25 23:38 Temperature 97.9 F 03/08/25 03:39 Pulse Rate 70 03/08/25 03:39 Respiratory Rate 19 03/08/25 03:39 Blood Pressure 104/58 L 03/08/25 03:39 Pulse Oximetry 98 03/08/25 03:39 <Manuela Sierra PA-C - Last Filed: 03/08/25 17:00> Vital Signs Temperature 98.2 F 03/07/25 23:38 Pulse Rate 79 03/07/25 23:38 Respiratory Rate 13 03/07/25 23:38 Blood Pressure 107/80 03/07/25 23:38 Pulse Oximetry 98 03/07/25 23:38 Temperature 97.9 F 03/08/25 03:39 Pulse Rate 70 03/08/25 03:39 Respiratory Rate 19 03/08/25 03:39 Blood Pressure 104/58 L 03/08/25 03:39 Pulse Oximetry 98 03/08/25 03:39 <Emily Limon MD - Last Filed: 03/08/25 03:28> Lab Data Lab results reviewed: Yes I reviewed the patient's lab results. <Manuela Sierra PA-C - Last Filed: 03/08/25 17:00> Result diagrams: 03/07/25 23:52 03/07/25 23:52 <Manuela Sierra PA-C - Last Filed: 03/08/25 17:00> Labs: Lab Results 03/07/25 03/08/25 03/08/25 Range/Units 23:52 00:56 02:29 WBC 9.1 (4.5-10.0) K/mm3 RBC 4.49 (4.2-5.4) M/mm3 Hgb 13.4 (12.0-15.0) g/dL Hct 39.7 (37.0-47.0) % MCV 88.4 (80-100) fl MCH 29.8 (26-34) pg MCHC 33.8 (32-36) g/dl RDW 12.6 (11.5-14.5) % Plt Count 317 (150-375) k/mm3 MPV 10.0 (7.4-10.4) fl Immature Gran % (Auto) 4.6 H (0-0.5) % Neut % (Auto) 67.3 (45.5-73.1) % Lymph % (Auto) 18.7 (18.3-44.2) % [place] % (Auto) 8.9 H (2.6-8.5) % Eos % (Auto) 0.2 (0-4.4) % Baso % (Auto) 0.3 (0.2-1.2) % Lymph # (Auto) 1.70 (0.9-3.2) K/mm3 [place] # (Auto) 0.8 H (0.1-0.6) K/mm3 Eos # (Auto) 0.0 (0-0.3) K/mm3 Baso # (Auto) 0.0 (0.0-0.1) K/mm3 Abs Immat Gran (auto) 0.42 H (0.00-0.031) K/mm3 Absolute Neuts (auto) 6.1 (1.3-6.7) K/mm3 Absolute Nucleated RBC 0.000 (0.0-0.012) K/mm3 Nucleated RBC % 0.0 (0.0-0.2) % PT 16.8 H (11.1-14.7) Seconds INR 1.4 APTT 31.4 (22.3-36.8) Seconds Sodium 138 (137-145) mmol/L Potassium 3.9 (3.4-5.0) mmol/L Chloride 104 (98-107) mmol/L Carbon Dioxide 21 L (22-30) mmol/L Anion Gap 13 H (4-12) mmol/L BUN 6 L (7-17) mg/dL Creatinine 0.78 (0.7-1.0) mg/dL Estim Creat Clear Calc 60 ml/min Estimated GFR > 60 (59 - ) Glucose 116 H (65-110) mg/dL Calcium 9.9 (8.4-10.2) mg/dL Magnesium 2.0 (1.6-2.3) mg/dL Total Bilirubin 0.7 (0.2-1.3) mg/dL AST 38 H (14-36) U/L ALT 19 (6-35) U/L Alkaline Phosphatase 83 (38-126) U/L Total Protein 8.8 H (6.3-8.2) g/dL Albumin 5.1 (3.5-5.1) g/dL Lipase 198 (23-300) U/L Urine Color Yellow (Yellow) Urine Appearance Clear (Clear) Urine pH 8.0 (5.0-9.0) Ur Specific [place] 1.006 (1.001-1.035) Urine Protein Negative (Negative) mg/dL Urine Glucose (UA) Negative (Negative) mg/dL Urine Ketones Trace H (Negative) mg/dL Ur Blood (Man) Negative (Negative) Urine Nitrate Negative (Negative) Urine Bilirubin Negative (Negative) Urine Urobilinogen 0.2 (<2.0) mg/dL Add Ur Microanalysis Reviewed Leukocyte Esterase Rfl 1+ H (Negative) NEHA/UL Urine RBC 0-2 (0-2) /hpf Urine WBC 0-5 (0-3) /hpf Ur Squamous Epith Cells None seen (Few) /hpf Urine Bacteria None seen /hpf Urine Casts 0-2 POC Urine HCG, Qual Negative (Negative) Blood Type Antibody Screen 03/08/25 Range/Units 02:54 WBC (4.5-10.0) K/mm3 RBC (4.2-5.4) M/mm3 Hgb (12.0-15.0) g/dL Hct (37.0-47.0) % MCV (80-100) fl MCH (26-34) pg MCHC (32-36) g/dl RDW (11.5-14.5) % Plt Count (150-375) k/mm3 MPV (7.4-10.4) fl Immature Gran % (Auto) (0-0.5) % Neut % (Auto) (45.5-73.1) % Lymph % (Auto) (18.3-44.2) % [place] % (Auto) (2.6-8.5) % Eos % (Auto) (0-4.4) % Baso % (Auto) (0.2-1.2) % Lymph # (Auto) (0.9-3.2) K/mm3 [place] # (Auto) (0.1-0.6) K/mm3 Eos # (Auto) (0-0.3) K/mm3 Baso # (Auto) (0.0-0.1) K/mm3 Abs Immat Gran (auto) (0.00-0.031) K/mm3 Absolute Neuts (auto) (1.3-6.7) K/mm3 Absolute Nucleated RBC (0.0-0.012) K/mm3 Nucleated RBC % (0.0-0.2) % PT (11.1-14.7) Seconds INR APTT (22.3-36.8) Seconds Sodium (137-145) mmol/L Potassium (3.4-5.0) mmol/L Chloride (98-107) mmol/L Carbon Dioxide (22-30) mmol/L Anion Gap (4-12) mmol/L BUN (7-17) mg/dL Creatinine (0.7-1.0) mg/dL Estim Creat Clear Calc ml/min Estimated GFR (59 - ) Glucose (65-110) mg/dL Calcium (8.4-10.2) mg/dL Magnesium (1.6-2.3) mg/dL Total Bilirubin (0.2-1.3) mg/dL AST (14-36) U/L ALT (6-35) U/L Alkaline Phosphatase (38-126) U/L Total Protein (6.3-8.2) g/dL Albumin (3.5-5.1) g/dL Lipase (23-300) U/L Urine Color (Yellow) Urine Appearance (Clear) Urine pH (5.0-9.0) Ur Specific [place] (1.001-1.035) Urine Protein (Negative) mg/dL Urine Glucose (UA) (Negative) mg/dL Urine Ketones (Negative) mg/dL Ur Blood (Man) (Negative) Urine Nitrate (Negative) Urine Bilirubin (Negative) Urine Urobilinogen (<2.0) mg/dL Add Ur Microanalysis Leukocyte Esterase Rfl (Negative) NEHA/UL Urine RBC (0-2) /hpf Urine WBC (0-3) /hpf Ur Squamous Epith Cells (Few) /hpf Urine Bacteria /hpf Urine Casts POC Urine HCG, Qual (Negative) Blood Type B Positive Antibody Screen Negative <Manuela Sierra PA-C - Last Filed: 03/08/25 17:00> Lab Results 03/07/25 03/08/25 03/08/25 Range/Units 23:52 00:56 02:29 WBC 9.1 (4.5-10.0) K/mm3 RBC 4.49 (4.2-5.4) M/mm3 Hgb 13.4 (12.0-15.0) g/dL Hct 39.7 (37.0-47.0) % MCV 88.4 (80-100) fl MCH 29.8 (26-34) pg MCHC 33.8 (32-36) g/dl RDW 12.6 (11.5-14.5) % Plt Count 317 (150-375) k/mm3 MPV 10.0 (7.4-10.4) fl Immature Gran % (Auto) 4.6 H (0-0.5) % Neut % (Auto) 67.3 (45.5-73.1) % Lymph % (Auto) 18.7 (18.3-44.2) % [place] % (Auto) 8.9 H (2.6-8.5) % Eos % (Auto) 0.2 (0-4.4) % Baso % (Auto) 0.3 (0.2-1.2) % Lymph # (Auto) 1.70 (0.9-3.2) K/mm3 [place] # (Auto) 0.8 H (0.1-0.6) K/mm3 Eos # (Auto) 0.0 (0-0.3) K/mm3 Baso # (Auto) 0.0 (0.0-0.1) K/mm3 Abs Immat Gran (auto) 0.42 H (0.00-0.031) K/mm3 Absolute Neuts (auto) 6.1 (1.3-6.7) K/mm3 Absolute Nucleated RBC 0.000 (0.0-0.012) K/mm3 Nucleated RBC % 0.0 (0.0-0.2) % PT 16.8 H (11.1-14.7) Seconds INR 1.4 APTT 31.4 (22.3-36.8) Seconds Sodium 138 (137-145) mmol/L Potassium 3.9 (3.4-5.0) mmol/L Chloride 104 (98-107) mmol/L Carbon Dioxide 21 L (22-30) mmol/L Anion Gap 13 H (4-12) mmol/L BUN 6 L (7-17) mg/dL Creatinine 0.78 (0.7-1.0) mg/dL Estim Creat Clear Calc 60 ml/min Estimated GFR > 60 (59 - ) Glucose 116 H (65-110) mg/dL Calcium 9.9 (8.4-10.2) mg/dL Magnesium 2.0 (1.6-2.3) mg/dL Total Bilirubin 0.7 (0.2-1.3) mg/dL AST 38 H (14-36) U/L ALT 19 (6-35) U/L Alkaline Phosphatase 83 (38-126) U/L Total Protein 8.8 H (6.3-8.2) g/dL Albumin 5.1 (3.5-5.1) g/dL Lipase 198 (23-300) U/L Urine Color Yellow (Yellow) Urine Appearance Clear (Clear) Urine pH 8.0 (5.0-9.0) Ur Specific [place] 1.006 (1.001-1.035) Urine Protein Negative (Negative) mg/dL Urine Glucose (UA) Negative (Negative) mg/dL Urine Ketones Trace H (Negative) mg/dL Ur Blood (Man) Negative (Negative) Urine Nitrate Negative (Negative) Urine Bilirubin Negative (Negative) Urine Urobilinogen 0.2 (<2.0) mg/dL Add Ur Microanalysis Reviewed Leukocyte Esterase Rfl 1+ H (Negative) NEHA/UL Urine RBC 0-2 (0-2) /hpf Urine WBC 0-5 (0-3) /hpf Ur Squamous Epith Cells None seen (Few) /hpf Urine Bacteria None seen /hpf Urine Casts 0-2 POC Urine HCG, Qual Negative (Negative) Blood Type Antibody Screen 03/08/25 Range/Units 02:54 WBC (4.5-10.0) K/mm3 RBC (4.2-5.4) M/mm3 Hgb (12.0-15.0) g/dL Hct (37.0-47.0) % MCV (80-100) fl MCH (26-34) pg MCHC (32-36) g/dl RDW (11.5-14.5) % Plt Count (150-375) k/mm3 MPV (7.4-10.4) fl Immature Gran % (Auto) (0-0.5) % Neut % (Auto) (45.5-73.1) % Lymph % (Auto) (18.3-44.2) % [place] % (Auto) (2.6-8.5) % Eos % (Auto) (0-4.4) % Baso % (Auto) (0.2-1.2) % Lymph # (Auto) (0.9-3.2) K/mm3 [place] # (Auto) (0.1-0.6) K/mm3 Eos # (Auto) (0-0.3) K/mm3 Baso # (Auto) (0.0-0.1) K/mm3 Abs Immat Gran (auto) (0.00-0.031) K/mm3 Absolute Neuts (auto) (1.3-6.7) K/mm3 Absolute Nucleated RBC (0.0-0.012) K/mm3 Nucleated RBC % (0.0-0.2) % PT (11.1-14.7) Seconds INR APTT (22.3-36.8) Seconds Sodium (137-145) mmol/L Potassium (3.4-5.0) mmol/L Chloride (98-107) mmol/L Carbon Dioxide (22-30) mmol/L Anion Gap (4-12) mmol/L BUN (7-17) mg/dL Creatinine (0.7-1.0) mg/dL Estim Creat Clear Calc ml/min Estimated GFR (59 - ) Glucose (65-110) mg/dL Calcium (8.4-10.2) mg/dL Magnesium (1.6-2.3) mg/dL Total Bilirubin (0.2-1.3) mg/dL AST (14-36) U/L ALT (6-35) U/L Alkaline Phosphatase (38-126) U/L Total Protein (6.3-8.2) g/dL Albumin (3.5-5.1) g/dL Lipase (23-300) U/L Urine Color (Yellow) Urine Appearance (Clear) Urine pH (5.0-9.0) Ur Specific [place] (1.001-1.035) Urine Protein (Negative) mg/dL Urine Glucose (UA) (Negative) mg/dL Urine Ketones (Negative) mg/dL Ur Blood (Man) (Negative) Urine Nitrate (Negative) Urine Bilirubin (Negative) Urine Urobilinogen (<2.0) mg/dL Add Ur Microanalysis Leukocyte Esterase Rfl (Negative) NEHA/UL Urine RBC (0-2) /hpf Urine WBC (0-3) /hpf Ur Squamous Epith Cells (Few) /hpf Urine Bacteria /hpf Urine Casts POC Urine HCG, Qual (Negative) Blood Type B Positive Antibody Screen Negative <Emily Limon MD - Last Filed: 03/08/25 03:28> Imaging Data Attestation: I personally reviewed and interpreted this imaging study as follows: < Manuela Sierra PA-C - Last Filed: 03/08/25 17:00> ECG Data EKG #1: Attestation: I personally reviewed and interpreted this ECG as follows: <Manuela Sierra PA-C - Last Filed: 03/08/25 17:00> ECG completion date: 03/07/25 <JENNI Waldron Last Filed: 03/08/25 17:00> ECG completion time: 23:43 <JENNI Waldron Last Filed: 03/08/25 17:00> EKG Interpretation: normal rate (75), sinus rhythm and no ST changes <JENNI Waldron Last Filed: 03/08/25 17:00> Discharge Plan Discharge Clinical Impression: Bilateral lower abdominal pain, Nausea <JENNI Waldron Last Filed: 03/08/25 17:00> Patient Disposition: Home <JENIN Waldron Last Filed: 03/08/25 17:00> Condition: Stable <JENNI Waldron Last Filed: 03/08/25 17:00> Instructions: Antibiotic Form, Irritable Bowel Syndrome (ED), Abdominal Pain (ED) <JENNI Waldron Last Filed: 03/08/25 17:00> Additional Instructions: Please follow-up with your family doctor/GI doctor within the next 3-5 days. Return emergency room if any new or worsening symptoms develop. <JENNI Waldron Last Filed: 03/08/25 17:00> Patient Language: Portuguese <JENNI Waldron Last Filed: 03/08/25 17:00> Prescriptions: New dicyclomine 20 mg tablet 20 mg PO TID PRN (Reason: Abdominal Discomfort) Qty: 15 0RF No Action metoprolol succinate 25 mg tablet extended release 24 hr 25 mg PO DAILY famotidine 20 mg tablet 20 mg PO DAILY PRN (Reason: Acid Reflux) Eliquis 5 mg tablet 5 mg PO BID flecainide 100 mg tablet 100 mg PO Q12H pantoprazole 40 mg tablet,delayed release (DR/EC) 40 mg PO BID buspirone 10 mg tablet 10 mg PO BID loperamide [Anti-Diarrheal (loperamide)] 2 mg capsule 2 mg PO Q6H PRN (Reason: loose stool) Qty: 14 0RF dicyclomine 20 mg tablet 20 mg PO TID PRN (Reason: abdominal pain) Qty: 14 0RF ondansetron 4 mg tablet,disintegrating 4 mg PO Q8H PRN (Reason: nausea and vomiting) Qty: 20 0RF simethicone [Gas-X Extra Strength] 125 mg Tablet,Chewable 125 mg PO QID PRN (Reason: Abdominal Discomfort) Patient Comments: Patient states that she takes one between meals. alum-mag hydroxide-simeth [Mylanta Maximum Strength] 400-400-40 mg/5 mL Suspension 10 ml PO QID PRN (Reason: Acid Reflux) Patient Comments: Patient states she takes in between meals and before bed. dicyclomine 20 mg tablet 20 mg PO TID PRN (Reason: abdominal pain) Qty: 14 0RF amitriptyline 10 mg tablet See Rx Instructions .ROUTE .COMPLEX Qty: 30 5RF Dose Instruction: TAKE 1 TABLET BY MOUTH EVERYDAY AT BEDTIME Rx Instructions: TAKE 1 TABLET BY MOUTH EVERYDAY AT BEDTIME ondansetron 4 mg tablet,disintegrating 4 mg PO Q8H PRN (Reason: nausea and vomiting) Qty: 20 0RF fluconazole 150 mg tablet 150 mg PO ONCE Qty: 2 0RF Rx Instructions: May repeat after 72 hours if needed <Manuela Sierra PA-C - Last Filed: 03/08/25 17:00> Follow-up/Referrals: Mandeep Pennington, [Primary Care Provider] - 3 Days <Manuela Sierra PA-C - Last Filed: 03/08/25 17:00> Time of Disposition: 03:26 <Manuela Sierra PA-C - Last Filed: 03/08/25 17:00> 03:26 <Emily Limon MD - Last Filed: 03/08/25 03:28>
[2025-03-08] LABS: Hematocrit 39.7 % (37.0-47.0); Hemoglobin 13.4 g/dL (12.0-15.0); Immature Granulocyte Percent A 4.6 % (0-0.5); Lymphocytes Absolute Auto 1.70 K/mm3 (0.9-3.2); Mean Corpuscular HGB Conc 33.8 g/dl (32-36); Mean Corpuscular Hemoglobin 29.8 pg (26-34); Mean Corpuscular Volume 88.4 fl (80-100); Nucleated Red Blood Cells Absolute Auto 0.000 K/mm3 (0.0-0.012); Nucleated Red Blood Cells Perc 0.0 % (0.0-0.2); Platelet Count Result 317 k/mm3 (150-375); Red Blood Count 4.49 M/mm3 (4.2-5.4); White Blood Count 9.1 K/mm3 (4.5-10.0)
[2025-03-08 00:14] LABS: Alanine Aminotransferase 19 U/L (6-35); Albumin Level 5.1 g/dL (3.5-5.1); Alkaline Phosphatase 83 U/L (38-126); Anion Gap 13 mmol/L (4-12); Aspartate Amino Transferase 38 U/L (14-36); Bilirubin,Total 0.7 mg/dL (0.2-1.3); Blood Urea Nitrogen 6 mg/dL (7-17); Calcium 9.9 mg/dL (8.4-10.2); Carbon Dioxide 21 mmol/L (22-30); Chloride 104 mmol/L (98-107); Estimated CRCL calculation 60 ml/min; Estimated Glomerular Filt Rate > 60; Glucose 116 mg/dL (65-110); Lipase 198 U/L (23-300); Magnesium 2.0 mg/dL (1.6-2.3); Potassium 3.9 mmol/L (3.4-5.0); Sodium 138 mmol/L (137-145); Total Protein 8.8 g/dL (6.3-8.2)
--- OUTSIDE RECORDS SUMMARY | 2025-03-08 00:17 | XMS_ITS | Clinical Summary ---
Author Organization [facility] Address [address] [place] [address] Phone Care Team Providers Care Probate Judge Name Role Phone Parmjit Dai MD Primary Care Provider [phone] Jazmine Kulkarni MD Unavailable + [phone] Mir Spencer MD Unavailable Allergies Active Allergy [...] Comments Blood Pressure 96/66 10/29/2023 8:05 AM COMMUNITY RELATIONS ADVISOR Pulse 52 10/29/2023 8:05 AM COMMUNITY RELATIONS ADVISOR Temperature 36.9 C (98.4 F) 10/16/2023 8:53 AM COMMUNITY RELATIONS ADVISOR Respiratory Rate 20 10/29/2023 8:05 AM COMMUNITY RELATIONS ADVISOR Oxygen Saturation 100% 10/16/2023 8:53 AM COMMUNITY RELATIONS ADVISOR Inhaled Oxygen Concentration - - Weight 56.7 kg (125 lb) 10/29/2023 8:05 AM COMMUNITY RELATIONS ADVISOR Height 162.6 cm (5' 4) 10/29/2023 8:05 AM COMMUNITY RELATIONS ADVISOR Body Mass Index 21.46 10/29/2023 8:05 AM COMMUNITY RELATIONS ADVISOR Plan of Treatment Health Maintenance Due Date [...] topic Insurance MEDICAID [place] MEDICARE [facility] Care Teams Probate Judge Relationship Specialty Start Date End Date Parmjit Dai MD [address] [place] [address] [address] [place] [address] PCP - General Family Medicine 05/21/22 Jazmine Kulkarni MD [address] [place] [address] [address] [place] [address] Family Medicine 05/21/22 Mir Spencer MD [address] [place] [address] Consulting Physician Urology 10/29/23
--- OUTSIDE RECORDS SUMMARY | 2025-03-08 00:17 | XMS_ITS | Clinical Summary ---
Author Organization [facility] [employer] Address [address] [facility] [place] [address] Care Team Providers Care Sap Security Architect Name Role Phone Mandeep Pennington DO Primary Care Provider [phone] Source Comments [facility] [employer],non-owned Affiliates and Associated Physician Practices is amultiple site organization consisting of ambulatory clinics and hospital sitesin [place], [place], [place] and [place]. This disclosure is being madepursuant to the Care Everywhere program and may not contain all information available regarding this patient. Last updated 18.[facility] [employer] Allergies Active Allergy Reactions Criticality Noted Date [...] - 06/07/2024 7:12 AM CDT Performed at: [address] [id number] Flight/Transport Nurse: Edmundo Dias PhD, Phone: [phone] Rolando Castro DO LAB - CHEMISTRY ORDERABLES Final Result Performing Organization Address City/State/[facility] Co de Phone Number [facility] INSURANCE BILL [address] [place] [address] from Last 3 Months or Most Recently Relevant to Health Maintenance Insurance [facility] MANAGED MEDICARE ADV Care Teams Sap Security Architect Relationship Specialty Start Date End Date Mandeep Pennington DO [address] [place] [address] PCP - General Internal Medicine 06/30/24
[2025-03-08 00:18] LABS: INR 1.4; Prothrombin Time 16.8 Seconds (11.1-14.7)
[2025-03-08 00:19] LABS: Partial Thromboplastin Time 31.4 Seconds (22.3-36.8)
[2025-03-08] MEDS: MORPHINE SULFATE (*CRX) 4 MG/ML INJ IV PUSH (00:56)
[2025-03-08] MEDS: FAMOTIDINE 20 MG/2 ML VIAL IV PUSH (00:56)
[2025-03-08] MEDS: ONDANSETRON INJ 4 MG/2 ML VIAL IV PUSH (00:56)
[2025-03-08] MEDS: SODIUM CHLORIDE 0.9% IV 1,000 ML 999 ML IV CONT (00:59)
[2025-03-08 01:21] LABS: Add Urine Microscopic? YES; Appearance Urine Clear (Clear); Glucose Urine UA Negative (Negative); Leukocyte Esterase Ur 1+ LEU/UL (Negative); Need Manual Microscopic Reviewed; Nitrate Urine Negative (Negative); Non Pathogenic Casts 0-2; Specific Grav Ur 1.006 (1.001-1.035)
[2025-03-08 02:31] LABS: BEDSIDEPREGUCG Negative (Negative)
[2025-03-08 03:39] VITALS: BP 104/58; PULSE 70; RESP 19; TEMP 36.6; O2SAT 98
== END 2025-03-08 03:40 | disposition home or self-care (01) ==
PROVIDERS: Physician Assistant; Emergency Provider Emergency Medicine; PCP Internal Medicine
DX: R10.30 Lower abdominal pain, unspecified (principal); R11.0 Nausea; D64.9 Anemia, unspecified; Z86.73 Personal history of transient ischemic attack (TIA), and cerebral infarction without residual deficits; E78.5 Hyperlipidemia, unspecified; K21.9 Gastro-esophageal reflux disease without esophagitis; M19.90 Unspecified osteoarthritis, unspecified site; F41.9 Anxiety disorder, unspecified; F32.A Depression, unspecified; K57.90 Diverticulosis of intestine, part unspecified, without perforation or abscess without bleeding; Z79.01 Long term (current) use of anticoagulants
CPT/HCPCS: 36415; 74177; 80053; 81001; 81025; 83690; 83735; 85025; 85610; 85730; 86850; 86900; 86901; 87086; 93005; 96361; 96374; 96375; 99284; J2270; J2405; J7030; Q9967

== ENCOUNTER 2025-03-13 07:58 | Outpatient (CLI) | payer MEDICARE, OTHER, SELFPAY ==
--- NOTE | ~2025-03-13 | MR_ITS ---
EXAMINATION: MR MRCP wo/w con/w 3D wo ind DATE: 03/14/2025 08:36 INDICATION: Pancreatic ductal dilation TECHNIQUE: Magnetic resonance imaging (MRI) of the abdomen was performed without intravenous contrast . Patient terminated the procedure due to claustrophobia prior to the planned contrast injection. Seq uences included coronal T2-weighted SS-FSE, coronal T2-weighted FS SS-FSE, coronal T2-weighted FS FIE STA, axial T2-weighted FS FIESTA, axial T2-weighted FIESTA, sagittal T2-weighted SS-FSE, axial T1-kinga ghted dual-echo FSPGR, axial T2-weighted SS-FSE, axial T1-weighted LAVA, axial T2-weighted STIR FSE. Thick-slab T2-weighted FRFSE-XL images were obtained for magnetic resonance cholangiopancreatography (MRCP). COMPARISON: CT dated 03/18/2025 FINDINGS: ABDOMEN MRI: Heart size is normal. No pericardial or pleural effusion. Cholecystectomy clips the gallbladder fossa . Liver, spleen, pancreas and bilateral adrenal glands are normal. There are a couple bilateral renal cysts the larger on the right measuring 2.0 cm. Visualized portions of bowels are unremarkable with no obstruction. No pathologically enlarged abdominal mild thoracolumbar dextrocurvature with mild spo ndylosis. Bone marrow signal is normal throughout. Lymphadenopathy. ABDOMEN MRCP: The common bile duct measures up to 5 mm in maximal diameter, tapering distally with no intraluminal filling defects to suggest choledocholithiasis. The main pancreatic duct is normal in caliber measuri ng up to 1.8 mm in maximal diameter at the neck of the pancreas. Normal variant pancreas divisum with the main pancreatic duct crossing anterior to the common bile duct and draining into the minor papil la. IMPRESSION: 1. Normal variant pancreas divisum. Otherwise unremarkable MRCP with no biliary or pancreatic ductal dilation or choledocholithiasis. Reviewed, dictated and finalized at location A.
--- NOTE | ~2025-03-13 | XR_ITS ---
EXAM: XR abdomen/kub 1V DATE: 03/13/2025 08:32 HISTORY: r/o temporary Manuel device has passed pre MRI . COMPARISON: 04/29/2021; CT abdomen pelvis 03/08/2025. FINDINGS: Clear lung bases. Cholecystectomy clips. Normal bowel gas pattern. No organomegaly. No abn ormal abdominal calcification. Mild scoliosis. Lumbar degenerative disc disease. Mild bilateral hip o steoarthritis. IMPRESSION: No foreign body detected in the abdomen or pelvis. Reviewed, dictated and finalized at location K.
--- OUTSIDE RECORDS SUMMARY | 2025-03-13 08:03 | XMS_ITS | Referral Summary ---
Author Organization [facility] Care Team Providers Care Circular Shear Operator Name Role Phone Mere Landa NP Unavailable Tico Burton MD Unavailable [phone] Ivan Liang MD Unavailable Mandeep Pennington DO Primary Care Provider [phone] Encounters Date Type Department Care Team Description 03/09/2025 Telephone [facility] Surgery [address] [facility] Floor 8 [place] [address] Paula Peace 02/24/2025 Results Follow-Up [facility] Gastroenterology [address] [facility] 2nd Floor [address] [place] [address] Marv Earl MD Surgical pathology 02/21/2025 1:12 PM CDT Anesthesia Event [facility] [place] [address] [facility] [address] [place] [address] Dl Lerner MD 02/21/2025 10:42 AM CDT - 02/21/2025 11:59 PM CDT Hospital Encounter [facility] [address] [facility] [facility] [address] [place] [address] Dysphagia, unspecified type Discharge Disposition: Discharge to home or self care 02/21/2025 1:00 PM CDT - 02/21/2025 1:30 PM CDT Surgery [facility] [place] [address] [facility] [address] [place] [address] Marv Earl MD ESOPHAGEAL [facility]ALLO[facility] DISTENSION STUDY DIAGNOSTIC WITH PROVOCATION 02/21/2025 10:42 AM CDT - 02/21/2025 2:32 PM CDT Hospital Encounter [facility] [place] [address] [facility] [address] [place] [address] Marv Earl MD Esophageal dysphagia; Gastroesophageal reflux disease with esophagitis without hemorrhage; Rectal bleeding Discharge Disposition: Discharge to home or self care 02/14/2025 Telephone [facility] Gastroenterology [address] [place] [address] [place] [address] [place] [address] Rose Negron MD MRI/MRCP Order 02/13/2025 Telephone [facility] Gastroenterology [address] [place] [address] 12th [place] [address] [place] [address] Katharine Carty 02/08/2025 Orders Only [facility] G[facility] [address] [place] [address] Medical Office [address], [address] [place] [phone] Monique Delgado RN 02/08/2025 Documentation [facility] [address] [place] [address] Medical [address], [address] [place] [phone] Monique Delgado, KIET adding colon to 02/21/25 procedure 02/07/2025 Orders Only [facility] Gastroenterology [address] [place] [address] 12th [place] [address] [place] [address] Rose Negron MD Abnormal CT scan, gastrointestinal tract (Primary Dx) 02/06/2025 Telephone [facility] [address] [place] [address] Medical [address], [address] [place] [address] Monique Delgado, KIET AC Hold recommendations 01/19/2025 Telephone [facility] [place] [address] [facility] [address] [place] [address] Magda Brooks RN 01/19/2025 Telephone [facility]enter[facility] [address] [place] [address] Medical [address], [address] [place] [address] Abena Lam, KIET GI Preprocedure; Scheduling Testing/Treatment; AC hold recs 01/16/2025 Telephone [facility] [address] [place] [address] Medical [address], [address] [place] [address] Abena Lam, KIET Scheduling Testing/Treatment; Unsuccessful Phone Call 2 01/16/2025 Telephone [facility] [facility] Specialty Services [address] [place] [address] Katharine Bee, KIET 01/16/2025 Telephone [facility] Gastroenterology [address] [place] [address] [address] [place] [phone] Katharine Carty 01/12/2025 Telephone [facility] [address] [place] [address] Medical [address], [address] [place] [address] Abena Lam, KIET Scheduling Testing/Treatment 01/12/2025 Orders Only [facility] Minimally Invasive Surgery [address] [place] [address], [address] [place] [phone] Say Davila MD PhD Gastroesophageal reflux disease, unspecified whether esophagitis present (Primary Dx) 01/09/2025 Telephone [facility] Gastroenterology [address] [place] [address] [place] [phone] Marah Byrnes RMA PRE PROCEDURE ASSESSMENT 01/09/2025 Orders Only [facility] Gastroenterology [address] [place] [address] [place] [address] Forest Catherine MD Esophageal dysphagia (Primary Dx); Gastroesophageal reflux disease with esophagitis without hemorrhage 01/06/[address] [facility]) [facility] Minimally Invasive Surgery [address] [place] [address] Floor, [address] [place] [phone] Say Davila MD PhD Dysphagia, unspecified type (Primary Dx) 01/03/2025 Orders Only [facility] ([facility]) - [facility] Minimally Invasive Surgery [address] [facility] 12th Floor, [place] [address] Say Davila MD PhD Gastroesophageal reflux disease, [...] by mouth nightly at bedtime 4 Active linaCLOtide (LINZESS) 72 mcg capsuleIndicati ons:Constipatio n Predominant Irritable Bowel Syndrome Take 1 capsule (72 mcg total) by mouth daily 30 capsule 2 4 Active SUMAtriptan (IMITREX) 6 mg/0.5 mL injection 4 Active busPIRone (BUSPAR) 10 mg tabletIndicatio ns:Generalized Anxiety Disorder Take 1 tablet (10 mg total) by mouth 2 (two) times a day 60 tablet 2 5 025 Active acetaminophen (TYLENOL) 500 mg tablet Take 1 tablet (500 mg total) by mouth every 6 (six) hours as needed [address] (PROTONIX) 40 mg EC tablet Take 1 tablet (40 mg total) by mouth 2 (two) times a day before breakfast and dinner 60 tablet 1 5 025 Active ondansetron (ZOFRAN) 8 mg tablet Take 0.5-1 tablets (4-8 mg total) by mouth every 6 (six) hours as needed for nausea or vomiting 20 tablet 5 Active ondansetron (ZOFRAN) 8 mg tablet Take 0.5-1 tablets (4-8 mg total) by mouth every 6 (six) hours as needed for nausea or vomiting 20 tablet 3 4 025 Discontin ued(Reord er) pantoprazole DR (PROTONIX) 40 mg EC tablet Take 1 tablet (40 mg total) by mouth 2 (two) times a day before breakfast and dinner 60 tablet 1 5 025 Discontin ued(Reord [...] 09/03/2023 Assessment & Plan (09/17/2023 9:54 AM ENTRY LEVEL ACCOUNT EXECUTIVE): Diet as tolerates. Continue bowel regimen if needed to avoid straining. No submerging incision for 1 more week. Light duty for another 2 weeks. Patient will call us back with any further questions or concerns. Assessment & Plan (09/03/2023 8:54 AM ENTRY LEVEL ACCOUNT EXECUTIVE): I will discuss her case with GI. [...] (09/10/2022): Added automatically from request for surgery [id number] Cyclical vomiting 09/05/2022 Gastritis 09/05/2022 Gastroesophageal reflux [...] 08/13/2021 Assessment & Plan (08/13/2021 9:33 AM ENTRY LEVEL ACCOUNT EXECUTIVE): Pt complains of pain with urination. Pt also complains of suprapubic pain. Plan - Urine analysis TIA (transient ischemic attack) 08/11/2021 Assessment & Plan (08/13/2021 9:29 AM ENTRY LEVEL ACCOUNT EXECUTIVE): Sarahy Mays 51-year-old female presenting with left [...] mg Assessment & Plan (08/12/2021 6:00 PM ENTRY LEVEL ACCOUNT EXECUTIVE): Sarahy Mays 51-year-old female presenting with left [...] recommendations Assessment & Plan (08/09/2021 6:14 PM ENTRY LEVEL ACCOUNT EXECUTIVE): Patient has a history of IBS with [...] agitation/anxiety Assessment & Plan (08/13/2021 9:30 AM ENTRY LEVEL ACCOUNT EXECUTIVE): Currently mood at baseline. Continue home med Celexa Assessment & Plan (08/12/2021 5:53 PM ENTRY LEVEL ACCOUNT EXECUTIVE): Currently mood at baseline. Continue home med Celexa Assessment & Plan (08/09/2021 6:30 PM ENTRY LEVEL ACCOUNT EXECUTIVE): Per patient has a history of bipolar depressive type Stable at this time Not currently on any medication Patient denies any suicidal homicidal ideation Intussusception intestine 08/09/2021 Assessment & Plan (08/09/2021 6:36 PM ENTRY LEVEL ACCOUNT EXECUTIVE): 08/08/2021 CT abdomen/pelvis with contrast: Possible cystitis, [...] q.day Assessment & Plan (08/13/2021 9:29 AM ENTRY LEVEL ACCOUNT EXECUTIVE): Blood pressure has been under control Metoprolol restarted Assessment & Plan (08/12/2021 5:49 PM ENTRY LEVEL ACCOUNT EXECUTIVE): Blood pressure has been under control Metoprolol has been on hold-to allow for permissive hypertension for the next 24 hours, will restart tomorrow Assessment & Plan (08/09/2021 6:31 PM ENTRY LEVEL ACCOUNT EXECUTIVE): Have reviewed 24 hour blood pressures and [...] consult: Assessment & Plan (08/09/2021 6:12 PM ENTRY LEVEL ACCOUNT EXECUTIVE): CT abdomen pelvis with contrast at [place] yesterday showed intussusception CT abdomen pelvis with contrast at [facility]: Showed resolution of intussusception Patient has [...] monitor Assessment & Plan (08/13/2021 9:29 AM ENTRY LEVEL ACCOUNT EXECUTIVE): Currently in sinus rhythm. Eliquis on hold will resume on August 15. Continue with flecainide Metoprolol restarted Assessment & Plan (08/12/2021 5:54 PM ENTRY LEVEL ACCOUNT EXECUTIVE): Currently in sinus rhythm. Eliquis on hold will resume on August 15. Continue with flecainide Metoprolol on hold will resume tomorrow Assessment & Plan (08/09/2021 6:18 PM ENTRY LEVEL ACCOUNT EXECUTIVE): No acute events since admission Patient on Eliquis Metoprolol for rate control with hold parameters Will continue to monitor Essential tremor 10/12/2018 Assessment & Plan (08/13/2021 9:30 AM ENTRY LEVEL ACCOUNT EXECUTIVE): B/l hand with tremor - no changes in strength Assessment & Plan (08/09/2021 6:30 PM ENTRY LEVEL ACCOUNT EXECUTIVE): Patient reports after waking up had increase [...] consult Assessment & Plan (08/13/2021 9:30 AM ENTRY LEVEL ACCOUNT EXECUTIVE): Currently in no acute exacerbation. -continue Bentyl Assessment & Plan (08/12/2021 5:47 PM ENTRY LEVEL ACCOUNT EXECUTIVE): Currently in no acute exacerbation. -continue Bentyl Assessment & Plan (08/09/2021 6:15 PM ENTRY LEVEL ACCOUNT EXECUTIVE): Patient on Bentyl Monitoring electrolytes Assessment & [...] ibs-d. Will get all the records from [place] and then regroup to discuss possible treatment options. Orthostatic dizziness 09/16/2016 Palpitations 07/29/2016 Migraine headache 07/29/2016 Assessment & Plan (12/18/2021 4:59 PM CDT): Started home Topamax Assessment & Plan (08/09/2021 6:17 PM ENTRY LEVEL ACCOUNT EXECUTIVE): Patient not complaining of headache or migraines [...] 0.6 oz pur e alcohol) on occasion [employer] Utilities Answer Date Recorded In the past 12 months has [employer], gas, oil, or water [employer] threatened to shut off services in your [...] often do you attend chur ch or confucianism services? Never 09/09/2023 Do you [...] on file Legal Sex Female 10:06 AM ENTRY LEVEL ACCOUNT EXECUTIVE Gender Identity Female 06/17/2024 7:02 AM [...] Biopsy) 02/21/2025 1:49 PM CDT Narrative PATHOLOGY [facility] - 02/22/2025 7:31 PM CDT EPIC results best viewed via link to PDF [facility] Katerine Lim Laboratory [place] [address] Note to Patients: This report may contain [...] Gender: F : 1970 (Age: 54) Address: [address] [place], [place] [address] Hospital #: [id number] Taken:02/21/2025 Received:02/21/2025 Reported: 02/22/2025 Patient Type: [facility] Service: Gastro Location: Physician(s): Chelle Carter DO Diagnosis: A. Small intestine, terminal ileum, biopsy: - Ileal mucosa with no significant abnormality. B. Colon, right, biopsy: - Colonic mucosa with focal active colitis (cryptitis). C. Colon, left, biopsy: - Colonic mucosa with no significant abnormality. [facility]/02/22/2025 15:10 By this signature, I attest [...] x 0.1 cm. Labeled C1. Jar [address] [facility]/02/21/2025 15:54 PA(s): Natalia Morrell By this signature, I attest that the above diagnosis is based upon my personal examination of the slides(and/or other material). Addenda/Procedures The performance characteristics of some immunohistochemical stains, fluorescence in-situ hybridization tests and immunophenotyping by flow cytometry cited in this report (if any) were determined by the Surgical Pathology and Flow Cytometry Departments at [facility] as part of an ongoing air quality specialist program and in compliance with federally mandated [...] Surgical Pathology and Flow Cytometry Departments of [facility]. It has not been cleared or approved by the U. S. Food and Drug Administration. IMAGES AND SCANNED DOCUMENTS, IF INCLUDED, ONLY VIEWABLE IN PDF VERSION OF REPORT us Marv Earl MD LAB PATHOLOGY ORDERABLES Fi nal Result PATHOLOGY [facility] 3rd Floor [place], [place] [phone] * Colonoscopy (02/21/2025 1:14 PM CDT) Anatomical [...] The scope was passed under direct vision.The [id number] endoscope was introduced through the anus and advanced to the terminal ileum. The colonoscopy was performed without difficulty. The patient tolerated the procedure well. The qualityof the bowel preparation was evaluated using the BBPS ([place] Bowel Preparation Scale) with scores of:Right Colon [...] pathology results. - Follow up with primary automotive technician. - Continue home medications. - Resume previous diet. - Follow up with referring physician as previously scheduled. - In the unusual situation that you developabdominal, bleeding or other significant problems in the days following this procedure please call [phone] ask for my nurse, Abena Lam. After hours and evenings please call [phone] and speak to theGI fellow energy conservation technician. Please tell the fellow that Dr. Earl did your procedure and that you were instructed to have the fellow call me or thephysician covering for me to discuss the management of your condition. If you have an urgent problem, please goto the nearest emergency room and have the ER doctorcall my office during the day or [facility] transfer ([phone]) center after hours and weekends to arrange [...] - 02/21/2025 1:13 PM CDT GI ENDOSCOPY [place] Patient Name: Sarahy Mays Procedure Date: 02/21/2025 [...] passed under direct vision. The GIF [id number] endoscope was introduced through the mouth, and [...] YI study. - Follow up with primary automotive technician and MISas previously scheduled. - Proceed with colonoscopy. Attending Participation: I personally performed the entire procedure. Electronically signed by Marv Earl MD Marv Earl M.D. 02/21/2025 2:05:06 PM . Number of Addenda: 0 Note Initiated On: 02/21/2025 1:13 PM Marv Earl MD ENDOSCOPY PROCEDURES Final Result [...] Health Maintenance Insurance IDPA UHC MEDICARE [facility] MEDICARE ADVANTAGE [employer] ALLEGIANCE Advance Directives For more information, please contact: [phone] Documents on File Type Date Recorded Patient Wad Blanking Press Adjuster Expl anation ADVANCE DIRECTIVE 08/14/2021 9:12 AM [employer] * Full Code (Latest Code Status on [...] 9:04 AM 08/21/2023 9:04 AM Care Teams Circular Shear Operator Relationship Specialty Start Date End Date Mandeep Pennington DO [facility] [address] [place] [address] PCP - General Internal Medicine 02/14/25 Mere Landa NP Nurse Practitioner 02/07/20 Tico Burton MD Surgeon General Surgery 08/09/21 Ivan Liang MD Consulting Physician General Surgery 09/09/23
--- OUTSIDE RECORDS SUMMARY | 2025-03-13 08:03 | XMS_ITS | Clinical Summary ---
Author Organization [facility] [employer] Address [address] [place] [address] Care Team Providers Care Bullard Operator Name Role Phone Mandeep Pennington DO Primary Care Provider [phone] Source Comments [facility] [employer],non-owned Affiliates and Associated Physician Practices is amultiple site organization consisting of ambulatory clinics and hospital sitesin [place], [place], [place] and [place]. This disclosure is being madepursuant to the Care Everywhere program and may not contain all information available regarding this patient. Last updated 18.[facility] Allergies Active Allergy Reactions Criticality Noted Date [...] - 06/07/2024 7:12 AM CDT Performed at: [address] [id number] Manufacturer: Edmundo Dias PhD, Phone: [phone] Rolando Castro DO LAB - CHEMISTRY ORDERABLES Final Result Performing Organization Address City/State/[facility] Co de Phone Number [facility] INSURANCE BILL [address] [place] [address] from Last 3 Months or Most Recently Relevant to Health Maintenance Insurance [employer] MANAGED MEDICARE ADV Care Teams Bullard Operator Relationship Specialty Start Date End Date Mandeep Pennington DO [address] [place] [address] PCP - General Internal Medicine 06/30/24
--- OUTSIDE RECORDS SUMMARY | 2025-03-13 08:03 | XMS_ITS ---
Author Organization [facility] [employer] [facility] Address [facility] [address] [facility] [address] [place] [address] Care Team Providers Care [place]. Representative Name Role Phone Janet, Ru Unavailable [phone] Erwin De Luna Unavailable [phone] Encounters Encounter Location Date Provider Diagnosis [facility] [employer] [place] [address] [facility] [address] [facility] [address] [place] [address] 01/27/2024 Erwin De Luna Plan Of Treatment No Information Progress Notes * JEM MAYSB:[birth year] (55 yo F)Acc No.[id number]:01/27/2024 Patient: LUKASZ FELIX Provider: Theresa De Luna LCPC :1970 A ge:53 Y S ex:Female Date:01/27/2024 Address:[address] [place] [address] Subjective: * Chief Complaints: * * Medical History: Objective: * Vitals: Assessment: Plan: * Treatment: * Billing Information: * Visit Code: * Procedure Codes: * Electronic signature of Preeti De Luna LCPC on 03/13/2025 at 08:03 AM CDT Sign off status: Pending * Provider: Theresa De Luna LCPC Date: 01/27/2024 Generated for [place]/Ganesh/Yvetteitting on: 03/13/2025 08:03 AM CDT
--- OUTSIDE RECORDS SUMMARY | 2025-03-13 08:03 | XMS_ITS | Clinical Summary ---
Author Organization [facility] HealthCare Care Team Providers Care Jigsawyer Name Role Phone Mere Landa NP Unavailable [phone] Tico Burton MD Unavailable [phone] Ivan Liang MD Unavailable Mandeep Pennington DO Primary Care Provider [phone] Allergies Active Allergy Reactions Criticality Noted Date [...] 09/03/2023 Assessment & Plan (09/17/2023 9:54 AM DEBLOCKER): Diet as tolerates. Continue bowel regimen if needed to avoid straining. No submerging incision for 1 more week. Light duty for another 2 weeks. Patient will call us back with any further questions or concerns. Assessment & Plan (09/03/2023 8:54 AM DEBLOCKER): I will discuss her case with GI. [...] (09/10/2022): Added automatically from request for surgery [id number] Cyclical vomiting 09/05/2022 Gastritis 09/05/2022 Gastroesophageal reflux [...] 08/13/2021 Assessment & Plan (08/13/2021 9:33 AM DEBLOCKER): Pt complains of pain with urination. Pt also complains of suprapubic pain. Plan - Urine analysis TIA (transient ischemic attack) 08/11/2021 Assessment & Plan (08/13/2021 9:29 AM DEBLOCKER): Sarahy Cardenas Jairo 51-year-old female presenting with [...] mg Assessment & Plan (08/12/2021 6:00 PM DEBLOCKER): Sarahy Mays 51-year-old female presenting with left [...] recommendations Assessment & Plan (08/09/2021 6:14 PM DEBLOCKER): Patient has a history of IBS with [...] agitation/anxiety Assessment & Plan (08/13/2021 9:30 AM DEBLOCKER): Currently mood at baseline. Continue home med Celexa Assessment & Plan (08/12/2021 5:53 PM DEBLOCKER): Currently mood at baseline. Continue home med Celexa Assessment & Plan (08/09/2021 6:30 PM DEBLOCKER): Per patient has a history of bipolar depressive type Stable at this time Not currently on any medication Patient denies any suicidal homicidal ideation Intussusception intestine 08/09/2021 Assessment & Plan (08/09/2021 6:36 PM DEBLOCKER): 08/08/2021 CT abdomen/pelvis with contrast: Possible cystitis, [...] q.day Assessment & Plan (08/13/2021 9:29 AM DEBLOCKER): Blood pressure has been under control Metoprolol restarted Assessment & Plan (08/12/2021 5:49 PM DEBLOCKER): Blood pressure has been under control Metoprolol has been on hold-to allow for permissive hypertension for the next 24 hours, will restart tomorrow Assessment & Plan (08/09/2021 6:31 PM DEBLOCKER): Have reviewed 24 hour blood pressures and [...] consult: Assessment & Plan (08/09/2021 6:12 PM DEBLOCKER): CT abdomen pelvis with contrast at [facility] yesterday showed intussusception CT abdomen pelvis with [...] monitor Assessment & Plan (08/13/2021 9:29 AM DEBLOCKER): Currently in sinus rhythm. Eliquis on hold will resume on August 15. Continue with flecainide Metoprolol restarted Assessment & Plan (08/12/2021 5:54 PM DEBLOCKER): Currently in sinus rhythm. Eliquis on hold will resume on August 15. Continue with flecainide Metoprolol on hold will resume tomorrow Assessment & Plan (08/09/2021 6:18 PM DEBLOCKER): No acute events since admission Patient on Eliquis Metoprolol for rate control with hold parameters Will continue to monitor Essential tremor 10/12/2018 Assessment & Plan (08/13/2021 9:30 AM DEBLOCKER): B/l hand with tremor - no changes in strength Assessment & Plan (08/09/2021 6:30 PM DEBLOCKER): Patient reports after waking up had increase [...] consult Assessment & Plan (08/13/2021 9:30 AM DEBLOCKER): Currently in no acute exacerbation. -continue Bentyl Assessment & Plan (08/12/2021 5:47 PM DEBLOCKER): Currently in no acute exacerbation. -continue Bentyl Assessment & Plan (08/09/2021 6:15 PM DEBLOCKER): Patient on Bentyl Monitoring electrolytes Assessment & [...] ibs-d. Will get all the records from [place] and then regroup to discuss possible treatment options. Orthostatic dizziness 09/16/2016 Palpitations 07/29/2016 Migraine headache 07/29/2016 Assessment & Plan (12/18/2021 4:59 PM CDT): Started home Topamax Assessment & Plan (08/09/2021 6:17 PM DEBLOCKER): Patient not complaining of headache or migraines at this time Sumatriptan on hold Hypokalemia Encounters Date Type Department Care Team Description 03/09/2025 Telephone [facility] Surgery [address] [place] [address] Paula Peace 02/24/2025 Results Follow-Up [facility] Gastroenterology [address] 2nd Floor [address] [place] [address] Marv Earl MD Surgical pathology 02/21/2025 1:12 PM CDT Anesthesia Event [facility] [address] [place] [address] Dl Lerner MD 02/21/2025 1:00 PM CDT - 02/21/2025 1:30 PM CDT Surgery [facility] [address] [place] [address] Marv Earl MD ESOPHAGEAL BALLOON DISTENSION STUDY DIAGNOSTIC WITH PROVOCATION 02/21/2025 10:42 AM CDT - 02/21/2025 11:59 PM CDT Hospital Encounter [facility] [address] [place] [address] Dysphagia, unspecified type Discharge Disposition: Discharge to home or self care 02/21/2025 10:42 AM CDT - 02/21/2025 2:32 PM CDT Hospital Encounter [facility] [address] [place] [address] Marv Earl MD Esophageal dysphagia; Gastroesophageal reflux disease with esophagitis without hemorrhage; Rectal bleeding Discharge Disposition: Discharge to home or self care 02/14/2025 Telephone [facility] Gastroenterology [address] [place] [address] [place] [address] Rose Negron MD MRI/MRCP Order 02/13/2025 Telephone [facility] Gastroenterology [address] [place] [address] [place] [address] [place] [address] Katharine Carty 02/08/2025 Orders Only [facility] Gastroenterology [address] [place] [address] [address] [place] [address] Monique Delgado RN 02/08/2025 Documentation [facility] [address] [place] [address] [address] [place] [address] Monique Delgado, KIET adding colon to 02/21/25 procedure 02/07/2025 Orders Only [facility] Gastroenterology [address] [place] [address] 12th [place] [address] [place] [address] Rose Negron MD Abnormal CT scan, gastrointestinal tract (Primary Dx) 02/06/2025 Telephone [facility] Gastroenterology [address] [place] [address] [address] [place] [address] Monique Delgado, RN AC Hold recommendations 01/19/2025 Telephone [facility] [address] [place] [address] Magda Brooks RN 01/19/2025 Telephone [facility] Gastroenterology [address] [place] [address] [address] [place] [address] Abena Lam, KIET GI Preprocedure; Scheduling Testing/Treatment; AC hold recs 01/16/2025 Telephone [facility] Gastroenterology [address] [place] [address] [address] [place] [address] Abena Lam, KIET Scheduling Testing/Treatment; Unsuccessful Phone Call 2 01/16/2025 Telephone [facility] Specialty Services [address] [place] [address] Katharine Bee RN 01/16/2025 Telephone [facility] Gastroenterology [address] [place] [address] Floor [address] [place] [phone] Katharine Carty 01/12/2025 Telephone [facility]enterology [address] [place] [address] Medical [address] [place] [address] Abena Lam, KIET Scheduling Testing/Treatment 01/12/2025 Orders Only [facility] Minimally Invasive Surgery [address] [place] [address], [address] [place] [phone] Say Davila MD PhD Gastroesophageal reflux disease, unspecified whether esophagitis present (Primary Dx) 01/09/2025 Telephone [facility] Gastroenterology [address] [place] [address] Floor [address] [place] [phone] Marah Byrnes RMA PRE PROCEDURE ASSESSMENT 01/09/2025 Orders Only [facility] Gastroenterology [address] [place] [address] Floor [address] [place] [phone] Forest Catherine MD Esophageal dysphagia (Primary Dx); Gastroesophageal reflux disease with esophagitis without hemorrhage 01/06/2025 Orders Only [facility] Minimally Invasive Surgery [address] [place] [address] Floor, [address] [place] [phone] Say Davila MD PhD Dysphagia, unspecified type (Primary Dx) 01/03/2025 Orders Only [facility] Minimally Invasive Surgery [address] [facility] 12th Floor, [place] [address] Say Davila MD PhD Gastroesophageal reflux disease, [...] pur e alcohol) on occasion [facility] Utilities Answer Date Recorded In the past 12 months has [employer], [employer], oil, or water [employer] threatened to shut off services in your [...] on file Legal Sex Female 10:06 AM DEBLOCKER Gender Identity Female 06/17/2024 7:02 AM CDT [...] 2018 Depression Screening 08/08/2022 08/08/2021 Covid-19 Vaccine (2023-2 5 season) 2024 02/20/2021, 01/23/2021 Breast Cancer [...] Biopsy) 02/21/2025 1:49 PM CDT Narrative PATHOLOGY [facility] - 02/22/2025 7:31 PM CDT EPIC results best viewed via link to PDF [facility] Katerine Lim Laboratory [place] [address] Note to Patients: This report may contain [...] Gender: F : 1970 (Age: 54) Address: [address] [place] [address] Hospital #: [id number] Taken:02/21/2025 Received:02/21/2025 Reported: 02/22/2025 Patient Type: [facility] Service: Gastro Location: Physician(s): Chelle Carter DO Diagnosis: A. Small intestine, terminal ileum, biopsy: - Ileal mucosa with no significant abnormality. B. Colon, right, biopsy: - Colonic mucosa with focal active colitis (cryptitis). C. Colon, left, biopsy: - Colonic mucosa with no significant abnormality. [facility]/02/22/2025 15:10 By this signature, I attest that [...] x 0.1 cm. Labeled C1. Jar 0. [employer]/02/21/2025 15:54 PA(s): Natalia Morrell By this signature, I attest that the above diagnosis is based upon my personal examination of the slides(and/or other material). Addenda/Procedures The performance characteristics of some immunohistochemical stains, fluorescence in-situ hybridization tests and immunophenotyping by flow cytometry cited in this report (if any) were determined by the Surgical Pathology and Flow Cytometry Departments at [facility] as part of an ongoing software quality engineer program and in compliance with [...] Surgical Pathology and Flow Cytometry Departments of [facility]. It has not been cleared or approved by the U. S. Food and Drug Administration. IMAGES AND SCANNED DOCUMENTS, IF INCLUDED, ONLY VIEWABLE IN PDF VERSION OF REPORT us Marv Earl MD LAB PATHOLOGY ORDERABLES Fi nal Result PATHOLOGY [facility] 3rd Floor [place], [place] [phone] * Colonoscopy (02/21/2025 1:14 PM CDT) Anatomical Region Laterality Modality Other Narrative Procedure Note Marv Earl MD - 02/21/2025 1:14 PM CDT [facility]OS[facility] Patient Name: Sarahy Mays Procedure Date: 02/21/2025 1:14 PM Date of : 1970 Admit Type: Outpatient Age: 54 Gender: Female Attending MD: Marv Earl M.D. Room: [facility] ENDOSCOPY ROOM 9 Note Status: Finalized Procedure: [...] The scope was passed under direct vision.The [id number] endoscope was introduced through the anus and advanced to the terminal ileum. The colonoscopy was performed without difficulty. The patient tolerated the procedure well. The qualityof the bowel preparation was evaluated using the BBPS ([place] Bowel Preparation Scale) with scores of:Right Colon [...] pathology results. - Follow up with primary department head. - Continue home medications. - Resume previous diet. - Follow up with referring physician as previously scheduled. - In the unusual situation that you developabdominal, bleeding or other significant problems in the days following this procedure please call [phone] ask for my nurse, Abena Lam. After hours and evenings please call [phone] and speak to theGI fellow web services professional. Please tell the fellow that Dr. Earl did your procedure and that you were instructed to have the fellow call me or thephysician covering for me to discuss the management of your condition. If you have an urgent problem, please goto the nearest emergency room and have the ER doctorcall my office during the day or [facility] transfer ([phone]) center after hours and weekends to arrange admission or transfer to our facility. Attending Participation: I personally performed the entire procedure. Electronically signed by Marv Earl MD Marv Earl M.D. 02/21/2025 2:02:04 PM . Number of Addenda: 0 Note Initiated On: 02/21/2025 1:14 PM Marv Earl MD ENDOSCOPY PROCEDURES Final Result * EGD (02/21/2025 1:13 PM CDT) Anatomical Region Laterality Modality Other Narrative Procedure Note Marv Earl MD - 02/21/2025 1:13 PM CDT [facility] Patient Name: Sarahy Mays Procedure Date: 02/21/2025 1:13 PM Date of : 1970 Admit Type: Outpatient Age: 54 Gender: Female Attending MD: Marv Earl M.D. Room: [facility] ENDOSCOPY ROOM 9 Note Status: Finalized Procedure: Upper GI endoscopy Indications: Dysphagia Referring MD: Say Davila M.D. Providers: Mrav Earl M.D. Comorbidities See the other procedure [...] passed under direct vision. The [id number] endoscope was introduced through the mouth, and [...] YI study. - Follow up with primary department head and MISas previously scheduled. - Proceed with [...] Relevant to Health Maintenance Insurance [place] [address] [facility] MEDICARE [facility] Address: [address] [address] [place] [address] [facility] [facility] [employer] [facility] [employer] [facility] MEDICARE AD[facility] Address: [address] [address] [place] [address] [employer] [facility] [facility] [employer] [facility] [employer] [facility] [facility] Advance Directives For more information, please contact: [phone] Documents on File Type Date Recorded Patient Commercial Diver Expl anation ADVANCE DIRECTIVE 08/14/2021 9:12 AM Raz r of Specimen Accessioner-Medical * Full Code (Latest Code Status on [...] 9:04 AM 08/21/2023 9:04 AM Care Teams Jigsawyer Relationship Specialty Start Date End Date Mandeep Pennington DO [facility] [address] [address] PCP - General Internal Medicine 02/14/25 Mere Landa NP Nurse Practitioner 02/07/20 Tico Burton MD Surgeon General Surgery 08/09/21 Ivan Liang MD Consulting Physician General Surgery 09/09/23
--- OUTSIDE RECORDS SUMMARY | 2025-03-13 08:03 | XMS_ITS | Encounter Summary ---
Author Organization [facility] Address [address] [place] [address] Care Team Providers Care Change Management Lead Name Role Phone Mere Landa NP Unavailable [phone] Parmjit Dai MD Primary Care Provider [phone] Tico Burton MD Unavailable [phone] Ivan Liang MD Unavailable Mandeep Pennington DO Primary Care Provider [phone] Reason for Visit * Reason Onset Date Comments Scheduling Appointments 06/19/2021 confirmi ng mammogram appt Encounter Details Date Type Department Care Team (Late st Contact Info) Description 06/19/2021 Telephone [facility] [address] [place] [address] Cheryl Trejo RT Scheduling Appointments (confirming mammogram [...] file Legal Sex Female 10:06 AM DINING ROOM BUSSER Gender Identity Female 06/17/2024 7:02 AM CDT [...] COVID: Suspected 07/06/2022 07/06/2022 07/06/2022 3:52 AM DINING ROOM BUSSER COVID: Suspected 08/18/2022 08/18/2022 08/18/2022 12:59 AM DINING ROOM BUSSER COVID: Suspected 09/19/2023 09/19/2023 09/19/2023 11:01 AM DINING ROOM BUSSER C. difficile suspected 07/21/2024 07/21/202407/22 3:05 AM DINING ROOM BUSSER documented as of this encounter Care Teams Change Management Lead Relationship Specialty Start Date End Date Parmjit Dai MD PCP - General 12/31/20 02/13/25 Mandeep Pennington DO [facility] [address] [place] [address] PCP - General Internal Medicine 02/14/25 Mere Landa NP Nurse Practitioner 02/07/20 Tico Burton MD Surgeon General Surgery 08/09/21 Ivan Liang MD Consulting Physician General Surgery 09/09/23 documented as of this encounter
--- OUTSIDE RECORDS SUMMARY | 2025-03-13 08:03 | XMS_ITS | Encounter Summary ---
Author Organization [facility] Address [address] [place] [address] Phone Care Team Providers Care Plastic Production Machine Setter Name Role Phone Mere Landa NP Unavailable [phone] Tico Burton MD Unavailable [phone] Ivan Liang MD Unavailable Mandeep Pennington DO Primary Care Provider [phone] Reason for Visit * Reason Onset Date Comments Test Results 02/24/2025 Encounter Details Date Type Department Care Team (Late st Contact Info) Description 02/24/2025 Results Follow-Up [facility] Gastroenterology [address] [facility] 2nd Floor [address] [place] [address] Marv Earl MD [address] [place] [address] Surgical pathology Social History Tobacco Use Types Packs/Day Years Used Date Smoking Tobacco: Every Day Vaping Smokeless Tobacco: Never Comments:off and on Alcohol Use Standard Drinks/Week Comments No 0 (1 standard drink = 0.6 oz pur e alcohol) on occasion [facility] Utilities Answer Date Recorded In the past 12 months has [employer], gas, oil, or water [employer] threatened to shut off services in your [...] on file Legal Sex Female 10:06 AM AIRCRAFT DESIGNER Gender Identity Female 06/17/2024 7:02 AM CDT Sexual Orientation Not on file documented as of this encounter Plan of Treatment Scheduled Procedures Name Priority Associated Diagnoses Date/Ti me ESOPHAGOGASTRODUODENOSCOPY Open Access Gastroesophageal reflux disease, unspecified whether esophagitis present ESOPHAGOGASTRODUODENOSCOPY Open Access Dysphagia, unspecified type documented as of this encounter Visit Diagnoses Not on filedocumented in this encounter Care Teams Plastic Production Machine Setter Relationship Specialty Start Date End Date Mandeep Pennington DO [address] [place] [address] [address] [place] [address] PCP - General Internal Medicine 02/14/25 Mere Landa NP Nurse Practitioner 02/07/20 Tico Burton MD Surgeon General Surgery 08/09/21 Ivan Liang MD Consulting Physician General Surgery 09/09/23 documented as of this encounter
--- OUTSIDE RECORDS SUMMARY | 2025-03-13 08:04 | XMS_ITS | Clinical Summary ---
Author Organization [facility] Address [address] [place] [address] Phone Care Team Providers Care Instruction Librarian Name Role Phone Parmjit Dai MD Primary Care Provider [phone] Jazmine Kulkarni MD Unavailable [phone] Mir Spencer MD Unavailable Allergies Active Allergy [...] Comments Blood Pressure 96/66 10/29/2023 8:05 AM LATHE MECHANIC Pulse 52 10/29/2023 8:05 AM LATHE MECHANIC Temperature 36.9 C (98.4 F) 10/16/2023 8:53 AM LATHE MECHANIC Respiratory Rate 20 10/29/2023 8:05 AM LATHE MECHANIC Oxygen Saturation 100% 10/16/2023 8:53 AM LATHE MECHANIC Inhaled Oxygen Concentration - - Weight 56.7 kg (125 lb) 10/29/2023 8:05 AM LATHE MECHANIC Height 162.6 cm (5' 4) 10/29/2023 8:05 AM LATHE MECHANIC Body Mass Index 21.46 10/29/2023 8:05 AM LATHE MECHANIC Plan of Treatment Health Maintenance Due Date [...] age to complete this topic Insurance MEDICAID [place] MEDICARE C [facility] Care Teams Instruction Librarian Relationship Specialty Start Date End Date Parmjit Dai MD [address] [place] [address] [address] [place] [address] PCP - General Family Medicine 05/21/22 Jazmine Kulkarni MD [address] [place] [address] [address] [place] [address] Family Medicine 05/21/22 Mir Spencer MD [address] [place] [address] Consulting Physician Urology 10/29/23
--- OUTSIDE RECORDS SUMMARY | 2025-03-13 08:04 | XMS_ITS | Patient Health Record ---
Author Organization [facility] Address [address] [facility] [address] [place] [address] Care Team Providers Care Digital Marketing Coordinator Name Role Phone Ru Gonzales Unavailable [phone] Reason For Referral No Information Medications Medication SIG (Take, Route, Frequency, Duration) Notes Start Date End Date Status Pantoprazole Sodium 40 MG Oral 12/02/2023 Active Meclizine HCl 12.5 MG Oral 12/02/2023 Active Famotidine 20 MG Oral 12/02/2023 Ac tive busPIRone HCl 10 MG Oral 12/02/2023 Active Ondansetron HCl 8 MG Oral 12/02/2023 Active SUMAtriptan Succinate 6 MG/0.5ML Subcutaneous 12/02/2023 Active Atorvastatin Calcium 40 MG Oral 12/02/2023 Active busPIRone HCl 5 MG Oral 12/02/2023 Active Nortriptyline HCl 25 MG Oral 12/02/2023 Active Mirtazapine 15 MG TAKE 1 TABLET BY MOUTH EVERY DAY AT BEDTIME FOR 30 DAYS; Duration: 30 Active MOTEGRITY 2 MG TABLET *Reorder f rom [facility] for eRx and Interaction Alerts* 12/02/2023 Active Eliquis 5 MG Oral 12/02/2023 Active LUBIPROSTONE 24 MCG CAPSULE [facility] Interaction Alert[facility]* 12/02/2023 Active Amitriptyline HCl 10 MG Oral 12/02/2023 Active Flecainide Acetate 100 mg Oral 12/02/2023 Active Ondansetron 8 MG Oral 12/02/2023 Ac tive Metoprolol Succinate ER 25 MG Oral 12/02/2023 Active Xifaxan 550 MG Oral 12/02/2023 Acti ve Hyoscyamine Sulfate 0.125 MG Sublingual 12/02/2023 Active Dicyclomine HCl 20 MG Oral 12/02/2023 Active Acetaminophen Extra Strength 500 MG Oral 12/02/2023 Active Plan Of Treatment No Information Insurance Providers Payer Name Payer Address Payer Phone Subscriber Number Group Number Insured Name Patient Relationship to Insured Coverage Start Date Coverage End Date [employer] Benefit Plan Management Ppo [address] JUL[place]NA PANDA [id number] 2001 MARIA E NAZARIO Spouse - patient is the spouse of the insured [employer] Medicare Replacement /Advantage - Ppo [address] [address] [place] [address] [id number] LUKASZ NAZARIO Self - patient is the insured Medical (General) History Surgical History Surgery Date(Month/Year) Endometrial ablation (90218) 08/31/2011 Removal of gallbladder (15185) 3 Appendectomy (35278) 09/09/2023
== END 2025-03-13 07:59 | disposition home or self-care (01) ==
PROVIDERS: PCP Internal Medicine
DX: R93.3 Abnormal findings on diagnostic imaging of other parts of digestive tract (principal)
CPT/HCPCS: 74018; 74183; 76376

== ENCOUNTER 2025-04-25 08:08 | Outpatient (CLI) | payer OTHER, MEDICARE, SELFPAY ==
--- OUTSIDE RECORDS SUMMARY | 2024-01-27 05:00 | XMS_ITS ---
Author Organization [facility] [employer] [facility] Address [facility] [address] [facility] [address] [place] [address] Care Team Providers Care Roll Builder Name Role Phone JanetRu Unavailable [phone] Erwin De Luna Unavailable [phone] Encounters Encounter Location Date Provider Diagnosis [facility] [employer] [place] [id number] [facility] [address] [facility] [address] [place] [address] 01/27/2024 Erwin De Luna Plan Of Treatment No Information Progress Notes * JEM MAYSB:[birth year] (55 yo F)Acc No.[id number]:01/27/2024 Patient: KSENIA FELIXA Provider: Theresa De Luna LCPC :1970 A ge:53 Y S ex:Female Date:01/27/2024 Address:[address] [place] [address] Billing Information: * Procedure Codes: * Electronic signature of Preeti De uLna LCPC on 04/25/2025 at 08:17 AM CDT Sign off status: Pending * Provider: Theresa De Luna LCPC Date: 01/27/2024 Generated for Printi ng/Fadonaldog/eTransmitting on: 04/25/2025 08:17 AM CDT
--- OUTSIDE RECORDS SUMMARY | 2025-04-25 08:17 | XMS_ITS | Encounter Summary ---
Author Organization [facility] Address [address] [place] [address] Phone Care Team Providers Care Cap Lining Machine Operator Name Role Phone Mere Landa NP Unavailable [phone] Tico Burton MD Unavailable [phone] Ivan Liang MD Unavailable Mandeep Pennington DO Primary Care Provider [phone] Reason for Visit * Reason Onset Date Comments Test Results 02/24/2025 Encounter Details Date Type Department Care Team (Late st Contact Info) Description 02/24/2025 Results Follow-Up [facility] Medicine Gastroenterology [address] [facility] 2nd Floor [address] [place] [address] Marv Earl MD [address] [place] [address] Surgical pathology Social History Tobacco Use Types Packs/Day Years Used Date Smoking Tobacco: Every Day Vaping Smokeless Tobacco: Never Comments:off and on Alcohol Use Standard Drinks/Week Comments No 0 (1 standard drink = 0.6 oz pur e alcohol) on occasion [facility] Utilities Answer Date Recorded In the past 12 months has [employer], gas, oil, or water company threatened to shut off services in your home? 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 Gender Identity Female 06/17/2024 7:02 AM CDT Sexual Orientation Not on file documented as of this encounter Plan of Treatment Scheduled Procedures Name Priority Associated Diagnoses Date/Ti me ESOPHAGOGASTRODUODENOSCOPY Open Access Gastroesophageal reflux disease, unspecified whether esophagitis present ESOPHAGOGASTRODUODENOSCOPY Open Access Dysphagia, unspecified type documented as of this encounter Visit Diagnoses Not on filedocumented in this encounter Care Teams Cap Lining Machine Operator Relationship Specialty Start Date End Date Mandeep Pennington DO [facility] [address] [address] [place] [address] PCP - General Internal Medicine 02/14/25 Mere Landa NP Nurse Practitioner 02/07/20 Tico Burton MD Surgeon General Surgery 08/09/21 Ivan Liang MD Consulting Physician General Surgery 09/09/23 documented as of this encounter
--- OUTSIDE RECORDS SUMMARY | 2025-04-25 08:17 | XMS_ITS | Clinical Summary ---
Author Organization [facility] Care Team Providers Care Sld Educational Aide Name Role Phone Mere Landa NP Unavailable [phone] Tico Burton MD Unavailable [phone] Ivan Liang MD Unavailable Mandeep Pennington DO Primary Care Provider [phone] Allergies Active Allergy Reactions Criticality Noted Date [...] mouth every 12 (twelve) hours 4 Active SUMAtriptan (IMITREX) 6 mg/0.5 mL injection 4 Active busPIRone (BUSPAR) 10 mg tabletIndicatio ns:Generalized Anxiety Disorder Take 1 tablet (10 mg total) by mouth 2 (two) times a day 60 tablet 2 5 Active acetaminophen (TYLENOL) 500 mg tablet Take 1 tablet (500 mg total) by mouth every 6 (six) hours as needed [address] (PROTONIX) 40 mg EC tablet Take 1 tablet (40 mg total) by mouth 2 (two) times a day before breakfast and dinner 60 tablet 1 5 05/14/20 25 Active ondansetron (ZOFRAN) 8 mg tablet Take 0.5-1 tablets (4-8 mg total) by mouth every 6 (six) hours as needed for nausea or vomiting 20 tablet [address] (CYMBALTA) 30 mg capsule Take 1 capsule (30 mg total) by mouth daily 30 capsule 11 5 03/14/20 26 Active prucalopride (MOTEGRITY) 2 mg tablet Take 1 tablet (2 mg total) by mouth daily 30 tablet 3 5 07/12/20 Active Active Problems Problem Noted Date Diagnosed [...] 09/03/2023 Assessment & Plan (09/17/2023 9:54 AM PRESS OFFBEARER): Diet as tolerates. Continue bowel regimen if needed to avoid straining. No submerging incision for 1 more week. Light duty for another 2 weeks. Patient will call us back with any further questions or concerns. Assessment & Plan (09/03/2023 8:54 AM PRESS OFFBEARER): I will discuss her case with GI. [...] (09/10/2022): Added automatically from request for surgery [id number] Cyclical vomiting 09/05/2022 Gastritis 09/05/2022 Gastroesophageal reflux [...] 08/13/2021 Assessment & Plan (08/13/2021 9:33 AM PRESS OFFBEARER): Pt complains of pain with urination. Pt also complains of suprapubic pain. Plan - Urine analysis TIA (transient ischemic attack) 08/11/2021 Assessment & Plan (08/13/2021 9:29 AM PRESS OFFBEARER): Sarahy Mays 51-year-old female presenting with left [...] mg Assessment & Plan (08/12/2021 6:00 PM PRESS OFFBEARER): Sarahy Mays 51-year-old female presenting with left [...] recommendations Assessment & Plan (08/09/2021 6:14 PM PRESS OFFBEARER): Patient has a history of IBS with [...] agitation/anxiety Assessment & Plan (08/13/2021 9:30 AM PRESS OFFBEARER): Currently mood at baseline. Continue home med Celexa Assessment & Plan (08/12/2021 5:53 PM PRESS OFFBEARER): Currently mood at baseline. Continue home med Celexa Assessment & Plan (08/09/2021 6:30 PM PRESS OFFBEARER): Per patient has a history of bipolar depressive type Stable at this time Not currently on any medication Patient denies any suicidal homicidal ideation Intussusception intestine 08/09/2021 Assessment & Plan (08/09/2021 6:36 PM PRESS OFFBEARER): 08/08/2021 CT abdomen/pelvis with contrast: Possible cystitis, [...] q.day Assessment & Plan (08/13/2021 9:29 AM PRESS OFFBEARER): Blood pressure has been under control Metoprolol restarted Assessment & Plan (08/12/2021 5:49 PM PRESS OFFBEARER): Blood pressure has been under control Metoprolol has been on hold-to allow for permissive hypertension for the next 24 hours, will restart tomorrow Assessment & Plan (08/09/2021 6:31 PM PRESS OFFBEARER): Have reviewed 24 hour blood pressures and [...] consult: Assessment & Plan (08/09/2021 6:12 PM PRESS OFFBEARER): CT abdomen pelvis with contrast at [place] yesterday showed intussusception CT abdomen pelvis with contrast at [facility]: Showed resolution of intussusception Patient [...] monitor Assessment & Plan (08/13/2021 9:29 AM PRESS OFFBEARER): Currently in sinus rhythm. Eliquis on hold will resume on August 15. Continue with flecainide Metoprolol restarted Assessment & Plan (08/12/2021 5:54 PM PRESS OFFBEARER): Currently in sinus rhythm. Eliquis on hold will resume on August 15. Continue with flecainide Metoprolol on hold will resume tomorrow Assessment & Plan (08/09/2021 6:18 PM PRESS OFFBEARER): No acute events since admission Patient on Eliquis Metoprolol for rate control with hold parameters Will continue to monitor Essential tremor 10/12/2018 Assessment & Plan (08/13/2021 9:30 AM PRESS OFFBEARER): B/l hand with tremor - no changes in strength Assessment & Plan (08/09/2021 6:30 PM PRESS OFFBEARER): Patient reports after waking up had increase [...] consult Assessment & Plan (08/13/2021 9:30 AM PRESS OFFBEARER): Currently in no acute exacerbation. -continue Bentyl Assessment & Plan (08/12/2021 5:47 PM PRESS OFFBEARER): Currently in no acute exacerbation. -continue Bentyl Assessment & Plan (08/09/2021 6:15 PM PRESS OFFBEARER): Patient on Bentyl Monitoring electrolytes Assessment & [...] ibs-d. Will get all the records from [facility] and then regroup to discuss possible treatment options. Orthostatic dizziness 09/16/2016 Palpitations 07/29/2016 Migraine headache 07/29/2016 Assessment & Plan (12/18/2021 4:59 PM CDT): Started home Topamax Assessment & Plan (08/09/2021 6:17 PM PRESS OFFBEARER): Patient not complaining of headache or migraines at this time Sumatriptan on hold Hypokalemia Encounters Date Type Department Care Team Description 04/24/2025 Telephone [facility] Medicine Gastroenterology [address] [facility] 12th [place] [address] [place] [address] Katharine Carty 03/09/2025 Telephone [facility] Medicine Surgery [address] [facility] Floor 8 [place] [address] Paula Peace 02/24/2025 Results Follow-Up [facility] Medicine Gastroenterology [address] [facility] 2nd Floor [address] [place] [address] Marv Earl MD Surgical pathology 02/21/2025 1:12 PM CDT Anesthesia Event [facility] [address] [address] Dl Lerner MD 02/21/2025 1:00 PM CDT - 02/21/2025 1:30 PM CDT Surgery [facility] [address] [address] Marv Earl MD ESOPHAGEAL BALLOON DISTENSION STUDY DIAGNOSTIC WITH PROVOCATION 02/21/2025 10:42 AM CDT - 02/21/2025 11:59 PM CDT Hospital Encounter [facility] [address] [address] Dysphagia, unspecified type Discharge Disposition: Discharge to home or self care 02/21/2025 10:42 AM CDT - 02/21/2025 2:32 PM CDT Hospital Encounter [facility] [address] [address] Marv Earl MD Esophageal dysphagia; Gastroesophageal reflux disease with esophagitis without hemorrhage; Rectal bleeding Discharge Disposition: Discharge to home or self care 02/14/2025 Telephone [facility] Medicine Gastroenterology [address] [facility] 12th [place] [address] [place] [address] Rose Negron MD MRI/MRCP Order 02/13/2025 Telephone [facility] Medicine Gastroenterology [address] [facility] 12th [place] [address] [place] [address] Katharine Carty 02/08/2025 Orders Only [facility] Gastro[facility] [address] [place] [address] Medical Office Building [address] [place] [address] Monique Delgado, KIET 02/08/2025 Documentation [facility] Medicine Gastroenterology [address] [place] [address] Medical [address] [place] [address] Monique Delgado, KIET adding colon to 02/21/25 procedure 02/07/2025 Orders Only [facility] Medicine Gastroenterology [address] [place] [address] [place] [address] Rose Negron MD Abnormal CT scan, gastrointestinal tract (Primary Dx) 02/06/2025 Telephone [facility] Medicine Gastroenterology [address] [place] [address] Medical [address], [address] [place] [address] Monique Delgado, RN AC Hold recommendations from Last 3 Months Immunizations Immunization Administration [...] Date Comments Anxiety Depression Bipolar affect, depressed Weight loss Headache, tension-type Migraine Cyclic vomiting [...] pur e alcohol) on occasion [facility] Utilities Answer Date Recorded In the past 12 months has th e [employer], gas, oil, or water [employer] threatened to shut off services in your [...] week 09/09/2023 How often do you attend [facility] ch or orthodoxy services? Never 09/09/2023 Do you belong to any clubs o r organizations such as anglican groups, unions, fraternal or athletic groups, or [...] file Legal Sex Female 10:06 AM PRESS OFFBEARER Gender Identity Female 06/17/2024 7:02 AM CDT [...] 02/21/2025, 10/29/2022 Colon Cancer Screening-DNA Stool Discontinued 02/22/20 25, 10/29/2022 Colon Cancer Screening-FIT Discontinued 02/21/2025, Colon [...] Biopsy) 02/21/2025 1:49 PM CDT Narrative PATHOLOGY [facility] - 02/22/2025 7:31 PM CDT EPIC results best viewed via link to PDF [facility] Katerine Lim [facility] of Surgical Pathology [place] [address] Note to Patients: This report may contain [...] Gender: F : 1970 (Age: 54) Address: [address] [place], [place] [id number] Hospital #: [id number] Taken:02/21/2025 Received:02/21/2025 Reported: 02/22/2025 Patient Type: [facility] Service: Gastro Location: Physician(s): Chelle Carter DO Diagnosis: A. Small intestine, terminal ileum, biopsy: - Ileal mucosa with no significant abnormality. B. Colon, right, biopsy: - Colonic mucosa with focal active colitis (cryptitis). C. Colon, left, biopsy: - Colonic mucosa with no significant abnormality. chx/02/22/2025 15:10 By this signature, I attest that [...] x 0.1 cm. Labeled C1. Jar 0. elsw/02/21/2025 15:54 PA(s): Natalia Morrell By this signature, I attest that the above diagnosis is based upon my personal examination of the slides(and/or other material). Addenda/Procedures The performance characteristics of some immunohistochemical stains, fluorescence in-situ hybridization tests and immunophenotyping by flow cytometry cited in this report (if any) were determined by the Surgical Pathology and Flow Cytometry Departments at [facility] as part of an ongoing quality control systems manager program and in compliance with federally [...] Surgical Pathology and Flow Cytometry Departments of [facility]. It has not been cleared or approved by the U. S. Food and Drug Administration. IMAGES AND SCANNED DOCUMENTS, IF INCLUDED, ONLY VIEWABLE IN PDF VERSION OF REPORT us Marv Earl MD LAB PATHOLOGY ORDERABLES Fi nal Result PATHOLOGY [facility] 3rd Floor [place], [place] [phone] * Colonoscopy (02/21/2025 1:14 PM CDT) Anatomical Region Laterality Modality Other Narrative Procedure Note Marv Earl MD - 02/21/2025 1:14 PM CDT [facility] END[facility] Patient Name: Sarahy Mays Procedure Date: 02/21/2025 1:14 PM Date of : 1970 Admit Type: Outpatient Age: 54 Gender: Female Attending MD: Marv Earl M.D. Room: [facility] ENDOSCOPY ROOM 9 Note Status: [...] scope was passed under direct vision.The CF [id number] endoscope was introduced through the anus and advanced to the terminal ileum. The colonoscopy was performed without difficulty. The patient tolerated the procedure well. The qualityof the bowel preparation was evaluated using the BBPS (Otterbein Bowel Preparation Scale) with scores of:Right Colon [...] pathology results. - Follow up with primary creative services producer. - Continue home medications. - Resume previous diet. - Follow up with referring physician as previously scheduled. - In the unusual situation that you developabdominal, bleeding or other significant problems in the days following this procedure please call [phone] ask for my nurse, Abena Lam. After hours and evenings please call [phone] and speak to theGI fellow professor of environmental science. Please tell the fellow that Dr. Earl did your procedure and that you were instructed to have the fellow call me or thephysician covering for me to discuss the management of your condition. If you have an urgent problem, please goto the nearest emergency room and have the ER doctorcall my office during the day or [facility] transfer ([phone]) center after hours and weekends to arrange [...] Female Attending MD: Marv Earl M.D. Room: [facility] ENDOSCOPY ROOM 9 Note Status: [...] passed under direct vision. The [id number] [id number] endoscope was introduced through the mouth, and [...] YI study. - Follow up with primary creative services producer and [facility]IS[facility] previously scheduled. - Proceed with [...] There has been no suspicious interval change. Self Screening Mammogram IMG MAMMO PROCEDURES Fi nal Result from Last 3 Months or Most Recently Relevant to Health Maintenance Insurance [facility] MEDICARE ADVANTAGE [facility] UHC MEDICARE ADVANTAGE [place] [id number] [employer] Advance Directives For more information, please contact: [phone] Documents on File Type Date Recorded Patient Bottom Precipitator Operator Expl anation ADVANCE DIRECTIVE 08/14/2021 9:12 AM Raz r of Rag Inspector-Medical * Full Code (Latest Code Status on [...] 9:04 AM 08/21/2023 9:04 AM Care Teams Sld Educational Aide Relationship Specialty Start Date End Date Mandeep Pennington DO [address] [facility] [address] [place] [address] [place] [address] PCP - General Internal Medicine 02/14/25 Mere Landa V., FOCUS PULLER Nurse Practitioner 02/07/20 Tico Burton MD Surgeon General Surgery 08/09/21 Ivan Liang MD Consulting Physician General Surgery 09/09/23
--- OUTSIDE RECORDS SUMMARY | 2025-04-25 08:17 | XMS_ITS | Clinical Summary ---
Author Organization [facility] Address [address] [facility] [place] [address] Care Team Providers Care Records Management Director Name Role Phone Mandeep Pennington DO Primary Care Provider [phone] Source Comments [facility]non-owned Affiliates and Associated Physician Practices is amultiple site organization consisting of ambulatory clinics and hospital sitesin [place], [place], [place] and [place]. This disclosure is being madepursuant to the Care Everywhere program and may not contain all information available regarding this patient. Last updated 18.[facility] Allergies Active Allergy Reactions Criticality Noted Date [...] - 06/07/2024 7:12 AM CDT Performed at: [facility] [id number] Systems Qa Analyst: Edmundo Dias PhD, Phone: [phone] Rolando Castro DO LAB - CHEMISTRY ORDERABLES Final Result Performing Organization Address City/State/[facility] Co de Phone Number [facility] INSURANCE BILL [address] [place] [address] from Last 3 Months or Most Recently Relevant to Health Maintenance Insurance [employer] [facility] MANAGED MEDICARE ADV Care Teams Records Management Director Relationship Specialty Start Date End Date Mandeep Pennington DO [address] [place] [address] PCP - General Internal Medicine 06/30/24
--- OUTSIDE RECORDS SUMMARY | 2025-04-25 08:17 | XMS_ITS | Encounter Summary ---
Author Organization [facility] Address [address] [place] [address] Care Team Providers Care Dressing Machine Operator Name Role Phone Mere Landa NP Unavailable [phone] Parmjit Dai MD Primary Care Provider [phone] Tico Burton MD Unavailable [phone] Ivan Liang MD Unavailable Mandeep Pennington DO Primary Care Provider [phone] Reason for Visit * Reason Onset Date Comments Scheduling Appointments 06/19/2021 confirmi ng mammogram appt Encounter Details Date Type Department Care Team (Late st Contact Info) Description 06/19/2021 Telephone [facility] [address] [place] [address] Cheryl Trejo RT Scheduling Appointments (confirming mammogram [...] on file Legal Sex Female 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 difficile suspected 07/21/2024 07/21/202407/22 3:05 AM PRODUCE PRODUCTION TEAM MEMBER documented as of this encounter Care Teams Dressing Machine Operator Relationship Specialty Start Date End Date Parmjit Dai MD PCP - General 12/31/20 02/13/25 Mandeep Pennington DO [facility] [address] [place] [address] [place] [address] PCP - General Internal Medicine 02/14/25 Mere Landa NP Nurse Practitioner 02/07/20 Tico Burton MD Surgeon General Surgery 08/09/21 Ivan Liang MD Consulting Physician General Surgery 09/09/23 documented as of this encounter
--- OUTSIDE RECORDS SUMMARY | 2025-04-25 08:17 | XMS_ITS | Encounter Summary ---
Author Organization [facility] Address [address] [place] [address] Phone Care Team Providers Care Document Management Consultant Name Role Phone Mere Landa NP Unavailable [phone] Tico Burton MD Unavailable [phone] Ivan Liang MD Unavailable Mandeep Pennington DO Primary Care Provider [phone] Encounter Details Date Type Department Care Team (Late st Contact Info) Description 04/24/2025 Telephone [facility] [address] [facility] Advanced Medicine 12th [place] [address] [place] [address] Katharine Carty Social History Tobacco Use Types Packs/Day Years Used Date Smoking Tobacco: Every Day Vaping Smokeless Tobacco: Never Comments:off and on Alcohol Use Standard Drinks/Week Comments No 0 (1 standard drink = 0.6 oz pur e alcohol) on occasion [facility] Utilities Answer Date Recorded In the past 12 months has [employer], gas, oil, or water company threatened to [...] often do you attend chur ch or judaism services? 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 documented in this encounter Plan of Treatment Scheduled Procedures Name Priority Associated Diagnoses Date/Ti me ESOPHAGOGASTRODUODENOSCOPY Open Access Gastroesophageal reflux disease, unspecified whether esophagitis present ESOPHAGOGASTRODUODENOSCOPY Open Access Dysphagia, unspecified type documented as of this encounter Visit Diagnoses Not on filedocumented in this encounter Care Teams Document Management Consultant Relationship Specialty Start Date End Date Mandeep Pennington DO [address] [place] [address] [address] [place] [address] PCP - General Internal Medicine 02/14/25 Mere Landa NP Nurse Practitioner 02/07/20 Tico Burton MD Surgeon General Surgery 08/09/21 Ivan Liang MD Consulting Physician General Surgery 09/09/23 documented as of this encounter
--- OUTSIDE RECORDS SUMMARY | 2025-04-25 08:18 | XMS_ITS | Clinical Summary ---
Author Organization [facility] Address [address] [place] [address] Phone Care Team Providers Care Bus Attendant Name Role Phone Parmjit Dai MD Primary Care Provider [phone] Jazmine Kulkarni MD Unavailable [phone] Mir Spencer MD Unavailable Allergies Active Allergy [...] Comments Blood Pressure 96/66 10/29/2023 8:05 AM SUMATRA OPENER Pulse 52 10/29/2023 8:05 AM SUMATRA OPENER Temperature 36.9 C (98.4 F) 10/16/2023 8:53 AM SUMATRA OPENER Respiratory Rate 20 10/29/2023 8:05 AM SUMATRA OPENER Oxygen Saturation 100% 10/16/2023 8:53 AM SUMATRA OPENER Inhaled Oxygen Concentration - - Weight 56.7 kg (125 lb) 10/29/2023 8:05 AM SUMATRA OPENER Height 162.6 cm (5' 4) 10/29/2023 8:05 AM SUMATRA OPENER Body Mass Index 21.46 10/29/2023 8:05 AM SUMATRA OPENER Plan of Treatment Health Maintenance Due Date [...] age to complete this topic Insurance MED[place]ID [place] MED[place] [facility] Care Teams Bus Attendant Relationship Specialty Start Date End Date Parmjit Dai MD [address] [place] [address] [address] [place] [address] PCP - General Family Medicine 05/21/22 Jazmine Kulkarni MD [address] [place] [address] [address] [place] [address] Family Medicine 05/21/22 Mir Spencer MD [address] [place] [address] Consulting Physician Urology 10/29/23
--- OUTSIDE RECORDS SUMMARY | 2025-04-25 08:18 | XMS_ITS | Patient Health Record ---
Author Organization [facility] Address [address] [place] [address] Care Team Providers Care Senior Site Manager Name Role Phone Ru Gonzales Unavailable [phone] Reason For Referral No Information Medications Medication SIG (Take, Route, Frequency, Duration) Notes Start Date End Date Status Pantoprazole Sodium 40 MG Tablet Delayed Release Oral 12/02/2023 Active Meclizine HCl 12.5 MG Tablet Oral 12/02/2023 Active Famotidine 20 MG Tablet Oral 12/02/2023 Active busPIRone HCl 10 MG Tablet Oral 12/02/2023 Active Ondansetron HCl 8 MG Tablet Oral 12/02/2023 Active SUMAtriptan Succinate 6 MG/0.5ML Solution Auto-injector Subcutaneous 12/02/2023 Active Atorvastatin Calcium 40 MG Tablet Oral 12/02/2023 Active busPIRone HCl 5 MG Tablet Oral 12/02/2023 Active Nortriptyline HCl 25 MG Capsule Oral 12/02/2023 Active Mirtazapine 15 MG Tablet TAKE 1 TABLET BY MOUTH EVERY DAY AT BEDTIME FOR 30 DAYS; Duration: 30 Active MOTEGRITY 2 MG TABLET *Reorder f rom [facility] for eRx and Interaction Alerts* 12/02/2023 Active Eliquis 5 MG Tablet Oral 12/02/2023 Active LUBIPROSTONE 24 MCG CAPSULE *Reorder from [facility] for eRx and Interaction Alerts* 12/02/2023 Active Amitriptyline HCl 10 MG Tablet Oral 12/02/2023 Active Flecainide Acetate 100 mg Tablet Oral 12/02/2023 Active Ondansetron 8 MG Tablet Disintegrating Oral 12/02/2023 Active Metoprolol Succinate ER 25 MG Tablet Extended Release 24 Hour Oral 12/02/2023 Active Xifaxan 550 MG Tablet Oral 12/02/2023 Active Hyoscyamine Sulfate 0.125 MG Tablet Sublingual Sublingual 12/02/2023 Active Dicyclomine HCl 20 MG Tablet Oral 12/02/2023 Active Acetaminophen Extra Strength 500 MG Tablet Oral 12/02/2023 Active Social History Social History Additional Details Category Social Info Options Details Migrated Social History Migrated Social History Alcohol Intake: None 11/18/2023,Tobacco Years: Former smoker 11/18/2023 Plan Of Treatment No Information Insurance Providers Payer Name Payer Address Payer Phone Subscriber Number Group Number Insured Name Patient Relationship to Insured Coverage Start Date Coverage End Date [employer] - [facility] Benefit Plan Management Ppo [address] [place] [id number] MAIRA E NAZARIO Spouse - patient is the spouse of the insured [employer] Medicare Replacement /Advantage - Ppo [address] [address] [place] [address] [id number] LUKASZ NAZARIO Self - patient is the insured Medical (General) History Surgical History Surgery Date(Month/Year) Endometrial ablation (79368) 08/31/2011 Removal of gallbladder (68178) 3 Appendectomy (60317) 09/09/2023
--- NOTE | 2025-05-22 09:44 | WPDHOMESLEEP ---
Sleep Study - Home Unattended Date of Study: 04/25/25 Ordering Provider: Socorro Del Valle NP Interpreting Provider: Natalia Pina, DO Home Sleep Study Type: Watch PAT Height: 1.63 m Weight: 61.689 kg Body Mass Index: 23.3 Neck Circumference (inches): 13 Raymond: 12 Reason for Sleep Study Daytime hypersomnia Sleep History The patient is a 55-year-old female that had a sleep study ordered by her primary care for evaluation of sleep apnea. She denies awakening from sleep short of breath. She rarely awakens at night with heartburn, belching or cough. She denies snoring. She frequently has trouble sleeping when she has a cold. She rarely wakes up gasping for air throughout the night. She denies having breathing problems at night observed by herself or others. She constantly sweats excessively at night. She occasionally has heart palpitations or irregular heartbeats during the night. She occasionally falls asleep during the day and frequently falls asleep while driving. She occasionally experiences loss of muscle tone when extremely emotional. She denies sleep paralysis. She occasionally experiences vivid dreamlike scenes upon awakening or falling asleep. She constantly feels afraid of going to sleep. She denies having nightmares. She denies remembering her dreams. She constantly has thoughts racing through her mind. She occasionally feels sad or depressed. She constantly has anxiety. She constantly has muscular tension. She constantly notices parts of her body jerk. She occasionally kicks during the night. She constantly has crawling and aching feelings in her legs and constantly has leg pain during the night. She occasionally awakens with jaw pain in the morning. She denies grinding her teeth while asleep. She constantly is bothered by pain during the day and constantly awakened by pain during the night. She constantly wakes up feeling stiff in the morning. She constantly wakes up with sore or achy muscles. She constantly wakes up with pain in the neck, spine and other joints. She goes to bed between 10-11 p.m. every night. It takes her 15 minutes to fall asleep. She wakes up 2-3 times throughout the night to urinate and is able to fall back asleep within 15 minutes. She wakes up at 4:00 a.m. every morning. She typically gets 5-6 hours of sleep per night. She will stay in bed for 30 minutes after waking up in the morning. She currently lives with her , daughter and 2 grand children. She will consume a caffeinated beverage within 2 hours of bedtime. She denies engaging in physical exercise before bedtime. She denies reading before falling asleep. She will watch television before falling asleep. She denies taking naps in the afternoon or the evening. She quit smoking cigarettes 24 years ago. She denies alcohol use. She does use marijuana. [facility] Past Medical History Medical History Foot pain, right Achilles tendon contracture, right Chondromalacia of right knee Anemia History of TIA (transient ischemic attack) Irritable bowel syndrome with constipation History of hyperlipidemia History of atrial fibrillation History of gastroesophageal reflux (GERD) Adenomatous colon polyp Atrial fibrillation Arthritis GERD (gastroesophageal reflux disease) Celiac disease Diverticulosis Anxiety and depression Neuropathy Migraine headache Surgical History Surgical History History of endometrial ablation Hx of hernia repair Hx of laparoscopy Hx of dilation and curettage History of colonoscopy with polypectomy (03/2021) And repeat colonoscopy 2022 Status post lateral meniscectomy of right knee (07/2024) Hx of emergency section History of appendectomy History of delivery History of tubal ligation History of Gary fundoplication History of cholecystectomy Family History Family History Mother Family history of elevated blood lipids Family history of arthritis Sibling Family history of arthritis Grandparent Cerebrovascular accident Family history of cardiovascular disease Hypertension Diabetes mellitus Other Heart disease Acute myocardial infarction Father Alcoholism Mother Alcoholism Depression Anxiety Grandparent Throat cancer Cerebrovascular accident Heart problem Social History Social History Social History: She lives at home with her of 6 years. This is her 3rd marriage. She had 6 children. One son and 5 daughters. She smoked half pack of cigarettes per day since she was 14 years old but switched to vaping nicotine several years ago. She rarely drinks alcohol and only minute amounts. She uses marijuana daily. Code status: Full code (she would not want to be on the ventilator long-term or if she had no quality of life ) Surrogate decision maker: Smoking packs per day: 0.5 Smoking cigarettes per day: 10.0 Years smoked: 15 Smoking pack-years: 7.50 Smoking status: Current every day smoker Tobacco type: e-cigarettes/vaping Second hand tobacco smoke exposure: No Additional smoking assessment comments: Currently vapes. Alcohol intake: never Substance use: current Substance use type: marijuana Other substance usage details: Daily Last use: 07/30/24 Living arrangements: with family Occupation/Education: other Additional occupation/education comments: disabled Gender identity (if verbalized by the patient): Female Sexual Orientation (if Verbalized by the Patient): Straight or Heterosexual Spiritual care concerns: No Medications Home Medications ?Medication ?Instructions ?Recorded ?Confirmed ?Type aluminum-mag hydroxide-simethicone 10 ml PO QID PRN Acid Reflux 05/28/20 04/27/25 History 400 mg-400 mg-40 mg/5 mL oral susp (Mylanta Maximum Strength) simethicone 125 mg chewable tablet 125 mg PO QID PRN Abdominal 05/28/20 04/27/25 History (Gas-X Extra Strength) Discomfort apixaban 5 mg tablet (Eliquis) 5 mg PO BID 10/23/23 04/27/25 History famotidine 20 mg tablet 20 mg PO DAILY PRN Acid Reflux 10/23/23 04/27/25 History metoprolol succinate 25 mg 25 mg PO DAILY 10/23/23 04/27/25 History tablet,extended release 24 hr flecainide 100 mg tablet 100 mg PO Q12H 10/29/23 04/27/25 History buspirone 10 mg tablet 10 mg PO BID 07/07/24 04/27/25 History amitriptyline 10 mg tablet See Rx Instructions .Route 01/10/25 04/27/25 Rx .COMPLEX #30 tabs ondansetron 4 mg disintegrating 4 mg PO Q8H PRN nausea and 02/03/25 04/27/25 Rx tablet vomiting #20 tabs dicyclomine 20 mg tablet 20 mg PO TID PRN Abdominal 03/08/25 04/27/25 Rx Discomfort #15 tabs calcium carbonate [Calcium 600] PO 04/05/25 04/27/25 History cholecalciferol (vitamin D3) PO 04/05/25 04/27/25 History amoxicillin 875 mg-potassium 1 tablet PO Q12H #14 tabs 04/27/25 04/27/25 Rx clavulanate 125 mg tablet prednisone 10 mg tablet 10 mg PO BID #10 tabs 04/27/25 04/27/25 Rx Sleep Procedure The sleep study was completed using [employer] a technically adequate device with seven channels: peripheral arterial tone, actigraphy, body position, snore, respiratory movement, pulse oximetry, sleep staging, and heart rate. Prior to using the device, the patient received verbal and written instructions for its application and was provided with the help desk phone number for additional telephonic instruction with 24-hour availability of qualified personnel to answer questions. The study was scored using CMS guidelines. Sleep Architecture The total recording time is 7 hrs, 54 min. The total sleep time is 7 hrs, 15 min. Sleep latency is 22 minutes. REM latency is 97 minutes. The patient had 3 episodes of waking. Sleep architecture shows 15.4% deep sleep, 56.2% light sleep, and (as % Total Sleep Time) showed NREM (Light 56.2%; Deep 15.4%), and a 28.5% stage REM. The patient spent 1.7% of total sleep time in the supine position. Sleep efficiency was 91.77. Respiratory Analysis The overall AHI (pAHI 4%:) is 1.5. The overall AHI (pAHI 3%:) is 1.6. The central AHI is 0.0. The AHI was 1.9 in NREM and 1.0 in REM sleep. The AHI was N/A in Supine and 1.5 in Non-supine sleep. Percent of Shadi Quiñonez respirations is 0.0. Oximetry Data The oxygen desaturation index (MARGARET 4%:) is 1.3. The mean saturation is 97%, and the lowest saturation is 91%. Time spent with saturation < 88% is 0.0 minutes. Snoring Profile Snoring average intensity is 41 dB. The patient snored above 45 decibels for 19.5 minutes, 4.5% of sleep time. Cardiac Profile The average pulse rate is 51 beats per minutes. The lowest pulse rate is 39 bpm. The highest pulse rate reported is 83 bpm. Atrial fibrillation was not detected. Premature beats occur <0.1 per minute. Assessment and Plan Assessment and Plan (1) Sleep disturbance: Code(s): G47.9 - Sleep disorder, unspecified Status: Acute Assessment and Plan: The patient had an overall AHI of 1.5 with desaturation down to 91%. This is not consistent with sleep-disordered breathing. The patient's sleep history is highly suggestive of Restless Leg Syndrome. I recommend that the patient have a serum ferritin drawn for evaluation of iron deficiency anemia. If the patient has a serum ferritin less than 75 ng/mL, I recommend starting a daily iron supplement and a Vitamin C supplement for better absorption. If the serum ferritin is greater than 75 ng/mL, I recommend starting a dopamine agonist and titrating the dose until symptoms resolve. There are nonpharmacological methods to treat limb movements including daily exercise, stretching calf muscles before bed, avoiding excessive amounts of caffeine and alcohol, vitamin B supplementation, magnesium lotion massaged into legs before bed, and use of a weighted blanket. Data The data obtained during this sleep study is adequate for interpretation. Certification This sleep study has been reviewed by a board certified sleep medicine physician.
[2025-05-23 12:36] VITALS: BMI 23.3
== END 2025-04-26 10:26 | disposition home or self-care (01) ==
PROVIDERS: PCP Internal Medicine; Visit Provider Nurse Practitioner
DX: G47.9 Sleep disorder, unspecified (principal); R53.83 Other fatigue
CPT/HCPCS: 95800

== ENCOUNTER 2025-06-05 11:22 | Outpatient (CLI) | payer OTHER, MEDICARE, SELFPAY ==
[2025-06-05 12:55] LABS: Hematocrit 38.2 % (37.0-47.0); Hemoglobin 12.1 g/dL (12.0-15.0); Immature Granulocyte Percent A 0.2 % (0-0.5); Lymphocytes Absolute Auto 1.80 K/mm3 (0.9-3.2); Mean Corpuscular HGB Conc 31.7 g/dl (32-36); Mean Corpuscular Hemoglobin 30.3 pg (26-34); Mean Corpuscular Volume 95.5 fl (80-100); Nucleated Red Blood Cells Absolute Auto 0.000 K/mm3 (0.0-0.012); Nucleated Red Blood Cells Perc 0.0 % (0.0-0.2); Platelet Count Result 346 k/mm3 (150-375); Red Blood Count 4.00 M/mm3 (4.2-5.4); White Blood Count 6.7 K/mm3 (4.5-10.0)
--- OUTSIDE RECORDS SUMMARY | 2025-06-05 12:59 | XMS_ITS | Encounter Summary ---
Author Organization [facility] Address [address] [place] [address] Care Team Providers Care Drill Press Operator For Metal Name Role Phone Mere Landa NP Unavailable [phone] Parmjit Dai MD Primary Care Provider [phone] Tico Burton MD Unavailable [phone] Ivan Liang MD Unavailable Mandeep Pennington DO Primary Care Provider [phone] Reason for Visit * Reason Onset Date Comments Scheduling Appointments 06/19/2021 confirmi ng mammogram appt Encounter Details Date Type Department Care Team (Late st Contact Info) Description 06/19/2021 Telephone [facility] [address] [place] [address] Cheryl Trejo RT Scheduling Appointments (confirming mammogram [...] on file Legal Sex Female 10:06 AM FLUOROSCOPE OPERATOR Gender Identity Female 06/17/2024 7:02 AM [...] COVID: Suspected 07/06/2022 07/06/2022 07/06/2022 3:52 AM FLUOROSCOPE OPERATOR COVID: Suspected 08/18/2022 08/18/2022 08/18/2022 12:59 AM FLUOROSCOPE OPERATOR COVID: Suspected 09/19/2023 09/19/2023 09/19/2023 11:01 AM FLUOROSCOPE OPERATOR C. difficile suspected 07/21/2024 07/21/202407/22 3:05 AM FLUOROSCOPE OPERATOR documented as of this encounter Care Teams Drill Press Operator For Metal Relationship Specialty Start Date End Date Parmjit Dai MD PCP - General 12/31/20 02/13/25 Mandeep Pennington DO PCP - General Internal Medicine 02/14/25 Mere Landa NP Nurse Practitioner 02/07/20 Tico Burton MD Surgeon General Surgery 08/09/21 Ivan Liang MD Consulting Physician General Surgery 09/09/23 documented as of this encounter
--- OUTSIDE RECORDS SUMMARY | 2025-06-05 12:59 | XMS_ITS | Clinical Summary ---
Author Organization [facility] Address [address] [place] [address] Phone Care Team Providers Care Latin American Studies Professor Name Role Phone Parmjit Dai MD Primary Care Provider [phone] Jazmine Kulkarni MD Unavailable [phone] Mir Spencer MD Unavailable Allergies Active Allergy [...] Comments Blood Pressure 96/66 10/29/2023 8:05 AM IT AUDITOR Pulse 52 10/29/2023 8:05 AM IT AUDITOR Temperature 36.9 C (98.4 F) 10/16/2023 8:53 AM IT AUDITOR Respiratory Rate 20 10/29/2023 8:05 AM IT AUDITOR Oxygen Saturation 100% 10/16/2023 8:53 AM IT AUDITOR Inhaled Oxygen Concentration - - Weight 56.7 kg (125 lb) 10/29/2023 8:05 AM IT AUDITOR Height 162.6 cm (5' 4) 10/29/2023 8:05 AM IT AUDITOR Body Mass Index 21.46 10/29/2023 8:05 AM IT AUDITOR Plan of Treatment Health Maintenance Due Date Last Done Comments Hepatitis C Virus (HCV) Screening 1968 Hepatitis B Immunization (1 of 3 - 19+ 3-dose series) 1987 Pap Smear 1989 Cervical Cancer Screening (CCS) 1998 HPV/Cotest 1998 Cologuard 2013 Pneumococcal Immunization (50+ years) (1 of 1 - PCV) 2018 Zoster Immunization (1 of 2) 2018 Immunochemical Fecal Occult Blood 06/10/2024 06/10/2023 Mammogram 11/10/2024 11/11/2023, 05/20/2022 Influenza Immunization (#1) 05/01/202507/01, 07/01/2022, 06/18/2022, Additional history exists SARS-COV-2 Immunization ( - 2024- season) 2025 02/20/2021, 01/23/2021 Td Immunization Every 10 Years (Adults With [...] age to complete this topic Insurance MEDICAID [place] MEDICARE C [facility] Care Teams Latin American Studies Professor Relationship Specialty Start Date End Date Parmjit Dai MD [address] [place] [address] [address] [place] [address] PCP - General Family Medicine 05/21/22 Jazmine Kulkarni MD [address] [place] [address] [address] [place] [address] Family Medicine 05/21/22 Mir Spencer MD [address] [place] [address] Consulting Physician Urology 10/29/23
--- OUTSIDE RECORDS SUMMARY | 2025-06-05 12:59 | XMS_ITS | Clinical Summary ---
Author Organization [facility] Omar granado [facility] Address [address] [facility] [place] [place] [address] Care Team Providers Care Otm Consultant Name Role Phone Unavailable Primary Care Provider Unavailabl e Social History Tobacco Use Types Packs/Day Years Used Date Smoking Tobacco: Never Assessed Comments Unknown Sex and Gender Information Value Date Recorded Sex Assigned at Not on file Legal Sex Female 12:05 PM CDT Gender Identity Not on file Sexual Orientation Not on file Plan of Treatment Upcoming Encounters Date Type Department Care Team (Late st Contact Info) Description 09/26/2025 10:30 AM TRAY CHECKER Office Visit [facility] Oncology and Hematology - [address] [facility] [address] [address] Vicente Vail MD [address] [facility] [address] [place] [address] Health Maintenance Due Date Last Done Comments DTAP/TDAP/TD VACCINES (1 - Tdap) 1987 HEPATITIS B VACCINES (1 of 3 - 19+ 3-dose series) 02/28 HPV/Cotest (21-29) 1989 CERVICAL CANCER SCREENING 1998 HPV/Cotest (30-65) 1998 PAP SMEAR 1998 BREAST CANCER SCREENING 2008 COLORECTAL SCREENING 2013 Colorectal Cancer Screening 2013 FIT-DNA Q 3 years 2013 FIT/FOBT Q 1 year 2013 Flex Sig/CT Colonography Q 5 years 2013 ZOSTER VACCINE (1 of 2) 2018 INFLUENZA VACCINE (#1) 2025 Insurance [facility] [id number]
--- OUTSIDE RECORDS SUMMARY | 2025-06-05 12:59 | XMS_ITS | Clinical Summary ---
Author Organization [facility] Address [address] [place] [address] Care Team Providers Care Safety Council Director Name Role Phone Mandeep Pennington DO Primary Care Provider [phone] Source Comments [facility],non-owned Affiliates and Associated Physician Practices is amultiple site organization consisting of ambulatory clinics and hospital sitesin [place], [place], [place] and [place]. This disclosure is being madepursuant to the Care Everywhere program and may not contain all information available regarding this patient. Last updated 18.[facility] Allergies Active Allergy Reactions Criticality Noted Date [...] 2018 ZOSTER VACCINE (1 of 2) 2018 DEPRESSION SCREENING 08/31/2024 MEDICARE AWV CALENDAR YEAR 2024 COVID-19 VACCINE (1 - season) 2025 INFLUENZA VACCINE (#1) 2025 , 07/01/2022, 06/18/2022, [...] - 06/07/2024 7:12 AM CDT Performed at: [facility] [id number] Home Visitor: Edmundo Dias PhD, Phone: [phone] Rolando Castro DO LAB - CHEMISTRY ORDERABLES Final Result Performing Organization Address City/State/[facility] Co de Phone Number [facility] INSURANCE BILL [address] [place] [address] from Last 3 Months or Most Recently Relevant to Health Maintenance Insurance [employer] [facility] MANAGED MEDICARE ADV Care Teams Safety Council Director Relationship Specialty Start Date End Date Mandeep Pennington DO [address] [place] [address] PCP - General Internal Medicine 06/30/24
--- OUTSIDE RECORDS SUMMARY | 2025-06-05 12:59 | XMS_ITS | Clinical Summary ---
Author Organization [facility] Care Team Providers Care Aboriginal Community Council Member Name Role Phone Mere Landa NP Unavailable [phone] Tico Burton MD Unavailable [phone] Ivan Liang MD Unavailable Mandeep Pennington DO Primary Care Provider [phone] Allergies Active Allergy Reactions Criticality Noted Date [...] and dinner 60 tablet 1 5 Active ondansetron (ZOFRAN) 8 mg tablet [...] 09/03/2023 Assessment & Plan (09/17/2023 9:54 AM SERVICE CONSULTANT): Diet as tolerates. Continue bowel regimen if needed to avoid straining. No submerging incision for 1 more week. Light duty for another 2 weeks. Patient will call us back with any further questions or concerns. Assessment & Plan (09/03/2023 8:54 AM SERVICE CONSULTANT): I will discuss her case with GI. [...] (09/10/2022): Added automatically from request for surgery [id number] Cyclical vomiting 09/05/2022 Gastritis 09/05/2022 Gastroesophageal reflux [...] 08/13/2021 Assessment & Plan (08/13/2021 9:33 AM SERVICE CONSULTANT): Pt complains of pain with urination. Pt also complains of suprapubic pain. Plan - Urine analysis TIA (transient ischemic attack) 08/11/2021 Assessment & Plan (08/13/2021 9:29 AM SERVICE CONSULTANT): Sarahy Gill 51-year-old female presenting with left [...] mg Assessment & Plan (08/12/2021 6:00 PM SERVICE CONSULTANT): Sarahy Gill 51-year-old female presenting with left [...] recommendations Assessment & Plan (08/09/2021 6:14 PM SERVICE CONSULTANT): Patient has a history of IBS with [...] agitation/anxiety Assessment & Plan (08/13/2021 9:30 AM SERVICE CONSULTANT): Currently mood at baseline. Continue home med Celexa Assessment & Plan (08/12/2021 5:53 PM SERVICE CONSULTANT): Currently mood at baseline. Continue home med Celexa Assessment & Plan (08/09/2021 6:30 PM SERVICE CONSULTANT): Per patient has a history of bipolar depressive type Stable at this time Not currently on any medication Patient denies any suicidal homicidal ideation Intussusception intestine 08/09/2021 Assessment & Plan (08/09/2021 6:36 PM SERVICE CONSULTANT): 08/08/2021 CT abdomen/pelvis with contrast: Possible cystitis, [...] q.day Assessment & Plan (08/13/2021 9:29 AM SERVICE CONSULTANT): Blood pressure has been under control Metoprolol restarted Assessment & Plan (08/12/2021 5:49 PM SERVICE CONSULTANT): Blood pressure has been under control Metoprolol has been on hold-to allow for permissive hypertension for the next 24 hours, will restart tomorrow Assessment & Plan (08/09/2021 6:31 PM SERVICE CONSULTANT): Have reviewed 24 hour blood pressures and [...] consult: Assessment & Plan (08/09/2021 6:12 PM SERVICE CONSULTANT): CT abdomen pelvis with contrast at [facility] yesterday showed intussusception CT abdomen pelvis with contrast at [facility]: Showed resolution of intussusception Patient has [...] monitor Assessment & Plan (08/13/2021 9:29 AM SERVICE CONSULTANT): Currently in sinus rhythm. Eliquis on hold will resume on August 15. Continue with flecainide Metoprolol restarted Assessment & Plan (08/12/2021 5:54 PM SERVICE CONSULTANT): Currently in sinus rhythm. Eliquis on hold will resume on August 15. Continue with flecainide Metoprolol on hold will resume tomorrow Assessment & Plan (08/09/2021 6:18 PM SERVICE CONSULTANT): No acute events since admission Patient on Eliquis Metoprolol for rate control with hold parameters Will continue to monitor Essential tremor 10/12/2018 Assessment & Plan (08/13/2021 9:30 AM SERVICE CONSULTANT): B/l hand with tremor - no changes in strength Assessment & Plan (08/09/2021 6:30 PM SERVICE CONSULTANT): Patient reports after waking up had increase [...] consult Assessment & Plan (08/13/2021 9:30 AM SERVICE CONSULTANT): Currently in no acute exacerbation. -continue Bentyl Assessment & Plan (08/12/2021 5:47 PM SERVICE CONSULTANT): Currently in no acute exacerbation. -continue Bentyl Assessment & Plan (08/09/2021 6:15 PM SERVICE CONSULTANT): Patient on Bentyl Monitoring electrolytes Assessment & [...] ibs-d. Will get all the records from [place] [facility] and then regroup to discuss possible treatment options. Orthostatic dizziness 09/16/2016 Palpitations 07/29/2016 Migraine headache 07/29/2016 Assessment & Plan (12/18/2021 4:59 PM CDT): Started home Topamax Assessment & Plan (08/09/2021 6:17 PM SERVICE CONSULTANT): Patient not complaining of headache or migraines at this time Sumatriptan on hold Hypokalemia Encounters Date Type Department Care Team Description 04/24/2025 Telephone [facility] Medicine Gastroenterology [address] [place] [address] [place] [address] Katharine Carty 03/09/2025 Telephone [facility] Medicine Surgery [address] [place] [address] Paula Peace from Last 3 Months Immunizations Immunization Administration [...] 0.6 oz pur e alcohol) on occasion [facility] Utilities Answer Date Recorded In the [...] any clubs o r organizations such as religion groups, unions, fraternal or athletic groups, or [...] on file Legal Sex Female 10:06 AM SERVICE CONSULTANT Gender Identity Female 06/17/2024 7:02 AM [...] of 2) 2018 Depression Screening 08/08/2022 08/08/2021 Breast Cancer Screening-Mammogram 11/10/2024 11/11/2023, 11/11/2023, 05/20/2022, Additional history exists Covid-19 Vaccine (3 - 2024-2 6 season) 2025 02/20/2021, 01/23/2021 Influenza Vaccine (#1) 2025 , 07/01/2022, 06/18/2022, Additional history exists DTaP/Tdap/Td Vaccine (2 - Td or Tdap) 07/31/2027 07/31/2017 Colon Cancer Screening-Colonoscopy 02/21/2035 02/21/2025, 10/29/2022 Colon Cancer Screening-CT Colonography Discontinued 02/21/2025, 10/29/2022 Colon Cancer Screening-DNA Stool Discontinued 02/22/20 25, 10/29/2022 Colon Cancer Screening-FIT Discontinued 02/21/2025, Colon Cancer Screening-Sigmoidoscopy Discontinued 02/21/2025, 10/29/2022 Procedures Procedure Name Priority Date/Time Associated Diagnosis Comments COLONOSCOPY 02/21/2025 1:14 PM CDT SCREENING MAMMOGRAM BILATERAL W BONG Schedule Routine, Read Routine (OP Routine) 11/11/2023 8:54 AM CDT Screening mammogram, encounter for from Last 3 Months or Most Recently Relevant to Health Maintenance Results * Colonoscopy (02/21/2025 1:14 PM CDT) Anatomical Region Laterality Modality Other Narrative Procedure Note Marv Earl MD - 02/21/2025 1:14 PM CDT [facility] Patient Name: Sarahy Gill Procedure Date: 02/21/2025 1:14 PM Date of : 1970 Admit Type: Outpatient Age: 54 Gender: Female Attending MD: Marv Earl M.D. Room: [facility] ENDOSCOPY ROOM 9 Note Status: Finalized Procedure: [...] scope was passed under direct vision.The CF [id number] endoscope was introduced through the anus and advanced to the terminal ileum. The colonoscopy was performed without difficulty. The patient tolerated the procedure well. The qualityof the bowel preparation was evaluated using the BBPS ([place] Bowel Preparation Scale) with scores of:Right Colon [...] pathology results. - Follow up with primary medical doctor md/medical director. - Continue home medications. - Resume previous diet. - Follow up with referring physician as previously scheduled. - In the unusual situation that you developabdominal, bleeding or other significant problems in the days following this procedure please call [phone] ask for my nurse, Abena Lam. After hours and evenings please call [phone] and speak to theGI fellow hospital education coordinator. Please tell the fellow that Dr. Earl did your procedure and that you were instructed to have the fellow call me or thephysician covering for me to discuss the management of your condition. If you have an urgent problem, please goto the nearest emergency room and have the ER doctorcall my office during the day or [facility] transfer ([phone]) center after hours and weekends to arrange admission or transfer to our facility. Attending Participation: I personally performed the entire procedure. Electronically signed by Marv Earl MD Marv Earl M.D. 02/21/2025 2:02:04 PM . Number of Addenda: 0 Note Initiated On: 02/21/2025 1:14 PM Marv Earl MD ENDOSCOPY PROCEDURES Final Result * Screening Mammogram Bilateral W [...] Health Maintenance Insurance IDPA UHC MEDICARE [facility] MEDICARE ADVANTAGE [employer] ALLEGIANCE Advance Directives For more information, please contact: [phone] Documents on File Type Date Recorded Patient Manager Technical Training Expl anation ADVANCE DIRECTIVE 08/14/2021 9:12 AM [employer] Maintenance Worker-Medical * Full Code (Latest Code Status [...] 9:04 AM 08/21/2023 9:04 AM Care Teams Aboriginal Community Council Member Relationship Specialty Start Date End Date Mandeep Pennington DO PCP - General Internal Medicine 02/14/25 Mere Landa NP Nurse Practitioner 02/07/20 Tico Burton MD Surgeon General Surgery 08/09/21 Ivan Liang MD Consulting Physician General Surgery 09/09/23
[2025-06-05 13:02] LABS: Creatine Kinase 77 U/L (30-135)
[2025-06-05 13:38] LABS: Ferritin 36.20 ng/mL (11.1-264)
[2025-06-05 14:14] LABS: Vitamin B12 979.0 pg/mL (239-931)
[2025-06-06 13:09] LABS: FSH 117.0 mIU/mL (.)
== END 2025-06-05 11:23 | disposition home or self-care (01) ==
LOC: ANHGOSHLAB 11:23
PROVIDERS: PCP Internal Medicine; Visit Provider Internal Medicine
DX: M79.7 Fibromyalgia (principal); E66.1 Drug-induced obesity; D50.9 Iron deficiency anemia, unspecified
CPT/HCPCS: 36415; 82550; 82607; 82728; 82746; 83001; 85025

== ENCOUNTER 2025-06-12 22:21 | Emergency (ER) | payer OTHER, MEDICARE, SELFPAY ==
--- OUTSIDE RECORDS SUMMARY | 2024-01-27 05:00 | XMS_ITS ---
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 Name Role Phone JanetuR Unavailable [phone] Erwin De Luna Unavailable [phone] Encounters Encounter Location Date Provider Diagnosis [facility] [employer] [place] [id number] [facility] [address] [facility] [address] [place] [address] 01/27/2024 Erwin De Luna Plan Of Treatment No Information Progress Notes * JEM MAYSB:[birth year] (55 yo F)Acc No.[id number]:01/27/2024 Patient: LUKASZ FELIX Provider: Theresa De Luna LCPC :1970 A ge:53 Y S ex:Female Date:01/27/2024 Address:[address] [place], [place] [id number] Billing Information: * Procedure Codes: * Electronic signature of Preeti De Luna LCPC on 06/12/2025 at 10:22 PM CDT Sign off status: Pending * Provider: Theresa De Luna LCPC Date: 0 01/27/2024 Generated for Printi ng/Fadonaldog/eTransmitting on: 1 10:22 PM CDT
--- NOTE | ~2025-06-12 | CT_ITS ---
EXAMINATION: CTA chest abdomen pelvis DATE: 06/13/2025 05:00 INDICATION: Chest pain radiating to the back. Generalized abdominal pain. TECHNIQUE: Computed tomographic angiography (CTA) of the chest, abdomen, and pelvis was performed with 100 mL Omnipaque-350 intravenous contrast. Automated exposure control and iterative reconstruction technique were employed. The dose- length product was 434.34 mGy-cm. Maximum intensity projection 3D-r econstructions of the aorta and other arteries were constructed by the technologist on a separate workstation. COMPARISON: CT abdomen and pelvis 03/08/2025 FINDINGS: CHEST CTA: There is no pneumonia or pleural effusion. The heart size is normal. No pericardial effusion. There is mild aortic atherosclerosis. There is no pulmonary embolus. There is mild thoracic spondylosis. ABDOMEN AND PELVIS CTA: The liver and spleen are normal. There are changes of cholecystectomy. 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 The adrenal glands are normal. There is cortical thinning in the kidneys. There is a 1.5 cm cyst in right kidney. There are no dilated loops of bowel. There are changes of appendectomy. There is no significant stenosis of celiac axis, superior mesenteric artery, the renal arteries, or inferior mesenteric artery. There are no pathologically enlarged lymph nodes. There is no free intraperitoneal fluid. There is mild lumbar spondylosis. IMPRESSION: 1. No etiology for the patient's symptoms. Reviewed, dictated and finalized at location E.
--- NOTE | 2025-06-12 22:22 | ECG_ITS ---
Test Date: 2025-06-12 22:26:52 Measurements Intervals [place] Rate: 72 P: 60 CT: 159 QRS: 58 QRSD: 82 T: 58 QT: 419 QTc: 461 Interpretive Statements SINUS RHYTHM BASELINE ARTIFACT- I, II, III, AVR, AVL, AVF, V1-V6 NORMAL ECG Compared to ECG 03/07/2025 23:43:11 No significant changes Electronically Signed On 06-13-2025 05:33:23 CDT by Cabrera Moya D.O.
--- OUTSIDE RECORDS SUMMARY | 2025-06-12 22:22 | XMS_ITS | Clinical Summary ---
Author Organization [facility] Address [address] [place] [address] Care Team Providers Care Center Line Cutter Operator Name Role Phone Mandeep Pennington DO Primary Care Provider [phone] Source Comments [facility],non-owned Affiliates and Associated Physician Practices is amultiple site organization consisting of ambulatory clinics and hospital sitesin [place], [place], [place] and [place]. This disclosure is being madepursuant to the Care Everywhere program and may not contain all information available regarding this patient. Last updated 18.[facility] Allergies Active Allergy Reactions Criticality Noted Date [...] - 06/07/2024 7:12 AM CDT Performed at: [address] [id number] Aerospace Manager: Edmundo Dias PhD, Phone: [phone] Rolando Castro DO LAB - CHEMISTRY ORDERABLES Final Result Performing Organization Address City/State/[facility] Co de Phone Number [facility] INSURANCE BILL [address] [place] [address] from Last 3 Months or Most Recently Relevant to Health Maintenance Insurance [employer] [facility] MANAGED MEDICARE ADV Care Teams Center Line Cutter Operator Relationship Specialty Start Date End Date Mandeep Pennington DO [address] [place] [address] PCP - General Internal Medicine 06/30/24
--- OUTSIDE RECORDS SUMMARY | 2025-06-12 22:22 | XMS_ITS | Clinical Summary ---
Author Organization [facility] Omar granado [facility] Address [address] [place] [address] Care Team Providers Care Neon Light Installer Name Role Phone Unavailable Primary Care Provider [...] st Contact Info) Description 09/26/2025 10:30 AM ELECTRIC TRANSFER OPERATOR Office Visit [facility] Oncology and Hematology - [place] [facility] [address] [address] Vicente Vail MD [address] [place] [address] Health Maintenance Due Date Last [...] 2) 2018 INFLUENZA VACCINE (#1) 2025 Insurance [facility] [address] [place] [address]
--- OUTSIDE RECORDS SUMMARY | 2025-06-12 22:22 | XMS_ITS | Encounter Summary ---
Author Organization [facility] Address [address] [place] [address] Care Team Providers Care Customer Care Team Coach Name Role Phone Mere Landa NP Unavailable [phone] Parmjit Dai MD Primary Care Provider [phone] Tico Burton MD Unavailable [phone] Ivan Liang MD Unavailable Mandeep Pennington DO Primary Care Provider Reason for Visit * Reason Onset Date Comments Scheduling Appointments 06/19/2021 confirmi ng mammogram appt Encounter Details Date Type Department Care Team (Late st Contact Info) Description 06/19/2021 Telephone [facility] [address] [place] [id number] Cheryl Trejo RT Scheduling Appointments (confirming mammogram [...] on file Legal Sex Female 10:06 AM BAGGAGE SMASHER Gender Identity Female 06/17/2024 7:02 AM CDT [...] COVID: Suspected 07/06/2022 07/06/2022 07/06/2022 3:52 AM BAGGAGE SMASHER COVID: Suspected 08/18/2022 08/18/2022 08/18/2022 12:59 AM BAGGAGE SMASHER COVID: Suspected 09/19/2023 09/19/2023 09/19/2023 11:01 AM BAGGAGE SMASHER C. difficile suspected 07/21/2024 07/21/202407/22 3:05 AM BAGGAGE SMASHER documented as of this encounter Care Teams Customer Care Team Coach Relationship Specialty Start Date End Date Parmjit Dai MD PCP - General 12/31/20 02/13/25 Mandeep Pennington DO PCP - General Internal Medicine 02/14/25 Mere Landa NP Nurse Practitioner 02/07/20 Tico Burton MD Surgeon General Surgery 08/09/21 Ivan Liang MD Consulting Physician General Surgery 09/09/23 documented as of this encounter
--- OUTSIDE RECORDS SUMMARY | 2025-06-12 22:23 | XMS_ITS | Clinical Summary ---
Author Organization [facility] Address [address] [place] [address] Phone Care Team Providers Care First Aid Nurse Name Role Phone Parmjit Dai MD Primary Care Provider [phone] Jazmine Kulkarni MD Unavailable [phone] Mir Spencer MD Unavailable Allergies Active Allergy [...] Comments Blood Pressure 96/66 10/29/2023 8:05 AM TRACK ANNOUNCER Pulse 52 10/29/2023 8:05 AM TRACK ANNOUNCER Temperature 36.9 C (98.4 F) 10/16/2023 8:53 AM TRACK ANNOUNCER Respiratory Rate 20 10/29/2023 8:05 AM TRACK ANNOUNCER Oxygen Saturation 100% 10/16/2023 8:53 AM TRACK ANNOUNCER Inhaled Oxygen Concentration - - Weight 56.7 kg (125 lb) 10/29/2023 8:05 AM TRACK ANNOUNCER Height 162.6 cm (5' 4) 10/29/2023 8:05 AM TRACK ANNOUNCER Body Mass Index 21.46 10/29/2023 8:05 AM TRACK ANNOUNCER Plan of Treatment Health Maintenance Due Date [...] this topic Insurance MEDICAID [place] MEDICARE C [facility] COUNT INCLUDES THE [facility] Care Teams First Aid Nurse Relationship Specialty Start Date End Date Parmjit Dai MD [address] [place] [address] [address] [place] [address] PCP - General Family Medicine 05/21/22 Jazmine Kulkarni MD [address] [place] [address] [address] [place] [address] Family Medicine 05/21/22 Mir Spencer MD [address] [place] [address] Consulting Physician Urology 10/29/23
--- OUTSIDE RECORDS SUMMARY | 2025-06-12 22:23 | XMS_ITS | Patient Health Record ---
Author Organization [facility] [employer] [facility] Address [address] [place] [address] Care Team Providers Care Honing Machine Set Up Operator Tool Name Role Phone Ru Gonzales Unavailable [phone] Reason For Referral No Information Medications Medication [...] MOTEGRITY 2 MG TABLET *Reorder f rom [facility] for eRx and Interaction Alerts* 12/02/2023 Active Eliquis 5 MG Tablet Oral 12/02/2023 Active LUBIPROSTONE 24 MCG CAPSULE *Reorder from [facility] for eRx and Interaction Alerts* 12/02/2023 Active [...] Start Date Coverage End Date Cigna - [facility] Benefit Plan Management Ppo [address] [place] [id number] MARIA E NAZARIO Spouse - patient is the spouse of the insured [employer] Medicare Replacement /Advantage - Ppo [address] [address] [place] [address] [id number] LUKASZ NAZARIO Self - patient is the insured Medical (General) History Surgical History Surgery Date(Month/Year) Endometrial ablation (79773) 08/31/2011 Removal of gallbladder (07526) 3 Appendectomy (85532) 09/09/2023
[2025-06-12 22:29] VITALS: BP 121/65; PULSE 72; RESP 20; TEMP 37.3; O2SAT 100
[2025-06-13] VITALS (12 sets, daily range): BP systolic 101–128; BP diastolic 61–93; PULSE 60–77; RESP 10–23; TEMP 36.5; O2SAT 90–100
[2025-06-13] MEDS: ONDANSETRON INJ 4 MG/2 ML VIAL IV PUSH (04:02)
[2025-06-13 04:14] LABS: Hematocrit 37.4 % (37.0-47.0); Hemoglobin 12.4 g/dL (12.0-15.0); Immature Granulocyte Percent A 0.4 % (0-0.5); Lymphocytes Absolute Auto 1.97 K/mm3 (0.9-3.2); Mean Corpuscular HGB Conc 33.2 g/dl (32-36); Mean Corpuscular Hemoglobin 30.4 pg (26-34); Mean Corpuscular Volume 91.7 fl (80-100); Nucleated Red Blood Cells Absolute Auto 0.000 K/mm3 (0.0-0.012); Nucleated Red Blood Cells Perc 0.0 % (0.0-0.2); Platelet Count Result 352 k/mm3 (150-375); Red Blood Count 4.08 M/mm3 (4.2-5.4); White Blood Count 10.5 K/mm3 (4.5-10.0)
[2025-06-13 04:26] LABS: Alanine Aminotransferase 27 U/L (6-35); Albumin Level 5.1 g/dL (3.5-5.1); Alkaline Phosphatase 88 U/L (38-126); Anion Gap 14 mmol/L (4-12); Aspartate Amino Transferase 41 U/L (14-36); Bilirubin,Total 0.8 mg/dL (0.2-1.3); Blood Urea Nitrogen 8 mg/dL (7-17); Calcium 9.9 mg/dL (8.4-10.2); Carbon Dioxide 23 mmol/L (22-30); Chloride 104 mmol/L (98-107); Estimated Glomerular Filt Rate > 60; Glucose 113 mg/dL (65-110); Lipase 164 U/L (23-300); Potassium 3.9 mmol/L (3.4-5.0); Sodium 141 mmol/L (137-145); Total Protein 9.1 g/dL (6.3-8.2)
[2025-06-13] MEDS: HYDROmorphone HCL INJ (*CRX) 1 MG/ML SYR 0.5 MG IV PUSH (04:46)
[2025-06-13] MEDS: LACTATED RINGERS 1,000 ML 999 ML IV CONT (04:47)
[2025-06-13 05:04] LABS: Troponin I < 0.012 ng/mL (0.000-0.034)
--- NOTE | 2025-06-13 06:56 | ED.GENADULT ---
HPI - General Adult General Chief complaint: Nausea/Vomiting/Diarrhea <Willi Campbell MD - Last Filed: 06/13/25 07:00> Stated complaint: cp, nausea <Willi Campbell MD - Last Filed: 06/13/25 07:00> Time Seen by Provider: 06/13/25 04:15 <Willi Campbell MD - Last Filed: 06/13/25 07:00> History of Present Illness HPI narrative: This is a 55-year-old female with history of IBS and colitis presenting for multiple symptoms. Patient says that she has been having nausea vomiting and diarrhea with watery diarrhea with mucus. Associated symptoms include subjective fever and chills, diffuse body aches, central chest pain radiating to her back. <Willi Campbell MD - Last Filed: 06/13/25 07:00> Related Data Home medications: Home Medications ?Medication ?Instructions ?Recorded ?Confirmed ?Last Taken ?Type aluminum-mag hydroxide-simethicone 10 ml PO QID PRN Acid Reflux 05/28/20 06/05/25 07/23/24 History 400 mg-400 mg-40 mg/5 mL oral susp (Mylanta Maximum Strength) simethicone 125 mg chewable tablet 125 mg PO QID PRN Abdominal 05/28/20 06/05/25 04/24/21 21:00 History (Gas-X Extra Strength) Discomfort apixaban 5 mg tablet (Eliquis) 5 mg PO BID 10/23/23 06/05/25 07/30/24 History metoprolol succinate 25 mg 25 mg PO DAILY 10/23/23 06/05/25 07/30/24 History tablet,extended release 24 hr flecainide 100 mg tablet 100 mg PO Q12H 10/29/23 06/05/25 07/30/24 History buspirone 10 mg tablet 10 mg PO BID 07/07/24 06/05/25 07/30/24 History calcium carbonate [Calcium 600] PO 04/05/25 06/05/25 Unknown History cholecalciferol (vitamin D3) PO 04/05/25 06/05/25 Unknown History <Willi Campbell MD - Last Filed: 06/13/25 07:00> Allergies/adverse reactions: Allergies Allergy/AdvReac Type Severity Reaction Status Date / Time prochlorperazine AdvReac Severe Confusion Verified 06/05/25 10:26 metoclopramide (From Reglan) AdvReac Intermediate anxiety Verified 06/05/25 10:26 azithromycin AdvReac Unknown STOMACH Verified 06/05/25 10:26 UPSET promethazine (From Phenergan) AdvReac Jittery Verified 06/05/25 10:26 <Willi Campbell MD - Last Filed: 06/13/25 07:00> [facility] Past Medical History Medical History: Medical History Foot pain, right Achilles tendon contracture, right Chondromalacia of right knee Anemia History of TIA (transient ischemic attack) Irritable bowel syndrome with constipation History of hyperlipidemia History of atrial fibrillation History of gastroesophageal reflux (GERD) Adenomatous colon polyp Atrial fibrillation Arthritis GERD (gastroesophageal reflux disease) Celiac disease Diverticulosis Anxiety and depression Neuropathy Migraine headache <Willi Campbell MD - Last Filed: 06/13/25 07:00> Surgical History Surgical History: Surgical History History of endometrial ablation Hx of hernia repair Hx of laparoscopy Hx of dilation and curettage History of colonoscopy with polypectomy (03/2021) And repeat colonoscopy 2022 Status post lateral meniscectomy of right knee (07/2024) Hx of emergency section History of appendectomy History of delivery History of tubal ligation History of Gary fundoplication History of cholecystectomy <Willi Campbell MD - Last Filed: 06/13/25 07:00> Family History Family History: Family History Mother Family history of elevated blood lipids Family history of arthritis Sibling Family history of arthritis Grandparent Cerebrovascular accident Family history of cardiovascular disease Hypertension Diabetes mellitus Other Heart disease Acute myocardial infarction Father Alcoholism Mother Alcoholism Depression Anxiety Grandparent Throat cancer Cerebrovascular accident Heart problem <Willi Campbell MD - Last Filed: 06/13/25 07:00> Social History Social History: Social History Social History: She lives at home with her of 6 years. This is her 3rd marriage. She had 6 children. One son and 5 daughters. She smoked half pack of cigarettes per day since she was 14 years old but switched to vaping nicotine several years ago. She rarely drinks alcohol and only minute amounts. She uses marijuana daily. Code status: Full code (she would not want to be on the ventilator long-term or if she had no quality of life ) Surrogate decision maker: Smoking packs per day: 0.5 Smoking cigarettes per day: 10.0 Years smoked: 15 Smoking pack-years: 7.50 Smoking status: Current every day smoker Tobacco type: e-cigarettes/vaping Second hand tobacco smoke exposure: No Additional smoking assessment comments: Currently vapes. Alcohol intake: never Substance use: current Substance use type: marijuana Other substance usage details: Daily Last use: 07/30/24 Living arrangements: with family Occupation/Education: other Additional occupation/education comments: disabled Gender identity (if verbalized by the patient): Female Sexual Orientation (if Verbalized by the Patient): Straight or Heterosexual Spiritual care concerns: No <Willi Campbell MD - Last Filed: 06/13/25 07:00> Exam Narrative: APPEARANCE: No apparent distress. Head: atraumatic. EYES: EOMI, NOSE: Atraumatic NECK: Trachea midline RESPIRATORY: No increased rate of breathing clear to auscultation CARDIOVASCULAR: RRR, no peripheral edema ABDOMINAL: Diffusely tender with no guarding or rebound. MUSCULOSKELETAl: No obvious deformities NEURO: Alert. Moving 4/4 extremities SKIN:: Warm, dry. Normal color PSYCHIATRIC: Normal affect <Willi Campbell MD - Last Filed: 06/13/25 07:00> Course Course Emergency Course: Patient signed out to me pending result of urinalysis, 2nd troponin, and viral swab. Second troponin was normal. Viral swab was negative though it was given in report that suspicion for acute viral syndrome was likely diagnosis. Urinalysis showed sterile pyuria. I did assess patient at bedside who does report that she has been having dysuria and urinary frequency. For this reason, we will treat as a urinary tract infection. Does reflex to culture. Past culture on that grew something was reviewed. It grew E coli that was in general pansensitive although resistant to Bactrim. Will give Macrobid as well as pyridium. Discussed side effects with patient. She has a primary care physician Dr. Carl. I discussed that her CTA was negative. She reports that she had pain at her umbilicus as suprapubic area shortly after CT scan. Not present currently. <Eri Martinez MD - Last Filed: 06/13/25 08:52> Vital Signs Vital signs: Vital Signs Temperature 99.1 F 06/12/25 22:29 Pulse Rate 72 06/12/25 22:29 Respiratory Rate 20 06/12/25 22:29 Blood Pressure 121/65 06/12/25 22:29 Pulse Oximetry 100 06/12/25 22:29 Oxygen Delivery Room Air 06/12/25 22:29 Temperature 99.1 F 06/12/25 22:29 Pulse Rate 60 06/13/25 06:19 Respiratory Rate 10 L 06/13/25 06:19 Blood Pressure 108/66 06/13/25 06:19 Pulse Oximetry 100 06/13/25 06:19 Oxygen Delivery Room Air 06/12/25 22:29 <Willi Campbell MD - Last Filed: 06/13/25 07:00> Vital Signs Temperature 99.1 F 06/12/25 22:29 Pulse Rate 72 06/12/25 22:29 Respiratory Rate 20 06/12/25 22:29 Blood Pressure 121/65 06/12/25 22:29 Pulse Oximetry 100 06/12/25 22:29 Oxygen Delivery Room Air 06/12/25 22:29 Temperature 99.1 F 06/12/25 22:29 Pulse Rate 60 06/13/25 06:19 Respiratory Rate 10 L 06/13/25 06:19 Blood Pressure 108/66 06/13/25 06:19 Pulse Oximetry 100 06/13/25 06:19 Oxygen Delivery Room Air 06/12/25 22:29 <Eri Martinez MD - Last Filed: 06/13/25 08:52> Medical Decision Making MDM Narrative Medical decision making narrative: -Course: 55-year-old female presenting with a multitude of symptoms ranging from abdominal pain, chest pain, nausea vomiting diarrhea and body aches. Broad workup ordered. Patient given symptomatic treatment. Patient will be signed out to the oncoming physician pending completion of her workup. -DDX includes but is not limited to: Viral syndrome, pneumonia, colitis, gastroenteritis, vascular pathology PE, ACS, intra-abdominal pathology -Co-morbidities complicating care: Anxiety depression, IBS, colitis, AFib on Eliquis <Willi Campbell MD - Last Filed: 06/13/25 07:00> Vital Signs Vital Signs: Vital Signs Temperature 99.1 F 06/12/25 22:29 Pulse Rate 72 06/12/25 22:29 Respiratory Rate 20 06/12/25 22:29 Blood Pressure 121/65 06/12/25 22:29 Pulse Oximetry 100 06/12/25 22:29 Oxygen Delivery Room Air 06/12/25 22:29 Temperature 99.1 F 06/12/25 22:29 Pulse Rate 60 06/13/25 06:19 Respiratory Rate 10 L 06/13/25 06:19 Blood Pressure 108/66 06/13/25 06:19 Pulse Oximetry 100 06/13/25 06:19 Oxygen Delivery Room Air 06/12/25 22:29 <Willi Campbell MD - Last Filed: 06/13/25 07:00> Vital Signs Temperature 99.1 F 06/12/25 22:29 Pulse Rate 72 06/12/25 22:29 Respiratory Rate 20 06/12/25 22:29 Blood Pressure 121/65 06/12/25 22:29 Pulse Oximetry 100 06/12/25 22:29 Oxygen Delivery Room Air 06/12/25 22:29 Temperature 99.1 F 06/12/25 22:29 Pulse Rate 60 06/13/25 06:19 Respiratory Rate 10 L 06/13/25 06:19 Blood Pressure 108/66 06/13/25 06:19 Pulse Oximetry 100 06/13/25 06:19 Oxygen Delivery Room Air 06/12/25 22:29 <Eri Martinez MD - Last Filed: 06/13/25 08:52> Lab Data Result diagrams: 06/13/25 04:04 06/13/25 04:04 <Willi Campbell MD - Last Filed: 06/13/25 07:00> Labs: Lab Results 06/13/25 06/13/25 06/13/25 Range/Units 04:04 06:32 06:42 WBC 10.5 H (4.5-10.0) K/mm3 RBC 4.08 L (4.2-5.4) M/mm3 Hgb 12.4 (12.0-15.0) g/dL Hct 37.4 (37.0-47.0) % MCV 91.7 (80-100) fl MCH 30.4 (26-34) pg MCHC 33.2 (32-36) g/dl RDW 12.9 (11.5-14.5) % Plt Count 352 (150-375) k/mm3 MPV 9.9 (7.4-10.4) fl Immature Gran % (Auto) 0.4 (0-0.5) % Neut % (Auto) 73.1 (45.5-73.1) % Lymph % (Auto) 18.8 (18.3-44.2) % [place] % (Auto) 7.3 (2.6-8.5) % Eos % (Auto) 0.1 (0-4.4) % Baso % (Auto) 0.3 (0.2-1.2) % Lymph # (Auto) 1.97 (0.9-3.2) K/mm3 [place] # (Auto) 0.8 H (0.1-0.6) K/mm3 Eos # (Auto) 0.0 (0-0.3) K/mm3 Baso # (Auto) 0.0 (0.0-0.1) K/mm3 Abs Immat Gran (auto) 0.04 H (0.00-0.031) K/mm3 Absolute Neuts (auto) 7.7 H (1.3-6.7) K/mm3 Absolute Nucleated RBC 0.000 (0.0-0.012) K/mm3 Nucleated RBC % 0.0 (0.0-0.2) % Sodium 141 (137-145) mmol/L Potassium 3.9 (3.4-5.0) mmol/L Chloride 104 (98-107) mmol/L Carbon Dioxide 23 (22-30) mmol/L Anion Gap 14 H (4-12) mmol/L BUN 8 (7-17) mg/dL Creatinine 0.81 (0.7-1.0) mg/dL Estim Creat Clear Calc Not Reportable Estimated GFR > 60 (59 - ) Glucose 113 H (65-110) mg/dL Calcium 9.9 (8.4-10.2) mg/dL Total Bilirubin 0.8 (0.2-1.3) mg/dL AST 41 H (14-36) U/L ALT 27 (6-35) U/L Alkaline Phosphatase 88 (38-126) U/L Troponin I < 0.012 (0.000-0.034) ng/mL Total Protein 9.1 H (6.3-8.2) g/dL Albumin 5.1 (3.5-5.1) g/dL Lipase 164 (23-300) U/L Urine Color Yellow (Yellow) Urine Appearance Clear (Clear) Urine pH 8.5 (5.0-9.0) Ur Specific [place] > 1.045 H (1.001-1.035) Urine Protein Trace (Negative) mg/dL Urine Glucose (UA) Negative (Negative) mg/dL Urine Ketones Trace H (Negative) mg/dL Ur Blood (Man) Negative (Negative) Urine Nitrate Negative (Negative) Urine Bilirubin Negative (Negative) Urine Urobilinogen 1.0 (<2.0) mg/dL Leukocyte Esterase Rfl 2+ H (Negative) NEHA/UL Urine RBC 0-2 (0-2) /hpf Urine WBC 11-20 H (0-3) /hpf Ur Squamous Epith Cells None seen (Few) /hpf Urine Bacteria None seen /hpf Urine Casts 0-2 Influenza A (RT-PCR) Negative (Negative) Influenza B (RT-PCR) Negative (Negative) RSV (RT-PCR) Negative (Negative) SARS-CoV-2 RNA (RT-PCR) Negative (Negative) 06/13/25 Range/Units 07:54 WBC (4.5-10.0) K/mm3 RBC (4.2-5.4) M/mm3 Hgb (12.0-15.0) g/dL Hct (37.0-47.0) % MCV (80-100) fl MCH (26-34) pg MCHC (32-36) g/dl RDW (11.5-14.5) % Plt Count (150-375) k/mm3 MPV (7.4-10.4) fl Immature Gran % (Auto) (0-0.5) % Neut % (Auto) (45.5-73.1) % Lymph % (Auto) (18.3-44.2) % [place] % (Auto) (2.6-8.5) % Eos % (Auto) (0-4.4) % Baso % (Auto) (0.2-1.2) % Lymph # (Auto) (0.9-3.2) K/mm3 [place] # (Auto) (0.1-0.6) K/mm3 Eos # (Auto) (0-0.3) K/mm3 Baso # (Auto) (0.0-0.1) K/mm3 Abs Immat Gran (auto) (0.00-0.031) K/mm3 Absolute Neuts (auto) (1.3-6.7) K/mm3 Absolute Nucleated RBC (0.0-0.012) K/mm3 Nucleated RBC % (0.0-0.2) % Sodium (137-145) mmol/L Potassium (3.4-5.0) mmol/L Chloride (98-107) mmol/L Carbon Dioxide (22-30) mmol/L Anion Gap (4-12) mmol/L BUN (7-17) mg/dL Creatinine (0.7-1.0) mg/dL Estim Creat Clear Calc Estimated GFR (59 - ) Glucose (65-110) mg/dL Calcium (8.4-10.2) mg/dL Total Bilirubin (0.2-1.3) mg/dL AST (14-36) U/L ALT (6-35) U/L Alkaline Phosphatase (38-126) U/L Troponin I < 0.012 (0.000-0.034) ng/mL Total Protein (6.3-8.2) g/dL Albumin (3.5-5.1) g/dL Lipase (23-300) U/L Urine Color (Yellow) Urine Appearance (Clear) Urine pH (5.0-9.0) Ur Specific [place] (1.001-1.035) Urine Protein (Negative) mg/dL Urine Glucose (UA) (Negative) mg/dL Urine Ketones (Negative) mg/dL Ur Blood (Man) (Negative) Urine Nitrate (Negative) Urine Bilirubin (Negative) Urine Urobilinogen (<2.0) mg/dL Leukocyte Esterase Rfl (Negative) NEHA/UL Urine RBC (0-2) /hpf Urine WBC (0-3) /hpf Ur Squamous Epith Cells (Few) /hpf Urine Bacteria /hpf Urine Casts Influenza A (RT-PCR) (Negative) Influenza B (RT-PCR) (Negative) RSV (RT-PCR) (Negative) SARS-CoV-2 RNA (RT-PCR) (Negative) <Willi Campbell MD - Last Filed: 06/13/25 07:00> Lab Results 06/13/25 06/13/25 06/13/25 Range/Units 04:04 06:32 06:42 WBC 10.5 H (4.5-10.0) K/mm3 RBC 4.08 L (4.2-5.4) M/mm3 Hgb 12.4 (12.0-15.0) g/dL Hct 37.4 (37.0-47.0) % MCV 91.7 (80-100) fl MCH 30.4 (26-34) pg MCHC 33.2 (32-36) g/dl RDW 12.9 (11.5-14.5) % Plt Count 352 (150-375) k/mm3 MPV 9.9 (7.4-10.4) fl Immature Gran % (Auto) 0.4 (0-0.5) % Neut % (Auto) 73.1 (45.5-73.1) % Lymph % (Auto) 18.8 (18.3-44.2) % [place] % (Auto) 7.3 (2.6-8.5) % Eos % (Auto) 0.1 (0-4.4) % Baso % (Auto) 0.3 (0.2-1.2) % Lymph # (Auto) 1.97 (0.9-3.2) K/mm3 [place] # (Auto) 0.8 H (0.1-0.6) K/mm3 Eos # (Auto) 0.0 (0-0.3) K/mm3 Baso # (Auto) 0.0 (0.0-0.1) K/mm3 Abs Immat Gran (auto) 0.04 H (0.00-0.031) K/mm3 Absolute Neuts (auto) 7.7 H (1.3-6.7) K/mm3 Absolute Nucleated RBC 0.000 (0.0-0.012) K/mm3 Nucleated RBC % 0.0 (0.0-0.2) % Sodium 141 (137-145) mmol/L Potassium 3.9 (3.4-5.0) mmol/L Chloride 104 (98-107) mmol/L Carbon Dioxide 23 (22-30) mmol/L Anion Gap 14 H (4-12) mmol/L BUN 8 (7-17) mg/dL Creatinine 0.81 (0.7-1.0) mg/dL Estim Creat Clear Calc Not Reportable Estimated GFR > 60 (59 - ) Glucose 113 H (65-110) mg/dL Calcium 9.9 (8.4-10.2) mg/dL Total Bilirubin 0.8 (0.2-1.3) mg/dL AST 41 H (14-36) U/L ALT 27 (6-35) U/L Alkaline Phosphatase 88 (38-126) U/L Troponin I < 0.012 (0.000-0.034) ng/mL Total Protein 9.1 H (6.3-8.2) g/dL Albumin 5.1 (3.5-5.1) g/dL Lipase 164 (23-300) U/L Urine Color Yellow (Yellow) Urine Appearance Clear (Clear) Urine pH 8.5 (5.0-9.0) Ur Specific [place] > 1.045 H (1.001-1.035) Urine Protein Trace (Negative) mg/dL Urine Glucose (UA) Negative (Negative) mg/dL Urine Ketones Trace H (Negative) mg/dL Ur Blood (Man) Negative (Negative) Urine Nitrate Negative (Negative) Urine Bilirubin Negative (Negative) Urine Urobilinogen 1.0 (<2.0) mg/dL Leukocyte Esterase Rfl 2+ H (Negative) NEHA/UL Urine RBC 0-2 (0-2) /hpf Urine WBC 11-20 H (0-3) /hpf Ur Squamous Epith Cells None seen (Few) /hpf Urine Bacteria None seen /hpf Urine Casts 0-2 Influenza A (RT-PCR) Negative (Negative) Influenza B (RT-PCR) Negative (Negative) RSV (RT-PCR) Negative (Negative) SARS-CoV-2 RNA (RT-PCR) Negative (Negative) 06/13/25 Range/Units 07:54 WBC (4.5-10.0) K/mm3 RBC (4.2-5.4) M/mm3 Hgb (12.0-15.0) g/dL Hct (37.0-47.0) % MCV (80-100) fl MCH (26-34) pg MCHC (32-36) g/dl RDW (11.5-14.5) % Plt Count (150-375) k/mm3 MPV (7.4-10.4) fl Immature Gran % (Auto) (0-0.5) % Neut % (Auto) (45.5-73.1) % Lymph % (Auto) (18.3-44.2) % [place] % (Auto) (2.6-8.5) % Eos % (Auto) (0-4.4) % Baso % (Auto) (0.2-1.2) % Lymph # (Auto) (0.9-3.2) K/mm3 [place] # (Auto) (0.1-0.6) K/mm3 Eos # (Auto) (0-0.3) K/mm3 Baso # (Auto) (0.0-0.1) K/mm3 Abs Immat Gran (auto) (0.00-0.031) K/mm3 Absolute Neuts (auto) (1.3-6.7) K/mm3 Absolute Nucleated RBC (0.0-0.012) K/mm3 Nucleated RBC % (0.0-0.2) % Sodium (137-145) mmol/L Potassium (3.4-5.0) mmol/L Chloride (98-107) mmol/L Carbon Dioxide (22-30) mmol/L Anion Gap (4-12) mmol/L BUN (7-17) mg/dL Creatinine (0.7-1.0) mg/dL Estim Creat Clear Calc Estimated GFR (59 - ) Glucose (65-110) mg/dL Calcium (8.4-10.2) mg/dL Total Bilirubin (0.2-1.3) mg/dL AST (14-36) U/L ALT (6-35) U/L Alkaline Phosphatase (38-126) U/L Troponin I < 0.012 (0.000-0.034) ng/mL Total Protein (6.3-8.2) g/dL Albumin (3.5-5.1) g/dL Lipase (23-300) U/L Urine Color (Yellow) Urine Appearance (Clear) Urine pH (5.0-9.0) Ur Specific [place] (1.001-1.035) Urine Protein (Negative) mg/dL Urine Glucose (UA) (Negative) mg/dL Urine Ketones (Negative) mg/dL Ur Blood (Man) (Negative) Urine Nitrate (Negative) Urine Bilirubin (Negative) Urine Urobilinogen (<2.0) mg/dL Leukocyte Esterase Rfl (Negative) NEHA/UL Urine RBC (0-2) /hpf Urine WBC (0-3) /hpf Ur Squamous Epith Cells (Few) /hpf Urine Bacteria /hpf Urine Casts Influenza A (RT-PCR) (Negative) Influenza B (RT-PCR) (Negative) RSV (RT-PCR) (Negative) SARS-CoV-2 RNA (RT-PCR) (Negative) <Eri Martinez MD - Last Filed: 06/13/25 08:52> Discharge Plan Discharge Clinical Impression: Abnormal urinalysis, Dysuria <Willi Campbell MD - Last Filed: 06/13/25 07:00> Patient Disposition: Home <Willi Campbell MD - Last Filed: 06/13/25 07:00> Condition: Stable <Willi Campbell MD - Last Filed: 06/13/25 07:00> Instructions: Antibiotic Form, Urinary Tract Infection in Women (DC), Viral Syndrome (ED), Dysuria (ED) <Willi Campbell MD - Last Filed: 06/13/25 07:00> Additional Instructions: As we discussed, your urinalysis was abnormal. Given you are having symptoms you are being treated for urinary tract infection. Urine is currently being cultured. You received 1st dose of antibiotic as well as pyridium while in the emergency department the rest the course has been prescribed. Take the entire course. Pyridium/phenazopyridine can help with the pain you are experiencing from a urinary tract infection. It can discolor your urine and tears (turn them orange). Do not wear contact lenses while taking this medication. Follow-up with primary care physician. Return to the emergency department any new or worsening symptoms. <Willi Campbell MD - Last Filed: 06/13/25 07:00> Patient Language: Croatian <Willi Campbell MD - Last Filed: 06/13/25 07:00> Prescriptions: New phenazopyridine [Pyridium] 100 mg tablet 100 mg PO TID PRN (Reason: pain) Qty: 5 0RF Rx Instructions: rec'd first dose iN ED nitrofurantoin macrocrystal 100 mg capsule 100 mg PO Q12H 5 Days Qty: 9 0RF Rx Instructions: must administer with a meal/food; first dose given in ED 10 AM No Action metoprolol succinate 25 mg tablet extended release 24 hr 25 mg PO DAILY Eliquis 5 mg tablet 5 mg PO BID flecainide 100 mg tablet 100 mg PO Q12H calcium carbonate [Calcium 600] PO cholecalciferol (vitamin D3) PO gabapentin 100 mg capsule 200 mg PO QHS Qty: 60 2RF Rx Instructions: take two hours before desired sleep time buspirone 10 mg tablet 10 mg PO BID simethicone [Gas-X Extra Strength] 125 mg Tablet,Chewable 125 mg PO QID PRN (Reason: Abdominal Discomfort) Patient Comments: Patient states that she takes one between meals. alum-mag hydroxide-simeth [Mylanta Maximum Strength] 400-400-40 mg/5 mL Suspension 10 ml PO QID PRN (Reason: Acid Reflux) Patient Comments: Patient states she takes in between meals and before bed. dicyclomine 20 mg tablet 20 mg PO TID PRN (Reason: Abdominal Discomfort) Qty: 15 0RF amitriptyline 10 mg tablet See Rx Instructions .ROUTE .COMPLEX Qty: 30 5RF Dose Instruction: TAKE 1 TABLET BY MOUTH EVERYDAY AT BEDTIME Rx Instructions: TAKE 1 TABLET BY MOUTH EVERYDAY AT BEDTIME ondansetron 4 mg tablet,disintegrating 4 mg PO Q8H PRN (Reason: nausea and vomiting) Qty: 20 0RF <Willi Campbell MD - Last Filed: 06/13/25 07:00> Follow-up/Referrals: Mandeep Pennington DO [Primary Care Provider, Internal Medicine] <Willi Campbell MD - Last Filed: 06/13/25 07:00> Stand Alone Forms: Work/School Release IP <Willi Campbell MD - Last Filed: 06/13/25 07:00> Time of Disposition: 08:51 <Willi Campbell MD - Last Filed: 06/13/25 07:00> 08:51 <Eri Martinez MD - Last Filed: 06/13/25 08:52>
[2025-06-13 07:03] LABS: Add Urine Microscopic? YES; Appearance Urine Clear (Clear); Glucose Urine UA Negative (Negative); Leukocyte Esterase Ur 2+ LEU/UL (Negative); Nitrate Urine Negative (Negative); Non Pathogenic Casts 0-2; Specific Grav Ur > 1.045 (1.001-1.035)
[2025-06-13 07:14] LABS: Influenza A QL RT-PCR Negative (Negative); Influenza B QL RT-PCR Negative (Negative); RSV RNA, RT-PCR Negative (Negative); SARS-CoV-2 RNA PCR Negative (Negative)
--- NOTE | 2025-06-13 07:50 | ECG_ITS ---
Test Date: 2025-06-13 07:54:23 Measurements Intervals [place] Rate: 51 P: -19 TX: 156 QRS: 10 QRSD: 70 T: 18 QT: 452 QTc: 417 Interpretive Statements SINUS BRADYCARDIA WITH SINUS ARRHYTHMIA BASELINE ARTIFACT- I, II, III, AVR, AVL, AVF, V1-V6 BORDERLINE ECG Compared to ECG 06/12/2025 22:26:52 HEART RATE HAS DECREASED Electronically Signed On 06-13-2025 07:56:11 CDT by Cabrera Moya D.O.
[2025-06-13 08:27] LABS: Troponin I < 0.012 ng/mL (0.000-0.034)
[2025-06-13] MEDS: PHENAZOPYRIDINE HCL 100 MG TABLET PO (08:56)
[2025-06-13] MEDS: NITROFURANTOIN MONOHYD MACROCR 100 MG CAP PO (08:56)
== END 2025-06-13 09:01 | disposition home or self-care (01) ==
PROVIDERS: Emergency Medicine; Emergency Provider Student in an Organized Health Care Education/Training Program; PCP Internal Medicine
DX: R30.0 Dysuria (principal); R82.998 Other abnormal findings in urine; Z20.822 Contact with and (suspected) exposure to COVID-19; R00.1 Bradycardia, unspecified; D64.9 Anemia, unspecified; E78.5 Hyperlipidemia, unspecified; K21.9 Gastro-esophageal reflux disease without esophagitis; M19.90 Unspecified osteoarthritis, unspecified site; K57.90 Diverticulosis of intestine, part unspecified, without perforation or abscess without bleeding; F41.9 Anxiety disorder, unspecified; F32.A Depression, unspecified
CPT/HCPCS: 36415; 71275; 74174; 80053; 81001; 83690; 84484; 85025; 87086; 87637; 93005; 96361; 96374; 96375; 99284; A9270; J1171; J2405; J7120; Q9967

== ENCOUNTER 2025-06-27 08:39 | Outpatient (NON) | payer OTHER, MEDICARE, SELFPAY ==
--- OUTSIDE RECORDS SUMMARY | 2024-01-27 05:00 | XMS_ITS ---
Author Organization [facility] [employer] [facility] Address [facility] [address] [facility] [address] [place] [address] Care Team Providers Care Ux Research Associate Name Role Phone JanetRu Unavailable [phone] Erwin De Luna Unavailable [phone] Encounters Encounter Location Date Provider Diagnosis [facility] [employer] [place] [id number] [facility] [address] [facility] [address] [place] [address] 01/27/2024 Erwin De Luna Plan Of Treatment No Information Progress Notes * JEM MAYSB:[birth year] (55 yo F)Acc No.[id number]:01/27/2024 Patient: KSENIA FELIXA Provider: Theresa De Luna LCPC :1970 A ge:53 Y S ex:Female Date:01/27/2024 Address:[address] [place], [place] [id number] Billing Information: * Procedure Codes: * Electronic signature of Preeti De Luna LCPC on 06/27/2025 at 08:57 AM CDT Sign off status: Pending * Provider: Theresa De Luna LCPC Date: 0 01/27/2024 Generated for Printi ng/Fadonaldog/eTransmitting on: 1 08:57 AM CDT
--- OUTSIDE RECORDS SUMMARY | 2025-06-27 08:57 | XMS_ITS | Clinical Summary ---
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
--- OUTSIDE RECORDS SUMMARY | 2025-06-27 08:57 | XMS_ITS | Encounter Summary ---
Author Organization [facility] Address [address] [place] [address] Phone Care Team Providers Care Practice Architect Name Role Phone Mere Landa NP Unavailable [phone] Tico Burton MD Unavailable [phone] Ivan Liang MD Unavailable Mandeep Pennington DO Primary Care Provider Reason for Visit * Reason Onset Date Comments GI Preprocedure 06/23/2025 Encounter Details Date Type Department Care Team (Late st Contact Info) Description 06/23/2025 Documentation [facility] Medicine Gastroenterology [address] [place] [address] Medical Office Building [address] [place] [address] Evelyn Kerns LPN GI Preprocedure Social History Tobacco Use Types Packs/Day Years Used Date Smoking Tobacco: Every Day Vaping Passive Smoke Exposure: Never Smokeless Tobacco: Never Comments:off and on Alcohol Use Standard Drinks/Week Comments No 0 (1 standard drink = 0.6 oz pur e alcohol) on occasion [facility] Utilities Answer Date Recorded In the past 12 months has [employer] electric, gas, oil, or water company threatened [...] often do you attend chur ch or episcopal services? Never 09/09/2023 Do you belong to [...] on file Legal Sex Female 10:06 AM KITMAN Gender Identity Female 06/17/2024 7:02 AM CDT Sexual Orientation Not on file documented as of this encounter Progress Notes * Evelyn Kerns, KAVITHA - 06/23/2025 10:04 AM CDT PROCEDURE Type: Colonoscopy Indication: Loose stools/Screening Colonoscopy/Hx Colitis Referring Physician: Gina Date Referred: CLINICAL ASSESSMENT [x] Clinical assessment obtained via phone call with patient []COVID/Flu Screening questions []BMI>45, Weight >350 lbs [x] Patient had GI procedure/CPAP clinic/GI clinic <30 days (if Yes, no medical screening questions needed unless new clinical issues in last 30 days) Medical screening questions: GI: Previous COLON or EGD: Hx of Polyps, Hilton, Barretts:yes Hx of Constipation:Yes Have you ever required a two day prep? Yes PSYCH/Behavioral Hx: No [place] has limited security Notes: PACEMAKER/ICD Y/N: [...] diabetes medication management with prescribing physician GLP MEDICATIONS Y/N: No/NA Day of the week medication taken Significant GI Symptoms (Nausea, Vomiting, Indigestion, Bloating) while taking GLP-1? (choose one) [] No - Instructed to avoid taking the dose the day of their procedure. [] Yes, BUT - These GI symptoms are expected to have resolved by the day of procedure. Instructed to avoid taking a dose the day of their procedure. [] Yes, AND - These GI symptoms are expected to be present on the day of procedure. Instructed to discuss holding GLP-1 the week before their procedure with their ordering provider. Letter Sent to Ordering Physician. Diet Instructions (at minimum for all cases) [] Patient given 24-hour clear liquid diet instructions. BLOOD THINNERS/ANTICOAG/ANTIPLATELET (BESIDES ASA) Medication: Samantha Physician contacted for hold order/date sent: Dr. Tarik Michael Hold order Method sent: Moovit Fax Date hold received: Hold instructions: CONTINUE ASPIRIN INFORMATION REQUESTED []Imaging: []Medical Progress Note/H&P []Medication list []Other: PATIENT OPTIMIZATION []Physician reviewing escalation: []CPAP: Date scheduled: Outcome : [] Location limitations: Scheduling Scheduling location limitations: Conditioning Coach needed [] NA Language: POA [] NA Name: Required extended education:no SPECIAL PROCEDURE INSTRUCTIONS Scheduling Notes Procedure information Date of procedure: 07/10/25 Time of procedure: 729 Arrival time: 629 Location: [facility] Proceduralist: Migdalia Instructions Method of instructions: MyChart and Mailed Copy []Confirmation of ride/assembler rubber footwear []Post anesthesia restrictions given []NPO Instructions: []Diet Instructions: []Take non-blood thinner prescription meds that morning []Bring med list, photo ID, insurance card, no valuables []Bring COVID vaccination card (if vaccinated) Bowel Prep Prep prescribed: Method of Bowel Prep (RX): Lauren Fuentes PA P [facility] Pool She also needs repeat colonoscopy but cannot tolerate the Golytely prep. Can we do Miralax then lowvolume prep? documented in this encounter Plan of Treatment Upcoming Encounters Date Type Department Care Team (Late st Contact Info) Description 07/10/2025 7:30 AM KITMAN Hospital Encounter [facility] Endoscopy [id number] [address] Rose Negron MD [address] [place] [address] 07/10/2025 7:30 AM KITMAN - 07/10/2025 8:15 AM KITMAN Surgery [facility] Endoscopy [id number] [address] [address] Rose Negron MD [address] [place] [address] COLONOSCOPY Scheduled Procedures Name Priority Associated Diagnoses Date/Ti me COLONOSCOPY Encounter for screening colonoscopy History of colitis Loose stools 07/10/2025 7:30 AM KITMAN ESOPHAGOGASTRODUODENOSCOPY Open Access Gastroesophageal reflux disease, unspecified whether esophagitis present ESOPHAGOGASTRODUODENOSCOPY Open Access Dysphagia, unspecified type documented as of this encounter Visit Diagnoses Diagnosis Encounter for screening colonoscopy- Primary History of colitis Loose stools Abnormal feces Encounter for screening colonoscopy History of colitis Loose stools Abnormal feces Encounter for screening colonoscopy History of colitis Loose stools Abnormal feces documented in this encounter Orders Case Request Count Last Ordered Date First Orde red Date CASE REQUEST GI 1 06/23/2025 documented in this encounter Care Teams Practice Architect Relationship Specialty Start Date End Date Mandeep Pennington DO PCP - General Internal Medicine 02/14/25 Mere Landa NP Nurse Practitioner 02/07/20 Tico Burton MD Surgeon General Surgery 08/09/21 Ivan Liang MD Consulting Physician General Surgery 09/09/23 documented as of this encounter
--- OUTSIDE RECORDS SUMMARY | 2025-06-27 08:57 | XMS_ITS | Clinical Summary ---
Author Organization [facility] Care Team Providers Care Superintendent Operations Division Name Role Phone Mere Landa NP Unavailable [phone] Tico Burton MD Unavailable [phone] Ivan Liang MD Unavailable Mandeep Pennington DO Primary Care Provider Allergies Active Allergy Reactions Criticality Noted Date [...] (25 mg total) by mouth daily Active flecainide (TAMBOCOR) 100 mg tablet TAKE 1 TABLET BY MOUTH TWICE DAILY. START TAKING Saturday 07/07 2 Active dicyclomine (BENTYL) 20 mg tablet Take 1 tablet (20 mg total) by mouth 4 (four) times a day as needed (abdominal pain/cramping) 360 capsule 3 3 Active docusate sodium (COLACE) 100 mg capsuleIndicat ions:constipat ion Take 2 capsules (200 mg total) by mouth nightly Active meclizine (ANTIVERT) 12.5 mg tablet Take 1 tablet (12.5 mg total) by mouth 3 (three) times a day as needed 4 Active SUMAtriptan (IMITREX) 6 mg/0.5 mL injection 4 Active busPIRone (BUSPAR) 10 mg tabletIndicati ons:Generalize d Anxiety Disorder Take 1 tablet (10 mg [...] nausea or vomiting 20 tablet 5 Active amitriptyline (ELAVIL) 10 mg tablet Take 1 tablet (10 mg total) by mouth nightly 5 Active gabapentin (NEURONTIN) 100 mg capsule Take 1 capsule (100 mg total) by mouth nightly 5 Active simethicone (MYLICON) 125 mg chewable tablet Take 1 tablet (125 mg total) by mouth as needed 0 Active atorvastatin (LIPITOR) 40 mg tabletIndicati ons:hyperlipid emia Take 1 tablet (40 mg total) by mouth daily 30 tablet 1 1 06/16/20 25 Discontin ued(Patie nt Reported) albuterol HFA (PROVENTIL HFA,VENTOLIN HFA,PROAIR HFA) 90 mcg/actuation inhaler 2 puffs every 4 (four) hours as needed 3 06/16/20 25 Discontin ued(Thera py completed ) famotidine (PEPCID) 20 mg tablet Take 1 tablet (20 mg total) by mouth daily as needed for indigestion or heartburn 180 tablet 3 3 06/16/20 25 Discontin ued(Thera py completed ) cephalexin (KEFLEX) 500 mg capsule Take 1 capsule (500 mg total) by mouth every 12 (twelve) hours 4 06/16/20 25 Discontin ued(Thera py completed ) ondansetron (ZOFRAN) 8 mg tablet Take 0.5-1 tablets (4-8 mg total) by mouth every 6 (six) hours as needed for nausea or vomiting 20 tablet 5 06/06/20 25 Discontin ued(Reord er) DULoxetine DR (CYMBALTA) 30 mg capsule Take 1 capsule (30 mg total) by mouth daily 30 capsule 11 5 06/16/20 25 Discontin ued(Thera py completed ) prucalopride (MOTEGRITY) 2 mg tablet Take 1 tablet (2 mg total) by mouth daily 30 tablet 3 5 06/16/20 25 Discontin ued(Thera py completed ) Active Problems Problem Noted Date Diagnosed Date Encounter for screening colonoscopy 06/23/2025 History of colitis 06/23/2025 Loose stools 06/23/2025 Rectal bleeding 01/19/2025 Dysphagia 01/06/2025 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 Continue bowel regimen if needed to avoid straining. No submerging incision for 1 more week. Light duty for another 2 weeks. Patient will call us back with any further questions or concerns. Assessment & Plan (09/03/2023 8:54 AM AEROSPACE TECHNICIAN): I will discuss her case with GI. [...] (09/10/2022): Added automatically from request for surgery [id number] Cyclical vomiting 09/05/2022 Gastritis 09/05/2022 Gastroesophageal reflux [...] 08/13/2021 Assessment & Plan (08/13/2021 9:33 AM AEROSPACE TECHNICIAN): Pt complains of pain with urination. Pt also complains of suprapubic pain. Plan - Urine analysis TIA (transient ischemic attack) 08/11/2021 Assessment & Plan (08/13/2021 9:29 AM AEROSPACE TECHNICIAN): Sarahy Elise Gill 51-year-old female presenting with left facial [...] mg Assessment & Plan (08/12/2021 6:00 PM AEROSPACE TECHNICIAN): Sarahy Gill 51-year-old female presenting with left [...] recommendations Assessment & Plan (08/09/2021 6:14 PM AEROSPACE TECHNICIAN): Patient has a history of IBS with [...] agitation/anxiety Assessment & Plan (08/13/2021 9:30 AM AEROSPACE TECHNICIAN): Currently mood at baseline. Continue home med Celexa Assessment & Plan (08/12/2021 5:53 PM AEROSPACE TECHNICIAN): Currently mood at baseline. Continue home med Celexa Assessment & Plan (08/09/2021 6:30 PM AEROSPACE TECHNICIAN): Per patient has a history of bipolar depressive type Stable at this time Not currently on any medication Patient denies any suicidal homicidal ideation Intussusception intestine 08/09/2021 Assessment & Plan (08/09/2021 6:36 PM AEROSPACE TECHNICIAN): 08/08/2021 CT abdomen/pelvis with contrast: Possible cystitis, [...] q.day Assessment & Plan (08/13/2021 9:29 AM AEROSPACE TECHNICIAN): Blood pressure has been under control Metoprolol restarted Assessment & Plan (08/12/2021 5:49 PM AEROSPACE TECHNICIAN): Blood pressure has been under control Metoprolol has been on hold-to allow for permissive hypertension for the next 24 hours, will restart tomorrow Assessment & Plan (08/09/2021 6:31 PM AEROSPACE TECHNICIAN): Have reviewed 24 hour blood pressures and [...] consult: Assessment & Plan (08/09/2021 6:12 PM AEROSPACE TECHNICIAN): CT abdomen pelvis with contrast at [place] yesterday showed intussusception CT abdomen pelvis with contrast at [facility]: Showed resolution of intussusception Patient has [...] monitor Assessment & Plan (08/13/2021 9:29 AM AEROSPACE TECHNICIAN): Currently in sinus rhythm. Eliquis on hold will resume on August 15. Continue with flecainide Metoprolol restarted Assessment & Plan (08/12/2021 5:54 PM AEROSPACE TECHNICIAN): Currently in sinus rhythm. Eliquis on hold will resume on August 15. Continue with flecainide Metoprolol on hold will resume tomorrow Assessment & Plan (08/09/2021 6:18 PM AEROSPACE TECHNICIAN): No acute events since admission Patient on Eliquis Metoprolol for rate control with hold parameters Will continue to monitor Essential tremor 10/12/2018 Assessment & Plan (08/13/2021 9:30 AM AEROSPACE TECHNICIAN): B/l hand with tremor - no changes in strength Assessment & Plan (08/09/2021 6:30 PM AEROSPACE TECHNICIAN): Patient reports after waking up had increase [...] consult Assessment & Plan (08/13/2021 9:30 AM AEROSPACE TECHNICIAN): Currently in no acute exacerbation. -continue Bentyl Assessment & Plan (08/12/2021 5:47 PM AEROSPACE TECHNICIAN): Currently in no acute exacerbation. -continue Bentyl Assessment & Plan (08/09/2021 6:15 PM AEROSPACE TECHNICIAN): Patient on Bentyl Monitoring electrolytes Assessment & [...] ibs-d. Will get all the records from [facility] and then regroup to discuss possible treatment options. Orthostatic dizziness 09/16/2016 Palpitations 07/29/2016 Migraine headache 07/29/2016 Assessment & Plan (12/18/2021 4:59 PM CDT): Started home Topamax Assessment & Plan (08/09/2021 6:17 PM AEROSPACE TECHNICIAN): Patient not complaining of headache or migraines at this time Sumatriptan on hold Hypokalemia Encounters Date Type Department Care Team Description 06/23/2025 Documentation [facility] Medicine Gastroenterology [address] [facility] [address] [place] [address] Evelyn Kerns LPN GI Preprocedure 06/22/2025 Results Follow-Up [facility] Medicine Gastroenterology [address] [facility] [address] [place] [address] Lauren Fuentes PA MR Body Outside Consult 06/21/2025 Orders Only [facility] Medicine Gastroenterology [address] [facility] [address] [place] [address] Lauren Fuentes PA 06/20/2025 7:12 PM CDT - 06/20/2025 11:59 PM CDT Hospital Encounter [facility] ([facility]) [address] [place] [address] Diagnosis unknown Discharge Disposition: Discharge to home or self care 06/16/2025 11:20 AM CDT - 06/16/2025 11:59 PM CDT Hospital Encounter [facility] at [facility] [address] [place] [address] Loose stools Discharge Disposition: Discharge to home or self care 06/16/2025 10:40 AM CDT Office Visit [facility] Medicine Gastroenterology [address] [facility] 2[address] [place] [address] Lauren Fuentes PA Loose stools (Primary Dx); Colitis; Gastroesophageal reflux disease without esophagitis; Regurgitation of food; Dyssynergic defecation; Bloating; Pancreatic divisum; Celiac artery stenosis 06/06/2025 6:16 PM CDT - 06/06/2025 11:59 PM CDT Hospital Encounter [facility] ([facility]) [address] [place] [address] Discharge Disposition: Discharge to home or self care 04/24/2025 Telephone [facility] Medicine Gastroenterology [address] [place] [address] Advanced Medicine 12th [place] [address] [place] [address] Katharine Carty from Last 3 Months Immunizations Immunization Administration [...] 0.6 oz pur e alcohol) on occasion [employer] Utilities Answer Date Recorded In the past 12 months has [employer], gas, oil, or water [employer] threatened to shut off services in your [...] on file Legal Sex Female 10:06 AM AEROSPACE TECHNICIAN Gender Identity Female 06/17/2024 7:02 AM [...] F) 06/16/2025 10:18 AM CDT Respiratory Rate 16 02/21/2025 2:18 PM CDT Oxygen Saturation 100% 06/16/2025 10:18 AM CDT Inhaled Oxygen Concentration - - Weight 63.6 kg (140 lb 3.2 oz) 06/16/2025 10:18 AM CDT Height 164.6 cm (5' 4.8) 06/16/2025 10:18 AM CD T Body Mass Index 23.47 06/16/2025 10:18 AM CDT Plan of Treatment Upcoming Encounters Date Type Department Care Team (Late st Contact Info) Description 07/10/2025 7:30 AM AEROSPACE TECHNICIAN Hospital Encounter [facility] Endoscopy [id number] [address] [address] Rose Negron MD [address] [place] [address] 07/10/2025 7:30 AM AEROSPACE TECHNICIAN - 07/10/2025 8:15 AM AEROSPACE TECHNICIAN Surgery [facility]oscopy [id number] [address] Rose Negron MD [address] [place] [address] COLONOSCOPY Scheduled Procedures Name Priority Associated Diagnoses Date/Ti me COLONOSCOPY Encounter for screening colonoscopy History of colitis Loose stools 07/10/2025 7:30 AM AEROSPACE TECHNICIAN ESOPHAGOGASTRODUODENOSCOPY Open Access Gastroesophageal reflux disease, unspecified whether esophagitis present ESOPHAGOGASTRODUODENOSCOPY Open Access Dysphagia, unspecified type Health Maintenance Due Date Last Done Comments Cervical Cancer Screening 1970 Hepatitis C Screening 1970 Hepatitis B Screening 1986 Regular Well Visit/Exam 18-64 1986 Pneumococcal vaccine <65 (1 of 2 - PCV) 1987 Zoster Vaccine (1 of 2) 2018 Depression Screening 08/08/2022 08/08/2021 Breast Cancer Screening-Mammogram 11/10/2024 024, 05/20/2022 Covid-19 Vaccine (3 - 2024-2 6 season) [...] Procedure Name Priority Date/Time Associated Diagnosis Comments MR BODY OUTSIDE CONSULT Routine 06/20/2025 7:12 PM CDT Diagnosis unknown XR KUB Schedule Routine, Read Routine (OP Routine) 06/16/2025 11:25 AM CDT Loose stools MR BODY OUTSIDE REFERENCE Routine 06/06/2025 6:16 PM CDT COLONOSCOPY 02/21/2025 1:14 PM CDT SCREENING MAMMOGRAM BILATERAL W BONG Schedule Routine, Read Routine (OP Routine) 11/11/2023 8:54 AM CDT Screening mammogram, encounter for from Last 3 Months or Most Recently Relevant to Health Maintenance Results * MR Body Outside Consult (06/20/2025 7:12 PM CDT) Anatomical Region Laterality Modality Body N/A Magnetic Resonan ce 06/21/2025 12:2 9 PM CDT Impressions 06/21/2025 10:22 PM CDT Study terminated early reportedly due to patient discomfort. Within these limitations, no significant abnormality within the abdomen. The findings, conclusions and recommendations within this report do not replace the initial findings, conclusions and recommendations made at the facility where the study was performed based upon the imaging and clinical condition at that time. Comparison with the prior report and clinical history is necessary. The provided images may or may not represent the [place] source data set and thus may contain changes that may lower the accuracy of this second-opinion interpretation. Dictated by: Shoshana Bradley M.D. The radiology attending physician has personally reviewed this study, and had reviewed and/or edited this written report and agrees with it. Electronically signed by: Gracy Ferrera M.D. Narrative 06/21/2025 10:22 PM CDT EXAMINATION: RADIOLOGY CONSULTATION ON OUTSIDE IMAGING STUDY STUDY INITIALLY PERFORMED: 03/13/2025 at [facility]. TYPE OF STUDY: Multiple MR images of the abdomen without intravenous contrast are provided at the time of this interpretation. CONTRAST ROUTE: No contrast was administered. The protocol was adequate to address the clinical question. The outside final report was not available at the time of this second opinion interpretation. TYPE OF CONSULTATION: Consult on outside imaging study with images submitted through Outside Image Sharing Service DATE OF CONSULTATION: 06/21/2025 10:22 AM HISTORY: abdominal pain ; history of IBS-mixed; alternating diarrhea and constipation with bloating, sensation of fullness after cholecystectomy, nausea, sensation of regurgitation and food getting stuck in the chest with choking. She is s/p hiatal hernia repair at [facility] in 2012. Remote hx of appendectomy for appendicitis and cholecystectomy. COMPARISON: CT chest 10/07/2023. FINDINGS: Evaluation is limited due to patient becoming claustrophobic and study terminated early. Liver: No hepatic steatosis. No iron deposition. Normal liver morphology. - Bile ducts: No intrahepatic or extrahepatic biliary ductal dilatation. - Focal liver lesions: No suspicious liver lesions. Scattered small hepatic cysts. - Vasculature: Normal appearance of vascular structures. Gallbladder: Surgically absent.. Pancreas: Pancreatic divisum anatomy is present. Pancreas is normal in appearance. No pancreatic duct dilatation. Spleen: Spleen is normal in appearance. Adrenals: Adrenal glands are normal in appearance. Kidneys: Asymmetric scarring of the upper pole of the right kidney is not significantly changed. Small bilateral renal cysts. No hydronephrosis. Other Findings: No pleural effusions. No suspicious osseous lesions. Procedure Note Gracy Ferrera MD - 06/21/2025 EXAMINATION: RADIOLOGY CONSULTATION ON OUTSIDE IMAGING STUDY STUDY INITIALLY PERFORMED: 03/13/2025 at [facility]. TYPE OF STUDY: Multiple MR images of the abdomen without intravenous contrast are provided at the time of this interpretation. CONTRAST ROUTE: No contrast was administered. The protocol was adequate to address the clinical question. The outside final report was not available at the time of this second opinion interpretation. TYPE OF CONSULTATION: Consult on outside imaging study with images submitted through Outside Image Sharing Service DATE OF CONSULTATION: 06/21/2025 10:22 AM HISTORY: abdominal pain ; history of IBS-mixed; alternating diarrhea and constipation with bloating, sensation of fullness after cholecystectomy, nausea, sensation of regurgitation and food getting stuck in the chest with choking. She is s/p hiatal hernia repair at [facility] in 2012. Remote hx of appendectomy for appendicitis and cholecystectomy. COMPARISON: CT chest 10/07/2023. FINDINGS: Evaluation is limited due to patient becoming claustrophobic and study terminated early. Liver: No hepatic steatosis. No iron deposition. Normal liver morphology. - Bile ducts: No intrahepatic or extrahepatic biliary ductal dilatation. - Focal liver lesions: No suspicious liver lesions. Scattered small hepatic cysts. - Vasculature: Normal appearance of vascular structures. Gallbladder: Surgically absent.. Pancreas: Pancreatic divisum anatomy is present. Pancreas is normal in appearance. No pancreatic duct dilatation. Spleen: Spleen is normal in appearance. Adrenals: Adrenal glands are normal in appearance. Kidneys: Asymmetric scarring of the upper pole of the right kidney is not significantly changed. Small bilateral renal cysts. No hydronephrosis. Other Findings: No pleural effusions. No suspicious osseous lesions. IMPRESSION: Study terminated early reportedly due to patient discomfort. Within these limitations, no significant abnormality within the abdomen. The findings, conclusions and recommendations within this report do not replace the initial findings, conclusions and recommendations made at the facility where the study was performed based upon the imaging and clinical condition at that time. Comparison with the prior report and clinical history is necessary. The provided images may or may not represent the [place] source data set and thus may contain changes that may lower the accuracy of this second-opinion interpretation. Dictated by: Shoshana Bradley M.D. The radiology attending physician has personally reviewed this study, and had reviewed and/or edited this written report and agrees with it. Electronically signed by: Gracy Ferrera M.D. Lauren CASTREJON IMG MRI PROCEDURES Final Result * XR KUB (06/16/2025 11:25 AM CDT) [...] it. Electronically signed by: Julianne Epps M.D. Lauren CASTREJON IM XR PROCEDURES Final Result * MR Body Outside Reference (06/06/2025 6:16 PM CDT) Impressions RAD_PACS_[facility] - 06/06/2025 6:16 PM CDT These images are for Reference purposes only and have not been reviewed by [facility] Radiology. There will be no report generated by a [facility] Radiologist. Narrative RAD_PACS_[facility] - 06/06/2025 6:16 PM CDT EXAMINATION: Images For Reference Purposes Only us Rose Negron MD IMG MRI PROCEDURES Final Resul t RAD_PACS_[facility] * Colonoscopy (02/21/2025 1:14 PM CDT) Anatomical Region Laterality Modality Other Narrative Procedure Note Marv Earl MD - 02/21/2025 1:14 PM CDT [facility] Patient Name: Sarahy Gill Procedure Date: 02/21/2025 1:14 PM Date of : 1970 Admit Type: Outpatient Age: 54 Gender: Female Attending MD: Marv Earl M.D. Room: [facility] ENDOSCOPY ROOM 9 Note Status: Finalized [...] scope was passed under direct vision.The CF [id number] endoscope was introduced through the anus and advanced to the terminal ileum. The colonoscopy was performed without difficulty. The patient tolerated the procedure well. The qualityof the bowel preparation was evaluated using the BBPS ([place] Bowel Preparation Scale) with scores of:Right Colon [...] pathology results. - Follow up with primary clinical nurse specialist. - Continue home medications. - Resume previous diet. - Follow up with referring physician as previously scheduled. - In the unusual situation that you developabdominal, bleeding or other significant problems in the days following this procedure please call [phone] ask for my nurse, Abena Lam. After hours and evenings please call [phone] and speak to theGI fellow bond broker. Please tell the fellow that Dr. Earl did your procedure and that you were instructed to have the fellow call me or thephysician covering for me to discuss the management of your condition. 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
--- OUTSIDE RECORDS SUMMARY | 2025-06-27 08:57 | XMS_ITS | Encounter Summary ---
Author Organization [facility] Address [address] [place] [address] Phone Care Team Providers Care Software Implementation Project Manager Name Role Phone Mere Landa NP Unavailable [phone] Tico Burton MD Unavailable [phone] Ivan Liang MD Unavailable Mandeep Pennington DO Primary Care Provider Encounter Details Date Type Department Care Team (Late st Contact Info) Description 06/22/2025 Results Follow-Up [facility] Medicine Gastroenterology [address] [place] [address] Medical Office [address] [place] [address] Lauren Fuentes PA [address] [place], [place] [id number] MR Body Outside Consult Social History Tobacco Use Types Packs/Day Years Used Date Smoking Tobacco: Every Day Vaping Passive Smoke Exposure: Never Smokeless Tobacco: Never Comments:off and on Alcohol Use Standard Drinks/Week Comments No 0 (1 standard drink = 0.6 oz pur e alcohol) on occasion [facility] Utilities Answer Date Recorded In the past 12 months has [employer], gas, oil, or water [employer] threatened to shut off services in your [...] any clubs o r organizations such as yazdanism groups, unions, fraternal or athletic groups, or [...] on file Legal Sex Female 10:06 AM DIETARY DIRECTOR Gender Identity Female 06/17/2024 7:02 AM CDT Sexual Orientation Not on file documented as of this encounter Plan of Treatment Upcoming Encounters Date Type Department Care Team (Late st Contact Info) Description 07/10/2025 7:30 AM DIETARY DIRECTOR Hospital Encounter [facility] Endoscopy [address] [address] Rose Negron MD [address] [place] [address] 07/10/2025 7:30 AM DIETARY DIRECTOR - 07/10/2025 8:15 AM DIETARY DIRECTOR Surgery [facility] Endoscopy [address] [address] [address] Rose Negron MD [address] [place] [address] COLONOSCOPY Scheduled Procedures Name Priority Associated Diagnoses Date/Ti me COLONOSCOPY Encounter for screening colonoscopy History of colitis Loose stools 07/10/2025 7:30 AM DIETARY DIRECTOR ESOPHAGOGASTRODUODENOSCOPY Open Access Gastroesophageal reflux disease, unspecified whether esophagitis present ESOPHAGOGASTRODUODENOSCOPY Open Access Dysphagia, unspecified type documented as of this encounter Visit Diagnoses Not on filedocumented in this encounter Care Teams Software Implementation Project Manager Relationship Specialty Start Date End Date Mandeep Pennington DO PCP - General Internal Medicine 02/14/25 Mere Landa NP Nurse Practitioner 02/07/20 Tico Burton MD Surgeon General Surgery 08/09/21 Ivan Liang MD Consulting Physician General Surgery 09/09/23 documented as of this encounter
--- OUTSIDE RECORDS SUMMARY | 2025-06-27 08:57 | XMS_ITS | Encounter Summary ---
Author Organization [facility] Healthcare Address [address] [place] [address] Care Team Providers Care Well Logging Captain Mud Analysis Name Role Phone Mere Landa NP Unavailable [phone] Parmjit Dai MD Primary Care Provider [phone] Tico Burton MD Unavailable [phone] Ivan Liang MD Unavailable Mandeep Pennington DO Primary Care Provider Reason for Visit * Reason Onset Date Comments Scheduling Appointments 06/19/2021 confirmi ng mammogram appt Encounter Details Date Type Department Care Team (Late Contact Info) Description 06/19/2021 Telephone [facility] [address] [place] [id number] Cheryl Trejo RT Scheduling Appointments (confirming mammogram [...] on file Legal Sex Female 10:06 AM AUTOMOTIVE WARRANTY 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 Gender Identity Female 06/17/2024 7:02 AM CDT Sexual Orientation Not on file documented as of this encounter Plan of Treatment Upcoming Encounters Date Type Department Care Team (Late Contact Info) Description 07/10/2025 7:30 AM AUTOMOTIVE WARRANTY 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 Hospital Encounter [facility] [id number] [address] Rose Negron MD [address] [place] [address] 07/10/2025 7:30 AM AUTOMOTIVE WARRANTY 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 - 07/10/2025 8:15 AM AUTOMOTIVE WARRANTY 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 Surgery [facility]oscopy [address] [address] [address] Rose Negron MD [address] [place] [address] COLONOSCOPY Scheduled Procedures Name Priority Associated Diagnoses Date/Ti me COLONOSCOPY Encounter for screening colonoscopy History of colitis Loose stools 07/10/2025 7:30 AM AUTOMOTIVE WARRANTY 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 ESOPHAGOGASTRODUODENOSCOPY Open Access Gastroesophageal reflux disease, unspecified whether esophagitis present ESOPHAGOGASTRODUODENOSCOPY Open Access Dysphagia, unspecified type documented as of this encounter Visit Diagnoses Not on filedocumented in this encounter Additional Health Concerns Infection Onset Date Last Indicated Resolved Time COVID: Suspected 06/09/2022 06/09/2022 06/09/2022 11:28 PM CDT COVID: Suspected 07/06/2022 07/06/2022 07/06/2022 3:52 AM AUTOMOTIVE WARRANTY 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 COVID: Suspected 08/18/2022 08/18/2022 08/18/2022 12:59 AM AUTOMOTIVE WARRANTY 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 COVID: Suspected 09/19/2023 09/19/2023 09/19/2023 11:01 AM AUTOMOTIVE WARRANTY 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 C. difficile suspected 07/21/2024 07/21/202407/22 3:05 AM AUTOMOTIVE WARRANTY 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 C. difficile suspected 06/16/2025 06/16/202506/17 7:26 PM CDT documented as of this encounter Care Teams Well Logging Captain Mud Analysis Relationship Specialty Start Date End Date Parmjit Dai MD PCP - General 12/31/20 02/13/25 Mandeep Pennington DO PCP - General Internal Medicine 02/14/25 Mere Landa NP Nurse Practitioner 02/07/20 Tico Burton MD Surgeon General Surgery 08/09/21 Ivan Liang MD Consulting Physician General Surgery 09/09/23 documented as of this encounter
--- OUTSIDE RECORDS SUMMARY | 2025-06-27 08:58 | XMS_ITS | Clinical Summary ---
Author Organization [facility] [employer] Address [address] [facility] [address] [place] [address] Care Team Providers Care Inhalation Therapist Name Role Phone Mandeep Pennington DO Primary Care Provider [phone] Source Comments [facility] [employer],non-owned Affiliates and Associated Physician Practices is amultiple site organization consisting of ambulatory clinics and hospital sitesin [place], [place]. This disclosure is being madepursuant to the Care Everywhere program and may not contain all information available regarding this patient. Last updated 18.[facility] [employer] Allergies Active Allergy Reactions Criticality Noted Date [...] - 06/07/2024 7:12 AM CDT Performed at: [address] [id number] Theater Projectionist: Edmundo Dias PhD, Phone: [phone] Rolando Castro DO LAB - CHEMISTRY ORDERABLES Final Result Performing Organization Address City/State/[facility] Co de Phone Number [facility] INSURANCE BILL [address] [place] [address] from Last 3 Months or Most Recently Relevant to Health Maintenance Insurance [facility] [facility] MANAGED MEDICARE ADV Care Teams Inhalation Therapist Relationship Specialty Start Date End Date Mandeep Pennington DO [address] [place] [address] PCP - General Internal Medicine 06/30/24
--- OUTSIDE RECORDS SUMMARY | 2025-06-27 08:58 | XMS_ITS | Clinical Summary ---
Author Organization [facility] Address [address] [place] [address] Phone Care Team Providers Care Medical Claims Examiner Name Role Phone Parmjit Dai MD Primary Care Provider [phone] Jazmine Kulkarni MD Unavailable [phone] Mir Spencer MD Unavailable Allergies Active Allergy [...] Comments Blood Pressure 96/66 10/29/2023 8:05 AM ORACLE DEVELOPER Pulse 52 10/29/2023 8:05 AM ORACLE DEVELOPER Temperature 36.9 C (98.4 F) 10/16/2023 8:53 AM ORACLE DEVELOPER Respiratory Rate 20 10/29/2023 8:05 AM ORACLE DEVELOPER Oxygen Saturation 100% 10/16/2023 8:53 AM ORACLE DEVELOPER Inhaled Oxygen Concentration - - Weight 56.7 kg (125 lb) 10/29/2023 8:05 AM ORACLE DEVELOPER Height 162.6 cm (5' 4) 10/29/2023 8:05 AM ORACLE DEVELOPER Body Mass Index 21.46 10/29/2023 8:05 AM ORACLE DEVELOPER Plan of Treatment Health Maintenance Due Date [...] this topic Insurance MEDICAID [place] MEDICARE C [facility] Care Teams Medical Claims Examiner Relationship Specialty Start Date End Date Parmjit Dai MD [address] [place] [address] [address] [place] [address] PCP - General Family Medicine 05/21/22 Jazmine Kulkarni MD [address] [place] [address] [address] [place] [address] Family Medicine 05/21/22 Mir Spencer MD [address] [place] [address] Consulting Physician Urology 10/29/23
--- OUTSIDE RECORDS SUMMARY | 2025-06-27 08:58 | XMS_ITS | Patient Health Record ---
Author Organization [facility] Address [address] [place] [address] Care Team Providers Care Clinical Administrative Coordinator Name Role Phone Ru Gonzales Unavailable [phone] Reason For Referral No Information Medications Medication [...] MOTEGRITY 2 MG TABLET *Reorder f rom [facility] for eRx and Interaction Alerts* 12/02/2023 Active Eliquis 5 MG Tablet Oral 12/02/2023 Active LUBIPROSTONE 24 MCG CAPSULE *Reorder from [facility] for eRx and Interaction Alerts* [...] Start Date Coverage End Date [employer] - [facility] Benefit Plan Management Ppo [address] JULIANA PANDA [id number] MARIA E NAZARIO Spouse - patient is the spouse of the insured [employer] Medicare Replacement /Advantage - Ppo [address] [address] [place] [address] [id number] LUKASZ NAZARIO Self - patient is the insured Medical (General) History Surgical History Surgery Date(Month/Year) Endometrial ablation (32868) 08/31/2011 Removal of gallbladder (13862) 3 Appendectomy (35505) 09/09/2023
[2025-06-27 13:31] LABS: Add Urine Microscopic? YES; Appearance Urine Turbid (Clear); Glucose Urine UA Negative (Negative); Leukocyte Esterase Ur 3+ LEU/UL (Negative); Need Manual Microscopic Reviewed; Nitrate Urine Negative (Negative); Specific Grav Ur 1.003 (1.001-1.035)
== END 2025-06-27 08:40 | disposition home or self-care (01) ==
LOC: ANHGOSHLAB 08:39
PROVIDERS: PCP Internal Medicine
DX: R39.9 Unspecified symptoms and signs involving the genitourinary system (principal); N39.0 Urinary tract infection, site not specified
CPT/HCPCS: 81001; 87086

== ENCOUNTER 2025-06-28 00:31 | Emergency (ER) | payer OTHER, MEDICARE, SELFPAY ==
--- OUTSIDE RECORDS SUMMARY | 2024-01-27 05:00 | XMS_ITS ---
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 Name Role Phone JanetRu Unavailable [phone] Erwin De Luna Unavailable [phone] Encounters Encounter Location Date Provider Diagnosis [facility] [employer] [place] [id number] [facility] [address] [facility] [address] [place] [address] 01/27/2024 Erwin De Luna Plan Of Treatment No Information Progress Notes * JEM MAYSB:[birth year] (55 yo F)Acc No.[id number]:01/27/2024 Patient: KSENIA FELIXA Provider: Theresa De Luna LCPC :1970 A ge:53 Y S ex:Female Date:01/27/2024 Address:[address] [place], [place] [id number] Billing Information: * Procedure Codes: * Electronic signature of Preeti De Luna LCPC on 06/28/2025 at 01:05 AM CDT Sign off status: Pending * Provider: Theresa De Luna LCPC Date: 0 01/27/2024 Generated for Candacei ng/Fadonaldog/eTransmitting on: 1 01:05 AM CDT
[2025-06-28 00:43] VITALS: BP 116/73; PULSE 69; RESP 12; TEMP 36.3; O2SAT 100
[2025-06-28 00:45] VITALS: BP 104/75; PULSE 67; RESP 18; O2SAT 100
--- NOTE | 2025-06-28 00:48 | ED.NAVMDI ---
HPI - Nausea/Vomiting/Diarrhea General Chief complaint: Nausea/Vomiting/Diarrhea Stated complaint: N/V, abd pain, diarrhea Time Seen by Provider: 06/28/25 00:38 Source: patient Mode of arrival: ambulatory Limitations: no limitations History of Present Illness HPI Narrative: This is a 55-year-old female with history of IBS, AFib on Eliquis, status post Gary fundoplication, cyclic vomiting syndrome who presents to the ED for nausea vomiting, abdominal pain, diarrhea. Patient states that for the last 4 days, she has been having dysuria with lower abdominal pain. She saw her PCP for this 2 days ago when a urinalysis was obtained but was not given antibiotics as they are waiting on a culture. She states that her pain is now radiating to her left flank and she has begun to have nausea and vomiting. She also has diarrhea that is different from her normal IBS. Denies fevers, chills, chest pain, shortness of breath. Related Data Home Medications ?Medication ?Instructions ?Recorded ?Confirmed ?Last Taken ?Type aluminum-mag hydroxide-simethicone 10 ml PO QID PRN Acid Reflux 05/28/20 06/27/25 07/23/24 History 400 mg-400 mg-40 mg/5 mL oral susp (Mylanta Maximum Strength) simethicone 125 mg chewable tablet 125 mg PO QID PRN Abdominal 05/28/20 06/27/25 04/24/21 21:00 History (Gas-X Extra Strength) Discomfort apixaban 5 mg tablet (Eliquis) 5 mg PO BID 10/23/23 06/27/25 07/30/24 History metoprolol succinate 25 mg 25 mg PO DAILY 10/23/23 06/27/25 07/30/24 History tablet,extended release 24 hr flecainide 100 mg tablet 100 mg PO Q12H 10/29/23 06/27/25 07/30/24 History buspirone 10 mg tablet 10 mg PO BID 07/07/24 06/27/25 07/30/24 History calcium carbonate [Calcium 600] PO 04/05/25 06/27/25 Unknown History cholecalciferol (vitamin D3) PO 04/05/25 06/27/25 Unknown History cyclobenzaprine 5 mg tablet mg PO 06/26/25 06/27/25 Unknown History Allergies Allergy/AdvReac Type Severity Reaction Status Date / Time prochlorperazine AdvReac Severe Confusion Verified 06/28/25 00:52 metoclopramide (From Reglan) AdvReac Intermediate anxiety Verified 06/28/25 00:52 azithromycin AdvReac Unknown STOMACH Verified 06/28/25 00:52 UPSET promethazine (From Phenergan) AdvReac Jittery Verified 06/28/25 00:52 Review of Systems Review of Systems: Gen.: Denies fevers or chills Eyes: Denies eye pain or visual change ENT: Denies congestion Respiratory: Denies shortness of breath or cough CV: Denies chest pain or palpitations GI: As per HPI as per HPI Musculoskeletal: Denies back pain or muscle pain Neuro: Denies numbness, tingling, weakness or focal weakness Skin: Denies rash Except as documented, all other systems reviewed and negative PMF Past Medical History Medical History Foot pain, right Achilles tendon contracture, right Chondromalacia of right knee Anemia History of TIA (transient ischemic attack) Irritable bowel syndrome with constipation History of hyperlipidemia History of atrial fibrillation History of gastroesophageal reflux (GERD) Adenomatous colon polyp Atrial fibrillation Arthritis GERD (gastroesophageal reflux disease) Celiac disease Diverticulosis Anxiety and depression Neuropathy Migraine headache Surgical History Surgical History History of endometrial ablation Hx of hernia repair Hx of laparoscopy Hx of dilation and curettage History of colonoscopy with polypectomy (03/2021) And repeat colonoscopy 2022 Status post lateral meniscectomy of right knee (07/2024) Hx of emergency section History of appendectomy History of delivery History of tubal ligation History of Gary fundoplication History of cholecystectomy Family History Family History Mother Family history of elevated blood lipids Family history of arthritis Sibling Family history of arthritis Grandparent Cerebrovascular accident Family history of cardiovascular disease Hypertension Diabetes mellitus Other Heart disease Acute myocardial infarction Father Alcoholism Mother Alcoholism Depression Anxiety Grandparent Throat cancer Cerebrovascular accident Heart problem Social History Social History Social History: She lives at home with her of 6 years. This is her 3rd marriage. She had 6 children. One son and 5 daughters. She smoked half pack of cigarettes per day since she was 14 years old but switched to vaping nicotine several years ago. She rarely drinks alcohol and only minute amounts. She uses marijuana daily. Code status: Full code (she would not want to be on the ventilator long-term or if she had no quality of life ) Surrogate decision maker: Smoking packs per day: 0.5 Smoking cigarettes per day: 10.0 Years smoked: 15 Smoking pack-years: 7.50 Smoking status: Current every day smoker Tobacco type: e-cigarettes/vaping Second hand tobacco smoke exposure: No Additional smoking assessment comments: Currently vapes. Alcohol intake: never Substance use: current Substance use type: marijuana Other substance usage details: Daily Last use: 07/30/24 Living arrangements: with family Occupation/Education: other Additional occupation/education comments: disabled Gender identity (if verbalized by the patient): Female Sexual Orientation (if Verbalized by the Patient): Straight or Heterosexual Spiritual care concerns: No Exam Narrative: APPEARANCE: No acute distress, nontoxic, resting in bed EYES: EOMI HEENT: Normocephalic, atraumatic, mucous membranes mildly dry RESPIRATORY: No respiratory distress Clear to auscultation bilaterally with no rhonchi wheezing or rales. CARDIOVASCULAR: Regular rate and rhythm without murmurs rubs or gallops. ABDOMINAL: Soft, mild suprapubic and left lower quadrant tenderness to palpation, CVA tenderness on the left, nondistended, no rebound or guarding MUSCULOSKELETAl: Moves all extremities. No clubbing, cyanosis or edema. NEURO: Awake and alert. Following commands, speech normal, no focal deficits SKIN:: Warm, dry. No rashes lesions or abrasions PSYCHIATRIC: Normal affect/mood, Course Vital Signs Vital signs: Vital Signs Temperature 97.4 F L 06/28/25 00:43 Pulse Rate 69 06/28/25 00:43 Respiratory Rate 12 06/28/25 00:43 Blood Pressure 116/73 06/28/25 00:43 Pulse Oximetry 100 06/28/25 00:43 Oxygen Delivery Room Air 06/28/25 00:43 Temperature 97.4 F L 06/28/25 00:43 Pulse Rate 64 06/28/25 01:30 Respiratory Rate 20 06/28/25 01:30 Blood Pressure 103/59 L 06/28/25 01:30 Pulse Oximetry 100 06/28/25 01:30 Oxygen Delivery Room Air 06/28/25 00:43 MDM - Nausea/Vomiting/Diarrhea MDM Narrative Medical decision making narrative: 55-year-old female Presenting for suprapubic abdominal pain and left flank pain. On initial evaluation patient was in no acute distress, afebrile, hemodynamic stable. Differentials include but are not limited to: Diverticulitis, constipation, ureterolithiasis, UTI, enterocolitis, colitis, obstruction, cancer Notable exam findings: Suprapubic abdominal tenderness with left CVA tenderness. Mucous membranes mildly dry. Notable lab findings: CBC and CMP were without significant abnormalities. UA consistent with a UTI. UDS positive for cannabinoids. Advanced imaging is not indicated as patient likely has a UTI. She has no systemic symptoms concerning for pyelonephritis at this time. She was given 2 L NS bolus, Zofran, Toradol with [id number] improvement of her symptoms. She was given a dose of Rocephin here in the ED. she will be given a prescription for Keflex. She was advised follow-up with her PCP in the next week for re-evaluation. Patient was agreeable to this plan. Given strict return precautions. Medical Records Attestation: I reviewed the patient's medical records. Medical records narrative: UA obtained yesterday appears consistent with a UTI. Lab Data Attestation: I reviewed the patient's lab results. 06/28/25 00:53 06/28/25 00:53 Labs: Lab Results 06/28/25 Range/Units 00:53 WBC 8.2 (4.5-10.0) K/mm3 RBC 4.15 L (4.2-5.4) M/mm3 Hgb 12.4 (12.0-15.0) g/dL Hct 37.7 (37.0-47.0) % MCV 90.8 (80-100) fl MCH 29.9 (26-34) pg MCHC 32.9 (32-36) g/dl RDW 12.5 (11.5-14.5) % Plt Count 305 (150-375) k/mm3 MPV 10.3 (7.4-10.4) fl Immature Gran % (Auto) 0.2 (0-0.5) % Neut % (Auto) 70.5 (45.5-73.1) % Lymph % (Auto) 19.9 (18.3-44.2) % [place] % (Auto) 9.0 H (2.6-8.5) % Eos % (Auto) 0.2 (0-4.4) % Baso % (Auto) 0.2 (0.2-1.2) % Lymph # (Auto) 1.63 (0.9-3.2) K/mm3 [place] # (Auto) 0.7 H (0.1-0.6) K/mm3 Eos # (Auto) 0.0 (0-0.3) K/mm3 Baso # (Auto) 0.0 (0.0-0.1) K/mm3 Abs Immat Gran (auto) 0.02 (0.00-0.031) K/mm3 Absolute Neuts (auto) 5.8 (1.3-6.7) K/mm3 Absolute Nucleated RBC 0.000 (0.0-0.012) K/mm3 Nucleated RBC % 0.0 (0.0-0.2) % Sodium 135 L (137-145) mmol/L Potassium 3.8 (3.4-5.0) mmol/L Chloride 102 (98-107) mmol/L Carbon Dioxide 22 (22-30) mmol/L Anion Gap 11 (4-12) mmol/L BUN 5 L (7-17) mg/dL Creatinine 0.74 (0.7-1.0) mg/dL Estim Creat Clear Calc 64 ml/min Estimated GFR > 60 (59 - ) Glucose 119 H (65-110) mg/dL Calcium 9.6 (8.4-10.2) mg/dL Total Bilirubin 0.9 (0.2-1.3) mg/dL AST 44 H (14-36) U/L ALT 22 (6-35) U/L Alkaline Phosphatase 76 (38-126) U/L Total Protein 8.6 H (6.3-8.2) g/dL Albumin 4.9 (3.5-5.1) g/dL Lipase 195 (23-300) U/L Urine Color Yellow (Yellow) Urine Appearance Cloudy H (Clear) Urine pH 8.5 (5.0-9.0) Ur Specific [place] 1.004 (1.001-1.035) Urine Protein Negative (Negative) mg/dL Urine Glucose (UA) Negative (Negative) mg/dL Urine Ketones Negative (Negative) mg/dL Ur Blood (Man) Trace (Negative) Urine Nitrate Negative (Negative) Urine Bilirubin Negative (Negative) Urine Urobilinogen 0.2 (<2.0) mg/dL Leukocyte Esterase Rfl 3+ H (Negative) NEHA/UL Urine RBC 0-2 (0-2) /hpf Urine WBC >100 H (0-3) /hpf Ur Squamous Epith Cells None seen (Few) /hpf Urine Bacteria 1+ H /hpf Urine Casts 0-2 Urine Opiates Screen Negative (Negative) Urine Methadone Screen Negative (Negative) Ur Barbiturates Screen Negative (Negative) Ur Phencyclidine Scrn Negative (Negative) Ur Amphetamine Screen Negative (Negative) U Benzodiazepines Scrn Negative (Negative) Urine Cocaine Screen Negative (Negative) U Cannabinoids Screen Positive A (Negative) Discharge Plan Discharge Clinical Impression: UTI (urinary tract infection), Gastroenteritis Patient Disposition: Home Condition: Stable Instructions: Antibiotic Form, Urinary Tract Infection in Women (ED), Gastroenteritis (ED) Additional Instructions: Lab work showed evidence of a UTI. You were given prescriptions for Zofran and Keflex, take as prescribed. Follow up with your PCP in the next week for reevaluation. Return to the ED for new or worsening symptoms. For pain, discomfort or temperature greater than or equal to 100.8 ?F please alternate the following 2 medications as needed. First medication- acetaminophen/Tylenol- 1000mg every 6-8 hours as needed for above indications. Second medication- ibuprofen/Motrin-600mg every 6-8 hours as needed for above indication. Patient Language: Czech Prescriptions: New ondansetron 4 mg tablet,disintegrating 4 mg PO Q8H PRN (Reason: nausea and vomiting) Qty: 14 0RF cephalexin 500 mg capsule 500 mg PO Q12H 7 Days Qty: 14 0RF No Action metoprolol succinate 25 mg tablet extended release 24 hr 25 mg PO DAILY Eliquis 5 mg tablet 5 mg PO BID flecainide 100 mg tablet 100 mg PO Q12H calcium carbonate [Calcium 600] PO cholecalciferol (vitamin D3) PO gabapentin 100 mg capsule 200 mg PO QHS Qty: 60 2RF Rx Instructions: take two hours before desired sleep time cyclobenzaprine 5 mg tablet PO buspirone 10 mg tablet 10 mg PO BID simethicone [Gas-X Extra Strength] 125 mg Tablet,Chewable 125 mg PO QID PRN (Reason: Abdominal Discomfort) Patient Comments: Patient states that she takes one between meals. alum-mag hydroxide-simeth [Mylanta Maximum Strength] 400-400-40 mg/5 mL Suspension 10 ml PO QID PRN (Reason: Acid Reflux) Patient Comments: Patient states she takes in between meals and before bed. dicyclomine 20 mg tablet 20 mg PO TID PRN (Reason: Abdominal Discomfort) Qty: 15 0RF ondansetron 4 mg tablet,disintegrating 4 mg PO Q8H PRN (Reason: nausea and vomiting) Qty: 20 0RF Follow-up/Referrals: Mandeep Pennington DO [Primary Care Provider, Internal Medicine]
[2025-06-28] MEDS: SODIUM CHLORIDE 0.9% IV 1,000 ML 999 ML IV CONT ×2 (01:02→01:36)
[2025-06-28] MEDS: ONDANSETRON INJ 4 MG/2 ML VIAL IV PUSH ×2 (01:02→02:25)
[2025-06-28] MEDS: KETOROLAC 30 MG/ML VIAL (*BKC) IV PUSH (01:02)
[2025-06-28 01:03] LABS: Hematocrit 37.7 % (37.0-47.0); Hemoglobin 12.4 g/dL (12.0-15.0); Immature Granulocyte Percent A 0.2 % (0-0.5); Lymphocytes Absolute Auto 1.63 K/mm3 (0.9-3.2); Mean Corpuscular HGB Conc 32.9 g/dl (32-36); Mean Corpuscular Hemoglobin 29.9 pg (26-34); Mean Corpuscular Volume 90.8 fl (80-100); Nucleated Red Blood Cells Absolute Auto 0.000 K/mm3 (0.0-0.012); Nucleated Red Blood Cells Perc 0.0 % (0.0-0.2); Platelet Count Result 305 k/mm3 (150-375); Red Blood Count 4.15 M/mm3 (4.2-5.4); White Blood Count 8.2 K/mm3 (4.5-10.0)
--- OUTSIDE RECORDS SUMMARY | 2025-06-28 01:05 | XMS_ITS | Clinical Summary ---
Author Organization [facility] Address [address] [place] [address] Care Team Providers Care Dining Car Conductor Name Role Phone Mandeep Pennington DO Primary Care Provider [phone] Source Comments [facility],non-owned Affiliates and Associated Physician Practices is amultiple site organization consisting of ambulatory clinics and hospital sitesin [place], [place], [place] and [place]. This disclosure is being madepursuant to the Care Everywhere program and may not contain all information available regarding this patient. Last updated 18.[facility] Allergies Active Allergy Reactions Criticality Noted Date [...] - 06/07/2024 7:12 AM CDT Performed at: [address] [id number] Defect Repairer Glassware: Edmundo Dias PhD, Phone: [phone] Rolando Castro DO LAB - CHEMISTRY ORDERABLES Final Result Performing Organization Address City/State/[facility] Co de Phone Number [facility] INSURANCE BILL [address] [place] [address] from Last 3 Months or Most Recently Relevant to Health Maintenance Insurance [employer] [facility] MANAGED MEDICARE ADV Care Teams Dining Car Conductor Relationship Specialty Start Date End Date Mandeep Pennington DO [address] [place] [address] PCP - General Internal Medicine 06/30/24
--- OUTSIDE RECORDS SUMMARY | 2025-06-28 01:05 | XMS_ITS | Encounter Summary ---
Author Organization [facility] Address [address] [place] [address] Phone Care Team Providers Care Rivet Passer Name Role Phone Mere Landa NP Unavailable [phone] Tico Burton MD Unavailable [phone] Ivan Liang MD Unavailable Mandeep Pennington DO Primary Care Provider Reason for Visit * Reason Onset Date Comments GI Preprocedure 06/23/2025 Encounter Details Date Type Department Care Team (Late st Contact Info) Description 06/23/2025 Documentation [facility] Medicine Gastroenterology [address] [place] [address] Medical Office [address] [place] [address] Evelyn Kerns LPN GI Preprocedure [...] Recorded In the past 12 months has [employer] electric, gas, oil, or water company threatened [...] often do you attend chur ch or amish services? Never 09/09/2023 Do you belong to [...] on file Legal Sex Female 10:06 AM INTERVENTIONAL PHYSIATRIST Gender Identity Female 06/17/2024 7:02 AM CDT [...] Dr. Tarik Michael Hold order Method sent: [employer] Fax Date hold received: Hold instructions: CONTINUE ASPIRIN INFORMATION REQUESTED []Imaging: []Medical Progress Note/H&P []Medication list []Other: PATIENT OPTIMIZATION []Physician reviewing escalation: []CPAP: Date scheduled: Outcome : [] Location limitations: Scheduling Scheduling location limitations: Talent Development Manager needed [] NA Language: POA [] NA Name: Required extended education:no SPECIAL PROCEDURE INSTRUCTIONS Scheduling Notes Procedure information Date of procedure: 07/10/25 Time of procedure: 729 Arrival time: 629 Location: [facility] Proceduralist: Migdalia Instructions Method of instructions: MyChart and Mailed Copy []Confirmation of ride/scalp specialist []Post anesthesia restrictions given []NPO Instructions: []Diet [...] st Contact Info) Description 07/10/2025 7:30 AM INTERVENTIONAL PHYSIATRIST Hospital Encounter [facility] Endoscopy [address] [address] Rose Negron MD [address] [place] [address] 07/10/2025 7:30 AM INTERVENTIONAL PHYSIATRIST - 07/10/2025 8:15 AM INTERVENTIONAL PHYSIATRIST Surgery [facility] Endoscopy [address] [address] [address] Rose Negron MD [address] [place] [address] COLONOSCOPY Scheduled Procedures Name Priority Associated Diagnoses Date/Ti me COLONOSCOPY Encounter for screening colonoscopy History of colitis Loose stools 07/10/2025 7:30 AM INTERVENTIONAL PHYSIATRIST ESOPHAGOGASTRODUODENOSCOPY Open Access Gastroesophageal reflux disease, unspecified [...] 06/23/2025 documented in this encounter Care Teams Rivet Passer Relationship Specialty Start Date End Date Mandeep Pennington DO PCP - General Internal Medicine 02/14/25 Mere Landa NP Nurse Practitioner 02/07/20 Tico Burton MD Surgeon General Surgery 08/09/21 Ivan Liang MD Consulting Physician General Surgery 09/09/23 documented as of this encounter
--- OUTSIDE RECORDS SUMMARY | 2025-06-28 01:05 | XMS_ITS | Encounter Summary ---
Author Organization [facility] Address [address] [place] [address] Phone Care Team Providers Care Chiropractor Assistant Name Role Phone Mere Lanad NP Unavailable [phone] Tico Burton MD Unavailable [phone] Ivan Liang MD Unavailable Mandeep Pennington DO Primary Care Provider Encounter Details Date Type Department Care Team (Late st Contact Info) Description 06/22/2025 Results Follow-Up [facility] Medicine Gastroenterology [address] [place] [address] Medical Office Building [address] [place] [address] Lauren Fuentes PA [address] [place] [address] MR Body Outside Consult Social History Tobacco Use Types Packs/Day Years Used Date Smoking Tobacco: Every Day Vaping Passive Smoke Exposure: Never Smokeless Tobacco: Never Comments:off and on Alcohol Use Standard Drinks/Week Comments No 0 (1 standard drink = 0.6 oz pur e alcohol) on occasion [facility] Utilities Answer Date Recorded In the past 12 months has [place], gas, oil, or water [employer] threatened to shut off services in your [...] often do you attend chur ch or pentecostalism services? Never 09/09/2023 Do you belong to [...] on file Legal Sex Female 10:06 AM COSTUME CUTTER Gender Identity Female 06/17/2024 7:02 AM CDT Sexual Orientation Not on file documented as of this encounter Plan of Treatment Upcoming Encounters Date Type Department Care Team (Late st Contact Info) Description 07/10/2025 7:30 AM COSTUME CUTTER Hospital Encounter [facility] Endoscopy [address] [address] [address] Rose Negron MD [address] [place] [address] 07/10/2025 7:30 AM COSTUME CUTTER - 07/10/2025 8:15 AM COSTUME CUTTER Surgery [facility] Endoscopy [address] [address] [address] Rose Negron MD [address] [place] [address] COLONOSCOPY Scheduled Procedures Name Priority Associated Diagnoses Date/Ti me COLONOSCOPY Encounter for screening colonoscopy History of colitis Loose stools 07/10/2025 7:30 AM COSTUME CUTTER ESOPHAGOGASTRODUODENOSCOPY Open Access Gastroesophageal reflux disease, unspecified whether esophagitis present ESOPHAGOGASTRODUODENOSCOPY Open Access Dysphagia, unspecified type documented as of this encounter Visit Diagnoses Not on filedocumented in this encounter Care Teams Chiropractor Assistant Relationship Specialty Start Date End Date Mandeep Pennington DO PCP - General Internal Medicine 02/14/25 Mere Landa NP Nurse Practitioner 02/07/20 Tico Burton MD Surgeon General Surgery 08/09/21 Ivan Liang MD Consulting Physician General Surgery 09/09/23 documented as of this encounter
--- OUTSIDE RECORDS SUMMARY | 2025-06-28 01:05 | XMS_ITS | Clinical Summary ---
Author Organization [facility]Care Care Team Providers Care Exhibitor Sales Name Role Phone Mere Landa NP Unavailable [phone] Tico Burton MD Unavailable [phone] Ivan Liang MD Unavailable Mandeep Pennington DO [...] 09/03/2023 Assessment & Plan (09/17/2023 9:54 AM TREASURER): Diet as tolerates. Continue bowel regimen if needed to avoid straining. No submerging incision for 1 more week. Light duty for another 2 weeks. Patient will call us back with any further questions or concerns. Assessment & Plan (09/03/2023 8:54 AM TREASURER): I will discuss her case with GI. [...] (09/10/2022): Added automatically from request for surgery [id number] Cyclical vomiting 09/05/2022 Gastritis 09/05/2022 Gastroesophageal reflux [...] 08/13/2021 Assessment & Plan (08/13/2021 9:33 AM TREASURER): Pt complains of pain with urination. Pt also complains of suprapubic pain. Plan - Urine analysis TIA (transient ischemic attack) 08/11/2021 Assessment & Plan (08/13/2021 9:29 AM TREASURER): Sarahy Elise Gill 51-year-old female presenting with [...] mg Assessment & Plan (08/12/2021 6:00 PM TREASURER): Sarahy Gill 51-year-old female presenting with left [...] recommendations Assessment & Plan (08/09/2021 6:14 PM TREASURER): Patient has a history of IBS with [...] agitation/anxiety Assessment & Plan (08/13/2021 9:30 AM TREASURER): Currently mood at baseline. Continue home med Celexa Assessment & Plan (08/12/2021 5:53 PM TREASURER): Currently mood at baseline. Continue home med Celexa Assessment & Plan (08/09/2021 6:30 PM TREASURER): Per patient has a history of bipolar depressive type Stable at this time Not currently on any medication Patient denies any suicidal homicidal ideation Intussusception intestine 08/09/2021 Assessment & Plan (08/09/2021 6:36 PM TREASURER): 08/08/2021 CT abdomen/pelvis with contrast: Possible cystitis, [...] q.day Assessment & Plan (08/13/2021 9:29 AM TREASURER): Blood pressure has been under control Metoprolol restarted Assessment & Plan (08/12/2021 5:49 PM TREASURER): Blood pressure has been under control Metoprolol has been on hold-to allow for permissive hypertension for the next 24 hours, will restart tomorrow Assessment & Plan (08/09/2021 6:31 PM TREASURER): Have reviewed 24 hour blood pressures and [...] consult: Assessment & Plan (08/09/2021 6:12 PM TREASURER): CT abdomen pelvis with contrast at [place] yesterday showed intussusception CT abdomen pelvis with contrast at [facility]: Showed resolution of intussusception Patient has generalized [...] monitor Assessment & Plan (08/13/2021 9:29 AM TREASURER): Currently in sinus rhythm. Eliquis on hold will resume on August 15. Continue with flecainide Metoprolol restarted Assessment & Plan (08/12/2021 5:54 PM TREASURER): Currently in sinus rhythm. Eliquis on hold will resume on August 15. Continue with flecainide Metoprolol on hold will resume tomorrow Assessment & Plan (08/09/2021 6:18 PM TREASURER): No acute events since admission Patient on Eliquis Metoprolol for rate control with hold parameters Will continue to monitor Essential tremor 10/12/2018 Assessment & Plan (08/13/2021 9:30 AM TREASURER): B/l hand with tremor - no changes in strength Assessment & Plan (08/09/2021 6:30 PM TREASURER): Patient reports after waking up had increase [...] consult Assessment & Plan (08/13/2021 9:30 AM TREASURER): Currently in no acute exacerbation. -continue Bentyl Assessment & Plan (08/12/2021 5:47 PM TREASURER): Currently in no acute exacerbation. -continue Bentyl Assessment & Plan (08/09/2021 6:15 PM TREASURER): Patient on Bentyl Monitoring electrolytes Assessment & [...] ibs-d. Will get all the records from [facility] and then regroup to discuss possible treatment options. Orthostatic dizziness 09/16/2016 Palpitations 07/29/2016 Migraine headache 07/29/2016 Assessment & Plan (12/18/2021 4:59 PM CDT): Started home Topamax Assessment & Plan (08/09/2021 6:17 PM TREASURER): Patient not complaining of headache or migraines at this time Sumatriptan on hold Hypokalemia Encounters Date Type Department Care Team Description 06/23/2025 Documentation [facility] Medicine Gastroenterology [address] [facility] Medical Office Building [address] [place] [address] Evelyn Kerns LPN GI Preprocedure 06/22/2025 Results Follow-Up [facility] Medicine Gastroenterology [address] [facility] Medical Office [address] [place] [address] Lauren Fuentes PA MR Body Outside Consult 06/21/2025 Orders Only [facility] Medicine Gastroenterology [address] [facility] Medical Office [address] [place] [address] Lauren Fuentes PA 06/20/2025 7:12 PM CDT - 06/20/2025 11:59 PM CDT Hospital Encounter [facility] ([facility]) [address] [place] [address] Diagnosis unknown Discharge Disposition: Discharge to home or self care 06/16/2025 11:20 AM CDT - 06/16/2025 11:59 PM CDT Hospital Encounter [facility] Radiology at [facility] [address] [place] [address] Loose stools Discharge Disposition: Discharge to home or self care 06/16/2025 10:40 AM CDT Office Visit [facility] Medicine Gastroenterology [address] [facility] 2[address] [place] [address] Lauren Fuentes PA Loose stools (Primary Dx); Colitis; Gastroesophageal reflux disease without esophagitis; Regurgitation of food; Dyssynergic defecation; Bloating; Pancreatic divisum; Celiac artery stenosis 06/06/2025 6:16 PM CDT - 06/06/2025 11:59 PM CDT Hospital Encounter [facility] ([facility]) [address] [place] [address] Discharge Disposition: Discharge to home or self care 04/24/2025 Telephone [facility] Medicine Gastroenterology [address] [place] [address] Advanced Medicine 12th [place] [address] [place] [address] Katharine Carty from Last 3 Months Immunizations [...] 0.6 oz pur e alcohol) on occasion [employer] Utilities Answer Date Recorded In the past 12 months has [employer], gas, oil, or water [employer] threatened to shut off services in your [...] on file Legal Sex Female 10:06 AM TREASURER Gender Identity Female 06/17/2024 7:02 AM CDT [...] - - Weight 63.5 kg (140 lb) 06/27/2025 10:00 AM CDT Height 165.1 cm (5' 5) 06/27/2025 10:00 AM CDT Body Mass Index 23.3 06/27/2025 10:00 AM CDT Plan of Treatment Upcoming Encounters Date Type Department Care Team (Late st Contact Info) Description 07/10/2025 7:30 AM TREASURER Hospital Encounter [facility] Endoscopy [address] [address] [address] Rose Negron MD [address] [place] [address] 07/10/2025 7:30 AM TREASURER - 07/10/2025 8:15 [address] Surgery [facility] Endoscopy [address] [address] [address] Rose Negron MD [address] [place] [address] COLONOSCOPY Scheduled Procedures Name Priority Associated Diagnoses Date/Ti me COLONOSCOPY Encounter for screening colonoscopy History of colitis Loose stools 07/10/2025 7:30 AM TREASURER ESOPHAGOGASTRODUODENOSCOPY Open Access Gastroesophageal reflux disease, unspecified [...] 2025 02/20/2021, 01/23/2021 Influenza Vaccine (#1) 2025 3, 07/01/2022, 06/18/2022, Additional history exists DTaP/Tdap/Td Vaccine [...] images may or may not represent the kaguy[place] source data set and thus may contain [...] IMAGING STUDY STUDY INITIALLY PERFORMED: 03/13/2025 at [facility]. TYPE OF STUDY: Multiple MR images of [...] She is s/p hiatal hernia repair at [facility] in 2012. Remote hx of appendectomy [...] IMAGING STUDY STUDY INITIALLY PERFORMED: 03/13/2025 at [facility]. TYPE OF STUDY: Multiple MR images of [...] She is s/p hiatal hernia repair at [facility] in 2012. Remote hx of appendectomy [...] images may or may not represent the kaguy[place] source data set and thus may contain changes that may lower the accuracy of this second-opinion interpretation. Dictated by: Shoshana Bradley M.D. The radiology attending physician has personally reviewed this study, and had reviewed and/or edited this written report and agrees with it. Electronically signed by: Gracy Ferrera M.D. Lauren CASTREJON IMSukhjinder MRI PROCEDURES Final Result * XR KUB [...] signed by: Julianne Epps M.D. Lauren CASTREJON Sukhjinder XR PROCEDURES Final Result * MR Body Outside Reference (06/06/2025 6:16 PM CDT) Impressions RAD_PACS_[facility] - 06/06/2025 6:16 PM CDT These images are for Reference purposes only and have not been reviewed by [facility] Radiology. There will be no report generated by a [facility] Radiologist. Narrative RAD_PACS_[facility] - 06/06/2025 6:16 PM CDT EXAMINATION: Images For Reference Purposes Only us Rose Negron MD IMG MRI PROCEDURES Final Resul t RAD_PACS[facility] * Colonoscopy (02/21/2025 1:14 PM CDT) Anatomical Region Laterality Modality Other Narrative Procedure Note Marv Earl MD - 02/21/2025 1:14 PM CDT GI ENDOSCOPY [facility] Patient Name: Sarahy Gill Procedure Date: 02/21/2025 1:14 PM Date of : 1970 Admit Type: Outpatient Age: 54 Gender: Female Attending MD: Marv Earl M.D. Room: [facility] ENDOSCOPY ROOM 9 Note Status: Finalized [...] scope was passed under direct vision.The CF [id number] endoscope was introduced through the anus and advanced to the terminal ileum. The colonoscopy was performed without difficulty. The patient tolerated the procedure well. The qualityof the bowel preparation was evaluated using the BBPS ([place] Bowel Preparation Scale) with scores of:Right Colon [...] pathology results. - Follow up with primary health officer. - Continue home medications. - Resume previous diet. - Follow up with referring physician as previously scheduled. - In the unusual situation that you developabdominal, bleeding or other significant problems in the days following this procedure please call [phone] ask for my nurse, Abena Lam. After hours and evenings please call [phone] and speak to theGI fellow motors and controls tester. Please tell the fellow that Dr. Earl did your procedure and that you were instructed to have the fellow call me or thephysician covering for me to discuss the management of your condition. 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
--- OUTSIDE RECORDS SUMMARY | 2025-06-28 01:05 | XMS_ITS | Encounter Summary ---
Author Organization [facility] Healthcare Address [address] [place] [address] Care Team Providers Care Mechanical Planner Name Role Phone Mere Landa NP Unavailable [phone] Parmjit Dai MD Primary Care Provider [phone] Tico Burton MD Unavailable [phone] Ivan Liang MD Unavailable Mandeep Pennington DO Primary Care Provider Reason for Visit * Reason Onset Date Comments Scheduling Appointments 06/19/2021 confirmi ng mammogram appt Encounter Details Date Type Department Care Team (Late Contact Info) Description 06/19/2021 Telephone [facility] [address] [place] [id number] Cheryl Trejo RT Scheduling Appointments (confirming mammogram [...] on file Legal Sex Female 10:06 AM BOW REHAIRER Gender Identity Female 06/17/2024 7:02 AM CDT Sexual Orientation Not on file documented as of this encounter Plan of Treatment Upcoming Encounters Date Type Department Care Team (Late Contact Info) Description 07/10/2025 7:30 AM BOW REHAIRER Hospital Encounter [facility] Endoscopy [address] [address] [address] Rose Negron MD [address] [place] [address] 07/10/2025 7:30 AM BOW REHAIRER - 07/10/2025 8:15 AM BOW REHAIRER Surgery [facility] Endoscopy [address] [address] [address] Rose Negron MD [address] [place] [address] COLONOSCOPY Scheduled Procedures Name Priority Associated Diagnoses Date/Ti me COLONOSCOPY Encounter for screening colonoscopy History of colitis Loose stools 07/10/2025 7:30 AM BOW REHAIRER ESOPHAGOGASTRODUODENOSCOPY Open Access Gastroesophageal reflux disease, unspecified whether esophagitis present ESOPHAGOGASTRODUODENOSCOPY Open Access Dysphagia, unspecified type documented as of this encounter Visit Diagnoses Not on filedocumented in this encounter Additional Health Concerns Infection Onset Date Last Indicated Resolved Time COVID: Suspected 06/09/2022 06/09/2022 06/09/2022 11:28 PM CDT COVID: Suspected 07/06/2022 07/06/2022 07/06/2022 3:52 AM BOW REHAIRER COVID: Suspected 08/18/2022 08/18/2022 08/18/2022 12:59 AM BOW REHAIRER COVID: Suspected 09/19/2023 09/19/2023 09/19/2023 11:01 AM BOW REHAIRER C. difficile suspected 07/21/2024 07/21/202407/22 3:05 AM BOW REHAIRER C. difficile suspected 06/16/2025 06/16/202506/17 7:26 PM CDT documented as of this encounter Care Teams Mechanical Planner Relationship Specialty Start Date End Date Parmjit Dai MD PCP - General 12/31/20 02/13/25 Mandeep Pennington DO PCP - General Internal Medicine 02/14/25 Mere Ladna NP Nurse Practitioner 02/07/20 Tico Burton MD Surgeon General Surgery 08/09/21 Ivan Liang MD Consulting Physician General Surgery 09/09/23 documented as of this encounter
--- OUTSIDE RECORDS SUMMARY | 2025-06-28 01:06 | XMS_ITS | Patient Health Record ---
Author Organization [facility] [employer] [facility] Address [address] [place] [address] Care Team Providers Care Door To Door Fundraising Collector Name Role Phone Ru Gonzales Unavailable [phone] Reason For Referral No Information Medications Medication [...] MG TABLET *Reorder f rom [facility] for eRx and Interaction Alerts* 12/02/2023 Active Eliquis 5 MG Tablet Oral 12/02/2023 Active LUBIPROSTONE 24 MCG CAPSULE *Reorder from [facility] for eRx and Interaction Alerts* [...] Date Coverage End Date [employer] - [facility] Benefit Plan Management Ppo [address] JULIANA PANDA [id number] MARIA E NAZARIO Spouse - patient is the spouse of the insured [employer] Medicare Replacement /Advantage - Ppo [address] [address] [place] [address] [id number] LUKASZ NAZARIO Self - patient is the insured Medical (General) History Surgical History Surgery Date(Month/Year) Endometrial ablation (80197) 08/31/2011 Removal of gallbladder (43571) 3 Appendectomy (22546) 09/09/2023
--- OUTSIDE RECORDS SUMMARY | 2025-06-28 01:06 | XMS_ITS | Clinical Summary ---
Author Organization [facility] Address [address] [place] [address] Phone Care Team Providers Care Driver Operator Name Role Phone Parmjit Dai MD Primary Care Provider [phone] Jazmine Kulkarni MD Unavailable [phone] Mir Spencer MD Unavailable Allergies Active Allergy [...] Comments Blood Pressure 96/66 10/29/2023 8:05 AM U.S. SENATOR Pulse 52 10/29/2023 8:05 AM U.S. SENATOR Temperature 36.9 C (98.4 F) 10/16/2023 8:53 AM U.S. SENATOR Respiratory Rate 20 10/29/2023 8:05 AM U.S. SENATOR Oxygen Saturation 100% 10/16/2023 8:53 AM U.S. SENATOR Inhaled Oxygen Concentration - - Weight 56.7 kg (125 lb) 10/29/2023 8:05 AM U.S. SENATOR Height 162.6 cm (5' 4) 10/29/2023 8:05 AM U.S. SENATOR Body Mass Index 21.46 10/29/2023 8:05 AM U.S. SENATOR Plan of Treatment Health Maintenance Due Date [...] age to complete this topic Insurance [place]ICAID [place] MEDICARE C [facility] Care Teams Driver Operator Relationship Specialty Start Date End Date Parmjit Dai MD [address] [place] [address] [address] [place] [address] PCP - General Family Medicine 05/21/22 Jazmine Kulkarni MD [address] [place] [address] [address] [place] [address] Family Medicine 05/21/22 Mir Spencer MD [address] [place] [address] Consulting Physician Urology 10/29/23
[2025-06-28 01:08] LABS: Add Urine Microscopic? YES; Appearance Urine Cloudy (Clear); Glucose Urine UA Negative (Negative); Leukocyte Esterase Ur 3+ LEU/UL (Negative); Nitrate Urine Negative (Negative); Non Pathogenic Casts 0-2; Specific Grav Ur 1.004 (1.001-1.035)
[2025-06-28 01:14] LABS: Alanine Aminotransferase 22 U/L (6-35); Albumin Level 4.9 g/dL (3.5-5.1); Alkaline Phosphatase 76 U/L (38-126); Anion Gap 11 mmol/L (4-12); Aspartate Amino Transferase 44 U/L (14-36); Bilirubin,Total 0.9 mg/dL (0.2-1.3); Blood Urea Nitrogen 5 mg/dL (7-17); Calcium 9.6 mg/dL (8.4-10.2); Carbon Dioxide 22 mmol/L (22-30); Chloride 102 mmol/L (98-107); Estimated CRCL calculation 64 ml/min; Estimated Glomerular Filt Rate > 60; Glucose 119 mg/dL (65-110); Lipase 195 U/L (23-300); Potassium 3.8 mmol/L (3.4-5.0); Sodium 135 mmol/L (137-145); Total Protein 8.6 g/dL (6.3-8.2)
[2025-06-28 01:15] VITALS: BP 110/66; PULSE 75; RESP 20; O2SAT 100
[2025-06-28 01:30] VITALS: BP 103/59; PULSE 64; RESP 20; O2SAT 100
[2025-06-28 01:32] LABS: Cannabinoid Screen Urine Positive (Negative)
[2025-06-28] MEDS: cefTRIAXone 2 GM in SODIUM CHLORIDE 0.9% IV 100 ML 200 ML IVPB (01:32)
[2025-06-28 02:16] VITALS: BP 108/65; PULSE 63; RESP 14; O2SAT 100
== END 2025-06-28 02:35 | disposition home or self-care (01) ==
PROVIDERS: Emergency Provider Student in an Organized Health Care Education/Training Program; PCP Internal Medicine
DX: K52.9 Noninfective gastroenteritis and colitis, unspecified (principal); N39.0 Urinary tract infection, site not specified; I48.91 Unspecified atrial fibrillation; K21.9 Gastro-esophageal reflux disease without esophagitis; E78.5 Hyperlipidemia, unspecified; M19.90 Unspecified osteoarthritis, unspecified site; K58.1 Irritable bowel syndrome with constipation; K90.0 Celiac disease; G62.9 Polyneuropathy, unspecified; F32.A Depression, unspecified; F41.9 Anxiety disorder, unspecified; F17.290 Nicotine dependence, other tobacco product, uncomplicated; Z86.73 Personal history of transient ischemic attack (TIA), and cerebral infarction without residual deficits; Z86.0101 Personal history of adenomatous and serrated colon polyps; Z90.49 Acquired absence of other specified parts of digestive tract; Z79.01 Long term (current) use of anticoagulants
CPT/HCPCS: 36415; 80053; 80307; 81001; 83690; 85025; 96361; 96365; 96375; 96376; 99284; J0696; J1885; J2405; J7030

== ENCOUNTER 2025-07-02 06:13 | Emergency (ER) | payer OTHER, MEDICARE, SELFPAY ==
[2025-07-02 06:27] VITALS: BP 127/84; PULSE 58; RESP 16; TEMP 36.4; O2SAT 99
[2025-07-02 06:50] LABS: Hematocrit 36.4 % (37.0-47.0); Hemoglobin 12.0 g/dL (12.0-15.0); Immature Granulocyte Percent A 0.2 % (0-0.5); Lymphocytes Absolute Auto 1.55 K/mm3 (0.9-3.2); Mean Corpuscular HGB Conc 33.0 g/dl (32-36); Mean Corpuscular Hemoglobin 30.5 pg (26-34); Mean Corpuscular Volume 92.4 fl (80-100); Nucleated Red Blood Cells Absolute Auto 0.000 K/mm3 (0.0-0.012); Nucleated Red Blood Cells Perc 0.0 % (0.0-0.2); Platelet Count Result 317 k/mm3 (150-375); Red Blood Count 3.94 M/mm3 (4.2-5.4); White Blood Count 5.5 K/mm3 (4.5-10.0)
[2025-07-02 06:55] LABS: Add Urine Microscopic? YES; Appearance Urine Clear (Clear); Glucose Urine UA Negative (Negative); Leukocyte Esterase Ur 3+ LEU/UL (Negative); Nitrate Urine Negative (Negative); Non Pathogenic Casts 0-2; Specific Grav Ur 1.006 (1.001-1.035)
[2025-07-02 07:07] LABS: Alanine Aminotransferase 18 U/L (6-35); Albumin Level 4.8 g/dL (3.5-5.1); Alkaline Phosphatase 73 U/L (38-126); Anion Gap 9 mmol/L (4-12); Aspartate Amino Transferase 29 U/L (14-36); Bilirubin,Total 0.5 mg/dL (0.2-1.3); Blood Urea Nitrogen 6 mg/dL (7-17); Calcium 9.3 mg/dL (8.4-10.2); Carbon Dioxide 27 mmol/L (22-30); Chloride 104 mmol/L (98-107); Estimated CRCL calculation 56 ml/min; Estimated Glomerular Filt Rate > 60; Glucose 97 mg/dL (65-110); Lipase 197 U/L (23-300); Potassium 3.8 mmol/L (3.4-5.0); Sodium 140 mmol/L (137-145); Total Protein 8.1 g/dL (6.3-8.2)
[2025-07-02] MEDS: SODIUM CHLORIDE 0.9% IV 1,000 ML 999 ML IV CONT (08:32)
[2025-07-02] MEDS: ONDANSETRON INJ 4 MG/2 ML VIAL IV PUSH (08:32)
[2025-07-02 08:33] VITALS: BP 110/87; PULSE 66; RESP 15; O2SAT 100
--- NOTE | 2025-07-02 09:30 | ED.NAVMDI ---
HPI - Nausea/Vomiting/Diarrhea General Chief complaint: Nausea/Vomiting/Diarrhea Stated complaint: Back and abd pain, nausea, diarrhea Time Seen by Provider: 07/02/25 07:01 History of Present Illness HPI Narrative: Patient is a 55-year-old female who presents ER with abdominal cramping as well as nausea and diarrhea. This has been occurring since she started her cephalexin for UTI. She reports the diarrhea is yellow mucus like. No fevers or chills. No chest discomfort. She has tried taking dicyclomine. She is now having burning epigastric pain moving up into her chest. Related Data Home Medications ?Medication ?Instructions ?Recorded ?Confirmed ?Last Taken ?Type aluminum-mag hydroxide-simethicone 10 ml PO QID PRN Acid Reflux 05/28/20 06/27/25 07/23/24 History 400 mg-400 mg-40 mg/5 mL oral susp (Mylanta Maximum Strength) simethicone 125 mg chewable tablet 125 mg PO QID PRN Abdominal 05/28/20 06/27/25 04/24/21 21:00 History (Gas-X Extra Strength) Discomfort apixaban 5 mg tablet (Eliquis) 5 mg PO BID 10/23/23 06/27/25 07/30/24 History metoprolol succinate 25 mg 25 mg PO DAILY 10/23/23 06/27/25 07/30/24 History tablet,extended release 24 hr flecainide 100 mg tablet 100 mg PO Q12H 10/29/23 06/27/25 07/30/24 History buspirone 10 mg tablet 10 mg PO BID 07/07/24 06/27/25 07/30/24 History calcium carbonate [Calcium 600] PO 04/05/25 06/27/25 Unknown History cholecalciferol (vitamin D3) PO 04/05/25 06/27/25 Unknown History cyclobenzaprine 5 mg tablet mg PO 06/26/25 06/27/25 Unknown History Allergies Allergy/AdvReac Type Severity Reaction Status Date / Time prochlorperazine AdvReac Severe Confusion Verified 07/02/25 06:13 metoclopramide (From Reglan) AdvReac Intermediate anxiety Verified 07/02/25 06:13 azithromycin AdvReac Unknown STOMACH Verified 07/02/25 06:13 UPSET promethazine (From Phenergan) AdvReac Jittery Verified 07/02/25 06:13 Review of Systems Review of Systems: All systems reviewed & are unremarkable except as noted in HPI and below Constitutional: Constitutional: Reports no additional constitutional complaints Cardiovascular: Cardiovascular: Reports no additional cardiovascular complaints Respiratory: Respiratory: Reports no additional respiratory complaints Gastrointestinal: Gastrointestinal: Reports no additional gastrointestinal complaints FOR[facility]LY [facility], [facility] Past Medical History Medical History Foot pain, right Achilles tendon contracture, right Chondromalacia of right knee Anemia History of TIA (transient ischemic attack) Irritable bowel syndrome with constipation History of hyperlipidemia History of atrial fibrillation History of gastroesophageal reflux (GERD) Adenomatous colon polyp Atrial fibrillation Arthritis GERD (gastroesophageal reflux disease) Celiac disease Diverticulosis Anxiety and depression Neuropathy Migraine headache Surgical History Surgical History History of endometrial ablation Hx of hernia repair Hx of laparoscopy Hx of dilation and curettage History of colonoscopy with polypectomy (03/2021) And repeat colonoscopy 2022 Status post lateral meniscectomy of right knee (07/2024) Hx of emergency section History of appendectomy History of delivery History of tubal ligation History of [place] fundoplication History of cholecystectomy Family History Family History Mother Family history of elevated blood lipids Family history of arthritis Sibling Family history of arthritis Grandparent Cerebrovascular accident Family history of cardiovascular disease Hypertension Diabetes mellitus Other Heart disease Acute myocardial infarction Father Alcoholism Mother Alcoholism Depression Anxiety Grandparent Throat cancer Cerebrovascular accident Heart problem Social History Social History Social History: She lives at home with her of 6 years. This is her 3rd marriage. She had 6 children. One son and 5 daughters. She smoked half pack of cigarettes per day since she was 14 years old but switched to vaping nicotine several years ago. She rarely drinks alcohol and only minute amounts. She uses marijuana daily. Code status: Full code (she would not want to be on the ventilator long-term or if she had no quality of life ) Surrogate decision maker: Smoking packs per day: 0.5 Smoking cigarettes per day: 10.0 Years smoked: 15 Smoking pack-years: 7.50 Smoking status: Current every day smoker Tobacco type: e-cigarettes/vaping Second hand tobacco smoke exposure: No Additional smoking assessment comments: Currently vapes. Alcohol intake: never Substance use: current Substance use type: marijuana Other substance usage details: Daily Last use: 07/30/24 Living arrangements: with family Occupation/Education: other Additional occupation/education comments: disabled Gender identity (if verbalized by the patient): Female Sexual Orientation (if Verbalized by the Patient): Straight or Heterosexual Spiritual care concerns: No Exam Narrative: GENERAL: Well-appearing, well-nourished, and in no acute distress. HEAD: Normocephalic, atraumatic. ENT: Mucous membranes moist. CHEST: Clear to auscultation. No respiratory distress. HEART: Regular rate and rhythm. Normal peripheral pulses. ABDOMEN: Soft, nontender, nondistended. EXTREMITIES: Normal range of motion. No edema. SKIN: Warm, dry, no rash. NEURO: Alert and oriented x3. PSYCH: Normal mood and affect. Course Course Emergency Course: Patient resting comfortably. Informed of results. Urine culture showed no growth from a few days ago. She has already stopped her antibiotics. We will not continue them. She is likely having some gastroenteritis and has some side effects from the antibiotics. Patient provided a small amount of stool which was not substantial enough or watery enough to send for C diff testing. Discharge home. Vital Signs Vital signs: Vital Signs Temperature 97.5 F L 07/02/25 06:27 Pulse Rate 58 L 07/02/25 06:27 Respiratory Rate 16 07/02/25 06:27 Blood Pressure 127/84 07/02/25 06:27 Pulse Oximetry 99 07/02/25 06:27 Temperature 97.5 F L 07/02/25 06:27 Pulse Rate 66 07/02/25 08:33 Respiratory Rate 15 07/02/25 08:33 Blood Pressure 110/87 07/02/25 08:33 Pulse Oximetry 100 07/02/25 08:33 MDM - Nausea/Vomiting/Diarrhea Differential Diagnosis Differential diagnosis: Likely gastroenteritis, clostridium difficile infection, drug-induced nausea and vomiting, dehydration and other ( GERD, cardiac etiology) Medical Records Attestation: I reviewed the patient's medical records. Lab Data Attestation: I reviewed the patient's lab results. 07/02/25 06:43 07/02/25 06:43 Labs: Lab Results 07/02/25 Range/Units 06:43 WBC 5.5 (4.5-10.0) K/mm3 RBC 3.94 L (4.2-5.4) M/mm3 Hgb 12.0 (12.0-15.0) g/dL Hct 36.4 L (37.0-47.0) % MCV 92.4 (80-100) fl MCH 30.5 (26-34) pg MCHC 33.0 (32-36) g/dl RDW 12.4 (11.5-14.5) % Plt Count 317 (150-375) k/mm3 MPV 9.8 (7.4-10.4) fl Immature Gran % (Auto) 0.2 (0-0.5) % Neut % (Auto) 57.0 (45.5-73.1) % Lymph % (Auto) 28.0 (18.3-44.2) % [place] % (Auto) 12.8 H (2.6-8.5) % Eos % (Auto) 1.1 (0-4.4) % Baso % (Auto) 0.9 (0.2-1.2) % Lymph # (Auto) 1.55 (0.9-3.2) K/mm3 [place] # (Auto) 0.7 H (0.1-0.6) K/mm3 Eos # (Auto) 0.1 (0-0.3) K/mm3 Baso # (Auto) 0.1 (0.0-0.1) K/mm3 Abs Immat Gran (auto) 0.01 (0.00-0.031) K/mm3 Absolute Neuts (auto) 3.2 (1.3-6.7) K/mm3 Absolute Nucleated RBC 0.000 (0.0-0.012) K/mm3 Nucleated RBC % 0.0 (0.0-0.2) % Sodium 140 (137-145) mmol/L Potassium 3.8 (3.4-5.0) mmol/L Chloride 104 (98-107) mmol/L Carbon Dioxide 27 (22-30) mmol/L Anion Gap 9 (4-12) mmol/L BUN 6 L (7-17) mg/dL Creatinine 0.84 (0.7-1.0) mg/dL Estim Creat Clear Calc 56 ml/min Estimated GFR > 60 (59 - ) Glucose 97 (65-110) mg/dL Calcium 9.3 (8.4-10.2) mg/dL Total Bilirubin 0.5 (0.2-1.3) mg/dL AST 29 (14-36) U/L ALT 18 (6-35) U/L Alkaline Phosphatase 73 (38-126) U/L Total Protein 8.1 (6.3-8.2) g/dL Albumin 4.8 (3.5-5.1) g/dL Lipase 197 (23-300) U/L Urine Color Yellow (Yellow) Urine Appearance Clear (Clear) Urine pH 7.0 (5.0-9.0) Ur Specific [place] 1.006 (1.001-1.035) Urine Protein Negative (Negative) mg/dL Urine Glucose (UA) Negative (Negative) mg/dL Urine Ketones Negative (Negative) mg/dL Ur Blood (Man) Negative (Negative) Urine Nitrate Negative (Negative) Urine Bilirubin Negative (Negative) Urine Urobilinogen 0.2 (<2.0) mg/dL Leukocyte Esterase Rfl 3+ H (Negative) NEHA/UL Urine RBC 0-2 (0-2) /hpf Urine WBC 6-10 H (0-3) /hpf Ur Squamous Epith Cells Occasional (Few) /hpf Urine Bacteria None seen /hpf Urine Casts 0-2 Discharge Plan Discharge Clinical Impression: Medication side effect Patient Disposition: Home Condition: Stable Instructions: Acute Diarrhea (ED) Additional Instructions: Please drink plenty of fluids at home. Return to the emergency department if you develop high fevers, have persistent severe abdominal pain, or have bloody stools or vomit, as these could be signs of a more serious medical emergency. Return to the emergency department if you are unable to keep down liquids because of severe nausea/vomiting. Patient Language: Yakut Prescriptions: No Action metoprolol succinate 25 mg tablet extended release 24 hr 25 mg PO DAILY Eliquis 5 mg tablet 5 mg PO BID flecainide 100 mg tablet 100 mg PO Q12H calcium carbonate [Calcium 600] PO cholecalciferol (vitamin D3) PO gabapentin 100 mg capsule 200 mg PO QHS Qty: 60 2RF Rx Instructions: take two hours before desired sleep time cyclobenzaprine 5 mg tablet PO buspirone 10 mg tablet 10 mg PO BID ondansetron 4 mg tablet,disintegrating 4 mg PO Q8H PRN (Reason: nausea and vomiting) Qty: 14 0RF cephalexin 500 mg capsule 500 mg PO Q12H 7 Days Qty: 14 0RF simethicone [Gas-X Extra Strength] 125 mg Tablet,Chewable 125 mg PO QID PRN (Reason: Abdominal Discomfort) Patient Comments: Patient states that she takes one between meals. alum-mag hydroxide-simeth [Mylanta Maximum Strength] 400-400-40 mg/5 mL Suspension 10 ml PO QID PRN (Reason: Acid Reflux) Patient Comments: Patient states she takes in between meals and before bed. dicyclomine 20 mg tablet 20 mg PO TID PRN (Reason: Abdominal Discomfort) Qty: 15 0RF ondansetron 4 mg tablet,disintegrating 4 mg PO Q8H PRN (Reason: nausea and vomiting) Qty: 20 0RF Follow-up/Referrals: Mandeep Pennington DO [Primary Care Provider, Internal Medicine] - 1 Week
--- NOTE | 2025-07-02 09:32 | ECG_ITS ---
Test Date: 2025-07-02 09:51:22 Measurements Intervals Boaz Rate: 47 P: 39 DC: 164 QRS: 53 QRSD: 72 T: 57 QT: 468 QTc: 416 Interpretive Statements SINUS BRADYCARDIA WITH OCCASIONAL SUPRAVENTRICULAR PREMATURE COMPLEXES LOW QRS VOLTAGE IN PRECORDIAL LEADS [QRS DEFLECTION < 1.0 mV IN CHEST LEADS] Compared to ECG 06/13/2025 07:54:23 Low QRS voltage now present Sinus arrhythmia no longer present Electronically Signed On 07-02-2025 13:20:50 BURNING PLANT OPERATOR by Xiang Jones M.D.
[2025-07-02] MEDS: BELLADONNA ALK/PHENOB ELIX 10 ML, MAG HYDROX/ALUMINUM HYD/SIMETH 30 ML, LIDOCAINE 2% VI... PO (09:47)
[2025-07-02 09:53] VITALS: BP 113/72; PULSE 77; RESP 20; O2SAT 100
[2025-07-02 10:24] VITALS: BP 112/63; PULSE 47; RESP 13; O2SAT 100
== END 2025-07-02 10:28 | disposition home or self-care (01) ==
PROVIDERS: Emergency Provider Emergency Medicine; PCP Internal Medicine
DX: R10.9 Unspecified abdominal pain (principal); R11.0 Nausea; R19.7 Diarrhea, unspecified; T50.905A Adverse effect of unspecified drugs, medicaments and biological substances, initial encounter; F17.290 Nicotine dependence, other tobacco product, uncomplicated; F12.90 Cannabis use, unspecified, uncomplicated
CPT/HCPCS: 36415; 80053; 81001; 83690; 85025; 87086; 93005; 96361; 96374; 99284; A9270; J2405; J7030

== ENCOUNTER 2025-07-12 08:40 | Emergency (ER) | payer OTHER, MEDICARE, SELFPAY ==
--- OUTSIDE RECORDS SUMMARY | 2024-01-27 04:00 | XMS_ITS ---
Author Organization [facility] [employer] [facility] Address [facility] [address] [facility] [address] [place] [address] Care Team Providers Care Agricultural Equipment Design Engineer Name Role Phone Ru Gonzales Unavailable [phone] Erwin De Luna Unavailable [phone] Encounters Encounter Location Date Provider Diagnosis [facility] [place] [id number] [facility] [address] [facility] [address] [place] [address] 01/27/2024 Erwin De Luna Plan Of Treatment No Information Progress Notes * JEM MAYSB:[birth year] (55 yo F)Acc No.[id number]:01/27/2024 Patient: KSENIA FELIXA Provider: Theresa De Luna LCPC :1970 A ge:53 Y S ex:Female Date:01/27/2024 Address:[address] [place], [place] [id number] Billing Information: * Procedure Codes: * Electronic signature of Preeti De Luna LCPC on 07/12/2025 at 08:55 AM LOGGING TRACTOR OPERATOR Sign off status: Pending * Provider: Theresa De Luna LCPC Date: 0 01/27/2024 Generated for Candacei ng/Fadonaldog/eTransmitting on: 1 09/11/2024 08:55 AM LOGGING TRACTOR OPERATOR
--- OUTSIDE RECORDS SUMMARY | 2025-06-16 09:40 | XMS_ITS | Encounter Summary ---
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 Name Role Phone Mere Landa NP Unavailable [phone] Tico Burton MD Unavailable [phone] Ivan Liang MD Unavailable Mandeep Pennington DO Primary Care Provider [phone] Reason for Referral * Diagnostic Imaging (Routine) - Pending Review Specialty Diagnoses / Procedures Referred By Contac t Referred To Contact Diagnoses Celiac artery stenosis Procedures US Doppler Abdominal Vessels Complete US Doppler Abdominal Vessels Complete US Doppler Abdominal Vessels Complete Alyssa Ordoñez PA [address] [place] [address] Phone: tel: fax: [facility] [address] [place] [address] Referral ID Status Reason Start Date Expiration Date V isits Requested Visits Authorized [id number] Pending Review 06/21/2025 07/21/2026 1 1 EMAN Encounter Details Date Type Department Care Team (Late st Contact Info) Description 06/16/2025 10:40 AM CDT Office Visit [facility] Medicine Gastroenterology [address] [place] [address] Alyssa Ordoñez PA [address] [place] [address] Loose stools (Primary Dx); Colitis; Gastroesophageal reflux disease without esophagitis; Regurgitation of food; Dyssynergic defecation; Bloating; Pancreatic divisum; Celiac artery stenosis Social History Tobacco Use Types Packs/Day Years Used Date Smoking Tobacco: Every Day Vaping Passive Smoke Exposure: Never Smokeless Tobacco: Never Tobacco Cessation:Ready to Q uit: No; Counseling Given: Yes Comments:off and on Alcohol Use Standard Drinks/Week Comments No 0 (1 standard drink = 0.6 oz pur e alcohol) on occasion [facility] [employer] Answer Date Recorded In the past 12 months has [employer], [employer], oil, or water [employer] threatened to shut off services in your [...] How often do you attend [facility] or catholic services? Never 09/09/2023 Do you [...] on file Legal Sex Female 10:06 AM ROUTEMAN Gender Identity Female 06/17/2024 7:02 AM CDT Sexual Orientation Not on file documented as of this encounter Last Filed Vital Signs Vital Sign Reading Time Taken Comments Blood Pressure 114/72 06/16/2025 10:18 AM CDT Pulse 55 06/16/2025 10:18 AM CDT Temperature 36.9 C (98.5 F) 06/16/2025 10:18 AM CDT Respiratory Rate - - Oxygen Saturation 100% 06/16/2025 10:18 AM CDT Inhaled Oxygen Concentration - - Weight 63.6 kg (140 lb 3.2 oz) 06/16/2025 10:18 AM CDT Height 164.6 cm (5' 4.8) 06/16/2025 10:18 AM CD T Body Mass Index 23.47 06/16/2025 10:18 AM CDT documented in this encounter Functional Status documented as of this encounter Progress Notes * Alyssa Ordoñez PA - 06/16/2025 10:40 AM CDT [facility] OF MEDIC[facility] DIVISION OF GASTROENTEROLOGY Clinic Address: [address], [place] [id number] Mailing Address: [address] [place] [address], [place] [address] Return Visit NAME: Sarahy Gill : 1970 DOS: 06/16/2025 Reason for visit: Follow-up Primary Care Physician: Mandeep Pennington DO Subjective Chief complaint: Nausea, abdominal pain HPI Ms. Gill is a 55 y.o. female with history of IBS-mixed, atrial fibrillation on Eliquis, migraines who returns to the office for follow-up. Background clinical information: She was originally seen by Dr. Negron 10/2023 for multiple GI complaints including alternating diarrhea and constipation with bloating, sensation of fullness after cholecystectomy, nausea, sensationof regurgitation and food getting stuck in the chest with choking. She failed Baclofen. She is s/p hiatal hernia repair at [facility] in 2012. Remote hx of appendectomy for appendicitis and cholecystectomy. EGD 02/2024 showed tortuous esophagus and fundoplication. Esophageal manometry 02/08/2024 showed hypertensive LES with elevated post swallow residual pressures, representing a dysfunctional wrap and recurrent paraesophageal hernia, intact esophageal peristalsis. High-resolution anorectal manometry with balloon expulsion showed abnormal defecation dynamics with type 4 dyssynergic defecation and abnormal balloon expulsion. Pelvic floor therapy was recommended. At her last visit 02/19/2024, she reported improvement in boating with Buspirone, however dysphagiawas persistent. She was on Linzess for constipation and planned to start PFPT soon. She was referred to [facility] for potential fundoplication repair. She saw Dr. Davila 03/2024 and underwent EGD with Endoflip, YI 01/2025. EGD showed tortuous lower third of the esophagus, widely patent LES with no resistance and slight angulation at the level of the wrap which was intact, 1cm hiatal hernia, normal stomach and duodenum. YI was normal. Colonoscopy 01/2025 with stool in the entire colon, diverticulosis, normal colon and ileum mucosa, biopsies of right colon with focal active colitis (cryptitis), left colon with no significant abnormality. 02/2025 - Dr. Negron called patient. She reported abdominal pain on defecation, 3-4 loose stools with 1 terminating in mucus and blood, epigastric burning with eating. Did not start Linzess but taking Buspirone 10mg PO BID and Amitriptyline 10mg PO every day Advised to start daily yogurt, increase fiber, and stop Amitriptyline and start Duloxetine. Start Prucalopride for constipation. Doppler US of abdomen due to CTA showing celiac artery stenosis. She was unable to complete MRI/MRCP due to paresthesias in the arms. Consider EUS to evaluate possible pancreas divisum. Prep for colonoscopy was inadequate and she will need to consider alternative prep and repeat in upcoming 3 months. Today, she reports that she was doing relatively well until Thursday morning when she developed nausea, abdominal pain, loose stools, and vomited thick white material 4-5 times. She last vomited Thursday night. No hematemesis. She still has a sensation of early satiety, with stomach feeling it is contracted and tight. She massages the area to try to loosen it for relief. Discomfort is described as feeling as if she is holding her breath. Bowel movements were burning and she noticed bright red blood with wiping. Stool consistency was thick, yellow, and messy. She had 5-6 stools in two hours on Thursday. She had several false alarms as well. She had fecal leakage. She is trying to manage her condition without medications. Prior to the acute change Thursday, her bowel movements were regulated with 1-2 formed stools per day over the past 2-3 months with dietary interventions. She was eating well without pain or nausea. She is unsure if she ate something that triggered symptoms versus a potential viral infection. She is more aware and intentional with her diet.She has incorporated more fruit, granola, and daily Metamucil. She avoids fatty and greasy foods. Diet is consistent with egg, bagel, or fruit. She avoids eating late. She never started [employer]. She takes Colace as needed, however she has not needed it recently. She had an episode of intense pain, described as the worst in her entire life, felt that insides could explode in the epigastric area approximately [address] She could not breathe due to severity. Pain was severe for 5 minutes, started to subside and then recurred but was less severe within a few minutes. Previous episode was 6-8 months ago. Colonoscopy prep was poor. She had epigastric pain from the bowel prep and only completed 3/4 of it. She was able to resist vomiting and completed the first half of the prep, but had difficulty with the second round of the prep. She stopped Cymbalta because she does not want to take antidepressants. She takes Zofran as needed, typically 4mg every 4 hours. She remains on Pantoprazole 40mg BID. She is not on NSAIDs and was not on them at the time of her colonoscopy. No unintentional weight loss, she has actually gained back some of the weight she lost. She uses marijuana daily for anxiety and appetite. She stopped it for 6 months with no improvement. Patient Active Problem List Diagnosis Irritable bowel syndrome with both constipation and diarrhea Essential tremor Jerky body movements Orthostatic dizziness Hypertension Atrial fibrillation (HCC) Palpitations Migraine headache Abdominal pain, generalized Cyclic vomiting syndrome Bipolar affect, depressed Intussusception intestine TIA (transient ischemic attack) Dysuria Hypokalemia Periumbilical [...] pain Iron deficiency anemia Severe protein-calorie malnutrition Slow transit constipation Small intestinal bacterial overgrowth (SIBO) Tubular adenoma of colon Paresthesia of both lower extremities Gastroesophageal reflux disease Esophageal dysmotility Dyssynergic defecation Dysphagia Rectal bleeding Current Outpatient Medications: acetaminophen (TYLENOL) 500 mg tablet, Take 1 tablet (500 mg total) by mouth every 6 (six) hours asneeded, Disp: , Rfl: amitriptyline (ELAVIL) 10 mg tablet, Take 1 tablet (10 mg total) by mouth nightly, Disp: , Rfl: apixaban (ELIQUIS) 5 mg tablet, Take 1 tablet (5 mg total) by mouth 2 (two) times a day, Disp: , Rfl: busPIRone (BUSPAR) 10 mg tablet, Take 1 tablet (10 mg total) by mouth 2 (two) times a day, Disp: 60tablet, Rfl: 2 dicyclomine (BENTYL) 20 mg tablet, Take 1 tablet (20 mg total) by mouth 4 (four) times a day as needed (abdominal pain/cramping), Disp: 360 capsule, Rfl: 3 docusate sodium (COLACE) 100 mg capsule, Take 2 capsules (200 mg total) by mouth nightly, Disp: , Rfl: flecainide (TAMBOCOR) 100 mg tablet, TAKE 1 TABLET BY MOUTH TWICE DAILY. START TAKING SATURDAY 07/07, Disp: , Rfl: gabapentin (NEURONTIN) 100 mg capsule, Take 1 capsule (100 mg total) by mouth nightly, Disp: , Rfl: meclizine (ANTIVERT) 12.5 mg [...] nausea or vomiting, Disp: 20 tablet, Rfl: [address] (PROTONIX) 40 mg EC tablet, Take 1 tablet (40 mg total) by mouth 2 (two) times a day before breakfast and dinner, Disp: 60 tablet, Rfl: 1 simethicone (MYLICON) 125 mg chewable tablet, Take 1 tablet (125 mg total) by mouth as needed, Disp: , Rfl: SUMAtriptan (IMITREX) 6 mg/0.5 mL injection, , Disp: , Rfl: Allergies Allergen Reactions Metoclopramide Other (See comments) Had TIA after trying. Doesn't like the way it makes her body feel. Phenergan [Promethazine] Agitation Prochlorperazine Other (See comments) and Unknown made me feel weird, odd also agitation Zithromax [Azithromycin] Stomach upset ROS As outlined in HPI. All other systems negative. Objective Vital Signs BP 114/72 Pulse 55 Temp 36.9 ??C (98.5 ??F) Ht 164.6 cm (5' 4.8) Wt 63.6 kg (140 lb 3.2 oz) SpO2 100% BMI 23.47 kg/m?? Wt Readings from Last 3 Encounters: 06/16/25 63.6 kg (140 lb 3.2 oz) 02/21/25 63 kg (139 lb) 01/19/25 65.3 kg (144 lb) Physical exam GENERAL: Well-appearing, in no acute distress. HEENT: Sclerae anicteric. NECK: Supple. LUNGS: Clear to auscultation bilaterally. CARDIOVASCULAR: Regular rate and rhythm with no murmur. ABDOMEN: Bowel sounds normal. Abdomen is soft and non tender. No masses or organomegaly. EXTREMITIES: No edema. SKIN: No rash or jaundice. NEUROLOGIC: Grossly nonfocal on simple observation. Normal insight and memory. MENTAL STATUS/PSYCH: Alert and oriented. Answers questions appropriately with normal affect. Results including new since last visit: Labs Lab Results Component Value Date WBC [...] 35 10/07/2023 ALT 38 10/07/[address] abdomen pelvis with IV contrast 07/31/2024 Small sliding hiatal hernia. Normal liver and spleen. Changes of cholecystectomy. Pancrease divisum noted. No dilated loops of bowel. Wall thickening in the descending colon, may be secondary to under distention or colitis. Changes of appendectomy. CTA chest, abdomen, pelvis 10/07/2023 IMPRESSION: No evidence of pulmonary embolism is seen. No acute process is otherwise seen to explain the patient's symptoms. Esophagram 08/04/2023 IMPRESSION: 1. No evidence of hiatal hernia. Mild gastroesophageal reflux with provocative maneuvers. 2. There appears to be an outpouching of the gastric fundus projecting to the right which may represent a gastric diverticulum. 3. Mild tertiary and non pulsatile esophageal contractions. CTAP W 09/19/2023 IMPRESSION: No abscess or other acute postoperative complication identified. Trace pelvic edema. CTAP W 09/09/2023 IMPRESSION: Persistent ascending colonic wall thickening mucosal hyperenhancement compared to 08/19/2023. This finding is new compared to 09/04/2022. These findings are most compatible with colitis. However given persistence since 08/19/2023, underlying mass can not be excluded. Recommend follow-up colonoscopy when clinically feasible if not recently performed for further evaluation. Normal appendix. CTA abdomen pelvis 08/19/2023 IMPRESSION: Mild narrowing of the proximal celiac artery with slight post stenotic dilatation. This is of uncertain clinical significance. Slight thickening of the wall of the appendix with small appendicolith proximally. No definite acute findings of the appendix. Please correlate with clinical factors. No aortic aneurysm or dissection. No acute finding. Endoscopy Colonoscopy 02/21/2025 Impression: - The examined portion of the ileum was normal. Biopsied. - Stool in the entire examined colon. Preparation insufficient for polyp surveillance. - Diverticulosis in the sigmoid colon, in the descending colon and in the ascending colon. - Normal mucosa in the entire examined colon. Biopsied. - Non-bleeding internal hemorrhoids. Diagnosis: A. Small intestine, terminal ileum, biopsy: - Ileal mucosa with no significant abnormality. B. Colon, right, biopsy: - Colonic mucosa with focal active colitis (cryptitis). C. Colon, left, biopsy: - Colonic mucosa with no significant abnormality. EGD 02/21/2025 Impression: - Mildly tortuous esophagus in the lower third. Widely patent lower esophageal sphincter with no resistance with endoscope advancement, though slight angulation at the level of the wrap was noted. FLIP performed and demonstrates compliant lower esophageal sphincter with normal distensibility index. - 1 cm hiatal hernia. - A fundoplication was found. The wrap appears intact. - Normal stomach. - Normal examined duodenum. - The YI pH capsule was positioned 34 cm from the incisors, which was 6 cm proximal to the GE junction. EGD 02/08/2024 Impression: - Z-line regular, 40 cm from the incisors. - Tortuous esophagus. - Erythematous mucosa in the stomach. Biopsied. - Two mucosal papules (nodules) found in the stomach. Biopsied. - A fundoplication was found. - Normal examined duodenum. Diagnosis: A. Stomach, random biopsy: - Antral and oxyntic mucosa with no significant abnormality. - No Helicobacter pylori is seen. B. Stomach, nodule, biopsy: - Oxyntic mucosa with foveolar hyperplasia, erosion, acute and chronic inflammation and reactive epithelial changes, in keeping with a gastric hyperplastic polyp. - Negative for intestinal metaplasia or dysplasia. - No Helicobacter pylori is seen. EGD 08/21/2023 Findings: The examined duodenum was normal. A [...] dilator with no resistance at 52 Fr. Diagnosis: A. Gastric polyp, biopsy: - Consistent with hyperplastic polyp. - Negative for intestinal metaplasia and dysplasia. B. Esophagus, biopsy: - Fragments of benign squamous epithelium. C. Stomach, biopsy: - Antral type gastric mucosa showing mild chronic inactive gastritis. - Negative for intestinal metaplasia and dysplasia. - Negative for Helicobacter. Colonoscopy 10/29/2022 Findings: The perianal and digital rectal examinations [...] found during retroflexion. The hemorrhoids were small. Diagnosis: A. Colon, transverse, biopsy: - Tubular adenoma. - No evidence of high-grade dysplasia or malignancy. B. Colon, random, biopsy: - Colonic mucosa with no significant histopathologic abnormalities. Physiologic testing YI 02/21/2025 Normal acid exposure in the distal esophagus off PPI 1 of 4 heartburn episodes occurred within 2 minutes of onset of acid reflux event. Not statistically significant. High-resolution anorectal motility 02/08/2024 Abnormal defecation dynamics with type IV dyssynergic defecation and abnormal balloon expulsion, PFPT recommended. High-resolution esophageal manometry 02/08/2024 Impression: Hypertensive LES with elevated post swallow residual pressure, likely represents dysfunctional wrapor recurrent paraesophageal hernia. Consider barium esophagram. Intact esophageal body peristalsis. Assessment/Plan Loose stools - Symptoms are acute in onset for the past 4 days. Likely due to acute gastroenteritis. Check KUB to evaluate for overflow, pancreatic elastase, fecal calprotectin, C.diff, and cryptosporidium and giardia. Nausea and vomiting - Episode is acute in onset and likely due to viral gastroenteritis, however she does have a history of cyclic vomiting syndrome. Cannabinoid hyperemesis is on the differential aswell. Continue Amitriptyline and Ondansetron as needed. Recent EGD with normal stomach and duodenum. GERD/regurgitation - She saw [facility] who did not recommend surgical intervention as recent EGD 01/2025 showed tortuous lower third of the esophagus with patent LES, slight wrap angulation, fundoplicationwrap was intact. YI study showed normal acid exposure in the distal esophagus and symptoms did not correlate with reflux events. Continue Pantoprazole. Pelvic floor dyssynergia - High-resolution anorectal manometry with balloon expulsion showed abnormal defecation dynamics with type 4 dyssynergic defecation and abnormal balloon expulsion. Pelvic floor PT is recommended. Colitis - Colonoscopy 01/2025 with stool in the entire colon, diverticulosis, normal colon and ileum mucosa, biopsies of right colon with focal active colitis (cryptitis), left colon with no significant abnormality. Clinical significance is unclear. She was not on NSAIDs. Check fecal calprotectin, C. Diff, and cryptosporidium and giardia. Will refer for repeat colonoscopy due to poor prep. Bloating - Improved with Buspirone, continue. Epigastric pain - Etiology unclear. Recent EGD 01/2025 with normal stomach and duodenum. Will ask radiology to review MRI/MRCP and will order doppler US of the abdomen given celiac stenosis on CTA. Pancreatic divisum - Recent MRI/MRCP performed at OSH to evaluate. I will ask our radiologist to read it. Celiac artery stenosis - Will order doppler US of the abdomen to evaluate. Colon cancer screening - Colonoscopy 02/21/2025 with stool in the entire colon, insufficient for polyp surveillance. Will refer for repeat colonoscopy with low volume prep as she is unable to tolerate Golytely. Diagnoses and all orders for this visit: Loose stools - Calprotectin, fecal; Future - C. difficile testing Stool; Future - Pancreatic elastase, stool; Future - Cryptosporidium and Giardia antigen assay Stool; Future - XR KUB; Future Colitis - Calprotectin, fecal; Future - C. difficile testing Stool; Future - Cryptosporidium and Giardia antigen assay Stool; Future Orders Orders Placed This Encounter Procedures C. difficile testing Stool Cryptosporidium and Giardia antigen assay Stool XR KUB Calprotectin, fecal Pancreatic elastase, stool LUCÍA Dunham [place] [address] [place] [id number] Time spent (in minutes) Time precharting/reviewing records: 20 Time for Visit/face to face: 40 Additional Time charting/note completion: 10 Total Time for visit: 70 minutes Cosigned by Rose Negron MD at 06/25/2025 4:47 PM CDT documented in this encounter Miscellaneous Notes * Addendum Note - Alyssa Ordoñez PA - 06/16/2025 10:40 AM CDTAddended by: ALYSSA ORDOÑEZ on: 06/21/2025 12:01 PM Modules accepted: Orders * Addendum Note - Evelyn Kerns LPN - 06/16/2025 10:40 AM CDTAddended by: EVELYN KERNS on: 06/21/2025 02:29 PM Modules accepted: Orders * Addendum Note - Evelyn Kerns LPN - 06/16/2025 10:40 AM CDTAddended by: EVELYN KERNS on: 07/12/2025 12:06 PM Modules accepted: Orders EMAN documented in this encounter Plan of Treatment Scheduled Orders Name Type Priority Associated Diagnoses Orde r Schedule US Doppler Abdominal Vessels Complete Imaging Schedule Routine, Read Routine (OP Routine) Celiac artery stenosis Expected: 07/12/2025, Expires: 06/21/2026 Scheduled Procedures Name Priority Associated Diagnoses Date/Ti pa ESOPHAGOGASTRODUODENOSCOPY Open Access Gastroesophageal reflux disease, unspecified whether esophagitis present ESOPHAGOGASTRODUODENOSCOPY Open Access Dysphagia, unspecified type documented as of this encounter Results * Cryptosporidium and Giardia antigen assay Stool (07/05/2025 1:00 PM ROUTEMAN) Giardia Ag Negative Negative Comment:Testing performed by : , [address] [facility] [place]., [address] Cryptosporidium Ag Negative Negative Guy GONZALEZ ([place]) Comment: Interpretive data: Testing performed by the [facility] using an immunoassay that detects Cryptosporidium and Giardia antigens in stool specimens. If comprehensive examination for ova and parasites is required, please request Ova and Parasite Examination. Testing performed by: , [address] [facility], [place]., [address] Stool 07/05/2025 1:00 PM ROUTEMAN 07/05/2025 8:41 PM ROUTEMAN us Alyssa [facility] MICROBIOLOGY - GENER AL ORDERABLES Final Result BREN GONZALEZ ([place]) [address] [facility] [place] [address] * Pancreatic elastase, stool (07/05/2025 1:00 PM ROUTEMAN) [facility] Pancreatic elastase, stool >500 >200 (Normal) mcg/g [place] ref Lab Comment: Test Performed by: [facility] [address] [place] [address] Life Skills Specialist: Sammie Larsen Ph.D.; CLIA# [id number] Stool 07/05/2025 1:00 PM ROUTEMAN 07/05/2025 2:50 PM ROUTEMAN us Alyssa [facility] BODY FLUIDS AND STOO LS ORDERABLES Final Result Performing Organization Address City/[facility]/ZIP Co de Phone Number GOODELAINA LISA ([place]) [address] [facility] [place] [address] [place] ref Lab * (ABNORMAL) C. difficile testing Stool (07/05/2025 1:00 PM ROUTEMAN) Pathologist [facility] Result Positive Negative Comment:Critical result call ed to and read back by Katharine Carty ([phone]) on 07/05/2025 15:49:52 ROUTEMAN to [id number]. Toxin Result Positive Negative BREN OGNZALEZ ([place]) Comment:Critical result call ed to and read back by Katharine Carty ([phone]) on 07/05/2025 15:49:52 ROUTEMAN to [id number]. C. diff result Positive, free toxin(A) Negative, free toxin BREN GONZALEZ ([place]) C. diff interp Toxigenic Clostridioides (Clostridium) difficile detected. Analysis was performed using a two-step methodology using glutamate dehydrogenase antigen detection followed by detection of C. difficile toxin(s). BREN GONZALEZ ([place]) Stool 07/05/2025 1:00 PM ROUTEMAN 07/05/2025 2:51 PM ROUTEMAN Alyssa [facility] MICROBIOLOGY - [facility] AL ORDERABLES Final Result Performing Organization Address [facility] Co de Phone Number BREN GONZALEZ ([place]) [address] [facility] [place] [address] * Calprotectin, fecal (07/05/2025 1:00 PM ROUTEMAN) Calprotectin, fecal <50.0 <50.0 (Normal) mcg/g [place] ref Lab Comment: Test Performed by: [place] [address] Life Skills Specialist: Sammie Larsen Ph.D.; CLIA# [id number] Stool 07/05/2025 1:00 PM ROUTEMAN 07/05/2025 2:52 PM ROUTEMAN Alyssa [facility] BODY FLUIDS AND STOO LS ORDERABLES Final Result Performing Organization Address [facility] de Phone Number BREN GONZALEZ ([place]) [address] [facility] [place] [address] [place] ref Lab * XR KUB (06/16/2025 11:25 AM CDT) Anatomical Region Laterality Modality Body, Abdomen N/A Computed Radiogr aphy 06/16/2025 11:2 7 AM CDT Impressions 06/16/2025 11:30 AM CDT Bowel gas pattern is within normal limits. Cholecystectomy clips overlie the right upper quadrant. Dictated by: Kassidy Sandoval M.D. The radiology attending physician has personally reviewed this study, and had reviewed and/or edited this written report and agrees with it. Electronically signed by: Julianne Epps M.D. Narrative 06/16/2025 11:30 AM CDT EXAMINATION: Abdomen, one view. HISTORY: Abdominal pain. COMPARISON: None Procedure Note Julianne Epps MD - 06/16/2025 EXAMINATION: Abdomen, one view. HISTORY: Abdominal pain. COMPARISON: None IMPRESSION: Bowel gas pattern is within normal limits. Cholecystectomy clips overlie the right upper quadrant. Dictated by: Kassidy Sandoval M.D. The radiology attending physician has personally reviewed this study, and had reviewed and/or edited this written report and agrees with it. Electronically signed by: Julianne Epps M.D. 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 Stricture of artery Loose stools Abnormal feces documented in this encounter Discontinued Medications Medication Sig Discontinue Reason Start Date End Da te albuterol HFA (PROVENTIL HFA,VENTOLIN HFA,PROAIR HFA) 90 mcg/actuation inhaler 2 puffs every 4 (four) hours as needed Therapy completed 04/03/2023 06/16/2025 atorvastatin (LIPITOR) 40 mg tabletIndications:hype rlipidemia Take 1 tablet (40 mg total) by mouth daily Patient Reported 08/13/2021 06/16/2025 cephalexin (KEFLEX) 500 mg capsule Take 1 capsule (500 mg total) by mouth every 12 (twelve) hours Therapy completed 11/20/2023 06/16/[address] (CYMBALTA) 30 mg capsule Take 1 capsule (30 mg total) by mouth daily Therapy completed 03/14/2025 06/16/2025 famotidine (PEPCID) 20 mg tablet Take 1 tablet (20 mg total) by mouth daily as needed for indigestion or heartburn Therapy completed 04/17/2023 06/16/2025 prucalopride (MOTEGRITY) 2 mg tablet Take 1 tablet (2 mg total) by mouth daily Therapy completed 03/14/2025 06/16/2025 documented as of this encounter Historical Medications * This list may reflect changes made after this encounter. simethicone (MYLICON) 125 mg chewable tablet Take 1 tablet (125 mg total) by mouth as needed 05/28/2020 gabapentin (NEURONTIN) 100 mg capsule Take 1 capsule (100 mg total) by mouth nightly 06/05/2025 amitriptyline (ELAVIL) 10 mg tablet Take 1 tablet (10 mg total) by mouth nightly 06/04/2025 added in this encounter Additional Health Concerns Infection Onset Date Last Indicated Resolved Time C. difficile suspected 06/16/2025 07/05/202506/17 7:26 PM CDT C. difficile suspected 07/05/2025 07/05/202507/05 3:50 PM ROUTEMAN C. difficile 07/05/2025 07/05/2025 documented as of this encounter Care Teams Fur Dry Cleaner Hand Relationship Specialty Start Date End Date Mandeep Pennington DO PCP - General Internal Medicine 02/14/25 Mere Landa NP Nurse Practitioner 02/07/20 Tico Burton MD Surgeon General Surgery 08/09/21 Ivan Liang MD Consulting Physician General Surgery 09/09/23 documented as of this encounter
[2025-07-12] VITALS (15 sets, daily range): BP systolic 102–134; BP diastolic 54–87; PULSE 48–68; RESP 14–18; TEMP 36.3; O2SAT 98–100
--- NOTE | ~2025-07-12 | CT_ITS ---
PROCEDURE: [Procedure] INDICATION: Abdominal pain after treatment for C. Difficile COMPARISON(S): None. TECHNIQUE: Multiplanar images of the abdomen and pelvis were obtained with intravenous contrast solution.. Diagnostic sensitivity is limited due to lack of oral contrast. Dose lowering technique and dose optimization was utilized. FINDINGS: Inferior thorax: No significant abnormality is seen. Liver: Markedly fatty infiltrated. Gallbladder: Surgically absent Pancreas: Within normal limits. Spleen: Normal in size and appearance. Adrenal glands: There are no masses seen. Kidneys: There is no hydronephrosis seen on either side. No urinary tract stones are seen. There are no suspicious masses seen. There is a small cyst versus cortical scarring in the right kidney. GI tract: There is no evidence of bowel obstruction. Parts of the colon are collapsed, and, in these regions, colonic inflammation cannot be excluded. Major vessels: The major vessels are normal in caliber. Sex specific pelvic organs: No significant abnormality is seen. Bladder: The bladder appears normal. Bones: Within normal limits for the patient's age. Tiny umbilical hernia containing only fat. IMPRESSION: No significant abnormality is seen. Reviewed, dictated and finalized at location A. [facility]
--- OUTSIDE RECORDS SUMMARY | 2025-07-12 08:55 | XMS_ITS | Encounter Summary ---
Author Organization [facility] Address [address] [place] [address] Phone Care Team Providers Care Safety Assistant Name Role Phone Mere Landa NP Unavailable [phone] Tico Burton MD Unavailable [phone] Ivan Liang MD Unavailable Mandeep Pennington DO Primary Care Provider [phone] Encounter Details Date Type Department Care Team (Latest Contact Info) Description 06/30/2025 Results Follow-Up [facility] Gastroenterology [address] [place] [address] Medical Office [address], [address] [place] [address] Lauren Fuentes PA [address] [place] [address] XR KUB, C. difficile testing Stool, Cryptosporidium and Giardia antigen assay Stool, Additional followed-up results: 2 Social History Tobacco Use Types Packs/Day Years Used Date Smoking Tobacco: Every Day Vaping Passive Smoke Exposure: Never Smokeless Tobacco: Never Comments:off and on Alcohol Use Standard Drinks/Week Comments No 0 (1 standard drink = 0.6 oz pur e alcohol) on occasion [facility] Utilities Answer Date Recorded In the past 12 months has th e [employer], gas, oil, or water [employer] threatened to shut off services in your [...] often do you attend chur ch or tenriism services? Never 09/09/2023 Do you [...] on file Legal Sex Female 10:06 AM ARMHOLE PRESSER Gender Identity Female 06/17/2024 7:02 AM CDT Sexual Orientation Not on file documented as of this encounter Ordered Prescriptions Prescription Sig Dispense Quantity Refills Last Filled Start Date End Date fidaxomicin (DIFICID) tabletIndications: Clostridioides difficile infection Take 1 tablet (200 mg total) by mouth 2 (two) times a day for 10 days 20 tablet 07/06/2025 07/16/2025 documented in this encounter Miscellaneous Notes * Addendum Note - Evelyn Kerns LPN - 07/06/2025 8:03 AM CSTAddended by: EVELYN KERNS on: 07/06/2025 08:03 AM Modules accepted: Orders OLE PRESSER * Telephone Encounter - Evelyn Kerns LPN - 07/05/2025 4:25 PM CST Pt not taking any abx since last d/t side effects and has not started any other abx. Advised will send in medication to treat and that colonoscopy will be postponed at this time. Discussed C. Diff with patient as she reports she has never had this before. Advised proper hand hygiene after BM's. Will also send information to patient via [employer]. All questions answered. ----- Message from LUCÍA Amaya sent at 07/05/2025 4:03 PM ARMHOLE PRESSER ----- C. Diff is positive. Is she still on other antibiotics? Let me know as we may need to adjust her C.Diff treatment. We need to delay colonoscopy and treat with Fidaxomicin 200mg twice daily for 10 days. (Potentially longer depending on if she is on other antibiotics) ----- Message ----- From: Interface, Lab Results In Sent: 07/05/2025 3:50 PM ARMHOLE PRESSER To: LUCÍA Dunham OLE PRESSER OLE PRESSER documented in this encounter Plan of Treatment Scheduled Procedures Name Priority Associated Diagnoses Date/Ti me ESOPHAGOGASTRODUODENOSCOPY Open Access Gastroesophageal reflux disease, unspecified whether esophagitis present ESOPHAGOGASTRODUODENOSCOPY Open Access Dysphagia, unspecified type documented as of this encounter Visit Diagnoses Not on filedocumented in this encounter Additional Health Concerns Infection Onset Date Last Indicated Resolved Time C. difficile suspected 07/05/2025 07/05/202507/05 3:50 PM ARMHOLE PRESSER C. difficile 07/05/2025 07/05/2025 documented as of this encounter Care Teams Safety Assistant Relationship Specialty Start Date End Date Mandeep Pennington DO PCP - General Internal Medicine 02/14/25 Mere Landa NP Nurse Practitioner 02/07/20 Tico Burton MD Surgeon General Surgery 08/09/21 Ivan Liang MD Consulting Physician General Surgery 09/09/23 documented as of this encounter
--- OUTSIDE RECORDS SUMMARY | 2025-07-12 08:55 | XMS_ITS | Clinical Summary ---
Author Organization [facility] Omar granado [facility] Address [address] [facility] [place] [address] Care Team Providers Care Dry Cleaner Apprentice Name Role Phone Unavailable Primary Care Provider [...] st Contact Info) Description 09/26/2025 10:30 AM LABEL REWINDER Office Visit [facility] Oncology and Hematology - [place] [facility] [address] [address] Vicente Vail MD [address] [place] [address] Health Maintenance Due Date Last [...] 2018 INFLUENZA VACCINE (#1) 2025 Insurance [facility] [id number]
--- OUTSIDE RECORDS SUMMARY | 2025-07-12 08:56 | XMS_ITS | Patient Health Record ---
Author Organization [facility] Address [address] [place] [address] Care Team Providers Care Dye Expert Name Role Phone Ru Gonzales Unavailable [phone] Reason For Referral No Information Medications Medication [...] MOTEGRITY 2 MG TABLET *Reorder f rom [facility] for eRx and Interaction Alerts* 12/02/2023 Active Eliquis 5 MG Tablet Oral 12/02/2023 Active LUBIPROSTONE 24 MCG CAPSULE *Reorder from [facility] for eRx and Interaction Alerts* 12/02/2023 [...] Start Date Coverage End Date [employer] - [facility] Benefit Plan Management Ppo [address] [place] PAN[place] [id number] MARIA E NAZARIO Spouse - patient is the spouse of the insured [employer] Medicare Replacement /Advantage - Ppo [address] [address] [place] [address] [id number] LUKASZ NAZARIO Self - patient is the insured Medical (General) History Surgical History Surgery Date(Month/Year) Endometrial ablation (27417) 08/31/2011 Removal of gallbladder (58429) 3 Appendectomy (98481) 09/09/2023
--- OUTSIDE RECORDS SUMMARY | 2025-07-12 08:56 | XMS_ITS | Clinical Summary ---
Author Organization [facility] HealthCare Care Team Providers Care Infection Control Preventionist Name Role Phone CordellMere NP Unavailable [phone] Tico Burton MD Unavailable [phone] Ivan Liang MD Unavailable Mandeep Pennington DO Primary Care Provider [phone] Allergies Active Allergy Reactions Criticality Noted Date [...] DAILY. START TAKING Saturday 07/0707/08/20 22 Active docusate sodium (COLACE) 100 mg capsuleIndica tions:constip ation Take 2 capsules (200 mg total) by mouth nightly Active meclizine (ANTIVERT) 12.5 mg tablet Take 1 tablet (12.5 mg total) by mouth 3 (three) times a day as needed 10/16/19 24 Active SUMAtriptan (IMITREX) 6 mg/0.5 mL injection 01/04/20 24 Active busPIRone (BUSPAR) 10 mg tabletIndicat ions:Generali zed Anxiety Disorder Take 1 tablet (10 mg total) by mouth 2 (two) times a day 60 tablet 2 01/17/20 25 Active acetaminophen (TYLENOL) 500 mg tablet Take 1 tablet (500 mg total) by mouth every 6 (six) hours as needed 07/18/[address] (PROTONIX) 40 mg EC tablet Take 1 tablet (40 mg total) by mouth 2 (two) times a day before breakfast and dinner 60 tablet 1 02/14/20 25 Active amitriptyline (ELAVIL) 10 mg tablet Take 1 tablet (10 mg total) by mouth nightly 06/04/20 25 Active gabapentin (NEURONTIN) 100 mg capsule Take 1 capsule (100 mg total) by mouth nightly 06/05/20 25 Active simethicone (MYLICON) 125 mg chewable tablet Take 1 tablet (125 mg total) by mouth as needed 05/28/20 20 Active sodium, potassium & mag sulfates (Suprep Bowel Prep Kit) 17.5-3.13-1.6 gram recon solnIndicatio ns:Bowel Evacuation MIX AND DRINK INSTRUCTED FOR BOWEL PREP 354 mL 06/29/20 25 Active dicyclomine (BENTYL) 20 mg tabletIndicat ions:Abdomina l Pain with Cramps Take 1 tablet (20 mg total) by mouth every 6 (six) hours 20 tablet 07/05/20 25 Active fidaxomicin (DIFICID) tabletIndicat ions:Clostrid ioides difficile infection Take 1 tablet (200 mg total) by mouth 2 (two) times a day for 10 days 20 tablet 07/06/20 25 025 Active vancomycin (VANCOCIN) 125 mg capsuleIndica tions:Clostri dioides difficile infection Take 1 capsule (125 mg total) by mouth 4 (four) times a day for 10 days 40 capsule 07/07/20 25 025 Active ondansetron (ZOFRAN) 8 mg tablet Take 0.5-1 tablets (4-8 mg total) by mouth every 6 (six) hours as needed for nausea or vomiting 60 tablet 07/11/20 Active atorvastatin (LIPITOR) 40 mg tabletIndicat ions:hyperlip idemia Take 1 tablet (40 mg total) by mouth daily 30 tablet 1 08/13/20 21 025 Discontinued(Gonzalo ruiz Reported) albuterol HFA (PROVENTIL HFA,VENTOLIN HFA,PROAIR HFA) 90 mcg/actuation inhaler 2 puffs every 4 (four) hours as needed 04/03/20 025 Discontinued( erapy completed) famotidine (PEPCID) 20 mg tablet Take 1 tablet (20 mg total) by mouth daily as needed for indigestion or heartburn 180 tablet 3 04/17/20 025 Discontinued( erapy completed) dicyclomine (BENTYL) 20 mg tablet Take 1 tablet (20 mg total) by mouth 4 (four) times a day as needed (abdominal pain/cramping) 360 capsule 3 04/17/20 23 025 Discontinued(Re order) cephalexin (KEFLEX) 500 mg capsule Take 1 capsule (500 mg total) by mouth every 12 (twelve) hours 11/20/19 24 025 Discontinued( erapy completed) DULoxetine DR (CYMBALTA) 30 mg capsule Take 1 capsule (30 mg total) by mouth daily 30 capsule 11 03/14/20 25 025 Discontinued( erapy completed) prucalopride (MOTEGRITY) 2 mg tablet Take 1 tablet (2 mg total) by mouth daily 30 tablet 3 03/14/20 25 025 Discontinued( erapy completed) ondansetron (ZOFRAN) 8 mg tablet Take 0.5-1 tablets (4-8 mg total) by mouth every 6 (six) hours as needed for nausea or vomiting 20 tablet 06/06/20 25 025 Discontinued(Re order) sodium, potassium & mag sulfates (Suprep Bowel Prep Kit) 17.5-3.13-1.6 gram recon solnIndicatio ns:Bowel Evacuation MIX AND DRINK INSTRUCTED FOR BOWEL PREP 354 mL 06/29/20 025 Discontinued Active Problems Problem Noted Date Diagnosed Date [...] 09/03/2023 Assessment & Plan (09/17/2023 9:54 AM BELT BACK OPERATOR): Diet as tolerates. Continue bowel regimen if needed to avoid straining. No submerging incision for 1 more week. Light duty for another 2 weeks. Patient will call us back with any further questions or concerns. Assessment & Plan (09/03/2023 8:54 AM BELT BACK OPERATOR): I will discuss her case with [...] (09/10/2022): Added automatically from request for surgery [id number] Cyclical vomiting 09/05/2022 Gastritis 09/05/2022 Gastroesophageal reflux [...] 08/13/2021 Assessment & Plan (08/13/2021 9:33 AM BELT BACK OPERATOR): Pt complains of pain with urination. Pt also complains of suprapubic pain. Plan - Urine analysis TIA (transient ischemic attack) 08/11/2021 Assessment & Plan (08/13/2021 9:29 AM BELT BACK OPERATOR): Sarahy Gill 51-year-old female presenting with [...] mg Assessment & Plan (08/12/2021 6:00 PM BELT BACK OPERATOR): Sarahy Gill 51-year-old female presenting with [...] recommendations Assessment & Plan (08/09/2021 6:14 PM BELT BACK OPERATOR): Patient has a history of IBS [...] agitation/anxiety Assessment & Plan (08/13/2021 9:30 AM BELT BACK OPERATOR): Currently mood at baseline. Continue home med Celexa Assessment & Plan (08/12/2021 5:53 PM BELT BACK OPERATOR): Currently mood at baseline. Continue home med Celexa Assessment & Plan (08/09/2021 6:30 PM BELT BACK OPERATOR): Per patient has a history of bipolar depressive type Stable at this time Not currently on any medication Patient denies any suicidal homicidal ideation Intussusception intestine 08/09/2021 Assessment & Plan (08/09/2021 6:36 PM BELT BACK OPERATOR): 08/08/2021 CT abdomen/pelvis with contrast: Possible [...] q.day Assessment & Plan (08/13/2021 9:29 AM BELT BACK OPERATOR): Blood pressure has been under control Metoprolol restarted Assessment & Plan (08/12/2021 5:49 PM BELT BACK OPERATOR): Blood pressure has been under control Metoprolol has been on hold-to allow for permissive hypertension for the next 24 hours, will restart tomorrow Assessment & Plan (08/09/2021 6:31 PM BELT BACK OPERATOR): Have reviewed 24 hour blood pressures [...] consult: Assessment & Plan (08/09/2021 6:12 PM BELT BACK OPERATOR): CT abdomen pelvis with contrast at [place] yesterday showed intussusception CT abdomen pelvis with contrast at [facility]: Showed resolution of intussusception Patient [...] monitor Assessment & Plan (08/13/2021 9:29 AM BELT BACK OPERATOR): Currently in sinus rhythm. Eliquis on hold will resume on August 15. Continue with flecainide Metoprolol restarted Assessment & Plan (08/12/2021 5:54 PM BELT BACK OPERATOR): Currently in sinus rhythm. Eliquis on hold will resume on August 15. Continue with flecainide Metoprolol on hold will resume tomorrow Assessment & Plan (08/09/2021 6:18 PM BELT BACK OPERATOR): No acute events since admission Patient on Eliquis Metoprolol for rate control with hold parameters Will continue to monitor Essential tremor 10/12/2018 Assessment & Plan (08/13/2021 9:30 AM BELT BACK OPERATOR): B/l hand with tremor - no changes in strength Assessment & Plan (08/09/2021 6:30 PM BELT BACK OPERATOR): Patient reports after waking up had [...] consult Assessment & Plan (08/13/2021 9:30 AM BELT BACK OPERATOR): Currently in no acute exacerbation. -continue Bentyl Assessment & Plan (08/12/2021 5:47 PM BELT BACK OPERATOR): Currently in no acute exacerbation. -continue Bentyl Assessment & Plan (08/09/2021 6:15 PM BELT BACK OPERATOR): Patient on Bentyl Monitoring electrolytes Assessment [...] ibs-d. Will get all the records from [place] and then regroup to discuss possible treatment options. Orthostatic dizziness 09/16/2016 Palpitations 07/29/2016 Migraine headache 07/29/2016 Assessment & Plan (12/18/2021 4:59 PM CDT): Started home Topamax Assessment & Plan (08/09/2021 6:17 PM BELT BACK OPERATOR): Patient not complaining of headache or migraines at this time Sumatriptan on hold Hypokalemia Encounters Date Type Department Care Team Description 07/05/2025 1:00 PM BELT BACK OPERATOR - 07/05/2025 11:59 PM BELT BACK OPERATOR Hospital Encounter [address] [address] Loose stools; Colitis Discharge Disposition: Discharge to home or self care 07/05/[address] [facility] Gastro[facility]ology [address] [facility] 12[address] [place] [address] [place] [address] Katharine Carty 06/30/2025 Results Follow-Up [facility] Gastroenterology [address] [place] [address] Medical Office Building [address], [address] [place] [address] Lauren Fuentes PA XR KUB, C. difficile testing Stool, Cryptosporidium and Giardia antigen assay Stool, Additional followed-up results: 2 06/23/[address] [facility] [address] [facility] [address] [place] [address] Evelyn Kerns LPN GI Preprocedure 06/22/2025 Results Follow-Up [facility] Gastroenterology [address] [place] [address] Medical Office [address] [place] [address] Lauren Fuentes PA MR Body Outside Consult 06/21/[address] [facility] G[facility] Medical Office Building [address] [place] [address] Lauren Fuentes PA 06/20/2025 7:12 PM CDT - 06/20/2025 11:59 PM CDT Hospital Encounter [facility] [address] [place] [address] Diagnosis unknown Discharge Disposition: Discharge to home or self care 06/16/2025 11:20 AM CDT - 06/16/2025 11:59 PM CDT Hospital Encounter [facility] [address] [place] [address] Loose stools Discharge Disposition: Discharge to home or self care 06/16/2025 10:40 AM CDT Office Visit [facility] [address] [facility] 2nd [address] [place] [address] Lauren Fuentes PA Loose stools (Primary Dx); Colitis; Gastroesophageal reflux disease without esophagitis; Regurgitation of food; Dyssynergic defecation; Bloating; Pancreatic divisum; Celiac artery stenosis 06/06/2025 6:16 PM CDT - 06/06/2025 11:59 PM CDT Hospital Encounter [facility] [address] [place] [address] Discharge Disposition: Discharge to home or self care 04/24/[address] [facility] [address] [facility] 12th [place] [address] [place] [address] Katharine Carty from Last 3 Months Immunizations [...] oz pur e alcohol) on occasion [facility] Utilities Answer Date Recorded In the past 12 months has [employer], gas, oil, or water [employer] threatened to shut off services in your [...] often do you attend chur ch or muslim services? Never 09/09/2023 Do you belong to [...] on file Legal Sex Female 10:06 AM BELT BACK OPERATOR Gender Identity Female 06/17/2024 7:02 AM [...] 06/27/2025 10:00 AM CDT Plan of Treatment Scheduled Procedures Name [...] Procedure Name Priority Date/Time Associated Diagnosis Comments CALPROTECTIN, FECAL Routine 07/05/2025 1 :00 PM BELT BACK OPERATOR Loose stools Colitis PANCREATIC ELASTASE, STOOL Routine 07/05/2025 1:00 PM BELT BACK OPERATOR Loose stools C. DIFFICILE TESTING Routine 07/05/2025 1:00 PM BELT BACK OPERATOR Loose stools Colitis CRYPTOSPORIDIUM AND GIARDIA ANTIGEN ASSAY Routine 07/05/2025 1:00 PM BELT BACK OPERATOR Loose stools Colitis MR BODY OUTSIDE CONSULT Routine 06/20/2025 7:12 [...] Recently Relevant to Health Maintenance Results * (ABNORMAL) C. difficile testing Stool (07/05/2025 1:00 PM BELT BACK OPERATOR) [facility] Result Positive Negative Comment:Critical result call ed to and read back by Katharine Carty ([phone]) on 07/05/2025 15:49:52 BELT BACK OPERATOR to [id number]. Toxin Result Positive Negative BREN GONZALEZ ([place]) Comment:Critical result call ed to and read back by Katharine Carty ([phone]) on 07/05/2025 15:49:52 BELT BACK OPERATOR to [id number]. C. diff result Positive, free toxin(A) Negative, free toxin [facility] ([place]) C. diff interp Toxigenic Clostridioides (Clostridium) difficile detected. Analysis was performed using a two-step methodology using glutamate dehydrogenase antigen detection followed by detection of C. difficile toxin(s). [facility] ([place]) Stool 07/05/2025 1:00 PM BELT BACK OPERATOR 07/05/2025 2:51 PM BELT BACK OPERATOR Lauren [facility] MICROBIOLOGY - GENER AL ORDERABLES Final Result BREN GONZALEZ ([place]) [address] [place] [address] * Calprotectin, fecal (07/05/2025 1:00 PM BELT BACK OPERATOR) Calprotectin, fecal <50.0 <50.0 (Normal) mcg/g [facility] Comment: Test Performed by: [place] [address] Rn Lpn Lvn: Sammie Larsen Ph.D.; CLIA# [id number] Stool 07/05/2025 1:00 PM BELT BACK OPERATOR 07/05/2025 2:52 PM BELT BACK OPERATOR Lauren [facility]STREJ[facility] LAB BODY FLUIDS AND STOO LS ORDERABLES Final Result Performing Organization Address City/[facility] Co de Phone Number BREN GONZALEZ ([place]) [address] [place] [address] [facility] * Cryptosporidium and Giardia antigen assay Stool (07/05/2025 1:00 PM BELT BACK OPERATOR) Giardia Ag Negative Negative Comment:Testing performed by : [facility], [address] [place] [address], [place]., [address] Cryptosporidium Ag Negative Negative Guy BEAUCHAMP LISA ([place]) Comment: Interpretive data: Testing performed by the [facility] using an immunoassay that detects Cryptosporidium and Giardia antigens in stool specimens. If comprehensive examination for ova and parasites is required, please request Ova and Parasite Examination. Testing performed by: [facility], [address] [facility] [place]., [address] Stool 07/05/2025 1:00 PM BELT BACK OPERATOR 07/05/2025 8:41 PM BELT BACK OPERATOR us Lauren [facility]STREJ[facility] LAB MICROBIOLOGY - GENER AL ORDERABLES Final Result BREN GONZALEZ ([place]) [address] [place] [address] * Pancreatic elastase, stool (07/05/2025 1:00 PM BELT BACK OPERATOR) Pancreatic elastase, stool >500 >200 (Normal) mcg/g [facility] Comment: Test Performed by: [facility] [address] [place] [address] Rn Lpn Lvn: Sammie Larsen Ph.D.; CLIA# [id number] Stool 07/05/2025 1:00 PM BELT BACK OPERATOR 07/05/2025 2:50 PM BELT BACK OPERATOR Lauren CASTREJON LAB BODY FLUIDS AND STOO LS ORDERABLES Final Result Performing Organization Address [facility] Co de Phone Number BREN GONZALEZ ([place]) [address] [place] [address] [facility] * MR Body Outside Consult (06/20/2025 7:12 [...] images may or may not represent the lower brule source data set and thus may contain [...] IMAGING STUDY STUDY INITIALLY PERFORMED: 03/13/2025 at [facility]. TYPE OF STUDY: Multiple [...] She is s/p hiatal hernia repair at [facility] in 2012. Remote hx of appendectomy for [...] IMAGING STUDY STUDY INITIALLY PERFORMED: 03/13/2025 at [facility]. TYPE OF STUDY: Multiple [...] She is s/p hiatal hernia repair at [facility] in 2012. Remote hx of appendectomy for [...] images may or may not represent the lower brule source data set and thus may contain [...] signed by: Julianne Epps M.D. Lauren CASTREJON IMG XR PROCEDURES Final Result * MR Body Outside Reference (06/06/2025 6:16 PM CDT) Anatomical Region Laterality Modality N/A Magnetic Resonan ce 07/04/2025 9:53 AM BELT BACK OPERATOR Addenda Addendum by Jb Schmitt MD on 07/04/2025 9:53 AM BELT BACK OPERATOR ADDENDUM A consult was requested on 06/20/2025. Please see accession #[id number] for the consult interpretation. Edited by: Marin Morton ([place]) Electronically signed by: Jb Schmitt M.D. Impressions 06/06/2025 6:16 PM CDT These images are for Reference purposes only and have not been reviewed by [facility]. There will be no report generated by a [facility] Radiologist. Narrative 06/06/2025 6:16 PM CDT EXAMINATION: Images For Reference Purposes Only Procedure Note Jb Schmitt MD - 06/06/2025 EXAMINATION: Images For Reference Purposes Only IMPRESSION:These images are for Reference purposes only and have not beenreviewed by [facility]. There will be no reportgenerated by a [facility] Radiologist. us Rose Negron MD IMG MRI PROCEDURES Edited Resu lt - Final * Colonoscopy (02/21/2025 1:14 PM CDT) Anatomical Region Laterality Modality Other Narrative Procedure Note Marv Earl MD - 02/21/2025 1:14 PM CDT GI ENDOSCOPY [facility] Patient Name: Sarahy Gill Procedure Date: 02/21/2025 1:14 PM Date of : 1970 Admit Type: Outpatient Age: 54 Gender: Female Attending MD: Marv Earl M.D. Room: [facility] ENDOSCOPY ROOM 9 Note Status: [...] scope was passed under direct vision.The CF [id number] endoscope was introduced through the anus and advanced to the terminal ileum. The colonoscopy was performed without difficulty. The patient tolerated the procedure well. The qualityof the bowel preparation was evaluated using the BBPS ([place] Bowel Preparation Scale) with scores of:Right Colon [...] pathology results. - Follow up with primary rn embedded. - Continue home medications. - Resume previous diet. - Follow up with referring physician as previously scheduled. - In the unusual situation that you developabdominal, bleeding or other significant problems in the days following this procedure please call [phone] ask for my nurse, Abena Lam. After hours and evenings please call [phone] and speak to theGI fellow supervisor air conditioning installer. Please tell the fellow that Dr. Earl did your procedure and that you were instructed to have the fellow call me or thephysician covering for me to discuss the management of your condition. If you have an urgent problem, please goto the nearest emergency room and have the ER doctorcall my office during the day or [facility] transfer ([phone]) center after hours and weekends to arrange [...] or Most Recently Relevant to Health Maintenance Additional Health Concerns Infection Onset Date Last Indicated C. difficile 07/05/2025 07/05/2025 Insurance [facility] MEDICARE ADVANTAGE [facility] MEDICARE ADVANTAGE [place] [employer] Advance Directives For more information, please contact: [phone] Documents on File Type Date Recorded Patient Design Engineering Specialist Expl anation ADVANCE DIRECTIVE 08/14/2021 9:12 AM Raz r of Sales Marketing Director-Medical * Full Code (Latest Code Status on [...] 9:04 AM 08/21/2023 9:04 AM Care Teams Infection Control Preventionist Relationship Specialty Start Date End Date Mandeep Pennington DO PCP - General Internal Medicine 02/14/25 Mere Landa NP Nurse Practitioner 02/07/20 Tico Burton MD Surgeon General Surgery 08/09/21 Ivan Liang MD Consulting Physician General Surgery 09/09/23
--- OUTSIDE RECORDS SUMMARY | 2025-07-12 08:56 | XMS_ITS | Encounter Summary ---
Author Organization [facility] Healthcare Address [address] [place] [address] Care Team Providers Care Demonstrator Knitting Name Role Phone Mere Landa NP Unavailable [phone] Parmjit Dai MD Primary Care Provider [phone] Tico Burton MD Unavailable [phone] Ivan Liang MD Unavailable Mandeep Pennington DO Primary Care Provider [phone] Reason for Visit * Reason Onset Date Comments Scheduling Appointments 06/19/2021 confirmi ng mammogram appt Encounter Details Date Type Department Care Team (Late st Contact Info) Description 06/19/2021 Telephone [facility] [address] [place] [id number] Cheryl Trejo RT Scheduling Appointments (confirming mammogram [...] on file Legal Sex Female 10:06 AM BEAR KEEPER Gender Identity Female 06/17/2024 7:02 AM CDT [...] COVID: Suspected 07/06/2022 07/06/2022 07/06/2022 3:52 AM BEAR KEEPER COVID: Suspected 08/18/2022 08/18/2022 08/18/2022 12:59 AM BEAR KEEPER COVID: Suspected 09/19/2023 09/19/2023 09/19/2023 11:01 AM BEAR KEEPER C. difficile suspected 07/21/2024 07/21/202407/22 3:05 AM BEAR KEEPER C. difficile suspected 06/16/2025 07/05/202506/17 7:26 PM CDT C. difficile suspected 07/05/2025 07/05/202507/05 3:50 PM BEAR KEEPER C. difficile 07/05/2025 07/05/2025 documented as of this encounter Care Teams Demonstrator Knitting Relationship Specialty Start Date End Date Parmjit Dai MD PCP - General 12/31/20 02/13/25 Mandeep Pennington DO PCP - General Internal Medicine 02/14/25 Mere Landa NP Nurse Practitioner 02/07/20 Tico Burton MD Surgeon General Surgery 08/09/21 Ivan Liang MD Consulting Physician General Surgery 09/09/23 documented as of this encounter
--- OUTSIDE RECORDS SUMMARY | 2025-07-12 08:56 | XMS_ITS | Clinical Summary ---
Author Organization [facility] Address [address] [place] [address] Care Team Providers Care District Plant Superintendent Name Role Phone Mandeep Pennington DO Primary Care Provider [phone] Source Comments [facility],non-owned Affiliates and Associated Physician Practices is amultiple site organization consisting of ambulatory clinics and hospital sitesin [place], [place], [place] and [place]. This disclosure is being madepursuant to the Care Everywhere program and may not contain all information available regarding this patient. Last updated 18.[facility] Allergies Active Allergy Reactions Criticality Noted Date [...] to this non-inflammatory hypersensitivity pain disorder. Sarahy Olivares Jairo was provided additional written information regarding [...] Encounters Date Type Department Care Team Description 07/04/2025 Telephone [facility] - Rheumatology [address] [facility] [address], [address] [place] [address] Rolando Castro, Follow-up from Last 3 Months Social History Tobacco [...] 06/30/2024 9:18 AM CDT Plan of Treatment Upcoming Encounters Date Type Department Care Team (Late st Contact Info) Description 07/18/2025 11:00 AM SERVICES EXECUTIVE Office Visit [facility] - Rheumatology [address], [address] [place] [address] Rolando Castro DO [address] [place] [address] Health Maintenance Due Date Last Done Comments [...] MEDICARE AWV CALENDAR YEAR 2024 COVID-19 VACCINE ( - season) 2025 INFLUENZA VACCINE (#1) 2025 , 07/01/2022, 06/18/2022, Additional history exists MAMMOGRAM 11/10/2025 11/11/2023, 10/29, 05/20/2022 COLON MONITORING 02/21/2035 02/21/2025, 10/29/2022 COLONOSCOPY - COLON CA SCREENING 02/21/2035 02/21/2025, 10/29/2022 Colorectal Cancer Screening 02/21/2035 HEPATITIS C SCREENING Completed 06/06/2024 HIB VACCINE [...] - 06/07/2024 7:12 AM CDT Performed at: [address] [place] [address] [place] [id number] Electrical Design Technologist: Edmundo Dias PhD, Phone: [phone] Rolando Castro DO LAB - CHEMISTRY ORDERABLES Final Result [facility] INSURANCE BILL [address] [place] [address] from Last 3 Months or Most Recently Relevant to Health Maintenance Insurance [employer] [facility] MANAGED MEDICARE ADV Care Teams District Plant Superintendent Relationship Specialty Start Date End Date Mandeep Pennington DO [address] [place] [address] PCP - General Internal Medicine 06/30/24
--- OUTSIDE RECORDS SUMMARY | 2025-07-12 08:56 | XMS_ITS | Clinical Summary ---
Author Organization [facility] Address [address] [place] [address] Phone Care Team Providers Care Flour Mixer Name Role Phone Parmjit Dai MD Primary Care Provider [phone] Jazmine Kulkarni MD Unavailable [phone] Mir Spencer MD Unavailable Allergies Active Allergy [...] Comments Blood Pressure 96/66 10/29/2023 8:05 AM DIRECTOR [place] Pulse 52 10/29/2023 8:05 AM DIRECTOR [place] Temperature 36.9 C (98.4 F) 10/16/2023 8:53 AM DIRECTOR [place] Respiratory Rate 20 10/29/2023 8:05 AM DIRECTOR [place] Oxygen Saturation 100% 10/16/2023 8:53 AM DIRECTOR [place] Inhaled Oxygen Concentration - - Weight 56.7 kg (125 lb) 10/29/2023 8:05 AM DIRECTOR [place] Height 162.6 cm (5' 4) 10/29/2023 8:05 AM DIRECTOR [place] Body Mass Index 21.46 10/29/2023 8:05 AM DIRECTOR [place] Plan of Treatment Health Maintenance Due Date Last Done Comments Hepatitis C Virus (HCV) Screening 1968 Hepatitis B Immunization (1 of 3 - 19+ 3-dose series) 1987 Pap Smear 1989 Cervical Cancer Screening (CCS) 1998 HPV/Cotest 1998 Medicare Initial AWV [id number] 05/01/2010 Cologuard 2013 Pneumococcal Immunization (50+ years) (1 of 1 - PCV) 2018 Zoster Immunization (1 of 2) 2018 Immunochemical Fecal Occult Blood 06/10/2024 06/10/2023 Mammogram 11/10/2024 11/11/2023, 05/20/2022 Influenza Immunization (#1) 05/01/202507/01, 07/01/2022, 06/18/2022, Additional history exists SARS-COV-2 Immunization ( season) 2025 02/20/2021, 01/23/2021 Td Immunization Every [...] age to complete this topic Insurance MEDICAID [place] MED[facility] C [facility] Care Teams Flour Mixer Relationship Specialty Start Date End Date Parmjit Dai MD [address] [place] [address] [address] [place] [address] PCP - General Family Medicine 05/21/22 Jazmine Kulkarni MD [address] [place] [address] [address] [place] [address] Family Medicine 05/21/22 Mir Spencer MD [address] [place] [address] Consulting Physician Urology 10/29/23
--- NOTE | 2025-07-12 10:37 | ED.NAVMDI ---
HPI - Nausea/Vomiting/Diarrhea General Chief complaint: Nausea/Vomiting/Diarrhea <Jenny Leach PA-C - Last Filed: 07/12/25 19:11> Stated complaint: cdiff <Jenny Leach PA-C - Last Filed: 07/12/25 19:11> Time Seen by Provider: 07/12/25 10:37 <Jenny Leach PA-C - Last Filed: 07/12/25 19:11> Focused HPI: This is a 55 year old female that presents to the ER for positive c. diff results. Reports she was supposed to have a colonoscopy and had a stool sample done. Reports she was placed on Fidaxomicin. She was switched to vancomycin as she was not tolerating the Fidaxomicin. She messaged her GI doctor and was told to go to the ER. Reports she has had continued abdominal pain, diarrhea, weakness. Her GI doctor is Dr. Negron at [facility]: Well-appearing, well-nourished, and in no acute distress. HEAD: Normocephalic, atraumatic. CHEST: Clear to auscultation. ?No respiratory distress. HEART: Regular rate and rhythm.? NEURO: ?Alert and oriented x3. Patient screened in triage and initial orders placed.? ?Additional care and disposition to be based upon?diagnostic testing and treatment. <Jenny Leach PA-C - Last Filed: 07/12/25 19:11> Related Data Home medications: Home Medications ?Medication ?Instructions ?Recorded ?Confirmed ?Last Taken ?Type simethicone 125 mg chewable tablet 125 mg PO QID PRN Abdominal 05/28/20 06/27/25 04/24/21 21:00 History (Gas-X Extra Strength) Discomfort apixaban 5 mg tablet (Eliquis) 5 mg PO BID 10/23/23 06/27/25 07/30/24 History metoprolol succinate 25 mg 25 mg PO DAILY 10/23/23 06/27/25 07/30/24 History tablet,extended release 24 hr flecainide 100 mg tablet 100 mg PO Q12H 10/29/23 06/27/25 07/30/24 History buspirone 10 mg tablet 10 mg PO BID 07/07/24 06/27/25 07/30/24 History calcium carbonate [Calcium 600] PO 04/05/25 06/27/25 Unknown History cholecalciferol (vitamin D3) PO 04/05/25 06/27/25 Unknown History cyclobenzaprine 5 mg tablet mg PO 06/26/25 06/27/25 Unknown History aluminum-mag hydroxide-simethicone 10 ml PO QID PRN Acid Reflux 07/04/25 Unknown History 400 mg-400 mg-40 mg/5 mL oral susp (Mylanta Maximum Strength) <Jenny Leach PA-C - Last Filed: 07/12/25 19:11> Allergies/Adverse reactions: Allergies Allergy/AdvReac Type Severity Reaction Status Date / Time prochlorperazine AdvReac Severe Confusion Verified 07/12/25 08:53 metoclopramide (From Reglan) AdvReac Intermediate anxiety Verified 07/12/25 08:53 azithromycin AdvReac Unknown STOMACH Verified 07/12/25 08:53 UPSET promethazine (From Phenergan) AdvReac Jittery Verified 07/12/25 08:53 <Jenny Leach PA-C - Last Filed: 07/12/25 19:11> Review of Systems Review of Systems: All systems reviewed & are unremarkable except as noted in HPI and below <Jenny Leach PA-C - Last Filed: 07/12/25 19:11> [facility] Past Medical History Medical History: Medical History Foot pain, right Achilles tendon contracture, right Chondromalacia of right knee Anemia History of TIA (transient ischemic attack) Irritable bowel syndrome with constipation History of hyperlipidemia History of atrial fibrillation History of gastroesophageal reflux (GERD) Adenomatous colon polyp Atrial fibrillation Arthritis GERD (gastroesophageal reflux disease) Celiac disease Diverticulosis Anxiety and depression Neuropathy Migraine headache <JENNI Gann Last Filed: 07/12/25 19:11> Surgical History Surgical History: Surgical History History of endometrial ablation Hx of hernia repair Hx of laparoscopy Hx of dilation and curettage History of colonoscopy with polypectomy (03/2021) And repeat colonoscopy 2022 Status post lateral meniscectomy of right knee (07/2024) Hx of emergency section History of appendectomy History of delivery History of tubal ligation History of Gary fundoplication History of cholecystectomy <Jenny Leach PA-C - Last Filed: 07/12/25 19:11> Family History Family History: Family History Mother Family history of elevated blood lipids Family history of arthritis Sibling Family history of arthritis Grandparent Cerebrovascular accident Family history of cardiovascular disease Hypertension Diabetes mellitus Other Heart disease Acute myocardial infarction Father Alcoholism Mother Alcoholism Depression Anxiety Grandparent Throat cancer Cerebrovascular accident Heart problem <Jenny Leach PA-C - Last Filed: 07/12/25 19:11> Social History Social History: Social History Social History: She lives at home with her of 6 years. This is her 3rd marriage. She had 6 children. One son and 5 daughters. She smoked half pack of cigarettes per day since she was 14 years old but switched to vaping nicotine several years ago. She rarely drinks alcohol and only minute amounts. She uses marijuana daily. Code status: Full code (she would not want to be on the ventilator long-term or if she had no quality of life ) Surrogate decision maker: Smoking packs per day: 0.5 Smoking cigarettes per day: 10.0 Years smoked: 15 Smoking pack-years: 7.50 Tobacco type: e-cigarettes/vaping Second hand tobacco smoke exposure: No Additional smoking assessment comments: Currently vapes. Alcohol intake: never Substance use: current Substance use type: marijuana Other substance usage details: Daily Last use: 07/30/24 Living arrangements: with family Occupation/Education: other Additional occupation/education comments: disabled Gender identity (if verbalized by the patient): Female Sexual Orientation (if Verbalized by the Patient): Straight or Heterosexual Spiritual care concerns: No <Jenny Leach PA-C - Last Filed: 07/12/25 19:11> Exam Narrative: APPEARANCE: Well appearing, no pain, no distress, well-nourished. HEAD: normocephalic, atraumatic. EYES: PERRLA/EOMI, conjunctivae clear. NOSE: Normal no drainage EARS:TMS clear with good light reflex. THROAT: Pharynx clear, no exudate. NECK: Supple. No adenopathy, no masses. RESPIRATORY: Airway patent, respirations nonlabored. Clear to auscultation bilaterally, no rales, rhonchi, wheezing. CARDIOVASCULAR: Regular rate and rhythm without murmurs rubs or gallops. ABDOMINAL: Epigastric tenderness to palpation MUSCULOSKELETAL: Moves all extremities. Strength/ROM intact, No edema, No calf tenderness. NEURO: Alert. Cranial nerves II through XII intact. Good gait. Good coordination SKIN: Warm, dry. Normal Color <Kennedy Powell MD - Last Filed: 07/12/25 21:06> Course Vital Signs Vital signs: Vital Signs Temperature 97.3 F L 07/12/25 08:50 Pulse Rate 60 07/12/25 08:50 Respiratory Rate 14 07/12/25 08:50 Blood Pressure 134/87 07/12/25 08:50 Pulse Oximetry 100 07/12/25 08:50 Temperature 97.3 F L 07/12/25 08:50 Pulse Rate 58 L 07/12/25 19:24 Respiratory Rate 16 07/12/25 19:24 Blood Pressure 112/54 L 07/12/25 19:24 Pulse Oximetry 98 07/12/25 19:24 <JOSESITO GannC - Last Filed: 07/12/25 19:11> Vital Signs Temperature 97.3 F L 07/12/25 08:50 Pulse Rate 60 07/12/25 08:50 Respiratory Rate 14 07/12/25 08:50 Blood Pressure 134/87 07/12/25 08:50 Pulse Oximetry 100 07/12/25 08:50 Temperature 97.3 F L 07/12/25 08:50 Pulse Rate 58 L 07/12/25 19:24 Respiratory Rate 16 07/12/25 19:24 Blood Pressure 112/54 L 07/12/25 19:24 Pulse Oximetry 98 07/12/25 19:24 <Kennedy Powell MD - Last Filed: 07/12/25 21:06> MDM - Nausea/Vomiting/Diarrhea MDM Narrative Medical decision making narrative: 55-year-old female present to the emergency department for evaluation for decreased p.o. intake nausea vomiting and abdominal cramping. Patient is in the process of being treated for C diff. Patient did have adverse reactions to both the deficit and vancomycin. Patient was encouraged by her [facility] physician to [facility]. Patient is currently afebrile with no leukocytosis and hemoglobin of 12.8. Patient has no acute abnormalities on her CMP including normal creatinine. UA was negative for infection. CT scan showed no acute abnormality. patient was treated with IV Protonix, GI cocktail and L of lactated Ringer's. On re-evaluation patient states she does feel significantly improved. <Kennedy Powell MD - Last Filed: 07/12/25 21:06> Differential Diagnosis Differential diagnosis: Likely other ( cold meds, diverticulitis, esophagitis, toxic megacolon) <Kennedy Powell MD - Last Filed: 07/12/25 21:06> Lab Data Attestation: I reviewed the patient's lab results. <Kennedy Powell MD - Last Filed: 07/12/25 21:06> Result diagrams: 07/12/25 13:02 07/12/25 13:02 <Jenny Leach PA-C - Last Filed: 07/12/25 19:11> Labs: Lab Results 07/12/25 07/12/25 Range/Units 13:02 13:50 WBC 4.8 (4.5-10.0) K/mm3 RBC 4.24 (4.2-5.4) M/mm3 Hgb 12.8 (12.0-15.0) g/dL Hct 39.2 (37.0-47.0) % MCV 92.5 (80-100) fl MCH 30.2 (26-34) pg MCHC 32.7 (32-36) g/dl RDW 12.5 (11.5-14.5) % Plt Count 266 (150-375) k/mm3 MPV 10.0 (7.4-10.4) fl Immature Gran % (Auto) 0.2 (0-0.5) % Neut % (Auto) 53.4 (45.5-73.1) % Lymph % (Auto) 34.9 (18.3-44.2) % Mcmullen % (Auto) 10.7 H (2.6-8.5) % Eos % (Auto) 0.6 (0-4.4) % Baso % (Auto) 0.2 (0.2-1.2) % Lymph # (Auto) 1.69 (0.9-3.2) K/mm3 Mcmullen # (Auto) 0.5 (0.1-0.6) K/mm3 Eos # (Auto) 0.0 (0-0.3) K/mm3 Baso # (Auto) 0.0 (0.0-0.1) K/mm3 Abs Immat Gran (auto) 0.01 (0.00-0.031) K/mm3 Absolute Neuts (auto) 2.6 (1.3-6.7) K/mm3 Absolute Nucleated RBC 0.000 (0.0-0.012) K/mm3 Nucleated RBC % 0.0 (0.0-0.2) % Sodium 139 (137-145) mmol/L Potassium 3.5 (3.4-5.0) mmol/L Chloride 101 (98-107) mmol/L Carbon Dioxide 26 (22-30) mmol/L Anion Gap 12 (4-12) mmol/L BUN 9 (7-17) mg/dL Creatinine 0.74 (0.7-1.0) mg/dL Estim Creat Clear Calc 63 ml/min Estimated GFR > 60 (59 - ) Glucose 86 (65-110) mg/dL Lactic Acid 1.0 (0.7-2.0) mmol/L Calcium 9.1 (8.4-10.2) mg/dL Total Bilirubin 0.4 (0.2-1.3) mg/dL AST 29 (14-36) U/L ALT 14 (6-35) U/L Alkaline Phosphatase 71 (38-126) U/L Total Protein 8.1 (6.3-8.2) g/dL Albumin 4.7 (3.5-5.1) g/dL Lipase 146 (23-300) U/L Urine Color Yellow (Yellow) Urine Appearance Clear (Clear) Urine pH 5.5 (5.0-9.0) Ur Specific [place] 1.012 (1.001-1.035) Urine Protein Negative (Negative) mg/dL Urine Glucose (UA) Negative (Negative) mg/dL Urine Ketones 2+ H (Negative) mg/dL Ur Blood (Man) Negative (Negative) Urine Nitrate Negative (Negative) Urine Bilirubin Negative (Negative) Urine Urobilinogen 0.2 (<2.0) mg/dL Leukocyte Esterase Rfl Trace H (Negative) NEHA/UL Urine RBC 0-2 (0-2) /hpf Urine WBC 0-5 (0-3) /hpf Ur Squamous Epith Cells None seen (Few) /hpf Urine Bacteria None seen /hpf Urine Casts 0-2 <Jenny Leach PA-C - Last Filed: 07/12/25 19:11> Lab Results 07/12/25 07/12/25 Range/Units 13:02 13:50 WBC 4.8 (4.5-10.0) K/mm3 RBC 4.24 (4.2-5.4) M/mm3 Hgb 12.8 (12.0-15.0) g/dL Hct 39.2 (37.0-47.0) % MCV 92.5 (80-100) fl MCH 30.2 (26-34) pg MCHC 32.7 (32-36) g/dl RDW 12.5 (11.5-14.5) % Plt Count 266 (150-375) k/mm3 MPV 10.0 (7.4-10.4) fl Immature Gran % (Auto) 0.2 (0-0.5) % Neut % (Auto) 53.4 (45.5-73.1) % Lymph % (Auto) 34.9 (18.3-44.2) % Mcmullen % (Auto) 10.7 H (2.6-8.5) % Eos % (Auto) 0.6 (0-4.4) % Baso % (Auto) 0.2 (0.2-1.2) % Lymph # (Auto) 1.69 (0.9-3.2) K/mm3 Mcmullen # (Auto) 0.5 (0.1-0.6) K/mm3 Eos # (Auto) 0.0 (0-0.3) K/mm3 Baso # (Auto) 0.0 (0.0-0.1) K/mm3 Abs Immat Gran (auto) 0.01 (0.00-0.031) K/mm3 Absolute Neuts (auto) 2.6 (1.3-6.7) K/mm3 Absolute Nucleated RBC 0.000 (0.0-0.012) K/mm3 Nucleated RBC % 0.0 (0.0-0.2) % Sodium 139 (137-145) mmol/L Potassium 3.5 (3.4-5.0) mmol/L Chloride 101 (98-107) mmol/L Carbon Dioxide 26 (22-30) mmol/L Anion Gap 12 (4-12) mmol/L BUN 9 (7-17) mg/dL Creatinine 0.74 (0.7-1.0) mg/dL Estim Creat Clear Calc 63 ml/min Estimated GFR > 60 (59 - ) Glucose 86 (65-110) mg/dL Lactic Acid 1.0 (0.7-2.0) mmol/L Calcium 9.1 (8.4-10.2) mg/dL Total Bilirubin 0.4 (0.2-1.3) mg/dL AST 29 (14-36) U/L ALT 14 (6-35) U/L Alkaline Phosphatase 71 (38-126) U/L Total Protein 8.1 (6.3-8.2) g/dL Albumin 4.7 (3.5-5.1) g/dL Lipase 146 (23-300) U/L Urine Color Yellow (Yellow) Urine Appearance Clear (Clear) Urine pH 5.5 (5.0-9.0) Ur Specific [place] 1.012 (1.001-1.035) Urine Protein Negative (Negative) mg/dL Urine Glucose (UA) Negative (Negative) mg/dL Urine Ketones 2+ H (Negative) mg/dL Ur Blood (Man) Negative (Negative) Urine Nitrate Negative (Negative) Urine Bilirubin Negative (Negative) Urine Urobilinogen 0.2 (<2.0) mg/dL Leukocyte Esterase Rfl Trace H (Negative) NEHA/UL Urine RBC 0-2 (0-2) /hpf Urine WBC 0-5 (0-3) /hpf Ur Squamous Epith Cells None seen (Few) /hpf Urine Bacteria None seen /hpf Urine Casts 0-2 <Kennedy Powell MD - Last Filed: 07/12/25 21:06> Imaging Data Radiologist's impression: ITS Impressions Abdomen/Pelvis CT 07/12/25 15:22 IMPRESSION: No significant abnormality is seen. <Jenny Leach PA-C - Last Filed: 07/12/25 19:11> Critical Care Time Critical Care Time Critical Care Time: No <Jenny Leach PA-C - Last Filed: 07/12/25 19:11> Discharge Plan Discharge Clinical Impression: Esophagitis Gastritis Qualifiers: Gastritis type: unspecified gastritis Chronicity: acute Gastritis bleeding: without bleeding Qualified Code(s): K29.00 - Acute gastritis without bleeding <Jenny Leach PA-C - Last Filed: 07/12/25 19:11> Patient Disposition: Home <JENNI Gann Last Filed: 07/12/25 19:11> Condition: Stable <JENNI Gann Last Filed: 07/12/25 19:11> Instructions: Antibiotic Form, Clear Liquid Diet (ED), Diet for Stomach Ulcers and Gastritis (ED), Acute Nausea and Vomiting (ED) <JENNI Gann Last Filed: 07/12/25 19:11> Additional Instructions: clear liquid diet for the next 1-3 days. Omeprazole as directed for the next 14 days. Zofran as needed for nausea control. Continue to have close follow-up with your GI physician. If you have any worsening symptoms please call or return to the emergency department. <Jenny Leach PA-C - Last Filed: 07/12/25 19:11> Patient Language: Thai <Jenny Leach PA-C - Last Filed: 07/12/25 19:11> Prescriptions: New methylprednisolone [Medrol (Sarkis)] 4 mg tablets,dose pack See Rx Instructions .ROUTE .COMPLEX Qty: 21 0RF Rx Instructions: for 6 days ondansetron 4 mg tablet,disintegrating 4 mg PO Q8H PRN (Reason: nausea and vomiting) Qty: 14 0RF No Action metoprolol succinate 25 mg tablet extended release 24 hr 25 mg PO DAILY Eliquis 5 mg tablet 5 mg PO BID flecainide 100 mg tablet 100 mg PO Q12H calcium carbonate [Calcium 600] PO cholecalciferol (vitamin D3) PO gabapentin 100 mg capsule 200 mg PO QHS Qty: 60 2RF Rx Instructions: take two hours before desired sleep time cyclobenzaprine 5 mg tablet PO alum-mag hydroxide-simeth [Mylanta Maximum Strength] 400-400-40 mg/5 mL suspension 10 ml PO QID PRN (Reason: Acid Reflux) Patient Comments: Patient states she takes in between meals and before bed. buspirone 10 mg tablet 10 mg PO BID ondansetron 4 mg tablet,disintegrating 4 mg PO Q8H PRN (Reason: nausea and vomiting) Qty: 14 0RF simethicone [Gas-X Extra Strength] 125 mg Tablet,Chewable 125 mg PO QID PRN (Reason: Abdominal Discomfort) Patient Comments: Patient states that she takes one between meals. dicyclomine 20 mg tablet 20 mg PO TID PRN (Reason: Abdominal Discomfort) Qty: 15 0RF <Jenny Leach PA-C - Last Filed: 07/12/25 19:11> Follow-up/Referrals: Mandeep Pennington DO [Primary Care Provider, Internal Medicine] <Jenny Leach PA-C - Last Filed: 07/12/25 19:11>
--- OUTSIDE RECORDS SUMMARY | 2025-07-12 13:02 | XMS_ITS | Encounter Summary ---
Author Organization [facility] Address [address] [place] [address] Phone Care Team Providers Care Qa Auditor Name Role Phone Mere Landa NP Unavailable [phone] Tico Burton MD Unavailable [phone] Ivan Liang MD Unavailable Mandeep Pennington DO Primary Care Provider [phone] Encounter Details Date Type Department Care Team (Latest Contact Info) Description 06/30/2025 Results Follow-Up [facility] Medicine Gastroenterology [address] [place] [address] Medical Office [address] [place] [address] Lauren Fuentes PA [address] [place] [address] XR KUB, C. difficile testing Stool, Cryptosporidium and Giardia antigen assay Stool, Additional followed-up results: 2 Social History Tobacco Use Types Packs/Day Years Used Date Smoking Tobacco: Every Day Vaping Passive Smoke Exposure: Never Smokeless Tobacco: Never Comments:off and on Alcohol Use Standard Drinks/Week Comments No 0 (1 standard drink = 0.6 oz pur e alcohol) on occasion [facility] Utilities Answer Date Recorded In the past 12 months has th e [employer], gas, oil, or water [email or web address] threatened to shut off services in your [...] often do you attend chur ch or jainism services? Never 09/09/2023 Do you belong to [...] Legal Sex Female 10:06 AM DIRECTOR OF CODING Gender Identity Female 06/17/2024 7:02 AM CDT [...] on: 07/06/2025 08:03 AM Modules accepted: Orders CTOR OF CODING * Telephone Encounter - Evelyn Kerns LPN [...] Will also send information to patient via iRates. All questions answered. ----- Message from LUCÍA Amaya sent at 07/05/2025 4:03 PM DIRECTOR OF CODING ----- C. Diff is positive. Is she still on other antibiotics? Let me know as we may need to adjust her C.Diff treatment. We need to delay colonoscopy and treat with Fidaxomicin 200mg twice daily for 10 days. (Potentially longer depending on if she is on other antibiotics) ----- Message ----- From: Interface, Lab Results In Sent: 07/05/2025 3:50 PM DIRECTOR OF CODING To: LUCÍA Dunham CTOR OF CODING CTOR OF CODING documented in this encounter Plan of Treatment Scheduled Procedures Name Priority Associated Diagnoses Date/Ti me ESOPHAGOGASTRODUODENOSCOPY Open Access Gastroesophageal reflux disease, unspecified whether esophagitis present ESOPHAGOGASTRODUODENOSCOPY Open Access Dysphagia, unspecified type documented as of this encounter Visit Diagnoses Not on filedocumented in this encounter Additional Health Concerns Infection Onset Date Last Indicated Resolved Time C. difficile suspected 07/05/2025 07/05/202507/05 3:50 PM DIRECTOR OF CODING C. difficile 07/05/2025 07/05/2025 documented as of this encounter Care Teams Qa Auditor Relationship Specialty Start Date End Date Mandeep Pennington DO PCP - General Internal Medicine 02/14/25 Mere Landa NP Nurse Practitioner 02/07/20 Tico Burton MD Surgeon General Surgery 08/09/21 Ivan Liang MD Consulting Physician General Surgery 09/09/23 documented as of this encounter
--- OUTSIDE RECORDS SUMMARY | 2025-07-12 13:02 | XMS_ITS | Clinical Summary ---
Author Organization [facility] Omar granado [facility] Address [address] [address] Care Team Providers Care Semiconductor Wafers Etcher Stripper Name Role Phone Unavailable Primary Care Provider [...] st Contact Info) Description 09/26/2025 10:30 AM HAIR SPRING WINDER Office Visit [facility] Oncology and Hematology - [place] [facility] [address] [address] Vicente Vail MD [address] [facility] [place] [address] Health Maintenance Due Date Last [...] 2) 2018 INFLUENZA VACCINE (#1) 2025 Insurance [facility] [id number]
--- OUTSIDE RECORDS SUMMARY | 2025-07-12 13:03 | XMS_ITS | Encounter Summary ---
Author Organization [facility] Address [address] [place] [address] Care Team Providers Care Microcomputer Technician Name Role Phone Mere Landa NP Unavailable [phone] Parmjit Dai MD Primary Care Provider [phone] Tico Burton MD Unavailable [phone] Ivan Liang MD Unavailable Mandeep Pennington DO Primary Care Provider [phone] Reason for Visit * Reason Onset Date Comments Scheduling Appointments 06/19/2021 confirmi ng mammogram appt Encounter Details Date Type Department Care Team (Late st Contact Info) Description 06/19/2021 Telephone [facility] [address] [place] [id number] Cheryl Trejo RT Scheduling Appointments (confirming mammogram [...] on file Legal Sex Female 10:06 AM GLASS GRINDER Gender Identity Female 06/17/2024 7:02 AM CDT [...] COVID: Suspected 07/06/2022 07/06/2022 07/06/2022 3:52 AM GLASS GRINDER COVID: Suspected 08/18/2022 08/18/2022 08/18/2022 12:59 AM GLASS GRINDER COVID: Suspected 09/19/2023 09/19/2023 09/19/2023 11:01 AM GLASS GRINDER C. difficile suspected 07/21/2024 07/21/202407/22 3:05 AM GLASS GRINDER C. difficile suspected 06/16/2025 07/05/202506/17 7:26 PM CDT C. difficile suspected 07/05/2025 07/05/202507/05 3:50 PM GLASS GRINDER C. difficile 07/05/2025 07/05/2025 documented as of this encounter Care Teams Microcomputer Technician Relationship Specialty Start Date End Date Parmjit Dai MD PCP - General 12/31/20 02/13/25 Mandeep Pennington DO PCP - General Internal Medicine 02/14/25 Mere Landa NP Nurse Practitioner 02/07/20 Tico Burton MD Surgeon General Surgery 08/09/21 Ivan Liang MD Consulting Physician General Surgery 09/09/23 documented as of this encounter
--- OUTSIDE RECORDS SUMMARY | 2025-07-12 13:03 | XMS_ITS | Clinical Summary ---
Author Organization [facility] HealthCare Care Team Providers Care Whale Trainer Name Role Phone CordellMere NP Unavailable [phone] Tico Burton MD Unavailable [phone] Ivan Liang MD Unavailable Mandeep Pennington DO Primary Care Provider [phone] Allergies Active Allergy Reactions Criticality Noted Date [...] 09/03/2023 Assessment & Plan (09/17/2023 9:54 AM COMMERCIAL DRIVER'S LICENSE DRIVER): Diet as tolerates. Continue bowel regimen if needed to avoid straining. No submerging incision for 1 more week. Light duty for another 2 weeks. Patient will call us back with any further questions or concerns. Assessment & Plan (09/03/2023 8:54 AM COMMERCIAL DRIVER'S LICENSE DRIVER): I will discuss her case with GI. [...] (09/10/2022): Added automatically from request for surgery [id number] Cyclical vomiting 09/05/2022 Gastritis 09/05/2022 Gastroesophageal reflux [...] 08/13/2021 Assessment & Plan (08/13/2021 9:33 AM COMMERCIAL DRIVER'S LICENSE DRIVER): Pt complains of pain with urination. Pt also complains of suprapubic pain. Plan - Urine analysis TIA (transient ischemic attack) 08/11/2021 Assessment & Plan (08/13/2021 9:29 AM COMMERCIAL DRIVER'S LICENSE DRIVER): Sarahy Gill 51-year-old female presenting with left [...] mg Assessment & Plan (08/12/2021 6:00 PM COMMERCIAL DRIVER'S LICENSE DRIVER): Sarahy Gill 51-year-old female presenting with left [...] recommendations Assessment & Plan (08/09/2021 6:14 PM COMMERCIAL DRIVER'S LICENSE DRIVER): Patient has a history of IBS with [...] agitation/anxiety Assessment & Plan (08/13/2021 9:30 AM COMMERCIAL DRIVER'S LICENSE DRIVER): Currently mood at baseline. Continue home med Celexa Assessment & Plan (08/12/2021 5:53 PM COMMERCIAL DRIVER'S LICENSE DRIVER): Currently mood at baseline. Continue home med Celexa Assessment & Plan (08/09/2021 6:30 PM COMMERCIAL DRIVER'S LICENSE DRIVER): Per patient has a history of bipolar depressive type Stable at this time Not currently on any medication Patient denies any suicidal homicidal ideation Intussusception intestine 08/09/2021 Assessment & Plan (08/09/2021 6:36 PM COMMERCIAL DRIVER'S LICENSE DRIVER): 08/08/2021 CT abdomen/pelvis with contrast: Possible cystitis, [...] q.day Assessment & Plan (08/13/2021 9:29 AM COMMERCIAL DRIVER'S LICENSE DRIVER): Blood pressure has been under control Metoprolol restarted Assessment & Plan (08/12/2021 5:49 PM COMMERCIAL DRIVER'S LICENSE DRIVER): Blood pressure has been under control Metoprolol has been on hold-to allow for permissive hypertension for the next 24 hours, will restart tomorrow Assessment & Plan (08/09/2021 6:31 PM COMMERCIAL DRIVER'S LICENSE DRIVER): Have reviewed 24 hour blood pressures and [...] consult: Assessment & Plan (08/09/2021 6:12 PM COMMERCIAL DRIVER'S LICENSE DRIVER): CT abdomen pelvis with contrast at [facility] yesterday showed intussusception CT abdomen pelvis with contrast at [facility]: Showed resolution of intussusception Patient has generalized [...] monitor Assessment & Plan (08/13/2021 9:29 AM COMMERCIAL DRIVER'S LICENSE DRIVER): Currently in sinus rhythm. Eliquis on hold will resume on August 15. Continue with flecainide Metoprolol restarted Assessment & Plan (08/12/2021 5:54 PM COMMERCIAL DRIVER'S LICENSE DRIVER): Currently in sinus rhythm. Eliquis on hold will resume on August 15. Continue with flecainide Metoprolol on hold will resume tomorrow Assessment & Plan (08/09/2021 6:18 PM COMMERCIAL DRIVER'S LICENSE DRIVER): No acute events since admission Patient on Eliquis Metoprolol for rate control with hold parameters Will continue to monitor Essential tremor 10/12/2018 Assessment & Plan (08/13/2021 9:30 AM COMMERCIAL DRIVER'S LICENSE DRIVER): B/l hand with tremor - no changes in strength Assessment & Plan (08/09/2021 6:30 PM COMMERCIAL DRIVER'S LICENSE DRIVER): Patient reports after waking up had increase [...] consult Assessment & Plan (08/13/2021 9:30 AM COMMERCIAL DRIVER'S LICENSE DRIVER): Currently in no acute exacerbation. -continue Bentyl Assessment & Plan (08/12/2021 5:47 PM COMMERCIAL DRIVER'S LICENSE DRIVER): Currently in no acute exacerbation. -continue Bentyl Assessment & Plan (08/09/2021 6:15 PM COMMERCIAL DRIVER'S LICENSE DRIVER): Patient on Bentyl Monitoring electrolytes Assessment & [...] ibs-d. Will get all the records from [facility] and then regroup to discuss possible treatment options. Orthostatic dizziness 09/16/2016 Palpitations 07/29/2016 Migraine headache 07/29/2016 Assessment & Plan (12/18/2021 4:59 PM CDT): Started home Topamax Assessment & Plan (08/09/2021 6:17 PM COMMERCIAL DRIVER'S LICENSE DRIVER): Patient not complaining of headache or migraines at this time Sumatriptan on hold Hypokalemia Encounters Date Type Department Care Team Description 07/05/2025 1:00 PM COMMERCIAL DRIVER'S LICENSE DRIVER - 07/05/2025 11:59 PM COMMERCIAL DRIVER'S LICENSE DRIVER Hospital Encounter [address] [address] Loose stools; Colitis Discharge Disposition: Discharge to home or self care 07/05/2025 Telephone [facility] [address] [facility] 12th [place] [address] [place] [id number] Katharine Carty 06/30/2025 Results Follow-Up [facility] [address] [place] [address] Medical Office [address], [address] [place] [id number] Lauren Fuentes PA XR KUB, C. difficile testing Stool, Cryptosporidium and Giardia antigen assay Stool, Additional followed-up results: 2 06/23/2025 Documentation [facility] [address] [facility] Medical [address] [place] [address] Evelyn Kerns LPN GI Preprocedure 06/22/2025 Results Follow-Up [facility] [address] [place] [address] Medical [address] [place] [address] Lauren Fuentes PA MR Body Outside Consult 06/21/2025 Orders Only [facility] [facility] Medical Office [address] [place] [address] Lauren Fuentes PA 06/20/2025 7:12 PM CDT - 06/20/2025 11:59 PM CDT Hospital Encounter [facility] [address] [place] [address] Diagnosis unknown Discharge Disposition: Discharge to home or self care 06/16/2025 11:20 AM CDT - 06/16/2025 11:59 PM CDT Hospital Encounter [facility] Radiology at [facility] [address] [place] [address] Loose stools Discharge Disposition: Discharge to home or self care 06/16/2025 10:40 AM CDT Office Visit [facility] [address] [facility] 2nd Floor [address] [place] [address] Lauren Fuentes PA Loose stools (Primary Dx); Colitis; Gastroesophageal reflux disease without esophagitis; Regurgitation of food; Dyssynergic defecation; Bloating; Pancreatic divisum; Celiac artery stenosis 06/06/2025 6:16 PM CDT - 06/06/2025 11:59 PM CDT Hospital Encounter [facility] [address] [place] [address] Discharge Disposition: Discharge to home or self care 04/24/2025 Telephone [facility] [address] [facility] 12th [place] [address] [place] [address] Katharine Carty from Last 3 Months Immunizations [...] 0.6 oz pur e alcohol) on occasion [facility] Utilities Answer Date Recorded In the past 12 months has [employer], gas, oil, or water [employer] threatened to shut off services in your [...] often do you attend chur ch or mormon services? Never 09/09/2023 Do you belong to [...] on file Legal Sex Female 10:06 AM COMMERCIAL DRIVER'S LICENSE DRIVER Gender Identity Female 06/17/2024 7:02 AM [...] CALPROTECTIN, FECAL Routine 07/05/2025 1 :00 PM COMMERCIAL DRIVER'S LICENSE DRIVER Loose stools Colitis PANCREATIC ELASTASE, STOOL Routine 07/05/2025 1:00 PM COMMERCIAL DRIVER'S LICENSE DRIVER Loose stools C. DIFFICILE TESTING Routine 07/05/2025 1:00 PM COMMERCIAL DRIVER'S LICENSE DRIVER Loose stools Colitis CRYPTOSPORIDIUM AND GIARDIA ANTIGEN ASSAY Routine 07/05/2025 1:00 PM COMMERCIAL DRIVER'S LICENSE DRIVER Loose stools Colitis MR BODY OUTSIDE CONSULT [...] C. difficile testing Stool (07/05/2025 1:00 PM COMMERCIAL DRIVER'S LICENSE DRIVER) [facility] Result Positive Negative Comment:Critical result call ed to and read back by Katharine Carty ([phone]) on 07/05/2025 15:49:52 COMMERCIAL DRIVER'S LICENSE DRIVER to [id number]. Toxin Result Positive Negative BREN GONZALEZ ([place]) Comment:Critical result call ed to and read back by Katharine Carty ([phone]) on 07/05/2025 15:49:52 COMMERCIAL DRIVER'S LICENSE DRIVER to [id number]. C. diff result Positive, free toxin(A) Negative, free toxin [facility] ([place]) C. diff interp Toxigenic Clostridioides (Clostridium) difficile detected. Analysis was performed using a two-step methodology using glutamate dehydrogenase antigen detection followed by detection of C. difficile toxin(s). [facility] ([place]) Stool 07/05/2025 1:00 PM COMMERCIAL DRIVER'S LICENSE DRIVER 07/05/2025 2:51 PM COMMERCIAL DRIVER'S LICENSE DRIVER Lauren [facility] MICROBIOLOGY - GENER AL ORDERABLES Final Result BREN GONZALEZ ([place]) [address] [place] [address] * Calprotectin, fecal (07/05/2025 1:00 PM COMMERCIAL DRIVER'S LICENSE DRIVER) Calprotectin, fecal <50.0 <50.0 (Normal) mcg/g Pr[facility] ref Lab Comment: Test Performed by: [place] [address] Network Intelligence Analyst: Sammie Larsen Ph.D.; CLIA# [id number] Stool 07/05/2025 1:00 PM COMMERCIAL DRIVER'S LICENSE DRIVER 07/05/2025 2:52 PM COMMERCIAL DRIVER'S LICENSE DRIVER Lauren [facility] BODY FLUIDS AND STOO LS ORDERABLES Final Result Performing Organization Address City/[facility] Co de Phone Number BREN GONZALEZ ([place]) [address] [place] [address] [facility] * Cryptosporidium and Giardia antigen assay Stool (07/05/2025 1:00 PM COMMERCIAL DRIVER'S LICENSE DRIVER) Giardia Ag Negative Negative Comment:Testing performed by : [facility], [address] [place] [address], [place]., [address] Cryptosporidium Ag Negative Negative Guy BEAUCHAMP LISA ([place]) Comment: Interpretive data: Testing performed by the [facility] using an immunoassay that detects Cryptosporidium and Giardia antigens in stool specimens. If comprehensive examination for ova and parasites is required, please request Ova and Parasite Examination. Testing performed by: [facility], [address] [facility] [place]., [address] Stool 07/05/2025 1:00 PM COMMERCIAL DRIVER'S LICENSE DRIVER 07/05/2025 8:41 PM COMMERCIAL DRIVER'S LICENSE DRIVER us Lauren [facility] MICROBIOLOGY - GENER AL ORDERABLES Final Result BREN GONZALEZ ([place]) [address] [place] [address] * Pancreatic elastase, stool (07/05/2025 1:00 PM COMMERCIAL DRIVER'S LICENSE DRIVER) Pancreatic elastase, stool >500 >200 (Normal) mcg/g Priddy ref Lab Comment: Test Performed by: [facility] [address] [place] [address] Network Intelligence Analyst: Sammie Larsen Ph.D.; CLIA# [id number] Stool 07/05/2025 1:00 PM COMMERCIAL DRIVER'S LICENSE DRIVER 07/05/2025 2:50 PM COMMERCIAL DRIVER'S LICENSE DRIVER Lauren CASTRE[facility] BODY FLUIDS AND STOO LS ORDERABLES Final Result Performing Organization Address City/[facility] Co de Phone Number BREN GONZALEZ ([place]) [address] [place] [address] [facility] * MR Body Outside [...] images may or may not represent the nooksack source data set and thus may contain [...] IMAGING STUDY STUDY INITIALLY PERFORMED: 03/13/2025 at [facility]. TYPE OF STUDY: Multiple MR images of [...] She is s/p hiatal hernia repair at [facility] in 2012. Remote hx of appendectomy for [...] IMAGING STUDY STUDY INITIALLY PERFORMED: 03/13/2025 at [facility]. TYPE OF STUDY: Multiple MR images of [...] She is s/p hiatal hernia repair at [facility] in 2012. Remote hx of appendectomy for [...] images may or may not represent the nooksack source data set and thus may contain [...] N/A Magnetic Resonan ce 07/04/2025 9:53 AM COMMERCIAL DRIVER'S LICENSE DRIVER Addenda Addendum by Jb Schmitt MD on 07/04/2025 9:53 AM COMMERCIAL DRIVER'S LICENSE DRIVER ADDENDUM A consult was requested on 06/20/2025. Please see accession #[id number] for the consult interpretation. Edited by: Marin Morton (Grant) Electronically signed by: Jb Schmitt M.D. Impressions 06/06/2025 6:16 PM CDT These images are for Reference purposes only and have not been reviewed by [facility]. There will be no report generated by a [facility]iologist. Narrative 06/06/2025 6:16 PM CDT EXAMINATION: Images For Reference Purposes Only Procedure Note Jb Schmitt MD - 06/06/2025 EXAMINATION: Images For Reference Purposes Only IMPRESSION:These images are for Reference purposes only and have not beenreviewed by [facility]. There will be no reportgenerated by a [facility]iologist. us Rose Negron MD IMG MRI [...] Female Attending MD: Marv Earl M.D. Room: [facility] ENDOSCOPY ROOM 9 Note Status: Finalized [...] scope was passed under direct vision.The CF [id number] endoscope was introduced through the anus and advanced to the terminal ileum. The colonoscopy was performed without difficulty. The patient tolerated the procedure well. The qualityof the bowel preparation was evaluated using the BBPS ([place] Bowel Preparation Scale) with scores of:Right Colon [...] pathology results. - Follow up with primary business development assistant. - Continue home medications. - Resume previous diet. - Follow up with referring physician as previously scheduled. - In the unusual situation that you developabdominal, bleeding or other significant problems in the days following this procedure please call [phone] ask for my nurse, Abena Lam. After hours and evenings please call [phone] and speak to theGI fellow construction administrator. Please tell the fellow that Dr. Earl did your procedure and that you were instructed to have the fellow call me or thephysician covering for me to discuss the management of your condition. If you have an urgent problem, please goto the nearest emergency room and have the ER doctorcall my office during the day or [facility] transfer ([phone]) center after hours and weekends to arrange [...] Last Indicated C. 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
--- OUTSIDE RECORDS SUMMARY | 2025-07-12 13:03 | XMS_ITS | Clinical Summary ---
Author Organization [facility] Address [address] [place] [address] Phone Care Team Providers Care Road Inspector Name Role Phone Parmjit Dai MD Primary Care Provider [phone] Jazmine Kulkarni MD Unavailable [phone] Mir Spencer MD Unavailable Allergies Active Allergy [...] Comments Blood Pressure 96/66 10/29/2023 8:05 AM SAS DEVELOPER Pulse 52 10/29/2023 8:05 AM SAS DEVELOPER Temperature 36.9 C (98.4 F) 10/16/2023 8:53 AM SAS DEVELOPER Respiratory Rate 20 10/29/2023 8:05 AM SAS DEVELOPER Oxygen Saturation 100% 10/16/2023 8:53 AM SAS DEVELOPER Inhaled Oxygen Concentration - - Weight 56.7 kg (125 lb) 10/29/2023 8:05 AM SAS DEVELOPER Height 162.6 cm (5' 4) 10/29/2023 8:05 AM SAS DEVELOPER Body Mass Index 21.46 10/29/2023 8:05 AM SAS DEVELOPER Plan of Treatment Health Maintenance Due [...] age to complete this topic Insurance [place] C [facility] Care Teams Road Inspector Relationship Specialty Start Date End Date Parmjit Dai MD [address] [place] [address] [address] [place] [address] PCP - General Family Medicine 05/21/22 Jazmine Kulkarni MD [address] [place] [address] [address] [place] [address] Family Medicine 05/21/22 Mir Spencer MD [address] [place] [address] Consulting Physician Urology 10/29/23
--- OUTSIDE RECORDS SUMMARY | 2025-07-12 13:03 | XMS_ITS | Clinical Summary ---
Author Organization [facility] Address [address] [place] [address] Care Team Providers Care Merchandise Pickup/Receiving Associate Name Role Phone Mandeep Pennington DO Primary Care Provider [phone] Source Comments [facility],non-owned Affiliates and Associated Physician Practices is amultiple site organization consisting of ambulatory clinics and hospital sitesin [place], [place], [place] and [place]. This disclosure is being madepursuant to the Care Everywhere program and may not contain all information available regarding this patient. Last updated 18.[facility] Allergies Active Allergy Reactions Criticality Noted Date [...] Type Department Care Team Description 07/04/2025 Telephone [facility] Medical [facility] - Rheumatology [address] [facility], [address] [place] [address] Rolando Castro, Follow-up from Last [...] st Contact Info) Description 07/18/2025 11:00 AM REBAR BENDER Office Visit [facility] - Rheumatology [address] [facility], [address] [place] [address] Rolando Castro DO [address] [place] [address] Health Maintenance Due Date Last [...] - 06/07/2024 7:12 AM CDT Performed at: [address] [place] [address] [place] [address] [id number] Deck Hand: Edmundo Dias PhD, Phone: [phone] Rolando Castro DO LAB - CHEMISTRY ORDERABLES Final Result [facility] INSURANCE BILL [address] [place] [address] from Last 3 Months or Most Recently Relevant to Health Maintenance Insurance [employer] [facility] MANAGED MEDICARE ADV Care Teams Merchandise Pickup/Receiving Associate Relationship Specialty Start Date End Date Mandeep Pennington DO [address] [place] [address] PCP - General Internal Medicine 06/30/24
[2025-07-12 13:10] LABS: Hematocrit 39.2 % (37.0-47.0); Hemoglobin 12.8 g/dL (12.0-15.0); Immature Granulocyte Percent A 0.2 % (0-0.5); Lymphocytes Absolute Auto 1.69 K/mm3 (0.9-3.2); Mean Corpuscular HGB Conc 32.7 g/dl (32-36); Mean Corpuscular Hemoglobin 30.2 pg (26-34); Mean Corpuscular Volume 92.5 fl (80-100); Nucleated Red Blood Cells Absolute Auto 0.000 K/mm3 (0.0-0.012); Nucleated Red Blood Cells Perc 0.0 % (0.0-0.2); Platelet Count Result 266 k/mm3 (150-375); Red Blood Count 4.24 M/mm3 (4.2-5.4); White Blood Count 4.8 K/mm3 (4.5-10.0)
[2025-07-12 13:25] LABS: Alanine Aminotransferase 14 U/L (6-35); Albumin Level 4.7 g/dL (3.5-5.1); Alkaline Phosphatase 71 U/L (38-126); Anion Gap 12 mmol/L (4-12); Aspartate Amino Transferase 29 U/L (14-36); Bilirubin,Total 0.4 mg/dL (0.2-1.3); Blood Urea Nitrogen 9 mg/dL (7-17); Calcium 9.1 mg/dL (8.4-10.2); Carbon Dioxide 26 mmol/L (22-30); Chloride 101 mmol/L (98-107); Estimated CRCL calculation 63 ml/min; Estimated Glomerular Filt Rate > 60; Glucose 86 mg/dL (65-110); Lipase 146 U/L (23-300); Potassium 3.5 mmol/L (3.4-5.0); Sodium 139 mmol/L (137-145); Total Protein 8.1 g/dL (6.3-8.2)
[2025-07-12 14:01] LABS: Add Urine Microscopic? YES; Appearance Urine Clear (Clear); Glucose Urine UA Negative (Negative); Leukocyte Esterase Ur Trace LEU/UL (Negative); Nitrate Urine Negative (Negative); Non Pathogenic Casts 0-2; Specific Grav Ur 1.012 (1.001-1.035)
[2025-07-12] MEDS: LACTATED RINGERS 1,000 ML 999 ML IV CONT (16:33)
[2025-07-12] MEDS: ONDANSETRON INJ 4 MG/2 ML VIAL IV PUSH (16:33)
[2025-07-12] MEDS: BELLADONNA ALK/PHENOB ELIX 10 ML, MAG HYDROX/ALUMINUM HYD/SIMETH 30 ML, LIDOCAINE 2% VI... PO (16:34)
[2025-07-12] MEDS: PANTOPRAZOLE SODIUM IV 40 MG VIAL IV PUSH (17:01)
== END 2025-07-12 19:25 | disposition home or self-care (01) ==
PROVIDERS: Physician Assistant; Emergency Provider Emergency Medicine; PCP Internal Medicine
DX: K29.00 Acute gastritis without bleeding (principal); K21.00 Gastro-esophageal reflux disease with esophagitis, without bleeding; Z86.73 Personal history of transient ischemic attack (TIA), and cerebral infarction without residual deficits; E78.5 Hyperlipidemia, unspecified; I48.91 Unspecified atrial fibrillation; K90.0 Celiac disease; F41.8 Other specified anxiety disorders; F17.290 Nicotine dependence, other tobacco product, uncomplicated
CPT/HCPCS: 36415; 74177; 80053; 81001; 83605; 83690; 85025; 96361; 96374; 96375; 99284; A9270; J2405; J2470; J7120; Q9967

== ENCOUNTER 2025-08-03 11:20 | Outpatient (CLI) | payer OTHER, MEDICARE, SELFPAY ==
[2025-08-03 15:01] LABS: Influenza A QL RT-PCR Negative (Negative); Influenza B QL RT-PCR Negative (Negative); RSV RNA, RT-PCR Negative (Negative); SARS-CoV-2 RNA PCR Negative (Negative)
== END 2025-08-03 11:21 | disposition home or self-care (01) ==
PROVIDERS: PCP Internal Medicine
DX: J06.9 Acute upper respiratory infection, unspecified (principal); Z20.822 Contact with and (suspected) exposure to COVID-19
CPT/HCPCS: 87637